=== PATIENT | male | born 1955 | race Caucasian/White ===

== ENCOUNTER → 2018-04-02 11:00 | Outpatient (CLI) | payer OTHER, SELFPAY ==
[2018-04-02 11:14] LABS: Microscopic, Urine URINE MICROSCOPIC (MICROSCOPIC)
[2018-04-02 11:30] LABS: Basophils % 0.6 % (0.1-2.0); Eosinophils # 0.1 K/mm3 (0.0-0.4); Hematocrit 48.4 % (42.0-52.0); Hemoglobin 15.9 g/dL (14.1-18.0); Lymphocytes # 1.4 K/mm3 (0.7-4.5); Lymphocytes % 29.2 K/mm3 (10-50); Mean Corpuscular HGB Conc 32.8 g/dL (31.8-35.4); Mean Corpuscular Hemoglobin 34.2 pg (27.0-31.2); Mean Corpuscular Volume 104.2 fl (80-94); Mean Platelet Volume 7.9 fl (7.4-10.4); Monocytes # 0.4 K/mm3 (0.1-1.0); Monocytes % 8.6 % (1.7-9.3); Neutrophils # 2.9 K/mm3 (1.8-7.8); Neutrophils % 59.6 % (37.0-80.0); Platelet Count 165 K/mm3 (142-424); Red Blood Count 4.65 M/mm3 (4.60-6.20); Red Cell Distribution Width 13.1 % (11.5-17.5); White Blood Count 4.9 K/mm3 (4.8-10.8)
[2018-04-02 11:39] LABS: Hemoglobin A1C 5.2 % (0.0-7.0)
[2018-04-02 11:41] LABS: Activated Partial Thrombo Time 28.1 seconds (23.6-34.0); INR 0.94 (0.9-1.1); Prothrombin Time 9.7 seconds (9.4-11.8)
[2018-04-02 11:49] LABS: Appearance,Urine CLEAR (Clear); Bilirubin,Urine Negative (Negative); Blood, Urine Negative (Negative); Color,Urine YELLOW (Yellow); Glucose,Urine (UA) Negative (Negative); Ketones,Urine Negative (Negative); Leukocyte Esterase,Urine Negative (Negative); Nitrate,Urine Negative (Negative); Protein,Urine Negative (Negative); Specific Gravity, Urine <= 1.005 (1.005-1.030); Urobilinogen,Urine 0.2 EU/dl (0.2)
--- NOTE | 2018-04-02 11:55 | XR_ITS ---
XR chest 2V HISTORY: ITS.REASON: H/O TOBACCO USE ORDERING PHYSICIAN: Dwayne Humphrey PATIENT AGE: 62 years COMPARISON: 03/05/2012 FINDINGS: The cardiomediastinal silhouette and pulmonary vascularity are within normal limits. The lungs are clear without infiltrates, suspicious nodules, or pleural effusions. No acute bony abnormalities. IMPRESSION: Negative chest, no acute finding
[2018-04-02 11:57] LABS: Bacteria,Urine Trace /lpf; Squamous Epithelial Cell,Urine Occasional #/hpf (0-5)
[2018-04-02 12:28] LABS: Anion Gap 12.1 mEq/L (5-15); Blood Urea Nitrogen 10 mg/dL (7-18); Calcium 9.2 mg/dL (8.5-10.1); Carbon Dioxide 27 mmol/L (21.0-32.0); Chloride 108 mmol/L (98-107); Creatinine,Serum 1.04 mg/dL (0.70-1.30); Estimated Glomerular Filt Rate 72 ml/min (>60); GFR (African American) 88 ML/MIN (>60); Glucose 97 mg/dL (74-106); Potassium 5.1 mmoL/L (3.5-5.1); Sodium 142 mmol/L (136-145)
== END ==
PROVIDERS: PCP Family Medicine; Visit Provider Orthopaedic Surgery
DX: Z01.818 Encounter for other preprocedural examination (principal)
CPT/HCPCS: 36415; 71046; 80048; 81001; 83036; 85025; 85610; 85730; 87070; 93005

== ENCOUNTER → 2018-04-09 07:43 | Outpatient (CLI) | payer OTHER, SELFPAY ==
--- NOTE | 2018-04-09 08:00 | CT_ITS ---
CT lung screening EXAM: CT LUNG LOW DOSE WO CONTRAST HISTORY: Asymptomatic with 52 pack year smoking history ITS.REASON: CURRENT TOBACCO USE ORDERING PHYSICIAN: Zhao Harris MD PATIENT AGE: 62 years COMPARISON: 04/11/2012 TECHNIQUE: The exam was performed on a GE Light Speed [address] scanner using 2.90 mGy CTDI. A low dose helical CT CHEST was performed on a multi-detector scanner. All CT scans at the facility use one or more dose reduction, viz: automated exposure control, ma/kV adjustment per patient size (including targeted exams where dose is matched to indication, i.e. head), or iterative reconstruction technique. The LDCT was performed in a facility that meets the criteria for the screening program. Data regarding this exam was submitted to ACR which is an approved registry. The order for this exam indicates that it came as a result of a lung cancer screening counseling shard decision-making visit that included all the elements required of such a visit including smoking cessation. The radiologist interpreting this exam meets the CMS criteria for the LDCT lung cancer screening program. The exam is reported using the Lung-RADS classification scale and reported to the ACR registry. NOTE: This study was performed for the specific purposes of lung cancer screening and is not an alternative to diagnostic chest CT. RADIATION DOSE: CTDI vol(CT dose Index-volume) = 2.90mG DLP (Dose Length Product) = 100.29 mGcm FINDINGS: Scattered small lymph nodes are present in the mediastinum not significantly changed. There is extensive coronary artery calcification. 5 mm noncalcified nodule left upper lobe anterolaterally unchanged IMPRESSION: 1. Lung RADS Category: 2, benign 2. Other findings: Coronary artery disease RECOMMENDATIONS: 12 month LDCT follow-up
== END ==
PROVIDERS: Family Provider Family Medicine; PCP Family Medicine; Visit Provider Family Medicine
DX: Z12.2 Encounter for screening for malignant neoplasm of respiratory organs (principal); Z87.891 Personal history of nicotine dependence

== ENCOUNTER 2018-08-01 10:00 | Outpatient (RCR) | payer BC, OTHER, SELFPAY | END 2018-08-01 10:05 | disposition home or self-care (01) | LOC: PT 10:00 | PROVIDERS: Visit Provider Orthopaedic Surgery | DX: Z96.651 Presence of right artificial knee joint (principal) | CPT/HCPCS: 97010; 97014; 97016; 97110; 97140; 97163; 97164; G0283 ==

== ENCOUNTER → 2019-03-18 07:45 | Outpatient (CLI) | payer SELFPAY ==
--- NOTE | 2019-03-18 07:51 | CT_ITS ---
PROCEDURE: CT HEART W CALCIUM SCORE CLINICAL HISTORY: SCREENING COMPARISON: LUNGSCREEN CT lung screening from 04/09/2018 TECHNIQUE: Axial images obtained with sagittal and coronal reformats. All CT scans at the facility use one or more dose reduction, viz: automated exposure control, ma/kV adjustment per patient size (including targeted exams where dose is matched to indication, i.e. head), or iterative reconstruction technique. FINDINGS: Coronary artery calcium score is 1634 indicating extensive calcific plaque burden with very high cardiovascular disease risk. A 3 mm noncalcified nodules present in the left upper lobe probably unchanged given the difference in technique compared to 04/09/2018 IMPRESSION: Extensive calcific plaque burden with very high cardiovascular disease risk Dictated by: Hernandez Cotter MD 03/18/2019 18:51 Signed by: <Electronically signed by Hernandez Cotter MD in [place]> 03/18/2019 18:51
== END ==
PROVIDERS: PCP Family Medicine; Visit Provider Internal Medicine Cardiovascular Disease
DX: Z13.6 Encounter for screening for cardiovascular disorders (principal)
CPT/HCPCS: 75571

== ENCOUNTER → 2020-05-21 17:52 | Outpatient (CLI) | payer BC, SELFPAY ==
[2020-05-21 18:32] LABS: Alanine Aminotransferase 39 U/L (12-78); Albumin Level 4.6 g/dl (3.5-5.0); Albumin/Globulin Ratio 1.6 (1.1-1.8); Alkaline Phosphatase 60 U/L (38-126); Anion Gap 13.4 mEq/L (5-15); Aspartate Amino Transferase 39 U/L (17-59); Bilirubin,Total 0.5 mg/dl (0.2-1.3); Blood Urea Nitrogen 17 mg/dl (9-20); Calcium 10.2 mg/dl (8.4-10.2); Carbon Dioxide 23 mmol/L (22.0-30.0); Chloride 110 mmol/L (98-107); Chol/HDL Ratio 2.3 (1-3.5); Cholesterol 121 mg/dl (140-200); Estimated Glomerular Filt Rate 67 ml/min (>60); GFR (African American) 82 ML/MIN (>60); Globulin 2.8 g/dL (1.3-3.2); Glucose 98 mg/dl (74-100); HDL Cholesterol 53 mg/dl (40-60); Potassium 4.4 mmoL/L (3.5-5.1); Sodium 142 mmol/L (136-145); Total Protein,Serum 7.4 g/dl (6.3-8.2); Triglycerides 114 mg/dl (30-150); VLDL Cholesterol 23 mg/dL (0-40)
[2020-05-21 18:39] LABS: Basophils % 0.8 % (0.1-2.0); Eosinophils % 0.7 % (0.1-12.0); Hematocrit 44.4 % (42.0-52.0); Hemoglobin 15.1 g/dL (14.1-18.0); Lymphocytes # 1.7 K/mm3 (0.7-4.5); Lymphocytes % 33.7 % (10-50); Mean Corpuscular Hemoglobin 35.8 pg (27.0-31.2); Mean Corpuscular Volume 105.1 fl (80-94); Mean Platelet Volume 10.2 fl (7.4-10.4); Monocytes # 0.4 K/mm3 (0.1-1.0); Monocytes % 7.7 % (1.7-9.3); Neutrophils # 2.9 K/mm3 (1.8-7.8); Neutrophils % 57.1 % (37.0-80.0); Platelet Count 121 K/mm3 (142-424); Red Blood Count 4.22 M/mm3 (4.60-6.20); Red Cell Distribution Width 14.2 % (11.5-17.5)
[2020-05-21 18:43] LABS: Direct LDL Cholesterol 51.49 mg/dL (100-129)
[2020-05-21 18:48] LABS: Free T4 (Free Thyroxine) 0.82 ng/dl (0.78-2.19)
[2020-05-21 18:49] LABS: 25-OH Vitamin D, Total 51.9 ng/mL (30-100)
[2020-05-21 19:03] LABS: Thyroid Stimulating Hormone 1.34 uIU/mL (0.465-4.68)
== END ==
PROVIDERS: Visit Provider Emergency Medicine
DX: R53.83 Other fatigue (principal); E55.9 Vitamin D deficiency, unspecified; Z79.899 Other long term (current) drug therapy
CPT/HCPCS: 80053; 80061; 82306; 84439; 84443; 85025

== ENCOUNTER → 2020-06-02 09:10 | Outpatient (CLI) | payer BC, SELFPAY ==
--- NOTE | 2020-06-02 09:16 | XR_ITS ---
PROCEDURE: XR CHEST 2V CLINICAL HISTORY: shortness of breath COMPARISON: CR CXR2V XR chest 2V from 04/02/2018 FINDINGS: The cardiomediastinal silhouette and pulmonary vascularity are within normal limits. There is vague decreased density in the right lower lung zone not readily apparent on the previous study and may represent an area of ground-glass infiltrate. The remaining lungs are clear. No acute bony abnormalities. IMPRESSION: Possible ground-glass pneumonia right lower lobe. This may be seen with COVID 19. Please correlate clinically Dictated by: Hernandez Cotter MD 06/02/2020 16:06 Hernandez Cotter MD in [place] 06/02/2020 16:06
--- NOTE | 2020-06-02 10:40 | PC.NURSE ---
Albuterol 0.083% given via hand held nebulizer per protocol for PFT, Pt tolerated tx well.
== END ==
PROVIDERS: PCP Emergency Medicine; Visit Provider Emergency Medicine
DX: R06.02 Shortness of breath (principal)
CPT/HCPCS: 71046; 94060; 94618; 94726; 94729

== ENCOUNTER → 2020-06-03 16:45 | Outpatient (CLI) | payer BC, SELFPAY ==
[2020-06-03 17:31] LABS: Adenovirus,PCR Not Detected (NotDetected); Bordetella Pertussis Not Detected (NotDetected); Chlamydophila Pneumoniae, PCR Not Detected (NotDetected); Coronavirus 19, PCR Not Detected (NotDetected); Coronavirus 229E Not Detected (NotDetected); Coronavirus NL63 Not Detected (NotDetected); Coronavirus OC43 Not Detected (NotDetected); Coronovirus HKU1,PCR Not Detected (NotDetected); Human Metapneumovirus Not Detected (NotDetected); Influenza A, PCR Not Detected (NotDetected); Influenza AH1, 2009 Not Detected (NotDetected); Influenza AH1, PCR Not Detected (NotDetected); Influenza AH3,PCR Not Detected (NotDetected); Influenza B, PCR Not Detected (NotDetected); Mycoplasma Pneumoniae, PCR Not Detected (NotDetected); Parainfluenza 1, PCR Not Detected (NotDetected); Parainfluenza 2, PCR Not Detected (NotDetected); Parainfluenza 3, PCR Not Detected (NotDetected); Parainfluenza 4, PCR Not Detected (NotDetected); Respiratory Syncytial Virus Not Detected (NotDetected); Rhinovirus/Enterovirus Not Detected (NotDetected)
== END ==
PROVIDERS: PCP Emergency Medicine; Visit Provider Emergency Medicine
DX: Z03.818 Encounter for observation for suspected exposure to other biological agents ruled out (principal)
CPT/HCPCS: 87581; 87633; 87798; U0003

== ENCOUNTER 2020-06-14 08:37 | Emergency (ER) | payer BC, SELFPAY ==
[2020-06-14 08:44] VITALS: BP 127/75; PULSE 70; RESP 17; TEMP 37.1; O2SAT 98; BMI 29.7
--- NOTE | 2020-06-14 09:05 | HMH.EDEYEP ---
ED Disposition Clinical Impression: Corneal abrasion Qualifiers: Encounter type: initial encounter Laterality: left Qualified Code(s): S05.02XA - Injury of conjunctiva and corneal abrasion without foreign body, left eye, initial encounter Foreign body of left eye Qualifiers: Encounter type: initial encounter Qualified Code(s): T15.92XA - Foreign body on external eye, part unspecified, left eye, initial encounter Disposition: Home, Self-Care Condition on Discharge: Good Instructions: DI for Corneal Abrasion Prescriptions: Erythromycin Base [Erythromycin 1gm opth ointment] 1 applicatio OP QID 5 Days #1 oint...g. Transmission Status: Pending to [id number] Referrals: Mitchell Calderon MD [Staff Physician] - - Critical Care Critical Care Time: No Attestation: On , the high probability of a clinically significant, sudden or life threatening deterioration of the following system(s) required my full and direct attention, intervention and personal management. The time I documented below is in addition to time spent performing reported procedures but includes the following listed in this critical care notation. Medical Decision Making - Medical Records Medical records reviewed: Yes: I reviewed the patient's medical records. - Liborio Inquiry Pt receiving controlled substance: No Vital Signs: 06/14/20 08:44 Temperature 98.7 F Temperature Source Oral Pulse Rate [Right Radial] 70 Respiratory Rate 17 Blood Pressure [Right Arm] 127/75 Blood Pressure Mean [Right Arm] 92 02 Sat by Pulse Oximetry 98 Oxygen Delivery Method Room Air Medical Decision Narrative: 64-year-old male presented to the emergency department with left eye pain. Patient has evidence of corneal abrasion as well as a foreign body. I did remove a foreign body under sterile conditions with direct visualization. There was one small piece of metal shaving that was removed. Patient was administered rifamycin topically in the emergency department. Will be discharged with a short course. Needs to follow-up with aircraft armament mechanic 24 hours. Given strict return precautions. Verbalized understanding. Eye Problem HPI - General Chief complaint: Eye Problems Stated complaint: AO [id number] FO in left eye Time Seen by Provider: 06/14/20 08:50 Mode of Arrival: Ambulatory Limitations: No Limitations Description of Symptoms (Recalled from ER Triage Doc. by RN): pt presents to ed with c/o left eye pain. pt states he was working under a vehicle yesterday and today he feels like there is something in his left eye. - History of Present Illness HPI Narrative: 64-year-old male presented to the emergency department with some left eye discomfort. Patient states that he was working underneath his tractor when he felt something go into his eye. He did try to flush it out as well scraped out, however there felt like something was in it. He states that he could see in the mirror that something was in it. He has not had any change in vision. No other trauma to the eye. Is not complaining of any headache, no focal weakness. No fevers or chills. Patient is up-to-date on tetanus immunization. No other injuries were sustained. - Related Data Home Medications Medication Instructions Recorded Confirmed amlodipine 2.5 mg tablet 2.5 mg PO DAILY 04/14/19 06/03/20 bisoprolol fumarate 5 mg tablet 5 mg PO DAILY 04/14/19 06/03/20 aspirin 81 mg tablet,delayed 81 mg PO DAILY 06/03/20 06/03/20 release atorvastatin 80 mg tablet 80 mg PO DAILY tab 06/03/20 06/03/20 omega-3 fatty acids 1,000 mg 1,000 mg PO DAILY 06/03/20 06/03/20 capsule Previous Rx's Medication Instructions Recorded albuterol sulfate 90 mcg/actuation 1 inh INHALATION QID PRN #8.5 g 06/03/20 aerosol inhaler Erythromycin Base [Erythromycin 1 applicatio OP QID 5 Days #1 06/14/20 1gm opth ointment] oint...g. Allergies Allergy/AdvReac Type Severity Reaction Status Date / Time No Known A
[2020-06-14 09:13] VITALS: BP 127/75; PULSE 68; RESP 15; TEMP 37.1; O2SAT 99
== END 2020-06-14 09:29 | disposition home or self-care (01) ==
LOC: ER 09:16
PROVIDERS: Emergency Provider Emergency Medicine; PCP Emergency Medicine
DX: T15.92XA Foreign body on external eye, part unspecified, left eye, initial encounter (principal); W45.8XXA Other foreign body or object entering through skin, initial encounter; W22.8XXA Striking against or struck by other objects, initial encounter; Y92.89 Other specified places as the place of occurrence of the external cause
CPT/HCPCS: 65220; 99282

== ENCOUNTER → 2020-07-29 08:22 | Outpatient (CLI) | payer MEDICARE, BC, SELFPAY ==
--- NOTE | 2020-07-29 08:22 | CT_ITS ---
PROCEDURE: CT LUNG SCREENING CLINICAL INDICATION: LDCT current smoker 50 pack year smoking history cad no prior COMPARISON: CT LUNGSCREEN CT lung screening from 04/09/2018 TECHNIQUE: The exam was performed on a GE Light Speed [address] scanner using 2.90 mGy CTDI. A low dose helical CT CHEST was performed on a multi-detector scanner. All CT scans at the facility use one or more dose reduction, viz: automated exposure control, ma/kV adjustment per patient size (including targeted exams where dose is matched to indication, i.e. head), or iterative reconstruction technique. The LDCT was performed in a facility that meets the criteria for the screening program. Data regarding this exam was submitted to ACR which is an approved registry. The order for this exam indicates that it came as a result of a lung cancer screening counseling shard decision-making visit that included all the elements required of such a visit including smoking cessation. The radiologist interpreting this exam meets the CMS criteria for the LDCT lung cancer screening program. The exam is reported using the Lung-RADS classification scale and reported to the ACR registry. NOTE: This study was performed for the specific purposes of lung cancer screening and is not an alternative to diagnostic chest CT. RADIATION DOSE: CTDI vol(CT dose Index-volume) = 2.90mG DLP (Dose Length Product) = 104.46 mGcm FINDINGS: No suspicious pulmonary nodules. No change in the 5 mm subpleural nodule in the left upper lobe OTHER FINDINGS: Coronary artery calcifications. Scattered small mediastinal lymph nodes. COPD IMPRESSION: Lung-RADS Category 1 Negative Follow-up: Continue annual screening with LDCT in 12 months Dictated by: Hernandez Cotter MD 08/08/2020 06:28 Hernandez Cotter MD in [place] 08/08/2020 06:28
== END ==
PROVIDERS: PCP Emergency Medicine; Visit Provider Internal Medicine Pulmonary Disease
DX: Z87.891 Personal history of nicotine dependence (principal); Z12.2 Encounter for screening for malignant neoplasm of respiratory organs
CPT/HCPCS: 71271

== ENCOUNTER → 2020-08-09 09:45 | Outpatient (CLI) | payer MEDICARE, BC, OTHER, SELFPAY | PROVIDERS: PCP Emergency Medicine; Visit Provider Internal Medicine Pulmonary Disease | DX: R06.02 Shortness of breath (principal) ==

== ENCOUNTER → 2020-08-27 12:46 | Outpatient (CLI) | payer MEDICARE, OTHER, BC, SELFPAY ==
--- NOTE | 2020-08-27 12:50 | US_ITS ---
APPROVED REPORT Indications Claudication: Bilaterally Rest Pain: Bilaterally Current Smoker FROSTBITE MULTIPLE TOES, BURNING ITCHING ARLEN FEET Risk Factors Current Smoker Pressures/Indices Right Indices Left Indices Brachial 118.00 mmHg Brachial 103.00 mmHg Low Thigh 117.00 mmHg 0.99 Low Thigh 118.00 mmHg 1.00 Calf 121.00 mmHg 1.03 Calf 126.00 mmHg 1.07 Ankle(PT) 121.00 mmHg 1.03 Ankle(PT) 129.00 mmHg 1.09 Ankle(DP) 124.00 mmHg 1.05 Ankle(DP) 125.00 mmHg 1.06 Digit 88.00 mmHg 0.75 Digit 89.00 mmHg 0.75 Findings RT MAHESH:1.05 LT MAHESH:1.09 RT TBI:0.75 LT TBI:0.75 NORMAL WAVEFORMS BILAERAL NORMAL PULSES BILATERAL Conclusion RT MAHESH:1.05 LT MAHESH:1.09 RT TBI:0.75 LT TBI:0.75 NORMAL WAVEFORMS BILAERAL NORMAL PULSES BILATERAL Normal appearing resting noninvasive lower extremity arterial study. Electronically signed by : Hernandez Cotter MD 08/27/2020 16:44:56
== END ==
PROVIDERS: PCP Emergency Medicine; Visit Provider Emergency Medicine
DX: I70.213 Atherosclerosis of native arteries of extremities with intermittent claudication, bilateral legs (principal)
CPT/HCPCS: 93923

== ENCOUNTER → 2023-04-06 10:00 | Outpatient (CLI) | payer MEDICARE, SELFPAY ==
[2023-04-06 13:06] LABS: Adenovirus,PCR Not Detected (NotDetected); Bordetella Pertussis Not Detected (NotDetected); Chlamydophila Pneumoniae, PCR Not Detected (NotDetected); Coronavirus 19, PCR Not Detected (NotDetected); Coronavirus 229E Not Detected (NotDetected); Coronavirus NL63 Not Detected (NotDetected); Coronavirus OC43 Not Detected (NotDetected); Coronovirus HKU1,PCR Not Detected (NotDetected); Human Metapneumovirus Not Detected (NotDetected); Influenza A, PCR Not Detected (NotDetected); Influenza AH1, 2009 Not Detected (NotDetected); Influenza AH1, PCR Not Detected (NotDetected); Influenza AH3,PCR Not Detected (NotDetected); Influenza B, PCR Not Detected (NotDetected); Mycoplasma Pneumoniae, PCR Not Detected (NotDetected); Parainfluenza 1, PCR Not Detected (NotDetected); Parainfluenza 2, PCR Not Detected (NotDetected); Parainfluenza 3, PCR Not Detected (NotDetected); Parainfluenza 4, PCR Not Detected (NotDetected); Respiratory Syncytial Virus Not Detected (NotDetected); Rhinovirus/Enterovirus Not Detected (NotDetected)
[2023-04-06 13:31] LABS: Basophils % 0.7 % (0.1-2.0); Eosinophils # 0.1 K/mm3 (0.0-0.4); Eosinophils % 1.5 % (0.1-12.0); Hematocrit 43.4 % (42.0-52.0); Hemoglobin 14.2 g/dL (14.1-18.0); Lymphocytes # 1.4 K/mm3 (0.7-4.5); Lymphocytes % 28.3 % (10-50); Mean Corpuscular HGB Conc 32.6 g/dL (31.8-35.4); Mean Corpuscular Hemoglobin 33.7 pg (27.0-31.2); Mean Corpuscular Volume 103.3 fl (80-94); Monocytes # 0.5 K/mm3 (0.1-1.0); Monocytes % 9.9 % (1.7-9.3); Neutrophils # 2.9 K/mm3 (1.8-7.8); Neutrophils % 59.6 % (37.0-80.0); Platelet Count 92 K/mm3 (142-424); Red Cell Distribution Width 15.9 % (11.5-17.5); White Blood Count 4.8 K/mm3 (4.8-10.8)
[2023-04-06 13:34] LABS: Alanine Aminotransferase 66 U/L (12-78); Albumin Level 4.5 g/dl (3.5-5.0); Albumin/Globulin Ratio 1.4 (1.1-1.8); Alkaline Phosphatase 91 U/L (38-126); Anion Gap 13.8 mEq/L (5-15); Aspartate Amino Transferase 58 U/L (17-59); Bilirubin,Total 0.4 mg/dl (0.2-1.3); Blood Urea Nitrogen 17 mg/dl (9-20); Calcium 9.7 mg/dl (8.4-10.2); Carbon Dioxide 23 mmol/L (22.0-30.0); Chloride 109 mmol/L (98-107); Chol/HDL Ratio 2.9 (1-3.5); Cholesterol 107 mg/dl (140-200); Estimated Glomerular Filt Rate 75 ml/min (>60); GFR (African American) 90 ML/MIN (>60); Globulin 3.2 g/dL (1.3-3.2); Glucose 108 mg/dl (74-100); HDL Cholesterol 37 mg/dl (40-60); Potassium 4.8 mmoL/L (3.5-5.1); Sodium 141 mmol/L (136-145); Total Protein,Serum 7.7 g/dl (6.3-8.2); Triglycerides 68 mg/dl (30-150); VLDL Cholesterol 14 mg/dL (0-40)
[2023-04-06 14:06] LABS: Prostate Specific Ag Screen 0.8 ng/ml (0.0-4.0); Thyroid Stimulating Hormone 0.79 uIU/mL (0.465-4.68)
== END ==
PROVIDERS: PCP Family Medicine; Visit Provider Family Medicine
DX: I10 Essential (primary) hypertension (principal); R06.02 Shortness of breath; Z12.5 Encounter for screening for malignant neoplasm of prostate; J02.9 Acute pharyngitis, unspecified; K13.79 Other lesions of oral mucosa; H92.02 Otalgia, left ear; I25.10 Atherosclerotic heart disease of native coronary artery without angina pectoris; R10.11 Right upper quadrant pain
CPT/HCPCS: 80053; 80061; 84443; 85025; 87581; 87632; 87798; G0103

== ENCOUNTER → 2023-04-19 07:45 | Outpatient (CLI) | payer MEDICARE, SELFPAY ==
--- NOTE | 2023-04-19 07:45 | US_ITS ---
FINAL REPORT TECHNIQUE: Sonographic images of the right upper quadrant were obtained. CLINICAL HISTORY: right upper quad pain FINDINGS: PANCREAS: Unremarkable. LIVER: Homogeneous. No focal hepatic lesion. No intrahepatic biliary ductal dilatation. GALLBLADDER: No gallstones. No gallbladder wall thickening or pericholecystic fluid. COMMON DUCT: 3 mm. Normal for age. RIGHT KIDNEY: The right kidney measures 11.1 cm. There is no hydronephrosis, mass, or stone. FREE FLUID: None. IMPRESSION: Unremarkable ultrasound of the right upper quadrant. Reviewed, Interpreted and Dictated by Roberta Musa MD Transcribed by Marissa Szymanski Authenticated and [facility]
== END ==
PROVIDERS: PCP Emergency Medicine; Visit Provider Family Medicine
DX: R10.11 Right upper quadrant pain (principal)
CPT/HCPCS: 76705

== ENCOUNTER 2024-03-21 13:26 | Emergency (ER) | payer MEDICARE, SELFPAY ==
[2024-03-21 13:55] VITALS: BP 130/83; PULSE 73; RESP 20; TEMP 36.6; O2SAT 97; BMI 29.7
--- NOTE | 2024-03-21 14:05 | EXP.UTC ---
Discharge Plan Disposition Patient Disposition: Home, Self-Care Condition: Good Prescriptions Prescriptions: New cephalexin 500 mg capsule 500 mg PO QID 7 Days Qty: 28 0RF sulfamethoxazole-trimethoprim [Bactrim DS] 800-160 mg tablet 1 tab PO Q12H 10 Days Qty: 20 0RF No Action atorvastatin 80 mg tablet 80 mg PO DAILY amlodipine 2.5 mg tablet 2.5 mg PO DAILY bisoprolol fumarate 5 mg tablet 5 mg PO DAILY Referrals Follow up/Referrals: Eliu Wooten DO [Primary Care Provider] - See instructions Activity Restrictions/Add. Instructions Additional Instructions/Restrictions: Keep area clean and dry Take oral antibiotics as prescribed Follow up with your Family Doctor if no improvement Straight to ER if any abdominal swelling, worsening of redness, pain, or worsening of symptoms Clinical Impressions Clinical Impression: Infected wound Instructions Patient Instructions: Cephalexin, Trimethoprim/Sulfamethoxazole (Alternative Therapy), DI for Wound Infection Print Language Print Language: Icelandic Discharge ED Provider: Katharina Neri [facility] [place] General Stated complaint: AO-Laceration to abd Mode of Arrival: Ambulatory Source of Information: Patient Limitations: No Limitations Time Seen by Provider: 03/21/24 14:05 Description of Symptoms (Recalled from Triage Doc. by RN): PATIENT C/O LACERATION TO ABDOMEN X 2 DAYS. 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 and was using knife when the knife slipped and he accidently cut himself in the [place] States that he has been putting some neosporin on it but son saw it and was concerned and wanted him to get it looked at States that it is not hurting, no drainage just mild redness Related Data Home Medications ?Medication ?Instructions ?Recorded ?Confirmed amlodipine 2.5 mg tablet 2.5 mg PO DAILY 03/21/24 03/21/24 atorvastatin 80 mg tablet 80 mg PO DAILY 03/21/24 03/21/24 bisoprolol fumarate 5 mg tablet 5 mg PO DAILY 03/21/24 03/21/24 Previous Rx's ?Medication ?Instructions ?Recorded cephalexin 500 mg capsule 500 mg PO QID 7 days #28 caps 03/21/24 sulfamethoxazole 800 1 tab PO Q12H 10 days #20 tabs 03/21/24 mg-trimethoprim 160 mg tablet (Bactrim DS) Allergies Allergy/AdvReac Type Severity Reaction Status Date / Time No Known Allergies Allergy Verified 05/04/23 08:53 Worker's Comp Is this a Worker's Comp case?: No [facility] Disclaimer: The information contained in this section may have been updated after the patient was seen, as this information can be updated by other users. Medical History (Updated 03/21/24 @ 14:24 by Katharina Neri APRN) Tuberculosis Liver disease Kidney stones Cancer Stroke COPD (chronic obstructive pulmonary disease) History of heart attack Hypertension Surgical History (Updated 03/21/24 @ 14:06 by Jeanette Monzon RN) History of open heart surgery History of cardiac cath Social History Smoking Status: Current every day smoker tobacco type: cigarettes packs per day: 1 alcohol intake: current alcohol intake frequency: 3 or more drinks per day substance use type: denies use current occupational status: employed Travel in the last 8 weeks: None household members: spouse housing: house ROS Obtained: Yes All systems reviewed & no additional complaints except as documented and Yes Systems reviewed as appropriate & no additional complaints except as documented Constitutional Constitutional: Reports system reviewed and no additional complaints, except as documented
[2024-03-21 14:25] VITALS: BP 130/83; PULSE 73; RESP 20; TEMP 36.6; O2SAT 97
== END 2024-03-21 14:29 | disposition home or self-care (01) ==
PROVIDERS: Emergency Provider Nurse Practitioner; PCP Internal Medicine
DX: L08.9 Local infection of the skin and subcutaneous tissue, unspecified (principal); S31.115A Laceration without foreign body of abdominal wall, periumbilic region without penetration into peritoneal cavity, initial encounter; W26.0XXA Contact with knife, initial encounter
CPT/HCPCS: 99204; 99212; G0463

== ENCOUNTER 2024-06-12 09:37 | Outpatient (CLI) | payer MEDICARE, SELFPAY ==
[2024-06-12 18:43] LABS: Basophils % 0.8 % (0.1-2.0); Eosinophils % 0.7 % (0.1-12.0); Hematocrit 40.4 % (42.0-52.0); Lymphocytes % 27.8 % (10-50); Mean Corpuscular HGB Conc 34.5 g/dL (31.8-35.4); Mean Corpuscular Hemoglobin 34.6 pg (27.0-31.2); Mean Corpuscular Volume 100.1 fl (80-94); Mean Platelet Volume 13.3 fl (7.4-10.4); Monocytes # 0.4 K/mm3 (0.1-1.0); Monocytes % 10.6 % (1.7-9.3); Neutrophils # 2.2 K/mm3 (1.8-7.8); Neutrophils % 60.1 % (37.0-80.0); Platelet Count 66 K/mm3 (142-424); Red Blood Count 4.04 M/mm3 (4.60-6.20); Red Cell Distribution Width 17.4 % (11.5-17.5); White Blood Count 3.6 K/mm3 (4.8-10.8)
[2024-06-12 19:12] LABS: Hemoglobin A1C 4.9 % (4.0-6.0)
[2024-06-12 19:31] LABS: Alanine Aminotransferase 34 U/L (12-78); Albumin Level 4.4 g/dl (3.5-5.0); Albumin/Globulin Ratio 1.8 (1.1-1.8); Alkaline Phosphatase 100 U/L (38-126); Anion Gap 14.6 mEq/L (5-15); Aspartate Amino Transferase 37 U/L (17-59); Bilirubin,Total 0.7 mg/dl (0.2-1.3); Blood Urea Nitrogen 15 mg/dl (9-20); Calcium 9.1 mg/dl (8.4-10.2); Carbon Dioxide 20 mmol/L (22.0-30.0); Chloride 110 mmol/L (98-107); Chol/HDL Ratio 1.6 (1-3.5); Cholesterol 99 mg/dl (140-200); Estimated Glomerular Filt Rate 84 ml/min (>60); GFR (African American) 102 ML/MIN (>60); Globulin 2.5 g/dL (1.3-3.2); Glucose 95 mg/dl (74-100); HDL Cholesterol 61 mg/dl (40-60); Potassium 4.6 mmoL/L (3.5-5.1); Sodium 140 mmol/L (136-145); Total Protein,Serum 6.9 g/dl (6.3-8.2); Triglycerides 40 mg/dl (30-150); VLDL Cholesterol 8 mg/dL (0-40)
[2024-06-12 19:42] LABS: Direct LDL Cholesterol 37.53 mg/dL (100-129)
[2024-06-12 19:49] LABS: 25-OH Vitamin D, Total 75.6 ng/mL (30-100)
[2024-06-12 20:02] LABS: Creatinine,Urine Random 35 mg/dL (Not Estab.); Microalbumin < 6.000 mg/L (0-16.7)
[2024-06-12 20:04] LABS: Prostate Specific Ag Screen 0.8 ng/ml (0.0-4.0)
== END 2024-06-12 23:59 | disposition home or self-care (01) ==
LOC: LAB.DROPOF 06-13 07:47
PROVIDERS: PCP Internal Medicine; Visit Provider Internal Medicine
DX: R53.83 Other fatigue (principal); E16.2 Hypoglycemia, unspecified; E66.9 Obesity, unspecified; E55.9 Vitamin D deficiency, unspecified; Z12.5 Encounter for screening for malignant neoplasm of prostate; Z68.31 Body mass index [BMI] 31.0-31.9, adult; E78.49 Other hyperlipidemia; I11.9 Hypertensive heart disease without heart failure; I25.10 Atherosclerotic heart disease of native coronary artery without angina pectoris
CPT/HCPCS: 80053; 80061; 82043; 82306; 82570; 83036; 85025; G0103

== ENCOUNTER 2024-06-18 12:34 | Outpatient (CLI) | payer MEDICARE, SELFPAY ==
--- NOTE | 2024-06-18 12:35 | CT_ITS ---
FINAL REPORT TECHNIQUE: Axial CT images of the chest were obtained without contrast. Low-dose protocol was utilized. This study was performed with techniques to keep radiation doses as low as reasonably achievable (ALARA). Individualized dose reduction techniques using automated exposure control or adjustment of mA and/or kV according to the patient's size were employed. CLINICAL HISTORY: lung cancer screening smoker 1.5 ppd x 30 years COMPARISON: 07/29/2020 FINDINGS: CT CHEST WITHOUT, LOW DOSE SCREENING CT Di Vol: 2.90 mGy DLP: 104.73 mGy*cm There is no axillary, mediastinal, or hilar adenopathy. The heart size is normal. Prominent coronary artery calcifications are noted. There is no pleural or pericardial effusion. The lung windows show no concerning nodules. There are no consolidations. Limited images of the upper abdomen demonstrate no acute findings. IMPRESSION: LR Category 1S: 12 month follow-up low-dose chest CT is recommended per Fleischner criteria. Modifier S: Prominent coronary artery calcifications. Reviewed, Interpreted and Dictated by Roberta Musa MD Transcribed by Isaura Griffin Authenticated and [facility]
== END 2024-06-18 23:59 | disposition home or self-care (01) ==
LOC: RAD 12:35
PROVIDERS: PCP Internal Medicine; Visit Provider Internal Medicine
DX: Z87.891 Personal history of nicotine dependence (principal)
CPT/HCPCS: 71271

== ENCOUNTER 2024-06-26 10:22 | Outpatient (CLI) | payer MEDICARE, SELFPAY ==
[2024-06-26 10:48] LABS: Reticulocyte % (Auto) 1.5 % (0.9-3.2)
[2024-06-26 11:33] LABS: Lactate Dehydrogenase 231 U/L (313-618)
[2024-06-26 12:41] LABS: Vitamin B12 767 pg/mL (239-931)
[2024-06-26 12:52] LABS: Folate > 20.00 ng/mL
[2024-06-26 14:31] LABS: Iron 140 ug/dL (49-181)
[2024-06-26 14:41] LABS: Total Iron Binding Capacity 315 ug/dL (261-462)
[2024-06-26 15:08] LABS: Ferritin 200 ng/ml (17.9-464)
[2024-06-27 05:11] LABS: Haptoglobin 57 mg/dL (32-363)
[2024-06-28 10:26] LABS: Peripheral Smear Review Scanned Result
== END 2024-06-26 23:59 | disposition home or self-care (01) ==
LOC: LAB 10:23
PROVIDERS: PCP Internal Medicine; Visit Provider Internal Medicine Medical Oncology
DX: D61.818 Other pancytopenia (principal); D64.9 Anemia, unspecified
CPT/HCPCS: 36415; 82607; 82728; 82746; 83010; 83540; 83550; 83615; 85044; 86880

== ENCOUNTER 2024-07-09 08:17 | Outpatient (CLI) | payer MEDICARE, SELFPAY ==
[2024-07-09 09:09] LABS: Blood Urea Nitrogen 12 mg/dl (9-20); Estimated Glomerular Filt Rate 74 ml/min (>60); GFR (African American) 90 ML/MIN (>60)
== END 2024-07-09 23:59 | disposition home or self-care (01) ==
LOC: LAB 08:18
PROVIDERS: PCP Internal Medicine; Visit Provider Internal Medicine Medical Oncology
DX: D61.818 Other pancytopenia (principal)
CPT/HCPCS: 36415; 82565; 84520

== ENCOUNTER 2024-08-19 07:54 | Outpatient (CLI) | payer MEDICARE, SELFPAY ==
--- NOTE | 2024-08-19 07:55 | CT_ITS ---
FINAL REPORT TECHNIQUE: Axial CT images of the abdomen were obtained with IV contrast only. Coronal reformatted images were also obtained. This study was performed with techniques to keep radiation doses as low as reasonably achievable (ALARA). Individualized dose reduction techniques using automated exposure control or adjustment of mA and/or kV according to the patient''s size were employed. CLINICAL HISTORY: splenomegaly, concern for cirrhosis of the liver COMPARISON: None FINDINGS: The lung bases are clear. The liver is homogeneous. The gallbladder appears normal without evidence of gallstones. There is no evidence of biliary ductal dilatation. The pancreas appears normal. The spleen size is within normal limits. There is no evidence of renal mass or hydronephrosis. There is no evidence of adenopathy. No abnormal fluid collection is seen. No localized inflammatory processes identified. Dense coronary artery calcifications are noted. IMPRESSION: No mass or localized inflammatory process identified. Homogeneous liver. Reviewed, Interpreted and Dictated by Enmanuel Carrero MD Transcribed by Isaura Griffin Authenticated and [facility]
[2024-08-19 08:18] LABS: Blood Urea Nitrogen 13 mg/dl (9-20); Estimated Glomerular Filt Rate 74 ml/min (>60); GFR (African American) 90 ML/MIN (>60)
[2024-08-19] MEDS: SODIUM CHLORIDE 0.9% 10ML SYR (RAD ONLY) 10 ML IV (08:47)
[2024-08-19] MEDS: IOPAMIDOL-370 (76%);100ML BOTTLE 75 ML IV (08:47)
== END 2024-08-19 23:59 | disposition home or self-care (01) ==
PROVIDERS: PCP Internal Medicine; Visit Provider Internal Medicine Medical Oncology
DX: D61.818 Other pancytopenia (principal)
CPT/HCPCS: 36415; 74160; 82565; 84520; Q9967

== ENCOUNTER 2024-09-16 09:11 | Outpatient (CLI) | payer MEDICARE, SELFPAY ==
[2024-09-16 09:29] LABS: Basophils % 0.9 % (0.1-2.0); Eosinophils % 0.9 % (0.1-12.0); Hematocrit 32.5 % (42.0-52.0); Hemoglobin 11.6 g/dL (14.1-18.0); Lymphocytes # 0.9 K/mm3 (0.7-4.5); Lymphocytes % 38.7 % (10-50); Mean Corpuscular HGB Conc 35.7 g/dL (31.8-35.4); Mean Corpuscular Hemoglobin 35.8 pg (27.0-31.2); Mean Corpuscular Volume 100.3 fl (80-94); Monocytes # 0.3 K/mm3 (0.1-1.0); Monocytes % 10.9 % (1.7-9.3); Neutrophils # 1.1 K/mm3 (1.8-7.8); Neutrophils % 48.2 % (37.0-80.0); Red Blood Count 3.24 M/mm3 (4.60-6.20); Red Cell Distribution Width 17.9 % (11.5-17.5); White Blood Count 2.3 K/mm3 (4.8-10.8)
[2024-09-16 09:47] LABS: Platelet Count 22 K/mm3 (142-424)
[2024-09-16 11:19] LABS: Albumin Level 4.6 g/dl (3.5-5.0); Chloride 109 mmol/L (98-107); Potassium 4.6 mmoL/L (3.5-5.1); Sodium 139 mmol/L (136-145)
[2024-09-16 11:21] LABS: Alanine Aminotransferase 49 U/L (12-78); Blood Urea Nitrogen 15 mg/dl (9-20); Estimated Glomerular Filt Rate 84 ml/min (>60); GFR (African American) 101 ML/MIN (>60)
[2024-09-16 11:22] LABS: Albumin/Globulin Ratio 1.9 (1.1-1.8); Alkaline Phosphatase 95 U/L (38-126); Anion Gap 11.6 mEq/L (5-15); Aspartate Amino Transferase 43 U/L (17-59); Bilirubin,Total 0.7 mg/dl (0.2-1.3); Calcium 9.4 mg/dl (8.4-10.2); Carbon Dioxide 23 mmol/L (22.0-30.0); Globulin 2.4 g/dL (1.3-3.2); Glucose 110 mg/dl (74-100)
[2024-09-16 11:59] LABS: Activated Partial Thrombo Time 24.8 seconds (22.5-28.5); INR 0.85 (0.9-1.1); Prothrombin Time 9.5 seconds (9.2-12.1)
[2024-09-17 14:11] LABS: Free Kappa Lt Chains 24.4 mg/L (3.3-19.4); Free Lambda Lt Chains 16.7 mg/L (5.7-26.3)
[2024-09-17 17:10] LABS: Albumin 4.1 g/dL (2.9-4.4); Alpha-1-Globulin 0.2 g/dL (0.0-0.4); Alpha-2-Globulin 0.5 g/dL (0.4-1.0); Gamma Globulin 1.3 g/dL (0.4-1.8); Protein, Total 7.1 g/dL (6.0-8.5)
[2024-09-18 15:48] LABS: Immunoglobulin A, Qn 292 mg/dL (61-437); Immunoglobulin G, Qn 1221 mg/dL (603-1613); Immunoglobulin M, Qn 98 mg/dL (20-172)
[2024-09-24 11:16] LABS: PDF SCANNED IMAGE
== END 2024-09-16 23:59 | disposition home or self-care (01) ==
PROVIDERS: PCP Internal Medicine; Visit Provider Internal Medicine Medical Oncology
DX: D64.9 Anemia, unspecified (principal); D61.818 Other pancytopenia; Z79.899 Other long term (current) drug therapy
CPT/HCPCS: 36415; 80053; 82784; 83883; 84155; 84165; 85025; 85610; 85730; 86334

== ENCOUNTER 2024-09-19 08:53 | Outpatient (CLI) | payer MEDICARE, SELFPAY ==
[2024-09-19] VITALS (9 sets, daily range): BP systolic 115–133; BP diastolic 65–87; PULSE 79–92; RESP 16–18; TEMP 36.6; O2SAT 96–99; BMI 30.5
--- NOTE | 2024-09-19 08:53 | CT_ITS ---
FINAL REPORT CLINICAL HISTORY: .bone marrow biopsy FINDINGS: CT-GUIDED BONE MARROW BIOPSY HISTORY: Abnormal labs, critical results, low platelets. ATTENDING PHYSICIAN: Dr. Boggs PHYSICIAN BEAUTY SPECIALIST: Buffy Walker PA-C CONSCIOUS SEDATION: 2 mg of IV Versed and 50 mcg of fentanyl were administered. Continuous vital sign monitoring was used. Nursing staff was present during the sedation process. Overall sedation time was 15 minutes. TECHNIQUE: Informed consent was obtained from the patient. Risks of the procedure were discussed prior to beginning. The left lower back was prepped in a routine sterile fashion and locally anesthetized with 1% lidocaine. Using CT guidance a bone marrow biopsy needle was directed toward the left posterior iliac bone. The needle was positioned within the outer periphery of the bone. Approximately 20 mL of aspirate was obtained and sent to the lab. Subsequently, an approximate 2 cm core biopsy was obtained and sent to the lab. The patient tolerated the procedure well and left the department in good condition. IMPRESSION: Technically successful CT guided bone marrow biopsy, as described above. Reviewed, Interpreted and Dictated by Charlene Boggs MD Transcribed by Buffy Walker PA-C Authenticated and [facility]
--- NOTE | 2024-09-19 09:14 | PC.NURSE ---
Spoke to Heide Cross in radiology regarding pt's most recent platelet count of 22. Heide spoke to Reddy in radiology regarding this value and they are ok to proceed, regardless of platelet count
[2024-09-19] MEDS: LACTATED RINGERS 1000ML 1,000 ML 25 ML IV (09:40)
[2024-09-19] MEDS: LIDOCAINE 1% 20ML MDV 10 ML SUBCUT (11:07)
--- NOTE | 2024-09-19 12:56 | PC.NURSE ---
1250: Pt d/c home. VSS. No bleeding noted on dressing. Discharge instructions given to pt and pt's family member.
== END 2024-09-19 12:50 | disposition home or self-care (01) ==
PROVIDERS: PCP Internal Medicine; Visit Provider Internal Medicine Medical Oncology
DX: D61.818 Other pancytopenia (principal); D64.9 Anemia, unspecified
CPT/HCPCS: 38221; 77012; 85097; 88184; 88185; 88305; 88311; 88313; 88360; J2250; J3010; J7120

== ENCOUNTER 2024-10-06 09:02 | Outpatient (CLI) | payer MEDICARE, SELFPAY ==
[2024-10-06 09:14] VITALS: BMI 31.3
[2024-10-06 09:38] LABS: Eosinophils % 0.5 % (0.1-12.0); Hematocrit 27.2 % (42.0-52.0); Lymphocytes # 0.7 K/mm3 (0.7-4.5); Lymphocytes % 39.5 % (10-50); Mean Corpuscular HGB Conc 36.8 g/dL (31.8-35.4); Mean Corpuscular Hemoglobin 37.2 pg (27.0-31.2); Mean Corpuscular Volume 101.1 fl (80-94); Monocytes # 0.2 K/mm3 (0.1-1.0); Monocytes % 11.4 % (1.7-9.3); Neutrophils # 0.9 K/mm3 (1.8-7.8); Neutrophils % 48.6 % (37.0-80.0); Red Blood Count 2.69 M/mm3 (4.60-6.20); Red Cell Distribution Width 18.1 % (11.5-17.5); White Blood Count 1.9 K/mm3 (4.8-10.8)
[2024-10-06 09:41] LABS: Albumin Level 4.5 g/dl (3.5-5.0); Chloride 109 mmol/L (98-107); Sodium 137 mmol/L (136-145)
[2024-10-06 09:42] LABS: Potassium 4.2 mmoL/L (3.5-5.1)
[2024-10-06 09:44] LABS: Alanine Aminotransferase 28 U/L (12-78); Albumin/Globulin Ratio 1.7 (1.1-1.8); Alkaline Phosphatase 90 U/L (38-126); Anion Gap 10.2 mEq/L (5-15); Aspartate Amino Transferase 29 U/L (17-59); Bilirubin,Total 0.4 mg/dl (0.2-1.3); Blood Urea Nitrogen 11 mg/dl (9-20); Carbon Dioxide 22 mmol/L (22.0-30.0); Creatinine Clearance Estimated 89 mL/min (50-200); Estimated Glomerular Filt Rate 84 ml/min (>60); GFR (African American) 101 ML/MIN (>60); Globulin 2.6 g/dL (1.3-3.2); Total Protein,Serum 7.1 g/dl (6.3-8.2)
[2024-10-06 09:45] LABS: Calcium 9.2 mg/dl (8.4-10.2); Glucose 102 mg/dl (74-100)
[2024-10-06 09:46] LABS: Platelet Count 21 K/mm3 (142-424)
--- NOTE | 2024-10-06 11:39 | PC.NURSE ---
0925 CBC/CMP labs obtained via venipuncture to R AC x1 stick with butterfly needle. 0945 Labs results available; patient does not need blood or platelets today based on standing MD order parameters. 0952 Patient discharged home/stable.
== END 2024-10-06 09:52 | disposition home or self-care (01) ==
LOC: INF 09:02
PROVIDERS: PCP Internal Medicine; Visit Provider Internal Medicine Medical Oncology
DX: D48.9 Neoplasm of uncertain behavior, unspecified (principal)
CPT/HCPCS: 36415; 80053; 85025

== ENCOUNTER 2024-10-29 09:04 | Outpatient (CLI) | payer MEDICARE, SELFPAY ==
[2024-10-29 09:10] VITALS: BMI 31.3
[2024-10-29 09:24] LABS: Lymphocytes # 0.7 K/mm3 (0.7-4.5); Lymphocytes % 40.1 % (10-50); Mean Corpuscular HGB Conc 36.4 g/dL (31.8-35.4); Mean Corpuscular Volume 101.9 fl (80-94); Monocytes # 0.1 K/mm3 (0.1-1.0); Monocytes % 6.4 % (1.7-9.3); Neutrophils # 0.9 K/mm3 (1.8-7.8); Neutrophils % 52.9 % (37.0-80.0); Red Blood Count 2.16 M/mm3 (4.60-6.20); Red Cell Distribution Width 18.7 % (11.5-17.5); White Blood Count 1.7 K/mm3 (4.8-10.8)
--- NOTE | 2024-10-29 09:25 | PC.NURSE ---
0925-pt to d/c home hgb 8.0 and plt 21; pt to return on 10/30/24 for recheck
[2024-10-29 09:26] LABS: Platelet Count 21 K/mm3 (142-424)
[2024-10-29 09:40] LABS: Albumin Level 4.3 g/dl (3.5-5.0); Chloride 111 mmol/L (98-107); Potassium 3.8 mmoL/L (3.5-5.1); Sodium 141 mmol/L (136-145)
[2024-10-29 09:42] LABS: Blood Urea Nitrogen 13 mg/dl (9-20); Creatinine Clearance Estimated 69 mL/min (50-200); Estimated Glomerular Filt Rate 55 ml/min (>60); GFR (African American) 66 ML/MIN (>60)
[2024-10-29 09:43] LABS: Alanine Aminotransferase 29 U/L (12-78); Albumin/Globulin Ratio 1.3 (1.1-1.8); Alkaline Phosphatase 77 U/L (38-126); Anion Gap 13.8 mEq/L (5-15); Aspartate Amino Transferase 36 U/L (17-59); Bilirubin,Total 0.6 mg/dl (0.2-1.3); Calcium 9.5 mg/dl (8.4-10.2); Carbon Dioxide 20 mmol/L (22.0-30.0); Globulin 3.3 g/dL (1.3-3.2); Glucose 110 mg/dl (74-100); Total Protein,Serum 7.6 g/dl (6.3-8.2)
--- OUTSIDE RECORDS SUMMARY | 2024-10-30 21:53 | XMS_ITS ---
Author Organization Unknown TREATMENT PLAN Planned Care Start Date Provider Encounter for Check-up [id number] [facility]
--- OUTSIDE RECORDS SUMMARY | 2024-10-30 21:53 | XMS_ITS ---
Laboratory report Created on: September 20, 2024 SERINA AGUILAR : 1955 Sex: Male Author Organization Unknown PROBLEMS Problems List Code Description RESULTS Laboratory Orders Date Order Code Test 2024-09-16 [id number] PROTEIN ELEC + I NTERP, SERUM 2024-09-16 [id number] FREE K+L LT PAPI NS,QN,S 2024-09-16 [id number] IMMUNOFIXATION, SERUM Laboratory Results Date LOINC Test Value Unit Reference Range Interpre tation 2024-09-16 2885-2 PROTEIN, TOTAL 7.1 G/DL 6.0-8.5 2024-09-16 2862-1 ALBUMIN 4.1 G/DL 2.9-4.4 2024-09-16 2865-4 [id number]-6-[id number] .2 G/DL 0.0-0.4 2024-09-16 2868-8 CXJOA-8-LWPJIZIE .5 G/DL 0.4-1.0 2024-09-16 2871-2 BETA GLOBULIN 1 G/DL 0.7-1.3 2024-09-16 2874-6 GAMMA GLOBULIN 1.3 G/DL 0.4-1.8 2024-09-16 61360-1 M-SPIKE NOB G/DL NOT OBSERVED 2024-09-16 22557-8 GLOBULIN, TOTAL 3 G/DL 2.2-3.9 2024-09-16 1759-0 A/G RATIO 1.4 0.7-1.7 2024-09-16 51367-9 P E INTERPRETATION, S SPEP1 2024-09-16 34853-9 PDF IMAGE 2024-09-16 [id number] FREE KAPPA LT CHAINS,S 24.4 MG/L 3.3-19 .4 H 2024-09-16 86356-0 FREE LAMBDA LT CHAINS,S 16.7 MG/L 5.7-2 6.3 2024-09-16 32781-4 KAPPA/LAMBDA RATIO,S 1.46 0.26-1.6 5 2024-09-16 95978-4 IMMUNOFIXATION R ESULT, SERUM UPEIP 2024-09-16 2465-3 IMMUNOGLOBULIN G , QN, SERUM 1221 MG/DL 603-1613 2024-09-16 2458-8 IMMUNOGLOBULIN A , QN, SERUM 292 MG/DL 61-437 2024-09-16 2472-9 IMMUNOGLOBULIN M , QN, SERUM 98 MG/DL 20-172
== END 2024-10-29 09:25 | disposition home or self-care (01) ==
LOC: INF 09:04
PROVIDERS: PCP Family Medicine; Visit Provider Internal Medicine Medical Oncology
DX: D46.9 Myelodysplastic syndrome, unspecified (principal)
CPT/HCPCS: 36415; 80053; 85025

== ENCOUNTER 2024-10-29 12:55 | Observation (INO) | payer MEDICARE, SELFPAY ==
[2024-10-29] VITALS (9 sets, daily range): BP systolic 94–137; BP diastolic 57–78; PULSE 63–80; RESP 14–22; TEMP 36.7–37.1; O2SAT 88–100; BMI 29.7; BMI 30.4
--- NOTE | 2024-10-29 13:05 | ECG_ITS ---
APPROVED REPORT Exam: Resting ECG HR:71 bpm ECG Measurements Heart Rate 71 AXES [place] 185 P 66 QRSd 97 QRS 49 QT 383 T 48 QTc 405 Conclusion SINUS RHYTHM NORMAL ECG Electronically signed by : SAE CARPIO, 10/29/2024 15:38:18
--- NOTE | 2024-10-29 13:15 | CT_ITS ---
FINAL REPORT TECHNIQUE: Thin section axial CT with contrast with multiplanar reconstruction This study was performed with techniques to keep radiation doses as low as reasonably achievable, (ALARA). Individualized dose reduction techniques using automated exposure control or adjustment of mA and/or kV according to the patient''s size were employed. CLINICAL HISTORY: pt is here for shortness of breath that is getting worse, pt said his dr sent him here for abnormal labs and then he is actively being treated for leukemia and jsust finished first round of chemo COMPARISON: Low-dose 06/18/2024 FINDINGS: Moderate respiratory motion artifact decreases sensitivity of this exam. Pulmonary vessels enhance in normal fashion without evidence of embolism. Thoracic aorta shows no dissection or aneurysm. There is no evidence of pneumonia. A 3 mm peripheral nodule in the left upper lobe on image 45 is unchanged. There is no significant pleural effusion. There is no significant pericardial effusion. No intrathoracic adenopathy. No axillary adenopathy. IMPRESSION: No evidence of pulmonary embolism No acute lung disease or adenopathy. Reviewed, Interpreted and Dictated by Charlene Boggs MD Transcribed by Isaura Griffin Authenticated and [facility]
--- NOTE | 2024-10-29 13:25 | HMH.EDCP ---
Discharge Plan Disposition Patient Disposition: Admitted Condition: Good Clinical Impressions Clinical Impression: New onset of congestive heart failure Discharge ED Provider: Maia Alonso HPI <Margot Tijerina ([facility]), TRASHMAN - Last Filed: 10/29/24 16:00> General Chief Complaint: Shortness of Breath/Dyspnea Stated Complaint: SOA abnormal lab Time Seen by Provider: 10/29/24 13:06 Mode of Arrival: Ambulatory Source of Information: Patient Description of Symptoms (Recalled from ER Triage Doc. by RN): pt is here for shortness of breath that is getting worse, pt said his dr sent him here for abnormal labs and then he is actively being treated for leukemia and jsust finished first round of chemo History of Present Illness HPI narrative: 69-year-old male presents for complaints of shortness of breath. Patient states he states he is doctor this morning had a labs drawn and was told to come to the ER for abnormal labs. Patient states he just finished 7 days of chemotherapy for leukemia. Patient states shortness of breath has worsened last night today. Patient denies chest pain or pressure Related Data Home Medications ?Medication ?Instructions ?Recorded ?Confirmed amlodipine 2.5 mg tablet 2.5 mg PO DAILY 03/21/24 10/29/24 bisoprolol fumarate 5 mg tablet 5 mg PO DAILY 03/21/24 10/29/24 aspirin 81 mg chewable tablet 81 mg PO DAILY 06/12/24 10/29/24 (Children's Aspirin) atorvastatin 80 mg tablet (Lipitor) 80 mg PO DAILY 06/12/24 10/29/24 nitroglycerin 0.4 mg sublingual 0.4 mg buccal Q5MINP PRN angina 09/16/24 10/29/24 tablet cetirizine 10 mg capsule (Allergy 10 mg PO DAILY 09/19/24 10/29/24 Relief (cetirizine)) cholecalciferol (vitamin D3) 50 50 mcg PO DAILY 09/19/24 10/29/24 mcg (2,000 unit) capsule (Vitamin D3) sejbgsahvjbn-dywscqyr-kunitg tablet 1 tab PO DAILY 09/19/24 10/29/24 omega-3 fatty acids 0 mg PO DAILY 09/19/24 10/29/24 isosorbide mononitrate 30 mg 30 mg PO DAILY 10/29/24 10/29/24 tablet,extended release 24 hr rosuvastatin 40 mg tablet 40 mg PO DAILY 10/29/24 10/29/24 Previous Rx's ?Medication ?Instructions ?Recorded tadalafil 5 mg tablet 5 mg PO DAILY PRN sexual activity 06/12/24 #30 tabs Allergies Allergy/AdvReac Type Severity Reaction Status Date / Time No Known Allergies Allergy Verified 10/17/24 13:38 PFS <Margot Tijerina ([facility]), TRASHMAN - Last Filed: 10/29/24 16:00> [facility] Disclaimer: The information contained in this section may have been updated after the patient was seen, as this information can be updated by other users. Medical History (Updated 10/29/24 @ 19:04 by Eliu Marlow MD) Leukemia Aneurysm Colon cancer screening Anemia Kidney stones COPD (chronic obstructive pulmonary disease) Hypertension Surgical History H/O shoulder surgery S/P right knee surgery History of cardiac cath Family History (Reviewed 10/29/24 @ 13:26 by Margot Tijerina ([facility]), TRASHMAN) Heart attack Social History (Updated 10/29/24 @ 17:19 by Martha Rodriguez, RN) Smoking Status: Current every day smoker tobacco type: cigarettes packs per day: 1 alcohol intake: current alcohol intake frequency: 3 or more drinks per day substance use type: denies use current occupational status: employed Travel in the last 8 weeks: None household members: spouse housing: house Have you lived/traveled outside [place] in past 30 days?: No Contact w/someone who lives/traveled outside US past 30 days?: No Exposure to someone with infectious disease in past 14 days?: No Do you have a fever (greater than 100.4 F or 38 C)?: No Have you tested positive for COVID-19: No Exposed to someone with COVID-19 in past 14 days?: No Do you have a sore throat?: No Do you have a cough?: No Do you have any weakness?: No Do you have any diarrhea?: No Are you experiencing any unusual bleeding?: No Do you have any muscle aches/pain?: No Do you have any abdominal pain?: No Are you experiencing loss of taste or smell?: No Other Medical History Have you received the Flu Vaccine for this season: No Have you received the Pneumonia Vaccine: No <Margot Greenereese ([facility]), TRASHMAN - Last Filed: 10/29/24 16:00> ROS Obtained: Yes Systems reviewed as appropriate & no additional complaints except as documented Cardiovascular Cardiovascular: Reports system reviewed and no additional complaints, except as documented, Reports as per HPI, Reports dyspnea and Reports dyspnea on exertion Respiratory Respiratory: Reports system reviewed and no additional complaints, except as documented, Reports as per HPI, Reports dyspnea and Reports dyspnea on exertion Physical Exam <Margot reese ([facility]), TRASHMAN - Last Filed: 10/29/24 16:00> General General appearance: alert and in no apparent distress Respiratory Respiratory exam: Present normal lung sounds bilaterally Cardiovascular Cardiovascular exam: Present regular rate and normal rhythm Abdominal Exam Abdominal exam: Present soft Neurological Exam Neurological exam: Present alert and oriented X3 Skin Skin exam: Present warm and intact HEART Score <Margot Tijerina ([facility]), TRASHMAN - Last Filed: 10/29/24 16:00> HEART Score HEART Score: 5 <Maia Alonso DO - Last Filed: 10/29/24 15:36> HEART Score HEART Score assessment performed?: Yes History (anamnesis): Moderately suspicious ECG: Normal Age: >65 years Risk factors: Atherosclerosis history Troponin: </= normal limit HEART Score: 5 <Aston Das MD - Last Filed: 10/29/24 20:28> HEART Score HEART Score: 5 Procedures <Maia Alonso DO - Last Filed: 10/29/24 15:36> Limited Ultrasound Interpretation:: Limited cardiac ultrasound Indication: Shortness of breath, dyspnea on exertion Identified cardiac views: [-Cardiac parasternal long axis] [-Cardiac parasternal short axis] [-Cardiac apical four-chamber] [-Cardiac subxiphoid] Findings: [-Cardiac activity present -Gross wall motion abnormal - LV -Pericardial effusion absent -Right heart strain absent] Impression: -[From above] - Newly reduced EF, rough estimate 30-40%. No effusion, no right heart strain. Images were saved to permanent archive The study was technically adequate CPT: 62477 This study was performed by me, and I personally interpreted all images/videos. Based on my clinical judgement, these images were adequate and did not necessitate further imaging. Critical Care <Maia Alonso DO - Last Filed: 10/29/24 15:36> Critical Care Time Critical Care Time: No Medical Decision Making <Margot Greenereese ([facility]), TRASHMAN - Last Filed: 10/29/24 16:00> Vital Signs Vital Signs: 10/29/24 13:09 10/29/24 13:42 10/29/24 14:00 Temperature 98.4 F Temperature Source Oral Pulse Rate 67 63 Pulse Rate [Left Radial] 72 Respiratory Rate 20 19 18 Blood Pressure 121/76 120/71 Blood Pressure [Right Arm] 137/75 Blood Pressure Mean [Right Arm] 95 Blood Pressure Source Blood Pressure Source [Right Arm] Blood Pressure Position [Right Arm] 02 Sat by Pulse Oximetry 88 L 100 100 Oxygen Delivery Method Room Air 10/29/24 14:30 10/29/24 15:50 10/29/24 16:04 Temperature 98.2 F 98.0 F Temperature Source Oral Oral Pulse Rate 67 78 Pulse Rate [Left Radial] 77 Respiratory Rate 14 22 20 Blood Pressure 128/78 128/75 Blood Pressure [Right Arm] 114/76 Blood Pressure Mean [Right Arm] 88 Blood Pressure Source Automatic Cuff Blood Pressure Source [Right Arm] Automatic Cuff Blood Pressure Position [Right Arm] Sitting 02 Sat by Pulse Oximetry 100 99 Oxygen Delivery Method Room Air Room Air 10/29/24 16:04 10/29/24 17:00 Temperature Temperature Source Pulse Rate Pulse Rate [Left Radial] Respiratory Rate Blood Pressure Blood Pressure [Right Arm] Blood Pressure Mean [Right Arm] Blood Pressure Source Blood Pressure Source [Right Arm] Blood Pressure Position [Right Arm] 02 Sat by Pulse Oximetry Oxygen Delivery Method Room Air Room Air Lab Data Labs: Lab Results 10/29/24 13:17: WBC 2.0 L, RBC 2.21 L, Hgb 8.2 L, Hct 22.7 L, MCV 102.7 H, MCH 37.1 H, MCHC 36.1 H, RDW 19.0 H, Plt Count 24 L*, Neut % (Auto) 51.9, Lymph % (Auto) 42.6, [place] % (Auto) 5.0, Eos % (Auto) 0.0 L, Baso % (Auto) 0.0 L, Neut # (Auto) 1.1 L, Lymph # (Auto) 0.9, [place] # (Auto) 0.1, Eos # (Auto) 0.0, Baso # (Auto) 0.0, Total Counted 100, Neutrophils % (Manual) 59, Lymphocytes % (Manual) 38, Monocytes % (Manual) 3, Platelet Estimate Marked decrease, Anisocytosis 1+, Ovalocytes 2+, PT 10.8, INR 0.96, APTT 31.8 H, Sodium 140, Potassium 3.9, Chloride 111 H, Carbon Dioxide 21 L, Anion Gap 11.9, BUN 11, Creatinine 1.20, Estimated Creat Clear 71, Estimated GFR 60, Est GFR ( Amer) 73, Glucose 106 H, Calcium 9.6, Phosphorus 2.9, Magnesium 2.2, Total Bilirubin 0.7, AST 36, ALT 30, Alkaline Phosphatase 65, Troponin I < 0.01, NT-Pro-B Natriuret Pep 864 H, Total Protein 7.9, Albumin 4.5, Globulin 3.4 H, Albumin/Globulin Ratio 1.3 10/29/24 13:17 10/29/24 13:17 Response Orders (Tests/Meds): ED MEDICATIONS Generic Name Dose Route Start Last Admin Trade Name Freq PRN Reason Stop Dose Admin Acetaminophen 650 mg 10/29/24 15:17 Acetaminophen 325mg Tab PO 11/28/24 15:16 Q4HP PRN Fever or Mild Pain (1-3) Aspirin 81 mg 10/30/24 09:00 Aspirin 81mg Chewable Tablet PO 11/29/24 08:59 DAILY LNIDY Ondansetron HCl 4 mg 10/29/24 15:17 Ondansetron 4mg/2ml Vial IV 11/28/24 15:16 Q8HP PRN Nausea Discontinued Medications Generic Name Dose Route Start Last Admin Trade Name Freq PRN Reason Stop Dose Admin Furosemide 80 mg 10/29/24 15:17 10/29/24 15:49 Furosemide 100mg/10ml Vial IV 10/29/24 15:18 80 mg ONCE ONE Administration Iopamidol 70 ml 10/29/24 13:33 10/29/24 13:33 Iopamidol-370 (76%);100ml Bottle IV 10/29/24 13:34 70 ml ONCE ONE Administration Sodium Chloride 10 ml 10/29/24 13:33 10/29/24 13:33 Sodium Chloride 0.9% 10ml Syr (Rad Only) IV 10/29/24 13:34 10 ml ONCE ONE Administration Sodium Chloride 50 ml 10/29/24 13:33 10/29/24 13:33 0.9 % Sodium Chloride 50 Ml Vial IV 10/29/24 13:34 50 ml ONCE ONE Administration ORDERS Category Date Time Status CT angio chest PE protocol Stat Cat Scan 10/29/24 13:15 Completed Cardiology Consult [Consult to Cardiology] [CONS] Cons 10/29/24 15:23 Active Routine POCUS Point of Care (ER Only) Stat Exams 10/29/24 13:26 Completed BNP [NT Pro Brain Natriuretic Pep.] Stat Lab 10/29/24 13:17 Completed CBC Man Diff [Complete Blood Count Man Dif] Stat Lab 10/29/24 13:17 Completed CMP [Comprehensive Metabolic Panel] Stat Lab 10/29/24 13:17 Completed Complete Blood Count Auto Diff AMLAB Lab 10/30/24 06:00 Ordered Complete Blood Count Auto Diff AMLAB Lab 10/31/24 06:00 Ordered Complete Blood Count Auto Diff AMLAB Lab 11/01/24 06:00 Ordered Complete Blood Count Auto Diff AMLAB Lab 11/02/24 06:00 Ordered Complete Blood Count Auto Diff AMLAB Lab 11/03/24 06:00 Ordered Comprehensive Metabolic Panel AMLAB Lab 10/30/24 06:00 Ordered Comprehensive Metabolic Panel AMLAB Lab 10/31/24 06:00 Ordered Comprehensive Metabolic Panel AMLAB Lab 11/01/24 06:00 Ordered Comprehensive Metabolic Panel AMLAB Lab 11/02/24 06:00 Ordered Comprehensive Metabolic Panel AMLAB Lab 11/03/24 06:00 Ordered Lipid Panel AMLAB Lab 10/30/24 06:00 Ordered MAG [Magnesium] Stat Lab 10/29/24 13:17 Completed Magnesium AMLAB Lab 10/30/24 06:00 Ordered Magnesium AMLAB Lab 10/31/24 06:00 Ordered Magnesium AMLAB Lab 11/01/24 06:00 Ordered Magnesium AMLAB Lab 11/02/24 06:00 Ordered Magnesium AMLAB Lab 11/03/24 06:00 Ordered PHOS [Phosphorous] Stat Lab 10/29/24 13:17 Completed PT INR [Prothrombin Time INR] Stat Lab 10/29/24 13:17 Completed PTT [Activated Partial Thrombo Time] Stat Lab 10/29/24 13:17 Completed Trop I [Troponin I] Stat Lab 10/29/24 13:17 Completed Troponin I Q3H Lab 10/29/24 16:30 Completed Troponin I Q3H Lab 10/29/24 19:30 Completed CA echo doppler complete Routine Y 10/29/24 15:18 Completed MDM Narrative Medical Decision Narrative: DO Gavin: I was consulted by the ARIEL, and we discussed the complexity of the problems being addressed. I approved the treatment and management plan for this patient's care in the emergency department, thus performing a substantive portion of the medical decision making. Patient presents with significant dyspnea on exertion, which is new after starting chemotherapy for leukemia. He also has worsening pancytopenia, worsening anemia. On assessment, he is resting comfortably in no acute distress with reassuring vital signs, he is not requiring supplemental oxygen. He does not desaturate with walking, however I performed a bedside cardiac ultrasound which was concerning for a newly reduced EF. I reviewed prior records from and noted that the patient had a previous stress test 2 weeks ago that demonstrated a small area of irregularity of the left ventricle however he had an EF of 69%. Today, I give an estimation of his EF around 30 to 40%, however this was bedside for echocardiogram and not a formal echo. Ultimately, I feel patient would benefit from admission for further cardiac workup given his significant symptoms and newly reduced EF. Spoke with Dr. Sommers he recommends 80 mg of Lasix IV x 1 dose okay for admission. Spoke with Dr. Eliu Montgomery hospitalist okayed patient for admission for new onset congestive heart failure Dr. Das assumed care of the patient with ARIEL Breezy Alonso DO <Maia Alonso DO - Last Filed: 10/29/24 15:36> [place] Inquiry Pt receiving controlled substance: No Vital Signs Vital Signs: 10/29/24 13:09 10/29/24 13:42 10/29/24 14:00 Temperature 98.4 F Temperature Source Oral Pulse Rate 67 63 Pulse Rate [Left Radial] 72 Respiratory Rate 20 19 18 Blood Pressure 121/76 120/71 Blood Pressure [Right Arm] 137/75 Blood Pressure Mean [Right Arm] 95 Blood Pressure Source Blood Pressure Source [Right Arm] Blood Pressure Position [Right Arm] 02 Sat by Pulse Oximetry 88 L 100 100 Oxygen Delivery Method Room Air 10/29/24 14:30 10/29/24 15:50 10/29/24 16:04 Temperature 98.2 F 98.0 F Temperature Source Oral Oral Pulse Rate 67 78 Pulse Rate [Left Radial] 77 Respiratory Rate 14 22 20 Blood Pressure 128/78 128/75 Blood Pressure [Right Arm] 114/76 Blood Pressure Mean [Right Arm] 88 Blood Pressure Source Automatic Cuff Blood Pressure Source [Right Arm] Automatic Cuff Blood Pressure Position [Right Arm] Sitting 02 Sat by Pulse Oximetry 100 99 Oxygen Delivery Method Room Air Room Air 10/29/24 16:04 10/29/24 17:00 Temperature Temperature Source Pulse Rate Pulse Rate [Left Radial] Respiratory Rate Blood Pressure Blood Pressure [Right Arm] Blood Pressure Mean [Right Arm] Blood Pressure Source Blood Pressure Source [Right Arm] Blood Pressure Position [Right Arm] 02 Sat by Pulse Oximetry Oxygen Delivery Method Room Air Room Air Lab Data Labs: Lab Results 10/29/24 13:17: WBC 2.0 L, RBC 2.21 L, Hgb 8.2 L, Hct 22.7 L, MCV 102.7 H, MCH 37.1 H, MCHC 36.1 H, RDW 19.0 H, Plt Count 24 L*, Neut % (Auto) 51.9, Lymph % (Auto) 42.6, [place] % (Auto) 5.0, Eos % (Auto) 0.0 L, Baso % (Auto) 0.0 L, Neut # (Auto) 1.1 L, Lymph # (Auto) 0.9, [place] # (Auto) 0.1, Eos # (Auto) 0.0, Baso # (Auto) 0.0, Total Counted 100, Neutrophils % (Manual) 59, Lymphocytes % (Manual) 38, Monocytes % (Manual) 3, Platelet Estimate Marked decrease, Anisocytosis 1+, Ovalocytes 2+, PT 10.8, INR 0.96, APTT 31.8 H, Sodium 140, Potassium 3.9, Chloride 111 H, Carbon Dioxide 21 L, Anion Gap 11.9, BUN 11, Creatinine 1.20, Estimated Creat Clear 71, Estimated GFR 60, Est GFR ( Amer) 73, Glucose 106 H, Calcium 9.6, Phosphorus 2.9, Magnesium 2.2, Total Bilirubin 0.7, AST 36, ALT 30, Alkaline Phosphatase 65, Troponin I < 0.01, NT-Pro-B Natriuret Pep 864 H, Total Protein 7.9, Albumin 4.5, Globulin 3.4 H, Albumin/Globulin Ratio 1.3 Response Orders (Tests/Meds): ED MEDICATIONS Generic Name Dose Route Start Last Admin Trade Name Freq PRN Reason Stop Dose Admin Acetaminophen 650 mg 10/29/24 15:17 Acetaminophen 325mg Tab PO 11/28/24 15:16 Q4HP PRN Fever or Mild Pain (1-3) Aspirin 81 mg 10/30/24 09:00 Aspirin 81mg Chewable Tablet PO 11/29/24 08:59 DAILY LINDY Ondansetron HCl 4 mg 10/29/24 15:17 Ondansetron 4mg/2ml Vial IV 11/28/24 15:16 Q8HP PRN Nausea Discontinued Medications Generic Name Dose Route Start Last Admin Trade Name Freq PRN Reason Stop Dose Admin Furosemide 80 mg 10/29/24 15:17 10/29/24 15:49 Furosemide 100mg/10ml Vial IV 10/29/24 15:18 80 mg ONCE ONE Administration Iopamidol 70 ml 10/29/24 13:33 10/29/24 13:33 Iopamidol-370 (76%);100ml Bottle IV 10/29/24 13:34 70 ml ONCE ONE Administration Sodium Chloride 10 ml 10/29/24 13:33 10/29/24 13:33 Sodium Chloride 0.9% 10ml Syr (Rad Only) IV 10/29/24 13:34 10 ml ONCE ONE Administration Sodium Chloride 50 ml 10/29/24 13:33 10/29/24 13:33 0.9 % Sodium Chloride 50 Ml Vial IV 10/29/24 13:34 50 ml ONCE ONE Administration ORDERS Category Date Time Status CT angio chest PE protocol Stat Cat Scan 10/29/24 13:15 Completed Cardiology Consult [Consult to Cardiology] [CONS] Cons 10/29/24 15:23 Active Routine POCUS Point of Care (ER Only) Stat Exams 10/29/24 13:26 Completed BNP [NT Pro Brain Natriuretic Pep.] Stat Lab 10/29/24 13:17 Completed CBC Man Diff [Complete Blood Count Man Dif] Stat Lab 10/29/24 13:17 Completed CMP [Comprehensive Metabolic Panel] Stat Lab 10/29/24 13:17 Completed Complete Blood Count Auto Diff AMLAB Lab 10/30/24 06:00 Ordered Complete Blood Count Auto Diff AMLAB Lab 10/31/24 06:00 Ordered Complete Blood Count Auto Diff AMLAB Lab 11/01/24 06:00 Ordered Complete Blood Count Auto Diff AMLAB Lab 11/02/24 06:00 Ordered Complete Blood Count Auto Diff AMLAB Lab 11/03/24 06:00 Ordered Comprehensive Metabolic Panel AMLAB Lab 10/30/24 06:00 Ordered Comprehensive Metabolic Panel AMLAB Lab 10/31/24 06:00 Ordered Comprehensive Metabolic Panel AMLAB Lab 11/01/24 06:00 Ordered Comprehensive Metabolic Panel AMLAB Lab 11/02/24 06:00 Ordered Comprehensive Metabolic Panel AMLAB Lab 11/03/24 06:00 Ordered Lipid Panel AMLAB Lab 10/30/24 06:00 Ordered MAG [Magnesium] Stat Lab 10/29/24 13:17 Completed Magnesium AMLAB Lab 10/30/24 06:00 Ordered Magnesium AMLAB Lab 10/31/24 06:00 Ordered Magnesium AMLAB Lab 11/01/24 06:00 Ordered Magnesium AMLAB Lab 11/02/24 06:00 Ordered Magnesium AMLAB Lab 11/03/24 06:00 Ordered PHOS [Phosphorous] Stat Lab 10/29/24 13:17 Completed PT INR [Prothrombin Time INR] Stat Lab 10/29/24 13:17 Completed PTT [Activated Partial Thrombo Time] Stat Lab 10/29/24 13:17 Completed Trop I [Troponin I] Stat Lab 10/29/24 13:17 Completed Troponin I Q3H Lab 10/29/24 16:30 Completed Troponin I Q3H Lab 10/29/24 19:30 Completed CA echo doppler complete Routine Y 10/29/24 15:18 Completed MDM Narrative Medical Decision Narrative: DO Gavin: I was consulted by the ARIEL, and we discussed the complexity of the problems being addressed. I approved the treatment and management plan for this patient's care in the emergency department, thus performing a substantive portion of the medical decision making. Patient presents with significant dyspnea on exertion, which is new after starting chemotherapy for leukemia. He also has worsening pancytopenia, worsening anemia. On assessment, he is resting comfortably in no acute distress with reassuring vital signs, he is not requiring supplemental oxygen. He does not desaturate with walking, however I performed a bedside cardiac ultrasound which was concerning for a newly reduced EF. I reviewed prior records from and noted that the patient had a previous stress test 2 weeks ago that demonstrated a small area of irregularity of the left ventricle however he had an EF of 69%. Today, I give an estimation of his EF around 30 to 40%, however this was bedside for echocardiogram and not a formal echo. Ultimately, I feel patient would benefit from admission for further cardiac workup given his significant symptoms and newly reduced EF. Patient disposition pending at my departure at 1500. Dr. Das assumed care of the patient with ARIEL Breezy Alonso DO <Aston Das MD - Last Filed: 10/29/24 20:28> Vital Signs Vital Signs: 10/29/24 13:09 10/29/24 13:42 10/29/24 14:00 Temperature 98.4 F Temperature Source Oral Pulse Rate 67 63 Pulse Rate [Left Radial] 72 Respiratory Rate 20 19 18 Blood Pressure 121/76 120/71 Blood Pressure [Right Arm] 137/75 Blood Pressure Mean [Right Arm] 95 Blood Pressure Source Blood Pressure Source [Right Arm] Blood Pressure Position [Right Arm] 02 Sat by Pulse Oximetry 88 L 100 100 Oxygen Delivery Method Room Air 10/29/24 14:30 10/29/24 15:50 10/29/24 16:04 Temperature 98.2 F 98.0 F Temperature Source Oral Oral Pulse Rate 67 78 Pulse Rate [Left Radial] 77 Respiratory Rate 14 22 20 Blood Pressure 128/78 128/75 Blood Pressure [Right Arm] 114/76 Blood Pressure Mean [Right Arm] 88 Blood Pressure Source Automatic Cuff Blood Pressure Source [Right Arm] Automatic Cuff Blood Pressure Position [Right Arm] Sitting 02 Sat by Pulse Oximetry 100 99 Oxygen Delivery Method Room Air Room Air 10/29/24 16:04 10/29/24 17:00 Temperature Temperature Source Pulse Rate Pulse Rate [Left Radial] Respiratory Rate Blood Pressure Blood Pressure [Right Arm] Blood Pressure Mean [Right Arm] Blood Pressure Source Blood Pressure Source [Right Arm] Blood Pressure Position [Right Arm] 02 Sat by Pulse Oximetry Oxygen Delivery Method Room Air Room Air Lab Data Labs: Lab Results 10/29/24 13:17: WBC 2.0 L, RBC 2.21 L, Hgb 8.2 L, Hct 22.7 L, MCV 102.7 H, MCH 37.1 H, MCHC 36.1 H, RDW 19.0 H, Plt Count 24 L*, Neut % (Auto) 51.9, Lymph % (Auto) 42.6, [place] % (Auto) 5.0, Eos % (Auto) 0.0 L, Baso % (Auto) 0.0 L, Neut # (Auto) 1.1 L, Lymph # (Auto) 0.9, [place] # (Auto) 0.1, Eos # (Auto) 0.0, Baso # (Auto) 0.0, Total Counted 100, Neutrophils % (Manual) 59, Lymphocytes % (Manual) 38, Monocytes % (Manual) 3, Platelet Estimate Marked decrease, Anisocytosis 1+, Ovalocytes 2+, PT 10.8, INR 0.96, APTT 31.8 H, Sodium 140, Potassium 3.9, Chloride 111 H, Carbon Dioxide 21 L, Anion Gap 11.9, BUN 11, Creatinine 1.20, Estimated Creat Clear 71, Estimated GFR 60, Est GFR ( Amer) 73, Glucose 106 H, Calcium 9.6, Phosphorus 2.9, Magnesium 2.2, Total Bilirubin 0.7, AST 36, ALT 30, Alkaline Phosphatase 65, Troponin I < 0.01, NT-Pro-B Natriuret Pep 864 H, Total Protein 7.9, Albumin 4.5, Globulin 3.4 H, Albumin/Globulin Ratio 1.3 Response Orders (Tests/Meds): ED MEDICATIONS Generic Name Dose Route Start Last Admin Trade Name Freq PRN Reason Stop Dose Admin Acetaminophen 650 mg 10/29/24 15:17 Acetaminophen 325mg Tab PO 11/28/24 15:16 Q4HP PRN Fever or Mild Pain (1-3) Aspirin 81 mg 10/30/24 09:00 Aspirin 81mg Chewable Tablet PO 11/29/24 08:59 DAILY LINDY Ondansetron HCl 4 mg 10/29/24 15:17 Ondansetron 4mg/2ml Vial IV 11/28/24 15:16 Q8HP PRN Nausea Discontinued Medications Generic Name Dose Route Start Last Admin Trade Name Freq PRN Reason Stop Dose Admin Furosemide 80 mg 10/29/24 15:17 10/29/24 15:49 Furosemide 100mg/10ml Vial IV 10/29/24 15:18 80 mg ONCE ONE Administration Iopamidol 70 ml 10/29/24 13:33 10/29/24 13:33 Iopamidol-370 (76%);100ml Bottle IV 10/29/24 13:34 70 ml ONCE ONE Administration Sodium Chloride 10 ml 10/29/24 13:33 10/29/24 13:33 Sodium Chloride 0.9% 10ml Syr (Rad Only) IV 10/29/24 13:34 10 ml ONCE ONE Administration Sodium Chloride 50 ml 10/29/24 13:33 10/29/24 13:33 0.9 % Sodium Chloride 50 Ml Vial IV 10/29/24 13:34 50 ml ONCE ONE Administration ORDERS Category Date Time Status CT angio chest PE protocol Stat Cat Scan 10/29/24 13:15 Completed Cardiology Consult [Consult to Cardiology] [CONS] Cons 10/29/24 15:23 Active Routine POCUS Point of Care (ER Only) Stat Exams 10/29/24 13:26 Completed BNP [NT Pro Brain Natriuretic Pep.] Stat Lab 10/29/24 13:17 Completed CBC Man Diff [Complete Blood Count Man Dif] Stat Lab 10/29/24 13:17 Completed CMP [Comprehensive Metabolic Panel] Stat Lab 10/29/24 13:17 Completed Complete Blood Count Auto Diff AMLAB Lab 10/30/24 06:00 Ordered Complete Blood Count Auto Diff AMLAB Lab 10/31/24 06:00 Ordered Complete Blood Count Auto Diff AMLAB Lab 11/01/24 06:00 Ordered Complete Blood Count Auto Diff AMLAB Lab 11/02/24 06:00 Ordered Complete Blood Count Auto Diff AMLAB Lab 11/03/24 06:00 Ordered Comprehensive Metabolic Panel AMLAB Lab 10/30/24 06:00 Ordered Comprehensive Metabolic Panel [facility] 10/31/24 06:00 Ordered Comprehensive Metabolic Panel [facility] 11/01/24 06:00 Ordered Comprehensive Metabolic Panel [facility] 11/02/24 06:00 Ordered Comprehensive Metabolic Panel [facility] 11/03/24 06:00 Ordered Lipid Panel [facility] 10/30/24 06:00 Ordered MAG [Magnesium] Stat Lab 10/29/24 13:17 Completed Magnesium [facility] 10/30/24 06:00 Ordered Magnesium [facility] 10/31/24 06:00 Ordered Magnesium [facility] 11/01/24 06:00 Ordered Magnesium [facility] 11/02/24 06:00 Ordered Magnesium [facility] 11/03/24 06:00 Ordered PHOS [Phosphorous] Stat Lab 10/29/24 13:17 Completed PT INR [Prothrombin Time INR] Stat Lab 10/29/24 13:17 Completed PTT [Activated Partial Thrombo Time] Stat Lab 10/29/24 13:17 Completed Trop I [Troponin I] Stat Lab 10/29/24 13:17 Completed Troponin I Q3H Lab 10/29/24 16:30 Completed Troponin I Q3H Lab 10/29/24 19:30 Completed CA echo doppler complete Routine Y 10/29/24 15:18 Completed
[2024-10-29 13:26] LABS: MANUAL DIFFERENTIAL MANUAL DIFFERENTIAL (MANUAL DIFF)
[2024-10-29] MEDS: 0.9 % SODIUM CHLORIDE 50 ML VIAL IV (13:33)
[2024-10-29] MEDS: SODIUM CHLORIDE 0.9% 10ML SYR (RAD ONLY) 10 ML IV (13:33)
[2024-10-29] MEDS: IOPAMIDOL-370 (76%);100ML BOTTLE 70 ML IV (13:33)
[2024-10-29 13:35] LABS: Albumin Level 4.5 g/dl (3.5-5.0); Chloride 111 mmol/L (98-107); Potassium 3.9 mmoL/L (3.5-5.1); Sodium 140 mmol/L (136-145)
[2024-10-29 13:38] LABS: Alanine Aminotransferase 30 U/L (12-78); Albumin/Globulin Ratio 1.3 (1.1-1.8); Alkaline Phosphatase 65 U/L (38-126); Anion Gap 11.9 mEq/L (5-15); Aspartate Amino Transferase 36 U/L (17-59); Bilirubin,Total 0.7 mg/dl (0.2-1.3); Blood Urea Nitrogen 11 mg/dl (9-20); Calcium 9.6 mg/dl (8.4-10.2); Carbon Dioxide 21 mmol/L (22.0-30.0); Creatinine Clearance Estimated 71 mL/min (50-200); Estimated Glomerular Filt Rate 60 ml/min (>60); GFR (African American) 73 ML/MIN (>60); Globulin 3.4 g/dL (1.3-3.2); Glucose 106 mg/dl (74-100); Total Protein,Serum 7.9 g/dl (6.3-8.2)
[2024-10-29 13:41] LABS: Activated Partial Thrombo Time 31.8 seconds (22.8-30.6); INR 0.96 (0.9-1.1); Prothrombin Time 10.8 seconds (10.1-12.5)
[2024-10-29 13:48] LABS: Hematocrit 22.7 % (42.0-52.0); Hemoglobin 8.2 g/dL (14.1-18.0); Lymphocytes # 0.9 K/mm3 (0.7-4.5); Lymphocytes % 42.6 % (10-50); Mean Corpuscular HGB Conc 36.1 g/dL (31.8-35.4); Mean Corpuscular Hemoglobin 37.1 pg (27.0-31.2); Mean Corpuscular Volume 102.7 fl (80-94); Monocytes # 0.1 K/mm3 (0.1-1.0); Neutrophils # 1.1 K/mm3 (1.8-7.8); Neutrophils % 51.9 % (37.0-80.0); Red Blood Count 2.21 M/mm3 (4.60-6.20)
[2024-10-29 13:50] LABS: Platelet Count 24 K/mm3 (142-424)
[2024-10-29 14:03] LABS: Troponin I < 0.01 ng/ml (0.00-0.034)
[2024-10-29 14:17] LABS: Magnesium 2.2 mg/dl (1.6-2.3); Phosphorous 2.9 mg/dl (2.5-4.5)
[2024-10-29 14:26] LABS: NT Pro Brain Natriuretic Pep. 864 pg/mL (0-125)
[2024-10-29 14:28] LABS: Lymphocytes % 38 % (10-50); Monocytes % 3 % (2-9); Neutrophils % 59 % (42-76); Total Cells Counted 100
[2024-10-29 14:29] LABS: Anisocytosis 1+; Ovalocytes 2+; Platelet Estimate Marked Decrease
--- NOTE | 2024-10-29 15:17 | EXP.HP ---
History of Present Illness *Admission Date: 10/29/24 *Reason for visit:: Shortness of breath *History of present illness: Hugo Brown is a 69-year-old male with medical history significant for AML, myelodysplastic syndrome who presents with progressive dyspnea on exertion, especially in the last few days. Patient has unfortunately been diagnosed with AML over the past few weeks and has started chemotherapy, recently finished a 7-day daily course in the last week. Over the past few days, patient states his dyspnea on exertion has significantly worsened and thus came to the ED. Of note, patient has had an equivocal stress test in the last month that was already scheduled and was scheduled to see a foreman/pile driving and erection at in the next 2 weeks. On arrival, patient's vitals were stable. Saturating appropriately on room air. Bedside POCUS revealed LVEF 35 to 40%. Workup significant for WBC 2.0, hemoglobin 8.2, platelet 24, BNP 864, CTA chest without acute findings. ED provider discussed case with Dr. Sommers who recommended IV Lasix 80 mg and admission for further evaluation of suspected HFrEF. Case discussed with ED provider and decision was made to admit patient for the same. [facility] Disclaimer: The information contained in this section may have been updated after the patient was seen, as this information can be updated by other users. Medical History (Updated 10/29/24 @ 19:04 by Eliu Marlow MD) Leukemia Aneurysm Colon cancer screening Anemia Kidney stones COPD (chronic obstructive pulmonary disease) Hypertension Surgical History H/O shoulder surgery S/P right knee surgery History of cardiac cath Family History (Reviewed 10/29/24 @ 13:26 by Margot Tijerina ([facility]), [employer]ER/FIREMAN) Heart attack Social History (Updated 10/29/24 @ 17:19 by Martha Rodriguez RN) Smoking Status: Current every day smoker tobacco type: cigarettes packs per day: 1 alcohol intake: current alcohol intake frequency: 3 or more drinks per day substance use type: denies use current occupational status: employed Travel in the last 8 weeks: None household members: spouse housing: house Have you lived/traveled outside US in past 30 days?: No Contact w/someone who lives/traveled outside US past 30 days?: No Exposure to someone with infectious disease in past 14 days?: No Do you have a fever (greater than 100.4 F or 38 C)?: No Have you tested positive for COVID-19: No Exposed to someone with COVID-19 in past 14 days?: No Do you have a sore throat?: No Do you have a cough?: No Do you have any weakness?: No Do you have any diarrhea?: No Are you experiencing any unusual bleeding?: No Do you have any muscle aches/pain?: No Do you have any abdominal pain?: No Are you experiencing loss of taste or smell?: No Other Medical History Have you received the Flu Vaccine for this season: No Have you received the Pneumonia Vaccine: No Meds Home Medications and Allergies Home Medications ?Medication ?Instructions ?Recorded ?Confirmed ?Type amlodipine 2.5 mg tablet 2.5 mg PO DAILY 03/21/24 10/29/24 History bisoprolol fumarate 5 mg tablet 5 mg PO DAILY 03/21/24 10/29/24 History aspirin 81 mg chewable tablet 81 mg PO DAILY 06/12/24 10/29/24 History (Children's Aspirin) atorvastatin 80 mg tablet (Lipitor) 80 mg PO DAILY 06/12/24 10/29/24 History tadalafil 5 mg tablet 5 mg PO DAILY PRN sexual activity 06/12/24 10/29/24 Rx #30 tabs nitroglycerin 0.4 mg sublingual 0.4 mg buccal Q5MINP PRN angina 09/16/24 10/29/24 History tablet cetirizine 10 mg capsule (Allergy 10 mg PO DAILY 09/19/24 10/29/24 History Relief (cetirizine)) cholecalciferol (vitamin D3) 50 50 mcg PO DAILY 09/19/24 10/29/24 History mcg (2,000 unit) capsule (Vitamin D3) piwlffxqvtiv-xbxivxsq-jzdquu tablet 1 tab PO DAILY 09/19/24 10/29/24 History omega-3 fatty acids 0 mg PO DAILY 09/19/24 10/29/24 History isosorbide mononitrate 30 mg 30 mg PO DAILY 10/29/24 10/29/24 History tablet,extended release 24 hr rosuvastatin 40 mg tablet 40 mg PO DAILY 10/29/24 10/29/24 History New Prescriptions to Start Prescriptions: Allergies Allergy/AdvReac Type Severity Reaction Status Date / Time No Known Allergies Allergy Verified 10/17/24 13:38 Exam Data for Last 24 hours Vital signs and Labs for Last 24 Hours: Temp Pulse Resp BP Pulse Ox O2 Del Method 98.4 F 72 20 137/75 88 L Room Air 10/29/24 13:10/29/24 13:10/29/24 13:10/29/24 13:10/29/24 13:10/29/24 13:09 Laboratory Results - last 24 hr 10/29/24 13:17: WBC 2.0 L, RBC 2.21 L, Hgb 8.2 L, Hct 22.7 L, MCV 102.7 H, MCH 37.1 H, MCHC 36.1 H, RDW 19.0 H, Plt Count 24 L*, Neut % (Auto) 51.9, Lymph % (Auto) 42.6, [place] % (Auto) 5.0, Eos % (Auto) 0.0 L, Baso % (Auto) 0.0 L, Neut # (Auto) 1.1 L, Lymph # (Auto) 0.9, [place] # (Auto) 0.1, Eos # (Auto) 0.0, Baso # (Auto) 0.0, Total Counted 100, Neutrophils % (Manual) 59, Lymphocytes % (Manual) 38, Monocytes % (Manual) 3, Platelet Estimate Marked decrease, Anisocytosis 1+, Ovalocytes 2+, PT 10.8, INR 0.96, APTT 31.8 H, Sodium 140, Potassium 3.9, Chloride 111 H, Carbon Dioxide 21 L, Anion Gap 11.9, BUN 11, Creatinine 1.20, Estimated Creat Clear 71, Estimated GFR 60, Est GFR ( Amer) 73, Glucose 106 H, Calcium 9.6, Phosphorus 2.9, Magnesium 2.2, Total Bilirubin 0.7, AST 36, ALT 30, Alkaline Phosphatase 65, Troponin I < 0.01, NT-Pro-B Natriuret Pep 864 H, Total Protein 7.9, Albumin 4.5, Globulin 3.4 H, Albumin/Globulin Ratio 1.3 I & O for Last 24 hours: Intake & Output 10/26/24 10/27/24 10/28/24 10/29/24 23:59 23:59 23:59 23:59 Weight 86.183 kg Constitutional Constitutional: no acute distress *Routine HEENT Exam Head: Present normocephalic Eye: Present EOMI and PERRL ENT: Present mucous membranes moist *Routine Neck Exam Neck: Present supple; Absent lymphadenopathy *Routine Respiratory Exam Respiratory: Present CTA bilaterally *Routine Cardiovascular Exam Cardiovascular: Present RRR *Routine Abdominal Exam Abdominal: Present soft and normoactive bowel sounds; Absent tenderness *Routine Rectal Exam Rectal:: deferred *Routine Genitalia Exam Genitalia:: deferred *Routine Extremities Exam Extremities: Absent cyanosis, clubbing or edema *Routine Skin Exam Skin: Present warm; Absent rash *Routine Neurological Exam Neurological: Present alert and oriented X3 Assessment and Plan *Assessment and plan (1) Chemotherapy induced cardiomyopathy: Status: Acute Category: Medical Code(s): I42.7 - Cardiomyopathy due to drug and external agent; T45.1X5A - Adverse effect of antineoplastic and immunosuppressive drugs, initial encounter Plan Hugo Brown is a 69-year-old male with medical history significant for AML, myelodysplastic syndrome who presents with progressive dyspnea on exertion, especially in the last few days. Patient has unfortunately been diagnosed with AML over the past few weeks and has started chemotherapy, recently finished a 7-day daily course in the last week. Over the past few days, patient states his dyspnea on exertion has significantly worsened and thus came to the ED. Of note, patient has had an equivocal stress test in the last month that was already scheduled and was scheduled to see a foreman/pile driving and erection at in the next 2 weeks. On arrival, patient's vitals were stable. Saturating appropriately on room air. Bedside POCUS revealed LVEF 35 to 40%. Workup significant for WBC 2.0, hemoglobin 8.2, platelet 24, BNP 864, CTA chest without acute findings. ED provider discussed case with Dr. Sommers who recommended IV Lasix 80 mg and admission for further evaluation of suspected HFrEF. Case discussed with ED provider and decision was made to admit patient for the same. #Suspected chemotherapy-induced cardiomyopathy #Dyspnea on exertion ? Progressive dyspnea on exertion, ED POCUS revealing LVEF 35 to 40%. Dr. Sommers recommended IV Lasix 80 mg, admission for further evaluation. ? Of note, patient has had dyspnea on exertion even prior to chemotherapy but has significantly worsened over the past few days. ? BNP 864, but no signs of volume overload. Will hold on further diuretics. ? Will obtain records from , including oncology records. ? Follow-up ECHO. ? Follow-up A1c, LDL, TSH, iron panel, B12, folate. ? Cardiology consulted, pending further recommendations. #AML #Myelodysplastic syndrome #Pancytopenia ? Pancytopenic with WBC 2.0, hemoglobin 8.2, platelet 24. No signs of bleeding. ? Transfuse pRBC if hemoglobin < 7. ? Transfuse platelets if platelets < 20 or signs of bleeding. ? Otherwise supportive care, continue follow-ups with Dr. James and oncology. #Hypertension ? Continue home medications once reconciled. Full code DVT prophylaxis: Hold AC due to thrombocytopenia
--- NOTE | 2024-10-29 15:18 | CA_ITS ---
APPROVED REPORT EXAM: Comprehensive 2D, Doppler, and color-flow Echocardiogram [place] Finisher: ALYX Queen, RVS Ht: 5 ft 7 in Wt: 190lbs BSA: 1.98 BP: 137/75 mmHg Indications: HF, Chemotherapy-Leukemia, Anemia, COPD, Smoker, ETOH use, HTN 2D Dimensions Left Atrium 3.98 cm M: 3.0 - 4.0 LA Volume 76.40 mL LA Volume Index 38.640015 mL/m2 (M/F) 16-34 M-Mode Dimensions RVDd 2.98 cm (0.9-2.6) LA Diam 4.64 cm (1.9-4.0) LVDd 5.03 cm (3.5-5.7) LVDs 3.02 cm (3.5-5.7) IVSd 0.93 cm (0.6-1.1) PWd 1.13 cm (0.6-1.1) EF (Teich) 70.30% EPSs 0.48 cm FS 40.00% EDV (Teich) 119.90 mL TAPSE 2.13 (<1.7) ESV (Teich) 35.60 mL LV Diastology E Decel Time 233 (160-240 msec) E/A Ratio 1.21 MED A' 10.30 cm/s LAT A' 9.60 cm/s Aortic Valve RANDI Index 1.16 cm2/m2 AoV Peak Daniel. 185.0 (50-130 cm/s) AI PHT 419.00 ms AO Peak GR. 13.80 mmHg AO Mean GR. 6.90 (<5 mmHg) AO VTI 39.6 (18-25 cm) RANDI (VTI) 2.35 (2.5-4.5 cm2) Mitral Valve MV A Velocity 143.0 (40-130 cm/s) E/A Ratio 1.21 Pulmonary Valve PA End VMAX 197.0 cm/s Tricuspid Valve TR P. Velocity 265.00 cm/s RAP Estimate 10.00 mmHg RVSP 38.00 mmHg Left Ventricle The left ventricle is normal size. The left ventricular systolic function is normal. The left ventricular ejection fraction is within the normal range. There is increased LV wall thickness. There is normal LV segmental wall motion. The left ventricular diastolic function is normal. LVEF is 55%. Right Ventricle The right ventricle is normal size. The right ventricular systolic function is normal. Atria The left atrium is mildly dilated. Right atrium is mildly dilated. There is no Doppler evidence of interatrial shunt. Aortic Valve Aortic valve is mildly thickened. There is no aortic valvular stenosis. Trace aortic regurgitation. Mitral Valve The mitral valve is normal in structure. No evidence of mitral valve stenosis. Mild to moderate mitral regurgitation. Tricuspid Valve Tricuspid valve is grossly normal in structure and function. Mild tricuspid regurgitation. RVSP is normal. Pulmonic Valve The pulmonary valve is normal in structure. Trace pulmonic regurgitation. Great Vessels The aortic root is normal in size. IVC is normal in size and collapses >50% with inspiration. Pericardium There is no pericardial effusion. Other Information Study Quality: Fair Conclusion Normal biventricular systolic function. Mild biatrial dilation. Mild to moderate MR. Mild TR. Electronically signed by : Norma Guzman MD 10/30/2024 00:33:18
[2024-10-29] MEDS: FUROSEMIDE 100MG/10ML VIAL 80 MG IV (15:49)
--- NOTE | 2024-10-29 16:13 | PC.NURSE ---
called report to lillian gomez on 2nd floor
--- NOTE | 2024-10-29 16:47 | PC.NURSE ---
arrived from ED by w/c
[2024-10-29 17:14] LABS: Troponin I < 0.01 ng/ml (0.00-0.034)
--- NOTE | 2024-10-29 17:20 | PC.NURSE ---
DAughter will bring home medications in tonight.
--- NOTE | 2024-10-29 18:15 | PC.NURSE ---
Pt. refused 02-2L va, sats in the 90's on RA.
[2024-10-29 20:12] LABS: Troponin I < 0.01 ng/ml (0.00-0.034)
--- NOTE | 2024-10-29 20:35 | PC.NURSE ---
tech reported that patient took home meds in room around 2024 - this RN went to room to see what the patient took, patient reported taking bisoprolol 5mg and crestor. patient was hypotensive 90's SBP. Home meds were labeled and put in flight steward office for pharm to label in the AM.
[2024-10-30] VITALS (10 sets, daily range): BP systolic 88–104; BP diastolic 48–62; PULSE 60–72; RESP 16–18; TEMP 36.5–36.9; O2SAT 95–99; BMI 32.7
[2024-10-30 06:18] LABS: Albumin Level 3.9 g/dl (3.5-5.0); Chloride 109 mmol/L (98-107); Potassium 3.7 mmoL/L (3.5-5.1); Sodium 140 mmol/L (136-145)
[2024-10-30 06:19] LABS: Basophils % 0.7 % (0.1-2.0); Hemoglobin 7.6 g/dL (14.1-18.0); Lymphocytes # 0.6 K/mm3 (0.7-4.5); Lymphocytes % 43.2 % (10-50); Mean Corpuscular HGB Conc 36.7 g/dL (31.8-35.4); Mean Corpuscular Hemoglobin 37.3 pg (27.0-31.2); Mean Corpuscular Volume 101.5 fl (80-94); Monocytes # 0.1 K/mm3 (0.1-1.0); Monocytes % 5.4 % (1.7-9.3); Neutrophils # 0.7 K/mm3 (1.8-7.8); Nucleated Red Blood Cells # 0 10^3/uL; Nucleated Red Blood Cells % 0 %; Red Blood Count 2.04 M/mm3 (4.60-6.20); Red Cell Distribution Width 18.7 % (11.5-17.5); Red Cell Distribution Width-SD 70.4 fL; White Blood Count 1.5 K/mm3 (4.8-10.8)
[2024-10-30 06:20] LABS: Alanine Aminotransferase 26 U/L (12-78); Anion Gap 12.7 mEq/L (5-15); Aspartate Amino Transferase 31 U/L (17-59); Blood Urea Nitrogen 12 mg/dl (9-20); Carbon Dioxide 22 mmol/L (22.0-30.0); Creatinine Clearance Estimated 78 mL/min (50-200); Estimated Glomerular Filt Rate 60 ml/min (>60); GFR (African American) 73 ML/MIN (>60)
[2024-10-30 06:21] LABS: Albumin/Globulin Ratio 1.3 (1.1-1.8); Alkaline Phosphatase 56 U/L (38-126); Bilirubin,Total 0.6 mg/dl (0.2-1.3); Calcium 9.4 mg/dl (8.4-10.2); Chol/HDL Ratio 1.8 (1-3.5); Cholesterol 71 mg/dl (140-200); Globulin 3.1 g/dL (1.3-3.2); Glucose 101 mg/dl (74-100); HDL Cholesterol 40 mg/dl (40-60); Magnesium 2.2 mg/dl (1.6-2.3); Triglycerides 74 mg/dl (30-150); VLDL Cholesterol 15 mg/dL (0-40)
--- NOTE | 2024-10-30 06:25 | PC.NURSE ---
patient has reported SOA T/O shift with activity and maintains sats >90% but refuses to put oxygen on.
[2024-10-30 06:27] LABS: Hematocrit 20.7 % (42.0-52.0); Platelet Count 17 K/mm3 (142-424)
--- NOTE | 2024-10-30 06:29 | PC.NURSE ---
critical labs reported to hospitalist
[2024-10-30 06:45] LABS: Direct LDL Cholesterol < 30.00 mg/dL (100-129)
[2024-10-30 06:52] LABS: Thyroid Stimulating Hormone 0.53 uIU/mL (0.465-4.68)
[2024-10-30 07:31] LABS: Iron 82 ug/dL (49-181)
[2024-10-30 07:40] LABS: Total Iron Binding Capacity 285 ug/dL (261-462)
[2024-10-30 07:49] LABS: Free T4 (Free Thyroxine) 1.09 ng/dl (0.78-2.19)
[2024-10-30 08:07] LABS: Ferritin 444 ng/ml (17.9-464)
[2024-10-30 08:38] LABS: Procalcitonin 0.093 ng/mL (0.0-2.0)
--- NOTE | 2024-10-30 08:58 | HMH.PHAINT1 ---
Pharmacy Intervention Comments: MEDICATION RECONCILIATION COMPLETED ON PATIENT USING EXTERNAL FILL HISTORY FROM PHARMACY. -SANDRA ALVARAOD, ANGELAD
[2024-10-30 09:11] LABS: Vitamin B12 652 pg/mL (239-931)
[2024-10-30] MEDS: ASPIRIN 81MG CHEWABLE TABLET 81 MG PO (10:19)
--- NOTE | 2024-10-30 10:21 | P.CONCA_ITS ---
History of Present Illness History of Present Illness Consult date: 10/30/24 Requesting physician: Eliu Marlow Chief complaint: SOA History of present illness: Hugo Brown is a 69-year-old male with medical history significant for AML, my elodysplastic syndrome who presents with progressive dyspnea on exertion, especially in the last few days. Patient has unfortunately been diagnosed with AML over the past few weeks and has started chemotherapy, recently finished a 7- day daily course in the last week. Over the past few days, patient states his dyspnea on exertion has significantly worsened and thus came to the ED. Of note, patient has had an equivocal stress test in the last month that was already scheduled and was scheduled to see a software engineer mobile at in the next 2 weeks. Upon arrival to ED EKG showed NSR rate of. 71 without ischemic changes noted. Workup significant for WBC 2.0, hemoglobin 8.2, platelet 24, BNP 864, CTA chest without acute findings. Serial troponins negative patient was given IV Lasix 80 mg x 1 in emergency department and admitted for further evaluation for possible HFrEF. [facility] Disclaimer: The information contained in this section may have been updated after the patient was seen, as this information can be updated by other users. Medical History (Updated 10/30/24 @ 10:28 by Chen Garber [employer]ADU[employer]ACHING [employer]ATE) Leukemia Aneurysm Colon cancer screening Anemia Kidney stones COPD (chronic obstructive pulmonary disease) Hypertension Surgical History H/O shoulder surgery S/P right knee surgery History of cardiac cath Family History , GRADUATE TEACHING ASSOCIATE) Heart attack Social History (Updated 10/29/24 @ 17:19 by Martha Rodriguez, RN) Smoking Status: Current every day smoker tobacco type: cigarettes packs per day: 1 alcohol intake: current alcohol intake frequency: 3 or more drinks per day substance use type: denies use current occupational status: employed Travel in the last 8 weeks: None household members: spouse housing: house Have you lived/traveled outside US in past 30 days?: No Contact w/someone who lives/traveled outside US past 30 days?: No Exposure to someone with infectious disease in past 14 days?: No Do you have a fever (greater than 100.4 F or 38 C)?: No Have you tested positive for COVID-19: No Exposed to someone with COVID-19 in past 14 days?: No Do you have a sore throat?: No Do you have a cough?: No Do you have any weakness?: No Do you have any diarrhea?: No Are you experiencing any unusual bleeding?: No Do you have any muscle aches/pain?: No Do you have any abdominal pain?: No Are you experiencing loss of taste or smell?: No Review of Systems Review of Systems Review of systems:: pertinent systems reviewed and negative unless documented below *Cardiovascular Cardiovascular: Denies chest pain and Reports dyspnea *Respiratory Respiratory: Reports dyspnea Exam Data for Last 24 hours Vital signs and Labs for Last 24 Hours: Temp Pulse Resp BP Pulse Ox O2 Del Method 98.4 F 71 18 97/50 L 95 Room Air 10/30/24 08:00 10/30/24 08:00 10/30/24 08:00 10/30/24 08:00 10/30/24 08:00 10/30/24 09:45 Laboratory Results - last 24 hr 10/29/24 13:17: WBC 2.0 L, RBC 2.21 L, Hgb 8.2 L, Hct 22.7 L, MCV 102.7 H, MCH 37.1 H, MCHC 36.1 H, RDW 19.0 H, Plt Count 24 L*, Neut % (Auto) 51.9, Lymph % (Auto) 42.6, [place] % (Auto) 5.0, Eos % (Auto) 0.0 L, Baso % (Auto) 0.0 L, Neut # (Auto) 1.1 L, Lymph # (Auto) 0.9, [place] # (Auto) 0.1, Eos # (Auto) 0.0, Baso # (Auto) 0.0, Total Counted 100, Neutrophils % (Manual) 59, Lymphocytes % (Manual) 38, Monocytes % (Manual) 3, Platelet Estimate Marked decrease, Anisocytosis 1+, Ovalocytes 2+, PT 10.8, INR 0.96, APTT 31.8 H, Sodium 140, Potassium 3.9, Chloride 111 H, Carbon Dioxide 21 L, Anion Gap 11.9, BUN 11, Creatinine 1.20, Estimated Creat Clear 71, Estimated GFR 60, Est GFR ( Amer) 73, Glucose 106 H, Calcium 9.6, Phosphorus 2.9, Magnesium 2.2, Total Bilirubin 0.7, AST 36, ALT 30, Alkaline Phosphatase 65, Troponin I < 0.01, NT-Pro-B Natriuret Pep 864 H , Total Protein 7.9, Albumin 4.5, Globulin 3.4 H, Albumin/Globulin Ratio 1.3 10/29/24 16:30: Troponin I < 0.01 10/29/24 19:30: Troponin I < 0.01 10/30/24 05:27: WBC 1.5 L*, RBC 2.04 L, Hgb 7.6 L, Hct 20.7 L*, MCV 101.5 H, MCH 37.3 H, MCHC 36.7 H, RDW 18.7 H, Plt Count 17 L* D, MPV TNP, Neut % (Auto) 50.0, Lymph % (Auto) 43.2, [place] % (Auto) 5.4, Eos % (Auto) 0.0 L, Baso % (Auto) 0.7, Neut # (Auto) 0.7 L*, Lymph # (Auto) 0.6 L, [place] # (Auto) 0.1, Eos # (Auto) 0.0, Baso # (Auto) 0.0, Sodium 140, Potassium 3.7, Chloride 109 H, Carbon Dioxide 22, Anion Gap 12.7, BUN 12, Creatinine 1.20, Estimated Creat Clear 78, Estimated GFR 60, Est GFR ( Amer) 73, Glucose 101 H, Calcium 9.4, Magnesium 2.2, Iron 82, TIBC 285, Iron Saturation 28.41147, Ferritin 444 D, Total Bilirubin 0.6, AST 31, ALT 26, Alkaline Phosphatase 56, Total Protein 7.0, Albumin 3.9 D, Globulin 3.1, Albumin/Globulin Ratio 1.3, Triglycerides 74, Cholesterol 71 L, LDL Cholesterol Direct < 30.00 L, VLDL Cholesterol 15, HDL Cholesterol 40, Cholesterol/HDL Ratio 1.8, Vitamin B12 652, Folate 15.90, Procalcitonin 0.093, TSH 0.53, Free T4 1.09, Blood Type Confirm O Negative 10/30/24 08:21: Blood Type O Negative I & O for Last 24 hours: Intake & Output 10/27/24 10/28/24 10/29/24 10/30/24 23:59 23:59 23:59 23:59 Intake Total 270 / 390 360 / 360 Output Total 0 / 0 Balance 270 / 390 360 / 360 Weight 194 lb 6.4 oz 208 lb 9.6 oz Constitutional Constitutional: no acute distress *Routine Respiratory Exam Respiratory: Present CTA bilaterally and symmetric chest movement *Routine Cardiovascular Exam Cardiovascular: Present RRR, Normal S1 and Normal S2 *Routine Abdominal Exam Abdominal: Present soft and normoactive bowel sounds; Absent tenderness *Routine Extremities Exam Extremities: Present full ROM and normal capillary refill; Absent edema *Routine Skin Exam Skin: Present intact, dry and warm Detailed Neck Exam: Thyroids Thyroid: Absent bruit Meds Home Medications and Allergies Home Medications ?Medication ?Instructions ?Recorded ?Confirmed ?Type amlodipine 2.5 mg tablet 2.5 mg PO DAILY 03/21/24 10/29/24 History bisoprolol fumarate 5 mg tablet 5 mg PO DAILY 03/21/24 10/29/24 History aspirin 81 mg chewable tablet 81 mg PO DAILY 06/12/24 10/29/24 History (Children's Aspirin) nitroglycerin 0.4 mg sublingual 0.4 mg buccal Q5MINP PRN Chest Pain 09/16/24 10/29/24 History tablet cetirizine 10 mg capsule (Allergy 10 mg PO DAILY 09/19/24 10/29/24 History Relief (cetirizine)) cholecalciferol (vitamin D3) 50 50 mcg PO DAILY 09/19/24 10/29/24 History mcg (2,000 unit) capsule (Vitamin D3) ppiagagtswrj-fiookala-bqdqfr tablet 1 tab PO DAILY 09/19/24 10/29/24 History isosorbide mononitrate 30 mg 30 mg PO DAILY 10/29/24 10/29/24 History tablet,extended release 24 hr rosuvastatin 40 mg tablet 40 mg PO DAILY 10/29/24 10/29/24 History acyclovir 800 mg tablet 800 mg PO BID 10/30/24 10/30/24 History levofloxacin 500 mg tablet 500 mg PO DAILY 10/30/24 10/30/24 History posaconazole 100 mg tablet,delayed 300 mg PO DAILY 10/30/24 10/30/24 History release tadalafil 5 mg tablet 5 mg PO NEEDED PRN sexual 10/30/24 10/30/24 History activity venetoclax 10 mg tablet (Venclexta) 0 mg PO DIRECTED 10/30/24 10/30/24 History venetoclax 50 mg tablet (Venclexta) 0 mg PO DIRECTED 10/30/24 10/30/24 History New Prescriptions to Start Prescriptions: Allergies Allergy/AdvReac Type Severity Reaction Status Date / Time No Known Allergies Allergy Verified 10/17/24 13:38 Assessment and Plan *Assessment and plan (1) Myelodysplasia (myelodysplastic syndrome): Status: Acute Category: Medical Code(s): D46.9 - Myelodysplastic syndrome, unspecified (2) Pancytopenia: Status: Acute Category: Medical Code(s): D61.818 - Other pancytopenia (3) Dyspnea on exertion: Status: Acute Category: Medical Code(s): R06.09 - Other forms of dyspnea Plan Dyspnea on exertion Serial troponins negative EKG without acute ischemic changes Reports recent abnormal stress test at . Is scheduled to see cardio- oncology this coming sunday. Denies orthopnea or lower extremity edema BNP 864 on admission CTA chest shows no PE, no significant pleural effusions or pericardial e ffusions present Anemia present Echo 10/29/2024: Normal biventricular systolic function, mild biatrial dilation, mild to moderate MR mild TR Myelodysplastic syndrome Pancytopenia AML WBC 1.5, hemoglobin 7.6, platelet count 17 Defer to primary service Hypertension Continue home meds CV summary 10/30/2024: Echocardiogram reveals a normal ejection fraction with mild to moderate TR. Patient has no signs of volume overload at this time. Serial troponins remain normal. Is scheduled to see cardio oncology at this coming Sunday regarding an abnormal stress test. Patient is CV stable for discharge home. Please have patient follow-up with either cardiology as previously scheduled or with our cardiology clinic in the next week for reevaluation.
[2024-10-30] MEDS: levoFLOXacin 500MG TAB 500 MG PO (12:11)
[2024-10-30] MEDS: ACYCLOVIR 400MG TAB 800 MG PO (12:11)
--- NOTE | 2024-10-30 12:45 | EXP.DC.SUM ---
General Admission date:: 10/29/24 HPI HPI HPI: Hugo Brown is a 69-year-old male with medical history significant for AML, myelodysplastic syndrome who presents with progressive dyspnea on exertion, especially in the last few days. Patient has unfortunately been diagnosed with AML over the past few weeks and has started chemotherapy, recently finished a 7-day daily course in the last week. Over the past few days, patient states his dyspnea on exertion has significantly worsened and thus came to the ED. Of note, patient has had an equivocal stress test in the last month that was already scheduled and was scheduled to see a chief commercial officer at in the next 2 weeks. On arrival, patient's vitals were stable. Saturating appropriately on room air. Bedside POCUS revealed LVEF 35 to 40%. Workup significant for WBC 2.0, hemoglobin 8.2, platelet 24, BNP 864, CTA chest without acute findings. ED provider discussed case with Dr. Sommers who recommended IV Lasix 80 mg and admission for further evaluation of suspected HFrEF. Case discussed with ED provider and decision was made to admit patient for the same. Hospital Course Hospital Course Hospital Course: Hugo Brown is a 69-year-old male with medical history significant for AML, myelodysplastic syndrome who presents with progressive dyspnea on exertion, especially in the last few days. Patient has unfortunately been diagnosed with AML over the past few weeks and has started chemotherapy, recently finished a 7-day daily course in the last week. Over the past few days, patient states his dyspnea on exertion has significantly worsened and thus came to the ED. Of note, patient has had an equivocal stress test in the last month that was already scheduled and was scheduled to see a chief commercial officer at in the next 2 weeks. On arrival, patient's vitals were stable. Saturating appropriately on room air. Bedside POCUS revealed LVEF 35 to 40%. Workup significant for WBC 2.0, hemoglobin 8.2, platelet 24, BNP 864, CTA chest without acute findings. ED provider discussed case with Dr. Sommers who recommended IV Lasix 80 mg and admission for further evaluation of suspected HFrEF. Case discussed with ED provider and decision was made to admit patient for the same. #Dyspnea on exertion, exercise intolerance #CAD #Hypertension ? Progressive dyspnea on exertion, ED POCUS initially revealed LVEF 35 to 40%. Dr. 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 ? Of note, patient has had dyspnea on exertion even prior to chemotherapy but has significantly worsened over the past few days. He had a positive stress test and was due to see oncology chief commercial officer at next week 11/05/24. ? BNP 864, but no signs of volume overload. Did not further diurese. ? ECHO ultimately revealed normal biventricular function, mild to moderate mitral regurgitation, mild biatrial dilation. ? Cardiology consulted, considered [facility] for dyspnea on exertion/exercise intolerance but after joint discussion we will believe patient will be best suited to be further evaluated by chief commercial officer at due to severe thrombocytopenia and high risk of bleeding/complications. ? CCTA in February 2019 revealed extensive calcific plaque burden with very high cardiovascular disease risk. ? Follow-up A1c 4.9%, LDL less than 30, TSH normal, iron panel normal, B12 normal, folate normal. ? Pressures were soft after diuresis, given IV fluid bolus with improvement in pressures. Advised to hold bisoprolol, amlodipine until evaluation by cardiology. #AML #Myelodysplastic syndrome #Pancytopenia ? Pancytopenic with WBC 1.5, hemoglobin 7.6, platelet 17. No signs of bleeding. ? Transfuse with 1 unit platelets as platelets were 17. ? Otherwise supportive care, continue follow-ups with Dr. James and oncology. #Suspected contact dermatitis ? Patient has developed erythema in medial aspect of buttocks. Patient denies any new exposure. ? Discharged with hydrocortisone 2.5% cream. Total time spent on discharge: 35 minutes on chart review, counseling, documentation, and direct care with patient. Exam Data for Last 24 hours Vital signs and Labs for Last 24 Hours: Temp Pulse Resp BP Pulse Ox O2 Del Method 98.4 F 71 18 97/50 L 95 Room Air 10/30/24 08:00 10/30/24 08:00 10/30/24 08:00 10/30/24 08:00 10/30/24 08:00 10/30/24 12:19 Laboratory Results - last 24 hr 10/29/24 13:17: WBC 2.0 L, RBC 2.21 L, Hgb 8.2 L, Hct 22.7 L, MCV 102.7 H, MCH 37.1 H, MCHC 36.1 H, RDW 19.0 H, Plt Count 24 L*, Neut % (Auto) 51.9, Lymph % (Auto) 42.6, [place] % (Auto) 5.0, Eos % (Auto) 0.0 L, Baso % (Auto) 0.0 L, Neut # (Auto) 1.1 L, Lymph # (Auto) 0.9, [place] # (Auto) 0.1, Eos # (Auto) 0.0, Baso # (Auto) 0.0, Total Counted 100, Neutrophils % (Manual) 59, Lymphocytes % (Manual) 38, Monocytes % (Manual) 3, Platelet Estimate Marked decrease, Anisocytosis 1+, Ovalocytes 2+, PT 10.8, INR 0.96, APTT 31.8 H, Sodium 140, Potassium 3.9, Chloride 111 H, Carbon Dioxide 21 L, Anion Gap 11.9, BUN 11, Creatinine 1.20, Estimated Creat Clear 71, Estimated GFR 60, Est GFR ( Amer) 73, Glucose 106 H, Calcium 9.6, Phosphorus 2.9, Magnesium 2.2, Total Bilirubin 0.7, AST 36, ALT 30, Alkaline Phosphatase 65, Troponin I < 0.01, NT-Pro-B Natriuret Pep 864 H, Total Protein 7.9, Albumin 4.5, Globulin 3.4 H, Albumin/Globulin Ratio 1.3 10/29/24 16:30: Troponin I < 0.01 10/29/24 19:30: Troponin I < 0.01 10/30/24 05:27: WBC 1.5 L*, RBC 2.04 L, Hgb 7.6 L, Hct 20.7 L*, MCV 101.5 H, MCH 37.3 H, MCHC 36.7 H, RDW 18.7 H, Plt Count 17 L* D, MPV TNP, Neut % (Auto) 50.0, Lymph % (Auto) 43.2, [place] % (Auto) 5.4, Eos % (Auto) 0.0 L, Baso % (Auto) 0.7, Neut # (Auto) 0.7 L*, Lymph # (Auto) 0.6 L, [place] # (Auto) 0.1, Eos # (Auto) 0.0, Baso # (Auto) 0.0, Sodium 140, Potassium 3.7, Chloride 109 H, Carbon Dioxide 22, Anion Gap 12.7, BUN 12, Creatinine 1.20, Estimated Creat Clear 78, Estimated GFR 60, Est GFR ( Amer) 73, Glucose 101 H, Calcium 9.4, Magnesium 2.2, Iron 82, TIBC 285, Iron Saturation 28.51668, Ferritin 444 D, Total Bilirubin 0.6, AST 31, ALT 26, Alkaline Phosphatase 56, Total Protein 7.0, Albumin 3.9 D, Globulin 3.1, Albumin/Globulin Ratio 1.3, Triglycerides 74, Cholesterol 71 L, LDL Cholesterol Direct < 30.00 L, VLDL Cholesterol 15, HDL Cholesterol 40, Cholesterol/HDL Ratio 1.8, Vitamin B12 652, Folate 15.90, Procalcitonin 0.093, TSH 0.53, Free T4 1.09, Blood Type Confirm O Negative 10/30/24 08:21: Blood Type O Negative Temp Pulse Resp BP Pulse Ox O2 Del Method 98.4 F 71 18 97/50 L 95 Room Air 10/30/24 08:00 10/30/24 08:00 10/30/24 08:00 10/30/24 08:00 10/30/24 08:00 10/30/24 09:45 Laboratory Results - last 24 hr 10/29/24 13:17: WBC 2.0 L, RBC 2.21 L, Hgb 8.2 L, Hct 22.7 L, MCV 102.7 H, MCH 37.1 H, MCHC 36.1 H, RDW 19.0 H, Plt Count 24 L*, Neut % (Auto) 51.9, Lymph % (Auto) 42.6, [place] % (Auto) 5.0, Eos % (Auto) 0.0 L, Baso % (Auto) 0.0 L, Neut # (Auto) 1.1 L, Lymph # (Auto) 0.9, [place] # (Auto) 0.1, Eos # (Auto) 0.0, Baso # (Auto) 0.0, Total Counted 100, Neutrophils % (Manual) 59, Lymphocytes % (Manual) 38, Monocytes % (Manual) 3, Platelet Estimate Marked decrease, Anisocytosis 1+, Ovalocytes 2+, PT 10.8, INR 0.96, APTT 31.8 H, Sodium 140, Potassium 3.9, Chloride 111 H, Carbon Dioxide 21 L, Anion Gap 11.9, BUN 11, Creatinine 1.20, Estimated Creat Clear 71, Estimated GFR 60, Est GFR ( Amer) 73, Glucose 106 H, Calcium 9.6, Phosphorus 2.9, Magnesium 2.2, Total Bilirubin 0.7, AST 36, ALT 30, Alkaline Phosphatase 65, Troponin I < 0.01, NT-Pro-B Natriuret Pep 864 H, Total Protein 7.9, Albumin 4.5, Globulin 3.4 H, Albumin/Globulin Ratio 1.3 10/29/24 16:30: Troponin I < 0.01 10/29/24 19:30: Troponin I < 0.01 10/30/24 05:27: WBC 1.5 L*, RBC 2.04 L, Hgb 7.6 L, Hct 20.7 L*, MCV 101.5 H, MCH 37.3 H, MCHC 36.7 H, RDW 18.7 H, Plt Count 17 L* D, MPV TNP, Neut % (Auto) 50.0, Lymph % (Auto) 43.2, [place] % (Auto) 5.4, Eos % (Auto) 0.0 L, Baso % (Auto) 0.7, Neut # (Auto) 0.7 L*, Lymph # (Auto) 0.6 L, [place] # (Auto) 0.1, Eos # (Auto) 0.0, Baso # (Auto) 0.0, Sodium 140, Potassium 3.7, Chloride 109 H, Carbon Dioxide 22, Anion Gap 12.7, BUN 12, Creatinine 1.20, Estimated Creat Clear 78, Estimated GFR 60, Est GFR ( Amer) 73, Glucose 101 H, Calcium 9.4, Magnesium 2.2, Iron 82, TIBC 285, Iron Saturation 28.12416, Ferritin 444 D, Total Bilirubin 0.6, AST 31, ALT 26, Alkaline Phosphatase 56, Total Protein 7.0, Albumin 3.9 D, Globulin 3.1, Albumin/Globulin Ratio 1.3, Triglycerides 74, Cholesterol 71 L, LDL Cholesterol Direct < 30.00 L, VLDL Cholesterol 15, HDL Cholesterol 40, Cholesterol/HDL Ratio 1.8, Vitamin B12 652, Folate 15.90, Procalcitonin 0.093, TSH 0.53, Free T4 1.09, Blood Type Confirm O Negative 10/30/24 08:21: Blood Type O Negative I & O for Last 24 hours: Intake & Output 10/27/24 10/28/24 10/29/24 10/30/24 23:59 23:59 23:59 23:59 Intake Total 270 / 390 360 / 360 Output Total 0 / 0 Balance 270 / 390 360 / 360 Weight 88.178 kg 94.619 kg Intake & Output 10/27/24 10/28/24 10/29/24 10/30/24 23:59 23:59 23:59 23:59 Intake Total 270 / 390 360 / 360 Output Total 0 / 0 Balance 270 / 390 360 / 360 Weight 194 lb 6.4 oz 208 lb 9.6 oz Constitutional Constitutional: no acute distress *Routine Respiratory Exam Respiratory: Present CTA bilaterally and symmetric chest movement *Routine Cardiovascular Exam Cardiovascular: Present RRR, Normal S1 and Normal S2 *Routine Abdominal Exam Abdominal: Present soft and normoactive bowel sounds; Absent tenderness *Routine Extremities Exam Extremities: Present full ROM and normal capillary refill; Absent edema *Routine Skin Exam Skin: Present intact, dry and warm Detailed Neck Exam: Thyroids Thyroid: Absent bruit Results Data Completed and Pending Labs on day of discharge: Labs from last 24 hours 10/30/24 10/30/24 10/29/24 08:21 05:27 19:30 WBC 1.5 L* RBC 2.04 L Hgb 7.6 L Hct 20.7 L* MCV 101.5 H MCH 37.3 H MCHC 36.7 H RDW 18.7 H Plt Count 17 L* D MPV TNP Neut % (Auto) 50.0 Lymph % (Auto) 43.2 [place] % (Auto) 5.4 Eos % (Auto) 0.0 L Baso % (Auto) 0.7 Neut # (Auto) 0.7 L* Lymph # (Auto) 0.6 L [place] # (Auto) 0.1 Eos # (Auto) 0.0 Baso # (Auto) 0.0 Total Counted Neutrophils % (Manual) Lymphocytes % (Manual) Monocytes % (Manual) Platelet Estimate Anisocytosis Ovalocytes PT INR APTT Sodium 140 Potassium 3.7 Chloride 109 H Carbon Dioxide 22 Anion Gap 12.7 BUN 12 Creatinine 1.20 Estimated Creat Clear 78 Estimated GFR 60 Est GFR ( Amer) 73 Glucose 101 H Calcium 9.4 Phosphorus Magnesium 2.2 Iron 82 TIBC 285 Iron Saturation 28.81931 Ferritin 444 D Total Bilirubin 0.6 AST 31 ALT 26 Alkaline Phosphatase 56 Troponin I < 0.01 NT-Pro-B Natriuret Pep Total Protein 7.0 Albumin 3.9 D Globulin 3.1 Albumin/Globulin Ratio 1.3 Triglycerides 74 Cholesterol 71 L LDL Cholesterol Direct < 30.00 L VLDL Cholesterol 15 HDL Cholesterol 40 Cholesterol/HDL Ratio 1.8 Vitamin B12 652 Folate 15.90 Procalcitonin 0.093 TSH 0.53 Free T4 1.09 Blood Type O Negative Blood Type Confirm O Negative 10/29/24 10/29/24 16:30 13:17 WBC 2.0 L RBC 2.21 L Hgb 8.2 L Hct 22.7 L MCV 102.7 H MCH 37.1 H MCHC 36.1 H RDW 19.0 H Plt Count 24 L* MPV Neut % (Auto) 51.9 Lymph % (Auto) 42.6 [place] % (Auto) 5.0 Eos % (Auto) 0.0 L Baso % (Auto) 0.0 L Neut # (Auto) 1.1 L Lymph # (Auto) 0.9 [place] # (Auto) 0.1 Eos # (Auto) 0.0 Baso # (Auto) 0.0 Total Counted 100 Neutrophils % (Manual) 59 Lymphocytes % (Manual) 38 Monocytes % (Manual) 3 Platelet Estimate Marked decrease Anisocytosis 1+ Ovalocytes 2+ PT 10.8 INR 0.96 APTT 31.8 H Sodium 140 Potassium 3.9 Chloride 111 H Carbon Dioxide 21 L Anion Gap 11.9 BUN 11 Creatinine 1.20 Estimated Creat Clear 71 Estimated GFR 60 Est GFR ( Amer) 73 Glucose 106 H Calcium 9.6 Phosphorus 2.9 Magnesium 2.2 Iron TIBC Iron Saturation Ferritin Total Bilirubin 0.7 AST 36 ALT 30 Alkaline Phosphatase 65 Troponin I < 0.01 < 0.01 NT-Pro-B Natriuret Pep 864 H Total Protein 7.9 Albumin 4.5 Globulin 3.4 H Albumin/Globulin Ratio 1.3 Triglycerides Cholesterol LDL Cholesterol Direct VLDL Cholesterol HDL Cholesterol Cholesterol/HDL Ratio Vitamin B12 Folate Procalcitonin TSH Free T4 Blood Type Blood Type Confirm DS: Diagnosis Discharge Diagnosis (1) Myelodysplasia (myelodysplastic syndrome): Status: Acute Code(s): D46.9 - Myelodysplastic syndrome, unspecified (2) Pancytopenia: Status: Acute Code(s): D61.818 - Other pancytopenia (3) Dyspnea on exertion: Status: Acute Code(s): R06.09 - Other forms of dyspnea Meds Home Medications and Allergies Home Medications ?Medication ?Instructions ?Recorded ?Confirmed ?Type amlodipine 2.5 mg tablet 2.5 mg PO DAILY 03/21/24 10/29/24 History bisoprolol fumarate 5 mg tablet 5 mg PO DAILY 03/21/24 10/29/24 History aspirin 81 mg chewable tablet 81 mg PO DAILY 06/12/24 10/29/24 History (Children's Aspirin) nitroglycerin 0.4 mg sublingual 0.4 mg buccal Q5MINP PRN Chest Pain 09/16/24 10/29/24 History tablet cetirizine 10 mg capsule (Allergy 10 mg PO DAILY 09/19/24 10/29/24 History Relief (cetirizine)) cholecalciferol (vitamin D3) 50 50 mcg PO DAILY 09/19/24 10/29/24 History mcg (2,000 unit) capsule (Vitamin D3) [id number] tablet 1 tab PO DAILY 09/19/24 10/29/24 History isosorbide mononitrate 30 mg 30 mg PO DAILY 10/29/24 10/29/24 History tablet,extended release 24 hr rosuvastatin 40 mg tablet 40 mg PO DAILY 10/29/24 10/29/24 History acyclovir 800 mg tablet 800 mg PO BID 10/30/24 10/30/24 History hydrocortisone 2.5 % topical cream 1 applic topical BID PRN skin 10/30/24 Rx irritation #30 grams levofloxacin 500 mg tablet 500 mg PO DAILY 10/30/24 10/30/24 History posaconazole 100 mg tablet,delayed 300 mg PO DAILY 10/30/24 10/30/24 History release tadalafil 5 mg tablet 5 mg PO NEEDED PRN sexual 10/30/24 10/30/24 History activity venetoclax 10 mg tablet (Venclexta) 0 mg PO DIRECTED 10/30/24 10/30/24 History venetoclax 50 mg tablet (Venclexta) 0 mg PO DIRECTED 10/30/24 10/30/24 History New Prescriptions to Start Prescriptions: Eliu Alexander Allergies Allergy/AdvReac Type Severity Reaction Status Date / Time No Known Allergies Allergy Verified 10/17/24 13:38 Discharge Plan Disposition Patient Disposition: Home, Self-Care Condition: Fair Follow up Plan Follow up with: Carlos Alberto Bagley MD [Primary Care Provider] - 11/06/24 11:20 am Prescriptions/Medication Reconciliation: New hydrocortisone 2.5 % cream 1 applic topical BID PRN (Reason: skin irritation) Qty: 30 0RF Continued nitroglycerin 0.4 mg tablet, sublingual 0.4 mg buccal Q5MINP PRN (Reason: Chest Pain) aspirin [Children's Aspirin] 81 mg tablet,chewable 81 mg PO DAILY Patient Comments: CHEW AND SWALLOW 1 TABLET BY MOUTH ONCE DAILY [id number] Tablet 1 tab PO DAILY cholecalciferol (vitamin D3) [Vitamin D3] 50 mcg (2,000 unit) Capsule 50 mcg PO DAILY Allergy Relief (cetirizine) 10 mg Capsule 10 mg PO DAILY isosorbide mononitrate 30 mg tablet extended release 24 hr 30 mg PO DAILY rosuvastatin 40 mg tablet 40 mg PO DAILY Patient Comments: TAKE 1 TABLET BY MOUTH ONCE DAILY acyclovir 800 mg tablet 800 mg PO BID levofloxacin 500 mg tablet 500 mg PO DAILY posaconazole 100 mg tablet,delayed release (DR/EC) 300 mg PO DAILY Venclexta 10 mg tablet 0 mg PO DIRECTED Venclexta 50 mg tablet 0 mg PO DIRECTED tadalafil 5 mg tablet 5 mg PO NEEDED PRN (Reason: sexual activity) Rx Instructions: administer approximately 30min before sexual activity; do not use more than 1 dose per 24hrs Held amlodipine 2.5 mg tablet 2.5 mg PO DAILY Hold Instructions: Resume on 11/13/24. Your blood pressure was stable without this medication. Please hold until you see your chief commercial officer. bisoprolol fumarate 5 mg tablet 5 mg PO DAILY Hold Instructions: Resume on 11/13/24. Your blood pressure was stable without this medication. Please hold until you see your chief commercial officer. Problem Reconciliation Problems Reviewed?: Yes Patient Discharge Instructions Patient Instructions: Heart Failure, DI for Shortness of Breath, How to [place] With Heart Failure, How to Manage Shortness of Breath Print Language: Hungarian Providers Primary Care Provider: Carlos Alberto Bagley Admit Provider: Eliu Marlow Attending Provider: Eliu Marlow
--- NOTE | 2024-10-30 13:22 | PC.NURSE ---
Unable to end in TAR charge DAT early.
[2024-10-30] MEDS: LACTATED RINGERS 1000ML 1,000 ML 999 ML IV (14:07)
--- NOTE | 2024-11-03 11:18 | SW/DCPLANNER ---
Spoke with patient on the phone. Patient stated that he is on his way up to [place] to [facility]. Patient stated that he must had an allergic reaction and is going to get blood work done because he has been running a fever. Patient stated that he is aware of his up coming appointment and that he might have to reschedule it. patient stated that he was able to get his new medicine picked up Facundo Alvarado
== END 2024-10-30 15:30 | disposition home or self-care (01) ==
LOC: ER 13:57 → 2ND 16:00
PROVIDERS: Nurse Practitioner Family; Admitting Provider Student in an Organized Health Care Education/Training Program; Emergency Provider Emergency Medicine; PCP Family Medicine; Visit Provider Student in an Organized Health Care Education/Training Program
DX: I42.7 Cardiomyopathy due to drug and external agent (principal); C92.00 Acute myeloblastic leukemia, not having achieved remission; R06.02 Shortness of breath; T45.1X5A Adverse effect of antineoplastic and immunosuppressive drugs, initial encounter; D46.9 Myelodysplastic syndrome, unspecified; D61.818 Other pancytopenia; I50.9 Heart failure, unspecified; J44.9 Chronic obstructive pulmonary disease, unspecified; F17.210 Nicotine dependence, cigarettes, uncomplicated; Z79.899 Other long term (current) drug therapy
CPT/HCPCS: 36415; 36430; 71275; 80053; 80061; 82607; 82728; 82746; 83540; 83550; 83735; 83880; 84100; 84145; 84439; 84443; 84484; 85007; 85014; 85018; 85025; 85048; 85049; 85610; 85730; 86900; 86901; 93005; 93306; 99285; G0378; J1938; J7120; P9034; Q9967

== ENCOUNTER 2024-11-07 10:39 | Outpatient (CLI) | payer MEDICARE, SELFPAY ==
[2024-11-07 10:49] VITALS: BMI 31.3
[2024-11-07 11:08] LABS: Albumin Level 4.1 g/dl (3.5-5.0); Chloride 107 mmol/L (98-107); Potassium 3.7 mmoL/L (3.5-5.1); Sodium 141 mmol/L (136-145)
[2024-11-07 11:10] LABS: Blood Urea Nitrogen 10 mg/dl (9-20); Creatinine Clearance Estimated 89 mL/min (50-200); Estimated Glomerular Filt Rate 74 ml/min (>60); GFR (African American) 90 ML/MIN (>60)
[2024-11-07 11:11] LABS: Alanine Aminotransferase 51 U/L (12-78); Albumin/Globulin Ratio 1.2 (1.1-1.8); Alkaline Phosphatase 73 U/L (38-126); Anion Gap 14.7 mEq/L (5-15); Aspartate Amino Transferase 48 U/L (17-59); Bilirubin,Total 0.8 mg/dl (0.2-1.3); Calcium 9.2 mg/dl (8.4-10.2); Carbon Dioxide 23 mmol/L (22.0-30.0); Globulin 3.5 g/dL (1.3-3.2); Glucose 111 mg/dl (74-100); Total Protein,Serum 7.6 g/dl (6.3-8.2)
[2024-11-07 11:24] LABS: Hematocrit 22.1 % (42.0-52.0); Hemoglobin 8.1 g/dL (14.1-18.0); Lymphocytes # 0.6 K/mm3 (0.7-4.5); Lymphocytes % 61.5 % (10-50); Mean Corpuscular HGB Conc 36.7 g/dL (31.8-35.4); Mean Corpuscular Volume 98.2 fl (80-94); Monocytes # 0.1 K/mm3 (0.1-1.0); Monocytes % 7.7 % (1.7-9.3); Neutrophils # 0.3 K/mm3 (1.8-7.8); Neutrophils % 30.8 % (37.0-80.0); Nucleated Red Blood Cells # 0 10^3/uL; Nucleated Red Blood Cells % 0 %; Red Blood Count 2.25 M/mm3 (4.60-6.20); Red Cell Distribution Width 19.7 % (11.5-17.5); Red Cell Distribution Width-SD 69.8 fL
[2024-11-07 11:26] LABS: Platelet Count 12 K/mm3 (142-424); White Blood Count 0.9 K/mm3 (4.8-10.8)
[2024-11-07 11:28] LABS: MANUAL DIFFERENTIAL MANUAL DIFFERENTIAL (MANUAL DIFF)
[2024-11-07 12:47] LABS: Lymphocytes % 75 % (10-50); Monocytes % 5 % (2-9); Neutrophils % 20 % (42-76); Total Cells Counted 20
[2024-11-07 12:48] LABS: Anisocytosis 1+; Ovalocytes 1+; Platelet Estimate Marked Decrease
--- NOTE | 2024-11-07 12:49 | PC.NURSE ---
1050-Blood drawn from left AC using butterfly needle to check CBC and CMP.
== END 2024-11-07 11:25 | disposition home or self-care (01) ==
LOC: INF 10:40
PROVIDERS: PCP Family Medicine; Visit Provider Internal Medicine Medical Oncology
DX: R51.9 Headache, unspecified (principal)
CPT/HCPCS: 36415; 80053; 85007; 85025

== ENCOUNTER 2024-11-12 10:27 | Outpatient (CLI) | payer MEDICARE, SELFPAY ==
[2024-11-12 10:34] VITALS: BMI 31.3
[2024-11-12 10:57] LABS: Alanine Aminotransferase 48 U/L (12-78); Albumin/Globulin Ratio 1.1 (1.1-1.8); Alkaline Phosphatase 78 U/L (38-126); Aspartate Amino Transferase 43 U/L (17-59); Bilirubin,Total 0.7 mg/dl (0.2-1.3); Blood Urea Nitrogen 10 mg/dl (9-20); Calcium 8.9 mg/dl (8.4-10.2); Carbon Dioxide 21 mmol/L (22.0-30.0); Chloride 112 mmol/L (98-107); Creatinine Clearance Estimated 89 mL/min (50-200); Estimated Glomerular Filt Rate 84 ml/min (>60); GFR (African American) 101 ML/MIN (>60); Globulin 3.6 g/dL (1.3-3.2); Glucose 100 mg/dl (74-100); Sodium 142 mmol/L (136-145); Total Protein,Serum 7.6 g/dl (6.3-8.2)
[2024-11-12 11:12] LABS: Hemoglobin 7.6 g/dL (14.1-18.0); Lymphocytes # 0.7 K/mm3 (0.7-4.5); Lymphocytes % 71.9 % (10-50); Mean Corpuscular HGB Conc 36.2 g/dL (31.8-35.4); Mean Corpuscular Hemoglobin 36.2 pg (27.0-31.2); Monocytes # 0.1 K/mm3 (0.1-1.0); Monocytes % 6.3 % (1.7-9.3); Neutrophils # 0.2 K/mm3 (1.8-7.8); Neutrophils % 20.8 % (37.0-80.0); Nucleated Red Blood Cells # 0 10^3/uL; Nucleated Red Blood Cells % 0 %; Red Cell Distribution Width 19.7 % (11.5-17.5); Red Cell Distribution Width-SD 71.9 fL
[2024-11-12 11:23] LABS: Platelet Count 16 K/mm3 (142-424)
[2024-11-12 11:24] LABS: MANUAL DIFFERENTIAL MANUAL DIFFERENTIAL (MANUAL DIFF)
[2024-11-12 12:36] LABS: Lymphocytes % 72 % (10-50); Macrocytosis 1+; Monocytes % 16 % (2-9); Neutrophils % 12 % (42-76); Platelet Estimate Marked Decrease; Total Cells Counted 25
[2024-11-12 15:16] VITALS: BP 127/74; PULSE 71; RESP 18; TEMP 36.8; O2SAT 97
[2024-11-12 15:20] VITALS: BP 125/57; PULSE 64; RESP 18; TEMP 36.8; O2SAT 100
[2024-11-12 15:25] VITALS: BP 117/54; PULSE 66; RESP 18; TEMP 36.7; O2SAT 100
[2024-11-12 15:30] VITALS: BP 112/66; PULSE 61; RESP 17; TEMP 36.4; O2SAT 99
[2024-11-12 15:35] VITALS: BP 126/75; PULSE 65; RESP 17; TEMP 36.7; O2SAT 99
[2024-11-12 16:05] VITALS: BP 122/63; PULSE 64; RESP 18; TEMP 36.6; O2SAT 100
[2024-11-12] MEDS: 0.9 % SODIUM CHLORIDE 250 ML 25 ML IV (16:12)
== END 2024-11-12 16:13 | disposition home or self-care (01) ==
LOC: INF 10:28
PROVIDERS: PCP Family Medicine; Visit Provider Internal Medicine Medical Oncology
DX: D64.9 Anemia, unspecified (principal)
CPT/HCPCS: 36430; 80053; 85007; 85025; 86900; 86901; P9034

== ENCOUNTER 2024-11-14 11:36 | Outpatient (CLI) | payer MEDICARE, SELFPAY ==
[2024-11-14 11:41] VITALS: BMI 30.4
[2024-11-14 11:58] LABS: Chloride 112 mmol/L (98-107); Potassium 3.7 mmoL/L (3.5-5.1); Sodium 140 mmol/L (136-145)
[2024-11-14 12:01] LABS: Alanine Aminotransferase 47 U/L (12-78); Albumin/Globulin Ratio 1.1 (1.1-1.8); Alkaline Phosphatase 71 U/L (38-126); Anion Gap 9.7 mEq/L (5-15); Aspartate Amino Transferase 48 U/L (17-59); Bilirubin,Total 0.7 mg/dl (0.2-1.3); Blood Urea Nitrogen 11 mg/dl (9-20); Carbon Dioxide 22 mmol/L (22.0-30.0); Creatinine Clearance Estimated 87 mL/min (50-200); Estimated Glomerular Filt Rate 74 ml/min (>60); GFR (African American) 90 ML/MIN (>60); Globulin 3.5 g/dL (1.3-3.2); Total Protein,Serum 7.5 g/dl (6.3-8.2)
[2024-11-14 12:02] LABS: Glucose 99 mg/dl (74-100)
--- NOTE | 2024-11-14 12:05 | PC.NURSE ---
1145-Blood drawn from left AC using butterfly needle to check CBC and CMP at this time.
[2024-11-14 12:21] LABS: Hemoglobin 7.2 g/dL (14.1-18.0); Lymphocytes # 0.5 K/mm3 (0.7-4.5); Mean Corpuscular HGB Conc 35.6 g/dL (31.8-35.4); Mean Corpuscular Hemoglobin 35.8 pg (27.0-31.2); Mean Corpuscular Volume 100.5 fl (80-94); Monocytes # 0.1 K/mm3 (0.1-1.0); Monocytes % 8.2 % (1.7-9.3); Neutrophils # 0.1 K/mm3 (1.8-7.8); Neutrophils % 17.8 % (37.0-80.0); Nucleated Red Blood Cells # 0 10^3/uL; Nucleated Red Blood Cells % 0 %; Red Blood Count 2.01 M/mm3 (4.60-6.20); Red Cell Distribution Width 19.9 % (11.5-17.5); Red Cell Distribution Width-SD 72.1 fL
[2024-11-14 12:24] LABS: Hematocrit 20.2 % (42.0-52.0); Platelet Count 26 K/mm3 (142-424); White Blood Count 0.7 K/mm3 (4.8-10.8)
[2024-11-14 12:26] LABS: MANUAL DIFFERENTIAL MANUAL DIFFERENTIAL (MANUAL DIFF)
[2024-11-14 12:55] LABS: Lymphocytes % 76 % (10-50); Macrocytosis 1+; Monocytes % 8 % (2-9); Neutrophils % 16 % (42-76); Platelet Estimate Marked Decrease; Total Cells Counted 25
== END 2024-11-14 12:30 | disposition home or self-care (01) ==
LOC: INF 11:37
PROVIDERS: PCP Family Medicine; Visit Provider Internal Medicine Medical Oncology
DX: D64.9 Anemia, unspecified (principal)
CPT/HCPCS: 36415; 80053; 85007; 85025

== ENCOUNTER 2024-11-28 07:26 | Outpatient (CLI) | payer MEDICARE, SELFPAY ==
[2024-11-28 08:11] VITALS: BMI 31.3
[2024-11-28 08:31] LABS: Chloride 111 mmol/L (98-107)
[2024-11-28 08:32] LABS: Albumin Level 3.8 g/dl (3.5-5.0); Sodium 138 mmol/L (136-145)
[2024-11-28 08:34] LABS: Blood Urea Nitrogen 11 mg/dl (9-20); Creatinine Clearance Estimated 89 mL/min (50-200); Estimated Glomerular Filt Rate 84 ml/min (>60); GFR (African American) 101 ML/MIN (>60)
[2024-11-28 08:35] LABS: Alanine Aminotransferase 46 U/L (12-78); Albumin/Globulin Ratio 1.3 (1.1-1.8); Alkaline Phosphatase 86 U/L (38-126); Anion Gap 8.9 mEq/L (5-15); Aspartate Amino Transferase 53 U/L (17-59); Bilirubin,Total 0.7 mg/dl (0.2-1.3); Carbon Dioxide 22 mmol/L (22.0-30.0); Globulin 2.9 g/dL (1.3-3.2); Glucose 118 mg/dl (74-100); Hematocrit 22.7 % (42.0-52.0); Hemoglobin 8.3 g/dL (14.1-18.0); Immature Granulocytes # 0 10^3uL; Immature Granulocytes % 0 %; Lymphocytes # 0.6 K/mm3 (0.7-4.5); Lymphocytes % 88.6 % (10-50); Mean Corpuscular HGB Conc 36.6 g/dL (31.8-35.4); Mean Corpuscular Hemoglobin 33.3 pg (27.0-31.2); Mean Corpuscular Volume 91.2 fl (80-94); Monocytes % 2.9 % (1.7-9.3); Neutrophils # 0.1 K/mm3 (1.8-7.8); Neutrophils % 8.5 % (37.0-80.0); Nucleated Red Blood Cells # 0 10^3/uL; Nucleated Red Blood Cells % 0 %; Potassium 3.9 mmoL/L (3.5-5.1); Red Blood Count 2.49 M/mm3 (4.60-6.20); Red Cell Distribution Width 17.4 % (11.5-17.5); Red Cell Distribution Width-SD 57.3 fL; Total Protein,Serum 6.7 g/dl (6.3-8.2)
[2024-11-28 08:41] LABS: Platelet Count 10 K/mm3 (142-424); White Blood Count 0.7 K/mm3 (4.8-10.8)
[2024-11-28 08:42] LABS: MANUAL DIFFERENTIAL MANUAL DIFFERENTIAL (MANUAL DIFF)
--- NOTE | 2024-11-28 09:17 | PC.NURSE ---
0815-Blood drawn from right AC using butterfly needle to check CBC and CMP at this time. 0848-Breana from lab kin blood blood for type and crossmatch for 1 unit platelets.
[2024-11-28 09:21] LABS: Lymphocytes % 78 % (10-50); Monocytes % 4 % (2-9); Neutrophils % 18 % (42-76); Ovalocytes 1+; Platelet Estimate Marked Decrease; Total Cells Counted 50
[2024-11-28 13:10] VITALS: BP 116/72; PULSE 63; RESP 17; TEMP 36.9; O2SAT 98
[2024-11-28 13:30] VITALS: BP 108/70; PULSE 67; RESP 16; TEMP 36.8
[2024-11-28] MEDS: 0.9 % SODIUM CHLORIDE 250 ML 25 ML IV (13:30)
--- NOTE | 2024-11-28 13:33 | PC.NURSE ---
1330-Platelets started infusing by gravity at this time.
[2024-11-28 13:35] VITALS: BP 113/63; PULSE 61; RESP 16; TEMP 37
[2024-11-28 13:40] VITALS: BP 118/62; PULSE 60; RESP 16; TEMP 36.9
[2024-11-28 13:45] VITALS: BP 116/66; PULSE 61; RESP 17; TEMP 37
[2024-11-28 14:15] VITALS: BP 114/62; PULSE 60; RESP 17; TEMP 36.9
== END 2024-11-28 14:20 | disposition home or self-care (01) ==
LOC: INF 07:28
PROVIDERS: PCP Family Medicine; Visit Provider Internal Medicine Medical Oncology
DX: D64.9 Anemia, unspecified (principal)
CPT/HCPCS: 36415; 36430; 80053; 85007; 85025; 86900; 86901; P9034

== ENCOUNTER 2024-12-02 10:36 | Outpatient (CLI) | payer MEDICARE, SELFPAY ==
[2024-12-02] VITALS (10 sets, daily range): BP systolic 101–127; BP diastolic 61–74; PULSE 63–69; RESP 18–20; TEMP 36.7–36.9; O2SAT 97–99; BMI 30.1
[2024-12-02 10:53] LABS: Hemoglobin 7.2 g/dL (14.1-18.0); Immature Granulocytes # 0 10^3uL; Immature Granulocytes % 0 %; Lymphocytes # 0.6 K/mm3 (0.7-4.5); Lymphocytes % 90.8 % (10-50); Mean Corpuscular HGB Conc 36.2 g/dL (31.8-35.4); Mean Corpuscular Hemoglobin 33.5 pg (27.0-31.2); Mean Corpuscular Volume 92.6 fl (80-94); Mean Platelet Volume 10.7 fl (7.4-10.4); Monocytes % 4.6 % (1.7-9.3); Neutrophils % 4.6 % (37.0-80.0); Nucleated Red Blood Cells # 0 10^3/uL; Nucleated Red Blood Cells % 0 %; Red Blood Count 2.15 M/mm3 (4.60-6.20); Red Cell Distribution Width 17.3 % (11.5-17.5); Red Cell Distribution Width-SD 57.8 fL
[2024-12-02 10:59] LABS: Albumin Level 3.9 g/dl (3.5-5.0); Chloride 115 mmol/L (98-107); Hematocrit 19.9 % (42.0-52.0); Platelet Count 34 K/mm3 (142-424); White Blood Count 0.7 K/mm3 (4.8-10.8)
[2024-12-02 11:00] LABS: Potassium 3.8 mmoL/L (3.5-5.1); Sodium 139 mmol/L (136-145)
[2024-12-02 11:01] LABS: MANUAL DIFFERENTIAL MANUAL DIFFERENTIAL (MANUAL DIFF)
[2024-12-02 11:02] LABS: Blood Urea Nitrogen 9 mg/dl (9-20); Creatinine Clearance Estimated 86 mL/min (50-200); Estimated Glomerular Filt Rate 96 ml/min (>60); GFR (African American) 116 ML/MIN (>60)
[2024-12-02 11:03] LABS: Alanine Aminotransferase 26 U/L (12-78); Albumin/Globulin Ratio 1.4 (1.1-1.8); Alkaline Phosphatase 78 U/L (38-126); Anion Gap 6.8 mEq/L (5-15); Aspartate Amino Transferase 25 U/L (17-59); Bilirubin,Total 0.5 mg/dl (0.2-1.3); Calcium 8.7 mg/dl (8.4-10.2); Carbon Dioxide 21 mmol/L (22.0-30.0); Globulin 2.8 g/dL (1.3-3.2); Glucose 112 mg/dl (74-100); Total Protein,Serum 6.7 g/dl (6.3-8.2)
[2024-12-02 11:20] LABS: Hypochromasia 1+; Lymphocytes % 90 % (10-50); Monocytes % 2 % (2-9); Neutrophils % 8 % (42-76); Ovalocytes 1+; Platelet Estimate Marked Decrease; Poikilocytosis 1+; Total Cells Counted 50
[2024-12-02 11:21] LABS: Acanthocytes 1+
[2024-12-02] MEDS: diphenhydrAMINE 25MG CAPSULE 25 MG PO (14:00)
[2024-12-02] MEDS: 0.9 % SODIUM CHLORIDE 250 ML 25 ML IV (14:00)
[2024-12-02] MEDS: ACETAMINOPHEN 325MG TAB 650 MG (14:00)
== END 2024-12-02 23:59 | disposition home or self-care (01) ==
LOC: INF 10:37
PROVIDERS: PCP Family Medicine; Visit Provider Internal Medicine Medical Oncology
DX: D64.9 Anemia, unspecified (principal)
CPT/HCPCS: 36430; 80053; 85007; 85025; 86850; P9016

== ENCOUNTER 2024-12-08 08:55 | Outpatient (CLI) | payer MEDICARE, SELFPAY ==
[2024-12-08] VITALS (7 sets, daily range): BP systolic 108–134; BP diastolic 55–83; PULSE 68–74; RESP 14–16; TEMP 36.8–37.1; O2SAT 98–99; BMI 31.3
[2024-12-08 09:28] LABS: Albumin Level 4.1 g/dl (3.5-5.0); Chloride 112 mmol/L (98-107); Potassium 3.6 mmoL/L (3.5-5.1); Sodium 141 mmol/L (136-145)
[2024-12-08 09:31] LABS: Alanine Aminotransferase 49 U/L (12-78); Albumin/Globulin Ratio 1.4 (1.1-1.8); Alkaline Phosphatase 77 U/L (38-126); Anion Gap 10.6 mEq/L (5-15); Aspartate Amino Transferase 43 U/L (17-59); Bilirubin,Total 0.8 mg/dl (0.2-1.3); Blood Urea Nitrogen 10 mg/dl (9-20); Carbon Dioxide 22 mmol/L (22.0-30.0); Creatinine Clearance Estimated 89 mL/min (50-200); Estimated Glomerular Filt Rate 96 ml/min (>60); GFR (African American) 116 ML/MIN (>60); Globulin 2.9 g/dL (1.3-3.2)
[2024-12-08 09:32] LABS: Calcium 9.1 mg/dl (8.4-10.2); Glucose 114 mg/dl (74-100)
[2024-12-08 09:40] LABS: Hemoglobin 8.2 g/dL (14.1-18.0); Immature Granulocytes # 0 10^3uL; Immature Granulocytes % 0 %; Lymphocytes # 0.5 K/mm3 (0.7-4.5); Lymphocytes % 84.9 % (10-50); Mean Corpuscular HGB Conc 36.8 g/dL (31.8-35.4); Mean Corpuscular Hemoglobin 33.1 pg (27.0-31.2); Mean Corpuscular Volume 89.9 fl (80-94); Monocytes # 0.1 K/mm3 (0.1-1.0); Monocytes % 9.4 % (1.7-9.3); Neutrophils % 5.7 % (37.0-80.0); Nucleated Red Blood Cells # 0.02 10^3/uL; Nucleated Red Blood Cells % 3.8 %; Red Blood Count 2.48 M/mm3 (4.60-6.20); Red Cell Distribution Width 16.7 % (11.5-17.5); Red Cell Distribution Width-SD 52.5 fL
[2024-12-08 09:49] LABS: Platelet Count 5 K/mm3 (142-424); White Blood Count 0.5 K/mm3 (4.8-10.8)
[2024-12-08 09:50] LABS: Hematocrit 22.3 % (42.0-52.0)
[2024-12-08 09:52] LABS: MANUAL DIFFERENTIAL MANUAL DIFFERENTIAL (MANUAL DIFF)
--- NOTE | 2024-12-08 10:53 | PC.NURSE ---
0905 CBC/CMP collected via venipuncture to R outer AC area with butterfly needle x1 stick. Patient tolerated well.
[2024-12-08 14:26] LABS: Anisocytosis 1+; Lymphocytes % 88 % (10-50); Neutrophils % 4 % (42-76); Nucleated Red Blood Cells 2; Platelet Estimate Marked Decrease; Total Cells Counted 50
[2024-12-08 14:27] LABS: Hypochromasia 1+; Poikilocytosis 1+
[2024-12-08 14:28] LABS: Schistocytes 1+
[2024-12-08] MEDS: 0.9 % SODIUM CHLORIDE 250 ML 25 ML IV (15:44)
== END 2024-12-08 16:47 | disposition home or self-care (01) ==
LOC: INF 08:56
PROVIDERS: PCP Family Medicine; Visit Provider Internal Medicine Medical Oncology
DX: D64.9 Anemia, unspecified (principal)
CPT/HCPCS: 36430; 80053; 85007; 85025; 86900; 86901; P9034

== ENCOUNTER 2024-12-25 08:14 | Outpatient (CLI) | payer MEDICARE, SELFPAY ==
[2024-12-25] VITALS (15 sets, daily range): BP systolic 103–141; BP diastolic 55–77; PULSE 67–78; RESP 17–18; TEMP 36.7–37.1; O2SAT 96–100; BMI 31.3
[2024-12-25 08:32] LABS: Eosinophils % 1.6 % (0.1-12.0); Hematocrit 22.9 % (42.0-52.0); Hemoglobin 7.9 g/dL (14.1-18.0); Immature Granulocytes # 0 10^3uL; Immature Granulocytes % 0 %; Lymphocytes # 0.5 K/mm3 (0.7-4.5); Lymphocytes % 88.5 % (10-50); Mean Corpuscular HGB Conc 34.5 g/dL (31.8-35.4); Mean Corpuscular Volume 87.1 fl (80-94); Mean Platelet Volume 10.3 fl (7.4-10.4); Monocytes % 3.3 % (1.7-9.3); Neutrophils % 6.6 % (37.0-80.0); Nucleated Red Blood Cells # 0 10^3/uL; Nucleated Red Blood Cells % 0 %; Red Blood Count 2.63 M/mm3 (4.60-6.20); Red Cell Distribution Width-SD 43.9 fL
[2024-12-25 08:37] LABS: Albumin Level 3.9 g/dl (3.5-5.0); Chloride 111 mmol/L (98-107); Potassium 3.9 mmoL/L (3.5-5.1); Sodium 139 mmol/L (136-145)
[2024-12-25 08:40] LABS: Alanine Aminotransferase 16 U/L (12-78); Albumin/Globulin Ratio 1.3 (1.1-1.8); Alkaline Phosphatase 94 U/L (38-126); Anion Gap 10.9 mEq/L (5-15); Aspartate Amino Transferase 22 U/L (17-59); Bilirubin,Total 0.6 mg/dl (0.2-1.3); Blood Urea Nitrogen 13 mg/dl (9-20); Carbon Dioxide 21 mmol/L (22.0-30.0); Creatinine Clearance Estimated 89 mL/min (50-200); Estimated Glomerular Filt Rate 84 ml/min (>60); GFR (African American) 101 ML/MIN (>60); Globulin 2.9 g/dL (1.3-3.2); Total Protein,Serum 6.8 g/dl (6.3-8.2)
[2024-12-25 08:41] LABS: Calcium 8.9 mg/dl (8.4-10.2); Glucose 127 mg/dl (74-100)
[2024-12-25 08:51] LABS: Platelet Count 11 K/mm3 (142-424); White Blood Count 0.6 K/mm3 (4.8-10.8)
[2024-12-25 08:52] LABS: MANUAL DIFFERENTIAL MANUAL DIFFERENTIAL (MANUAL DIFF)
[2024-12-25 09:47] LABS: Lymphocytes % 90 % (10-50); Neutrophils % 10 % (42-76); Total Cells Counted 50
[2024-12-25 09:49] LABS: Platelet Estimate Marked Decrease; RBC Morphology Normal
[2024-12-25] MEDS: diphenhydrAMINE 25MG CAPSULE 25 MG PO (13:00)
[2024-12-25] MEDS: ACETAMINOPHEN 325MG TAB 650 MG PO (13:00)
[2024-12-25] MEDS: 0.9 % SODIUM CHLORIDE 250 ML 25 ML IV (16:28)
== END 2024-12-25 16:36 | disposition home or self-care (01) ==
LOC: INF 08:15
PROVIDERS: PCP Family Medicine; Visit Provider Internal Medicine Medical Oncology
DX: D64.9 Anemia, unspecified (principal)
CPT/HCPCS: 36430; 80053; 85007; 85025; 85027; 86850; J1642; J7050; P9016; P9034

== ENCOUNTER 2024-12-30 08:25 | Outpatient (CLI) | payer MEDICARE, SELFPAY ==
--- OUTSIDE RECORDS SUMMARY | 2024-11-03 14:31 | XMS_ITS | Encounter Summary ---
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 Name Role Phone Zhao Harris MD Primary Care Provider [phone] Reason for Visit * Reason Comments Shortness of Breath Encounter Details Date Type Department Care Team ([facility] Contact Info) Description 11/03/2024 2:31 PM EDT - 11/03/2024 6:28 PM EDT Emergency [facility] Emergency Department [address] [place] [address] Misty Bearden MD [address] [place] [address] Symptomatic anemia (Primary Dx); Thrombocytopenia (CMS/HCC); Neutropenia, unspecified type (CMS/HCC) Discharge Disposition: Home or Self Care Social History Tobacco Use Types Packs/Day Years Used Date Smoking Tobacco: Every Day Cigarettes 1.5 15 Started: 1994 Passive Smoke Exposure: Current Smokeless Tobacco: Never Alcohol Use Standard Drinks/Week Comments Yes 6 (1 standard drink = 0.6 oz pur e alcohol) PHQ-2 Answer Date Recorded Patient Health Questionnaire-2 Score 0 09/11/2024 PHQ-9 Answer Date Recorded Patient Health Questionnaire-9 Score 0 09/11/2024 CAGE ASSESSMENT Answer Date Recorded Cage unable to access Not on file 11/03/2024 Maximum number of drinks you had on a given occasion in the last month? 1 drink 11/03/2024 How many alcoholic Beverages do you typically drink in a week? 0 - 7 per week 11/03/2024 Have you ever felt you should CUT down on your d rinking? 0 11/03/2024 Have you been ANNOYED by peo ple criticizing your drinking? 0 11/03/2024 Have you felt GUILTY about your drinking? 0 11/03/2024 Have you had a drink first t manav in the morning (E[employer]OV[employer] SHIFT ENGINEER) to steady your nerves or to get rid of a hangover? 0 11/03/2024 CAGE Questionnaire Score 0 025 Sex and Gender Information Value Date Recorded Sex Assigned at Male 05/18/2023 9:35 AM EDT Legal Sex Male 7:29 PM EDT Gender Identity Male 05/18/2023 9:35 AM EDT Sexual Orientation Straight 05/18/2023 9: 35 AM EDT documented as of this encounter Last Filed Vital Signs Vital Sign Reading Time Taken Comments Blood Pressure 131/82 11/03/2024 5:32 PM EDT Pulse 77 11/03/2024 5:32 PM EDT Temperature 36.8 C (98.2 F) 11/03/2024 5:32 PM EDT Respiratory Rate 20 11/03/2024 5:32 PM EDT Oxygen Saturation 98% 11/03/2024 5:32 PM EDT Inhaled Oxygen Concentration - - Weight 88.5 kg (195 lb) 11/03/2024 12:46 PM EDT Height 170.2 cm (5' 7 ) 11/03/2024 12:46 PM EDT Body Mass Index 30.54 11/03/2024 12:46 PM EDT documented in this encounter Functional Status * Calculated C-SSRS Risk Score (Lifetime/Recent) Answer Date of Assessment Author No Risk Indicated 11/03/2024 2:35 PM EDT Ira Diamond RN * Question Answer Date of Assessment Author 1. Wish to be (Past 1 Month) No 025 2:35 PM EDT Ira Diamond RN 2. Non-Specific Active Suici berry Thoughts (Past 1 Month) No 11/03/2024 2:35 PM EDT Ira Diamond RN 6. Suicidal Behavior (Lifetime) No 2:35 PM EDT Ira Diamond RN documented as of this encounter Discharge Instructions * Discharge Instructions* Deepak Chand MD - 11/03/2024 5:56 PM EDT Please return to ED if your symptoms worsen, change in location, change in severity, new symptoms develop or if you become concerned for your health. Please return if you develop a fever of 100.4. documented in this encounter Medications at Time of Discharge acyclovir (Zovirax) 800 MG tabletIndications :Myelodysplasia (myelodysplastic syndrome) (CMS/HCC) Take 1 tablet (800 mg) by mouth in the morning and 1 tablet (800 mg) before bedtime. 60 tablet 3 10/14/2024 bisoprolol (Zebeta) 5 MG tabletIndications :Coronary artery disease involving [place] heart with angina pectoris, unspecified vessel or lesion type (CMS/HCC),Hyperte nsion, unspecified type Take 1 tablet (5 mg) by mouth daily. 90 tablet 3 09/11/2024 levoFLOXacin (Levaquin) 500 MG tabletIndications :Myelodysplasia (myelodysplastic syndrome) (CMS/HCC) Take 1 tablet (500 mg) by mouth daily. 30 tablet 3 10/14/2024 nitroglycerin (Nitrostat) 0.4 MG SL tabletIndications :Coronary artery disease involving [place] heart with angina pectoris, unspecified vessel or lesion type (CMS/HCC) Place 1 tablet (0.4 mg) under the tongue every 5 (five) minutes as needed for chest pain. 10 tablet 11 09/11/2024 posaconazole (Noxafil) [address] tabletIndications :Myelodysplasia (myelodysplastic syndrome) (CMS/HCC) Take 3 tablets (300 mg) by mouth daily with breakfast. Starting Cycle 1 Day 3 of venetoclax, take 300mg twice daily for 2 doses, then 300mg daily every day from then on. Do not crush, chew, or split. 90 tablet 5 10/14/2024 prochlorperazine (Compazine) 10 MG tabletIndications :Myelodysplasia (myelodysplastic syndrome) (CMS/HCC) Take 1 tablet (10 mg) by mouth every 6 hours as needed for nausea or vomiting. 30 tablet 5 10/14/2024 rosuvastatin (Crestor) 40 MG tablet Take 1 tablet (40 mg) by mouth daily. 30 tablet 11 10/13/2024 senna-docusate sodium (Senokot-S) 8.6-50 MG tablet Take 2 tablets by mouth at night as needed for constipation. 30 tablet 3 10/23/2024 aspirin 81 MG chewable tablet Chew 1 tablet (81 mg) 1 (one) time each day. aspirin 81 mg tablet 30 tablet 11 11/29/2023 amLODIPine (Norvasc) 2.5 MG tabletIndications :Coronary artery disease involving [place] heart with angina pectoris, unspecified vessel or lesion type (CMS/HCC),Hyperte nsion, unspecified type Take 1 tablet (2.5 mg) by mouth daily. 90 tablet 3 09/11/2024 hydrocortisone 2.5 % cream Apply 1 Application topically as needed. 10/30/2024 isosorbide mononitrate ER (Imdur) 30 MG 24 hr tablet Take 1 tablet (30 mg) by mouth daily. Do not crush or chew. 30 tablet 11 10/03/2024 nicotine (Nicoderm CQ) 21 MG/24HR patch Place 1 patch on the skin 1 (one) time each day at the same time. 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 Upon arrival he has remained afebrile. Hgb 7 and Plt 10, he was given 1U PRBC and plt. He feels subjectively better after blood products transfusion. No fevers documented or abnormal vital signs. Pt desires to go home and in the setting of being non-febrile this is OK. He will follow with Kierra Novak APRN on 11/10/24. Advised the ED provider to remind pt of the appt. Landon Viveros D.O. Hematology and Oncology Fellow [facility] * ED Provider Notes - Deepak Chand MD - 11/03/2024 12:42 PM EDT Images from the original note were not included. - HPI Chief Complaint Patient presents with Shortness of Breath [facility] Note Hugo Lyons is a 69 y.o. male who presents to ED with Shortness of Breath. Pt reports he hasa fever (tmax 100.3F last night) at night x3 days, nosebleed, petechia, headache, cough, and shortness of breath. Pt was diagnosed with leukemia 2 months ago, last oral chemotherapy today. Has been having shortness of breath since 3 weeks prior to leukemia diagnosis.Completed 7 days of IV chemo and3 weeks of oral chemo. Has been having thrombocytopenia, has platelet infusions 2 times. Patient denies chills, chest pain, nausea, vomiting, and diarrhea. MAIN ED NOTE//Deepak Chand MD: I assumed full responsibility for this patient after transfer to Main ED from [facility]. I personally performed my own history, ROS, and physical. 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 Reports that he has been having worsening shortness of breath since his recent leukemia diagnosis 2 months ago. In his timeframe has completed 7 days of IV chemo in 3 weeks of oral chemo. Knows that he has been having progressive thrombocytopenia requiring platelet infusions twice. Talked with chemical production engineer BMT service who advisedhim based on his low-grade fever worsening petechiae headaches and cough to presenting to the emergency department for workup for potential infection and treatment as needed. History provided by: Patient service car driver used: No Patient History Medical History[1] Surgical History[2] Family History[3] Social History[4] Allergies: Allergies[5] Physical Exam ED Triage Vitals [11/03/24 1246] Temp Heart Rate Resp BP 37.1 ??C (98.7 ??F) 86 18 132/68 SpO2 Temp Source Heart Rate Source Patient Position 97 % Oral -- -- BP Location FiO2 (%) -- -- Physical Exam Constitutional: General: He is not in acute distress. HENT: Head: Normocephalic. Comments: No facial swelling Mouth/Throat: Mouth: Mucous membranes are moist. Pharynx: Oropharynx is clear. Cardiovascular: Rate and Rhythm: Normal rate. Pulmonary: Effort: Pulmonary effort is normal. No respiratory distress. Breath sounds: Normal air entry. No decreased breath sounds or wheezing. Comments: Speaking full sentences. Symmetric chest rise Chest: Chest wall: No tenderness or crepitus. Abdominal: General: There is no distension. Musculoskeletal: General: No deformity. Normal range of motion. Cervical back: Normal range of motion. Comments: Atraumatic, moves all extremities spontaneously Skin: General: Skin is warm. Findings: Petechiae present. Comments: Petechiae of BLE Neurological: Mental Status: He is alert. Mental status is at baseline. Comments: Awake Psychiatric: Behavior: Behavior normal. [place] Coma Scale Score: 15 ED Course & [facility] Date: 11/03/2024 Scribe Attestation: This note was dictated to me, Alyse Lowry, acting as a scribe for Dr. Diana Jensen. Attending Attestation: The documentation was recorded by Alyse Lowry acting as scribe in my presence at the time of the encounter and accurately reflects the service I personally performed. - Assessment: 69 y.o. male presents to ED with complaint of SOA, fever, petechiae. 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 This complicates the clinical picture because it Comorbidities: may be exacerbating symptoms, increases the amount and complexity of data to be reviewed, complicates the clinical workup, and increases the risk for morbidity Differential Diagnosis: thrombocytopenia, anemia, infection, neutropenic fever, pneumonia, infection, progression of disease In order to fully explore the differential diagnosis the following treatments and tests were ordered: All Other Orders Ordered Status Ordering Provider 11/03/24 1735 Initiate neutropenic isolation Continuous Comments: Added via Instant Order OPA Acknowledged BPA, INSTANT ORDERS 11/03/24 1730 Morphology Once Final result DIANA JENSEN 11/03/24 1531 Prepare Leukocyte Reduced RBC: 1 Units Blood - Once Placed in And Linked Group Final result EDEPAK CHAND 11/03/24 1531 Prepare Leukocyte Reduced Platelets: 1 Units Blood - Once Placed in And Linked Group Final result DEEPAK CHAND 11/03/24 1531 Transfuse platelets Transfusion Placed in And Linked Group Final result DEEPAK CHAND 11/03/24 1531 Transfuse RBC Transfusion Placed in And Linked Group Final result DEEPAK CHAND 11/03/24 1523 Initiate contact isolation Continuous Comments: Added via Instant Order OPA Acknowledged BPA, INSTANT ORDERS 11/03/24 1523 Initiate droplet isolation Continuous Comments: Added via Instant Order OPA Acknowledged BPA, INSTANT ORDERS 11/03/24 1417 Nasopharyngeal Respiratory Panel Once Final result DIANA JENSEN C 11/03/24 1417 Cardiac monitoring Until discontinued Acknowledged DIANA JENSEN C 11/03/24 1416 Type and screen Start now Final result DIANA JENSEN C 11/03/24 1416 Lactic acid, venous STAT Final result DIANA JENSEN C 11/03/24 1416 XR Chest 1 View One time imaging Final result DIANA JENSEN C 11/03/24 1416 Insert peripheral IV Once Acknowledged DIANA JENSEN C 11/03/24 1416 CMP STAT Final result DIANA JENSEN C 11/03/24 1416 CBC w/diff STAT Final result DIANA JENSEN C 11/03/[address] Head wo IV Contrast Once Final result DIANA JENSEN C 11/03/24 1416 Urinalysis with reflex microscopic AND reflex culture (IF UTI SUSPECTED) STAT In process DIANA JENSEN C 11/03/24 1416 Urinalysis with reflex microscopic (Culture NOT Included) PROCEDURE ONCE Final result DIANA JENSEN C 11/03/24 1416 Urine Cross Panel PROCEDURE ONCE In process CHIKI JENSENCA C 11/03/24 1416 Blood Culture (Aerobic/Anaerobet Set) STAT Preliminary result DIANA JENSEN C 11/03/24 1416 Blood Culture (Aerobic/Anaerobet Set) STAT Preliminary result DIANA JENSEN C 11/03/24 1246 EKG now - STAT (adult) Once Preliminary result MISTY BEARDEN ED Course as of 11/03/24 1758 SunNov 03, 2024 145 Patient presents to the emergency department for evaluation of fatigue and shortness of breath. Notes that he has been having worsening symptoms for the past 2 weeks as well as new petechiae in the setting of his thrombocytopenia and acute myeloid leukemia. Discussed his presentation with his medical oncology team who advised him to come to the emergency department for concerns of neutropenic fever and need for transfusions [KS] 1457 Examination, he was in no acute distress, hemodynamically stable and afebrile. He does have noticeable petechiae of the bilateral lower extremities. He was clear to auscultation bilaterally [KS] 1458 WBC(!!): 1.17 Leukopenic, worse compared to check in clinic last week [KS] 1458 Hemoglobin(!): 7.0 Worsening anemia, very symptomatic will consent for transfusion. [KS] 1458 Platelets severely low and contributing to petechiae, easy nose bleeds. Will transfuse. [KS] 1458 ABO/Rh: O Negative [KS] 1531 Consented for 1u prbcs and platelet transfusions [KS] 1550 EKG now - STAT (adult) Personally reviewed and interpreted by me. No ST or T-wave abnormality. No segment prolongation [KS] 1550 CT Head wo IV Contrast Personally reviewed. No acute findings [KS] 1640 XR Chest 1 View IMPRESSION: Unremarkable chest examination. [KS] 1728 Platelet Count(!!): 12 Was given transfusion [KS] 1728 Discussed care with BMT chemical production engineer. No acute indication for admission based on HDS, afebrile presentation. Will continue transfusions and discharge pending micro [KS] 1757 Reassessed. Patient endorses extreme improvement in his symptomatic anema. Based on improved symptoms will discharge. Advised to return if symptoms return or develops fever [KS] ED Course User Index [KS] Deepak Chand MD Clinical Impressions as of 11/03/24 1758 Symptomatic anemia Thrombocytopenia (CMS/HCC) Neutropenia, unspecified type (CMS/HCC) Social Determinates of Health Risks (including Economic Stability, Education and level of understanding, Healthcare access and quality and concerning social factors): None identified on this visit Ultimately, this patient was Was discharged Home (Discharge) The primary encounter diagnosis was Symptomatic anemia. Diagnoses of Thrombocytopenia (CMS/HCC) and Neutropenia, unspecified type (CMS/HCC) were also pertinent to this visit. . Patient was counseled on the diagnoses. Discharge medications if any are listed below. Listed medications are thought be either curative for listed diagnoses or will help control ongoing symptoms. Patient is requested to follow up with Patient's Primary Care Provider and Hematology/Oncology in order to obtainroutine follow-up, specialty care, and further diagnostic testing. Instructions on follow up as well as precautions to return to the ER provided verbally by the EM provider, as well as written in patients discharge education packet. ED Prescriptions None Discharge Instructions Please return to ED if your symptoms worsen, change in location, change in severity, new symptoms develop or if you become concerned for your health. Please return if you develop a fever of 100.4. Disposition Discharge - [1] Past Medical History: Diagnosis Date Arteriosclerotic cardiovascular disease Chronic stable angina (CMS/HCC) Hypertension [2] Past Surgical History: Procedure Laterality Date TOTAL KNEE ARTHROPLASTY Right after broken patella [3] Family History Problem Relation Name Age of Onset Diabetes Other Heart attack Other [4] Tobacco Use Smoking status: Every Day Average packs/day: 1.5 packs/day for 15.0 years (22.5 ttl pk-yrs) Types: Cigarettes Start date: 1994 Passive exposure: Current Smokeless tobacco: Never Vaping Use Vaping status: Never Used Substance Use Topics Alcohol use: Yes Alcohol/week: 6.0 standard drinks of alcohol Types: 6 Cans of beer per week Drug use: Never [5] No Known Allergies Deepak Chand MD Resident 11/03/24 6032 Cosigned by Misty Bearden MD at 11/07/2024 2:02 AM EDT Associated attestation - Misty Bearden MD - 11/07/2024 2:02 AM EDT I saw and evaluated the patient with the resident/fellow. I discussed the case with the resident/fellow and agree with the findings and plan as documented. * ED Triage Notes - Keiry Og RN - 11/03/2024 12:42 PM EDT Headache, SOA, Fever, nosebleed documented in this encounter Plan of Treatment Upcoming Encounters Date Type Department Care Team (Late st Contact Info) Description 01/06/2025 8:30 AM EDT Clinical Support [facility] Hematology/BMT and Cellular Therapy Program [address] [address] 01/06/2025 9:00 AM EDT Procedure Visit [facility]ology/BMT and Cellular Therapy Program [address] [phone] Kierra Novak, LEAK INSPECTOR [address] [facility] [address] [place] [phone] 01/13/2025 9:30 AM EDT Clinical Support [facility] Hematology/BMT and Cellular Therapy Program [address] [address] 01/13/2025 10:00 AM EDT Office Visit [facility] Hematology/BMT and Cellular Therapy Program [address] [phone] Isaura Wynn, LEAK INSPECTOR [address] [facility] [address] [place] [phone] 01/13/2025 11:30 AM EDT Appointment [facility] [address] [place] [phone] 01/14/2025 2:00 PM EDT Appointment [facility] [address] [place] [address] 01/15/2025 2:00 PM EDT Appointment [facility] [address] [place] [address] 01/16/2025 2:00 PM EDT Appointment [facility] [address] [place] [phone] 01/17/2025 2:00 PM EDT Appointment [facility] [address] [place] [address] 01/18/2025 2:00 PM EDT Appointment [facility] [address] [place] [address] 01/19/2025 2:00 PM EDT Appointment [facility] [address] [place] [address] 03/10/2025 11:20 AM EDT Office Visit [facility] Head, Neck & Respiratory 800 [facility], [address] [place] [address] Elsa Razo, LEAK INSPECTOR [address] [place] [address] documented as of this encounter Procedures Procedure Name Priority Date/Time Associated Diagnosis Comments TRANSFUSE PLATELETS STAT 11/03/2024 5 :00 PM EDT URINALYSIS WITH REFLEX MICROSCOPIC AND CULTURE STAT 11/03/2024 4:05 PM EDT URINE CROSS PANEL STAT 11/03/2024 4:05 PM EDT URINALYSIS WITH REFLEX MICROSCOPIC STAT 11/03/2024 4:05 PM EDT TRANSFUSE RED BLOOD CELLS STAT 11/03/2024 3:[address] HEAD WO IV CONTRAST STAT 3:35 PM EDT PREPARE PLATELETS STAT 11/03/2024 3:3 2 PM EDT PREPARE RBC STAT 11/03/2024 3:32 PM EDT BLOOD CULTURE (AEROBIC/ANAEROBIC SET) STAT 11/03/2024 3:24 PM EDT XR CHEST 1 VIEW STAT 11/03/2024 3:00 PM EDT NASOPHARYNGEAL RESPIRATORY PANEL STAT 11/03/2024 2:59 PM EDT BLOOD CULTURE (AEROBIC/ANAEROBIC SET) STAT 11/03/2024 2:59 PM EDT MORPHOLOGY STAT 11/03/2024 2:25 PM EDT EXCEPTION TO STANDARD PRACTICE, PATHOLOGIST INTERPRETATION Routine 11/03/2024 2:25 PM EDT LACTATE, VENOUS STAT 11/03/2024 2:25 PM EDT CBC WITH AUTO DIFFERENTIAL STAT 11/03/2024 2:25 PM EDT TYPE AND SCREEN STAT 11/03/2024 2:25 PM EDT COMPREHENSIVE METABOLIC PANEL, PLASMA STAT 11/03/2024 2:25 PM EDT ECG ADULT STAT 11/03/2024 12:50 PM EDT documented in this encounter Results * Transfuse platelets (11/03/2024 5:32 PM EDT) Misty Bearden MD BLOOD TRANSFUSION ORDERABLE S Final Result * Transfuse platelets: 1 Units (11/03/2024 5:32 PM EDT) Misty Bearden MD BLOOD TRANSFUSION ORDERABLE S Final Result * Transfuse RBC (11/03/2024 4:34 PM EDT) Misty Bearden MD BLOOD TRANSFUSION ORDERABLE S Final Result * Transfuse RBC: 1 Units (11/03/2024 4:34 PM EDT) Misty Bearden MD BLOOD TRANSFUSION ORDERABLE S Final Result * Urine Cross Panel (11/03/2024 4:05 PM EDT) Extra Reflex urine culture not indicated 11/04/2024 2:02 AM EDT [facility] Comment: Previously prelim verified as Specimen evaluation in progress on 11/03/2024 at 1901 EDT. Previously prelim verified as Specimen evaluation in progress on 11/03/2024 at 2001 EDT. Previously prelim verified as Specimen evaluation in progress on 11/03/2024 at 2101 EDT. Previously prelim verified as Specimen evaluation in progress on 11/03/2024 at 2201 EDT. Previously prelim verified as Specimen evaluation in progress on 11/03/2024 at 2301 EDT. Previously prelim verified as Specimen evaluation in progress on 11/04/2024 at 0002 EDT. Previously prelim verified as Specimen evaluation in progress on 11/04/2024 at 0104 EDT. Urine Urine specimen obtained by clean catch procedure / Unknown Non-blood Collection / Unknown 11/03/2024 4:05 PM EDT 11/03/2024 5:08 PM EDT us Diana Jensen MD LAB URINE ORDERABLES Final R esult [facility] [address] [place] [address] * (ABNORMAL) Urinalysis with reflex microscopic (Culture NOT Included) (11/03/2024 4:05 PM EDT) Color, Urine Yellow LAB URINALYSIS - AUTOMATED METHOD 11/03/2024 4:23 PM EDT [facility] Clarity, Urine Clear LAB URINALYSIS - AUTOMATED METHOD 11/03/2024 4:23 PM EDT [facility] Spec [place], Urine 1.018 1.005 - 1.030 LAB URINALYSIS - AUTOMATED METHOD 11/03/2024 4:23 PM EDT [facility] pH, Urine 6.5 5.0 - 8.0 LAB URINALYSIS - AUTOMATED METHOD 11/03/2024 4:23 PM EDT [facility] Protein, Urine 30(A) Negative mg/dL LAB URINALYSIS - AUTOMATED METHOD 11/03/2024 4:23 PM EDT [facility] Glucose, Urine Negative Negative mg/dL LAB URINALYSIS - AUTOMATED METHOD 11/03/2024 4:23 PM EDT [facility] Ketones, Urine Negative Negative mg/dL LAB URINALYSIS - AUTOMATED METHOD 11/03/2024 4:23 PM EDT [facility] Blood, Urine Negative Negative LAB URINALYSIS - AUTOMATED METHOD 11/03/2024 4:23 PM EDT [facility] Bilirubin, Urine Negative Negative LAB URINALYSIS - AUTOMATED METHOD 11/03/2024 4:23 PM EDT [facility] Urobilinogen, Urine 2.0(A) 0.2 to 1.0 mg/dL LAB URINALYSIS - AUTOMATED METHOD 11/03/2024 4:23 PM EDT [facility] Leukocytes, Urine Negative Negative LAB URINALYSIS - AUTOMATED METHOD 11/03/2024 4:23 PM EDT [facility] Nitrite, Urine Negative Negative LAB URINALYSIS - AUTOMATED METHOD 11/03/2024 4:23 PM EDT [facility] Urine Urine specimen obtained by clean catch procedure / Unknown Non-blood Collection / Unknown 11/03/2024 4:05 PM EDT 11/03/2024 4:17 PM EDT us Diana Jensen MD LAB URINE ORDERABLES Final R esult [facility] [address] [place] [address] * CT Head wo IV Contrast (11/03/2024 3:35 PM EDT) Anatomical Region Laterality Modality Head Computed Tomogra phy Impressions 11/03/2024 4:09 PM EDT No acute intracranial abnormality. CRITICAL RESULT: No. COMMUNICATION: Per this written report. Drafted by Beny Ricketts MD on 11/03/2024 4:00 PM Final report signed by Beny Ricketts MD on 11/03/2024 4:09 PM Narrative 11/03/2024 4:09 PM EDT CLINICAL INDICATION: Headache, fever TECHNIQUE: Spiral axial CT images of the head were obtained without contrast administration. Total DLP (Dose-Length Product): 703.15 mGy.cm. Please note: The reported value represents the total of one or more individual components during the CT acquisition on this date and at this time, and as such, the same value may appear in more than one CT report depending on the interpreting/reporting physicians. COMPARISON: Head CT October 20, 2024 FINDINGS: Diagnostic Quality: Adequate. The ventricles and sulci are normal in size. There is no acute large cortical infarct, intracranial hemorrhage or large mass on this noncontrast study. There is a mild amount of non-specific but likely ischemic white matter lesions. Soft Tissues: No significant soft tissue swelling is present. Skull: There are no calvarial destructive lesions or fractures. Sinuses and Mastoids: The visualized portions of the paranasal sinuses are clear. The mastoid air cells are clear. Procedure Note Beny Ricketts MD - 11/03/2024 CLINICAL INDICATION: Headache, fever TECHNIQUE: Spiral axial CT images of the head were obtained without contrastadministration. Total DLP (Dose-Length Product): 703.15 mGy.cm. Please note: The reportedvalue represents the total of one or more individual components during theCT acquisition on this date and at this time, and as such, the same valuemay appear in more than one CT report depending on theinterpreting/reporting physicians. COMPARISON: Head CT October 20, 2024 FINDINGS: Diagnostic Quality: Adequate. The ventricles and sulci are normal in size. There is no acute large cortical infarct, intracranial hemorrhage or largemass on this noncontrast study. There is a mild amount of non-specific butlikely ischemic white matter lesions. Soft Tissues: No significant soft tissue swelling is present. Skull: There are no calvarial destructive lesions or fractures. Sinuses and Mastoids: The visualized portions of the paranasal sinuses areclear. The mastoid air cells are clear. IMPRESSION: No acute intracranial abnormality. CRITICAL RESULT: No. COMMUNICATION: Per this written report. Drafted by Beny Ricketts MD on 11/03/2024 4:00 PM Final report signed by Beny Ricketts MD on 11/03/2024 4:09 PM Diana Jensen MD IMG CT PROCEDURES Final Resu lt * Prepare Leukocyte Reduced Platelets: 1 Units (11/03/2024 3:32 PM EDT) Product Code [id number] BLOO D BANK Dispense Status Transfused BLOOD BANK Blood Expiration Date [id number] BLOOD BANK Unit Number [id number] CH B LOOD BANK Product Blood Type 6200 BLOOD BANK Blood Type A+ BLOOD BANK Blood Venous blood specimen / Unknown Misty Bearden MD BLOOD BANK PRODUCT ORDERABL ES Final Result Performing Organization Address [facility] Co de Phone Number BLOOD BANK [address] [place] [address], * Prepare Leukocyte Reduced RBC: 1 Units (11/03/2024 3:32 PM EDT) Product Code [id number] CH BLOO D BANK Dispense Status Transfused BLOOD BANK Blood Expiration Date [id number] BLOOD BANK Unit Number [id number] CH B LOOD BANK Product Blood Type 9500 BLOOD BANK Blood Type O- BLOOD BANK Crossmatch Compatible BLOOD BANK Other Misty Bearden MD BLOOD BANK PRODUCT ORDERABL ES Final Result Performing Organization Address [facility] de Phone Number BLOOD BANK [address] [place] [address], [place] * Blood Culture (Aerobic/Anaerobet Set) (11/03/2024 3:24 PM EDT) Culture No growth at day 5 11/08/2024 4:01 PM EDT [facility] Blood Structure of antecubital vein / Unknown Venipuncture / Unknown 11/03/2024 3:24 PM EDT 11/03/2024 3:47 PM EDT Narrative [facility] - 11/08/2024 4:01 PM EDT Low blood volume submitted, results may be compromised Diana Jensen MD LAB MICROBIOLOGY - GENERAL O RDERABLES Final Result Performing Organization Address City/[facility]/ZIP Co de Phone Number [facility] [address] [place] [address] * XR Chest 1 View (11/03/2024 3:00 PM EDT) Anatomical Region Laterality Modality Chest Digital Radiogra phy Impressions 11/03/2024 4:27 PM EDT Unremarkable chest examination. CRITICAL RESULT: No. COMMUNICATION: Per this written report. Drafted by Hernandez Cotter MD on 11/03/2024 4:26 PM Final report signed by Hernandez Cotter MD on 11/03/2024 4:27 PM Narrative 11/03/2024 4:27 PM EDT CLINICAL INDICATION: soa TECHNIQUE: XR CHEST 1 VIEW COMPARISON: None. FINDINGS: Lungs are clear. Heart and mediastinal contours are within normal limits. No pneumothorax. No pleural effusion. Bony structures are unremarkable. Procedure Note Hernandez Cotter MD - 11/03/2024 CLINICAL INDICATION: soa TECHNIQUE: XR CHEST 1 VIEW COMPARISON: None. FINDINGS: Lungs are clear. Heart and mediastinal contours are within normal limits.No pneumothorax. No pleural effusion. Bony structures are unremarkable. IMPRESSION: Unremarkable chest examination. CRITICAL RESULT: No. COMMUNICATION: Per this written report. Drafted by Hernandez Cotter MD on 11/03/2024 4:26 PM Final report signed by Hernandez Cotter MD on 11/03/2024 4:27 PM us Diana Jensen MD IMG XR PROCEDURES Final Resu lt * Nasopharyngeal Respiratory Panel (11/03/2024 2:59 PM EDT) Nasopharyngeal Respiratory PCR Interpretation Not Detected for all analytes Not Detected for all analytes 11/03/2024 5:17 PM EDT [facility] Swab Nasopharyngeal structure / Unknown Non-blood Collection / Unknown 11/03/2024 2:59 PM EDT 11/03/2024 3:17 PM EDT Narrative [facility] - 11/03/2024 5:17 PM EDT This assay can detect Adenovirus, Coronavirus, Human Metapneumovirus, Human Rhino/Enterovirus, Influenza A, Influenza A H1, Influenza A H1 2009, Influenza A H3, Influenza B, Parainfluenza Virus 1, Parainfluenza Virus 2, Parainfluenza Virus 3, Parainfluenza Virus 4, Respiratory Syncytial Virus A, Respiratory Syncytial Virus B, Chlamydia pneumoniae, and Mycoplasma pneumoniae. Note: This assay does NOT detect SARS/CoV, novel Coronavirus 2019-nCoV, Bordetella pertussis or Bordetella parapertussis. Nasopharyngeal Respiratory PCR Panel is performed using the [employer] ePlex instrument. This test is FDA approved for use with Nasopharyngeal swabs only. This test is used for clinical purposes. It should not be regarded as investigational or for research. The [facility] is certified under the Clinical Laboratory Improvement Amendments of 1988 (CLIA-88) as qualified to perform high complexity clinical laboratory testing. Diana Jensen MD LAB MICROBIOLOGY - GENERAL O RDERABLES Final Result Performing Organization Address City/[facility]/[place] [address] * Blood Culture (Aerobic/Anaerobet Set) (11/03/2024 2:59 PM EDT) Culture No growth at day 5 11/08/2024 4:01 PM EDT [facility] Blood Structure of left wrist region / Unknown Venipuncture / Unknown 11/03/2024 2:59 PM EDT 11/03/2024 3:18 PM EDT Narrative [facility] - 11/08/2024 4:01 PM EDT Low blood volume submitted, results may be compromised Diana Jensen MD LAB MICROBIOLOGY - GENERAL O RDERABLES Final Result Performing Organization Address [facility] de Phone Number [facility] [address] [place] [address] * Exception to Standard Practice, Pathologist Interpretation (11/03/2024 2:25 PM EDT) Clinical Diagnosis, Exception to Standard Practice thrombocytopenia 11/04/2024 10:44 AM EDT BLOOD BANK Interpretation , Exception to Standard Practice Your patient, who is RhD-negative, required transfusion of 1 unit of apheresis platelets on 11/03/24. Considering the available inventory and the necessity of the transfusion, RhD-positive platelets were transfused. This was deemed to be in the best interest of the patient at the time of transfusion. Currently, the risk of alloimmunization to the D antigen from a single donor (apheresis) platelet is very low, particularly in hospitalized and/or immunocompromised patients. Administration of Rh(D) Immune Globulin for the suppression of Rh isoimmunization may be considered, if clinically indicated. 11/04/2024 10:44 AM EDT BLOOD BANK Pathologist Signature, Exception to Standard Practice Reviewed by: Jakob Granados MD 11/04/2024 10:44 AM EDT [facility] LAB CP ASR DISCLAIMER No 11/04/2024 10:44 AM EDT BLOOD [facility]ANK Blood Venous blood specimen / Unknown Venipuncture / Unknown 11/03/2024 2:25 PM EDT 11/03/2024 2:31 PM EDT us Juwan Horton MD LAB BLOOD BANK TEST ORDERAB LES Final Result BLOOD BANK [address] [place] [address], * (ABNORMAL) Morphology (11/03/2024 2:25 PM EDT) RBC Fragments/Schi stocytes Slight(A) (none) LAB HEMATOLOGY METHOD 11/03/2024 5:30 PM EDT [facility] Elliptocytes/O valocytes Present LAB HEMATOLOGY METHOD 11/03/2024 5:30 PM EDT [facility] RBC Morphology Slide Reviewed LAB HEMATOLOGY METHOD 11/03/2024 5:30 PM EDT [facility] Platelet Estimate Platelet smear estimate consistent with automated count LAB HEMATOLOGY METHOD 11/03/2024 5:30 PM EDT [facility] Blood Venous blood specimen / Unknown Venipuncture / Unknown 11/03/2024 2:25 PM EDT 11/03/2024 2:28 PM EDT us Diana Jensen MD LAB BLOOD ORDERABLES Final R esult [facility] [address] [place] [address] * Lactic acid, venous (11/03/2024 2:25 PM EDT) Lactate, Venous, Whole Blood 0.9 0.5 - 2.2 mmol/L LAB HEMATOLOGY METHOD 11/03/2024 2:38 PM EDT [facility] Blood Venous blood specimen / Unknown Venipuncture / Unknown 11/03/2024 2:25 PM EDT 11/03/2024 2:36 PM EDT Diana Jensen MD LAB BLOOD ORDERABLES Final R esult Performing Organization Address [facility]/ZIP Co de Phone Number [facility] [address] [place] [address] * Type and screen (11/03/2024 2:25 PM EDT) Pathologist [facility] ABO/Rh O Negative 11/03/2024 2:16 PM EDT BLOOD BANK Antibody Screen Negative 11/03/2024 2:16 PM EDT BLOOD BANK Specimen Expiration 11/06/2024 23:59 11/03/2024 2:16 PM EDT BLOOD BANK Blood Venous blood specimen / Unknown Venipuncture / Unknown 11/03/2024 2:25 PM EDT 11/03/2024 2:31 PM EDT Diana Jensen MD LAB BLOOD BANK TEST ORDERABL ES Final Result Performing Organization Address [facility] Co de Phone Number BLOOD BANK [address] [place] [address], * (ABNORMAL) CBC w/diff (11/03/2024 2:25 PM EDT) WBC Count 1.17(LL) 3.70 - 10.30 10*3/uL LAB HEMATOLOGY METHOD 11/03/2024 5:30 PM EDT [facility] RBC Count 1.87(L) 4.60 - 6.10 10*6/uL LAB HEMATOLOGY METHOD 11/03/2024 5:30 PM EDT [facility] HGB 7.0(L) 13.7 - 17.5 g/dL LAB HEMATOLOGY METHOD 11/03/2024 5:30 PM EDT [facility] HCT 19.2(LL) 40.0 - 51.0 % LAB HEMATOLOGY METHOD 11/03/2024 5:30 PM EDT [facility] Platelet Count 12(LL) 155 - 369 10*3/uL LAB HEMATOLOGY METHOD 11/03/2024 5:30 PM EDT [facility] MCV 103(H) 79 - 98 fL LAB HEMATOLOGY METHOD 11/03/2024 5:30 PM EDT [facility] MCH 37.4(H) 26.0 - 32.0 pg LAB HEMATOLOGY METHOD 11/03/2024 5:30 PM EDT [facility] MCHC 36.5(H) 30.7 - 35.5 g/dL LAB HEMATOLOGY METHOD 11/03/2024 5:30 PM EDT [facility] RDW 18.6(H) 11.5 - 14.5 % LAB HEMATOLOGY METHOD 11/03/2024 5:30 PM EDT [facility] MPV LAB HEMATOLOGY METHOD 11/03/2024 5:30 PM EDT [facility] Comment:Not Measured nRBC 0.0 <=0.0 per 100 WBCs LAB HEMATOLOGY METHOD 11/03/2024 5:30 PM EDT [facility] Differential Type Automated LAB HEMATOLOGY METHOD 11/03/2024 5:30 PM EDT [facility] Neutrophils % 42 % LAB HEMATOLOGY METHOD 11/03/2024 5:30 PM EDT [facility] Lymphocytes % 49 % LAB HEMATOLOGY METHOD 11/03/2024 5:30 PM EDT [facility] Monocytes % 8 % LAB HEMATOLOGY METHOD 11/03/2024 5:30 PM EDT [facility] Eosinophils % 0 % LAB HEMATOLOGY METHOD 11/03/2024 5:30 PM EDT [facility] Basophils % 0 % LAB HEMATOLOGY METHOD 11/03/2024 5:30 PM EDT [facility] Immature Granulocytes % 1 % LAB HEMATOLOGY METHOD 11/03/2024 5:30 PM EDT [facility] Neutrophils Absolute 0.47(LL) 1.60 - 6.10 10*3/uL LAB HEMATOLOGY METHOD 11/03/2024 5:30 PM EDT [facility] Lymphocytes Absolute 0.56(L) 1.20 - 3.90 10*3/uL LAB HEMATOLOGY METHOD 11/03/2024 5:30 PM EDT [facility] Monocytes Absolute 0.09(L) 0.30 - 0.90 10*3/uL LAB HEMATOLOGY METHOD 11/03/2024 5:30 PM EDT [facility] Eosinophils Absolute 0.00 0.00 - 0.50 10*3/uL LAB HEMATOLOGY METHOD 11/03/2024 5:30 PM EDT [facility] Basophils Absolute 0.00 0.00 - 0.10 10*3/uL LAB HEMATOLOGY METHOD 11/03/2024 5:30 PM EDT [facility] Immature Granulocytes Absolute 0.01 0.00 - 0.06 10*3/uL LAB HEMATOLOGY METHOD 11/03/2024 5:30 PM EDT [facility] Blood Venous blood specimen / Unknown Venipuncture / Unknown 11/03/2024 2:25 PM EDT 11/03/2024 2:28 PM EDT Narrative [facility] - 11/03/2024 5:30 PM EDT Therapeutic decision making should be based on absolute values, rather than percentages. us Diana Jensen MD LAB BLOOD ORDERABLES Final R esult [facility] [address] [place] [address] * (ABNORMAL) CMP (11/03/2024 2:25 PM EDT) Glucose, Plasma 102(H) 74 - 99 mg/dL 11/03/2024 3:15 PM EDT [facility] BUN, Plasma 10 8 - 23 mg/dL 11/03/2024 3:15 PM EDT [facility] Creatinine, Plasma 1.00 0.70 - 1.20 mg/dL 11/03/2024 3:15 PM EDT [facility] BUN/Creatinine Ratio 10 11/03/2024 3:15 PM EDT [facility] Sodium, Plasma 142 136 - 145 mmol/L 11/03/2024 3:15 PM EDT [facility] Potassium, Plasma 3.9 3.6 - 4.9 mmol/L 11/03/2024 3:15 PM EDT [facility] Chloride, Plasma 108(H) 97 - 107 mmol/L 11/03/2024 3:15 PM EDT [facility] CO2, Plasma 21(L) 22 - 29 mmol/L 11/03/2024 3:15 PM EDT [facility] Anion Gap 13 6 - 16 mmol/L 11/03/2024 3:15 PM EDT [facility] Total Calcium, Plasma 9.2 8.9 - 10.2 mg/dL 11/03/2024 3:15 PM EDT [facility] Total Protein 7.3 6.3 - 7.9 g/dL 11/03/2024 3:15 PM EDT [facility] Albumin, Plasma 4.2 3.5 - 5.2 g/dL 11/03/2024 3:15 PM EDT [facility] AST, Plasma 36 10 - 50 U/L 11/03/2024 3:15 PM EDT [facility] ALT, Plasma 37 10 - 50 U/L 11/03/2024 3:15 PM EDT [facility] Alkaline Phosphatase, Plasma 61 40 - 115 U/L 11/03/2024 3:15 PM EDT [facility] Total Bilirubin, Plasma 0.6 0.2 - 1.1 mg/dL 11/03/2024 3:15 PM EDT [facility] eGFRcr 81.5 mL/min/1.7 3m*2 11/03/2024 3:15 PM EDT [facility] Comment:Reported eGFRcr in m L/min/1.73m2 is based the CKD-EPI 2020 equation that does not use a race coefficient. Blood Venous blood specimen / Unknown Venipuncture / Unknown 11/03/2024 2:25 PM EDT 11/03/2024 2:28 PM EDT us Diana Jensen MD LAB BLOOD ORDERABLES Final R esult [facility] [address] [place] [address] * EKG now - STAT (adult) (11/03/2024 12:50 PM EDT) EKG DIAGNOSIS CLASS Normal MUSE ECG Ventricular Rate 82 BPM MUSE ECG Atrial Rate 82 BPM MUSE ECG IN Interval 166 ms MUSE ECG QRSD Interval 88 ms MUSE ECG QT Interval 382 ms MUSE ECG QTC Interval 446 ms MUSE ECG P Mcl[place] 56 degrees MUSE ECG R [place] 52 degrees MUSE ECG T Wave Mcl[place] 54 degrees MUSE ECG Diagnosis Normal sinus rhythm MUSE ECG Diagnosis Normal ECG MUSE ECG Diagnosis MUSE ECG Diagnosis MUSE ECG Diagnosis Confirmed by Ever Gallagher ([id number]) on 11/04/2024 5:13:12 AM MUSE ECG 11/03/2024 12:5 0 PM EDT 11/04/2024 5:13 AM EDT us Misty Bearden MD ECG ORDERABLES Final Resul t MUSE ECG documented in this encounter Visit Diagnoses Diagnosis Symptomatic anemia- Primary Thrombocytopenia (CMS/HCC) Unspecified thrombocytopenia Neutropenia, unspecified type (CMS/HCC) documented in this encounter Additional Health Concerns Infection Onset Date Last Indicated Resolved Time Respiratory Rule-Out 11/03/2024 11/03/2024 025 5:17 PM EDT Assessment Noted Time PHQ-9 Depression Total Score: 0 09/11/19 25 9:15 AM EST A fall risk assessment has been complete d for the patient 10/26/2024 1:33 PM EDT A Body Mass Index follow-up plan has been documented for the patient 10/26/2024 3:32 PM EDT documented as of this encounter Care Teams [employer] Relationship Specialty Start Date End Date Zhao Harris MD [address] [place] [address] PCP - General 12/03/20 documented as of this encounter
--- OUTSIDE RECORDS SUMMARY | 2024-11-05 10:00 | XMS_ITS | Encounter Summary ---
Author Organization [facility] Address [address] [place] [address] Care Team Providers Care Insulation Board Back Tender Name Role Phone Zhao Harris MD Primary Care Provider + [phone] Reason for Visit * Reason Comments Follow-up Pre BMT Cardiac Risk Assessment * Consultation (Urgent) - Closed Specialty Diagnoses / Procedures Referred By Justice mcgee Referred To Contact Hematology and Oncology Diagnoses Myelodysplasia (myelodysplastic syndrome) (CMS/HCC) Virgen Vargas MD 800 [facility] [address] [place] [phone] Phone: tel: fax: [facility] 800 [facility], [address]nd [place] [address] Phone: tel: fax: Referral ID Status Reason Start Date Expiration Date V isits Requested Visits Authorized [id number] Closed Specialty Services Required 10/13/2024 04/14/2026 1 1 Encounter Details Date Type Department Care Team (Late st Contact Info) Description 11/05/2024 10:00 AM EDT Office Visit [facility] [address] [facility], [address]nd [place] [address] Elsa Razo, ESTRELLA [address] [place] [address] Pre-transplant evaluation for stem cell transplant (Primary Dx); Myelodysplasia (myelodysplastic syndrome) (CMS/HCC); Dyspnea on exertion; Coronary artery disease involving [place] coronary artery of [place] heart without angina pectoris; Thrombocytopenia (CMS/HCC) Social History Tobacco Use Types Packs/Day Years Used Date Smoking Tobacco: Every Day Cigarettes 1.5 15 Started: 1994 Passive Smoke Exposure: Current Smokeless Tobacco: Never Tobacco Cessation:Ready to Q uit: Yes; Counseling Given: No Alcohol Use Standard Drinks/Week Comments Yes 6 [...] drink first t manav in the morning ([employer] SU[employer] SALES REPRESENTATIVE) to steady your nerves or to get rid of a hangover? 0 11/03/2024 CAGE Questionnaire Score 0 025 Sex and Gender Information Value Date Recorded Sex Assigned at Male 05/18/2023 9:35 AM EDT Legal Sex Male 7:29 PM EDT Gender Identity Male 05/18/2023 9:35 AM EDT Sexual Orientation Straight 05/18/2023 9 :35 AM EDT documented as of this encounter Last Filed Vital Signs Vital Sign Reading Time Taken Comments Blood Pressure 122/76 11/05/2024 9:55 AM EDT Pulse 93 11/05/2024 9:55 AM EDT Temperature - - Respiratory Rate 18 11/05/2024 9:55 AM EDT Oxygen Saturation 92% 11/05/2024 9:55 AM EDT Inhaled Oxygen Concentration - - Weight 91 kg (200 lb 9.9 oz) 11/05/2024 9:55 AM EDT Height - - Body Mass Index 31.42 11/03/2024 12:46 PM EDT documented in this encounter Miscellaneous Notes * Clinician Note - Ann-Marie Santiago RN - 11/05/2024 10:00 AM EDT CARDIO-ONCOLOGY SUMMARY REFERRING: Virgen Vargas MD CURRENT ONCOLOGY DIAGNOSIS: Myelodysplastic syndrome REASON FOR VISIT: Pre BMT/ abnormal stress test ONCOLOGY HISTORY: Mild thrombocytopenia 2019 Worsening labs prompting bone marrow 08/2024 Diagnosed with myelodysplastic syndrome 09/19/2024 Initiated Azacitidine and Venetoclax 10/20/2024 Planned allogeneic stem cell transplant RISK STRATIFICATION: CAD HLD Smoker HTN Age HHD (hypertensive heart disease) CARDIAC TESTING COMPLETED: Lexiscan 09/11/2024- EF 69%, small, moderate perfusion defect located in the distal inferior and apical myocardium with a reversible apical defect, abnormal nuclear stress test due to a reversible perfusion defect involving the distal left anterior descending artery territory. The defect is small, involving less than 5% of the overall LV myocardium Lexiscan 05/17/2023-normal nuclear stress test, normal myocardia perfusion, EF 65-69%, no ischemic changes occurred with stress CCTA 08/28/2019- Severe coronary calcification with an Agatston score = 154 moderate stenosis within the mid-LAD at the takeoff of the D1 branch. There is ostial D1 stenosis within the moderate range as well. 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 nicotine (Nicoderm CQ) 21 MG/24HR patch 1 patch, Transdermal, Every 24 hours nitroglycerin (NITROSTAT) 0.4 mg, Sublingual, Every 5 min PRN rosuvastatin (CRESTOR) 40 mg, Oral, Daily * Progress Notes - Elsa Razo Marquis, HANDSTITCHING MACHINE ARMHOLE FELLER - 11/05/2024 10:00 AM EDT Images from the original note were not included. Cardio-Oncology Clinic CC: Chief Complaint Patient presents with Follow-up Pre BMT Cardiac Risk Assessment HPI: Mr.Jerry Hernandez Lyons is a 69 y.o. male seen today in the Cardio-Oncology Clinic @ [facility] in consultation for pre BMT cardiovascular risk assessment with recent abnormal stress test at the request of Dr. Vargas Pt has been followed by Dr. Best in interventional cardiology. He was last seen by Louise Jain APRN on 09/11/24. I have personally reviewed office notes, results and recc's. 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 He most recently had a Lexiscan in 09/11/24 that showed a small reversible defect in the disal LAD involving less than 5% of the myocardium. He has been treated with medical management with improvement is symptoms. He has ongoing thrombocytopenia and has had multiple platelet infusions as of late. Pt reports that SOA improves after transfusions. He has not had any more chest pain He has had mor of a headache with initiation of Imdur but is tolerating it. Prior to his diagnosis of cancer he was doing what he wanted in terms of activity. 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 He had a nose bleed on Sunday morning. EKG 09/11/[address] NSR with no acute ST or T wave changes CARDIO-ONCOLOGY SUMMARY REFERRING: Virgen Vargas MD CURRENT ONCOLOGY DIAGNOSIS: Myelodysplastic syndrome REASON FOR VISIT: Pre BMT/ abnormal stress test ONCOLOGY HISTORY: Mild thrombocytopenia 2020 Worsening labs prompting bone marrow 08/2024 Diagnosed with myelodysplastic syndrome 09/19/2024 Initiated Azacitidine and Venetoclax 10/20/2024 Planned allogeneic stem cell transplant RISK STRATIFICATION: CAD HLD Smoker HTN Age HHD (hypertensive heart disease) CARDIAC TESTING COMPLETED: Lexiscan 09/11/2024- EF 69%, small, moderate perfusion defect located in the distal inferior and apical myocardium with a reversible apical defect, abnormal nuclear stress test due to a reversible perfusion defect involving the distal left anterior descending artery territory. The defect is small, involving less than 5% of the overall LV myocardium Lexiscan 05/17/2023-normal nuclear stress test, normal myocardia perfusion, EF 65-69%, no ischemic changes occurred with stress CCTA 08/28/2019- Severe coronary calcification with an Agatston score = 154 moderate stenosis within the mid-LAD at the takeoff of the D1 branch. There is ostial D1 stenosis within the moderate range as well. 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 nicotine (Nicoderm CQ) 21 MG/24HR patch 1 patch, Transdermal, Every 24 hours nitroglycerin (NITROSTAT) 0.4 mg, Sublingual, Every 5 min PRN rosuvastatin (CRESTOR) 40 mg, Oral, Daily Review of symptoms A 14 point review of systems was performed and otherwise negative except for which was noted in HPI Past Medical History: Medical History[1] Surgical History: Surgical History[2] Medications: Current Medications[3] Family History: family history includes Diabetes in an other family member; Heart attack in an other family member. Social History: reports that he has been smoking cigarettes. He started smoking about 30 years ago. He has a 22.5 pack-year smoking history. He has been exposed to tobacco smoke. He has never used smokeless tobacco.He reports current alcohol use of about 6.0 standard drinks of alcohol per week. He reports that hedoes not use drugs. Physical Exam: Visit Vitals BP 122/76 (BP Location: Right arm, Patient Position: Sitting) Pulse 93 Wt 91 kg (200 lb 9.9 oz) SpO2 92% BMI 31.42 kg/m?? Constitutional: Patient appears well; no acute distress; speaks without dyspnea Skin: No concerning lesions identified HENT: Anicteric JVP: no JVD Carotid: no bruit Cardiovascular: S1S2 heard, regular rate and rhythm; no murmur or gallop appreciated Pulmonary: Clear to auscultation bilaterally Abdominal: Soft; no tenderness; no hepatomegaly; positive bowel sounds Extremities: Warm and well perfused; no edema Neurological: Alert and oriented X 3; no focal deficits appreciated Psychiatric: Normal mood and behavior Cardiac Testing: ECG: normal sinus rhythm, no blocks or conduction defects, no ischemic changes Echocardiogram: Reviewed by Me Stress Tests: Reviewed by Me and Dr. Sow Imaging: No echocardiogram results found for the past 12 months Labs: Lab Results Component Value Date HGB 7.0 (L) 11/03/2024 HCT 19.2 (LL) 11/03/2024 PLT 12 (LL) 11/03/2024 CHOL 101 05/18/2022 TRIG 54 05/18/2022 HDL 50 05/18/2022 LDLCALC 40.2 05/18/2022 ALT 37 11/03/2024 AST 36 11/03/2024 NA 142 11/03/2024 K 3.9 11/03/2024 CREATININE 1.00 11/03/2024 BUN 10 11/03/2024 CO2 21 (L) 11/03/2024 TSH 1.02 10/20/2024 INR 1.0 09/29/2024 Lab Results Component Value Date GLUCOSE 102 (H) 11/03/2024 CALCIUM 9.2 11/03/2024 NA 142 11/03/2024 K 3.9 11/03/2024 CO2 21 (L) 11/03/2024 CL 108 (H) 11/03/2024 BUN 10 11/03/2024 CREATININE 1.00 11/03/2024 Lab Results Component Value Date WBC 1.17 (LL) 11/03/2024 HGB 7.0 (L) 11/03/2024 HCT 19.2 (LL) 11/03/2024 MCV 103 (H) 11/03/2024 PLT 12 (LL) 11/03/2024 Impression: Hugo was seen today for follow-up and pre bmt cardiac risk assessment . Diagnoses and all orders for this visit: Pre-transplant evaluation for stem cell transplant - ECG Adult (Now - Performed in your clinic) Myelodysplasia (myelodysplastic syndrome) (CMS/HCC) - Ambulatory referral to Cardiology-Oncology Dyspnea on exertion - N-Terminal Probnp, Plasma; Future Coronary artery disease involving [place] coronary artery of [place] heart without angina pectoris Thrombocytopenia (CMS/HCC) Plan: Orders Placed This Encounter Procedures N-Terminal Probnp, Plasma Standing Status: Future Number of Occurrences: 1 Expected Date: 11/05/2024 Expiration Date: 05/07/2026 [facility] Immediate ECG Adult (Now - Performed in your clinic) Reason for Exam:: pre transplant evaluation for stem cell transplant CAD --NMST 09/11/24 with small defect in the distal LAD recently started on Imdur with improvement in symptoms, being treated with medical management --Remote CT Chest for screening with CA score 1600 --Remote cor angio at OSH with tortuous LAD with moderate stenosis --2018 CCTA with FFR reviewed with pLAD with iFR 0.5 in the aneurysmal segment and LCx 0.75- trate --[id number]: SPECT images demonstrate a normal left ventricular cavity size with an estimatedleft ventricular end-diastolic volume of 111 mL (normal: <149 mL for males, < 102 mL for females, small: <45 mL). There is no stress- induced transient ischemic dilation (TID) of the left ventricular cavity. SPECT images demonstrate normal myocardial perfusion. There is no perfusion defect l ocated in the myocardium. There is regular cardiac rhythm with optimal gating. The gated SPECT images demonstrate normal systolic function. Regional wall motion is normal. LV wall thickening appears concordantly normal. The calculated post-stress LVEF is 65 - 69% --Pt with new diagnosis of leukemia and on chemo causing severe thrombocytopenia , plt count 12 (11/03/24) requiring frequent plt infusions. Plan: The pt is planning to receive allo stem cell transplant --his most recent stress testing, history , current symptoms and medical therapy was discussed withDr. Sow --Pt denies chest pain since starting on Imdur, He remains on CCB, bisoprolol and Crestor. --he is unable to tolerate ASA at this time due to profound thrombocytopenia --the reversible defect is located in the distal LAD, it is small, his LVEF remains preserved, given this history the pt is a higher risk for adverse cardiac events however he is not a candidate for PCI as his current diagnosis of AML with thrombocytopenia requiring frequent plt infusions precludeshim for any PCI/cardiac intervention at this time as he would be unable to tolerate DAPT . He is being medically managed with CCB, BB, long acting nitrates and statin and we would advise that he continue with medical management/optimization at this time. --he denies current angina --he is euvolemic on exam --BNP today From our standpoint he can move forward with stem cell transplant without any further cardiac testing recommended at this time. The risk and benefit should also be discussed with his interventional team. The patients history and plan of care was discussed with Dr. Sow who agrees with the plan. If Applicable: Discussed the potential risk of cardiotoxicity from current active treatment included but not limited to acute IL, angina pectoris, ischemic heart disease, cardiac arrhythmia, cardiomyopathy, heart failure, venous thromboembolism and the ongoing need for cardiovascular surveillance and cardiovascular risk assessment. Provided a total of 15 minutes of face to face education. Follow up with me in 4 months A total time of 63 minutes was spent by myself addressing the current illness, reviewing records (prior imaging, lab work, etc), and formulating a plan. The patient is agreeable to the plan and all pertinent questions were answered. Elsa Razo APRN [1] Past Medical History: Diagnosis Date Arteriosclerotic cardiovascular disease Chronic stable angina (CMS/HCC) Hypertension [2] Past Surgical History: Procedure Laterality Date TOTAL KNEE ARTHROPLASTY Right after broken patella [3] Current Outpatient Medications Medication Sig Dispense Refill acyclovir (Zovirax) 800 MG tablet Take 1 tablet (800 mg) by mouth in the morning and 1 tablet (800 mg) before bedtime. 60 tablet 3 amLODIPine (Norvasc) 2.5 MG tablet Take 1 tablet (2.5 mg) by mouth daily. 90 tablet 3 bisoprolol (Zebeta) 5 MG tablet Take 1 tablet (5 mg) by mouth daily. 90 tablet 3 isosorbide mononitrate ER (Imdur) 30 MG 24 hr tablet Take 1 tablet (30 mg) by mouth daily. Do not crush or chew. 30 tablet 11 levoFLOXacin (Levaquin) 500 MG tablet Take 1 tablet (500 mg) by mouth daily. 30 tablet 3 nicotine (Nicoderm CQ) 21 MG/24HR patch Place 1 patch on the skin 1 (one) time each day at the sametime. 28 patch 0 posaconazole (Noxafil) [address] tablet Take 3 tablets (300 mg) by mouth daily with breakfast. Starting Cycle 1 Day 3 of venetoclax, take 300mg twice daily for 2 doses, then 300mg daily every day from then on. Do not crush, chew, or split. 90 tablet 5 prochlorperazine (Compazine) 10 MG tablet Take 1 tablet (10 mg) by mouth every 6 hours as needed for nausea or vomiting. 30 tablet 5 rosuvastatin (Crestor) 40 MG tablet Take 1 tablet (40 mg) by mouth daily. 30 tablet 11 senna-docusate sodium (Senokot-S) 8.6-50 MG tablet Take 2 tablets by mouth at night as needed for constipation. 30 tablet 3 aspirin 81 MG chewable tablet Chew 1 tablet (81 mg) 1 (one) time each day. aspirin 81 mg tablet (Patient not taking: Reported on 10/13/2024) 30 tablet 11 nitroglycerin (Nitrostat) 0.[address] 1 tablet (0.4 mg) under the tongue every 5 (five) minutes as needed for chest pain. (Patient not taking: Reported on 10/13/2024) 10 tablet 11 No current facility-administered medications for this visit. documented in this encounter Plan of Treatment Upcoming Encounters Date Type Department Care Team ([facility] Contact Info) Description 01/06/2025 8:30 AM EDT Clinical Support [facility] Hematology/BMT and Cellular Therapy Program [address] [phone] 01/06/2025 9:00 AM EDT Procedure Visit [facility] Hematology/BMT and Cellular Therapy Program [address] [phone] Kierra Novak APRN 800 [facility] [address] [place] [address] 01/13/2025 9:30 AM EDT Clinical Support [facility] Hematology/BMT and Cellular Therapy Program [address] [phone] 01/13/2025 10:00 AM EDT Office Visit [facility] Hematology/BMT and Cellular Therapy Program [address] [facility], [address] [place] [phone] Isaura Wynn, HANDSTITCHING MACHINE ARMHOLE FELLER [facility] [address] [place] [phone] 01/13/2025 11:30 AM EDT Appointment [facility] Infusion [address] [place] [address] 01/14/2025 2:00 PM EDT Appointment [facility] [address] [place] [address] 01/15/2025 2:00 PM EDT Appointment [facility] [address] [place] [address] 01/16/2025 2:00 PM EDT Appointment [facility] [address] [place] [address] 01/17/2025 2:00 PM EDT Appointment [facility] [address] [place] [address] 01/18/2025 2:00 PM EDT Appointment [facility] [address] [place] [address] 01/19/2025 2:00 PM EDT Appointment [facility] [address] [place] [address] 03/10/2025 11:20 AM EDT Office Visit [facility] Head[facility] Neck [facility] Respiratory [address] [facility] [place] [address] Elsa Razo, HANDSTITCHING MACHINE ARMHOLE FELLER [address] [place] [phone] documented as of this encounter Procedures Procedure Name Priority Date/Time Associated Diagnosis Comments ECG ADULT Routine 11/05/2024 10:10 AM EDT Pre-transplant evaluation for stem cell transplant documented in this encounter Results * N-Terminal Probnp, Plasma (11/05/2024 11:01 AM EDT) N-Terminal, PROBNP, Plasma 672 0 - 899 pg/mL 11/05/2024 11:49 AM EDT [facility] Blood Venous blood specimen / Unknown Venipuncture / Unknown 11/05/2024 11:01 AM EDT 11/05/2024 11:21 AM EDT Elsa Razo APRN LAB BLOOD ORDERABLES Fin al Result [facility] [address] [place] [address] * ECG Adult (Now - Performed in your clinic) (11/05/2024 10:10 AM EDT) EKG DIAGNOSIS CLASS Normal MUSE ECG Ventricular Rate 71 BPM MUSE ECG Atrial Rate 71 BPM MUSE ECG MA Interval 154 ms MUSE ECG QRSD Interval 80 ms MUSE ECG QT Interval 404 ms MUSE ECG QTC Interval 439 ms MUSE ECG P [place] 45 degrees MUSE ECG R [place] 15 degrees MUSE ECG T Wave [place] 42 degrees MUSE ECG Diagnosis Normal sinus rhythm MUSE ECG Diagnosis Normal ECG MUSE ECG Diagnosis MUSE ECG Diagnosis Confirmed by Orestes Stone ([id number]) on 11/05/2024 10:19:58 AM MUSE ECG 11/05/2024 10:1 0 AM EDT 11/05/2024 10:19 AM EDT Elsa Razo APRN ECG ORDERABLES Final Re sult MUSE ECG documented in this encounter Visit Diagnoses Diagnosis Pre-transplant evaluation for stem cell transplant- Primary Myelodysplasia (myelodysplastic syndrome) (CMS/HCC) Myelodysplastic syndrome, unspecified Dyspnea on exertion Other dyspnea and respiratory abnormality Coronary artery disease involving [place] coronary artery of [place] heart without angina pectoris Thrombocytopenia (CMS/HCC) Unspecified thrombocytopenia documented in this encounter Additional Health Concerns Assessment Noted Time PHQ-9 Depression Total Score: 0 09/11/19 25 9:15 AM EST A fall risk assessment has been complete d for the patient 11/05/2024 9:56 AM EDT A Body Mass Index follow-up plan has been documented for the patient 11/10/2024 1:06 PM EDT documented as of this encounter Care Teams Insulation Board Back Tender Relationship Specialty Start Date End Date Zhao Harris MD [address] [place] [address] PCP - General 12/03/20 documented as of this encounter
--- OUTSIDE RECORDS SUMMARY | 2024-11-05 11:00 | XMS_ITS | Encounter Summary ---
Author Organization [facility] Address [address] [place] [address] Care Team Providers Care Education Specialist Name Role Phone Zhao Harris MD Primary Care Provider [phone] Reason for Visit * Reason Comments Labs Encounter Details Date Type Department Care Team (Latest Contact Info) Description 11/05/2024 11:00 AM EDT Clinical Support [facility] Ne[facility] Respiratory [address] [place] [address] Dyspnea on exertion Social History Tobacco Use Types Packs/Day Years [...] drink first t manav in the morning (EYE-RAW SHELLFISH PREPARER) to steady your nerves or to get rid of a hangover? 0 11/03/2024 CAGE Questionnaire Score 0 025 Sex and Gender Information Value Date Recorded Sex Assigned at Male 05/18/2023 9:35 AM EDT Legal Sex Male 7:29 PM EDT Gender Identity Male 05/18/2023 9:35 AM EDT Sexual Orientation Straight 05/18/2023 9: 35 AM EDT documented as of this encounter Plan of Treatment Upcoming Encounters Date Type Department Care Team ([facility] Contact Info) Description 01/06/2025 8:30 AM EDT Clinical Support [facility] Hematology/BMT and Cellular Therapy Program [address] [place] [address] [phone] 01/06/2025 9:00 AM EDT Procedure Visit [facility] Hematology/BMT and Cellular Therapy Program [address] [place] [address] [phone] Kierra Novak, WELT DRAWER 800 [facility] [address] [place] [phone] 01/13/2025 9:30 AM EDT Clinical Support [facility] Hematology/BMT and Cellular Therapy Program [address] [place] [address] [phone] 01/13/2025 10:00 AM EDT Office Visit [facility] Hematology/BMT and Cellular Therapy Program [address] [place] [address] [phone] Isaura Wynn, WELT DRAWER 800 [facility] [address] [place] [address] [phone] 01/13/2025 11:30 AM EDT Appointment [facility] Infusion [address] [place] [phone] 01/14/2025 2:00 PM EDT Appointment [facility] [address] [place] [phone] 01/15/2025 2:00 PM EDT Appointment [facility] [address] [place] [phone] 01/16/2025 2:00 PM EDT Appointment [facility] [address] [place] [address] 01/17/2025 2:00 PM EDT Appointment [facility] [address] [place] [address] 01/18/2025 2:00 PM EDT Appointment [facility] [address] [place] [address] 01/19/2025 2:00 PM EDT Appointment [facility] [address] [place] [address] 03/10/2025 11:20 AM EDT Office Visit [facility] Neck [facility] Res[facility] [address] [facility], [address]nd [place] [address] Elsa Razo, ESTRELLA [address] [place] [address] documented as of this encounter Procedures Procedure Name Priority Date/Time Associated Diagnosis Comments N-TERMINAL PROBNP, PLASMA Routine 11/05/2024 11:01 AM EDT Dyspnea on exertion documented in this encounter Results * N-Terminal Probnp, Plasma (11/05/2024 11:01 AM EDT) N-Terminal, PROBNP, Plasma 672 0 - 899 pg/mL 11/05/2024 11:49 AM EDT [facility] Blood Venous blood specimen / Unknown Venipuncture / Unknown 11/05/2024 11:01 AM EDT 11/05/2024 11:21 AM EDT us Elsa Razo WELT DRAWER LAB BLOOD ORDERABLES Fin al Result [facility] [address] [place] [address] documented in this encounter Visit Diagnoses Diagnosis Dyspnea on exertion Other dyspnea and respiratory abnormality documented in this encounter Additional Health Concerns Assessment Noted Time PHQ-9 Depression Total Score: 0 09/11/19 25 9:15 AM EST A fall risk assessment has been complete d for the patient 11/05/2024 9:56 AM EDT A Body Mass Index follow-up plan has been documented for the patient 11/10/2024 1:06 PM EDT documented as of this encounter Care Teams Education Specialist Relationship Specialty Start Date End Date Zhao Harris MD [address] [place] [address] PCP - General 12/03/20 documented as of this encounter
--- OUTSIDE RECORDS SUMMARY | 2024-11-10 13:30 | XMS_ITS | Encounter Summary ---
Author Organization Healthcare Address [address] [place] [address] Care Team Providers Care Veterinary X Ray Operator Name Role Phone Zhao Harris MD Primary Care Provider [phone] Reason for Visit * Reason Comments Labs Encounter Details Date Type Department Care Team ([facility] st Contact Info) Description 11/10/2024 1:30 PM EDT Clinical Support [facility] Hematology/BMT and Cellular Therapy Program [address] [place] [address] [place] [address] Eliana Vicente, RN [facility] Social History Tobacco Use Types Packs/Day Years [...] drink first t manav in the morning (EYE-SECRETARY OFFICE CLERK) to steady your nerves or to get [...] Upcoming Encounters Date Type Department Care Team ([facility] st Contact Info) Description 01/06/2025 8:30 AM EDT Clinical Support [facility] Hematology/BMT and Cellular Therapy Program [address] [place] [phone] 01/06/2025 9:00 AM EDT Procedure Visit [facility] Hematology/BMT and Cellular Therapy Program [address] [place] [address] [phone] Kierra Novak, GOVERNMENT AFFAIRS MANAGER 800 [facility] [address] [place] [phone] 01/13/2025 9:30 AM EDT Clinical Support [facility] Hematology/BMT and Cellular Therapy Program [address] [place] [address] [phone] 01/13/2025 10:00 AM EDT Office Visit [facility] Hematology/BMT and Cellular Therapy Program [address] [place] [address] [phone] Isaura Wynn, GOVERNMENT AFFAIRS MANAGER 800 [facility] [address] [place] [address] [phone] 01/13/2025 11:30 AM EDT Appointment [facility] [address] [place] [phone] 01/14/2025 2:00 PM EDT Appointment [facility] [address] [place] [phone] 01/15/2025 2:00 PM EDT Appointment [facility] [address] [place] [address] 01/16/2025 2:00 PM EDT Appointment [facility] [address] [place] [address] 01/17/2025 2:00 PM EDT Appointment [facility] [address] [place] [address] 01/18/2025 2:00 PM EDT Appointment [facility] [address] [place] [address] 01/19/2025 2:00 PM EDT Appointment [facility] [address] [place] [address] 03/10/2025 11:20 AM EDT Office Visit [facility] Head[facility] Neck [facility] Respiratory 800 [facility], [address]nd [place] [address] Elsa Razo, GOVERNMENT AFFAIRS MANAGER [address] [place] [address] documented as of this encounter Visit Diagnoses Not on filedocumented in this encounter Additional Health Concerns Assessment Noted Time PHQ-9 Depression Total Score: 0 09/11/19 25 9:15 AM EST A fall risk assessment has been complete d for the patient 11/10/2024 3:29 PM EDT A Body Mass Index follow-up plan has been documented for the patient 11/10/2024 1:06 PM EDT documented as of this encounter Care Teams Veterinary X Ray Operator Relationship Specialty Start Date End Date Zhao Harris MD [address] [address] PCP - General 12/03/20 documented as of this encounter
--- OUTSIDE RECORDS SUMMARY | 2024-11-10 14:00 | XMS_ITS | Encounter Summary ---
Author Organization [facility] Address [address] [place] [address] Care Team Providers Care Public Health Doctor Name Role Phone Zhao Harris MD Primary Care Provider [phone] Reason for Visit * Reason Comments Procedure * Genetic Testing (Routine) - Authorized Specialty Diagnoses / Procedures Referred By Justice mcgee Referred To Contact Lab Diagnoses Myelodysplasia (myelodysplastic syndrome) (CMS/HCC) Procedures Cytogenetics Testing, Oncology Virgen Vargas MD [address] [facility] [address] [place] [phone] Phone: tel: fax: Referral ID Status Reason Start Date Expiration Date V isits Requested Visits Authorized [id number] Authorized 10/16/2024 04/17/2026 1 1 Encounter Details Date Type Department Care Team (Latest Contact Info) Description 11/10/2024 2:00 PM EDT Procedure Visit [facility] Hematology/BMT and Cellular Therapy Program [address] [place] [address] Elaina Boss PA [address] [facility] [address] [place] [phone] Myelodysplasia (myelodysplastic syndrome) (CMS/HCC) (Primary Dx) [...] drink 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 There were no complications. ARAM Davidson [facility] CC HEMATOLOGY/BMT AND CELLULAR THERAPY PROGRAM 800 [facility] [phone] / documented in this encounter Plan of Treatment Upcoming Encounters Date Type Department Care Team ([facility] st Contact Info) Description 01/06/2025 8:30 AM EDT Clinical Support [facility] Hematology/BMT and Cellular Therapy Program 750 [facility], [address] [place] [address] [place] [address] 01/06/2025 9:00 AM EDT Procedure Visit [facility] Hematology/BMT and Cellular Therapy Program 750 [facility], [address] [place] [address] [place] [phone] Kierra Novak, STONE REPAIRER [address] [facility] [address] [place] [phone] 01/13/2025 9:30 AM EDT Clinical Support [facility] Hematology/BMT and Cellular Therapy Program 750 [facility], [address] [place] [phone] 01/13/2025 10:00 AM EDT Office Visit [facility] Hematology/BMT and Cellular Therapy Program 750 [facility], [address] [place] [phone] Isaura Wynn, STONE REPAIRER [address] [facility] [address] [place] [phone] 01/13/2025 11:30 AM EDT Appointment [facility] [address] [place] [phone] 01/14/2025 2:00 PM EDT Appointment [facility] [address] [place] [phone] 01/15/2025 2:00 PM EDT Appointment [facility] [address] [place] [phone] 01/16/2025 2:00 PM EDT Appointment [facility] [address] [place] [phone] 01/17/2025 2:00 PM EDT Appointment [facility] [address] [place] [phone] 01/18/2025 2:00 PM EDT Appointment [facility] [address] [place] [address] 01/19/2025 2:00 PM EDT Appointment [facility] [address] [place] [phone] 03/10/2025 11:20 AM EDT Office Visit [facility] 800 [facility], [address] [place] [phone] Elsa Razo, STONE REPAIRER [address] [place] [phone] Scheduled Orders Name Type Priority Associated Diagnoses [...] Type Bone Marrow 11/19/2024 5:[address] [facility] Clinical Indication Acute Myeloid Leukemia 11/19/2024 5:[address] [facility] Chromosome Analysis Result Giemsa-banded metaphase cells from unstimulated bone marrow cultures showed the following chromosome pattern: 43~46,X,-Y,t(4;14 )(q21;q32),add(5) (q13),add(16)(q11 .2),-17,add(20)(q 11.2),+mar[cp14]/ 46,XY[6] 11/19/2024 5:[address] [facility] Interpretation Abnormal male chromosome analysis. 70% [...] correlation is recommended. Note: Per [employer] (CAP) requirement additional karyotypes were performed and charged due to the presence of clonal abnormalities. # cells counted = 20 # cells analyzed = 20 # cells karyotyped = 4 Band resolution: 400-450 11/19/2024 5:[address] [facility] Pathologist Signature Reviewed by: Mesfin Rae 11/19/2024 5:[address] [facility] Bone Marrow Non-blood Collection / Unknown 11/10/2024 2:30 PM EDT 11/10/2024 3:39 PM EDT us Virgen Vargas MD LAB CYTOGENETICS ORDERABLES F inal Result [facility] [address] [place] [address] * Leukemia/Lymphoma - Immunophenotyping by Flow Cytometry (11/10/2024 2:30 PM EDT) Clinical Indication AML 11/11/2024 10:49 AM EDT [facility] Flow Cytometry Interpretation A. BONE MARROW FOR FLOW CYTOMETRY: - ACUTE MYELOID LEUKEMIA (APPROXIMATELY 40-50% BLASTS EXPRESSING CD117, VARIABLE CD34, CD13, CD33, PARTIAL CD15, DIM CD4, PARTIAL CD7, DIM CD123, PARTIAL CD 38, AND VARIABLE CD45), SEE COMMENT. 11/11/2024 10:[address] [facility] Comments CD45/side scatter analysis shows an [...] lambda surface light chains 11/11/2024 10:49 AM [facility] Disclaimer This test was developed and its performance characteristics determined by the Immuno-Molecular Pathology Laboratory at the [facility]. It has not been cleared or approved [...] Martha Lopez MD 11/11/2024 10:[address] [facility] MRD Indicated Test Not Indicated 10:[address] [facility] Bone Marrow Specimen from bone marrow obtained by aspiration / Unknown Non-blood Collection / Unknown 11/10/2024 2:30 PM EDT 11/10/2024 3:28 PM EDT us Virgen Vargas MD LAB FLOW CYTOMETRY ORDERABLES Final Result [facility] [address] [place] [address] * Bone marrow exam (11/10/2024 2:30 PM EDT) Case Report Bone Marrow Case: [id number] Authorizing Provider: Virgen Vargas MD Collected: 11/10/2024 1430 Ordering Location: [facility] Hematology/BMT and Received: 11/10/2024 [facility] Cellular Therapy Program Pathologist: Martha Lopez MD Specimens: A) - Bone Marrow Aspirate, left B) - Bone Marrow Biopsy, left C) - Peripheral Blood for Bone Marrow 10:[address] [facility] Cytogenetics Report, Addendum Chromosome Analysis Result [...] Clinical correlation is recommended. 10:[address] [facility] Addendum electronically signed by Martha Lopez MD on 11/20/2024 at 1039 EDT Final Diagnosis A. PERIPHERAL BLOOD AND BONE MARROW, LEFT POSTERIOR ILIAC CREST, (PERIPHERAL SMEAR, ASPIRATE SMEAR, AND CORE BIOPSY): - ACUTE MYELOID LEUKEMIA (35% BLASTS IN HYPERCELLULAR BONE MARROW WITH ASSOCIATED DYSPOIESIS), SEE COMMENT. 10:[address] 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 10:[address] [facility] Clinical Information AmL 10:[address] [facility] CBC and Differential PERIPHERAL BLOOD: 11/10/2024: [...] circulating blasts are seen. 10:[address] [facility] Bone Marrow Differential BONE MARROW DIFFERENTIAL: 200 cells Normal Patient Neutrophils 15-50 5 Metamyelocytes 4-19 2 Myelocytes 1-18 1 Promyelocytes 1-8 2 Blasts 0-2 35 Monocytes 0-5 1 Erythroid 16-38 49 Lymphocytes 3-24 4 Eosinophils 0-6 0 Basophils 0-2 0 Plasma cells 0-4 1 Other 10:39 AM T [facility] Bone Marrow Aspirate and Biopsy The bone [...] identified. Bone trabeculae are unremarkable. 10:39 AM [facility] Special and Immunohistochemical Stains Special Stain: A1-1 Christine-Giemsa A1-2 Christine-Giemsa A1-3 Christine-Giemsa A1-4 Iron C1-1 Christine-Giemsa IHC: There are no tasks to display for the given criteria. All controls show appropriate reactivity. All immunohistochemis try, in situ hybridization, and histochemical tests were developed by and are performed at the [facility], [address] [place] [address]. All tests reported here, except those addressing [...] false negativity on decalcified specimens. 10:39 AM [facility] Flow Cytometry Interpretation A. BONE MARROW FOR FLOW CYTOMETRY: - ACUTE MYELOID LEUKEMIA (APPROXIMATELY 40-50% BLASTS EXPRESSING CD117, VARIABLE CD34, CD13, CD33, PARTIAL CD15, DIM CD4, PARTIAL CD7, DIM CD123, PARTIAL CD 38, AND VARIABLE CD45), SEE COMMENT. 10:[address] [facility] CYTOGENETICS/MOLECULA R INTERPRETATION Correlation with cytogenetic/molec ular analysis is suggested. 10:[address] [facility] Gross Description B. LEFT A single specimen is received in formalin labeled bone marrow biopsy left posterior iliac crest and consists of 1 piece(s) of red/white tissue measuring 1.5 cm in length 0.2 cm in diameter. The specimen is submitted in to Histology for decalcification and routine processing. Cold Time: <1m 10:[address] [facility] Note: A resident was involved in the service. I attest I examined the relevant preparations for the specimens and confirmed the diagnosis or interpretation. 10:[address] [facility] Bone Marrow Peripheral blood specimen / [...] PATHOLOGY ORDERABLES Edit ed Result - Final [facility] [address] [place] [address] * BIOPSY BONE MARROW (11/10/2024 2:00 PM EDT) Narrative Elaina Boss PA - 11/10/2024 2:00 PM EDT Elaina Boss PA 11/10/2024 3:36 PM Biopsy bone marrow Performed by: Elaina Boss PA Authorized by: Elaina Boss PA us Elaina [facility] IN CLINIC/BEDSIDE ORDERABLE S Final Result * (ABNORMAL) Comprehensive metabolic panel (11/10/2024 1:39 PM EDT) [facility] Glucose, Plasma 98 74 - 99 mg/dL 11/10/2024 2:[address] [facility] BUN, Plasma 10 8 - 23 mg/dL 11/10/2024 2:[address] [facility] Creatinine, Plasma 0.95 0.70 - 1.20 mg/dL 11/10/2024 2:[address] [facility] BUN/Creatinine Ratio 11 11/10/2024 2:[address] [facility] Sodium, Plasma 140 136 - 145 mmol/L 11/10/2024 2:[address] [facility] Potassium, Plasma 4.0 3.6 - 4.9 mmol/L 11/10/2024 2:[address] [facility] Chloride, Plasma 108(H) 97 - 107 mmol/L 11/10/2024 2:[address] [facility] CO2, Plasma 20(L) 22 - 29 mmol/L 11/10/2024 2:[address] [facility] Anion Gap 12 6 - 16 mmol/L 11/10/2024 2:[address] [facility] Total Calcium, Plasma 9.2 8.9 - 10.2 mg/dL 11/10/2024 2:[address] [facility] Total Protein 6.9 6.3 - 7.9 g/dL 11/10/2024 2:[address] [facility] Albumin, Plasma 3.8 3.5 - 5.2 g/dL 11/10/2024 2:[address] [facility] AST, Plasma 35 10 - 50 U/L 11/10/2024 2:[address] [facility] ALT, Plasma 42 10 - 50 U/L 11/10/2024 2:[address] [facility] Alkaline Phosphatase, Plasma 66 40 - 115 U/L 11/10/2024 2:[address] [facility] Total Bilirubin, Plasma 0.6 0.2 - 1.1 mg/dL 11/10/2024 2:[address] [facility] eGFRcr 86.6 mL/min/1.7 3m*2 11/10/2024 2:[address] [facility] Comment:Reported eGFRcr in m L/min/1.73m2 is based the CKD-EPI 2020 equation that does not use a race coefficient. Blood Venous blood specimen / Unknown Venipuncture / Unknown 11/10/2024 1:39 PM EDT 11/10/2024 2:07 PM EDT us Virgen Vargas MD LAB BLOOD ORDERABLES Final Re sult [facility] [address] [place] [address] * (ABNORMAL) CBC and differential (11/10/2024 1:39 PM EDT) WBC Count 0.97(LL) 3.70 - 10.30 10*3/uL LAB HEMATOLOGY METHOD 11/10/2024 2:24 PM EDT [facility] RBC Count 2.08(L) 4.60 - 6.10 10*6/uL LAB HEMATOLOGY METHOD 11/10/2024 2:24 PM EDT [facility] HGB 7.3(L) 13.7 - 17.5 g/dL LAB HEMATOLOGY METHOD 11/10/2024 2:24 PM EDT [facility] HCT 20.3(L) 40.0 - 51.0 % LAB HEMATOLOGY METHOD 11/10/2024 2:24 PM EDT [facility] Platelet Count 6(LL) 155 - 369 10*3/uL LAB HEMATOLOGY METHOD 11/10/2024 2:24 PM EDT [facility] Comment:Consistent with prio r results MCV 98 79 - 98 fL LAB HEMATOLOGY METHOD 11/10/2024 2:24 PM EDT [facility] Comment:Results inconsistent with previous lab findings. MCH 35.1(H) 26.0 - 32.0 pg LAB HEMATOLOGY METHOD 11/10/2024 2:24 PM EDT [facility] MCHC 36.0(H) 30.7 - 35.5 g/dL LAB HEMATOLOGY METHOD 11/10/2024 2:24 PM EDT [facility] RDW 19.9(H) 11.5 - 14.5 % LAB HEMATOLOGY METHOD 11/10/2024 2:24 PM EDT [facility] MPV LAB HEMATOLOGY METHOD 11/10/2024 2:24 PM EDT [facility] Comment:Not Measured nRBC 0.0 <=0.0 per 100 WBCs LAB HEMATOLOGY METHOD 11/10/2024 2:24 PM EDT [facility] Differential Type Automated LAB HEMATOLOGY METHOD 11/10/2024 2:24 PM EDT [facility] Neutrophils % 20 % LAB HEMATOLOGY METHOD 11/10/2024 2:24 PM EDT [facility] Lymphocytes % 76 % LAB HEMATOLOGY METHOD 11/10/2024 2:24 PM EDT [facility] Monocytes % 4 % LAB HEMATOLOGY METHOD 11/10/2024 2:24 PM EDT [facility] Eosinophils % 0 % LAB HEMATOLOGY METHOD 11/10/2024 2:24 PM EDT [facility] Basophils % 0 % LAB HEMATOLOGY METHOD 11/10/2024 2:24 PM EDT [facility] Immature Granulocytes % 0 % LAB HEMATOLOGY METHOD 11/10/2024 2:24 PM EDT [facility] Neutrophils Absolute 0.19(LL) 1.60 - 6.10 10*3/uL LAB HEMATOLOGY METHOD 11/10/2024 2:24 PM EDT [facility] Lymphocytes Absolute 0.74(L) 1.20 - 3.90 10*3/uL LAB HEMATOLOGY METHOD 11/10/2024 2:24 PM EDT [facility] Monocytes Absolute 0.04(L) 0.30 - 0.90 10*3/uL LAB HEMATOLOGY METHOD 11/10/2024 2:24 PM EDT [facility] Eosinophils Absolute 0.00 0.00 - 0.50 10*3/uL LAB HEMATOLOGY METHOD 11/10/2024 2:24 PM EDT [facility] Basophils Absolute 0.00 0.00 - 0.10 10*3/uL LAB HEMATOLOGY METHOD 11/10/2024 2:24 PM EDT [facility] Immature Granulocytes Absolute 0.00 0.00 - 0.06 10*3/uL LAB HEMATOLOGY METHOD 11/10/2024 2:24 PM EDT [facility] Blood Venous blood specimen / Unknown Venipuncture / Unknown 11/10/2024 1:39 PM EDT 11/10/2024 1:49 PM EDT Narrative [facility] - 11/10/2024 2:24 PM EDT Therapeutic decision making should be based on absolute values, rather than percentages. Virgen Vargas MD LAB BLOOD ORDERABLES Final Re sult [facility] [address] [place] [address] documented in this encounter Visit Diagnoses Diagnosis [...] documented as of this encounter Care Teams Public Health Doctor Relationship Specialty Start Date End Date Zhao Harris MD [address] [place] [address] [place] [address] PCP - General 12/03/20 documented as of this encounter
--- OUTSIDE RECORDS SUMMARY | 2024-11-10 15:00 | XMS_ITS | Encounter Summary ---
Author Organization [facility] Address [address] [place] [address] Care Team Providers Care Hot Oiler Name Role Phone Zhao Harris MD Primary Care Provider [phone] Encounter Details Date Type Department Care Team (Latest Contact Info) Description 11/10/2024 3:00 PM EDT - 11/10/2024 11:59 PM EDT Hospital Encounter [facility] [address] [place] [address] Myelodysplasia (myelodysplastic syndrome) (CMS/HCC) (Primary Dx); Thrombocytopenia [...] drink first t manav in the morning (EYE-AERIAL LINEMAN) to steady your nerves or to get [...] 5 MG tabletIndications :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 90 tablet 3 09/11/2024 HYDROcodone-aceta minophen ([place]) 5-325 MG tablet Take 1 tablet by mouth every 6 hours as needed. 11/07/2024 levoFLOXacin (Levaquin) 500 MG tabletIndications :Myelodysplasia (myelodysplastic syndrome) (CMS/HCC) Take 1 tablet (500 mg) by mouth daily. 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 30 tablet 10/13/2024 senna-docusate sodium (Senokot-S) 8.6-50 MG tablet Take 2 tablets by mouth at night as needed for constipation. 30 tablet 3 10/23/2024 aspirin 81 MG chewable tablet Chew 1 tablet (81 mg) 1 (one) time each day. 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, unspecified vessel or [...] CC Hematology/BMT and Cellular Therapy Program [address] [phone] 01/06/2025 9:00 AM EDT Procedure Visit [facility] Hematology/BMT and Cellular Therapy Program [address] [phone] Kierra Novak, NURSING TECHN 800 [facility] [address] [place] [phone] 01/13/2025 9:30 AM EDT Clinical Support [facility]ematology/BMT [facility] Cellular Therapy Program [address] [phone] 01/13/2025 10:00 AM EDT Office Visit [facility]ematology/BMT [facility] Cellular Therapy Program [address] [phone] Isaura Wynn, NURSING TECHN 800 [facility] [address] [place] [phone] 01/13/2025 11:30 AM EDT Appointment [facility]fusion [address] [place] [address] 01/14/2025 2:00 PM EDT Appointment [facility] [address] [place] [address] 01/15/2025 2:00 PM EDT Appointment [facility] [address] [place] [address] 01/16/2025 2:00 PM EDT Appointment [facility] [address] [place] [address] 01/17/2025 2:00 PM EDT Appointment [facility] [address] [place] [phone] 01/18/2025 2:00 PM EDT Appointment [facility] [address] [place] [address] 01/19/2025 2:00 PM EDT Appointment [facility] [address] [place] [address] 03/10/2025 11:20 AM EDT Office Visit Pav CC Head, Neck & Respiratory 800 [facility], [address]nd [place] [address] Elsa Razo, NURSING TECHN [address] [place] [address] documented as of this encounter Procedures Procedure [...] LAB HEMATOLOGY METHOD 11/10/2024 5:37 PM EDT [facility] Blood Venous blood specimen / Unknown Venipuncture / Unknown 11/10/2024 4:54 PM EDT 11/10/2024 5:22 PM EDT us Virgen Vargas MD LAB BLOOD ORDERABLES Final Re sult [facility] [address] [place] [address] * Prepare Leukocyte Reduced Platelets: 1 Units (11/10/2024 3:32 PM EDT) Product Code [id number] CH BLOO D BANK Dispense Status Transfused BLOOD BANK Blood Expiration Date [id number] BLOOD BANK Unit Number [id number] CH B LOOD BANK Product Blood Type 2800 BLOOD BANK Blood Type AB- CH BLOOD BANK Blood Venous blood specimen / Unknown us Kayli CHIU BLOOD BANK PRODUCT ORDER VIKAS Final Result BLOOD BANK [address] documented in this encounter Visit Diagnoses [...] documented as of this encounter Care Teams Hot Oiler Relationship Specialty Start Date End Date Zhao Harris MD [address] [place] [address] PCP - General 12/03/20 documented as of this encounter
--- OUTSIDE RECORDS SUMMARY | 2024-11-18 10:30 | XMS_ITS | Encounter Summary ---
Author Organization [facility] Address [address] [place] [address] Care Team Providers Care Parasitologist Name Role Phone Zhao Harris MD Primary Care Provider [phone] Reason for Visit * Reason Comments Nurse Visit Labs Encounter Details Date Type Department Care Team ([facility] Contact Info) Description 11/18/2024 10:30 AM EDT Clinical Support [facility] Hematology/BMT and Cellular Therapy Program [address] [place] [address] [place] [address] Social History Tobacco Use Types Packs/Day Years [...] drink first t manav in the morning (EYE-TEACHER BALLET) to steady your nerves or to get [...] Upcoming Encounters Date Type Department Care Team ([facility] st Contact Info) Description 01/06/2025 8:30 AM EDT Clinical Support [facility] Hematology/BMT and Cellular Therapy Program [address] [phone] 01/06/2025 9:00 AM EDT Procedure Visit [facility] Hematology/BMT and Cellular Therapy Program [address] [place] [phone] Kierra Novak, DAIRY EQUIPMENT REPAIRER 800 [facility] [address] [place] [phone] 01/13/2025 9:30 AM EDT Clinical Support [facility] Hematology/BMT and Cellular Therapy Program [address] [phone] 01/13/2025 10:00 AM EDT Office Visit [facility] Hematology/BMT and Cellular Therapy Program [address] [phone] Isaura Wynn, DAIRY EQUIPMENT REPAIRER 800 [facility] [address] [place] [phone] 01/13/2025 11:30 AM EDT Appointment [facility] Infusion [address] [place] [address] 01/14/2025 2:00 PM EDT Appointment [facility]fusion [address] [place] [phone] 01/15/2025 2:00 PM EDT Appointment [facility]fusion [address] [place] [address] 01/16/2025 2:00 PM EDT Appointment [facility]fusion [address] [place] [address] 01/17/2025 2:00 PM EDT Appointment [facility] [address] [place] [address] 01/18/2025 2:00 PM EDT Appointment [facility]fusion [address] [place] [address] 01/19/2025 2:00 PM EDT Appointment [facility] [address] [place] [address] 03/10/2025 11:20 AM EDT Office Visit Pav CC Head, Neck & Respiratory 800 [facility], [address] [place] [address] Elsa Razo, DAIRY EQUIPMENT REPAIRER [address] [place] [address] documented as of this encounter Visit Diagnoses [...] documented as of this encounter Care Teams Parasitologist Relationship Specialty Start Date End Date Zhao Harris MD [address] [address] PCP - General 12/03/20 documented as of this encounter
--- OUTSIDE RECORDS SUMMARY | 2024-11-18 11:00 | XMS_ITS | Encounter Summary ---
Author Organization [facility] Address [address] [place] [address] Care Team Providers Care Cigar Wrapper Name Role Phone Zhao Harris MD Primary Care Provider [phone] Reason for Referral * Imaging (Routine) - Closed Specialty Diagnoses / Procedures Referred By Justice mcgee Referred To Contact Radiology Diagnoses Myelodysplasia (myelodysplastic syndrome) (CMS/HCC) Procedures IR Port Placement 5+ Years Consult to Interventional Radiology Isaura Wynn APRN 800 [facility] [address] [address] Phone: tel: fax: Referral ID Status Reason Start Date Expiration Date Visits Re quested Visits Authorized [id number] Closed 11/18/2024 05/20/2026 1 1 * Genetic Testing (Routine) - Closed Specialty Diagnoses / Procedures Referred By Justice mcgee Referred To Contact Lab Diagnoses Myelodysplasia (myelodysplastic syndrome) (CMS/HCC) Procedures Cytogenetics Testing, Oncology Virgen Vargas MD [address] [address] Phone: tel: fax: Referral ID Status Reason Start Date Expiration Date Visits Re quested Visits Authorized [id number] Closed 11/18/2024 05/20/2026 1 1 * Genetic Testing (Routine) - Authorized Specialty Diagnoses / Procedures Referred By Justice mcgee Referred To Contact Lab Diagnoses Myelodysplasia (myelodysplastic syndrome) (CMS/HCC) Procedures Leukemia/Lymphoma - Immunophenotyping by Flow Cytometry Virgen Vargas MD [address] [address] Phone: tel: fax: Referral ID Status Reason Start Date Expiration Date V isits Requested Visits Authorized [id number] Authorized 11/18/2024 05/20/2026 1 1 * Genetic Testing (Routine) - Authorized Specialty Diagnoses / Procedures Referred By Justice mcgee Referred To Contact Lab Diagnoses Myelodysplasia (myelodysplastic syndrome) (CMS/HCC) Procedures Bone marrow exam Virgen Vargas MD [address] [address] Phone: tel: fax: Referral ID Status Reason Start Date Expiration Date V isits Requested Visits Authorized [id number] Authorized 11/18/2024 05/20/2026 1 1 Encounter Details Date Type Department Care Team (Latest Contact Info) Description 11/18/2024 11:00 AM EDT Office Visit [facility] Hematology/BMT and Cellular Therapy Program [address] [place] [address] Isaura Wynn, ESTRELLA [address] [address] Myelodysplasia (myelodysplastic syndrome) (CMS/HCC) (Primary [...] first t manav in the morning (EYE-DIRECTOR CAREER) to steady your nerves or to get [...] a preserved mata-T cell profile with a CD4:VL3qcddo of 2.7:1. Polyclonal B-cells (3%) and a [...] counts (WBC 2.3 k/??L, hemoglobin 11.6 g/dL, [id number] k/??L) prompted a bone marrow biopsy on [...] ESTRELLA Claire HEMATOLOGY/BMT AND CELLULAR THERAPY PROGRAM [address] [place] [phone] [1] Current Outpatient Medications: acyclovir (Zovirax) 800 [...] daily., Disp: 90 tablet, Rfl: 3 HYDROcodone-acetaminophen ([place]) 5-325 MG tablet, Take 1 tablet by [...] History: N/A Plan: Venetoclax rx sent to [facility]. Refills due monthly. Patient will return to clinic in 4 weeks. Will follow-up at that time. documented in this encounter Plan of Treatment Upcoming Encounters Date Type Department Care Team ([facility] Contact Info) Description 01/06/2025 8:30 AM EDT Clinical Support [facility] Hematology/BMT and Cellular Therapy Program [address] [address] 01/06/2025 9:00 AM EDT Procedure Visit [facility] Hematology/BMT and Cellular Therapy Program [address] [address] Kierra Novak, SEWING SUPERVISOR 800 [facility] [address] [place] [phone] 01/13/2025 9:30 AM EDT Clinical Support [facility] Hematology/BMT and Cellular Therapy Program 750 [facility] [place] [address] 01/13/2025 10:00 AM EDT Office Visit [facility] Hematology/BMT and Cellular Therapy Program 750 [facility] [place] [address] Isaura Wynn, SEWING SUPERVISOR 800 [facility] [address] [place] [phone] 01/13/2025 11:30 AM EDT Appointment [facility] H Infusion 800 [place] [address] 01/14/2025 2:00 PM EDT Appointment [facility] 800 [place] [address] 01/15/2025 2:00 PM EDT Appointment [facility] 800 [place] [address] 01/16/2025 2:00 PM EDT Appointment [facility]fusion [address] [place] [address] 01/17/2025 2:00 PM EDT Appointment [facility]fusion [address] [place] [address] 01/18/2025 2:00 PM EDT Appointment [facility] Infusion [address] [place] [address] 01/19/2025 2:00 PM EDT Appointment [facility] Infusion 800 [place] [address] 03/10/2025 11:20 AM EDT Office Visit [facility] Head, Neck & Respiratory 800 [facility], [address] [place] [phone] Elsa Razo, SEWING SUPERVISOR 800 [place] [phone] documented as of this encounter Procedures Procedure [...] CBC and differential (12/11/2024 8:38 AM EDT) [facility] WBC Count 0.61(LL) 3.70 - 10.30 10*3/uL LAB HEMATOLOGY METHOD 12/11/2024 10:54 AM EDT [facility] RBC Count 2.80(L) 4.60 - 6.10 10*6/uL LAB HEMATOLOGY METHOD 12/11/2024 10:54 AM EDT [facility] HGB 8.9(L) 13.7 - 17.5 g/dL LAB HEMATOLOGY METHOD 12/11/2024 10:54 AM EDT [facility] HCT 25.1(L) 40.0 - 51.0 % LAB HEMATOLOGY METHOD 12/11/2024 10:54 AM EDT [facility] Platelet Count 11(LL) 155 - 369 10*3/uL LAB HEMATOLOGY METHOD 12/11/2024 10:54 AM EDT [facility] MCV 90 79 - 98 fL LAB HEMATOLOGY METHOD 12/11/2024 10:54 AM EDT [facility] MCH 31.8 26.0 - 32.0 pg LAB HEMATOLOGY METHOD 12/11/2024 10:54 AM EDT [facility] MCHC 35.5 30.7 - 35.5 g/dL LAB HEMATOLOGY METHOD 12/11/2024 10:54 AM EDT [facility] RDW 16.2(H) 11.5 - 14.5 % LAB HEMATOLOGY METHOD 12/11/2024 10:54 AM EDT [facility] MPV 12.3 8.8 - 12.5 fL LAB HEMATOLOGY METHOD 12/11/2024 10:54 AM EDT [facility] nRBC 4.9(H) <=0.0 per 100 WBCs LAB HEMATOLOGY METHOD 12/11/2024 10:54 AM EDT [facility] Differential Type Manual LAB HEMATOLOGY METHOD 12/11/2024 10:54 AM EDT [facility] Blood Venous blood specimen / Unknown Venipuncture / Unknown 12/11/2024 8:38 AM EDT 12/11/2024 8:50 AM EDT Narrative [facility] - 12/11/2024 10:54 AM EDT [...] MD LAB BLOOD ORDERABLES Final Re sult [facility] [address] [place] [id number] * Leukemia/Lymphoma - Immunophenotyping by Flow Cytometry (12/09/2024 10:15 AM EDT) Clinical Indication AML 12/10/2024 8:51 AM EDT [facility] Flow Cytometry Interpretation APPROXIMATELY 23% POPULATION OF CD34 POSITIVE MYELOID BLASTS EXPRESSING CD34, CD117, CD13, CD33, HLA-DR, PARTIAL CD7, VARIABLE CD123, PARTIAL CD38, AND MODERATE CD45, SEE COMMENT, BONE MARROW ASPIRATE. 12/10/2024 8:51 AM EDT [facility] Comments Specimen viability is 86.0%. [...] chains, CD123 12/10/2024 8:[address] [facility] Disclaimer This test was developed and its performance characteristics determined by the Immuno-Molecular Pathology Laboratory at the [facility]. It has not been cleared or [...] the report. 12/10/2024 8:[address] [facility] Pathologist Signature Reviewed by: Gerry Jensen MD 12/10/2024 8:51 AM EDT [facility] MRD Indicated Test Not Indicated 8:51 AM EDT [facility] Bone Marrow Specimen from bone marrow obtained by aspiration / Unknown Non-blood Collection / Unknown 12/09/2024 10:15 AM EDT 12/09/2024 11:28 AM EDT us Virgen Vargas MD LAB FLOW CYTOMETRY ORDERABLES Final Result [facility] [address] [place] [address] * Bone marrow exam (12/09/2024 10:15 AM EDT) Case Report Bone Marrow Case: [id number] Authorizing Provider: Virgen Vargas MD Collected: 12/09/2024 1015 Ordering Location: [facility] Hematology/BMT and Received: 12/09/2024 1145 Cellular Therapy Program Pathologist: Gerry Jensen MD Specimens: A) - Bone Marrow Aspirate, right B) - Bone Marrow Biopsy, right C) - Peripheral Blood for Bone Marrow 12/19/2024 5:35 PM EDT [facility] Cytogenetics Report, Addendum Chromosome Analysis Result: [...] were observed on this patient's previous specimen [id number] and indicate persistent disease. 12/19/2024 5:35 PM EDT [facility] Addendum electronically signed by Gerry Jensen MD on 12/19/2024 at 1735 EDT Final Diagnosis PERIPHERAL BLOOD AND BONE MARROW, RIGHT POSTERIOR ILIAC CREST, (PERIPHERAL SMEAR, ASPIRATE SMEAR, AND CORE BIOPSY): - NORMOCELLULAR BONE MARROW WITH ERYTHROID HYPERPLASIA, VIRTUALLY ABSENT MATURING GRANULOPOIESIS, AND 14% BLASTS, SEE COMMENT. 12/19/2024 5:35 PM EDT [facility] at 1706 EDT Comment While by flow cytometric analysis blasts constitute 23% of cellularity, the majority of bone marrow cellularity consists of erythroid precursors that are removed by flow cytometry. This leads to the discrepancy between the percentage of blasts by flow cytometry and morphologic examination. Nonetheless, the findings are consistent with some residual disease. 12/19/2024 5:35 PM EDT [facility] Clinical Information AML s/p cycle 2 12/19/2024 5:35 PM EDT [facility] CBC and Differential PERIPHERAL BLOOD: 12/09/2024: [...] Platelets are decreased. 12/19/2024 5:35 PM EDT [facility] Bone Marrow Differential BONE MARROW DIFFERENTIAL: 400 cells Normal Patient Neutrophils 15-50 0 Metamyelocytes 4-19 0 Myelocytes 1-18 1 Promyelocytes 1-8 0 Blasts 0-2 14 Monocytes 0-5 3 Erythroid 16-38 76 Lymphocytes 3-24 1 Eosinophils 0-6 0 Basophils 0-2 0 Plasma cells 0-4 5 Other 12/19/2024 5:35 PM EDT [facility] Aspirate Smear The bone marrow aspirate [...] predominantly normal morphology. 12/19/2024 5:35 PM T [facility] Core Biopsy The core biopsy is small and shows 5 mm of a normocellular bone marrow with a cellularity of approximately 30% that is predominantly comprised of erythroid precursors. Erythropoiesis is left-shifted, but maturing. Maturing granulopoiesis is virtually absent. Myeloid cells almost entirely consists of immature precursors. Megakaryocytes are decreased and exhibit predominantly normal morphology. 12/19/2024 5:35 PM T [facility] Flow Cytometry Interpretation Flow cytometric analysis shows approximately 23% population of CD34 positive myeloid blasts expressing CD34, CD117, CD13, CD33, HLA-DR, partial CD7, variable CD123, partial CD38, and moderate CD45 ([id number]). 12/19/2024 5:35 PM T [facility] Gross Description B. RIGHT A single specimen is received in formalin labeled bone marrow biopsy right posterior iliac crest and consists of 1 piece(s) of red/white tissue measuring 0.7 cm in length 0.2 cm in diameter. The specimen is submitted in to Histology for decalcification and routine processing. Cold Time: <1m 12/19/2024 5:35 PM T [facility] Note: A resident was involved in the service. I attest I examined the relevant preparations for the specimens and confirmed the diagnosis or interpretation. 12/19/2024 5:35 PM T [facility] Bone Marrow Peripheral blood specimen [...] PATHOLOGY ORDERABLES Edit ed Result - Final [facility] [address] [place] [address] * (ABNORMAL) Comprehensive metabolic panel (12/09/2024 8:45 AM EDT) Glucose, Plasma 103(H) 74 - 99 mg/dL 12/09/2024 9:33 AM EDT [facility] BUN, Plasma 9 8 - 23 mg/dL 12/09/2024 9:33 AM EDT [facility] Creatinine, Plasma 0.78 0.70 - 1.20 mg/dL 12/09/2024 9:33 AM EDT [facility] BUN/Creatinine Ratio 12 12/09/2024 9:33 AM EDT [facility] Sodium, Plasma 140 136 - 145 mmol/L 12/09/2024 9:33 AM EDT [facility] Potassium, Plasma 3.9 3.6 - 4.9 mmol/L 12/09/2024 9:33 AM EDT [facility] Chloride, Plasma 109(H) 97 - 107 mmol/L 12/09/2024 9:33 AM EDT [facility] CO2, Plasma 21(L) 22 - 29 mmol/L 12/09/2024 9:33 AM EDT [facility] Anion Gap 10 6 - 16 mmol/L 12/09/2024 9:33 AM EDT [facility] Total Calcium, Plasma 9.0 8.9 - 10.2 mg/dL 12/09/2024 9:33 AM EDT [facility] Total Protein 6.6 6.3 - 7.9 g/dL 12/09/2024 9:33 AM EDT [facility] Albumin, Plasma 3.9 3.5 - 5.2 g/dL 12/09/2024 9:33 AM EDT [facility] AST, Plasma 31 10 - 50 U/L 12/09/2024 9:33 AM EDT [facility] ALT, Plasma 37 10 - 50 U/L 12/09/2024 9:33 AM EDT [facility] Alkaline Phosphatase, Plasma 81 40 - 115 U/L 12/09/2024 9:33 AM EDT [facility] Total Bilirubin, Plasma 0.6 0.2 - 1.1 mg/dL 12/09/2024 9:33 AM EDT [facility] eGFRcr 96.5 mL/min/1.7 3m*2 12/09/2024 9:33 AM EDT [facility] Comment:Reported eGFRcr in m L/min/1.73m2 is based the CKD-EPI 2020 equation that does not use a race coefficient. Blood Venous blood specimen / Unknown Venipuncture / Unknown 12/09/2024 8:45 AM EDT 12/09/2024 9:01 AM EDT Virgen Vargas MD LAB BLOOD ORDERABLES Final Re sult [facility] [address] [place] [address] * (ABNORMAL) CBC and differential (12/09/2024 8:45 AM EDT) WBC Count 0.68(LL) 3.70 - 10.30 10*3/uL LAB HEMATOLOGY METHOD 12/09/2024 11:45 AM EDT [facility] RBC Count 2.34(L) 4.60 - 6.10 10*6/uL LAB HEMATOLOGY METHOD 12/09/2024 11:45 AM EDT [facility] HGB 7.5(L) 13.7 - 17.5 g/dL LAB HEMATOLOGY METHOD 12/09/2024 11:45 AM EDT [facility] HCT 20.6(L) 40.0 - 51.0 % LAB HEMATOLOGY METHOD 12/09/2024 11:45 AM EDT [facility] Platelet Count 24(L) 155 - 369 10*3/uL LAB HEMATOLOGY METHOD 12/09/2024 11:45 AM EDT [facility] MCV 88 79 - 98 fL LAB HEMATOLOGY METHOD 12/09/2024 11:45 AM EDT [facility] MCH 32.1(H) 26.0 - 32.0 pg LAB HEMATOLOGY METHOD 12/09/2024 11:45 AM EDT [facility] MCHC 36.4(H) 30.7 - 35.5 g/dL LAB HEMATOLOGY METHOD 12/09/2024 11:45 AM EDT [facility] RDW 17.1(H) 11.5 - 14.5 % LAB HEMATOLOGY METHOD 12/09/2024 11:45 AM EDT [facility] MPV 9.2 8.8 - 12.5 [...] ORDERABLES Final Re sult [facility] [address] [place] [address] * IR Port Placement 5+ Years (12/01/2024 [...] for port placement. New AML, starting chemotherapy. [employer] Business Analyst: Mckinley Lee MD Secondary Waffle Machine Operator: Dr. David Holt Rad Dose: 6 mGy [...] was placed supine on the fluoro table. [employer] ultrasonography revealed the vein to be compressible [...] with no evidence of complication. Device: 6 Syrian port catheter cut to length of 25 cm. COMPARISON: None. FINDINGS: Patent R IJV COMPLICATION: No. Procedure Note Mckinley Lee MD - 12/02/2024 CLINICAL INDICATION: 69M here for port placement. New AML, starting chemotherapy. [employer] Business Analyst: Mckinley Lee MD Secondary Waffle Machine Operator: Dr. David Holt Rad Dose: 6 mGy [...] patient was placed supine on the fluoro table.[employer] Management Internship ultrasonography revealed the vein to be compressible [...] well with no evidence ofcomplication. Device: 6 Syrian port catheter cut to length of 25 cm. COMPARISON: None. FINDINGS: Patent R IJV COMPLICATION: No. IMPRESSION: Successful placement of subcutaneous chest port; line is ready for use.Tip is at cavoatrial junction. PLAN: Postprocedural monitoring for 30 minutes Follow-up in [facility] clinic in 1 week Line [...] MD on 12/02/2024 7:02 AM Isaura Wynn SEWING SUPERVISOR IMG IR PROCEDURES Final Result * (ABNORMAL) CBC and differential (11/20/2024 1:49 PM EDT) WBC Count 0.83(LL) 3.70 - 10.30 10*3/uL LAB HEMATOLOGY METHOD 11/20/2024 5:06 PM EDT [facility] RBC Count 2.13(L) 4.60 - 6.10 10*6/uL LAB HEMATOLOGY METHOD 11/20/2024 5:06 PM EDT [facility] HGB 7.5(L) 13.7 - 17.5 g/dL LAB HEMATOLOGY METHOD 11/20/2024 5:06 PM EDT [facility] HCT 20.4(L) 40.0 - 51.0 % LAB HEMATOLOGY METHOD 11/20/2024 5:06 PM EDT [facility] Platelet Count 10(LL) 155 - 369 10*3/uL LAB HEMATOLOGY METHOD 11/20/2024 5:06 PM EDT [facility] MCV 96 79 - 98 fL LAB HEMATOLOGY METHOD 11/20/2024 5:06 PM EDT [facility] MCH 35.2(H) 26.0 - 32.0 pg LAB HEMATOLOGY METHOD 11/20/2024 5:06 PM EDT [facility] MCHC 36.8(H) 30.7 - 35.5 g/dL LAB HEMATOLOGY METHOD 11/20/2024 5:06 PM EDT [facility] RDW 19.7(H) 11.5 - 14.5 % LAB HEMATOLOGY METHOD 11/20/2024 5:06 PM EDT [facility] MPV LAB HEMATOLOGY METHOD 11/20/2024 5:06 PM EDT [facility] Comment:Not Measured nRBC 2.4(H) <=0.0 per 100 WBCs LAB HEMATOLOGY METHOD 11/20/2024 5:06 PM EDT [facility] Blood Venous blood specimen / Unknown Venipuncture / Unknown 11/20/2024 1:49 PM EDT 11/20/2024 1:51 PM EDT Narrative [facility] - 11/20/2024 5:06 PM EDT Therapeutic [...] MD LAB BLOOD ORDERABLES Final Re sult [facility] [address] [place] [address] [facility] [address] [place] [address] * Type and screen (11/18/2024 12:21 PM [...] TEST ORDERABLES Final Result BLOOD BANK [address] [place] [address], * (ABNORMAL) CBC and Differential (11/18/2024 10:00 AM EDT) WBC Count 0.78(LL) 3.70 - 10.30 10*3/uL LAB HEMATOLOGY METHOD 11/18/2024 12:28 PM EDT [facility] RBC Count 2.01(L) 4.60 - 6.10 10*6/uL LAB HEMATOLOGY METHOD 11/18/2024 12:28 PM EDT [facility] HGB 7.2(L) 13.7 - 17.5 g/dL LAB HEMATOLOGY METHOD 11/18/2024 12:28 PM EDT [facility] HCT 19.9(L) 40.0 - 51.0 % LAB HEMATOLOGY METHOD 11/18/2024 12:28 PM EDT [facility] Platelet Count 5(LL) 155 - 369 10*3/uL LAB HEMATOLOGY METHOD 11/18/2024 12:28 PM EDT [facility] MCV 99(H) 79 - 98 fL LAB HEMATOLOGY METHOD 11/18/2024 12:28 PM EDT [facility] MCH 35.8(H) 26.0 - 32.0 pg LAB HEMATOLOGY METHOD 11/18/2024 12:28 PM EDT [facility] MCHC 36.2(H) 30.7 - 35.5 g/dL LAB HEMATOLOGY METHOD 11/18/2024 12:28 PM EDT [facility] RDW 20.6(H) 11.5 - 14.5 % LAB HEMATOLOGY METHOD 11/18/2024 12:28 PM EDT [facility] MPV LAB HEMATOLOGY METHOD 11/18/2024 12:28 PM EDT [facility] Comment:Not Measured nRBC 6.4(H) <=0.0 per 100 WBCs LAB HEMATOLOGY METHOD 11/18/2024 12:28 PM EDT [facility] Differential Type Automated LAB HEMATOLOGY METHOD 11/18/2024 12:28 PM EDT [facility] Neutrophils % 12 % LAB HEMATOLOGY METHOD 11/18/2024 12:28 PM EDT [facility] Lymphocytes % 80 % LAB HEMATOLOGY METHOD 11/18/2024 12:28 PM EDT [facility] Monocytes % 8 % LAB HEMATOLOGY METHOD 11/18/2024 12:28 PM EDT [facility] Eosinophils % 0 % LAB HEMATOLOGY METHOD 11/18/2024 12:28 PM EDT [facility] Basophils % 0 % LAB HEMATOLOGY METHOD 11/18/2024 12:28 PM EDT [facility] Immature Granulocytes % 0 % LAB HEMATOLOGY METHOD 11/18/2024 12:28 PM EDT [facility] Neutrophils Absolute 0.09(LL) 1.60 - 6.10 10*3/uL LAB HEMATOLOGY METHOD 11/18/2024 12:28 PM EDT [facility] Lymphocytes Absolute 0.63(L) 1.20 - 3.90 10*3/uL LAB HEMATOLOGY METHOD 11/18/2024 12:28 PM EDT [facility] Monocytes Absolute 0.06(L) 0.30 - 0.90 10*3/uL LAB HEMATOLOGY METHOD 11/18/2024 12:28 PM EDT [facility] Eosinophils Absolute 0.00 0.00 - 0.50 10*3/uL LAB HEMATOLOGY METHOD 11/18/2024 12:28 PM EDT [facility] Basophils Absolute 0.00 0.00 - 0.10 10*3/uL LAB HEMATOLOGY METHOD 11/18/2024 12:28 PM EDT [facility] Immature Granulocytes Absolute 0.00 0.00 - 0.06 10*3/uL LAB HEMATOLOGY METHOD 11/18/2024 12:28 PM EDT [facility] Blood Venous blood specimen / Unknown Venipuncture / Unknown 11/18/2024 10:00 AM EDT 11/18/2024 10:14 AM EDT Narrative [facility] - 11/18/2024 12:28 PM EDT Therapeutic decision making should be based on absolute values, rather than percentages. us Virgen Vargas MD LAB BLOOD ORDERABLES Final Re sult [facility] [address] [place] [address] * (ABNORMAL) Comprehensive Metabolic Panel, Plasma (11/18/2024 10:00 AM EDT) [facility] Glucose, Plasma 105(H) 74 - 99 mg/dL 11/18/2024 10:44 AM EDT [facility] BUN, Plasma 12 8 - 23 mg/dL 11/18/2024 10:44 AM EDT [facility] Creatinine, Plasma 1.02 0.70 - 1.20 mg/dL 11/18/2024 10:44 AM EDT [facility] BUN/Creatinine Ratio 12 11/18/2024 10:44 AM EDT [facility] Sodium, Plasma 139 136 - 145 mmol/L 11/18/2024 10:44 AM EDT [facility] Potassium, Plasma 4.2 3.6 - 4.9 mmol/L 11/18/2024 10:44 AM EDT [facility] Chloride, Plasma 109(H) 97 - 107 mmol/L 11/18/2024 10:44 AM EDT [facility] CO2, Plasma 21(L) 22 - 29 mmol/L 11/18/2024 10:44 AM EDT [facility] Anion Gap 9 6 - 16 mmol/L 11/18/2024 10:44 AM EDT [facility] Total Calcium, Plasma 8.9 8.9 - 10.2 mg/dL 11/18/2024 10:44 AM EDT [facility] Total Protein 6.8 6.3 - 7.9 g/dL 11/18/2024 10:44 AM EDT [facility] Albumin, Plasma 3.9 3.5 - 5.2 g/dL 11/18/2024 10:44 AM EDT [facility] AST, Plasma 103(H) 10 - 50 U/L 11/18/2024 10:44 AM EDT [facility] ALT, Plasma 94(H) 10 - 50 U/L 11/18/2024 10:44 AM EDT [facility] Alkaline Phosphatase, Plasma 94 40 - 115 U/L 11/18/2024 10:44 AM EDT [facility] Total Bilirubin, Plasma 0.6 0.2 - 1.1 mg/dL 11/18/2024 10:44 AM EDT [facility] eGFRcr 79.6 mL/min/1.7 3m*2 11/18/2024 10:44 AM EDT [facility] Comment:Reported eGFRcr in m L/min/1.73m2 is based the CKD-EPI 2020 equation that does not use a race coefficient. Blood Venous blood specimen / Unknown Venipuncture / Unknown 11/18/2024 10:00 AM EDT 11/18/2024 10:13 AM EDT us Virgen Vargas MD LAB BLOOD ORDERABLES Final Re sult [facility] [address] [place] [address] documented in this encounter Visit Diagnoses Diagnosis [...] documented as of this encounter Care Teams Cigar Wrapper Relationship Specialty Start Date End Date Zhao Harris MD [address] [place] [address] PCP - General 12/03/20 documented as of this encounter
--- OUTSIDE RECORDS SUMMARY | 2024-11-18 12:25 | XMS_ITS | Encounter Summary ---
Author Organization [facility] Address [address] [place] [address] Care Team Providers Care Dupligraph Operator Name Role Phone Zhao Harris MD Primary Care Provider + [phone] Reason for Visit * Episode Based Medications (Routine) - Authorized Specialty Diagnoses / Procedures Referred By Justice mcgee Referred To Contact Diagnoses Myelodysplasia (myelodysplastic syndrome) (CMS/HCC) Procedures Azacitidine Daily x 7 / Venetoclax Every 28 Days Virgen Vargas MD [address] [address] Phone: tel: fax: iVrgen Vargas MD [address] [address] Phone: tel: fax: Referral ID Status Reason Start Date Expiration Date V isits Requested Visits Authorized [id number] Authorized 10/20/2024 04/21/2026 1 91 Encounter Details Date Type Department Care Team (Latest Contact Info) Description 11/18/2024 12:25 PM EDT - 11/18/2024 11:59 PM EDT Hospital Encounter [facility] Infusion Clinic [address] [place] [phone] Myelodysplasia (myelodysplastic syndrome) (CMS/HCC) (Primary Dx); Thrombocytopenia [...] drink first t manav in the morning (EYE-COLLEGE PROFESSOR) to steady your nerves or to get [...] 5 MG tabletIndications :Coronary artery disease involving [place] heart with angina pectoris, unspecified vessel or lesion type (CMS/HCC),Hyperte nsion, unspecified type Take 1 tablet (5 mg) by mouth daily. 90 tablet 3 09/11/2024 HYDROcodone-aceta minophen ([place]) 5-325 MG tablet Take 1 tablet by mouth every 6 hours as needed. 11/07/2024 levoFLOXacin (Levaquin) 500 MG tabletIndications :Myelodysplasia (myelodysplastic syndrome) (CMS/HCC) Take 1 tablet (500 mg) by mouth daily. 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 30 tablet 3 10/23/2024 venetoclax (Venclexta) 10 MG tabletIndications :Myelodysplasia (myelodysplastic syndrome) (CMS/HCC) Take 2 tablets by mouth daily. Days 1-14. Take with 50 mg tablets for a total of 70 mg daily 28 tablet 11/18/2024 5 venetoclax (Venclexta) 50 MG tabletIndications :Myelodysplasia (myelodysplastic syndrome) (CMS/HCC) Take 1 tablet by mouth daily. Days 1-14 14 tablet 11/18/2024 5 aspirin 81 MG chewable tablet Chew 1 tablet (81 mg) 1 (one) time each day. aspirin 81 mg tablet 30 tablet 11 11/29/2023 amLODIPine (Norvasc) 2.5 MG tabletIndications :Coronary artery disease involving [place] heart with angina pectoris, unspecified vessel or [...] 01/06/2025 8:30 AM EDT Clinical Support [facility] Hematology/BMT and Cellular Therapy Program [address] [place] [address] 01/06/2025 9:00 AM EDT Procedure Visit [facility] CC Hematology/BMT and Cellular Therapy Program [address] [phone] Kierra Novak, SPORTS ANCHOR 800 [facility] [address] [place] [phone] 01/13/2025 9:30 AM EDT Clinical Support P[facility] CC Hematology/BMT and Cellular Therapy Program [address] [phone] 01/13/2025 10:00 AM EDT Office Visit P[facility] CC Hematology/BMT and Cellular Therapy Program [address] [phone] Isaura Wynn, SPORTS ANCHOR 800 [facility] [address] [place] [phone] 01/13/2025 11:30 AM EDT Appointment P[facility] H Infusion [address] [place] [phone] 01/14/2025 2:00 PM EDT Appointment P[facility] H Infusion [address] [place] [address] 01/15/2025 2:00 PM EDT Appointment P[facility] H Infusion [address] [place] [address] 01/16/2025 2:00 PM EDT Appointment [facility] H Infusion [address] [place] [address] 01/17/2025 2:00 PM EDT Appointment P[facility] H Infusion [address] [place] [address] 01/18/2025 2:00 PM EDT Appointment [facility] H Infusion [address] [place] [address] 01/19/2025 2:00 PM EDT Appointment [facility] H Infusion [address] [place] [phone] 03/10/2025 11:20 AM EDT Office Visit Pav CC Head, Neck & Respiratory 800 [facility], 2nd [place] [address] Elsa Razo, SPORTS ANCHOR [address] [place] [address] documented as of this encounter Procedures Procedure [...] Transfuse RBC, Irradiated (11/18/2024 3:50 PM EDT) us Kayli CHIU BLOOD TRANSFUSION ORDERA BLES Final Result * Transfuse RBC: 1 Units, Irradiated (11/18/2024 3:50 PM EDT) us Kayli CHIU BLOOD TRANSFUSION ORDERA BLES Final Result * (ABNORMAL) Platelet count (11/18/2024 1:59 PM EDT) Platelet Count 36(L) 155 - 369 10*3/uL LAB HEMATOLOGY METHOD 11/18/2024 2:[address] [facility] Blood Venous blood specimen / Unknown Venipuncture / Unknown 11/18/2024 1:59 PM EDT 11/18/2024 2:01 PM EDT Virgen Vargas MD LAB BLOOD ORDERABLES Final Re sult [facility] [address] [place] [address] * Transfuse platelets (11/18/2024 1:48 PM EDT) Kayli Ospina PA BLOOD TRANSFUSION ORDERA BLES Final Result * Transfuse platelets: 1 Units (11/18/2024 1:48 PM EDT) Kayli Ospina PA BLOOD TRANSFUSION ORDERA BLES Final Result * [...] 1:08 PM EDT 11/19/2024 7:21 AM EDT Juwan Horton MD LAB BLOOD BANK TEST ORDERAB LES Final Result Performing Organization Address [facility] Co de Phone Number BLOOD BANK [address] * Prepare Leukocyte Reduced Platelets: 1 Units (11/18/2024 12:33 PM EDT) Product Code [id number] BLOO D BANK Dispense Status Transfused BLOOD BANK Blood Expiration Date [id number] BLOOD BANK Unit Number [id number] CH B LOOD BANK Product Blood Type 7300 BLOOD BANK Blood Type B+ BLOOD BANK Blood Venous blood specimen / Unknown Kayli CHIU BLOOD BANK PRODUCT ORDER VIKAS Final Result Performing Organization Address [facility] Co de Phone Number BLOOD BANK [address] * Prepare Leukocyte Reduced RBC: 1 Units, Irradiated (11/18/2024 12:33 PM EDT) Product Code [id number] BLOO D BANK Dispense Status Transfused BLOOD BANK Blood Expiration Date [id number] BLOOD BANK Unit Number [id number] CH B LOOD BANK Product Blood Type 9500 BLOOD BANK Blood Type O- BLOOD BANK Crossmatch Compatible BLOOD BANK Other Kayli CHIU BLOOD BANK PRODUCT ORDER VIKAS Final Result Performing Organization Address [facility] Co de Phone Number BLOOD BANK [address] documented in this encounter Visit Diagnoses [...] Sun11/18/24 at 1300, RoutineIndications:Myelodyspla haim (myelodysplastic syndrome) ([facility]/HCC) Given 11/18/2024 12:48 PM EDT 16 mg [...] documented as of this encounter Care Teams Dupligraph Operator Relationship Specialty Start Date End Date Zhao Harris MD [address] [place] [address] PCP - General 12/03/20 documented as of this encounter
--- OUTSIDE RECORDS SUMMARY | 2024-11-19 14:00 | XMS_ITS | Encounter Summary ---
Author Organization [facility] Address [address] [place] [address] Care Team Providers Care Grain Inspector Name Role Phone Zhao Harris MD Primary Care Provider + [phone] Reason for Visit * Episode Based Medications (Routine) - Authorized Specialty Diagnoses / Procedures Referred By Justice mcgee Referred To Contact Diagnoses Myelodysplasia (myelodysplastic syndrome) (CMS/HCC) Procedures Azacitidine Daily x 7 / Venetoclax Every 28 Days Virgen Vargas MD [address] [phone] Phone: tel: fax: Virgen Vargas MD [address] [phone] Phone: tel: fax: Referral ID Status Reason Start Date Expiration Date V isits Requested Visits Authorized [id number] Authorized 10/20/2024 04/21/2026 1 91 Encounter Details Date Type Department Care Team (Latest Contact Info) Description 11/19/2024 2:00 PM EDT - 11/19/2024 11:59 PM EDT Hospital Encounter [facility] Infusion [facility] [address] [place] [phone] Myelodysplasia (myelodysplastic syndrome) (CMS/HCC) (Primary Dx) Discharge [...] drink first t manav in the morning (EYE-ANIMAL HANDLER) to steady your nerves or to get [...] 5 MG tabletIndications :Coronary artery disease involving redding heart with angina pectoris, unspecified vessel or lesion type (CMS/HCC),Hyperte nsion, unspecified type Take 1 tablet (5 mg) by mouth daily. 90 tablet 3 09/11/2024 HYDROcodone-aceta minophen ([place]) 5-325 MG tablet Take 1 tablet by mouth every 6 hours as needed. 11/07/2024 levoFLOXacin (Levaquin) 500 MG tabletIndications :Myelodysplasia (myelodysplastic syndrome) (CMS/HCC) Take 1 tablet (500 mg) by mouth daily. 30 tablet 3 10/14/2024 nitroglycerin (Nitrostat) 0.4 MG SL tabletIndications :Coronary artery disease involving redding heart with angina pectoris, unspecified vessel or lesion type (CMS/HCC) Place 1 tablet (0.4 mg) under the tongue every 5 (five) minutes as needed for chest pain. 10 tablet 09/11/2024 posaconazole (Noxafil) [address] tabletIndications [...] of 70 mg daily 28 tablet 11/18/2024 venetoclax (Venclexta) 50 MG tabletIndications :Myelodysplasia (myelodysplastic syndrome) (CMS/HCC) Take 1 tablet by mouth daily. Days 1-14 14 tablet 11/18/2024 aspirin 81 MG chewable tablet Chew 1 tablet (81 mg) 1 (one) time each day. aspirin 81 mg tablet 30 tablet 11 11/29/2023 amLODIPine (Norvasc) 2.5 MG tabletIndications :Coronary artery disease involving redding heart with angina pectoris, unspecified vessel or [...] [address] [place] [address] 01/06/2025 9:00 AM EDT Procedure Visit [facility]BMT [facility] Cellular Therapy Program [address] [phone] Kierra Novak, ANALYTICAL ENGINEER 800 [facility] [address] [place] [phone] 01/13/2025 9:30 AM EDT Clinical Support [facility]/BMT [facility] Cellular Therapy Program [address] [phone] 01/13/2025 10:00 AM EDT Office Visit [facility]BMT [facility] Cellular Therapy Program [address] [phone] Isaura Wynn, ANALYTICAL ENGINEER 800 [facility] [address] [place] [phone] 01/13/2025 11:30 AM EDT Appointment [facility] [address] [place] [address] 01/14/2025 2:00 PM EDT Appointment [facility] [address] [place] [address] 01/15/2025 2:00 PM EDT Appointment [facility] [address] [place] [address] 01/16/2025 2:00 PM EDT Appointment [facility] [address] [place] [address] 01/17/2025 2:00 PM EDT Appointment [facility] [address] [place] [address] 01/18/2025 2:00 PM EDT Appointment [facility] [address] [place] [address] 01/19/2025 2:00 PM EDT Appointment [facility] [address] [place] [address] 03/10/2025 11:20 AM EDT Office Visit [facility] Head[facility] Neck [facility] Respiratory 800 [facility], [address]nd [place] [phone] Elsa Razo, ANALYTICAL ENGINEER [address] [place] [phone] documented as of this encounter Visit Diagnoses [...] documented as of this encounter Care Teams Grain Inspector Relationship Specialty Start Date End Date Zhao Harris MD [address] [facility] [address] [phone] PCP - General 12/03/20 documented as of this encounter
--- OUTSIDE RECORDS SUMMARY | 2024-11-20 13:36 | XMS_ITS | Encounter Summary ---
Author Organization [facility] Address [address] [place] [address] Care Team Providers Care Vacuum Closing Machine Operator Name Role Phone Zhao Harris MD Primary Care Provider + [phone] Reason for Visit * Episode Based Medications (Routine) - Authorized Specialty Diagnoses / Procedures Referred By Justice mcgee Referred To Contact Diagnoses Myelodysplasia (myelodysplastic syndrome) (CMS/HCC) Procedures Azacitidine Daily x 7 / Venetoclax Every 28 Days Virgen Vargas MD [address] [address] Phone: tel: fax: Virgen Vargas MD [address] [address] Phone: tel: fax: Referral ID Status Reason Start Date Expiration Date V isits Requested Visits Authorized [id number] Authorized 10/20/2024 04/21/2026 1 91 Encounter Details Date Type Department Care Team (Latest Contact Info) Description 11/20/2024 1:36 PM EDT - 11/20/2024 2:05 PM EDT Hospital Encounter [facility] Infusion Clinic [address] [place] [phone] Myelodysplasia (myelodysplastic syndrome) (CMS/HCC) (Primary Dx); Thrombocytopenia [...] drink first t manav in the morning (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) to steady your nerves or to get [...] Sign Reading Time Taken Comments Blood Pressure 118/72 11/20/2024 6:10 PM EDT Pulse 57 11/20/2024 6:10 PM EDT Temperature 37.1 C (98.8 F) 11/20/2024 6:10 PM EDT Respiratory Rate 18 11/20/2024 6:10 PM EDT Oxygen Saturation 100% 11/20/2024 6:10 PM EDT Inhaled Oxygen Concentration - - Weight 88 kg (194 lb 0.1 oz) 11/20/2024 1:39 PM EDT Height 170.2 cm (5' 7 ) 11/20/2024 1:39 PM EDT Body Mass Index 30.39 11/20/2024 1:39 PM EDT documented in this encounter Medications at Time of Discharge acyclovir (Zovirax) 800 MG tabletIndications :Myelodysplasia (myelodysplastic syndrome) (CMS/HCC) Take 1 tablet (800 mg) by mouth in the morning and 1 tablet (800 mg) before bedtime. 60 tablet 3 10/14/2024 bisoprolol (Zebeta) 5 MG tabletIndications :Coronary artery disease involving [place] heart with angina pectoris, unspecified vessel or lesion type (CMS/HCC),Hyperte nsion, unspecified type Take 1 tablet (5 mg) by mouth daily. 90 tablet 3 09/11/2024 HYDROcodone-aceta minophen (Riner) 5-325 MG tablet Take 1 tablet by mouth every 6 hours as needed. 11/07/2024 levoFLOXacin (Levaquin) 500 MG tabletIndications :Myelodysplasia (myelodysplastic syndrome) (CMS/HCC) Take 1 tablet (500 mg) by mouth daily. 30 tablet 3 10/14/2024 nitroglycerin (Nitrostat) 0.4 MG SL tabletIndications :Coronary artery disease involving [place] heart with angina pectoris, unspecified vessel or [...] 2.5 MG tabletIndications :Coronary artery disease involving [place] heart with angina pectoris, unspecified vessel or [...] the same time. 28 patch 09/29/2024 5 documented as of this encounter Plan of Treatment Upcoming Encounters Date Type Department Care Team ([facility] st Contact Info) Description 01/06/2025 8:30 AM EDT Clinical Support [facility] Hematology/BMT and Cellular Therapy Program [address] [phone] 01/06/2025 9:00 AM EDT Procedure Visit [facility] Hematology/BMT and Cellular Therapy Program [address] [phone] Kierra Novak, PIANO INSTRUCTOR 800 [facility] [address] [place] [phone] 01/13/2025 9:30 AM EDT Clinical Support [facility] Hematology/BMT and Cellular Therapy Program 750 [facility], [address] [place] [phone] 01/13/2025 10:00 AM EDT Office Visit [facility] Hematology/BMT and Cellular Therapy Program 750 [facility], [address] [place] [phone] Isaura Wynn, PIANO INSTRUCTOR 800 [facility] [address] [place] [phone] 01/13/2025 11:30 AM EDT Appointment [facility] [address] [place] [address] 01/14/2025 2:00 PM EDT Appointment [facility] [address] [place] [address] 01/15/2025 2:00 PM EDT Appointment [facility] [address] [place] [address] 01/16/2025 2:00 PM EDT Appointment [facility] [address] [place] [address] 01/17/2025 2:00 PM EDT Appointment [facility] [address] [place] [address] 01/18/2025 2:00 PM EDT Appointment [facility] [address] [place] [address] 01/19/2025 2:00 PM EDT Appointment [facility] [address] [place] [address] 03/10/2025 11:20 AM EDT Office Visit [facility] 800 [facility], [address] [place] [address] Elsa Razo, PIANO INSTRUCTOR [address] [place] [address] Pending Results Name Type Priority Associated Diagnoses Date/Time Transfuse platelets: 1 Units Transfusion Administration Routine Myelodysplasia (myelodysplastic syndrome) (CMS/HCC) Thrombocytopenia (CMS/HCC) 11/20/2024 5:06 PM EDT Transfuse platelets Transfusion Administration Routine Myelodysplasia (myelodysplastic syndrome) (CMS/HCC) Thrombocytopenia (CMS/HCC) 11/20/2024 5:09 PM EDT documented as of this encounter Procedures Procedure Name Priority Date/Time Associated Diagnosis Comments PLATELET COUNT, BLOOD STAT 11/20/2024 6:15 PM EDT TRANSFUSE PLATELETS Routine 11/20/2024 5 :09 PM EDT Myelodysplasia (myelodysplastic syndrome) (CMS/HCC) Thrombocytopenia (CMS/HCC) EXCEPTION TO STANDARD PRACTICE, PATHOLOGIST INTERPRETATION Routine 11/20/2024 4:44 PM EDT Myelodysplasia (myelodysplastic syndrome) (CMS/HCC) TRANSFUSE RED BLOOD CELLS Routine 11/20/2024 2:58 PM EDT Myelodysplasia (myelodysplastic syndrome) (CMS/HCC) Thrombocytopenia (CMS/HCC) PREPARE PLATELETS Routine 11/20/2024 2:0 1 PM EDT Myelodysplasia (myelodysplastic syndrome) (CMS/HCC) Thrombocytopenia (CMS/HCC) PREPARE RBC Routine 11/20/2024 2:01 PM EDT Myelodysplasia (myelodysplastic syndrome) (CMS/HCC) Thrombocytopenia (CMS/HCC) MORPHOLOGY Routine 11/20/2024 1:49 PM EDT Myelodysplasia (myelodysplastic syndrome) (CMS/HCC) MANUAL DIFFERENTIAL Routine 11/20/2024 1 :49 PM EDT Myelodysplasia (myelodysplastic syndrome) (CMS/HCC) PERIPHERAL BLOOD SMEAR, PATHOLOGIST INTERPRETATION Routine 11/20/2024 1:49 PM EDT Myelodysplasia (myelodysplastic syndrome) (CMS/HCC) CBC WITH AUTO DIFFERENTIAL Routine 11/20/2024 1:49 PM EDT Myelodysplasia (myelodysplastic syndrome) (CMS/HCC) COMPREHENSIVE METABOLIC PANEL, PLASMA Routine 11/20/2024 1:49 PM EDT Myelodysplasia (myelodysplastic syndrome) (CMS/HCC) documented in this encounter Results * (ABNORMAL) Platelet Count, Blood (11/20/2024 6:15 PM EDT) Platelet Count 43(L) 155 - 369 10*3/uL LAB HEMATOLOGY METHOD 11/20/2024 6:40 PM EDT [facility] Blood Venous blood specimen / Unknown Venipuncture / Unknown 11/20/2024 6:15 PM EDT 11/20/2024 6:33 PM EDT Virgen Vargas MD LAB BLOOD ORDERABLES Final Re sult [facility] [address] [place] [address] * Transfuse RBC, Irradiated (11/20/2024 5:04 PM EDT) Kayli CHIU BLOOD TRANSFUSION ORDERA BLES Final Result * Transfuse RBC: 1 Units, Irradiated (11/20/2024 5:04 PM EDT) Kayli CHIU BLOOD TRANSFUSION ORDERA BLES Final Result * Exception to Standard Practice, Pathologist Interpretation (11/20/2024 4:44 PM EDT) Clinical Diagnosis, Exception to Standard Practice thrombocytopenia 11/21/2024 10:21 AM EDT BLOOD BANK Comment:These results have b een appended to a previously final verified report. Interpretation , Exception to Standard Practice Your patient, who is RhD-negative, required transfusion of 1 unit of apheresis platelets on 11/20/24. Considering the available inventory and the necessity [...] isoimmunization may be considered, if clinically indicated. 11/21/2024 10:21 AM EDT BLOOD BANK Pathologist Signature, Exception to Standard Practice Reviewed by: Jakob Granados MD 11/21/2024 10:21 AM EDT [facility]LO[facility] LAB CP ASR DISCLAIMER No 11/21/2024 10:21 AM EDT BLOOD BANK Blood Bank Lab Only 11/20/2024 4:44 PM EDT 11/21/2024 10:09 AM EDT Juwan Horton MD LAB BLOOD BANK TEST ORDERAB LES Edited Result - Final BLOOD BANK [address] [place] [address], [place] * Prepare Leukocyte Reduced Platelets: 1 Units (11/20/2024 2:01 PM EDT) Product Code C7718K88 CH BLOO D BANK Dispense Status Transfused BLOOD BANK Blood Expiration Date BLOOD BANK Unit Number [id number] CH B LOOD BANK Product Blood Type 8400 BLOOD BANK Blood Type AB+ BLOOD BANK Blood Venous blood specimen / Unknown Kayli CHIU BLOOD BANK PRODUCT ORDER VIKAS Final Result BLOOD BANK [address] [place] [address], [place] * Prepare Leukocyte Reduced RBC: 1 Units, Irradiated (11/20/2024 2:01 PM EDT) Product Code [id number] CH BLOO D BANK Dispense Status Transfused BLOOD BANK Blood Expiration Date BLOOD BANK Unit Number [id number] CH B LOOD BANK Product Blood Type 9500 BLOOD BANK Blood Type O- CH BLOOD BANK Crossmatch Compatible BLOOD BANK Other Kayli CHIU BLOOD BANK PRODUCT ORDER VIKAS Final Result Performing Organization Address City/[facility]/ZIP Co de Phone Number BLOOD BANK [address] [place] [address], * Morphology (11/20/2024 1:49 PM EDT) Acanthocytes Present 11/20/2024 5:05 PM EDT [facility] Echinocytes Present 11/20/2024 5:05 PM EDT [facility] RBC Morphology Slide Reviewed 2024 5:05 PM EDT [facility] Platelet Estimate Platelet smear estimate consistent with automated count 11/20/2024 5:05 PM EDT [facility] Blood Venous blood specimen / Unknown Venipuncture / Unknown 11/20/2024 1:49 PM EDT 11/20/2024 1:51 PM EDT us Virgen Vargas MD LAB BLOOD ORDERABLES Final Re sult Performing Organization Address City/[facility]/ZIP Co de Phone Number [facility] [address] [place] [address] * (ABNORMAL) Manual Differential (11/20/2024 1:49 PM EDT) Blasts % 0 % 11/20/2024 5:04 PM EDT [facility] Promyelocytes % 0 % 5:04 PM EDT [facility] Myelocytes % 0 % 11/20/2024 5:04 PM EDT [facility] Metamyelocytes % 0 % 11/21/19 5:04 PM EDT [facility] Neutrophils % 15 % 11/20/2024 5:04 PM EDT [facility] Lymphocytes % 79 % 11/20/2024 5:04 PM EDT [facility] Reactive Lymphocytes % 2 % 11/20/2024 5:04 PM EDT [facility] Monocytes % 4 % 11/20/2024 5:04 PM EDT [facility] Eosinophils % 0 % 11/20/2024 5:04 PM EDT [facility] Basophils % 0 % 11/20/2024 5:04 PM EDT [facility] Blasts Absolute 0.00 10*3/UL 5:04 PM EDT [facility] Promyelocytes Absolute 0.00 10*3/uL 11/20/2024 5:04 PM EDT [facility] Myelocytes Absolute 0.00 10*3/uL 11/20/2024 5:04 PM EDT [facility] Metamyelocytes Absolute 0.00 10*3/uL 11/20/2024 5:04 PM EDT [facility] Neutrophils Absolute 0.12(LL) 1.60 - 6.10 10*3/uL 11/20/2024 5:04 PM EDT [facility] Lymphocytes Absolute 0.66(L) 1.20 - 3.90 10*3/uL 11/20/2024 5:04 PM EDT [facility] Reactive Lymphocytes Absolute 0.02 10*3/uL 11/20/2024 5:04 PM EDT [facility] Monocytes Absolute 0.03(L) 0.30 - 0.90 10*3/uL 11/20/2024 5:04 PM EDT [facility] Eosinophils Absolute 0.00 0.00 - 0.50 10*3/uL 11/20/2024 5:04 PM EDT [facility] Basophils Absolute 0.00 0.00 - 0.10 10*3/uL 11/20/2024 5:04 PM EDT [facility] Blood Venous blood specimen / Unknown Venipuncture / Unknown 11/20/2024 1:49 PM EDT 11/20/2024 1:51 PM EDT us Virgen Vargas MD LAB BLOOD ORDERABLES Final Re sult [facility] [address] [place] [address] * Peripheral blood smear, pathologist interpretation (11/20/2024 1:49 PM EDT) Clinical Diagnosis, Peripheral Smear AML LAB HEMATOLOGY METHOD 11/20/2024 4:27 PM EDT [facility] Interpretation , Peripheral Smear Pancytopenia with marked neutropenia and few reactive lymphocytes. A resident was involved in the service. I attest I examined the relevant preparations for the specimens and confirmed the diagnosis or interpretation. 11/20/2024 4:27 PM EDT [facility] Pathologist Signature, Peripheral Smear 11/20/2024 4:27 PM EDT [facility] Comment:Reviewed by: Martha Lopez MD LAB CP ASR DISCLAIMER Yes 11/20/2024 4:27 PM EDT [facility] Blood Venous blood specimen / Unknown Venipuncture / Unknown 11/20/2024 1:49 PM EDT 11/20/2024 1:51 PM EDT us Virgen Vargas MD LAB PATHOLOGY ORDERABLES Terri lara Result [facility] [address] [place] [address] * (ABNORMAL) Comprehensive Metabolic Panel, Plasma (11/20/2024 1:49 PM EDT) Glucose, Plasma 100(H) 74 - 99 mg/dL 11/20/2024 2:45 PM EDT [facility] BUN, Plasma 11 8 - 23 mg/dL 11/20/2024 2:45 PM EDT [facility] Creatinine, Plasma 1.01 0.70 - 1.20 mg/dL 11/20/2024 2:45 PM EDT [facility] BUN/Creatinine Ratio 11 11/20/2024 2:45 PM EDT [facility] Sodium, Plasma 135(L) 136 - 145 mmol/L 11/20/2024 2:45 PM EDT [facility] Potassium, Plasma 4.1 3.6 - 4.9 mmol/L 11/20/2024 2:45 PM EDT [facility] Chloride, Plasma 106 97 - 107 mmol/L 11/20/2024 2:45 PM EDT [facility] CO2, Plasma 21(L) 22 - 29 mmol/L 11/20/2024 2:45 PM EDT [facility] Anion Gap 8 6 - 16 mmol/L 11/20/2024 2:45 PM EDT [facility] Total Calcium, Plasma 9.1 8.9 - 10.2 mg/dL 11/20/2024 2:45 PM EDT [facility] Total Protein 6.7 6.3 - 7.9 g/dL 11/20/2024 2:45 PM EDT [facility] Albumin, Plasma 3.9 3.5 - 5.2 g/dL 11/20/2024 2:45 PM EDT [facility] AST, Plasma 26 10 - 50 U/L 11/20/2024 2:45 PM EDT [facility] ALT, Plasma 43 10 - 50 U/L 11/20/2024 2:45 PM EDT [facility] Alkaline Phosphatase, Plasma 71 40 - 115 U/L 11/20/2024 2:45 PM EDT [facility] Total Bilirubin, Plasma 0.7 0.2 - 1.1 mg/dL 11/20/2024 2:45 PM EDT [facility] eGFRcr 80.5 mL/min/1.7 3m*2 11/20/2024 2:45 PM EDT [facility] Comment:Reported eGFRcr in m L/min/1.73m2 is based the CKD-EPI 2020 equation that does not use a race coefficient. Blood Venous blood specimen / Unknown Venipuncture / Unknown 11/20/2024 1:49 PM EDT 11/20/2024 2:13 PM EDT us Virgen Vargas MD LAB BLOOD ORDERABLES Final Re sult [facility] [address] [place] [address] * (ABNORMAL) CBC and differential (11/20/2024 1:49 PM EDT) WBC Count 0.83(LL) 3.70 - 10.30 10*3/uL LAB HEMATOLOGY METHOD 11/20/2024 5:06 PM EDT [facility] RBC Count 2.13(L) 4.60 - 6.10 10*6/uL LAB HEMATOLOGY METHOD 11/20/2024 5:06 PM EDT [facility] HGB 7.5(L) 13.7 - 17.5 g/dL LAB HEMATOLOGY METHOD 11/20/2024 5:06 PM EDT [facility] HCT 20.4(L) 40.0 - 51.0 % LAB HEMATOLOGY METHOD 11/20/2024 5:06 PM EDT [facility] Platelet Count 10(LL) 155 - 369 10*3/uL LAB HEMATOLOGY METHOD 11/20/2024 5:06 PM EDT [facility] MCV 96 79 - 98 fL LAB HEMATOLOGY METHOD 11/20/2024 5:06 PM EDT [facility] MCH 35.2(H) 26.0 - 32.0 pg LAB HEMATOLOGY METHOD 11/20/2024 5:06 PM EDT [facility] MCHC 36.8(H) 30.7 - 35.5 g/dL LAB HEMATOLOGY METHOD 11/20/2024 5:06 PM EDT [facility] RDW 19.7(H) 11.5 - 14.5 % LAB HEMATOLOGY METHOD 11/20/2024 5:06 PM EDT [facility] MPV LAB HEMATOLOGY METHOD 11/20/2024 5:06 PM EDT [facility] Comment:Not Measured nRBC 2.4(H) <=0.0 per 100 WBCs LAB HEMATOLOGY METHOD 11/20/2024 5:06 PM EDT [facility] Blood Venous blood specimen / Unknown Venipuncture / Unknown 11/20/2024 1:49 PM EDT 11/20/2024 1:[address] [facility] - 11/20/2024 5:06 PM EDT [...] MD LAB BLOOD ORDERABLES Final Re sult [facility] [address] [place] [address] [facility] [address] [place] [address] documented in this encounter Visit Diagnoses Diagnosis [...] Waste Container. Chemotherapy: refer to [id number]., On Christina 11/20/24 at 1445, For 1 dose, In 50 mL NSIndications:Myelodysplasia (myelodysplastic syndrome) (CMS/HCC) New Bag 11/20/2024 2:38 PM EDT 150 mg 540 mL/hr ondansetron ODT (Zofran-ODT) disintegrating tablet 16 mg 16 mg, Oral, Once, 1 dose, On Christina 11/20/24 at 1415, RoutineIndications:Myelodyspla haim (myelodysplastic syndrome) (CMS/HCC) Given 11/20/2024 2:03 PM EDT 16 mg documented in this encounter Additional Health Concerns Assessment Noted Time PHQ-9 Depression Total Score: 0 09/11/19 9:15 AM EST A fall risk assessment has been complete d for the patient 11/20/2024 1:38 PM EDT A Body Mass Index follow-up plan has been documented for the patient 11/10/2024 1:06 PM EDT documented as of this encounter Care Teams Vacuum Closing Machine Operator Relationship Specialty Start Date End Date Zhao Harris MD [address] [facility] [place] [address] [address] PCP - General 12/03/20 documented as of this encounter
--- OUTSIDE RECORDS SUMMARY | 2024-11-20 14:06 | XMS_ITS | Encounter Summary ---
Author Organization [facility] Address [address] [place] [address] Care Team Providers Care Wooden Fence Erector Name Role Phone Zhao Harris MD Primary Care Provider [phone] Encounter Details Date Type Department Care Team (Latest Contact Info) Description 11/20/2024 2:06 PM EDT - 11/20/2024 11:59 PM EDT Hospital Encounter [facility] Infusion Clinic [address] [place] [phone] Myelodysplasia (myelodysplastic syndrome) (CMS/HCC) (Primary Dx) Discharge [...] drink first t manav in the morning (EYE-CHEMICAL LAB SUPERVISOR) to steady your nerves or to get rid of a hangover? 0 11/03/2024 CAGE Questionnaire Score 0 025 Sex and Gender Information Value Date Recorded Sex Assigned at Male 05/18/2023 9:35 AM EDT Legal Sex Male 7:29 PM EDT Gender Identity Male 05/18/2023 9:35 AM EDT Sexual Orientation Straight 05/18/2023 9: 35 AM EDT documented as of this encounter Medications at Time of Discharge acyclovir (Zovirax) 800 MG tabletIndications :Myelodysplasia (myelodysplastic syndrome) (CMS/HCC) Take 1 tablet (800 mg) by mouth in the morning and 1 tablet (800 mg) before bedtime. 60 tablet 3 10/14/2024 bisoprolol (Zebeta) 5 MG tabletIndications :Coronary artery disease involving [place] heart with angina pectoris, unspecified vessel or lesion type (CMS/HCC),Hyperte nsion, unspecified type Take 1 tablet (5 mg) by mouth daily. 90 tablet 3 09/11/2024 HYDROcodone-aceta minophen ([place]) 5-325 MG tablet Take 1 tablet by mouth every 6 hours as needed. 11/07/2024 levoFLOXacin (Levaquin) 500 MG tabletIndications :Myelodysplasia (myelodysplastic syndrome) (CMS/HCC) Take 1 tablet (500 mg) by mouth daily. 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 pectoris, unspecified vessel or [...] CC Hematology/BMT and Cellular Therapy Program [address] [place] [phone] 01/06/2025 9:00 AM EDT Procedure Visit [facility] Hematology/BMT and Cellular Therapy Program [address] [phone] Kierra Novak, CUTTER INSPECTOR 800 [facility] [address] [place] [phone] 01/13/2025 9:30 AM EDT Clinical Support [facility] Hematology/BMT and Cellular Therapy Program [address] [address] 01/13/2025 10:00 AM EDT Office Visit [facility] Hematology/BMT and Cellular Therapy Program [address] [phone] Isaura Wynn, CUTTER INSPECTOR 800 [facility] [address] [place] [phone] 01/13/2025 11:30 AM EDT Appointment [facility] Infusion 800 [place] [address] 01/14/2025 2:00 PM EDT Appointment [facility] Infusion [address] [place] [phone] 01/15/2025 2:00 PM EDT Appointment [facility] Infusion [address] [place] [address] 01/16/2025 2:00 PM EDT Appointment [facility] Infusion [address] [place] [phone] 01/17/2025 2:00 PM EDT Appointment [facility] [address] [place] [address] 01/18/2025 2:00 PM EDT Appointment [facility] Infusion [address] [place] [phone] 01/19/2025 2:00 PM EDT Appointment [facility] Infusion [address] [place] [address] 03/10/2025 11:20 AM EDT Office Visit Pav CC Head, Neck & Respiratory 800 [facility], [address]nd [place] [address] Elsa Razo, CUTTER INSPECTOR 800 [place] [address] documented as of this encounter Visit Diagnoses [...] documented as of this encounter Care Teams Wooden Fence Erector Relationship Specialty Start Date End Date Zhao Harris MD 1210 [facility] [address] [place] [address] PCP - General 12/03/20 documented as of this encounter
--- OUTSIDE RECORDS SUMMARY | 2024-11-21 13:30 | XMS_ITS | Encounter Summary ---
Author Organization [facility] Address [address] [place] [address] Care Team Providers Care Axle Polisher Name Role Phone Zhao Harris MD Primary Care Provider + [phone] Reason for Visit * Episode Based Medications (Routine) - Authorized Specialty Diagnoses / Procedures Referred By Justice mcgee Referred To Contact Diagnoses Myelodysplasia (myelodysplastic syndrome) (CMS/HCC) Procedures Azacitidine Daily x 7 / Venetoclax Every 28 Days Virgen Vargas MD [address] [address] Phone: tel: fax: Virgen Vargas MD [address] [address] Phone: tel: fax: Referral ID Status Reason Start Date Expiration Date V isits Requested Visits Authorized [id number] Authorized 10/20/2024 04/21/2026 1 91 Encounter Details Date Type Department Care Team (Latest Contact Info) Description 11/21/2024 1:30 PM EDT - 11/21/2024 11:59 PM EDT Hospital Encounter [facility] Infusion Clinic 1 [address] [place] [phone] Myelodysplasia (myelodysplastic syndrome) (CMS/HCC) (Primary Dx) Discharge [...] first t manav in the morning (EYE-HEALTH SERVICES RN) to steady your nerves or to get [...] 5 MG tabletIndications :Coronary artery 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 90 tablet 3 09/11/2024 HYDROcodone-aceta minophen ([place]) 5-325 MG tablet Take 1 tablet by mouth every 6 hours as needed. 11/07/2024 levoFLOXacin (Levaquin) 500 MG tabletIndications :Myelodysplasia (myelodysplastic syndrome) (CMS/HCC) Take 1 tablet (500 mg) by mouth daily. 30 tablet 3 10/14/2024 nitroglycerin (Nitrostat) 0.4 MG SL tabletIndications :Coronary artery disease involving [place] heart with angina pectoris, unspecified vessel or [...] 2.5 MG tabletIndications :Coronary artery disease involving [place] heart with angina pectoris, unspecified vessel or [...] Upcoming Encounters Date Type Department Care Team ([facility] st Contact Info) Description 01/06/2025 8:30 AM EDT Clinical Support [facility] Hematology/BMT and Cellular Therapy Program [address] [phone] 01/06/2025 9:00 AM EDT Procedure Visit [facility] Hematology/BMT and Cellular Therapy Program [address] [phone] Kierra Novak, PHP MYSQL WEB DEVELOPER 800 [facility] [address] [place] [phone] 01/13/2025 9:30 AM EDT Clinical Support [facility] Hematology/BMT and Cellular Therapy Program 750 [facility] [place] [address] 01/13/2025 10:00 AM EDT Office Visit [facility] CC Hematology/BMT and Cellular Therapy Program [address] [phone] Isaura Wynn, PHP MYSQL WEB DEVELOPER 800 [facility] [address] [place] [phone] 01/13/2025 11:30 AM EDT Appointment [facility] H Infusion [address] [place] [address] 01/14/2025 2:00 PM EDT Appointment [facility] H Infusion [address] [place] [address] 01/15/2025 2:00 PM EDT Appointment [facility] H Infusion [address] [place] [address] 01/16/2025 2:00 PM EDT Appointment [facility] H Infusion [address] [place] [address] 01/17/2025 2:00 PM EDT Appointment [facility] Infusion [address] [place] [address] 01/18/2025 2:00 PM EDT Appointment [facility] H Infusion [address] [place] [address] 01/19/2025 2:00 PM EDT Appointment [facility] H Infusion [address] [place] [address] 03/10/2025 11:20 AM EDT Office Visit Pav CC Head, Neck & Respiratory 800 [facility], 2nd [place] [address] Elsa Razo, PHP MYSQL WEB DEVELOPER [address] [place] [phone] documented as of this encounter Visit Diagnoses [...] Sun11/21/24 at 1445, RoutineIndications:Myelodyspla haim (myelodysplastic syndrome) ([facility]/HCC) Given 11/21/2024 2:32 PM EDT 16 mg [...] documented as of this encounter Care Teams Axle Polisher Relationship Specialty Start Date End Date Zhao Harris MD [address] [place] [address] PCP - General 12/03/20 documented as of this encounter
--- OUTSIDE RECORDS SUMMARY | 2024-11-22 13:59 | XMS_ITS | Encounter Summary ---
Author Organization [facility] Address [address] [place] [address] Care Team Providers Care Maxillofacial Prosthodontist Name Role Phone Zhao Harris MD Primary Care Provider + [phone] Reason for Visit * Episode Based Medications (Routine) - Authorized Specialty Diagnoses / Procedures Referred By Justice mcgee Referred To Contact Diagnoses Myelodysplasia (myelodysplastic syndrome) (CMS/HCC) Procedures Azacitidine Daily x 7 / Venetoclax Every 28 Days Virgen Vargas MD [address] [address] Phone: tel: fax: Virgen Vargas MD [address] [address] Phone: tel: fax: Referral ID Status Reason Start Date Expiration Date V isits Requested Visits Authorized [id number] Authorized 10/20/2024 04/21/2026 1 91 Encounter Details Date Type Department Care Team (Latest Contact Info) Description 11/22/2024 1:59 PM EDT - 11/22/2024 11:59 PM EDT Hospital Encounter [facility] Infusion Clinic 1 [address] [place] [phone] Myelodysplasia (myelodysplastic syndrome) (CMS/HCC) (Primary Dx); Thrombocytopenia [...] drink first t manav in the morning (EYE-AGRICULTURAL LOAN OFFICER) to steady your nerves or to get [...] 5 MG tabletIndications :Coronary artery disease involving [place] heart with angina pectoris, unspecified vessel or lesion type (CMS/HCC),Hyperte nsion, unspecified type Take 1 tablet (5 mg) by mouth daily. 90 tablet 3 09/11/2024 HYDROcodone-aceta minophen ([place]) 5-325 MG tablet Take 1 tablet by mouth every 6 hours as needed. 11/07/2024 levoFLOXacin (Levaquin) 500 MG tabletIndications :Myelodysplasia (myelodysplastic syndrome) (CMS/HCC) Take 1 tablet (500 mg) by mouth daily. 30 tablet 3 10/14/2024 nitroglycerin (Nitrostat) 0.4 MG SL tabletIndications :Coronary artery disease involving [place] heart with angina pectoris, unspecified vessel or [...] 2.5 MG tabletIndications :Coronary artery disease involving [place] heart with angina pectoris, unspecified vessel or [...] Hematology/BMT and Cellular Therapy Program [address] [place] [address] 01/06/2025 9:00 AM EDT Procedure Visit PAV CC Hematology/BMT and Cellular Therapy Program [address] [phone] Kierra Novak, NERVE SPECIALIST 800 [facility] [address] [place] [phone] 01/13/2025 9:30 AM EDT Clinical Support PAV CC Hematology/BMT and Cellular Therapy Program [address] [phone] 01/13/2025 10:00 AM EDT Office Visit PAV CC Hematology/BMT and Cellular Therapy Program [address] [phone] Isaura Wynn, NERVE SPECIALIST 800 [facility] [address] [place] [phone] 01/13/2025 11:30 AM EDT Appointment PAV H Infusion [address] [place] [phone] 01/14/2025 2:00 PM EDT Appointment PAV H Infusion [address] [place] [address] 01/15/2025 2:00 PM EDT Appointment PAV H Infusion [address] [place] [address] 01/16/2025 2:00 PM EDT Appointment PAV H Infusion [address] [place] [address] 01/17/2025 2:00 PM EDT Appointment PAV H Infusion [address] [place] [address] 01/18/2025 2:00 PM EDT Appointment PAV H Infusion [address] [place] [address] 01/19/2025 2:00 PM EDT Appointment PAV H Infusion [address] [place] [phone] 03/10/2025 11:20 AM EDT Office Visit Pav CC Head, Neck & Respiratory 800 [facility], 2nd [place] [address] Elsa Razo, NERVE SPECIALIST 800 [place] [address] documented as of this encounter Procedures Procedure [...] 4:24 PM EDT 11/22/2024 5:04 PM EDT Virgen Vargas MD LAB BLOOD ORDERABLES Final Re sult [facility] [address] [place] [address] * Exception to Standard Practice, Pathologist Interpretation [...] ORDERAB LES Final Result Performing Organization Address City/[facility]/ZIP Co de Phone Number BLOOD BANK [address] * Prepare Leukocyte Reduced Platelets: 1 Units (11/22/2024 3:18 PM EDT) Product Code [id number] BLOO D BANK Dispense Status Transfused BLOOD BANK Blood Expiration Date [id number] BLOOD BANK Unit Number [id number] B LOOD BANK Product Blood Type 5100 BLOOD BANK Blood Type O+ BLOOD BANK Blood Venous blood specimen / Unknown us Kayli CHIU BLOOD BANK PRODUCT ORDER VIKAS Final Result Performing Organization Address City/[facility]/ZIP Co de Phone Number BLOOD BANK [address] documented in this encounter Visit Diagnoses [...] documented as of this encounter Care Teams Maxillofacial Prosthodontist Relationship Specialty Start Date End Date Zhao Harris MD [address] [place] [address] PCP - General 12/03/20 documented as of this encounter
--- OUTSIDE RECORDS SUMMARY | 2024-11-23 13:43 | XMS_ITS | Encounter Summary ---
Author Organization [facility] Address [address] [place] [address] Care Team Providers Care Director Imaging Name Role Phone Zhao Harris MD Primary Care Provider + [phone] Reason for Visit * Episode Based Medications (Routine) - Authorized Specialty Diagnoses / Procedures Referred By Justice mcgee Referred To Contact Diagnoses Myelodysplasia (myelodysplastic syndrome) (CMS/HCC) Procedures Azacitidine Daily x 7 / Venetoclax Every 28 Days Virgen Vargas MD [address] [address] Phone: tel: fax: Virgen Vargas MD [address] [address] Phone: tel: fax: Referral ID Status Reason Start Date Expiration Date V isits Requested Visits Authorized [id number] Authorized 10/20/2024 04/21/2026 1 91 Encounter Details Date Type Department Care Team (Latest Contact Info) Description 11/23/2024 1:43 PM EDT - 11/23/2024 11:59 PM EDT Hospital Encounter [facility] [address] [place] [phone] Myelodysplasia (myelodysplastic syndrome) (CMS/HCC) (Primary Dx) Discharge [...] drink first t manav in the morning ([employer]) to steady your nerves or to [...] 5 MG tabletIndications :Coronary artery disease involving shinnecock heart with angina pectoris, unspecified vessel or lesion type (CMS/HCC),Hyperte nsion, unspecified type Take 1 tablet (5 mg) by mouth daily. 90 tablet 3 09/11/2024 HYDROcodone-aceta minophen ([place]) 5-325 MG tablet Take 1 tablet by mouth every 6 hours as needed. 11/07/2024 levoFLOXacin (Levaquin) 500 MG tabletIndications :Myelodysplasia (myelodysplastic syndrome) (CMS/HCC) Take 1 tablet (500 mg) by mouth daily. 30 tablet 3 10/14/2024 nitroglycerin (Nitrostat) 0.4 MG SL tabletIndications :Coronary artery disease involving shinnecock heart with angina pectoris, unspecified vessel or [...] 2.5 MG tabletIndications :Coronary artery disease involving shinnecock heart with angina pectoris, unspecified vessel or [...] Upcoming Encounters Date Type Department Care Team ([facility] st Contact Info) Description 01/06/2025 8:30 AM EDT Clinical Support [facility] Hematology/BMT and Cellular Therapy Program [address] [phone] 01/06/2025 9:00 AM EDT Procedure Visit [facility] Hematology/BMT [facility] Cellular Therapy Program [address] [phone] Kierra Novak, CATTLE EXAMINER 800 [facility] [address] [place] [phone] 01/13/2025 9:30 AM EDT Clinical Support [facility] H[facility]ology/BMT [facility] Cellular Therapy Program 750 [facility] [place] [address] 01/13/2025 10:00 AM EDT Office Visit [facility] H[facility]ology/BMT [facility] Cellular Therapy Program 750 [facility], [address] [place] [phone] Isaura Wynn, CATTLE EXAMINER 800 [facility] [address] [place] [phone] 01/13/2025 11:30 AM EDT Appointment [facility] [address] [place] [phone] 01/14/2025 2:00 PM EDT Appointment [facility] [address] [place] [address] 01/15/2025 2:00 PM EDT Appointment [facility] [address] [place] [address] 01/16/2025 2:00 PM EDT Appointment [facility] [address] [place] [address] 01/17/2025 2:00 PM EDT Appointment [facility] [address] [place] [address] 01/18/2025 2:00 PM EDT Appointment [facility] [address] [place] [address] 01/19/2025 2:00 PM EDT Appointment [facility] [address] [place] [address] 03/10/2025 11:20 AM EDT Office Visit [facility] 800 [facility], [address] [place] [phone] Elsa Razo, CATTLE EXAMINER [address] [place] [phone] documented as of this encounter Visit Diagnoses [...] documented as of this encounter Care Teams Director Imaging Relationship Specialty Start Date End Date Zhao Harris MD [address] [place] [address] PCP - General 12/03/20 documented as of this encounter
--- OUTSIDE RECORDS SUMMARY | 2024-11-24 13:59 | XMS_ITS | Encounter Summary ---
Author Organization [facility] Address [address] [place] [address] Care Team Providers Care Institution Librarian Name Role Phone Zhao Harris MD Primary Care Provider + [phone] Reason for Visit * Episode Based Medications (Routine) - Authorized Specialty Diagnoses / Procedures Referred By Justice mcgee Referred To Contact Diagnoses Myelodysplasia (myelodysplastic syndrome) (CMS/HCC) Procedures Azacitidine Daily x 7 / Venetoclax Every 28 Days Virgen Vargas MD [address] [address] Phone: tel: fax: Virgen Vargas MD [address] [address] Phone: tel: fax: Referral ID Status Reason Start Date Expiration Date V isits Requested Visits Authorized [id number] Authorized 10/20/2024 04/21/2026 1 91 Encounter Details Date Type Department Care Team (Latest Contact Info) Description 11/24/2024 1:59 PM EDT - 11/24/2024 2:29 PM EDT Hospital Encounter [facility] Infusion Clinic [address] [place] [phone] Myelodysplasia (myelodysplastic syndrome) (CMS/HCC) (Primary Dx); Thrombocytopenia [...] drink first t manav in the morning (EYE-MACHINE GUNNER) to steady your nerves or to get [...] 5 MG tabletIndications :Coronary artery disease involving [place] heart with angina pectoris, unspecified vessel or lesion type (CMS/HCC),Hyperte nsion, unspecified type Take 1 tablet (5 mg) by mouth daily. 90 tablet 3 09/11/2024 HYDROcodone-aceta minophen (Recluse) 5-325 MG tablet Take 1 tablet by mouth every 6 hours as needed. 11/07/2024 levoFLOXacin (Levaquin) 500 MG tabletIndications :Myelodysplasia (myelodysplastic syndrome) (CMS/HCC) Take 1 tablet (500 mg) by mouth daily. 30 tablet 3 10/14/2024 nitroglycerin (Nitrostat) 0.4 MG SL tabletIndications :Coronary artery disease involving [place] heart with angina pectoris, unspecified vessel or [...] 2.5 MG tabletIndications :Coronary artery disease involving [place] heart with angina pectoris, unspecified vessel or [...] 09/29/2024 5 documented as of this encounter Miscellaneous [...] a preserved mata-T cell profile with a CD4:HJ2fitiq of 2.7:1. Polyclonal B-cells (3%) and a [...] counts (WBC 2.3 k/??L, hemoglobin 11.6 g/dL, [id number] k/??L) prompted a bone marrow biopsy on [...] ARAM Higuera HEMATOLOGY/BMT AND CELLULAR THERAPY PROGRAM [address] [place] [phone] SERVICE PAGER [phone]/[employer] CHAT 23 minutes was spent on this [...] daily., Disp: 90 tablet, Rfl: 3 HYDROcodone-acetaminophen (Recluse) 5-325 MG tablet, Take 1 tablet by [...] Description 01/06/2025 8:30 AM EDT Clinical Support [facility] Hematology/BMT and Cellular Therapy Program [address] [address] 01/06/2025 9:00 AM EDT Procedure Visit [facility] Hematology/BMT and Cellular Therapy Program [address] [phone] Kierra Novak, BRIDGE INSPECTOR 800 [facility] [address] [place] [phone] 01/13/2025 9:30 AM EDT Clinical Support [facility] Hematology/BMT and Cellular Therapy Program 750 [facility], [address] [place] [phone] 01/13/2025 10:00 AM EDT Office Visit [facility] Hematology/BMT and Cellular Therapy Program 750 [facility], [address] [place] [phone] Isaura Wynn, BRIDGE INSPECTOR 800 [facility] [address] [place] [phone] 01/13/2025 11:30 AM EDT Appointment [facility] [address] [place] [address] 01/14/2025 2:00 PM EDT Appointment [facility] [address] [place] [address] 01/15/2025 2:00 PM EDT Appointment [facility] [address] [place] [address] 01/16/2025 2:00 PM EDT Appointment [facility] [address] [place] [address] 01/17/2025 2:00 PM EDT Appointment [facility] [address] [place] [address] 01/18/2025 2:00 PM EDT Appointment [facility] [address] [place] [address] 01/19/2025 2:00 PM EDT Appointment [facility] [address] [place] [address] 03/10/2025 11:20 AM EDT Office Visit [facility] 800 [facility], [address]nd [place] [address] Elsa Razo, BRIDGE INSPECTOR [address] [place] [address] documented as of this encounter Procedures Procedure [...] 1 Units, Irradiated (11/24/2024 6:27 PM EDT) us Kayli CHIU BLOOD TRANSFUSION ORDERA BLES Final Result * (ABNORMAL) Platelet count (11/24/2024 4:19 PM EDT) Platelet Count 43(L) 155 - 369 10*3/uL LAB HEMATOLOGY METHOD 11/24/2024 4:23 PM EDT [facility] Blood Venous blood specimen / Unknown Venipuncture / Unknown 11/24/2024 4:19 PM EDT 11/24/2024 4:20 PM EDT Result [facility] Virgen Vargas MD LAB BLOOD ORDERABLES Final Re sult [facility] [address] [place] [address] * Transfuse platelets (11/24/2024 4:11 PM EDT) [...] LES Final Result Performing Organization Address [facility] Co de Phone Number BLOOD BANK [address] [place] [address], [place] * Prepare Leukocyte Reduced Platelets: 1 Units (11/24/2024 2:36 PM EDT) Product Code A9314V20 CH BLOO D BANK Dispense Status Transfused BLOOD BANK Blood Expiration Date [id number] BLOOD BANK Unit Number [id number] CH B LOOD BANK Product Blood Type 6200 BLOOD BANK Blood Type A+ CH BLOOD BANK Blood Venous blood specimen / Unknown Kayli Ospina PA BLOOD BANK PRODUCT ORDER VIKAS Final Result Performing Organization Address [facility] de Phone Number BLOOD BANK [address] [place] [address], [place] * Prepare Leukocyte Reduced RBC: 1 Units, Irradiated (11/24/2024 2:36 PM EDT) Product Code [id number] CH BLOO D BANK Dispense Status Transfused BLOOD BANK Blood Expiration Date [id number] BLOOD BANK Unit Number [id number] CH B LOOD BANK Product Blood Type 9500 BLOOD BANK Blood Type O- CH BLOOD BANK Crossmatch Compatible BLOOD BANK Other Kayli Echeverriale PA BLOOD BANK PRODUCT ORDER VIKAS Final Result Performing Organization Address [facility] Co de Phone Number BLOOD BANK [address] [place] [address], [place] * Type and Screen (11/24/2024 2:07 [...] ORDERABLE S Final Result BLOOD BANK [address] [place] [address], * Comprehensive Metabolic Panel, Plasma (11/24/2024 2:07 PM EDT) Glucose, Plasma 97 74 - 99 mg/dL 11/24/2024 3:44 PM EDT [facility] BUN, Plasma 13 8 - 23 mg/dL 11/24/2024 3:44 PM EDT [facility] Creatinine, Plasma 0.97 0.70 - 1.20 mg/dL 11/24/2024 3:44 PM EDT [facility] BUN/Creatinine Ratio 13 11/24/2024 3:44 PM EDT [facility] Sodium, Plasma 138 136 - 145 mmol/L 11/24/2024 3:44 PM EDT [facility] Potassium, Plasma 3.7 3.6 - 4.9 mmol/L 11/24/2024 3:44 PM EDT [facility] Chloride, Plasma 107 97 - 107 mmol/L 11/24/2024 3:44 PM EDT [facility] CO2, Plasma 22 22 - 29 mmol/L 11/24/2024 3:44 PM EDT [facility] Anion Gap 9 6 - 16 mmol/L 11/24/2024 3:44 PM EDT [facility] Total Calcium, Plasma 9.5 8.9 - 10.2 mg/dL 11/24/2024 3:44 PM EDT [facility] Total Protein 6.7 6.3 - 7.9 g/dL 11/24/2024 3:44 PM EDT [facility] Albumin, Plasma 3.8 3.5 - 5.2 g/dL 11/24/2024 3:44 PM EDT [facility] AST, Plasma 18 10 - 50 U/L 11/24/2024 3:44 PM EDT [facility] ALT, Plasma 20 10 - 50 U/L 11/24/2024 3:44 PM EDT [facility] Alkaline Phosphatase, Plasma 71 40 - 115 U/L 11/24/2024 3:44 PM EDT [facility] Total Bilirubin, Plasma 0.7 0.2 - 1.1 mg/dL 11/24/2024 3:44 PM EDT [facility] eGFRcr 84.5 mL/min/1.7 3m*2 11/24/2024 3:44 PM EDT [facility] Comment:Reported eGFRcr in m L/min/1.73m2 is based the CKD-EPI 2020 equation that does not use a race coefficient. Blood Venous blood specimen / Unknown Venipuncture / Unknown 11/24/2024 2:07 PM EDT 11/24/2024 2:44 PM EDT Virgen Vargas MD LAB BLOOD ORDERABLES Final Re sult [facility] [address] [place] [address] * (ABNORMAL) CBC and Differential (11/24/2024 2:07 PM EDT) WBC Count 0.76(LL) 3.70 - 10.30 10*3/uL LAB HEMATOLOGY METHOD 11/24/2024 2:44 PM EDT [facility] RBC Count 2.37(L) 4.60 - 6.10 10*6/uL LAB HEMATOLOGY METHOD 11/24/2024 2:44 PM EDT [facility] HGB 8.0(L) 13.7 - 17.5 g/dL LAB HEMATOLOGY METHOD 11/24/2024 2:44 PM EDT [facility] HCT 22.3(L) 40.0 - 51.0 % LAB HEMATOLOGY METHOD 11/24/2024 2:44 PM EDT [facility] Platelet Count 12(LL) 155 - 369 10*3/uL LAB HEMATOLOGY METHOD 11/24/2024 2:44 PM EDT [facility] MCV 94 79 - 98 fL LAB HEMATOLOGY METHOD 11/24/2024 2:44 PM EDT [facility] MCH 33.8(H) 26.0 - 32.0 pg LAB HEMATOLOGY METHOD 11/24/2024 2:44 PM EDT [facility] MCHC 35.9(H) 30.7 - 35.5 g/dL LAB HEMATOLOGY METHOD 11/24/2024 2:44 PM EDT [facility] RDW 18.8(H) 11.5 - 14.5 % LAB HEMATOLOGY METHOD 11/24/2024 2:44 PM EDT [facility] MPV LAB HEMATOLOGY METHOD 11/24/2024 2:44 PM EDT [facility] Comment:Not Measured nRBC 0.0 <=0.0 per 100 WBCs LAB HEMATOLOGY METHOD 11/24/2024 2:44 PM EDT [facility] Differential Type Automated LAB HEMATOLOGY METHOD 11/24/2024 2:44 PM EDT [facility] Neutrophils % 16 % LAB HEMATOLOGY METHOD 11/24/2024 2:44 PM EDT [facility] Lymphocytes % 79 % LAB HEMATOLOGY METHOD 11/24/2024 2:44 PM EDT [facility] Monocytes % 4 % LAB HEMATOLOGY METHOD 11/24/2024 2:44 PM EDT [facility] Eosinophils % 1 % LAB HEMATOLOGY METHOD 11/24/2024 2:44 PM EDT [facility] Basophils % 0 % LAB HEMATOLOGY METHOD 11/24/2024 2:44 PM EDT [facility] Immature Granulocytes % 0 % LAB HEMATOLOGY METHOD 11/24/2024 2:44 PM EDT [facility] Neutrophils Absolute 0.12(LL) 1.60 - 6.10 10*3/uL LAB HEMATOLOGY METHOD 11/24/2024 2:44 PM EDT [facility] Lymphocytes Absolute 0.60(L) 1.20 - 3.90 10*3/uL LAB HEMATOLOGY METHOD 11/24/2024 2:44 PM EDT [facility] Monocytes Absolute 0.03(L) 0.30 - 0.90 10*3/uL LAB HEMATOLOGY METHOD 11/24/2024 2:44 PM EDT [facility] Eosinophils Absolute 0.01 0.00 - 0.50 10*3/uL LAB HEMATOLOGY METHOD 11/24/2024 2:44 PM EDT [facility] Basophils Absolute 0.00 0.00 - 0.10 10*3/uL LAB HEMATOLOGY METHOD 11/24/2024 2:44 PM EDT [facility] Immature Granulocytes Absolute 0.00 0.00 - 0.06 10*3/uL LAB HEMATOLOGY METHOD 11/24/2024 2:44 PM EDT [facility] Blood Venous blood specimen / Unknown Venipuncture / Unknown 11/24/2024 2:07 PM EDT 11/24/2024 2:13 PM EDT Narrative [facility] - 11/24/2024 2:44 PM EDT Therapeutic decision making should be based on absolute values, rather than percentages. us Virgen Vargas MD LAB BLOOD ORDERABLES Final Re sult [facility] [address] [place] [address] documented in this encounter Visit Diagnoses Diagnosis [...] documented as of this encounter Care Teams Institution Librarian Relationship Specialty Start Date End Date Zhao Harris MD [address] [place] [address] PCP - General 12/03/20 documented as of this encounter
--- OUTSIDE RECORDS SUMMARY | 2024-11-24 14:30 | XMS_ITS | Encounter Summary ---
Author Organization [facility] Address [address] [place] [address] Care Team Providers Care Elementary Vocal Music Teacher Name Role Phone Zhao Harris MD Primary Care Provider [phone] Encounter Details Date Type Department Care Team (Latest Contact Info) Description 11/24/2024 2:30 PM EDT - 11/24/2024 11:59 PM EDT Hospital Encounter [facility] Infusion Clinic [address] [place] [phone] Discharge Disposition: Home or Self Care Social [...] drink first t manav in the morning (EYE-RESTAURANT HOSTESS) to steady your nerves or to get [...] 5 MG tabletIndications :Coronary artery disease involving upper [place] heart with angina pectoris, unspecified vessel or lesion type (CMS/HCC),Hyperte nsion, unspecified type Take 1 tablet (5 mg) by mouth daily. 90 tablet 3 09/11/2024 HYDROcodone-aceta minophen (Ada) 5-325 MG tablet Take 1 tablet by mouth every 6 hours as needed. 11/07/2024 levoFLOXacin (Levaquin) 500 MG tabletIndications :Myelodysplasia (myelodysplastic syndrome) (CMS/HCC) Take 1 tablet (500 mg) by mouth daily. 30 tablet 3 10/14/2024 nitroglycerin (Nitrostat) 0.4 MG SL tabletIndications :Coronary artery disease involving upper [place] heart with angina pectoris, unspecified vessel or [...] 2.5 MG tabletIndications :Coronary artery disease involving upper [place] heart with angina pectoris, unspecified vessel or [...] CC Hematology/BMT and Cellular Therapy Program [address] [phone] 01/06/2025 9:00 AM EDT Procedure Visit [facility] Hematology/BMT and Cellular Therapy Program [address] [phone] Kierra Novak, BRICK SETTER 800 [facility] [address] [place] [phone] 01/13/2025 9:30 AM EDT Clinical Support [facility]AV CC Hematology/BMT and Cellular Therapy Program [address] [phone] 01/13/2025 10:00 AM EDT Office Visit [facility] CC Hematology/BMT and Cellular Therapy Program [address] [phone] Isaura Wynn, BRICK SETTER 800 [facility] [address] [place] [phone] 01/13/2025 11:30 AM EDT Appointment P[facility] H Infusion [address] [place] [phone] 01/14/2025 2:00 PM EDT Appointment [facility] H Infusion [address] [place] [address] 01/15/2025 2:00 PM EDT Appointment [facility] H Infusion [address] [place] [address] 01/16/2025 2:00 PM EDT Appointment [facility] H Infusion [address] [place] [address] 01/17/2025 2:00 PM EDT Appointment [facility] H Infusion [address] [place] [phone] 01/18/2025 2:00 PM EDT Appointment [facility] H Infusion [address] [place] [address] 01/19/2025 2:00 PM EDT Appointment [facility] H Infusion [address] [place] [address] 03/10/2025 11:20 AM EDT Office Visit Pav CC Head, Neck & Respiratory 800 [facility], 2nd [place] [phone] Elsa Razo, BRICK SETTER 800 [place] [address] documented as of this encounter Visit Diagnoses [...] documented as of this encounter Care Teams Elementary Vocal Music Teacher Relationship Specialty Start Date End Date Zhao Harris MD [address] [place], [place] [phone] PCP - General 12/03/20 documented as of this encounter
--- OUTSIDE RECORDS SUMMARY | 2024-11-26 10:00 | XMS_ITS | Encounter Summary ---
Author Organization [facility] Address [address] 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 [id number] Vascular Access Port Implantation Port implantation is [...] All prescription medicines, especially blood thinners ?? Exej-tox-lxetkzk medicines such as aspirin or ibuprofen ?? [...] dislodged Last Reviewed Date: 2024 00:00:00 ?? 2520-4739 [employer]. All rights reserved. This information is not intended as a substitute for professional medical care. Always follow your healthcare professional's instructions. documented in this encounter Plan of Treatment Upcoming Encounters Date Type Department Care Team ([facility] Contact Info) Description 01/06/2025 8:30 AM EDT Clinical Support [facility] H[facility]ology/BMT and Cellular Therapy Program [address] [place] [phone] 01/06/2025 9:00 AM EDT Procedure Visit [facility]ology/BMT and Cellular Therapy Program [address] [phone] Kierra Novak, ESTRELLA 800 [facility] [address] [place] [phone] 01/13/2025 9:30 AM EDT Clinical Support [facility] Hematology/BMT and Cellular Therapy Program [address] [place] [phone] 01/13/2025 10:00 AM EDT Office Visit [facility] Hematology/BMT and Cellular Therapy Program [address] [place] [phone] Isaura Wynn, ESTRELLA 800 [facility] [address] [place] [phone] 01/13/2025 11:30 AM EDT Appointment [facility] [address] [place] [address] 01/14/2025 2:00 PM EDT Appointment [facility] [address] [place] [address] 01/15/2025 2:00 PM EDT Appointment [facility] [address] [place] [address] 01/16/2025 2:00 PM EDT Appointment [facility] [address] [place] [address] 01/17/2025 2:00 PM EDT Appointment [facility] [address] [place] [address] 01/18/2025 2:00 PM EDT Appointment [facility] [address] [place] [address] 01/19/2025 2:00 PM EDT Appointment [facility] [address] [place] [address] 03/10/2025 11:20 AM EDT Office Visit [facility] Head, Neck & Respiratory 800 [facility], [address] [place] [address] Elsa Razo, PILOT INSTRUCTOR [address] [place] [address] documented as of this encounter Results * Protime-INR (11/26/2024 10:51 AM EDT) [facility] Prothrombin Time 13.8 12.0 - 14.3 sec LAB COAGULATION METHOD 11/26/2024 11:52 AM EDT [facility] INR 1.1 0.9 - 1.1 LAB COAGULATION METHOD 11/26/2024 11:52 AM EDT [facility] Blood Venous blood specimen / Unknown Venipuncture / Unknown 11/26/2024 10:51 AM EDT 11/26/2024 10:51 AM EDT Narrative [facility] - 11/26/2024 11:52 AM EDT OPTIMAL INR RANGES FOR PATIENT ON ORAL ANTICOAGULANT THERAPY Prevention of venous thromboembolism INR 2.0 to 3.0 In patients with heart disease: Atrial fibrillation INR 2.0 to 3.0 Valvular heart disease INR 2.0 to 3.0 Tissue heart valves INR 2.0 to 3.0 Mechanical prosthetic valves INR 2.5 to 3.5 Prevention of recurrent [place] INR 2.5 to 3.5 Latoya Stephanie Enrique PILOT INSTRUCTOR LAB BLOOD ORDERABLES Final R esult [facility] [address] [place] [address] documented in this encounter Visit Diagnoses Diagnosis [...] documented as of this encounter Care Teams Pack Worker Relationship Specialty Start Date End Date Zhao Harris MD [address] [place] [address] PCP - General 12/03/20 documented as of this encounter
--- OUTSIDE RECORDS SUMMARY | 2024-12-01 08:41 | XMS_ITS | Encounter Summary ---
Author Organization [facility] Address [address] [place] [place] [address] Care Team Providers Care Finishing Machine Operator Name Role Phone Zhao Harris MD Primary Care Provider [phone] Reason for Referral * Consultation (Routine) - Closed Specialty Diagnoses / Procedures Referred By Contact Referred To Contact Interventional Radiology Diagnoses Myelodysplasia (myelodysplastic syndrome) (CMS/HCC) Mckinley Lee MD [address] [place] [address] Phone: tel:[phone] fax:[phone] [facility] Vascular Interventional Radiology [address] [place] [address] Phone: tel: Referral ID Status Reason Start Date Expiration Date V isits Requested Visits Authorized [id number] Closed Specialty Services Required 12/01/2024 06/02/2026 1 1 * Imaging (Routine) - Closed Specialty Diagnoses / Procedures Referred By Justice mcgee Referred To Contact Radiology Diagnoses Myelodysplasia (myelodysplastic syndrome) (CMS/HCC) Procedures IR Port Placement 5+ Years Consult to Interventional Radiology Isaura Wynn APRN [address] [facility] [address] [place] [address] Phone: tel: fax: Referral ID Status Reason Start Date Expiration Date Visits Re quested Visits Authorized [id number] Closed 11/18/2024 05/20/2026 1 1 Reason for Visit * Imaging (Routine) - Closed Specialty Diagnoses / Procedures Referred By Justice mcgee Referred To Contact Radiology Diagnoses Myelodysplasia (myelodysplastic syndrome) (CMS/HCC) Procedures IR Port Placement 5+ Years Consult to Interventional Radiology Isaura Wynn APRN [address] [facility] [address] [place] [address] Phone: tel: fax: Referral ID Status Reason Start Date Expiration Date Visits Re quested Visits Authorized [id number] Closed 11/18/2024 05/20/2026 1 1 Encounter Details Date Type Department Care Team (Latest Contact Info) Description 12/01/2024 8:41 AM EDT - 12/01/2024 11:59 PM EDT Hospital Encounter [facility] Interventional Radiology [address] [place] [address] Gela Singer Thrombocytopenia (CMS/HCC) (Primary Dx); Myelodysplasia [...] drink first t manav in the morning (EYE-MOVIE THEATER MANAGER) to steady your nerves or to [...] call: Vascular & Interventional Radiology Clinic at [phone] Sunday - Sunday 8:00 AM to 4:30 PM After hours, weekends, and holidays please call [phone] and ask for the Interventional Radiology provider/Resident on-call For Emergencies please go to the nearest Emergency Room or dial 911. Intervention Radiology Appointments: If you need to reschedule a procedure, please call our Schedulers at [phone], option 4. If you need to schedule or reschedule a clinic appointment, please call [phone]. [facility] Clinic Vascular and Interventional Radiology Clinic [facility] [address] [place] [address] documented in this encounter Medications at Time of Discharge acyclovir (Zovirax) 800 MG tabletIndications :Myelodysplasia (myelodysplastic syndrome) (CMS/HCC) Take 1 tablet (800 mg) by mouth in the morning and 1 tablet (800 mg) before bedtime. 60 tablet 3 10/14/2024 bisoprolol (Zebeta) 5 MG tabletIndications :Coronary artery disease involving pala heart with angina pectoris, unspecified vessel or lesion type (CMS/HCC),Hyperte nsion, unspecified type Take 1 tablet (5 mg) by mouth daily. 90 tablet 3 09/11/2024 HYDROcodone-aceta minophen (Strandquist) 5-325 MG tablet Take 1 tablet by mouth every 6 hours as needed. 11/07/2024 hydrocortisone 2.5 % cream Apply 1 Application topically as needed for rash. 20 g 12/09/2024 levoFLOXacin (Levaquin) 500 MG tabletIndications :Myelodysplasia (myelodysplastic syndrome) (CMS/HCC) Take 1 tablet (500 mg) by mouth daily. 30 tablet 3 10/14/2024 nitroglycerin (Nitrostat) 0.4 MG SL tabletIndications :Coronary artery disease involving pala heart with angina pectoris, unspecified vessel or [...] daily. Days 1-14 14 tablet 11/18/2024 5 amLODIPine (Norvasc) 2.5 MG tabletIndications :Coronary artery disease involving pala heart with angina pectoris, unspecified vessel or [...] be flushed every 4 weeks. Call the [facility] Hematology Program Clinic if this is not set up. ?? What is used to flush it? It will be flushed with NS and Heparin flush. ?? Where will this happen? Either home health will come to you or you will go to the Infusion Center or the [facility] Clinic. Here is some contact information [...] questions or concerns about your port * Nursing Note - Gela Singer - [...] daily., Disp: 90 tablet, Rfl: 3 HYDROcodone-acetaminophen (Strandquist) 5-325 MG tablet, Take 1 tablet by [...] ([facility] st Contact Info) Description 01/06/2025 8:30 AM EDT Clinical Support [facility] Hematology/BMT and Cellular Therapy Program [address] [place] [phone] 01/06/2025 9:00 AM EDT Procedure Visit [facility] Hematology/BMT and Cellular Therapy Program [address] [place] [phone] Kierra oNvak APRN [address] [facility] [address] [place] [phone] 01/13/2025 9:30 AM EDT Clinical Support [facility] Hematology/BMT and Cellular Therapy Program [address] [place] [phone] 01/13/2025 10:00 AM EDT Office Visit [facility] Hematology/BMT and Cellular Therapy Program [address] [place] [phone] Isaura Wynn APRN [address] [facility] [address] [place] [phone] 01/13/2025 11:30 AM EDT Appointment [facility] Infusion [address] [place] [phone] 01/14/2025 2:00 PM EDT Appointment [facility] [address] [place] [phone] 01/15/2025 2:00 PM EDT Appointment [facility] [address] [place] [address] 01/16/2025 2:00 PM EDT Appointment [facility] [address] [place] [address] 01/17/2025 2:00 PM EDT Appointment [facility] [address] [place] [address] 01/18/2025 2:00 PM EDT Appointment [facility] [address] [place] [address] 01/19/2025 2:00 PM EDT Appointment [facility] [address] [place] [address] 03/10/2025 11:20 AM EDT Office Visit [facility] Head, Neck & Respiratory [address] [facility], [address] [place] [address] Elsa Razo, RACING BOARD MARKER [address] [place] [address] Scheduled Referrals Name Type Priority Associated Diagnoses Order Schedule Discharge Ambulatory referral to [facility] Outpatient Referral Routine Myelodysplasia (myelodysplastic syndrome) (CMS/HCC) [...] for port placement. New AML, starting chemotherapy. Bull Ladle Tender: Mckinley Lee MD Secondary Pleat Patternmaker: Dr. David Holt Rad Dose: 6 mGy [...] was placed supine on the fluoro table. Hematology Oncology Consultant ultrasonography revealed the vein to be compressible [...] with no evidence of complication. Device: 6 Finnish port catheter cut to length of 25 cm. COMPARISON: None. FINDINGS: Patent R IJV COMPLICATION: No. Procedure Note Mckinley Lee MD - 12/02/2024 CLINICAL INDICATION: 69M here for port placement. New AML, starting chemotherapy. Bull Ladle Tender: Mckinley Lee MD Secondary Pleat Patternmaker: Dr. David Holt Rad Dose: 6 mGy [...] patient was placed supine on the fluoro table.Hematology Oncology Consultant ultrasonography revealed the vein to be compressible [...] well with no evidence ofcomplication. Device: 6 Finnish port catheter cut to length of 25 cm. COMPARISON: None. FINDINGS: Patent R IJV COMPLICATION: No. IMPRESSION: Successful placement of subcutaneous chest port; line is ready for use.Tip is at cavoatrial junction. PLAN: Postprocedural monitoring for 30 minutes Follow-up in [facility] clinic in 1 week Line is ready [...] MD on 12/02/2024 7:02 AM Isaura Wynn RACING BOARD MARKER IMG IR PROCEDURES Final Result * Transfuse [...] ORDERAB LES Final Result BLOOD BANK [address] [place] [address], * (ABNORMAL) WBC Differential (12/01/2024 9:39 AM EDT) Differential Type Automated LAB HEMATOLOGY METHOD 12/01/2024 11:33 AM EDT [facility] Neutrophils % 9 % LAB HEMATOLOGY METHOD 12/01/2024 11:33 AM EDT [facility] Lymphocytes % 84 % LAB HEMATOLOGY METHOD 12/01/2024 11:33 AM EDT [facility] Monocytes % 6 % LAB HEMATOLOGY METHOD 12/01/2024 11:33 AM EDT [facility] Eosinophils % 1 % LAB HEMATOLOGY METHOD 12/01/2024 11:33 AM EDT [facility] Basophils % 0 % LAB HEMATOLOGY METHOD 12/01/2024 11:33 AM EDT [facility] Immature Granulocytes % 0 % LAB HEMATOLOGY METHOD 12/01/2024 11:33 AM EDT [facility] Immature Granulocytes Absolute 0.00 0.00 - 0.06 10*3/uL LAB HEMATOLOGY METHOD 12/01/2024 11:33 AM EDT [facility] Neutrophils Absolute 0.06(LL) 1.60 - 6.10 10*3/uL LAB HEMATOLOGY METHOD 12/01/2024 11:33 AM EDT [facility] Lymphocytes Absolute 0.59(L) 1.20 - 3.90 10*3/uL LAB HEMATOLOGY METHOD 12/01/2024 11:33 AM EDT [facility] Monocytes Absolute 0.04(L) 0.30 - 0.90 10*3/uL LAB HEMATOLOGY METHOD 12/01/2024 11:33 AM EDT [facility] Basophils Absolute 0.00 0.00 - 0.10 10*3/uL LAB HEMATOLOGY METHOD 12/01/2024 11:33 AM EDT [facility] Eosinophils Absolute 0.01 0.00 - 0.50 10*3/uL LAB HEMATOLOGY METHOD 12/01/2024 11:33 AM EDT [facility] Blood Venous blood specimen / Unknown Venipuncture / Unknown 12/01/2024 9:39 AM EDT 12/01/2024 9:56 AM EDT us Virgen Vargas MD LAB BLOOD ORDERABLES Final Re sult [facility] [address] [place] [address] * (ABNORMAL) CBC (12/01/2024 9:39 AM EDT) WBC Count 0.64(LL) 3.70 - 10.30 10*3/uL LAB HEMATOLOGY METHOD 12/01/2024 4:21 PM EDT [facility] RBC Count 2.29(L) 4.60 - 6.10 10*6/uL LAB HEMATOLOGY METHOD 12/01/2024 4:21 PM EDT [facility] HGB 7.6(L) 13.7 - 17.5 g/dL LAB HEMATOLOGY METHOD 12/01/2024 4:21 PM EDT [facility] HCT 20.9(L) 40.0 - 51.0 % LAB HEMATOLOGY METHOD 12/01/2024 4:21 PM EDT [facility] Platelet Count 14(LL) 155 - 369 10*3/uL LAB HEMATOLOGY METHOD 12/01/2024 4:21 PM EDT [facility] MCV 91 79 - 98 fL LAB HEMATOLOGY METHOD 12/01/2024 4:21 PM EDT [facility] MCH 33.2(H) 26.0 - 32.0 pg LAB HEMATOLOGY METHOD 12/01/2024 4:21 PM EDT [facility] MCHC 36.4(H) 30.7 - 35.5 g/dL LAB HEMATOLOGY METHOD 12/01/2024 4:21 PM EDT [facility] RDW 17.7(H) 11.5 - 14.5 % LAB HEMATOLOGY METHOD 12/01/2024 4:21 PM EDT [facility] MPV LAB HEMATOLOGY METHOD 12/01/2024 4:21 PM EDT [facility] Comment:Not Measured nRBC 0.0 <=0.0 per 100 WBCs LAB HEMATOLOGY METHOD 12/01/2024 4:21 PM EDT [facility] Blood Venous blood specimen / Unknown Venipuncture / Unknown 12/01/2024 9:39 AM EDT 12/01/2024 9:56 AM EDT us Mckinley Lee MD LAB BLOOD ORDERABLES Final R esult [facility] [address] [place] [address] * Prepare Leukocyte Reduced Platelets: 1 Units, Irradiated (12/01/2024 8:52 AM EDT) Product Code [id number] CH BLOO D BANK Dispense Status Transfused BLOOD BANK Blood Expiration Date [id number] BLOOD BANK Unit Number [id number] CH B LOOD BANK Product Blood Type 6200 BLOOD BANK Blood Type A+ BLOOD BANK Blood Venous blood specimen / Unknown Mckinley Lee MD BLOOD BANK PRODUCT ORDERABLE S Final Result Performing Organization Address [facility] de Phone Number BLOOD BANK [address] documented in this encounter Visit Diagnoses [...] mL Right Neck lidocaine-EPINEPHrine (Xylocaine W/EPI) 1 %-1:[id number] injection As needed, Starting on Sun12/01/24 at [...] documented as of this encounter Care Teams Finishing Machine Operator Relationship Specialty Start Date End Date Zhao Harris MD [address] [place] [address] [place] [address] PCP - General 12/03/20 documented as of this encounter
--- OUTSIDE RECORDS SUMMARY | 2024-12-09 08:30 | XMS_ITS | Encounter Summary ---
Author Organization [facility] Address [address] [place] [address] Care Team Providers Care Able Bodied Tankerman Name Role Phone Zhao Harris MD Primary Care Provider [phone] Reason for Visit * Reason Comments Labs Nurse Visit Encounter Details Date Type Department Care Team ([facility] Contact Info) Description 12/09/2024 8:30 AM EDT Clinical Support PAV CC Hematology/BMT and Cellular Therapy Program [address] [place] [address] [place] [address] Social History Tobacco Use Types Packs/Day Years [...] drink first t manav in the morning (EYE-CONSTRUCTION CARPENTER) to steady your nerves or to get [...] Upcoming Encounters Date Type Department Care Team ([facility] st Contact Info) Description 01/06/2025 8:30 AM EDT Clinical Support PAV CC Hematology/BMT and Cellular Therapy Program [address] [place] [phone] 01/06/2025 9:00 AM EDT Procedure Visit PAV CC Hematology/BMT and Cellular Therapy Program [address] [place] [phone] Kierra Novak, FPGA DESIGN ENGINEER 800 [facility] [address] [place] [phone] 01/13/2025 9:30 AM EDT Clinical Support PAV CC Hematology/BMT and Cellular Therapy Program [address] [phone] 01/13/2025 10:00 AM EDT Office Visit PAV CC Hematology/BMT and Cellular Therapy Program [address] [phone] Isaura Wynn, FPGA DESIGN ENGINEER 800 [facility] [address] [place] [phone] 01/13/2025 11:30 AM EDT Appointment PAV H Infusion 800 [place] [address] 01/14/2025 2:00 PM EDT Appointment PAV H Infusion 800 [place] [phone] 01/15/2025 2:00 PM EDT Appointment PAV H Infusion 800 [place] [address] 01/16/2025 2:00 PM EDT Appointment PAV H Infusion 800 [place] [address] 01/17/2025 2:00 PM EDT Appointment PAV H Infusion 800 [place] [address] 01/18/2025 2:00 PM EDT Appointment PAV H Infusion 800 [place] [address] 01/19/2025 2:00 PM EDT Appointment PAV H Infusion 800 [place] [address] 03/10/2025 11:20 AM EDT Office Visit Pav CC Head, Neck & Respiratory 800 [facility], 2nd [place] [address] Elsa Razo, FPGA DESIGN ENGINEER 800 [place] [address] documented as of this encounter Visit Diagnoses [...] documented as of this encounter Care Teams Able Bodied Tankerman Relationship Specialty Start Date End Date Zhao Harris MD [address] [address] PCP - General 12/03/20 documented as of this encounter
--- OUTSIDE RECORDS SUMMARY | 2024-12-09 09:00 | XMS_ITS | Encounter Summary ---
Author Organization [facility] Address [address] [place] [address] Care Team Providers Care Mainframe Systems Engineer Name Role Phone Zhao Harris MD Primary Care Provider + [phone] Reason for Visit * Reason Comments Procedure * Genetic Testing (Routine) - Authorized Specialty Diagnoses / Procedures Referred By Justice [email or web address] Referred To Contact Lab Diagnoses Myelodysplasia (myelodysplastic syndrome) (CMS/HCC) Procedures Leukemia/Lymphoma - Immunophenotyping by Flow Cytometry Virgen Vargas MD [address] [facility] [address] [address] Phone: tel: fax: Referral ID Status Reason Start Date Expiration Date V isits Requested Visits Authorized [id number] Authorized 11/18/2024 05/20/2026 1 1 Encounter Details Date Type Department Care Team (Latest Contact Info) Description 12/09/2024 9:00 AM EDT Procedure Visit [facility] Hematology/BMT and Cellular Therapy Program [address] [place] [address] Kierra Novak APRN [address] 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 [address] [address] 01/13/2025 9:30 AM EDT Clinical Support [facility] Hematology/BMT and Cellular Therapy Program [address] [phone] 01/13/2025 10:00 AM EDT Office Visit [facility] Hematology/BMT and Cellular Therapy Program 750 [facility], [address] [place] [phone] Isaura Wynn, SEAT INSTALLER 800 [facility] [address] [place] [phone] 01/13/2025 11:30 AM EDT Appointment [facility] [address] [place] [address] 01/14/2025 2:00 PM EDT Appointment [facility] [address] [place] [address] 01/15/2025 2:00 PM EDT Appointment [facility] [address] [place] [address] 01/16/2025 2:00 PM EDT Appointment [facility] [address] [place] [address] 01/17/2025 2:00 PM EDT Appointment [facility] [address] [place] [address] 01/18/2025 2:00 PM EDT Appointment [facility] [address] [place] [address] 01/19/2025 2:00 PM EDT Appointment [facility] [address] [place] [address] 03/10/2025 11:20 AM EDT Office Visit [facility] Head, Neck & Respiratory 800 [facility], [address] [place] [address] Elsa Razo, SEAT INSTALLER [address] [place] [phone] documented as of this encounter Procedures Procedure [...] Type Bone Marrow 12/16/2024 5:59 PM EDT [facility] Clinical Indication Acute Myeloid Leukemia 12/16/2024 5:59 PM EDT [facility] Specimen Adequacy Adequate 025 5:59 PM EDT [facility] Chromosome Analysis Result Giemsa-banded metaphase cells from unstimulated bone marrow cultures showed the following chromosome pattern: 43~45,X,-Y,t(4;1 4)(q21;q32),add( 5)(q13),add(16)( q11.2),-17,add(2 0)(q11.2)[cp13]/ 46,XY[7] 12/16/2024 5:59 PM EDT [facility] Interpretation Abnormal male chromosome analysis. [...] were observed on this patient's previous specimen [id number] and indicate persistent disease. Clinical correlation is recommended. Note: Per [employer] (CAP) requirement additional karyotypes were performed and charged due to the presence of clonal abnormalities. # cells counted = 20 # cells analyzed = 20 # cells karyotyped = 3 Band resolution: 400 12/16/2024 5:59 PM EDT [facility] Pathologist Signature Reviewed by: Mesfin Rae 12/16/2024 5:59 PM EDT [facility] Bone Marrow Non-blood Collection / Unknown 12/09/2024 10:15 AM EDT 12/09/2024 12:48 PM EDT us Virgen Vargas MD LAB CYTOGENETICS ORDERABLES F inal Result [facility] [address] [place] [address] * Leukemia/Lymphoma - Immunophenotyping by Flow Cytometry (12/09/2024 10:15 AM EDT) Clinical Indication AML 12/10/2024 8:51 AM EDT [facility] Flow Cytometry Interpretation APPROXIMATELY 23% POPULATION OF CD34 POSITIVE MYELOID BLASTS EXPRESSING CD34, CD117, CD13, CD33, HLA-DR, PARTIAL CD7, VARIABLE CD123, PARTIAL CD38, AND MODERATE CD45, SEE COMMENT, BONE MARROW ASPIRATE. 12/10/2024 8:51 AM EDT [facility] Comments Specimen viability is 86.0%. [...] light chains, CD123 12/10/2024 8:51 AM EDT [facility] Disclaimer This test was developed and its performance characteristics determined by the Immuno-Molecular Pathology Laboratory at the [facility]. It has not been cleared or approved [...] on the report. 12/10/2024 8:51 AM EDT [facility] Pathologist Signature Reviewed by: Gerry Jensen MD 12/10/2024 8:51 AM EDT [facility] MRD Indicated Test Not Indicated 8:51 AM EDT [facility] Bone Marrow Specimen from bone marrow obtained by aspiration / Unknown Non-blood Collection / Unknown 12/09/2024 10:15 AM EDT 12/09/2024 11:28 AM EDT us Virgen Vargas MD LAB FLOW CYTOMETRY ORDERABLES Final Result [facility] [address] [place] [address] * Bone marrow exam (12/09/2024 10:15 AM EDT) Case Report Bone Marrow Case: [id number] Authorizing Provider: Virgen Vargas MD Collected: 12/09/2024 1015 Ordering Location: [facility] Hematology/BMT and Received: 12/09/2024 1145 Cellular Therapy Program Pathologist: Gerry Jensen MD Specimens: A) - Bone Marrow Aspirate, right B) - Bone Marrow Biopsy, right C) - Peripheral Blood for Bone Marrow 12/19/2024 5:35 PM EDT [facility] Cytogenetics Report, Addendum Chromosome Analysis [...] were observed on this patient's previous specimen [id number] and indicate persistent disease. 12/19/2024 5:35 PM EDT [facility] Addendum electronically signed by Gerry Jensen MD on 12/19/2024 at 1735 EDT Final Diagnosis PERIPHERAL BLOOD AND BONE MARROW, RIGHT POSTERIOR ILIAC CREST, (PERIPHERAL SMEAR, ASPIRATE SMEAR, AND CORE BIOPSY): - NORMOCELLULAR BONE MARROW WITH ERYTHROID HYPERPLASIA, VIRTUALLY ABSENT MATURING GRANULOPOIESIS, AND 14% BLASTS, SEE COMMENT. 12/19/2024 5:35 PM EDT [facility] at 1706 EDT Comment While by flow cytometric analysis blasts constitute 23% of cellularity, the majority of bone marrow cellularity consists of erythroid precursors that are removed by flow cytometry. This leads to the discrepancy between the percentage of blasts by flow cytometry and morphologic examination. Nonetheless, the findings are consistent with some residual disease. 12/19/2024 5:35 PM EDT [facility] Clinical Information AML s/p cycle 2 12/19/2024 5:35 PM EDT [facility] CBC and Differential PERIPHERAL BLOOD: [...] Platelets are decreased. 12/19/2024 5:35 PM EDT [facility] Bone Marrow Differential BONE MARROW DIFFERENTIAL: 400 cells Normal Patient Neutrophils 15-50 0 Metamyelocytes 4-19 0 Myelocytes 1-18 1 Promyelocytes 1-8 0 Blasts 0-2 14 Monocytes 0-5 3 Erythroid 16-38 76 Lymphocytes 3-24 1 Eosinophils 0-6 0 Basophils 0-2 0 Plasma cells 0-4 5 Other 12/19/2024 5:35 PM EDT [facility] Aspirate Smear The bone marrow [...] predominantly normal morphology. 12/19/2024 5:35 PM T [facility] Core Biopsy The core biopsy is small and shows 5 mm of a normocellular bone marrow with a cellularity of approximately 30% that is predominantly comprised of erythroid precursors. Erythropoiesis is left-shifted, but maturing. Maturing granulopoiesis is virtually absent. Myeloid cells almost entirely consists of immature precursors. Megakaryocytes are decreased and exhibit predominantly normal morphology. 12/19/2024 5:35 PM T [facility] Flow Cytometry Interpretation Flow cytometric analysis shows approximately 23% population of CD34 positive myeloid blasts expressing CD34, CD117, CD13, CD33, HLA-DR, partial CD7, variable CD123, partial CD38, and moderate CD45 ([id number]). 12/19/2024 5:35 PM T [facility] Gross Description B. RIGHT A single specimen is received in formalin labeled bone marrow biopsy right posterior iliac crest and consists of 1 piece(s) of red/white tissue measuring 0.7 cm in length 0.2 cm in diameter. The specimen is submitted in to Histology for decalcification and routine processing. Cold Time: <1m 12/19/2024 5:35 PM EDT [facility] Note: A resident was involved in the service. I attest I examined the relevant preparations for the specimens and confirmed the diagnosis or interpretation. 12/19/2024 5:35 PM EDT [facility] Bone Marrow Peripheral blood specimen [...] PATHOLOGY ORDERABLES Edit ed Result - Final [facility] [address] [place] [address] * BIOPSY BONE MARROW (12/09/2024 10:00 AM EDT) Narrative Kierra Novak APRN - 12/09/2024 10:00 AM EDT Kierra Novak APRN 12/09/2024 12:08 PM Biopsy bone marrow Date/Time: 12/09/2024 10:00 AM Performed by: Kierra Novak APRN Authorized by: Kierra Novak APRN Consent: Consent obtained: Written Consent given by: Patient Risks, benefits, and alternatives were discussed: yes Risks discussed: Bleeding, infection and pain [place] protocol: Procedure explained and questions answered to [...] ORDERABLE S Final Result Performing Organization Address City/State/[facility] Co de Phone Number BLOOD BANK [address] * Morphology (12/09/2024 8:45 AM EDT) Elliptocytes/ Ovalocytes Present LAB HEMATOLOGY METHOD 12/09/2024 11:45 AM EDT [facility] RBC Morphology Slide Reviewed LAB HEMATOLOGY METHOD 12/09/2024 11:45 AM EDT [facility] Platelet Estimate Platelet smear estimate consistent with automated count LAB HEMATOLOGY METHOD 12/09/2024 11:45 AM EDT [facility] Blood Venous blood specimen / Unknown Venipuncture / Unknown 12/09/2024 8:45 AM EDT 12/09/2024 8:56 AM EDT Virgen Vargas MD LAB BLOOD ORDERABLES Final Re sult [facility] [address] [place] [address] * (ABNORMAL) Manual Differential (12/09/2024 8:45 AM [...] LAB HEMATOLOGY METHOD 12/09/2024 11:45 AM EDT [facility] Eosinophils Absolute 0.00 0.00 - 0.50 10*3/uL LAB HEMATOLOGY METHOD 12/09/2024 11:45 AM EDT [facility] Basophils Absolute 0.00 0.00 - 0.10 10*3/uL LAB HEMATOLOGY METHOD 12/09/2024 11:45 AM EDT [facility] Blood Venous blood specimen / Unknown Venipuncture / Unknown 12/09/2024 8:45 AM EDT 12/09/2024 8:56 AM EDT Virgen Vargas MD LAB BLOOD ORDERABLES Final Re sult Performing Organization Address [facility]/ZIP Co de Phone Number [facility] [address] [place] [address] * Peripheral blood smear, pathologist interpretation (12/09/2024 8:45 AM EDT) Clinical Diagnosis, Peripheral Smear AML under therapy LAB HEMATOLOGY METHOD 12/09/2024 11:39 AM EDT [facility] Interpretation , Peripheral Smear Pancytopenia with rare circulating blast. A resident was involved in the service. I attest I examined the relevant preparations for the specimens and confirmed the diagnosis or interpretation. 12/09/2024 11:39 AM EDT [facility] Pathologist Signature, Peripheral Smear 12/09/2024 11:39 AM EDT [facility] Comment:Reviewed by: Martha Lopez MD LAB CP ASR DISCLAIMER Yes 12/09/2024 11:39 AM EDT [facility] Blood Venous blood specimen / Unknown Venipuncture / Unknown 12/09/2024 8:45 AM EDT 12/09/2024 8:56 AM EDT Virgen Vargas MD LAB PATHOLOGY ORDERABLES Terri l Result Performing Organization Address City/[facility]/ZIP Co de Phone Number [facility] [address] [place] [address] * (ABNORMAL) Comprehensive metabolic panel (12/09/2024 8:45 AM EDT) Glucose, Plasma 103(H) 74 - 99 mg/dL 12/09/2024 9:33 AM EDT [facility] BUN, Plasma 9 8 - 23 mg/dL 12/09/2024 9:33 AM EDT [facility] Creatinine, Plasma 0.78 0.70 - 1.20 mg/dL 12/09/2024 9:33 AM EDT [facility] BUN/Creatinine Ratio 12 12/09/2024 9:33 AM EDT [facility] Sodium, Plasma 140 136 - 145 mmol/L 12/09/2024 9:33 AM EDT [facility] Potassium, Plasma 3.9 3.6 - 4.9 mmol/L 12/09/2024 9:33 AM EDT [facility] Chloride, Plasma 109(H) 97 - 107 mmol/L 12/09/2024 9:33 AM EDT [facility] CO2, Plasma 21(L) 22 - 29 mmol/L 12/09/2024 9:33 AM EDT [facility] Anion Gap 10 6 - 16 mmol/L 12/09/2024 9:33 AM EDT [facility] Total Calcium, Plasma 9.0 8.9 - 10.2 mg/dL 12/09/2024 9:33 AM EDT [facility] Total Protein 6.6 6.3 - 7.9 g/dL 12/09/2024 9:33 AM EDT [facility] Albumin, Plasma 3.9 3.5 - 5.2 g/dL 12/09/2024 9:33 AM EDT [facility] AST, Plasma 31 10 - 50 U/L 12/09/2024 9:33 AM EDT [facility] ALT, Plasma 37 10 - 50 U/L 12/09/2024 9:33 AM EDT [facility] Alkaline Phosphatase, Plasma 81 40 - 115 U/L 12/09/2024 9:33 AM EDT [facility] Total Bilirubin, Plasma 0.6 0.2 - 1.1 mg/dL 12/09/2024 9:33 AM EDT [facility] eGFRcr 96.5 mL/min/1.7 3m*2 12/09/2024 9:33 AM EDT [facility] Comment:Reported eGFRcr in m L/min/1.73m2 is based the CKD-EPI 2020 equation that does not use a race coefficient. Blood Venous blood specimen / Unknown Venipuncture / Unknown 12/09/2024 8:45 AM EDT 12/09/2024 9:01 AM EDT us Virgen Vargas MD LAB BLOOD ORDERABLES Final Re sult [facility] [address] [place] [address] * (ABNORMAL) CBC and differential (12/09/2024 8:45 AM EDT) WBC Count 0.68(LL) 3.70 - 10.30 10*3/uL LAB HEMATOLOGY METHOD 12/09/2024 11:45 AM EDT [facility] RBC Count 2.34(L) 4.60 - 6.10 10*6/uL LAB HEMATOLOGY METHOD 12/09/2024 11:45 AM EDT [facility] HGB 7.5(L) 13.7 - 17.5 g/dL LAB HEMATOLOGY METHOD 12/09/2024 11:45 AM EDT [facility] HCT 20.6(L) 40.0 - 51.0 % LAB HEMATOLOGY METHOD 12/09/2024 11:45 AM EDT [facility] Platelet Count 24(L) 155 - 369 10*3/uL LAB HEMATOLOGY METHOD 12/09/2024 11:45 AM EDT [facility] MCV 88 79 - 98 fL LAB HEMATOLOGY METHOD 12/09/2024 11:45 AM EDT [facility] MCH 32.1(H) 26.0 - 32.0 pg LAB HEMATOLOGY METHOD 12/09/2024 11:45 AM EDT [facility] MCHC 36.4(H) 30.7 - 35.5 g/dL LAB HEMATOLOGY METHOD 12/09/2024 11:45 AM EDT [facility] RDW 17.1(H) 11.5 - [...] MD LAB BLOOD ORDERABLES Final Re sult [facility] [address] [place] [id number] documented in this encounter Visit Diagnoses Diagnosis [...] documented as of this encounter Care Teams Mainframe Systems Engineer Relationship Specialty Start Date End Date Zhao Harris MD [address] [place] [phone] PCP - General 12/03/20 documented as of this encounter
--- OUTSIDE RECORDS SUMMARY | 2024-12-09 13:30 | XMS_ITS | Encounter Summary ---
Author Organization [facility] Address [address] [place] [address] Care Team Providers Care Section Housekeeper Name Role Phone Zhao Harris MD Primary Care Provider [phone] Reason for Visit * Reason Comments Follow-up Encounter Details Date Type Department Care Team (Latest Contact Info) Description 12/09/2024 1:30 PM EDT Clinical Support [facility] Cancer Acute Treatment Clinic 800 [facility], 2nd [place] [phone] Myelodysplasia (myelodysplastic syndrome) (CMS/HCC) (Primary Dx); Thrombocytopenia [...] drink first t manav in the morning (EYE-TRANSITIONS MANAGER RN) to steady your nerves or to [...] Encounters Date Type Department Care Team ([facility] st Contact Info) Description 01/06/2025 8:30 AM EDT Clinical Support [facility] Hematology/BMT and Cellular Therapy Program 750 [facility], [address] [place] [address] [place] [address] 01/06/2025 9:00 AM EDT Procedure Visit [facility] CC Hematology/BMT and Cellular Therapy Program [address] [place] [address] Kierra Novak, DIRECTOR SECURITY MANAGEMENT 800 [facility] [address] [place] [phone] 01/13/2025 9:30 AM EDT Clinical Support [facility] Hematology/BMT and Cellular Therapy Program [address] [phone] 01/13/2025 10:00 AM EDT Office Visit [facility] CC Hematology/BMT and Cellular Therapy Program [address] [place] [phone] Isaura Wynn, DIRECTOR SECURITY MANAGEMENT 800 [facility] [address] [place] [phone] 01/13/2025 11:30 AM EDT Appointment P[facility] H Infusion 800 [place] [address] 01/14/2025 2:00 PM EDT Appointment P[facility] H Infusion 800 [place] [phone] 01/15/2025 2:00 PM EDT Appointment P[facility] H Infusion 800 [place] [address] 01/16/2025 2:00 PM EDT Appointment P[facility] H Infusion 800 [place] [address] 01/17/2025 2:00 PM EDT Appointment P[facility] H Infusion 800 [place] [address] 01/18/2025 2:00 PM EDT Appointment P[facility] H Infusion 800 [place] [address] 01/19/2025 2:00 PM EDT Appointment P[facility] H Infusion 800 [place] [address] 03/10/2025 11:20 AM EDT Office Visit Pav CC Head, Neck & Respiratory 800 [facility], 2nd [place] [phone] Elsa Razo, DIRECTOR SECURITY MANAGEMENT 800 [place] [address] documented as of this encounter Procedures Procedure Name Priority Date/Time Associated Diagnosis Comments PREPARE RBC Routine 12/09/2024 1:17 PM EDT Myelodysplasia (myelodysplastic syndrome) (CMS/HCC) Thrombocytopenia (CMS/HCC) documented in this encounter Results * Transfuse RBC, Irradiated (12/09/2024 3:57 PM EDT) Kayli CHIU BLOOD TRANSFUSION ORDERA BLES Final Result * Prepare Leukocyte Reduced RBC: 1 Units, Irradiated (12/09/2024 1:17 PM EDT) Product Code [id number] CH BLOO D BANK Dispense Status Transfused BLOOD BANK Blood Expiration Date [id number] BLOOD BANK Unit Number [id number] B LOOD BANK Product Blood Type 9500 BLOOD BANK Blood Type O- BLOOD BANK Crossmatch Compatible BLOOD BANK Other Kayli CHIU BLOOD BANK PRODUCT ORDER VIKAS Final Result BLOOD BANK 800 [place] [address], documented in this encounter Visit Diagnoses Diagnosis [...] documented as of this encounter Care Teams Section Housekeeper Relationship Specialty Start Date End Date Zhao Harris MD [address] [facility] [place] [address] PCP - General 12/03/20 documented as of this encounter
--- OUTSIDE RECORDS SUMMARY | 2024-12-11 08:30 | XMS_ITS | Encounter Summary ---
Author Organization [facility] Address [address] [place] [address] Care Team Providers Care Customer Relations Advisor Name Role Phone Zhao Harris MD Primary Care Provider [phone] Reason for Visit * Reason Comments Nurse Visit Labs Encounter Details Date Type Department Care Team (Latest Contact Info) Description 12/11/2024 8:30 AM EDT Clinical Support [facility] Hematology/BMT and Cellular Therapy Program [address] [place] [address] [place] [address] Myelodysplasia (myelodysplastic syndrome) (CMS/HCC) Social History Tobacco [...] drink first t manav in the morning (EYE-KENNEL SUPERVISOR) to steady your nerves or to [...] Upcoming Encounters Date Type Department Care Team ([facility] Contact Info) Description 01/06/2025 8:30 AM EDT Clinical Support [facility] Hematology/BMT and Cellular Therapy Program [address] [place] [phone] 01/06/2025 9:00 AM EDT Procedure Visit [facility] Hematology/BMT and Cellular Therapy Program [address] [phone] Kierra Novak, LEATHER COATER 800 [facility] [address] [place] [phone] 01/13/2025 9:30 AM EDT Clinical Support [facility] Hematology/BMT and Cellular Therapy Program [address] [place] [phone] 01/13/2025 10:00 AM EDT Office Visit [facility] Hematology/BMT and Cellular Therapy Program [address] [phone] Isaura Wynn, LEATHER COATER 800 [facility] [address] [place] [phone] 01/13/2025 11:30 AM EDT Appointment [facility] H Infusion [address] [place] [phone] 01/14/2025 2:00 PM EDT Appointment [facility] Infusion [address] [place] [phone] 01/15/2025 2:00 PM EDT Appointment [facility] Infusion [address] [place] [address] 01/16/2025 2:00 PM EDT Appointment [facility] Infusion [address] [place] [address] 01/17/2025 2:00 PM EDT Appointment [facility] Infusion [address] [place] [address] 01/18/2025 2:00 PM EDT Appointment [facility] Infusion [address] [place] [address] 01/19/2025 2:00 PM EDT Appointment [facility] H Infusion [address] [place] [address] 03/10/2025 11:20 AM EDT Office Visit Pav CC Head, Neck & Respiratory 800 [facility], 2nd [place] [address] Elsa Razo, LEATHER COATER [address] [place] [phone] documented as of this encounter Procedures Procedure [...] METHOD 12/11/2024 10:53 AM EDT [facility] RBC Morphology Slide Reviewed LAB HEMATOLOGY METHOD 12/11/2024 10:53 AM EDT [facility] Platelet Estimate Platelet smear estimate consistent with automated count LAB HEMATOLOGY METHOD 12/11/2024 10:53 AM EDT [facility] Blood Venous blood specimen / Unknown Venipuncture / Unknown 12/11/2024 8:38 AM EDT 12/11/2024 8:50 AM EDT Virgen Vargas MD LAB BLOOD ORDERABLES Final Re sult Performing Organization Address City/[facility] Co de Phone Number 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 Dysplastic neutrophils (hypogranular) are noted. Moderate anemia and marked thrombocytopen ia. 12/11/2024 4:46 PM EDT [facility] Pathologist Signature, Peripheral Smear 12/11/2024 4:46 PM EDT [facility] Comment:Reviewed by: Omar Peralta MD Blood Venous blood specimen / Unknown Venipuncture / Unknown 12/11/2024 8:38 AM EDT 12/11/2024 8:50 AM EDT Virgen Vargas MD LAB PATHOLOGY ORDERABLES Terri l Result Performing Organization Address City/[facility]/ZIP Co de Phone Number [facility] [address] [place] [address] * (ABNORMAL) Manual Differential (12/11/2024 8:38 AM EDT) Blasts % 1 % LAB HEMATOLOGY METHOD 12/11/2024 10:53 AM EDT [facility] Promyelocytes % 0 % LAB HEMATOLOGY METHOD 12/11/2024 10:53 AM EDT [facility] Myelocytes % 0 [...] METHOD 12/11/2024 10:53 AM EDT [facility] Basophils % 0 % LAB HEMATOLOGY METHOD 12/11/2024 10:53 AM EDT [facility] Blasts Absolute 0.01 10*3/UL LAB HEMATOLOGY METHOD 12/11/2024 10:53 AM EDT [facility] Promyelocytes Absolute 0.00 10*3/uL LAB HEMATOLOGY METHOD 12/11/2024 10:53 AM EDT [facility] Myelocytes Absolute 0.00 10*3/uL LAB HEMATOLOGY METHOD 12/11/2024 10:53 AM EDT [facility] Metamyelocytes Absolute 0.00 10*3/uL LAB HEMATOLOGY [...] METHOD 12/11/2024 10:53 AM EDT [facility] Blood Venous blood specimen / Unknown Venipuncture / Unknown 12/11/2024 8:38 AM EDT 12/11/2024 8:50 AM EDT us Virgen Vargas MD LAB BLOOD ORDERABLES Final Re sult [facility] [address] [place] [phone] * (ABNORMAL) CBC and differential (12/11/2024 8:38 AM EDT) WBC Count 0.61(LL) 3.70 - 10.30 10*3/uL LAB HEMATOLOGY METHOD 12/11/2024 10:54 AM EDT [facility] RBC Count 2.80(L) 4.60 - 6.10 10*6/uL LAB HEMATOLOGY METHOD 12/11/2024 10:54 AM EDT [facility] HGB 8.9(L) 13.7 - 17.5 g/dL LAB HEMATOLOGY METHOD 12/11/2024 10:54 AM EDT [facility] HCT 25.1(L) 40.0 - 51.0 % LAB HEMATOLOGY METHOD 12/11/2024 10:54 AM EDT [facility] Platelet Count 11(LL) 155 - 369 10*3/uL LAB HEMATOLOGY METHOD 12/11/2024 10:54 AM EDT [facility] MCV 90 79 - 98 fL LAB HEMATOLOGY METHOD 12/11/2024 10:54 AM EDT [facility] MCH 31.8 26.0 - 32.0 pg LAB HEMATOLOGY METHOD 12/11/2024 10:54 AM EDT [facility] MCHC 35.5 30.7 - 35.5 g/dL LAB HEMATOLOGY METHOD 12/11/2024 10:54 AM EDT [facility] RDW 16.2(H) 11.5 - 14.5 % LAB HEMATOLOGY METHOD 12/11/2024 10:54 AM EDT [facility] MPV 12.3 8.8 - 12.5 fL LAB HEMATOLOGY METHOD 12/11/2024 10:54 AM EDT [facility] nRBC 4.9(H) <=0.0 per 100 WBCs LAB HEMATOLOGY METHOD 12/11/2024 10:54 AM EDT [facility] Differential Type Manual LAB HEMATOLOGY METHOD 12/11/2024 10:54 AM EDT [facility] Blood Venous blood specimen / [...] BLOOD ORDERABLES Final Re sult [facility] [address] [place] [address] * (ABNORMAL) Comprehensive Metabolic Panel, Plasma (12/11/2024 8:38 AM EDT) Glucose, Plasma 105(H) 74 - 99 mg/dL 12/11/2024 9:19 AM EDT [facility] BUN, Plasma 10 8 - 23 mg/dL 12/11/2024 9:19 AM EDT [facility] Creatinine, Plasma 0.75 0.70 - 1.20 mg/dL 12/11/2024 9:19 AM EDT [facility] BUN/Creatinine Ratio 13 12/11/2024 9:19 AM EDT [facility] Sodium, Plasma 140 136 - 145 mmol/L 12/11/2024 9:19 AM EDT [facility] Potassium, Plasma 4.1 3.6 - 4.9 mmol/L 12/11/2024 9:19 AM EDT [facility] Chloride, Plasma 110(H) 97 - 107 mmol/L 12/11/2024 9:19 AM EDT [facility] CO2, Plasma 22 22 - 29 mmol/L 12/11/2024 9:19 AM EDT [facility] Anion Gap 8 6 - 16 mmol/L 12/11/2024 9:19 AM EDT [facility] Total Calcium, Plasma 9.1 8.9 - 10.2 mg/dL 12/11/2024 9:19 AM EDT [facility] Total Protein 6.9 6.3 - 7.9 g/dL 12/11/2024 9:19 AM EDT [facility] Albumin, Plasma 4.0 3.5 - 5.2 g/dL 12/11/2024 9:19 AM EDT [facility] AST, Plasma 38 10 - 50 U/L 12/11/2024 9:19 AM EDT [facility] ALT, Plasma 40 10 - 50 U/L 12/11/2024 9:19 AM EDT [facility] Alkaline Phosphatase, Plasma 86 40 - 115 U/L 12/11/2024 9:19 AM EDT [facility] Total Bilirubin, Plasma 0.6 0.2 - 1.1 mg/dL 12/11/2024 9:19 AM EDT [facility] eGFRcr 97.7 mL/min/1.7 3m*2 12/11/2024 9:19 AM EDT [facility] Comment:Reported eGFRcr in m L/min/1.73m2 is based the CKD-EPI 2020 equation that does not use a race coefficient. Blood Venous blood specimen / Unknown Venipuncture / Unknown 12/11/2024 8:38 AM EDT 12/11/2024 8:50 AM EDT us Virgen Vargas MD LAB BLOOD ORDERABLES Final Re sult [facility] [address] [place] [address] documented in this encounter Visit Diagnoses Diagnosis Myelodysplasia (myelodysplastic syndrome) (CMS/[facility]) Myelodysplastic syndrome, unspecified documented in this encounter Additional Health Concerns Assessment Noted Time PHQ-9 Depression Total Score: 0 09/11/19 25 9:15 AM EST A fall risk assessment has been complete d for the patient 12/11/2024 2:38 PM EDT A Body Mass Index follow-up plan has been documented for the patient 12/11/2024 3:05 PM EDT documented as of this encounter Care Teams Customer Relations Advisor Relationship Specialty Start Date End Date Zhao Harris MD [address] [place] [address] PCP - General 12/03/20 documented as of this encounter
--- OUTSIDE RECORDS SUMMARY | 2024-12-11 09:00 | XMS_ITS | Encounter Summary ---
Author Organization [facility] Address [address] [place] [address] Care Team Providers Care Sales And Service Engineer Name Role Phone Zhao Harris MD Primary Care Provider [phone] Encounter Details Date Type Department Care Team (Latest Contact Info) Description 12/11/2024 9:00 AM EDT Office Visit [facility] Hematology/BMT and Cellular Therapy Program [address] [address] Virgen Vargas MD 800 [facility] [address] [place] [phone] Myelodysplasia (myelodysplastic syndrome) (CMS/HCC) (Primary Dx); Encounter [...] drink first t manav in the morning (EYE-PSYCHIATRY RESIDENT) to steady your nerves or to get [...] a preserved mata-T cell profile with a CD4:RY5qqywu of 2.7:1. Polyclonal B-cells (3%) and a small plasma cell population (0.6%) were also identified. Cytogenetics: Normal. Molecular Testing: PCR for NPM1 and FLT3 mutations are negative. Next-generation sequencing (NGS) myeloid panel: ASXL1 - p.[id number] - VAF 25% TP53 - p.[id number] - VAF 36% U2AF1 - p.Sex686Ibm - VAF 33% 10/20/2024- started treatment with cycle 1 of azacytidine and venetoclax. 11/10/2024- bone marrow: Morphology: acute myeloid leukemia with 35% blasts. Cytogenetics: 43~46,X,-Y,t(4;14)(q21;q32),add(5)(q13),add(16)(q11.2),-17,add(20)(q11.2),+mar[c p14]/46,XY[6] 11/18/2024- started treatment with cycle 2 of azacytidine and venetoclax. 12/09/2024- bone marrow exam normocellular bone marrow with erythroid hyperplasia, virtually absent maturing granulopoiesis, and 14% blasts. Myelodysplasia (myelodysplastic syndrome) ([facility]/HCC) 09/29/2024 Initial Diagnosis Myelodysplasia (myelodysplastic syndrome) ([facility]) 10/20/2024 - Chemotherapy azaCITIDine (Vidaza) 150 mg [...] History: Diagnosis Date Arteriosclerotic cardiovascular disease Cancer ([facility]) Chronic stable angina ([facility]) Hypertension Past Surgical History: Procedure Laterality Date [...] a durable remission in the context of JA87-chscdxn AML. The third, and most promising, option would be enrollment in a clinical trial, ideally one that targets TP53- mutant disease or incorporates novel agents. Unfortunately, there are no active trials available locally or at [facility], but I have reached out to Dr. Fernandes at [facility] to explore any opportunities there. [...] in completing the documentation. Virgen Vargas M.D. Alternative Energy Engineer Division of Hematology/BMT [facility] [1] Current Outpatient Medications: acyclovir [...] constipation., Disp: 30 tablet, Rfl: 3 HYDROcodone-acetaminophen ([place]) 5-325 MG tablet, Take 1 tablet by [...] Upcoming Encounters Date Type Department Care Team ([facility] st Contact Info) Description 01/06/2025 8:30 AM EDT Clinical Support [facility] Hematology/BMT and Cellular Therapy Program [address] [address] 01/06/2025 9:00 AM EDT Procedure Visit [facility] Hematology/BMT and Cellular Therapy Program [address] [address] Kierra Novak, PIGMENT WEIGHER 800 [facility] [address] [place] [address] 01/13/2025 9:30 AM EDT Clinical Support [facility] Hematology/BMT and Cellular Therapy Program 750 [facility] [place] [address] 01/13/2025 10:00 AM EDT Office Visit [facility] CC Hematology/BMT and Cellular Therapy Program 750 [facility] [place] [address] Isaura Wynn, PIGMENT WEIGHER 800 [facility] [address] [place] [phone] 01/13/2025 11:30 AM EDT Appointment P[facility] H Infusion [address] [place] [address] 01/14/2025 2:00 PM EDT Appointment [facility] H Infusion [address] [place] [address] 01/15/2025 2:00 PM EDT Appointment [facility] H Infusion [address] [place] [address] 01/16/2025 2:00 PM EDT Appointment [facility] H Infusion [address] [place] [address] 01/17/2025 2:00 PM EDT Appointment [facility] H Infusion [address] [place] [address] 01/18/2025 2:00 PM EDT Appointment [facility] H Infusion [address] [place] [address] 01/19/2025 2:00 PM EDT Appointment [facility] H Infusion [address] [place] [address] 03/10/2025 11:20 AM EDT Office Visit Pav CC Head, Neck & Respiratory 800 [facility], 2nd [place] [address] Elsa Razo, PIGMENT WEIGHER [address] [place] [phone] documented as of this encounter Visit Diagnoses [...] documented as of this encounter Care Teams Sales And Service Engineer Relationship Specialty Start Date End Date Zhao Harris MD [address] [place] [address] PCP - General 12/03/20 documented as of this encounter
--- OUTSIDE RECORDS SUMMARY | 2024-12-11 13:00 | XMS_ITS | Encounter Summary ---
Author Organization [facility] Address [address] [place] [address] Care Team Providers Care Machine Sewer Name Role Phone Zhao Harris MD Primary Care Provider [phone] Encounter Details Date Type Department Care Team (Latest Contact Info) Description 12/11/2024 1:00 PM EDT Clinical Support [facility] Cancer Acute Treatment [facility] [address] 2nd [place] [address] Myelodysplasia (myelodysplastic syndrome) (CMS/HCC) (Primary Dx); Thrombocytopenia [...] drink first t manav in the morning (EYE-TAB CUTTING MACHINE OPERATOR) to steady your nerves or [...] Support [facility] Hematology/BMT and Cellular Therapy Program [address] [place] [address] [place] [address] 01/06/2025 9:00 AM EDT Procedure Visit [facility] CC Hematology/BMT and Cellular Therapy Program [address] [phone] Kierra Novak, ADMINISTRATOR PESTICIDE 800 [facility] [address] [place] [phone] 01/13/2025 9:30 AM EDT Clinical Support [facility] CC Hematology/BMT and Cellular Therapy Program [address] [phone] 01/13/2025 10:00 AM EDT Office Visit [facility] CC Hematology/BMT and Cellular Therapy Program [address] [phone] Isaura Wynn, ADMINISTRATOR PESTICIDE 800 [facility] [address] [place] [phone] 01/13/2025 11:30 AM EDT Appointment PAV H Infusion 800 [place] [address] 01/14/2025 2:00 PM EDT Appointment PAV H Infusion [address] [place] [phone] 01/15/2025 2:00 PM EDT Appointment PAV H Infusion [address] [place] [address] 01/16/2025 2:00 PM EDT Appointment PAV H Infusion [address] [place] [address] 01/17/2025 2:00 PM EDT Appointment P[facility] H Infusion [address] [place] [address] 01/18/2025 2:00 PM EDT Appointment P[facility] H Infusion 800 [place] [phone] 01/19/2025 2:00 PM EDT Appointment P[facility] H Infusion [address] [place] [address] 03/10/2025 11:20 AM EDT Office Visit Pav CC Head, Neck & Respiratory [address] [place] [address] Elsa Razo, ADMINISTRATOR PESTICIDE 800 [place] [address] documented as of this encounter Procedures Procedure Name Priority Date/Time Associated Diagnosis Comments PLATELET COUNT, BLOOD STAT 12/11/2024 2:04 PM EDT PREPARE PLATELETS Routine 12/11/2024 12: 57 PM EDT Myelodysplasia (myelodysplastic syndrome) (CMS/HCC) Thrombocytopenia (CMS/HCC) documented in this encounter Results * Transfuse platelets (12/11/2024 2:15 PM EDT) Result [facility] Kayli CHIU BLOOD TRANSFUSION ORDERA BLES Final Result * (ABNORMAL) Platelet count (12/11/2024 2:04 PM EDT) Platelet Count 35(L) 155 - 369 10*3/uL LAB HEMATOLOGY METHOD 12/11/2024 2:37 PM EDT [facility] Blood Venous blood specimen / Unknown Venipuncture / Unknown 12/11/2024 2:04 PM EDT 12/11/2024 2:34 PM EDT Result [facility] Glenroy Kim MD LAB BLOOD ORDERABLES Fi nal Result [facility] 800 [place] [address] * Prepare Leukocyte Reduced Platelets: 1 Units (12/11/2024 12:57 PM EDT) Product Code [id number] CH BLOO D BANK Dispense Status Transfused BLOOD BANK Blood Expiration Date [id number] BLOOD BANK Unit Number [id number] CH B LOOD BANK Product Blood Type 6200 BLOOD BANK Blood Type A+ CH BLOOD BANK Blood Venous blood specimen / Unknown Kayli CHIU BLOOD BANK PRODUCT ORDER VIKAS Final Result BLOOD BANK [address] documented in this encounter Visit [...] as of this encounter Care Teams Machine Sewer Relationship Specialty Start Date End Date Zhao Harris MD [address] [place] [address] PCP - General 12/03/20 documented as of this encounter
--- OUTSIDE RECORDS SUMMARY | 2024-12-11 14:30 | XMS_ITS | Encounter Summary ---
Author Organization [facility] Address [address] [place] [address] Care Team Providers Care Emergency Physician Name Role Phone Zhao Harris MD Primary Care Provider [phone] Reason for Visit * Consultation (Routine) - Closed Specialty Diagnoses / Procedures Referred By Contact Referred To Contact Interventional Radiology Diagnoses Myelodysplasia (myelodysplastic syndrome) (CMS/HCC) Mckinley Lee MD [address] [place] [address] Phone: tel:[phone] fax:[phone] [facility] Vascular Interventional Radiology [address] [facility] Room [address] [place] [phone] Phone: tel: Referral ID Status Reason Start Date Expiration Date V isits Requested Visits Authorized [id number] Closed Specialty Services Required 12/01/2024 06/02/2026 1 1 Encounter Details Date Type Department Care Team (Latest Contact Info) Description 12/11/2024 2:30 PM EDT Office Visit [facility] Vascular Interventional Radiology [address] [facility] Room [address] [place] [phone] Judy Leung APRN, SHEEBA [address] [place] [address] Port-A-Cath in place (Primary Dx); [...] drink first t manav in the morning (EYE-PEOPLESOFT HCM CONSULTANT) to steady your nerves or to [...] Orders * Progress Notes - Judy Leung, COMMUNITY HEALTH ADVOCATE, DNP - 12/11/2024 2:30 PM EDT Images [...] been accessed. He is being referred to [facility] for possible trials. Allergies: Patient has no [...] for port placement. New AML, starting chemotherapy. Harbor Police Lieutenant: Mckinley Lee MD Secondary Sheet Metal Apprentice: Dr. David Holt Rad Dose: 6 mGy [...] was placed supine on the fluoro table. Veterinarian Poultry ultrasonography revealed the vein to be compressible [...] placement on 12/01/24 - Being referred to [facility] for possible trials PLAN: - Port accessed in clinic today and functioning well - Denies fever or chills; no drainage, swelling at site - Instructed to call with any signs of infection or malfunction - Return to [facility] PRN Medical Decision Making/Plan: Diagnoses and all orders for this visit: Port-A-Cath in place - heparin flush (porcine) 100 UNIT/ML injection 500 Units Myelodysplasia (myelodysplastic syndrome) (CMS/HCC) - Discharge Ambulatory referral to [facility] I spent 35 minutes on this [...] daily., Disp: 90 tablet, Rfl: 3 HYDROcodone-acetaminophen ([place]) 5-325 MG tablet, Take 1 tablet by [...] PAV Hematology/BMT and Cellular Therapy Program [address] [address] 01/06/2025 9:00 AM EDT Procedure Visit [facility] Hematology/BMT and Cellular Therapy Program [address] [phone] Kierra Novak APRN 800 [facility] [address] [place] [phone] 01/13/2025 9:30 AM EDT Clinical Support [facility] CC Hematology/BMT and Cellular Therapy Program [address] [phone] 01/13/2025 10:00 AM EDT Office Visit [facility] Hematology/BMT and Cellular Therapy Program 750 [facility], [address] [place] [phone] Isaura Wynn, COMMUNITY HEALTH ADVOCATE 800 [facility] [address] [place] [phone] 01/13/2025 11:30 AM EDT Appointment PAV H Infusion [address] [place] [address] 01/14/2025 2:00 PM EDT Appointment PAV H Infusion [address] [place] [address] 01/15/2025 2:00 PM EDT Appointment PAV H Infusion [address] [place] [address] 01/16/2025 2:00 PM EDT Appointment PAV H Infusion [address] [place] [address] 01/17/2025 2:00 PM EDT Appointment PAV H Infusion [address] [place] [address] 01/18/2025 2:00 PM EDT Appointment PAV H Infusion [address] [place] [address] 01/19/2025 2:00 PM EDT Appointment PAV H Infusion [address] [place] [phone] 03/10/2025 11:20 AM EDT Office Visit Pav CC Head, Neck & Respiratory 800 [facility], 2nd [place] [phone] Elsa Razo, COMMUNITY HEALTH ADVOCATE [address] [place] [address] documented as of this encounter [...] ZINA KIRAN Final Result BLOOD BANK 800 [place] [address], documented in this encounter Visit Diagnoses Diagnosis [...] documented as of this encounter Care Teams Emergency Physician Relationship Specialty Start Date End Date Zhao Harris MD [address] [place] [address] PCP - General 12/03/20 documented as of this encounter
--- OUTSIDE RECORDS SUMMARY | 2024-12-16 08:00 | XMS_ITS | Encounter Summary ---
Author Organization [facility] Address [address] [place] [address] Care Team Providers Care Machine Stripper Cutter Name Role Phone Zhao Harris MD Primary Care Provider [phone] Reason for Visit * Reason Comments Labs Nurse Visit Encounter Details Date Type Department Care Team ([facility] Contact Info) Description 12/16/2024 8:00 AM EDT Clinical Support PAV CC Hematology/BMT and Cellular Therapy Program [address] [place] [address] [place] [address] Social History Tobacco Use Types Packs/Day Years [...] drink first t manav in the morning (EYE-HUMAN CAPITAL CONSULTANT) to steady your nerves or to [...] Upcoming Encounters Date Type Department Care Team ([facility] st Contact Info) Description 01/06/2025 8:30 AM EDT Clinical Support PAV CC Hematology/BMT and Cellular Therapy Program [address] [place] [phone] 01/06/2025 9:00 AM EDT Procedure Visit P[facility] CC Hematology/BMT and Cellular Therapy Program [address] [place] [phone] Kierra Novak, IRON PLASTIC BULLET MAKER 800 [facility] [address] [place] [phone] 01/13/2025 9:30 AM EDT Clinical Support PAV CC Hematology/BMT and Cellular Therapy Program [address] [phone] 01/13/2025 10:00 AM EDT Office Visit PAV CC Hematology/BMT and Cellular Therapy Program [address] [phone] Isaura Wynn, IRON PLASTIC BULLET MAKER 800 [facility] [address] [place] [phone] 01/13/2025 11:30 AM EDT Appointment PAV H Infusion 800 [place] [address] 01/14/2025 2:00 PM EDT Appointment PAV H Infusion 800 [place] [address] 01/15/2025 2:00 PM EDT Appointment PAV H Infusion 800 [place] [address] 01/16/2025 2:00 PM EDT Appointment PAV H Infusion 800 [place] [address] 01/17/2025 2:00 PM EDT Appointment PAV H Infusion 800 [place] [address] 01/18/2025 2:00 PM EDT Appointment PAV H Infusion 800 [place] [address] 01/19/2025 2:00 PM EDT Appointment PAV H Infusion 800 [place] [address] 03/10/2025 11:20 AM EDT Office Visit Pav CC Head, Neck & Respiratory 800 [facility], 2nd [place] [address] Elsa Razo, IRON PLASTIC BULLET MAKER 800 [place] [address] documented as of this encounter Visit Diagnoses [...] as of this encounter Care Teams Machine Stripper Cutter Relationship Specialty Start Date End Date Zhao Harris MD [address] [address] PCP - General 12/03/20 documented as of this encounter
--- OUTSIDE RECORDS SUMMARY | 2024-12-16 08:30 | XMS_ITS | Encounter Summary ---
Author Organization [facility] Address [address] [place] [address] Care Team Providers Care System Safety Engineer Name Role Phone Zhao Harris MD Primary Care Provider [phone] Reason for Referral * Genetic Testing (Routine) - Authorized Specialty Diagnoses / Procedures Referred By Justice t Referred To Contact Lab Diagnoses Myelodysplasia (myelodysplastic syndrome) (CMS/HCC) Procedures Leukemia/Lymphoma - Immunophenotyping by Flow Cytometry Virgen Vargas MD [address] [facility] [address] [address] Phone: tel: fax: Referral ID Status Reason Start Date Expiration Date V isits Requested Visits Authorized [id number] Authorized 12/18/2024 06/19/2026 1 1 * Genetic Testing (Routine) - Authorized Specialty Diagnoses / Procedures [facility] Referred To Contact Lab Diagnoses Myelodysplasia (myelodysplastic syndrome) (CMS/HCC) Procedures Bone marrow exam Virgen Vargas MD [address] [facility] Cancer [address] [address] Phone: tel: fax: Referral ID Status Reason Start Date Expiration Date V isits Requested Visits Authorized [id number] Authorized 12/18/2024 06/19/2026 1 1 Reason for Visit * Reason Comments Acute Myeloid Leukemia Encounter Details Date Type Department Care Team (Latest Contact Info) Description 12/16/2024 8:30 AM EDT Office Visit [facility] CC Hematology/BMT and Cellular Therapy Program [address] [facility] [place] [address] Isaura Wynn, [facility] [address] [facility] [address] [place] [phone] Myelodysplasia (myelodysplastic syndrome) (CMS/HCC) (Primary Dx) Social History Tobacco Use Types Packs/Day Years Used Date Smoking Tobacco: Every Day Cigarettes 1.5 15 Started: 1994 Passive Smoke Exposure: Current Smokeless Tobacco: Never Tobacco Cessation:Ready to Q uit: Not Asked; Counseling Given: Not Answered Alcohol Use Standard Drinks/Week Comments Not Currently [...] drink first t manav in the morning ([employer]K [employer]GER) to steady your nerves or to [...] Sign Reading Time Taken Comments Blood Pressure 122/70 12/16/2024 8:21 AM EDT Pulse 70 12/16/2024 8:21 AM EDT Temperature 36.6 C (97.8 F) 12/16/2024 8:21 AM EDT Respiratory Rate 17 12/16/2024 8:21 AM EDT Oxygen Saturation 95% 12/16/2024 8:21 AM EDT Inhaled Oxygen Concentration - - Weight 84.4 kg (186 lb 1.1 oz) 12/16/2024 8:21 A M EDT Height 170.2 cm (5' 7 ) 12/16/2024 8:21 AM EDT Body Mass Index 29.14 12/16/2024 8:21 AM EDT documented in this encounter Miscellaneous Notes * Progress Notes - Isaura Wynn, [facility] - 12/16/2024 8:30 AM EDT HEMATOLOGY ONCOLOGY NOTE Patient ID: Hugo Lyons is a 69 y.o. male. Referring Physician: No referring provider defined for this encounter. Primary Care Provider: Zhao Harris MD Chief Complaint: Chief Complaint Patient presents with Acute Myeloid Leukemia Treatment Plan: Azacitidine Daily x 7 / [...] a preserved mata-T cell profile with a CD4:SA2hlqpe of 2.7:1. Polyclonal B-cells (3%) and a small plasma cell population (0.6%) were also identified. Cytogenetics: Normal. Molecular Testing: PCR for NPM1 and FLT3 mutations are negative. Next-generation sequencing (NGS) myeloid panel: ASXL1 - [id number] - VAF 25% TP53 - p.[id number] - VAF 36% U2AF1 - p.[id number] - VAF 33% 10/20/2024- started treatment with [...] Laterality Date JOINT REPLACEMENT Left left shoulder PORTACATH PLACEMENT 12/01/2024 TOTAL KNEE ARTHROPLASTY Right after broken patella [...] use: Never Interval History: Hugo Lyons feels okay. He is fatigued. Denies fever or infection, shortness of breath, n/v/d. Review of systems: 14- point ROS is reviewed and negative except in HPI. Objective Physical Exam: Vital Signs for this encounter: BSA: 2 meters squared Visit Vitals BP 122/70 Pulse 70 Temp 36.6 ??C (97.8 ??F) Resp 17 Ht 1.702 m (5' 7 ) Wt 84.4 kg (186 lb 1.1 oz) SpO2 95% BMI 29.14 kg/m?? Smoking Status Every Day BSA 2 m?? GENERAL: appears stated age, no acute distress HEENT anicteric sclerae without conjunctival injection NECK: Trachea appears midline RESP: No increased work of breathing on room air. No wheezes or crackles CARDIAC: regular rate and rhythm. Normal S1, S2. No murmurs. MUSK: no joint swelling or deformity. GI: no signs of cachexia, abdomen soft, lax, not tender. No masses SKIN: no rash or lesions NEURO: Alert and awake. 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 The third, and most promising, option would be enrollment in a clinical trial, ideally one that targets TP53- mutant disease or incorporates novel agents. Unfortunately, there are no active trials available locally or at [facility], but I have reached out to Dr. Fernandes at [facility] to explore any opportunities there. We will [...] be limited and associated with significant risks. Proceed with cycle 3 azacitidine today. Patient and family with continue to explore clinical trial options. Headaches- CT head in 11/03/24 shows no [...] would be an option in the future. Isaura Wynn APRN [1] Current Outpatient Medications: acyclovir (Zovirax) 800 MG tablet, Take 1 tablet (800 mg) by mouth in the morning and 1 tablet (800mg) before bedtime., Disp: 60 tablet, Rfl: 3 bisoprolol (Zebeta) 5 MG tablet, Take 1 tablet (5 mg) by mouth daily., Disp: 90 tablet, Rfl: 3 HYDROcodone-acetaminophen (Sherman) 5-325 MG tablet, Take 1 tablet by [...] daily. Days 1-14, Disp: 14 tablet, Rfl:0 magic mouthwash BLM (FIRST-Mouthwash) suspension, Use 15 mL in the mouth or throat 4 times a day asneeded for mucositis (swish and swallow prn for mouth sores). Swish and swallow 15 mL 4 times dailyprn for mouth sores, Disp: 237 mL, Rfl: 2 * Progress Notes - Marlin Storey, PharmD - 12/16/2024 8:30 AM EDT Pharmacy Hematology/Oncology Treatment Note Hugo Lyons is a 69 y.o. male with MDS Study Patient: no Treatment Plan reviewed for azacitidine/venetoclax [x] Follow-Up Clinical Review for Cycle 3 Interval History: BMBx from 12/09 showed persistent disease. Will continue with current treatment asbridge therapy while patient seeks clinical trial options at other institutions, Today's Wt: Wt Readings from Last 1 Encounters: 12/16/24 84.4 kg (186 lb 1.1 oz) Dosing Wt: 90 kg Dosing Ht: 170.2 cm DosingBSA: 2.02 m2 Recent Labs: Lab Results Component Value Date WBC 0.59 (LL) 12/16/2024 HGB 8.0 (L) 12/16/2024 HCT 22.1 (L) 12/16/2024 MCV 89 12/16/2024 PLT <5 (LL) 12/16/2024 Lab Results Component Value Date GLUCOSE 110 (H) 12/16/2024 CALCIUM 8.9 12/16/2024 NA 140 12/16/2024 K 4.2 12/16/2024 CO2 21 (L) 12/16/2024 CL 109 (H) 12/16/2024 BUN 10 12/16/2024 CREATININE 0.79 12/16/2024 Lab Results Component Value Date ALT 25 12/16/2024 AST 23 12/16/2024 ALKPHOS 95 12/16/2024 BILITOT 0.6 12/16/2024 Lab Results Component Value Date NEUTROABS 0.03 (LL) 12/16/2024 Lab Results Component Value Date MG 2.4 12/16/2024 Lab Results Component Value Date TSH 1.02 10/20/2024 Lab Results Component Value Date URINEPRO 30 (A) 11/03/2024 Vitals: Visit Vitals BP 122/70 Pulse 70 Temp 36.6 ??C (97.8 ??F) Resp 17 Treatment/Therapy Plan: Azacitidine 75 mg/m2 IV D1-7 Venetoclax 70 mg PO D1-14 Every 28 days [x] Venetoclax dose reduced d/t DDI with posaconazole Current Treatment Plan History: Aza/Hany: Cycle 1: 10/20/24 Cycle 2: 11/18/24 Cycle 3: 12/16/24 Prior Treatment History: N/A Plan: Venetoclax rx sent to [facility]. Refills due monthly. Patient will return to clinic in 4 weeks. Will follow-up at that time. documented in this encounter Plan of Treatment Upcoming Encounters Date Type Department Care Team ([facility] Contact Info) Description 01/06/2025 8:30 AM EDT Clinical Support [facility] Hematology/BMT and Cellular Therapy Program [address] [place] [phone] 01/06/2025 9:00 AM EDT Procedure Visit [facility] Hematology/BMT and Cellular Therapy Program [address] [place] [address] [phone] Kierra Novak, [facility] [address] [facility] [address] [place] [phone] 01/13/2025 9:30 AM EDT Clinical Support [facility] Hematology/BMT and Cellular Therapy Program [address] [place] [address] [phone] 01/13/2025 10:00 AM EDT Office Visit [facility] Hematology/BMT and Cellular Therapy Program [address] [place] [address] [phone] Isaura Wynn, [facility] [address] [facility] [address] [place] [address] [phone] 01/13/2025 11:30 AM EDT Appointment [facility] H Infusion [address] [place] [address] 01/14/2025 2:00 PM EDT Appointment [facility] Infusion [address] [place] [address] 01/15/2025 2:00 PM EDT Appointment [facility] Infusion [address] [place] [address] 01/16/2025 2:00 PM EDT Appointment [facility] Infusion [address] [place] [address] 01/17/2025 2:00 PM EDT Appointment [facility] Infusion [address] [place] [address] 01/18/2025 2:00 PM EDT Appointment [facility] Infusion [address] [place] [address] 01/19/2025 2:00 PM EDT Appointment [facility] Infusion [address] [place] [phone] 03/10/2025 11:20 AM EDT Office Visit Pav CC Head, Neck & Respiratory [address] [facility] [address] [place] [phone] Elsa Razo, [facility] [address] [place] [address] Scheduled Orders Name Type Priority Associated Diagnoses Order Schedule Bone marrow exam Pathology and Cytology Routine Myelodysplasia (myelodysplastic syndrome) ([facility]) Expected: 12/18/2024 (Approximate), Expires: 06/20/2026 Leukemia/Lymphoma - Immunophenotyping by Flow Cytometry Lab Routine Myelodysplasia (myelodysplastic syndrome) ([facility]) Expected: 12/18/2024 (Approximate), Expires: 06/20/2026 documented as of this encounter Procedures Procedure Name Priority Date/Time Associated Diagnosis Comments GROUP A STREPTOCOCCUS BY PCR Routine 12/16/2024 9:40 AM EDT Myelodysplasia (myelodysplastic syndrome) ([facility]) STREPTOCOCCUS CULTURE Routine 12/16/2024 9:40 AM EDT Myelodysplasia (myelodysplastic syndrome) (CMS/HCC) CBC WITH AUTO DIFFERENTIAL Routine 12/16/2024 8:10 AM EDT Myelodysplasia (myelodysplastic syndrome) (CMS/HCC) URIC ACID, PLASMA Routine 12/16/2024 8:1 0 AM EDT Myelodysplasia (myelodysplastic syndrome) (CMS/HCC) PHOSPHORUS, PLASMA Routine 12/16/2024 8: 10 AM EDT Myelodysplasia (myelodysplastic syndrome) (CMS/HCC) MAGNESIUM, PLASMA Routine 12/16/2024 8:1 0 AM EDT Myelodysplasia (myelodysplastic syndrome) (CMS/HCC) LACTATE DEHYDROGENASE, PLASMA Routine 12/16/2024 8:10 AM EDT Myelodysplasia (myelodysplastic syndrome) (CMS/HCC) COMPREHENSIVE METABOLIC PANEL, PLASMA Routine 12/16/2024 8:10 AM EDT Myelodysplasia (myelodysplastic syndrome) (CMS/HCC) documented in this encounter Results * Streptococcus Culture (12/16/2024 9:40 AM EDT) Pathologist [facility] Culture Reading Strep A No Streptococcus pyogenes or Streptococcus dysgalactiae isolated 12/17/2024 2:28 PM EDT [facility] Swab Pharyngeal structure / Unknown Non-blood Collection / Unknown 12/16/2024 9:40 AM EDT 12/16/2024 10:10 AM EDT us Isaura Wynn APRN LAB MICROBIOLOGY - GENERAL ORD ERABLES Final Result [facility] [address] [place] [address] * Group A Streptococcus by PCR (12/16/2024 9:40 AM EDT) Pathologist [facility] Group A Streptococcus PCR Result Not Detected Not Detected 12/16/2024 11:53 AM EDT [facility] Swab Pharyngeal structure / Unknown Non-blood Collection / Unknown 12/16/2024 9:40 AM EDT 12/16/2024 10:10 AM EDT us Isaura Wynn APRN LAB MICROBIOLOGY - GENERAL ORD ERABLES Final Result Performing Organization Address City/[facility]/[place] [address] * (ABNORMAL) Uric acid (12/16/2024 8:10 AM EDT) Uric Acid, Plasma 3.0(L) 3.7 - 8.0 mg/dL 12/16/2024 8:58 AM EDT [facility] Blood Venous blood specimen / Unknown Venipuncture / Unknown 12/16/2024 8:10 AM EDT 12/16/2024 8:27 AM EDT us Isaura Wynn [facility] LAB BLOOD ORDERABLES Final Res ult Performing Organization Address City/[facility]/[place] [address] * Phosphorus, Plasma (12/16/2024 8:10 AM EDT) Phosphorus, Plasma 3.4 2.5 - 4.5 mg/dL 12/16/2024 8:58 AM EDT [facility] Blood Venous blood specimen / Unknown Venipuncture / Unknown 12/16/2024 8:10 AM EDT 12/16/2024 8:27 AM EDT us Isaura Wynn [facility] LAB BLOOD ORDERABLES Final Res ult [facility] [address] [place] [address] * Magnesium, Plasma (12/16/2024 8:10 AM EDT) Magnesium, Plasma 2.4 1.9 - 2.4 mg/dL 12/16/2024 8:58 AM EDT [facility] Blood Venous blood specimen / Unknown Venipuncture / Unknown 12/16/2024 8:10 AM EDT 12/16/2024 8:27 AM EDT us Isaura Gautam Mary Jovelvet [facility] LAB BLOOD ORDERABLES Final Res ult Performing Organization Address [facility]/ZIP Co de Phone Number [facility] [address] [place] [address] * Lactate Dehydrogenase, Plasma (12/16/2024 8:10 AM EDT) LDH, Plasma 230 116 - 250 U/L 12/16/2024 8:58 AM EDT [facility] Blood Venous blood specimen / Unknown Venipuncture / Unknown 12/16/2024 8:10 AM EDT 12/16/2024 8:27 AM EDT us Isaura Wynn [facility] LAB BLOOD ORDERABLES Final Res ult Performing Organization Address [facility] Co de Phone Number [facility] [address] [place] [address] * (ABNORMAL) Comprehensive Metabolic Panel, Plasma (12/16/2024 8:10 AM EDT) Glucose, Plasma 110(H) 74 - 99 mg/dL 12/16/2024 8:58 AM EDT [facility] BUN, Plasma 10 8 - 23 mg/dL 12/16/2024 8:58 AM EDT [facility] Creatinine, Plasma 0.79 0.70 - 1.20 mg/dL 12/16/2024 8:58 AM EDT [facility] BUN/Creatinine Ratio 13 12/16/2024 8:58 AM EDT [facility] Sodium, Plasma 140 136 - 145 mmol/L 12/16/2024 8:58 AM EDT [facility] Potassium, Plasma 4.2 3.6 - 4.9 mmol/L 12/16/2024 8:58 AM EDT [facility] Chloride, Plasma 109(H) 97 - 107 mmol/L 12/16/2024 8:58 AM EDT [facility] CO2, Plasma 21(L) 22 - 29 mmol/L 12/16/2024 8:58 AM EDT [facility] Anion Gap 10 6 - 16 mmol/L 12/16/2024 8:58 AM EDT [facility] Total Calcium, Plasma 8.9 8.9 - 10.2 mg/dL 12/16/2024 8:58 AM EDT [facility] Total Protein 6.8 6.3 - 7.9 g/dL 12/16/2024 8:58 AM EDT [facility] Albumin, Plasma 4.0 3.5 - 5.2 g/dL 12/16/2024 8:58 AM EDT [facility] AST, Plasma 23 10 - 50 U/L 12/16/2024 8:58 AM EDT [facility] ALT, Plasma 25 10 - 50 U/L 12/16/2024 8:58 AM EDT [facility] Alkaline Phosphatase, Plasma 95 40 - 115 U/L 12/16/2024 8:58 AM EDT [facility] Total Bilirubin, Plasma 0.6 0.2 - 1.1 mg/dL 12/16/2024 8:58 AM EDT [facility] eGFRcr 96.2 mL/min/1.7 3m*2 12/16/2024 8:58 AM EDT [facility] Comment:Reported eGFRcr in m L/min/1.73m2 is based the CKD-EPI 2020 equation that does not use a race coefficient. Blood Venous blood specimen / Unknown Venipuncture / Unknown 12/16/2024 8:10 AM EDT 12/16/2024 8:27 AM EDT us Isaura yWnn [facility] LAB BLOOD ORDERABLES Final Res ult [facility] [address] [place] [address] * (ABNORMAL) CBC and Differential (12/16/2024 8:10 AM EDT) WBC Count 0.59(LL) 3.70 - 10.30 10*3/uL LAB HEMATOLOGY METHOD 12/16/2024 10:15 AM EDT [facility] RBC Count 2.48(L) 4.60 - 6.10 10*6/uL LAB HEMATOLOGY METHOD 12/16/2024 10:15 AM EDT [facility] HGB 8.0(L) 13.7 - 17.5 g/dL LAB HEMATOLOGY METHOD 12/16/2024 10:15 AM EDT [facility] HCT 22.1(L) 40.0 - 51.0 % LAB HEMATOLOGY METHOD 12/16/2024 10:15 AM EDT [facility] Platelet Count <5(LL) 155 - 369 10*3/uL LAB HEMATOLOGY METHOD 12/16/2024 10:15 AM EDT [facility] MCV 89 79 - 98 fL LAB HEMATOLOGY METHOD 12/16/2024 10:15 AM EDT [facility] MCH 32.3(H) 26.0 - 32.0 pg LAB HEMATOLOGY METHOD 12/16/2024 10:15 AM EDT [facility] MCHC 36.2(H) 30.7 - 35.5 g/dL LAB HEMATOLOGY METHOD 12[facility]16[facility]2024 [facility] RDW 16.3(H) 11.5 - 14.5 % LAB HEMATOLOGY METHOD 12/16/2024 10:15 AM EDT [facility] MPV LAB HEMATOLOGY METHOD 12/16/2024 10:15 AM EDT [facility] Comment:Not Measured nRBC 0.0 <=0.0 per 100 WBCs LAB HEMATOLOGY METHOD 12/16/2024 10:[facility] Differential Type Automated LAB HEMATOLOGY METHOD 12/16/2024 10:15 AM EDT [facility] Neutrophils % 5 % LAB HEMATOLOGY METHOD 12/16/2024 10:15 AM EDT [facility] Lymphocytes % 90 % LAB HEMATOLOGY METHOD 12/16/2024 10:15 AM EDT [facility] Monocytes % 5 % LAB HEMATOLOGY METHOD 12/16/2024 10:15 AM EDT [facility] Eosinophils % 0 % LAB HEMATOLOGY METHOD 12/16/2024 10:15 AM EDT [facility] Basophils % 0 % LAB HEMATOLOGY METHOD 12/16/2024 10:15 AM EDT [facility] Immature Granulocytes % 0 % LAB HEMATOLOGY METHOD 12/16/2024 10:15 AM EDT [facility] Neutrophils Absolute 0.03(LL) 1.60 - 6.10 10*3/uL LAB HEMATOLOGY METHOD 12/16/2024 10:15 AM EDT [facility] Lymphocytes Absolute 0.53(L) 1.20 - 3.90 10*3/uL LAB HEMATOLOGY METHOD 12/16/2024 10:15 AM EDT [facility] Monocytes Absolute 0.03(L) 0.30 - 0.90 10*3/uL LAB HEMATOLOGY METHOD 12/16/2024 10:15 AM EDT [facility] Eosinophils Absolute 0.00 0.00 - 0.50 10*3/uL LAB HEMATOLOGY METHOD 12/16/2024 10:15 AM EDT [facility] Basophils Absolute 0.00 0.00 - 0.10 10*3/uL LAB HEMATOLOGY METHOD 12/16/2024 10:15 AM EDT [facility] Immature Granulocytes Absolute 0.00 0.00 - 0.06 10*3/uL LAB HEMATOLOGY METHOD 12/16/2024 10:15 AM EDT [facility] Blood Venous blood specimen / Unknown Venipuncture / Unknown 12/16/2024 8:10 AM EDT 12/16/2024 8:28 AM EDT Narrative [facility] - 12/16/2024 10:15 AM EDT Therapeutic decision making should be based on absolute values, rather than percentages. us Isaura Wynn APRN LAB BLOOD ORDERABLES Final Res ult [facility] [address] [place] [address] documented in this encounter Visit Diagnoses Diagnosis [...] documented as of this encounter Care Teams System Safety Engineer Relationship Specialty Start Date End Date Zhao Harris MD [address] [place] [address] PCP - General 12/03/20 documented as of this encounter
--- OUTSIDE RECORDS SUMMARY | 2024-12-16 10:00 | XMS_ITS | Encounter Summary ---
Author Organization [facility] Address [address] [place] [address] Care Team Providers Care Gum Rolling Machine Operator Name Role Phone Zhao Hraris MD Primary Care Provider + [phone] Reason for Visit * Episode Based Medications (Routine) - Authorized Specialty Diagnoses / Procedures Referred By Justice mcgee Referred To Contact Diagnoses Myelodysplasia (myelodysplastic syndrome) (CMS/HCC) Procedures Azacitidine Daily x 7 / Venetoclax Every 28 Days Virgen Vargas MD 800 [facility] [address] [address] Phone: tel: fax: Virgen Vargas MD [address] [address] Phone: tel: fax: Referral ID Status Reason Start Date Expiration Date V isits Requested Visits Authorized [id number] Authorized 10/20/2024 04/21/2026 1 91 Encounter Details Date Type Department Care Team (Latest Contact Info) Description 12/16/2024 10:00 AM EDT - 12/16/2024 10:59 AM EDT Hospital Encounter [facility] H Infusion [address] [place] [phone] Myelodysplasia (myelodysplastic syndrome) (CMS/HCC) (Primary Dx); Thrombocytopenia [...] drink first t manav in the morning (EYE-WAREHOUSE HELPER) to steady your nerves or to [...] 5 MG tabletIndications :Coronary artery disease involving [place] heart with angina pectoris, unspecified vessel or lesion type (CMS/HCC),Hyperte nsion, unspecified type Take 1 tablet (5 mg) by mouth daily. 90 tablet 3 09/11/2024 HYDROcodone-aceta minophen ([place]) 5-325 MG tablet Take 1 tablet by [...] to being accessed. 30 g 2 12/09/2024 nitroglycerin (Nitrostat) 0.4 MG SL tabletIndications :Coronary artery disease involving [place] heart with angina pectoris, unspecified vessel or [...] needed for constipation. 30 tablet 3 10/23/2024 magic mouthwash BLM (FIRST-Mouthwash) suspension Use 15 mL in the mouth or throat 4 times a day as needed for mucositis (swish and swallow prn for mouth sores). Swish and swallow 15 mL 4 times daily prn for mouth sores 237 mL 2 12/16/2024 venetoclax (Venclexta) 10 MG tabletIndications :Myelodysplasia (myelodysplastic [...] 750 [facility], [address] [place] [address] [place] [phone] 01/06/2025 9:00 AM EDT Procedure Visit P[facility] CC Hematology/BMT and Cellular Therapy Program [address] [phone] Kierra Novak, PAINTLESS DENT REPAIR TECHNICIAN 800 [facility] [address] [place] [phone] 01/13/2025 9:30 AM EDT Clinical Support P[facility] CC Hematology/BMT and Cellular Therapy Program [address] [address] 01/13/2025 10:00 AM EDT Office Visit P[facility] CC Hematology/BMT and Cellular Therapy Program [address] [address] Isaura Wynn, PAINTLESS DENT REPAIR TECHNICIAN 800 [facility] [address] [place] [phone] 01/13/2025 11:30 AM EDT Appointment P[facility] H Infusion [address] [place] [address] 01/14/2025 2:00 PM EDT Appointment P[facility] H Infusion [address] [place] [address] 01/15/2025 2:00 PM EDT Appointment P[facility] H Infusion [address] [place] [address] 01/16/2025 2:00 PM EDT Appointment P[facility] H Infusion [address] [place] [address] 01/17/2025 2:00 PM EDT Appointment [facility] H Infusion [address] [place] [address] 01/18/2025 2:00 PM EDT Appointment [facility] H Infusion [address] [place] [address] 01/19/2025 2:00 PM EDT Appointment P[facility] H Infusion [address] [place] [address] 03/10/2025 11:20 AM EDT Office Visit Pav CC Head, Neck & Respiratory 800 [facility], [address]nd [place] [address] Elsa Razo, PAINTLESS DENT REPAIR TECHNICIAN [address] [place] [address] documented as of this encounter [...] LAB HEMATOLOGY METHOD 12/16/2024 1:00 PM EDT [facility] Blood Venous blood specimen / Unknown Venipuncture / Unknown 12/16/2024 12:23 PM EDT 12/16/2024 12:51 PM EDT us Virgen Vargas MD LAB BLOOD ORDERABLES Final Re sult [facility] [address] [place] [address] * Transfuse platelets (12/16/2024 12:21 PM EDT) [...] ORDERABLE S Final Result BLOOD BANK [address] [place] [address], * Exception to Standard Practice, Pathologist Interpretation [...] ORDERAB LES Final Result Performing Organization Address City/[facility]/ZIP Co de Phone Number BLOOD BANK [address] [place] [address], [place] * Prepare Leukocyte Reduced Platelets: 1 Units (12/16/2024 10:54 AM EDT) Product Code [id number] CH BLOO D BANK Dispense Status Transfused BLOOD BANK Blood Expiration Date [id number] BLOOD BANK Unit Number [id number] CH B LOOD BANK Product Blood Type 8400 BLOOD BANK Blood Type AB+ CH BLOOD BANK Blood Venous blood specimen / Unknown Kayli CHIU BLOOD BANK PRODUCT ORDER VIKAS Final Result Performing Organization Address [facility] [[email or web address]] Co de Phone Number BLOOD BANK [address] [place] [address], [place] * Prepare Leukocyte Reduced RBC: 1 Units, Irradiated (12/16/2024 10:54 AM EDT) Product Code [id number] CH BLOO D BANK Dispense Status Transfused BLOOD BANK Blood Expiration Date [id number] BLOOD BANK Unit Number [id number] CH B LOOD BANK Product Blood Type 9500 BLOOD BANK Blood Type O- CH BLOOD BANK Crossmatch Compatible CH BLOOD BANK Other Kayli CHIU BLOOD BANK PRODUCT ORDER VIKAS Final Result BLOOD BANK [address] [place] [address], documented in this encounter Visit Diagnoses Diagnosis [...] documented as of this encounter Care Teams Gum Rolling Machine Operator Relationship Specialty Start Date End Date Zhao Harris MD [address] [place] [address] PCP - General 12/03/20 documented as of this encounter
--- OUTSIDE RECORDS SUMMARY | 2024-12-16 11:00 | XMS_ITS | Encounter Summary ---
Author Organization Healthcare Address [address] [place] [address] Care Team Providers Care Motion Picture Camera Operator Name Role Phone Zhao Harris MD Primary Care Provider [phone] Encounter Details Date Type Department Care Team (Latest Contact Info) Description 12/16/2024 11:00 AM EDT - 12/16/2024 11:59 PM EDT Hospital Encounter [facility]fusion [address] [place] [address] Myelodysplasia (myelodysplastic syndrome) (CMS/HCC) (Primary Dx) Discharge [...] drink first t manav in the morning (EYE-PHYSICAL MEDICINE SPECIALIST) to steady your nerves or to [...] 5 MG tabletIndications :Coronary artery disease involving [place] heart with angina pectoris, unspecified vessel or lesion type (CMS/HCC),Hyperte nsion, unspecified type Take 1 tablet (5 mg) by mouth daily. 90 tablet 3 09/11/2024 HYDROcodone-aceta minophen ([place]) 5-325 MG tablet Take 1 tablet by [...] MG SL tabletIndications :Coronary artery disease involving red cliff heart with angina pectoris, unspecified vessel or [...] Hematology/BMT and Cellular Therapy Program [address] [address] 01/06/2025 9:00 AM EDT Procedure Visit [facility] Hematology/BMT and Cellular Therapy Program [address] [address] Kierra Novak, RIVER RAFTING GUIDE 800 [facility] [address] [place] [address] 01/13/2025 9:30 AM EDT Clinical Support [facility] Hematology/BMT and Cellular Therapy Program 750 [facility] [place] [phone] 01/13/2025 10:00 AM EDT Office Visit [facility] Hematology/BMT and Cellular Therapy Program 750 [facility] [place] [phone] Isaura Wynn, RIVER RAFTING GUIDE 800 [facility] [address] [place] [phone] 01/13/2025 11:30 AM EDT Appointment [facility] 800 [place] [address] 01/14/2025 2:00 PM EDT Appointment [facility] [address] [place] [address] 01/15/2025 2:00 PM EDT Appointment [facility] [address] [place] [address] 01/16/2025 2:00 PM EDT Appointment [facility] [address] [place] [address] 01/17/2025 2:00 PM EDT Appointment [facility] [address] [place] [address] 01/18/2025 2:00 PM EDT Appointment [facility] [address] [place] [address] 01/19/2025 2:00 PM EDT Appointment [facility] [address] [place] [address] 03/10/2025 11:20 AM EDT Office Visit [facility] Head[facility] Neck & Respiratory 800 [facility], 2nd [place] [address] Elsa Razo, RIVER RAFTING GUIDE 800 [place] [phone] documented as of this encounter Visit Diagnoses [...] documented as of this encounter Care Teams Motion Picture Camera Operator Relationship Specialty Start Date End Date Zhao Harris MD [address] [place] [address] PCP - General 12/03/20 documented as of this encounter
--- OUTSIDE RECORDS SUMMARY | 2024-12-17 08:23 | XMS_ITS | Encounter Summary ---
Author Organization [facility] Address [address] [place] [address] Care Team Providers Care Congressional Assistant Name Role Phone Zhao Harris MD Primary Care Provider + [phone] Reason for Visit * Episode Based Medications (Routine) - Authorized Specialty Diagnoses / Procedures Referred By Justice mcgee Referred To Contact Diagnoses Myelodysplasia (myelodysplastic syndrome) (CMS/HCC) Procedures Azacitidine Daily x 7 / Venetoclax Every 28 Days Virgen Vargas MD 800 [facility] [address] [address] Phone: tel: fax: Virgen Vargas MD [address] [address] Phone: tel: fax: Referral ID Status Reason Start Date Expiration Date V isits Requested Visits Authorized [id number] Authorized 10/20/2024 04/21/2026 1 91 Encounter Details Date Type Department Care Team (Latest Contact Info) Description 12/17/2024 8:23 AM EDT - 12/17/2024 11:59 PM EDT Hospital Encounter [facility] H Infusion [address] [place] [phone] Myelodysplasia (myelodysplastic syndrome) (CMS/HCC) (Primary Dx); Thrombocytopenia [...] drink first t manav in the morning (EYE-CALL CENTER DIRECTOR) to steady your nerves or to get [...] 5 MG tabletIndications :Coronary artery disease involving [place] heart with angina pectoris, unspecified vessel or lesion type (CMS/HCC),Hyperte nsion, unspecified type Take 1 tablet (5 mg) by mouth daily. 90 tablet 3 09/11/2024 HYDROcodone-aceta minophen ([place]) 5-325 MG tablet Take 1 tablet by [...] MG SL tabletIndications :Coronary artery disease involving [place] heart with angina pectoris, unspecified vessel or [...] Encounters Date Type Department Care Team ([facility] st Contact Info) Description 01/06/2025 8:30 AM EDT Clinical Support [facility] Hematology/BMT and Cellular Therapy Program [address] [place] [phone] 01/06/2025 9:00 AM EDT Procedure Visit [facility] Hematology/BMT and Cellular Therapy Program [address] [place] [phone] Kierra Novak, RIM FIRE PRIMING OPERATOR 800 [facility] [address] [place] [phone] 01/13/2025 9:30 AM EDT Clinical Support [facility] Hematology/BMT and Cellular Therapy Program [address] [place] [phone] 01/13/2025 10:00 AM EDT Office Visit [facility] Hematology/BMT and Cellular Therapy Program [address] [place], [place] [address]r [place] [address] Isaura Wynn, RIM FIRE PRIMING OPERATOR 800 [facility] [address] [place] [phone] 01/13/2025 11:30 AM EDT Appointment [facility] Infusion [address] [place] [phone] 01/14/2025 2:00 PM EDT Appointment [facility]fusion [address] [place] [address] 01/15/2025 2:00 PM EDT Appointment [facility] [address] [place] [phone] 01/16/2025 2:00 PM EDT Appointment [facility] Infusion [address] [place] [address] 01/17/2025 2:00 PM EDT Appointment [facility] Infusion [address] [place] [address] 01/18/2025 2:00 PM EDT Appointment [facility] Infusion [address] [place] [address] 01/19/2025 2:00 PM EDT Appointment [facility] Infusion [address] [place] [address] 03/10/2025 11:20 AM EDT Office Visit [facility] Head, Neck & Respiratory 800 [facility], 2nd [place] [address] Elsa Razo, RIM FIRE PRIMING OPERATOR [address] [place] [phone] documented as of this encounter Results * Transfuse RBC, Irradiated (12/17/2024 11:30 AM EDT) Kayli CHIU BLOOD TRANSFUSION ORDERA BLES [...] dose, In 50 mL NSIndications:Myelodysplasia (myelodysplastic syndrome) ([facility]/HCC) New Bag 12/17/2024 9:23 AM EDT 150 mg 540 mL/hr ondansetron ODT (Zofran-ODT) disintegrating tablet 16 mg 16 mg, Oral, Once, 1 dose, On Sun12/17/24 at 0915, RoutineIndications:Myelodyspla haim (myelodysplastic syndrome) ([facility]) Given 12/17/2024 8:54 AM EDT 16 mg [...] documented as of this encounter Care Teams Congressional Assistant Relationship Specialty Start Date End Date Zhao Harris MD [address] [place] [address] PCP - General 12/03/20 documented as of this encounter
--- OUTSIDE RECORDS SUMMARY | 2024-12-18 08:30 | XMS_ITS | Encounter Summary ---
Author Organization [facility] Address [address] [place] [address] Care Team Providers Care Revenue Cycle Consultant Name Role Phone Zhao Harris MD Primary Care Provider + [phone] Reason for Visit * Episode Based Medications (Routine) - Authorized Specialty Diagnoses / Procedures Referred By Justice mcgee Referred To Contact Diagnoses Myelodysplasia (myelodysplastic syndrome) (CMS/HCC) Procedures Azacitidine Daily x 7 / Venetoclax Every 28 Days Virgen Vargas MD 800 [facility] [address] [address] Phone: tel: fax: Virgen Vargas MD [address] [address] Phone: tel: fax: Referral ID Status Reason Start Date Expiration Date V isits Requested Visits Authorized [id number] Authorized 10/20/2024 04/21/2026 1 91 Encounter Details Date Type Department Care Team (Latest Contact Info) Description 12/18/2024 8:30 AM EDT - 12/18/2024 9:45 AM EDT Hospital Encounter [facility] Infusion 800 [place] [phone] Myelodysplasia (myelodysplastic syndrome) (CMS/HCC) (Primary Dx); Thrombocytopenia [...] drink first t manav in the morning (EYE-JEEP MECHANIC) to steady your nerves or to [...] 5 MG tabletIndications :Coronary artery disease involving [place] heart with angina pectoris, unspecified vessel or lesion type (CMS/HCC),Hyperte nsion, unspecified type Take 1 tablet (5 mg) by mouth daily. 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 pectoris, unspecified vessel or [...] Description 01/06/2025 8:30 AM EDT Clinical Support [facility] Hematology/BMT and Cellular Therapy Program [address] [place] [address] [place] [address] 01/06/2025 9:00 AM EDT Procedure Visit [facility] Hematology/BMT and Cellular Therapy Program [address] [phone] Kierra Novak, MEDICAL MICROBIOLOGIST 800 [facility] [address] [place] [phone] 01/13/2025 9:30 AM EDT Clinical Support [facility] Hematology/BMT and Cellular Therapy Program [address] [phone] 01/13/2025 10:00 AM EDT Office Visit [facility] Hematology/BMT and Cellular Therapy Program [address] [phone] Isaura Wynn, MEDICAL MICROBIOLOGIST 800 [facility] [address] [place] [phone] 01/13/2025 11:30 AM EDT Appointment [facility] Infusion [address] [place] [address] 01/14/2025 2:00 PM EDT Appointment [facility] [address] [place] [address] 01/15/2025 2:00 PM EDT Appointment [facility] [address] [place] [address] 01/16/2025 2:00 PM EDT Appointment [facility] [address] [place] [address] 01/17/2025 2:00 PM EDT Appointment [facility]fusion [address] [place] [address] 01/18/2025 2:00 PM EDT Appointment [facility]fusion [address] [place] [address] 01/19/2025 2:00 PM EDT Appointment [facility] Infusion [address] [place] [address] 03/10/2025 11:20 AM EDT Office Visit [facility] Head, Neck & Respiratory 800 [facility], [address]nd [place] [address] Elsa Razo, MEDICAL MICROBIOLOGIST [address] [place] [address] documented as of this encounter [...] LAB HEMATOLOGY METHOD 12/18/2024 11:06 AM EDT [facility] Blood Blood sample taken from central line / Unknown Venipuncture / Unknown 12/18/2024 10:55 AM EDT 12/18/2024 11:03 AM EDT us Virgen Vargas MD LAB BLOOD ORDERABLES Final Re sult [facility] [address] [place] [address] * Transfuse platelets (12/18/2024 10:52 AM EDT) Kayli CHIU BLOOD TRANSFUSION ORDERA BLES Final Result * Transfuse platelets: 1 Units (12/18/2024 10:52 AM EDT) Kayli CHIU BLOOD TRANSFUSION ORDERA BLES Final Result * Prepare Leukocyte Reduced Platelets: 1 Units (12/18/2024 9:45 AM EDT) Pathologist [facility] Product Code [id number] BLOO D BANK Dispense Status Transfused BLOOD BANK Blood Expiration Date [id number] BLOOD BANK Unit Number [id number] B LOOD BANK Product Blood Type 6200 BLOOD BANK Blood Type A+ BLOOD BANK Blood Venous blood specimen / Unknown Kayli CHIU BLOOD BANK PRODUCT ORDER VIKAS Final Result Performing Organization Address City/State/[facility] Co de Phone Number BLOOD BANK [address] [place] [address] * (ABNORMAL) Comprehensive Metabolic Panel, Plasma (12/18/2024 9:14 AM EDT) Glucose, Plasma 108(H) 74 - 99 mg/dL 12/18/2024 9:51 AM EDT [facility] BUN, Plasma 10 8 - 23 mg/dL 12/18/2024 9:51 AM EDT [facility] Creatinine, Plasma 0.80 0.70 - 1.20 mg/dL 12/18/2024 9:51 AM EDT [facility] BUN/Creatinine Ratio 13 12/18/2024 9:51 AM EDT [facility] Sodium, Plasma 139 136 - 145 mmol/L 12/18/2024 9:51 AM EDT [facility] Potassium, Plasma 4.4 3.6 - 4.9 mmol/L 12/18/2024 9:51 AM EDT [facility] Chloride, Plasma 108(H) 97 - 107 mmol/L 12/18/2024 9:51 AM EDT [facility] CO2, Plasma 22 22 - 29 mmol/L 12/18/2024 9:51 AM EDT [facility] Anion Gap 9 6 - 16 mmol/L 12/18/2024 9:51 AM EDT [facility] Total Calcium, Plasma 8.8(L) 8.9 - 10.2 mg/dL 12/18/2024 9:51 AM EDT [facility] Total Protein 6.8 6.3 - 7.9 g/dL 12/18/2024 9:51 AM EDT [facility] Albumin, Plasma 3.9 3.5 - 5.2 g/dL 12/18/2024 9:51 AM EDT [facility] AST, Plasma 16 10 - 50 U/L 12/18/2024 9:51 AM EDT [facility] ALT, Plasma 16 10 - 50 U/L 12/18/2024 9:51 AM EDT [facility] Alkaline Phosphatase, Plasma 83 40 - 115 U/L 12/18/2024 9:51 AM EDT [facility] Total Bilirubin, Plasma 0.6 0.2 - 1.1 mg/dL 12/18/2024 9:51 AM EDT [facility] eGFRcr 95.8 mL/min/1.7 3m*2 12/18/2024 9:51 AM EDT [facility] Comment:Reported eGFRcr in m L/min/1.73m2 is based the CKD-EPI 2020 equation that does not use a race coefficient. Blood Blood sample taken from central line / Unknown Venipuncture / Unknown 12/18/2024 9:14 AM EDT 12/18/2024 9:20 AM EDT us Virgen Vargas MD LAB BLOOD ORDERABLES Final Re sult [facility] [address] [place] [address] * (ABNORMAL) CBC and differential (12/18/2024 9:14 AM EDT) WBC Count 0.51(LL) 3.70 - 10.30 10*3/uL LAB HEMATOLOGY METHOD 12/18/2024 10:49 AM EDT [facility] RBC Count 2.50(L) 4.60 - 6.10 10*6/uL LAB HEMATOLOGY METHOD 12/18/2024 10:49 AM EDT [facility] HGB 8.1(L) 13.7 - 17.5 g/dL LAB HEMATOLOGY METHOD 12/18/2024 10:49 AM EDT [facility] HCT 21.9(L) 40.0 - 51.0 % LAB HEMATOLOGY METHOD 12/18/2024 10:49 AM EDT [facility] Platelet Count 6(LL) 155 - 369 10*3/uL LAB HEMATOLOGY METHOD 12/18/2024 10:49 AM EDT [facility] MCV 88 79 - 98 fL LAB HEMATOLOGY METHOD 12/18/2024 10:49 AM EDT [facility] MCH 32.4(H) 26.0 - 32.0 pg LAB HEMATOLOGY METHOD 12/18/2024 10:49 AM EDT [facility] MCHC 37.0(H) 30.7 - 35.5 g/dL LAB HEMATOLOGY METHOD 12/18/2024 10:49 AM EDT [facility] RDW 16.7(H) 11.5 - 14.5 % LAB HEMATOLOGY METHOD 12/18/2024 10:49 AM EDT [facility] MPV LAB HEMATOLOGY METHOD 12/18/2024 10:49 AM EDT [facility] Comment:Not Measured nRBC 0.0 <=0.0 per 100 WBCs LAB HEMATOLOGY METHOD 12/18/2024 10:49 AM EDT [facility] Differential Type Automated LAB HEMATOLOGY METHOD 12/18/2024 10:49 AM EDT [facility] Neutrophils % 6 % LAB HEMATOLOGY METHOD 12/18/2024 10:49 AM EDT [facility] Lymphocytes % 90 % LAB HEMATOLOGY METHOD 12/18/2024 10:49 AM EDT [facility] Monocytes % 4 % LAB HEMATOLOGY METHOD 12/18/2024 10:49 AM EDT [facility] Eosinophils % 0 % LAB HEMATOLOGY METHOD 12/18/2024 10:49 AM EDT [facility] Basophils % 0 % LAB HEMATOLOGY METHOD 12/18/2024 10:49 AM EDT [facility] Immature Granulocytes % 0 % LAB HEMATOLOGY METHOD 12/18/2024 10:49 AM EDT [facility] Neutrophils Absolute 0.03(LL) 1.60 - 6.10 10*3/uL LAB HEMATOLOGY METHOD 12/18/2024 10:49 AM EDT [facility] Lymphocytes Absolute 0.46(L) 1.20 - 3.90 10*3/uL LAB HEMATOLOGY METHOD 12/18/2024 10:49 AM EDT [facility] Monocytes Absolute 0.02(L) 0.30 - 0.90 10*3/uL LAB HEMATOLOGY METHOD 12/18/2024 10:49 AM EDT [facility] Eosinophils Absolute 0.00 0.00 - 0.50 10*3/uL LAB HEMATOLOGY METHOD 12/18/2024 10:49 AM EDT [facility] Basophils Absolute 0.00 0.00 - 0.10 10*3/uL LAB HEMATOLOGY METHOD 12/18/2024 10:49 AM EDT [facility] Immature Granulocytes Absolute 0.00 0.00 - 0.06 10*3/uL LAB HEMATOLOGY METHOD 12/18/2024 10:49 AM EDT [facility] Blood Blood sample taken from central line / Unknown Venipuncture / Unknown 12/18/2024 9:14 AM EDT 12/18/2024 9:20 AM EDT Narrative [facility] - 12/18/2024 10:49 AM EDT Therapeutic decision making should be based on absolute values, rather than percentages. us Christina Ramos MD LAB BLOOD ORDERABLES Final Resul t [facility] [address] [place] [address] * Exception to Standard Practice, Pathologist Interpretation [...] ORDERAB LES Final Result BLOOD BANK [address] documented in this encounter Visit Diagnoses [...] documented as of this encounter Care Teams Revenue Cycle Consultant Relationship Specialty Start Date End Date Zhao Harris MD [address] [place] [address] PCP - General 12/03/20 documented as of this encounter
--- OUTSIDE RECORDS SUMMARY | 2024-12-18 09:46 | XMS_ITS | Encounter Summary ---
Author Organization Healthcare Address [address] [place] [address] Care Team Providers Care Count Team Member Name Role Phone Zhao Harris MD Primary Care Provider [phone] Encounter Details Date Type Department Care Team (Latest Contact Info) Description 12/18/2024 9:46 AM EDT - 12/18/2024 11:59 PM EDT Hospital Encounter [facility] [address] [place] [address] Myelodysplasia (myelodysplastic syndrome) (CMS/HCC) (Primary Dx) Discharge [...] drink first t manav in the morning (EYE-SENSITOMETRIST) to steady your nerves or to get [...] 5 MG tabletIndications :Coronary artery disease involving [place] heart with angina pectoris, unspecified vessel or lesion type (CMS/HCC),Hyperte nsion, unspecified type Take 1 tablet (5 mg) by mouth daily. 90 tablet 3 09/11/2024 HYDROcodone-aceta minophen ([place]) 5-325 MG tablet Take 1 tablet by [...] MG SL tabletIndications :Coronary artery disease involving [place] heart with angina pectoris, unspecified vessel or [...] CC Hematology/BMT and Cellular Therapy Program [address] [phone] 01/06/2025 9:00 AM EDT Procedure Visit [facility] Hematology/BMT and Cellular Therapy Program [address] [phone] Kierra Novak, MACHINE SETTER SHEET METAL 800 [facility] [address] [place] [phone] 01/13/2025 9:30 AM EDT Clinical Support [facility] Hematology/BMT and Cellular Therapy Program [address] [phone] 01/13/2025 10:00 AM EDT Office Visit [facility] Hematology/BMT and Cellular Therapy Program [address] [phone] Isaura Wynn, MACHINE SETTER SHEET METAL 800 [facility] [address] [place] [phone] 01/13/2025 11:30 AM EDT Appointment [facility] 800 [place] [phone] 01/14/2025 2:00 PM EDT Appointment [facility] 800 [place] [phone] 01/15/2025 2:00 PM EDT Appointment [facility] 800 [place] [address] 01/16/2025 2:00 PM EDT Appointment [facility] 800 [place] [phone] 01/17/2025 2:00 PM EDT Appointment [facility] 800 [place] [address] 01/18/2025 2:00 PM EDT Appointment [facility] 800 [place] [phone] 01/19/2025 2:00 PM EDT Appointment [facility] 800 [place] [address] 03/10/2025 11:20 AM EDT Office Visit Pav CC Head, Neck & Respiratory 800 [facility], 2nd [place] [address] Elsa Razo, MACHINE SETTER SHEET METAL 800 [place] [address] documented as of this encounter Visit Diagnoses [...] documented as of this encounter Care Teams Count Team Member Relationship Specialty Start Date End Date Zhao Harris MD [address] [address] PCP - General 12/03/20 documented as of this encounter
--- OUTSIDE RECORDS SUMMARY | 2024-12-19 08:30 | XMS_ITS | Encounter Summary ---
Author Organization [facility] Address [address] [place] [address] Care Team Providers Care Supervisor Aircraft Maintenance Name Role Phone Zhao Harris MD Primary Care Provider + [phone] Reason for Visit * Episode Based Medications (Routine) - Authorized Specialty Diagnoses / Procedures Referred By Justice mcgee Referred To Contact Diagnoses Myelodysplasia (myelodysplastic syndrome) (CMS/HCC) Procedures Azacitidine Daily x 7 / Venetoclax Every 28 Days Virgen Vargas MD [address] [address] Phone: tel: fax: Virgen Vargas MD [address] [address] Phone: tel: fax: Referral ID Status Reason Start Date Expiration Date V isits Requested Visits Authorized [id number] Authorized 10/20/2024 04/21/2026 1 91 Encounter Details Date Type Department Care Team (Latest Contact Info) Description 12/19/2024 8:30 AM EDT - 12/19/2024 11:59 PM EDT Hospital Encounter [facility] Infusion Clinic 2 [address] [place] [phone] Myelodysplasia (myelodysplastic syndrome) (CMS/HCC) (Primary Dx) Discharge [...] drink first t manav in the morning (EYE-SWIMMING POOL MAINTENANCE) to steady your nerves or to [...] 5 MG tabletIndications :Coronary artery disease involving [place] heart with angina pectoris, unspecified vessel or lesion type (CMS/HCC),Hyperte nsion, unspecified type Take 1 tablet (5 mg) by mouth daily. 90 tablet 3 09/11/2024 HYDROcodone-aceta minophen ([place]) 5-325 MG tablet Take 1 tablet by [...] MG SL tabletIndications :Coronary artery disease involving [place] heart with angina pectoris, unspecified vessel or [...] Upcoming Encounters Date Type Department Care Team ([facility] Contact Info) Description 01/06/2025 8:30 AM EDT Clinical Support [facility] Hematology/BMT and Cellular Therapy Program [address] [address] 01/06/2025 9:00 AM EDT Procedure Visit [facility] Hematology/BMT and Cellular Therapy Program [address] [address] Kierra Novak, BREAKER UNIT ASSEMBLER 800 [facility] [address] [place] [phone] 01/13/2025 9:30 AM EDT Clinical Support [facility] Hematology/BMT and Cellular Therapy Program [address] [address] 01/13/2025 10:00 AM EDT Office Visit [facility] Hematology/BMT and Cellular Therapy Program [address] [place] [phone] Isaura Wynn, BREAKER UNIT ASSEMBLER 800 [facility] [address] [place] [address] 01/13/2025 11:30 AM EDT Appointment [facility] Infusion [address] [place] [address] 01/14/2025 2:00 PM EDT Appointment [facility] Infusion [address] [place] [address] 01/15/2025 2:00 PM EDT Appointment [facility] Infusion [address] [place] [address] 01/16/2025 2:00 PM EDT Appointment [facility] Infusion [address] [place] [address] 01/17/2025 2:00 PM EDT Appointment [facility] Infusion [address] [place] [address] 01/18/2025 2:00 PM EDT Appointment [facility] Infusion [address] [place] [address] 01/19/2025 2:00 PM EDT Appointment [facility] Infusion [address] [place] [address] 03/10/2025 11:20 AM EDT Office Visit [facility] CC Head, Neck & Respiratory 800 [facility], [address]nd [place] [phone] Elsa Razo, BREAKER UNIT ASSEMBLER [address] [place] [address] documented as of this encounter Visit Diagnoses [...] Sun12/19/24 at 0900, RoutineIndications:Myelodyspla haim (myelodysplastic syndrome) ([facility]) Given 12/19/2024 8:41 AM EDT 16 mg [...] as of this encounter Care Teams Supervisor Aircraft Maintenance Relationship Specialty Start Date End Date Zhao Harris MD [address] [place] [address] PCP - General 12/03/20 documented as of this encounter
--- OUTSIDE RECORDS SUMMARY | 2024-12-20 08:08 | XMS_ITS | Encounter Summary ---
Author Organization [facility] Address [address] [place] [address] Care Team Providers Care Meat Seafood Associate Name Role Phone Zhao Harris MD Primary Care Provider + [phone] Reason for Visit * Episode Based Medications (Routine) - Authorized Specialty Diagnoses / Procedures Referred By Justice mcgee Referred To Contact Diagnoses Myelodysplasia (myelodysplastic syndrome) (CMS/HCC) Procedures Azacitidine Daily x 7 / Venetoclax Every 28 Days Virgen Vargas MD [address] [place] [phone] Phone: tel: fax: Virgen Vargas MD [address] [phone] Phone: tel: fax: Referral ID Status Reason Start Date Expiration Date V isits Requested Visits Authorized [id number] Authorized 10/20/2024 04/21/2026 1 91 Encounter Details Date Type Department Care Team (Latest Contact Info) Description 12/20/2024 8:08 AM EDT - 12/20/2024 11:59 PM EDT Hospital Encounter [facility] Infusion Clinic 1 [address] [place] [phone] Myelodysplasia (myelodysplastic syndrome) (CMS/HCC) (Primary Dx); Thrombocytopenia [...] drink first t manav in the morning (EYE-CAM MILLING MACHINE OPERATOR) to steady your nerves or [...] Upcoming Encounters Date Type Department Care Team ([facility] st Contact Info) Description 01/06/2025 8:30 AM EDT Clinical Support [facility] Hematology/BMT and Cellular Therapy Program [address] [phone] 01/06/2025 9:00 AM EDT Procedure Visit [facility] Hematology/BMT and Cellular Therapy Program [address] [phone] Kierra Novak, CHALK MACHINE OPERATOR 800 [facility] [address] [place] [phone] 01/13/2025 9:30 AM EDT Clinical Support [facility] CC Hematology/BMT and Cellular Therapy Program 750 [facility] [place] [address] 01/13/2025 10:00 AM EDT Office Visit [facility] CC Hematology/BMT and Cellular Therapy Program 750 [facility] [place] [address] Isaura Wynn, CHALK MACHINE OPERATOR 800 [facility] [address] [place] [phone] 01/13/2025 11:30 AM EDT Appointment [facility] H Infusion 800 [place] [address] 01/14/2025 2:00 PM EDT Appointment [facility] H Infusion [address] [place] [address] 01/15/2025 2:00 PM EDT Appointment [facility] H Infusion 800 [place] [address] 01/16/2025 2:00 PM EDT Appointment [facility] H Infusion [address] [place] [address] 01/17/2025 2:00 PM EDT Appointment [facility] H Infusion [address] [place] [address] 01/18/2025 2:00 PM EDT Appointment [facility] H Infusion [address] [place] [address] 01/19/2025 2:00 PM EDT Appointment [facility] H Infusion [address] [place] [address] 03/10/2025 11:20 AM EDT Office Visit Pav CC Head, Neck & Respiratory 800 [facility], 2nd [place] [address] Elsa Razo, CHALK MACHINE OPERATOR 800 [place] [phone] documented as of this encounter Procedures Procedure [...] S Final Result Performing Organization Address City/State/[facility] Co de Phone Number BLOOD BANK [address] * Prepare Leukocyte Reduced RBC: 1 Units, Irradiated (12/20/2024 10:01 AM EDT) Product Code [id number] BLOO D BANK Dispense Status Transfused BLOOD BANK Blood Expiration Date [id number] BLOOD BANK Unit Number [id number] CH B LOOD BANK Product Blood Type 9500 BLOOD BANK Blood Type O- BLOOD BANK Crossmatch Compatible BLOOD BANK Other us Kayli CHIU BLOOD BANK PRODUCT ORDER VIKAS Final Result BLOOD BANK 800 [place] [address], * (ABNORMAL) CBC and differential (12/20/2024 9:00 AM EDT) WBC Count 0.59(LL) 3.70 - 10.30 10*3/uL LAB HEMATOLOGY METHOD 12/20/2024 10:25 AM EDT [facility] RBC Count 2.46(L) 4.60 - 6.10 10*6/uL LAB HEMATOLOGY METHOD 12/20/2024 10:25 AM EDT [facility] HGB 7.8(L) 13.7 - 17.5 g/dL LAB HEMATOLOGY METHOD 12/20/2024 10:25 AM EDT [facility] HCT 22.0(L) 40.0 - 51.0 % LAB HEMATOLOGY METHOD 12/20/2024 10:25 AM EDT [facility] Platelet Count 22(L) 155 - 369 10*3/uL LAB HEMATOLOGY METHOD 12/20/2024 10:25 AM EDT [facility] MCV 89 79 - 98 fL LAB HEMATOLOGY METHOD 12/20/2024 10:25 AM EDT [facility] MCH 31.7 26.0 - 32.0 pg LAB HEMATOLOGY METHOD 12/20/2024 10:25 AM EDT [facility] MCHC 35.5 30.7 - 35.5 g/dL LAB HEMATOLOGY METHOD 12/20/2024 10:25 AM EDT [facility] RDW 16.0(H) 11.5 - 14.5 % LAB HEMATOLOGY METHOD 12/20/2024 10:25 AM EDT [facility] MPV 11.3 8.8 - 12.5 fL LAB HEMATOLOGY METHOD 12/20/2024 10:25 AM EDT [facility] nRBC 0.0 <=0.0 per 100 WBCs LAB HEMATOLOGY METHOD 12/20/2024 10:25 AM EDT [facility] Differential Type Automated LAB HEMATOLOGY METHOD 12/20/2024 10:25 AM EDT [facility] Neutrophils % 5 % LAB HEMATOLOGY METHOD 12/20/2024 10:25 AM EDT [facility] Lymphocytes % 92 % LAB HEMATOLOGY METHOD 12/20/2024 10:25 AM EDT [facility] Monocytes % 3 % LAB HEMATOLOGY METHOD 12/20/2024 10:25 AM EDT [facility] Eosinophils % 0 % LAB HEMATOLOGY METHOD 12/20/2024 10:25 AM EDT [facility] Basophils % 0 % LAB HEMATOLOGY METHOD 12/20/2024 10:25 AM EDT [facility] Immature Granulocytes % 0 % LAB HEMATOLOGY METHOD 12/20/2024 10:25 AM EDT [facility] Neutrophils Absolute 0.03(LL) 1.60 - 6.10 10*3/uL LAB HEMATOLOGY METHOD 12/20/2024 10:25 AM EDT [facility] Lymphocytes Absolute 0.54(L) 1.20 - 3.90 10*3/uL LAB HEMATOLOGY METHOD 12/20/2024 10:25 AM EDT [facility] Monocytes Absolute 0.02(L) 0.30 - 0.90 10*3/uL LAB HEMATOLOGY METHOD 12/20/2024 10:25 AM EDT [facility] Eosinophils Absolute 0.00 0.00 - 0.50 10*3/uL LAB HEMATOLOGY METHOD 12/20/2024 10:25 AM EDT [facility] Basophils Absolute 0.00 0.00 - 0.10 10*3/uL LAB HEMATOLOGY METHOD 12/20/2024 10:25 AM EDT [facility] Immature Granulocytes Absolute 0.00 0.00 - 0.06 10*3/uL LAB HEMATOLOGY METHOD 12/20/2024 10:25 AM EDT [facility] Blood Blood sample taken from central line / Unknown (Central Line) Existing Catheter / Unknown 12/20/2024 9:00 AM EDT 12/20/2024 9:13 AM EDT Narrative [facility] - 12/20/2024 10:25 AM EDT Therapeutic decision making should be based on absolute values, rather than percentages. us Christina Ramos MD LAB BLOOD ORDERABLES Final Resul t [facility] [address] [place] [address] documented in this encounter Visit Diagnoses Diagnosis [...] documented as of this encounter Care Teams Meat Seafood Associate Relationship Specialty Start Date End Date Zhao Harris MD [address] [place] [address] PCP - General 12/03/20 documented as of this encounter
--- OUTSIDE RECORDS SUMMARY | 2024-12-21 08:30 | XMS_ITS | Encounter Summary ---
Author Organization [facility] Address [address] [place] [address] Care Team Providers Care Sales And Marketing Executive Name Role Phone Zhao Harris MD Primary Care Provider + [phone] Reason for Visit * Episode Based Medications (Routine) - Authorized Specialty Diagnoses / Procedures Referred By Justice mcgee Referred To Contact Diagnoses Myelodysplasia (myelodysplastic syndrome) (CMS/HCC) Procedures Azacitidine Daily x 7 / Venetoclax Every 28 Days Virgen Vargas MD [address] [address] Phone: tel: fax: Virgen Vargas MD [address] [address] Phone: tel: fax: Referral ID Status Reason Start Date Expiration Date V isits Requested Visits Authorized [id number] Authorized 10/20/2024 04/21/2026 1 91 Encounter Details Date Type Department Care Team (Latest Contact Info) Description 12/21/2024 8:30 AM EDT - 12/21/2024 11:59 PM EDT Hospital Encounter [facility] Infusion Clinic 1 [address] [place] [phone] Myelodysplasia (myelodysplastic syndrome) (CMS/HCC) (Primary Dx) Discharge [...] drink first t manav in the morning (EYE-BUS GREASER) to steady your nerves or to get [...] daily. 90 tablet 3 09/11/2024 HYDROcodone-aceta minophen ([place]) 5-325 MG tablet Take 1 tablet by [...] Encounters Date Type Department Care Team ([facility] Contact Info) Description 01/06/2025 8:30 AM EDT Clinical Support [facility] Hematology/BMT and Cellular Therapy Program [address] [place] [address] 01/06/2025 9:00 AM EDT Procedure Visit [facility] Hematology/BMT and Cellular Therapy Program [address] [address] Kierra Novak, SHEET METAL SUPERVISOR 800 [facility] [address] [place] [address] 01/13/2025 9:30 AM EDT Clinical Support [facility] Hematology/BMT and Cellular Therapy Program [address] [address] 01/13/2025 10:00 AM EDT Office Visit [facility] Hematology/BMT and Cellular Therapy Program [address] [phone] Isaura Wynn, SHEET METAL SUPERVISOR 800 [facility] [address] [place] [phone] 01/13/2025 11:30 AM EDT Appointment [facility] H Infusion 800 [place] [phone] 01/14/2025 2:00 PM EDT Appointment [facility] H Infusion [address] [place] [address] 01/15/2025 2:00 PM EDT Appointment [facility] H Infusion [address] [place] [address] 01/16/2025 2:00 PM EDT Appointment [facility] H Infusion [address] [place] [phone] 01/17/2025 2:00 PM EDT Appointment [facility] Infusion [address] [place] [phone] 01/18/2025 2:00 PM EDT Appointment [facility] Infusion [address] [place] [address] 01/19/2025 2:00 PM EDT Appointment [facility] Infusion [address] [place] [address] 03/10/2025 11:20 AM EDT Office Visit [facility] Head, Neck & Respiratory 800 [facility], 2nd [place] [phone] Elsa Razo, SHEET METAL SUPERVISOR 800 [place] [phone] documented as of this encounter Visit Diagnoses [...] of this encounter Care Teams Sales And Marketing Executive Relationship Specialty Start Date End Date Zhao Harris MD [address] [place] [address] PCP - General 12/03/20 documented as of this encounter
--- OUTSIDE RECORDS SUMMARY | 2024-12-22 08:24 | XMS_ITS | Encounter Summary ---
Author Organization [facility] Address [address] [place] [address] Care Team Providers Care Fire Equipment Operator Name Role Phone Zhao Harris MD Primary Care Provider + [phone] Reason for Visit * Episode Based Medications (Routine) - Authorized Specialty Diagnoses / Procedures Referred By Justice mcgee Referred To Contact Diagnoses Myelodysplasia (myelodysplastic syndrome) (CMS/HCC) Procedures Azacitidine Daily x 7 / Venetoclax Every 28 Days Virgen Vargas MD 800 [facility] [address] [address] Phone: tel: fax: Virgen Vargas MD [address] [address] Phone: tel: fax: Referral ID Status Reason Start Date Expiration Date V isits Requested Visits Authorized [id number] Authorized 10/20/2024 04/21/2026 1 91 Encounter Details Date Type Department Care Team (Latest Contact Info) Description 12/22/2024 8:24 AM EDT - 12/22/2024 9:57 AM EDT Hospital Encounter [facility] H Infusion [address] [place] [phone] Myelodysplasia (myelodysplastic syndrome) (CMS/HCC) (Primary Dx); Thrombocytopenia [...] drink first t manav in the morning (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, unspecified vessel or [...] ([facility] st Contact Info) Description 01/06/2025 8:30 AM EDT Clinical Support PAV Hematology/BMT and Cellular Therapy Program [address] [phone] 01/06/2025 9:00 AM EDT Procedure Visit PAV Hematology/BMT and Cellular Therapy Program [address] [phone] Kierra Novak, BARREL BURNER 800 [facility] [address] [place] [phone] 01/13/2025 9:30 AM EDT Clinical Support PAV CC Hematology/BMT and Cellular Therapy Program 750 [facility] [place] [address] 01/13/2025 10:00 AM EDT Office Visit P[facility] CC Hematology/BMT and Cellular Therapy Program 750 [facility], [address] [place] [phone] Isaura Wynn, BARREL BURNER 800 [facility] [address] [place] [phone] 01/13/2025 11:30 AM EDT Appointment P[facility] H Infusion [address] [place] [address] 01/14/2025 2:00 PM EDT Appointment [facility] H Infusion [address] [place] [address] 01/15/2025 2:00 PM EDT Appointment P[facility] H Infusion [address] [place] [address] 01/16/2025 2:00 PM EDT Appointment [facility] H Infusion [address] [place] [address] 01/17/2025 2:00 PM EDT Appointment P[facility] H Infusion [address] [place] [address] 01/18/2025 2:00 PM EDT Appointment [facility] H Infusion [address] [place] [address] 01/19/2025 2:00 PM EDT Appointment PAV H Infusion [address] [place] [address] 03/10/2025 11:20 AM EDT Office Visit Pav CC Head, Neck & Respiratory 800 [facility], [address] [place] [address] Elsa Razo, BARREL BURNER [address] [place] [phone] documented as of this encounter Procedures Procedure [...] * Transfuse platelets (12/22/2024 12:04 PM EDT) us Kayli CHIU BLOOD TRANSFUSION ORDERA BLES Final Result * Transfuse platelets: 1 Units (12/22/2024 12:04 PM EDT) us Kayli CHIU BLOOD TRANSFUSION ORDERA BLES Final Result * (ABNORMAL) Platelet count (12/22/2024 10:57 AM EDT) [facility] Platelet Count 36(L) 155 - 369 10*3/uL LAB HEMATOLOGY METHOD 12/22/2024 11:14 AM EDT [facility] Blood Venous blood specimen / Unknown Venipuncture / Unknown 12/22/2024 10:57 AM EDT 12/22/2024 11:04 AM EDT Virgen Vargas MD LAB BLOOD ORDERABLES Final Re sult [facility] [address] [place] [address] * Prepare Leukocyte Reduced Platelets: 1 Units (12/22/2024 9:44 AM EDT) [facility] Product Code [id number] CH BLOO D BANK Dispense Status Transfused BLOOD BANK Blood Expiration Date [id number] BLOOD BANK Unit Number [id number] CH B LOOD BANK Product Blood Type 0600 BLOOD BANK Blood Type A- CH BLOOD BANK Blood Venous blood specimen / Unknown us Kayli CHIU BLOOD BANK PRODUCT ORDER VIKAS Final Result BLOOD BANK [address] [place] [address], * (ABNORMAL) CBC and Differential (12/22/2024 8:53 AM EDT) WBC Count 0.50(LL) 3.70 - 10.30 10*3/uL LAB HEMATOLOGY METHOD 12/22/2024 11:33 AM EDT [facility] RBC Count 2.90(L) 4.60 - 6.10 10*6/uL LAB HEMATOLOGY METHOD 12/22/2024 11:33 AM EDT [facility] HGB 8.9(L) 13.7 - 17.5 g/dL LAB HEMATOLOGY METHOD 12/22/2024 11:33 AM EDT [facility] HCT 25.0(L) 40.0 - 51.0 % LAB HEMATOLOGY METHOD 12/22/2024 11:33 AM EDT [facility] Platelet Count 5(LL) 155 - 369 10*3/uL LAB HEMATOLOGY METHOD 12/22/2024 11:33 AM EDT [facility] MCV 86 79 - 98 fL LAB HEMATOLOGY METHOD 12/22/2024 11:33 AM EDT [facility] MCH 30.7 26.0 - 32.0 pg LAB HEMATOLOGY METHOD 12/22/2024 11:33 AM EDT [facility] MCHC 35.6(H) 30.7 - 35.5 g/dL LAB HEMATOLOGY METHOD 12/22/2024 11:33 AM EDT [facility] RDW 15.6(H) 11.5 - 14.5 % LAB HEMATOLOGY METHOD 12/22/2024 11:33 AM EDT [facility] MPV LAB HEMATOLOGY METHOD 12/22/2024 11:33 AM EDT [facility] Comment:Not Measured nRBC 0.0 <=0.0 per 100 WBCs LAB HEMATOLOGY METHOD 12/22/2024 11:33 AM EDT [facility] Differential Type Automated LAB HEMATOLOGY METHOD 12/22/2024 11:33 AM EDT [facility] Neutrophils % 12 % LAB HEMATOLOGY METHOD 12/22/2024 11:33 AM EDT [facility] Lymphocytes % 86 % LAB HEMATOLOGY METHOD 12/22/2024 11:33 AM EDT [facility] Monocytes % 2 % LAB HEMATOLOGY METHOD 12/22/2024 11:33 AM EDT [facility] Eosinophils % 0 % LAB HEMATOLOGY METHOD 12/22/2024 11:33 AM EDT [facility] Basophils % 0 % LAB HEMATOLOGY METHOD 12/22/2024 11:33 AM EDT [facility] Immature Granulocytes % 0 % LAB HEMATOLOGY METHOD 12/22/2024 11:33 AM EDT [facility] Neutrophils Absolute 0.06(LL) 1.60 - 6.10 10*3/uL LAB HEMATOLOGY METHOD 12/22/2024 11:33 AM EDT [facility] Lymphocytes Absolute 0.43(L) 1.20 - 3.90 10*3/uL LAB HEMATOLOGY METHOD 12/22/2024 11:33 AM EDT [facility] Monocytes Absolute 0.01(L) 0.30 - 0.90 10*3/uL LAB HEMATOLOGY METHOD 12/22/2024 11:33 AM EDT [facility] Eosinophils Absolute 0.00 0.00 - 0.50 10*3/uL LAB HEMATOLOGY METHOD 12/22/2024 11:33 AM EDT [facility] Basophils Absolute 0.00 0.00 - 0.10 10*3/uL LAB HEMATOLOGY METHOD 12/22/2024 11:33 AM EDT [facility] Immature Granulocytes Absolute 0.00 0.00 - 0.06 10*3/uL LAB HEMATOLOGY METHOD 12/22/2024 11:33 AM EDT [facility] Blood Venous blood specimen / Unknown Venipuncture / Unknown 12/22/2024 8:53 AM EDT 12/22/2024 8:59 AM EDT [facility] - 12/22/2024 11:33 AM EDT Therapeutic decision making should be based on absolute values, rather than percentages. us Virgen Vargas MD LAB BLOOD ORDERABLES Final Re sult [facility] [address] [place] [address] * (ABNORMAL) Comprehensive Metabolic Panel, Plasma (12/22/2024 8:53 AM EDT) Glucose, Plasma 107(H) 74 - 99 mg/dL 12/22/2024 9:29 AM EDT [facility] BUN, Plasma 14 8 - 23 mg/dL 12/22/2024 9:29 AM EDT [facility] Creatinine, Plasma 0.93 0.70 - 1.20 mg/dL 12/22/2024 9:29 AM EDT [facility] BUN/Creatinine Ratio 15 12/22/2024 9:29 AM EDT [facility] Sodium, Plasma 136 136 - 145 mmol/L 12/22/2024 9:29 AM EDT [facility] Potassium, Plasma 4.3 3.6 - 4.9 mmol/L 12/22/2024 9:29 AM EDT [facility] Chloride, Plasma 106 97 - 107 mmol/L 12/22/2024 9:29 AM EDT [facility] CO2, Plasma 22 22 - 29 mmol/L 12/22/2024 9:29 AM EDT [facility] Anion Gap 8 6 - 16 mmol/L 12/22/2024 9:29 AM EDT [facility] Total Calcium, Plasma 9.1 8.9 - 10.2 mg/dL 12/22/2024 9:29 AM EDT [facility] Total Protein 7.0 6.3 - 7.9 g/dL 12/22/2024 9:29 AM EDT [facility] Albumin, Plasma 3.9 3.5 - 5.2 g/dL 12/22/2024 9:29 AM EDT [facility] AST, Plasma 16 10 - 50 U/L 12/22/2024 9:29 AM EDT [facility] ALT, Plasma 12 10 - 50 U/L 12/22/2024 9:29 AM EDT [facility] Alkaline Phosphatase, Plasma 83 40 - 115 U/L 12/22/2024 9:29 AM EDT [facility] Total Bilirubin, Plasma 0.7 0.2 - 1.1 mg/dL 12/22/2024 9:29 AM EDT [facility] eGFRcr 88.9 mL/min/1.7 3m*2 12/22/2024 9:29 AM EDT [facility] Comment:Reported eGFRcr in m L/min/1.73m2 is based the CKD-EPI 2020 equation that does not use a race coefficient. Blood Venous blood specimen / Unknown Venipuncture / Unknown 12/22/2024 8:53 AM EDT 12/22/2024 8:59 AM EDT us Virgen Vargas MD LAB BLOOD ORDERABLES Final Re sult [facility] [address] [place] [address] documented in this encounter Visit Diagnoses Diagnosis [...] 16 mg, Oral, Once, 1 dose, On 6/2/25 at 0845, RoutineIndications:Myelodyspla haim (myelodysplastic syndrome) (CMS/HCC) [...] documented as of this encounter Care Teams Fire Equipment Operator Relationship Specialty Start Date End Date Zhao Harris MD [address] [place] [address] PCP - General 12/03/20 documented as of this encounter
--- OUTSIDE RECORDS SUMMARY | 2024-12-22 09:58 | XMS_ITS | Encounter Summary ---
Author Organization Healthcare Address [address] [place] [address] Care Team Providers Care Electron Beam Photo Mask Technician Name Role Phone Zhao Harris MD Primary Care Provider [phone] Encounter Details Date Type Department Care Team (Latest Contact Info) Description 12/22/2024 9:58 AM EDT - 12/22/2024 11:59 PM EDT Hospital Encounter [facility] [address] [place] [address] Myelodysplasia (myelodysplastic syndrome) (CMS/HCC) (Primary Dx) Discharge [...] drink first t manav in the morning (EYE-SUPERVISOR FINISHING DEPARTMENT) to steady your nerves or to get [...] 5 MG tabletIndications :Coronary artery disease involving big lagoon heart with angina pectoris, unspecified vessel or lesion type (CMS/HCC),Hyperte nsion, unspecified type Take 1 tablet (5 mg) by mouth daily. 90 tablet 3 09/11/2024 HYDROcodone-aceta minophen ([place]) 5-325 MG tablet Take 1 tablet by [...] MG SL tabletIndications :Coronary artery disease involving big lagoon heart with angina pectoris, unspecified vessel [...] Hematology/BMT and Cellular Therapy Program [address] [address] 01/06/2025 9:00 AM EDT Procedure Visit [facility] Hematology/BMT and Cellular Therapy Program [address] [phone] Kierra Novak, MED SPECIALIST 800 [facility] [address] [place] [phone] 01/13/2025 9:30 AM EDT Clinical Support [facility] CC Hematology/BMT and Cellular Therapy Program [address] [phone] 01/13/2025 10:00 AM EDT Office Visit [facility] CC Hematology/BMT and Cellular Therapy Program [address] [phone] Isaura Wynn, MED SPECIALIST 800 [facility] [address] [place] [phone] 01/13/2025 11:30 AM EDT Appointment [facility] 800 [place] [address] 01/14/2025 2:00 PM EDT Appointment [facility] 800 [place] [address] 01/15/2025 2:00 PM EDT Appointment [facility] [address] [place] [address] 01/16/2025 2:00 PM EDT Appointment [facility] 800 [place] [address] 01/17/2025 2:00 PM EDT Appointment [facility] 800 [place] [address] 01/18/2025 2:00 PM EDT Appointment [facility] 800 [place] [address] 01/19/2025 2:00 PM EDT Appointment [facility] 800 [place] [address] 03/10/2025 11:20 AM EDT Office Visit Pav CC Head, Neck & Respiratory 800 [facility], 2nd [place] [phone] Elsa Razo, MED SPECIALIST 800 [place] [address] documented as of this encounter Visit Diagnoses [...] documented as of this encounter Care Teams Electron Beam Photo Mask Technician Relationship Specialty Start Date End Date Zhao Harris MD 1210 [facility] [address], [place] [address] PCP - General 12/03/20 documented as of this encounter
[2024-12-30] VITALS (13 sets, daily range): BP systolic 103–117; BP diastolic 57–74; PULSE 64–74; RESP 14–16; TEMP 36.5–36.8; O2SAT 97–99; BMI 31.3
--- OUTSIDE RECORDS SUMMARY | 2024-12-30 08:31 | XMS_ITS | Encounter Summary ---
Author Organization [facility] Address [address] [place] [address] Care Team Providers Care Converter Supervisor Name Role Phone Zhao Harris MD Primary Care Provider [phone] Encounter Details Date Type Department Care Team (Latest Contact Info) Description 12/21/2024 Travel Social History Tobacco Use Types Packs/Day Years [...] drink first t manav in the morning (EYE-CORSET FITTER) to steady your nerves or to get [...] Upcoming Encounters Date Type Department Care Team ([facility] st Contact Info) Description 01/06/2025 8:30 AM EDT Clinical Support [facility] Hematology/BMT and Cellular Therapy Program [address] [phone] 01/06/2025 9:00 AM EDT Procedure Visit [facility] Hematology/BMT and Cellular Therapy Program [address] [address] Kierra Novak, MOSAIC TILE MAKER 800 [facility] [address] [place] [phone] 01/13/2025 9:30 AM EDT Clinical Support [facility] Hematology/BMT and Cellular Therapy Program [address] [address] 01/13/2025 10:00 AM EDT Office Visit [facility] Hematology/BMT and Cellular Therapy Program [address] [phone] Isaura Wynn, MOSAIC TILE MAKER 800 [facility] [address] [place] [phone] 01/13/2025 11:30 AM EDT Appointment [facility] In[facility] 800 [place] [phone] 01/14/2025 2:00 PM EDT Appointment [facility] 800 [place] [phone] 01/15/2025 2:00 PM EDT Appointment [facility] 800 [place] [phone] 01/16/2025 2:00 PM EDT Appointment [facility] [address] [place] [phone] 01/17/2025 2:00 PM EDT Appointment [facility] 800 [place] [address] 01/18/2025 2:00 PM EDT Appointment [facility] [address] [place] [address] 01/19/2025 2:00 PM EDT Appointment [facility] 800 [place] [address] 03/10/2025 11:20 AM EDT Office Visit [facility] Head, Neck & Respiratory 800 [facility], 2nd [place] [address] Elsa Razo, MOSAIC TILE MAKER 800 [place] [address] documented as of this encounter Visit Diagnoses [...] documented as of this encounter Care Teams Converter Supervisor Relationship Specialty Start Date End Date Zhao Harris MD [address] [place] [address] [phone] PCP - General 12/03/20 documented as of this encounter
--- OUTSIDE RECORDS SUMMARY | 2024-12-30 08:31 | XMS_ITS | Encounter Summary ---
Author Organization [facility] Address [address] [place] [address] Care Team Providers Care Jigman Name Role Phone Zhao Harris MD Primary Care Provider [phone] Encounter Details Date Type Department Care Team ([facility] st Contact Info) Description 12/23/2024 Orders Only [facility] Hematology/BMT and Cellular Therapy Program [address] [place] [address] [place] [address] Adam Conway RN [facility] HEMAT[facility]INIC Myelodysplasia (myelodysplastic syndrome) (CMS/HCC) (Primary Dx) Social [...] drink first t manav in the morning (EYE-JAVA J2EE ARCHITECT) to steady your nerves or to [...] Upcoming Encounters Date Type Department Care Team ([facility] st Contact Info) Description 01/06/2025 8:30 AM EDT Clinical Support [facility] Hematology/BMT and Cellular Therapy Program [address] [place] [phone] 01/06/2025 9:00 AM EDT Procedure Visit [facility] Hematology/BMT and Cellular Therapy Program [address] [place] [phone] Kierra Novak, TILE SETTER SUPERVISOR 800 [facility] [address] [place] [phone] 01/13/2025 9:30 AM EDT Clinical Support [facility] Hematology/BMT and Cellular Therapy Program [address] [place] [phone] 01/13/2025 10:00 AM EDT Office Visit [facility] Hematology/BMT and Cellular Therapy Program [address] [place] [address] [phone] Isaura Wynn, TILE SETTER SUPERVISOR 800 [facility] [address] [place] [phone] 01/13/2025 11:30 AM EDT Appointment [facility] Infusion 800 [place] [phone] 01/14/2025 2:00 PM EDT Appointment [facility] Infusion 800 [place] [phone] 01/15/2025 2:00 PM EDT Appointment [facility] 800 [place] [address] 01/16/2025 2:00 PM EDT Appointment [facility] 800 [place] [address] 01/17/2025 2:00 PM EDT Appointment [facility] 800 [place] [address] 01/18/2025 2:00 PM EDT Appointment [facility] 800 [place] [address] 01/19/2025 2:00 PM EDT Appointment [facility] 800 [place] [address] 03/10/2025 11:20 AM EDT Office Visit [facility] Head, Neck & Respiratory 800 [facility], 2nd [place] [address] Elsa Razo, TILE SETTER SUPERVISOR 800 [place] [address] Scheduled Orders Name Type Priority Associated Diagnoses Orde r Schedule CBC and Differential Lab Routine Myelodysplasia (myelodysplastic syndrome) (CMS/HCC) Expected: 01/05/2025, Expires: 06/26/2026 documented as of this encounter Visit Diagnoses [...] documented as of this encounter Care Teams Jigman Relationship Specialty Start Date End Date Zhao Harris MD 1210 [facility] [address] [place] [address] PCP - General 12/03/20 documented as of this encounter
--- OUTSIDE RECORDS SUMMARY | 2024-12-30 08:31 | XMS_ITS | Encounter Summary ---
Author Organization [facility] Address [address] [place] [address] Care Team Providers Care Segmental Wall Installer Name Role Phone Zhao Harris MD Primary Care Provider [phone] Encounter Details Date Type Department Care Team (Latest Contact Info) Description 12/22/2024 Travel Social History Tobacco Use Types Packs/Day [...] drink first t manav in the morning (EYE-CORONER/MEDICAL EXAMINER) to steady your nerves or to get [...] Upcoming Encounters Date Type Department Care Team ([facility] st Contact Info) Description 01/06/2025 8:30 AM EDT Clinical Support [facility] Hematology/BMT and Cellular Therapy Program [address] [phone] 01/06/2025 9:00 AM EDT Procedure Visit [facility] Hematology/BMT and Cellular Therapy Program [address] [phone] Kierra Novak, WATER TEAM LEADER 800 [facility] [address] [place] [phone] 01/13/2025 9:30 AM EDT Clinical Support [facility] Hematology/BMT and Cellular Therapy Program [address] [address] 01/13/2025 10:00 AM EDT Office Visit [facility] Hematology/BMT and Cellular Therapy Program [address] [phone] Isaura Wynn, WATER TEAM LEADER 800 [facility] [address] [place] [phone] 01/13/2025 11:30 AM EDT Appointment [facility] Infusion 800 [place] [phone] 01/14/2025 2:00 PM EDT Appointment [facility] 800 [place] [phone] 01/15/2025 2:00 PM EDT Appointment [facility] [address] [place] [phone] 01/16/2025 2:00 PM EDT Appointment [facility] 800 [place] [phone] 01/17/2025 2:00 PM EDT Appointment [facility] 800 [place] [address] 01/18/2025 2:00 PM EDT Appointment [facility]fusion 800 [place] [address] 01/19/2025 2:00 PM EDT Appointment [facility]fusion 800 [place] [address] 03/10/2025 11:20 AM EDT Office Visit [facility] Head, Neck & Respiratory 800 [facility], 2nd [place] [address] Elsa Razo, WATER TEAM LEADER 800 [place] [address] documented as of this encounter Visit Diagnoses [...] documented as of this encounter Care Teams Segmental Wall Installer Relationship Specialty Start Date End Date Zhao Harris MD [address] [place] [address] [phone] PCP - General 12/03/20 documented as of this encounter
--- OUTSIDE RECORDS SUMMARY | 2024-12-30 08:31 | XMS_ITS | Encounter Summary ---
Author Organization [facility] Address [address] [place] [address] Care Team Providers Care Sports Writer Name Role Phone Zhao Harris MD Primary Care Provider [phone] Encounter Details Date Type Department Care Team (Late st Contact Info) Description 12/04/2024 [facility]phone [facility] [address] [place] [address] Martha William Social History Tobacco Use Types Packs/Day Years [...] first t manav in the morning (EYE-DIE TECHNICIAN) to steady your nerves or to get rid of a hangover? 0 11/03/2024 CAGE Questionnaire Score 0 025 Sex and Gender Information Value Date Recorded Sex Assigned at Male 05/18/2023 9:35 AM EDT Legal Sex Male 7:29 PM EDT Gender Identity Male 05/18/2023 9:35 AM EDT Sexual Orientation Straight 05/18/2023 9: 35 AM EDT documented as of this encounter Miscellaneous Notes * Telephone Encounter - Clarisa Orosco RN - 12/04/2024 11:06 AM EDT Reaching out to the patient's spouse to let her know that it is ok to remove the bandage on his wilfred site. Instructed them to leave it open to air after removal. Reiterated that it is not necessary to have a bandage on the port site. Discussed that the patient is able to shower/clean the port site but to avoid vigorous scrubbing. Informed them that the liquid suture that is in place will falloff on it's own over time. Patient and his verbalized understanding. Encouraged them to reach backout with any other concerns/issues. * Telephone Encounter - Martha William - 12/04/2024 10:07 AM EDT Pt called back. I let her know someone would reach out again * Telephone Encounter - Delaney Stanley RN - 12/04/2024 10:01 AM EDT Left message to call back. * Telephone Encounter - Martha William - 12/04/2024 8:12 AM EDT Pt's calling to ask what to do for his port . Not sure if they need to bandage it. Requesting CB@ [phone] documented in this encounter Plan of Treatment Upcoming Encounters Date Type Department Care Team (Late st Contact Info) Description 01/06/2025 8:30 AM EDT Clinical Support [facility] Hematology/BMT and Cellular Therapy Program [address] [place] [address] [place] [address] 01/06/2025 9:00 AM EDT Procedure Visit [facility] Hematology/BMT and Cellular Therapy Program [address] [place] [address] [place] [address] Kierra Novak, INVESTMENT BROKER 800 [facility] [address] [place] [phone] 01/13/2025 9:30 AM EDT Clinical Support [facility] Hematology/BMT and Cellular Therapy Program [address] [place] [phone] 01/13/2025 10:00 AM EDT Office Visit [facility] Hematology/BMT and Cellular Therapy Program [address] [phone] Isaura Wynn, INVESTMENT BROKER 800 [facility] [address] [place] [phone] 01/13/2025 11:30 AM EDT Appointment [facility] Infusion 800 [place] [address] 01/14/2025 2:00 PM EDT Appointment [facility]fusion 800 [place] [address] 01/15/2025 2:00 PM EDT Appointment [facility] 800 [place] [address] 01/16/2025 2:00 PM EDT Appointment [facility]fusion 800 [place] [address] 01/17/2025 2:00 PM EDT Appointment [facility]fusion 800 [place] [address] 01/18/2025 2:00 PM EDT Appointment [facility]fusion 800 [place] [address] 01/19/2025 2:00 PM EDT Appointment [facility]fusion 800 [place] [address] 03/10/2025 11:20 AM EDT Office Visit [facility] Head, Neck & Respiratory 800 [facility], 2nd [place] [address] Elsa Razo, INVESTMENT BROKER 800 [place] [address] documented as of this encounter Visit Diagnoses [...] documented as of this encounter Care Teams Sports Writer Relationship Specialty Start Date End Date Zhao Harris MD 1210 [facility] [address], [place] [address] PCP - General 12/03/20 documented as of this encounter
--- OUTSIDE RECORDS SUMMARY | 2024-12-30 08:31 | XMS_ITS | Encounter Summary ---
Author Organization [facility] Address [address] [place] [address] Care Team Providers Care Roll Cutter Name Role Phone Zhao Harris MD Primary Care Provider [phone] Encounter Details Date Type Department Care Team (Latest Contact Info) Description 12/09/2024 Travel Social History Tobacco Use Types Packs/Day [...] drink first t manav in the morning (EYE-INSTRUCTOR WATCH ASSEMBLY) to steady your nerves or to get [...] ([facility] st Contact Info) Description 01/06/2025 8:30 AM EDT Clinical Support [facility] Hematology/BMT and Cellular Therapy Program [address] [phone] 01/06/2025 9:00 AM EDT Procedure Visit [facility] Hematology/BMT and Cellular Therapy Program [address] [address] Kierra Novak, BOWLING BALL PATCHER 800 [facility] [address] [place] [phone] 01/13/2025 9:30 AM EDT Clinical Support [facility] Hematology/BMT and Cellular Therapy Program [address] [address] 01/13/2025 10:00 AM EDT Office Visit [facility] Hematology/BMT and Cellular Therapy Program [address] [phone] Isaura Wynn, BOWLING BALL PATCHER 800 [facility] [address] [place] [phone] 01/13/2025 11:30 AM EDT Appointment [facility] Infusion 800 [place] [phone] 01/14/2025 2:00 PM EDT Appointment [facility] Infusion 800 [place] [phone] 01/15/2025 2:00 PM EDT Appointment [facility]fusion 800 [place] [address] 01/16/2025 2:00 PM EDT Appointment [facility]fusion 800 [place] [phone] 01/17/2025 2:00 PM EDT Appointment [facility] Infusion 800 [place] [address] 01/18/2025 2:00 PM EDT Appointment [facility] Infusion 800 [place] [address] 01/19/2025 2:00 PM EDT Appointment [facility] Infusion 800 [place] [address] 03/10/2025 11:20 AM EDT Office Visit [facility] Head, Neck & Respiratory 800 [facility], 2nd [place] [address] Elsa Razo, BOWLING BALL PATCHER 800 [place] [address] documented as of this encounter Visit Diagnoses [...] documented as of this encounter Care Teams Roll Cutter Relationship Specialty Start Date End Date Zhao Harris MD [address] [place] [address] [phone] PCP - General 12/03/20 documented as of this encounter
--- OUTSIDE RECORDS SUMMARY | 2024-12-30 08:31 | XMS_ITS | Encounter Summary ---
Author Organization [facility] Address [address] [place] [address] Care Team Providers Care Isobutylene Operator Chief Name Role Phone Zhao Harris MD Primary Care Provider [phone] Encounter Details Date Type Department Care Team (Latest Contact Info) Description 12/01/2024 Travel Social History Tobacco Use Types Packs/Day [...] drink first t manav in the morning (EYE-CONTACT CENTRE SUPERVISOR) to steady your nerves or to get rid of a hangover? 0 11/03/2024 CAGE Questionnaire Score 0 025 Sex and Gender Information Value Date Recorded Sex Assigned at Male 05/18/2023 9:35 AM EDT Legal Sex Male 7:29 PM EDT Gender Identity Male 05/18/2023 9:35 AM EDT Sexual Orientation Straight 05/18/2023 9: 35 AM EDT documented as of this encounter Functional Status * Calculated C-SSRS Risk Score (Lifetime/Recent) Answer Date of Assessment Author No Risk Indicated 12/01/2024 9:46 AM EDT Gela Singer * Question Answer Date of Assessment Author 1. Wish to be (Past 1 Month) No 025 9:46 AM EDT Gela Singer 2. Non-Specific Active Suici berry Thoughts (Past 1 Month) No 12/01/2024 9:46 AM EDT Saúl Singer 6. Suicidal Behavior (Lifetime) No 9:46 AM EDT Gela Singer documented as of this encounter Plan of Treatment Upcoming Encounters Date Type Department Care Team ([facility] Contact Info) Description 01/06/2025 8:30 AM EDT Clinical Support [facility] Hematology/BMT and Cellular Therapy Program [address] [place] [phone] 01/06/2025 9:00 AM EDT Procedure Visit [facility] Hematology/BMT and Cellular Therapy Program [address] [place] [phone] Kierra Novak, INSURANCE AGENTS SUPERVISOR 800 [facility] [address] [place] [phone] 01/13/2025 9:30 AM EDT Clinical Support [facility] Hematology/BMT and Cellular Therapy Program [address] [place] [phone] 01/13/2025 10:00 AM EDT Office Visit [facility] Hematology/BMT and Cellular Therapy Program [address] [place] [phone] Isaura Wynn, INSURANCE AGENTS SUPERVISOR 800 [facility] [address] [place] [phone] 01/13/2025 11:30 AM EDT Appointment [facility] Infusion 800 [place] [address] 01/14/2025 2:00 PM EDT Appointment [facility] Infusion 800 [place] [address] 01/15/2025 2:00 PM EDT Appointment [facility] Infusion 800 [place] [address] 01/16/2025 2:00 PM EDT Appointment [facility] Infusion 800 [place] [address] 01/17/2025 2:00 PM EDT Appointment [facility] Infusion 800 [place] [address] 01/18/2025 2:00 PM EDT Appointment [facility] Infusion 800 [place] [address] 01/19/2025 2:00 PM EDT Appointment [facility] Infusion 800 [place] [address] 03/10/2025 11:20 AM EDT Office Visit [facility] Head, Neck & Respiratory 800 [facility], [address]nd [place] [address] Elsa Razo, INSURANCE AGENTS SUPERVISOR 800 [place] [address] documented as of this encounter Visit Diagnoses [...] documented as of this encounter Care Teams Isobutylene Operator Chief Relationship Specialty Start Date End Date Zhao Harris MD [address] [phone] PCP - General 12/03/20 documented as of this encounter
--- OUTSIDE RECORDS SUMMARY | 2024-12-30 08:31 | XMS_ITS ---
Author Organization [facility] Address [address] [place] [address] Care Team Providers Care Driller Helper Name Role Phone Zhao Harris MD Primary Care Provider [phone] Active Problems Problem Noted Date Diagnosed Date Thrombocytopenia 10/22/2024 Myelodysplasia (myelodysplastic syndrome) 2024 Corneal abrasion 06/02/2024 Fatigue 06/02/2024 Foreign body of left eye 06/02/2024 Sinusitis 06/02/2024 Smoker 06/02/2024 SOB (shortness of breath) 06/02/2024 Coronary artery calcification seen on CT scan Angina of effort 05/03/2023 Cervical radiculopathy 05/22/2019 Neck pain 05/22/2019 CAD (coronary artery disease) 04/24/2019 HLD (hyperlipidemia) 04/24/2019 05/02/2023 BRBPR (bright red blood per rectum) 04/24/2019 HHD (hypertensive heart disease) 04/24/2019 Arthritis of knee 03/29/2017 Rotator cuff tear 04/23/2014 Current Treatment and Therapy Plans Azacitidine Daily x 7 / Venetoclax Every 28 Days* Plan Start Date:10/14/2024 Plan Provider:Virgen Vargas MD Linked Problems Myelodysplasia (myelodysplas tic syndrome) (CMS/HCC) Treatment Medications Current Day (Day 1 5, Cycle 3 - Planned for 12/30/2024) Next Day (Day 17, Cycle 3 - Planned for 01/01/2025) azaCITIDine (Vidaza)azaCITID ine (Vidaza) IVPBvenetoclax (Venclexta) No medications scheduled. No medications scheduled. HEM/BMT Blood Administration for Outpatient* Plan Start Date:10/22/2024 Plan Provider:Kayli Ospina PA Linked Problems Myelodysplasia (myelodysplas tic syndrome) ([facility]/HCC)Thrombocytopenia (CMS/HCC) Treatment Medications No medications scheduled. Past Treatment and Therapy Plans Blood Product Infusion 1 Plan Name Start Date Discontinue Date Treatment Medications Discontinue Reason Plan Provider HEM/BMT Blood Administration for Outpatient 10/22/2024 10/22/2024 No medications scheduled. Other (See Comments) Kayli Ospina PA HEM/BMT Blood Administration for Outpatient 10/22/2024 10/22/2024 No medications scheduled. Other (See Comments) Kayli Ospina PA Lifetime Dose Tracking * Chemical Lifetime Dose Automatic Entry Manual Entr y Fluoro Time 0.5 minutes 0.5 minutes 0 minutes Air Kerma 6 mGy 6 mGy 0 mGy Air Kerma Area Product 94.88 Gym 94.88 Gym 0 Gym Resolved Problems Problem Noted Date Diagnosed Date Resolved Date 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
--- OUTSIDE RECORDS SUMMARY | 2024-12-30 08:31 | XMS_ITS | Encounter Summary ---
Author Organization [facility] Address [address] [place] [address] Care Team Providers Care Face Cleaner Name Role Phone Zhao Harris MD Primary Care Provider [phone] Encounter Details Date Type Department Care Team ([facility] st Contact Info) Description 12/09/2024 Telephone [facility] Hematology/BMT and Cellular Therapy Program [address] [place] [address] [place] [address] Essie Ricks RN [facility] HEMATOLOGY PROGRAM CLINIC Social [...] drink first t manav in the morning (EYE-SLEEVE SETTER) to steady your nerves or to get [...] encounter Miscellaneous Notes * Clinician Note - Mague Trevino RN - 12/09/2024 1:06 PM EDT Called and reviewed scripts with pharmacy. documented in this encounter Plan of Treatment Upcoming Encounters Date Type Department Care Team ([facility] Contact Info) Description 01/06/2025 8:30 AM EDT Clinical Support [facility] Hematology/BMT and Cellular Therapy Program [address] [phone] 01/06/2025 9:00 AM EDT Procedure Visit [facility] Hematology/BMT and Cellular Therapy Program [address] [phone] Kierra Novak, ELECTROTHERAPIST 800 [facility] [address] [place] [phone] 01/13/2025 9:30 AM EDT Clinical Support [facility] Hematology/BMT and Cellular Therapy Program [address] [address] 01/13/2025 10:00 AM EDT Office Visit [facility] Hematology/BMT and Cellular Therapy Program [address] [place] [phone] Isaura Wynn, ELECTROTHERAPIST 800 [facility] [address] [place] [phone] 01/13/2025 11:30 AM EDT Appointment [facility] Infusion 800 [place] [address] 01/14/2025 2:00 PM EDT Appointment [facility] Infusion 800 [place] [address] 01/15/2025 2:00 PM EDT Appointment [facility] Infusion 800 [place] [address] 01/16/2025 2:00 PM EDT Appointment [facility] Infusion 800 [place] [address] 01/17/2025 2:00 PM EDT Appointment [facility] 800 [place] [address] 01/18/2025 2:00 PM EDT Appointment [facility] 800 [place] [address] 01/19/2025 2:00 PM EDT Appointment [facility] Infusion 800 [place] [address] 03/10/2025 11:20 AM EDT Office Visit [facility] Head, Neck & Respiratory 800 [facility], 2nd [place] [address] Elsa Razo, ELECTROTHERAPIST 800 [place] [address] documented as of this encounter Visit Diagnoses [...] documented as of this encounter Care Teams Face Cleaner Relationship Specialty Start Date End Date Zhao Harris MD 1210 [facility] [address], [place] [address] PCP - General 12/03/20 documented as of this encounter
--- OUTSIDE RECORDS SUMMARY | 2024-12-30 08:32 | XMS_ITS | Encounter Summary ---
Author Organization Healthcare Address [address] [place] [address] Care Team Providers Care Child Attendant Name Role Phone Zhao Harris MD Primary Care Provider [phone] Encounter Details Date Type Department Care Team (Latest Contact Info) Description 12/19/2024 Travel Social History Tobacco Use Types Packs/Day [...] drink first t manav in the morning ([employer] SUPERVISOR) to steady your nerves or to [...] ([facility] st Contact Info) Description 01/06/2025 8:30 AM EDT Clinical Support [facility] [address] [phone] 01/06/2025 9:00 AM EDT Procedure Visit [facility] [address] [phone] Kierra Novak, MOLDER OPERATOR 800 [facility] [address] [place] [phone] 01/13/2025 9:30 AM EDT Clinical Support [facility] [address] [phone] 01/13/2025 10:00 AM EDT Office Visit [facility] [address] [phone] Isaura Wynn, MOLDER OPERATOR 800 [facility] [address] [place] [phone] 01/13/2025 11:30 AM EDT Appointment [facility] [address] [place] [phone] 01/14/2025 2:00 PM EDT Appointment [facility] [address] [place] [phone] 01/15/2025 2:00 PM EDT Appointment [facility] [address] [place] [phone] 01/16/2025 2:00 PM EDT Appointment [facility] [address] [place] [phone] 01/17/2025 2:00 PM EDT Appointment [facility] [address] [place] [address] 01/18/2025 2:00 PM EDT Appointment [facility] [address] [place] [address] 01/19/2025 2:00 PM EDT Appointment [facility] [address] [place] [address] 03/10/2025 11:20 AM EDT Office Visit [facility] 800 [facility], [address] [place] [address] Elsa Razo, MOLDER OPERATOR [address] [place] [address] documented as of this encounter Visit Diagnoses [...] documented as of this encounter Care Teams Child Attendant Relationship Specialty Start Date End Date Zhao Harris MD [address] [place] [id number] PCP - General 12/03/20 documented as of this encounter
--- OUTSIDE RECORDS SUMMARY | 2024-12-30 08:32 | XMS_ITS | Encounter Summary ---
Author Organization [facility] Address [address] [place] [address] Care Team Providers Care Through Freight Engineer Name Role Phone Unavailable Primary Care Provider Unavailabl e Encounter Details Date Type Department Care Team (Late st Contact Info) Description 07/10/2019 Transcribed Document [facility] Family [facility] [place] [address] ProviderBrigida MD [address] [place] [id number] Social History Tobacco Use Types Packs/Day Years Used Date Smoking Tobacco: Never Assessed Sex and Gender Information Value Date Recorded Sex Assigned at Male 01/17/2022 8:17 PM CDT Legal Sex Male 8:17 PM CDT Gender Identity Male 01/17/2022 8:17 PM CDT Sexual Orientation Not on file documented as of this encounter Miscellaneous Notes * Cerner Conversion Note - Brigida ProviderMD - 07/10/2019 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 Keep dressing clean and dry for at least 2 days. Resume all home medications. Usual diet as tolerated. [place] 10/325mg 1 tablet every 6 hours as needed for pain- next dose due @ 3:30pm today 07/10/19. Follow-Up Appointments Follow Up with SURY SHARMA MD-ORT When 07/21/2019 02:00 PM EST Where: [facility] [address] [place] [id number]- Medications What How Much When Instructions Next Dose atorvastatin (atorvastatin 80 mg oral tablet) 1 Tablet(s) Oral Every Day amLODIPine (amLODIPine 2.5 mg oral tablet) 1 Tablet(s) Oral Every Day bisoprolol (bisoprolol 5 mg oral tablet) 1 Tablet(s) Oral At Bedtime gabapentin (gabapentin 300 mg oral capsule) 1 Capsule(s) Oral Three Times A Day Take your medications faithfully. Do NOT skip medication. Do NOT stop taking medications without the direction of a physician. Carry a list of your medications with you at all times, and take this medication list with you to your first follow up visit. Report any side effects. Avoid herbal remedies unless discussed with your physician. As part of your treatment plan, your physician may have prescribed a limited course of a controlled substance. This medication may be given to help people with moderate or severe pain or for other medical conditions, but there are risks involved with treatment. Common side effects may include nausea, constipation, drowsiness, sweating, itching, dry mouth, and rash. More serious side effects may include cognitive and motor impairment, like problems with thinking, concentrating, alertness, and movement (e.g. slowed reflexes), and driving and operating heavy machinery can be dangerous. It is important for you to talk to your physician if you have these side effects or questions. These controlled substances can produce physical dependence and be habit-forming if taken for an extended period of time, which means that the body has gotten used to them and may experience withdrawal symptoms if they are abruptly stopped. Withdrawal symptoms can include runny nose, sweating, goose bumps, diarrhea, abdominal cramping, rapid heartbeat, difficulty sleeping, and nervousness. Please dispose of unused and medications per pharmacy guidance. Education Materials Local Anesthesia, Care After This sheet gives you information about how to care for yourself after your procedure. Your health care provider may also give you more specific instructions. If you have problems or questions, contact your health care provider. What can I expect after the procedure? After the procedure, it is common to have: ??? Numbness in the area where you were given local anesthetic medicine. This numbness usually wears off within a few hours. It should be completely gone after 24 hours. ??? Bruising, bleeding, or redness in the area where the medicine was given. Follow these instructions at home: If you had an injection: ??? Check the area where the medicine was injected every day for signs of infection. Check for: ? Redness, swelling, or pain. ? Fluid or blood. ? Warmth. ? Pus or a bad smell. General instructions ??? Follow instructions from your health care provider about how to take care of the area that was numbed. Protect the area from harm until the medicine wears off and you regain full feeling in the area. ??? If you have a wound or incision, keep it clean and dry. ??? Return to your normal activities as told by your health care provider. Ask your health care provider what activities are safe for you. ??? Take vkyg-ibr-hznuefa and prescription medicines only as told by your health care provider. Contact a health care provider if: ??? You have numbness at the procedure site that last more than 24 hours. ??? You have pain at the procedure site that is not controlled with the pain medicine that your health care provider gave you. ??? You have redness or swelling around the procedure site. ??? The injection area feels warm to the touch. ??? You have pus or a bad smell coming from the injection site. ??? You have a fever. Get help right away if: ??? You have trouble breathing. ??? You have chest pain. Summary ??? After the procedure, it is common to have numbness for many hours in the area where you were given local anesthetic medicine. ??? Protect the numbed area from harm until the medicine wears off and you regain full feeling in the area. This information is not intended to replace advice given to you by your health care provider. Make sure you discuss any questions you have with your health care provider. Document Released: 12/28/2017 Document Revised: 03/07/2018 Document Reviewed: 12/28/2017 [employer] Interactive Patient Education ?? 2019 [employer] General Anesthesia, Adult, Care After This sheet gives you information about how to care for yourself after your procedure. Your health care provider may also give you more specific instructions. If you have problems or questions, contact your health care provider. What can I expect after the procedure? After the procedure, the following side effects are common: ??? Pain or discomfort at the IV site. ??? Nausea. ??? Vomiting. ??? Sore throat. ??? Trouble concentrating. ??? Feeling cold or chills. ??? Weak or tired. ??? Sleepiness and fatigue. ??? Soreness and body aches. These side effects can affect parts of the body that were not involved in surgery. Follow these instructions at home: For at least 24 hours after the procedure: ??? Have a responsible adult stay with you. It is important to have someone help care for you until you are awake and alert. ??? Rest as needed. ??? Do not: ? Participate in activities in which you could fall or become injured. ? Drive. ? Use heavy machinery. ? Drink alcohol. ? Take sleeping pills or medicines that cause drowsiness. ? Make important decisions or sign legal documents. ? Take care of children on your own. Eating and drinking ??? Follow any instructions from your health care provider about eating or drinking restrictions. ??? When you feel hungry, start by eating small amounts of foods that are soft and easy to digest (bland), such as toast. Gradually return to your regular diet. ??? Drink enough fluid to keep your urine pale yellow. ??? If you vomit, rehydrate by drinking water, juice, or clear broth. General instructions ??? If you have sleep apnea, surgery and certain medicines can increase your risk for breathing problems. Follow instructions from your health care provider about wearing your sleep device: ? Anytime you are sleeping, including during daytime naps. ? While taking prescription pain medicines, sleeping medicines, or medicines that make you drowsy. ??? Return to your normal activities as told by your health care provider. Ask your health care provider what activities are safe for you. ??? Take puqv-egz-dfvaddd and prescription medicines only as told by your health care provider. ??? If you smoke, do not smoke without supervision. ??? Keep all follow-up visits as told by your health care provider. This is important. Contact a health care provider if: ??? You have nausea or vomiting that does not get better with medicine. ??? You cannot eat or drink without vomiting. ??? You have pain that does not get better with medicine. ??? You are unable to pass urine. ??? You develop a skin rash. ??? You have a fever. ??? You have redness around your IV site that gets worse. Get help right away if: ??? You have difficulty breathing. ??? You have chest pain. ??? You have blood in your urine or stool, or you vomit blood. Summary ??? After the procedure, it is common to have a sore throat or nausea. It is also common to feel tired. ??? Have a responsible adult stay with you for the first 24 hours after general anesthesia. It is important to have someone help care for you until you are awake and alert. ??? When you feel hungry, start by eating small amounts of foods that are soft and easy to digest (bland), such as toast. Gradually return to your regular diet. ??? Drink enough fluid to keep your urine pale yellow. ??? Return to your normal activities as told by your health care provider. Ask your health care provider what activities are safe for you. This information is not intended to replace advice given to you by your health care provider. Make sure you discuss any questions you have with your health care provider. Document Released: 10/15/2001 Document Revised: 02/22/2018 Document Reviewed: 02/22/2018 [employer] Interactive Patient Education ?? 2019 [employer] Knee Arthroscopy, Care After Refer to this sheet in the next few weeks. These instructions provide you with information about caring for yourself after your procedure. Your health care provider may also give you more specific instructions. Your treatment has been planned according to current medical practices, but problems sometimes occur. Call your health care provider if you have any problems or questions after your procedure. What can I expect after the procedure? After the procedure, it is common to have: ??? Soreness. ??? Pain. Follow these instructions at home: Bathing ??? Do not take baths, swim, or use a hot tub until your health care provider approves. Incision care ??? There are many different ways to close and cover an incision, including stitches, skin glue, and adhesive strips. Follow your health care provider???s instructions about: ? Incision care. ? Bandage (dressing) changes and removal. ? Incision closure removal. ??? Check your incision area every day for signs of infection. Watch for: ? Redness, swelling, or pain. ? Fluid, blood, or pus. Activity ??? Avoid strenuous activities for as long as directed by your health care provider. ??? Return to your normal activities as directed by your health care provider. Ask your health care provider what activities are safe for you. ??? Perform rtgfi-nl-uzodcy exercises only as directed by your health care provider. ??? Do not lift anything that is heavier than 10 lb (4.5 kg). ??? Do not drive or operate heavy machinery while taking pain medicine. ??? If you were given crutches, use them as directed by your health care provider. Managing pain, stiffness, and swelling ??? If directed, apply ice to the injured area: ? Put ice in a plastic bag. ? Place a towel between your skin and the bag. ? Leave the ice on for 20 minutes, 2???3 times per day. ??? Raise the injured area above the level of your heart while you are sitting or lying down as directed by your health care provider. General instructions ??? Keep all follow-up visits as directed by your health care provider. This is important. ??? Take medicines only as directed by your health care provider. ??? Do not use any tobacco products, including cigarettes, chewing tobacco, or electronic cigarettes. If you need help quitting, ask your health care provider. ??? If you were given compression stockings, wear them as directed by your health care provider. These stockings help prevent blood clots and reduce swelling in your legs. Contact a health care provider if: ??? You have severe pain with any movement of your knee. ??? You notice a bad smell coming from the incision or dressing. ??? You have redness, swelling, or pain at the site of your incision. ??? You have fluid, blood, or pus coming from your incision. Get help right away if: ??? You develop a rash. ??? You have a fever. ??? You have difficulty breathing or have shortness of breath. ??? You develop pain in your calves or in the back of your knee. ??? You develop chest pain. ??? You develop numbness or tingling in your leg or foot. This information is not intended to replace advice given to you by your health care provider. Make sure you discuss any questions you have with your health care provider. Document Released: 01/26/2006 Document Revised: 12/08/2016 Document Reviewed: 07/05/2015 [employer] Interactive Patient Education ?? 2018 [employer]. acetaminophen and hydrocodone (a SEET a MIN oh fen and laurie droe KOE done) Hycet, Lorcet, [place], Verdrocet, Vicodin, Xodol, Zamicet What is the most important information I should know about acetaminophen and hydrocodone? MISUSE OF OPIOID MEDICINE CAN CAUSE ADDICTION, OVERDOSE, OR . Keep the medication in a place where others cannot get to it. An overdose of acetaminophen can damage your liver or cause . Call your doctor at once if you have pain in your upper stomach, loss of appetite, dark urine, or jaundice (yellowing of your skin or eyes). Taking opioid medicine during may cause life-threatening withdrawal symptoms in the . Fatal side effects can occur if you use opioid medicine with alcohol, or with other drugs that cause drowsiness or slow your breathing. Stop taking this medicine and call your doctor right away if you have skin redness or a rash that spreads and causes blistering and peeling. What is acetaminophen and hydrocodone? Hydrocodone is an opioid pain medication, sometimes called a narcotic. Acetaminophen is a less potent pain reliever that increases the effects of hydrocodone. Acetaminophen and hydrocodone is a combination medicine used to relieve moderate to severe pain. Acetaminophen and hydrocodone may also be used for purposes not listed in this medication guide. What should I discuss with my healthcare provider before taking acetaminophen and hydrocodone? You should not use this medicine if you are allergic to acetaminophen or hydrocodone, or if you have: ?? severe asthma or breathing problems; or ?? a blockage in your stomach or intestines. Tell your doctor if you have ever had: ?? liver disease; ?? a drug or alcohol addiction; ?? kidney disease; ?? a head injury or seizures; ?? urination problems; or ?? problems with your thyroid, pancreas, or gallbladder. If you use opioid medicine while you are , your baby could become dependent on the drug. This can cause life-threatening withdrawal symptoms in the baby after it is born. Babies born dependent on opioids may need medical treatment for several weeks. Do not breast-feed. This medicine can pass into breast milk and cause drowsiness, breathing problems, or in a nursing baby. How should I take acetaminophen and hydrocodone? Follow all directions on your prescription label. Never take this medicine in larger amounts, or for longer than prescribed. An overdose can damage your liver or cause . Tell your doctor if the medicine seems to stop working as well in relieving your pain. Always check your bottle to make sure you have received the correct pills (same brand and type) of medicine prescribed by your doctor. Never share this medicine with another person, especially someone with a history of drug abuse or addiction. MISUSE CAN CAUSE ADDICTION, OVERDOSE, OR . Keep the medicine in a place where others cannot get to it. Selling or giving away acetaminophen and hydrocodone is against the law. Measure liquid medicine carefully. Use the dosing syringe provided, or use a medicine dose-measuring device (not a kitchen spoon). If you need surgery or medical tests, tell the doctor ahead of time that you are using this medicine. You should not stop using this medicine suddenly. Follow your doctor's instructions about tapering your dose. Store at room temperature away from moisture and heat. Keep track of your medicine. You should be aware if anyone is using it improperly or without a prescription. Do not keep leftover opioid medication. Just one dose can cause in someone using this medicine accidentally or improperly. Ask your pharmacist where to locate a drug take-back disposal program. If there is no take-back program, flush the unused medicine down the toilet. What happens if I miss a dose? Since this medicine is used for pain, you are not likely to miss a dose. Skip any missed dose if it is almost time for your next dose. Do not use two doses at one time. What happens if I overdose? Seek emergency medical attention or call the Poison Help line at . An overdose of acetaminophen and hydrocodone can be fatal. The first signs of an acetaminophen overdose include loss of appetite, nausea, vomiting, stomach pain, sweating, and confusion or weakness. Later symptoms may include pain in your upper stomach, dark urine, and yellowing of your skin or the whites of your eyes. Overdose can also cause severe muscle weakness, pinpoint pupils, very slow breathing, extreme drowsiness, or coma. What should I avoid while taking acetaminophen and hydrocodone? Avoid driving or operating machinery until you know how this medicine will affect you. Dizziness or drowsiness can cause falls, accidents, or severe injuries. Do not drink alcohol. Dangerous side effects or could occur. Ask a doctor or pharmacist before using any other medicine that may contain acetaminophen (sometimes abbreviated as APAP). Taking certain medications together can lead to a fatal overdose. What are the possible side effects of acetaminophen and hydrocodone? Get emergency medical help if you have signs of an allergic reaction: hives; difficulty breathing; swelling of your face, lips, tongue, or throat. Opioid medicine can slow or stop your breathing, and may occur. A person caring for you should seek emergency medical attention if you have slow breathing with long pauses, blue colored lips, or if you are hard to wake up. In rare cases, acetaminophen may cause a severe skin reaction that can be fatal. This could occur even if you have taken acetaminophen in the past and had no reaction. Stop taking this medicine and call your doctor right away if you have skin redness or a rash that spreads and causes blistering and peeling. Call your doctor at once if you have: ?? noisy breathing, sighing, shallow breathing; ?? a light-headed feeling, like you might pass out; ?? liver problems--nausea, upper stomach pain, tiredness, loss of appetite, dark urine, dorene-colored stools, jaundice (yellowing of the skin or eyes); or ?? low cortisol levels-- nausea, vomiting, loss of appetite, dizziness, worsening tiredness or weakness. Seek medical attention right away if you have symptoms of serotonin syndrome, such as: agitation, hallucinations, fever, sweating, shivering, fast heart rate, muscle stiffness, twitching, loss of coordination, nausea, vomiting, or diarrhea. Serious side effects may be more likely in older adults and those who are overweight, malnourished, or debilitated. Long-term use of opioid medication may affect fertility (ability to have children) in men or women. It is not known whether opioid effects on fertility are permanent. Common side effects include: ?? dizziness, drowsiness, feeling tired; ?? nausea, vomiting, stomach pain; ?? constipation; or ?? headache. This is not a complete list of side effects and others may occur. Call your doctor for medical advice about side effects. You may report side effects to FDA at 7-001-LKB-8495. What other drugs will affect acetaminophen and hydrocodone? You may have breathing problems or withdrawal symptoms if you start or stop taking certain other medicines. Tell your doctor if you also use an antibiotic, antifungal medication, heart or blood pressure medication, seizure medication, or medicine to treat HIV or hepatitis C. Opioid medication can interact with many other drugs and cause dangerous side effects or . Be sure your doctor knows if you also use: ?? cold or allergy medicines, bronchodilator asthma/COPD medication, or a diuretic ('water pill'); ?? medicines for motion sickness, irritable bowel syndrome, or overactive bladder; ?? other narcotic medications--opioid pain medicine or prescription cough medicine; ?? a sedative like Valium--diazepam, alprazolam, lorazepam, Xanax, Klonopin, Versed, and others; ?? drugs that make you sleepy or slow your breathing--a sleeping pill, muscle relaxer, medicine to treat mood disorders or mental illness; ?? drugs that affect serotonin levels in your body--a stimulant, or medicine for depression, Parkinson's disease, migraine headaches, serious infections, or nausea and vomiting. This list is not complete. Other drugs may affect acetaminophen and hydrocodone, including prescription and snat-oza-leefhve medicines, vitamins, and herbal products. Not all possible interactions are listed here. Where can I get more information? Your doctor or pharmacist can provide more information about acetaminophen and hydrocodone. Remember, keep this and all other medicines out of the reach of children, never share your medicines with others, and use this medication only for the indication prescribed. Every effort has been made to ensure that the information provided by [employer]. ('Vitronet Grouptum') is accurate, up-to-date, and complete, but no guarantee is made to that effect. Drug information contained herein may be time sensitive. [employer] information has been compiled for use by healthcare practitioners and consumers in the [place] and therefore [employer] does not warrant that uses outside of the [place] are appropriate, unless specifically indicated otherwise. [employer] drug information does not endorse drugs, diagnose patients or recommend therapy. [employer] drug information is an informational resource designed to assist licensed healthcare practitioners in caring for their patients and/or to serve consumers viewing this service as a supplement to, and not a substitute for, the expertise, skill, knowledge and judgment of healthcare practitioners. The absence of a warning for a given drug or drug combination in no way should be construed to indicate that the drug or drug combination is safe, effective or appropriate for any given patient. [employer] does not assume any responsibility for any aspect of healthcare administered with the aid of information [employer] provides. The information contained herein is not intended to cover all possible uses, directions, precautions, warnings, drug interactions, allergic reactions, or adverse effects. If you have questions about the drugs you are taking, check with your doctor, nurse or pharmacist. Copyright 5494-7404 [employer]. Version: 15.02. Revision Date: 05/27/2018. Emergency Awareness and Preventative Care STROKE is an EMERGENCY Every Minute Counts Act FAST and Check for these signs: FACE Does the face look uneven? ARM Does one arm drift down? SPEECH Does their speech sound strange? TIME Call at any sign of stroke Stroke Risk Factors Atrial Fibrillation (irregular heartbeat) Diabetes Family history of stroke Heart Disease Heavy alcohol use High Blood Pressure High Cholesterol Physical inactivity and obesity Smoking Cigarette Smoking The facts are clear, cigarette smoking will shorten your life. Smoking can cause many illnesses along the way. As a healthcare provider, we recommend that you stop smoking. Assistance with quitting is available by contacting 0-864-DDIE-NOW. This is a free resource providing counseling, support, and referral. Or you may contact your personal physician. National Suicide Prevention Lifeline: The National Suicide Prevention Lifeline is a national network of local crisis centers that provides free and confidential emotional support to people in suicidal crisis or emotional distress 24 hours a day, 7 days a week. Don't Wait! Stop a Heart Attack Before it Starts What is a heart attack? A heart attack is damage or to a part of the heart from severely decreased or lack of blood flow to the heart. Over time, arteries can become narrow from the buildup of fat and cholesterol, which is called plaque. The plaque can rupture causing a blood clot to form. When the blood clot forms, the artery can become severely narrowed or completely blocked, causing a heart attack. Heart attack is the leading cause of in the [place]. 85% of muscle damage occurs within the first 2 hours. Delay in the recognition of heart attack symptoms increases the chances of . Know the early symptoms of a heart attack: Nausea Feeling of fullness in chest Jaw Pain Pain that travels down one or both arms Fatigue/being tired Anxiety Back Pain Chest pressure, squeezing, or discomfort Shortness of breath Sweating, or a cold sweat Feeling of impending doom There are unusual signs of a heart attack, too! Women, the elderly, and diabetics may present with atypical symptoms: Fainting/dizziness Weakness Confusion Risk Factors for a Heart Attack Some heart disease risk factors, such as age and family history, cannot be changed. Others, like smoking and lack of exercise, can be changed. Smoking High Cholesterol High Blood Pressure Family History Obesity Age Gender (Males are at higher risk) Lack of Exercise Diabetes Diet Stress Excessive Alcohol Intake If you or someone you know is experiencing the signs and symptoms of a heart attack, DON???T DELAY. Call immediately and seek help. If someone collapses, perform CPR! Do not attempt to drive if you are having symptoms of heart attack. Hands-Only CPR Why Hands-Only CPR? Hands-Only CPR has been shown to be as effective as conventional CPR for cardiac arrests that occur outside of a hospital. Survival depends on immediately receiving CPR from someone nearby. How do you perform Hands-Only CPR? There are two easy steps: Call if you see a teen or adult collapse Push hard and fast in the center of the chest at a beat of 100 beats per minute. Save a life! 4 WAYS TO GET AHEAD OF SEPSIS SEPSIS is a MEDICAL EMERGENCY. Time matters! Infections put you and your family at risk for a life-threatening condition called sepsis. Sepsis is the body's extreme response to an infection. It is life-threatening, and without timely treatment, sepsis can rapidly lead to tissue damage, organ failure, and . Sepsis happens when an infection you already have-in your skin, lungs, urinary tract or somewhere else-triggers a chain reaction throughout your body. 1 PREVENT INFECTIONS Take good care of chronic conditions. Talk to your doctor about getting the recommended vaccines. 2 PRACTICE GOOD HYGIENE Wash your hands frequently. Keep cuts or open sores clean and covered until they are healed. 3 KNOW THE SYMPTOMS Confusion or disorientation Shortness of breath High heart rate Fever, shivering, or feeling very cold Extreme pain or discomfort Clammy or sweaty skin 4 ACT FAST Get medical care IMMEDIATELY if you suspect sepsis or if you have an infection that is not getting better or is getting worse. To learn more about sepsis and how to prevent infections, visit www.cdc.gov/sepsis. Test Results Laboratory or Other Results This Visit (last charted value for your 07/10/2019 visit) No Laboratory or Other Results This Visit Patient Name:HUGO AGUILAR JR I have received this information and was given the opportunity to ask questions. Patient/Pie Maker Name: Patient/Pie Maker Signature: Relationship to Patient: Clinician/Hospital Pie Maker Signature: Date: documented in this encounter Plan of Treatment Not on file documented as of this encounter Visit Diagnoses Not on filedocumented in this encounter
--- OUTSIDE RECORDS SUMMARY | 2024-12-30 08:32 | XMS_ITS | Encounter Summary ---
Author Organization [facility] Address [address] [place] [address] Care Team Providers Care Mushroom Laborer Name Role Phone Zhao Harris MD Primary Care Provider + [phone] Reason for Visit * Reason Comments Med Refill Encounter Details Date Type Department Care Team (Late st Contact Info) Description 06/19/2023 Refill [facility] 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, unspecified vessel or lesion type (CMS/HCC) Social History Tobacco Use Types Packs/Day Years Used Date Smoking Tobacco: Every Day Cigarettes 1.5 15 Passive Smoke Exposure: Current Smokeless Tobacco: Never Alcohol Use Standard Drinks/Week Comments Yes 0 (1 standard drink = 0.6 oz pur e alcohol) Sex and Gender Information Value Date Recorded Sex Assigned at Male 05/18/2023 9:35 AM EDT Legal Sex Male 7:29 PM EDT Gender Identity Male 05/18/2023 9:35 AM EDT Sexual Orientation Straight 05/18/2023 9: 35 AM EDT documented as of this encounter Plan of Treatment Upcoming Encounters Date Type Department Care Team (Late Contact Info) Description 01/06/2025 8:30 AM EDT Clinical Support [facility] [address] [place] [address] 01/06/2025 9:00 AM EDT Procedure Visit [facility] [address] [phone] Kierra Novak, PROPERTY ASSISTANT [address] [facility] [address] [place] [phone] 01/13/2025 9:30 AM EDT Clinical Support [facility] [address] [phone] 01/13/2025 10:00 AM EDT Office Visit [facility] [address] [phone] Isaura Wynn, PROPERTY ASSISTANT [address] [facility] [address] [place] [phone] 01/13/2025 11:30 AM EDT Appointment [facility] [address] [place] [phone] 01/14/2025 2:00 PM EDT Appointment [facility] [address] [place] [phone] 01/15/2025 2:00 PM EDT Appointment [facility] [address] [place] [address] 01/16/2025 2:00 PM EDT Appointment [facility] [address] [place] [address] 01/17/2025 2:00 PM EDT Appointment [facility] [address] [place] [phone] 01/18/2025 2:00 PM EDT Appointment [facility] [address] [place] [phone] 01/19/2025 2:00 PM EDT Appointment [facility] [address] [place] [phone] 03/10/2025 11:20 AM EDT Office Visit [facility] [address] [place] [address] Elsa Razo, PROPERTY ASSISTANT [address] [place] [phone] documented as of this encounter Visit Diagnoses Diagnosis Hypertension, unspecified type 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, unspecified vessel or lesion type (CMS/HCC) documented in this encounter Additional Health Concerns Infection Onset Date Last Indicated Resolved Time Respiratory Rule-Out 11/03/2024 11/03/2024 025 5:17 PM EDT Assessment Noted Time A fall risk assessment has been complete d for the patient 05/17/2023 1:16 PM EDT A Body Mass Index follow-up plan has been documented for the patient 05/17/2023 1:37 PM EDT documented as of this encounter Care Teams Mushroom Laborer Relationship Specialty Start Date End Date Zhao Harris MD [address] [place] [address] PCP - General 12/03/20 documented as of this encounter
--- OUTSIDE RECORDS SUMMARY | 2024-12-30 08:32 | XMS_ITS | Encounter Summary ---
Author Organization [facility] Address [address] [place] [address] Care Team Providers Care Shift Supervisor Rn Name Role Phone Unavailable Primary Care Provider Unavailabl e Encounter Details Date Type Department Care Team (Late st Contact Info) Description 07/10/2019 Transcribed Document [facility] [place] [facility] [place] [address] ProviderBrigida MD [address] [place] [address] Social History Tobacco Use Types Packs/Day Years Used Date Smoking Tobacco: Never Assessed Sex and Gender Information Value Date Recorded Sex Assigned at Male 01/17/2022 8:17 PM CDT Legal Sex Male 8:17 PM CDT Gender Identity Male 01/17/2022 8:17 PM CDT Sexual Orientation Not on file documented as of this encounter Miscellaneous Notes * Cerner Conversion Note - Historical ProviderMD - 07/10/2019 7:17 AM COMPUTER COMPOSITOR Pre Procedure Adult Entered On: 07/10/2019 7:21 EST Performed On: 07/10/2019 7:17 EST by RONNY BLISS RN Height and Weight, Clinical Dosing Height Source : Stated Height Entry Format : [place] Height, Feet : 5 ft(Converted to: 152 cm, 60 Inch) Height, Inches : 7 Inch(Converted to: 0 ft 7 Inch, 17.78 cm) Clinical Height : 170.18 cm Weight Source : Standing scale Weight Entry Format : [place] Clinical Dosing Weight : 86.36 kg Weight, Pounds : 190 lb Body Surface Area (BSA) : 1.98 m2 Body Mass Index : 29.8 kg/m2 (HI) [place] Body Weight : 65 kg RONNY BLISS RN - 07/10/2019 7:17 EST Health Histories Smoking Status : 10 or more cigarettes (1/2 pack or more)/day in last 30 days Smokeless Tobacco Status : Never Desires Tobacco Cessation Medication : No Reason for No Tobacco Cessation Medication : Refuses FDA approved medications RONNY BLISS RN - 07/10/2019 7:17 EST Social History (As Of: 07/10/2019 07:21:40 EST) Tobacco: 10 or more cigarettes (1/2 pack or more)/day in last 30 days Smoking Status. Never Smokeless Tobacco Status. None Smokeless Tobacco Use History. Years of Use: 24. Packs/Tins Daily: 2. (Last Updated: 04/18/2018 11:37:47 EDT by CLARI PARKER RN) 10 or more cigarettes (1/2 pack or more)/day in last 30 days Smoking Status. (Last Updated: 07/10/2019 07:16:28 EST by RONNY BLISS RN) Alcohol: Alcohol Use History No. (Last Updated: 10/30/2017 15:16:00 EDT by CLARI PARKER RN) Alcohol Use History Yes. Date/Time of Last Drink: 5-6 beers a day. Alcohol Use Frequency Daily. (Last Updated: 11/02/2017 10:57:[address] RN) Alcohol Use History Yes. Days/Week: 2. # Drinks/Day: 1. Alcohol Use Frequency Weekly. (Last Updated: 07/10/2019 07:16:12 EST by RONNY BLISS RN) Substance Abuse: Drug Use Hx: No. (Last Updated: 11/02/2017 10:57:[address] RN) Nutrition/Health: Regular (Last Updated: 04/18/2018 11:37:53 EDT by CLARI PARKER RN) Home/Environment: Lives with Spouse. Living situation: Home/Independent. Alcohol abuse in household: No. Substance abuse in household: No. Smoker in household: No. Family/Friends available for support: No. (Last Updated: 04/18/2018 11:38:13 EDT by CLARI PARKER RN) Infectious Disease History Infectious Disease History : Chicken pox/Shingles, Measles, Mumps Isolation Needed : Standard Fever/Chills Last 48 Hours : No Travel To Regions with Travel Advisories : No Travel Outside [place] Within Last 30 Days : No Contact With Traveler to Advisory Region : No Tuberculosis Symptoms : None RONNY BLISS RN - 07/10/2019 7:17 EST Anesthesia/Transfusion History Family History of Anesthesia Reaction : No prior transfusion(s) Transfusion History : Prior anesthesia without reaction Family History of Anesthesia Reaction : None RONNY BLISS RN - 07/10/2019 7:17 EST Functional Assessment Living Situation : Home Patient Lives With : Spouse Persons Assisting Patient at Home : Spouse Current Daily Living Assistance : None Sensory Deficits : None Current Home Treatments : None RONNY BLISS RN - 07/10/2019 7:17 EST [place] Suicide Severity Rating Scale (C-SSRS) CSSRS Past Month Wish to be : No CSSRS Past Month Suicidal Thoughts : No CSSRS Lifetime Suicide Behavior : No Suicide Severity Rating Score : 0 Suicide Severity Rating : No Additional Care Required at this time RONNY BLISS RN - 07/10/2019 7:17 EST Psychosocial History Do You Have a History of the Following? : Patient denies history Currently in Unsafe Situation : No RONNY BLISS RN - 07/10/2019 7:17 EST Advance Directive Patient has Advance Directive *Q : No, patient refuses Advance Directive information RONNY BLISS RN - 07/10/2019 7:17 EST General Info Preferred Name : Hugo Arrived From : Home Mode of Arrival on Unit : Ambulatory Support Person/Patient Stabilizer Operator : Yes Support Person/Pt Rep Name : Faviola Support Person/Pt Rep Contact Information : [phone] Want Family/Rep/Phys Notified of Admit : No Emergency Contact #1 : Faviola Brown Emergency Contact #1 Emergency Contact #1 Relationship : Emergency Contact #2 : . Emergency Contact #2 Phone Number : . Emergency Contact #2 Relationship : . Information Obtained From : Patient Primary Language : [place] Islander Preferred Communication Mode : Verbal Communication Barrier : None RONNY BLISS RN - 07/10/2019 7:17 EST Vital Measurements Temperature Source : Oral Temperature Mode : Fahrenheit Temperature, Fahrenheit : 98.4 Deg F Clinical Temperature, C : 36.9 Deg C Peripheral Pulse Rate : 64 bpm Pulse Rhythm : Regular Respiratory Rate : 16 Breaths/Min Blood Pressure Source : Non-Invasive BP Device Blood Pressure Position : Sitting Systolic Blood Pressure : 118 mmHg Diastolic Blood Pressure : 73 mmHg Oxygen Saturation : 94 % Oxygen Therapy Mode : Room air RONNY BLISS RN - 07/10/2019 7:17 EST Sleep Apnea Risk Assmt Hx of Obstructive Sleep Apnea Diagnosis : No Snore Loudly : No Tired, Fatigued, or Sleepy During Day : No Observed Stopping Breathing During Sleep : No Have/Are Being Treated for Hypertension : No BMI Greater Than 35 kg/m2 : No Age over 50 Years Old : Yes Neck Circumference Greater Than 40 cm : Yes Gender Male : Yes STOP-BANG Sleep Apnea Risk Level Score : 3 RONNY BLISS RN - 07/10/2019 7:17 EST Tylor Scale [place] Sensory Perception : No impairment [place] Moisture : Rarely moist [place] Activity : Walks frequently [place] Mobility : Slightly limited [place]yl[place] Nutrition : Adequate [place]yl[place] Friction and Shear : No apparent problem [place]yl[place] Score : 21 RONNY BLISS RN - 07/10/2019 7:17 EST Fall Risk Scales ABCs Fall Injury Risk Identification : Bones ABC Fall Injury Risk : Moderate to high injury risk Injury Moderate to High Risk Interventions : Supervise toileting as indicated, Transport methods appropriate to patient, Wrist band (fall risk) on per policy BENITEZ Hx Falls Immediate/Within 3 Months : No Benitez Secondary Diagnosis : Yes BENITEZ Use of Ambulatory Aid : None BENITEZ IV Therapy or IV Access : Yes Benitez Gait/Transferring : Normal, bedrest, immobile Benitez Mental Status : Oriented to own ability Benitez Fall Risk Score : 35 BENITEZ Fall Scale Risk Level : 25-45 Medium Risk [place] Fall Interventions : Adequate lighting, Bed in low position, Call device within reach, Non-slip footwear, Personal items within reach, Reinforced to call for assistance before getting out of bed, Room free of clutter/spills, Upper side-rails up, Wheels locked, Wires/Cords secured Fall Risk Scale Calc Temp : 0 RONNY BLISS RN - 07/10/2019 7:17 EST Education Topics, Day of Surgery DayofSurgery Education Grid Anesthesia/Sedation : Verbalizes understanding Fall Risks : Verbalizes understanding Family Instructions : Verbalizes understanding IV's : Verbalizes understanding Medication Instructions : Verbalizes understanding Pain Management : Verbalizes understanding Plan of Care : Verbalizes understanding Responsible Adult : Verbalizes understanding RONNY BLISS RN - 07/10/2019 7:17 EST Valuables and Belongings Valuables and Belongings : Clothing Clothing : Common streetwear Clothing Disposition : With family RONNY BLISS RN - 07/10/2019 7:17 EST documented in this encounter Plan of Treatment Not on file documented as of this encounter Visit Diagnoses Not on filedocumented in this encounter
--- OUTSIDE RECORDS SUMMARY | 2024-12-30 08:32 | XMS_ITS | Encounter Summary ---
Author Organization [employer] Address [address] [place] [address] Care Team Providers Care Architectural Drafter Name Role Phone Unavailable Primary Care Provider Unavailabl e Encounter Details Date Type Department Care Team (Late st Contact Info) Description 07/10/2019 Transcribed Document [facility] [place] Medicine [facility] [place] [address] ProviderBrigida MD [address] [place] [address] Social History Tobacco Use Types Packs/Day Years Used Date Smoking Tobacco: Never Assessed Sex and Gender Information Value Date Recorded Sex Assigned at Male 01/17/2022 8:17 PM CDT Legal Sex Male 8:17 PM CDT Gender Identity Male 01/17/2022 8:17 PM CDT Sexual Orientation Not on file documented as of this encounter Miscellaneous Notes * Cerner Conversion Note - Historical ProviderMD - 07/10/2019 7:57 AM SOLUTION LEAD [facility] Summary Primary Physician: SURY SHARMA MD-ORGenia Finalized Date/Time: 07/10/19 09:18:01 Pt. Name: HUGO AGUILAR JR, D.O.B./Sex: 1955 Male Med Rec #: [id number] Physician: SURY SHARMA MD-ORT Financial #: [id number] Pt. Type: O Room/Bed: Admit/Disch: 07/10/19 05:55:00 - Institution: [facility] OR PACU Case Times Entry 1 In PACU I 07/10/19 08:26:00 Ready for PACU 07/10/19 09:00:00 Discharge Discharge from PACU 07/10/19 09:00:00 I Last Modified By: Mariah Guerra, RN 07/10/19 09:17:59 [facility] OR PACU Case Times Audit 07/10/19 09:17:59 Legislators: CARRIEC Modifier: CARRIEC 1 <*> Ready for PACU Discharge 07/10/19 08:56:00 1 <*> Discharge from PACU I 07/10/19 08:56:00 07/10/19 08:49:40 Legislators: CARRIEC Modifier: CARRIEC <+> 1 Discharge from PACU I Finalized By: Mariah Guerra RN Document Signatures Signed By: Mariah Guerra RN 07/10/19 09:18 Electronically signed by Katlin Maldonado [employer] Cerner at 11/06/2022 6:04 PM CDT documented in this encounter Plan of Treatment Not on file documented as of this encounter Visit Diagnoses Not on filedocumented in this encounter
--- OUTSIDE RECORDS SUMMARY | 2024-12-30 08:32 | XMS_ITS | Encounter Summary ---
Author Organization [employer] Address [address] [place] [address] Care Team Providers Care Attorney General Name Role Phone Unavailable Primary Care Provider Unavailabl e Encounter Details Date Type Department Care Team (Late st Contact Info) Description 07/10/[address] [facility] [place] [facility] [place] [address] ProviderBrigida MD [address] [place] [address] Social History Tobacco Use Types Packs/Day Years Used Date Smoking Tobacco: Never Assessed Sex and Gender Information Value Date Recorded Sex Assigned at Male 01/17/2022 8:17 PM CDT Legal Sex Male 8:17 PM CDT Gender Identity Male 01/17/2022 8:17 PM CDT Sexual Orientation Not on file documented as of this encounter Miscellaneous Notes * Cerner Conversion Note - Brigida ProviderMD - 07/10/2019 9:20 AM CLIN APPLICATION SPECIALIST [address] [address] HUGO AGUILAR JR :1955 Visit Time:07/10/2019 What to do next Your Diagnosis Chondromalacia, right knee, Chondromalacia, right knee Instructions From Your Care Team Weight bearing as tolerated, use cane or crutches if needed. Keep dressing clean and dry for at least 2 days. Resume all home medications. Usual diet as tolerated. [place] 10/325mg 1 tablet every 6 hours as needed for pain- next dose due @ 3:30pm today 07/10/19. Follow-Up Appointments Follow Up with SURY SHARMA MD-ORT When 07/21/2019 02:00 PM EST Where: [facility] [address] FLOOR [place] [id number]- Medications What How Much When Instructions Next [...] activities are safe for you. ??? Take yghp-cwv-pdomosp and prescription medicines only as told by [...] 12/28/2017 Document Revised: 03/07/2018 Document Reviewed: 12/28/2017 [employer] Interactive Patient Education ?? 2019 [employer] General Anesthesia, Adult, Care After This [...] activities are safe for you. ??? Take cuss-dkl-tcrsfiw and prescription medicines only as told by [...] 10/15/2001 Document Revised: 02/22/2018 Document Reviewed: 02/22/2018 [employer] Interactive Patient Education ?? 2019 [employer] Knee Arthroscopy, Care After Refer to [...] activities are safe for you. ??? Perform fywkg-zc-kxdzax exercises only as directed by your health [...] 01/26/2006 Document Revised: 12/08/2016 Document Reviewed: 07/05/2015 [employer] Interactive Patient Education ?? 2018 [employer]. acetaminophen and hydrocodone (a SEET a MIN oh fen and laurie droe KOE done) Hycet, Lorcet, [place], Verdrocet, Vicodin, Xodol, Zamicet What is the [...] may report side effects to FDA at 6-938-KZH-1111. What other drugs will affect acetaminophen and [...] affect acetaminophen and hydrocodone, including prescription and njkn-gny-tswvgrk medicines, vitamins, and herbal products. Not all [...] to ensure that the information provided by [employer]. ('[employer]') is accurate, up-to-date, and complete, but no guarantee is made to that effect. Drug information contained herein may be time sensitive. [employer] information has been compiled for use by healthcare practitioners and consumers in the [place] and therefore [employer] does not warrant that uses outside of the [place] are appropriate, unless specifically indicated otherwise. [employer] drug information does not endorse drugs, diagnose patients or recommend therapy. [employer] drug information is an informational resource designed [...] with your doctor, nurse or pharmacist. Copyright 2051-1211 [employer]. Version: 15.02. Revision Date: 05/27/2018. Emergency Awareness [...] Assistance with quitting is available by contacting 8-107-CPGX-NOW. This is a free resource providing counseling, [...] was given the opportunity to ask questions. Patient/Physician Vice President Name: Patient/Physician Vice President Signature: Relationship to Patient: Clinician/Hospital Physician Vice President Signature: Date: documented in this encounter Plan of Treatment Not on file documented as of this encounter Visit Diagnoses Not on filedocumented in this encounter
--- OUTSIDE RECORDS SUMMARY | 2024-12-30 08:32 | XMS_ITS | Encounter Summary ---
Author Organization [facility] Address [address] [place] [address] Care Team Providers Care Special Forces Specialist Name Role Phone Zhao Harris MD Primary Care Provider [phone] Encounter Details Date Type Department Care Team ([facility] st Contact Info) Description 12/12/2024 Orders Only PAV CC Hematology/BMT and Cellular Therapy Program [address] [place] [address] [place] [address] Gricel Gonzalez RN [facility] Social History Tobacco Use [...] drink first t manav in the morning (EYE-INSURANCE SALES ASSOCIATE) to steady your nerves or to [...] CC Hematology/BMT and Cellular Therapy Program [address] [place] [phone] 01/06/2025 9:00 AM EDT Procedure Visit P[facility] CC Hematology/BMT and Cellular Therapy Program [address] [place] [phone] Kierra Novak, PUG MILL OPERATOR HELPER 800 [facility] [address] [place] [phone] 01/13/2025 9:30 AM EDT Clinical Support PAV CC Hematology/BMT and Cellular Therapy Program [address] [place] [address] [phone] 01/13/2025 10:00 AM EDT Office Visit P[facility] CC Hematology/BMT and Cellular Therapy Program [address] [place] [address] [phone] Isaura Wynn, PUG MILL OPERATOR HELPER 800 [facility] [address] [place] [phone] 01/13/2025 11:30 AM EDT Appointment P[facility] H Infusion 800 [place] [phone] 01/14/2025 2:00 PM EDT Appointment [facility] Infusion [address] [place] [phone] 01/15/2025 2:00 PM EDT Appointment [facility] Infusion [address] [place] [address] 01/16/2025 2:00 PM EDT Appointment [facility] Infusion [address] [place] [address] 01/17/2025 2:00 PM EDT Appointment [facility] Infusion [address] [place] [address] 01/18/2025 2:00 PM EDT Appointment [facility] Infusion [address] [place] [address] 01/19/2025 2:00 PM EDT Appointment [facility] H Infusion 800 [place] [address] 03/10/2025 11:20 AM EDT Office Visit Pav CC Head, Neck & Respiratory 800 [facility], 2nd [place] [address] Elsa Razo, PUG MILL OPERATOR HELPER 800 [place] [address] documented as of this encounter Visit Diagnoses [...] documented as of this encounter Care Teams Special Forces Specialist Relationship Specialty Start Date End Date Zhao Harris MD [address] [address] PCP - General 12/03/20 documented as of this encounter
--- OUTSIDE RECORDS SUMMARY | 2024-12-30 08:32 | XMS_ITS | Encounter Summary ---
Author Organization [facility] Address [address] 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) Virgen Vargas MD [address] [address] Phone: tel:[phone] fax: [facility] Multidisciplinary Oncology Clinic [address] [place] [phone] Phone: tel: fax: Referral ID Status Reason Start Date Expiration Date Visits Requested Visits Authorized [id number] Authorized Specialty Services Required 12/11/2024 06/12/2026 1 1 Scheduling Instructions AML, evaluation for clinical trials * Consultation (Routine) - Authorized Specialty Diagnoses / Procedures Referred By Justice mcgee Referred To Contact Medical Oncology Diagnoses 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) (Primary Dx) Social History Tobacco Use [...] drink first t manav in the morning (EYE-LANGUAGE TEACHER) to steady your nerves or to [...] Hematology/BMT and Cellular Therapy Program [address] [place] [phone] 01/06/2025 9:00 AM EDT Procedure Visit PAV CC Hematology/BMT and Cellular Therapy Program [address] [phone] Kierra Novak, ANIMAL CARE WORKER 800 [facility] [address] [place] [phone] 01/13/2025 9:30 AM EDT Clinical Support PAV CC Hematology/BMT and Cellular Therapy Program [address] [phone] 01/13/2025 10:00 AM EDT Office Visit PAV CC Hematology/BMT and Cellular Therapy Program [address] [phone] Isaura Wynn, ANIMAL CARE WORKER 800 [facility] [address] [place] [phone] 01/13/2025 11:30 AM EDT Appointment [facility] H Infusion 800 [place] [address] 01/14/2025 2:00 PM EDT Appointment [facility] H Infusion 800 [place] [phone] 01/15/2025 2:00 PM EDT Appointment [facility] H Infusion 800 [place] [phone] 01/16/2025 2:00 PM EDT Appointment [facility] Infusion 800 [place] [address] 01/17/2025 2:00 PM EDT Appointment [facility] Infusion 800 [place] [address] 01/18/2025 2:00 PM EDT Appointment [facility] H Infusion 800 [place] [phone] 01/19/2025 2:00 PM EDT Appointment [facility] H Infusion 800 [place] [address] 03/10/2025 11:20 AM EDT Office Visit Pav CC Head, Neck & Respiratory 800 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) 1 Occurrences starting 12/11/2024 until 06/13/2026 documented as of this encounter Visit Diagnoses Diagnosis 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
--- OUTSIDE RECORDS SUMMARY | 2024-12-30 08:32 | XMS_ITS | Encounter Summary ---
Author Organization [facility] Address [address] [place] [address] Care Team Providers Care International Editorial Producer Name Role Phone Zhao Harris MD Primary Care Provider [phone] Encounter Details Date Type Department Care Team ([facility] st Contact Info) Description 12/16/2024 Orders Only PAV CC Hematology/BMT and Cellular Therapy Program [address] [phone] Christina Ramos MD 800 [facility] [address] [place] [address] Myelodysplasia (myelodysplastic syndrome) (CMS/HCC) (Primary Dx) Social [...] first t manav in the morning (EYE-CRITICAL CARE EDUCATOR) to steady your nerves or to get [...] Date Type Department Care Team ([facility] [place] Contact Info) Description 01/06/2025 8:30 AM EDT Clinical Support PAV CC Hematology/BMT and Cellular Therapy Program [address] [place] [phone] 01/06/2025 9:00 AM EDT Procedure Visit PAV CC Hematology/BMT and Cellular Therapy Program [address] [place] [phone] Kierra Novak, WATER SERVER 800 [facility] [address] [place] [phone] 01/13/2025 9:30 AM EDT Clinical Support PAV CC Hematology/BMT and Cellular Therapy Program [address] [place] [phone] 01/13/2025 10:00 AM EDT Office Visit PAV CC Hematology/BMT and Cellular Therapy Program [address] [place] [phone] Isaura Wynn, WATER SERVER 800 [facility] [address] [place] [phone] 01/13/2025 11:30 AM EDT Appointment P[facility] H Infusion 800 [place] [phone] 01/14/2025 2:00 PM EDT Appointment [facility] H Infusion [address] [place] [address] 01/15/2025 2:00 PM EDT Appointment [facility] H Infusion [address] [place] [address] 01/16/2025 2:00 PM EDT Appointment [facility] H Infusion [address] [place] [address] 01/17/2025 2:00 PM EDT Appointment [facility] H Infusion [address] [place] [address] 01/18/2025 2:00 PM EDT Appointment [facility] H Infusion [address] [place] [address] 01/19/2025 2:00 PM EDT Appointment [facility] H Infusion [address] [place] [address] 03/10/2025 11:20 AM EDT Office Visit Pav CC Head, Neck & Respiratory 800 [facility], 2nd [place] [address] Elsa Razo, WATER SERVER 800 [place] [address] Scheduled Orders Name Type Priority Associated Diagnoses Orde r Schedule CBC and differential Lab Routine Myelodysplasia (myelodysplastic syndrome) ([facility]) Expected: 12/23/2024, Expires: 12/23/2025 Comprehensive metabolic panel Lab Routine Myelodysplasia (myelodysplastic syndrome) ([facility]) Expected: 12/23/2024, Expires: 12/23/2025 CBC and differential Lab Routine Myelodysplasia (myelodysplastic syndrome) ([facility]) Expected: 12/25/2024, Expires: 12/25/2025 CBC and differential Lab Routine Myelodysplasia (myelodysplastic syndrome) ([facility]) Expected: 12/27/2024, Expires: 12/27/2025 CBC and differential Lab Routine Myelodysplasia (myelodysplastic syndrome) ([facility]) Expected: 12/30/2024, Expires: 12/30/2025 Comprehensive metabolic panel Lab Routine Myelodysplasia (myelodysplastic syndrome) ([facility]) Expected: 12/30/2024, Expires: 12/30/2025 CBC and differential Lab Routine Myelodysplasia (myelodysplastic syndrome) ([facility]) Expected: 01/01/2025, Expires: 01/01/2026 CBC and differential Lab Routine Myelodysplasia (myelodysplastic syndrome) ([facility]) Expected: 01/03/2025, Expires: 01/03/2026 CBC and differential Lab Routine Myelodysplasia (myelodysplastic syndrome) ([facility]) Expected: 01/06/2025, Expires: 01/06/2026 Comprehensive metabolic panel Lab Routine Myelodysplasia (myelodysplastic syndrome) ([facility]CC) Expected: 01/06/2025, Expires: 01/06/2026 CBC and differential Lab Routine Myelodysplasia (myelodysplastic syndrome) ([facility]) Expected: 01/08/2025, Expires: 01/08/2026 CBC and differential Lab Routine Myelodysplasia (myelodysplastic syndrome) ([facility]) Expected: 01/10/2025, Expires: 01/10/2026 documented as of this encounter Results * (ABNORMAL) CBC and differential (12/20/2024 9:00 AM EDT) WBC Count 0.59(LL) 3.70 - 10.30 10*3/uL LAB HEMATOLOGY METHOD 12/20/2024 10:25 AM EDT [facility] RBC Count 2.46(L) 4.60 - 6.10 10*6/uL LAB HEMATOLOGY METHOD 12/20/2024 10:25 AM EDT [facility] HGB 7.8(L) 13.7 - 17.5 g/dL LAB HEMATOLOGY METHOD 12/20/2024 10:25 AM EDT [facility] HCT 22.0(L) 40.0 - 51.0 % LAB HEMATOLOGY METHOD 12/20/2024 10:25 AM EDT [facility] Platelet Count 22(L) 155 - 369 10*3/uL LAB HEMATOLOGY METHOD 12/20/2024 10:25 AM EDT [facility] MCV 89 79 - 98 fL LAB HEMATOLOGY METHOD 12/20/2024 10:25 AM EDT [facility] MCH 31.7 26.0 - 32.0 pg LAB HEMATOLOGY METHOD 12/20/2024 10:25 AM EDT [facility] MCHC 35.5 30.7 - 35.5 g/dL LAB HEMATOLOGY METHOD 12/20/2024 10:25 AM EDT [facility] RDW 16.0(H) 11.5 - 14.5 % LAB HEMATOLOGY METHOD 12/20/2024 10:25 AM EDT [facility] MPV 11.3 8.8 - 12.5 fL LAB HEMATOLOGY METHOD 12/20/2024 10:25 AM EDT [facility] nRBC 0.0 <=0.0 per 100 WBCs LAB HEMATOLOGY METHOD 12/20/2024 10:25 AM EDT [facility] Differential Type Automated LAB HEMATOLOGY METHOD 12/20/2024 10:25 AM EDT [facility] Neutrophils % 5 % LAB HEMATOLOGY METHOD 12/20/2024 10:25 AM EDT [facility] Lymphocytes % 92 % LAB HEMATOLOGY METHOD 12/20/2024 10:25 AM EDT [facility] Monocytes % 3 % LAB HEMATOLOGY METHOD 12/20/2024 10:25 AM EDT [facility] Eosinophils % 0 % LAB HEMATOLOGY METHOD 12/20/2024 10:25 AM EDT [facility] Basophils % 0 % LAB HEMATOLOGY METHOD 12/20/2024 10:25 AM EDT [facility] Immature Granulocytes % 0 % LAB HEMATOLOGY METHOD 12/20/2024 10:25 AM EDT [facility] Neutrophils Absolute 0.03(LL) 1.60 - 6.10 10*3/uL LAB HEMATOLOGY METHOD 12/20/2024 10:25 AM EDT [facility] Lymphocytes Absolute 0.54(L) 1.20 - 3.90 10*3/uL LAB HEMATOLOGY METHOD 12/20/2024 10:25 AM EDT [facility] Monocytes Absolute 0.02(L) 0.30 - 0.90 10*3/uL LAB HEMATOLOGY METHOD 12/20/2024 10:25 AM EDT [facility] Eosinophils Absolute 0.00 0.00 - 0.50 10*3/uL LAB HEMATOLOGY METHOD 12/20/2024 10:25 AM EDT [facility] Basophils Absolute 0.00 0.00 - 0.10 10*3/uL LAB HEMATOLOGY METHOD 12/20/2024 10:25 AM EDT [facility] Immature Granulocytes Absolute 0.00 0.00 - 0.06 10*3/uL LAB HEMATOLOGY METHOD 12/20/2024 10:25 AM EDT [facility] Blood Blood sample taken from central line / Unknown (Central Line) Existing Catheter / Unknown 12/20/2024 9:00 AM EDT 12/20/2024 9:13 AM EDT Narrative [facility] - 12/20/2024 10:25 AM EDT Therapeutic decision making should be based on absolute values, rather than percentages. us Christina Ramos MD LAB BLOOD ORDERABLES Final Resul t [facility] [address] [place] [address] * (ABNORMAL) CBC and differential (12/18/2024 9:14 AM EDT) WBC Count 0.51(LL) 3.70 - 10.30 10*3/uL LAB HEMATOLOGY METHOD 12/18/2024 10:49 AM EDT [facility] RBC Count 2.50(L) 4.60 - 6.10 10*6/uL LAB HEMATOLOGY METHOD 12/18/2024 10:49 AM EDT [facility] HGB 8.1(L) 13.7 - 17.5 g/dL LAB HEMATOLOGY METHOD 12/18/2024 10:49 AM EDT [facility] HCT 21.9(L) 40.0 - 51.0 % LAB HEMATOLOGY METHOD 12/18/2024 10:49 AM EDT [facility] Platelet Count 6(LL) 155 - 369 10*3/uL LAB HEMATOLOGY METHOD 12/18/2024 10:49 AM EDT [facility] MCV 88 79 - 98 fL LAB HEMATOLOGY METHOD 12/18/2024 10:49 AM EDT [facility] MCH 32.4(H) 26.0 - 32.0 pg LAB HEMATOLOGY METHOD 12/18/2024 10:49 AM EDT [facility] MCHC 37.0(H) 30.7 - 35.5 g/dL LAB HEMATOLOGY METHOD 12/18/2024 10:49 AM EDT [facility] RDW 16.7(H) 11.5 - 14.5 % LAB HEMATOLOGY METHOD 12/18/2024 10:49 AM EDT [facility] MPV LAB HEMATOLOGY METHOD 12/18/2024 10:49 AM EDT [facility] Comment:Not Measured nRBC 0.0 <=0.0 per 100 WBCs LAB HEMATOLOGY METHOD 12/18/2024 10:49 AM EDT [facility] Differential Type Automated LAB HEMATOLOGY METHOD 12/18/2024 10:49 AM EDT [facility] Neutrophils % 6 % LAB HEMATOLOGY METHOD 12/18/2024 10:49 AM EDT [facility] Lymphocytes % 90 % LAB HEMATOLOGY METHOD 12/18/2024 10:49 AM EDT [facility] Monocytes % 4 % LAB HEMATOLOGY METHOD 12/18/2024 10:49 AM EDT [facility] Eosinophils % 0 % LAB HEMATOLOGY METHOD 12/18/2024 10:49 AM EDT [facility] Basophils % 0 % LAB HEMATOLOGY METHOD 12/18/2024 10:49 AM EDT [facility] Immature Granulocytes % 0 % LAB HEMATOLOGY METHOD 12/18/2024 10:49 AM EDT [facility] Neutrophils Absolute 0.03(LL) 1.60 - 6.10 10*3/uL LAB HEMATOLOGY METHOD 12/18/2024 10:49 AM EDT [facility] Lymphocytes Absolute 0.46(L) 1.20 - 3.90 10*3/uL LAB HEMATOLOGY METHOD 12/18/2024 10:49 AM EDT [facility] Monocytes Absolute 0.02(L) 0.30 - 0.90 10*3/uL LAB HEMATOLOGY METHOD 12/18/2024 10:49 AM EDT [facility] Eosinophils Absolute 0.00 0.00 - 0.50 10*3/uL LAB HEMATOLOGY METHOD 12/18/2024 10:49 AM EDT [facility] Basophils Absolute 0.00 0.00 - 0.10 10*3/uL LAB HEMATOLOGY METHOD 12/18/2024 10:49 AM EDT [facility] Immature Granulocytes Absolute 0.00 0.00 - 0.06 10*3/uL LAB HEMATOLOGY METHOD 12/18/2024 10:49 AM EDT [facility] Blood Blood sample taken from central line / Unknown Venipuncture / Unknown 12/18/2024 9:14 AM EDT 12/18/2024 9:20 AM EDT Narrative [facility] - 12/18/2024 10:49 AM EDT Therapeutic decision making should be based on absolute values, rather than percentages. us Christina Ramos MD LAB BLOOD ORDERABLES Final Resul t [facility] [address] [place] [address] documented in this encounter Visit Diagnoses Diagnosis [...] documented as of this encounter Care Teams International Editorial Producer Relationship Specialty Start Date End Date Zhao Harris MD [address] [place] [address] [place] [address] PCP - General 12/03/20 documented as of this encounter
--- OUTSIDE RECORDS SUMMARY | 2024-12-30 08:32 | XMS_ITS | Encounter Summary ---
Author Organization [employer] Address [address] [place] [id number] Care Team Providers Care Quarter Lining Smoother Name Role Phone Unavailable Primary Care Provider Unavailabl e Encounter Details Date Type Department Care Team (Late st Contact Info) Description 07/10/2019 Transcribed Document [facility] [place] [address] ProviderBrigida MD [address] [place] [address] Social History Tobacco Use Types Packs/Day Years Used Date Smoking Tobacco: Never Assessed Sex and Gender Information Value Date Recorded Sex Assigned at Male 01/17/2022 8:17 PM CDT Legal Sex Male 8:17 PM CDT Gender Identity Male 01/17/2022 8:17 PM CDT Sexual Orientation Not on file documented as of this encounter Miscellaneous Notes * Cerner Conversion Note - Brigida Vega MD - 07/10/2019 9:18 AM DRIVER GUARD Patient Education Materials Follows: Local Anesthesia, Care After This sheet gives [...] activities are safe for you. ??? Take prwc-iup-wgvgppq and prescription medicines only as told by [...] 12/28/2017 Document Revised: 03/07/2018 Document Reviewed: 12/28/2017 [employer] Patient Education ? 2019 [employer] General Anesthesia, Adult, Care After This [...] activities are safe for you. ??? Take qwbr-lxa-siwcrmm and prescription medicines only as told by [...] 10/15/2001 Document Revised: 02/22/2018 Document Reviewed: 02/22/2018 [employer] Patient Education ? 2019 [employer] Knee Arthroscopy, Care After Refer to [...] and adhesive strips. Follow your health care provider?s instructions about: ? Incision care. ? Bandage [...] activities are safe for you. ??? Perform iczuv-so-hscutn exercises only as directed by your health [...] Leave the ice on for 20 minutes, 2?3 times per day. ??? Raise the injured [...] 01/26/2006 Document Revised: 12/08/2016 Document Reviewed: 07/05/2015 [employer] Patient Education ? 2018 [employer] documented in this encounter Plan of Treatment Not on file documented as of this encounter Visit Diagnoses Not on filedocumented in this encounter
--- OUTSIDE RECORDS SUMMARY | 2024-12-30 08:32 | XMS_ITS | Encounter Summary ---
Author Organization [facility] Address [address] [place] [address] Care Team Providers Care Stemming Machine Operator Name Role Phone Zhao Harris MD Primary Care Provider [phone] Encounter Details Date Type Department Care Team (Latest Contact Info) Description 12/08/2024 Travel Social History Tobacco Use Types Packs/Day [...] drink first t manav in the morning (EYE-INSULATION TECHNICIAN) to steady your nerves or to [...] Team ([facility] st Contact Info) Description 01/06/2025 8:30 AM EDT Clinical Support [facility] Hematology/BMT and Cellular Therapy Program [address] [phone] 01/06/2025 9:00 AM EDT Procedure Visit [facility] CC Hematology/BMT and Cellular Therapy Program [address] [phone] Kierra Novak, REGIONAL CLINICAL RESEARCH ASSOCIATE 800 [facility] [address] [place] [phone] 01/13/2025 9:30 AM EDT Clinical Support [facility] CC Hematology/BMT and Cellular Therapy Program [address] [phone] 01/13/2025 10:00 AM EDT Office Visit [facility] CC Hematology/BMT and Cellular Therapy Program [address] [phone] Isaura Wynn, REGIONAL CLINICAL RESEARCH ASSOCIATE 800 [facility] [address] [place] [phone] 01/13/2025 11:30 AM EDT Appointment [facility] Infusion [address] [place] [phone] 01/14/2025 2:00 PM EDT Appointment [facility] [address] [place] [phone] 01/15/2025 2:00 PM EDT Appointment [facility] [address] [place] [phone] 01/16/2025 2:00 PM EDT Appointment [facility] [address] [place] [phone] 01/17/2025 2:00 PM EDT Appointment [facility] [address] [place] [address] 01/18/2025 2:00 PM EDT Appointment [facility] [address] [place] [address] 01/19/2025 2:00 PM EDT Appointment [facility] [address] [place] [address] 03/10/2025 11:20 AM EDT Office Visit Pav CC Head, Neck & Respiratory 800 [facility], [address]nd [place] [address] Elsa Razo, REGIONAL CLINICAL RESEARCH ASSOCIATE [address] [place] [address] documented as of this encounter Visit Diagnoses [...] documented as of this encounter Care Teams Stemming Machine Operator Relationship Specialty Start Date End Date Zhao Harris MD [address] [place] [phone] PCP - General 12/03/20 documented as of this encounter
--- OUTSIDE RECORDS SUMMARY | 2024-12-30 08:32 | XMS_ITS | Encounter Summary ---
Author Organization [facility] Address [address] [place] [address] Care Team Providers Care Coating Line Worker Name Role Phone Zhao Harris MD Primary Care Provider [phone] Encounter Details Date Type Department Care Team (Latest Contact Info) Description 12/20/2024 Travel Social History Tobacco Use Types Packs/Day [...] first t manav in the morning (EYE-PUBLIC EMPLOYMENT MEDIATOR) to steady your nerves or to get [...] ([facility] st Contact Info) Description 01/06/2025 8:30 AM EDT Clinical Support [facility] Hematology/BMT and Cellular Therapy Program [address] [phone] 01/06/2025 9:00 AM EDT Procedure Visit [facility] Hematology/BMT and Cellular Therapy Program [address] [phone] Kierra Novak, STILL OPERATOR BATCH OR CONTINUOUS 800 [facility] [address] [place] [phone] 01/13/2025 9:30 AM EDT Clinical Support [facility] Hematology/BMT and Cellular Therapy Program [address] [phone] 01/13/2025 10:00 AM EDT Office Visit [facility] Hematology/BMT and Cellular Therapy Program [address] [phone] Isaura Wynn, STILL OPERATOR BATCH OR CONTINUOUS 800 [facility] [address] [place] [phone] 01/13/2025 11:30 AM EDT Appointment [facility] 800 [place] [phone] 01/14/2025 2:00 PM EDT Appointment [facility] [address] [place] [phone] 01/15/2025 2:00 PM EDT Appointment [facility] 800 [place] [phone] 01/16/2025 2:00 PM EDT Appointment [facility] [address] [place] [phone] 01/17/2025 2:00 PM EDT Appointment [facility] 800 [place] [address] 01/18/2025 2:00 PM EDT Appointment [facility] 800 [place] [address] 01/19/2025 2:00 PM EDT Appointment [facility] 800 [place] [address] 03/10/2025 11:20 AM EDT Office Visit [facility] Head, Neck & Respiratory 800 [facility], [address]nd [place] [address] Elsa Razo, STILL OPERATOR BATCH OR CONTINUOUS 800 [place] [address] documented as of this encounter Visit Diagnoses [...] documented as of this encounter Care Teams Coating Line Worker Relationship Specialty Start Date End Date Zhao Harris MD [address] [place] [address] [phone] PCP - General 12/03/20 documented as of this encounter
--- OUTSIDE RECORDS SUMMARY | 2024-12-30 08:32 | XMS_ITS | Encounter Summary ---
Author Organization [employer] Address [address] [place] [address] Care Team Providers Care Zipper Cutter Name Role Phone Unavailable Primary Care Provider Unavailabl e Encounter Details Date Type Department Care Team (Late st Contact Info) Description 07/10/2019 Transcribed Document [facility] [place] [facility] [place] [address] ProviderBrigida MD [address] [place] [address] Social History Tobacco Use Types Packs/Day Years Used Date Smoking Tobacco: Never Assessed Sex and Gender Information Value Date Recorded Sex Assigned at Male 01/17/2022 8:17 PM CDT Legal Sex Male 8:17 PM CDT Gender Identity Male 01/17/2022 8:17 PM CDT Sexual Orientation Not on file documented as of this encounter Miscellaneous Notes * Cerner Conversion Note - Historical ProviderMD - 07/10/2019 8:16 AM WELCOME WAGON HOST/HOSTESS Patient: HUGO AGUILAR JR Age: 63 years Sex: Male : 1955 Associated Diagnoses: None Author: DWAYNE SHARMA MD-ORT Date of Procedure: Preoperative Diagnosis; Right knee medial, lateral, patellofemoral adhesions, loose body. Postoperative Diagnosis: Same. Procedure Performed: Right knee examination under anesthesia, arthroscopy, medial.lateral, patellofemoral compartment debridement. Surgeon: Dwayne Burris???Yanet Mendez EBL: Minimal. Complications: None. Anesthesia: General. Drains/Tubes: None Specimen Sent to Pathology: None Procedure: After appropriate timeout and preoperative marking, the patient was placed in a supine position under endotracheal intubation general anesthesia. The knee was examined. There was full ROM and all ligaments were stable. Portals were preinjected. The knee was then prepped and draped free in the usual manner. Portals were established inferolateral and inferomedial. There was no fluid in the knee. In the medial compartment, we identified an area of minor adhesions. We performed a debridement on this. The prosthetic surfaces were intact and smooth. In the notch the post was intact and no sign of wear. There were no blocks of scar tissue or debris in the notch. In the lateral compartment we found an area of adhesions and a band in the lateral gutter. We performed a debridment on this. The prosthetic surfaces were intact and smooth. In the patellofemoral joint there was normal alignment. The retropatellar surface was smooth and intact. There were no bands of adhesions surrounding the retropatellar surface. The suprapatellar pouch and both gutters were clear. The knee was placed through a full range of motion and no crepits, patellar maltracking or clunking was observed. The knee was then thoroughly irrigated with sterile saline. Instruments were withdrawn. The wounds were closed with nylon. They were appropriately dressed. The patient tolerated the procedure well and was taken to the Recovery Room in stable condition. Dwayne Burris???Yanet Mendez documented in this encounter Plan of Treatment Not on file documented as of this encounter Visit Diagnoses Not on filedocumented in this encounter
--- OUTSIDE RECORDS SUMMARY | 2024-12-30 08:32 | XMS_ITS | Encounter Summary ---
Author Organization 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-PARISH WORKER) to steady your nerves or to [...] Upcoming Encounters Date Type Department Care Team ([facility] st Contact Info) Description 01/06/2025 8:30 AM EDT Clinical Support [facility] Hematology/BMT and Cellular Therapy Program [address] [phone] 01/06/2025 9:00 AM EDT Procedure Visit [facility] Hematology/BMT and Cellular Therapy Program [address] [phone] Kierra Novak, FREEZER TUNNEL OPERATOR 800 [facility] [address] [place] [phone] 01/13/2025 9:30 AM EDT Clinical Support [facility] Hematology/BMT and Cellular Therapy Program [address] [phone] 01/13/2025 10:00 AM EDT Office Visit [facility] Hematology/BMT and Cellular Therapy Program [address] [phone] Isaura Wynn, FREEZER TUNNEL OPERATOR 800 [facility] [address] [place] [phone] 01/13/2025 11:30 AM EDT Appointment [facility] 800 [place] [phone] 01/14/2025 2:00 PM EDT Appointment [facility] [address] [place] [phone] 01/15/2025 2:00 PM EDT Appointment [facility] [address] [place] [phone] 01/16/2025 2:00 PM EDT Appointment [facility] [address] [place] [phone] 01/17/2025 2:00 PM EDT Appointment [facility] [address] [place] [address] 01/18/2025 2:00 PM EDT Appointment [facility] [address] [place] [address] 01/19/2025 2:00 PM EDT Appointment [facility] 800 [place] [address] 03/10/2025 11:20 AM EDT Office Visit [facility] Head, Neck & Respiratory 800 [facility], 2nd [place] [address] Elsa Razo, FREEZER TUNNEL OPERATOR 800 [place] [address] documented as of this encounter Visit Diagnoses [...] documented as of this encounter Care Teams Resolution Agent Relationship Specialty Start Date End Date Zhao Harris MD [address] [place] [address] [phone] PCP - General 12/03/20 documented as of this encounter
--- OUTSIDE RECORDS SUMMARY | 2024-12-30 08:32 | XMS_ITS | Encounter Summary ---
Author Organization [facility] Address [address] [place] [address] Care Team Providers Care Breaker Up Machine Operator Name Role Phone Zhao Harris MD Primary Care Provider [phone] Encounter Details Date Type Department Care Team (Latest Contact Info) Description 12/11/2024 Travel Social History Tobacco Use Types Packs/Day [...] drink first t manav in the morning (EYE-NUT PACKER) to steady your nerves or to [...] Hematology/BMT and Cellular Therapy Program [address] [phone] 01/06/2025 9:00 AM EDT Procedure Visit [facility] Hematology/BMT and Cellular Therapy Program [address] [phone] Kierra Novak, BRIDGE LEVERMAN 800 [facility] [address] [place] [phone] 01/13/2025 9:30 AM EDT Clinical Support [facility] Hematology/BMT and Cellular Therapy Program [address] [phone] 01/13/2025 10:00 AM EDT Office Visit [facility] Hematology/BMT and Cellular Therapy Program [address] [phone] Isaura Wynn, BRIDGE LEVERMAN 800 [facility] [address] [place] [phone] 01/13/2025 11:30 AM EDT Appointment [facility] 800 [place] [phone] 01/14/2025 2:00 PM EDT Appointment [facility] 800 [place] [phone] 01/15/2025 2:00 PM EDT Appointment [facility] 800 [place] [phone] 01/16/2025 2:00 PM EDT Appointment [facility] 800 [place] [phone] 01/17/2025 2:00 PM EDT Appointment [facility] 800 [place] [address] 01/18/2025 2:00 PM EDT Appointment [facility] 800 [place] [address] 01/19/2025 2:00 PM EDT Appointment [facility] 800 [place] [address] 03/10/2025 11:20 AM EDT Office Visit [facility] Head, Neck & Respiratory 800 [facility], [address] [place] [address] Elsa Razo, BRIDGE LEVERMAN 800 [place] [address] documented as of this encounter Visit Diagnoses [...] documented as of this encounter Care Teams Breaker Up Machine Operator Relationship Specialty Start Date End Date Zhao Harris MD [address] [place] [address] [phone] PCP - General 12/03/20 documented as of this encounter
--- OUTSIDE RECORDS SUMMARY | 2024-12-30 08:32 | XMS_ITS | Encounter Summary ---
Author Organization [employer] Address [address] [place] [address] Care Team Providers Care Core Driller Helper Name Role Phone Unavailable Primary Care Provider Unavailabl e Encounter Details Date Type Department Care Team (Late st Contact Info) Description 07/10/2019 Transcribed Document [facility] [place] Family Medicine [facility] [place] [address] ProviderBrigida MD [address] [place] [address] Social History Tobacco Use Types Packs/Day [...] - Historical ProviderMD - 07/10/2019 7:57 AM RN FLOAT [facility] OR PostOp Summary Primary Physician: SURY SHARMA MD-ORGenia Finalized Date/Time: 07/10/19 10:03:33 Pt. Name: HUGO AGUILAR JR, D.O.B./Sex: 1955 Male Med Rec #: [id number] Physician: SURY SHARMA MD-ORT Financial #: [id number] Pt. Type: O Room/Bed: Admit/Disch: 07/10/19 05:55:00 - Institution: [facility] PostOp Case Times Entry 1 In PACU II 07/10/19 09:10:00 Ready for PACU II 07/10/19 10:00:00 Discharge Discharge from PACU 07/10/19 10:00:00 II Last Modified By: Laquita Romero RN 07/10/19 10:03:30 [facility] PostOp Case Times Audit 07/10/19 10:03:30 Mortgage Collector: [id number] Modifier: [id number] <+> 1 Ready for PACU II Discharge <+> 1 Discharge from PACU II Finalized By: Laquita Romero RN Document Signatures Signed By: Laquita Romero RN 07/10/19 10:03 documented in this encounter Plan of Treatment Not on file documented as of this encounter Visit Diagnoses Not on filedocumented in this encounter
--- OUTSIDE RECORDS SUMMARY | 2024-12-30 08:33 | XMS_ITS | Encounter Summary ---
Author Organization [employer] Address [address] [place] [address] Care Team Providers Care Tanning Wheel Filler Name Role Phone Unavailable Primary Care Provider Unavailabl e Encounter Details Date Type Department Care Team (Late st Contact Info) Description 07/10/2019 Transcribed Document [facility] [place] Medicine [facility] [place] [address] ProviderBrigida MD [address] [place] [address] Social History Tobacco Use Types Packs/Day Years Used Date Smoking Tobacco: Never Assessed Sex and Gender Information Value Date Recorded Sex Assigned at Male 01/17/2022 8:17 PM CDT Legal Sex Male 8:17 PM CDT Gender Identity Male 01/17/2022 8:17 PM CDT Sexual Orientation Not on file documented as of this encounter Miscellaneous Notes * Cerner Conversion Note - Brigida ProviderMD - 07/10/2019 7:04 AM DRY CLEANER APPRENTICE Patient: HUGO AGUILAR JR Age: 63 years Sex: Male : 1955 Associated Diagnoses: None Author: DWAYNE SHARMA MD-ORT HISTORY AND PHYSICAL DATE: Patient: Hugo Aguilar Date of : 1955 Patient Number: [id number] History of Present Illness Hugo is here for follow-up of his right knee replacement. He is 14 months of total knee replacement. He is developing pain in the knee on the lateral side. A workup showed no sign of infection with synovitis or. He has had a bone scan. He had a sudden onset of pain a few days ago which made him go to a cane. He feels grinding along the lateral side of the knee. he had another onset of pain last January while climbing in and out of a combine when he felt a popping sensation. subsequent radiographs of shown an avulsion and some retraction of the inferior pole of the patella fracture. Current Medication ??? Aspirin 81 MG Oral Tablet Delayed Release take as directed 0 days, 0 refills ??? Atorvastatin Calcium 40MG Oral Tablet 40 MG take as directed 90 days, 0 refills ??? Bisoprolol Fumarate 5 MG Oral Tablet take as directed 0 days, 0 refills ??? Gabapentin 300 MG Oral Capsule 0 days, 0 refills ??? Lipitor 80 MG Oral Tablet take as directed 0 days, 0 refills Past Medical/Surgical History Reported: Medical: Arthritic joint problems. Diagnoses: Heart disease HIGH CHOLESTEROL. Surgical: ??? Total knee arthroplasty Social History Current diet: No recent change in diet. Behavioral: Caffeine use and tobacco use. Not a current smoker. Smoking status: Current everyday smoker. Alcohol: Not using alcohol. Drug Use: Not using drugs. Habits: Not exercising regularly. Allergies ??? No Known Allergies Family History No significant family history Review Of Systems Systemic: Not feeling tired (fatigue), no recent weight loss, and no recent weight gain. No edema. Head: No headache and no sinus pain. Eyes: No vision problems. Vision problems. No glaucomatous visual field defect. Otolaryngeal: No hearing loss and no tinnitus. No nasal symptoms. Cardiovascular: No chest pain or discomfort and no palpitations. Pulmonary: No daytime asthma symptoms, no cough, and no chronic cough. No wheezing. Gastrointestinal: No heartburn and no abdominal pain. Endocrine: No hot flashes and no muscle weakness. Hematologic: No easy bleeding and no tendency for easy bruising. Musculoskeletal: No lower back pain. No soft tissue swelling. Pain localized to one or more joints. Neurological: No dizziness, no convulsions, and no numbness. Psychological: No anxiety, no emotional lability, no depression, and no insomnia. Not crying for no reason. Skin: No dry skin, no rash, and no ulcers. Allergic and Immunologic: No complaint of seasonal allergic reaction. Physical Findings Height 67 in 60 - 80 Weight 180 lbs 123 - 215 Body Mass Index 28.2 kg/m2 Body Surface Area 1.93 m2 The patient he is using a cane for ambulation. his is present. He has normal mood, affect and orientation. He has a well-groomed appearance. Chest is clear, heart is clear, lungs are clear. The knee fully extends without a lag. It flexes to 120??. mild to moderate effusion. No redness or heat. Tenderness over the inferior pole of the patella but much more laterally with a grinding sensation during range of motion. Skin is intact. Wound is well-healed. Grossly normal motor and sensory function. Grossly in normal vascular status. Tests Bone scan shows activity although reported as possible infection or loosening is reasonable for one year following surgery. Plan We explained to him that there appears to be some mechanical issues with his knee accompanying the pain especially in the lateral compartment. He is over a year from surgery and I believe the scar tissue has matured. I think a simple approach to this would be an arthroscopy for arthrofibrosis and debridement. He has had an evulsion injury to the infra pole of the patella but this does not seem to be where most of his pain is and it is not interfering with the knee extensor mechanism. He is otherwise healthy good surgical candidate. We will plan to do this under general anesthetic at surgery Center. No further questions. Dwayne Burris???Andrea JAMES documented in this encounter Plan of Treatment Not on file documented as of this encounter Visit Diagnoses Not on filedocumented in this encounter
--- OUTSIDE RECORDS SUMMARY | 2024-12-30 08:33 | XMS_ITS | Encounter Summary ---
Author Organization [employer] Address [address] [place] [address] Care Team Providers Care Paper Bundler Name Role Phone Unavailable Primary Care Provider Unavailabl e Encounter Details Date Type Department Care Team (Late st Contact Info) Description 07/10/2019 Transcribed Document [facility] [place] [facility] [place] [address] ProviderBrigida MD [address] [place] [address] Social History Tobacco Use Types Packs/Day [...] - Historical ProviderMD - 07/10/2019 7:57 AM DERMATOLOGY PHYSICIAN ASSISTANT RYLAN Main OR IntraOp Summary Primary Physician: SURY SHARMA MD-ORT Finalized Date/Time: 07/10/19 08:31:14 Pt. Name: HUGO AGIULAR JR, D.O.B./Sex: 1955 Male Med Rec #: [id number] Physician: SURY SHARMA MD-ORT Financial #: [id number] Pt. Type: O Room/Bed: Admit/Disch: 07/10/19 05:55:00 - Institution: [facility] [place] IntraOp Case Attendance Entry 1 Entry 2 Entry 3 Case Attendee SURY SHARMA, TRAVIS PUTNAM, ESTRELLA, Kenrick Guadalupe, DERMATOLOGY PHYSICIAN ASSISTANT/DRUM OPERATOR -ORT PHARMACISTS-ANS Role Performed Surgeon/Proceduralist, PHARMACISTS/Nurse [facility] Assistant Director Plate Cleaner, First First Time In 07/10/19 07:38:00 07/10/19 07:38:00 07/10/19 07:38:00 Time Out 07/10/19 08:26:00 07/10/19 08:26:00 07/10/19 08:26:00 Procedure Knee Arthroscopy Knee Arthroscopy Knee Arthroscopy Other Attendee Superficial Wound Closed By: Last Modified By: Martha Goldberg RN Dobson, Melissa, RN Dobson, Melissa, RN 07/10/19 08:31:02 07/10/19 08:31:02 07/10/19 08:31:02 Entry 4 Entry 5 Case Attendee WILMER HECTOR Melissa, RN Role Performed Scrub, First Dry Charge Process Attendant, First Time In 07/10/19 07:38:00 07/10/19 07:38:00 Time Out 07/10/19 08:26:00 07/10/19 08:26:00 Procedure Knee Arthroscopy Knee Arthroscopy Other Attendee Superficial Wound Closed By: Last Modified By: Martha Goldberg RN Dobson, Melissa, RN 07/10/19 08:31:02 07/10/19 08:31:02 [facility] IntraOp Case Attendance Audit 07/10/19 08:31:02 Whizzer Hand: [id number] Modifier: [id number] <+> Time Out 1 <*> Procedure Knee Arthroscopy 2 <+> Time Out 2 <*> Procedure Knee Arthroscopy 3 <+> Time Out 3 <*> Procedure Knee Arthroscopy 4 <+> Time Out 4 <*> Procedure Knee Arthroscopy 5 <+> Time Out 5 <*> Procedure Knee Arthroscopy 07/10/19 08:12:16 Whizzer Hand: [id number] Modifier: [id number] <+> 1 Time In <+> 1 Procedure 2 <+> Time In 2 <*> Procedure Knee Arthroscopy 3 <+> Time In 3 <*> Procedure Knee Arthroscopy 4 <+> Time In 4 <*> Procedure Knee Arthroscopy 5 <+> Time In 5 <*> Procedure Knee Arthroscopy SJE IntraOp Case Times Entry 1 Patient In Room Time 07/10/19 07:38:00 Out Room Time 07/10/19 08:26:00 Anesthesia Start Time 07/10/19 07:38:00 Stop Time 07/10/19 08:26:00 Anesthesia Ready 07/10/19 07:38:00 Surgery / Procedure Times Start Time 07/10/19 07:57:00 Stop Time 07/10/19 08:19:00 Last Modified By: Martha Goldberg RN 07/10/19 08:30:17 S[facility] IntraOp Case Times Audit 07/10/19 08:30:17 Whizzer Hand: [id number] Modifier: [id number] <+> 1 Out Room Time <+> 1 Stop Time <+> 1 Stop Time SJE IntraOp Communication Entry 1 Communication To Family/Significant other Comment START OF PROCEDURE Communication By WILMER HECTOR Date and Time 07/10/19 08:00:00 Last Modified By: Martha Goldberg RN 07/10/19 08:01:48 S[facility] IntraOp Counts Verification Entry 1 Procedure Knee Arthroscopy Count Info Count Type Sponge, Sharps Counts Verification Baseline/pre-procedure Sequence Counts Performed By Count Performed By WILMER HECTOR (Scrub) Count Performed By Martha Goldberg RN (RN) Last Modified By: Martah Goldberg RN 07/10/19 08:02:01 [facility] IntraOp Counts Final Entry 1 Procedure Knee Arthroscopy Final Count Info Count Type Sponge, Sharps Counts Verification Skin Closure/end of Sequence procedure Count Results Correct, surgeon notified Counts Performed By Count Performed By Kenrick Guadalupe CST/FREDY (Scrub) Count Performed By Martha Goldberg RN (RN) Last Modified By: Martha Goldberg RN 07/10/19 08:29:56 S[facility] IntraOp Counts Final Audit 07/10/19 08:29:56 Whizzer Hand: [id number] Modifier: [id number] 1 <*> Procedure Knee Arthroscopy S[facility] IntraOp Delays Entry 1 Delay Reason Other Duration 8 Minute(s) Last Modified By: Martha Goldberg RN 07/10/19 08:06:57 SJE IntraOp Departure from OR Entry 1 Integumentary Assessment Integumentary WDL Assessment WDL Transfer/Handoff Transfer to PACU Phase I Handoff Method Bedside/Face to face Post-op Transport Stretcher/Gurney Via Patient Transport Martha Goldberg RN, Accompanied by TRAVIS PUTNAM, GEOSPATIAL EXTRACTOR ANALYSIS, PHARMACISTS-ANS Last Modified By: Martha Goldberg RN 07/10/19 08:06:58 SJE IntraOp Dressing and Packing Entry 1 Type Dressing Location RIGHT KNEE Wound Dressing Item 4x4's, Joseph, Kerlix/Maninder Applied By Kenrick Guadalupe, DERMATOLOGY PHYSICIAN ASSISTANT/DRUM OPERATOR Last Modified By: Martha Goldberg RN 07/10/19 08:07:17 SJE IntraOp Fire Risk Assessment Entry 1 Fire Info Surgical Site or 0- No Incision Above the Xyphoid Open O2 Source 0- No (Mask or Cannula) Available Ignition 1- Yes (ESU, Laser, Light Source) Fire Risk 1 Assessment Score Fire Score Fire Risk Yes Assessment Complete Fire Risk Martha Goldberg RN Assessment Verified By Fire Risk 07/10/19 07:56:00 Assessment Verified Date/Time Fire Risk Standard Fire Yes Safety Precautions Followed Last Modified By: Martha Goldberg RN 07/10/19 08:07:26 SJE IntraOp General Case Search Engine Optimization Analyst 1 Case Information OR OR 05 SJE Case Level 1 Room Verified Yes Wound Class I - Clean Specialty SN Orthopedic Anesthesia Type General ASA Class 3 Diagnosis Preop Diagnosis RIGHT KNEE PAIN Postop Same As Preop Yes Postop Diagnosis RIGHT KNEE PAIN Last Modified By: Martha Goldberg RN 07/10/19 08:16:03 SJE IntraOp General Case Data Audit 07/10/19 08:16:03 Whizzer Hand: [id number] Modifier: [id number] <+> 1 ASA Class <+> 1 Anesthesia Type <+> 1 Postop Same As Preop <+> 1 Preop Diagnosis <+> 1 Postop Diagnosis <+> 1 Room Verified SJE IntraOp Intraoperative Assessment Entry 1 Handoff Method Bedside/Face to face Valid History / Yes Physical in Chart Preoperative Yes Checklist Reviewed/Evaluated Allergies Reviewed Yes Patient is Latex No Sensitive Isolation Not applicable Precautions Noted Level of WDL Consciousness (WDL = Alert, Oriented to Person, Place, and Time) Skin Assessment Yes Verified Present Upon IVs Arrival to OR Last Modified By: Martha Goldberg RN 07/10/19 08:14:43 SJE IntraOp Intraoperative Equipment Entry 1 Entry 2 Type Equipment Equipment Equipment Equipment Rowena Suction System Rowena Suction System ID Number [id number] Setting HIGH HIGH Intraop Monitoring Electrocardiogram Three lead placement Three lead placement (ECG) Electrode Placement Blood Pressure Non-Invasive BP Device Non-Invasive BP Device Source Blood Pressure Location Pulse Oximeter Probe Site Antiembolic Devices Antiembolic Devices Antiembolic Device Location Antiembolic Device ID Number Antiembolic Device Setting Scopes Flexible Endoscopes Used Scope Serial Number/Identificatio n Number Photo/Video Documentation Photo Yes Yes Video Yes Yes Intraop Equipment TOWER # TOWER # Comment Last Modified By: Martha Goldberg RN Dobson, Melissa, RN 07/10/19 08:15:09 07/10/19 08:15:09 SJE IntraOp Intraoperative Equipment Audit 07/10/19 08:15:09 Whizzer Hand: [id number] Modifier: [id number] 1 <*> Photo Yes 1 <*> Video Yes 1 <*> Equipment Rowena Suction System 1 <*> Setting HIGH 1 <*> Electrocardiogram (ECG) Electrode Three lead placement Placement 1 <*> Blood Pressure Source Non-Invasive BP Device 1 <*> Intraop Equipment Comment TOWER # 1 <*> Type Equipment <+> 2 Photo <+> 2 Video <+> 2 Equipment <+> 2 ID Number <+> 2 Setting <+> 2 Electrocardiogram (ECG) Electrode Placement <+> 2 Blood Pressure Source <+> 2 Intraop Equipment Comment <+> 2 Type SJE IntraOp Medication Admin Entry 1 Entry 2 Medication/Irrigant lidocaine 2% 20ml vial Marcaine 0.5% 30ml vial - [id number] - [id number] Combo Med List Time Administered 07/10/19 07:57:00 07/10/19 07:57:00 Route of LOCAL LOCAL Administration Dose Dose 25 20 Unit of Measure ml ml Volume Administered By Kenrick Guadalupe, DERMATOLOGY PHYSICIAN ASSISTANT/DRUM OPERATOR Kenrick Guadalupe CST/FREDY Procedure Irrigation Irrigant Volume In Irrigant Volume Out Last Modified By: Martha Goldberg RN Dobson, Melissa, RN 07/10/19 08:14:40 07/10/19 08:14:40 General Comments: LIDOCAINE 2% INJECTED PRIOR TO PROCEDURE PREP, REMAINDER INJECTED AT END OF PROCEDURE. SJE IntraOp Patient Positioning Entry 1 Procedure Knee Arthroscopy Body Position Supine Left Arm Position Secured on padded arm board Right Arm Position Secured on padded arm board Left Leg Position Uncrossed, parallel Right Leg Position Uncrossed, parallel Feet Uncrossed Yes Pressure Points Yes Checked Positioning Devices Arm Board, Pillows, Safety Strap, Chest, Safety Strap, Arm(s), Other Device Position LATERAL POST AT THIGH ONE RIGHT SIDE Positioned By Martha Goldberg RN, TRAVIS PUTNAM, GEOSPATIAL EXTRACTOR ANALYSIS, PHARMACISTS-ANS Position Verified Positioning Yes Verified by Anesthesia Positioning Yes Verified by Surgeon Last Modified By: Martha Goldberg RN 07/10/19 08:10:12 General Comments: ARMBOARDS PADDED WITH EGGCRATE FOAM FOR EXTRA SUPPORT FOR ELBOWS AND HANDS SJE IntraOp Sign In Entry 1 Patient, Site, Yes Procedure Identified Surgical Consent Yes Confirmed Relevant Surgical Yes Documents Available Surgical Site Yes Marked by person performing procedure Anesthesia Machine Yes Check Completed Medication Checks Yes Completed Allergies Yes Airway Difficult No Airway/Aspiration Risk Difficult Yes Airway/Aspiration Intervention Equipment Available Blood Loss Risk No Blood Loss Yes Intervention Equipment Prepared and Ready Blood Identifiers Not applicable Verified Per Policy Hypothermia Risk No Warming Measures Yes Taken Last Modified By: Martha Goldberg RN 07/10/19 08:12:07 SJE Intra Op Sign Out Entry 1 RN Confirmation Surgical Yes Procedure(s) Identified Instrument, Sponge Yes and Sharps Counts Correct/Documented Equipment Problems N/A Documented Specimen Labeled N/A Correctly Urinary Catheter N/A Documented in IView Coleman Patient Yes Recovery Concerns Reviewed with Anesthesia Provider, Surgeon and RN Safety Checklist Yes Elements Complete? RN Sign Out Martha Goldberg RN Signature RN Sign Out 07/10/19 08:26:00 Signature Date/Time Plan of Care Outcome - Fire Risk OUTCOME STATEMENT: Goal met Patient is free from injury related to surgical fire Plan of Care Outcome - Pt Positioning OUTCOME STATEMENT: Goal met Absence of signs and symptoms of positioning injury. Plan of Care Outcome - Skin Prep OUTCOME STATEMENT: Goal met Intraoperative care is consistent with measures to prevent infection Plan of Care Outcome - Xray/Images OUTCOME STATEMENT: N/A Absence of observable signs or symptoms of radiation injury Plan of Care Outcome - Counts OUTCOME STATEMENT: Goal met Absence of signs and symptoms of injury related to extraneous objects Last Modified By: Martha Goldberg RN 07/10/19 08:30:31 SJE Intra Op Sign Out Audit 07/10/19 08:30:31 Whizzer Hand: [id number] Modifier: [id number] <+> 1 RN Sign Out Signature Date/Time SJE IntraOp Skin Prep Entry 1 Procedure Knee Arthroscopy Prescribed Yes Pre-Surgical Prep Completed Prep Area RIGHT KNEE Intraop Prep Integumentary WDL Assessment WDL Prep Agents Alcohol, Chlorhexadine gluconate Prep by Martha Goldberg RN Hair Removal Methods No hair removal performed Last Modified By: Martha Goldberg RN 07/10/19 08:08:59 SJE IntraOp Surgical Procedures Entry 1 Procedure Knee Arthroscopy Additional RIGHT KNEE ARTHROSCOPY Procedure WITH DEBRIDEMENT Description Primary Procedure Yes Primary Surgeon SURY SHARMA MD-ORT Start 07/10/19 07:57:00 Stop 07/10/19 08:19:00 Anesthesia Type General Specialty SN Orthopedic Wound Class I - Clean Last Modified By: Martha Goldberg RN 07/10/19 08:30:36 SJE IntraOp Surgical Procedures Audit 07/10/19 08:30:36 Whizzer Hand: [id number] Modifier: [id number] <+> 1 Stop 07/10/19 08:16:57 Whizzer Hand: [id number] Modifier: [id number] 1 <*> Procedure Knee Arthroscopy SJE IntraOp Temp Regulation Devices Entry 1 Temp Regulation Temperature Warm blankets Regulation Device Temperature Upper body Regulation Site Temperature TRAVIS PUTNAM APRN, Regulation Device PHARMACISTS-ANS Applied by Last Modified By: Martha Goldberg RN 07/10/19 08:15:35 SJE IntraOp Time Out Entry 1 Procedure to be Knee Arthroscopy Performed Time Out Time Out Pause Time 07/10/19 07:56:00 All activity Yes suspended (unless life threatening emergency) Team Verbally Correct patient Confirms Information identity, Consent form is present and accurate, Agreement on the procedure to be done, Correct patient position, Relevant images/results properly labeled/appropriately displayed, Confirm antibiotics have been administered, Confirm the skin prep has dried, Confirm prosthesis/implant/devic e is present, Performed in location of procedure after prepped/draped Antibiotic Yes Prophylaxis Administered Or In Progress Within the Last 60 Minutes Beta Jaime Yes Administered Venous N/A Thromboembolism Prophylaxis Required Anticipated Critical Events Surgeon None expected Anesthesia Provider None expected Nursing Assures Sterility of instruments, Equipment concerns or issues, Implant Availability Essential Imaging Yes Labeled and Displayed Last Modified By: Martha Goldberg RN 07/10/19 08:31:00 SJE IntraOp Time Out Audit 07/10/19 08:31:00 Whizzer Hand: [id number] Modifier: [id number] 1 <*> Beta Jaime Administered N/A 1 <*> Procedure to be Performed Knee Arthroscopy Case Comments <None> Finalized By: Martha Goldberg RN Document Signatures Signed By: Martha Goldberg RN 07/10/19 08:31 Electronically signed by [facility] Conversion [employer] at 11/06/2022 5:47 PM CDT documented in this encounter Plan of Treatment Not on file documented as of this encounter Visit Diagnoses Not on filedocumented in this encounter
--- OUTSIDE RECORDS SUMMARY | 2024-12-30 08:33 | XMS_ITS | Encounter Summary ---
Author Organization [facility] Address [address] [place] [address] Care Team Providers Care Senior Sourcing Manager Name Role Phone Zhao Harris MD Primary Care Provider [phone] Encounter Details Date Type Department Care Team (Latest Contact Info) Description 12/17/2024 Travel Social History Tobacco Use Types Packs/Day [...] drink first t manav in the morning (EYE-PLATING INSPECTOR) to steady your nerves or to get [...] Date Type Department Care Team ([facility] st Contact Info) Description 01/06/2025 8:30 AM EDT Clinical Support [facility] Hematology/BMT and Cellular Therapy Program [address] [phone] 01/06/2025 9:00 AM EDT Procedure Visit [facility]ematology/BMT and Cellular Therapy Program [address] [phone] Kierra Novak, FLAME ANNEALING MACHINE SETTER 800 [facility] [address] [place] [phone] 01/13/2025 9:30 AM EDT Clinical Support [facility] Hematology/BMT and Cellular Therapy Program [address] [phone] 01/13/2025 10:00 AM EDT Office Visit [facility]ematology/BMT and Cellular Therapy Program [address] [phone] Isaura Wynn, FLAME ANNEALING MACHINE SETTER 800 [facility] [address] [place] [phone] 01/13/2025 11:30 AM EDT Appointment [facility] [address] [place] [phone] 01/14/2025 2:00 PM EDT Appointment [facility] [address] [place] [phone] 01/15/2025 2:00 PM EDT Appointment [facility] [address] [place] [phone] 01/16/2025 2:00 PM EDT Appointment [facility] [address] [place] [phone] 01/17/2025 2:00 PM EDT Appointment [facility] [address] [place] [address] 01/18/2025 2:00 PM EDT Appointment [facility] [address] [place] [address] 01/19/2025 2:00 PM EDT Appointment [facility] [address] [place] [address] 03/10/2025 11:20 AM EDT Office Visit [facility] Head, Neck & Respiratory 800 [facility], [address] [place] [address] Elsa Razo, FLAME ANNEALING MACHINE SETTER 800 [place] [address] documented as of this encounter Visit Diagnoses [...] as of this encounter Care Teams Senior Sourcing Manager Relationship Specialty Start Date End Date Zhao Harris MD [address] [place] [address] [phone] PCP - General 12/03/20 documented as of this encounter
--- OUTSIDE RECORDS SUMMARY | 2024-12-30 08:33 | XMS_ITS | Clinical Summary ---
Author Organization [employer] Address [address] [place] [address] Care Team Providers Care Intelligence Engineer Name Role Phone Unavailable Primary Care Provider Unavailabl e Social History Tobacco Use Types Packs/Day Years Used Date Smoking Tobacco: Never Assessed Sex and Gender Information Value Date Recorded Sex Assigned at Male 01/17/2022 8:17 PM CDT Legal Sex Male 8:17 PM CDT Gender Identity Male 01/17/2022 8:17 PM CDT Sexual Orientation Not on file Plan of Treatment Not on file
--- OUTSIDE RECORDS SUMMARY | 2024-12-30 08:33 | XMS_ITS | Encounter Summary ---
Author Organization [facility] Address [address] [place] [address] Care Team Providers Care Author Agent Name Role Phone Zhao Harris MD Primary Care Provider [phone] Encounter Details Date Type Department Care Team (Latest Contact Info) Description 11/05/2024 Travel Social History Tobacco Use Types Packs/Day [...] drink first t manav in the morning (EYE-CENTER DIRECTOR) to steady your nerves or to [...] Upcoming Encounters Date Type Department Care Team ([facility] st Contact Info) Description 01/06/2025 8:30 AM EDT Clinical Support [facility] Hematology/BMT and Cellular Therapy Program [address] [place] [phone] 01/06/2025 9:00 AM EDT Procedure Visit [facility] Hematology/BMT and Cellular Therapy Program [address] [phone] Kierra Novak, REGIONAL ADMINISTRATIVE ASSISTANT 800 [facility] [address] [place] [phone] 01/13/2025 9:30 AM EDT Clinical Support [facility] Hematology/BMT and Cellular Therapy Program [address] [phone] 01/13/2025 10:00 AM EDT Office Visit [facility] Hematology/BMT and Cellular Therapy Program [address] [phone] Isaura Wynn, REGIONAL ADMINISTRATIVE ASSISTANT 800 [facility] [address] [place] [phone] 01/13/2025 11:30 AM EDT Appointment [facility] 800 [place] [phone] 01/14/2025 2:00 PM EDT Appointment [facility] [address] [place] [phone] 01/15/2025 2:00 PM EDT Appointment [facility] [address] [place] [phone] 01/16/2025 2:00 PM EDT Appointment [facility] [address] [place] [phone] 01/17/2025 2:00 PM EDT Appointment [facility] [address] [place] [address] 01/18/2025 2:00 PM EDT Appointment [facility] [address] [place] [address] 01/19/2025 2:00 PM EDT Appointment [facility] 800 [place] [address] 03/10/2025 11:20 AM EDT Office Visit [facility] Head, Neck & Respiratory 800 [facility], [address] [place] [address] Elsa Razo, REGIONAL ADMINISTRATIVE ASSISTANT 800 [place] [address] documented as of this encounter Visit Diagnoses [...] documented as of this encounter Care Teams Author Agent Relationship Specialty Start Date End Date Zhao Harris MD [address] [place] [address] PCP - General 12/03/20 documented as of this encounter
--- OUTSIDE RECORDS SUMMARY | 2024-12-30 08:33 | XMS_ITS | Referral Summary ---
Author Organization [employer] Address [address] [place] [address] Care Team Providers Care Cyber Incident Handler Name Role Phone Unavailable Primary Care Provider [...]
--- OUTSIDE RECORDS SUMMARY | 2024-12-30 08:33 | XMS_ITS | Encounter Summary ---
Author Organization [employer] [facility] [place] Address [address] [place] [address] Care Team Providers Care Ic Designer Standard Cells Name Role Phone Unavailable Primary Care Provider Unavailabl e Encounter Details Date Type Department Care Team (Late st Contact Info) Description 07/10/2019 Transcribed Document [facility] [place] Family Medicine [address] [place] [address] ProviderBrigida MD [facility] [place] [place] [phone] Social History Tobacco Use Types Packs/Day Years Used Date Smoking Tobacco: Never Assessed Sex and Gender Information Value Date Recorded Sex Assigned at Male 01/17/2022 8:17 PM CDT Legal Sex Male 8:17 PM CDT Gender Identity Male 01/17/2022 8:17 PM CDT Sexual Orientation Not on file documented as of this encounter Miscellaneous Notes * [employer]ner Conversion Note - Historical ProviderMD - 07/10/2019 9:45 AM BINDER CHAINSTITCH Event Note Entered On: 07/10/2019 11:04 EST Performed On: 07/10/2019 9:45 EST by Laquita Romero RN Event Note Event Date/Time : 07/10/2019 9:45 EST Event Location : Other: post-op Description of Event : Pt informed that next dose of Olden pain medication due @ 3:45pm today instead of 3:30pm. Laquita Romero RN - 07/10/2019 11:02 EST Electronically signed by Katlin Maldonado Conversion Vice President [employer] at 11/06/2022 6:14 PM CDT documented in this encounter Plan of Treatment Not on file documented as of this encounter Visit Diagnoses Not on filedocumented in this encounter
--- OUTSIDE RECORDS SUMMARY | 2024-12-30 08:33 | XMS_ITS | Encounter Summary ---
Author Organization [facility] Address [address] [place] [address] Care Team Providers Care Customer Account Coordinator Name Role Phone Zhao Harris MD Primary Care Provider [phone] Encounter Details Date Type Department Care Team (Latest Contact Info) Description 12/18/2024 Travel Social History Tobacco Use Types Packs/Day [...] drink first t manav in the morning (EYE-OIL WELL DIRECTIONAL SURVEYOR) to steady your nerves or to get [...] ([facility] st Contact Info) Description 01/06/2025 8:30 AM EDT Clinical Support [facility] Hematology/BMT and Cellular Therapy Program [address] [phone] 01/06/2025 9:00 AM EDT Procedure Visit [facility] Hematology/BMT and Cellular Therapy Program [address] [phone] Kierra Novak, INTERIOR BLOCK WIRER 800 [facility] [address] [place] [phone] 01/13/2025 9:30 AM EDT Clinical Support [facility] Hematology/BMT and Cellular Therapy Program [address] [phone] 01/13/2025 10:00 AM EDT Office Visit [facility] Hematology/BMT and Cellular Therapy Program [address] [phone] Isaura Wynn, INTERIOR BLOCK WIRER 800 [facility] [address] [place] [phone] 01/13/2025 11:30 AM EDT Appointment [facility] [address] [place] [phone] 01/14/2025 2:00 PM EDT Appointment [facility] [address] [place] [phone] 01/15/2025 2:00 PM EDT Appointment [facility] [address] [place] [phone] 01/16/2025 2:00 PM EDT Appointment [facility] [address] [place] [phone] 01/17/2025 2:00 PM EDT Appointment [facility] [address] [place] [address] 01/18/2025 2:00 PM EDT Appointment [facility] [address] [place] [address] 01/19/2025 2:00 PM EDT Appointment [facility] 800 [place] [address] 03/10/2025 11:20 AM EDT Office Visit [facility] Head, Neck & Respiratory 800 [facility], [address]nd [place] [address] Elsa Razo, INTERIOR BLOCK WIRER 800 [place] [address] documented as of this encounter Visit Diagnoses [...] as of this encounter Care Teams Customer Account Coordinator Relationship Specialty Start Date End Date Zhao Harris MD [address] [place] [address] [phone] PCP - General 12/03/20 documented as of this encounter
--- OUTSIDE RECORDS SUMMARY | 2024-12-30 08:33 | XMS_ITS | Encounter Summary ---
Author Organization [employer] Address [address] [place] [address] Care Team Providers Care Digital Content Manager Name Role Phone Unavailable Primary Care Provider Unavailabl e Encounter Details Date Type Department Care Team (Late st Contact Info) Description 07/10/2019 Transcribed Document [facility] Family Medicine [facility] [place] [address] ProviderBrigida MD [address] [place] [id number] Social History Tobacco Use Types Packs/Day [...] - Historical ProviderMD - 07/10/2019 7:57 AM FRUIT OR NUT GROWER [facility] Main OR PreOp Summary Primary Physician: SURY SHARMA MD-ORGenia Finalized Date/Time: 07/21/19 08:13:07 Pt. Name: HUGO AGUILAR JR, D.O.B./Sex: 1955 Male Med Rec #: [id number] Physician: SURY SHARMA MD-ORT Financial #: [id number] Pt. Type: O Room/Bed: Admit/Disch: 07/10/19 05:55:00 - 07/10/19 10:00:00 Institution: [facility] PreOp Case Times Entry 1 In Preop 07/10/19 06:10:00 Ready for Holding n/a Room Patient Ready for 07/10/19 07:19:00 Surgery Patient Out of Preop 07/10/19 07:35:00 Patient Out of n/a Holding Room Last Modified By: REAL SEVILLA 07/21/19 08:13:06 SJE PreOp Case Times Audit 07/21/19 08:13:06 Automated Teller Manager: FAY Modifier: [email or web address] <+> 1 Patient Out of Preop Finalized By: REAL SEVILLA Document Signatures Signed By: REAL SEVILLA 07/21/19 08:13 documented in this encounter Plan of Treatment Not on file documented as of this encounter Visit Diagnoses Not on filedocumented in this encounter
--- OUTSIDE RECORDS SUMMARY | 2024-12-30 08:34 | XMS_ITS | Encounter Summary ---
Author Organization [facility] Address [address] [place] [address] Care Team Providers Care Campus Manager Name Role Phone Zhao Harris MD Primary Care Provider [phone] Encounter Details Date Type Department Care Team (Latest Contact Info) Description 11/10/2024 Travel Social History Tobacco Use Types Packs/Day [...] drink first t manav in the morning (EYE-ANATOMIC PATHOLOGY ASSISTANT) to steady your nerves or to [...] [facility] Contact Info) Description 01/06/2025 8:30 AM EDT Clinical Support [facility] Cellular Therapy [facility] [address] [place] [phone] 01/06/2025 9:00 AM EDT Procedure Visit [facility] [address] [phone] Kierra Novak, SERVICE GREETER 800 [facility] [address] [place] [phone] 01/13/2025 9:30 AM EDT Clinical Support [facility] [address] [phone] 01/13/2025 10:00 AM EDT Office Visit [facility] [address] [phone] Isaura Wynn, SERVICE GREETER 800 [facility] [address] [place] [phone] 01/13/2025 11:30 AM EDT Appointment [facility] [address] [place] [phone] 01/14/2025 2:00 PM EDT Appointment [facility] [address] [place] [phone] 01/15/2025 2:00 PM EDT Appointment [facility] [address] [place] [phone] 01/16/2025 2:00 PM EDT Appointment [facility] [address] [place] [phone] 01/17/2025 2:00 PM EDT Appointment [facility] [address] [place] [address] 01/18/2025 2:00 PM EDT Appointment [facility] [address] [place] [address] 01/19/2025 2:00 PM EDT Appointment [facility] [address] [place] [address] 03/10/2025 11:20 AM EDT Office Visit [facility] 800 [facility], [address] [place] [address] Elsa Razo, SERVICE GREETER [address] [place] [address] documented as of this encounter Visit Diagnoses [...] documented as of this encounter Care Teams Campus Manager Relationship Specialty Start Date End Date Zhao Harris MD [address] [place] [address] PCP - General 12/03/20 documented as of this encounter
--- OUTSIDE RECORDS SUMMARY | 2024-12-30 08:34 | XMS_ITS | Encounter Summary ---
Author Organization [facility] Address [address] [place] [address] Care Team Providers Care Engineer Steam Name Role Phone Zhao Harris MD Primary Care Provider [phone] Encounter Details Date Type Department Care Team ([facility] st Contact Info) Description 11/05/2024 Results Follow-Up [facility] Head[facility] Neck [facility] Respiratory 800 [facility], [address] [place] [address] Elsa Razo, STOVE FITTER [address] [place] [address] Social History Tobacco Use Types Packs/Day Years [...] first t manav in the morning (EYE-PUBLIC TRANSIT SPECIALIST) to steady your nerves or to [...] Support [facility] Therapy [facility] [address] [place] [phone] 01/06/2025 9:00 AM EDT Procedure Visit [facility] [address] [place] [phone] Kierra Novak, STOVE FITTER 800 [facility] [address] [place] [phone] 01/13/2025 9:30 AM EDT Clinical Support [facility] Cellular Therapy [facility] [address] [place] [phone] 01/13/2025 10:00 AM EDT Office Visit [facility] [address] [place] [phone] Isaura Wynn, ESTRELLA 800 [facility] [address] [place] [phone] 01/13/2025 11:30 AM EDT Appointment [facility] 800 [place] [phone] 01/14/2025 2:00 PM EDT Appointment [facility] [address] [place] [phone] 01/15/2025 2:00 PM EDT Appointment [facility] [address] [place] [address] 01/16/2025 2:00 PM EDT Appointment [facility] [address] [place] [address] 01/17/2025 2:00 PM EDT Appointment [facility] [address] [place] [address] 01/18/2025 2:00 PM EDT Appointment [facility] [address] [place] [address] 01/19/2025 2:00 PM EDT Appointment [facility] [address] [place] [address] 03/10/2025 11:20 AM EDT Office Visit [facility] Head[facility] Neck [facility] Respiratory 800 [facility], [address] [place] [address] Elsa Razo, STOVE FITTER [address] [place] [address] documented as of this encounter Visit Diagnoses [...] documented as of this encounter Care Teams Engineer Steam Relationship Specialty Start Date End Date Zhao Harris MD [address] [facility] [address] [place] [address] PCP - General 12/03/20 documented as of this encounter
--- OUTSIDE RECORDS SUMMARY | 2024-12-30 08:34 | XMS_ITS | Clinical Summary ---
Author Organization [facility] [place] Address [address] [place] [address] Care Team Providers Care Can Cleaner Name Role Phone Zhao Harris MD Primary Care Provider + [phone] Allergies No known active allergies Medications nitroglycerin (Nitrostat) 0.4 MG SL tabletIndicati ons:Coronary artery disease involving [place] heart with angina pectoris, unspecified vessel or lesion type (CMS/HCC) Place 1 tablet (0.4 mg) under the tongue every 5 (five) minutes as needed for chest pain. 10 tablet 11 09/11/19 25 Active bisoprolol (Zebeta) 5 MG tabletIndicati ons:Coronary artery disease involving [place] heart with angina pectoris, unspecified vessel or lesion type (CMS/HCC),Hype rtension, unspecified type Take 1 tablet (5 mg) by mouth daily. 90 tablet 09/11/19 25 Active rosuvastatin (Crestor) 40 MG tablet Take 1 tablet (40 mg) by mouth daily. 30 tablet 11 10/14/19 25 Active levoFLOXacin (Levaquin) 500 MG tabletIndicati ons:Myelodyspl yon (myelodysplast ic syndrome) (CMS/HCC) Take 1 tablet (500 mg) by mouth daily. 30 tablet 10/15/19 25 Active acyclovir (Zovirax) 800 MG tabletIndicati ons:Myelodyspl yon (myelodysplast ic syndrome) (CMS/HCC) Take 1 tablet (800 mg) by mouth in the morning and 1 tablet (800 mg) before bedtime. 60 tablet 3 10/15/19 25 Active posaconazole (Noxafil) [address] tabletIndicati ons:Myelodyspl yon (myelodysplast ic syndrome) (CMS/HCC) Take 3 tablets (300 mg) by mouth daily with breakfast. Starting Cycle 1 Day 3 of venetoclax, take 300mg twice daily for 2 doses, then 300mg daily every day from then on. Do not crush, chew, or split. 90 tablet 5 10/15/19 25 Active prochlorperazi ne (Compazine) 10 MG tabletIndicati ons:Myelodyspl yon (myelodysplast ic syndrome) (CMS/HCC) Take 1 tablet (10 mg) by mouth every 6 hours as needed for nausea or vomiting. 30 tablet 5 10/15/19 25 Active senna-docusate sodium (Senokot-S) 8.6-50 MG tablet Take 2 tablets by mouth at night as needed for constipation. 30 tablet 3 10/24/19 25 Active HYDROcodone-ac etaminophen (Edmond) 5-325 MG tablet Take 1 tablet by mouth every 6 hours as needed. 11/08/19 25 Active hydrocortisone 2.5 % cream Apply 1 Application topically as needed for rash. 20 g 12/10/19 25 Active lidocaine-pril ocaine (Emla) 2.5-2.5 % cream Apply 1 inch cream to port site and cover with a dressing 60 minutes prior to being accessed. 30 g 2 12/10/19 25 Active magic mouthwash BLM (FIRST-Mouthwa sh) suspension Use 15 mL in the mouth or throat 4 times a day as needed for mucositis (swish and swallow prn for mouth sores). Swish and swallow 15 mL 4 times daily prn for mouth sores 237 mL 2 12/17/19 25 Active venetoclax (Venclexta) 50 MG tabletIndicati ons:Myelodyspl yon (myelodysplast ic syndrome) (CMS/HCC) Take 1 tablet by mouth daily for 14 days. 14 tablet 12/17/19 25 025 Active venetoclax (Venclexta) 10 MG tabletIndicati ons:Myelodyspl yon (myelodysplast ic syndrome) (CMS/HCC) Take 2 tablets by mouth daily for 14 days. 28 tablet 12/17/19 25 025 Active amLODIPine (Norvasc) 2.5 MG tabletIndicati ons:Coronary artery disease involving [place] heart with angina pectoris, unspecified vessel or lesion type (CMS/HCC),Hype rtension, unspecified type Take 1 tablet (2.5 mg) by mouth daily. 90 tablet 3 09/11/19 025 Discontinued nicotine (Nicoderm CQ) 21 MG/24HR patch Place 1 patch on the skin 1 (one) time each day at the same time. 28 patch 09/30/19 025 Discontinued isosorbide mononitrate ER (Imdur) 30 MG 24 hr tablet Take 1 tablet (30 mg) by mouth daily. Do not crush or chew. 30 tablet 11 10/04/19 025 Discontinued hydrocortisone 2.5 % cream Apply 1 Application topically as needed. 10/31/19 025 Discontinued(R eorder) venetoclax (Venclexta) 50 MG tabletIndicati ons:Myelodyspl yon (myelodysplast ic syndrome) (CMS/HCC) Take 1 tablet by mouth daily. Days 1-14 14 tablet 11/19/19 025 Discontinued venetoclax (Venclexta) 10 MG tabletIndicati ons:Myelodyspl yon (myelodysplast ic syndrome) (CMS/HCC) Take 2 tablets by mouth daily. Days 1-14. Take with 50 mg tablets for a total of 70 mg daily 28 tablet 11/19/19 025 Discontinued lidocaine-pril ocaine (Emla) cream Apply topically 1 time for 1 dose. 1 each 3 12/10/19 025 Discontinued Hospital, Clinic, or Other Facility Administered Medication Ordered Dose Route Frequency Start Date End Date Status heparin flush (porcine) 100 UNIT/ML injection 500 UnitsIndications:Port-A-Cat h in place 500 Units IK Once 12/11/2024 12/11/2024 Ended Active Problems Problem Noted Date Diagnosed Date [...] of knee 03/29/2017 Rotator cuff tear 04/23/2014 Resolved Problems Problem Noted Date Diagnosed Date Resolved Date 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 Encounters Date Type Department Care Team Description 12/23/2024 Orders Only [facility] Hematology/BMT and Cellular Therapy Program [address] [facility] [place] [address] Adam Conway, RN Myelodysplasia (myelodysplastic syndrome) (CMS/HCC) (Primary Dx) 12/22/2024 9:58 AM EDT - 12/22/2024 11:59 PM EDT Hospital Encounter [facility] [address] [place] [address] Myelodysplasia (myelodysplastic syndrome) (CMS/HCC) (Primary Dx) Discharge Disposition: Home or Self Care 12/22/2024 8:24 AM EDT - 12/22/2024 9:57 AM EDT Hospital Encounter [facility] [address] [place] [address] Myelodysplasia (myelodysplastic syndrome) (CMS/HCC) (Primary Dx); Thrombocytopenia (CMS/HCC) Discharge Disposition: Home or Self Care 12/22/2024 Travel 12/21/2024 8:30 AM EDT - 12/21/2024 11:59 PM EDT Hospital Encounter [facility] [address] [place] [address] Myelodysplasia (myelodysplastic syndrome) (CMS/HCC) (Primary Dx) Discharge Disposition: Home or Self Care 12/21/2024 Travel 12/20/2024 8:08 AM EDT - 12/20/2024 11:59 PM EDT Hospital Encounter [facility] [address] [place] [address] Myelodysplasia (myelodysplastic syndrome) (CMS/HCC) (Primary Dx); Thrombocytopenia (CMS/HCC); SOB (shortness of breath) Discharge Disposition: Home or Self Care 12/20/2024 Travel 12/19/2024 8:30 AM EDT - 12/19/2024 11:59 PM EDT Hospital Encounter [facility] [address] [place] [address] Myelodysplasia (myelodysplastic syndrome) (CMS/HCC) (Primary Dx) Discharge Disposition: Home or Self Care 12/19/2024 Travel 12/18/2024 9:46 AM EDT - 12/18/2024 11:59 PM EDT Hospital Encounter [facility] [address] [place] [address] Myelodysplasia (myelodysplastic syndrome) (CMS/HCC) (Primary Dx) Discharge Disposition: Home or Self Care 12/18/2024 8:30 AM EDT - 12/18/2024 9:45 AM EDT Hospital Encounter [facility] [address] [place] [address] Myelodysplasia (myelodysplastic syndrome) (CMS/HCC) (Primary Dx); Thrombocytopenia (CMS/HCC) Discharge Disposition: Home or Self Care 12/18/2024 Travel 12/17/2024 8:23 AM EDT - 12/17/2024 11:59 PM EDT Hospital Encounter [facility] [address] [place] [address] Myelodysplasia (myelodysplastic syndrome) (CMS/HCC) (Primary Dx); Thrombocytopenia (CMS/HCC) Discharge Disposition: Home or Self Care 12/17/2024 Travel 12/16/2024 11:00 AM EDT - 12/16/2024 11:59 PM EDT Hospital Encounter [facility] [address] [place] [address] Myelodysplasia (myelodysplastic syndrome) (CMS/HCC) (Primary Dx) Discharge Disposition: Home or Self Care 12/16/2024 10:00 AM EDT - 12/16/2024 10:59 AM EDT Hospital Encounter [facility] [address] [place] [address] Myelodysplasia (myelodysplastic syndrome) (CMS/HCC) (Primary Dx); Thrombocytopenia (CMS/HCC) Discharge Disposition: Home or Self Care 12/16/2024 8:30 AM EDT Office Visit [facility]ematology/BMT and Cellular Therapy Program [address] [phone] Isaura Wynn APRN Myelodysplasia (myelodysplastic syndrome) (CMS/HCC) (Primary Dx) 12/16/2024 8:00 AM EDT Clinical Support [facility] Therapy [facility] [address] [address] 12/16/2024 Orders Only [facility] Therapy [facility] [address] [phone] Christina Ramos MD Myelodysplasia (myelodysplastic syndrome) (CMS/HCC) (Primary Dx) 12/16/2024 Travel 12/12/2024 Orders Only [facility] Hematology/BMT and Cellular Therapy Program [address] [address] Gricel Gonzalez RN 12/11/2024 2:30 PM EDT Office Visit [facility] Vascular Interventional Radiology [address] [place] [address] Judy Leung APRN, DNP Port-A-Cath in place (Primary Dx); Myelodysplasia (myelodysplastic syndrome) (CMS/HCC) 12/11/2024 1:00 PM EDT Clinical Support [facility] [address] [facility], 2nd [place] [address] Myelodysplasia (myelodysplastic syndrome) (CMS/HCC) (Primary Dx); Thrombocytopenia (CMS/HCC) 12/11/2024 9:00 AM EDT Office Visit [facility]ematology/BMT and Cellular Therapy Program [address], [address] [place] [phone] Virgen Vargas MD Myelodysplasia (myelodysplastic syndrome) (CMS/HCC) (Primary Dx); Encounter for antineoplastic chemotherapy; 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); Pancytopenia due to chemotherapy (CMS/HCC); Immunosuppressed due to chemotherapy 12/11/2024 8:30 AM EDT Clinical Support [facility]ology/BMT [facility] Cellular Therapy Program [address] [phone] Myelodysplasia (myelodysplastic syndrome) (CMS/HCC) 12/11/2024 Orders Only [facility]ology[facility]BMT [facility] Cellular Therapy Program [address] [phone] Shahla Mejia RN 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) (Primary Dx) 12/11/2024 Travel 12/09/2024 1:30 PM EDT Clinical Support [facility] [address] [facility], 2nd [place] [address] Myelodysplasia (myelodysplastic syndrome) (CMS/HCC) (Primary Dx); Thrombocytopenia (CMS/HCC) 12/09/2024 9:00 AM EDT Procedure Visit [facility] Hematology/BMT and Cellular Therapy Program [address] [phone] Kierra Novak APRN Myelodysplasia (myelodysplastic syndrome) (CMS/HCC) 12/09/2024 8:30 AM EDT Clinical Support [facility] Hematology/BMT and Cellular Therapy Program [address] [phone] 12/09/2024 Telephone [facility] Hematology/BMT and Cellular Therapy Program [address] [phone] Essie Ricks RN 12/09/2024 Travel 12/08/2024 Travel 12/04/2024 Telephone [facility] Vascular Interventional Radiology [address] [place] [address] Martha William 12/01/2024 8:41 AM EDT - 12/01/2024 11:59 PM EDT Hospital Encounter [facility] Interventional Radiology [address] [place] [address] Gela Singer Thrombocytopenia (CMS/HCC) (Primary Dx); Myelodysplasia (myelodysplastic syndrome) (CMS/HCC) Discharge Disposition: Home or Self Care 12/01/2024 Travel 11/26/2024 10:00 AM EDT Office Visit [facility] Vascular Interventional Radiology [address] [place] [address] Latoya Nunez APRN Preop examination (Primary Dx) 11/26/2024 Travel 11/25/2024 Telephone [facility] Hematology/BMT and Cellular Therapy Program [address] [facility] [place] [address] Michelle Mast Distress Screen Follow-up 11/24/2024 2:30 PM EDT - 11/24/2024 11:59 PM EDT Hospital Encounter [facility] [address] [place] [address] Discharge Disposition: Home or Self Care 11/24/2024 1:59 PM EDT - 11/24/2024 2:29 PM EDT Hospital Encounter [facility] 1 [address] [place] [address] Myelodysplasia (myelodysplastic syndrome) (CMS/HCC) (Primary Dx); Thrombocytopenia (CMS/HCC) Discharge Disposition: Home or Self Care 11/24/2024 Travel 11/23/2024 1:43 PM EDT - 11/23/2024 11:59 PM EDT Hospital Encounter [facility] 1 [address] [place] [address] Myelodysplasia (myelodysplastic syndrome) (CMS/HCC) (Primary Dx) Discharge Disposition: Home or Self Care 11/23/2024 Travel 11/22/2024 1:59 PM EDT - 11/22/2024 11:59 PM EDT Hospital Encounter [facility] [address] [place] [address] Myelodysplasia (myelodysplastic syndrome) (CMS/HCC) (Primary Dx); Thrombocytopenia (CMS/HCC) Discharge Disposition: Home or Self Care 11/22/2024 Travel 11/21/2024 1:30 PM EDT - 11/21/2024 11:59 PM EDT Hospital Encounter [facility] [address] [place] [address] Myelodysplasia (myelodysplastic syndrome) (CMS/HCC) (Primary Dx) Discharge Disposition: Home or Self Care 11/21/2024 Travel 11/20/2024 2:06 PM EDT - 11/20/2024 11:59 PM EDT Hospital Encounter [facility] [address] [place] [address] Myelodysplasia (myelodysplastic syndrome) (CMS/HCC) (Primary Dx) Discharge Disposition: Home or Self Care 11/20/2024 1:36 PM EDT - 11/20/2024 2:05 PM EDT Hospital Encounter [facility] [address] [place] [address] Myelodysplasia (myelodysplastic syndrome) (CMS/HCC) (Primary Dx); Thrombocytopenia (CMS/HCC) Discharge Disposition: Home or Self Care 11/20/2024 Travel 11/19/2024 2:00 PM EDT - 11/19/2024 11:59 PM EDT Hospital Encounter [facility] Infusion Clinic 1 [address] [place] [address] Myelodysplasia (myelodysplastic syndrome) (CMS/HCC) (Primary Dx) Discharge Disposition: Home or Self Care 11/19/2024 Travel 11/19/2024 Orders Only [facility] Hematology/BMT and Cellular Therapy Program [address] [facility], [address] [place] [address] Adam Conway, RN Myelodysplasia (myelodysplastic syndrome) (CMS/HCC) (Primary Dx) 11/18/2024 12:25 PM EDT - 11/18/2024 11:59 PM EDT Hospital Encounter [facility] 1 [address] [place] [address] Myelodysplasia (myelodysplastic syndrome) (CMS/HCC) (Primary Dx); Thrombocytopenia (CMS/HCC) Discharge Disposition: Home or Self Care 11/18/2024 11:00 AM EDT Office Visit [facility]ematology/BMT and Cellular Therapy Program [address] [phone] Isaura Wynn APRN Myelodysplasia (myelodysplastic syndrome) (CMS/HCC) (Primary Dx) 11/18/2024 10:30 AM EDT Clinical Support [facility]ology/BMT and Cellular Therapy Program [address] [phone] 11/18/2024 Telephone [facility] [address] [place] [address] Maia Velasquez, PharmD 11/18/2024 Telephone [facility] Hematology/BMT [facility] Cellular Therapy Program [address] [phone] Brittny Mahoney RN 11/18/2024 Telephone [facility]ology/BMT [facility] Cellular Therapy Program [address] [phone] Gricel Gonzalez RN 11/18/2024 Travel 11/17/2024 Travel 11/10/2024 3:00 PM EDT - 11/10/2024 11:59 PM EDT Hospital Encounter [facility] [address] [place] [address] Myelodysplasia (myelodysplastic syndrome) (CMS/HCC) (Primary Dx); Thrombocytopenia (CMS/HCC) Discharge Disposition: Home or Self Care 11/10/2024 2:00 PM EDT Procedure Visit [facility] Cellular Therapy Program [address] [phone] Elaina Boss PA Myelodysplasia (myelodysplastic syndrome) (CMS/HCC) (Primary Dx) 11/10/2024 1:30 PM EDT Clinical Support [facility] Cellular Therapy [facility] [address] [place] [address] Eliana Vicente RN 11/10/2024 Travel 11/05/2024 11:00 AM EDT Clinical Support [facility] [address] [facility], 2nd [place] [address] Dyspnea on exertion 11/05/2024 10:00 AM EDT Office Visit [facility] [address] [facility], [address] [place] [address] Elsa Razo, ENGINE LATHE SET UP OPERATOR Pre-transplant evaluation for stem cell transplant (Primary Dx); Myelodysplasia (myelodysplastic syndrome) (CMS/HCC); Dyspnea on exertion; Coronary artery disease involving [place] coronary artery of [place] heart without angina pectoris; Thrombocytopenia (CMS/HCC) 11/05/2024 Results Follow-Up [facility] [address] [facility], [address] [place] [phone] Elsa Razo, ENGINE LATHE SET UP OPERATOR 11/05/2024 Travel 11/03/2024 2:31 PM EDT - 11/03/2024 6:28 PM EDT Emergency [facility] Emergency Department [address] [place] [phone] Kyle Bearden MD Symptomatic anemia (Primary Dx); Thrombocytopenia (CMS/HCC); Neutropenia, unspecified type (CMS/HCC) Discharge Disposition: Home or Self Care 11/03/2024 Travel 11/03/2024 Telephone [facility]ology[facility]BMT [facility] Cellular Therapy Program [address] [place] [address] Virgen Vargas MD 10/29/2024 Telephone [facility]ology/BMT and Cellular Therapy Program [address] [place] [address] Virgen Vargas MD 10/26/2024 1:20 PM EDT - 10/26/2024 11:59 PM EDT Hospital Encounter [facility] 2 [address] [place] [address] Myelodysplasia (myelodysplastic syndrome) (CMS/HCC) (Primary Dx); Thrombocytopenia (CMS/HCC) Discharge Disposition: Home or Self Care 10/26/2024 Travel 10/25/2024 2:50 PM EDT - 10/25/2024 11:59 PM EDT Hospital Encounter [facility] 2 [address] [place] [address] Myelodysplasia (myelodysplastic syndrome) (CMS/HCC) (Primary Dx) Discharge Disposition: Home or Self Care 10/25/2024 Travel 10/24/2024 2:12 PM EDT - 10/24/2024 11:59 PM EDT Hospital Encounter [facility] [address] [place] [address] Myelodysplasia (myelodysplastic syndrome) (CMS/HCC) (Primary Dx) Discharge Disposition: Home or Self Care 10/24/2024 Travel 10/24/2024 Orders Only [facility] Hematology/BMT and Cellular Therapy Program [address] [facility], [address] [place] [phone] Maia Kaplan RN 10/24/2024 Telephone [facility]ematology/BMT and Cellular Therapy Program 750 [facility], [address] [place] [phone] Virgen Vargas MD 10/23/2024 2:53 PM EDT - 10/23/2024 11:59 PM EDT Hospital Encounter [facility] 2 [address] [place] [address] Myelodysplasia (myelodysplastic syndrome) (CMS/HCC) (Primary Dx) Discharge Disposition: Home or Self Care 10/23/2024 Travel 10/22/2024 3:39 PM EDT - 10/22/2024 11:59 PM EDT Hospital Encounter [facility] 2 [address] [place] [address] Thrombocytopenia (CMS/HCC) (Primary Dx); Myelodysplasia (myelodysplastic syndrome) (CMS/HCC) Discharge Disposition: Home or Self Care 10/22/2024 Travel 10/21/2024 3:08 PM EDT - 10/21/2024 11:59 PM EDT Hospital Encounter [facility] 2 [address] [place] [address] Myelodysplasia (myelodysplastic syndrome) (CMS/HCC) (Primary Dx); SOB (shortness of breath) Discharge Disposition: Home or Self Care 10/21/2024 Travel 10/20/2024 6:09 PM EDT - 10/20/2024 11:59 PM EDT Hospital Encounter [facility] Rad[facility] [address] [place] [address] Myelodysplasia (myelodysplastic syndrome) (CMS/HCC) Discharge Disposition: Home or Self Care 10/20/2024 2:42 PM EDT - 10/20/2024 6:08 PM EDT Hospital Encounter [facility] 1 [address] [place] [address] Myelodysplasia (myelodysplastic syndrome) (CMS/HCC) (Primary Dx); SOB (shortness of breath); Smoker Discharge Disposition: Home or Self Care 10/20/2024 Travel 10/19/2024 Travel 10/17/2024 Telephone [facility]ology[facility]BMT [facility] Cellular Therapy Program [address] [place] [address] Virgen Vargas MD 10/16/2024 Telephone [facility]ology[facility]BMT [facility] Cellular Therapy Program [address] [place] [address] Virgen Vargas MD 10/15/2024 Lab Requisition [facility] [address] [place] [address] Virgen Vargas MD Abnormal finding of blood chemistry, unspecified 10/14/2024 Telephone [facility] [address] [place] [address] Andrea Burns, PharmD New Start 10/13/2024 2:30 PM EDT Office Visit [facility] Hematology/BMT and Cellular Therapy Program [address] [place] [address] Virgen Vargas MD Myelodysplasia (myelodysplastic syndrome) (CMS/HCC) (Primary Dx); Encounter for antineoplastic chemotherapy 10/13/2024 2:00 PM EDT Clinical Support [facility] Cellular Therapy Program [address] [place] [address] Eliana Vicente RN 10/13/2024 Telephone [facility] Therapy Program [address] [place] [address] Mague Trevino RN Critical Lab Results 10/13/2024 Travel 10/06/2024 Orders Only [facility] Therapy [facility] [address] [place] [phone] Adam Conway RN Myelodysplasia (myelodysplastic syndrome) (CMS/HCC) (Primary Dx) 10/06/2024 Telephone [facility] Therapy [facility] [address] [place] [phone] Virgen Vargas MD 10/02/2024 1:30 PM EDT Clinical Support [facility] [address] [place] [phone] Myelodysplasia (myelodysplastic syndrome) (CMS/HCC) 10/02/2024 11:24 AM EDT - 10/02/2024 11:59 PM EDT Hospital Encounter Cardiac Imaging [address] [place] [address] Discharge Disposition: Home or Self Care 10/02/2024 11:23 AM EDT Hospital Encounter Cardiac Imaging [address] [place] [address] Coronary artery disease involving [place] heart with angina pectoris, unspecified vessel or lesion type (CMS/HCC); Chest pain, unspecified type Discharge Disposition: Home or Self Care 10/02/2024 Travel 09/29/2024 1:00 PM EDT Office Visit [facility]ology[facility]BMT [facility] Cellular Therapy Program [address] [place], [place] [address] [place] [address] Virgen Vargas MD Myelodysplasia (myelodysplastic syndrome) (CMS/HCC) (Primary Dx) 09/29/2024 12:30 PM EDT Clinical Support [facility]ology/BMT and Cellular Therapy Program 750 [facility], [address] [place] [address] [place] [phone] 09/29/2024 Telephone [facility]ology[facility]BMT and Cellular Therapy Program 750 [facility], [address] [place] [phone] Chyna Dumont RN 09/29/2024 Travel from Last 3 Months Immunizations Immunization Administration Dates Next Due Influenza, injectable, quadrivalent, preservativ e free 05/21/2020 Family History Medical History Relation Name Comments Diabetes Other 1 Heart attack Other 2 Relation Name Status Comments Brother Alive Father Mother Alive Other 1 Other 2 Sister Alive Social History Tobacco Use Types Packs/Day Years [...] drink first t manav in the morning ([employer]) to steady your nerves or to get rid of a hangover? 0 11/03/2024 CAGE Questionnaire Score 0 025 Sex and Gender Information Value Date Recorded Sex Assigned at Male 05/18/2023 9:35 AM EDT Legal Sex Male 7:29 PM EDT Gender Identity Male 05/18/2023 9:35 AM EDT Sexual Orientation Straight 05/18/2023 9: 35 AM EDT Last Filed Vital Signs Vital Sign Reading Time Taken Comments Blood Pressure 131/82 12/22/2024 10:52 AM EDT Pulse 68 12/22/2024 10:52 AM EDT Temperature 36.7 C (98 F) 12/22/2024 10:28 AM EDT Respiratory Rate 18 12/22/2024 10:52 AM EDT Oxygen Saturation 100% 12/22/2024 10:52 AM EDT Inhaled Oxygen Concentration - - Weight 83.1 kg (183 lb 3.2 oz) 12/22/2024 8:26 A M EDT Height 170.2 cm (5' 7 ) 12/22/2024 8:26 AM EDT Body Mass Index 28.69 12/22/2024 8:26 AM EDT Plan of Treatment Upcoming Encounters Date Type Department Care Team ([facility] st Contact Info) Description 01/06/2025 8:30 AM EDT Clinical Support [facility] Cellular Therapy Program [address] [phone] 01/06/2025 9:00 AM EDT Procedure Visit [facility]ology[facility]BMT [facility] Cellular Therapy Program [address] [phone] Kierra Novak, ENGINE LATHE SET UP OPERATOR [address] [facility] [address] [place] [phone] 01/13/2025 9:30 AM EDT Clinical Support [facility]ology[facility]BMT [facility] Cellular Therapy Program [address] [address] 01/13/2025 10:00 AM EDT Office Visit [facility]ology[facility]BMT [facility] Cellular Therapy Program [address] [phone] Isaura Wynn, ENGINE LATHE SET UP OPERATOR [address] [facility] [address] [place] [phone] 01/13/2025 11:30 AM EDT Appointment [facility] [address] [place] [address] 01/14/2025 2:00 PM EDT Appointment [facility] [address] [place] [address] 01/15/2025 2:00 PM EDT Appointment [facility] Infusion [address] [place] [address] 01/16/2025 2:00 PM EDT Appointment [facility] [address] [place] [address] 01/17/2025 2:00 PM EDT Appointment [facility] [address] [place] [address] 01/18/2025 2:00 PM EDT Appointment [facility] [address] [place] [address] 01/19/2025 2:00 PM EDT Appointment [facility] [address] [place] [address] 03/10/2025 11:20 AM EDT Office Visit [facility] [address] [facility], [address]nd [place] [address] Elsa Razo, ENGINE LATHE SET UP OPERATOR [address] [place] [id number] Health Maintenance Due Date Last Done Comments [facility]-Medicare Annual Wellness (AWV) 1955 [facility]-/Child/Adol SDOH Screenings 1955 [facility]- SDOH Screenings 1973 [facility]-Adult SDOH Screenings 1973 [facility]-Pneumococcal Vaccine: 50+ Years (1 of 2 - PCV) 1974 [facility]-Zoster Vaccines (1 of 2) 1974 CT Colonography 2000 Colonoscopy 2000 FIT-DNA 2000 FIT 2000 FOBT 2000 Sigmoidoscopy 2000 [facility]-Colorectal Cancer Screening 2000 [facility]-Lung Cancer Screening 2005 [facility]-RSV Vaccine: 60+ Years or (1 - Risk 60-74 years 1-dose series) 2015 [facility]-Abdominal Aortic Aneurysm (AAA) Screening 2020 [id number] Vaccine (3 - Pfizer risk series) 11/11/2020 10/14/2020, 09/22/2020 [facility]-Depression Screening 09/11/2025 09/11/2024, 08/24 [facility]-DTaP,Tdap,and Td Vaccines (2 - Td or Tdap) 06/12/2034 06/12/2024 [facility]-Influenza Vaccine Completed 06/12/2024, 020 [facility]-Hepatitis C Screening Completed 09/29/2024, 09/2018 [facility]-Obesity Intervention Completed 025, 12/11/2024, 12/01/2024, Additional history exists HPV Vaccines Aged Out No longer eligi ble based on patient's age to complete this topic [facility]-HIB Vaccines Aged Out No longer e ligible based on patient's age to complete this topic [facility]-Hepatitis A Vaccines Aged Out No longer eligible based on patient's age to complete this topic [facility]-IPV Vaccines Aged Out No longer e ligible based on patient's age to complete this topic [facility]-Rotavirus Vaccines Aged Out No lo nger eligible based on patient's age to complete this topic Medical Devices Implanted Type Area Wheel Braider Device Identifier Shelf Expiration Date Model / Serial / Lot Port Clearvue Power 8fr - [id number] Implanted:Qty: 1 on 12/01/2024 [id number] / / Procedures Procedure Name Priority Date/Time Associated Diagnosis [...] 8:53 AM EDT Myelodysplasia (myelodysplastic syndrome) (CMS/HCC) TYPE AND SCREEN Routine 12/20/2024 10:03 AM EDT SOB (shortness of breath) PREPARE RBC Routine 12/20/2024 10:01 AM EDT Myelodysplasia (myelodysplastic syndrome) (CMS/HCC) Thrombocytopenia (CMS/HCC) CBC WITH AUTO DIFFERENTIAL Routine 12/20/2024 9:00 AM EDT Myelodysplasia (myelodysplastic syndrome) (CMS/HCC) PLATELET COUNT, BLOOD Routine 12/18/2024 10:55 AM EDT Myelodysplasia (myelodysplastic syndrome) (CMS/HCC) TRANSFUSE PLATELETS Routine 12/18/2024 1 0:25 AM EDT Myelodysplasia (myelodysplastic syndrome) (CMS/HCC) Thrombocytopenia (CMS/HCC) PREPARE PLATELETS Routine 12/18/2024 9:4 5 AM EDT Myelodysplasia (myelodysplastic syndrome) (CMS/HCC) Thrombocytopenia (CMS/HCC) COMPREHENSIVE METABOLIC PANEL, PLASMA Routine 12/18/2024 9:14 AM EDT Myelodysplasia (myelodysplastic syndrome) (CMS/HCC) CBC WITH AUTO DIFFERENTIAL Routine 12/18/2024 9:14 AM EDT Myelodysplasia (myelodysplastic syndrome) (CMS/HCC) EXCEPTION TO STANDARD PRACTICE, PATHOLOGIST INTERPRETATION Routine 12/18/2024 8:26 AM EDT Myelodysplasia (myelodysplastic syndrome) (CMS/HCC) PLATELET COUNT, BLOOD STAT 12/16/2024 12:23 PM [...] EDT Myelodysplasia (myelodysplastic syndrome) (CMS/HCC) Thrombocytopenia (CMS/HCC) STREPTOCOCCUS CULTURE Routine 12/16/2024 9:40 AM EDT Myelodysplasia (myelodysplastic syndrome) (CMS/HCC) GROUP A STREPTOCOCCUS BY PCR Routine 12/16/2024 9:40 AM EDT Myelodysplasia (myelodysplastic syndrome) (CMS/HCC) URIC [...] 8:10 AM EDT Myelodysplasia (myelodysplastic syndrome) (CMS/HCC) CBC WITH AUTO DIFFERENTIAL Routine 12/16/2024 8:10 AM EDT Myelodysplasia (myelodysplastic syndrome) (CMS/HCC) PLATELET COUNT, BLOOD STAT 12/11/2024 2:04 PM EDT EXCEPTION TO STANDARD PRACTICE, PATHOLOGIST INTERPRETATION Routine 12/11/2024 1:13 PM EDT Port-A-Cath in place PREPARE PLATELETS Routine 12/11/2024 12: 57 PM EDT Myelodysplasia (myelodysplastic syndrome) (CMS/HCC) Thrombocytopenia (CMS/HCC) MORPHOLOGY Routine 12/11/2024 8:38 AM EDT Myelodysplasia (myelodysplastic syndrome) (CMS/HCC) MANUAL DIFFERENTIAL Routine 12/11/2024 8 :38 AM EDT Myelodysplasia (myelodysplastic syndrome) (CMS/HCC) PERIPHERAL BLOOD SMEAR, PATHOLOGIST INTERPRETATION Routine 12/11/2024 8:38 AM EDT Myelodysplasia (myelodysplastic syndrome) (CMS/HCC) CBC WITH AUTO DIFFERENTIAL Routine 12/11/2024 8:38 AM EDT Myelodysplasia (myelodysplastic syndrome) (CMS/HCC) COMPREHENSIVE METABOLIC PANEL, PLASMA Routine 12/11/2024 8:38 AM EDT Myelodysplasia (myelodysplastic syndrome) (CMS/HCC) PREPARE RBC Routine 12/09/2024 1:17 PM EDT Myelodysplasia (myelodysplastic syndrome) (CMS/HCC) Thrombocytopenia (CMS/HCC) BONE MARROW EXAM Routine 12/09/2024 10:1 5 AM EDT Myelodysplasia (myelodysplastic syndrome) (CMS/HCC) CHROMOSOME KARYOTYPE, ONCOLOGY Routine 12/09/2024 10:15 AM EDT Myelodysplasia (myelodysplastic syndrome) (CMS/HCC) CYTOGENETICS TESTING, ONCOLOGY Routine 12/09/2024 10:15 AM EDT Myelodysplasia (myelodysplastic syndrome) (CMS/HCC) LEUKEMIA/LYMPHOMA - IMMUNOPHENOTYPING BY FLOW CYTOMETRY Routine 12/09/2024 10:15 AM EDT Myelodysplasia (myelodysplastic syndrome) (CMS/HCC) BIOPSY [...] 8:45 AM EDT Myelodysplasia (myelodysplastic syndrome) (CMS/HCC) IR PORT PLACEMENT 5+ YEARS Routine 12/01/2024 11:43 AM EDT Myelodysplasia (myelodysplastic syndrome) (CMS/HCC) TRANSFUSE PLATELETS Timed 12/01/2024 1 1:00 AM EDT EXCEPTION TO STANDARD PRACTICE, PATHOLOGIST INTERPRETATION Routine 12/01/2024 10:37 AM EDT Thrombocytopenia (CMS/HCC) WBC DIFFERENTIAL Routine 12/01/2024 9:39 AM EDT CBC W/O DIFFERENTIAL STAT 12/01/2024 9:39 AM EDT PREPARE PLATELETS Timed 12/01/2024 8:5 2 AM EDT PROTHROMBIN TIME(PT) / INR Routine 11/26/2024 10:51 AM EDT Preop examination TRANSFUSE RED BLOOD CELLS Routine 2024 4:44 PM EDT Myelodysplasia (myelodysplastic syndrome) (CMS/HCC) [...] (CMS/HCC) Thrombocytopenia (CMS/HCC) TYPE AND SCREEN Routine 11/24/2024 2:07 PM EDT COMPREHENSIVE METABOLIC PANEL, PLASMA Routine 11/24/2024 2:07 PM EDT Myelodysplasia (myelodysplastic syndrome) (CMS/HCC) CBC WITH AUTO DIFFERENTIAL Routine 11/24/2024 2:07 PM EDT Myelodysplasia (myelodysplastic syndrome) (CMS/HCC) PLATELET COUNT, BLOOD Routine 11/22/2024 4:24 PM EDT EXCEPTION TO STANDARD PRACTICE, PATHOLOGIST INTERPRETATION Routine 11/22/2024 3:27 PM EDT Myelodysplasia (myelodysplastic syndrome) (CMS/HCC) PREPARE PLATELETS Routine 11/22/2024 3:1 8 PM EDT Myelodysplasia (myelodysplastic syndrome) (CMS/HCC) Thrombocytopenia (CMS/HCC) COMPREHENSIVE METABOLIC PANEL, PLASMA Routine 11/22/2024 2:24 PM EDT Myelodysplasia (myelodysplastic syndrome) (CMS/HCC) CBC WITH AUTO DIFFERENTIAL Routine 11/22/2024 2:24 PM EDT Myelodysplasia (myelodysplastic syndrome) (CMS/HCC) PLATELET COUNT, BLOOD STAT 11/20/2024 6:15 PM EDT TRANSFUSE PLATELETS Routine 11/20/2024 5 :09 PM EDT Myelodysplasia (myelodysplastic syndrome) (CMS/HCC) Thrombocytopenia (CMS/HCC) EXCEPTION TO STANDARD PRACTICE, PATHOLOGIST INTERPRETATION Routine 11/20/2024 4:44 PM EDT Myelodysplasia (myelodysplastic syndrome) (CMS/HCC) TRANSFUSE RED BLOOD CELLS Routine 2024 2:58 PM EDT Myelodysplasia (myelodysplastic syndrome) (CMS/HCC) [...] 1:49 PM EDT Myelodysplasia (myelodysplastic syndrome) (CMS/HCC) TRANSFUSE RED BLOOD CELLS Routine 2024 2:10 PM EDT Myelodysplasia (myelodysplastic syndrome) (CMS/HCC) [...] (CMS/HCC) Thrombocytopenia (CMS/HCC) TYPE AND SCREEN Routine 11/18/2024 12:21 PM EDT Myelodysplasia (myelodysplastic syndrome) (CMS/HCC) CBC WITH AUTO DIFFERENTIAL Routine 11/18/2024 10:00 AM EDT Myelodysplasia (myelodysplastic syndrome) (CMS/HCC) COMPREHENSIVE METABOLIC PANEL, PLASMA Routine 11/18/2024 10:00 AM EDT Myelodysplasia (myelodysplastic syndrome) (CMS/HCC) PLATELET COUNT, BLOOD STAT 11/10/2024 4:54 PM EDT Myelodysplasia (myelodysplastic syndrome) (CMS/HCC) PREPARE PLATELETS Routine 11/10/2024 3:3 2 PM EDT Myelodysplasia (myelodysplastic syndrome) (CMS/HCC) Thrombocytopenia (CMS/HCC) BONE MARROW EXAM Routine 11/10/2024 2:30 PM EDT Myelodysplasia (myelodysplastic syndrome) (CMS/HCC) CHROMOSOME KARYOTYPE, ONCOLOGY Routine 11/10/2024 2:30 PM EDT Myelodysplasia (myelodysplastic syndrome) (CMS/HCC) CYTOGENETICS TESTING, ONCOLOGY Routine 11/10/2024 2:30 PM EDT Myelodysplasia (myelodysplastic syndrome) (CMS/HCC) LEUKEMIA/LYMPHOMA - IMMUNOPHENOTYPING BY FLOW CYTOMETRY Routine 11/10/2024 2:30 PM EDT Myelodysplasia (myelodysplastic syndrome) (CMS/HCC) BIOPSY BONE MARROW Routine 11/10/2024 2: 00 PM EDT Myelodysplasia (myelodysplastic syndrome) (CMS/HCC) COMPREHENSIVE METABOLIC PANEL, PLASMA Routine 11/10/2024 1:39 PM EDT Myelodysplasia (myelodysplastic syndrome) (CMS/HCC) CBC WITH AUTO DIFFERENTIAL Routine 11/10/2024 1:39 PM EDT Myelodysplasia (myelodysplastic syndrome) (CMS/HCC) N-TERMINAL PROBNP, PLASMA Routine 2024 11:01 AM EDT Dyspnea on exertion ECG ADULT Routine 11/05/2024 10:10 AM EDT Pre-transplant evaluation for stem cell transplant TRANSFUSE PLATELETS STAT 11/03/2024 5 :00 PM EDT URINE CROSS PANEL STAT 11/03/2024 4:05 PM EDT URINALYSIS WITH REFLEX MICROSCOPIC STAT 11/03/2024 4:05 PM EDT URINALYSIS WITH REFLEX MICROSCOPIC AND CULTURE STAT 11/03/2024 4:05 PM EDT TRANSFUSE RED BLOOD CELLS STAT 2024 3:[address] HEAD WO IV [...] LACTATE, VENOUS STAT 11/03/2024 2:25 PM EDT TYPE AND SCREEN STAT 11/03/2024 2:25 PM EDT CBC WITH AUTO DIFFERENTIAL STAT 11/03/2024 2:25 PM EDT COMPREHENSIVE METABOLIC PANEL, PLASMA STAT 11/03/2024 2:25 PM EDT ECG ADULT STAT 11/03/2024 12:50 PM EDT PLATELET COUNT, BLOOD Routine 10/26/2024 4:17 PM EDT Myelodysplasia (myelodysplastic syndrome) (CMS/HCC) TRANSFUSE PLATELETS Routine 10/26/2024 3 :15 PM EDT Myelodysplasia (myelodysplastic syndrome) (CMS/HCC) Thrombocytopenia (CMS/HCC) EXCEPTION TO STANDARD PRACTICE, PATHOLOGIST INTERPRETATION Routine 10/26/2024 3:08 PM EDT Myelodysplasia (myelodysplastic syndrome) (CMS/HCC) PREPARE PLATELETS Routine 10/26/2024 2:5 1 PM EDT Myelodysplasia (myelodysplastic syndrome) (CMS/HCC) Thrombocytopenia (CMS/HCC) CBC WITH AUTO DIFFERENTIAL Routine 10/26/2024 1:48 PM EDT Myelodysplasia (myelodysplastic syndrome) (CMS/HCC) COMPREHENSIVE METABOLIC PANEL, PLASMA Routine 10/26/2024 1:48 PM EDT Myelodysplasia (myelodysplastic syndrome) (CMS/HCC) MORPHOLOGY Routine 10/25/2024 3:03 PM EDT Myelodysplasia (myelodysplastic syndrome) (CMS/HCC) CBC WITH AUTO DIFFERENTIAL Routine 10/25/2024 3:03 PM EDT Myelodysplasia (myelodysplastic syndrome) (CMS/HCC) CBC WITH AUTO DIFFERENTIAL Routine 10/24/2024 2:24 PM EDT Myelodysplasia (myelodysplastic syndrome) (CMS/HCC) PLATELET COUNT, BLOOD STAT 10/22/2024 6:33 PM EDT TRANSFUSE PLATELETS Routine 10/22/2024 5 :25 PM EDT Thrombocytopenia (CMS/HCC) Myelodysplasia (myelodysplastic syndrome) (CMS/HCC) EXCEPTION TO STANDARD PRACTICE, PATHOLOGIST INTERPRETATION Routine 10/22/2024 5:11 PM EDT Thrombocytopenia (CMS/HCC) PREPARE PLATELETS Routine 10/22/2024 4:5 4 PM EDT Thrombocytopenia (CMS/HCC) Myelodysplasia (myelodysplastic syndrome) (CMS/HCC) CBC WITH AUTO DIFFERENTIAL Routine 10/22/2024 3:50 PM EDT Myelodysplasia (myelodysplastic syndrome) (CMS/HCC) BASIC METABOLIC PANEL, PLASMA Routine 10/22/2024 3:50 PM EDT Myelodysplasia (myelodysplastic syndrome) (CMS/HCC) URIC ACID, PLASMA Routine 10/22/2024 3:5 0 PM EDT Myelodysplasia (myelodysplastic syndrome) (CMS/HCC) PHOSPHORUS, PLASMA Routine 10/22/2024 3: 50 PM EDT Myelodysplasia (myelodysplastic syndrome) (CMS/HCC) MAGNESIUM, PLASMA Routine 10/22/2024 3:5 0 PM EDT Myelodysplasia (myelodysplastic syndrome) (CMS/HCC) LACTATE DEHYDROGENASE, PLASMA Routine 10/22/2024 3:50 PM EDT Myelodysplasia (myelodysplastic syndrome) (CMS/HCC) LACTATE DEHYDROGENASE, PLASMA STAT 10/21/2024 3:27 PM EDT MAGNESIUM, PLASMA STAT 10/21/2024 3:2 7 PM EDT PHOSPHORUS, PLASMA STAT 10/21/2024 3: 27 PM EDT URIC ACID, PLASMA STAT 10/21/2024 3:2 7 PM EDT BASIC METABOLIC PANEL, PLASMA STAT 10/21/2024 3:27 PM EDT CBC WITH AUTO DIFFERENTIAL Routine 10/21/2024 3:27 PM EDT Myelodysplasia (myelodysplastic syndrome) (CMS/HCC) SOB (shortness of breath) CT HEAD WO IV CONTRAST Routine 6:24 PM EDT Myelodysplasia (myelodysplastic syndrome) (CMS/HCC) TSH Add-On 10/20/2024 2:48 PM EDT Myelodysplasia (myelodysplastic syndrome) (CMS/HCC) SOB (shortness of breath) N-TERMINAL PROBNP, PLASMA Add-On 2024 2:48 PM EDT COMPREHENSIVE METABOLIC PANEL, PLASMA Routine 10/20/2024 2:48 PM EDT Myelodysplasia (myelodysplastic syndrome) (CMS/HCC) CBC WITH AUTO DIFFERENTIAL Routine 10/20/2024 2:48 PM EDT Myelodysplasia (myelodysplastic syndrome) (CMS/HCC) URIC ACID, PLASMA Routine 10/20/2024 2:4 8 PM EDT Myelodysplasia (myelodysplastic syndrome) (CMS/HCC) PHOSPHORUS, PLASMA Routine 10/20/2024 2: 48 PM EDT Myelodysplasia (myelodysplastic syndrome) (CMS/HCC) MAGNESIUM, PLASMA Routine 10/20/2024 2:4 8 PM EDT Myelodysplasia (myelodysplastic syndrome) (CMS/HCC) LACTATE DEHYDROGENASE, PLASMA Routine 10/20/2024 2:48 PM EDT Myelodysplasia (myelodysplastic syndrome) (CMS/HCC) BONE MARROW EXAM CONSULT Routine 025 1:27 PM EDT Abnormal finding of blood chemistry, unspecified LACTATE DEHYDROGENASE, PLASMA Routine 10/13/2024 1:34 PM EDT Myelodysplasia (myelodysplastic syndrome) (CMS/HCC) COMPREHENSIVE METABOLIC PANEL, PLASMA Routine 10/13/2024 1:34 PM EDT Myelodysplasia (myelodysplastic syndrome) (CMS/HCC) CBC WITH AUTO DIFFERENTIAL Routine 10/13/2024 1:34 PM EDT Myelodysplasia (myelodysplastic syndrome) (CMS/HCC) DNA ISOLATION AND HOLD (HLA) Routine 10/02/2024 2:05 PM EDT Myelodysplasia (myelodysplastic syndrome) (CMS/HCC) HLA-NGS HIGH RESOLUTION TYPING BMT PATIENT Routine 10/02/2024 2:05 PM EDT Myelodysplasia (myelodysplastic syndrome) (CMS/HCC) NM MYOCARDIAL SPECT REGADENOSON STRESS (MULTI STUDY) Routine 10/02/2024 12:59 PM EDT Coronary artery disease involving [place] heart with angina pectoris, unspecified vessel or lesion type (CMS/HCC) Chest pain, unspecified type DNA ISOLATION AND HOLD (HLA) Routine 09/29/2024 12:51 PM EDT Myelodysplasia (myelodysplastic syndrome) (CMS/HCC) HLA LOW RES SSP PATIENT Routine 09/30/19 25 12:51 PM EDT Myelodysplasia (myelodysplastic syndrome) (CMS/HCC) HIV 1/2 ANTIBODY/ANTIGEN SCREEN WITH REFLEX TO HIV I/II DIFFERENTIATION Routine 09/29/2024 12:51 PM EDT Myelodysplasia (myelodysplastic syndrome) (CMS/HCC) HEPATITIS C ANTIBODY W/REFLEX TO HCV QUANT PCR Routine 09/29/2024 12:51 PM EDT Myelodysplasia (myelodysplastic syndrome) (CMS/HCC) HLA LOW RESOLUTION TYPING Routine 2024 12:51 PM EDT Myelodysplasia (myelodysplastic syndrome) (CMS/HCC) ABO/RH Routine 09/29/2024 12:51 PM EDT Myelodysplasia (myelodysplastic syndrome) (CMS/HCC) HIV 1/2 ANTIBODY/ANTIGEN SCREEN W/REFLEX TO HIV 1/2 ANTIBODY DIFFERENTIATION Routine 09/29/2024 12:51 PM EDT Myelodysplasia (myelodysplastic syndrome) (CMS/HCC) HEPATITIS B CORE TOTAL AB (IGG AND IGM) Routine 09/29/2024 12:51 PM EDT Myelodysplasia (myelodysplastic syndrome) (CMS/HCC) HEPATITIS B SURFACE ANTIBODY, QUANTITATIVE Routine 09/29/2024 12:51 PM EDT Myelodysplasia (myelodysplastic syndrome) (CMS/HCC) HEPATITIS B SURFACE ANTIGEN Routine 09/29/2024 12:51 PM EDT Myelodysplasia (myelodysplastic syndrome) (CMS/HCC) HAPTOGLOBIN, SERUM Routine 09/29/2024 12 :51 PM EDT Myelodysplasia (myelodysplastic syndrome) (CMS/HCC) APTT Routine 09/29/2024 12:51 PM EDT Myelodysplasia (myelodysplastic syndrome) (CMS/HCC) PROTHROMBIN TIME(PT) / INR Routine 09/29/2024 12:51 PM EDT Myelodysplasia (myelodysplastic syndrome) (CMS/HCC) URIC ACID, PLASMA Routine 09/29/2024 12: 51 PM EDT Myelodysplasia (myelodysplastic syndrome) (CMS/HCC) PHOSPHORUS, PLASMA Routine 09/29/2024 12 :51 PM EDT Myelodysplasia (myelodysplastic syndrome) (CMS/HCC) MAGNESIUM, PLASMA Routine 09/29/2024 12: 51 PM EDT Myelodysplasia (myelodysplastic syndrome) (CMS/HCC) LACTATE DEHYDROGENASE, PLASMA Routine 09/29/2024 12:51 PM EDT Myelodysplasia (myelodysplastic syndrome) (CMS/HCC) COMPREHENSIVE METABOLIC PANEL, PLASMA Routine 09/29/2024 12:51 PM EDT Myelodysplasia (myelodysplastic syndrome) (CMS/HCC) CBC WITH AUTO DIFFERENTIAL Routine 09/29/2024 12:51 PM EDT Myelodysplasia (myelodysplastic syndrome) (CMS/HCC) from Last 3 Months Results * Transfuse platelets (12/22/2024 12:04 PM EDT) Only the most recent of12 resultswithin the time period is included. Kayli CHIU BLOOD TRANSFUSION ORDERA BLES Final Result * (ABNORMAL) Platelet count (12/22/2024 10:57 AM EDT) Only the most recent of11 resultswithin the time period is included. [facility] Platelet Count 36(L) 155 - 369 10*3/uL LAB HEMATOLOGY METHOD 12/22/2024 11:14 AM EDT [facility] Blood Venous blood specimen / Unknown Venipuncture / Unknown 12/22/2024 10:57 AM EDT 12/22/2024 11:04 AM EDT Virgen Vargas MD LAB BLOOD ORDERABLES Final Re sult [facility] [address] [place] [address] * Prepare Leukocyte Reduced Platelets: 1 Units (12/22/2024 9:44 AM EDT) Only the most recent of13 resultswithin the time period is included. Pathologist [facility] Product Code [id number] CH BLOO D BANK Dispense Status Transfused BLOOD BANK Blood Expiration Date [id number] BLOOD BANK Unit Number [id number] CH B LOOD BANK Product Blood Type 0600 BLOOD BANK Blood Type A- CH BLOOD BANK Blood Venous blood specimen / Unknown Kayli CHIU BLOOD BANK PRODUCT ORDER VIKAS Final Result BLOOD BANK [address] [place] [address], * (ABNORMAL) CBC and Differential (12/22/2024 8:53 AM EDT) Only the most recent of20 resultswithin the time period is included. WBC Count 0.50(LL) 3.70 - 10.30 10*3/uL LAB HEMATOLOGY METHOD 12/22/2024 11:33 AM EDT [facility] RBC Count 2.90(L) 4.60 - 6.10 10*6/uL LAB HEMATOLOGY METHOD 12/22/2024 11:33 AM EDT [facility] HGB 8.9(L) 13.7 - 17.5 g/dL LAB HEMATOLOGY METHOD 12/22/2024 11:33 AM EDT [facility] HCT 25.0(L) 40.0 - 51.0 % LAB HEMATOLOGY METHOD 12/22/2024 11:33 AM EDT [facility] Platelet Count 5(LL) 155 - 369 10*3/uL LAB HEMATOLOGY METHOD 12/22/2024 11:33 AM EDT [facility] MCV 86 79 - 98 fL LAB HEMATOLOGY METHOD 12/22/2024 11:33 AM EDT [facility] MCH 30.7 26.0 - 32.0 pg LAB HEMATOLOGY METHOD 12/22/2024 11:33 AM EDT [facility] MCHC 35.6(H) 30.7 - 35.5 g/dL LAB HEMATOLOGY METHOD 12/22/2024 11:33 AM EDT [facility] RDW 15.6(H) 11.5 - 14.5 % LAB HEMATOLOGY METHOD 12/22/2024 11:33 AM EDT [facility] MPV LAB HEMATOLOGY METHOD 12/22/2024 11:33 AM EDT [facility] Comment:Not Measured nRBC 0.0 <=0.0 per 100 WBCs LAB HEMATOLOGY METHOD 12/22/2024 11:33 AM EDT [facility] Differential Type Automated LAB HEMATOLOGY METHOD 12/22/2024 11:33 AM EDT [facility] Neutrophils % 12 % LAB HEMATOLOGY METHOD 12/22/2024 11:33 AM EDT [facility] Lymphocytes % 86 % LAB HEMATOLOGY METHOD 12/22/2024 11:33 AM EDT [facility] Monocytes % 2 % LAB HEMATOLOGY METHOD 12/22/2024 11:33 AM EDT [facility] Eosinophils % 0 % LAB HEMATOLOGY METHOD 12/22/2024 11:33 AM EDT [facility] Basophils % 0 % LAB HEMATOLOGY METHOD 12/22/2024 11:33 AM EDT [facility] Immature Granulocytes % 0 % LAB HEMATOLOGY METHOD 12/22/2024 11:33 AM EDT [facility] Neutrophils Absolute 0.06(LL) 1.60 - 6.10 10*3/uL LAB HEMATOLOGY METHOD 12/22/2024 11:33 AM EDT [facility] Lymphocytes Absolute 0.43(L) 1.20 - 3.90 10*3/uL LAB HEMATOLOGY METHOD 12/22/2024 11:33 AM EDT [facility] Monocytes Absolute 0.01(L) 0.30 - 0.90 10*3/uL LAB HEMATOLOGY METHOD 12/22/2024 11:33 AM EDT [facility] Eosinophils Absolute 0.00 0.00 - 0.50 10*3/uL LAB HEMATOLOGY METHOD 12/22/2024 11:33 AM EDT [facility] Basophils Absolute 0.00 0.00 - 0.10 10*3/uL LAB HEMATOLOGY METHOD 12/22/2024 11:33 AM EDT [facility] Immature Granulocytes Absolute 0.00 0.00 - 0.06 10*3/uL LAB HEMATOLOGY METHOD 12/22/2024 11:33 AM EDT [facility] Blood Venous blood specimen / Unknown Venipuncture / Unknown 12/22/2024 8:53 AM EDT 12/22/2024 8:59 AM EDT [facility] - 12/22/2024 11:33 AM EDT Therapeutic decision making should be based on absolute values, rather than percentages. us Virgen Vargas MD LAB BLOOD ORDERABLES Final Re sult [facility] [address] [place] [address] * (ABNORMAL) Comprehensive Metabolic Panel, Plasma (12/22/2024 8:53 AM EDT) Only the most recent of15 resultswithin the time period is included. Glucose, Plasma 107(H) 74 - 99 mg/dL 12/22/2024 9:29 AM EDT [facility] BUN, Plasma 14 8 - 23 mg/dL 12/22/2024 9:29 AM EDT [facility] Creatinine, Plasma 0.93 0.70 - 1.20 mg/dL 12/22/2024 9:29 AM EDT [facility] BUN/Creatinine Ratio 15 12/22/2024 9:29 AM EDT [facility] Sodium, Plasma 136 136 - 145 mmol/L 12/22/2024 9:29 AM EDT [facility] Potassium, Plasma 4.3 3.6 - 4.9 mmol/L 12/22/2024 9:29 AM EDT [facility] Chloride, Plasma 106 97 - 107 mmol/L 12/22/2024 9:29 AM EDT [facility] CO2, Plasma 22 22 - 29 mmol/L 12/22/2024 9:29 AM EDT [facility] Anion Gap 8 6 - 16 mmol/L 12/22/2024 9:29 AM EDT [facility] Total Calcium, Plasma 9.1 8.9 - 10.2 mg/dL 12/22/2024 9:29 AM EDT [facility] Total Protein 7.0 6.3 - 7.9 g/dL 12/22/2024 9:29 AM EDT [facility] Albumin, Plasma 3.9 3.5 - 5.2 g/dL 12/22/2024 9:29 AM EDT [facility] AST, Plasma 16 10 - 50 U/L 12/22/2024 9:29 AM EDT [facility] ALT, Plasma 12 10 - 50 U/L 12/22/2024 9:29 AM EDT [facility] Alkaline Phosphatase, Plasma 83 40 - 115 U/L 12/22/2024 9:29 AM EDT [facility] Total Bilirubin, Plasma 0.7 0.2 - 1.1 mg/dL 12/22/2024 9:29 AM EDT [facility] eGFRcr 88.9 mL/min/1.7 3m*2 12/22/2024 9:29 AM EDT [facility] Comment:Reported eGFRcr in m L/min/1.73m2 is based the CKD-EPI 2020 equation that does not use a race coefficient. Blood Venous blood specimen / Unknown Venipuncture / Unknown 12/22/2024 8:53 AM EDT 12/22/2024 8:59 AM EDT Virgen Vargas MD LAB BLOOD ORDERABLES Final Re sult [facility] [address] [place] [address] * Transfuse RBC, Irradiated (12/20/2024 1:31 PM EDT) Only the most recent of7 resultswithin the time period is included. Kayli [facility] BLOOD TRANSFUSION ORDERA BLES Final Result * Type and screen (12/20/2024 10:03 AM EDT) Only the most recent of6 resultswithin the time period is included. ABO/Rh O Negative 12/20/2024 10:03 AM EDT BLOOD BANK Antibody Screen Negative 12/20/2024 10:03 AM EDT BLOOD BANK Specimen Expiration 12/23/2024 23:59 12/20/2024 10:03 AM EDT BLOOD BANK Blood Venous blood specimen / Unknown (Central Line) Existing Catheter / Unknown 12/20/2024 10:03 AM EDT 12/20/2024 10:12 AM EDT Virgen Vargas MD LAB BLOOD BANK TEST ORDERABLE S Final Result Performing Organization Address City/[facility]/ZIP Co de Phone Number BLOOD BANK [address] [place] [address], * Prepare Leukocyte Reduced RBC: 1 Units, Irradiated (12/20/2024 10:01 AM EDT) Only the most recent of7 resultswithin the time period is included. Product Code [id number] BLOO D BANK Dispense Status Transfused BLOOD BANK Blood Expiration Date [id number] BLOOD BANK Unit Number [id number] [facility] B LOOD BANK Product Blood Type 9500 BLOOD BANK Blood Type O- BLOOD BANK Crossmatch Compatible BLOOD BANK Other us Kayli [facility] BLOOD BANK PRODUCT ORDER VIKAS Final Result Performing Organization Address City/[facility]/ZIP Co de Phone Number BLOOD BANK [address] [place] [address], * Exception to Standard Practice, Pathologist Interpretation (12/18/2024 8:26 AM EDT) Only the most recent of11 resultswithin the time period is included. Clinical Diagnosis, Exception to Standard Practice AML [...] ORDERAB LES Final Result BLOOD BANK [address] [place] [address], * Group A Streptococcus by PCR (12/16/2024 9:40 AM EDT) Group A Streptococcus PCR Result Not Detected Not Detected 12/16/2024 11:53 AM EDT [facility] Swab Pharyngeal structure / Unknown Non-blood Collection / Unknown 12/16/2024 9:40 AM EDT 12/16/2024 10:10 AM EDT us Isaura Wynn APRN LAB MICROBIOLOGY - GENERAL ORD ERABLES Final Result Performing Organization Address [facility] Co de Phone Number [facility] [address] [place] [address] * Streptococcus Culture (12/16/2024 9:40 AM EDT) Pathologist [facility] Culture Reading Strep A No Streptococcus pyogenes or Streptococcus dysgalactiae isolated 12/17/2024 2:28 PM EDT [facility] Swab Pharyngeal structure / Unknown Non-blood Collection / Unknown 12/16/2024 9:40 AM EDT 12/16/2024 10:10 AM EDT us Isaura Wynn APRN LAB MICROBIOLOGY - GENERAL ORD ERABLES Final Result Performing Organization Address [facility] de Phone Number [facility] [address] [place] [address] * (ABNORMAL) Uric acid (12/16/2024 8:10 AM EDT) Only the most recent of5 resultswithin the time period is included. Uric Acid, Plasma 3.0(L) 3.7 - 8.0 mg/dL 12/16/2024 8:58 AM EDT [facility] Blood Venous blood specimen / Unknown Venipuncture / Unknown 12/16/2024 8:10 AM EDT 12/16/2024 8:27 AM EDT us Isaura Wynn APRN LAB BLOOD ORDERABLES Final Res ult Performing Organization Address City/[facility] Co de Phone Number [facility] [address] [place] [address] * Phosphorus, Plasma (12/16/2024 8:10 AM EDT) Only the most recent of5 resultswithin the time period is included. Phosphorus, Plasma 3.4 2.5 - 4.5 mg/dL 12/16/2024 8:58 AM EDT [facility] Blood Venous blood specimen / Unknown Venipuncture / Unknown 12/16/2024 8:10 AM EDT 12/16/2024 8:27 AM EDT Isaura Wynn APRN LAB BLOOD ORDERABLES Final Res ult Performing Organization Address [facility] de Phone Number [facility] [address] [place] [address] * Magnesium, Plasma (12/16/2024 8:10 AM EDT) Only the most recent of5 resultswithin the time period is included. Magnesium, Plasma 2.4 1.9 - 2.4 mg/dL 12/16/2024 8:58 AM EDT [facility] Blood Venous blood specimen / Unknown Venipuncture / Unknown 12/16/2024 8:10 AM EDT 12/16/2024 8:27 AM EDT Isaura Wynn APRN LAB BLOOD ORDERABLES Final Res ult Performing Organization Address [facility] Co de Phone Number [facility] [address] [place] [address] * Lactate Dehydrogenase, Plasma (12/16/2024 8:10 AM EDT) Only the most recent of6 resultswithin the time period is included. LDH, Plasma 230 116 - 250 U/L 12/16/2024 8:58 AM EDT [facility] Blood Venous blood specimen / Unknown Venipuncture / Unknown 12/16/2024 8:10 AM EDT 12/16/2024 8:27 AM EDT us Isaura Wynn APRN LAB BLOOD ORDERABLES Final Res ult [facility] [address] [place] [address] * Morphology (12/11/2024 8:38 AM EDT) Only the most recent of5 resultswithin the time period is included. Elliptocytes/ Ovalocytes Present LAB HEMATOLOGY METHOD 12/11/2024 10:53 AM EDT [facility] RBC Morphology Slide Reviewed LAB HEMATOLOGY METHOD 12/11/2024 10:53 AM EDT [facility] Platelet Estimate Platelet smear estimate consistent with automated count LAB HEMATOLOGY METHOD 12/11/2024 10:53 AM EDT [facility] Blood Venous blood specimen / Unknown Venipuncture / Unknown 12/11/2024 8:38 AM EDT 12/11/2024 8:50 AM EDT Virgen Vargas MD LAB BLOOD ORDERABLES Final Re sult Performing Organization Address City/[facility]/ZIP Co de Phone Number [facility] [address] [place] [address] * (ABNORMAL) Manual Differential (12/11/2024 8:38 AM EDT) Only the most recent of3 resultswithin the time period is included. Blasts % 1 % LAB HEMATOLOGY METHOD 12/11/2024 10:53 AM EDT [facility] Promyelocytes % 0 % LAB HEMATOLOGY METHOD 12/11/2024 10:53 AM EDT [facility] Myelocytes % 0 % LAB HEMATOLOGY METHOD 12/11/2024 10:53 AM EDT [facility] Metamyelocytes % 0 % LAB HEMATOLOGY METHOD 12/11/2024 10:53 AM EDT [facility] Neutrophils % 4 % LAB HEMATOLOGY METHOD 12/11/2024 10:53 AM EDT [facility] Lymphocytes % 90 % LAB HEMATOLOGY METHOD 12/11/2024 10:53 AM EDT [facility] Reactive Lymphocytes % 3 % LAB HEMATOLOGY METHOD 12/11/2024 10:53 AM EDT [facility] Monocytes % 2 % LAB HEMATOLOGY METHOD 12/11/2024 10:53 AM EDT [facility] Eosinophils % [...] LAB HEMATOLOGY METHOD 12/11/2024 10:53 AM EDT [facility] Reactive Lymphocytes Absolute 0.02 10*3/uL LAB HEMATOLOGY METHOD 12/11/2024 10:53 AM EDT [facility] Monocytes Absolute 0.01(L) 0.30 - 0.90 10*3/uL LAB HEMATOLOGY METHOD 12/11/2024 10:53 AM EDT [facility] Eosinophils Absolute 0.00 0.00 - 0.50 10*3/uL LAB HEMATOLOGY METHOD 12/11/2024 10:53 AM EDT [facility] Basophils Absolute 0.00 0.00 - 0.10 10*3/uL LAB HEMATOLOGY METHOD 12/11/2024 10:53 AM EDT [facility] Blood Venous blood specimen / Unknown Venipuncture / Unknown 12/11/2024 8:38 AM EDT 12/11/2024 8:50 AM EDT us Virgen Vargas MD LAB BLOOD ORDERABLES Final Re sult [facility] [address] [place] [address] * Peripheral blood smear, pathologist interpretation (12/11/2024 8:38 AM EDT) Only the most recent of3 resultswithin the time period is included. Pathologist [facility] Clinical Diagnosis, Peripheral Smear History of acute [...] MD LAB PATHOLOGY ORDERABLES Terri lara Result Performing Organization Address City/State/[facility] Co de Phone Number [facility] [address] [place] [address] * Chromosome Karyotype, Oncology (12/09/2024 10:15 AM EDT) Only the most recent of2 resultswithin the time period is included. [facility] Specimen Type Bone Marrow 12/16/2024 5:59 PM EDT [facility] Clinical Indication Acute Myeloid Leukemia 12/16/2024 5:59 PM EDT [facility] Specimen Adequacy Adequate 025 5:59 PM EDT [facility] Chromosome Analysis Result Giemsa-banded metaphase cells from unstimulated bone marrow cultures showed the following chromosome pattern: 43~45,X,-Y,t(4;1 4)(q21;q32),add( 5)(q13),add(16)( q11.2),-17,add(2 0)(q11.2)[cp13]/ 46,XY[7] 12/16/2024 5:59 PM EDT [facility] Interpretation Abnormal male chromosome analysis. [...] were observed on this patient's previous specimen [facility]-[id number] and indicate persistent disease. Clinical correlation is recommended. Note: Per [employer] ([employer]) requirement additional karyotypes were performed and charged due to the presence of clonal abnormalities. # cells counted = 20 # cells analyzed = 20 # cells karyotyped = 3 Band resolution: 400 12/16/2024 5:59 PM EDT [facility] Pathologist Signature Reviewed by: Mesfin Rae 12/16/2024 5:59 PM EDT [facility] Bone Marrow Non-blood Collection / Unknown 12/09/2024 10:15 AM EDT 12/09/2024 12:48 PM EDT us Virgen Vargas MD LAB CYTOGENETICS ORDERABLES F inal Result [facility] [address] [place] [address] * Leukemia/Lymphoma - Immunophenotyping by Flow Cytometry (12/09/2024 10:15 AM EDT) Only the most recent of2 resultswithin the time period is included. Clinical Indication AML 12/10/2024 8:51 AM EDT [facility] Flow Cytometry Interpretation APPROXIMATELY 23% POPULATION OF CD34 POSITIVE MYELOID BLASTS EXPRESSING CD34, CD117, CD13, CD33, HLA-DR, PARTIAL CD7, VARIABLE CD123, PARTIAL CD38, AND MODERATE CD45, SEE COMMENT, BONE MARROW ASPIRATE. 12/10/2024 8:51 AM EDT [facility] Comments Specimen viability is 86.0%. [...] light chains, CD123 12/10/2024 8:51 AM EDT [facility] Disclaimer This test was developed and its performance characteristics determined by the Immuno-Molecular Pathology Laboratory at the [facility]. It has not been cleared or [...] on the report. 12/10/2024 8:51 AM EDT [facility] Pathologist Signature Reviewed by: Gerry Jensen MD 12/10/2024 8:51 AM EDT [facility] MRD Indicated Test Not Indicated 8:51 AM EDT [facility] Bone Marrow Specimen from bone marrow obtained by aspiration / Unknown Non-blood Collection / Unknown 12/09/2024 10:15 AM EDT 12/09/2024 11:28 AM EDT us Virgen Vargas MD LAB FLOW CYTOMETRY ORDERABLES Final Result [facility] [address] [place] [address] * Bone marrow exam (12/09/2024 10:15 AM EDT) Only the most recent of2 resultswithin the time period is included. Case Report Bone Marrow Case: [id number] Authorizing Provider: Virgen Vargas MD Collected: 12/09/2024 1015 Ordering Location: [facility] Hematology/BMT and Received: 12/09/2024 1145 Cellular Therapy Program Pathologist: Gerry Jensen MD Specimens: A) - Bone Marrow Aspirate, right B) - Bone Marrow Biopsy, right C) - Peripheral Blood for Bone Marrow 12/19/2024 5:35 PM EDT [facility] Cytogenetics Report, Addendum Chromosome Analysis [...] were observed on this patient's previous specimen [id number] and indicate persistent disease. 12/19/2024 5:35 PM EDT [facility] Addendum electronically signed by Gerry Jensen MD on 12/19/2024 at 1735 EDT Final Diagnosis PERIPHERAL BLOOD AND BONE MARROW, RIGHT POSTERIOR ILIAC CREST, (PERIPHERAL SMEAR, ASPIRATE SMEAR, AND CORE BIOPSY): - NORMOCELLULAR BONE MARROW WITH ERYTHROID HYPERPLASIA, VIRTUALLY ABSENT MATURING GRANULOPOIESIS, AND 14% BLASTS, SEE COMMENT. 12/19/2024 5:35 PM EDT [facility] at 1706 EDT Comment While by flow cytometric analysis blasts constitute 23% of cellularity, the majority of bone marrow cellularity consists of erythroid precursors that are removed by flow cytometry. This leads to the discrepancy between the percentage of blasts by flow cytometry and morphologic examination. Nonetheless, the findings are consistent with some residual disease. 12/19/2024 5:35 PM EDT [facility] Clinical Information AML s/p cycle 2 12/19/2024 5:35 PM EDT [facility] [...] Platelets are decreased. 12/19/2024 5:35 PM EDT [facility] Bone Marrow Differential BONE MARROW DIFFERENTIAL: 400 cells Normal Patient Neutrophils 15-50 0 Metamyelocytes 4-19 0 Myelocytes 1-18 1 Promyelocytes 1-8 0 Blasts 0-2 14 Monocytes 0-5 3 Erythroid 16-38 76 Lymphocytes 3-24 1 Eosinophils 0-6 0 Basophils 0-2 0 Plasma cells 0-4 5 Other 12/19/2024 5:35 PM EDT [facility] Aspirate Smear The bone marrow [...] predominantly normal morphology. 12/19/2024 5:35 PM T [facility] Core Biopsy The core biopsy is small and shows 5 mm of a normocellular bone marrow with a cellularity of approximately 30% that is predominantly comprised of erythroid precursors. Erythropoiesis is left-shifted, but maturing. Maturing granulopoiesis is virtually absent. Myeloid cells almost entirely consists of immature precursors. Megakaryocytes are decreased and exhibit predominantly normal morphology. 12/19/2024 5:35 PM T [facility] Flow Cytometry Interpretation Flow cytometric analysis shows approximately 23% population of CD34 positive myeloid blasts expressing CD34, CD117, CD13, CD33, HLA-DR, partial CD7, variable CD123, partial CD38, and moderate CD45 ([id number]). 12/19/2024 5:35 PM T [facility] Gross Description B. RIGHT A single specimen is received in formalin labeled bone marrow biopsy right posterior iliac crest and consists of 1 piece(s) of red/white tissue measuring 0.7 cm in length 0.2 cm in diameter. The specimen is submitted in to Histology for decalcification and routine processing. Cold Time: <1m 12/19/2024 5:35 PM T [facility] Note: A resident was involved in the service. I attest I examined the relevant preparations for the specimens and confirmed the diagnosis or interpretation. 12/19/2024 5:35 PM EDT [facility] [...] PATHOLOGY ORDERABLES Edit ed Result - Final [facility] [address] [place] [address] * BIOPSY BONE MARROW (12/09/2024 10:00 AM EDT) Narrative Kierra Novak APRN - 12/09/2024 10:00 AM EDT Kierra Novak APRN 12/09/2024 12:08 PM Biopsy bone marrow Date/Time: 12/09/2024 10:00 AM Performed by: Kierra Novak APRN Authorized by: Kierra Novak APRN Consent: Consent obtained: Written Consent given by: Patient Risks, benefits, and alternatives were discussed: yes Risks discussed: Bleeding, infection and pain [place] protocol: Procedure explained and questions answered to [...] Procedure completion: Tolerated well, no immediate complications us Kierra Novak APRN IN CLINIC/BEDSIDE ORDERAB LES Final Result * IR Port Placement 5+ Years (12/01/2024 [...] for port placement. New AML, starting chemotherapy. Operator Assistant I Cementing: Mckinley Lee MD Secondary Open Hearth Door Liner: Dr. David Holt Rad Dose: 6 mGy [...] was placed supine on the fluoro table. Operator Cavity Pump ultrasonography revealed the vein to be compressible [...] with no evidence of complication. Device: 6 Peruvian port catheter cut to length of 25 cm. COMPARISON: None. FINDINGS: Patent R IJV COMPLICATION: No. Procedure Note Mckinley Lee MD - 12/02/2024 CLINICAL INDICATION: 69M here for port placement. New AML, starting chemotherapy. Operator Assistant I Cementing: Mckinley Lee MD Secondary Open Hearth Door Liner: Dr. David Holt Rad Dose: 6 mGy [...] patient was placed supine on the fluoro table.Operator Cavity Pump ultrasonography revealed the vein to be compressible [...] well with no evidence ofcomplication. Device: 6 Peruvian port catheter cut to length of 25 [...] MD on 12/02/2024 7:02 AM Isaura Wynn ENGINE LATHE SET UP OPERATOR IMG IR PROCEDURES Final Result * (ABNORMAL) WBC Differential (12/01/2024 9:39 AM EDT) Differential Type Automated LAB HEMATOLOGY METHOD 12/01/2024 11:33 AM EDT [facility] Neutrophils % 9 % LAB HEMATOLOGY METHOD 12/01/2024 11:33 AM EDT [facility] Lymphocytes % 84 % LAB HEMATOLOGY METHOD 12/01/2024 11:33 AM EDT [facility] Monocytes % 6 % LAB HEMATOLOGY METHOD 12/01/2024 11:33 AM EDT [facility] Eosinophils % 1 % LAB HEMATOLOGY METHOD 12/01/2024 11:33 AM EDT [facility] Basophils % 0 % LAB HEMATOLOGY METHOD 12/01/2024 11:33 AM EDT [facility] Immature Granulocytes % 0 % LAB HEMATOLOGY METHOD 12/01/2024 11:33 AM EDT [facility] Immature Granulocytes Absolute 0.00 0.00 - 0.06 10*3/uL LAB HEMATOLOGY METHOD 12/01/2024 11:33 AM EDT [facility] Neutrophils Absolute 0.06(LL) 1.60 - 6.10 10*3/uL LAB HEMATOLOGY METHOD 12/01/2024 11:33 AM EDT [facility] Lymphocytes Absolute 0.59(L) 1.20 - 3.90 10*3/uL LAB HEMATOLOGY METHOD 12/01/2024 11:33 AM EDT [facility] Monocytes Absolute 0.04(L) 0.30 - 0.90 10*3/uL LAB HEMATOLOGY METHOD 12/01/2024 11:33 AM EDT [facility] Basophils Absolute 0.00 0.00 - 0.10 10*3/uL LAB HEMATOLOGY METHOD 12/01/2024 11:33 AM EDT [facility] Eosinophils Absolute 0.01 0.00 - 0.50 10*3/uL LAB HEMATOLOGY METHOD 12/01/2024 11:33 AM EDT [facility] Blood Venous blood specimen / Unknown Venipuncture / Unknown 12/01/2024 9:39 AM EDT 12/01/2024 9:56 AM EDT us Virgen Vargas MD LAB BLOOD ORDERABLES Final Re sult [facility] [address] [place] [address] * (ABNORMAL) CBC (12/01/2024 9:39 AM EDT) WBC Count 0.64(LL) 3.70 - 10.30 10*3/uL LAB HEMATOLOGY METHOD 12/01/2024 4:21 PM EDT [facility] RBC Count 2.29(L) 4.60 - 6.10 10*6/uL LAB HEMATOLOGY METHOD 12/01/2024 4:21 PM EDT [facility] HGB 7.6(L) 13.7 - 17.5 g/dL LAB HEMATOLOGY METHOD 12/01/2024 4:21 PM EDT [facility] HCT 20.9(L) 40.0 - 51.0 % LAB HEMATOLOGY METHOD 12/01/2024 4:21 PM EDT [facility] Platelet Count 14(LL) 155 - 369 10*3/uL LAB HEMATOLOGY METHOD 12/01/2024 4:21 PM EDT [facility] MCV 91 79 - 98 fL LAB HEMATOLOGY METHOD 12/01/2024 4:21 PM EDT [facility] MCH 33.2(H) 26.0 - 32.0 pg LAB HEMATOLOGY METHOD 12/01/2024 4:21 PM EDT [facility] MCHC 36.4(H) 30.7 - 35.5 g/dL LAB HEMATOLOGY METHOD 12/01/2024 4:21 PM EDT [facility] RDW 17.7(H) 11.5 - 14.5 % LAB HEMATOLOGY METHOD 12/01/2024 4:21 PM EDT [facility] MPV LAB HEMATOLOGY METHOD 12/01/2024 4:21 PM EDT [facility] Comment:Not Measured nRBC 0.0 <=0.0 per 100 WBCs LAB HEMATOLOGY METHOD 12/01/2024 4:21 PM EDT [facility] Blood Venous blood specimen / Unknown Venipuncture / Unknown 12/01/2024 9:39 AM EDT 12/01/2024 9:56 AM EDT us Mckinley Lee MD LAB BLOOD ORDERABLES Final R esult [facility] [address] [place] [address] * Protime-INR (11/26/2024 10:51 AM EDT) Only the most recent of2 resultswithin the time period is included. Prothrombin Time 13.8 12.0 - 14.3 sec LAB COAGULATION METHOD 11/26/2024 11:52 AM EDT [facility] INR 1.1 0.9 - 1.1 LAB COAGULATION METHOD 11/26/2024 11:52 AM EDT [facility] Blood Venous blood specimen / Unknown Venipuncture / Unknown 11/26/2024 10:51 AM EDT 11/26/2024 10:51 AM EDT Narrative [facility] - 11/26/2024 11:52 AM EDT OPTIMAL INR RANGES FOR PATIENT ON ORAL ANTICOAGULANT THERAPY Prevention of venous thromboembolism INR 2.0 to 3.0 In patients with heart disease: Atrial fibrillation INR 2.0 to 3.0 Valvular heart disease INR 2.0 to 3.0 Tissue heart valves INR 2.0 to 3.0 Mechanical prosthetic valves INR 2.5 to 3.5 Prevention of recurrent ID INR 2.5 to 3.5 us Latoya N Cheeks ENGINE LATHE SET UP OPERATOR LAB BLOOD ORDERABLES Final R esult Performing Organization Address [facility] Co de Phone Number [facility] [address] [place] [address] * BIOPSY BONE MARROW (11/10/2024 2:00 PM EDT) Narrative Elaina Boss PA - 11/10/2024 2:00 PM EDT Elaina Boss PA 11/10/2024 3:36 PM Biopsy bone marrow Performed by: Elaina Boss PA Authorized by: Elaina Boss PA us Elaina [facility] IN CLINIC/BEDSIDE ORDERABLE S Final Result * N-Terminal Probnp, Plasma (11/05/2024 11:01 AM EDT) Only the most recent of2 resultswithin the time period is included. N-Terminal, PROBNP, Plasma 672 0 - 899 pg/mL 11/05/2024 11:49 AM EDT [facility] Blood Venous blood specimen / Unknown Venipuncture / Unknown 11/05/2024 11:01 AM EDT 11/05/2024 11:21 AM EDT us Elsa Razo ENGINE LATHE SET UP OPERATOR LAB BLOOD ORDERABLES Fin al Result Performing Organization Address [facility] Co de Phone Number [facility] [address] [place] [address] * ECG Adult (Now - Performed in your clinic) (11/05/2024 10:10 AM EDT) Only the most recent of2 resultswithin the time period is included. EKG DIAGNOSIS CLASS Normal MUSE ECG Ventricular Rate 71 BPM MUSE ECG Atrial Rate 71 BPM MUSE ECG NE Interval 154 ms MUSE ECG QRSD Interval 80 ms MUSE ECG QT Interval 404 ms MUSE ECG QTC Interval 439 ms MUSE ECG P [place] 45 degrees MUSE ECG R [place] 15 degrees MUSE ECG T Wave [place] 42 degrees MUSE ECG Diagnosis Normal sinus rhythm MUSE ECG Diagnosis Normal ECG MUSE ECG Diagnosis MUSE ECG Diagnosis Confirmed by Orestes Stone ([id number]) on 11/05/2024 10:19:58 AM MUSE ECG 11/05/2024 10:1 0 AM EDT 11/05/2024 10:19 AM EDT us Elsa Razo ENGINE LATHE SET UP OPERATOR ECG ORDERABLES Final Re sult Performing Organization Address [facility] Co de Phone Number MUSE ECG * Urine Cross Panel (11/03/2024 4:05 PM EDT) Extra Reflex urine culture not indicated 11/04/2024 2:02 AM EDT [facility] Comment: Previously prelim verified as [...] PM EDT 11/03/2024 5:08 PM EDT us Tati Fam MD LAB URINE ORDERABLES Final R esult Performing Organization Address City/[facility] Co de Phone Number [facility] [address] [place] [address] * (ABNORMAL) Urinalysis with reflex microscopic (Culture NOT Included) (11/03/2024 4:05 PM EDT) Color, Urine Yellow LAB URINALYSIS - AUTOMATED METHOD 11/03/2024 4:23 PM EDT [facility] Clarity, Urine Clear LAB URINALYSIS - AUTOMATED METHOD 11/03/2024 4:23 PM EDT [facility] Spec Gould, Urine 1.018 1.005 - 1.030 LAB URINALYSIS - AUTOMATED METHOD 11/03/2024 4:23 PM EDT [facility] pH, Urine 6.5 5.0 - 8.0 LAB URINALYSIS - AUTOMATED METHOD 11/03/2024 4:23 PM EDT [facility] Protein, Urine 30(A) Negative mg/dL LAB URINALYSIS - AUTOMATED METHOD 11/03/2024 4:23 PM EDT [facility] Glucose, Urine Negative Negative mg/dL LAB URINALYSIS - AUTOMATED METHOD 11/03/2024 4:23 PM EDT [facility] Ketones, Urine Negative Negative mg/dL LAB URINALYSIS - AUTOMATED METHOD 11/03/2024 4:23 PM EDT [facility] Blood, Urine Negative Negative LAB URINALYSIS - AUTOMATED METHOD 11/03/2024 4:23 PM EDT [facility] Bilirubin, Urine Negative Negative LAB URINALYSIS - AUTOMATED METHOD 11/03/2024 4:23 PM EDT [facility] Urobilinogen, Urine 2.0(A) 0.2 to 1.0 mg/dL LAB URINALYSIS - AUTOMATED METHOD 11/03/2024 4:23 PM EDT [facility] Leukocytes, Urine Negative Negative LAB URINALYSIS - AUTOMATED METHOD 11/03/2024 4:23 PM EDT [facility] Nitrite, Urine Negative Negative LAB URINALYSIS - AUTOMATED METHOD 11/03/2024 4:23 PM EDT [facility] Urine Urine specimen obtained by clean catch procedure / Unknown Non-blood Collection / Unknown 11/03/2024 4:05 PM EDT 11/03/2024 4:17 PM EDT us Tati Fam MD LAB URINE ORDERABLES Final R esult [facility] [address] [place] [address] * CT Head wo IV Contrast (11/03/2024 3:35 PM EDT) Only the most recent of2 resultswithin the time period is included. Anatomical Region Laterality Modality Head Computed Tomogra [...] Beny Ricketts MD on 11/03/2024 4:09 PM us Tati Fam MD IMG CT PROCEDURES Final Resu lt * Blood Culture (Aerobic/Anaerobet Set) (11/03/2024 3:24 PM EDT) Only the most recent of2 resultswithin the time period is included. Culture No growth at day 5 11/08/2024 4:01 PM EDT [facility] Blood Structure of antecubital vein / Unknown Venipuncture / Unknown 11/03/2024 3:24 PM EDT 11/03/2024 3:47 PM EDT Narrative [facility] - 11/08/2024 4:01 PM EDT Low blood volume submitted, results may be compromised us Tati Fam MD LAB MICROBIOLOGY - GENERAL O RDERABLES Final Result [facility] [address] [place] [address] * XR Chest 1 View (11/03/2024 3:00 [...] Hernandez Cotter MD on 11/03/2024 4:27 PM Tati Fam MD IMG XR PROCEDURES Final Resu lt * Nasopharyngeal Respiratory Panel (11/03/2024 2:59 PM EDT) Nasopharyngeal Respiratory PCR Interpretation Not Detected for all analytes Not Detected for all analytes 11/03/2024 5:17 PM EDT [facility] Swab Nasopharyngeal structure / Unknown Non-blood Collection / Unknown 11/03/2024 2:59 PM EDT 11/03/2024 3:17 PM EDT Narrative [facility] - 11/03/2024 5:17 PM EDT [...] Respiratory PCR Panel is performed using the [employer]at[employer] ePlex instrument. This test is FDA approved for use with Nasopharyngeal swabs only. This test is used for clinical purposes. It should not be regarded as investigational or for research. The [facility] Clinical Microbiology Laboratory is certified under the Clinical Laboratory Improvement Amendments of 1988 (CLIA-88) as qualified to perform high complexity clinical laboratory testing. us Tait Fam MD LAB MICROBIOLOGY - GENERAL O RDERABLES Final Result [facility] [address] [place] [address] * Lactic acid, venous (11/03/2024 2:25 PM EDT) Lactate, Venous, Whole Blood 0.9 0.5 - 2.2 mmol/L LAB HEMATOLOGY METHOD 11/03/2024 2:38 PM EDT [facility] Blood Venous blood specimen / Unknown Venipuncture / Unknown 11/03/2024 2:25 PM EDT 11/03/2024 2:36 PM EDT us Tati Fam MD LAB BLOOD ORDERABLES Final R esult [facility] [address] [place] [address] * (ABNORMAL) BASIC METABOLIC PANEL (10/22/2024 3:50 PM EDT) Only the most recent of2 resultswithin the time period is included. Glucose, Plasma 95 74 - 99 mg/dL 10/22/2024 4:38 PM EDT [facility] BUN, Plasma 13 8 - 23 mg/dL 10/22/2024 4:38 PM EDT [facility] Creatinine, Plasma 1.10 0.70 - 1.20 mg/dL 10/22/2024 4:38 PM EDT [facility] BUN/Creatinine Ratio 12 10/22/2024 4:38 PM EDT [facility] Sodium, Plasma 138 136 - 145 mmol/L 10/22/2024 4:38 PM EDT [facility] Potassium, Plasma 4.4 3.6 - 4.9 mmol/L 10/22/2024 4:38 PM EDT [facility] Chloride, Plasma 106 97 - 107 mmol/L 10/22/2024 4:38 PM EDT [facility] CO2, Plasma 21(L) 22 - 29 mmol/L 10/22/2024 4:38 PM EDT [facility] Anion Gap 11 6 - 16 mmol/L 10/22/2024 4:38 PM EDT [facility] Total Calcium, Plasma 9.6 8.9 - 10.2 mg/dL 10/22/2024 4:38 PM EDT [facility] eGFRcr 72.7 mL/min/1.7 3m*2 10/22/2024 4:38 PM EDT [facility] Comment:Reported eGFRcr in m L/min/1.73m2 is based the CKD-EPI 2020 equation that does not use a race coefficient. Blood Venous blood specimen / Unknown Venipuncture / Unknown 10/22/2024 3:50 PM EDT 10/22/2024 4:04 PM EDT Virgen Vargas MD LAB BLOOD ORDERABLES Final Re sult Performing Organization Address [facility] Co de Phone Number [facility] [address] [place] [address] * Thyroid Stimulating Hormone, Plasma (10/20/2024 2:48 PM EDT) Thyroid Stimulating Hormone, Plasma 1.02 0.40 - 4.20 uIU/mL 10/20/2024 10:39 PM EDT [facility] Blood Venous blood specimen / Unknown Venipuncture / Unknown 10/20/2024 2:48 PM EDT 10/20/2024 3:05 PM EDT Kayli CHIU LAB BLOOD ORDERABLES Fin al Result Performing Organization Address [facility] Co de Phone Number [facility] [address] [place] [address] * Bone marrow exam consult (10/15/2024 1:27 PM EDT) Case Report Bone Marrow Case: [id number] Authorizing Provider: Virgen Vargas MD Collected: 10/15/20241326 Ordering Location: [facility] Lab Received: 10/15/2024 1327 Pathologist: Martha Lopez MD Specimen: Bone Marrow Aspirate, [id number] 10/16/2024 2:02 PM EDT [facility] Final Diagnosis A. 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 10/16/2024 2:02 PM EDT [facility] at 1402 EDT Comment Findings are those of MDS with increased blasts type 2 (MDS-IB-2) in the WHO 5th edition and MDS/AML in the International Consensus Classification. 10/16/2024 2:02 PM EDT [facility] Clinical Information R79.9 - Abnormal finding of blood chemistry, unspecified [ICD-10-CM] 10/16/2024 2:02 PM EDT [facility] CBC and Differential PERIPHERAL BLOOD: 10/13/2024: WBC Count 2.84 (Ref range: 3.70 - 10.30 10*3/uL); HGB 9.6 (Ref range: 13.7 - 17.5 g/dL); HCT 26.9 (Ref range: 40.0 - 51.0 %); Platelet Count 17 (Ref range: 155 - 369 10*3/uL); MCV 101 (Ref range: 79 - 98 fL) DIFFERENTIAL:10/13: Neutrophils % 49; Lymphocytes % 42; Monocytes % 9; Basophils % 0; Eosinophils % 0; Immature Granulocytes % 0 10/16/2024 2:02 PM EDT [facility] Bone Marrow Differential BONE MARROW DIFFERENTIAL: 200 cells Normal Patient Neutrophils 15-50 22 Metamyelocytes 4-19 3 Myelocytes 1-18 11 Promyelocytes 1-8 1 Blasts 0-2 13 Monocytes 0-5 4 Erythroid 16-38 41 Lymphocytes 3-24 4 Eosinophils 0-6 1 Basophils 0-2 0 Plasma cells 0-4 0 Other 10/16/2024 2:02 PM EDT [facility] Bone Marrow Aspirate and Biopsy The bone marrow cellularity is 40% with trilineage hematopoiesis. Megakaryocytes are present in adequate to slightly decreased numbers with occasional hypolobation and rare discrete separation of nuclear lobes. The myeloid-erythroid ratio is 1.2 (normal 1.5-4.0). Erythroid maturation is progressive with mild nuclear to cytoplasmic dyssynchrony. Granulocytic maturation is progressive with frequent hypogranular forms and occasional abnormal nuclear lobation. Blasts are 13% of the aspirate differential and are medium to large with round to ovoid nuclei, open chromatin and scant to moderate basophilic cytoplasm. Betsy rods are not observed. Iron stores are increased. No ring sideroblasts are observed. No metastatic tumor is identified. No lymphoma is identified. No granulomas are identified. Bone trabeculae are unremarkable. 10/16/2024 2:02 PM EDT [facility] Flow Cytometry Interpretation Outside flow cytometry showed 17% myeloblasts expressing CD34, CD117, partial CD 38, partial CD7, HLA-DR, CD13 and variable CD33. 10/16/2024 2:02 PM EDT [facility] CYTOGENETICS/MOL ECULAR INTERPRETATION Cytogenetic analysis showed normal male karyotype. No FLT3 duplication or mutation was identified, and no NPM1 mutation was identified. 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 10/16/2024 2:02 PM EDT [facility] Gross Description A. [id number] Received along with a corresponding pathology report from Pathology & Cytology Laboratory are 12 slides labeled outside case: [id number] collected on 09/19/2024. 10/16/2024 2:02 PM EDT [facility] Bone Marrow Specimen from bone marrow obtained by aspiration / Unknown 10/15/2024 1:27 PM EDT 10/15/2024 1:27 PM EDT Virgen Vargas MD LAB PATHOLOGY ORDERABLES Terri l Result Performing Organization Address City/[facility]/ZIP Co de Phone Number [facility] [address] [place] [address] * HLA NGS High Resolution Typing BMT Patient (10/02/2024 2:05 PM EDT) Blood Venous blood specimen / Unknown Venipuncture / Unknown 10/02/2024 2:05 PM EDT 10/02/2024 2:34 PM EDT Virgen Vargas MD LAB BLOOD ORDERABLES Final Re sult Performing Organization Address City/[facility]/ZIP Co de Phone Number [facility] [address] [place] [address], [place] * DNA Isolation and Hold (HLA) (10/02/2024 2:05 PM EDT) Only the most recent of2 resultswithin the time period is included. Blood Venous blood specimen / Unknown Venipuncture / Unknown 10/02/2024 2:05 PM EDT 10/02/2024 2:34 PM EDT us Virgen Vargas MD LAB MOLECULAR DIAGNOSTICS ORD ERABLES Final Result [facility] [address] [place] [address], * NM MYOCARDIAL SPECT REGADENOSON STRESS (MULTI STUDY) (10/02/2024 12:59 PM EDT) Target HR 128 bpm MUSE MPHR 151 bpm MUSE Resting HR 69 bpm MUSE Baseline Systolic BP 114 MUSE Baseline Diastolic BP 57 MUSE Pharma PK HR 88 bpm MUSE Pharmacologic Peak BP Systolic 96 mmHg MUSE Pharmacologic Peak BP Diastolic 64 mmHg MUSE Anatomical Region Laterality Modality Nuclear Medicine Narrative 10/02/2024 3:58 PM EDT Combined ECG/SPECT: This is an abnormal nuclear stress test due to a reversible perfusion defect involving the distal left anterior descending artery territory. The defect is small, involving less than 5% of the overall LV myocardium. Stress ECG: No ischemic ST segment changes occurred with stress. Perfusion: SPECT images demonstrate abnormal myocardial perfusion. There is a small, moderate perfusion defect located in the distal inferior and apical myocardium. Function: Normal left ventricular cavity size. Gated SPECT images demonstrate normal systolic function. Regional wall motion is normal. LV wall thickening appears concordantly normal. The calculated post-stress LVEF is 69%. There is a previous examination/report available for comparison or correlation, myocardial perfusion SPECT from 05/17/2023. There is a significant difference. There is now a reversible apical defect. Technical Details A one-day protocol was followed. 6.9 mCi of Tc-99m sestamibi were injected intravenously at rest. After a waiting period of 40-60 minutes, SPECT imaging of the heart was performed in the sitting upright position with three-dimensional tomographic reconstructions. 0.4 mg of regadenoson was infused over 10-12 seconds followed by 19.8 mCi of Tc-99m sestamibi injected intravenously. After a waiting period of 40-60 minutes, post-stress SPECT imaging of the heart was performed in the sitting upright and supine positions with three-dimensional tomographic reconstructions. Gated SPECT data were obtained to calculate left ventricular volumes and ejection fraction post-stress. Motion correction was not applied to the rest and/or post-stress acquisitions. 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 The pharmacologic test was performed using regadenoson. The patient started with a baseline heart rate of 69bpm, and increased to 88bpm with stress pharmacologic agent. The patient's baseline blood pressure was 114/57, and changed to 96/64 with stress medication. The patient's BP decreased during the pharmacologic stress. The patient experienced no chest pain. The patient experienced symptoms of shortness of breath during the stress test. The patient reached the end of the planned protocol. Stress ECG Baseline ECG: The baseline ECG shows normal sinus rhythm and normal axis. Baseline ECG shows no ST segment deviation. Stress and Recovery ECG: No ischemic ST segment changes occurred. There were no arrhythmias during stress. There were no arrhythmias during recovery. ECG Conclusion: No ischemic ST segment changes occurred with stress. The stress test was performed under direct supervision of the reading commercial drone pilot. Study Impression There is no significant patient motion noted. The SPECT images demonstrate a normal left ventricular cavity size with an estimated left ventricular end-diastolic volume of 98 mL (normal: <149 mL for males, < 102 mL for females, small: <45 mL). There is no stress-induced transient ischemic dilation (TID) of the left ventricular cavity. SPECT images demonstrate abnormal myocardial perfusion. There is a small, moderate perfusion defect located in the distal inferior and apical myocardium. The perfusion defect is reversible. The perfusion finding may be explained by true defect in the left anterior descending coronary arterial distribution. There is regular cardiac rhythm with optimal gating. The gated SPECT images demonstrate normal systolic function. Regional wall motion is normal. LV wall thickening appears concordantly normal. The calculated post-stress LVEF is 69%. Nuclear Conclusion Combined ECG/SPECT: This is an abnormal nuclear stress test. There is a previous examination/report available for comparison or correlation, myocardial perfusion SPECT from 05/17/2023. There is a significant difference. There is now a reversible apical defect. Louise Jain APRN CV STRESS PROCEDURES Final Re sult * Hepatitis B Surface Antibody, Quantitative (09/29/2024 12:51 PM EDT) Pathologist [facility] Hepatitis B Surface Antibody, Quantitative <8.00 NonReactiv e: <8, Grayzone: 8 - <12, Reactive: >= 12 mIU/mL 09/29/2024 3:35 PM EDT [facility] Comment: Nonreactive. Individual is considered not immune to HBV infection. Blood Venous blood specimen / Unknown Venipuncture / Unknown 09/29/2024 12:51 PM EDT 09/29/2024 1:21 PM EDT Result [facility] Virgen Vargas MD LAB BLOOD ORDERABLES Final Re sult Performing Organization Address [facility] Co de Phone Number [facility] [address] [place] [address] * HIV 1 & 2 Antibody/Antigen Screen (09/29/2024 12:51 PM EDT) Pathologist [facility] HIV 1 & 2 Antibody/Antigen Screen Non Reactive Non Reactive 09/29/2024 2:07 PM EDT [facility] Comment:Screening for HIV 1 & 2 antibodies, and P24 antigen is NONREACTIVE. No confirmatory testing is required. Blood Venous blood specimen / Unknown Venipuncture / Unknown 09/29/2024 12:51 PM EDT 09/29/2024 1:21 PM EDT Result [facility] Virgen Vargas MD LAB BLOOD ORDERABLES Final Re sult Performing Organization Address City/[facility]/ZIP Co de Phone Number [facility] [address] [place] [address] * HLA Low Resolution Typing, Patient (09/29/2024 12:51 PM EDT) Blood Venous blood specimen / Unknown Venipuncture / Unknown 09/29/2024 12:51 PM EDT 09/29/2024 1:19 PM EDT Virgen Vargas MD LAB BLOOD ORDERABLES Final Re sult Performing Organization Address [facility]/ZIP Co de Phone Number [facility] [address] [place] [address] * Hepatitis C Antibody w/Reflex to HCV Quant PCR (09/29/2024 12:51 PM EDT) Hepatitis C Antibody Negative Negative 09/29/2024 2:06 PM EDT [facility] Blood Venous blood specimen / Unknown Venipuncture / Unknown 09/29/2024 12:51 PM EDT 09/29/2024 1:22 PM EDT Virgen Vargas MD LAB BLOOD ORDERABLES Final Re sult Performing Organization Address [facility]/ZIP Co de Phone Number [facility] [address] [place] [address] * Hepatitis B Core Total Antibody IgG,IgM (09/29/2024 12:51 PM EDT) Hepatitis B Core Total Antibody IgG,IgM Negative Negative 09/29/2024 3:35 PM EDT [facility] Blood Venous blood specimen / Unknown Venipuncture / Unknown 09/29/2024 12:51 PM EDT 09/29/2024 1:21 PM EDT Virgen Vargas MD LAB BLOOD ORDERABLES Final Re sult Performing Organization Address City/[facility]/ZIP Co de Phone Number [facility] [address] [place] [address] * ABO/Rh (09/29/2024 12:51 PM EDT) ABO/Rh O Negative 09/29/2024 12:51 PM EDT [facility] Blood Venous blood specimen / Unknown Venipuncture / Unknown 09/29/2024 12:51 PM EDT 09/29/2024 1:10 PM EDT Virgen Vargas MD LAB BLOOD BANK TEST ORDERABLE S Final Result Performing Organization Address City/[facility]/ZIP Co de Phone Number BLOOD BANK [address] * Hepatitis B Surface Antigen (09/29/2024 12:51 PM EDT) Hepatitis B Surf Antigen Negative Negative 09/29/2024 3:35 PM EDT [facility] Blood Venous blood specimen / Unknown Venipuncture / Unknown 09/29/2024 12:51 PM EDT 09/29/2024 1:21 PM EDT Virgen Vargas MD LAB BLOOD ORDERABLES Final Re sult Performing Organization Address [facility]/ZIP Co de Phone Number [facility] [address] [place] [address] * APTT (09/29/2024 12:51 PM EDT) [facility] aPTT 29 25 - 35 sec LAB COAGULATION METHOD 09/29/2024 1:44 PM EDT [facility] Blood Venous blood specimen / Unknown Venipuncture / Unknown 09/29/2024 12:51 PM EDT 09/29/2024 1:22 PM EDT Virgen Vargas MD LAB BLOOD ORDERABLES Final Re sult Performing Organization Address City/[facility]/ZIP Co de Phone Number [facility] [address] [place] [address] * Haptoglobin, Serum (09/29/2024 12:51 PM EDT) Pathologist [facility] Haptoglobin, Serum 46 40 - 219 mg/dL 09/29/2024 2:01 PM EDT [facility] Blood Venous blood specimen / Unknown Venipuncture / Unknown 09/29/2024 12:51 PM EDT 09/29/2024 1:22 PM EDT Virgen Vargas MD LAB BLOOD ORDERABLES Final Re sult [facility] [address] [place] [address] from Last 3 Months Insurance [employer] Care Teams Can Cleaner Relationship Specialty Start Date End Date Zhao Harris MD [address] [place] [address] PCP - General 12/03/20
--- OUTSIDE RECORDS SUMMARY | 2024-12-30 08:35 | XMS_ITS | Encounter Summary ---
Author Organization [facility] Address [address] [place] [address] Care Team Providers Care Diesel Trailer Mechanic Name Role Phone Zhao Harris MD Primary Care Provider [phone] Encounter Details Date Type Department Care Team ([facility] st Contact Info) Description 11/19/2024 Orders Only PAV CC Hematology/BMT and Cellular Therapy Program [address] [place] [address] [place] [address] Adam Conway RN [facility] HEMATOLOGY PROGRAM CLINIC Myelodysplasia (myelodysplastic syndrome) (CMS/HCC) [...] drink first t manav in the morning (EYE-AIRCONDITIONING DRAFTING OFFICER) to steady your nerves or [...] Upcoming Encounters Date Type Department Care Team ([facility] st Contact Info) Description 01/06/2025 8:30 AM EDT Clinical Support [facility] Hematology/BMT and Cellular Therapy Program [address] [place] [phone] 01/06/2025 9:00 AM EDT Procedure Visit [facility] Hematology/BMT and Cellular Therapy Program [address] [place] [phone] Kierra Novak, TELEPHONE INTERVIEWER 800 [facility] [address] [place] [phone] 01/13/2025 9:30 AM EDT Clinical Support [facility] Hematology/BMT and Cellular Therapy Program [address] [place] [phone] 01/13/2025 10:00 AM EDT Office Visit [facility] Hematology/BMT and Cellular Therapy Program [address] [phone] Isaura Wynn, TELEPHONE INTERVIEWER 800 [facility] [address] [place] [phone] 01/13/2025 11:30 AM EDT Appointment [facility] Infusion [address] [place] [phone] 01/14/2025 2:00 PM EDT Appointment [facility] [address] [place] [phone] 01/15/2025 2:00 PM EDT Appointment [facility] [address] [place] [address] 01/16/2025 2:00 PM EDT Appointment [facility] [address] [place] [address] 01/17/2025 2:00 PM EDT Appointment [facility] [address] [place] [address] 01/18/2025 2:00 PM EDT Appointment [facility] [address] [place] [address] 01/19/2025 2:00 PM EDT Appointment [facility] [address] [place] [address] 03/10/2025 11:20 AM EDT Office Visit Pav CC Head, Neck & Respiratory 800 [facility], 2nd [place] [address] Elsa Razo, TELEPHONE INTERVIEWER [address] [place] [address] Scheduled Orders Name Type Priority Associated Diagnoses Orde r Schedule Comprehensive Metabolic Panel, Plasma Lab Routine Myelodysplasia (myelodysplastic syndrome) (CMS/HCC) 3x week & PRN for 999 Occurrences starting 11/19/2024 until 05/21/2026, 3 completed CBC and Differential Lab Routine Myelodysplasia (myelodysplastic syndrome) (CMS/HCC) 3x week & PRN for 999 Occurrences starting 11/19/2024 until 05/21/2026, 1 completed documented as of this encounter Results * (ABNORMAL) Comprehensive Metabolic Panel, Plasma (12/18/2024 9:14 AM EDT) Pathologist [facility] Glucose, Plasma 108(H) 74 - 99 mg/dL 12/18/2024 9:51 AM EDT [facility] BUN, Plasma 10 8 - 23 mg/dL 12/18/2024 9:51 AM EDT [facility] Creatinine, Plasma 0.80 0.70 - 1.20 mg/dL 12/18/2024 9:51 AM EDT [facility] BUN/Creatinine Ratio 13 12/18/2024 9:51 AM EDT [facility] Sodium, Plasma 139 136 - 145 mmol/L 12/18/2024 9:51 AM EDT [facility] Potassium, Plasma 4.4 3.6 - 4.9 mmol/L 12/18/2024 9:51 AM EDT [facility] Chloride, Plasma 108(H) 97 - 107 mmol/L 12/18/2024 9:51 AM EDT [facility] CO2, Plasma 22 22 - 29 mmol/L 12/18/2024 9:51 AM EDT [facility] Anion Gap 9 6 - 16 mmol/L 12/18/2024 9:51 AM EDT [facility] Total Calcium, Plasma 8.8(L) 8.9 - 10.2 mg/dL 12/18/2024 9:51 AM EDT [facility] Total Protein 6.8 6.3 - 7.9 g/dL 12/18/2024 9:51 AM EDT [facility] Albumin, Plasma 3.9 3.5 - 5.2 g/dL 12/18/2024 9:51 AM EDT [facility] AST, Plasma 16 10 - 50 U/L 12/18/2024 9:51 AM EDT [facility] ALT, Plasma 16 10 - 50 U/L 12/18/2024 9:51 AM EDT [facility] Alkaline Phosphatase, Plasma 83 40 - 115 U/L 12/18/2024 9:51 AM EDT [facility] Total Bilirubin, Plasma 0.6 0.2 - 1.1 mg/dL 12/18/2024 9:51 AM EDT [facility] eGFRcr 95.8 mL/min/1.7 3m*2 12/18/2024 9:51 AM EDT [facility] Comment:Reported eGFRcr in m L/min/1.73m2 is based the CKD-EPI 2020 equation that does not use a race coefficient. Blood Blood sample taken from central line / Unknown Venipuncture / Unknown 12/18/2024 9:14 AM EDT 12/18/2024 9:20 AM EDT Virgen Vargas MD LAB BLOOD ORDERABLES Final Re sult [facility] [address] [place] [address] * (ABNORMAL) CBC and Differential (11/24/2024 2:07 PM EDT) WBC Count 0.76(LL) 3.70 - 10.30 10*3/uL LAB HEMATOLOGY METHOD 11/24/2024 2:44 PM EDT LAB RBC Count 2.37(L) 4.60 - 6.10 10*6/uL LAB HEMATOLOGY METHOD 11/24/2024 2:44 PM EDT LAB HGB 8.0(L) 13.7 - 17.5 g/dL LAB HEMATOLOGY METHOD 11/24/2024 2:44 PM EDT LAB HCT 22.3(L) 40.0 - 51.0 % LAB HEMATOLOGY METHOD 11/24/2024 2:44 PM EDT LAB Platelet Count 12(LL) 155 - 369 10*3/uL LAB HEMATOLOGY METHOD 11/24/2024 2:44 PM EDT LAB MCV 94 79 - 98 fL LAB HEMATOLOGY METHOD 11/24/2024 2:44 PM EDT LAB MCH 33.8(H) 26.0 - 32.0 pg LAB HEMATOLOGY METHOD 11/24/2024 2:44 PM EDT LAB MCHC 35.9(H) 30.7 - 35.5 g/dL LAB HEMATOLOGY METHOD 11/24/2024 2:44 PM EDT LAB RDW 18.8(H) 11.5 - 14.5 % LAB HEMATOLOGY METHOD 11/24/2024 2:44 PM EDT LAB MPV LAB HEMATOLOGY METHOD 11/24/2024 2:44 PM EDT LAB Comment:Not Measured nRBC 0.0 <=0.0 per 100 WBCs LAB HEMATOLOGY METHOD 11/24/2024 2:44 PM EDT LAB Differential Type Automated LAB HEMATOLOGY METHOD 11/24/2024 2:44 PM EDT LAB Neutrophils % 16 % LAB HEMATOLOGY METHOD 11/24/2024 2:44 PM EDT LAB Lymphocytes % 79 % LAB HEMATOLOGY METHOD 11/24/2024 2:44 PM EDT LAB Monocytes % 4 % LAB HEMATOLOGY METHOD 11/24/2024 2:44 PM EDT LAB Eosinophils % 1 % LAB HEMATOLOGY METHOD 11/24/2024 2:44 PM EDT [facility] Basophils % 0 % LAB HEMATOLOGY METHOD 11/24/2024 2:44 PM EDT LAB Immature Granulocytes % 0 % LAB HEMATOLOGY METHOD 11/24/2024 2:44 PM EDT LAB Neutrophils Absolute 0.12(LL) 1.60 - 6.10 10*3/uL LAB HEMATOLOGY METHOD 11/24/2024 2:44 PM EDT LAB Lymphocytes Absolute 0.60(L) 1.20 - 3.90 10*3/uL LAB HEMATOLOGY METHOD 11/24/2024 2:44 PM EDT LAB Monocytes Absolute 0.03(L) 0.30 - 0.90 10*3/uL LAB HEMATOLOGY METHOD 11/24/2024 2:44 PM EDT LAB Eosinophils Absolute 0.01 0.00 - 0.50 10*3/uL LAB HEMATOLOGY METHOD 11/24/2024 2:44 PM EDT LAB Basophils Absolute 0.00 0.00 - 0.10 10*3/uL LAB HEMATOLOGY METHOD 11/24/2024 2:44 PM EDT LAB Immature Granulocytes Absolute 0.00 0.00 - 0.06 10*3/uL LAB HEMATOLOGY METHOD 11/24/2024 2:44 PM EDT LAB Blood Venous blood specimen / Unknown Venipuncture / Unknown 11/24/2024 2:07 PM EDT 11/24/2024 2:13 PM EDT Narrative [facility] - 11/24/2024 2:44 PM EDT Therapeutic decision making should be based on absolute values, rather than percentages. us Virgen Vargas MD LAB BLOOD ORDERABLES Final Re sult [facility] [address] [place] [address] * Comprehensive Metabolic Panel, Plasma (11/24/2024 2:07 PM EDT) [facility] Glucose, Plasma 97 74 - 99 mg/dL 11/24/2024 3:44 PM EDT [facility] BUN, Plasma 13 8 - 23 mg/dL 11/24/2024 3:44 PM EDT [facility] Creatinine, Plasma 0.97 0.70 - 1.20 mg/dL 11/24/2024 3:44 PM EDT [facility] BUN/Creatinine Ratio 13 11/24/2024 3:44 PM EDT [facility] Sodium, Plasma 138 136 - 145 mmol/L 11/24/2024 3:44 PM EDT [facility] Potassium, Plasma 3.7 3.6 - 4.9 mmol/L 11/24/2024 3:44 PM EDT [facility] Chloride, Plasma 107 97 - 107 mmol/L 11/24/2024 3:44 PM EDT [facility] CO2, Plasma 22 22 - 29 mmol/L 11/24/2024 3:44 PM EDT [facility] Anion Gap 9 6 - 16 mmol/L 11/24/2024 3:44 PM EDT [facility] Total Calcium, Plasma 9.5 8.9 - 10.2 mg/dL 11/24/2024 3:44 PM EDT [facility] Total Protein 6.7 6.3 - 7.9 g/dL 11/24/2024 3:44 PM EDT [facility] Albumin, Plasma 3.8 3.5 - 5.2 g/dL 11/24/2024 3:44 PM EDT [facility] AST, Plasma 18 10 - 50 U/L 11/24/2024 3:44 PM EDT [facility] ALT, Plasma 20 10 - 50 U/L 11/24/2024 3:44 PM EDT [facility] Alkaline Phosphatase, Plasma 71 40 - 115 U/L 11/24/2024 3:44 PM EDT [facility] Total Bilirubin, Plasma 0.7 0.2 - 1.1 mg/dL 11/24/2024 3:44 PM EDT [facility] eGFRcr 84.5 mL/min/1.7 3m*2 11/24/2024 3:44 PM EDT [facility] Comment:Reported eGFRcr in m L/min/1.73m2 is based the CKD-EPI 2020 equation that does not use a race coefficient. Blood Venous blood specimen / Unknown Venipuncture / Unknown 11/24/2024 2:07 PM EDT 11/24/2024 2:44 PM EDT us Virgen Vargas MD LAB BLOOD ORDERABLES Final Re sult [facility] [address] [place] [address] * (ABNORMAL) Comprehensive Metabolic Panel, Plasma (11/20/2024 1:49 PM EDT) Pathologist [facility] Glucose, Plasma 100(H) 74 - 99 mg/dL 11/20/2024 2:45 PM EDT [facility] BUN, Plasma 11 8 - 23 mg/dL 11/20/2024 2:45 PM EDT [facility] Creatinine, Plasma 1.01 0.70 - 1.20 mg/dL 11/20/2024 2:45 PM EDT [facility] BUN/Creatinine Ratio 11 11/20/2024 2:45 PM EDT [facility] Sodium, Plasma 135(L) 136 - 145 mmol/L 11/20/2024 2:45 PM EDT [facility] Potassium, Plasma 4.1 3.6 - 4.9 mmol/L 11/20/2024 2:45 PM EDT [facility] Chloride, Plasma 106 97 - 107 mmol/L 11/20/2024 2:45 PM EDT [facility] CO2, Plasma 21(L) 22 - 29 mmol/L 11/20/2024 2:45 PM EDT [facility] Anion Gap 8 6 - 16 mmol/L 11/20/2024 2:45 PM EDT [facility] Total Calcium, Plasma 9.1 8.9 - 10.2 mg/dL 11/20/2024 2:45 PM EDT [facility] Total Protein 6.7 6.3 - 7.9 g/dL 11/20/2024 2:45 PM EDT [facility] Albumin, Plasma 3.9 3.5 - 5.2 g/dL 11/20/2024 2:45 PM EDT [facility] AST, Plasma 26 10 - 50 U/L 11/20/2024 2:45 PM EDT [facility] ALT, Plasma 43 10 - 50 U/L 11/20/2024 2:45 PM EDT [facility] Alkaline Phosphatase, Plasma 71 40 - 115 U/L 11/20/2024 2:45 PM EDT [facility] Total Bilirubin, Plasma 0.7 0.2 - 1.1 mg/dL 11/20/2024 2:45 PM EDT [facility] eGFRcr 80.5 mL/min/1.7 3m*2 11/20/2024 2:45 PM EDT [facility] Comment:Reported eGFRcr in m L/min/1.73m2 is based the CKD-EPI 2020 equation that does not use a race coefficient. Blood Venous blood specimen / Unknown Venipuncture / Unknown 11/20/2024 1:49 PM EDT 11/20/2024 2:13 PM EDT us Virgen Vargas MD LAB BLOOD ORDERABLES Final Re sult [facility] [address] [place] [address] documented in this encounter Visit Diagnoses Diagnosis [...] documented as of this encounter Care Teams Diesel Trailer Mechanic Relationship Specialty Start Date End Date Zhao Harris MD [address] [place] [address] PCP - General 12/03/20 documented as of this encounter
--- OUTSIDE RECORDS SUMMARY | 2024-12-30 08:35 | XMS_ITS | Encounter Summary ---
Author Organization [facility] Address [address] [place] [address] Care Team Providers Care Bankruptcy Paralegal Name Role Phone Zhao Harris MD Primary Care Provider [phone] Encounter Details Date Type Department Care Team (Latest Contact Info) Description 11/20/2024 Travel Social History Tobacco Use Types Packs/Day [...] drink first t manav in the morning (EYE-RUBBER THREAD SPOOLER) to steady your nerves or to get [...] Upcoming Encounters Date Type Department Care Team ([facility] st Contact Info) Description 01/06/2025 8:30 AM EDT Clinical Support [facility] CC Hematology/BMT and Cellular Therapy Program [address] [place] [phone] 01/06/2025 9:00 AM EDT Procedure Visit [facility] CC Hematology/BMT and Cellular Therapy Program [address] [phone] Kierra Novak, RN PLASTICS 800 [facility] [address] [place] [phone] 01/13/2025 9:30 AM EDT Clinical Support [facility] CC Hematology/BMT and Cellular Therapy Program [address] [phone] 01/13/2025 10:00 AM EDT Office Visit [facility] CC Hematology/BMT and Cellular Therapy Program [address] [phone] Isaura Wynn, RN PLASTICS 800 [facility] [address] [place] [phone] 01/13/2025 11:30 AM EDT Appointment [facility] H Infusion [address] [place] [phone] 01/14/2025 2:00 PM EDT Appointment [facility]fusion [address] [place] [phone] 01/15/2025 2:00 PM EDT Appointment [facility]fusion [address] [place] [phone] 01/16/2025 2:00 PM EDT Appointment [facility]fusion [address] [place] [phone] 01/17/2025 2:00 PM EDT Appointment [facility] Infusion [address] [place] [address] 01/18/2025 2:00 PM EDT Appointment [facility]fusion [address] [place] [address] 01/19/2025 2:00 PM EDT Appointment [facility] Infusion [address] [place] [address] 03/10/2025 11:20 AM EDT Office Visit Pav CC Head, Neck & Respiratory 800 [facility], [address] [place] [address] Elsa Razo, RN PLASTICS [address] [place] [address] documented as of this encounter Visit Diagnoses [...] documented as of this encounter Care Teams Bankruptcy Paralegal Relationship Specialty Start Date End Date Zhao Harris MD [address] [place] [phone] PCP - General 12/03/20 documented as of this encounter
--- OUTSIDE RECORDS SUMMARY | 2024-12-30 08:35 | XMS_ITS | Encounter Summary ---
Author Organization [facility] Address [address] [place] [address] Care Team Providers Care Administration Clerk Name Role Phone Zhao Harris MD Primary Care Provider [phone] Encounter Details Date Type Department Care Team (Latest Contact Info) Description 11/17/2024 Travel Social History Tobacco Use Types Packs/Day [...] drink first t manav in the morning (EYE-PAYMASTER OF PURSES) to steady your nerves or to get [...] Hematology/BMT and Cellular Therapy Program [address] [place] [phone] 01/06/2025 9:00 AM EDT Procedure Visit [facility] CC Hematology/BMT and Cellular Therapy Program [address] [phone] Kierra Novak, CLOTH FOLDER MACHINE 800 [facility] [address] [place] [phone] 01/13/2025 9:30 AM EDT Clinical Support [facility] CC Hematology/BMT and Cellular Therapy Program [address] [phone] 01/13/2025 10:00 AM EDT Office Visit [facility] CC Hematology/BMT and Cellular Therapy Program [address] [phone] Isaura Wynn, CLOTH FOLDER MACHINE 800 [facility] [address] [place] [phone] 01/13/2025 11:30 AM EDT Appointment [facility] Infusion [address] [place] [phone] 01/14/2025 2:00 PM EDT Appointment [facility]fusion [address] [place] [phone] 01/15/2025 2:00 PM EDT Appointment [facility]fusion [address] [place] [phone] 01/16/2025 2:00 PM EDT Appointment [facility] Infusion [address] [place] [phone] 01/17/2025 2:00 PM EDT Appointment [facility]fusion [address] [place] [address] 01/18/2025 2:00 PM EDT Appointment [facility] Infusion [address] [place] [address] 01/19/2025 2:00 PM EDT Appointment [facility] Infusion [address] [place] [address] 03/10/2025 11:20 AM EDT Office Visit Pav CC Head, Neck & Respiratory 800 [facility], [address]nd [place] [address] Elsa Razo, CLOTH FOLDER MACHINE [address] [place] [address] documented as of this encounter Visit Diagnoses [...] documented as of this encounter Care Teams Administration Clerk Relationship Specialty Start Date End Date Zhao Harris MD [address] [place] [phone] PCP - General 12/03/20 documented as of this encounter
--- OUTSIDE RECORDS SUMMARY | 2024-12-30 08:35 | XMS_ITS | Encounter Summary ---
Author Organization [facility] Address [address] [place] [address] Care Team Providers Care Monogram Operator Name Role Phone Zhao Harris MD Primary Care Provider [phone] Encounter Details Date Type Department Care Team ([facility] st Contact Info) Description 11/18/2024 Telephone P[facility] CC Hematology/BMT and Cellular Therapy Program [address] [place] [address] [place] [address] Brittny Mahoney, RN [facility] Social History Tobacco Use Types Packs/Day [...] drink first t manav in the morning (EYE-INTEGRATION ANALYST) to steady your nerves or to [...] encounter Miscellaneous Notes * Progress Notes - Brittny Mahoney RN - 11/18/2024 1:04 PM EDT RN received critical lab result from Lab: ANC 0.09. Primary nurse will be notified. documented in this encounter Plan of Treatment Upcoming Encounters Date Type Department Care Team ([facility] Contact Info) Description 01/06/2025 8:30 AM EDT Clinical Support PAV Hematology/BMT and Cellular Therapy Program [address] [place] [phone] 01/06/2025 9:00 AM EDT Procedure Visit PAV Hematology/BMT and Cellular Therapy Program [address] [place] [phone] Kierra Novak, DIRECTOR MEDICAL SURGICAL 800 [facility] [address] [place] [phone] 01/13/2025 9:30 AM EDT Clinical Support PAV Hematology/BMT and Cellular Therapy Program [address] [place] [phone] 01/13/2025 10:00 AM EDT Office Visit PAV Hematology/BMT and Cellular Therapy Program [address] [place] [phone] Isaura Wynn, DIRECTOR MEDICAL SURGICAL 800 [facility] [address] [address] 01/13/2025 11:30 AM EDT Appointment [facility] H Infusion [address] [place] [address] 01/14/2025 2:00 PM EDT Appointment [facility] [address] [place] [address] 01/15/2025 2:00 PM EDT Appointment [facility]fusion [address] [place] [address] 01/16/2025 2:00 PM EDT Appointment [facility] [address] [place] [address] 01/17/2025 2:00 PM EDT Appointment [facility]fusion [address] [place] [address] 01/18/2025 2:00 PM EDT Appointment [facility] [address] [place] [address] 01/19/2025 2:00 PM EDT Appointment [facility] [address] [place] [address] 03/10/2025 11:20 AM EDT Office Visit Pav CC Head, Neck & Respiratory 800 [facility], 2nd [place] [address] Elsa Razo, DIRECTOR MEDICAL SURGICAL [address] [place] [address] documented as of this encounter Visit Diagnoses [...] documented as of this encounter Care Teams Monogram Operator Relationship Specialty Start Date End Date Zhao Harris MD [address] [facility] [address], [place] [phone] PCP - General 12/03/20 documented as of this encounter
--- OUTSIDE RECORDS SUMMARY | 2024-12-30 08:35 | XMS_ITS | Encounter Summary ---
Author Organization [facility] Address [address] [place] [address] Care Team Providers Care Supervisor Dry Cleaning Name Role Phone Zhao Harris MD Primary Care Provider [phone] Encounter Details Date Type Department Care Team (Latest Contact Info) Description 11/19/2024 Travel Social History Tobacco Use Types Packs/Day [...] t manav in the morning (EYE-CRITICAL CARE PARAMEDIC) to steady your nerves or to get [...] Upcoming Encounters Date Type Department Care Team ([facility] st Contact Info) Description 01/06/2025 8:30 AM EDT Clinical Support [facility] CC Hematology/BMT and Cellular Therapy Program [address] [place] [phone] 01/06/2025 9:00 AM EDT Procedure Visit [facility] CC Hematology/BMT and Cellular Therapy Program [address] [phone] Kierra Novak, PATTERN PAINTER 800 [facility] [address] [place] [phone] 01/13/2025 9:30 AM EDT Clinical Support [facility] CC Hematology/BMT and Cellular Therapy Program [address] [phone] 01/13/2025 10:00 AM EDT Office Visit [facility] CC Hematology/BMT and Cellular Therapy Program [address] [phone] Isaura Wynn, PATTERN PAINTER 800 [facility] [address] [place] [phone] 01/13/2025 11:30 AM EDT Appointment [facility] [address] [place] [phone] 01/14/2025 2:00 PM EDT Appointment [facility] [address] [place] [phone] 01/15/2025 2:00 PM EDT Appointment [facility] [address] [place] [phone] 01/16/2025 2:00 PM EDT Appointment [facility] [address] [place] [phone] 01/17/2025 2:00 PM EDT Appointment [facility] [address] [place] [address] 01/18/2025 2:00 PM EDT Appointment [facility] [address] [place] [address] 01/19/2025 2:00 PM EDT Appointment [facility] [address] [place] [address] 03/10/2025 11:20 AM EDT Office Visit Pav CC Head, Neck & Respiratory 800 [facility], [address]nd [place] [address] Elsa Razo, PATTERN PAINTER [address] [place] [address] documented as of this encounter Visit Diagnoses [...] as of this encounter Care Teams Supervisor Dry Cleaning Relationship Specialty Start Date End Date Zhao Harris MD [address] [place] [phone] PCP - General 12/03/20 documented as of this encounter
--- OUTSIDE RECORDS SUMMARY | 2024-12-30 08:35 | XMS_ITS | Encounter Summary ---
Author Organization [facility] Address [address] [place] [address] Care Team Providers Care Fish Bailer Name Role Phone Zhao Harris MD Primary Care Provider [phone] Encounter Details Date Type Department Care Team (Latest Contact Info) Description 11/18/2024 Travel Social History Tobacco Use Types Packs/Day [...] drink first t manav in the morning (EYE-FILTER TENDER) to steady your nerves or to [...] Hematology/BMT and Cellular Therapy Program [address] [place] [phone] 01/06/2025 9:00 AM EDT Procedure Visit [facility] Hematology/BMT and Cellular Therapy Program [address] [phone] Kierra Novak, SERVICE UNIT OPERATOR 800 [facility] [address] [place] [phone] 01/13/2025 9:30 AM EDT Clinical Support [facility] Hematology/BMT and Cellular Therapy Program [address] [address] 01/13/2025 10:00 AM EDT Office Visit [facility] Hematology/BMT and Cellular Therapy Program [address] [phone] Isaura Wynn, SERVICE UNIT OPERATOR 800 [facility] [address] [place] [phone] 01/13/2025 11:30 AM EDT Appointment [facility] Infusion 800 [place] [phone] 01/14/2025 2:00 PM EDT Appointment [facility] [address] [place] [phone] 01/15/2025 2:00 PM EDT Appointment [facility] [address] [place] [phone] 01/16/2025 2:00 PM EDT Appointment [facility] [address] [place] [phone] 01/17/2025 2:00 PM EDT Appointment [facility] [address] [place] [address] 01/18/2025 2:00 PM EDT Appointment [facility] [address] [place] [address] 01/19/2025 2:00 PM EDT Appointment [facility] [address] [place] [address] 03/10/2025 11:20 AM EDT Office Visit [facility] Head, Neck & Respiratory 800 [facility], 2nd [place] [address] Elsa Razo, SERVICE UNIT OPERATOR 800 [place] [address] documented as of this encounter Visit Diagnoses [...] documented as of this encounter Care Teams Fish Bailer Relationship Specialty Start Date End Date Zhao Harris MD [address] [place] [address] PCP - General 12/03/20 documented as of this encounter
--- OUTSIDE RECORDS SUMMARY | 2024-12-30 08:35 | XMS_ITS | Encounter Summary ---
Author Organization [facility] Address [address] [place] [address] Care Team Providers Care Hospital Aides And Assistants Teacher Name Role Phone Zhao Harris MD Primary Care Provider [phone] Encounter Details Date Type Department Care Team ([facility] st Contact Info) Description 11/18/2024 Telephone [facility] Hematology/BMT and Cellular Therapy Program [address] [place] [address] [place] [address] Gricel Gonzalez RN [facility] Social History Tobacco Use [...] drink first t manav in the morning (EYE-INTERNAL AFFAIRS INVESTIGATOR) to steady your nerves or to get [...] encounter Miscellaneous Notes * Clinician Note - Gricel Gonzalez RN - 11/18/2024 10:59 AM EDT Critical lab reported. WBC 0.78 and PLT 5. Primary RN notified. documented in this encounter Plan of Treatment Upcoming Encounters Date Type Department Care Team ([facility] Contact Info) Description 01/06/2025 8:30 AM EDT Clinical Support PAV Hematology/BMT and Cellular Therapy Program [address] [place] [phone] 01/06/2025 9:00 AM EDT Procedure Visit PAV Hematology/BMT and Cellular Therapy Program [address] [place] [phone] Kierra Novak, MOLD CUTTING MACHINE OPERATOR 800 [facility] [address] [place] [phone] 01/13/2025 9:30 AM EDT Clinical Support P[facility] Hematology/BMT and Cellular Therapy Program [address] [place] [phone] 01/13/2025 10:00 AM EDT Office Visit PAV Hematology/BMT and Cellular Therapy Program [address] [place] [phone] Isaura Wynn, MOLD CUTTING MACHINE OPERATOR 800 [facility] [address] [place] [phone] 01/13/2025 11:30 AM EDT Appointment [facility] Infusion 800 [place] [address] 01/14/2025 2:00 PM EDT Appointment [facility] 800 [place] [address] 01/15/2025 2:00 PM EDT Appointment [facility] [address] [place] [address] 01/16/2025 2:00 PM EDT Appointment [facility] [address] [place] [address] 01/17/2025 2:00 PM EDT Appointment [facility] 800 [place] [address] 01/18/2025 2:00 PM EDT Appointment [facility] 800 [place] [address] 01/19/2025 2:00 PM EDT Appointment [facility]fusion 800 [place] [address] 03/10/2025 11:20 AM EDT Office Visit Pav CC Head, Neck & Respiratory 800 [facility], 2nd [place] [address] Elsa Razo, MOLD CUTTING MACHINE OPERATOR 800 [place] [address] documented as of this encounter Visit Diagnoses [...] as of this encounter Care Teams Hospital Aides And Assistants Teacher Relationship Specialty Start Date End Date Zhao Harris MD 1210 [facility] [place], [place] [phone] PCP - General 12/03/20 documented as of this encounter
--- OUTSIDE RECORDS SUMMARY | 2024-12-30 08:36 | XMS_ITS | Encounter Summary ---
Author Organization [facility] Address [address] [place] [address] Care Team Providers Care Chemical Applicator Name Role Phone Zhao Harris MD Primary Care Provider [phone] Encounter Details Date Type Department Care Team (Latest Contact Info) Description 11/24/2024 Travel Social History Tobacco Use Types Packs/Day [...] drink first t manav in the morning (EYE-VACCINE CUSTOMER REPRESENTATIVE) to steady your nerves or to [...] Hematology/BMT and Cellular Therapy Program [address] [place] [phone] 01/06/2025 9:00 AM EDT Procedure Visit [facility] Hematology/BMT and Cellular Therapy Program [address] [phone] Kierra Novak, GRADUATE INTERNSHIP 800 [facility] [address] [place] [phone] 01/13/2025 9:30 AM EDT Clinical Support [facility] Hematology/BMT and Cellular Therapy Program [address] [phone] 01/13/2025 10:00 AM EDT Office Visit [facility] Hematology/BMT and Cellular Therapy Program [address] [phone] Isaura Wynn, GRADUATE INTERNSHIP 800 [facility] [address] [place] [phone] 01/13/2025 11:30 AM EDT Appointment [facility] Infusion 800 [place] [phone] 01/14/2025 2:00 PM EDT Appointment [facility] 800 [place] [phone] 01/15/2025 2:00 PM EDT Appointment [facility] [address] [place] [phone] 01/16/2025 2:00 PM EDT Appointment [facility] [address] [place] [phone] 01/17/2025 2:00 PM EDT Appointment [facility]fusion [address] [place] [address] 01/18/2025 2:00 PM EDT Appointment [facility] [address] [place] [address] 01/19/2025 2:00 PM EDT Appointment [facility] 800 [place] [address] 03/10/2025 11:20 AM EDT Office Visit Pav CC Head, Neck & Respiratory 800 [facility], 2nd [place] [address] Elsa Razo, GRADUATE INTERNSHIP 800 [place] [address] documented as of this encounter Visit Diagnoses [...] documented as of this encounter Care Teams Chemical Applicator Relationship Specialty Start Date End Date Zhao Harris MD [address] [place] [address] PCP - General 12/03/20 documented as of this encounter
--- OUTSIDE RECORDS SUMMARY | 2024-12-30 08:36 | XMS_ITS | Encounter Summary ---
Author Organization [facility] Address [address] [place] [address] Care Team Providers Care Environmental Services Associate Name Role Phone Zhao Harris MD Primary Care Provider [phone] Encounter Details Date Type Department Care Team (Latest Contact Info) Description 11/21/2024 Travel Social History Tobacco Use Types Packs/Day [...] drink first t manav in the morning (EYE-BUTTON BREAKER) to steady your nerves or to get [...] ([facility] st Contact Info) Description 01/06/2025 8:30 AM EDT Clinical Support [facility] Hematology/BMT and Cellular Therapy Program [address] [place] [phone] 01/06/2025 9:00 AM EDT Procedure Visit [facility] Hematology/BMT and Cellular Therapy Program [address] [phone] Kierra Novak, RAIL EXPRESS CLERK 800 [facility] [address] [place] [phone] 01/13/2025 9:30 AM EDT Clinical Support [facility] Hematology/BMT and Cellular Therapy Program [address] [address] 01/13/2025 10:00 AM EDT Office Visit [facility] Hematology/BMT and Cellular Therapy Program [address] [phone] Isaura Wynn, RAIL EXPRESS CLERK [address] [facility] [address] [place] [phone] 01/13/2025 11:30 AM EDT Appointment [facility] Infusion 800 [place] [phone] 01/14/2025 2:00 PM EDT Appointment [facility]fusion 800 [place] [phone] 01/15/2025 2:00 PM EDT Appointment [facility]fusion 800 [place] [phone] 01/16/2025 2:00 PM EDT Appointment [facility]fusion 800 [place] [phone] 01/17/2025 2:00 PM EDT Appointment [facility]fusion 800 [place] [address] 01/18/2025 2:00 PM EDT Appointment [facility]fusion 800 [place] [address] 01/19/2025 2:00 PM EDT Appointment [facility]fusion 800 [place] [address] 03/10/2025 11:20 AM EDT Office Visit Pav CC Head, Neck & Respiratory 800 [facility], 2nd [place] [address] Elsa Razo, RAIL EXPRESS CLERK 800 [place] [address] documented as of this encounter Visit Diagnoses [...] documented as of this encounter Care Teams Environmental Services Associate Relationship Specialty Start Date End Date Zhao Harris MD [address] [place] [address] PCP - General 12/03/20 documented as of this encounter
--- OUTSIDE RECORDS SUMMARY | 2024-12-30 08:36 | XMS_ITS | Encounter Summary ---
Author Organization [facility] Address [address] [place] [address] Care Team Providers Care Lubricating Machine Tender Name Role Phone Zhao Harris MD Primary Care Provider [phone] Encounter Details Date Type Department Care Team (Late st Contact Info) Description 11/18/2024 Telephone [facility] [address] [place] [address] Maia Velasquez, PharmD [facility] [place] [phone] Social History Tobacco Use Types Packs/Day Years [...] drink first t manav in the morning (EYE-HOGSHEAD MAT ASSEMBLER) to steady your nerves or to [...] encounter Miscellaneous Notes * Telephone Encounter - Maia Velasquez, PharmD - 11/18/2024 3:18 PM EDT Specialty Medication First Follow-Up: The patient was contacted approximately 1 month after initiation of therapy. Patient initiated the following medication/strength (Venclexta 70mg days 1-14 Q28 days) on the following date (10/20/24). Are there any identified problems with medication administration or dosing? No The patient is adherent to therapy. Patient reports any side effects? Yes vomiting x 1 when didn't take zofran New Labs since initiation? Yes Therapy is appropriate for continuation. This assessment was based on communication with patient. The patient's medication list has been reviewed with the patient, is accurate and is reflected in the patient's chart. Summary: C2 aza/cindy to start today 11/18. Venclexta will start on 11/19 due to inability for [facility] to get it to patient in time to start this evening. They will machine pecan picker at [facility] on 11/19. Tolerated C1 well, only had one vomiting episode when didn't take zofran. NO questions or concerns today. documented in this encounter Plan of Treatment Upcoming Encounters Date Type Department Care Team ([facility] st Contact Info) Description 01/06/2025 8:30 AM EDT Clinical Support [facility] Hematology/BMT and Cellular Therapy Program [address] [place] [address] 01/06/2025 9:00 AM EDT Procedure Visit [facility] CC Hematology/BMT and Cellular Therapy Program 750 [facility], [address] [place] [address] [place] [address] Kierra Novak, DIAPER FOLDER 800 [facility] [address] [place] [phone] 01/13/2025 9:30 AM EDT Clinical Support [facility] CC Hematology/BMT and Cellular Therapy Program [address] [phone] 01/13/2025 10:00 AM EDT Office Visit [facility] CC Hematology/BMT and Cellular Therapy Program 750 [facility], [address] [place] [phone] Isaura Wynn, DIAPER FOLDER 800 [facility] [address] [place] [phone] 01/13/2025 11:30 AM EDT Appointment [facility] Infusion 800 [place] [address] 01/14/2025 2:00 PM EDT Appointment [facility] Infusion 800 [place] [address] 01/15/2025 2:00 PM EDT Appointment [facility] Infusion 800 [place] [address] 01/16/2025 2:00 PM EDT Appointment [facility] Infusion 800 [place] [address] 01/17/2025 2:00 PM EDT Appointment [facility]fusion [address] [place] [address] 01/18/2025 2:00 PM EDT Appointment [facility] Infusion 800 [place] [address] 01/19/2025 2:00 PM EDT Appointment [facility]fusion 800 [place] [phone] 03/10/2025 11:20 AM EDT Office Visit Pav CC Head, Neck & Respiratory 800 [facility], 2nd [place] [phone] Elsa Razo, DIAPER FOLDER 800 [place] [address] documented as of this encounter [...] documented as of this encounter Care Teams Lubricating Machine Tender Relationship Specialty Start Date End Date Zhao Harris MD [address] [place] [address] PCP - General 12/03/20 documented as of this encounter
--- OUTSIDE RECORDS SUMMARY | 2024-12-30 08:37 | XMS_ITS | Encounter Summary ---
Author Organization [facility] Address [address] [place] [address] Care Team Providers Care Exercise Equipment Repair Technician Name Role Phone Zhao Harris MD Primary Care Provider [phone] Encounter Details Date Type Department Care Team (Latest Contact Info) Description 11/22/2024 Travel Social History Tobacco Use Types Packs/Day [...] drink first t manav in the morning (EYE-MECHANICAL REPAIR WORKER) to steady your nerves or to [...] Encounters Date Type Department Care Team ([facility] st Contact Info) Description 01/06/2025 8:30 AM EDT Clinical Support [facility] Hematology/BMT and Cellular Therapy Program [address] [place] [address] 01/06/2025 9:00 AM EDT Procedure Visit [facility] Hematology/BMT and Cellular Therapy Program [address] [phone] Kierra Novak, BUSINESS AND MARKETING TEACHER 800 [facility] [address] [place] [phone] 01/13/2025 9:30 AM EDT Clinical Support [facility] Hematology/BMT and Cellular Therapy Program [address] [address] 01/13/2025 10:00 AM EDT Office Visit [facility] Hematology/BMT and Cellular Therapy Program [address] [phone] Isaura Wynn, BUSINESS AND MARKETING TEACHER 800 [facility] [address] [place] [phone] 01/13/2025 11:30 AM EDT Appointment [facility] Infusion 800 [place] [phone] 01/14/2025 2:00 PM EDT Appointment [facility] Infusion 800 [place] [phone] 01/15/2025 2:00 PM EDT Appointment [facility] [address] [place] [phone] 01/16/2025 2:00 PM EDT Appointment [facility]fusion [address] [place] [phone] 01/17/2025 2:00 PM EDT Appointment [facility]fusion [address] [place] [address] 01/18/2025 2:00 PM EDT Appointment [facility]fusion [address] [place] [address] 01/19/2025 2:00 PM EDT Appointment [facility] Infusion 800 [place] [address] 03/10/2025 11:20 AM EDT Office Visit Pav CC Head, Neck & Respiratory 800 [facility], 2nd [place] [address] Elsa Razo, BUSINESS AND MARKETING TEACHER 800 [place] [address] documented as of this encounter Visit Diagnoses [...] documented as of this encounter Care Teams Exercise Equipment Repair Technician Relationship Specialty Start Date End Date Zhao Harris MD [address] [place] [address] PCP - General 12/03/20 documented as of this encounter
--- OUTSIDE RECORDS SUMMARY | 2024-12-30 08:37 | XMS_ITS | Encounter Summary ---
Author Organization [facility] Address [address] [place] [address] Care Team Providers Care Equipment Service Engineer Name Role Phone Zhao Harris MD Primary Care Provider [phone] Encounter Details Date Type Department Care Team ([facility] st Contact Info) Description 10/24/2024 Telephone [facility] Hematology/BMT and Cellular Therapy Program [address] [phone] Virgen Vargas MD 800 [facility] [address] [place] [address] Social History Tobacco Use Types Packs/Day Years Used Date Smoking Tobacco: Every Day Cigarettes 1.5 15 Started: 1994 Passive Smoke Exposure: Current Smokeless Tobacco: Never Alcohol Use Standard Drinks/Week Comments Yes 6 (1 standard drink = 0.6 oz pur e alcohol) PHQ-2 Answer Date Recorded Patient Health Questionnaire-2 Score 0 09/11/2024 PHQ-9 Answer Date Recorded Patient Health Questionnaire-9 Score 0 09/11/2024 Sex and Gender Information Value Date Recorded Sex Assigned at Male 05/18/2023 9:35 AM EDT Legal Sex Male 7:29 PM EDT Gender Identity Male 05/18/2023 9:35 AM EDT Sexual Orientation Straight 05/18/2023 9: 35 AM EDT documented as of this encounter Miscellaneous Notes * Telephone Encounter - Maia Kaplan RN - 10/30/2024 1:15 PM EDT RN returned call to patient and updated primary team. Requested records to be faxed from [facility]. * Telephone Encounter - Misty Patel - 10/30/2024 1:03 PM EDT CALLBACK NUMBER: [phone] Patient's spouse called to make clinical team aware that the patient does not have congestive heartfailure. Patient is being discharged today and will be seeing them on Sunday. * Telephone Encounter - Adam Conway RN - 10/30/2024 9:05 AM EDT RN spoke with pt's and she states the pt was admitted locally for heart failure and fluid around his heart, they have started lasix. Discussed with her that she should discuss with the MD there to initiate a transfer to if necessary. She verbalizes understanding. made aware. * Telephone Encounter - Misty Patel - 10/29/2024 4:28 PM EDT Patient's spouse calling to make clinical team aware the patient is being admitted to the hospital in [place] for heart failure Callback number:[phone] * Telephone Encounter - Maia Kaplan RN - 10/24/2024 1:57 PM EDT Rn returned call and answered all questions. * Telephone Encounter - Misty Patel - 10/24/2024 1:17 PM EDT Patient's spouse called to see if they needed to go to [place] for the next 2 weeks for blood draws Callback number:[phone] * Telephone Encounter - Maia Kaplan, RN - 10/24/2024 1:00 PM EDT RN returned call and answered all questions. * Telephone Encounter - Misty Patel - 10/24/2024 12:35 PM EDT Patient's spouse called in to speak to Adam. Callback number: [phone] documented in this encounter Plan of Treatment Upcoming Encounters Date Type Department Care Team ([facility] Contact Info) Description 01/06/2025 8:30 AM EDT Clinical Support [facility] Hematology/BMT and Cellular Therapy Program [address] [place] [phone] 01/06/2025 9:00 AM EDT Procedure Visit [facility] Hematology/BMT and Cellular Therapy Program [address] [phone] Kierra Novak, SENIOR PROGRAMMER 800 [facility] [address] [place] [phone] 01/13/2025 9:30 AM EDT Clinical Support [facility] Hematology/BMT and Cellular Therapy Program [address] [place] [phone] 01/13/2025 10:00 AM EDT Office Visit [facility] Hematology/BMT and Cellular Therapy Program [address] [place] [phone] Isaura Wynn, SENIOR PROGRAMMER 800 [facility] [address] [phone] 01/13/2025 11:30 AM EDT Appointment [facility] Infusion [address] [place] [address] 01/14/2025 2:00 PM EDT Appointment [facility]fusion [address] [place] [address] 01/15/2025 2:00 PM EDT Appointment [facility] [address] [place] [address] 01/16/2025 2:00 PM EDT Appointment [facility] [address] [place] [address] 01/17/2025 2:00 PM EDT Appointment [facility] [address] [place] [address] 01/18/2025 2:00 PM EDT Appointment [facility] [address] [place] [address] 01/19/2025 2:00 PM EDT Appointment [facility] [address] [place] [address] 03/10/2025 11:20 AM EDT Office Visit [facility] CC Head, Neck & Respiratory 800 [facility], 2nd [place] [address] Elsa Razo, SENIOR PROGRAMMER 800 [place] [address] documented as of this encounter Visit Diagnoses Not on filedocumented in this encounter Additional Health Concerns Assessment Noted Time PHQ-9 Depression Total Score: 0 09/11/19 9:15 AM EST A fall risk assessment has been complete d for the patient 10/24/2024 2:14 PM EDT A Body Mass Index follow-up plan has been documented for the patient 10/20/2024 4:38 PM EDT documented as of this encounter Care Teams Equipment Service Engineer Relationship Specialty Start Date End Date Zhao Harris MD 1210 [facility] [address], [place] [address] PCP - General 12/03/20 documented as of this encounter
--- OUTSIDE RECORDS SUMMARY | 2024-12-30 08:37 | XMS_ITS | Encounter Summary ---
Author Organization [facility] Address [address] [place] [address] Care Team Providers Care Law Clerk Name Role Phone Zhao Harris MD Primary Care Provider [phone] Encounter Details Date Type Department Care Team (Latest Contact Info) Description 11/23/2024 Travel Social History Tobacco Use Types Packs/Day [...] drink first t manav in the morning (EYE-ASE CERTIFIED TECHNICIAN) to steady your nerves or to [...] Hematology/BMT and Cellular Therapy Program [address] [place] [phone] 01/06/2025 9:00 AM EDT Procedure Visit [facility] Hematology/BMT and Cellular Therapy Program [address] [phone] Kierra Novak, FARM LOAN INSPECTOR 800 [facility] [address] [place] [phone] 01/13/2025 9:30 AM EDT Clinical Support [facility] Hematology/BMT and Cellular Therapy Program [address] [phone] 01/13/2025 10:00 AM EDT Office Visit [facility] Hematology/BMT and Cellular Therapy Program [address] [phone] Isaura Wynn, FARM LOAN INSPECTOR 800 [facility] [address] [place] [phone] 01/13/2025 11:30 AM EDT Appointment [facility] 800 [place] [phone] 01/14/2025 2:00 PM EDT Appointment [facility] 800 [place] [phone] 01/15/2025 2:00 PM EDT Appointment [facility] 800 [place] [phone] 01/16/2025 2:00 PM EDT Appointment [facility] 800 [place] [phone] 01/17/2025 2:00 PM EDT Appointment [facility] 800 [place] [address] 01/18/2025 2:00 PM EDT Appointment [facility] 800 [place] [address] 01/19/2025 2:00 PM EDT Appointment [facility] 800 [place] [address] 03/10/2025 11:20 AM EDT Office Visit Pav CC Head, Neck & Respiratory 800 [facility], 2nd [place] [address] Elsa Razo, FARM LOAN INSPECTOR 800 [place] [address] documented as of this encounter Visit Diagnoses [...] documented as of this encounter Care Teams Law Clerk Relationship Specialty Start Date End Date Zhao Harris MD [address] [place] [address] PCP - General 12/03/20 documented as of this encounter
--- OUTSIDE RECORDS SUMMARY | 2024-12-30 08:37 | XMS_ITS | Encounter Summary ---
Author Organization [facility] Address [address] [place] [address] Care Team Providers Care Rail Washer Name Role Phone Zhao Harris MD Primary Care Provider [phone] Reason for Visit * Reason Comments Med Refill Encounter Details Date Type Department Care Team ([facility] Contact Info) Description 01/18/2022 Refill [facility] [place] [facility] [address], [address] [place] [address] Regina Hill, PA [address] [place] [address] Hypertension, unspecified type Social History Tobacco Use Types Packs/Day Years Used Date Smoking Tobacco: Every Day Sex and Gender Information Value Date Recorded [...] Hematology/BMT and Cellular Therapy Program [address] [place] [phone] 01/06/2025 9:00 AM EDT Procedure Visit [facility] Hematology/BMT and Cellular Therapy Program [address] [place] [phone] Kierra Novak, RAILROAD OPERATOR 800 [facility] [address] [place] [phone] 01/13/2025 9:30 AM EDT Clinical Support [facility] Hematology/BMT and Cellular Therapy Program 750 [facility], [address] [place] [phone] 01/13/2025 10:00 AM EDT Office Visit [facility] Hematology/BMT and Cellular Therapy Program 750 [facility], [address] [place] [phone] Isaura Wynn, RAILROAD OPERATOR 800 [facility] [address] [place] [phone] 01/13/2025 11:30 AM EDT Appointment [facility] [address] [place] [address] 01/14/2025 2:00 PM EDT Appointment [facility] [address] [place] [address] 01/15/2025 2:00 PM EDT Appointment [facility] [address] [place] [address] 01/16/2025 2:00 PM EDT Appointment [facility] [address] [place] [address] 01/17/2025 2:00 PM EDT Appointment [facility] [address] [place] [address] 01/18/2025 2:00 PM EDT Appointment [facility] [address] [place] [address] 01/19/2025 2:00 PM EDT Appointment [facility] [address] [place] [address] 03/10/2025 11:20 AM EDT Office Visit [facility] Head, Neck & Respiratory 800 [facility], 2nd [place] [address] Elsa Razo, RAILROAD OPERATOR [address] [place] [phone] documented as of this encounter Visit Diagnoses Diagnosis Hypertension, unspecified type documented in this encounter Additional Health Concerns Infection Onset Date Last Indicated Resolved Time Respiratory Rule-Out 11/03/2024 11/03/2024 025 5:17 PM EDT documented as of this encounter Care Teams Rail Washer Relationship Specialty Start Date End Date Zhao Harris MD [address] [place] [address] PCP - General 12/03/20 documented as of this encounter
--- OUTSIDE RECORDS SUMMARY | 2024-12-30 08:37 | XMS_ITS | Encounter Summary ---
Author Organization [facility] Address [address] [place] [address] Care Team Providers Care Green Building Materials Distributor Name Role Phone Zhao Harris MD Primary Care Provider [phone] Encounter Details Date Type Department Care Team (Late Contact Info) Description 10/15/2024 Lab Requisition [facility] H Lab [address] [place] [address] Virgen Vargas MD 800 [facility] [address] [place] [phone] Abnormal finding of blood chemistry, unspecified Social History Tobacco Use Types Packs/Day Years [...] Hematology/BMT and Cellular Therapy Program [address] [place] [address] 01/06/2025 9:00 AM EDT Procedure Visit [facility] Hematology/BMT and Cellular Therapy Program [address] [place] [phone] Kierra Novak, CAR PORTER 800 [facility] [address] [place] [phone] 01/13/2025 9:30 AM EDT Clinical Support [facility] Hematology/BMT and Cellular Therapy Program [address] [address] 01/13/2025 10:00 AM EDT Office Visit [facility] Hematology/BMT and Cellular Therapy Program [address] [phone] Isaura Wynn, CAR PORTER 800 [facility] [address] [place] [phone] 01/13/2025 11:30 AM EDT Appointment [facility] Infusion [address] [place] [address] 01/14/2025 2:00 PM EDT Appointment [facility] [address] [place] [address] 01/15/2025 2:00 PM EDT Appointment [facility] [address] [place] [address] 01/16/2025 2:00 PM EDT Appointment [facility] [address] [place] [address] 01/17/2025 2:00 PM EDT Appointment [facility] [address] [place] [address] 01/18/2025 2:00 PM EDT Appointment [facility] [address] [place] [address] 01/19/2025 2:00 PM EDT Appointment [facility] [address] [place] [address] 03/10/2025 11:20 AM EDT Office Visit Pav CC Head, Neck & Respiratory 800 [facility], 2nd [place] [address] RazoElsa, CAR PORTER [address] [place] [phone] documented as of this encounter Procedures Procedure Name Priority Date/Time Associated Diagnosis Comments BONE MARROW EXAM CONSULT Routine 10/15/2024 1:27 PM EDT Abnormal finding of blood chemistry, unspecified documented in this encounter Results * Bone marrow exam consult (10/15/2024 1:27 PM EDT) Case Report Bone Marrow Case: [id number] Authorizing Provider: Virgen Vargas MD Collected: 10/15/2024 1327 Ordering Location: [facility] Lab Received: 10/15/2024 1327 Pathologist: Martha Lopez MD Specimen: Bone Marrow Aspirate, [id number] 10/16/2024 2:02 PM EDT [facility] Final Diagnosis A. 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 10/16/2024 2:02 PM EDT [facility] at 1402 EDT Comment Findings are those of MDS with increased blasts type 2 (MDS-IB-2) in the WHO 5th edition and MDS/AML in the International Consensus Classification. 10/16/2024 2:02 PM EDT [facility] Clinical Information R79.9 - Abnormal finding of blood chemistry, unspecified [ICD-10-CM] 10/16/2024 2:02 PM EDT [facility] CBC and [...] Granulocytes % 0 10/16/2024 2:02 PM EDT [facility] Bone Marrow Differential BONE MARROW DIFFERENTIAL: 200 cells Normal Patient Neutrophils 15-50 22 Metamyelocytes 4-19 3 Myelocytes 1-18 11 Promyelocytes 1-8 1 Blasts 0-2 13 Monocytes 0-5 4 Erythroid 16-38 41 Lymphocytes 3-24 4 Eosinophils 0-6 1 Basophils 0-2 0 Plasma cells 0-4 0 Other 10/16/2024 2:02 PM T [facility] Bone Marrow Aspirate and Biopsy [...] Bone trabeculae are unremarkable. 10/16/2024 2:02 PM T [facility] Flow Cytometry Interpretation Outside flow cytometry showed 17% myeloblasts expressing CD34, CD117, partial CD 38, partial CD7, HLA-DR, CD13 and variable CD33. 10/16/2024 2:02 PM T [facility] CYTOGENETICS/MOL ECULAR INTERPRETATION Cytogenetic analysis showed normal male karyotype. No FLT3 duplication or mutation was identified, and no NPM1 mutation was identified. 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 10/16/2024 2:02 PM T [facility] Gross Description A. [id number] Received along with a corresponding pathology report from [facility]ology [facility] Cytology Laboratory are 12 slides labeled outside case: [id number] collected on 09/19/2024. 10/16/2024 2:02 PM EDT [facility] Bone Marrow Specimen from bone marrow obtained by aspiration / Unknown 10/15/2024 1:27 PM EDT 10/15/2024 1:27 PM EDT us Virgen Vargas MD LAB PATHOLOGY ORDERABLES Terri lara Result [facility] [address] [place] [address] documented in this encounter Visit Diagnoses Diagnosis Abnormal finding of blood chemistry, unspecified documented in this encounter Additional Health Concerns Infection Onset Date Last Indicated Resolved Time Respiratory Rule-Out 11/03/2024 11/03/2024 025 5:17 PM EDT Assessment Noted Time PHQ-9 Depression Total Score: 0 09/11/19 25 9:15 AM EST A fall risk assessment has been complete d for the patient 10/13/2024 1:48 PM EDT A Body Mass Index follow-up plan has been documented for the patient 09/11/2024 10:56 AM EST documented as of this encounter Care Teams Green Building Materials Distributor Relationship Specialty Start Date End Date Zhao Harris MD [address] [place] [address] PCP - General 12/03/20 documented as of this encounter
--- OUTSIDE RECORDS SUMMARY | 2024-12-30 08:37 | XMS_ITS | Encounter Summary ---
Author Organization [facility] Address [address] [place] [address] Care Team Providers Care Ion Implant Machine Operator Name Role Phone Zhao Harris MD Primary Care Provider [phone] Encounter Details Date Type Department Care Team (Latest Contact Info) Description 11/03/2024 Travel Social History Tobacco Use Types Packs/Day [...] first t manav in the morning (EYE-SUPERVISOR PORCELAIN DEPARTMENT) to steady your nerves or to [...] Risk Indicated 11/03/2024 2:35 PM EDT Ira Diamond, RN * Question Answer Date of Assessment Author 1. Wish to be (Past 1 Month) No 2:35 PM EDT Ira Diamond, RN 2. Non-Specific Active Suici berry Thoughts (Past 1 Month) No 11/03/2024 2:35 PM EDT Ira Diamond, RN 6. Suicidal Behavior (Lifetime) No 2:35 PM EDT Ira Diamond, BRIAN documented as of this encounter Plan of Treatment Upcoming Encounters Date Type Department Care Team ([facility] Contact Info) Description 01/06/2025 8:30 AM EDT Clinical Support PAV Hematology/BMT and Cellular Therapy Program [address] [place] [phone] 01/06/2025 9:00 AM EDT Procedure Visit PAV Hematology/BMT and Cellular Therapy Program [address] [place] [phone] Kierra Novak, MIRROR SPECIALIST 800 [facility] [address] [place] [phone] 01/13/2025 9:30 AM EDT Clinical Support PAV Hematology/BMT and Cellular Therapy Program [address] [place] [phone] 01/13/2025 10:00 AM EDT Office Visit PAV Hematology/BMT and Cellular Therapy Program [address] [place] [phone] Isaura Wynn, MIRROR SPECIALIST 800 [facility] [address] [phone] 01/13/2025 11:30 AM EDT Appointment [facility] H Infusion 800 [place] [address] 01/14/2025 2:00 PM EDT Appointment [facility]fusion [address] [place] [address] 01/15/2025 2:00 PM EDT Appointment [facility] Infusion [address] [place] [address] 01/16/2025 2:00 PM EDT Appointment [facility]fusion [address] [place] [address] 01/17/2025 2:00 PM EDT Appointment [facility] Infusion [address] [place] [address] 01/18/2025 2:00 PM EDT Appointment [facility] Infusion [address] [place] [address] 01/19/2025 2:00 PM EDT Appointment [facility]fusion [address] [place] [address] 03/10/2025 11:20 AM EDT Office Visit Pav CC Head, Neck & Respiratory 800 [facility], 2nd [place] [address] Elsa Razo, MIRROR SPECIALIST [address] [place] [address] documented as of this encounter Visit Diagnoses Not on filedocumented in this encounter Additional Health Concerns Infection [...] documented as of this encounter Care Teams Ion Implant Machine Operator Relationship Specialty Start Date End Date Zhao Harris MD [address] [facility] [address] [place] [address] PCP - General 12/03/20 documented as of this encounter
--- OUTSIDE RECORDS SUMMARY | 2024-12-30 08:37 | XMS_ITS | Encounter Summary ---
Author Organization [facility] Address [address] [place] [address] Care Team Providers Care Bonding And Composite Fabricator Name Role Phone Zhao Harris MD Primary Care Provider [phone] Reason for Visit * Reason Comments Med Refill Encounter Details Date Type Department Care Team ([facility] Contact Info) Description 02/20/2022 Refill [facility] [place] Fellows [address] [facility], [address] [place] [address] Regina Hill, ARAM [address] [place] [address] Social History Tobacco Use Types Packs/Day Years [...] Upcoming Encounters Date Type Department Care Team ([facility] Contact Info) Description 01/06/2025 8:30 AM EDT Clinical Support P[facility] CC Hematology/BMT and Cellular Therapy Program [address] [phone] 01/06/2025 9:00 AM EDT Procedure Visit [facility] CC Hematology/BMT and Cellular Therapy Program 750 [facility], [address] [place] [phone] Kierra Novak, PETROLEUM INSPECTOR SUPERVISOR 800 [facility] [address] [place] [phone] 01/13/2025 9:30 AM EDT Clinical Support P[facility] CC Hematology/BMT and Cellular Therapy Program [address] [phone] 01/13/2025 10:00 AM EDT Office Visit [facility] CC Hematology/BMT and Cellular Therapy Program 750 [facility], [address] [place] [phone] Isaura Wynn, PETROLEUM INSPECTOR SUPERVISOR 800 [facility] [address] [place] [phone] 01/13/2025 11:30 AM EDT Appointment [facility] Infusion [address] [place] [address] 01/14/2025 2:00 PM EDT Appointment [facility] Infusion [address] [place] [address] 01/15/2025 2:00 PM EDT Appointment [facility] Infusion [address] [place] [address] 01/16/2025 2:00 PM EDT Appointment [facility] Infusion [address] [place] [address] 01/17/2025 2:00 PM EDT Appointment [facility] Infusion [address] [place] [address] 01/18/2025 2:00 PM EDT Appointment [facility] Infusion [address] [place] [address] 01/19/2025 2:00 PM EDT Appointment [facility]fusion [address] [place] [phone] 03/10/2025 11:20 AM EDT Office Visit Pav CC Head, Neck & Respiratory 800 [facility], 2nd [place] [phone] Elsa Razo, PETROLEUM INSPECTOR SUPERVISOR [address] [place] [address] documented as of this encounter Visit Diagnoses Not on filedocumented in this encounter Additional Health Concerns Infection Onset Date Last Indicated Resolved Time Respiratory Rule-Out 11/03/2024 11/03/2024 025 5:17 PM EDT documented as of this encounter Care Teams Bonding And Composite Fabricator Relationship Specialty Start Date End Date Zhao Harris MD [address] [place] [address] PCP - General 12/03/20 documented as of this encounter
--- OUTSIDE RECORDS SUMMARY | 2024-12-30 08:37 | XMS_ITS | Encounter Summary ---
Author Organization [facility] Address [address] [place] [address] Care Team Providers Care Table Games Shift Manager Name Role Phone Zhao Harris MD Primary Care Provider [phone] Reason for Visit * Reason Onset Date Comments Distress Screen Follow-up 11/25/2024 Encounter Details Date Type Department Care Team (Late st Contact Info) Description 11/25/2024 Telephone [facility] CC Hematology/BMT and Cellular Therapy Program [address] [place] [address] [place] [address] Michelle Mast Distress Screen Follow-up Social History Tobacco Use Types Packs/Day Years [...] drink first t manav in the morning (EYE-RISK CONTROL PRODUCT LIABILITY DIRECTOR) to steady your nerves or to [...] Upcoming Encounters Date Type Department Care Team ([facility] Contact Info) Description 01/06/2025 8:30 AM EDT Clinical Support PAV Hematology/BMT and Cellular Therapy Program [address] [place] [phone] 01/06/2025 9:00 AM EDT Procedure Visit PAV Hematology/BMT and Cellular Therapy Program [address] [phone] Kierra Novak, MECHANICS HANDYMAN 800 [facility] [address] [place] [phone] 01/13/2025 9:30 AM EDT Clinical Support PAV Hematology/BMT and Cellular Therapy Program [address] [address] 01/13/2025 10:00 AM EDT Office Visit PAV Hematology/BMT and Cellular Therapy Program [address] [place] [phone] Isaura Wynn, MECHANICS HANDYMAN 800 [facility] [address] [place] [phone] 01/13/2025 11:30 AM EDT Appointment P[facility] H Infusion [address] [place] [phone] 01/14/2025 2:00 PM EDT Appointment [facility] H Infusion [address] [place] [address] 01/15/2025 2:00 PM EDT Appointment [facility] H Infusion [address] [place] [address] 01/16/2025 2:00 PM EDT Appointment [facility] Infusion [address] [place] [phone] 01/17/2025 2:00 PM EDT Appointment [facility] Infusion [address] [place] [address] 01/18/2025 2:00 PM EDT Appointment [facility] H Infusion [address] [place] [address] 01/19/2025 2:00 PM EDT Appointment [facility] Infusion [address] [place] [address] 03/10/2025 11:20 AM EDT Office Visit Pav CC Head, Neck & Respiratory 800 [facility], 2nd [place] [phone] Elsa Razo, MECHANICS HANDYMAN [address] [place] [phone] documented as of this encounter Visit Diagnoses [...] as of this encounter Care Teams Table Games Shift Manager Relationship Specialty Start Date End Date Zhao Harris MD [address] [place] [address] PCP - General 12/03/20 documented as of this encounter
--- OUTSIDE RECORDS SUMMARY | 2024-12-30 08:37 | XMS_ITS | Encounter Summary ---
Author Organization [facility] Address [address] [place] [address] Care Team Providers Care Cold Patcher Name Role Phone Zhao Harris MD Primary Care Provider [phone] Encounter Details Date Type Department Care Team ([facility] st Contact Info) Description 11/03/2024 Telephone PAV CC Hematology/BMT and Cellular Therapy Program [address] [phone] Virgen Vargas MD 800 [facility] [address] [place] [address] Social History Tobacco Use Types Packs/Day Years [...] drink first t manav in the morning (EYE-DEXIGRAPH OPERATOR) to steady your nerves or to [...] No Risk Indicated 11/03/2024 2:35 PM EDT Iar Diamond RN * Question Answer Date of Assessment Author 1. Wish to be (Past 1 Month) No 025 2:35 PM EDT Ira Diamond RN 2. Non-Specific Active Suici berry Thoughts (Past 1 Month) No 11/03/2024 2:35 PM EDT Ira Diamond RN 6. Suicidal Behavior (Lifetime) No 2:35 PM EDT Ira Diamond RN documented as of this encounter Miscellaneous Notes * Telephone Encounter - Maia Kaplan RN - 11/03/2024 10:54 AM EDT RN returned call. Patient will proceed to ER as advised during earlier conversation regarding petechiae and fevers. RN also reviewed plan of care with primary team, patient's , and [facility] nurse Walters. RN added patient to ER expect board and updated ER charge nurse. * Telephone Encounter - Misty Patel - 11/03/2024 10:37 AM EDT Callback number: [phone] Patient's spouse calling stating they will be up here in about an hour. * Telephone Encounter - Misty Patel - 11/03/2024 9:26 AM EDT Nurse Selena is calling from [facility] about patient Callback number: [phone] documented in this encounter Plan of Treatment Upcoming Encounters Date Type Department Care Team ([facility] st Contact Info) Description 01/06/2025 8:30 AM EDT Clinical Support P[facility] CC Hematology/BMT and Cellular Therapy Program [address] [phone] 01/06/2025 9:00 AM EDT Procedure Visit [facility] CC Hematology/BMT and Cellular Therapy Program [address] [phone] Kierra Novak, MAINTENANCE SERVICE SUPERVISOR 800 [facility] [address] [place] [phone] 01/13/2025 9:30 AM EDT Clinical Support P[facility] CC Hematology/BMT and Cellular Therapy Program [address] [phone] 01/13/2025 10:00 AM EDT Office Visit P[facility] CC Hematology/BMT and Cellular Therapy Program [address] [phone] Isaura Wynn, MAINTENANCE SERVICE SUPERVISOR 800 [facility] [address] [place] [phone] 01/13/2025 11:30 AM EDT Appointment [facility] H Infusion 800 [place] [phone] 01/14/2025 2:00 PM EDT Appointment [facility] Infusion [address] [place] [phone] 01/15/2025 2:00 PM EDT Appointment [facility] Infusion [address] [place] [phone] 01/16/2025 2:00 PM EDT Appointment [facility] Infusion [address] [place] [address] 01/17/2025 2:00 PM EDT Appointment [facility] Infusion [address] [place] [address] 01/18/2025 2:00 PM EDT Appointment [facility]fusion [address] [place] [address] 01/19/2025 2:00 PM EDT Appointment [facility]fusion [address] [place] [address] 03/10/2025 11:20 AM EDT Office Visit Pav CC Head, Neck & Respiratory 800 [facility], 2nd [place] [address] Elsa Razo, MAINTENANCE SERVICE SUPERVISOR 800 [place] [address] documented as of this encounter Visit Diagnoses [...] documented as of this encounter Care Teams Cold Patcher Relationship Specialty Start Date End Date Zhao Harris MD [address] [address] PCP - General 12/03/20 documented as of this encounter
--- OUTSIDE RECORDS SUMMARY | 2024-12-30 08:37 | XMS_ITS | Encounter Summary ---
Author Organization [facility] Address [address] [place] [address] Care Team Providers Care Stain Remover Name Role Phone Zhao Harris MD Primary Care Provider [phone] Encounter Details Date Type Department Care Team (Latest Contact Info) Description 11/26/2024 Travel Social History Tobacco Use Types Packs/Day [...] drink first t manav in the morning (EYE-POLITICAL SCIENCE FACULTY MEMBER) to steady your nerves or to [...] CC Hematology/BMT and Cellular Therapy Program [address] [phone] 01/06/2025 9:00 AM EDT Procedure Visit P[facility] CC Hematology/BMT and Cellular Therapy Program [address] [phone] Kierra Novak, DEPUTY PROGRAM MANAGER 800 [facility] [address] [place] [phone] 01/13/2025 9:30 AM EDT Clinical Support PAV CC Hematology/BMT and Cellular Therapy Program [address] [address] 01/13/2025 10:00 AM EDT Office Visit PAV CC Hematology/BMT and Cellular Therapy Program [address] [phone] Isaura Wynn, DEPUTY PROGRAM MANAGER 800 [facility] [address] [place] [phone] 01/13/2025 11:30 AM EDT Appointment P[facility] H Infusion [address] [place] [phone] 01/14/2025 2:00 PM EDT Appointment [facility] Infusion [address] [place] [phone] 01/15/2025 2:00 PM EDT Appointment [facility] Infusion [address] [place] [phone] 01/16/2025 2:00 PM EDT Appointment [facility] Infusion [address] [place] [address] 01/17/2025 2:00 PM EDT Appointment [facility] Infusion [address] [place] [address] 01/18/2025 2:00 PM EDT Appointment [facility] Infusion [address] [place] [address] 01/19/2025 2:00 PM EDT Appointment [facility] Infusion [address] [place] [address] 03/10/2025 11:20 AM EDT Office Visit Pav CC Head, Neck & Respiratory 800 [facility], 2nd [place] [address] Elsa Razo, DEPUTY PROGRAM MANAGER [address] [place] [address] documented as of this encounter Visit Diagnoses [...] documented as of this encounter Care Teams Stain Remover Relationship Specialty Start Date End Date Zhao Harris MD [address] [place] [phone] PCP - General 12/03/20 documented as of this encounter
--- OUTSIDE RECORDS SUMMARY | 2024-12-30 08:37 | XMS_ITS | Encounter Summary ---
Author Organization [facility] Address [address] [place] [address] Care Team Providers Care Executive Consultant Name Role Phone Zhao Harris MD Primary Care Provider [phone] Reason for Visit * Reason Comments Med Refill Encounter Details Date Type Department Care Team (Late st Contact Info) Description 09/22/2021 Refill [facility] [address] [facility], [address] [place] [address] Regina Hill, ARAM 800 [place] [address] Coronary artery disease involving gila river heart with [...] CC Hematology/BMT and Cellular Therapy Program 750 [facility], [address] [place] [address] [place] [phone] 01/06/2025 9:00 AM EDT Procedure Visit [facility] CC Hematology/BMT and Cellular Therapy Program 750 [facility], [address] [place] [phone] Kierra Novak, ENGINEERING SYSTEMS ANALYST 800 [facility] [address] [place] [phone] 01/13/2025 9:30 AM EDT Clinical Support PAV CC Hematology/BMT and Cellular Therapy Program [address] [phone] 01/13/2025 10:00 AM EDT Office Visit [facility] CC Hematology/BMT and Cellular Therapy Program [address] [phone] Isaura Wynn, ENGINEERING SYSTEMS ANALYST 800 [facility] [address] [place] [phone] 01/13/2025 11:30 AM EDT Appointment [facility] 800 [place] [address] 01/14/2025 2:00 PM EDT Appointment [facility] 800 [place] [phone] 01/15/2025 2:00 PM EDT Appointment [facility] 800 [place] [phone] 01/16/2025 2:00 PM EDT Appointment [facility] 800 [place] [phone] 01/17/2025 2:00 PM EDT Appointment [facility] 800 [place] [phone] 01/18/2025 2:00 PM EDT Appointment [facility] 800 [place] [phone] 01/19/2025 2:00 PM EDT Appointment [facility] 800 [place] [address] 03/10/2025 11:20 AM EDT Office Visit Pav CC Head, Neck & Respiratory 800 [facility], 2nd [place] [address] Elsa Razo, ENGINEERING SYSTEMS ANALYST 800 [place] [address] documented as of this encounter Visit Diagnoses Diagnosis 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
[2024-12-30 08:40] LABS: Hematocrit 24.5 % (42.0-52.0); Hemoglobin 8.4 g/dL (14.1-18.0); Immature Granulocytes # 0 10^3uL; Immature Granulocytes % 0 %; Lymphocytes # 0.5 K/mm3 (0.7-4.5); Mean Corpuscular HGB Conc 34.3 g/dL (31.8-35.4); Mean Corpuscular Hemoglobin 29.2 pg (27.0-31.2); Mean Corpuscular Volume 85.1 fl (80-94); Monocytes % 3.5 % (1.7-9.3); Neutrophils % 3.5 % (37.0-80.0); Nucleated Red Blood Cells # 0 10^3/uL; Nucleated Red Blood Cells % 0 %; Red Blood Count 2.88 M/mm3 (4.60-6.20); Red Cell Distribution Width 14.9 % (11.5-17.5); Red Cell Distribution Width-SD 43.2 fL
[2024-12-30 08:44] LABS: Platelet Count 2 K/mm3 (142-424); White Blood Count 0.6 K/mm3 (4.8-10.8)
[2024-12-30 08:45] LABS: Albumin Level 3.9 g/dl (3.5-5.0); Chloride 113 mmol/L (98-107); MANUAL DIFFERENTIAL MANUAL DIFFERENTIAL (MANUAL DIFF); Potassium 4.2 mmoL/L (3.5-5.1); Sodium 140 mmol/L (136-145)
[2024-12-30 08:48] LABS: Alanine Aminotransferase 28 U/L (12-78); Albumin/Globulin Ratio 1.4 (1.1-1.8); Alkaline Phosphatase 99 U/L (38-126); Anion Gap 7.2 mEq/L (5-15); Aspartate Amino Transferase 35 U/L (17-59); Bilirubin,Total 0.5 mg/dl (0.2-1.3); Blood Urea Nitrogen 10 mg/dl (9-20); Carbon Dioxide 24 mmol/L (22.0-30.0); Creatinine Clearance Estimated 89 mL/min (50-200); Estimated Glomerular Filt Rate 112 ml/min (>60); GFR (African American) 135 ML/MIN (>60); Globulin 2.8 g/dL (1.3-3.2); Total Protein,Serum 6.7 g/dl (6.3-8.2)
[2024-12-30 08:49] LABS: Calcium 9.3 mg/dl (8.4-10.2); Glucose 118 mg/dl (74-100)
[2024-12-30 09:49] LABS: Lymphocytes % 86 % (10-50); Monocytes % 2 % (2-9); Neutrophils % 12 % (42-76); Total Cells Counted 50
--- NOTE | 2024-12-30 09:59 | PC.NURSE ---
0830 CBC, CMP collected via venipuncture to R AC with butterfly needle x 1 stick. Patient tolerated well. Patient does not want us to use his port-a-cath for this blood draw.
[2024-12-30 10:01] LABS: Platelet Estimate Marked Decrease; RBC Morphology Normal
[2024-12-30] MEDS: 0.9 % SODIUM CHLORIDE 250 ML 25 ML IV (15:01)
[2024-12-30] MEDS: SODIUM CHLORIDE 0.9% 10ML FLUSH SYRINGE 10 ML IV (16:20)
== END 2024-12-30 16:25 | disposition home or self-care (01) ==
LOC: INF 08:26
PROVIDERS: PCP Family Medicine; Visit Provider Internal Medicine Medical Oncology
DX: D64.9 Anemia, unspecified (principal)
CPT/HCPCS: 36415; 36430; 80053; 85007; 85025; 85027; 86900; 86901; J1642; J7050; P9034

== ENCOUNTER 2025-01-05 08:13 | Outpatient (CLI) | payer MEDICARE, SELFPAY ==
--- OUTSIDE RECORDS SUMMARY | 2024-11-10 13:30 | XMS_ITS | Encounter Summary ---
Author Organization Healthcare Address [address] [place] [address] Care Team Providers Care Forklift Technician Name Role Phone Zhao Harris MD Primary Care Provider [phone] Reason for Visit * Reason Comments Labs Encounter Details Date Type Department Care Team ([facility] st Contact Info) Description 11/10/2024 1:30 PM EDT Clinical Support [facility] Hematology/BMT and Cellular Therapy Program [address] [place] [address] [place] [address] Eliana Vicente, RN [facility] Social History Tobacco Use [...] drink first t manav in the morning (EYE-HEAD STOCK OPERATOR) to steady your nerves or to get [...] Upcoming Encounters Date Type Department Care Team ([facility] st Contact Info) Description 01/06/2025 8:30 AM EDT Clinical Support [facility] Hematology/BMT and Cellular Therapy Program [address] [place] [phone] 01/06/2025 9:00 AM EDT Procedure Visit [facility] Hematology/BMT and Cellular Therapy Program [address] [place] [phone] Kierra Novak, CUSTOMER EXPERIENCE STRATEGIST 800 [facility] [address] [place] [phone] 01/13/2025 9:30 AM EDT Clinical Support [facility] Hematology/BMT and Cellular Therapy Program [address] [place] [phone] 01/13/2025 10:00 AM EDT Office Visit [facility] Hematology/BMT and Cellular Therapy Program [address] [place] [address] [phone] Isaura Wynn, CUSTOMER EXPERIENCE STRATEGIST 800 [facility] [address] [place] [phone] 01/13/2025 11:30 AM EDT Appointment [facility] Infusion [address] [place] [phone] 01/14/2025 2:00 PM EDT Appointment [facility] [address] [place] [phone] 01/15/2025 2:00 PM EDT Appointment [facility] [address] [place] [address] 01/16/2025 2:00 PM EDT Appointment [facility] [address] [place] [address] 01/17/2025 2:00 PM EDT Appointment [facility] [address] [place] [address] 01/18/2025 2:00 PM EDT Appointment [facility] [address] [place] [address] 01/19/2025 2:00 PM EDT Appointment [facility] [address] [place] [address] 03/10/2025 11:20 AM EDT Office Visit [facility] Head[facility] Neck [facility] Respiratory [address] [facility], [address]nd [place] [address] Elsa Razo, CUSTOMER EXPERIENCE STRATEGIST [address] [place] [address] documented as of this encounter Visit Diagnoses [...] documented as of this encounter Care Teams Forklift Technician Relationship Specialty Start Date End Date Zhao Harris MD [address] [address] PCP - General 12/03/20 documented as of this encounter
--- OUTSIDE RECORDS SUMMARY | 2024-11-10 14:00 | XMS_ITS | Encounter Summary ---
Author Organization [facility] Address [address] [place] [address] Care Team Providers Care Optimization Analyst Name Role Phone Zhao Harris MD Primary Care Provider [phone] Reason for Visit * Reason Comments Procedure * Genetic Testing (Routine) - Authorized Specialty Diagnoses / Procedures Referred By Justice mcgee Referred To Contact Lab Diagnoses Myelodysplasia (myelodysplastic syndrome) (CMS/HCC) Procedures Cytogenetics Testing, Oncology Virgen Vargas MD [address] [facility] [address] [place] [phone] Phone: tel: fax: Referral ID Status Reason Start Date Expiration Date V isits Requested Visits Authorized [id number] Authorized 10/16/2024 04/17/2026 1 1 Encounter Details Date Type Department Care Team (Latest Contact Info) Description 11/10/2024 2:00 PM EDT Procedure Visit [facility] Hematology/BMT and Cellular Therapy Program [address] [place] [address] Elaina Boss PA 800 [facility] [address] [place] [phone] Myelodysplasia (myelodysplastic syndrome) (CMS/HCC) (Primary Dx) Social History Tobacco Use Types Packs/Day Years [...] drink first t manav in the morning ([employer]) to steady your nerves or to get [...] Sign Reading Time Taken Comments Blood Pressure 117/76 11/10/2024 1:47 PM EDT Pulse 65 11/10/2024 1:47 PM EDT Temperature 37 C (98.6 F) 11/10/2024 1:47 PM EDT Respiratory Rate 16 11/10/2024 1:47 PM EDT Oxygen Saturation 94% 11/10/2024 1:47 PM EDT Inhaled Oxygen Concentration - - Weight 87.7 kg (193 lb 5.5 oz) 11/10/2024 1:47 P M EDT Height 170.2 cm (5' 7.01 ) 11/10/2024 1:47 PM ED T Body Mass Index 30.27 11/10/2024 1:47 PM EDT documented in this encounter Miscellaneous Notes * Progress Notes - Elaina Boss PA - 11/10/2024 2:00 PM EDTAssociated Order(s): Biopsy bone marrow Patient ID: Hugo Lyons is a 69 y.o. male. Encounter Diagnosis Name Primary? Myelodysplasia (myelodysplastic syndrome) (CMS/HCC) Yes Biopsy bone marrow Performed by: Elaina Boss PA Authorized by: Elaina Boss PA Patient Name: Hugo Lyons Date of : 1955 69 y.o. Date: 11/10/24 Time-Out was called at 1430. Procedure performed: bone marrow biopsy Correct patient confirmed using two patient identifiers: Yes Confirmed procedure to be performed: Yes Verified procedure site/side: Yes Consent given/obtained: Yes Pre-procedure medications given: No Procedure performed by: Elaina Boss PA-C Patient Diagnosis: AML The patient was placed in the prone position. The left posterior iliac crest was identified and thesite was marked. The area was sterile prepped and draped. Local anesthetic was injected superficially at the marked site, then into deeper tissues, including periosteally. A small incision was made at the site and an 11 gauge Jamshidi needle was inserted into the left posterior iliac crest. Bone mar row aspirate and core biopsy were obtained from a single anchor. The instrument was then removed and pressure was held at the site. The area was cleaned and a dry sterile pressure dressing was applied. The patient was placed in the supine recumbent position. There were no complications. [facility] CC HEMATOLOGY/BMT AND CELLULAR THERAPY PROGRAM [address] [facility] [phone] / documented in this encounter Plan of Treatment Upcoming Encounters Date Type Department Care Team ([facility] st Contact Info) Description 01/06/2025 8:30 AM EDT Clinical Support [facility] Hematology/BMT and Cellular Therapy Program 750 [facility], [address] [place] [address] [place] [phone] 01/06/2025 9:00 AM EDT Procedure Visit [facility] Hematology/BMT and Cellular Therapy Program 750 [facility], [address] [place] [address] [place] [phone] Kierra Novak, CHEMIST BIOLOGICAL 800 [facility] [address] [place] [phone] 01/13/2025 9:30 AM EDT Clinical Support [facility] Hematology/BMT and Cellular Therapy Program [address] [facility], [address] [place] [phone] 01/13/2025 10:00 AM EDT Office Visit [facility] Hematology/BMT and Cellular Therapy Program [address] [facility], [address] [place] [phone] Isaura Wynn, CHEMIST BIOLOGICAL 800 [facility] [address] [place] [phone] 01/13/2025 11:30 AM EDT Appointment [facility] Infusion [address] [place] [phone] 01/14/2025 2:00 PM EDT Appointment [facility] [address] [place] [phone] 01/15/2025 2:00 PM EDT Appointment [facility] [address] [place] [phone] 01/16/2025 2:00 PM EDT Appointment [facility] [address] [place] [phone] 01/17/2025 2:00 PM EDT Appointment [facility] [address] [place] [phone] 01/18/2025 2:00 PM EDT Appointment [facility] [address] [place] [address] 01/19/2025 2:00 PM EDT Appointment [facility] [address] [place] [phone] 03/10/2025 11:20 AM EDT Office Visit [facility] Head, Neck & Respiratory [address] [facility], [address] [place] [phone] Elsa Razo, CHEMIST BIOLOGICAL [address] [place] [phone] Scheduled Orders Name Type Priority Associated Diagnoses Orde r Schedule CBC and Differential Lab Routine Myelodysplasia (myelodysplastic syndrome) (CMS/HCC) 3x a week and PRN for 999 Occurrences starting 11/10/2024 until 05/12/2026 documented as of this encounter Procedures Procedure Name Priority Date/Time Associated Diagnosis Comments CYTOGENETICS TESTING, ONCOLOGY Routine 11/10/2024 2:30 PM EDT Myelodysplasia (myelodysplastic syndrome) (CMS/HCC) CHROMOSOME KARYOTYPE, ONCOLOGY Routine 11/10/2024 2:30 PM EDT Myelodysplasia (myelodysplastic syndrome) (CMS/HCC) LEUKEMIA/LYMPHOMA - IMMUNOPHENOTYPING BY FLOW CYTOMETRY Routine 11/10/2024 2:30 PM EDT Myelodysplasia (myelodysplastic syndrome) (CMS/HCC) BONE MARROW EXAM Routine 11/10/2024 2:30 PM EDT Myelodysplasia (myelodysplastic syndrome) (CMS/HCC) BIOPSY BONE MARROW Routine 11/10/2024 2: 00 PM EDT Myelodysplasia (myelodysplastic syndrome) (CMS/HCC) CBC WITH AUTO DIFFERENTIAL Routine 11/10/2024 1:39 PM EDT Myelodysplasia (myelodysplastic syndrome) (CMS/HCC) COMPREHENSIVE METABOLIC PANEL, PLASMA Routine 11/10/2024 1:39 PM EDT Myelodysplasia (myelodysplastic syndrome) (CMS/HCC) documented in this encounter Results * Chromosome Karyotype, Oncology (11/10/2024 2:30 PM EDT) Specimen Type Bone Marrow 11/19/2024 5:03 PM EDT [facility] Clinical Indication Acute Myeloid Leukemia 11/19/2024 5:03 PM EDT [facility] Chromosome Analysis Result Giemsa-banded metaphase cells from unstimulated bone marrow cultures showed the following chromosome pattern: 43~46,X,-Y,t(4;14 )(q21;q32),add(5) (q13),add(16)(q11 .2),-17,add(20)(q 11.2),+mar[cp14]/ 46,XY[6] 11/19/2024 5:03 PM EDT [facility] Interpretation Abnormal male chromosome analysis. 70% of analyzed metaphase cells had a composite karyotype with 43 to 46 chromosomes and the following clonal abnormalities: -Y - loss of the Y chromosome t(4;14)(q21;q32) - reciprocal translocation between one chromosome 4 and one chromosome 14 at bands 4q21 and 14q32 add(5)(q13) - additional material of unknown origin on one chromosome 5 at band 5q13 add(16)(q11.2) - additional material of unknown origin on one chromosome 16 at band 16q11.2 -17 - loss of a normal chromosome 17 add(20)(q11.2) - additional material of unknown origin on one chromosome 20 at band 20q11.2 +mar - marker chromosome of unknown origin In summary, these findings are consistent with presence of complex 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 Clinical correlation is recommended. Note: Per [employer] ([employer]) requirement additional karyotypes were performed and charged due to the presence of clonal abnormalities. # cells counted = 20 # cells analyzed = 20 # cells karyotyped = 4 Band resolution: 400-450 11/19/2024 5:03 PM EDT [facility] Pathologist Signature Reviewed by: Mesfin Rae 11/19/2024 5:03 PM EDT [facility] Bone Marrow Non-blood Collection / Unknown 11/10/2024 2:30 PM EDT 11/10/2024 3:39 PM EDT us Virgen Vargas MD LAB CYTOGENETICS ORDERABLES F inal Result [facility] [address] [place] [address] * Leukemia/Lymphoma - Immunophenotyping by Flow Cytometry (11/10/2024 2:30 PM EDT) Clinical Indication AML 11/11/2024 10:49 AM EDT [facility] Flow Cytometry Interpretation A. BONE MARROW FOR FLOW CYTOMETRY: - ACUTE MYELOID LEUKEMIA (APPROXIMATELY 40-50% BLASTS EXPRESSING CD117, VARIABLE CD34, CD13, CD33, PARTIAL CD15, DIM CD4, PARTIAL CD7, DIM CD123, PARTIAL CD 38, AND VARIABLE CD45), SEE COMMENT. 11/11/2024 10:49 AM T [facility] Comments CD45/side scatter analysis shows an expansion of the progenitor region extending to the CD45 negative region corresponding to a population of aberrant myeloid blasts with the phenotype given in the diagnosis. This population accounts for 50-60% of total events. B-cells are 1.4% of events and are mature and polytypic. A few plasma cells are present. T-cells comprise 16% of events and show a normal phenotype with a CD4 to CD8 ratio of 2.4:1. Also present are a minute population of NK cells and some maturing granulocytes. The findings indicate an expanded population of aberrant myeloid blasts with a similar phenotype to that reported for the blasts in the previously reviewed MDS/AML, consistent with acute myeloid leukemia. Final interpretation requires clinical and morphologic correlation. CD45, CD2, CD3, CD4, CD5, CD7, CD8, CD10, CD13, CD14, CD15, CD16, CD19, CD20, CD33, CD34, CD38, CD56, CD117, HLA-DR, kappa surface light chains, lambda surface light chains 11/11/2024 10:49 AM [facility] Disclaimer This test was developed and its performance characteristics determined by the [facility] It has not been cleared or approved by the U.S. Food and Drug Administration. This test, which utilizes analyte specific reagents, does not require FDA approval. This test is used for clinical purposes. It should not be regarded as investigational or for research. This laboratory is certified under the Clinical Laboratory Improvement Amendments of 1988 (CLIA-88) as qualified to perform high complexity clinical laboratory testing. This service has been rendered in part by a resident. A pathologist has personally reviewed the test results and has rendered and is responsible for the diagnosis that appears on the report. 11/11/2024 10:49 AM T [facility] Pathologist Signature Reviewed by: Martha Lopez MD 11/11/2024 10:49 AM EDT [facility] MRD Indicated Test Not Indicated 10:49 AM EDT [facility] Bone Marrow Specimen from bone marrow obtained by aspiration / Unknown Non-blood Collection / Unknown 11/10/2024 2:30 PM EDT 11/10/2024 3:28 PM EDT us Virgen Vargas MD LAB FLOW CYTOMETRY ORDERABLES Final Result [facility] [address] [place] [address] * Bone marrow exam (11/10/2024 2:30 PM EDT) Case Report Bone Marrow Case: [id number] Authorizing Provider: Virgen Vargas MD Collected: 11/10/2024 1430 Ordering Location: [facility] Hematology/BMT and Received: 11/10/2024 [facility] Cellular Therapy Program Pathologist: Martha Lopez MD Specimens: A) - Bone Marrow Aspirate, left B) - Bone Marrow Biopsy, left C) - Peripheral Blood for Bone Marrow 10:39 AM EDT [facility] Cytogenetics Report, Addendum Chromosome Analysis Result Giemsa-banded metaphase cells from unstimulated bone marrow cultures showed the following chromosome pattern: 43~46,X,-Y,t(4;14 )(q21;q32),add(5) (q13),add(16)(q11 .2),-17,add(20)(q 11.2),+mar[cp14]/ 46,XY[6] Interpretation Abnormal male chromosome analysis. 70% of analyzed metaphase cells had a composite karyotype with 43 to 46 chromosomes and the following clonal abnormalities: -Y - loss of the Y chromosome t(4;14)(q21;q32) - reciprocal translocation between one chromosome 4 and one chromosome 14 at bands 4q21 and 14q32 add(5)(q13) - additional material of unknown origin on one chromosome 5 at band 5q13 add(16)(q11.2) - additional material of unknown origin on one chromosome 16 at band 16q11.2 -17 - loss of a normal chromosome 17 add(20)(q11.2) - additional material of unknown origin on one chromosome 20 at band 20q11.2 +mar - marker chromosome of unknown origin In summary, these findings are consistent with presence of complex 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 Clinical correlation is recommended. 10:39 AM EDT [facility] Addendum electronically signed by Martha Lopez MD on 11/20/2024 at 1039 EDT Final Diagnosis A. PERIPHERAL BLOOD AND BONE MARROW, LEFT POSTERIOR ILIAC CREST, (PERIPHERAL SMEAR, ASPIRATE SMEAR, AND CORE BIOPSY): - ACUTE MYELOID LEUKEMIA (35% BLASTS IN HYPERCELLULAR BONE MARROW WITH ASSOCIATED DYSPOIESIS), SEE COMMENT. 10:39 AM EDT [facility] at 1644 EDT Comment The history of myelodysplastic syndrome is noted, and findings are consistent with AML, myelodysplasia related. 10:39 AM T [facility] Clinical Information AmL 10:39 AM T [facility] CBC and Differential PERIPHERAL BLOOD: 11/10/2024: WBC Count 0.97 (Ref range: 3.70 - 10.30 10*3/uL); HGB 7.3 (Ref range: 13.7 - 17.5 g/dL); HCT 20.3 (Ref range: 40.0 - 51.0 %); Platelet Count 6 (Ref range: 155 - 369 10*3/uL); MCV 98 (Ref range: 79 - 98 fL) DIFFERENTIAL:11/10: Neutrophils % 20; Lymphocytes % 76; Monocytes % 4; Basophils % 0; Eosinophils % 0; Immature Granulocytes % 0 Review of the peripheral smear demonstrates marked leukopenia with neutropenia, normocytic anemia, and marked thrombocytopenia. Rare circulating blasts are seen. 10:39 AM EDT [facility] Bone Marrow Differential BONE MARROW DIFFERENTIAL: 200 cells Normal Patient Neutrophils 15-50 5 Metamyelocytes 4-19 2 Myelocytes 1-18 1 Promyelocytes 1-8 2 Blasts 0-2 35 Monocytes 0-5 1 Erythroid 16-38 49 Lymphocytes 3-24 4 Eosinophils 0-6 0 Basophils 0-2 0 Plasma cells 0-4 1 Other 10:39 AM T [facility] Bone Marrow Aspirate and Biopsy The bone marrow cellularity is 40%. There is a marked increase in blasts (35% by morphology). Blasts are medium-sized with round to ovoid nuclei, open chromatin, indistinct nucleoli and scant to moderate lightly basophilic cytoplasm. No Betsy rods are seen. Occasional blasts have cytoplasmic vacuoles. Megakaryocytes are present in reduced numbers. Megakaryocyte morphology is predominantly normal with occasional hypolobated and small forms. Erythroid maturation is increased with nuclear to cytoplasmic dyssynchrony and nuclear irregularity. Granulocytic maturation is decreased and left-shifted. Iron stores are increased. No ring sideroblasts are observed. No metastatic tumor is identified. No lymphoma is identified. No granulomas are identified. Bone trabeculae are unremarkable. 10:39 AM [facility] Special and Immunohistochemical Stains Special Stain: A1-1 Christine-Giemsa A1-2 Christine-Giemsa A1-3 Christine-Giemsa A1-4 Iron C1-1 Christine-Giemsa IHC: There are no tasks to display for the given criteria. All controls show appropriate reactivity. All immunohistochemis try, in situ hybridization, and histochemical tests were developed by and are performed at the [facility], [address] [place] [address]. All tests reported here, except those addressing HER2 (breast) and PD-L1 expression as predictive markers, have not been cleared by or approved by the US Food and Drug Administration (FDA). The FDA has determined that such clearance or approval is not necessary. The laboratory is regulated under CLIA as qualified to perform high-complexity testing. The tests are used for clinical purposes. They should not be regarded as investigational or for research. This assay has not been validated on decalcified tissues. Results should be interpreted with caution given the likelihood of false negativity on decalcified specimens. 10:39 AM [facility] Flow Cytometry Interpretation A. BONE MARROW FOR FLOW CYTOMETRY: - ACUTE MYELOID LEUKEMIA (APPROXIMATELY 40-50% BLASTS EXPRESSING CD117, VARIABLE CD34, CD13, CD33, PARTIAL CD15, DIM CD4, PARTIAL CD7, DIM CD123, PARTIAL CD 38, AND VARIABLE CD45), SEE COMMENT. 10:39 AM EDT [facility] CYTOGENETICS/MOLECULA R INTERPRETATION Correlation with cytogenetic/molec ular analysis is suggested. 10:39 AM EDT [facility] Gross Description B. LEFT A single specimen is received in formalin labeled bone marrow biopsy left posterior iliac crest and consists of 1 piece(s) of red/white tissue measuring 1.5 cm in length 0.2 cm in diameter. The specimen is submitted in to Histology for decalcification and routine processing. Cold Time: <1m 10:39 AM EDT [facility] Note: A resident was involved in the service. I attest I examined the relevant preparations for the specimens and confirmed the diagnosis or interpretation. 10:39 AM EDT [facility] Bone Marrow Peripheral blood specimen / Unknown Non-blood Collection / Unknown 11/10/2024 2:30 PM EDT 11/10/2024 3:21 PM EDT Bone marrow specimen (specimen) Specimen from bone marrow obtained by biopsy / Unknown 11/10/2024 2:30 PM EDT 11/10/2024 3:21 PM EDT Bone marrow specimen (specimen) Peripheral blood specimen / Unknown 11/10/2024 2:30 PM EDT 11/10/2024 3:21 PM EDT Virgen Vargas MD LAB PATHOLOGY ORDERABLES Edit ed Result - Final [facility] [address] [place] [address] * BIOPSY BONE MARROW (11/10/2024 2:00 PM EDT) Narrative Elaina Boss PA - 11/10/2024 2:00 PM EDT Elaina Boss PA 11/10/2024 3:36 PM Biopsy bone marrow Performed by: Elaina Boss PA Authorized by: Elaina Boss PA us Elaina [facility] IN CLINIC/BEDSIDE ORDERABLE S Final Result * (ABNORMAL) Comprehensive metabolic panel (11/10/2024 1:39 PM EDT) [facility] Glucose, Plasma 98 74 - 99 mg/dL 11/10/2024 2:40 PM EDT [facility] BUN, Plasma 10 8 - 23 mg/dL 11/10/2024 2:40 PM EDT [facility] Creatinine, Plasma 0.95 0.70 - 1.20 mg/dL 11/10/2024 2:40 PM EDT [facility] BUN/Creatinine Ratio 11 11/10/2024 2:40 PM EDT [facility] Sodium, Plasma 140 136 - 145 mmol/L 11/10/2024 2:40 PM EDT [facility] Potassium, Plasma 4.0 3.6 - 4.9 mmol/L 11/10/2024 2:40 PM EDT [facility] Chloride, Plasma 108(H) 97 - 107 mmol/L 11/10/2024 2:40 PM EDT [facility] CO2, Plasma 20(L) 22 - 29 mmol/L 11/10/2024 2:40 PM EDT [facility] Anion Gap 12 6 - 16 mmol/L 11/10/2024 2:40 PM EDT [facility] Total Calcium, Plasma 9.2 8.9 - 10.2 mg/dL 11/10/2024 2:40 PM EDT [facility] Total Protein 6.9 6.3 - 7.9 g/dL 11/10/2024 2:40 PM EDT [facility] Albumin, Plasma 3.8 3.5 - 5.2 g/dL 11/10/2024 2:40 PM EDT [facility] AST, Plasma 35 10 - 50 U/L 11/10/2024 2:40 PM EDT [facility] ALT, Plasma 42 10 - 50 U/L 11/10/2024 2:40 PM EDT [facility] Alkaline Phosphatase, Plasma 66 40 - 115 U/L 11/10/2024 2:40 PM EDT [facility] Total Bilirubin, Plasma 0.6 0.2 - 1.1 mg/dL 11/10/2024 2:40 PM EDT [facility] eGFRcr 86.6 mL/min/1.7 3m*2 11/10/2024 2:40 PM EDT [facility] Comment:Reported eGFRcr in m L/min/1.73m2 is based the CKD-EPI 2020 equation that does not use a race coefficient. Blood Venous blood specimen / Unknown Venipuncture / Unknown 11/10/2024 1:39 PM EDT 11/10/2024 2:07 PM EDT us Virgen Vargas MD LAB BLOOD ORDERABLES Final Re sult [facility] [address] [place] [address] * (ABNORMAL) CBC and differential (11/10/2024 1:39 PM EDT) WBC Count 0.97(LL) 3.70 - 10.30 10*3/uL LAB HEMATOLOGY METHOD 11/10/2024 2:24 PM EDT [facility] RBC Count 2.08(L) 4.60 - 6.10 10*6/uL LAB HEMATOLOGY METHOD 11/10/2024 2:24 PM EDT [facility] HGB 7.3(L) 13.7 - 17.5 g/dL LAB HEMATOLOGY METHOD 11/10/2024 2:24 PM EDT [facility] HCT 20.3(L) 40.0 - 51.0 % LAB HEMATOLOGY METHOD 11/10/2024 2:24 PM EDT [facility] Platelet Count 6(LL) 155 - 369 10*3/uL LAB HEMATOLOGY METHOD 11/10/2024 2:24 PM EDT [facility] Comment:Consistent with prio r results MCV 98 79 - 98 fL LAB HEMATOLOGY METHOD 11/10/2024 2:24 PM EDT [facility] Comment:Results inconsistent with previous lab findings. MCH 35.1(H) 26.0 - 32.0 pg LAB HEMATOLOGY METHOD 11/10/2024 2:24 PM EDT [facility] MCHC 36.0(H) 30.7 - 35.5 g/dL LAB HEMATOLOGY METHOD 11/10/2024 2:24 PM EDT [facility] RDW 19.9(H) 11.5 - 14.5 % LAB HEMATOLOGY METHOD 11/10/2024 2:24 PM EDT [facility] MPV LAB HEMATOLOGY METHOD 11/10/2024 2:24 PM EDT [facility] Comment:Not Measured nRBC 0.0 <=0.0 per 100 WBCs LAB HEMATOLOGY METHOD 11/10/2024 2:24 PM EDT [facility] Differential Type Automated LAB HEMATOLOGY METHOD 11/10/2024 2:24 PM EDT [facility] Neutrophils % 20 % LAB HEMATOLOGY METHOD 11/10/2024 2:24 PM EDT [facility] Lymphocytes % 76 % LAB HEMATOLOGY METHOD 11/10/2024 2:24 PM EDT [facility] Monocytes % 4 % LAB HEMATOLOGY METHOD 11/10/2024 2:24 PM EDT [facility] Eosinophils % 0 % LAB HEMATOLOGY METHOD 11/10/2024 2:24 PM EDT [facility] Basophils % 0 % LAB HEMATOLOGY METHOD 11/10/2024 2:24 PM EDT [facility] Immature Granulocytes % 0 % LAB HEMATOLOGY METHOD 11/10/2024 2:24 PM EDT [facility] Neutrophils Absolute 0.19(LL) 1.60 - 6.10 10*3/uL LAB HEMATOLOGY METHOD 11/10/2024 2:24 PM EDT [facility] Lymphocytes Absolute 0.74(L) 1.20 - 3.90 10*3/uL LAB HEMATOLOGY METHOD 11/10/2024 2:24 PM EDT [facility] Monocytes Absolute 0.04(L) 0.30 - 0.90 10*3/uL LAB HEMATOLOGY METHOD 11/10/2024 2:24 PM EDT [facility] Eosinophils Absolute 0.00 0.00 - 0.50 10*3/uL LAB HEMATOLOGY METHOD 11/10/2024 2:24 PM EDT [facility] Basophils Absolute 0.00 0.00 - 0.10 10*3/uL LAB HEMATOLOGY METHOD 11/10/2024 2:24 PM EDT [facility] Immature Granulocytes Absolute 0.00 0.00 - 0.06 10*3/uL LAB HEMATOLOGY METHOD 11/10/2024 2:24 PM EDT [facility] Blood Venous blood specimen / Unknown Venipuncture / Unknown 11/10/2024 1:39 PM EDT 11/10/2024 1:49 PM EDT Narrative [facility] - 11/10/2024 2:24 PM EDT Therapeutic decision making should be based on absolute values, rather than percentages. Virgen Vargas MD LAB BLOOD ORDERABLES Final Re sult [facility] [address] [place] [address] documented in this encounter Visit Diagnoses Diagnosis Myelodysplasia (myelodysplastic syndrome) (CMS/HCC)- Primary Myelodysplastic syndrome, unspecified documented in this encounter Additional Health Concerns Assessment Noted Time PHQ-9 Depression Total Score: 0 09/11/19 25 9:15 AM EST A fall risk assessment has been complete d for the patient 11/10/2024 3:29 PM EDT A Body Mass Index follow-up plan has been documented for the patient 11/10/2024 1:06 PM EDT documented as of this encounter Care Teams Optimization Analyst Relationship Specialty Start Date End Date Zhao Harris MD [address] [place] [address] [place] [address] PCP - General 12/03/20 documented as of this encounter
--- OUTSIDE RECORDS SUMMARY | 2024-11-10 15:00 | XMS_ITS | Encounter Summary ---
Author Organization [facility] Address [address] [place] [address] Care Team Providers Care Business Technology Teacher Name Role Phone Zhao Harris MD Primary Care Provider [phone] Encounter Details Date Type Department Care Team (Latest Contact Info) Description 11/10/2024 3:00 PM EDT - 11/10/2024 11:59 PM EDT Hospital Encounter [facility] [address] [place] [address] Myelodysplasia (myelodysplastic syndrome) (CMS/HCC) (Primary Dx); Thrombocytopenia (CMS/HCC) Discharge Disposition: Home or Self Care [...] drink first t manav in the morning (EYE-DIRECTOR INSTITUTION) to steady your nerves or to get [...] Sign Reading Time Taken Comments Blood Pressure 121/72 11/10/2024 4:43 PM EDT Pulse 70 11/10/2024 4:43 PM EDT Temperature 36.9 C (98.4 F) 11/10/2024 4:43 PM EDT Respiratory Rate 20 11/10/2024 4:43 PM EDT Oxygen Saturation - - Inhaled Oxygen Concentration - - Weight 87.3 kg (192 lb 7.4 oz) 11/10/2024 3:29 P M EDT Height 170.2 cm (5' 7 ) 11/10/2024 3:29 PM EDT Body Mass Index 30.14 11/10/2024 3:29 PM EDT documented in this encounter Medications at Time of Discharge acyclovir (Zovirax) 800 MG tabletIndications :Myelodysplasia (myelodysplastic syndrome) (CMS/HCC) Take 1 tablet (800 mg) by mouth in the morning and 1 tablet (800 mg) before bedtime. 60 tablet 3 10/14/2024 bisoprolol (Zebeta) 5 MG tabletIndications :Coronary artery disease involving [place] heart with angina pectoris, unspecified vessel or lesion type (CMS/HCC),Hyperte nsion, unspecified type Take 1 tablet (5 mg) by mouth daily. 90 tablet 3 09/11/2024 levoFLOXacin (Levaquin) 500 MG tabletIndications :Myelodysplasia (myelodysplastic syndrome) (CMS/HCC) Take 1 tablet (500 mg) by mouth daily. 30 tablet 3 10/14/2024 posaconazole (Noxafil) [address] tabletIndications :Myelodysplasia [...] needed for constipation. 30 tablet 3 10/23/2024 HYDROcodone-aceta minophen ([place]) 5-325 MG tablet Take 1 tablet by mouth every 6 hours as needed. 11/07/2024 nitroglycerin (Nitrostat) 0.4 MG SL tabletIndications :Coronary artery disease involving [place] heart with angina pectoris, unspecified vessel or lesion type (CMS/HCC) Place 1 tablet (0.4 mg) under the tongue every 5 (five) minutes as needed for chest pain. 10 tablet 11 09/11/2024 aspirin 81 MG chewable tablet Chew 1 tablet (81 mg) 1 (one) time each day. aspirin 81 mg tablet 30 tablet 11 11/29/2023 5 amLODIPine (Norvasc) 2.5 MG tabletIndications :Coronary artery disease involving [place] heart with angina pectoris, unspecified vessel or lesion type (CMS/HCC),Hyperte nsion, unspecified type Take 1 tablet (2.5 mg) by mouth daily. 90 tablet 3 09/11/2024 5 hydrocortisone 2.5 % cream Apply 1 Application topically as needed. 10/30/2024 5 isosorbide mononitrate ER (Imdur) 30 MG 24 hr tablet Take 1 tablet (30 mg) by mouth daily. Do not crush or chew. 30 tablet 11 10/03/2024 nicotine (Nicoderm CQ) 21 MG/24HR patch Place 1 patch on the skin 1 (one) time each day at the same time. 28 patch 09/29/2024 documented as of this encounter Plan of Treatment Upcoming Encounters Date Type Department Care Team (Late st Contact Info) Description 01/06/2025 8:30 AM EDT Clinical Support [facility] Hematology/BMT and Cellular Therapy Program [address] [phone] 01/06/2025 9:00 AM EDT Procedure Visit [facility] Hematology/BMT and Cellular Therapy Program [address] [phone] Kierra Novak, DIRECTORY OPERATOR 800 [facility] [address] [place] [phone] 01/13/2025 9:30 AM EDT Clinical Support [facility] Hematology/BMT and Cellular Therapy Program [address] [address] 01/13/2025 10:00 AM EDT Office Visit [facility] Hematology/BMT and Cellular Therapy Program [address] [phone] Isaura Wynn, DIRECTORY OPERATOR 800 [facility] [address] [place] [phone] 01/13/2025 11:30 AM EDT Appointment [facility] [address] [place] [address] 01/14/2025 2:00 PM EDT Appointment [facility] [address] [place] [address] 01/15/2025 2:00 PM EDT Appointment [facility] [address] [place] [address] 01/16/2025 2:00 PM EDT Appointment [facility] [address] [place] [address] 01/17/2025 2:00 PM EDT Appointment [facility] [address] [place] [address] 01/18/2025 2:00 PM EDT Appointment [facility] [address] [place] [address] 01/19/2025 2:00 PM EDT Appointment [facility] [address] [place] [address] 03/10/2025 11:20 AM EDT Office Visit [facility] CC Head, Neck & Respiratory 800 [facility], [address] [place] [address] Elsa Razo, DIRECTORY OPERATOR [address] [place] [address] documented as of this encounter Procedures Procedure Name Priority Date/Time Associated Diagnosis Comments PLATELET COUNT, BLOOD STAT 11/10/2024 4:54 PM EDT Myelodysplasia (myelodysplastic syndrome) (CMS/HCC) PREPARE PLATELETS Routine 11/10/2024 3:3 2 PM EDT Myelodysplasia (myelodysplastic syndrome) (CMS/HCC) Thrombocytopenia (CMS/HCC) documented in this encounter Results * Transfuse platelets (11/10/2024 6:09 PM EDT) us Kayli CHIU BLOOD TRANSFUSION ORDERA BLES Final Result * (ABNORMAL) Platelet count (11/10/2024 4:54 PM EDT) Platelet Count 34(L) 155 - 369 10*3/uL LAB HEMATOLOGY METHOD 11/10/2024 5:37 PM EDT [facility] Blood Venous blood specimen / Unknown Venipuncture / Unknown 11/10/2024 4:54 PM EDT 11/10/2024 5:22 PM EDT us Virgen Vargas MD LAB BLOOD ORDERABLES Final Re sult [facility] [address] [place] [address] * Prepare Leukocyte Reduced Platelets: 1 Units (11/10/2024 3:32 PM EDT) Product Code [id number] CH BLOO D BANK Dispense Status Transfused BLOOD BANK Blood Expiration Date [id number] BLOOD BANK Unit Number [id number] CH B LOOD BANK Product Blood Type 2800 BLOOD BANK Blood Type AB- CH BLOOD BANK Blood Venous blood specimen / Unknown us Kayli CHIU BLOOD BANK PRODUCT ORDER VIKAS Final Result BLOOD BANK [address] documented in this encounter Visit Diagnoses Diagnosis Myelodysplasia (myelodysplastic syndrome) (CMS/HCC)- Primary Myelodysplastic syndrome, unspecified Thrombocytopenia (CMS/HCC) Unspecified thrombocytopenia documented in this encounter Additional Health Concerns Assessment Noted Time PHQ-9 Depression Total Score: 0 09/11/19 25 9:15 AM EST A fall risk assessment has been complete d for the patient 11/10/2024 3:29 PM EDT A Body Mass Index follow-up plan has been documented for the patient 11/10/2024 1:06 PM EDT documented as of this encounter Care Teams Business Technology Teacher Relationship Specialty Start Date End Date Zhao Harris MD [address] [place] [address] PCP - General 12/03/20 documented as of this encounter
--- OUTSIDE RECORDS SUMMARY | 2024-11-18 10:30 | XMS_ITS | Encounter Summary ---
Author Organization [facility] Address [address] [place] [address] Care Team Providers Care Car Framer Name Role Phone Zhao Harris MD Primary Care Provider [phone] Reason for Visit * Reason Comments Nurse Visit Labs Encounter Details Date Type Department Care Team ([facility] Contact Info) Description 11/18/2024 10:30 AM EDT Clinical Support [facility] Hematology/BMT and Cellular Therapy Program [address] [place] [address] [place] [address] Social History Tobacco Use Types Packs/Day Years [...] drink first t manav in the morning (EYE-VARIETY LATHE OPERATOR) to steady your nerves or to [...] Upcoming Encounters Date Type Department Care Team ([facility] st Contact Info) Description 01/06/2025 8:30 AM EDT Clinical Support [facility] Hematology/BMT and Cellular Therapy Program [address] [phone] 01/06/2025 9:00 AM EDT Procedure Visit [facility] Hematology/BMT and Cellular Therapy Program [address] [place] [phone] Kierra Novak, ELECTRICAL TROUBLESHOOTER 800 [facility] [address] [place] [phone] 01/13/2025 9:30 AM EDT Clinical Support [facility] Hematology/BMT and Cellular Therapy Program [address] [phone] 01/13/2025 10:00 AM EDT Office Visit [facility] Hematology/BMT and Cellular Therapy Program [address] [phone] Isaura Wynn, ELECTRICAL TROUBLESHOOTER 800 [facility] [address] [place] [phone] 01/13/2025 11:30 AM EDT Appointment [facility]fusion [address] [place] [address] 01/14/2025 2:00 PM EDT Appointment [facility] [address] [place] [phone] 01/15/2025 2:00 PM EDT Appointment [facility] [address] [place] [address] 01/16/2025 2:00 PM EDT Appointment [facility] [address] [place] [address] 01/17/2025 2:00 PM EDT Appointment [facility] [address] [place] [address] 01/18/2025 2:00 PM EDT Appointment [facility] [address] [place] [address] 01/19/2025 2:00 PM EDT Appointment [facility] [address] [place] [address] 03/10/2025 11:20 AM EDT Office Visit Pav CC Head, Neck & Respiratory 800 [facility], [address] [place] [address] Elsa Razo, ELECTRICAL TROUBLESHOOTER [address] [place] [address] documented as of this encounter Visit Diagnoses Not on filedocumented in this encounter Additional Health Concerns Assessment Noted Time PHQ-9 Depression Total Score: 0 09/11/19 25 9:15 AM EST A fall risk assessment has been complete d for the patient 11/18/2024 12:27 PM EDT A Body Mass Index follow-up plan has been documented for the patient 11/10/2024 1:06 PM EDT documented as of this encounter Care Teams Car Framer Relationship Specialty Start Date End Date Zhao Harris MD [address] [address] PCP - General 12/03/20 documented as of this encounter
--- OUTSIDE RECORDS SUMMARY | 2024-11-18 11:00 | XMS_ITS | Encounter Summary ---
Author Organization [facility] Address [address] 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 Name Role Phone Zhao Harris MD Primary Care Provider [phone] Reason for Referral * Imaging (Routine) - Closed Specialty Diagnoses / Procedures Referred By Justice mcgee Referred To Contact Radiology Diagnoses Myelodysplasia (myelodysplastic syndrome) (CMS/HCC) Procedures IR Port Placement 5+ Years Consult to Interventional Radiology Isaura Wynn APRN 800 [facility] [address] [address] Phone: tel: fax: Referral ID Status Reason Start Date Expiration Date Visits Re quested Visits Authorized [id number] Closed 11/18/2024 05/20/2026 1 1 * Genetic Testing (Routine) - Closed Specialty Diagnoses / Procedures Referred By Justice mcgee Referred To Contact Lab Diagnoses Myelodysplasia (myelodysplastic syndrome) (CMS/HCC) Procedures Cytogenetics Testing, Oncology Virgen Vargas MD [address] [address] Phone: tel: fax: Referral ID Status Reason Start Date Expiration Date Visits Re quested Visits Authorized [id number] Closed 11/18/2024 05/20/2026 1 1 * Genetic Testing (Routine) - Authorized Specialty Diagnoses / Procedures Referred By Justice mcgee Referred To Contact Lab Diagnoses Myelodysplasia (myelodysplastic syndrome) (CMS/HCC) Procedures Leukemia/Lymphoma - Immunophenotyping by Flow Cytometry Virgen Vargas MD [address] [address] Phone: tel: fax: Referral ID Status Reason Start Date Expiration Date V isits Requested Visits Authorized [id number] Authorized 11/18/2024 05/20/2026 1 1 * Genetic Testing (Routine) - Authorized Specialty Diagnoses / Procedures Referred By Justice mcgee Referred To Contact Lab Diagnoses Myelodysplasia (myelodysplastic syndrome) (CMS/HCC) Procedures Bone marrow exam Virgen Vargas MD [address] [address] Phone: tel: fax: Referral ID Status Reason Start Date Expiration Date V isits Requested Visits Authorized [id number] Authorized 11/18/2024 05/20/2026 1 1 Encounter Details Date Type Department Care Team (Latest Contact Info) Description 11/18/2024 11:00 AM EDT Office Visit [facility] Hematology/BMT and Cellular Therapy Program [address] [place] [address] Isaura Wynn, ESTRELLA [address] [address] Myelodysplasia (myelodysplastic syndrome) (CMS/HCC) (Primary Dx) [...] drink first t manav in the morning (EYE-JUDICIAL ADMINISTRATIVE ASSISTANT) to steady your nerves or to get [...] Sign Reading Time Taken Comments Blood Pressure - - Pulse - - Temperature - - Respiratory Rate - - Oxygen Saturation - - Inhaled Oxygen Concentration - - Weight 87 kg (191 lb 12.8 oz) 11/18/2024 10:07 A M EDT Height - - Body Mass Index 30.04 11/10/2024 3:29 PM EDT documented in this encounter Miscellaneous Notes * Progress Notes - Isaura Wynn, ESTRELLA - 11/18/2024 11:00 AM EDT HEMATOLOGY ONCOLOGY NOTE Patient ID: Hugo Lyons is a 69 y.o. male. Referring Physician: No referring provider defined for this encounter. Primary Care Provider: Zhao Harris MD Chief Complaint: No chief complaint on file. Treatment Plan: Azacitidine Daily x 7 / Venetoclax Every 28 Days Subjective History of Present Illness: 69 y.o. male who presents for management of myeldysplastic syndrome/acute myeloid leukemia. His history is as below: Current Medications[1] History: Oncology History Overview Note 2019- routine CBC showed mild thrombocytopenia. 03/2023- lab sowed an elevated MCV (103.3) and a platelet count of 92 k/??L, though WBC and hemoglobin were normal. 05/2024- CBC showed a WBC of 3.6 k/??L, hemoglobin of 14 g/dL, and platelet count of 36 k/??L, withan elevated MCV of 100.. He reported occasional alcohol consumption but had no concerning clinical symptoms. Iron studies, B12/folate levels, and hemolysis labs were unremarkable. 07/2024- abdominal CT scan showed no abnormalities. 08/2024- labs worsening cytopenia with a WBC of 2.3 k/??L, hemoglobin of 11.6 g/dL, and platelets of22 k/??L, prompting a bone marrow biopsy on September 19. 09/19/2024- bone marrow exam: Morphology: High-grade myeloid neoplasm, at least myelodysplastic neoplasm with increased blasts (MDS-IB-2), bordering on evolving leukemia with 15-17% blasts. Normocellular bone marrow (30-40% cellularity) with multilineage dysplasia, slightly decreased granulopoiesis, frequent erythroid islands, and occasional hypolobated megakaryocytes. No significant reticulin fibrosis or ring sideroblasts identified. Flow Cytometry: Increased population of myeloblasts (17%) expressing CD34, CD117, partial CD38, partial CD7, HLA-DR, CD13, and variable CD33; negative for CD56 and CD19. Monocytes (3.1%) were immunophenotypically unremarkable. Lymphocytes (17.5%) showed a preserved mata-T cell profile with a CD4:MV8zxgbm of 2.7:1. Polyclonal B-cells (3%) and a small plasma cell population (0.6%) were also identified. Cytogenetics: Normal. Molecular Testing: PCR for NPM1 and FLT3 mutations are negative. Next-generation sequencing (NGS) myeloid panel is pending. Myelodysplasia (myelodysplastic syndrome) (CMS/HCC) 09/29/2024 Initial Diagnosis Myelodysplasia (myelodysplastic syndrome) (CMS/HCC) 10/20/2024 - Chemotherapy azaCITIDine (Vidaza) 150 mg in sodium chloride 0.9 % 50 mL IVPB, 75 mg/m2 = 150 mg, Intravenous, Once, 1 of 24 cycles Administration: 150 mg (10/20/2024), 150 mg (10/21/2024), 150 mg (10/22/2024), 150 mg (10/23/2024), 150 mg(10/24/2024), 150 mg (10/25/2024), 150 mg (10/26/2024) Past Medical History: Diagnosis Date Arteriosclerotic cardiovascular disease Chronic stable angina (CMS/HCC) Hypertension Past Surgical History: Procedure Laterality Date TOTAL KNEE ARTHROPLASTY Right after broken patella Family History Problem Relation Name Age of Onset Diabetes Other Heart attack Other Social History Tobacco Use Smoking status: Every Day Average packs/day: 1.5 packs/day for 15.0 years (22.5 ttl pk-yrs) Types: Cigarettes Start date: 1994 Passive exposure: Current Smokeless tobacco: Never Vaping Use Vaping status: Never Used Substance Use Topics Alcohol use: Yes Alcohol/week: 6.0 standard drinks of alcohol Types: 6 Cans of beer per week Drug use: Never Interval History: Hugo Lyons feels well overall except for fatigue. He would like to discuss results of bone marrow biopsy. 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 Review of systems: 14- point ROS is reviewed and negative except in HPI. Objective Physical Exam: Vital Signs for this encounter: BSA: 2.03 meters squared Visit Vitals Wt 87 kg (191 lb 12.8 oz) BMI 30.04 kg/m?? Smoking Status Every Day BSA 2.03 m?? GENERAL: appears stated age, no acute distress HEENT anicteric sclerae without conjunctival injection NECK: Trachea appears midline RESP: No increased work of breathing on room air. No wheezes or crackles CARDIAC: regular rate and rhythm. Normal S1, S2. No murmurs. MUSK: no joint swelling or deformity. GI: no signs of cachexia, abdomen soft, lax, not tender. No masses SKIN: No obvious rashes or lesions NEURO: Alert and awake. 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 His hematologic history dates back to 2019, when mild thrombocytopenia was first noted. Over time, he developed progressive cytopenias. In March 2023, laboratory workup revealed an elevated mean corpuscular volume (MCV) of 103.3 fL and a platelet count of 92,000/??L, while white blood cell (WBC) count and hemoglobin remained within normal limits. By May 2024, his CBC showed WBC 3.6 k/??L, hemoglobin 14 g/dL, and platelets 36 k/??L, with a persistently elevated MCV of 100 fL. A comprehensive evaluation--including iron studies, vitamin B12/folate levels, and hemolysis labs--was unremarkable. Abdominal imaging in July 2024 did not identify any concerning findings. In August 2024, continued decline in blood counts (WBC 2.3 k/??L, hemoglobin 11.6 g/dL, k/??L) prompted a bone marrow biopsy on September 19, which demonstrated a 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 The biopsy revealed 15-17% blasts, multilineage dysplasia, and no fibrosis or ring sideroblasts. Flow cytometry showed 17% myeloblasts expressing CD34, CD117, CD13, and variably CD33. Cytogenetics and FLT3/NPM1 testing were normal, and next-generation sequencing (NGS) is still pending. Cycle 1 azacitidine/venetoclax 10/20/24 Bone marrow biopsy after cycle 1 shows 40-50% blasts Proceed with cycle 2 today, 11/18/24. Discussed with patient and family that we will proceed with cycle 2 today and repeat bone marrow biopsy. If he is still not in remission after this cycle, additional treatment options must be discussed in the future. Headaches- CT head in 11/03/24 shows no intracranial abnormalities. Pancytopenia related to leukemia/MDS. Plan CBC x three times/week and transfuse PRBCs if Hb < 7 or platelets < 10. Use only leukoreduced and irradiated blood products. 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 Plan to start prophylactic posaconazole, acyclovir, and levofloxacin when treatment is started. Coronary artery disease with stable angina. Underwent cardiac stress testing and showed a small area of active ischemia and he was started on Imdur. Agree with holding ASA due to thrombocytopenia. Atorvastatin will be switched to rosuvastatin due to DDI between posaconazole and atorvastatin. He will need cardiac clearance prior to allogenic transplant. Tobacco and alcohol use. Started nicotine replacement. Stressed the need to stop smoking and reducealcohol intake if BMT would be an option in the future. ESTRELLA Claire HEMATOLOGY/BMT AND CELLULAR THERAPY PROGRAM [address] [place] [phone] [1] Current Outpatient Medications: acyclovir (Zovirax) 800 MG tablet, Take 1 tablet (800 mg) by mouth in the morning and 1 tablet (800mg) before bedtime., Disp: 60 tablet, Rfl: 3 amLODIPine (Norvasc) 2.5 MG tablet, Take 1 tablet (2.5 mg) by mouth daily., Disp: 90 tablet, Rfl: 3 bisoprolol (Zebeta) 5 MG tablet, Take 1 tablet (5 mg) by mouth daily., Disp: 90 tablet, Rfl: 3 HYDROcodone-acetaminophen ([place]) 5-325 MG tablet, Take 1 tablet by mouth every 6 hours as needed.,Disp: , Rfl: hydrocortisone 2.5 % cream, Apply 1 Application topically as needed., Disp: , Rfl: levoFLOXacin (Levaquin) 500 MG tablet, Take 1 tablet (500 mg) by mouth daily., Disp: 30 tablet, Rfl: 3 nicotine (Nicoderm CQ) 21 MG/24HR patch, Place 1 patch on the skin 1 (one) time each day at the same time., Disp: 28 patch, Rfl: 0 posaconazole (Noxafil) [address] tablet, Take 3 tablets (300 mg) by mouth daily with breakfast. Starting Cycle 1 Day 3 of venetoclax, take 300mg twice daily for 2 doses, then 300mg daily every day from then on. Do not crush, chew, or split., Disp: 90 tablet, Rfl: 5 prochlorperazine (Compazine) 10 MG tablet, Take 1 tablet (10 mg) by mouth every 6 hours as needed for nausea or vomiting., Disp: 30 tablet, Rfl: 5 rosuvastatin (Crestor) 40 MG tablet, Take 1 tablet (40 mg) by mouth daily., Disp: 30 tablet, Rfl: 11 senna-docusate sodium (Senokot-S) 8.6-50 MG tablet, Take 2 tablets by mouth at night as needed for constipation., Disp: 30 tablet, Rfl: 3 aspirin 81 MG chewable tablet, Chew 1 tablet (81 mg) 1 (one) time each day. aspirin 81 mg tablet (Patient not taking: Reported on 11/18/2024), Disp: 30 tablet, Rfl: 11 isosorbide mononitrate ER (Imdur) 30 MG 24 hr tablet, Take 1 tablet (30 mg) by mouth daily. Do not crush or chew. (Patient not taking: Reported on 11/18/2024), Disp: 30 tablet, Rfl: 11 nitroglycerin (Nitrostat) 0.4 MG SL tablet, Place 1 tablet (0.4 mg) under the tongue every 5 (five)minutes as needed for chest pain. (Patient not taking: Reported on 11/18/2024), Disp: 10 tablet, Rfl: 11 * Progress Notes - Marlin Storey, PharmD - 11/18/2024 11:00 AM EDT Pharmacy Hematology/Oncology Treatment Note Hugo Lyons is a 69 y.o. male with MDS Study Patient: no Treatment Plan reviewed for azacitidine/venetoclax [x] Follow-Up Clinical Review for Cycle 2 Interval History: BMBx from 11/10 showed persistent disease. Okay to proceed with cycle 2. Will repeat BMBx after this cycle. Today's Wt: Wt Readings from Last 1 Encounters: 11/18/24 86.1 kg (189 lb 13.1 oz) Dosing Wt: 90 kg Dosing Ht: 170.2 cm DosingBSA: 2.02 m2 Recent Labs: Lab Results Component Value Date WBC 0.78 (LL) 11/18/2024 HGB 7.2 (L) 11/18/2024 HCT 19.9 (L) 11/18/2024 MCV 99 (H) 11/18/2024 PLT 5 (LL) 11/18/2024 Lab Results Component Value Date GLUCOSE 105 (H) 11/18/2024 CALCIUM 8.9 11/18/2024 NA 139 11/18/2024 K 4.2 11/18/2024 CO2 21 (L) 11/18/2024 CL 109 (H) 11/18/2024 BUN 12 11/18/2024 CREATININE 1.02 11/18/2024 Lab Results Component Value Date ALT 94 (H) 11/18/2024 AST 103 (H) 11/18/2024 ALKPHOS 94 11/18/2024 BILITOT 0.6 11/18/2024 Lab Results Component Value Date NEUTROABS 0.09 (LL) 11/18/2024 Lab Results Component Value Date MG 2.0 10/22/2024 Lab Results Component Value Date TSH 1.02 10/20/2024 Lab Results Component Value Date URINEPRO 30 (A) 11/03/2024 Vitals: There were no vitals taken for this visit. Treatment/Therapy Plan: Azacitidine 75 mg/m2 IV D1-7 Venetoclax 70 mg PO D1-14 Every 28 days [x] Venetoclax dose reduced d/t DDI with posaconazole Current Treatment Plan History: Aza/Hany: Cycle 1: 10/20/24 Cycle 2: 11/18/24 Prior Treatment History: N/A Plan: Venetoclax rx sent to [facility]. Refills due monthly. Patient will return to clinic in 4 weeks. Will follow-up at that time. documented in this encounter Plan of Treatment Upcoming Encounters Date Type Department Care Team ([facility] Contact Info) Description 01/06/2025 8:30 AM EDT Clinical Support [facility] Hematology/BMT and Cellular Therapy Program [address] [phone] 01/06/2025 9:00 AM EDT Procedure Visit [facility] Hematology/BMT and Cellular Therapy Program [address] [phone] Kierra Novak, INTENSIVIST 800 [facility] [address] [place] [phone] 01/13/2025 9:30 AM EDT Clinical Support [facility] Hematology/BMT and Cellular Therapy Program 750 [facility] [place] [address] 01/13/2025 10:00 AM EDT Office Visit [facility] Hematology/BMT and Cellular Therapy Program 750 [facility] [place] [address] Isaura Wynn, INTENSIVIST 800 [facility] [address] [place] [phone] 01/13/2025 11:30 AM EDT Appointment [facility] H Infusion [address] [place] [address] 01/14/2025 2:00 PM EDT Appointment [facility] Infusion [address] [place] [address] 01/15/2025 2:00 PM EDT Appointment [facility] H Infusion [address] [place] [address] 01/16/2025 2:00 PM EDT Appointment [facility] H Infusion [address] [place] [address] 01/17/2025 2:00 PM EDT Appointment [facility] H Infusion [address] [place] [address] 01/18/2025 2:00 PM EDT Appointment [facility] H Infusion [address] [place] [address] 01/19/2025 2:00 PM EDT Appointment [facility] H Infusion [address] [place] [address] 03/10/2025 11:20 AM EDT Office Visit Pav CC Head, Neck & Respiratory 800 [facility], [address] [place] [phone] Elsa Razo, INTENSIVIST [address] [place] [phone] documented as of this encounter Procedures Procedure Name Priority Date/Time Associated Diagnosis Comments TYPE AND SCREEN Routine 11/18/2024 12:21 PM EDT Myelodysplasia (myelodysplastic syndrome) (CMS/HCC) CBC WITH AUTO DIFFERENTIAL Routine 11/18/2024 10:00 AM EDT Myelodysplasia (myelodysplastic syndrome) (CMS/HCC) COMPREHENSIVE METABOLIC PANEL, PLASMA Routine 11/18/2024 10:00 AM EDT Myelodysplasia (myelodysplastic syndrome) (CMS/HCC) documented in this encounter Results * (ABNORMAL) CBC and differential (12/11/2024 8:38 AM EDT) [facility] WBC Count 0.61(LL) 3.70 - 10.30 10*3/uL LAB HEMATOLOGY METHOD 12/11/2024 10:54 AM EDT [facility] RBC Count 2.80(L) 4.60 - 6.10 10*6/uL LAB HEMATOLOGY METHOD 12/11/2024 10:54 AM EDT [facility] HGB 8.9(L) 13.7 - 17.5 g/dL LAB HEMATOLOGY METHOD 12/11/2024 10:54 AM EDT [facility] HCT 25.1(L) 40.0 - 51.0 % LAB HEMATOLOGY METHOD 12/11/2024 10:54 AM EDT [facility] Platelet Count 11(LL) 155 - 369 10*3/uL LAB HEMATOLOGY METHOD 12/11/2024 10:54 AM EDT [facility] MCV 90 79 - 98 fL LAB HEMATOLOGY METHOD 12/11/2024 10:54 AM EDT [facility] MCH 31.8 26.0 - 32.0 pg LAB HEMATOLOGY METHOD 12/11/2024 10:54 AM EDT [facility] MCHC 35.5 30.7 - 35.5 g/dL LAB HEMATOLOGY METHOD 12/11/2024 10:54 AM EDT [facility] RDW 16.2(H) 11.5 - 14.5 % LAB HEMATOLOGY METHOD 12/11/2024 10:54 AM EDT [facility] MPV 12.3 8.8 - 12.5 fL LAB HEMATOLOGY METHOD 12/11/2024 10:54 AM EDT [facility] nRBC 4.9(H) <=0.0 per 100 WBCs LAB HEMATOLOGY METHOD 12/11/2024 10:54 AM EDT [facility] Differential Type Manual LAB HEMATOLOGY METHOD 12/11/2024 10:54 AM EDT [facility] Blood Venous blood specimen / Unknown Venipuncture / Unknown 12/11/2024 8:38 AM EDT 12/11/2024 8:50 AM EDT Narrative [facility] - 12/11/2024 10:54 AM EDT Therapeutic decision making should be based on absolute values, rather than percentages. The previously reported component Neutrophils % is no longer being reported.The previously reported component Lymphocytes % is no longer being reported.The previously reported component Monocytes % is no longer being reported.The previously reported component Eosinophils % is no longer being reported.The previously reported component Basophils % is no longer being reported.The previously reported component Immature Granulocytes % is no longer being reported.The previously reported component Absolute Neutrophils is no longer being reported.The previously reported component Absolute Lymphocytes is no longer being reported.The previously reported component Absolute Monocytes is no longer being reported.The previously reported component Absolute Eosinophils is no longer being reported.The previously reported component Absolute Basophils is no longer being reported.The previously reported component Absolute Immature Granulocytes is no longer being reported. us Virgen Vargas MD LAB BLOOD ORDERABLES Final Re sult [facility] [address] [place] [phone] * Leukemia/Lymphoma - Immunophenotyping by Flow Cytometry (12/09/2024 10:15 AM EDT) Clinical Indication AML 12/10/2024 8:51 AM EDT [facility] Flow Cytometry Interpretation APPROXIMATELY 23% POPULATION OF CD34 POSITIVE MYELOID BLASTS EXPRESSING CD34, CD117, CD13, CD33, HLA-DR, PARTIAL CD7, VARIABLE CD123, PARTIAL CD38, AND MODERATE CD45, SEE COMMENT, BONE MARROW ASPIRATE. 12/10/2024 8:51 AM EDT [facility] Comments Specimen viability is 86.0%. Flow cytometric analysis shows an expansion of the progenitor region of CD45/side scatter analysis corresponding to a population of aberrant blasts with the phenotype given in the diagnosis. T cells constitute 12.4% of total analyzed events and show normal expression of tested antigens with a CD4/CD8 ratio of 1.8:1. B cells comprise 0.3% of total events and are polytypic with a kappa to lambda ratio of 1.1:1. There is also 0.8% plasma cells and a small population of NK cells. The remaining events are 0.2% monocytes and left-shifted and decreased myeloid cells. In summary, this bone marrow flow cytometric analysis demonstrates approximately 23% population of CD34 positive myeloid blasts with a similar immunophenotype as previous leukemic blasts. The findings are worrisome for persistent disease. Final interpretation requires clinical, morphologic and cytogenetic correlation. The following antibodies were used in this analysis: CD45, CD2, CD3, CD4, CD5, CD7, CD8, CD10, CD13, CD14, CD15, CD16, CD19, CD20, CD33, CD34, CD38, CD56, CD117, HLA-DR, kappa surface light chains, lambda surface light chains, CD123 12/10/2024 8:[address] [facility] Disclaimer This test was developed and its performance characteristics determined by the Immuno-Molecular Pathology Laboratory at the [facility]. It has not been cleared or approved [...] the diagnosis that appears on the report. 12/10/2024 8:[address] [facility] Pathologist Signature Reviewed by: Gerry Jensen MD 12/10/2024 8:51 AM EDT [facility] MRD Indicated Test Not Indicated 8:51 AM EDT [facility] Bone Marrow Specimen from bone marrow obtained by aspiration / Unknown Non-blood Collection / Unknown 12/09/2024 10:15 AM EDT 12/09/2024 11:28 AM EDT us Virgen Vargas MD LAB FLOW CYTOMETRY ORDERABLES Final Result [facility] [address] [place] [address] * Bone marrow exam (12/09/2024 10:15 AM EDT) Case Report Bone Marrow Case: [id number] Authorizing Provider: Virgen Vargas MD Collected: 12/09/2024 1015 Ordering Location: [facility] Hematology/BMT and Received: 12/09/2024 1145 Cellular Therapy Program Pathologist: Gerry Jensen MD Specimens: A) - Bone Marrow Aspirate, right B) - Bone Marrow Biopsy, right C) - Peripheral Blood for Bone Marrow 12/19/2024 5:35 PM EDT [facility] Cytogenetics Report, Addendum Chromosome Analysis Result: Giemsa-banded metaphase cells from unstimulated bone marrow cultures showed the following chromosome pattern: 43~45,X,-Y,t(4;14 )(q21;q32),add(5) (q13),add(16)(q11 .2),-17,add(20)(q 11.2)[cp13]/46,XY [7] Abnormal male chromosome analysis. 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 12/19/2024 5:35 PM EDT [facility] Addendum electronically signed by Gerry Jensen MD on 12/19/2024 at 1735 EDT Final Diagnosis PERIPHERAL BLOOD AND BONE MARROW, RIGHT POSTERIOR ILIAC CREST, (PERIPHERAL SMEAR, ASPIRATE SMEAR, AND CORE BIOPSY): - NORMOCELLULAR BONE MARROW WITH ERYTHROID HYPERPLASIA, VIRTUALLY ABSENT MATURING GRANULOPOIESIS, AND 14% BLASTS, SEE COMMENT. 12/19/2024 5:35 PM EDT [facility] at 1706 EDT Comment While by flow cytometric analysis blasts constitute 23% of cellularity, the majority of bone marrow cellularity consists of erythroid precursors that are removed by flow cytometry. This leads to the discrepancy between the percentage of blasts by flow cytometry and morphologic examination. Nonetheless, the findings are consistent with some residual disease. 12/19/2024 5:35 PM EDT [facility] Clinical Information AML s/p cycle 2 12/19/2024 5:35 PM EDT [facility] CBC and Differential PERIPHERAL BLOOD: 12/09/2024: WBC Count 0.68 (Ref range: 3.70 - 10.30 10*3/uL); HGB 7.5 (Ref range: 13.7 - 17.5 g/dL); HCT 20.6 (Ref range: 40.0 - 51.0 %); Platelet Count 24 (Ref range: 155 - 369 10*3/uL); MCV 88 (Ref range: 79 - 98 fL) DIFFERENTIAL:12/01: Immature Granulocytes % 0 12/09/2024: Neutrophils % 10; Lymphocytes % 87; Monocytes % 2; Basophils % 0; Eosinophils % 0; Metamyelocytes % 0; Myelocytes % 0; Promyelocytes % 0; Blasts % 1 Review of the peripheral blood smear shows marked leukopenia with severe neutropenia. Red blood cells demonstrate moderate normocytic anemia with slight polychromasia and occasional elliptocytes. Few circulating nucleated red blood cells are noted. Platelets are decreased. 12/19/2024 5:35 PM EDT [facility] Bone Marrow Differential BONE MARROW DIFFERENTIAL: 400 cells Normal Patient Neutrophils 15-50 0 Metamyelocytes 4-19 0 Myelocytes 1-18 1 Promyelocytes 1-8 0 Blasts 0-2 14 Monocytes 0-5 3 Erythroid 16-38 76 Lymphocytes 3-24 1 Eosinophils 0-6 0 Basophils 0-2 0 Plasma cells 0-4 5 Other 12/19/2024 5:35 PM EDT [facility] Aspirate Smear The bone marrow aspirate smears show several cellular marrow particles with increased number of blasts that constitute 14% of cellularity. Blasts are medium-sized with round to slightly irregular nuclei, fine chromatin, and scant to moderate lightly basophilic cytoplasm. Occasional blasts have cytoplasmic vacuoles. No Betsy rods are seen. Erythroid precursors are increased and show cytologic changes including nuclear budding, nuclear membrane irregularity, binucleation, and nuclear to cytoplasmic dyssynchrony. Some of the erythroid precursors also contain cytoplasmic vacuoles. Maturing granulopoiesis is virtually absent. Megakaryocytes are decreased and show predominantly normal morphology. 12/19/2024 5:35 PM T [facility] Core Biopsy The core biopsy is small and shows 5 mm of a normocellular bone marrow with a cellularity of approximately 30% that is predominantly comprised of erythroid precursors. Erythropoiesis is left-shifted, but maturing. Maturing granulopoiesis is virtually absent. Myeloid cells almost entirely consists of immature precursors. Megakaryocytes are decreased and exhibit predominantly normal morphology. 12/19/2024 5:35 PM T [facility] Flow Cytometry Interpretation Flow cytometric analysis shows approximately 23% population of CD34 positive myeloid blasts expressing CD34, CD117, CD13, CD33, HLA-DR, partial CD7, variable CD123, partial CD38, and moderate CD45 ([id number]). 12/19/2024 5:35 PM T [facility] Gross Description B. RIGHT A single specimen is received in formalin labeled bone marrow biopsy right posterior iliac crest and consists of 1 piece(s) of red/white tissue measuring 0.7 cm in length 0.2 cm in diameter. The specimen is submitted in to Histology for decalcification and routine processing. Cold Time: <1m 12/19/2024 5:35 PM T [facility] Note: A resident was involved in the service. I attest I examined the relevant preparations for the specimens and confirmed the diagnosis or interpretation. 12/19/2024 5:35 PM T [facility] Bone Marrow Peripheral blood specimen / Unknown Non-blood Collection / Unknown 12/09/2024 10:15 AM EDT 12/09/2024 11:45 AM EDT Bone marrow specimen (specimen) Specimen from bone marrow obtained by biopsy / Unknown 12/09/2024 10:15 AM EDT 12/09/2024 11:45 AM EDT Bone marrow specimen (specimen) Peripheral blood specimen / Unknown 12/09/2024 10:15 AM EDT 12/09/2024 11:46 AM EDT us Virgen Vargas MD LAB PATHOLOGY ORDERABLES Edit ed Result - Final [facility] [address] [place] [address] * (ABNORMAL) Comprehensive metabolic panel (12/09/2024 8:45 AM EDT) Glucose, Plasma 103(H) 74 - 99 mg/dL 12/09/2024 9:33 AM EDT [facility] BUN, Plasma 9 8 - 23 mg/dL 12/09/2024 9:33 AM EDT [facility] Creatinine, Plasma 0.78 0.70 - 1.20 mg/dL 12/09/2024 9:33 AM EDT [facility] BUN/Creatinine Ratio 12 12/09/2024 9:33 AM EDT [facility] Sodium, Plasma 140 136 - 145 mmol/L 12/09/2024 9:33 AM EDT [facility] Potassium, Plasma 3.9 3.6 - 4.9 mmol/L 12/09/2024 9:33 AM EDT [facility] Chloride, Plasma 109(H) 97 - 107 mmol/L 12/09/2024 9:33 AM EDT [facility] CO2, Plasma 21(L) 22 - 29 mmol/L 12/09/2024 9:33 AM EDT [facility] Anion Gap 10 6 - 16 mmol/L 12/09/2024 9:33 AM EDT [facility] Total Calcium, Plasma 9.0 8.9 - 10.2 mg/dL 12/09/2024 9:33 AM EDT [facility] Total Protein 6.6 6.3 - 7.9 g/dL 12/09/2024 9:33 AM EDT [facility] Albumin, Plasma 3.9 3.5 - 5.2 g/dL 12/09/2024 9:33 AM EDT [facility] AST, Plasma 31 10 - 50 U/L 12/09/2024 9:33 AM EDT [facility] ALT, Plasma 37 10 - 50 U/L 12/09/2024 9:33 AM EDT [facility] Alkaline Phosphatase, Plasma 81 40 - 115 U/L 12/09/2024 9:33 AM EDT [facility] Total Bilirubin, Plasma 0.6 0.2 - 1.1 mg/dL 12/09/2024 9:33 AM EDT [facility] eGFRcr 96.5 mL/min/1.7 3m*2 12/09/2024 9:33 AM EDT [facility] Comment:Reported eGFRcr in m L/min/1.73m2 is based the CKD-EPI 2020 equation that does not use a race coefficient. Blood Venous blood specimen / Unknown Venipuncture / Unknown 12/09/2024 8:45 AM EDT 12/09/2024 9:01 AM EDT Virgen Vargas MD LAB BLOOD ORDERABLES Final Re sult [facility] [address] [place] [address] * (ABNORMAL) CBC and differential (12/09/2024 8:45 AM EDT) WBC Count 0.68(LL) 3.70 - 10.30 10*3/uL LAB HEMATOLOGY METHOD 12/09/2024 11:45 AM EDT [facility] RBC Count 2.34(L) 4.60 - 6.10 10*6/uL LAB HEMATOLOGY METHOD 12/09/2024 11:45 AM EDT [facility] HGB 7.5(L) 13.7 - 17.5 g/dL LAB HEMATOLOGY METHOD 12/09/2024 11:45 AM EDT [facility] HCT 20.6(L) 40.0 - 51.0 % LAB HEMATOLOGY METHOD 12/09/2024 11:45 AM EDT [facility] Platelet Count 24(L) 155 - 369 10*3/uL LAB HEMATOLOGY METHOD 12/09/2024 11:45 AM EDT [facility] MCV 88 79 - 98 fL LAB HEMATOLOGY METHOD 12/09/2024 11:45 AM EDT [facility] MCH 32.1(H) 26.0 - 32.0 pg LAB HEMATOLOGY METHOD 12/09/2024 11:45 AM EDT [facility] MCHC 36.4(H) 30.7 - 35.5 g/dL LAB HEMATOLOGY METHOD 12/09/2024 11:45 AM EDT [facility] RDW 17.1(H) 11.5 - 14.5 % LAB HEMATOLOGY METHOD 12/09/2024 11:45 AM EDT [facility] MPV 9.2 8.8 - 12.5 fL LAB HEMATOLOGY METHOD 12/09/2024 11:45 AM EDT [facility] nRBC 2.9(H) <=0.0 per 100 WBCs LAB HEMATOLOGY METHOD 12/09/2024 11:45 AM EDT [facility] Differential Type Manual LAB HEMATOLOGY METHOD 12/09/2024 11:45 AM EDT [facility] Blood Venous blood specimen / Unknown Venipuncture / Unknown 12/09/2024 8:45 AM EDT 12/09/2024 8:56 AM EDT Narrative [facility] - 12/09/2024 11:45 AM EDT Therapeutic decision making should be based on absolute values, rather than percentages. The previously reported component Neutrophils % is no longer being reported.The previously reported component Lymphocytes % is no longer being reported.The previously reported component Monocytes % is no longer being reported.The previously reported component Eosinophils % is no longer being reported.The previously reported component Basophils % is no longer being reported.The previously reported component Immature Granulocytes % is no longer being reported.The previously reported component Absolute Neutrophils is no longer being reported.The previously reported component Absolute Lymphocytes is no longer being reported.The previously reported component Absolute Monocytes is no longer being reported.The previously reported component Absolute Eosinophils is no longer being reported.The previously reported component Absolute Basophils is no longer being reported.The previously reported component Absolute Immature Granulocytes is no longer being reported. us Virgen Vargas MD LAB BLOOD ORDERABLES Final Re sult [facility] [address] [place] [address] * IR Port Placement 5+ Years (12/01/2024 11:43 AM EDT) Anatomical Region Laterality Modality X-Ray Angiograph y Impressions 12/02/2024 7:02 AM EDT Successful placement of subcutaneous chest port; line is ready for use. Tip is at cavoatrial junction. PLAN: Postprocedural monitoring for 30 minutes Follow-up in VIR clinic in 1 week Line is ready for use. CRITICAL RESULT: No. COMMUNICATION: Per this written report. Preliminary report signed by Иван Hernandez MD on 12/01/2024 12:52 PM By electronically signing this report, I, the attending physician, attest that I was present for the entire procedure(s) and agree with the final edited report. Drafted by Иван Hernandez MD on 12/01/2024 12:45 PM Final report signed by Mckinley Lee MD on 12/02/2024 7:02 AM Narrative 12/02/2024 7:02 AM EDT CLINICAL INDICATION: 69M here for port placement. New AML, starting chemotherapy. Business Excellence Manager: Mckinley Lee MD Secondary Post Closing Specialist: Dr. David Holt Rad Dose: 6 mGy Fluoroscopy Time: 0.5 minutes Medications: IV conscious sedation with continuous physiologic monitoring provided by a qualified healthcare professional using Versed 1 mg IV and Fentanyl 50 mcg IV. 1% Lidocaine SQ. Antibiotics: Ancef 1 g IV Blood products: 1 unit of irradiated leukoreduced platelets Duration of Conscious Sedation: Time out: 11:12 AM close out: 11:41 AM Procedure: After discussion of risks and benefits, informed written consent was obtained. Appropriate time out was done to confirm patient identity and planned procedure. The patient was placed supine on the fluoro table. Client Services Analyst ultrasonography revealed the vein to be compressible and patent. An electronic image thereof has been stored in PACS. Strict hand hygiene protocol was observed with the operators doing a surgical hand scrub. All personnel in the room were attired in surgical hat and mask. The operators were in surgical hat, mask, sterile gloves and gowns. The site was prepped with 2% chlorhexidine for cutaneous antisepsis, followed by sterile barrier draping. Conscious sedation was initiated. Local anesthetic was administered. The right internal jugular vein was visualized with US and punctured with a 21 gauge Micropuncture needle under guidance. The visualized portion of the vein was normal. A 0.018 soft tipped wire was then placed into the right IJ and advanced into the SVC under fluoroscopic guidance. Over the wire a 4Fr Micropuncture sheath was placed. A subcutaneous pocket was then created in the soft tissues of the chest several centimeters caudal to the clavicle. Lidocaine was then used to anesthetize a tract from the pocket to the puncture site at the base of the neck. A blunt tunneling device was then used to pass the port tubing from the pocket to the access site. The pocket was irrigated with antibiotic laced saline, and the port placed. Through the 4Fr sheath a 0.035 guidewire was advanced into the IVC under fluoroscopic guidance, the tract sequentially dilated, and finally over the wire a peel away sheath was placed, and the wire removed. While the patient maintained positive thoracic pressure, the tubing was passed into the SVC and the peel away removed. Tip position was recorded with a single digital spot image. The port was aspirated, flushed with saline, and then packed with heparinized saline at a concentration of 100 units/mL, in an amount appropriate for the port and tubing volume. The subcutaneous tissues overlying the port were closed with interrupted 3-0 Vicryl. Dermabond was then applied to the incisions.The patient tolerated the procedure well with no evidence of complication. Device: 6 [place] port catheter cut to length of 25 cm. COMPARISON: None. FINDINGS: Patent R IJV COMPLICATION: No. Procedure Note Mckinley Lee MD - 12/02/2024 CLINICAL INDICATION: 69M here for port placement. New AML, starting chemotherapy. Business Excellence Manager: Mckinley Lee MD Secondary Post Closing Specialist: Dr. David Holt Rad Dose: 6 mGy Fluoroscopy Time: 0.5 minutes Medications: IV conscious sedation with continuous physiologic monitoringprovided by a qualified healthcare professional using Versed 1 mg IV andFentanyl 50 mcg IV. 1% Lidocaine SQ. Antibiotics: Ancef 1 g IV Blood products: 1 unit of irradiated leukoreduced platelets Duration of Conscious Sedation: Time out: 11:12 AM close out: 11:41 AM Procedure: After discussion of risks and benefits, informed written consent wasobtained. Appropriate time out was done to confirm patient identity andplanned procedure. The patient was placed supine on the fluoro table.Client Services Analyst ultrasonography revealed the vein to be compressible and patent. Anelectronic image thereof has been stored in PACS. Strict hand hygiene protocol was observed with the operators doing asurgical hand scrub. All personnel in the room were attired in surgicalhat and mask. The operators were in surgical hat, mask, sterile gloves andgowns. The site was prepped with 2% chlorhexidine for cutaneousantisepsis, followed by sterile barrier draping. Conscious sedation was initiated. Local anesthetic was administered. Theright internal jugular vein was visualized with US and punctured with a 21gauge Micropuncture needle under guidance. The visualized portion of thevein was normal. A 0.018 soft tipped wire was then placed into the rightIJ and advanced into the SVC under fluoroscopic guidance. Over the wire a4Fr Micropuncture sheath was placed. A subcutaneous pocket was thencreated in the soft tissues of the chest several centimeters caudal to theclavicle. Lidocaine was then used to anesthetize a tract from the pocketto the puncture site at the base of the neck. A blunt tunneling devicewas then used to pass the port tubing from the pocket to the access site.The pocket was irrigated with antibiotic laced saline, and the portplaced. Through the 4Fr sheath a 0.035 guidewire was advanced into the IVCunder fluoroscopic guidance, the tract sequentially dilated, and finallyover the wire a peel away sheath was placed, and the wire removed. While the patient maintained positive thoracicpressure, the tubing was passed into the SVC and the peel away removed.Tip position was recorded with a single digital spot image. The port wasaspirated, flushed with saline, and then packed with heparinized saline luci concentration of 100 units/mL, in an amount appropriate for the port andtubing volume. The subcutaneous tissues overlying the port were closedwith interrupted 3-0 Vicryl. Dermabond was then applied to theincisions.The patient tolerated the procedure well with no evidence ofcomplication. Device: 6 [place] port catheter cut to length of 25 cm. COMPARISON: None. FINDINGS: Patent R IJV COMPLICATION: No. IMPRESSION: Successful placement of subcutaneous chest port; line is ready for use.Tip is at cavoatrial junction. PLAN: Postprocedural monitoring for 30 minutes Follow-up in [facility] clinic in 1 week Line is ready for use. CRITICAL RESULT: No. COMMUNICATION: Per this written report. Preliminary report signed by Иван Hernandez MD on 12/01/2024 12:52PM By electronically signing this report, I, the attending physician, attestthat I was present for the entire procedure(s) and agree with the finaledited report. Drafted by Иван Hernandez MD on 12/01/2024 12:45 PM Final report signed by Mckinley Lee MD on 12/02/2024 7:02 AM Isaura Wynn INTENSIVIST IMG IR PROCEDURES Final Result * (ABNORMAL) CBC and differential (11/20/2024 1:49 PM EDT) WBC Count 0.83(LL) 3.70 - 10.30 10*3/uL LAB HEMATOLOGY METHOD 11/20/2024 5:06 PM EDT [facility] RBC Count 2.13(L) 4.60 - 6.10 10*6/uL LAB HEMATOLOGY METHOD 11/20/2024 5:06 PM EDT [facility] HGB 7.5(L) 13.7 - 17.5 g/dL LAB HEMATOLOGY METHOD 11/20/2024 5:06 PM EDT [facility] HCT 20.4(L) 40.0 - 51.0 % LAB HEMATOLOGY METHOD 11/20/2024 5:06 PM EDT [facility] Platelet Count 10(LL) 155 - 369 10*3/uL LAB HEMATOLOGY METHOD 11/20/2024 5:06 PM EDT [facility] MCV 96 79 - 98 fL LAB HEMATOLOGY METHOD 11/20/2024 5:06 PM EDT [facility] MCH 35.2(H) 26.0 - 32.0 pg LAB HEMATOLOGY METHOD 11/20/2024 5:06 PM EDT [facility] MCHC 36.8(H) 30.7 - 35.5 g/dL LAB HEMATOLOGY METHOD 11/20/2024 5:06 PM EDT [facility] RDW 19.7(H) 11.5 - 14.5 % LAB HEMATOLOGY METHOD 11/20/2024 5:06 PM EDT [facility] MPV LAB HEMATOLOGY METHOD 11/20/2024 5:06 PM EDT [facility] Comment:Not Measured nRBC 2.4(H) <=0.0 per 100 WBCs LAB HEMATOLOGY METHOD 11/20/2024 5:06 PM EDT [facility] Blood Venous blood specimen / Unknown Venipuncture / Unknown 11/20/2024 1:49 PM EDT 11/20/2024 1:51 PM EDT Narrative [facility] - 11/20/2024 5:06 PM EDT Therapeutic decision making should be based on absolute values, rather than percentages. The previously reported component Neutrophils % is no longer being reported.The previously reported component Lymphocytes % is no longer being reported.The previously reported component Monocytes % is no longer being reported.The previously reported component Eosinophils % is no longer being reported.The previously reported component Basophils % is no longer being reported.The previously reported component Immature Granulocytes % is no longer being reported.The previously reported component Absolute Neutrophils is no longer being reported.The previously reported component Absolute Lymphocytes is no longer being reported.The previously reported component Absolute Monocytes is no longer being reported.The previously reported component Absolute Eosinophils is no longer being reported.The previously reported component Absolute Basophils is no longer being reported.The previously reported component Absolute Immature Granulocytes is no longer being reported. Virgen Vargas MD LAB BLOOD ORDERABLES Final Re sult [facility] [address] [place] [address] [facility] [address] [place] [address] * Type and screen (11/18/2024 12:21 PM EDT) ABO/Rh O Negative 11/18/2024 12:20 PM EDT BLOOD BANK Antibody Screen Negative 11/18/2024 12:20 PM EDT BLOOD BANK Specimen Expiration 11/21/2024 23:59 11/18/2024 12:20 PM EDT BLOOD BANK Blood Venous blood specimen / Unknown Venipuncture / Unknown 11/18/2024 12:21 PM EDT 11/18/2024 12:28 PM EDT Isaura Wynn APRN LAB BLOOD BANK TEST ORDERABLES Final Result BLOOD BANK [address] [place] [address], * (ABNORMAL) CBC and Differential (11/18/2024 10:00 AM EDT) WBC Count 0.78(LL) 3.70 - 10.30 10*3/uL LAB HEMATOLOGY METHOD 11/18/2024 12:28 PM EDT [facility] RBC Count 2.01(L) 4.60 - 6.10 10*6/uL LAB HEMATOLOGY METHOD 11/18/2024 12:28 PM EDT [facility] HGB 7.2(L) 13.7 - 17.5 g/dL LAB HEMATOLOGY METHOD 11/18/2024 12:28 PM EDT [facility] HCT 19.9(L) 40.0 - 51.0 % LAB HEMATOLOGY METHOD 11/18/2024 12:28 PM EDT [facility] Platelet Count 5(LL) 155 - 369 10*3/uL LAB HEMATOLOGY METHOD 11/18/2024 12:28 PM EDT [facility] MCV 99(H) 79 - 98 fL LAB HEMATOLOGY METHOD 11/18/2024 12:28 PM EDT [facility] MCH 35.8(H) 26.0 - 32.0 pg LAB HEMATOLOGY METHOD 11/18/2024 12:28 PM EDT [facility] MCHC 36.2(H) 30.7 - 35.5 g/dL LAB HEMATOLOGY METHOD 11/18/2024 12:28 PM EDT [facility] RDW 20.6(H) 11.5 - 14.5 % LAB HEMATOLOGY METHOD 11/18/2024 12:28 PM EDT [facility] MPV LAB HEMATOLOGY METHOD 11/18/2024 12:28 PM EDT [facility] Comment:Not Measured nRBC 6.4(H) <=0.0 per 100 WBCs LAB HEMATOLOGY METHOD 11/18/2024 12:28 PM EDT [facility] Differential Type Automated LAB HEMATOLOGY METHOD 11/18/2024 12:28 PM EDT [facility] Neutrophils % 12 % LAB HEMATOLOGY METHOD 11/18/2024 12:28 PM EDT [facility] Lymphocytes % 80 % LAB HEMATOLOGY METHOD 11/18/2024 12:28 PM EDT [facility] Monocytes % 8 % LAB HEMATOLOGY METHOD 11/18/2024 12:28 PM EDT [facility] Eosinophils % 0 % LAB HEMATOLOGY METHOD 11/18/2024 12:28 PM EDT [facility] Basophils % 0 % LAB HEMATOLOGY METHOD 11/18/2024 12:28 PM EDT [facility] Immature Granulocytes % 0 % LAB HEMATOLOGY METHOD 11/18/2024 12:28 PM EDT [facility] Neutrophils Absolute 0.09(LL) 1.60 - 6.10 10*3/uL LAB HEMATOLOGY METHOD 11/18/2024 12:28 PM EDT [facility] Lymphocytes Absolute 0.63(L) 1.20 - 3.90 10*3/uL LAB HEMATOLOGY METHOD 11/18/2024 12:28 PM EDT [facility] Monocytes Absolute 0.06(L) 0.30 - 0.90 10*3/uL LAB HEMATOLOGY METHOD 11/18/2024 12:28 PM EDT [facility] Eosinophils Absolute 0.00 0.00 - 0.50 10*3/uL LAB HEMATOLOGY METHOD 11/18/2024 12:28 PM EDT [facility] Basophils Absolute 0.00 0.00 - 0.10 10*3/uL LAB HEMATOLOGY METHOD 11/18/2024 12:28 PM EDT [facility] Immature Granulocytes Absolute 0.00 0.00 - 0.06 10*3/uL LAB HEMATOLOGY METHOD 11/18/2024 12:28 PM EDT [facility] Blood Venous blood specimen / Unknown Venipuncture / Unknown 11/18/2024 10:00 AM EDT 11/18/2024 10:14 AM EDT Narrative [facility] - 11/18/2024 12:28 PM EDT Therapeutic decision making should be based on absolute values, rather than percentages. us Virgen Vargas MD LAB BLOOD ORDERABLES Final Re sult [facility] [address] [place] [address] * (ABNORMAL) Comprehensive Metabolic Panel, Plasma (11/18/2024 10:00 AM EDT) [facility] Glucose, Plasma 105(H) 74 - 99 mg/dL 11/18/2024 10:44 AM EDT [facility] BUN, Plasma 12 8 - 23 mg/dL 11/18/2024 10:44 AM EDT [facility] Creatinine, Plasma 1.02 0.70 - 1.20 mg/dL 11/18/2024 10:44 AM EDT [facility] BUN/Creatinine Ratio 12 11/18/2024 10:44 AM EDT [facility] Sodium, Plasma 139 136 - 145 mmol/L 11/18/2024 10:44 AM EDT [facility] Potassium, Plasma 4.2 3.6 - 4.9 mmol/L 11/18/2024 10:44 AM EDT [facility] Chloride, Plasma 109(H) 97 - 107 mmol/L 11/18/2024 10:44 AM EDT [facility] CO2, Plasma 21(L) 22 - 29 mmol/L 11/18/2024 10:44 AM EDT [facility] Anion Gap 9 6 - 16 mmol/L 11/18/2024 10:44 AM EDT [facility] Total Calcium, Plasma 8.9 8.9 - 10.2 mg/dL 11/18/2024 10:44 AM EDT [facility] Total Protein 6.8 6.3 - 7.9 g/dL 11/18/2024 10:44 AM EDT [facility] Albumin, Plasma 3.9 3.5 - 5.2 g/dL 11/18/2024 10:44 AM EDT [facility] AST, Plasma 103(H) 10 - 50 U/L 11/18/2024 10:44 AM EDT [facility] ALT, Plasma 94(H) 10 - 50 U/L 11/18/2024 10:44 AM EDT [facility] Alkaline Phosphatase, Plasma 94 40 - 115 U/L 11/18/2024 10:44 AM EDT [facility] Total Bilirubin, Plasma 0.6 0.2 - 1.1 mg/dL 11/18/2024 10:44 AM EDT [facility] eGFRcr 79.6 mL/min/1.7 3m*2 11/18/2024 10:44 AM EDT [facility] Comment:Reported eGFRcr in m L/min/1.73m2 is based the CKD-EPI 2020 equation that does not use a race coefficient. Blood Venous blood specimen / Unknown Venipuncture / Unknown 11/18/2024 10:00 AM EDT 11/18/2024 10:13 AM EDT us Virgen Vargas MD LAB BLOOD ORDERABLES Final Re sult [facility] [address] [place] [address] documented in this encounter Visit Diagnoses Diagnosis Myelodysplasia (myelodysplastic syndrome) (CMS/HCC)- Primary Myelodysplastic syndrome, unspecified Thrombocytopenia (CMS/HCC)- Primary Unspecified thrombocytopenia Myelodysplasia (myelodysplastic syndrome) (CMS/HCC) Myelodysplastic syndrome, unspecified documented in this encounter Additional Health Concerns Assessment Noted Time PHQ-9 Depression Total Score: 0 09/11/19 25 9:15 AM EST A fall risk assessment has been complete d for the patient 11/18/2024 12:27 PM EDT A Body Mass Index follow-up plan has been documented for the patient 11/10/2024 1:06 PM EDT documented as of this encounter Care Teams Lithographic Etcher Relationship Specialty Start Date End Date Zhao Harris MD [address] [place] [address] PCP - General 12/03/20 documented as of this encounter
--- OUTSIDE RECORDS SUMMARY | 2024-11-18 12:25 | XMS_ITS | Encounter Summary ---
Author Organization [facility] Address [address] [place] [address] Care Team Providers Care Guide Travel Name Role Phone Zhao Harris MD Primary Care Provider + [phone] Reason for Visit * Episode Based Medications (Routine) - Authorized Specialty Diagnoses / Procedures Referred By Justice mcgee Referred To Contact Diagnoses Myelodysplasia (myelodysplastic syndrome) (CMS/HCC) Procedures Azacitidine Daily x 7 / Venetoclax Every 28 Days Virgen Vargas MD [address] [address] Phone: tel: fax: Virgen Vargas MD [address] [address] Phone: tel: fax: Referral ID Status Reason Start Date Expiration Date V isits Requested Visits Authorized [id number] Authorized 10/20/2024 04/21/2026 1 91 Encounter Details Date Type Department Care Team (Latest Contact Info) Description 11/18/2024 12:25 PM EDT - 11/18/2024 11:59 PM EDT Hospital Encounter [facility] Infusion Clinic 1 [address] [place] [phone] Myelodysplasia (myelodysplastic syndrome) (CMS/HCC) (Primary Dx); Thrombocytopenia [...] drink first t manav in the morning (EYE-LEAD RADIOLOGIC TECHNOLOGIST) to steady your nerves or to get [...] 5 MG tabletIndications :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 30 tablet 3 10/23/2024 HYDROcodone-aceta minophen ([place]) 5-325 MG tablet Take 1 tablet by mouth every 6 hours as needed. 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 pectoris, unspecified vessel [...] PAV Hematology/BMT and Cellular Therapy Program [address] [place] [address] 01/06/2025 9:00 AM EDT Procedure Visit P[facility] CC Hematology/BMT and Cellular Therapy Program [address] [phone] Kierra Novak, LAMP CLEANER STREET LIGHT 800 [facility] [address] [place] [phone] 01/13/2025 9:30 AM EDT Clinical Support [facility] CC Hematology/BMT and Cellular Therapy Program [address] [phone] 01/13/2025 10:00 AM EDT Office Visit [facility] CC Hematology/BMT and Cellular Therapy Program [address] [phone] Isaura Wynn, LAMP CLE[employer]RE[address] LIGHT 800 [facility] [address] [place] [phone] 01/13/2025 11:30 AM EDT Appointment [facility] H Infusion [address] [place] [phone] 01/14/2025 2:00 PM EDT Appointment [facility] H Infusion [address] [place] [address] 01/15/2025 2:00 PM EDT Appointment [facility] H Infusion [address] [place] [address] 01/16/2025 2:00 PM EDT Appointment [facility] H Infusion [address] [place] [address] 01/17/2025 2:00 PM EDT Appointment [facility] H Infusion [address] [place] [address] 01/18/2025 2:00 PM EDT Appointment [facility] H Infusion [address] [place] [address] 01/19/2025 2:00 PM EDT Appointment [facility] H Infusion [address] [place] [phone] 03/10/2025 11:20 AM EDT Office Visit Pav CC Head, Neck & Respiratory 800 [facility], [address] [place] [address] Elsa Razo, LAMP CLE[employer] LIGHT [address] [place] [address] documented as of this encounter Procedures Procedure [...] LAB HEMATOLOGY METHOD 11/18/2024 2:03 PM EDT [facility] Blood Venous blood specimen / Unknown Venipuncture / Unknown 11/18/2024 1:59 PM EDT 11/18/2024 2:01 PM EDT Virgen Vargas MD LAB BLOOD ORDERABLES Final Re sult [facility] [address] [place] [address] * Transfuse platelets (11/18/2024 1:48 PM EDT) [...] ORDERAB LES Final Result Performing Organization Address [facility] Co de Phone Number BLOOD BANK [address] * Prepare Leukocyte Reduced Platelets: 1 Units (11/18/2024 12:33 PM EDT) Product Code [id number] BLOO D BANK Dispense Status Transfused BLOOD BANK Blood Expiration Date [id number] BLOOD BANK Unit Number [id number] CH B LOOD BANK Product Blood Type 7300 BLOOD BANK Blood Type B+ BLOOD BANK Blood Venous blood specimen / Unknown Kayli CHIU BLOOD BANK PRODUCT ORDER VIKAS Final Result Performing Organization Address [facility] Co de Phone Number BLOOD BANK [address] * Prepare Leukocyte Reduced RBC: 1 Units, Irradiated (11/18/2024 12:33 PM EDT) Product Code [id number] BLOO D BANK Dispense Status Transfused BLOOD BANK Blood Expiration Date [id number] BLOOD BANK Unit Number [id number] CH B LOOD BANK Product Blood Type 9500 BLOOD BANK Blood Type O- BLOOD BANK Crossmatch Compatible BLOOD BANK Other Kayli CHIU BLOOD BANK PRODUCT ORDER VIKAS Final Result Performing Organization Address [facility] Co de Phone Number BLOOD BANK [address] documented in this encounter Visit Diagnoses [...] Sun11/18/24 at 1300, RoutineIndications:Myelodyspla haim (myelodysplastic syndrome) ([facility]/HCC) Given 11/18/2024 12:48 PM EDT 16 mg [...] documented as of this encounter Care Teams Guide Travel Relationship Specialty Start Date End Date Zhao Harris MD [address] [place] [address] PCP - General 12/03/20 documented as of this encounter
--- OUTSIDE RECORDS SUMMARY | 2024-11-19 14:00 | XMS_ITS | Encounter Summary ---
Author Organization [facility] Address [address] [place] [address] Care Team Providers Care Vacuum Caster Name Role Phone Zhao Harris MD Primary Care Provider + [phone] Reason for Visit * Episode Based Medications (Routine) - Authorized Specialty Diagnoses / Procedures Referred By Justice mcgee Referred To Contact Diagnoses Myelodysplasia (myelodysplastic syndrome) (CMS/HCC) Procedures Azacitidine Daily x 7 / Venetoclax Every 28 Days Virgen Vargas MD [address] [phone] Phone: tel: fax: Virgen Vargas MD [address] [address] Phone: tel: fax: Referral ID Status Reason Start Date Expiration Date V isits Requested Visits Authorized [id number] Authorized 10/20/2024 04/21/2026 1 91 Encounter Details Date Type Department Care Team (Latest Contact Info) Description 11/19/2024 2:00 PM EDT - 11/19/2024 11:59 PM EDT Hospital Encounter [facility] [address] [place] [phone] Myelodysplasia (myelodysplastic syndrome) (CMS/HCC) (Primary Dx) Discharge Disposition: Home or Self Care Social History Tobacco Use Types Packs/Day Years Used Date Smoking Tobacco: Every Day Cigarettes 1.5 15 Started: 1994 Passive Smoke Exposure: Current Smokeless Tobacco: Never Tobacco Cessation:Ready to Q uit: Not Asked; Counseling Given: Not Answered Alcohol Use Standard Drinks/Week Comments Yes 6 [...] drink first t manav in the morning (EYE-HEALTH PROFESSOR) to steady your nerves or to [...] Sign Reading Time Taken Comments Blood Pressure 116/69 11/19/2024 2:00 PM EDT Pulse 73 11/19/2024 2:00 PM EDT Temperature 37.1 C (98.7 F) 11/19/2024 2:00 PM EDT Respiratory Rate 16 11/19/2024 2:00 PM EDT Oxygen Saturation 96% 11/19/2024 2:00 PM EDT Inhaled Oxygen Concentration - - Weight 88.2 kg (194 lb 7.1 oz) 11/19/2024 2:00 P M EDT Height 170.2 cm (5' 7 ) 11/19/2024 2:00 PM EDT Body Mass Index 30.45 11/19/2024 2:00 PM EDT documented in this encounter Medications at Time of Discharge acyclovir (Zovirax) 800 MG tabletIndications :Myelodysplasia (myelodysplastic syndrome) (CMS/HCC) Take 1 tablet (800 mg) by mouth in the morning and 1 tablet (800 mg) before bedtime. 60 tablet 3 10/14/2024 bisoprolol (Zebeta) 5 MG tabletIndications :Coronary artery disease involving [place] heart with angina pectoris, unspecified vessel or [...] constipation. 30 tablet 3 10/23/2024 HYDROcodone-aceta minophen ([place]) 5-325 MG tablet Take 1 tablet by mouth every 6 hours as needed. 11/07/2024 nitroglycerin (Nitrostat) 0.4 MG SL tabletIndications :Coronary artery disease involving [place] heart with angina pectoris, unspecified vessel or lesion type (CMS/HCC) Place 1 tablet (0.4 mg) under the tongue every 5 (five) minutes as needed for chest pain. 10 tablet 11 09/11/2024 aspirin 81 MG chewable tablet Chew 1 tablet (81 mg) 1 (one) time each day. aspirin 81 mg tablet 30 tablet 11 11/29/2023 amLODIPine (Norvasc) 2.5 MG tabletIndications :Coronary artery disease involving [place] heart with angina pectoris, unspecified vessel or [...] encounter Miscellaneous Notes * Addendum Note - Mitali Jung RN - 11/19/2024 2:00 PM EDTEncounter addended by: Mitali Jung RN on: 11/19/2024 2:57 PM Actions taken: Charge Capture section accepted documented in this encounter Plan of Treatment Upcoming Encounters Date Type Department Care Team (Late st Contact Info) Description 01/06/2025 8:30 AM EDT Clinical Support [facility] H[facility]ology/B[facility] and Cellular Therapy Program [address], [address] [place] [place] [address] 01/06/2025 9:00 AM EDT Procedure Visit [facility] Cellular Therapy Program [address] [phone] Kierra Novak, COAT IRONER HAND 800 [facility] [address] [place] [phone] 01/13/2025 9:30 AM EDT Clinical Support [facility] Cellular Therapy [facility] [address] [phone] 01/13/2025 10:00 AM EDT Office Visit [facility] Cellular Therapy [facility] [address] [phone] Isaura Wynn, COAT IRONER HAND 800 [facility] [address] [place] [phone] 01/13/2025 11:30 AM EDT Appointment [facility] [address] [place] [address] 01/14/2025 2:00 PM EDT Appointment [facility] [address] [place] [address] 01/15/2025 2:00 PM EDT Appointment [facility] [address] [place] [address] 01/16/2025 2:00 PM EDT Appointment [facility] [address] [place] [address] 01/17/2025 2:00 PM EDT Appointment [facility] [address] [place] [address] 01/18/2025 2:00 PM EDT Appointment [facility] [address] [place] [address] 01/19/2025 2:00 PM EDT Appointment [facility] [address] [place] [address] 03/10/2025 11:20 AM EDT Office Visit [facility] Ne[facility] Res[facility] 800 [facility], [address]nd [place] [phone] Elsa Razo, COAT IRONER HAND [address] [place] [phone] documented as of this encounter Visit Diagnoses Diagnosis Myelodysplasia (myelodysplastic syndrome) (CMS/HCC)- Primary Myelodysplastic syndrome, unspecified documented in this encounter Administered Medications Inactive [...] Waste Container. Chemotherapy: refer to [id number]., On Sun11/19/24 at 1500, For 1 dose, In 50 mL NSIndications:Myelodysplasia (myelodysplastic syndrome) (CMS/HCC) New Bag 11/19/2024 2:40 PM EDT 150 mg 540 mL/hr ondansetron ODT (Zofran-ODT) disintegrating tablet 16 mg 16 mg, Oral, Once, 1 dose, On Sun11/19/24 at 1430, RoutineIndications:Myelodyspla haim (myelodysplastic syndrome) (CMS/HCC) Given 11/19/2024 2:18 PM EDT 16 mg documented in this encounter Additional Health Concerns Assessment Noted Time PHQ-9 Depression Total Score: 0 09/11/19 9:15 AM EST A fall risk assessment has been complete d for the patient 11/19/2024 2:00 PM EDT A Body Mass Index follow-up plan has been documented for the patient 11/10/2024 1:06 PM EDT documented as of this encounter Care Teams Vacuum Caster Relationship Specialty Start Date End Date Zhao Harris MD [address] [facility] [address] [phone] PCP - General 12/03/20 documented as of this encounter
--- OUTSIDE RECORDS SUMMARY | 2024-11-20 13:36 | XMS_ITS | Encounter Summary ---
Author Organization [facility] Address [address] [place] [address] Care Team Providers Care Member Of [employer] Legislative [employer] Name Role Phone Zhao Harris MD Primary Care Provider + [phone] Reason for Visit * Episode Based Medications (Routine) - Authorized Specialty Diagnoses / Procedures Referred By Justice mcgee Referred To Contact Diagnoses Myelodysplasia (myelodysplastic syndrome) (CMS/HCC) Procedures Azacitidine Daily x 7 / Venetoclax Every 28 Days Virgen Vargas MD [address] [address] Phone: tel: fax: Virgen Vargas MD [address] [address] Phone: tel: fax: Referral ID Status Reason Start Date Expiration Date V isits Requested Visits Authorized [id number] Authorized 10/20/2024 04/21/2026 1 91 Encounter Details Date Type Department Care Team (Latest Contact Info) Description 11/20/2024 1:36 PM EDT - 11/20/2024 2:05 PM EDT Hospital Encounter [facility] Infusion Clinic [address] [place] [id number] Myelodysplasia (myelodysplastic syndrome) (CMS/HCC) (Primary Dx); Thrombocytopenia [...] drink first t manav in the morning (EYE-REPATCHER) to steady your nerves or to get [...] 5 MG tabletIndications :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 30 tablet 3 10/23/2024 HYDROcodone-aceta minophen ([place]) 5-325 MG tablet Take 1 tablet by mouth every 6 hours as needed. 11/07/2024 nitroglycerin (Nitrostat) 0.4 MG SL tabletIndications :Coronary artery disease involving [place] heart with angina pectoris, unspecified vessel or lesion type (CMS/HCC) Place 1 tablet (0.4 mg) under the tongue every 5 (five) minutes as needed for chest pain. 10 tablet 11 09/11/2024 aspirin 81 MG chewable tablet Chew 1 tablet (81 mg) 1 (one) time each day. aspirin 81 mg tablet 30 tablet 11 11/29/2023 amLODIPine (Norvasc) 2.5 MG tabletIndications :Coronary artery disease involving [place] heart with angina pectoris, unspecified vessel or [...] 11/18/2024 5 documented as of this encounter Plan of Treatment Upcoming Encounters Date Type Department Care Team ([facility] st Contact Info) Description 01/06/2025 8:30 AM EDT Clinical Support [facility] Hematology/BMT and Cellular Therapy Program [address] [phone] 01/06/2025 9:00 AM EDT Procedure Visit [facility] Hematology/BMT and Cellular Therapy Program [address] [phone] Kierra Novak, PUBLICITY AGENT 800 [facility] [address] [place] [phone] 01/13/2025 9:30 AM EDT Clinical Support [facility] Hematology/BMT and Cellular Therapy Program 750 [facility], [address] [place] [phone] 01/13/2025 10:00 AM EDT Office Visit [facility] Hematology/BMT and Cellular Therapy Program 750 [facility], [address] [place] [phone] Isaura Wynn, PUBLICITY AGENT 800 [facility] [address] [place] [phone] 01/13/2025 11:30 AM EDT Appointment [facility] [address] [place] [address] 01/14/2025 2:00 PM EDT Appointment [facility] [address] [place] [address] 01/15/2025 2:00 PM EDT Appointment [facility] [address] [place] [address] 01/16/2025 2:00 PM EDT Appointment [facility] [address] [place] [address] 01/17/2025 2:00 PM EDT Appointment [facility] [address] [place] [address] 01/18/2025 2:00 PM EDT Appointment [facility] [address] [place] [address] 01/19/2025 2:00 PM EDT Appointment [facility] [address] [place] [address] 03/10/2025 11:20 AM EDT Office Visit [facility] Res[facility] 800 [facility], [address] [place] [address] Elsa Razo, PUBLICITY AGENT [address] [place] [address] Pending Results Name Type Priority Associated Diagnoses [...] LAB HEMATOLOGY METHOD 11/20/2024 6:40 PM EDT [facility] Blood Venous blood specimen / Unknown Venipuncture / Unknown 11/20/2024 6:15 PM EDT 11/20/2024 6:33 PM EDT Virgen Vargas MD LAB BLOOD ORDERABLES Final Re sult [facility] [address] [place] [address] * Transfuse RBC, Irradiated (11/20/2024 5:04 PM [...] Edited Result - Final BLOOD BANK [address] [place] [address], [place] * Prepare Leukocyte Reduced Platelets: 1 Units (11/20/2024 2:01 PM EDT) Product Code [id number] CH BLOO D BANK Dispense Status Transfused BLOOD BANK Blood Expiration Date BLOOD BANK Unit Number [id number] CH B LOOD BANK Product Blood Type 8400 BLOOD BANK Blood Type AB+ BLOOD BANK Blood Venous blood specimen / Unknown Kayli CHIU BLOOD BANK PRODUCT ORDER VIKAS Final Result BLOOD BANK [address] [place] [address], [place] * Prepare Leukocyte Reduced RBC: 1 Units, Irradiated (11/20/2024 2:01 PM EDT) Product Code [id number] CH BLOO D BANK Dispense Status Transfused BLOOD BANK Blood Expiration Date BLOOD BANK Unit Number [id number] CH B LOOD BANK Product Blood Type 9500 BLOOD BANK Blood Type O- CH BLOOD BANK Crossmatch Compatible BLOOD BANK Other Kayli CHIU BLOOD BANK PRODUCT ORDER VIKAS Final Result Performing Organization Address City/[facility]/ZIP Co de Phone Number BLOOD BANK [address] [place] [address], * Morphology (11/20/2024 1:49 PM EDT) Acanthocytes Present 11/20/2024 5:05 PM EDT [facility] Echinocytes Present 11/20/2024 5:05 PM EDT [facility] RBC Morphology Slide Reviewed 2024 5:05 PM EDT [facility] Platelet Estimate Platelet smear estimate consistent with automated count 11/20/2024 5:05 PM EDT [facility] Blood Venous blood specimen / Unknown Venipuncture / Unknown 11/20/2024 1:49 PM EDT 11/20/2024 1:51 PM EDT us Virgen Vargas MD LAB BLOOD ORDERABLES Final Re sult Performing Organization Address City/[facility]/ZIP Co de Phone Number [facility] [address] [place] [address] * (ABNORMAL) Manual Differential (11/20/2024 1:49 PM EDT) Blasts % 0 % 11/20/2024 5:04 PM EDT [facility] Promyelocytes % 0 % 5:04 PM EDT [facility] Myelocytes % 0 % 11/20/2024 5:04 PM EDT [facility] Metamyelocytes % 0 % 11/21/19 5:04 PM EDT [facility] Neutrophils % 15 % 11/20/2024 5:04 PM EDT [facility] Lymphocytes % 79 % 11/20/2024 5:04 PM EDT [facility] Reactive Lymphocytes % 2 % 11/20/2024 5:04 PM EDT [facility] Monocytes % 4 % 11/20/2024 5:04 PM EDT [facility] Eosinophils % 0 % 11/20/2024 5:04 PM EDT [facility] Basophils % 0 % 11/20/2024 5:04 PM EDT [facility] Blasts Absolute 0.00 10*3/UL 5:04 PM EDT [facility] Promyelocytes Absolute 0.00 10*3/uL 11/20/2024 5:04 PM EDT [facility] Myelocytes Absolute 0.00 10*3/uL 11/20/2024 5:04 PM EDT [facility] Metamyelocytes Absolute 0.00 10*3/uL 11/20/2024 5:04 PM EDT [facility] Neutrophils Absolute 0.12(LL) 1.60 - 6.10 10*3/uL 11/20/2024 5:04 PM EDT [facility] Lymphocytes Absolute 0.66(L) 1.20 - 3.90 10*3/uL 11/20/2024 5:04 PM EDT [facility] Reactive Lymphocytes Absolute 0.02 10*3/uL 11/20/2024 5:04 PM EDT [facility] Monocytes Absolute 0.03(L) 0.30 - 0.90 10*3/uL 11/20/2024 5:04 PM EDT [facility] Eosinophils Absolute 0.00 0.00 - 0.50 10*3/uL 11/20/2024 5:04 PM EDT [facility] Basophils Absolute 0.00 0.00 - 0.10 10*3/uL 11/20/2024 5:04 PM EDT [facility] Blood Venous blood specimen / Unknown Venipuncture / Unknown 11/20/2024 1:49 PM EDT 11/20/2024 1:51 PM EDT us Virgen Vargas MD LAB BLOOD ORDERABLES Final Re sult [facility] [address] [place] [address] * Peripheral blood smear, pathologist interpretation (11/20/2024 1:49 PM EDT) Clinical Diagnosis, Peripheral Smear AML LAB HEMATOLOGY METHOD 11/20/2024 4:27 PM EDT [facility] Interpretation , Peripheral Smear Pancytopenia with marked neutropenia and few reactive lymphocytes. A resident was involved in the service. I attest I examined the relevant preparations for the specimens and confirmed the diagnosis or interpretation. 11/20/2024 4:27 PM EDT [facility] Pathologist Signature, Peripheral Smear 11/20/2024 4:27 PM EDT [facility] Comment:Reviewed by: Martha Lopez MD LAB CP ASR DISCLAIMER Yes 11/20/2024 4:27 PM EDT [facility] Blood Venous blood specimen / Unknown Venipuncture / Unknown 11/20/2024 1:49 PM EDT 11/20/2024 1:51 PM EDT us Virgen Vargas MD LAB PATHOLOGY ORDERABLES Terri lara Result [facility] [address] [place] [address] * (ABNORMAL) Comprehensive Metabolic Panel, Plasma (11/20/2024 1:49 PM EDT) Glucose, Plasma 100(H) 74 - 99 mg/dL 11/20/2024 2:45 PM EDT [facility] BUN, Plasma 11 8 - 23 mg/dL 11/20/2024 2:45 PM EDT [facility] Creatinine, Plasma 1.01 0.70 - 1.20 mg/dL 11/20/2024 2:45 PM EDT [facility] BUN/Creatinine Ratio 11 11/20/2024 2:45 PM EDT [facility] Sodium, Plasma 135(L) 136 - 145 mmol/L 11/20/2024 2:45 PM EDT [facility] Potassium, Plasma 4.1 3.6 - 4.9 mmol/L 11/20/2024 2:45 PM EDT [facility] Chloride, Plasma 106 97 - 107 mmol/L 11/20/2024 2:45 PM EDT [facility] CO2, Plasma 21(L) 22 - 29 mmol/L 11/20/2024 2:45 PM EDT [facility] Anion Gap 8 6 - 16 mmol/L 11/20/2024 2:45 PM EDT [facility] Total Calcium, Plasma 9.1 8.9 - 10.2 mg/dL 11/20/2024 2:45 PM EDT [facility] Total Protein 6.7 6.3 - 7.9 g/dL 11/20/2024 2:45 PM EDT [facility] Albumin, Plasma 3.9 3.5 - 5.2 g/dL 11/20/2024 2:45 PM EDT [facility] AST, Plasma 26 10 - 50 U/L 11/20/2024 2:45 PM EDT [facility] ALT, Plasma 43 10 - 50 U/L 11/20/2024 2:45 PM EDT [facility] Alkaline Phosphatase, Plasma 71 40 - 115 U/L 11/20/2024 2:45 PM EDT [facility] Total Bilirubin, Plasma 0.7 0.2 - 1.1 mg/dL 11/20/2024 2:45 PM EDT [facility] eGFRcr 80.5 mL/min/1.7 3m*2 11/20/2024 2:45 PM EDT [facility] Comment:Reported eGFRcr in m L/min/1.73m2 is based the CKD-EPI 2020 equation that does not use a race coefficient. Blood Venous blood specimen / Unknown Venipuncture / Unknown 11/20/2024 1:49 PM EDT 11/20/2024 2:13 PM EDT us Virgen Vargas MD LAB BLOOD ORDERABLES Final Re sult [facility] [address] [place] [address] * (ABNORMAL) CBC and differential (11/20/2024 1:49 PM EDT) WBC Count 0.83(LL) 3.70 - 10.30 10*3/uL LAB HEMATOLOGY METHOD 11/20/2024 5:06 PM EDT [facility] RBC Count 2.13(L) 4.60 - 6.10 10*6/uL LAB HEMATOLOGY METHOD 11/20/2024 5:06 PM EDT [facility] HGB 7.5(L) 13.7 - 17.5 g/dL LAB HEMATOLOGY METHOD 11/20/2024 5:06 PM EDT [facility] HCT 20.4(L) 40.0 - 51.0 % LAB HEMATOLOGY METHOD 11/20/2024 5:06 PM EDT [facility] Platelet Count 10(LL) 155 - 369 10*3/uL LAB HEMATOLOGY METHOD 11/20/2024 5:06 PM EDT [facility] MCV 96 79 - 98 fL LAB HEMATOLOGY METHOD 11/20/2024 5:06 PM EDT [facility] MCH 35.2(H) 26.0 - 32.0 pg LAB HEMATOLOGY METHOD 11/20/2024 5:06 PM EDT [facility] MCHC 36.8(H) 30.7 - 35.5 g/dL LAB HEMATOLOGY METHOD 11/20/2024 5:06 PM EDT [facility] RDW 19.7(H) 11.5 - 14.5 % LAB HEMATOLOGY METHOD 11/20/2024 5:06 PM EDT [facility] MPV LAB HEMATOLOGY METHOD 11/20/2024 5:06 PM EDT [facility] Comment:Not Measured nRBC 2.4(H) <=0.0 per 100 WBCs LAB HEMATOLOGY METHOD 11/20/2024 5:06 PM EDT [facility] Blood Venous blood specimen / Unknown Venipuncture / Unknown 11/20/2024 1:49 PM EDT 11/20/2024 1:51 PM EDT [facility] - 11/20/2024 5:06 PM EDT Therapeutic [...] MD LAB BLOOD ORDERABLES Final Re sult [facility] [address] [place] [address] [facility] [address] [place] [address] documented in this encounter Visit Diagnoses Diagnosis [...] documented as of this encounter Care Teams Member Of The [employer] Relationship Specialty Start Date End Date Zhao Harris MD [address] [facility] [address] [address] PCP - General 12/03/20 documented as of this encounter
--- OUTSIDE RECORDS SUMMARY | 2024-11-20 14:06 | XMS_ITS | Encounter Summary ---
Author Organization [facility] Address [address] [place] [address] Care Team Providers Care Housekeeping Worker Name Role Phone Zhao Harris MD Primary Care Provider [phone] Encounter Details Date Type Department Care Team (Latest Contact Info) Description 11/20/2024 2:06 PM EDT - 11/20/2024 11:59 PM EDT Hospital Encounter [facility] Infusion Clinic [address] [place] [phone] Myelodysplasia (myelodysplastic syndrome) (CMS/HCC) (Primary Dx) Discharge [...] drink first t manav in the morning (EYE-GROUP ART SUPERVISOR) to steady your nerves or to [...] constipation. 30 tablet 3 10/23/2024 HYDROcodone-aceta minophen ([place]) 5-325 MG tablet Take 1 tablet by [...] crush or chew. 30 tablet 11 10/03/2024 5 nicotine (Nicoderm CQ) 21 MG/24HR patch Place [...] CC Hematology/BMT and Cellular Therapy Program [address] [place] [phone] 01/06/2025 9:00 AM EDT Procedure Visit [facility] Hematology/BMT and Cellular Therapy Program [address] [phone] Kierra Novak, TERMITE TREATER 800 [facility] [address] [place] [phone] 01/13/2025 9:30 AM EDT Clinical Support [facility] Hematology/BMT and Cellular Therapy Program [address] [phone] 01/13/2025 10:00 AM EDT Office Visit [facility] Hematology/BMT and Cellular Therapy Program [address] [phone] Isaura Wynn, TERMITE TREATER 800 [facility] [address] [place] [phone] 01/13/2025 11:30 AM EDT Appointment [facility] Infusion 800 [place] [address] 01/14/2025 2:00 PM EDT Appointment [facility] Infusion 800 [place] [phone] 01/15/2025 2:00 PM EDT Appointment [facility] Infusion 800 [place] [address] 01/16/2025 2:00 PM EDT Appointment [facility] Infusion 800 [place] [phone] 01/17/2025 2:00 PM EDT Appointment [facility] Infusion [address] [place] [address] 01/18/2025 2:00 PM EDT Appointment [facility] Infusion 800 [place] [phone] 01/19/2025 2:00 PM EDT Appointment [facility] Infusion 800 [place] [address] 03/10/2025 11:20 AM EDT Office Visit Pav CC Head, Neck & Respiratory 800 [facility], 2nd [place] [address] Elsa Razo, TERMITE TREATER 800 [place] [phone] documented as of this encounter Visit Diagnoses [...] documented as of this encounter Care Teams Housekeeping Worker Relationship Specialty Start Date End Date Zhao Harris MD 1210 [facility] [address] [place] [address] PCP - General 12/03/20 documented as of this encounter
--- OUTSIDE RECORDS SUMMARY | 2024-11-21 13:30 | XMS_ITS | Encounter Summary ---
Author Organization [facility] Address [address] [place] [address] Care Team Providers Care Drawing Hand Name Role Phone Zhao Harris MD Primary Care Provider + [phone] Reason for Visit * Episode Based Medications (Routine) - Authorized Specialty Diagnoses / Procedures Referred By Justice mcgee Referred To Contact Diagnoses Myelodysplasia (myelodysplastic syndrome) (CMS/HCC) Procedures Azacitidine Daily x 7 / Venetoclax Every 28 Days Virgen Vargas MD [address] [address] Phone: tel: fax: Virgen Vargas MD [address] [address] Phone: tel: fax: Referral ID Status Reason Start Date Expiration Date V isits Requested Visits Authorized [id number] Authorized 10/20/2024 04/21/2026 1 91 Encounter Details Date Type Department Care Team (Latest Contact Info) Description 11/21/2024 1:30 PM EDT - 11/21/2024 11:59 PM EDT Hospital Encounter [facility] Infusion Clinic 1 [address] [place] [phone] Myelodysplasia (myelodysplastic syndrome) (CMS/HCC) (Primary Dx) Discharge [...] drink first t manav in the morning (EYE-FINANCE PROFESSIONAL) to steady your nerves or to get rid of a hangover? 0 11/03/2024 CAGE Questionnaire Score 0 Sex and Gender Information Value Date Recorded Sex Assigned at Male 05/18/2023 9:35 AM EDT Legal Sex Male 7:29 PM EDT Gender Identity Male 05/18/2023 9:35 AM EDT Sexual Orientation Straight 05/18/2023 9: 35 AM EDT documented as of this encounter Last Filed Vital Signs Vital Sign Reading Time Taken Comments Blood Pressure 118/70 11/21/2024 1:42 PM EDT Pulse 68 11/21/2024 1:42 PM EDT Temperature 37.2 C (99 F) 11/21/2024 1:42 PM EDT Respiratory Rate 17 11/21/2024 1:42 PM EDT Oxygen Saturation 97% 11/21/2024 1:42 PM EDT Inhaled Oxygen Concentration - - Weight 87.6 kg (193 lb 2 oz) 11/21/2024 1:42 PM EDT Height 170.2 cm (5' 7 ) 11/21/2024 1:42 PM EDT Body Mass Index 30.25 11/21/2024 1:42 PM EDT documented in this encounter Medications at Time of Discharge acyclovir (Zovirax) 800 MG tabletIndications :Myelodysplasia (myelodysplastic syndrome) (CMS/HCC) Take 1 tablet (800 mg) by mouth in the morning and 1 tablet (800 mg) before bedtime. 60 tablet 3 10/14/2024 bisoprolol (Zebeta) 5 MG tabletIndications :Coronary artery disease involving citizen [place] heart with angina pectoris, unspecified vessel or [...] constipation. 30 tablet 3 10/23/2024 HYDROcodone-aceta minophen ([place]) 5-325 MG tablet Take 1 tablet by mouth every 6 hours as needed. 11/07/2024 nitroglycerin (Nitrostat) 0.4 MG SL tabletIndications :Coronary artery disease involving citizen [place] heart with angina pectoris, unspecified vessel or [...] 2.5 MG tabletIndications :Coronary artery disease involving citizen [place] heart with angina pectoris, unspecified vessel or [...] Upcoming Encounters Date Type Department Care Team ([facility] st Contact Info) Description 01/06/2025 8:30 AM EDT Clinical Support [facility] Hematology/BMT and Cellular Therapy Program [address] [phone] 01/06/2025 9:00 AM EDT Procedure Visit [facility] Hematology/BMT and Cellular Therapy Program [address] [phone] Kierra Novak, YOKER 800 [facility] [address] [place] [phone] 01/13/2025 9:30 AM EDT Clinical Support [facility] Hematology/BMT and Cellular Therapy Program 750 [facility], [facility] [place] [address] 01/13/2025 10:00 AM EDT Office Visit [facility] CC Hematology/BMT and Cellular Therapy Program [address] [phone] Isaura Wynn, YOKER 800 [facility] [address] [place] [phone] 01/13/2025 11:30 AM EDT Appointment [facility] H Infusion [address] [place] [address] 01/14/2025 2:00 PM EDT Appointment [facility] Infusion [address] [place] [address] 01/15/2025 2:00 PM EDT Appointment [facility] Infusion [address] [place] [address] 01/16/2025 2:00 PM EDT Appointment [facility] Infusion [address] [place] [address] 01/17/2025 2:00 PM EDT Appointment [facility] Infusion [address] [place] [address] 01/18/2025 2:00 PM EDT Appointment [facility] Infusion [address] [place] [address] 01/19/2025 2:00 PM EDT Appointment [facility] Infusion [address] [place] [address] 03/10/2025 11:20 AM EDT Office Visit Pav CC Head, Neck & Respiratory 800 [facility], 2nd [place] [address] Elsa Razo, YOKER [address] [place] [phone] documented as of this encounter Visit Diagnoses [...] Waste Container. Chemotherapy: refer to [id number]., On Sun11/21/24 at 1515, For 1 dose, In 50 mL NSIndications:Myelodysplasia (myelodysplastic syndrome) (CMS/HCC) New Bag 11/21/2024 3:02 PM EDT 150 mg 540 mL/hr ondansetron ODT (Zofran-ODT) disintegrating tablet 16 mg 16 mg, Oral, Once, 1 dose, On Sun11/21/24 at 1445, RoutineIndications:Myelodyspla haim (myelodysplastic syndrome) ([facility]/HCC) Given 11/21/2024 2:32 PM EDT 16 mg documented in this encounter Additional Health Concerns Assessment Noted Time PHQ-9 Depression Total Score: 0 09/11/19 9:15 AM EST A fall risk assessment has been complete d for the patient 11/21/2024 1:33 PM EDT A Body Mass Index follow-up plan has been documented for the patient 11/10/2024 1:06 PM EDT documented as of this encounter Care Teams Drawing Hand Relationship Specialty Start Date End Date hZao Harris MD [address] [place] [address] PCP - General 12/03/20 documented as of this encounter
--- OUTSIDE RECORDS SUMMARY | 2024-11-22 13:59 | XMS_ITS | Encounter Summary ---
Author Organization [facility] Address [address] [place] [address] Care Team Providers Care Senior Sous Chef Name Role Phone Zhao Harris MD Primary Care Provider + [phone] Reason for Visit * Episode Based Medications (Routine) - Authorized Specialty Diagnoses / Procedures Referred By Justice mcgee Referred To Contact Diagnoses Myelodysplasia (myelodysplastic syndrome) (CMS/HCC) Procedures Azacitidine Daily x 7 / Venetoclax Every 28 Days Virgen Vargas MD [address] [address] Phone: tel: fax: Virgen Vargas MD [address] [address] Phone: tel: fax: Referral ID Status Reason Start Date Expiration Date V isits Requested Visits Authorized [id number] Authorized 10/20/2024 04/21/2026 1 91 Encounter Details Date Type Department Care Team (Latest Contact Info) Description 11/22/2024 1:59 PM EDT - 11/22/2024 11:59 PM EDT Hospital Encounter [facility] Infusion Clinic 1 [address] [place] [phone] Myelodysplasia (myelodysplastic syndrome) (CMS/HCC) (Primary Dx); Thrombocytopenia [...] drink first t manav in the morning (EYE-BRAZER CONTROLLED ATMOSPHERIC FURNACE) to steady your nerves or to get [...] 5 MG tabletIndications :Coronary artery disease involving [place] heart with angina pectoris, unspecified vessel or [...] constipation. 30 tablet 3 10/23/2024 HYDROcodone-aceta minophen ([place]) 5-325 MG tablet Take 1 tablet by mouth every 6 hours as needed. 11/07/2024 nitroglycerin (Nitrostat) 0.4 MG SL tabletIndications :Coronary artery disease involving [place] heart with angina pectoris, unspecified vessel or lesion type (CMS/HCC) Place 1 tablet (0.4 mg) under the tongue every 5 (five) minutes as needed for chest pain. 10 tablet 11 09/11/2024 aspirin 81 MG chewable tablet Chew 1 tablet (81 mg) 1 (one) time each day. aspirin 81 mg tablet 30 tablet 11 11/29/2023 amLODIPine (Norvasc) 2.5 MG tabletIndications :Coronary artery disease involving [place] heart with angina pectoris, unspecified vessel or [...] PAV Hematology/BMT and Cellular Therapy Program [address] [place] [address] 01/06/2025 9:00 AM EDT Procedure Visit PAV CC Hematology/BMT and Cellular Therapy Program [address] [phone] Kierra Novak, LANGUAGE ASSISTANT 800 [facility] [address] [place] [phone] 01/13/2025 9:30 AM EDT Clinical Support PAV CC Hematology/BMT and Cellular Therapy Program [address] [phone] 01/13/2025 10:00 AM EDT Office Visit PAV CC Hematology/BMT and Cellular Therapy Program [address] [phone] Isaura Wynn, LANGUAGE ASSISTANT 800 [facility] [address] [place] [phone] 01/13/2025 11:30 AM EDT Appointment PAV H Infusion [address] [place] [phone] 01/14/2025 2:00 PM EDT Appointment PAV H Infusion [address] [place] [address] 01/15/2025 2:00 PM EDT Appointment PAV H Infusion [address] [place] [address] 01/16/2025 2:00 PM EDT Appointment PAV H Infusion [address] [place] [address] 01/17/2025 2:00 PM EDT Appointment PAV H Infusion [address] [place] [address] 01/18/2025 2:00 PM EDT Appointment PAV H Infusion [address] [place] [address] 01/19/2025 2:00 PM EDT Appointment PAV H Infusion [address] [place] [phone] 03/10/2025 11:20 AM EDT Office Visit Pav CC Head, Neck & Respiratory 800 [facility], 2nd [place] [address] Elsa Razo, LANGUAGE ASSISTANT 800 [place] [address] documented as of this encounter Procedures Procedure [...] Platelet count (11/22/2024 4:24 PM EDT) Pathologist [facility] Platelet Count 62(L) 155 - 369 10*3/uL LAB HEMATOLOGY METHOD 11/22/2024 5:13 PM EDT [facility] Blood Venous blood specimen / Unknown Venipuncture / Unknown 11/22/2024 4:24 PM EDT 11/22/2024 5:04 PM EDT Virgen Vargas MD LAB BLOOD ORDERABLES Final Re sult [facility] [address] [place] [address] * Exception to Standard Practice, Pathologist Interpretation (11/22/2024 3:27 PM EDT) Pathologist [facility] Clinical Diagnosis, Exception to Standard Practice thrombocytopenia [...] ORDERAB LES Final Result Performing Organization Address City/[facility]/ZIP Co de Phone Number BLOOD BANK [address] * Prepare Leukocyte Reduced Platelets: 1 Units (11/22/2024 3:18 PM EDT) Product Code [id number] BLOO D BANK Dispense Status Transfused BLOOD BANK Blood Expiration Date [id number] BLOOD BANK Unit Number [id number] B LOOD BANK Product Blood Type 5100 BLOOD BANK Blood Type O+ BLOOD BANK Blood Venous blood specimen / Unknown us Kayli CHIU BLOOD BANK PRODUCT ORDER VIKAS Final Result Performing Organization Address City/[facility]/ZIP Co de Phone Number BLOOD BANK [address] documented in this encounter Visit Diagnoses [...] documented as of this encounter Care Teams Senior Sous Chef Relationship Specialty Start Date End Date Zhao Harris MD [address] [place] [address] PCP - General 12/03/20 documented as of this encounter
--- OUTSIDE RECORDS SUMMARY | 2024-11-23 13:43 | XMS_ITS | Encounter Summary ---
Author Organization [facility] Address [address] [place] [address] Care Team Providers Care Gm Video Name Role Phone Zhao Harris MD Primary Care Provider + [phone] Reason for Visit * Episode Based Medications (Routine) - Authorized Specialty Diagnoses / Procedures Referred By Justice mcgee Referred To Contact Diagnoses Myelodysplasia (myelodysplastic syndrome) (CMS/HCC) Procedures Azacitidine Daily x 7 / Venetoclax Every 28 Days Virgen Vargas MD [address] [address] Phone: tel: fax: Virgen Vargas MD [address] [address] Phone: tel: fax: Referral ID Status Reason Start Date Expiration Date V isits Requested Visits Authorized [id number] Authorized 10/20/2024 04/21/2026 1 91 Encounter Details Date Type Department Care Team (Latest Contact Info) Description 11/23/2024 1:43 PM EDT - 11/23/2024 11:59 PM EDT Hospital Encounter [facility] Infusion Clinic 1 [address] [place] [phone] Myelodysplasia (myelodysplastic syndrome) (CMS/HCC) (Primary Dx) Discharge [...] drink first t manav in the morning (EYE-INTERLIBRARY LOAN SERVICES LIBRARIAN) to steady your nerves or to get [...] Sign Reading Time Taken Comments Blood Pressure 132/70 11/23/2024 1:45 PM EDT Pulse 79 11/23/2024 1:45 PM EDT Temperature 37 C (98.6 F) 11/23/2024 1:45 PM EDT Respiratory Rate 16 11/23/2024 1:45 PM EDT Oxygen Saturation 98% 11/23/2024 1:45 PM EDT Inhaled Oxygen Concentration - - Weight 88.1 kg (194 lb 3.6 oz) 11/23/2024 1:45 P M EDT Height 170.2 cm (5' 7 ) 11/23/2024 1:45 PM EDT Body Mass Index 30.42 11/23/2024 1:45 PM EDT documented in this encounter Medications at Time of Discharge acyclovir (Zovirax) 800 MG tabletIndications :Myelodysplasia (myelodysplastic syndrome) (CMS/HCC) Take 1 tablet (800 mg) by mouth in the morning and 1 tablet (800 mg) before bedtime. 60 tablet 3 10/14/2024 bisoprolol (Zebeta) 5 MG tabletIndications :Coronary artery disease involving seminole heart with angina pectoris, unspecified vessel or [...] constipation. 30 tablet 3 10/23/2024 HYDROcodone-aceta minophen ([place]) 5-325 MG tablet Take 1 tablet by mouth every 6 hours as needed. 11/07/2024 nitroglycerin (Nitrostat) 0.4 MG SL tabletIndications :Coronary artery disease involving seminole heart with angina pectoris, unspecified vessel or lesion type (CMS/HCC) Place 1 tablet (0.4 mg) under the tongue every 5 (five) minutes as needed for chest pain. 10 tablet 11 09/11/2024 aspirin 81 MG chewable tablet Chew 1 tablet (81 mg) 1 (one) time each day. aspirin 81 mg tablet 30 tablet 11 11/29/2023 amLODIPine (Norvasc) 2.5 MG tabletIndications :Coronary artery disease involving seminole heart with angina pectoris, unspecified vessel or [...] Upcoming Encounters Date Type Department Care Team ([facility] st Contact Info) Description 01/06/2025 8:30 AM EDT Clinical Support [facility] Hematology/BMT and Cellular Therapy Program [address] [address] 01/06/2025 9:00 AM EDT Procedure Visit [facility] Hematology/BMT and Cellular Therapy Program [address] [address] Kierra Novak, KNIFE OPERATOR 800 [facility] [address] [place] [phone] 01/13/2025 9:30 AM EDT Clinical Support [facility] Hematology/BMT and Cellular Therapy Program 750 [facility] [place] [address] 01/13/2025 10:00 AM EDT Office Visit [facility] CC Hematology/BMT and Cellular Therapy Program 750 [facility], [address] [place] [phone] Isaura Wynn, KNIFE OPERATOR 800 [facility] [address] [place] [phone] 01/13/2025 11:30 AM EDT Appointment [facility] H Infusion 800 [place] [phone] 01/14/2025 2:00 PM EDT Appointment [facility] H Infusion 800 [place] [address] 01/15/2025 2:00 PM EDT Appointment [facility] H Infusion 800 [place] [address] 01/16/2025 2:00 PM EDT Appointment [facility] H Infusion 800 [place] [address] 01/17/2025 2:00 PM EDT Appointment [facility] H Infusion [address] [place] [address] 01/18/2025 2:00 PM EDT Appointment [facility] H Infusion 800 [place] [address] 01/19/2025 2:00 PM EDT Appointment [facility] H Infusion 800 [place] [address] 03/10/2025 11:20 AM EDT Office Visit [facility] CC Head, Neck & Respiratory 800 [facility], [address]nd [place] [phone] Elsa Razo, KNIFE OPERATOR 800 [place] [address] documented as of this encounter Visit Diagnoses [...] Waste Container. Chemotherapy: refer to [id number]., On 11/23/24 at 1430, For 1 dose, In 50 mL NSIndications:Myelodysplasia (myelodysplastic syndrome) (CMS/HCC) New Bag 11/23/2024 2:16 PM EDT 150 mg 540 mL/hr ondansetron ODT (Zofran-ODT) disintegrating tablet 16 mg 16 mg, Oral, Once, 1 dose, On 11/23/24 at 1400, RoutineIndications:Myelodyspla haim (myelodysplastic syndrome) (CMS/HCC) Given 11/23/2024 1:48 PM EDT 16 mg documented in this encounter Additional Health Concerns Assessment Noted Time PHQ-9 Depression Total Score: 0 09/11/19 25 9:15 AM EST A fall risk assessment has been complete d for the patient 11/23/2024 1:45 PM EDT A Body Mass Index follow-up plan has been documented for the patient 11/23/2024 2:22 PM EDT documented as of this encounter Care Teams Gm Video Relationship Specialty Start Date End Date Zhao Harris MD [address] [place] [address] PCP - General 12/03/20 documented as of this encounter
--- OUTSIDE RECORDS SUMMARY | 2024-11-24 13:59 | XMS_ITS | Encounter Summary ---
Author Organization [facility] Address [address] [place] [address] Care Team Providers Care Comptometer Operator Name Role Phone Zhao Harris MD Primary Care Provider + [phone] Reason for Visit * Episode Based Medications (Routine) - Authorized Specialty Diagnoses / Procedures Referred By Justice mcgee Referred To Contact Diagnoses Myelodysplasia (myelodysplastic syndrome) (CMS/HCC) Procedures Azacitidine Daily x 7 / Venetoclax Every 28 Days Virgen Vargas MD [address] [address] Phone: tel: fax: Virgen Vargas MD [address] [address] Phone: tel: fax: Referral ID Status Reason Start Date Expiration Date V isits Requested Visits Authorized [id number] Authorized 10/20/2024 04/21/2026 1 91 Encounter Details Date Type Department Care Team (Latest Contact Info) Description 11/24/2024 1:59 PM EDT - 11/24/2024 2:29 PM EDT Hospital Encounter [facility] Infusion Clinic 1 [address] [place] [phone] Myelodysplasia (myelodysplastic syndrome) (CMS/HCC) (Primary Dx); Thrombocytopenia [...] drink first t manav in the morning (EYE-COMMERCIAL ELECTRICIAN) to steady your nerves or to get [...] 5 MG tabletIndications :Coronary artery disease involving [place] heart with angina pectoris, unspecified vessel or [...] constipation. 30 tablet 3 10/23/2024 HYDROcodone-aceta minophen ([place]) 5-325 MG tablet Take 1 tablet by mouth every 6 hours as needed. 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 10 tablet 11 09/11/2024 aspirin 81 MG chewable tablet Chew 1 tablet (81 mg) 1 (one) time each day. aspirin 81 mg tablet 30 tablet 11 11/29/2023 amLODIPine (Norvasc) 2.5 MG tabletIndications :Coronary artery disease involving [place] heart with angina pectoris, unspecified vessel or [...] a preserved mata-T cell profile with a CD4:LI5zjkcq of 2.7:1. Polyclonal B-cells (3%) and a [...] counts (WBC 2.3 k/??L, hemoglobin 11.6 g/dL, nkutgyeqf69 k/??L) prompted a bone marrow biopsy on [...] ARAM Higuera HEMATOLOGY/BMT AND CELLULAR THERAPY PROGRAM [address] [place] [phone] SERVICE PAGER [phone]/[employer] CHAT 23 minutes was spent on this [...] daily., Disp: 90 tablet, Rfl: 3 HYDROcodone-acetaminophen ([place]) 5-325 MG tablet, Take 1 tablet by [...] Description 01/06/2025 8:30 AM EDT Clinical Support [facility] Hematology/BMT and Cellular Therapy Program [address] [phone] 01/06/2025 9:00 AM EDT Procedure Visit [facility] Hematology/BMT and Cellular Therapy Program [address] [phone] Kierra Novak, INFECTIOUS DISEASES PHYSICIAN 800 [facility] [address] [place] [phone] 01/13/2025 9:30 AM EDT Clinical Support [facility] Hematology/BMT and Cellular Therapy Program 750 [facility], [address] [place] [phone] 01/13/2025 10:00 AM EDT Office Visit [facility] Hematology/BMT and Cellular Therapy Program 750 [facility], [address] [place] [phone] Isaura Wynn, INFECTIOUS DISEASES PHYSICIAN 800 [facility] [address] [place] [phone] 01/13/2025 11:30 AM EDT Appointment [facility] [address] [place] [address] 01/14/2025 2:00 PM EDT Appointment [facility] [address] [place] [address] 01/15/2025 2:00 PM EDT Appointment [facility] [address] [place] [address] 01/16/2025 2:00 PM EDT Appointment [facility] [address] [place] [address] 01/17/2025 2:00 PM EDT Appointment [facility] [address] [place] [address] 01/18/2025 2:00 PM EDT Appointment [facility] [address] [place] [address] 01/19/2025 2:00 PM EDT Appointment [facility] [address] [place] [address] 03/10/2025 11:20 AM EDT Office Visit [facility] 800 [facility], [address] [place] [address] Elsa Razo, INFECTIOUS DISEASES PHYSICIAN [address] [place] [address] documented as of this encounter Procedures Procedure [...] PM EDT 11/24/2024 4:20 PM EDT Result [facility] Virgen Vargas MD LAB BLOOD ORDERABLES Final Re sult [facility] [address] [place] [address] * Transfuse platelets (11/24/2024 4:11 PM EDT) [...] ORDERAB LES Final Result Performing Organization Address [facility] Co de Phone Number BLOOD BANK [address] [place] [address], [place] * Prepare Leukocyte Reduced Platelets: 1 Units (11/24/2024 2:36 PM EDT) Product Code [id number] CH BLOO D BANK Dispense Status Transfused BLOOD BANK Blood Expiration Date [id number] BLOOD BANK Unit Number [id number] CH B LOOD BANK Product Blood Type 6200 BLOOD BANK Blood Type A+ CH BLOOD BANK Blood Venous blood specimen / Unknown Kayli Ospina PA BLOOD BANK PRODUCT ORDER VIKAS Final Result Performing Organization Address [facility] de Phone Number BLOOD BANK [address] [place] [address], [place] * Prepare Leukocyte Reduced RBC: 1 Units, Irradiated (11/24/2024 2:36 PM EDT) Product Code [id number] CH BLOO D BANK Dispense Status Transfused BLOOD BANK Blood Expiration Date [id number] BLOOD BANK Unit Number [id number] CH B LOOD BANK Product Blood Type 9500 BLOOD BANK Blood Type O- CH BLOOD BANK Crossmatch Compatible BLOOD BANK Other Kayli Echeverriale PA BLOOD BANK PRODUCT ORDER VIKAS Final Result Performing Organization Address [facility] Co de Phone Number BLOOD BANK [address] [place] [address], [place] * Type and Screen (11/24/2024 2:07 [...] ORDERABLE S Final Result BLOOD BANK [address] [place] [address], * Comprehensive Metabolic Panel, Plasma (11/24/2024 2:07 PM EDT) Glucose, Plasma 97 74 - 99 mg/dL 11/24/2024 3:44 PM EDT [facility] BUN, Plasma 13 8 - 23 mg/dL 11/24/2024 3:44 PM EDT [facility] Creatinine, Plasma 0.97 0.70 - 1.20 mg/dL 11/24/2024 3:44 PM EDT [facility] BUN/Creatinine Ratio 13 11/24/2024 3:44 PM EDT [facility] Sodium, Plasma 138 136 - 145 mmol/L 11/24/2024 3:44 PM EDT [facility] Potassium, Plasma 3.7 3.6 - 4.9 mmol/L 11/24/2024 3:44 PM EDT [facility] Chloride, Plasma 107 97 - 107 mmol/L 11/24/2024 3:44 PM EDT [facility] CO2, Plasma 22 22 - 29 mmol/L 11/24/2024 3:44 PM EDT [facility] Anion Gap 9 6 - 16 mmol/L 11/24/2024 3:44 PM EDT [facility] Total Calcium, Plasma 9.5 8.9 - 10.2 mg/dL 11/24/2024 3:44 PM EDT [facility] Total Protein 6.7 6.3 - 7.9 g/dL 11/24/2024 3:44 PM EDT [facility] Albumin, Plasma 3.8 3.5 - 5.2 g/dL 11/24/2024 3:44 PM EDT [facility] AST, Plasma 18 10 - 50 U/L 11/24/2024 3:44 PM EDT [facility] ALT, Plasma 20 10 - 50 U/L 11/24/2024 3:44 PM EDT [facility] Alkaline Phosphatase, Plasma 71 40 - 115 U/L 11/24/2024 3:44 PM EDT [facility] Total Bilirubin, Plasma 0.7 0.2 - 1.1 mg/dL 11/24/2024 3:44 PM EDT [facility] eGFRcr 84.5 mL/min/1.7 3m*2 11/24/2024 3:44 PM EDT [facility] Comment:Reported eGFRcr in m L/min/1.73m2 is based the CKD-EPI 2020 equation that does not use a race coefficient. Blood Venous blood specimen / Unknown Venipuncture / Unknown 11/24/2024 2:07 PM EDT 11/24/2024 2:44 PM EDT Virgen Vargas MD LAB BLOOD ORDERABLES Final Re sult [facility] [address] [place] [address] * (ABNORMAL) CBC and Differential (11/24/2024 2:07 PM EDT) WBC Count 0.76(LL) 3.70 - 10.30 10*3/uL LAB HEMATOLOGY METHOD 11/24/2024 2:44 PM EDT [facility] RBC Count 2.37(L) 4.60 - 6.10 10*6/uL LAB HEMATOLOGY METHOD 11/24/2024 2:44 PM EDT [facility] HGB 8.0(L) 13.7 - 17.5 g/dL LAB HEMATOLOGY METHOD 11/24/2024 2:44 PM EDT [facility] HCT 22.3(L) 40.0 - 51.0 % LAB HEMATOLOGY METHOD 11/24/2024 2:44 PM EDT [facility] Platelet Count 12(LL) 155 - 369 10*3/uL LAB HEMATOLOGY METHOD 11/24/2024 2:44 PM EDT [facility] MCV 94 79 - 98 fL LAB HEMATOLOGY METHOD 11/24/2024 2:44 PM EDT [facility] MCH 33.8(H) 26.0 - 32.0 pg LAB HEMATOLOGY METHOD 11/24/2024 2:44 PM EDT [facility] MCHC 35.9(H) 30.7 - 35.5 g/dL LAB HEMATOLOGY METHOD 11/24/2024 2:44 PM EDT [facility] RDW 18.8(H) 11.5 - 14.5 % LAB HEMATOLOGY METHOD 11/24/2024 2:44 PM EDT [facility] MPV LAB HEMATOLOGY METHOD 11/24/2024 2:44 PM EDT [facility] Comment:Not Measured nRBC 0.0 <=0.0 per 100 WBCs LAB HEMATOLOGY METHOD 11/24/2024 2:44 PM EDT [facility] Differential Type Automated LAB HEMATOLOGY METHOD 11/24/2024 2:44 PM EDT [facility] Neutrophils % 16 % LAB HEMATOLOGY METHOD 11/24/2024 2:44 PM EDT [facility] Lymphocytes % 79 % LAB HEMATOLOGY METHOD 11/24/2024 2:44 PM EDT [facility] Monocytes % 4 % LAB HEMATOLOGY METHOD 11/24/2024 2:44 PM EDT [facility] Eosinophils % 1 % LAB HEMATOLOGY METHOD 11/24/2024 2:44 PM EDT [facility] Basophils % 0 % LAB HEMATOLOGY METHOD 11/24/2024 2:44 PM EDT [facility] Immature Granulocytes % 0 % LAB HEMATOLOGY METHOD 11/24/2024 2:44 PM EDT [facility] Neutrophils Absolute 0.12(LL) 1.60 - 6.10 10*3/uL LAB HEMATOLOGY METHOD 11/24/2024 2:44 PM EDT [facility] Lymphocytes Absolute 0.60(L) 1.20 - 3.90 10*3/uL LAB HEMATOLOGY METHOD 11/24/2024 2:44 PM EDT [facility] Monocytes Absolute 0.03(L) 0.30 - 0.90 10*3/uL LAB HEMATOLOGY METHOD 11/24/2024 2:44 PM EDT [facility] Eosinophils Absolute 0.01 0.00 - 0.50 10*3/uL LAB HEMATOLOGY METHOD 11/24/2024 2:44 PM EDT [facility] Basophils Absolute 0.00 0.00 - 0.10 10*3/uL LAB HEMATOLOGY METHOD 11/24/2024 2:44 PM EDT [facility] Immature Granulocytes Absolute 0.00 0.00 - 0.06 10*3/uL LAB HEMATOLOGY METHOD 11/24/2024 2:44 PM EDT [facility] Blood Venous blood specimen / Unknown Venipuncture / Unknown 11/24/2024 2:07 PM EDT 11/24/2024 2:13 PM EDT Narrative [facility]ARE [facility] - 11/24/2024 2:44 PM EDT Therapeutic decision making should be based on absolute values, rather than percentages. us Virgen Vargas MD LAB BLOOD ORDERABLES Final Re sult [facility] [address] [place] [id number] documented in this encounter Visit Diagnoses Diagnosis [...] documented as of this encounter Care Teams Comptometer Operator Relationship Specialty Start Date End Date Zhao Harris MD [address] [place] [address] PCP - General 12/03/20 documented as of this encounter
--- OUTSIDE RECORDS SUMMARY | 2024-11-24 14:30 | XMS_ITS | Encounter Summary ---
Author Organization [facility] Address [address] [place] [address] Care Team Providers Care Tomahawk Weapon System Operator Name Role Phone Zhao Harris MD Primary Care Provider [phone] Encounter Details Date Type Department Care Team (Latest Contact Info) Description 11/24/2024 2:30 PM EDT - 11/24/2024 11:59 PM EDT Hospital Encounter [facility] Infusion Clinic [address] [place] [phone] Discharge Disposition: Home or Self Care Social [...] drink first t manav in the morning (EYE-ATTORNEY LAWYER) to steady your nerves or to get [...] 5 MG tabletIndications :Coronary artery disease involving [place] heart with angina pectoris, unspecified vessel or [...] constipation. 30 tablet 3 10/23/2024 HYDROcodone-aceta minophen ([place]) 5-325 MG tablet Take 1 tablet by mouth every 6 hours as needed. 11/07/2024 nitroglycerin (Nitrostat) 0.4 MG SL tabletIndications :Coronary artery disease involving [place] heart with angina pectoris, unspecified vessel or [...] 2.5 MG tabletIndications :Coronary artery disease involving [place] heart with angina pectoris, unspecified vessel or [...] CC Hematology/BMT and Cellular Therapy Program [address] [address] 01/06/2025 9:00 AM EDT Procedure Visit PAV CC Hematology/BMT and Cellular Therapy Program [address] [phone] Kierra Novak, MEN'S AND BOYS' CLOTHING SALESPERSON 800 [facility] [address] [place] [phone] 01/13/2025 9:30 AM EDT Clinical Support PAV CC Hematology/BMT and Cellular Therapy Program [address] [phone] 01/13/2025 10:00 AM EDT Office Visit PAV CC Hematology/BMT and Cellular Therapy Program [address] [phone] Isaura Wynn, MEN'S AND BOYS' CLOTHING SALESPERSON 800 [facility] [address] [place] [phone] 01/13/2025 11:30 AM EDT Appointment P[facility] H Infusion [address] [place] [phone] 01/14/2025 2:00 PM EDT Appointment [facility] H Infusion [address] [place] [address] 01/15/2025 2:00 PM EDT Appointment [facility] H Infusion [address] [place] [address] 01/16/2025 2:00 PM EDT Appointment [facility] H Infusion [address] [place] [address] 01/17/2025 2:00 PM EDT Appointment [facility] H Infusion [address] [place] [phone] 01/18/2025 2:00 PM EDT Appointment [facility] H Infusion [address] [place] [address] 01/19/2025 2:00 PM EDT Appointment [facility] H Infusion [address] [place] [address] 03/10/2025 11:20 AM EDT Office Visit Pav CC Head, Neck & Respiratory 800 [facility], 2nd [place] [phone] Elsa Razo, MEN'S AND BOYS' CLOTHING SALESPERSON 800 [place] [address] documented as of this encounter Visit Diagnoses [...] documented as of this encounter Care Teams Tomahawk Weapon System Operator Relationship Specialty Start Date End Date Zhao Harris MD [address] [place], [place] [phone] PCP - General 12/03/20 documented as of this encounter
--- OUTSIDE RECORDS SUMMARY | 2024-11-26 10:00 | XMS_ITS | Encounter Summary ---
Author Organization [facility] Address [address] [place] [address] Care Team Providers Care Flight Superintendent Name Role Phone Zhao Harris MD Primary Care Provider [phone] Reason for Visit * Reason Comments Consult Encounter Details Date Type Department Care Team (Latest Contact Info) Description 11/26/2024 10:00 AM EDT [facility] Visit [facility] Radiology [address] [place] [address] Latoya Nunez N, POLICE LIAISON OFFICER [address] [place] [address] Preop examination (Primary Dx) Social [...] drink first t manav in the morning (EYE-MALT HOUSE LOADER) to steady your nerves or to get [...] daily., Disp: 90 tablet, Rfl: 3 HYDROcodone-acetaminophen ([place]) 5-325 MG tablet, Take 1 tablet by [...] from the original note were not included. [address]2886 Vascular Access Port Implantation Port implantation is [...] All prescription medicines, especially blood thinners ?? Aljr-nua-qtdmddo medicines such as aspirin or ibuprofen ?? [...] dislodged Last Reviewed Date: 2024 00:00:00 ?? [id number] [employer]. All rights reserved. This information is not intended as a substitute for professional medical care. Always follow your healthcare professional's instructions. documented in this encounter Plan of Treatment Upcoming Encounters Date Type Department Care Team ([facility] Contact Info) Description 01/06/2025 8:30 AM EDT Clinical Support [facility] Hematology/BMT and Cellular Therapy Program [address] [place] [phone] 01/06/2025 9:00 AM EDT Procedure Visit [facility] Hematology/BMT and Cellular Therapy Program [address] [phone] Kierra Novak, ESTRELLA 800 [facility] [address] [place] [phone] 01/13/2025 9:30 AM EDT Clinical Support [facility] Hematology/BMT and Cellular Therapy Program [address] [place] [phone] 01/13/2025 10:00 AM EDT Office Visit [facility] Hematology/BMT and Cellular Therapy Program [address] [place] [phone] Isaura Wynn, ESTRELLA 800 [facility] [address] [place] [phone] 01/13/2025 11:30 AM EDT Appointment [facility] H Infusion [address] [place] [address] 01/14/2025 2:00 PM EDT Appointment [facility] Infusion [address] [place] [address] 01/15/2025 2:00 PM EDT Appointment [facility] Infusion [address] [place] [address] 01/16/2025 2:00 PM EDT Appointment [facility] Infusion [address] [place] [address] 01/17/2025 2:00 PM EDT Appointment [facility] Infusion [address] [place] [address] 01/18/2025 2:00 PM EDT Appointment [facility] Infusion [address] [place] [address] 01/19/2025 2:00 PM EDT Appointment [facility] Infusion [address] [place] [address] 03/10/2025 11:20 AM EDT Office Visit [facility] Head, Neck & Respiratory 800 [facility], 2nd [place] [address] Elsa Razo, POLICE LIAISON OFFICER [address] [place] [address] documented as of this encounter Results * Protime-INR (11/26/2024 10:51 AM EDT) [facility] Prothrombin Time 13.8 12.0 - 14.3 sec LAB COAGULATION METHOD 11/26/2024 11:52 AM EDT [facility] INR 1.1 0.9 - 1.1 LAB COAGULATION METHOD 11/26/2024 11:52 AM EDT [facility] Blood Venous blood specimen / Unknown Venipuncture / Unknown 11/26/2024 10:51 AM EDT 11/26/2024 10:51 AM EDT Narrative [facility] - 11/26/2024 11:52 AM EDT OPTIMAL INR RANGES FOR PATIENT ON ORAL ANTICOAGULANT THERAPY Prevention of venous thromboembolism INR 2.0 to 3.0 In patients with heart disease: Atrial fibrillation INR 2.0 to 3.0 Valvular heart disease INR 2.0 to 3.0 Tissue heart valves INR 2.0 to 3.0 Mechanical prosthetic valves INR 2.5 to 3.5 Prevention of recurrent [place] INR 2.5 to 3.5 Latoya Stephanie Enrique POLICE LIAISON OFFICER LAB BLOOD ORDERABLES Final R esult [facility] [address] [place] [address] documented in this encounter Visit Diagnoses Diagnosis [...] documented as of this encounter Care Teams Flight Superintendent Relationship Specialty Start Date End Date Zhao Harris MD [address] [place] [address] PCP - General 12/03/20 documented as of this encounter
--- OUTSIDE RECORDS SUMMARY | 2024-12-01 08:41 | XMS_ITS | Encounter Summary ---
Author Organization [facility] Address [address] [place] [address] Care Team Providers Care Recruiter Specialist Name Role Phone Zhao Harris MD Primary Care Provider [phone] Reason for Referral * Consultation (Routine) - Closed Specialty Diagnoses / Procedures Referred By Contact Referred To Contact Interventional Radiology Diagnoses Myelodysplasia (myelodysplastic syndrome) (CMS/HCC) Mckinley Lee MD [address] [place] [address] Phone: tel:[phone] fax:[phone] [facility] Vascular Interventional Radiology [address] [place] [address] Phone: tel: Referral ID Status Reason Start Date Expiration Date V isits Requested Visits Authorized [id number] Closed Specialty Services Required 12/01/2024 06/02/2026 1 1 * Imaging (Routine) - Closed Specialty Diagnoses / Procedures Referred By Justice mcgee Referred To Contact Radiology Diagnoses Myelodysplasia (myelodysplastic syndrome) (CMS/HCC) Procedures IR Port Placement 5+ Years Consult to Interventional Radiology Isaura Wynn APRN 800 [facility] [address] [place] [address] Phone: tel: fax: Referral ID Status Reason Start Date Expiration Date Visits Re quested Visits Authorized [id number] Closed 11/18/2024 05/20/2026 1 1 Reason for Visit * Imaging (Routine) - Closed Specialty Diagnoses / Procedures Referred By Justice mcgee Referred To Contact Radiology Diagnoses Myelodysplasia (myelodysplastic syndrome) (CMS/HCC) Procedures IR Port Placement 5+ Years Consult to Interventional Radiology Isaura Wynn APRN 800 [facility] [address] [place] [address] Phone: tel: fax: Referral ID Status Reason Start Date Expiration Date Visits Re quested Visits Authorized [id number] Closed 11/18/2024 05/20/2026 1 1 Encounter Details Date Type Department Care Team (Latest Contact Info) Description 12/01/2024 8:41 AM EDT - 12/01/2024 11:59 PM EDT Hospital Encounter [facility] A Interventional Radiology [address] [place] [address] Gela Singer Thrombocytopenia (CMS/HCC) (Primary Dx); Myelodysplasia [...] drink first t manav in the morning (EYE-COMPOUNDING ASSISTANT) to steady your nerves or to [...] call: Vascular & Interventional Radiology Clinic at [phone] Sunday - Sunday 8:00 AM to 4:30 PM After hours, weekends, and holidays please call [phone] and ask for the Interventional Radiology provider/Resident on-call For Emergencies please go to the nearest Emergency Room or dial 911. Intervention Radiology Appointments: If you need to reschedule a procedure, please call our Schedulers at [phone], option 4. If you need to schedule or reschedule a clinic appointment, please call [phone]. [facility] Vascular and Interventional Radiology Clinic [facility] [address] [place] [address] documented in this encounter Medications at Time of Discharge acyclovir (Zovirax) 800 MG tabletIndications :Myelodysplasia (myelodysplastic syndrome) (CMS/HCC) Take 1 tablet (800 mg) by mouth in the morning and 1 tablet (800 mg) before bedtime. 60 tablet 3 10/14/2024 bisoprolol (Zebeta) 5 MG tabletIndications :Coronary artery disease involving [place] si[place] heart with angina pectoris, unspecified vessel or [...] constipation. 30 tablet 3 10/23/2024 HYDROcodone-aceta minophen ([place]) 5-325 MG tablet Take 1 tablet by mouth every 6 hours as needed. 11/07/2024 hydrocortisone 2.5 % cream Apply 1 Application topically as needed for rash. 20 g 12/09/2024 nitroglycerin (Nitrostat) 0.4 MG SL tabletIndications :Coronary artery disease involving [place] si[place] heart with angina pectoris, unspecified vessel or lesion type (CMS/HCC) Place 1 tablet (0.4 mg) under the tongue every 5 (five) minutes as needed for chest pain. 10 tablet 11 09/11/2024 amLODIPine (Norvasc) 2.5 MG tabletIndications :Coronary artery disease involving [place] si[place] heart with angina pectoris, unspecified vessel or [...] Radiology Brief Postprocedure Note Attending: Dr. Lee Coil Connector Repairer: Dr. Hernandez Pre-operative Diagnosis: AML, need for [...] been discussed with the patient and/or their market survey representative. All questions answered and they agree [...] daily., Disp: 90 tablet, Rfl: 3 HYDROcodone-acetaminophen ([place]) 5-325 MG tablet, Take 1 tablet by [...] Upcoming Encounters Date Type Department Care Team ([facility] Contact Info) Description 01/06/2025 8:30 AM EDT Clinical Support [facility] Hematology/BMT and Cellular Therapy Program [address] [phone] 01/06/2025 9:00 AM EDT Procedure Visit [facility] Hematology/BMT and Cellular Therapy Program [address] [phone] Kierra Novak, GRANITE WORKER 800 [facility] [address] [place] [address] 01/13/2025 9:30 AM EDT Clinical Support [facility] Hematology/BMT and Cellular Therapy Program [address] [address] 01/13/2025 10:00 AM EDT Office Visit [facility] Hematology/BMT and Cellular Therapy Program [address] [phone] Isaura Wynn, GRANITE WORKER 800 [facility] [address] [place] [phone] 01/13/2025 11:30 AM EDT Appointment PAV H Infusion [address] [place] [address] 01/14/2025 2:00 PM EDT Appointment P[facility] H Infusion [address] [place] [address] 01/15/2025 2:00 PM EDT Appointment PAV H Infusion [address] [place] [address] 01/16/2025 2:00 PM EDT Appointment P[facility] H Infusion [address] [place] [address] 01/17/2025 2:00 PM EDT Appointment PAV H Infusion [address] [place] [address] 01/18/2025 2:00 PM EDT Appointment PAV H Infusion [address] [place] [address] 01/19/2025 2:00 PM EDT Appointment PAV H Infusion [address] [place] [address] 03/10/2025 11:20 AM EDT Office Visit Pav CC Head, Neck & Respiratory 800 [facility], [address]nd [place] [address] Elsa Razo, GRANITE WORKER [address] [place] [address] Scheduled Referrals Name Type Priority Associated Diagnoses Order Schedule Discharge Ambulatory referral to [facility] Outpatient Referral Routine Myelodysplasia (myelodysplastic [...] for port placement. New AML, starting chemotherapy. Notary Public: Mckinley Lee MD Secondary Senior Product Designer: Dr. Dvaid Holt Rad Dose: 6 mGy Fluoroscopy Time: [...] was placed supine on the fluoro table. Scenic Arts Supervisor ultrasonography revealed the vein to be [...] with no evidence of complication. Device: 6 Hong Konger port catheter cut to length of 25 cm. COMPARISON: None. FINDINGS: Patent R IJV COMPLICATION: No. Procedure Note Mckinley Lee MD - 12/02/2024 CLINICAL INDICATION: 69M here for port placement. New AML, starting chemotherapy. Notary Public: Mckinley Lee MD Secondary Senior Product Designer: Dr. David Holt Rad Dose: 6 mGy [...] patient was placed supine on the fluoro table.Scenic Arts Supervisor ultrasonography revealed the vein to be [...] well with no evidence ofcomplication. Device: 6 Hong Konger port catheter cut to length of 25 [...] MD on 12/02/2024 7:02 AM Isaura Wynn GRANITE WORKER IMG IR PROCEDURES Final Result * Transfuse [...] ORDERAB LES Final Result BLOOD BANK [address] [place] [address], * (ABNORMAL) WBC Differential (12/01/2024 9:39 AM EDT) Differential Type Automated LAB HEMATOLOGY METHOD 12/01/2024 11:33 AM EDT [facility] Neutrophils % 9 % LAB HEMATOLOGY METHOD 12/01/2024 11:33 AM EDT [facility] Lymphocytes % 84 % LAB HEMATOLOGY METHOD 12/01/2024 11:33 AM EDT [facility] Monocytes % 6 % LAB HEMATOLOGY METHOD 12/01/2024 11:33 AM EDT [facility] Eosinophils % 1 % LAB HEMATOLOGY METHOD 12/01/2024 11:33 AM EDT [facility] Basophils % 0 % LAB HEMATOLOGY METHOD 12/01/2024 11:33 AM EDT [facility] Immature Granulocytes % 0 % LAB HEMATOLOGY METHOD 12/01/2024 11:33 AM EDT [facility] Immature Granulocytes Absolute 0.00 0.00 - 0.06 10*3/uL LAB HEMATOLOGY METHOD 12/01/2024 11:33 AM EDT [facility] Neutrophils Absolute 0.06(LL) 1.60 - 6.10 10*3/uL LAB HEMATOLOGY METHOD 12/01/2024 11:33 AM EDT [facility] Lymphocytes Absolute 0.59(L) 1.20 - 3.90 10*3/uL LAB HEMATOLOGY METHOD 12/01/2024 11:33 AM EDT [facility] Monocytes Absolute 0.04(L) 0.30 - 0.90 10*3/uL LAB HEMATOLOGY METHOD 12/01/2024 11:33 AM EDT [facility] Basophils Absolute 0.00 0.00 - 0.10 10*3/uL LAB HEMATOLOGY METHOD 12/01/2024 11:33 AM EDT [facility] Eosinophils Absolute 0.01 0.00 - 0.50 10*3/uL LAB HEMATOLOGY METHOD 12/01/2024 11:33 AM EDT [facility] Blood Venous blood specimen / Unknown Venipuncture / Unknown 12/01/2024 9:39 AM EDT 12/01/2024 9:56 AM EDT us Virgen Vargas MD LAB BLOOD ORDERABLES Final Re sult [facility] [address] [place] [address] * (ABNORMAL) CBC (12/01/2024 9:39 AM EDT) WBC Count 0.64(LL) 3.70 - 10.30 10*3/uL LAB HEMATOLOGY METHOD 12/01/2024 4:21 PM EDT [facility] RBC Count 2.29(L) 4.60 - 6.10 10*6/uL LAB HEMATOLOGY METHOD 12/01/2024 4:21 PM EDT [facility] HGB 7.6(L) 13.7 - 17.5 g/dL LAB HEMATOLOGY METHOD 12/01/2024 4:21 PM EDT [facility] HCT 20.9(L) 40.0 - 51.0 % LAB HEMATOLOGY METHOD 12/01/2024 4:21 PM EDT [facility] Platelet Count 14(LL) 155 - 369 10*3/uL LAB HEMATOLOGY METHOD 12/01/2024 4:21 PM EDT [facility] MCV 91 79 - 98 fL LAB HEMATOLOGY METHOD 12/01/2024 4:21 PM EDT [facility] MCH 33.2(H) 26.0 - 32.0 pg LAB HEMATOLOGY METHOD 12/01/2024 4:21 PM EDT [facility] MCHC 36.4(H) 30.7 - 35.5 g/dL LAB HEMATOLOGY METHOD 12/01/2024 4:21 PM EDT [facility] RDW 17.7(H) 11.5 - 14.5 % LAB HEMATOLOGY METHOD 12/01/2024 4:21 PM EDT [facility] MPV LAB HEMATOLOGY METHOD 12/01/2024 4:21 PM EDT [facility] Comment:Not Measured nRBC 0.0 <=0.0 per 100 WBCs LAB HEMATOLOGY METHOD 12/01/2024 4:21 PM EDT [facility] Blood Venous blood specimen / Unknown Venipuncture / Unknown 12/01/2024 9:39 AM EDT 12/01/2024 9:56 AM EDT Mckinley Lee MD LAB BLOOD ORDERABLES Final R esult Performing Organization Address City/[facility]/ZIP Co de Phone Number [facility] [address] [place] [address] * Prepare Leukocyte Reduced Platelets: 1 Units, Irradiated (12/01/2024 8:52 AM EDT) [facility] Product Code [id number] BLOO D BANK Dispense Status Transfused BLOOD BANK Blood Expiration Date [id number] BLOOD BANK Unit Number [id number] CH B LOOD BANK Product Blood Type 6200 BLOOD BANK Blood Type A+ BLOOD BANK Blood Venous blood specimen / Unknown Mckinley Lee MD BLOOD BANK PRODUCT ORDERABLE S Final Result Performing Organization Address City/[facility] Co de Phone Number BLOOD BANK [address] [place] [address], documented in this encounter Visit Diagnoses Diagnosis [...] mL Right Neck lidocaine-EPINEPHrine (Xylocaine W/EPI) 1 %-1:585804 injection As needed, Starting on Sun12/01/24 at [...] documented as of this encounter Care Teams Recruiter Specialist Relationship Specialty Start Date End Date Zhao Harris MD [address] [place] [id number] PCP - General 12/03/20 documented as of this encounter
--- OUTSIDE RECORDS SUMMARY | 2024-12-09 08:30 | XMS_ITS | Encounter Summary ---
Author Organization [facility] Address [address] [place] [address] Care Team Providers Care Medical Charge Entry Specialist Name Role Phone Zhao Harris MD Primary Care Provider [phone] Reason for Visit * Reason Comments Labs Nurse Visit Encounter Details Date Type Department Care Team ([facility] Contact Info) Description 12/09/2024 8:30 AM EDT Clinical Support PAV CC Hematology/BMT and Cellular Therapy Program [address] [place] [address] [place] [address] Social History Tobacco Use Types Packs/Day Years [...] first t manav in the morning (EYE-LEAD SOFTWARE DEVELOPMENT ENGINEER) to steady your nerves or to [...] Upcoming Encounters Date Type Department Care Team ([facility] st Contact Info) Description 01/06/2025 8:30 AM EDT Clinical Support PAV CC Hematology/BMT and Cellular Therapy Program [address] [place] [phone] 01/06/2025 9:00 AM EDT Procedure Visit PAV CC Hematology/BMT and Cellular Therapy Program [address] [place] [phone] Kierra Novak, PROJECT DEVELOPMENT DIRECTOR 800 [facility] [address] [place] [phone] 01/13/2025 9:30 AM EDT Clinical Support PAV CC Hematology/BMT and Cellular Therapy Program [address] [phone] 01/13/2025 10:00 AM EDT Office Visit PAV CC Hematology/BMT and Cellular Therapy Program [address] [phone] Isaura Wynn, PROJECT DEVELOPMENT DIRECTOR 800 [facility] [address] [place] [phone] 01/13/2025 11:30 AM EDT Appointment PAV H Infusion 800 [place] [address] 01/14/2025 2:00 PM EDT Appointment PAV H Infusion [address] [place] [phone] 01/15/2025 2:00 PM EDT Appointment PAV H Infusion 800 [place] [address] 01/16/2025 2:00 PM EDT Appointment PAV H Infusion [address] [place] [address] 01/17/2025 2:00 PM EDT Appointment PAV H Infusion [address] [place] [address] 01/18/2025 2:00 PM EDT Appointment PAV H Infusion [address] [place] [address] 01/19/2025 2:00 PM EDT Appointment PAV H Infusion 800 [place] [address] 03/10/2025 11:20 AM EDT Office Visit Pav CC Head, Neck & Respiratory 800 [facility], 2nd [place] [address] Elsa Razo, PROJECT DEVELOPMENT DIRECTOR 800 [place] [address] documented as of this encounter Visit Diagnoses [...] documented as of this encounter Care Teams Medical Charge Entry Specialist Relationship Specialty Start Date End Date Zhao Harris MD [address] [address] PCP - General 12/03/20 documented as of this encounter
--- OUTSIDE RECORDS SUMMARY | 2024-12-09 09:00 | XMS_ITS | Encounter Summary ---
Author Organization [facility] Address [address] [place] [address] Care Team Providers Care Funeral Pre Arrangement Counselor Name Role Phone Zhao Harris MD Primary Care Provider + [phone] Reason for Visit * Reason Comments Procedure * Genetic Testing (Routine) - Authorized Specialty Diagnoses / Procedures Referred By Justice mcgee Referred To Contact Lab Diagnoses Myelodysplasia (myelodysplastic syndrome) (CMS/HCC) Procedures Leukemia/Lymphoma - Immunophenotyping by Flow Cytometry Virgen Vargas MD [address] [facility] [address] [address] Phone: tel: fax: Referral ID Status Reason Start Date Expiration Date V isits Requested Visits Authorized [id number] Authorized 11/18/2024 05/20/2026 1 1 Encounter Details Date Type Department Care Team (Latest Contact Info) Description 12/09/2024 9:00 AM EDT Procedure Visit [facility] Hematology/BMT and Cellular Therapy Program [address] [place] [address] Kierra Novak APRN 800 [facility] [address] [address] Myelodysplasia (myelodysplastic syndrome) (CMS/HCC) Social History Tobacco Use Types Packs/Day [...] drink first t manav in the morning (EYE-ICE SCRAPER) to steady your nerves or to get [...] Sign Reading Time Taken Comments Blood Pressure 107/67 12/09/2024 8:57 AM EDT Pulse 64 12/09/2024 8:57 AM EDT Temperature 36.8 C (98.3 F) 12/09/2024 8:57 AM EDT Respiratory Rate 16 12/09/2024 8:57 AM EDT Oxygen Saturation 100% 12/09/2024 8:57 AM EDT Inhaled Oxygen Concentration - - Weight - - Height 170.2 cm (5' 7.01 ) 12/09/2024 8:57 AM ED T Body Mass Index - - documented in this encounter Miscellaneous Notes * Progress Notes - Kierra Novak APRN - 12/09/2024 9:00 AM EDTAssociated Order(s): Biopsy bone marrow Post-Procedure Diagnose(s): Myelodysplasia (myelodysplastic syndrome) (CMS/HCC) Patient ID: Hugo Lyons is a 69 y.o. male. Encounter Diagnosis Name Primary? Myelodysplasia (myelodysplastic syndrome) (CMS/HCC) Biopsy bone marrow Date/Time: 12/09/2024 10:00 AM Performed by: Kierra Novak APRN Authorized by: Kierra Novak APRN Consent: Consent obtained: Written Consent given by: Patient Risks, benefits, and alternatives were discussed: yes Risks discussed: Bleeding, infection and pain Metaline protocol: Procedure explained and questions answered to patient or proxy's satisfaction: yes Site/side marked: yes Immediately prior to procedure, a time out was called: yes Patient identity confirmed: Verbally with patient, arm band and hospital- assigned identification number Indications: Indications: MDS/AML Pre-procedure details: Skin preparation: Povidone-iodine Preparation: Patient was prepped and draped in the usual sterile fashion Sedation: Sedation type: None Anesthesia: Anesthesia method: Local infiltration Local anesthetic: Lidocaine 1% w/o epi Procedure specific details: Pt was assisted to prone position. Specimen (core and aspiration) obtained from right iliac crest spine. Post-procedure details: Procedure completion: Tolerated well, no immediate complications documented in this encounter Plan of Treatment Upcoming Encounters Date Type Department Care Team ([facility] st Contact Info) Description 01/06/2025 8:30 AM EDT Clinical Support [facility] Hematology/BMT and Cellular Therapy Program [address] [address] 01/06/2025 9:00 AM EDT Procedure Visit [facility] Hematology/BMT and Cellular Therapy Program [address] [phone] Kierra Novak APRN 800 [facility] [address] [address] 01/13/2025 9:30 AM EDT Clinical Support [facility] Hematology/BMT and Cellular Therapy Program [address] [phone] 01/13/2025 10:00 AM EDT Office Visit [facility] Hematology/BMT and Cellular Therapy Program 750 [facility], [address] [place] [phone] Isaura Wynn, WIRE LATHER [address] [facility] [address] [place] [phone] 01/13/2025 11:30 AM EDT Appointment [facility] [address] [place] [address] 01/14/2025 2:00 PM EDT Appointment [facility] [address] [place] [address] 01/15/2025 2:00 PM EDT Appointment [facility] [address] [place] [address] 01/16/2025 2:00 PM EDT Appointment [facility] [address] [place] [address] 01/17/2025 2:00 PM EDT Appointment [facility] [address] [place] [address] 01/18/2025 2:00 PM EDT Appointment [facility] [address] [place] [address] 01/19/2025 2:00 PM EDT Appointment [facility] [address] [place] [address] 03/10/2025 11:20 AM EDT Office Visit [facility] Head[facility] Neck & Respiratory 800 [facility], [address] [place] [address] Elsa Razo, WIRE LATHER [address] [place] [phone] documented as of this encounter Procedures Procedure Name Priority Date/Time Associated Diagnosis Comments CYTOGENETICS TESTING, ONCOLOGY Routine 12/09/2024 10:15 AM EDT Myelodysplasia (myelodysplastic syndrome) (CMS/HCC) CHROMOSOME KARYOTYPE, ONCOLOGY Routine 12/09/2024 10:15 AM EDT Myelodysplasia (myelodysplastic syndrome) (CMS/HCC) LEUKEMIA/LYMPHOMA - IMMUNOPHENOTYPING BY FLOW CYTOMETRY Routine 12/09/2024 10:15 AM EDT Myelodysplasia (myelodysplastic syndrome) (CMS/HCC) BONE MARROW EXAM Routine 12/09/2024 10:1 5 AM EDT Myelodysplasia (myelodysplastic syndrome) (CMS/HCC) BIOPSY BONE MARROW Routine 12/09/2024 10 :00 AM EDT Myelodysplasia (myelodysplastic syndrome) (CMS/HCC) TYPE AND SCREEN Routine 12/09/2024 9:46 AM EDT Myelodysplasia (myelodysplastic syndrome) (CMS/HCC) MORPHOLOGY Routine 12/09/2024 8:45 AM EDT Myelodysplasia (myelodysplastic syndrome) (CMS/HCC) MANUAL DIFFERENTIAL Routine 12/09/2024 8 :45 AM EDT Myelodysplasia (myelodysplastic syndrome) (CMS/HCC) PERIPHERAL BLOOD SMEAR, PATHOLOGIST INTERPRETATION Routine 12/09/2024 8:45 AM EDT Myelodysplasia (myelodysplastic syndrome) (CMS/HCC) CBC WITH AUTO DIFFERENTIAL Routine 12/09/2024 8:45 AM EDT Myelodysplasia (myelodysplastic syndrome) (CMS/HCC) COMPREHENSIVE METABOLIC PANEL, PLASMA Routine 12/09/2024 8:45 AM EDT Myelodysplasia (myelodysplastic syndrome) (CMS/HCC) documented in this encounter Results * Chromosome Karyotype, Oncology (12/09/2024 10:15 AM EDT) Specimen Type Bone Marrow 12/16/2024 5:59 PM EDT [facility] Clinical Indication Acute Myeloid Leukemia 12/16/2024 5:59 PM EDT [facility] Specimen Adequacy Adequate 025 5:59 PM EDT [facility] Chromosome Analysis Result Giemsa-banded metaphase cells from unstimulated bone marrow cultures showed the following chromosome pattern: 43~45,X,-Y,t(4;1 4)(q21;q32),add( 5)(q13),add(16)( q11.2),-17,add(2 0)(q11.2)[cp13]/ 46,XY[7] 12/16/2024 5:59 PM EDT [facility] Interpretation Abnormal male chromosome analysis. 65% of analyzed [...] were observed on this patient's previous specimen [id number] and indicate persistent disease. Clinical correlation is recommended. Note: Per [employer] (CAP) requirement additional karyotypes were performed and charged due to the presence of clonal abnormalities. # cells counted = 20 # cells analyzed = 20 # cells karyotyped = 3 Band resolution: 400 12/16/2024 5:59 PM EDT [facility] Pathologist Signature Reviewed by: Mesfin Rae 12/16/2024 5:59 PM EDT [facility] Bone Marrow Non-blood Collection / Unknown 12/09/2024 10:15 AM EDT 12/09/2024 12:48 PM EDT us Virgen Vargas MD LAB CYTOGENETICS ORDERABLES F inal Result [facility] [address] [place] [address] * Leukemia/Lymphoma - Immunophenotyping by Flow Cytometry (12/09/2024 10:15 AM EDT) Clinical Indication AML 12/10/2024 8:51 AM EDT [facility] Flow Cytometry Interpretation APPROXIMATELY 23% POPULATION OF CD34 POSITIVE MYELOID BLASTS EXPRESSING CD34, CD117, CD13, CD33, HLA-DR, PARTIAL CD7, VARIABLE CD123, PARTIAL CD38, AND MODERATE CD45, SEE COMMENT, BONE MARROW ASPIRATE. 12/10/2024 8:51 AM EDT [facility] Comments Specimen viability is 86.0%. [...] light chains, CD123 12/10/2024 8:51 AM EDT [facility] Disclaimer This test was developed and its performance characteristics determined by the Immuno-Molecular Pathology Laboratory at the [facility]. It has not been cleared or [...] on the report. 12/10/2024 8:51 AM EDT [facility] Pathologist Signature Reviewed by: Gerry Jensen MD 12/10/2024 8:51 AM EDT [facility] MRD Indicated Test Not Indicated 8:51 AM EDT [facility] Bone Marrow Specimen from bone marrow obtained by aspiration / Unknown Non-blood Collection / Unknown 12/09/2024 10:15 AM EDT 12/09/2024 11:28 AM EDT us Virgen Vargas MD LAB FLOW CYTOMETRY ORDERABLES Final Result [facility] [address] [place] [address] * Bone marrow exam (12/09/2024 10:15 AM EDT) Case Report Bone Marrow Case: [id number] Authorizing Provider: Virgen Vargas MD Collected: 12/09/2024 1015 Ordering Location: [facility] Hematology/BMT and Received: 12/09/2024 1145 Cellular Therapy Program Pathologist: Gerry Jensen MD Specimens: A) - Bone Marrow Aspirate, right B) - Bone Marrow Biopsy, right C) - Peripheral Blood for Bone Marrow 12/19/2024 5:35 PM EDT [facility] Cytogenetics Report, Addendum Chromosome Analysis [...] were observed on this patient's previous specimen [id number] and indicate persistent disease. 12/19/2024 5:35 PM EDT [facility] Addendum electronically signed by Gerry Jensen MD on 12/19/2024 at 1735 EDT Final Diagnosis PERIPHERAL BLOOD AND BONE MARROW, RIGHT POSTERIOR ILIAC CREST, (PERIPHERAL SMEAR, ASPIRATE SMEAR, AND CORE BIOPSY): - NORMOCELLULAR BONE MARROW WITH ERYTHROID HYPERPLASIA, VIRTUALLY ABSENT MATURING GRANULOPOIESIS, AND 14% BLASTS, SEE COMMENT. 12/19/2024 5:35 PM EDT [facility] at 1706 EDT Comment While by flow cytometric analysis blasts constitute 23% of cellularity, the majority of bone marrow cellularity consists of erythroid precursors that are removed by flow cytometry. This leads to the discrepancy between the percentage of blasts by flow cytometry and morphologic examination. Nonetheless, the findings are consistent with some residual disease. 12/19/2024 5:35 PM EDT [facility] Clinical Information AML s/p cycle 2 12/19/2024 5:35 PM EDT [facility] CBC and Differential PERIPHERAL BLOOD: [...] Platelets are decreased. 12/19/2024 5:35 PM EDT [facility] Bone Marrow Differential BONE MARROW DIFFERENTIAL: 400 cells Normal Patient Neutrophils 15-50 0 Metamyelocytes 4-19 0 Myelocytes 1-18 1 Promyelocytes 1-8 0 Blasts 0-2 14 Monocytes 0-5 3 Erythroid 16-38 76 Lymphocytes 3-24 1 Eosinophils 0-6 0 Basophils 0-2 0 Plasma cells 0-4 5 Other 12/19/2024 5:35 PM EDT [facility] Aspirate Smear The bone marrow [...] predominantly normal morphology. 12/19/2024 5:35 PM T [facility] Core Biopsy The core biopsy is small and shows 5 mm of a normocellular bone marrow with a cellularity of approximately 30% that is predominantly comprised of erythroid precursors. Erythropoiesis is left-shifted, but maturing. Maturing granulopoiesis is virtually absent. Myeloid cells almost entirely consists of immature precursors. Megakaryocytes are decreased and exhibit predominantly normal morphology. 12/19/2024 5:35 PM T [facility] Flow Cytometry Interpretation Flow cytometric analysis shows approximately 23% population of CD34 positive myeloid blasts expressing CD34, CD117, CD13, CD33, HLA-DR, partial CD7, variable CD123, partial CD38, and moderate CD45 ([id number]). 12/19/2024 5:35 PM T [facility] Gross Description B. RIGHT A single specimen is received in formalin labeled bone marrow biopsy right posterior iliac crest and consists of 1 piece(s) of red/white tissue measuring 0.7 cm in length 0.2 cm in diameter. The specimen is submitted in to Histology for decalcification and routine processing. Cold Time: <1m 12/19/2024 5:35 PM EDT [facility] Note: A resident was involved in the service. I attest I examined the relevant preparations for the specimens and confirmed the diagnosis or interpretation. 12/19/2024 5:35 PM EDT [facility] Bone Marrow Peripheral blood specimen / Unknown Non-blood Collection / Unknown 12/09/2024 10:15 AM EDT 12/09/2024 11:45 AM EDT Bone marrow specimen (specimen) Specimen from bone marrow obtained by biopsy / Unknown 12/09/2024 10:15 AM EDT 12/09/2024 11:45 AM EDT Bone marrow specimen (specimen) Peripheral blood specimen / Unknown 12/09/2024 10:15 AM EDT 12/09/2024 11:46 AM EDT Virgen Vargas MD LAB PATHOLOGY ORDERABLES Edit ed Result - Final [facility] [address] [place] [address] * BIOPSY BONE MARROW (12/09/2024 10:00 AM EDT) Narrative Kierra Novak APRN - 12/09/2024 10:00 AM EDT Kierra Novak APRN 12/09/2024 12:08 PM Biopsy bone marrow Date/Time: 12/09/2024 10:00 AM Performed by: Kierra Novak APRN Authorized by: Kierra Novak APRN Consent: Consent obtained: Written Consent given by: Patient Risks, benefits, and alternatives were discussed: yes Risks discussed: Bleeding, infection and pain Metaline protocol: Procedure explained and questions answered to patient or proxy's satisfaction: yes Site/side marked: yes Immediately prior to procedure, a time out was called: yes Patient identity confirmed: Verbally with patient, arm band and hospital-assigned identification number Indications: Indications: MDS/AML Pre-procedure details: Skin preparation: Povidone-iodine Preparation: Patient was prepped and draped in the usual sterile fashion Sedation: Sedation type: None Anesthesia: Anesthesia method: Local infiltration Local anesthetic: Lidocaine 1% w/o epi Procedure specific details: Pt was assisted to prone position. Specimen (core and aspiration) obtained from right iliac crest spine. Post-procedure details: Procedure completion: Tolerated well, no immediate complications Kierra Novak APRN IN CLINIC/BEDSIDE ORDERAB LES Final Result * Type and screen (12/09/2024 9:46 AM EDT) ABO/Rh O Negative 12/09/2024 9:46 AM EDT [facility]LOOD [facility] Antibody Screen Negative 12/09/2024 9:46 AM EDT BLOOD BANK Specimen Expiration 12/12/2024 23:59 12/09/2024 9:46 AM EDT BLOOD BANK Blood Venous blood specimen / Unknown Venipuncture / Unknown 12/09/2024 9:46 AM EDT 12/09/2024 10:00 AM EDT Virgen Vargas MD LAB BLOOD BANK TEST ORDERABLE S Final Result Performing Organization Address City/State/[facility] Co de Phone Number BLOOD BANK [address] * Morphology (12/09/2024 8:45 AM EDT) Elliptocytes/ Ovalocytes Present LAB HEMATOLOGY METHOD 12/09/2024 11:45 AM EDT [facility] RBC Morphology Slide Reviewed LAB HEMATOLOGY METHOD 12/09/2024 11:45 AM EDT [facility] Platelet Estimate Platelet smear estimate consistent with automated count LAB HEMATOLOGY METHOD 12/09/2024 11:45 AM EDT [facility] Blood Venous blood specimen / Unknown Venipuncture / Unknown 12/09/2024 8:45 AM EDT 12/09/2024 8:56 AM EDT Virgen Vargas MD LAB BLOOD ORDERABLES Final Re sult [facility] [address] [place] [address] * (ABNORMAL) Manual Differential (12/09/2024 8:45 AM EDT) Blasts % 1 % LAB HEMATOLOGY METHOD 12/09/2024 11:45 AM EDT [facility] Promyelocytes % 0 % LAB HEMATOLOGY METHOD 12/09/2024 11:45 AM EDT [facility] Myelocytes % 0 % LAB HEMATOLOGY METHOD 12/09/2024 11:45 AM EDT [facility] Metamyelocytes % 0 % LAB HEMATOLOGY METHOD 12/09/2024 11:45 AM EDT [facility] Neutrophils % 10 % LAB HEMATOLOGY METHOD 12/09/2024 11:45 AM EDT [facility] Lymphocytes % 87 % LAB HEMATOLOGY METHOD 12/09/2024 11:45 AM EDT [facility] Reactive Lymphocytes % 0 % LAB HEMATOLOGY METHOD 12/09/2024 11:45 AM EDT [facility] Monocytes % 2 % LAB HEMATOLOGY METHOD 12/09/2024 11:45 AM EDT [facility] Eosinophils % 0 % LAB HEMATOLOGY METHOD 12/09/2024 11:45 AM EDT [facility] Basophils % 0 % LAB HEMATOLOGY METHOD 12/09/2024 11:45 AM EDT [facility] Blasts Absolute 0.01 10*3/UL LAB HEMATOLOGY METHOD 12/09/2024 11:45 AM EDT [facility] Promyelocytes Absolute 0.00 10*3/uL LAB HEMATOLOGY METHOD 12/09/2024 11:45 AM EDT [facility] Myelocytes Absolute 0.00 10*3/uL LAB HEMATOLOGY METHOD 12/09/2024 11:45 AM EDT [facility] Metamyelocytes Absolute 0.00 10*3/uL LAB HEMATOLOGY METHOD 12/09/2024 11:45 AM EDT [facility] Neutrophils Absolute 0.07(LL) 1.60 - 6.10 10*3/uL LAB HEMATOLOGY METHOD 12/09/2024 11:45 AM EDT [facility] Lymphocytes Absolute 0.59(L) 1.20 - 3.90 10*3/uL LAB HEMATOLOGY METHOD 12/09/2024 11:45 AM EDT [facility] Reactive Lymphocytes Absolute 0.00 10*3/uL LAB HEMATOLOGY METHOD 12/09/2024 11:45 AM EDT [facility] Monocytes Absolute 0.01(L) 0.30 - 0.90 10*3/uL LAB HEMATOLOGY METHOD 12/09/2024 11:45 AM EDT [facility] Eosinophils Absolute 0.00 0.00 - 0.50 10*3/uL LAB HEMATOLOGY METHOD 12/09/2024 11:45 AM EDT [facility] Basophils Absolute 0.00 0.00 - 0.10 10*3/uL LAB HEMATOLOGY METHOD 12/09/2024 11:45 AM EDT [facility] Blood Venous blood specimen / Unknown Venipuncture / Unknown 12/09/2024 8:45 AM EDT 12/09/2024 8:56 AM EDT Virgen Vargas MD LAB BLOOD ORDERABLES Final Re sult Performing Organization Address [facility]/ZIP Co de Phone Number [facility] [address] [place] [address] * Peripheral blood smear, pathologist interpretation (12/09/2024 8:45 AM EDT) Clinical Diagnosis, Peripheral Smear AML under therapy LAB HEMATOLOGY METHOD 12/09/2024 11:39 AM EDT [facility] Interpretation , Peripheral Smear Pancytopenia with rare circulating blast. A resident was involved in the service. I attest I examined the relevant preparations for the specimens and confirmed the diagnosis or interpretation. 12/09/2024 11:39 AM EDT [facility] Pathologist Signature, Peripheral Smear 12/09/2024 11:39 AM EDT [facility] Comment:Reviewed by: Martha Lopez MD LAB CP ASR DISCLAIMER Yes 12/09/2024 11:39 AM EDT [facility] Blood Venous blood specimen / Unknown Venipuncture / Unknown 12/09/2024 8:45 AM EDT 12/09/2024 8:56 AM EDT Virgen Vargas MD LAB PATHOLOGY ORDERABLES Terri l Result Performing Organization Address City/[facility]/ZIP Co de Phone Number [facility] [address] [place] [address] * (ABNORMAL) Comprehensive metabolic panel (12/09/2024 8:45 AM EDT) Glucose, Plasma 103(H) 74 - 99 mg/dL 12/09/2024 9:33 AM EDT [facility] BUN, Plasma 9 8 - 23 mg/dL 12/09/2024 9:33 AM EDT [facility] Creatinine, Plasma 0.78 0.70 - 1.20 mg/dL 12/09/2024 9:33 AM EDT [facility] BUN/Creatinine Ratio 12 12/09/2024 9:33 AM EDT [facility] Sodium, Plasma 140 136 - 145 mmol/L 12/09/2024 9:33 AM EDT [facility] Potassium, Plasma 3.9 3.6 - 4.9 mmol/L 12/09/2024 9:33 AM EDT [facility] Chloride, Plasma 109(H) 97 - 107 mmol/L 12/09/2024 9:33 AM EDT [facility] CO2, Plasma 21(L) 22 - 29 mmol/L 12/09/2024 9:33 AM EDT [facility] Anion Gap 10 6 - 16 mmol/L 12/09/2024 9:33 AM EDT [facility] Total Calcium, Plasma 9.0 8.9 - 10.2 mg/dL 12/09/2024 9:33 AM EDT [facility] Total Protein 6.6 6.3 - 7.9 g/dL 12/09/2024 9:33 AM EDT [facility] Albumin, Plasma 3.9 3.5 - 5.2 g/dL 12/09/2024 9:33 AM EDT [facility] AST, Plasma 31 10 - 50 U/L 12/09/2024 9:33 AM EDT [facility] ALT, Plasma 37 10 - 50 U/L 12/09/2024 9:33 AM EDT [facility] Alkaline Phosphatase, Plasma 81 40 - 115 U/L 12/09/2024 9:33 AM EDT [facility] Total Bilirubin, Plasma 0.6 0.2 - 1.1 mg/dL 12/09/2024 9:33 AM EDT [facility] eGFRcr 96.5 mL/min/1.7 3m*2 12/09/2024 9:33 AM EDT [facility] Comment:Reported eGFRcr in m L/min/1.73m2 is based the CKD-EPI 2020 equation that does not use a race coefficient. Blood Venous blood specimen / Unknown Venipuncture / Unknown 12/09/2024 8:45 AM EDT 12/09/2024 9:01 AM EDT us Virgen Vargas MD LAB BLOOD ORDERABLES Final Re sult [facility] [address] [place] [address] * (ABNORMAL) CBC and differential (12/09/2024 8:45 AM EDT) WBC Count 0.68(LL) 3.70 - 10.30 10*3/uL LAB HEMATOLOGY METHOD 12/09/2024 11:45 AM EDT [facility] RBC Count 2.34(L) 4.60 - 6.10 10*6/uL LAB HEMATOLOGY METHOD 12/09/2024 11:45 AM EDT [facility] HGB 7.5(L) 13.7 - 17.5 g/dL LAB HEMATOLOGY METHOD 12/09/2024 11:45 AM EDT [facility] HCT 20.6(L) 40.0 - 51.0 % LAB HEMATOLOGY METHOD 12/09/2024 11:45 AM EDT [facility] Platelet Count 24(L) 155 - 369 10*3/uL LAB HEMATOLOGY METHOD 12/09/2024 11:45 AM EDT [facility] MCV 88 79 - 98 fL LAB HEMATOLOGY METHOD 12/09/2024 11:45 AM EDT [facility] MCH 32.1(H) 26.0 - 32.0 pg LAB HEMATOLOGY METHOD 12/09/2024 11:45 AM EDT [facility] MCHC 36.4(H) 30.7 - 35.5 g/dL LAB HEMATOLOGY METHOD 12/09/2024 11:45 AM EDT [facility] RDW 17.1(H) 11.5 - 14.5 % LAB HEMATOLOGY METHOD 12/09/2024 11:45 AM EDT [facility] MPV 9.2 8.8 - 12.5 fL LAB HEMATOLOGY METHOD 12/09/2024 11:45 AM EDT [facility] nRBC 2.9(H) <=0.0 per 100 WBCs LAB HEMATOLOGY METHOD 12/09/2024 11:45 AM EDT [facility] Differential Type Manual LAB HEMATOLOGY METHOD 12/09/2024 11:45 AM EDT [facility] Blood Venous blood specimen / [...] MD LAB BLOOD ORDERABLES Final Re sult [facility] [address] [place] [phone] documented in this encounter Visit Diagnoses Diagnosis Myelodysplasia (myelodysplastic syndrome) (CMS/HCC) Myelodysplastic syndrome, unspecified [...] documented as of this encounter Care Teams Funeral Pre Arrangement Counselor Relationship Specialty Start Date End Date Zhao Harris MD [address] [place] [phone] PCP - General 12/03/20 documented as of this encounter
--- OUTSIDE RECORDS SUMMARY | 2024-12-09 13:30 | XMS_ITS | Encounter Summary ---
Author Organization [facility] Address [address] [place] [address] Care Team Providers Care Delivery Specialist Name Role Phone Zhao Harris MD Primary Care Provider [phone] Reason for Visit * Reason Comments Follow-up Encounter Details Date Type Department Care Team (Latest Contact Info) Description 12/09/2024 1:30 PM EDT Clinical Support [facility] Cancer Acute Treatment Clinic 800 [facility], 2nd [place] [phone] Myelodysplasia (myelodysplastic syndrome) (CMS/HCC) (Primary Dx); Thrombocytopenia [...] drink first t manav in the morning (EYE-MARKETING EFFECTIVENESS MANAGER) to steady your nerves or to [...] Upcoming Encounters Date Type Department Care Team ([facility] st Contact Info) Description 01/06/2025 8:30 AM EDT Clinical Support [facility] Hematology/BMT and Cellular Therapy Program 750 [facility], [address] [place] [address] [place] [address] 01/06/2025 9:00 AM EDT Procedure Visit [facility] CC Hematology/BMT and Cellular Therapy Program [address] [place] [address] Kierra Novak, DESIGN ARCHITECT 800 [facility] [address] [place] [phone] 01/13/2025 9:30 AM EDT Clinical Support [facility] Hematology/BMT and Cellular Therapy Program [address] [phone] 01/13/2025 10:00 AM EDT Office Visit [facility] CC Hematology/BMT and Cellular Therapy Program [address] [place] [phone] Isaura Wynn, DESIGN ARCHITECT 800 [facility] [address] [place] [phone] 01/13/2025 11:30 AM EDT Appointment PAV H Infusion 800 [place] [address] 01/14/2025 2:00 PM EDT Appointment PAV H Infusion 800 [place] [phone] 01/15/2025 2:00 PM EDT Appointment PAV H Infusion 800 [place] [address] 01/16/2025 2:00 PM EDT Appointment PAV H Infusion 800 [place] [address] 01/17/2025 2:00 PM EDT Appointment PAV H Infusion 800 [place] [address] 01/18/2025 2:00 PM EDT Appointment PAV H Infusion 800 [place] [address] 01/19/2025 2:00 PM EDT Appointment PAV H Infusion 800 [place] [address] 03/10/2025 11:20 AM EDT Office Visit Pav CC Head, Neck & Respiratory 800 [facility], 2nd [place] [phone] Elsa Razo, DESIGN ARCHITECT 800 [place] [address] documented as of this encounter Procedures Procedure Name Priority Date/Time Associated Diagnosis Comments PREPARE RBC Routine 12/09/2024 1:17 PM EDT Myelodysplasia (myelodysplastic syndrome) (CMS/HCC) Thrombocytopenia (CMS/HCC) documented in this encounter Results * Transfuse RBC, Irradiated (12/09/2024 3:57 PM EDT) Kayli CHIU BLOOD TRANSFUSION ORDERA BLES Final Result * Prepare Leukocyte Reduced RBC: 1 Units, Irradiated (12/09/2024 1:17 PM EDT) Product Code [id number] CH BLOO D BANK Dispense Status Transfused BLOOD BANK Blood Expiration Date [id number] BLOOD BANK Unit Number [id number] B LOOD BANK Product Blood Type 9500 BLOOD BANK Blood Type O- BLOOD BANK Crossmatch Compatible BLOOD BANK Other Kayli CHIU BLOOD BANK PRODUCT ORDER VIKAS Final Result BLOOD BANK 800 [place] [address], documented in this encounter Visit Diagnoses Diagnosis [...] documented as of this encounter Care Teams Delivery Specialist Relationship Specialty Start Date End Date Zhao Harris MD [address] [facility] [place] [address] PCP - General 12/03/20 documented as of this encounter
--- OUTSIDE RECORDS SUMMARY | 2024-12-11 08:30 | XMS_ITS | Encounter Summary ---
[facility] Organization [facility] Address [address] [place] [address] Care Team Providers Care Promotional Model Name Role Phone Zhao Harris MD Primary Care Provider [phone] Reason for Visit * Reason Comments Nurse Visit Labs Encounter Details Date Type Department Care Team (Latest Contact Info) Description 12/11/2024 8:30 AM EDT Clinical Support [facility] Hematology/BMT and Cellular Therapy Program [address] [place] [address] [place] [address] Myelodysplasia (myelodysplastic syndrome) (CMS/HCC) Social History Tobacco [...] drink first t manav in the morning (EYE-ANSWERING SERVICE OPERATOR) to steady your nerves or to [...] Upcoming Encounters Date Type Department Care Team ([facility] Contact Info) Description 01/06/2025 8:30 AM EDT Clinical Support [facility] Hematology/BMT and Cellular Therapy Program [address] [place] [phone] 01/06/2025 9:00 AM EDT Procedure Visit [facility] Hematology/BMT and Cellular Therapy Program [address] [phone] Kierra Novak, WET CLEANER MACHINE 800 [facility] [address] [place] [phone] 01/13/2025 9:30 AM EDT Clinical Support [facility] Hematology/BMT and Cellular Therapy Program [address] [place] [phone] 01/13/2025 10:00 AM EDT Office Visit [facility] Hematology/BMT and Cellular Therapy Program [address] [phone] Isaura Wynn, WET CLEANER MACHINE 800 [facility] [address] [place] [phone] 01/13/2025 11:30 AM EDT Appointment [facility] H Infusion [address] [place] [phone] 01/14/2025 2:00 PM EDT Appointment [facility] Infusion [address] [place] [phone] 01/15/2025 2:00 PM EDT Appointment [facility] Infusion [address] [place] [address] 01/16/2025 2:00 PM EDT Appointment [facility] Infusion [address] [place] [address] 01/17/2025 2:00 PM EDT Appointment [facility] Infusion [address] [place] [address] 01/18/2025 2:00 PM EDT Appointment [facility] Infusion [address] [place] [address] 01/19/2025 2:00 PM EDT Appointment [facility] H Infusion [address] [place] [address] 03/10/2025 11:20 AM EDT Office Visit [facility] Head, Neck & Respiratory 800 [facility], [address]nd [place] [address] Elsa Razo, WET CLEANER MACHINE [address] [place] [address] documented as of this encounter Procedures Procedure [...] LAB HEMATOLOGY METHOD 12/11/2024 10:53 AM EDT [facility] RBC Morphology Slide Reviewed LAB HEMATOLOGY METHOD 12/11/2024 10:53 AM EDT [facility] Platelet Estimate Platelet smear estimate consistent with automated count LAB HEMATOLOGY METHOD 12/11/2024 10:53 AM EDT [facility] Blood Venous blood specimen / Unknown Venipuncture / Unknown 12/11/2024 8:38 AM EDT 12/11/2024 8:50 AM EDT Virgen Vargas MD LAB BLOOD ORDERABLES Final Re sult Performing Organization Address City/[facility] Co de Phone Number [facility] [address] [place] [address] * Peripheral blood smear, pathologist interpretation (12/11/2024 8:38 AM EDT) Clinical Diagnosis, Peripheral Smear History of acute myeloid leukemia (recent bone marrow dated 12/09/2024 with 14% blasts) LAB HEMATOLOGY METHOD 12/11/2024 4:46 PM EDT [facility] Interpretation , Peripheral Smear Marked leukopenia with neutropenia and 1% circulating blasts. Dysplastic neutrophils (hypogranular) are noted. Moderate anemia and marked thrombocytopen ia. 12/11/2024 4:46 PM EDT [facility] Pathologist Signature, Peripheral Smear 12/11/2024 4:46 PM EDT [facility] Comment:Reviewed by: Omar Peralta MD Blood Venous blood specimen / Unknown Venipuncture / Unknown 12/11/2024 8:38 AM EDT 12/11/2024 8:50 AM EDT Virgen Vargas MD LAB PATHOLOGY ORDERABLES Terri l Result Performing Organization Address City/[facility]/ZIP Co de Phone Number [facility] [address] [place] [address] * (ABNORMAL) Manual Differential (12/11/2024 8:38 AM EDT) Blasts % 1 % LAB HEMATOLOGY METHOD 12/11/2024 10:53 AM EDT [facility] Promyelocytes % 0 % LAB [...] LAB HEMATOLOGY METHOD 12/11/2024 10:53 AM EDT [facility] Basophils % 0 % LAB HEMATOLOGY METHOD 12/11/2024 10:53 AM EDT [facility] Blasts Absolute 0.01 10*3/UL LAB HEMATOLOGY METHOD 12/11/2024 10:53 AM EDT [facility] Promyelocytes Absolute 0.00 10*3/uL LAB HEMATOLOGY METHOD 12/11/2024 10:53 AM EDT [facility] Myelocytes Absolute 0.00 10*3/uL LAB HEMATOLOGY METHOD 12/11/2024 10:53 AM EDT [facility] Metamyelocytes Absolute 0.00 10*3/uL LAB [...] LAB HEMATOLOGY METHOD 12/11/2024 10:53 AM EDT [facility] Blood Venous blood specimen / Unknown Venipuncture / Unknown 12/11/2024 8:38 AM EDT 12/11/2024 8:50 AM EDT us Virgen Vargas MD LAB BLOOD ORDERABLES Final Re sult [facility] [address] [place] [address] * (ABNORMAL) CBC and differential (12/11/2024 8:38 AM EDT) WBC Count 0.61(LL) 3.70 - 10.30 10*3/uL LAB HEMATOLOGY METHOD 12/11/2024 10:54 AM EDT [facility] RBC Count 2.80(L) 4.60 - 6.10 10*6/uL LAB HEMATOLOGY METHOD 12/11/2024 10:54 AM EDT [facility] HGB 8.9(L) 13.7 - 17.5 g/dL LAB HEMATOLOGY METHOD 12/11/2024 10:54 AM EDT [facility] HCT 25.1(L) 40.0 - 51.0 % LAB HEMATOLOGY METHOD 12/11/2024 10:54 AM EDT [facility] Platelet Count 11(LL) 155 - 369 10*3/uL LAB HEMATOLOGY METHOD 12/11/2024 10:54 AM EDT [facility] MCV 90 79 - 98 fL LAB HEMATOLOGY METHOD 12/11/2024 10:54 AM EDT [facility] MCH 31.8 26.0 - 32.0 pg LAB HEMATOLOGY METHOD 12/11/2024 10:54 AM EDT [facility] MCHC 35.5 30.7 - 35.5 g/dL LAB HEMATOLOGY METHOD 12/11/2024 10:54 AM EDT [facility] RDW 16.2(H) 11.5 - 14.5 % LAB HEMATOLOGY METHOD 12/11/2024 10:54 AM EDT [facility] MPV 12.3 8.8 - 12.5 fL LAB HEMATOLOGY METHOD 12/11/2024 10:54 AM EDT [facility] nRBC 4.9(H) <=0.0 per 100 WBCs LAB HEMATOLOGY METHOD 12/11/2024 10:54 AM EDT [facility] Differential Type Manual LAB HEMATOLOGY METHOD 12/11/2024 10:54 AM EDT [facility] Blood Venous blood specimen [...] MD LAB BLOOD ORDERABLES Final Re sult [facility] [address] [place] [address] * (ABNORMAL) Comprehensive Metabolic Panel, Plasma (12/11/2024 8:38 AM EDT) Glucose, Plasma 105(H) 74 - 99 mg/dL 12/11/2024 9:19 AM EDT [facility] BUN, Plasma 10 8 - 23 mg/dL 12/11/2024 9:19 AM EDT [facility] Creatinine, Plasma 0.75 0.70 - 1.20 mg/dL 12/11/2024 9:19 AM EDT [facility] BUN/Creatinine Ratio 13 12/11/2024 9:19 AM EDT [facility] Sodium, Plasma 140 136 - 145 mmol/L 12/11/2024 9:19 AM EDT [facility] Potassium, Plasma 4.1 3.6 - 4.9 mmol/L 12/11/2024 9:19 AM EDT [facility] Chloride, Plasma 110(H) 97 - 107 mmol/L 12/11/2024 9:19 AM EDT [facility] CO2, Plasma 22 22 - 29 mmol/L 12/11/2024 9:19 AM EDT [facility] Anion Gap 8 6 - 16 mmol/L 12/11/2024 9:19 AM EDT [facility] Total Calcium, Plasma 9.1 8.9 - 10.2 mg/dL 12/11/2024 9:19 AM EDT [facility] Total Protein 6.9 6.3 - 7.9 g/dL 12/11/2024 9:19 AM EDT [facility] Albumin, Plasma 4.0 3.5 - 5.2 g/dL 12/11/2024 9:19 AM EDT [facility] AST, Plasma 38 10 - 50 U/L 12/11/2024 9:19 AM EDT [facility] ALT, Plasma 40 10 - 50 U/L 12/11/2024 9:19 AM EDT [facility] Alkaline Phosphatase, Plasma 86 40 - 115 U/L 12/11/2024 9:19 AM EDT [facility] Total Bilirubin, Plasma 0.6 0.2 - 1.1 mg/dL 12/11/2024 9:19 AM EDT [facility] eGFRcr 97.7 mL/min/1.7 3m*2 12/11/2024 9:19 AM EDT [facility] Comment:Reported eGFRcr in m L/min/1.73m2 is based the CKD-EPI 2020 equation that does not use a race coefficient. Blood Venous blood specimen / Unknown Venipuncture / Unknown 12/11/2024 8:38 AM EDT 12/11/2024 8:50 AM EDT us Virgen Vargas MD LAB BLOOD ORDERABLES Final Re sult [facility] [address] [place] [address] documented in this encounter Visit Diagnoses Diagnosis Myelodysplasia (myelodysplastic syndrome) (CMS/[facility]) Myelodysplastic syndrome, unspecified documented in this encounter Additional Health Concerns Assessment Noted Time PHQ-9 Depression Total Score: 0 09/11/19 25 9:15 AM EST A fall risk assessment has been complete d for the patient 12/11/2024 2:38 PM EDT A Body Mass Index follow-up plan has been documented for the patient 12/11/2024 3:05 PM EDT documented as of this encounter Care Teams Promotional Model Relationship Specialty Start Date End Date Zhao Harris MD [address] [place] [address] PCP - General 12/03/20 documented as of this encounter
--- OUTSIDE RECORDS SUMMARY | 2024-12-11 09:00 | XMS_ITS | Encounter Summary ---
Author Organization [facility] Address [address] [place] [address] Care Team Providers Care Senior Radiation Therapist Name Role Phone Zhao Harris MD Primary Care Provider [phone] Encounter Details Date Type Department Care Team (Latest Contact Info) Description 12/11/2024 9:00 AM EDT Office Visit [facility] CC Hematology/BMT and Cellular Therapy Program [address] [address] Virgen Vargas MD 800 [facility] [address] [place] [address] Myelodysplasia (myelodysplastic syndrome) (CMS/HCC) (Primary Dx); Encounter [...] drink first t manav in the morning (EYE-LABORATORY CHEMIST) to steady your nerves or to get [...] a preserved mata-T cell profile with a CD4:YD4ruvbp of 2.7:1. Polyclonal B-cells (3%) and a small plasma cell population (0.6%) were also identified. Cytogenetics: Normal. Molecular Testing: PCR for NPM1 and FLT3 mutations are negative. Next-generation sequencing (NGS) myeloid panel: ASXL1 - p.[id number] - VAF 25% TP53 - p.Oyi265Zgr - VAF 36% U2AF1 - p.[id number] - VAF 33% 10/20/2024- started treatment with cycle 1 of azacytidine and venetoclax. 11/10/2024- bone marrow: Morphology: acute myeloid leukemia with 35% blasts. Cytogenetics: 43~46,X,-Y,t(4;14)(q21;q32),add(5)(q13),add(16)(q11.2),-17,add(20)(q11.2),+mar[c p14]/46,XY[6] 11/18/2024- started treatment with cycle 2 of azacytidine and venetoclax. 12/09/2024- bone marrow exam normocellular bone marrow with erythroid hyperplasia, virtually absent maturing granulopoiesis, and 14% blasts. Myelodysplasia (myelodysplastic syndrome) ([facility]/HCC) 09/29/2024 Initial Diagnosis Myelodysplasia (myelodysplastic syndrome) ([facility]) 10/20/2024 - Chemotherapy azaCITIDine (Vidaza) 150 [...] History: Diagnosis Date Arteriosclerotic cardiovascular disease Cancer ([facility]) Chronic stable angina ([facility]) Hypertension Past Surgical History: Procedure Laterality [...] a durable remission in the context of HO00-kshjanx AML. The third, and most promising, option would be enrollment in a clinical trial, ideally one that targets TP53- mutant disease or incorporates novel agents. Unfortunately, there are no active trials available locally or at [facility], but I have reached out to Dr. Fernandes at [facility] to explore any opportunities there. We [...] in completing the documentation. Virgen Vargas M.D. It Auditor Division of Hematology/BMT [facility] [1] Current Outpatient Medications: acyclovir (Zovirax) [...] constipation., Disp: 30 tablet, Rfl: 3 HYDROcodone-acetaminophen ([place]) 5-325 MG tablet, Take 1 tablet by [...] Upcoming Encounters Date Type Department Care Team ([facility] st Contact Info) Description 01/06/2025 8:30 AM EDT Clinical Support [facility] Hematology/BMT and Cellular Therapy Program [address] [address] 01/06/2025 9:00 AM EDT Procedure Visit [facility] Hematology/BMT and Cellular Therapy Program [address] [address] Kierra Novak, GLAZIER HELPER 800 [facility] [address] [place] [address] 01/13/2025 9:30 AM EDT Clinical Support [facility] Hematology/BMT and Cellular Therapy Program 750 [facility] [place] [address] 01/13/2025 10:00 AM EDT Office Visit [facility] CC Hematology/BMT and Cellular Therapy Program 750 [facility] [place] [address] Isaura Wynn, GLAZIER HELPER 800 [facility] [address] [place] [phone] 01/13/2025 11:30 AM EDT Appointment PAV H Infusion 800 [place] [address] 01/14/2025 2:00 PM EDT Appointment [facility] H Infusion [address] [place] [address] 01/15/2025 2:00 PM EDT Appointment [facility] H Infusion [address] [place] [address] 01/16/2025 2:00 PM EDT Appointment [facility] H Infusion [address] [place] [address] 01/17/2025 2:00 PM EDT Appointment [facility] H Infusion [address] [place] [address] 01/18/2025 2:00 PM EDT Appointment [facility] H Infusion [address] [place] [address] 01/19/2025 2:00 PM EDT Appointment [facility] H Infusion [address] [place] [address] 03/10/2025 11:20 AM EDT Office Visit Pav CC Head, Neck & Respiratory 800 [facility], 2nd [place] [address] Elsa Razo, GLAZIER HELPER [address] [place] [phone] documented as of this encounter Visit Diagnoses [...] as of this encounter Care Teams Senior Radiation Therapist Relationship Specialty Start Date End Date Zhao Harris MD [address] [place] [address] PCP - General 12/03/20 documented as of this encounter
--- OUTSIDE RECORDS SUMMARY | 2024-12-11 13:00 | XMS_ITS | Encounter Summary ---
Author Organization [facility] Address [address] [place] [address] Care Team Providers Care Liberal Arts Dean Name Role Phone Zhao Harris MD Primary Care Provider [phone] Encounter Details Date Type Department Care Team (Latest Contact Info) Description 12/11/2024 1:00 PM EDT Clinical Support [facility] Cancer Acute Treatment [facility] [address] 2nd [place] [address] Myelodysplasia (myelodysplastic syndrome) (CMS/HCC) (Primary Dx); Thrombocytopenia [...] drink first t manav in the morning (EYE-SHELLFISH PROCESSING LABORER) to steady your nerves or to [...] Support [facility] Hematology/BMT and Cellular Therapy Program [address] [place] [address] [place] [address] 01/06/2025 9:00 AM EDT Procedure Visit [facility] CC Hematology/BMT and Cellular Therapy Program [address] [phone] Kierra Novak, WAISTLINE JOINER LOCKSTITCH 800 [facility] [address] [place] [phone] 01/13/2025 9:30 AM EDT Clinical Support [facility] Hematology/BMT and Cellular Therapy Program [address] [phone] 01/13/2025 10:00 AM EDT Office Visit [facility] Hematology/BMT and Cellular Therapy Program [address] [phone] Isaura Wynn, WAISTLINE JOINER LOCKSTITCH 800 [facility] [address] [place] [phone] 01/13/2025 11:30 AM EDT Appointment [facility] H Infusion [address] [place] [phone] 01/14/2025 2:00 PM EDT Appointment [facility] Infusion [address] [place] [phone] 01/15/2025 2:00 PM EDT Appointment [facility] H Infusion [address] [place] [address] 01/16/2025 2:00 PM EDT Appointment [facility] Infusion [address] [place] [address] 01/17/2025 2:00 PM EDT Appointment [facility] H Infusion [address] [place] [address] 01/18/2025 2:00 PM EDT Appointment [facility] H Infusion [address] [place] [phone] 01/19/2025 2:00 PM EDT Appointment [facility] Infusion [address] [place] [address] 03/10/2025 11:20 AM EDT Office Visit Pav CC Head, Neck & Respiratory [address] [place] [address] Elsa Razo, WAISTLINE JOINER LOCKSTITCH 800 [place] [address] documented as of this encounter Procedures Procedure Name Priority Date/Time Associated Diagnosis Comments PLATELET COUNT, BLOOD STAT 12/11/2024 2:04 PM EDT PREPARE PLATELETS Routine 12/11/2024 12: 57 PM EDT Myelodysplasia (myelodysplastic syndrome) (CMS/HCC) Thrombocytopenia (CMS/HCC) documented in this encounter Results * Transfuse platelets (12/11/2024 2:15 PM EDT) Result [facility] Kayli CHIU BLOOD TRANSFUSION ORDERA BLES Final Result * (ABNORMAL) Platelet count (12/11/2024 2:04 PM EDT) Platelet Count 35(L) 155 - 369 10*3/uL LAB HEMATOLOGY METHOD 12/11/2024 2:37 PM EDT [facility] Blood Venous blood specimen / Unknown Venipuncture / Unknown 12/11/2024 2:04 PM EDT 12/11/2024 2:34 PM EDT Result [facility] Glenroy Kim MD LAB BLOOD ORDERABLES Fi nal Result [facility] 800 [place] [address] * Prepare Leukocyte Reduced Platelets: 1 Units (12/11/2024 12:57 PM EDT) Product Code W4099T03 CH BLOO D BANK Dispense Status Transfused BLOOD BANK Blood Expiration Date [id number] BLOOD BANK Unit Number [id number] CH B LOOD BANK Product Blood Type 6200 BLOOD BANK Blood Type A+ CH BLOOD BANK Blood Venous blood specimen / Unknown Kayli CHIU BLOOD BANK PRODUCT ORDER VIAKS Final Result BLOOD BANK [address] documented in this encounter Visit Diagnoses [...] documented as of this encounter Care Teams Liberal Arts Dean Relationship Specialty Start Date End Date Zhao Harris MD [address] [place] [address] PCP - General 12/03/20 documented as of this encounter
--- OUTSIDE RECORDS SUMMARY | 2024-12-11 14:30 | XMS_ITS | Encounter Summary ---
Author Organization [facility] Address [address] [place] [address] Care Team Providers Care Cardiovascular Lab Director Name Role Phone Zhao Harris MD Primary Care Provider [phone] Reason for Visit * Consultation (Routine) - Closed Specialty Diagnoses / Procedures Referred By Contact Referred To Contact Interventional Radiology Diagnoses Myelodysplasia (myelodysplastic syndrome) (CMS/HCC) Mckinley Lee MD [address] [place] [address] Phone: tel:[phone] fax:[phone] [facility] Vascular Interventional Radiology [address] [facility] Room [address] [place] [phone] Phone: tel: Referral ID Status Reason Start Date Expiration Date V isits Requested Visits Authorized [id number] Closed Specialty Services Required 12/01/2024 06/02/2026 1 1 Encounter Details Date Type Department Care Team (Latest Contact Info) Description 12/11/2024 2:30 PM EDT Office Visit [facility] Vascular Interventional Radiology [address] [facility] Room [address] [place] [phone] Judy Leung APRN, SHEEBA [address] [place] [address] Port-A-Cath in place (Primary Dx); [...] first t manav in the morning (EYE-TRUCK SERVICE MANAGER) to steady your nerves or to [...] Orders * Progress Notes - Judy Leung, KEEPER HELPER, DNP - 12/11/2024 2:30 PM EDT Images [...] been accessed. He is being referred to [facility] for possible trials. Allergies: Patient [...] for port placement. New AML, starting chemotherapy. Rehabilitation Counselor: Mckinley Lee MD Secondary Videotape Sales Representative: Dr. David Holt Rad Dose: 6 [...] was placed supine on the fluoro table. Cad Design Engineer ultrasonography revealed the vein to be [...] with no evidence of complication. Device: 6 Greek port catheter cut to length of 25 [...] placement on 12/01/24 - Being referred to [facility] for possible trials PLAN: - Port accessed in clinic today and functioning well - Denies fever or chills; no drainage, swelling at site - Instructed to call with any signs of infection or malfunction - Return to [facility] PRN Medical Decision Making/Plan: Diagnoses and all orders for this visit: Port-A-Cath in place - heparin flush (porcine) 100 UNIT/ML injection 500 Units Myelodysplasia (myelodysplastic syndrome) (CMS/HCC) - Discharge Ambulatory referral to [facility] Clinic I spent 35 minutes [...] Disp: 90 tablet, Rfl: 3 HYDROcodone-acetaminophen ([place]) 5-325 MG tablet, Take 1 tablet by [...] PAV Hematology/BMT and Cellular Therapy Program [address] [address] 01/06/2025 9:00 AM EDT Procedure Visit P[facility] Hematology/BMT and Cellular Therapy Program [address] [phone] Kierra Novak APRN 800 [facility] [address] [place] [phone] 01/13/2025 9:30 AM EDT Clinical Support P[facility] CC Hematology/BMT and Cellular Therapy Program [address] [phone] 01/13/2025 10:00 AM EDT Office Visit [facility] CC Hematology/BMT and Cellular Therapy Program 750 [facility], [address] [place] [phone] Isaura Wynn, KEEPER HELPER 800 [facility] [address] [place] [phone] 01/13/2025 11:30 AM EDT Appointment PAV H Infusion [address] [place] [address] 01/14/2025 2:00 PM EDT Appointment PAV H Infusion [address] [place] [address] 01/15/2025 2:00 PM EDT Appointment PAV H Infusion [address] [place] [address] 01/16/2025 2:00 PM EDT Appointment PAV H Infusion [address] [place] [address] 01/17/2025 2:00 PM EDT Appointment PAV H Infusion [address] [place] [address] 01/18/2025 2:00 PM EDT Appointment PAV H Infusion [address] [place] [address] 01/19/2025 2:00 PM EDT Appointment PAV H Infusion [address] [place] [phone] 03/10/2025 11:20 AM EDT Office Visit Pav CC Head, Neck & Respiratory 800 [facility], 2nd [place] [phone] Elsa Razo, KEEPER HELPER [address] [place] [address] documented as of this encounter [...] 12/12/2024 8:43 AM EDT us Judy Leung APRN, DNP LAB BLOOD BANK TEST ZINA KIRAN Final Result BLOOD BANK [address] [place] [address], documented in this encounter Visit Diagnoses Diagnosis [...] documented as of this encounter Care Teams Cardiovascular Lab Director Relationship Specialty Start Date End Date Zhao Harris MD [address] [place] [address] PCP - General 12/03/20 documented as of this encounter
--- OUTSIDE RECORDS SUMMARY | 2024-12-16 08:00 | XMS_ITS | Encounter Summary ---
Author Organization [facility] Address [address] [place] [address] Care Team Providers Care Scarf And Anneal Operator Name Role Phone Zhao Harris MD Primary Care Provider [phone] Reason for Visit * Reason Comments Labs Nurse Visit Encounter Details Date Type Department Care Team ([facility] Contact Info) Description 12/16/2024 8:00 AM EDT Clinical Support PAV CC Hematology/BMT and Cellular Therapy Program [address] [place] [address] [place] [address] Social History Tobacco Use Types Packs/Day Years [...] drink first t manav in the morning (EYE-STEAM HOIST OPERATOR) to steady your nerves or to [...] Upcoming Encounters Date Type Department Care Team ([facility] st Contact Info) Description 01/06/2025 8:30 AM EDT Clinical Support P[facility] CC Hematology/BMT and Cellular Therapy Program [address] [place] [phone] 01/06/2025 9:00 AM EDT Procedure Visit P[facility] CC Hematology/BMT and Cellular Therapy Program [address] [place] [phone] Kierra Novak, WEALTH MANAGEMENT MANAGER 800 [facility] [address] [place] [phone] 01/13/2025 9:30 AM EDT Clinical Support P[facility] CC Hematology/BMT and Cellular Therapy Program [address] [phone] 01/13/2025 10:00 AM EDT Office Visit P[facility] CC Hematology/BMT and Cellular Therapy Program [address] [phone] Isaura Wynn, WEALTH MANAGEMENT MANAGER 800 [facility] [address] [place] [phone] 01/13/2025 11:30 AM EDT Appointment PAV H Infusion [address] [place] [address] 01/14/2025 2:00 PM EDT Appointment PAV H Infusion [address] [place] [phone] 01/15/2025 2:00 PM EDT Appointment PAV H Infusion [address] [place] [address] 01/16/2025 2:00 PM EDT Appointment PAV H Infusion [address] [place] [address] 01/17/2025 2:00 PM EDT Appointment PAV H Infusion [address] [place] [address] 01/18/2025 2:00 PM EDT Appointment PAV H Infusion [address] [place] [address] 01/19/2025 2:00 PM EDT Appointment PAV H Infusion [address] [place] [address] 03/10/2025 11:20 AM EDT Office Visit Pav CC Head, Neck & Respiratory 800 [facility], 2nd [place] [address] Elsa Razo, WEALTH MANAGEMENT MANAGER 800 [place] [address] documented as of this encounter Visit Diagnoses [...] documented as of this encounter Care Teams Scarf And Anneal Operator Relationship Specialty Start Date End Date Zhao Harris MD [address] [address] PCP - General 12/03/20 documented as of this encounter
--- OUTSIDE RECORDS SUMMARY | 2024-12-16 08:30 | XMS_ITS | Encounter Summary ---
Author Organization [facility] Address [address] [place] [address] Care Team Providers Care Chemistry Specialist Name Role Phone Zhao Harris MD Primary Care Provider [phone] Reason for Referral * Genetic Testing (Routine) - Authorized Specialty Diagnoses / Procedures Referred By Justice t Referred To Contact Lab Diagnoses Myelodysplasia (myelodysplastic syndrome) (CMS/HCC) Procedures Leukemia/Lymphoma - Immunophenotyping by Flow Cytometry Virgen Vargas MD [address] [facility] [address] [address] Phone: tel: fax: Referral ID Status Reason Start Date Expiration Date V isits Requested Visits Authorized [id number] Authorized 12/18/2024 06/19/2026 1 1 * Genetic Testing (Routine) - Authorized Specialty Diagnoses / Procedures [facility] Referred To Contact Lab Diagnoses Myelodysplasia (myelodysplastic syndrome) (CMS/HCC) Procedures Bone marrow exam Virgen Vargas MD [address] [facility] [address] [address] Phone: tel: fax: Referral ID Status Reason Start Date Expiration Date V isits Requested Visits Authorized [id number] Authorized 12/18/2024 06/19/2026 1 1 Reason for Visit * Reason Comments Acute Myeloid Leukemia Encounter Details Date Type Department Care Team (Latest Contact Info) Description 12/16/2024 8:30 AM EDT Office Visit [facility] Hematology/BMT and Cellular Therapy Program [address] [facility] [place] [address] Isaura Wynn, HUB CUTTER APPRENTICE [address] [facility] [address] [place] [phone] Myelodysplasia (myelodysplastic syndrome) (CMS/HCC) (Primary Dx) Social [...] drink first t manav in the morning (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 Polyclonal B-cells (3%) and a small plasma cell population (0.6%) were also identified. Cytogenetics: Normal. Molecular Testing: PCR for NPM1 and FLT3 mutations are negative. Next-generation sequencing (NGS) myeloid panel: ASXL1 - p.[id number] - VAF 25% TP53 - p.[id number] - VAF 36% U2AF1 - p.[id number] - VAF 33% 10/20/2024- started treatment with [...] a durable remission in the context of [id number] AML. The third, and most promising, option would be enrollment in a clinical trial, ideally one that targets TP53- mutant disease or incorporates novel agents. Unfortunately, there are no active trials available locally or at [facility], but I have reached out to Dr. Fernandes at [facility] to explore any opportunities there. [...] daily., Disp: 90 tablet, Rfl: 3 HYDROcodone-acetaminophen ([place]) 5-325 MG tablet, Take 1 tablet by [...] History: N/A Plan: Venetoclax rx sent to [facility]. Refills due monthly. Patient will return to clinic in 4 weeks. Will follow-up at that time. documented in this encounter Plan of Treatment Upcoming Encounters Date Type Department Care Team ([facility] Contact Info) Description 01/06/2025 8:30 AM EDT Clinical Support [facility] Hematology/BMT and Cellular Therapy Program [address] [place] [phone] 01/06/2025 9:00 AM EDT Procedure Visit [facility] Hematology/BMT and Cellular Therapy Program [address] [place] [phone] Kierra Novak, HUB CUTTER APPRENTICE [address] [facility] [address] [place] [phone] 01/13/2025 9:30 AM EDT Clinical Support [facility] Hematology/BMT and Cellular Therapy Program [address] [place] [phone] 01/13/2025 10:00 AM EDT Office Visit [facility] Hematology/BMT and Cellular Therapy Program [address] [place] [phone] Isaura Wynn, HUB CUTTER APPRENTICE [address] [facility] [address] [place] [phone] 01/13/2025 11:30 AM EDT Appointment [facility] Infusion [address] [place] [address] 01/14/2025 2:00 PM EDT Appointment [facility] [address] [place] [phone] 01/15/2025 2:00 PM EDT Appointment [facility] [address] [place] [phone] 01/16/2025 2:00 PM EDT Appointment [facility] [address] [place] [address] 01/17/2025 2:00 PM EDT Appointment [facility] [address] [place] [phone] 01/18/2025 2:00 PM EDT Appointment [facility] [address] [place] [address] 01/19/2025 2:00 PM EDT Appointment [facility] [address] [place] [phone] 03/10/2025 11:20 AM EDT Office Visit Pav CC Head, Neck & Respiratory [address] [facility] [address] [place] [address] Elsa Razo, HUB CUTTER APPRENTICE [address] [place] [phone] Scheduled Orders Name Type Priority Associated Diagnoses Order Schedule Bone marrow exam Pathology and Cytology Routine Myelodysplasia (myelodysplastic syndrome) ([facility]) Expected: 12/18/2024 (Approximate), Expires: 06/20/2026 Leukemia/Lymphoma - Immunophenotyping by Flow Cytometry Lab Routine Myelodysplasia (myelodysplastic syndrome) ([facility]) Expected: 12/18/2024 (Approximate), Expires: 06/20/2026 documented as of this encounter Procedures Procedure Name Priority Date/Time Associated Diagnosis Comments GROUP A STREPTOCOCCUS BY PCR Routine 12/16/2024 9:40 AM EDT Myelodysplasia (myelodysplastic syndrome) ([facility]) STREPTOCOCCUS CULTURE Routine 12/16/2024 9:40 AM EDT [...] Streptococcus Culture (12/16/2024 9:40 AM EDT) Pathologist [facility] Culture Reading Strep A No Streptococcus pyogenes or Streptococcus dysgalactiae isolated 12/17/2024 2:28 PM EDT [facility] Swab Pharyngeal structure / Unknown Non-blood Collection / Unknown 12/16/2024 9:40 AM EDT 12/16/2024 10:10 AM EDT us Isaura Wynn APRN LAB MICROBIOLOGY - GENERAL ORD ERABLES Final Result [facility] [address] [place] [address] * Group A Streptococcus by PCR (12/16/2024 9:40 AM EDT) Pathologist [facility] Group A Streptococcus PCR Result Not Detected Not Detected 12/16/2024 11:53 AM EDT [facility] Swab Pharyngeal structure / Unknown Non-blood Collection / Unknown 12/16/2024 9:40 AM EDT 12/16/2024 10:10 AM EDT us Isaura Wynn APRN LAB MICROBIOLOGY - GENERAL ORD ERABLES Final Result Performing Organization Address City/[facility]/ZIP [place] [address] * (ABNORMAL) Uric acid (12/16/2024 8:10 AM EDT) Uric Acid, Plasma 3.0(L) 3.7 - 8.0 mg/dL 12/16/2024 8:58 AM EDT [facility] Blood Venous blood specimen / Unknown Venipuncture / Unknown 12/16/2024 8:10 AM EDT 12/16/2024 8:27 AM EDT us Isaura Wynn HUB CUTTER APPRENTICE LAB BLOOD ORDERABLES Final Res ult Performing Organization Address City/[facility]/[place] [address] * Phosphorus, Plasma (12/16/2024 8:10 AM EDT) Phosphorus, Plasma 3.4 2.5 - 4.5 mg/dL 12/16/2024 8:58 AM EDT [facility] Blood Venous blood specimen / Unknown Venipuncture / Unknown 12/16/2024 8:10 AM EDT 12/16/2024 8:27 AM EDT us Isaura Wynn HUB CUTTER APPRENTICE LAB BLOOD ORDERABLES Final Res ult [facility] [address] [place] [address] * Magnesium, Plasma (12/16/2024 8:10 AM EDT) Magnesium, Plasma 2.4 1.9 - 2.4 mg/dL 12/16/2024 8:58 AM EDT [facility] Blood Venous blood specimen / Unknown Venipuncture / Unknown 12/16/2024 8:10 AM EDT 12/16/2024 8:27 AM EDT us Isaura Gautam Mary Jovelvet HUB CUTTER APPRENTICE LAB BLOOD ORDERABLES Final Res ult Performing Organization Address [facility]/ZIP Co de Phone Number [facility] [address] [place] [address] * Lactate Dehydrogenase, Plasma (12/16/2024 8:10 AM EDT) LDH, Plasma 230 116 - 250 U/L 12/16/2024 8:58 AM EDT [facility] Blood Venous blood specimen / Unknown Venipuncture / Unknown 12/16/2024 8:10 AM EDT 12/16/2024 8:27 AM EDT us Isaura Wynn HUB CUTTER APPRENTICE LAB BLOOD ORDERABLES Final Res ult Performing Organization Address [facility] Co de Phone Number [facility] [address] [place] [address] * (ABNORMAL) Comprehensive Metabolic Panel, Plasma (12/16/2024 8:10 AM EDT) Glucose, Plasma 110(H) 74 - 99 mg/dL 12/16/2024 8:58 AM EDT [facility] BUN, Plasma 10 8 - 23 mg/dL 12/16/2024 8:58 AM EDT [facility] Creatinine, Plasma 0.79 0.70 - 1.20 mg/dL 12/16/2024 8:58 AM EDT [facility] BUN/Creatinine Ratio 13 12/16/2024 8:58 AM EDT [facility] Sodium, Plasma 140 136 - 145 mmol/L 12/16/2024 8:58 AM EDT [facility] Potassium, Plasma 4.2 3.6 - 4.9 mmol/L 12/16/2024 8:58 AM EDT [facility] Chloride, Plasma 109(H) 97 - 107 mmol/L 12/16/2024 8:58 AM EDT [facility] CO2, Plasma 21(L) 22 - 29 mmol/L 12/16/2024 8:58 AM EDT [facility] Anion Gap 10 6 - 16 mmol/L 12/16/2024 8:58 AM EDT [facility] Total Calcium, Plasma 8.9 8.9 - 10.2 mg/dL 12/16/2024 8:58 AM EDT [facility] Total Protein 6.8 6.3 - 7.9 g/dL 12/16/2024 8:58 AM EDT [facility] Albumin, Plasma 4.0 3.5 - 5.2 g/dL 12/16/2024 8:58 AM EDT [facility] AST, Plasma 23 10 - 50 U/L 12/16/2024 8:58 AM EDT [facility] ALT, Plasma 25 10 - 50 U/L 12/16/2024 8:58 AM EDT [facility] Alkaline Phosphatase, Plasma 95 40 - 115 U/L 12/16/2024 8:58 AM EDT [facility] Total Bilirubin, Plasma 0.6 0.2 - 1.1 mg/dL 12/16/2024 8:58 AM EDT [facility] eGFRcr 96.2 mL/min/1.7 3m*2 12/16/2024 8:58 AM EDT [facility] Comment:Reported eGFRcr in m L/min/1.73m2 is based the CKD-EPI 2020 equation that does not use a race coefficient. Blood Venous blood specimen / Unknown Venipuncture / Unknown 12/16/2024 8:10 AM EDT 12/16/2024 8:27 AM EDT us Isaura Wynn HUB CUTTER APPRENTICE LAB BLOOD ORDERABLES Final Res ult [facility] [address] [place] [address] * (ABNORMAL) CBC and Differential (12/16/2024 8:10 AM EDT) WBC Count 0.59(LL) 3.70 - 10.30 10*3/uL LAB HEMATOLOGY METHOD 12/16/2024 10:15 AM EDT [facility] RBC Count 2.48(L) 4.60 - 6.10 10*6/uL LAB HEMATOLOGY METHOD 12/16/2024 10:15 AM EDT [facility] HGB 8.0(L) 13.7 - 17.5 g/dL LAB HEMATOLOGY METHOD 12/16/2024 10:15 AM EDT [facility] HCT 22.1(L) 40.0 - 51.0 % LAB HEMATOLOGY METHOD 12/16/2024 10:15 AM EDT [facility] Platelet Count <5(LL) 155 - 369 10*3/uL LAB HEMATOLOGY METHOD 12/16/2024 10:15 AM EDT [facility] MCV 89 79 - 98 fL LAB HEMATOLOGY METHOD 12/16/2024 10:15 AM EDT [facility] MCH 32.3(H) 26.0 - 32.0 pg LAB HEMATOLOGY METHOD 12/16/2024 10:15 AM EDT [facility] MCHC 36.2(H) 30.7 - 35.5 g/dL LAB HEMATOLOGY METHOD 12/16/2024 10:15 [facility] RDW 16.3(H) 11.5 - 14.5 % LAB HEMATOLOGY METHOD 12/16/2024 10:15 AM EDT [facility] MPV LAB HEMATOLOGY METHOD 12/16/2024 10:15 AM EDT [facility] Comment:Not Measured nRBC 0.0 <=0.0 per 100 WBCs LAB HEMATOLOGY METHOD 12/16/2024 10:15 AM [facility] Differential Type Automated LAB HEMATOLOGY METHOD 12/16/2024 10:15 AM EDT [facility] Neutrophils % 5 % LAB HEMATOLOGY METHOD 12/16/2024 10:15 AM EDT [facility] Lymphocytes % 90 % LAB HEMATOLOGY METHOD 12/16/2024 10:15 AM EDT [facility] Monocytes % 5 % LAB HEMATOLOGY METHOD 12/16/2024 10:15 AM EDT [facility] Eosinophils % 0 % LAB HEMATOLOGY METHOD 12/16/2024 10:15 AM EDT [facility] Basophils % 0 % LAB HEMATOLOGY METHOD 12/16/2024 10:15 AM EDT [facility] Immature Granulocytes % 0 % LAB HEMATOLOGY METHOD 12/16/2024 10:15 AM EDT [facility] Neutrophils Absolute 0.03(LL) 1.60 - 6.10 [...] Final Res ult [facility] [address] [place] [address] documented in this encounter Visit Diagnoses Diagnosis [...] documented as of this encounter Care Teams Chemistry Specialist Relationship Specialty Start Date End Date Zhao Harris MD [address] [place] [address] PCP - General 12/03/20 documented as of this encounter
--- OUTSIDE RECORDS SUMMARY | 2024-12-16 10:00 | XMS_ITS | Encounter Summary ---
Author Organization [facility] Address [address] [place] [address] Care Team Providers Care Needle Loom Weaver Name Role Phone Zhao Harris MD Primary Care Provider + [phone] Reason for Visit * Episode Based Medications (Routine) - Authorized Specialty Diagnoses / Procedures Referred By Justice mcgee Referred To Contact Diagnoses Myelodysplasia (myelodysplastic syndrome) (CMS/HCC) Procedures Azacitidine Daily x 7 / Venetoclax Every 28 Days Virgen Vargas MD 800 [facility] [address] [address] Phone: tel: fax: Virgen Vargas MD [address] [address] Phone: tel: fax: Referral ID Status Reason Start Date Expiration Date V isits Requested Visits Authorized [id number] Authorized 10/20/2024 04/21/2026 1 91 Encounter Details Date Type Department Care Team (Latest Contact Info) Description 12/16/2024 10:00 AM EDT - 12/16/2024 10:59 AM EDT Hospital Encounter [facility] H Infusion [address] [place] [phone] Myelodysplasia (myelodysplastic syndrome) (CMS/HCC) (Primary Dx); Thrombocytopenia [...] drink first t manav in the morning (EYE-ENVIRONMENTAL HEALTH SANITARIAN) to steady your nerves or to get [...] Sign Reading Time Taken Comments Blood Pressure 115/75 12/16/2024 12:15 PM EDT Pulse 65 12/16/2024 12:15 PM EDT Temperature 36.8 C (98.2 F) 12/16/2024 12:15 PM EDT Respiratory Rate 18 12/16/2024 12:15 PM EDT Oxygen Saturation 100% 12/16/2024 10:51 AM EDT Inhaled Oxygen Concentration - - Weight 83.7 kg (184 lb 8.4 oz) 12/16/2024 10:51 AM EDT Height 170.2 cm (5' 7 ) 12/16/2024 10:51 AM EDT Body Mass Index 28.9 12/16/2024 10:51 AM EDT documented in this encounter Medications at Time of Discharge acyclovir (Zovirax) 800 MG tabletIndications :Myelodysplasia (myelodysplastic syndrome) (CMS/HCC) Take 1 tablet (800 mg) by mouth in the morning and 1 tablet (800 mg) before bedtime. 60 tablet 3 10/14/2024 bisoprolol (Zebeta) 5 MG tabletIndications :Coronary artery disease involving [place] heart with angina pectoris, unspecified vessel or [...] constipation. 30 tablet 3 10/23/2024 HYDROcodone-aceta minophen ([place]) 5-325 MG tablet Take 1 tablet by mouth every 6 hours as needed. 11/07/2024 hydrocortisone 2.5 % cream Apply 1 Application topically as needed for rash. 20 g 12/09/2024 lidocaine-priloca ine (Emla) 2.5-2.5 % cream Apply 1 inch cream to port site and cover with a dressing 60 minutes prior to being accessed. 30 g 2 12/09/2024 magic mouthwash BLM (FIRST-Mouthwash) suspension Use 15 mL in the mouth or throat 4 times a day as needed for mucositis (swish and swallow prn for mouth sores). Swish and swallow 15 mL 4 times daily prn for mouth sores 237 mL 2 12/16/2024 nitroglycerin (Nitrostat) 0.4 MG SL tabletIndications :Coronary artery disease involving [place] heart with angina pectoris, unspecified vessel or lesion type (CMS/HCC) Place 1 tablet (0.4 mg) under the tongue every 5 (five) minutes as needed for chest pain. 10 tablet 11 09/11/2024 venetoclax (Venclexta) 10 MG tabletIndications :Myelodysplasia (myelodysplastic syndrome) (CMS/HCC) Take 2 tablets by mouth daily for 14 days. 28 tablet 12/16/2024 venetoclax (Venclexta) 50 MG tabletIndications :Myelodysplasia (myelodysplastic syndrome) (CMS/HCC) Take 1 tablet by mouth daily for 14 days. 14 tablet 12/16/2024 documented as of this encounter Miscellaneous Notes * Addendum Note - Pilo Nolan - 12/16/2024 10:00 AM EDTEncounter addended by: Pilo Nolan on: 12/18/2024 8:43 AM Actions taken: Charge Capture section accepted * Addendum Note - Irena Velasquez - 12/16/2024 10:00 AM EDTEncounter addended by: Irena Velasquez on: 12/18/2024 9:07 AM Actions taken: Order list changed, Diagnosis association updated, Child order released for a procedure order documented in this encounter Plan of Treatment Upcoming Encounters Date Type Department Care Team (Late st Contact Info) Description 01/06/2025 8:30 AM EDT Clinical Support [facility] Hematology/BMT and Cellular Therapy Program [address] [place] [address] [place] [phone] 01/06/2025 9:00 AM EDT Procedure Visit [facility] CC Hematology/BMT and Cellular Therapy Program [address] [phone] Kierra Novak, JIVE DEVELOPER 800 [facility] [address] [place] [phone] 01/13/2025 9:30 AM EDT Clinical Support [facility] CC Hematology/BMT and Cellular Therapy Program [address] [address] 01/13/2025 10:00 AM EDT Office Visit [facility] CC Hematology/BMT and Cellular Therapy Program [address] [phone] Isaura Wynn, JIVE DEVELOPER 800 [facility] [address] [place] [phone] 01/13/2025 11:30 AM EDT Appointment [facility] H Infusion [address] [place] [address] 01/14/2025 2:00 PM EDT Appointment [facility] H Infusion [address] [place] [address] 01/15/2025 2:00 PM EDT Appointment [facility] H Infusion [address] [place] [address] 01/16/2025 2:00 PM EDT Appointment [facility] H Infusion [address] [place] [address] 01/17/2025 2:00 PM EDT Appointment [facility] H Infusion [address] [place] [address] 01/18/2025 2:00 PM EDT Appointment [facility] H Infusion [address] [place] [address] 01/19/2025 2:00 PM EDT Appointment [facility] H Infusion [address] [place] [address] 03/10/2025 11:20 AM EDT Office Visit Pav CC Head, Neck & Respiratory 800 [facility], [address]nd [place] [address] Elsa Razo, JIVE DEVELOPER [address] [place] [address] documented as of this encounter Procedures Procedure Name Priority Date/Time Associated Diagnosis Comments PLATELET COUNT, BLOOD STAT 12/16/2024 12:23 PM EDT Myelodysplasia (myelodysplastic syndrome) (CMS/HCC) TRANSFUSE PLATELETS Routine 12/16/2024 1 1:45 AM EDT Myelodysplasia (myelodysplastic syndrome) (CMS/HCC) Thrombocytopenia (CMS/HCC) TYPE AND SCREEN Routine 12/16/2024 11:08 AM EDT EXCEPTION TO STANDARD PRACTICE, PATHOLOGIST INTERPRETATION Routine 12/16/2024 10:59 AM EDT Myelodysplasia (myelodysplastic syndrome) (CMS/HCC) PREPARE PLATELETS Routine 12/16/2024 10: 54 AM EDT Myelodysplasia (myelodysplastic syndrome) (CMS/HCC) Thrombocytopenia (CMS/HCC) PREPARE RBC Routine 12/16/2024 10:54 AM EDT Myelodysplasia (myelodysplastic syndrome) (CMS/HCC) Thrombocytopenia (CMS/HCC) documented in this encounter Results * (ABNORMAL) Platelet Count, Blood (12/16/2024 12:23 PM EDT) Platelet Count 30(L) 155 - 369 10*3/uL LAB HEMATOLOGY METHOD 12/16/2024 1:00 PM EDT [facility] Blood Venous blood specimen / Unknown Venipuncture / Unknown 12/16/2024 12:23 PM EDT 12/16/2024 12:51 PM EDT us Virgen Vargas MD LAB BLOOD ORDERABLES Final Re sult [facility] [address] [place] [address] * Transfuse platelets (12/16/2024 12:21 PM EDT) Kayli Daly Bhavesh CHIU BLOOD TRANSFUSION ORDERA BLES Final Result * Transfuse platelets: 1 Units (12/16/2024 12:21 PM EDT) Kayli Daly Janetallegraaxel PA BLOOD TRANSFUSION ORDERA BLES Final Result * Type and Screen (12/16/2024 11:08 AM EDT) ABO/Rh O Negative 12/16/2024 10:53 AM EDT BLOOD BANK Antibody Screen Negative 12/16/2024 10:53 AM EDT BLOOD BANK Specimen Expiration 12/19/2024 23:59 12/16/2024 10:53 AM EDT BLOOD BANK Blood Venous blood specimen / Unknown Venipuncture / Unknown 12/16/2024 11:08 AM EDT 12/16/2024 11:17 AM EDT Virgen Vargas MD LAB BLOOD BANK TEST ORDERABLE S Final Result BLOOD BANK [address] [place] [address], * Exception to Standard Practice, Pathologist Interpretation (12/16/2024 10:59 AM EDT) Clinical Diagnosis, Exception to Standard Practice Thrombocytopenia 12/18/2024 10:35 AM EDT BLOOD BANK Interpretation , Exception to Standard Practice Your patient, who is RhD-negative, required transfusion of one unit apheresis platelet on 12/16/2024. Considering the available inventory and the necessity [...] specimens and confirmed the diagnosis or interpretation. 12/18/2024 10:35 AM EDT BLOOD BANK Pathologist Signature, Exception to Standard Practice Reviewed by: Sanjuanita Swann MD 12/18/2024 10:35 AM EDT BLOOD BANK LAB CP ASR DISCLAIMER Yes 12/18/2024 10:35 AM EDT BLOOD BANK Blood Bank Lab Only 12/16/2024 10:59 AM EDT 12/18/2024 9:06 AM EDT Juwan Horton MD LAB BLOOD BANK TEST ORDERAB LES Final Result Performing Organization Address City/[facility]/ZIP Co de Phone Number BLOOD BANK [address] [place] [address], [place] * Prepare Leukocyte Reduced Platelets: 1 Units (12/16/2024 10:54 AM EDT) Product Code J8475C50 CH BLOO D BANK Dispense Status Transfused BLOOD BANK Blood Expiration Date [id number] BLOOD BANK Unit Number [id number] CH B LOOD BANK Product Blood Type 8400 BLOOD BANK Blood Type AB+ CH BLOOD BANK Blood Venous blood specimen / Unknown Kayli CHIU BLOOD BANK PRODUCT ORDER VIKAS Final Result Performing Organization Address [facility] Co de Phone Number BLOOD BANK [address] [place] [address], [place] * Prepare Leukocyte Reduced RBC: 1 Units, Irradiated (12/16/2024 10:54 AM EDT) Product Code E2315N15 CH BLOO D BANK Dispense Status Transfused BLOOD BANK Blood Expiration Date [id number] BLOOD BANK Unit Number [id number] CH B LOOD BANK Product Blood Type 9500 BLOOD BANK Blood Type O- CH BLOOD BANK Crossmatch Compatible CH BLOOD BANK Other Kayli CHIU BLOOD BANK PRODUCT ORDER VIKAS Final Result BLOOD BANK [address] [place] [address], documented in this encounter Visit Diagnoses Diagnosis [...] Waste Container. Chemotherapy: refer to [id number]., On Sun12/16/24 at 1145, For 1 dose, In 50 mL NSIndications:Myelodysplasia (myelodysplastic syndrome) (CMS/HCC) New Bag 12/16/2024 11:30 AM EDT 150 mg 540 mL/hr ondansetron ODT (Zofran-ODT) disintegrating tablet 16 mg 16 mg, Oral, Once, 1 dose, On Sun12/16/24 at 1115, RoutineIndications:Myelodyspla haim (myelodysplastic syndrome) (CMS/HCC) Given 12/16/2024 11:02 AM EDT 16 mg documented in this encounter Additional Health Concerns Assessment Noted Time PHQ-9 Depression Total Score: 0 09/11/19 25 9:15 AM EST A fall risk assessment has been complete d for the patient 12/16/2024 10:49 AM EDT A Body Mass Index follow-up plan has been documented for the patient 12/16/2024 12:23 PM EDT documented as of this encounter Care Teams Needle Loom Weaver Relationship Specialty Start Date End Date Zhao Harris MD [address] [place] [address] PCP - General 12/03/20 documented as of this encounter
--- OUTSIDE RECORDS SUMMARY | 2024-12-16 11:00 | XMS_ITS | Encounter Summary ---
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 [address] [place] [phone] 01/13/2025 9:30 AM EDT Clinical Support [facility] Hematology/BMT and Cellular Therapy Program 750 [facility] [place] [phone] 01/13/2025 10:00 AM EDT Office Visit [facility] Hematology/BMT and Cellular Therapy Program 750 [facility] [phone] Isaura Wynn, ANALYTICAL RESEARCH CHEMIST 800 [facility] [address] [place] [phone] 01/13/2025 11:30 AM EDT Appointment [facility] Infusion 800 [place] [phone] 01/14/2025 2:00 PM EDT Appointment [facility] 800 [place] [address] 01/15/2025 2:00 PM EDT Appointment [facility] In[facility] 800 [place] [address] 01/16/2025 2:00 PM EDT Appointment [facility] Infusion [address] [place] [address] 01/17/2025 2:00 PM EDT Appointment [facility] [address] [place] [address] 01/18/2025 2:00 PM EDT Appointment [facility] Infusion [address] [place] [address] 01/19/2025 2:00 PM EDT Appointment [facility] Infusion [address] [place] [address] 03/10/2025 11:20 AM EDT Office Visit [facility] Head, Neck & Respiratory 800 [facility], 2nd [place] [phone] Elsa Razo, ANALYTICAL RESEARCH CHEMIST 800 [place] [phone] documented as of this encounter Visit Diagnoses [...] documented as of this encounter Care Teams Meter Attendant Relationship Specialty Start Date End Date Zhao Harris MD [address] [place] [address] PCP - General 12/03/20 documented as of this encounter
--- OUTSIDE RECORDS SUMMARY | 2024-12-17 08:23 | XMS_ITS | Encounter Summary ---
Author Organization [facility] Address [address] [facility] [place] [address] Care Team Providers Care Credit Charge Authorizer Name Role Phone Zhao Harris MD Primary Care Provider + [phone] Reason for Visit * Episode Based Medications (Routine) - Authorized Specialty Diagnoses / Procedures Referred By Justice mcgee Referred To Contact Diagnoses Myelodysplasia (myelodysplastic syndrome) (CMS/HCC) Procedures Azacitidine Daily x 7 / Venetoclax Every 28 Days Virgen Vargas MD 800 [facility] [address] [address] Phone: tel: fax: Virgen Vargas MD [address] [address] Phone: tel: fax: Referral ID Status Reason Start Date Expiration Date V isits Requested Visits Authorized [id number] Authorized 10/20/2024 04/21/2026 1 91 Encounter Details Date Type Department Care Team (Latest Contact Info) Description 12/17/2024 8:23 AM EDT - 12/17/2024 11:59 PM EDT Hospital Encounter [facility] Infusion 800 [place] [phone] Myelodysplasia (myelodysplastic syndrome) (CMS/HCC) (Primary Dx); Thrombocytopenia [...] drink first t manav in the morning (EYE-STRUCTURAL ENGINEERING DRAFTING OFFICER) to steady your nerves or to [...] 5 MG tabletIndications :Coronary artery disease involving [place] heart with angina pectoris, unspecified vessel or [...] constipation. 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[place] heart with angina pectoris, unspecified vessel or [...] Upcoming Encounters Date Type Department Care Team ([facility] Contact Info) Description 01/06/2025 8:30 AM EDT Clinical Support [facility] Hematology/BMT and Cellular Therapy Program [address] [place] [phone] 01/06/2025 9:00 AM EDT Procedure Visit [facility] Hematology/BMT and Cellular Therapy Program [address] [phone] Kierra Novak, MATRIX WORKER 800 [facility] [address] [place] [phone] 01/13/2025 9:30 AM EDT Clinical Support [facility] Hematology/BMT and Cellular Therapy Program [address] [address] 01/13/2025 10:00 AM EDT Office Visit [facility] Hematology/BMT and Cellular Therapy Program [address] [place], [place] [address] [place] [address] Isaura Wynn, MATRIX WORKER [address] [facility] [address] [place] [phone] 01/13/2025 11:30 AM EDT Appointment [facility] H Infusion 800 [place] [phone] 01/14/2025 2:00 PM EDT Appointment [facility] Infusion 800 [place] [address] 01/15/2025 2:00 PM EDT Appointment [facility] Infusion 800 [place] [phone] 01/16/2025 2:00 PM EDT Appointment [facility] Infusion 800 [place] [address] 01/17/2025 2:00 PM EDT Appointment [facility] In[facility] 800 [place] [address] 01/18/2025 2:00 PM EDT Appointment [facility] Infusion 800 [place] [address] 01/19/2025 2:00 PM EDT Appointment [facility] Infusion 800 [place] [address] 03/10/2025 11:20 AM EDT Office Visit [facility] CC Head, Neck & Respiratory 800 [facility], 2nd [place] [address] Elsa Razo, MATRIX WORKER 800 [place] [phone] documented as of this encounter Results * [...] dose, In 50 mL NSIndications:Myelodysplasia (myelodysplastic syndrome) ([facility]/HCC) New Bag 12/17/2024 9:23 AM EDT 150 mg 540 mL/hr ondansetron ODT (Zofran-ODT) disintegrating tablet 16 mg 16 mg, Oral, Once, 1 dose, On Sun12/17/24 at 0915, RoutineIndications:Myelodyspla haim (myelodysplastic syndrome) ([facility]) Given 12/17/2024 8:54 AM EDT 16 mg [...] documented as of this encounter Care Teams Credit Charge Authorizer Relationship Specialty Start Date End Date Zhao Harris MD [address] [place] [address] PCP - General 12/03/20 documented as of this encounter
--- OUTSIDE RECORDS SUMMARY | 2024-12-18 08:30 | XMS_ITS | Encounter Summary ---
Author Organization [facility] Address [address] [place] [address] Care Team Providers Care Pressfitter Name Role Phone Zhao Harris MD Primary Care Provider + [phone] Reason for Visit * Episode Based Medications (Routine) - Authorized Specialty Diagnoses / Procedures Referred By Justice mcgee Referred To Contact Diagnoses Myelodysplasia (myelodysplastic syndrome) (CMS/HCC) Procedures Azacitidine Daily x 7 / Venetoclax Every 28 Days Virgen Vargas MD 800 [facility] [address] [address] Phone: tel: fax: Virgen Vargas MD [address] [address] Phone: tel: fax: Referral ID Status Reason Start Date Expiration Date V isits Requested Visits Authorized [id number] Authorized 10/20/2024 04/21/2026 1 91 Encounter Details Date Type Department Care Team (Latest Contact Info) Description 12/18/2024 8:30 AM EDT - 12/18/2024 9:45 AM EDT Hospital Encounter [facility] H Infusion [address] [place] [phone] Myelodysplasia (myelodysplastic syndrome) (CMS/HCC) (Primary Dx); Thrombocytopenia [...] drink first t manav in the morning (EYE-MAKE READY WORKER) to steady your nerves or to get [...] 5 MG tabletIndications :Coronary artery disease involving [place] heart with angina pectoris, unspecified vessel [...] constipation. 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 pectoris, unspecified vessel [...] 12/16/2024 5 documented as of this encounter Miscellaneous Notes * Addendum Note - Irena Velasquez - 12/18/2024 8:30 AM EDTEncounter addended [...] Description 01/06/2025 8:30 AM EDT Clinical Support [facility] Hematology/BMT and Cellular Therapy Program [address] [place] [address] [place] [address] 01/06/2025 9:00 AM EDT Procedure Visit [facility] CC Hematology/BMT and Cellular Therapy Program [address] [phone] Kierra Novak, CROP PICKER 800 [facility] [address] [place] [phone] 01/13/2025 9:30 AM EDT Clinical Support [facility] CC Hematology/BMT and Cellular Therapy Program [address] [address] 01/13/2025 10:00 AM EDT Office Visit [facility] CC Hematology/BMT and Cellular Therapy Program [address] [phone] Isaura Wynn, CROP PICKER 800 [facility] [address] [place] [phone] 01/13/2025 11:30 AM EDT Appointment PAV H Infusion [address] [place] [address] 01/14/2025 2:00 PM EDT Appointment [facility] H Infusion [address] [place] [address] 01/15/2025 2:00 PM EDT Appointment P[facility] H Infusion [address] [place] [address] 01/16/2025 2:00 PM EDT Appointment PAV H Infusion [address] [place] [address] 01/17/2025 2:00 PM EDT Appointment PAV H Infusion [address] [place] [address] 01/18/2025 2:00 PM EDT Appointment P[facility] H Infusion [address] [place] [address] 01/19/2025 2:00 PM EDT Appointment PAV H Infusion [address] [place] [address] 03/10/2025 11:20 AM EDT Office Visit Pav CC Head, Neck & Respiratory 800 [facility], [address] [place] [address] Elsa Razo, CROP PICKER [address] [place] [address] documented as of this encounter [...] LAB HEMATOLOGY METHOD 12/18/2024 11:06 AM EDT [facility] Blood Blood sample taken from central line / Unknown Venipuncture / Unknown 12/18/2024 10:55 AM EDT 12/18/2024 11:03 AM EDT us Virgen Vargas MD LAB BLOOD ORDERABLES Final Re sult [facility] [address] [place] [address] * Transfuse platelets (12/18/2024 10:52 AM EDT) Kayli CHIU BLOOD TRANSFUSION ORDERA BLES Final Result * Transfuse platelets: 1 Units (12/18/2024 10:52 AM EDT) Kayli CHIU BLOOD TRANSFUSION ORDERA BLES Final Result * Prepare Leukocyte Reduced Platelets: 1 Units (12/18/2024 9:45 AM EDT) Pathologist [facility] Product Code [id number] BLOO D BANK Dispense Status Transfused BLOOD BANK Blood Expiration Date [id number] BLOOD BANK Unit Number [id number] B LOOD BANK Product Blood Type 6200 BLOOD BANK Blood Type A+ BLOOD BANK Blood Venous blood specimen / Unknown Kayli CHIU BLOOD BANK PRODUCT ORDER VIKAS Final Result Performing Organization Address City/State/[facility] Co de Phone Number BLOOD BANK [address] [place] [address] * (ABNORMAL) Comprehensive Metabolic Panel, Plasma (12/18/2024 9:14 AM EDT) Glucose, Plasma 108(H) 74 - 99 mg/dL 12/18/2024 9:51 AM EDT [facility] BUN, Plasma 10 8 - 23 mg/dL 12/18/2024 9:51 AM EDT [facility] Creatinine, Plasma 0.80 0.70 - 1.20 mg/dL 12/18/2024 9:51 AM EDT [facility] BUN/Creatinine Ratio 13 12/18/2024 9:51 AM EDT [facility] Sodium, Plasma 139 136 - 145 mmol/L 12/18/2024 9:51 AM EDT [facility] Potassium, Plasma 4.4 3.6 - 4.9 mmol/L 12/18/2024 9:51 AM EDT [facility] Chloride, Plasma 108(H) 97 - 107 mmol/L 12/18/2024 9:51 AM EDT [facility] CO2, Plasma 22 22 - 29 mmol/L 12/18/2024 9:51 AM EDT [facility] Anion Gap 9 6 - 16 mmol/L 12/18/2024 9:51 AM EDT [facility] Total Calcium, Plasma 8.8(L) 8.9 - 10.2 mg/dL 12/18/2024 9:51 AM EDT [facility] Total Protein 6.8 6.3 - 7.9 g/dL 12/18/2024 9:51 AM EDT [facility] Albumin, Plasma 3.9 3.5 - 5.2 g/dL 12/18/2024 9:51 AM EDT [facility] AST, Plasma 16 10 - 50 U/L 12/18/2024 9:51 AM EDT [facility] ALT, Plasma 16 10 - 50 U/L 12/18/2024 9:51 AM EDT [facility] Alkaline Phosphatase, Plasma 83 40 - 115 U/L 12/18/2024 9:51 AM EDT [facility] Total Bilirubin, Plasma 0.6 0.2 - 1.1 mg/dL 12/18/2024 9:51 AM EDT [facility] eGFRcr 95.8 mL/min/1.7 3m*2 12/18/2024 9:51 AM EDT [facility] Comment:Reported eGFRcr in m L/min/1.73m2 is based the CKD-EPI 2020 equation that does not use a race coefficient. Blood Blood sample taken from central line / Unknown Venipuncture / Unknown 12/18/2024 9:14 AM EDT 12/18/2024 9:20 AM EDT us Virgen Vargas MD LAB BLOOD ORDERABLES Final Re sult [facility] [address] [place] [address] * (ABNORMAL) CBC and differential (12/18/2024 9:14 AM EDT) WBC Count 0.51(LL) 3.70 - 10.30 10*3/uL LAB HEMATOLOGY METHOD 12/18/2024 10:49 AM EDT [facility] RBC Count 2.50(L) 4.60 - 6.10 10*6/uL LAB HEMATOLOGY METHOD 12/18/2024 10:49 AM EDT [facility] HGB 8.1(L) 13.7 - 17.5 g/dL LAB HEMATOLOGY METHOD 12/18/2024 10:49 AM EDT [facility] HCT 21.9(L) 40.0 - 51.0 % LAB HEMATOLOGY METHOD 12/18/2024 10:49 AM EDT [facility] Platelet Count 6(LL) 155 - 369 10*3/uL LAB HEMATOLOGY METHOD 12/18/2024 10:49 AM EDT [facility] MCV 88 79 - 98 fL LAB HEMATOLOGY METHOD 12/18/2024 10:49 AM EDT [facility] MCH 32.4(H) 26.0 - 32.0 pg LAB HEMATOLOGY METHOD 12/18/2024 10:49 AM EDT [facility] MCHC 37.0(H) 30.7 - 35.5 g/dL LAB HEMATOLOGY METHOD 12/18/2024 10:49 AM EDT [facility] RDW 16.7(H) 11.5 - 14.5 % LAB HEMATOLOGY METHOD 12/18/2024 10:49 AM EDT [facility] MPV LAB HEMATOLOGY METHOD 12/18/2024 10:49 AM EDT [facility] Comment:Not Measured nRBC 0.0 <=0.0 per 100 WBCs LAB HEMATOLOGY METHOD 12/18/2024 10:49 AM EDT [facility] Differential Type Automated LAB HEMATOLOGY METHOD 12/18/2024 10:49 AM EDT [facility] Neutrophils % 6 % LAB HEMATOLOGY METHOD 12/18/2024 10:49 AM EDT [facility] Lymphocytes % 90 % LAB HEMATOLOGY METHOD 12/18/2024 10:49 AM EDT [facility] Monocytes % 4 % LAB HEMATOLOGY METHOD 12/18/2024 10:49 AM EDT [facility] Eosinophils % 0 % LAB HEMATOLOGY METHOD 12/18/2024 10:49 AM EDT [facility] Basophils % 0 % LAB HEMATOLOGY METHOD 12/18/2024 10:49 AM EDT [facility] Immature Granulocytes % 0 % LAB HEMATOLOGY METHOD 12/18/2024 10:49 AM EDT [facility] Neutrophils Absolute 0.03(LL) 1.60 - 6.10 10*3/uL LAB HEMATOLOGY METHOD 12/18/2024 10:49 AM EDT [facility] Lymphocytes Absolute 0.46(L) 1.20 - 3.90 10*3/uL LAB HEMATOLOGY METHOD 12/18/2024 10:49 AM EDT [facility] Monocytes Absolute 0.02(L) 0.30 - 0.90 10*3/uL LAB HEMATOLOGY METHOD 12/18/2024 10:49 AM EDT [facility] Eosinophils Absolute 0.00 0.00 - 0.50 10*3/uL LAB HEMATOLOGY METHOD 12/18/2024 10:49 AM EDT [facility] Basophils Absolute 0.00 0.00 - 0.10 10*3/uL LAB HEMATOLOGY METHOD 12/18/2024 10:49 AM EDT [facility] Immature Granulocytes Absolute 0.00 0.00 - 0.06 10*3/uL LAB HEMATOLOGY METHOD 12/18/2024 10:49 AM EDT [facility] Blood Blood sample taken from central line / Unknown Venipuncture / Unknown 12/18/2024 9:14 AM EDT 12/18/2024 9:20 AM EDT Narrative [facility] - 12/18/2024 10:49 AM EDT Therapeutic decision making should be based on absolute values, rather than percentages. us Christina Ramos MD LAB BLOOD ORDERABLES Final Resul t [facility] [address] [place] [address] * Exception to Standard Practice, Pathologist Interpretation [...] ORDERAB LES Final Result BLOOD BANK [address] documented in this encounter Visit Diagnoses [...] documented as of this encounter Care Teams Pressfitter Relationship Specialty Start Date End Date Zhao Harris MD [address] [place] [address] PCP - General 12/03/20 documented as of this encounter
--- OUTSIDE RECORDS SUMMARY | 2024-12-18 09:46 | XMS_ITS | Encounter Summary ---
Author Organization Healthcare Address [address] [place] [address] Care Team Providers Care Electronic Development Technician Name Role Phone Zhao Harris MD Primary Care Provider [phone] Encounter Details Date Type Department Care Team (Latest Contact Info) Description 12/18/2024 9:46 AM EDT - 12/18/2024 11:59 PM EDT Hospital Encounter [facility] [address] [place] [address] Myelodysplasia (myelodysplastic syndrome) (CMS/HCC) (Primary Dx) Discharge [...] drink first t manav in the morning (EYE-FOUNDRY MOLDER) to steady your nerves or to get [...] 5 MG tabletIndications :Coronary artery disease involving [place] heart with angina pectoris, unspecified vessel or [...] constipation. 30 tablet 3 10/23/2024 HYDROcodone-aceta minophen ([place]) 5-325 MG tablet Take 1 tablet by [...] MG SL tabletIndications :Coronary artery disease involving [place] heart with angina pectoris, unspecified vessel or [...] Hematology/BMT and Cellular Therapy Program [address] [phone] 01/06/2025 9:00 AM EDT Procedure Visit [facility] Hematology/BMT and Cellular Therapy Program [address] [phone] Kierra Novak, ENTRY LEVEL JAVA DEVELOPER 800 [facility] [address] [place] [phone] 01/13/2025 9:30 AM EDT Clinical Support [facility] Hematology/BMT and Cellular Therapy Program [address] [phone] 01/13/2025 10:00 AM EDT Office Visit [facility] Hematology/BMT and Cellular Therapy Program [address] [phone] Isaura Wynn, ENTRY LEVEL JAVA DEVELOPER 800 [facility] [address] [place] [phone] 01/13/2025 11:30 AM EDT Appointment [facility] 800 [place] [phone] 01/14/2025 2:00 PM EDT Appointment [facility] 800 [place] [address] 01/15/2025 2:00 PM EDT Appointment [facility] 800 [place] [address] 01/16/2025 2:00 PM EDT Appointment [facility] 800 [place] [phone] 01/17/2025 2:00 PM EDT Appointment [facility] 800 [place] [phone] 01/18/2025 2:00 PM EDT Appointment [facility] 800 [place] [phone] 01/19/2025 2:00 PM EDT Appointment [facility] 800 [place] [address] 03/10/2025 11:20 AM EDT Office Visit [facility] Head, Neck & Respiratory 800 [facility], [address]nd [place] [address] Elsa Razo, ENTRY LEVEL JAVA DEVELOPER 800 [place] [address] documented as of this encounter Visit Diagnoses [...] as of this encounter Care Teams Electronic Development Technician Relationship Specialty Start Date End Date Zhao Harris MD [address] [address] PCP - General 12/03/20 documented as of this encounter
--- OUTSIDE RECORDS SUMMARY | 2024-12-19 08:30 | XMS_ITS | Encounter Summary ---
Author Organization [facility] Address [address] [place] [address] Care Team Providers Care Sketch Maker Name Role Phone Zhao Harris MD Primary Care Provider + [phone] Reason for Visit * Episode Based Medications (Routine) - Authorized Specialty Diagnoses / Procedures Referred By Justice mcgee Referred To Contact Diagnoses Myelodysplasia (myelodysplastic syndrome) (CMS/HCC) Procedures Azacitidine Daily x 7 / Venetoclax Every 28 Days Virgen Vargas MD [address] [address] Phone: tel: fax: Virgen Vargas MD [address] [address] Phone: tel: fax: Referral ID Status Reason Start Date Expiration Date V isits Requested Visits Authorized [id number] Authorized 10/20/2024 04/21/2026 1 91 Encounter Details Date Type Department Care Team (Latest Contact Info) Description 12/19/2024 8:30 AM EDT - 12/19/2024 11:59 PM EDT Hospital Encounter [facility] Infusion Clinic [address] [place] [phone] Myelodysplasia (myelodysplastic syndrome) (CMS/HCC) (Primary Dx) Discharge [...] first t manav in the morning (EYE-MANAGER PRODUCT MANAGEMENT) to steady your nerves or to get [...] 5 MG tabletIndications :Coronary artery disease involving [place] heart with angina pectoris, unspecified vessel [...] constipation. 30 tablet 3 10/23/2024 HYDROcodone-aceta minophen ([place]) 5-325 MG tablet Take 1 tablet by [...] MG SL tabletIndications :Coronary artery disease involving [place] heart with angina pectoris, unspecified vessel [...] Upcoming Encounters Date Type Department Care Team ([facility] Contact Info) Description 01/06/2025 8:30 AM EDT Clinical Support [facility] Hematology/BMT and Cellular Therapy Program [address] [phone] 01/06/2025 9:00 AM EDT Procedure Visit [facility] Hematology/BMT and Cellular Therapy Program [address] [address] Kierra Novak, PEOPLESOFT HRMS DEVELOPER 800 [facility] [address] [place] [phone] 01/13/2025 9:30 AM EDT Clinical Support [facility] Hematology/BMT and Cellular Therapy Program [address] [address] 01/13/2025 10:00 AM EDT Office Visit [facility] Hematology/BMT and Cellular Therapy Program [address] [place] [phone] Isaura Wynn, PEOPLESOFT HRMS DEVELOPER 800 [facility] [address] [place] [address] 01/13/2025 11:30 AM EDT Appointment [facility] Infusion [address] [place] [address] 01/14/2025 2:00 PM EDT Appointment [facility] [address] [place] [phone] 01/15/2025 2:00 PM EDT Appointment [facility] [address] [place] [phone] 01/16/2025 2:00 PM EDT Appointment [facility] [address] [place] [phone] 01/17/2025 2:00 PM EDT Appointment [facility] [address] [place] [address] 01/18/2025 2:00 PM EDT Appointment [facility] [address] [place] [address] 01/19/2025 2:00 PM EDT Appointment [facility] [address] [place] [address] 03/10/2025 11:20 AM EDT Office Visit [facility] Head[facility] Respiratory 800 [facility], [address]nd [place] [phone] Elsa Razo, [employer] HRMS DEVELOPER [address] [place] [phone] documented as of this encounter Visit Diagnoses [...] Sun12/19/24 at 0900, RoutineIndications:Myelodyspla haim (myelodysplastic syndrome) ([facility]) Given 12/19/2024 8:41 AM EDT 16 [...] documented as of this encounter Care Teams Sketch Maker Relationship Specialty Start Date End Date Zhao Harris MD [address] [place] [address] PCP - General 12/03/20 documented as of this encounter
--- OUTSIDE RECORDS SUMMARY | 2024-12-20 08:08 | XMS_ITS | Encounter Summary ---
Author Organization [facility] Address [address] [place] [address] Care Team Providers Care Rn Cardiac Name Role Phone Zhao Harris MD Primary Care Provider + [phone] Reason for Visit * Episode Based Medications (Routine) - Authorized Specialty Diagnoses / Procedures Referred By Justice mcgee Referred To Contact Diagnoses Myelodysplasia (myelodysplastic syndrome) (CMS/HCC) Procedures Azacitidine Daily x 7 / Venetoclax Every 28 Days Virgen Vargas MD [address] [place] [phone] Phone: tel: fax: Virgen Vargas MD [address] [phone] Phone: tel: fax: Referral ID Status Reason Start Date Expiration Date V isits Requested Visits Authorized [id number] Authorized 10/20/2024 04/21/2026 1 91 Encounter Details Date Type Department Care Team (Latest Contact Info) Description 12/20/2024 8:08 AM EDT - 12/20/2024 11:59 PM EDT Hospital Encounter [facility] Infusion Clinic 1 [address] [place] [phone] Myelodysplasia (myelodysplastic syndrome) (CMS/HCC) (Primary Dx); Thrombocytopenia [...] drink first t manav in the morning (EYE-PRICING ANALYST) to steady your nerves or to get [...] 5 MG tabletIndications :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, unspecified vessel or [...] Upcoming Encounters Date Type Department Care Team ([facility] st Contact Info) Description 01/06/2025 8:30 AM EDT Clinical Support [facility] Hematology/BMT and Cellular Therapy Program [address] [phone] 01/06/2025 9:00 AM EDT Procedure Visit [facility] Hematology/BMT and Cellular Therapy Program [address] [phone] Kierra Novak, CERTIFICATION OFFICER 800 [facility] [address] [place] [phone] 01/13/2025 9:30 AM EDT Clinical Support [facility] Hematology/BMT and Cellular Therapy Program 750 [facility] [place] [address] 01/13/2025 10:00 AM EDT Office Visit [facility] Hematology/BMT and Cellular Therapy Program 750 [facility] [place] [address] Isaura Wynn, CERTIFICATION OFFICER 800 [facility] [address] [place] [phone] 01/13/2025 11:30 AM EDT Appointment [facility] H Infusion [address] [place] [address] 01/14/2025 2:00 PM EDT Appointment [facility] H Infusion 800 [place] [address] 01/15/2025 2:00 PM EDT Appointment [facility] H Infusion 800 [place] [address] 01/16/2025 2:00 PM EDT Appointment [facility] H Infusion [address] [place] [address] 01/17/2025 2:00 PM EDT Appointment [facility] H Infusion [address] [place] [address] 01/18/2025 2:00 PM EDT Appointment [facility] H Infusion 800 [place] [address] 01/19/2025 2:00 PM EDT Appointment [facility] H Infusion [address] [place] [address] 03/10/2025 11:20 AM EDT Office Visit Pav CC Head, Neck & Respiratory 800 [facility], [address]nd [place] [address] Elsa Razo, CERTIFICATION OFFICER 800 [place] [phone] documented as of this encounter Procedures Procedure [...] ORDERABLE S Final Result Performing Organization Address City/State/[facility] Co de Phone Number BLOOD BANK [address] * Prepare Leukocyte Reduced RBC: 1 Units, Irradiated (12/20/2024 10:01 AM EDT) Product Code [id number] BLOO D BANK Dispense Status Transfused BLOOD BANK Blood Expiration Date [id number] BLOOD BANK Unit Number [id number] CH B LOOD BANK Product Blood Type 9500 BLOOD BANK Blood Type O- BLOOD BANK Crossmatch Compatible BLOOD BANK Other us Kayli CHIU BLOOD BANK PRODUCT ORDER VIKAS Final Result BLOOD BANK 800 [place] [address], * (ABNORMAL) CBC and differential (12/20/2024 9:00 AM EDT) WBC Count 0.59(LL) 3.70 - 10.30 10*3/uL LAB HEMATOLOGY METHOD 12/20/2024 10:25 AM EDT [facility] RBC Count 2.46(L) 4.60 - 6.10 10*6/uL LAB HEMATOLOGY METHOD 12/20/2024 10:25 AM EDT [facility] HGB 7.8(L) 13.7 - 17.5 g/dL LAB HEMATOLOGY METHOD 12/20/2024 10:25 AM EDT [facility] HCT 22.0(L) 40.0 - 51.0 % LAB HEMATOLOGY METHOD 12/20/2024 10:25 AM EDT [facility] Platelet Count 22(L) 155 - 369 10*3/uL LAB HEMATOLOGY METHOD 12/20/2024 10:25 AM EDT [facility] MCV 89 79 - 98 fL LAB HEMATOLOGY METHOD 12/20/2024 10:25 AM EDT [facility] MCH 31.7 26.0 - 32.0 pg LAB HEMATOLOGY METHOD 12/20/2024 10:25 AM EDT [facility] MCHC 35.5 30.7 - 35.5 g/dL LAB HEMATOLOGY METHOD 12/20/2024 10:25 AM EDT [facility] RDW 16.0(H) 11.5 - 14.5 % LAB HEMATOLOGY METHOD 12/20/2024 10:25 AM EDT [facility] MPV 11.3 8.8 - 12.5 fL LAB HEMATOLOGY METHOD 12/20/2024 10:25 AM EDT [facility] nRBC 0.0 <=0.0 per 100 WBCs LAB HEMATOLOGY METHOD 12/20/2024 10:25 AM EDT [facility] Differential Type Automated LAB HEMATOLOGY METHOD 12/20/2024 10:25 AM EDT [facility] Neutrophils % 5 % LAB HEMATOLOGY METHOD 12/20/2024 10:25 AM EDT [facility] Lymphocytes % 92 % LAB HEMATOLOGY METHOD 12/20/2024 10:25 AM EDT [facility] Monocytes % 3 % LAB HEMATOLOGY METHOD 12/20/2024 10:25 AM EDT [facility] Eosinophils % 0 % LAB HEMATOLOGY METHOD 12/20/2024 10:25 AM EDT [facility] Basophils % 0 % LAB HEMATOLOGY METHOD 12/20/2024 10:25 AM EDT [facility] Immature Granulocytes % 0 % LAB HEMATOLOGY METHOD 12/20/2024 10:25 AM EDT [facility] Neutrophils Absolute 0.03(LL) 1.60 - 6.10 10*3/uL LAB HEMATOLOGY METHOD 12/20/2024 10:25 AM EDT [facility] Lymphocytes Absolute 0.54(L) 1.20 - 3.90 10*3/uL LAB HEMATOLOGY METHOD 12/20/2024 10:25 AM EDT [facility] Monocytes Absolute 0.02(L) 0.30 - 0.90 10*3/uL LAB HEMATOLOGY METHOD 12/20/2024 10:25 AM EDT [facility] Eosinophils Absolute 0.00 0.00 - 0.50 10*3/uL LAB HEMATOLOGY METHOD 12/20/2024 10:25 AM EDT [facility] Basophils Absolute 0.00 0.00 - 0.10 10*3/uL LAB HEMATOLOGY METHOD 12/20/2024 10:25 AM EDT [facility] Immature Granulocytes Absolute 0.00 0.00 - 0.06 10*3/uL LAB HEMATOLOGY METHOD 12/20/2024 10:25 AM EDT [facility] Blood Blood sample taken from central line / Unknown (Central Line) Existing Catheter / Unknown 12/20/2024 9:00 AM EDT 12/20/2024 9:13 AM EDT Narrative [facility] - 12/20/2024 10:25 AM EDT Therapeutic decision making should be based on absolute values, rather than percentages. us Christina Ramos MD LAB BLOOD ORDERABLES Final Resul t [facility] [address] [place] [address] documented in this encounter Visit Diagnoses Diagnosis [...] documented as of this encounter Care Teams Rn Cardiac Relationship Specialty Start Date End Date Zhao Harris MD [address] [place] [address] PCP - General 12/03/20 documented as of this encounter
--- OUTSIDE RECORDS SUMMARY | 2024-12-21 08:30 | XMS_ITS | Encounter Summary ---
Author Organization [facility] Address [address] [place] [address] Care Team Providers Care Senior Enterprise Architect Name Role Phone Zhao Harris MD Primary Care Provider + [phone] Reason for Visit * Episode Based Medications (Routine) - Authorized Specialty Diagnoses / Procedures Referred By Justice mcgee Referred To Contact Diagnoses Myelodysplasia (myelodysplastic syndrome) (CMS/HCC) Procedures Azacitidine Daily x 7 / Venetoclax Every 28 Days Virgen Vargas MD [address] [address] Phone: tel: fax: Virgen Vargas MD [address] [address] Phone: tel: fax: Referral ID Status Reason Start Date Expiration Date V isits Requested Visits Authorized [id number] Authorized 10/20/2024 04/21/2026 1 91 Encounter Details Date Type Department Care Team (Latest Contact Info) Description 12/21/2024 8:30 AM EDT - 12/21/2024 11:59 PM EDT Hospital Encounter [facility] Infusion Clinic 1 [address] [place] [phone] Myelodysplasia (myelodysplastic syndrome) (CMS/HCC) (Primary Dx) Discharge [...] drink first t manav in the morning (EYE-WAXING MACHINE OPERATOR HELPER) to steady your nerves [...] 5 MG tabletIndications :Coronary artery disease involving [place] heart with angina pectoris, unspecified vessel [...] constipation. 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 pectoris, unspecified vessel [...] Encounters Date Type Department Care Team ([facility] Contact Info) Description 01/06/2025 8:30 AM EDT Clinical Support [facility] Hematology/BMT and Cellular Therapy Program [address] [place] [phone] 01/06/2025 9:00 AM EDT Procedure Visit [facility] Hematology/BMT and Cellular Therapy Program [address] [address] Kierra Novka, PARTS SALESMAN 800 [facility] [address] [place] [phone] 01/13/2025 9:30 AM EDT Clinical Support [facility] Hematology/BMT and Cellular Therapy Program [address] [address] 01/13/2025 10:00 AM EDT Office Visit [facility] Hematology/BMT and Cellular Therapy Program [address] [phone] Isaura Wynn, PARTS SALESMAN 800 [facility] [address] [place] [phone] 01/13/2025 11:30 AM EDT Appointment [facility] H Infusion 800 [place] [phone] 01/14/2025 2:00 PM EDT Appointment [facility] H Infusion [address] [place] [phone] 01/15/2025 2:00 PM EDT Appointment [facility] H Infusion [address] [place] [address] 01/16/2025 2:00 PM EDT Appointment [facility] H Infusion [address] [place] [address] 01/17/2025 2:00 PM EDT Appointment [facility] H Infusion [address] [place] [phone] 01/18/2025 2:00 PM EDT Appointment [facility] H Infusion [address] [place] [address] 01/19/2025 2:00 PM EDT Appointment [facility] H Infusion 800 [place] [phone] 03/10/2025 11:20 AM EDT Office Visit [facility] Head, Neck & Respiratory 800 [facility], 2nd [place] [phone] Elsa Razo, PARTS SALESMAN 800 [place] [phone] documented as of this encounter Visit Diagnoses [...] as of this encounter Care Teams Senior Enterprise Architect Relationship Specialty Start Date End Date Zhao Harris MD [address] [place] [address] PCP - General 12/03/20 documented as of this encounter
--- OUTSIDE RECORDS SUMMARY | 2024-12-22 08:24 | XMS_ITS | Encounter Summary ---
Author Organization [facility] Address [address] [place] [address] Care Team Providers Care Latex Fashions Designer Name Role Phone Zhao Harris MD Primary Care Provider + [phone] Reason for Visit * Episode Based Medications (Routine) - Authorized Specialty Diagnoses / Procedures Referred By Justice mcgee Referred To Contact Diagnoses Myelodysplasia (myelodysplastic syndrome) (CMS/HCC) Procedures Azacitidine Daily x 7 / Venetoclax Every 28 Days Virgen Vargas MD 800 [facility] [address] [address] Phone: tel: fax: Virgen Vargas MD [address] [address] Phone: tel: fax: Referral ID Status Reason Start Date Expiration Date V isits Requested Visits Authorized [id number] Authorized 10/20/2024 04/21/2026 1 91 Encounter Details Date Type Department Care Team (Latest Contact Info) Description 12/22/2024 8:24 AM EDT - 12/22/2024 9:57 AM EDT Hospital Encounter [facility] H Infusion [address] [place] [phone] Myelodysplasia (myelodysplastic syndrome) (CMS/HCC) (Primary Dx); Thrombocytopenia [...] drink first t manav in the morning (EYE-GRADUATE RESEARCH ASSISTANT) to steady your nerves or to [...] 5 MG tabletIndications :Coronary artery disease involving [place] heart with angina pectoris, unspecified vessel or [...] constipation. 30 tablet 3 10/23/2024 HYDROcodone-aceta minophen ([place]) 5-325 MG tablet Take 1 tablet by [...] MG SL tabletIndications :Coronary artery disease involving [place] heart with angina pectoris, unspecified vessel or [...] ([facility] st Contact Info) Description 01/06/2025 8:30 AM EDT Clinical Support [facility] Hematology/BMT and Cellular Therapy Program [address] [phone] 01/06/2025 9:00 AM EDT Procedure Visit [facility] Hematology/BMT and Cellular Therapy Program [address] [phone] Kierra Novak, RESEARCH PHYSIOLOGIST 800 [facility] [address] [place] [phone] 01/13/2025 9:30 AM EDT Clinical Support P[facility] CC Hematology/BMT and Cellular Therapy Program 750 [facility] [place] [address] 01/13/2025 10:00 AM EDT Office Visit PAV CC Hematology/BMT and Cellular Therapy Program 750 [facility], [address] [place] [phone] Isaura Wynn, RESEARCH PHYSIOLOGIST 800 [facility] [address] [place] [phone] 01/13/2025 11:30 AM EDT Appointment [facility] H Infusion [address] [place] [address] 01/14/2025 2:00 PM EDT Appointment [facility] H Infusion [address] [place] [address] 01/15/2025 2:00 PM EDT Appointment [facility] H Infusion [address] [place] [address] 01/16/2025 2:00 PM EDT Appointment [facility] H Infusion [address] [place] [address] 01/17/2025 2:00 PM EDT Appointment [facility] H Infusion [address] [place] [address] 01/18/2025 2:00 PM EDT Appointment [facility] H Infusion [address] [place] [address] 01/19/2025 2:00 PM EDT Appointment [facility] H Infusion [address] [place] [address] 03/10/2025 11:20 AM EDT Office Visit Pav CC Head, Neck & Respiratory 800 [facility], [address]nd [place] [address] Elsa Razo, RESEARCH PHYSIOLOGIST [address] [place] [phone] documented as of this encounter Procedures Procedure [...] (ABNORMAL) Platelet count (12/22/2024 10:57 AM EDT) [facility] Platelet Count 36(L) 155 - 369 10*3/uL LAB HEMATOLOGY METHOD 12/22/2024 11:14 AM EDT [facility] Blood Venous blood specimen / Unknown Venipuncture / Unknown 12/22/2024 10:57 AM EDT 12/22/2024 11:04 AM EDT Virgen Vargas MD LAB BLOOD ORDERABLES Final Re sult [facility] [address] [place] [address] * Prepare Leukocyte Reduced Platelets: 1 Units (12/22/2024 9:44 AM EDT) [facility] Product Code [id number] CH BLOO D BANK Dispense Status Transfused BLOOD BANK Blood Expiration Date [id number] BLOOD BANK Unit Number [id number] CH B LOOD BANK Product Blood Type 0600 BLOOD BANK Blood Type A- CH BLOOD BANK Blood Venous blood specimen / Unknown us Kayli CHIU BLOOD BANK PRODUCT ORDER VIKAS Final Result BLOOD BANK [address] [place] [address], * (ABNORMAL) CBC and Differential (12/22/2024 8:53 AM EDT) WBC Count 0.50(LL) 3.70 - 10.30 10*3/uL LAB HEMATOLOGY METHOD 12/22/2024 11:33 AM EDT [facility] RBC Count 2.90(L) 4.60 - 6.10 10*6/uL LAB HEMATOLOGY METHOD 12/22/2024 11:33 AM EDT [facility] HGB 8.9(L) 13.7 - 17.5 g/dL LAB HEMATOLOGY METHOD 12/22/2024 11:33 AM EDT [facility] HCT 25.0(L) 40.0 - 51.0 % LAB HEMATOLOGY METHOD 12/22/2024 11:33 AM EDT [facility] Platelet Count 5(LL) 155 - 369 10*3/uL LAB HEMATOLOGY METHOD 12/22/2024 11:33 AM EDT [facility] MCV 86 79 - 98 fL LAB HEMATOLOGY METHOD 12/22/2024 11:33 AM EDT [facility] MCH 30.7 26.0 - 32.0 pg LAB HEMATOLOGY METHOD 12/22/2024 11:33 AM EDT [facility] MCHC 35.6(H) 30.7 - 35.5 g/dL LAB HEMATOLOGY METHOD 12/22/2024 11:33 AM EDT [facility] RDW 15.6(H) 11.5 - 14.5 % LAB HEMATOLOGY METHOD 12/22/2024 11:33 AM EDT [facility] MPV LAB HEMATOLOGY METHOD 12/22/2024 11:33 AM EDT [facility] Comment:Not Measured nRBC 0.0 <=0.0 per 100 WBCs LAB HEMATOLOGY METHOD 12/22/2024 11:33 AM EDT [facility] Differential Type Automated LAB HEMATOLOGY METHOD 12/22/2024 11:33 AM EDT [facility] Neutrophils % 12 % LAB HEMATOLOGY METHOD 12/22/2024 11:33 AM EDT [facility] Lymphocytes % 86 % LAB HEMATOLOGY METHOD 12/22/2024 11:33 AM EDT [facility] Monocytes % 2 % LAB HEMATOLOGY METHOD 12/22/2024 11:33 AM EDT [facility] Eosinophils % 0 % LAB HEMATOLOGY METHOD 12/22/2024 11:33 AM EDT [facility] Basophils % 0 % LAB HEMATOLOGY METHOD 12/22/2024 11:33 AM EDT [facility] Immature Granulocytes % 0 % LAB HEMATOLOGY METHOD 12/22/2024 11:33 AM EDT [facility] Neutrophils Absolute 0.06(LL) 1.60 - 6.10 10*3/uL LAB HEMATOLOGY METHOD 12/22/2024 11:33 AM EDT [facility] Lymphocytes Absolute 0.43(L) 1.20 - 3.90 10*3/uL LAB HEMATOLOGY METHOD 12/22/2024 11:33 AM EDT [facility] Monocytes Absolute 0.01(L) 0.30 - 0.90 10*3/uL LAB HEMATOLOGY METHOD 12/22/2024 11:33 AM EDT [facility] Eosinophils Absolute 0.00 0.00 - 0.50 10*3/uL LAB HEMATOLOGY METHOD 12/22/2024 11:33 AM EDT [facility] Basophils Absolute 0.00 0.00 - 0.10 10*3/uL LAB HEMATOLOGY METHOD 12/22/2024 11:33 AM EDT [facility] Immature Granulocytes Absolute 0.00 0.00 - 0.06 10*3/uL LAB HEMATOLOGY METHOD 12/22/2024 11:33 AM EDT [facility] Blood Venous blood specimen / Unknown Venipuncture / Unknown 12/22/2024 8:53 AM EDT 12/22/2024 8:59 AM EDT [facility] - 12/22/2024 11:33 AM EDT Therapeutic decision making should be based on absolute values, rather than percentages. us Virgen Vargas MD LAB BLOOD ORDERABLES Final Re sult [facility] [address] [place] [address] * (ABNORMAL) Comprehensive Metabolic Panel, Plasma (12/22/2024 8:53 AM EDT) Glucose, Plasma 107(H) 74 - 99 mg/dL 12/22/2024 9:29 AM EDT [facility] BUN, Plasma 14 8 - 23 mg/dL 12/22/2024 9:29 AM EDT [facility] Creatinine, Plasma 0.93 0.70 - 1.20 mg/dL 12/22/2024 9:29 AM EDT [facility] BUN/Creatinine Ratio 15 12/22/2024 9:29 AM EDT [facility] Sodium, Plasma 136 136 - 145 mmol/L 12/22/2024 9:29 AM EDT [facility] Potassium, Plasma 4.3 3.6 - 4.9 mmol/L 12/22/2024 9:29 AM EDT [facility] Chloride, Plasma 106 97 - 107 mmol/L 12/22/2024 9:29 AM EDT [facility] CO2, Plasma 22 22 - 29 mmol/L 12/22/2024 9:29 AM EDT [facility] Anion Gap 8 6 - 16 mmol/L 12/22/2024 9:29 AM EDT [facility] Total Calcium, Plasma 9.1 8.9 - 10.2 mg/dL 12/22/2024 9:29 AM EDT [facility] Total Protein 7.0 6.3 - 7.9 g/dL 12/22/2024 9:29 AM EDT [facility] Albumin, Plasma 3.9 3.5 - 5.2 g/dL 12/22/2024 9:29 AM EDT [facility] AST, Plasma 16 10 - 50 U/L 12/22/2024 9:29 AM EDT [facility] ALT, Plasma 12 10 - 50 U/L 12/22/2024 9:29 AM EDT [facility] Alkaline Phosphatase, Plasma 83 40 - 115 U/L 12/22/2024 9:29 AM EDT [facility] Total Bilirubin, Plasma 0.7 0.2 - 1.1 mg/dL 12/22/2024 9:29 AM EDT [facility] eGFRcr 88.9 mL/min/1.7 3m*2 12/22/2024 9:29 AM EDT [facility] Comment:Reported eGFRcr in m L/min/1.73m2 is based the CKD-EPI 2020 equation that does not use a race coefficient. Blood Venous blood specimen / Unknown Venipuncture / Unknown 12/22/2024 8:53 AM EDT 12/22/2024 8:59 AM EDT us Virgen Vargas MD LAB BLOOD ORDERABLES Final Re sult [facility] [address] [place] [address] documented in this encounter Visit Diagnoses Diagnosis [...] documented as of this encounter Care Teams Latex Fashions Designer Relationship Specialty Start Date End Date Zhao Harris MD [address] [place] [address] PCP - General 12/03/20 documented as of this encounter
--- OUTSIDE RECORDS SUMMARY | 2024-12-22 09:58 | XMS_ITS | Encounter Summary ---
Author Organization Healthcare Address [address] [place] [address] Care Team Providers Care High Density Finishing Operator Name Role Phone Zhao Harris MD Primary Care Provider [phone] Encounter Details Date Type Department Care Team (Latest Contact Info) Description 12/22/2024 9:58 AM EDT - 12/22/2024 11:59 PM EDT Hospital Encounter [facility] [address] [place] [address] Myelodysplasia (myelodysplastic syndrome) (CMS/HCC) (Primary Dx) Discharge [...] drink first t manav in the morning (EYE-CELL COVERER) to steady your nerves or to get [...] 5 MG tabletIndications :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, unspecified vessel or [...] Hematology/BMT and Cellular Therapy Program [address] [address] 01/06/2025 9:00 AM EDT Procedure Visit [facility] Hematology/BMT and Cellular Therapy Program [address] [phone] Kierra Novak, MACHINE DYER 800 [facility] [address] [place] [phone] 01/13/2025 9:30 AM EDT Clinical Support [facility] Hematology/BMT and Cellular Therapy Program [address] [phone] 01/13/2025 10:00 AM EDT Office Visit [facility] Hematology/BMT and Cellular Therapy Program [address] [phone] Isaura Wynn, MACHINE DYER 800 [facility] [address] [place] [phone] 01/13/2025 11:30 AM EDT Appointment [facility] 800 [place] [phone] 01/14/2025 2:00 PM EDT Appointment [facility] 800 [place] [address] 01/15/2025 2:00 PM EDT Appointment [facility] 800 [place] [address] 01/16/2025 2:00 PM EDT Appointment [facility] 800 [place] [address] 01/17/2025 2:00 PM EDT Appointment [facility] 800 [place] [phone] 01/18/2025 2:00 PM EDT Appointment [facility] 800 [place] [address] 01/19/2025 2:00 PM EDT Appointment [facility] 800 [place] [address] 03/10/2025 11:20 AM EDT Office Visit Pav [facility] Head, Neck & Respiratory 800 [facility], 2nd [place] [phone] Elsa Razo, MACHINE DYER 800 [place] [address] documented as of this encounter Visit Diagnoses [...] as of this encounter Care Teams High Density Finishing Operator Relationship Specialty Start Date End Date Zhao Harris MD 1210 [facility] [address], [place] [address] PCP - General 12/03/20 documented as of this encounter
[2025-01-05] VITALS (26 sets, daily range): BP systolic 112–145; BP diastolic 64–79; PULSE 64–73; RESP 17–19; TEMP 36.6–36.8; O2SAT 99–100; BMI 31.3
--- OUTSIDE RECORDS SUMMARY | 2025-01-05 08:21 | XMS_ITS | Encounter Summary ---
Author Organization [facility] Address [address] [place] [address] Care Team Providers Care Fibre Cement Moulder Name Role Phone Zhao Harris MD Primary Care Provider [phone] Encounter Details Date Type Department Care Team (Late st Contact Info) Description 12/04/2024 [facility]phone [facility] [address] [place] [address] Martha William Social History Tobacco [...] first t manav in the morning (EYE-MEDICAL PROFESSIONALS) to steady your nerves or to get [...] they need to bandage it. Requesting CB@ [phone] documented in this encounter Plan of Treatment Upcoming Encounters Date Type Department Care Team (Late st Contact Info) Description 01/06/2025 8:30 AM EDT Clinical Support [facility] CC Hematology/BMT and Cellular Therapy Program [address] [place] [address] [place] [address] 01/06/2025 9:00 AM EDT Procedure Visit [facility] Hematology/BMT and Cellular Therapy Program [address] [place] [address] [place] [address] Kierra Novak, LAUNCH STEWARD 800 [facility] [address] [place] [phone] 01/13/2025 9:30 AM EDT Clinical Support [facility] Hematology/BMT and Cellular Therapy Program [address] [place] [phone] 01/13/2025 10:00 AM EDT Office Visit P[facility] CC Hematology/BMT and Cellular Therapy Program [address] [phone] Isaura Wynn, LAUNCH STEWARD 800 [facility] [address] [place] [phone] 01/13/2025 11:30 AM EDT Appointment [facility] Infusion 800 [place] [address] 01/14/2025 2:00 PM EDT Appointment [facility] 800 [place] [address] 01/15/2025 2:00 PM EDT Appointment [facility] 800 [place] [address] 01/16/2025 2:00 PM EDT Appointment [facility] 800 [place] [address] 01/17/2025 2:00 PM EDT Appointment [facility] 800 [place] [address] 01/18/2025 2:00 PM EDT Appointment [facility] 800 [place] [address] 01/19/2025 2:00 PM EDT Appointment [facility] 800 [place] [address] 03/10/2025 11:20 AM EDT Office Visit Pav CC Head, Neck & Respiratory 800 [facility], 2nd [place] [address] Elsa Razo, LAUNCH STEWARD 800 [place] [address] documented as of this encounter Visit Diagnoses [...] documented as of this encounter Care Teams Fibre Cement Moulder Relationship Specialty Start Date End Date Zhao Harris MD 1210 [facility] [address], [place] [address] PCP - General 12/03/20 documented as of this encounter
--- OUTSIDE RECORDS SUMMARY | 2025-01-05 08:21 | XMS_ITS | Encounter Summary ---
Author Organization [facility] Address [address] [place] [address] Care Team Providers Care Bridge Game Director Name Role Phone Zhao Harris MD Primary Care Provider [phone] Encounter Details Date Type Department Care Team [...] drink first t manav in the morning (EYE-BALE OPENER) to steady your nerves or to get [...] Upcoming Encounters Date Type Department Care Team ([facility] st Contact Info) Description 01/06/2025 8:30 AM EDT Clinical Support P[facility] CC Hematology/BMT and Cellular Therapy Program [address] [phone] 01/06/2025 9:00 AM EDT Procedure Visit [facility] CC Hematology/BMT and Cellular Therapy Program [address] [phone] Kierra Novak, ADMISSION NURSE COORDINATOR 800 [facility] [address] [place] [phone] 01/13/2025 9:30 AM EDT Clinical Support [facility] CC Hematology/BMT and Cellular Therapy Program [address] [address] 01/13/2025 10:00 AM EDT Office Visit [facility] CC Hematology/BMT and Cellular Therapy Program [address] [phone] Isaura Wynn, ADMISSION NURSE COORDINATOR 800 [facility] [address] [place] [phone] 01/13/2025 11:30 AM EDT Appointment [facility]fusion 800 [place] [phone] 01/14/2025 2:00 PM EDT Appointment [facility] 800 [place] [phone] 01/15/2025 2:00 PM EDT Appointment [facility] 800 [place] [phone] 01/16/2025 2:00 PM EDT Appointment [facility] 800 [place] [address] 01/17/2025 2:00 PM EDT Appointment [facility] 800 [place] [address] 01/18/2025 2:00 PM EDT Appointment [facility] 800 [place] [address] 01/19/2025 2:00 PM EDT Appointment [facility] 800 [place] [address] 03/10/2025 11:20 AM EDT Office Visit Pav CC Head, Neck & Respiratory 800 [facility], 2nd [place] [address] Elsa Razo, ADMISSION NURSE COORDINATOR 800 [place] [address] documented as of this encounter Visit Diagnoses [...] documented as of this encounter Care Teams Bridge Game Director Relationship Specialty Start Date End Date Zhao Harris MD [address] [place] [address] [id number] PCP - General 12/03/20 documented as of this encounter
--- OUTSIDE RECORDS SUMMARY | 2025-01-05 08:21 | XMS_ITS | Encounter Summary ---
Author Organization [facility] Address [address] [place] [address] Care Team Providers Care Flat Optical Element Maker Name Role Phone Zhao Harris MD Primary Care Provider [phone] Encounter Details Date Type Department Care Team [...] first t manav in the morning (EYE-PEDIATRIC INTENSIVE PHYSICIAN) to steady your nerves or to [...] Team ([facility] Contact Info) Description 01/06/2025 8:30 AM EDT Clinical Support P[facility] CC Hematology/BMT and Cellular Therapy Program [address] [place] [phone] 01/06/2025 9:00 AM EDT Procedure Visit P[facility] CC Hematology/BMT and Cellular Therapy Program [address] [place] [phone] Kierra Novak, ENGINEERING DIRECTOR 800 [facility] [address] [place] [phone] 01/13/2025 9:30 AM EDT Clinical Support [facility] CC Hematology/BMT and Cellular Therapy Program [address] [place] [phone] 01/13/2025 10:00 AM EDT Office Visit [facility] CC Hematology/BMT and Cellular Therapy Program [address] [place] [phone] Isaura Wynn, ENGINEERING DIRECTOR 800 [facility] [address] [place] [phone] 01/13/2025 11:30 AM EDT Appointment [facility]fusion 800 [place] [address] 01/14/2025 2:00 PM EDT Appointment [facility] [address] [place] [address] 01/15/2025 2:00 PM EDT Appointment [facility] 800 [place] [address] 01/16/2025 2:00 PM EDT Appointment [facility] [address] [place] [address] 01/17/2025 2:00 PM EDT Appointment [facility] [address] [place] [address] 01/18/2025 2:00 PM EDT Appointment [facility] 800 [place] [address] 01/19/2025 2:00 PM EDT Appointment [facility]fusion 800 [place] [address] 03/10/2025 11:20 AM EDT Office Visit Pav CC Head, Neck & Respiratory 800 [facility], 2nd [place] [address] Elsa Razo, ENGINEERING DIRECTOR 800 [place] [address] documented as of this encounter Visit Diagnoses [...] documented as of this encounter Care Teams Flat Optical Element Maker Relationship Specialty Start Date End Date Zhao Harris MD [address] [phone] PCP - General 12/03/20 documented as of this encounter
--- OUTSIDE RECORDS SUMMARY | 2025-01-05 08:21 | XMS_ITS ---
Author Organization [facility] Address [address] [place] [address] Care Team Providers Care Varnish Mixer Name Role Phone Zhao Harris MD Primary Care Provider [phone] Active Problems Problem Noted Date Diagnosed Date [...] syndrome) (CMS/HCC) Treatment Medications Current Day (Day 2 2, Cycle 3 - Planned for 01/06/2025) Next Day (Day 24, Cycle 3 - Planned for 01/08/2025) azaCITIDine (Vidaza)azaCITID ine (Vidaza) IVPBvenetoclax (Venclexta) No medications scheduled. No medications scheduled. HEM/BMT Blood Administration for Outpatient* Plan Start Date:10/22/2024 Plan Provider:Kayli Ospina PA Linked Problems Myelodysplasia (myelodysplas tic syndrome) ([facility]/HCC)Thrombocytopenia (CMS/HCC) Treatment Medications No medications scheduled. Past [...]
--- OUTSIDE RECORDS SUMMARY | 2025-01-05 08:21 | XMS_ITS | Encounter Summary ---
Author Organization [facility] Address [address] [place] [address] Care Team Providers Care Resident Care Provider Name Role Phone Zhao Harris MD Primary Care Provider [phone] Encounter Details Date Type Department Care Team [...] first t manav in the morning (EYE-SENIOR HEALTH CONSULTANT) to steady your nerves or to [...] Encounters Date Type Department Care Team ([facility] st Contact Info) Description 01/06/2025 8:30 AM EDT Clinical Support PAV CC Hematology/BMT and Cellular Therapy Program [address] [phone] 01/06/2025 9:00 AM EDT Procedure Visit P[facility] CC Hematology/BMT and Cellular Therapy Program [address] [phone] Kierra Novak, SUPERVISOR PAINTING SHIPYARD 800 [facility] [address] [place] [phone] 01/13/2025 9:30 AM EDT Clinical Support P[facility] CC Hematology/BMT and Cellular Therapy Program [address] [address] 01/13/2025 10:00 AM EDT Office Visit P[facility] CC Hematology/BMT and Cellular Therapy Program [address] [phone] Isaura Wynn, SUPERVISOR PAINTING SHIPYARD 800 [facility] [address] [place] [phone] 01/13/2025 11:30 AM EDT Appointment [facility] H Infusion 800 [place] [phone] 01/14/2025 2:00 PM EDT Appointment [facility] Infusion 800 [place] [phone] 01/15/2025 2:00 PM EDT Appointment [facility] Infusion 800 [place] [phone] 01/16/2025 2:00 PM EDT Appointment [facility] Infusion 800 [place] [phone] 01/17/2025 2:00 PM EDT Appointment [facility] Infusion 800 [place] [address] 01/18/2025 2:00 PM EDT Appointment [facility] Infusion 800 [place] [address] 01/19/2025 2:00 PM EDT Appointment [facility] Infusion 800 [place] [address] 03/10/2025 11:20 AM EDT Office Visit Pav CC Head, Neck & Respiratory 800 [facility], 2nd [place] [address] Elsa Razo, SUPERVISOR PAINTING SHIPYARD 800 [place] [address] documented as of this encounter Visit Diagnoses [...] as of this encounter Care Teams Resident Care Provider Relationship Specialty Start Date End Date Zhao Harris MD [address] [place] [address] [phone] PCP - General 12/03/20 documented as of this encounter
--- OUTSIDE RECORDS SUMMARY | 2025-01-05 08:21 | XMS_ITS | Encounter Summary ---
Author Organization [facility] Address [address] [place] [address] Care Team Providers Care Contour Sander Name Role Phone Zhao Harris MD Primary Care Provider [phone] Reason for Visit * Reason Comments Med Refill Encounter Details Date Type Department Care Team ([facility] st Contact Info) Description 01/01/2025 Refill [facility] [place] 800 [facility]. [address] [place] [address] Ra Best MD [address] [place] [address] Social History Tobacco Use Types Packs/Day Years [...] drink first t manav in the morning (EYE-UNDERWRITING SALES REPRESENTATIVE) to steady your nerves or [...] Upcoming Encounters Date Type Department Care Team ([facility] Contact Info) Description 01/06/2025 8:30 AM EDT Clinical Support PAV Hematology/BMT and Cellular Therapy Program [address] [place] [phone] 01/06/2025 9:00 AM EDT Procedure Visit PAV Hematology/BMT and Cellular Therapy Program [address] [place] [phone] Kierra Novak, MECHANIC SENIOR 800 [facility] [address] [place] [phone] 01/13/2025 9:30 AM EDT Clinical Support PAV Hematology/BMT and Cellular Therapy Program [address] [place] [phone] 01/13/2025 10:00 AM EDT Office Visit PAV Hematology/BMT and Cellular Therapy Program [address] [place] [phone] Isaura Wynn, MECHANIC SENIOR 800 [facility] [address] [place] [address] [phone] 01/13/2025 11:30 AM EDT Appointment [facility] H Infusion 800 [place] [phone] 01/14/2025 2:00 PM EDT Appointment [facility] Infusion 800 [place] [phone] 01/15/2025 2:00 PM EDT Appointment [facility] Infusion 800 [place] [address] 01/16/2025 2:00 PM EDT Appointment [facility] Infusion 800 [place] [address] 01/17/2025 2:00 PM EDT Appointment [facility] H Infusion 800 [place] [address] 01/18/2025 2:00 PM EDT Appointment [facility] Infusion 800 [place] [address] 01/19/2025 2:00 PM EDT Appointment [facility] H Infusion 800 [place] [address] 03/10/2025 11:20 AM EDT Office Visit Pav CC Head, Neck & Respiratory 800 [facility], 2nd [place] [address] Elsa Razo, MECHANIC SENIOR 800 [place] [address] documented as of this encounter Visit Diagnoses [...] documented as of this encounter Care Teams Contour Sander Relationship Specialty Start Date End Date Zhao Harris MD [address] [address] PCP - General 12/03/20 documented as of this encounter
--- OUTSIDE RECORDS SUMMARY | 2025-01-05 08:21 | XMS_ITS | Encounter Summary ---
Author Organization [facility] Address [address] [place] [address] Care Team Providers Care Motor Adjuster Name Role Phone Zhao Harris MD Primary Care Provider [phone] Encounter Details Date Type Department Care Team [...] first t manav in the morning (EYE-OIL FIELD TECHNICIAN) to steady your nerves or to [...] ([facility] st Contact Info) Description 01/06/2025 8:30 AM EDT Clinical Support P[facility] CC Hematology/BMT and Cellular Therapy Program [address] [phone] 01/06/2025 9:00 AM EDT Procedure Visit P[facility] CC Hematology/BMT and Cellular Therapy Program [address] [phone] Kierra Novak, WALL WASHER 800 [facility] [address] [place] [phone] 01/13/2025 9:30 AM EDT Clinical Support [facility] CC Hematology/BMT and Cellular Therapy Program [address] [address] 01/13/2025 10:00 AM EDT Office Visit [facility] CC Hematology/BMT and Cellular Therapy Program [address] [phone] Isaura Wynn, WALL WASHER 800 [facility] [address] [place] [phone] 01/13/2025 11:30 AM EDT Appointment [facility] H Infusion 800 [place] [phone] 01/14/2025 2:00 PM EDT Appointment [facility] Infusion 800 [place] [address] 01/15/2025 2:00 PM EDT Appointment [facility] Infusion 800 [place] [phone] 01/16/2025 2:00 PM EDT Appointment [facility] Infusion 800 [place] [phone] 01/17/2025 2:00 PM EDT Appointment [facility] Infusion 800 [place] [address] 01/18/2025 2:00 PM EDT Appointment [facility] Infusion 800 [place] [address] 01/19/2025 2:00 PM EDT Appointment [facility] Infusion 800 [place] [address] 03/10/2025 11:20 AM EDT Office Visit Pav CC Head, Neck & Respiratory 800 [facility], 2nd [place] [address] Elsa Razo, WALL WASHER 800 [place] [address] documented as of this encounter Visit Diagnoses [...] documented as of this encounter Care Teams Motor Adjuster Relationship Specialty Start Date End Date Zhao Harris MD [address] [place] [address] [phone] PCP - General 12/03/20 documented as of this encounter
--- OUTSIDE RECORDS SUMMARY | 2025-01-05 08:21 | XMS_ITS | Encounter Summary ---
Author Organization [facility] Address [address] [place] [address] Care Team Providers Care Mechanical Striper Name Role Phone Zhao Harris MD Primary Care Provider [phone] Encounter Details Date Type Department Care Team ([facility] st Contact Info) Description 12/23/2024 Orders Only PAV CC Hematology/BMT and Cellular Therapy Program [address] [place] [address] [place] [address] Adam Conway RN [facility] HEMAT[facility]INIC Myelodysplasia (myelodysplastic syndrome) [...] drink first t manav in the morning (EYE-LINER REPLACER) to steady your nerves or to get [...] P[facility] CC Hematology/BMT and Cellular Therapy Program [address] [place] [phone] 01/06/2025 9:00 AM EDT Procedure Visit P[facility] CC Hematology/BMT and Cellular Therapy Program [address] [place] [phone] Kierra Novak, ELEVATOR EXAMINER 800 [facility] [address] [place] [phone] 01/13/2025 9:30 AM EDT Clinical Support P[facility] CC Hematology/BMT and Cellular Therapy Program [address] [place] [phone] 01/13/2025 10:00 AM EDT Office Visit [facility] Hematology/BMT and Cellular Therapy Program [address] [place] [phone] Isaura Wynn, ELEVATOR EXAMINER 800 [facility] [address] [place] [address] [phone] 01/13/2025 11:30 AM EDT Appointment [facility] Infusion 800 [place] [address] 01/14/2025 2:00 PM EDT Appointment [facility]fusion 800 [place] [phone] 01/15/2025 2:00 PM EDT Appointment [facility] Infusion 800 [place] [address] 01/16/2025 2:00 PM EDT Appointment [facility] 800 [place] [address] 01/17/2025 2:00 PM EDT Appointment [facility]fusion 800 [place] [address] 01/18/2025 2:00 PM EDT Appointment [facility]fusion 800 [place] [address] 01/19/2025 2:00 PM EDT Appointment [facility]fusion 800 [place] [address] 03/10/2025 11:20 AM EDT Office Visit Pav CC Head, Neck & Respiratory 800 [facility], 2nd [place] [address] Elsa Razo, ELEVATOR EXAMINER 800 [place] [address] Scheduled Orders Name Type Priority Associated Diagnoses Orde r Schedule CBC and Differential Lab Routine Myelodysplasia (myelodysplastic syndrome) (CMS/HCC) Expected: 01/06/2025, Expires: 06/26/2026 documented as of this encounter [...] documented as of this encounter Care Teams Mechanical Striper Relationship Specialty Start Date End Date Zhao Harris MD 1210 [facility] [address] [place] [address] PCP - General 12/03/20 documented as of this encounter
--- OUTSIDE RECORDS SUMMARY | 2025-01-05 08:21 | XMS_ITS | Encounter Summary ---
Author Organization [facility] Address [address] [place] [address] Care Team Providers Care Lineman A Class Name Role Phone Zhao Harris MD Primary Care Provider [phone] Encounter Details Date Type Department Care Team ([facility] st Contact Info) Description 12/09/2024 Telephone [facility] CC Hematology/BMT and Cellular Therapy Program [address] [place] [address] [place] [address] Essie Ricks RN [facility] HEMATOLOG[facility] PROGRAM CLINIC Social History [...] drink first t manav in the morning (EYE-GOLD LEAF PRINTER) to steady your nerves or to get [...] Upcoming Encounters Date Type Department Care Team ([place] [facility] Contact Info) Description 01/06/2025 8:30 AM EDT Clinical Support [facility] Hematology/BMT and Cellular Therapy Program [address] [phone] 01/06/2025 9:00 AM EDT Procedure Visit [facility] CC Hematology/BMT and Cellular Therapy Program [address] [phone] Kierra Novak, METROPOLITAN EDITOR 800 [facility] [address] [place] [phone] 01/13/2025 9:30 AM EDT Clinical Support [facility] Hematology/BMT and Cellular Therapy Program [address] [address] 01/13/2025 10:00 AM EDT Office Visit [facility] Hematology/BMT and Cellular Therapy Program [address] [place] [phone] Isaura Wynn, METROPOLITAN EDITOR 800 [facility] [address] [place] [phone] 01/13/2025 11:30 AM EDT Appointment [facility] Infusion 800 [place] [address] 01/14/2025 2:00 PM EDT Appointment [facility] 800 [place] [address] 01/15/2025 2:00 PM EDT Appointment [facility] 800 [place] [address] 01/16/2025 2:00 PM EDT Appointment [facility] 800 [place] [address] 01/17/2025 2:00 PM EDT Appointment [facility] 800 [place] [address] 01/18/2025 2:00 PM EDT Appointment [facility] 800 [place] [address] 01/19/2025 2:00 PM EDT Appointment [facility] 800 [place] [address] 03/10/2025 11:20 AM EDT Office Visit Pav CC Head, Neck & Respiratory 800 [facility], 2nd [place] [address] Elsa Razo, METROPOLITAN EDITOR 800 [place] [address] documented as of this encounter Visit Diagnoses [...] documented as of this encounter Care Teams Lineman A Class Relationship Specialty Start Date End Date Zhao Harris MD 1210 [facility] [address], [place] [address] PCP - General 12/03/20 documented as of this encounter
--- OUTSIDE RECORDS SUMMARY | 2025-01-05 08:22 | XMS_ITS | Encounter Summary ---
Author Organization [facility] Address [address] [place] [address] Care Team Providers Care Advertising Associate Name Role Phone Zhao Harris MD Primary Care Provider [phone] Encounter Details Date Type Department Care Team [...] drink first t manav in the morning (EYE-WRITER TECHNICAL PUBLICATIONS) to steady your nerves or to get [...] Upcoming Encounters Date Type Department Care Team ([facility] st Contact Info) Description 01/06/2025 8:30 AM EDT Clinical Support [facility] Hematology/BMT and Cellular Therapy Program [address] [phone] 01/06/2025 9:00 AM EDT Procedure Visit [facility] Hematology/BMT and Cellular Therapy Program [address] [address] Kierra Novak, CHIEF MARKETING OFFICER 800 [facility] [address] [place] [phone] 01/13/2025 9:30 AM EDT Clinical Support [facility] Hematology/BMT and Cellular Therapy Program [address] [address] 01/13/2025 10:00 AM EDT Office Visit [facility] Hematology/BMT and Cellular Therapy Program [address] [phone] Isaura Wynn, CHIEF MARKETING OFFICER 800 [facility] [address] [place] [phone] 01/13/2025 11:30 AM EDT Appointment [facility] Infusion 800 [place] [phone] 01/14/2025 2:00 PM EDT Appointment [facility] [address] [place] [phone] 01/15/2025 2:00 PM EDT Appointment [facility] [address] [place] [phone] 01/16/2025 2:00 PM EDT Appointment [facility] [address] [place] [phone] 01/17/2025 2:00 PM EDT Appointment [facility] [address] [place] [address] 01/18/2025 2:00 PM EDT Appointment [facility] [address] [place] [address] 01/19/2025 2:00 PM EDT Appointment [facility] [address] [place] [address] 03/10/2025 11:20 AM EDT Office Visit [facility] Head, Neck & Respiratory 800 [facility], 2nd [place] [address] Elsa Razo, CHIEF MARKETING OFFICER [address] [place] [address] documented as of this encounter Visit Diagnoses [...] documented as of this encounter Care Teams Advertising Associate Relationship Specialty Start Date End Date Zhao Harris MD [address] [place] [address] [phone] PCP - General 12/03/20 documented as of this encounter
--- OUTSIDE RECORDS SUMMARY | 2025-01-05 08:22 | XMS_ITS | Encounter Summary ---
Author Organization [facility] Address [address] 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) Virgen Vargas MD [address] [address] Phone: tel:[phone] [facility] Multidisciplinary Oncology Clinic [address] [place] [phone] Phone: tel: fax: Referral ID Status Reason Start Date Expiration Date Visits Requested Visits Authorized [id number] Authorized Specialty Services Required 12/11/2024 06/12/2026 1 1 Scheduling Instructions AML, evaluation for clinical trials * Consultation (Routine) - Authorized Specialty Diagnoses / Procedures Referred By Justice mcgee Referred To Contact Medical Oncology Diagnoses 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] first t manav in the morning (EYE-DIRECTOR PUBLIC) to steady your nerves or to get [...] CC Hematology/BMT and Cellular Therapy Program [address] [place] [phone] 01/06/2025 9:00 AM EDT Procedure Visit [facility] Hematology/BMT and Cellular Therapy Program [address] [phone] Kierra Novak, RECEIVING BARN CUSTODIAN 800 [facility] [address] [place] [phone] 01/13/2025 9:30 AM EDT Clinical Support [facility] Hematology/BMT and Cellular Therapy Program [address] [phone] 01/13/2025 10:00 AM EDT Office Visit [facility] Hematology/BMT and Cellular Therapy Program [address] [phone] Isaura Wynn, RECEIVING BARN CUSTODIAN 800 [facility] [address] [place] [phone] 01/13/2025 11:30 AM EDT Appointment [facility]fusion 800 [place] [address] 01/14/2025 2:00 PM EDT Appointment [facility] 800 [place] [phone] 01/15/2025 2:00 PM EDT Appointment [facility] 800 [place] [phone] 01/16/2025 2:00 PM EDT Appointment [facility] 800 [place] [address] 01/17/2025 2:00 PM EDT Appointment [facility] 800 [place] [address] 01/18/2025 2:00 PM EDT Appointment [facility] 800 [place] [phone] 01/19/2025 2:00 PM EDT Appointment [facility] 800 [place] [address] 03/10/2025 11:20 AM EDT Office Visit [facility] Head, Neck & Respiratory 800 [facility], [address] [place] [address] Elsa Razo, RECEIVING BARN CUSTODIAN 800 [place] [address] Scheduled Referrals Name Type Priority Associated Diagnoses [...] documented as of this encounter Care Teams Metal Sheet Roller Operator Relationship Specialty Start Date End Date Zhao Harris MD [address] [address] PCP - General 12/03/20 documented as of this encounter
--- OUTSIDE RECORDS SUMMARY | 2025-01-05 08:22 | XMS_ITS | Encounter Summary ---
Author Organization [facility] Address [address] [place] [address] Care Team Providers Care Senior Instructor Name Role Phone Zhao Harris MD Primary Care Provider [phone] Encounter Details Date Type Department Care Team [...] drink first t manav in the morning (EYE-GLASSWARE MAKER DEMONSTRATOR) to steady your nerves or to get [...] Hematology/BMT and Cellular Therapy Program [address] [phone] 01/06/2025 9:00 AM EDT Procedure Visit [facility] Hematology/BMT and Cellular Therapy Program [address] [phone] Kierra Novak, SALON DESIGNER 800 [facility] [address] [place] [phone] 01/13/2025 9:30 AM EDT Clinical Support [facility] Hematology/BMT and Cellular Therapy Program [address] [phone] 01/13/2025 10:00 AM EDT Office Visit [facility] Hematology/BMT and Cellular Therapy Program [address] [phone] Isaura Wynn, SALON DESIGNER 800 [facility] [address] [place] [phone] 01/13/2025 11:30 AM EDT Appointment [facility]fusion 800 [place] [phone] 01/14/2025 2:00 PM EDT Appointment [facility] 800 [place] [phone] 01/15/2025 2:00 PM EDT Appointment [facility] 800 [place] [phone] 01/16/2025 2:00 PM EDT Appointment [facility] [address] [place] [phone] 01/17/2025 2:00 PM EDT Appointment [facility] [address] [place] [address] 01/18/2025 2:00 PM EDT Appointment [facility] [address] [place] [address] 01/19/2025 2:00 PM EDT Appointment [facility] [address] [place] [address] 03/10/2025 11:20 AM EDT Office Visit [facility] CC Head, Neck & Respiratory 800 [facility], 2nd [place] [address] Elsa Razo, SALON DESIGNER 800 [place] [address] documented as of this encounter Visit Diagnoses [...] as of this encounter Care Teams Senior Instructor Relationship Specialty Start Date End Date Zhao Harris MD [address] [place] [address] [phone] PCP - General 12/03/20 documented as of this encounter
--- OUTSIDE RECORDS SUMMARY | 2025-01-05 08:22 | XMS_ITS | Encounter Summary ---
Author Organization [facility] Address [address] [place] [address] Care Team Providers Care Plodder Operator Name Role Phone Zhao Harris MD Primary Care Provider [phone] Encounter Details Date Type Department Care Team ([facility] st Contact Info) Description 12/12/2024 Orders Only [facility] Hematology/BMT and Cellular Therapy Program [address] [place] [address] [place] [address] Gricel Gonzalez RN [facility] Social History Tobacco [...] drink first t manav in the morning (EYE-GERENTOLOGICAL PHYSIOTHERAPIST) to steady your nerves or to get [...] Encounters Date Type Department Care Team ([facility] st Contact Info) Description 01/06/2025 8:30 AM EDT Clinical Support [facility] Hematology/BMT and Cellular Therapy Program [address] [place] [phone] 01/06/2025 9:00 AM EDT Procedure Visit [facility] Hematology/BMT and Cellular Therapy Program [address] [place] [phone] Kierra Novak, WELL HEAD PUMPER 800 [facility] [address] [place] [phone] 01/13/2025 9:30 AM EDT Clinical Support [facility] Hematology/BMT and Cellular Therapy Program [address] [place] [phone] 01/13/2025 10:00 AM EDT Office Visit [facility] Hematology/BMT and Cellular Therapy Program [address] [place] [phone] Isaura Wynn, WELL HEAD PUMPER 800 [facility] [address] [place] [phone] 01/13/2025 11:30 AM EDT Appointment [facility] Infusion 800 [place] [phone] 01/14/2025 2:00 PM EDT Appointment [facility]fusion 800 [place] [phone] 01/15/2025 2:00 PM EDT Appointment [facility] 800 [place] [address] 01/16/2025 2:00 PM EDT Appointment [facility] 800 [place] [address] 01/17/2025 2:00 PM EDT Appointment [facility] 800 [place] [address] 01/18/2025 2:00 PM EDT Appointment [facility] 800 [place] [address] 01/19/2025 2:00 PM EDT Appointment [facility]fusion 800 [place] [address] 03/10/2025 11:20 AM EDT Office Visit Pav CC Head, Neck & Respiratory 800 [facility], 2nd [place] [address] Elsa Razo, WELL HEAD PUMPER 800 [place] [address] documented as of this encounter Visit Diagnoses [...] documented as of this encounter Care Teams Plodder Operator Relationship Specialty Start Date End Date Zhao Harris MD [address] [address] PCP - General 12/03/20 documented as of this encounter
--- OUTSIDE RECORDS SUMMARY | 2025-01-05 08:22 | XMS_ITS | Encounter Summary ---
Author Organization [facility] Address [address] [place] [address] Care Team Providers Care Supervisor Estimator And Drafter Name Role Phone Zhao Harris MD Primary Care Provider [phone] Encounter Details Date Type Department Care Team [...] drink first t manav in the morning (EYE-ARCHITECTURE CONSULTANT) to steady your nerves or to [...] Upcoming Encounters Date Type Department Care Team ([facility] st Contact Info) Description 01/06/2025 8:30 AM EDT Clinical Support [facility] Hematology/BMT and Cellular Therapy Program [address] [phone] 01/06/2025 9:00 AM EDT Procedure Visit [facility] Hematology/BMT and Cellular Therapy Program [address] [phone] Kierra Novak, FAMILY EDUCATOR 800 [facility] [address] [place] [phone] 01/13/2025 9:30 AM EDT Clinical Support [facility] Hematology/BMT and Cellular Therapy Program [address] [address] 01/13/2025 10:00 AM EDT Office Visit [facility] Hematology/BMT and Cellular Therapy Program [address] [phone] Isaura Wynn, FAMILY EDUCATOR 800 [facility] [address] [place] [phone] 01/13/2025 11:30 AM EDT Appointment [facility]fusion 800 [place] [phone] 01/14/2025 2:00 PM EDT Appointment [facility]fusion 800 [place] [phone] 01/15/2025 2:00 PM EDT Appointment [facility]fusion 800 [place] [phone] 01/16/2025 2:00 PM EDT Appointment [facility]fusion 800 [place] [phone] 01/17/2025 2:00 PM EDT Appointment [facility]fusion 800 [place] [address] 01/18/2025 2:00 PM EDT Appointment [facility]fusion 800 [place] [address] 01/19/2025 2:00 PM EDT Appointment [facility]fusion 800 [place] [address] 03/10/2025 11:20 AM EDT Office Visit Pav CC Head, Neck & Respiratory 800 [facility], 2nd [place] [address] Elsa Razo, FAMILY EDUCATOR 800 [place] [address] documented as of this encounter Visit Diagnoses [...] as of this encounter Care Teams Supervisor Estimator And Drafter Relationship Specialty Start Date End Date Zhao Harris MD [address] [place] [address] [phone] PCP - General 12/03/20 documented as of this encounter
--- OUTSIDE RECORDS SUMMARY | 2025-01-05 08:23 | XMS_ITS | Encounter Summary ---
Author Organization [facility] Address [address] [place] [address] Care Team Providers Care Rod Greaser Name Role Phone Unavailable Primary Care Provider Unavailabl e Encounter Details Date Type Department Care Team (Late st Contact Info) Description 07/10/2019 Transcribed Document [facility] Family Medicine [facility] [place] [address] ProviderBrigida MD [address] [place] [address] Social History Tobacco Use Types Packs/Day [...] Brigida Vega MD - 07/10/2019 9:18 AM [facility] Patient Education Materials Follows: Local Anesthesia, Care [...] activities are safe for you. ??? Take hkzm-boy-kmnixxe and prescription medicines only as told by [...] 12/28/2017 Document Revised: 03/07/2018 Document Reviewed: 12/28/2017 [employer] Patient Education ? 2019 [employer] General Anesthesia, Adult, Care After This [...] activities are safe for you. ??? Take lizn-nme-cdxxcid and prescription medicines only as told by [...] 10/15/2001 Document Revised: 02/22/2018 Document Reviewed: 02/22/2018 [employer] Patient Education ? 2019 [employer] Knee Arthroscopy, Care After Refer to [...] activities are safe for you. ??? Perform qrveu-ch-wxtujk exercises only as directed by your health [...] 01/26/2006 Document Revised: 12/08/2016 Document Reviewed: 07/05/2015 [employer] Interactive Patient Education ? 2018 [employer] documented in this encounter Plan of Treatment Not on file documented as of this encounter Visit Diagnoses Not on filedocumented in this encounter
--- OUTSIDE RECORDS SUMMARY | 2025-01-05 08:23 | XMS_ITS | Encounter Summary ---
Author Organization [facility] Address [address] [place] [address] Care Team Providers Care Outreach And Education Social Worker Name Role Phone Zhoa Harris MD Primary Care Provider [phone] Encounter Details Date Type Department Care Team ([facility] st Contact Info) Description 12/16/2024 Orders Only [facility] Hematology/BMT and Cellular Therapy Program [address] [phone] Christina Ramos MD [facility] [address] [place] [address] Myelodysplasia (myelodysplastic syndrome) (CMS/HCC) (Primary Dx) Social [...] drink first t manav in the morning (EYE-HYDRAULIC DREDGE OPERATOR) to steady your nerves or to [...] ([facility] Contact Info) Description 01/06/2025 8:30 AM EDT Clinical Support [facility] Hematology/BMT and Cellular Therapy Program [address] [place] [phone] 01/06/2025 9:00 AM EDT Procedure Visit [facility] Hematology/BMT and Cellular Therapy Program [address] [place] [phone] Kierra Novak, BODY DESIGNER [facility] [address] [place] [phone] 01/13/2025 9:30 AM EDT Clinical Support [facility] Hematology/BMT and Cellular Therapy Program [address] [place] [phone] 01/13/2025 10:00 AM EDT Office Visit [facility] Hematology/BMT and Cellular Therapy Program [address] [place] [phone] Isaura Wynn, BODY DESIGNER [facility] [address] [place] [phone] 01/13/2025 11:30 AM EDT Appointment [facility] [address] [place] [phone] 01/14/2025 2:00 PM EDT Appointment [facility] [address] [place] [address] 01/15/2025 2:00 PM EDT Appointment [facility] [address] [place] [address] 01/16/2025 2:00 PM EDT Appointment [facility] [address] [place] [address] 01/17/2025 2:00 PM EDT Appointment [facility] [address] [place] [address] 01/18/2025 2:00 PM EDT Appointment [facility] [address] [place] [address] 01/19/2025 2:00 PM EDT Appointment [facility] [address] [place] [address] 03/10/2025 11:20 AM EDT Office Visit Pav [facility] Head, Neck & Respiratory 800 [facility], 2nd [place] [address] Elsa Razo, BODY DESIGNER [address] [place] [address] Scheduled Orders Name Type Priority Associated Diagnoses Orde r Schedule CBC and differential Lab Routine Myelodysplasia (myelodysplastic syndrome) ([facility]) Expected: 12/23/2024, Expires: 12/23/2025 Comprehensive metabolic panel Lab Routine Myelodysplasia (myelodysplastic syndrome) ([facility]) Expected: 12/23/2024, Expires: 12/23/2025 CBC and differential Lab Routine Myelodysplasia (myelodysplastic syndrome) ([facility]) Expected: 12/25/2024, Expires: 12/25/2025 CBC and differential Lab Routine Myelodysplasia (myelodysplastic syndrome) ([facility]) Expected: 12/27/2024, Expires: 12/27/2025 CBC and differential Lab Routine Myelodysplasia (myelodysplastic syndrome) ([facility]) Expected: 12/30/2024, Expires: 12/30/2025 Comprehensive metabolic panel Lab Routine Myelodysplasia (myelodysplastic syndrome) ([facility]) Expected: 12/30/2024, Expires: 12/30/2025 CBC and differential Lab Routine Myelodysplasia (myelodysplastic syndrome) ([facility]) Expected: 01/01/2025, Expires: 01/01/2026 CBC and differential Lab Routine Myelodysplasia (myelodysplastic syndrome) ([facility]) Expected: 01/03/2025, Expires: 01/03/2026 CBC and differential Lab Routine Myelodysplasia (myelodysplastic syndrome) ([facility]) Expected: 01/06/2025, Expires: 01/06/2026 Comprehensive metabolic panel Lab Routine Myelodysplasia (myelodysplastic syndrome) ([facility]) Expected: 01/06/2025, Expires: 01/06/2026 CBC and differential Lab Routine Myelodysplasia (myelodysplastic syndrome) ([facility]) Expected: 01/08/2025, Expires: 01/08/2026 CBC and differential Lab Routine Myelodysplasia (myelodysplastic syndrome) ([facility]) Expected: 01/10/2025, Expires: 01/10/2026 documented as of this encounter Results * (ABNORMAL) CBC and differential (12/20/2024 9:00 AM EDT) WBC Count 0.59(LL) 3.70 - 10.30 10*3/uL LAB HEMATOLOGY METHOD 12/20/2024 10:25 AM EDT [facility] RBC Count 2.46(L) 4.60 - 6.10 10*6/uL LAB HEMATOLOGY METHOD 12/20/2024 10:25 AM EDT [facility] HGB 7.8(L) 13.7 - 17.5 g/dL LAB HEMATOLOGY METHOD 12/20/2024 10:25 AM EDT [facility] HCT 22.0(L) 40.0 - 51.0 % LAB HEMATOLOGY METHOD 12/20/2024 10:25 AM EDT [facility] Platelet Count 22(L) 155 - 369 10*3/uL LAB HEMATOLOGY METHOD 12/20/2024 10:25 AM EDT [facility] MCV 89 79 - 98 fL LAB HEMATOLOGY METHOD 12/20/2024 10:25 AM EDT [facility] MCH 31.7 26.0 - 32.0 pg LAB HEMATOLOGY METHOD 12/20/2024 10:25 AM EDT [facility] MCHC 35.5 30.7 - 35.5 g/dL LAB HEMATOLOGY METHOD 12/20/2024 10:25 AM EDT [facility] RDW 16.0(H) 11.5 - 14.5 % LAB HEMATOLOGY METHOD 12/20/2024 10:25 AM EDT [facility] MPV 11.3 8.8 - 12.5 fL LAB HEMATOLOGY METHOD 12/20/2024 10:25 AM EDT [facility] nRBC 0.0 <=0.0 per 100 WBCs LAB HEMATOLOGY METHOD 12/20/2024 10:25 AM EDT [facility] Differential Type Automated LAB HEMATOLOGY METHOD 12/20/2024 10:25 AM EDT [facility] Neutrophils % 5 % LAB HEMATOLOGY METHOD 12/20/2024 10:25 AM EDT [facility] Lymphocytes % 92 % LAB HEMATOLOGY METHOD 12/20/2024 10:25 AM EDT [facility] Monocytes % 3 % LAB HEMATOLOGY METHOD 12/20/2024 10:25 AM EDT [facility] Eosinophils % 0 % LAB HEMATOLOGY METHOD 12/20/2024 10:25 AM EDT [facility] Basophils % 0 % LAB HEMATOLOGY METHOD 12/20/2024 10:25 AM EDT [facility] Immature Granulocytes % 0 % LAB HEMATOLOGY METHOD 12/20/2024 10:25 AM EDT [facility] Neutrophils Absolute 0.03(LL) 1.60 - 6.10 10*3/uL LAB HEMATOLOGY METHOD 12/20/2024 10:25 AM EDT [facility] Lymphocytes Absolute 0.54(L) 1.20 - 3.90 10*3/uL LAB HEMATOLOGY METHOD 12/20/2024 10:25 AM EDT [facility] Monocytes Absolute 0.02(L) 0.30 - 0.90 10*3/uL LAB HEMATOLOGY METHOD 12/20/2024 10:25 AM EDT [facility] Eosinophils Absolute 0.00 0.00 - 0.50 10*3/uL LAB HEMATOLOGY METHOD 12/20/2024 10:25 AM EDT [facility] Basophils Absolute 0.00 0.00 - 0.10 10*3/uL LAB HEMATOLOGY METHOD 12/20/2024 10:25 AM EDT [facility] Immature Granulocytes Absolute 0.00 0.00 - 0.06 10*3/uL LAB HEMATOLOGY METHOD 12/20/2024 10:25 AM EDT [facility] Blood Blood sample taken from central line / Unknown (Central Line) Existing Catheter / Unknown 12/20/2024 9:00 AM EDT 12/20/2024 9:13 AM EDT Narrative [facility] - 12/20/2024 10:25 AM EDT Therapeutic decision making should be based on absolute values, rather than percentages. us Christina Ramos MD LAB BLOOD ORDERABLES Final Resul t [facility] [address] [place] [address] * (ABNORMAL) CBC and differential (12/18/2024 9:14 AM EDT) WBC Count 0.51(LL) 3.70 - 10.30 10*3/uL LAB HEMATOLOGY METHOD 12/18/2024 10:49 AM EDT [facility] RBC Count 2.50(L) 4.60 - 6.10 10*6/uL LAB HEMATOLOGY METHOD 12/18/2024 10:49 AM EDT [facility] HGB 8.1(L) 13.7 - 17.5 g/dL LAB HEMATOLOGY METHOD 12/18/2024 10:49 AM EDT [facility] HCT 21.9(L) 40.0 - 51.0 % LAB HEMATOLOGY METHOD 12/18/2024 10:49 AM EDT [facility] Platelet Count 6(LL) 155 - 369 10*3/uL LAB HEMATOLOGY METHOD 12/18/2024 10:49 AM EDT [facility] MCV 88 79 - 98 fL LAB HEMATOLOGY METHOD 12/18/2024 10:49 AM EDT [facility] MCH 32.4(H) 26.0 - 32.0 pg LAB HEMATOLOGY METHOD 12/18/2024 10:49 AM EDT [facility] MCHC 37.0(H) 30.7 - 35.5 g/dL LAB HEMATOLOGY METHOD 12/18/2024 10:49 AM EDT [facility] RDW 16.7(H) 11.5 - 14.5 % LAB HEMATOLOGY METHOD 12/18/2024 10:49 AM EDT [facility] MPV LAB HEMATOLOGY METHOD 12/18/2024 10:49 AM EDT [facility] Comment:Not Measured nRBC 0.0 <=0.0 per 100 WBCs LAB HEMATOLOGY METHOD 12/18/2024 10:49 AM EDT [facility] Differential Type Automated LAB HEMATOLOGY METHOD 12/18/2024 10:49 AM EDT [facility] Neutrophils % 6 % LAB HEMATOLOGY METHOD 12/18/2024 10:49 AM EDT [facility] Lymphocytes % 90 % LAB HEMATOLOGY METHOD 12/18/2024 10:49 AM EDT [facility] Monocytes % 4 % LAB HEMATOLOGY METHOD 12/18/2024 10:49 AM EDT [facility] Eosinophils % 0 % LAB HEMATOLOGY METHOD 12/18/2024 10:49 AM EDT [facility] Basophils % 0 % LAB HEMATOLOGY METHOD 12/18/2024 10:49 AM EDT [facility] Immature Granulocytes % 0 % LAB HEMATOLOGY METHOD 12/18/2024 10:49 AM EDT [facility] Neutrophils Absolute 0.03(LL) 1.60 - 6.10 10*3/uL LAB HEMATOLOGY METHOD 12/18/2024 10:49 AM EDT [facility] Lymphocytes Absolute 0.46(L) 1.20 - 3.90 10*3/uL LAB HEMATOLOGY METHOD 12/18/2024 10:49 AM EDT [facility] Monocytes Absolute 0.02(L) 0.30 - 0.90 10*3/uL LAB HEMATOLOGY METHOD 12/18/2024 10:49 AM EDT [facility] Eosinophils Absolute 0.00 0.00 - 0.50 10*3/uL LAB HEMATOLOGY METHOD 12/18/2024 10:49 AM EDT [facility] Basophils Absolute 0.00 0.00 - 0.10 10*3/uL LAB HEMATOLOGY METHOD 12/18/2024 10:49 AM EDT [facility] Immature Granulocytes Absolute 0.00 0.00 - 0.06 10*3/uL LAB HEMATOLOGY METHOD 12/18/2024 10:49 AM EDT [facility] Blood Blood sample taken from central line / Unknown Venipuncture / Unknown 12/18/2024 9:14 AM EDT 12/18/2024 9:20 AM EDT Narrative [facility] - 12/18/2024 10:49 AM EDT Therapeutic decision making should be based on absolute values, rather than percentages. us Christina Ramos MD LAB BLOOD ORDERABLES Final Resul t [facility] [address] [place] [address] documented in this encounter Visit Diagnoses Diagnosis [...] documented as of this encounter Care Teams Outreach And Education Social Worker Relationship Specialty Start Date End Date Zhao Harris MD [address] [place] [address] [place] [address] PCP - General 12/03/20 documented as of this encounter
--- OUTSIDE RECORDS SUMMARY | 2025-01-05 08:23 | XMS_ITS | Encounter Summary ---
Author Organization [employer] Address [address] [place] [address] Care Team Providers Care Vulcanizing Machine Operator Name Role Phone Unavailable Primary Care Provider Unavailabl e Encounter Details Date Type Department Care Team (Late st Contact Info) Description 07/10/2019 Transcribed Document [facility] Family Medicine [facility] [place] [address] ProviderBrigida MD [address] [place] [address] Social History Tobacco Use Types Packs/Day [...] - Historical ProviderMD - 07/10/2019 8:16 AM WAREHOUSER Patient: HUGO AGUILAR JR Age: 63 years [...]
--- OUTSIDE RECORDS SUMMARY | 2025-01-05 08:23 | XMS_ITS | Encounter Summary ---
Author Organization [employer] Address [address] [place] [address] Care Team Providers Care Labeling Machine Operator Name Role Phone Unavailable Primary Care Provider Unavailabl e Encounter Details Date Type Department Care Team (Late st Contact Info) Description 07/10/2019 Transcribed Document [facility] Family Medicine [facility] [address] ProviderBrigida MD [address] [place] [address] Social History Tobacco Use Types Packs/Day [...] - Historical ProviderMD - 07/10/2019 7:57 AM SUPERVISOR PUBLICATIONS PRODUCTION RYLAN Main OR IntraOp Summary Primary Physician: SURY SHARMA MD-ORT Finalized Date/Time: 07/10/19 08:31:14 Pt. Name: HUGO AGUILAR JR, D.O.B./Sex: 1955 Male Med Rec #: [id number] Physician: SURY SHARMA MD-ORT Financial #: [id number] Pt. Type: O Room/Bed: Admit/Disch: 07/10/19 05:55:00 - Institution: [facility] [place] IntraOp Case Attendance Entry 1 Entry 2 Entry 3 Case Attendee SURY SHARMA, RTAVIS PUTNAM, ESTRELLA, Kenrick Guadalupe, SUPERVISOR PUBLICATIONS PRODUCTION/WOOD GETTER -ORT WHEEL MILL OPERATOR-ANS Role Performed Surgeon/Proceduralist, WHEEL MILL OPERATOR/Nurse Vegetable Grower Senior Naval Parachutist, First First Time In 07/10/19 07:38:00 07/10/19 07:38:00 07/10/19 07:38:00 Time Out 07/10/19 08:26:00 07/10/19 08:26:00 07/10/19 08:26:00 Procedure Knee Arthroscopy Knee Arthroscopy Knee Arthroscopy Other Attendee Superficial Wound Closed By: Last Modified By: Martha Goldberg RN Dobson, Melissa, RN Dobson, Melissa, RN 07/10/19 08:31:02 07/10/19 08:31:02 07/10/19 08:31:02 Entry 4 Entry 5 Case Attendee WILMER HECTOR Melissa, RN Role Performed Scrub, First Pipe Roller, First Time In 07/10/19 07:38:00 07/10/19 07:38:00 Time Out 07/10/19 08:26:00 07/10/19 08:26:00 Procedure Knee Arthroscopy Knee Arthroscopy Other Attendee Superficial Wound Closed By: Last Modified By: Martha Goldberg RN Dobson, Melissa, RN 07/10/19 08:31:02 07/10/19 08:31:02 [facility] IntraOp Case Attendance Audit 07/10/19 08:31:02 Laser Beam Cutter: [id number] Modifier: [id number] 1 <+> Time Out 1 <*> Procedure Knee Arthroscopy 2 <+> Time Out 2 <*> Procedure Knee Arthroscopy 3 <+> Time Out 3 <*> Procedure Knee Arthroscopy 4 <+> Time Out 4 <*> Procedure Knee Arthroscopy 5 <+> Time Out 5 <*> Procedure Knee Arthroscopy 07/10/19 08:12:16 Laser Beam Cutter: [id number] Modifier: [id number] <+> 1 Time In <+> 1 Procedure [...] [facility] IntraOp Case Times Audit 07/10/19 08:30:17 Laser Beam Cutter: [id number] Modifier: [id number] <+> 1 Out Room Time <+> 1 [...] Last Modified By: Martha Goldberg RN 07/10/19 08:02:01 [facility] IntraOp Counts [...] [facility] IntraOp Counts Final Audit 07/10/19 08:29:56 Laser Beam Cutter: [id number] Modifier: [id number] 1 <*> Procedure Knee Arthroscopy [facility] IntraOp Delays Entry 1 Delay Reason Other Duration 8 Minute(s) Last Modified By: Martha Goldberg RN 07/10/19 08:06:57 [facility] IntraOp Departure from OR Entry 1 Integumentary Assessment Integumentary WDL Assessment WDL Transfer/Handoff Transfer to PACU Phase I Handoff Method Bedside/Face to face Post-op Transport Stretcher/Gurney Via Patient Transport Martha Goldberg RN, Accompanied by TRAVIS PUTNAM, COMPUTER TECHNICAL SPECIALIST, WHEEL MILL OPERATOR-ANS Last Modified By: Martha Goldberg RN 07/10/19 08:06:58 [facility] IntraOp Dressing and Packing Entry 1 Type Dressing Location RIGHT KNEE Wound Dressing Item 4x4's, Joseph, Kerlix/Maninder Applied By Kenrick Guadalupe, SUPERVISOR PUBLICATIONS PRODUCTION/WOOD GETTER Last Modified By: Martha Goldberg RN 07/10/19 [...] RN 07/10/19 08:07:26 [facility] IntraOp General Case Manufacturing Mechanic 1 Case Information OR OR 05 SJE Case Level 1 Room Verified Yes Wound Class I - Clean Specialty SN Orthopedic Anesthesia Type General ASA Class 3 Diagnosis Preop Diagnosis RIGHT KNEE PAIN Postop Same As Preop Yes Postop Diagnosis RIGHT KNEE PAIN Last Modified By: Martha Goldberg RN 07/10/19 08:16:03 [facility] IntraOp General Case Data Audit 07/10/19 08:16:03 Laser Beam Cutter: [id number] Modifier: [id number] <+> 1 ASA Class <+> 1 Anesthesia [...] [facility] IntraOp Intraoperative Equipment Audit 07/10/19 08:15:09 Laser Beam Cutter: [id number] Modifier: [id number] 1 <*> Photo Yes 1 <*> Video [...] 20ml vial Marcaine 0.5% 30ml vial - [id number] - [id number] Combo Med List Time Administered 07/10/19 07:57:00 07/10/19 07:57:00 Route of LOCAL LOCAL Administration Dose Dose 25 20 Unit of Measure ml ml Volume Administered By Kenrick Guadalupe, SUPERVISOR PUBLICATIONS PRODUCTION/WOOD GETTER Kenrick Guadalupe CST/FREDY Procedure Irrigation Irrigant Volume [...] Positioned By Martha Goldberg RN, TRAVIS PUTNAM, COMPUTER TECHNICAL SPECIALIST, WHEEL MILL OPERATOR-ANS Position Verified Positioning Yes Verified by Anesthesia [...] Intra Op Sign Out Audit 07/10/19 08:30:31 Laser Beam Cutter: [id number] Modifier: [id number] <+> 1 RN Sign Out Signature Date/Time [...] [facility] IntraOp Surgical Procedures Audit 07/10/19 08:30:36 Laser Beam Cutter: [id number] Modifier: [id number] <+> 1 Stop 07/10/19 08:16:57 Laser Beam Cutter: [id number] Modifier: [id number] 1 <*> Procedure Knee Arthroscopy [facility] IntraOp Temp Regulation Devices Entry 1 Temp Regulation Temperature Warm blankets Regulation Device Temperature Upper body Regulation Site Temperature TRAVIS PUTNAM APRN, Regulation Device WHEEL MILL OPERATOR-ANS Applied by Last Modified By: Martha Goldberg [...] [facility] IntraOp Time Out Audit 07/10/19 08:31:00 Laser Beam Cutter: [id number] Modifier: [id number] 1 <*> Beta Jaime Administered N/A 1 <*> Procedure to be Performed Knee Arthroscopy Case Comments <None> Finalized By: Martha Goldberg RN Document Signatures Signed By: Martha Goldberg RN 07/10/19 08:31 Electronically signed by [facility] Conversion Real Estate Office Supervisor Cerner at 11/06/2022 5:47 PM CDT documented in this encounter Plan of Treatment Not on file documented as of this encounter Visit Diagnoses Not on filedocumented in this encounter
--- OUTSIDE RECORDS SUMMARY | 2025-01-05 08:23 | XMS_ITS | Encounter Summary ---
Author Organization [facility] Address [address] [place] [address] Care Team Providers Care Clothes Marker Name Role Phone Zhao Harris MD Primary Care Provider [phone] Encounter Details Date Type Department Care Team [...] drink first t manav in the morning (EYE-LIFE INSURANCE ACTUARY) to steady your nerves or to get [...] Hematology/BMT and Cellular Therapy Program [address] [phone] 01/06/2025 9:00 AM EDT Procedure Visit [facility] Hematology/BMT and Cellular Therapy Program [address] [phone] Kierra Novak, MARKETING FINANCE MANAGER 800 [facility] [address] [place] [phone] 01/13/2025 9:30 AM EDT Clinical Support [facility] Hematology/BMT and Cellular Therapy Program [address] [phone] 01/13/2025 10:00 AM EDT Office Visit [facility] Hematology/BMT and Cellular Therapy Program [address] [phone] Isarua Wynn, MARKETING FINANCE MANAGER 800 [facility] [address] [place] [phone] 01/13/2025 11:30 AM EDT Appointment [facility] [address] [place] [phone] 01/14/2025 2:00 PM EDT Appointment [facility] [address] [place] [phone] 01/15/2025 2:00 PM EDT Appointment [facility] [address] [place] [phone] 01/16/2025 2:00 PM EDT Appointment [facility] [address] [place] [phone] 01/17/2025 2:00 PM EDT Appointment [facility] [address] [place] [address] 01/18/2025 2:00 PM EDT Appointment [facility] [address] [place] [address] 01/19/2025 2:00 PM EDT Appointment [facility] [address] [place] [address] 03/10/2025 11:20 AM EDT Office Visit Pav CC Head, Neck & Respiratory 800 [facility], 2nd [place] [address] Elsa Razo, MARKETING FINANCE MANAGER [address] [place] [address] documented as of this encounter Visit Diagnoses [...] documented as of this encounter Care Teams Clothes Marker Relationship Specialty Start Date End Date Zhao Harris MD [address] [place] [phone] PCP - General 12/03/20 documented as of this encounter
--- OUTSIDE RECORDS SUMMARY | 2025-01-05 08:23 | XMS_ITS | Encounter Summary ---
Author Organization [facility] Address [address] [place] [address] Care Team Providers Care Jewel Bearing Driller Name Role Phone Zhao Harris MD Primary Care Provider [phone] Reason for Visit * Reason Comments Med Refill Encounter Details Date Type Department Care Team (Late st Contact Info) Description 06/19/2023 Refill [facility] [facility] [address] [facility] [place] [phone] Elsa Razo, MANAGER PIPELINE [address] [place] [address] Hypertension, unspecified type; Coronary artery disease involving red cliff heart with [...] [address] [place] [address] 01/06/2025 9:00 AM EDT Procedure Visit [facility] Hematology/BMT and Cellular Therapy Program [address] [phone] Kierra Novak, MANAGER PIPELINE [facility] [address] [place] [phone] 01/13/2025 9:30 AM EDT Clinical Support [facility] Hematology/BMT and Cellular Therapy Program [address] [phone] 01/13/2025 10:00 AM EDT Office Visit [facility] Hematology/BMT and Cellular Therapy Program [address] [phone] Isaura Wynn, MANAGER PIPELINE [facility] [address] [place] [phone] 01/13/2025 11:30 AM EDT Appointment [facility] [address] [place] [phone] 01/14/2025 2:00 PM EDT Appointment [facility] [address] [place] [phone] 01/15/2025 2:00 PM EDT Appointment [facility] [address] [place] [address] 01/16/2025 2:00 PM EDT Appointment [facility] [address] [place] [address] 01/17/2025 2:00 PM EDT Appointment [facility] [address] [place] [phone] 01/18/2025 2:00 PM EDT Appointment [facility] [address] [place] [phone] 01/19/2025 2:00 PM EDT Appointment [facility] [address] [place] [phone] 03/10/2025 11:20 AM EDT Office Visit [facility] CC Head, Neck & Respiratory 800 [facility], [address] [place] [address] Elsa Razo, MANAGER PIPELINE [address] [place] [phone] documented as of this encounter Visit Diagnoses Diagnosis Hypertension, unspecified type Coronary artery disease involving red cliff heart with [...] documented as of this encounter Care Teams Jewel Bearing Driller Relationship Specialty Start Date End Date Zhao Harris MD [address] [place] [address] PCP - General 12/03/20 documented as of this encounter
--- OUTSIDE RECORDS SUMMARY | 2025-01-05 08:23 | XMS_ITS | Encounter Summary ---
Author Organization [employer] Address [address] [place] [address] Care Team Providers Care Cannon Fire Direction Specialist Name Role Phone Unavailable Primary Care Provider Unavailabl e Encounter Details Date Type Department Care Team (Late st Contact Info) Description 07/10/2019 Transcribed Document [facility] Family Medicine [facility] [place] [address] ProviderBrigida MD [address] [place] [address] Social History Tobacco Use Types Packs/Day [...] - Brigida ProviderMD - 07/10/2019 9:20 AM TRAIN BRAKER [address] [address] HUGO AGUILAR JR :1955 Visit Time:07/10/2019 What to do next Your Diagnosis Chondromalacia, right knee, Chondromalacia, right knee Instructions From Your Care Team Weight bearing as tolerated, use cane or crutches if needed. Keep dressing clean and dry for at least 2 days. Resume all home medications. Usual diet as tolerated. Island 10/325mg 1 tablet every 6 hours as needed for pain- next dose due @ 3:30pm today 07/10/19. Follow-Up Appointments Follow Up with SURY SHARMA MD-ORT When 07/21/2019 02:00 PM EST Where: [facility] 2ND FLOOR [place] [id number]- Medications What How Much When Instructions Next [...] activities are safe for you. ??? Take erey-xmg-ontcdyo and prescription medicines only as told by [...] 12/28/2017 Document Revised: 03/07/2018 Document Reviewed: 12/28/2017 ElseTagCash Interactive Patient Education ?? 2019 [employer]. General Anesthesia, Adult, Care After This [...] activities are safe for you. ??? Take simf-yet-zkqpvys and prescription medicines only as told by [...] 10/15/2001 Document Revised: 02/22/2018 Document Reviewed: 02/22/2018 [employer] Interactive Patient Education ?? 2019 [employer]. Knee Arthroscopy, Care After Refer to [...] activities are safe for you. ??? Perform nlykd-yy-rfanbx exercises only as directed by your health [...] 01/26/2006 Document Revised: 12/08/2016 Document Reviewed: 07/05/2015 [employer] Interactive Patient Education ?? 2018 [employer]. acetaminophen and hydrocodone (a SEET a MIN oh fen and laurie droe KOE done) Hycet, Lorcet, Island, Verdrocet, Vicodin, Xodol, Zamicet What is the [...] may report side effects to FDA at 8-823-QQJ-9905. What other drugs will affect acetaminophen and [...] affect acetaminophen and hydrocodone, including prescription and vuei-zar-cjjjsiq medicines, vitamins, and herbal products. Not all [...] to ensure that the information provided by [employer]. ('Bizporatum') is accurate, up-to-date, and complete, but no guarantee is made to that effect. Drug information contained herein may be time sensitive. [employer] Mobile information has been compiled for use by healthcare practitioners and consumers in the [place] and therefore [employer] does not warrant that uses outside of the [place] are appropriate, unless specifically indicated otherwise. Spartzs drug information does not endorse drugs, diagnose patients or recommend therapy. Spartzs drug information is an informational resource designed [...] with your doctor, nurse or pharmacist. Copyright 8289-4347 [employer]. Version: 15.02. Revision Date: 05/27/2018. Emergency Awareness [...] Assistance with quitting is available by contacting 1-336-LPHN-NOW. This is a free resource providing counseling, [...] was given the opportunity to ask questions. Patient/Tour Consultant Name: Patient/Tour Consultant Signature: Relationship to Patient: Clinician/Hospital Tour Consultant Signature: Date: documented in this encounter Plan of Treatment Not on file documented as of this encounter Visit Diagnoses Not on filedocumented in this encounter
--- OUTSIDE RECORDS SUMMARY | 2025-01-05 08:23 | XMS_ITS | Encounter Summary ---
Author Organization [employer] Address [address] [place] [address] Care Team Providers Care Commissary Worker Name Role Phone Unavailable Primary Care Provider Unavailabl e Encounter Details Date Type Department Care Team (Late st Contact Info) Description 07/10/2019 Transcribed Document [facility] [place] [address] ProviderBrigida MD [address] [place] [address] Social History Tobacco Use Types Packs/Day [...] - Brigida ProviderMD - 07/10/2019 9:24 AM SALES PLANNER [address] [address] HUGO AGUILAR JR :1955 Visit Time:07/10/2019 What to do next Your Diagnosis Chondromalacia, right knee, Chondromalacia, right knee Instructions From Your Care Team Weight bearing as tolerated, use cane or crutches if needed. Keep dressing clean and dry for at least 2 days. Resume all home medications. Usual diet as tolerated. Amboy 10/325mg 1 tablet every 6 hours as needed for pain- next dose due @ 3:30pm today 07/10/19. Follow-Up Appointments Follow Up with SURY SHARMA MD-ORT When 07/21/2019 02:00 PM EST Where: [facility] 2ND FLOOR [place] [id number]- Medications What How Much When Instructions Next [...] activities are safe for you. ??? Take bvsr-nnw-dxgcbeo and prescription medicines only as told by [...] 12/28/2017 Document Revised: 03/07/2018 Document Reviewed: 12/28/2017 ElseRecommendo Interactive Patient Education ?? 2019 [employer] Inc. General Anesthesia, Adult, Care After This [...] activities are safe for you. ??? Take xppr-mac-qppgchl and prescription medicines only as told by [...] 10/15/2001 Document Revised: 02/22/2018 Document Reviewed: 02/22/2018 [employer] Interactive Patient Education ?? 2019 [employer] Inc. Knee Arthroscopy, Care After Refer to [...] activities are safe for you. ??? Perform mbhxp-hb-ktnhuw exercises only as directed by your health [...] 01/26/2006 Document Revised: 12/08/2016 Document Reviewed: 07/05/2015 [employer] Interactive Patient Education ?? 2018 [employer]. acetaminophen and hydrocodone (a SEET a MIN oh fen and laurie droe KOE done) Hycet, Lorcet, Amboy, Verdrocet, Vicodin, Xodol, Zamicet What is the [...] may report side effects to FDA at 5-923-XKT-8416. What other drugs will affect acetaminophen and [...] affect acetaminophen and hydrocodone, including prescription and dufl-ivv-oaavvaf medicines, vitamins, and herbal products. Not all [...] to ensure that the information provided by [employer]. ('U.S. Silicatum') is accurate, up-to-date, and complete, but no guarantee is made to that effect. Drug information contained herein may be time sensitive. [employer] information has been compiled for use by healthcare practitioners and consumers in the [place] and therefore [employer] does not warrant that uses outside of the [place] are appropriate, unless specifically indicated otherwise. PressPads drug information does not endorse drugs, diagnose patients or recommend therapy. PressPads drug information is an informational resource designed [...] with your doctor, nurse or pharmacist. Copyright 0733-4679 [employer]. Version: 15.02. Revision Date: 05/27/2018. Emergency Awareness [...] Assistance with quitting is available by contacting 2-509-KDQQ-NOW. This is a free resource providing counseling, [...] was given the opportunity to ask questions. Patient/Rubber Ball Finisher Name: Patient/Rubber Ball Finisher Signature: Relationship to Patient: Clinician/Hospital Rubber Ball Finisher Signature: Date: documented in this encounter Plan of Treatment Not on file documented as of this encounter Visit Diagnoses Not on filedocumented in this encounter
--- OUTSIDE RECORDS SUMMARY | 2025-01-05 08:23 | XMS_ITS | Encounter Summary ---
Author Organization [employer] Address [address] [place] [address] Care Team Providers Care Supervisor Insulation Name Role Phone Unavailable Primary Care Provider Unavailabl e Encounter Details Date Type Department Care Team (Late st Contact Info) Description 07/10/2019 Transcribed Document [facility] [place] [facility] [place] [address] ProviderBrigida MD [address] [place] [address] Social History Tobacco Use Types Packs/Day [...] - Historical ProviderMD - 07/10/2019 7:57 AM ADMISSION DISCHARGE RN Diane [facility] OR PACU Summary Primary Physician: SURY SHARMA MD-ORGenia Finalized Date/Time: 07/10/19 09:18:01 Pt. Name: HUGO AGUILAR JR, D.O.B./Sex: 1955 Male Med Rec #: [id number] Physician: SURY SHARMA MD-ORT Financial #: [id number] Pt. Type: O Room/Bed: Admit/Disch: 07/10/19 05:55:00 - Institution: [facility] OR PACU Case Times Entry 1 In PACU I 07/10/19 08:26:00 Ready for PACU 07/10/19 09:00:00 Discharge Discharge from PACU 07/10/19 09:00:00 I Last Modified By: Mariah Guerra, RN 07/10/19 09:17:59 [facility] OR PACU Case Times Audit 07/10/19 09:17:59 Process Safety Engineering Technologist: CARRIEC Modifier: CARRIEC 1 <*> Ready for PACU Discharge 07/10/19 08:56:00 1 <*> Discharge from PACU I 07/10/19 08:56:00 07/10/19 08:49:40 Process Safety Engineering Technologist: CARRIEC Modifier: CARRIEC <+> 1 Discharge from PACU I Finalized By: Mariah Guerra RN Document Signatures Signed By: Mariah Guerra RN 07/10/19 09:18 documented in this encounter Plan of Treatment Not on file documented as of this encounter Visit Diagnoses Not on filedocumented in this encounter
--- OUTSIDE RECORDS SUMMARY | 2025-01-05 08:23 | XMS_ITS | Encounter Summary ---
Author Organization [employer] iatives Address [address] [place] [address] Care Team Providers Care Meteorological Equipment Repairer Name Role Phone Unavailable Primary Care Provider Unavailabl e Encounter Details Date Type Department Care Team (Late st Contact Info) Description 07/10/2019 Transcribed Document [facility] Family Medicine [facility] [place] [address] ProviderBrigida MD [address] [place] [address] Social History Tobacco Use Types Packs/Day [...] - Historical ProviderMD - 07/10/2019 7:57 AM CRIMINAL LAWYER [facility] OR PostOp Summary Primary Physician: SURY SHARMA MD-ORGenia Finalized Date/Time: 07/10/19 10:03:33 Pt. Name: HUGO AGUILAR JR, D.O.B./Sex: 1955 Male Med Rec #: [id number] Physician: SURY SHARMA MD-ORT Financial #: [id number] Pt. Type: O Room/Bed: Admit/Disch: 07/10/19 05:55:00 - Institution: [facility] OR PostOp Case Times Entry 1 In PACU II 07/10/19 09:10:00 Ready for PACU II 07/10/19 10:00:00 Discharge Discharge from PACU 07/10/19 10:00:00 II Last Modified By: Laquita Romero RN 07/10/19 10:03:30 [facility] OR PostOp Case Times Audit 07/10/19 10:03:30 Senior Net Software Engineer: [id number] Modifier: [id number] <+> 1 Ready for PACU II Discharge <+> 1 Discharge from PACU II Finalized By: Laquita Romero RN Document Signatures Signed By: Laquita Romero RN 07/10/19 10:03 documented in this encounter Plan of Treatment Not on file documented as of this encounter Visit Diagnoses Not on filedocumented in this encounter
--- OUTSIDE RECORDS SUMMARY | 2025-01-05 08:23 | XMS_ITS | Encounter Summary ---
Author Organization [employer] Address [address] [place] [address] Care Team Providers Care Propeller Mechanic Name Role Phone Unavailable Primary Care Provider Unavailabl e Encounter Details Date Type Department Care Team (Late st Contact Info) Description 07/10/[address] [facility] Family Medicine [facility] [place] [address] ProviderBrigida MD [address] [place] [address] Social History Tobacco Use Types Packs/Day [...] - Historical ProviderMD - 07/10/2019 7:17 AM HEAD COOK Pre Procedure Adult Entered On: 07/10/2019 7:21 EST Performed On: 07/10/2019 7:17 EST by RONNY BLISS RN Height and Weight, Clinical Dosing Height Source : Stated Height Entry Format : [place] Height, Feet : 5 ft(Converted to: 152 cm, 60 Inch) Height, Inches : 7 Inch(Converted to: 0 ft 7 Inch, 17.78 cm) Clinical Height : 170.18 cm Weight Source : Standing scale Weight Entry Format : [place] Clinical Dosing Weight : 86.36 kg Weight, Pounds : 190 lb Body Surface Area (BSA) : 1.98 m2 Body Mass Index : 29.8 kg/m2 (HI) [place]ons Body Weight : 65 kg RONNY BLISS [...] RONNY BLISS RN - 07/10/2019 7:17 EST [place] Suicide Severity Rating Scale (C-SSRS) CSSRS Past [...] Arrival on Unit : Ambulatory Support Person/Patient Plating And Point Assembly Supervisor : Yes Support Person/Pt Rep Name : Faviola Support Person/Pt Rep Contact Information : [phone] Want Family/Rep/Phys Notified of Admit : No Emergency Contact #1 : Faviola Brown Emergency Contact #1 Emergency Contact #1 Relationship : Emergency Contact #2 : . Emergency Contact #2 Phone Number : . Emergency Contact #2 Relationship : . Information Obtained From : Patient Primary Language : Guamanian Preferred Communication Mode : Verbal Communication Barrier [...] Scale Risk Level : 25-45 Medium Risk Montgomery Fall Interventions : Adequate lighting, Bed in [...]
--- OUTSIDE RECORDS SUMMARY | 2025-01-05 08:23 | XMS_ITS | Encounter Summary ---
Author Organization [facility] Address [address] [place] [address] Care Team Providers Care Turnaround Engineer Name Role Phone Zhao Harris MD Primary Care Provider [phone] Encounter Details Date Type Department Care Team [...] drink first t manav in the morning (EYE-ORTHOPAEDIC GENERAL) to steady your nerves or to get [...] Upcoming Encounters Date Type Department Care Team ([facility] st Contact Info) Description 01/06/2025 8:30 AM EDT Clinical Support [facility] Hematology/BMT and Cellular Therapy Program [address] [phone] 01/06/2025 9:00 AM EDT Procedure Visit [facility]ematology/BMT and Cellular Therapy Program [address] [phone] Kierra Novak, DRIP MOLDER [address] [facility] [address] [place] [phone] 01/13/2025 9:30 AM EDT Clinical Support [facility] Hematology/BMT and Cellular Therapy Program [address] [phone] 01/13/2025 10:00 AM EDT Office Visit [facility] Hematology/BMT and Cellular Therapy Program [address] [phone] Isaura Wynn, DRIP MOLDER [address] [facility] [address] [place] [phone] 01/13/2025 11:30 AM EDT Appointment [facility] [address] [place] [phone] 01/14/2025 2:00 PM EDT Appointment [facility] [address] [place] [phone] 01/15/2025 2:00 PM EDT Appointment [facility] [address] [place] [phone] 01/16/2025 2:00 PM EDT Appointment [facility] [address] [place] [phone] 01/17/2025 2:00 PM EDT Appointment [facility] [address] [place] [address] 01/18/2025 2:00 PM EDT Appointment [facility] [address] [place] [address] 01/19/2025 2:00 PM EDT Appointment [facility] [address] [place] [address] 03/10/2025 11:20 AM EDT Office Visit [facility] Head, Neck & Respiratory 800 [facility], [address]nd [place] [address] Elsa Razo, DRIP MOLDER [address] [place] [address] documented as of this encounter Visit Diagnoses [...] documented as of this encounter Care Teams Turnaround Engineer Relationship Specialty Start Date End Date Zhao Harris MD [address] [place] [phone] PCP - General 12/03/20 documented as of this encounter
--- OUTSIDE RECORDS SUMMARY | 2025-01-05 08:23 | XMS_ITS | Encounter Summary ---
Author Organization [facility] Address [address] [place] [address] Care Team Providers Care Wheel Borer Name Role Phone Zhao Harris MD Primary Care Provider [phone] Encounter Details Date Type Department Care Team [...] drink first t manav in the morning (EYE-SEMICONDUCTOR DEVELOPMENT TECHNICIAN) to steady your nerves or to [...] Upcoming Encounters Date Type Department Care Team ([facility] st Contact Info) Description 01/06/2025 8:30 AM EDT Clinical Support [facility] Hematology/BMT and Cellular Therapy Program [address] [phone] 01/06/2025 9:00 AM EDT Procedure Visit [facility] Hematology/BMT and Cellular Therapy Program [address] [phone] Kierra Novak, LOBBY ATTENDANT 800 [facility] [address] [place] [phone] 01/13/2025 9:30 AM EDT Clinical Support [facility] Hematology/BMT and Cellular Therapy Program [address] [phone] 01/13/2025 10:00 AM EDT Office Visit [facility] Hematology/BMT and Cellular Therapy Program [address] [phone] Isaura Wynn, LOBBY ATTENDANT 800 [facility] [address] [place] [phone] 01/13/2025 11:30 AM EDT Appointment [facility] [address] [place] [phone] 01/14/2025 2:00 PM EDT Appointment [facility] [address] [place] [phone] 01/15/2025 2:00 PM EDT Appointment [facility] [address] [place] [phone] 01/16/2025 2:00 PM EDT Appointment [facility] [address] [place] [phone] 01/17/2025 2:00 PM EDT Appointment [facility] [address] [place] [address] 01/18/2025 2:00 PM EDT Appointment [facility] [address] [place] [address] 01/19/2025 2:00 PM EDT Appointment [facility] [address] [place] [address] 03/10/2025 11:20 AM EDT Office Visit [facility] Head, Neck & Respiratory [address] [facility], [address] [place] [address] Elsa Razo, LOBBY ATTENDANT [address] [place] [address] documented as of this encounter Visit Diagnoses [...] documented as of this encounter Care Teams Wheel Borer Relationship Specialty Start Date End Date Zhao Harris MD [address] [place] [phone] PCP - General 12/03/20 documented as of this encounter
--- OUTSIDE RECORDS SUMMARY | 2025-01-05 08:24 | XMS_ITS | Clinical Summary ---
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 90 tablet 3 09/11/19 25 025 Discontinued nicotine (Nicoderm CQ) 21 MG/24HR patch Place 1 patch on the skin 1 (one) time each day at the same time. 28 patch 09/30/19 25 025 Discontinued isosorbide mononitrate ER (Imdur) 30 MG 24 hr tablet Take 1 tablet (30 mg) by mouth daily. Do not crush or chew. 30 tablet 11 10/04/19 25 025 Discontinued hydrocortisone 2.5 % cream Apply 1 Application topically as needed. 10/31/19 25 025 Discontinued(R eorder) venetoclax (Venclexta) 50 MG tabletIndicati ons:Myelodyspl yon (myelodysplast ic syndrome) (CMS/HCC) Take 1 tablet by mouth daily. Days 1-14 14 tablet 11/19/19 25 025 Discontinued venetoclax (Venclexta) 10 MG tabletIndicati ons:Myelodyspl yon (myelodysplast ic syndrome) (CMS/HCC) Take 2 tablets by mouth daily. Days 1-14. Take with 50 mg tablets for a total of 70 mg daily 28 tablet 11/19/19 025 Discontinued lidocaine-pril ocaine (Emla) cream Apply topically 1 time for 1 dose. 1 each 3 12/10/19 25 025 Discontinued venetoclax (Venclexta) 50 MG tabletIndicati ons:Myelodyspl yon (myelodysplast ic syndrome) (CMS/HCC) Take 1 tablet by mouth daily for 14 days. 14 tablet 12/17/19 25 025 venetoclax (Venclexta) 10 MG tabletIndicati ons:Myelodyspl yon (myelodysplast ic syndrome) (CMS/HCC) Take 2 tablets by mouth daily for 14 days. 28 tablet 12/17/19 25 025 Hospital, Clinic, or Other Facility Administered Medication [...] Encounters Date Type Department Care Team Description 01/01/2025 [facility] [place] [facility] [address] [facility] [place] [address] Ra Best MD 12/23/2024 Orders Only [facility] Hematology/BMT and Cellular Therapy Program [address] [facility] [place] [phone] Adam Conway, RN Myelodysplasia (myelodysplastic syndrome) (CMS/HCC) (Primary Dx) 12/22/2024 9:58 AM EDT - 12/22/2024 11:59 PM EDT Hospital Encounter [facility] [address] [place] [address] Myelodysplasia (myelodysplastic syndrome) (CMS/HCC) (Primary Dx) Discharge Disposition: Home or Self Care 12/22/2024 8:24 AM EDT - 12/22/2024 9:57 AM EDT Hospital Encounter [facility] [address] [place] [address] Myelodysplasia (myelodysplastic syndrome) (CMS/HCC) (Primary Dx); Thrombocytopenia (CMS/HCC) Discharge Disposition: Home or Self Care 12/22/2024 Travel 12/21/2024 8:30 AM EDT - 12/21/2024 11:59 PM EDT Hospital Encounter [facility] 1 [address] [place] [address] Myelodysplasia (myelodysplastic syndrome) (CMS/HCC) (Primary Dx) Discharge Disposition: Home or Self Care 12/21/2024 Travel 12/20/2024 8:08 AM EDT - 12/20/2024 11:59 PM EDT Hospital Encounter [facility] 1 [address] [place] [address] Myelodysplasia (myelodysplastic syndrome) (CMS/HCC) (Primary Dx); Thrombocytopenia (CMS/HCC); SOB (shortness of breath) Discharge Disposition: Home or Self Care 12/20/2024 Travel 12/19/2024 8:30 AM EDT - 12/19/2024 11:59 PM EDT Hospital Encounter [facility] 2 [address] [place] [address] Myelodysplasia (myelodysplastic syndrome) (CMS/HCC) (Primary Dx) Discharge Disposition: Home or Self Care 12/19/2024 Travel 12/18/2024 9:46 AM EDT - 12/18/2024 11:59 PM EDT Hospital Encounter [facility] [address] [place] [address] Myelodysplasia (myelodysplastic syndrome) (CMS/HCC) (Primary Dx) Discharge Disposition: Home or Self Care 12/18/2024 8:30 AM EDT - 12/18/2024 9:45 AM EDT Hospital Encounter [facility] [address] [place] [address] Myelodysplasia (myelodysplastic syndrome) (CMS/HCC) (Primary Dx); Thrombocytopenia (CMS/HCC) Discharge Disposition: Home or Self Care 12/18/2024 Travel 12/17/2024 8:23 AM EDT - 12/17/2024 11:59 PM EDT Hospital Encounter [facility] [address] [place] [address] Myelodysplasia (myelodysplastic syndrome) (CMS/HCC) (Primary Dx); Thrombocytopenia (CMS/HCC) Discharge Disposition: Home or Self Care 12/17/2024 Travel 12/16/2024 11:00 AM EDT - 12/16/2024 11:59 PM EDT Hospital Encounter [facility] [address] [place] [address] Myelodysplasia (myelodysplastic syndrome) (CMS/HCC) (Primary Dx) Discharge Disposition: Home or Self Care 12/16/2024 10:00 AM EDT - 12/16/2024 10:59 AM EDT Hospital Encounter [facility] [address] [place] [address] Myelodysplasia (myelodysplastic syndrome) (CMS/HCC) (Primary Dx); Thrombocytopenia (CMS/HCC) Discharge Disposition: Home or Self Care 12/16/2024 8:30 AM EDT Office Visit [facility] Hematology/BMT and Cellular Therapy Program [address] [place] [phone] Isaura Wynn APRN Myelodysplasia (myelodysplastic syndrome) (CMS/HCC) (Primary Dx) 12/16/2024 8:00 AM EDT Clinical Support [facility] CC Hematology/BMT and Cellular Therapy Program [address] [place] [phone] 12/16/2024 Orders Only [facility] Hematology/BMT and Cellular Therapy Program [address] [place] [phone] Christina Ramos MD Myelodysplasia (myelodysplastic syndrome) (CMS/HCC) (Primary Dx) 12/16/2024 Travel 12/12/2024 Orders Only [facility] Hematology/BMT and Cellular Therapy Program [address] [place] [phone] Gricel Gonzalez RN 12/11/2024 2:30 PM EDT Office Visit [facility] Interventional Radiology [address] [place] [address] Judy Leung APRN, DNP Port-A-Cath in place (Primary Dx); Myelodysplasia (myelodysplastic syndrome) (CMS/HCC) 12/11/2024 1:00 PM EDT Clinical Support [facility] [address] 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); Pancytopenia due to chemotherapy (CMS/HCC); Immunosuppressed due to chemotherapy 12/11/2024 8:30 AM EDT Clinical Support [facility] Hematology/BMT and Cellular Therapy Program [address] [phone] Myelodysplasia (myelodysplastic syndrome) (CMS/HCC) 12/11/2024 Orders Only [facility] Hematology/BMT and Cellular Therapy Program [address] [place] [address] [place] [address] Shahla Mejia RN 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) (Primary Dx) 12/11/2024 Travel 12/09/2024 1:30 PM EDT Clinical Support [facility] [address] [facility] [place] [address] Myelodysplasia (myelodysplastic syndrome) (CMS/HCC) (Primary Dx); Thrombocytopenia (CMS/HCC) 12/09/2024 9:00 AM EDT Procedure Visit [facility] Hematology/BMT and Cellular Therapy Program [address] [place] [address] Kierra Novak APRN Myelodysplasia (myelodysplastic syndrome) (CMS/HCC) 12/09/2024 8:30 AM EDT Clinical Support [facility] Hematology/BMT and Cellular Therapy Program [address] [place] [phone] 12/09/2024 Telephone [facility] Hematology/BMT and Cellular Therapy Program [address] [place] [address] Essie Ricks RN 12/09/2024 Travel 12/08/2024 Travel 12/04/2024 Telephone [facility] Interventional Radiology [address] [facility] [address] [place] [address] Martha William 12/01/2024 8:41 AM EDT - 12/01/2024 11:59 PM EDT Hospital Encounter [facility] Interventional Radiology [address] [place] [address] Gela Singer Thrombocytopenia (CMS/HCC) (Primary Dx); Myelodysplasia (myelodysplastic syndrome) (CMS/HCC) Discharge Disposition: Home or Self Care 12/01/2024 Travel 11/26/2024 10:00 AM EDT Office Visit [facility] Interventional Radiology [address] [facility] [address] [place] [address] Latoya Nunez, OIL AND GAS EXPLORATION TECHNICIAN Preop examination (Primary Dx) 11/26/2024 Travel 11/25/2024 Telephone [facility]ology/BMT [facility] Cellular Therapy Program [address] [place] [address] Michelle Mast Distress Screen Follow-up 11/24/2024 2:30 PM EDT - 11/24/2024 11:59 PM EDT Hospital Encounter [facility] 1 [address] [place] [address] Discharge Disposition: Home or Self Care 11/24/2024 1:59 PM EDT - 11/24/2024 2:29 PM EDT Hospital Encounter [facility] 1 [address] [place] [address] Myelodysplasia (myelodysplastic syndrome) (CMS/HCC) (Primary Dx); Thrombocytopenia (CMS/HCC) Discharge Disposition: Home or Self Care 11/24/2024 Travel 11/23/2024 1:43 PM EDT - 11/23/2024 11:59 PM EDT Hospital Encounter [facility] 1 [address] [place] [address] Myelodysplasia (myelodysplastic syndrome) (CMS/HCC) (Primary Dx) Discharge Disposition: Home or Self Care 11/23/2024 Travel 11/22/2024 1:59 PM EDT - 11/22/2024 11:59 PM EDT Hospital Encounter [facility] 1 [address] [place] [address] Myelodysplasia (myelodysplastic syndrome) (CMS/HCC) (Primary Dx); Thrombocytopenia (CMS/HCC) Discharge Disposition: Home or Self Care 11/22/2024 Travel 11/21/2024 1:30 PM EDT - 11/21/2024 11:59 PM EDT Hospital Encounter [facility] 1 [address] [place] [address] Myelodysplasia (myelodysplastic syndrome) (CMS/HCC) (Primary Dx) Discharge Disposition: Home or Self Care 11/21/2024 Travel 11/20/2024 2:06 PM EDT - 11/20/2024 11:59 PM EDT Hospital Encounter [facility] 1 [address] [place] [address] Myelodysplasia (myelodysplastic syndrome) (CMS/HCC) (Primary Dx) Discharge Disposition: Home or Self Care 11/20/2024 1:36 PM EDT - 11/20/2024 2:05 PM EDT Hospital Encounter [facility] Infusion Clinic 1 [address] [place] [address] Myelodysplasia (myelodysplastic syndrome) (CMS/HCC) (Primary Dx); Thrombocytopenia (CMS/HCC) Discharge Disposition: Home or Self Care 11/20/2024 Travel 11/19/2024 2:00 PM EDT - 11/19/2024 11:59 PM EDT Hospital Encounter [facility] 1 [address] [place] [address] Myelodysplasia (myelodysplastic syndrome) (CMS/HCC) (Primary Dx) Discharge Disposition: Home or Self Care 11/19/2024 Travel 11/19/2024 Orders Only [facility] Hematology/BMT and Cellular Therapy Program [address] [place] [address] Adam Conway, RN Myelodysplasia (myelodysplastic syndrome) (CMS/HCC) (Primary Dx) 11/18/2024 12:25 PM EDT - 11/18/2024 11:59 PM EDT Hospital Encounter [facility] 1 [address] [place] [address] Myelodysplasia (myelodysplastic syndrome) (CMS/HCC) (Primary Dx); Thrombocytopenia (CMS/HCC) Discharge Disposition: Home or Self Care 11/18/2024 11:00 AM EDT Office Visit [facility] Hematology/BMT [facility] Cellular Therapy Program [address] [phone] Isaura Wynn APRN Myelodysplasia (myelodysplastic syndrome) (CMS/HCC) (Primary Dx) 11/18/2024 10:30 AM EDT Clinical Support [facility]ology/BMT [facility] Cellular Therapy Program [address] [phone] 11/18/2024 Telephone [facility] [address] [place] [phone] Maia Velasquez, PharmD 11/18/2024 Telephone [facility] Hematology/BMT [facility] Cellular Therapy Program [address] [address] Brittny Mahoney RN 11/18/2024 Telephone [facility]ology[facility]MT [facility] Cellular Therapy [facility] [address] [phone] Gricel Gonzalez RN 11/18/2024 Travel 11/17/2024 Travel 11/10/2024 3:00 PM EDT - 11/10/2024 11:59 PM EDT Hospital Encounter [facility] [address] [place] [address] Myelodysplasia (myelodysplastic syndrome) (CMS/HCC) (Primary Dx); Thrombocytopenia (CMS/HCC) Discharge Disposition: Home or Self Care 11/10/2024 2:00 PM EDT Procedure Visit [facility] Hematology/BMT and Cellular Therapy Program [address] [facility], [address] [place] [address] Elaina Boss PA Myelodysplasia (myelodysplastic syndrome) (CMS/HCC) (Primary Dx) 11/10/2024 1:30 PM EDT Clinical Support [facility] Hematology/BMT and Cellular Therapy Program [address] [facility], [address] [place] [address] [place] [address] Eliana Vicente RN 11/10/2024 Travel 11/05/2024 11:00 AM EDT Clinical Support [facility] [address] [facility], [address] [place] [phone] Dyspnea on exertion 11/05/2024 10:00 AM EDT Office Visit [facility] [address] [phone] Elsa Razo, OIL AND GAS EXPLORATION TECHNICIAN Pre-transplant evaluation for stem cell transplant (Primary Dx); Myelodysplasia (myelodysplastic syndrome) (CMS/HCC); Dyspnea on exertion; Coronary artery disease involving gakona coronary artery of gakona heart without angina pectoris; Thrombocytopenia (CMS/HCC) 11/05/2024 Results Follow-Up [facility] [address] [facility], [address] [place] [phone] Elsa Razo, ESTRELLA 11/05/2024 Travel 11/03/2024 2:31 PM EDT - 11/03/2024 6:28 PM EDT Emergency [facility] Emergency Department [address] [place] [address] Kyle Bearden MD Symptomatic anemia (Primary Dx); Thrombocytopenia (CMS/HCC); Neutropenia, unspecified type (CMS/HCC) Discharge Disposition: Home or Self Care 11/03/2024 Travel 11/03/2024 Telephone [facility] Hematology/BMT and Cellular Therapy Program [address] [facility] [facility] [place] [address] Virgen Vargas MD 10/29/2024 Telephone [facility] Hematology/BMT and Cellular Therapy Program [address] [facility], [address] [place] [address] [place] [address] Virgen Vargas MD 10/26/2024 1:20 PM EDT - 10/26/2024 11:59 PM EDT Hospital Encounter [facility] 2 [address] [place] [address] Myelodysplasia (myelodysplastic syndrome) (CMS/HCC) (Primary Dx); Thrombocytopenia (CMS/HCC) Discharge Disposition: Home or Self Care 10/26/2024 Travel 10/25/2024 2:50 PM EDT - 10/25/2024 11:59 PM EDT Hospital Encounter [facility] 2 [address] [place] [address] Myelodysplasia (myelodysplastic syndrome) (CMS/HCC) (Primary Dx) Discharge Disposition: Home or Self Care 10/25/2024 Travel 10/24/2024 2:12 PM EDT - 10/24/2024 11:59 PM EDT Hospital Encounter [facility] [address] [place] [address] Myelodysplasia (myelodysplastic syndrome) (CMS/HCC) (Primary Dx) Discharge Disposition: Home or Self Care 10/24/2024 Travel 10/24/2024 Orders Only [facility] Hematology/BMT and Cellular Therapy Program [address] [facility], [address] [place] [phone] Maia Kaplan RN 10/24/2024 Telephone [facility]ology[facility]BMT [facility] Cellular Therapy Program [address] [facility], [address] [place] [phone] Virgen Vargas MD 10/23/2024 2:53 PM EDT - 10/23/2024 11:59 PM EDT Hospital Encounter [facility] 2 [address] [place] [address] Myelodysplasia (myelodysplastic syndrome) (CMS/HCC) (Primary Dx) Discharge Disposition: Home or Self Care 10/23/2024 Travel 10/22/2024 3:39 PM EDT - 10/22/2024 11:59 PM EDT Hospital Encounter [facility] 2 [address] [place] [address] Thrombocytopenia (CMS/HCC) (Primary Dx); Myelodysplasia (myelodysplastic syndrome) (CMS/HCC) Discharge Disposition: Home or Self Care 10/22/2024 Travel 10/21/2024 3:08 PM EDT - 10/21/2024 11:59 PM EDT Hospital Encounter [facility] 2 [address] [place] [address] Myelodysplasia (myelodysplastic syndrome) (CMS/HCC) (Primary Dx); SOB (shortness of breath) Discharge Disposition: Home or Self Care 10/21/2024 Travel 10/20/2024 6:09 PM EDT - 10/20/2024 11:59 PM EDT Hospital Encounter [facility] [address] [place] [address] Myelodysplasia (myelodysplastic syndrome) (CMS/HCC) Discharge Disposition: Home or Self Care 10/20/2024 2:42 PM EDT - 10/20/2024 6:08 PM EDT Hospital Encounter [facility] 1 [address] [place] [address] Myelodysplasia (myelodysplastic syndrome) (CMS/HCC) (Primary Dx); SOB (shortness of breath); Smoker Discharge Disposition: Home or Self Care 10/20/2024 Travel 10/19/2024 Travel 10/17/2024 Telephone [facility] Hematology[facility]BMT [facility] Cellular Therapy Program [address] [place] [address] Virgen Vargas MD 10/16/2024 Telephone [facility] Hematology/BMT and Cellular Therapy Program [address] [place] [address] Virgen Vargas MD 10/15/2024 Lab Requisition [facility] [address] [place] [address] Virgen Vargas MD Abnormal finding of blood chemistry, unspecified 10/14/2024 Telephone [facility] [address] [place] [phone] Andrea Burns, PharmD New Start 10/13/2024 2:30 PM EDT Office Visit [facility] Hematology/BMT and Cellular Therapy Program [address] [place] [phone] Virgen Vargas MD Myelodysplasia (myelodysplastic syndrome) (CMS/HCC) (Primary Dx); Encounter for antineoplastic chemotherapy 10/13/2024 2:00 PM EDT Clinical Support [facility] [address] [place] [phone] Eliana Vicente RN 10/13/2024 Telephone [facility] Therapy [facility] [address] [place] [phone] Mague Trevino RN Critical Lab Results 10/13/2024 Travel 10/06/2024 Orders Only [facility] Therapy [facility] [address] [place] [phone] Adam Conway, RN Myelodysplasia (myelodysplastic syndrome) ([facility]/HCC) (Primary Dx) 10/06/2024 Telephone [facility]ology/BMT [facility] Cellular Therapy Program [address] [place] [phone] Virgen Vargas MD from Last 3 Months Immunizations Immunization Administration [...] drink first t manav in the morning (EYE-MATTE CUTTER) to steady your nerves or to [...] [facility] Hematology/BMT and Cellular Therapy Program [address] [place] [address] [place] [address] 01/06/2025 9:00 AM EDT Procedure Visit [facility] H[facility]ology[facility]BMT [facility] Cellular Therapy Program [address] [phone] Kierra Novak, OIL AND GAS EXPLORATION TECHNICIAN 800 [facility] [address] [place] [phone] 01/13/2025 9:30 AM EDT Clinical Support [facility]ology[facility]MT [facility] Cellular Therapy Program [address] [address] 01/13/2025 10:00 AM EDT Office Visit [facility] Hematology[facility]BMT [facility] Cellular Therapy Program [address] [phone] Isaura Wynn, OIL AND GAS EXPLORATION TECHNICIAN 800 [facility] [address] [place] [phone] 01/13/2025 11:30 AM EDT Appointment [facility] [address] [place] [address] 01/14/2025 2:00 PM EDT Appointment [facility] [address] [place] [address] 01/15/2025 2:00 PM EDT Appointment [facility] [address] [place] [address] 01/16/2025 2:00 PM EDT Appointment [facility] [address] [place] [address] 01/17/2025 2:00 PM EDT Appointment [facility] [address] [place] [address] 01/18/2025 2:00 PM EDT Appointment [facility] [address] [place] [address] 01/19/2025 2:00 PM EDT Appointment [facility] [address] [place] [address] 03/10/2025 11:20 AM EDT Office Visit [facility] [address] [facility], [address]nd [place] [address] Elsa Razo, OIL AND GAS EXPLORATION TECHNICIAN [address] [place] [address] Health Maintenance Due Date Last Done Comments [facility]-Medicare Annual Wellness (AWV) 1955 [facility]-Infant/Child/Adol SDOH Screenings 1955 [facility]- SDOH Screenings 1973 [...] 2015 [facility]-Abdominal Aortic Aneurysm (AAA) Screening 2020 [id number] Vaccine (3 - Pfizer risk series) 11/11/2020 [...] this topic Medical Devices Implanted Type Area Auto Body Repairer Device Identifier Shelf Expiration Date Model / Serial / Lot Port Nika Magana 8fr - [id number] Implanted:Qty: 1 on 12/01/2024 [facility][id number] / / Procedures Procedure Name Priority Date/Time [...] 1:34 PM EDT Myelodysplasia (myelodysplastic syndrome) (CMS/HCC) HEPATITIS C ANTIBODY W/REFLEX TO HCV QUANT PCR Routine 09/29/2024 12:51 PM EDT Myelodysplasia (myelodysplastic syndrome) (CMS/HCC) from Last 3 Months or Most Recently Relevant to Health Maintenance Results * Transfuse platelets (12/22/2024 12:04 PM EDT) Only the most recent of12 resultswithin the time period is included. us Kayli CHIU BLOOD TRANSFUSION ORDERA BLES Final Result * (ABNORMAL) Platelet count (12/22/2024 10:57 AM EDT) Only the most recent of11 resultswithin the time period is included. Platelet Count 36(L) 155 - 369 10*3/uL LAB HEMATOLOGY METHOD 12/22/2024 11:14 AM EDT [facility] Blood Venous blood specimen / Unknown Venipuncture / Unknown 12/22/2024 10:57 AM EDT 12/22/2024 11:04 AM EDT Virgen Vargas MD LAB BLOOD ORDERABLES Final Re sult [facility] [address] [place] [address] * Prepare Leukocyte Reduced Platelets: 1 Units (12/22/2024 9:44 AM EDT) Only the most recent of13 resultswithin the time period is included. [facility] Product Code Q7620O90 BLOO D BANK Dispense Status Transfused BLOOD BANK Blood Expiration Date [id number] BLOOD BANK Unit Number [id number] CH B LOOD BANK Product Blood Type 0600 BLOOD BANK Blood Type A- CH BLOOD BANK Blood Venous blood specimen / Unknown Kayli CHIU BLOOD BANK PRODUCT ORDER VIKAS Final Result Performing Organization Address City/[facility]/ZIP Co de Phone Number BLOOD BANK [address] [place] [address] * (ABNORMAL) CBC and Differential (12/22/2024 8:53 AM EDT) Only the most recent of19 resultswithin the time period is included. WBC Count 0.50(LL) 3.70 - 10.30 10*3/uL LAB HEMATOLOGY METHOD 12/22/2024 11:33 AM EDT [facility] RBC Count 2.90(L) 4.60 - 6.10 10*6/uL LAB HEMATOLOGY METHOD 12/22/2024 11:33 AM EDT [facility] HGB 8.9(L) 13.7 - 17.5 g/dL LAB HEMATOLOGY METHOD 12/22/2024 11:33 AM EDT [facility] HCT 25.0(L) 40.0 - 51.0 % LAB HEMATOLOGY METHOD 12/22/2024 11:33 AM EDT [facility] Platelet Count 5(LL) 155 - 369 10*3/uL LAB HEMATOLOGY METHOD 12/22/2024 11:33 AM EDT [facility] MCV 86 79 - 98 fL LAB HEMATOLOGY METHOD 12/22/2024 11:33 AM EDT [facility] MCH 30.7 26.0 - 32.0 pg LAB HEMATOLOGY METHOD 12/22/2024 11:33 AM EDT [facility] MCHC 35.6(H) 30.7 - 35.5 g/dL LAB HEMATOLOGY METHOD 12/22/2024 11:33 AM EDT [facility] RDW 15.6(H) 11.5 - 14.5 % LAB HEMATOLOGY METHOD 12/22/2024 11:33 AM EDT [facility] MPV LAB HEMATOLOGY METHOD 12/22/2024 11:33 AM EDT [facility] Comment:Not Measured nRBC 0.0 <=0.0 per 100 WBCs LAB HEMATOLOGY METHOD 12/22/2024 11:33 AM EDT [facility] Differential Type Automated LAB HEMATOLOGY METHOD 12/22/2024 11:33 AM EDT [facility] Neutrophils % 12 % LAB HEMATOLOGY METHOD 12/22/2024 11:33 AM EDT [facility] Lymphocytes % 86 % LAB HEMATOLOGY METHOD 12/22/2024 11:33 AM EDT [facility] Monocytes % 2 % LAB HEMATOLOGY METHOD 12/22/2024 11:33 AM EDT [facility] Eosinophils % 0 % LAB HEMATOLOGY METHOD 12/22/2024 11:33 AM EDT [facility] Basophils % 0 % LAB HEMATOLOGY METHOD 12/22/2024 11:33 AM EDT [facility] Immature Granulocytes % 0 % LAB HEMATOLOGY METHOD 12/22/2024 11:33 AM EDT [facility] Neutrophils Absolute 0.06(LL) 1.60 - 6.10 10*3/uL LAB HEMATOLOGY METHOD 12/22/2024 11:33 AM EDT [facility] Lymphocytes Absolute 0.43(L) 1.20 - 3.90 10*3/uL LAB HEMATOLOGY METHOD 12/22/2024 11:33 AM EDT [facility] Monocytes Absolute 0.01(L) 0.30 - 0.90 10*3/uL LAB HEMATOLOGY METHOD 12/22/2024 11:33 AM EDT [facility] Eosinophils Absolute 0.00 0.00 - 0.50 10*3/uL LAB HEMATOLOGY METHOD 12/22/2024 11:33 AM EDT [facility] Basophils Absolute 0.00 0.00 - 0.10 10*3/uL LAB HEMATOLOGY METHOD 12/22/2024 11:33 AM EDT [facility] Immature Granulocytes Absolute 0.00 0.00 - 0.06 10*3/uL LAB HEMATOLOGY METHOD 12/22/2024 11:33 AM EDT [facility] Blood Venous blood specimen / Unknown Venipuncture / Unknown 12/22/2024 8:53 AM EDT 12/22/2024 8:59 AM EDT Narrative [facility] - 12/22/2024 11:33 AM EDT Therapeutic decision making should be based on absolute values, rather than percentages. us Virgen Vargas MD LAB BLOOD ORDERABLES Final Re sult [facility] [address] [place] [address] * (ABNORMAL) Comprehensive Metabolic Panel, Plasma (12/22/2024 8:53 AM EDT) Only the most recent of14 resultswithin the time period is included. Glucose, Plasma 107(H) 74 - 99 mg/dL 12/22/2024 9:29 AM EDT [facility] BUN, Plasma 14 8 - 23 mg/dL 12/22/2024 9:29 AM EDT [facility] Creatinine, Plasma 0.93 0.70 - 1.20 mg/dL 12/22/2024 9:29 AM EDT [facility] BUN/Creatinine Ratio 15 12/22/2024 9:29 AM EDT [facility] Sodium, Plasma 136 136 - 145 mmol/L 12/22/2024 9:29 AM EDT [facility] Potassium, Plasma 4.3 3.6 - 4.9 mmol/L 12/22/2024 9:29 AM EDT [facility] Chloride, Plasma 106 97 - 107 mmol/L 12/22/2024 9:29 AM EDT [facility] CO2, Plasma 22 22 - 29 mmol/L 12/22/2024 9:29 AM EDT [facility] Anion Gap 8 6 - 16 mmol/L 12/22/2024 9:29 AM EDT [facility] Total Calcium, Plasma 9.1 8.9 - 10.2 mg/dL 12/22/2024 9:29 AM EDT [facility] Total Protein 7.0 6.3 - 7.9 g/dL 12/22/2024 9:29 AM EDT [facility] Albumin, Plasma 3.9 3.5 - 5.2 g/dL 12/22/2024 9:29 AM EDT [facility] AST, Plasma 16 10 - 50 U/L 12/22/2024 9:29 AM EDT [facility] ALT, Plasma 12 10 - 50 U/L 12/22/2024 9:29 AM EDT [facility] Alkaline Phosphatase, Plasma 83 40 - 115 U/L 12/22/2024 9:29 AM EDT [facility] Total Bilirubin, Plasma 0.7 0.2 - 1.1 mg/dL 12/22/2024 9:29 AM EDT [facility] eGFRcr 88.9 mL/min/1.7 3m*2 12/22/2024 9:29 AM EDT [facility] Comment:Reported eGFRcr in m L/min/1.73m2 is based the CKD-EPI 2020 equation that does not use a race coefficient. Blood Venous blood specimen / Unknown Venipuncture / Unknown 12/22/2024 8:53 AM EDT 12/22/2024 8:59 AM EDT us Virgen Vargas MD LAB BLOOD ORDERABLES Final Re sult [facility] [address] [place] [address] * Transfuse RBC, Irradiated (12/20/2024 1:31 PM EDT) Only the most recent of7 resultswithin the time period is included. us Kayli CHIU BLOOD TRANSFUSION ORDERA BLES [...] ORDERABLE S Final Result Performing Organization Address [facility] Co de Phone Number BLOOD BANK [address] * Prepare Leukocyte Reduced RBC: 1 Units, Irradiated (12/20/2024 10:01 AM EDT) Only the most recent of7 resultswithin the time period is included. Product Code [id number] CH BLOO D BANK Dispense Status Transfused BLOOD BANK Blood Expiration Date [id number] BLOOD BANK Unit Number [id number] B LOOD BANK Product Blood Type 9500 BLOOD BANK Blood Type O- BLOOD BANK Crossmatch Compatible BLOOD BANK Other Kayli CHIU BLOOD BANK PRODUCT ORDER VIKAS Final Result Performing Organization Address [facility] Co de Phone Number BLOOD BANK [address] * Exception to Standard Practice, Pathologist [...] 8:26 AM EDT 12/19/2024 7:30 AM EDT Juwan Horton MD LAB BLOOD BANK TEST ORDERAB LES Final Result Performing Organization Address [facility] Co de Phone Number BLOOD BANK [address] * Group A Streptococcus by PCR (12/16/2024 9:40 AM EDT) Group A Streptococcus PCR Result Not Detected Not Detected 12/16/2024 11:53 AM EDT [facility] Swab Pharyngeal structure / Unknown Non-blood Collection / Unknown 12/16/2024 9:40 AM EDT 12/16/2024 10:10 AM EDT Isaura Wynn APRN LAB MICROBIOLOGY - GENERAL ORD ERABLES Final Result Performing Organization Address City/[facility]/ZIP Co de Phone Number [facility] [address] [place] [address] * Streptococcus Culture (12/16/2024 9:40 AM EDT) Culture Reading Strep A No Streptococcus pyogenes or Streptococcus dysgalactiae isolated 12/17/2024 2:28 PM EDT [facility] Swab Pharyngeal structure / Unknown Non-blood Collection / Unknown 12/16/2024 9:40 AM EDT 12/16/2024 10:10 AM EDT us Isaura Wynn OIL AND GAS EXPLORATION TECHNICIAN LAB MICROBIOLOGY - GENERAL ORD ERABLES Final Result Performing Organization Address City/[facility]/ZIP Co de Phone Number [facility] [address] [place] [address] * (ABNORMAL) Uric acid (12/16/2024 8:10 AM EDT) Only the most recent of4 resultswithin the time period is included. Uric Acid, Plasma 3.0(L) 3.7 - 8.0 mg/dL 12/16/2024 8:58 AM EDT [facility] Blood Venous blood specimen / Unknown Venipuncture / Unknown 12/16/2024 8:10 AM EDT 12/16/2024 8:27 AM EDT us Isaura Wynn OIL AND GAS EXPLORATION TECHNICIAN LAB BLOOD ORDERABLES Final Res ult Performing Organization Address City/[facility]/ZIP Co de Phone Number [facility] [address] [place] [address] * Phosphorus, Plasma (12/16/2024 8:10 AM EDT) Only the most recent of4 resultswithin the time period is included. Phosphorus, Plasma 3.4 2.5 - 4.5 mg/dL 12/16/2024 8:58 AM EDT [facility] Blood Venous blood specimen / Unknown Venipuncture / Unknown 12/16/2024 8:10 AM EDT 12/16/2024 8:27 AM EDT us Isaura L Tianna OIL AND GAS EXPLORATION TECHNICIAN LAB BLOOD ORDERABLES Final Res ult Performing Organization Address City/[facility]/ZIP Co de Phone Number [facility] [address] [place] [address] * Magnesium, Plasma (12/16/2024 8:10 AM EDT) Only the most recent of4 resultswithin the time period is included. Magnesium, Plasma 2.4 1.9 - 2.4 mg/dL 12/16/2024 8:58 AM EDT [facility] Blood Venous blood specimen / Unknown Venipuncture / Unknown 12/16/2024 8:10 AM EDT 12/16/2024 8:27 AM EDT Isaura Wynn APRN LAB BLOOD ORDERABLES Final Res ult Performing Organization Address [facility] de Phone Number [facility] [address] [place] [address] * Lactate Dehydrogenase, Plasma (12/16/2024 8:10 AM EDT) Only the most recent of5 resultswithin the time period is included. LDH, Plasma 230 116 - 250 U/L 12/16/2024 8:58 AM EDT [facility] Blood Venous blood specimen / Unknown Venipuncture / Unknown 12/16/2024 8:10 AM EDT 12/16/2024 8:27 AM EDT Isaura Wynn APRN LAB BLOOD ORDERABLES Final Res ult Performing Organization Address [facility] [place] [address] * Morphology (12/11/2024 8:38 AM EDT) Only the most recent of5 resultswithin the time period is included. Elliptocytes/ Ovalocytes Present LAB HEMATOLOGY METHOD 12/11/2024 10:53 AM EDT [facility] RBC Morphology Slide Reviewed LAB HEMATOLOGY METHOD 12/11/2024 10:53 AM EDT [facility] Platelet Estimate Platelet smear estimate consistent with automated count LAB HEMATOLOGY METHOD 12/11/2024 10:53 AM EDT [facility] Blood Venous blood specimen / Unknown Venipuncture / Unknown 12/11/2024 8:38 AM EDT 12/11/2024 8:50 AM EDT us Virgen Vargas MD LAB BLOOD ORDERABLES Final Re sult [facility] [address] [place] [address] * (ABNORMAL) Manual Differential (12/11/2024 8:38 AM EDT) Only the most recent of3 resultswithin the time period is included. Blasts % 1 % LAB HEMATOLOGY METHOD 12/11/2024 10:53 AM EDT [facility] Promyelocytes % 0 [...] LAB HEMATOLOGY METHOD 12/11/2024 10:53 AM EDT [facility] Reactive Lymphocytes Absolute 0.02 10*3/uL LAB HEMATOLOGY METHOD 12/11/2024 10:53 AM EDT [facility] Monocytes Absolute 0.01(L) 0.30 - 0.90 10*3/uL LAB HEMATOLOGY METHOD 12/11/2024 10:53 AM EDT [facility] Eosinophils Absolute 0.00 0.00 - 0.50 10*3/uL LAB HEMATOLOGY METHOD 12/11/2024 10:53 AM EDT [facility] Basophils Absolute 0.00 0.00 - 0.10 10*3/uL LAB HEMATOLOGY METHOD 12/11/2024 10:53 AM EDT [facility] Blood Venous blood specimen / Unknown Venipuncture / Unknown 12/11/2024 8:38 AM EDT 12/11/2024 8:50 AM EDT Virgen Vargas MD LAB BLOOD ORDERABLES Final Re sult [facility] [address] [place] [address] * Peripheral blood smear, pathologist interpretation (12/11/2024 8:38 AM EDT) Only the most recent of3 resultswithin the time period is included. Clinical Diagnosis, Peripheral Smear History of acute myeloid leukemia (recent bone marrow dated 12/09/2024 with 14% blasts) LAB HEMATOLOGY METHOD 12/11/2024 4:46 PM EDT [facility] Interpretation , Peripheral Smear Marked leukopenia with neutropenia and 1% circulating blasts. Dysplastic neutrophils (hypogranular) are noted. Moderate anemia and marked thrombocytopen ia. 12/11/2024 4:46 PM EDT [facility] Pathologist Signature, Peripheral Smear 12/11/2024 4:46 PM EDT [facility] Comment:Reviewed by: Omar Peralta MD Blood Venous blood specimen / Unknown Venipuncture / Unknown 12/11/2024 8:38 AM EDT 12/11/2024 8:50 AM EDT Virgen Vargas MD LAB PATHOLOGY ORDERABLES Terri marco Result [facility] [address] [place] [address] * Chromosome Karyotype, Oncology (12/09/2024 10:15 AM EDT) Only the most recent of2 resultswithin the time period is included. Specimen Type Bone Marrow 12/16/2024 5:59 PM EDT [facility] Clinical Indication Acute Myeloid Leukemia 12/16/2024 5:59 PM EDT [facility] Specimen Adequacy Adequate 025 5:59 PM EDT [facility] Chromosome Analysis Result Giemsa-banded metaphase cells from unstimulated bone marrow cultures showed the following chromosome pattern: 43~45,X,-Y,t(4;1 4)(q21;q32),add( 5)(q13),add(16)( q11.2),-17,add(2 0)(q11.2)[cp13]/ 46,XY[7] 12/16/2024 5:59 PM EDT [facility] Interpretation Abnormal male chromosome analysis. [...] were observed on this patient's previous specimen [id number] and indicate persistent disease. Clinical correlation is recommended. Note: Per [employer] (CAP) requirement additional karyotypes were performed and charged due to the presence of clonal abnormalities. # cells counted = 20 # cells analyzed = 20 # cells karyotyped = 3 Band resolution: 400 12/16/2024 5:59 PM EDT [facility] Pathologist Signature Reviewed by: Mesfin Rae 12/16/2024 5:59 PM EDT [facility] Bone Marrow Non-blood Collection / Unknown 12/09/2024 10:15 AM EDT 12/09/2024 12:48 PM EDT us Virgen Vargas MD LAB CYTOGENETICS ORDERABLES F inal Result [facility] [address] [place] [address] * Leukemia/Lymphoma - Immunophenotyping by Flow Cytometry (12/09/2024 10:15 AM EDT) Only the most recent of2 resultswithin the time period is included. Clinical Indication AML 12/10/2024 8:51 AM EDT [facility] Flow Cytometry Interpretation APPROXIMATELY 23% POPULATION OF CD34 POSITIVE MYELOID BLASTS EXPRESSING CD34, CD117, CD13, CD33, HLA-DR, PARTIAL CD7, VARIABLE CD123, PARTIAL CD38, AND MODERATE CD45, SEE COMMENT, BONE MARROW ASPIRATE. 12/10/2024 8:51 AM EDT [facility] Comments Specimen viability is 86.0%. [...] light chains, CD123 12/10/2024 8:51 AM EDT [facility] Disclaimer This test was developed and its performance characteristics determined by the Immuno-Molecular Pathology Laboratory at the [facility]. It has not been cleared [...] on the report. 12/10/2024 8:51 AM EDT [facility] Pathologist Signature Reviewed by: Gerry Jensen MD 12/10/2024 8:51 AM EDT [facility] MRD Indicated Test Not Indicated 8:51 AM EDT [facility] Bone Marrow Specimen from bone marrow obtained by aspiration / Unknown Non-blood Collection / Unknown 12/09/2024 10:15 AM EDT 12/09/2024 11:28 AM EDT Virgen Vargas MD LAB FLOW CYTOMETRY ORDERABLES Final Result [facility] [address] [place] [address] * Bone marrow exam (12/09/2024 10:15 AM EDT) Only the most recent of2 resultswithin the time period is included. Case Report Bone Marrow Case: [id number] Authorizing Provider: iVrgen Vargas MD Collected: 12/09/2024 1015 Ordering Location: [facility] Hematology/BMT and Received: 12/09/2024 1145 Cellular Therapy Program Pathologist: Gerry Jensen MD Specimens: A) - Bone Marrow Aspirate, right B) - Bone Marrow Biopsy, right C) - Peripheral Blood for Bone Marrow 12/19/2024 5:35 PM EDT [facility] Cytogenetics Report, Addendum Chromosome Analysis Result: Giemsa-banded [...] were observed on this patient's previous specimen [id number] and indicate persistent disease. 12/19/2024 5:35 PM EDT [facility] Addendum electronically signed by Gerry Jensen MD on 12/19/2024 at 1735 EDT Final Diagnosis PERIPHERAL BLOOD AND BONE MARROW, RIGHT POSTERIOR ILIAC CREST, (PERIPHERAL SMEAR, ASPIRATE SMEAR, AND CORE BIOPSY): - NORMOCELLULAR BONE MARROW WITH ERYTHROID HYPERPLASIA, VIRTUALLY ABSENT MATURING GRANULOPOIESIS, AND 14% BLASTS, SEE COMMENT. 12/19/2024 5:35 PM EDT [facility] at 1706 EDT Comment While by flow cytometric analysis blasts constitute 23% of cellularity, the majority of bone marrow cellularity consists of erythroid precursors that are removed by flow cytometry. This leads to the discrepancy between the percentage of blasts by flow cytometry and morphologic examination. Nonetheless, the findings are consistent with some residual disease. 12/19/2024 5:35 PM EDT [facility] Clinical Information AML s/p cycle 2 12/19/2024 5:35 PM EDT [facility] CBC and Differential PERIPHERAL BLOOD: [...] Platelets are decreased. 12/19/2024 5:35 PM EDT [facility] Bone Marrow Differential BONE MARROW DIFFERENTIAL: 400 cells Normal Patient Neutrophils 15-50 0 Metamyelocytes 4-19 0 Myelocytes 1-18 1 Promyelocytes 1-8 0 Blasts 0-2 14 Monocytes 0-5 3 Erythroid 16-38 76 Lymphocytes 3-24 1 Eosinophils 0-6 0 Basophils 0-2 0 Plasma cells 0-4 5 Other 12/19/2024 5:35 PM EDT [facility] Aspirate Smear The bone marrow [...] predominantly normal morphology. 12/19/2024 5:35 PM EDT [facility] Core Biopsy The core biopsy is small and shows 5 mm of a normocellular bone marrow with a cellularity of approximately 30% that is predominantly comprised of erythroid precursors. Erythropoiesis is left-shifted, but maturing. Maturing granulopoiesis is virtually absent. Myeloid cells almost entirely consists of immature precursors. Megakaryocytes are decreased and exhibit predominantly normal morphology. 12/19/2024 5:35 PM EDT [facility] Flow Cytometry Interpretation Flow cytometric analysis shows approximately 23% population of CD34 positive myeloid blasts expressing CD34, CD117, CD13, CD33, HLA-DR, partial CD7, variable CD123, partial CD38, and moderate CD45 ([id number]). 12/19/2024 5:35 PM EDT [facility] Gross Description B. RIGHT A single specimen is received in formalin labeled bone marrow biopsy right posterior iliac crest and consists of 1 piece(s) of red/white tissue measuring 0.7 cm in length 0.2 cm in diameter. The specimen is submitted in to Histology for decalcification and routine processing. Cold Time: <1m 12/19/2024 5:35 PM EDT [facility] Note: A resident was involved in the service. I attest I examined the relevant preparations for the specimens and confirmed the diagnosis or interpretation. 12/19/2024 5:35 PM EDT [facility] Bone Marrow Peripheral blood specimen [...] PATHOLOGY ORDERABLES Edit ed Result - Final [facility] [address] [place] [address] * BIOPSY BONE MARROW (12/09/2024 10:00 AM EDT) Narrative Kierra Novak APRN - 12/09/2024 10:00 AM EDT Kierra Novak APRN 12/09/2024 12:08 PM Biopsy bone marrow Date/Time: 12/09/2024 10:00 AM Performed by: Kierra Novak APRN Authorized by: Kierra Novak APRN Consent: Consent obtained: Written Consent given by: Patient Risks, benefits, and alternatives were discussed: yes Risks discussed: Bleeding, infection and pain [facility] protocol: Procedure explained and questions answered to [...] for port placement. New AML, starting chemotherapy. Upper Trimmer: Mckinley Lee MD Secondary Legal Assistant: Dr. David Holt Rad Dose: 6 mGy [...] was placed supine on the fluoro table. Aircraft Riveter ultrasonography revealed the vein to be compressible [...] with no evidence of complication. Device: 6 Occitan port catheter cut to length of 25 cm. COMPARISON: None. FINDINGS: Patent R IJV COMPLICATION: No. Procedure Note Mckinley Lee MD - 12/02/2024 CLINICAL INDICATION: 69M here for port placement. New AML, starting chemotherapy. Upper Trimmer: Mckinley Lee MD Secondary Legal Assistant: Dr. David Holt Rad Dose: 6 mGy [...] patient was placed supine on the fluoro table.Aircraft Riveter ultrasonography revealed the vein to be compressible [...] well with no evidence ofcomplication. Device: 6 Occitan port catheter cut to length of 25 [...] MD on 12/02/2024 7:02 AM Isaura Wynn OIL AND GAS EXPLORATION TECHNICIAN IMG IR PROCEDURES Final Result * (ABNORMAL) WBC Differential (12/01/2024 9:39 AM EDT) [facility] Differential Type Automated LAB HEMATOLOGY METHOD 12/01/2024 11:33 AM EDT [facility] Neutrophils % 9 % LAB HEMATOLOGY METHOD 12/01/2024 11:33 AM EDT [facility] Lymphocytes % 84 % LAB HEMATOLOGY METHOD 12/01/2024 11:33 AM EDT [facility] Monocytes % 6 % LAB HEMATOLOGY METHOD 12/01/2024 11:33 AM EDT [facility] Eosinophils % 1 % LAB HEMATOLOGY METHOD 12/01/2024 11:33 AM EDT [facility] Basophils % 0 % LAB HEMATOLOGY METHOD 12/01/2024 11:33 AM EDT [facility] Immature Granulocytes % 0 % LAB HEMATOLOGY METHOD 12/01/2024 11:33 AM EDT [facility] Immature Granulocytes Absolute 0.00 0.00 - 0.06 10*3/uL LAB HEMATOLOGY METHOD 12/01/2024 11:33 AM EDT [facility] Neutrophils Absolute 0.06(LL) 1.60 - 6.10 10*3/uL LAB HEMATOLOGY METHOD 12/01/2024 11:33 AM EDT [facility] Lymphocytes Absolute 0.59(L) 1.20 - 3.90 10*3/uL LAB HEMATOLOGY METHOD 12/01/2024 11:33 AM EDT [facility] Monocytes Absolute 0.04(L) 0.30 - 0.90 10*3/uL LAB HEMATOLOGY METHOD 12/01/2024 11:33 AM EDT [facility] Basophils Absolute 0.00 0.00 - 0.10 10*3/uL LAB HEMATOLOGY METHOD 12/01/2024 11:33 AM EDT [facility] Eosinophils Absolute 0.01 0.00 - 0.50 10*3/uL LAB HEMATOLOGY METHOD 12/01/2024 11:33 AM EDT [facility] Blood Venous blood specimen / Unknown Venipuncture / Unknown 12/01/2024 9:39 AM EDT 12/01/2024 9:56 AM EDT us Virgen Vargas MD LAB BLOOD ORDERABLES Final Re sult [facility] [address] [place] [address] * (ABNORMAL) CBC (12/01/2024 9:39 AM EDT) WBC Count 0.64(LL) 3.70 - 10.30 10*3/uL LAB HEMATOLOGY METHOD 12/01/2024 4:21 PM EDT [facility] RBC Count 2.29(L) 4.60 - 6.10 10*6/uL LAB HEMATOLOGY METHOD 12/01/2024 4:21 PM EDT [facility] HGB 7.6(L) 13.7 - 17.5 g/dL LAB HEMATOLOGY METHOD 12/01/2024 4:21 PM EDT [facility] HCT 20.9(L) 40.0 - 51.0 % LAB HEMATOLOGY METHOD 12/01/2024 4:21 PM EDT [facility] Platelet Count 14(LL) 155 - 369 10*3/uL LAB HEMATOLOGY METHOD 12/01/2024 4:21 PM EDT [facility] MCV 91 79 - 98 fL LAB HEMATOLOGY METHOD 12/01/2024 4:21 PM EDT [facility] MCH 33.2(H) 26.0 - 32.0 pg LAB HEMATOLOGY METHOD 12/01/2024 4:21 PM EDT [facility] MCHC 36.4(H) 30.7 - 35.5 g/dL LAB HEMATOLOGY METHOD 12/01/2024 4:21 PM EDT [facility] RDW 17.7(H) 11.5 - 14.5 % LAB HEMATOLOGY METHOD 12/01/2024 4:21 PM EDT [facility] MPV LAB HEMATOLOGY METHOD 12/01/2024 4:21 PM EDT [facility] Comment:Not Measured nRBC 0.0 <=0.0 per 100 WBCs LAB HEMATOLOGY METHOD 12/01/2024 4:21 PM EDT [facility] Blood Venous blood specimen / Unknown Venipuncture / Unknown 12/01/2024 9:39 AM EDT 12/01/2024 9:56 AM EDT us Mckinley Lee MD LAB BLOOD ORDERABLES Final R esult [facility] [address] [place] [address] * Protime-INR (11/26/2024 10:51 AM EDT) Prothrombin Time 13.8 12.0 - 14.3 sec LAB COAGULATION METHOD 11/26/2024 11:52 AM EDT [facility] INR 1.1 0.9 - 1.1 LAB COAGULATION METHOD 11/26/2024 11:52 AM EDT [facility] Blood Venous blood specimen / Unknown Venipuncture / Unknown 11/26/2024 10:51 AM EDT 11/26/2024 10:51 AM EDT Narrative [facility] - 11/26/2024 11:52 AM EDT OPTIMAL INR RANGES FOR PATIENT ON ORAL ANTICOAGULANT THERAPY Prevention of venous thromboembolism INR 2.0 to 3.0 In patients with heart disease: Atrial fibrillation INR 2.0 to 3.0 Valvular heart disease INR 2.0 to 3.0 Tissue heart valves INR 2.0 to 3.0 Mechanical prosthetic valves INR 2.5 to 3.5 Prevention of recurrent VA INR 2.5 to 3.5 us Latoya Nunez OIL AND GAS EXPLORATION TECHNICIAN LAB BLOOD ORDERABLES Final R esult [facility] [address] [place] [address] * BIOPSY BONE MARROW (11/10/2024 2:00 PM [...] - 899 pg/mL 11/05/2024 11:49 AM EDT [facility] Blood Venous blood specimen / Unknown Venipuncture / Unknown 11/05/2024 11:01 AM EDT 11/05/2024 11:21 AM EDT Elsa Razo APRN LAB BLOOD ORDERABLES Fin al Result Performing Organization Address City/[facility]/ZIP Co de Phone Number [facility] [address] [place] [address] * ECG Adult (Now - Performed in your clinic) (11/05/2024 10:10 AM EDT) Only the most recent of2 resultswithin the time period is included. EKG DIAGNOSIS CLASS Normal MUSE ECG Ventricular Rate 71 BPM MUSE ECG Atrial Rate 71 BPM MUSE ECG MT Interval 154 ms MUSE ECG QRSD Interval 80 ms MUSE ECG QT Interval 404 ms MUSE ECG QTC Interval 439 ms MUSE ECG P [place] 45 degrees MUSE ECG R [place] 15 degrees MUSE ECG T Wave [place] 42 degrees MUSE ECG Diagnosis Normal sinus rhythm MUSE ECG Diagnosis Normal ECG MUSE ECG Diagnosis MUSE ECG Diagnosis Confirmed by Orestes Stone ([id number]) on 11/05/2024 10:19:58 AM MUSE ECG 11/05/2024 10:1 0 AM EDT 11/05/2024 10:19 AM EDT Elsa Razo APRN ECG ORDERABLES Final Re sult Performing Organization Address [facility] Co de Phone Number MUSE ECG * Urine Cross Panel (11/03/2024 4:05 PM EDT) Extra Reflex urine culture not indicated 11/04/2024 2:02 AM EDT [facility] Comment: Previously prelim verified as [...] MD LAB URINE ORDERABLES Final R esult [facility] [address] [place] [address] * (ABNORMAL) Urinalysis with reflex microscopic (Culture NOT Included) (11/03/2024 4:05 PM EDT) Color, Urine Yellow LAB URINALYSIS - AUTOMATED METHOD 11/03/2024 4:23 PM EDT [facility] Clarity, Urine Clear LAB URINALYSIS - AUTOMATED METHOD 11/03/2024 4:23 PM EDT [facility] Spec [place], Urine 1.018 1.005 - 1.030 LAB URINALYSIS - AUTOMATED METHOD 11/03/2024 4:23 PM EDT [facility] pH, Urine 6.5 5.0 - 8.0 LAB URINALYSIS - AUTOMATED METHOD 11/03/2024 4:23 PM EDT [facility] Protein, Urine 30(A) Negative mg/dL LAB URINALYSIS - AUTOMATED METHOD 11/03/2024 4:23 PM EDT [facility] Glucose, Urine Negative Negative mg/dL LAB URINALYSIS - AUTOMATED METHOD 11/03/2024 4:23 PM EDT [facility] Ketones, Urine Negative Negative mg/dL LAB URINALYSIS - AUTOMATED METHOD 11/03/2024 4:23 PM EDT [facility] Blood, Urine Negative Negative LAB URINALYSIS - AUTOMATED METHOD 11/03/2024 4:23 PM EDT [facility] Bilirubin, Urine Negative Negative LAB URINALYSIS - AUTOMATED METHOD 11/03/2024 4:23 PM EDT [facility] Urobilinogen, Urine 2.0(A) 0.2 to 1.0 mg/dL LAB URINALYSIS - AUTOMATED METHOD 11/03/2024 4:23 PM EDT [facility] Leukocytes, Urine Negative Negative LAB URINALYSIS - AUTOMATED METHOD 11/03/2024 4:23 PM EDT [facility] Nitrite, Urine Negative Negative LAB URINALYSIS - AUTOMATED METHOD 11/03/2024 4:23 PM EDT [facility] Urine Urine specimen obtained by clean catch procedure / Unknown Non-blood Collection / Unknown 11/03/2024 4:05 PM EDT 11/03/2024 4:17 PM EDT us Tati Fam MD LAB URINE ORDERABLES Final R esult [facility] [address] [place] [address] * CT Head wo IV Contrast (11/03/2024 [...] at day 5 11/08/2024 4:01 PM EDT [facility] Blood Structure of antecubital vein / Unknown Venipuncture / Unknown 11/03/2024 3:24 PM EDT 11/03/2024 3:47 PM EDT Narrative [facility] - 11/08/2024 4:01 PM EDT Low blood volume submitted, results may be compromised us Tati Fam MD LAB MICROBIOLOGY - GENERAL O RDERABLES Final Result [facility] [address] [place] [address] * XR Chest 1 View (11/03/2024 3:00 [...] for all analytes 11/03/2024 5:17 PM EDT [facility] Swab Nasopharyngeal structure / Unknown Non-blood Collection / Unknown 11/03/2024 2:59 PM EDT 11/03/2024 3:17 PM EDT Narrative [facility] - 11/03/2024 5:17 PM EDT [...] Respiratory PCR Panel is performed using the Amazing [employer] Letters[employer] instrument. This test is FDA approved for use with Nasopharyngeal swabs only. This test is used for clinical purposes. It should not be regarded as investigational or for research. The [facility] Clinical Microbiology Laboratory is certified under the Clinical Laboratory Improvement Amendments of 1988 (CLIA-88) as qualified to perform high complexity clinical laboratory testing. Tati Fam MD LAB MICROBIOLOGY - GENERAL O RDERABLES Final Result Performing Organization Address City/[facility]/ZIP Co de Phone Number [facility] [address] [place] [address] * Lactic acid, venous (11/03/2024 2:25 PM EDT) [facility] Lactate, Venous, Whole Blood 0.9 0.5 - 2.2 mmol/L LAB HEMATOLOGY METHOD 11/03/2024 2:38 PM EDT [facility] Blood Venous blood specimen / Unknown Venipuncture / Unknown 11/03/2024 2:25 PM EDT 11/03/2024 2:36 PM EDT Tati Fam MD LAB BLOOD ORDERABLES Final R esult Performing Organization Address City/[facility]/ZIP Co de Phone Number [facility] [address] [place] [address] * (ABNORMAL) BASIC METABOLIC PANEL (10/22/2024 3:50 PM EDT) Only the most recent of2 resultswithin the time period is included. [facility] Glucose, Plasma 95 74 - 99 mg/dL 10/22/2024 4:38 PM EDT [facility] BUN, Plasma 13 8 - 23 mg/dL 10/22/2024 4:38 PM EDT [facility] Creatinine, Plasma 1.10 0.70 - 1.20 mg/dL 10/22/2024 4:38 PM EDT [facility] BUN/Creatinine Ratio 12 10/22/2024 4:38 PM EDT [facility] Sodium, Plasma 138 136 - 145 mmol/L 10/22/2024 4:38 PM EDT [facility] Potassium, Plasma 4.4 3.6 - 4.9 mmol/L 10/22/2024 4:38 PM EDT [facility] Chloride, Plasma 106 97 - 107 mmol/L 10/22/2024 4:38 PM EDT [facility] CO2, Plasma 21(L) 22 - 29 mmol/L 10/22/2024 4:38 PM EDT [facility] Anion Gap 11 6 - 16 mmol/L 10/22/2024 4:38 PM EDT [facility] Total Calcium, Plasma 9.6 8.9 - 10.2 mg/dL 10/22/2024 4:38 PM EDT [facility] eGFRcr 72.7 mL/min/1.7 3m*2 10/22/2024 4:38 PM EDT [facility] Comment:Reported eGFRcr in m L/min/1.73m2 is based the CKD-EPI 2020 equation that does not use a race coefficient. Blood Venous blood specimen / Unknown Venipuncture / Unknown 10/22/2024 3:50 PM EDT 10/22/2024 4:04 PM EDT us Virgen Vargas MD LAB BLOOD ORDERABLES Final Re sult [facility] [address] [place] [address] * Thyroid Stimulating Hormone, Plasma (10/20/2024 2:48 PM EDT) Thyroid Stimulating Hormone, Plasma 1.02 0.40 - 4.20 uIU/mL 10/20/2024 10:39 PM EDT [facility] Blood Venous blood specimen / Unknown Venipuncture / Unknown 10/20/2024 2:48 PM EDT 10/20/2024 3:05 PM EDT us Kayli CHIU LAB BLOOD ORDERABLES Fin al Result [facility] [address] [place] [address] * Bone marrow exam consult (10/15/2024 1:27 PM EDT) Case Report Bone Marrow Case: [id number] Authorizing Provider: Virgen Vargas MD Collected: 10/15/2024 1327 Ordering Location: [facility] Received: 10/15/2024 1327 Pathologist: Martha Lopez MD Specimen: Bone Marrow Aspirate, [id number] 10/16/2024 2:02 PM EDT [facility] Final Diagnosis A. 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 10/16/2024 2:02 PM EDT [facility] Clinical Information R79.9 - Abnormal finding of blood chemistry, unspecified [ICD-10-CM] 10/16/2024 2:02 PM EDT [facility] CBC and Differential PERIPHERAL BLOOD: [...] Granulocytes % 0 10/16/2024 2:02 PM EDT [facility] Bone Marrow Differential BONE MARROW DIFFERENTIAL: 200 cells Normal Patient Neutrophils 15-50 22 Metamyelocytes 4-19 3 Myelocytes 1-18 11 Promyelocytes 1-8 1 Blasts 0-2 13 Monocytes 0-5 4 Erythroid 16-38 41 Lymphocytes 3-24 4 Eosinophils 0-6 1 Basophils 0-2 0 Plasma cells 0-4 0 Other 10/16/2024 2:02 PM EDT [facility] Bone Marrow Aspirate and Biopsy [...] trabeculae are unremarkable. 10/16/2024 2:02 PM EDT [facility] Flow Cytometry Interpretation Outside flow cytometry showed 17% myeloblasts expressing CD34, CD117, partial CD 38, partial CD7, HLA-DR, CD13 and variable CD33. 10/16/2024 2:02 PM T [facility] CYTOGENETICS/MOL ECULAR INTERPRETATION Cytogenetic analysis showed normal male karyotype. No FLT3 duplication or mutation was identified, and no NPM1 mutation was identified. 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 10/16/2024 2:02 PM EDT [facility] Gross Description A. [id number] Received along with a corresponding pathology report from [facility]ology [facility] Cytology Laboratory are 12 slides labeled outside case: [id number] collected on 09/19/2024. 10/16/2024 2:02 PM EDT [facility] Bone Marrow Specimen from bone marrow obtained by aspiration / Unknown 10/15/2024 1:27 PM EDT 10/15/2024 1:27 PM EDT Virgen Vargas MD LAB PATHOLOGY ORDERABLES Terri l Result [facility] [address] [place] [address] * Hepatitis C Antibody w/Reflex to HCV Quant PCR (09/29/2024 12:51 PM EDT) Hepatitis C Antibody Negative Negative 09/29/2024 2:06 PM EDT [facility] Blood Venous blood specimen / Unknown Venipuncture / Unknown 09/29/2024 12:51 PM EDT 09/29/2024 1:22 PM EDT Virgen Vargas MD LAB BLOOD ORDERABLES Final Re sult [facility] [address] [place] [address] from Last 3 Months or Most Recently Relevant to Health Maintenance Insurance [facility] MEDIC[facility] Care Teams Community Outreach Manager Relationship Specialty Start Date End Date Zhao Harris MD [address] [facility] [address] [place] [address] [facility] - General 12/03/20
--- OUTSIDE RECORDS SUMMARY | 2025-01-05 08:24 | XMS_ITS | Encounter Summary ---
Author Organization [facility] [facility] Address [address] [place] [address] Care Team Providers Care Crewman Main Battle Tank Name Role Phone Unavailable Primary Care Provider Unavailabl e Encounter Details Date Type Department Care Team (Late st Contact Info) Description 07/10/2019 Transcribed Document [facility] [place] [facility] [place] [address] ProviderBrigida MD [address] [place] [address] Social History Tobacco Use Types Packs/Day [...] - Brigida ProviderMD - 07/10/2019 7:04 AM EPIC PRELUDE ANALYST Patient: HUGO AGUILAR JR Age: 63 years Sex: Male : 1955 Associated Diagnoses: None Author: DWAYNE SHARMA MD-ORT HISTORY AND PHYSICAL DATE: Patient: Hugo Aguilar Date of : 1955 Patient Number: [id number] History of Present Illness Hugo is here [...]
--- OUTSIDE RECORDS SUMMARY | 2025-01-05 08:24 | XMS_ITS | Referral Summary ---
Author Organization [employer] Address [address] [place] [address] Care Team Providers Care Hospital Chaplain Name Role Phone Unavailable Primary Care Provider [...]
--- OUTSIDE RECORDS SUMMARY | 2025-01-05 08:24 | XMS_ITS | Encounter Summary ---
Author Organization [facility] Address [address] [place] [address] Care Team Providers Care Retreader Name Role Phone Zhao Harris MD Primary Care Provider [phone] Encounter Details Date Type Department Care Team ([facility] st Contact Info) Description 11/18/2024 Telephone [facility] Hematology/BMT and Cellular Therapy Program [address] [place] [address] [place] [address] Brittny Mahoney, RN [id number] Social History Tobacco Use [...] drink first t manav in the morning (EYE-[employer]ARBOR POLICE LIEUTENANT) to steady your nerves or to get [...] [facility] Hematology/BMT and Cellular Therapy Program [address] [place] [phone] 01/06/2025 9:00 AM EDT Procedure Visit [facility] Hematology/BMT and Cellular Therapy Program [address] [place] [phone] Kierra Novak, SQUIRREL MAN 800 [facility] [address] [place] [phone] 01/13/2025 9:30 AM EDT Clinical Support [facility] Hematology/BMT and Cellular Therapy Program [address] [place] [phone] 01/13/2025 10:00 AM EDT Office Visit [facility] Hematology/BMT and Cellular Therapy Program [address] [place] [phone] Isaura Wynn, SQUIRREL MAN 800 [facility] [address] [phone] 01/13/2025 11:30 AM EDT Appointment [facility] Infusion [address] [place] [address] 01/14/2025 2:00 PM EDT Appointment [facility] [address] [place] [address] 01/15/2025 2:00 PM EDT Appointment [facility] [address] [place] [address] 01/16/2025 2:00 PM EDT Appointment [facility] [address] [place] [address] 01/17/2025 2:00 PM EDT Appointment [facility] [address] [place] [address] 01/18/2025 2:00 PM EDT Appointment [facility] [address] [place] [address] 01/19/2025 2:00 PM EDT Appointment [facility] [address] [place] [address] 03/10/2025 11:20 AM EDT Office Visit Pav CC Head, Neck & Respiratory 800 [facility], 2nd [place] [address] Elsa Razo, SQUIRREL MAN [address] [place] [address] documented as of this encounter Visit Diagnoses [...] documented as of this encounter Care Teams Retreader Relationship Specialty Start Date End Date Zhao Harris MD [address] [facility] [address], [place] [phone] PCP - General 12/03/20 documented as of this encounter
--- OUTSIDE RECORDS SUMMARY | 2025-01-05 08:24 | XMS_ITS | Encounter Summary ---
Author Organization [employer] Address [address] [place] [address] Care Team Providers Care Wool Puller Name Role Phone Unavailable Primary Care Provider Unavailabl e Encounter Details Date Type Department Care Team (Late st Contact Info) Description 07/10/2019 Transcribed Document [facility] Family Medicine [facility] [place] [address] ProviderBrigida MD [address] [place] [address] Social History Tobacco Use Types Packs/Day [...] - Historical ProviderMD - 07/10/2019 7:57 AM CAN TOP SETTER Diane Main OR PreOp Summary Primary Physician: SURY SHARMA MD-ORGenia Finalized Date/Time: 07/21/19 08:13:07 Pt. Name: HUGO AGUILAR JR, D.O.B./Sex: 1955 Male Med Rec #: [id number] Physician: SURY SHARMA MD-ORT Financial #: [id number] Pt. Type: O Room/Bed: Admit/Disch: 07/10/19 05:55:00 - 07/10/19 10:00:00 [place] [facility] Times Entry 1 In Preop 07/10/19 06:10:00 Ready for Holding n/a Room Patient Ready for 07/10/19 07:19:00 Surgery Patient Out of Preop 07/10/19 07:35:00 Patient Out of n/a Holding Room Last Modified By: REAL SEVILLA 07/21/19 08:13:06 SJE PreOp Case Times Audit 07/21/19 08:13:06 Citizen Participation Specialist: FAY Modifier: [email or web address] <+> 1 Patient Out of Preop Finalized By: REAL SEVILLA Document Signatures Signed By: REAL SEVILLA 07/21/19 08:13 documented in this encounter Plan of Treatment Not on file documented as of this encounter Visit Diagnoses Not on filedocumented in this encounter
--- OUTSIDE RECORDS SUMMARY | 2025-01-05 08:24 | XMS_ITS | Encounter Summary ---
Author Organization [facility] Address [address] [place] [address] Care Team Providers Care Partridge Farmer Name Role Phone Zhao Harris MD Primary Care Provider [phone] Encounter Details Date Type Department Care Team [...] first t manav in the morning (EYE-PRODUCTION OFFICER) to steady your nerves or to [...] Upcoming Encounters Date Type Department Care Team ([facility] st Contact Info) Description 01/06/2025 8:30 AM EDT Clinical Support [facility] Hematology/BMT and Cellular Therapy Program [address] [phone] 01/06/2025 9:00 AM EDT Procedure Visit [facility] Hematology/BMT and Cellular Therapy Program [address] [phone] Kierra Novak, LAUNDRY SUPERINTENDENT 800 [facility] [address] [place] [phone] 01/13/2025 9:30 AM EDT Clinical Support [facility] Hematology/BMT and Cellular Therapy Program [address] [phone] 01/13/2025 10:00 AM EDT Office Visit [facility] Hematology/BMT and Cellular Therapy Program [address] [phone] Isaura Wynn, LAUNDRY SUPERINTENDENT 800 [facility] [address] [place] [phone] 01/13/2025 11:30 AM EDT Appointment [facility] [address] [place] [phone] 01/14/2025 2:00 PM EDT Appointment [facility] [address] [place] [phone] 01/15/2025 2:00 PM EDT Appointment [facility] [address] [place] [phone] 01/16/2025 2:00 PM EDT Appointment [facility] [address] [place] [phone] 01/17/2025 2:00 PM EDT Appointment [facility] [address] [place] [address] 01/18/2025 2:00 PM EDT Appointment [facility] [address] [place] [address] 01/19/2025 2:00 PM EDT Appointment [facility] [address] [place] [address] 03/10/2025 11:20 AM EDT Office Visit Pav CC Head, Neck & Respiratory 800 [facility] [address]nd [place] [address] Elsa Razo, LAUNDRY SUPERINTENDENT [address] [place] [address] documented as of this encounter Visit Diagnoses [...] documented as of this encounter Care Teams Partridge Farmer Relationship Specialty Start Date End Date Zhao Harris MD [address] [place] [phone] PCP - General 12/03/20 documented as of this encounter
--- OUTSIDE RECORDS SUMMARY | 2025-01-05 08:24 | XMS_ITS | Clinical Summary ---
Author Organization [employer] Address [address] [place] [address] Care Team Providers Care In Processing Instructor Name Role Phone Unavailable Primary Care Provider [...]
--- OUTSIDE RECORDS SUMMARY | 2025-01-05 08:24 | XMS_ITS | Encounter Summary ---
Author Organization [facility] Address [address] [place] [address] Care Team Providers Care Hearing Aid Repairer Name Role Phone Zhao Harris MD Primary Care Provider [phone] Encounter Details Date Type Department Care Team [...] drink first t manav in the morning (EYE-BOOM MAN) to steady your nerves or to get [...] & [facility] Center st Contact Info) Description 01/06/2025 8:30 AM EDT Clinical Support [facility] Hematology/BMT and Cellular Therapy Program [address] [place] [phone] 01/06/2025 9:00 AM EDT Procedure Visit [facility] Hematology/BMT and Cellular Therapy Program [address] [phone] Kierra Novak, AUTOMATIC OVEN OPERATOR 800 [facility] [address] [place] [phone] 01/13/2025 9:30 AM EDT Clinical Support [facility] Hematology/BMT and Cellular Therapy Program [address] [phone] 01/13/2025 10:00 AM EDT Office Visit [facility] Hematology/BMT and Cellular Therapy Program [address] [phone] Isaura Wynn, AUTOMATIC OVEN OPERATOR 800 [facility] [address] [place] [phone] 01/13/2025 11:30 AM EDT Appointment [facility] [address] [place] [phone] 01/14/2025 2:00 PM EDT Appointment [facility] [address] [place] [phone] 01/15/2025 2:00 PM EDT Appointment [facility] [address] [place] [phone] 01/16/2025 2:00 PM EDT Appointment [facility] [address] [place] [phone] 01/17/2025 2:00 PM EDT Appointment [facility] [address] [place] [address] 01/18/2025 2:00 PM EDT Appointment [facility] [address] [place] [address] 01/19/2025 2:00 PM EDT Appointment [facility] [address] [place] [address] 03/10/2025 11:20 AM EDT Office Visit Pav CC Head, Neck & Respiratory 800 [facility], [address]nd [place] [address] Elsa Razo, AUTOMATIC OVEN OPERATOR [address] [place] [address] documented as of this encounter Visit Diagnoses [...] documented as of this encounter Care Teams Hearing Aid Repairer Relationship Specialty Start Date End Date Zhao Harris MD [address] [place] [address] PCP - General 12/03/20 documented as of this encounter
--- OUTSIDE RECORDS SUMMARY | 2025-01-05 08:24 | XMS_ITS | Encounter Summary ---
Author Organization [facility] Address [address] [place] [address] Care Team Providers Care Deckhand Crab Boat Name Role Phone Zhao Harris MD Primary Care Provider [phone] Encounter Details Date Type Department Care Team [...] drink first t manav in the morning (EYE-INSTANTIZER OPERATOR) to steady your nerves or to [...] Hematology/BMT and Cellular Therapy Program [address] [place] [phone] 01/06/2025 9:00 AM EDT Procedure Visit [facility] Hematology/BMT and Cellular Therapy Program [address] [phone] Kierra Novak, POLYGRAPH OPERATOR [address] [facility] [address] [place] [phone] 01/13/2025 9:30 AM EDT Clinical Support [facility] Hematology/BMT and Cellular Therapy Program [address] [phone] 01/13/2025 10:00 AM EDT Office Visit [facility] Hematology/BMT and Cellular Therapy Program [address] [phone] Isaura Wynn, POLYGRAPH OPERATOR [address] [facility] [address] [place] [phone] 01/13/2025 11:30 AM EDT Appointment [facility] [address] [place] [phone] 01/14/2025 2:00 PM EDT Appointment [facility] [address] [place] [phone] 01/15/2025 2:00 PM EDT Appointment [facility] [address] [place] [phone] 01/16/2025 2:00 PM EDT Appointment [facility] [address] [place] [phone] 01/17/2025 2:00 PM EDT Appointment [facility] [address] [place] [address] 01/18/2025 2:00 PM EDT Appointment [facility] [address] [place] [address] 01/19/2025 2:00 PM EDT Appointment [facility] [address] [place] [address] 03/10/2025 11:20 AM EDT Office Visit Pav CC Head, Neck & Respiratory [address] [facility], [address]nd [place] [address] Elsa Razo, POLYGRAPH OPERATOR [address] [place] [address] documented as of this encounter Visit Diagnoses [...] documented as of this encounter Care Teams Deckhand Crab Boat Relationship Specialty Start Date End Date Zhao Harris MD [address] [place] [phone] PCP - General 12/03/20 documented as of this encounter
--- OUTSIDE RECORDS SUMMARY | 2025-01-05 08:24 | XMS_ITS | Encounter Summary ---
Author Organization [facility] Address [address] [place] [address] Care Team Providers Care Substitute Nurse Name Role Phone Zhao Harris MD Primary Care Provider [phone] Encounter Details Date Type Department Care Team ([facility] st Contact Info) Description 11/05/2024 Results Follow-Up Pav CC Head, Neck & Respiratory 800 [facility], 2nd [place] [address] Elsa Razo, AFTER SCHOOL PROGRAM COORDINATOR [address] [place] [address] Social History Tobacco Use Types Packs/Day Years [...] drink first t manav in the morning (EYE-HISTOLOGY TECHNOLOGIST) to steady your nerves or to [...] Support PAV Hematology/BMT and Cellular Therapy Program [address] [place] [address] [phone] 01/06/2025 9:00 AM EDT Procedure Visit PAV Hematology/BMT and Cellular Therapy Program [address] [place] [address] [phone] Kierra Novak, AFTER SCHOOL PROGRAM COORDINATOR 800 [facility] [address] [place] [address] [phone] 01/13/2025 9:30 AM EDT Clinical Support PAV CC Hematology/BMT and Cellular Therapy Program [address] [place] [address] [phone] 01/13/2025 10:00 AM EDT Office Visit PAV Hematology/BMT and Cellular Therapy Program [address] [place] [address] [phone] Isaura Wynn, ESTRELLA 800 [facility] [address] [place] [address] [phone] 01/13/2025 11:30 AM EDT Appointment PAV H Infusion [address] [place] [phone] 01/14/2025 2:00 PM EDT Appointment P[facility] H Infusion [address] [place] [phone] 01/15/2025 2:00 PM EDT Appointment P[facility] H Infusion [address] [place] [address] 01/16/2025 2:00 PM EDT Appointment P[facility] H Infusion [address] [place] [address] 01/17/2025 2:00 PM EDT Appointment PAV H Infusion [address] [place] [address] 01/18/2025 2:00 PM EDT Appointment P[facility] H Infusion [address] [place] [address] 01/19/2025 2:00 PM EDT Appointment PAV H Infusion [address] [place] [address] 03/10/2025 11:20 AM EDT Office Visit Pav CC Head, Neck & Respiratory 800 [facility], 2nd [place] [address] Elsa Razo, AFTER SCHOOL PROGRAM COORDINATOR [address] [place] [address] documented as of this encounter Visit Diagnoses [...] documented as of this encounter Care Teams Substitute Nurse Relationship Specialty Start Date End Date Zhao Harris MD [address] [facility] [address] [place] [address] PCP - General 12/03/20 documented as of this encounter
--- OUTSIDE RECORDS SUMMARY | 2025-01-05 08:24 | XMS_ITS | Encounter Summary ---
Author Organization [facility] Address [address] [place] [address] Care Team Providers Care Nuclear Radiologist Name Role Phone Unavailable Primary Care Provider Unavailabl e Encounter Details Date Type Department Care Team (Late st Contact Info) Description 07/10/2019 Transcribed Document [facility] Family Medicine [address] [place] [address] ProviderBrigida MD [facility] [place], [place] [address] Social History Tobacco Use Types Packs/Day Years [...] - Historical ProviderMD - 07/10/2019 9:45 AM RACING MANAGER Event Note Entered On: 07/10/2019 11:04 EST Performed On: 07/10/2019 9:45 EST by Laquita Romero RN Event Note Event Date/Time : 07/10/2019 9:45 EST Event Location : Other: post-op Description of Event : Pt informed that next dose of [place] pain medication due @ 3:45pm today instead of 3:30pm. Laquita Romero RN - 07/10/2019 11:02 EST documented in this encounter Plan of Treatment Not on file documented as of this encounter Visit Diagnoses Not on filedocumented in this encounter
--- OUTSIDE RECORDS SUMMARY | 2025-01-05 08:25 | XMS_ITS | Encounter Summary ---
Author Organization [facility] Address [address] [place] [address] Care Team Providers Care Sports Nutritionist Name Role Phone Zhao Harris MD Primary Care Provider [phone] Encounter Details Date Type Department Care Team ([facility] st Contact Info) Description 11/18/2024 Telephone PAV CC Hematology/BMT and Cellular Therapy Program [address] [place] [address] [place] [address] [facility] Social History Tobacco Use [...] drink first t manav in the morning (EYE-IRON CASTER) to steady your nerves or to get [...] Upcoming Encounters Date Type Department Care Team ([facility] Contact Info) Description 01/06/2025 8:30 AM EDT Clinical Support PAV Hematology/BMT and Cellular Therapy Program [address] [place] [phone] 01/06/2025 9:00 AM EDT Procedure Visit PAV Hematology/BMT and Cellular Therapy Program [address] [place] [phone] Kierra Novak, CHEF FRENCH 800 [facility] [address] [place] [phone] 01/13/2025 9:30 AM EDT Clinical Support PAV Hematology/BMT and Cellular Therapy Program [address] [place] [phone] 01/13/2025 10:00 AM EDT Office Visit PAV Hematology/BMT and Cellular Therapy Program [address] [place] [phone] Isaura Wynn, CHEF FRENCH 800 [facility] [address] [place] [phone] 01/13/2025 11:30 AM EDT Appointment PAV H Infusion 800 [place] [address] 01/14/2025 2:00 PM EDT Appointment P[facility] H Infusion [address] [place] [address] 01/15/2025 2:00 PM EDT Appointment PAV H Infusion 800 [place] [address] 01/16/2025 2:00 PM EDT Appointment PAV H Infusion [address] [place] [address] 01/17/2025 2:00 PM EDT Appointment PAV H Infusion [address] [place] [address] 01/18/2025 2:00 PM EDT Appointment P[facility] H Infusion [address] [place] [address] 01/19/2025 2:00 PM EDT Appointment PAV H Infusion 800 [place] [address] 03/10/2025 11:20 AM EDT Office Visit Pav CC Head, Neck & Respiratory 800 [facility], 2nd [place] [address] Elsa Razo, CHEF FRENCH 800 [place] [address] documented as of this encounter Visit Diagnoses [...] as of this encounter Care Teams Sports Nutritionist Relationship Specialty Start Date End Date Zhao Harris MD 1210 [facility] [address], [place] [phone] PCP - General 12/03/20 documented as of this encounter
--- OUTSIDE RECORDS SUMMARY | 2025-01-05 08:25 | XMS_ITS | Encounter Summary ---
Author Organization [facility] Address [address] [place] [address] Care Team Providers Care Jig Boring Machine Set Up Operator Name Role Phone Zhao Harris MD Primary Care Provider [phone] Encounter Details Date Type Department Care Team ([facility] st Contact Info) Description 11/19/2024 Orders Only PAV CC Hematology/BMT and Cellular Therapy Program [address] [place] [address] [place] [address] Adam Conway RN [facility] Myelodysplasia (myelodysplastic syndrome) (CMS/HCC) [...] drink first t manav in the morning (EYE-SCHOOL AGE LEAD TEACHER) to steady your nerves or to [...] PAV CC Hematology/BMT and Cellular Therapy Program [address] [place] [phone] 01/06/2025 9:00 AM EDT Procedure Visit PAV CC Hematology/BMT and Cellular Therapy Program [address] [place] [phone] Kierra Novak, MEMS ENGINEER 800 [facility] [address] [place] [phone] 01/13/2025 9:30 AM EDT Clinical Support PAV CC Hematology/BMT and Cellular Therapy Program [address] [place] [address] [phone] 01/13/2025 10:00 AM EDT Office Visit PAV CC Hematology/BMT and Cellular Therapy Program [address] [phone] Isaura Wynn, MEMS ENGINEER 800 [facility] [address] [place] [address] [phone] 01/13/2025 11:30 AM EDT Appointment PAV H Infusion [address] [place] [phone] 01/14/2025 2:00 PM EDT Appointment P[facility] H Infusion [address] [place] [phone] 01/15/2025 2:00 PM EDT Appointment PAV H Infusion [address] [place] [address] 01/16/2025 2:00 PM EDT Appointment PAV H Infusion [address] [place] [address] 01/17/2025 2:00 PM EDT Appointment PAV H Infusion [address] [place] [address] 01/18/2025 2:00 PM EDT Appointment P[facility] H Infusion [address] [place] [address] 01/19/2025 2:00 PM EDT Appointment PAV H Infusion [address] [place] [address] 03/10/2025 11:20 AM EDT Office Visit Pav CC Head, Neck & Respiratory 800 [facility], 2nd [place] [address] Elsa Razo, MEMS ENGINEER [address] [place] [address] Scheduled Orders Name Type Priority Associated Diagnoses [...] Panel, Plasma (12/18/2024 9:14 AM EDT) Pathologist [facility] Glucose, Plasma 108(H) 74 - 99 mg/dL 12/18/2024 9:51 AM EDT [facility] BUN, Plasma 10 8 - 23 mg/dL 12/18/2024 9:51 AM EDT [facility] Creatinine, Plasma 0.80 0.70 - 1.20 mg/dL 12/18/2024 9:51 AM EDT [facility] BUN/Creatinine Ratio 13 12/18/2024 9:51 AM EDT [facility] Sodium, Plasma 139 136 - 145 mmol/L 12/18/2024 9:51 AM EDT [facility] Potassium, Plasma 4.4 3.6 - 4.9 mmol/L 12/18/2024 9:51 AM EDT [facility] Chloride, Plasma 108(H) 97 - 107 mmol/L 12/18/2024 9:51 AM EDT [facility] CO2, Plasma 22 22 - 29 mmol/L 12/18/2024 9:51 AM EDT [facility] Anion Gap 9 6 - 16 mmol/L 12/18/2024 9:51 AM EDT [facility] Total Calcium, Plasma 8.8(L) 8.9 - 10.2 mg/dL 12/18/2024 9:51 AM EDT [facility] Total Protein 6.8 6.3 - 7.9 g/dL 12/18/2024 9:51 AM EDT [facility] Albumin, Plasma 3.9 3.5 - 5.2 g/dL 12/18/2024 9:51 AM EDT [facility] AST, Plasma 16 10 - 50 U/L 12/18/2024 9:51 AM EDT [facility] ALT, Plasma 16 10 - 50 U/L 12/18/2024 9:51 AM EDT [facility] Alkaline Phosphatase, Plasma 83 40 - 115 U/L 12/18/2024 9:51 AM EDT [facility] Total Bilirubin, Plasma 0.6 0.2 - 1.1 mg/dL 12/18/2024 9:51 AM EDT [facility] eGFRcr 95.8 mL/min/1.7 3m*2 12/18/2024 9:51 AM EDT [facility] Comment:Reported eGFRcr in m L/min/1.73m2 is based the CKD-EPI 2020 equation that does not use a race coefficient. Blood Blood sample taken from central line / Unknown Venipuncture / Unknown 12/18/2024 9:14 AM EDT 12/18/2024 9:20 AM EDT Virgen Vargas MD LAB BLOOD ORDERABLES Final Re sult [facility] [address] [place] [address] * (ABNORMAL) CBC and Differential (11/24/2024 2:07 PM EDT) WBC Count 0.76(LL) 3.70 - 10.30 10*3/uL LAB HEMATOLOGY METHOD 11/24/2024 2:44 PM EDT [facility] RBC Count 2.37(L) 4.60 - 6.10 10*6/uL LAB HEMATOLOGY METHOD 11/24/2024 2:44 PM EDT [facility] HGB 8.0(L) 13.7 - 17.5 g/dL LAB HEMATOLOGY METHOD 11/24/2024 2:44 PM EDT [facility] HCT 22.3(L) 40.0 - 51.0 % LAB HEMATOLOGY METHOD 11/24/2024 2:44 PM EDT [facility] Platelet Count 12(LL) 155 - 369 10*3/uL LAB HEMATOLOGY METHOD 11/24/2024 2:44 PM EDT [facility] MCV 94 79 - 98 fL LAB HEMATOLOGY METHOD 11/24/2024 2:44 PM EDT [facility] MCH 33.8(H) 26.0 - 32.0 pg LAB HEMATOLOGY METHOD 11/24/2024 2:44 PM EDT [facility] MCHC 35.9(H) 30.7 - 35.5 g/dL LAB HEMATOLOGY METHOD 11/24/2024 2:44 PM EDT [facility] RDW 18.8(H) 11.5 - 14.5 % LAB HEMATOLOGY METHOD 11/24/2024 2:44 PM EDT [facility] MPV LAB HEMATOLOGY METHOD 11/24/2024 2:44 PM EDT [facility] Comment:Not Measured nRBC 0.0 <=0.0 per 100 WBCs LAB HEMATOLOGY METHOD 11/24/2024 2:44 PM EDT [facility] Differential Type Automated LAB HEMATOLOGY METHOD 11/24/2024 2:44 PM EDT [facility] Neutrophils % 16 % LAB HEMATOLOGY METHOD 11/24/2024 2:44 PM EDT [facility] Lymphocytes % 79 % LAB HEMATOLOGY METHOD 11/24/2024 2:44 PM EDT [facility] Monocytes % 4 % LAB HEMATOLOGY METHOD 11/24/2024 2:44 PM EDT [facility] Eosinophils % 1 % LAB HEMATOLOGY METHOD 11/24/2024 2:44 PM EDT [facility] Basophils % 0 % LAB HEMATOLOGY METHOD 11/24/2024 2:44 PM EDT [facility] Immature Granulocytes % 0 % LAB HEMATOLOGY METHOD 11/24/2024 2:44 PM EDT [facility] Neutrophils Absolute 0.12(LL) 1.60 - 6.10 10*3/uL LAB HEMATOLOGY METHOD 11/24/2024 2:44 PM EDT [facility] Lymphocytes Absolute 0.60(L) 1.20 - 3.90 10*3/uL LAB HEMATOLOGY METHOD 11/24/2024 2:44 PM EDT [facility] Monocytes Absolute 0.03(L) 0.30 - 0.90 10*3/uL LAB HEMATOLOGY METHOD 11/24/2024 2:44 PM EDT [facility] Eosinophils Absolute 0.01 0.00 - 0.50 10*3/uL LAB HEMATOLOGY METHOD 11/24/2024 2:44 PM EDT [facility] Basophils Absolute 0.00 0.00 - 0.10 10*3/uL LAB HEMATOLOGY METHOD 11/24/2024 2:44 PM EDT [facility] Immature Granulocytes Absolute 0.00 0.00 - 0.06 10*3/uL LAB HEMATOLOGY METHOD 11/24/2024 2:44 PM EDT [facility] Blood Venous blood specimen / Unknown Venipuncture / Unknown 11/24/2024 2:07 PM EDT 11/24/2024 2:13 PM EDT Narrative [facility] - 11/24/2024 2:44 PM EDT Therapeutic decision making should be based on absolute values, rather than percentages. us Virgen Vargas MD LAB BLOOD ORDERABLES Final Re sult [facility] [address] [place] [address] * Comprehensive Metabolic Panel, Plasma (11/24/2024 2:07 PM EDT) [facility] Glucose, Plasma 97 74 - 99 mg/dL 11/24/2024 3:44 PM EDT [facility] BUN, Plasma 13 8 - 23 mg/dL 11/24/2024 3:44 PM EDT [facility] Creatinine, Plasma 0.97 0.70 - 1.20 mg/dL 11/24/2024 3:44 PM EDT [facility] BUN/Creatinine Ratio 13 11/24/2024 3:44 PM EDT [facility] Sodium, Plasma 138 136 - 145 mmol/L 11/24/2024 3:44 PM EDT [facility] Potassium, Plasma 3.7 3.6 - 4.9 mmol/L 11/24/2024 3:44 PM EDT [facility] Chloride, Plasma 107 97 - 107 mmol/L 11/24/2024 3:44 PM EDT [facility] CO2, Plasma 22 22 - 29 mmol/L 11/24/2024 3:44 PM EDT [facility] Anion Gap 9 6 - 16 mmol/L 11/24/2024 3:44 PM EDT [facility] Total Calcium, Plasma 9.5 8.9 - 10.2 mg/dL 11/24/2024 3:44 PM EDT [facility] Total Protein 6.7 6.3 - 7.9 g/dL 11/24/2024 3:44 PM EDT [facility] Albumin, Plasma 3.8 3.5 - 5.2 g/dL 11/24/2024 3:44 PM EDT [facility] AST, Plasma 18 10 - 50 U/L 11/24/2024 3:44 PM EDT [facility] ALT, Plasma 20 10 - 50 U/L 11/24/2024 3:44 PM EDT [facility] Alkaline Phosphatase, Plasma 71 40 - 115 U/L 11/24/2024 3:44 PM EDT [facility] Total Bilirubin, Plasma 0.7 0.2 - 1.1 mg/dL 11/24/2024 3:44 PM EDT [facility] eGFRcr 84.5 mL/min/1.7 3m*2 11/24/2024 3:44 PM EDT [facility] Comment:Reported eGFRcr in m L/min/1.73m2 is based the CKD-EPI 2020 equation that does not use a race coefficient. Blood Venous blood specimen / Unknown Venipuncture / Unknown 11/24/2024 2:07 PM EDT 11/24/2024 2:44 PM EDT us Virgen Vargas MD LAB BLOOD ORDERABLES Final Re sult [facility] [address] [place] [address] * (ABNORMAL) Comprehensive Metabolic Panel, Plasma (11/20/2024 1:49 PM EDT) Pathologist [facility] Glucose, Plasma 100(H) 74 - 99 mg/dL 11/20/2024 2:45 PM EDT [facility] BUN, Plasma 11 8 - 23 mg/dL 11/20/2024 2:45 PM EDT [facility] Creatinine, Plasma 1.01 0.70 - 1.20 mg/dL 11/20/2024 2:45 PM EDT [facility] BUN/Creatinine Ratio 11 11/20/2024 2:45 PM EDT [facility] Sodium, Plasma 135(L) 136 - 145 mmol/L 11/20/2024 2:45 PM EDT [facility] Potassium, Plasma 4.1 3.6 - 4.9 mmol/L 11/20/2024 2:45 PM EDT [facility] Chloride, Plasma 106 97 - 107 mmol/L 11/20/2024 2:45 PM EDT [facility] CO2, Plasma 21(L) 22 - 29 mmol/L 11/20/2024 2:45 PM EDT [facility] Anion Gap 8 6 - 16 mmol/L 11/20/2024 2:45 PM EDT [facility] Total Calcium, Plasma 9.1 8.9 - 10.2 mg/dL 11/20/2024 2:45 PM EDT [facility] Total Protein 6.7 6.3 - 7.9 g/dL 11/20/2024 2:45 PM EDT [facility] Albumin, Plasma 3.9 3.5 - 5.2 g/dL 11/20/2024 2:45 PM EDT [facility] AST, Plasma 26 10 - 50 U/L 11/20/2024 2:45 PM EDT [facility] ALT, Plasma 43 10 - 50 U/L 11/20/2024 2:45 PM EDT [facility] Alkaline Phosphatase, Plasma 71 40 - 115 U/L 11/20/2024 2:45 PM EDT [facility] Total Bilirubin, Plasma 0.7 0.2 - 1.1 mg/dL 11/20/2024 2:45 PM EDT [facility] eGFRcr 80.5 mL/min/1.7 3m*2 11/20/2024 2:45 PM EDT [facility] Comment:Reported eGFRcr in m L/min/1.73m2 is based the CKD-EPI 2020 equation that does not use a race coefficient. Blood Venous blood specimen / Unknown Venipuncture / Unknown 11/20/2024 1:49 PM EDT 11/20/2024 2:13 PM EDT us Virgen Vargas MD LAB BLOOD ORDERABLES Final Re sult [facility] [address] [place] [address] documented in this encounter Visit Diagnoses Diagnosis [...] documented as of this encounter Care Teams Jig Boring Machine Set Up Operator Relationship Specialty Start Date End Date Zhao Harris MD [address] [place] [address] PCP - General 12/03/20 documented as of this encounter
--- OUTSIDE RECORDS SUMMARY | 2025-01-05 08:25 | XMS_ITS | Encounter Summary ---
Author Organization [facility] Address [address] [place] [address] Care Team Providers Care Coding Auditor Name Role Phone Zhao Harris MD Primary Care Provider [phone] Encounter Details Date Type Department Care Team [...] drink first t manav in the morning (EYE-COTTON AGENT) to steady your nerves or to get [...] ([facility] st Contact Info) Description 01/06/2025 8:30 AM EDT Clinical Support [facility] CC Hematology/BMT and Cellular Therapy Program [address] [place] [phone] 01/06/2025 9:00 AM EDT Procedure Visit [facility] CC Hematology/BMT and Cellular Therapy Program [address] [phone] Kierra Novak, BEAD WIRE INSULATOR 800 [facility] [address] [place] [phone] 01/13/2025 9:30 AM EDT Clinical Support [facility] CC Hematology/BMT and Cellular Therapy Program [address] [phone] 01/13/2025 10:00 AM EDT Office Visit [facility] CC Hematology/BMT and Cellular Therapy Program [address] [phone] Isaura Wynn, BEAD WIRE INSULATOR 800 [facility] [address] [place] [phone] 01/13/2025 11:30 AM EDT Appointment [facility] Infusion [address] [place] [phone] 01/14/2025 2:00 PM EDT Appointment [facility] [address] [place] [phone] 01/15/2025 2:00 PM EDT Appointment [facility] [address] [place] [phone] 01/16/2025 2:00 PM EDT Appointment [facility] [address] [place] [phone] 01/17/2025 2:00 PM EDT Appointment [facility] [address] [place] [address] 01/18/2025 2:00 PM EDT Appointment [facility] [address] [place] [address] 01/19/2025 2:00 PM EDT Appointment [facility] [address] [place] [address] 03/10/2025 11:20 AM EDT Office Visit Pav CC Head, Neck & Respiratory 800 [facility], 2nd [place] [address] Elsa Razo, BEAD WIRE INSULATOR [address] [place] [address] documented as of this encounter Visit Diagnoses [...] documented as of this encounter Care Teams Coding Auditor Relationship Specialty Start Date End Date Zhao Harris MD [address] [place] [phone] PCP - General 12/03/20 documented as of this encounter
--- OUTSIDE RECORDS SUMMARY | 2025-01-05 08:25 | XMS_ITS | Encounter Summary ---
Author Organization Healthcare Address [address] [place] [address] Care Team Providers Care Inflatable Buildings Laminator Name Role Phone Zhao Harris MD Primary Care Provider [phone] Encounter Details Date Type Department Care Team (Late st Contact Info) Description 11/18/2024 Telephone [facility] [address] [place] [address] Maia Velasquez, PharmD [facility] [place] [phone] Social History Tobacco Use Types Packs/Day Years [...] drink first t manav in the morning (EYE-TRAIN DRIVER) to steady your nerves or to get [...] start on 11/19 due to inability for [facility] to get it to patient in time to start this evening. They will picking table worker at [facility] on 11/19. Tolerated C1 well, only had one vomiting episode when didn't take zofran. NO questions or concerns today. documented in this encounter Plan of Treatment Upcoming Encounters Date Type Department Care Team ([facility] st Contact Info) Description 01/06/2025 8:30 AM EDT Clinical Support [facility] CC Hematology/BMT and Cellular Therapy Program [address] [place] [address] 01/06/2025 9:00 AM EDT Procedure Visit [facility] CC Hematology/BMT and Cellular Therapy Program 750 [facility], [address] [place] [address] [place] [address] Kierra Novak, CHUTE BUILDER 800 [facility] [address] [place] [phone] 01/13/2025 9:30 AM EDT Clinical Support [facility] Hematology/BMT and Cellular Therapy Program [address] [phone] 01/13/2025 10:00 AM EDT Office Visit [facility] CC Hematology/BMT and Cellular Therapy Program 750 [facility], [address] [place] [phone] Isaura Wynn, CHUTE BUILDER 800 [facility] [address] [place] [phone] 01/13/2025 11:30 AM EDT Appointment [facility] 800 [place] [address] 01/14/2025 2:00 PM EDT Appointment [facility] [address] [place] [address] 01/15/2025 2:00 PM EDT Appointment [facility] [address] [place] [address] 01/16/2025 2:00 PM EDT Appointment [facility] [address] [place] [address] 01/17/2025 2:00 PM EDT Appointment [facility] [address] [place] [address] 01/18/2025 2:00 PM EDT Appointment [facility] [address] [place] [address] 01/19/2025 2:00 PM EDT Appointment [facility] [address] [place] [phone] 03/10/2025 11:20 AM EDT Office Visit Pav CC Head, Neck & Respiratory 800 [facility], 2nd [place] [phone] Elsa Razo, CHUTE BUILDER 800 [place] [address] documented as of this encounter [...] documented as of this encounter Care Teams Inflatable Buildings Laminator Relationship Specialty Start Date End Date Zhao Harris MD [address] [place] [address] PCP - General 12/03/20 documented as of this encounter
--- OUTSIDE RECORDS SUMMARY | 2025-01-05 08:25 | XMS_ITS | Encounter Summary ---
Author Organization [facility] Address [address] [place] [address] Care Team Providers Care Sample Paster Name Role Phone Zhao Harris MD Primary Care Provider [phone] Encounter Details Date Type Department Care Team [...] drink first t manav in the morning (EYE-AUTO CARRIER DRIVER) to steady your nerves or to [...] Hematology/BMT and Cellular Therapy Program [address] [place] [phone] 01/06/2025 9:00 AM EDT Procedure Visit [facility] Hematology/BMT and Cellular Therapy Program [address] [address] Kierra Novak, HEAD GOLF COACH 800 [facility] [address] [place] [phone] 01/13/2025 9:30 AM EDT Clinical Support [facility] Hematology/BMT and Cellular Therapy Program [address] [address] 01/13/2025 10:00 AM EDT Office Visit [facility] Hematology/BMT and Cellular Therapy Program [address] [phone] Isaura Wynn, HEAD GOLF COACH 800 [facility] [address] [place] [phone] 01/13/2025 11:30 AM EDT Appointment [facility] Infusion 800 [place] [address] 01/14/2025 2:00 PM EDT Appointment [facility] 800 [place] [address] 01/15/2025 2:00 PM EDT Appointment [facility] 800 [place] [address] 01/16/2025 2:00 PM EDT Appointment [facility] 800 [place] [address] 01/17/2025 2:00 PM EDT Appointment [facility] 800 [place] [address] 01/18/2025 2:00 PM EDT Appointment [facility] 800 [place] [address] 01/19/2025 2:00 PM EDT Appointment [facility] 800 [place] [address] 03/10/2025 11:20 AM EDT Office Visit [facility] Head, Neck & Respiratory 800 [facility], 2nd [place] [address] Elsa Razo, HEAD GOLF COACH 800 [place] [address] documented as of this encounter Visit Diagnoses [...] documented as of this encounter Care Teams Sample Paster Relationship Specialty Start Date End Date Zhao Harris MD [address] [place] [address] PCP - General 12/03/20 documented as of this encounter
--- OUTSIDE RECORDS SUMMARY | 2025-01-05 08:25 | XMS_ITS | Encounter Summary ---
Author Organization [facility] Address [address] [place] [address] Care Team Providers Care Gravity Prospecting Supervisor Name Role Phone Zhao Harris MD Primary Care Provider [phone] Encounter Details Date Type Department Care Team [...] drink first t manav in the morning (EYE-SYSTEMS ARCHITECTURE ANALYST) to steady your nerves or to [...] Hematology/BMT and Cellular Therapy Program [address] [place] [phone] 01/06/2025 9:00 AM EDT Procedure Visit [facility] Hematology/BMT and Cellular Therapy Program [address] [address] Kierra Novak, PAINTER SPRAY 800 [facility] [address] [place] [phone] 01/13/2025 9:30 AM EDT Clinical Support [facility] Hematology/BMT and Cellular Therapy Program [address] [address] 01/13/2025 10:00 AM EDT Office Visit [facility] Hematology/BMT and Cellular Therapy Program [address] [phone] Isaura Wynn, PAINTER SPRAY 800 [facility] [address] [place] [phone] 01/13/2025 11:30 AM EDT Appointment [facility] Infusion 800 [place] [address] 01/14/2025 2:00 PM EDT Appointment [facility] 800 [place] [address] 01/15/2025 2:00 PM EDT Appointment [facility] 800 [place] [address] 01/16/2025 2:00 PM EDT Appointment [facility] 800 [place] [address] 01/17/2025 2:00 PM EDT Appointment [facility] 800 [place] [address] 01/18/2025 2:00 PM EDT Appointment [facility] 800 [place] [address] 01/19/2025 2:00 PM EDT Appointment [facility]fusion 800 [place] [address] 03/10/2025 11:20 AM EDT Office Visit Pav CC Head, Neck & Respiratory 800 [facility], 2nd [place] [address] Elsa Razo, PAINTER SPRAY 800 [place] [address] documented as of this encounter Visit Diagnoses [...] documented as of this encounter Care Teams Gravity Prospecting Supervisor Relationship Specialty Start Date End Date Zhao Harris MD [address] [place] [phone] PCP - General 12/03/20 documented as of this encounter
--- OUTSIDE RECORDS SUMMARY | 2025-01-05 08:26 | XMS_ITS | Encounter Summary ---
Author Organization [facility] Address [address] [place] [address] Care Team Providers Care Criminalist Technician Name Role Phone Zhao Harris MD Primary Care Provider [phone] Encounter Details Date Type Department Care Team [...] Have you had a drink first t maanv in the morning (EYE-SENIOR PL SQL DEVELOPER) to steady your nerves or to [...] [facility] Contact Info) Description 01/06/2025 8:30 AM EDT Clinical Support [facility] Hematology/BMT and Cellular Therapy Program [address] [phone] 01/06/2025 9:00 AM EDT Procedure Visit [facility] Hematology/BMT and Cellular Therapy Program [address] [address] Kierra Novak, CERTIFIED RESIDENTIAL MEDICATION AIDE 800 [facility] [address] [place] [phone] 01/13/2025 9:30 AM EDT Clinical Support [facility] CC Hematology/BMT and Cellular Therapy Program [address] [address] 01/13/2025 10:00 AM EDT Office Visit [facility] Hematology/BMT and Cellular Therapy Program [address] [phone] Isaura Wynn, CERTIFIED RESIDENTIAL MEDICATION AIDE 800 [facility] [address] [place] [phone] 01/13/2025 11:30 AM EDT Appointment [facility] Infusion 800 [place] [address] 01/14/2025 2:00 PM EDT Appointment [facility]fusion 800 [place] [address] 01/15/2025 2:00 PM EDT Appointment [facility] Infusion 800 [place] [address] 01/16/2025 2:00 PM EDT Appointment [facility]fusion 800 [place] [address] 01/17/2025 2:00 PM EDT Appointment [facility] Infusion 800 [place] [address] 01/18/2025 2:00 PM EDT Appointment [facility] Infusion 800 [place] [address] 01/19/2025 2:00 PM EDT Appointment [facility] Infusion 800 [place] [address] 03/10/2025 11:20 AM EDT Office Visit Pav CC Head, Neck & Respiratory 800 [facility], 2nd [place] [address] Elsa Razo, CERTIFIED RESIDENTIAL MEDICATION AIDE 800 [place] [address] documented as of this encounter Visit Diagnoses [...] documented as of this encounter Care Teams Criminalist Technician Relationship Specialty Start Date End Date Zhao Harris MD [address] [place] [address] [phone] PCP - General 12/03/20 documented as of this encounter
--- OUTSIDE RECORDS SUMMARY | 2025-01-05 08:26 | XMS_ITS | Encounter Summary ---
Author Organization [facility] Address [address] [place] [address] Care Team Providers Care Supervisor Scenic Arts Name Role Phone Zhao Harris MD Primary Care Provider [phone] Encounter Details Date Type Department Care Team [...] drink first t manav in the morning (EYE-TRACK WALKER) to steady your nerves or to get [...] Upcoming Encounters Date Type Department Care Team ([facility] st Contact Info) Description 01/06/2025 8:30 AM EDT Clinical Support [facility] Hematology/BMT and Cellular Therapy Program [address] [place] [phone] 01/06/2025 9:00 AM EDT Procedure Visit [facility] Hematology/BMT and Cellular Therapy Program [address] [phone] Kierra Novak, MILL TENDER SECOND OPERATOR 800 [facility] [address] [place] [phone] 01/13/2025 9:30 AM EDT Clinical Support [facility] Hematology/BMT and Cellular Therapy Program [address] [address] 01/13/2025 10:00 AM EDT Office Visit [facility] Hematology/BMT and Cellular Therapy Program [address] [phone] Isaura Wynn, MILL TENDER SECOND OPERATOR 800 [facility] [address] [place] [phone] 01/13/2025 11:30 AM EDT Appointment [facility] Infusion 800 [place] [address] 01/14/2025 2:00 PM EDT Appointment [facility] Infusion 800 [place] [address] 01/15/2025 2:00 PM EDT Appointment [facility] Infusion 800 [place] [address] 01/16/2025 2:00 PM EDT Appointment [facility] Infusion 800 [place] [address] 01/17/2025 2:00 PM EDT Appointment [facility] Infusion 800 [place] [address] 01/18/2025 2:00 PM EDT Appointment [facility] Infusion 800 [place] [address] 01/19/2025 2:00 PM EDT Appointment [facility] Infusion 800 [place] [address] 03/10/2025 11:20 AM EDT Office Visit Pav CC Head, Neck & Respiratory 800 [facility], 2nd [place] [address] Elsa Razo, MILL TENDER SECOND OPERATOR 800 [place] [address] documented as of this encounter Visit Diagnoses [...] as of this encounter Care Teams Supervisor Scenic Arts Relationship Specialty Start Date End Date Zhao Harris MD [address] [place] [id number] PCP - General 12/03/20 documented as of this encounter
--- OUTSIDE RECORDS SUMMARY | 2025-01-05 08:26 | XMS_ITS | Encounter Summary ---
Author Organization [facility] Address [address] [place] [address] Care Team Providers Care Disability Advocate Name Role Phone Zhao Harris MD Primary Care Provider [phone] Encounter Details Date Type Department Care Team [...] drink first t manav in the morning (EYE-CRM MARKETING SPECIALIST) to steady your nerves or to [...] Upcoming Encounters Date Type Department Care Team ([facility] st Contact Info) Description 01/06/2025 8:30 AM EDT Clinical Support [facility] CC Hematology/BMT and Cellular Therapy Program [address] [place] [phone] 01/06/2025 9:00 AM EDT Procedure Visit [facility] CC Hematology/BMT and Cellular Therapy Program [address] [address] Kierra Novak, STATISTICAL MODELER 800 [facility] [address] [place] [phone] 01/13/2025 9:30 AM EDT Clinical Support [facility] CC Hematology/BMT and Cellular Therapy Program [address] [address] 01/13/2025 10:00 AM EDT Office Visit [facility] CC Hematology/BMT and Cellular Therapy Program [address] [phone] Isaura Wynn, STATISTICAL MODELER 800 [facility] [address] [place] [phone] 01/13/2025 11:30 AM EDT Appointment [facility] Infusion 800 [place] [address] 01/14/2025 2:00 PM EDT Appointment [facility] Infusion 800 [place] [address] 01/15/2025 2:00 PM EDT Appointment [facility] Infusion [address] [place] [address] 01/16/2025 2:00 PM EDT Appointment [facility] Infusion 800 [place] [address] 01/17/2025 2:00 PM EDT Appointment [facility] Infusion 800 [place] [address] 01/18/2025 2:00 PM EDT Appointment [facility] Infusion [address] [place] [address] 01/19/2025 2:00 PM EDT Appointment [facility] Infusion 800 [place] [address] 03/10/2025 11:20 AM EDT Office Visit Pav CC Head, Neck & Respiratory 800 [facility], 2nd [place] [address] Elsa Razo, STATISTICAL MODELER 800 [place] [address] documented as of this encounter Visit Diagnoses [...] documented as of this encounter Care Teams Disability Advocate Relationship Specialty Start Date End Date Zhao Harris MD [address] [place] [phone] PCP - General 12/03/20 documented as of this encounter
--- OUTSIDE RECORDS SUMMARY | 2025-01-05 08:26 | XMS_ITS | Encounter Summary ---
Author Organization [facility] Address [address] [place] [address] Care Team Providers Care Typing Pool Supervisor Name Role Phone Zhao Harris MD Primary Care Provider [phone] Encounter Details Date Type Department Care Team [...] t manav in the morning (EYE-CALL CENTER SUPPORT CONSULTANT) to steady your nerves or to [...] Hematology/BMT and Cellular Therapy Program [address] [place] [phone] 01/06/2025 9:00 AM EDT Procedure Visit [facility] CC Hematology/BMT and Cellular Therapy Program [address] [address] Kierra Novak, MMD UNIT TEACHER 800 [facility] [address] [place] [phone] 01/13/2025 9:30 AM EDT Clinical Support P[facility] CC Hematology/BMT and Cellular Therapy Program [address] [address] 01/13/2025 10:00 AM EDT Office Visit [facility] CC Hematology/BMT and Cellular Therapy Program [address] [phone] Isaura Wynn, MMD UNIT TEACHER 800 [facility] [address] [place] [phone] 01/13/2025 11:30 AM EDT Appointment [facility] H Infusion 800 [place] [address] 01/14/2025 2:00 PM EDT Appointment [facility] Infusion 800 [place] [address] 01/15/2025 2:00 PM EDT Appointment [facility] Infusion 800 [place] [address] 01/16/2025 2:00 PM EDT Appointment [facility] Infusion 800 [place] [address] 01/17/2025 2:00 PM EDT Appointment [facility] Infusion 800 [place] [address] 01/18/2025 2:00 PM EDT Appointment [facility] Infusion 800 [place] [address] 01/19/2025 2:00 PM EDT Appointment [facility] H Infusion 800 [place] [address] 03/10/2025 11:20 AM EDT Office Visit Pav CC Head, Neck & Respiratory 800 [facility], 2nd [place] [address] Elsa Razo, MMD UNIT TEACHER 800 [place] [address] documented as of this encounter Visit Diagnoses [...] documented as of this encounter Care Teams Typing Pool Supervisor Relationship Specialty Start Date End Date Zhao Harris MD [address] [place] [phone] PCP - General 12/03/20 documented as of this encounter
--- OUTSIDE RECORDS SUMMARY | 2025-01-05 08:26 | XMS_ITS | Encounter Summary ---
Author Organization [facility] Address [address] [place] [address] Care Team Providers Care Sample Case Porter Name Role Phone Zhao Harris MD Primary Care Provider [phone] Encounter Details Date Type Department Care Team [...] drink first t manav in the morning (EYE-BEEF CATTLE FARMER) to steady your nerves or to [...] ([facility] st Contact Info) Description 01/06/2025 8:30 AM EDT Clinical Support P[facility] CC Hematology/BMT and Cellular Therapy Program [address] [place] [phone] 01/06/2025 9:00 AM EDT Procedure Visit [facility] CC Hematology/BMT and Cellular Therapy Program [address] [address] Kierra Novak, ELECTRIC UTILITY LINEWORKER 800 [facility] [address] [place] [phone] 01/13/2025 9:30 AM EDT Clinical Support P[facility] CC Hematology/BMT and Cellular Therapy Program [address] [address] 01/13/2025 10:00 AM EDT Office Visit [facility] CC Hematology/BMT and Cellular Therapy Program [address] [phone] Isaura Wynn, ELECTRIC UTILITY LINEWORKER 800 [facility] [address] [place] [phone] 01/13/2025 11:30 AM EDT Appointment P[facility] H Infusion 800 [place] [phone] 01/14/2025 2:00 PM EDT Appointment [facility] H Infusion 800 [place] [address] 01/15/2025 2:00 PM EDT Appointment [facility] Infusion 800 [place] [address] 01/16/2025 2:00 PM EDT Appointment [facility] Infusion 800 [place] [address] 01/17/2025 2:00 PM EDT Appointment [facility] Infusion 800 [place] [address] 01/18/2025 2:00 PM EDT Appointment [facility] Infusion 800 [place] [address] 01/19/2025 2:00 PM EDT Appointment [facility] Infusion 800 [place] [address] 03/10/2025 11:20 AM EDT Office Visit Pav CC Head, Neck & Respiratory 800 [facility], 2nd [place] [address] Elsa Razo, ELECTRIC UTILITY LINEWORKER 800 [place] [address] documented as of this encounter Visit Diagnoses [...] as of this encounter Care Teams Sample Case Porter Relationship Specialty Start Date End Date Zhao Harris MD [address] [place] [phone] PCP - General 12/03/20 documented as of this encounter
--- OUTSIDE RECORDS SUMMARY | 2025-01-05 08:26 | XMS_ITS | Encounter Summary ---
Author Organization [facility] Address [address] [place] [address] Care Team Providers Care Nursing Unit Coordinator Name Role Phone Zhao Harris MD Primary Care Provider [phone] Reason for Visit * Reason Onset Date Comments Distress Screen Follow-up 11/25/2024 Encounter Details Date Type Department Care Team (Late st Contact Info) Description 11/25/2024 Telephone P[facility] CC Hematology/BMT and Cellular Therapy Program [address] [place] [address] [place] [address] Michelle Mast Distress Screen Follow-up Social History [...] drink first t manav in the morning (EYE-WEB PAGE DEVELOPER) to steady your nerves or to [...] Upcoming Encounters Date Type Department Care Team ([facility] Contact Info) Description 01/06/2025 8:30 AM EDT Clinical Support PAV Hematology/BMT and Cellular Therapy Program [address] [place] [phone] 01/06/2025 9:00 AM EDT Procedure Visit PAV Hematology/BMT and Cellular Therapy Program [address] [address] Kierra Novak, FACTORY CLERK 800 [facility] [address] [place] [phone] 01/13/2025 9:30 AM EDT Clinical Support PAV Hematology/BMT and Cellular Therapy Program [address] [address] 01/13/2025 10:00 AM EDT Office Visit PAV Hematology/BMT and Cellular Therapy Program [address] [place] [phone] Isaura Wynn, FACTORY CLERK 800 [facility] [address] [place] [address] 01/13/2025 11:30 AM EDT Appointment P[facility] H Infusion 800 [place] [phone] 01/14/2025 2:00 PM EDT Appointment [facility] Infusion 800 [place] [address] 01/15/2025 2:00 PM EDT Appointment [facility] Infusion 800 [place] [address] 01/16/2025 2:00 PM EDT Appointment [facility] Infusion [address] [place] [address] 01/17/2025 2:00 PM EDT Appointment [facility] Infusion 800 [place] [address] 01/18/2025 2:00 PM EDT Appointment [facility] Infusion 800 [place] [address] 01/19/2025 2:00 PM EDT Appointment [facility] H Infusion 800 [place] [address] 03/10/2025 11:20 AM EDT Office Visit Pav CC Head, Neck & Respiratory 800 [facility], 2nd [place] [phone] Elsa Razo, FACTORY CLERK 800 [place] [phone] documented as of this encounter Visit Diagnoses [...] documented as of this encounter Care Teams Nursing Unit Coordinator Relationship Specialty Start Date End Date Zhao Harris MD [address] [place] [address] PCP - General 12/03/20 documented as of this encounter
--- OUTSIDE RECORDS SUMMARY | 2025-01-05 08:27 | XMS_ITS | Encounter Summary ---
Author Organization [facility] Address [address] 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, unspecified vessel or [...] and Cellular Therapy Program 750 [facility], [address] [place] [address] [place] [phone] 01/06/2025 9:00 AM EDT Procedure Visit P[facility] CC Hematology/BMT and Cellular Therapy Program 750 [facility], [address] [place] [phone] Kierra Novak, BAIL BONDSMAN 800 [facility] [address] [place] [phone] 01/13/2025 9:30 AM EDT Clinical Support [facility] CC Hematology/BMT and Cellular Therapy Program [address] [phone] 01/13/2025 10:00 AM EDT Office Visit P[facility] CC Hematology/BMT and Cellular Therapy Program [address] [phone] Isaura Wynn, BAIL BONDSMAN 800 [facility] [address] [place] [phone] 01/13/2025 11:30 AM EDT Appointment [facility] Infusion 800 [place] [address] 01/14/2025 2:00 PM EDT Appointment [facility]fusion [address] [place] [address] 01/15/2025 2:00 PM EDT Appointment [facility] Infusion [address] [place] [address] 01/16/2025 2:00 PM EDT Appointment [facility] Infusion [address] [place] [address] 01/17/2025 2:00 PM EDT Appointment [facility] Infusion 800 [place] [phone] 01/18/2025 2:00 PM EDT Appointment [facility] Infusion [address] [place] [address] 01/19/2025 2:00 PM EDT Appointment [facility] Infusion [address] [place] [address] 03/10/2025 11:20 AM EDT Office Visit Pav CC Head, Neck & Respiratory 800 [facility], 2nd [place] [address] Elsa Razo, BAIL BONDSMAN 800 [place] [address] documented as of this encounter Visit Diagnoses Diagnosis 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
--- OUTSIDE RECORDS SUMMARY | 2025-01-05 08:27 | XMS_ITS | Encounter Summary ---
Author Organization [facility] Address [address] [place] [address] Care Team Providers Care Service Center Representative Name Role Phone Zhao Harris MD Primary Care Provider [phone] Reason for Visit * Reason Comments Med Refill Encounter Details Date Type Department Care Team ([facility] Contact Info) Description 01/18/2022 Refill [facility] [place] [address] [facility], [address] [place] [address] Regina Hill, PA 800 [place] [address] Hypertension, unspecified type Social History [...] Hematology/BMT and Cellular Therapy Program [address] [place] [phone] 01/06/2025 9:00 AM EDT Procedure Visit [facility] Hematology/BMT and Cellular Therapy Program [address] [place] [phone] Kierra Novak, FORCER MAKER 800 [facility] [address] [place] [phone] 01/13/2025 9:30 AM EDT Clinical Support [facility] CC Hematology/BMT and Cellular Therapy Program 750 [facility], [address] [place] [phone] 01/13/2025 10:00 AM EDT Office Visit [facility] CC Hematology/BMT and Cellular Therapy Program 750 [facility], [address] [place] [phone] Isaura Wynn, FORCER MAKER 800 [facility] [address] [place] [phone] 01/13/2025 11:30 AM EDT Appointment P[facility] H Infusion 800 [place] [address] 01/14/2025 2:00 PM EDT Appointment [facility] H Infusion 800 [place] [address] 01/15/2025 2:00 PM EDT Appointment [facility] H Infusion 800 [place] [address] 01/16/2025 2:00 PM EDT Appointment [facility] H Infusion 800 [place] [address] 01/17/2025 2:00 PM EDT Appointment [facility] H Infusion [address] [place] [address] 01/18/2025 2:00 PM EDT Appointment [facility] H Infusion [address] [place] [address] 01/19/2025 2:00 PM EDT Appointment [facility] H Infusion [address] [place] [address] 03/10/2025 11:20 AM EDT Office Visit [facility] Head, Neck & Respiratory 800 [facility], 2nd [place] [address] Elsa Razo, FORCER MAKER 800 [place] [phone] documented as of this encounter Visit Diagnoses Diagnosis Hypertension, unspecified type documented in this encounter Additional Health Concerns Infection Onset Date Last Indicated Resolved Time Respiratory Rule-Out 11/03/2024 11/03/2024 025 5:17 PM EDT documented as of this encounter Care Teams Service Center Representative Relationship Specialty Start Date End Date Zhao Harris MD [address] [place] [address] PCP - General 12/03/20 documented as of this encounter
--- OUTSIDE RECORDS SUMMARY | 2025-01-05 08:27 | XMS_ITS | Encounter Summary ---
Author Organization [facility] Address [address] [place] [address] Care Team Providers Care Supervisor Rod Placing Name Role Phone Zhao Harris MD Primary Care Provider [phone] Reason for Visit * Reason Comments Med Refill Encounter Details Date Type Department Care Team ([facility] Contact Info) Description 02/20/2022 [facility]ill [facility] [place] [address] [facility], [address] [place] [address] Regina Hill, ARAM 800 [place] [address] Social History Tobacco Use Types [...] Hematology/BMT and Cellular Therapy Program [address] [phone] 01/06/2025 9:00 AM EDT Procedure Visit [facility] CC Hematology/BMT and Cellular Therapy Program 750 [facility], [address] [place] [phone] Kierra Novak, NETWORK CONSULTANT 800 [facility] [address] [place] [phone] 01/13/2025 9:30 AM EDT Clinical Support [facility] CC Hematology/BMT and Cellular Therapy Program [address] [phone] 01/13/2025 10:00 AM EDT Office Visit [facility] CC Hematology/BMT and Cellular Therapy Program 750 [facility], [address] [place] [phone] Isaura Wynn, NETWORK CONSULTANT 800 [facility] [address] [place] [phone] 01/13/2025 11:30 AM EDT Appointment [facility] H Infusion 800 [place] [address] 01/14/2025 2:00 PM EDT Appointment [facility] Infusion 800 [place] [address] 01/15/2025 2:00 PM EDT Appointment [facility] Infusion 800 [place] [address] 01/16/2025 2:00 PM EDT Appointment [facility] Infusion 800 [place] [address] 01/17/2025 2:00 PM EDT Appointment [facility] Infusion 800 [place] [address] 01/18/2025 2:00 PM EDT Appointment [facility] Infusion 800 [place] [address] 01/19/2025 2:00 PM EDT Appointment [facility] Infusion 800 [place] [phone] 03/10/2025 11:20 AM EDT Office Visit Pav CC Head, Neck & Respiratory 800 [facility], 2nd [place] [phone] Elsa Razo, NETWORK CONSULTANT 800 [place] [address] documented as of this encounter Visit Diagnoses Not on filedocumented in this encounter Additional Health Concerns Infection Onset Date Last Indicated Resolved Time Respiratory Rule-Out 11/03/2024 11/03/2024 025 5:17 PM EDT documented as of this encounter Care Teams Supervisor Rod Placing Relationship Specialty Start Date End Date Zhao Harris MD [address] [place] [address] PCP - General 12/03/20 documented as of this encounter
--- OUTSIDE RECORDS SUMMARY | 2025-01-05 08:27 | XMS_ITS | Encounter Summary ---
Author Organization [facility] Address [address] [place] [address] Care Team Providers Care Typesetting Machine Operator/Tender Name Role Phone Zhao Harris MD Primary Care Provider [phone] Encounter Details Date Type Department Care Team (Late Contact Info) Description 10/15/2024 Lab Requisition [facility] H Lab 800 [place] [address] Virgen Vargas MD 800 [facility] [address] [place] [phone] Abnormal finding of blood chemistry, unspecified Social [...] Hematology/BMT and Cellular Therapy Program [address] [place] [address] 01/06/2025 9:00 AM EDT Procedure Visit [facility] CC Hematology/BMT and Cellular Therapy Program [address] [place] [phone] Kierra Novak, CHARACTER ACTOR 800 [facility] [address] [place] [phone] 01/13/2025 9:30 AM EDT Clinical Support [facility] CC Hematology/BMT and Cellular Therapy Program [address] [address] 01/13/2025 10:00 AM EDT Office Visit [facility] Hematology/BMT and Cellular Therapy Program [address] [address] Isaura Wynn, CHARACTER ACTOR 800 [facility] [address] [place] [phone] 01/13/2025 11:30 AM EDT Appointment [facility] H Infusion 800 [place] [address] 01/14/2025 2:00 PM EDT Appointment [facility] Infusion 800 [place] [address] 01/15/2025 2:00 PM EDT Appointment [facility] Infusion [address] [place] [address] 01/16/2025 2:00 PM EDT Appointment [facility] Infusion [address] [place] [address] 01/17/2025 2:00 PM EDT Appointment [facility] Infusion [address] [place] [address] 01/18/2025 2:00 PM EDT Appointment [facility] H Infusion [address] [place] [address] 01/19/2025 2:00 PM EDT Appointment [facility] H Infusion [address] [place] [address] 03/10/2025 11:20 AM EDT Office Visit Pav CC Head, Neck & Respiratory 800 [facility], 2nd [place] [address] RazoElsa, CHARACTER ACTOR 800 [place] [phone] documented as of this encounter Procedures Procedure Name Priority Date/Time Associated Diagnosis Comments BONE MARROW EXAM CONSULT Routine 10/15/2024 1:27 PM EDT Abnormal finding of blood chemistry, unspecified documented in this encounter Results * Bone marrow exam consult (10/15/2024 1:27 PM EDT) Case Report Bone Marrow Case: [id number] Authorizing Provider: Virgen Vargas MD Collected: 10/15/2024 1327 Ordering Location: [facility] Lab Received: 10/15/2024 1327 Pathologist: Martha Lopez MD Specimen: Bone Marrow Aspirate, [id number] 10/16/2024 2:02 PM EDT [facility] Final Diagnosis A. 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 10/16/2024 2:02 PM EDT [facility] Clinical Information R79.9 - Abnormal finding of blood chemistry, unspecified [ICD-10-CM] 10/16/2024 2:02 PM EDT [facility] CBC and Differential PERIPHERAL BLOOD: 10/13/2024: [...] Granulocytes % 0 10/16/2024 2:02 PM EDT [facility] Bone Marrow Differential BONE MARROW DIFFERENTIAL: 200 cells Normal Patient Neutrophils 15-50 22 Metamyelocytes 4-19 3 Myelocytes 1-18 11 Promyelocytes 1-8 1 Blasts 0-2 13 Monocytes 0-5 4 Erythroid 16-38 41 Lymphocytes 3-24 4 Eosinophils 0-6 1 Basophils 0-2 0 Plasma cells 0-4 0 Other 10/16/2024 2:02 PM T [facility] Bone Marrow Aspirate and Biopsy [...] trabeculae are unremarkable. 10/16/2024 2:02 PM T [facility] Flow Cytometry Interpretation Outside flow cytometry showed 17% myeloblasts expressing CD34, CD117, partial CD 38, partial CD7, HLA-DR, CD13 and variable CD33. 10/16/2024 2:02 PM T [facility] CYTOGENETICS/MOL ECULAR INTERPRETATION Cytogenetic analysis showed normal male karyotype. No FLT3 duplication or mutation was identified, and no NPM1 mutation was identified. 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 10/16/2024 2:02 PM T [facility] Gross Description A. [id number] Received along with a corresponding pathology report from Pathology & Cytology Laboratory are 12 slides labeled outside case: [id number] collected on 09/19/2024. 10/16/2024 2:02 PM EDT [facility] Bone Marrow Specimen from bone marrow obtained by aspiration / Unknown 10/15/2024 1:27 PM EDT 10/15/2024 1:27 PM EDT us Virgen Vargas MD LAB PATHOLOGY ORDERABLES Terri lara Result [facility] [address] [place] [address] documented in this encounter Visit Diagnoses Diagnosis [...] documented as of this encounter Care Teams Typesetting Machine Operator/Tender Relationship Specialty Start Date End Date Zhao Harris MD [address] [place] [address] PCP - General 12/03/20 documented as of this encounter
[2025-01-05 08:37] LABS: Chloride 114 mmol/L (98-107)
[2025-01-05 08:38] LABS: Hematocrit 22.4 % (42.0-52.0); Hemoglobin 7.6 g/dL (14.1-18.0); Immature Granulocytes # 0 10^3uL; Immature Granulocytes % 0 %; Lymphocytes # 0.5 K/mm3 (0.7-4.5); Lymphocytes % 89.3 % (10-50); Mean Corpuscular HGB Conc 33.9 g/dL (31.8-35.4); Mean Corpuscular Hemoglobin 28.9 pg (27.0-31.2); Mean Corpuscular Volume 85.2 fl (80-94); Monocytes % 5.4 % (1.7-9.3); Neutrophils % 5.3 % (37.0-80.0); Nucleated Red Blood Cells # 0.04 10^3/uL; Nucleated Red Blood Cells % 7.1 %; Red Blood Count 2.63 M/mm3 (4.60-6.20); Red Cell Distribution Width 14.9 % (11.5-17.5); Red Cell Distribution Width-SD 42.1 fL; Sodium 139 mmol/L (136-145)
[2025-01-05 08:40] LABS: Blood Urea Nitrogen 10 mg/dl (9-20); Creatinine Clearance Estimated 89 mL/min (50-200); Estimated Glomerular Filt Rate 112 ml/min (>60); GFR (African American) 135 ML/MIN (>60)
[2025-01-05 08:41] LABS: Alanine Aminotransferase 30 U/L (12-78); Alkaline Phosphatase 121 U/L (38-126); Aspartate Amino Transferase 35 U/L (17-59); Bilirubin,Total 0.4 mg/dl (0.2-1.3); Calcium 8.9 mg/dl (8.4-10.2); Carbon Dioxide 21 mmol/L (22.0-30.0); Glucose 139 mg/dl (74-100); Total Protein,Serum 6.5 g/dl (6.3-8.2)
[2025-01-05 08:43] LABS: Platelet Count 4 K/mm3 (142-424); White Blood Count 0.6 K/mm3 (4.8-10.8)
[2025-01-05 08:44] LABS: MANUAL DIFFERENTIAL MANUAL DIFFERENTIAL (MANUAL DIFF)
[2025-01-05 09:26] LABS: Lymphocytes % 88 % (10-50); Monocytes % 4 % (2-9); Neutrophils % 8 % (42-76); Total Cells Counted 25
[2025-01-05 09:27] LABS: Platelet Estimate Marked Decrease; RBC Morphology Normal
[2025-01-05 10:16] LABS: Albumin Level 3.6 g/dl (3.5-5.0); Albumin/Globulin Ratio 1.2 (1.1-1.8); Globulin 2.9 g/dL (1.3-3.2)
[2025-01-05] MEDS: diphenhydrAMINE 25MG CAPSULE 25 MG PO (14:34)
[2025-01-05] MEDS: ACETAMINOPHEN 325MG TAB 650 MG PO (14:34)
[2025-01-05 15:57] LABS: Platelet Count 89 K/mm3 (142-424)
[2025-01-05] MEDS: 0.9 % SODIUM CHLORIDE 250 ML 25 ML IV (16:34)
[2025-01-05] MEDS: SODIUM CHLORIDE 0.9% 10ML FLUSH SYRINGE 10 ML IV (16:36)
== END 2025-01-05 23:59 | disposition home or self-care (01) ==
LOC: INF 08:14
PROVIDERS: PCP Family Medicine; Visit Provider Internal Medicine Medical Oncology
DX: D64.9 Anemia, unspecified (principal)
CPT/HCPCS: 36415; 36430; 80053; 85007; 85025; 85027; 85049; 86850; J1642; J7050; P9016; P9034

== ENCOUNTER 2025-01-09 08:10 | Outpatient (CLI) | payer MEDICARE, SELFPAY ==
--- OUTSIDE RECORDS SUMMARY | 2024-11-10 13:30 | XMS_ITS | Encounter Summary ---
Author Organization Healthcare Address [address] [place] [address] Care Team Providers Care Monkey Trainer Name Role Phone Zhao Harris MD Primary Care Provider [phone] Reason for Visit * Reason Comments Labs Encounter Details Date Type Department Care Team ([facility] st Contact Info) Description 11/10/2024 1:30 PM EDT Clinical Support [facility] Hematology/BMT and Cellular Therapy Program [address] [place] [address] [place] [address] Eliana Vicente, RN [facility]AT[facility] Social History Tobacco [...] drink first t manav in the morning (EYE-PARTS COUNTER REPRESENTATIVE) to steady your nerves or to [...] Upcoming Encounters Date Type Department Care Team ([facility] st Contact Info) Description 01/13/2025 9:30 AM EDT Clinical Support [facility] Hematology/BMT and Cellular Therapy Program [address] [place] [phone] 01/13/2025 10:00 AM EDT Office Visit [facility] Hematology/BMT and Cellular Therapy Program [address] [phone] Isaura Wynn, MOLD SHOP SUPERVISOR 800 [facility] [address] [place] [phone] 01/13/2025 11:30 AM EDT Appointment [facility] [address] [place] [address] 01/14/2025 2:00 PM EDT Appointment [facility] [address] [place] [address] 01/15/2025 2:00 PM EDT Appointment [facility] [address] [place] [address] 01/16/2025 2:00 PM EDT Appointment [facility] [address] [place] [address] 01/17/2025 2:00 PM EDT Appointment [facility] [address] [place] [address] 01/18/2025 2:00 PM EDT Appointment [facility] [address] [place] [address] 01/19/2025 2:00 PM EDT Appointment [facility] [address] [place] [address] 03/10/2025 11:20 AM EDT Office Visit [facility] Head[facility] Neck [facility] Respiratory 800 [facility], [address] [place] [address] Elsa Razo, MOLD SHOP SUPERVISOR [address] [place] [address] documented as of this encounter Visit Diagnoses [...] documented as of this encounter Care Teams Monkey Trainer Relationship Specialty Start Date End Date Zhao Harris MD [facility] [address] [address] PCP - General 12/03/20 documented as of this encounter
--- OUTSIDE RECORDS SUMMARY | 2024-11-10 14:00 | XMS_ITS | Encounter Summary ---
Author Organization [facility] Address [address] [place] [address] Care Team Providers Care Debridging Machine Operator Name Role Phone Zhao Harris MD Primary Care Provider [phone] Reason for Visit * Reason Comments Procedure * Genetic Testing (Routine) - Authorized Specialty Diagnoses / Procedures Referred By Justice mcgee Referred To Contact Lab Diagnoses Myelodysplasia (myelodysplastic syndrome) (CMS/HCC) Procedures Cytogenetics Testing, Oncology Virgen Vargas MD [address] [facility] [address] [place] [phone] Phone: tel: fax: Referral ID Status Reason Start Date Expiration Date V isits Requested Visits Authorized [id number] Authorized 10/16/2024 04/17/2026 1 1 Encounter Details Date Type Department Care Team (Latest Contact Info) Description 11/10/2024 2:00 PM EDT Procedure Visit [facility] Hematology/BMT and Cellular Therapy Program [address] [place] [address] Elaina Boss PA [address] [facility] [address] [place] [phone] Myelodysplasia (myelodysplastic syndrome) (CMS/HCC) (Primary Dx) [...] drink first t manav in the morning (EYE-HOG GRADER) to 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 There were no complications. ARAM Davidson [facility] CC HEMATOLOGY/BMT AND CELLULAR THERAPY PROGRAM 800 [facility] [phone] / documented in this encounter Plan of Treatment Upcoming Encounters Date Type Department Care Team ([facility] st Contact Info) Description 01/13/2025 9:30 AM EDT Clinical Support [facility] Hematology/BMT and Cellular Therapy Program 750 [facility], [address] [place] [address] [place] [address] 01/13/2025 10:00 AM EDT Office Visit [facility] Hematology/BMT and Cellular Therapy Program 750 [facility], [address] [place] [address] [place] [address] Isaura Wynn, CMM TECHNICIAN 800 [facility] [address] [place] [phone] 01/13/2025 11:30 AM EDT Appointment [facility] [address] [place] [address] 01/14/2025 2:00 PM EDT Appointment [facility] [address] [place] [address] 01/15/2025 2:00 PM EDT Appointment [facility] [address] [place] [address] 01/16/2025 2:00 PM EDT Appointment [facility] [address] [place] [address] 01/17/2025 2:00 PM EDT Appointment [facility] [address] [place] [address] 01/18/2025 2:00 PM EDT Appointment [facility] [address] [place] [address] 01/19/2025 2:00 PM EDT Appointment [facility] [address] [place] [address] 03/10/2025 11:20 AM EDT Office Visit [facility] Head, Neck & Respiratory 800 [facility], 2nd [place] [address] Elsa Razo, CMM TECHNICIAN [address] [place] [phone] Scheduled Orders Name Type Priority Associated Diagnoses [...] Bone Marrow 11/19/2024 5:[address] [facility] Clinical Indication Acute Myeloid Leukemia 11/19/2024 5:[address] [facility] Chromosome Analysis Result Giemsa-banded metaphase cells from unstimulated bone marrow cultures showed the following chromosome pattern: 43~46,X,-Y,t(4;14 )(q21;q32),add(5) (q13),add(16)(q11 .2),-17,add(20)(q 11.2),+mar[cp14]/ 46,XY[6] 11/19/2024 5:[address] [facility] Interpretation Abnormal male chromosome analysis. 70% [...] correlation is recommended. Note: Per [employer] (CAP) requirement additional karyotypes were performed and charged due to the presence of clonal abnormalities. # cells counted = 20 # cells analyzed = 20 # cells karyotyped = 4 Band resolution: 400-450 11/19/2024 5:03 PM EDT [facility] Pathologist Signature Reviewed by: Mesfin Rae 11/19/2024 5:03 PM EDT [facility] Bone Marrow Non-blood Collection / Unknown 11/10/2024 2:30 PM EDT 11/10/2024 3:39 PM EDT us Virgen Vargas MD LAB CYTOGENETICS ORDERABLES F inal Result [facility] [address] [phone] * Leukemia/Lymphoma - Immunophenotyping by Flow Cytometry (11/10/2024 2:30 PM EDT) Clinical Indication AML 11/11/2024 10:[address] [facility] Flow Cytometry Interpretation A. BONE MARROW FOR FLOW CYTOMETRY: - ACUTE MYELOID LEUKEMIA (APPROXIMATELY 40-50% BLASTS EXPRESSING CD117, VARIABLE CD34, CD13, CD33, PARTIAL CD15, DIM CD4, PARTIAL CD7, DIM CD123, PARTIAL CD 38, AND VARIABLE CD45), SEE COMMENT. 11/11/2024 10:[address] [facility] Comments CD45/side scatter analysis shows an [...] lambda surface light chains 11/11/2024 10:49 AM EDT [facility] Disclaimer This test was developed and its performance characteristics determined by the Immuno-Molecular Pathology Laboratory at the [facility]. It has not been cleared or approved [...] appears on the report. 11/11/2024 10:[address] [facility] Pathologist Signature Reviewed by: Martha Lopez MD 11/11/2024 10:[address] [facility] MRD Indicated Test Not Indicated 10:[address] [facility] Bone Marrow Specimen from bone marrow obtained by aspiration / Unknown Non-blood Collection / Unknown 11/10/2024 2:30 PM EDT 11/10/2024 3:28 PM EDT us Virgen Vargas MD LAB FLOW CYTOMETRY ORDERABLES Final Result [facility] [address] [place] [address] * Bone marrow exam (11/10/2024 2:30 PM EDT) Case Report Bone Marrow Case: [id number] Authorizing Provider: Virgen Vargas MD Collected: 11/10/2024 1430 Ordering Location: [facility] Hematology/BMT and Received: 11/10/2024 [facility] Pathologist: Martha Lopez MD Specimens: A) - Bone Marrow Aspirate, left B) - Bone Marrow Biopsy, left C) - Peripheral Blood for Bone Marrow 10:[address] [facility] Cytogenetics Report, Addendum Chromosome Analysis Result [...] correlation is recommended. 10:[address] [facility] Addendum electronically signed by Martha Lopez MD on 11/20/2024 at 1039 EDT Final Diagnosis A. PERIPHERAL BLOOD AND BONE MARROW, LEFT POSTERIOR ILIAC CREST, (PERIPHERAL SMEAR, ASPIRATE SMEAR, AND CORE BIOPSY): - ACUTE MYELOID LEUKEMIA (35% BLASTS IN HYPERCELLULAR BONE MARROW WITH ASSOCIATED DYSPOIESIS), SEE COMMENT. 10:[address] 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 10:[address] [facility] Clinical Information AmL 10:[address] [facility] CBC and Differential PERIPHERAL BLOOD: 11/10/2024: [...] Rare circulating blasts are seen. 10:[address] [facility] Bone Marrow Differential BONE MARROW DIFFERENTIAL: 200 cells Normal Patient Neutrophils 15-50 5 Metamyelocytes 4-19 2 Myelocytes 1-18 1 Promyelocytes 1-8 2 Blasts 0-2 35 Monocytes 0-5 1 Erythroid 16-38 49 Lymphocytes 3-24 4 Eosinophils 0-6 0 Basophils 0-2 0 Plasma cells 0-4 1 Other 10:[address] [facility] Bone Marrow Aspirate and Biopsy The bone [...] identified. Bone trabeculae are unremarkable. 10:39 AM T [facility] Special and Immunohistochemical Stains Special Stain: A1-1 Christine-Giemsa A1-2 Christine-Giemsa A1-3 Christine-Giemsa A1-4 Iron C1-1 Christine-Giemsa IHC: There are no tasks to display for the given criteria. All controls show appropriate reactivity. All immunohistochemis try, in situ hybridization, and histochemical tests were developed by and are performed at the [facility], [address] [place] [address]. All tests reported here, except those addressing [...] false negativity on decalcified specimens. 10:39 AM [facility] Flow Cytometry Interpretation A. BONE MARROW FOR FLOW CYTOMETRY: - ACUTE MYELOID LEUKEMIA (APPROXIMATELY 40-50% BLASTS EXPRESSING CD117, VARIABLE CD34, CD13, CD33, PARTIAL CD15, DIM CD4, PARTIAL CD7, DIM CD123, PARTIAL CD 38, AND VARIABLE CD45), SEE COMMENT. 10:39 AM [facility] CYTOGENETICS/MOLECULA R INTERPRETATION Correlation with cytogenetic/molec ular analysis is suggested. 10:39 AM [facility] Gross Description B. LEFT A single specimen is received in formalin labeled bone marrow biopsy left posterior iliac crest and consists of 1 piece(s) of red/white tissue measuring 1.5 cm in length 0.2 cm in diameter. The specimen is submitted in to Histology for decalcification and routine processing. Cold Time: <1m 10:[address] [facility] Note: A resident was involved in the service. I attest I examined the relevant preparations for the specimens and confirmed the diagnosis or interpretation. 10:[address] [facility] Bone Marrow Peripheral blood specimen / Unknown Non-blood Collection / Unknown 11/10/2024 2:30 PM EDT 11/10/2024 3:21 PM EDT Bone marrow specimen (specimen) Specimen from bone marrow obtained by biopsy / Unknown 11/10/2024 2:30 PM EDT 11/10/2024 3:21 PM EDT Bone marrow specimen (specimen) Peripheral blood specimen / Unknown 11/10/2024 2:30 PM EDT 11/10/2024 3:21 PM EDT us Virgen Vargas MD LAB PATHOLOGY ORDERABLES Edit ed Result - Final Performing Organization Address City/State/[facility] Co de Phone Number [facility] [address] [place] [address] * BIOPSY BONE MARROW (11/10/2024 2:00 PM EDT) Narrative Elaina Boss PA - 11/10/2024 2:00 PM EDT Elaina Boss PA 11/10/2024 3:36 PM Biopsy bone marrow Performed by: Elaina Boss PA Authorized by: Elaina Boss PA us Elaina CHIU IN CLINIC/BEDSIDE ORDERABLE S Final Result * (ABNORMAL) Comprehensive metabolic panel (11/10/2024 1:39 PM EDT) Glucose, Plasma 98 74 - 99 mg/dL 11/10/2024 2:[address] [facility] BUN, Plasma 10 8 - 23 mg/dL 11/10/2024 2:[address] [facility] Creatinine, Plasma 0.95 0.70 - 1.20 mg/dL 11/10/2024 2:[address] [facility] BUN/Creatinine Ratio 11 11/10/2024 2:[address] [facility] Sodium, Plasma 140 136 - 145 mmol/L 11/10/2024 2:[address] [facility] Potassium, Plasma 4.0 3.6 - 4.9 mmol/L 11/10/2024 2:[address] [facility] Chloride, Plasma 108(H) 97 - 107 mmol/L 11/10/2024 2:[address] [facility] CO2, Plasma 20(L) 22 - 29 mmol/L 11/10/2024 2:[address] [facility] Anion Gap 12 6 - 16 mmol/L 11/10/2024 2:[address] [facility] Total Calcium, Plasma 9.2 8.9 - 10.2 mg/dL 11/10/2024 2:[address] [facility] Total Protein 6.9 6.3 - 7.9 g/dL 11/10/2024 2:[address] [facility] Albumin, Plasma 3.8 3.5 - 5.2 g/dL 11/10/2024 2:[address] [facility] AST, Plasma 35 10 - 50 U/L 11/10/2024 2:[address] [facility] ALT, Plasma 42 10 - 50 U/L 11/10/2024 2:[address] [facility] Alkaline Phosphatase, Plasma 66 40 - 115 U/L 11/10/2024 2:[address] [facility] Total Bilirubin, Plasma 0.6 0.2 - 1.1 mg/dL 11/10/2024 2:[address] [facility] eGFRcr 86.6 mL/min/1.7 3m*2 11/10/2024 2:[address] [facility] Comment:Reported eGFRcr in m L/min/1.73m2 is based the CKD-EPI 2020 equation that does not use a race coefficient. Blood Venous blood specimen / Unknown Venipuncture / Unknown 11/10/2024 1:39 PM EDT 11/10/2024 2:07 PM EDT us Virgen Vargas MD LAB BLOOD ORDERABLES Final Re sult [facility] [address] [place] [address] * (ABNORMAL) CBC and differential (11/10/2024 1:39 PM EDT) WBC Count 0.97(LL) 3.70 - 10.30 10*3/uL LAB HEMATOLOGY METHOD 11/10/2024 2:24 PM EDT [facility] RBC Count 2.08(L) 4.60 - 6.10 10*6/uL LAB HEMATOLOGY METHOD 11/10/2024 2:24 PM EDT [facility] HGB 7.3(L) 13.7 - 17.5 g/dL LAB HEMATOLOGY METHOD 11/10/2024 2:24 PM EDT [facility] HCT 20.3(L) 40.0 - 51.0 % LAB HEMATOLOGY METHOD 11/10/2024 2:24 PM EDT [facility] Platelet Count 6(LL) 155 - 369 10*3/uL LAB HEMATOLOGY METHOD 11/10/2024 2:24 PM EDT [facility] Comment:Consistent with prio r results MCV 98 79 - 98 fL LAB HEMATOLOGY METHOD 11/10/2024 2:24 PM EDT [facility] Comment:Results inconsistent with previous lab findings. MCH 35.1(H) 26.0 - 32.0 pg LAB HEMATOLOGY METHOD 11/10/2024 2:24 PM EDT [facility] MCHC 36.0(H) 30.7 - 35.5 g/dL LAB HEMATOLOGY METHOD 11/10/2024 2:24 PM EDT [facility] RDW 19.9(H) 11.5 - 14.5 % LAB HEMATOLOGY METHOD 11/10/2024 2:24 PM EDT [facility] MPV LAB HEMATOLOGY METHOD 11/10/2024 2:24 PM EDT [facility] Comment:Not Measured nRBC 0.0 <=0.0 per 100 WBCs LAB HEMATOLOGY METHOD 11/10/2024 2:24 PM EDT [facility] Differential Type Automated LAB HEMATOLOGY METHOD 11/10/2024 2:24 PM EDT [facility] Neutrophils % 20 % LAB HEMATOLOGY METHOD 11/10/2024 2:24 PM EDT [facility] Lymphocytes % 76 % LAB HEMATOLOGY METHOD 11/10/2024 2:24 PM EDT [facility] Monocytes % 4 % LAB HEMATOLOGY METHOD 11/10/2024 2:24 PM EDT [facility] Eosinophils % 0 % LAB HEMATOLOGY METHOD 11/10/2024 2:24 PM EDT [facility] Basophils % 0 % LAB HEMATOLOGY METHOD 11/10/2024 2:24 PM EDT [facility] Immature Granulocytes % 0 % LAB HEMATOLOGY METHOD 11/10/2024 2:24 PM EDT [facility] Neutrophils Absolute 0.19(LL) 1.60 - 6.10 10*3/uL LAB HEMATOLOGY METHOD 11/10/2024 2:24 PM EDT [facility] Lymphocytes Absolute 0.74(L) 1.20 - 3.90 10*3/uL LAB HEMATOLOGY METHOD 11/10/2024 2:24 PM EDT [facility] Monocytes Absolute 0.04(L) 0.30 - 0.90 10*3/uL LAB HEMATOLOGY METHOD 11/10/2024 2:24 PM EDT [facility] Eosinophils Absolute 0.00 0.00 - 0.50 10*3/uL LAB HEMATOLOGY METHOD 11/10/2024 2:24 PM EDT [facility] Basophils Absolute 0.00 0.00 - 0.10 10*3/uL LAB HEMATOLOGY METHOD 11/10/2024 2:24 PM EDT [facility] Immature Granulocytes Absolute 0.00 0.00 - 0.06 10*3/uL LAB HEMATOLOGY METHOD 11/10/2024 2:24 PM EDT [facility] Blood Venous blood specimen / Unknown Venipuncture / Unknown 11/10/2024 1:39 PM EDT 11/10/2024 1:49 PM EDT Narrative [facility] - 11/10/2024 2:24 PM EDT Therapeutic decision making should be based on absolute values, rather than percentages. us Virgen Vargas MD LAB BLOOD ORDERABLES Final Re sult [facility] [address] [place] [address] documented in this encounter Visit Diagnoses Diagnosis [...] documented as of this encounter Care Teams Debridging Machine Operator Relationship Specialty Start Date End Date Zhao Harris MD [address] [place] [address] PCP - General 12/03/20 documented as of this encounter
--- OUTSIDE RECORDS SUMMARY | 2024-11-10 15:00 | XMS_ITS | Encounter Summary ---
Author Organization [facility] Address [address] [place] [address] Care Team Providers Care Resizer Operator Name Role Phone Zhao Harris MD Primary Care Provider [phone] Encounter Details Date Type Department Care Team (Latest Contact Info) Description 11/10/2024 3:00 PM EDT - 11/10/2024 11:59 PM EDT Hospital Encounter [facility] [address] [place] [address] Myelodysplasia (myelodysplastic syndrome) (CMS/HCC) (Primary Dx); Thrombocytopenia [...] drink first t manav in the morning (EYE-AIR COMPRESSOR OPERATOR) to steady your nerves or to [...] 5 MG tabletIndications :Coronary artery disease involving jena heart with angina pectoris, unspecified vessel or lesion type (CMS/HCC),Hyperte nsion, unspecified type Take 1 tablet (5 mg) by mouth daily. 90 tablet 3 09/11/2024 HYDROcodone-aceta minophen ([place]) 5-325 MG tablet Take 1 tablet by mouth every 6 hours as needed. 11/07/2024 levoFLOXacin (Levaquin) 500 MG tabletIndications :Myelodysplasia (myelodysplastic [...] needed for constipation. 30 tablet 3 10/23/2024 nitroglycerin (Nitrostat) 0.4 MG SL tabletIndications :Coronary artery disease involving jena heart with angina pectoris, unspecified vessel or [...] 2.5 MG tabletIndications :Coronary artery disease involving jena heart with angina pectoris, unspecified vessel or [...] Care Team (Late st Contact Info) Description 01/13/2025 9:30 AM EDT Clinical Support [facility] Hematology/BMT and Cellular Therapy Program 750 [facility], [address] [place] [phone] 01/13/2025 10:00 AM EDT Office Visit [facility] Hematology/BMT and Cellular Therapy Program 750 [facility], [address] [place] [phone] Isaura Wynn, IT WEB DEVELOPMENT CONSULTANT 800 [facility] [address] [place] [phone] 01/13/2025 11:30 AM EDT Appointment [facility] [address] [place] [address] 01/14/2025 2:00 PM EDT Appointment [facility] [address] [place] [address] 01/15/2025 2:00 PM EDT Appointment [facility] [address] [place] [address] 01/16/2025 2:00 PM EDT Appointment [facility] [address] [place] [address] 01/17/2025 2:00 PM EDT Appointment [facility] [address] [place] [address] 01/18/2025 2:00 PM EDT Appointment [facility] [address] [place] [address] 01/19/2025 2:00 PM EDT Appointment [facility] [address] [place] [address] 03/10/2025 11:20 AM EDT Office Visit [facility] Head, Neck & Respiratory 800 [facility], [address] [place] [address] Elsa Razo, IT WEB DEVELOPMENT CONSULTANT [address] [place] [phone] documented as of this encounter Procedures Procedure [...] (ABNORMAL) Platelet count (11/10/2024 4:54 PM EDT) Pathologist [facility] Platelet Count 34(L) 155 - 369 10*3/uL LAB HEMATOLOGY METHOD 11/10/2024 5:37 PM EDT [facility] Blood Venous blood specimen / Unknown Venipuncture / Unknown 11/10/2024 4:54 PM EDT 11/10/2024 5:22 PM EDT us Virgen Vargas MD LAB BLOOD ORDERABLES Final Re sult Performing Organization Address City/[facility]/ZIP Co de Phone Number [facility] [address] [place] [address] * Prepare Leukocyte Reduced Platelets: 1 Units (11/10/2024 3:32 PM EDT) Product Code [id number] CH BLOO D BANK Dispense Status Transfused BLOOD BANK Blood Expiration Date [id number] BLOOD BANK Unit Number [id number] CH B LOOD BANK Product Blood Type 2800 BLOOD BANK Blood Type AB- CH BLOOD BANK Blood Venous blood specimen / Unknown us Kayli CHIU BLOOD BANK PRODUCT ORDER VIKAS Final Result Performing Organization Address City/[facility] Co de Phone Number BLOOD BANK [address] [place] [address], [place] documented in this encounter Visit Diagnoses Diagnosis [...] documented as of this encounter Care Teams Resizer Operator Relationship Specialty Start Date End Date Zhao Harris MD 1210 [facility] [address] [place] [address] PCP - General 12/03/20 documented as of this encounter
--- OUTSIDE RECORDS SUMMARY | 2024-11-18 10:30 | XMS_ITS | Encounter Summary ---
Author Organization [facility] Address [address] [place] [address] Care Team Providers Care Belt Picker Name Role Phone Zhao Harris MD Primary Care Provider [phone] Reason for Visit * Reason Comments Nurse Visit Labs Encounter Details Date Type Department Care Team ([facility] Contact Info) Description 11/18/2024 10:30 AM EDT Clinical Support [facility] Hematology/BMT and Cellular Therapy Program [address] [place] [address] [place] [address] Social History Tobacco Use Types Packs/Day Years [...] drink first t manav in the morning (EYE-CARD PUNCHER) to steady your nerves or to get [...] CC Hematology/BMT and Cellular Therapy Program [address] [phone] 01/13/2025 10:00 AM EDT Office Visit [facility] Hematology/BMT and Cellular Therapy Program [address] [phone] Isaura Wynn, SOFTWARE CONFIGURATION MANAGER 800 [facility] [address] [place] [phone] 01/13/2025 11:30 AM EDT Appointment [facility] Infusion [address] [place] [address] 01/14/2025 2:00 PM EDT Appointment [facility] [address] [place] [address] 01/15/2025 2:00 PM EDT Appointment [facility] [address] [place] [address] 01/16/2025 2:00 PM EDT Appointment [facility] [address] [place] [address] 01/17/2025 2:00 PM EDT Appointment [facility] [address] [place] [address] 01/18/2025 2:00 PM EDT Appointment [facility]fusion [address] [place] [address] 01/19/2025 2:00 PM EDT Appointment [facility]fusion [address] [place] [address] 03/10/2025 11:20 AM EDT Office Visit Pav CC Head, Neck & Respiratory 800 [facility], [address] [place] [address] Elsa Razo, SOFTWARE CONFIGURATION MANAGER [address] [place] [address] documented as of this encounter Visit Diagnoses [...] documented as of this encounter Care Teams Belt Picker Relationship Specialty Start Date End Date Zhao Harris MD [address] [place] [address] PCP - General 12/03/20 documented as of this encounter
--- OUTSIDE RECORDS SUMMARY | 2024-11-18 11:00 | XMS_ITS | Encounter Summary ---
Author Organization [facility] Address [address] [place] [address] Care Team Providers Care Leach Tank Tender Name Role Phone Zhao Harris MD Primary Care Provider [phone] Reason for Referral * Imaging (Routine) - Closed Specialty Diagnoses / Procedures Referred By Jusitce mcgee Referred To Contact Radiology Diagnoses Myelodysplasia (myelodysplastic syndrome) (CMS/HCC) Procedures IR Port Placement 5+ Years Consult to Interventional Radiology Isaura Wynn APRN 800 [facility] [address] [address] Phone: tel: fax: Referral ID Status Reason Start Date Expiration Date Visits Re quested Visits Authorized [id number] Closed 11/18/2024 05/20/2026 1 1 * Genetic Testing (Routine) - Closed Specialty Diagnoses / Procedures Referred By Justice mcgee Referred To Contact Lab Diagnoses Myelodysplasia (myelodysplastic syndrome) (CMS/HCC) Procedures Cytogenetics Testing, Oncology Virgen Vargas MD [address] [address] Phone: tel: fax: Referral ID Status Reason Start Date Expiration Date Visits Re quested Visits Authorized [id number] Closed 11/18/2024 05/20/2026 1 1 * Genetic Testing (Routine) - Authorized Specialty Diagnoses / Procedures Referred By Justice mcgee Referred To Contact Lab Diagnoses Myelodysplasia (myelodysplastic syndrome) (CMS/HCC) Procedures Leukemia/Lymphoma - Immunophenotyping by Flow Cytometry Virgen Vargas MD [address] [address] Phone: tel: fax: Referral ID Status Reason Start Date Expiration Date V isits Requested Visits Authorized [id number] Authorized 11/18/2024 05/20/2026 1 1 * Genetic Testing (Routine) - Authorized Specialty Diagnoses / Procedures Referred By Justice mcgee Referred To Contact Lab Diagnoses Myelodysplasia (myelodysplastic syndrome) (CMS/HCC) Procedures Bone marrow exam Virgen Vargas MD [address] [address] Phone: tel: fax: Referral ID Status Reason Start Date Expiration Date V isits Requested Visits Authorized [id number] Authorized 11/18/2024 05/20/2026 1 1 Encounter Details Date Type Department Care Team (Latest Contact Info) Description 11/18/2024 11:00 AM EDT Office Visit [facility] Hematology/BMT and Cellular Therapy Program [address] [place] [address] Isaura Wynn, ESTRELLA [address] [address] Myelodysplasia (myelodysplastic syndrome) (CMS/HCC) (Primary [...] drink first t manav in the morning (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 Polyclonal B-cells (3%) and a [...] counts (WBC 2.3 k/??L, hemoglobin 11.6 g/dL, [id number] k/??L) prompted a bone marrow biopsy on [...] ESTRELLA Claire HEMATOLOGY/BMT AND CELLULAR THERAPY PROGRAM [address] [place] [phone] [1] Current Outpatient Medications: acyclovir (Zovirax) 800 [...] daily., Disp: 90 tablet, Rfl: 3 HYDROcodone-acetaminophen ([place]) 5-325 MG tablet, Take 1 tablet by [...] History: N/A Plan: Venetoclax rx sent to [facility]. Refills due monthly. Patient will return to clinic in 4 weeks. Will follow-up at that time. documented in this encounter Plan of Treatment Upcoming Encounters Date Type Department Care Team ([facility] Contact Info) Description 01/13/2025 9:30 AM EDT Clinical Support [facility] Hematology/BMT and Cellular Therapy Program [address] [address] 01/13/2025 10:00 AM EDT Office Visit [facility] Hematology/BMT and Cellular Therapy Program [address] [phone] Isaura Wynn, ESTRELLA 800 [facility] [address] [place] [address] 01/13/2025 11:30 AM EDT Appointment [facility] H Infusion [address] [place] [address] 01/14/2025 2:00 PM EDT Appointment [facility] Infusion [address] [place] [address] 01/15/2025 2:00 PM EDT Appointment [facility] Infusion [address] [place] [address] 01/16/2025 2:00 PM EDT Appointment [facility] Infusion [address] [place] [address] 01/17/2025 2:00 PM EDT Appointment [facility] Infusion [address] [place] [address] 01/18/2025 2:00 PM EDT Appointment [facility] Infusion [address] [place] [address] 01/19/2025 2:00 PM EDT Appointment [facility] Infusion [address] [place] [address] 03/10/2025 11:20 AM EDT Office Visit Pav CC Head, Neck & Respiratory 800 [facility], [address]nd [place] [address] Elsa Razo, FIELD SALES EXECUTIVE [address] [place] [address] documented as of this encounter Procedures Procedure [...] CBC and differential (12/11/2024 8:38 AM EDT) WBC Count 0.61(LL) 3.70 - 10.30 10*uL LAB HEMATOLOGY METHOD 12/11/2024 10:54 AM EDT [facility] RBC Count 2.80(L) 4.60 - 6.10 10*6/uL LAB HEMATOLOGY METHOD 12/11/2024 10:54 AM EDT [facility] HGB 8.9(L) 13.7 - 17.5 g/dL LAB HEMATOLOGY METHOD 12/11/2024 10:54 AM EDT [facility] HCT 25.1(L) 40.0 - 51.0 % LAB HEMATOLOGY METHOD 12/11/2024 10:54 AM EDT [facility] Platelet Count 11(LL) 155 - 369 10*3/uL LAB HEMATOLOGY METHOD 12/11/2024 10:54 AM EDT [facility] MCV 90 79 - 98 fL LAB HEMATOLOGY METHOD 12/11/2024 10:54 AM EDT [facility] MCH 31.8 26.0 - 32.0 pg LAB HEMATOLOGY METHOD 12/11/2024 10:[facility] MCHC 35.5 30.7 - 35.5 g/dL LAB HEMATOLOGY METHOD 12/11/2024 10:54 [facility] RDW 16.2(H) 11.5 - 14.5 % LAB HEMATOLOGY METHOD 12/11/2024 10:54 [facility] MPV 12.3 8.8 - 12.5 fL LAB HEMATOLOGY METHOD 12/11/2024 10:54 AM [facility] nRBC 4.9(H) <=0.0 per 100 WBCs LAB HEMATOLOGY METHOD 12/11/2024 10:54 AM [facility] Differential Type Manual LAB HEMATOLOGY METHOD 12/11/2024 10:54 AM [facility] Blood Venous blood specimen / Unknown Venipuncture / Unknown 12/11/2024 8:38 AM EDT 12/11/2024 8:50 AM EDT [facility] - 12/11/2024 10:54 AM EDT Therapeutic [...] MD LAB BLOOD ORDERABLES Final Re sult [facility] [address] [place] [address] * Leukemia/Lymphoma - Immunophenotyping by Flow Cytometry (12/09/2024 10:15 AM EDT) Clinical Indication AML 12/10/2024 8:51 AM EDT [facility] Flow Cytometry Interpretation APPROXIMATELY 23% POPULATION OF CD34 POSITIVE MYELOID BLASTS EXPRESSING CD34, CD117, CD13, CD33, HLA-DR, PARTIAL CD7, VARIABLE CD123, PARTIAL CD38, AND MODERATE CD45, SEE COMMENT, BONE MARROW ASPIRATE. 12/10/2024 8:51 AM EDT [facility] Comments Specimen viability is 86.0%. Flow [...] light chains, CD123 12/10/2024 8:51 AM EDT [facility] Disclaimer This test was developed and its performance characteristics determined by the Immuno-Molecular Pathology Laboratory at the [facility]. It has not been cleared [...] on the report. 12/10/2024 8:51 AM EDT [facility] Pathologist Signature Reviewed by: Gerry Jensen MD 12/10/2024 8:51 AM EDT [facility] MRD Indicated Test Not Indicated 8:51 AM EDT [facility] Bone Marrow Specimen from bone marrow obtained by aspiration / Unknown Non-blood Collection / Unknown 12/09/2024 10:15 AM EDT 12/09/2024 11:28 AM EDT us Virgen Vargas MD LAB FLOW CYTOMETRY ORDERABLES Final Result [facility] [address] [place] [address] * Bone marrow exam (12/09/2024 10:15 AM EDT) Case Report Bone Marrow Case: [id number] Authorizing Provider: Virgen Vargas MD Collected: 12/09/2024 1015 Ordering Location: [facility] Hematology/BMT and Received: 12/09/2024 1145 Cellular Therapy Program Pathologist: Gerry Jensen MD Specimens: A) - Bone Marrow Aspirate, right B) - Bone Marrow Biopsy, right C) - Peripheral Blood for Bone Marrow 12/19/2024 5:35 PM EDT [facility] Cytogenetics Report, Addendum Chromosome Analysis Result: Giemsa-banded [...] were observed on this patient's previous specimen [id number] and indicate persistent disease. 12/19/2024 5:35 PM EDT [facility] Addendum electronically signed by Gerry Jensen MD on 12/19/2024 at 1735 EDT Final Diagnosis PERIPHERAL BLOOD AND BONE MARROW, RIGHT POSTERIOR ILIAC CREST, (PERIPHERAL SMEAR, ASPIRATE SMEAR, AND CORE BIOPSY): - NORMOCELLULAR BONE MARROW WITH ERYTHROID HYPERPLASIA, VIRTUALLY ABSENT MATURING GRANULOPOIESIS, AND 14% BLASTS, SEE COMMENT. 12/19/2024 5:35 PM EDT [facility] at 1706 EDT Comment While by flow cytometric analysis blasts constitute 23% of cellularity, the majority of bone marrow cellularity consists of erythroid precursors that are removed by flow cytometry. This leads to the discrepancy between the percentage of blasts by flow cytometry and morphologic examination. Nonetheless, the findings are consistent with some residual disease. 12/19/2024 5:35 PM EDT [facility] Clinical Information AML s/p cycle 2 12/19/2024 5:35 PM EDT [facility] CBC and Differential PERIPHERAL BLOOD: 12/09/2024: [...] Platelets are decreased. 12/19/2024 5:35 PM EDT [facility] Bone Marrow Differential BONE MARROW DIFFERENTIAL: 400 cells Normal Patient Neutrophils 15-50 0 Metamyelocytes 4-19 0 Myelocytes 1-18 1 Promyelocytes 1-8 0 Blasts 0-2 14 Monocytes 0-5 3 Erythroid 16-38 76 Lymphocytes 3-24 1 Eosinophils 0-6 0 Basophils 0-2 0 Plasma cells 0-4 5 Other 12/19/2024 5:35 PM EDT [facility] Aspirate Smear The bone marrow aspirate [...] show predominantly normal morphology. 12/19/2024 5:35 PM EDT [facility] Core Biopsy The core biopsy is small and shows 5 mm of a normocellular bone marrow with a cellularity of approximately 30% that is predominantly comprised of erythroid precursors. Erythropoiesis is left-shifted, but maturing. Maturing granulopoiesis is virtually absent. Myeloid cells almost entirely consists of immature precursors. Megakaryocytes are decreased and exhibit predominantly normal morphology. 12/19/2024 5:35 PM EDT [facility] Flow Cytometry Interpretation Flow cytometric analysis shows approximately 23% population of CD34 positive myeloid blasts expressing CD34, CD117, CD13, CD33, HLA-DR, partial CD7, variable CD123, partial CD38, and moderate CD45 ([id number]). 12/19/2024 5:35 PM EDT [facility] Gross Description B. RIGHT A single specimen is received in formalin labeled bone marrow biopsy right posterior iliac crest and consists of 1 piece(s) of red/white tissue measuring 0.7 cm in length 0.2 cm in diameter. The specimen is submitted in to Histology for decalcification and routine processing. Cold Time: <1m 12/19/2024 5:35 PM EDT [facility] Note: A resident was involved in the service. I attest I examined the relevant preparations for the specimens and confirmed the diagnosis or interpretation. 12/19/2024 5:35 PM EDT [facility] Bone Marrow Peripheral blood specimen [...] PATHOLOGY ORDERABLES Edit ed Result - Final [facility] [address] [place] [address] * (ABNORMAL) Comprehensive metabolic panel (12/09/2024 8:45 AM EDT) Glucose, Plasma 103(H) 74 - 99 mg/dL 12/09/2024 9:33 AM EDT [facility] BUN, Plasma 9 8 - 23 mg/dL 12/09/2024 9:33 AM EDT [facility] Creatinine, Plasma 0.78 0.70 - 1.20 mg/dL 12/09/2024 9:33 AM EDT [facility] BUN/Creatinine Ratio 12 12/09/2024 9:33 AM EDT [facility] Sodium, Plasma 140 136 - 145 mmol/L 12/09/2024 9:33 AM EDT [facility] Potassium, Plasma 3.9 3.6 - 4.9 mmol/L 12/09/2024 9:33 AM EDT [facility] Chloride, Plasma 109(H) 97 - 107 mmol/L 12/09/2024 9:33 AM EDT [facility] CO2, Plasma 21(L) 22 - 29 mmol/L 12/09/2024 9:33 AM EDT [facility] Anion Gap 10 6 - 16 mmol/L 12/09/2024 9:33 AM EDT [facility] Total Calcium, Plasma 9.0 8.9 - 10.2 mg/dL 12/09/2024 9:33 AM EDT [facility] Total Protein 6.6 6.3 - 7.9 g/dL 12/09/2024 9:33 AM EDT [facility] Albumin, Plasma 3.9 3.5 - 5.2 g/dL 12/09/2024 9:33 AM EDT [facility] AST, Plasma 31 10 - 50 U/L 12/09/2024 9:33 AM EDT [facility] ALT, Plasma 37 10 - 50 U/L 12/09/2024 9:33 AM EDT [facility] Alkaline Phosphatase, Plasma 81 40 - 115 U/L 12/09/2024 9:33 AM EDT [facility] Total Bilirubin, Plasma 0.6 0.2 - 1.1 mg/dL 12/09/2024 9:33 AM EDT [facility] eGFRcr 96.5 mL/min/1.7 3m*2 12/09/2024 9:33 AM EDT [facility] Comment:Reported eGFRcr in m L/min/1.73m2 is based the CKD-EPI 2020 equation that does not use a race coefficient. Blood Venous blood specimen / Unknown Venipuncture / Unknown 12/09/2024 8:45 AM EDT 12/09/2024 9:01 AM EDT us Virgen Vargas MD LAB BLOOD ORDERABLES Final Re sult [facility] [address] [place] [address] * (ABNORMAL) CBC and differential (12/09/2024 8:45 AM EDT) WBC Count 0.68(LL) 3.70 - 10.30 10*3/uL LAB HEMATOLOGY METHOD 12/09/2024 11:45 AM EDT [facility] RBC Count 2.34(L) 4.60 - 6.10 10*6/uL LAB HEMATOLOGY METHOD 12/09/2024 11:45 AM EDT [facility] HGB 7.5(L) 13.7 - 17.5 g/dL LAB HEMATOLOGY METHOD 12/09/2024 11:45 AM EDT [facility] HCT 20.6(L) 40.0 - 51.0 % LAB HEMATOLOGY METHOD 12/09/2024 11:45 AM EDT [facility] Platelet Count 24(L) 155 - 369 10*3/uL LAB HEMATOLOGY METHOD 12/09/2024 11:45 AM EDT [facility] MCV 88 79 - 98 fL LAB HEMATOLOGY METHOD 12/09/2024 11:45 AM EDT [facility] MCH 32.1(H) 26.0 - 32.0 pg LAB HEMATOLOGY METHOD 12/09/2024 11:45 AM EDT [facility] MCHC 36.4(H) 30.7 - 35.5 g/dL LAB HEMATOLOGY METHOD 12/09/2024 11:45 AM EDT [facility] RDW 17.1(H) 11.5 - 14.5 % LAB HEMATOLOGY METHOD 12/09/2024 11:45 AM EDT [facility] MPV 9.2 8.8 - 12.5 fL LAB HEMATOLOGY METHOD 12/09/2024 11:45 AM EDT [facility] nRBC 2.9(H) <=0.0 per 100 WBCs LAB HEMATOLOGY METHOD 12/09/2024 11:45 AM EDT [facility] Differential Type Manual LAB HEMATOLOGY METHOD 12/09/2024 11:45 AM EDT [facility] Blood Venous blood specimen / Unknown [...] ORDERABLES Final Re sult [facility] [address] [place] [address] * IR Port Placement 5+ Years (12/01/2024 [...] for port placement. New AML, starting chemotherapy. Diamond Powder Technician: Mckinley Lee MD Secondary Cover Assembler: Dr. David Holt Rad Dose: 6 mGy [...] was placed supine on the fluoro table. Home Theater Expert ultrasonography revealed the vein to be compressible [...] with no evidence of complication. Device: 6 Sudanese port catheter cut to length of 25 cm. COMPARISON: None. FINDINGS: Patent R IJV COMPLICATION: No. Procedure Note Mckinley Lee MD - 12/02/2024 CLINICAL INDICATION: 69M here for port placement. New AML, starting chemotherapy. Diamond Powder Technician: Mckinley Lee MD Secondary Cover Assembler: Dr. David Holt Rad Dose: 6 mGy [...] patient was placed supine on the fluoro table.Home Theater Expert ultrasonography revealed the vein to be compressible [...] well with no evidence ofcomplication. Device: 6 Sudanese port catheter cut to length of 25 [...] Mckinley Lee MD on 12/02/2024 7:02 AM us Isaura Wynn FIELD SALES EXECUTIVE IMG IR PROCEDURES Final Result * (ABNORMAL) CBC and differential (11/20/2024 1:49 PM EDT) WBC Count 0.83(LL) 3.70 - 10.30 10*3/uL LAB HEMATOLOGY METHOD 11/20/2024 5:06 PM EDT [facility] RBC Count 2.13(L) 4.60 - 6.10 10*6/uL LAB HEMATOLOGY METHOD 11/20/2024 5:06 PM EDT [facility] HGB 7.5(L) 13.7 - 17.5 g/dL LAB HEMATOLOGY METHOD 11/20/2024 5:06 PM EDT [facility] HCT 20.4(L) 40.0 - 51.0 % LAB HEMATOLOGY METHOD 11/20/2024 5:06 PM EDT [facility] Platelet Count 10(LL) 155 - 369 10*3/uL LAB HEMATOLOGY METHOD 11/20/2024 5:06 PM EDT [facility] MCV 96 79 - 98 fL LAB HEMATOLOGY METHOD 11/20/2024 5:06 PM EDT [facility] MCH 35.2(H) 26.0 - 32.0 pg LAB HEMATOLOGY METHOD 11/20/2024 5:06 PM EDT [facility] MCHC 36.8(H) 30.7 - 35.5 g/dL LAB HEMATOLOGY METHOD 11/20/2024 5:06 PM EDT [facility] RDW 19.7(H) 11.5 - 14.5 % LAB HEMATOLOGY METHOD 11/20/2024 5:06 PM EDT [facility] MPV LAB HEMATOLOGY METHOD 11/20/2024 5:06 PM EDT [facility] Comment:Not Measured nRBC 2.4(H) <=0.0 per 100 WBCs LAB HEMATOLOGY METHOD 11/20/2024 5:06 PM EDT [facility] Blood Venous blood specimen / Unknown Venipuncture / Unknown 11/20/2024 1:49 PM EDT 11/20/2024 1:51 PM EDT [facility] - 11/20/2024 5:06 PM EDT Therapeutic [...] ORDERABLES Final Re sult Performing Organization Address City/[facility] Co de Phone Number [facility] [address] [place] [address] [place] [address] * Type and screen (11/18/2024 12:21 PM EDT) ABO/Rh O Negative 11/18/2024 12:20 PM EDT BLOOD BANK Antibody Screen Negative 11/18/2024 12:20 PM EDT BLOOD BANK Specimen Expiration 11/21/2024 23:59 11/18/2024 12:20 PM EDT BLOOD BANK Blood Venous blood specimen / Unknown Venipuncture / Unknown 11/18/2024 12:21 PM EDT 11/18/2024 12:28 PM EDT Isaura Wynn APRN LAB BLOOD BANK TEST ORDERABLES Final Result Performing Organization Address [facility] de Phone Number BLOOD BANK [address] [place] [address], * (ABNORMAL) CBC and Differential (11/18/2024 10:00 AM EDT) WBC Count 0.78(LL) 3.70 - 10.30 10*3/uL LAB HEMATOLOGY METHOD 11/18/2024 12:28 PM EDT [facility] RBC Count 2.01(L) 4.60 - 6.10 10*6/uL LAB HEMATOLOGY METHOD 11/18/2024 12:28 PM EDT [facility] HGB 7.2(L) 13.7 - 17.5 g/dL LAB HEMATOLOGY METHOD 11/18/2024 12:28 PM EDT [facility] HCT 19.9(L) 40.0 - 51.0 % LAB HEMATOLOGY METHOD 11/18/2024 12:28 PM EDT [facility] Platelet Count 5(LL) 155 - 369 10*3/uL LAB HEMATOLOGY METHOD 11/18/2024 12:28 PM EDT [facility] MCV 99(H) 79 - 98 fL LAB HEMATOLOGY METHOD 11/18/2024 12:28 PM EDT [facility] MCH 35.8(H) 26.0 - 32.0 pg LAB HEMATOLOGY METHOD 11/18/2024 12:28 PM EDT [facility] MCHC 36.2(H) 30.7 - 35.5 g/dL LAB HEMATOLOGY METHOD 11/18/2024 12:28 PM EDT [facility] RDW 20.6(H) 11.5 - 14.5 % LAB HEMATOLOGY METHOD 11/18/2024 12:28 PM EDT [facility] MPV LAB HEMATOLOGY METHOD 11/18/2024 12:28 PM EDT [facility] Comment:Not Measured nRBC 6.4(H) <=0.0 per 100 WBCs LAB HEMATOLOGY METHOD 11/18/2024 12:28 PM EDT [facility] Differential Type Automated LAB HEMATOLOGY METHOD 11/18/2024 12:28 PM EDT [facility] Neutrophils % 12 % LAB HEMATOLOGY METHOD 11/18/2024 12:28 PM EDT [facility] Lymphocytes % 80 % LAB HEMATOLOGY METHOD 11/18/2024 12:28 PM EDT [facility] Monocytes % 8 % LAB HEMATOLOGY METHOD 11/18/2024 12:28 PM EDT [facility] Eosinophils % 0 % LAB HEMATOLOGY METHOD 11/18/2024 12:28 PM EDT [facility] Basophils % 0 % LAB HEMATOLOGY METHOD 11/18/2024 12:28 PM EDT [facility] Immature Granulocytes % 0 % LAB HEMATOLOGY METHOD 11/18/2024 12:28 PM EDT [facility] Neutrophils Absolute 0.09(LL) 1.60 - 6.10 10*3/uL LAB HEMATOLOGY METHOD 11/18/2024 12:28 PM EDT [facility] Lymphocytes Absolute 0.63(L) 1.20 - 3.90 10*3/uL LAB HEMATOLOGY METHOD 11/18/2024 12:28 PM EDT [facility] Monocytes Absolute 0.06(L) 0.30 - 0.90 10*3/uL LAB HEMATOLOGY METHOD 11/18/2024 12:28 PM EDT [facility] Eosinophils Absolute 0.00 0.00 - 0.50 10*3/uL LAB HEMATOLOGY METHOD 11/18/2024 12:28 PM EDT [facility] Basophils Absolute 0.00 0.00 - 0.10 10*3/uL LAB HEMATOLOGY METHOD 11/18/2024 12:28 PM EDT [facility] Immature Granulocytes Absolute 0.00 0.00 - 0.06 10*3/uL LAB HEMATOLOGY METHOD 11/18/2024 12:28 PM EDT [facility] Blood Venous blood specimen / Unknown Venipuncture / Unknown 11/18/2024 10:00 AM EDT 11/18/2024 10:14 AM EDT Narrative [facility] - 11/18/2024 12:28 PM EDT Therapeutic decision making should be based on absolute values, rather than percentages. us Virgen Vargas MD LAB BLOOD ORDERABLES Final Re sult [facility] [address] [place] [address] * (ABNORMAL) Comprehensive Metabolic Panel, Plasma (11/18/2024 10:00 AM EDT) Glucose, Plasma 105(H) 74 - 99 mg/dL 11/18/2024 10:44 AM EDT [facility] BUN, Plasma 12 8 - 23 mg/dL 11/18/2024 10:44 AM EDT [facility] Creatinine, Plasma 1.02 0.70 - 1.20 mg/dL 11/18/2024 10:44 AM EDT [facility] BUN/Creatinine Ratio 12 11/18/2024 10:44 AM EDT [facility] Sodium, Plasma 139 136 - 145 mmol/L 11/18/2024 10:44 AM EDT [facility] Potassium, Plasma 4.2 3.6 - 4.9 mmol/L 11/18/2024 10:44 AM EDT [facility] Chloride, Plasma 109(H) 97 - 107 mmol/L 11/18/2024 10:44 AM EDT [facility] CO2, Plasma 21(L) 22 - 29 mmol/L 11/18/2024 10:44 AM EDT [facility] Anion Gap 9 6 - 16 mmol/L 11/18/2024 10:44 AM EDT [facility] Total Calcium, Plasma 8.9 8.9 - 10.2 mg/dL 11/18/2024 10:44 AM EDT [facility] Total Protein 6.8 6.3 - 7.9 g/dL 11/18/2024 10:44 AM EDT [facility] Albumin, Plasma 3.9 3.5 - 5.2 g/dL 11/18/2024 10:44 AM EDT [facility] AST, Plasma 103(H) 10 - 50 U/L 11/18/2024 10:44 AM EDT [facility] ALT, Plasma 94(H) 10 - 50 U/L 11/18/2024 10:44 AM EDT [facility] Alkaline Phosphatase, Plasma 94 40 - 115 U/L 11/18/2024 10:44 AM EDT [facility] Total Bilirubin, Plasma 0.6 0.2 - 1.1 mg/dL 11/18/2024 10:44 AM EDT [facility] eGFRcr 79.6 mL/min/1.7 3m*2 11/18/2024 10:44 AM EDT [facility] Comment:Reported eGFRcr in m L/min/1.73m2 is based the CKD-EPI 2020 equation that does not use a race coefficient. Blood Venous blood specimen / Unknown Venipuncture / Unknown 11/18/2024 10:00 AM EDT 11/18/2024 10:13 AM EDT us Virgen Vargas MD LAB BLOOD ORDERABLES Final Re sult [facility] [address] [place] [address] documented in this encounter Visit Diagnoses Diagnosis [...] documented as of this encounter Care Teams Leach Tank Tender Relationship Specialty Start Date End Date Zhao Harris MD [address] [place] [address] [address] [place] [address] PCP - General 12/03/20 documented as of this encounter
--- OUTSIDE RECORDS SUMMARY | 2024-11-18 12:25 | XMS_ITS | Encounter Summary ---
Author Organization [facility] Address [address] [place] [address] Care Team Providers Care Vp Digital Marketing Social Media And Crm Name Role Phone Zhao Harris MD Primary Care Provider + [phone] Reason for Visit * Episode Based Medications (Routine) - Authorized Specialty Diagnoses / Procedures Referred By Justice mcgee Referred To Contact Diagnoses Myelodysplasia (myelodysplastic syndrome) (CMS/HCC) Procedures Azacitidine Daily x 7 / Venetoclax Every 28 Days Virgen Vargas MD [address] [address] Phone: tel: fax: Virgen Vargas MD [address] [address] Phone: tel: fax: Referral ID Status Reason Start Date Expiration Date V isits Requested Visits Authorized [id number] Authorized 10/20/2024 04/21/2026 1 91 Encounter Details Date Type Department Care Team (Latest Contact Info) Description 11/18/2024 12:25 PM EDT - 11/18/2024 11:59 PM EDT Hospital Encounter [facility] Infusion Clinic [address] [place] [phone] Myelodysplasia (myelodysplastic syndrome) (CMS/HCC) (Primary Dx); Thrombocytopenia [...] drink first t manav in the morning (EYE-NETWORK SYSTEMS ENGINEER) to steady your nerves or to [...] Sign Reading Time Taken Comments Blood Pressure 104/63 11/18/2024 3:47 PM EDT Pulse 63 11/18/2024 3:47 PM EDT Temperature 37.1 C (98.8 F) 11/18/2024 3:47 PM EDT Respiratory Rate 18 11/18/2024 3:47 PM EDT Oxygen Saturation 99% 11/18/2024 3:47 PM EDT Inhaled Oxygen Concentration - - Weight 86.1 kg (189 lb 13.1 oz) 025 12:27 PM EDT Height 170.2 cm (5' 7 ) 11/18/2024 12:2 7 PM EDT Body Mass Index 29.73 11/18/2024 12:27 PM EDT documented in this encounter Medications at Time of Discharge acyclovir (Zovirax) 800 MG tabletIndications :Myelodysplasia (myelodysplastic syndrome) (CMS/HCC) Take 1 tablet (800 mg) by mouth in the morning and 1 tablet (800 mg) before bedtime. 60 tablet 3 10/14/2024 bisoprolol (Zebeta) 5 MG tabletIndications :Coronary artery disease involving [place] heart with angina pectoris, unspecified vessel or lesion type (CMS/HCC),Hyperte nsion, unspecified type Take 1 tablet (5 mg) by mouth daily. 90 tablet 3 09/11/2024 HYDROcodone-aceta minophen ([place]) 5-325 MG tablet Take 1 tablet by [...] MG SL tabletIndications :Coronary artery disease involving [place] de[place] heart with angina pectoris, unspecified vessel or lesion type (CMS/HCC) Place 1 tablet (0.4 mg) under the tongue every 5 (five) minutes as needed for chest pain. 10 tablet 11 09/11/2024 aspirin 81 MG chewable tablet Chew 1 tablet (81 mg) 1 (one) time each day. aspirin 81 mg tablet 30 tablet 11 11/29/2023 amLODIPine (Norvasc) 2.5 MG tabletIndications :Coronary artery disease involving [place] de[place] heart with angina pectoris, unspecified vessel or [...] at the same time. 28 patch 09/29/2024 5 venetoclax (Venclexta) 10 MG tabletIndications :Myelodysplasia (myelodysplastic syndrome) (CMS/HCC) Take 2 tablets by mouth daily. Days 1-14. Take with 50 mg tablets for a total of 70 mg daily 28 tablet 11/18/2024 5 venetoclax (Venclexta) 50 MG tabletIndications :Myelodysplasia (myelodysplastic syndrome) (CMS/HCC) Take 1 tablet by mouth daily. Days 1-14 14 tablet 11/18/2024 5 documented as of this encounter Miscellaneous Notes * Addendum Note - Irena Velasquez - 11/18/2024 12:30 PM EDTEncounter addended by: Irena Velasquez on: 11/19/2024 7:21 AM Actions taken: Order list changed, Diagnosis association updated, Child order released for a procedure order documented in this encounter Plan of Treatment Upcoming Encounters Date Type Department Care Team (Late st Contact Info) Description 01/13/2025 9:30 AM EDT Clinical Support [facility] Hematology/BMT and Cellular Therapy Program 750 [facility] [place] [address] 01/13/2025 10:00 AM EDT Office Visit [facility] CC Hematology/BMT and Cellular Therapy Program 750 [facility] [place] [address] Isaura Wynn, COUNSELOR AT LAW 800 [facility] [address] [place] [phone] 01/13/2025 11:30 AM EDT Appointment P[facility] H Infusion [address] [place] [address] 01/14/2025 2:00 PM EDT Appointment [facility] H Infusion [address] [place] [address] 01/15/2025 2:00 PM EDT Appointment [facility] H Infusion [address] [place] [address] 01/16/2025 2:00 PM EDT Appointment [facility] H Infusion [address] [place] [address] 01/17/2025 2:00 PM EDT Appointment [facility] H Infusion 800 [place] [address] 01/18/2025 2:00 PM EDT Appointment [facility] H Infusion [address] [place] [address] 01/19/2025 2:00 PM EDT Appointment [facility] H Infusion [address] [place] [address] 03/10/2025 11:20 AM EDT Office Visit Pav CC Head, Neck & Respiratory 800 [facility], [address]nd [place] [address] Elsa Razo, COUNSELOR AT LAW [address] [place] [phone] documented as of this encounter Procedures Procedure Name Priority Date/Time Associated Diagnosis Comments TRANSFUSE RED BLOOD CELLS Routine 11/18/2024 2:10 PM EDT Myelodysplasia (myelodysplastic syndrome) (CMS/HCC) Thrombocytopenia (CMS/HCC) PLATELET COUNT, BLOOD STAT 11/18/2024 1:59 PM EDT TRANSFUSE PLATELETS Routine 11/18/2024 1 :25 PM EDT Myelodysplasia (myelodysplastic syndrome) (CMS/HCC) Thrombocytopenia (CMS/HCC) EXCEPTION TO STANDARD PRACTICE, PATHOLOGIST INTERPRETATION Routine 11/18/2024 1:08 PM EDT Myelodysplasia (myelodysplastic syndrome) (CMS/HCC) PREPARE PLATELETS Routine 11/18/2024 12: 33 PM EDT Myelodysplasia (myelodysplastic syndrome) (CMS/HCC) Thrombocytopenia (CMS/HCC) PREPARE RBC Routine 11/18/2024 12:33 PM EDT Myelodysplasia (myelodysplastic syndrome) (CMS/HCC) Thrombocytopenia (CMS/HCC) documented in this encounter Results * Transfuse RBC, Irradiated (11/18/2024 3:50 PM EDT) Kayli CHIU BLOOD TRANSFUSION ORDERA BLES Final Result * Transfuse RBC: 1 Units, Irradiated (11/18/2024 3:50 PM EDT) Kayli CHIU BLOOD TRANSFUSION ORDERA BLES Final Result * (ABNORMAL) Platelet count (11/18/2024 1:59 PM EDT) Platelet Count 36(L) 155 - 369 10*3/uL LAB HEMATOLOGY METHOD 11/18/2024 2:03 PM EDT [facility] Blood Venous blood specimen / Unknown Venipuncture / Unknown 11/18/2024 1:59 PM EDT 11/18/2024 2:01 PM EDT Virgen Vargas MD LAB BLOOD ORDERABLES Final Re sult [facility] [address] [place] [address] * Transfuse platelets (11/18/2024 1:48 PM EDT) Kayli CHIU BLOOD TRANSFUSION ORDERA BLES Final Result * Transfuse platelets: 1 Units (11/18/2024 1:48 PM EDT) us Kayli Daly Janetallegraaxel CHIU BLOOD TRANSFUSION ORDERA BLES Final Result * Exception to Standard Practice, Pathologist Interpretation (11/18/2024 1:08 PM EDT) Clinical Diagnosis, Exception to Standard Practice Thrombocytopenia 11/19/2024 10:24 AM EDT BLOOD BANK Interpretation , Exception to Standard Practice Your patient, who is RhD-negative, required transfusion of 1 unit apheresis platelet on 11/18/2024. Considering the available inventory and the necessity [...] isoimmunization may be considered, if clinically indicated. 11/19/2024 10:24 AM EDT BLOOD BANK Pathologist Signature, Exception to Standard Practice Reviewed by: Juwan Horton MD 11/19/2024 10:24 AM EDT BLOOD BANK LAB CP ASR DISCLAIMER No 11/19/2024 10:24 AM EDT BLOOD BANK Blood Bank Lab Only 11/18/2024 1:08 PM EDT 11/19/2024 7:21 AM EDT us Juwan Horton MD LAB BLOOD BANK TEST ORDERAB LES Final Result BLOOD BANK 800 [place] [address], * Prepare Leukocyte Reduced Platelets: 1 Units (11/18/2024 12:33 PM EDT) Product Code [id number] BLOO D BANK Dispense Status Transfused BLOOD BANK Blood Expiration Date [id number] BLOOD BANK Unit Number [id number] B LOOD BANK Product Blood Type 7300 BLOOD BANK Blood Type B+ BLOOD BANK Blood Venous blood specimen / Unknown Kayli CHIU BLOOD BANK PRODUCT ORDER VIKAS Final Result Performing Organization Address [facility] Co de Phone Number BLOOD BANK [address] * Prepare Leukocyte Reduced RBC: 1 Units, Irradiated (11/18/2024 12:33 PM EDT) Product Code [id number] CH BLOO D BANK Dispense Status Transfused BLOOD BANK Blood Expiration Date [id number] BLOOD BANK Unit Number [id number] CH B LOOD BANK Product Blood Type 9500 BLOOD BANK Blood Type O- BLOOD BANK Crossmatch Compatible BLOOD BANK Other Kayli CHIU BLOOD BANK PRODUCT ORDER VIKAS Final Result Performing Organization Address [facility] de Phone Number BLOOD BANK [address] documented in this encounter Visit Diagnoses Diagnosis Myelodysplasia (myelodysplastic syndrome) (CMS/HCC)- Primary Myelodysplastic syndrome, unspecified Thrombocytopenia (CMS/HCC) Unspecified thrombocytopenia documented in this encounter Administered Medications Inactive Administered Medications - up to 3 most recent administrations Medication Order MAR Action Action Date Dose Rate Site azaCITIDine (Vidaza) 150 mg in sodium chloride 0.9 % 50 mL IVPB 150 mg (rounded from 151.5 mg = 75 mg/m2 2.02 m2 Treatment Plan BSA from Recorded weight), Intravenous, at 540 mL/hr, Administer over 10 Minutes, Once, Infusion must be completed within 1 hour of reconstitution. Hazardous Drug-Tier 1 Precautions. Dispose in BLACK Hazardous Waste Container. Chemotherapy: refer to [id number]., On Sun11/18/24 at 1330, For 1 dose, In 50 mL NSIndications:Myelodysplasia (myelodysplastic syndrome) (CMS/HCC) New Bag 11/18/2024 1:09 PM EDT 150 mg 540 mL/hr ondansetron ODT (Zofran-ODT) disintegrating tablet 16 mg 16 mg, Oral, Once, 1 dose, On Sun11/18/24 at 1300, RoutineIndications:Myelodyspla haim (myelodysplastic syndrome) (CMS/HCC) Given 11/18/2024 12:48 PM EDT 16 mg documented in this encounter Additional Health Concerns Assessment Noted Time PHQ-9 Depression Total Score: 0 09/11/19 9:15 AM EST A fall risk assessment has been complete d for the patient 11/18/2024 12:27 PM EDT A Body Mass Index follow-up plan has been documented for the patient 11/10/2024 1:06 PM EDT documented as of this encounter Care Teams Vp Digital Marketing Social Media And Crm Relationship Specialty Start Date End Date Zhao Harris MD [address] [place] [address] [place] [address] PCP - General 12/03/20 documented as of this encounter
--- OUTSIDE RECORDS SUMMARY | 2024-11-19 14:00 | XMS_ITS | Encounter Summary ---
Author Organization [facility] Address [address] [place] [address] Care Team Providers Care Button Clamper Name Role Phone Zhao Harris MD Primary Care Provider + [phone] Reason for Visit * Episode Based Medications (Routine) - Authorized Specialty Diagnoses / Procedures Referred By Justice mcgee Referred To Contact Diagnoses Myelodysplasia (myelodysplastic syndrome) (CMS/HCC) Procedures Azacitidine Daily x 7 / Venetoclax Every 28 Days Virgen Vargas MD [address] [address] Phone: tel: fax: Virgen Vargas MD [address] [phone] Phone: tel: fax: Referral ID Status Reason Start Date Expiration Date V isits Requested Visits Authorized [id number] Authorized 10/20/2024 04/21/2026 1 91 Encounter Details Date Type Department Care Team (Latest Contact Info) Description 11/19/2024 2:00 PM EDT - 11/19/2024 11:59 PM EDT Hospital Encounter [facility] 1 [address] [place] [phone] Myelodysplasia (myelodysplastic syndrome) (CMS/HCC) (Primary Dx) Discharge [...] drink first t manav in the morning (EYE-FOOD ORDER DELIVERY RUNNER) to steady your nerves or to get [...] 5 MG tabletIndications :Coronary artery disease involving [place] heart with angina pectoris, unspecified vessel or lesion type (CMS/HCC),Hyperte nsion, unspecified type Take 1 tablet (5 mg) by mouth daily. 90 tablet 3 09/11/2024 HYDROcodone-aceta minophen ([place]) 5-325 MG tablet Take 1 tablet by [...] MG SL tabletIndications :Coronary artery disease involving [place] heart with angina pectoris, unspecified vessel or lesion type (CMS/HCC) Place 1 tablet (0.4 mg) under the tongue every 5 (five) minutes as needed for chest pain. 10 tablet 11 09/11/2024 aspirin 81 MG chewable tablet Chew 1 tablet (81 mg) 1 (one) time each day. aspirin 81 mg tablet 30 tablet 11 11/29/2023 amLODIPine (Norvasc) 2.5 MG tabletIndications :Coronary artery disease involving [place] heart with angina pectoris, unspecified vessel or [...] and Cellular Therapy Program [address], [address] [place] [phone] 01/13/2025 10:00 AM EDT Office Visit [facility]ology/BMT and Cellular Therapy Program 750 [facility], [address] [place] [phone] Isaura Wynn, WATCH COMMANDER [address] [facility] [address] [place] [phone] 01/13/2025 11:30 AM EDT Appointment [facility] [address] [place] [address] 01/14/2025 2:00 PM EDT Appointment [facility] [address] [place] [address] 01/15/2025 2:00 PM EDT Appointment [facility] [address] [place] [address] 01/16/2025 2:00 PM EDT Appointment [facility] [address] [place] [address] 01/17/2025 2:00 PM EDT Appointment [facility] [address] [place] [address] 01/18/2025 2:00 PM EDT Appointment [facility] [address] [place] [address] 01/19/2025 2:00 PM EDT Appointment [facility] [address] [place] [address] 03/10/2025 11:20 AM EDT Office Visit [facility] Head[facility] Neck [facility] Respiratory 800 [facility], [address] [place] [address] Elsa Razo, WATCH COMMANDER [address] [place] [phone] documented as of this encounter Visit Diagnoses [...] documented as of this encounter Care Teams Button Clamper Relationship Specialty Start Date End Date Zhao Harris MD [address] [place] [address] [place] [address] PCP - General 12/03/20 documented as of this encounter
--- OUTSIDE RECORDS SUMMARY | 2024-11-20 13:36 | XMS_ITS | Encounter Summary ---
Author Organization [facility] Address [address] [place] [address] Care Team Providers Care Mobile Sales Consultant Name Role Phone Zhao Harris MD Primary Care Provider [phone] Reason for Visit * Episode Based Medications (Routine) - Authorized Specialty Diagnoses / Procedures Referred By Justice [email or web address] Referred To Contact Diagnoses Myelodysplasia (myelodysplastic syndrome) (CMS/HCC) Procedures Azacitidine Daily x 7 / Venetoclax Every 28 Days Virgen Vargas MD [address] [address] Phone: tel: fax: Virgen Vargas MD [address] [address] Phone: tel: fax: Referral ID Status Reason Start Date Expiration Date V isits Requested Visits Authorized [id number] Authorized 10/20/2024 04/21/2026 1 91 Encounter Details Date Type Department Care Team (Latest Contact Info) Description 11/20/2024 1:36 PM EDT - 11/20/2024 2:05 PM EDT Hospital Encounter [facility] Infusion Clinic 1 [address] [place] [phone] Myelodysplasia (myelodysplastic syndrome) (CMS/HCC) (Primary Dx); Thrombocytopenia [...] drink first t manav in the morning (EYE-INCREMENT MANAGER) to steady your nerves or to get [...] 5 MG tabletIndications :Coronary artery disease involving circle heart with angina pectoris, unspecified vessel or lesion type (CMS/HCC),Hyperte nsion, unspecified type Take 1 tablet (5 mg) by mouth daily. 90 tablet 3 09/11/2024 HYDROcodone-aceta minophen ([place]) 5-325 MG tablet Take 1 tablet by [...] MG SL tabletIndications :Coronary artery disease involving circle heart with angina pectoris, unspecified vessel or lesion type (CMS/HCC) Place 1 tablet (0.4 mg) under the tongue every 5 (five) minutes as needed for chest pain. 10 tablet 11 09/11/2024 aspirin 81 MG chewable tablet Chew 1 tablet (81 mg) 1 (one) time each day. aspirin 81 mg tablet 30 tablet 11 11/29/2023 amLODIPine (Norvasc) 2.5 MG tabletIndications :Coronary artery disease involving circle heart with angina pectoris, unspecified vessel or [...] Upcoming Encounters Date Type Department Care Team ([facility] st Contact Info) Description 01/13/2025 9:30 AM EDT Clinical Support [facility] Hematology/BMT and Cellular Therapy Program [address] [address] 01/13/2025 10:00 AM EDT Office Visit [facility] Hematology/BMT and Cellular Therapy Program [address] [phone] Isaura Wynn, SENIOR RESEARCH MANAGER 800 [facility] [address] [place] [phone] 01/13/2025 11:30 AM EDT Appointment [facility] Infusion 800 [place] [address] 01/14/2025 2:00 PM EDT Appointment [facility]fusion [address] [place] [address] 01/15/2025 2:00 PM EDT Appointment [facility] Infusion 800 [place] [address] 01/16/2025 2:00 PM EDT Appointment [facility] 800 [place] [address] 01/17/2025 2:00 PM EDT Appointment [facility] 800 [place] [address] 01/18/2025 2:00 PM EDT Appointment [facility] Infusion 800 [place] [address] 01/19/2025 2:00 PM EDT Appointment [facility] 800 [place] [address] 03/10/2025 11:20 AM EDT Office Visit Pav [facility] Head, Neck & Respiratory 800 [facility], 2nd [place] [address] Elsa Razo, SENIOR RESEARCH MANAGER 800 [place] [address] Pending Results Name Type Priority Associated Diagnoses [...] LAB HEMATOLOGY METHOD 11/20/2024 6:40 PM EDT [facility] Blood Venous blood specimen / Unknown Venipuncture / Unknown 11/20/2024 6:15 PM EDT 11/20/2024 6:33 PM EDT Virgen Vargas MD LAB BLOOD ORDERABLES Final Re sult [facility] [address] [place] [address] * Transfuse RBC, Irradiated (11/20/2024 5:04 PM [...] TEST ORDERAB LES Edited Result - Final Performing Organization Address [facility]/ZIP Co de Phone Number BLOOD BANK 800 [place] [address], [place] * Prepare Leukocyte Reduced Platelets: 1 Units (11/20/2024 2:01 PM EDT) Product Code [id number] BLOO D BANK Dispense Status Transfused BLOOD BANK Blood Expiration Date BLOOD BANK Unit Number [id number] CH B LOOD BANK Product Blood Type 8400 BLOOD BANK Blood Type AB+ CH BLOOD BANK Blood Venous blood specimen / Unknown Kayli CHIU BLOOD BANK PRODUCT ORDER VIKAS Final Result Performing Organization Address [facility] Co de Phone Number BLOOD BANK [address] [place] [address], [place] * Prepare Leukocyte Reduced RBC: 1 Units, Irradiated (11/20/2024 2:01 PM EDT) Product Code [id number] BLOO D BANK Dispense Status Transfused BLOOD BANK Blood Expiration Date [id number] BLOOD BANK Unit Number [id number] CH B LOOD BANK Product Blood Type 9500 BLOOD BANK Blood Type O- CH BLOOD BANK Crossmatch Compatible BLOOD BANK Other Kayli CHIU BLOOD BANK PRODUCT ORDER VIKAS Final Result Performing Organization Address City/[facility]/ZIP Co de Phone Number BLOOD BANK 800 [place] [address], [place] * Morphology (11/20/2024 1:49 PM EDT) Acanthocytes Present 11/20/2024 5:05 PM EDT [facility] Echinocytes Present 11/20/2024 5:05 PM EDT [facility] RBC Morphology Slide Reviewed 2024 5:05 PM EDT [facility] Platelet Estimate Platelet smear estimate consistent with automated count 11/20/2024 5:05 PM EDT [facility] Blood Venous blood specimen / Unknown Venipuncture / Unknown 11/20/2024 1:49 PM EDT 11/20/2024 1:51 PM EDT us Virgen Vargas MD LAB BLOOD ORDERABLES Final Re sult [facility] [address] [place] [address] * (ABNORMAL) Manual Differential (11/20/2024 1:49 PM EDT) Blasts % 0 % 11/20/2024 5:04 PM EDT [facility] Promyelocytes % 0 % 5:04 PM EDT [facility] Myelocytes % 0 % 11/20/2024 5:04 PM EDT [facility] Metamyelocytes % 0 % 11/21/19 5:04 PM EDT [facility] Neutrophils % 15 % 11/20/2024 5:04 PM EDT [facility] Lymphocytes % 79 % 11/20/2024 5:04 PM EDT [facility] Reactive Lymphocytes % 2 % 11/20/2024 5:04 PM EDT [facility] Monocytes % 4 % 11/20/2024 5:04 PM EDT [facility] Eosinophils % 0 % 11/20/2024 5:04 PM EDT [facility] Basophils % 0 % 11/20/2024 5:04 PM EDT [facility] Blasts Absolute 0.00 10*3/UL 5:04 PM EDT [facility] Promyelocytes Absolute 0.00 10*3/uL 11/20/2024 5:04 PM EDT [facility] Myelocytes Absolute 0.00 10*3/uL 11/20/2024 5:04 PM EDT [facility] Metamyelocytes Absolute 0.00 10*3/uL 11/20/2024 5:04 PM EDT [facility] Neutrophils Absolute 0.12(LL) 1.60 - 6.10 10*3/uL 11/20/2024 5:04 PM EDT [facility] Lymphocytes Absolute 0.66(L) 1.20 - 3.90 10*3/uL 11/20/2024 5:04 PM EDT [facility] Reactive Lymphocytes Absolute 0.02 10*3/uL 11/20/2024 5:04 PM EDT [facility] Monocytes Absolute 0.03(L) 0.30 - 0.90 10*3/uL 11/20/2024 5:04 PM EDT [facility] Eosinophils Absolute 0.00 0.00 - 0.50 10*3/uL 11/20/2024 5:04 PM EDT [facility] Basophils Absolute 0.00 0.00 - 0.10 10*3/uL 11/20/2024 5:04 PM EDT [facility] Blood Venous blood specimen / Unknown Venipuncture / Unknown 11/20/2024 1:49 PM EDT 11/20/2024 1:51 PM EDT Virgen Vargas MD LAB BLOOD ORDERABLES Final Re sult [facility] [address] [place] [address] * Peripheral blood smear, pathologist interpretation (11/20/2024 1:49 PM EDT) Clinical Diagnosis, Peripheral Smear AML LAB HEMATOLOGY METHOD 11/20/2024 4:27 PM EDT [facility] Interpretation , Peripheral Smear Pancytopenia with marked neutropenia and few reactive lymphocytes. A resident was involved in the service. I attest I examined the relevant preparations for the specimens and confirmed the diagnosis or interpretation. 11/20/2024 4:27 PM EDT [facility] Pathologist Signature, Peripheral Smear 11/20/2024 4:27 PM EDT [facility] Comment:Reviewed by: Martha Lopez MD LAB CP ASR DISCLAIMER Yes 11/20/2024 4:27 PM EDT [facility] Blood Venous blood specimen / Unknown Venipuncture / Unknown 11/20/2024 1:49 PM EDT 11/20/2024 1:51 PM EDT Virgen Vargas MD LAB PATHOLOGY ORDERABLES Terri lara Result [facility] [address] [place] [address] * (ABNORMAL) Comprehensive Metabolic Panel, Plasma (11/20/2024 1:49 PM EDT) Glucose, Plasma 100(H) 74 - 99 mg/dL 11/20/2024 2:45 PM EDT [facility] BUN, Plasma 11 8 - 23 mg/dL 11/20/2024 2:45 PM EDT [facility] Creatinine, Plasma 1.01 0.70 - 1.20 mg/dL 11/20/2024 2:45 PM EDT [facility] BUN/Creatinine Ratio 11 11/20/2024 2:45 PM EDT [facility] Sodium, Plasma 135(L) 136 - 145 mmol/L 11/20/2024 2:45 PM EDT [facility] Potassium, Plasma 4.1 3.6 - 4.9 mmol/L 11/20/2024 2:45 PM EDT [facility] Chloride, Plasma 106 97 - 107 mmol/L 11/20/2024 2:45 PM EDT [facility] CO2, Plasma 21(L) 22 - 29 mmol/L 11/20/2024 2:45 PM EDT [facility] Anion Gap 8 6 - 16 mmol/L 11/20/2024 2:45 PM EDT [facility] Total Calcium, Plasma 9.1 8.9 - 10.2 mg/dL 11/20/2024 2:45 PM EDT [facility] Total Protein 6.7 6.3 - 7.9 g/dL 11/20/2024 2:45 PM EDT [facility] Albumin, Plasma 3.9 3.5 - 5.2 g/dL 11/20/2024 2:45 PM EDT [facility] AST, Plasma 26 10 - 50 U/L 11/20/2024 2:45 PM EDT [facility] ALT, Plasma 43 10 - 50 U/L 11/20/2024 2:45 PM EDT [facility] Alkaline Phosphatase, Plasma 71 40 - 115 U/L 11/20/2024 2:45 PM EDT [facility] Total Bilirubin, Plasma 0.7 0.2 - 1.1 mg/dL 11/20/2024 2:45 PM EDT [facility] eGFRcr 80.5 mL/min/1.7 3m*2 11/20/2024 2:45 PM EDT [facility] Comment:Reported eGFRcr in m L/min/1.73m2 is based the CKD-EPI 2020 equation that does not use a race coefficient. Blood Venous blood specimen / Unknown Venipuncture / Unknown 11/20/2024 1:49 PM EDT 11/20/2024 2:13 PM EDT us Virgen Vargas MD LAB BLOOD ORDERABLES Final Re sult [facility] [address] [place] [address] * (ABNORMAL) CBC and differential (11/20/2024 1:49 PM EDT) WBC Count 0.83(LL) 3.70 - 10.30 10*3/uL LAB HEMATOLOGY METHOD 11/20/2024 5:06 PM EDT [facility] RBC Count 2.13(L) 4.60 - 6.10 10*6/uL LAB HEMATOLOGY METHOD 11/20/2024 5:06 PM EDT [facility] HGB 7.5(L) 13.7 - 17.5 g/dL LAB HEMATOLOGY METHOD 11/20/2024 5:06 PM EDT [facility] HCT 20.4(L) 40.0 - 51.0 % LAB HEMATOLOGY METHOD 11/20/2024 5:06 PM EDT [facility] Platelet Count 10(LL) 155 - 369 10*3/uL LAB HEMATOLOGY METHOD 11/20/2024 5:06 PM EDT [facility] MCV 96 79 - 98 fL LAB HEMATOLOGY METHOD 11/20/2024 5:06 PM EDT [facility] MCH 35.2(H) 26.0 - 32.0 pg LAB HEMATOLOGY METHOD 11/20/2024 5:06 PM EDT [facility] MCHC 36.8(H) 30.7 - 35.5 g/dL LAB HEMATOLOGY METHOD 11/20/2024 5:06 PM EDT [facility] RDW 19.7(H) 11.5 - 14.5 % LAB HEMATOLOGY METHOD 11/20/2024 5:06 PM EDT [facility] MPV LAB HEMATOLOGY METHOD 11/20/2024 5:06 PM EDT [facility] Comment:Not Measured nRBC 2.4(H) <=0.0 per 100 WBCs LAB HEMATOLOGY METHOD 11/20/2024 5:06 PM EDT [facility] Blood Venous blood specimen / Unknown Venipuncture / Unknown 11/20/2024 1:49 PM EDT 11/20/2024 1:51 PM EDT [facility] - 11/20/2024 5:06 PM EDT Therapeutic [...] MD LAB BLOOD ORDERABLES Final Re sult [facility] [address] LAB 800 [place] [address] documented in this encounter Visit Diagnoses Diagnosis [...] dose, In 50 mL NSIndications:Myelodysplasia (myelodysplastic syndrome) ([facility]/HCC) New Bag 11/20/2024 2:38 PM EDT 150 mg 540 mL/hr ondansetron ODT (Zofran-ODT) disintegrating tablet 16 mg 16 mg, Oral, Once, 1 dose, On Christina 11/20/24 at 1415, RoutineIndications:Myelodyspla haim (myelodysplastic syndrome) ([facility]) Given 11/20/2024 2:03 PM EDT 16 mg [...] documented as of this encounter Care Teams Mobile Sales Consultant Relationship Specialty Start Date End Date Zhao Harris MD [address] [place] [address] PCP - General 12/03/20 documented as of this encounter
--- OUTSIDE RECORDS SUMMARY | 2024-11-20 14:06 | XMS_ITS | Encounter Summary ---
Author Organization [facility] Address [address] [place] [address] Care Team Providers Care Hospital Corpsman Name Role Phone Zhao Harris MD Primary Care Provider [phone] Encounter Details Date Type Department Care Team (Latest Contact Info) Description 11/20/2024 2:06 PM EDT - 11/20/2024 11:59 PM EDT Hospital En[facility] Infusion Clinic [address] [place] [phone] Myelodysplasia (myelodysplastic syndrome) (CMS/HCC) (Primary Dx) Discharge [...] drink first t manav in the morning (EYE-WIND TURBINE DESIGN ENGINEER) to steady your nerves or to [...] 5 MG tabletIndications :Coronary artery disease involving [place] heart with angina pectoris, unspecified vessel or lesion type (CMS/HCC),Hyperte nsion, unspecified type Take 1 tablet (5 mg) by mouth daily. 90 tablet 3 09/11/2024 HYDROcodone-aceta minophen ([place]) 5-325 MG tablet Take 1 tablet by [...] MG SL tabletIndications :Coronary artery disease involving [place] heart with angina pectoris, unspecified vessel or [...] 2.5 MG tabletIndications :Coronary artery disease involving [place] heart with angina pectoris, unspecified vessel or [...] CC Hematology/BMT and Cellular Therapy Program [address] [facility], [address] [place] [phone] 01/13/2025 10:00 AM EDT Office Visit [facility] Hematology/BMT and Cellular Therapy Program [address] [facility], [facility] [place] [address] Isaura Wynn, ELECTRICAL WORKER 800 [facility] [address] [place] [phone] 01/13/2025 11:30 AM EDT Appointment [facility] H Infusion [address] [place] [address] 01/14/2025 2:00 PM EDT Appointment [facility] Infusion [address] [place] [address] 01/15/2025 2:00 PM EDT Appointment [facility] Infusion [address] [place] [address] 01/16/2025 2:00 PM EDT Appointment [facility] Infusion [address] [place] [address] 01/17/2025 2:00 PM EDT Appointment [facility] Infusion [address] [place] [address] 01/18/2025 2:00 PM EDT Appointment [facility] Infusion [address] [place] [address] 01/19/2025 2:00 PM EDT Appointment [facility] Infusion [address] [place] [address] 03/10/2025 11:20 AM EDT Office Visit Pav CC Head, Neck & Respiratory [address] [facility], [address] [place] [address] Elsa Razo, ELECTRICAL WORKER 800 [place] [phone] documented as of this encounter Visit Diagnoses [...] documented as of this encounter Care Teams Hospital Corpsman Relationship Specialty Start Date End Date Zhao Harris MD [address] [place] [address] PCP - General 12/03/20 documented as of this encounter
--- OUTSIDE RECORDS SUMMARY | 2024-11-21 13:30 | XMS_ITS | Encounter Summary ---
Author Organization [facility] Address [address] [place] [address] Care Team Providers Care Political Research Scientist Name Role Phone Zhao Harris MD Primary Care Provider + [phone] Reason for Visit * Episode Based Medications (Routine) - Authorized Specialty Diagnoses / Procedures Referred By Justice mcgee Referred To Contact Diagnoses Myelodysplasia (myelodysplastic syndrome) (CMS/HCC) Procedures Azacitidine Daily x 7 / Venetoclax Every 28 Days Virgen Vargas MD [address] [address] Phone: tel: fax: Virgen Vargas MD [address] [phone] Phone: tel: fax: Referral ID Status Reason Start Date Expiration Date V isits Requested Visits Authorized [id number] Authorized 10/20/2024 04/21/2026 1 91 Encounter Details Date Type Department Care Team (Latest Contact Info) Description 11/21/2024 1:30 PM EDT - 11/21/2024 11:59 PM EDT Hospital Encounter [facility] Infusion Clinic 1 [address] [place] [phone] Myelodysplasia (myelodysplastic syndrome) (CMS/HCC) (Primary Dx) Discharge [...] drink first t manav in the morning (EYE-SENIOR TREASURY CONSULTANT) to steady your nerves or to get [...] 5 MG tabletIndications :Coronary artery disease involving [place] heart with angina pectoris, unspecified vessel or lesion type (CMS/HCC),Hyperte nsion, unspecified type Take 1 tablet (5 mg) by mouth daily. 90 tablet 3 09/11/2024 HYDROcodone-aceta minophen ([place]) 5-325 MG tablet Take 1 tablet by [...] MG SL tabletIndications :Coronary artery disease involving [place] heart with angina pectoris, unspecified vessel or [...] 2.5 MG tabletIndications :Coronary artery disease involving [place] heart with angina pectoris, unspecified vessel or [...] Upcoming Encounters Date Type Department Care Team ([facility] st Contact Info) Description 01/13/2025 9:30 AM EDT Clinical Support [facility] Hematology/BMT and Cellular Therapy Program [address] [phone] 01/13/2025 10:00 AM EDT Office Visit [facility] Hematology/BMT and Cellular Therapy Program [address] [phone] Isaura Wynn, SWEATBAND PERFORATOR 800 [facility] [address] [place] [phone] 01/13/2025 11:30 AM EDT Appointment [facility] H Infusion [address] [place] [address] 01/14/2025 2:00 PM EDT Appointment [facility] Infusion [address] [place] [address] 01/15/2025 2:00 PM EDT Appointment [facility] Infusion [address] [place] [address] 01/16/2025 2:00 PM EDT Appointment [facility] Infusion [address] [place] [address] 01/17/2025 2:00 PM EDT Appointment [facility] Infusion [address] [place] [address] 01/18/2025 2:00 PM EDT Appointment [facility] Infusion [address] [place] [address] 01/19/2025 2:00 PM EDT Appointment [facility] Infusion [address] [place] [address] 03/10/2025 11:20 AM EDT Office Visit Pav CC Head, Neck & Respiratory 800 [facility], 2nd [place] [address] Elsa Razo, SWEATBAND PERFORATOR [address] [place] [address] documented as of this encounter Visit Diagnoses [...] documented as of this encounter Care Teams Political Research Scientist Relationship Specialty Start Date End Date Zhao Harris MD [address] [place] [address] PCP - General 12/03/20 documented as of this encounter
--- OUTSIDE RECORDS SUMMARY | 2024-11-22 13:59 | XMS_ITS | Encounter Summary ---
Author Organization [facility] Address [address] [facility] [place] [address] Care Team Providers Care Milk Powder Grinder Name Role Phone Zhao Harris MD Primary Care Provider + [phone] Reason for Visit * Episode Based Medications (Routine) - Authorized Specialty Diagnoses / Procedures Referred By Justice mcgee Referred To Contact Diagnoses Myelodysplasia (myelodysplastic syndrome) (CMS/HCC) Procedures Azacitidine Daily x 7 / Venetoclax Every 28 Days Virgen Vargas MD [address] [address] Phone: tel: fax: Virgen Vargas MD [address] [address] Phone: tel: fax: Referral ID Status Reason Start Date Expiration Date V isits Requested Visits Authorized [id number] Authorized 10/20/2024 04/21/2026 1 91 Encounter Details Date Type Department Care Team (Latest Contact Info) Description 11/22/2024 1:59 PM EDT - 11/22/2024 11:59 PM EDT Hospital Encounter [facility] Infusion Clinic 1 [address] [place] [phone] Myelodysplasia (myelodysplastic syndrome) (CMS/HCC) (Primary Dx); Thrombocytopenia [...] first t manav in the morning (EYE-HANDLE LATHE OPERATOR) to steady your nerves or [...] Sign Reading Time Taken Comments Blood Pressure 115/67 11/22/2024 4:33 PM EDT Pulse 58 11/22/2024 4:33 PM EDT Temperature 36.8 C (98.2 F) 11/22/2024 4:33 PM EDT Respiratory Rate 18 11/22/2024 4:33 PM EDT Oxygen Saturation 97% 11/22/2024 2:07 PM EDT Inhaled Oxygen Concentration - - Weight 87.2 kg (192 lb 3.9 oz) 11/22/2024 2:07 P M EDT Height 170.2 cm (5' 7 ) 11/22/2024 2:07 PM EDT Body Mass Index 30.11 11/22/2024 2:07 PM EDT documented in this encounter Medications at Time of Discharge acyclovir (Zovirax) 800 MG tabletIndications :Myelodysplasia (myelodysplastic syndrome) (CMS/HCC) Take 1 tablet (800 mg) by mouth in the morning and 1 tablet (800 mg) before bedtime. 60 tablet 3 10/14/2024 bisoprolol (Zebeta) 5 MG tabletIndications :Coronary artery disease involving [place] heart with angina pectoris, unspecified vessel or lesion type (CMS/HCC),Hyperte nsion, unspecified type Take 1 tablet (5 mg) by mouth daily. 90 tablet 3 09/11/2024 HYDROcodone-aceta minophen ([place]) 5-325 MG tablet Take 1 tablet by [...] MG SL tabletIndications :Coronary artery disease involving [place] heart with angina pectoris, unspecified vessel or lesion type (CMS/HCC) Place 1 tablet (0.4 mg) under the tongue every 5 (five) minutes as needed for chest pain. 10 tablet 11 09/11/2024 aspirin 81 MG chewable tablet Chew 1 tablet (81 mg) 1 (one) time each day. aspirin 81 mg tablet 30 tablet 11 11/29/2023 amLODIPine (Norvasc) 2.5 MG tabletIndications :Coronary artery disease involving [place]feet heart with angina pectoris, unspecified vessel or [...] * Addendum Note - Irena Velasquez - 11/22/2024 2:00 PM EDTEncounter addended by: Irena Velasquez on: 11/24/2024 8:51 AM Actions taken: Order list changed, Diagnosis association updated, Child order released for a procedure order documented in this encounter Plan of Treatment Upcoming Encounters Date Type Department Care Team (Late st Contact Info) Description 01/13/2025 9:30 AM EDT Clinical Support P[facility] Hematology/BMT and Cellular Therapy Program 750 [facility], [address] [place] [address] 01/13/2025 10:00 AM EDT Office Visit PAV CC Hematology/BMT and Cellular Therapy Program 750 [facility] [place] [address] Isaura Wynn, PYTHON JAVA DEVELOPER 800 [facility] [address] [place] [phone] 01/13/2025 11:30 AM EDT Appointment PAV H Infusion 800 [place] [address] 01/14/2025 2:00 PM EDT Appointment PAV H Infusion [address] [place] [address] 01/15/2025 2:00 PM EDT Appointment PAV H Infusion [address] [place] [address] 01/16/2025 2:00 PM EDT Appointment PAV H Infusion 800 [place] [address] 01/17/2025 2:00 PM EDT Appointment PAV H Infusion [address] [place] [address] 01/18/2025 2:00 PM EDT Appointment PAV H Infusion [address] [place] [address] 01/19/2025 2:00 PM EDT Appointment PAV H Infusion 800 [place] [address] 03/10/2025 11:20 AM EDT Office Visit Pav CC Head, Neck & Respiratory 800 [facility], 2nd [place] [address] Elsa Razo, PYTHON JAVA DEVELOPER 800 [place] [phone] documented as of this encounter Procedures Procedure Name Priority Date/Time Associated Diagnosis Comments PLATELET COUNT, BLOOD Routine 11/22/2024 4:24 PM EDT EXCEPTION TO STANDARD PRACTICE, PATHOLOGIST INTERPRETATION Routine 11/22/2024 3:27 PM EDT Myelodysplasia (myelodysplastic syndrome) (CMS/HCC) PREPARE PLATELETS Routine 11/22/2024 3:1 8 PM EDT Myelodysplasia (myelodysplastic syndrome) (CMS/HCC) Thrombocytopenia (CMS/HCC) documented in this encounter Results * Transfuse platelets (11/22/2024 4:34 PM EDT) us Kayli CHIU BLOOD TRANSFUSION ORDERA BLES Final Result * (ABNORMAL) Platelet count (11/22/2024 4:24 PM EDT) Platelet Count 62(L) 155 - 369 10*3/uL LAB HEMATOLOGY METHOD 11/22/2024 5:13 PM EDT [facility] Blood Venous blood specimen / Unknown Venipuncture / Unknown 11/22/2024 4:24 PM EDT 11/22/2024 5:04 PM EDT us Virgen Vargas MD LAB BLOOD ORDERABLES Final Re sult [facility] [address] [place] [address] * Exception to Standard Practice, Pathologist Interpretation (11/22/2024 3:27 PM EDT) Clinical Diagnosis, Exception to Standard Practice thrombocytopenia 11/24/2024 3:27 PM EDT BLOOD BANK Interpretation , Exception to Standard Practice Your patient, who is RhD-negative, required transfusion of 1 unit of apheresis platelets on 11/22/24. Considering the available inventory and the necessity [...] isoimmunization may be considered, if clinically indicated. 11/24/2024 3:27 PM EDT BLOOD BANK Pathologist Signature, Exception to Standard Practice Reviewed by: Jakob Granados MD 11/24/2024 3:27 PM EDT BLOOD BANK LAB CP ASR DISCLAIMER No 11/24/2024 3:27 PM EDT BLOOD BANK Blood Bank Lab Only 11/22/2024 3:27 PM EDT 11/24/2024 8:51 AM EDT Juwan Horton MD LAB BLOOD BANK TEST ORDERAB LES Final Result Performing Organization Address [facility] Co de Phone Number BLOOD BANK [address] * Prepare Leukocyte Reduced Platelets: 1 Units (11/22/2024 3:18 PM EDT) Product Code [id number] CH BLOO D BANK Dispense Status Transfused BLOOD BANK Blood Expiration Date [id number] BLOOD BANK Unit Number [id number] CH B LOOD BANK Product Blood Type 5100 BLOOD BANK Blood Type O+ BLOOD BANK Blood Venous blood specimen / Unknown Kayli CHIU BLOOD BANK PRODUCT ORDER VIKAS Final Result Performing Organization Address [facility] de Phone Number BLOOD BANK [address] [place] [address] documented in this encounter Visit Diagnoses Diagnosis [...] Waste Container. Chemotherapy: refer to [id number]., On 11/22/24 at 1500, For 1 dose, In 50 mL NSIndications:Myelodysplasia (myelodysplastic syndrome) (CMS/HCC) New Bag 11/22/2024 3:02 PM EDT 150 mg 540 mL/hr ondansetron ODT (Zofran-ODT) disintegrating tablet 16 mg 16 mg, Oral, Once, 1 dose, On 11/22/24 at 1430, RoutineIndications:Myelodyspla haim (myelodysplastic syndrome) (CMS/HCC) Given 11/22/2024 2:33 PM EDT 16 mg documented in this encounter Additional Health Concerns Assessment Noted Time PHQ-9 Depression Total Score: 0 09/11/19 9:15 AM EST A fall risk assessment has been complete d for the patient 11/22/2024 2:07 PM EDT A Body Mass Index follow-up plan has been documented for the patient 11/10/2024 1:06 PM EDT documented as of this encounter Care Teams Milk Powder Grinder Relationship Specialty Start Date End Date Zhao Harris MD [address] [place] [address] [place] [address] PCP - General 12/03/20 documented as of this encounter
--- OUTSIDE RECORDS SUMMARY | 2024-11-23 13:43 | XMS_ITS | Encounter Summary ---
Author Organization [facility] Address [address] [place] [address] Care Team Providers Care Geophysics Scientist Name Role Phone Zhao Harris MD Primary Care Provider + [phone] Reason for Visit * Episode Based Medications (Routine) - Authorized Specialty Diagnoses / Procedures Referred By Justice mcgee Referred To Contact Diagnoses Myelodysplasia (myelodysplastic syndrome) (CMS/HCC) Procedures Azacitidine Daily x 7 / Venetoclax Every 28 Days Virgen Vargas MD [address] [address] Phone: tel: fax: Virgen Vargas MD [address] [address] Phone: tel: fax: Referral ID Status Reason Start Date Expiration Date V isits Requested Visits Authorized [id number] Authorized 10/20/2024 04/21/2026 1 91 Encounter Details Date Type Department Care Team (Latest Contact Info) Description 11/23/2024 1:43 PM EDT - 11/23/2024 11:59 PM EDT Hospital Encounter [facility] Infusion Clinic 1 [address] [place] [phone] Myelodysplasia (myelodysplastic syndrome) (CMS/HCC) (Primary Dx) Discharge [...] drink first t manav in the morning (EYE-CLOTHES MODEL) to steady your nerves or to get [...] 5 MG tabletIndications :Coronary artery disease involving [place] heart with angina pectoris, unspecified vessel or lesion type (CMS/HCC),Hyperte nsion, unspecified type Take 1 tablet (5 mg) by mouth daily. 90 tablet 3 09/11/2024 HYDROcodone-aceta minophen ([place]) 5-325 MG tablet Take 1 tablet by [...] MG SL tabletIndications :Coronary artery disease involving [place] heart with angina pectoris, unspecified vessel or lesion type (CMS/HCC) Place 1 tablet (0.4 mg) under the tongue every 5 (five) minutes as needed for chest pain. 10 tablet 11 09/11/2024 aspirin 81 MG chewable tablet Chew 1 tablet (81 mg) 1 (one) time each day. aspirin 81 mg tablet 30 tablet 11 11/29/2023 amLODIPine (Norvasc) 2.5 MG tabletIndications :Coronary artery disease involving tetlin heart with angina pectoris, unspecified vessel or [...] Upcoming Encounters Date Type Department Care Team ([facility] st Contact Info) Description 01/13/2025 9:30 AM EDT Clinical Support [facility] Hematology/BMT and Cellular Therapy Program [address] [address] 01/13/2025 10:00 AM EDT Office Visit [facility] Hematology/BMT and Cellular Therapy Program [address] [address] Isaura Wynn, MAINSTREAMING FACILITATOR 800 [facility] [address] [place] [phone] 01/13/2025 11:30 AM EDT Appointment [facility] H Infusion 800 [place] [address] 01/14/2025 2:00 PM EDT Appointment [facility] H Infusion 800 [place] [address] 01/15/2025 2:00 PM EDT Appointment [facility] H Infusion 800 [place] [address] 01/16/2025 2:00 PM EDT Appointment [facility] H Infusion 800 [place] [address] 01/17/2025 2:00 PM EDT Appointment [facility] H Infusion 800 [place] [address] 01/18/2025 2:00 PM EDT Appointment [facility] H Infusion 800 [place] [address] 01/19/2025 2:00 PM EDT Appointment [facility] H Infusion 800 [place] [address] 03/10/2025 11:20 AM EDT Office Visit Pav CC Head, Neck & Respiratory 800 [facility], 2nd [place] [address] Elsa Razo, MAINSTREAMING FACILITATOR 800 [place] [phone] documented as of this encounter Visit Diagnoses [...] documented as of this encounter Care Teams Geophysics Scientist Relationship Specialty Start Date End Date Zhao Harris MD [address] [place] [address] PCP - General 12/03/20 documented as of this encounter
--- OUTSIDE RECORDS SUMMARY | 2024-11-24 13:59 | XMS_ITS | Encounter Summary ---
Author Organization [facility] Address [address] [place] [address] Care Team Providers Care Care Team Assistant Name Role Phone Zhao Harris MD Primary Care Provider + [phone] Reason for Visit * Episode Based Medications (Routine) - Authorized Specialty Diagnoses / Procedures Referred By Justice mcgee Referred To Contact Diagnoses Myelodysplasia (myelodysplastic syndrome) (CMS/HCC) Procedures Azacitidine Daily x 7 / Venetoclax Every 28 Days Virgen Vargas MD [address] [address] Phone: tel: fax: Virgen Vargas MD [address] [address] Phone: tel: fax: Referral ID Status Reason Start Date Expiration Date V isits Requested Visits Authorized [id number] Authorized 10/20/2024 04/21/2026 1 91 Encounter Details Date Type Department Care Team (Latest Contact Info) Description 11/24/2024 1:59 PM EDT - 11/24/2024 2:29 PM EDT Hospital Encounter [facility] Infusion [facility] [address] [place] [phone] Myelodysplasia (myelodysplastic syndrome) (CMS/HCC) (Primary Dx); Thrombocytopenia [...] drink first t manav in the morning ([employer]) to steady your nerves or to get [...] Sign Reading Time Taken Comments Blood Pressure 130/71 11/24/2024 6:26 PM EDT Pulse 61 11/24/2024 6:26 PM EDT Temperature 37 C (98.6 F) 11/24/2024 6:26 PM EDT Respiratory Rate 20 11/24/2024 6:26 PM EDT Oxygen Saturation 100% 11/24/2024 6:26 PM EDT Inhaled Oxygen Concentration - - Weight 86.8 kg (191 lb 5.8 oz) 11/24/2024 2:02 P M EDT Height 170.2 cm (5' 7 ) 11/24/2024 2:02 PM EDT Body Mass Index 29.97 11/24/2024 2:02 PM EDT documented in this encounter Medications at Time of Discharge acyclovir (Zovirax) 800 MG tabletIndications :Myelodysplasia (myelodysplastic syndrome) (CMS/HCC) Take 1 tablet (800 mg) by mouth in the morning and 1 tablet (800 mg) before bedtime. 60 tablet 3 10/14/2024 bisoprolol (Zebeta) 5 MG tabletIndications :Coronary artery disease involving [place] heart with angina pectoris, unspecified vessel or lesion type (CMS/HCC),Hyperte nsion, unspecified type Take 1 tablet (5 mg) by mouth daily. 90 tablet 3 09/11/2024 HYDROcodone-aceta minophen (Rayne) 5-325 MG tablet Take 1 tablet by [...] MG SL tabletIndications :Coronary artery disease involving [place] heart with angina pectoris, unspecified vessel or lesion type (CMS/HCC) Place 1 tablet (0.4 mg) under the tongue every 5 (five) minutes as needed for chest pain. 10 tablet 11 09/11/2024 aspirin 81 MG chewable tablet Chew 1 tablet (81 mg) 1 (one) time each day. aspirin 81 mg tablet 30 tablet 11 11/29/2023 amLODIPine (Norvasc) 2.5 MG tabletIndications :Coronary artery disease involving [place] heart with angina pectoris, unspecified vessel or [...] as of this encounter Miscellaneous Notes * Progress Notes - Kayli Ospina PA - 11/24/2024 2:00 PM EDT Images from the original note were not included. Division of Hematology and Blood & Marrow Transplant [facility] ACUTE VISIT NOTE Patient Name: Hugo Lyons Date of : 1955 69 y.o. 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 male. 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 Acutely notified by nursing staff regarding red area on his left cuenca Subjective: Mr. Lyons reports having petechia on his left lower leg that seems to have developed into a largerspot. He noticed his rain boots rub up against that area and have recently started causing pain. 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 He is eating and drinking well. Denies fever, chills, CP, SOB, edema, abdominal pain. Review of Systems - Oncology 14 point Review of Systems is negative except what is mentioned above Oncology History Overview Note 2019- routine CBC [...] a preserved mata-T cell profile with a CD4:OG9zohvz of 2.7:1. Polyclonal B-cells (3%) and a [...] 75 mg/m2 = 150 mg, Intravenous, Once, 2 of 24 cycles Administration: 150 mg (10/20/2024), 150 mg (10/21/2024), 150 mg (10/22/2024), 150 mg (10/23/2024), 150 mg(10/24/2024), 150 mg (10/25/2024), 150 mg (11/18/2024), 150 mg (11/19/2024), 150 mg (11/20/2024), 150 mg (11/21/2024), 150 mg (11/22/2024), 150 mg (11/23/2024), 150 mg (10/26/2024) Medical History[1] Surgical History[2] Family History[3] Social History[4] Allergies[5] Current Medications[6] Objective Physical Exam: Vital Signs for this encounter: BSA: 2.03 meters squared Visit Vitals BP 124/66 (BP Location: Right arm, Patient Position: Sitting, BP Cuff Size: Adult) Pulse 69 Temp 36.8 ??C (98.2 ??F) (Oral) Resp 16 Ht 1.702 m (5' 7 ) Wt 86.8 kg (191 lb 5.8 oz) SpO2 96% BMI 29.97 kg/m?? Smoking Status Every Day BSA 2.03 m?? Vital Signs reviewed Physical Exam Constitutional: General: He is not in acute distress. Appearance: Normal appearance. He is not ill-appearing. HENT: Head: Normocephalic and atraumatic. Eyes: Extraocular Movements: Extraocular movements intact. Conjunctiva/sclera: Conjunctivae normal. Cardiovascular: Rate and Rhythm: Normal rate and regular rhythm. Pulmonary: Effort: Pulmonary effort is normal. No respiratory distress. Breath sounds: Normal breath sounds. No wheezing. Musculoskeletal: General: No deformity. Right lower leg: No edema. Left lower leg: No edema. Skin: Findings: No rash or wound. Comments: ~1cm purpura on anterior left lower leg. Scattered petechiae. No signs of infection Neurological: General: No focal deficit present. Mental Status: He is alert and oriented to person, place, and time. Sensory: No sensory deficit. Motor: No weakness. Gait: Gait normal. Psychiatric: Mood and Affect: Mood normal. Behavior: Behavior normal. 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 The biopsy revealed 15-17% blasts, multilineage dysplasia, and no fibrosis or ring sideroblasts. Flow cytometry showed 17% myeloblasts expressing CD34, CD117, CD13, and variably CD33. Cytogenetics and FLT3/NPM1 testing were normal We will proceed with donor search to keep transplant as an option. Dr. Vargas recommended that he pursue dental clearance and emphasized the importance of smoking cessation and minimizing alcohol use to optimize candidacy should he choose to move forward with transplant. Lesion on left lower leg Likely due to rubbing from boots and thrombocytopenia Plt 12 prior to transfusion today Advised to avoid wearing boots when possible and wearing a bandaid plus wrap or thick socks to protect the area when he does need to wear boots. Notify team if lesion does not improve; chance it could be caused by treatment. Headaches, improved CT head 11/03/24: No acute intracranial abnormality Pancytopenia related to leukemia/MDS Plan CBC x three times/week and transfuse PRBCs if Hb < 7 or platelets < 10. Use only leukoreduced and irradiated blood products. 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 Agree with holding ASA due to thrombocytopenia. Atorvastatin switched to rosuvastatin due to DDI between posaconazole and atorvastatin. He will need cardiac clearance prior to allogenic transplant. Tobacco and alcohol use Nicotine replacement. Stressed the need to stop smoking and reduce alcohol intake if BMT would be an option in the future. Physician Communication/Care Coordination - Continue to follow with Dr. Vargas - Next appointment on 12/09/24 ARAM Higuera HEMATOLOGY/BMT AND CELLULAR THERAPY PROGRAM [address] [place] [phone] SERVICE PAGER [phone]/[employer] CHAT 23 minutes was spent on this encounter; including preparing to see the patient, which involved review/interpretation of diagnostics and reports; obtaining and/or reviewing separately obtained history; performing appropriate physical exam; ordering/scheduling medications, tests or procedures; communicating findings and counseling/educating the patient, family and/or caregiver; documentation in EMR; and care coordination. [1] Past Medical History: Diagnosis Date Arteriosclerotic cardiovascular disease Chronic stable angina (CMS/HCC) Hypertension [2] Past Surgical History: Procedure Laterality Date TOTAL KNEE ARTHROPLASTY Right after broken patella [3] Family History Problem Relation Name Age of Onset Diabetes Other Heart attack Other [4] Social History Tobacco Use Smoking status: Every Day Average packs/day: 1.5 packs/day for 15.0 years (22.5 ttl pk-yrs) Types: Cigarettes Start date: 1994 Passive exposure: Current Smokeless tobacco: Never Vaping Use Vaping status: Never Used Substance Use Topics Alcohol use: Yes Alcohol/week: 6.0 standard drinks of alcohol Types: 6 Cans of beer per week Drug use: Never [5] No Known Allergies [6] Current Outpatient Medications: acyclovir (Zovirax) 800 MG tablet, Take 1 tablet (800 mg) by mouth in the morning and 1 tablet (800mg) before bedtime., Disp: 60 tablet, Rfl: 3 amLODIPine (Norvasc) 2.5 MG tablet, Take 1 tablet (2.5 mg) by mouth daily., Disp: 90 tablet, Rfl: 3 aspirin 81 MG chewable tablet, Chew 1 tablet (81 mg) 1 (one) time each day. aspirin 81 mg tablet, Disp: 30 tablet, Rfl: 11 bisoprolol (Zebeta) 5 MG tablet, Take 1 tablet (5 mg) by mouth daily., Disp: 90 tablet, Rfl: 3 HYDROcodone-acetaminophen (Rayne) 5-325 MG tablet, Take 1 tablet by mouth every 6 hours as needed.,Disp: , Rfl: hydrocortisone 2.5 % cream, Apply 1 Application topically as needed., Disp: , Rfl: isosorbide mononitrate ER (Imdur) 30 MG 24 hr tablet, Take 1 tablet (30 mg) by mouth daily. Do not crush or chew., Disp: 30 tablet, Rfl: 11 levoFLOXacin (Levaquin) 500 MG tablet, Take 1 tablet (500 mg) by mouth daily., Disp: 30 tablet, Rfl: 3 nicotine (Nicoderm CQ) 21 MG/24HR patch, Place 1 patch on the skin 1 (one) time each day at the same time., Disp: 28 patch, Rfl: 0 nitroglycerin (Nitrostat) 0.4 MG SL tablet, Place 1 tablet (0.4 mg) under the tongue every 5 (five)minutes as needed for chest pain., Disp: 10 tablet, Rfl: 11 posaconazole (Noxafil) [address] tablet, Take [...] for constipation., Disp: 30 tablet, Rfl: 3 venetoclax (Venclexta) 10 MG tablet, Take 2 tablets by mouth daily. Days 1-14. Take with 50 mg tablets for a total of 70 mg daily, Disp: 28 tablet, Rfl: 0 venetoclax (Venclexta) 50 MG tablet, Take 1 tablet by mouth daily. Days 1-14, Disp: 14 tablet, Rfl:0 Current Facility-Administered Medications: azaCITIDine (Vidaza) 150 mg in sodium chloride 0.9 % 50 mL IVPB, 75 mg/m2 (Treatment Plan Recorded), Intravenous, Once, Virgen Vargas MD Blood Therapy Plan Authorization, , , Once (Auth Referral), Kayli Ospina PA documented in this encounter Plan of Treatment Upcoming Encounters Date Type Department Care Team (Late st Contact Info) Description 01/13/2025 9:30 AM EDT Clinical Support [facility] Hematology/BMT and Cellular Therapy Program [address] [place] [address] 01/13/2025 10:00 AM EDT Office Visit [facility] Hematology/BMT and Cellular Therapy Program [address] [phone] Isaura Wynn, EDUCATION INTERN [address] [facility] [address] [place] [phone] 01/13/2025 11:30 AM EDT Appointment [facility] [address] [place] [address] 01/14/2025 2:00 PM EDT Appointment [facility] [address] [place] [address] 01/15/2025 2:00 PM EDT Appointment [facility] [address] [place] [address] 01/16/2025 2:00 PM EDT Appointment [facility] [address] [place] [address] 01/17/2025 2:00 PM EDT Appointment [facility] [address] [place] [address] 01/18/2025 2:00 PM EDT Appointment [facility] [address] [place] [address] 01/19/2025 2:00 PM EDT Appointment [facility] [address] [place] [address] 03/10/2025 11:20 AM EDT Office Visit [facility] Res[facility] 800 [facility], [address] [place] [address] Elsa Razo, EDUCATION INTERN [address] [place] [address] documented as of this encounter Procedures Procedure Name Priority Date/Time Associated Diagnosis Comments TRANSFUSE RED BLOOD CELLS Routine 11/24/2024 4:44 PM EDT Myelodysplasia (myelodysplastic syndrome) (CMS/HCC) Thrombocytopenia (CMS/HCC) PLATELET COUNT, BLOOD STAT 11/24/2024 4:19 PM EDT TRANSFUSE PLATELETS Routine 11/24/2024 3 :30 PM EDT Myelodysplasia (myelodysplastic syndrome) (CMS/HCC) Thrombocytopenia (CMS/HCC) EXCEPTION TO STANDARD PRACTICE, PATHOLOGIST INTERPRETATION Routine 11/24/2024 3:19 PM EDT Myelodysplasia (myelodysplastic syndrome) (CMS/HCC) PREPARE PLATELETS Routine 11/24/2024 2:3 6 PM EDT Myelodysplasia (myelodysplastic syndrome) (CMS/HCC) Thrombocytopenia (CMS/HCC) PREPARE RBC Routine 11/24/2024 2:36 PM EDT Myelodysplasia (myelodysplastic syndrome) (CMS/HCC) Thrombocytopenia (CMS/HCC) CBC WITH AUTO DIFFERENTIAL Routine 11/24/2024 2:07 PM EDT Myelodysplasia (myelodysplastic syndrome) (CMS/HCC) TYPE AND SCREEN Routine 11/24/2024 2:07 PM EDT COMPREHENSIVE METABOLIC PANEL, PLASMA Routine 11/24/2024 2:07 PM EDT Myelodysplasia (myelodysplastic syndrome) (CMS/HCC) documented in this encounter Results * Transfuse RBC, Irradiated (11/24/2024 6:27 PM EDT) Kayli CHIU BLOOD TRANSFUSION ORDERA BLES Final Result * Transfuse RBC: 1 Units, Irradiated (11/24/2024 6:27 PM EDT) Kayli CHIU BLOOD TRANSFUSION ORDERA BLES Final Result * (ABNORMAL) Platelet count (11/24/2024 4:19 PM EDT) [facility] Platelet Count 43(L) 155 - 369 10*3/uL LAB HEMATOLOGY METHOD 11/24/2024 4:23 PM EDT [facility] Blood Venous blood specimen / Unknown Venipuncture / Unknown 11/24/2024 4:19 PM EDT 11/24/2024 4:20 PM EDT Virgen Vargas MD LAB BLOOD ORDERABLES Final Re sult [facility] [address] [place] [address] * Transfuse platelets (11/24/2024 4:11 PM EDT) Kayli Daly Bhavesh CHIU BLOOD TRANSFUSION ORDERA BLES Final Result * Transfuse platelets: 1 Units (11/24/2024 4:11 PM EDT) Kayli Ospina ARAM BLOOD TRANSFUSION ORDERA BLES Final Result * Exception to Standard Practice, Pathologist Interpretation (11/24/2024 3:19 PM EDT) Clinical Diagnosis, Exception to Standard Practice thrombocytopenia 11/25/2024 9:33 AM EDT BLOOD BANK Interpretation , Exception to Standard Practice Your patient, who is RhD-negative, required transfusion of 1 unit of apheresis platelets on 11/24/24. Considering the available inventory and the necessity [...] isoimmunization may be considered, if clinically indicated. 11/25/2024 9:33 AM EDT BLOOD BANK Pathologist Signature, Exception to Standard Practice Reviewed by: Jakob Granados MD 11/25/2024 9:33 AM EDT BLOOD BANK LAB CP ASR DISCLAIMER No 11/25/2024 9:33 AM EDT BLOOD BANK Blood Bank Lab Only 11/24/2024 3:19 PM EDT 11/25/2024 7:32 AM EDT Juwan Horton MD LAB BLOOD BANK TEST ORDERAB LES Final Result BLOOD BANK [address] [place] [address], * Prepare Leukocyte Reduced Platelets: 1 Units (11/24/2024 2:36 PM EDT) Product Code H3725C25 CH BLOO D BANK Dispense Status Transfused BLOOD BANK Blood Expiration Date [id number] BLOOD BANK Unit Number [id number] B LOOD BANK Product Blood Type 6200 BLOOD BANK Blood Type A+ CH BLOOD BANK Blood Venous blood specimen / Unknown Kayli CHIU BLOOD BANK PRODUCT ORDER VIKAS Final Result Performing Organization Address [facility] Co de Phone Number BLOOD BANK [address] [place] [address], [place] * Prepare Leukocyte Reduced RBC: 1 Units, Irradiated (11/24/2024 2:36 PM EDT) Product Code [id number] CH BLOO D BANK Dispense Status Transfused BLOOD BANK Blood Expiration Date [id number] BLOOD BANK Unit Number [id number] CH B LOOD BANK Product Blood Type 9500 BLOOD BANK Blood Type O- BLOOD BANK Crossmatch Compatible BLOOD BANK Other Kayli CHIU BLOOD BANK PRODUCT ORDER VIKAS Final Result Performing Organization Address [facility] Co de Phone Number BLOOD BANK [address] [place] [address], * Type and Screen (11/24/2024 2:07 PM EDT) ABO/Rh O Negative 11/24/2024 2:02 PM EDT BLOOD BANK Antibody Screen Negative 11/24/2024 2:02 PM EDT BLOOD BANK Specimen Expiration 11/27/2024 23:59 11/24/2024 2:02 PM EDT BLOOD BANK Blood Venous blood specimen / Unknown Venipuncture / Unknown 11/24/2024 2:07 PM EDT 11/24/2024 2:24 PM EDT Virgen Vargas MD LAB BLOOD BANK TEST ORDERABLE S Final Result Performing Organization Address [facility] Co de Phone Number BLOOD BANK [address] [place] [address], [place] * Comprehensive Metabolic Panel, Plasma (11/24/2024 2:07 PM EDT) Glucose, Plasma 97 74 - 99 mg/dL 11/24/2024 3:44 PM EDT [facility] BUN, Plasma 13 8 - 23 mg/dL 11/24/2024 3:44 PM EDT [facility] Creatinine, Plasma 0.97 0.70 - 1.20 mg/dL 11/24/2024 3:44 PM EDT [facility] BUN/Creatinine Ratio 13 11/24/2024 3:44 PM EDT [facility] Sodium, Plasma 138 136 - 145 mmol/L 11/24/2024 3:44 PM EDT [facility] Potassium, Plasma 3.7 3.6 - 4.9 mmol/L 11/24/2024 3:44 PM EDT [facility] Chloride, Plasma 107 97 - 107 mmol/L 11/24/2024 3:44 PM EDT [facility] CO2, Plasma 22 22 - 29 mmol/L 11/24/2024 3:44 PM EDT [facility] Anion Gap 9 6 - 16 mmol/L 11/24/2024 3:44 PM EDT [facility] Total Calcium, Plasma 9.5 8.9 - 10.2 mg/dL 11/24/2024 3:44 PM EDT [facility] Total Protein 6.7 6.3 - 7.9 g/dL 11/24/2024 3:44 PM EDT [facility] Albumin, Plasma 3.8 3.5 - 5.2 g/dL 11/24/2024 3:44 PM EDT [facility] AST, Plasma 18 10 - 50 U/L 11/24/2024 3:44 PM EDT [facility] ALT, Plasma 20 10 - 50 U/L 11/24/2024 3:44 PM EDT [facility] Alkaline Phosphatase, Plasma 71 40 - 115 U/L 11/24/2024 3:44 PM EDT [facility] Total Bilirubin, Plasma 0.7 0.2 - 1.1 mg/dL 11/24/2024 3:44 PM EDT [facility] eGFRcr 84.5 mL/min/1.7 3m*2 11/24/2024 3:44 PM EDT [facility] Comment:Reported eGFRcr in m L/min/1.73m2 is based the CKD-EPI 2020 equation that does not use a race coefficient. Blood Venous blood specimen / Unknown Venipuncture / Unknown 11/24/2024 2:07 PM EDT 11/24/2024 2:44 PM EDT us Virgen Vargas MD LAB BLOOD ORDERABLES Final Re sult [facility] [address] [place] [address] * (ABNORMAL) CBC and Differential (11/24/2024 2:07 PM EDT) WBC Count 0.76(LL) 3.70 - 10.30 10*3/uL LAB HEMATOLOGY METHOD 11/24/2024 2:44 PM EDT [facility] RBC Count 2.37(L) 4.60 - 6.10 10*6/uL LAB HEMATOLOGY METHOD 11/24/2024 2:44 PM EDT [facility] HGB 8.0(L) 13.7 - 17.5 g/dL LAB HEMATOLOGY METHOD 11/24/2024 2:44 PM EDT [facility] HCT 22.3(L) 40.0 - 51.0 % LAB HEMATOLOGY METHOD 11/24/2024 2:44 PM EDT [facility] Platelet Count 12(LL) 155 - 369 10*3/uL LAB HEMATOLOGY METHOD 11/24/2024 2:44 PM EDT [facility] MCV 94 79 - 98 fL LAB HEMATOLOGY METHOD 11/24/2024 2:44 PM EDT [facility] MCH 33.8(H) 26.0 - 32.0 pg LAB HEMATOLOGY METHOD 11/24/2024 2:44 PM EDT [facility] MCHC 35.9(H) 30.7 - 35.5 g/dL LAB HEMATOLOGY METHOD 11/24/2024 2:44 PM EDT [facility] RDW 18.8(H) 11.5 - 14.5 % LAB HEMATOLOGY METHOD 11/24/2024 2:44 PM EDT [facility] MPV LAB HEMATOLOGY METHOD 11/24/2024 2:44 PM EDT [facility] Comment:Not Measured nRBC 0.0 <=0.0 per 100 WBCs LAB HEMATOLOGY METHOD 11/24/2024 2:44 PM EDT [facility] Differential Type Automated LAB HEMATOLOGY METHOD 11/24/2024 2:44 PM EDT [facility] Neutrophils % 16 % LAB HEMATOLOGY METHOD 11/24/2024 2:44 PM EDT [facility] Lymphocytes % 79 % LAB HEMATOLOGY METHOD 11/24/2024 2:44 PM EDT [facility] Monocytes % 4 % LAB HEMATOLOGY METHOD 11/24/2024 2:44 PM EDT [facility] Eosinophils % 1 % LAB HEMATOLOGY METHOD 11/24/2024 2:44 PM EDT [facility] Basophils % 0 % LAB HEMATOLOGY METHOD 11/24/2024 2:44 PM EDT [facility] Immature Granulocytes % 0 % LAB HEMATOLOGY METHOD 11/24/2024 2:44 PM EDT [facility] Neutrophils Absolute 0.12(LL) 1.60 - 6.10 10*3/uL LAB HEMATOLOGY METHOD 11/24/2024 2:44 PM EDT [facility] Lymphocytes Absolute 0.60(L) 1.20 - 3.90 10*3/uL LAB HEMATOLOGY METHOD 11/24/2024 2:44 PM EDT [facility] Monocytes Absolute 0.03(L) 0.30 - 0.90 10*3/uL LAB HEMATOLOGY METHOD 11/24/2024 2:44 PM EDT [facility] Eosinophils Absolute 0.01 0.00 - 0.50 10*3/uL LAB HEMATOLOGY METHOD 11/24/2024 2:44 PM EDT [facility] Basophils Absolute 0.00 0.00 - 0.10 10*3/uL LAB HEMATOLOGY METHOD 11/24/2024 2:44 PM EDT [facility] Immature Granulocytes Absolute 0.00 0.00 - 0.06 10*3/uL LAB HEMATOLOGY METHOD 11/24/2024 2:44 PM EDT [facility] Blood Venous blood specimen / Unknown Venipuncture / Unknown 11/24/2024 2:07 PM EDT 11/24/2024 2:13 PM EDT Narrative [facility] - 11/24/2024 2:44 PM EDT Therapeutic decision making should be based on absolute values, rather than percentages. us Virgen Vargas MD LAB BLOOD ORDERABLES Final Re sult [facility] [address] [place] [address] documented in this encounter Visit Diagnoses Diagnosis [...] Waste Container. Chemotherapy: refer to [id number]., On Sun11/24/24 at 1530, For 1 dose, In 50 mL NSIndications:Myelodysplasia (myelodysplastic syndrome) (CMS/HCC) New Bag 11/24/2024 4:28 PM EDT 150 mg 540 mL/hr ondansetron ODT (Zofran-ODT) disintegrating tablet 16 mg 16 mg, Oral, Once, 1 dose, On Sun11/24/24 at 1500, RoutineIndications:Myelodyspla haim (myelodysplastic syndrome) (CMS/HCC) Given 11/24/2024 2:43 PM EDT 16 mg documented in this encounter Additional Health Concerns Assessment Noted Time PHQ-9 Depression Total Score: 0 09/11/19 25 9:15 AM EST A fall risk assessment has been complete d for the patient 11/24/2024 2:03 PM EDT A Body Mass Index follow-up plan has been documented for the patient 11/24/2024 6:12 PM EDT documented as of this encounter Care Teams Care Team Assistant Relationship Specialty Start Date End Date Zhao Harris MD [facility] [place] [id number] PCP - General 12/03/20 documented as of this encounter
--- OUTSIDE RECORDS SUMMARY | 2024-11-24 14:30 | XMS_ITS | Encounter Summary ---
Author Organization [facility] Address [address] [place] [address] Care Team Providers Care Elementary School Professional Name Role Phone Zhao Harris MD Primary Care Provider [phone] Encounter Details Date Type Department Care Team (Latest Contact Info) Description 11/24/2024 2:30 PM EDT - 11/24/2024 11:59 PM EDT Hospital Encounter [facility] Infusion Clinic [address] [place] [phone] Discharge Disposition: Home or Self Care Social [...] first t manav in the morning (EYE-DIRECTOR OF DIGITAL PLATFORMS) to steady your nerves or to get [...] tabletIndications :Coronary artery disease involving [place] heart with angina pectoris, unspecified vessel or lesion type (CMS/HCC),Hyperte nsion, unspecified type Take 1 tablet (5 mg) by mouth daily. 90 tablet 3 09/11/2024 HYDROcodone-aceta minophen ([place]) 5-325 MG tablet Take 1 tablet by [...] tabletIndications :Coronary artery disease involving [place] heart with angina pectoris, unspecified vessel or [...] tabletIndications :Coronary artery disease involving [place] heart with angina pectoris, unspecified vessel or [...] CC Hematology/BMT and Cellular Therapy Program 750 [facility] [place] [address] 01/13/2025 10:00 AM EDT Office Visit PAV CC Hematology/BMT and Cellular Therapy Program 750 [facility] [place] [address] Isaura Wynn, MISSILE CONTROL PILOT 800 [facility] [address] [place] [phone] 01/13/2025 11:30 AM EDT Appointment [facility] H Infusion [address] [place] [address] 01/14/2025 2:00 PM EDT Appointment [facility] H Infusion [address] [place] [address] 01/15/2025 2:00 PM EDT Appointment [facility] H Infusion [address] [place] [address] 01/16/2025 2:00 PM EDT Appointment [facility] H Infusion [address] [place] [address] 01/17/2025 2:00 PM EDT Appointment [facility] H Infusion [address] [place] [address] 01/18/2025 2:00 PM EDT Appointment [facility] H Infusion [address] [place] [address] 01/19/2025 2:00 PM EDT Appointment [facility] H Infusion [address] [place] [address] 03/10/2025 11:20 AM EDT Office Visit Pav CC Head, Neck & Respiratory 800 [facility], 2nd [place] [address] Elsa Razo, MISSILE CONTROL PILOT [address] [place] [phone] documented as of this encounter Visit Diagnoses [...] as of this encounter Care Teams Elementary School Professional Relationship Specialty Start Date End Date Zhao Harris MD [address] [place] [address] PCP - General 12/03/20 documented as of this encounter
--- OUTSIDE RECORDS SUMMARY | 2024-11-26 10:00 | XMS_ITS | Encounter Summary ---
Author Organization [facility] Address [address] [place] [address] Care Team Providers Care Dormitory Counselor Name Role Phone Zhao Harris MD Primary Care Provider [phone] Reason for Visit * Reason Comments Consult Encounter Details Date Type Department Care Team (Latest Contact Info) Description 11/26/2024 10:00 AM EDT [facility] [address] [place] [address] Latoya Nunez N, REAL ESTATE FIRM MANAGER [address] [place] [address] Preop examination (Primary Dx) Social History Tobacco Use Types Packs/Day Years Used Date Smoking Tobacco: Every Day Cigarettes 1.5 15 Started: 1994 Passive Smoke Exposure: Current Smokeless Tobacco: Never Alcohol Use Standard Drinks/Week Comments Not Currently 6 (1 standard drink = 0.6 oz [...] drink first t manav in the morning (EYE-SOLID TIRE TUBER MACHINE OPERATOR) to steady your nerves or to [...] Sign Reading Time Taken Comments Blood Pressure 101/67 11/26/2024 9:51 AM EDT Pulse 54 11/26/2024 9:51 AM EDT Temperature 36.7 C (98.1 F) 11/26/2024 9:51 AM EDT Respiratory Rate - - Oxygen Saturation 97% 11/26/2024 9:51 AM EDT Inhaled Oxygen Concentration - - Weight 88.2 kg (194 lb 7.1 oz) 11/26/2024 9:51 A M EDT Height 170.2 cm (5' 7.01 ) 11/26/2024 9:51 AM ED T Body Mass Index 30.45 11/26/2024 9:51 AM EDT documented in this encounter Miscellaneous Notes * H&P - Latoya Nunez, ESTRELLA - 11/26/2024 10:00 AM EDT Images from the original note were not included. Hugo Lyons presents today for consultation as requested by Isaura Wynn, regarding assessmentof vascular access Subjective History of Present Illness: HPI Hugo Lyons is a 69 y.o. year old male with HTN and myeldysplastic syndrome/acute myeloid leukemia who presents for preop evaluation for vascular access, port placement. In 2019 he was found to have thrombocytopenia. 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 The biopsy revealed 15-17% blasts, multilineage dysplasia, and no fibrosis or ring sideroblasts. Flow cytometry showed 17% myeloblasts expressing CD34,CD117, CD13, and variably CD33. Cytogenetics and FLT3/NPM1 testing were normal. He had Cycle 1 azaci tidine/venetoclax 10/20/24. Bone marrow biopsy after cycle 1 shows 40-50% blasts. He had cycle 2 on 11/18/24. He is followed by hematology with plan CBC x three times/week and transfuse PRBCs if Hb < 7 or platelets < 10. He denies history of central access, DVTs, or surgical intervention to head, neck or chest. Pt denies fever, chills, nausea, vomiting, or abdominal pain. He does report left leg redness and small wound that is becoming more red, painful, and swollen. He states he had his pants tucked in his muck boots and noted pain. 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 Allergies: Patient has no known allergies. Medications: Current Medications[1] Past Surgical History: Hugo has a past surgical history that includes Total knee arthroplasty (Right). Past Medical History: He has a past medical history of Arteriosclerotic cardiovascular disease, Chronic stable angina (CMS/HCC), and Hypertension. Past Family History: Hisfamily history includes Diabetes in an other family member; Heart attack in an other family member. Past Social History: He reports that he has been smoking cigarettes. He started smoking about 30 years ago. He has a 22.5 pack-year smoking history. He has been exposed to tobacco smoke. He has never used smokeless tobacco. He reports that he does not currently use alcohol after a past usage of about 6.0 standard drinks of alcohol per week. He reports that he does not use drugs. Review of Systems: Review of Systems 14 point ROS negative except for above. Objective Physical Exam: Vitals: 11/26/24 0951 BP: 101/67 Pulse: 54 Temp: 36.7 ??C (98.1 ??F) SpO2: 97% Physical Exam Constitutional: Appearance: Normal appearance. Eyes: Pupils: Pupils are equal, round, and reactive to light. Cardiovascular: Rate and Rhythm: Regular rhythm. Pulmonary: Effort: Pulmonary effort is normal. Abdominal: Palpations: Abdomen is soft. Skin: General: Skin is warm. Neurological: General: No focal deficit present. Mental Status: He is alert and oriented to person, place, and time. Psychiatric: Mood and Affect: Mood normal. Behavior: Behavior normal. Imaging: XR Chest 1 View Narrative: CLINICAL INDICATION: soa TECHNIQUE: XR CHEST 1 VIEW COMPARISON: None. FINDINGS: Lungs are clear. Heart and mediastinal contours are within normal limits. No pneumothorax. No pleural effusion. Bony structures are unremarkable. Impression: Unremarkable chest examination. CRITICAL RESULT: No. COMMUNICATION: Per this written report. Drafted by Hernandez Cotter MD on 11/03/2024 4:26 PM Final report signed by Hernandez Cotter MD on 11/03/2024 4:[address] Head wo IV Contrast Narrative: CLINICAL INDICATION: Headache, fever TECHNIQUE: Spiral axial [...] intracranial hemorrhage or large mass on this noncontraststudy. There is a mild amount of non-specific but likely ischemic white matter lesions. Soft Tissues: No significant soft tissue swelling is present. Skull: There are no calvarial destructive lesions or fractures. Sinuses and Mastoids: The visualized portions of the paranasal sinuses are clear. The mastoid air cells are clear. Impression: No acute intracranial abnormality. CRITICAL RESULT: No. COMMUNICATION: Per this written report. Drafted by Beny Ricketts MD on 11/03/2024 4:00 PM Final report signed by Beny Ricketts MD on 11/03/2024 4:09 PM Labs: Labs in chart were reviewed. Lab Results Component Value Date WBC 0.76 (LL) 11/24/2024 HGB 8.0 (L) 11/24/2024 HCT 22.3 (L) 11/24/2024 PLT 43 (L) 11/24/2024 Lab Results Component Value Date NA 138 11/24/2024 K 3.7 11/24/2024 CL 107 11/24/2024 CO2 22 11/24/2024 BUN 13 11/24/2024 CREATININE 0.97 11/24/2024 GLUCOSE 97 11/24/2024 Lab Results Component Value Date CALCIUM 9.5 11/24/2024 MG 2.0 10/22/2024 PHOS 3.9 10/22/2024 Lab Results Component Value Date AST 18 11/24/2024 ALT 20 11/24/2024 ALKPHOS 71 11/24/2024 Lab Results Component Value Date APTT 29 09/29/2024 INR 1.0 09/29/2024 Assessment/Plan Myeldysplastic syndrome/acute myeloid leukemia - Found to have thrombocytopenia in 2019 - He had bone marrow biopsy in Aug 2024 with 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 The biopsy revealed 15-17% blasts, multilineage dysplasia, and no fibrosis or ring sideroblasts. Flow cytometry showed 17% myeloblasts expressing CD34, CD117, CD13, and variably CD33. Cytogenetics and FLT3/NPM1 testing were normal. - Cycle 1 azacitidine/venetoclax 10/20/24. - Bone marrow biopsy after cycle 1 shows 40-50% blasts. - Cycle 2 on 11/18/24. - He is followed by hematology with plan CBC x three times/week and transfuse PRBCs if Hb < 7 orplatelets < 10. PLAN: - Dicussed following with PCP or hematology regarding left leg wound, picture loaded in media - Will need to be transfused 1 unit of platelets Use only leukoreduced and irradiated blood products. - Pt is a [employer] with cattle, discussed neutropenic precautions, risk for infection, bleeding, and malposition with activities. - Will perform port placement on 12/01 - Denies anticoagulation - NPO at 0000 prior to procedure - Consent obtained Thank you for allowing me to participate in the care of Hugo Lyons. Latoya Nunez APRN Vascular & Interventional Radiology [1] Current Outpatient Medications: acyclovir (Zovirax) 800 MG tablet, Take 1 tablet (800 mg) by mouth in the morning and 1 tablet (800mg) before bedtime., Disp: 60 tablet, Rfl: 3 bisoprolol (Zebeta) 5 MG tablet, Take 1 tablet (5 mg) by mouth daily., Disp: 90 tablet, Rfl: 3 HYDROcodone-acetaminophen (Spray) 5-325 MG tablet, Take 1 tablet by mouth every 6 hours as needed.,Disp: , Rfl: hydrocortisone 2.5 % cream, Apply 1 Application topically as needed., Disp: , Rfl: nicotine (Nicoderm CQ) 21 MG/24HR patch, Place [...] daily. Days 1-14, Disp: 14 tablet, Rfl:0 amLODIPine (Norvasc) 2.5 MG tablet, Take 1 tablet (2.5 mg) by mouth daily. (Patient not taking: Reported on 11/26/2024), Disp: 90 tablet, Rfl: 3 aspirin 81 MG chewable tablet, Chew 1 tablet (81 mg) 1 (one) time each day. aspirin 81 mg tablet (Patient not taking: Reported on 11/26/2024), Disp: 30 tablet, Rfl: 11 isosorbide mononitrate ER (Imdur) 30 MG 24 hr tablet, Take 1 tablet (30 mg) by mouth daily. Do not crush or chew. (Patient not taking: Reported on 11/26/2024), Disp: 30 tablet, Rfl: 11 levoFLOXacin (Levaquin) 500 MG tablet, Take 1 tablet (500 mg) by mouth daily. (Patient not taking: Reported on 11/26/2024), Disp: 30 tablet, Rfl: 3 * Delaney العراقي RN - 11/26/2024 9:50 AM EDT Images from the original note were not included. [id number] Vascular Access Port Implantation Port implantation is surgery to place (implant) a port under the skin. For vascular access, it's placed into a vein. The port allows medicines or nutrition to be sent right into your bloodstream. Blood can also be taken or given through the port. To use the port, a special needle is passed through your skin and into the port. The needle can stay in your skin for up to 7 days, if needed. A port can stay in place for weeks, months, or longer. Why is a vascular access port needed? A vascular access port may allow healthcare providers to give you: ?? Chemotherapy or other cancer-fighting medicines ?? IV (intravenous) treatments, such as antibiotics or nutrition ?? Hemodialysis for kidney failure ?? Long-term intravenous (IV) feeding for nutritional support ?? Blood transfusions The port may also be used to draw blood. Before the procedure Follow any instructions you are given on how to get ready. Tell your provider about any medicines you are taking. This includes: ?? All prescription medicines, especially blood thinners ?? Mbmz-luy-rqyqgpz medicines such as aspirin or ibuprofen ?? Herbs, vitamins, and other supplements ?? If you are a smoker Also be sure your healthcare provider knows: ?? If you are or think you may be ?? If you are allergic to any medicines or substances, especially local anesthesia, iodine, or contrast materials ?? Your full health history, including why you will need the port. Also tell your provider if you have a condition that makes your blood more likely to form clots, have heart or chronic kidney disease, or acute renal failure. ?? If you plan on doing any contact sports During the procedure ?? Vascular access procedures are most often performed by a specially trained interventional radiologist. ?? Before the procedure, an IV may be put into a vein in your arm or hand. This gives you fluids and medicines. You may be given medicine through the IV to help you relax during the procedure. This is called sedation. There are some healthcare providers that prefer to place ports using general anesthesia, which means you will be comfortably asleep throughout the procedure. ?? The chest is used most often for the port. In some cases, your belly (abdomen) or arm will be used instead. ?? The skin over the insertion area is numbed with local anesthesia. ?? Ultrasound, X-rays, or both are used to help the healthcare provider guide the catheter into thecorrect place during the procedure. ?? A cut (incision) is made in the skin where the port will be placed. A small pocket for the port is formed under the skin. ?? A second small incision is made in the skin near the first incision. A tunnel under the skin is created. The catheter is put through the tunnel and into the blood vessel. ?? The skin is closed over the port. It's held shut with stitches or surgical glue or tape. The second small incision is also closed. ?? A chest X-ray may be done to make sure the port is in the correct position. After the procedure You will be taken to a postanesthesia care unit to be monitored by healthcare providers as you wakefrom anesthesia. If you have pain, nurses can give you medicine. If you are not staying in the hospital overnight, once you are stable, you will be sent home a few hours after the procedure is done. A healthcare provider will tell you when you can go home. Ask your discharge team for the Patient Information Card that identifies what kind of port was implanted. An adult family member or friend will need to drive you home. Recovering at home ?? Take pain medicine as directed by your healthcare provider. ?? Take it easy for 24 hours after the procedure. Don't do any physical activity or heavy lifting until your healthcare provider says it?s OK. ?? Keep the port site clean and dry. Ask when you can shower again. You will need to keep the incision dry until it heals by covering it when you shower. ?? Alternatively, you may try sponge bathing around the catheter site for the first few days. You should not allow the incision to be submerged in water, such as by soaking in a tub. ?? Care for the insertion site as you are directed. ?? Don?t swim, bathe, or do other activities that cause water to cover the insertion site. ?? Your port needs to be flushed at least every 4 to 6 weeks to keep it from getting blocked with blood clots. Talk with your healthcare provider about who will do this for you. ?? In some cases, you may be taught how to flush it yourself. ?? If necessary, your healthcare team will give you specific instructions about the care of your port and how to reduce the risks of infection. ?? You should have been given a Patient Information Card that identifies what kind of port you have. Keep this card with you at all times and give a copy to your partner or a close family member or friend. Ask your healthcare provider if this patient product information is also in your electronic medical record. These cards usually contain the following information: o Type of port o Product number o Physician?s name and contact information o Implant site o Flushing protocol (if applicable) ?? Wear a medical alert bracelet that identifies you as having a port. Risks and possible complications of implantation ?? Bleeding ?? Infection of the insertion site ?? Damage to a blood vessel ?? Nerve injury or irritation ?? Skin breakdown over the port ?? Rarely, collapsed lung (for chest port placements) ?? Cardiac complications occur when the catheter tip is placed incorrectly ?? Thrombosis of the catheter tip ?? Air embolism Risks and possible complications of having a port ?? Blocked port or catheter ?? Leakage or breakage of the port or catheter ?? The port moving out of position ?? Blood clot ?? Skin or bloodstream infection ?? Skin breakdown over the port When to call your healthcare provider Call your healthcare provider or seek medical care right away if you have any of the following: ?? A fever of 100.4?? F ( 38.0??C) or higher, or as directed by your healthcare provider ?? Chills ?? Swelling, bleeding, or a collection of blood (hematoma) around the port insertion site ?? Skin near the port that is red, warm, swollen, or broken ?? Shoulder pain or arm numbness, weakness, or tingling on the side where the port is located ?? You feel a heart flutter or racing heart ?? Swollen arm, if the port is placed in your arm ?? Cough, shortness of breath, or trouble taking a full, deep breath (Call 911) ?? The catheter gets accidentally dislodged Last Reviewed Date: 2024 00:00:00 ?? 7211-1221 [employer]. All rights reserved. This information is not intended as a substitute for professional medical care. Always follow your healthcare professional's instructions. documented in this encounter Plan of Treatment Upcoming Encounters Date Type Department Care Team ([facility] st Contact Info) Description 01/13/2025 9:30 AM EDT Clinical Support [facility] Hematology/BMT and Cellular Therapy Program [address] [phone] 01/13/2025 10:00 AM EDT Office Visit [facility]/BMT and Cellular Therapy Program [address] [phone] Isaura Wynn, REAL ESTATE FIRM MANAGER 800 [facility] [address] [place] [phone] 01/13/2025 11:30 AM EDT Appointment [facility] [address] [place] [address] 01/14/2025 2:00 PM EDT Appointment [facility] [address] [place] [address] 01/15/2025 2:00 PM EDT Appointment [facility] [address] [place] [address] 01/16/2025 2:00 PM EDT Appointment [facility] [address] [place] [address] 01/17/2025 2:00 PM EDT Appointment [facility] [address] [place] [address] 01/18/2025 2:00 PM EDT Appointment [facility] [address] [place] [address] 01/19/2025 2:00 PM EDT Appointment [facility] [address] [place] [address] 03/10/2025 11:20 AM EDT Office Visit [facility] Head, Neck & Respiratory 800 [facility], [address]nd [place] [address] Elsa Razo, REAL ESTATE FIRM MANAGER [address] [place] [address] documented as of this encounter Results * Protime-INR (11/26/2024 10:51 AM EDT) Prothrombin Time 13.8 12.0 - 14.3 sec LAB COAGULATION METHOD 11/26/2024 11:52 AM EDT [facility] INR 1.1 0.9 - 1.1 LAB COAGULATION METHOD 11/26/2024 11:52 AM EDT [facility] Blood Venous blood specimen / Unknown Venipuncture / Unknown 11/26/2024 10:51 AM EDT 11/26/2024 10:51 AM EDT Narrative [facility] - 11/26/2024 11:52 AM EDT OPTIMAL INR RANGES FOR PATIENT ON ORAL ANTICOAGULANT THERAPY Prevention of venous thromboembolism INR 2.0 to 3.0 In patients with heart disease: Atrial fibrillation INR 2.0 to 3.0 Valvular heart disease INR 2.0 to 3.0 Tissue heart valves INR 2.0 to 3.0 Mechanical prosthetic valves INR 2.5 to 3.5 Prevention of recurrent [place] INR 2.5 to 3.5 us Latoya Nunez REAL ESTATE FIRM MANAGER LAB BLOOD ORDERABLES Final R esult [facility] [address] [place] [address] documented in this encounter Visit Diagnoses Diagnosis Preop examination- Primary Unspecified pre-operative examination documented in this encounter Additional Health Concerns Assessment Noted Time PHQ-9 Depression Total Score: 0 09/11/19 25 9:15 AM EST A fall risk assessment has been complete d for the patient 11/26/2024 9:55 AM EDT A Body Mass Index follow-up plan has been documented for the patient 11/26/2024 11:25 AM EDT documented as of this encounter Care Teams Dormitory Counselor Relationship Specialty Start Date End Date Zhao Harris MD [address] [place] [address] PCP - General 12/03/20 documented as of this encounter
--- OUTSIDE RECORDS SUMMARY | 2024-12-01 08:41 | XMS_ITS | Encounter Summary ---
Author Organization [facility] Address [address] [place] [address] Care Team Providers Care Molding Machine Setter Name Role Phone Zhao Harris MD Primary Care Provider [phone] Reason for Referral * Consultation (Routine) - Closed Specialty Diagnoses / Procedures Referred By Contact Referred To Contact Interventional Radiology Diagnoses Myelodysplasia (myelodysplastic syndrome) (CMS/HCC) Mckinley Lee MD [address] [place] [address] Phone: tel:[phone] fax:[phone] [facility] Vascular Interventional Radiology [address] [place] [address] Phone: tel: Referral ID Status Reason Start Date Expiration Date V isits Requested Visits Authorized [id number] Closed Specialty Services Required 12/01/2024 06/02/2026 1 1 * Imaging (Routine) - Closed Specialty Diagnoses / Procedures Referred By Justice mcgee Referred To Contact Radiology Diagnoses Myelodysplasia (myelodysplastic syndrome) (CMS/HCC) Procedures IR Port Placement 5+ Years Consult to Interventional Radiology Isaura Wynn APRN 800 [facility] [address] [place] [address] Phone: tel: fax: Referral ID Status Reason Start Date Expiration Date Visits Re quested Visits Authorized [id number] Closed 11/18/2024 05/20/2026 1 1 Reason for Visit * Imaging (Routine) - Closed Specialty Diagnoses / Procedures Referred By Justice mcgee Referred To Contact Radiology Diagnoses Myelodysplasia (myelodysplastic syndrome) (CMS/HCC) Procedures IR Port Placement 5+ Years Consult to Interventional Radiology Isaura Wynn APRN 800 [facility] [address] [place] [address] Phone: tel: fax: Referral ID Status Reason Start Date Expiration Date Visits Re quested Visits Authorized [id number] Closed 11/18/2024 05/20/2026 1 1 Encounter Details Date Type Department Care Team (Latest Contact Info) Description 12/01/2024 8:41 AM EDT - 12/01/2024 11:59 PM EDT Hospital Encounter [facility] A Interventional Radiology [address] [place] [address] Gela Singer Thrombocytopenia (CMS/HCC) (Primary Dx); Myelodysplasia [...] drink first t manav in the morning (EYE-LEG ASSEMBLER) to steady your nerves or to get [...] call: Vascular & Interventional Radiology Clinic at [phone] Sunday - Sunday 8:00 AM to 4:30 PM After hours, weekends, and holidays please call [phone] and ask for the Interventional Radiology provider/Resident on-call For Emergencies please go to the nearest Emergency Room or dial 911. Intervention Radiology Appointments: If you need to reschedule a procedure, please call our Schedulers at [phone], option 4. If you need to schedule or reschedule a clinic appointment, please call [phone]. [facility] Vascular and Interventional Radiology Clinic [facility] [address] [place] [address] documented in this encounter Medications at Time of Discharge acyclovir (Zovirax) 800 MG tabletIndications :Myelodysplasia (myelodysplastic syndrome) (CMS/HCC) Take 1 tablet (800 mg) by mouth in the morning and 1 tablet (800 mg) before bedtime. 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 Call the [facility] Hematology Program Clinic if this is not set up. ?? What is used to flush it? It will be flushed with NS and Heparin flush. ?? Where will this happen? Either home health will come to you or you will go to the Infusion Center or the [facility] Clinic. Here is some contact information [...] Radiology Brief Postprocedure Note Attending: Dr. Lee Wet Char Conveyor Tender: Dr. Hernandez Pre-operative Diagnosis: AML, need for [...] been discussed with the patient and/or their data entry representative. All questions answered and they agree [...] daily., Disp: 90 tablet, Rfl: 3 HYDROcodone-acetaminophen (Burt) 5-325 MG tablet, Take 1 tablet by [...] Upcoming Encounters Date Type Department Care Team ([facility] Contact Info) Description 01/13/2025 9:30 AM EDT Clinical Support [facility] Hematology/BMT and Cellular Therapy Program [address] [address] 01/13/2025 10:00 AM EDT Office Visit [facility] Hematology/BMT and Cellular Therapy Program [address] [address] Isaura Wynn APRN 800 [facility] [address] [place] [address] 01/13/2025 11:30 AM EDT Appointment PAV H Infusion [address] [place] [address] 01/14/2025 2:00 PM EDT Appointment [facility] H Infusion [address] [place] [address] 01/15/2025 2:00 PM EDT Appointment [facility] H Infusion [address] [place] [address] 01/16/2025 2:00 PM EDT Appointment [facility] H Infusion [address] [place] [address] 01/17/2025 2:00 PM EDT Appointment [facility] H Infusion [address] [place] [address] 01/18/2025 2:00 PM EDT Appointment [facility] H Infusion [address] [place] [address] 01/19/2025 2:00 PM EDT Appointment [facility] H Infusion [address] [place] [address] 03/10/2025 11:20 AM EDT Office Visit Pav CC Head, Neck & Respiratory 800 [facility], [address]nd [place] [address] Elsa Razo, RETAIL ACCOUNT REPRESENTATIVE [address] [place] [address] Scheduled Referrals Name Type Priority Associated Diagnoses [...] INTERPRETATION Routine 12/01/2024 10:37 AM EDT Thrombocytopenia ([facility]) WBC DIFFERENTIAL Routine 12/01/2024 9:39 AM EDT [...] Postprocedural monitoring for 30 minutes Follow-up in [facility] in 1 week Line is ready for [...] for port placement. New AML, starting chemotherapy. Auto Parts Professional: Mckinley Lee MD Secondary Physical Medicine Teacher: Dr. David Holt Rad Dose: 6 mGy [...] was placed supine on the fluoro table. Family Nurse ultrasonography revealed the vein to be compressible [...] with no evidence of complication. Device: 6 Botswanan port catheter cut to length of 25 cm. COMPARISON: None. FINDINGS: Patent R IJV COMPLICATION: No. Procedure Note Mckinley Lee MD - 12/02/2024 CLINICAL INDICATION: 69M here for port placement. New AML, starting chemotherapy. Auto Parts Professional: Mckinley Lee MD Secondary Physical Medicine Teacher: Dr. David Holt Rad Dose: 6 mGy [...] patient was placed supine on the fluoro table.Family Nurse ultrasonography revealed the vein to be compressible [...] well with no evidence ofcomplication. Device: 6 Botswanan port catheter cut to length of 25 [...] MD on 12/02/2024 7:02 AM Isaura Wynn RETAIL ACCOUNT REPRESENTATIVE IMG IR PROCEDURES Final Result * Transfuse [...] 10:37 AM EDT 12/02/2024 8:50 AM EDT Juwan Horton MD LAB BLOOD BANK TEST ORDERAB LES Final Result BLOOD BANK [address] [place] [address], * (ABNORMAL) WBC Differential (12/01/2024 9:39 AM EDT) Differential Type Automated LAB HEMATOLOGY METHOD 12/01/2024 11:33 AM EDT [facility] Neutrophils % 9 % LAB HEMATOLOGY METHOD 12/01/2024 11:33 AM EDT [facility] Lymphocytes % 84 % LAB HEMATOLOGY METHOD 12/01/2024 11:33 AM EDT [facility] Monocytes % 6 % LAB HEMATOLOGY METHOD 12/01/2024 11:33 AM EDT [facility] Eosinophils % 1 % LAB HEMATOLOGY METHOD 12/01/2024 11:33 AM EDT [facility] Basophils % 0 % LAB HEMATOLOGY METHOD 12/01/2024 11:33 AM EDT [facility] Immature Granulocytes % 0 % LAB HEMATOLOGY METHOD 12/01/2024 11:33 AM EDT [facility] Immature Granulocytes Absolute 0.00 0.00 - 0.06 10*3/uL LAB HEMATOLOGY METHOD 12/01/2024 11:33 AM EDT [facility] Neutrophils Absolute 0.06(LL) 1.60 - 6.10 10*3/uL LAB HEMATOLOGY METHOD 12/01/2024 11:33 AM EDT [facility] Lymphocytes Absolute 0.59(L) 1.20 - 3.90 10*3/uL LAB HEMATOLOGY METHOD 12/01/2024 11:33 AM EDT [facility] Monocytes Absolute 0.04(L) 0.30 - 0.90 10*3/uL LAB HEMATOLOGY METHOD 12/01/2024 11:33 AM EDT [facility] Basophils Absolute 0.00 0.00 - 0.10 10*3/uL LAB HEMATOLOGY METHOD 12/01/2024 11:33 AM EDT [facility] Eosinophils Absolute 0.01 0.00 - 0.50 10*3/uL LAB HEMATOLOGY METHOD 12/01/2024 11:33 AM EDT [facility] Blood Venous blood specimen / Unknown Venipuncture / Unknown 12/01/2024 9:39 AM EDT 12/01/2024 9:56 AM EDT us Virgen Vargas MD LAB BLOOD ORDERABLES Final Re sult [facility] [address] [place] [address] * (ABNORMAL) CBC (12/01/2024 9:39 AM EDT) WBC Count 0.64(LL) 3.70 - 10.30 10*3/uL LAB HEMATOLOGY METHOD 12/01/2024 4:21 PM EDT [facility] RBC Count 2.29(L) 4.60 - 6.10 10*6/uL LAB HEMATOLOGY METHOD 12/01/2024 4:21 PM EDT [facility] HGB 7.6(L) 13.7 - 17.5 g/dL LAB HEMATOLOGY METHOD 12/01/2024 4:21 PM EDT [facility] HCT 20.9(L) 40.0 - 51.0 % LAB HEMATOLOGY METHOD 12/01/2024 4:21 PM EDT [facility] Platelet Count 14(LL) 155 - 369 10*3/uL LAB HEMATOLOGY METHOD 12/01/2024 4:21 PM EDT [facility] MCV 91 79 - 98 fL LAB HEMATOLOGY METHOD 12/01/2024 4:21 PM EDT [facility] MCH 33.2(H) 26.0 - 32.0 pg LAB HEMATOLOGY METHOD 12/01/2024 4:21 PM EDT [facility] MCHC 36.4(H) 30.7 - 35.5 g/dL LAB HEMATOLOGY METHOD 12/01/2024 4:21 PM EDT [facility] RDW 17.7(H) 11.5 - 14.5 % LAB HEMATOLOGY METHOD 12/01/2024 4:21 PM EDT [facility] MPV LAB HEMATOLOGY METHOD 12/01/2024 4:21 PM EDT [facility] Comment:Not Measured nRBC 0.0 <=0.0 per 100 WBCs LAB HEMATOLOGY METHOD 12/01/2024 4:21 PM EDT [facility] Blood Venous blood specimen / Unknown Venipuncture / Unknown 12/01/2024 9:39 AM EDT 12/01/2024 9:56 AM EDT Mckinley Lee MD LAB BLOOD ORDERABLES Final R esult Performing Organization Address City/[facility] Co de Phone Number [facility] [address] [place] [address] * Prepare Leukocyte Reduced Platelets: 1 Units, Irradiated (12/01/2024 8:52 AM EDT) Product Code [id number] CH BLOO D BANK Dispense Status Transfused BLOOD BANK Blood Expiration Date [id number] BLOOD BANK Unit Number [id number] CH B LOOD BANK Product Blood Type 6200 BLOOD BANK Blood Type A+ BLOOD BANK Blood Venous blood specimen / Unknown Mckinley Lee MD BLOOD BANK PRODUCT ORDERABLE S Final Result Performing Organization Address [facility] Phone Number BLOOD BANK [address] documented in this encounter Visit Diagnoses [...] mL Right Neck lidocaine-EPINEPHrine (Xylocaine W/EPI) 1 %-1:793280 injection As needed, Starting on Sun12/01/24 at [...] documented as of this encounter Care Teams Molding Machine Setter Relationship Specialty Start Date End Date Zhao Harris MD [address] [place] [address] PCP - General 12/03/20 documented as of this encounter
--- OUTSIDE RECORDS SUMMARY | 2024-12-09 08:30 | XMS_ITS | Encounter Summary ---
Author Organization [facility] Address [address] [place] [address] Care Team Providers Care Engineering Designer Name Role Phone Zhao Harris MD Primary Care Provider [phone] Reason for Visit * Reason Comments Labs Nurse Visit Encounter Details Date Type Department Care Team ([facility] Contact Info) Description 12/09/2024 8:30 AM EDT Clinical Support PAV CC Hematology/BMT and Cellular Therapy Program [address] [place] [address] [place] [address] Social History Tobacco Use Types Packs/Day Years [...] drink first t manav in the morning (EYE-TRUCK SUPERVISOR) to steady your nerves or to [...] Hematology/BMT and Cellular Therapy Program [address] [address] 01/13/2025 10:00 AM EDT Office Visit PAV CC Hematology/BMT and Cellular Therapy Program [address] [address] Isaura Wynn, SHOE REPAIRER HELPER 800 [facility] [address] [place] [address] 01/13/2025 11:30 AM EDT Appointment PAV H Infusion 800 [place] [address] 01/14/2025 2:00 PM EDT Appointment PAV H Infusion 800 [place] [address] 01/15/2025 2:00 PM EDT Appointment PAV H Infusion 800 [place] [address] 01/16/2025 2:00 PM EDT Appointment PAV H Infusion 800 [place] [address] 01/17/2025 2:00 PM EDT Appointment PAV H Infusion 800 [place] [address] 01/18/2025 2:00 PM EDT Appointment PAV H Infusion 800 [place] [address] 01/19/2025 2:00 PM EDT Appointment PAV H Infusion 800 [place] [address] 03/10/2025 11:20 AM EDT Office Visit Pav CC Head, Neck & Respiratory 800 [facility], 2nd [place] [address] Elsa Razo, SHOE REPAIRER HELPER 800 [place] [address] documented as of this encounter Visit Diagnoses [...] documented as of this encounter Care Teams Engineering Designer Relationship Specialty Start Date End Date Zhao Harris MD [facility] [address] PCP - General 12/03/20 documented as of this encounter
--- OUTSIDE RECORDS SUMMARY | 2024-12-09 09:00 | XMS_ITS | Encounter Summary ---
Author Organization [facility] Address [address] [place] [address] Care Team Providers Care Hatchery Manager Name Role Phone Zhao Harris MD Primary Care Provider + [phone] Reason for Visit * Reason Comments Procedure * Genetic Testing (Routine) - Authorized Specialty Diagnoses / Procedures Referred By Justice [email or web address] Referred To Contact Lab Diagnoses Myelodysplasia (myelodysplastic syndrome) (CMS/HCC) Procedures Leukemia/Lymphoma - Immunophenotyping by Flow Cytometry Virgen Vargas MD [address] [facility] [address] [address] Phone: tel: fax: Referral ID Status Reason Start Date Expiration Date V isits Requested Visits Authorized [id number] Authorized 11/18/2024 05/20/2026 1 1 Encounter Details Date Type Department Care Team (Latest Contact Info) Description 12/09/2024 9:00 AM EDT Procedure Visit [facility] Hematology/BMT and Cellular Therapy Program [address] [place] [address] Kierra Novak APRN [facility] [address] [address] Myelodysplasia (myelodysplastic syndrome) (CMS/HCC) Social [...] drink first t manav in the morning (EYE-NON DESTRUCTIVE EVALUATION TECHNICIAN) to steady your nerves or to [...] yes Risks discussed: Bleeding, infection and pain [place] protocol: Procedure explained and questions answered to [...] Upcoming Encounters Date Type Department Care Team ([facility] st Contact Info) Description 01/13/2025 9:30 AM EDT Clinical Support [facility] Hematology/BMT and Cellular Therapy Program [address] [phone] 01/13/2025 10:00 AM EDT Office Visit [facility] Hematology/BMT and Cellular Therapy Program [address] [address] Isaura Wynn APRN [address] [facility] [address] [place] [phone] 01/13/2025 11:30 AM EDT Appointment [facility] [address] [place] [address] 01/14/2025 2:00 PM EDT Appointment [facility] [address] [place] [address] 01/15/2025 2:00 PM EDT Appointment [facility] [address] [place] [address] 01/16/2025 2:00 PM EDT Appointment [facility] [address] [place] [address] 01/17/2025 2:00 PM EDT Appointment [facility] [address] [place] [address] 01/18/2025 2:00 PM EDT Appointment [facility] [address] [place] [address] 01/19/2025 2:00 PM EDT Appointment [facility] [address] [place] [address] 03/10/2025 11:20 AM EDT Office Visit [facility] Respiratory [address] [facility], [address] [place] [address] Elsa Razo, KNOT TYING OPERATOR [address] [place] [address] documented as of this encounter Procedures Procedure Name Priority Date/Time Associated Diagnosis Comments CYTOGENETICS TESTING, ONCOLOGY Routine 12/09/2024 10:15 AM EDT Myelodysplasia (myelodysplastic syndrome) ([facility]/HCC) CHROMOSOME KARYOTYPE, ONCOLOGY Routine 12/09/2024 10:15 AM EDT Myelodysplasia (myelodysplastic syndrome) ([facility]/HCC) LEUKEMIA/LYMPHOMA - IMMUNOPHENOTYPING BY FLOW CYTOMETRY Routine 12/09/2024 10:15 AM EDT Myelodysplasia (myelodysplastic syndrome) ([facility]/HCC) BONE MARROW EXAM Routine 12/09/2024 10:1 5 [...] were observed on this patient's previous specimen [id number] and indicate persistent disease. Clinical correlation is recommended. Note: Per [employer] (CAP) requirement additional karyotypes were performed [...] MD LAB CYTOGENETICS ORDERABLES F inal Result [facility] [address] [place] [address] * Leukemia/Lymphoma - Immunophenotyping by Flow Cytometry [...] surface light chains, CD123 12/10/2024 8:51 AM [facility] Disclaimer This test was developed and [...] appears on the report. 12/10/2024 8:51 AM [facility] Pathologist Signature Reviewed by: Gerry Jensen MD 12/10/2024 8:51 AM [facility] MRD Indicated Test Not Indicated 8:51 AM [facility] Bone Marrow Specimen from bone marrow obtained by aspiration / Unknown Non-blood Collection / Unknown 12/09/2024 10:15 AM EDT 12/09/2024 11:28 AM EDT us Virgen Vargas MD LAB FLOW CYTOMETRY ORDERABLES Final Result [facility] [address] [place] [address] * Bone marrow exam (12/09/2024 10:15 AM EDT) Case Report Bone Marrow Case: [id number] Authorizing Provider: Virgen Vargas MD Collected: 12/09/2024 1015 Ordering Location: [facility] Hematology/BMT and Received: 12/09/2024 1145 Cellular [...] were observed on this patient's previous specimen [id number] and indicate persistent disease. 12/19/2024 5:35 PM EDT [facility] Addendum electronically signed by Grery Jensen MD on 12/19/2024 at 1735 EDT [...] Platelets are decreased. 12/19/2024 5:35 PM EDT [facility] Bone Marrow Differential BONE MARROW [...] variable CD123, partial CD38, and moderate CD45 ([id number]). 12/19/2024 5:35 PM T [facility] Gross Description B. RIGHT A single specimen is received in formalin labeled bone marrow biopsy right posterior iliac crest and consists of 1 piece(s) of red/white tissue measuring 0.7 cm in length 0.2 cm in diameter. The specimen is submitted in to Histology for decalcification and routine processing. Cold Time: <1m 12/19/2024 5:35 PM T [facility] Note: A resident was involved in the service. I attest I examined the relevant preparations for the specimens and confirmed the diagnosis or interpretation. 12/19/2024 5:35 PM T [facility] Bone Marrow Peripheral [...] PATHOLOGY ORDERABLES Edit ed Result - Final [facility] [address] [place] [address] * BIOPSY BONE MARROW (12/09/2024 10:00 AM EDT) Narrative Kierra Novak APRN - 12/09/2024 10:00 AM EDT Kierra Novak APRN 12/09/2024 12:08 PM Biopsy bone marrow Date/Time: 12/09/2024 10:00 AM Performed by: Kierra Novak APRN Authorized by: Kierra Novak APRN Consent: Consent obtained: Written Consent given by: Patient Risks, benefits, and alternatives were discussed: yes Risks discussed: Bleeding, infection and pain [facility] protocol: Procedure explained and questions answered to [...] ORDERABLE S Final Result Performing Organization Address [facility] de Phone Number BLOOD BANK [address] * Morphology (12/09/2024 8:45 AM EDT) Elliptocytes/ Ovalocytes Present LAB HEMATOLOGY METHOD 12/09/2024 11:45 AM EDT [facility] RBC Morphology Slide Reviewed LAB HEMATOLOGY METHOD 12/09/2024 11:45 AM EDT [facility] Platelet Estimate Platelet smear estimate consistent with automated count LAB HEMATOLOGY METHOD 12/09/2024 11:45 AM EDT [facility] Blood Venous blood specimen / Unknown Venipuncture / Unknown 12/09/2024 8:45 AM EDT 12/09/2024 8:56 AM EDT Virgen Vargas MD LAB BLOOD ORDERABLES Final Re sult Performing Organization Address City/[facility]/ZIP Co de Phone Number [facility] [address] [place] [address] * (ABNORMAL) Manual Differential (12/09/2024 8:45 AM EDT) Blasts % 1 % LAB HEMATOLOGY METHOD 12/09/2024 11:45 AM EDT [facility] Promyelocytes % 0 % LAB HEMATOLOGY METHOD 12/09/2024 11:45 AM EDT [facility] Myelocytes % 0 % LAB HEMATOLOGY METHOD 12/09/2024 11:45 AM EDT [facility] Metamyelocytes % 0 % LAB HEMATOLOGY METHOD 12/09/2024 11:45 AM EDT [facility] Neutrophils % 10 % LAB HEMATOLOGY METHOD 12/09/2024 11:45 AM EDT [facility] Lymphocytes % 87 % LAB HEMATOLOGY METHOD 12/09/2024 11:45 AM EDT [facility] Reactive Lymphocytes % 0 % LAB HEMATOLOGY METHOD 12/09/2024 11:45 AM EDT [facility] Monocytes % 2 % LAB HEMATOLOGY METHOD 12/09/2024 11:45 AM EDT [facility] Eosinophils % 0 % LAB HEMATOLOGY METHOD 12/09/2024 11:45 AM EDT [facility] Basophils % 0 % LAB HEMATOLOGY METHOD 12/09/2024 11:45 AM EDT [facility] Blasts Absolute 0.01 10*3/UL LAB HEMATOLOGY METHOD 12/09/2024 11:45 AM EDT [facility] Promyelocytes Absolute 0.00 10*3/uL LAB HEMATOLOGY METHOD 12/09/2024 11:45 AM EDT [facility] Myelocytes Absolute 0.00 10*3/uL LAB HEMATOLOGY METHOD 12/09/2024 11:45 AM EDT [facility] Metamyelocytes Absolute 0.00 10*3/uL LAB HEMATOLOGY METHOD 12/09/2024 11:45 AM EDT [facility] Neutrophils Absolute 0.07(LL) 1.60 - 6.10 10*3/uL LAB HEMATOLOGY METHOD 12/09/2024 11:45 AM EDT [facility] Lymphocytes Absolute 0.59(L) 1.20 - 3.90 10*3/uL LAB HEMATOLOGY METHOD 12/09/2024 11:45 AM EDT [facility] Reactive Lymphocytes Absolute 0.00 10*3/uL LAB HEMATOLOGY METHOD 12/09/2024 11:45 AM EDT [facility] Monocytes Absolute 0.01(L) 0.30 - 0.90 10*3/uL LAB HEMATOLOGY METHOD 12/09/2024 11:45 AM EDT [facility] Eosinophils Absolute 0.00 0.00 - 0.50 10*3/uL LAB HEMATOLOGY METHOD 12/09/2024 11:45 AM EDT [facility] Basophils Absolute 0.00 0.00 - 0.10 10*3/uL LAB HEMATOLOGY METHOD 12/09/2024 11:45 AM EDT [facility] Blood Venous blood specimen / Unknown Venipuncture / Unknown 12/09/2024 8:45 AM EDT 12/09/2024 8:56 AM EDT Virgen Vargas MD LAB BLOOD ORDERABLES Final Re sult Performing Organization Address City/[facility]/ZIP Co de Phone Number [facility] [address] [place] [address] * Peripheral blood smear, pathologist interpretation (12/09/2024 8:45 AM EDT) Pathologist [facility] Clinical Diagnosis, Peripheral Smear AML under therapy [...] ORDERABLES Terri l Result Performing Organization Address City/[facility]/ZIP Co de Phone Number [facility] [address] [place] [address] * (ABNORMAL) Comprehensive metabolic panel (12/09/2024 8:45 [...] Re sult [facility] [address] [place] [address] * (ABNORMAL) CBC and differential (12/09/2024 8:45 AM EDT) WBC Count 0.68(LL) 3.70 - 10.30 10*3/uL LAB HEMATOLOGY METHOD 12/09/2024 11:45 AM EDT [facility] RBC Count 2.34(L) 4.60 - 6.10 10*6/uL LAB HEMATOLOGY METHOD 12/09/2024 11:45 AM EDT [facility] HGB 7.5(L) 13.7 - 17.5 g/dL LAB HEMATOLOGY METHOD 12/09/2024 11:45 AM EDT [facility] HCT 20.6(L) 40.0 - 51.0 % LAB HEMATOLOGY METHOD 12/09/2024 11:45 AM EDT [facility] Platelet Count 24(L) 155 - 369 10*3/uL LAB HEMATOLOGY METHOD 12/09/2024 11:45 AM EDT [facility] MCV 88 79 - 98 fL LAB HEMATOLOGY METHOD 12/09/2024 11:45 AM EDT [facility] MCH 32.1(H) 26.0 - 32.0 pg LAB HEMATOLOGY METHOD 12/09/2024 11:45 AM EDT [facility] MCHC 36.4(H) 30.7 - 35.5 g/dL LAB HEMATOLOGY METHOD 12/09/2024 11:45 AM EDT [facility] RDW 17.1(H) 11.5 - 14.5 % LAB HEMATOLOGY METHOD 12/09/2024 11:45 AM EDT [facility] MPV 9.2 8.8 - 12.5 fL LAB HEMATOLOGY METHOD 12/09/2024 11:45 AM EDT [facility] nRBC 2.9(H) <=0.0 per 100 WBCs LAB HEMATOLOGY METHOD 12/09/2024 11:45 AM EDT [facility] Differential Type Manual LAB HEMATOLOGY METHOD 12/09/2024 11:45 AM EDT [facility] Blood Venous blood specimen [...] ORDERABLES Final Re sult [facility] [address] [place] [address] documented in this encounter Visit Diagnoses Diagnosis Myelodysplasia (myelodysplastic syndrome) (CMS/[facility]) Myelodysplastic syndrome, unspecified documented in this encounter Additional Health Concerns Assessment Noted Time PHQ-9 Depression Total Score: 0 09/11/19 25 9:15 AM EST A fall risk assessment has been complete d for the patient 11/26/2024 9:55 AM EDT A Body Mass Index follow-up plan has been documented for the patient 12/01/2024 12:34 PM EDT documented as of this encounter Care Teams Hatchery Manager Relationship Specialty Start Date End Date Zhao Harirs MD [address] [place] [address] PCP - General 12/03/20 documented as of this encounter
--- OUTSIDE RECORDS SUMMARY | 2024-12-09 13:30 | XMS_ITS | Encounter Summary ---
Author Organization [facility] Address [address] [place] [address] Care Team Providers Care Preparation Supervisor Canning Name Role Phone Zhao Harris MD Primary Care Provider [phone] Reason for Visit * Reason Comments Follow-up Encounter Details Date Type Department Care Team (Latest Contact Info) Description 12/09/2024 1:30 PM EDT Clinical Support [facility] Cancer Acute Treatment Clinic 800 [facility], 2nd [place] [phone] Myelodysplasia (myelodysplastic syndrome) (CMS/HCC) (Primary Dx); Thrombocytopenia (CMS/HCC) Social History Tobacco Use Types Packs/Day Years Used Date Smoking Tobacco: Every Day Cigarettes 1.5 15 Started: 1994 Passive Smoke Exposure: Current Smokeless Tobacco: Never Tobacco Cessation:Ready to Q uit: Not Asked; Counseling Given: No Alcohol Use Standard Drinks/Week Comments Not Currently [...] drink first t manav in the morning (EYE-NEUROLOGY PHYSICIAN) to steady your nerves or to get [...] Sign Reading Time Taken Comments Blood Pressure 130/73 12/09/2024 3:52 PM EDT MAP 92 Pulse 60 12/09/2024 3:52 PM EDT Temperature 36.9 C (98.4 F) 12/09/2024 3:52 PM EDT Respiratory Rate 18 12/09/2024 3:52 PM EDT Oxygen Saturation 98% 12/09/2024 3:52 PM EDT Inhaled Oxygen Concentration - - Weight 84 kg (185 lb 3 oz) 12/09/2024 12:49 PM E DT Height - - Body Mass Index 29 12/09/2024 8:57 AM EDT documented in this encounter Miscellaneous Notes * Clinician Note - Ni Polk RN - 12/09/2024 1:30 PM EDT Patient informed of blood product transfusion process. Patient informed of infusion reaction symptoms. Patient instructed to go to the nearest emergency room or call 911 in the event that infusion reaction symptoms present themselves after leaving the facility today. Patient instructed to call their primary oncology office for follow up, if needed, or for any questions regarding treatment. Patient verbally reported understanding the information provided documented in this encounter Plan of Treatment Upcoming Encounters Date Type Department Care Team ([facility] st Contact Info) Description 01/13/2025 9:30 AM EDT Clinical Support PAV CC Hematology/BMT and Cellular Therapy Program 750 [facility], [address] [place] [address] [place] [address] 01/13/2025 10:00 AM EDT Office Visit PAV CC Hematology/BMT and Cellular Therapy Program 750 [facility], [address] [place] [phone] Isaura Wynn, RUG CUTTER 800 [facility] [address] [place] [phone] 01/13/2025 11:30 AM EDT Appointment PAV H Infusion [address] [place] [address] 01/14/2025 2:00 PM EDT Appointment PAV H Infusion [address] [place] [address] 01/15/2025 2:00 PM EDT Appointment PAV H Infusion [address] [place] [address] 01/16/2025 2:00 PM EDT Appointment PAV H Infusion [address] [place] [address] 01/17/2025 2:00 PM EDT Appointment PAV H Infusion [address] [place] [address] 01/18/2025 2:00 PM EDT Appointment PAV H Infusion [address] [place] [address] 01/19/2025 2:00 PM EDT Appointment PAV H Infusion [address] [place] [address] 03/10/2025 11:20 AM EDT Office Visit Pav CC Head, Neck & Respiratory 800 [facility], [address]nd [place] [address] Elsa Razo, RUG CUTTER [address] [place] [phone] documented as of this encounter Procedures Procedure Name Priority Date/Time Associated Diagnosis Comments PREPARE RBC Routine 12/09/2024 1:17 PM EDT Myelodysplasia (myelodysplastic syndrome) (CMS/HCC) Thrombocytopenia (CMS/HCC) documented in this encounter Results * Transfuse RBC, Irradiated (12/09/2024 3:57 PM EDT) us Kayli Ospina PA BLOOD TRANSFUSION ORDERA BLES Final Result * Prepare Leukocyte Reduced RBC: 1 Units, Irradiated (12/09/2024 1:17 PM EDT) Product Code [id number] CH BLOO D BANK Dispense Status Transfused BLOOD BANK Blood Expiration Date [id number] BLOOD BANK Unit Number [id number] CH B LOOD BANK Product Blood Type 9500 BLOOD BANK Blood Type O- CH BLOOD BANK Crossmatch Compatible BLOOD BANK Other us Kayli CHIU BLOOD BANK PRODUCT ORDER VIKAS Final Result Performing Organization Address City/State/[facility] Co de Phone Number BLOOD BANK [address] [place], [place] [address] documented in this encounter Visit Diagnoses Diagnosis [...] documented as of this encounter Care Teams Preparation Supervisor Canning Relationship Specialty Start Date End Date Zhao Harris MD [address] [place] [address] PCP - General 12/03/20 documented as of this encounter
--- OUTSIDE RECORDS SUMMARY | 2024-12-11 08:30 | XMS_ITS | Encounter Summary ---
Author Organization [facility] Address [address] [place] [address] Care Team Providers Care Cigarette Machine Filler Name Role Phone Zhao Harris MD Primary Care Provider [phone] Reason for Visit * Reason Comments Nurse Visit Labs Encounter Details Date Type Department Care Team (Latest Contact Info) Description 12/11/2024 8:30 AM EDT Clinical Support [facility] CC Hematology/BMT and Cellular Therapy Program [address] [place] [address] [place] [address] Myelodysplasia (myelodysplastic syndrome) (CMS/HCC) Social History Tobacco [...] drink first t manav in the morning (EYE-STUDENT LIAISON OFFICER) to steady your nerves or to [...] Upcoming Encounters Date Type Department Care Team ([facility] st Contact Info) Description 01/13/2025 9:30 AM EDT Clinical Support [facility] CC Hematology/BMT and Cellular Therapy Program [address] [address] 01/13/2025 10:00 AM EDT Office Visit [facility] CC Hematology/BMT and Cellular Therapy Program [address] [address] Isaura Wynn, FIREFIGHTER TYPE ONE 800 [facility] [address] [place] [phone] 01/13/2025 11:30 AM EDT Appointment P[facility] H Infusion [address] [place] [address] 01/14/2025 2:00 PM EDT Appointment [facility] H Infusion [address] [place] [address] 01/15/2025 2:00 PM EDT Appointment [facility] H Infusion [address] [place] [address] 01/16/2025 2:00 PM EDT Appointment [facility] H Infusion [address] [place] [address] 01/17/2025 2:00 PM EDT Appointment [facility] H Infusion [address] [place] [address] 01/18/2025 2:00 PM EDT Appointment P[facility] H Infusion [address] [place] [address] 01/19/2025 2:00 PM EDT Appointment P[facility] H Infusion [address] [place] [address] 03/10/2025 11:20 AM EDT Office Visit Pav CC Head, Neck & Respiratory 800 [facility], 2nd [place] [address] Elsa Razo, FIREFIGHTER TYPE [employer] [address] [place] [address] documented as of this encounter Procedures Procedure [...] LAB HEMATOLOGY METHOD 12/11/2024 10:53 AM EDT [facility] RBC Morphology Slide Reviewed LAB HEMATOLOGY METHOD 12/11/2024 10:53 AM EDT [facility] Platelet Estimate Platelet smear estimate consistent with automated count LAB HEMATOLOGY METHOD 12/11/2024 10:53 AM EDT [facility] Blood Venous blood specimen / Unknown Venipuncture / Unknown 12/11/2024 8:38 AM EDT 12/11/2024 8:50 AM EDT Virgen Vargas MD LAB BLOOD ORDERABLES Final Re sult [facility] [address] [place] [address] * Peripheral blood smear, pathologist interpretation (12/11/2024 8:38 AM EDT) Clinical Diagnosis, Peripheral Smear History of acute myeloid leukemia (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 Dysplastic neutrophils (hypogranular) are noted. Moderate anemia and marked thrombocytopen ia. 12/11/2024 4:46 PM EDT [facility] Pathologist Signature, Peripheral Smear 12/11/2024 4:46 PM EDT [facility] Comment:Reviewed by: Omar Peralta MD Blood Venous blood specimen / Unknown Venipuncture / Unknown 12/11/2024 8:38 AM EDT 12/11/2024 8:50 AM EDT us Virgen Vargas MD LAB PATHOLOGY ORDERABLES Terri l Result [facility] [address] [place] [address] * (ABNORMAL) Manual Differential (12/11/2024 8:38 AM EDT) Pathologist [facility] Blasts % 1 % LAB HEMATOLOGY METHOD 12/11/2024 10:53 AM EDT [facility] Promyelocytes % 0 % LAB HEMATOLOGY METHOD 12/11/2024 10:53 AM EDT [facility] Myelocytes % 0 % LAB HEMATOLOGY METHOD 12/11/2024 10:53 AM EDT [facility] Metamyelocytes % 0 % LAB HEMATOLOGY METHOD 12/11/2024 10:53 AM EDT [facility] Neutrophils % 4 % LAB HEMATOLOGY METHOD 12/11/2024 10:53 AM EDT [facility] Lymphocytes % 90 % LAB HEMATOLOGY METHOD 12/11/2024 10:53 AM EDT [facility] Reactive Lymphocytes % 3 % LAB HEMATOLOGY METHOD 12/11/2024 10:53 AM EDT [facility] Monocytes % 2 % LAB HEMATOLOGY METHOD 12/11/2024 10:53 AM EDT [facility] Eosinophils % 0 % LAB HEMATOLOGY METHOD 12/11/2024 10:53 AM EDT [facility] Basophils % 0 % LAB HEMATOLOGY METHOD 12/11/2024 10:53 AM EDT [facility] Blasts Absolute 0.01 10*3/UL LAB HEMATOLOGY METHOD 12/11/2024 10:53 AM EDT [facility] Promyelocytes Absolute 0.00 10*3/uL LAB HEMATOLOGY METHOD 12/11/2024 10:53 AM EDT [facility] Myelocytes Absolute 0.00 [...] LAB HEMATOLOGY METHOD 12/11/2024 10:53 AM EDT [facility] Basophils Absolute 0.00 0.00 - 0.10 10*3/uL LAB HEMATOLOGY METHOD 12/11/2024 10:53 AM EDT [facility] Blood Venous blood specimen / Unknown Venipuncture / Unknown 12/11/2024 8:38 AM EDT 12/11/2024 8:50 AM EDT us Virgen Vargas MD LAB BLOOD ORDERABLES Final Re sult [facility] [address] [place] [address] * (ABNORMAL) CBC and differential (12/11/2024 8:38 AM EDT) WBC Count 0.61(LL) 3.70 - 10.30 10*3/uL LAB HEMATOLOGY METHOD 12/11/2024 10:54 AM EDT [facility] RBC Count 2.80(L) 4.60 - 6.10 10*6/uL LAB HEMATOLOGY METHOD 12/11/2024 10:54 AM EDT [facility] HGB 8.9(L) 13.7 - 17.5 g/dL LAB HEMATOLOGY METHOD 12/11/2024 10:54 AM EDT [facility] HCT 25.1(L) 40.0 - 51.0 % LAB HEMATOLOGY METHOD 12/11/2024 10:54 AM EDT [facility] Platelet Count 11(LL) 155 - 369 10*3/uL LAB HEMATOLOGY METHOD 12/11/2024 10:54 AM EDT [facility] MCV 90 79 - 98 fL LAB HEMATOLOGY METHOD 12/11/2024 10:54 AM EDT [facility] MCH 31.8 26.0 - 32.0 pg LAB HEMATOLOGY METHOD 12/11/2024 10:54 AM EDT [facility] MCHC 35.5 30.7 - 35.5 g/dL LAB HEMATOLOGY METHOD 12/11/2024 10:54 AM EDT [facility] RDW 16.2(H) 11.5 - 14.5 % LAB HEMATOLOGY METHOD 12/11/2024 10:54 AM EDT [facility] MPV 12.3 8.8 - 12.5 fL LAB HEMATOLOGY METHOD 12/11/2024 10:54 AM EDT [facility] nRBC 4.9(H) <=0.0 per 100 WBCs LAB HEMATOLOGY METHOD 12/11/2024 10:54 AM EDT [facility] Differential Type Manual LAB HEMATOLOGY METHOD 12/11/2024 10:54 AM EDT [facility] Blood Venous blood specimen / Unknown Venipuncture / Unknown 12/11/2024 8:38 AM EDT 12/11/2024 8:50 AM EDT [facility] - 12/11/2024 10:54 AM EDT [...] MD LAB BLOOD ORDERABLES Final Re sult [facility] [address] [place] [address] * (ABNORMAL) Comprehensive Metabolic Panel, Plasma (12/11/2024 8:38 AM EDT) Glucose, Plasma 105(H) 74 - 99 mg/dL 12/11/2024 9:19 AM EDT [facility] BUN, Plasma 10 8 - 23 mg/dL 12/11/2024 9:19 AM EDT [facility] Creatinine, Plasma 0.75 0.70 - 1.20 mg/dL 12/11/2024 9:19 AM EDT [facility] BUN/Creatinine Ratio 13 12/11/2024 9:19 AM EDT [facility] Sodium, Plasma 140 136 - 145 mmol/L 12/11/2024 9:19 AM EDT [facility] Potassium, Plasma 4.1 3.6 - 4.9 mmol/L 12/11/2024 9:19 AM EDT [facility] Chloride, Plasma 110(H) 97 - 107 mmol/L 12/11/2024 9:19 AM EDT [facility] CO2, Plasma 22 22 - 29 mmol/L 12/11/2024 9:19 AM EDT [facility] Anion Gap 8 6 - 16 mmol/L 12/11/2024 9:19 AM EDT [facility] Total Calcium, Plasma 9.1 8.9 - 10.2 mg/dL 12/11/2024 9:19 AM EDT [facility] Total Protein 6.9 6.3 - 7.9 g/dL 12/11/2024 9:19 AM EDT [facility] Albumin, Plasma 4.0 3.5 - 5.2 g/dL 12/11/2024 9:19 AM EDT [facility] AST, Plasma 38 10 - 50 U/L 12/11/2024 9:19 AM EDT [facility] ALT, Plasma 40 10 - 50 U/L 12/11/2024 9:19 AM EDT [facility] Alkaline Phosphatase, Plasma 86 40 - 115 U/L 12/11/2024 9:19 AM EDT [facility] Total Bilirubin, Plasma 0.6 0.2 - 1.1 mg/dL 12/11/2024 9:19 AM EDT [facility] eGFRcr 97.7 mL/min/1.7 3m*2 12/11/2024 9:19 AM EDT [facility] Comment:Reported eGFRcr in m L/min/1.73m2 is based the CKD-EPI 2020 equation that does not use a race coefficient. Blood Venous blood specimen / Unknown Venipuncture / Unknown 12/11/2024 8:38 AM EDT 12/11/2024 8:50 AM EDT Virgen Vargas MD LAB BLOOD ORDERABLES Final Re sult [facility] [address] [place] [address] documented in this encounter Visit Diagnoses Diagnosis [...] documented as of this encounter Care Teams Cigarette Machine Filler Relationship Specialty Start Date End Date Zhao Harris MD [address] [place], [place] [id number] PCP - General 12/03/20 documented as of this encounter
--- OUTSIDE RECORDS SUMMARY | 2024-12-11 09:00 | XMS_ITS | Encounter Summary ---
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) Virgen Vargas MD 800 [facility] Cancer [address] [address] Phone: tel: fax: Referral ID Status Reason Start Date Expiration Date V isits Requested Visits Authorized [id number] Closed Specialty Services Required 12/11/2024 06/12/2026 1 1 Encounter Details Date Type Department Care Team (Latest Contact Info) Description 12/11/2024 9:00 AM EDT Office Visit PAV CC Hematology/BMT and Cellular Therapy Program [address] [place] [phone] Virgen Vargas MD 800 [facility] Cancer [address] [address] Myelodysplasia (myelodysplastic syndrome) (CMS/HCC) (Primary [...] drink first t manav in the morning (EYE-TIMEKEEPING SUPERVISOR) to steady your nerves or to [...] a preserved mata-T cell profile with a CD4:OG8wfjbf of 2.7:1. Polyclonal B-cells (3%) and a small plasma cell population (0.6%) were also identified. Cytogenetics: Normal. Molecular Testing: PCR for NPM1 and FLT3 mutations are negative. Next-generation sequencing (NGS) myeloid panel: ASXL1 - p.[id number] - VAF 25% TP53 - p.[id number] - VAF 36% U2AF1 - p.[id number] - VAF 33% 10/20/2024- started treatment with [...] a durable remission in the context of PV07-voymmaz AML. The third, and most promising, option would be enrollment in a clinical trial, ideally one that targets TP53- mutant disease or incorporates novel agents. Unfortunately, there are no active trials available locally or at [facility], but I have reached out to Dr. Fernandes at [facility] to explore any opportunities there. We will [...] in completing the documentation. Virgen Vargas M.D. Toggler Division of Hematology/BMT [facility] [1] Current Outpatient Medications: acyclovir (Zovirax) 800 [...] constipation., Disp: 30 tablet, Rfl: 3 HYDROcodone-acetaminophen ([place]) 5-325 MG tablet, Take 1 tablet by [...] CC Hematology/BMT and Cellular Therapy Program 750 [facility], [address] [place] [address] [place] [address] 01/13/2025 10:00 AM EDT Office Visit PAV Hematology/BMT and Cellular Therapy Program 750 [facility], [facility] [place] [address] Isaura Wynn, SHEET METAL ERECTOR 800 [facility] [address] [place] [address] 01/13/2025 11:30 AM EDT Appointment PAV H Infusion 800 [place] [address] 01/14/2025 2:00 PM EDT Appointment PAV H Infusion 800 [place] [address] 01/15/2025 2:00 PM EDT Appointment P[facility] H Infusion 800 [place] [address] 01/16/2025 2:00 PM EDT Appointment P[facility] H Infusion [address] [place] [address] 01/17/2025 2:00 PM EDT Appointment PAV H Infusion 800 [place] [address] 01/18/2025 2:00 PM EDT Appointment P[facility] H Infusion 800 [place] [address] 01/19/2025 2:00 PM EDT Appointment PAV H Infusion 800 [place] [address] 03/10/2025 11:20 AM EDT Office Visit Pav Head, Neck & Respiratory 800 [facility], [address] [place] [phone] Elsa Razo, SHEET METAL ERECTOR 800 [place] [phone] documented as of this encounter Visit Diagnoses [...] documented as of this encounter Care Teams Physician Ophthalmologist Relationship Specialty Start Date End Date Zhao Harris MD [address] [place] [address] PCP - General 12/03/20 documented as of this encounter
--- OUTSIDE RECORDS SUMMARY | 2024-12-11 13:00 | XMS_ITS | Encounter Summary ---
Author Organization [facility] Address [address] [place] [address] Care Team Providers Care Student Outreach Coordinator Name Role Phone Zhao Harris MD Primary Care Provider [phone] Encounter Details Date Type Department Care Team (Latest Contact Info) Description 12/11/2024 1:00 PM EDT Clinical Support [facility] Cancer Acute Treatment [facility] [address] 2[address] [place] [address] Myelodysplasia (myelodysplastic syndrome) (CMS/HCC) (Primary Dx); Thrombocytopenia [...] drink first t manav in the morning (EYE-BREAKER UNIT ASSEMBLER) to steady your nerves or to [...] Support [facility] Hematology/BMT and Cellular Therapy Program [address] [place] [address] [place] [address] 01/13/2025 10:00 AM EDT Office Visit [facility] CC Hematology/BMT and Cellular Therapy Program 750 [facility], [address] [place] [address] Isaura Wynn, OPENER VERIFIER PACKER CUSTOMS 800 [facility] [address]st [place] [phone] 01/13/2025 11:30 AM EDT Appointment [facility] H Infusion 800 [place] [address] 01/14/2025 2:00 PM EDT Appointment [facility] H Infusion 800 [place] [address] 01/15/2025 2:00 PM EDT Appointment [facility] H Infusion 800 [place] [address] 01/16/2025 2:00 PM EDT Appointment [facility] H Infusion 800 [place] [address] 01/17/2025 2:00 PM EDT Appointment [facility] H Infusion 800 [place] [address] 01/18/2025 2:00 PM EDT Appointment [facility] H Infusion 800 [place] [address] 01/19/2025 2:00 PM EDT Appointment [facility] H Infusion 800 [place] [address] 03/10/2025 11:20 AM EDT Office Visit Pav CC Head, Neck & Respiratory 800 [facility], 2nd [place] [address] Elsa Razo, OPENER VERIFIER PACKER CUSTOMS 800 [place] [address] documented as of this encounter Procedures Procedure [...] LAB HEMATOLOGY METHOD 12/11/2024 2:37 PM EDT [facility] Blood Venous blood specimen / Unknown Venipuncture / Unknown 12/11/2024 2:04 PM EDT 12/11/2024 2:34 PM EDT Glenroy Kim MD LAB BLOOD ORDERABLES Fi nal Result Performing Organization Address City/[facility] Co de Phone Number [facility] 800 [place] [address] * Prepare Leukocyte Reduced Platelets: 1 Units (12/11/2024 12:57 PM EDT) Product Code [id number] CH BLOO D BANK Dispense Status Transfused BLOOD BANK Blood Expiration Date [id number] BLOOD BANK Unit Number [id number] B LOOD BANK Product Blood Type 6200 BLOOD BANK Blood Type A+ BLOOD BANK Blood Venous blood specimen / Unknown Kayli CHIU BLOOD BANK PRODUCT ORDER VIKAS Final Result Performing Organization Address City/[facility] Co de Phone Number BLOOD BANK [address] [place] [address] documented in this encounter Visit Diagnoses Diagnosis [...] documented as of this encounter Care Teams Student Outreach Coordinator Relationship Specialty Start Date End Date Zhao Harris MD [address] [place] [address] PCP - General 12/03/20 documented as of this encounter
--- OUTSIDE RECORDS SUMMARY | 2024-12-11 14:30 | XMS_ITS | Encounter Summary ---
Author Organization [facility] Address [address] [place] [address] Care Team Providers Care Razor Grinder Name Role Phone Zhao Harris MD Primary Care Provider [phone] Reason for Visit * Consultation (Routine) - Closed Specialty Diagnoses / Procedures Referred By Contact Referred To Contact Interventional Radiology Diagnoses Myelodysplasia (myelodysplastic syndrome) (CMS/HCC) Mckinley Lee MD [address] [place] [address] Phone: tel: fax:[phone] [facility] Vascular Interventional Radiology [address] [facility] Room [address] [place] [phone] Phone: tel: Referral ID Status Reason Start Date Expiration Date V isits Requested Visits Authorized [id number] Closed Specialty Services Required 12/01/2024 06/02/2026 1 1 Encounter Details Date Type Department Care Team (Latest Contact Info) Description 12/11/2024 2:30 PM EDT Office Visit [facility] Vascular Interventional Radiology [address] [facility] Room [address] [place] [phone] Judy Leung APRN, SHEEBA [address] [place] [address] Port-A-Cath in place (Primary Dx); [...] drink first t manav in the morning (EYE-CLINICAL ABSTRACTOR) to steady your nerves or to get [...] Orders * Progress Notes - Judy Leung, OFFICE ENGINEER, DNP - 12/11/2024 2:30 PM EDT Images [...] been accessed. He is being referred to [facility] for possible trials. Allergies: Patient has no [...] for port placement. New AML, starting chemotherapy. Group Product Manager: Mckinley Lee MD Secondary Biological Sciences Professor: Dr. David Holt Rad Dose: 6 mGy [...] placed supine on the fluoro table. Supervisor Special Education ultrasonography revealed the vein to be compressible [...] with no evidence of complication. Device: 6 Maltese port catheter cut to length of 25 [...] placement on 12/01/24 - Being referred to [facility] for possible trials PLAN: - Port accessed in clinic today and functioning well - Denies fever or chills; no drainage, swelling at site - Instructed to call with any signs of infection or malfunction - Return to [facility] PRN Medical Decision Making/Plan: Diagnoses and all orders for this visit: Port-A-Cath in place - heparin flush (porcine) 100 UNIT/ML injection 500 Units Myelodysplasia (myelodysplastic syndrome) (CMS/HCC) - Discharge Ambulatory referral to [facility] Clinic I spent 35 minutes on [...] daily., Disp: 90 tablet, Rfl: 3 HYDROcodone-acetaminophen ([place]) 5-325 MG tablet, Take 1 tablet by [...] PAV Hematology/BMT and Cellular Therapy Program [address] [address] 01/13/2025 10:00 AM EDT Office Visit [facility] Hematology/BMT and Cellular Therapy Program [address] [phone] Isaura Wynn APRN [address] [facility] 1[address] [place] [address] 01/13/2025 11:30 AM EDT Appointment PAV H Infusion [address] [place] [address] 01/14/2025 2:00 PM EDT Appointment P[facility] H Infusion [address] [place] [address] 01/15/2025 2:00 PM EDT Appointment PAV H Infusion [address] [place] [address] 01/16/2025 2:00 PM EDT Appointment P[facility] H Infusion [address] [place] [address] 01/17/2025 2:00 PM EDT Appointment P[facility] H Infusion [address] [place] [address] 01/18/2025 2:00 PM EDT Appointment P[facility] H Infusion [address] [place] [address] 01/19/2025 2:00 PM EDT Appointment PAV H Infusion [address] [place] [address] 03/10/2025 11:20 AM EDT Office Visit Pav CC Head, Neck & Respiratory 800 [facility], 2nd [place] [address] Elsa Razo, OFFICE ENGINEER [address] [place] [address] documented as of this encounter Procedures Procedure [...] 8:43 AM EDT us Judy Leung APRN, SHEEBA LAB BLOOD BANK TEST ZINA KIRAN Final Result Performing Organization Address City/State/[facility] Co de Phone Number BLOOD BANK [address] [place] [address], documented in this encounter Visit Diagnoses Diagnosis [...] documented as of this encounter Care Teams Razor Grinder Relationship Specialty Start Date End Date Zhao Harris MD [address] [facility] [address] [place] [address] PCP - General 12/03/20 documented as of this encounter
--- OUTSIDE RECORDS SUMMARY | 2024-12-16 08:00 | XMS_ITS | Encounter Summary ---
Author Organization [facility] Address [address] [place] [address] Care Team Providers Care Ems Coordinator Name Role Phone Zhao Harris MD Primary Care Provider [phone] Reason for Visit * Reason Comments Labs Nurse Visit Encounter Details Date Type Department Care Team ([facility] Contact Info) Description 12/16/2024 8:00 AM EDT Clinical Support PAV CC Hematology/BMT and Cellular Therapy Program [address] [place] [address] [place] [address] Social History Tobacco Use Types Packs/Day Years [...] drink first t manav in the morning (EYE-DONOR PROCESSOR) to steady your nerves or to get [...] Hematology/BMT and Cellular Therapy Program [address] [address] 01/13/2025 10:00 AM EDT Office Visit PAV CC Hematology/BMT and Cellular Therapy Program [address] [address] Isaura Wynn, TRAVEL RN OR 800 [facility] [address] [place] [address] 01/13/2025 11:30 AM EDT Appointment PAV H Infusion 800 [place] [address] 01/14/2025 2:00 PM EDT Appointment PAV H Infusion 800 [place] [address] 01/15/2025 2:00 PM EDT Appointment P[facility] H Infusion 800 [place] [address] 01/16/2025 2:00 PM EDT Appointment P[facility] H Infusion 800 [place] [address] 01/17/2025 2:00 PM EDT Appointment PAV H Infusion 800 [place] [address] 01/18/2025 2:00 PM EDT Appointment PAV H Infusion 800 [place] [address] 01/19/2025 2:00 PM EDT Appointment PAV H Infusion 800 [place] [address] 03/10/2025 11:20 AM EDT Office Visit Pav CC Head, Neck & Respiratory 800 [facility], 2nd [place] [address] Elsa Razo, TRAVEL RN OR 800 [place] [address] documented as of this encounter Visit Diagnoses [...] documented as of this encounter Care Teams Ems Coordinator Relationship Specialty Start Date End Date Zhao Harris MD [facility] [place] [id number] PCP - General 12/03/20 documented as of this encounter
--- OUTSIDE RECORDS SUMMARY | 2024-12-16 08:30 | XMS_ITS | Encounter Summary ---
Author Organization [facility] Address [address] [place] [address] Care Team Providers Care Hotel Office Manager Name Role Phone Zhao Harris MD Primary Care Provider [phone] Reason for Referral * Genetic Testing (Routine) - Authorized Specialty Diagnoses / Procedures Referred By Justice t Referred To Contact Lab Diagnoses Myelodysplasia (myelodysplastic syndrome) (CMS/HCC) Procedures Leukemia/Lymphoma - Immunophenotyping by Flow Cytometry Virgen Vargas MD [address] [facility] [address] [address] Phone: tel: fax: Referral ID Status Reason Start Date Expiration Date V isits Requested Visits Authorized [id number] Authorized 12/18/2024 06/19/2026 1 1 * Genetic Testing (Routine) - Authorized Specialty Diagnoses / Procedures [facility] Referred To Contact Lab Diagnoses Myelodysplasia (myelodysplastic syndrome) (CMS/HCC) Procedures Bone marrow exam Virgen Vargas MD [address] [facility] [address] [address] Phone: tel: fax: Referral ID Status Reason Start Date Expiration Date V isits Requested Visits Authorized [id number] Authorized 12/18/2024 06/19/2026 1 1 Reason for Visit * Reason Comments Acute Myeloid Leukemia Encounter Details Date Type Department Care Team (Latest Contact Info) Description 12/16/2024 8:30 AM EDT Office Visit [facility] CC Hematology/BMT and Cellular Therapy Program [address] [facility] [place] [address] Isaura Wynn, METAL FABRICATOR [address] [facility] [address] [place] [phone] Myelodysplasia (myelodysplastic syndrome) (CMS/HCC) (Primary Dx) Social [...] drink first t manav in the morning ([employer] TE[employer]) to steady your nerves or to get [...] Notes * Progress Notes - Isaura Wynn, METAL FABRICATOR - 12/16/2024 8:30 AM EDT HEMATOLOGY ONCOLOGY NOTE Patient ID: Hguo [place] is a 69 y.o. male. Referring [...] a preserved mata-T cell profile with a CD4:TB1zeozi of 2.7:1. Polyclonal B-cells (3%) and a small plasma cell population (0.6%) were also identified. Cytogenetics: Normal. Molecular Testing: PCR for NPM1 and FLT3 mutations are negative. 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 The third, and most promising, option would be enrollment in a clinical trial, ideally one that targets TP53- mutant disease or incorporates novel agents. Unfortunately, there are no active trials available locally or at [facility], but I have reached out to Dr. Fernandes at [facility] to explore any opportunities there. [...] daily., Disp: 90 tablet, Rfl: 3 HYDROcodone-acetaminophen ([place]) 5-325 MG tablet, Take 1 tablet by [...] History: N/A Plan: Venetoclax rx sent to [facility]. Refills due monthly. Patient will return to clinic in 4 weeks. Will follow-up at that time. documented in this encounter Plan of Treatment Upcoming Encounters Date Type Department Care Team ([facility] st Contact Info) Description 01/13/2025 9:30 AM EDT Clinical Support [facility] Hematology/BMT and Cellular Therapy Program [address] [place] [address] 01/13/2025 10:00 AM EDT Office Visit [facility] Hematology/BMT and Cellular Therapy Program [address] [phone] Isaura Wynn, METAL FABRICATOR [address] [facility] [address] [place] [phone] 01/13/2025 11:30 AM EDT Appointment [facility] Infusion [address] [place] [address] 01/14/2025 2:00 PM EDT Appointment [facility] [address] [place] [address] 01/15/2025 2:00 PM EDT Appointment [facility] [address] [place] [address] 01/16/2025 2:00 PM EDT Appointment [facility] [address] [place] [address] 01/17/2025 2:00 PM EDT Appointment [facility] [address] [place] [address] 01/18/2025 2:00 PM EDT Appointment [facility] [address] [place] [address] 01/19/2025 2:00 PM EDT Appointment [facility] [address] [place] [address] 03/10/2025 11:20 AM EDT Office Visit Pav CC Head, Neck & Respiratory [address] [facility] [place] [address] Elsa Razo, METAL FABRICATOR [address] [place] [address] Pending Results Name Type Priority Associated Diagnoses Date /Time Bone marrow exam Pathology and Cytology Routine Myelodysplasia (myelodysplastic syndrome) ([facility]) 01/06/2025 9:48 AM EDT Scheduled Orders Name Type Priority Associated Diagnoses Orde r Schedule Bone marrow exam Pathology and Cytology Routine Myelodysplasia (myelodysplastic syndrome) ([facility]) Expected: 12/18/2024 (Approximate), Expires: 06/20/2026 documented as of this encounter Procedures Procedure Name Priority Date/Time Associated Diagnosis Comments GROUP A STREPTOCOCCUS BY PCR Routine 12/16/2024 9:40 AM EDT Myelodysplasia (myelodysplastic syndrome) ([facility]) STREPTOCOCCUS CULTURE Routine 12/16/2024 9:40 AM EDT Myelodysplasia (myelodysplastic syndrome) ([facility]) CBC WITH AUTO DIFFERENTIAL Routine 12/16/2024 8:10 AM EDT Myelodysplasia (myelodysplastic syndrome) ([facility]) URIC ACID, PLASMA Routine 12/16/2024 8:1 0 AM EDT Myelodysplasia (myelodysplastic syndrome) ([facility]) PHOSPHORUS, PLASMA Routine 12/16/2024 8: 10 AM EDT Myelodysplasia (myelodysplastic syndrome) ([facility]) MAGNESIUM, PLASMA Routine 12/16/2024 8:1 0 AM EDT Myelodysplasia (myelodysplastic syndrome) (CMS/HCC) LACTATE DEHYDROGENASE, PLASMA Routine 12/16/2024 8:10 AM EDT Myelodysplasia (myelodysplastic syndrome) (CMS/HCC) COMPREHENSIVE METABOLIC PANEL, PLASMA Routine 12/16/2024 8:10 AM EDT Myelodysplasia (myelodysplastic syndrome) (CMS/HCC) documented in this encounter Results * Leukemia/Lymphoma - Immunophenotyping by Flow Cytometry (01/06/2025 9:48 AM EDT) Pathologist [facility] Clinical Indication AML 01/07/2025 10:18 AM T [facility] Flow Cytometry Interpretation APPROXIMATELY 16% MYELOID BLASTS; EXPRESSING CD34, CD117, CD13, CD33, HLA-DR, PARTIAL CD7, PARTIAL CD123, VARIABLE CD38, AND MODERATE CD45, SEE COMMENT, BONE MARROW ASPIRATE. 01/07/2025 10:18 AM T [facility] Comments Specimen viability is [...] disease. Final interpretation requires morphologic correlation (BM [id number]). The following antibodies were used in this analysis: CD45, CD2, CD3, CD4, CD5, CD7, CD8, CD10, CD13, CD14, CD15, CD16, CD19, CD20, CD33, CD34, CD38, CD56, CD117, HLA-DR, kappa surface light chains, lambda surface light chains, CD123 01/07/2025 10:[address] [facility] Disclaimer This test was developed and its performance characteristics determined by the Immuno-Molecular Pathology Laboratory at the [facility]. It has not been cleared or approved [...] laboratory testing. 01/07/2025 10:[address] [facility] Pathologist Signature Reviewed by: Tessie Peralta MD 01/07/2025 10:18 AM EDT [facility] MRD Indicated Test Not Indicated 10:[address] [facility] Bone Marrow Specimen from bone marrow obtained by aspiration / Unknown Non-blood Collection / Unknown 01/06/2025 9:48 AM EDT 01/06/2025 11:20 AM EDT Virgen Vargas MD LAB FLOW CYTOMETRY ORDERABLES Final Result [facility] [address] [place] [address] * Streptococcus Culture (12/16/2024 9:40 AM EDT) Culture Reading Strep A No Streptococcus pyogenes or Streptococcus dysgalactiae isolated 12/17/2024 2:[address] [facility] Swab Pharyngeal structure / Unknown Non-blood Collection / Unknown 12/16/2024 9:40 AM EDT 12/16/2024 10:10 AM EDT Isaura Wynn APRN LAB MICROBIOLOGY - GENERAL ORD ERABLES Final Result [facility] [address] [place] [address] * Group A Streptococcus by PCR (12/16/2024 9:40 AM EDT) Group A Streptococcus PCR Result Not Detected Not Detected 12/16/2024 11:53 AM EDT [facility] Swab Pharyngeal structure / Unknown Non-blood Collection / Unknown 12/16/2024 9:40 AM EDT 12/16/2024 10:10 AM EDT us Isaura Wynn APRN LAB MICROBIOLOGY - GENERAL ORD ERABLES Final Result Performing Organization Address City/[facility]/[place] [address] * (ABNORMAL) Uric acid (12/16/2024 8:10 AM EDT) Uric Acid, Plasma 3.0(L) 3.7 - 8.0 mg/dL 12/16/2024 8:58 AM EDT [facility] Blood Venous blood specimen / Unknown Venipuncture / Unknown 12/16/2024 8:10 AM EDT 12/16/2024 8:27 AM EDT us Isaura Wynn METAL FABRICATOR LAB BLOOD ORDERABLES Final Res ult Performing Organization Address City/[facility]/[place] [address] * Phosphorus, Plasma (12/16/2024 8:10 AM EDT) Phosphorus, Plasma 3.4 2.5 - 4.5 mg/dL 12/16/2024 8:58 AM EDT [facility] Blood Venous blood specimen / Unknown Venipuncture / Unknown 12/16/2024 8:10 AM EDT 12/16/2024 8:27 AM EDT us Isaura Wynn METAL FABRICATOR LAB BLOOD ORDERABLES Final Res ult [facility] [address] [place] [address] * Magnesium, Plasma (12/16/2024 8:10 AM EDT) Magnesium, Plasma 2.4 1.9 - 2.4 mg/dL 12/16/2024 8:58 AM EDT [facility] Blood Venous blood specimen / Unknown Venipuncture / Unknown 12/16/2024 8:10 AM EDT 12/16/2024 8:27 AM EDT us Isaura Gautam Mary Jovelvet METAL FABRICATOR LAB BLOOD ORDERABLES Final Res ult Performing Organization Address [facility]/ZIP Co de Phone Number [facility] [address] [place] [address] * Lactate Dehydrogenase, Plasma (12/16/2024 8:10 AM EDT) LDH, Plasma 230 116 - 250 U/L 12/16/2024 8:58 AM EDT [facility] Blood Venous blood specimen / Unknown Venipuncture / Unknown 12/16/2024 8:10 AM EDT 12/16/2024 8:27 AM EDT us Isaura Wynn METAL FABRICATOR LAB BLOOD ORDERABLES Final Res ult Performing Organization Address [facility] Co de Phone Number [facility] [address] [place] [address] * (ABNORMAL) Comprehensive Metabolic Panel, Plasma (12/16/2024 8:10 AM EDT) Glucose, Plasma 110(H) 74 - 99 mg/dL 12/16/2024 8:58 AM EDT [facility] BUN, Plasma 10 8 - 23 mg/dL 12/16/2024 8:58 AM EDT [facility] Creatinine, Plasma 0.79 0.70 - 1.20 mg/dL 12/16/2024 8:58 AM EDT [facility] BUN/Creatinine Ratio 13 12/16/2024 8:58 AM EDT [facility] Sodium, Plasma 140 136 - 145 mmol/L 12/16/2024 8:58 AM EDT [facility] Potassium, Plasma 4.2 3.6 - 4.9 mmol/L 12/16/2024 8:58 AM EDT [facility] Chloride, Plasma 109(H) 97 - 107 mmol/L 12/16/2024 8:58 AM EDT [facility] CO2, Plasma 21(L) 22 - 29 mmol/L 12/16/2024 8:58 AM EDT [facility] Anion Gap 10 6 - 16 mmol/L 12/16/2024 8:58 AM EDT [facility] Total Calcium, Plasma 8.9 8.9 - 10.2 mg/dL 12/16/2024 8:58 AM EDT [facility] Total Protein 6.8 6.3 - 7.9 g/dL 12/16/2024 8:58 AM EDT [facility] Albumin, Plasma 4.0 3.5 - 5.2 g/dL 12/16/2024 8:58 AM EDT [facility] AST, Plasma 23 10 - 50 U/L 12/16/2024 8:58 AM EDT [facility] ALT, Plasma 25 10 - 50 U/L 12/16/2024 8:58 AM EDT [facility] Alkaline Phosphatase, Plasma 95 40 - 115 U/L 12/16/2024 8:58 AM EDT [facility] Total Bilirubin, Plasma 0.6 0.2 - 1.1 mg/dL 12/16/2024 8:58 AM EDT [facility] eGFRcr 96.2 mL/min/1.7 3m*2 12/16/2024 8:58 AM EDT [facility] Comment:Reported eGFRcr in m L/min/1.73m2 is based the CKD-EPI 2020 equation that does not use a race coefficient. Blood Venous blood specimen / Unknown Venipuncture / Unknown 12/16/2024 8:10 AM EDT 12/16/2024 8:27 AM EDT us Isaura Wynn METAL FABRICATOR LAB BLOOD ORDERABLES Final Res ult [facility] [address] [place] [address] * (ABNORMAL) CBC and Differential (12/16/2024 8:10 AM EDT) WBC Count 0.59(LL) 3.70 - 10.30 10*3/uL LAB HEMATOLOGY METHOD 12/16/2024 10:15 AM EDT [facility] RBC Count 2.48(L) 4.60 - 6.10 10*6/uL LAB HEMATOLOGY METHOD 12/16/2024 10:15 AM EDT [facility] HGB 8.0(L) 13.7 - 17.5 g/dL LAB HEMATOLOGY METHOD 12/16/2024 10:15 AM EDT [facility] HCT 22.1(L) 40.0 - 51.0 % LAB HEMATOLOGY METHOD 12/16/2024 10:15 AM EDT [facility] Platelet Count <5(LL) 155 - 369 10*3/uL LAB HEMATOLOGY METHOD 12/16/2024 10:15 AM EDT [facility] MCV 89 79 - 98 fL LAB HEMATOLOGY METHOD 12/16/2024 10:15 AM EDT [facility] MCH 32.3(H) 26.0 - 32.0 pg LAB HEMATOLOGY METHOD 12/16/2024 10:15 AM EDT [facility] MCHC 36.2(H) 30.7 - 35.5 g/dL LAB HEMATOLOGY METHOD [facility]/16[facility]24 [facility] RDW 16.3(H) 11.5 - 14.5 % LAB HEMATOLOGY METHOD 12/16/2024 10:15 AM EDT [facility] MPV LAB HEMATOLOGY METHOD 12/16/2024 10:15 AM EDT [facility] Comment:Not Measured nRBC 0.0 <=0.0 per 100 WBCs LAB HEMATOLOGY METHOD 12/16[facility]2024 10[facility] Differential Type Automated LAB HEMATOLOGY METHOD 12/16/2024 10:15 AM EDT [facility] Neutrophils % 5 % LAB HEMATOLOGY METHOD 12/16/2024 10:15 AM EDT [facility] Lymphocytes % 90 % LAB HEMATOLOGY METHOD 12/16/2024 10:15 AM EDT [facility] Monocytes % 5 % LAB HEMATOLOGY METHOD 12/16/2024 10:15 AM EDT [facility] Eosinophils % 0 % LAB HEMATOLOGY METHOD 12/16/2024 10:15 AM EDT [facility] Basophils % 0 % LAB HEMATOLOGY METHOD 12/16/2024 10:15 AM EDT [facility] Immature Granulocytes % 0 % LAB HEMATOLOGY METHOD 12/16/2024 10:15 AM EDT [facility] Neutrophils Absolute 0.03(LL) 1.60 - [...] Final Res ult [facility] [address] [place] [address] documented in this encounter Visit Diagnoses Diagnosis [...] documented as of this encounter Care Teams Hotel Office Manager Relationship Specialty Start Date End Date Zhao Harris MD [address] [place] [address] PCP - General 12/03/20 documented as of this encounter
--- OUTSIDE RECORDS SUMMARY | 2024-12-16 10:00 | XMS_ITS | Encounter Summary ---
Author Organization [facility] Address [address] [place] [address] Care Team Providers Care Client Service Manager Name Role Phone Zhao Harris MD Primary Care Provider + [phone] Reason for Visit * Episode Based Medications (Routine) - Authorized Specialty Diagnoses / Procedures Referred By Justice mcgee Referred To Contact Diagnoses Myelodysplasia (myelodysplastic syndrome) (CMS/HCC) Procedures Azacitidine Daily x 7 / Venetoclax Every 28 Days Virgen Vargas MD 800 [facility] [address] [address] Phone: tel: fax: Virgen Vargas MD [address] [address] Phone: tel: fax: Referral ID Status Reason Start Date Expiration Date V isits Requested Visits Authorized [id number] Authorized 10/20/2024 04/21/2026 1 91 Encounter Details Date Type Department Care Team (Latest Contact Info) Description 12/16/2024 10:00 AM EDT - 12/16/2024 10:59 AM EDT Hospital Encounter PAV H Infusion [address] [place] [address] Myelodysplasia (myelodysplastic syndrome) (CMS/HCC) (Primary Dx); Thrombocytopenia [...] drink first t manav in the morning (EYE-ENFORCEMENT SAFETY OFFICER) to steady your nerves or to [...] 5 MG tabletIndications :Coronary artery disease involving eyak heart with angina pectoris, unspecified vessel or lesion type (CMS/HCC),Hyperte nsion, unspecified type Take 1 tablet (5 mg) by mouth daily. 90 tablet 3 09/11/2024 HYDROcodone-aceta minophen ([place]) 5-325 MG tablet Take 1 tablet by [...] MG SL tabletIndications :Coronary artery disease involving eyak heart with angina pectoris, unspecified vessel or [...] Support PAV Hematology/BMT and Cellular Therapy Program [address] [place] [address] [place] [phone] 01/13/2025 10:00 AM EDT Office Visit PAV CC Hematology/BMT and Cellular Therapy Program 750 [facility], [address] [place] [phone] Isaura Wynn, CHARGER OPERATOR HELPER 800 [facility] [address] [place] [phone] 01/13/2025 11:30 AM EDT Appointment PAV H Infusion [address] [place] [address] 01/14/2025 2:00 PM EDT Appointment [facility] H Infusion [address] [place] [address] 01/15/2025 2:00 PM EDT Appointment PAV H Infusion [address] [place] [address] 01/16/2025 2:00 PM EDT Appointment P[facility] H Infusion [address] [place] [address] 01/17/2025 2:00 PM EDT Appointment PAV H Infusion [address] [place] [address] 01/18/2025 2:00 PM EDT Appointment PAV H Infusion [address] [place] [address] 01/19/2025 2:00 PM EDT Appointment PAV H Infusion [address] [place] [address] 03/10/2025 11:20 AM EDT Office Visit Pav CC Head, Neck & Respiratory 800 [facility], 2nd [place] [address] Elsa Razo, CHARGER OPERATOR HELPER [address] [place] [phone] documented as of this encounter Procedures Procedure [...] sult [facility] [address] [place] [address] * Transfuse platelets (12/16/2024 12:21 PM EDT) us Kayli CHIU BLOOD TRANSFUSION ORDERA BLES Final Result * Transfuse platelets: 1 Units (12/16/2024 12:21 PM EDT) us Kayli CHIU [...] ORDERABLE S Final Result BLOOD BANK 800 [place] [address], * Exception to Standard Practice, Pathologist Interpretation [...] ORDERAB LES Final Result Performing Organization Address City/[facility]/[place] Co de Phone Number BLOOD BANK [address] * Prepare Leukocyte Reduced Platelets: 1 Units (12/16/2024 10:54 AM EDT) Product Code E5021H95 BLOO D BANK Dispense Status Transfused BLOOD BANK Blood Expiration Date [id number] BLOOD BANK Unit Number [id number] CH B LOOD BANK Product Blood Type 8400 BLOOD BANK Blood Type AB+ BLOOD BANK Blood Venous blood specimen / Unknown Kayli CHIU BLOOD BANK PRODUCT ORDER VIKAS Final Result Performing Organization Address [facility] Co de Phone Number BLOOD BANK [address] * Prepare Leukocyte Reduced RBC: 1 Units, Irradiated (12/16/2024 10:54 AM EDT) Product Code E5330N87 BLOO D BANK Dispense Status Transfused BLOOD BANK Blood Expiration Date [id number] BLOOD BANK Unit Number [id number] CH B LOOD BANK Product Blood Type 9500 BLOOD BANK Blood Type O- BLOOD BANK Crossmatch Compatible BLOOD BANK Other Kayli CHIU BLOOD BANK PRODUCT ORDER VIKAS Final Result Performing Organization Address [facility] Co de Phone Number BLOOD BANK [address] [place] [address] documented in this encounter Visit Diagnoses Diagnosis [...] documented as of this encounter Care Teams Client Service Manager Relationship Specialty Start Date End Date Zhao Harris MD [address] [place] [address] PCP - General 12/03/20 documented as of this encounter
--- OUTSIDE RECORDS SUMMARY | 2024-12-16 11:00 | XMS_ITS | Encounter Summary ---
Author Organization Healthcare Address [address] [place] [address] Care Team Providers Care Lens Blocker Name Role Phone Zhao Harris MD Primary Care Provider [phone] Encounter Details Date Type Department Care Team (Latest Contact Info) Description 12/16/2024 11:00 AM EDT - 12/16/2024 11:59 PM EDT Hospital Encounter [facility] H Infusion [address] [place] [address] Myelodysplasia (myelodysplastic syndrome) (CMS/HCC) (Primary Dx) Discharge [...] drink first t manav in the morning (EYE-TUMBLER TENDER) to steady your nerves or to [...] 5 MG tabletIndications :Coronary artery disease involving [place] heart with angina pectoris, unspecified vessel or lesion type (CMS/HCC),Hyperte nsion, unspecified type Take 1 tablet (5 mg) by mouth daily. 90 tablet 3 09/11/2024 HYDROcodone-aceta minophen ([place]) 5-325 MG tablet Take 1 tablet by [...] MG SL tabletIndications :Coronary artery disease involving [place] heart with angina pectoris, unspecified vessel or lesion type (CMS/HCC) Place 1 tablet (0.4 mg) under the tongue every 5 (five) minutes as needed for chest pain. 10 tablet 11 09/11/2024 venetoclax (Venclexta) 10 MG tabletIndications :Myelodysplasia (myelodysplastic syndrome) (CMS/HCC) Take 2 tablets by mouth daily for 14 days. 28 tablet 12/16/2024 5 venetoclax ([place]xt[place]) 50 MG tabletIndications :Myelodysplasia (myelodysplastic syndrome) (CMS/HCC) Take 1 tablet by mouth daily for 14 days. 14 tablet 12/16/2024 5 documented as of this encounter Plan of Treatment Upcoming Encounters Date Type Department Care Team ([facility] st Contact Info) Description 01/13/2025 9:30 AM EDT Clinical Support [facility] Hematology/BMT and Cellular Therapy Program [address] [address] 01/13/2025 10:00 AM EDT Office Visit [facility] Hematology/BMT and Cellular Therapy Program [address] [address] Isaura Wynn, NEWSWRITER 800 [facility] [address] [place] [address] [place] [address] 01/13/2025 11:30 AM EDT Appointment [facility] H Infusion [address] [place] [address] 01/14/2025 2:00 PM EDT Appointment [facility] H Infusion [address] [place] [address] 01/15/2025 2:00 PM EDT Appointment [facility] H Infusion [address] [place] [address] 01/16/2025 2:00 PM EDT Appointment [facility] H Infusion [address] [place] [address] 01/17/2025 2:00 PM EDT Appointment [facility] H Infusion [address] [place] [address] 01/18/2025 2:00 PM EDT Appointment [facility] H Infusion [address] [place] [address] 01/19/2025 2:00 PM EDT Appointment [facility] H Infusion [address] [place] [address] 03/10/2025 11:20 AM EDT Office Visit Pav CC Head, Neck & Respiratory 800 [facility], 2nd [place] [address] Elsa Razo, NEWSWRITER [address] [place] [phone] documented as of this encounter Visit Diagnoses [...] documented as of this encounter Care Teams Lens Blocker Relationship Specialty Start Date End Date Zhao Harris MD [address] [place] [phone] PCP - General 12/03/20 documented as of this encounter
--- OUTSIDE RECORDS SUMMARY | 2024-12-17 08:23 | XMS_ITS | Encounter Summary ---
Author Organization [facility] Address [address] [place] [address] Care Team Providers Care Web Operations Lead Name Role Phone Zhao Harris MD Primary Care Provider + [phone] Reason for Visit * Episode Based Medications (Routine) - Authorized Specialty Diagnoses / Procedures Referred By Justice mcgee Referred To Contact Diagnoses Myelodysplasia (myelodysplastic syndrome) (CMS/HCC) Procedures Azacitidine Daily x 7 / Venetoclax Every 28 Days Virgen Vargas MD 800 [facility] [address] [address] Phone: tel: fax: Virgen Vargas MD [address] [address] Phone: tel: fax: Referral ID Status Reason Start Date Expiration Date V isits Requested Visits Authorized [id number] Authorized 10/20/2024 04/21/2026 1 91 Encounter Details Date Type Department Care Team (Latest Contact Info) Description 12/17/2024 8:23 AM EDT - 12/17/2024 11:59 PM EDT Hospital Encounter [facility] Infusion 800 [place] [phone] Myelodysplasia (myelodysplastic syndrome) (CMS/HCC) (Primary Dx); Thrombocytopenia [...] drink first t manav in the morning (EYE-SPECIAL EDUCATION PARA PROFESSIONAL) to steady your nerves or to [...] MG tabletIndications :Coronary 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 90 tablet 3 09/11/2024 HYDROcodone-aceta minophen ([place]) 5-325 MG tablet Take 1 tablet by [...] SL tabletIndications :Coronary artery disease involving [place] heart with angina pectoris, unspecified vessel or [...] Upcoming Encounters Date Type Department Care Team ([facility] st Contact Info) Description 01/13/2025 9:30 AM EDT Clinical Support [facility] Hematology/BMT and Cellular Therapy Program [address] [place] [address] 01/13/2025 10:00 AM EDT Office Visit [facility] Hematology/BMT and Cellular Therapy Program [address] [address] Isaura Wynn APRN 800 [facility] [address] [place] [address] 01/13/2025 11:30 AM EDT Appointment [facility] Infusion 800 [place] [address] 01/14/2025 2:00 PM EDT Appointment [facility] Infusion [address] [place] [address] 01/15/2025 2:00 PM EDT Appointment [facility] Infusion [address] [place] [address] 01/16/2025 2:00 PM EDT Appointment [facility] Infusion [address] [place] [address] 01/17/2025 2:00 PM EDT Appointment [facility]fusion [address] [place] [address] 01/18/2025 2:00 PM EDT Appointment [facility]fusion [address] [place] [address] 01/19/2025 2:00 PM EDT Appointment [facility]fusion [address] [place] [address] 03/10/2025 11:20 AM EDT Office Visit Pav CC Head, Neck & Respiratory 800 [facility], 2nd [place] [address] Elsa Razo, FOXER 800 [place] [address] documented as of this encounter Results * [...] documented as of this encounter Care Teams Web Operations Lead Relationship Specialty Start Date End Date Zhao Harris MD [address] [place] [address] PCP - General 12/03/20 documented as of this encounter
--- OUTSIDE RECORDS SUMMARY | 2024-12-18 08:30 | XMS_ITS | Encounter Summary ---
Author Organization [facility] Address [address] [place] [address] Care Team Providers Care Crushing Machine Operator Name Role Phone Zhao Harris MD Primary Care Provider + [phone] Reason for Visit * Episode Based Medications (Routine) - Authorized Specialty Diagnoses / Procedures Referred By Justice mcgee Referred To Contact Diagnoses Myelodysplasia (myelodysplastic syndrome) (CMS/HCC) Procedures Azacitidine Daily x 7 / Venetoclax Every 28 Days Virgen Vargas MD 800 [facility] [address] [address] Phone: tel: fax: Virgen Vargas MD [address] [address] Phone: tel: fax: Referral ID Status Reason Start Date Expiration Date V isits Requested Visits Authorized [id number] Authorized 10/20/2024 04/21/2026 1 91 Encounter Details Date Type Department Care Team (Latest Contact Info) Description 12/18/2024 8:30 AM EDT - 12/18/2024 9:45 AM EDT Hospital Encounter [facility] H Infusion [address] [place] [phone] Myelodysplasia (myelodysplastic syndrome) (CMS/HCC) (Primary Dx); Thrombocytopenia [...] drink first t manav in the morning (EYE-CAMERA PROTOTYPING ENGINEER) to steady your nerves or to [...] 5 MG tabletIndications :Coronary artery disease involving [place] heart with angina pectoris, unspecified vessel or lesion type (CMS/HCC),Hyperte nsion, unspecified type Take 1 tablet (5 mg) by mouth daily. 90 tablet 3 09/11/2024 HYDROcodone-aceta minophen ([place]) 5-325 MG tablet Take 1 tablet by [...] MG SL tabletIndications :Coronary artery disease involving elim ir[place] heart with angina pectoris, unspecified vessel or [...] 01/13/2025 9:30 AM EDT Clinical Support [facility] Hematology/BMT and Cellular Therapy Program [address] [place] [address] [place] [address] 01/13/2025 10:00 AM EDT Office Visit P[facility] CC Hematology/BMT and Cellular Therapy Program 750 [facility], [address] [place] [phone] Isaura Wynn, MANAGER CANCER 800 [facility] [address] [place] [phone] 01/13/2025 11:30 AM EDT Appointment P[facility] H Infusion [address] [place] [address] 01/14/2025 2:00 PM EDT Appointment P[facility] H Infusion [address] [place] [address] 01/15/2025 2:00 PM EDT Appointment [facility] H Infusion [address] [place] [address] 01/16/2025 2:00 PM EDT Appointment PAV H Infusion [address] [place] [address] 01/17/2025 2:00 PM EDT Appointment PAV H Infusion [address] [place] [address] 01/18/2025 2:00 PM EDT Appointment P[facility] H Infusion [address] [place] [address] 01/19/2025 2:00 PM EDT Appointment PAV H Infusion [address] [place] [address] 03/10/2025 11:20 AM EDT Office Visit Pav CC Head, Neck & Respiratory 800 [facility], 2nd [place] [address] Elsa Razo, MANAGER CANCER [address] [place] [phone] documented as of this encounter Procedures Procedure [...] LAB HEMATOLOGY METHOD 12/18/2024 11:06 AM EDT [facility] Blood Blood sample taken from central line / Unknown Venipuncture / Unknown 12/18/2024 10:55 AM EDT 12/18/2024 11:03 AM EDT us Virgen Vargas MD LAB BLOOD ORDERABLES Final Re sult [facility] [address] [place] [address] * Transfuse platelets (12/18/2024 10:52 AM EDT) us Kayli CHIU BLOOD TRANSFUSION ORDERA BLES Final Result * Transfuse platelets: 1 Units (12/18/2024 10:52 AM EDT) us Kayli CHIU BLOOD TRANSFUSION ORDERA BLES Final Result * Prepare Leukocyte Reduced Platelets: 1 Units (12/18/2024 9:45 AM EDT) Product Code [id number] BLOO D BANK Dispense Status Transfused BLOOD BANK Blood Expiration Date [id number] BLOOD BANK Unit Number [id number] B LOOD BANK Product Blood Type 6200 BLOOD BANK Blood Type A+ BLOOD BANK Blood Venous blood specimen / Unknown us Kayli CHIU BLOOD BANK PRODUCT ORDER VIKAS Final Result BLOOD BANK [address] [place] [address], * (ABNORMAL) Comprehensive Metabolic Panel, Plasma (12/18/2024 [...] AM EDT 12/18/2024 9:20 AM EDT us Vrigen Vargas MD LAB BLOOD ORDERABLES Final Re sult [facility] [address] [place] [address] * (ABNORMAL) CBC and differential (12/18/2024 9:14 [...] MD LAB BLOOD ORDERABLES Final Resul t [facility] [address] [place] [address] * Exception to Standard Practice, Pathologist Interpretation [...] ORDERAB LES Final Result Performing Organization Address City/State/[facility] Co de Phone Number BLOOD BANK 800 [place] [address], documented in this encounter Visit Diagnoses Diagnosis [...] documented as of this encounter Care Teams Crushing Machine Operator Relationship Specialty Start Date End Date Zhao Harris MD [address] [place] [facility] [address] [place] [id number] PCP - General 12/03/20 documented as of this encounter
--- OUTSIDE RECORDS SUMMARY | 2024-12-18 09:46 | XMS_ITS | Encounter Summary ---
Author Organization Healthcare Address [address] [place] [address] Care Team Providers Care Real Estate Inspector Name Role Phone Zhao Harris MD Primary Care Provider [phone] Encounter Details Date Type Department Care Team (Latest Contact Info) Description 12/18/2024 9:46 AM EDT - 12/18/2024 11:59 PM EDT Hospital Encounter PAV H Infusion [address] [place] [address] Myelodysplasia (myelodysplastic syndrome) (CMS/HCC) (Primary Dx) Discharge [...] first t manav in the morning (EYE-TECHNICIAN PLANT AND MAINTENANCE) to steady your nerves or to get [...] 5 MG tabletIndications :Coronary artery disease involving [place] heart with angina pectoris, unspecified vessel or lesion type (CMS/HCC),Hyperte nsion, unspecified type Take 1 tablet (5 mg) by mouth daily. 90 tablet 3 09/11/2024 HYDROcodone-aceta minophen ([place]) 5-325 MG tablet Take 1 tablet by [...] MG SL tabletIndications :Coronary artery disease involving [place] heart with angina pectoris, unspecified vessel or [...] and Cellular Therapy Program 750 [facility], [address] [place] [phone] 01/13/2025 10:00 AM EDT Office Visit PAV CC Hematology/BMT and Cellular Therapy Program 750 [facility], [facility] [place] [address] Isaura Wynn, TABLEAU ADMINISTRATOR 800 [facility] [address] [place] [phone] 01/13/2025 11:30 AM EDT Appointment PAV H Infusion 800 [place] [address] 01/14/2025 2:00 PM EDT Appointment PAV H Infusion 800 [place] [address] 01/15/2025 2:00 PM EDT Appointment PAV H Infusion [address] [place] [address] 01/16/2025 2:00 PM EDT Appointment PAV H Infusion [address] [place] [address] 01/17/2025 2:00 PM EDT Appointment PAV H Infusion [address] [place] [address] 01/18/2025 2:00 PM EDT Appointment PAV H Infusion [address] [place] [address] 01/19/2025 2:00 PM EDT Appointment PAV H Infusion 800 [place] [address] 03/10/2025 11:20 AM EDT Office Visit Pav CC Head, Neck & Respiratory 800 [facility], 2nd [place] [address] Elsa Razo, TABLEAU ADMINISTRATOR 800 [place] [phone] documented as of this encounter Visit Diagnoses [...] documented as of this encounter Care Teams Real Estate Inspector Relationship Specialty Start Date End Date Zhao Harris MD [address] [place] [address] [place] [address] PCP - General 12/03/20 documented as of this encounter
--- OUTSIDE RECORDS SUMMARY | 2024-12-19 08:30 | XMS_ITS | Encounter Summary ---
Author Organization [facility] Address [address] [place] [address] Care Team Providers Care Insulator Cutter And Former Name Role Phone Zhao Harris MD Primary Care Provider + [phone] Reason for Visit * Episode Based Medications (Routine) - Authorized Specialty Diagnoses / Procedures Referred By Justice mcgee Referred To Contact Diagnoses Myelodysplasia (myelodysplastic syndrome) (CMS/HCC) Procedures Azacitidine Daily x 7 / Venetoclax Every 28 Days Virgen Vargas MD [address] [address] Phone: tel: fax: Virgen Vargas MD [address] [address] Phone: tel: fax: Referral ID Status Reason Start Date Expiration Date V isits Requested Visits Authorized [id number] Authorized 10/20/2024 04/21/2026 1 91 Encounter Details Date Type Department Care Team (Latest Contact Info) Description 12/19/2024 8:30 AM EDT - 12/19/2024 11:59 PM EDT Hospital Encounter [facility] Infusion Clinic 2 [address] [place] [phone] Myelodysplasia (myelodysplastic syndrome) (CMS/HCC) (Primary Dx) Discharge [...] drink first t manav in the morning (EYE-HEATER TENDER) to steady your nerves or to [...] 5 MG tabletIndications :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 pectoris, unspecified vessel or [...] MG SL tabletIndications :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 pectoris, unspecified vessel or [...] Upcoming Encounters Date Type Department Care Team ([facility] Contact Info) Description 01/13/2025 9:30 AM EDT Clinical Support [facility] Hematology/BMT and Cellular Therapy Program [address] [address] 01/13/2025 10:00 AM EDT Office Visit [facility] Hematology/BMT and Cellular Therapy Program [address] [address] Isaura Wynn, INSTRUCTIONAL SUPERVISOR 800 [facility] [address] [place] [phone] 01/13/2025 11:30 AM EDT Appointment [facility] Infusion [address] [place] [address] 01/14/2025 2:00 PM EDT Appointment [facility] Infusion [address] [place] [address] 01/15/2025 2:00 PM EDT Appointment [facility] Infusion [address] [place] [address] 01/16/2025 2:00 PM EDT Appointment [facility] Infusion [address] [place] [address] 01/17/2025 2:00 PM EDT Appointment [facility] Infusion [address] [place] [address] 01/18/2025 2:00 PM EDT Appointment [facility] Infusion [address] [place] [address] 01/19/2025 2:00 PM EDT Appointment [facility] Infusion [address] [place] [address] 03/10/2025 11:20 AM EDT Office Visit [facility] CC Head, Neck & Respiratory 800 [facility], 2nd [place] [address] Elsa Razo, INSTRUCTIONAL SUPERVISOR [address] [place] [address] documented as of this encounter Visit Diagnoses [...] documented as of this encounter Care Teams Insulator Cutter And Former Relationship Specialty Start Date End Date Zhao Harris MD [address] [place] [address] PCP - General 12/03/20 documented as of this encounter
--- OUTSIDE RECORDS SUMMARY | 2024-12-20 08:08 | XMS_ITS | Encounter Summary ---
Author Organization [facility] Address [address] [place] [address] Care Team Providers Care Classics Professor Name Role Phone Zhao Harris MD Primary Care Provider + [phone] Reason for Visit * Episode Based Medications (Routine) - Authorized Specialty Diagnoses / Procedures Referred By Justice mcgee Referred To Contact Diagnoses Myelodysplasia (myelodysplastic syndrome) (CMS/HCC) Procedures Azacitidine Daily x 7 / Venetoclax Every 28 Days Virgen Vargas MD [address] [place] [phone] Phone: tel: fax: Virgen Vargas MD [address] [address] Phone: tel: fax: Referral ID Status Reason Start Date Expiration Date V isits Requested Visits Authorized [id number] Authorized 10/20/2024 04/21/2026 1 91 Encounter Details Date Type Department Care Team (Latest Contact Info) Description 12/20/2024 8:08 AM EDT - 12/20/2024 11:59 PM EDT Hospital Encounter [facility] Infusion [facility] 1 [address] [place] [phone] Myelodysplasia (myelodysplastic syndrome) (CMS/HCC) (Primary Dx); Thrombocytopenia (CMS/HCC); SOB (shortness of breath) Discharge Disposition: Home or Self Care Social [...] drink first t manav in the morning (EYE-CABINETMAKER HELPER) to steady your nerves or to [...] Sign Reading Time Taken Comments Blood Pressure 139/84 12/20/2024 1:25 PM EDT Pulse 62 12/20/2024 1:25 PM EDT Temperature 36.7 C (98 F) 12/20/2024 1:25 PM EDT Respiratory Rate 18 12/20/2024 1:25 PM EDT Oxygen Saturation 100% 12/20/2024 8:54 AM EDT Inhaled Oxygen Concentration - - Weight 84.4 kg (186 lb 1.1 oz) 12/20/2024 8:54 A M EDT Height 170.2 cm (5' 7 ) 12/20/2024 8:54 AM EDT Body Mass Index 29.14 12/20/2024 8:54 AM EDT documented in this encounter Medications at Time of Discharge acyclovir (Zovirax) 800 MG tabletIndications :Myelodysplasia (myelodysplastic syndrome) (CMS/HCC) Take 1 tablet (800 mg) by mouth in the morning and 1 tablet (800 mg) before bedtime. 60 tablet 3 10/14/2024 bisoprolol (Zebeta) 5 MG tabletIndications :Coronary artery disease involving [place] heart with angina pectoris, unspecified vessel or lesion type (CMS/HCC),Hyperte nsion, unspecified type Take 1 tablet (5 mg) by mouth daily. 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 pectoris, unspecified vessel [...] encounter Miscellaneous Notes * Addendum Note - Hugo Benítez - 12/20/2024 8:30 AM EDTEncounter addended by: Hugo Benítez on: 12/23/2024 2:31 PM Actions taken: Charge Capture section accepted documented in this encounter Plan of Treatment Upcoming Encounters Date Type Department Care Team ([facility] st Contact Info) Description 01/13/2025 9:30 AM EDT Clinical Support [facility] Hematology/BMT and Cellular Therapy Program [address] [phone] 01/13/2025 10:00 AM EDT Office Visit [facility] Hematology/BMT and Cellular Therapy Program [address] [phone] Isaura Wynn, GLAZING DEPARTMENT SUPERVISOR 800 [facility] [address] [place] [phone] 01/13/2025 11:30 AM EDT Appointment [facility] Infusion [address] [place] [address] 01/14/2025 2:00 PM EDT Appointment [facility] Infusion [address] [place] [address] 01/15/2025 2:00 PM EDT Appointment [facility] Infusion [address] [place] [address] 01/16/2025 2:00 PM EDT Appointment [facility] In[facility] [address] [place] [address] 01/17/2025 2:00 PM EDT Appointment [facility] In[facility] [address] [place] [address] 01/18/2025 2:00 PM EDT Appointment [facility] In[facility] [address] [place] [address] 01/19/2025 2:00 PM EDT Appointment [facility] In[facility] [address] [place] [address] 03/10/2025 11:20 AM EDT Office Visit Pav [facility] Head, Neck & Respiratory 800 [facility], [address]nd [place] [address] Elsa Razo, ESTRELLA [address] [place] [address] documented as of this encounter Procedures Procedure Name Priority Date/Time Associated Diagnosis Comments TYPE AND SCREEN Routine 12/20/2024 10:03 AM EDT SOB (shortness of breath) PREPARE RBC Routine 12/20/2024 10:01 AM EDT Myelodysplasia (myelodysplastic syndrome) (CMS/HCC) Thrombocytopenia (CMS/HCC) CBC WITH AUTO DIFFERENTIAL Routine 12/20/2024 9:00 AM EDT Myelodysplasia (myelodysplastic syndrome) (CMS/HCC) documented in this encounter Results * Transfuse RBC, Irradiated (12/20/2024 1:31 PM EDT) us Kayli CHIU BLOOD TRANSFUSION ORDERA BLES Final Result * Type and screen (12/20/2024 10:03 AM EDT) ABO/Rh O Negative 12/20/2024 10:03 AM EDT BLOOD BANK Antibody Screen Negative 12/20/2024 10:03 AM EDT BLOOD BANK Specimen Expiration 12/23/2024 23:59 12/20/2024 10:03 AM EDT BLOOD BANK Blood Venous blood specimen / Unknown (Central Line) Existing Catheter / Unknown 12/20/2024 10:03 AM EDT 12/20/2024 10:12 AM EDT Virgen Vargas MD LAB BLOOD BANK TEST ORDERABLE S Final Result Performing Organization Address [facility]/ZIP Co de Phone Number BLOOD BANK [address] [place] [address], * Prepare Leukocyte Reduced RBC: 1 Units, Irradiated (12/20/2024 10:01 AM EDT) Product Code [id number] CH BLOO D BANK Dispense Status Transfused BLOOD BANK Blood Expiration Date [id number] BLOOD BANK Unit Number [id number] B LOOD BANK Product Blood Type 9500 BLOOD BANK Blood Type O- BLOOD BANK Crossmatch Compatible BLOOD BANK Other Kayli CHIU BLOOD BANK PRODUCT ORDER VIKAS Final Result Performing Organization Address City/[facility]/ZIP Co de Phone Number BLOOD BANK [address] [place] [address], * (ABNORMAL) CBC and differential (12/20/2024 9:00 AM EDT) WBC Count 0.59(LL) 3.70 - 10.30 10*3/uL LAB HEMATOLOGY METHOD 12/20/2024 10:25 AM EDT [facility] RBC Count 2.46(L) 4.60 - 6.10 10*6/uL LAB HEMATOLOGY METHOD 12/20/2024 10:25 AM EDT [facility] HGB 7.8(L) 13.7 - 17.5 g/dL LAB HEMATOLOGY METHOD 12/20/2024 10:25 AM EDT [facility] HCT 22.0(L) 40.0 - 51.0 % LAB HEMATOLOGY METHOD 12/20/2024 10:25 AM EDT [facility] Platelet Count 22(L) 155 - 369 10*3/uL LAB HEMATOLOGY METHOD 12/20/2024 10:25 AM EDT [facility] MCV 89 79 - 98 fL LAB HEMATOLOGY METHOD 12/20/2024 10:25 AM EDT [facility] MCH 31.7 26.0 - 32.0 pg LAB HEMATOLOGY METHOD 12/20/2024 10:25 AM EDT [facility] MCHC 35.5 30.7 - 35.5 g/dL LAB HEMATOLOGY METHOD 12/20/2024 10:25 AM EDT [facility] RDW 16.0(H) 11.5 - 14.5 % LAB HEMATOLOGY METHOD 12/20/2024 10:25 AM EDT [facility] MPV 11.3 8.8 - 12.5 fL LAB HEMATOLOGY METHOD 12/20/2024 10:25 AM EDT [facility] nRBC 0.0 <=0.0 per 100 WBCs LAB HEMATOLOGY METHOD 12/20/2024 10:25 AM EDT [facility] Differential Type Automated LAB HEMATOLOGY METHOD 12/20/2024 10:25 AM EDT [facility] Neutrophils % 5 % LAB HEMATOLOGY METHOD 12/20/2024 10:25 AM EDT [facility] Lymphocytes % 92 % LAB HEMATOLOGY METHOD 12/20/2024 10:25 AM EDT [facility] Monocytes % 3 % LAB HEMATOLOGY METHOD 12/20/2024 10:25 AM EDT [facility] Eosinophils % 0 % LAB HEMATOLOGY METHOD 12/20/2024 10:25 AM EDT [facility] Basophils % 0 % LAB HEMATOLOGY METHOD 12/20/2024 10:25 AM EDT [facility] Immature Granulocytes % 0 % LAB HEMATOLOGY METHOD 12/20/2024 10:25 AM EDT [facility] Neutrophils Absolute 0.03(LL) 1.60 - 6.10 10*3/uL LAB HEMATOLOGY METHOD 12/20/2024 10:25 AM EDT [facility] Lymphocytes Absolute 0.54(L) 1.20 - 3.90 10*3/uL LAB HEMATOLOGY METHOD 12/20/2024 10:25 AM EDT [facility] Monocytes Absolute 0.02(L) 0.30 - 0.90 10*3/uL LAB HEMATOLOGY METHOD 12/20/2024 10:25 AM EDT [facility] Eosinophils Absolute 0.00 0.00 - 0.50 10*3/uL LAB HEMATOLOGY METHOD 12/20/2024 10:25 AM EDT [facility] Basophils Absolute 0.00 0.00 - 0.10 10*3/uL LAB HEMATOLOGY METHOD 12/20/2024 10:25 AM EDT [facility] Immature Granulocytes Absolute 0.00 0.00 - 0.06 10*3/uL LAB HEMATOLOGY METHOD 12/20/2024 10:25 AM EDT [facility] Blood Blood sample taken from central line / Unknown (Central Line) Existing Catheter / Unknown 12/20/2024 9:00 AM EDT 12/20/2024 9:13 AM EDT Narrative [facility] - 12/20/2024 10:25 AM EDT Therapeutic decision making should be based on absolute values, rather than percentages. us Christina Ramos MD LAB BLOOD ORDERABLES Final Resul t [facility] [address] [place] [phone] documented in this encounter Visit Diagnoses Diagnosis Myelodysplasia (myelodysplastic syndrome) (CMS/HCC)- Primary Myelodysplastic syndrome, unspecified Thrombocytopenia (CMS/HCC) Unspecified thrombocytopenia SOB (shortness of breath) Shortness of breath documented in this encounter Administered Medications Inactive [...] Waste Container. Chemotherapy: refer to [id number]., On 12/20/24 at 0900, For 1 dose, In 50 mL NSIndications:Myelodysplasia (myelodysplastic syndrome) (CMS/HCC) New Bag 12/20/2024 9:40 AM EDT 150 mg 540 mL/hr ondansetron ODT (Zofran-ODT) disintegrating tablet 16 mg 16 mg, Oral, Once, 1 dose, On 12/20/24 at 0830, RoutineIndications:Myelodyspla haim (myelodysplastic syndrome) (CMS/HCC) Given 12/20/2024 9:10 AM EDT 16 mg documented in this encounter Additional Health Concerns Assessment Noted Time PHQ-9 Depression Total Score: 0 09/11/19 9:15 AM EST A fall risk assessment has been complete d for the patient 12/20/2024 8:52 AM EDT A Body Mass Index follow-up plan has been documented for the patient 12/16/2024 12:23 PM EDT documented as of this encounter Care Teams Classics Professor Relationship Specialty Start Date End Date Zhao Harris MD [facility] [place] [address] PCP - General 12/03/20 documented as of this encounter
--- OUTSIDE RECORDS SUMMARY | 2024-12-21 08:30 | XMS_ITS | Encounter Summary ---
Author Organization [facility] Address [address] [place] [address] Care Team Providers Care Writer Technical Publications Name Role Phone Zhao Harris MD Primary Care Provider + [phone] Reason for Visit * Episode Based Medications (Routine) - Authorized Specialty Diagnoses / Procedures Referred By Justice mcgee Referred To Contact Diagnoses Myelodysplasia (myelodysplastic syndrome) (CMS/HCC) Procedures Azacitidine Daily x 7 / Venetoclax Every 28 Days Virgen Vargas MD [address] [address] Phone: tel: fax: Virgen Vargas MD [address] [address] Phone: tel: fax: Referral ID Status Reason Start Date Expiration Date V isits Requested Visits Authorized [id number] Authorized 10/20/2024 04/21/2026 1 91 Encounter Details Date Type Department Care Team (Latest Contact Info) Description 12/21/2024 8:30 AM EDT - 12/21/2024 11:59 PM EDT Hospital Encounter [facility] Infusion Clinic 1 [address] [place] [phone] Myelodysplasia (myelodysplastic syndrome) (CMS/HCC) (Primary Dx) Discharge [...] drink first t manav in the morning (EYE-EMPLOYEE COUNSELOR) to steady your nerves or to [...] 5 MG tabletIndications :Coronary artery disease involving [place] tribes heart with angina pectoris, unspecified vessel or lesion type (CMS/HCC),Hyperte nsion, unspecified type Take 1 tablet (5 mg) by mouth daily. 90 tablet 3 09/11/2024 HYDROcodone-aceta minophen ([place]) 5-325 MG tablet Take 1 tablet by [...] MG SL tabletIndications :Coronary artery disease involving [place] tribes heart with angina pectoris, unspecified vessel or [...] ([facility] st Contact Info) Description 01/13/2025 9:30 AM EDT Clinical Support [facility] Hematology/BMT and Cellular Therapy Program [address] [place] [phone] 01/13/2025 10:00 AM EDT Office Visit [facility] Hematology/BMT and Cellular Therapy Program [address] [phone] Isaura Wynn, ESTRELLA 800 [facility] [address] [place] [phone] 01/13/2025 11:30 AM EDT Appointment [facility] Infusion [address] [place] [address] 01/14/2025 2:00 PM EDT Appointment [facility] Infusion [address] [place] [address] 01/15/2025 2:00 PM EDT Appointment [facility] Infusion [address] [place] [address] 01/16/2025 2:00 PM EDT Appointment [facility] Infusion [address] [place] [address] 01/17/2025 2:00 PM EDT Appointment [facility] [address] [place] [address] 01/18/2025 2:00 PM EDT Appointment [facility] Infusion [address] [place] [address] 01/19/2025 2:00 PM EDT Appointment [facility] Infusion [address] [place] [address] 03/10/2025 11:20 AM EDT Office Visit [facility] Respiratory 800 [facility], [address] [place] [address] Elsa Razo, TOBACCO FEEDER CATCHER [address] [place] [address] documented as of this encounter Visit Diagnoses [...] documented as of this encounter Care Teams Writer Technical Publications Relationship Specialty Start Date End Date Zhao Harris MD [address] [place] [address] PCP - General 12/03/20 documented as of this encounter
--- OUTSIDE RECORDS SUMMARY | 2024-12-22 08:24 | XMS_ITS | Encounter Summary ---
Author Organization [facility] Address [address] [place] [address] Care Team Providers Care Plant Maintenance Mechanic Name Role Phone Zhao Harris MD Primary Care Provider + [phone] Reason for Visit * Episode Based Medications (Routine) - Authorized Specialty Diagnoses / Procedures Referred By Justice mcgee Referred To Contact Diagnoses Myelodysplasia (myelodysplastic syndrome) (CMS/HCC) Procedures Azacitidine Daily x 7 / Venetoclax Every 28 Days Virgen Vargas MD 800 [facility] Cancer [address] [address] Phone: tel: fax: Virgen Vargas MD [address] [address] Phone: tel: fax: Referral ID Status Reason Start Date Expiration Date V isits Requested Visits Authorized [id number] Authorized 10/20/2024 04/21/2026 1 91 Encounter Details Date Type Department Care Team (Latest Contact Info) Description 12/22/2024 8:24 AM EDT - 12/22/2024 9:57 AM EDT Hospital Encounter [facility] H Infusion [address] [place] [phone] Myelodysplasia (myelodysplastic syndrome) (CMS/HCC) (Primary Dx); Thrombocytopenia [...] drink first t manav in the morning (EYE-CONTRACTS INTERN) to steady your nerves or to [...] 5 MG tabletIndications :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, unspecified vessel or [...] Hematology/BMT and Cellular Therapy Program [address] [phone] 01/13/2025 10:00 AM EDT Office Visit PAV Hematology/BMT and Cellular Therapy Program [address] [phone] Isaura Wynn, ONCOLOGY NAVIGATOR 800 [facility] [address] [place] [phone] 01/13/2025 11:30 AM EDT Appointment P[facility] H Infusion [address] [place] [address] 01/14/2025 2:00 PM EDT Appointment [facility] H Infusion [address] [place] [address] 01/15/2025 2:00 PM EDT Appointment [facility] H Infusion [address] [place] [address] 01/16/2025 2:00 PM EDT Appointment [facility] H Infusion [address] [place] [address] 01/17/2025 2:00 PM EDT Appointment [facility] H Infusion [address] [place] [address] 01/18/2025 2:00 PM EDT Appointment [facility] H Infusion [address] [place] [address] 01/19/2025 2:00 PM EDT Appointment [facility] H Infusion [address] [place] [address] 03/10/2025 11:20 AM EDT Office Visit Pav CC Head, Neck & Respiratory 800 [facility], [address]nd [place] [address] Elsa Razo, ONCOLOGY NAVIGATOR [address] [place] [address] documented as of this encounter Procedures Procedure [...] Transfuse platelets (12/22/2024 12:04 PM EDT) Kayli Daly Bhavesh CHIU BLOOD TRANSFUSION ORDERA BLES Final Result * Transfuse platelets: 1 Units (12/22/2024 12:04 PM EDT) Kayli Daly Bhavesh CHIU BLOOD TRANSFUSION ORDERA BLES Final Result * (ABNORMAL) Platelet count (12/22/2024 10:57 AM EDT) Pathologist [facility] Platelet Count 36(L) 155 - 369 10*3/uL LAB HEMATOLOGY METHOD 12/22/2024 11:14 AM EDT [facility] Blood Venous blood specimen / Unknown Venipuncture / Unknown 12/22/2024 10:57 AM EDT 12/22/2024 11:04 AM EDT Virgen Vargas MD LAB BLOOD ORDERABLES Final Re sult Performing Organization Address City/[facility]/ZIP Co de Phone Number [facility] [address] [place] [address] * Prepare Leukocyte Reduced Platelets: 1 Units (12/22/2024 9:44 AM EDT) Pathologist [facility] Product Code [id number] CH BLOO D BANK Dispense Status Transfused BLOOD BANK Blood Expiration Date [id number] BLOOD BANK Unit Number [id number] CH B LOOD BANK Product Blood Type 0600 BLOOD BANK Blood Type A- CH BLOOD BANK Blood Venous blood specimen / Unknown Kayli Daly Bhavesh CHIU BLOOD BANK PRODUCT ORDER VIKAS Final Result Performing Organization Address City/[facility]/ZIP Co de Phone Number BLOOD BANK [address] [place] [address], * (ABNORMAL) CBC and Differential (12/22/2024 8:53 AM EDT) WBC Count 0.50(LL) 3.70 - 10.30 10*3/uL LAB HEMATOLOGY METHOD 12/22/2024 11:33 AM EDT [facility] RBC Count 2.90(L) 4.60 - 6.10 10*6/uL LAB HEMATOLOGY METHOD 12/22/2024 11:33 AM EDT [facility] HGB 8.9(L) 13.7 - 17.5 g/dL LAB HEMATOLOGY METHOD 12/22/2024 11:33 AM EDT [facility] HCT 25.0(L) 40.0 - 51.0 % LAB HEMATOLOGY METHOD 12/22/2024 11:33 AM EDT [facility] Platelet Count 5(LL) 155 - 369 10*3/uL LAB HEMATOLOGY METHOD 12/22/2024 11:33 AM EDT [facility] MCV 86 79 - 98 fL LAB HEMATOLOGY METHOD 12/22/2024 11:33 AM EDT [facility] MCH 30.7 26.0 - 32.0 pg LAB HEMATOLOGY METHOD 12/22/2024 11:33 AM EDT [facility] MCHC 35.6(H) 30.7 - 35.5 g/dL LAB HEMATOLOGY METHOD 12/22/2024 11:33 AM EDT [facility] RDW 15.6(H) 11.5 - 14.5 % LAB HEMATOLOGY METHOD 12/22/2024 11:33 AM EDT [facility] MPV LAB HEMATOLOGY METHOD 12/22/2024 11:33 AM EDT [facility] Comment:Not Measured nRBC 0.0 <=0.0 per 100 WBCs LAB HEMATOLOGY METHOD 12/22/2024 11:33 AM EDT [facility] Differential Type Automated LAB HEMATOLOGY METHOD 12/22/2024 11:33 AM EDT [facility] Neutrophils % 12 % LAB HEMATOLOGY METHOD 12/22/2024 11:33 AM EDT [facility] Lymphocytes % 86 % LAB HEMATOLOGY METHOD 12/22/2024 11:33 AM EDT [facility] Monocytes % 2 % LAB HEMATOLOGY METHOD 12/22/2024 11:33 AM EDT [facility] Eosinophils % 0 % LAB HEMATOLOGY METHOD 12/22/2024 11:33 AM EDT [facility] Basophils % 0 % LAB HEMATOLOGY METHOD 12/22/2024 11:33 AM EDT [facility] Immature Granulocytes % 0 % LAB HEMATOLOGY METHOD 12/22/2024 11:33 AM EDT [facility] Neutrophils Absolute 0.06(LL) 1.60 - 6.10 10*3/uL LAB HEMATOLOGY METHOD 12/22/2024 11:33 AM EDT [facility] Lymphocytes Absolute 0.43(L) 1.20 - 3.90 10*3/uL LAB HEMATOLOGY METHOD 12/22/2024 11:33 AM EDT [facility] Monocytes Absolute 0.01(L) 0.30 - 0.90 10*3/uL LAB HEMATOLOGY METHOD 12/22/2024 11:33 AM EDT [facility] Eosinophils Absolute 0.00 0.00 - 0.50 10*3/uL LAB HEMATOLOGY METHOD 12/22/2024 11:33 AM EDT [facility] Basophils Absolute 0.00 0.00 - 0.10 10*3/uL LAB HEMATOLOGY METHOD 12/22/2024 11:33 AM EDT [facility] Immature Granulocytes Absolute 0.00 0.00 - 0.06 10*3/uL LAB HEMATOLOGY METHOD 12/22/2024 11:33 AM EDT [facility] Blood Venous blood specimen / Unknown Venipuncture / Unknown 12/22/2024 8:53 AM EDT 12/22/2024 8:59 AM EDT Narrative [facility] - 12/22/2024 11:33 AM EDT Therapeutic decision making should be based on absolute values, rather than percentages. us Virgen Vargas MD LAB BLOOD ORDERABLES Final Re sult [facility] [address] [place] [address] * (ABNORMAL) Comprehensive Metabolic Panel, Plasma (12/22/2024 8:53 AM EDT) Glucose, Plasma 107(H) 74 - 99 mg/dL 12/22/2024 9:29 AM EDT [facility] BUN, Plasma 14 8 - 23 mg/dL 12/22/2024 9:29 AM EDT [facility] Creatinine, Plasma 0.93 0.70 - 1.20 mg/dL 12/22/2024 9:29 AM EDT [facility] BUN/Creatinine Ratio 15 12/22/2024 9:29 AM EDT [facility] Sodium, Plasma 136 136 - 145 mmol/L 12/22/2024 9:29 AM EDT [facility] Potassium, Plasma 4.3 3.6 - 4.9 mmol/L 12/22/2024 9:29 AM EDT [facility] Chloride, Plasma 106 97 - 107 mmol/L 12/22/2024 9:29 AM EDT [facility] CO2, Plasma 22 22 - 29 mmol/L 12/22/2024 9:29 AM EDT [facility] Anion Gap 8 6 - 16 mmol/L 12/22/2024 9:29 AM EDT [facility] Total Calcium, Plasma 9.1 8.9 - 10.2 mg/dL 12/22/2024 9:29 AM EDT [facility] Total Protein 7.0 6.3 - 7.9 g/dL 12/22/2024 9:29 AM EDT [facility] Albumin, Plasma 3.9 3.5 - 5.2 g/dL 12/22/2024 9:29 AM EDT [facility] AST, Plasma 16 10 - 50 U/L 12/22/2024 9:29 AM EDT [facility] ALT, Plasma 12 10 - 50 U/L 12/22/2024 9:29 AM EDT [facility] Alkaline Phosphatase, Plasma 83 40 - 115 U/L 12/22/2024 9:29 AM EDT [facility] Total Bilirubin, Plasma 0.7 0.2 - 1.1 mg/dL 12/22/2024 9:29 AM EDT [facility] eGFRcr 88.9 mL/min/1.7 3m*2 12/22/2024 9:29 AM EDT [facility] Comment:Reported eGFRcr in m L/min/1.73m2 is based the CKD-EPI 2020 equation that does not use a race coefficient. Blood Venous blood specimen / Unknown Venipuncture / Unknown 12/22/2024 8:53 AM EDT 12/22/2024 8:59 AM EDT us Virgen Vargas MD LAB BLOOD ORDERABLES Final Re sult [facility] [address] [place] [address] documented in this encounter Visit Diagnoses Diagnosis [...] documented as of this encounter Care Teams Plant Maintenance Mechanic Relationship Specialty Start Date End Date Zhao Harris MD [address] [facility] [address] [facility] [id number] [phone] PCP - General 12/03/20 documented as of this encounter
--- OUTSIDE RECORDS SUMMARY | 2024-12-22 09:58 | XMS_ITS | Encounter Summary ---
Author Organization Healthcare Address [address] [place] [address] Care Team Providers Care Infection Control Coordinator Name Role Phone Zhao Harris MD Primary Care Provider [phone] Encounter Details Date Type Department Care Team (Latest Contact Info) Description 12/22/2024 9:58 AM EDT - 12/22/2024 11:59 PM EDT Hospital Encounter [facility] [address] [place] [address] Myelodysplasia (myelodysplastic syndrome) (CMS/HCC) (Primary Dx) Discharge [...] drink first t manav in the morning (EYE-ROUTE DELIVERY CLERK) to steady your nerves or to [...] daily. 90 tablet 3 09/11/2024 HYDROcodone-aceta minophen ([place]) 5-325 MG tablet Take 1 tablet by [...] CC Hematology/BMT and Cellular Therapy Program 750 [facility] [place] [address] 01/13/2025 10:00 AM EDT Office Visit [facility] Hematology/BMT and Cellular Therapy Program 750 [facility] [place] [address] Isaura Wynn, COLLEGE SPORTS COACH 800 [facility] [address] [place] [phone] 01/13/2025 11:30 AM EDT Appointment [facility] 800 [place] [address] 01/14/2025 2:00 PM EDT Appointment [facility] 800 [place] [address] 01/15/2025 2:00 PM EDT Appointment [facility] 800 [place] [address] 01/16/2025 2:00 PM EDT Appointment [facility] 800 [place] [address] 01/17/2025 2:00 PM EDT Appointment [facility] [address] [place] [address] 01/18/2025 2:00 PM EDT Appointment [facility] 800 [place] [address] 01/19/2025 2:00 PM EDT Appointment [facility] 800 [place] [address] 03/10/2025 11:20 AM EDT Office Visit Pav CC Head, Neck & Respiratory 800 [facility], 2nd [place] [address] Elsa Razo, COLLEGE SPORTS COACH 800 [place] [phone] documented as of this encounter Visit Diagnoses [...] documented as of this encounter Care Teams Infection Control Coordinator Relationship Specialty Start Date End Date Zhao Harris MD [address] [place] [address] PCP - General 12/03/20 documented as of this encounter
--- OUTSIDE RECORDS SUMMARY | 2025-01-06 08:30 | XMS_ITS | Encounter Summary ---
Author Organization [facility] Address [address] [place] [address] Care Team Providers Care Wind Plant Manager Name Role Phone Zhao Harris MD Primary Care Provider [phone] Reason for Visit * Reason Comments Labs Encounter Details Date Type Department Care Team ([facility] st Contact Info) Description 01/06/2025 8:30 AM EDT Clinical Support PAV CC Hematology/BMT and Cellular Therapy Program [address] [place] [address] [place] [address] Nate Ponce RN Arrived Social History Tobacco Use Types Packs/Day Years [...] drink first t manav in the morning (EYE-REPAIRER SASH AND DOOR) to steady your nerves or to get [...] Hematology/BMT and Cellular Therapy Program [address] [address] 01/13/2025 10:00 AM EDT Office Visit PAV CC Hematology/BMT and Cellular Therapy Program [address] [address] Isaura Wynn, CONSIGNEE 800 [facility] [address] [place] [address] 01/13/2025 11:30 AM EDT Appointment PAV H Infusion 800 [place] [address] 01/14/2025 2:00 PM EDT Appointment P[facility] H Infusion 800 [place] [address] 01/15/2025 2:00 PM EDT Appointment P[facility] H Infusion 800 [place] [address] 01/16/2025 2:00 PM EDT Appointment P[facility] H Infusion [address] [place] [address] 01/17/2025 2:00 PM EDT Appointment P[facility] H Infusion [address] [place] [address] 01/18/2025 2:00 PM EDT Appointment P[facility] H Infusion 800 [place] [address] 01/19/2025 2:00 PM EDT Appointment P[facility] H Infusion 800 [place] [address] 03/10/2025 11:20 AM EDT Office Visit Pav CC Head, Neck & Respiratory 800 [facility], 2nd [place] [address] Elsa Razo, CONSIGNEE 800 [place] [address] documented as of this encounter Visit Diagnoses [...] documented as of this encounter Care Teams Wind Plant Manager Relationship Specialty Start Date End Date Zhao Harris MD [facility] [address] [address] PCP - General 12/03/20 documented as of this encounter
--- OUTSIDE RECORDS SUMMARY | 2025-01-06 09:00 | XMS_ITS | Encounter Summary ---
Author Organization [facility] Address [address] [place] [address] Care Team Providers Care What Job Titles Mean Name Role Phone Zhao Harris MD Primary Care Provider [phone] Reason for Visit * Reason Comments Procedure * Genetic Testing (Routine) - Authorized Specialty Diagnoses / Procedures Referred By Justice mcgee Referred To Contact Lab Diagnoses Myelodysplasia (myelodysplastic syndrome) (CMS/HCC) Procedures Leukemia/Lymphoma - Immunophenotyping by Flow Cytometry Virgen Vargas MD [address] [facility] Cancer [address] [address] Phone: tel: fax: Referral ID Status Reason Start Date Expiration Date V isits Requested Visits Authorized [id number] Authorized 12/18/2024 06/19/2026 1 1 Encounter Details Date Type Department Care Team (Latest Contact Info) Description 01/06/2025 9:00 AM EDT Procedure Visit [facility] CC Hematology/BMT and Cellular Therapy Program [address] [place] [address] Kierra Novak APRN 800 [facility] Cancer [address] [address] Myelodysplasia (myelodysplastic syndrome) (CMS/HCC) Social [...] drink first t manav in the morning (EYE-KEY PUNCH TEACHER) to steady your nerves or to [...] yes Risks discussed: Bleeding, infection and pain Pray protocol: Procedure explained and questions answered to [facility]) Description 01/13/2025 9:30 AM EDT Clinical Support [facility] Hematology/BMT and Cellular Therapy Program [address] [address] 01/13/2025 10:00 AM EDT Office Visit [facility] Hematology/BMT and Cellular Therapy Program [address] [address] Isaura Wynn APRN 800 [facility] [address] [place] [phone] 01/13/2025 11:30 AM EDT Appointment [facility] H Infusion [address] [place] [address] 01/14/2025 2:00 PM EDT Appointment [facility] H Infusion [address] [place] [address] 01/15/2025 2:00 PM EDT Appointment [facility] H Infusion [address] [place] [address] 01/16/2025 2:00 PM EDT Appointment [facility] H Infusion [address] [place] [address] 01/17/2025 2:00 PM EDT Appointment [facility] H Infusion [address] [place] [address] 01/18/2025 2:00 PM EDT Appointment [facility] H Infusion [address] [place] [address] 01/19/2025 2:00 PM EDT Appointment [facility] H Infusion [address] [place] [address] 03/10/2025 11:20 AM EDT Office Visit Pav CC Head, Neck & Respiratory 800 [facility], [address]nd [place] [address] Elsa Razo, DISTRICT ASSOCIATE JUDGE [address] [place] [address] Pending Results Name Type Priority Associated Diagnoses Date /Time Bone marrow exam Pathology and Cytology Routine Myelodysplasia (myelodysplastic syndrome) ([facility]/HCC) 01/06/2025 9:48 AM EDT documented as of this encounter Procedures Procedure Name Priority Date/Time Associated Diagnosis Comments BIOPSY BONE MARROW Routine 01/06/2025 10 :00 AM EDT Myelodysplasia (myelodysplastic syndrome) ([facility]) LEUKEMIA/LYMPHOMA - IMMUNOPHENOTYPING BY FLOW CYTOMETRY Routine 01/06/2025 9:48 AM EDT Myelodysplasia (myelodysplastic syndrome) ([facility]) CBC WITH AUTO DIFFERENTIAL Routine 01/06/2025 8:49 AM EDT Myelodysplasia (myelodysplastic syndrome) ([facility]) COMPREHENSIVE METABOLIC PANEL, PLASMA Routine 01/06/2025 8:49 [...] yes Risks discussed: Bleeding, infection and pain Pray protocol: Procedure explained and questions answered to [...] Clinical Indication AML 01/07/2025 10:18 AM EDT [facility] Flow Cytometry Interpretation APPROXIMATELY 16% MYELOID BLASTS; EXPRESSING CD34, CD117, CD13, CD33, HLA-DR, PARTIAL CD7, PARTIAL CD123, VARIABLE CD38, AND MODERATE CD45, SEE COMMENT, BONE MARROW ASPIRATE. 01/07/2025 10:18 AM EDT [facility] Comments [...] disease. Final interpretation requires morphologic correlation (BM [id number]). The following antibodies were used in this analysis: CD45, CD2, CD3, CD4, CD5, CD7, CD8, CD10, CD13, CD14, CD15, CD16, CD19, CD20, CD33, CD34, CD38, CD56, CD117, HLA-DR, kappa surface light chains, lambda surface light chains, CD123 01/07/2025 10:18 AM EDT [facility] Disclaimer This test was developed and its performance characteristics determined by the Immuno-Molecular Pathology Laboratory at the [facility]. It has not been cleared [...] clinical laboratory testing. 01/07/2025 10:18 AM EDT [facility] Pathologist Signature Reviewed by: Tessie Peralta MD 01/07/2025 10:18 AM EDT [facility] MRD Indicated Test Not Indicated 10:18 AM EDT [facility] Bone Marrow Specimen from bone marrow obtained by aspiration / Unknown Non-blood Collection / Unknown 01/06/2025 9:48 AM EDT 01/06/2025 11:20 AM EDT us Virgen Vargas MD LAB FLOW CYTOMETRY ORDERABLES Final Result [facility] [address] [place] [address] * (ABNORMAL) Comprehensive metabolic panel (01/06/2025 8:49 AM EDT) [facility] Glucose, Plasma 100(H) 74 - 99 mg/dL 01/06/2025 9:34 AM EDT [facility] BUN, Plasma 8 8 - 23 mg/dL 01/06/2025 9:34 AM EDT [facility] Creatinine, Plasma 0.76 0.70 - 1.20 mg/dL 01/06/2025 9:34 AM EDT [facility] BUN/Creatinine Ratio 11 01/06/2025 9:34 AM EDT [facility] Sodium, Plasma 138 136 - 145 mmol/L 01/06/2025 9:34 AM EDT [facility] Potassium, Plasma 4.3 3.6 - 4.9 mmol/L 01/06/2025 9:34 AM EDT [facility] Chloride, Plasma 109(H) 97 - 107 mmol/L 01/06/2025 9:34 AM EDT [facility] CO2, Plasma 21(L) 22 - 29 mmol/L 01/06/2025 9:34 AM EDT [facility] Anion Gap 8 6 - 16 mmol/L 01/06/2025 9:34 AM EDT [facility] Total Calcium, Plasma 8.8(L) 8.9 - 10.2 mg/dL 01/06/2025 9:34 AM EDT [facility] Total Protein 6.6 6.3 - 7.9 g/dL 01/06/2025 9:34 AM EDT [facility] Albumin, Plasma 3.9 3.5 - 5.2 g/dL 01/06/2025 9:34 AM EDT [facility] AST, Plasma 25 10 - 50 U/L 01/06/2025 9:34 AM EDT [facility] ALT, Plasma 28 10 - 50 U/L 01/06/2025 9:34 AM EDT [facility] Alkaline Phosphatase, Plasma 83 40 - 115 U/L 01/06/2025 9:34 AM EDT [facility] Total Bilirubin, Plasma 0.5 0.2 - 1.1 mg/dL 01/06/2025 9:34 AM EDT [facility] eGFRcr 97.3 mL/min/1.7 3m*2 01/06/2025 9:34 AM EDT [facility] Comment:Reported eGFRcr in m L/min/1.73m2 is based the CKD-EPI 2020 equation that does not use a race coefficient. Blood Venous blood specimen / Unknown Venipuncture / Unknown 01/06/2025 8:49 AM EDT 01/06/2025 9:01 AM EDT us Christina Ramos MD LAB BLOOD ORDERABLES Final Resul t [facility] [address] [place] [address] * (ABNORMAL) CBC and differential (01/06/2025 8:49 AM EDT) WBC Count 0.59(LL) 3.70 - 10.30 10*3/uL LAB HEMATOLOGY METHOD 01/06/2025 11:36 AM EDT [facility] RBC Count 2.95(L) 4.60 - 6.10 10*6/uL LAB HEMATOLOGY METHOD 01/06/2025 11:36 AM EDT [facility] HGB 8.8(L) 13.7 - 17.5 g/dL LAB HEMATOLOGY METHOD 01/06/2025 11:36 AM EDT [facility] HCT 25.3(L) 40.0 - 51.0 % LAB HEMATOLOGY METHOD 01/06/2025 11:36 AM EDT [facility] Platelet Count 75(L) 155 - 369 10*3/uL LAB HEMATOLOGY METHOD 01/06/2025 11:36 AM EDT [facility] MCV 86 79 - 98 fL LAB HEMATOLOGY METHOD 01/06/2025 11:36 AM EDT [facility] MCH 29.8 26.0 - 32.0 pg LAB HEMATOLOGY METHOD 01/06/2025 11:36 AM EDT [facility] MCHC 34.8 30.7 - 35.5 g/dL LAB HEMATOLOGY METHOD 01/06/2025 11:36 AM EDT [facility] RDW 14.6(H) 11.5 - 14.5 % LAB HEMATOLOGY METHOD 01/06/2025 11:36 AM EDT [facility] MPV 10.7 8.8 - 12.5 fL LAB HEMATOLOGY METHOD 01/06/2025 11:36 AM EDT [facility] nRBC 3.4(H) <=0.0 per 100 WBCs LAB HEMATOLOGY METHOD 01/06/2025 11:36 AM EDT [facility] Differential Type Automated LAB HEMATOLOGY METHOD 01/06/2025 11:36 AM EDT [facility] Neutrophils % 5 % LAB HEMATOLOGY METHOD 01/06/2025 11:36 AM EDT [facility] Lymphocytes % 88 % LAB HEMATOLOGY METHOD 01/06/2025 11:36 AM EDT [facility] Monocytes % 7 % LAB HEMATOLOGY METHOD 01/06/2025 11:36 AM EDT [facility] Eosinophils % 0 % LAB HEMATOLOGY METHOD 01/06/2025 11:36 AM EDT [facility] Basophils % 0 % LAB HEMATOLOGY METHOD 01/06/2025 11:36 AM EDT [facility] Immature Granulocytes % 0 % LAB HEMATOLOGY METHOD 01/06/2025 11:36 AM EDT [facility] Neutrophils Absolute 0.03(LL) 1.60 - 6.10 10*3/uL LAB HEMATOLOGY METHOD 01/06/2025 11:36 AM EDT [facility] Lymphocytes Absolute 0.52(L) 1.20 - 3.90 10*3/uL LAB HEMATOLOGY METHOD 01/06/2025 11:36 AM EDT [facility] Monocytes Absolute 0.04(L) 0.30 - 0.90 10*3/uL LAB HEMATOLOGY METHOD 01/06/2025 11:36 AM EDT [facility] Eosinophils Absolute 0.00 0.00 - 0.50 10*3/uL LAB HEMATOLOGY METHOD 01/06/2025 11:36 AM EDT [facility] Basophils Absolute 0.00 0.00 - 0.10 10*3/uL LAB HEMATOLOGY METHOD 01/06/2025 11:36 AM EDT [facility] Immature Granulocytes Absolute 0.00 0.00 - 0.06 10*3/uL LAB HEMATOLOGY METHOD 01/06/2025 11:36 AM EDT [facility] Blood Venous blood specimen / Unknown Venipuncture / Unknown 01/06/2025 8:49 AM EDT 01/06/2025 9:01 AM EDT Narrative [facility] - 01/06/2025 11:36 AM EDT Therapeutic decision making should be based on absolute values, rather than percentages. us Christina Ramos MD LAB BLOOD ORDERABLES Final Resul t [facility] [address] [place] [address] documented in this encounter Visit Diagnoses Diagnosis [...] documented as of this encounter Care Teams What Job Titles Mean Relationship Specialty Start Date End Date Zhao Harris MD [address] [place] [address] PCP - General 12/03/20 documented as of this encounter
[2025-01-09] VITALS (16 sets, daily range): BP systolic 108–144; BP diastolic 57–76; PULSE 54–67; RESP 16–17; TEMP 36.4–36.9; O2SAT 99–100; BMI 31.3
--- OUTSIDE RECORDS SUMMARY | 2025-01-09 08:14 | XMS_ITS | Encounter Summary ---
Author Organization [facility] Address [address] [place] [address] Care Team Providers Care Wrapper Stripper Name Role Phone Zhao Harris MD Primary Care Provider [phone] Encounter Details Date Type Department Care Team [...] drink first t manav in the morning (EYE-PAPER DELIVERER) to steady your nerves or to get [...] [facility] Info) Description 01/13/2025 9:30 AM EDT Clinical Support P[facility] CC Hematology/BMT and Cellular Therapy Program [address] [address] 01/13/2025 10:00 AM EDT Office Visit PAV CC Hematology/BMT and Cellular Therapy Program [address] [address] Isaura Wynn, CALL CENTER TEAM LEADER 800 [facility] [address] [place] [phone] 01/13/2025 11:30 AM EDT Appointment PAV H Infusion 800 [place] [address] 01/14/2025 2:00 PM EDT Appointment PAV H Infusion [address] [place] [address] 01/15/2025 2:00 PM EDT Appointment PAV H Infusion [address] [place] [address] 01/16/2025 2:00 PM EDT Appointment PAV H Infusion [address] [place] [address] 01/17/2025 2:00 PM EDT Appointment PAV H Infusion [address] [place] [address] 01/18/2025 2:00 PM EDT Appointment PAV H Infusion [address] [place] [address] 01/19/2025 2:00 PM EDT Appointment PAV H Infusion [address] [place] [address] 03/10/2025 11:20 AM EDT Office Visit Pav CC Head, Neck & Respiratory 800 [facility], [address]nd [place] [address] Elsa Razo, CALL CENTER TEAM LEADER [address] [place] [address] documented as of this encounter Visit Diagnoses [...] documented as of this encounter Care Teams Wrapper Stripper Relationship Specialty Start Date End Date Zhao Harris MD [address] [facility] [address] [place] [id number] PCP - General 12/03/20 documented as of this encounter
--- OUTSIDE RECORDS SUMMARY | 2025-01-09 08:14 | XMS_ITS | Encounter Summary ---
Author Organization [facility] Address [address] [place] [address] Care Team Providers Care Respiratory Support Technician Name Role Phone Zhao Harris MD Primary Care Provider [phone] Encounter Details Date Type Department Care Team ([facility] st Contact Info) Description 12/23/2024 Orders Only PAV CC Hematology/BMT and Cellular Therapy Program [address] [place] [address] [place] [address] Adam Conway RN [facility] Myelodysplasia (myelodysplastic syndrome) [...] drink first t manav in the morning (EYE-FRENCH PASTRY COOK) to steady your nerves or to get [...] [facility] CC Hematology/BMT and Cellular Therapy Program [address] [place] [phone] 01/13/2025 10:00 AM EDT Office Visit P[facility] CC Hematology/BMT and Cellular Therapy Program [address] [address] Isaura Wynn, BUFFET SERVER 800 [facility] [address] [place] [phone] 01/13/2025 11:30 AM EDT Appointment PAV H Infusion [address] [place] [address] 01/14/2025 2:00 PM EDT Appointment PAV H Infusion [address] [place] [address] 01/15/2025 2:00 PM EDT Appointment P[facility] H Infusion [address] [place] [address] 01/16/2025 2:00 PM EDT Appointment PAV H Infusion [address] [place] [address] 01/17/2025 2:00 PM EDT Appointment PAV H Infusion [address] [place] [address] 01/18/2025 2:00 PM EDT Appointment PAV H Infusion [address] [place] [address] 01/19/2025 2:00 PM EDT Appointment PAV H Infusion [address] [place] [address] 03/10/2025 11:20 AM EDT Office Visit Pav CC Head, Neck & Respiratory 800 [facility], [address]nd [place] [address] Elsa Razo, BUFFET SERVER 800 [place] [address] Scheduled Orders Name Type Priority Associated Diagnoses [...] documented as of this encounter Care Teams Respiratory Support Technician Relationship Specialty Start Date End Date Zhao Harris MD [address] [facility] [address] [place] [address] PCP - General 12/03/20 documented as of this encounter
--- OUTSIDE RECORDS SUMMARY | 2025-01-09 08:14 | XMS_ITS ---
Author Organization [facility] Address [address] [place] [address] Care Team Providers Care Orthotic Aide Name Role Phone Zhao Harris MD Primary Care Provider [phone] Active Problems Problem Noted Date Diagnosed Date [...] (CMS/HCC) Treatment Medications Current Day (Day 2 6, Cycle 3 - Planned for 01/10/2025) Next Day (Day 1, Cycle 4 - Planned for 01/13/2025) azaCITIDine (Vidaza)azaCITIDine (Vidaza) IVPBvenetoclax (Venclexta) No medications scheduled. azaCITIDine (Vidaza) 150 mg in sodium chloride 0.9 % 50 mL IVPBvenetoclax (Venclexta) 100 MG tablet HEM/BMT Blood Administration for Outpatient* Plan Start Date:10/22/2024 Plan Provider:Kayli Ospina PA Linked Problems Myelodysplasia (myelodysplas tic syndrome) (CMS/HCC)Thrombocytopenia (CMS/HCC) Treatment Medications No medications scheduled. Past [...]
--- OUTSIDE RECORDS SUMMARY | 2025-01-09 08:14 | XMS_ITS | Encounter Summary ---
Author Organization [facility] Address [address] [place] [address] Care Team Providers Care Business Services Sales Agent Name Role Phone Zhao Harris MD Primary Care Provider [phone] Reason for Visit * Reason Comments Med Refill Encounter Details Date Type Department Care Team ([facility] st Contact Info) Description 01/01/2025 Refill [facility] [place] 800 [facility]. [address] [place] [address] Ra Best MD [address] [place] [address] Social History Tobacco Use Types Packs/Day Years [...] drink first t manav in the morning (EYE-BRAKE REPAIRER BUS) to steady your nerves or to get [...] Date Type Department Care Team ([facility] Contact Info) Description 01/13/2025 9:30 AM EDT Clinical Support P[facility] CC Hematology/BMT and Cellular Therapy Program [address] [place] [phone] 01/13/2025 10:00 AM EDT Office Visit P[facility] CC Hematology/BMT and Cellular Therapy Program [address] [place] [phone] Isaura Wynn, BUSINESS BANKING REPRESENTATIVE 800 [facility] [address] [place] [phone] 01/13/2025 11:30 AM EDT Appointment PAV H Infusion 800 [place] [address] 01/14/2025 2:00 PM EDT Appointment PAV H Infusion [address] [place] [address] 01/15/2025 2:00 PM EDT Appointment PAV H Infusion [address] [place] [address] 01/16/2025 2:00 PM EDT Appointment P[facility] H Infusion [address] [place] [address] 01/17/2025 2:00 PM EDT Appointment P[facility] H Infusion [address] [place] [address] 01/18/2025 2:00 PM EDT Appointment P[facility] H Infusion [address] [place] [address] 01/19/2025 2:00 PM EDT Appointment P[facility] H Infusion [address] [place] [address] 03/10/2025 11:20 AM EDT Office Visit Pav CC Head, Neck & Respiratory 800 [facility], [address] [place] [phone] Elsa Razo, BUSINESS BANKING REPRESENTATIVE 800 [place] [address] documented as of this encounter Visit Diagnoses [...] as of this encounter Care Teams Business Services Sales Agent Relationship Specialty Start Date End Date Zhao Harris MD [address] [place] [address] PCP - General 12/03/20 documented as of this encounter
--- OUTSIDE RECORDS SUMMARY | 2025-01-09 08:14 | XMS_ITS | Encounter Summary ---
Author Organization [facility] Address [address] [place] [address] Care Team Providers Care Capital Markets Specialist Name Role Phone Zhao Harris MD Primary Care Provider [phone] Encounter Details Date Type Department Care Team [...] drink first t manav in the morning (EYE-PHOTO MACHINE OPERATOR) to steady your nerves or [...] [facility] st Contact Info) Description 01/13/2025 9:30 AM EDT Clinical Support P[facility] CC Hematology/BMT and Cellular Therapy Program [address] [address] 01/13/2025 10:00 AM EDT Office Visit P[facility] CC Hematology/BMT and Cellular Therapy Program [address] [address] Isaura Wynn, FISH PACKER 800 [facility] [address] [place] [phone] 01/13/2025 11:30 AM EDT Appointment P[facility] H Infusion 800 [place] [address] 01/14/2025 2:00 PM EDT Appointment [facility] H Infusion [address] [place] [address] 01/15/2025 2:00 PM EDT Appointment [facility] H Infusion [address] [place] [address] 01/16/2025 2:00 PM EDT Appointment [facility] H Infusion [address] [place] [address] 01/17/2025 2:00 PM EDT Appointment [facility] H Infusion [address] [place] [address] 01/18/2025 2:00 PM EDT Appointment [facility] H Infusion [address] [place] [address] 01/19/2025 2:00 PM EDT Appointment [facility] H Infusion [address] [place] [address] 03/10/2025 11:20 AM EDT Office Visit Pav CC Head, Neck & Respiratory 800 [facility], [address]nd [place] [address] Elsa Razo, FISH PACKER [address] [place] [address] documented as of this encounter Visit Diagnoses [...] documented as of this encounter Care Teams Capital Markets Specialist Relationship Specialty Start Date End Date Zhao Harris MD [address] [facility] [address] [place] [phone] PCP - General 12/03/20 documented as of this encounter
--- OUTSIDE RECORDS SUMMARY | 2025-01-09 08:16 | XMS_ITS | Encounter Summary ---
Author Organization [facility] Address [address] [place] [address] Care Team Providers Care Contact Center Agent Name Role Phone Zhao Harris MD Primary Care Provider [phone] Encounter Details Date Type Department Care Team [...] t manav in the morning (EYE-DIRECTOR OF MATERNITY SERVICES) to steady your nerves or to get [...] ([facility] st Contact Info) Description 01/13/2025 9:30 AM EDT Clinical Support PAV CC Hematology/BMT and Cellular Therapy Program [address] [address] 01/13/2025 10:00 AM EDT Office Visit PAV CC Hematology/BMT and Cellular Therapy Program [address] [address] Isaura Wynn, DAY PORTER 800 [facility] [address] [place] [phone] 01/13/2025 11:30 AM EDT Appointment PAV H Infusion 800 [place] [address] 01/14/2025 2:00 PM EDT Appointment P[facility] H Infusion 800 [place] [address] 01/15/2025 2:00 PM EDT Appointment [facility] H Infusion 800 [place] [address] 01/16/2025 2:00 PM EDT Appointment [facility] H Infusion 800 [place] [address] 01/17/2025 2:00 PM EDT Appointment [facility] H Infusion 800 [place] [address] 01/18/2025 2:00 PM EDT Appointment P[facility] H Infusion 800 [place] [address] 01/19/2025 2:00 PM EDT Appointment P[facility] H Infusion 800 [place] [address] 03/10/2025 11:20 AM EDT Office Visit Pav CC Head, Neck & Respiratory 800 [facility], 2nd [place] [address] Elsa Razo, DAY PORTER 800 [place] [address] documented as of this encounter Visit Diagnoses [...] documented as of this encounter Care Teams Contact Center Agent Relationship Specialty Start Date End Date Zhao Harris MD 1210 [facility] [address] [place] [id number] PCP - General 12/03/20 documented as of this encounter
--- OUTSIDE RECORDS SUMMARY | 2025-01-09 08:16 | XMS_ITS | Encounter Summary ---
Author Organization Healthcare Address [address] [place] [address] Care Team Providers Care Senior Payroll Specialist Name Role Phone Zhao Harris MD Primary Care Provider [phone] Encounter Details Date Type Department Care Team (Late st Contact Info) Description 12/04/2024 Telephone [facility] Interventional Radiology [address] [place] [address] Martha William Social History Tobacco [...] drink first t manav in the morning (EYE-DISTRICT CUSTOMS DIRECTOR) to steady your nerves or to [...] they need to bandage it. Requesting CB@ [phone] documented in this encounter Plan of Treatment Upcoming Encounters Date Type Department Care Team (Late st Contact Info) Description 01/13/2025 9:30 AM EDT Clinical Support P[facility] CC Hematology/BMT and Cellular Therapy Program 750 [facility] [address] 01/13/2025 10:00 AM EDT Office Visit PAV CC Hematology/BMT and Cellular Therapy Program 750 [facility], [address] [place] [phone] Isaura Wynn, CARTOGRAPHY SUPERVISOR 800 [facility] [address] [place] [phone] 01/13/2025 11:30 AM EDT Appointment PAV H Infusion 800 [place] [address] 01/14/2025 2:00 PM EDT Appointment P[facility] H Infusion 800 [place] [address] 01/15/2025 2:00 PM EDT Appointment [facility] H Infusion 800 [place] [address] 01/16/2025 2:00 PM EDT Appointment [facility] H Infusion 800 [place] [address] 01/17/2025 2:00 PM EDT Appointment [facility] H Infusion 800 [place] [address] 01/18/2025 2:00 PM EDT Appointment P[facility] H Infusion 800 [place] [address] 01/19/2025 2:00 PM EDT Appointment P[facility] H Infusion 800 [place] [address] 03/10/2025 11:20 AM EDT Office Visit Pav CC Head, Neck & Respiratory 800 [facility], 2nd [place] [address] Elsa Razo, CARTOGRAPHY SUPERVISOR 800 [place] [phone] documented as of this encounter Visit Diagnoses [...] as of this encounter Care Teams Senior Payroll Specialist Relationship Specialty Start Date End Date Zhao Harris MD [address] [place] [address] PCP - General 12/03/20 documented as of this encounter
--- OUTSIDE RECORDS SUMMARY | 2025-01-09 08:16 | XMS_ITS | Encounter Summary ---
Author Organization Healthcare Address [address] [place] [address] Care Team Providers Care Beater Tender Name Role Phone Zhao Harris MD Primary Care Provider [phone] Encounter Details Date Type Department Care Team [...] first t manav in the morning (EYE-HYDRAULIC SPINNER) to steady your nerves or to get [...] CC Hematology/BMT and Cellular Therapy Program [address] [address] 01/13/2025 10:00 AM EDT Office Visit PAV CC Hematology/BMT and Cellular Therapy Program [address] [address] Isaura Wynn, TRAFFIC SIGNAL REPAIRER 800 [facility] [address] [place] [address] 01/13/2025 11:30 AM EDT Appointment PAV H Infusion 800 [place] [address] 01/14/2025 2:00 PM EDT Appointment [facility] H Infusion 800 [place] [address] 01/15/2025 2:00 PM EDT Appointment P[facility] H Infusion 800 [place] [address] 01/16/2025 2:00 PM EDT Appointment [facility] H Infusion 800 [place] [address] 01/17/2025 2:00 PM EDT Appointment P[facility] H Infusion 800 [place] [address] 01/18/2025 2:00 PM EDT Appointment P[facility] H Infusion 800 [place] [address] 01/19/2025 2:00 PM EDT Appointment P[facility] H Infusion 800 [place] [address] 03/10/2025 11:20 AM EDT Office Visit Pav CC Head, Neck & Respiratory 800 [facility], 2nd [place] [address] Elsa Razo, TRAFFIC SIGNAL REPAIRER 800 [place] [address] documented as of this encounter Visit Diagnoses [...] documented as of this encounter Care Teams Beater Tender Relationship Specialty Start Date End Date Zhao Harris MD 1210 [facility] [address] [place] [id number] PCP - General 12/03/20 documented as of this encounter
--- OUTSIDE RECORDS SUMMARY | 2025-01-09 08:16 | XMS_ITS | Encounter Summary ---
Author Organization [facility] Address [address] [place] [address] Care Team Providers Care Advisory Application Developer Name Role Phone Zhao Harris MD Primary Care Provider [phone] Encounter Details Date Type Department Care Team [...] drink first t manav in the morning (EYE-ELEVATOR EXAMINER AND ADJUSTER) to steady your nerves or to [...] Upcoming Encounters Date Type Department Care Team ([facility] st Contact Info) Description 01/13/2025 9:30 AM EDT Clinical Support PAV CC Hematology/BMT and Cellular Therapy Program [address] [address] 01/13/2025 10:00 AM EDT Office Visit PAV CC Hematology/BMT and Cellular Therapy Program [address] [address] Isaura Wynn, TAPE EDITOR 800 [facility] [address] [place] [phone] 01/13/2025 11:30 AM EDT Appointment PAV H Infusion 800 [place] [address] 01/14/2025 2:00 PM EDT Appointment P[facility] H Infusion 800 [place] [address] 01/15/2025 2:00 PM EDT Appointment P[facility] H Infusion 800 [place] [address] 01/16/2025 2:00 PM EDT Appointment P[facility] H Infusion 800 [place] [address] 01/17/2025 2:00 PM EDT Appointment P[facility] H Infusion 800 [place] [address] 01/18/2025 2:00 PM EDT Appointment P[facility] H Infusion 800 [place] [address] 01/19/2025 2:00 PM EDT Appointment P[facility] H Infusion 800 [place] [address] 03/10/2025 11:20 AM EDT Office Visit Pav CC Head, Neck & Respiratory 800 [facility], 2nd [place] [address] Elsa Razo, TAPE EDITOR 800 [place] [address] documented as of this encounter Visit Diagnoses [...] documented as of this encounter Care Teams Advisory Application Developer Relationship Specialty Start Date End Date Zhao Harris MD 1210 [facility] [address] [place] [id number] PCP - General 12/03/20 documented as of this encounter
--- OUTSIDE RECORDS SUMMARY | 2025-01-09 08:16 | XMS_ITS | Encounter Summary ---
Author Organization [facility] Address [address] [place] [address] Care Team Providers Care Ditcher Operator Name Role Phone Zhao Harris MD Primary Care Provider [phone] Encounter Details Date Type Department Care Team ([facility] st Contact Info) Description 12/09/2024 Telephone PAV CC Hematology/BMT and Cellular Therapy Program [address] [place] [address] [place] [address] Essie Ricks RN [facility] Social History Tobacco [...] drink first t manav in the morning (EYE-ORDNANCE TRUCK INSTALLATION SUPERVISOR) to steady your nerves or to [...] ([facility] st Contact Info) Description 01/13/2025 9:30 AM EDT Clinical Support PAV CC Hematology/BMT and Cellular Therapy Program [address] [address] 01/13/2025 10:00 AM EDT Office Visit PAV CC Hematology/BMT and Cellular Therapy Program [address] [address] Isaura Wynn, ESTRELLA 800 [facility] [address] [place] [phone] 01/13/2025 11:30 AM EDT Appointment PAV H Infusion 800 [place] [address] 01/14/2025 2:00 PM EDT Appointment P[facility] H Infusion 800 [place] [address] 01/15/2025 2:00 PM EDT Appointment P[facility] H Infusion [address] [place] [address] 01/16/2025 2:00 PM EDT Appointment P[facility] H Infusion [address] [place] [address] 01/17/2025 2:00 PM EDT Appointment P[facility] H Infusion [address] [place] [address] 01/18/2025 2:00 PM EDT Appointment P[facility] H Infusion [address] [place] [address] 01/19/2025 2:00 PM EDT Appointment PAV H Infusion [address] [place] [address] 03/10/2025 11:20 AM EDT Office Visit Pav CC Head, Neck & Respiratory 800 [facility], 2nd [place] [address] Elsa Razo, RAILWAY TRACK WORKER 800 [place] [address] documented as of this encounter Visit Diagnoses [...] documented as of this encounter Care Teams Ditcher Operator Relationship Specialty Start Date End Date Zhao Harris MD [address] [place] [id number] PCP - General 12/03/20 documented as of this encounter
--- OUTSIDE RECORDS SUMMARY | 2025-01-09 08:17 | XMS_ITS | Encounter Summary ---
Author Organization [facility] Address [address] 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) Virgen Vargas MD [address] [address] Phone: tel:[phone] fax:[phone] [facility] Multidisciplinary Oncology Clinic 800 [place] [address] Phone: tel: fax: Referral ID Status Reason Start Date Expiration Date V isits Requested Visits Authorized [id number] Closed Specialty Services Required 12/11/2024 06/12/2026 1 1 Scheduling Instructions AML, evaluation for clinical trials * Consultation (Routine) - Closed Specialty Diagnoses / Procedures Referred By Justice mcgee Referred To Contact Medical Oncology Diagnoses 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) Virgen Vargas MD [address] [address] Phone: tel: fax: Referral ID Status Reason Start Date Expiration Date V isits Requested Visits Authorized [id number] Closed Specialty Services Required 12/11/2024 06/12/2026 1 1 Scheduling Instructions AML evaluation for clinical trials Encounter Details Date Type Department Care Team ([facility] Contact Info) Description 12/11/2024 Orders Only PAV CC Hematology/BMT and Cellular Therapy Program 750 [facility], [address] [place] [address] Shahla Mejia RN [facility] AMB SERV ADMIN Acute myeloid leukemia not [...] drink first t manav in the morning (EYE-FURNITURE REPAIRER) to steady your nerves or to [...] Upcoming Encounters Date Type Department Care Team ([facility] Contact Info) Description 01/13/2025 9:30 AM EDT Clinical Support PAV CC Hematology/BMT and Cellular Therapy Program 750 [facility], [address] [place] [address] 01/13/2025 10:00 AM EDT Office Visit PAV Hematology/BMT and Cellular Therapy Program 750 [facility], [facility] [place] [address] Isaura Wynn, MEDICAL ASSEMBLER 800 [facility] [address] [place] [phone] 01/13/2025 11:30 AM EDT Appointment PAV H Infusion 800 [place] [address] 01/14/2025 2:00 PM EDT Appointment PAV H Infusion [address] [place] [address] 01/15/2025 2:00 PM EDT Appointment PAV H Infusion [address] [place] [address] 01/16/2025 2:00 PM EDT Appointment P[facility] H Infusion [address] [place] [address] 01/17/2025 2:00 PM EDT Appointment P[facility] H Infusion [address] [place] [address] 01/18/2025 2:00 PM EDT Appointment P[facility] H Infusion [address] [place] [address] 01/19/2025 2:00 PM EDT Appointment PAV H Infusion [address] [place] [address] 03/10/2025 11:20 AM EDT Office Visit Pav CC Head, Neck & Respiratory 800 [facility], 2nd [place] [phone] Elsa Razo, MEDICAL ASSEMBLER 800 [place] [phone] Scheduled Referrals Name Type Priority Associated Diagnoses [...] as of this encounter Care Teams Flight Engineer Performance Qualified Relationship Specialty Start Date End Date Zhao Harris MD [address] [place] [address] PCP - General 12/03/20 documented as of this encounter
--- OUTSIDE RECORDS SUMMARY | 2025-01-09 08:17 | XMS_ITS | Encounter Summary ---
Author Organization [facility] Address [address] [place] [address] Care Team Providers Care Fashion Stylist Name Role Phone Zhao Harris MD Primary Care Provider [phone] Encounter Details Date Type Department Care Team [...] drink first t manav in the morning (EYE-SOCIAL RESEARCH ASSISTANT) to steady your nerves or [...] ([facility] st Contact Info) Description 01/13/2025 9:30 AM EDT Clinical Support PAV CC Hematology/BMT and Cellular Therapy Program [address] [address] 01/13/2025 10:00 AM EDT Office Visit PAV CC Hematology/BMT and Cellular Therapy Program [address] [address] Isaura Wynn, RELATIONSHIP COUNSELOR 800 [facility] [address] [place] [phone] 01/13/2025 11:30 AM EDT Appointment PAV H Infusion 800 [place] [address] 01/14/2025 2:00 PM EDT Appointment PAV H Infusion 800 [place] [address] 01/15/2025 2:00 PM EDT Appointment PAV H Infusion 800 [place] [address] 01/16/2025 2:00 PM EDT Appointment PAV H Infusion 800 [place] [address] 01/17/2025 2:00 PM EDT Appointment PAV H Infusion 800 [place] [address] 01/18/2025 2:00 PM EDT Appointment PAV H Infusion 800 [place] [address] 01/19/2025 2:00 PM EDT Appointment PAV H Infusion 800 [place] [address] 03/10/2025 11:20 AM EDT Office Visit Pav CC Head, Neck & Respiratory 800 [facility], 2nd [place] [address] Elsa Razo, RELATIONSHIP COUNSELOR 800 [place] [address] documented as of this encounter Visit Diagnoses [...] documented as of this encounter Care Teams Fashion Stylist Relationship Specialty Start Date End Date Zhao Harris MD 1210 [facility] [address] [place] [id number] PCP - General 12/03/20 documented as of this encounter
--- OUTSIDE RECORDS SUMMARY | 2025-01-09 08:17 | XMS_ITS | Encounter Summary ---
Author Organization [facility] Address [address] [place] [address] Care Team Providers Care Retirement Benefits Specialist Name Role Phone Zhao Harris MD Primary Care Provider [phone] Encounter Details Date Type Department Care Team [...] t manav in the morning (EYE-DIRECTOR OF STRATEGIC PARTNERSHIPS) to steady your nerves or to get [...] ([facility] st Contact Info) Description 01/13/2025 9:30 AM EDT Clinical Support PAV CC Hematology/BMT and Cellular Therapy Program [address] [address] 01/13/2025 10:00 AM EDT Office Visit PAV CC Hematology/BMT and Cellular Therapy Program [address] [address] Isaura Wynn, TITLE ONE KINDERGARTEN TEACHER 800 [facility] [address] [place] [phone] 01/13/2025 11:30 AM EDT Appointment PAV H Infusion 800 [place] [address] 01/14/2025 2:00 PM EDT Appointment PAV H Infusion 800 [place] [address] 01/15/2025 2:00 PM EDT Appointment PAV H Infusion 800 [place] [address] 01/16/2025 2:00 PM EDT Appointment P[facility] H Infusion 800 [place] [address] 01/17/2025 2:00 PM EDT Appointment P[facility] H Infusion 800 [place] [address] 01/18/2025 2:00 PM EDT Appointment PAV H Infusion 800 [place] [address] 01/19/2025 2:00 PM EDT Appointment PAV H Infusion 800 [place] [address] 03/10/2025 11:20 AM EDT Office Visit Pav CC Head, Neck & Respiratory 800 [facility], 2nd [place] [address] Elsa Razo, TITLE ONE KINDERGARTEN TEACHER 800 [place] [address] documented as of this encounter Visit Diagnoses [...] documented as of this encounter Care Teams Retirement Benefits Specialist Relationship Specialty Start Date End Date Zhao Harris MD 1210 [facility] [address] [place] [phone] PCP - General 12/03/20 documented as of this encounter
--- OUTSIDE RECORDS SUMMARY | 2025-01-09 08:18 | XMS_ITS | Encounter Summary ---
Author Organization [employer] Address [address] [place] [address] Care Team Providers Care Single Stroke Preformer Name Role Phone Unavailable Primary Care Provider Unavailabl e Encounter Details Date Type Department Care Team (Late st Contact Info) Description 07/10/2019 Transcribed Document [facility] Family Medicine [facility] [place] [address] ProviderBrigida MD [address] [place] [address] Social History Tobacco Use Types Packs/Day [...] Brigida Vega MD - 07/10/2019 9:18 AM TEST LAB TECHNICIAN Patient Education Materials Follows: Local Anesthesia, Care [...] activities are safe for you. ??? Take jkte-opr-kcplnzb and prescription medicines only as told by [...] 12/28/2017 Document Revised: 03/07/2018 Document Reviewed: 12/28/2017 01[employer] Patient Education ? 2019 01[employer] General Anesthesia, Adult, Care After This [...] activities are safe for you. ??? Take awsp-wgn-tkgsobq and prescription medicines only as told by [...] 10/15/2001 Document Revised: 02/22/2018 Document Reviewed: 02/22/2018 01[employer] Patient Education ? 2019 01[employer] Knee Arthroscopy, Care After Refer to [...] activities are safe for you. ??? Perform cirud-mr-zajcwc exercises only as directed by your health [...] 01/26/2006 Document Revised: 12/08/2016 Document Reviewed: 07/05/2015 [employer] Interactive Patient Education ? 2018 01[employer] documented in this encounter Plan of Treatment Not on file documented as of this encounter Visit Diagnoses Not on filedocumented in this encounter
--- OUTSIDE RECORDS SUMMARY | 2025-01-09 08:18 | XMS_ITS | Encounter Summary ---
Author Organization [facility] Address [address] [place] [address] Care Team Providers Care Basket Machine Operator Name Role Phone Zhao Harris MD Primary Care Provider [phone] Encounter Details Date Type Department Care Team ([facility] st Contact Info) Description 12/12/2024 Orders Only PAV CC Hematology/BMT and Cellular Therapy Program [address] [place] [address] [place] [address] [facility] Social History Tobacco Use [...] drink first t manav in the morning (EYE-TALENT ACQUISITION PROGRAM MANAGER) to steady your nerves or to [...] Hematology/BMT and Cellular Therapy Program [address] [address] 01/13/2025 10:00 AM EDT Office Visit PAV CC Hematology/BMT and Cellular Therapy Program [address] [address] Isaura Wynn, FISHER POUND NET OR TRAP 800 [facility] [address] [place] [address] 01/13/2025 11:30 AM EDT Appointment PAV H Infusion 800 [place] [address] 01/14/2025 2:00 PM EDT Appointment P[facility] H Infusion 800 [place] [address] 01/15/2025 2:00 PM EDT Appointment P[facility] H Infusion 800 [place] [address] 01/16/2025 2:00 PM EDT Appointment P[facility] H Infusion 800 [place] [address] 01/17/2025 2:00 PM EDT Appointment P[facility] H Infusion 800 [place] [address] 01/18/2025 2:00 PM EDT Appointment P[facility] H Infusion 800 [place] [address] 01/19/2025 2:00 PM EDT Appointment P[facility] H Infusion 800 [place] [address] 03/10/2025 11:20 AM EDT Office Visit Pav CC Head, Neck & Respiratory 800 [facility], 2nd [place] [address] Elsa Razo, FISHER POUND NET OR TRAP 800 [place] [address] documented as of this encounter Visit Diagnoses [...] documented as of this encounter Care Teams Basket Machine Operator Relationship Specialty Start Date End Date Zhao Harris MD [address] [address] PCP - General 12/03/20 documented as of this encounter
--- OUTSIDE RECORDS SUMMARY | 2025-01-09 08:18 | XMS_ITS | Encounter Summary ---
Author Organization [facility] Address [address] [place] [address] Care Team Providers Care Puncher And Fastener Name Role Phone Zhao Harris MD Primary Care Provider [phone] Encounter Details Date Type Department Care Team ([facility] st Contact Info) Description 12/16/2024 Orders Only [facility] CC Hematology/BMT and Cellular Therapy Program [address] [address] Christina Ramos MD 800 [facility] 1st [place] [address] Myelodysplasia (myelodysplastic syndrome) (CMS/HCC) (Primary Dx) Social [...] drink first t manav in the morning (EYE-SAS ANALYST) to steady your nerves or to [...] CC Hematology/BMT and Cellular Therapy Program [address] [place] [phone] 01/13/2025 10:00 AM EDT Office Visit [facility] Hematology/BMT and Cellular Therapy Program [address] [address] Isaura Wynn, BARREL MARKER 800 [facility] [address] [place] [phone] 01/13/2025 11:30 AM EDT Appointment [facility] H Infusion [address] [place] [address] 01/14/2025 2:00 PM EDT Appointment [facility]fusion [address] [place] [address] 01/15/2025 2:00 PM EDT Appointment [facility]fusion [address] [place] [address] 01/16/2025 2:00 PM EDT Appointment [facility] Infusion [address] [place] [address] 01/17/2025 2:00 PM EDT Appointment [facility]fusion [address] [place] [address] 01/18/2025 2:00 PM EDT Appointment [facility] Infusion [address] [place] [address] 01/19/2025 2:00 PM EDT Appointment [facility] Infusion [address] [place] [address] 03/10/2025 11:20 AM EDT Office Visit Pav CC Head, Neck & Respiratory 800 [facility], 2nd [place] [address] Elsa Razo, BARREL MARKER [address] [place] [phone] Scheduled Orders Name Type Priority Associated Diagnoses Orde r Schedule CBC and differential Lab Routine Myelodysplasia (myelodysplastic syndrome) ([facility]) Expected: 12/23/2024, Expires: 12/23/2025 Comprehensive metabolic panel Lab Routine Myelodysplasia (myelodysplastic syndrome) ([facility]) Expected: 12/23/2024, Expires: 12/23/2025 CBC and differential Lab Routine Myelodysplasia (myelodysplastic syndrome) ([facility]/HCC) Expected: 12/25/2024, Expires: 12/25/2025 CBC and differential Lab Routine Myelodysplasia (myelodysplastic syndrome) ([facility]/HCC) Expected: 12/27/2024, Expires: 12/27/2025 CBC and differential Lab Routine Myelodysplasia (myelodysplastic syndrome) ([facility]/HCC) Expected: 12/30/2024, Expires: 12/30/2025 Comprehensive metabolic panel Lab Routine Myelodysplasia (myelodysplastic syndrome) ([facility]/HCC) Expected: 12/30/2024, Expires: 12/30/2025 CBC and differential Lab Routine Myelodysplasia (myelodysplastic syndrome) ([facility]CC) Expected: 01/01/2025, Expires: 01/01/2026 CBC and differential Lab Routine Myelodysplasia (myelodysplastic syndrome) ([facility]CC) Expected: 01/03/2025, Expires: 01/03/2026 CBC and differential Lab Routine Myelodysplasia (myelodysplastic syndrome) ([facility]/HCC) Expected: 01/08/2025, Expires: 01/08/2026 CBC and differential Lab Routine Myelodysplasia (myelodysplastic syndrome) ([facility]/HCC) Expected: 01/10/2025, Expires: 01/10/2026 documented as of this encounter Results * (ABNORMAL) Comprehensive metabolic panel (01/06/2025 8:49 AM EDT) Glucose, Plasma 100(H) 74 - 99 mg/dL 01/06/2025 9:34 AM EDT [facility] BUN, Plasma 8 8 - 23 mg/dL 01/06/2025 9:34 AM EDT [facility] Creatinine, Plasma 0.76 0.70 - 1.20 mg/dL 01/06/2025 9:34 AM EDT [facility] BUN/Creatinine Ratio 11 01/06/2025 9:34 AM EDT [facility] Sodium, Plasma 138 136 - 145 mmol/L 01/06/2025 9:34 AM EDT [facility] Potassium, Plasma 4.3 3.6 - 4.9 mmol/L 01/06/2025 9:34 AM EDT [facility] Chloride, Plasma 109(H) 97 - 107 mmol/L 01/06/2025 9:34 AM EDT [facility] CO2, Plasma 21(L) 22 - 29 mmol/L 01/06/2025 9:34 AM EDT [facility] Anion Gap 8 6 - 16 mmol/L 01/06/2025 9:34 AM EDT [facility] Total Calcium, Plasma 8.8(L) 8.9 - 10.2 mg/dL 01/06/2025 9:34 AM EDT [facility] Total Protein 6.6 6.3 - 7.9 g/dL 01/06/2025 9:34 AM EDT [facility] Albumin, Plasma 3.9 3.5 - 5.2 g/dL 01/06/2025 9:34 AM EDT [facility] AST, Plasma 25 10 - 50 U/L 01/06/2025 9:34 AM EDT [facility] ALT, Plasma 28 10 - 50 U/L 01/06/2025 9:34 AM EDT [facility] Alkaline Phosphatase, Plasma 83 40 - 115 U/L 01/06/2025 9:34 AM EDT [facility] Total Bilirubin, Plasma 0.5 0.2 - 1.1 mg/dL 01/06/2025 9:34 AM EDT [facility] eGFRcr 97.3 mL/min/1.7 3m*2 01/06/2025 9:34 AM EDT [facility] Comment:Reported eGFRcr in m L/min/1.73m2 is based the CKD-EPI 2020 equation that does not use a race coefficient. Blood Venous blood specimen / Unknown Venipuncture / Unknown 01/06/2025 8:49 AM EDT 01/06/2025 9:01 AM EDT us Christina Ramos MD LAB BLOOD ORDERABLES Final Resul t [facility] [address] [place] [address] * (ABNORMAL) CBC and differential (01/06/2025 8:49 AM EDT) WBC Count 0.59(LL) 3.70 - 10.30 10*3/uL LAB HEMATOLOGY METHOD 01/06/2025 11:36 AM EDT [facility] RBC Count 2.95(L) 4.60 - 6.10 10*6/uL LAB HEMATOLOGY METHOD 01/06/2025 11:36 AM EDT [facility] HGB 8.8(L) 13.7 - 17.5 g/dL LAB HEMATOLOGY METHOD 01/06/2025 11:36 AM EDT [facility] HCT 25.3(L) 40.0 - 51.0 % LAB HEMATOLOGY METHOD 01/06/2025 11:36 AM EDT [facility] Platelet Count 75(L) 155 - 369 10*3/uL LAB HEMATOLOGY METHOD 01/06/2025 11:36 AM EDT [facility] MCV 86 79 - 98 fL LAB HEMATOLOGY METHOD 01/06/2025 11:36 AM EDT [facility] MCH 29.8 26.0 - 32.0 pg LAB HEMATOLOGY METHOD 01/06/2025 11:36 AM EDT [facility] MCHC 34.8 30.7 - 35.5 g/dL LAB HEMATOLOGY METHOD 01/06/2025 11:36 AM EDT [facility] RDW 14.6(H) 11.5 - 14.5 % LAB HEMATOLOGY METHOD 01/06/2025 11:36 AM EDT [facility] MPV 10.7 8.8 - 12.5 fL LAB HEMATOLOGY METHOD 01/06/2025 11:36 AM EDT [facility] nRBC 3.4(H) <=0.0 per 100 WBCs LAB HEMATOLOGY METHOD 01/06/2025 11:36 AM EDT [facility] Differential Type Automated LAB HEMATOLOGY METHOD 01/06/2025 11:36 AM EDT [facility] Neutrophils % 5 % LAB HEMATOLOGY METHOD 01/06/2025 11:36 AM EDT [facility] Lymphocytes % 88 % LAB HEMATOLOGY METHOD 01/06/2025 11:36 AM EDT [facility] Monocytes % 7 % LAB HEMATOLOGY METHOD 01/06/2025 11:36 AM EDT [facility] Eosinophils % 0 % LAB HEMATOLOGY METHOD 01/06/2025 11:36 AM EDT [facility] Basophils % 0 % LAB HEMATOLOGY METHOD 01/06/2025 11:36 AM EDT [facility] Immature Granulocytes % 0 % LAB HEMATOLOGY METHOD 01/06/2025 11:36 AM EDT [facility] Neutrophils Absolute 0.03(LL) 1.60 - 6.10 10*3/uL LAB HEMATOLOGY METHOD 01/06/2025 11:36 AM EDT [facility] Lymphocytes Absolute 0.52(L) 1.20 - 3.90 10*3/uL LAB HEMATOLOGY METHOD 01/06/2025 11:36 AM EDT [facility] Monocytes Absolute 0.04(L) 0.30 - 0.90 10*3/uL LAB HEMATOLOGY METHOD 01/06/2025 11:36 AM EDT [facility] Eosinophils Absolute 0.00 0.00 - 0.50 10*3/uL LAB HEMATOLOGY METHOD 01/06/2025 11:36 AM EDT [facility] Basophils Absolute 0.00 0.00 - 0.10 10*3/uL LAB HEMATOLOGY METHOD 01/06/2025 11:36 AM EDT [facility] Immature Granulocytes Absolute 0.00 0.00 - 0.06 10*3/uL LAB HEMATOLOGY METHOD 01/06/2025 11:36 AM EDT [facility] Blood Venous blood specimen / Unknown Venipuncture / Unknown 01/06/2025 8:49 AM EDT 01/06/2025 9:01 AM EDT Narrative [facility] - 01/06/2025 11:36 AM EDT Therapeutic decision making should be based on absolute values, rather than percentages. us Christina Ramos MD LAB BLOOD ORDERABLES Final Resul t [facility] [address] [place] [address] * (ABNORMAL) CBC and differential (12/20/2024 9:00 AM EDT) WBC Count 0.59(LL) 3.70 - 10.30 10*3/uL LAB HEMATOLOGY METHOD 12/20/2024 10:25 AM EDT [facility] RBC Count 2.46(L) 4.60 - 6.10 10*6/uL LAB HEMATOLOGY METHOD 12/20/2024 10:25 AM EDT [facility] HGB 7.8(L) 13.7 - 17.5 g/dL LAB HEMATOLOGY METHOD 12/20/2024 10:25 AM EDT [facility] HCT 22.0(L) 40.0 - 51.0 % LAB HEMATOLOGY METHOD 12/20/2024 10:25 AM EDT [facility] Platelet Count 22(L) 155 - 369 10*3/uL LAB HEMATOLOGY METHOD 12/20/2024 10:25 AM EDT [facility] MCV 89 79 - 98 fL LAB HEMATOLOGY METHOD 12/20/2024 10:25 AM EDT [facility] MCH 31.7 26.0 - 32.0 pg LAB HEMATOLOGY METHOD 12/20/2024 10:25 AM EDT [facility] MCHC 35.5 30.7 - 35.5 g/dL LAB HEMATOLOGY METHOD 12/20/2024 10:25 AM EDT [facility] RDW 16.0(H) 11.5 - 14.5 % LAB HEMATOLOGY METHOD 12/20/2024 10:25 AM EDT [facility] MPV 11.3 8.8 - 12.5 fL LAB HEMATOLOGY METHOD 12/20/2024 10:25 AM EDT [facility] nRBC 0.0 <=0.0 per 100 WBCs LAB HEMATOLOGY METHOD 12/20/2024 10:25 AM EDT [facility] Differential Type Automated LAB HEMATOLOGY METHOD 12/20/2024 10:25 AM EDT [facility] Neutrophils % 5 % LAB HEMATOLOGY METHOD 12/20/2024 10:25 AM EDT [facility] Lymphocytes % 92 % LAB HEMATOLOGY METHOD 12/20/2024 10:25 AM EDT [facility] Monocytes % 3 % LAB HEMATOLOGY METHOD 12/20/2024 10:25 AM EDT [facility] Eosinophils % 0 % LAB HEMATOLOGY METHOD 12/20/2024 10:25 AM EDT [facility] Basophils % 0 % LAB HEMATOLOGY METHOD 12/20/2024 10:25 AM EDT [facility] Immature Granulocytes % 0 % LAB HEMATOLOGY METHOD 12/20/2024 10:25 AM EDT [facility] Neutrophils Absolute 0.03(LL) 1.60 - 6.10 10*3/uL LAB HEMATOLOGY METHOD 12/20/2024 10:25 AM EDT [facility] Lymphocytes Absolute 0.54(L) 1.20 - 3.90 10*3/uL LAB HEMATOLOGY METHOD 12/20/2024 10:25 AM EDT [facility] Monocytes Absolute 0.02(L) 0.30 - 0.90 10*3/uL LAB HEMATOLOGY METHOD 12/20/2024 10:25 AM EDT [facility] Eosinophils Absolute 0.00 0.00 - 0.50 10*3/uL LAB HEMATOLOGY METHOD 12/20/2024 10:25 AM EDT [facility] Basophils Absolute 0.00 0.00 - 0.10 10*3/uL LAB HEMATOLOGY METHOD 12/20/2024 10:25 AM EDT [facility] Immature Granulocytes Absolute 0.00 0.00 - 0.06 10*3/uL LAB HEMATOLOGY METHOD 12/20/2024 10:25 AM EDT [facility] Blood Blood sample taken from central line / Unknown (Central Line) Existing Catheter / Unknown 12/20/2024 9:00 AM EDT 12/20/2024 9:13 AM EDT Narrative [facility] - 12/20/2024 10:25 AM EDT Therapeutic decision making should be based on absolute values, rather than percentages. us Christina Ramos MD LAB BLOOD ORDERABLES Final Resul t [facility] [address] [place] [address] * (ABNORMAL) CBC and differential (12/18/2024 9:14 AM EDT) WBC Count 0.51(LL) 3.70 - 10.30 10*3/uL LAB HEMATOLOGY METHOD 12/18/2024 10:49 AM EDT [facility] RBC Count 2.50(L) 4.60 - 6.10 10*6/uL LAB HEMATOLOGY METHOD 12/18/2024 10:49 AM EDT [facility] HGB 8.1(L) 13.7 - 17.5 g/dL LAB HEMATOLOGY METHOD 12/18/2024 10:49 AM EDT [facility] HCT 21.9(L) 40.0 - 51.0 % LAB HEMATOLOGY METHOD 12/18/2024 10:49 AM EDT [facility] Platelet Count 6(LL) 155 - 369 10*3/uL LAB HEMATOLOGY METHOD 12/18/2024 10:49 AM EDT [facility] MCV 88 79 - 98 fL LAB HEMATOLOGY METHOD 12/18/2024 10:49 AM EDT [facility] MCH 32.4(H) 26.0 - 32.0 pg LAB HEMATOLOGY METHOD 12/18/2024 10:49 AM EDT [facility] MCHC 37.0(H) 30.7 - 35.5 g/dL LAB HEMATOLOGY METHOD 12/18/2024 10:49 AM EDT [facility] RDW 16.7(H) 11.5 - 14.5 % LAB HEMATOLOGY METHOD 12/18/2024 10:49 AM EDT [facility] MPV LAB HEMATOLOGY METHOD 12/18/2024 10:49 AM EDT [facility] Comment:Not Measured nRBC 0.0 <=0.0 per 100 WBCs LAB HEMATOLOGY METHOD 12/18/2024 10:49 AM EDT [facility] Differential Type Automated LAB HEMATOLOGY METHOD 12/18/2024 10:49 AM EDT [facility] Neutrophils % 6 % LAB HEMATOLOGY METHOD 12/18/2024 10:49 AM EDT [facility] Lymphocytes % 90 % LAB HEMATOLOGY METHOD 12/18/2024 10:49 AM EDT [facility] Monocytes % 4 % LAB HEMATOLOGY METHOD 12/18/2024 10:49 AM EDT [facility] Eosinophils % 0 % LAB HEMATOLOGY METHOD 12/18/2024 10:49 AM EDT [facility] Basophils % 0 % LAB HEMATOLOGY METHOD 12/18/2024 10:49 AM EDT [facility] Immature Granulocytes % 0 % LAB HEMATOLOGY METHOD 12/18/2024 10:49 AM EDT [facility] Neutrophils Absolute 0.03(LL) 1.60 - 6.10 10*3/uL LAB HEMATOLOGY METHOD 12/18/2024 10:49 AM EDT [facility] Lymphocytes Absolute 0.46(L) 1.20 - 3.90 10*3/uL LAB HEMATOLOGY METHOD 12/18/2024 10:49 AM EDT [facility] Monocytes Absolute 0.02(L) 0.30 - 0.90 10*3/uL LAB HEMATOLOGY METHOD 12/18/2024 10:49 AM EDT [facility] Eosinophils Absolute 0.00 0.00 - 0.50 10*3/uL LAB HEMATOLOGY METHOD 12/18/2024 10:49 AM EDT [facility] Basophils Absolute 0.00 0.00 - 0.10 10*3/uL LAB HEMATOLOGY METHOD 12/18/2024 10:49 AM EDT [facility] Immature Granulocytes Absolute 0.00 0.00 - 0.06 10*3/uL LAB HEMATOLOGY METHOD 12/18/2024 10:49 AM EDT [facility] Blood Blood sample taken from central line / Unknown Venipuncture / Unknown 12/18/2024 9:14 AM EDT 12/18/2024 9:20 AM EDT [facility] - 12/18/2024 10:49 AM EDT Therapeutic decision making should be based on absolute values, rather than percentages. Christina Ramos MD LAB BLOOD ORDERABLES Final Resul t [facility] [address] [place] [address] documented in this encounter Visit Diagnoses Diagnosis [...] documented as of this encounter Care Teams Puncher And Fastener Relationship Specialty Start Date End Date Zhao Harris MD [address] [place] [address] PCP - General 12/03/20 documented as of this encounter
--- OUTSIDE RECORDS SUMMARY | 2025-01-09 08:19 | XMS_ITS | Encounter Summary ---
Author Organization [employer] Address [address] [place] [address] Care Team Providers Care Information Writer Name Role Phone Unavailable Primary Care Provider Unavailabl e Encounter Details Date Type Department Care Team (Late st Contact Info) Description 07/10/2019 Transcribed Document [facility] [facility] [place] [address] ProviderBrigida MD [address] [place] [phone] Social History Tobacco Use Types Packs/Day [...] - Historical ProviderMD - 07/10/2019 7:57 AM PARTS BACK COUNTER MAN [facility] PostOp Summary Primary Physician: SURY SHARMA MD-ORGenia Finalized Date/Time: 07/10/19 10:03:33 Pt. Name: HUGO AGUILAR JR, D.O.B./Sex: 1955 Male Med Rec #: [id number] Physician: SURY SHARMA MD-ORT Financial #: [id number] Pt. Type: O Room/Bed: Admit/Disch: 07/10/19 05:55:00 - Institution: [facility] PostOp Case Times Entry 1 In PACU II 07/10/19 09:10:00 Ready for PACU II 07/10/19 10:00:00 Discharge Discharge from PACU 07/10/19 10:00:00 II Last Modified By: Laquita Romero RN 07/10/19 10:03:30 [facility] PostOp Case Times Audit 07/10/19 10:03:30 Splash Line Operator: [id number] Modifier: [id number] <+> 1 Ready for PACU II Discharge <+> 1 Discharge from PACU II Finalized By: Laquita Romero RN Document Signatures Signed By: Laquita Romero RN 07/10/19 10:03 documented in this encounter Plan of Treatment Not on file documented as of this encounter Visit Diagnoses Not on filedocumented in this encounter
--- OUTSIDE RECORDS SUMMARY | 2025-01-09 08:19 | XMS_ITS | Encounter Summary ---
Author Organization [employer] Address [address] [place] [address] Care Team Providers Care Plastic Mixer Name Role Phone Unavailable Primary Care Provider Unavailabl e Encounter Details Date Type Department Care Team (Late st Contact Info) Description 07/10/2019 Transcribed Document [facility] [place] [facility] [place] [address] ProviderBrigida MD [address] [place] [address] Social History Tobacco Use Types Packs/Day [...] - Brigida ProviderMD - 07/10/2019 9:24 AM GUARD DRIVER [address] [address] HUGO AGUILAR JR :1955 Visit Time:07/10/2019 What to do next Your Diagnosis Chondromalacia, right knee, Chondromalacia, right knee Instructions From Your Care Team Weight bearing as tolerated, use cane or crutches if needed. Keep dressing clean and dry for at least 2 days. Resume all home medications. Usual diet as tolerated. Philadelphia 10/325mg 1 tablet every 6 hours as needed for pain- next dose due @ 3:30pm today 07/10/19. Follow-Up Appointments Follow Up with SURY SHARMA MD-ORT When 07/21/2019 02:00 PM EST Where: [facility] 2ND FLOOR [place] [id number]- Medications What How Much When Instructions Next [...] activities are safe for you. ??? Take noak-itx-bunatis and prescription medicines only as told by [...] 12/28/2017 Document Revised: 03/07/2018 Document Reviewed: 12/28/2017 [employer] Interactive Patient Education ?? 2019 [employer] General Anesthesia, Adult, Care After This [...] activities are safe for you. ??? Take gdyd-ooh-trvecwl and prescription medicines only as told by [...] 10/15/2001 Document Revised: 02/22/2018 Document Reviewed: 02/22/2018 [employer] Interactive Patient Education ?? 2019 [employer] Knee Arthroscopy, Care After Refer to [...] activities are safe for you. ??? Perform krfmv-yu-usynwh exercises only as directed by your health [...] 01/26/2006 Document Revised: 12/08/2016 Document Reviewed: 07/05/2015 [employer] Interactive Patient Education ?? 2018 [employer]. acetaminophen and hydrocodone (a SEET a MIN oh fen and laurie droe KOE done) Hycet, Lorcet, [place], Verdrocet, Vicodin, Xodol, Zamicet What is the [...] may report side effects to FDA at 8-504-LRZ-8231. What other drugs will affect acetaminophen and [...] affect acetaminophen and hydrocodone, including prescription and kkny-erp-cirggun medicines, vitamins, and herbal products. Not all [...] to ensure that the information provided by [employer]. ('[employer]') is accurate, up-to-date, and complete, but no guarantee is made to that effect. Drug information contained herein may be time sensitive. [employer] information has been compiled for use by healthcare practitioners and consumers in the [place] and therefore [employer] does not warrant that uses outside of the [place] are appropriate, unless specifically indicated otherwise. [employer] drug information does not endorse drugs, diagnose patients or recommend therapy. [employer] drug information is an informational resource designed [...] with your doctor, nurse or pharmacist. Copyright 9623-7001 [employer]. Version: 15.02. Revision Date: 05/27/2018. Emergency Awareness [...] Assistance with quitting is available by contacting 3-679-SFRS-NOW. This is a free resource providing counseling, [...] was given the opportunity to ask questions. Patient/Night Order Selector Name: Patient/Night Order Selector Signature: Relationship to Patient: Clinician/Hospital Night Order Selector Signature: Date: documented in this encounter Plan of Treatment Not on file documented as of this encounter Visit Diagnoses Not on filedocumented in this encounter
--- OUTSIDE RECORDS SUMMARY | 2025-01-09 08:19 | XMS_ITS | Encounter Summary ---
Author Organization [facility] Address [address] [place] [address] Care Team Providers Care Photoengraving Proofer Name Role Phone Zhao Harris MD Primary Care Provider + [phone] Reason for Visit * Reason Comments Med Refill Encounter Details Date Type Department Care Team (Late st Contact Info) Description 06/19/2023 Refill [facility] [address] 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, unspecified vessel or [...] Department Care Team (Late Contact Info) Description 01/13/2025 9:30 AM EDT Clinical Support [facility] Hematology/BMT and Cellular Therapy Program [address] [facility] [place] [place] [address] 01/13/2025 10:00 AM EDT Office Visit [facility] Hematology/BMT and Cellular Therapy Program [address] [facility] [place] [address] Isaura Wynn, HOME TEACHING GRADES 9 THRU 12 TEACHER [address] [facility] [address] [place] [phone] 01/13/2025 11:30 AM EDT Appointment [facility] [address] [place] [address] 01/14/2025 2:00 PM EDT Appointment [facility] [address] [place] [address] 01/15/2025 2:00 PM EDT Appointment [facility] [address] [place] [address] 01/16/2025 2:00 PM EDT Appointment [facility] [address] [place] [address] 01/17/2025 2:00 PM EDT Appointment [facility] [address] [place] [address] 01/18/2025 2:00 PM EDT Appointment [facility] [address] [place] [address] 01/19/2025 2:00 PM EDT Appointment [facility] [address] [place] [address] 03/10/2025 11:20 AM EDT Office Visit [facility] Head, Neck & Respiratory [address] [facility], 2nd [place] [address] Elsa Razo, HOME TEACHING GRADES 9 THRU 12 TEACHER [address] [place] [phone] documented as of this encounter Visit Diagnoses Diagnosis Hypertension, unspecified type 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
--- OUTSIDE RECORDS SUMMARY | 2025-01-09 08:19 | XMS_ITS | Encounter Summary ---
Author Organization [employer] Address [address] [place] [address] Care Team Providers Care Battery Tester And Repairer Name Role Phone Unavailable Primary Care Provider Unavailabl e Encounter Details Date Type Department Care Team (Late st Contact Info) Description 07/10/2019 Transcribed Document [facility] [place] [facility] [place] [address] ProviderBrigida MD [address] [place] [phone] Social History Tobacco Use Types Packs/Day Years [...] - Historical ProviderMD - 07/10/2019 8:16 AM CARRIER DRIVER Patient: HUGO AGUILAR JR Age: 63 years [...] Room in stable condition. Dwayne Burris???Yanet Mendez Electronically signed by Katlin Maldonado Conversion Chucking Machine Set Up Operator Cerner at 11/06/2022 6:06 PM CDT documented in this encounter Plan of Treatment Not on file documented as of this encounter Visit Diagnoses Not on filedocumented in this encounter
--- OUTSIDE RECORDS SUMMARY | 2025-01-09 08:19 | XMS_ITS | Encounter Summary ---
Author Organization [employer] Address [address] [place] [address] Care Team Providers Care Industrial Technology Education Teacher Name Role Phone Unavailable Primary Care Provider Unavailabl e Encounter Details Date Type Department Care Team (Late st Contact Info) Description 07/10/2019 Transcribed Document [facility] [place] [facility] [place] [address] ProviderBrigida MD [address] [place] [address] Social History Tobacco Use Types Packs/Day [...] - Brigida ProviderMD - 07/10/2019 9:20 AM VIDEO PRODUCTION COORDINATOR [address] [address] HUGO AGUILAR JR :1955 Visit Time:07/10/2019 What to do next Your Diagnosis Chondromalacia, right knee, Chondromalacia, right knee Instructions From Your Care Team Weight bearing as tolerated, use cane or crutches if needed. Keep dressing clean and dry for at least 2 days. Resume all home medications. Usual diet as tolerated. Coffeen 10/325mg 1 tablet every 6 hours as needed for pain- next dose due @ 3:30pm today 07/10/19. Follow-Up Appointments Follow Up with SURY SHARMA MD-ORT When 07/21/2019 02:00 PM EST Where: [facility] 2ND FLOOR [place] [id number]- Medications What How Much When Instructions Next [...] activities are safe for you. ??? Take mwpg-fmb-pnmcult and prescription medicines only as told by [...] 12/28/2017 Document Revised: 03/07/2018 Document Reviewed: 12/28/2017 ElseExaptive Interactive Patient Education ?? 2019 [employer] Inc. General Anesthesia, Adult, Care After This [...] activities are safe for you. ??? Take hmzh-wxq-bvsvmbk and prescription medicines only as told by [...] 10/15/2001 Document Revised: 02/22/2018 Document Reviewed: 02/22/2018 [employer]oc Interactive Patient Education ?? 2019 [employer] Inc. Knee Arthroscopy, Care After Refer to [...] activities are safe for you. ??? Perform ujmuu-kd-pbiqer exercises only as directed by your health [...] 01/26/2006 Document Revised: 12/08/2016 Document Reviewed: 07/05/2015 Docstoc Interactive Patient Education ?? 2018 [employer]jit. acetaminophen and hydrocodone (a SEET a MIN oh fen and laurie droe KOE done) Hycet, Lorcet, Coffeen, Verdrocet, Vicodin, Xodol, Zamicet What is the [...] may report side effects to FDA at 9-222-JGC-2300. What other drugs will affect acetaminophen and [...] affect acetaminophen and hydrocodone, including prescription and xacx-daq-fcyobvc medicines, vitamins, and herbal products. Not all [...] to ensure that the information provided by [employer]. ('Alianzatum') is accurate, up-to-date, and complete, but no guarantee is made to that effect. Drug information contained herein may be time sensitive. [employer] information has been compiled for use by healthcare practitioners and consumers in the [place] and therefore [employer] does not warrant that uses outside of the [place] are appropriate, unless specifically indicated otherwise. [employer] drug information does not endorse drugs, diagnose patients or recommend therapy. [employer] drug information is an informational resource designed [...] with your doctor, nurse or pharmacist. Copyright 5598-0816 [employer]. Version: 15.02. Revision Date: 05/27/2018. Emergency Awareness [...] Assistance with quitting is available by contacting 2-417-OUPE-NOW. This is a free resource providing counseling, [...] was given the opportunity to ask questions. Patient/Cartoon Designer Name: Patient/Cartoon Designer Signature: Relationship to Patient: Clinician/Hospital Cartoon Designer Signature: Date: Electronically signed by Katlin Maldonado Conversion Orthopedic Nurse Practitioner Tonioner at 11/06/2022 5:53 PM CDT documented in this encounter Plan of Treatment Not on file documented as of this encounter Visit Diagnoses Not on filedocumented in this encounter
--- OUTSIDE RECORDS SUMMARY | 2025-01-09 08:19 | XMS_ITS | Encounter Summary ---
Author Organization [email or web address] Address [address] [place] [address] Care Team Providers Care Shredded Filler Hopper Feeder Name Role Phone Unavailable Primary Care Provider Unavailabl e Encounter Details Date Type Department Care Team (Late st Contact Info) Description 07/10/2019 Transcribed Document [facility] [place] Family Medicine [facility] [place] [address] ProviderBrigida MD [address] [place] [address] Social History Tobacco Use Types Packs/Day [...] - Historical ProviderMD - 07/10/2019 7:17 AM RESEARCH GROUP DIRECTOR Pre Procedure Adult Entered On: 07/10/2019 7:21 EST Performed On: 07/10/2019 7:17 EST by RONNY BLISS RN Height and Weight, Clinical Dosing Height Source : Stated Height Entry Format : [place] Height, Feet : 5 ft(Converted to: 152 cm, 60 Inch) Height, Inches : 7 Inch(Converted to: 0 ft 7 Inch, 17.78 cm) Clinical Height : 170.18 cm Weight Source : Standing scale Weight Entry Format : [place] Clinical Dosing Weight : 86.36 kg Weight, Pounds : 190 lb Body Surface Area (BSA) : 1.98 m2 Body Mass Index : 29.8 kg/m2 (HI) [place] Body Weight : 65 kg RONNY BLISS [...] RONNY BLISS RN - 07/10/2019 7:17 EST [place] Suicide Severity Rating Scale (C-SSRS) CSSRS Past [...] Arrival on Unit : Ambulatory Support Person/Patient Knee Bolter : Yes Support Person/Pt Rep Name : Faviola Support Person/Pt Rep Contact Information : [phone] Want Family/Rep/Phys Notified of Admit : No Emergency Contact #1 : Faviola Brown Emergency Contact #1 Emergency Contact #1 Relationship : Emergency Contact #2 : . Emergency Contact #2 Phone Number : . Emergency Contact #2 Relationship : . Information Obtained From : Patient Primary Language : Cook Islander Preferred Communication Mode : Verbal Communication [...] Scale Risk Level : 25-45 Medium Risk [place] Fall Interventions : Adequate lighting, Bed in [...]
--- OUTSIDE RECORDS SUMMARY | 2025-01-09 08:19 | XMS_ITS | Encounter Summary ---
Author Organization Healthcare Address [address] [place] [address] Care Team Providers Care Housing Inspectors Name Role Phone Zhao Harris MD Primary Care Provider [phone] Encounter Details Date Type Department Care Team [...] drink first t manav in the morning (EYE-PATTERNMAKER APPRENTICE METAL) to steady your nerves or to get [...] Hematology/BMT and Cellular Therapy Program [address] [address] 01/13/2025 10:00 AM EDT Office Visit [facility] Hematology/BMT and Cellular Therapy Program [address] [address] Isaura Wynn, POKER PROP PLAYER 800 [facility] [address] [place] [phone] 01/13/2025 11:30 AM EDT Appointment [facility] Infusion 800 [place] [address] 01/14/2025 2:00 PM EDT Appointment [facility] 800 [place] [address] 01/15/2025 2:00 PM EDT Appointment [facility] [address] [place] [address] 01/16/2025 2:00 PM EDT Appointment [facility] [address] [place] [address] 01/17/2025 2:00 PM EDT Appointment [facility] 800 [place] [address] 01/18/2025 2:00 PM EDT Appointment [facility] 800 [place] [address] 01/19/2025 2:00 PM EDT Appointment [facility] 800 [place] [address] 03/10/2025 11:20 AM EDT Office Visit Pav CC Head, Neck & Respiratory 800 [facility], 2nd [place] [address] Elsa Razo, POKER PROP PLAYER 800 [place] [address] documented as of this encounter Visit Diagnoses [...] documented as of this encounter Care Teams Housing Inspectors Relationship Specialty Start Date End Date Zhao Harris MD [address] [facility] [address] [place] [phone] PCP - General 12/03/20 documented as of this encounter
--- OUTSIDE RECORDS SUMMARY | 2025-01-09 08:19 | XMS_ITS | Encounter Summary ---
Author Organization [facility] Address [address] [place] [address] Care Team Providers Care Lamination Technician Name Role Phone Zhao Harris MD Primary Care Provider [phone] Encounter Details Date Type Department Care Team [...] drink first t manav in the morning (EYE-PHARMACOVIGILANCE SCIENTIST) to steady your nerves or to get [...] Hematology/BMT and Cellular Therapy Program [address] [address] 01/13/2025 10:00 AM EDT Office Visit P[facility] CC Hematology/BMT and Cellular Therapy Program [address] [address] Isarua Wynn, DOT COMPLIANCE SPECIALIST 800 [facility] [address] [place] [phone] 01/13/2025 11:30 AM EDT Appointment [facility] Infusion 800 [place] [address] 01/14/2025 2:00 PM EDT Appointment [facility] [address] [place] [address] 01/15/2025 2:00 PM EDT Appointment [facility] [address] [place] [address] 01/16/2025 2:00 PM EDT Appointment [facility]fusion [address] [place] [address] 01/17/2025 2:00 PM EDT Appointment [facility]fusion 800 [place] [address] 01/18/2025 2:00 PM EDT Appointment [facility] [address] [place] [address] 01/19/2025 2:00 PM EDT Appointment [facility] Infusion 800 [place] [address] 03/10/2025 11:20 AM EDT Office Visit Pav CC Head, Neck & Respiratory 800 [facility], 2nd [place] [address] Elsa Razo, DOT COMPLIANCE SPECIALIST 800 [place] [address] documented as of this encounter Visit Diagnoses [...] documented as of this encounter Care Teams Lamination Technician Relationship Specialty Start Date End Date Zhao Harris MD [address] [facility] [address] [place] [phone] PCP - General 12/03/20 documented as of this encounter
--- OUTSIDE RECORDS SUMMARY | 2025-01-09 08:19 | XMS_ITS | Encounter Summary ---
Author Organization [employer] Address [address] [place] [address] Care Team Providers Care Cookie Padder Name Role Phone Unavailable Primary Care Provider Unavailabl e Encounter Details Date Type Department Care Team (Late st Contact Info) Description 07/10/2019 Transcribed Document [facility] [place] Family Medicine [facility] [place] [address] ProviderBrigida MD [address] [place] [address] Social History Tobacco Use Types Packs/Day [...] - Historical ProviderMD - 07/10/2019 7:57 AM MORTAR MAN Diane [facility] OR PACU Summary Primary Physician: SURY SHARMA MD-ORGenia Finalized Date/Time: 07/10/19 09:18:01 Pt. Name: HUGO AGUILAR JR, D.O.B./Sex: 1955 Male Med Rec #: [id number] Physician: SURY SHARMA MD-ORT Financial #: [id number] Pt. Type: O Room/Bed: Admit/Disch: 07/10/19 05:55:00 - Institution: [facility] OR PACU Case Times Entry 1 In PACU I 07/10/19 08:26:00 Ready for PACU 07/10/19 09:00:00 Discharge Discharge from PACU 07/10/19 09:00:00 I Last Modified By: Mariah Guerra, RN 07/10/19 09:17:59 S[facility] OR PACU Case Times Audit 07/10/19 09:17:59 Vegetable Specker: CARRIEC Modifier: CARRIEC 1 <*> Ready for PACU Discharge 07/10/19 08:56:00 1 <*> Discharge from PACU I 07/10/19 08:56:00 07/10/19 08:49:40 Vegetable Specker: CARRIEC Modifier: CARRIEC <+> 1 Discharge from PACU I Finalized By: Mariah Guerra RN Document Signatures Signed By: Mariah Guerra RN 07/10/19 09:18 documented in this encounter Plan of Treatment Not on file documented as of this encounter Visit Diagnoses Not on filedocumented in this encounter
--- OUTSIDE RECORDS SUMMARY | 2025-01-09 08:20 | XMS_ITS | Encounter Summary ---
Author Organization [employer] Address [address] [place] [address] Care Team Providers Care Applied Biology Professor Name Role Phone Unavailable Primary Care Provider Unavailabl e Encounter Details Date Type Department Care Team (Late st Contact Info) Description 07/10/2019 Transcribed Document [facility] [place] [facility] [place] [address] ProviderBrigida MD [address] [place] [phone] Social History Tobacco Use Types Packs/Day Years [...] - Brigida ProviderMD - 07/10/2019 7:04 AM ASSISTANT PROFESSOR OF HISTORY Patient: HUGO AGUILAR JR Age: 63 years Sex: Male : 1955 Associated Diagnoses: None Author: DWAYNE SHARMA MD-ORT HISTORY AND PHYSICAL DATE: Patient: Hugo Aguilar Date of : 1955 Patient Number: [id number] History of Present Illness Hugo is here [...]
--- OUTSIDE RECORDS SUMMARY | 2025-01-09 08:20 | XMS_ITS | Encounter Summary ---
Author Organization [employer] Address [address] [place] [address] Care Team Providers Care Device Test Engineer Name Role Phone Unavailable Primary Care Provider Unavailabl e Encounter Details Date Type Department Care Team (Late st Contact Info) Description 07/10/2019 Transcribed Document [facility] [place] [address] [place] [address] ProviderBrigida MD [facility] [place], [place] [address] Social History Tobacco Use Types Packs/Day Years [...] - Historical ProviderMD - 07/10/2019 9:45 AM RIGGER APPRENTICE Event Note Entered On: 07/10/2019 11:04 EST Performed On: 07/10/2019 9:45 EST by Laquita Romero RN Event Note Event Date/Time : 07/10/2019 9:45 EST Event Location : Other: post-op Description of Event : Pt informed that next dose of Kirklin pain medication due @ 3:45pm today instead of 3:30pm. Laquita Romero RN - 07/10/2019 11:02 EST Electronically signed by Katlin Maldonado Conversion Nurse Informatics Educator Cerner at 11/06/2022 6:14 PM CDT documented in this encounter Plan of Treatment Not on file documented as of this encounter Visit Diagnoses Not on filedocumented in this encounter
--- OUTSIDE RECORDS SUMMARY | 2025-01-09 08:20 | XMS_ITS | Encounter Summary ---
Author Organization [employer] Address [address] [place] [address] Care Team Providers Care Crusher Feeder Name Role Phone Unavailable Primary Care Provider Unavailabl e Encounter Details Date Type Department Care Team (Late st Contact Info) Description 07/10/2019 Transcribed Document [facility] [place] Family Medicine [facility] [place] [address] ProviderBrigida MD [address] [place] [address] Social History Tobacco Use Types Packs/Day [...] - Historical ProviderMD - 07/10/2019 7:57 AM HEALTHCARE MANAGEMENT CONSULTANT Diane Main OR PreOp Summary Primary Physician: SURY SHARMA MD-ORGenia Finalized Date/Time: 07/21/19 08:13:07 Pt. Name: HUGO AGUILAR JR, D.O.B./Sex: 1955 Male Med Rec #: [id number] Physician: SURY SHARMA MD-ORT Financial #: [id number] Pt. Type: O Room/Bed: Admit/Disch: 07/10/19 05:55:00 - 07/10/19 10:00:00 Institution: [facility] PreOp Case Times Entry 1 In Preop 07/10/19 06:10:00 Ready for Holding n/a Room Patient Ready for 07/10/19 07:19:00 Surgery Patient Out of Preop 07/10/19 07:35:00 Patient Out of n/a Holding Room Last Modified By: REAL SEVILLA 07/21/19 08:13:06 SJE PreOp Case Times Audit 07/21/19 08:13:06 Sample Color Maker: FAY Modifier: CATLETDD <+> 1 Patient Out of Preop Finalized By: REAL SEVILLA Document Signatures Signed By: REAL SEVILLA 07/21/19 08:13 documented in this encounter Plan of Treatment Not on file documented as of this encounter Visit Diagnoses Not on filedocumented in this encounter
--- OUTSIDE RECORDS SUMMARY | 2025-01-09 08:20 | XMS_ITS | Encounter Summary ---
Author Organization [facility] Address [address] [place] [address] Care Team Providers Care Installation Drafter Name Role Phone Zhao Harris MD Primary Care Provider [phone] Encounter Details Date Type Department Care Team [...] drink first t manav in the morning (EYE-NAIL TECHNICIAN TEACHER) to steady your nerves or to [...] Hematology/BMT and Cellular Therapy Program [address] [address] 01/13/2025 10:00 AM EDT Office Visit P[facility] CC Hematology/BMT and Cellular Therapy Program [address] [address] Isaura Wynn, DIRECTOR SUPPLIER QUALITY 800 [facility] [address] [place] [phone] 01/13/2025 11:30 AM EDT Appointment [facility] H Infusion 800 [place] [address] 01/14/2025 2:00 PM EDT Appointment [facility] Infusion [address] [place] [address] 01/15/2025 2:00 PM EDT Appointment [facility] Infusion [address] [place] [address] 01/16/2025 2:00 PM EDT Appointment [facility] Infusion [address] [place] [address] 01/17/2025 2:00 PM EDT Appointment [facility] Infusion [address] [place] [address] 01/18/2025 2:00 PM EDT Appointment [facility] Infusion [address] [place] [address] 01/19/2025 2:00 PM EDT Appointment [facility] Infusion [address] [place] [address] 03/10/2025 11:20 AM EDT Office Visit Pav CC Head, Neck & Respiratory 800 [facility], 2nd [place] [address] Elsa Razo, DIRECTOR SUPPLIER QUALITY 800 [place] [address] documented as of this encounter Visit Diagnoses [...] documented as of this encounter Care Teams Installation Drafter Relationship Specialty Start Date End Date Zhao Harris MD [address] [facility] [address] [place] [phone] PCP - General 12/03/20 documented as of this encounter
--- OUTSIDE RECORDS SUMMARY | 2025-01-09 08:20 | XMS_ITS | Clinical Summary ---
Author Organization [employer] Address [address] [place] [address] Care Team Providers Care Crm Technical Lead Name Role Phone Unavailable Primary Care Provider [...]
--- OUTSIDE RECORDS SUMMARY | 2025-01-09 08:20 | XMS_ITS | Referral Summary ---
Author Organization [employer] Address [address] [place] [address] Care Team Providers Care Heliotherapist Name Role Phone Unavailable Primary Care Provider [...]
--- OUTSIDE RECORDS SUMMARY | 2025-01-09 08:20 | XMS_ITS | Encounter Summary ---
Author Organization [facility] Address [address] [place] [address] Care Team Providers Care Hot Car Charger Name Role Phone Zhao Harris MD Primary Care Provider [phone] Encounter Details Date Type Department Care Team ([facility] st Contact Info) Description 11/05/2024 Results Follow-Up Pav CC Head, Neck & Respiratory 800 [facility], 2nd [place] [address] Elsa Razo, ASSEMBLY WORKER 800 [place] [address] Social History Tobacco Use Types Packs/Day Years [...] drink first t manav in the morning (EYE-MANPOWER DEVELOPMENT MANAGER) to steady your nerves or to [...] PAV Hematology/BMT and Cellular Therapy Program [address] [place] [phone] 01/13/2025 10:00 AM EDT Office Visit PAV Hematology/BMT and Cellular Therapy Program [address] [address] Isaura Wynn, ASSEMBLY WORKER 800 [facility] [address] [place] [address] 01/13/2025 11:30 AM EDT Appointment [facility] H Infusion 800 [place] [address] 01/14/2025 2:00 PM EDT Appointment [facility] H Infusion [address] [place] [address] 01/15/2025 2:00 PM EDT Appointment [facility] H Infusion [address] [place] [address] 01/16/2025 2:00 PM EDT Appointment [facility] Infusion [address] [place] [address] 01/17/2025 2:00 PM EDT Appointment [facility] Infusion [address] [place] [address] 01/18/2025 2:00 PM EDT Appointment [facility] Infusion [address] [place] [address] 01/19/2025 2:00 PM EDT Appointment [facility] H Infusion [address] [place] [address] 03/10/2025 11:20 AM EDT Office Visit Pav CC Head, Neck & Respiratory 800 [facility], 2nd [place] [address] Elsa Razo, ASSEMBLY WORKER 800 [place] [address] documented as of this encounter Visit Diagnoses [...] as of this encounter Care Teams Hot Car Charger Relationship Specialty Start Date End Date Zhao Harris MD [address] [address] PCP - General 12/03/20 documented as of this encounter
--- OUTSIDE RECORDS SUMMARY | 2025-01-09 08:20 | XMS_ITS | Encounter Summary ---
Author Organization Healthcare Address [address] [place] [address] Care Team Providers Care Insulator Tester Name Role Phone Zhao Harris MD Primary Care Provider [phone] Encounter Details Date Type Department Care Team [...] drink first t manav in the morning (EYE-SURGICAL SUPPLY ASSISTANT) to steady your nerves or to [...] Team ([facility] st Contact Info) Description 01/13/2025 9:30 AM EDT Clinical Support P[facility] CC Hematology/BMT and Cellular Therapy Program [address] [address] 01/13/2025 10:00 AM EDT Office Visit P[facility] CC Hematology/BMT and Cellular Therapy Program [address] [address] Isaura Wynn, LEASE OPERATOR 800 [facility] [address] [place] [phone] 01/13/2025 11:30 AM EDT Appointment [facility] H Infusion 800 [place] [address] 01/14/2025 2:00 PM EDT Appointment [facility] H Infusion [address] [place] [address] 01/15/2025 2:00 PM EDT Appointment [facility] H Infusion [address] [place] [address] 01/16/2025 2:00 PM EDT Appointment [facility] H Infusion [address] [place] [address] 01/17/2025 2:00 PM EDT Appointment [facility] H Infusion [address] [place] [address] 01/18/2025 2:00 PM EDT Appointment [facility] Infusion [address] [place] [address] 01/19/2025 2:00 PM EDT Appointment [facility] H Infusion [address] [place] [address] 03/10/2025 11:20 AM EDT Office Visit Pav CC Head, Neck & Respiratory 800 [facility], 2nd [place] [address] Elsa Razo, LEASE OPERATOR 800 [place] [address] documented as of this encounter Visit Diagnoses [...] as of this encounter Care Teams Insulator Tester Relationship Specialty Start Date End Date Zhao Harris MD [address] [facility] [address] [place] [phone] PCP - General 12/03/20 documented as of this encounter
--- OUTSIDE RECORDS SUMMARY | 2025-01-09 08:20 | XMS_ITS | Encounter Summary ---
Author Organization [facility] Address [address] [place] [address] Care Team Providers Care Watcher Automat Long Goods Name Role Phone Zhao Harris MD Primary Care Provider [phone] Encounter Details Date Type Department Care Team [...] drink first t manav in the morning (EYE-BUCK PRESSER) to steady your nerves or to get [...] Upcoming Encounters Date Type Department Care Team ([facility] st Contact Info) Description 01/13/2025 9:30 AM EDT Clinical Support PAV CC Hematology/BMT and Cellular Therapy Program [address] [address] 01/13/2025 10:00 AM EDT Office Visit PAV CC Hematology/BMT and Cellular Therapy Program 750 [facility], [address] [place] [phone] Isaura Wynn, ASSISTANT COUNSEL 800 [facility] [address] [place] [phone] 01/13/2025 11:30 AM EDT Appointment [facility] H Infusion 800 [place] [address] 01/14/2025 2:00 PM EDT Appointment [facility] H Infusion [address] [place] [address] 01/15/2025 2:00 PM EDT Appointment [facility] Infusion 800 [place] [address] 01/16/2025 2:00 PM EDT Appointment [facility] Infusion [address] [place] [address] 01/17/2025 2:00 PM EDT Appointment [facility] Infusion [address] [place] [address] 01/18/2025 2:00 PM EDT Appointment [facility] Infusion [address] [place] [address] 01/19/2025 2:00 PM EDT Appointment [facility] H Infusion [address] [place] [address] 03/10/2025 11:20 AM EDT Office Visit Pav CC Head, Neck & Respiratory 800 [facility], 2nd [place] [address] Elsa Razo, ASSISTANT COUNSEL 800 [place] [address] documented as of this encounter Visit Diagnoses [...] documented as of this encounter Care Teams Watcher Automat Long Goods Relationship Specialty Start Date End Date Zhao Harris MD [address] [facility] [address] [place] [address] PCP - General 12/03/20 documented as of this encounter
--- OUTSIDE RECORDS SUMMARY | 2025-01-09 08:20 | XMS_ITS | Encounter Summary ---
Author Organization [facility] Address [address] [place] [address] Care Team Providers Care Base Cloth Inspector Name Role Phone Zhao Harris MD Primary Care Provider [phone] Encounter Details Date Type Department Care Team (Latest Contact Info) Description 01/06/2025 Travel Social History Tobacco Use Types Packs/Day [...] drink first t manav in the morning (EYE-MUCK OPERATOR) to steady your nerves or to [...] Hematology/BMT and Cellular Therapy Program [address] [phone] 01/13/2025 10:00 AM EDT Office Visit [facility] Hematology/BMT and Cellular Therapy Program [address] [phone] Isaura Wynn, SEAT MAKER [address] [facility] [address] [place] [phone] 01/13/2025 11:30 AM EDT Appointment [facility] In[facility] [address] [place] [address] 01/14/2025 2:00 PM EDT Appointment [facility] [address] [place] [address] 01/15/2025 2:00 PM EDT Appointment [facility] [address] [place] [address] 01/16/2025 2:00 PM EDT Appointment [facility] [address] [place] [address] 01/17/2025 2:00 PM EDT Appointment [facility] [address] [place] [address] 01/18/2025 2:00 PM EDT Appointment [facility] [address] [place] [address] 01/19/2025 2:00 PM EDT Appointment [facility] [address] [place] [address] 03/10/2025 11:20 AM EDT Office Visit [facility] Head, Neck & Respiratory 800 [facility], [address] [place] [address] Elsa Razo, SEAT MAKER [address] [place] [address] documented as of this encounter Visit Diagnoses [...] documented as of this encounter Care Teams Base Cloth Inspector Relationship Specialty Start Date End Date Zhao Harris MD [address] [facility] [address] [place] [id number] PCP - General 12/03/20 documented as of this encounter
--- OUTSIDE RECORDS SUMMARY | 2025-01-09 08:20 | XMS_ITS | Encounter Summary ---
Author Organization [employer] Address [address] [place] [id number] Care Team Providers Care Production Machine Shop Supervisor Name Role Phone Unavailable Primary Care Provider Unavailabl e Encounter Details Date Type Department Care Team (Late st Contact Info) Description 07/10/2019 Transcribed Document [facility] Family Medicine [facility] [place] [address] ProviderBrigida MD [address] [place] [phone] Social History Tobacco Use Types Packs/Day [...] - Historical ProviderMD - 07/10/2019 7:57 AM PLATE SETTER RYLAN Main OR IntraOp Summary Primary Physician: SURY SHARMA MD-ORT Finalized Date/Time: 07/10/19 08:31:14 Pt. Name: HUGO AGUILAR JR, D.O.B./Sex: 1955 Male Med Rec #: [id number] Physician: SURY SHARMA MD-ORT Financial #: [id number] Pt. Type: O Room/Bed: Admit/Disch: 07/10/19 05:55:00 - Institution: [facility] IntraOp Case Attendance Entry 1 Entry 2 Entry 3 Case Attendee SURY SHARMA, TRAVIS PUTNAM, ESTRELLA, Kenrick Guadalupe, PLATE SETTER/ACCOUNT INFORMATION CLERK -ORT RUG FRAME MOUNTER-ANS Role Performed Surgeon/Proceduralist, RUG FRAME MOUNTER/Nurse Wire Bound Box Machine Operator Vendor Management Associate, First First Time In 07/10/19 07:38:00 07/10/19 07:38:00 07/10/19 07:38:00 Time Out 07/10/19 08:26:00 07/10/19 08:26:00 07/10/19 08:26:00 Procedure Knee Arthroscopy Knee Arthroscopy Knee Arthroscopy Other Attendee Superficial Wound Closed By: Last Modified By: Martha Goldberg RN Dobson, Melissa, RN Dobson, Melissa, RN 07/10/19 08:31:02 07/10/19 08:31:02 07/10/19 08:31:02 Entry 4 Entry 5 Case Attendee WILMER HECTOR Melissa, RN Role Performed Scrub, First Rig Site Engineer, First Time In 07/10/19 07:38:00 07/10/19 07:38:00 Time Out 07/10/19 08:26:00 07/10/19 08:26:00 Procedure Knee Arthroscopy Knee Arthroscopy Other Attendee Superficial Wound Closed By: Last Modified By: Martha Goldberg RN Dobson, Melissa, RN 07/10/19 08:31:02 07/10/19 08:31:02 [facility] IntraOp Case Attendance Audit 07/10/19 08:31:02 Rn Access: [id number] Modifier: [id number] <+> Time Out 1 <*> Procedure Knee Arthroscopy 2 <+> Time Out 2 <*> Procedure Knee Arthroscopy 3 <+> Time Out 3 <*> Procedure Knee Arthroscopy 4 <+> Time Out 4 <*> Procedure Knee Arthroscopy 5 <+> Time Out 5 <*> Procedure Knee Arthroscopy 07/10/19 08:12:16 Rn Access: [id number] Modifier: [id number] <+> 1 Time In <+> 1 Procedure [...] [facility] IntraOp Case Times Audit 07/10/19 08:30:17 Rn Access: [id number] Modifier: [id number] <+> 1 Out Room Time <+> 1 [...] [facility] IntraOp Counts Final Audit 07/10/19 08:29:56 Rn Access: [id number] Modifier: [id number] <*> Procedure Knee Arthroscopy [facility] IntraOp Delays Entry 1 Delay Reason Other Duration 8 Minute(s) Last Modified By: Martha Goldberg RN 07/10/19 08:06:57 [facility] IntraOp Departure from OR Entry 1 Integumentary Assessment Integumentary WDL Assessment WDL Transfer/Handoff Transfer to PACU Phase I Handoff Method Bedside/Face to face Post-op Transport Stretcher/Gurney Via Patient Transport Martha Goldberg RN, Accompanied by TRAVIS PUTNAM, TANKER SERVICEMAN, RUG FRAME MOUNTER-ANS Last Modified By: Martha Goldberg RN 07/10/19 08:06:58 [facility] IntraOp Dressing and Packing Entry 1 Type Dressing Location RIGHT KNEE Wound Dressing Item 4x4's, Joseph, Kerlix/Maninder Applied By Kenrick Guadalupe, PLATE SETTER/ACCOUNT INFORMATION CLERK Last Modified By: Martha Goldberg RN 07/10/19 [...] RN 07/10/19 08:07:26 [facility] IntraOp General Case Backbreaker 1 Case Information OR OR 05 [facility] Case Level 1 Room Verified Yes Wound Class I - Clean Specialty SN Orthopedic Anesthesia Type General ASA Class 3 Diagnosis Preop Diagnosis RIGHT KNEE PAIN Postop Same As Preop Yes Postop Diagnosis RIGHT KNEE PAIN Last Modified By: Martha Goldberg RN 07/10/19 08:16:03 [facility] IntraOp General Case Data Audit 07/10/19 08:16:03 Rn Access: [id number] Modifier: [id number] <+> 1 ASA Class <+> 1 Anesthesia [...] [facility] IntraOp Intraoperative Equipment Audit 07/10/19 08:15:09 Rn Access: [id number] Modifier: [id number] 1 <*> Photo Yes 1 <*> Video [...] 20ml vial Marcaine 0.5% 30ml vial - [id number] - [id number] Combo Med List Time Administered 07/10/19 07:57:00 07/10/19 07:57:00 Route of LOCAL LOCAL Administration Dose Dose 25 20 Unit of Measure ml ml Volume Administered By Kenrick Guadalupe, PLATE SETTER/ACCOUNT INFORMATION CLERK Kenrick Guadalupe CST/FREDY Procedure Irrigation Irrigant Volume [...] Positioned By Martha Goldberg RN, TRAVIS PUTNAM, TANKER SERVICEMAN, RUG FRAME MOUNTER-ANS Position Verified Positioning Yes Verified by Anesthesia [...] Intra Op Sign Out Audit 07/10/19 08:30:31 Rn Access: [id number] Modifier: [id number] <+> 1 RN Sign Out Signature Date/Time [...] [facility] IntraOp Surgical Procedures Audit 07/10/19 08:30:36 Rn Access: [id number] Modifier: [id number] <+> 1 Stop 07/10/19 08:16:57 Rn Access: [id number] Modifier: [id number] <*> Procedure Knee Arthroscopy [facility] IntraOp Temp Regulation Devices Entry 1 Temp Regulation Temperature Warm blankets Regulation Device Temperature Upper body Regulation Site Temperature TRAVIS PUTNAM APRN, Regulation Device RUG FRAME MOUNTER-ANS Applied by Last Modified By: Martha Goldberg [...] [facility] IntraOp Time Out Audit 07/10/19 08:31:00 Rn Access: [id number] Modifier: [id number] <*> Beta Jaime Administered N/A 1 <*> Procedure to be Performed Knee Arthroscopy Case Comments <None> Finalized By: Martha Goldberg RN Document Signatures Signed By: Martha Goldberg RN 07/10/19 08:31 Electronically signed by [facility] Conversion Hardware Technician Cerner at 11/06/2022 5:47 PM CDT documented in this encounter Plan of Treatment Not on file documented as of this encounter Visit Diagnoses Not on filedocumented in this encounter
--- OUTSIDE RECORDS SUMMARY | 2025-01-09 08:21 | XMS_ITS | Clinical Summary ---
Author Organization [facility] Address [address] [place] [address] Care Team Providers Care Health Services Coordinator Name Role Phone Zhao Harris MD Primary Care Provider + [phone] Allergies No known active allergies Medications nitroglycerin (Nitrostat) 0.4 MG SL tabletIndicatio ns:Coronary artery disease involving [place] heart with angina pectoris, unspecified vessel or lesion type (CMS/HCC) Place 1 tablet (0.4 mg) under the tongue every 5 (five) minutes as needed for chest pain. 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 90 tablet 09/11/19 25 Active rosuvastatin (Crestor) 40 MG tablet Take 1 tablet (40 mg) by mouth daily. 30 tablet 11 10/14/19 25 Active levoFLOXacin (Levaquin) 500 MG tabletIndicatio ns:Myelodysplas ia (myelodysplasti c syndrome) (CMS/HCC) Take 1 tablet (500 mg) by mouth daily. 30 tablet 10/15/19 25 Active acyclovir (Zovirax) 800 MG tabletIndicatio ns:Myelodysplas ia (myelodysplasti c syndrome) (CMS/HCC) Take 1 tablet (800 mg) by mouth in the morning and 1 tablet (800 mg) before bedtime. 60 tablet 3 10/15/19 25 Active posaconazole (Noxafil) [address] tabletIndicatio ns:Myelodysplas ia (myelodysplasti c syndrome) (CMS/HCC) Take 3 tablets (300 mg) by mouth daily with breakfast. Starting Cycle 1 Day 3 of venetoclax, take 300mg twice daily for 2 doses, then 300mg daily every day from then on. Do not crush, chew, or split. 90 tablet 5 10/15/19 25 Active prochlorperazin e (Compazine) 10 MG tabletIndicatio ns:Myelodysplas ia (myelodysplasti c syndrome) (CMS/HCC) Take 1 tablet (10 mg) by mouth every 6 hours as needed for nausea or vomiting. 30 tablet 5 10/15/19 25 Active senna-docusate sodium (Senokot-S) 8.6-50 MG tablet Take 2 tablets by mouth at night as needed for constipation. 30 tablet 3 10/24/19 25 Active HYDROcodone-shalom taminophen (Brinklow) 5-325 MG tablet Take 1 tablet by mouth every 6 hours as needed. 11/08/19 25 Active hydrocortisone 2.5 % cream Apply 1 Application topically as needed for rash. 20 g 12/10/19 25 Active lidocaine-prilo jaleesa (Emla) 2.5-2.5 % cream Apply 1 inch cream to port site and cover with a dressing 60 minutes prior to being accessed. 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 30 tablet 11 10/04/19 025 Discontinued venetoclax (Venclexta) 50 MG tabletIndicatio ns:Myelodysplas ia (myelodysplasti c syndrome) (CMS/HCC) Take 1 tablet by mouth daily. Days 1-14 14 tablet 11/19/19 025 Discontinued venetoclax (Venclexta) 10 MG tabletIndicatio ns:Myelodysplas ia (myelodysplasti c syndrome) (CMS/HCC) Take 2 tablets by mouth daily. Days 1-14. Take with 50 mg tablets for a total of 70 mg daily 28 tablet 11/19/19 025 Discontinued venetoclax (Venclexta) 50 MG tabletIndicatio ns:Myelodysplas ia (myelodysplasti c syndrome) (CMS/HCC) Take 1 tablet by mouth daily for 14 days. 14 tablet 12/17/19 025 Additional Information Patient not taking.Reported on 01/06/2025 venetoclax (Venclexta) 10 MG tabletIndicatio ns:Myelodysplas ia (myelodysplasti c syndrome) (CMS/HCC) Take 2 tablets by mouth daily for 14 days. 28 tablet 12/17/19 025 Additional Information Patient not taking.Reported on 01/06/2025 Hospital, Clinic, or Other Facility Administered Medication [...] Encounters Date Type Department Care Team Description 01/06/2025 9:00 AM EDT Procedure Visit [facility] Hematology/BMT and Cellular Therapy Program [address] [facility], [address] [place] [phone] Kierra Novak APRN Myelodysplasia (myelodysplastic syndrome) ([facility]/HCC) 01/06/2025 8:30 AM EDT Clinical Support [facility]ematology/BMT and Cellular Therapy Program [address] [facility], [address] [place] [phone] Nate Ponce RN Arrived 01/06/2025 Travel 01/05/2025 Travel 01/01/2025 [facility] [place] [address] [facility] [place] [address] Ra Best MD 12/23/2024 Orders Only [facility] Hematology/BMT and Cellular Therapy Program [address] [phone] Adam Conway, RN Myelodysplasia (myelodysplastic syndrome) ([facility]/HCC) (Primary Dx) 12/22/2024 9:58 AM EDT - 12/22/2024 11:59 PM EDT Hospital Encounter [facility] [address] [place] [address] Myelodysplasia (myelodysplastic syndrome) (CMS/HCC) (Primary Dx) Discharge Disposition: Home or Self Care 12/22/2024 8:24 AM EDT - 12/22/2024 9:57 AM EDT Hospital Encounter [facility] [address] [place] [address] Myelodysplasia (myelodysplastic syndrome) (CMS/HCC) (Primary Dx); Thrombocytopenia (CMS/HCC) Discharge Disposition: Home or Self Care 12/22/2024 Travel 12/21/2024 8:30 AM EDT - 12/21/2024 11:59 PM EDT Hospital Encounter [facility] 1 [address] [place] [address] Myelodysplasia (myelodysplastic syndrome) (CMS/HCC) (Primary Dx) Discharge Disposition: Home or Self Care 12/21/2024 Travel 12/20/2024 8:08 AM EDT - 12/20/2024 11:59 PM EDT Hospital Encounter [facility] 1 [address] [place] [address] Myelodysplasia (myelodysplastic syndrome) (CMS/HCC) (Primary Dx); Thrombocytopenia (CMS/HCC); SOB (shortness of breath) Discharge Disposition: Home or Self Care 12/20/2024 Travel 12/19/2024 8:30 AM EDT - 12/19/2024 11:59 PM EDT Hospital Encounter [facility] 2 [address] [place] [address] Myelodysplasia (myelodysplastic syndrome) (CMS/HCC) (Primary Dx) Discharge Disposition: Home or Self Care 12/19/2024 Travel 12/18/2024 9:46 AM EDT - 12/18/2024 11:59 PM EDT Hospital Encounter [facility] [address] [place] [address] Myelodysplasia (myelodysplastic syndrome) (CMS/HCC) (Primary Dx) Discharge Disposition: Home or Self Care 12/18/2024 8:30 AM EDT - 12/18/2024 9:45 AM EDT Hospital Encounter [facility] [address] [place] [address] Myelodysplasia (myelodysplastic syndrome) (CMS/HCC) (Primary Dx); Thrombocytopenia (CMS/HCC) Discharge Disposition: Home or Self Care 12/18/2024 Travel 12/17/2024 8:23 AM EDT - 12/17/2024 11:59 PM EDT Hospital Encounter [facility] [address] [place] [address] Myelodysplasia (myelodysplastic syndrome) (CMS/HCC) (Primary Dx); Thrombocytopenia (CMS/HCC) Discharge Disposition: Home or Self Care 12/17/2024 Travel 12/16/2024 11:00 AM EDT - 12/16/2024 11:59 PM EDT Hospital Encounter [facility] [address] [place] [address] Myelodysplasia (myelodysplastic syndrome) (CMS/HCC) (Primary Dx) Discharge Disposition: Home or Self Care 12/16/2024 10:00 AM EDT - 12/16/2024 10:59 AM EDT Hospital Encounter [facility] [address] [place] [address] Myelodysplasia (myelodysplastic syndrome) (CMS/HCC) (Primary Dx); Thrombocytopenia (CMS/HCC) Discharge Disposition: Home or Self Care 12/16/2024 8:30 AM EDT Office Visit [facility]ematology/BMT [facility] Cellular Therapy Program [address] [phone] Isaura Wynn APRN Myelodysplasia (myelodysplastic syndrome) (CMS/HCC) (Primary Dx) 12/16/2024 8:00 AM EDT Clinical Support [facility]ology/BMT [facility] Cellular Therapy Program [address] [place] [address] 12/16/2024 Orders Only [facility] Hematology/BMT [facility] Cellular Therapy Program [address] [place] [address] Christina Ramos MD Myelodysplasia (myelodysplastic syndrome) (CMS/HCC) (Primary Dx) 12/16/2024 Travel 12/12/2024 Orders Only [facility]ematology/BMT and Cellular Therapy Program [address] [place] [address] Gricel Gonzalez RN 12/11/2024 2:30 PM EDT Office Visit [facility] Vascular Interventional Radiology [address] [place] [address] Judy Leung APRN, DNP Port-A-Cath in place (Primary Dx); Myelodysplasia (myelodysplastic syndrome) (CMS/HCC) 12/11/2024 1:00 PM EDT Clinical Support [facility] [address] [facility], 2nd [place] [address] Myelodysplasia (myelodysplastic syndrome) (CMS/HCC) (Primary Dx); Thrombocytopenia (CMS/HCC) 12/11/2024 9:00 AM EDT Office Visit [facility] Hematology/BMT and Cellular Therapy Program [address] [phone] Virgen Vargas MD Myelodysplasia (myelodysplastic syndrome) (CMS/HCC) (Primary Dx); Encounter for antineoplastic chemotherapy; 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); Pancytopenia due to chemotherapy (CMS/HCC); Immunosuppressed due to chemotherapy 12/11/2024 8:30 AM EDT Clinical Support [facility] Hematology/BMT and Cellular Therapy Program [address] [facility], [address] [place] [phone] Myelodysplasia (myelodysplastic syndrome) (CMS/HCC) 12/11/2024 Orders Only [facility] Hematology/BMT and Cellular Therapy Program [address] [facility], [address] [place] [phone] Shahla Mejia RN 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) (Primary Dx) 12/11/2024 Travel 12/09/2024 1:30 PM EDT Clinical Support [facility] [address] [facility], [address] [place] [address] Myelodysplasia (myelodysplastic syndrome) (CMS/HCC) (Primary Dx); Thrombocytopenia (CMS/HCC) 12/09/2024 9:00 AM EDT Procedure Visit [facility] Hematology/BMT and Cellular Therapy Program [address] [place] [phone] Kierra Novak APRN Myelodysplasia (myelodysplastic syndrome) (CMS/HCC) 12/09/2024 8:30 AM EDT Clinical Support [facility]ematology/BMT and Cellular Therapy Program [address] [place] [phone] 12/09/2024 Telephone [facility] Hematology/BMT and Cellular Therapy Program [address] [place] [phone] Essie Ricks RN 12/09/2024 Travel 12/08/2024 Travel 12/04/[address] [facility] Vascular Interventional Radiology [address] [facility] Room [address] [place] [phone] Martha William 12/01/2024 8:41 AM EDT - 12/01/2024 11:59 PM EDT Hospital Encounter [facility] Interventional Radiology [address] [place] [address] Gela Singer Thrombocytopenia (CMS/HCC) (Primary Dx); Myelodysplasia (myelodysplastic syndrome) (CMS/HCC) Discharge Disposition: Home or Self Care 12/01/2024 Travel 11/26/2024 10:00 AM EDT Office Visit [facility] Vascular Interventional Radiology [address] [facility] Room [address] [place] [phone] Latoya Nunez APRN Preop examination (Primary Dx) 11/26/2024 Travel 11/25/2024 Telephone [facility] Hematology/BMT and Cellular Therapy Program [address] [place] [phone] Michelle Mast Distress Screen Follow-up 11/24/2024 2:30 PM EDT - 11/24/2024 11:59 PM EDT Hospital Encounter [facility] 1 [address] [place] [address] Discharge Disposition: Home or Self Care 11/24/2024 1:59 PM EDT - 11/24/2024 2:29 PM EDT Hospital Encounter [facility] Infusion Clinic 1 [address] [place] [address] Myelodysplasia (myelodysplastic syndrome) (CMS/HCC) (Primary Dx); Thrombocytopenia (CMS/HCC) Discharge Disposition: Home or Self Care 11/24/2024 Travel 11/23/2024 1:43 PM EDT - 11/23/2024 11:59 PM EDT Hospital Encounter [facility] Infusion Clinic 1 [address] [place] [address] Myelodysplasia (myelodysplastic syndrome) (CMS/HCC) (Primary Dx) Discharge Disposition: Home or Self Care 11/23/2024 Travel 11/22/2024 1:59 PM EDT - 11/22/2024 11:59 PM EDT Hospital Encounter [facility] Infusion Clinic 1 [address] [place] [address] Myelodysplasia (myelodysplastic syndrome) (CMS/HCC) (Primary Dx); Thrombocytopenia (CMS/HCC) Discharge Disposition: Home or Self Care 11/22/2024 Travel 11/21/2024 1:30 PM EDT - 11/21/2024 11:59 PM EDT Hospital Encounter [facility] Infusion Clinic 1 [address] [place] [address] Myelodysplasia (myelodysplastic syndrome) (CMS/HCC) (Primary Dx) Discharge Disposition: Home or Self Care 11/21/2024 Travel 11/20/2024 2:06 PM EDT - 11/20/2024 11:59 PM EDT Hospital Encounter [facility] Infusion Clinic 1 [address] [place] [address] Myelodysplasia (myelodysplastic syndrome) (CMS/HCC) (Primary Dx) Discharge Disposition: Home or Self Care 11/20/2024 1:36 PM EDT - 11/20/2024 2:05 PM EDT Hospital Encounter [facility] Infusion Clinic 1 [address] [place] [phone] Myelodysplasia (myelodysplastic syndrome) (CMS/HCC) (Primary Dx); Thrombocytopenia (CMS/HCC) Discharge Disposition: Home or Self Care 11/20/2024 Travel 11/19/2024 2:00 PM EDT - 11/19/2024 11:59 PM EDT Hospital Encounter [facility] 1 [address] [place] [address] Myelodysplasia (myelodysplastic syndrome) (CMS/HCC) (Primary Dx) Discharge Disposition: Home or Self Care 11/19/2024 Travel 11/19/2024 Orders Only [facility] Hematology/BMT and Cellular Therapy Program [address] [phone] Adam Conway, RN Myelodysplasia (myelodysplastic syndrome) (CMS/HCC) (Primary Dx) 11/18/2024 12:25 PM EDT - 11/18/2024 11:59 PM EDT Hospital Encounter [facility] 1 [address] [place] [address] Myelodysplasia (myelodysplastic syndrome) (CMS/HCC) (Primary Dx); Thrombocytopenia (CMS/HCC) Discharge Disposition: Home or Self Care 11/18/2024 11:00 AM EDT Office Visit [facility]ematology/BMT and Cellular Therapy Program [address] [place] [phone] Isaura Wynn APRN Myelodysplasia (myelodysplastic syndrome) (CMS/HCC) (Primary Dx) 11/18/2024 10:30 AM EDT Clinical Support [facility]ematology/BMT and Cellular Therapy Program [address] [place] [phone] 11/18/2024 Telephone [facility] [address] [place] [address] Maia Velasquez, PharmD 11/18/2024 Telephone [facility]ology/BMT and Cellular Therapy Program [address] [place] [address] [place] [address] Brittny Mahoney RN 11/18/2024 Telephone [facility]ology/BMT [facility] Cellular Therapy Program [address] [place] [address] Gricel Gonzalez RN 11/18/2024 Travel 11/17/2024 Travel 11/10/2024 3:00 PM EDT - 11/10/2024 11:59 PM EDT Hospital Encounter [facility] [address] [place] [address] Myelodysplasia (myelodysplastic syndrome) (CMS/HCC) (Primary Dx); Thrombocytopenia (CMS/HCC) Discharge Disposition: Home or Self Care 11/10/2024 2:00 PM EDT Procedure Visit [facility] Hematology/BMT and Cellular Therapy Program [address] [facility], [address] [place] [phone] Elaina Boss PA Myelodysplasia (myelodysplastic syndrome) (CMS/HCC) (Primary Dx) 11/10/2024 1:30 PM EDT Clinical Support [facility]ematology/BMT and Cellular Therapy Program [address] [phone] Eliana Vicente RN 11/10/2024 Travel 11/05/2024 11:00 AM EDT Clinical Support [facility] [address] [facility], [address] [place] [address] Dyspnea on exertion 11/05/2024 10:00 AM EDT Office Visit [facility] [address] [facility], [address] [place] [phone] Elsa Razo, MIRROR FABRICATION SUPERVISOR Pre-transplant evaluation for stem cell transplant (Primary Dx); Myelodysplasia (myelodysplastic syndrome) (CMS/HCC); Dyspnea on exertion; Coronary artery disease involving [place] coronary artery of [place] heart without angina pectoris; Thrombocytopenia (CMS/HCC) 11/05/2024 Results Follow-Up [facility] [address] [facility], [address] [place] [phone] Elsa Razo, MIRROR FABRICATION SUPERVISOR 11/05/2024 Travel 11/03/2024 2:31 PM EDT - 11/03/2024 6:28 PM EDT Emergency [facility] Emergency Department [address] [place] [phone] Kyle Bearden MD Symptomatic anemia (Primary Dx); Thrombocytopenia (CMS/HCC); Neutropenia, unspecified type (CMS/HCC) Discharge Disposition: Home or Self Care 11/03/2024 Travel 11/03/2024 Telephone [facility]ology[facility]BMT [facility] Cellular Therapy Program [address] [facility] [place] [address] Virgen Vargas MD 10/29/2024 Telephone [facility]ematology/BMT and Cellular Therapy Program [address] [facility], [address] [place] [phone] Virgen Vargas MD 10/26/2024 1:20 PM EDT - 10/26/2024 11:59 PM EDT Hospital Encounter [facility] 2 [address] [place] [phone] Myelodysplasia (myelodysplastic syndrome) (CMS/HCC) (Primary Dx); Thrombocytopenia (CMS/HCC) Discharge Disposition: Home or Self Care 10/26/2024 Travel 10/25/2024 2:50 PM EDT - 10/25/2024 11:59 PM EDT Hospital Encounter [facility] 2 [address] [place] [phone] Myelodysplasia (myelodysplastic syndrome) (CMS/HCC) (Primary Dx) Discharge Disposition: Home or Self Care 10/25/2024 Travel 10/24/2024 2:12 PM EDT - 10/24/2024 11:59 PM EDT Hospital Encounter [facility] [address] [place] [address] Myelodysplasia (myelodysplastic syndrome) (CMS/HCC) (Primary Dx) Discharge Disposition: Home or Self Care 10/24/2024 Travel 10/24/2024 Orders Only [facility] Hematology/BMT and Cellular Therapy Program [address] [facility], [address] [place] [address] [place] [address] Maia Kaplan RN 10/24/2024 Telephone [facility] Hematology/BMT [facility] Cellular Therapy Program [address] [place] [address] Virgen Vargas MD 10/23/2024 2:53 PM EDT - 10/23/2024 11:59 PM EDT Hospital Encounter [facility] 2 [address] [place] [address] Myelodysplasia (myelodysplastic syndrome) (CMS/HCC) (Primary Dx) Discharge Disposition: Home or Self Care 10/23/2024 Travel 10/22/2024 3:39 PM EDT - 10/22/2024 11:59 PM EDT Hospital Encounter [facility] 2 [address] [place] [address] Thrombocytopenia (CMS/HCC) (Primary Dx); Myelodysplasia (myelodysplastic syndrome) (CMS/HCC) Discharge Disposition: Home or Self Care 10/22/2024 Travel 10/21/2024 3:08 PM EDT - 10/21/2024 11:59 PM EDT Hospital Encounter [facility] 2 [address] [place] [address] Myelodysplasia (myelodysplastic syndrome) (CMS/HCC) (Primary Dx); SOB (shortness of breath) Discharge Disposition: Home or Self Care 10/21/2024 Travel 10/20/2024 6:09 PM EDT - 10/20/2024 11:59 PM EDT Hospital Encounter [facility] Radiology [address] [place] [address] Myelodysplasia (myelodysplastic syndrome) (CMS/HCC) Discharge Disposition: Home or Self Care 10/20/2024 2:42 PM EDT - 10/20/2024 6:08 PM EDT Hospital Encounter [facility] 1 [address] [place] [address] Myelodysplasia (myelodysplastic syndrome) (CMS/HCC) (Primary Dx); SOB (shortness of breath); Smoker Discharge Disposition: Home or Self Care 10/20/2024 Travel 10/19/2024 Travel 10/17/2024 Telephone [facility] Hematology/BMT and Cellular Therapy Program [address] [place] [phone] Virgen Vargas MD 10/16/2024 Telephone [facility] Hematology/BMT and Cellular Therapy Program [address] [place] [phone] Virgen Vargas MD 10/15/2024 Lab Requisition [facility] [address] [place] [address] Virgen Vargas MD Abnormal finding of blood chemistry, unspecified 10/14/2024 Telephone [facility] [address] [place] [address] Andrea Burns, PharmD New Start 10/13/2024 2:30 PM EDT Office Visit [facility] Hematology/BMT and Cellular Therapy Program [address] [place] [address] [place] [phone] Virgen Vargas MD Myelodysplasia (myelodysplastic syndrome) (CMS/HCC) (Primary Dx); Encounter for antineoplastic chemotherapy 10/13/2024 2:00 PM EDT Clinical Support [facility] Hematology/BMT and Cellular Therapy Program [address] [phone] Eliana Vicente RN 10/13/2024 Telephone [facility] Hematology/BMT and Cellular Therapy Program [address] [place] [phone] Mague Trevino, RN Critical Lab Results 10/13/2024 Travel from Last 3 Months Immunizations Immunization [...] drink first t manav in the morning (EYE-WIRE CHIEF) to steady your nerves or to get [...] Mass Index 28.89 01/06/2025 8:56 AM EDT Plan of Treatment Upcoming Encounters Date Type Department Care Team (Late st Contact Info) Description 01/13/2025 9:30 AM EDT Clinical Support [facility] Hematology/BMT and Cellular Therapy Program [address] [place] [address] 01/13/2025 10:00 AM EDT Office Visit [facility]ematology/BMT and Cellular Therapy Program [address] [facility] [address] Isaura Wynn, MIRROR FABRICATION SUPERVISOR 800 [facility] [address] [place] [phone] 01/13/2025 11:30 AM EDT Appointment [facility] [address] [place] [address] 01/14/2025 2:00 PM EDT Appointment [facility] [address] [place] [address] 01/15/2025 2:00 PM EDT Appointment [facility] [address] [place] [address] 01/16/2025 2:00 PM EDT Appointment [facility] [address] [place] [address] 01/17/2025 2:00 PM EDT Appointment [facility] [address] [place] [address] 01/18/2025 2:00 PM EDT Appointment [facility] [address] [place] [address] 01/19/2025 2:00 PM EDT Appointment [facility] [address] [place] [address] 03/10/2025 11:20 AM EDT Office Visit [facility] [address] [facility], 2nd [place] [address] Elsa Razo, MIRROR FABRICATION SUPERVISOR [address] [place] [phone] Health Maintenance Due Date Last Done Comments [...] 2015 UKY-Abdominal Aortic Aneurysm (AAA) Screening 2020 [id number] Vaccine (3 - Pfizer risk series) 11/11/2020 [...] this topic Medical Devices Implanted Type Area Flight Manager Device Identifier Shelf Expiration Date Model / Serial / Lot Port Clearvue Power 8fr - [id number] Implanted:Qty: 1 on 12/01/2024 by Mckinley Lee MD at [facility] Peripherial Vascular-[id number] / / Procedures Procedure Name Priority Date/Time Associated Diagnosis Comments BIOPSY BONE MARROW Routine 01/06/2025 10 :00 AM EDT Myelodysplasia (myelodysplastic syndrome) (CMS/HCC) LEUKEMIA/LYMPHOMA - IMMUNOPHENOTYPING BY FLOW CYTOMETRY Routine 01/06/2025 9:48 AM EDT Myelodysplasia (myelodysplastic syndrome) (CMS/HCC) COMPREHENSIVE METABOLIC PANEL, PLASMA Routine 01/06/2025 8:49 AM EDT Myelodysplasia (myelodysplastic syndrome) (CMS/HCC) CBC WITH AUTO DIFFERENTIAL Routine 01/06/2025 8:49 AM EDT Myelodysplasia (myelodysplastic syndrome) (CMS/HCC) PLATELET COUNT, BLOOD STAT 12/22/2024 10:57 AM [...] EDT Thrombocytopenia (CMS/HCC) WBC DIFFERENTIAL Routine 12/01/2024 9:3 9 AM EDT CBC W/O DIFFERENTIAL STAT 12/01/2024 [...] Recently Relevant to Health Maintenance Results * BIOPSY BONE MARROW (01/06/2025 10:00 AM EDT) Narrative Kierra Novak APRN - 01/06/2025 10:00 AM EDT Kierra Novak APRN 01/06/2025 10:24 AM Biopsy bone marrow Date/Time: 01/06/2025 10:00 AM Performed by: Kierra Novak APRN Authorized by: Kierra Novak APRN Consent: Consent obtained: Written Consent given by: Patient Risks, benefits, and alternatives were discussed: yes Risks discussed: Bleeding, infection and pain [place] protocol: Procedure explained and questions answered to [...] by Flow Cytometry (01/06/2025 9:48 AM EDT) Only the most recent of3 resultswithin the time period is included. Clinical Indication AML 01/07/2025 10:18 AM EDT [facility] Flow Cytometry Interpretation APPROXIMATELY 16% MYELOID BLASTS; EXPRESSING CD34, CD117, CD13, CD33, HLA-DR, PARTIAL CD7, PARTIAL CD123, VARIABLE CD38, AND MODERATE CD45, SEE COMMENT, BONE MARROW ASPIRATE. 01/07/2025 10:18 AM EDT [facility] Comments Specimen viability is [...] disease. Final interpretation requires morphologic correlation (BM [id number]). The following antibodies were used in this analysis: CD45, CD2, CD3, CD4, CD5, CD7, CD8, CD10, CD13, CD14, CD15, CD16, CD19, CD20, CD33, CD34, CD38, CD56, CD117, HLA-DR, kappa surface light chains, lambda surface light chains, CD123 01/07/2025 10:18 AM EDT [facility] Disclaimer This test was developed and its performance characteristics determined by the Immuno-Molecular Pathology Laboratory at the [facility]. It has not been cleared or [...] clinical laboratory testing. 01/07/2025 10:18 AM EDT [facility] Pathologist Signature Reviewed by: Tessie Peralta MD 01/07/2025 10:18 AM EDT [facility] MRD Indicated Test Not Indicated 10:18 AM EDT [facility] Bone Marrow Specimen from bone marrow obtained by aspiration / Unknown Non-blood Collection / Unknown 01/06/2025 9:48 AM EDT 01/06/2025 11:20 AM EDT us Virgen Vargas MD LAB FLOW CYTOMETRY ORDERABLES Final Result [facility] [address] [place] [address] * (ABNORMAL) CBC and differential (01/06/2025 8:49 AM EDT) Only the most recent of20 resultswithin the time period is included. WBC Count 0.59(LL) 3.70 - 10.30 10*3/uL LAB HEMATOLOGY METHOD 01/06/2025 11:36 AM EDT [facility] RBC Count 2.95(L) 4.60 - 6.10 10*6/uL LAB HEMATOLOGY METHOD 01/06/2025 11:36 AM EDT [facility] HGB 8.8(L) 13.7 - 17.5 g/dL LAB HEMATOLOGY METHOD 01/06/2025 11:36 AM EDT [facility] HCT 25.3(L) 40.0 - 51.0 % LAB HEMATOLOGY METHOD 01/06/2025 11:36 AM EDT [facility] Platelet Count 75(L) 155 - 369 10*3/uL LAB HEMATOLOGY METHOD 01/06/2025 11:36 AM EDT [facility] MCV 86 79 - 98 fL LAB HEMATOLOGY METHOD 01/06/2025 11:36 AM EDT [facility] MCH 29.8 26.0 - 32.0 pg LAB HEMATOLOGY METHOD 01/06/2025 11:36 AM EDT [facility] MCHC 34.8 30.7 - 35.5 g/dL LAB HEMATOLOGY METHOD 01/06/2025 11:36 AM EDT [facility] RDW 14.6(H) 11.5 - 14.5 % LAB HEMATOLOGY METHOD 01/06/2025 11:36 AM EDT [facility] MPV 10.7 8.8 - 12.5 fL LAB HEMATOLOGY METHOD 01/06/2025 11:36 AM EDT [facility] nRBC 3.4(H) <=0.0 per 100 WBCs LAB HEMATOLOGY METHOD 01/06/2025 11:36 AM EDT [facility] Differential Type Automated LAB HEMATOLOGY METHOD 01/06/2025 11:36 AM EDT [facility] Neutrophils % 5 % LAB HEMATOLOGY METHOD 01/06/2025 11:36 AM EDT [facility] Lymphocytes % 88 % LAB HEMATOLOGY METHOD 01/06/2025 11:36 AM EDT [facility] Monocytes % 7 % LAB HEMATOLOGY METHOD 01/06/2025 11:36 AM EDT [facility] Eosinophils % 0 % LAB HEMATOLOGY METHOD 01/06/2025 11:36 AM EDT [facility] Basophils % 0 % LAB HEMATOLOGY METHOD 01/06/2025 11:36 AM EDT [facility] Immature Granulocytes % 0 % LAB HEMATOLOGY METHOD 01/06/2025 11:36 AM EDT [facility] Neutrophils Absolute 0.03(LL) 1.60 - 6.10 10*3/uL LAB HEMATOLOGY METHOD 01/06/2025 11:36 AM EDT [facility] Lymphocytes Absolute 0.52(L) 1.20 - 3.90 10*3/uL LAB HEMATOLOGY METHOD 01/06/2025 11:36 AM EDT [facility] Monocytes Absolute 0.04(L) 0.30 - 0.90 10*3/uL LAB HEMATOLOGY METHOD 01/06/2025 11:36 AM EDT [facility] Eosinophils Absolute 0.00 0.00 - 0.50 10*3/uL LAB HEMATOLOGY METHOD 01/06/2025 11:36 AM EDT [facility] Basophils Absolute 0.00 0.00 - 0.10 10*3/uL LAB HEMATOLOGY METHOD 01/06/2025 11:36 AM EDT [facility] Immature Granulocytes Absolute 0.00 0.00 - 0.06 10*3/uL LAB HEMATOLOGY METHOD 01/06/2025 11:36 AM EDT [facility] Blood Venous blood specimen / Unknown Venipuncture / Unknown 01/06/2025 8:49 AM EDT 01/06/2025 9:01 AM EDT Narrative [facility] - 01/06/2025 11:36 AM EDT Therapeutic decision making should be based on absolute values, rather than percentages. us Christina Ramos MD LAB BLOOD ORDERABLES Final Resul t [facility] [address] [place] [address] * (ABNORMAL) Comprehensive metabolic panel (01/06/2025 8:49 AM EDT) Only the most recent of15 resultswithin the time period is included. Glucose, Plasma 100(H) 74 - 99 mg/dL 01/06/2025 9:34 AM EDT [facility] BUN, Plasma 8 8 - 23 mg/dL 01/06/2025 9:34 AM EDT [facility] Creatinine, Plasma 0.76 0.70 - 1.20 mg/dL 01/06/2025 9:34 AM EDT [facility] BUN/Creatinine Ratio 11 01/06/2025 9:34 AM EDT [facility] Sodium, Plasma 138 136 - 145 mmol/L 01/06/2025 9:34 AM EDT [facility] Potassium, Plasma 4.3 3.6 - 4.9 mmol/L 01/06/2025 9:34 AM EDT [facility] Chloride, Plasma 109(H) 97 - 107 mmol/L 01/06/2025 9:34 AM EDT [facility] CO2, Plasma 21(L) 22 - 29 mmol/L 01/06/2025 9:34 AM EDT [facility] Anion Gap 8 6 - 16 mmol/L 01/06/2025 9:34 AM EDT [facility] Total Calcium, Plasma 8.8(L) 8.9 - 10.2 mg/dL 01/06/2025 9:34 AM EDT [facility] Total Protein 6.6 6.3 - 7.9 g/dL 01/06/2025 9:34 AM EDT [facility] Albumin, Plasma 3.9 3.5 - 5.2 g/dL 01/06/2025 9:34 AM EDT [facility] AST, Plasma 25 10 - 50 U/L 01/06/2025 9:34 AM EDT [facility] ALT, Plasma 28 10 - 50 U/L 01/06/2025 9:34 AM EDT [facility] Alkaline Phosphatase, Plasma 83 40 - 115 U/L 01/06/2025 9:34 AM EDT [facility] Total Bilirubin, Plasma 0.5 0.2 - 1.1 mg/dL 01/06/2025 9:34 AM EDT [facility] eGFRcr 97.3 mL/min/1.7 3m*2 01/06/2025 9:34 AM EDT [facility] Comment:Reported eGFRcr in m L/min/1.73m2 is based the CKD-EPI 2020 equation that does not use a race coefficient. Blood Venous blood specimen / Unknown Venipuncture / Unknown 01/06/2025 8:49 AM EDT 01/06/2025 9:01 AM EDT us Christina Ramos MD LAB BLOOD ORDERABLES Final Resul t Performing Organization Address City/[facility]/ZIP Co de Phone Number [facility] [address] [place] [address] * Transfuse platelets (12/22/2024 12:04 PM EDT) Only the most recent of12 resultswithin the time period is included. Kayli CHIU BLOOD TRANSFUSION ORDERA BLES Final Result * (ABNORMAL) Platelet count (12/22/2024 10:57 AM EDT) Only the most recent of11 resultswithin the time period is included. Platelet Count 36(L) 155 - 369 10*3/uL LAB HEMATOLOGY METHOD 12/22/2024 11:14 AM EDT [facility] Blood Venous blood specimen / Unknown Venipuncture / Unknown 12/22/2024 10:57 AM EDT 12/22/2024 11:04 AM EDT Virgen Vargas MD LAB BLOOD ORDERABLES Final Re sult Performing Organization Address City/[facility]/ZIP Co de Phone Number [facility] [address] [place] [address] * Prepare Leukocyte Reduced Platelets: 1 Units (12/22/2024 9:44 AM EDT) Only the most recent of13 resultswithin the time period is included. Product Code [id number] CH BLOO D BANK Dispense Status Transfused BLOOD BANK Blood Expiration Date [id number] BLOOD BANK Unit Number [id number] B LOOD BANK Product Blood Type 0600 BLOOD BANK Blood Type A- CH BLOOD BANK Blood Venous blood specimen / Unknown Kayli CHIU BLOOD BANK PRODUCT ORDER VIKAS Final Result Performing Organization Address City/[facility]/ZIP Co de Phone Number BLOOD BANK [address] [place] [address], * Transfuse RBC, Irradiated (12/20/2024 1:31 PM [...] ORDERABLE S Final Result Performing Organization Address [facility] Co de Phone Number BLOOD BANK [address] * Prepare Leukocyte Reduced RBC: 1 Units, Irradiated (12/20/2024 10:01 AM EDT) Only the most recent of7 resultswithin the time period is included. Pathologist [facility] Product Code [id number] CH BLOO D BANK Dispense Status Transfused BLOOD BANK Blood Expiration Date [id number] BLOOD BANK Unit Number [id number] CH B LOOD BANK Product Blood Type 9500 BLOOD BANK Blood Type O- BLOOD BANK Crossmatch Compatible BLOOD BANK Other Kayli CHIU BLOOD BANK PRODUCT ORDER VIKAS Final Result Performing Organization Address [facility] de Phone Number BLOOD BANK [address] * Exception to Standard Practice, Pathologist [...] ORDERAB LES Final Result Performing Organization Address City/[facility]/ZIP Co de Phone Number BLOOD BANK [address] * Group A Streptococcus by PCR (12/16/2024 9:40 AM EDT) Group A Streptococcus PCR Result Not Detected Not Detected 12/16/2024 11:53 AM EDT [facility] Swab Pharyngeal structure / Unknown Non-blood Collection / Unknown 12/16/2024 9:40 AM EDT 12/16/2024 10:10 AM EDT Isaura Wynn APRN LAB MICROBIOLOGY - GENERAL ORD ERABLES Final Result Performing Organization Address City/[facility]/ZIP Co de Phone Number [facility] [address] [place] [address] * Streptococcus Culture (12/16/2024 9:40 AM EDT) Culture Reading Strep A No Streptococcus pyogenes or Streptococcus dysgalactiae isolated 12/17/2024 2:28 PM EDT [facility] Swab Pharyngeal structure / Unknown Non-blood Collection / Unknown 12/16/2024 9:40 AM EDT 12/16/2024 10:10 AM EDT us Isaura Wynn APRN LAB MICROBIOLOGY - GENERAL ORD ERABLES Final Result [facility] [address] [place] [address] * (ABNORMAL) Uric acid (12/16/2024 8:10 AM EDT) Only the most recent of4 resultswithin the time period is included. Uric Acid, Plasma 3.0(L) 3.7 - 8.0 mg/dL 12/16/2024 8:58 AM EDT [facility] Blood Venous blood specimen / Unknown Venipuncture / Unknown 12/16/2024 8:10 AM EDT 12/16/2024 8:27 AM EDT us Isaura Wynn APRN LAB BLOOD ORDERABLES Final Res ult Performing Organization Address City/[facility]/ZIP Co de Phone Number [facility] [address] [place] [address] * Phosphorus, Plasma (12/16/2024 8:10 AM EDT) Only the most recent of4 resultswithin the time period is included. Phosphorus, Plasma 3.4 2.5 - 4.5 mg/dL 12/16/2024 8:58 AM EDT [facility] Blood Venous blood specimen / Unknown Venipuncture / Unknown 12/16/2024 8:10 AM EDT 12/16/2024 8:27 AM EDT us Isaura Wynn APRN LAB BLOOD ORDERABLES Final Res ult [facility] [address] [place] [address] * Magnesium, Plasma (12/16/2024 8:10 AM EDT) Only the most recent of4 resultswithin the time period is included. Magnesium, Plasma 2.4 1.9 - 2.4 mg/dL 12/16/2024 8:58 AM EDT [facility] Blood Venous blood specimen / Unknown Venipuncture / Unknown 12/16/2024 8:10 AM EDT 12/16/2024 8:27 AM EDT us Isaura Wynn APRN LAB BLOOD ORDERABLES Final Res ult Performing Organization Address City/[facility]/ZIP Co de Phone Number [facility] [address] [place] [address] * Lactate Dehydrogenase, Plasma (12/16/2024 8:10 AM EDT) Only the most recent of5 resultswithin the time period is included. LDH, Plasma 230 116 - 250 U/L 12/16/2024 8:58 AM EDT [facility] Blood Venous blood specimen / Unknown Venipuncture / Unknown 12/16/2024 8:10 AM EDT 12/16/2024 8:27 AM EDT us Isaura Wynn MIRROR FABRICATION SUPERVISOR LAB BLOOD ORDERABLES Final Res ult Performing Organization Address City/[facility]/ZIP Co de Phone Number [facility] [address] [place] [address] * Morphology (12/11/2024 8:38 AM EDT) Only the most recent of5 resultswithin the time period is included. Elliptocytes/ Ovalocytes Present LAB HEMATOLOGY METHOD 12/11/2024 10:53 AM EDT [facility] RBC Morphology Slide Reviewed LAB HEMATOLOGY METHOD 12/11/2024 10:53 AM EDT [facility] Platelet Estimate Platelet smear estimate consistent with automated count LAB HEMATOLOGY METHOD 12/11/2024 10:53 AM EDT [facility] Blood Venous blood specimen / Unknown Venipuncture / Unknown 12/11/2024 8:38 AM EDT 12/11/2024 8:50 AM EDT us Virgen Vargas MD LAB BLOOD ORDERABLES Final Re sult [facility] [address] [place] [id number] * (ABNORMAL) Manual Differential (12/11/2024 8:38 AM [...] LAB HEMATOLOGY METHOD 12/11/2024 10:53 AM EDT [facility] Lymphocytes Absolute 0.55(L) 1.20 - 3.90 10*3/uL LAB HEMATOLOGY METHOD 12/11/2024 10:53 AM EDT [facility] Reactive Lymphocytes Absolute 0.02 10*3/uL LAB HEMATOLOGY METHOD 12/11/2024 10:53 AM EDT [facility] Monocytes Absolute 0.01(L) 0.30 - 0.90 10*3/uL LAB HEMATOLOGY METHOD 12/11/2024 10:53 AM EDT [facility] Eosinophils Absolute 0.00 0.00 - 0.50 10*3/uL LAB HEMATOLOGY METHOD 12/11/2024 10:53 AM EDT [facility] Basophils Absolute 0.00 0.00 - 0.10 10*3/uL LAB HEMATOLOGY METHOD 12/11/2024 10:53 AM EDT [facility] Blood Venous blood specimen / Unknown Venipuncture / Unknown 12/11/2024 8:38 AM EDT 12/11/2024 8:50 AM EDT us Virgen Vargas MD LAB BLOOD ORDERABLES Final Re sult [facility] [address] [place] [id number] * Peripheral blood smear, pathologist interpretation (12/11/2024 8:38 AM EDT) Only the most recent of3 resultswithin the time period is included. Clinical Diagnosis, Peripheral Smear History of acute myeloid leukemia (recent bone marrow dated 12/09/2024 with 14% blasts) LAB HEMATOLOGY METHOD 12/11/2024 4:46 PM EDT [facility] Interpretation , Peripheral Smear Marked leukopenia with neutropenia and 1% circulating blasts. Dysplastic neutrophils (hypogranular) are noted. Moderate anemia and marked thrombocytopen ia. 12/11/2024 4:46 PM EDT [facility] Pathologist Signature, Peripheral Smear 12/11/2024 4:46 PM EDT [facility] Comment:Reviewed by: Omra Peralta MD Blood Venous blood specimen / Unknown Venipuncture / Unknown 12/11/2024 8:38 AM EDT 12/11/2024 8:50 AM EDT us Virgen Vargas MD LAB PATHOLOGY ORDERABLES Terri lara Result [facility] [place] [address] * Chromosome Karyotype, Oncology (12/09/2024 10:15 AM EDT) Only the most recent of2 resultswithin the time period is included. Specimen Type Bone Marrow 12/16/2024 5:59 PM EDT [facility] Clinical Indication Acute Myeloid Leukemia 12/16/2024 5:59 PM EDT [facility] Specimen Adequacy Adequate 025 5:59 PM EDT [facility] Chromosome Analysis Result Giemsa-banded metaphase cells from unstimulated bone marrow cultures showed the following chromosome pattern: 43~45,X,-Y,t(4;1 4)(q21;q32),add( 5)(q13),add(16)( q11.2),-17,add(2 0)(q11.2)[cp13]/ 46,XY[7] 12/16/2024 5:59 PM EDT [facility] Interpretation Abnormal male chromosome [...] were observed on this patient's previous specimen [id number] and indicate persistent disease. Clinical correlation is recommended. Note: Per [employer] ([employer]) requirement additional karyotypes were performed and charged due to the presence of clonal abnormalities. # cells counted = 20 # cells analyzed = 20 # cells karyotyped = 3 Band resolution: 400 12/16/2024 5:59 PM EDT [facility] Pathologist Signature Reviewed by: Mesfin Rae 12/16/2024 5:59 PM EDT [facility] Bone Marrow Non-blood Collection / Unknown 12/09/2024 10:15 AM EDT 12/09/2024 12:48 PM EDT us Virgen Vargas MD LAB CYTOGENETICS ORDERABLES F inal Result [facility] [address] [place] [address] * Bone marrow exam (12/09/2024 10:15 AM EDT) Only the most recent of2 resultswithin the time period is included. Case Report Bone Marrow Case: [id number] Authorizing Provider: Virgen Vargas MD Collected: 12/09/2024 1015 Ordering Location: [facility] Hematology/BMT and Received: 12/09/2024 1145 Cellular Therapy Program Pathologist: Gerry Jensen MD Specimens: A) - Bone Marrow Aspirate, right B) - Bone Marrow Biopsy, right C) - Peripheral Blood for Bone Marrow 12/19/2024 5:35 PM EDT [facility] Cytogenetics Report, Addendum Chromosome [...] were observed on this patient's previous specimen [id number] and indicate persistent disease. 12/19/2024 5:35 PM EDT [facility] Addendum electronically signed by Gerry Jensen MD on 12/19/2024 at 1735 EDT Final Diagnosis PERIPHERAL BLOOD AND BONE MARROW, RIGHT POSTERIOR ILIAC CREST, (PERIPHERAL SMEAR, ASPIRATE SMEAR, AND CORE BIOPSY): - NORMOCELLULAR BONE MARROW WITH ERYTHROID HYPERPLASIA, VIRTUALLY ABSENT MATURING GRANULOPOIESIS, AND 14% BLASTS, SEE COMMENT. 12/19/2024 5:35 PM EDT [facility] at 1706 EDT Comment While by flow cytometric analysis blasts constitute 23% of cellularity, the majority of bone marrow cellularity consists of erythroid precursors that are removed by flow cytometry. This leads to the discrepancy between the percentage of blasts by flow cytometry and morphologic examination. Nonetheless, the findings are consistent with some residual disease. 12/19/2024 5:35 PM EDT [facility] Clinical Information AML s/p cycle 2 12/19/2024 5:35 PM EDT [facility] CBC and Differential PERIPHERAL [...] Platelets are decreased. 12/19/2024 5:35 PM EDT [facility] Bone Marrow Differential BONE MARROW DIFFERENTIAL: 400 cells Normal Patient Neutrophils 15-50 0 Metamyelocytes 4-19 0 Myelocytes 1-18 1 Promyelocytes 1-8 0 Blasts 0-2 14 Monocytes 0-5 3 Erythroid 16-38 76 Lymphocytes 3-24 1 Eosinophils 0-6 0 Basophils 0-2 0 Plasma cells 0-4 5 Other 12/19/2024 5:35 PM EDT [facility] Aspirate Smear The bone [...] predominantly normal morphology. 12/19/2024 5:35 PM T [facility] Core Biopsy The core biopsy is small and shows 5 mm of a normocellular bone marrow with a cellularity of approximately 30% that is predominantly comprised of erythroid precursors. Erythropoiesis is left-shifted, but maturing. Maturing granulopoiesis is virtually absent. Myeloid cells almost entirely consists of immature precursors. Megakaryocytes are decreased and exhibit predominantly normal morphology. 12/19/2024 5:35 PM EDT [facility] Flow Cytometry Interpretation Flow cytometric analysis shows approximately 23% population of CD34 positive myeloid blasts expressing CD34, CD117, CD13, CD33, HLA-DR, partial CD7, variable CD123, partial CD38, and moderate CD45 ([id number]). 12/19/2024 5:35 PM EDT [facility] Gross Description B. RIGHT A single specimen is received in formalin labeled bone marrow biopsy right posterior iliac crest and consists of 1 piece(s) of red/white tissue measuring 0.7 cm in length 0.2 cm in diameter. The specimen is submitted in to Histology for decalcification and routine processing. Cold Time: <1m 12/19/2024 5:35 PM EDT [facility] Note: A resident was involved in the service. I attest I examined the relevant preparations for the specimens and confirmed the diagnosis or interpretation. 12/19/2024 5:35 PM EDT [facility] Bone Marrow Peripheral blood [...] PATHOLOGY ORDERABLES Edit ed Result - Final [facility] [address] [place] [address] * BIOPSY BONE MARROW (12/09/2024 10:00 AM EDT) Narrative Kierra Novak APRN - 12/09/2024 10:00 AM EDT Kierra Novak APRN 12/09/2024 12:08 PM Biopsy bone marrow Date/Time: 12/09/2024 10:00 AM Performed by: Kierra Novak APRN Authorized by: Kierra Novak APRN Consent: Consent obtained: Written Consent given by: Patient Risks, benefits, and alternatives were discussed: yes Risks discussed: Bleeding, infection and pain [place] protocol: Procedure explained and questions answered to [...] well, no immediate complications us Kierra Novak MIRROR FABRICATION SUPERVISOR IN CLINIC/BEDSIDE ORDERAB LES Final Result * [...] for port placement. New AML, starting chemotherapy. Border Guard: Mckinley Lee MD Secondary Crane Follower: Dr. David Holt Rad Dose: 6 mGy [...] was placed supine on the fluoro table. Rehabilitation Director ultrasonography revealed the vein to be compressible [...] with no evidence of complication. Device: 6 Panamanian port catheter cut to length of 25 cm. COMPARISON: None. FINDINGS: Patent R IJV COMPLICATION: No. Procedure Note Mckinley Lee MD - 12/02/2024 CLINICAL INDICATION: 69M here for port placement. New AML, starting chemotherapy. Border Guard: Mckinley Lee MD Secondary Crane Follower: Dr. David Holt Rad Dose: 6 mGy [...] patient was placed supine on the fluoro table.Rehabilitation Director ultrasonography revealed the vein to be compressible [...] well with no evidence ofcomplication. Device: 6 Panamanian port catheter cut to length of 25 [...] MD on 12/02/2024 7:02 AM Isaura Wynn MIRROR FABRICATION SUPERVISOR IMG IR PROCEDURES Final Result * (ABNORMAL) WBC Differential (12/01/2024 9:39 AM EDT) Differential Type Automated LAB HEMATOLOGY METHOD 12/01/2024 11:33 AM EDT [facility] Neutrophils % 9 % LAB HEMATOLOGY METHOD 12/01/2024 11:33 AM EDT [facility] Lymphocytes % 84 % LAB HEMATOLOGY METHOD 12/01/2024 11:33 AM EDT [facility] Monocytes % 6 % LAB HEMATOLOGY METHOD 12/01/2024 11:33 AM EDT [facility] Eosinophils % 1 % LAB HEMATOLOGY METHOD 12/01/2024 11:33 AM EDT [facility] Basophils % 0 % LAB HEMATOLOGY METHOD 12/01/2024 11:33 AM EDT [facility] Immature Granulocytes % 0 % LAB HEMATOLOGY METHOD 12/01/2024 11:33 AM EDT [facility] Immature Granulocytes Absolute 0.00 0.00 - 0.06 10*3/uL LAB HEMATOLOGY METHOD 12/01/2024 11:33 AM EDT [facility] Neutrophils Absolute 0.06(LL) 1.60 - 6.10 10*3/uL LAB HEMATOLOGY METHOD 12/01/2024 11:33 AM EDT [facility] Lymphocytes Absolute 0.59(L) 1.20 - 3.90 10*3/uL LAB HEMATOLOGY METHOD 12/01/2024 11:33 AM EDT [facility] Monocytes Absolute 0.04(L) 0.30 - 0.90 10*3/uL LAB HEMATOLOGY METHOD 12/01/2024 11:33 AM EDT [facility] Basophils Absolute 0.00 0.00 - 0.10 10*3/uL LAB HEMATOLOGY METHOD 12/01/2024 11:33 AM EDT [facility] Eosinophils Absolute 0.01 0.00 - 0.50 10*3/uL LAB HEMATOLOGY METHOD 12/01/2024 11:33 AM EDT [facility] Blood Venous blood specimen / Unknown Venipuncture / Unknown 12/01/2024 9:39 AM EDT 12/01/2024 9:56 AM EDT us Virgen Vargas MD LAB BLOOD ORDERABLES Final Re sult [facility] [address] [place] [address] * (ABNORMAL) CBC (12/01/2024 9:39 AM EDT) WBC Count 0.64(LL) 3.70 - 10.30 10*3/uL LAB HEMATOLOGY METHOD 12/01/2024 4:21 PM EDT [facility] RBC Count 2.29(L) 4.60 - 6.10 10*6/uL LAB HEMATOLOGY METHOD 12/01/2024 4:21 PM EDT [facility] HGB 7.6(L) 13.7 - 17.5 g/dL LAB HEMATOLOGY METHOD 12/01/2024 4:21 PM EDT [facility] HCT 20.9(L) 40.0 - 51.0 % LAB HEMATOLOGY METHOD 12/01/2024 4:21 PM EDT [facility] Platelet Count 14(LL) 155 - 369 10*3/uL LAB HEMATOLOGY METHOD 12/01/2024 4:21 PM EDT [facility] MCV 91 79 - 98 fL LAB HEMATOLOGY METHOD 12/01/2024 4:21 PM EDT [facility] MCH 33.2(H) 26.0 - 32.0 pg LAB HEMATOLOGY METHOD 12/01/2024 4:21 PM EDT [facility] MCHC 36.4(H) 30.7 - 35.5 g/dL LAB HEMATOLOGY METHOD 12/01/2024 4:21 PM EDT [facility] RDW 17.7(H) 11.5 - 14.5 % LAB HEMATOLOGY METHOD 12/01/2024 4:21 PM EDT [facility] MPV LAB HEMATOLOGY METHOD 12/01/2024 4:21 PM EDT [facility] Comment:Not Measured nRBC 0.0 <=0.0 per 100 WBCs LAB HEMATOLOGY METHOD 12/01/2024 4:21 PM EDT [facility] Blood Venous blood specimen / Unknown Venipuncture / Unknown 12/01/2024 9:39 AM EDT 12/01/2024 9:56 AM EDT us Mckinley Lee MD LAB BLOOD ORDERABLES Final R esult [facility] [address] [place] [address] * Protime-INR (11/26/2024 10:51 AM EDT) Prothrombin Time 13.8 12.0 - 14.3 sec LAB COAGULATION METHOD 11/26/2024 11:52 AM EDT [facility] INR 1.1 0.9 - 1.1 LAB COAGULATION METHOD 11/26/2024 11:52 AM EDT [facility] Blood Venous blood specimen / Unknown Venipuncture / Unknown 11/26/2024 10:51 AM EDT 11/26/2024 10:51 AM EDT Narrative [facility] - 11/26/2024 11:52 AM EDT OPTIMAL INR RANGES FOR PATIENT ON ORAL ANTICOAGULANT THERAPY Prevention of venous thromboembolism INR 2.0 to 3.0 In patients with heart disease: Atrial fibrillation INR 2.0 to 3.0 Valvular heart disease INR 2.0 to 3.0 Tissue heart valves INR 2.0 to 3.0 Mechanical prosthetic valves INR 2.5 to 3.5 Prevention of recurrent MA INR 2.5 to 3.5 us Latoya Nunez MIRROR FABRICATION SUPERVISOR LAB BLOOD ORDERABLES Final R esult Performing Organization Address [facility] Co de Phone Number [facility] [address] [place] [address] * BIOPSY BONE MARROW (11/10/2024 2:00 PM [...] - 899 pg/mL 11/05/2024 11:49 AM EDT [facility] Blood Venous blood specimen / Unknown Venipuncture / Unknown 11/05/2024 11:01 AM EDT 11/05/2024 11:21 AM EDT us Elsa Razo MIRROR FABRICATION SUPERVISOR LAB BLOOD ORDERABLES Fin al Result Performing Organization Address [facility] Co de Phone Number [facility] [address] [place] [address] * ECG Adult (Now - Performed in your clinic) (11/05/2024 10:10 AM EDT) Only the most recent of2 resultswithin the time period is included. EKG DIAGNOSIS CLASS Normal MUSE ECG Ventricular Rate 71 BPM MUSE ECG Atrial Rate 71 BPM MUSE ECG CA Interval 154 ms MUSE ECG QRSD Interval 80 ms MUSE ECG QT Interval 404 ms MUSE ECG QTC Interval 439 ms MUSE ECG P [place] 45 degrees MUSE ECG R [place] 15 degrees MUSE ECG T Wave [place] 42 degrees MUSE ECG Diagnosis Normal sinus rhythm MUSE ECG Diagnosis Normal ECG MUSE ECG Diagnosis MUSE ECG Diagnosis Confirmed by Orestes Stone ([id number]) on 11/05/2024 10:19:58 AM MUSE ECG 11/05/2024 10:1 0 AM EDT 11/05/2024 10:19 AM EDT us Elsa Razo MIRROR FABRICATION SUPERVISOR ECG ORDERABLES Final Re sult MUSE ECG * Urine Cross Panel (11/03/2024 4:05 PM EDT) Extra Reflex urine culture not indicated 11/04/2024 2:02 AM EDT [facility] Comment: Previously prelim verified as [...] MD LAB URINE ORDERABLES Final R esult [facility] [address] [place] [address] * (ABNORMAL) Urinalysis with reflex microscopic (Culture NOT Included) (11/03/2024 4:05 PM EDT) Color, Urine Yellow LAB URINALYSIS - AUTOMATED METHOD 11/03/2024 4:23 PM EDT [facility] Clarity, Urine Clear LAB URINALYSIS - AUTOMATED METHOD 11/03/2024 4:23 PM EDT [facility] Spec [place], Urine 1.018 1.005 - 1.030 LAB URINALYSIS - AUTOMATED METHOD 11/03/2024 4:23 PM EDT [facility] pH, Urine 6.5 5.0 - 8.0 LAB URINALYSIS - AUTOMATED METHOD 11/03/2024 4:23 PM EDT [facility] Protein, Urine 30(A) Negative mg/dL LAB URINALYSIS - AUTOMATED METHOD 11/03/2024 4:23 PM EDT [facility] Glucose, Urine Negative Negative mg/dL LAB URINALYSIS - AUTOMATED METHOD 11/03/2024 4:23 PM EDT [facility] Ketones, Urine Negative Negative mg/dL LAB URINALYSIS - AUTOMATED METHOD 11/03/2024 4:23 PM EDT [facility] Blood, Urine Negative Negative LAB URINALYSIS - AUTOMATED METHOD 11/03/2024 4:23 PM EDT [facility] Bilirubin, Urine Negative Negative LAB URINALYSIS - AUTOMATED METHOD 11/03/2024 4:23 PM EDT [facility] Urobilinogen, Urine 2.0(A) 0.2 to 1.0 mg/dL LAB URINALYSIS - AUTOMATED METHOD 11/03/2024 4:23 PM EDT [facility] Leukocytes, Urine Negative Negative LAB URINALYSIS - AUTOMATED METHOD 11/03/2024 4:23 PM EDT [facility] Nitrite, Urine Negative Negative LAB URINALYSIS - AUTOMATED METHOD 11/03/2024 4:23 PM EDT [facility] Urine Urine specimen obtained by clean catch procedure / Unknown Non-blood Collection / Unknown 11/03/2024 4:05 PM EDT 11/03/2024 4:17 PM EDT us Tati Fam MD LAB URINE ORDERABLES Final R esult [facility] [address] [place] [address] * CT Head wo IV Contrast (11/03/2024 [...] at day 5 11/08/2024 4:01 PM EDT [facility] Blood Structure of antecubital vein / Unknown Venipuncture / Unknown 11/03/2024 3:24 PM EDT 11/03/2024 3:47 PM EDT Narrative [facility] - 11/08/2024 4:01 PM EDT Low blood volume submitted, results may be compromised us Tati Fam MD LAB MICROBIOLOGY - GENERAL O RDERABLES Final Result [facility] [address] [place] [address] * XR Chest 1 View (11/03/2024 3:00 [...] Cotter MD on 11/03/2024 4:27 PM us Tati Fam MD IMG XR PROCEDURES Final Resu lt * Nasopharyngeal Respiratory Panel (11/03/2024 2:59 PM EDT) Nasopharyngeal Respiratory PCR Interpretation Not Detected for all analytes Not Detected for all analytes 11/03/2024 5:17 PM EDT [facility] Swab Nasopharyngeal structure / Unknown Non-blood Collection / Unknown 11/03/2024 2:59 PM EDT 11/03/2024 3:17 PM EDT Narrative [facility] - 11/03/2024 5:17 PM EDT [...] Respiratory PCR Panel is performed using the Vanksenlex instrument. This test is FDA approved for use with Nasopharyngeal swabs only. This test is used for clinical purposes. It should not be regarded as investigational or for research. The [facility] Clinical Microbiology Laboratory is certified under the Clinical Laboratory Improvement Amendments of 1988 (CLIA-88) as qualified to perform high complexity clinical laboratory testing. us Tati Fam MD LAB MICROBIOLOGY - GENERAL O RDERABLES Final Result Performing Organization Address City/[facility]/ZIP Co de Phone Number [facility] [address] [place] [address] * Lactic acid, venous (11/03/2024 2:25 PM EDT) Lactate, Venous, Whole Blood 0.9 0.5 - 2.2 mmol/L LAB HEMATOLOGY METHOD 11/03/2024 2:38 PM EDT [facility] Blood Venous blood specimen / Unknown Venipuncture / Unknown 11/03/2024 2:25 PM EDT 11/03/2024 2:36 PM EDT us Tati Fam MD LAB BLOOD ORDERABLES Final R esult Performing Organization Address [facility]/ZIP Co de Phone Number [facility] [address] [place] [address] * (ABNORMAL) BASIC METABOLIC PANEL (10/22/2024 3:50 PM EDT) Only the most recent of2 resultswithin the time period is included. Glucose, Plasma 95 74 - 99 mg/dL 10/22/2024 4:38 PM EDT [facility] BUN, Plasma 13 8 - 23 mg/dL 10/22/2024 4:38 PM EDT [facility] Creatinine, Plasma 1.10 0.70 - 1.20 mg/dL 10/22/2024 4:38 PM EDT [facility] BUN/Creatinine Ratio 12 10/22/2024 4:38 PM EDT [facility] Sodium, Plasma 138 136 - 145 mmol/L 10/22/2024 4:38 PM EDT [facility] Potassium, Plasma 4.4 3.6 - 4.9 mmol/L 10/22/2024 4:38 PM EDT [facility] Chloride, Plasma 106 97 - 107 mmol/L 10/22/2024 4:38 PM EDT [facility] CO2, Plasma 21(L) 22 - 29 mmol/L 10/22/2024 4:38 PM EDT [facility] Anion Gap 11 6 - 16 mmol/L 10/22/2024 4:38 PM EDT [facility] Total Calcium, Plasma 9.6 8.9 - 10.2 mg/dL 10/22/2024 4:38 PM EDT [facility] eGFRcr 72.7 mL/min/1.7 3m*2 10/22/2024 4:38 PM EDT [facility] Comment:Reported eGFRcr in m L/min/1.73m2 is based the CKD-EPI 2020 equation that does not use a race coefficient. Blood Venous blood specimen / Unknown Venipuncture / Unknown 10/22/2024 3:50 PM EDT 10/22/2024 4:04 PM EDT us Virgen Vargas MD LAB BLOOD ORDERABLES Final Re sult Performing Organization Address City/[facility]/ZIP Co de Phone Number [facility] [address] [place] [address] * Thyroid Stimulating Hormone, Plasma (10/20/2024 2:48 PM EDT) Thyroid Stimulating Hormone, Plasma 1.02 0.40 - 4.20 uIU/mL 10/20/2024 10:39 PM EDT [facility] Blood Venous blood specimen / Unknown Venipuncture / Unknown 10/20/2024 2:48 PM EDT 10/20/2024 3:05 PM EDT us Kayli CHIU LAB BLOOD ORDERABLES Fin al Result [facility] [address] [place] [address] * Bone marrow exam consult (10/15/2024 1:27 PM EDT) Case Report Bone Marrow Case: [id number] Authorizing Provider: Virgen Vargas MD Collected: 10/15/20247 Ordering Location: [facility] Received: 10/15/2024 1327 Pathologist: Martha Lopez MD Specimen: Bone Marrow Aspirate, [id number] 10/16/2024 2:02 PM EDT [facility] Final Diagnosis A. 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 10/16/2024 2:02 PM EDT [facility] at 1402 EDT Comment Findings are those of MDS with increased blasts type 2 (MDS-IB-2) in the WHO 5th edition and MDS/AML in the International Consensus Classification. 10/16/2024 2:02 PM EDT [facility] Clinical Information R79.9 - Abnormal finding of blood chemistry, unspecified [ICD-10-CM] 10/16/2024 2:02 PM EDT [facility] CBC and Differential PERIPHERAL [...] Granulocytes % 0 10/16/2024 2:02 PM EDT [facility] Bone Marrow Differential BONE MARROW DIFFERENTIAL: 200 cells Normal Patient Neutrophils 15-50 22 Metamyelocytes 4-19 3 Myelocytes 1-18 11 Promyelocytes 1-8 1 Blasts 0-2 13 Monocytes 0-5 4 Erythroid 16-38 41 Lymphocytes 3-24 4 Eosinophils 0-6 1 Basophils 0-2 0 Plasma cells 0-4 0 Other 10/16/2024 2:02 PM EDT [facility] Bone Marrow Aspirate and [...] trabeculae are unremarkable. 10/16/2024 2:02 PM EDT [facility] Flow Cytometry Interpretation Outside flow cytometry showed 17% myeloblasts expressing CD34, CD117, partial CD 38, partial CD7, HLA-DR, CD13 and variable CD33. 10/16/2024 2:02 PM EDT [facility] CYTOGENETICS/MOL ECULAR INTERPRETATION Cytogenetic analysis showed normal male karyotype. No FLT3 duplication or mutation was identified, and no NPM1 mutation was identified. 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 10/16/2024 2:02 PM EDT [facility] Gross Description A. [id number] Received along with a corresponding pathology report from [facility]ology [facility]ology Laboratory are 12 slides labeled outside case: [id number] collected on 09/19/2024. 10/16/2024 2:02 PM EDT [facility] Bone Marrow Specimen from bone marrow obtained by aspiration / Unknown 10/15/2024 1:27 PM EDT 10/15/2024 1:27 PM EDT us Virgen Vargas MD LAB PATHOLOGY ORDERABLES Terri l Result [facility] [address] [place] [address] * Hepatitis C Antibody w/Reflex to HCV Quant PCR (09/29/2024 12:51 PM EDT) Hepatitis C Antibody Negative Negative 09/29/2024 2:06 PM EDT [facility] Blood Venous blood specimen / Unknown Venipuncture / Unknown 09/29/2024 12:51 PM EDT 09/29/2024 1:22 PM EDT us Virgen Vargas MD LAB BLOOD ORDERABLES Final Re sult [facility] [address] [place] [address] from Last 3 Months or Most Recently Relevant to Health Maintenance Insurance [employer] Care Teams Health Services Coordinator Relationship Specialty Start Date End Date Zhao Harris MD [address] [place] [address] PCP - General 12/03/20
--- OUTSIDE RECORDS SUMMARY | 2025-01-09 08:21 | XMS_ITS | Encounter Summary ---
Author Organization [facility] Address [address] [place] [address] Care Team Providers Care 6Th Grade Teacher Name Role Phone Zhao Harris MD Primary Care Provider [phone] Encounter Details Date Type Department Care Team [...] drink first t manav in the morning (EYE-HOUSING LIAISON) to steady your nerves or to get [...] Upcoming Encounters Date Type Department Care Team ([facility] st Contact Info) Description 01/13/2025 9:30 AM EDT Clinical Support [facility] Hematology/BMT and Cellular Therapy Program [address] [phone] 01/13/2025 10:00 AM EDT Office Visit [facility]ology/BMT and Cellular Therapy Program 750 [facility], [address] [place] [phone] Isaura Wynn, INTERIOR DESIGN FACULTY MEMBER 800 [facility] [address] [place] [phone] 01/13/2025 11:30 AM EDT Appointment [facility] [address] [place] [address] 01/14/2025 2:00 PM EDT Appointment [facility] [address] [place] [address] 01/15/2025 2:00 PM EDT Appointment [facility] [address] [place] [address] 01/16/2025 2:00 PM EDT Appointment [facility] [address] [place] [address] 01/17/2025 2:00 PM EDT Appointment [facility] [address] [place] [address] 01/18/2025 2:00 PM EDT Appointment [facility] [address] [place] [address] 01/19/2025 2:00 PM EDT Appointment [facility] [address] [place] [address] 03/10/2025 11:20 AM EDT Office Visit [facility] Head, Neck & Respiratory 800 [facility], [address] [place] [address] Elsa Razo, INTERIOR DESIGN FACULTY MEMBER [address] [place] [address] documented as of this encounter Visit Diagnoses [...] documented as of this encounter Care Teams 6Th Grade Teacher Relationship Specialty Start Date End Date Zhao Harris MD [address] [facility] [address] [place] [address] PCP - General 12/03/20 documented as of this encounter
--- OUTSIDE RECORDS SUMMARY | 2025-01-09 08:22 | XMS_ITS | Encounter Summary ---
Author Organization [facility] Address [address] [place] [address] Care Team Providers Care Case Resolution Specialist Name Role Phone Zhao Harris MD Primary Care Provider [phone] Encounter Details Date Type Department Care Team ([facility] st Contact Info) Description 11/19/2024 Orders Only P[facility] CC Hematology/BMT and Cellular Therapy Program [address] [place] [address] [place] [address] Adam Conway RN [facility] HEMATOLOGY PROGRAM CLINIC Myelodysplasia (myelodysplastic syndrome) (CMS/HCC) [...] drink first t manav in the morning (EYE-NATIONAL VAN OWNER OPERATOR) to steady your nerves or to [...] [facility] Description 01/13/2025 9:30 AM EDT Clinical Support [facility] Hematology/BMT and Cellular Therapy Program [address] [address] 01/13/2025 10:00 AM EDT Office Visit [facility] Hematology/BMT and Cellular Therapy Program [address] [address] Isaura Wynn, REFLECTOR DRILLER AND DEBURRER 800 [facility] [address] [place] [address] 01/13/2025 11:30 AM EDT Appointment [facility] Infusion [address] [place] [address] 01/14/2025 2:00 PM EDT Appointment [facility] [address] [place] [address] 01/15/2025 2:00 PM EDT Appointment [facility] [address] [place] [address] 01/16/2025 2:00 PM EDT Appointment [facility] [address] [place] [address] 01/17/2025 2:00 PM EDT Appointment [facility] [address] [place] [address] 01/18/2025 2:00 PM EDT Appointment [facility] [address] [place] [address] 01/19/2025 2:00 PM EDT Appointment [facility]fusion [address] [place] [address] 03/10/2025 11:20 AM EDT Office Visit Pav CC Head, Neck & Respiratory 800 [facility], 2nd [place] [phone] Elsa Razo, REFLECTOR DRILLER AND DEBURRER [address] [place] [phone] Scheduled Orders Name Type Priority Associated Diagnoses [...] - 99 mg/dL 12/18/2024 9:51 AM EDT [facility] BUN, Plasma 10 8 - 23 mg/dL 12/18/2024 9:51 AM EDT [facility] Creatinine, Plasma 0.80 0.70 - 1.20 mg/dL 12/18/2024 9:51 AM EDT [facility] BUN/Creatinine Ratio 13 12/18/2024 9:51 AM EDT [facility] Sodium, Plasma 139 136 - 145 mmol/L 12/18/2024 9:51 AM EDT [facility] Potassium, Plasma 4.4 3.6 - 4.9 mmol/L 12/18/2024 9:51 AM EDT [facility] Chloride, Plasma 108(H) 97 - 107 mmol/L 12/18/2024 9:51 AM EDT [facility] CO2, Plasma 22 22 - 29 mmol/L 12/18/2024 9:51 AM EDT [facility] Anion Gap 9 6 - 16 mmol/L 12/18/2024 9:51 AM EDT [facility] Total Calcium, Plasma 8.8(L) 8.9 - 10.2 mg/dL 12/18/2024 9:51 AM EDT [facility] Total Protein 6.8 6.3 - 7.9 g/dL 12/18/2024 9:51 AM EDT [facility] Albumin, Plasma 3.9 3.5 - 5.2 g/dL 12/18/2024 9:51 AM EDT [facility] AST, Plasma 16 10 - 50 U/L 12/18/2024 9:51 AM EDT [facility] ALT, Plasma 16 10 - 50 U/L 12/18/2024 9:51 AM EDT [facility] Alkaline Phosphatase, Plasma 83 40 - 115 U/L 12/18/2024 9:51 AM EDT [facility] Total Bilirubin, Plasma 0.6 0.2 - 1.1 mg/dL 12/18/2024 9:51 AM EDT [facility] eGFRcr 95.8 mL/min/1.7 3m*2 12/18/2024 9:51 AM EDT [facility] Comment:Reported eGFRcr in m L/min/1.73m2 is based the CKD-EPI 2020 equation that does not use a race coefficient. Blood Blood sample taken from central line / Unknown Venipuncture / Unknown 12/18/2024 9:14 AM EDT 12/18/2024 9:20 AM EDT us Virgen Vargas MD LAB BLOOD ORDERABLES Final Re sult [facility] [address] [place] [address] * (ABNORMAL) CBC and Differential (11/24/2024 2:07 PM EDT) WBC Count 0.76(LL) 3.70 - 10.30 10*3/uL LAB HEMATOLOGY METHOD 11/24/2024 2:44 PM EDT [facility] RBC Count 2.37(L) 4.60 - 6.10 10*6/uL LAB HEMATOLOGY METHOD 11/24/2024 2:44 PM EDT [facility] HGB 8.0(L) 13.7 - 17.5 g/dL LAB HEMATOLOGY METHOD 11/24/2024 2:44 PM EDT [facility] HCT 22.3(L) 40.0 - 51.0 % LAB HEMATOLOGY METHOD 11/24/2024 2:44 PM EDT [facility] Platelet Count 12(LL) 155 - 369 10*3/uL LAB HEMATOLOGY METHOD 11/24/2024 2:44 PM EDT [facility] MCV 94 79 - 98 fL LAB HEMATOLOGY METHOD 11/24/2024 2:44 PM EDT [facility] MCH 33.8(H) 26.0 - 32.0 pg LAB HEMATOLOGY METHOD 11/24/2024 2:44 PM EDT [facility] MCHC 35.9(H) 30.7 - 35.5 g/dL LAB HEMATOLOGY METHOD 11/24/2024 2:44 PM EDT [facility] RDW 18.8(H) 11.5 - 14.5 % LAB HEMATOLOGY METHOD 11/24/2024 2:44 PM EDT [facility] MPV LAB HEMATOLOGY METHOD 11/24/2024 2:44 PM EDT [facility] Comment:Not Measured nRBC 0.0 <=0.0 per 100 WBCs LAB HEMATOLOGY METHOD 11/24/2024 2:44 PM EDT [facility] Differential Type Automated LAB HEMATOLOGY METHOD 11/24/2024 2:44 PM EDT [facility] Neutrophils % 16 % LAB HEMATOLOGY METHOD 11/24/2024 2:44 PM EDT [facility] Lymphocytes % 79 % LAB HEMATOLOGY METHOD 11/24/2024 2:44 PM EDT [facility] Monocytes % 4 % LAB HEMATOLOGY METHOD 11/24/2024 2:44 PM EDT [facility] Eosinophils % 1 % LAB HEMATOLOGY METHOD 11/24/2024 2:44 PM EDT [facility] Basophils % 0 % LAB HEMATOLOGY METHOD 11/24/2024 2:44 PM EDT [facility] Immature Granulocytes % 0 % LAB HEMATOLOGY METHOD 11/24/2024 2:44 PM EDT [facility] Neutrophils Absolute 0.12(LL) 1.60 - 6.10 10*3/uL LAB HEMATOLOGY METHOD 11/24/2024 2:44 PM EDT [facility] Lymphocytes Absolute 0.60(L) 1.20 - 3.90 10*3/uL LAB HEMATOLOGY METHOD 11/24/2024 2:44 PM EDT [facility] Monocytes Absolute 0.03(L) 0.30 - 0.90 10*3/uL LAB HEMATOLOGY METHOD 11/24/2024 2:44 PM EDT [facility] Eosinophils Absolute 0.01 0.00 - 0.50 10*3/uL LAB HEMATOLOGY METHOD 11/24/2024 2:44 PM EDT [facility] Basophils Absolute 0.00 0.00 - 0.10 10*3/uL LAB HEMATOLOGY METHOD 11/24/2024 2:44 PM EDT [facility] Immature Granulocytes Absolute 0.00 0.00 - 0.06 10*3/uL LAB HEMATOLOGY METHOD 11/24/2024 2:44 PM EDT [facility] Blood Venous blood specimen / Unknown Venipuncture / Unknown 11/24/2024 2:07 PM EDT 11/24/2024 2:13 PM EDT [facility] - 11/24/2024 2:44 PM EDT Therapeutic decision making should be based on absolute values, rather than percentages. us Virgen Vargas MD LAB BLOOD ORDERABLES Final Re sult [facility] [address] [place] [address] * Comprehensive Metabolic Panel, Plasma (11/24/2024 2:07 PM EDT) Glucose, Plasma 97 74 - 99 mg/dL 11/24/2024 3:44 PM EDT [facility] BUN, Plasma 13 8 - 23 mg/dL 11/24/2024 3:44 PM EDT [facility] Creatinine, Plasma 0.97 0.70 - 1.20 mg/dL 11/24/2024 3:44 PM EDT [facility] BUN/Creatinine Ratio 13 11/24/2024 3:44 PM EDT [facility] Sodium, Plasma 138 136 - 145 mmol/L 11/24/2024 3:44 PM EDT [facility] Potassium, Plasma 3.7 3.6 - 4.9 mmol/L 11/24/2024 3:44 PM EDT [facility] Chloride, Plasma 107 97 - 107 mmol/L 11/24/2024 3:44 PM EDT [facility] CO2, Plasma 22 22 - 29 mmol/L 11/24/2024 3:44 PM EDT [facility] Anion Gap 9 6 - 16 mmol/L 11/24/2024 3:44 PM EDT [facility] Total Calcium, Plasma 9.5 8.9 - 10.2 mg/dL 11/24/2024 3:44 PM EDT [facility] Total Protein 6.7 6.3 - 7.9 g/dL 11/24/2024 3:44 PM EDT [facility] Albumin, Plasma 3.8 3.5 - 5.2 g/dL 11/24/2024 3:44 PM EDT [facility] AST, Plasma 18 10 - 50 U/L 11/24/2024 3:44 PM EDT [facility] ALT, Plasma 20 10 - 50 U/L 11/24/2024 3:44 PM EDT [facility] Alkaline Phosphatase, Plasma 71 40 - 115 U/L 11/24/2024 3:44 PM EDT [facility] Total Bilirubin, Plasma 0.7 0.2 - 1.1 mg/dL 11/24/2024 3:44 PM EDT [facility] eGFRcr 84.5 mL/min/1.7 3m*2 11/24/2024 3:44 PM EDT [facility] Comment:Reported eGFRcr in m L/min/1.73m2 is based the CKD-EPI 2020 equation that does not use a race coefficient. Blood Venous blood specimen / Unknown Venipuncture / Unknown 11/24/2024 2:07 PM EDT 11/24/2024 2:44 PM EDT us Virgen Vargas MD LAB BLOOD ORDERABLES Final Re sult [facility] [address] [place] [address] * (ABNORMAL) Comprehensive Metabolic Panel, Plasma (11/20/2024 1:49 PM EDT) Glucose, Plasma 100(H) 74 - 99 mg/dL 11/20/2024 2:45 PM EDT [facility] BUN, Plasma 11 8 - 23 mg/dL 11/20/2024 2:45 PM EDT [facility] Creatinine, Plasma 1.01 0.70 - 1.20 mg/dL 11/20/2024 2:45 PM EDT [facility] BUN/Creatinine Ratio 11 11/20/2024 2:45 PM EDT [facility] Sodium, Plasma 135(L) 136 - 145 mmol/L 11/20/2024 2:45 PM EDT [facility] Potassium, Plasma 4.1 3.6 - 4.9 mmol/L 11/20/2024 2:45 PM EDT [facility] Chloride, Plasma 106 97 - 107 mmol/L 11/20/2024 2:45 PM EDT [facility] CO2, Plasma 21(L) 22 - 29 mmol/L 11/20/2024 2:45 PM EDT [facility] Anion Gap 8 6 - 16 mmol/L 11/20/2024 2:45 PM EDT [facility] Total Calcium, Plasma 9.1 8.9 - 10.2 mg/dL 11/20/2024 2:45 PM EDT [facility] Total Protein 6.7 6.3 - 7.9 g/dL 11/20/2024 2:45 PM EDT [facility] Albumin, Plasma 3.9 3.5 - 5.2 g/dL 11/20/2024 2:45 PM EDT [facility] AST, Plasma 26 10 - 50 U/L 11/20/2024 2:45 PM EDT [facility] ALT, Plasma 43 10 - 50 U/L 11/20/2024 2:45 PM EDT [facility] Alkaline Phosphatase, Plasma 71 40 - 115 U/L 11/20/2024 2:45 PM EDT [facility] Total Bilirubin, Plasma 0.7 0.2 - 1.1 mg/dL 11/20/2024 2:45 PM EDT [facility] eGFRcr 80.5 mL/min/1.7 3m*2 11/20/2024 2:45 PM EDT [facility] Comment:Reported eGFRcr in m L/min/1.73m2 is based the CKD-EPI 2020 equation that does not use a race coefficient. Blood Venous blood specimen / Unknown Venipuncture / Unknown 11/20/2024 1:49 PM EDT 11/20/2024 2:13 PM EDT us Virgen Vargas MD LAB BLOOD ORDERABLES Final Re sult [facility] [address] [place] [address] documented in this encounter Visit Diagnoses Diagnosis [...] documented as of this encounter Care Teams Case Resolution Specialist Relationship Specialty Start Date End Date Zhao Harris MD [address] [place] [address] PCP - General 12/03/20 documented as of this encounter
--- OUTSIDE RECORDS SUMMARY | 2025-01-09 08:22 | XMS_ITS | Encounter Summary ---
Author Organization [facility] Address [address] [place] [address] Care Team Providers Care Water Manager Name Role Phone Zhao Harris MD Primary Care Provider [phone] Encounter Details Date Type Department Care Team [...] drink first t manav in the morning (EYE-AMBULANCE PARAMEDIC) to steady your nerves or to [...] Upcoming Encounters Date Type Department Care Team ([facility] st Contact Info) Description 01/13/2025 9:30 AM EDT Clinical Support [facility] Hematology/BMT and Cellular Therapy Program [address] [address] 01/13/2025 10:00 AM EDT Office Visit P[facility] CC Hematology/BMT and Cellular Therapy Program 750 [facility], [address] [place] [phone] Isaura Wynn, RN PATIENT CARE 800 [facility] [address] [place] [phone] 01/13/2025 11:30 AM EDT Appointment [facility] H Infusion [address] [place] [address] 01/14/2025 2:00 PM EDT Appointment [facility] [address] [place] [address] 01/15/2025 2:00 PM EDT Appointment [facility] [address] [place] [address] 01/16/2025 2:00 PM EDT Appointment [facility] [address] [place] [address] 01/17/2025 2:00 PM EDT Appointment [facility] [address] [place] [address] 01/18/2025 2:00 PM EDT Appointment [facility] [address] [place] [address] 01/19/2025 2:00 PM EDT Appointment [facility] [address] [place] [address] 03/10/2025 11:20 AM EDT Office Visit Pav CC Head, Neck & Respiratory 800 [facility], [address]nd [place] [address] Elsa Razo, RN PATIENT CARE [address] [place] [address] documented as of this encounter Visit Diagnoses [...] as of this encounter Care Teams Water Manager Relationship Specialty Start Date End Date Zhao Harris MD [address] [facility] [address] [place] [address] PCP - General 12/03/20 documented as of this encounter
--- OUTSIDE RECORDS SUMMARY | 2025-01-09 08:22 | XMS_ITS | Encounter Summary ---
Author Organization [facility] Address [address] [place] [address] Care Team Providers Care Senior Reliability Engineer Name Role Phone Zhao Harris MD Primary Care Provider [phone] Encounter Details Date Type Department Care Team ([facility] st Contact Info) Description 11/18/2024 Telephone [facility] CC Hematology/BMT and Cellular Therapy Program [address] [place] [address] [place] [address] Brittny Mahoney, RN [facility] Social History Tobacco Use [...] drink first t manav in the morning (EYE-NEIGHBORHOOD SERVICE CENTER DIRECTOR) to steady your nerves or [...] ([facility] Contact Info) Description 01/13/2025 9:30 AM EDT Clinical Support [facility] CC Hematology/BMT and Cellular Therapy Program [address] [address] 01/13/2025 10:00 AM EDT Office Visit [facility] CC Hematology/BMT and Cellular Therapy Program [address] [phone] Isaura Wynn, TIN PLATER 800 [facility] [address] [place] [phone] 01/13/2025 11:30 AM EDT Appointment [facility] [address] [place] [address] 01/14/2025 2:00 PM EDT Appointment [facility] [address] [place] [address] 01/15/2025 2:00 PM EDT Appointment [facility] [address] [place] [address] 01/16/2025 2:00 PM EDT Appointment [facility] [address] [place] [address] 01/17/2025 2:00 PM EDT Appointment [facility] [address] [place] [address] 01/18/2025 2:00 PM EDT Appointment [facility] [address] [place] [address] 01/19/2025 2:00 PM EDT Appointment [facility] [address] [place] [address] 03/10/2025 11:20 AM EDT Office Visit Pav CC Head, Neck & Respiratory 800 [facility], 2nd [place] [address] Elsa Razo, TIN PLATER [address] [place] [address] documented as of this encounter Visit Diagnoses [...] as of this encounter Care Teams Senior Reliability Engineer Relationship Specialty Start Date End Date Zhao Harris MD [address] [place] [id number] PCP - General 12/03/20 documented as of this encounter
--- OUTSIDE RECORDS SUMMARY | 2025-01-09 08:22 | XMS_ITS | Encounter Summary ---
Author Organization [facility] Address [address] [place] [address] Care Team Providers Care Machine Rough Rounder Name Role Phone Zhao Harris MD Primary Care Provider [phone] Encounter Details Date Type Department Care Team [...] t manav in the morning (EYE-DIRECTOR OF PROMOTIONS) to steady your nerves or to get [...] ([facility] st Contact Info) Description 01/13/2025 9:30 AM EDT Clinical Support [facility] CC Hematology/BMT and Cellular Therapy Program [address] [address] 01/13/2025 10:00 AM EDT Office Visit P[facility] CC Hematology/BMT and Cellular Therapy Program 750 [facility], [address] [place] [phone] Isaura Wynn, DELINQUENCY COUNSELOR 800 [facility] [address] [place] [phone] 01/13/2025 11:30 AM EDT Appointment [facility] 800 [place] [address] 01/14/2025 2:00 PM EDT Appointment [facility] 800 [place] [address] 01/15/2025 2:00 PM EDT Appointment [facility] 800 [place] [address] 01/16/2025 2:00 PM EDT Appointment [facility] 800 [place] [address] 01/17/2025 2:00 PM EDT Appointment [facility] [address] [place] [address] 01/18/2025 2:00 PM EDT Appointment [facility] 800 [place] [address] 01/19/2025 2:00 PM EDT Appointment [facility] 800 [place] [address] 03/10/2025 11:20 AM EDT Office Visit Pav CC Head, Neck & Respiratory 800 [facility], 2nd [place] [address] Elsa Razo, DELINQUENCY COUNSELOR 800 [place] [address] documented as of this encounter Visit Diagnoses [...] as of this encounter Care Teams Machine Rough Rounder Relationship Specialty Start Date End Date Zhao Harris MD [address] [facility] [address] [place] [address] PCP - General 12/03/20 documented as of this encounter
--- OUTSIDE RECORDS SUMMARY | 2025-01-09 08:22 | XMS_ITS | Encounter Summary ---
Author Organization [facility] Address [address] [place] [address] Care Team Providers Care Senior Research Manager Name Role Phone Zhao Harris MD Primary Care Provider [phone] Encounter Details Date Type Department Care Team ([facility] st Contact Info) Description 11/18/2024 Telephone P[facility] CC Hematology/BMT and Cellular Therapy Program [address] [place] [address] [place] [address] Gricel Gonzalez RN [facility] HEMATOLOGY [facility] CLINIC Social History Tobacco [...] drink first t manav in the morning (EYE-PETROLEUM ENGINEER) to steady your nerves or to [...] [facility] Contact Info) Description 01/13/2025 9:30 AM EDT Clinical Support [facility] Hematology/BMT and Cellular Therapy Program [address] [address] 01/13/2025 10:00 AM EDT Office Visit [facility] CC Hematology/BMT and Cellular Therapy Program [address] [phone] Isaura Wynn, ESTRELLA 800 [facility] [address] [place] [phone] 01/13/2025 11:30 AM EDT Appointment [facility] 800 [place] [address] 01/14/2025 2:00 PM EDT Appointment [facility] [address] [place] [address] 01/15/2025 2:00 PM EDT Appointment [facility] [address] [place] [address] 01/16/2025 2:00 PM EDT Appointment [facility] [address] [place] [address] 01/17/2025 2:00 PM EDT Appointment [facility] [address] [place] [address] 01/18/2025 2:00 PM EDT Appointment [facility] [address] [place] [address] 01/19/2025 2:00 PM EDT Appointment [facility] [address] [place] [address] 03/10/2025 11:20 AM EDT Office Visit Pav CC Head, Neck & Respiratory 800 [facility], 2nd [place] [address] Elsa Razo, FINANCIAL ADMINISTRATION OFFICER 800 [place] [address] documented as of this encounter Visit Diagnoses [...] as of this encounter Care Teams Senior Research Manager Relationship Specialty Start Date End Date Zhao Harris MD [facility] [address] [phone] PCP - General 12/03/20 documented as of this encounter
--- OUTSIDE RECORDS SUMMARY | 2025-01-09 08:22 | XMS_ITS | Encounter Summary ---
Author Organization [facility] Address [address] [place] [address] Care Team Providers Care Validation Manager Name Role Phone Zhao Harris MD Primary Care Provider [phone] Encounter Details Date Type Department Care Team (Latest Contact Info) Description 01/05/2025 Travel Social History Tobacco Use Types Packs/Day [...] first t manav in the morning (EYE-PHYSICIAN RELATIONS REPRESENTATIVE) to steady your nerves or to [...] Hematology/BMT and Cellular Therapy Program [address] [address] 01/13/2025 10:00 AM EDT Office Visit [facility] CC Hematology/BMT and Cellular Therapy Program [address] [phone] Isaura Wynn, BARIATRIC NURSE 800 [facility] [address] [place] [phone] 01/13/2025 11:30 AM EDT Appointment [facility] 800 [place] [address] 01/14/2025 2:00 PM EDT Appointment [facility] [address] [place] [address] 01/15/2025 2:00 PM EDT Appointment [facility] [address] [place] [address] 01/16/2025 2:00 PM EDT Appointment [facility] [address] [place] [address] 01/17/2025 2:00 PM EDT Appointment [facility] [address] [place] [address] 01/18/2025 2:00 PM EDT Appointment [facility] [address] [place] [address] 01/19/2025 2:00 PM EDT Appointment [facility] [address] [place] [address] 03/10/2025 11:20 AM EDT Office Visit Pav CC Head, Neck & Respiratory 800 [facility], 2nd [place] [address] Elsa Razo, BARIATRIC NURSE 800 [place] [address] documented as of this encounter Visit Diagnoses [...] documented as of this encounter Care Teams Validation Manager Relationship Specialty Start Date End Date Zhao Harris MD [address] [facility] [address] [place] [id number] PCP - General 12/03/20 documented as of this encounter
--- OUTSIDE RECORDS SUMMARY | 2025-01-09 08:23 | XMS_ITS | Encounter Summary ---
Author Organization [facility] Address [address] [place] [address] Care Team Providers Care Commercial Lines Underwriter Name Role Phone Zhao Harris MD Primary Care Provider [phone] Encounter Details Date Type Department Care Team [...] drink first t manav in the morning (EYE-VACUUM PAN OPERATOR) to steady your nerves or to [...] Hematology/BMT and Cellular Therapy Program [address] [address] 01/13/2025 10:00 AM EDT Office Visit P[facility] CC Hematology/BMT and Cellular Therapy Program 750 [facility], [address] [place] [phone] Isaura Wynn, SALAD MAKER 800 [facility] [address] [place] [phone] 01/13/2025 11:30 AM EDT Appointment [facility] 800 [place] [address] 01/14/2025 2:00 PM EDT Appointment [facility] 800 [place] [address] 01/15/2025 2:00 PM EDT Appointment [facility] 800 [place] [address] 01/16/2025 2:00 PM EDT Appointment [facility] 800 [place] [address] 01/17/2025 2:00 PM EDT Appointment [facility] 800 [place] [address] 01/18/2025 2:00 PM EDT Appointment [facility] 800 [place] [address] 01/19/2025 2:00 PM EDT Appointment [facility] 800 [place] [address] 03/10/2025 11:20 AM EDT Office Visit Pav CC Head, Neck & Respiratory 800 [facility], [address]nd [place] [address] Elsa Razo, SALAD MAKER 800 [place] [address] documented as of this encounter Visit Diagnoses [...] of this encounter Care Teams Commercial Lines Underwriter Relationship Specialty Start Date End Date Zhao Harris MD [address] [facility] [address] [place] [address] PCP - General 12/03/20 documented as of this encounter
--- OUTSIDE RECORDS SUMMARY | 2025-01-09 08:24 | XMS_ITS | Encounter Summary ---
Author Organization [facility] Address [address] [place] [address] Care Team Providers Care Roller Helper Name Role Phone Zhao Harris MD Primary Care Provider [phone] Reason for Visit * Reason Onset Date Comments Distress Screen Follow-up 11/25/2024 Encounter Details Date Type Department Care Team (Late st Contact Info) Description 11/25/2024 Telephone [facility] Hematology/BMT and Cellular Therapy Program [address] [place] [address] [place] [address] Michelle Mast Distress Screen Follow-up Social History [...] t manav in the morning (EYE-DIRECTOR OF INTERCOLLEGIATE ATHLETICS) to steady your nerves or to get [...] Upcoming Encounters Date Type Department Care Team ([facility] st Contact Info) Description 01/13/2025 9:30 AM EDT Clinical Support [facility] Hematology/BMT and Cellular Therapy Program [address] [place] [address] 01/13/2025 10:00 AM EDT Office Visit [facility] Hematology/BMT and Cellular Therapy Program [address] [place] [phone] Isaura Wynn, REGISTERED HEALTH NURSE 800 [facility] [address] [place] [address] 01/13/2025 11:30 AM EDT Appointment [facility] Infusion 800 [place] [address] 01/14/2025 2:00 PM EDT Appointment [facility] 800 [place] [address] 01/15/2025 2:00 PM EDT Appointment [facility] 800 [place] [phone]97 01/16/2025 2:00 PM EDT Appointment [facility] 800 [place] [address] 01/17/2025 2:00 PM EDT Appointment [facility] 800 [place] [address] 01/18/2025 2:00 PM EDT Appointment [facility] 800 [place] [address] 01/19/2025 2:00 PM EDT Appointment [facility]fusion 800 [place] [address] 03/10/2025 11:20 AM EDT Office Visit [facility] Head, Neck & Respiratory 800 [facility], 2nd [place] [address] Elsa Razo, REGISTERED HEALTH NURSE 800 [place] [address] documented as of this encounter Visit Diagnoses [...] documented as of this encounter Care Teams Roller Helper Relationship Specialty Start Date End Date Zhao Harris MD [address] [place] [address] PCP - General 12/03/20 documented as of this encounter
--- OUTSIDE RECORDS SUMMARY | 2025-01-09 08:24 | XMS_ITS | Encounter Summary ---
Author Organization [facility] Address [address] [place] [address] Care Team Providers Care Janitorial Cleaner Name Role Phone Zhao Harris MD Primary Care Provider [phone] Encounter Details Date Type Department Care Team [...] drink first t manav in the morning (EYE-TERRITORY ACCOUNT MANAGER) to steady your nerves or to [...] ([facility] st Contact Info) Description 01/13/2025 9:30 AM EDT Clinical Support [facility] Hematology/BMT and Cellular Therapy Program [address] [address] 01/13/2025 10:00 AM EDT Office Visit [facility] Hematology/BMT and Cellular Therapy Program 750 [facility], [address] [place] [phone] Isaura Wynn, SOIL CONSERVATION TEACHER 800 [facility] [address] [place] [phone] 01/13/2025 11:30 AM EDT Appointment [facility] Infusion 800 [place] [address] 01/14/2025 2:00 PM EDT Appointment [facility]fusion [address] [place] [address] 01/15/2025 2:00 PM EDT Appointment [facility]fusion 800 [place] [address] 01/16/2025 2:00 PM EDT Appointment [facility]fusion 800 [place] [address] 01/17/2025 2:00 PM EDT Appointment [facility] Infusion 800 [place] [address] 01/18/2025 2:00 PM EDT Appointment [facility] Infusion 800 [place] [address] 01/19/2025 2:00 PM EDT Appointment [facility] Infusion 800 [place] [address] 03/10/2025 11:20 AM EDT Office Visit Pav CC Head, Neck & Respiratory 800 [facility], 2nd [place] [address] Elsa Razo, SOIL CONSERVATION TEACHER 800 [place] [address] documented as of this encounter Visit Diagnoses [...] documented as of this encounter Care Teams Janitorial Cleaner Relationship Specialty Start Date End Date Zhao Harris MD [address] [facility] [address] [place] [address] PCP - General 12/03/20 documented as of this encounter
--- OUTSIDE RECORDS SUMMARY | 2025-01-09 08:24 | XMS_ITS | Encounter Summary ---
Author Organization [facility] Address [address] [place] [address] Care Team Providers Care Shelter Supervisor Name Role Phone Zhao Harris MD Primary Care Provider [phone] Reason for Visit * Reason Comments Med Refill Encounter Details Date Type Department Care Team ([facility] Contact Info) Description 02/20/2022 Refill [facility] [place] [address] [facility], [address] [place] [address] Regina Hill, [place] 800 [place] [address] Social History Tobacco Use Types [...] Upcoming Encounters Date Type Department Care Team ([facility] Contact Info) Description 01/13/2025 9:30 AM EDT Clinical Support [facility] Hematology/BMT and Cellular Therapy Program [address] [address] 01/13/2025 10:00 AM EDT Office Visit [facility] Hematology/BMT and Cellular Therapy Program [address] [phone] Isaura Wynn, CARE CLINICIAN [address] [facility] [address] [place] [address] 01/13/2025 11:30 AM EDT Appointment [facility] Infusion 800 [place] [address] 01/14/2025 2:00 PM EDT Appointment [facility]fusion 800 [place] [address] 01/15/2025 2:00 PM EDT Appointment [facility]fusion 800 [place] [address] 01/16/2025 2:00 PM EDT Appointment [facility]fusion 800 [place] [address] 01/17/2025 2:00 PM EDT Appointment [facility]fusion 800 [place] [address] 01/18/2025 2:00 PM EDT Appointment [facility] 800 [place] [address] 01/19/2025 2:00 PM EDT Appointment [facility] Infusion 800 [place] [address] 03/10/2025 11:20 AM EDT Office Visit Pav CC Head, Neck & Respiratory 800 [facility], 2nd [place] [address] Elsa Razo, CARE CLINICIAN 800 [place] [address] documented as of this encounter Visit Diagnoses Not on filedocumented in this encounter Additional Health Concerns Infection Onset Date Last Indicated Resolved Time Respiratory Rule-Out 11/03/2024 11/03/2024 025 5:17 PM EDT documented as of this encounter Care Teams Shelter Supervisor Relationship Specialty Start Date End Date Zhao Harris MD [address] [facility] [address] [place], [place] [phone] PCP - General 12/03/20 documented as of this encounter
--- OUTSIDE RECORDS SUMMARY | 2025-01-09 08:24 | XMS_ITS | Encounter Summary ---
Author Organization [facility] Address [address] [place] [address] Care Team Providers Care Boiler Operators Supervisor Name Role Phone Zhao Harris MD Primary Care Provider [phone] Reason for Visit * Reason Comments Med Refill Encounter Details Date Type Department Care Team (Late st Contact Info) Description 09/22/2021 Refill [facility] [place] [address] [facility], [address] [place] [address] Regina Hill, ARAM 800 [place] [address] Coronary artery disease involving [place] heart with angina pectoris, unspecified vessel or [...] Hematology/BMT and Cellular Therapy Program [address] [place] [phone] 01/13/2025 10:00 AM EDT Office Visit [facility] Hematology/BMT and Cellular Therapy Program [address] [phone] Isaura Wynn, PROGRAMMER DEVELOPER 800 [facility] [address]st [place] [phone] 01/13/2025 11:30 AM EDT Appointment [facility]fusion 800 [place] [address] 01/14/2025 2:00 PM EDT Appointment [facility] 800 [place] [address] 01/15/2025 2:00 PM EDT Appointment [facility] 800 [place] [address] 01/16/2025 2:00 PM EDT Appointment [facility]fusion 800 [place] [address] 01/17/2025 2:00 PM EDT Appointment [facility] 800 [place] [address] 01/18/2025 2:00 PM EDT Appointment [facility] 800 [place] [address] 01/19/2025 2:00 PM EDT Appointment [facility]fusion 800 [place] [address] 03/10/2025 11:20 AM EDT Office Visit [facility] Head, Neck & Respiratory 800 [facility], 2nd [place] [address] Elsa Razo, PROGRAMMER DEVELOPER 800 [place] [phone] documented as of this encounter Visit Diagnoses Diagnosis Coronary artery disease involving [place] heart with angina pectoris, unspecified vessel or lesion type (CMS/HCC) documented in this encounter Additional Health Concerns Infection Onset Date Last Indicated Resolved Time Respiratory Rule-Out 11/03/2024 11/03/2024 025 5:17 PM EDT documented as of this encounter Care Teams Boiler Operators Supervisor Relationship Specialty Start Date End Date Zhao Harris MD 1210 [facility] [address] [place], [place] [id number] PCP - General 12/03/20 documented as of this encounter
--- OUTSIDE RECORDS SUMMARY | 2025-01-09 08:24 | XMS_ITS | Encounter Summary ---
Author Organization [facility] Address [address] [place] [address] Care Team Providers Care Inspector Grain Mill Products Name Role Phone Zhao Harris MD Primary Care Provider [phone] Encounter Details Date Type Department Care Team [...] first t manav in the morning (EYE-CLOTH BOOKER) to steady your nerves or to get [...] Of [place] st Contact Info) Description 01/13/2025 9:30 AM EDT Clinical Support [facility] Hematology/BMT and Cellular Therapy Program [address] [address] 01/13/2025 10:00 AM EDT Office Visit [facility] Hematology/BMT and Cellular Therapy Program 750 [facility], [address] [place] [phone] Isaura Wynn, CLERICAL MANAGER 800 [facility] [address] [place] [phone] 01/13/2025 11:30 AM EDT Appointment [facility] Infusion 800 [place] [address] 01/14/2025 2:00 PM EDT Appointment [facility] Infusion 800 [place] [address] 01/15/2025 2:00 PM EDT Appointment [facility] Infusion 800 [place] [address] 01/16/2025 2:00 PM EDT Appointment [facility] Infusion 800 [place] [address] 01/17/2025 2:00 PM EDT Appointment [facility] Infusion 800 [place] [address] 01/18/2025 2:00 PM EDT Appointment [facility] Infusion 800 [place] [address] 01/19/2025 2:00 PM EDT Appointment [facility] Infusion 800 [place] [address] 03/10/2025 11:20 AM EDT Office Visit [facility] CC Head, Neck & Respiratory [address] [facility], 2nd [place] [address] Elsa Razo, CLERICAL MANAGER 800 [place] [address] documented as of this encounter Visit Diagnoses [...] documented as of this encounter Care Teams Inspector Grain Mill Products Relationship Specialty Start Date End Date Zhao Harris MD [address] [facility] [address] [place] [address] PCP - General 12/03/20 documented as of this encounter
--- OUTSIDE RECORDS SUMMARY | 2025-01-09 08:24 | XMS_ITS | Encounter Summary ---
Author Organization [facility] Address [address] [place] [address] Care Team Providers Care Woven Wood Shade Assembler Name Role Phone Zhao Harris MD Primary Care Provider [phone] Encounter Details Date Type Department Care Team [...] first t manav in the morning (EYE-PRODUCTION CREW SUPERVISOR) to steady your nerves or to [...] Hematology/BMT and Cellular Therapy Program [address] [address] 01/13/2025 10:00 AM EDT Office Visit [facility] CC Hematology/BMT and Cellular Therapy Program [address] [address] Isaura Wynn, HEALTH AND WELLNESS COACH 800 [facility] [address] [place] [phone] 01/13/2025 11:30 AM EDT Appointment [facility] Infusion 800 [place] [address] 01/14/2025 2:00 PM EDT Appointment [facility] Infusion 800 [place] [address] 01/15/2025 2:00 PM EDT Appointment [facility] Infusion 800 [place] [address] 01/16/2025 2:00 PM EDT Appointment [facility] Infusion 800 [place] [address] 01/17/2025 2:00 PM EDT Appointment [facility] Infusion 800 [place] [address] 01/18/2025 2:00 PM EDT Appointment [facility] Infusion 800 [place] [address] 01/19/2025 2:00 PM EDT Appointment [facility] Infusion 800 [place] [address] 03/10/2025 11:20 AM EDT Office Visit Pav CC Head, Neck & Respiratory 800 [facility], 2nd [place] [address] Elsa Razo, HEALTH AND WELLNESS COACH 800 [place] [address] documented as of this encounter Visit Diagnoses [...] documented as of this encounter Care Teams Woven Wood Shade Assembler Relationship Specialty Start Date End Date Zhao Harris MD [address] [place] [facility] [address] [place] [phone] PCP - General 12/03/20 documented as of this encounter
--- OUTSIDE RECORDS SUMMARY | 2025-01-09 08:24 | XMS_ITS | Encounter Summary ---
Author Organization [facility] Address [address] [place] [address] Care Team Providers Care Vp Of Marketing Name Role Phone Zhao Harris MD Primary Care Provider [phone] Encounter Details Date Type Department Care Team (Late Contact Info) Description 10/15/2024 Lab Requisition [facility] H Lab 800 [place] [address] Virgen Vargas MD 800 [facility] [address] [place] [phone] Abnormal finding of blood chemistry, unspecified Social [...] Hematology/BMT and Cellular Therapy Program [address] [place] [address] 01/13/2025 10:00 AM EDT Office Visit [facility] CC Hematology/BMT and Cellular Therapy Program 750 [facility], [address] [place] [address] Isaura Wynn, ELECTRONICS SCALE TESTER 800 [facility] [address] [place] [phone] 01/13/2025 11:30 AM EDT Appointment [facility] Infusion 800 [place] [address] 01/14/2025 2:00 PM EDT Appointment [facility] Infusion 800 [place] [address] 01/15/2025 2:00 PM EDT Appointment [facility] Infusion 800 [place] [address] 01/16/2025 2:00 PM EDT Appointment [facility] Infusion 800 [place] [address] 01/17/2025 2:00 PM EDT Appointment [facility] Infusion 800 [place] [address] 01/18/2025 2:00 PM EDT Appointment [facility] Infusion 800 [place] [address] 01/19/2025 2:00 PM EDT Appointment [facility] Infusion 800 [place] [address] 03/10/2025 11:20 AM EDT Office Visit Pav CC Head, Neck & Respiratory 800 [facility], 2nd [place] [address] Elsa Razo, ELECTRONICS SCALE TESTER 800 [place] [address] documented as of this encounter Procedures Procedure Name Priority Date/Time Associated Diagnosis Comments BONE MARROW EXAM CONSULT Routine 10/15/2024 1:27 PM EDT Abnormal finding of blood chemistry, unspecified documented in this encounter Results * Bone marrow exam consult (10/15/2024 1:27 PM EDT) Case Report Bone Marrow Case: [id number] Authorizing Provider: Virgen Vargas MD Collected: 10/15/2024 1327 Ordering Location: [facility] Lab Received: 10/15/2024 1327 Pathologist: Martha Lopez MD Specimen: Bone Marrow Aspirate, [id number] 10/16/2024 2:02 PM EDT [facility] Final Diagnosis A. 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 10/16/2024 2:02 PM EDT [facility] Clinical Information R79.9 - Abnormal finding of blood chemistry, unspecified [ICD-10-CM] 10/16/2024 2:02 PM EDT [facility] CBC [...] Granulocytes % 0 10/16/2024 2:02 PM EDT [facility] Bone Marrow Differential BONE MARROW DIFFERENTIAL: 200 cells Normal Patient Neutrophils 15-50 22 Metamyelocytes 4-19 3 Myelocytes 1-18 11 Promyelocytes 1-8 1 Blasts 0-2 13 Monocytes 0-5 4 Erythroid 16-38 41 Lymphocytes 3-24 4 Eosinophils 0-6 1 Basophils 0-2 0 Plasma cells 0-4 0 Other 10/16/2024 2:02 PM EDT [facility] Bone Marrow Aspirate and [...] trabeculae are unremarkable. 10/16/2024 2:02 PM EDT [facility] Flow Cytometry Interpretation Outside flow cytometry showed 17% myeloblasts expressing CD34, CD117, partial CD 38, partial CD7, HLA-DR, CD13 and variable CD33. 10/16/2024 2:02 PM EDT [facility] CYTOGENETICS/MOL ECULAR INTERPRETATION Cytogenetic analysis showed normal male karyotype. No FLT3 duplication or mutation was identified, and no NPM1 mutation was identified. 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 10/16/2024 2:02 PM EDT [facility] Gross Description A. [id number] Received along with a corresponding pathology report from [facility] Laboratory are 12 slides labeled outside case: [id number] collected on 09/19/2024. 10/16/2024 2:02 PM EDT [facility] Bone Marrow Specimen from bone marrow obtained by aspiration / Unknown 10/15/2024 1:27 PM EDT 10/15/2024 1:27 PM EDT us Virgen Vargas MD LAB PATHOLOGY ORDERABLES Terri lara Result [facility] 800 [place] [address] documented in this encounter Visit Diagnoses Diagnosis [...] as of this encounter Care Teams Vp Of Marketing Relationship Specialty Start Date End Date Zhao Harris MD [facility] [place] [id number] PCP - General 12/03/20 documented as of this encounter
--- OUTSIDE RECORDS SUMMARY | 2025-01-09 08:24 | XMS_ITS | Encounter Summary ---
Author Organization [facility] Address [address] [place] [address] Care Team Providers Care Merchandise Examiner Name Role Phone Zhao Harris MD Primary Care Provider [phone] Encounter Details Date Type Department Care Team [...] drink first t manav in the morning (EYE-CIGAR PACKER AND PICKER) to steady your nerves or to get [...] Hematology/BMT and Cellular Therapy Program [address] [address] 01/13/2025 10:00 AM EDT Office Visit P[facility] CC Hematology/BMT and Cellular Therapy Program 750 [facility], [address] [place] [phone] Isaura Wynn, OBSTETRICS AND GYNECOLOGY PROFESSOR 800 [facility] [address] [place] [phone] 01/13/2025 11:30 AM EDT Appointment [facility] H Infusion 800 [place] [address] 01/14/2025 2:00 PM EDT Appointment [facility]fusion 800 [place] [address] 01/15/2025 2:00 PM EDT Appointment [facility] Infusion 800 [place] [address] 01/16/2025 2:00 PM EDT Appointment [facility] Infusion 800 [place] [address] 01/17/2025 2:00 PM EDT Appointment [facility] Infusion 800 [place] [address] 01/18/2025 2:00 PM EDT Appointment [facility] Infusion 800 [place] [address] 01/19/2025 2:00 PM EDT Appointment [facility] Infusion 800 [place] [address] 03/10/2025 11:20 AM EDT Office Visit Pav CC Head, Neck & Respiratory 800 [facility], 2nd [place] [address] Elsa Razo, OBSTETRICS AND GYNECOLOGY PROFESSOR 800 [place] [address] documented as of this encounter Visit Diagnoses [...] documented as of this encounter Care Teams Merchandise Examiner Relationship Specialty Start Date End Date Zhao Harris MD [address] [facility] [address] [place] [address] PCP - General 12/03/20 documented as of this encounter
--- OUTSIDE RECORDS SUMMARY | 2025-01-09 08:24 | XMS_ITS | Encounter Summary ---
Author Organization [facility] Address [address] [place] [address] Care Team Providers Care Designer Writer Name Role Phone Zhao Harris MD Primary Care Provider [phone] Encounter Details Date Type Department Care Team (Late st Contact Info) Description 11/18/2024 Telephone [facility] [address] [place] [address] Maia Velasquez, PharmD [facility] [place] [phone] Social History Tobacco Use Types Packs/Day Years [...] first t manav in the morning (EYE-SALES ENGAGEMENT EXECUTIVE) to steady your nerves or to [...] start on 11/19 due to inability for [facility] to get it to patient in time to start this evening. They will mixing picker tender at [facility] on 11/19. Tolerated C1 well, only had one vomiting episode when didn't take zofran. NO questions or concerns today. documented in this encounter Plan of Treatment Upcoming Encounters Date Type Department Care Team ([facility] st Contact Info) Description 01/13/2025 9:30 AM EDT Clinical Support [facility] CC Hematology/BMT and Cellular Therapy Program [address] [place] [address] 01/13/2025 10:00 AM EDT Office Visit [facility] CC Hematology/BMT and Cellular Therapy Program [address] [address] Isaura Wynn, BOARD OF DIRECTORS [address] [facility] [address] [place] [address] 01/13/2025 11:30 AM EDT Appointment [facility] Infusion 800 [place] [address] 01/14/2025 2:00 PM EDT Appointment [facility] Infusion 800 [place] [address] 01/15/2025 2:00 PM EDT Appointment [facility] Infusion 800 [place] [address] 01/16/2025 2:00 PM EDT Appointment [facility]fusion 800 [place] [address] 01/17/2025 2:00 PM EDT Appointment [facility] Infusion 800 [place] [address] 01/18/2025 2:00 PM EDT Appointment [facility] Infusion 800 [place] [address] 01/19/2025 2:00 PM EDT Appointment [facility] Infusion 800 [place] [address] 03/10/2025 11:20 AM EDT Office Visit Pav CC Head, Neck & Respiratory 800 [facility], 2nd [place] [address] Elsa Razo, BOARD OF DIRECTORS 800 [place] [address] documented as of this encounter Visit Diagnoses [...] documented as of this encounter Care Teams Designer Writer Relationship Specialty Start Date End Date Zhao Harris MD [address] [address] PCP - General 12/03/20 documented as of this encounter
--- OUTSIDE RECORDS SUMMARY | 2025-01-09 08:24 | XMS_ITS | Encounter Summary ---
Author Organization [facility] Address [address] [place] [address] Care Team Providers Care Head Of Digital Advertising & Integration Name Role Phone Zhao Harris MD Primary Care Provider [phone] Reason for Visit * Reason Comments Med Refill Encounter Details Date Type Department Care Team ([facility] Contact Info) Description 01/18/2022 Refill [facility] [place] [address] [facility], [address] [place] [address] Regina Hill, PA 800 [place] [address] Hypertension, unspecified type Social History [...] Hematology/BMT and Cellular Therapy Program [address] [place] [address] 01/13/2025 10:00 AM EDT Office Visit [facility] Hematology/BMT and Cellular Therapy Program [address] [place] [address] Isaura Wynn, GOLF CART REPAIRER [address] [facility] [address] [place] [phone] 01/13/2025 11:30 AM EDT Appointment PAV H Infusion 800 [place] [address] 01/14/2025 2:00 PM EDT Appointment [facility] Infusion [address] [place] [address] 01/15/2025 2:00 PM EDT Appointment [facility] Infusion 800 [place] [address] 01/16/2025 2:00 PM EDT Appointment [facility] Infusion [address] [place] [address] 01/17/2025 2:00 PM EDT Appointment [facility] Infusion [address] [place] [address] 01/18/2025 2:00 PM EDT Appointment [facility] Infusion [address] [place] [address] 01/19/2025 2:00 PM EDT Appointment [facility] Infusion 800 [place] [address] 03/10/2025 11:20 AM EDT Office Visit Pav [facility] Head, Neck & Respiratory 800 [facility], 2nd [place] [address] Elsa Razo, GOLF CART REPAIRER 800 [place] [address] documented as of this encounter Visit Diagnoses Diagnosis Hypertension, unspecified type documented in this encounter Additional Health Concerns Infection Onset Date Last Indicated Resolved Time Respiratory Rule-Out 11/03/2024 11/03/2024 025 5:17 PM EDT documented as of this encounter Care Teams Head Of Digital Advertising & Integration Relationship Specialty Start Date End Date Zhao Harris MD [address] [address] PCP - General 12/03/20 documented as of this encounter
--- OUTSIDE RECORDS SUMMARY | 2025-01-09 08:24 | XMS_ITS | Encounter Summary ---
Author Organization [facility] Address [address] [place] [address] Care Team Providers Care Machine Zipper Trimmer Name Role Phone Zhao Harris MD Primary Care Provider [phone] Encounter Details Date Type Department Care Team [...] drink first t manav in the morning (EYE-CD STORAGE AND MATERIALS MAKE UP HELPER) to steady your nerves or to [...] Upcoming Encounters Date Type Department Care Team ([facility] st Contact Info) Description 01/13/2025 9:30 AM EDT Clinical Support P[facility] CC Hematology/BMT and Cellular Therapy Program [address] [address] 01/13/2025 10:00 AM EDT Office Visit [facility] CC Hematology/BMT and Cellular Therapy Program 750 [facility], [address] [place] [address] Isaura Wynn, IRON CASTER 800 [facility] [address] [place] [phone] 01/13/2025 11:30 AM EDT Appointment [facility] Infusion 800 [place] [address] 01/14/2025 2:00 PM EDT Appointment [facility] Infusion [address] [place] [address] 01/15/2025 2:00 PM EDT Appointment [facility] Infusion [address] [place] [address] 01/16/2025 2:00 PM EDT Appointment [facility] Infusion [address] [place] [address] 01/17/2025 2:00 PM EDT Appointment [facility] Infusion [address] [place] [address] 01/18/2025 2:00 PM EDT Appointment [facility] Infusion [address] [place] [address] 01/19/2025 2:00 PM EDT Appointment [facility] Infusion [address] [place] [address] 03/10/2025 11:20 AM EDT Office Visit [facility] Head, Neck & Respiratory 800 [facility], 2nd [place] [address] Elsa Razo, IRON CASTER 800 [place] [address] documented as of this encounter Visit Diagnoses [...] as of this encounter Care Teams Machine Zipper Trimmer Relationship Specialty Start Date End Date Zhao Harris MD [address] [facility] [address] [place] [address] PCP - General 12/03/20 documented as of this encounter
[2025-01-09 08:34] LABS: Hematocrit 23.6 % (42.0-52.0); Immature Granulocytes # 0 10^3uL; Immature Granulocytes % 0 %; Lymphocytes # 0.5 K/mm3 (0.7-4.5); Mean Corpuscular HGB Conc 33.9 g/dL (31.8-35.4); Mean Corpuscular Hemoglobin 29.3 pg (27.0-31.2); Mean Corpuscular Volume 86.4 fl (80-94); Mean Platelet Volume 9.5 fl (7.4-10.4); Nucleated Red Blood Cells # 0 10^3/uL; Nucleated Red Blood Cells % 0 %; Red Blood Count 2.73 M/mm3 (4.60-6.20); Red Cell Distribution Width 14.6 % (11.5-17.5); Red Cell Distribution Width-SD 42.7 fL
[2025-01-09 08:41] LABS: Chloride 112 mmol/L (98-107); Platelet Count 15 K/mm3 (142-424); White Blood Count 0.5 K/mm3 (4.8-10.8)
[2025-01-09 08:42] LABS: Albumin Level 4.1 g/dl (3.5-5.0); MANUAL DIFFERENTIAL MANUAL DIFFERENTIAL (MANUAL DIFF); Potassium 4.1 mmoL/L (3.5-5.1); Sodium 139 mmol/L (136-145)
[2025-01-09 08:44] LABS: Blood Urea Nitrogen 12 mg/dl (9-20); Creatinine Clearance Estimated 89 mL/min (50-200); Estimated Glomerular Filt Rate 112 ml/min (>60); GFR (African American) 135 ML/MIN (>60)
[2025-01-09 08:45] LABS: Alanine Aminotransferase 49 U/L (12-78); Albumin/Globulin Ratio 1.4 (1.1-1.8); Alkaline Phosphatase 74 U/L (38-126); Anion Gap 9.1 mEq/L (5-15); Aspartate Amino Transferase 58 U/L (17-59); Bilirubin,Total 0.8 mg/dl (0.2-1.3); Calcium 8.8 mg/dl (8.4-10.2); Carbon Dioxide 22 mmol/L (22.0-30.0); Glucose 102 mg/dl (74-100); Total Protein,Serum 7.1 g/dl (6.3-8.2)
[2025-01-09 09:01] LABS: Lymphocytes % 95 % (10-50); Monocytes % 3 % (2-9); Neutrophils % 2 % (42-76); Platelet Estimate Marked Decrease; RBC Morphology Normal; Total Cells Counted 100
--- NOTE | 2025-01-09 10:08 | PC.NURSE ---
0815-Blood drawn from right AC using butterfly needle to check CBC and CMP.
[2025-01-09] MEDS: ACETAMINOPHEN 325MG TAB 650 MG (13:30)
[2025-01-09] MEDS: diphenhydrAMINE 25MG CAPSULE 25 MG PO (13:30)
[2025-01-09] MEDS: 0.9 % SODIUM CHLORIDE 250 ML 25 ML IV (14:05)
--- NOTE | 2025-01-09 14:13 | PC.NURSE ---
1408-Blood transfusion started at 100ml/hr at this time.
--- NOTE | 2025-01-09 14:48 | PC.NURSE ---
1438-Increased rate to 200 ml/hr at this time.
--- NOTE | 2025-01-09 15:16 | PC.NURSE ---
Increased rate to 250ml/hr at 1500.
--- NOTE | 2025-01-09 16:02 | PC.NURSE ---
1559-Platelets transfusing by gravity at this time.
== END 2025-01-09 16:51 | disposition home or self-care (01) ==
LOC: INF 08:11
PROVIDERS: PCP Family Medicine; Visit Provider Internal Medicine Medical Oncology
DX: D64.9 Anemia, unspecified (principal)
CPT/HCPCS: 36415; 36430; 80053; 85007; 85025; 85027; 86850; J1642; J7050; P9016; P9034

== ENCOUNTER 2025-01-20 08:30 | Outpatient (CLI) | payer MEDICARE, SELFPAY ==
--- OUTSIDE RECORDS SUMMARY | 2024-11-20 14:06 | XMS_ITS | Encounter Summary ---
Author Organization [facility] Address [address] [place] [address] Care Team Providers Care Machine Package Sealer Name Role Phone Zhao Harris MD Primary Care Provider [phone] Encounter Details Date Type Department Care Team (Latest Contact Info) Description 11/20/2024 2:06 PM EDT - 11/20/2024 11:59 [address] EDT [address] [facility] Infusion Clinic [address] [place] [phone] Myelodysplasia (myelodysplastic syndrome) (CMS/HCC) (Primary Dx) Discharge [...] drink first t manav in the morning (EYE-COMBINE OPERATOR) to steady your nerves or to [...] 5 MG tabletIndications :Coronary artery disease involving [place] heart with angina pectoris, unspecified vessel or lesion type (CMS/HCC),Hyperte nsion, unspecified type Take 1 tablet (5 mg) by mouth daily. 90 tablet 3 09/11/2024 HYDROcodone-aceta minophen ([place]) 5-325 MG tablet Take 1 tablet by mouth every 6 hours as needed. 11/07/2024 levoFLOXacin (Levaquin) 500 MG tabletIndications :Myelodysplasia (myelodysplastic syndrome) (CMS/HCC) Take 1 tablet (500 mg) by mouth daily. 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 pectoris, unspecified vessel or [...] Care Team (Late st Contact Info) Description 02/02/2025 11:00 AM EDT Appointment [facility] Interventional Radiology [address] [place] [address] 02/10/2025 8:30 AM EDT Clinical Support [facility] Hematology/BMT and Cellular Therapy Program [address] [phone] 02/10/2025 9:00 AM EDT Office Visit [facility] Hematology/BMT and Cellular Therapy Program [address] [phone] Elaina Boss, [place] 800 [facility] [address] [place] [phone] 02/10/2025 10:30 AM EDT Appointment [facility] Infusion Clinic 1 [address] [place] [address] 02/11/2025 2:00 PM EDT Appointment [facility] Infusion Clinic 1 [address] [place] [address] 02/12/2025 2:00 PM EDT Appointment [facility] Infusion Clinic 1 [address] [place] [address] 02/13/2025 2:00 PM EDT Appointment [facility] Infusion [facility] 1 [address] [place] [address] 02/14/2025 2:00 PM EDT Appointment [facility] Infusion [facility] 1 [address] [place] [address] 03/10/2025 8:30 AM EDT Clinical Support [facility] Hematology/BMT and Cellular Therapy Program [address] [phone] 03/10/2025 9:00 AM EDT Office Visit [facility] Hematology/BMT and Cellular Therapy Program [address] [phone] Isaura Wynn, PROFILE STITCHING MACHINE OPERATOR 800 [facility] [address] [place] [phone] 03/10/2025 11:20 AM EDT Office Visit Pav CC Head, Neck & Respiratory 800 [facility], 2nd [place] [address] Elsa Razo, PROFILE STITCHING MACHINE OPERATOR 800 [place] [phone] documented as of this encounter Visit Diagnoses [...] documented as of this encounter Care Teams Machine Package Sealer Relationship Specialty Start Date End Date Zhao Harris MD [address] [address] PCP - General 12/03/20 documented as of this encounter
--- OUTSIDE RECORDS SUMMARY | 2024-11-21 13:30 | XMS_ITS | Encounter Summary ---
Author Organization [facility] Address [address] [place] [address] Care Team Providers Care Shake Maker Name Role Phone Zhao Harris MD Primary Care Provider + [phone] Reason for Visit * Episode Based Medications (Routine) - Closed Specialty Diagnoses / Procedures Referred By Justice mcgee Referred To Contact Diagnoses Myelodysplasia (myelodysplastic syndrome) (CMS/HCC) Procedures Azacitidine Daily x 7 / Venetoclax Every 28 Days Vrigen Vargas MD [address] [address] Phone: tel: fax: Virgen Vargas MD [address] [phone] Phone: tel: fax: Referral ID Status Reason Start Date Expiration Date Visits Re quested Visits Authorized [id number] Closed 10/20/2024 04/21/2026 1 91 Encounter Details Date Type Department Care Team (Latest Contact Info) Description 11/21/2024 1:30 PM EDT - 11/21/2024 11:59 PM EDT Hospital Encounter [facility] Infusion Clinic 1 [address] [place] [phone] Myelodysplasia (myelodysplastic syndrome) (CMS/HCC) (Primary Dx) Discharge [...] drink first t manav in the morning (EYE-HANDLE SEWER) to steady your nerves or to get [...] 5 MG tabletIndications :Coronary artery disease involving [place] heart with angina pectoris, unspecified vessel or lesion type (CMS/HCC),Hyperte nsion, unspecified type Take 1 tablet (5 mg) by mouth daily. 90 tablet 3 09/11/2024 HYDROcodone-aceta minophen ([place]) 5-325 MG tablet Take 1 tablet by mouth every 6 hours as needed. 11/07/2024 levoFLOXacin (Levaquin) 500 MG tabletIndications :Myelodysplasia (myelodysplastic syndrome) (CMS/HCC) Take 1 tablet (500 mg) by mouth daily. 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 pectoris, unspecified vessel or [...] Upcoming Encounters Date Type Department Care Team ([facility] st Contact Info) Description 02/02/2025 11:00 AM EDT Appointment PAV A Interventional Radiology [address] [place] [address] 02/10/2025 8:30 AM EDT Clinical Support [facility] Hematology/BMT and Cellular Therapy Program [address] [place] [address] 02/10/2025 9:00 AM EDT Office Visit [facility] Hematology/BMT and Cellular Therapy Program [address] [place] [address] Elaina Boss PA 800 [facility] [address] [place] [phone] 02/10/2025 10:30 AM EDT Appointment [facility] Infusion Clinic 1 [address] [place] [phone] 02/11/2025 2:00 PM EDT Appointment [facility] Infusion Clinic 1 [address] [place] [address] 02/12/2025 2:00 PM EDT Appointment [facility] Infusion Clinic 1 [address] [place] [address] 02/13/2025 2:00 PM EDT Appointment [facility] Infusion Clinic 1 [address] [place] [phone] 02/14/2025 2:00 PM EDT Appointment [facility] Infusion Clinic 1 [address] [place] [phone] 03/10/2025 8:30 AM EDT Clinical Support [facility] Hematology/BMT and Cellular Therapy Program [address] [phone] 03/10/2025 9:00 AM EDT Office Visit [facility] Hematology/BMT and Cellular Therapy Program [address] [phone] Isaura Wynn, ESTRELLA 800 [facility] [address] [place] [address] 03/10/2025 11:20 AM EDT Office Visit Pav CC Head, Neck & Respiratory 800 [facility], 2nd [place] [phone] Elsa Razo, ESTRELLA [address] [place] [phone] documented as of this encounter Visit Diagnoses [...] Sun11/21/24 at 1445, RoutineIndications:Myelodyspla haim (myelodysplastic syndrome) (CMS/HCC) Given 11/21/2024 2:32 PM EDT 16 mg [...] documented as of this encounter Care Teams Shake Maker Relationship Specialty Start Date End Date Zhao Harris MD [address] [place] [address] PCP - General 12/03/20 documented as of this encounter
--- OUTSIDE RECORDS SUMMARY | 2024-11-22 13:59 | XMS_ITS | Encounter Summary ---
Author Organization [facility] Address [address] [place] [address] Care Team Providers Care High School Music Director Name Role Phone Zhao Harris MD Primary Care Provider + [phone] Reason for Visit * Episode Based Medications (Routine) - Closed Specialty Diagnoses / Procedures Referred By Justice mcgee Referred To Contact Diagnoses Myelodysplasia (myelodysplastic syndrome) (CMS/HCC) Procedures Azacitidine Daily x 7 / Venetoclax Every 28 Days Virgen Vargas MD [address] [place] [phone] Phone: tel: fax: Virgen Vargas MD [address] [address] Phone: tel: fax: Referral ID Status Reason Start Date Expiration Date Visits Re quested Visits Authorized [id number] Closed 10/20/2024 04/21/2026 1 91 Encounter Details Date Type Department Care Team (Latest Contact Info) Description 11/22/2024 1:59 PM EDT - 11/22/2024 11:59 PM EDT Hospital Encounter [facility] Infusion Clinic 1 [address] [place] [phone] Myelodysplasia (myelodysplastic syndrome) (CMS/HCC) (Primary Dx); Thrombocytopenia [...] drink first t manav in the morning (EYE-HAND ALTERATIONS SEAMSTRESS) to steady your nerves or to get [...] 5 MG tabletIndications :Coronary artery disease involving [place] heart with angina pectoris, unspecified vessel or lesion type (CMS/HCC),Hyperte nsion, unspecified type Take 1 tablet (5 mg) by mouth daily. 90 tablet 3 09/11/2024 HYDROcodone-aceta minophen ([place]) 5-325 MG tablet Take 1 tablet by mouth every 6 hours as needed. 11/07/2024 levoFLOXacin (Levaquin) 500 MG tabletIndications :Myelodysplasia (myelodysplastic syndrome) (CMS/HCC) Take 1 tablet (500 mg) by mouth daily. 30 tablet 3 10/14/2024 nitroglycerin (Nitrostat) 0.4 MG SL tabletIndications :Coronary artery disease involving [place] heart with angina pectoris, unspecified vessel or [...] 2.5 MG tabletIndications :Coronary artery disease involving [place] heart with angina pectoris, unspecified vessel or [...] 11/22/2024 2:00 PM EDTEncounter addended by: Irena Vleasquez on: 11/24/2024 8:51 AM Actions taken: Order list changed, Diagnosis association updated, Child order released for a procedure order documented in this encounter Plan of Treatment Upcoming Encounters Date Type Department Care Team (Late st Contact Info) Description 02/02/2025 11:00 AM EDT Appointment [facility] A Interventional Radiology [address] [place] [phone] 02/10/2025 8:30 AM EDT Clinical Support [facility] Hematology/BMT and Cellular Therapy Program [address] [address] 02/10/2025 9:00 AM EDT Office Visit [facility] Hematology/BMT and Cellular Therapy Program [address] [phone] Elaina Boss, PA 800 [facility] [address] [place] [address] 02/10/2025 10:30 AM EDT Appointment [facility] Infusion Clinic 1 [address] [place] [address] 02/11/2025 2:00 PM EDT Appointment [facility] Infusion [facility] 1 [address] [place] [address] 02/12/2025 2:00 PM EDT Appointment [facility] Infusion [facility] 1 [address] [place] [address] 02/13/2025 2:00 PM EDT Appointment [facility] Infusion [facility] 1 [address] [place] [address] 02/14/2025 2:00 PM EDT Appointment [facility] Infusion [facility] 1 [address] [place] [address] 03/10/2025 8:30 AM EDT Clinical Support [facility] Hematology/BMT and Cellular Therapy Program [address] [address] 03/10/2025 9:00 AM EDT Office Visit [facility] Hematology/BMT and Cellular Therapy Program [address] [address] Isaura Wynn APRN 800 [facility] [address] [phone] 03/10/2025 11:20 AM EDT Office Visit [facility] CC Head, Neck & Respiratory 800 [facility], 2nd [place] [address] Elsa Razo, MERCURY WASHER [address] [place] [address] documented as of this encounter [...] * Transfuse platelets (11/22/2024 4:34 PM EDT) Kayli CHIU BLOOD TRANSFUSION ORDERA BLES Final Result * (ABNORMAL) Platelet count (11/22/2024 4:24 PM EDT) Pathologist [facility] [place] Platelet Count 62(L) 155 - 369 10*3/uL LAB HEMATOLOGY METHOD 11/22/2024 5:13 PM EDT [facility] Blood Venous blood specimen / Unknown Venipuncture / Unknown 11/22/2024 4:24 PM EDT 11/22/2024 5:04 PM EDT Virgen Vargas MD LAB BLOOD ORDERABLES Final Re sult [facility] [address] [place] [address] * Exception to Standard Practice, Pathologist Interpretation (11/22/2024 3:27 PM EDT) Pathologist [facility] [place] Clinical Diagnosis, Exception to Standard Practice thrombocytopenia [...] ORDERAB LES Final Result Performing Organization Address City/[facility] Co de Phone Number BLOOD BANK [address] * Prepare Leukocyte Reduced Platelets: 1 Units (11/22/2024 3:18 PM EDT) Product Code [id number] CH BLOO D BANK Dispense Status Transfused BLOOD BANK Blood Expiration Date [id number] BLOOD BANK Unit Number [id number] B LOOD BANK Product Blood Type 5100 BLOOD BANK Blood Type O+ BLOOD BANK Blood Venous blood specimen / Unknown us Kayli CIHU BLOOD BANK PRODUCT ORDER VIKAS Final Result Performing Organization Address City/[facility] Co de Phone Number BLOOD BANK [address] documented in this encounter Visit Diagnoses [...] dose, In 50 mL NSIndications:Myelodysplasia (myelodysplastic syndrome) ([facility]/HCC) New Bag 11/22/2024 3:02 PM EDT 150 mg 540 mL/hr ondansetron ODT (Zofran-ODT) disintegrating tablet 16 mg 16 mg, Oral, Once, 1 dose, On 11/22/24 at 1430, RoutineIndications:Myelodyspla haim (myelodysplastic syndrome) ([facility]/HCC) Given 11/22/2024 2:33 PM EDT 16 mg [...] documented as of this encounter Care Teams High School Music Director Relationship Specialty Start Date End Date Zhao Harris MD [address] [place] [address] PCP - General 12/03/20 documented as of this encounter
--- OUTSIDE RECORDS SUMMARY | 2024-11-23 13:43 | XMS_ITS | Encounter Summary ---
Author Organization [facility] Address [address] [place] [address] Care Team Providers Care Farm Planner Name Role Phone Zhao Harris MD Primary Care Provider + [phone] Reason for Visit * Episode Based Medications (Routine) - Closed Specialty Diagnoses / Procedures Referred By Justice mcgee Referred To Contact Diagnoses Myelodysplasia (myelodysplastic syndrome) (CMS/HCC) Procedures Azacitidine Daily x 7 / Venetoclax Every 28 Days Virgen Vargas MD [address] [phone] Phone: tel: fax: Virgen Vargas MD [address] [address] Phone: tel: fax: Referral ID Status Reason Start Date Expiration Date Visits Re quested Visits Authorized [id number] Closed 10/20/2024 04/21/2026 1 91 Encounter Details Date Type Department Care Team (Latest Contact Info) Description 11/23/2024 1:43 PM EDT - 11/23/2024 11:59 PM EDT Hospital Encounter [facility] Infusion Clinic 1 [address] [place] [phone] Myelodysplasia (myelodysplastic syndrome) (CMS/HCC) (Primary Dx) Discharge [...] drink first t manav in the morning (EYE-CALENDER LET OFF HELPER) to steady your nerves or to get [...] 5 MG tabletIndications :Coronary artery disease involving [place] heart with angina pectoris, unspecified vessel or lesion type (CMS/HCC),Hyperte nsion, unspecified type Take 1 tablet (5 mg) by mouth daily. 90 tablet 3 09/11/2024 HYDROcodone-aceta minophen ([place]) 5-325 MG tablet Take 1 tablet by mouth every 6 hours as needed. 11/07/2024 levoFLOXacin (Levaquin) 500 MG tabletIndications :Myelodysplasia (myelodysplastic syndrome) (CMS/HCC) Take 1 tablet (500 mg) by mouth daily. 30 tablet 3 10/14/2024 nitroglycerin (Nitrostat) 0.4 MG SL tabletIndications :Coronary artery disease involving [place] heart with angina pectoris, unspecified vessel or [...] 2.5 MG tabletIndications :Coronary artery disease involving [place] heart with angina pectoris, unspecified vessel or [...] Appointment [facility] A Interventional Radiology [address] [place] [address] 02/10/2025 8:30 AM EDT Clinical Support [facility] Hematology/BMT and Cellular Therapy Program [address] [place] [address] 02/10/2025 9:00 AM EDT Office Visit [facility] Hematology/BMT and Cellular Therapy Program [address], [address] [place] [phone] Elaina Boss, ARAM 800 [facility] [address] [place] [address] 02/10/2025 10:30 AM EDT Appointment [facility] Infusion Clinic 1 [address] [place] [address] 02/11/2025 2:00 PM EDT Appointment [facility] Infusion Clinic 1 [address] [place] [phone] 02/12/2025 2:00 PM EDT Appointment [facility] Infusion Clinic 1 [address] [place] [address] 02/13/2025 2:00 PM EDT Appointment [facility] Infusion [facility] 1 [address] [place] [address] 02/14/2025 2:00 PM EDT Appointment [facility] Infusion [facility] 1 [address] [place] [address] 03/10/2025 8:30 AM EDT Clinical Support [facility] Hematology/BMT and Cellular Therapy Program [address] [phone] 03/10/2025 9:00 AM EDT Office Visit [facility] Hematology/BMT and Cellular Therapy Program [address] [phone] Isaura Wynn, TALEND ETL DEVELOPER 800 [facility] [address] [place] [address] 03/10/2025 11:20 AM EDT Office Visit [facility] Head, Neck & Respiratory 800 [facility], 2nd [place] [address] Elsa Razo, TALEND ETL DEVELOPER 800 [place] [address] documented as of this encounter Visit Diagnoses [...] documented as of this encounter Care Teams Farm Planner Relationship Specialty Start Date End Date Zhao Harris MD [address] [place] [address] PCP - General 12/03/20 documented as of this encounter
--- OUTSIDE RECORDS SUMMARY | 2024-11-24 13:59 | XMS_ITS | Encounter Summary ---
Author Organization [facility] Address [address] [place] [address] Care Team Providers Care Pyrometallurgical Engineer Name Role Phone Zhao Harris MD Primary Care Provider + [phone] Reason for Visit * Episode Based Medications (Routine) - Closed Specialty Diagnoses / Procedures Referred By Justice mcgee Referred To Contact Diagnoses Myelodysplasia (myelodysplastic syndrome) (CMS/HCC) Procedures Azacitidine Daily x 7 / Venetoclax Every 28 Days Virgen Vargas MD [address] [address] Phone: tel: fax: Virgen Vargas MD [address] [address] Phone: tel: fax: Referral ID Status Reason Start Date Expiration Date Visits Re quested Visits Authorized [id number] Closed 10/20/2024 04/21/2026 1 91 Encounter Details Date Type Department Care Team (Latest Contact Info) Description 11/24/2024 1:59 PM EDT - 11/24/2024 2:29 PM EDT Hospital Encounter [facility] Infusion Clinic [address] [place] [phone] Myelodysplasia (myelodysplastic syndrome) (CMS/HCC) (Primary Dx); Thrombocytopenia [...] drink first t manav in the morning (EYE-VEHICLE MAINTENANCE TECHNICIAN) to steady your nerves or to [...] 5 MG tabletIndications :Coronary artery disease involving [place] heart with angina pectoris, unspecified vessel or lesion type (CMS/HCC),Hyperte nsion, unspecified type Take 1 tablet (5 mg) by mouth daily. 90 tablet 3 09/11/2024 HYDROcodone-aceta minophen ([place]) 5-325 MG tablet Take 1 tablet by mouth every 6 hours as needed. 11/07/2024 levoFLOXacin (Levaquin) 500 MG tabletIndications :Myelodysplasia (myelodysplastic syndrome) (CMS/HCC) Take 1 tablet (500 mg) by mouth daily. 30 tablet 3 10/14/2024 nitroglycerin (Nitrostat) 0.4 MG SL tabletIndications :Coronary artery disease involving [place] heart with angina pectoris, unspecified vessel or [...] 2.5 MG tabletIndications :Coronary artery disease involving [place] heart with angina pectoris, unspecified vessel or [...] a preserved mata-T cell profile with a CD4:ZN9wsrsv of 2.7:1. Polyclonal B-cells (3%) and a [...] counts (WBC 2.3 k/??L, hemoglobin 11.6 g/dL, [id number] k/??L) prompted a bone marrow biopsy on [...] Vargas - Next appointment on 12/09/24 ARAM Higeura HEMATOLOGY/BMT AND CELLULAR THERAPY PROGRAM [address] [place] [phone] SERVICE PAGER [phone]/[employer] CHAT 23 minutes was spent on this [...] daily., Disp: 90 tablet, Rfl: 3 HYDROcodone-acetaminophen ([place]) 5-325 MG tablet, Take 1 tablet by [...] Appointment PAV A Interventional Radiology [address] [place] [address] 02/10/2025 8:30 AM EDT Clinical Support PAV Hematology/BMT and Cellular Therapy Program [address] [place] [address] 02/10/2025 9:00 AM EDT Office Visit PAV Hematology/BMT and Cellular Therapy Program [address] [place] [address] [place] [phone] Elaina Boss, PA 800 [facility] [address] [place] [phone] 02/10/2025 10:30 AM EDT Appointment PAV Infusion Clinic [address] [place] [phone] 02/11/2025 2:00 PM EDT Appointment [facility] Infusion Clinic [address] [place] [phone] 02/12/2025 2:00 PM EDT Appointment P[facility] Infusion Clinic [address] [place] [phone] 02/13/2025 2:00 PM EDT Appointment PAV Infusion Clinic [address] [place] [phone] 02/14/2025 2:00 PM EDT Appointment PAV Infusion Clinic [address] [place] [phone] 03/10/2025 8:30 AM EDT Clinical Support PAV CC Hematology/BMT and Cellular Therapy Program [address] [phone] 03/10/2025 9:00 AM EDT Office Visit PAV CC Hematology/BMT and Cellular Therapy Program [address] [phone] Isaura Wynn, BUZZSAW OPERATOR HELPER 800 [facility] [address] [place] [phone] 03/10/2025 11:20 AM EDT Office Visit Pav CC Head, Neck & Respiratory 800 [facility], 2nd [place] [phone] Elsa Razo, BUZZSAW OPERATOR HELPER [address] [place] [phone] documented as of this encounter Procedures Procedure [...] LAB HEMATOLOGY METHOD 11/24/2024 4:23 PM EDT [facility] Blood Venous blood specimen / Unknown Venipuncture / Unknown 11/24/2024 4:19 PM EDT 11/24/2024 4:20 PM EDT Result [facility] Virgen Vargas MD LAB BLOOD ORDERABLES Final Re sult [facility] [address] [place] [address] * Transfuse platelets (11/24/2024 4:11 PM EDT) Kayli CHIU BLOOD TRANSFUSION ORDERA BLES Final Result * Transfuse platelets: 1 Units (11/24/2024 4:11 PM EDT) Kayli CHIU BLOOD [...] ORDERAB LES Final Result Performing Organization Address [facility]/ZIP Co de Phone Number BLOOD BANK [address] [place] [address], [place] * Prepare Leukocyte Reduced Platelets: 1 Units (11/24/2024 2:36 PM EDT) Product Code [id number] CH BLOO D BANK Dispense Status Transfused BLOOD BANK Blood Expiration Date [id number] BLOOD BANK Unit Number [id number] CH B LOOD BANK Product Blood Type 6200 BLOOD BANK Blood Type A+ CH BLOOD BANK Blood Venous blood specimen / Unknown Kayli CHIU BLOOD BANK PRODUCT ORDER VIKAS Final Result Performing Organization Address [facility] de Phone Number BLOOD BANK [address] [place] [address], [place] * Prepare Leukocyte Reduced RBC: 1 Units, Irradiated (11/24/2024 2:36 PM EDT) Product Code [id number] CH BLOO D BANK Dispense Status Transfused BLOOD BANK Blood Expiration Date [id number] BLOOD BANK Unit Number [id number] CH B LOOD BANK Product Blood Type 9500 BLOOD BANK Blood Type O- CH BLOOD BANK Crossmatch Compatible BLOOD BANK Other Kayli CHIU BLOOD BANK PRODUCT ORDER VIKAS Final Result Performing Organization Address City/[facility]/ZIP Co de Phone Number BLOOD BANK [address] [place] [address], [place] * Type and Screen (11/24/2024 2:07 PM EDT) ABO/Rh O Negative 11/24/2024 2:02 PM EDT BLOOD BANK Antibody Screen Negative 11/24/2024 2:02 PM EDT BLOOD BANK Specimen Expiration 11/27/2024 23:59 11/24/2024 2:02 PM EDT BLOOD BANK Blood Venous blood specimen / Unknown Venipuncture / Unknown 11/24/2024 2:07 PM EDT 11/24/2024 2:24 PM EDT us Virgen Vargas MD LAB BLOOD BANK TEST ORDERABLE S Final Result BLOOD BANK [address] [place] [address], * Comprehensive Metabolic Panel, Plasma (11/24/2024 2:07 PM EDT) Glucose, Plasma 97 74 - 99 mg/dL 11/24/2024 3:44 PM EDT [facility] BUN, Plasma 13 8 - 23 mg/dL 11/24/2024 3:44 PM EDT [facility] Creatinine, Plasma 0.97 0.70 - 1.20 mg/dL 11/24/2024 3:44 PM EDT [facility] BUN/Creatinine Ratio 13 11/24/2024 3:44 PM EDT [facility] Sodium, Plasma 138 136 - 145 mmol/L 11/24/2024 3:44 PM EDT [facility] Potassium, Plasma 3.7 3.6 - 4.9 mmol/L 11/24/2024 3:44 PM EDT [facility] Chloride, Plasma 107 97 - 107 mmol/L 11/24/2024 3:44 PM EDT [facility] CO2, Plasma 22 22 - 29 mmol/L 11/24/2024 3:44 PM EDT [facility] Anion Gap 9 6 - 16 mmol/L 11/24/2024 3:44 PM EDT [facility] Total Calcium, Plasma 9.5 8.9 - 10.2 mg/dL 11/24/2024 3:44 PM EDT [facility] Total Protein 6.7 6.3 - 7.9 g/dL 11/24/2024 3:44 PM EDT [facility] Albumin, Plasma 3.8 3.5 - 5.2 g/dL 11/24/2024 3:44 PM EDT [facility] AST, Plasma 18 10 - 50 U/L 11/24/2024 3:44 PM EDT [facility] ALT, Plasma 20 10 - 50 U/L 11/24/2024 3:44 PM EDT [facility] Alkaline Phosphatase, Plasma 71 40 - 115 U/L 11/24/2024 3:44 PM EDT [facility] Total Bilirubin, Plasma 0.7 0.2 - 1.1 mg/dL 11/24/2024 3:44 PM EDT [facility] eGFRcr 84.5 mL/min/1.7 3m*2 11/24/2024 3:44 PM EDT [facility] Comment:Reported eGFRcr in m L/min/1.73m2 is based the CKD-EPI 2020 equation that does not use a race coefficient. Blood Venous blood specimen / Unknown Venipuncture / Unknown 11/24/2024 2:07 PM EDT 11/24/2024 2:44 PM EDT us Virgen Vargas MD LAB BLOOD ORDERABLES Final Re sult [facility] [address] [place] [address] * (ABNORMAL) CBC and Differential (11/24/2024 2:07 PM EDT) WBC Count 0.76(LL) 3.70 - 10.30 10*3/uL LAB HEMATOLOGY METHOD 11/24/2024 2:44 PM EDT [facility] RBC Count 2.37(L) 4.60 - 6.10 10*6/uL LAB HEMATOLOGY METHOD 11/24/2024 2:44 PM EDT [facility] HGB 8.0(L) 13.7 - 17.5 g/dL LAB HEMATOLOGY METHOD 11/24/2024 2:44 PM EDT [facility] HCT 22.3(L) 40.0 - 51.0 % LAB HEMATOLOGY METHOD 11/24/2024 2:44 PM EDT [facility] Platelet Count 12(LL) 155 - 369 10*3/uL LAB HEMATOLOGY METHOD 11/24/2024 2:44 PM EDT [facility] MCV 94 79 - 98 fL LAB HEMATOLOGY METHOD 11/24/2024 2:44 PM EDT [facility] MCH 33.8(H) 26.0 - 32.0 pg LAB HEMATOLOGY METHOD 11/24/2024 2:44 PM EDT [facility] MCHC 35.9(H) 30.7 - 35.5 g/dL LAB HEMATOLOGY METHOD 11/24/2024 2:44 PM EDT [facility] RDW 18.8(H) 11.5 - 14.5 % LAB HEMATOLOGY METHOD 11/24/2024 2:44 PM EDT [facility] MPV LAB HEMATOLOGY METHOD 11/24/2024 2:44 PM EDT [facility] Comment:Not Measured nRBC 0.0 <=0.0 per 100 WBCs LAB HEMATOLOGY METHOD 11/24/2024 2:44 PM EDT [facility] Differential Type Automated LAB HEMATOLOGY METHOD 11/24/2024 2:44 PM EDT [facility] Neutrophils % 16 % LAB HEMATOLOGY METHOD 11/24/2024 2:44 PM EDT [facility] Lymphocytes % 79 % LAB HEMATOLOGY METHOD 11/24/2024 2:44 PM EDT [facility] Monocytes % 4 % LAB HEMATOLOGY METHOD 11/24/2024 2:44 PM EDT [facility] Eosinophils % 1 % LAB HEMATOLOGY METHOD 11/24/2024 2:44 PM EDT [facility] Basophils % 0 % LAB HEMATOLOGY METHOD 11/24/2024 2:44 PM EDT [facility] Immature Granulocytes % 0 % LAB HEMATOLOGY METHOD 11/24/2024 2:44 PM EDT [facility] Neutrophils Absolute 0.12(LL) 1.60 - 6.10 10*3/uL LAB HEMATOLOGY METHOD 11/24/2024 2:44 PM EDT [facility] Lymphocytes Absolute 0.60(L) 1.20 - 3.90 10*3/uL LAB HEMATOLOGY METHOD 11/24/2024 2:44 PM EDT [facility] Monocytes Absolute 0.03(L) 0.30 - 0.90 10*3/uL LAB HEMATOLOGY METHOD 11/24/2024 2:44 PM EDT [facility] Eosinophils Absolute 0.01 0.00 - 0.50 10*3/uL LAB HEMATOLOGY METHOD 11/24/2024 2:44 PM EDT [facility] Basophils Absolute 0.00 0.00 - 0.10 10*3/uL LAB HEMATOLOGY METHOD 11/24/2024 2:44 PM EDT [facility] Immature Granulocytes Absolute 0.00 0.00 [...] ORDERABLES Final Re sult [facility] [address] [place] [address] documented in this encounter Visit Diagnoses Diagnosis [...] documented as of this encounter Care Teams Pyrometallurgical Engineer Relationship Specialty Start Date End Date Zhao Harris MD [address] [place] [address] PCP - General 12/03/20 documented as of this encounter
--- OUTSIDE RECORDS SUMMARY | 2024-11-24 14:30 | XMS_ITS | Encounter Summary ---
Author Organization [facility] Address [address] [place] [address] Care Team Providers Care Record Searcher Name Role Phone Zhao Harris MD Primary Care Provider [phone] Encounter Details Date Type Department Care Team (Latest Contact Info) Description 11/24/2024 2:30 PM EDT - 11/24/2024 11:59 PM EDT Hospital Encounter [facility] Infusion Clinic [address] [place] [phone] Discharge Disposition: Home or Self Care Social [...] drink first t manav in the morning (EYE-PHYSICIAN PRACTICE MANAGER) to steady your nerves or to [...] 5 MG tabletIndications :Coronary artery disease involving [place] heart with angina pectoris, unspecified vessel or lesion type (CMS/HCC),Hyperte nsion, unspecified type Take 1 tablet (5 mg) by mouth daily. 90 tablet 3 09/11/2024 HYDROcodone-aceta minophen ([place]) 5-325 MG tablet Take 1 tablet by mouth every 6 hours as needed. 11/07/2024 levoFLOXacin (Levaquin) 500 MG tabletIndications :Myelodysplasia (myelodysplastic syndrome) (CMS/HCC) Take 1 tablet (500 mg) by mouth daily. 30 tablet 3 10/14/2024 nitroglycerin (Nitrostat) 0.4 MG SL tabletIndications :Coronary artery disease involving [place] heart with angina pectoris, unspecified vessel or [...] 2.5 MG tabletIndications :Coronary artery disease involving [place] heart with angina pectoris, unspecified vessel or [...] Appointment PAV A Interventional Radiology [address] [place] [address] 02/10/2025 8:30 AM EDT Clinical Support P[facility] Hematology/BMT and Cellular Therapy Program [address] [phone] 02/10/2025 9:00 AM EDT Office Visit P[facility] Hematology/BMT and Cellular Therapy Program [address] [phone] Elaina Boss, PA 800 [facility] [address] [place] [phone] 02/10/2025 10:30 AM EDT Appointment [facility] Infusion Clinic 1 [address] [place] [address] 02/11/2025 2:00 PM EDT Appointment [facility] Infusion Clinic 1 [address] [place] [address] 02/12/2025 2:00 PM EDT Appointment [facility] Infusion Clinic 1 [address] [place] [address] 02/13/2025 2:00 PM EDT Appointment [facility] Infusion Clinic 1 [address] [place] [address] 02/14/2025 2:00 PM EDT Appointment [facility] Infusion Clinic 1 [address] [place] [address] 03/10/2025 8:30 AM EDT Clinical Support P[facility] Hematology/BMT and Cellular Therapy Program [address] [phone] 03/10/2025 9:00 AM EDT Office Visit P[facility] Hematology/BMT and Cellular Therapy Program [address] [phone] Isaura Wynn, ESTRELLA 800 [facility] [address] [place] [phone] 03/10/2025 11:20 AM EDT Office Visit Pav CC Head, Neck & Respiratory 800 [facility], 2nd [place] [address] Elsa Razo, MEDICAL PRACTICE ADMINISTRATOR [address] [place] [address] documented as of this encounter Visit Diagnoses [...] documented as of this encounter Care Teams Record Searcher Relationship Specialty Start Date End Date Zhao Harris MD [address] [facility] [address], [place] [address] PCP - General 12/03/20 documented as of this encounter
--- OUTSIDE RECORDS SUMMARY | 2024-11-26 10:00 | XMS_ITS | Encounter Summary ---
Author Organization [facility] Address [address] [place] [address] Care Team Providers Care Turn Down Man Name Role Phone Zhao Harris MD Primary Care Provider [phone] Reason for Visit * Reason Comments Consult Encounter Details Date Type Department Care Team (Latest Contact Info) Description 11/26/2024 10:00 AM EDT Office Visit [facility] Interventional Radiology [address] [place] [address] Latoya Nunez N, TRAIN CLERK [address] [place] [address] Preop examination (Primary Dx) Social [...] drink first t manav in the morning (EYE-CATTLE FARMER) to steady your nerves or to get [...] today for consultation as requested by Isaura yWnn, regarding assessmentof vascular access Subjective History of [...] daily., Disp: 90 tablet, Rfl: 3 HYDROcodone-acetaminophen ([place]) 5-325 MG tablet, Take 1 tablet by [...] from the original note were not included. [address] Vascular Access Port Implantation Port implantation is [...] All prescription medicines, especially blood thinners ?? Setn-ukk-vzawnwi medicines such as aspirin or ibuprofen ?? [...] dislodged Last Reviewed Date: 2024 00:00:00 ?? [id number] [employer]. All rights reserved. This information is not intended as a substitute for professional medical care. Always follow your healthcare professional's instructions. documented in this encounter Plan of Treatment Upcoming Encounters Date Type Department Care Team ([facility] st Contact Info) Description 02/02/2025 11:00 AM EDT Appointment [facility] A Interventional Radiology [address] [place] [address] 02/10/2025 8:30 AM EDT Clinical Support [facility] Hematology/BMT and Cellular Therapy Program [address] [place] [phone] 02/10/2025 9:00 AM EDT Office Visit [facility] Hematology/BMT and Cellular Therapy Program [address] [place] [phone] Elaina Boss, PA 800 [facility] [address] [place] [phone] 02/10/2025 10:30 AM EDT Appointment [facility] Infusion [facility] 1 [address] [place] [address] 02/11/2025 2:00 PM EDT Appointment [facility] 1 [address] [place] [address] 02/12/2025 2:00 PM EDT Appointment [facility] 1 [address] [place] [address] 02/13/2025 2:00 PM EDT Appointment [facility] 1 [address] [place] [address] 02/14/2025 2:00 PM EDT Appointment [facility] 1 [address] [place] [phone] 03/10/2025 8:30 AM EDT Clinical Support [facility] Hematology/BMT and Cellular Therapy Program 750 [facility], [address] [place] [phone] 03/10/2025 9:00 AM EDT Office Visit [facility] Hematology/BMT and Cellular Therapy Program 750 [facility], [address] [place] [phone] Isaura Wynn, TRAIN CLERK 800 [facility] [address] [place] [phone] 03/10/2025 11:20 AM EDT Office Visit Pav CC Head, Neck & Respiratory 800 [facility], 2nd [place] [phone] Elsa Razo, TRAIN CLERK [address] [place] [phone] documented as of this encounter Results * Protime-INR (11/26/2024 10:51 AM EDT) [facility] Prothrombin Time 13.8 12.0 - 14.3 sec LAB COAGULATION METHOD 11/26/2024 11:52 AM EDT [facility] INR 1.1 0.9 - 1.1 LAB COAGULATION METHOD 11/26/2024 11:52 AM EDT [facility] Blood Venous blood specimen / Unknown Venipuncture / Unknown 11/26/2024 10:51 AM EDT 11/26/2024 10:51 AM EDT Narrative [facility] - 11/26/2024 11:52 AM EDT OPTIMAL INR RANGES FOR PATIENT ON ORAL ANTICOAGULANT THERAPY Prevention of venous thromboembolism INR 2.0 to 3.0 In patients with heart disease: Atrial fibrillation INR 2.0 to 3.0 Valvular heart disease INR 2.0 to 3.0 Tissue heart valves INR 2.0 to 3.0 Mechanical prosthetic valves INR 2.5 to 3.5 Prevention of recurrent [place] INR 2.5 to 3.5 us Latoya Stephanie Taylorstacyluca TRAIN CLERK LAB BLOOD ORDERABLES Final R esult [facility] [address] [place] [address] documented in this encounter Visit Diagnoses Diagnosis [...] documented as of this encounter Care Teams Turn Down Man Relationship Specialty Start Date End Date Zhao Harris MD [address] [place] [address] PCP - General 12/03/20 documented as of this encounter
--- OUTSIDE RECORDS SUMMARY | 2024-12-01 08:41 | XMS_ITS | Encounter Summary ---
Author Organization [facility] Address [address] [place] [address] Care Team Providers Care Vest Busheler Name Role Phone Zhao Harris MD Primary Care Provider [phone] Reason for Referral * Consultation (Routine) - Closed Specialty Diagnoses / Procedures Referred By Contact Referred To Contact Interventional Radiology Diagnoses Myelodysplasia (myelodysplastic syndrome) (CMS/HCC) Mckinley Lee MD [address] [place] [address] Phone: tel:[phone] fax:[phone] [facility] Vascular Interventional Radiology [address] [place] [address] Phone: tel: Referral ID Status Reason Start Date Expiration Date V isits Requested Visits Authorized [id number] Closed Specialty Services Required 12/01/2024 06/02/2026 1 1 * Imaging (Routine) - Closed Specialty Diagnoses / Procedures Referred By Justice mcgee Referred To Contact Radiology Diagnoses Myelodysplasia (myelodysplastic syndrome) (CMS/HCC) Procedures IR Port Placement 5+ Years Consult to Interventional Radiology Isaura Wynn APRN [address] [facility] [address] [place] [address] Phone: tel: fax: Referral ID Status Reason Start Date Expiration Date Visits Re quested Visits Authorized [id number] Closed 11/18/2024 05/20/2026 1 1 Reason for Visit * Imaging (Routine) - Closed Specialty Diagnoses / Procedures Referred By Justice mcgee Referred To Contact Radiology Diagnoses Myelodysplasia (myelodysplastic syndrome) (CMS/HCC) Procedures IR Port Placement 5+ Years Consult to Interventional Radiology Isaura Wynn APRN [address] [facility] [address] [place] [address] Phone: tel: fax: Referral ID Status Reason Start Date Expiration Date Visits Re quested Visits Authorized [id number] Closed 11/18/2024 05/20/2026 1 1 Encounter Details Date Type Department Care Team (Latest Contact Info) Description 12/01/2024 8:41 AM EDT - 12/01/2024 11:59 PM EDT Hospital Encounter [facility] A Interventional Radiology [address] [place] [address] Gela Singer Thrombocytopenia (CMS/HCC) (Primary Dx); Myelodysplasia [...] drink first t manav in the morning (EYE-PROFESSIONAL SKATER) to steady your nerves or to get [...] call: Vascular & Interventional Radiology Clinic at [phone] Sunday - Sunday 8:00 AM to 4:30 PM After hours, weekends, and holidays please call [phone] and ask for the Interventional Radiology provider/Resident on-call For Emergencies please go to the nearest Emergency Room or dial 911. Intervention Radiology Appointments: If you need to reschedule a procedure, please call our Schedulers at [phone], option 4. If you need to schedule or reschedule a clinic appointment, please call [phone]. [facility] Vascular and Interventional Radiology Clinic [facility] [address] [place] [address] documented in this encounter Medications at Time of Discharge acyclovir (Zovirax) 800 MG tabletIndications :Myelodysplasia (myelodysplastic syndrome) (CMS/HCC) Take 1 tablet (800 mg) by mouth in the morning and 1 tablet (800 mg) before bedtime. 60 tablet 3 10/14/2024 bisoprolol (Zebeta) 5 MG tabletIndications :Coronary artery disease involving [place] heart with angina pectoris, unspecified vessel or lesion type (CMS/HCC),Hyperte nsion, unspecified type Take 1 tablet (5 mg) by mouth daily. 90 tablet 3 09/11/2024 HYDROcodone-aceta minophen (Wren) 5-325 MG tablet Take 1 tablet by mouth every 6 hours as needed. 11/07/2024 hydrocortisone 2.5 % cream Apply 1 Application topically as needed for rash. 20 g 12/09/2024 levoFLOXacin (Levaquin) 500 MG tabletIndications :Myelodysplasia (myelodysplastic syndrome) (CMS/HCC) Take 1 tablet (500 mg) by mouth daily. 30 tablet 3 10/14/2024 nitroglycerin (Nitrostat) 0.4 MG SL tabletIndications :Coronary artery disease involving [place] heart with angina pectoris, unspecified vessel or [...] 2.5 MG tabletIndications :Coronary artery disease involving [place] heart with angina pectoris, unspecified vessel or [...] be flushed every 4 weeks. Call the [facility] Hematology Program Clinic if this is not set up. ?? What is used to flush it? It will be flushed with NS and Heparin flush. ?? Where will this happen? Either home health will come to you or you will go to the Infusion Center or the [facility]. Here is some contact information about [...] Radiology Brief Postprocedure Note Attending: Dr. Lee Assurance Associate: Dr. Hernandez Pre-operative Diagnosis: AML, need for [...] been discussed with the patient and/or their banking representative. All questions answered and they agree [...] daily., Disp: 90 tablet, Rfl: 3 HYDROcodone-acetaminophen (Wren) 5-325 MG tablet, Take 1 tablet by [...] Upcoming Encounters Date Type Department Care Team ([facility] st Contact Info) Description 02/02/2025 11:00 AM EDT Appointment P[facility] A Interventional Radiology [address] [place] [address] 02/10/2025 8:30 AM EDT Clinical Support P[facility] Hematology/BMT and Cellular Therapy Program [address] [address] 02/10/2025 9:00 AM EDT Office Visit [facility] Hematology/BMT and Cellular Therapy Program [address] [place] [address] Elaina Boss, ARAM 800 [facility] [address] [address] 02/10/2025 10:30 AM EDT Appointment [facility] Infusion Clinic 1 [address] [place] [address] 02/11/2025 2:00 PM EDT Appointment [facility] Infusion Clinic 1 [address] [place] [address] 02/12/2025 2:00 PM EDT Appointment [facility] Infusion Clinic 1 [address] [place] [address] 02/13/2025 2:00 PM EDT Appointment [facility] Infusion Clinic 1 [address] [place] [address] 02/14/2025 2:00 PM EDT Appointment [facility] Infusion Clinic 1 [address] [place] [address] 03/10/2025 8:30 AM EDT Clinical Support [facility] Hematology/BMT and Cellular Therapy Program 750 [facility] [place] [place] [address] 03/10/2025 9:00 AM EDT Office Visit [facility] Hematology/BMT and Cellular Therapy Program 750 [facility] [place] [address] Isaura Wynn, TESTER OPERATOR HELPER 800 [facility] [address] [place] [address] 03/10/2025 11:20 AM EDT Office Visit Pav Head, Neck & Respiratory 800 [facility], 2nd [place] [address] Elsa Razo, TESTER OPERATOR HELPER [address] [place] [address] Scheduled Referrals Name Type Priority Associated Diagnoses Order Schedule Discharge Ambulatory referral to [facility] Outpatient Referral Routine Myelodysplasia (myelodysplastic syndrome) [...] for port placement. New AML, starting chemotherapy. Scrap Kettle Tender: Mckinley Lee MD Secondary Clinical Specialist Vascular: Dr. David Holt Rad Dose: 6 mGy [...] was placed supine on the fluoro table. Computer Help Desk Specialist ultrasonography revealed the vein to be compressible [...] with no evidence of complication. Device: 6 Bengali port catheter cut to length of 25 cm. COMPARISON: None. FINDINGS: Patent R IJV COMPLICATION: No. Procedure Note Mckinley Lee MD - 12/02/2024 CLINICAL INDICATION: 69M here for port placement. New AML, starting chemotherapy. Scrap Kettle Tender: Mckinley Lee MD Secondary Clinical Specialist Vascular: Dr. David Holt Rad Dose: 6 mGy [...] patient was placed supine on the fluoro table.Computer Help Desk Specialist ultrasonography revealed the vein to be compressible [...] well with no evidence ofcomplication. Device: 6 Bengali port catheter cut to length of 25 [...] MD on 12/02/2024 7:02 AM Isaura Wynn TESTER OPERATOR HELPER IMG IR PROCEDURES Final Result * [...] ORDERAB LES Final Result BLOOD BANK [address] [place] [address], * (ABNORMAL) WBC Differential (12/01/2024 9:39 AM EDT) Differential Type Automated LAB HEMATOLOGY METHOD 12/01/2024 11:33 AM EDT [facility] Neutrophils % 9 % LAB HEMATOLOGY METHOD 12/01/2024 11:33 AM EDT [facility] Lymphocytes % 84 % LAB HEMATOLOGY METHOD 12/01/2024 11:33 AM EDT [facility] Monocytes % 6 % LAB HEMATOLOGY METHOD 12/01/2024 11:33 AM EDT [facility] Eosinophils % 1 % LAB HEMATOLOGY METHOD 12/01/2024 11:33 AM EDT [facility] Basophils % 0 % LAB HEMATOLOGY METHOD 12/01/2024 11:33 AM EDT [facility] Immature Granulocytes % 0 % LAB HEMATOLOGY METHOD 12/01/2024 11:33 AM EDT [facility] Immature Granulocytes Absolute 0.00 0.00 - 0.06 10*3/uL LAB HEMATOLOGY METHOD 12/01/2024 11:33 AM EDT [facility] Neutrophils Absolute 0.06(LL) 1.60 - 6.10 10*3/uL LAB HEMATOLOGY METHOD 12/01/2024 11:33 AM EDT [facility] Lymphocytes Absolute 0.59(L) 1.20 - 3.90 10*3/uL LAB HEMATOLOGY METHOD 12/01/2024 11:33 AM EDT [facility] Monocytes Absolute 0.04(L) 0.30 - 0.90 10*3/uL LAB HEMATOLOGY METHOD 12/01/2024 11:33 AM EDT [facility] Basophils Absolute 0.00 0.00 - 0.10 10*3/uL LAB HEMATOLOGY METHOD 12/01/2024 11:33 AM EDT [facility] Eosinophils Absolute 0.01 0.00 - 0.50 10*3/uL LAB HEMATOLOGY METHOD 12/01/2024 11:33 AM EDT [facility] Blood Venous blood specimen / Unknown Venipuncture / Unknown 12/01/2024 9:39 AM EDT 12/01/2024 9:56 AM EDT us Virgen Vargas MD LAB BLOOD ORDERABLES Final Re sult [facility] [address] [place] [address] * (ABNORMAL) CBC (12/01/2024 9:39 AM EDT) WBC Count 0.64(LL) 3.70 - 10.30 10*3/uL LAB HEMATOLOGY METHOD 12/01/2024 4:21 PM EDT [facility] RBC Count 2.29(L) 4.60 - 6.10 10*6/uL LAB HEMATOLOGY METHOD 12/01/2024 4:21 PM EDT [facility] HGB 7.6(L) 13.7 - 17.5 g/dL LAB HEMATOLOGY METHOD 12/01/2024 4:21 PM EDT [facility] HCT 20.9(L) 40.0 - 51.0 % LAB HEMATOLOGY METHOD 12/01/2024 4:21 PM EDT [facility] Platelet Count 14(LL) 155 - 369 10*3/uL LAB HEMATOLOGY METHOD 12/01/2024 4:21 PM EDT [facility] MCV 91 79 - 98 fL LAB HEMATOLOGY METHOD 12/01/2024 4:21 PM EDT [facility] MCH 33.2(H) 26.0 - 32.0 pg LAB HEMATOLOGY METHOD 12/01/2024 4:21 PM EDT [facility] MCHC 36.4(H) 30.7 - 35.5 g/dL LAB HEMATOLOGY METHOD 12/01/2024 4:21 PM EDT [facility] RDW 17.7(H) 11.5 - 14.5 % LAB HEMATOLOGY METHOD 12/01/2024 4:21 PM EDT [facility] MPV LAB HEMATOLOGY METHOD 12/01/2024 4:21 PM EDT [facility] Comment:Not Measured nRBC 0.0 <=0.0 per 100 WBCs LAB HEMATOLOGY METHOD 12/01/2024 4:21 PM EDT [facility] Blood Venous blood specimen / Unknown Venipuncture / Unknown 12/01/2024 9:39 AM EDT 12/01/2024 9:56 AM EDT Mckinley Lee MD LAB BLOOD ORDERABLES Final R esult Performing Organization Address City/[facility]/ZIP Co de Phone Number [facility] [address] [place] [address] * Prepare Leukocyte Reduced Platelets: 1 Units, Irradiated (12/01/2024 8:52 AM EDT) [facility] Product Code [id number] BLOO D BANK Dispense Status Transfused BLOOD BANK Blood Expiration Date [id number] BLOOD BANK Unit Number [id number] B LOOD BANK Product Blood Type 6200 BLOOD BANK Blood Type A+ BLOOD BANK Blood Venous blood specimen / Unknown Mckinley Lee MD BLOOD BANK PRODUCT ORDERABLE S Final Result Performing Organization Address City/[facility] Co de Phone Number BLOOD BANK [address] documented in this encounter Visit Diagnoses [...] mL Right Neck lidocaine-EPINEPHrine (Xylocaine W/EPI) 1 %-1:433776 injection As needed, Starting on Sun12/01/24 at [...] documented as of this encounter Care Teams Vest Busheler Relationship Specialty Start Date End Date Zhao Harris MD [address] [place] [address] [place] [address] PCP - General 12/03/20 documented as of this encounter
--- OUTSIDE RECORDS SUMMARY | 2024-12-09 08:30 | XMS_ITS | Encounter Summary ---
Author Organization [facility] Address [address] [place] [address] Care Team Providers Care Transmission Rebuilder Name Role Phone Zhao Harris MD Primary Care Provider [phone] Reason for Visit * Reason Comments Labs Nurse Visit Encounter Details Date Type Department Care Team ([facility] Contact Info) Description 12/09/2024 8:30 AM EDT Clinical Support [facility] Hematology/BMT and Cellular Therapy Program [address] [place] [address] [place] [address] Social History Tobacco Use Types Packs/Day Years [...] drink first t manav in the morning ([employer] MACHINE MECHANIC SUPERVISOR) to steady your nerves or to [...] Upcoming Encounters Date Type Department Care Team ([facility] st Contact Info) Description 02/02/2025 11:00 AM EDT Appointment [facility] A Interventional Radiology [address] [place] [address] 02/10/2025 8:30 AM EDT Clinical Support [facility] Hematology/BMT and Cellular Therapy Program [address] [phone] 02/10/2025 9:00 AM EDT Office Visit [facility] Hematology/BMT [facility] Cellular Therapy Program [address] [address] Elaina Boss, PA 800 [facility] [address] [place] [phone] 02/10/2025 10:30 AM EDT Appointment [facility] [address] [place] [address] 02/11/2025 2:00 PM EDT Appointment [facility] [address] [place] [address] 02/12/2025 2:00 PM EDT Appointment [facility] [address] [place] [address] 02/13/2025 2:00 PM EDT Appointment [facility] [address] [place] [address] 02/14/2025 2:00 PM EDT Appointment [facility] [address] [place] [address] 03/10/2025 8:30 AM EDT Clinical Support [facility] Hematology/BMT and Cellular Therapy Program [address] [place] [phone] 03/10/2025 9:00 AM EDT Office Visit [facility] Hematology/BMT and Cellular Therapy Program 750 [facility] [place] [phone] Isaura Wynn, IT SOFTWARE DEVELOPER 800 [facility] [address] [place] [address] 03/10/2025 11:20 AM EDT Office Visit [facility] Head[facility] Ne[facility] Res[facility] [address] [facility], [address] [place] [phone] Elsa Razo, IT SOFTWARE DEVELOPER [address] [place] [phone] documented as of this encounter Visit Diagnoses [...] documented as of this encounter Care Teams Transmission Rebuilder Relationship Specialty Start Date End Date Zhao Harris MD [address] [place] [id number] PCP - General 12/03/20 documented as of this encounter
--- OUTSIDE RECORDS SUMMARY | 2024-12-09 09:00 | XMS_ITS | Encounter Summary ---
Author Organization [facility] Address [address] [place] [address] Care Team Providers Care Personal Finance Instructor Name Role Phone Zhao Harris MD Primary Care Provider + [phone] Reason for Visit * Reason Comments Procedure * Genetic Testing (Routine) - Authorized Specialty Diagnoses / Procedures Referred By Justice mcgee Referred To Contact Lab Diagnoses Myelodysplasia (myelodysplastic syndrome) (CMS/HCC) Procedures Leukemia/Lymphoma - Immunophenotyping by Flow Cytometry Virgen Vargas MD 800 [facility] Cancer [address] [address] Phone: tel: fax: Referral ID Status Reason Start Date Expiration Date V isits Requested Visits Authorized [id number] Authorized 11/18/2024 05/20/2026 1 1 Encounter Details Date Type Department Care Team (Latest Contact Info) Description 12/09/2024 9:00 AM EDT Procedure Visit PAV CC Hematology/BMT and Cellular Therapy Program [address] [place] [address] Kierra Novak APRN [address] [facility] Cancer [address] [address] Myelodysplasia (myelodysplastic syndrome) (CMS/HCC) Social [...] drink first t manav in the morning (EYE-SOFTWARE SOLUTIONS ARCHITECT) to steady your nerves or to [...] yes Risks discussed: Bleeding, infection and pain [place] protocol: Procedure explained and questions answered to [...] Department Care Team ([facility] Contact Info) Description 02/02/2025 11:00 AM EDT Appointment PAV [facility] Interventional Radiology [address] [place] [address] 02/10/2025 8:30 AM EDT Clinical Support PAV Hematology/BMT and Cellular Therapy Program [address] [address] 02/10/2025 9:00 AM EDT Office Visit PAV Hematology/BMT and Cellular Therapy Program [address] [address] Elaina Boss PA 800 [facility] [address] [place] [phone] 02/10/2025 10:30 AM EDT Appointment [facility] 1 [address] [place] [address] 02/11/2025 2:00 PM EDT Appointment [facility] Infusion Clinic 1 [address] [place] [address] 02/12/2025 2:00 PM EDT Appointment [facility] Infusion Clinic 1 [address] [place] [address] 02/13/2025 2:00 PM EDT Appointment [facility] Infusion [facility] 1 [address] [place] [address] 02/14/2025 2:00 PM EDT Appointment [facility] Infusion [facility] 1 [address] [place] [address] 03/10/2025 8:30 AM EDT Clinical Support PAV Hematology/BMT and Cellular Therapy Program [address] [place] [phone] 03/10/2025 9:00 AM EDT Office Visit PAV Hematology/BMT and Cellular Therapy Program [address] [address] Isaura Wynn, BILLET SHEARER 800 [facility] [address] [place] [phone] 03/10/2025 11:20 AM EDT Office Visit Pav CC Head, Neck & Respiratory 800 [facility], 2nd [place] [address] Elsa Razo, BILLET SHEARER [address] [place] [address] documented as of this encounter Procedures Procedure Name Priority Date/Time Associated Diagnosis Comments CYTOGENETICS TESTING, ONCOLOGY Routine 12/09/2024 10:15 AM EDT Myelodysplasia (myelodysplastic syndrome) ([facility]/HCC) CHROMOSOME KARYOTYPE, ONCOLOGY Routine 12/09/2024 10:15 AM EDT Myelodysplasia (myelodysplastic syndrome) ([facility]/HCC) LEUKEMIA/LYMPHOMA - IMMUNOPHENOTYPING BY FLOW CYTOMETRY Routine [...] Type Bone Marrow 12/16/2024 5:59 PM EDT [facility] Clinical Indication Acute Myeloid Leukemia 12/16/2024 5:59 PM EDT [facility] Specimen Adequacy Adequate 025 5:59 PM EDT [facility] Chromosome Analysis Result Giemsa-banded metaphase cells from unstimulated bone marrow cultures showed the following chromosome pattern: 43~45,X,-Y,t(4;1 4)(q21;q32),add( 5)(q13),add(16)( q11.2),-17,add(2 0)(q11.2)[cp13]/ 46,XY[7] 12/16/2024 5:59 PM EDT [facility] Interpretation Abnormal male chromosome analysis. [...] were observed on this patient's previous specimen [id number] and indicate persistent disease. Clinical correlation is recommended. Note: Per [employer] (CAP) requirement additional karyotypes were performed and charged due to the presence of clonal abnormalities. # cells counted = 20 # cells analyzed = 20 # cells karyotyped = 3 Band resolution: 400 12/16/2024 5:59 PM EDT [facility] Pathologist Signature Reviewed by: Mesfin Rae 12/16/2024 5:59 PM EDT [facility] Bone Marrow Non-blood Collection / Unknown 12/09/2024 10:15 AM EDT 12/09/2024 12:48 PM EDT us Virgen Vargas MD LAB CYTOGENETICS ORDERABLES F inal Result [facility] [address] [place] [address] * Leukemia/Lymphoma - Immunophenotyping by Flow Cytometry (12/09/2024 10:15 AM EDT) Clinical Indication AML 12/10/2024 8:51 AM [facility] Flow Cytometry Interpretation APPROXIMATELY 23% POPULATION OF [...] light chains, CD123 12/10/2024 8:51 AM [facility] Disclaimer This test was developed and its [...] on the report. 12/10/2024 8:51 AM EDT [facility] Pathologist Signature Reviewed by: Gerry Jensen MD 12/10/2024 8:51 AM EDT [facility] MRD Indicated Test Not Indicated 8:51 AM EDT [facility] Bone Marrow Specimen from bone marrow obtained by aspiration / Unknown Non-blood Collection / Unknown 12/09/2024 10:15 AM EDT 12/09/2024 11:28 AM EDT us Virgen Vargas MD LAB FLOW CYTOMETRY ORDERABLES Final Result [facility] [address] [place] [address] * Bone marrow exam (12/09/2024 10:15 AM EDT) Case Report Bone Marrow Case: [id number] Authorizing Provider: Virgen Vargas MD Collected: 12/09/2024 1015 Ordering Location: [facility] Hematology/BMT and Received: 12/09/2024 1145 Cellular Therapy Program Pathologist: Gerry Jensen MD Specimens: A) - Bone Marrow Aspirate, right B) - Bone Marrow Biopsy, right C) - Peripheral Blood for Bone Marrow 12/19/2024 5:35 PM EDT [facility] Cytogenetics Report, Addendum Chromosome Analysis [...] were observed on this patient's previous specimen [id number] and indicate persistent disease. 12/19/2024 5:35 PM [...] s/p cycle 2 12/19/2024 5:35 PM EDT [facility] CBC and Differential PERIPHERAL BLOOD: [...] Platelets are decreased. 12/19/2024 5:35 PM EDT [facility] Bone Marrow Differential BONE MARROW DIFFERENTIAL: 400 cells Normal Patient Neutrophils 15-50 0 Metamyelocytes 4-19 0 Myelocytes 1-18 1 Promyelocytes 1-8 0 Blasts 0-2 14 Monocytes 0-5 3 Erythroid 16-38 76 Lymphocytes 3-24 1 Eosinophils 0-6 0 Basophils 0-2 0 Plasma cells 0-4 5 Other 12/19/2024 5:35 PM EDT [facility] Aspirate Smear The bone marrow [...] predominantly normal morphology. 12/19/2024 5:35 PM T [facility] Core Biopsy The core biopsy is small and shows 5 mm of a normocellular bone marrow with a cellularity of approximately 30% that is predominantly comprised of erythroid precursors. Erythropoiesis is left-shifted, but maturing. Maturing granulopoiesis is virtually absent. Myeloid cells almost entirely consists of immature precursors. Megakaryocytes are decreased and exhibit predominantly normal morphology. 12/19/2024 5:35 PM T [facility] Flow Cytometry Interpretation Flow cytometric analysis shows approximately 23% population of CD34 positive myeloid blasts expressing CD34, CD117, CD13, CD33, HLA-DR, partial CD7, variable CD123, partial CD38, and moderate CD45 ([id number]). 12/19/2024 5:35 PM EDT [facility] Gross Description B. RIGHT A [...] - Final [facility] [address] [place] [address] * BIOPSY BONE MARROW (12/09/2024 10:00 AM EDT) Narrative Kierra Novak APRN - 12/09/2024 10:00 AM EDT Kierra Novak APRN 12/09/2024 12:08 PM Biopsy bone marrow Date/Time: 12/09/2024 10:00 AM Performed by: Kierra Novak APRN Authorized by: Kierra Novak APRN Consent: Consent obtained: Written Consent given by: Patient Risks, benefits, and alternatives were discussed: yes Risks discussed: Bleeding, infection and pain [place] protocol: Procedure explained and questions answered to [...] Tolerated well, no immediate complications Kierra Novak BILLET SHEARER IN CLINIC/BEDSIDE ORDERAB LES Final Result * [...] ORDERABLE S Final Result Performing Organization Address [facility] Co de Phone Number BLOOD BANK [address] [place] [address] * Morphology (12/09/2024 8:45 AM EDT) Elliptocytes/ Ovalocytes Present LAB HEMATOLOGY METHOD 12/09/2024 11:45 AM EDT [facility] RBC Morphology Slide Reviewed LAB HEMATOLOGY METHOD 12/09/2024 11:45 AM EDT [facility] Platelet Estimate Platelet smear estimate consistent with automated count LAB HEMATOLOGY METHOD 12/09/2024 11:45 AM EDT [facility] Blood Venous blood specimen / Unknown Venipuncture / Unknown 12/09/2024 8:45 AM EDT 12/09/2024 8:56 AM EDT Virgen Vargas MD LAB BLOOD ORDERABLES Final Re sult [facility] [address] [place] [address], [place] [address] * (ABNORMAL) Manual Differential (12/09/2024 8:45 AM [...] LAB HEMATOLOGY METHOD 12/09/2024 11:45 AM EDT [facility] Eosinophils Absolute 0.00 0.00 - 0.50 10*3/uL LAB HEMATOLOGY METHOD 12/09/2024 11:45 AM EDT [facility] Basophils Absolute 0.00 0.00 - 0.10 10*3/uL LAB HEMATOLOGY METHOD 12/09/2024 11:45 AM EDT [facility] Blood Venous blood specimen / Unknown Venipuncture / Unknown 12/09/2024 8:45 AM EDT 12/09/2024 8:56 AM EDT Virgen Vargas MD LAB BLOOD ORDERABLES Final Re sult Performing Organization Address City/[facility]/ZIP Co de Phone Number [facility] [address] [place] [address] * Peripheral blood smear, pathologist interpretation (12/09/2024 8:45 AM EDT) Clinical Diagnosis, Peripheral Smear AML under therapy LAB HEMATOLOGY METHOD 12/09/2024 11:39 AM EDT [facility] Interpretation , Peripheral Smear Pancytopenia with rare circulating blast. A resident was involved in the service. I attest I examined the relevant preparations for the specimens and confirmed the diagnosis or interpretation. 12/09/2024 11:39 AM EDT [facility] Pathologist Signature, Peripheral Smear 12/09/2024 11:39 AM EDT [facility] Comment:Reviewed by: Martha Lopez MD LAB CP ASR DISCLAIMER Yes 12/09/2024 11:39 AM EDT [facility] Blood Venous blood specimen / Unknown Venipuncture / Unknown 12/09/2024 8:45 AM EDT 12/09/2024 8:56 AM EDT Virgen Vargas MD LAB PATHOLOGY ORDERABLES Terri l Result Performing Organization Address City/[facility]/ZIP Co de Phone Number [facility] [address] [place] [address] * (ABNORMAL) Comprehensive metabolic panel (12/09/2024 8:45 [...] Re sult [facility] [address] [place] [address] * (ABNORMAL) CBC and differential (12/09/2024 8:45 AM EDT) WBC Count 0.68(LL) 3.70 - 10.30 10*3/uL LAB HEMATOLOGY METHOD 12/09/2024 11:45 AM EDT [facility] RBC Count 2.34(L) 4.60 - 6.10 10*6/uL LAB HEMATOLOGY METHOD 12/09/2024 11:45 AM EDT [facility] HGB 7.5(L) 13.7 - 17.5 g/dL LAB HEMATOLOGY METHOD 12/09/2024 11:45 AM EDT [facility] HCT 20.6(L) 40.0 - 51.0 % LAB HEMATOLOGY METHOD 12/09/2024 11:45 AM EDT [facility] Platelet Count 24(L) 155 - 369 10*3/uL LAB HEMATOLOGY METHOD 12/09/2024 11:45 AM EDT [facility] MCV 88 79 - 98 fL LAB HEMATOLOGY METHOD 12/09/2024 11:45 AM EDT [facility] MCH 32.1(H) 26.0 - 32.0 pg LAB HEMATOLOGY METHOD 12/09/2024 11:45 AM EDT [facility] MCHC 36.4(H) 30.7 - 35.5 g/dL LAB HEMATOLOGY METHOD 12/09/2024 11:45 AM EDT [facility] RDW 17.1(H) 11.5 - 14.5 % LAB HEMATOLOGY METHOD 12/09/2024 11:45 AM EDT [facility] MPV 9.2 8.8 - [...] MD LAB BLOOD ORDERABLES Final Re sult [facility] [address] [place] [address] documented in this encounter Visit Diagnoses Diagnosis [...] documented as of this encounter Care Teams Personal Finance Instructor Relationship Specialty Start Date End Date Zhao Harris MD [address] [place] [address] PCP - General 12/03/20 documented as of this encounter
--- OUTSIDE RECORDS SUMMARY | 2024-12-09 13:30 | XMS_ITS | Encounter Summary ---
Author Organization [facility] Address [address] [place] [address] Care Team Providers Care Mobility Manager Name Role Phone Zhao Harris MD Primary Care Provider [phone] Reason for Visit * Reason Comments Follow-up Encounter Details Date Type Department Care Team (Latest Contact Info) Description 12/09/2024 1:30 PM EDT Clinical Support [facility] 800 [facility], 2nd [place] [phone] Myelodysplasia (myelodysplastic syndrome) (CMS/HCC) (Primary Dx); Thrombocytopenia [...] drink first t manav in the morning (EYE-FAMILY PARTNER) to steady your nerves or to get [...] Appointment [facility] A Interventional Radiology [address] [place] [address] 02/10/2025 8:30 AM EDT Clinical Support [facility] Hematology/BMT and Cellular Therapy Program [address] [place] [address] 02/10/2025 9:00 AM EDT Office Visit [facility] Hematology/BMT and Cellular Therapy Program [address] [place] [address] Elaina Boss, PA 800 [facility] [address] [place] [phone] 02/10/2025 10:30 AM EDT Appointment [facility] 1 [address] [place] [address] 02/11/2025 2:00 PM EDT Appointment [facility] 1 [address] [place] [phone] 02/12/2025 2:00 PM EDT Appointment [facility] 1 [address] [place] [phone] 02/13/2025 2:00 PM EDT Appointment [facility] 1 [address] [place] [address] 02/14/2025 2:00 PM EDT Appointment [facility] 1 [address] [place] [phone] 03/10/2025 8:30 AM EDT Clinical Support [facility] H[facility]ology[facility]BMT [facility] Cellular Therapy Program [address] [place] [address] 03/10/2025 9:00 AM EDT Office Visit [facility] Hematology/BMT and Cellular Therapy Program [address] [place] [address] Isaura Wynn, CASE MANAGEMENT COORDINATOR 800 [facility] [address] [place] [phone] 03/10/2025 11:20 AM EDT Office Visit Pav Head, Neck & Respiratory 800 [facility], 2nd [place] [address] Elsa Razo, CASE MANAGEMENT COORDINATOR 800 [place] [address] documented as of this encounter Procedures Procedure Name Priority Date/Time Associated Diagnosis Comments PREPARE RBC Routine 12/09/2024 1:17 PM EDT Myelodysplasia (myelodysplastic syndrome) (CMS/HCC) Thrombocytopenia (CMS/HCC) documented in this encounter Results * Transfuse RBC, Irradiated (12/09/2024 3:57 PM EDT) us Kayli CHIU BLOOD TRANSFUSION ORDERA BLES Final Result * Prepare Leukocyte Reduced RBC: 1 Units, Irradiated (12/09/2024 1:17 PM EDT) Product Code [id number] CH BLOO D BANK Dispense Status Transfused BLOOD BANK Blood Expiration Date [id number] BLOOD BANK Unit Number [id number] B LOOD BANK Product Blood Type 9500 BLOOD BANK Blood Type O- BLOOD BANK Crossmatch Compatible BLOOD BANK Other Kayli CHIU BLOOD BANK PRODUCT ORDER VIKAS Final Result BLOOD BANK [address] documented in this encounter Visit Diagnoses [...] documented as of this encounter Care Teams Mobility Manager Relationship Specialty Start Date End Date Zhao Harris MD [facility]0 [place] [address] PCP - General 12/03/20 documented as of this encounter
--- OUTSIDE RECORDS SUMMARY | 2024-12-11 08:30 | XMS_ITS | Encounter Summary ---
Author Organization [facility] Address [address] [place] [address] Care Team Providers Care Orthodontic Technician Assistant Name Role Phone Zhao Harris MD Primary Care Provider [phone] Reason for Visit * Reason Comments Nurse Visit Labs Encounter Details Date Type Department Care Team (Latest Contact Info) Description 12/11/2024 8:30 AM EDT Clinical Support [facility] CC Hematology/BMT and Cellular Therapy Program [address] [place] [address] [place] [address] Myelodysplasia (myelodysplastic syndrome) (CMS/HCC) Social History Tobacco [...] drink first t manav in the morning (EYE-RIVETING MACHINE OPERATOR TAPE CONTROL) to steady your nerves or to get [...] Upcoming Encounters Date Type Department Care Team ([facility] st Contact Info) Description 02/02/2025 11:00 AM EDT Appointment PAV A Interventional Radiology [address] [place] [address] 02/10/2025 8:30 AM EDT Clinical Support P[facility] Hematology/BMT and Cellular Therapy Program [address] [address] 02/10/2025 9:00 AM EDT Office Visit PAV Hematology/BMT and Cellular Therapy Program [address] [address] Elaina Boss, PA 800 [facility] [address] [place] [phone] 02/10/2025 10:30 AM EDT Appointment [facility] Infusion [facility] [address] [place] [address] 02/11/2025 2:00 PM EDT Appointment [facility] 1 [address] [place] [address] 02/12/2025 2:00 PM EDT Appointment [facility] [address] [place] [address] 02/13/2025 2:00 PM EDT Appointment [facility] [address] [place] [address] 02/14/2025 2:00 PM EDT Appointment [facility] [address] [place] [address] 03/10/2025 8:30 AM EDT Clinical Support P[facility] CC Hematology/BMT and Cellular Therapy Program 750 [facility] [place] [phone] 03/10/2025 9:00 AM EDT Office Visit PAV Hematology/BMT and Cellular Therapy Program 750 [facility], [address] [place] [address] Isaura Wynn, AGRICULTURE LABORATORY TECHNICIAN 800 [facility] [address] [place] [phone] 03/10/2025 11:20 AM EDT Office Visit Pav CC Head, Neck & Respiratory 800 [facility], [address] [place] [address] Elsa Razo, AGRICULTURE LABORATORY TECHNICIAN [address] [place] [phone] documented as of this encounter Procedures Procedure [...] LAB HEMATOLOGY METHOD 12/11/2024 10:53 AM EDT [facility] RBC Morphology Slide Reviewed LAB HEMATOLOGY METHOD 12/11/2024 10:53 AM EDT [facility] Platelet Estimate Platelet smear estimate consistent with automated count LAB HEMATOLOGY METHOD 12/11/2024 10:53 AM EDT [facility] Blood Venous blood specimen / Unknown Venipuncture / Unknown 12/11/2024 8:38 AM EDT 12/11/2024 8:50 AM EDT Virgen Vargas MD LAB BLOOD ORDERABLES Final Re sult Performing Organization Address City/[facility]/ZIP Co de Phone Number [facility] [address] [place] [address] * Peripheral blood smear, pathologist interpretation (12/11/2024 8:38 AM EDT) Clinical Diagnosis, Peripheral Smear 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 Dysplastic neutrophils (hypogranular) are noted. Moderate anemia and marked thrombocytopen ia. 12/11/2024 4:46 PM EDT [facility] Pathologist Signature, Peripheral Smear 12/11/2024 4:46 PM EDT [facility] Comment:Reviewed by: Omar Peralta MD Blood Venous blood specimen / Unknown Venipuncture / Unknown 12/11/2024 8:38 AM EDT 12/11/2024 8:50 AM EDT Virgen Vargas MD LAB PATHOLOGY ORDERABLES Terri l Result Performing Organization Address City/[facility]/ZIP Co de Phone Number [facility] [address] [place] [address] * (ABNORMAL) Manual Differential (12/11/2024 8:38 AM EDT) Blasts % 1 % LAB HEMATOLOGY METHOD 12/11/2024 10:53 AM EDT [facility] Promyelocytes % 0 % LAB [...] LAB HEMATOLOGY METHOD 12/11/2024 10:53 AM EDT [facility] Promyelocytes Absolute 0.00 10*3/uL LAB HEMATOLOGY METHOD 12/11/2024 10:53 AM EDT [facility] Myelocytes Absolute 0.00 10*3/uL LAB [...] LAB HEMATOLOGY METHOD 12/11/2024 10:53 AM EDT [facility] Blood Venous blood specimen / Unknown Venipuncture / Unknown 12/11/2024 8:38 AM EDT 12/11/2024 8:50 AM EDT us Virgen Vargas MD LAB BLOOD ORDERABLES Final Re sult [facility] [address] [place] [address] * (ABNORMAL) CBC and differential (12/11/2024 8:38 AM EDT) WBC Count 0.61(LL) 3.70 - 10.30 10*3/uL LAB HEMATOLOGY METHOD 12/11/2024 10:54 AM EDT [facility] RBC Count 2.80(L) 4.60 - 6.10 10*6/uL LAB HEMATOLOGY METHOD 12/11/2024 10:54 AM EDT [facility] HGB 8.9(L) 13.7 - 17.5 g/dL LAB HEMATOLOGY METHOD 12/11/2024 10:54 AM EDT [facility] HCT 25.1(L) 40.0 - 51.0 % LAB HEMATOLOGY METHOD 12/11/2024 10:54 AM EDT [facility] Platelet Count 11(LL) 155 - 369 10*3/uL LAB HEMATOLOGY METHOD 12/11/2024 10:54 AM EDT [facility] MCV 90 79 - 98 fL LAB HEMATOLOGY METHOD 12/11/2024 10:54 AM EDT [facility] MCH 31.8 26.0 - 32.0 pg LAB HEMATOLOGY METHOD 12/11/2024 10:54 AM EDT [facility] MCHC 35.5 30.7 - 35.5 g/dL LAB HEMATOLOGY METHOD 12/11/2024 10:54 AM EDT [facility] RDW 16.2(H) 11.5 - 14.5 % LAB HEMATOLOGY METHOD 12/11/2024 10:54 AM EDT [facility] MPV 12.3 8.8 - 12.5 fL LAB HEMATOLOGY METHOD 12/11/2024 10:54 AM EDT [facility] nRBC 4.9(H) <=0.0 per 100 WBCs LAB HEMATOLOGY METHOD 12/11/2024 10:54 AM EDT [facility] Differential Type Manual LAB HEMATOLOGY METHOD 12/11/2024 10:54 AM EDT [facility] Blood Venous blood specimen / [...] MD LAB BLOOD ORDERABLES Final Re sult [facility] [address] [place] [address] * (ABNORMAL) Comprehensive Metabolic Panel, Plasma (12/11/2024 8:38 AM EDT) Glucose, Plasma 105(H) 74 - 99 mg/dL 12/11/2024 9:19 AM EDT [facility] BUN, Plasma 10 8 - 23 mg/dL 12/11/2024 9:19 AM EDT [facility] Creatinine, Plasma 0.75 0.70 - 1.20 mg/dL 12/11/2024 9:19 AM EDT [facility] BUN/Creatinine Ratio 13 12/11/2024 9:19 AM EDT [facility] Sodium, Plasma 140 136 - 145 mmol/L 12/11/2024 9:19 AM EDT [facility] Potassium, Plasma 4.1 3.6 - 4.9 mmol/L 12/11/2024 9:19 AM EDT [facility] Chloride, Plasma 110(H) 97 - 107 mmol/L 12/11/2024 9:19 AM EDT [facility] CO2, Plasma 22 22 - 29 mmol/L 12/11/2024 9:19 AM EDT [facility] Anion Gap 8 6 - 16 mmol/L 12/11/2024 9:19 AM EDT [facility] Total Calcium, Plasma 9.1 8.9 - 10.2 mg/dL 12/11/2024 9:19 AM EDT [facility] Total Protein 6.9 6.3 - 7.9 g/dL 12/11/2024 9:19 AM EDT [facility] Albumin, Plasma 4.0 3.5 - 5.2 g/dL 12/11/2024 9:19 AM EDT [facility] AST, Plasma 38 10 - 50 U/L 12/11/2024 9:19 AM EDT [facility] ALT, Plasma 40 10 - 50 U/L 12/11/2024 9:19 AM EDT [facility] Alkaline Phosphatase, Plasma 86 40 - 115 U/L 12/11/2024 9:19 AM EDT [facility] Total Bilirubin, Plasma 0.6 0.2 - 1.1 mg/dL 12/11/2024 9:19 AM EDT [facility] eGFRcr 97.7 mL/min/1.7 3m*2 12/11/2024 9:19 AM EDT [facility] Comment:Reported eGFRcr in m L/min/1.73m2 is based the CKD-EPI 2020 equation that does not use a race coefficient. Blood Venous blood specimen / Unknown Venipuncture / Unknown 12/11/2024 8:38 AM EDT 12/11/2024 8:50 AM EDT us Virgen Vargas MD LAB BLOOD ORDERABLES Final Re sult [facility] [address] [place] [address] documented in this encounter Visit Diagnoses Diagnosis [...] documented as of this encounter Care Teams Orthodontic Technician Assistant Relationship Specialty Start Date End Date Zhao Harris MD [address] [place] [address] PCP - General 12/03/20 documented as of this encounter
--- OUTSIDE RECORDS SUMMARY | 2024-12-11 09:00 | XMS_ITS | Encounter Summary ---
Author Organization [facility] Address [address] 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) Virgen Vargas MD 800 [facility] Cancer [address] [address] Phone: tel: fax: Referral ID Status Reason Start Date Expiration Date V isits Requested Visits Authorized [id number] Closed Specialty Services Required 12/11/2024 06/12/2026 1 1 Encounter Details Date Type Department Care Team (Latest Contact Info) Description 12/11/2024 9:00 AM EDT Office Visit PAV CC Hematology/BMT and Cellular Therapy Program [address] [place] [phone] Virgen Vargas MD 800 [facility] Cancer [address] [address] Myelodysplasia (myelodysplastic syndrome) (CMS/HCC) (Primary [...] drink first t manav in the morning (EYE-INSTRUMENT MAKER AND REPAIRER) to steady your nerves or to [...] a preserved mata-T cell profile with a CD4:VD1wlqmu of 2.7:1. Polyclonal B-cells (3%) and a small plasma cell population (0.6%) were also identified. Cytogenetics: Normal. Molecular Testing: PCR for NPM1 and FLT3 mutations are negative. Next-generation sequencing (NGS) myeloid panel: ASXL1 - p.[id number] - VAF 25% TP53 - p.[id number] - VAF 36% U2AF1 - p.[id number] - VAF 33% 10/20/2024- started treatment with [...] a durable remission in the context of SC11-jwjoewa AML. The third, and most promising, option would be enrollment in a clinical trial, ideally one that targets TP53- mutant disease or incorporates novel agents. Unfortunately, there are no active trials available locally or at [facility], but I have reached out to Dr. Fernandes at [facility] to explore any opportunities there. We [...] in completing the documentation. Virgen Vargas M.D. Case Work Aide Division of Hematology/BMT [facility] [1] Current Outpatient Medications: acyclovir (Zovirax) 800 [...] constipation., Disp: 30 tablet, Rfl: 3 HYDROcodone-acetaminophen ([place]) 5-325 MG tablet, Take 1 tablet by [...] Appointment PAV A Interventional Radiology [address] [place] [address] 02/10/2025 8:30 AM EDT Clinical Support PAV Hematology/BMT and Cellular Therapy Program [address] [address] 02/10/2025 9:00 AM EDT Office Visit PAV Hematology/BMT and Cellular Therapy Program [address] [address] Elaina Boss, [place] 800 [facility] [address] [place] [address] 02/10/2025 10:30 AM EDT Appointment [facility] Infusion Clinic 1 [address] [place] [address] 02/11/2025 2:00 PM EDT Appointment [facility] Infusion Clinic 1 [address] [place] [address] 02/12/2025 2:00 PM EDT Appointment [facility] Infusion Clinic 1 [address] [place] [address] 02/13/2025 2:00 PM EDT Appointment [facility] Infusion [facility] 1 [address] [place] [address] 02/14/2025 2:00 PM EDT Appointment [facility] Infusion Clinic 1 [address] [place] [address] 03/10/2025 8:30 AM EDT Clinical Support PAV Hematology/BMT and Cellular Therapy Program [address] [address] 03/10/2025 9:00 AM EDT Office Visit PAV Hematology/BMT and Cellular Therapy Program [address] [address] Isaura Wynn, ESTRELLA 800 [facility] [address] [place] [phone] 03/10/2025 11:20 AM EDT Office Visit Pav CC Head, Neck & Respiratory 800 [facility], 2nd [place] [address] Elsa Razo, ANTIQUE AUTO MUSEUM MAINTENANCE WORKER 800 [place] [address] documented as of this encounter Visit Diagnoses [...] documented as of this encounter Care Teams Cell Installer Relationship Specialty Start Date End Date Zhao Harris MD [address] [address] PCP - General 12/03/20 documented as of this encounter
--- OUTSIDE RECORDS SUMMARY | 2024-12-11 13:00 | XMS_ITS | Encounter Summary ---
Author Organization [facility] Address [address] [place] [address] Care Team Providers Care Entry Level Account Manager Name Role Phone Zhao Harris MD Primary Care Provider [phone] Encounter Details Date Type Department Care Team (Latest Contact Info) Description 12/11/2024 1:00 PM EDT Clinical Support [facility] Cancer Acute Treatment [facility] [address] 2[address] [place] [address] Myelodysplasia (myelodysplastic syndrome) (CMS/HCC) (Primary Dx); Thrombocytopenia [...] first t manav in the morning (EYE-DAIRY PROCESSING SUPERVISOR) to steady your nerves or to [...] PAV A Interventional Radiology [address] [place] [address] 02/10/2025 8:30 AM EDT Clinical Support [facility] CC Hematology/BMT and Cellular Therapy Program [address] [address] 02/10/2025 9:00 AM EDT Office Visit PAV Hematology/BMT and Cellular Therapy Program [address] [phone] Elaina Boss, PA 800 [facility] [address] [place] [phone] 02/10/2025 10:30 AM EDT Appointment [facility] Infusion Clinic 1 [address] [place] [address] 02/11/2025 2:00 PM EDT Appointment [facility] Infusion [facility] 1 [address] [place] [address] 02/12/2025 2:00 PM EDT Appointment [facility] Infusion [facility] 1 [address] [place] [address] 02/13/2025 2:00 PM EDT Appointment [facility] Infusion [facility] 1 [address] [place] [address] 02/14/2025 2:00 PM EDT Appointment [facility] Infusion [facility] 1 [address] [place] [address] 03/10/2025 8:30 AM EDT Clinical Support [facility] Hematology/BMT and Cellular Therapy Program [address] [address] 03/10/2025 9:00 AM EDT Office Visit PAV Hematology/BMT and Cellular Therapy Program [address] [address] Isaura Wynn, LUGGAGE LINER 800 [facility] [address] [place] [phone] 03/10/2025 11:20 AM EDT Office Visit Pav Head, Neck & Respiratory 800 [facility], 2nd [place] [phone] Elsa Razo, LUGGAGE LINER 800 [place] [address] documented as of this encounter [...] HEMATOLOGY METHOD 12/11/2024 2:37 PM EDT [facility] Blood Venous blood specimen / Unknown Venipuncture / Unknown 12/11/2024 2:04 PM EDT 12/11/2024 2:34 PM EDT Glenroy Kim MD LAB BLOOD ORDERABLES Fi nal Result [facility] 800 [place] [address] * Prepare Leukocyte Reduced Platelets: 1 Units (12/11/2024 12:57 PM EDT) Product Code [id number] CH BLOO D BANK Dispense Status Transfused BLOOD BANK Blood Expiration Date [id number] BLOOD BANK Unit Number [id number] CH B LOOD BANK Product Blood Type 6200 BLOOD BANK Blood Type A+ CH BLOOD BANK Blood Venous blood specimen / Unknown Kayli CHIU BLOOD BANK PRODUCT ORDER VIKAS Final Result BLOOD BANK [address] documented in this encounter Visit Diagnoses [...] documented as of this encounter Care Teams Entry Level Account Manager Relationship Specialty Start Date End Date Zhao Harris MD [address] [place] [address] PCP - General 12/03/20 documented as of this encounter
--- OUTSIDE RECORDS SUMMARY | 2024-12-11 14:30 | XMS_ITS | Encounter Summary ---
Author Organization [facility] Address [address] [place] [address] Care Team Providers Care Sec Reporting Consultant Name Role Phone Zhao Harris MD Primary Care Provider [phone] Reason for Visit * Consultation (Routine) - Closed Specialty Diagnoses / Procedures Referred By Contact Referred To Contact Interventional Radiology Diagnoses Myelodysplasia (myelodysplastic syndrome) (CMS/HCC) Mckilney Lee MD [address] [place] [address] Phone: tel:[phone] fax:[phone] [facility] Vascular Interventional Radiology [address] [facility] Room [address] [place] [phone] Phone: tel: Referral ID Status Reason Start Date Expiration Date V isits Requested Visits Authorized [id number] Closed Specialty Services Required 12/01/2024 06/02/2026 1 1 Encounter Details Date Type Department Care Team (Latest Contact Info) Description 12/11/2024 2:30 PM EDT Office Visit [facility] Vascular Interventional Radiology [address] [facility] Room [address] [place] [phone] Judy Leung APRN, SHEEBA [address] [place] [address] Port-A-Cath in place (Primary Dx); [...] first t manav in the morning (EYE-PERSONAL FINANCIAL ADVISOR) to steady your nerves or to get [...] Orders * Progress Notes - Judy Leung, SSAS DEVELOPER, DNP - 12/11/2024 2:30 PM EDT Images [...] been accessed. He is being referred to [facility] for possible trials. Allergies: Patient has [...] for port placement. New AML, starting chemotherapy. Reed Or Wind Instrument Tuner: Mckinley Lee MD Secondary Manager Marketing: Dr. David Holt Rad Dose: 6 mGy [...] was placed supine on the fluoro table. Carpenter Repair ultrasonography revealed the vein to be compressible [...] with no evidence of complication. Device: 6 [place] Islander port catheter cut to length of [...] placement on 12/01/24 - Being referred to [facility] for possible trials PLAN: - Port [...] syndrome) (CMS/HCC) - Discharge Ambulatory referral to [facility] Clinic I spent 35 minutes on this [...] daily., Disp: 90 tablet, Rfl: 3 HYDROcodone-acetaminophen ([place]) 5-325 MG tablet, Take 1 tablet by [...] Appointment PAV A Interventional Radiology [address] [place] [address] 02/10/2025 8:30 AM EDT Clinical Support PAV Hematology/BMT and Cellular Therapy Program [address] [place] [address] [place] [address] 02/10/2025 9:00 AM EDT Office Visit PAV Hematology/BMT and Cellular Therapy Program [address] [place] [address] [place] [address] Elaina Boss, PA 800 [facility] Cancer [address] [phone] 02/10/2025 10:30 AM EDT Appointment [facility] Infusion Clinic 1 [address] [place] [address] 02/11/2025 2:00 PM EDT Appointment [facility] Infusion Clinic 1 [address] [place] [address] 02/12/2025 2:00 PM EDT Appointment [facility] Infusion Clinic 1 [address] [place] [phone] 02/13/2025 2:00 PM EDT Appointment [facility] Infusion [facility] 1 4 [place] [address] 02/14/2025 2:00 PM EDT Appointment [facility] Infusion [facility] 1 [address] [place] [phone] 03/10/2025 8:30 AM EDT Clinical Support PAV CC Hematology/BMT and Cellular Therapy Program [address] [phone] 03/10/2025 9:00 AM EDT Office Visit P[facility] CC Hematology/BMT and Cellular Therapy Program [address] [phone] Isaura Wynn, SSAS DEVELOPER 800 [facility] Cancer [address] [phone] 03/10/2025 11:20 AM EDT Office Visit Pav CC Head, Neck & Respiratory 800 [facility], 2nd [place] [phone] Elsa Razo, SSAS DEVELOPER [address] [place] [phone] documented as of this encounter Procedures Procedure [...] 12/12/2024 8:43 AM EDT us Judy Leung SSAS DEVELOPER, DNP LAB BLOOD BANK TEST ORDE MAGNO Final Result BLOOD BANK [address] [place] [address], documented in this encounter Visit Diagnoses Diagnosis [...] documented as of this encounter Care Teams Sec Reporting Consultant Relationship Specialty Start Date End Date Zhao Harris MD [address] [place] [address] PCP - General 12/03/20 documented as of this encounter
--- OUTSIDE RECORDS SUMMARY | 2024-12-16 08:00 | XMS_ITS | Encounter Summary ---
Author Organization [facility] Address [address] [place] [address] Care Team Providers Care Plaster Model And Mold Maker Name Role Phone Zhao Harris MD Primary Care Provider [phone] Reason for Visit * Reason Comments Labs Nurse Visit Encounter Details Date Type Department Care Team ([facility] Contact Info) Description 12/16/2024 8:00 AM EDT Clinical Support PAV CC Hematology/BMT and Cellular Therapy Program [address] [place] [address] [place] [address] Social History Tobacco Use Types Packs/Day Years [...] drink first t manav in the morning (EYE-EPOXY COATINGS INSTALLER) to steady your nerves or to get [...] ([facility] st Contact Info) Description 02/02/2025 11:00 AM EDT Appointment PAV A Interventional Radiology [address] [place] [address] 02/10/2025 8:30 AM EDT Clinical Support PAV CC Hematology/BMT and Cellular Therapy Program [address] [address] 02/10/2025 9:00 AM EDT Office Visit PAV Hematology/BMT and Cellular Therapy Program [address] [address] Elaina Boss, PA 800 [facility] [address] [place] [address] 02/10/2025 10:30 AM EDT Appointment [facility] Infusion Clinic 1 744 [place] [address] 02/11/2025 2:00 PM EDT Appointment [facility] Infusion Clinic 1 [address] [place] [address] 02/12/2025 2:00 PM EDT Appointment [facility] Infusion [facility] 1 [address] [place] [address] 02/13/2025 2:00 PM EDT Appointment [facility] Infusion [facility] 1 [address] [place] [address] 02/14/2025 2:00 PM EDT Appointment [facility] Infusion [facility] 1 [address] [place] [address] 03/10/2025 8:30 AM EDT Clinical Support PAV CC Hematology/BMT and Cellular Therapy Program [address] [place] [place] [address] 03/10/2025 9:00 AM EDT Office Visit PAV CC Hematology/BMT and Cellular Therapy Program 750 [facility] [place] [phone] Isaura Wynn, PROCESS EXPERT 800 [facility] [address]st [place] [address] 03/10/2025 11:20 AM EDT Office Visit Pav CC Head, Neck & Respiratory 800 [facility], 2nd [place] [phone] Elsa Razo, PROCESS EXPERT 800 [place] [address] documented as of this encounter Visit Diagnoses [...] documented as of this encounter Care Teams Plaster Model And Mold Maker Relationship Specialty Start Date End Date Zhao Harris MD [address] [place] [address] [phone] PCP - General 12/03/20 documented as of this encounter
--- OUTSIDE RECORDS SUMMARY | 2024-12-16 08:30 | XMS_ITS | Encounter Summary ---
Author Organization [facility] Address [address] [place] [address] Care Team Providers Care Engineering Programmer Name Role Phone Zhao Harris MD Primary Care Provider [phone] Reason for Referral * Genetic Testing (Routine) - Authorized Specialty Diagnoses / Procedures Referred By Justice t Referred To Contact Lab Diagnoses Myelodysplasia (myelodysplastic syndrome) (CMS/HCC) Procedures Leukemia/Lymphoma - Immunophenotyping by Flow Cytometry Virgen Vargas MD [address] [facility] [address] [address] Phone: tel: fax: Referral ID Status Reason Start Date Expiration Date V isits Requested Visits Authorized [id number] Authorized 12/18/2024 06/19/2026 1 1 * Genetic Testing (Routine) - Authorized Specialty Diagnoses / Procedures [facility]erred To Contact Lab Diagnoses Myelodysplasia (myelodysplastic syndrome) (CMS/HCC) Procedures Bone marrow exam Virgen Vargas MD 800 [facility] [address] [address] Phone: tel: fax: Referral ID Status Reason Start Date Expiration Date V isits Requested Visits Authorized [id number] Authorized 12/18/2024 06/19/2026 1 1 Reason for Visit * Reason Comments Acute Myeloid Leukemia Encounter Details Date Type Department Care Team (Latest Contact Info) Description 12/16/2024 8:30 AM EDT Office Visit [facility] CC Hematology/BMT and Cellular Therapy Program [address] [facility], [address] [place] [address] Isaura Wynn, BRICKMASON SUPERVISOR [address] [facility] [address] [place] [id number] Myelodysplasia (myelodysplastic syndrome) (CMS/HCC) (Primary Dx) Social [...] drink first t manav in the morning (EYE-LINING CASER) to steady your nerves or to get [...] Notes * Progress Notes - Isaura Wynn, BRICKMASON SUPERVISOR - 12/16/2024 8:30 AM EDT HEMATOLOGY ONCOLOGY [...] a preserved mata-T cell profile with a CD4:QT1nufej of 2.7:1. Polyclonal B-cells (3%) and a small plasma cell population (0.6%) were also identified. Cytogenetics: Normal. Molecular Testing: PCR for NPM1 and FLT3 mutations are negative. 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 The third, and most promising, option would be enrollment in a clinical trial, ideally one that targets TP53- mutant disease or incorporates novel agents. Unfortunately, there are no active trials available locally or at [facility], but I have reached out to Dr. Fernandes at [facility] to explore any opportunities there. We will [...] daily., Disp: 90 tablet, Rfl: 3 HYDROcodone-acetaminophen ([place]) 5-325 MG tablet, Take 1 tablet by [...] History: N/A Plan: Venetoclax rx sent to [facility]. Refills due monthly. Patient will return to clinic in 4 weeks. Will follow-up at that time. documented in this encounter Plan of Treatment Upcoming Encounters Date Type Department Care Team ([facility] st Contact Info) Description 02/02/2025 11:00 AM EDT Appointment [facility] A Interventional Radiology [address] [place] [address] 02/10/2025 8:30 AM EDT Clinical Support [facility] Hematology/BMT and Cellular Therapy Program [address] [address] 02/10/2025 9:00 AM EDT Office Visit [facility] Hematology/BMT and Cellular Therapy Program [address] [address] Elaina Boss PA 800 [facility] [address] [place] [phone] 02/10/2025 10:30 AM EDT Appointment [facility] Infusion Clinic 1 [address] [place] [address] 02/11/2025 2:00 PM EDT Appointment [facility] In[facility] 1 [address] [place] [address] 02/12/2025 2:00 PM EDT Appointment [facility] In[facility] 1 [address] [place] [address] 02/13/2025 2:00 PM EDT Appointment [facility] 1 [address] [place] [address] 02/14/2025 2:00 PM EDT Appointment [facility] Infusion [facility] 1 [address] [place] [address] 03/10/2025 8:30 AM EDT Clinical Support [facility] CC Hematology/BMT and Cellular Therapy Program [address] [address] 03/10/2025 9:00 AM EDT Office Visit [facility] Hematology/BMT and Cellular Therapy Program [address] [address] Isaura Wynn, BRICKMASON SUPERVISOR 800 [facility] [address] [place] [address] 03/10/2025 11:20 AM EDT Office Visit Pav CC Head, Neck & Respiratory 800 [facility], [address] [place] [address] Elsa Razo, BRICKMASON SUPERVISOR [address] [place] [phone] documented as of this encounter Procedures Procedure Name Priority Date/Time Associated Diagnosis Comments GROUP A STREPTOCOCCUS BY PCR Routine 12/16/2024 9:40 AM EDT Myelodysplasia (myelodysplastic syndrome) ([facility]) STREPTOCOCCUS CULTURE Routine 12/16/2024 9:40 AM EDT Myelodysplasia (myelodysplastic syndrome) ([facility]) CBC WITH AUTO DIFFERENTIAL Routine 12/16/2024 8:10 AM EDT Myelodysplasia (myelodysplastic syndrome) ([facility]) URIC ACID, PLASMA Routine 12/16/2024 8:1 0 AM EDT Myelodysplasia (myelodysplastic syndrome) ([facility]) PHOSPHORUS, PLASMA Routine 12/16/2024 8: 10 AM EDT Myelodysplasia (myelodysplastic syndrome) (CMS/HCC) MAGNESIUM, PLASMA Routine 12/16/2024 8:1 0 AM EDT Myelodysplasia (myelodysplastic syndrome) (CMS/HCC) LACTATE DEHYDROGENASE, PLASMA Routine 12/16/2024 8:10 AM EDT Myelodysplasia (myelodysplastic syndrome) (CMS/HCC) COMPREHENSIVE METABOLIC PANEL, PLASMA Routine 12/16/2024 8:10 AM EDT Myelodysplasia (myelodysplastic syndrome) (CMS/HCC) documented in this encounter Results * Leukemia/Lymphoma - Immunophenotyping by Flow Cytometry (01/06/2025 9:48 AM EDT) Clinical Indication AML 01/07/2025 10:18 AM EDT [facility] Flow Cytometry Interpretation APPROXIMATELY 16% MYELOID BLASTS; EXPRESSING CD34, CD117, CD13, CD33, HLA-DR, PARTIAL CD7, PARTIAL CD123, VARIABLE CD38, AND MODERATE CD45, SEE COMMENT, BONE MARROW ASPIRATE. 01/07/2025 10:18 AM EDT [facility] Comments Specimen viability is 79%. Flow cytometric analysis shows an expansion of the progenitor region with approximately 16% myeloid blasts with the aforementioned immunophenotype. Analysis of the lymphocyte population shows 0.9% of all cells express CD19 and CD10 with variable CD34 consistent with hematogones. T cells comprise 21% of all events, and have a mature phenotype with a CD4/CD8 ratio of 1.9. B cells comprise 0.3% of all events and show polyclonal surface immunoglobulin and a kappa/lambda ratio of 1.73. The remaining cells are a reduced population of myeloid and monocytic cells. In summary, this bone marrow aspirate demonstrates 16% myeloid blasts with an immunophenotype similar to the previous leukemic blasts, consistent with residual disease. Final interpretation requires morphologic correlation ([id number]). The following antibodies were used in this analysis: CD45, CD2, CD3, CD4, CD5, CD7, CD8, CD10, CD13, CD14, CD15, CD16, CD19, CD20, CD33, CD34, CD38, CD56, CD117, HLA-DR, kappa surface light chains, lambda surface light chains, CD123 01/07/2025 10:18 AM EDT [facility] Disclaimer This test was developed and its performance characteristics determined by the Immuno-Molecular Pathology Laboratory at the [facility]. It has not been cleared or approved [...] to perform high complexity clinical laboratory testing. 01/07/2025 10:18 AM EDT [facility] Pathologist Signature Reviewed by: Tessie Peralta MD 01/07/2025 10:18 AM EDT [facility] MRD Indicated Test Not Indicated 10:18 AM EDT [facility] Bone Marrow Specimen from bone marrow obtained by aspiration / Unknown Non-blood Collection / Unknown 01/06/2025 9:48 AM EDT 01/06/2025 11:20 AM EDT us Virgen Vargas MD LAB FLOW CYTOMETRY ORDERABLES Final Result [facility] [address] [place] [address] * Bone marrow exam (01/06/2025 9:48 AM EDT) Case Report Bone Marrow Case: [id number] Authorizing Provider: Virgen Vargas MD Collected: 01/06/2025 0948 Ordering Location: [facility] Hematology/BMT and Received: 01/06/2025 1108 Cellular Therapy Program Pathologist: Tessie Peralta MD Specimens: A) - Bone Marrow Aspirate, left B) - Bone Marrow Biopsy, left C) - Peripheral Blood for Bone Marrow 6:13 PM EDT [facility] Final Diagnosis BONE MARROW, LEFT POSTERIOR ILIAC CREST, (PERIPHERAL SMEAR, ASPIRATE SMEARS, AND CORE BIOPSY): - MILDLY HYPOCELLULAR BONE MARROW WITH ERYTHROID HYPERPLASIA, MARKEDLY REDUCED GRANULOPOIESIS, PERSISTENT DYSPOIESIS AND 10% BLASTS, SEE COMMENT. 6:13 PM EDT [facility] at 1813 EDT Comment The marrow cellularity is composed of erythroid cells with markedly reduced granulopoiesis and decreased megakaryocytes. Persistent trilineage dyspoiesis is noted. The blast percentages are higher by flow cytometry analysis as the majority of marrow cellularity consists of erythroid precursors that are removed by flow cytometry. 5 6:13 PM EDT [facility] Clinical Information AML 12/22 6:13 PM EDT [facility] CBC and Differential PERIPHERAL BLOOD: 01/06/2025: WBC Count 0.59 (Ref range: 3.70 - 10.30 10*3/uL); HGB 8.8 (Ref range: 13.7 - 17.5 g/dL); HCT 25.3 (Ref range: 40.0 - 51.0 %); Platelet Count 75 (Ref range: 155 - 369 10*3/uL); MCV 86 (Ref range: 79 - 98 fL) DIFFERENTIAL:No results found for requested labs within last 8 days 8 hours. Peripheral smear shows marked leukopenia with absolute neutropenia and lymphopenia. Occasional neutrophils are hypolobated and hypogranular. Moderate normocytic anemia with anisocytosis and occasional circulating nucleated red blood cells. No circulating blasts are identified. 5 6:13 PM EDT [facility] Bone Marrow Differential BONE MARROW DIFFERENTIAL: 400 cells Normal Patient Neutrophils 15-50 0 Metamyelocytes 4-19 1 Myelocytes 1-18 2 Promyelocytes 1-8 1 Blasts 0-2 10 Monocytes 0-5 0 Erythroid 16-38 73 Lymphocytes 3-24 4 Eosinophils 0-6 1 Basophils 0-2 0 Plasma cells 0-4 8 Other 5 6:13 PM EDT [facility] Bone Marrow Aspirate and Biopsy Core biopsy shows mildly hypocellular bone marrow with 10-20% cellularity. cellularity is composed of erythroid lineage cells, few immature cells consistent with blasts, plasma cells, lymphocytes and markedly reduced granulopoiesis. Megakaryocytes are markedly reduced in number, only single megakaryocyte is seen. By immunostains, CD34 highlights vasculature and less than 5% blasts. The bone marrow aspirate smears are spicular and cellular with erythroid predominance and an increase in blasts (10% of the manual differential count). The blasts are medium sized with round to slightly irregular nuclei, fine chromatin and scant to moderately light basophilic cytoplasm. Few of the blasts have cytoplasmic vacuoles. No Betsy rods are identified. Megakaryocytes are markedly decreased in number with atypia (separation of nuclear lobes). Erythropoiesis is increased with dyspoiesis ( megaloblastoid changes, nuclear to cytoplasmic dyssynchrony, nuclear membrane irregularities, budding, frequent binucleated erythroid precursors and cytoplasmic vacuolization). Granulopoiesis is markedly decreased with too few forms present for accurate morphologic assessment. The rare forms identified are hypogranular and hypolobated. Plasma cells are slightly increased in number without atypical forms. No metastatic tumor is identified. No lymphoma is identified. No granulomas are identified. Bone trabeculae are unremarkable. 5 6:13 PM EDT [facility] Special and Immunohistochemical Stains Immunohistochemica l stains were performed in addition to flow cytometry in specimen B block B1 to further characterize the blasts in the context of cell morphology and tissue architecture, since discrepancy between flow cytometric analysis and morphology can occur due to sampling bias, preferential loss of targeted cells, or hemodilution. Special Stain: A1-1 Christine-Giemsa A1-2 Christine-Giemsa A1-3 Christine-Giemsa C1-1 Christine-Giemsa IHC: B1-2 CD34 All controls show appropriate reactivity. All immunohistochemist ry, in situ hybridization, and histochemical tests were developed by and are performed at the [facility], [address] [place] [address]. All tests reported here, except those addressing [...] likelihood of false negativity on decalcified specimens. 5 6:13 PM EDT [facility] Flow Cytometry Interpretation APPROXIMATELY 16% MYELOID BLASTS; EXPRESSING CD34, CD117, CD13, CD33, HLA-DR, PARTIAL CD7, PARTIAL CD123, VARIABLE CD38, AND MODERATE CD45, SEE COMMENT, BONE MARROW ASPIRATE ([id number]) 6:13 PM EDT [facility] Gross Description B. LEFT A single specimen is received in formalin labeled bone marrow biopsy left posterior iliac crest and consists of 2 piece(s) of tissue measuring 0.8/0.2 cm in length 0.2 cm in diameter. The specimen is submitted in to Histology for decalcification and routine processing. Cold Time: <1m 6:13 PM EDT [facility] Note: A resident was involved in the service. I attest I examined the relevant preparations for the specimens and confirmed the diagnosis or interpretation. 6:13 PM EDT [facility] Bone Marrow Peripheral blood specimen / Unknown Non-blood Collection / Unknown 01/06/2025 9:48 AM EDT 01/06/2025 11:08 AM EDT Bone marrow specimen (specimen) Specimen from bone marrow obtained by biopsy / Unknown 01/06/2025 9:48 AM EDT 01/06/2025 11:09 AM EDT Bone marrow specimen (specimen) Peripheral blood specimen / Unknown 01/06/2025 9:48 AM EDT 01/06/2025 11:10 AM EDT Virgen Vargas MD LAB PATHOLOGY ORDERABLES Terri lara Result [facility] [address] [place] [address] * Streptococcus Culture (12/16/2024 9:40 AM EDT) Culture Reading Strep A No Streptococcus pyogenes or Streptococcus dysgalactiae isolated 12/17/2024 2:28 PM EDT [facility] Swab Pharyngeal structure / Unknown Non-blood Collection / Unknown 12/16/2024 9:40 AM EDT 12/16/2024 10:10 AM EDT Isaura L Meikel BRICKMASON SUPERVISOR LAB MICROBIOLOGY - GENERAL ORD ERABLES Final Result Performing Organization Address [facility] de Phone Number [facility] [address] [place] [address] * Group A Streptococcus by PCR (12/16/2024 9:40 AM EDT) Group A Streptococcus PCR Result Not Detected Not Detected 12/16/2024 11:53 AM EDT [facility] Swab Pharyngeal structure / Unknown Non-blood Collection / Unknown 12/16/2024 9:40 AM EDT 12/16/2024 10:10 AM EDT us Isaura Wynn APRN LAB MICROBIOLOGY - GENERAL ORD ERABLES Final Result Performing Organization Address [facility] [place] [address] * (ABNORMAL) Uric acid (12/16/2024 8:10 AM EDT) Uric Acid, Plasma 3.0(L) 3.7 - 8.0 mg/dL 12/16/2024 8:58 AM EDT [facility] Blood Venous blood specimen / Unknown Venipuncture / Unknown 12/16/2024 8:10 AM EDT 12/16/2024 8:27 AM EDT us Isaura Wynn BRICKMASON SUPERVISOR LAB BLOOD ORDERABLES Final Res ult Performing Organization Address [facility] de Phone Number [facility] [address] [place] [address] * Phosphorus, Plasma (12/16/2024 8:10 AM EDT) Phosphorus, Plasma 3.4 2.5 - 4.5 mg/dL 12/16/2024 8:58 AM EDT [facility] Blood Venous blood specimen / Unknown Venipuncture / Unknown 12/16/2024 8:10 AM EDT 12/16/2024 8:27 AM EDT us Isaura Wynn BRICKMASON SUPERVISOR LAB BLOOD ORDERABLES Final Res ult Performing Organization Address [facility] Co de Phone Number [facility] [address] [place] [address] * Magnesium, Plasma (12/16/2024 8:10 AM EDT) Magnesium, Plasma 2.4 1.9 - 2.4 mg/dL 12/16/2024 8:58 AM EDT [facility] Blood Venous blood specimen / Unknown Venipuncture / Unknown 12/16/2024 8:10 AM EDT 12/16/2024 8:27 AM EDT us Isaura L Meikel BRICKMASON SUPERVISOR LAB BLOOD ORDERABLES Final Res ult Performing Organization Address [facility] Co de Phone Number [facility] [address] [place] [address] * Lactate Dehydrogenase, Plasma (12/16/2024 8:10 AM EDT) LDH, Plasma 230 116 - 250 U/L 12/16/2024 8:58 AM EDT [facility] Blood Venous blood specimen / Unknown Venipuncture / Unknown 12/16/2024 8:10 AM EDT 12/16/2024 8:27 AM EDT us Isaura L Meikel BRICKMASON SUPERVISOR LAB BLOOD ORDERABLES Final Res ult Performing Organization Address [facility] Co de Phone Number [facility] [address] [place] [address] * (ABNORMAL) Comprehensive Metabolic Panel, Plasma (12/16/2024 8:10 AM EDT) Glucose, Plasma 110(H) 74 - 99 mg/dL 12/16/2024 8:58 AM EDT [facility] BUN, Plasma 10 8 - 23 mg/dL 12/16/2024 8:58 AM EDT [facility] Creatinine, Plasma 0.79 0.70 - 1.20 mg/dL 12/16/2024 8:58 AM EDT [facility] BUN/Creatinine Ratio 13 12/16/2024 8:58 AM EDT [facility] Sodium, Plasma 140 136 - 145 mmol/L 12/16/2024 8:58 AM EDT [facility] Potassium, Plasma 4.2 3.6 - 4.9 mmol/L 12/16/2024 8:58 AM EDT [facility] Chloride, Plasma 109(H) 97 - 107 mmol/L 12/16/2024 8:58 AM EDT [facility] CO2, Plasma 21(L) 22 - 29 mmol/L 12/16/2024 8:58 AM EDT [facility] Anion Gap 10 6 - 16 mmol/L 12/16/2024 8:58 AM EDT [facility] Total Calcium, Plasma 8.9 8.9 - 10.2 mg/dL 12/16/2024 8:58 AM EDT [facility] Total Protein 6.8 6.3 - 7.9 g/dL 12/16/2024 8:58 AM EDT [facility] Albumin, Plasma 4.0 3.5 - 5.2 g/dL 12/16/2024 8:58 AM EDT [facility] AST, Plasma 23 10 - 50 U/L 12/16/2024 8:58 AM EDT [facility] ALT, Plasma 25 10 - 50 U/L 12/16/2024 8:58 AM EDT [facility] Alkaline Phosphatase, Plasma 95 40 - 115 U/L 12/16/2024 8:58 AM EDT [facility] Total Bilirubin, Plasma 0.6 0.2 - 1.1 mg/dL 12/16/2024 8:58 AM EDT [facility] eGFRcr 96.2 mL/min/1.7 3m*2 12/16/2024 8:58 AM EDT [facility] Comment:Reported eGFRcr in m L/min/1.73m2 is based the CKD-EPI 2020 equation that does not use a race coefficient. Blood Venous blood specimen / Unknown Venipuncture / Unknown 12/16/2024 8:10 AM EDT 12/16/2024 8:27 AM EDT us Isaura Wynn APRN LAB BLOOD ORDERABLES Final Res ult [facility] [address] [place] [address] * (ABNORMAL) CBC and Differential (12/16/2024 8:10 AM EDT) WBC Count 0.59(LL) 3.70 - 10.30 10*3/uL LAB HEMATOLOGY METHOD 12/16/2024 10:15 AM EDT [facility] RBC Count 2.48(L) 4.60 - 6.10 10*6/uL LAB HEMATOLOGY METHOD 12/16/2024 10:15 AM EDT [facility] HGB 8.0(L) 13.7 - 17.5 g/dL LAB HEMATOLOGY METHOD 12/16/2024 10:15 AM EDT [facility] HCT 22.1(L) 40.0 - 51.0 % LAB HEMATOLOGY METHOD 12/16/2024 10:15 AM EDT [facility] Platelet Count <5(LL) 155 - 369 10*3/uL LAB HEMATOLOGY METHOD 12/16/2024 10:15 AM EDT [facility] MCV 89 79 - 98 fL LAB HEMATOLOGY METHOD 12/16/2024 10:15 AM EDT [facility] MCH 32.3(H) 26.0 - 32.0 pg LAB HEMATOLOGY METHOD 12/16/2024 10:15 AM EDT [facility] MCHC 36.2(H) 30.7 - 35.5 g/dL LAB HEMATOLOGY METHOD 12/16/2024 10:15 AM EDT [facility] RDW 16.3(H) 11.5 - 14.5 % LAB HEMATOLOGY METHOD 12/16/2024 10:15 AM EDT [facility] MPV LAB HEMATOLOGY METHOD 12/16/2024 10:15 AM EDT [facility] Comment:Not Measured nRBC 0.0 <=0.0 per 100 WBCs LAB HEMATOLOGY METHOD 12/16/2024 10:15 AM EDT [facility] Differential Type Automated LAB HEMATOLOGY METHOD 12/16/2024 10:15 AM EDT [facility] Neutrophils % 5 % LAB HEMATOLOGY METHOD 12/16/2024 10:15 AM EDT [facility] Lymphocytes % 90 % LAB HEMATOLOGY METHOD 12/16/2024 10:15 AM EDT [facility] Monocytes % 5 % LAB HEMATOLOGY METHOD 12/16/2024 10:15 AM EDT [facility] Eosinophils % 0 % LAB HEMATOLOGY METHOD 12/16/2024 10:15 AM EDT [facility] Basophils % 0 % LAB HEMATOLOGY METHOD 12/16/2024 10:15 AM EDT [facility] Immature Granulocytes % 0 % LAB HEMATOLOGY METHOD 12/16/2024 10:15 AM EDT [facility] Neutrophils Absolute 0.03(LL) 1.60 - 6.10 10*3/uL LAB HEMATOLOGY METHOD 12/16/2024 10:15 AM EDT [facility] Lymphocytes Absolute 0.53(L) 1.20 - 3.90 10*3/uL LAB HEMATOLOGY METHOD 12/16/2024 10:15 AM EDT [facility] Monocytes Absolute 0.03(L) 0.30 - 0.90 10*3/uL LAB HEMATOLOGY METHOD 12/16/2024 10:15 AM EDT [facility] Eosinophils Absolute 0.00 0.00 - 0.50 10*3/uL LAB HEMATOLOGY METHOD 12/16/2024 10:15 AM EDT [facility] Basophils Absolute 0.00 [...] based on absolute values, rather than percentages. Isaura Wynn APRN LAB BLOOD ORDERABLES Final Res ult [facility] [address] [place] [address] documented in this encounter Visit Diagnoses Diagnosis [...] as of this encounter Care Teams Engineering Programmer Relationship Specialty Start Date End Date Zhao Harris MD [address] [place] [address] PCP - General 12/03/20 documented as of this encounter
--- OUTSIDE RECORDS SUMMARY | 2024-12-16 10:00 | XMS_ITS | Encounter Summary ---
Author Organization [facility] Address [address] [place] [address] Care Team Providers Care Thread Singer Name Role Phone Zhao Harris MD Primary Care Provider + [phone] Reason for Visit * Episode Based Medications (Routine) - Closed Specialty Diagnoses / Procedures Referred By Justice mcgee Referred To Contact Diagnoses Myelodysplasia (myelodysplastic syndrome) (CMS/HCC) Procedures Azacitidine Daily x 7 / Venetoclax Every 28 Days Virgen Vargas MD 800 [facility] Cancer [address] [address] Phone: tel: fax: Virgen Vargas MD [address] [address] Phone: tel: fax: Referral ID Status Reason Start Date Expiration Date Visits Re quested Visits Authorized [id number] Closed 10/20/2024 04/21/2026 1 91 Encounter Details Date Type Department Care Team (Latest Contact Info) Description 12/16/2024 10:00 AM EDT - 12/16/2024 10:59 AM EDT Hospital Encounter [facility] H Infusion 800 [place] [phone] Myelodysplasia (myelodysplastic syndrome) (CMS/HCC) (Primary Dx); Thrombocytopenia [...] drink first t manav in the morning (EYE-SCOURING MACHINE TENDER) to steady your nerves or to get [...] MG tabletIndications :Coronary artery disease involving [place] heart with angina pectoris, unspecified vessel or lesion type (CMS/HCC),Hyperte nsion, unspecified type Take 1 tablet (5 mg) by mouth daily. 90 tablet 3 09/11/2024 HYDROcodone-aceta minophen ([place]) 5-325 MG tablet Take 1 tablet by [...] SL tabletIndications :Coronary artery disease involving [place] heart with angina [...] EDT Appointment [facility] A Interventional Radiology [address] [place] [phone] 02/10/2025 8:30 AM EDT Clinical Support [facility] Hematology/BMT and Cellular Therapy Program [address] [address] 02/10/2025 9:00 AM EDT Office Visit [facility] Hematology/BMT and Cellular Therapy Program [address] [place] [address] Elaina Boss, PA 800 [facility] [address] [place] [phone] 02/10/2025 10:30 AM EDT Appointment [facility] 1 [address] [place] [address] 02/11/2025 2:00 PM EDT Appointment [facility] 1 [address] [place] [address] 02/12/2025 2:00 PM EDT Appointment [facility] 1 [address] [place] [address] 02/13/2025 2:00 PM EDT Appointment [facility] 1 [address] [place] [address] 02/14/2025 2:00 PM EDT Appointment [facility] 1 [address] [place] [address] 03/10/2025 8:30 AM EDT Clinical Support [facility] Hematology/BMT and Cellular Therapy Program [address] [address] 03/10/2025 9:00 AM EDT Office Visit [facility] Hematology/BMT and Cellular Therapy Program [address] [place] [address] Isaura Wynn, ESTRELLA 800 [facility] [address] [address] 03/10/2025 11:20 AM EDT Office Visit Pav Head, Neck & Respiratory 800 [facility], 2nd [place] [address] Elsa Razo, SYSTEMS PROGRAMMER 800 [place] [address] documented as of this encounter [...] LAB HEMATOLOGY METHOD 12/16/2024 1:00 PM EDT [facility] Blood Venous blood specimen / Unknown Venipuncture / Unknown 12/16/2024 12:23 PM EDT 12/16/2024 12:51 PM EDT us Virgen Vargas MD LAB BLOOD ORDERABLES Final Re sult [facility] 800 [place] [address] * Transfuse platelets (12/16/2024 12:21 PM EDT) [...] ORDERABLE S Final Result Performing Organization Address City/State/[facility] Co de Phone Number BLOOD BANK [address] [place] [address], * Exception to Standard Practice, Pathologist Interpretation [...] ORDERAB LES Final Result BLOOD BANK [address] [place] [address], [place] * Prepare Leukocyte Reduced Platelets: 1 Units (12/16/2024 10:54 AM EDT) Product Code [id number] CH BLOO D BANK Dispense Status Transfused BLOOD BANK Blood Expiration Date BLOOD BANK Unit Number [id number] CH B LOOD BANK Product Blood Type 8400 BLOOD BANK Blood Type AB+ BLOOD BANK Blood Venous blood specimen / Unknown us Kayli CHIU BLOOD BANK PRODUCT ORDER VIKAS Final Result Performing Organization Address [facility] Co de Phone Number BLOOD BANK [address] [place] [address], * Prepare Leukocyte Reduced RBC: 1 Units, Irradiated (12/16/2024 10:54 AM EDT) Product Code F9650N48 CH BLOO D BANK Dispense Status Transfused BLOOD BANK Blood Expiration Date [id number] BLOOD BANK Unit Number [id number] CH B LOOD BANK Product Blood Type 9500 BLOOD BANK Blood Type O- CH BLOOD BANK Crossmatch Compatible CH BLOOD BANK Other Kayli CHIU BLOOD BANK PRODUCT ORDER VIKAS Final Result Performing Organization Address City/[facility]/ZIP Co de Phone Number BLOOD BANK [address] [place] [address], documented in this encounter Visit Diagnoses Diagnosis [...] as of this encounter Care Teams Thread Singer Relationship Specialty Start Date End Date Zhao Harris MD [address] [phone] PCP - General 12/03/20 documented as of this encounter
--- OUTSIDE RECORDS SUMMARY | 2024-12-16 11:00 | XMS_ITS | Encounter Summary ---
Author Organization Healthcare Address [address] [place] [address] Care Team Providers Care Distribution Systems Serviceperson Name Role Phone Zhao Harris MD Primary Care Provider [phone] Encounter Details Date Type Department Care Team (Latest Contact Info) Description 12/16/2024 11:00 AM EDT - 12/16/2024 11:59 PM EDT Hospital Encounter [facility] [address] [place] [address] Myelodysplasia (myelodysplastic syndrome) (CMS/HCC) (Primary Dx) Discharge [...] drink first t manav in the morning (EYE-SOLUTIONS SALES EXECUTIVE) to steady your nerves or to get [...] daily. 90 tablet 3 09/11/2024 HYDROcodone-aceta minophen ([place]) 5-325 MG tablet Take 1 tablet by [...] Appointment [facility] Interventional Radiology [address] [place] [address] 02/10/2025 8:30 AM EDT Clinical Support [facility] Hematology/BMT and Cellular Therapy Program [address] [place] [address] [place] [address] 02/10/2025 9:00 AM EDT Office Visit [facility] H[facility]ology[facility]BMT [facility] Cellular Therapy Program [address] [place] [address] [place] [phone] Elaina Boss, ARAM 800 [facility] Cancer [address] [address] 02/10/2025 10:30 AM EDT Appointment [facility] 1 [address] [place] [address] 02/11/2025 2:00 PM EDT Appointment [facility] 1 [address] [place] [phone] 02/12/2025 2:00 PM EDT Appointment [facility] 1 [address] [place] [address] 02/13/2025 2:00 PM EDT Appointment [facility] 1 [address] [place] [address] 02/14/2025 2:00 PM EDT Appointment [facility] 1 [address] [place] [address] 03/10/2025 8:30 AM EDT Clinical Support [facility] Hematology/BMT and Cellular Therapy Program [address] [phone] 03/10/2025 9:00 AM EDT Office Visit [facility] Hematology/BMT and Cellular Therapy Program [address] [phone] Isaura Wynn, TECHNICAL SUPPORT COORDINATOR 800 [facility] Cancer [address] [phone] 03/10/2025 11:20 AM EDT Office Visit [facility] Head[facility] Neck & Respiratory 800 [facility], 2nd [place] [address] Elsa Razo, TECHNICAL SUPPORT COORDINATOR [address] [place] [phone] documented as of this encounter Visit Diagnoses [...] documented as of this encounter Care Teams Distribution Systems Serviceperson Relationship Specialty Start Date End Date Zhao Harris MD [address] [place] [address] PCP - General 12/03/20 documented as of this encounter
--- OUTSIDE RECORDS SUMMARY | 2024-12-17 08:23 | XMS_ITS | Encounter Summary ---
Author Organization [facility] Address [address] [place] [address] Care Team Providers Care Belting Cutter Name Role Phone Zhao Harris MD Primary Care Provider + [phone] Reason for Visit * Episode Based Medications (Routine) - Closed Specialty Diagnoses / Procedures Referred By Justice mcgee Referred To Contact Diagnoses Myelodysplasia (myelodysplastic syndrome) (CMS/HCC) Procedures Azacitidine Daily x 7 / Venetoclax Every 28 Days Virgen Vargas MD 800 [facility] Cancer [address] [address] Phone: tel: fax: Virgen Vargas MD [address] [address] Phone: tel: fax: Referral ID Status Reason Start Date Expiration Date Visits Re quested Visits Authorized [id number] Closed 10/20/2024 04/21/2026 1 91 Encounter Details Date Type Department Care Team (Latest Contact Info) Description 12/17/2024 8:23 AM EDT - 12/17/2024 11:59 PM EDT Hospital Encounter [facility] H Infusion 800 [place] [phone] Myelodysplasia (myelodysplastic syndrome) (CMS/HCC) (Primary Dx); Thrombocytopenia [...] first t manav in the morning (EYE-SALES RELATIONSHIP MANAGER) to steady your nerves or to [...] 5 MG tabletIndications :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 90 tablet 3 09/11/2024 HYDROcodone-aceta minophen ([place]) 5-325 MG tablet Take 1 tablet by [...] MG SL tabletIndications :Coronary artery disease involving [place] heart with angina pectoris, unspecified vessel or [...] Appointment [facility] A Interventional Radiology [address] [place] [address] 02/10/2025 8:30 AM EDT Clinical Support [facility] Hematology/BMT and Cellular Therapy Program [address] [address] 02/10/2025 9:00 AM EDT Office Visit [facility] H[facility]ology[facility] Cellular Therapy Program [address] [address] Elaina Boss, ARAM 800 [facility] [address] [place] [phone] 02/10/2025 10:30 AM EDT Appointment [facility] 1 [address] [place] [address] 02/11/2025 2:00 PM EDT Appointment [facility] 1 [address] [place] [address] 02/12/2025 2:00 PM EDT Appointment [facility] 1 [address] [place] [address] 02/13/2025 2:00 PM EDT Appointment [facility] Infusion Clinic 1 [address] [place] [address] 02/14/2025 2:00 PM EDT Appointment [facility] 1 [address] [place] [address] 03/10/2025 8:30 AM EDT Clinical Support [facility] H[facility]ology[facility]BMT [facility] Cellular Therapy [facility] [address] [address] 03/10/2025 9:00 AM EDT Office Visit [facility] Hematology[facility]BMT [facility] Cellular Therapy Program [address] [address] Isaura Wynn, TIRE TESTER 800 [facility] [address] [place] [phone] 03/10/2025 11:20 AM EDT Office Visit [facility] Head, Neck & Respiratory 800 [facility], 2nd [place] [address] Elsa Razo, TIRE TESTER [address] [place] [phone] documented as of this encounter Results * [...] Sun12/17/24 at 0915, RoutineIndications:Myelodyspla haim (myelodysplastic syndrome) ([facility]/HCC) Given 12/17/2024 8:54 AM EDT 16 mg [...] documented as of this encounter Care Teams Belting Cutter Relationship Specialty Start Date End Date Zhao Harris MD [address] [place] [address] PCP - General 12/03/20 documented as of this encounter
--- OUTSIDE RECORDS SUMMARY | 2024-12-18 08:30 | XMS_ITS | Encounter Summary ---
Author Organization [facility] Address [address] [place] [address] Care Team Providers Care Sharepoint Solutions Architect Name Role Phone Zhao Harris MD Primary Care Provider + [phone] Reason for Visit * Episode Based Medications (Routine) - Closed Specialty Diagnoses / Procedures Referred By Justice mcgee Referred To Contact Diagnoses Myelodysplasia (myelodysplastic syndrome) (CMS/HCC) Procedures Azacitidine Daily x 7 / Venetoclax Every 28 Days Virgen Vargas MD [address] [address] Phone: tel: fax: Virgen Vargas MD [address] [address] Phone: tel: fax: Referral ID Status Reason Start Date Expiration Date Visits Re quested Visits Authorized [id number] Closed 10/20/2024 04/21/2026 1 91 Encounter Details Date Type Department Care Team (Latest Contact Info) Description 12/18/2024 8:30 AM EDT - 12/18/2024 9:45 AM EDT Hospital Encounter [facility] H Infusion [address] [place] [phone] Myelodysplasia (myelodysplastic syndrome) (CMS/HCC) (Primary Dx); Thrombocytopenia [...] drink first t manav in the morning (EYE-ACCESSIONER) to steady your nerves or to get [...] Sign Reading Time Taken Comments Blood Pressure 128/75 12/18/2024 10:45 AM EDT Pulse 73 12/18/2024 10:45 AM EDT Temperature 36.9 C (98.4 F) 12/18/2024 10:45 AM EDT Respiratory Rate 16 12/18/2024 10:45 AM EDT Oxygen Saturation 95% 12/18/2024 8:46 AM EDT Inhaled Oxygen Concentration - - Weight 85 kg (187 lb 6.3 oz) 12/18/2024 8:46 AM EDT Height 170.2 cm (5' 7 ) 12/18/2024 8:46 AM EDT Body Mass Index 29.35 12/18/2024 8:46 AM EDT documented in this encounter Medications at Time of Discharge acyclovir (Zovirax) 800 MG tabletIndications :Myelodysplasia (myelodysplastic syndrome) (CMS/HCC) Take 1 tablet (800 mg) by mouth in the morning and 1 tablet (800 mg) before bedtime. 60 tablet 3 10/14/2024 bisoprolol (Zebeta) 5 MG tabletIndications :Coronary artery disease involving [place] heart with angina pectoris, unspecified vessel or lesion type (CMS/HCC),Hyperte nsion, unspecified type Take 1 tablet (5 mg) by mouth daily. 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 pectoris, unspecified vessel or [...] encounter Miscellaneous Notes * Addendum Note - Irnea Velasquez - 12/18/2024 8:30 AM EDTEncounter addended by: Irena Velasquez on: 12/19/2024 7:30 AM Actions taken: Order list changed, Diagnosis association updated * Addendum Note - Hugo Benítez - 12/18/2024 8:30 AM EDTEncounter addended by: Hugo Benítez on: 12/22/2024 11:16 AM Actions taken: Charge Capture section accepted documented in this encounter Plan of Treatment Upcoming Encounters Date Type Department Care Team (Late st Contact Info) Description 02/02/2025 11:00 AM EDT Appointment [facility] A Interventional Radiology [address] [place] [address] 02/10/2025 8:30 AM EDT Clinical Support [facility] CC Hematology/BMT and Cellular Therapy Program [address] [phone] 02/10/2025 9:00 AM EDT Office Visit [facility] Hematology/BMT and Cellular Therapy Program [address] [phone] Elaina Boss, PA 800 [facility] [address] [place] [phone] 02/10/2025 10:30 AM EDT Appointment [facility] Infusion Clinic 1 [address] [place] [address] 02/11/2025 2:00 PM EDT Appointment [facility]fusion [facility] 1 [address] [place] [address] 02/12/2025 2:00 PM EDT Appointment [facility]fusion [facility] 1 [address] [place] [address] 02/13/2025 2:00 PM EDT Appointment [facility]fusion [facility] 1 [address] [place] [address] 02/14/2025 2:00 PM EDT Appointment [facility]fusion [facility] 1 [address] [place] [address] 03/10/2025 8:30 AM EDT Clinical Support [facility] Hematology/BMT and Cellular Therapy Program [address] [address] 03/10/2025 9:00 AM EDT Office Visit PAV Hematology/BMT and Cellular Therapy Program [address] [phone] Isaura Wynn, HYBRID TECHNOLOGIST 800 [facility] [address] [phone] 03/10/2025 11:20 AM EDT Office Visit Pav Head, Neck & Respiratory 800 [facility], 2nd [place] [address] Elsa Razo B, HYBRID TECHNOLOGIST [address] [place] [address] documented as of this encounter Procedures Procedure Name Priority Date/Time Associated Diagnosis Comments PLATELET COUNT, BLOOD Routine 12/18/2024 10:55 AM EDT Myelodysplasia (myelodysplastic syndrome) (CMS/HCC) TRANSFUSE PLATELETS Routine 12/18/2024 1 0:25 AM EDT Myelodysplasia (myelodysplastic syndrome) (CMS/HCC) Thrombocytopenia (CMS/HCC) PREPARE PLATELETS Routine 12/18/2024 9:4 5 AM EDT Myelodysplasia (myelodysplastic syndrome) (CMS/HCC) Thrombocytopenia (CMS/HCC) CBC WITH AUTO DIFFERENTIAL Routine 12/18/2024 9:14 AM EDT Myelodysplasia (myelodysplastic syndrome) (CMS/HCC) COMPREHENSIVE METABOLIC PANEL, PLASMA Routine 12/18/2024 9:14 AM EDT Myelodysplasia (myelodysplastic syndrome) (CMS/HCC) EXCEPTION TO STANDARD PRACTICE, PATHOLOGIST INTERPRETATION Routine 12/18/2024 8:26 AM EDT Myelodysplasia (myelodysplastic syndrome) (CMS/HCC) documented in this encounter Results * (ABNORMAL) Platelet count (12/18/2024 10:55 AM EDT) Platelet Count 41(L) 155 - 369 10*3/uL LAB HEMATOLOGY METHOD 12/18/2024 11:06 AM EDT [facility] Blood Blood sample taken from central line / Unknown Venipuncture / Unknown 12/18/2024 10:55 AM EDT 12/18/2024 11:03 AM EDT us Virgen Vargas MD LAB BLOOD ORDERABLES Final Re sult [facility] [address] [place] [address] * Transfuse platelets (12/18/2024 10:52 AM EDT) Kayli Daly Bhavesh CHIU BLOOD TRANSFUSION ORDERA BLES Final Result * Transfuse platelets: 1 Units (12/18/2024 10:52 AM EDT) Kayli Daly Bhavesh CHIU BLOOD TRANSFUSION ORDERA BLES Final Result * Prepare Leukocyte Reduced Platelets: 1 Units (12/18/2024 9:45 AM EDT) Product Code S1804Q56 BLOO D BANK Dispense Status Transfused BLOOD BANK Blood Expiration Date [id number] BLOOD BANK Unit Number [id number] CH B LOOD BANK Product Blood Type 6200 BLOOD BANK Blood Type A+ BLOOD BANK Blood Venous blood specimen / Unknown Kayli Daly Bhavesh CHIU BLOOD BANK PRODUCT ORDER VIKAS Final Result Performing Organization Address City/State/[facility] de Phone Number BLOOD BANK [address] * (ABNORMAL) Comprehensive Metabolic Panel, Plasma (12/18/2024 9:14 AM EDT) Glucose, Plasma 108(H) 74 - 99 mg/dL 12/18/2024 9:51 AM EDT [facility] BUN, Plasma 10 8 - 23 mg/dL 12/18/2024 9:51 AM EDT [facility] Creatinine, Plasma 0.80 0.70 - 1.20 mg/dL 12/18/2024 9:51 AM EDT [facility] BUN/Creatinine Ratio 13 12/18/2024 9:51 AM EDT [facility] Sodium, Plasma 139 136 - 145 mmol/L 12/18/2024 9:51 AM EDT [facility] Potassium, Plasma 4.4 3.6 - 4.9 mmol/L 12/18/2024 9:51 AM EDT [facility] Chloride, Plasma 108(H) 97 - 107 mmol/L 12/18/2024 9:51 AM EDT [facility] CO2, Plasma 22 22 - 29 mmol/L 12/18/2024 9:51 AM EDT [facility] Anion Gap 9 6 - 16 mmol/L 12/18/2024 9:51 AM EDT [facility] Total Calcium, Plasma 8.8(L) 8.9 - 10.2 mg/dL 12/18/2024 9:51 AM EDT [facility] Total Protein 6.8 6.3 - 7.9 g/dL 12/18/2024 9:51 AM EDT [facility] Albumin, Plasma 3.9 3.5 - 5.2 g/dL 12/18/2024 9:51 AM EDT [facility] AST, Plasma 16 10 - 50 U/L 12/18/2024 9:51 AM EDT [facility] ALT, Plasma 16 10 - 50 U/L 12/18/2024 9:51 AM EDT [facility] Alkaline Phosphatase, Plasma 83 40 - 115 U/L 12/18/2024 9:51 AM EDT [facility] Total Bilirubin, Plasma 0.6 0.2 - 1.1 mg/dL 12/18/2024 9:51 AM EDT [facility] eGFRcr 95.8 mL/min/1.7 3m*2 12/18/2024 9:51 AM EDT [facility] Comment:Reported eGFRcr in m L/min/1.73m2 is based the CKD-EPI 2020 equation that does not use a race coefficient. Blood Blood sample taken from central line / Unknown Venipuncture / Unknown 12/18/2024 9:14 AM EDT 12/18/2024 9:20 AM EDT us Virgen Vargas MD LAB BLOOD ORDERABLES Final Re sult [facility] [address] [place] [address] * (ABNORMAL) CBC and differential (12/18/2024 9:14 AM EDT) WBC Count 0.51(LL) 3.70 - 10.30 10*3/uL LAB HEMATOLOGY METHOD 12/18/2024 10:49 AM EDT [facility] RBC Count 2.50(L) 4.60 - 6.10 10*6/uL LAB HEMATOLOGY METHOD 12/18/2024 10:49 AM EDT [facility] HGB 8.1(L) 13.7 - 17.5 g/dL LAB HEMATOLOGY METHOD 12/18/2024 10:49 AM EDT [facility] HCT 21.9(L) 40.0 - 51.0 % LAB HEMATOLOGY METHOD 12/18/2024 10:49 AM EDT [facility] Platelet Count 6(LL) 155 - 369 10*3/uL LAB HEMATOLOGY METHOD 12/18/2024 10:49 AM EDT [facility] MCV 88 79 - 98 fL LAB HEMATOLOGY METHOD 12/18/2024 10:49 AM EDT [facility] MCH 32.4(H) 26.0 - 32.0 pg LAB HEMATOLOGY METHOD 12/18/2024 10:49 AM EDT [facility] MCHC 37.0(H) 30.7 - 35.5 g/dL LAB HEMATOLOGY METHOD 12/18/2024 10:49 AM EDT [facility] RDW 16.7(H) 11.5 - 14.5 % LAB HEMATOLOGY METHOD 12/18/2024 10:49 AM EDT [facility] MPV LAB HEMATOLOGY METHOD 12/18/2024 10:49 AM EDT [facility] Comment:Not Measured nRBC 0.0 <=0.0 per 100 WBCs LAB HEMATOLOGY METHOD 12/18/2024 10:49 AM EDT [facility] Differential Type Automated LAB HEMATOLOGY METHOD 12/18/2024 10:49 AM EDT [facility] Neutrophils % 6 % LAB HEMATOLOGY METHOD 12/18/2024 10:49 AM EDT [facility] Lymphocytes % 90 % LAB HEMATOLOGY METHOD 12/18/2024 10:49 AM EDT [facility] Monocytes % 4 % LAB HEMATOLOGY METHOD 12/18/2024 10:49 AM EDT [facility] Eosinophils % 0 % LAB HEMATOLOGY METHOD 12/18/2024 10:49 AM EDT [facility] Basophils % 0 % LAB HEMATOLOGY METHOD 12/18/2024 10:49 AM EDT [facility] Immature Granulocytes % 0 % LAB HEMATOLOGY METHOD 12/18/2024 10:49 AM EDT [facility] Neutrophils Absolute 0.03(LL) 1.60 - 6.10 10*3/uL LAB HEMATOLOGY METHOD 12/18/2024 10:49 AM EDT [facility] Lymphocytes Absolute 0.46(L) 1.20 - 3.90 10*3/uL LAB HEMATOLOGY METHOD 12/18/2024 10:49 AM EDT [facility] Monocytes Absolute 0.02(L) 0.30 - 0.90 10*3/uL LAB HEMATOLOGY METHOD 12/18/2024 10:49 AM EDT [facility] Eosinophils Absolute 0.00 0.00 - 0.50 10*3/uL LAB HEMATOLOGY METHOD 12/18/2024 10:49 AM EDT [facility] Basophils Absolute 0.00 0.00 - 0.10 10*3/uL LAB HEMATOLOGY METHOD 12/18/2024 10:49 AM EDT [facility] Immature Granulocytes Absolute 0.00 0.00 - 0.06 10*3/uL LAB HEMATOLOGY METHOD 12/18/2024 10:49 AM EDT [facility] Blood Blood sample taken from central line / Unknown Venipuncture / Unknown 12/18/2024 9:14 AM EDT 12/18/2024 9:20 AM EDT Narrative [facility] - 12/18/2024 10:49 AM EDT Therapeutic decision making should be based on absolute values, rather than percentages. 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 Considering the available inventory and the necessity [...] specimens and confirmed the diagnosis or interpretation. 12/20/2024 5:12 PM EDT BLOOD BANK Pathologist Signature, Exception to Standard Practice Reviewed by: Juwan Horton MD 12/20/2024 5:12 PM EDT [facility]LO[facility] BANK LAB CP ASR DISCLAIMER Yes 12/20/2024 5:12 PM EDT BLOOD BANK Blood Bank Lab Only 12/18/2024 8:26 AM EDT 12/19/2024 7:30 AM EDT us Juwan Horton MD LAB BLOOD BANK TEST ORDERAB LES Final Result Performing Organization Address City/State/[facility] Co de Phone Number BLOOD BANK [address] documented in this encounter Visit Diagnoses [...] Container. Chemotherapy: refer to [id number]., On Christina 12/18/24 at 0945, For 1 dose, In 50 mL NSIndications:Myelodysplasia (myelodysplastic syndrome) (CMS/HCC) New Bag 12/18/2024 9:25 AM EDT 150 mg 540 mL/hr ondansetron ODT (Zofran-ODT) disintegrating tablet 16 mg 16 mg, Oral, Once, 1 dose, On Christina 12/18/24 at 0915, RoutineIndications:Myelodyspla haim (myelodysplastic syndrome) (CMS/HCC) Given 12/18/2024 9:23 AM EDT 16 mg documented in this encounter Additional Health Concerns Assessment Noted Time PHQ-9 Depression Total Score: 0 09/11/19 9:15 AM EST A fall risk assessment has been complete d for the patient 12/18/2024 8:46 AM EDT A Body Mass Index follow-up plan has been documented for the patient 12/16/2024 12:23 PM EDT documented as of this encounter Care Teams Sharepoint Solutions Architect Relationship Specialty Start Date End Date Zhao Harris MD [address] [place] [address] [place] [address] PCP - General 12/03/20 documented as of this encounter
--- OUTSIDE RECORDS SUMMARY | 2024-12-18 09:46 | XMS_ITS | Encounter Summary ---
Author Organization Healthcare Address [address] [place] [address] Care Team Providers Care Operations Management Trainee Name Role Phone Zhao Harris MD Primary Care Provider [phone] Encounter Details Date Type Department Care Team (Latest Contact Info) Description 12/18/2024 9:46 AM EDT - 12/18/2024 11:59 PM EDT Hospital Encounter [facility] [address] [place] [address] Myelodysplasia (myelodysplastic syndrome) (CMS/HCC) (Primary Dx) Discharge [...] drink first t manav in the morning (EYE-HAT CHECKER) to steady your nerves or to get [...] 5 MG tabletIndications :Coronary artery disease involving [place] heart with angina pectoris, unspecified vessel or lesion type (CMS/HCC),Hyperte nsion, unspecified type Take 1 tablet (5 mg) by mouth daily. 90 tablet 3 09/11/2024 HYDROcodone-aceta minophen ([place]) 5-325 MG tablet Take 1 tablet by [...] MG SL tabletIndications :Coronary artery disease involving [place] heart with angina pectoris, unspecified vessel or [...] Appointment [facility] Interventional Radiology [address] [place] [address] 02/10/2025 8:30 AM EDT Clinical Support [facility] Hematology/BMT and Cellular Therapy Program [address] [address] 02/10/2025 9:00 AM EDT Office Visit [facility] Hematology/BMT and Cellular Therapy Program [address] [address] Elaina Boss, PA 800 [facility] [address] [place] [phone] 02/10/2025 10:30 AM EDT Appointment [facility] 1 [address] [place] [address] 02/11/2025 2:00 PM EDT Appointment [facility] 1 [address] [place] [address] 02/12/2025 2:00 PM EDT Appointment [facility] 1 [address] [place] [address] 02/13/2025 2:00 PM EDT Appointment [facility] 1 [address] [place] [address] 02/14/2025 2:00 PM EDT Appointment [facility] 1 [address] [place] [address] 03/10/2025 8:30 AM EDT Clinical Support [facility] Hematology/BMT and Cellular Therapy Program [address] [address] 03/10/2025 9:00 AM EDT Office Visit [facility] Hematology/BMT and Cellular Therapy Program [address] [phone] Isaura Wynn, HOTEL RECREATIONAL FACILITIES MANAGER 800 [facility] [address] [place] [phone] 03/10/2025 11:20 AM EDT Office Visit Pav [facility] Head, Neck & Respiratory 800 [facility], 2nd [place] [address] Elsa Razo, HOTEL RECREATIONAL FACILITIES MANAGER 800 [place] [address] documented as of this encounter Visit Diagnoses [...] documented as of this encounter Care Teams Operations Management Trainee Relationship Specialty Start Date End Date Zhao Harris MD [address] [place] [phone] PCP - General 12/03/20 documented as of this encounter
--- OUTSIDE RECORDS SUMMARY | 2024-12-19 08:30 | XMS_ITS | Encounter Summary ---
Author Organization [facility] Address [address] [place] [address] Care Team Providers Care Flower Shop Laborer/Designer Name Role Phone Zhao Harris MD Primary Care Provider + [phone] Reason for Visit * Episode Based Medications (Routine) - Closed Specialty Diagnoses / Procedures Referred By Justice mcgee Referred To Contact Diagnoses Myelodysplasia (myelodysplastic syndrome) (CMS/HCC) Procedures Azacitidine Daily x 7 / Venetoclax Every 28 Days Virgen Vargas MD [address] [address] Phone: tel: fax: Virgen Vargas MD [address] [address] Phone: tel: fax: Referral ID Status Reason Start Date Expiration Date Visits Re quested Visits Authorized [id number] Closed 10/20/2024 04/21/2026 1 91 Encounter Details Date Type Department Care Team (Latest Contact Info) Description 12/19/2024 8:30 AM EDT - 12/19/2024 11:59 PM EDT Hospital Encounter [facility] Infusion Clinic 2 [address] [place] [phone] Myelodysplasia (myelodysplastic syndrome) (CMS/HCC) (Primary Dx) Discharge [...] drink first t manav in the morning (EYE-CAMPUS RECEPTIONIST) to steady your nerves or to get [...] 5 MG tabletIndications :Coronary artery disease involving [place] heart with angina pectoris, unspecified vessel or lesion type (CMS/HCC),Hyperte nsion, unspecified type Take 1 tablet (5 mg) by mouth daily. 90 tablet 3 09/11/2024 HYDROcodone-aceta minophen ([place]) 5-325 MG tablet Take 1 tablet by [...] MG SL tabletIndications :Coronary artery disease involving [place] heart with angina pectoris, unspecified vessel or [...] Appointment [facility] Interventional Radiology [address] [place] [address] 02/10/2025 8:30 AM EDT Clinical Support [facility] Hematology/BMT and Cellular Therapy Program [address] [address] 02/10/2025 9:00 AM EDT Office Visit [facility] Hematology/BMT and Cellular Therapy Program [address] [address] Elaina Boss PA 800 [facility] [address] [place] [address] 02/10/2025 10:30 AM EDT Appointment [facility] Infusion [facility] 1 [address] [place] [address] 02/11/2025 2:00 PM EDT Appointment [facility] Infusion [facility] 1 [address] [place] [address] 02/12/2025 2:00 PM EDT Appointment [facility] Infusion Clinic 1 [address] [place] [address] 02/13/2025 2:00 PM EDT Appointment [facility] Infusion Clinic 1 [address] [place] [address] 02/14/2025 2:00 PM EDT Appointment [facility] Infusion [facility] 1 [address] [place] [address] 03/10/2025 8:30 AM EDT Clinical Support [facility] Hematology/BMT and Cellular Therapy Program [address] [address] 03/10/2025 9:00 AM EDT Office Visit [facility] Hematology/BMT and Cellular Therapy Program [address] [address] Isaura Wynn, SCHOOL BUS AIDE 800 [facility] [address] [place] [phone] 03/10/2025 11:20 AM EDT Office Visit [facility] CC Head, Neck & Respiratory 800 [facility], 2nd [place] [phone] Elsa Razo, SCHOOL BUS AIDE [address] [place] [phone] documented as of this encounter Visit Diagnoses [...] Sun12/19/24 at 0900, RoutineIndications:Myelodyspla haim (myelodysplastic syndrome) ([facility]) Given 12/19/2024 8:41 AM EDT 16 mg [...] documented as of this encounter Care Teams Flower Shop Laborer/Designer Relationship Specialty Start Date End Date Zhao Harris MD [address] [place] [address] PCP - General 12/03/20 documented as of this encounter
--- OUTSIDE RECORDS SUMMARY | 2024-12-20 08:08 | XMS_ITS | Encounter Summary ---
Author Organization [facility] Address [address] [address] Care Team Providers Care Cotton Farmer Name Role Phone Zhao Harris MD Primary Care Provider + [phone] Reason for Visit * Episode Based Medications (Routine) - Closed Specialty Diagnoses / Procedures Referred By Justice mcgee Referred To Contact Diagnoses Myelodysplasia (myelodysplastic syndrome) (CMS/HCC) Procedures Azacitidine Daily x 7 / Venetoclax Every 28 Days Virgen Vargas MD [address] [place] [phone] Phone: tel: fax: Virgen Vargas MD [address] [phone] Phone: tel: fax: Referral ID Status Reason Start Date Expiration Date Visits Re quested Visits Authorized [id number] Closed 10/20/2024 04/21/2026 1 91 Encounter Details Date Type Department Care Team (Latest Contact Info) Description 12/20/2024 8:08 AM EDT - 12/20/2024 11:59 PM EDT Hospital Encounter [facility] Infusion Clinic 1 [address] [place] [phone] Myelodysplasia (myelodysplastic syndrome) (CMS/HCC) (Primary Dx); Thrombocytopenia [...] drink first t manav in the morning (EYE-ACCOUNTANT SUPERVISOR) to steady your nerves or to [...] 5 MG tabletIndications :Coronary artery disease involving [place] heart with angina pectoris, unspecified vessel or lesion type (CMS/HCC),Hyperte nsion, unspecified type Take 1 tablet (5 mg) by mouth daily. 90 tablet 3 09/11/2024 HYDROcodone-aceta minophen ([place]) 5-325 MG tablet Take 1 tablet by [...] MG SL tabletIndications :Coronary artery disease involving [place] heart with angina pectoris, unspecified vessel or [...] Upcoming Encounters Date Type Department Care Team ([facility] st Contact Info) Description 02/02/2025 11:00 AM EDT Appointment [facility] A Interventional Radiology [address] [place] [address] 02/10/2025 8:30 AM EDT Clinical Support [facility] Hematology/BMT and Cellular Therapy Program [address] [phone] 02/10/2025 9:00 AM EDT Office Visit [facility] Hematology/BMT and Cellular Therapy Program [address] [phone] Elaina Boss PA 800 [facility] [address] [place] [phone] 02/10/2025 10:30 AM EDT Appointment [facility] 1 [address] [place] [phone] 02/11/2025 2:00 PM EDT Appointment [facility] 1 [address] [place] [address] 02/12/2025 2:00 PM EDT Appointment [facility] 1 [address] [place] [phone] 02/13/2025 2:00 PM EDT Appointment [facility] 1 [address] [place] [phone] 02/14/2025 2:00 PM EDT Appointment [facility] 1 [address] [place] [phone] 03/10/2025 8:30 AM EDT Clinical Support [facility] CC Hematology/BMT and Cellular Therapy Program [address] [phone] 03/10/2025 9:00 AM EDT Office Visit [facility] CC Hematology/BMT and Cellular Therapy Program [address] [phone] Isaura Wynn, ROAD DRIVER 800 [facility] [address] [place] [phone] 03/10/2025 11:20 AM EDT Office Visit Pav CC Head, Neck & Respiratory 800 [facility], 2nd [place] [phone] Elsa Razo, ROAD DRIVER 800 [place] [phone] documented as of this encounter Procedures Procedure [...] ORDERABLE S Final Result BLOOD BANK 800 [place] [address], * Prepare Leukocyte Reduced RBC: 1 Units, Irradiated (12/20/2024 10:01 AM EDT) Product Code [id number] CH BLOO D BANK Dispense Status Transfused BLOOD BANK Blood Expiration Date [id number] BLOOD BANK Unit Number [id number] CH B LOOD BANK Product Blood Type 9500 BLOOD BANK Blood Type O- BLOOD BANK Crossmatch Compatible BLOOD BANK Other Kayli CHIU BLOOD BANK PRODUCT ORDER VIKAS Final Result BLOOD BANK [address] [place] [address], * (ABNORMAL) CBC and differential (12/20/2024 9:00 AM EDT) WBC Count 0.59(LL) 3.70 - 10.30 10*3/uL LAB HEMATOLOGY METHOD 12/20/2024 10:25 AM EDT [facility] RBC Count 2.46(L) 4.60 - 6.10 10*6/uL LAB HEMATOLOGY METHOD 12/20/2024 10:25 AM EDT [facility] HGB 7.8(L) 13.7 - 17.5 g/dL LAB HEMATOLOGY METHOD 12/20/2024 10:25 AM EDT [facility] HCT 22.0(L) 40.0 - 51.0 % LAB HEMATOLOGY METHOD 12/20/2024 10:25 AM EDT [facility] Platelet Count 22(L) 155 - 369 10*3/uL LAB HEMATOLOGY METHOD 12/20/2024 10:25 AM EDT [facility] MCV 89 79 - 98 fL LAB HEMATOLOGY METHOD 12/20/2024 10:25 AM EDT [facility] MCH 31.7 26.0 - 32.0 pg LAB HEMATOLOGY METHOD 12/20/2024 10:25 AM EDT [facility] MCHC 35.5 30.7 - 35.5 g/dL LAB HEMATOLOGY METHOD 12/20/2024 10:25 AM EDT [facility] RDW 16.0(H) 11.5 - 14.5 % LAB HEMATOLOGY METHOD 12/20/2024 10:25 AM EDT [facility] MPV 11.3 8.8 - 12.5 fL LAB HEMATOLOGY METHOD 12/20/2024 10:25 AM EDT [facility] nRBC 0.0 <=0.0 per 100 WBCs LAB HEMATOLOGY METHOD 12/20/2024 10:25 AM EDT [facility] Differential Type Automated LAB HEMATOLOGY METHOD 12/20/2024 10:25 AM EDT [facility] Neutrophils % 5 % LAB HEMATOLOGY METHOD 12/20/2024 10:25 AM EDT [facility] Lymphocytes % 92 % LAB HEMATOLOGY METHOD 12/20/2024 10:25 AM EDT [facility] Monocytes % 3 % LAB HEMATOLOGY METHOD 12/20/2024 10:25 AM EDT [facility] Eosinophils % 0 % LAB HEMATOLOGY METHOD 12/20/2024 10:25 AM EDT [facility] Basophils % 0 % LAB HEMATOLOGY METHOD 12/20/2024 10:25 AM EDT [facility] Immature Granulocytes % 0 % LAB HEMATOLOGY METHOD 12/20/2024 10:25 AM EDT [facility] Neutrophils Absolute 0.03(LL) 1.60 - 6.10 10*3/uL LAB HEMATOLOGY METHOD 12/20/2024 10:25 AM EDT [facility] Lymphocytes Absolute 0.54(L) 1.20 - 3.90 10*3/uL LAB HEMATOLOGY METHOD 12/20/2024 10:25 AM EDT [facility] Monocytes Absolute 0.02(L) 0.30 - 0.90 10*3/uL LAB HEMATOLOGY METHOD 12/20/2024 10:25 AM EDT [facility] Eosinophils Absolute 0.00 0.00 - 0.50 10*3/uL LAB HEMATOLOGY METHOD 12/20/2024 10:25 AM EDT [facility] Basophils Absolute 0.00 0.00 - 0.10 10*3/uL LAB HEMATOLOGY METHOD 12/20/2024 10:25 AM EDT [facility] Immature Granulocytes Absolute 0.00 0.00 - 0.06 10*3/uL LAB HEMATOLOGY METHOD 12/20/2024 10:25 AM EDT [facility] Blood Blood sample taken from central line / Unknown (Central Line) Existing Catheter / Unknown 12/20/2024 9:00 AM EDT 12/20/2024 9:13 AM EDT Narrative [facility] - 12/20/2024 10:25 AM EDT Therapeutic decision making should be based on absolute values, rather than percentages. us Christina Ramos MD LAB BLOOD ORDERABLES Final Resul t [facility] [address] [place] [address] documented in this encounter Visit Diagnoses Diagnosis [...] documented as of this encounter Care Teams Cotton Farmer Relationship Specialty Start Date End Date Zhao Harris MD [address] [place] [address] [place] [address] PCP - General 12/03/20 documented as of this encounter
--- OUTSIDE RECORDS SUMMARY | 2024-12-21 08:30 | XMS_ITS | Encounter Summary ---
Author Organization [facility] Address [address] [place] [address] Care Team Providers Care Market Research Executive Name Role Phone Zhao Harris MD Primary Care Provider + [phone] Reason for Visit * Episode Based Medications (Routine) - Closed Specialty Diagnoses / Procedures Referred By Justice mcgee Referred To Contact Diagnoses Myelodysplasia (myelodysplastic syndrome) (CMS/HCC) Procedures Azacitidine Daily x 7 / Venetoclax Every 28 Days Virgen Vargas MD [address] [address] Phone: tel: fax: Virgen Vargas MD [address] [address] Phone: tel: fax: Referral ID Status Reason Start Date Expiration Date Visits Re quested Visits Authorized [id number] Closed 10/20/2024 04/21/2026 1 91 Encounter Details Date Type Department Care Team (Latest Contact Info) Description 12/21/2024 8:30 AM EDT - 12/21/2024 11:59 PM EDT Hospital Encounter [facility] Infusion Clinic 1 [address] [place] [phone] Myelodysplasia (myelodysplastic syndrome) (CMS/HCC) (Primary Dx) Discharge [...] drink first t manav in the morning (EYE-CRITICAL POWER TECHNICIAN) to steady your nerves or to [...] 5 MG tabletIndications :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, unspecified vessel or [...] Appointment [facility] Interventional Radiology [address] [place] [address] 02/10/2025 8:30 AM EDT Clinical Support [facility] Hematology/BMT and Cellular Therapy Program [address] [place] [address] 02/10/2025 9:00 AM EDT Office Visit [facility] Hematology/BMT and Cellular Therapy Program [address] [address] Elaina Boss, ARAM 800 [facility] [address] [place] [address] 02/10/2025 10:30 AM EDT Appointment [facility] Infusion [facility] 1 [address] [place] [address] 02/11/2025 2:00 PM EDT Appointment [facility] 1 [address] [place] [address] 02/12/2025 2:00 PM EDT Appointment [facility] 1 [address] [place] [address] 02/13/2025 2:00 PM EDT Appointment [facility] 1 [address] [place] [address] 02/14/2025 2:00 PM EDT Appointment [facility] Infusion Clinic 1 [address] [place] [address] 03/10/2025 8:30 AM EDT Clinical Support [facility] Hematology/BMT and Cellular Therapy Program [address] [address] 03/10/2025 9:00 AM EDT Office Visit [facility] Hematology/BMT and Cellular Therapy Program [address] [phone] Isaura Wynn, DIELECTRIC MACHINE OPERATOR 800 [facility] [address] [place] [phone] 03/10/2025 11:20 AM EDT Office Visit [facility]ck [facility] Res[facility] 800 [facility], [address] [place] [phone] Elsa Razo, DIELECTRIC MACHINE OPERATOR [address] [place] [phone] documented as of this encounter Visit Diagnoses [...] documented as of this encounter Care Teams Market Research Executive Relationship Specialty Start Date End Date Zhao Harris MD [address] [place] [address] PCP - General 12/03/20 documented as of this encounter
--- OUTSIDE RECORDS SUMMARY | 2024-12-22 08:24 | XMS_ITS | Encounter Summary ---
Author Organization [facility] Address [address] [place] [address] Care Team Providers Care Analyst Microbiology Lab Name Role Phone Zhao Harris MD Primary Care Provider + [phone] Reason for Visit * Episode Based Medications (Routine) - Closed Specialty Diagnoses / Procedures Referred By Justice mcgee Referred To Contact Diagnoses Myelodysplasia (myelodysplastic syndrome) (CMS/HCC) Procedures Azacitidine Daily x 7 / Venetoclax Every 28 Days Virgen Vargas MD 800 [facility] [address] [address] Phone: tel: fax: Virgen Vargas MD [address] [address] Phone: tel: fax: Referral ID Status Reason Start Date Expiration Date Visits Re quested Visits Authorized [id number] Closed 10/20/2024 04/21/2026 1 91 Encounter Details Date Type Department Care Team (Latest Contact Info) Description 12/22/2024 8:24 AM EDT - 12/22/2024 9:57 AM EDT Hospital Encounter [facility] H Infusion [address] [place] [phone] Myelodysplasia (myelodysplastic syndrome) (CMS/HCC) (Primary Dx); Thrombocytopenia [...] drink first t manav in the morning (EYE-HIGH ENERGY FORMING EQUIPMENT OPERATOR) to steady your nerves or to [...] 5 MG tabletIndications :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 pectoris, unspecified vessel or [...] Upcoming Encounters Date Type Department Care Team ([facility] st Contact Info) Description 02/02/2025 11:00 AM EDT Appointment PAV A Interventional Radiology [address] [place] [address] 02/10/2025 8:30 AM EDT Clinical Support P[facility] CC Hematology/BMT and Cellular Therapy Program [address] [place] [address] 02/10/2025 9:00 AM EDT Office Visit PAV Hematology/BMT and Cellular Therapy Program [address] [place] [address] Elaina Boss, ARAM 800 [facility] [address] [place] [phone] 02/10/2025 10:30 AM EDT Appointment [facility] In[facility] 1 [address] [place] [phone] 02/11/2025 2:00 PM EDT Appointment [facility] 1 [address] [place] [address] 02/12/2025 2:00 PM EDT Appointment [facility] 1 [address] [place] [address] 02/13/2025 2:00 PM EDT Appointment [facility] 1 [address] [place] [phone] 02/14/2025 2:00 PM EDT Appointment [facility] 1 [address] [place] [phone] 03/10/2025 8:30 AM EDT Clinical Support P[facility] CC Hematology/BMT and Cellular Therapy Program [address] [phone] 03/10/2025 9:00 AM EDT Office Visit PAV Hematology/BMT and Cellular Therapy Program [address] [phone] Isaura Wynn, NETWORK OPERATIONS LEAD 800 [facility] [address] [place] [phone] 03/10/2025 11:20 AM EDT Office Visit Pav CC Head, Neck & Respiratory 800 [facility], 2nd [place] [phone] Elsa Razo, NETWORK OPERATIONS LEAD [address] [place] [phone] documented as of this encounter Procedures Procedure [...] (ABNORMAL) Platelet count (12/22/2024 10:57 AM EDT) [facility] Platelet Count 36(L) 155 - 369 10*3/uL LAB HEMATOLOGY METHOD 12/22/2024 11:14 AM EDT [facility] Blood Venous blood specimen / Unknown Venipuncture / Unknown 12/22/2024 10:57 AM EDT 12/22/2024 11:04 AM EDT Virgen Vargas MD LAB BLOOD ORDERABLES Final Re sult [facility] [address] [place] [address] * Prepare Leukocyte Reduced Platelets: 1 Units (12/22/2024 9:44 AM EDT) Pathologist [facility] [place] Product Code C0393G32 BLOO D BANK Dispense Status Transfused BLOOD BANK Blood Expiration Date [id number] BLOOD BANK Unit Number [id number] B LOOD BANK Product Blood Type 0600 BLOOD BANK Blood Type A- CH BLOOD BANK Blood Venous blood specimen / Unknown us Kayli CHIU BLOOD BANK PRODUCT ORDER VIKAS Final Result BLOOD BANK [address] [place] [address], * (ABNORMAL) CBC and Differential (12/22/2024 8:53 AM EDT) WBC Count 0.50(LL) 3.70 - 10.30 10*3/uL LAB HEMATOLOGY METHOD 12/22/2024 11:33 AM EDT [facility] RBC Count 2.90(L) 4.60 - 6.10 10*6/uL LAB HEMATOLOGY METHOD 12/22/2024 11:33 AM EDT [facility] HGB 8.9(L) 13.7 - 17.5 g/dL LAB HEMATOLOGY METHOD 12/22/2024 11:33 AM EDT [facility] HCT 25.0(L) 40.0 - 51.0 % LAB HEMATOLOGY METHOD 12/22/2024 11:33 AM EDT [facility] Platelet Count 5(LL) 155 - 369 10*3/uL LAB HEMATOLOGY METHOD 12/22/2024 11:33 AM EDT [facility] MCV 86 79 - 98 fL LAB HEMATOLOGY METHOD 12/22/2024 11:33 AM EDT [facility] MCH 30.7 26.0 - 32.0 pg LAB HEMATOLOGY METHOD 12/22/2024 11:33 AM EDT [facility] MCHC 35.6(H) 30.7 - 35.5 g/dL LAB HEMATOLOGY METHOD 12/22/2024 11:33 AM EDT [facility] RDW 15.6(H) 11.5 - 14.5 % LAB HEMATOLOGY METHOD 12/22/2024 11:33 AM EDT [facility] MPV LAB HEMATOLOGY METHOD 12/22/2024 11:33 AM EDT [facility] Comment:Not Measured nRBC 0.0 <=0.0 per 100 WBCs LAB HEMATOLOGY METHOD 12/22/2024 11:33 AM EDT [facility] Differential Type Automated LAB HEMATOLOGY METHOD 12/22/2024 11:33 AM EDT [facility] Neutrophils % 12 % LAB HEMATOLOGY METHOD 12/22/2024 11:33 AM EDT [facility] Lymphocytes % 86 % LAB HEMATOLOGY METHOD 12/22/2024 11:33 AM EDT [facility] Monocytes % 2 % LAB HEMATOLOGY METHOD 12/22/2024 11:33 AM EDT [facility] Eosinophils % 0 % LAB HEMATOLOGY METHOD 12/22/2024 11:33 AM EDT [facility] Basophils % 0 % LAB HEMATOLOGY METHOD 12/22/2024 11:33 AM EDT [facility] Immature Granulocytes % 0 % LAB HEMATOLOGY METHOD 12/22/2024 11:33 AM EDT [facility] Neutrophils Absolute 0.06(LL) 1.60 - 6.10 10*3/uL LAB HEMATOLOGY METHOD 12/22/2024 11:33 AM EDT [facility] Lymphocytes Absolute 0.43(L) 1.20 - 3.90 10*3/uL LAB HEMATOLOGY METHOD 12/22/2024 11:33 AM EDT [facility] Monocytes Absolute 0.01(L) 0.30 - 0.90 10*3/uL LAB HEMATOLOGY METHOD 12/22/2024 11:33 AM EDT [facility] Eosinophils Absolute 0.00 0.00 - 0.50 10*3/uL LAB HEMATOLOGY METHOD 12/22/2024 11:33 AM EDT [facility] Basophils Absolute 0.00 0.00 - 0.10 10*3/uL LAB HEMATOLOGY METHOD 12/22/2024 11:33 AM EDT [facility] Immature Granulocytes Absolute 0.00 0.00 - 0.06 10*3/uL LAB HEMATOLOGY METHOD 12/22/2024 11:33 AM EDT [facility] Blood Venous blood specimen / Unknown Venipuncture / Unknown 12/22/2024 8:53 AM EDT 12/22/2024 8:59 AM [facility]T [facility] 12/22/[facility]24 11:33 AM EDT Therapeutic decision making should be based on absolute values, rather than percentages. us Virgen Vargas MD LAB BLOOD ORDERABLES Final Re sult [facility] [address] [place] [address] * (ABNORMAL) Comprehensive Metabolic Panel, Plasma (12/22/2024 8:53 AM EDT) Glucose, Plasma 107(H) 74 - 99 mg/dL 12/22/2024 9:29 AM EDT [facility] BUN, Plasma 14 8 - 23 mg/dL 12/22/2024 9:29 AM EDT [facility] Creatinine, Plasma 0.93 0.70 - 1.20 mg/dL 12/22/2024 9:29 AM EDT [facility] BUN/Creatinine Ratio 15 12/22/2024 9:29 AM EDT [facility] Sodium, Plasma 136 136 - 145 mmol/L 12/22/2024 9:29 AM EDT [facility] Potassium, Plasma 4.3 3.6 - 4.9 mmol/L 12/22/2024 9:29 AM EDT [facility] Chloride, Plasma 106 97 - 107 mmol/L 12/22/2024 9:29 AM EDT [facility] CO2, Plasma 22 22 - 29 mmol/L 12/22/2024 9:29 AM EDT [facility] Anion Gap 8 6 - 16 mmol/L 12/22/2024 9:29 AM EDT [facility] Total Calcium, Plasma 9.1 8.9 - 10.2 mg/dL 12/22/2024 9:29 AM EDT [facility] Total Protein 7.0 6.3 - 7.9 g/dL 12/22/2024 9:29 AM EDT [facility] Albumin, Plasma 3.9 3.5 - 5.2 g/dL 12/22/2024 9:29 AM EDT [facility] AST, Plasma 16 10 - 50 U/L 12/22/2024 9:29 AM EDT [facility] ALT, Plasma 12 10 - 50 U/L 12/22/2024 9:29 AM EDT [facility] Alkaline Phosphatase, Plasma 83 40 - 115 U/L 12/22/2024 9:29 AM EDT [facility] Total Bilirubin, Plasma 0.7 0.2 - 1.1 mg/dL 12/22/2024 9:29 AM EDT [facility] eGFRcr 88.9 mL/min/1.7 3m*2 12/22/2024 9:29 AM EDT [facility] Comment:Reported eGFRcr in m L/min/1.73m2 is based the CKD-EPI 2020 equation that does not use a race coefficient. Blood Venous blood specimen / Unknown Venipuncture / Unknown 12/22/2024 8:53 AM EDT 12/22/2024 8:59 AM EDT us Virgen Vargas MD LAB BLOOD ORDERABLES Final Re sult [facility] [address] [place] [address] documented in this encounter Visit Diagnoses Diagnosis [...] documented as of this encounter Care Teams Analyst Microbiology Lab Relationship Specialty Start Date End Date Zhao Harris MD [address] [place] [address] PCP - General 12/03/20 documented as of this encounter
--- OUTSIDE RECORDS SUMMARY | 2024-12-22 09:58 | XMS_ITS | Encounter Summary ---
Author Organization Healthcare Address [address] [place] [address] Care Team Providers Care Salvage Supervisor Name Role Phone Zhao Harris MD Primary Care Provider [phone] Encounter Details Date Type Department Care Team (Latest Contact Info) Description 12/22/2024 9:58 AM EDT - 12/22/2024 11:59 PM EDT Hospital Encounter [facility] [address] [place] [address] Myelodysplasia (myelodysplastic syndrome) (CMS/HCC) (Primary Dx) Discharge [...] first t manav in the morning (EYE-INTERNET MERCHANT) to steady your nerves or to get [...] MG tabletIndications :Coronary artery disease involving grand traverse heart with angina pectoris, unspecified vessel or lesion type (CMS/HCC),Hyperte nsion, unspecified type Take 1 tablet (5 mg) by mouth daily. 90 tablet 3 09/11/2024 HYDROcodone-aceta minophen ([place]) 5-325 MG tablet Take 1 tablet by [...] SL tabletIndications :Coronary artery disease involving grand traverse heart with angina pectoris, unspecified vessel or [...] Appointment [facility] A Interventional Radiology [address] [place] [address] 02/10/2025 8:30 AM EDT Clinical Support P[facility] Hematology/BMT and Cellular Therapy Program [address] [address] 02/10/2025 9:00 AM EDT Office Visit [facility] Hematology/BMT and Cellular Therapy Program [address] [address] Elaina Boss, PA 800 [facility] [address] [place] [phone] 02/10/2025 10:30 AM EDT Appointment [facility] 1 [address] [place] [address] 02/11/2025 2:00 PM EDT Appointment [facility] 1 [address] [place] [address] 02/12/2025 2:00 PM EDT Appointment [facility] 1 [address] [place] [address] 02/13/2025 2:00 PM EDT Appointment [facility] 1 [address] [place] [address] 02/14/2025 2:00 PM EDT Appointment [facility] Infusion Clinic 1 [address] [place] [address] 03/10/2025 8:30 AM EDT Clinical Support [facility] Hematology/BMT and Cellular Therapy Program [address] [address] 03/10/2025 9:00 AM EDT Office Visit [facility] Hematology/BMT and Cellular Therapy Program [address] [address] Isaura Wynn, ESTRELLA 800 [facility] [address] [place] [phone] 03/10/2025 11:20 AM EDT Office Visit Pav CC Head, Neck & Respiratory 800 [facility], 2nd [place] [address] Elsa Razo, SUPERVISOR TUMBLERS 800 [place] [address] documented as of this encounter Visit Diagnoses [...] End Date Zhao Harris MD [id number] [address] [address] PCP - General 12/03/20 documented as of this encounter
--- OUTSIDE RECORDS SUMMARY | 2025-01-06 08:30 | XMS_ITS | Encounter Summary ---
Author Organization [facility] Address [address] [place] [address] Care Team Providers Care Fruit Tester Name Role Phone Zhao Harris MD Primary Care Provider [phone] Reason for Visit * Reason Comments Labs Encounter Details Date Type Department Care Team ([facility] Contact Info) Description 01/06/2025 8:30 AM EDT Clinical Support [facility] CC Hematology/BMT and Cellular Therapy Program [address] [place] [address] [place] [address] Nate Ponce, RN Social History Tobacco Use [...] drink first t manav in the morning (EYE-MAC ARTIST) to steady your nerves or to [...] Appointment [facility] A Interventional Radiology [address] [place] [address] 02/10/2025 8:30 AM EDT Clinical Support [facility] Hematology/BMT and Cellular Therapy Program [address] [place] [phone] 02/10/2025 9:00 AM EDT Office Visit [facility] Hematology/BMT and Cellular Therapy Program [address] [phone] Elaina Boss, [place] 800 [facility] [address] [place] [address] 02/10/2025 10:30 AM EDT Appointment [facility]fusion [facility] 1 [address] [place] [address] 02/11/2025 2:00 PM EDT Appointment [facility] 1 [address] [place] [address] 02/12/2025 2:00 PM EDT Appointment [facility] 1 [address] [place] [address] 02/13/2025 2:00 PM EDT Appointment [facility] 1 [address] [place] [address] 02/14/2025 2:00 PM EDT Appointment [facility] 1 [address] [place] [address] 03/10/2025 8:30 AM EDT Clinical Support [facility] CC Hematology/BMT and Cellular Therapy Program 750 [facility] [place] [address] 03/10/2025 9:00 AM EDT Office Visit [facility] CC Hematology/BMT and Cellular Therapy Program 750 [facility], [address] [place] [phone] Isaura Wynn, ASSISTANT TECHNICIAN 800 [facility] [address] [place] [phone] 03/10/2025 11:20 AM EDT Office Visit Pav CC Head, Neck & Respiratory 800 [facility], 2nd [place] [phone] Elsa Razo, ASSISTANT TECHNICIAN [address] [place] [phone] documented as of this encounter Visit Diagnoses [...] documented as of this encounter Care Teams Fruit Tester Relationship Specialty Start Date End Date Zhao Harris MD [address] [place] [phone] PCP - General 12/03/20 documented as of this encounter
--- OUTSIDE RECORDS SUMMARY | 2025-01-06 09:00 | XMS_ITS | Encounter Summary ---
Author Organization [facility] Address [address] [place] [address] Care Team Providers Care Private Chef Name Role Phone Zhao Harris MD Primary Care Provider [phone] Reason for Visit * Reason Comments Procedure * Genetic Testing (Routine) - Authorized Specialty Diagnoses / Procedures Referred By Justice mcgee Referred To Contact Lab Diagnoses Myelodysplasia (myelodysplastic syndrome) (CMS/HCC) Procedures Leukemia/Lymphoma - Immunophenotyping by Flow Cytometry Virgen Vargas MD 800 [facility] [address] [address] Phone: tel: fax: Referral ID Status Reason Start Date Expiration Date V isits Requested Visits Authorized [id number] Authorized 12/18/2024 06/19/2026 1 1 Encounter Details Date Type Department Care Team (Latest Contact Info) Description 01/06/2025 9:00 AM EDT Procedure Visit P[facility] CC Hematology/BMT and Cellular Therapy Program [address] [place] [address] Kierra Novak APRN 800 [facility] [address] [address] Myelodysplasia (myelodysplastic syndrome) (CMS/HCC) Social [...] drink first t manav in the morning (EYE-JACK PRIZER) to steady your nerves or to get [...] yes Risks discussed: Bleeding, infection and pain [place] protocol: Procedure explained and questions answered to [...] Appointment PAV A Interventional Radiology [address] [place] [address] 02/10/2025 8:30 AM EDT Clinical Support PAV Hematology/BMT and Cellular Therapy Program [address] [address] 02/10/2025 9:00 AM EDT Office Visit PAV Hematology/BMT and Cellular Therapy Program [address] [address] Elaina Boss PA 800 [facility] [address] [place] [address] 02/10/2025 10:30 AM EDT Appointment [facility] Infusion Clinic 1 [address] [place] [address] 02/11/2025 2:00 PM EDT Appointment [facility] 1 [address] [place] [address] 02/12/2025 2:00 PM EDT Appointment [facility] 1 [address] [place] [address] 02/13/2025 2:00 PM EDT Appointment [facility] 1 [address] [place] [address] 02/14/2025 2:00 PM EDT Appointment [facility] 1 [address] [place] [address] 03/10/2025 8:30 AM EDT Clinical Support [facility] CC Hematology/BMT and Cellular Therapy Program [address] [address] 03/10/2025 9:00 AM EDT Office Visit [facility] CC Hematology/BMT and Cellular Therapy Program [address] [address] Isaura Wynn, INJECTION MACHINE OPERATOR 800 [facility] [address] [place] [phone] 03/10/2025 11:20 AM EDT Office Visit Pav CC Head, Neck & Respiratory 800 [facility], 2nd [place] [address] Elsa Razo, INJECTION MACHINE OPERATOR [address] [place] [phone] documented as of this encounter Procedures Procedure [...] yes Risks discussed: Bleeding, infection and pain [place] protocol: Procedure explained and questions answered to [...] (01/06/2025 9:48 AM EDT) Pathologist [facility] Clinical Indication AML 01/07/2025 10:18 AM T [facility] Flow Cytometry Interpretation APPROXIMATELY 16% MYELOID BLASTS; EXPRESSING CD34, CD117, CD13, CD33, HLA-DR, PARTIAL CD7, PARTIAL CD123, VARIABLE CD38, AND MODERATE CD45, SEE COMMENT, BONE MARROW ASPIRATE. 01/07/2025 10:18 AM EDT [facility] Comments Specimen viability is [...] disease. Final interpretation requires morphologic correlation ([id number]). The following antibodies were used in this analysis: CD45, CD2, CD3, CD4, CD5, CD7, CD8, CD10, CD13, CD14, CD15, CD16, CD19, CD20, CD33, CD34, CD38, CD56, CD117, HLA-DR, kappa surface light chains, lambda surface light chains, CD123 01/07/2025 10:18 AM [facility] Disclaimer This test was developed and its performance characteristics determined by the Immuno-Molecular Pathology Laboratory at the [facility]. It has not been cleared or [...] complexity clinical laboratory testing. 01/07/2025 10:18 AM [facility] Pathologist Signature Reviewed by: Tessie Peralta MD 01/07/2025 10:18 AM [facility] MRD Indicated Test Not Indicated 06/ 10:18 AM EDT [facility] Bone Marrow Specimen from bone marrow obtained by aspiration / Unknown Non-blood Collection / Unknown 01/06/2025 9:48 AM EDT 01/06/2025 11:20 AM EDT Virgen Vargas MD LAB FLOW CYTOMETRY ORDERABLES Final Result [facility] [address] [place] [address] * Bone marrow exam (01/06/2025 9:48 AM EDT) Case Report Bone Marrow Case: [id number] Authorizing Provider: Virgen Vargas MD Collected: 01/06/2025 0948 Ordering Location: [facility] Hematology/BMT and Received: 01/06/2025 1108 Cellular Therapy Program Pathologist: Tessie Peralta MD Specimens: A) - Bone Marrow Aspirate, left B) - Bone Marrow Biopsy, left C) - Peripheral Blood for Bone Marrow 6:13 PM EDT [facility] Final Diagnosis BONE MARROW, LEFT POSTERIOR ILIAC CREST, (PERIPHERAL SMEAR, ASPIRATE SMEARS, AND CORE BIOPSY): - MILDLY HYPOCELLULAR BONE MARROW WITH ERYTHROID HYPERPLASIA, MARKEDLY REDUCED GRANULOPOIESIS, PERSISTENT DYSPOIESIS AND 10% BLASTS, SEE COMMENT. 6:13 PM EDT [facility] at 1813 EDT Comment The marrow cellularity is composed of erythroid cells with markedly reduced granulopoiesis and decreased megakaryocytes. Persistent trilineage dyspoiesis is noted. The blast percentages are higher by flow cytometry analysis as the majority of marrow cellularity consists of erythroid precursors that are removed by flow cytometry. 6:13 PM EDT [facility] Clinical Information AML 12/22 6:13 PM EDT [facility] CBC and Differential PERIPHERAL [...] circulating blasts are identified. 6:13 PM EDT [facility] Bone Marrow Differential BONE MARROW DIFFERENTIAL: 400 cells Normal Patient Neutrophils 15-50 0 Metamyelocytes 4-19 1 Myelocytes 1-18 2 Promyelocytes 1-8 1 Blasts 0-2 10 Monocytes 0-5 0 Erythroid 16-38 73 Lymphocytes 3-24 4 Eosinophils 0-6 1 Basophils 0-2 0 Plasma cells 0-4 8 Other 6:13 PM EDT [facility] Bone Marrow Aspirate and Biopsy Core biopsy [...] at the [facility], [address] [place] [address]. All tests reported here, except those addressing [...] on decalcified specimens. 5 6:13 PM EDT [facility] Flow Cytometry Interpretation APPROXIMATELY 16% MYELOID BLASTS; EXPRESSING CD34, CD117, CD13, CD33, HLA-DR, PARTIAL CD7, PARTIAL CD123, VARIABLE CD38, AND MODERATE CD45, SEE COMMENT, BONE MARROW ASPIRATE ([id number]) 5 6:13 PM EDT [facility] Gross Description B. LEFT A single specimen is received in formalin labeled bone marrow biopsy left posterior iliac crest and consists of 2 piece(s) of tissue measuring 0.8/0.2 cm in length 0.2 cm in diameter. The specimen is submitted in to Histology for decalcification and routine processing. Cold Time: <1m 5 6:13 PM EDT [facility] Note: A resident was involved in the service. I attest I examined the relevant preparations for the specimens and confirmed the diagnosis or interpretation. 5 6:13 PM EDT [facility] Bone Marrow Peripheral blood [...] MD LAB PATHOLOGY ORDERABLES Terri lara Result [facility] [address] [place] [address] * (ABNORMAL) Comprehensive metabolic panel (01/06/2025 8:49 AM EDT) Glucose, Plasma 100(H) 74 - 99 mg/dL 01/06/2025 9:34 AM EDT [facility] BUN, Plasma 8 8 - 23 mg/dL 01/06/2025 9:34 AM EDT [facility] Creatinine, Plasma 0.76 0.70 - 1.20 mg/dL 01/06/2025 9:34 AM EDT [facility] BUN/Creatinine Ratio 11 01/06/2025 9:34 AM EDT [facility] Sodium, Plasma 138 136 - 145 mmol/L 01/06/2025 9:34 AM EDT [facility] Potassium, Plasma 4.3 3.6 - 4.9 mmol/L 01/06/2025 9:34 AM EDT [facility] Chloride, Plasma 109(H) 97 - 107 mmol/L 01/06/2025 9:34 AM EDT [facility] CO2, Plasma 21(L) 22 - 29 mmol/L 01/06/2025 9:34 AM EDT [facility] Anion Gap 8 6 - 16 mmol/L 01/06/2025 9:34 AM EDT [facility] Total Calcium, Plasma 8.8(L) 8.9 - 10.2 mg/dL 01/06/2025 9:34 AM EDT [facility] Total Protein 6.6 6.3 - 7.9 g/dL 01/06/2025 9:34 AM EDT [facility] Albumin, Plasma 3.9 3.5 - 5.2 g/dL 01/06/2025 9:34 AM EDT [facility] AST, Plasma 25 10 - 50 U/L 01/06/2025 9:34 AM EDT [facility] ALT, Plasma 28 10 - 50 U/L 01/06/2025 9:34 AM EDT [facility] Alkaline Phosphatase, Plasma 83 40 - 115 U/L 01/06/2025 9:34 AM EDT [facility] Total Bilirubin, Plasma 0.5 0.2 - 1.1 mg/dL 01/06/2025 9:34 AM EDT [facility] eGFRcr 97.3 mL/min/1.7 3m*2 01/06/2025 9:34 AM EDT [facility] Comment:Reported eGFRcr in m L/min/1.73m2 is based the CKD-EPI 2020 equation that does not use a race coefficient. Blood Venous blood specimen / Unknown Venipuncture / Unknown 01/06/2025 8:49 AM EDT 01/06/2025 9:01 AM EDT us Christina Ramos MD LAB BLOOD ORDERABLES Final Resul t [facility] [address] [place] [address] * (ABNORMAL) CBC and differential (01/06/2025 8:49 AM EDT) WBC Count 0.59(LL) 3.70 - 10.30 10*3/uL LAB HEMATOLOGY METHOD 01/06/2025 11:36 AM EDT [facility] RBC Count 2.95(L) 4.60 - 6.10 10*6/uL LAB HEMATOLOGY METHOD 01/06/2025 11:36 AM EDT [facility] HGB 8.8(L) 13.7 - 17.5 g/dL LAB HEMATOLOGY METHOD 01/06/2025 11:36 AM EDT [facility] HCT 25.3(L) 40.0 - 51.0 % LAB HEMATOLOGY METHOD 01/06/2025 11:36 AM EDT [facility] Platelet Count 75(L) 155 - 369 10*3/uL LAB HEMATOLOGY METHOD 01/06/2025 11:36 AM EDT [facility] MCV 86 79 - 98 fL LAB HEMATOLOGY METHOD 01/06/2025 11:36 AM EDT [facility] MCH 29.8 26.0 - 32.0 pg LAB HEMATOLOGY METHOD 01/06/2025 11:36 AM EDT [facility] MCHC 34.8 30.7 - 35.5 g/dL LAB HEMATOLOGY METHOD 01/06/2025 11:36 AM EDT [facility] RDW 14.6(H) 11.5 - 14.5 % LAB HEMATOLOGY METHOD 01/06/2025 11:36 AM EDT [facility] MPV 10.7 8.8 - 12.5 fL LAB HEMATOLOGY METHOD 01/06/2025 11:36 AM EDT [facility] nRBC 3.4(H) <=0.0 per 100 WBCs LAB HEMATOLOGY METHOD 01/06/2025 11:36 AM EDT [facility] Differential Type Automated LAB HEMATOLOGY METHOD 01/06/2025 11:36 AM EDT [facility] Neutrophils % 5 % LAB HEMATOLOGY METHOD 01/06/2025 11:36 AM EDT [facility] Lymphocytes % 88 % LAB HEMATOLOGY METHOD 01/06/2025 11:36 AM EDT [facility] Monocytes % 7 % LAB HEMATOLOGY METHOD 01/06/2025 11:36 AM EDT [facility] Eosinophils % 0 % LAB HEMATOLOGY METHOD 01/06/2025 11:36 AM EDT [facility] Basophils % 0 % LAB HEMATOLOGY METHOD 01/06/2025 11:36 AM EDT [facility] Immature Granulocytes % 0 % LAB HEMATOLOGY METHOD 01/06/2025 11:36 AM EDT [facility] Neutrophils Absolute 0.03(LL) 1.60 - 6.10 10*3/uL LAB HEMATOLOGY METHOD 01/06/2025 11:36 AM EDT [facility] Lymphocytes Absolute 0.52(L) 1.20 - 3.90 10*3/uL LAB HEMATOLOGY METHOD 01/06/2025 11:36 AM EDT [facility] Monocytes Absolute 0.04(L) 0.30 - 0.90 10*3/uL LAB HEMATOLOGY METHOD 01/06/2025 11:36 AM EDT [facility] Eosinophils Absolute 0.00 0.00 - 0.50 10*3/uL LAB HEMATOLOGY METHOD 01/06/2025 11:36 AM EDT [facility] Basophils Absolute 0.00 0.00 - 0.10 10*3/uL LAB HEMATOLOGY METHOD 01/06/2025 11:36 AM EDT [facility] Immature Granulocytes Absolute 0.00 0.00 - 0.06 10*3/uL LAB HEMATOLOGY METHOD 01/06/2025 11:36 AM EDT [facility] Blood Venous blood specimen / Unknown Venipuncture / Unknown 01/06/2025 8:49 AM EDT 01/06/2025 9:01 AM EDT Narrative [facility] - 01/06/2025 11:36 AM EDT Therapeutic decision making should be based on absolute values, rather than percentages. us Christina Ramos MD LAB BLOOD ORDERABLES Final Resul t [facility] [address] [place] [address] documented in this encounter Visit Diagnoses Diagnosis [...] documented as of this encounter Care Teams Private Chef Relationship Specialty Start Date End Date Zhao Harris MD [facility] [address] [place] [address] PCP - General 12/03/20 documented as of this encounter
--- OUTSIDE RECORDS SUMMARY | 2025-01-13 09:30 | XMS_ITS | Encounter Summary ---
Author Organization [facility] Address [address] [place] [address] Care Team Providers Care Tanning Drum Operator Name Role Phone Zhao Harris MD Primary Care Provider [phone] Reason for Visit * Reason Comments Nurse Visit Labs Encounter Details Date Type Department Care Team ([facility] Contact Info) Description 01/13/2025 9:30 AM EDT Clinical Support P[facility] CC Hematology/BMT and Cellular Therapy Program [address] [place] [address] [place] [address] Social History Tobacco Use Types Packs/Day Years Used Date Smoking Tobacco: Every Day Cigarettes 1.5 15 Started: 1994 Passive Smoke Exposure: Current Smokeless Tobacco: Never Alcohol Use Standard Drinks/Week Comments Not Currently 6 (1 standard drink = 0.6 oz pur e alcohol) PHQ-2 Answer Date Recorded Patient Health Questionnaire-2 Score 1 01/13/2025 PHQ-9 Answer Date Recorded Patient Health Questionnaire-9 [...] drink first t manav in the morning (EYE-PLANER SETTER) to steady your nerves or to [...] Interventional Radiology [address] [place] [address] 02/10/2025 8:30 AM EDT Clinical Support [facility] Hematology/BMT and Cellular Therapy Program [address] [address] 02/10/2025 9:00 AM EDT Office Visit PAV Hematology/BMT and Cellular Therapy Program [address] [address] Elaina Boss, PA 800 [facility] [address] [place] [address] 02/10/2025 10:30 AM EDT Appointment [facility] 1 744 [place] [address] 02/11/2025 2:00 PM EDT Appointment [facility] 1 744 [place] [address] 02/12/2025 2:00 PM EDT Appointment [facility] 1 7[address] [place] [address] 02/13/2025 2:00 PM EDT Appointment [facility] 1 7[address] [place] [address] 02/14/2025 2:00 PM EDT Appointment [facility] 1 7[address] [place] [address] 03/10/2025 8:30 AM EDT Clinical Support [facility] CC Hematology/BMT and Cellular Therapy Program [address] [place] [address] 03/10/2025 9:00 AM EDT Office Visit [facility] CC Hematology/BMT and Cellular Therapy Program [address] [facility] [place] [place] [address] Isaura Wynn, TRAFFIC MONITOR SPECIALIST 800 [facility] 1st [place] [address] 03/10/2025 11:20 AM EDT Office Visit Pav CC Head, Neck & Respiratory [address] [facility], 2nd [place] [address] Elsa Razo, TRAFFIC MONITOR SPECIALIST 800 [place] [address] documented as of this encounter Visit Diagnoses Not on filedocumented in this encounter Additional Health Concerns Assessment Noted Time PHQ-9 Depression Total Score: 0 09/11/19 9:15 AM EST A fall risk assessment has been complete d for the patient 01/13/2025 12:05 PM EDT A Body Mass Index follow-up plan has been documented for the patient 12/16/2024 12:23 PM EDT documented as of this encounter Care Teams Tanning Drum Operator Relationship Specialty Start Date End Date Zhao Harris MD [address] [place] [phone] PCP - General 12/03/20 documented as of this encounter
--- OUTSIDE RECORDS SUMMARY | 2025-01-13 10:00 | XMS_ITS | Encounter Summary ---
Author Organization [facility] Address [address] [place] [address] Care Team Providers Care Oiler And Greaser Name Role Phone Zhao Harris MD Primary Care Provider [phone] Reason for Referral * Imaging (Routine) - Pending Review Specialty Diagnoses / Procedures Referred By Justice t Referred To Contact Radiology Diagnoses Myelodysplasia (myelodysplastic syndrome) (CMS/HCC) Procedures CT Guided Asp and Biopsy Bone Marrow Consult to Interventional Radiology Virgen Vargas MD 800 [facility] [address] [address] Phone: tel: fax: Referral ID Status Reason Start Date Expiration Date V isits Requested Visits Authorized [id number] Pending Review 01/15/2025 07/17/2026 1 1 * Genetic Testing (Routine) - Pending Review Specialty Diagnoses / Procedures Referred By Justice mcgee Referred To Contact Lab Diagnoses Myelodysplasia (myelodysplastic syndrome) (CMS/HCC) Procedures Cytogenetics Testing, Oncology Virgen Vargas MD [address] [address] Phone: tel: fax: Referral ID Status Reason Start Date Expiration Date V isits Requested Visits Authorized [id number] Pending Review 01/13/2025 07/15/2026 1 1 * Genetic Testing (Routine) - Authorized Specialty Diagnoses / Procedures Referred By Justice mcgee Referred To Contact Lab Diagnoses Myelodysplasia (myelodysplastic syndrome) (CMS/HCC) Procedures Leukemia/Lymphoma - Immunophenotyping by Flow Cytometry Virgen Vargas MD [address] [address] Phone: tel: fax: Referral ID Status Reason Start Date Expiration Date V isits Requested Visits Authorized [id number] Authorized 01/13/2025 07/15/2026 1 1 * Genetic Testing (Routine) - Authorized Specialty Diagnoses / Procedures Referred By Justice mcgee Referred To Contact Lab Diagnoses Myelodysplasia (myelodysplastic syndrome) (CMS/HCC) Procedures Bone marrow exam Virgen Vargas MD [address] [address] Phone: tel: fax: Referral ID Status Reason Start Date Expiration Date V isits Requested Visits Authorized [id number] Authorized 01/13/2025 07/15/2026 1 1 Reason for Visit * Reason Comments Follow-up Encounter Details Date Type Department Care Team (Latest Contact Info) Description 01/13/2025 10:00 AM EDT Office Visit [facility] Hematology/BMT and Cellular Therapy Program [address] [place] [address] Isaura Wynn, ESTRELLA [address] [address] Myelodysplasia (myelodysplastic syndrome) (CMS/HCC) (Primary [...] drink first t manav in the morning (EYE-VITAMIN MANAGER) to steady your nerves or to [...] Not at all 01/13/2025 10:14 AM EDT [place], Cecelia W Feeling down, depressed, or hopeless Several days 01/13/2025 10:14 AM EDT [place], Cecelia W Patient Health Questionnaire -2 Score 1 01/13/2025 10:14 AM EDT [place], Cecelia W * Calculated C-SSRS Risk Score (Lifetime/Recent) Answer Date of Assessment Author No Risk Indicated 01/13/2025 10:14 AM EDT Chikarthik n Cecelia W * Question Answer Date of Assessment Author 1. Wish to be (Past 1 Month) No 025 10:14 AM EDT Emily Cecelia W 2. Non-Specific Active Suici ebrry Thoughts (Past 1 Month) No 01/13/2025 10:14 [...] 3: 12/16/24 Plan: Venetoclax rx sent to [facility]. Refills due monthly. Patient will return to clinic in 4 weeks. Will follow-up at that time. documented in this encounter Plan of Treatment Upcoming Encounters Date Type Department Care Team ([facility] st Contact Info) Description 02/02/2025 11:00 AM EDT Appointment [facility] Interventional Radiology [address] [place] [address] 02/10/2025 8:30 AM EDT Clinical Support [facility] Hematology/BMT and Cellular Therapy Program [address] [address] 02/10/2025 9:00 AM EDT Office Visit [facility] Hematology/BMT and Cellular Therapy Program [address] [phone] Elaina Boss, PA 800 [facility] [address] [place] [phone] 02/10/2025 10:30 AM EDT Appointment [facility] [address] [place] [address] 02/11/2025 2:00 PM EDT Appointment [facility] [address] [place] [address] 02/12/2025 2:00 PM EDT Appointment [facility] [address] [place] [address] 02/13/2025 2:00 PM EDT Appointment [facility] 1 [address] [place] [address] 02/14/2025 2:00 PM EDT Appointment [facility] [address] [place] [address] 03/10/2025 8:30 AM EDT Clinical Support [facility] Hematology/BMT and Cellular Therapy Program [address] [address] 03/10/2025 9:00 AM EDT Office Visit [facility] Hematology/BMT and Cellular Therapy Program [address] [place] [phone] Isaura Wynn, SEARCH ENGINE OPTIMIZATION ANALYST 800 [facility] [address] [place] [address] 03/10/2025 11:20 AM EDT Office Visit [facility] CC Head, Neck & Respiratory 800 [facility], [address] [place] [address] Elsa Razo, SEARCH ENGINE OPTIMIZATION ANALYST [address] [place] [address] Scheduled Orders Name Type Priority Associated Diagnoses Order Schedule CBC and differential Lab Routine Myelodysplasia (myelodysplastic syndrome) ([facility]/HCC) Expected: 01/20/2025, Expires: 01/20/2026 Comprehensive metabolic panel Lab Routine Myelodysplasia (myelodysplastic syndrome) ([facility]/HCC) Expected: 01/20/2025, Expires: 01/20/2026 CBC and differential Lab Routine Myelodysplasia (myelodysplastic syndrome) ([facility]/HCC) Expected: 01/22/2025, Expires: 01/22/2026 CBC and differential Lab Routine Myelodysplasia (myelodysplastic syndrome) ([facility]/HCC) Expected: 01/24/2025, Expires: 01/24/2026 CBC and differential Lab Routine Myelodysplasia (myelodysplastic syndrome) ([facility]/HCC) Expected: 01/27/2025, Expires: 01/27/2026 Comprehensive metabolic panel Lab Routine Myelodysplasia (myelodysplastic syndrome) ([facility]/HCC) Expected: 01/27/2025, Expires: 01/27/2026 CBC and differential Lab Routine Myelodysplasia (myelodysplastic syndrome) (CMS/HCC) Expected: 01/29/2025, Expires: 01/29/2026 CBC and differential Lab Routine Myelodysplasia (myelodysplastic syndrome) ([facility]/HCC) Expected: 01/31/2025, Expires: 01/31/2026 CBC and differential Lab Routine Myelodysplasia (myelodysplastic syndrome) ([facility]/HCC) Expected: 02/03/2025, Expires: 02/03/2026 Comprehensive metabolic panel Lab Routine Myelodysplasia (myelodysplastic syndrome) (CMS/HCC) Expected: 02/03/2025, Expires: 02/03/2026 CBC and differential Lab Routine Myelodysplasia (myelodysplastic syndrome) (CMS/HCC) Expected: 02/05/2025, Expires: 02/05/2026 CBC and differential Lab Routine Myelodysplasia (myelodysplastic syndrome) (CMS/HCC) Expected: 02/07/2025, Expires: 02/07/2026 Bone marrow exam Pathology and Cytology Routine Myelodysplasia (myelodysplastic syndrome) (CMS/HCC) Expected: 01/13/2025 (Approximate), Expires: 07/17/2026 Leukemia/Lymphoma - Immunophenotyping by Flow Cytometry Lab Routine Myelodysplasia (myelodysplastic syndrome) (CMS/HCC) Expected: 01/13/2025 (Approximate), Expires: 07/17/2026 Cytogenetics Testing, [...] [facility] Lymphocytes Absolute 0.49(L) 1.20 - 3.90 10*3/uL LAB HEMATOLOGY METHOD 01/17/2025 9:[address] [facility] Monocytes Absolute 0.01(L) 0.30 [...] ORDERABLES Final Re sult Performing Organization Address [facility]/ZIP Co de Phone Number [facility] [address] [place] [address] * LACTATE DEHYDROGENASE (01/15/2025 8:17 AM EDT) LDH, Plasma 192 116 - 250 U/L 01/15/2025 9:[address] [facility] Blood Blood sample taken from central line / Unknown (Port) Long-term Catheter / Unknown 01/15/2025 8:17 AM EDT 01/15/2025 8:47 AM EDT Virgen Vargas MD LAB BLOOD ORDERABLES Final Re sult Performing Organization Address City/[facility]/ZIP Co de Phone Number [facility] [address] [place] [address] * Magnesium (01/15/2025 8:17 AM EDT) Magnesium, Plasma 2.2 1.9 - 2.4 mg/dL 01/15/2025 9:[address] [facility] Blood Blood sample taken from central line / Unknown (Port) Long-term Catheter / Unknown 01/15/2025 8:17 AM EDT 01/15/2025 8:47 AM EDT Virgen Vargas MD LAB BLOOD ORDERABLES Final Re sult [facility] [address] [place] [address] * Phosphorus (01/15/2025 8:17 AM EDT) Phosphorus, Plasma 3.1 2.5 - 4.5 mg/dL 01/15/2025 9:[address] [facility] Blood Blood sample taken from central line / Unknown (Port) Long-term Catheter / Unknown 01/15/2025 8:17 AM EDT 01/15/2025 8:47 AM EDT Virgen Vargas MD LAB BLOOD ORDERABLES Final Re sult [facility] [address] [place] [address] * (ABNORMAL) Uric acid (01/15/2025 8:17 AM EDT) Uric Acid, Plasma 3.0(L) 3.7 - 8.0 mg/dL 01/15/2025 9:[address] [facility] Blood Blood sample taken from central line / Unknown (Port) Long-term Catheter / Unknown 01/15/2025 8:17 AM EDT 01/15/2025 8:47 AM EDT Virgen Vargas MD LAB BLOOD ORDERABLES Final Re sult [facility] [address] [place] [address] * (ABNORMAL) BASIC METABOLIC PANEL (01/15/2025 8:17 [...] sult [facility] [address] [place] [address] * (ABNORMAL) CBC and differential (01/15/2025 8:17 [...] 8:17 AM EDT 01/15/2025 8:59 AM EDT [facility] - 01/15/2025 11:53 AM EDT Therapeutic decision making should be based on absolute values, rather than percentages. us Virgen Vargas MD LAB BLOOD ORDERABLES Final Re sult [facility] [address] [place] [address] * LACTATE DEHYDROGENASE (01/14/2025 9:06 AM EDT) LDH, Plasma 195 116 - 250 U/L 01/14/2025 9:[address] [facility] Blood Blood sample taken from central line / Unknown (Port) Long-term Catheter / Unknown 01/14/2025 9:06 AM EDT 01/14/2025 9:25 AM EDT Virgen Vargas MD LAB BLOOD ORDERAB[place] [address] * Magnesium (01/14/2025 9:06 AM EDT) Magnesium, Plasma 2.2 1.9 - 2.4 mg/dL 01/14/2025 9:[address] [facility] Blood Blood sample taken from central line / Unknown (Port) Long-term Catheter / Unknown 01/14/2025 9:06 AM EDT 01/14/2025 9:25 AM EDT Virgen Vargas MD LAB BLOOD ORDERABLES Final Re sult Performing Organization Address [facility]/[place] [address] * Phosphorus (01/14/2025 9:06 AM EDT) Phosphorus, Plasma 3.6 2.5 - 4.5 mg/dL 01/14/2025 9:[address] [facility] Blood Blood sample taken from central line / Unknown (Port) Long-term Catheter / Unknown 01/14/2025 9:06 AM EDT 01/14/2025 9:25 AM EDT Virgen Vargas MD LAB BLOOD ORDERABLES [place] [address] * (ABNORMAL) Uric acid (01/14/2025 9:06 AM EDT) Uric Acid, Plasma 3.0(L) 3.7 - 8.0 mg/dL 01/14/2025 9:[address] [facility] Blood Blood sample taken from central line / Unknown (Port) Long-term Catheter / Unknown 01/14/2025 9:06 AM EDT 01/14/2025 9:25 AM EDT us Virgen Vargas MD LAB BLOOD ORDERABLES Final Re sult [facility] [address] [place] [address] * (ABNORMAL) BASIC METABOLIC PANEL (01/14/2025 9:06 [...] sult [facility] [address] [place] [address] * (ABNORMAL) Comprehensive Metabolic Panel, Plasma (01/13/2025 [...] ult [facility] [address] [place] [address] * (ABNORMAL) CBC and Differential (01/13/2025 10:02 AM EDT) WBC Count 0.63(LL) 3.70 - 10.30 10*3/uL LAB HEMATOLOGY METHOD 01/13/2025 10:50 AM EDT [facility] RBC Count 2.94(L) 4.60 - 6.10 10*6/uL LAB HEMATOLOGY METHOD 01/13/2025 10:50 AM EDT [facility] HGB 8.9(L) 13.7 - 17.5 g/dL LAB HEMATOLOGY METHOD 01/13/2025 10:50 AM EDT [facility] HCT 24.7(L) 40.0 - 51.0 % LAB HEMATOLOGY METHOD 01/13/2025 10:[facility] Platelet Count 5(LL) 155 - 369 10*3/uL LAB HEMATOLOGY METHOD 01/13/2025 10:50 AM EDT [facility] MCV 84 79 - 98 fL LAB HEMATOLOGY METHOD 01/13/2025 10:50 AM EDT [facility] MCH 30.3 26.0 - 32.0 pg LAB HEMATOLOGY METHOD 01/13/2025 10:50 AM EDT [facility] MCHC 36.0(H) 30.7 - 35.5 g/dL LAB HEMATOLOGY METHOD 01/13/2025 10:50 AM EDT [facility] RDW 14.4 11.5 - 14.5 % LAB HEMATOLOGY METHOD 01/13/2025 10:50 AM EDT [facility] MPV LAB HEMATOLOGY METHOD 01/13/2025 10:50 AM EDT [facility] Comment:Not Measured nRBC 0.0 <=0.0 per 100 WBCs LAB HEMATOLOGY METHOD 01/13/2025 10:50 AM EDT [facility] Differential Type Automated LAB HEMATOLOGY METHOD 01/13/2025 10:50 AM EDT [facility] Neutrophils % 3 % LAB HEMATOLOGY METHOD 01/13/2025 10:50 AM EDT [facility] Lymphocytes % 94 % LAB HEMATOLOGY METHOD 01/13/2025 10:50 AM EDT [facility] Monocytes % 3 % LAB HEMATOLOGY METHOD 01/13/2025 10:50 AM EDT [facility] Eosinophils % 0 % LAB HEMATOLOGY METHOD 01/13/2025 10:50 AM EDT [facility] Basophils % 0 % LAB HEMATOLOGY METHOD 01/13/2025 10:50 AM EDT [facility] Immature Granulocytes % 0 % LAB HEMATOLOGY METHOD 01/13/2025 10:50 AM EDT [facility] Neutrophils Absolute 0.02(LL) 1.60 - 6.10 10*3/uL LAB HEMATOLOGY METHOD 01/13/2025 10:50 AM EDT [facility] Lymphocytes Absolute 0.59(L) 1.20 - 3.90 10*3/uL LAB HEMATOLOGY METHOD 01/13/2025 10:50 AM EDT [facility] Monocytes Absolute 0.02(L) 0.30 - 0.90 10*3/uL LAB HEMATOLOGY METHOD 01/13/2025 10:50 AM EDT [facility] Eosinophils Absolute 0.00 0.00 - 0.50 10*3/uL LAB HEMATOLOGY METHOD 01/13/2025 10:50 AM EDT [facility] Basophils Absolute 0.00 0.00 - 0.10 10*3/uL LAB HEMATOLOGY METHOD 01/13/2025 10:50 AM EDT [facility] Immature Granulocytes Absolute 0.00 0.00 - 0.06 10*3/uL LAB HEMATOLOGY METHOD 01/13/2025 10:50 AM EDT [facility] Blood Blood sample taken from central line / Unknown (Port) Long-term Catheter / Unknown 01/13/2025 10:02 AM EDT 01/13/2025 10:15 AM EDT Narrative [facility] - 01/13/2025 10:50 AM EDT Therapeutic decision making should be based on absolute values, rather than percentages. Isaura Wynn SEARCH ENGINE OPTIMIZATION ANALYST LAB BLOOD ORDERABLES Final Res ult Performing Organization Address City/State/[facility] Co de Phone Number HEALTHCARE LAB [address] [place] [address] documented in this encounter Visit Diagnoses Diagnosis [...] documented as of this encounter Care Teams Oiler And Greaser Relationship Specialty Start Date End Date Zhao Harris MD [address] [place] [address] PCP - General 12/03/20 documented as of this encounter
--- OUTSIDE RECORDS SUMMARY | 2025-01-13 11:30 | XMS_ITS | Encounter Summary ---
Author Organization [facility] Address [address] [facility] [place] [address] Care Team Providers Care Concrete Float Maker Name Role Phone Zhao Harris MD Primary Care Provider + [phone] Reason for Visit * Episode Based Medications (Routine) - Authorized Specialty Diagnoses / Procedures Referred By Justice mcgee Referred To Contact Diagnoses Myelodysplasia (myelodysplastic syndrome) (CMS/HCC) Procedures Decitabine Daily x 5 / Venetoclax Every 28 Days Virgen Vargas MD 800 [facility] [address] [address] Phone: tel: fax: Virgen Vargas MD 800 [facility] [address] [address] Phone: tel: fax: Referral ID Status Reason Start Date Expiration Date V isits Requested Visits Authorized [id number] Authorized 01/13/2025 07/15/2026 1 30 Encounter Details Date Type Department Care Team (Latest Contact Info) Description 01/13/2025 11:30 AM EDT - 01/13/2025 11:59 PM EDT Hospital Encounter PAV H Infusion 800 [place] [id number] Myelodysplasia (myelodysplastic syndrome) (CMS/HCC) (Primary Dx); Thrombocytopenia [...] drink first t manav in the morning (EYE-MASTER OF CEREMONIES) to steady your nerves or to get [...] daily. 90 tablet 3 09/11/2024 HYDROcodone-aceta minophen ([place]) 5-325 MG tablet Take 1 tablet by [...] Appointment PAV A Interventional Radiology [address] [place] [address] 02/10/2025 8:30 AM EDT Clinical Support PAV Hematology/BMT and Cellular Therapy Program [address] [address] 02/10/2025 9:00 AM EDT Office Visit PAV Hematology/BMT and Cellular Therapy Program [address] [address] Elaina Boss PA 800 [facility] [address] [place] [address] 02/10/2025 10:30 AM EDT Appointment [facility] Infusion [facility] 1 744 [place] [address] 02/11/2025 2:00 PM EDT Appointment [facility] 1 744 [place] [address] 02/12/2025 2:00 PM EDT Appointment [facility] 1 744 [place] [address] 02/13/2025 2:00 PM EDT Appointment [facility] 1 744 [place] [address] 02/14/2025 2:00 PM EDT Appointment [facility] 1 744 [place] [address] 03/10/2025 8:30 AM EDT Clinical Support PAV CC Hematology/BMT and Cellular Therapy Program [address] [address] 03/10/2025 9:00 AM EDT Office Visit PAV Hematology/BMT and Cellular Therapy Program [address] [address] Isaura Wynn, RESTAURANT ASSISTANT 800 [facility] [address] [place] [address] 03/10/2025 11:20 AM EDT Office Visit Pav CC Head, Neck & Respiratory 800 [facility], 2nd [place] [address] Elsa Razo, RESTAURANT ASSISTANT 800 [place] [address] documented as of this encounter Procedures Procedure [...] Transfuse platelets (01/13/2025 2:36 PM EDT) Result [facility] Kayli Daly Janetallegraaxel CHIU BLOOD TRANSFUSION ORDERA BLES Final Result * Transfuse platelets: 1 Units (01/13/2025 2:36 PM EDT) Kayli Daly Janetallegraaxel CHIU BLOOD TRANSFUSION ORDERA BLES Final Result * (ABNORMAL) Platelet count (01/13/2025 2:07 PM EDT) Platelet Count 39(L) 155 - 369 10*3/uL LAB HEMATOLOGY METHOD 01/13/2025 2:37 PM EDT [facility] Blood Venous blood specimen / Unknown Venipuncture / Unknown 01/13/2025 2:07 PM EDT 01/13/2025 2:30 PM EDT Result [facility] Virgen Vargas MD LAB BLOOD ORDERABLES Final Re sult [facility] [address] [place] [address] * Exception to Standard Practice, Pathologist Interpretation [...] ORDERAB LES Final Result Performing Organization Address [facility] de Phone Number BLOOD BANK [address] * Prepare Leukocyte Reduced Platelets: 1 Units (01/13/2025 12:07 PM EDT) Product Code [id number] CH BLOO D BANK Dispense Status Transfused BLOOD BANK Blood Expiration Date [id number] BLOOD BANK Unit Number [id number] CH B LOOD BANK Product Blood Type 6200 BLOOD BANK Blood Type A+ BLOOD BANK Blood Venous blood specimen / Unknown Kayli CHIU BLOOD BANK PRODUCT ORDER VIKAS Final Result Performing Organization Address [facility] de Phone Number BLOOD BANK [address] documented in this encounter Visit Diagnoses [...] documented as of this encounter Care Teams Concrete Float Maker Relationship Specialty Start Date End Date Zhao Harris MD [address] [place] [address] PCP - General 12/03/20 documented as of this encounter
--- OUTSIDE RECORDS SUMMARY | 2025-01-14 08:07 | XMS_ITS | Encounter Summary ---
Author Organization [facility] Address [address] [facility] [place] [address] Care Team Providers Care Geospatial Analyst Name Role Phone Zhao Harris MD Primary Care Provider + [phone] Reason for Visit * Episode Based Medications (Routine) - Authorized Specialty Diagnoses / Procedures Referred By Justice mcgee Referred To Contact Diagnoses Myelodysplasia (myelodysplastic syndrome) (CMS/HCC) Procedures Decitabine Daily x 5 / Venetoclax Every 28 Days Virgen Vargas MD [address] [address] Phone: tel: fax: Virgen Vargas MD [address] [address] Phone: tel: fax: Referral ID Status Reason Start Date Expiration Date V isits Requested Visits Authorized [id number] Authorized 01/13/2025 07/15/2026 1 30 Encounter Details Date Type Department Care Team (Latest Contact Info) Description 01/14/2025 8:07 AM EDT - 01/14/2025 11:59 PM EDT Hospital Encounter [facility] Infusion Clinic 1 [address] [place] [phone] Myelodysplasia (myelodysplastic syndrome) (CMS/HCC) (Primary Dx) Discharge [...] drink first t manav in the morning (EYE-PLUGGING MACHINE OPERATOR) to steady your nerves or [...] 5 MG tabletIndications :Coronary artery disease involving [place]ocha dehe heart with angina pectoris, unspecified vessel or lesion type (CMS/HCC),Hyperte nsion, unspecified type Take 1 tablet (5 mg) by mouth daily. 90 tablet 3 09/11/2024 HYDROcodone-aceta minophen ([place]) 5-325 MG tablet Take 1 tablet by [...] MG SL tabletIndications :Coronary artery disease involving yocha dehe heart with angina pectoris, unspecified vessel [...] ([facility] st Contact Info) Description 02/02/2025 11:00 AM EDT Appointment [facility] A Interventional Radiology [address] [place] [address] 02/10/2025 8:30 AM EDT Clinical Support [facility] Hematology/BMT and Cellular Therapy Program [address] [place] [address] 02/10/2025 9:00 AM EDT Office Visit [facility] Hematology/BMT and Cellular Therapy Program [address] [phone] Elaina Boss, ARAM 800 [facility] [address] [place] [phone] 02/10/2025 10:30 AM EDT Appointment [facility] Infusion Clinic 1 [address] [place] [phone] 02/11/2025 2:00 PM EDT Appointment [facility] Infusion Clinic 1 [address] [place] [address] 02/12/2025 2:00 PM EDT Appointment [facility] Infusion Clinic 1 [address] [place] [address] 02/13/2025 2:00 PM EDT Appointment [facility] Infusion Clinic 1 [address] [place] [address] 02/14/2025 2:00 PM EDT Appointment [facility] Infusion Clinic 1 [address] [place] [address] 03/10/2025 8:30 AM EDT Clinical Support [facility] Hematology/BMT and Cellular Therapy Program [address] [address] 03/10/2025 9:00 AM EDT Office Visit [facility] Hematology/BMT and Cellular Therapy Program [address] [phone] Isaura Wynn, COLD ROLLING SUPERVISOR 800 [facility] [address] [place] [phone] 03/10/2025 11:20 AM EDT Office Visit Pav [facility] Head, Neck & Respiratory 800 [facility], 2nd [place] [phone] Elsa Razo, COLD ROLLING SUPERVISOR [address] [place] [phone] documented as of this encounter Procedures Procedure [...] LAB HEMATOLOGY METHOD 01/14/2025 10:14 AM EDT [facility] RBC Count 2.75(L) 4.60 - 6.10 10*6/uL LAB HEMATOLOGY METHOD 01/14/2025 10:14 AM EDT [facility] HGB 8.2(L) 13.7 - 17.5 g/dL LAB HEMATOLOGY METHOD 01/14/2025 10:14 AM EDT [facility] HCT 23.2(L) 40.0 - 51.0 % LAB HEMATOLOGY METHOD 01/14/2025 10:14 AM EDT [facility] Platelet Count 21(L) 155 - 369 10*3/uL LAB HEMATOLOGY METHOD 01/14/2025 10:14 AM EDT [facility] MCV 84 79 - 98 fL LAB HEMATOLOGY METHOD 01/14/2025 10:14 AM EDT [facility] MCH 29.8 26.0 - 32.0 pg LAB HEMATOLOGY METHOD 01/14/2025 10:14 AM EDT [facility] MCHC 35.3 30.7 - 35.5 g/dL LAB HEMATOLOGY METHOD 01/14/2025 10:[facility] RDW 14.3 11.5 - 14.5 % LAB HEMATOLOGY METHOD 01/14/2025 10:14 AM EDT [facility] MPV 8.1(L) 8.8 - 12.5 fL LAB HEMATOLOGY METHOD 01/14/2025 10:14 AM EDT [facility] nRBC 0.0 <=0.0 per 100 WBCs LAB HEMATOLOGY METHOD 01/14/2025 10:14 AM EDT [facility] Differential Type Automated LAB HEMATOLOGY METHOD 01/14/2025 10:14 AM [facility] Neutrophils % 4 % LAB HEMATOLOGY METHOD 01/14/2025 10:14 AM EDT [facility] Lymphocytes % 92 % LAB HEMATOLOGY METHOD 01/14/2025 10:14 AM EDT [facility] Monocytes % 4 % LAB HEMATOLOGY METHOD 01/14/2025 10:14 AM [facility] Eosinophils % 0 % LAB HEMATOLOGY METHOD 01/14/2025 10:14 AM [facility] Basophils % 0 % LAB HEMATOLOGY METHOD 01/14/2025 10:14 AM [facility] Immature Granulocytes % 0 % LAB HEMATOLOGY METHOD 01/14/2025 10:14 AM [facility] Neutrophils Absolute 0.02(LL) 1.60 - 6.10 10*3/uL LAB HEMATOLOGY METHOD 01/14/2025 10:14 AM [facility] Lymphocytes Absolute 0.50(L) 1.20 - 3.90 10*3/uL LAB HEMATOLOGY METHOD 01/14/2025 10:14 AM [facility] Monocytes Absolute 0.02(L) 0.30 - 0.90 10*3/uL LAB HEMATOLOGY METHOD 01/14/2025 10:14 AM [facility] Eosinophils Absolute 0.00 0.00 - 0.50 10*3/uL LAB HEMATOLOGY METHOD 01/14/2025 10:14 AM EDT [facility] Basophils Absolute 0.00 0.00 - 0.10 10*3/uL LAB HEMATOLOGY METHOD 01/14/2025 10:14 AM [facility] Immature Granulocytes Absolute 0.00 0.00 - 0.06 10*3/uL LAB HEMATOLOGY METHOD 01/14/2025 10:14 AM [facility] Blood Blood sample taken from central line / Unknown (Port) Long-term Catheter / Unknown 01/14/2025 9:06 AM EDT 01/14/2025 9:14 AM EDT Narrative [facility] - 01/14/2025 10:14 AM EDT Therapeutic decision making should be based on absolute values, rather than percentages. us Virgen Vargas MD LAB BLOOD ORDERABLES Final Re sult [facility] [address] [place] [phone] * (ABNORMAL) BASIC METABOLIC PANEL (01/14/2025 9:06 AM EDT) Glucose, Plasma 101(H) 74 - 99 mg/dL 01/14/2025 9:58 AM EDT [facility] BUN, Plasma 9 8 - 23 mg/dL 01/14/2025 9:58 AM EDT [facility] Creatinine, Plasma 0.71 0.70 - 1.20 mg/dL 01/14/2025 9:58 AM EDT [facility] BUN/Creatinine Ratio 13 01/14/2025 9:58 AM EDT [facility] Sodium, Plasma 140 136 - 145 mmol/L 01/14/2025 9:58 AM EDT [facility] Potassium, Plasma 4.3 3.6 - 4.9 mmol/L 01/14/2025 9:58 AM EDT [facility] Chloride, Plasma 110(H) 97 - 107 mmol/L 01/14/2025 9:58 AM EDT [facility] CO2, Plasma 21(L) 22 - 29 mmol/L 01/14/2025 9:58 AM EDT [facility] Anion Gap 9 6 - 16 mmol/L 01/14/2025 9:58 AM EDT [facility] Total Calcium, Plasma 8.6(L) 8.9 - 10.2 mg/dL 01/14/2025 9:58 AM EDT [facility] eGFRcr 99.3 mL/min/1.7 3m*2 01/14/2025 9:58 AM EDT [facility] Comment:Reported eGFRcr in m L/min/1.73m2 is based the CKD-EPI 2020 equation that does not use a race coefficient. Blood Blood sample taken from central line / Unknown (Port) Long-term Catheter / Unknown 01/14/2025 9:06 AM EDT 01/14/2025 9:25 AM EDT Virgen Vargas MD LAB BLOOD ORDERABLES Final Re sult Performing Organization Address City/[facility]/ZIP Co de Phone Number [facility] [address] [place] [address] * (ABNORMAL) Uric acid (01/14/2025 9:06 AM EDT) Uric Acid, Plasma 3.0(L) 3.7 - 8.0 mg/dL 01/14/2025 9:58 AM EDT [facility] Blood Blood sample taken from central line / Unknown (Port) Long-term Catheter / Unknown 01/14/2025 9:06 AM EDT 01/14/2025 9:25 AM EDT Virgen Vargas MD LAB BLOOD ORDERABLES Final Re sult Performing Organization Address City/[facility]/[place] [address] * Phosphorus (01/14/2025 9:06 AM EDT) Phosphorus, Plasma 3.6 2.5 - 4.5 mg/dL 01/14/2025 9:58 AM EDT [facility] Blood Blood sample taken from central line / Unknown (Port) Long-term Catheter / Unknown 01/14/2025 9:06 AM EDT 01/14/2025 9:25 AM EDT Virgen Vargas MD LAB BLOOD ORDERABLES Final Re sult [facility] [address] [place] [address] * Magnesium (01/14/2025 9:06 AM EDT) Magnesium, Plasma 2.2 1.9 - 2.4 mg/dL 01/14/2025 9:58 AM EDT [facility] Blood Blood sample taken from central line / Unknown (Port) Long-term Catheter / Unknown 01/14/2025 9:06 AM EDT 01/14/2025 9:25 AM EDT Virgen Vargas MD LAB BLOOD ORDERABLES Final Re sult Performing Organization Address [facility]/ZIP Co de Phone Number [facility] [address] [place] [address] * LACTATE DEHYDROGENASE (01/14/2025 9:06 AM EDT) LDH, Plasma 195 116 - 250 U/L 01/14/2025 9:58 AM EDT [facility] Blood Blood sample taken from central line / Unknown (Port) Long-term Catheter / Unknown 01/14/2025 9:06 AM EDT 01/14/2025 9:25 AM EDT Virgen Vargas MD LAB BLOOD ORDERABLES Final Re sult Performing Organization Address [facility]/[place] [address] documented in this encounter Visit Diagnoses Diagnosis [...] documented as of this encounter Care Teams Geospatial Analyst Relationship Specialty Start Date End Date Zhao Harris MD [address] [place] [address] PCP - General 12/03/20 documented as of this encounter
--- OUTSIDE RECORDS SUMMARY | 2025-01-15 08:11 | XMS_ITS | Encounter Summary ---
Author Organization [facility] Address [address] [facility] [address] Care Team Providers Care Washer And Crusher Tender Name Role Phone Zhao Harris MD Primary Care Provider + [phone] Reason for Visit * Episode Based Medications (Routine) - Authorized Specialty Diagnoses / Procedures Referred By Justice mcgee Referred To Contact Diagnoses Myelodysplasia (myelodysplastic syndrome) (CMS/HCC) Procedures Decitabine Daily x 5 / Venetoclax Every 28 Days Virgen Vargas MD 800 [facility] [address] [address] Phone: tel: fax: Virgen Vargas MD [address] [address] Phone: tel: fax: Referral ID Status Reason Start Date Expiration Date V isits Requested Visits Authorized [id number] Authorized 01/13/2025 07/15/2026 1 30 Encounter Details Date Type Department Care Team (Latest Contact Info) Description 01/15/2025 8:11 AM EDT - 01/15/2025 9:57 AM EDT Hospital Encounter [facility] H Infusion 800 [place] [phone] Myelodysplasia (myelodysplastic syndrome) (CMS/HCC) (Primary Dx); Thrombocytopenia [...] first t manav in the morning (EYE-BLUE PRINT CONTROL CLERK) to steady your nerves or to [...] daily. 90 tablet 3 09/11/2024 HYDROcodone-aceta minophen ([place]) 5-325 MG tablet Take 1 tablet by [...] Appointment PAV A Interventional Radiology [address] [place] [address] 02/10/2025 8:30 AM EDT Clinical Support [facility] Hematology/BMT and Cellular Therapy Program [address] [phone] 02/10/2025 9:00 AM EDT Office Visit [facility] Hematology/BMT and Cellular Therapy Program [address] [phone] Elaina Boss, [place] 800 [facility] [address] [place] [phone] 02/10/2025 10:30 AM EDT Appointment [facility] Infusion Clinic 1 [address] [place] [address] 02/11/2025 2:00 PM EDT Appointment [facility] Infusion [facility] 1 [address] [place] [address] 02/12/2025 2:00 PM EDT Appointment [facility] Infusion [facility] 1 [address] [place] [address] 02/13/2025 2:00 PM EDT Appointment [facility] Infusion [facility] 1 [address] [place] [address] 02/14/2025 2:00 PM EDT Appointment [facility] Infusion [facility] 1 [address] [place] [address] 03/10/2025 8:30 AM EDT Clinical Support [facility] Hematology/BMT and Cellular Therapy Program [address] [address] 03/10/2025 9:00 AM EDT Office Visit [facility] Hematology/BMT and Cellular Therapy Program [address] [phone] Isaura Wynn, DUST CONTROL ENGINEER 800 [facility] [address] [phone] 03/10/2025 11:20 AM EDT Office Visit Pav Head, Neck & Respiratory 800 [facility], 2nd [place] [address] Damari Razosey Marquis, DUST CONTROL ENGINEER 800 [place] [address] documented as of this encounter Procedures Procedure [...] ORDERAB LES Final Result BLOOD BANK 800 [place] [address], * Prepare Leukocyte Reduced Platelets: 1 Units (01/15/2025 9:55 AM EDT) Product Code [id number] CH BLOO D BANK Dispense Status Transfused BLOOD BANK Blood Expiration Date [id number] BLOOD BANK Unit Number [id number] CH B LOOD BANK Product Blood Type 6200 BLOOD BANK Blood Type A+ BLOOD BANK Blood Venous blood specimen / Unknown us Kayli CHIU BLOOD BANK PRODUCT ORDER VIKAS Final Result BLOOD BANK 800 [place] [address], * (ABNORMAL) CBC and differential (01/15/2025 8:17 AM EDT) WBC Count 0.53(LL) 3.70 - 10.30 10*3/uL LAB HEMATOLOGY METHOD 01/15/2025 11:53 AM EDT [facility] RBC Count 2.82(L) 4.60 - 6.10 10*6/uL LAB HEMATOLOGY METHOD 01/15/2025 11:53 AM EDT [facility] HGB 8.2(L) 13.7 - 17.5 g/dL LAB HEMATOLOGY METHOD 01/15/2025 11:53 AM EDT [facility] HCT 24.0(L) 40.0 - 51.0 % LAB HEMATOLOGY METHOD 01/15/2025 11:53 AM EDT [facility] Platelet Count 18(LL) 155 - 369 10*3/uL LAB HEMATOLOGY METHOD 01/15/2025 11:53 AM EDT [facility] MCV 85 79 - 98 fL LAB HEMATOLOGY METHOD 01/15/2025 11:53 AM EDT [facility] MCH 29.1 26.0 - 32.0 pg LAB HEMATOLOGY METHOD 01/15/2025 11:53 AM EDT [facility] MCHC 34.2 30.7 - 35.5 g/dL LAB HEMATOLOGY METHOD 01/15/2025 11:53 AM EDT [facility] RDW 14.2 11.5 - 14.5 % LAB HEMATOLOGY METHOD 01/15/2025 11:53 AM EDT [facility] MPV 9.3 8.8 - 12.5 fL LAB HEMATOLOGY METHOD 01/15/2025 11:53 AM EDT [facility] nRBC 0.0 <=0.0 per 100 WBCs LAB HEMATOLOGY METHOD 01/15/2025 11:53 AM EDT [facility] Differential Type Automated LAB HEMATOLOGY METHOD 01/15/2025 11:53 AM EDT [facility] Neutrophils % 8 % LAB HEMATOLOGY METHOD 01/15/2025 11:53 AM EDT [facility] Lymphocytes % 88 % LAB HEMATOLOGY METHOD 01/15/2025 11:53 AM EDT [facility] Monocytes % 4 % LAB HEMATOLOGY METHOD 01/15/2025 11:53 AM EDT [facility] Eosinophils % 0 % LAB HEMATOLOGY METHOD 01/15/2025 11:53 AM EDT [facility] Basophils % 0 % LAB HEMATOLOGY METHOD 01/15/2025 11:53 AM EDT [facility] Immature Granulocytes % 0 % LAB HEMATOLOGY METHOD 01/15/2025 11:53 AM EDT [facility] Neutrophils Absolute 0.04(LL) 1.60 - 6.10 10*3/uL LAB HEMATOLOGY METHOD 01/15/2025 11:53 AM EDT [facility] Lymphocytes Absolute 0.47(L) 1.20 - 3.90 10*3/uL LAB HEMATOLOGY METHOD 01/15/2025 11:53 AM EDT [facility] Monocytes Absolute 0.02(L) 0.30 - 0.90 10*3/uL LAB HEMATOLOGY METHOD 01/15/2025 11:53 AM EDT [facility] Eosinophils Absolute 0.00 0.00 - 0.50 10*3/uL LAB HEMATOLOGY METHOD 01/15/2025 11:53 AM EDT [facility] Basophils Absolute 0.00 0.00 - 0.10 10*3/uL LAB HEMATOLOGY METHOD 01/15/2025 11:53 AM EDT [facility] Immature Granulocytes Absolute 0.00 0.00 - 0.06 10*3/uL LAB HEMATOLOGY METHOD 01/15/2025 11:53 AM EDT [facility] Blood Blood sample taken from central line / Unknown (Port) Long-term Catheter / Unknown 01/15/2025 8:17 AM EDT 01/15/2025 8:59 AM EDT [facility] - 01/15/2025 11:53 AM EDT Therapeutic decision making should be based on absolute values, rather than percentages. us Virgen Vargas MD LAB BLOOD ORDERABLES Final Re sult [facility] [address] [place] [address] * (ABNORMAL) BASIC METABOLIC PANEL (01/15/2025 8:17 AM EDT) Glucose, Plasma 96 74 - 99 mg/dL 01/15/2025 9:19 AM EDT [facility] BUN, Plasma 12 8 - 23 mg/dL 01/15/2025 9:19 AM EDT [facility] Creatinine, Plasma 0.71 0.70 - 1.20 mg/dL 01/15/2025 9:19 AM EDT [facility] BUN/Creatinine Ratio 17 01/15/2025 9:19 AM EDT [facility] Sodium, Plasma 139 136 - 145 mmol/L 01/15/2025 9:19 AM EDT [facility] Potassium, Plasma 4.1 3.6 - 4.9 mmol/L 01/15/2025 9:19 AM EDT [facility] Chloride, Plasma 108(H) 97 - 107 mmol/L 01/15/2025 9:19 AM EDT [facility] CO2, Plasma 21(L) 22 - 29 mmol/L 01/15/2025 9:19 AM EDT [facility] Anion Gap 10 6 - 16 mmol/L 01/15/2025 9:19 AM EDT [facility] Total Calcium, Plasma 8.9 8.9 - 10.2 mg/dL 01/15/2025 9:19 AM EDT [facility] eGFRcr 99.3 mL/min/1.7 3m*2 01/15/2025 9:19 AM EDT [facility] Comment:Reported eGFRcr in m L/min/1.73m2 is based the CKD-EPI 2020 equation that does not use a race coefficient. Blood Blood sample taken from central line / Unknown (Port) Long-term Catheter / Unknown 01/15/2025 8:17 AM EDT 01/15/2025 8:47 AM EDT us Virgen Vargas MD LAB BLOOD ORDERABLES Final Re sult [facility] 800 [place] [address] * (ABNORMAL) Uric acid (01/15/2025 8:17 AM EDT) Uric Acid, Plasma 3.0(L) 3.7 - 8.0 mg/dL 01/15/2025 9:19 AM EDT [facility] Blood Blood sample taken from central line / Unknown (Port) Long-term Catheter / Unknown 01/15/2025 8:17 AM EDT 01/15/2025 8:47 AM EDT Virgen Vargas MD LAB BLOOD ORDERAB[place] [address] * Phosphorus (01/15/2025 8:17 AM EDT) Phosphorus, Plasma 3.1 2.5 - 4.5 mg/dL 01/15/2025 9:19 AM EDT [facility] Blood Blood sample taken from central line / Unknown (Port) Long-term Catheter / Unknown 01/15/2025 8:17 AM EDT 01/15/2025 8:47 AM EDT Virgen Vargas MD LAB BLOOD ORDERABLES [place] [address] * Magnesium (01/15/2025 8:17 AM EDT) Magnesium, Plasma 2.2 1.9 - 2.4 mg/dL 01/15/2025 9:19 AM EDT [facility] Blood Blood sample taken from central line / Unknown (Port) Long-term Catheter / Unknown 01/15/2025 8:17 AM EDT 01/15/2025 8:47 AM EDT Virgen Vargas MD LAB BLOOD ORDERABLES Final Re sult [facility] [address] [place] [address] * LACTATE DEHYDROGENASE (01/15/2025 8:17 AM EDT) LDH, Plasma 192 116 - 250 U/L 01/15/2025 9:19 AM EDT [facility] Blood Blood sample taken from central line / Unknown (Port) Long-term Catheter / Unknown 01/15/2025 8:17 AM EDT 01/15/2025 8:47 AM EDT us Virgen Vargas MD LAB BLOOD ORDERABLES Final [facility] Performing Organization Address [facility]/ZIP Co de Phone Number [facility] [address] [place] [address] documented in this encounter Visit Diagnoses Diagnosis [...] documented as of this encounter Care Teams Washer And Crusher Tender Relationship Specialty Start Date End Date Zhao Harris MD [address] [place] [address] PCP - General 12/03/20 documented as of this encounter
--- OUTSIDE RECORDS SUMMARY | 2025-01-15 09:58 | XMS_ITS | Encounter Summary ---
Author Organization Healthcare Address [address] [place] [address] Care Team Providers Care Healthcare Administration Intern Name Role Phone Zhao Harris MD Primary Care Provider [phone] Encounter Details Date Type Department Care Team (Latest Contact Info) Description 01/15/2025 9:58 AM EDT - 01/15/2025 11:59 PM EDT Hospital Encounter [facility]fusion [address] [place] [address] Discharge Disposition: Home or Self Care Social [...] drink first t manav in the morning (EYE-METALWORKING SPECIALIST) to steady your nerves or to [...] 5 MG tabletIndications :Coronary artery disease involving [place] heart with angina pectoris, unspecified vessel or lesion type (CMS/HCC),Hyperte nsion, unspecified type Take 1 tablet (5 mg) by mouth daily. 90 tablet 3 09/11/2024 HYDROcodone-aceta minophen ([place]) 5-325 MG tablet Take 1 tablet by [...] MG SL tabletIndications :Coronary artery disease involving [place] heart with angina pectoris, unspecified vessel or [...] Appointment [facility] Inter[facility] [address] [place] [address] 02/10/2025 8:30 AM EDT Clinical Support [facility] CC Hematology/BMT and Cellular Therapy Program [address] [address] 02/10/2025 9:00 AM EDT Office Visit [facility] Hematology/BMT and Cellular Therapy Program [address] [address] Elaina Boss, PA 800 [facility] [address] [place] [phone] 02/10/2025 10:30 AM EDT Appointment [facility] 1 744 [place] [address] 02/11/2025 2:00 PM EDT Appointment [facility] 1 [address] [place] [address] 02/12/2025 2:00 PM EDT Appointment [facility] 1 [address] [place] [address] 02/13/2025 2:00 PM EDT Appointment [facility] 1 [address] [place] [address] 02/14/2025 2:00 PM EDT Appointment [facility] 1 [address] [place] [address] 03/10/2025 8:30 AM EDT Clinical Support [facility] Hematology/BMT and Cellular Therapy Program [address] [address] 03/10/2025 9:00 AM EDT Office Visit [facility] Hematology/BMT and Cellular Therapy Program [address] [address] Isaura Wynn, ESTRELLA 800 [facility] [address] [phone] 03/10/2025 11:20 AM EDT Office Visit [facility] Head[facility] Neck [facility] Respiratory 800 [facility], 2nd [place] [phone] Elsa Razo, IMPLEMENTATION SPECIALIST [address] [place] [phone] documented as of this encounter Visit Diagnoses [...] documented as of this encounter Care Teams Healthcare Administration Intern Relationship Specialty Start Date End Date Zhao Harris MD [address] [place], [place] [phone] PCP - General 12/03/20 documented as of this encounter
--- OUTSIDE RECORDS SUMMARY | 2025-01-16 07:55 | XMS_ITS | Encounter Summary ---
Author Organization [facility] Address [address] [place] [address] Care Team Providers Care Center Machine Set Up Operator Name Role Phone Zhao Harris MD Primary Care Provider + [phone] Reason for Visit * Episode Based Medications (Routine) - Authorized Specialty Diagnoses / Procedures Referred By Justice mcgee Referred To Contact Diagnoses Myelodysplasia (myelodysplastic syndrome) (CMS/HCC) Procedures Decitabine Daily x 5 / Venetoclax Every 28 Days Virgen Vargas MD 800 [facility] [address] [address] Phone: tel: fax: Virgen Vargas MD [address] [address] Phone: tel: fax: Referral ID Status Reason Start Date Expiration Date V isits Requested Visits Authorized [id number] Authorized 01/13/2025 07/15/2026 1 30 Encounter Details Date Type Department Care Team (Latest Contact Info) Description 01/16/2025 7:55 AM EDT - 01/16/2025 11:59 PM EDT Hospital Encounter PAV H Infusion 800 [place] [phone] Myelodysplasia (myelodysplastic syndrome) (CMS/HCC) (Primary Dx) Discharge [...] first t manav in the morning (EYE-CLINICAL APPLICATION CONSULTANT) to steady your nerves or to [...] daily. 90 tablet 3 09/11/2024 HYDROcodone-aceta minophen ([place]) 5-325 MG tablet Take 1 tablet by [...] Appointment PAV A Interventional Radiology [address] [place] [address] 02/10/2025 8:30 AM EDT Clinical Support PAV Hematology/BMT and Cellular Therapy Program [address] [address] 02/10/2025 9:00 AM EDT Office Visit PAV Hematology/BMT and Cellular Therapy Program [address] [phone] Elaina Boss PA 800 [facility] [address] [place] [phone] 02/10/2025 10:30 AM EDT Appointment [facility] Infusion Clinic 1 744 [place] [address] 02/11/2025 2:00 PM EDT Appointment [facility] Infusion Clinic 1 744 [place] [address] 02/12/2025 2:00 PM EDT Appointment [facility] Infusion Clinic 1 744 [place] [address] 02/13/2025 2:00 PM EDT Appointment [facility] Infusion Clinic 1 744 [place] [address] 02/14/2025 2:00 PM EDT Appointment [facility] Infusion Clinic 1 [address]44 [place] [address] 03/10/2025 8:30 AM EDT Clinical Support PAV CC Hematology/BMT and Cellular Therapy Program [address] [address] 03/10/2025 9:00 AM EDT Office Visit PAV CC Hematology/BMT and Cellular Therapy Program [address] [phone] Isaura Wynn, CLEAN ENERGY POLICY ANALYST 800 [facility] [address] [place] [phone] 03/10/2025 11:20 AM EDT Office Visit Pav CC Head, Neck & Respiratory 800 [facility], [address]nd [place] [address] Elsa Razo, CLEAN ENERGY POLICY ANALYST 800 [place] [phone] documented as of this encounter Procedures Procedure [...] ORDERABLE S Final Result Performing Organization Address City/State/[facility] Co de Phone Number BLOOD BANK [address] * (ABNORMAL) CBC W/O Differential (01/16/2025 8:12 AM EDT) WBC Count 0.49(LL) 3.70 - 10.30 10*3/uL LAB HEMATOLOGY METHOD 01/16/2025 11:30 AM EDT [facility] RBC Count 2.65(L) 4.60 - 6.10 10*6/uL LAB HEMATOLOGY METHOD 01/16/2025 11:30 AM EDT [facility] HGB 8.0(L) 13.7 - 17.5 g/dL LAB HEMATOLOGY METHOD 01/16/2025 11:30 AM EDT [facility] HCT 23.0(L) 40.0 - 51.0 % LAB HEMATOLOGY METHOD 01/16/2025 11:30 AM EDT [facility] Platelet Count 39(L) 155 - 369 10*3/uL LAB HEMATOLOGY METHOD 01/16/2025 11:30 AM EDT [facility] MCV 87 79 - 98 fL LAB HEMATOLOGY METHOD 01/16/2025 11:30 AM EDT [facility] MCH 30.2 26.0 - 32.0 pg LAB HEMATOLOGY METHOD 01/16/2025 11:30 AM EDT [facility] MCHC 34.8 30.7 - 35.5 g/dL LAB HEMATOLOGY METHOD 01/16/2025 11:30 AM EDT [facility] RDW 14.5 11.5 - 14.5 % LAB HEMATOLOGY METHOD 01/16/2025 11:30 AM EDT [facility] MPV 10.2 8.8 - 12.5 fL LAB HEMATOLOGY METHOD 01/16/2025 11:30 AM EDT [facility] nRBC 0.0 <=0.0 per 100 WBCs LAB HEMATOLOGY METHOD 01/16/2025 11:30 AM EDT [facility] Blood Blood sample taken from central line / Unknown Venipuncture / Unknown 01/16/2025 8:12 AM EDT 01/16/2025 8:27 AM EDT Virgen Vargas MD LAB BLOOD ORDERABLES Final Re sult Performing Organization Address City/[facility] Co de Phone Number [facility] 800 [place] [address] * (ABNORMAL) Platelet count (01/16/2025 8:12 AM EDT) [facility] Signature Platelet Count 39(L) 155 - 369 10*3/uL LAB HEMATOLOGY METHOD 01/16/2025 8:38 AM EDT [facility] Blood Blood sample taken from central line / Unknown Venipuncture / Unknown 01/16/2025 8:12 AM EDT 01/16/2025 8:27 AM EDT Virgen Vargas MD LAB BLOOD ORDERABLES Final Re sult Performing Organization Address City/[facility]/ZIP Co de Phone Number [facility] 800 [place] [address] documented in this encounter Visit Diagnoses Diagnosis [...] documented as of this encounter Care Teams Center Machine Set Up Operator Relationship Specialty Start Date End Date Zhao Harris MD [address] [place] [address] [place] [address] PCP - General 12/03/20 documented as of this encounter
--- OUTSIDE RECORDS SUMMARY | 2025-01-17 07:45 | XMS_ITS | Encounter Summary ---
Author Organization [facility] Address [address] [place] [address] Care Team Providers Care Fish Receiver Name Role Phone Zhao Harris MD Primary Care Provider + [phone] Reason for Visit * Episode Based Medications (Routine) - Authorized Specialty Diagnoses / Procedures Referred By Justice mcgee Referred To Contact Diagnoses Myelodysplasia (myelodysplastic syndrome) (CMS/HCC) Procedures Decitabine Daily x 5 / Venetoclax Every 28 Days Virgen Vargas MD 800 [facility] [address] [address] Phone: tel: fax: Virgen Vargas MD [address] [address] Phone: tel: fax: Referral ID Status Reason Start Date Expiration Date V isits Requested Visits Authorized [id number] Authorized 01/13/2025 07/15/2026 1 30 Encounter Details Date Type Department Care Team (Latest Contact Info) Description 01/17/2025 7:45 AM EDT - 01/17/2025 11:59 PM EDT Hospital Encounter PAV H Infusion 800 [place] [phone] Myelodysplasia (myelodysplastic syndrome) (CMS/HCC) (Primary Dx); Thrombocytopenia [...] drink first t manav in the morning (EYE-DEPUTY SHERIFF LIEUTENANT) to steady your nerves or to [...] daily. 90 tablet 3 09/11/2024 HYDROcodone-aceta minophen ([place]) 5-325 MG tablet Take 1 tablet by [...] PAV A Interventional Radiology [address] [place] [address] 02/10/2025 8:30 AM EDT Clinical Support PAV Hematology/BMT and Cellular Therapy Program [address] [place] [address] 02/10/2025 9:00 AM EDT Office Visit P[facility] Hematology/BMT and Cellular Therapy Program [address] [address] Elaina Boss PA 800 [facility] [address] [place] [address] 02/10/2025 10:30 AM EDT Appointment [facility] Infusion [facility] 1 [address] [place] [address] 02/11/2025 2:00 PM EDT Appointment [facility] 1 [address] [place] [address] 02/12/2025 2:00 PM EDT Appointment [facility] 1 [address] [place] [address] 02/13/2025 2:00 PM EDT Appointment [facility] 1 [address] [place] [address] 02/14/2025 2:00 PM EDT Appointment [facility] 1 [address] [place] [address] 03/10/2025 8:30 AM EDT Clinical Support PAV Hematology/BMT and Cellular Therapy Program [address] [address] 03/10/2025 9:00 AM EDT Office Visit PAV Hematology/BMT and Cellular Therapy Program [address] [phone] Isaura Wynn, FLIGHT TEST MECHANIC 800 [facility] [address] [place] [phone] 03/10/2025 11:20 AM EDT Office Visit Pav CC Head, Neck & Respiratory 800 [facility], 2nd [place] [address] Elsa Razo, FLIGHT TEST MECHANIC 800 [place] [address] documented as of this encounter Procedures Procedure [...] Units, Irradiated (01/17/2025 8:56 AM EDT) Pathologist [facility] Product Code [id number] BLOO D BANK Dispense Status Transfused BLOOD BANK Blood Expiration Date [id number] BLOOD BANK Unit Number [id number] B LOOD BANK Product Blood Type 9500 BLOOD BANK Blood Type O- BLOOD BANK Crossmatch Compatible BLOOD BANK Other Kayli CHIU BLOOD BANK PRODUCT ORDER VIKAS Final Result Performing Organization Address City/State/[facility] Co de Phone Number BLOOD BANK 800 [place] [address], * (ABNORMAL) CBC and differential (01/17/2025 8:03 AM EDT) WBC Count 0.54(LL) 3.70 - 10.30 10*3/uL LAB HEMATOLOGY METHOD 01/17/2025 9:41 AM EDT [facility] RBC Count 2.55(L) 4.60 - 6.10 10*6/uL LAB HEMATOLOGY METHOD 01/17/2025 9:41 AM EDT [facility] HGB 7.6(L) 13.7 - 17.5 g/dL LAB HEMATOLOGY METHOD 01/17/2025 9:41 AM EDT [facility] HCT 21.6(L) 40.0 - 51.0 % LAB HEMATOLOGY METHOD 01/17/2025 9:41 AM EDT [facility] Platelet Count 23(L) 155 - 369 10*3/uL LAB HEMATOLOGY METHOD 01/17/2025 9:41 AM EDT [facility] MCV 85 79 - 98 fL LAB HEMATOLOGY METHOD 01/17/2025 9:41 AM EDT [facility] MCH 29.8 26.0 - 32.0 pg LAB HEMATOLOGY METHOD 01/17/2025 9:41 AM EDT [facility] MCHC 35.2 30.7 - 35.5 g/dL LAB HEMATOLOGY METHOD 01/17/2025 9:41 AM EDT [facility] RDW 14.2 11.5 - 14.5 % LAB HEMATOLOGY METHOD 01/17/2025 9:41 AM EDT [facility] MPV 9.0 8.8 - 12.5 fL LAB HEMATOLOGY METHOD 01/17/2025 9:41 AM EDT [facility] nRBC 0.0 <=0.0 per 100 WBCs LAB HEMATOLOGY METHOD 01/17/2025 9:41 AM EDT [facility] Differential Type Automated LAB HEMATOLOGY METHOD 01/17/2025 9:41 AM EDT [facility] Neutrophils % 7 % LAB HEMATOLOGY METHOD 01/17/2025 9:41 AM EDT [facility] Lymphocytes % 91 % LAB HEMATOLOGY METHOD 01/17/2025 9:41 AM EDT [facility] Monocytes % 2 % LAB HEMATOLOGY METHOD 01/17/2025 9:41 AM EDT [facility] Eosinophils % 0 % LAB HEMATOLOGY METHOD 01/17/2025 9:41 AM EDT [facility] Basophils % 0 % LAB HEMATOLOGY METHOD 01/17/2025 9:41 AM EDT [facility] Immature Granulocytes % 0 % LAB HEMATOLOGY METHOD 01/17/2025 9:41 AM EDT [facility] Neutrophils Absolute 0.04(LL) 1.60 - 6.10 10*3/uL LAB HEMATOLOGY METHOD 01/17/2025 9:41 AM EDT [facility] Lymphocytes Absolute 0.49(L) 1.20 - 3.90 10*3/uL LAB HEMATOLOGY METHOD 01/17/2025 9:41 AM EDT [facility] Monocytes Absolute 0.01(L) 0.30 - 0.90 10*3/uL LAB HEMATOLOGY METHOD 01/17/2025 9:41 AM EDT [facility] Eosinophils Absolute 0.00 0.00 - 0.50 10*3/uL LAB HEMATOLOGY METHOD 01/17/2025 9:41 AM EDT [facility] Basophils Absolute 0.00 0.00 - 0.10 10*3/uL LAB HEMATOLOGY METHOD 01/17/2025 9:41 AM EDT [facility] Immature Granulocytes Absolute 0.00 0.00 - 0.06 10*3/uL LAB HEMATOLOGY METHOD 01/17/2025 9:41 AM EDT [facility] Blood Blood sample taken from central line / Unknown (Port) Long-term Catheter / Unknown 01/17/2025 8:03 AM EDT 01/17/2025 8:07 AM EDT Narrative [facility] - 01/17/2025 9:41 AM EDT Therapeutic decision making should be based on absolute values, rather than percentages. us Virgen Vargas MD LAB BLOOD ORDERABLES Final Re sult [facility] 800 [place] [address] documented in this encounter Visit Diagnoses Diagnosis [...] as of this encounter Care Teams Fish Receiver Relationship Specialty Start Date End Date Zhao Harris MD [address] [place] [address] PCP - General 12/03/20 documented as of this encounter
[2025-01-20] VITALS (11 sets, daily range): BP systolic 106–132; BP diastolic 45–74; PULSE 67–73; RESP 18; TEMP 36.7–37.1; O2SAT 98–100; BMI 30.1
--- OUTSIDE RECORDS SUMMARY | 2025-01-20 08:36 | XMS_ITS | Encounter Summary ---
Author Organization [facility] Address [address] [place] [address] Care Team Providers Care Sports Official Name Role Phone Zhao Harris MD Primary Care Provider [phone] Encounter Details Date Type Department Care Team (Latest Contact Info) Description 01/14/2025 Travel Social History Tobacco Use Types Packs/Day [...] first t manav in the morning (EYE-CLOTH PRINTING BACK TENDER) to steady your nerves or to [...] [facility] Contact Info) Description 02/02/2025 11:00 AM EDT Appointment PAV A Interventional Radiology [address] [place] [address] 02/10/2025 8:30 AM EDT Clinical Support PAV CC Hematology/BMT and Cellular Therapy Program [address] [place] [address] [place] [address] 02/10/2025 9:00 AM EDT Office Visit P[facility] CC Hematology/BMT and Cellular Therapy Program [address] [place] [phone] Elaina Boss, PA 800 [facility] [address] [place] [phone] 02/10/2025 10:30 AM EDT Appointment [facility] Infusion [facility] 1 [address] [place] [address] 02/11/2025 2:00 PM EDT Appointment [facility] 1 [address] [place] [address] 02/12/2025 2:00 PM EDT Appointment [facility] 1 [address] [place] [address] 02/13/2025 2:00 PM EDT Appointment [facility] 1 [address] [place] [address] 02/14/2025 2:00 PM EDT Appointment [facility] 1 [address] [place] [address] 03/10/2025 8:30 AM EDT Clinical Support [facility] CC Hematology/BMT and Cellular Therapy Program [address] [place] [address] [place] [address] 03/10/2025 9:00 AM EDT Office Visit P[facility] CC Hematology/BMT and Cellular Therapy Program [address] [place] [address] [place] [phone] Isaura Wynn, PRICING STRATEGIST 800 [facility] [address] [place] [address] 03/10/2025 11:20 AM EDT Office Visit Pav CC Head, Neck & Respiratory 800 [facility], [address]nd [place] [address] Elsa Razo, PRICING STRATEGIST [address] [place] [address] documented as of this encounter Visit Diagnoses [...] as of this encounter Care Teams Sports Official Relationship Specialty Start Date End Date Zhao Harris MD 1210 [facility] [address] [place] [id number] PCP - General 12/03/20 documented as of this encounter
--- OUTSIDE RECORDS SUMMARY | 2025-01-20 08:36 | XMS_ITS | Encounter Summary ---
Author Organization [facility] Address [address] [place] [address] Care Team Providers Care Climate Change Risk Assessor Name Role Phone Zhao Harris MD Primary Care Provider [phone] Encounter Details Date Type Department Care Team (Latest Contact Info) Description 01/13/2025 Travel Social History Tobacco Use Types Packs/Day [...] drink first t manav in the morning (EYE-DYE RANGE FEEDER) to steady your nerves or to get rid of a hangover? 0 11/03/2024 CAGE Questionnaire Score 0 025 Sex and Gender Information Value Date Recorded Sex Assigned at Male 05/18/2023 9:35 AM EDT Legal Sex Male 7:29 PM EDT Gender Identity Male 05/18/2023 9:35 AM EDT Sexual Orientation Straight 05/18/2023 9: 35 AM EDT documented as of this encounter Functional Status * Over the past 2 weeks, how often have you been bothered by any of the following problems? Question Answer Date of Assessment Author Little interest or pleasure in doing things Not at all 01/13/2025 10:14 AM EDT Cecelia Diaz W Feeling down, depressed, or hopeless Several days 01/13/2025 10:14 AM EDT Emily Cecelia W Patient Health Questionnaire -2 Score 1 01/13/2025 10:14 AM EDT Emily Cecelia W * Calculated C-SSRS Risk Score (Lifetime/Recent) Answer Date of Assessment Author No Risk Indicated 01/13/2025 10:14 AM EDT Cecelia Messina W * Question Answer Date of Assessment Author 1. Wish to be (Past 1 Month) No 025 10:14 AM EDT Cecelia Diaz W 2. Non-Specific Active Suici berry Thoughts (Past 1 Month) No 01/13/2025 10:14 AM EDT Neeta Diaz W documented as of this encounter Plan of Treatment Upcoming Encounters Date Type Department Care Team (Late st Contact Info) Description 02/02/2025 11:00 AM EDT Appointment [facility] A Interventional Radiology [address] [place] [address] 02/10/2025 8:30 AM EDT Clinical Support P[facility] CC Hematology/BMT and Cellular Therapy Program [address] [address] 02/10/2025 9:00 AM EDT Office Visit [facility] CC Hematology/BMT and Cellular Therapy Program [address] [phone] Elaina Boss PA 800 [facility] [address] [place] [phone] 02/10/2025 10:30 AM EDT Appointment [facility] 1 744 [place] [address] 02/11/2025 2:00 PM EDT Appointment [facility] 1 [address] [place] [address] 02/12/2025 2:00 PM EDT Appointment [facility] 1 [address] [place] [address] 02/13/2025 2:00 PM EDT Appointment [facility] 1 [address] [place] [address] 02/14/2025 2:00 PM EDT Appointment [facility] 1 [address] [place] [address] 03/10/2025 8:30 AM EDT Clinical Support [facility] Hematology/BMT and Cellular Therapy Program [address] [place] [address] 03/10/2025 9:00 AM EDT Office Visit PAV Hematology/BMT and Cellular Therapy Program [address] [address] Isaura Wynn, AGRICULTURAL SCIENTIST 800 [facility] [address] [place] [phone] 03/10/2025 11:20 AM EDT Office Visit Pav CC Head, Neck & Respiratory 800 [facility], 2nd [place] [phone] Elsa Razo, AGRICULTURAL SCIENTIST 800 [place] [phone] documented as of this encounter Visit Diagnoses [...] documented as of this encounter Care Teams Climate Change Risk Assessor Relationship Specialty Start Date End Date Zhao Harris MD 1210 [facility] [address] [address] PCP - General 12/03/20 documented as of this encounter
--- OUTSIDE RECORDS SUMMARY | 2025-01-20 08:36 | XMS_ITS | Encounter Summary ---
Author Organization [facility] Address [address] [place] [address] Care Team Providers Care Territory Outside Sales Manager Name Role Phone Zhao Harris MD Primary Care Provider [phone] Encounter Details Date Type Department Care Team (Latest Contact Info) Description 01/16/2025 Travel Social History Tobacco Use Types Packs/Day [...] drink first t manav in the morning (EYE-RAIL TRACK LAYER) to steady your nerves or to get [...] Upcoming Encounters Date Type Department Care Team ([facility] Contact Info) Description 02/02/2025 11:00 AM EDT Appointment [facility] A Interventional Radiology [address] [place] [address] 02/10/2025 8:30 AM EDT Clinical Support [facility] CC Hematology/BMT and Cellular Therapy Program [address] [place] [address] [place] [address] 02/10/2025 9:00 AM EDT Office Visit [facility] CC Hematology/BMT and Cellular Therapy Program [address] [place] [phone] Elaina Boss, PA 800 [facility] [address] [place] [phone] 02/10/2025 10:30 AM EDT Appointment [facility] 1 [address] [place] [address] 02/11/2025 2:00 PM EDT Appointment [facility] 1 [address] [place] [address] 02/12/2025 2:00 PM EDT Appointment [facility] 1 [address] [place] [address] 02/13/2025 2:00 PM EDT Appointment [facility] 1 [address] [place] [address] 02/14/2025 2:00 PM EDT Appointment [facility] 1 4 [place] [address] 03/10/2025 8:30 AM EDT Clinical Support [facility] Hematology/BMT and Cellular Therapy Program [address] [place] [address] [place] [address] 03/10/2025 9:00 AM EDT Office Visit [facility] CC Hematology/BMT and Cellular Therapy Program [address] [place] [address] [place] [phone] Isaura Wynn, DAIRY AND FOOD LABORATORY ASSISTANT 800 [facility] [address] [place] [address] 03/10/2025 11:20 AM EDT Office Visit Pav CC Head, Neck & Respiratory 800 [facility], 2nd [place] [address] Elsa Razo, DAIRY AND FOOD LABORATORY ASSISTANT 800 [place] [phone] documented as of this encounter Visit Diagnoses [...] documented as of this encounter Care Teams Territory Outside Sales Manager Relationship Specialty Start Date End Date Zhao Harris MD 1210 [facility] [address] [place] [id number] PCP - General 12/03/20 documented as of this encounter
--- OUTSIDE RECORDS SUMMARY | 2025-01-20 08:36 | XMS_ITS | Encounter Summary ---
Author Organization [facility] Address [address] [place] [address] Care Team Providers Care Manager Package Name Role Phone Zhao Harris MD Primary Care Provider [phone] Reason for Visit * Reason Comments Med Refill Encounter Details Date Type Department Care Team ([facility] st Contact Info) Description 01/01/2025 Refill [facility] [place] 800 [facility] [place] [address] Ra Best MD [address] [place] [address] Social History Tobacco Use Types Packs/Day Years [...] drink first t manav in the morning (EYE-VP GLOBAL MARKETING [employer]) to steady your nerves or to get [...] Appointment P[facility] A Interventional Radiology [address] [place] [address] 02/10/2025 8:30 AM EDT Clinical Support P[facility] Hematology/BMT and Cellular Therapy Program [address] [place] [phone] 02/10/2025 9:00 AM EDT Office Visit PAV Hematology/BMT and Cellular Therapy Program [address] [phone] Elaina Boss, ARAM 800 [facility] [address] [place] [phone] 02/10/2025 10:30 AM EDT Appointment [facility] 1 744 [place] [address] 02/11/2025 2:00 PM EDT Appointment [facility] 1 [address] [place] [address] 02/12/2025 2:00 PM EDT Appointment [facility] 1 [address] [place] [address] 02/13/2025 2:00 PM EDT Appointment [facility] 1 [address] [place] [address] 02/14/2025 2:00 PM EDT Appointment [facility] 1 [address] [place] [address] 03/10/2025 8:30 AM EDT Clinical Support [facility] CC Hematology/BMT and Cellular Therapy Program [address] [address] 03/10/2025 9:00 AM EDT Office Visit [facility] CC Hematology/BMT and Cellular Therapy Program 750 [facility] [place] [phone] Isaura Wynn, WATER CHASER 800 [facility] [address] [place] [phone] 03/10/2025 11:20 AM EDT Office Visit Pav CC Head, Neck & Respiratory 800 [facility], [address] [place] [phone] Elsa Razo, WATER CHASER 800 [place] [phone] documented as of this encounter Visit Diagnoses [...] as of this encounter Care Teams Manager Package Relationship Specialty Start Date End Date Zhao Harris MD 1210 [facility] [address] [place] [address] PCP - General 12/03/20 documented as of this encounter
--- OUTSIDE RECORDS SUMMARY | 2025-01-20 08:37 | XMS_ITS ---
Author Organization [facility] Address [address] [place] [address] Care Team Providers Care Wooden Box Maker Name Role Phone Zhao Harris MD Primary Care Provider [phone] Active Problems Problem Noted Date Diagnosed Date [...] tear 04/23/2014 Current Treatment and Therapy Plans Decitabine Daily x 5 / Venetoclax Every 28 Days* Plan Start Date:01/12/2025 Plan Provider:Virgen Vargas MD Linked Problems Myelodysplasia (myelodysplas tic syndrome) (CMS/HCC) Treatment Medications Current Day (Day 8 , Cycle 1 - Planned for 01/20/2025) Next Day (Day 10, Cycle 1 - Planned for 01/22/2025) decitabine (Dacogen)decitabi ne (Dacogen) IVPBvenetoclax (Venclexta) No medications scheduled. No medications [...] scheduled. Other (See Comments) Kayli Ospina PA Oncology Treatment Plan Name Start Date Discontinue Date Treatment Medications Discontinue Reason Plan Provider Cycles Azacitidine Daily x 7 / Venetoclax Every 28 Days 5 01/13/2025 azaCITIDine (Vidaza)azaCITIDi ne (Vidaza) IVPBvenetoclax (Venclexta) Progression Virgen Vargas MD 3 of 23 cycles started Lifetime Dose Tracking * Chemical Lifetime Dose [...]
--- OUTSIDE RECORDS SUMMARY | 2025-01-20 08:37 | XMS_ITS | Encounter Summary ---
Author Organization [facility] Address [address] [place] [address] Care Team Providers Care Hair Spring Cutter Name Role Phone Zhao Harris MD Primary Care Provider [phone] Encounter Details Date Type Department Care Team [...] drink first t manav in the morning (EYE-LABORER CHEESEMAKING) to steady your nerves or to get [...] Upcoming Encounters Date Type Department Care Team ([facility] Contact Info) Description 02/02/2025 11:00 AM EDT Appointment P[facility] A Interventional Radiology [address] [place] [address] 02/10/2025 8:30 AM EDT Clinical Support [facility] CC Hematology/BMT and Cellular Therapy Program [address] [place] [address] [place] [address] 02/10/2025 9:00 AM EDT Office Visit [facility] CC Hematology/BMT and Cellular Therapy Program [address] [place] [phone] Elaina Boss, PA 800 [facility] [address] [place] [address] 02/10/2025 10:30 AM EDT Appointment [facility]fusion [facility] 1 744 [place] [address] 02/11/2025 2:00 PM EDT Appointment [facility] 1 [address] [place] [address] 02/12/2025 2:00 PM EDT Appointment [facility] 1 [address] [place] [address] 02/13/2025 2:00 PM EDT Appointment [facility] 1 [address] [place] [address] 02/14/2025 2:00 PM EDT Appointment [facility]fusion [facility] 1 4 [place] [address] 03/10/2025 8:30 AM EDT Clinical Support [facility] CC Hematology/BMT and Cellular Therapy Program [address] [place] [address] [place] [address] 03/10/2025 9:00 AM EDT Office Visit [facility] CC Hematology/BMT and Cellular Therapy Program [address] [place] [address] [place] [phone] Isaura Wynn, ELECTRICAL PROSPECTOR 800 [facility] [address] [place] [address] 03/10/2025 11:20 AM EDT Office Visit Pav CC Head, Neck & Respiratory 800 [facility], 2nd [place] [address] Elsa Razo, ELECTRICAL PROSPECTOR 800 [place] [phone] documented as of this encounter Visit Diagnoses [...] documented as of this encounter Care Teams Hair Spring Cutter Relationship Specialty Start Date End Date Zhao Harris MD 1210 [facility] [address] [place] [address] PCP - General 12/03/20 documented as of this encounter
--- OUTSIDE RECORDS SUMMARY | 2025-01-20 08:37 | XMS_ITS | Encounter Summary ---
Author Organization [facility] Address [address] [place] [address] Care Team Providers Care Township Clerk Name Role Phone Zhao Harris MD Primary Care Provider [phone] Encounter Details Date Type Department Care Team [...] t manav in the morning (EYE-PATIENT SERVICES REP) to steady your nerves or to get [...] Upcoming Encounters Date Type Department Care Team ([facility] Contact Info) Description 02/02/2025 11:00 AM EDT Appointment PAV A Interventional Radiology [address] [place] [address] 02/10/2025 8:30 AM EDT Clinical Support P[facility] CC Hematology/BMT and Cellular Therapy Program [address] [place] [address] [place] [address] 02/10/2025 9:00 AM EDT Office Visit [facility] CC Hematology/BMT and Cellular Therapy Program [address] [place] [phone] Elaina Boss, PA 800 [facility] [address] [place] [phone] 02/10/2025 10:30 AM EDT Appointment [facility]fusion [facility] 1 744 [place] [address] 02/11/2025 2:00 PM EDT Appointment [facility]fusion [facility] 1 744 [place] [address] 02/12/2025 2:00 PM EDT Appointment [facility] 1 [address] [place] [address] 02/13/2025 2:00 PM EDT Appointment [facility] 1 [address] [place] [address] 02/14/2025 2:00 PM EDT Appointment [facility] Infusion [facility] 1 4 [place] [address] 03/10/2025 8:30 AM EDT Clinical Support P[facility] CC Hematology/BMT and Cellular Therapy Program [address] [place] [address] [place] [address] 03/10/2025 9:00 AM EDT Office Visit P[facility] CC Hematology/BMT and Cellular Therapy Program [address] [place] [address] [place] [phone] Isaura Wynn, TRAVEL GUIDE 800 [facility] [address]st [place] [address] 03/10/2025 11:20 AM EDT Office Visit Pav CC Head, Neck & Respiratory 800 [facility], 2nd [place] [address] Elsa Razo, TRAVEL GUIDE 800 [place] [phone] documented as of this encounter Visit Diagnoses [...] documented as of this encounter Care Teams Township Clerk Relationship Specialty Start Date End Date Zhao Harris MD 1210 [facility] [address] [place] [phone] PCP - General 12/03/20 documented as of this encounter
--- OUTSIDE RECORDS SUMMARY | 2025-01-20 08:37 | XMS_ITS | Encounter Summary ---
Author Organization [facility] Address [address] [place] [address] Care Team Providers Care Sample Tester Name Role Phone Zhao Harris MD Primary Care Provider [phone] Encounter Details Date Type Department Care Team (Late st Contact Info) Description 12/04/2024 Telephone [facility] Inter[facility] Rad[facility] [address] [place] [address] Martha William Social History Tobacco [...] drink first t manav in the morning (EYE-YARN PREPARATION SUPERVISOR) to steady your nerves or to [...] they need to bandage it. Requesting CB@ [phone] documented in this encounter Plan of Treatment Upcoming Encounters Date Type Department Care Team (Late st Contact Info) Description 02/02/2025 11:00 AM EDT Appointment PAV A Interventional Radiology [address] [place] [address] 02/10/2025 8:30 AM EDT Clinical Support PAV Hematology/BMT and Cellular Therapy Program [address] [address] 02/10/2025 9:00 AM EDT Office Visit P[facility] CC Hematology/BMT and Cellular Therapy Program [address] [address] Elaina Boss, ARAM 800 [facility] [address] [place] [address] 02/10/2025 10:30 AM EDT Appointment [facility]fusion [facility] 1 744 [place] [address] 02/11/2025 2:00 PM EDT Appointment [facility]fusion [facility] 1 [address] [place] [address] 02/12/2025 2:00 PM EDT Appointment [facility]fusion [facility] 1 [address] [place] [address] 02/13/2025 2:00 PM EDT Appointment [facility] 1 [address] [place] [address] 02/14/2025 2:00 PM EDT Appointment [facility]fusion [facility] 1 [address] [place] [address] 03/10/2025 8:30 AM EDT Clinical Support PAV Hematology/BMT and Cellular Therapy Program [address] [address] 03/10/2025 9:00 AM EDT Office Visit PAV Hematology/BMT and Cellular Therapy Program [address] [address] Isaura Wynn, FORMING PRESS OPERATOR 800 [facility] 1st [place] [address] 03/10/2025 11:20 AM EDT Office Visit Pav CC Head, Neck & Respiratory 800 [facility], 2nd [place] [address] Elsa Razo, FORMING PRESS OPERATOR 800 [place] [address] documented as of this encounter Visit Diagnoses [...] as of this encounter Care Teams Sample Tester Relationship Specialty Start Date End Date Zhao Harris MD [address] [address] PCP - General 12/03/20 documented as of this encounter
--- OUTSIDE RECORDS SUMMARY | 2025-01-20 08:37 | XMS_ITS | Encounter Summary ---
Author Organization [facility] Address [address] [place] [address] Care Team Providers Care Hand Tube Bender Name Role Phone Zhao Harris MD Primary Care Provider [phone] Encounter Details Date Type Department Care Team [...] drink first t manav in the morning (EYE-CINDER MAN) to steady your nerves or to [...] Upcoming Encounters Date Type Department Care Team ([facility] Contact Info) Description 02/02/2025 11:00 AM EDT Appointment PAV A Interventional Radiology [address] [place] [address] 02/10/2025 8:30 AM EDT Clinical Support P[facility] CC Hematology/BMT and Cellular Therapy Program [address] [place] [address] [place] [address] 02/10/2025 9:00 AM EDT Office Visit P[facility] CC Hematology/BMT and Cellular Therapy Program [address] [place] [phone] Elaina Boss, PA 800 [facility] [address] [place] [address] 02/10/2025 10:30 AM EDT Appointment [facility]fusion [facility] 1 744 [place] [address] 02/11/2025 2:00 PM EDT Appointment [facility] Infusion [facility] 1 [address] [place] [address] 02/12/2025 2:00 PM EDT Appointment [facility]fusion [facility] 1 [address] [place] [address] 02/13/2025 2:00 PM EDT Appointment [facility]fusion [facility] 1 [address] [place] [address] 02/14/2025 2:00 PM EDT Appointment [facility]fusion [facility] 1 4 [place] [address] 03/10/2025 8:30 AM EDT Clinical Support [facility] CC Hematology/BMT and Cellular Therapy Program [address] [place] [address] [place] [address] 03/10/2025 9:00 AM EDT Office Visit [facility] CC Hematology/BMT and Cellular Therapy Program [address] [place] [address] [place] [address] Isaura Wynn, FOOD COUNTER ATTENDANT 800 [facility] [address] [place] [address] 03/10/2025 11:20 AM EDT Office Visit Pav CC Head, Neck & Respiratory 800 [facility], 2nd [place] [address] Elsa Razo, FOOD COUNTER ATTENDANT 800 [place] [address] documented as of this encounter Visit Diagnoses [...] documented as of this encounter Care Teams Hand Tube Bender Relationship Specialty Start Date End Date Zhao Harris MD 1210 [facility] [address] [place] [id number] PCP - General 12/03/20 documented as of this encounter
--- OUTSIDE RECORDS SUMMARY | 2025-01-20 08:37 | XMS_ITS | Encounter Summary ---
Author Organization [facility] Address [address] [place] [address] Care Team Providers Care Duct Layer Name Role Phone Zhao Harris MD Primary Care Provider [phone] Encounter Details Date Type Department Care Team [...] drink first t manav in the morning (EYE-THERMODYNAMICS ENGINEER) to steady your nerves or to [...] Appointment PAV A Interventional Radiology [address] [place] [address] 02/10/2025 8:30 AM EDT Clinical Support PAV Hematology/BMT and Cellular Therapy Program [address] [address] 02/10/2025 9:00 AM EDT Office Visit PAV Hematology/BMT and Cellular Therapy Program [address] [place] [phone] Elaina Boss, ARAM 800 [facility] [address] [place] [address] 02/10/2025 10:30 AM EDT Appointment [facility] Infusion [facility] 1 [address]44 [place] [address] 02/11/2025 2:00 PM EDT Appointment [facility] 1 [address] [place] [address] 02/12/2025 2:00 PM EDT Appointment [facility] 1 [address] [place] [address] 02/13/2025 2:00 PM EDT Appointment [facility]fusion [facility] 1 [address]44 [place] [address] 02/14/2025 2:00 PM EDT Appointment [facility]fusion [facility] 1 [address] [place] [address] 03/10/2025 8:30 AM EDT Clinical Support P[facility] CC Hematology/BMT and Cellular Therapy Program 750 [facility], [address] [place] [address] 03/10/2025 9:00 AM EDT Office Visit P[facility] CC Hematology/BMT and Cellular Therapy Program 750 [facility], [address] [place] [phone] Isaura Wynn, SHOP SERVICE TECHNICIAN 800 [facility] [address] [place] [address] 03/10/2025 11:20 AM EDT Office Visit Pav CC Head, Neck & Respiratory 800 [facility], 2nd [place] [address] Elsa Razo, SHOP SERVICE TECHNICIAN 800 [place] [phone] documented as of this encounter Visit Diagnoses [...] documented as of this encounter Care Teams Duct Layer Relationship Specialty Start Date End Date Zhao Harris MD 1210 [facility] [address] [place] [address] PCP - General 12/03/20 documented as of this encounter
--- OUTSIDE RECORDS SUMMARY | 2025-01-20 08:37 | XMS_ITS | Encounter Summary ---
Author Organization [facility] Address [address] [place] [address] Care Team Providers Care Ladies Locker Room Attendant Name Role Phone Zhao Harris MD Primary Care Provider [phone] Encounter Details Date Type Department Care Team (Latest Contact Info) Description 01/15/2025 Travel Social History Tobacco Use Types Packs/Day [...] first t manav in the morning (EYE-MEDICAL RECORDS DIRECTOR) to steady your nerves or to [...] Department Care Team ([facility] Contact Info) Description 02/02/2025 11:00 AM EDT Appointment PAV A Interventional Radiology [address] [place] [address] 02/10/2025 8:30 AM EDT Clinical Support PAV CC Hematology/BMT and Cellular Therapy Program [address] [place] [address] [place] [address] 02/10/2025 9:00 AM EDT Office Visit PAV CC Hematology/BMT and Cellular Therapy Program [address] [place] [address] Elaina Boss, PA 800 [facility] [address] [place] [address] 02/10/2025 10:30 AM EDT Appointment [facility] Infusion [facility] 1 744 [place] [address] 02/11/2025 2:00 PM EDT Appointment [facility] Infusion [facility] 1 744 [place] [address] 02/12/2025 2:00 PM EDT Appointment [facility] 1 7[address] [place] [address] 02/13/2025 2:00 PM EDT Appointment [facility]fusion [facility] 1 7[address] [place] [address] 02/14/2025 2:00 PM EDT Appointment [facility] Infusion [facility] 1 4 [place] [address] 03/10/2025 8:30 AM EDT Clinical Support P[facility] CC Hematology/BMT and Cellular Therapy Program [address] [place] [address] [place] [address] 03/10/2025 9:00 AM EDT Office Visit PAV CC Hematology/BMT and Cellular Therapy Program [address] [place] [address] [place] [address] Isaura Wynn, BRICK CARRIER 800 [facility] [address] [place] [address] 03/10/2025 11:20 AM EDT Office Visit Pav CC Head, Neck & Respiratory 800 [facility], 2nd [place] [address] Elsa Razo, BRICK CARRIER 800 [place] [address] documented as of this encounter Visit Diagnoses [...] documented as of this encounter Care Teams Ladies Locker Room Attendant Relationship Specialty Start Date End Date Zhao Harris MD 1210 [facility] [address] [place] [phone] PCP - General 12/03/20 documented as of this encounter
--- OUTSIDE RECORDS SUMMARY | 2025-01-20 08:37 | XMS_ITS | Encounter Summary ---
Author Organization [facility] Address [address] [place] [address] Care Team Providers Care Optometry Assistant Name Role Phone Zhao Harris MD Primary Care Provider [phone] Encounter Details Date Type Department Care Team ([facility] st Contact Info) Description 12/23/2024 Orders Only PAV CC Hematology/BMT and Cellular Therapy Program [address] [place] [address] [place] [address] Adam Conway RN [facility] HEMATOLOGY [facility]INIC Myelodysplasia (myelodysplastic syndrome) [...] drink first t manav in the morning (EYE-STUDY MANAGER) to steady your nerves or to [...] Appointment PAV A Interventional Radiology [address] [place] [address] 02/10/2025 8:30 AM EDT Clinical Support PAV Hematology/BMT and Cellular Therapy Program [address] [address] 02/10/2025 9:00 AM EDT Office Visit PAV Hematology/BMT and Cellular Therapy Program [address] [address] Elaina Boss, PA 800 [facility] [address] [place] [address] 02/10/2025 10:30 AM EDT Appointment [facility] Infusion [facility] 1 744 [place] [address] 02/11/2025 2:00 PM EDT Appointment [facility]fusion [facility] 1 7[address] [place] [address] 02/12/2025 2:00 PM EDT Appointment [facility] Infusion [facility] 1 [address] [place] [address] 02/13/2025 2:00 PM EDT Appointment [facility] Infusion [facility] 1 [address] [place] [address] 02/14/2025 2:00 PM EDT Appointment [facility] Infusion [facility] 1 [address] [place] [address] 03/10/2025 8:30 AM EDT Clinical Support PAV CC Hematology/BMT and Cellular Therapy Program 750 [facility], [address] [place] [address] [place] [address] 03/10/2025 9:00 AM EDT Office Visit PAV CC Hematology/BMT and Cellular Therapy Program 750 [facility], [facility] [place] [address] Isaura Wynn, POST CLOSER 800 [facility] [address] [place] [address] 03/10/2025 11:20 AM EDT Office Visit Pav CC Head, Neck & Respiratory 800 [facility], 2nd [place] [address] Elsa Razo, POST CLOSER 800 [place] [phone] Scheduled Orders Name Type Priority Associated Diagnoses Orde r Schedule CBC and Differential Lab Routine Myelodysplasia (myelodysplastic syndrome) (CMS/HCC) Expected: 01/06/2025, Expires: 06/26/2026 documented as of this encounter Visit Diagnoses Diagnosis Myelodysplasia (myelodysplastic syndrome) ([facility])- Primary Myelodysplastic syndrome, unspecified documented in this encounter Additional Health Concerns Assessment Noted Time PHQ-9 Depression Total Score: 0 09/11/19 25 9:15 AM EST A fall risk assessment has been complete d for the patient 12/22/2024 8:26 AM EDT A Body Mass Index follow-up plan has been documented for the patient 12/16/2024 12:23 PM EDT documented as of this encounter Care Teams Optometry Assistant Relationship Specialty Start Date End Date Zhao Harris MD 1210 [facility] [address] [place] [address] PCP - General 12/03/20 documented as of this encounter
--- OUTSIDE RECORDS SUMMARY | 2025-01-20 08:37 | XMS_ITS | Encounter Summary ---
Author Organization [facility] Address [address] [place] [address] Care Team Providers Care Motor Driver Name Role Phone Zhao Harris MD Primary Care Provider [phone] Encounter Details Date Type Department Care Team [...] drink first t manav in the morning (EYE-FORK TRUCK OPERATOR) to steady your nerves or to [...] Type Department Care Team ([facility] Contact Info) Description 02/02/2025 11:00 AM EDT Appointment PAV A Interventional Radiology [address] [place] [address] 02/10/2025 8:30 AM EDT Clinical Support PAV CC Hematology/BMT and Cellular Therapy Program [address] [place] [address] [place] [address] 02/10/2025 9:00 AM EDT Office Visit PAV CC Hematology/BMT and Cellular Therapy Program [address] [place] [address] Elaina Boss, PA 800 [facility] [address] [place] [address] 02/10/2025 10:30 AM EDT Appointment [facility] Infusion [facility] 1 744 [place] [address] 02/11/2025 2:00 PM EDT Appointment [facility] Infusion [facility] 1 7[address] [place] [address] 02/12/2025 2:00 PM EDT Appointment [facility] Infusion [facility] 1 744 [place] [address] 02/13/2025 2:00 PM EDT Appointment [facility] Infusion [facility] 1 7[address] [place] [address] 02/14/2025 2:00 PM EDT Appointment [facility] Infusion [facility] 1 4 [place] [address] 03/10/2025 8:30 AM EDT Clinical Support P[facility] CC Hematology/BMT and Cellular Therapy Program [address] [place] [address] [place] [address] 03/10/2025 9:00 AM EDT Office Visit PAV CC Hematology/BMT and Cellular Therapy Program [address] [place] [address] [place] [address] Isaura Wynn, OIL EXPLORATION ENGINEER 800 [facility] [address] [place] [address] 03/10/2025 11:20 AM EDT Office Visit Pav CC Head, Neck & Respiratory 800 [facility], 2nd [place] [address] Elsa Razo, OIL EXPLORATION ENGINEER 800 [place] [address] documented as of this encounter Visit Diagnoses [...] as of this encounter Care Teams Motor Driver Relationship Specialty Start Date End Date Zhao Harris MD 1210 [facility] [address] [place] [address] PCP - General 12/03/20 documented as of this encounter
--- OUTSIDE RECORDS SUMMARY | 2025-01-20 08:37 | XMS_ITS | Encounter Summary ---
Author Organization [facility] Address [address] [place] [address] Care Team Providers Care Paramedic Supervisor Name Role Phone Zhao Harris MD Primary Care Provider + [phone] Encounter Details Date Type Department Care Team ([facility] st Contact Info) Description 12/09/2024 Telephone PAV CC Hematology/BMT and Cellular Therapy Program [address] [place] [address] [place] [address] [facility] HEMATOLOGY PROGRAM CLINIC Social History Tobacco [...] drink first t manav in the morning (EYE-TIRE CORD WEAVER) to steady your nerves or to get [...] ([facility] st Contact Info) Description 02/02/2025 11:00 AM EDT Appointment PAV A Interventional Radiology [address] [place] [address] 02/10/2025 8:30 AM EDT Clinical Support P[facility] CC Hematology/BMT and Cellular Therapy Program [address] [address] 02/10/2025 9:00 AM EDT Office Visit PAV Hematology/BMT and Cellular Therapy Program [address] [place] [address] Elaina Boss, ARAM 800 [facility] [address] [place] [address] 02/10/2025 10:30 AM EDT Appointment [facility] Infusion Clinic 1 744 [place] [address] 02/11/2025 2:00 PM EDT Appointment [facility] Infusion [facility] 1 [address] [place] [address] 02/12/2025 2:00 PM EDT Appointment [facility] Infusion [facility] 1 [address] [place] [address] 02/13/2025 2:00 PM EDT Appointment [facility] Infusion [facility] 1 [address] [place] [address] 02/14/2025 2:00 PM EDT Appointment [facility] Infusion [facility] 1 [address] [place] [address] 03/10/2025 8:30 AM EDT Clinical Support PAV Hematology/BMT and Cellular Therapy Program 750 [facility], [address] [place] [address] 03/10/2025 9:00 AM EDT Office Visit PAV CC Hematology/BMT and Cellular Therapy Program [address] [address] Isaura Wynn, CLAM DREDGER 800 [facility] [address] [place] [address] 03/10/2025 11:20 AM EDT Office Visit Pav CC Head, Neck & Respiratory 800 [facility], 2nd [place] [address] Elsa Razo, CLAM DREDGER 800 [place] [phone] documented as of this encounter Visit Diagnoses [...] documented as of this encounter Care Teams Paramedic Supervisor Relationship Specialty Start Date End Date Zhao Harris MD 1210 [facility] [address] [place] [address] PCP - General 12/03/20 documented as of this encounter
--- OUTSIDE RECORDS SUMMARY | 2025-01-20 08:37 | XMS_ITS | Encounter Summary ---
Author Organization [facility] Address [address] [place] [address] Care Team Providers Care Organizational Development Manager Name Role Phone Zhao Harris MD Primary Care Provider [phone] Encounter Details Date Type Department Care Team (Latest Contact Info) Description 01/17/2025 Travel Social History Tobacco Use Types Packs/Day [...] drink first t manav in the morning (EYE-PLASTICS SUPERVISOR) to steady your nerves or to [...] Encounters Date Type Department Care Team ([facility] Contact Info) Description 02/02/2025 11:00 AM EDT Appointment PAV A Interventional Radiology [address] [place] [address] 02/10/2025 8:30 AM EDT Clinical Support PAV CC Hematology/BMT and Cellular Therapy Program [address] [place] [address] [place] [address] 02/10/2025 9:00 AM EDT Office Visit PAV CC Hematology/BMT and Cellular Therapy Program [address] [place] [address] Elaina Boss, PA 800 [facility] [address] [place] [address] 02/10/2025 10:30 AM EDT Appointment [facility] Infusion Clinic 1 744 [place] [address] 02/11/2025 2:00 PM EDT Appointment [facility] Infusion [facility] 1 [address] [place] [address] 02/12/2025 2:00 PM EDT Appointment P[facility] Infusion Clinic 1 [address] [place] [address] 02/13/2025 2:00 PM EDT Appointment [facility] Infusion Clinic 1 [address] [place] [address] 02/14/2025 2:00 PM EDT Appointment [facility] Infusion Clinic 1 4 [place] [address] 03/10/2025 8:30 AM EDT Clinical Support PAV CC Hematology/BMT and Cellular Therapy Program [address] [place] [address] [place] [address] 03/10/2025 9:00 AM EDT Office Visit PAV CC Hematology/BMT and Cellular Therapy Program [address] [place] [address] [place] [address] Isaura Wynn, BIOMEDICAL SCIENTIST 800 [facility] [address] [place] [address] 03/10/2025 11:20 AM EDT Office Visit Pav CC Head, Neck & Respiratory 800 [facility], 2nd [place] [address] Elsa Razo, BIOMEDICAL SCIENTIST 800 [place] [address] documented as of this encounter Visit Diagnoses [...] documented as of this encounter Care Teams Organizational Development Manager Relationship Specialty Start Date End Date Zhao Harris MD 1210 [facility] [address] [place] [phone] PCP - General 12/03/20 documented as of this encounter
--- OUTSIDE RECORDS SUMMARY | 2025-01-20 08:38 | XMS_ITS | Encounter Summary ---
Author Organization [employer] ([place], [place], [place], [place]) Address [address] [place] [address] Care Team Providers Care Roofer Metal Name Role Phone Unavailable Primary Care Provider Unavailabl e Encounter Details Date Type Department Care Team (Late st Contact Info) Description 07/10/2019 Transcribed Document [facility] Family Medicine [address] [place] [address] ProviderBrigida MD [address] [place] [address] Social History Tobacco Use Types Packs/Day [...] - Historical ProviderMD - 07/10/2019 7:17 AM MENTAL HEALTH ORDERLY Pre Procedure Adult Entered On: 07/10/2019 7:21 EST Performed On: 07/10/2019 7:17 EST by RONNY BLISS RN Height and Weight, Clinical Dosing Height Source : Stated Height Entry Format : [facility] Height, Feet : 5 ft(Converted to: 152 cm, 60 Inch) Height, Inches : 7 Inch(Converted to: 0 ft 7 Inch, 17.78 cm) Clinical Height : 170.18 cm Weight Source : Standing scale Weight Entry Format : [facility] Clinical Dosing Weight : 86.36 kg Weight, Pounds : 190 lb Body Surface Area (BSA) : 1.98 m2 Body Mass Index : 29.8 kg/m2 (HI) Coleman Body Weight : 65 kg RONNY BLISS [...] (Last Updated: 04/18/2018 11:37:47 EDT by CLARI PARKER, BRIAN) 10 or more cigarettes (1/2 pack or [...] Days : No Contact With Traveler to [facility] : No Tuberculosis Symptoms : None [...] RONNY BLISS RN - 07/10/2019 7:17 EST [place] Suicide Severity Rating Scale (C-SSRS) CSSRS Past [...] Arrival on Unit : Ambulatory Support Person/Patient Sales Consultant Residential Manager : Yes Support Person/Pt Rep Name : Faviola Support Person/Pt Rep Contact Information : [phone] Want Family/Rep/Phys Notified of Admit : No Emergency Contact #1 : Faviola Brown Emergency Contact #1 Emergency Contact #1 Relationship : Emergency Contact #2 : . Emergency Contact #2 Phone Number : . Emergency Contact #2 Relationship : . Information Obtained From : Patient Primary Language : Polish Preferred Communication Mode : Verbal Communication Barrier [...] : No Benitez Secondary Diagnosis : Yes EBNITEZ Use of Ambulatory Aid : None BENITEZ IV Therapy or IV Access : Yes Eli Gait/Transferring : Normal, bedrest, immobile Benitez Mental Status : Oriented to own ability Benitez Fall Risk Score : 35 BENITEZ Fall Scale Risk Level : 25-45 Medium Risk [place] Fall Interventions : Adequate lighting, Bed in [...]
--- OUTSIDE RECORDS SUMMARY | 2025-01-20 08:38 | XMS_ITS | Encounter Summary ---
Author Organization [facility] Address [address] [place] [address] Care Team Providers Care Auto Radiator Mechanic Name Role Phone Zhao Harris MD Primary Care Provider [phone] Encounter Details Date Type Department Care Team ([facility] st Contact Info) Description 12/12/2024 Orders Only PAV CC Hematology/BMT and Cellular Therapy Program [address] [place] [address] [place] [address] Gricel Gonzalez RN [facility] HEMATOLOGY PROGRAM CLINIC Social History [...] drink first t manav in the morning (EYE-STONEWORKING BELT SANDER) to steady your nerves or to get [...] PAV A Interventional Radiology [address] [place] [address] 02/10/2025 8:30 AM EDT Clinical Support PAV Hematology/BMT and Cellular Therapy Program [address] [address] 02/10/2025 9:00 AM EDT Office Visit PAV Hematology/BMT and Cellular Therapy Program [address] [address] Elaina Boss, ARAM 800 [facility] [address] [place] [address] 02/10/2025 10:30 AM EDT Appointment [facility] Infusion Clinic 1 744 [place] [address] 02/11/2025 2:00 PM EDT Appointment P[facility] Infusion Clinic 1 [address] [place] [address] 02/12/2025 2:00 PM EDT Appointment P[facility] Infusion Clinic 1 [address] [place] [address] 02/13/2025 2:00 PM EDT Appointment [facility] Infusion [facility] 1 [address] [place] [address] 02/14/2025 2:00 PM EDT Appointment [facility] Infusion [facility] 1 [address] [place] [address] 03/10/2025 8:30 AM EDT Clinical Support PAV Hematology/BMT and Cellular Therapy Program 750 [facility] [place] [address] 03/10/2025 9:00 AM EDT Office Visit PAV CC Hematology/BMT and Cellular Therapy Program 750 [facility], [address] [place] [address] Isaura Wynn, AUTOMATIC PATTERN EDGER 800 [facility] [address] [place] [address] 03/10/2025 11:20 AM EDT Office Visit Pav CC Head, Neck & Respiratory 800 [facility], 2nd [place] [address] Elsa Razo, AUTOMATIC PATTERN EDGER 800 [place] [address] documented as of this encounter Visit Diagnoses [...] documented as of this encounter Care Teams Auto Radiator Mechanic Relationship Specialty Start Date End Date Zhao Harris MD [address] [place] [address] PCP - General 12/03/20 documented as of this encounter
--- OUTSIDE RECORDS SUMMARY | 2025-01-20 08:38 | XMS_ITS | Encounter Summary ---
Author Organization [employer] ([place], [place], [place], [place]) Address [address] [place] [address] Care Team Providers Care Kitchen Supervisor Name Role Phone Unavailable Primary Care Provider Unavailabl e Encounter Details Date Type Department Care Team (Late st Contact Info) Description 07/10/2019 Transcribed Document [facility] Family Medicine [address] [place] [address] ProviderBrigida MD [address] [place] [address] Social History Tobacco Use Types [...] Conversion Note - Brigida ProviderMD - 07/10/2019 7:57 AM INSPECTOR RADAR AND ELECTRONICS [facility] OR PACU Summary Primary Physician: SURY SHARMA MD-ORT Finalized Date/Time: 07/10/19 09:18:01 Pt. Name: HUGO AGUILAR JR, D.O.B./Sex: 1955 Male Med Rec #: [id number] Physician: SURY SHARMA MD-ORT Financial #: [id number] Pt. Type: O Room/Bed: Admit/Disch: 07/10/19 05:55:00 - Institution: [facility] PACU Case Times Entry 1 In PACU I 07/10/19 08:26:00 Ready for PACU 07/10/19 09:00:00 Discharge Discharge from PACU 07/10/19 09:00:00 I Last Modified By: Mariah Guerra RN 07/10/19 09:17:59 [facility] OR PACU Case Times Audit 07/10/19 09:17:59 Tire Mold Tester: TERESA Modifier: CARRIEC 1 <*> Ready for PACU Discharge 07/10/19 08:56:00 1 <*> Discharge from PACU I 07/10/19 08:56:00 07/10/19 08:49:40 Tire Mold Tester: TERESA Modifier: CARRIEC <+> 1 Discharge from PACU I Finalized By: Mariah Guerra RN Document Signatures Signed By: Mariah Guerra RN 07/10/19 09:18 Electronically signed by [facility] Conversion Glassine Machine Tender Cerner at 11/06/2022 6:04 PM CDT documented in this encounter Plan of Treatment Not on file documented as of this encounter Visit Diagnoses Not on filedocumented in this encounter
--- OUTSIDE RECORDS SUMMARY | 2025-01-20 08:38 | XMS_ITS | Encounter Summary ---
Author Organization [facility] Address [address] [place] [address] Care Team Providers Care Rice Field Worker Name Role Phone Zhao Harris MD Primary Care Provider [phone] Encounter Details Date Type Department Care Team [...] drink first t manav in the morning (EYE-TURNING AND BEADING MACHINE OPERATOR) to steady your nerves or [...] Upcoming Encounters Date Type Department Care Team ([facility] Contact Info) Description 02/02/2025 11:00 AM EDT Appointment PAV A Interventional Radiology [address] [place] [address] 02/10/2025 8:30 AM EDT Clinical Support PAV CC Hematology/BMT and Cellular Therapy Program [address] [place] [address] [place] [address] 02/10/2025 9:00 AM EDT Office Visit PAV CC Hematology/BMT and Cellular Therapy Program [address] [place] [address] Elaina Boss, PA 800 [facility] [address] [place] [address] 02/10/2025 10:30 AM EDT Appointment P[facility] Infusion Clinic 1 [address] [place] [address] 02/11/2025 2:00 PM EDT Appointment [facility] Infusion Clinic 1 [address] [place] [address] 02/12/2025 2:00 PM EDT Appointment [facility] Infusion [facility] 1 [address] [place] [address] 02/13/2025 2:00 PM EDT Appointment [facility] Infusion [facility] 1 [address] [place] [address] 02/14/2025 2:00 PM EDT Appointment [facility] Infusion [facility] 1 4 [place] [address] 03/10/2025 8:30 AM EDT Clinical Support P[facility] CC Hematology/BMT and Cellular Therapy Program [address] [place] [address] [place] [address] 03/10/2025 9:00 AM EDT Office Visit PAV CC Hematology/BMT and Cellular Therapy Program [address] [place] [address] [address] [place] [address] Isaura Wynn, CRUSHER MACHINE OPERATOR 800 [facility] [address] [place] [address] 03/10/2025 11:20 AM EDT Office Visit Pav CC Head, Neck & Respiratory 800 [facility], 2nd [place] [address] Elsa Razo, CRUSHER MACHINE OPERATOR 800 [place] [address] documented as of this encounter Visit Diagnoses [...] documented as of this encounter Care Teams Rice Field Worker Relationship Specialty Start Date End Date Zhao Harris MD 1210 [facility] [address] [place] [address] PCP - General 12/03/20 documented as of this encounter
--- OUTSIDE RECORDS SUMMARY | 2025-01-20 08:38 | XMS_ITS | Encounter Summary ---
Author Organization [employer] ([place], [place], [place], [place]) Address [address] [place] [address] Care Team Providers Care Director Of Radiology Name Role Phone Unavailable Primary Care Provider Unavailabl e Encounter Details Date Type Department Care Team (Late st Contact Info) Description 07/10/2019 Transcribed Document [facility] Family Medicine [address] [place] [address] ProviderBrigida MD [address] [place] [address] Social History Tobacco Use Types [...] Note - Brigida Vega MD - 07/10/2019 8:16 AM MUNITIONS HANDLER Patient: HUGO AGUILAR JR Age: 63 years [...]
--- OUTSIDE RECORDS SUMMARY | 2025-01-20 08:38 | XMS_ITS | Encounter Summary ---
Author Organization [facility] Address [address] [place] [address] Care Team Providers Care Utility Tractor Operator Name Role Phone Zhao Harris MD Primary Care Provider [phone] Reason for Visit * Reason Comments Med Refill Encounter Details Date Type Department Care Team (Late st Contact Info) Description 06/19/2023 Refill [facility] [address] [place] [phone] Elsa Razo, PROCEDURES RN [address] [place] [address] Hypertension, unspecified type; Coronary artery disease involving [place] heart with angina pectoris, unspecified vessel or [...] Appointment P[facility] A Interventional Radiology [address] [place] [phone] 02/10/2025 8:30 AM EDT Clinical Support P[facility] CC Hematology/BMT and Cellular Therapy Program [address] [place] [address] 02/10/2025 9:00 AM EDT Office Visit [facility] Hematology/BMT and Cellular Therapy Program [address] [place] [address] Elaina Boss, PA 800 [facility] [address] [place] [address] 02/10/2025 10:30 AM EDT Appointment [facility] 1 [address] [place] [address] 02/11/2025 2:00 PM EDT Appointment [facility] 1 [address] [place] [address] 02/12/2025 2:00 PM EDT Appointment [facility] 1 [address] [place] [address] 02/13/2025 2:00 PM EDT Appointment [facility] 1 [address] [place] [address] 02/14/2025 2:00 PM EDT Appointment [facility] 1 [address] [place] [address] 03/10/2025 8:30 AM EDT Clinical Support [facility] Hematology/BMT and Cellular Therapy Program [address] [place] [address] 03/10/2025 9:00 AM EDT Office Visit [facility] Hematology/BMT and Cellular Therapy Program [address] [place] [address] Isaura Wynn, ESTRELLA 800 [facility] [address] [place] [phone] 03/10/2025 11:20 AM EDT Office Visit [facility] Head, Neck & Respiratory 800 [facility], 2nd [place] [address] Elsa Razo, PROCEDURES RN [address] [place] [phone] documented as of this encounter Visit Diagnoses Diagnosis Hypertension, unspecified type Coronary artery disease involving [place] heart with angina pectoris, unspecified vessel or [...] documented as of this encounter Care Teams Utility Tractor Operator Relationship Specialty Start Date End Date Zhao Harris MD [address] [place] [address] PCP - General 12/03/20 documented as of this encounter
--- OUTSIDE RECORDS SUMMARY | 2025-01-20 08:38 | XMS_ITS | Encounter Summary ---
Author Organization [facility] Address [address] [place] [address] Care Team Providers Care Passenger Screener Name Role Phone Zhao Harris MD Primary Care Provider [phone] Encounter Details Date Type Department Care Team [...] Appointment PAV A Interventional Radiology [address] [place] [address] 02/10/2025 8:30 AM EDT Clinical Support [facility] CC Hematology/BMT and Cellular Therapy Program [address] [place] [address] [place] [address] 02/10/2025 9:00 AM EDT Office Visit [facility] CC Hematology/BMT and Cellular Therapy Program [address] [place] [phone] Elaina Boss, PA 800 [facility] [address] [place] [phone] 02/10/2025 10:30 AM EDT Appointment [facility] 1 [address] [place] [address] 02/11/2025 2:00 PM EDT Appointment [facility] 1 [address] [place] [address] 02/12/2025 2:00 PM EDT Appointment [facility] 1 [address] [place] [address] 02/13/2025 2:00 PM EDT Appointment [facility] 1 [address] [place] [address] 02/14/2025 2:00 PM EDT Appointment [facility] 1 4 [place] [address] 03/10/2025 8:30 AM EDT Clinical Support [facility] CC Hematology/BMT and Cellular Therapy Program [address] [place] [address] [place] [address] 03/10/2025 9:00 AM EDT Office Visit [facility] CC Hematology/BMT and Cellular Therapy Program [address] [place] [address] [place] [phone] Isaura Wynn, CORRECTIONAL SERGEANT 800 [facility] [address] [place] [address] 03/10/2025 11:20 AM EDT Office Visit Pav CC Head, Neck & Respiratory 800 [facility], 2nd [place] [address] Elsa Razo, CORRECTIONAL SERGEANT [address] [place] [phone] documented as of this encounter Visit Diagnoses [...] documented as of this encounter Care Teams Passenger Screener Relationship Specialty Start Date End Date Zhao Harris MD 1210 [facility] [address] [place] [phone] PCP - General 12/03/20 documented as of this encounter
--- OUTSIDE RECORDS SUMMARY | 2025-01-20 08:38 | XMS_ITS | Encounter Summary ---
Author Organization [facility] Address [address] [place] [address] Care Team Providers Care Gasoline Plant Operator Name Role Phone Zhao Harris MD Primary Care Provider [phone] Encounter Details Date Type Department Care Team ([facility] st Contact Info) Description 12/16/2024 Orders Only P[facility] CC Hematology/BMT and Cellular Therapy Program [address] [address] Christina Ramos MD 800 [facility] [address]st [place] [address] Myelodysplasia (myelodysplastic syndrome) (CMS/HCC) (Primary Dx) Social [...] first t manav in the morning (EYE-SCHOOL BUS DRIVER/TEACHER ASSISTANT) to steady your nerves or to [...] Appointment PAV A Interventional Radiology [address] [place] [address] 02/10/2025 8:30 AM EDT Clinical Support [facility] CC Hematology/BMT and Cellular Therapy Program [address] [address] 02/10/2025 9:00 AM EDT Office Visit PAV Hematology/BMT and Cellular Therapy Program [address] [address] Elaina Boss, PA 800 [facility] [address] [place] [address] 02/10/2025 10:30 AM EDT Appointment [facility] 1 [address] [place] [address] 02/11/2025 2:00 PM EDT Appointment [facility] 1 [address] [place] [address] 02/12/2025 2:00 PM EDT Appointment [facility] 1 [address] [place] [address] 02/13/2025 2:00 PM EDT Appointment [facility] 1 [address] [place] [address] 02/14/2025 2:00 PM EDT Appointment [facility]fusion [facility] 1 [address] [place] [address] 03/10/2025 8:30 AM EDT Clinical Support P[facility] CC Hematology/BMT and Cellular Therapy Program 750 [facility] [place] [place] [address] 03/10/2025 9:00 AM EDT Office Visit PAV CC Hematology/BMT and Cellular Therapy Program 750 [facility] [place] [address] Isaura Wynn, RN RECOVERY 800 [facility] [address] [place] [address] 03/10/2025 11:20 AM EDT Office Visit Pav CC Head, Neck & Respiratory 800 [facility], 2nd [place] [address] Elsa Razo, RN RECOVERY [address] [place] [address] documented as of this encounter Results * (ABNORMAL) Comprehensive metabolic panel (01/06/2025 8:49 AM EDT) Glucose, Plasma 100(H) 74 - 99 mg/dL 01/06/2025 9:34 AM EDT [facility] BUN, Plasma 8 8 - 23 mg/dL 01/06/2025 9:34 AM EDT [facility] Creatinine, Plasma 0.76 0.70 - 1.20 mg/dL 01/06/2025 9:34 AM EDT [facility] BUN/Creatinine Ratio 11 01/06/2025 9:34 AM EDT [facility] Sodium, Plasma 138 136 - 145 mmol/L 01/06/2025 9:34 AM EDT [facility] Potassium, Plasma 4.3 3.6 - 4.9 mmol/L 01/06/2025 9:34 AM EDT [facility] Chloride, Plasma 109(H) 97 - 107 mmol/L 01/06/2025 9:34 AM EDT [facility] CO2, Plasma 21(L) 22 - 29 mmol/L 01/06/2025 9:34 AM EDT [facility] Anion Gap 8 6 - 16 mmol/L 01/06/2025 9:34 AM EDT [facility] Total Calcium, Plasma 8.8(L) 8.9 - 10.2 mg/dL 01/06/2025 9:34 AM EDT [facility] Total Protein 6.6 6.3 - 7.9 g/dL 01/06/2025 9:34 AM EDT [facility] Albumin, Plasma 3.9 3.5 - 5.2 g/dL 01/06/2025 9:34 AM EDT [facility] AST, Plasma 25 10 - 50 U/L 01/06/2025 9:34 AM EDT [facility] ALT, Plasma 28 10 - 50 U/L 01/06/2025 9:34 AM EDT [facility] Alkaline Phosphatase, Plasma 83 40 - 115 U/L 01/06/2025 9:34 AM EDT [facility] Total Bilirubin, Plasma 0.5 0.2 - 1.1 mg/dL 01/06/2025 9:34 AM EDT [facility] eGFRcr 97.3 mL/min/1.7 3m*2 01/06/2025 9:34 AM EDT [facility] Comment:Reported eGFRcr in m L/min/1.73m2 is based the CKD-EPI 2020 equation that does not use a race coefficient. Blood Venous blood specimen / Unknown Venipuncture / Unknown 01/06/2025 8:49 AM EDT 01/06/2025 9:01 AM EDT us Christina Ramos MD LAB BLOOD ORDERABLES Final Resul t [facility] [address] [place] [address] * (ABNORMAL) CBC and differential (01/06/2025 8:49 AM EDT) WBC Count 0.59(LL) 3.70 - 10.30 10*3/uL LAB HEMATOLOGY METHOD 01/06/2025 11:36 AM EDT [facility] RBC Count 2.95(L) 4.60 - 6.10 10*6/uL LAB HEMATOLOGY METHOD 01/06/2025 11:36 AM EDT [facility] HGB 8.8(L) 13.7 - 17.5 g/dL LAB HEMATOLOGY METHOD 01/06/2025 11:36 AM EDT [facility] HCT 25.3(L) 40.0 - 51.0 % LAB HEMATOLOGY METHOD 01/06/2025 11:36 AM EDT [facility] Platelet Count 75(L) 155 - 369 10*3/uL LAB HEMATOLOGY METHOD 01/06/2025 11:36 AM EDT [facility] MCV 86 79 - 98 fL LAB HEMATOLOGY METHOD 01/06/2025 11:36 AM EDT [facility] MCH 29.8 26.0 - 32.0 pg LAB HEMATOLOGY METHOD 01/06/2025 11:36 AM EDT [facility] MCHC 34.8 30.7 - 35.5 g/dL LAB HEMATOLOGY METHOD 01/06/2025 11:36 AM EDT [facility] RDW 14.6(H) 11.5 - 14.5 % LAB HEMATOLOGY METHOD 01/06/2025 11:36 AM EDT [facility] MPV 10.7 8.8 - 12.5 fL LAB HEMATOLOGY METHOD 01/06/2025 11:36 AM EDT [facility] nRBC 3.4(H) <=0.0 per 100 WBCs LAB HEMATOLOGY METHOD 01/06/2025 11:36 AM EDT [facility] Differential Type Automated LAB HEMATOLOGY METHOD 01/06/2025 11:36 AM EDT [facility] Neutrophils % 5 % LAB HEMATOLOGY METHOD 01/06/2025 11:36 AM EDT [facility] Lymphocytes % 88 % LAB HEMATOLOGY METHOD 01/06/2025 11:36 AM EDT [facility] Monocytes % 7 % LAB HEMATOLOGY METHOD 01/06/2025 11:36 AM EDT [facility] Eosinophils % 0 % LAB HEMATOLOGY METHOD 01/06/2025 11:36 AM EDT [facility] Basophils % 0 % LAB HEMATOLOGY METHOD 01/06/2025 11:36 AM EDT [facility] Immature Granulocytes % 0 % LAB HEMATOLOGY METHOD 01/06/2025 11:36 AM EDT [facility] Neutrophils Absolute 0.03(LL) 1.60 - 6.10 10*3/uL LAB HEMATOLOGY METHOD 01/06/2025 11:36 AM EDT [facility] Lymphocytes Absolute 0.52(L) 1.20 - 3.90 10*3/uL LAB HEMATOLOGY METHOD 01/06/2025 11:36 AM EDT [facility] Monocytes Absolute 0.04(L) 0.30 - 0.90 10*3/uL LAB HEMATOLOGY METHOD 01/06/2025 11:36 AM EDT [facility] Eosinophils Absolute 0.00 0.00 - 0.50 10*3/uL LAB HEMATOLOGY METHOD 01/06/2025 11:36 AM EDT [facility] Basophils Absolute 0.00 0.00 - 0.10 10*3/uL LAB HEMATOLOGY METHOD 01/06/2025 11:36 AM EDT [facility] Immature Granulocytes Absolute 0.00 0.00 - 0.06 10*3/uL LAB HEMATOLOGY METHOD 01/06/2025 11:36 AM EDT [facility] Blood Venous blood specimen / Unknown Venipuncture / Unknown 01/06/2025 8:49 AM EDT 01/06/2025 9:01 AM EDT [facility] - 01/06/2025 11:36 AM EDT Therapeutic decision making should be based on absolute values, rather than percentages. us Christina Ramos MD LAB BLOOD ORDERABLES Final Resul t [facility] [address] [place] [address] * (ABNORMAL) CBC and differential (12/20/2024 9:00 AM EDT) WBC Count 0.59(LL) 3.70 - 10.30 10*3/uL LAB HEMATOLOGY METHOD 12/20/2024 10:25 AM EDT [facility] RBC Count 2.46(L) 4.60 - 6.10 10*6/uL LAB HEMATOLOGY METHOD 12/20/2024 10:25 AM EDT [facility] HGB 7.8(L) 13.7 - 17.5 g/dL LAB HEMATOLOGY METHOD 12/20/2024 10:25 AM EDT [facility] HCT 22.0(L) 40.0 - 51.0 % LAB HEMATOLOGY METHOD 12/20/2024 10:25 AM EDT [facility] Platelet Count 22(L) 155 - 369 10*3/uL LAB HEMATOLOGY METHOD 12/20/2024 10:25 AM EDT [facility] MCV 89 79 - 98 fL LAB HEMATOLOGY METHOD 12/20/2024 10:25 AM EDT [facility] MCH 31.7 26.0 - 32.0 pg LAB HEMATOLOGY METHOD 12/20/2024 10:25 AM EDT [facility] MCHC 35.5 30.7 - 35.5 g/dL LAB HEMATOLOGY METHOD 12/20/2024 10:25 AM EDT [facility] RDW 16.0(H) 11.5 - 14.5 % LAB HEMATOLOGY METHOD 12/20/2024 10:25 AM EDT [facility] MPV 11.3 8.8 - 12.5 fL LAB HEMATOLOGY METHOD 12/20/2024 10:25 AM EDT [facility] nRBC 0.0 <=0.0 per 100 WBCs LAB HEMATOLOGY METHOD 12/20/2024 10:25 AM EDT [facility] Differential Type Automated LAB HEMATOLOGY METHOD 12/20/2024 10:25 AM EDT [facility] Neutrophils % 5 % LAB HEMATOLOGY METHOD 12/20/2024 10:25 AM EDT [facility] Lymphocytes % 92 % LAB HEMATOLOGY METHOD 12/20/2024 10:25 AM EDT [facility] Monocytes % 3 % LAB HEMATOLOGY METHOD 12/20/2024 10:25 AM EDT [facility] Eosinophils % 0 % LAB HEMATOLOGY METHOD 12/20/2024 10:25 AM EDT [facility] Basophils % 0 % LAB HEMATOLOGY METHOD 12/20/2024 10:25 AM EDT [facility] Immature Granulocytes % 0 % LAB HEMATOLOGY METHOD 12/20/2024 10:25 AM EDT [facility] Neutrophils Absolute 0.03(LL) 1.60 - 6.10 10*3/uL LAB HEMATOLOGY METHOD 12/20/2024 10:25 AM EDT [facility] Lymphocytes Absolute 0.54(L) 1.20 - 3.90 10*3/uL LAB HEMATOLOGY METHOD 12/20/2024 10:25 AM EDT [facility] Monocytes Absolute 0.02(L) 0.30 - 0.90 10*3/uL LAB HEMATOLOGY METHOD 12/20/2024 10:25 AM EDT [facility] Eosinophils Absolute 0.00 0.00 - 0.50 10*3/uL LAB HEMATOLOGY METHOD 12/20/2024 10:25 AM EDT [facility] Basophils Absolute 0.00 0.00 - 0.10 10*3/uL LAB HEMATOLOGY METHOD 12/20/2024 10:25 AM EDT [facility] Immature Granulocytes Absolute 0.00 0.00 - 0.06 10*3/uL LAB HEMATOLOGY METHOD 12/20/2024 10:25 AM EDT [facility] Blood Blood sample taken from central line / Unknown (Central Line) Existing Catheter / Unknown 12/20/2024 9:00 AM EDT 12/20/2024 9:13 AM EDT Narrative [facility] - 12/20/2024 10:25 AM EDT Therapeutic decision making should be based on absolute values, rather than percentages. us Christina Ramos MD LAB BLOOD ORDERABLES Final Resul t [facility] [address] [place] [address] * (ABNORMAL) CBC and differential (12/18/2024 9:14 AM EDT) WBC Count 0.51(LL) 3.70 - 10.30 10*3/uL LAB HEMATOLOGY METHOD 12/18/2024 10:49 AM EDT [facility] RBC Count 2.50(L) 4.60 - 6.10 10*6/uL LAB HEMATOLOGY METHOD 12/18/2024 10:49 AM EDT [facility] HGB 8.1(L) 13.7 - 17.5 g/dL LAB HEMATOLOGY METHOD 12/18/2024 10:49 AM EDT [facility] HCT 21.9(L) 40.0 - 51.0 % LAB HEMATOLOGY METHOD 12/18/2024 10:49 AM EDT [facility] Platelet Count 6(LL) 155 - 369 10*3/uL LAB HEMATOLOGY METHOD 12/18/2024 10:49 AM EDT [facility] MCV 88 79 - 98 fL LAB HEMATOLOGY METHOD 12/18/2024 10:49 AM EDT [facility] MCH 32.4(H) 26.0 - 32.0 pg LAB HEMATOLOGY METHOD 12/18/2024 10:49 AM EDT [facility] MCHC 37.0(H) 30.7 - 35.5 g/dL LAB HEMATOLOGY METHOD 12/18/2024 10:49 AM EDT [facility] RDW 16.7(H) 11.5 - 14.5 % LAB HEMATOLOGY METHOD 12/18/2024 10:49 AM EDT [facility] MPV LAB HEMATOLOGY METHOD 12/18/2024 10:49 AM EDT [facility] Comment:Not Measured nRBC 0.0 <=0.0 per 100 WBCs LAB HEMATOLOGY METHOD 12/18/2024 10:49 AM EDT [facility] Differential Type Automated LAB HEMATOLOGY METHOD 12/18/2024 10:49 AM EDT [facility] Neutrophils % 6 % LAB HEMATOLOGY METHOD 12/18/2024 10:49 AM EDT [facility] Lymphocytes % 90 % LAB HEMATOLOGY METHOD 12/18/2024 10:49 AM EDT [facility] Monocytes % 4 % LAB HEMATOLOGY METHOD 12/18/2024 10:49 AM EDT [facility] Eosinophils % 0 % LAB HEMATOLOGY METHOD 12/18/2024 10:49 AM EDT [facility] Basophils % 0 % LAB HEMATOLOGY METHOD 12/18/2024 10:49 AM EDT [facility] Immature Granulocytes % 0 % LAB HEMATOLOGY METHOD 12/18/2024 10:49 AM EDT [facility] Neutrophils Absolute 0.03(LL) 1.60 - 6.10 10*3/uL LAB HEMATOLOGY METHOD 12/18/2024 10:49 AM EDT [facility] Lymphocytes Absolute 0.46(L) 1.20 - 3.90 10*3/uL LAB HEMATOLOGY METHOD 12/18/2024 10:49 AM EDT [facility] Monocytes Absolute 0.02(L) 0.30 - 0.90 10*3/uL LAB HEMATOLOGY METHOD 12/18/2024 10:49 AM EDT [facility] Eosinophils Absolute 0.00 0.00 - 0.50 10*3/uL LAB HEMATOLOGY METHOD 12/18/2024 10:49 AM EDT [facility] Basophils Absolute 0.00 0.00 - 0.10 10*3/uL LAB HEMATOLOGY METHOD 12/18/2024 10:49 AM EDT [facility] Immature Granulocytes Absolute 0.00 0.00 - 0.06 10*3/uL LAB HEMATOLOGY METHOD 12/18/2024 10:49 AM EDT [facility] Blood Blood sample taken from central line / Unknown Venipuncture / Unknown 12/18/2024 9:14 AM EDT 12/18/2024 9:20 AM EDT Narrative [facility] - 12/18/2024 10:49 AM EDT Therapeutic decision making should be based on absolute values, rather than percentages. us Christina Ramos MD LAB BLOOD ORDERABLES Final Resul t [facility] [address] [place] [address] documented in this encounter Visit Diagnoses Diagnosis [...] documented as of this encounter Care Teams Gasoline Plant Operator Relationship Specialty Start Date End Date Zhao Harris MD [address] [place] [address] PCP - General 12/03/20 documented as of this encounter
--- OUTSIDE RECORDS SUMMARY | 2025-01-20 08:38 | XMS_ITS | Encounter Summary ---
Author Organization [facility] Address [address] [place] [address] Care Team Providers Care Publication Specialist Name Role Phone Zhao Harris MD Primary Care Provider [phone] Encounter Details Date Type Department Care Team ([facility] st Contact Info) Description 01/12/2025 Telephone [facility] CC Hematology/BMT and Cellular Therapy Program [address] [address] Virgen Vargas MD 800 [facility] [address] [place] [address] Social History Tobacco Use Types Packs/Day Years [...] first t manav in the morning (EYE-HAND GRINDER) to steady your nerves or to get [...] encounter Miscellaneous Notes * Telephone Encounter - Adam Conway, RN - 01/12/2025 4:10 PM EDT made aware. * Telephone Encounter - Misty Patel - 01/12/2025 3:[address] Monae is calling to discuss the referral sent to his facility from our provider. Wanting tospeak to Dr. Vargas Callback number: [phone] Personal number documented in this encounter Plan of Treatment Upcoming Encounters Date Type Department Care Team ([facility] st Contact Info) Description 02/02/2025 11:00 AM EDT Appointment P[facility] A Interventional Radiology [address] [place] [address] 02/10/2025 8:30 AM EDT Clinical Support [facility] CC Hematology/BMT and Cellular Therapy Program [address] [place] [address] 02/10/2025 9:00 AM EDT Office Visit PAV Hematology/BMT and Cellular Therapy Program [address] [place] [address] Elaina Boss PA 800 [facility] [address] [place] [phone] 02/10/2025 10:30 AM EDT Appointment [facility] 1 [address] [place] [address] 02/11/2025 2:00 PM EDT Appointment [facility] 1 [address] [place] [address] 02/12/2025 2:00 PM EDT Appointment [facility] 1 [address] [place] [address] 02/13/2025 2:00 PM EDT Appointment [facility] 1 [address] [place] [address] 02/14/2025 2:00 PM EDT Appointment [facility] 1 [address] [place] [address] 03/10/2025 8:30 AM EDT Clinical Support [facility] CC Hematology/BMT and Cellular Therapy Program [address] [address] 03/10/2025 9:00 AM EDT Office Visit [facility] CC Hematology/BMT and Cellular Therapy Program [address] [address] Isaura Wynn, CHOCOLATE COATER 800 [facility] [address] [place] [phone] 03/10/2025 11:20 AM EDT Office Visit Pav CC Head, Neck & Respiratory 800 [facility], [address]nd [place] [address] Elsa Razo, CHOCOLATE COATER [address] [place] [phone] documented as of this encounter Visit Diagnoses [...] documented as of this encounter Care Teams Publication Specialist Relationship Specialty Start Date End Date Zhao Harris MD [address] [place] [address] PCP - General 12/03/20 documented as of this encounter
--- OUTSIDE RECORDS SUMMARY | 2025-01-20 08:38 | XMS_ITS | Encounter Summary ---
Author Organization [facility] Address [address] [place] [address] Care Team Providers Care Land Acquisition Manager Name Role Phone Zhao Harris MD Primary Care Provider [phone] Encounter Details Date Type Department Care Team [...] drink first t manav in the morning (EYE-SEROLOGY TECHNICIAN) to steady your nerves or to [...] Encounters Date Type Department Care Team ([facility] Contact Info) Description 02/02/2025 11:00 AM EDT Appointment P[facility] A Interventional Radiology [address] [place] [address] 02/10/2025 8:30 AM EDT Clinical Support [facility] CC Hematology/BMT and Cellular Therapy Program [address] [place] [address] [place] [address] 02/10/2025 9:00 AM EDT Office Visit [facility] CC Hematology/BMT and Cellular Therapy Program [address] [place] [phone] Elaina Boss, PA 800 [facility] [address] [place] [phone] 02/10/2025 10:30 AM EDT Appointment [facility] 1 [address] [place] [address] 02/11/2025 2:00 PM EDT Appointment [facility] 1 [address] [place] [address] 02/12/2025 2:00 PM EDT Appointment [facility] 1 [address] [place] [address] 02/13/2025 2:00 PM EDT Appointment [facility] 1 [address] [place] [address] 02/14/2025 2:00 PM EDT Appointment [facility] 1 [address] [place] [address] 03/10/2025 8:30 AM EDT Clinical Support [facility] Hematology/BMT and Cellular Therapy Program [address] [place] [address] [place] [address] 03/10/2025 9:00 AM EDT Office Visit [facility] CC Hematology/BMT and Cellular Therapy Program [address] [place] [address] [place] [address] Isaura Wynn, RESEARCH PROGRAM MANAGER 800 [facility] [address] [place] [address] 03/10/2025 11:20 AM EDT Office Visit Pav CC Head, Neck & Respiratory 800 [facility], [address]nd [place] [address] Elsa Razo, RESEARCH PROGRAM MANAGER [address] [place] [phone] documented as of this encounter Visit Diagnoses [...] documented as of this encounter Care Teams Land Acquisition Manager Relationship Specialty Start Date End Date Zhao Harris MD 1210 [facility] [address] [place] [phone] PCP - General 12/03/20 documented as of this encounter
--- OUTSIDE RECORDS SUMMARY | 2025-01-20 08:38 | XMS_ITS | Encounter Summary ---
Author Organization [facility] Address [address] 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) Virgen Vargas MD [address] [address] Phone: tel:[phone] fax:[phone] [facility] Multidisciplinary Oncology Clinic [address] [place] [address] Phone: tel: fax: Referral ID Status Reason Start Date Expiration Date V isits Requested Visits Authorized [id number] Closed Specialty Services Required 12/11/2024 06/12/2026 1 1 Scheduling Instructions AML, evaluation for clinical trials * Consultation (Routine) - Closed Specialty Diagnoses / Procedures Referred By Justice mcgee Referred To Contact Medical Oncology Diagnoses 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) Virgen Vargas MD [address] [address] Phone: tel: fax: Referral ID Status Reason Start Date Expiration Date V isits Requested Visits Authorized [id number] Closed Specialty Services Required 12/11/2024 06/12/2026 1 1 Scheduling Instructions AML evaluation for clinical trials Encounter Details Date Type Department Care Team ([facility] Contact Info) Description 12/11/2024 Orders Only PAV CC Hematology/BMT and Cellular Therapy Program 750 [facility], [address] [place] [address] Shahla Mejia RN [facility] AMB SERV ADMIN Acute myeloid leukemia not [...] drink first t manav in the morning (EYE-FUR GLAZER) to steady your nerves or to get [...] Upcoming Encounters Date Type Department Care Team ([facility] Contact Info) Description 02/02/2025 11:00 AM EDT Appointment PAV A Interventional Radiology [address] [place] [address] 02/10/2025 8:30 AM EDT Clinical Support PAV Hematology/BMT and Cellular Therapy Program [address] [address] 02/10/2025 9:00 AM EDT Office Visit PAV Hematology/BMT and Cellular Therapy Program [address] [address] Elaina Boss, PA 800 [facility] [address] [place] [address] 02/10/2025 10:30 AM EDT Appointment [facility]fusion [facility] 1 [address] [place] [address] 02/11/2025 2:00 PM EDT Appointment [facility] 1 [address] [place] [address] 02/12/2025 2:00 PM EDT Appointment [facility] 1 [address] [place] [address] 02/13/2025 2:00 PM EDT Appointment [facility] 1 [address] [place] [address] 02/14/2025 2:00 PM EDT Appointment [facility] 1 [address] [place] [address] 03/10/2025 8:30 AM EDT Clinical Support PAV Hematology/BMT and Cellular Therapy Program [address] [address] 03/10/2025 9:00 AM EDT Office Visit PAV Hematology/BMT and Cellular Therapy Program [address] [address] Isaura Wynn, YOUTH AGENT 800 [facility] [address] [place] [phone] 03/10/2025 11:20 AM EDT Office Visit Pav CC Head, Neck & Respiratory 800 [facility], 2nd [place] [address] Elsa Razo, YOUTH AGENT [address] [place] [address] Scheduled Referrals Name Type Priority Associated Diagnoses [...] documented as of this encounter Care Teams Bookmobile Librarian Relationship Specialty Start Date End Date Zhao Harris MD [address] [place] [phone] PCP - General 12/03/20 documented as of this encounter
--- OUTSIDE RECORDS SUMMARY | 2025-01-20 08:38 | XMS_ITS | Encounter Summary ---
Author Organization [employer] ([place], [place], [place], [place]) Address [address] [place] [address] Care Team Providers Care Motorboat Mechanic Inboard Name Role Phone Unavailable Primary Care Provider Unavailabl e Encounter Details Date Type Department Care Team (Late st Contact Info) Description 07/10/2019 Transcribed Document [facility] Family Medicine [address] [place] [address] ProviderBrigida MD [address] [place] [address] Social History Tobacco Use Types [...] Note - Brigida Vega MD - 07/10/2019 9:20 [place] [address] HUGO AGUILAR JR :1955 Visit Time:07/10/2019 What to do next Your Diagnosis Chondromalacia, right knee, Chondromalacia, right knee Instructions From Your Care Team Weight bearing as tolerated, use cane or crutches if needed. Keep dressing clean and dry for at least 2 days. Resume all home medications. Usual diet as tolerated. [place] 10/325mg 1 tablet every 6 hours as needed for pain- next dose due @ 3:30pm today 07/10/19. Follow-Up Appointments Follow Up with SURY SHARMA MD-ORT When 07/21/2019 02:00 PM EST Where: [address] [facility] 2ND [place] [address]- Medications What How Much When Instructions Next [...] activities are safe for you. ??? Take dyjc-lio-brzfsug and prescription medicines only as told by [...] 12/28/2017 Document Revised: 03/07/2018 Document Reviewed: 12/28/2017 ElseIntematix Interactive Patient Education ?? 2019 [employer] Inc. General Anesthesia, Adult, Care After This [...] activities are safe for you. ??? Take vlkl-rbi-bohqril and prescription medicines only as told by [...] 10/15/2001 Document Revised: 02/22/2018 Document Reviewed: 02/22/2018 [employer] Interactive Patient Education ?? 2019 [employer] Inc. Knee Arthroscopy, Care After Refer to [...] activities are safe for you. ??? Perform ycuaw-yo-pcycvx exercises only as directed by your health [...] 01/26/2006 Document Revised: 12/08/2016 Document Reviewed: 07/05/2015 [employer] Interactive Patient Education ?? 2018 [employer]. acetaminophen and hydrocodone (a SEET a MIN oh fen and laurie droe KOE done) Hycet, Lorcet, [place], Verdrocet, Vicodin, Xodol, Zamicet What is the [...] may report side effects to FDA at 1-808-CHI-6764. What other drugs will affect acetaminophen and [...] affect acetaminophen and hydrocodone, including prescription and teft-daa-ycecqmm medicines, vitamins, and herbal products. Not all [...] to ensure that the information provided by [employer]. ('[employer]') is accurate, up-to-date, and complete, but no guarantee is made to that effect. Drug information contained herein may be time sensitive. [employer] information has been compiled for use by healthcare practitioners and consumers in the [place] and therefore [employer] does not warrant that uses outside of the [place] are appropriate, unless specifically indicated otherwise. [employer] drug information does not endorse drugs, diagnose patients or recommend therapy. [employer] drug information is an informational resource designed [...] effective or appropriate for any given patient. [facility] does not assume any responsibility for any aspect of healthcare administered with the aid of information [facility] provides. The information contained herein is not intended to cover all possible uses, directions, precautions, warnings, drug interactions, allergic reactions, or adverse effects. If you have questions about the drugs you are taking, check with your doctor, nurse or pharmacist. Copyright 5019-1296 [employer]. Version: 15.02. Revision Date: 05/27/2018. Emergency Awareness [...] Assistance with quitting is available by contacting 0-725-YTFE-NOW. This is a free resource providing counseling, [...] Laboratory or Other Results This Visit Patient Name:JEFF MALHOTRA HUGO Angelito I have received this information and was given the opportunity to ask questions. Patient/Chorus Master Name: Patient/Chorus Master Signature: Relationship to Patient: Clinician/Hospital Chorus Master Signature: Date: documented in this encounter Plan of Treatment Not on file documented as of this encounter Visit Diagnoses Not on filedocumented in this encounter
--- OUTSIDE RECORDS SUMMARY | 2025-01-20 08:38 | XMS_ITS | Encounter Summary ---
Author Organization [employer] ([place], [place], [place], [place]) Address [address] [place] [address] Care Team Providers Care Volunteer Specialist Name Role Phone Unavailable Primary Care Provider Unavailabl e Encounter Details Date Type Department Care Team (Late st Contact Info) Description 07/10/2019 Transcribed Document [facility] Family Medicine [address] [place] [address] ProviderBrigida MD [address] [place] [address] Social History Tobacco Use Types [...] - Brigida ProviderMD - 07/10/2019 7:57 AM PARCEL CONTRACTOR [facility] Main OR PostOp Summary Primary Physician: SURY SHARMA MD-ORT Finalized Date/Time: 07/10/19 10:03:33 Pt. Name: HUGO AGUILAR JR, D.O.B./Sex: 1955 Male Med Rec #: [id number] Physician: SURY SHARMA MD-ORT Financial #: [id number] Pt. Type: O Room/Bed: Admit/Disch: 07/10/19 05:55:00 - Institution: [facility] Main OR PostOp Case Times Entry 1 In PACU II 07/10/19 09:10:00 Ready for PACU II 07/10/19 10:00:00 Discharge Discharge from PACU 07/10/19 10:00:00 II Last Modified By: Laquita Romero RN 07/10/19 10:03:30 [facility] Main OR PostOp Case Times Audit 07/10/19 10:03:30 Quill Skinner: [id number] Modifier: [id number] <+> 1 Ready for PACU II Discharge <+> 1 Discharge from PACU II Finalized By: Laquita Romero RN Document Signatures Signed By: Laquita Romero RN 07/10/19 10:03 Electronically signed by Katlin Maldonado Conversion Mechanical Manufacturing Technician Cerner at 11/06/2022 6:00 PM CDT documented in this encounter Plan of Treatment Not on file documented as of this encounter Visit Diagnoses Not on filedocumented in this encounter
--- OUTSIDE RECORDS SUMMARY | 2025-01-20 08:38 | XMS_ITS | Encounter Summary ---
Author Organization [employer] ([place], [place], [place], [place]) Address [address] [place] [address] Care Team Providers Care Supervisor Reactor Fueling Name Role Phone Unavailable Primary Care Provider Unavailabl e Encounter Details Date Type Department Care Team (Late st Contact Info) Description 07/10/2019 Transcribed Document [facility] Family Medicine [address] [place] [address] ProviderBrigida MD [address] [place] [address] Social History Tobacco Use Types [...] - Brigida ProviderMD - 07/10/2019 7:57 AM FLOTATION OPERATOR [facility] Main OR IntraOp Summary Primary Physician: SURY SHARMA MD-ORT Finalized Date/Time: 07/10/19 08:31:14 Pt. Name: HUGO AGUILAR JR, D.O.B./Sex: 1955 Male Med Rec #: [id number] Physician: SURY SHARMA MD-ORT Financial #: [id number] Pt. Type: O Room/Bed: Admit/Disch: 07/10/19 05:55:00 - Institution: [facility] IntraOp Case Attendance Entry 1 Entry 2 Entry 3 Case Attendee SURY SHARMA, TRAVIS PUTNAM, ESTRELLA, Kenrick Guadalupe, FLOTATION OPERATOR/PROCESSING ASSISTANT MEAGANORGenia FINISHING FRAME RUNNER-ANS Role Performed Surgeon/Proceduralist, FINISHING FRAME RUNNER/Nurse Financial Institution Treasurer Beater Tender, First First Time In 07/10/19 07:38:00 07/10/19 07:38:00 07/10/19 07:38:00 Time Out 07/10/19 08:26:00 07/10/19 08:26:00 07/10/19 08:26:00 Procedure Knee Arthroscopy Knee Arthroscopy Knee Arthroscopy Other Attendee Superficial Wound Closed By: Last Modified By: Martha Goldberg RN Dobson, Melissa, RN Dobson, Melissa, RN 07/10/19 08:31:02 07/10/19 08:31:02 07/10/19 08:31:02 Entry 4 Entry 5 Case Attendee WILMER HECTOR Melissa, RN Role Performed Scrub, First Juvenile Correctional Officer, First Time In 07/10/19 07:38:00 07/10/19 07:38:00 Time Out 07/10/19 08:26:00 07/10/19 08:26:00 Procedure Knee Arthroscopy Knee Arthroscopy Other Attendee Superficial Wound Closed By: Last Modified By: Martha Goldberg RN Dobson, Melissa, RN 07/10/19 08:31:02 07/10/19 08:31:02 S[facility] IntraOp Case Attendance Audit 07/10/19 08:31:02 Grating Machine Operator: [id number] Modifier: [id number] <+> Time Out 1 <*> Procedure Knee Arthroscopy 2 <+> Time Out 2 <*> Procedure Knee Arthroscopy 3 <+> Time Out 3 <*> Procedure Knee Arthroscopy 4 <+> Time Out 4 <*> Procedure Knee Arthroscopy 5 <+> Time Out 5 <*> Procedure Knee Arthroscopy 07/10/19 08:12:16 Grating Machine Operator: [id number] Modifier: [id number] <+> 1 Time In <+> 1 Procedure [...] [facility] IntraOp Case Times Audit 07/10/19 08:30:17 Grating Machine Operator: [id number] Modifier: [id number] <+> 1 Out Room Time <+> 1 [...] S[facility] IntraOp Counts Final Audit 07/10/19 08:29:56 Grating Machine Operator: [id number] Modifier: [id number] 1 <*> Procedure Knee Arthroscopy S[facility] IntraOp Delays Entry 1 Delay Reason Other Duration 8 Minute(s) Last Modified By: Martha Goldberg RN 07/10/19 08:06:57 S[facility] IntraOp Departure from OR Entry 1 Integumentary Assessment Integumentary WDL Assessment WDL Transfer/Handoff Transfer to PACU Phase I Handoff Method Bedside/Face to face Post-op Transport Stretcher/Gurney Via Patient Transport Martha Goldberg RN, Accompanied by TRAVIS PUTNAM, CRUST SORTER, FINISHING FRAME RUNNER-ANS Last Modified By: Martha Goldberg RN 07/10/19 08:06:58 SJE IntraOp Dressing and Packing Entry 1 Type Dressing Location RIGHT KNEE Wound Dressing Item 4x4's, Joseph, Kerlix/Maninder Applied By Kenrick Guadalupe, FLOTATION OPERATOR/PROCESSING ASSISTANT Last Modified By: Martha Goldberg RN 07/10/19 [...] RN 07/10/19 08:07:26 SJE IntraOp General Case Overedge Sewer 1 Case Information OR OR 05 SJE Case Level 1 Room Verified Yes Wound Class I - Clean Specialty SN Orthopedic Anesthesia Type General ASA Class 3 Diagnosis Preop Diagnosis RIGHT KNEE PAIN Postop Same As Preop Yes Postop Diagnosis RIGHT KNEE PAIN Last Modified By: Martha Goldberg RN 07/10/19 08:16:03 S[facility] IntraOp General Case Data Audit 07/10/19 08:16:03 Grating Machine Operator: [id number] Modifier: [id number] <+> 1 ASA Class <+> 1 Anesthesia [...] SJE IntraOp Intraoperative Equipment Audit 07/10/19 08:15:09 Grating Machine Operator: [id number] Modifier: [id number] 1 <*> Photo Yes 1 <*> Video [...] 20ml vial Marcaine 0.5% 30ml vial - [id number] - [id number] Combo Med List Time Administered 07/10/19 07:57:00 07/10/19 07:57:00 Route of LOCAL LOCAL Administration Dose Dose 25 20 Unit of Measure ml ml Volume Administered By Kenrick Guadalupe, FLOTATION OPERATOR/PROCESSING ASSISTANT Kenrick Guadalupe CST/FREDY Procedure Irrigation Irrigant Volume [...] Positioned By Martha Goldberg RN, TRAVIS PUTNAM, CRUST SORTER, FINISHING FRAME RUNNER-ANS Position Verified Positioning Yes Verified by Anesthesia [...] Intra Op Sign Out Audit 07/10/19 08:30:31 Grating Machine Operator: [id number] Modifier: [id number] <+> 1 RN Sign Out Signature Date/Time [...] SJE IntraOp Surgical Procedures Audit 07/10/19 08:30:36 Grating Machine Operator: [id number] Modifier: [id number] <+> 1 Stop 07/10/19 08:16:57 Grating Machine Operator: [id number] Modifier: [id number] 1 <*> Procedure Knee Arthroscopy SJE IntraOp Temp Regulation Devices Entry 1 Temp Regulation Temperature Warm blankets Regulation Device Temperature Upper body Regulation Site Temperature TRAVIS PUTNAM APRN, Regulation Device FINISHING FRAME RUNNER-ANS Applied by Last Modified By: Martha Goldberg [...] SJE IntraOp Time Out Audit 07/10/19 08:31:00 Grating Machine Operator: [id number] Modifier: [id number] 1 <*> Beta Jaime Administered N/A 1 <*> Procedure to be Performed Knee Arthroscopy Case Comments <None> Finalized By: Martha Goldberg RN Document Signatures Signed By: Martha Goldberg RN 07/10/19 08:31 Electronically signed by [facility] Conversion Director Targeted Marketing Cerner at 11/06/2022 5:47 PM CDT documented in this encounter Plan of Treatment Not on file documented as of this encounter Visit Diagnoses Not on filedocumented in this encounter
--- OUTSIDE RECORDS SUMMARY | 2025-01-20 08:38 | XMS_ITS | Encounter Summary ---
Author Organization [employer] ([place], [place], [place], [place]) Address [address] [place] [address] Care Team Providers Care Net Developer With Wcf Name Role Phone Unavailable Primary Care Provider Unavailabl e Encounter Details Date Type Department Care Team (Late st Contact Info) Description 07/10/2019 Transcribed Document [facility] Family Medicine [address] [place] [address] ProviderBrigida MD [address] [place] [address] Social History Tobacco Use Types [...] Brigida Vega MD - 07/10/2019 9:18 AM ANALYTICS INTERN Patient Education Materials Follows: Local Anesthesia, Care [...] activities are safe for you. ??? Take zwng-naj-kgxijhj and prescription medicines only as told by [...] 12/28/2017 Document Revised: 03/07/2018 Document Reviewed: 12/28/2017 In[employer] Interactive Patient Education ? 2019 [employer] Inc. General Anesthesia, Adult, Care After This [...] activities are safe for you. ??? Take czpr-dzd-dmzqdgi and prescription medicines only as told by [...] 10/15/2001 Document Revised: 02/22/2018 Document Reviewed: 02/22/2018 [employer] Interactive Patient Education ? 2019 [employer]. Knee Arthroscopy, Care After Refer to [...] activities are safe for you. ??? Perform tzvlr-du-hlfcyh exercises only as directed by your health [...] 01/26/2006 Document Revised: 12/08/2016 Document Reviewed: 07/05/2015 [employer] Interactive Patient Education ? 2018 [employer] documented in this encounter Plan of Treatment Not on file documented as of this encounter Visit Diagnoses Not on filedocumented in this encounter
--- OUTSIDE RECORDS SUMMARY | 2025-01-20 08:38 | XMS_ITS | Encounter Summary ---
Author Organization [facility] Address [address] [place] [address] Care Team Providers Care President Finance Company Name Role Phone Zhao Harris MD Primary Care Provider [phone] Encounter Details Date Type Department Care Team [...] drink first t manav in the morning (EYE-BOX TOE STITCHER) to steady your nerves or to get [...] [facility] Contact Info) Description 02/02/2025 11:00 AM EDT Appointment P[facility] A Interventional Radiology [address] [place] [address] 02/10/2025 8:30 AM EDT Clinical Support PAV CC Hematology/BMT and Cellular Therapy Program [address] [place] [address] [place] [address] 02/10/2025 9:00 AM EDT Office Visit P[facility] CC Hematology/BMT and Cellular Therapy Program [address] [place] [address] Elaina Boss, [place] 800 [facility] [address] [place] [phone] 02/10/2025 10:30 AM EDT Appointment [facility] Infusion [facility] 1 [address] [place] [address] 02/11/2025 2:00 PM EDT Appointment [facility] Infusion [facility] 1 [address] [place] [address] 02/12/2025 2:00 PM EDT Appointment [facility]fusion [facility] 1 [address] [place] [address] 02/13/2025 2:00 PM EDT Appointment [facility]fusion [facility] 1 [address] [place] [address] 02/14/2025 2:00 PM EDT Appointment [facility] Infusion [facility] 1 [address] [place] [address] 03/10/2025 8:30 AM EDT Clinical Support P[facility] CC Hematology/BMT and Cellular Therapy Program [address] [place] [address] [place] [address] 03/10/2025 9:00 AM EDT Office Visit [facility] CC Hematology/BMT and Cellular Therapy Program [address] [place] [address] [place] [address] Isaura Wynn, ETHYLENE COMPRESSOR OPERATOR 800 [facility] [address] [place] [address] 03/10/2025 11:20 AM EDT Office Visit Pav CC Head, Neck & Respiratory 800 [facility], 2nd [place] [address] Elsa Razo, ETHYLENE COMPRESSOR OPERATOR [address] [place] [phone] documented as of this encounter Visit Diagnoses [...] documented as of this encounter Care Teams President Finance Company Relationship Specialty Start Date End Date Zhao Harris MD [address] [facility] [address] [place] [phone] PCP - General 12/03/20 documented as of this encounter
--- OUTSIDE RECORDS SUMMARY | 2025-01-20 08:38 | XMS_ITS | Encounter Summary ---
Author Organization [facility] Address [address] [place] [address] Care Team Providers Care Infrastructure Architect Name Role Phone Zhao Harris MD Primary Care Provider [phone] Encounter Details Date Type Department Care Team [...] first t manav in the morning (EYE-CLOTH WIRE WEAVER) to steady your nerves or to [...] [facility] Contact Info) Description 02/02/2025 11:00 AM EDT Appointment PAV A Interventional Radiology [address] [place] [address] 02/10/2025 8:30 AM EDT Clinical Support P[facility] CC Hematology/BMT and Cellular Therapy Program [address] [place] [address] [place] [address] 02/10/2025 9:00 AM EDT Office Visit [facility] CC Hematology/BMT and Cellular Therapy Program [address] [place] [address] Elaina Boss, PA 800 [facility] [address] [place] [address] 02/10/2025 10:30 AM EDT Appointment [facility] 1 [address] [place] [address] 02/11/2025 2:00 PM EDT Appointment [facility] 1 [address] [place] [address] 02/12/2025 2:00 PM EDT Appointment [facility] 1 [address] [place] [address] 02/13/2025 2:00 PM EDT Appointment [facility] 1 [address] [place] [address] 02/14/2025 2:00 PM EDT Appointment [facility] 1 [address] [place] [address] 03/10/2025 8:30 AM EDT Clinical Support [facility] CC Hematology/BMT and Cellular Therapy Program [address] [place] [address] [place] [address] 03/10/2025 9:00 AM EDT Office Visit P[facility] CC Hematology/BMT and Cellular Therapy Program [address] [place] [address] [place] [address] Isaura Wynn, VOUCHER CLERK 800 [facility] [address] [place] [address] 03/10/2025 11:20 AM EDT Office Visit Pav CC Head, Neck & Respiratory 800 [facility], 2nd [place] [address] Elsa Razo, VOUCHER CLERK [address] [place] [phone] documented as of this encounter Visit Diagnoses [...] documented as of this encounter Care Teams Infrastructure Architect Relationship Specialty Start Date End Date Zhao Harris MD [address] [facility] [address] [place] [id number] PCP - General 12/03/20 documented as of this encounter
--- OUTSIDE RECORDS SUMMARY | 2025-01-20 08:38 | XMS_ITS | Encounter Summary ---
Author Organization [employer] ([place], [place], [place], [place]) Address [address] [place] [address] Care Team Providers Care Type Inspector Name Role Phone Unavailable Primary Care Provider Unavailabl e Encounter Details Date Type Department Care Team (Late st Contact Info) Description 07/10/2019 Transcribed Document [facility] [place] Family Medicine [address] [place] [address] ProviderBrigida MD [address] [place] [address] Social History Tobacco Use Types [...] Note - Brigida Vega MD - 07/10/2019 9:24 AM VICE [place]IDENT [place] [address] HUGO AGUILAR JR :1955 Visit Time:07/10/2019 What to do next Your Diagnosis Chondromalacia, right knee, Chondromalacia, right knee Instructions From Your Care Team Weight bearing as tolerated, use cane or crutches if needed. Keep dressing clean and dry for at least 2 days. Resume all home medications. Usual diet as tolerated. Weott 10/325mg 1 tablet every 6 hours as needed for pain- next dose due @ 3:30pm today 07/10/19. Follow-Up Appointments Follow Up with SURY SHARMA MD-ORT When 07/21/2019 02:00 PM EST Where: [address] [facility] [address] [place] [address]- Medications What How Much When Instructions Next [...] activities are safe for you. ??? Take mrmx-bkq-btbavcw and prescription medicines only as told by [...] 12/28/2017 Document Revised: 03/07/2018 Document Reviewed: 12/28/2017 [employer] Patient Education ?? 2019 [employer] General Anesthesia, Adult, Care After This [...] activities are safe for you. ??? Take ibgq-gfh-unzlojl and prescription medicines only as told by [...] 10/15/2001 Document Revised: 02/22/2018 Document Reviewed: 02/22/2018 [employer] Patient Education ?? 2019 [employer] Knee Arthroscopy, Care After Refer to [...] activities are safe for you. ??? Perform xclhi-rt-dmxsuh exercises only as directed by your health [...] 01/26/2006 Document Revised: 12/08/2016 Document Reviewed: 07/05/2015 [employer] Patient Education ?? 2018 [employer] acetaminophen and hydrocodone (a SEET a MIN oh fen and laurie droe KOE done) Hycet, Lorcet, Weott, Verdrocet, Vicodin, Xodol, Zamicet What is the [...] may report side effects to FDA at [phone]-KMG-[phone]. What other drugs will affect acetaminophen and [...] affect acetaminophen and hydrocodone, including prescription and yflm-mcu-xugvsmt medicines, vitamins, and herbal products. Not all [...] to ensure that the information provided by [employer]. ('[employer]') is accurate, up-to-date, and complete, but no guarantee is made to that effect. Drug information contained herein may be time sensitive. [employer] information has been compiled for use by healthcare practitioners and consumers in the [place] and therefore [employer] does not warrant that uses outside of the [place] are appropriate, unless specifically indicated otherwise. [employer]s drug information does not endorse drugs, diagnose patients or recommend therapy. [employer]s drug information is an informational resource designed [...] effective or appropriate for any given patient. [facility] does not assume any responsibility for any aspect of healthcare administered with the aid of information [facility] provides. The information contained herein is not intended to cover all possible uses, directions, precautions, warnings, drug interactions, allergic reactions, or adverse effects. If you have questions about the drugs you are taking, check with your doctor, nurse or pharmacist. Copyright 4663-0547 [employer]. Version: 15.02. Revision Date: 05/27/2018. Emergency Awareness [...] Assistance with quitting is available by contacting 7-116-MXWQ-NOW. This is a free resource providing counseling, [...] was given the opportunity to ask questions. Patient/Tutoring Clinician Name: Patient/Tutoring Clinician Signature: Relationship to Patient: Clinician/Hospital Tutoring Clinician Signature: Date: documented in this encounter Plan of Treatment Not on file documented as of this encounter Visit Diagnoses Not on filedocumented in this encounter
--- OUTSIDE RECORDS SUMMARY | 2025-01-20 08:39 | XMS_ITS | Clinical Summary ---
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 90 tablet 3 5 Active rosuvastatin (Crestor) 40 MG tablet Take 1 tablet (40 mg) by mouth daily. 30 tablet 11 5 Active levoFLOXacin (Levaquin) 500 MG tabletIndicatio ns:Myelodysplas ia (myelodysplasti c syndrome) (CMS/HCC) Take 1 tablet (500 mg) by mouth daily. 30 tablet 3 5 Active acyclovir (Zovirax) 800 MG tabletIndicatio ns:Myelodysplas ia (myelodysplasti c syndrome) (CMS/HCC) Take 1 tablet (800 mg) by mouth in the morning and 1 tablet (800 mg) before bedtime. 60 tablet 3 5 Active posaconazole (Noxafil) [address] tabletIndicatio ns:Myelodysplas ia (myelodysplasti c syndrome) (CMS/HCC) Take 3 tablets (300 mg) by mouth daily with breakfast. Starting Cycle 1 Day 3 of venetoclax, take 300mg twice daily for 2 doses, then 300mg daily every day from then on. Do not crush, chew, or split. 90 tablet 5 5 Active prochlorperazin e (Compazine) 10 MG tabletIndicatio ns:Myelodysplas ia (myelodysplasti c syndrome) (CMS/HCC) Take 1 tablet (10 mg) by mouth every 6 hours as needed for nausea or vomiting. 30 tablet 5 5 Active senna-docusate sodium (Senokot-S) 8.6-50 MG tablet Take 2 tablets by mouth at night as needed for constipation. 30 tablet 3 5 Active HYDROcodone-shalom taminophen ([place]) 5-325 MG tablet Take 1 tablet by mouth every 6 hours as needed. 5 Active hydrocortisone 2.5 % cream Apply 1 Application topically as needed for rash. 20 g 5 Active lidocaine-prilo jaleesa (Emla) 2.5-2.5 % cream Apply 1 inch cream to port site and cover with a dressing 60 minutes prior to being accessed. 30 g 2 5 Active magic mouthwash BLM (FIRST-Mouthwas h) suspension Use 15 mL in the mouth or throat 4 times a day as needed for mucositis (swish and swallow prn for mouth sores). Swish and swallow 15 mL 4 times daily prn for mouth sores 237 mL 2 5 Active amLODIPine (Norvasc) 2.5 MG tablet Take 1 tablet by mouth once daily 90 tablet 1 5 Active venetoclax (Venclexta) 50 MG tabletIndicatio ns:Myelodysplas ia (myelodysplasti c syndrome) (CMS/HCC) Take 1 tablet by mouth daily for 14 days. Take on days 1-14 of a 28 day cycle in combination with other tablets for a total of 70mg daily. 14 tablet 5 01/28/20 25 Active venetoclax (Venclexta) 10 MG tabletIndicatio ns:Myelodysplas ia (myelodysplasti c syndrome) (CMS/HCC) Take 2 tablets by mouth daily for 14 days. Take 2 tabs on days 1-14 of a 28 day cycle in combination with other tablets for a total of 70mg daily. 28 tablet 5 01/28/20 25 Active venetoclax (Venclexta) 50 MG tabletIndicatio ns:Myelodysplas ia (myelodysplasti c syndrome) (CMS/HCC) Take 1 tablet by mouth daily for 14 days. 14 tablet 5 12/31/19 25 Additional Information Patient not taking.Reported on 01/06/2025 venetoclax (Venclexta) 10 MG tabletIndicatio ns:Myelodysplas ia (myelodysplasti c syndrome) (CMS/HCC) Take 2 tablets by mouth daily for 14 days. 28 tablet 5 12/31/19 25 Additional Information Patient not taking.Reported on 01/06/2025 Active Problems Problem Noted Date Diagnosed Date [...] Encounters Date Type Department Care Team Description 01/17/2025 7:45 AM EDT - 01/17/2025 11:59 PM EDT Hospital Encounter [facility] [address] [place] [address] Myelodysplasia (myelodysplastic syndrome) (CMS/HCC) (Primary Dx); Thrombocytopenia (CMS/HCC) Discharge Disposition: Home or Self Care 01/17/2025 Travel 01/16/2025 7:55 AM EDT - 01/16/2025 11:59 PM EDT Hospital Encounter [facility] [address] [place] [address] Myelodysplasia (myelodysplastic syndrome) (CMS/HCC) (Primary Dx) Discharge Disposition: Home or Self Care 01/16/2025 Travel 01/15/2025 9:58 AM EDT - 01/15/2025 11:59 PM EDT Hospital Encounter [facility] [address] [place] [address] Discharge Disposition: Home or Self Care 01/15/2025 8:11 AM EDT - 01/15/2025 9:57 AM EDT Hospital Encounter [facility] [address] [place] [address] Myelodysplasia (myelodysplastic syndrome) (CMS/HCC) (Primary Dx); Thrombocytopenia (CMS/HCC) Discharge Disposition: Home or Self Care 01/15/2025 Travel 01/14/2025 8:07 AM EDT - 01/14/2025 11:59 PM EDT Hospital Encounter [facility] 1 [address] [place] [address] Myelodysplasia (myelodysplastic syndrome) (CMS/HCC) (Primary Dx) Discharge Disposition: Home or Self Care 01/14/2025 Travel 01/13/2025 11:30 AM EDT - 01/13/2025 11:59 PM EDT Hospital Encounter [facility] [address] [place] [address] Myelodysplasia (myelodysplastic syndrome) (CMS/HCC) (Primary Dx); Thrombocytopenia (CMS/HCC) Discharge Disposition: Home or Self Care 01/13/2025 10:00 AM EDT Office Visit [facility]BMT and Cellular Therapy Program [address] [facility], [address] [place] [phone] Isaura Wynn APRN Myelodysplasia (myelodysplastic syndrome) (CMS/HCC) (Primary Dx) 01/13/2025 9:30 AM EDT Clinical Support [facility] [address] [facility], [address] [place] [phone] 01/13/2025 Travel 01/12/2025 Telephone [facility] [address] [facility], [address] [place] [phone] Virgen Vargas MD 01/06/2025 9:00 AM EDT Procedure Visit [facility] [address] [facility], [address] [place] [phone] Kierra Novak APRN Myelodysplasia (myelodysplastic syndrome) (CMS/HCC) 01/06/2025 8:30 AM EDT Clinical Support [facility] [address] [phone] Nate Ponce RN 01/06/2025 Travel 01/05/2025 Travel 01/01/2025 [facility] [place] [address] [facility]. [address] [place] [address] Ra Best MD 12/23/2024 Orders Only [facility]MT [facility] Cellular Therapy [facility] [address] [facility], [address] [place] [phone] Adam Conway, RN Myelodysplasia (myelodysplastic syndrome) (CMS/HCC) (Primary Dx) 12/22/2024 9:58 AM EDT - 12/22/2024 11:59 PM EDT Hospital Encounter [facility] [address] [place] [address] Myelodysplasia (myelodysplastic syndrome) (CMS/HCC) (Primary Dx) Discharge Disposition: Home or Self Care 12/22/2024 8:24 AM EDT - 12/22/2024 9:57 AM EDT Hospital Encounter [facility] [address] [place] [address] Myelodysplasia (myelodysplastic syndrome) (CMS/HCC) (Primary Dx); Thrombocytopenia (CMS/HCC) Discharge Disposition: Home or Self Care 12/22/2024 Travel 12/21/2024 8:30 AM EDT - 12/21/2024 11:59 PM EDT Hospital Encounter [facility] 1 [address] [place] [address] Myelodysplasia (myelodysplastic syndrome) (CMS/HCC) (Primary Dx) Discharge Disposition: Home or Self Care 12/21/2024 Travel 12/20/2024 8:08 AM EDT - 12/20/2024 11:59 PM EDT Hospital Encounter [facility] 1 [address] [place] [address] Myelodysplasia (myelodysplastic syndrome) (CMS/HCC) (Primary Dx); Thrombocytopenia (CMS/HCC); SOB (shortness of breath) Discharge Disposition: Home or Self Care 12/20/2024 Travel 12/19/2024 8:30 AM EDT - 12/19/2024 11:59 PM EDT Hospital Encounter [facility] 2 [address] [place] [address] Myelodysplasia (myelodysplastic syndrome) (CMS/HCC) (Primary Dx) Discharge Disposition: Home or Self Care 12/19/2024 Travel 12/18/2024 9:46 AM EDT - 12/18/2024 11:59 PM EDT Hospital Encounter [facility] [address] [place] [address] Myelodysplasia (myelodysplastic syndrome) (CMS/HCC) (Primary Dx) Discharge Disposition: Home or Self Care 12/18/2024 8:30 AM EDT - 12/18/2024 9:45 AM EDT Hospital Encounter [facility] [address] [place] [address] Myelodysplasia (myelodysplastic syndrome) (CMS/HCC) (Primary Dx); Thrombocytopenia (CMS/HCC) Discharge Disposition: Home or Self Care 12/18/2024 Travel 12/17/2024 8:23 AM EDT - 12/17/2024 11:59 PM EDT Hospital Encounter [facility] [address] [place] [address] Myelodysplasia (myelodysplastic syndrome) (CMS/HCC) (Primary Dx); Thrombocytopenia (CMS/HCC) Discharge Disposition: Home or Self Care 12/17/2024 Travel 12/16/2024 11:00 AM EDT - 12/16/2024 11:59 PM EDT Hospital Encounter [facility] [address] [place] [address] Myelodysplasia (myelodysplastic syndrome) (CMS/HCC) (Primary Dx) Discharge Disposition: Home or Self Care 12/16/2024 10:00 AM EDT - 12/16/2024 10:59 AM EDT Hospital Encounter [facility] [address] [place] [address] Myelodysplasia (myelodysplastic syndrome) (CMS/HCC) (Primary Dx); Thrombocytopenia (CMS/HCC) Discharge Disposition: Home or Self Care 12/16/2024 8:30 AM EDT Office Visit [facility] [address] [place] [address] Isaura Wynn APRN Myelodysplasia (myelodysplastic syndrome) (CMS/HCC) (Primary Dx) 12/16/2024 8:00 AM EDT Clinical Support [facility] [address] [place] [address] 12/16/2024 Orders Only [facility] [address] [place] [address] Christina Ramos MD Myelodysplasia (myelodysplastic syndrome) (CMS/HCC) (Primary Dx) 12/16/2024 Travel 12/12/2024 Orders Only [facility] [address] [place] [address] Gricel Gonzalez RN 12/11/2024 2:30 PM EDT Office Visit [facility] Vascular Interventional Radiology [address] [place] [phone] Judy Leung APRN, SHEEBA Port-A-Cath in place (Primary Dx); Myelodysplasia (myelodysplastic syndrome) (CMS/HCC) 12/11/2024 1:00 PM EDT Clinical Support [facility] Treatment [facility] [address] [facility], [address] [place] [address] Myelodysplasia (myelodysplastic syndrome) (CMS/HCC) (Primary Dx); Thrombocytopenia (CMS/HCC) 12/11/2024 9:00 AM EDT Office Visit [facility] Therapy [facility] [address] [place] [phone] Virgen Vargas MD Myelodysplasia (myelodysplastic syndrome) (CMS/HCC) (Primary Dx); Encounter for antineoplastic chemotherapy; 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); Pancytopenia due to chemotherapy (CMS/HCC); Immunosuppressed due to chemotherapy 12/11/2024 8:30 AM EDT Clinical Support [facility] [address] [address] Myelodysplasia (myelodysplastic syndrome) (CMS/HCC) 12/11/2024 Orders Only [facility] Therapy [facility] [address] [place] [phone] Shahla Mejia, feed manager myeloid leukemia not having achieved remission (CMS/HCC) (Primary Dx) 12/11/2024 Travel 12/09/2024 1:30 PM EDT Clinical Support [facility] [address] [facility], [address] [place] [address] Myelodysplasia (myelodysplastic syndrome) (CMS/HCC) (Primary Dx); Thrombocytopenia (CMS/HCC) 12/09/2024 9:00 AM EDT Procedure Visit [facility] Therapy [facility] [address] [phone] Kierra Novak APRN Myelodysplasia (myelodysplastic syndrome) ([facility]/HCC) 12/09/2024 8:30 AM EDT Clinical Support [facility] [address] [place] [phone] 12/09/2024 Telephone [facility] [address] [phone] Essei Ricks RN 12/09/2024 Travel 12/08/2024 Travel 12/04/2024 Telephone [facility] Vascular Interventional Radiology [address] [facility] [address] [place] [phone] Martha William 12/01/2024 8:41 AM EDT - 12/01/2024 11:59 PM EDT Hospital Encounter [facility] [address] [place] [address] Gela Singer Thrombocytopenia ([facility]/HCC) (Primary Dx); Myelodysplasia (myelodysplastic syndrome) ([facility]/HCC) Discharge Disposition: Home or Self Care 12/01/2024 Travel 11/26/2024 10:00 AM EDT Office Visit [facility] Vascular Interventional Radiology [address] [facility] [address] [place] [phone] Latoya Nunez APRN Preop examination (Primary Dx) 11/26/2024 Travel 11/25/2024 Telephone [facility] [address] [phone] Michelle Mast Distress Screen Follow-up 11/24/2024 2:30 PM EDT - 11/24/2024 11:59 PM EDT Hospital Encounter [facility] 1 [address] [place] [address] Discharge Disposition: Home or Self Care 11/24/2024 1:59 PM EDT - 11/24/2024 2:29 PM EDT Hospital Encounter [facility] Infusion Clinic 1 [address] [place] [address] Myelodysplasia (myelodysplastic syndrome) (CMS/HCC) (Primary Dx); Thrombocytopenia (CMS/HCC) Discharge Disposition: Home or Self Care 11/24/2024 Travel 11/23/2024 1:43 PM EDT - 11/23/2024 11:59 PM EDT Hospital Encounter [facility] Infusion Clinic 1 [address] [place] [address] Myelodysplasia (myelodysplastic syndrome) (CMS/HCC) (Primary Dx) Discharge Disposition: Home or Self Care 11/23/2024 Travel 11/22/2024 1:59 PM EDT - 11/22/2024 11:59 PM EDT Hospital Encounter [facility] Infusion Clinic 1 [address] [place] [address] Myelodysplasia (myelodysplastic syndrome) (CMS/HCC) (Primary Dx); Thrombocytopenia (CMS/HCC) Discharge Disposition: Home or Self Care 11/22/2024 Travel 11/21/2024 1:30 PM EDT - 11/21/2024 11:59 PM EDT Hospital Encounter [facility] Infusion Clinic 1 [address] [place] [address] Myelodysplasia (myelodysplastic syndrome) (CMS/HCC) (Primary Dx) Discharge Disposition: Home or Self Care 11/21/2024 Travel 11/20/2024 2:06 PM EDT - 11/20/2024 11:59 PM EDT Hospital Encounter [facility] Infusion Clinic 1 [address] [place] [address] Myelodysplasia (myelodysplastic syndrome) (CMS/HCC) (Primary Dx) Discharge Disposition: Home or Self Care 11/20/2024 1:36 PM EDT - 11/20/2024 2:05 PM EDT Hospital Encounter [facility] Infusion Clinic 1 [address] [place] [address] Myelodysplasia (myelodysplastic syndrome) (CMS/HCC) (Primary Dx); Thrombocytopenia (CMS/HCC) Discharge Disposition: Home or Self Care 11/20/2024 Travel 11/19/2024 2:00 PM EDT - 11/19/2024 11:59 PM EDT Hospital Encounter [facility] 1 [address] [place] [address] Myelodysplasia (myelodysplastic syndrome) (CMS/HCC) (Primary Dx) Discharge Disposition: Home or Self Care 11/19/2024 Travel 11/19/2024 Orders Only [facility] Therapy [facility] [address] [phone] Adam Conway, RN Myelodysplasia (myelodysplastic syndrome) (CMS/HCC) (Primary Dx) 11/18/2024 12:25 PM EDT - 11/18/2024 11:59 PM EDT Hospital Encounter [facility] 1 [address] [place] [address] Myelodysplasia (myelodysplastic syndrome) (CMS/HCC) (Primary Dx); Thrombocytopenia (CMS/HCC) Discharge Disposition: Home or Self Care 11/18/2024 11:00 AM EDT Office Visit [facility] [address] [phone] Isaura Wynn APRN Myelodysplasia (myelodysplastic syndrome) (CMS/HCC) (Primary Dx) 11/18/2024 10:30 AM EDT Clinical Support [facility] [address] [address] 11/18/2024 Telephone [facility] [address] [place] [address] Maia Velasquez, PharmD 11/18/2024 Telephone [facility] [address] [phone] Brittny Mahoney, RN 11/18/2024 Telephone [facility] [address] [address] Gricel Gonzalez RN 11/18/2024 Travel 11/17/2024 Travel 11/10/2024 3:00 PM EDT - 11/10/2024 11:59 PM EDT Hospital Encounter [facility] [address] [place] [address] Myelodysplasia (myelodysplastic syndrome) (CMS/HCC) (Primary Dx); Thrombocytopenia (CMS/HCC) Discharge Disposition: Home or Self Care 11/10/2024 2:00 PM EDT Procedure Visit [facility] [address] [place] [address] Elaina Boss PA Myelodysplasia (myelodysplastic syndrome) (CMS/HCC) (Primary Dx) 11/10/2024 1:30 PM EDT Clinical Support [facility] [address] [place] [address] Eliana Vicente RN 11/10/2024 Travel 11/05/2024 11:00 AM EDT Clinical Support [facility] [address] [facility], [address] [place] [phone] Dyspnea on exertion 11/05/2024 10:00 AM EDT Office Visit [facility] [address] [facility], [address] [place] [phone] Elsa Razo, ESTRELLA Pre-transplant evaluation for stem cell transplant (Primary Dx); Myelodysplasia (myelodysplastic syndrome) (CMS/HCC); Dyspnea on exertion; Coronary artery disease involving red cliff coronary artery of red cliff heart without angina pectoris; Thrombocytopenia (CMS/HCC) 11/05/2024 Results Follow-Up [facility] [address] [facility], [address] [place] [phone] Elsa Razo, ESTRELLA 11/05/2024 Travel 11/03/2024 2:31 PM EDT - 11/03/2024 6:28 PM EDT Emergency [facility] [address] [place] [address] Kyle Bearden MD Symptomatic anemia (Primary Dx); Thrombocytopenia (CMS/HCC); Neutropenia, unspecified type (CMS/HCC) Discharge Disposition: Home or Self Care 11/03/2024 Travel 11/03/2024 Telephone [facility] Therapy [facility] [address] [facility], [address] [place] [address] [place] [address] Virgen Vargas MD 10/29/2024 Telephone [facility] Therapy [facility] [address] [facility], [address] [place] [address] [place] [address] Virgen Vargas MD 10/26/2024 1:20 PM EDT - 10/26/2024 11:59 PM EDT Hospital Encounter [facility] 2 [address] [place] [address] Myelodysplasia (myelodysplastic syndrome) (CMS/HCC) (Primary Dx); Thrombocytopenia (CMS/HCC) Discharge Disposition: Home or Self Care 10/26/2024 Travel 10/25/2024 2:50 PM EDT - 10/25/2024 11:59 PM EDT Hospital Encounter [facility] 2 [address] [place] [address] Myelodysplasia (myelodysplastic syndrome) (CMS/HCC) (Primary Dx) Discharge Disposition: Home or Self Care 10/25/2024 Travel 10/24/2024 2:12 PM EDT - 10/24/2024 11:59 PM EDT Hospital Encounter [facility] [address] [place] [address] Myelodysplasia (myelodysplastic syndrome) (CMS/HCC) (Primary Dx) Discharge Disposition: Home or Self Care 10/24/2024 Travel 10/24/2024 Orders Only [facility] Therapy [facility] [address] [facility], [address] [place] [address] [place] [address] Maia Kaplan RN 10/24/2024 Telephone [facility] Therapy [facility] [address] [facility], [address] [place] [phone] Virgen Vargas MD 10/23/2024 2:53 PM EDT - 10/23/2024 11:59 PM EDT Hospital Encounter [facility] Infusion Clinic 2 [address] [place] [address] Myelodysplasia (myelodysplastic syndrome) (CMS/HCC) (Primary Dx) Discharge Disposition: Home or Self Care 10/23/2024 Travel 10/22/2024 3:39 PM EDT - 10/22/2024 11:59 PM EDT Hospital Encounter [facility] Infusion Clinic 2 [address] [place] [address] Thrombocytopenia (CMS/HCC) (Primary Dx); Myelodysplasia (myelodysplastic syndrome) (CMS/HCC) Discharge Disposition: Home or Self Care 10/22/2024 Travel 10/21/2024 3:08 PM EDT - 10/21/2024 11:59 PM EDT Hospital Encounter [facility] Infusion Clinic 2 [address] [place] [address] Myelodysplasia (myelodysplastic syndrome) (CMS/HCC) (Primary Dx); SOB (shortness of breath) Discharge Disposition: Home or Self Care 10/21/2024 Travel from Last 3 Months Immunizations Immunization [...] drink first t manav in the morning (EYE-BROADCAST OPERATIONS ENGINEER) to steady your nerves or to [...] Mass Index 28.52 01/17/2025 7:47 AM EDT Plan of Treatment Upcoming Encounters Date Type Department Care Team (Late st Contact Info) Description 02/02/2025 11:00 AM EDT Appointment [facility] Interventional Radiology [address] [place] [address] 02/10/2025 8:30 AM EDT Clinical Support [facility] [address] [place] [address] [place] [address] 02/10/2025 9:00 AM EDT Office Visit [facility] Therapy Program [address] [place] [address] [place] [address] Elaina Boss, PA 800 [facility] [address] [place] [address] 02/10/2025 10:30 AM EDT Appointment [facility] 1 [address] [place] [address] 02/11/2025 2:00 PM EDT Appointment [facility] 1 [address] [place] [phone] 02/12/2025 2:00 PM EDT Appointment [facility] 1 [address] [place] [address] 02/13/2025 2:00 PM EDT Appointment [facility] 1 [address] [place] [address] 02/14/2025 2:00 PM EDT Appointment [facility] 1 [address] [place] [address] 03/10/2025 8:30 AM EDT Clinical Support [facility] [address] [phone] 03/10/2025 9:00 AM EDT Office Visit [facility] Therapy [facility] [address] [phone] Isaura Wynn, GRADUATION COACH 800 [facility] [address] [place] [address] 03/10/2025 11:20 AM EDT Office Visit [facility] [address] [facility], [address]nd [place] [address] Elsa Razo, GRADUATION COACH [address] [place] [phone] Health Maintenance Due Date Last Done Comments [facility]-Medicare Annual Wellness (AWV) 1955 [facility]-/Child/Adol SDOH Screenings [...] 2015 [facility]-Abdominal Aortic Aneurysm (AAA) Screening 2020 [id number] Vaccine (3 - Pfizer risk series) 11/11/2020 10/14/2020, 09/22/2020 [facility]-Influenza Vaccine (#1) 2025 06/12/2024, [facility]-Depression Screening 01/13/2026 01/13/2025, 08/24 [facility]-DTaP,Tdap,and Td Vaccines (2 - Td or Tdap) 06/12/2034 06/12/2024 [facility]-Hepatitis C Screening Completed 09/29/2024, 09/2018 [facility]-Obesity Intervention Completed 025, 12/16/2024, 12/11/2024, Additional history exists HPV Vaccines Aged Out [...] this topic Medical Devices Implanted Type Area Dopeman Device Identifier Shelf Expiration Date Model / Serial / Lot Port Clearvue Power 8fr - [id number] Implanted:Qty: 1 on 12/01/2024 by Mckinley Lee MD at [facility] Peripherial [id number] / / Procedures Procedure Name Priority Date/Time Associated Diagnosis Comments TRANSFUSE RED BLOOD CELLS Routine 01/17/2025 9:30 AM EDT Myelodysplasia (myelodysplastic syndrome) (CMS/HCC) Thrombocytopenia (CMS/HCC) PREPARE RBC Routine 01/17/2025 8:56 AM EDT Myelodysplasia (myelodysplastic syndrome) (CMS/HCC) Thrombocytopenia (CMS/HCC) CBC WITH AUTO DIFFERENTIAL Routine 01/17/2025 8:03 AM EDT Myelodysplasia (myelodysplastic syndrome) (CMS/HCC) TYPE AND SCREEN Routine 01/16/2025 9:54 AM EDT CBC W/O DIFFERENTIAL STAT Add-on 01/16/2025 8:12 AM EDT PLATELET COUNT, BLOOD STAT 01/16/2025 8:12 AM EDT TRANSFUSE PLATELETS Routine 01/15/2025 1 0:15 AM [...] 8:17 AM EDT Myelodysplasia (myelodysplastic syndrome) (CMS/HCC) CBC WITH AUTO DIFFERENTIAL Routine 01/14/2025 9:06 [...] 9:06 AM EDT Myelodysplasia (myelodysplastic syndrome) (CMS/HCC) PLATELET COUNT, BLOOD STAT 01/13/2025 2:07 PM EDT TRANSFUSE PLATELETS Routine 01/13/2025 1 :31 PM EDT Myelodysplasia (myelodysplastic syndrome) (CMS/HCC) Thrombocytopenia (CMS/HCC) EXCEPTION TO STANDARD PRACTICE, PATHOLOGIST INTERPRETATION Routine 01/13/2025 1:03 PM EDT Myelodysplasia (myelodysplastic syndrome) (CMS/HCC) PREPARE PLATELETS Routine 01/13/2025 12: 07 PM EDT Myelodysplasia (myelodysplastic syndrome) (CMS/HCC) Thrombocytopenia (CMS/HCC) COMPREHENSIVE METABOLIC PANEL, PLASMA Routine 01/13/2025 10:02 AM EDT Myelodysplasia (myelodysplastic syndrome) (CMS/HCC) CBC WITH AUTO DIFFERENTIAL Routine 01/13/2025 10:02 AM EDT Myelodysplasia (myelodysplastic syndrome) (CMS/HCC) BIOPSY BONE MARROW Routine 01/06/2025 10 :00 AM EDT Myelodysplasia (myelodysplastic syndrome) (CMS/HCC) BONE MARROW EXAM Routine 01/06/2025 9:48 AM EDT Myelodysplasia (myelodysplastic syndrome) (CMS/HCC) LEUKEMIA/LYMPHOMA [...] Preop examination TRANSFUSE RED BLOOD CELLS Routine 11/24/2024 4:44 [...] syndrome) (CMS/HCC) TRANSFUSE RED BLOOD CELLS Routine 11/18/2024 2:10 [...] (myelodysplastic syndrome) (CMS/HCC) N-TERMINAL PROBNP, PLASMA Routine 11/05/2024 11:01 AM EDT Dyspnea on exertion ECG [...] (myelodysplastic syndrome) (CMS/HCC) SOB (shortness of breath) HEPATITIS C ANTIBODY W/REFLEX TO HCV QUANT PCR Routine 09/29/2024 12:51 PM EDT Myelodysplasia (myelodysplastic syndrome) (CMS/HCC) from Last 3 Months or Most Recently Relevant to Health Maintenance Results * Transfuse RBC, Irradiated (01/17/2025 11:42 AM EDT) Only the most recent of8 resultswithin the time period is included. Kayli CHIU BLOOD TRANSFUSION ORDERA BLES Final Result * Prepare Leukocyte Reduced RBC: 1 Units, Irradiated (01/17/2025 8:56 AM EDT) Only the most recent of8 resultswithin the time period is included. [facility] Product Code [id number] BLOO D BANK Dispense Status Transfused BLOOD BANK Blood Expiration Date [id number] BLOOD BANK Unit Number [id number] B LOOD BANK Product Blood Type 9500 BLOOD BANK Blood Type O- BLOOD BANK Crossmatch Compatible BLOOD BANK Other Kayli CHIU BLOOD BANK PRODUCT ORDER VIKAS Final Result Performing Organization Address City/State/[facility] Co de Phone Number BLOOD BANK [address] [place] [address], * (ABNORMAL) CBC and differential (01/17/2025 8:03 AM EDT) Only the most recent of22 resultswithin the time period is included. [facility] WBC Count 0.54(LL) 3.70 - 10.30 10*3/uL LAB HEMATOLOGY METHOD 01/17/2025 9:41 AM EDT [facility] RBC Count 2.55(L) 4.60 - 6.10 10*6/uL LAB HEMATOLOGY METHOD 01/17/2025 9:41 AM EDT [facility] HGB 7.6(L) 13.7 - 17.5 g/dL LAB HEMATOLOGY METHOD 01/17/2025 9:41 AM EDT [facility] HCT 21.6(L) 40.0 - 51.0 % LAB HEMATOLOGY METHOD 01/17/2025 9:41 AM EDT [facility] Platelet Count 23(L) 155 - 369 10*3/uL LAB HEMATOLOGY METHOD 01/17/2025 9:41 AM EDT [facility] MCV 85 79 - 98 fL LAB HEMATOLOGY METHOD 01/17/2025 9:41 AM EDT [facility] MCH 29.8 26.0 - 32.0 pg LAB HEMATOLOGY METHOD 01/17/2025 9:41 AM EDT [facility] MCHC 35.2 30.7 - 35.5 g/dL LAB HEMATOLOGY METHOD 01/17/2025 9:41 AM EDT [facility] RDW 14.2 11.5 - 14.5 % LAB HEMATOLOGY METHOD 01/17/2025 9:41 AM EDT [facility] MPV 9.0 8.8 - 12.5 fL LAB HEMATOLOGY METHOD 01/17/2025 9:41 AM EDT [facility] nRBC 0.0 <=0.0 per 100 WBCs LAB HEMATOLOGY METHOD 01/17/2025 9:41 AM EDT [facility] Differential Type Automated LAB HEMATOLOGY METHOD 01/17/2025 9:41 AM EDT [facility] Neutrophils % 7 % LAB HEMATOLOGY METHOD 01/17/2025 9:41 AM EDT [facility] Lymphocytes % 91 % LAB HEMATOLOGY METHOD 01/17/2025 9:41 AM EDT [facility] Monocytes % 2 % LAB HEMATOLOGY METHOD 01/17/2025 9:41 AM EDT [facility] Eosinophils % 0 % LAB HEMATOLOGY METHOD 01/17/2025 9:41 AM EDT [facility] Basophils % 0 % LAB HEMATOLOGY METHOD 01/17/2025 9:41 AM EDT [facility] Immature Granulocytes % 0 % LAB HEMATOLOGY METHOD 01/17/2025 9:41 AM EDT [facility] Neutrophils Absolute 0.04(LL) 1.60 - 6.10 10*3/uL LAB HEMATOLOGY METHOD 01/17/2025 9:41 AM EDT [facility] Lymphocytes Absolute 0.49(L) 1.20 - 3.90 10*3/uL LAB HEMATOLOGY METHOD 01/17/2025 9:41 AM EDT [facility] Monocytes Absolute 0.01(L) 0.30 - 0.90 10*3/uL LAB HEMATOLOGY METHOD 01/17/2025 9:41 AM EDT [facility] Eosinophils Absolute 0.00 0.00 - 0.50 10*3/uL LAB HEMATOLOGY METHOD 01/17/2025 9:41 AM EDT [facility] Basophils Absolute 0.00 0.00 - 0.10 10*3/uL LAB HEMATOLOGY METHOD 01/17/2025 9:41 AM EDT [facility] Immature Granulocytes Absolute 0.00 0.00 - 0.06 10*3/uL LAB HEMATOLOGY METHOD 01/17/2025 9:41 AM EDT [facility] Blood Blood sample taken from central line / Unknown (Port) Long-term Catheter / Unknown 01/17/2025 8:03 AM EDT 01/17/2025 8:07 AM EDT Narrative [facility] - 01/17/2025 9:41 AM EDT Therapeutic decision making should be based on absolute values, rather than percentages. Virgen Vargas MD LAB BLOOD ORDERABLES Final Re sult [facility] [address] [place] [address] * Type and Screen (01/16/2025 9:54 AM EDT) Only the most recent of7 resultswithin the time period is included. ABO/Rh O Negative 01/16/2025 9:51 AM EDT BLOOD BANK Antibody Screen Negative 01/16/2025 9:51 AM EDT BLOOD BANK Specimen Expiration 01/19/2025 23:59 01/16/2025 9:51 AM EDT BLOOD BANK Blood Venous blood specimen / Unknown Venipuncture / Unknown 01/16/2025 9:54 AM EDT 01/16/2025 10:02 AM EDT Virgen Vargas MD LAB BLOOD BANK TEST ORDERABLE S Final Result Performing Organization Address City/[facility]/ZIP Co de Phone Number BLOOD BANK [address] [place] [address], * (ABNORMAL) Platelet count (01/16/2025 8:12 AM EDT) Only the most recent of13 resultswithin the time period is included. Platelet Count 39(L) 155 - 369 10*3/uL LAB HEMATOLOGY METHOD 01/16/2025 8:38 AM EDT [facility] Blood Blood sample taken from central line / Unknown Venipuncture / Unknown 01/16/2025 8:12 AM EDT 01/16/2025 8:27 AM EDT us Virgen Vragas MD LAB BLOOD ORDERABLES Final Re sult [facility] [address] [place] [address] * (ABNORMAL) CBC W/O Differential (01/16/2025 8:12 AM EDT) Only the most recent of2 resultswithin the time period is included. WBC Count 0.49(LL) 3.70 - 10.30 10*3/uL LAB HEMATOLOGY METHOD 01/16/2025 11:30 AM EDT [facility] RBC Count 2.65(L) 4.60 - 6.10 10*6/uL LAB HEMATOLOGY METHOD 01/16/2025 11:30 AM EDT [facility] HGB 8.0(L) 13.7 - 17.5 g/dL LAB HEMATOLOGY METHOD 01/16/2025 11:30 AM EDT [facility] HCT 23.0(L) 40.0 - 51.0 % LAB HEMATOLOGY METHOD 01/16/2025 11:30 AM EDT [facility] Platelet Count 39(L) 155 - 369 10*3/uL LAB HEMATOLOGY METHOD 01/16/2025 11:30 AM EDT [facility] MCV 87 79 - 98 fL LAB HEMATOLOGY METHOD 01/16/2025 11:30 AM EDT [facility] MCH 30.2 26.0 - 32.0 pg LAB HEMATOLOGY METHOD 01/16/2025 11:30 AM EDT [facility] MCHC 34.8 30.7 - 35.5 g/dL LAB HEMATOLOGY METHOD 01/16/2025 11:30 AM EDT [facility] RDW 14.5 11.5 - 14.5 % LAB HEMATOLOGY METHOD 01/16/2025 11:30 AM EDT [facility] MPV 10.2 8.8 - 12.5 fL LAB HEMATOLOGY METHOD 01/16/2025 11:30 AM EDT [facility] nRBC 0.0 <=0.0 per 100 WBCs LAB HEMATOLOGY METHOD 01/16/2025 11:30 AM EDT [facility] Blood Blood sample taken from central line / Unknown Venipuncture / Unknown 01/16/2025 8:12 AM EDT 01/16/2025 8:27 AM EDT Virgen Vargas MD LAB BLOOD ORDERABLES Final Re sult [facility] [address] [place] [address] * Transfuse platelets (01/15/2025 10:55 AM EDT) Only the most recent of14 resultswithin the time period is included. Kayli CHIU BLOOD TRANSFUSION ORDERA BLES Final Result * Exception to Standard Practice, Pathologist Interpretation (01/15/2025 10:08 AM EDT) Only the most recent of13 resultswithin the time period is included. Clinical Diagnosis, Exception to Standard Practice Thrombocytopenia [...] ORDERAB LES Final Result BLOOD BANK [address] [place] [address], * Prepare Leukocyte Reduced Platelets: 1 Units (01/15/2025 9:55 AM EDT) Only the most recent of15 resultswithin the time period is included. Product Code [id number] BLOO D BANK Dispense Status Transfused BLOOD BANK Blood Expiration Date [id number] BLOOD BANK Unit Number [id number] B LOOD BANK Product Blood Type 6200 BLOOD BANK Blood Type A+ BLOOD BANK Blood Venous blood specimen / Unknown Kayli CHIU BLOOD BANK PRODUCT ORDER VIKAS Final Result Performing Organization Address City/[facility]/ZIP Co de Phone Number BLOOD BANK [address] [place] [address], * (ABNORMAL) Uric acid (01/15/2025 8:17 AM EDT) Only the most recent of5 resultswithin the time period is included. Uric Acid, Plasma 3.0(L) 3.7 - 8.0 mg/dL 01/15/2025 9:19 AM EDT [facility] Blood Blood sample taken from central line / Unknown (Port) Long-term Catheter / Unknown 01/15/2025 8:17 AM EDT 01/15/2025 8:47 AM EDT Virgen Vargas MD LAB BLOOD ORDERABLES Final Re sult Performing Organization Address [facility] Co de Phone Number [facility] [address] [place] [address] * Phosphorus (01/15/2025 8:17 AM EDT) Only the most recent of5 resultswithin the time period is included. Phosphorus, Plasma 3.1 2.5 - 4.5 mg/dL 01/15/2025 9:19 AM EDT [facility] Blood Blood sample taken from central line / Unknown (Port) Long-term Catheter / Unknown 01/15/2025 8:17 AM EDT 01/15/2025 8:47 AM EDT Virgen Vargas MD LAB BLOOD ORDERABLES Final Re sult Performing Organization Address [facility] Co de Phone Number [facility] [address] [place] [address] * Magnesium (01/15/2025 8:17 AM EDT) Only the most recent of5 resultswithin the time period is included. Magnesium, Plasma 2.2 1.9 - 2.4 mg/dL 01/15/2025 9:19 AM EDT [facility] Blood Blood sample taken from central line / Unknown (Port) Long-term Catheter / Unknown 01/15/2025 8:17 AM EDT 01/15/2025 8:47 AM EDT Virgen Vargas MD LAB BLOOD ORDERABLES Final Re sult Performing Organization Address [facility] Co de Phone Number [facility] [address] [place] [address] * LACTATE DEHYDROGENASE (01/15/2025 8:17 AM EDT) Only the most recent of5 resultswithin the time period is included. LDH, Plasma 192 116 - 250 U/L 01/15/2025 9:19 AM EDT [facility] Blood Blood sample taken from central line / Unknown (Port) Long-term Catheter / Unknown 01/15/2025 8:17 AM EDT 01/15/2025 8:47 AM EDT us Virgen Vargas MD LAB BLOOD ORDERABLES Final Re sult [facility] [address] [place] [address] * (ABNORMAL) BASIC METABOLIC PANEL (01/15/2025 8:17 AM EDT) Only the most recent of4 resultswithin the time period is included. Glucose, Plasma 96 74 - 99 mg/dL 01/15/2025 9:19 AM EDT [facility] BUN, Plasma 12 8 - 23 mg/dL 01/15/2025 9:19 AM EDT [facility] Creatinine, Plasma 0.71 0.70 - 1.20 mg/dL 01/15/2025 9:19 AM EDT [facility] BUN/Creatinine Ratio 17 01/15/2025 9:19 AM EDT [facility] Sodium, Plasma 139 136 - 145 mmol/L 01/15/2025 9:19 AM EDT [facility] Potassium, Plasma 4.1 3.6 - 4.9 mmol/L 01/15/2025 9:19 AM EDT [facility] Chloride, Plasma 108(H) 97 - 107 mmol/L 01/15/2025 9:19 AM EDT [facility] CO2, Plasma 21(L) 22 - 29 mmol/L 01/15/2025 9:19 AM EDT [facility] Anion Gap 10 6 - 16 mmol/L 01/15/2025 9:19 AM EDT [facility] Total Calcium, Plasma 8.9 8.9 - 10.2 mg/dL 01/15/2025 9:19 AM EDT [facility] eGFRcr 99.3 mL/min/1.7 3m*2 01/15/2025 9:19 AM EDT [facility] Comment:Reported eGFRcr in m L/min/1.73m2 is based the CKD-EPI 2020 equation that does not use a race coefficient. Blood Blood sample taken from central line / Unknown (Port) Long-term Catheter / Unknown 01/15/2025 8:17 AM EDT 01/15/2025 8:47 AM EDT us Virgen Vargas MD LAB BLOOD ORDERABLES Final Re sult [facility] [address] [place] [address] * (ABNORMAL) Comprehensive Metabolic Panel, Plasma (01/13/2025 10:02 AM EDT) Only the most recent of14 resultswithin the time period is included. Glucose, Plasma 104(H) 74 - 99 mg/dL 01/13/2025 10:56 AM EDT [facility] BUN, Plasma 9 8 - 23 mg/dL 01/13/2025 10:56 AM EDT [facility] Creatinine, Plasma 0.72 0.70 - 1.20 mg/dL 01/13/2025 10:56 AM EDT [facility] BUN/Creatinine Ratio 13 01/13/2025 10:56 AM EDT [facility] Sodium, Plasma 140 136 - 145 mmol/L 01/13/2025 10:56 AM EDT [facility] Potassium, Plasma 4.5 3.6 - 4.9 mmol/L 01/13/2025 10:56 AM EDT [facility] Chloride, Plasma 109(H) 97 - 107 mmol/L 01/13/2025 10:56 AM EDT [facility] CO2, Plasma 21(L) 22 - 29 mmol/L 01/13/2025 10:56 AM EDT [facility] Anion Gap 10 6 - 16 mmol/L 01/13/2025 10:56 AM EDT [facility] Total Calcium, Plasma 8.9 8.9 - 10.2 mg/dL 01/13/2025 10:56 AM EDT [facility] Total Protein 6.9 6.3 - 7.9 g/dL 01/13/2025 10:56 AM EDT [facility] Albumin, Plasma 4.1 3.5 - 5.2 g/dL 01/13/2025 10:56 AM EDT [facility] AST, Plasma 84(H) 10 - 50 U/L 01/13/2025 10:56 AM EDT [facility] ALT, Plasma 95(H) 10 - 50 U/L 01/13/2025 10:56 AM EDT [facility] Alkaline Phosphatase, Plasma 83 40 - 115 U/L 01/13/2025 10:56 AM EDT [facility] Total Bilirubin, Plasma 0.7 0.2 - 1.1 mg/dL 01/13/2025 10:56 AM EDT [facility] eGFRcr 98.9 mL/min/1.7 3m*2 01/13/2025 10:56 AM EDT [facility] Comment:Reported eGFRcr in m L/min/1.73m2 is based the CKD-EPI 2020 equation that does not use a race coefficient. Blood Blood sample taken from central line / Unknown (Port) Long-term Catheter / Unknown 01/13/2025 10:02 AM EDT 01/13/2025 10:24 AM EDT us Isaura Wynn APRN LAB BLOOD ORDERABLES Final Res ult [facility] [address] [place] [address] * BIOPSY BONE MARROW (01/06/2025 10:00 AM EDT) Narrative Kierra Novak APRN - 01/06/2025 10:00 AM EDT Kierra Novak APRN 01/06/2025 10:24 AM Biopsy bone marrow Date/Time: 01/06/2025 10:00 AM Performed by: Kierra Novak APRN Authorized by: Kierra Novak APRN Consent: Consent obtained: Written Consent given by: Patient Risks, benefits, and alternatives were discussed: yes Risks discussed: Bleeding, infection and pain [place] protocol: Procedure explained and questions answered to [...] resultswithin the time period is included. Pathologist [facility] Clinical Indication AML 01/07/2025 10:18 AM EDT [...] disease. Final interpretation requires morphologic correlation ([id number]). The following antibodies were used in this analysis: CD45, CD2, CD3, CD4, CD5, CD7, CD8, CD10, CD13, CD14, CD15, CD16, CD19, CD20, CD33, CD34, CD38, CD56, CD117, HLA-DR, kappa surface light chains, lambda surface light chains, CD123 01/07/2025 10:18 AM EDT [facility] Disclaimer This test was developed and its performance characteristics determined by the Immuno-Molecular Pathology Laboratory at the [facility]. It has not been cleared [...] clinical laboratory testing. 01/07/2025 10:18 AM EDT [facility] Pathologist Signature Reviewed by: Tessie Peralta MD 01/07/2025 10:18 AM EDT [facility] MRD Indicated Test Not Indicated 10:18 AM EDT [facility] Bone Marrow Specimen from bone marrow obtained by aspiration / Unknown Non-blood Collection / Unknown 01/06/2025 9:48 AM EDT 01/06/2025 11:20 AM EDT Virgen Vargas MD LAB FLOW CYTOMETRY ORDERABLES Final Result Performing Organization Address City/State/[facility] Co de Phone Number [facility] [address] [place] [address] * Bone marrow exam (01/06/2025 9:48 AM EDT) Only the most recent of3 resultswithin the time period is included. Case Report Bone Marrow Case: [id number] Authorizing Provider: Virgen Vargas MD Collected: 01/06/2025 0948 Ordering Location: [facility] Hematology/BMT and Received: 01/06/2025 1108 Cellular Therapy Program Pathologist: Tessie Peralta MD Specimens: A) - Bone Marrow Aspirate, left B) - Bone Marrow Biopsy, left C) - Peripheral Blood for Bone Marrow 6:13 PM EDT [facility] Final Diagnosis BONE MARROW, LEFT POSTERIOR ILIAC CREST, (PERIPHERAL SMEAR, ASPIRATE SMEARS, AND CORE BIOPSY): - MILDLY HYPOCELLULAR BONE MARROW WITH ERYTHROID HYPERPLASIA, MARKEDLY REDUCED GRANULOPOIESIS, PERSISTENT DYSPOIESIS AND 10% BLASTS, SEE COMMENT. 5 6:13 PM EDT [facility] at 1813 EDT Comment The marrow cellularity is composed of erythroid cells with markedly reduced granulopoiesis and decreased megakaryocytes. Persistent trilineage dyspoiesis is noted. The blast percentages are higher by flow cytometry analysis as the majority of marrow cellularity consists of erythroid precursors that are removed by flow cytometry. 5 6:13 PM EDT [facility] Clinical Information AML 12/22 5 6:13 PM EDT [facility] trabeculae are unremarkable. 5 6:13 PM EDT [facility] Special and Immunohistochemical Stains Immunohistochemica l [...] performed at the [facility], [address] [place] [address]. All tests reported here, except those addressing [...] on decalcified specimens. 5 6:13 PM EDT [facility] Flow Cytometry Interpretation APPROXIMATELY 16% MYELOID BLASTS; EXPRESSING CD34, CD117, CD13, CD33, HLA-DR, PARTIAL CD7, PARTIAL CD123, VARIABLE CD38, AND MODERATE CD45, SEE COMMENT, BONE MARROW ASPIRATE ([id number]) 6:13 PM EDT [facility] Gross Description B. LEFT A single [...] MD LAB PATHOLOGY ORDERABLES Terri l Result [facility] [address] [place] [address] * Group A Streptococcus by PCR (12/16/2024 9:40 AM EDT) Group A Streptococcus PCR Result Not Detected Not Detected 12/16/2024 11:53 AM EDT [facility] Swab Pharyngeal structure / Unknown Non-blood Collection / Unknown 12/16/2024 9:40 AM EDT 12/16/2024 10:10 AM EDT us Isaura Wynn APRN LAB MICROBIOLOGY - GENERAL ORD ERABLES Final Result [facility] [address] [place] [address] * Streptococcus Culture (12/16/2024 9:40 AM EDT) Culture Reading Strep A No Streptococcus pyogenes or Streptococcus dysgalactiae isolated 12/17/2024 2:28 PM EDT [facility] Swab Pharyngeal structure / Unknown Non-blood Collection / Unknown 12/16/2024 9:40 AM EDT 12/16/2024 10:10 AM EDT Isaura Wynn APRN LAB MICROBIOLOGY - GENERAL ORD ERABLES Final Result Performing Organization Address [facility] Co de Phone Number [facility] [address] [place] [address] * Morphology (12/11/2024 8:38 AM EDT) Only the most recent of5 resultswithin the time period is included. Elliptocytes/ Ovalocytes Present LAB HEMATOLOGY METHOD 12/11/2024 10:53 AM EDT [facility] RBC Morphology Slide Reviewed LAB HEMATOLOGY METHOD 12/11/2024 10:53 AM EDT [facility] Platelet Estimate Platelet smear estimate consistent with automated count LAB HEMATOLOGY METHOD 12/11/2024 10:53 AM EDT [facility] Blood Venous blood specimen / Unknown Venipuncture / Unknown 12/11/2024 8:38 AM EDT 12/11/2024 8:50 AM EDT Virgen Vargas MD LAB BLOOD ORDERABLES Final Re sult Performing Organization Address [facility] Co de Phone Number [facility] [address] [place] [address] * (ABNORMAL) Manual Differential (12/11/2024 8:38 AM EDT) Only the most recent of3 resultswithin the time period is included. Blasts % 1 % LAB HEMATOLOGY METHOD 12/11/2024 10:53 AM EDT [facility] Promyelocytes % 0 % LAB HEMATOLOGY METHOD 12/11/2024 10:53 AM EDT [facility] Myelocytes % 0 % LAB HEMATOLOGY METHOD 12/11/2024 10:53 AM EDT [facility] Metamyelocytes % 0 % LAB HEMATOLOGY METHOD 12/11/2024 10:53 AM EDT [facility] Neutrophils % 4 % LAB HEMATOLOGY METHOD 12/11/2024 10:53 AM EDT [facility] Lymphocytes % 90 % LAB HEMATOLOGY METHOD 12/11/2024 10:53 AM EDT [facility] Reactive Lymphocytes % 3 % LAB HEMATOLOGY METHOD 12/11/2024 10:53 AM EDT [facility] Monocytes % 2 % LAB HEMATOLOGY METHOD 12/11/2024 10:53 AM EDT [facility] Eosinophils % 0 % LAB HEMATOLOGY METHOD 12/11/2024 10:53 AM EDT [facility] Basophils % 0 % LAB HEMATOLOGY METHOD 12/11/2024 10:53 AM EDT [facility] Blasts Absolute 0.01 10*3/UL LAB HEMATOLOGY METHOD 12/11/2024 10:53 AM EDT [facility] Promyelocytes Absolute 0.00 10*3/uL LAB HEMATOLOGY METHOD 12/11/2024 10:53 AM EDT [facility] Myelocytes Absolute 0.00 10*3/uL LAB HEMATOLOGY METHOD 12/11/2024 10:53 AM EDT [facility] Metamyelocytes Absolute 0.00 10*3/uL LAB HEMATOLOGY METHOD 12/11/2024 10:53 AM EDT [facility] Neutrophils Absolute 0.02(LL) 1.60 - 6.10 10*3/uL LAB HEMATOLOGY METHOD 12/11/2024 10:53 AM EDT [facility] Lymphocytes Absolute 0.55(L) 1.20 - 3.90 10*3/uL LAB HEMATOLOGY METHOD 12/11/2024 10:53 AM EDT [facility] Reactive Lymphocytes Absolute 0.02 10*3/uL LAB HEMATOLOGY METHOD 12/11/2024 10:53 AM EDT [facility] Monocytes Absolute 0.01(L) 0.30 - 0.90 10*3/uL LAB HEMATOLOGY METHOD 12/11/2024 10:53 AM EDT [facility] Eosinophils Absolute 0.00 0.00 - 0.50 10*3/uL LAB HEMATOLOGY METHOD 12/11/2024 10:53 AM EDT [facility] Basophils Absolute 0.00 0.00 - 0.10 10*3/uL LAB HEMATOLOGY METHOD 12/11/2024 10:53 AM EDT [facility] Blood Venous blood specimen / Unknown Venipuncture / Unknown 12/11/2024 8:38 AM EDT 12/11/2024 8:50 AM EDT Virgen Vargas MD LAB BLOOD ORDERABLES Final Re sult Performing Organization Address City/[facility]/ZIP Co de Phone Number [facility] [address] [place] [address] * Peripheral blood smear, pathologist interpretation (12/11/2024 8:38 AM EDT) Only the most recent of3 resultswithin the time period is included. 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 Dysplastic neutrophils (hypogranular) are noted. Moderate anemia and marked thrombocytopen ia. 12/11/2024 4:46 PM EDT [facility] Pathologist Signature, Peripheral Smear 12/11/2024 4:46 PM EDT [facility] Comment:Reviewed by: Omar Peralta MD Blood Venous blood specimen / Unknown Venipuncture / Unknown 12/11/2024 8:38 AM EDT 12/11/2024 8:50 AM EDT Virgen Vargas MD LAB PATHOLOGY ORDERABLES Terri l Result Performing Organization Address City/[facility] Co de Phone Number [facility] [address] [place] [id number] * Chromosome Karyotype, Oncology (12/09/2024 10:15 AM EDT) Only the most recent of2 resultswithin the time period is included. Specimen Type Bone Marrow 12/16/2024 5:59 PM EDT [facility] Clinical Indication Acute Myeloid Leukemia 12/16/2024 5:59 PM EDT [facility] Specimen Adequacy Adequate 025 5:59 PM EDT [facility] Chromosome Analysis Result Giemsa-banded metaphase cells from unstimulated bone marrow cultures showed the following chromosome pattern: 43~45,X,-Y,t(4;1 4)(q21;q32),add( 5)(q13),add(16)( q11.2),-17,add(2 0)(q11.2)[cp13]/ 46,XY[7] 12/16/2024 5:59 PM EDT [facility] Interpretation Abnormal male chromosome [...] were observed on this patient's previous specimen [facility]-[id number] and indicate persistent disease. Clinical correlation is recommended. Note: Per [employer] (CAP) requirement additional karyotypes were performed and charged due to the presence of clonal abnormalities. # cells counted = 20 # cells analyzed = 20 # cells karyotyped = 3 Band resolution: 400 12/16/2024 5:59 PM EDT [facility] Pathologist Signature Reviewed by: Mesfin Rae 12/16/2024 5:59 PM EDT [facility] Bone Marrow Non-blood Collection / Unknown 12/09/2024 10:15 AM EDT 12/09/2024 12:48 PM EDT us Virgen Vargas MD LAB CYTOGENETICS ORDERABLES F inal Result [facility] [address] [place] [address] * BIOPSY BONE MARROW (12/09/2024 10:00 AM EDT) Narrative Kierra Novak APRN - 12/09/2024 10:00 AM EDT Kierra Novak APRN 12/09/2024 12:08 PM Biopsy bone marrow Date/Time: 12/09/2024 10:00 AM Performed by: Kierra Novak APRN Authorized by: Kierra Novak APRN Consent: Consent obtained: Written Consent given by: Patient Risks, benefits, and alternatives were discussed: yes Risks discussed: Bleeding, infection and pain [place] protocol: Procedure explained and questions answered to [...] for port placement. New AML, starting chemotherapy. Java Manager: Mckinley Lee MD Secondary Machine Cage Maker: Dr. David Holt Rad Dose: 6 mGy [...] was placed supine on the fluoro table. Social Media Intern ultrasonography revealed the vein to be compressible [...] with no evidence of complication. Device: 6 Nauruan port catheter cut to length of 25 cm. COMPARISON: None. FINDINGS: Patent R IJV COMPLICATION: No. Procedure Note Mckinley Lee MD - 12/02/2024 CLINICAL INDICATION: 69M here for port placement. New AML, starting chemotherapy. Java Manager: Mckinley Lee MD Secondary Machine Cage Maker: Dr. David Holt Rad Dose: 6 mGy [...] patient was placed supine on the fluoro table.Social Media Intern ultrasonography revealed the vein to be compressible [...] well with no evidence ofcomplication. Device: 6 Nauruan port catheter cut to length of 25 [...] MD on 12/02/2024 7:02 AM Isaura Wynn GRADUATION COACH IMG IR PROCEDURES Final Result * (ABNORMAL) WBC Differential (12/01/2024 9:39 AM EDT) Differential Type Automated LAB HEMATOLOGY METHOD 12/01/2024 11:33 AM EDT [facility] Neutrophils % 9 % LAB HEMATOLOGY METHOD 12/01/2024 11:33 AM EDT [facility] Lymphocytes % 84 % LAB HEMATOLOGY METHOD 12/01/2024 11:33 AM EDT [facility] Monocytes % 6 % LAB HEMATOLOGY METHOD 12/01/2024 11:33 AM EDT [facility] Eosinophils % 1 % LAB HEMATOLOGY METHOD 12/01/2024 11:33 AM EDT [facility] Basophils % 0 % LAB HEMATOLOGY METHOD 12/01/2024 11:33 AM EDT [facility] Immature Granulocytes % 0 % LAB HEMATOLOGY METHOD 12/01/2024 11:33 AM EDT [facility] Immature Granulocytes Absolute 0.00 0.00 - 0.06 10*3/uL LAB HEMATOLOGY METHOD 12/01/2024 11:33 AM EDT [facility] Neutrophils Absolute 0.06(LL) 1.60 - 6.10 10*3/uL LAB HEMATOLOGY METHOD 12/01/2024 11:33 AM EDT [facility] Lymphocytes Absolute 0.59(L) 1.20 - 3.90 10*3/uL LAB HEMATOLOGY METHOD 12/01/2024 11:33 AM EDT [facility] Monocytes Absolute 0.04(L) 0.30 - 0.90 10*3/uL LAB HEMATOLOGY METHOD 12/01/2024 11:33 AM EDT [facility] Basophils Absolute 0.00 0.00 - 0.10 10*3/uL LAB HEMATOLOGY METHOD 12/01/2024 11:33 AM EDT [facility] Eosinophils Absolute 0.01 0.00 - 0.50 10*3/uL LAB HEMATOLOGY METHOD 12/01/2024 11:33 AM EDT [facility] Blood Venous blood specimen / Unknown Venipuncture / Unknown 12/01/2024 9:39 AM EDT 12/01/2024 9:56 AM EDT us Virgen Vargas MD LAB BLOOD ORDERABLES Final Re sult [facility] [address] [place] [address] * Protime-INR (11/26/2024 10:51 AM EDT) Prothrombin Time 13.8 12.0 - 14.3 sec LAB COAGULATION METHOD 11/26/2024 11:52 AM EDT [facility] INR 1.1 0.9 - 1.1 LAB COAGULATION METHOD 11/26/2024 11:52 AM EDT [facility] Blood Venous blood specimen / Unknown Venipuncture / Unknown 11/26/2024 10:51 AM EDT 11/26/2024 10:51 AM EDT Narrative [facility] - 11/26/2024 11:52 AM EDT OPTIMAL INR RANGES FOR PATIENT ON ORAL ANTICOAGULANT THERAPY Prevention of venous thromboembolism INR 2.0 to 3.0 In patients with heart disease: Atrial fibrillation INR 2.0 to 3.0 Valvular heart disease INR 2.0 to 3.0 Tissue heart valves INR 2.0 to 3.0 Mechanical prosthetic valves INR 2.5 to 3.5 Prevention of recurrent NE INR 2.5 to 3.5 us Latoya Nunez GRADUATION COACH LAB BLOOD ORDERABLES Final R esult Performing Organization Address City/State/[facility] Co de Phone Number [facility] [address] [place] [address] * BIOPSY BONE MARROW (11/10/2024 2:00 PM [...] - 899 pg/mL 11/05/2024 11:49 AM EDT [facility] Blood Venous blood specimen / Unknown Venipuncture / Unknown 11/05/2024 11:01 AM EDT 11/05/2024 11:21 AM EDT us Elsa Razo GRADUATION COACH LAB BLOOD ORDERABLES Fin al Result Performing Organization Address [facility]/ZIP Co de Phone Number [facility] [address] [place] [address] * ECG Adult (Now - Performed in your clinic) (11/05/2024 10:10 AM EDT) Only the most recent of2 resultswithin the time period is included. EKG DIAGNOSIS CLASS Normal MUSE ECG Ventricular Rate 71 BPM MUSE ECG Atrial Rate 71 BPM MUSE ECG AK Interval 154 ms MUSE ECG QRSD Interval 80 ms MUSE ECG QT Interval 404 ms MUSE ECG QTC Interval 439 ms MUSE ECG P [place] 45 degrees MUSE ECG R [place] 15 degrees MUSE ECG T Wave [place] 42 degrees MUSE ECG Diagnosis Normal sinus rhythm MUSE ECG Diagnosis Normal ECG MUSE ECG Diagnosis MUSE ECG Diagnosis Confirmed by Orestes Stone ([id number]) on 11/05/2024 10:19:58 AM MUSE ECG 11/05/2024 10:1 0 AM EDT 11/05/2024 10:19 AM EDT Elsa Razo APRN ECG ORDERABLES Final Re sult Performing Organization Address [facility] Co de Phone Number MUSE ECG * Urine Cross Panel (11/03/2024 4:05 PM EDT) Extra Reflex urine culture not indicated 11/04/2024 2:02 AM EDT [facility] Comment: Previously prelim verified as [...] MD LAB URINE ORDERABLES Final R esult [facility] [address] [place] [address] * (ABNORMAL) Urinalysis with reflex microscopic (Culture NOT Included) (11/03/2024 4:05 PM EDT) Color, Urine Yellow LAB URINALYSIS - AUTOMATED METHOD 11/03/2024 4:23 PM EDT [facility] Clarity, Urine Clear LAB URINALYSIS - AUTOMATED METHOD 11/03/2024 4:23 PM EDT [facility] Spec [place], Urine 1.018 1.005 - 1.030 LAB URINALYSIS - AUTOMATED METHOD 11/03/2024 4:23 PM EDT [facility] pH, Urine 6.5 5.0 - 8.0 LAB URINALYSIS - AUTOMATED METHOD 11/03/2024 4:23 PM EDT [facility] Protein, Urine 30(A) Negative mg/dL LAB URINALYSIS - AUTOMATED METHOD 11/03/2024 4:23 PM EDT [facility] Glucose, Urine Negative Negative mg/dL LAB URINALYSIS - AUTOMATED METHOD 11/03/2024 4:23 PM EDT [facility] Ketones, Urine Negative Negative mg/dL LAB URINALYSIS - AUTOMATED METHOD 11/03/2024 4:23 PM EDT [facility] Blood, Urine Negative Negative LAB URINALYSIS - AUTOMATED METHOD 11/03/2024 4:23 PM EDT [facility] Bilirubin, Urine Negative Negative LAB URINALYSIS - AUTOMATED METHOD 11/03/2024 4:23 PM EDT [facility] Urobilinogen, Urine 2.0(A) 0.2 to 1.0 mg/dL LAB URINALYSIS - AUTOMATED METHOD 11/03/2024 4:23 PM EDT [facility] Leukocytes, Urine Negative Negative LAB URINALYSIS - AUTOMATED METHOD 11/03/2024 4:23 PM EDT [facility] Nitrite, Urine Negative Negative LAB URINALYSIS - AUTOMATED METHOD 11/03/2024 4:23 PM EDT [facility] Urine Urine specimen obtained by clean catch procedure / Unknown Non-blood Collection / Unknown 11/03/2024 4:05 PM EDT 11/03/2024 4:17 PM EDT us Tati Fam MD LAB URINE ORDERABLES Final R esult [facility] [address] [place] [address] * CT Head wo IV Contrast (11/03/2024 [...] at day 5 11/08/2024 4:01 PM EDT [facility] Blood Structure of antecubital vein / Unknown Venipuncture / Unknown 11/03/2024 3:24 PM EDT 11/03/2024 3:47 PM EDT Narrative [facility] - 11/08/2024 4:01 PM EDT Low blood volume submitted, results may be compromised us Tati Fam MD LAB MICROBIOLOGY - GENERAL O RDERABLES Final Result [facility] [address] [place] [address] * XR Chest 1 View (11/03/2024 3:00 [...] for all analytes 11/03/2024 5:17 PM EDT [facility] Swab Nasopharyngeal structure / Unknown Non-blood Collection / Unknown 11/03/2024 2:59 PM EDT 11/03/2024 3:17 PM EDT Narrative [facility] - 11/03/2024 5:17 PM EDT [...] Respiratory PCR Panel is performed using the [employer] ePlex instrument. This test is FDA approved for use with Nasopharyngeal swabs only. This test is used for clinical purposes. It should not be regarded as investigational or for research. The [facility] Clinical Microbiology Laboratory is certified under the Clinical Laboratory Improvement Amendments of 1988 (CLIA-88) as qualified to perform high complexity clinical laboratory testing. Tati Fam MD LAB MICROBIOLOGY - GENERAL O RDERABLES Final Result Performing Organization Address [facility]/[place] [address] * Lactic acid, venous (11/03/2024 2:25 PM EDT) Lactate, Venous, Whole Blood 0.9 0.5 - 2.2 mmol/L LAB HEMATOLOGY METHOD 11/03/2024 2:38 PM EDT [facility] Blood Venous blood specimen / Unknown Venipuncture / Unknown 11/03/2024 2:25 PM EDT 11/03/2024 2:36 PM EDT Result [facility] Tati Fam MD LAB BLOOD ORDERABLES Final R esult Performing Organization Address [facility] [place] [address] * Hepatitis C Antibody w/Reflex to HCV Quant PCR (09/29/2024 12:51 PM EDT) Hepatitis C Antibody Negative Negative 09/29/2024 2:06 PM EDT [facility] Blood Venous blood specimen / Unknown Venipuncture / Unknown 09/29/2024 12:51 PM EDT 09/29/2024 1:22 PM EDT Virgen Vargas MD LAB BLOOD ORDERABLES Final Re sult Performing Organization Address City/[facility]/ZIP Co de Phone Number [facility] [address] [place] [address] from Last 3 Months or Most Recently Relevant to Health Maintenance Insurance [employer] Care Teams Ict Business Analyst Relationship Specialty Start Date End Date Zhao Harris MD [address] [place] [address] PCP - General 12/03/20
--- OUTSIDE RECORDS SUMMARY | 2025-01-20 08:39 | XMS_ITS | Encounter Summary ---
Author Organization [facility] Address [address] [place] [address] Care Team Providers Care Roof Bolter Name Role Phone Zhao Harris MD Primary Care Provider [phone] Encounter Details Date Type Department Care Team ([facility] st Contact Info) Description 11/05/2024 Results Follow-Up Pav CC Head, Neck & Respiratory [address] [facility] [place] [address] Elsa Razo, ASSIGNMENT EDITOR [address] [place] [address] Social History Tobacco Use Types Packs/Day Years [...] drink first t manav in the morning (EYE-PANTOGRAPH II ENGRAVER) to steady your nerves or to get [...] Appointment [facility] A Interventional Radiology [address] [place] [address] 02/10/2025 8:30 AM EDT Clinical Support [facility] Hematology/BMT and Cellular Therapy Program [address] [phone] 02/10/2025 9:00 AM EDT Office Visit [facility] Hematology[facility] Cellular Therapy [facility] [address] [phone] Elaina Boss, ARAM [address] [facility] [address] [place] [phone] 02/10/2025 10:30 AM EDT Appointment [facility] In[facility] 1 [address] [place] [address] 02/11/2025 2:00 PM EDT Appointment [facility] 1 [address] [place] [address] 02/12/2025 2:00 PM EDT Appointment [facility] 1 [address] [place] [address] 02/13/2025 2:00 PM EDT Appointment [facility] 1 [address] [place] [address] 02/14/2025 2:00 PM EDT Appointment [facility] 1 [address] [place] [address] 03/10/2025 8:30 AM EDT Clinical Support [facility] CC Hematology/BMT and Cellular Therapy Program [address] [phone] 03/10/2025 9:00 AM EDT Office Visit [facility] CC Hematology/BMT and Cellular Therapy Program [address] [phone] Isaura Wynn, ASSIGNMENT EDITOR [address] [facility] [address] [place] [phone] 03/10/2025 11:20 AM EDT Office Visit Pav CC Head, Neck & Respiratory [address] [facility] [place] [address] Elsa Razo, ASSIGNMENT EDITOR [address] [place] [phone] documented as of this encounter Visit Diagnoses [...] documented as of this encounter Care Teams Roof Bolter Relationship Specialty Start Date End Date Zhao Harris MD [address] [place] [address] PCP - General 12/03/20 documented as of this encounter
--- OUTSIDE RECORDS SUMMARY | 2025-01-20 08:39 | XMS_ITS | Encounter Summary ---
Author Organization [facility] Address [address] [place] [address] Care Team Providers Care Farmer Cash Grain Name Role Phone Zhao Harris MD Primary Care Provider + [phone] Encounter Details Date Type Department Care Team ([facility] st Contact Info) Description 11/19/2024 Orders Only [facility] CC Hematology/BMT and Cellular Therapy Program [address] [place] [address] [place] [address] Adam Conway RN [facility] HEMATOLOGY [facility]INIC Myelodysplasia (myelodysplastic syndrome) [...] first t manav in the morning (EYE-HIGH DENSITY PRESS LABORER) to steady your nerves or to [...] P[facility] A Interventional Radiology [address] [place] [address] 02/10/2025 8:30 AM EDT Clinical Support P[facility] Hematology/BMT and Cellular Therapy Program [address] [address] 02/10/2025 9:00 AM EDT Office Visit [facility] Hematology/BMT and Cellular Therapy Program [address] [address] Elaina Boss, PA 800 [facility] [address] [place] [address] 02/10/2025 10:30 AM EDT Appointment [facility] Infusion Clinic [address] [place] [address] 02/11/2025 2:00 PM EDT Appointment [facility] Infusion [facility] 1 [address] [place] [address] 02/12/2025 2:00 PM EDT Appointment [facility]fusion [facility] 1 [address] [place] [address] 02/13/2025 2:00 PM EDT Appointment [facility] Infusion [facility] 1 [address] [place] [address] 02/14/2025 2:00 PM EDT Appointment [facility] Infusion [facility] 1 [address] [place] [address] 03/10/2025 8:30 AM EDT Clinical Support [facility] CC Hematology/BMT and Cellular Therapy Program 750 [facility] [place] [address] 03/10/2025 9:00 AM EDT Office Visit [facility] CC Hematology/BMT and Cellular Therapy Program 750 [facility] [place] [address] Isaura Wynn, SENIOR COMPENSATION CONSULTANT 800 [facility] [address] [place] [address] 03/10/2025 11:20 AM EDT Office Visit Pav CC Head, Neck & Respiratory 800 [facility], 2nd [place] [address] Elsa Razo, SENIOR COMPENSATION CONSULTANT [address] [place] [address] Scheduled Orders Name Type Priority Associated Diagnoses Orde r Schedule Comprehensive Metabolic Panel, Plasma Lab Routine Myelodysplasia (myelodysplastic syndrome) (CMS/HCC) 3x week & PRN for 999 Occurrences starting 11/19/2024 until 05/21/2026, 3 completed CBC and Differential Lab Routine Myelodysplasia (myelodysplastic syndrome) (CMS/HCC) 3x week & PRN for 999 Occurrences starting 11/19/2024 until 05/21/2026, 2 completed documented as of this encounter Results * (ABNORMAL) CBC and Differential (01/14/2025 9:06 AM EDT) [facility] Signature WBC Count 0.54(LL) 3.70 - 10.30 10*3/uL LAB HEMATOLOGY METHOD 01/14/2025 10:14 AM EDT [facility] RBC Count 2.75(L) 4.60 - 6.10 10*6/uL LAB HEMATOLOGY METHOD 01/14/2025 10:14 AM EDT [facility] HGB 8.2(L) 13.7 - 17.5 g/dL LAB HEMATOLOGY METHOD 01/14/2025 10:14 AM EDT [facility] HCT 23.2(L) 40.0 - 51.0 % LAB HEMATOLOGY METHOD [facility]/14[facility]25 [facility] Platelet Count 21(L) 155 - 369 10*3/uL LAB HEMATOLOGY METHOD 01/14/2025 10:14 AM EDT [facility] MCV 84 79 - 98 fL LAB HEMATOLOGY METHOD 01/14/2025 10:14 AM EDT [facility] MCH 29.8 26.0 - 32.0 pg LAB HEMATOLOGY METHOD 01/14/2025 10:14 AM EDT [facility] MCHC 35.3 30.7 - 35.5 g/dL LAB HEMATOLOGY METHOD 01/14/2025 10:14 AM EDT [facility] RDW 14.3 11.5 - 14.5 % LAB HEMATOLOGY METHOD 01/14/2025 10:14 AM EDT [facility] MPV 8.1(L) 8.8 - 12.5 fL LAB HEMATOLOGY METHOD 01/14/2025 10:14 AM EDT [facility] nRBC 0.0 <=0.0 per 100 WBCs LAB HEMATOLOGY METHOD 01/14/2025 10:14 [facility] Differential Type Automated LAB HEMATOLOGY METHOD 01/14/2025 10:14 AM [place] [facility] Neutrophils % 4 % LAB HEMATOLOGY METHOD 01/14/2025 10:14 [facility] Lymphocytes % 92 % LAB HEMATOLOGY METHOD 01/14/2025 10:14 AM EDT [facility] Monocytes % 4 % LAB HEMATOLOGY METHOD 01/14/2025 10:14 [facility] Eosinophils % 0 % LAB HEMATOLOGY METHOD 01/14/2025 10:14 AM EDT [facility] Basophils % 0 % LAB HEMATOLOGY METHOD 01/14/2025 10:14 AM EDT [facility] Immature Granulocytes % 0 % LAB HEMATOLOGY METHOD 01/14/2025 10:14 AM EDT [facility] Neutrophils Absolute 0.02(LL) 1.60 - 6.10 10*3/uL LAB HEMATOLOGY METHOD 01/14/2025 10:14 AM EDT [facility] Lymphocytes Absolute 0.50(L) 1.20 - 3.90 10*3/uL LAB HEMATOLOGY METHOD 01/14/2025 10:14 AM EDT [facility] Monocytes Absolute 0.02(L) 0.30 - 0.90 10*3/uL LAB HEMATOLOGY METHOD 01/14/2025 10:14 AM EDT [facility] Eosinophils Absolute 0.00 0.00 - 0.50 10*3/uL LAB HEMATOLOGY METHOD 01/14/2025 10:14 AM EDT [facility] Basophils Absolute 0.00 0.00 - 0.10 10*3/uL LAB HEMATOLOGY METHOD 01/14/2025 10:14 AM EDT [facility] Immature Granulocytes Absolute 0.00 0.00 - 0.06 10*3/uL LAB HEMATOLOGY METHOD 01/14/2025 10:14 AM EDT [facility] Blood Blood sample taken from central line / Unknown (Port) Long-term Catheter / Unknown 01/14/2025 9:06 AM EDT 01/14/2025 9:14 AM EDT Narrative [facility]ALTH[facility]ARE LAB - 01/14/2025 10:14 AM EDT Therapeutic decision making should be based on absolute values, rather than percentages. us Virgen Vargas MD LAB BLOOD ORDERABLES Final Re sult [facility] [address] [place] [address] * (ABNORMAL) Comprehensive Metabolic Panel, Plasma (12/18/2024 9:14 AM EDT) Glucose, Plasma 108(H) 74 - 99 mg/dL 12/18/2024 9:51 AM EDT [facility] BUN, Plasma 10 8 - 23 mg/dL 12/18/2024 9:51 AM EDT [facility] Creatinine, Plasma 0.80 0.70 - 1.20 mg/dL 12/18/2024 9:51 AM EDT [facility] BUN/Creatinine Ratio 13 12/18/2024 9:51 AM EDT [facility] Sodium, Plasma 139 136 - 145 mmol/L 12/18/2024 9:51 AM EDT [facility] Potassium, Plasma 4.4 3.6 - 4.9 mmol/L 12/18/2024 9:51 AM EDT [facility] Chloride, Plasma 108(H) 97 - 107 mmol/L 12/18/2024 9:51 AM EDT [facility] CO2, Plasma 22 22 - 29 mmol/L 12/18/2024 9:51 AM EDT [facility] Anion Gap 9 6 - 16 mmol/L 12/18/2024 9:51 AM EDT [facility] Total Calcium, Plasma 8.8(L) 8.9 - 10.2 mg/dL 12/18/2024 9:51 AM EDT [facility] Total Protein 6.8 6.3 - 7.9 g/dL 12/18/2024 9:51 AM EDT [facility] Albumin, Plasma 3.9 3.5 - 5.2 g/dL 12/18/2024 9:51 AM EDT [facility] AST, Plasma 16 10 - 50 U/L 12/18/2024 9:51 AM EDT [facility] ALT, Plasma 16 10 - 50 U/L 12/18/2024 9:51 AM EDT [facility] Alkaline Phosphatase, Plasma 83 40 - 115 U/L 12/18/2024 9:51 AM EDT [facility] Total Bilirubin, Plasma 0.6 0.2 - 1.1 mg/dL 12/18/2024 9:51 AM EDT [facility] eGFRcr 95.8 mL/min/1.7 3m*2 12/18/2024 9:51 AM EDT [facility] Comment:Reported eGFRcr in m L/min/1.73m2 is based the CKD-EPI 2020 equation that does not use a race coefficient. Blood Blood sample taken from central line / Unknown Venipuncture / Unknown 12/18/2024 9:14 AM EDT 12/18/2024 9:20 AM EDT us Virgen Vargas MD LAB BLOOD ORDERABLES Final Re sult [facility] [address] [place] [address] * (ABNORMAL) CBC and Differential (11/24/2024 2:07 PM EDT) WBC Count 0.76(LL) 3.70 - 10.30 10*3/uL LAB HEMATOLOGY METHOD 11/24/2024 2:44 PM EDT [facility] RBC Count 2.37(L) 4.60 - 6.10 10*6/uL LAB HEMATOLOGY METHOD 11/24/2024 2:44 PM EDT [facility] HGB 8.0(L) 13.7 - 17.5 g/dL LAB HEMATOLOGY METHOD 11/24/2024 2:44 PM EDT [facility] HCT 22.3(L) 40.0 - 51.0 % LAB HEMATOLOGY METHOD 11/24/2024 2:44 PM EDT [facility] Platelet Count 12(LL) 155 - 369 10*3/uL LAB HEMATOLOGY METHOD 11/24/2024 2:44 PM EDT [facility] MCV 94 79 - 98 fL LAB HEMATOLOGY METHOD 11/24/2024 2:44 PM EDT [facility] MCH 33.8(H) 26.0 - 32.0 pg LAB HEMATOLOGY METHOD 11/24/2024 2:44 PM EDT [facility] MCHC 35.9(H) 30.7 - 35.5 g/dL LAB HEMATOLOGY METHOD 11/24/2024 2:44 PM EDT [facility] RDW 18.8(H) 11.5 - 14.5 % LAB HEMATOLOGY METHOD 11/24/2024 2:44 PM EDT [facility] MPV LAB HEMATOLOGY METHOD 11/24/2024 2:44 PM EDT [facility] Comment:Not Measured nRBC 0.0 <=0.0 per 100 WBCs LAB HEMATOLOGY METHOD 11/24/2024 2:44 PM EDT [facility] Differential Type Automated LAB HEMATOLOGY METHOD 11/24/2024 2:44 PM EDT [facility] Neutrophils % 16 % LAB HEMATOLOGY METHOD 11/24/2024 2:44 PM EDT [facility] Lymphocytes % 79 % LAB HEMATOLOGY METHOD 11/24/2024 2:44 PM EDT [facility] Monocytes % 4 % LAB HEMATOLOGY METHOD 11/24/2024 2:44 PM EDT [facility] Eosinophils % 1 % LAB HEMATOLOGY METHOD 11/24/2024 2:44 PM EDT [facility] Basophils % 0 % LAB HEMATOLOGY METHOD 11/24/2024 2:44 PM EDT [facility] Immature Granulocytes % 0 % LAB HEMATOLOGY METHOD 11/24/2024 2:44 PM EDT [facility] Neutrophils Absolute 0.12(LL) 1.60 - 6.10 10*3/uL LAB HEMATOLOGY METHOD 11/24/2024 2:44 PM EDT [facility] Lymphocytes Absolute 0.60(L) 1.20 - 3.90 10*3/uL LAB HEMATOLOGY METHOD 11/24/2024 2:44 PM EDT [facility] Monocytes Absolute 0.03(L) 0.30 - 0.90 10*3/uL LAB HEMATOLOGY METHOD 11/24/2024 2:44 PM EDT [facility] Eosinophils Absolute 0.01 0.00 - 0.50 10*3/uL LAB HEMATOLOGY METHOD 11/24/2024 2:44 PM EDT [facility] Basophils Absolute 0.00 0.00 - 0.10 10*3/uL LAB HEMATOLOGY METHOD 11/24/2024 2:44 PM EDT [facility] Immature Granulocytes Absolute 0.00 0.00 - 0.06 10*3/uL LAB HEMATOLOGY METHOD 11/24/2024 2:44 PM EDT [facility] Blood Venous blood specimen / Unknown Venipuncture / Unknown 11/24/2024 2:07 PM EDT 11/24/2024 2:13 PM EDT Narrative [facility] - 11/24/2024 2:44 PM EDT Therapeutic decision making should be based on absolute values, rather than percentages. us Virgen Vargas MD LAB BLOOD ORDERABLES Final Re sult [facility] [address] [place] [address] * Comprehensive Metabolic Panel, Plasma (11/24/2024 2:07 PM EDT) Glucose, Plasma 97 74 - 99 mg/dL 11/24/2024 3:44 PM EDT [facility] BUN, Plasma 13 8 - 23 mg/dL 11/24/2024 3:44 PM EDT [facility] Creatinine, Plasma 0.97 0.70 - 1.20 mg/dL 11/24/2024 3:44 PM EDT [facility] BUN/Creatinine Ratio 13 11/24/2024 3:44 PM EDT [facility] Sodium, Plasma 138 136 - 145 mmol/L 11/24/2024 3:44 PM EDT [facility] Potassium, Plasma 3.7 3.6 - 4.9 mmol/L 11/24/2024 3:44 PM EDT [facility] Chloride, Plasma 107 97 - 107 mmol/L 11/24/2024 3:44 PM EDT [facility] CO2, Plasma 22 22 - 29 mmol/L 11/24/2024 3:44 PM EDT [facility] Anion Gap 9 6 - 16 mmol/L 11/24/2024 3:44 PM EDT [facility] Total Calcium, Plasma 9.5 8.9 - 10.2 mg/dL 11/24/2024 3:44 PM EDT [facility] Total Protein 6.7 6.3 - 7.9 g/dL 11/24/2024 3:44 PM EDT [facility] Albumin, Plasma 3.8 3.5 - 5.2 g/dL 11/24/2024 3:44 PM EDT [facility] AST, Plasma 18 10 - 50 U/L 11/24/2024 3:44 PM EDT [facility] ALT, Plasma 20 10 - 50 U/L 11/24/2024 3:44 PM EDT [facility] Alkaline Phosphatase, Plasma 71 40 - 115 U/L 11/24/2024 3:44 PM EDT [facility] Total Bilirubin, Plasma 0.7 0.2 - 1.1 mg/dL 11/24/2024 3:44 PM EDT [facility] eGFRcr 84.5 mL/min/1.7 3m*2 11/24/2024 3:44 PM EDT [facility] Comment:Reported eGFRcr in m L/min/1.73m2 is based the CKD-EPI 2020 equation that does not use a race coefficient. Blood Venous blood specimen / Unknown Venipuncture / Unknown 11/24/2024 2:07 PM EDT 11/24/2024 2:44 PM EDT us Virgen Vargas MD LAB BLOOD ORDERABLES Final Re sult [facility] [address] [place] [address] * (ABNORMAL) Comprehensive Metabolic Panel, Plasma (11/20/2024 1:49 PM EDT) Pathologist [facility] Glucose, Plasma 100(H) 74 - 99 mg/dL 11/20/2024 2:45 PM EDT [facility] BUN, Plasma 11 8 - 23 mg/dL 11/20/2024 2:45 PM EDT [facility] Creatinine, Plasma 1.01 0.70 - 1.20 mg/dL 11/20/2024 2:45 PM EDT [facility] BUN/Creatinine Ratio 11 11/20/2024 2:45 PM EDT [facility] Sodium, Plasma 135(L) 136 - 145 mmol/L 11/20/2024 2:45 PM EDT [facility] Potassium, Plasma 4.1 3.6 - 4.9 mmol/L 11/20/2024 2:45 PM EDT [facility] Chloride, Plasma 106 97 - 107 mmol/L 11/20/2024 2:45 PM EDT [facility] CO2, Plasma 21(L) 22 - 29 mmol/L 11/20/2024 2:45 PM EDT [facility] Anion Gap 8 6 - 16 mmol/L 11/20/2024 2:45 PM EDT [facility] Total Calcium, Plasma 9.1 8.9 - 10.2 mg/dL 11/20/2024 2:45 PM EDT [facility] Total Protein 6.7 6.3 - 7.9 g/dL 11/20/2024 2:45 PM EDT [facility] Albumin, Plasma 3.9 3.5 - 5.2 g/dL 11/20/2024 2:45 PM EDT [facility] AST, Plasma 26 10 - 50 U/L 11/20/2024 2:45 PM EDT [facility] ALT, Plasma 43 10 - 50 U/L 11/20/2024 2:45 PM EDT [facility] Alkaline Phosphatase, Plasma 71 40 - 115 U/L 11/20/2024 2:45 PM EDT [facility] Total Bilirubin, Plasma 0.7 0.2 - 1.1 mg/dL 11/20/2024 2:45 PM EDT [facility] eGFRcr 80.5 mL/min/1.7 3m*2 11/20/2024 2:45 PM EDT [facility] Comment:Reported eGFRcr in m L/min/1.73m2 is based the CKD-EPI 2020 equation that does not use a race coefficient. Blood Venous blood specimen / Unknown Venipuncture / Unknown 11/20/2024 1:49 PM EDT 11/20/2024 2:13 PM EDT us Virgen Vargas MD LAB BLOOD ORDERABLES Final Re sult [facility] [address] [place] [address] documented in this encounter Visit Diagnoses Diagnosis [...] documented as of this encounter Care Teams Farmer Cash Grain Relationship Specialty Start Date End Date Zhao Harris MD [address] [place] [address] PCP - General 12/03/20 documented as of this encounter
--- OUTSIDE RECORDS SUMMARY | 2025-01-20 08:39 | XMS_ITS | Referral Summary ---
Author Organization [employer] ([place], [place], [place], [place]) Address [address] [place] [id number] Care Team Providers Care Green Jobs Trainer Name Role Phone Unavailable Primary Care Provider [...]
--- OUTSIDE RECORDS SUMMARY | 2025-01-20 08:39 | XMS_ITS | Encounter Summary ---
Author Organization [employer] ([place], [place], [place], [place]) Address [address] [place] [address] Care Team Providers Care Grape Grower Name Role Phone Unavailable Primary Care Provider Unavailabl e Encounter Details Date Type Department Care Team (Late st Contact Info) Description 07/10/2019 Transcribed Document [facility] Family Medicine [address] [place] [address] ProviderBrigida MD [address] [place] [address] Social History Tobacco Use Types [...] - Historical ProviderMD - 07/10/2019 9:45 AM MOLD SHIFTER Event Note Entered On: 07/10/2019 11:04 EST Performed On: 07/10/2019 9:45 EST by Laquita Romero RN Event Note Event Date/Time : 07/10/2019 9:45 EST Event Location : Other: post-op Description of Event : Pt informed that next dose of [place] pain medication due @ 3:45pm today instead of 3:30pm. Laquita Romero RN - 07/10/2019 11:02 EST Electronically signed by Katlin Maldonado Conversion Automobile Upholsterer Apprentice Cerner at 11/06/2022 6:14 PM CDT documented in this encounter Plan of Treatment Not on file documented as of this encounter Visit Diagnoses Not on filedocumented in this encounter
--- OUTSIDE RECORDS SUMMARY | 2025-01-20 08:39 | XMS_ITS | Clinical Summary ---
Author Organization [employer] ([place], [place], [place], [place]) Address [address] [place] [address] Care Team Providers Care Program Analyst Name Role Phone Unavailable Primary Care Provider [...]
--- OUTSIDE RECORDS SUMMARY | 2025-01-20 08:39 | XMS_ITS | Encounter Summary ---
Author Organization [employer] ([place], [place], [place], [place]) Address [address] [place] [address] Care Team Providers Care Accounting File Clerk Name Role Phone Unavailable Primary Care Provider Unavailabl e Encounter Details Date Type Department Care Team (Late st Contact Info) Description 07/10/2019 Transcribed Document [facility] Family Medicine [address] [place] [address] ProviderBrigida MD [address] [place] [address] Social History Tobacco Use Types [...] - Brigida ProviderMD - 07/10/2019 7:57 AM MATTRESS AND BOXSPRINGS SUPERVISOR [facility] Main OR PreOp Summary Primary Physician: SURY SHARMA MD-ORT Finalized Date/Time: 07/21/19 08:13:07 Pt. Name: HUGO AGUILAR JR, D.O.B./Sex: 1955 Male Med Rec #: [id number] Physician: SURY SHARMA MD-ORT Financial #: [id number] Pt. Type: O Room/Bed: Admit/Disch: 07/10/19 05:55:00 - 07/10/19 10:00:00 Institution: [facility] PreOp Case Times Entry 1 In Preop 07/10/19 06:10:00 Ready for Holding n/a Room Patient Ready for 07/10/19 07:19:00 Surgery Patient Out of Preop 07/10/19 07:35:00 Patient Out of n/a Holding Room Last Modified By: REAL SEVILLA 07/21/19 08:13:06 SJDiane PreOp Case Times Audit 07/21/19 08:13:06 Entry Level Drafter: FAY Modifier: [email or web address] <+> 1 Patient Out of Preop Finalized By: REAL SEVILLA Document Signatures Signed By: REAL SEVILLA 07/21/19 08:13 documented in this encounter Plan of Treatment Not on file documented as of this encounter Visit Diagnoses Not on filedocumented in this encounter
--- OUTSIDE RECORDS SUMMARY | 2025-01-20 08:39 | XMS_ITS | Encounter Summary ---
Author Organization [employer] ([place], [place], [place], [place]) Address [address] [place] [address] Care Team Providers Care Senior Controls Technician Name Role Phone Unavailable Primary Care Provider Unavailabl e Encounter Details Date Type Department Care Team (Late st Contact Info) Description 07/10/2019 Transcribed Document [facility] Family Medicine [address] [place] [address] ProviderBrigida MD [address] [place] [address] Social History Tobacco Use Types [...] Note - Brigida Vega MD - 07/10/2019 7:04 AM INTERNAL MEDICINE VETERINARY TECHNICIAN Patient: HUGO AGUILAR JR Age: 63 years Sex: Male : 1955 Associated Diagnoses: None Author: DWAYNE SHARMA MD-ORT HISTORY AND PHYSICAL DATE: Patient: Hugo Aguilar Date of : 1955 Patient Number: [id number] History of Present Illness Hugo is here [...]
--- OUTSIDE RECORDS SUMMARY | 2025-01-20 08:39 | XMS_ITS | Encounter Summary ---
Author Organization [facility] Address [address] [place] [address] Care Team Providers Care Fur Dry Cleaner Name Role Phone Zhao Harris MD Primary Care Provider [phone] Encounter Details Date Type Department Care Team [...] first t manav in the morning (EYE-INSPECTOR AND CLERK) to steady your nerves or to [...] Upcoming Encounters Date Type Department Care Team ([facility] Contact Info) Description 02/02/2025 11:00 AM EDT Appointment [facility] A Interventional Radiology [address] [place] [address] 02/10/2025 8:30 AM EDT Clinical Support [facility] CC Hematology/BMT and Cellular Therapy Program [address] [place] [address] [place] [address] 02/10/2025 9:00 AM EDT Office Visit [facility] CC Hematology/BMT and Cellular Therapy Program [address] [place] [phone] Elaina Boss, PA [address] [facility] [address] [place] [phone] 02/10/2025 10:30 AM EDT Appointment [facility] Infusion Clinic [address] [place] [address] 02/11/2025 2:00 PM EDT Appointment [facility] Infusion [facility] [address] [place] [address] 02/12/2025 2:00 PM EDT Appointment [facility] Infusion [facility] [address] [place] [address] 02/13/2025 2:00 PM EDT Appointment [facility] Infusion [facility] [address] [place] [address] 02/14/2025 2:00 PM EDT Appointment [facility] Infusion [facility] [address] [place] [address] 03/10/2025 8:30 AM EDT Clinical Support [facility] CC Hematology/BMT and Cellular Therapy Program [address] [place] [address] [place] [address] 03/10/2025 9:00 AM EDT Office Visit [facility] CC Hematology/BMT and Cellular Therapy Program [address] [place] [address] [place] [phone] Isaura Wynn, BILL CHECKER 800 [facility] [address] [place] [address] 03/10/2025 11:20 AM EDT Office Visit Pav CC Head, Neck & Respiratory [address] [facility], [address]nd [place] [address] Elsa Razo, BILL CHECKER [address] [place] [phone] documented as of this encounter Visit Diagnoses [...] documented as of this encounter Care Teams Fur Dry Cleaner Relationship Specialty Start Date End Date Zhao Harris MD [address] [facility] [address] [place] [address] PCP - General 12/03/20 documented as of this encounter
--- OUTSIDE RECORDS SUMMARY | 2025-01-20 08:39 | XMS_ITS | Encounter Summary ---
Author Organization [facility] Address [address] [place] [address] Care Team Providers Care Fueler Name Role Phone Zhao Harris MD Primary Care Provider [phone] Encounter Details Date Type Department Care Team [...] drink first t manav in the morning (EYE-QUALITY CONTROL ANALYST) to steady your nerves or to [...] Upcoming Encounters Date Type Department Care Team ([facility] Contact Info) Description 02/02/2025 11:00 AM EDT Appointment PAV A Interventional Radiology [address] [place] [address] 02/10/2025 8:30 AM EDT Clinical Support P[facility] CC Hematology/BMT and Cellular Therapy Program [address] [place] [address] [place] [address] 02/10/2025 9:00 AM EDT Office Visit [facility] CC Hematology/BMT and Cellular Therapy Program [address] [place] [address] Elaina Boss, PA 800 [facility] [address] [place] [address] 02/10/2025 10:30 AM EDT Appointment [facility] 1 [address] [place] [address] 02/11/2025 2:00 PM EDT Appointment [facility] 1 [address] [place] [address] 02/12/2025 2:00 PM EDT Appointment [facility] 1 [address] [place] [address] 02/13/2025 2:00 PM EDT Appointment [facility] 1 [address] [place] [address] 02/14/2025 2:00 PM EDT Appointment [facility] 1 4 [place] [address] 03/10/2025 8:30 AM EDT Clinical Support [facility] CC Hematology/BMT and Cellular Therapy Program [address] [place] [address] [place] [address] 03/10/2025 9:00 AM EDT Office Visit P[facility] CC Hematology/BMT and Cellular Therapy Program [address] [place] [address] [place] [phone] Isaura Wynn, ENDOSCOPY REGISTERED NURSE 800 [facility] [address] [place] [address] 03/10/2025 11:20 AM EDT Office Visit Pav CC Head, Neck & Respiratory 800 [facility], 2nd [place] [address] Elsa Razo, ENDOSCOPY REGISTERED NURSE 800 [place] [address] documented as of this encounter Visit Diagnoses [...] documented as of this encounter Care Teams Fueler Relationship Specialty Start Date End Date Zhao Harris MD 1210 [facility] [address] [place] [address] PCP - General 12/03/20 documented as of this encounter
--- OUTSIDE RECORDS SUMMARY | 2025-01-20 08:39 | XMS_ITS | Encounter Summary ---
Author Organization [facility] Address [address] [place] [address] Care Team Providers Care Operations Vocational Instructor Name Role Phone Zhao Harris MD Primary Care Provider [phone] Encounter Details Date Type Department Care Team [...] first t manav in the morning (EYE-SOFTWARE SUPPORT TECHNICIAN) to steady your nerves or to [...] Encounters Date Type Department Care Team ([facility] Contact Info) Description 02/02/2025 11:00 AM EDT Appointment PAV A Interventional Radiology [address] [place] [address] 02/10/2025 8:30 AM EDT Clinical Support [facility] CC Hematology/BMT and Cellular Therapy Program [address] [place] [address] [place] [address] 02/10/2025 9:00 AM EDT Office Visit [facility] CC Hematology/BMT and Cellular Therapy Program [address] [place] [phone] Elaina Boss, PA 800 [facility] [address] [place] [address] 02/10/2025 10:30 AM EDT Appointment [facility] 1 [address] [place] [address] 02/11/2025 2:00 PM EDT Appointment [facility] 1 [address] [place] [address] 02/12/2025 2:00 PM EDT Appointment [facility] 1 [address] [place] [address] 02/13/2025 2:00 PM EDT Appointment [facility] 1 [address] [place] [address] 02/14/2025 2:00 PM EDT Appointment [facility] 1 4 [place] [address] 03/10/2025 8:30 AM EDT Clinical Support [facility] Hematology/BMT and Cellular Therapy Program [address] [place] [address] [place] [address] 03/10/2025 9:00 AM EDT Office Visit [facility] Hematology/BMT and Cellular Therapy Program [address] [place] [address] [place] [phone] Isaura Wynn, DRAGLINE OPERATOR HELPER 800 [facility] [address] [place] [address] 03/10/2025 11:20 AM EDT Office Visit Pav CC Head, Neck & Respiratory 800 [facility], 2nd [place] [address] Elsa Razo, DRAGLINE OPERATOR HELPER 800 [place] [phone] documented as of this encounter Visit Diagnoses [...] as of this encounter Care Teams Operations Vocational Instructor Relationship Specialty Start Date End Date Zhao Harris MD 1210 [facility] [address] [place] [address] PCP - General 12/03/20 documented as of this encounter
--- OUTSIDE RECORDS SUMMARY | 2025-01-20 08:40 | XMS_ITS | Encounter Summary ---
Author Organization [facility] Address [address] [place] [address] Care Team Providers Care Director Of Casework Services Name Role Phone Zhao Harris MD Primary Care Provider [phone] Encounter Details Date Type Department Care Team (Late st Contact Info) Description 10/15/2024 Lab Requisition PAV H Lab 800 [place] [address] Virgen Vargas MD 800 [facility] [address] [place] [phone] Abnormal finding of blood chemistry, unspecified Social [...] Appointment PAV A Interventional Radiology [address] [place] [address] 02/10/2025 8:30 AM EDT Clinical Support [facility] Hematology/BMT and Cellular Therapy Program [address] [address] 02/10/2025 9:00 AM EDT Office Visit [facility] CC Hematology/BMT and Cellular Therapy Program [address] [phone] Elaina Boss, PA 800 [facility] [address] [place] [phone] 02/10/2025 10:30 AM EDT Appointment [facility] 1 [address] [place] [address] 02/11/2025 2:00 PM EDT Appointment [facility] 1 [address] [place] [address] 02/12/2025 2:00 PM EDT Appointment [facility] 1 [address] [place] [address] 02/13/2025 2:00 PM EDT Appointment [facility] 1 [address] [place] [address] 02/14/2025 2:00 PM EDT Appointment [facility] 1 [address] [place] [address] 03/10/2025 8:30 AM EDT Clinical Support [facility] CC Hematology/BMT and Cellular Therapy Program [address] [place] [address] 03/10/2025 9:00 AM EDT Office Visit PAV Hematology/BMT and Cellular Therapy Program [address] [place] [address] Isaura Wynn, ESTRELLA 800 [facility] [address] [phone] 03/10/2025 11:20 AM EDT Office Visit Pav CC Head, Neck & Respiratory [address], [address]nd [place] [address] Elsa Razo, SENIOR SYSTEMS DEVELOPER 800 [place] [address] documented as of this encounter Procedures Procedure Name Priority Date/Time Associated Diagnosis Comments BONE MARROW EXAM CONSULT Routine 10/15/2024 1:27 PM EDT Abnormal finding of blood chemistry, unspecified documented in this encounter Results * Bone marrow exam consult (10/15/2024 1:27 PM EDT) Case Report Bone Marrow Case: [id number] Authorizing Provider: Virgen Vargas MD Collected: 10/15/2024 1327 Ordering Location: [facility] Lab Received: 10/15/2024 1327 Pathologist: Marhta Lopez MD Specimen: Bone Marrow Aspirate, [id number] 10/16/2024 2:02 PM EDT [facility] Final Diagnosis A. BONE MARROW ASPIRATE AND BIOPSY (OUTSIDE SLIDES [id number], 09/19/2024): - NORMOCELLULAR BONE MARROW WITH DYSPOIESIS [...] trabeculae are unremarkable. 10/16/2024 2:02 PM EDT [facility] Flow Cytometry Interpretation Outside flow cytometry showed 17% myeloblasts expressing CD34, CD117, partial CD 38, partial CD7, HLA-DR, CD13 and variable CD33. 10/16/2024 2:02 PM EDT [facility] CYTOGENETICS/MOL ECULAR INTERPRETATION Cytogenetic analysis showed normal male karyotype. No FLT3 duplication or mutation was identified, and no NPM1 mutation was identified. 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 10/16/2024 2:02 PM EDT [facility] Gross Description A. [id number] Received along with a corresponding pathology report from [facility]ology [facility] Cytology Laboratory are 12 slides labeled outside case: [id number] collected on 09/19/2024. 10/16/2024 2:02 PM EDT [facility] Bone Marrow Specimen from bone marrow obtained by aspiration / Unknown 10/15/2024 1:27 PM EDT 10/15/2024 1:27 PM EDT us Virgen Vargas MD LAB PATHOLOGY ORDERABLES Terri lara Result [facility] 800 [place] [address] documented in this encounter Visit Diagnoses Diagnosis [...] as of this encounter Care Teams Director Of Casework Services Relationship Specialty Start Date End Date Zhao Harris MD [address] [place] [address] PCP - General 12/03/20 documented as of this encounter
--- OUTSIDE RECORDS SUMMARY | 2025-01-20 08:40 | XMS_ITS | Encounter Summary ---
Author Organization [facility] Address [address] 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 [place] [phone] 02/10/2025 9:00 AM EDT Office Visit PAV Hematology/BMT and Cellular Therapy Program [address] [phone] Elaina Boss, PA 800 [facility] [address] [place] [phone] 02/10/2025 10:30 AM EDT Appointment [facility]fusion [facility] 1 [address] [place] [address] 02/11/2025 2:00 PM EDT Appointment [facility] 1 [address] [place] [address] 02/12/2025 2:00 PM EDT Appointment [facility] 1 [address] [place] [address] 02/13/2025 2:00 PM EDT Appointment [facility] 1 [address] [place] [address] 02/14/2025 2:00 PM EDT Appointment [facility] 1 [address] [place] [address] 03/10/2025 8:30 AM EDT Clinical Support PAV Hematology/BMT and Cellular Therapy Program [address] [phone] 03/10/2025 9:00 AM EDT Office Visit PAV Hematology/BMT and Cellular Therapy Program [address] [phone] Isaura Wynn, SIGN OUT CLERK 800 [facility] [address] [place] [phone] 03/10/2025 11:20 AM EDT Office Visit Pav Head, Neck & Respiratory 800 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
--- OUTSIDE RECORDS SUMMARY | 2025-01-20 08:40 | XMS_ITS | Encounter Summary ---
Author Organization [facility] Address [address] [place] [address] Care Team Providers Care Clinical Laboratory Manager Name Role Phone Zhao Harris MD Primary Care Provider [phone] Encounter Details Date Type Department Care Team [...] drink first t manav in the morning (EYE-BICYCLE II ASSEMBLER) to steady your nerves or to [...] Upcoming Encounters Date Type Department Care Team ([facility] st Contact Info) Description 02/02/2025 11:00 AM EDT Appointment PAV A Interventional Radiology [address] [place] [address] 02/10/2025 8:30 AM EDT Clinical Support P[facility] CC Hematology/BMT and Cellular Therapy Program [address] [place] [address] 02/10/2025 9:00 AM EDT Office Visit P[facility] CC Hematology/BMT and Cellular Therapy Program [address] [place] [phone] Elaina Boss, PA 800 [facility] [address] [place] [address] 02/10/2025 10:30 AM EDT Appointment [facility] Infusion [facility] 1 744 [place] [address] 02/11/2025 2:00 PM EDT Appointment [facility] Infusion [facility] 1 [address] [place] [address] 02/12/2025 2:00 PM EDT Appointment [facility] 1 [address] [place] [address] 02/13/2025 2:00 PM EDT Appointment [facility]fusion [facility] 1 [address] [place] [address] 02/14/2025 2:00 PM EDT Appointment [facility] 1 [address] [place] [address] 03/10/2025 8:30 AM EDT Clinical Support P[facility] Hematology/BMT and Cellular Therapy Program [address] [place] [address] 03/10/2025 9:00 AM EDT Office Visit P[facility] CC Hematology/BMT and Cellular Therapy Program [address] [place] [address] Isaura Wynn, LEAD HANDLER 800 [facility] 1st [place] [address] 03/10/2025 11:20 AM EDT Office Visit Pav CC Head, Neck & Respiratory 800 [facility], 2nd [place] [address] Elsa Razo, LEAD HANDLER 800 [place] [phone] documented as of this encounter Visit Diagnoses [...] documented as of this encounter Care Teams Clinical Laboratory Manager Relationship Specialty Start Date End Date Zhao Harris MD 1210 [facility] [address] [place] [address] PCP - General 12/03/20 documented as of this encounter
--- OUTSIDE RECORDS SUMMARY | 2025-01-20 08:40 | XMS_ITS | Encounter Summary ---
Author Organization [facility] Address [address] [place] [address] Care Team Providers Care [place] Neck Whipper Name Role Phone Zhao Harris MD Primary Care Provider [phone] Encounter Details Date Type Department Care Team [...] t manav in the morning (EYE-BAKERY MACHINE MECHANIC) to steady your nerves or to [...] Appointment PAV A Interventional Radiology [address] [place] [address] 02/10/2025 8:30 AM EDT Clinical Support [facility] CC Hematology/BMT and Cellular Therapy Program [address] [place] [address] 02/10/2025 9:00 AM EDT Office Visit P[facility] CC Hematology/BMT and Cellular Therapy Program [address] [place] [phone] Elaina Boss, PA 800 [facility] [address] [place] [address] 02/10/2025 10:30 AM EDT Appointment [facility]fusion [facility] 1 [address] [place] [address] 02/11/2025 2:00 PM EDT Appointment [facility]fusion [facility] 1 [address] [place] [address] 02/12/2025 2:00 PM EDT Appointment [facility] 1 [address] [place] [address] 02/13/2025 2:00 PM EDT Appointment [facility] 1 [address] [place] [address] 02/14/2025 2:00 PM EDT Appointment [facility]fusion [facility] 1 [address] [place] [address] 03/10/2025 8:30 AM EDT Clinical Support PAV Hematology/BMT and Cellular Therapy Program [address] [place] [address] 03/10/2025 9:00 AM EDT Office Visit P[facility] CC Hematology/BMT and Cellular Therapy Program [address] [place] [address] Isaura Wynn, SHOE FITTER 800 [facility] [address]st [place] [address] 03/10/2025 11:20 AM EDT Office Visit Pav CC Head, Neck & Respiratory 800 [facility], 2nd [place] [address] Elsa Razo, SHOE FITTER 800 [place] [address] documented as of this encounter Visit Diagnoses [...] as of this encounter Care Teams [place] Neck Whipper Relationship Specialty Start Date End Date Zhao Harris MD 1210 [facility] [address] [place] [address] PCP - General 12/03/20 documented as of this encounter
--- OUTSIDE RECORDS SUMMARY | 2025-01-20 08:40 | XMS_ITS | Encounter Summary ---
Author Organization [facility] Address [address] [place] [address] Care Team Providers Care Product Examiner Name Role Phone Zhao Harris MD Primary Care Provider [phone] Encounter Details Date Type Department Care Team [...] first t manav in the morning (EYE-PATIENT SAFETY SITTER) to steady your nerves or to get [...] Upcoming Encounters Date Type Department Care Team ([facility] Contact Info) Description 02/02/2025 11:00 AM EDT Appointment PAV A Interventional Radiology [address] [place] [address] 02/10/2025 8:30 AM EDT Clinical Support P[facility] CC Hematology/BMT and Cellular Therapy Program [address] [place] [address] [place] [address] 02/10/2025 9:00 AM EDT Office Visit P[facility] CC Hematology/BMT and Cellular Therapy Program [address] [place] [phone] Elaina Boss, PA 800 [facility] [address] [place] [address] 02/10/2025 10:30 AM EDT Appointment [facility] 1 [address] [place] [address] 02/11/2025 2:00 PM EDT Appointment [facility] 1 [address] [place] [address] 02/12/2025 2:00 PM EDT Appointment [facility]fusion [facility] 1 [address] [place] [address] 02/13/2025 2:00 PM EDT Appointment [facility]fusion [facility] 1 [address] [place] [address] 02/14/2025 2:00 PM EDT Appointment [facility]fusion [facility] 1 4 [place] [address] 03/10/2025 8:30 AM EDT Clinical Support [facility] CC Hematology/BMT and Cellular Therapy Program [address] [place] [address] [place] [address] 03/10/2025 9:00 AM EDT Office Visit P[facility] CC Hematology/BMT and Cellular Therapy Program [address] [place] [address] [place] [address] Isaura Wynn, HAND POTTER 800 [facility] [address] [place] [address] 03/10/2025 11:20 AM EDT Office Visit Pav CC Head, Neck & Respiratory 800 [facility], 2nd [place] [address] Elsa Razo, HAND POTTER 800 [place] [address] documented as of this encounter Visit Diagnoses [...] documented as of this encounter Care Teams Product Examiner Relationship Specialty Start Date End Date Zhao Harris MD 1210 [facility] [address] [place] [phone] PCP - General 12/03/20 documented as of this encounter
--- OUTSIDE RECORDS SUMMARY | 2025-01-20 08:40 | XMS_ITS | Encounter Summary ---
Author Organization [facility] Address [address] [place] [address] Care Team Providers Care Sap Security Consultant Name Role Phone Zhao Harris MD Primary Care Provider [phone] Reason for Visit * Reason Comments Med Refill Encounter Details Date Type Department Care Team ([facility] Contact Info) Description 02/20/2022 Refill [facility] [place] [address] [facility], [address] [place] [address] Regina Hill, ARAM 800 [place] [address] Social History Tobacco Use Types [...] Upcoming Encounters Date Type Department Care Team ([facility] Contact Info) Description 02/02/2025 11:00 AM EDT Appointment PAV A Interventional Radiology [address] [place] [address] 02/10/2025 8:30 AM EDT Clinical Support P[facility] CC Hematology/BMT and Cellular Therapy Program [address] [place] [address] 02/10/2025 9:00 AM EDT Office Visit P[facility] CC Hematology/BMT and Cellular Therapy Program [address] [place] [place] [address] Elaina Boss, PA 800 [facility] [address] [phone] 02/10/2025 10:30 AM EDT Appointment [facility] 1 744 [place] [address] 02/11/2025 2:00 PM EDT Appointment [facility] 1 [address] [place] [address] 02/12/2025 2:00 PM EDT Appointment [facility] 1 [address] [place] [address] 02/13/2025 2:00 PM EDT Appointment [facility] 1 [address] [place] [address] 02/14/2025 2:00 PM EDT Appointment [facility] 1 [address] [place] [address] 03/10/2025 8:30 AM EDT Clinical Support [facility] CC Hematology/BMT and Cellular Therapy Program [address] [phone] 03/10/2025 9:00 AM EDT Office Visit P[facility] CC Hematology/BMT and Cellular Therapy Program [address] [phone] Isaura Wynn, REIMBURSEMENT MANAGER 800 [facility] [address] [phone] 03/10/2025 11:20 AM EDT Office Visit Pav CC Head, Neck & Respiratory 800 [facility], 2nd [place] [address] Elsa Razo, REIMBURSEMENT MANAGER 800 [place] [address] documented as of this encounter Visit Diagnoses Not on filedocumented in this encounter Additional Health Concerns Infection Onset Date Last Indicated Resolved Time Respiratory Rule-Out 11/03/2024 11/03/2024 025 5:17 PM EDT documented as of this encounter Care Teams Sap Security Consultant Relationship Specialty Start Date End Date Zhao Harris MD [address] [place] [address] PCP - General 12/03/20 documented as of this encounter
--- OUTSIDE RECORDS SUMMARY | 2025-01-20 08:40 | XMS_ITS | Encounter Summary ---
Author Organization [facility] Address [address] [place] [address] Care Team Providers Care Group Dynamics Instructor Name Role Phone Zhao Harris MD Primary Care Provider [phone] Reason for Visit * Reason Onset Date Comments Distress Screen Follow-up 11/25/2024 Encounter Details Date Type Department Care Team (Late st Contact Info) Description 11/25/2024 Telephone P[facility] Hematology/BMT and Cellular Therapy Program [address] [place] [address] [place] [address] Michelle Mast Distress Screen Follow-up Social History [...] drink first t manav in the morning (EYE-TYPEWRITER TESTER) to steady your nerves or to get [...] Appointment PAV A Interventional Radiology [address] [place] [address] 02/10/2025 8:30 AM EDT Clinical Support PAV Hematology/BMT and Cellular Therapy Program [address] [place] [address] 02/10/2025 9:00 AM EDT Office Visit PAV Hematology/BMT and Cellular Therapy Program [address] [phone] Elaina Boss PA 800 [facility] [address] [place] [address] 02/10/2025 10:30 AM EDT Appointment [facility] 1 [address] [place] [address] 02/11/2025 2:00 PM EDT Appointment [facility] 1 [address] [place] [address] 02/12/2025 2:00 PM EDT Appointment [facility] 1 [address] [place] [address] 02/13/2025 2:00 PM EDT Appointment [facility] 1 [address] [place] [address] 02/14/2025 2:00 PM EDT Appointment [facility] 1 [address] [place] [address] 03/10/2025 8:30 AM EDT Clinical Support [facility] CC Hematology/BMT and Cellular Therapy Program [address] [address] 03/10/2025 9:00 AM EDT Office Visit [facility] CC Hematology/BMT and Cellular Therapy Program [address] [address] Isaura Wynn, COMMERCIAL ROOFER 800 [facility] [address] [place] [phone] 03/10/2025 11:20 AM EDT Office Visit Pav CC Head, Neck & Respiratory 800 [facility], 2nd [place] [address] Elsa Razo, COMMERCIAL ROOFER 800 [place] [phone] documented as of this encounter Visit Diagnoses [...] documented as of this encounter Care Teams Group Dynamics Instructor Relationship Specialty Start Date End Date Zhao Harris MD 1210 [facility] [address] [place] [address] PCP - General 12/03/20 documented as of this encounter
--- OUTSIDE RECORDS SUMMARY | 2025-01-20 08:40 | XMS_ITS | Encounter Summary ---
Author Organization [facility] Address [address] [place] [address] Care Team Providers Care Websphere Commerce Developer Name Role Phone Zhao Harris MD Primary Care Provider [phone] Reason for Visit * Reason Comments Med Refill Encounter Details Date Type Department Care Team (Late st Contact Info) Description 01/18/2022 Refill [facility] [place] [facility] [address] [facility] [address] [facility], [address] [place] [address] Regina Hill, PA 800 [place] [address] Hypertension, unspecified type Social History [...] Appointment [facility] A Interventional Radiology [address] [place] [phone] 02/10/2025 8:30 AM EDT Clinical Support [facility] CC Hematology/BMT and Cellular Therapy Program 750 [facility], [address] [place] [address] 02/10/2025 9:00 AM EDT Office Visit [facility] CC Hematology/BMT and Cellular Therapy Program [address] [place] [address] Elaina Boss, ARAM [address] [address] 02/10/2025 10:30 AM EDT Appointment [facility] 1 744 [place] [address] 02/11/2025 2:00 PM EDT Appointment [facility] 1 7[address] [place] [address] 02/12/2025 2:00 PM EDT Appointment [facility] 1 [address] [place] [address] 02/13/2025 2:00 PM EDT Appointment [facility] 1 [address] [place] [address] 02/14/2025 2:00 PM EDT Appointment [facility] 1 [address] [place] [address] 03/10/2025 8:30 AM EDT Clinical Support [facility] Hematology/BMT and Cellular Therapy Program [address] [phone] 03/10/2025 9:00 AM EDT Office Visit [facility] Hematology/BMT and Cellular Therapy Program [address] [phone] Isaura Wynn, PAPER MILL SUPERVISOR 800 [facility] Cancer [address] [phone] 03/10/2025 11:20 AM EDT Office Visit [facility] Head[facility] Neck & Respiratory 800 [facility], 2nd [place] [address] Elsa Razo, PAPER MILL SUPERVISOR 800 [place] [address] documented as of this encounter Visit Diagnoses Diagnosis Hypertension, unspecified type documented in this encounter Additional Health Concerns Infection Onset Date Last Indicated Resolved Time Respiratory Rule-Out 11/03/2024 11/03/2024 025 5:17 PM EDT documented as of this encounter Care Teams Websphere Commerce Developer Relationship Specialty Start Date End Date Zhao Harris MD [address] [place] [address] PCP - General 12/03/20 documented as of this encounter
--- OUTSIDE RECORDS SUMMARY | 2025-01-20 08:40 | XMS_ITS | Encounter Summary ---
Author Organization [facility] Address [address] [place] [address] Care Team Providers Care Road Design Engineer Name Role Phone Zhao Harris MD Primary Care Provider [phone] Encounter Details Date Type Department Care Team [...] drink first t manav in the morning (EYE-HOSE CEMENTER) to steady your nerves or to get [...] ([facility] st Contact Info) Description 02/02/2025 11:00 AM EDT Appointment [facility] A Interventional Radiology [address] [place] [address] 02/10/2025 8:30 AM EDT Clinical Support [facility] CC Hematology/BMT and Cellular Therapy Program [address] [place] [address] 02/10/2025 9:00 AM EDT Office Visit [facility] Hematology/BMT and Cellular Therapy Program [address] [place] [phone] Elaina Boss, PA 800 [facility] [address] [place] [address] 02/10/2025 10:30 AM EDT Appointment [facility] 1 744 [place] [address] 02/11/2025 2:00 PM EDT Appointment [facility] 1 [address] [place] [address] 02/12/2025 2:00 PM EDT Appointment [facility] 1 [address] [place] [address] 02/13/2025 2:00 PM EDT Appointment [facility] 1 [address] [place] [address] 02/14/2025 2:00 PM EDT Appointment [facility] 1 [address] [place] [address] 03/10/2025 8:30 AM EDT Clinical Support [facility] Hematology/BMT and Cellular Therapy Program [address] [place] [address] 03/10/2025 9:00 AM EDT Office Visit [facility] CC Hematology/BMT and Cellular Therapy Program [address] [place] [phone] Isaura Wynn, JOINT YARNER 800 [facility] 1st [place] [address] 03/10/2025 11:20 AM EDT Office Visit Pav [facility] Head, Neck & Respiratory 800 [facility], 2nd [place] [address] Elsa Razo, JOINT YARNER 800 [place] [address] documented as of this encounter Visit Diagnoses [...] documented as of this encounter Care Teams Road Design Engineer Relationship Specialty Start Date End Date Zhao Harris MD 1210 [facility] [address] [place] [address] PCP - General 12/03/20 documented as of this encounter
--- OUTSIDE RECORDS SUMMARY | 2025-01-20 08:40 | XMS_ITS | Encounter Summary ---
Author Organization [facility] Address [address] [place] [address] Care Team Providers Care Regulatory Compliance Specialist Name Role Phone Zhao Harris MD Primary Care Provider [phone] Encounter Details Date Type Department Care Team [...] drink first t manav in the morning (EYE-TELEGRAPH SERVICE RATER) to steady your nerves or to get [...] Appointment [facility] A Interventional Radiology [address] [place] [address] 02/10/2025 8:30 AM EDT Clinical Support [facility] Hematology/BMT and Cellular Therapy Program [address] [place] [address] 02/10/2025 9:00 AM EDT Office Visit [facility] Hematology/BMT and Cellular Therapy Program [address] [place] [address] Elaina Boss, PA 800 [facility] [address] [place] [address] 02/10/2025 10:30 AM EDT Appointment [facility] 1 [address] [place] [address] 02/11/2025 2:00 PM EDT Appointment [facility] 1 [address] [place] [address] 02/12/2025 2:00 PM EDT Appointment [facility] 1 [address] [place] [address] 02/13/2025 2:00 PM EDT Appointment [facility] 1 [address] [place] [address] 02/14/2025 2:00 PM EDT Appointment [facility] 1 [address] [place] [address] 03/10/2025 8:30 AM EDT Clinical Support [facility] Hematology/BMT and Cellular Therapy Program [address] [place] [address] 03/10/2025 9:00 AM EDT Office Visit [facility] CC Hematology/BMT and Cellular Therapy Program [address] [place] [phone] Isaura Wynn, RANGE MECHANIC 800 [facility]tr [address] [place] [address] 03/10/2025 11:20 AM EDT Office Visit Pav CC Head, Neck & Respiratory 800 [facility], 2nd [place] [address] Elsa Razo, RANGE MECHANIC 800 [place] [address] documented as of this encounter Visit Diagnoses [...] documented as of this encounter Care Teams Regulatory Compliance Specialist Relationship Specialty Start Date End Date Zhao Harris MD 1210 [facility] [address] [place] [address] PCP - General 12/03/20 documented as of this encounter
[2025-01-20 08:52] LABS: Hematocrit 25.5 % (42.0-52.0); Hemoglobin 8.8 g/dL (14.1-18.0); Immature Granulocytes % 0 %; Mean Corpuscular HGB Conc 34.5 g/dL (31.8-35.4); Mean Corpuscular Hemoglobin 28.7 pg (27.0-31.2); Mean Corpuscular Volume 83.1 fl (80-94); Nucleated Red Blood Cells % 0 %; Red Blood Count 3.07 M/mm3 (4.60-6.20); Red Cell Distribution Width-SD 41.1 fL
[2025-01-20 09:01] LABS: Albumin Level 4.2 g/dl (3.5-5.0); Chloride 106 mmol/L (98-107); Sodium 139 mmol/L (136-145)
[2025-01-20 09:02] LABS: Potassium 4.3 mmoL/L (3.5-5.1); White Blood Count 0.6 K/mm3 (4.8-10.8)
[2025-01-20 09:03] LABS: Platelet Count 4 K/mm3 (142-424)
[2025-01-20 09:04] LABS: Alanine Aminotransferase 39 U/L (12-78); Albumin/Globulin Ratio 1.3 (1.1-1.8); Alkaline Phosphatase 121 U/L (38-126); Anion Gap 14.3 mEq/L (5-15); Aspartate Amino Transferase 37 U/L (17-59); Bilirubin,Total 0.7 mg/dl (0.2-1.3); Blood Urea Nitrogen 14 mg/dl (9-20); Carbon Dioxide 23 mmol/L (22.0-30.0); Creatinine Clearance Estimated 86 mL/min (50-200); Creatinine,Serum 0.70 mg/dl (0.66-1.25); Estimated Glomerular Filt Rate 112 ml/min (>60); GFR (African American) 135 ML/MIN (>60); Globulin 3.2 g/dL (1.3-3.2); Total Protein,Serum 7.4 g/dl (6.3-8.2)
[2025-01-20 09:05] LABS: Calcium 8.9 mg/dl (8.4-10.2); Glucose 108 mg/dl (74-100)
[2025-01-20 10:00] LABS: RBC Morphology Normal; Total Cells Counted 25
== END 2025-01-20 15:45 | disposition home or self-care (01) ==
LOC: INF 08:32
PROVIDERS: PCP Family Medicine; Visit Provider Internal Medicine Medical Oncology
DX: D46.9 Myelodysplastic syndrome, unspecified (principal)
CPT/HCPCS: 36415; 36430; 80053; 85007; 85025; 85027; 86900; 86901; J1642; P9034

== ENCOUNTER 2025-01-22 08:10 | Outpatient (CLI) | payer MEDICARE, SELFPAY ==
--- OUTSIDE RECORDS SUMMARY | 2024-11-22 13:59 | XMS_ITS | Encounter Summary ---
Author Organization [facility] Address [address] [place] [address] Care Team Providers Care Extractor Loader And Unloader Name Role Phone Zhao Harris MD Primary Care Provider + [phone] Reason for Visit * Episode Based Medications (Routine) - Closed Specialty Diagnoses / Procedures Referred By Justice mcgee Referred To Contact Diagnoses Myelodysplasia (myelodysplastic syndrome) (CMS/HCC) Procedures Azacitidine Daily x 7 / Venetoclax Every 28 Days Virgen Vargas MD [address] [place] [phone] Phone: tel: fax: Virgen Vargas MD [address] [address] Phone: tel: fax: Referral ID Status Reason Start Date Expiration Date Visits Re quested Visits Authorized [id number] Closed 10/20/2024 04/21/2026 1 91 Encounter Details Date Type Department Care Team (Latest Contact Info) Description 11/22/2024 1:59 PM EDT - 11/22/2024 11:59 PM EDT Hospital Encounter [facility] Infusion Clinic 1 [address] [place] [phone] Myelodysplasia (myelodysplastic syndrome) (CMS/HCC) (Primary Dx); Thrombocytopenia [...] drink first t manav in the morning (EYE-ENERGY AND CONSERVATION TECHNICIAN) to steady your nerves or to get [...] 5 MG tabletIndications :Coronary artery disease involving [place] heart with angina pectoris, unspecified vessel or lesion type (CMS/HCC),Hyperte nsion, unspecified type Take 1 tablet (5 mg) by mouth daily. 90 tablet 3 09/11/2024 HYDROcodone-aceta minophen ([place]) 5-325 MG tablet Take 1 tablet by [...] MG SL tabletIndications :Coronary artery disease involving [place] heart with angina pectoris, unspecified vessel or lesion type (CMS/HCC) Place 1 tablet (0.4 mg) under the tongue every 5 (five) minutes as needed for chest pain. 10 tablet 11 09/11/2024 aspirin 81 MG chewable tablet Chew 1 tablet (81 mg) 1 (one) time each day. aspirin 81 mg tablet 30 tablet 11 11/29/2023 amLODIPine (Norvasc) 2.5 MG tabletIndications :Coronary artery disease involving [place] heart with angina pectoris, unspecified vessel or [...] AM EDT Appointment PAV A Interventional Radiology [address] [place] [phone] Hussain Calles RN 02/10/2025 8:30 AM EDT Clinical Support PAV Hematology/BMT and Cellular Therapy Program [address] [address] 02/10/2025 9:00 AM EDT Office Visit PAV Hematology/BMT and Cellular Therapy Program [address] [address] Elaina Boss, PA 800 [facility] [address] [place] [phone] 02/10/2025 10:30 AM EDT Appointment [facility] Infusion Clinic 1 [address] [place] [address] 02/11/2025 2:00 PM EDT Appointment [facility] Infusion Clinic 1 [address] [place] [address] 02/12/2025 2:00 PM EDT Appointment [facility] Infusion Clinic 1 [address] [place] [address] 02/13/2025 2:00 PM EDT Appointment PAV Infusion Clinic 1 [address] [place] [address] 02/14/2025 2:00 PM EDT Appointment [facility] Infusion Clinic 1 [address] [place] [address] 03/10/2025 8:30 AM EDT Clinical Support PAV Hematology/BMT and Cellular Therapy Program [address] [address] 03/10/2025 9:00 AM EDT Office Visit PAV Hematology/BMT and Cellular Therapy Program [address] [phone] Isaura Wynn APRN 800 [facility] [address] [place] [phone] 03/10/2025 11:20 AM EDT Office Visit Pav CC Head, Neck & Respiratory 800 [facility], 2nd [place] [phone] Elsa Razo, BUSINESS EMPLOYMENT SPECIALIST [address] [place] [address] documented as of this encounter Procedures Procedure [...] (ABNORMAL) Platelet count (11/22/2024 4:24 PM EDT) Pathologist [facility] Platelet Count 62(L) 155 - 369 10*3/uL LAB HEMATOLOGY METHOD 11/22/2024 5:13 PM EDT [facility] Blood Venous blood specimen / Unknown Venipuncture / Unknown 11/22/2024 4:24 PM EDT 11/22/2024 5:04 PM EDT us Virgen Vargas MD LAB BLOOD ORDERABLES Final Re sult [facility] [address] [place] [address] * Exception to Standard Practice, Pathologist Interpretation (11/22/2024 3:27 PM EDT) Pathologist [facility] Clinical Diagnosis, Exception to Standard Practice thrombocytopenia [...] 3:27 PM EDT 11/24/2024 8:51 AM EDT us Juwan Horton MD LAB BLOOD BANK TEST ORDERAB LES Final Result Performing Organization Address [facility] Co de Phone Number BLOOD BANK [address] * Prepare Leukocyte Reduced Platelets: 1 Units (11/22/2024 3:18 PM EDT) Product Code [id number] CH BLOO D BANK Dispense Status Transfused BLOOD BANK Blood Expiration Date [id number] BLOOD BANK Unit Number [id number] B LOOD BANK Product Blood Type 5100 BLOOD BANK Blood Type O+ BLOOD BANK Blood Venous blood specimen / Unknown us Kayli CHIU BLOOD BANK PRODUCT ORDER VIKAS Final Result Performing Organization Address City/[facility] Co de Phone Number BLOOD BANK [address] documented in this encounter Visit Diagnoses [...] documented as of this encounter Care Teams Extractor Loader And Unloader Relationship Specialty Start Date End Date Zhao Harris MD [address] [place] [address] PCP - General 12/03/20 documented as of this encounter
--- OUTSIDE RECORDS SUMMARY | 2024-11-23 13:43 | XMS_ITS | Encounter Summary ---
Author Organization [facility] Address [address] [place] [address] Care Team Providers Care Car Wash Supervisor Name Role Phone Zhao Harris MD Primary Care Provider + [phone] Reason for Visit * Episode Based Medications (Routine) - Closed Specialty Diagnoses / Procedures Referred By Justice mcgee Referred To Contact Diagnoses Myelodysplasia (myelodysplastic syndrome) (CMS/HCC) Procedures Azacitidine Daily x 7 / Venetoclax Every 28 Days Virgen Vargas MD [address] [address] Phone: tel: fax: Virgen Vargas MD [address] [address] Phone: tel: fax: Referral ID Status Reason Start Date Expiration Date Visits Re quested Visits Authorized [id number] Closed 10/20/2024 04/21/2026 1 91 Encounter Details Date Type Department Care Team (Latest Contact Info) Description 11/23/2024 1:43 PM EDT - 11/23/2024 11:59 PM EDT Hospital Encounter [facility] Infusion Clinic 1 [address] [place] [phone] Myelodysplasia (myelodysplastic syndrome) (CMS/HCC) (Primary Dx) Discharge [...] drink first t manav in the morning (EYE-PRODUCTION ASSOCIATE) to steady your nerves or to [...] 5 MG tabletIndications :Coronary artery disease involving [place] heart with angina pectoris, unspecified vessel or lesion type (CMS/HCC),Hyperte nsion, unspecified type Take 1 tablet (5 mg) by mouth daily. 90 tablet 3 09/11/2024 HYDROcodone-aceta minophen ([place]) 5-325 MG tablet Take 1 tablet by [...] MG SL tabletIndications :Coronary artery disease involving [place] heart with angina pectoris, unspecified vessel or lesion type (CMS/HCC) Place 1 tablet (0.4 mg) under the tongue every 5 (five) minutes as needed for chest pain. 10 tablet 11 09/11/2024 aspirin 81 MG chewable tablet Chew 1 tablet (81 mg) 1 (one) time each day. aspirin 81 mg tablet 30 tablet 11 11/29/2023 amLODIPine (Norvasc) 2.5 MG tabletIndications :Coronary artery disease involving [place] heart with angina pectoris, unspecified vessel or [...] Appointment [facility] A Interventional Radiology [address] [place] [phone] Hussain Calles RN 02/10/2025 8:30 AM EDT Clinical Support [facility] Hematology/BMT and Cellular Therapy Program [address] [place] [address] [place] [address] 02/10/2025 9:00 AM EDT Office Visit [facility] Hematology/BMT and Cellular Therapy Program [address] [place], [place] [address] [place] [phone] Elaina Boss, PA [address] [phone] 02/10/2025 10:30 AM EDT Appointment [facility] Infusion Clinic 1 [address] [place] [address] 02/11/2025 2:00 PM EDT Appointment [facility] Infusion Clinic 1 [address] [place] [phone] 02/12/2025 2:00 PM EDT Appointment [facility] Infusion Clinic 1 [address] [place] [phone] 02/13/2025 2:00 PM EDT Appointment [facility] Infusion [facility] 1 [address] [place] [phone] 02/14/2025 2:00 PM EDT Appointment [facility] Infusion [facility] 1 [address] [place] [address] 03/10/2025 8:30 AM EDT Clinical Support [facility] Hematology/BMT and Cellular Therapy Program [address] [phone] 03/10/2025 9:00 AM EDT Office Visit [facility] Hematology/BMT and Cellular Therapy Program [address] [phone] Isaura Wynn, CIRCULATION SALES REPRESENTATIVE 800 [facility] [address] [phone] 03/10/2025 11:20 AM EDT Office Visit [facility] CC Head, Neck & Respiratory 800 [facility], [address]nd [place] [phone] Elsa Razo, CIRCULATION SALES REPRESENTATIVE [address] [place] [phone] documented as of this encounter Visit Diagnoses [...] 11/23/24 at 1400, RoutineIndications:Myelodyspla haim (myelodysplastic syndrome) ([facility]/HCC) Given 11/23/2024 1:48 PM EDT 16 mg [...] as of this encounter Care Teams Car Wash Supervisor Relationship Specialty Start Date End Date Zhao Harris MD [address] [place] [address] PCP - General 12/03/20 documented as of this encounter
--- OUTSIDE RECORDS SUMMARY | 2024-11-24 13:59 | XMS_ITS | Encounter Summary ---
Author Organization [facility] Address [address] [place] [address] Care Team Providers Care Nipple Threader Name Role Phone Zhao Harris MD Primary Care Provider + [phone] Reason for Visit * Episode Based Medications (Routine) - Closed Specialty Diagnoses / Procedures Referred By Justice mcgee Referred To Contact Diagnoses Myelodysplasia (myelodysplastic syndrome) (CMS/HCC) Procedures Azacitidine Daily x 7 / Venetoclax Every 28 Days Virgen Vargas MD [address] [address] Phone: tel: fax: Virgen Vargas MD [address] [address] Phone: tel: fax: Referral ID Status Reason Start Date Expiration Date Visits Re quested Visits Authorized [id number] Closed 10/20/2024 04/21/2026 1 91 Encounter Details Date Type Department Care Team (Latest Contact Info) Description 11/24/2024 1:59 PM EDT - 11/24/2024 2:29 PM EDT Hospital Encounter [facility] Infusion Clinic [address] [place] [phone] Myelodysplasia (myelodysplastic syndrome) (CMS/HCC) (Primary Dx); Thrombocytopenia [...] drink first t manav in the morning (EYE-INTERACTIVE DEVELOPER) to steady your nerves or to get [...] 5 MG tabletIndications :Coronary artery disease involving [place] heart with angina pectoris, unspecified vessel or lesion type (CMS/HCC),Hyperte nsion, unspecified type Take 1 tablet (5 mg) by mouth daily. 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 Polyclonal B-cells (3%) and a [...] counts (WBC 2.3 k/??L, hemoglobin 11.6 g/dL, [id number] k/??L) prompted a bone marrow biopsy on [...] ARAM Higuera HEMATOLOGY/BMT AND CELLULAR THERAPY PROGRAM [address] [place] [phone] SERVICE PAGER [phone]/Miradore CHAT 23 minutes was spent on this [...] daily., Disp: 90 tablet, Rfl: 3 HYDROcodone-acetaminophen ([place]) 5-325 MG tablet, Take 1 tablet by [...] Appointment PAV A Interventional Radiology [address] [place] [address] Hussain Calles, BRIAN 02/10/2025 8:30 AM EDT Clinical Support PAV Hematology/BMT and Cellular Therapy Program [address] [place] [address] [place] [address] 02/10/2025 9:00 AM EDT Office Visit PAV Hematology/BMT and Cellular Therapy Program [address] [place] [address] [place] [address] Elaina Boss, PA 800 [facility] [address] [place] [phone] 02/10/2025 10:30 AM EDT Appointment [facility] Infusion Clinic [address] [place] [address] 02/11/2025 2:00 PM EDT Appointment [facility] Infusion Clinic [address] [place] [phone] 02/12/2025 2:00 PM EDT Appointment [facility] Infusion Clinic [address] [place] [phone] 02/13/2025 2:00 PM EDT Appointment [facility] Infusion Clinic [address] [place] [phone] 02/14/2025 2:00 PM EDT Appointment [facility] Infusion Clinic [address] [place] [phone] 03/10/2025 8:30 AM EDT Clinical Support PAV CC Hematology/BMT and Cellular Therapy Program [address] [phone] 03/10/2025 9:00 AM EDT Office Visit PAV CC Hematology/BMT and Cellular Therapy Program [address] [phone] Isaura Wynn, RESEARCH LAB ASSISTANT 800 [facility] [address] [place] [phone] 03/10/2025 11:20 AM EDT Office Visit Pav CC Head, Neck & Respiratory 800 [facility], 2nd [place] [address] Elsa Razo, RESEARCH LAB ASSISTANT [address] [place] [phone] documented as of this encounter Procedures Procedure [...] Transfuse RBC, Irradiated (11/24/2024 6:27 PM EDT) us Kayli CHIU BLOOD TRANSFUSION ORDERA BLES Final Result * Transfuse RBC: 1 Units, Irradiated (11/24/2024 6:27 PM EDT) Kayli CHIU BLOOD TRANSFUSION ORDERA BLES Final Result * (ABNORMAL) Platelet count (11/24/2024 4:19 PM EDT) Platelet Count 43(L) 155 - 369 10*3/uL LAB HEMATOLOGY METHOD 11/24/2024 4:23 PM EDT [facility] Blood Venous blood specimen / Unknown Venipuncture / Unknown 11/24/2024 4:19 PM EDT 11/24/2024 4:20 PM EDT Virgen Vargas MD LAB BLOOD ORDERABLES Final Re sult [facility] [address] [place] [address] * Transfuse platelets (11/24/2024 4:11 PM EDT) Kayli CHIU BLOOD TRANSFUSION ORDERA BLES Final Result * Transfuse platelets: 1 Units (11/24/2024 4:11 PM EDT) Kayli Ospina PA BLOOD TRANSFUSION [...] ORDERAB LES Final Result Performing Organization Address [facility] Co de Phone Number BLOOD BANK [address] [place] [address], [place] * Prepare Leukocyte Reduced Platelets: 1 Units (11/24/2024 2:36 PM EDT) Product Code [id number] CH BLOO D BANK Dispense Status Transfused BLOOD BANK Blood Expiration Date [id number] BLOOD BANK Unit Number [id number] CH B LOOD BANK Product Blood Type 6200 BLOOD BANK Blood Type A+ CH BLOOD BANK Blood Venous blood specimen / Unknown Kayli CHIU BLOOD BANK PRODUCT ORDER VIKAS Final Result Performing Organization Address [facility] de Phone Number BLOOD BANK [address] [place] [address], [place] * Prepare Leukocyte Reduced RBC: 1 Units, Irradiated (11/24/2024 2:36 PM EDT) Product Code [id number] CH BLOO D BANK Dispense Status Transfused BLOOD BANK Blood Expiration Date [id number] BLOOD BANK Unit Number [id number] CH B LOOD BANK Product Blood Type 9500 BLOOD BANK Blood Type O- BLOOD BANK Crossmatch Compatible BLOOD BANK Other Kayli CHIU BLOOD BANK PRODUCT ORDER VIKAS Final Result Performing Organization Address [facility] Co de Phone Number BLOOD BANK [address] [place] [address], [place] * Type and Screen (11/24/2024 2:07 PM [...] BLOOD BANK TEST ORDERABLE S Final Result BLOOD BANK [address] [place] [address], * Comprehensive Metabolic Panel, Plasma (11/24/2024 2:07 PM EDT) Glucose, Plasma 97 74 - 99 mg/dL 11/24/2024 3:44 PM EDT [facility] BUN, Plasma 13 8 - 23 mg/dL 11/24/2024 3:44 PM EDT [facility] Creatinine, Plasma 0.97 0.70 - 1.20 mg/dL 11/24/2024 3:44 PM EDT [facility] BUN/Creatinine Ratio 13 11/24/2024 3:44 PM EDT [facility] Sodium, Plasma 138 136 - 145 mmol/L 11/24/2024 3:44 PM EDT [facility] Potassium, Plasma 3.7 3.6 - 4.9 mmol/L 11/24/2024 3:44 PM EDT [facility] Chloride, Plasma 107 97 - 107 mmol/L 11/24/2024 3:44 PM EDT [facility] CO2, Plasma 22 22 - 29 mmol/L 11/24/2024 3:44 PM EDT [facility] Anion Gap 9 6 - 16 mmol/L 11/24/2024 3:44 PM EDT [facility] Total Calcium, Plasma 9.5 8.9 - 10.2 mg/dL 11/24/2024 3:44 PM EDT [facility] Total Protein 6.7 6.3 - 7.9 g/dL 11/24/2024 3:44 PM EDT [facility] Albumin, Plasma 3.8 3.5 - 5.2 g/dL 11/24/2024 3:44 PM EDT [facility] AST, Plasma 18 10 - 50 U/L 11/24/2024 3:44 PM EDT [facility] ALT, Plasma 20 10 - 50 U/L 11/24/2024 3:44 PM EDT [facility] Alkaline Phosphatase, Plasma 71 40 - 115 U/L 11/24/2024 3:44 PM EDT [facility] Total Bilirubin, Plasma 0.7 0.2 - 1.1 mg/dL 11/24/2024 3:44 PM EDT [facility] eGFRcr 84.5 mL/min/1.7 3m*2 11/24/2024 3:44 PM EDT [facility] Comment:Reported eGFRcr in m L/min/1.73m2 is based the CKD-EPI 2020 equation that does not use a race coefficient. Blood Venous blood specimen / Unknown Venipuncture / Unknown 11/24/2024 2:07 PM EDT 11/24/2024 2:44 PM EDT us Virgen Vargas MD LAB BLOOD ORDERABLES Final Re sult [facility] [address] [place] [address] * (ABNORMAL) CBC and Differential (11/24/2024 2:07 PM EDT) WBC Count 0.76(LL) 3.70 - 10.30 10*3/uL LAB HEMATOLOGY METHOD 11/24/2024 2:44 PM EDT [facility] RBC Count 2.37(L) 4.60 - 6.10 10*6/uL LAB HEMATOLOGY METHOD 11/24/2024 2:44 PM EDT [facility] HGB 8.0(L) 13.7 - 17.5 g/dL LAB HEMATOLOGY METHOD 11/24/2024 2:44 PM EDT [facility] HCT 22.3(L) 40.0 - 51.0 % LAB HEMATOLOGY METHOD 11/24/2024 2:44 PM EDT [facility] Platelet Count 12(LL) 155 - 369 10*3/uL LAB HEMATOLOGY METHOD 11/24/2024 2:44 PM EDT [facility] MCV 94 79 - 98 fL LAB HEMATOLOGY METHOD 11/24/2024 2:44 PM EDT [facility] MCH 33.8(H) 26.0 - 32.0 pg LAB HEMATOLOGY METHOD 11/24/2024 2:44 PM EDT [facility] MCHC 35.9(H) 30.7 - 35.5 g/dL LAB HEMATOLOGY METHOD 11/24/2024 2:44 PM EDT [facility] RDW 18.8(H) 11.5 - 14.5 % LAB HEMATOLOGY METHOD 11/24/2024 2:44 PM EDT [facility] MPV LAB HEMATOLOGY METHOD 11/24/2024 2:44 PM EDT [facility] Comment:Not Measured nRBC 0.0 <=0.0 per 100 WBCs LAB HEMATOLOGY METHOD 11/24/2024 2:44 PM EDT [facility] Differential Type Automated LAB HEMATOLOGY METHOD 11/24/2024 2:44 PM EDT [facility] Neutrophils % 16 % LAB HEMATOLOGY METHOD 11/24/2024 2:44 PM EDT [facility] Lymphocytes % 79 % LAB HEMATOLOGY METHOD 11/24/2024 2:44 PM EDT [facility] Monocytes % 4 % LAB HEMATOLOGY METHOD 11/24/2024 2:44 PM EDT [facility] Eosinophils % 1 % LAB HEMATOLOGY METHOD 11/24/2024 2:44 PM EDT [facility] Basophils % 0 % LAB HEMATOLOGY METHOD 11/24/2024 2:44 PM EDT [facility] Immature Granulocytes % 0 % LAB HEMATOLOGY METHOD 11/24/2024 2:44 PM EDT [facility] Neutrophils Absolute 0.12(LL) 1.60 - 6.10 10*3/uL LAB HEMATOLOGY METHOD 11/24/2024 2:44 PM EDT [facility] Lymphocytes Absolute 0.60(L) 1.20 - 3.90 10*3/uL LAB HEMATOLOGY METHOD 11/24/2024 2:44 PM EDT [facility] Monocytes Absolute 0.03(L) 0.30 - 0.90 10*3/uL LAB HEMATOLOGY METHOD 11/24/2024 2:44 PM EDT [facility] Eosinophils Absolute 0.01 0.00 - 0.50 10*3/uL LAB HEMATOLOGY METHOD 11/24/2024 2:44 PM EDT [facility] Basophils Absolute 0.00 0.00 - 0.10 10*3/uL LAB HEMATOLOGY METHOD 11/24/2024 2:44 PM EDT [facility] Immature Granulocytes Absolute 0.00 0.00 - 0.06 10*3/uL LAB HEMATOLOGY METHOD 11/24/2024 2:44 PM EDT [facility] Blood Venous blood specimen / Unknown Venipuncture / Unknown 11/24/2024 2:07 PM EDT 11/24/2024 2:13 PM EDT Narrative [facility] - 11/24/2024 2:44 PM EDT Therapeutic decision making should be based on absolute values, rather than percentages. us Virgen Vargas MD LAB BLOOD ORDERABLES Final Re sult [facility] [address] [place] [address] documented in this encounter Visit Diagnoses Diagnosis [...] documented as of this encounter Care Teams Nipple Threader Relationship Specialty Start Date End Date Zhao Harris MD [address] [place] [address] PCP - General 12/03/20 documented as of this encounter
--- OUTSIDE RECORDS SUMMARY | 2024-11-24 14:30 | XMS_ITS | Encounter Summary ---
Author Organization [facility] Address [address] [place] [address] Care Team Providers Care Middleware Solutions Architect Name Role Phone Zhao Harris MD Primary Care Provider [phone] Encounter Details Date Type Department Care Team (Latest Contact Info) Description 11/24/2024 2:30 PM EDT - 11/24/2024 11:59 PM EDT Hospital Encounter [facility] Infusion Clinic [address] [place] [phone] Discharge Disposition: Home or Self Care Social [...] drink first t manav in the morning (EYE-VOLCANOLOGY PROFESSOR) to steady your nerves or to [...] 5 MG tabletIndications :Coronary artery disease involving [place] heart with angina pectoris, unspecified vessel or lesion type (CMS/HCC),Hyperte nsion, unspecified type Take 1 tablet (5 mg) by mouth daily. 90 tablet 3 09/11/2024 HYDROcodone-aceta minophen ([place]in) 5-325 MG tablet Take 1 tablet by [...] MG SL tabletIndications :Coronary artery disease involving [place] heart with angina pectoris, unspecified vessel or [...] 2.5 MG tabletIndications :Coronary artery disease involving [place] heart with angina pectoris, unspecified vessel or [...] Appointment PAV A Interventional Radiology [address] [place] [address] Hussain Calles, BRIAN 02/10/2025 8:30 AM EDT Clinical Support P[facility] Hematology/BMT and Cellular Therapy Program [address] [phone] 02/10/2025 9:00 AM EDT Office Visit P[facility] Hematology/BMT and Cellular Therapy Program [address] [phone] Elaina Boss, PA 800 [facility] [address] [place] [phone] 02/10/2025 10:30 AM EDT Appointment [facility] Infusion Clinic 1 [address] [place] [address] 02/11/2025 2:00 PM EDT Appointment [facility] Infusion Clinic 1 [address] [place] [address] 02/12/2025 2:00 PM EDT Appointment [facility] Infusion Clinic 1 [address] [place] [address] 02/13/2025 2:00 PM EDT Appointment [facility] Infusion Clinic 1 [address] [place] [address] 02/14/2025 2:00 PM EDT Appointment [facility] Infusion Clinic 1 [address] [place] [address] 03/10/2025 8:30 AM EDT Clinical Support P[facility] Hematology/BMT and Cellular Therapy Program [address] [phone] 03/10/2025 9:00 AM EDT Office Visit P[facility] Hematology/BMT and Cellular Therapy Program [address] [phone] Isaura Wynn, FLAT LOCK OPERATOR 800 [facility] [address] [place] [phone] 03/10/2025 11:20 AM EDT Office Visit Pav CC Head, Neck & Respiratory 800 [facility], [address]nd [place] [address] Elsa Razo, FLAT LOCK OPERATOR [address] [place] [address] documented as of this encounter Visit Diagnoses [...] documented as of this encounter Care Teams Middleware Solutions Architect Relationship Specialty Start Date End Date Zhao Harris MD [address] [place] [phone] PCP - General 12/03/20 documented as of this encounter
--- OUTSIDE RECORDS SUMMARY | 2024-11-26 10:00 | XMS_ITS | Encounter Summary ---
Author Organization [facility] Address [address] [place] [address] Care Team Providers Care Straight Truck Driver Name Role Phone Zhao Harris MD Primary Care Provider [phone] Reason for Visit * Reason Comments Consult Encounter Details Date Type Department Care Team (Latest Contact Info) Description 11/26/2024 10:00 AM EDT [facility] Visit [facility] Rad[facility] [address] [place] [address] Latoya Nunez N, PL SQL DEVELOPER [address] [place] [address] Preop examination (Primary Dx) Social [...] drink first t manav in the morning (EYE-ELECTROCARDIOGRAPH TECHNICIAN) to steady your nerves or to [...] daily., Disp: 90 tablet, Rfl: 3 HYDROcodone-acetaminophen ([place]) 5-325 MG tablet, Take 1 tablet by [...] from the original note were not included. [address] Vascular Access Port Implantation Port implantation is [...] All prescription medicines, especially blood thinners ?? Giye-fmr-hpqvmkt medicines such as aspirin or ibuprofen ?? [...] dislodged Last Reviewed Date: 2024 00:00:00 ?? [phone] [employer]. All rights reserved. This information is not intended as a substitute for professional medical care. Always follow your healthcare professional's instructions. documented in this encounter Plan of Treatment Upcoming Encounters Date Type Department Care Team ([facility] st Contact Info) Description 02/02/2025 11:00 AM EDT Appointment [facility] A Interventional Radiology [address] [place] [address] Hussain Calles RN 02/10/2025 8:30 AM EDT Clinical Support [facility] Hematology/BMT and Cellular Therapy Program [address] [phone] 02/10/2025 9:00 AM EDT Office Visit [facility] Hematology/BMT and Cellular Therapy Program [address] [place] [phone] Elaina Boss, ARAM 800 [facility] [address] [place] [phone] 02/10/2025 10:30 AM EDT Appointment [facility]fusion [facility] 1 [address] [place] [address] 02/11/2025 2:00 PM EDT Appointment [facility] 1 [address] [place] [address] 02/12/2025 2:00 PM EDT Appointment [facility] 1 [address] [place] [address] 02/13/2025 2:00 PM EDT Appointment [facility] 1 [address] [place] [address] 02/14/2025 2:00 PM EDT Appointment [facility] Infusion Clinic 1 [address] [place] [address] 03/10/2025 8:30 AM EDT Clinical Support [facility] Hematology/BMT and Cellular Therapy Program 750 [facility] [place] [address] 03/10/2025 9:00 AM EDT Office Visit [facility] Hematology/BMT and Cellular Therapy Program 750 [facility], [address] [place] [phone] Isaura Wynn, PL SQL DEVELOPER 800 [facility] [address] [place] [phone] 03/10/2025 11:20 AM EDT Office Visit Pav CC Head, Neck & Respiratory 800 [facility], 2nd [place] [phone] Elsa Razo, PL SQL DEVELOPER [address] [place] [phone] documented as of this encounter Results * Protime-INR (11/26/2024 10:51 AM EDT) [facility] Signature Prothrombin Time 13.8 12.0 - 14.3 sec LAB COAGULATION METHOD 11/26/2024 11:52 AM EDT [facility] INR 1.1 0.9 - 1.1 LAB COAGULATION METHOD 11/26/2024 11:52 AM EDT [facility] Blood Venous blood specimen / Unknown Venipuncture / Unknown 11/26/2024 10:51 AM EDT 11/26/2024 10:51 AM EDT Narrative [facility] - 11/26/2024 11:52 AM EDT OPTIMAL INR RANGES FOR PATIENT ON ORAL ANTICOAGULANT THERAPY Prevention of venous thromboembolism INR 2.0 to 3.0 In patients with heart disease: Atrial fibrillation INR 2.0 to 3.0 Valvular heart disease INR 2.0 to 3.0 Tissue heart valves INR 2.0 to 3.0 Mechanical prosthetic valves INR 2.5 to 3.5 Prevention of recurrent [place] INR 2.5 to 3.[address] SQL DEVELOPER LAB BLOOD ORDERABLES Final R esult [facility] [address] [place] [address] documented in this encounter Visit Diagnoses Diagnosis [...] documented as of this encounter Care Teams Straight Truck Driver Relationship Specialty Start Date End Date Zhao Harris MD [address] [place] [address] PCP - General 12/03/20 documented as of this encounter
--- OUTSIDE RECORDS SUMMARY | 2024-12-01 08:41 | XMS_ITS | Encounter Summary ---
Author Organization [facility] Address [address] [place] [address] Care Team Providers Care Import Export Coordinator Name Role Phone Zhao Harris MD Primary Care Provider [phone] Reason for Referral * Consultation (Routine) - Closed Specialty Diagnoses / Procedures Referred By Contact Referred To Contact Interventional Radiology Diagnoses Myelodysplasia (myelodysplastic syndrome) (CMS/HCC) Mckinley Lee MD [address] [place] [address] Phone: tel:[phone] fax:[phone] [facility] Vascular Interventional Radiology [address] [place] [address] Phone: tel: Referral ID Status Reason Start Date Expiration Date V isits Requested Visits Authorized [id number] Closed Specialty Services Required 12/01/2024 06/02/2026 1 1 * Imaging (Routine) - Closed Specialty Diagnoses / Procedures Referred By Justice mcgee Referred To Contact Radiology Diagnoses Myelodysplasia (myelodysplastic syndrome) (CMS/HCC) Procedures IR Port Placement 5+ Years Consult to Interventional Radiology Isaura Wynn APRN 800 [facility] [address] [place] [address] Phone: tel: fax: Referral ID Status Reason Start Date Expiration Date Visits Re quested Visits Authorized [id number] Closed 11/18/2024 05/20/2026 1 1 Reason for Visit * Imaging (Routine) - Closed Specialty Diagnoses / Procedures Referred By Justice mcgee Referred To Contact Radiology Diagnoses Myelodysplasia (myelodysplastic syndrome) (CMS/HCC) Procedures IR Port Placement 5+ Years Consult to Interventional Radiology Isaura Wynn APRN [address] [facility] [address] [place] [address] Phone: tel: fax: Referral ID Status Reason Start Date Expiration Date Visits Re quested Visits Authorized [id number] Closed 11/18/2024 05/20/2026 1 1 Encounter Details Date Type Department Care Team (Latest Contact Info) Description 12/01/2024 8:41 AM EDT - 12/01/2024 11:59 PM EDT Hospital Encounter [facility] A Interventional Radiology [address] [place] [address] Gela Singer Thrombocytopenia (CMS/HCC) (Primary Dx); Myelodysplasia [...] drink first t manav in the morning (EYE-PATIENT SERVICES ASSISTANT) to steady your nerves or to [...] call: Vascular & Interventional Radiology Clinic at [phone] Sunday - Sunday 8:00 AM to 4:30 PM After hours, weekends, and holidays please call [phone] and ask for the Interventional Radiology provider/Resident on-call For Emergencies please go to the nearest Emergency Room or dial 911. Intervention Radiology Appointments: If you need to reschedule a procedure, please call our Schedulers at [phone], option 4. If you need to schedule or reschedule a clinic appointment, please call [phone]. [facility] Vascular and Interventional Radiology Clinic [facility] [address] [place] [address] documented in this encounter Medications at Time of Discharge acyclovir (Zovirax) 800 MG tabletIndications :Myelodysplasia (myelodysplastic syndrome) (CMS/HCC) Take 1 tablet (800 mg) by mouth in the morning and 1 tablet (800 mg) before bedtime. 60 tablet 3 10/14/2024 bisoprolol (Zebeta) 5 MG tabletIndications :Coronary artery disease involving [place] heart with angina pectoris, unspecified vessel or lesion type (CMS/HCC),Hyperte nsion, unspecified type Take 1 tablet (5 mg) by mouth daily. 90 tablet 3 09/11/2024 HYDROcodone-aceta minophen (Delight) 5-325 MG tablet Take 1 tablet by [...] MG SL tabletIndications :Coronary artery disease involving [place] heart with angina pectoris, unspecified vessel or lesion type (CMS/HCC) Place 1 tablet (0.4 mg) under the tongue every 5 (five) minutes as needed for chest pain. 10 tablet 11 09/11/2024 amLODIPine (Norvasc) 2.5 MG tabletIndications :Coronary artery disease involving [place] heart with angina pectoris, unspecified vessel or [...] flushed every [address] the [facility] Hematology Program Clinic if this is not set up. ?? What is used to flush it? It will be flushed with NS and Heparin flush. ?? Where will this happen? Either home health will come to you or you will go to the Infusion Center or the [facility] Clinic. Here is some contact information about [...] Radiology Brief Postprocedure Note Attending: Dr. Lee Cosmetic Maker: Dr. Hernandez Pre-operative Diagnosis: AML, need for [...] been discussed with the patient and/or their district representative. All questions answered and they agree [...] daily., Disp: 90 tablet, Rfl: 3 HYDROcodone-acetaminophen (Delight) 5-325 MG tablet, Take 1 tablet by [...] Appointment PAV A Interventional Radiology [address] [place] [address] Hussain Calles RN 02/10/2025 8:30 AM EDT Clinical Support PAV Hematology/BMT and Cellular Therapy Program [address] [address] 02/10/2025 9:00 AM EDT Office Visit PAV Hematology/BMT and Cellular Therapy Program [address] [place] [address] Elaina Boss, ARAM 800 [facility] [address] [place] [address] 02/10/2025 10:30 AM EDT Appointment [facility] Infusion Clinic 1 [address] [place] [address] 02/11/2025 2:00 PM EDT Appointment P[facility] Infusion Clinic 1 [address] [place] [address] 02/12/2025 2:00 PM EDT Appointment [facility] Infusion Clinic 1 [address] [place] [address] 02/13/2025 2:00 PM EDT Appointment [facility] Infusion Clinic 1 [address] [place] [address] 02/14/2025 2:00 PM EDT Appointment [facility] Infusion Clinic 1 [address] [place] [address] 03/10/2025 8:30 AM EDT Clinical Support PAV Hematology/BMT and Cellular Therapy Program 750 [facility] [place] [address] 03/10/2025 9:00 AM EDT Office Visit PAV Hematology/BMT and Cellular Therapy Program [address] [facility] [place] [address] Isaura Wynn, PREFORM PLATE MAKER [address] [facility] [address] [place] [address] 03/10/2025 11:20 AM EDT Office Visit Pav Head, Neck & Respiratory 800 [facility], 2nd [place] [address] Elsa Razo, PREFORM PLATE MAKER [address] [place] [address] Scheduled Referrals Name Type Priority Associated Diagnoses Order Schedule Discharge Ambulatory referral to [facility] Outpatient Referral Routine Myelodysplasia (myelodysplastic [...] for port placement. New AML, starting chemotherapy. Intake Clinician: Mckinley Lee MD Secondary Mobile Plant Operators: Dr. David Holt Rad Dose: 6 mGy [...] was placed supine on the fluoro table. Image Processing Engineer ultrasonography revealed the vein to be compressible [...] with no evidence of complication. Device: 6 Singaporean port catheter cut to length of 25 cm. COMPARISON: None. FINDINGS: Patent R IJV COMPLICATION: No. Procedure Note Mckinley Lee MD - 12/02/2024 CLINICAL INDICATION: 69M here for port placement. New AML, starting chemotherapy. Intake Clinician: Mckinley Lee MD Secondary Mobile Plant Operators: Dr. David Holt Rad Dose: 6 mGy [...] patient was placed supine on the fluoro table.Image Processing Engineer ultrasonography revealed the vein to be compressible [...] well with no evidence ofcomplication. Device: 6 Singaporean port catheter cut to length of 25 cm. COMPARISON: None. FINDINGS: Patent R IJV COMPLICATION: No. IMPRESSION: Successful placement of subcutaneous chest port; line is ready for use.Tip is at cavoatrial junction. PLAN: Postprocedural monitoring for 30 minutes Follow-up in VIR clinic in 1 week Line is ready for use. CRITICAL RESULT: No. COMMUNICATION: Per this written report. Preliminary report signed by вИан Hernandez MD on 12/01/2024 12:52PM By electronically signing this report, I, the attending physician, attestthat I was present for the entire procedure(s) and agree with the finaledited report. Drafted by Иван Hernandez MD on 12/01/2024 12:45 PM Final report signed by Mckinley Lee MD on 12/02/2024 7:02 AM Isaura Wynn PREFORM PLATE MAKER IMG IR PROCEDURES Final Result * Transfuse [...] ORDERAB LES Final Result BLOOD BANK [address] [place] [address], * (ABNORMAL) WBC Differential (12/01/2024 9:39 AM [...] sult [facility] [address] [place] [address] * (ABNORMAL) CBC (12/01/2024 9:39 AM EDT) [...] ORDERABLES Final R esult Performing Organization Address City/[facility]/ZIP Co de Phone Number [facility] [address] [place] [address] * Prepare Leukocyte Reduced Platelets: 1 Units, Irradiated (12/01/2024 8:52 AM EDT) [facility] Product Code [id number] BLOO D BANK Dispense Status Transfused BLOOD BANK Blood Expiration Date [id number] BLOOD BANK Unit Number [id number] CH B LOOD BANK Product Blood Type 6200 BLOOD BANK Blood Type A+ BLOOD BANK Blood Venous blood specimen / Unknown Mckinley Lee MD BLOOD BANK PRODUCT ORDERABLE S Final Result Performing Organization Address City/State/[facility] Co de Phone Number BLOOD BANK [address] documented in this encounter Visit Diagnoses [...] mL Right Neck lidocaine-EPINEPHrine (Xylocaine W/EPI) 1 %-1:287828 injection As needed, Starting on Sun12/01/24 at [...] documented as of this encounter Care Teams Import Export Coordinator Relationship Specialty Start Date End Date Zhao Harris MD [address] [place], [facility] PCP - General 12/03/20 documented as of this encounter
--- OUTSIDE RECORDS SUMMARY | 2024-12-09 08:30 | XMS_ITS | Encounter Summary ---
Author Organization [facility] Address [address] [place] [address] Care Team Providers Care Employee Relations Consultant Name Role Phone Zhao Harris MD Primary Care Provider [phone] Reason for Visit * Reason Comments Labs Nurse Visit Encounter Details Date Type Department Care Team ([facility] Contact Info) Description 12/09/2024 8:30 AM EDT Clinical Support PAV CC Hematology/BMT and Cellular Therapy Program [address] [place] [address] [place] [address] Social History Tobacco Use Types Packs/Day Years [...] drink first t manav in the morning (EYE-FRONT END DEVELOPER DESIGNER) to steady your nerves or to get [...] Appointment PAV A Interventional Radiology [address] [place] [address] Hussain Calles, BRIAN 02/10/2025 8:30 AM EDT Clinical Support PAV CC Hematology/BMT and Cellular Therapy Program [address] [address] 02/10/2025 9:00 AM EDT Office Visit PAV Hematology/BMT and Cellular Therapy Program [address] [address] Elaina Boss, PA 800 [facility] [address] [place] [address] 02/10/2025 10:30 AM EDT Appointment [facility] Infusion [facility] 1 744 [place] [address] 02/11/2025 2:00 PM EDT Appointment [facility] Infusion [facility] 1 [address] [place] [address] 02/12/2025 2:00 PM EDT Appointment [facility] Infusion [facility] 1 [address] [place] [address] 02/13/2025 2:00 PM EDT Appointment [facility] Infusion [facility] 1 [address] [place] [address] 02/14/2025 2:00 PM EDT Appointment [facility] Infusion [facility] 1 [address] [place] [address] 03/10/2025 8:30 AM EDT Clinical Support PAV CC Hematology/BMT and Cellular Therapy Program 750 [facility] [place] [address] 03/10/2025 9:00 AM EDT Office Visit PAV Hematology/BMT and Cellular Therapy Program 750 [facility] [place] [phone] Isaura Wynn, TAX REVENUE OFFICER 800 [facility] [address]st [place] [phone] 03/10/2025 11:20 AM EDT Office Visit Pav CC Head, Neck & Respiratory 800 [facility], 2nd [place] [address] Elsa Razo, TAX REVENUE OFFICER 800 [place] [phone] documented as of this encounter Visit Diagnoses [...] documented as of this encounter Care Teams Employee Relations Consultant Relationship Specialty Start Date End Date Zhao Harris MD [facility] [address] [address] PCP - General 12/03/20 documented as of this encounter
--- OUTSIDE RECORDS SUMMARY | 2024-12-09 09:00 | XMS_ITS | Encounter Summary ---
Author Organization [facility] Address [address] [place] [address] Care Team Providers Care Data Management Analyst Name Role Phone Zhao Harris MD Primary Care Provider + [phone] Reason for Visit * Reason Comments Procedure * Genetic Testing (Routine) - Authorized Specialty Diagnoses / Procedures Referred By Justice [email or web address] Referred To Contact Lab Diagnoses Myelodysplasia (myelodysplastic syndrome) (CMS/HCC) Procedures Leukemia/Lymphoma - Immunophenotyping by Flow Cytometry Virgen Vargas MD [address] [facility] [address] [address] Phone: tel: fax: Referral ID Status Reason Start Date Expiration Date V isits Requested Visits Authorized [id number] Authorized 11/18/2024 05/20/2026 1 1 Encounter Details Date Type Department Care Team (Latest Contact Info) Description 12/09/2024 9:00 AM EDT Procedure Visit [facility] Hematology/BMT and Cellular Therapy Program [address] [place] [address] Kierra Novak APRN [address] [facility] [address] [address] Myelodysplasia (myelodysplastic syndrome) (CMS/HCC) Social [...] drink first t manav in the morning (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-TAX 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) to steady your nerves or to [...] yes Risks discussed: Bleeding, infection and pain Hanna protocol: Procedure explained and questions answered to [...] Encounters Date Type Department Care Team ([facility] st Contact Info) Description 02/02/2025 11:00 AM EDT Appointment [facility] A Interventional Radiology [address] [place] [address] Hussain Calles RN 02/10/2025 8:30 AM EDT Clinical Support [facility] Hematology/BMT and Cellular Therapy Program [address] [address] 02/10/2025 9:00 AM EDT Office Visit [facility] Hematology/BMT and Cellular Therapy Program [address] [address] Elaina Boss PA 800 [facility] [address] [place] [phone] 02/10/2025 10:30 AM EDT Appointment [facility] Infusion Clinic [address] [place] [address] 02/11/2025 2:00 PM EDT Appointment [facility] Infusion [facility] 1 [address] [place] [address] 02/12/2025 2:00 PM EDT Appointment [facility] 1 [address] [place] [address] 02/13/2025 2:00 PM EDT Appointment [facility] Infusion [facility] 1 [address] [place] [address] 02/14/2025 2:00 PM EDT Appointment [facility] Infusion Clinic [address] [place] [address] 03/10/2025 8:30 AM EDT Clinical Support [facility] Hematology/BMT and Cellular Therapy Program [address] [address] 03/10/2025 9:00 AM EDT Office Visit [facility] Hematology/BMT and Cellular Therapy Program [address] [address] Isaura Wynn, PERIOPERATIVE EDUCATOR 800 [facility] [address] [place] [phone] 03/10/2025 11:20 AM EDT Office Visit [facility] CC Head, Neck & Respiratory 800 [facility], 2nd [place] [address] Elsa Razo, PERIOPERATIVE EDUCATOR [address] [place] [address] documented as of this encounter Procedures Procedure Name Priority Date/Time Associated Diagnosis Comments CYTOGENETICS TESTING, ONCOLOGY Routine 12/09/2024 10:15 AM EDT Myelodysplasia (myelodysplastic syndrome) ([facility]/HCC) CHROMOSOME KARYOTYPE, ONCOLOGY Routine 12/09/2024 10:15 [...] Type Bone Marrow 12/16/2024 5:59 PM EDT [facility] Clinical Indication Acute Myeloid Leukemia 12/16/2024 5:59 PM EDT [facility] Specimen Adequacy Adequate 025 5:59 PM EDT [facility] Chromosome Analysis Result Giemsa-banded metaphase cells from unstimulated bone marrow cultures showed the following chromosome pattern: 43~45,X,-Y,t(4;1 4)(q21;q32),add( 5)(q13),add(16)( q11.2),-17,add(2 0)(q11.2)[cp13]/ 46,XY[7] 12/16/2024 5:59 PM EDT [facility] Interpretation Abnormal male chromosome [...] were observed on this patient's previous specimen [id number] and indicate persistent disease. Clinical correlation is recommended. Note: Per [employer] (CAP) requirement additional karyotypes were performed and charged due to the presence of clonal abnormalities. # cells counted = 20 # cells analyzed = 20 # cells karyotyped = 3 Band resolution: 400 12/16/2024 5:59 PM EDT [facility] Pathologist Signature Reviewed by: Mesfin Rae 12/16/2024 5:59 PM EDT [facility] Bone Marrow Non-blood Collection / Unknown 12/09/2024 10:15 AM EDT 12/09/2024 12:48 PM EDT us Virgen Vargas MD LAB CYTOGENETICS ORDERABLES F inal Result [facility] [address] [place] [address] * Leukemia/Lymphoma - Immunophenotyping by Flow Cytometry (12/09/2024 10:15 AM EDT) Clinical Indication AML 12/10/2024 8:51 AM EDT [facility] Flow Cytometry Interpretation APPROXIMATELY 23% POPULATION OF CD34 POSITIVE MYELOID BLASTS EXPRESSING CD34, CD117, CD13, CD33, HLA-DR, PARTIAL CD7, VARIABLE CD123, PARTIAL CD38, AND MODERATE CD45, SEE COMMENT, BONE MARROW ASPIRATE. 12/10/2024 8:51 AM EDT [facility] Comments Specimen viability is [...] light chains, CD123 12/10/2024 8:51 AM EDT [facility] Disclaimer This test was developed [...] on the report. 12/10/2024 8:51 AM EDT [facility] Pathologist Signature Reviewed by: Gerry Jensen MD 12/10/2024 8:51 AM EDT [facility] MRD Indicated Test Not Indicated 8:51 AM EDT [facility] Bone Marrow Specimen from bone marrow obtained by aspiration / Unknown Non-blood Collection / Unknown 12/09/2024 10:15 AM EDT 12/09/2024 11:28 AM EDT us Virgen Vargas MD LAB FLOW CYTOMETRY ORDERABLES Final Result [facility] [address] [place] [address] * Bone marrow exam (12/09/2024 10:15 AM EDT) Case Report Bone Marrow Case: [id number] Authorizing Provider: Virgen Vargas MD Collected: 12/09/2024 1015 Ordering Location: [facility] Hematology/BMT and Received: 12/09/2024 1145 Cellular Therapy Program Pathologist: Gerry Jensen MD Specimens: A) - Bone Marrow Aspirate, right B) - Bone Marrow Biopsy, right C) - Peripheral Blood for Bone Marrow 12/19/2024 5:35 PM EDT [facility] Cytogenetics Report, Addendum Chromosome [...] were observed on this patient's previous specimen [id number] and indicate persistent disease. 12/19/2024 5:35 PM EDT [facility] Addendum electronically signed by Gerry Jensen MD on 12/19/2024 at 1735 EDT Final Diagnosis PERIPHERAL BLOOD AND BONE MARROW, RIGHT POSTERIOR ILIAC CREST, (PERIPHERAL SMEAR, ASPIRATE SMEAR, AND CORE BIOPSY): - NORMOCELLULAR BONE MARROW WITH ERYTHROID HYPERPLASIA, VIRTUALLY ABSENT MATURING GRANULOPOIESIS, AND 14% BLASTS, SEE COMMENT. 12/19/2024 5:35 PM EDT [facility] at 1706 EDT Comment While by flow cytometric analysis blasts constitute 23% of cellularity, the majority of bone marrow cellularity consists of erythroid precursors that are removed by flow cytometry. This leads to the discrepancy between the percentage of blasts by flow cytometry and morphologic examination. Nonetheless, the findings are consistent with some residual disease. 12/19/2024 5:35 PM EDT [facility] Clinical Information AML s/p cycle 2 12/19/2024 5:35 PM EDT [facility] CBC and Differential PERIPHERAL [...] Platelets are decreased. 12/19/2024 5:[address] [facility] Bone Marrow Differential BONE MARROW DIFFERENTIAL: 400 cells Normal Patient Neutrophils 15-50 0 Metamyelocytes 4-19 0 Myelocytes 1-18 1 Promyelocytes 1-8 0 Blasts 0-2 14 Monocytes 0-5 3 Erythroid 16-38 76 Lymphocytes 3-24 1 Eosinophils 0-6 0 Basophils 0-2 0 Plasma cells 0-4 5 Other 12/19/2024 5:35 PM EDT [facility] Aspirate Smear The bone [...] predominantly normal morphology. 12/19/2024 5:35 PM T [facility] Core Biopsy The core biopsy is small and shows 5 mm of a normocellular bone marrow with a cellularity of approximately 30% that is predominantly comprised of erythroid precursors. Erythropoiesis is left-shifted, but maturing. Maturing granulopoiesis is virtually absent. Myeloid cells almost entirely consists of immature precursors. Megakaryocytes are decreased and exhibit predominantly normal morphology. 12/19/2024 5:35 PM EDT [facility] Flow Cytometry Interpretation Flow cytometric analysis shows approximately 23% population of CD34 positive myeloid blasts expressing CD34, CD117, CD13, CD33, HLA-DR, partial CD7, variable CD123, partial CD38, and moderate CD45 ([id number]). 12/19/2024 5:[address] [facility] Gross Description B. RIGHT A single specimen is received in formalin labeled bone marrow biopsy right posterior iliac crest and consists of 1 piece(s) of red/white tissue measuring 0.7 cm in length 0.2 cm in diameter. The specimen is submitted in to Histology for decalcification and routine processing. Cold Time: <1m 12/19/2024 5:35 PM EDT [facility] Note: A resident was involved in the service. I attest I examined the relevant preparations for the specimens and confirmed the diagnosis or interpretation. 12/19/2024 5:35 PM EDT [facility] Bone Marrow Peripheral blood [...] PATHOLOGY ORDERABLES Edit ed Result - Final [facility] [address] [place] [address] * BIOPSY BONE MARROW (12/09/2024 10:00 AM EDT) Narrative Kierra Novak APRN - 12/09/2024 10:00 AM EDT Kierra Novak APRN 12/09/2024 12:08 PM Biopsy bone marrow Date/Time: 12/09/2024 10:00 AM Performed by: Kierra Novak APRN Authorized by: Kierra Novak APRN Consent: Consent obtained: Written Consent given by: Patient Risks, benefits, and alternatives were discussed: yes Risks discussed: Bleeding, infection and pain Hanna protocol: Procedure explained and questions answered to [...] Tolerated well, no immediate complications Kierra Novak PERIOPERATIVE EDUCATOR IN CLINIC/BEDSIDE ORDERAB LES Final Result * [...] ORDERABLE S Final Result Performing Organization Address City/[facility]/ZIP Co de Phone Number BLOOD BANK [address] [place] [address], * Morphology (12/09/2024 8:45 AM EDT) Elliptocytes/ Ovalocytes Present LAB HEMATOLOGY METHOD 12/09/2024 11:45 AM EDT [facility] RBC Morphology Slide Reviewed LAB HEMATOLOGY METHOD 12/09/2024 11:45 AM EDT [facility] Platelet Estimate Platelet smear estimate consistent with automated count LAB HEMATOLOGY METHOD 12/09/2024 11:45 AM EDT [facility] Blood Venous blood specimen / Unknown Venipuncture / Unknown 12/09/2024 8:45 AM EDT 12/09/2024 8:56 AM EDT Virgen Vargas MD LAB BLOOD ORDERABLES Final Re sult [facility] [address] [place] [address] * (ABNORMAL) Manual Differential (12/09/2024 8:45 AM EDT) Blasts % 1 % LAB HEMATOLOGY METHOD 12/09/2024 11:45 AM EDT [facility] Promyelocytes % 0 % LAB [...] 11:45 AM EDT [facility] Monocytes % 2 % LAB HEMATOLOGY METHOD 12/09/2024 11:45 AM EDT [facility] Eosinophils % 0 % LAB HEMATOLOGY METHOD 12/09/2024 11:45 AM EDT [facility] Basophils % 0 % LAB HEMATOLOGY METHOD 12/09/2024 11:45 AM EDT [facility] Blasts Absolute 0.01 10*3/UL LAB HEMATOLOGY METHOD 12/09/2024 11:45 AM EDT [facility] Promyelocytes Absolute 0.00 10*3/uL LAB HEMATOLOGY METHOD 12/09/2024 11:45 AM EDT [facility] Myelocytes Absolute 0.00 10*3/uL LAB HEMATOLOGY METHOD 12/09/2024 11:45 AM EDT [facility] Metamyelocytes Absolute 0.00 10*3/uL LAB HEMATOLOGY METHOD 12/09/2024 11:45 AM EDT [facility] Neutrophils Absolute 0.07(LL) 1.60 - 6.10 10*3/uL LAB HEMATOLOGY METHOD 12/09/2024 11:45 AM EDT [facility] Lymphocytes Absolute 0.59(L) 1.20 - 3.90 10*3/uL LAB HEMATOLOGY METHOD 12/09/2024 11:45 AM EDT [facility] Reactive Lymphocytes Absolute 0.00 10*3/uL LAB HEMATOLOGY METHOD 12/09/2024 11:45 AM EDT [facility] Monocytes Absolute 0.01(L) 0.30 - 0.90 10*3/uL LAB HEMATOLOGY METHOD 12/09/2024 11:45 AM EDT [facility] Eosinophils Absolute 0.00 0.00 - 0.50 10*3/uL LAB HEMATOLOGY METHOD 12/09/2024 11:45 AM EDT [facility] Basophils Absolute 0.00 0.00 - 0.10 10*3/uL LAB HEMATOLOGY METHOD 12/09/2024 11:45 AM EDT [facility] Blood Venous blood specimen / Unknown Venipuncture / Unknown 12/09/2024 8:45 AM EDT 12/09/2024 8:56 AM EDT Virgen Vargas MD LAB BLOOD ORDERABLES Final Re sult Performing Organization Address City/[facility]/ZIP Co de Phone Number [facility] [address] [place] [address] * Peripheral blood smear, pathologist interpretation (12/09/2024 8:45 AM EDT) Clinical Diagnosis, Peripheral Smear AML under therapy LAB HEMATOLOGY METHOD 12/09/2024 11:39 AM EDT [facility] Interpretation , Peripheral Smear Pancytopenia with rare circulating blast. A resident was involved in the service. I attest I examined the relevant preparations for the specimens and confirmed the diagnosis or interpretation. 12/09/2024 11:39 AM EDT [facility] Pathologist Signature, Peripheral Smear 12/09/2024 11:39 AM EDT [facility] Comment:Reviewed by: Martha Lopez MD LAB CP ASR DISCLAIMER Yes 12/09/2024 11:39 AM EDT [facility] Blood Venous blood specimen / Unknown Venipuncture / Unknown 12/09/2024 8:45 AM EDT 12/09/2024 8:56 AM EDT Virgen Vargas MD LAB PATHOLOGY ORDERABLES Terri l Result Performing Organization Address City/[facility]/ZIP Co de Phone Number [facility] [address] [place] [address] * (ABNORMAL) Comprehensive metabolic panel (12/09/2024 8:45 AM EDT) Glucose, Plasma 103(H) 74 - 99 mg/dL 12/09/2024 9:33 AM EDT [facility] BUN, Plasma 9 8 - 23 mg/dL 12/09/2024 9:33 AM EDT [facility] Creatinine, Plasma 0.78 0.70 - 1.20 mg/dL 12/09/2024 9:33 AM EDT [facility] BUN/Creatinine Ratio 12 12/09/2024 9:33 AM EDT [facility] Sodium, Plasma 140 136 - 145 mmol/L 12/09/2024 9:33 AM EDT [facility] Potassium, Plasma 3.9 3.6 - 4.9 mmol/L 12/09/2024 9:33 AM EDT [facility] Chloride, Plasma 109(H) 97 - 107 mmol/L 12/09/2024 9:33 AM EDT [facility] CO2, Plasma 21(L) 22 - 29 mmol/L 12/09/2024 9:33 AM EDT [facility] Anion Gap 10 6 - 16 mmol/L 12/09/2024 9:33 AM EDT [facility] Total Calcium, Plasma 9.0 8.9 - 10.2 mg/dL 12/09/2024 9:33 AM EDT [facility] Total Protein 6.6 6.3 - 7.9 g/dL 12/09/2024 9:33 AM EDT [facility] Albumin, Plasma 3.9 3.5 - 5.2 g/dL 12/09/2024 9:33 AM EDT [facility] AST, Plasma 31 10 - 50 U/L 12/09/2024 9:33 AM EDT [facility] ALT, Plasma 37 10 - 50 U/L 12/09/2024 9:33 AM EDT [facility] Alkaline Phosphatase, Plasma 81 40 - 115 U/L 12/09/2024 9:33 AM EDT [facility] Total Bilirubin, Plasma 0.6 0.2 - 1.1 mg/dL 12/09/2024 9:33 AM EDT [facility] eGFRcr 96.5 mL/min/1.7 3m*2 12/09/2024 9:33 AM EDT [facility] Comment:Reported eGFRcr in m L/min/1.73m2 is based the CKD-EPI 2020 equation that does not use a race coefficient. Blood Venous blood specimen / Unknown Venipuncture / Unknown 12/09/2024 8:45 AM EDT 12/09/2024 9:01 AM EDT us Virgen Vargas MD LAB BLOOD ORDERABLES Final Re sult [facility] [address] [place] [address] * (ABNORMAL) CBC and differential (12/09/2024 8:45 AM EDT) WBC Count 0.68(LL) 3.70 - 10.30 10*3/uL LAB HEMATOLOGY METHOD 12/09/2024 11:45 AM EDT [facility] RBC Count 2.34(L) 4.60 - 6.10 10*6/uL LAB HEMATOLOGY METHOD 12/09/2024 11:45 AM EDT [facility] HGB 7.5(L) 13.7 - 17.5 g/dL LAB HEMATOLOGY METHOD 12/09/2024 11:45 AM EDT [facility] HCT 20.6(L) 40.0 - 51.0 % LAB HEMATOLOGY METHOD 12/09/2024 11:45 AM EDT [facility] Platelet Count 24(L) 155 - 369 10*3/uL LAB HEMATOLOGY METHOD 12/09/2024 11:45 AM EDT [facility] MCV 88 79 - 98 fL LAB HEMATOLOGY METHOD 12/09/2024 11:45 AM EDT [facility] MCH 32.1(H) 26.0 - 32.0 pg LAB HEMATOLOGY METHOD 12/09/2024 11:45 AM EDT [facility] MCHC 36.4(H) 30.7 - 35.5 g/dL LAB HEMATOLOGY METHOD 12/09/2024 11:45 AM EDT [facility] RDW 17.1(H) 11.5 - 14.5 % LAB HEMATOLOGY METHOD 12/09/2024 11:45 AM EDT [facility] MPV 9.2 8.8 - 12.5 fL LAB HEMATOLOGY METHOD 12/09/2024 11:45 AM EDT [facility] nRBC 2.9(H) <=0.0 per 100 WBCs LAB HEMATOLOGY METHOD 12/09/2024 11:45 AM EDT [facility] Differential Type Manual LAB HEMATOLOGY METHOD 12/09/2024 11:45 AM EDT [facility] Blood Venous blood specimen / Unknown Venipuncture / Unknown 12/09/2024 8:45 AM EDT 12/09/2024 8:56 AM EDT Narrative [facility] - 12/09/2024 11:45 AM EDT [...] MD LAB BLOOD ORDERABLES Final Re sult [facility] [address] [place] [address] documented in this encounter Visit Diagnoses Diagnosis [...] documented as of this encounter Care Teams Data Management Analyst Relationship Specialty Start Date End Date Zhao Harris MD [address] [place], [place] [id number] PCP - General 12/03/20 documented as of this encounter
--- OUTSIDE RECORDS SUMMARY | 2024-12-09 13:30 | XMS_ITS | Encounter Summary ---
Author Organization [facility] Address [address] [place] [address] Care Team Providers Care Electronic Systems Security Assessment Name Role Phone Zhao Harris MD Primary Care Provider [phone] Reason for Visit * Reason Comments Follow-up Encounter Details Date Type Department Care Team (Latest Contact Info) Description 12/09/2024 1:30 PM EDT Clinical Support [facility] 800 [facility], 2nd [place] [phone] Myelodysplasia (myelodysplastic syndrome) (CMS/HCC) (Primary Dx); Thrombocytopenia [...] drink first t manav in the morning (EYE-LOOPER OPERATOR) to steady your nerves or to [...] Upcoming Encounters Date Type Department Care Team ([facility] st Contact Info) Description 02/02/2025 11:00 AM EDT Appointment P[facility] A Interventional Radiology [address] [place] [address] Hussain Calles RN 02/10/2025 8:30 AM EDT Clinical Support [facility] Hematology/BMT and Cellular Therapy Program [address] [place], [place] [address] [place] [address] 02/10/2025 9:00 AM EDT Office Visit PAV Hematology/BMT and Cellular Therapy Program [address] [phone] Elaina Boss, PA 800 [facility] [address] [place] [phone] 02/10/2025 10:30 AM EDT Appointment [facility] Infusion [facility] 1 744 [place] [address] 02/11/2025 2:00 PM EDT Appointment [facility] 1 [address] [place] [address] 02/12/2025 2:00 PM EDT Appointment [facility] 1 744 [place] [phone] 02/13/2025 2:00 PM EDT Appointment [facility] 1 7[address] [place] [address] 02/14/2025 2:00 PM EDT Appointment [facility] 1 [address] [place] [address] 03/10/2025 8:30 AM EDT Clinical Support [facility] Hematology/BMT and Cellular Therapy Program [address] [address] 03/10/2025 9:00 AM EDT Office Visit [facility] Hematology/BMT and Cellular Therapy Program [address] [address] Isaura Wynn, FACILITIES ENGINEER 800 [facility] [address] [place] [phone] 03/10/2025 11:20 AM EDT Office Visit Pav Head, Neck & Respiratory 800 [facility], 2nd [place] [phone] Elsa Razo, FACILITIES ENGINEER 800 [place] [address] documented as of this encounter Procedures Procedure Name Priority Date/Time Associated Diagnosis Comments PREPARE RBC Routine 12/09/2024 1:17 PM EDT Myelodysplasia (myelodysplastic syndrome) (CMS/HCC) Thrombocytopenia (CMS/HCC) documented in this encounter Results * Transfuse RBC, Irradiated (12/09/2024 3:57 PM EDT) us Kayli CHIU BLOOD TRANSFUSION ORDERA BLES Final Result * Prepare Leukocyte Reduced RBC: 1 Units, Irradiated (12/09/2024 1:17 PM EDT) Product Code [id number] CH BLOO D BANK Dispense Status Transfused BLOOD BANK Blood Expiration Date [id number] BLOOD BANK Unit Number [id number] B LOOD BANK Product Blood Type 9500 BLOOD BANK Blood Type O- BLOOD BANK Crossmatch Compatible BLOOD BANK Other us Kayli CHIU BLOOD BANK PRODUCT ORDER VIKAS Final Result BLOOD BANK 800 [place] [id number], documented in this encounter Visit Diagnoses Diagnosis [...] documented as of this encounter Care Teams Electronic Systems Security Assessment Relationship Specialty Start Date End Date Zhao Harris MD [address] [place], [place] [id number] PCP - General 12/03/20 documented as of this encounter
--- OUTSIDE RECORDS SUMMARY | 2024-12-11 08:30 | XMS_ITS | Encounter Summary ---
Author Organization [facility] Address [address] [place] [address] Care Team Providers Care Front Man Name Role Phone Zhao Harris MD Primary Care Provider [phone] Reason for Visit * Reason Comments Nurse Visit Labs Encounter Details Date Type Department Care Team (Latest Contact Info) Description 12/11/2024 8:30 AM EDT Clinical Support [facility] Hematology/BMT and Cellular Therapy Program [address] [place] [address] [place] [address] Myelodysplasia (myelodysplastic syndrome) (CMS/HCC) Social History Tobacco [...] drink first t manav in the morning (EYE-BULLDOZER PRESS OPERATOR) to steady your nerves or [...] Upcoming Encounters Date Type Department Care Team ([facility] st Contact Info) Description 02/02/2025 11:00 AM EDT Appointment P[facility] A Interventional Radiology [address] [place] [address] Hussain Calles RN 02/10/2025 8:30 AM EDT Clinical Support [facility] Hematology/BMT and Cellular Therapy Program [address] [place] [phone] 02/10/2025 9:00 AM EDT Office Visit [facility] Hematology/BMT and Cellular Therapy Program [address] [place] [phone] Elaina Boss, [place] 800 [facility] [address] [place] [phone] 02/10/2025 10:30 AM EDT Appointment [facility] Infusion Clinic [address] [place] [address] 02/11/2025 2:00 PM EDT Appointment [facility] Infusion [facility] [address] [place] [address] 02/12/2025 2:00 PM EDT Appointment [facility] [address] [place] [address] 02/13/2025 2:00 PM EDT Appointment [facility] [address] [place] [address] 02/14/2025 2:00 PM EDT Appointment [facility] [address] [place] [address] 03/10/2025 8:30 AM EDT Clinical Support [facility] CC Hematology/BMT and Cellular Therapy Program 750 [facility] [place] [phone] 03/10/2025 9:00 AM EDT Office Visit [facility] CC Hematology/BMT and Cellular Therapy Program 750 [facility], [address] [place] [phone] Isaura Wynn, JEWEL HOLE ROUGH OPENER 800 [facility] [address] [place] [phone] 03/10/2025 11:20 AM EDT Office Visit Pav CC Head, Neck & Respiratory 800 [facility], 2nd [place] [phone] Elsa Razo, JEWEL HOLE ROUGH OPENER [address] [place] [phone] documented as of this encounter Procedures Procedure [...] LAB HEMATOLOGY METHOD 12/11/2024 10:53 AM EDT [facility] RBC Morphology Slide Reviewed LAB HEMATOLOGY METHOD 12/11/2024 10:53 AM EDT [facility] Platelet Estimate Platelet smear estimate consistent with automated count LAB HEMATOLOGY METHOD 12/11/2024 10:53 AM EDT [facility] Blood Venous blood specimen / Unknown Venipuncture / Unknown 12/11/2024 8:38 AM EDT 12/11/2024 8:50 AM EDT Virgen Vargas MD LAB BLOOD ORDERABLES Final Re sult Performing Organization Address City/[facility] Co de Phone Number [facility] [address] [place] [address] * Peripheral blood smear, pathologist interpretation (12/11/2024 8:38 AM EDT) Clinical Diagnosis, Peripheral Smear History of acute myeloid leukemia (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 Dysplastic neutrophils (hypogranular) are noted. Moderate anemia and marked thrombocytopen ia. 12/11/2024 4:46 PM EDT [facility] Pathologist Signature, Peripheral Smear 12/11/2024 4:46 PM EDT [facility] Comment:Reviewed by: Omar Peralta MD Blood Venous blood specimen / Unknown Venipuncture / Unknown 12/11/2024 8:38 AM EDT 12/11/2024 8:50 AM EDT Virgen Vargas MD LAB PATHOLOGY ORDERABLES Terri l Result Performing Organization Address City/[facility]/ZIP Co de Phone Number [facility] [address] [place] [address] * (ABNORMAL) Manual Differential (12/11/2024 8:38 AM EDT) Pathologist [facility] Blasts % 1 % LAB HEMATOLOGY METHOD 12/11/2024 10:53 AM EDT [facility] Promyelocytes % 0 % LAB [...] LAB HEMATOLOGY METHOD 12/11/2024 10:53 AM EDT [facility] Blasts Absolute 0.01 10*3/UL LAB HEMATOLOGY METHOD 12/11/2024 10:53 AM EDT [facility] Promyelocytes Absolute 0.00 10*3/uL LAB HEMATOLOGY METHOD 12/11/2024 10:53 AM EDT [facility] Myelocytes Absolute 0.00 10*3/uL LAB HEMATOLOGY METHOD 12/11/2024 10:53 AM EDT [facility] Metamyelocytes Absolute 0.00 10*3/uL LAB HEMATOLOGY METHOD 12/11/2024 10:53 AM EDT [facility] Neutrophils Absolute 0.02(LL) 1.60 - 6.10 [...] LAB HEMATOLOGY METHOD 12/11/2024 10:53 AM EDT [facility] Blood Venous blood specimen / Unknown Venipuncture / Unknown 12/11/2024 8:38 AM EDT 12/11/2024 8:50 AM EDT us Virgen Vargas MD LAB BLOOD ORDERABLES Final Re sult [facility] [address] [place] [phone] * (ABNORMAL) CBC and differential (12/11/2024 8:38 AM EDT) WBC Count 0.61(LL) 3.70 - 10.30 10*3/uL LAB HEMATOLOGY METHOD 12/11/2024 10:54 AM EDT [facility] RBC Count 2.80(L) 4.60 - 6.10 10*6/uL LAB HEMATOLOGY METHOD 12/11/2024 10:54 AM EDT [facility] HGB 8.9(L) 13.7 - 17.5 g/dL LAB HEMATOLOGY METHOD 12/11/2024 10:54 AM EDT [facility] HCT 25.1(L) 40.0 - 51.0 % LAB HEMATOLOGY METHOD 12/11/2024 10:54 AM EDT [facility] Platelet Count 11(LL) 155 - 369 10*3/uL LAB HEMATOLOGY METHOD 12/11/2024 10:54 AM EDT [facility] MCV 90 79 - 98 fL LAB HEMATOLOGY METHOD 12/11/2024 10:54 AM EDT [facility] MCH 31.8 26.0 - 32.0 pg LAB HEMATOLOGY METHOD 12/11/2024 10:54 AM EDT [facility] MCHC 35.5 30.7 - 35.5 g/dL LAB HEMATOLOGY METHOD 12/11/2024 10:54 AM EDT [facility] RDW 16.2(H) 11.5 - 14.5 % LAB HEMATOLOGY METHOD 12/11/2024 10:54 AM EDT [facility] MPV 12.3 8.8 - 12.5 fL LAB HEMATOLOGY METHOD 12/11/2024 10:54 AM EDT [facility] nRBC 4.9(H) <=0.0 per 100 WBCs LAB HEMATOLOGY METHOD 12/11/2024 10:54 AM EDT [facility] Differential Type Manual LAB HEMATOLOGY METHOD 12/11/2024 10:54 AM EDT [facility] Blood Venous blood specimen [...] MD LAB BLOOD ORDERABLES Final Re sult [facility] [address] [place] [phone] * (ABNORMAL) Comprehensive Metabolic Panel, Plasma (12/11/2024 8:38 AM EDT) Glucose, Plasma 105(H) 74 - 99 mg/dL 12/11/2024 9:19 AM EDT [facility] BUN, Plasma 10 8 - 23 mg/dL 12/11/2024 9:19 AM EDT [facility] Creatinine, Plasma 0.75 0.70 - 1.20 mg/dL 12/11/2024 9:19 AM EDT [facility] BUN/Creatinine Ratio 13 12/11/2024 9:19 AM EDT [facility] Sodium, Plasma 140 136 - 145 mmol/L 12/11/2024 9:19 AM EDT [facility] Potassium, Plasma 4.1 3.6 - 4.9 mmol/L 12/11/2024 9:19 AM EDT [facility] Chloride, Plasma 110(H) 97 - 107 mmol/L 12/11/2024 9:19 AM EDT [facility] CO2, Plasma 22 22 - 29 mmol/L 12/11/2024 9:19 AM EDT [facility] Anion Gap 8 6 - 16 mmol/L 12/11/2024 9:19 AM EDT [facility] Total Calcium, Plasma 9.1 8.9 - 10.2 mg/dL 12/11/2024 9:19 AM EDT [facility] Total Protein 6.9 6.3 - 7.9 g/dL 12/11/2024 9:19 AM EDT [facility] Albumin, Plasma 4.0 3.5 - 5.2 g/dL 12/11/2024 9:19 AM EDT [facility] AST, Plasma 38 10 - 50 U/L 12/11/2024 9:19 AM EDT [facility] ALT, Plasma 40 10 - 50 U/L 12/11/2024 9:19 AM EDT [facility] Alkaline Phosphatase, Plasma 86 40 - 115 U/L 12/11/2024 9:19 AM EDT [facility] Total Bilirubin, Plasma 0.6 0.2 - 1.1 mg/dL 12/11/2024 9:19 AM EDT [facility] eGFRcr 97.7 mL/min/1.7 3m*2 12/11/2024 9:19 AM EDT [facility] Comment:Reported eGFRcr in m L/min/1.73m2 is based the CKD-EPI 2020 equation that does not use a race coefficient. Blood Venous blood specimen / Unknown Venipuncture / Unknown 12/11/2024 8:38 AM EDT 12/11/2024 8:50 AM EDT us Virgen Vargas MD LAB BLOOD ORDERABLES Final Re sult [facility] [address] [place] [address] documented in this encounter Visit Diagnoses Diagnosis [...] documented as of this encounter Care Teams Front Man Relationship Specialty Start Date End Date Zhao Harris MD [address] [place] [address] PCP - General 12/03/20 documented as of this encounter
--- OUTSIDE RECORDS SUMMARY | 2024-12-11 09:00 | XMS_ITS | Encounter Summary ---
Author Organization [facility] Address [address] 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) Virgen Vargas MD 800 [facility] Cancer [address] [address] Phone: tel: fax: Referral ID Status Reason Start Date Expiration Date V isits Requested Visits Authorized [id number] Closed Specialty Services Required 12/11/2024 06/12/2026 1 1 Encounter Details Date Type Department Care Team (Latest Contact Info) Description 12/11/2024 9:00 AM EDT Office Visit [facility] Hematology/BMT and Cellular Therapy Program [address] [place] [phone] Virgen Vargas MD 800 [facility] Cancer [address] [address] Myelodysplasia (myelodysplastic syndrome) (CMS/HCC) (Primary [...] drink first t manav in the morning (EYE-PECAN HULLER) to steady your nerves or to get [...] a preserved mata-T cell profile with a CD4:JO6vpakd of 2.7:1. Polyclonal B-cells (3%) and a small plasma cell population (0.6%) were also identified. Cytogenetics: Normal. Molecular Testing: PCR for NPM1 and FLT3 mutations are negative. Next-generation sequencing (NGS) myeloid panel: ASXL1 - p.[id number] - VAF 25% TP53 - p.[id number] - VAF 36% U2AF1 - p.[id number] - VAF 33% 10/20/2024- started treatment with [...] a durable remission in the context of EG32-pqdyjkh AML. The third, and most promising, option would be enrollment in a clinical trial, ideally one that targets TP53- mutant disease or incorporates novel agents. Unfortunately, there are no active trials available locally or at [facility], but I have reached out to Dr. Fernandes at [facility] to explore any opportunities there. We [...] in completing the documentation. Virgen Vargas M.D. Electrician Research Division of Hematology/BMT [facility] [1] Current Outpatient Medications: acyclovir (Zovirax) 800 [...] constipation., Disp: 30 tablet, Rfl: 3 HYDROcodone-acetaminophen ([place]) 5-325 MG tablet, Take 1 tablet by [...] Appointment P[facility] A Interventional Radiology [address] [place] [address] Hussain Calles, BRIAN 02/10/2025 8:30 AM EDT Clinical Support [facility] Hematology/BMT and Cellular Therapy Program [address] [address] 02/10/2025 9:00 AM EDT Office Visit [facility] Hematology/BMT and Cellular Therapy Program [address] [address] Elaina Boss, PA 800 [facility]tr [address] [place] [address] 02/10/2025 10:30 AM EDT Appointment [facility] Infusion [facility] 1 [address] [place] [address] 02/11/2025 2:00 PM EDT Appointment [facility] 1 [address] [place] [address] 02/12/2025 2:00 PM EDT Appointment [facility] 1 [address] [place] [address] 02/13/2025 2:00 PM EDT Appointment [facility] 1 [address] [place] [address] 02/14/2025 2:00 PM EDT Appointment [facility] 1 [address] [place] [address] 03/10/2025 8:30 AM EDT Clinical Support [facility] Hematology/BMT and Cellular Therapy Program [address] [address] 03/10/2025 9:00 AM EDT Office Visit [facility] Hematology/BMT and Cellular Therapy Program [address] [address] Isaura Wynn, SHOULDER PUNCHER 800 [facility]tr [address] [place] [address] 03/10/2025 11:20 AM EDT Office Visit Pav CC Head, Neck & Respiratory 800 [facility], 2nd [place] [address] Elsa Razo, SHOULDER PUNCHER [address] [place] [phone] documented as of this encounter Visit Diagnoses [...] documented as of this encounter Care Teams Package Yarns Drying Machine Operator Relationship Specialty Start Date End Date Zhao Harris MD [address] [place] [address] PCP - General 12/03/20 documented as of this encounter
--- OUTSIDE RECORDS SUMMARY | 2024-12-11 13:00 | XMS_ITS | Encounter Summary ---
Author Organization [facility] Address [address] [place] [address] Care Team Providers Care Lockstitch Tunnel Elastic Operator Name Role Phone Zhao Harris MD Primary Care Provider [phone] Encounter Details Date Type Department Care Team (Latest Contact Info) Description 12/11/2024 1:00 PM EDT Clinical Support [facility] Cancer Acute Treatment [facility] [address] , 2nd [place] [address] Myelodysplasia (myelodysplastic syndrome) (CMS/HCC) (Primary Dx); Thrombocytopenia [...] drink first t manav in the morning (EYE-SILK SCREEN PRINTER MACHINE) to steady your nerves or to get [...] Appointment PAV A Interventional Radiology [address] [place] [address] Hussain Calles RN 02/10/2025 8:30 AM EDT Clinical Support [facility] Hematology/BMT and Cellular Therapy Program [address] [place] [address] 02/10/2025 9:00 AM EDT Office Visit [facility] Hematology/BMT and Cellular Therapy Program [address] [address] Elaina Boss, PA 800 [facility] [address] [place] [phone] 02/10/2025 10:30 AM EDT Appointment [facility] Infusion [facility] 1 744 [place] [address] 02/11/2025 2:00 PM EDT Appointment [facility]fusion [facility] 1 [address] [place] [address] 02/12/2025 2:00 PM EDT Appointment [facility]fusion [facility] 1 [address] [place] [address] 02/13/2025 2:00 PM EDT Appointment [facility]fusion [facility] 1 [address] [place] [address] 02/14/2025 2:00 PM EDT Appointment [facility]fusion [facility] 1 [address] [place] [address] 03/10/2025 8:30 AM EDT Clinical Support [facility] Hematology/BMT and Cellular Therapy Program [address] [place] [address] 03/10/2025 9:00 AM EDT Office Visit [facility] Hematology/BMT and Cellular Therapy Program [address] [place] [address] Isaura Wynn, ESTRELLA 800 [facility] [address] [place] [phone] 03/10/2025 11:20 AM EDT Office Visit Pav Head, Neck & Respiratory 800 [facility], 2nd [place] [address] Elsa Razo, PILLAR WORKER 800 [place] [address] documented as of this encounter [...] LAB HEMATOLOGY METHOD 12/11/2024 2:37 PM EDT [facility] Blood Venous blood specimen / Unknown Venipuncture / Unknown 12/11/2024 2:04 PM EDT 12/11/2024 2:34 PM EDT Glenroy Kim MD LAB BLOOD ORDERABLES Fi nal Result Performing Organization Address City/State/[facility] Co de Phone Number [facility] 800 [place] [address] * Prepare Leukocyte Reduced Platelets: 1 Units (12/11/2024 12:57 PM EDT) Product Code [id number] CH BLOO D BANK Dispense Status Transfused BLOOD BANK Blood Expiration Date BLOOD BANK Unit Number [id number] CH B LOOD BANK Product Blood Type 6200 BLOOD BANK Blood Type A+ CH BLOOD BANK Blood Venous blood specimen / Unknown Kayli CHIU BLOOD BANK PRODUCT ORDER VIKAS Final Result BLOOD BANK [address] documented in this encounter Visit Diagnoses [...] documented as of this encounter Care Teams Lockstitch Tunnel Elastic Operator Relationship Specialty Start Date End Date Zhao Harris MD [address] [place] [address] PCP - General 12/03/20 documented as of this encounter
--- OUTSIDE RECORDS SUMMARY | 2024-12-11 14:30 | XMS_ITS | Encounter Summary ---
Author Organization [facility] Address [address] [place] [address] Care Team Providers Care Belt Measurer Name Role Phone Zhao Harris MD Primary Care Provider [phone] Reason for Visit * Consultation (Routine) - Closed Specialty Diagnoses / Procedures Referred By Contact Referred To Contact Interventional Radiology Diagnoses Myelodysplasia (myelodysplastic syndrome) (CMS/HCC) Mckinley Lee MD [address] [place] [address] Phone: tel:[phone] fax:[phone] [facility] Vascular Interventional Radiology [address] [facility] Room [address] [place] [address] Phone: tel: Referral ID Status Reason Start Date Expiration Date V isits Requested Visits Authorized [id number] Closed Specialty Services Required 12/01/2024 06/02/2026 1 1 Encounter Details Date Type Department Care Team (Latest Contact Info) Description 12/11/2024 2:30 PM EDT Office Visit [facility] Vascular Interventional Radiology [address] [facility] Room [address] [place] [phone] Jduy Leung APRN, SHEEBA [address] [place] [address] Port-A-Cath in place (Primary Dx); [...] drink first t manav in the morning (EYE-ABRASIVE GRADER HELPER) to steady your nerves or to [...] Orders * Progress Notes - Judy Leung, PHOTONICS ENGINEER, DNP - 12/11/2024 2:30 PM EDT [...] been accessed. He is being referred to [facility] for possible trials. Allergies: Patient has [...] for port placement. New AML, starting chemotherapy. Chip Loft Worker: Mckinley Lee MD Secondary Commissary Clerk: Dr. David Holt Rad Dose: 6 mGy [...] was placed supine on the fluoro table. Charge Operator ultrasonography revealed the vein to be compressible [...] with no evidence of complication. Device: 6 [place]an port catheter cut to length of 25 [...] placement on 12/01/24 - Being referred to [facility] for possible trials PLAN: - Port accessed in clinic today and functioning well - Denies fever or chills; no drainage, swelling at site - Instructed to call with any signs of infection or malfunction - Return to [facility] PRN Medical Decision Making/Plan: Diagnoses and all orders for this visit: Port-A-Cath in place - heparin flush (porcine) 100 UNIT/ML injection 500 Units Myelodysplasia (myelodysplastic syndrome) (CMS/HCC) - Discharge Ambulatory referral to [facility] Clinic I spent 35 minutes on [...] daily., Disp: 90 tablet, Rfl: 3 HYDROcodone-acetaminophen ([place]) 5-325 MG tablet, Take 1 tablet by [...] Appointment PAV A Interventional Radiology [address] [place] [phone] Hussain Calles, BRIAN 02/10/2025 8:30 AM EDT Clinical Support PAV CC Hematology/BMT and Cellular Therapy Program [address] [place] [address] 02/10/2025 9:00 AM EDT Office Visit [facility] CC Hematology/BMT and Cellular Therapy Program [address] [phone] Elaina Boss, ARAM [address] [phone] 02/10/2025 10:30 AM EDT Appointment [facility] Infusion [facility] 1 [address] [place] [address] 02/11/2025 2:00 PM EDT Appointment [facility] 1 [address] [place] [address] 02/12/2025 2:00 PM EDT Appointment [facility]fusion [facility] 1 [address] [place] [address] 02/13/2025 2:00 PM EDT Appointment [facility] 1 [address] [place] [phone] 02/14/2025 2:00 PM EDT Appointment [facility]fusion [facility] 1 [address] [place] [address] 03/10/2025 8:30 AM EDT Clinical Support P[facility] Hematology/BMT and Cellular Therapy Program [address] [phone] 03/10/2025 9:00 AM EDT Office Visit [facility] Hematology/BMT and Cellular Therapy Program [address] [phone] Isaura Wynn, PHOTONICS ENGINEER [address] [place] [facility] Cancer [address] [phone] 03/10/2025 11:20 AM EDT Office Visit Pav Head, Neck & Respiratory [address] [facility], 2nd [place] [phone] Elsa Razo, PHOTONICS ENGINEER [address] [place] [address] documented as of this encounter Procedures Procedure [...] 12/12/2024 8:43 AM EDT us Judy Leung PHOTONICS ENGINEER, DNP LAB BLOOD BANK TEST ORDE MAGNO Final Result BLOOD BANK [address] [place] [address], documented in this encounter Visit Diagnoses Diagnosis [...] as of this encounter Care Teams Belt Measurer Relationship Specialty Start Date End Date Zhao Harris MD [address] [place] [address] PCP - General 12/03/20 documented as of this encounter
--- OUTSIDE RECORDS SUMMARY | 2024-12-16 08:00 | XMS_ITS | Encounter Summary ---
Author Organization [facility] Address [address] [place] [address] Care Team Providers Care Chopper Gun Operator Name Role Phone Zhao Harris MD Primary Care Provider [phone] Reason for Visit * Reason Comments Labs Nurse Visit Encounter Details Date Type Department Care Team ([facility] Contact Info) Description 12/16/2024 8:00 AM EDT Clinical Support PAV CC Hematology/BMT and Cellular Therapy Program [address] [place] [address] [place] [address] Social History Tobacco Use Types Packs/Day Years [...] drink first t manav in the morning (EYE-SALES AND SERVICE TECHNICIAN) to steady your nerves or to [...] Appointment PAV A Interventional Radiology [address] [place] [address] Hussain Calles, BRIAN 02/10/2025 8:30 AM EDT Clinical Support PAV CC Hematology/BMT and Cellular Therapy Program [address] [address] 02/10/2025 9:00 AM EDT Office Visit PAV Hematology/BMT and Cellular Therapy Program [address] [address] Elaina Boss, PA 800 [facility] [address] [place] [address] 02/10/2025 10:30 AM EDT Appointment [facility] Infusion Clinic 1 7[address] [place] [address] 02/11/2025 2:00 PM EDT Appointment [facility] Infusion [facility] 1 [address] [place] [address] 02/12/2025 2:00 PM EDT Appointment [facility] Infusion [facility] 1 [address] [place] [address] 02/13/2025 2:00 PM EDT Appointment [facility] Infusion [facility] 1 [address] [place] [address] 02/14/2025 2:00 PM EDT Appointment [facility] Infusion [facility] 1 [address] [place] [address] 03/10/2025 8:30 AM EDT Clinical Support PAV CC Hematology/BMT and Cellular Therapy Program 750 [facility] [place] [address] 03/10/2025 9:00 AM EDT Office Visit PAV Hematology/BMT and Cellular Therapy Program 750 [facility] [place] [phone] Isaura Wynn, INCINERATOR PLANT LABORER 800 [facility] [address] [place] [address] 03/10/2025 11:20 AM EDT Office Visit Pav CC Head, Neck & Respiratory 800 [facility], 2nd [place] [address] Elsa Razo, INCINERATOR PLANT LABORER 800 [place] [address] documented as of this encounter Visit Diagnoses [...] documented as of this encounter Care Teams Chopper Gun Operator Relationship Specialty Start Date End Date Zhao Harris MD [facility] [address] [address] PCP - General 12/03/20 documented as of this encounter
--- OUTSIDE RECORDS SUMMARY | 2024-12-16 08:30 | XMS_ITS | Encounter Summary ---
Author Organization [facility] Address [address] [place] [address] Care Team Providers Care Resident Manager Name Role Phone Zhao Harris MD Primary Care Provider [phone] Reason for Referral * Genetic Testing (Routine) - Authorized Specialty Diagnoses / Procedures Referred By Justice t Referred To Contact Lab Diagnoses Myelodysplasia (myelodysplastic syndrome) (CMS/HCC) Procedures Leukemia/Lymphoma - Immunophenotyping by Flow Cytometry Virgen Vargas MD 800 [facility] [address] [address] Phone: tel: fax: Referral ID Status Reason Start Date Expiration Date V isits Requested Visits Authorized [id number] Authorized 12/18/2024 06/19/2026 1 1 * Genetic Testing (Routine) - Authorized Specialty Diagnoses / Procedures [facility] Referred To Contact Lab Diagnoses Myelodysplasia (myelodysplastic syndrome) (CMS/HCC) Procedures Bone marrow exam Virgen Vargas MD 800 [facility] [address] [address] Phone: tel: fax: Referral ID Status Reason Start Date Expiration Date V isits Requested Visits Authorized [id number] Authorized 12/18/2024 06/19/2026 1 1 Reason for Visit * Reason Comments Acute Myeloid Leukemia Encounter Details Date Type Department Care Team (Latest Contact Info) Description 12/16/2024 8:30 AM EDT Office Visit [facility] CC Hematology/BMT and Cellular Therapy Program [address] [facility], [address] [place] [address] Isaura Wynn, CODING SPECIALIST [address] [facility] [address] [place] [phone] Myelodysplasia (myelodysplastic syndrome) (CMS/HCC) (Primary Dx) Social [...] first t manav in the morning ([employer]) to steady your nerves or to get [...] Notes * Progress Notes - Isaura Wynn, CODING SPECIALIST - 12/16/2024 8:30 AM EDT HEMATOLOGY ONCOLOGY [...] a preserved mata-T cell profile with a CD4:VR5cdjwv of 2.7:1. Polyclonal B-cells (3%) and a small plasma cell population (0.6%) were also identified. Cytogenetics: Normal. Molecular Testing: PCR for NPM1 and FLT3 mutations are negative. Next-generation sequencing (NGS) myeloid panel: ASXL1 - p.[id number] - VAF 25% TP53 - p.[id number] - VAF 36% U2AF1 - p.[id number] - VAF 33% 10/20/2024- started treatment with [...] a durable remission in the context of [id number] AML. The third, and most promising, option would be enrollment in a clinical trial, ideally one that targets TP53- mutant disease or incorporates novel agents. Unfortunately, there are no active trials available locally or at [facility], but I have reached out to Dr. Fernandes at [facility] to explore any opportunities there. [...] daily., Disp: 90 tablet, Rfl: 3 HYDROcodone-acetaminophen ([place]) 5-325 MG tablet, Take 1 tablet by [...] History: N/A Plan: Venetoclax rx sent to [facility]. Refills due monthly. Patient will return to clinic in 4 weeks. Will follow-up at that time. documented in this encounter Plan of Treatment Upcoming Encounters Date Type Department Care Team ([facility] st Contact Info) Description 02/02/2025 11:00 AM EDT Appointment [facility] A Interventional Radiology [address] [place] [address] Hussain Calles RN 02/10/2025 8:30 AM EDT Clinical Support [facility] Hematology/BMT and Cellular Therapy Program [address] [phone] 02/10/2025 9:00 AM EDT Office Visit [facility] Hematology/BMT and Cellular Therapy Program [address] [phone] Elaina Boss PA 800 [facility] [address] [place] [phone] 02/10/2025 10:30 AM EDT Appointment [facility] Infusion Clinic [address] [place] [address] 02/11/2025 2:00 PM EDT Appointment [facility] Infusion [facility] 1 [address] [place] [address] 02/12/2025 2:00 PM EDT Appointment [facility] [address] [place] [address] 02/13/2025 2:00 PM EDT Appointment [facility] 1 [address] [place] [address] 02/14/2025 2:00 PM EDT Appointment [facility]fusion [facility] [address] [place] [address] 03/10/2025 8:30 AM EDT Clinical Support [facility] CC Hematology/BMT and Cellular Therapy Program 750 [facility], [address] [place] [phone] 03/10/2025 9:00 AM EDT Office Visit [facility] CC Hematology/BMT and Cellular Therapy Program 750 [facility], [address] [place] [phone] Isaura Wynn, CODING SPECIALIST 800 [facility] [address] [place] [phone] 03/10/2025 11:20 AM EDT Office Visit Pav CC Head, Neck & Respiratory 800 [facility], [address] [place] [phone] Elsa Razo, CODING SPECIALIST [address] [place] [phone] documented as of this encounter Procedures Procedure Name Priority Date/Time Associated Diagnosis Comments GROUP A STREPTOCOCCUS BY PCR Routine 12/16/2024 9:40 AM EDT Myelodysplasia (myelodysplastic syndrome) ([facility]/HCC) STREPTOCOCCUS CULTURE Routine 12/16/2024 9:40 AM EDT [...] by Flow Cytometry (01/06/2025 9:48 AM EDT) Pathologist [facility] Clinical Indication AML 01/07/2025 10:18 AM EDT [facility] Flow Cytometry Interpretation APPROXIMATELY 16% MYELOID BLASTS; EXPRESSING CD34, CD117, CD13, CD33, HLA-DR, PARTIAL CD7, PARTIAL CD123, VARIABLE CD38, AND MODERATE CD45, SEE COMMENT, BONE MARROW ASPIRATE. 01/07/2025 10:18 AM EDT [facility] Comments Specimen viability is 79%. Flow [...] disease. Final interpretation requires morphologic correlation ([id number]). The following antibodies were used in this analysis: CD45, CD2, CD3, CD4, CD5, CD7, CD8, CD10, CD13, CD14, CD15, CD16, CD19, CD20, CD33, CD34, CD38, CD56, CD117, HLA-DR, kappa surface light chains, lambda surface light chains, CD123 01/07/2025 10:18 AM EDT [facility] Disclaimer This test was developed and its performance characteristics determined by the Immuno-Molecular Pathology Laboratory at the [facility]. It has not been cleared [...] testing. 01/07/2025 10:18 AM EDT [facility] Pathologist Signature Reviewed by: Tessie Peralta MD 01/07/2025 10:18 AM EDT [facility] MRD Indicated Test Not Indicated 10:18 AM EDT [facility] Bone Marrow Specimen from bone marrow obtained by aspiration / Unknown Non-blood Collection / Unknown 01/06/2025 9:48 AM EDT 01/06/2025 11:20 AM EDT Virgen Vargas MD LAB FLOW CYTOMETRY ORDERABLES Final Result [facility] [address] [place] [address] * Bone marrow exam (01/06/2025 9:48 AM EDT) Case Report Bone Marrow Case: [id number] Authorizing Provider: Virgen Vargas MD Collected: 01/06/2025 0948 Ordering Location: [facility] Hematology/BMT and Received: 01/06/2025 1108 Cellular Therapy Program Pathologist: Tessie Peralta MD Specimens: A) - Bone Marrow Aspirate, left B) - Bone Marrow Biopsy, left C) - Peripheral Blood for Bone Marrow 6:13 PM EDT [facility] Final Diagnosis BONE MARROW, LEFT POSTERIOR ILIAC CREST, (PERIPHERAL SMEAR, ASPIRATE SMEARS, AND CORE BIOPSY): - MILDLY HYPOCELLULAR BONE MARROW WITH ERYTHROID HYPERPLASIA, MARKEDLY REDUCED GRANULOPOIESIS, PERSISTENT DYSPOIESIS AND 10% BLASTS, SEE COMMENT. 6:13 PM EDT [facility] at 1813 EDT Comment The marrow cellularity is composed of erythroid cells with markedly reduced granulopoiesis and decreased megakaryocytes. Persistent trilineage dyspoiesis is noted. The blast percentages are higher by flow cytometry analysis as the majority of marrow cellularity consists of erythroid precursors that are removed by flow cytometry. 6:13 PM EDT [facility] Clinical Information AML 12/22 6:13 PM EDT [facility] CBC and Differential PERIPHERAL BLOOD: 01/06/2025: [...] circulating blasts are identified. 6:13 PM EDT [facility] Bone Marrow Differential BONE MARROW DIFFERENTIAL: 400 cells Normal Patient Neutrophils 15-50 0 Metamyelocytes 4-19 1 Myelocytes 1-18 2 Promyelocytes 1-8 1 Blasts 0-2 10 Monocytes 0-5 0 Erythroid 16-38 73 Lymphocytes 3-24 4 Eosinophils 0-6 1 Basophils 0-2 0 Plasma cells 0-4 8 Other 5 6:13 PM EDT [facility] Bone Marrow Aspirate and Biopsy Core [...] unremarkable. 5 6:13 PM EDT [facility] Special and Immunohistochemical Stains Immunohistochemica l stains [...] developed by and are performed at the [facility], [address] [place] [address]. All tests reported here, except those addressing [...] on decalcified specimens. 5 6:13 PM EDT [facility] Flow Cytometry Interpretation APPROXIMATELY 16% MYELOID BLASTS; EXPRESSING CD34, CD117, CD13, CD33, HLA-DR, PARTIAL CD7, PARTIAL CD123, VARIABLE CD38, AND MODERATE CD45, SEE COMMENT, BONE MARROW ASPIRATE ([id number]) 6:13 PM EDT [facility] Gross Description B. LEFT A single specimen is received in formalin labeled bone marrow biopsy left posterior iliac crest and consists of 2 piece(s) of tissue measuring 0.8/0.2 cm in length 0.2 cm in diameter. The specimen is submitted in to Histology for decalcification and routine processing. Cold Time: <1m 6:13 PM EDT [facility] Note: A resident was involved in the service. I attest I examined the relevant preparations for the specimens and confirmed the diagnosis or interpretation. 6:13 PM EDT [facility] Bone Marrow Peripheral blood specimen [...] MD LAB PATHOLOGY ORDERABLES Terri lara Result [facility] [address] [place] [address] * Streptococcus Culture (12/16/2024 9:40 AM EDT) Culture Reading Strep A No Streptococcus pyogenes or Streptococcus dysgalactiae isolated 12/17/2024 2:28 PM EDT [facility] Swab Pharyngeal structure / Unknown Non-blood Collection / Unknown 12/16/2024 9:40 AM EDT 12/16/2024 10:10 AM EDT Isaura Wynn APRN LAB MICROBIOLOGY - GENERAL ORD ERABLES Final Result Performing Organization Address City/[facility]/ZIP Co de Phone Number [facility] [address] [place] [address] * Group A Streptococcus by PCR (12/16/2024 9:40 AM EDT) Pathologist [facility] Group A Streptococcus PCR Result Not Detected Not Detected 12/16/2024 11:53 AM EDT [facility] Swab Pharyngeal structure / Unknown Non-blood Collection / Unknown 12/16/2024 9:40 AM EDT 12/16/2024 10:10 AM EDT us Isaura Wynn APRN LAB MICROBIOLOGY - GENERAL ORD ERABLES Final Result Performing Organization Address [facility] [place] [address] * (ABNORMAL) Uric acid (12/16/2024 8:10 AM EDT) Pathologist [facility] Uric Acid, Plasma 3.0(L) 3.7 - 8.0 mg/dL 12/16/2024 8:58 AM EDT [facility] Blood Venous blood specimen / Unknown Venipuncture / Unknown 12/16/2024 8:10 AM EDT 12/16/2024 8:27 AM EDT us Isaura Wynn APRN LAB BLOOD ORDERABLES Final Res ult Performing Organization Address City/[facility]/ZIP Co de Phone Number [facility] [address] [place] [address] * Phosphorus, Plasma (12/16/2024 8:10 AM EDT) Phosphorus, Plasma 3.4 2.5 - 4.5 mg/dL 12/16/2024 8:58 AM EDT [facility] Blood Venous blood specimen / Unknown Venipuncture / Unknown 12/16/2024 8:10 AM EDT 12/16/2024 8:27 AM EDT us Isaura Wynn CODING SPECIALIST LAB BLOOD ORDERABLES Final Res ult Performing Organization Address [facility] Co de Phone Number [facility] [address] [place] [address] * Magnesium, Plasma (12/16/2024 8:10 AM EDT) Magnesium, Plasma 2.4 1.9 - 2.4 mg/dL 12/16/2024 8:58 AM EDT [facility] Blood Venous blood specimen / Unknown Venipuncture / Unknown 12/16/2024 8:10 AM EDT 12/16/2024 8:27 AM EDT us Isaura Wynn CODING SPECIALIST LAB BLOOD ORDERABLES Final Res ult Performing Organization Address [facility] Co de Phone Number [facility] [address] [place] [address] * Lactate Dehydrogenase, Plasma (12/16/2024 8:10 AM EDT) LDH, Plasma 230 116 - 250 U/L 12/16/2024 8:58 AM EDT [facility] Blood Venous blood specimen / Unknown Venipuncture / Unknown 12/16/2024 8:10 AM EDT 12/16/2024 8:27 AM EDT us Isaura Wynn CODING SPECIALIST LAB BLOOD ORDERABLES Final Res ult Performing Organization Address [facility] Co de Phone Number [facility] [address] [place] [address] * (ABNORMAL) Comprehensive Metabolic Panel, Plasma (12/16/2024 8:10 AM EDT) Glucose, Plasma 110(H) 74 - 99 mg/dL 12/16/2024 8:58 AM EDT [facility] BUN, Plasma 10 8 - 23 mg/dL 12/16/2024 8:58 AM EDT [facility] Creatinine, Plasma 0.79 0.70 - 1.20 mg/dL 12/16/2024 8:58 AM EDT [facility] BUN/Creatinine Ratio 13 12/16/2024 8:58 AM EDT [facility] Sodium, Plasma 140 136 - 145 mmol/L 12/16/2024 8:58 AM EDT [facility] Potassium, Plasma 4.2 3.6 - 4.9 mmol/L 12/16/2024 8:58 AM EDT [facility] Chloride, Plasma 109(H) 97 - 107 mmol/L 12/16/2024 8:58 AM EDT [facility] CO2, Plasma 21(L) 22 - 29 mmol/L 12/16/2024 8:58 AM EDT [facility] Anion Gap 10 6 - 16 mmol/L 12/16/2024 8:58 AM EDT [facility] Total Calcium, Plasma 8.9 8.9 - 10.2 mg/dL 12/16/2024 8:58 AM EDT [facility] Total Protein 6.8 6.3 - 7.9 g/dL 12/16/2024 8:58 AM EDT [facility] Albumin, Plasma 4.0 3.5 - 5.2 g/dL 12/16/2024 8:58 AM EDT [facility] AST, Plasma 23 10 - 50 U/L 12/16/2024 8:58 AM EDT [facility] ALT, Plasma 25 10 - 50 U/L 12/16/2024 8:58 AM EDT [facility] Alkaline Phosphatase, Plasma 95 40 - 115 U/L 12/16/2024 8:58 AM EDT [facility] Total Bilirubin, Plasma 0.6 0.2 - 1.1 mg/dL 12/16/2024 8:58 AM EDT [facility] eGFRcr 96.2 mL/min/1.7 3m*2 12/16/2024 8:58 AM EDT [facility] Comment:Reported eGFRcr in m L/min/1.73m2 is based the CKD-EPI 2020 equation that does not use a race coefficient. Blood Venous blood specimen / Unknown Venipuncture / Unknown 12/16/2024 8:10 AM EDT 12/16/2024 8:27 AM EDT us Isaura Wynn APRN LAB BLOOD ORDERABLES Final Res ult [facility] [address] [place] [address] * (ABNORMAL) CBC and Differential (12/16/2024 8:10 AM EDT) WBC Count 0.59(LL) 3.70 - 10.30 10*3/uL LAB HEMATOLOGY METHOD 12/16/2024 10:15 AM EDT [facility] RBC Count 2.48(L) 4.60 - 6.10 10*6/uL LAB HEMATOLOGY METHOD 12/16/2024 10:15 AM EDT [facility] HGB 8.0(L) 13.7 - 17.5 g/dL LAB HEMATOLOGY METHOD 12/16/2024 10:15 AM EDT [facility] HCT 22.1(L) 40.0 - 51.0 % LAB HEMATOLOGY METHOD 12/16/2024 10:15 AM EDT [facility] Platelet Count <5(LL) 155 - 369 10*3/uL LAB HEMATOLOGY METHOD 12/16/2024 10:15 AM EDT [facility] MCV 89 79 - 98 fL LAB HEMATOLOGY METHOD 12/16/2024 10:15 AM EDT [facility] MCH 32.3(H) 26.0 - 32.0 pg LAB HEMATOLOGY METHOD 12/16/2024 10:15 AM EDT [facility] MCHC 36.2(H) 30.7 - 35.5 g/dL LAB HEMATOLOGY METHOD 12/16/2024 10:15 AM EDT [facility] RDW 16.3(H) 11.5 - 14.5 % LAB HEMATOLOGY METHOD 12/16/2024 10:15 AM EDT [facility] MPV LAB HEMATOLOGY METHOD 12/16/2024 10:15 AM EDT [facility] Comment:Not Measured nRBC 0.0 <=0.0 per 100 WBCs LAB HEMATOLOGY METHOD 12/16/2024 10:15 AM EDT [facility] Differential Type Automated LAB HEMATOLOGY METHOD 12/16/2024 10:15 AM EDT [facility] Neutrophils % 5 % LAB HEMATOLOGY METHOD 12/16/2024 10:15 AM EDT [facility] Lymphocytes % 90 % LAB HEMATOLOGY METHOD 12/16/2024 10:15 AM EDT [facility] Monocytes % 5 % LAB HEMATOLOGY METHOD 12/16/2024 10:15 AM EDT [facility] Eosinophils % 0 % LAB HEMATOLOGY METHOD 12/16/2024 10:15 AM EDT [facility] Basophils % 0 % LAB HEMATOLOGY METHOD 12/16/2024 10:15 AM EDT [facility] Immature Granulocytes % 0 % LAB HEMATOLOGY METHOD 12/16/2024 10:15 AM EDT [facility] Neutrophils Absolute 0.03(LL) 1.60 - 6.10 10*3/uL LAB HEMATOLOGY METHOD 12/16/2024 10:15 AM EDT [facility] Lymphocytes Absolute 0.53(L) 1.20 - 3.90 10*3/uL LAB HEMATOLOGY METHOD 12/16/2024 10:15 AM EDT [facility] Monocytes Absolute 0.03(L) 0.30 - 0.90 10*3/uL LAB HEMATOLOGY METHOD 12/16/2024 10:15 AM EDT [facility] Eosinophils Absolute 0.00 0.00 - 0.50 10*3/uL LAB HEMATOLOGY METHOD 12/16/2024 10:15 AM EDT [facility] Basophils Absolute 0.00 0.00 - 0.10 10*3/uL LAB HEMATOLOGY METHOD 12/16/2024 10:15 AM EDT [facility] Immature Granulocytes Absolute 0.00 0.00 - 0.06 10*3/uL LAB HEMATOLOGY METHOD 12/16/2024 10:15 AM EDT [facility] Blood Venous blood specimen / Unknown Venipuncture / Unknown 12/16/2024 8:10 AM EDT 12/16/2024 8:28 AM EDT Narrative [facility] - 12/16/2024 10:15 AM EDT Therapeutic decision making should be based on absolute values, rather than percentages. us Isarua Wynn APRN LAB BLOOD ORDERABLES Final Res ult [facility] [address] [place] [address] documented in this encounter Visit Diagnoses Diagnosis [...] documented as of this encounter Care Teams Resident Manager Relationship Specialty Start Date End Date Zhao Harris MD [facility] [place] [address] PCP - General 12/03/20 documented as of this encounter
--- OUTSIDE RECORDS SUMMARY | 2024-12-16 10:00 | XMS_ITS | Encounter Summary ---
Author Organization [facility] Address [address] [place] [address] Care Team Providers Care Handle Maker Name Role Phone Zhao Harris MD Primary Care Provider + [phone] Reason for Visit * Episode Based Medications (Routine) - Closed Specialty Diagnoses / Procedures Referred By Justice mcgee Referred To Contact Diagnoses Myelodysplasia (myelodysplastic syndrome) (CMS/HCC) Procedures Azacitidine Daily x 7 / Venetoclax Every 28 Days Virgen Vargas MD 800 [facility] [address] [address] Phone: tel: fax: Virgen Vargas MD [address] [address] Phone: tel: fax: Referral ID Status Reason Start Date Expiration Date Visits Re quested Visits Authorized [id number] Closed 10/20/2024 04/21/2026 1 91 Encounter Details Date Type Department Care Team (Latest Contact Info) Description 12/16/2024 10:00 AM EDT - 12/16/2024 10:59 AM EDT Hospital Encounter [facility] H Infusion [address] [place] [phone] Myelodysplasia (myelodysplastic syndrome) (CMS/HCC) (Primary Dx); Thrombocytopenia [...] drink first t manav in the morning (EYE-CARDIOTHORACIC ANESTHESIA TECHNICIAN) to steady your nerves or to [...] 5 MG tabletIndications :Coronary artery disease involving [place] heart with angina pectoris, unspecified vessel or [...] by mouth daily. 30 tablet 3 10/14/2024 lidocaine-priloca ine (Emla) 2.5-2.5 % cream Apply [...] for mouth sores 237 mL 2 12/16/2024 posaconazole (Noxafil) [address] tabletIndications :Myelodysplasia [...] MG SL tabletIndications :Coronary artery disease involving [place] heart with angina pectoris, unspecified vessel or [...] AM EDT Appointment PAV A Interventional Radiology [place] [address] Hussain Calles, RN 02/10/2025 8:30 AM EDT Clinical Support [facility] CC Hematology/BMT and Cellular Therapy Program [address] [address] 02/10/2025 9:00 AM EDT Office Visit [facility] CC Hematology/BMT and Cellular Therapy Program [address] [address] Elaina Boss, PA 800 [facility] [address] [phone] 02/10/2025 10:30 AM EDT Appointment [facility] Infusion Clinic 1 [address] [place] [address] 02/11/2025 2:00 PM EDT Appointment [facility] Infusion [facility] 1 [address] [place] [address] 02/12/2025 2:00 PM EDT Appointment [facility]fusion [facility] 1 [address] [place] [address] 02/13/2025 2:00 PM EDT Appointment [facility]fusion [facility] 1 [address] [place] [address] 02/14/2025 2:00 PM EDT Appointment [facility]fusion [facility] 1 [address] [place] [address] 03/10/2025 8:30 AM EDT Clinical Support [facility] Hematology/BMT and Cellular Therapy Program [address] [address] 03/10/2025 9:00 AM EDT Office Visit [facility] Hematology/BMT and Cellular Therapy Program [address] [address] Isaura Wynn, ESTRELLA 800 [facility] [address] [address] 03/10/2025 11:20 AM EDT Office Visit Pav CC Head, Neck & Respiratory [address] [place] [address] Elsa Razo, MUD CAR WORKER [address] [place] [address] documented as of this encounter [...] LAB HEMATOLOGY METHOD 12/16/2024 1:00 PM EDT [facility] Blood Venous blood specimen / Unknown Venipuncture / Unknown 12/16/2024 12:23 PM EDT 12/16/2024 12:51 PM EDT us Virgen Vargas MD LAB BLOOD ORDERABLES Final Re sult [facility] [address] [place] [address] * Transfuse platelets (12/16/2024 12:21 PM EDT) Kayli Ospina ARAM BLOOD TRANSFUSION ORDERA BLES Final Result * Transfuse platelets: 1 Units (12/16/2024 12:21 PM EDT) Kayli CHIU BLOOD TRANSFUSION ORDERA [...] ORDERABLE S Final Result BLOOD BANK [address] [place] [address], * Exception to Standard Practice, Pathologist Interpretation [...] ORDERAB LES Final Result BLOOD BANK [address] [place] [address], * Prepare Leukocyte Reduced Platelets: 1 Units (12/16/2024 10:54 AM EDT) Product Code T0754G06 CH BLOO D BANK Dispense Status Transfused BLOOD BANK Blood Expiration Date BLOOD BANK Unit Number [id number] CH B LOOD BANK Product Blood Type 8400 BLOOD BANK Blood Type AB+ BLOOD BANK Blood Venous blood specimen / Unknown Kayli CHIU BLOOD BANK PRODUCT ORDER VIKAS Final Result Performing Organization Address City/[facility]/ZIP Co de Phone Number BLOOD BANK [address] [place] [address], * Prepare Leukocyte Reduced RBC: 1 Units, Irradiated (12/16/2024 10:54 AM EDT) Product Code V5992L52 CH BLOO D BANK Dispense Status Transfused BLOOD BANK Blood Expiration Date [id number] BLOOD BANK Unit Number [id number] CH B LOOD BANK Product Blood Type 9500 BLOOD BANK Blood Type O- CH BLOOD BANK Crossmatch Compatible BLOOD BANK Other Kayli CHIU BLOOD BANK PRODUCT ORDER VIKAS Final Result BLOOD BANK [address] [place] [address], documented in this encounter Visit Diagnoses Diagnosis [...] documented as of this encounter Care Teams Handle Maker Relationship Specialty Start Date End Date Zhao Harris MD [address] [place] [address] PCP - General 12/03/20 documented as of this encounter
--- OUTSIDE RECORDS SUMMARY | 2024-12-16 11:00 | XMS_ITS | Encounter Summary ---
Author Organization Healthcare Address [address] [place] [address] Care Team Providers Care Sloop Captain Name Role Phone Zhao Harris MD Primary Care Provider [phone] Encounter Details Date Type Department Care Team (Latest Contact Info) Description 12/16/2024 11:00 AM EDT - 12/16/2024 11:59 PM EDT Hospital Encounter [facility] H Infusion [address] [place] [address] Myelodysplasia (myelodysplastic syndrome) (CMS/HCC) (Primary Dx) Discharge [...] drink first t manav in the morning (EYE-RAILROAD BRAKE OPERATOR) to steady your nerves or to [...] 5 MG tabletIndications :Coronary artery disease involving [place] heart with angina pectoris, unspecified vessel or lesion type (CMS/HCC),Hyperte nsion, unspecified type Take 1 tablet (5 mg) by mouth daily. 90 tablet 3 09/11/2024 HYDROcodone-aceta minophen ([place]) 5-325 MG tablet Take 1 tablet by [...] MG SL tabletIndications :Coronary artery disease involving [place] heart with angina pectoris, unspecified vessel or [...] Appointment PAV A Interventional Radiology [address] [place] [address] Hussain Calles RN 02/10/2025 8:30 AM EDT Clinical Support [facility] Hematology/BMT and Cellular Therapy Program 750 [facility] [place] [address] 02/10/2025 9:00 AM EDT Office Visit [facility] Hematology/BMT and Cellular Therapy Program [address] [place] [address] Elaina Boss, PA [address] [address] 02/10/2025 10:30 AM EDT Appointment [facility] 1 7[address] [place] [phone] 02/11/2025 2:00 PM EDT Appointment [facility] 1 [address] [place] [address] 02/12/2025 2:00 PM EDT Appointment [facility] 1 [address] [place] [address] 02/13/2025 2:00 PM EDT Appointment [facility] 1 [address] [place] [address] 02/14/2025 2:00 PM EDT Appointment [facility] 1 [address] [place] [address] 03/10/2025 8:30 AM EDT Clinical Support [facility] Hematology/BMT and Cellular Therapy Program [address] [phone] 03/10/2025 9:00 AM EDT Office Visit [facility] Hematology/BMT and Cellular Therapy Program [address] [phone] Isaura Wynn, ACCOUNTING/FINANCE TUTOR [address] [phone] 03/10/2025 11:20 AM EDT Office Visit [facility] Head[facility] Neck [facility] Respiratory 800 [facility], 2nd [place] [address] Elsa Razo, ACCOUNTING/FINANCE TUTOR 800 [place] [address] documented as of this encounter Visit Diagnoses [...] documented as of this encounter Care Teams Sloop Captain Relationship Specialty Start Date End Date Zhao Harris MD [address] [place] [address] PCP - General 12/03/20 documented as of this encounter
--- OUTSIDE RECORDS SUMMARY | 2024-12-17 08:23 | XMS_ITS | Encounter Summary ---
Author Organization [facility] Address [address] [place] [address] Care Team Providers Care Garment Manufacturer Name Role Phone Zhao Harris MD Primary Care Provider + [phone] Reason for Visit * Episode Based Medications (Routine) - Closed Specialty Diagnoses / Procedures Referred By Justice mcgee Referred To Contact Diagnoses Myelodysplasia (myelodysplastic syndrome) (CMS/HCC) Procedures Azacitidine Daily x 7 / Venetoclax Every 28 Days Vigren Vargas MD 800 [facility] Cancer [address] [address] Phone: tel: fax: Virgen Vargas MD [address] [address] Phone: tel: fax: Referral ID Status Reason Start Date Expiration Date Visits Re quested Visits Authorized [id number] Closed 10/20/2024 04/21/2026 1 91 Encounter Details Date Type Department Care Team (Latest Contact Info) Description 12/17/2024 8:23 AM EDT - 12/17/2024 11:59 PM EDT Hospital Encounter [facility] H Infusion 800 [place] [phone] Myelodysplasia (myelodysplastic syndrome) (CMS/HCC) (Primary Dx); Thrombocytopenia [...] drink first t manav in the morning (EYE-DIE MACHINE OPERATOR) to steady your nerves or [...] 5 MG tabletIndications :Coronary artery disease involving [place] heart with angina pectoris, unspecified vessel or lesion type (CMS/HCC),Hyperte nsion, unspecified type Take 1 tablet (5 mg) by mouth daily. 90 tablet 3 09/11/2024 HYDROcodone-aceta minophen ([place]) 5-325 MG tablet Take 1 tablet by [...] MG SL tabletIndications :Coronary artery disease involving [place] heart with angina pectoris, unspecified vessel or [...] Description 02/02/2025 11:00 AM EDT Appointment [facility] Interventional Radiology [address] [place] [address] Hussain Calles RN 02/10/2025 8:30 AM EDT Clinical Support [facility] Hematology/BMT and Cellular Therapy Program [address] [address] 02/10/2025 9:00 AM EDT Office Visit [facility] Hematology[facility]BMT [facility] Cellular Therapy Program [address] [address] Elaina Boss, ARAM 800 [facility] [address] [place] [address] 02/10/2025 10:30 AM EDT Appointment [facility] 1 [address] [place] [address] 02/11/2025 2:00 PM EDT Appointment [facility] 1 [address] [place] [address] 02/12/2025 2:00 PM EDT Appointment [facility] 1 [address] [place] [address] 02/13/2025 2:00 PM EDT Appointment [facility] 1 [address] [place] [address] 02/14/2025 2:00 PM EDT Appointment [facility] 1 [address] [place] [address] 03/10/2025 8:30 AM EDT Clinical Support [facility]ematology[facility]BMT [facility] Cellular Therapy [facility] [address] [address] 03/10/2025 9:00 AM EDT Office Visit [facility] H[facility]ology[facility]BMT [facility] Cellular Therapy Program [address] [address] Isaura Wynn, WOOD GRAINER 800 [facility] [address] [place] [phone] 03/10/2025 11:20 AM EDT Office Visit Pav [facility] Head, Neck & Respiratory 800 [facility], 2nd [place] [address] Elsa Razo, WOOD GRAINER 800 [place] [address] documented as of this encounter Results * [...] Sun12/17/24 at 0915, RoutineIndications:Myelodyspla haim (myelodysplastic syndrome) (CMS/HCC) Given 12/17/2024 8:54 AM EDT 16 mg [...] documented as of this encounter Care Teams Garment Manufacturer Relationship Specialty Start Date End Date Zhao Harris MD [address] [place] [address] [place] [address] PCP - General 12/03/20 documented as of this encounter
--- OUTSIDE RECORDS SUMMARY | 2024-12-18 08:30 | XMS_ITS | Encounter Summary ---
Author Organization [facility] Address [address] [place] [address] Care Team Providers Care Social Contact Worker Name Role Phone Zhao Harris MD Primary Care Provider + [phone] Reason for Visit * Episode Based Medications (Routine) - Closed Specialty Diagnoses / Procedures Referred By Justice mcgee Referred To Contact Diagnoses Myelodysplasia (myelodysplastic syndrome) (CMS/HCC) Procedures Azacitidine Daily x 7 / Venetoclax Every 28 Days Virgen Vargas MD [address] [address] Phone: tel: fax: Virgen Vargas MD [address] [address] Phone: tel: fax: Referral ID Status Reason Start Date Expiration Date Visits Re quested Visits Authorized [id number] Closed 10/20/2024 04/21/2026 1 91 Encounter Details Date Type Department Care Team (Latest Contact Info) Description 12/18/2024 8:30 AM EDT - 12/18/2024 9:45 AM EDT Hospital Encounter [facility] H Infusion [address] [place] [phone] Myelodysplasia (myelodysplastic syndrome) (CMS/HCC) (Primary Dx); Thrombocytopenia [...] drink first t manav in the morning (EYE-PEDIATRIC REGISTERED NURSE) to steady your nerves or to get [...] 5 MG tabletIndications :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, unspecified vessel or lesion type (CMS/HCC),Hyperte nsion, unspecified type Take 1 tablet (5 mg) by mouth daily. 90 tablet 3 09/11/2024 HYDROcodone-aceta minophen ([place]) 5-325 MG tablet Take 1 tablet by [...] MG SL tabletIndications :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, unspecified vessel or [...] Appointment P[facility] A Interventional Radiology [address] [place] [address] Hussain Calles RN 02/10/2025 8:30 AM EDT Clinical Support [facility] Hematology/BMT and Cellular Therapy Program [address] [place] [address] 02/10/2025 9:00 AM EDT Office Visit PAV Hematology/BMT and Cellular Therapy Program [address] [phone] Elaina Boss, [place] 800 [facility] [address] [place] [phone] 02/10/2025 10:30 AM EDT Appointment [facility] 1 [address] [place] [address] 02/11/2025 2:00 PM EDT Appointment [facility] 1 [address] [place] [address] 02/12/2025 2:00 PM EDT Appointment [facility] 1 [address] [place] [address] 02/13/2025 2:00 PM EDT Appointment [facility] 1 [address] [place] [address] 02/14/2025 2:00 PM EDT Appointment [facility] 1 [address] [place] [address] 03/10/2025 8:30 AM EDT Clinical Support [facility] Hematology/BMT and Cellular Therapy Program [address] [phone] 03/10/2025 9:00 AM EDT Office Visit PAV Hematology/BMT and Cellular Therapy Program [address] [phone] Isaura Wynn, ESTRELLA 800 [facility] [address] [phone] 03/10/2025 11:20 AM EDT Office Visit Pav Head, Neck & Respiratory 800 [facility], [address]nd [place] [phone] Dung Elsa B, SHUFFLE BOARD OPERATOR [address] [place] [address] documented as of this encounter [...] LAB HEMATOLOGY METHOD 12/18/2024 11:06 AM EDT [facility] Blood Blood sample taken from central line / Unknown Venipuncture / Unknown 12/18/2024 10:55 AM EDT 12/18/2024 11:03 AM EDT us Virgen Vargas MD LAB BLOOD ORDERABLES Final Re sult [facility] [address] [place] [address] * Transfuse platelets (12/18/2024 10:52 AM EDT) Kayli Daly Bhavesh CHIU BLOOD TRANSFUSION ORDERA BLES Final Result * Transfuse platelets: 1 Units (12/18/2024 10:52 AM EDT) Kayli Daly Bhavesh CHIU BLOOD TRANSFUSION ORDERA BLES Final Result * Prepare Leukocyte Reduced Platelets: 1 Units (12/18/2024 9:45 AM EDT) Product Code [id number] BLOO D BANK Dispense Status Transfused BLOOD BANK Blood Expiration Date [id number] BLOOD BANK Unit Number [id number] B LOOD BANK Product Blood Type 6200 BLOOD BANK Blood Type A+ BLOOD BANK Blood Venous blood specimen / Unknown Kayli Addy Bhavesh CHIU BLOOD BANK PRODUCT ORDER VIKAS Final Result Performing Organization Address City/State/[facility] Co de Phone Number BLOOD BANK [address] [place] [address], * (ABNORMAL) Comprehensive Metabolic Panel, Plasma (12/18/2024 9:14 AM EDT) Glucose, Plasma 108(H) 74 - 99 mg/dL 12/18/2024 9:51 AM EDT [facility] BUN, Plasma 10 8 - 23 mg/dL 12/18/2024 9:51 AM EDT [facility] Creatinine, Plasma 0.80 0.70 - 1.20 mg/dL 12/18/2024 9:51 AM EDT [facility] BUN/Creatinine Ratio 13 12/18/2024 9:51 AM EDT [facility] Sodium, Plasma 139 136 - 145 mmol/L 12/18/2024 9:51 AM EDT [facility] Potassium, Plasma 4.4 3.6 - 4.9 mmol/L 12/18/2024 9:51 AM EDT [facility] Chloride, Plasma 108(H) 97 - 107 mmol/L 12/18/2024 9:51 AM EDT [facility] CO2, Plasma 22 22 - 29 mmol/L 12/18/2024 9:51 AM EDT [facility] Anion Gap 9 6 - 16 mmol/L 12/18/2024 9:51 AM EDT [facility] Total Calcium, Plasma 8.8(L) 8.9 - 10.2 mg/dL 12/18/2024 9:51 AM EDT [facility] Total Protein 6.8 6.3 - 7.9 g/dL 12/18/2024 9:51 AM EDT [facility] Albumin, Plasma 3.9 3.5 - 5.2 g/dL 12/18/2024 9:51 AM EDT [facility] AST, Plasma 16 10 - 50 U/L 12/18/2024 9:51 AM EDT [facility] ALT, Plasma 16 10 - 50 U/L 12/18/2024 9:51 AM EDT [facility] Alkaline Phosphatase, Plasma 83 40 - 115 U/L 12/18/2024 9:51 AM EDT [facility] Total Bilirubin, Plasma 0.6 0.2 - 1.1 mg/dL 12/18/2024 9:51 AM EDT [facility] eGFRcr 95.8 mL/min/1.7 3m*2 12/18/2024 9:51 AM EDT [facility] Comment:Reported eGFRcr in m L/min/1.73m2 is based the CKD-EPI 2020 equation that does not use a race coefficient. Blood Blood sample taken from central line / Unknown Venipuncture / Unknown 12/18/2024 9:14 AM EDT 12/18/2024 9:20 AM EDT us Virgen Vargas MD LAB BLOOD ORDERABLES Final Re sult [facility] [address] [place] [address] * (ABNORMAL) CBC and differential (12/18/2024 9:14 AM EDT) WBC Count 0.51(LL) 3.70 - 10.30 10*3/uL LAB HEMATOLOGY METHOD 12/18/2024 10:49 AM EDT [facility] RBC Count 2.50(L) 4.60 - 6.10 10*6/uL LAB HEMATOLOGY METHOD 12/18/2024 10:49 AM EDT [facility] HGB 8.1(L) 13.7 - 17.5 g/dL LAB HEMATOLOGY METHOD 12/18/2024 10:49 AM EDT [facility] HCT 21.9(L) 40.0 - 51.0 % LAB HEMATOLOGY METHOD 12/18/2024 10:49 AM EDT [facility] Platelet Count 6(LL) 155 - 369 10*3/uL LAB HEMATOLOGY METHOD 12/18/2024 10:49 AM EDT [facility] MCV 88 79 - 98 fL LAB HEMATOLOGY METHOD 12/18/2024 10:49 AM EDT [facility] MCH 32.4(H) 26.0 - 32.0 pg LAB HEMATOLOGY METHOD 12/18/2024 10:49 AM EDT [facility] MCHC 37.0(H) 30.7 - 35.5 g/dL LAB HEMATOLOGY METHOD 12/18/2024 10:49 AM EDT [facility] RDW 16.7(H) 11.5 - 14.5 % LAB HEMATOLOGY METHOD 12/18/2024 10:49 AM EDT [facility] MPV LAB HEMATOLOGY METHOD 12/18/2024 10:49 AM EDT [facility] Comment:Not Measured nRBC 0.0 <=0.0 per 100 WBCs LAB HEMATOLOGY METHOD 12/18/2024 10:49 AM EDT [facility] Differential Type Automated LAB HEMATOLOGY METHOD 12/18/2024 10:49 AM EDT [facility] Neutrophils % 6 % LAB HEMATOLOGY METHOD 12/18/2024 10:49 AM EDT [facility] Lymphocytes % 90 % LAB HEMATOLOGY METHOD 12/18/2024 10:49 AM EDT [facility] Monocytes % 4 % LAB HEMATOLOGY METHOD 12/18/2024 10:49 AM EDT [facility] Eosinophils % 0 % LAB HEMATOLOGY METHOD 12/18/2024 10:49 AM EDT [facility] Basophils % 0 % LAB HEMATOLOGY METHOD 12/18/2024 10:49 AM EDT [facility] Immature Granulocytes % 0 % LAB HEMATOLOGY METHOD 12/18/2024 10:49 AM EDT [facility] Neutrophils Absolute 0.03(LL) 1.60 - 6.10 10*3/uL LAB HEMATOLOGY METHOD 12/18/2024 10:49 AM EDT [facility] Lymphocytes Absolute 0.46(L) 1.20 - 3.90 10*3/uL LAB HEMATOLOGY METHOD 12/18/2024 10:49 AM EDT [facility] Monocytes Absolute 0.02(L) 0.30 - 0.90 10*3/uL LAB HEMATOLOGY METHOD 12/18/2024 10:49 AM EDT [facility] Eosinophils Absolute 0.00 0.00 - 0.50 10*3/uL LAB HEMATOLOGY METHOD 12/18/2024 10:49 AM EDT [facility] Basophils Absolute 0.00 0.00 - 0.10 10*3/uL LAB HEMATOLOGY METHOD 12/18/2024 10:49 AM EDT [facility] Immature Granulocytes Absolute 0.00 0.00 - 0.06 10*3/uL LAB HEMATOLOGY METHOD 12/18/2024 10:49 AM EDT [facility] Blood Blood sample taken from central line / Unknown Venipuncture / Unknown 12/18/2024 9:14 AM EDT 12/18/2024 9:20 AM EDT Narrative [facility] - 12/18/2024 10:49 AM EDT Therapeutic decision making should be based on absolute values, rather than percentages. us Christina Ramos MD LAB BLOOD ORDERABLES Final Resul t [facility] [address] [place] [address] * Exception to Standard Practice, Pathologist Interpretation [...] Co de Phone Number BLOOD BANK [address] documented in this encounter Visit [...] documented as of this encounter Care Teams Social Contact Worker Relationship Specialty Start Date End Date Zhao Harris MD [address] [place] [address] PCP - General 12/03/20 documented as of this encounter
--- OUTSIDE RECORDS SUMMARY | 2024-12-18 09:46 | XMS_ITS | Encounter Summary ---
Author Organization Healthcare Address [address] [place] [address] Care Team Providers Care Black Pickler Name Role Phone Zhao Harris MD Primary Care Provider [phone] Encounter Details Date Type Department Care Team (Latest Contact Info) Description 12/18/2024 9:46 AM EDT - 12/18/2024 11:59 PM EDT Hospital Encounter PAV H Infusion [address] [place] [address] Myelodysplasia (myelodysplastic syndrome) (CMS/HCC) (Primary Dx) Discharge [...] drink first t manav in the morning (EYE-PLASTIC BUBBLE PACKER) to steady your nerves or to get [...] 5 MG tabletIndications :Coronary artery disease involving [place] heart with angina pectoris, unspecified vessel or lesion type (CMS/HCC),Hyperte nsion, unspecified type Take 1 tablet (5 mg) by mouth daily. 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 pectoris, unspecified vessel or [...] Appointment PAV A Interventional Radiology [address] [place] [address] Hussain Calles, RN 02/10/2025 8:30 AM EDT Clinical Support PAV Hematology/BMT and Cellular Therapy Program [address] [address] 02/10/2025 9:00 AM EDT Office Visit PAV Hematology/BMT and Cellular Therapy Program [address] [address] Elaina Boss, PA 800 [facility] [address] [place] [address] 02/10/2025 10:30 AM EDT Appointment [facility] Infusion Clinic 1 [address] [place] [address] 02/11/2025 2:00 PM EDT Appointment [facility] Infusion Clinic 1 [address] [place] [address] 02/12/2025 2:00 PM EDT Appointment [facility] Infusion Clinic 1 [address] [place] [address] 02/13/2025 2:00 PM EDT Appointment [facility] Infusion Clinic 1 [address] [place] [address] 02/14/2025 2:00 PM EDT Appointment [facility] Infusion Clinic 1 [address] [place] [address] 03/10/2025 8:30 AM EDT Clinical Support PAV Hematology/BMT and Cellular Therapy Program [address] [address] 03/10/2025 9:00 AM EDT Office Visit PAV Hematology/BMT and Cellular Therapy Program [address] [address] Isaura Wynn, ELECTRICAL SYSTEMS DRAFTER 800 [facility] [address] [place] [phone] 03/10/2025 11:20 AM EDT Office Visit Pav CC Head, Neck & Respiratory 800 [facility], 2nd [place] [address] Elsa Razo, ELECTRICAL SYSTEMS DRAFTER 800 [place] [phone] documented as of this encounter Visit Diagnoses [...] documented as of this encounter Care Teams Black Pickler Relationship Specialty Start Date End Date Zhao Harris MD [address] [place] [address] PCP - General 12/03/20 documented as of this encounter
--- OUTSIDE RECORDS SUMMARY | 2024-12-19 08:30 | XMS_ITS | Encounter Summary ---
Author Organization [facility] Address [address] [place] [address] Care Team Providers Care Shop Mechanic Helper Name Role Phone Zhao Harris MD Primary Care Provider + [phone] Reason for Visit * Episode Based Medications (Routine) - Closed Specialty Diagnoses / Procedures Referred By Justice mcgee Referred To Contact Diagnoses Myelodysplasia (myelodysplastic syndrome) (CMS/HCC) Procedures Azacitidine Daily x 7 / Venetoclax Every 28 Days Virgen Vargas MD [address] [address] Phone: tel: fax: Virgen Vargas MD [address] [address] Phone: tel: fax: Referral ID Status Reason Start Date Expiration Date Visits Re quested Visits Authorized [id number] Closed 10/20/2024 04/21/2026 1 91 Encounter Details Date Type Department Care Team (Latest Contact Info) Description 12/19/2024 8:30 AM EDT - 12/19/2024 11:59 PM EDT Hospital Encounter [facility] Infusion Clinic 2 [address] [place] [address] Myelodysplasia (myelodysplastic syndrome) (CMS/HCC) (Primary Dx) Discharge [...] first t manav in the morning (EYE-HEALTH CARE SANITARY TECHNICIAN) to steady your nerves or to [...] 5 MG tabletIndications :Coronary artery disease involving [place] heart with angina pectoris, unspecified vessel or lesion type (CMS/HCC),Hyperte nsion, unspecified type Take 1 tablet (5 mg) by mouth daily. 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 pectoris, unspecified vessel or [...] Appointment [facility] Interventional Radiology [address] [place] [address] Hussain Calles RN 02/10/2025 8:30 AM EDT Clinical Support [facility] Hematology/BMT and Cellular Therapy Program [address] [address] 02/10/2025 9:00 AM EDT Office Visit [facility] Hematology/BMT and Cellular Therapy Program [address] [address] Elaina Boss PA 800 [facility] [address] [place] [phone] 02/10/2025 10:30 AM EDT Appointment [facility] 1 [address] [place] [address] 02/11/2025 2:00 PM EDT Appointment [facility] 1 [address] [place] [address] 02/12/2025 2:00 PM EDT Appointment [facility] 1 [address] [place] [address] 02/13/2025 2:00 PM EDT Appointment [facility] 1 [address] [place] [address] 02/14/2025 2:00 PM EDT Appointment [facility] 1 [address] [place] [address] 03/10/2025 8:30 AM EDT Clinical Support [facility] Hematology/BMT and Cellular Therapy Program [address] [address] 03/10/2025 9:00 AM EDT Office Visit [facility] Hematology/BMT and Cellular Therapy Program [address] [address] Isaura Wynn, HADOOP ANALYST 800 [facility] [address] [place] [phone] 03/10/2025 11:20 AM EDT Office Visit [facility] CC Head, Neck & Respiratory 800 [facility], 2nd [place] [phone] Elsa Razo, HADOOP ANALYST [address] [place] [phone] documented as of this encounter Visit Diagnoses [...] Sun12/19/24 at 0900, RoutineIndications:Myelodyspla haim (myelodysplastic syndrome) (CMS/HCC) Given 12/19/2024 8:41 AM EDT 16 mg [...] documented as of this encounter Care Teams Shop Mechanic Helper Relationship Specialty Start Date End Date Zhao Harris MD [address] [place] [address] PCP - General 12/03/20 documented as of this encounter
--- OUTSIDE RECORDS SUMMARY | 2024-12-20 08:08 | XMS_ITS | Encounter Summary ---
Author Organization [facility] Address [address] [facility] [place] [address] Care Team Providers Care Hotel Concierge Name Role Phone Zhao Harris MD Primary Care Provider + [phone] Reason for Visit * Episode Based Medications (Routine) - Closed Specialty Diagnoses / Procedures Referred By Justice mcgee Referred To Contact Diagnoses Myelodysplasia (myelodysplastic syndrome) (CMS/HCC) Procedures Azacitidine Daily x 7 / Venetoclax Every 28 Days Virgen Vargas MD [address] [place] [phone] Phone: tel: fax: Virgen Vargas MD [address] [phone] Phone: tel: fax: Referral ID Status Reason Start Date Expiration Date Visits Re quested Visits Authorized [id number] Closed 10/20/2024 04/21/2026 1 91 Encounter Details Date Type Department Care Team (Latest Contact Info) Description 12/20/2024 8:08 AM EDT - 12/20/2024 11:59 PM EDT Hospital Encounter [facility] Infusion Clinic 1 [address] [place] [phone] Myelodysplasia (myelodysplastic syndrome) (CMS/HCC) (Primary Dx); Thrombocytopenia [...] drink first t manav in the morning (EYE-GAS CUTTER) to steady your nerves or to [...] daily. 90 tablet 3 09/11/2024 HYDROcodone-aceta minophen ([place]) 5-325 MG tablet Take 1 tablet by [...] [facility] st Contact Info) Description 02/02/2025 11:00 AM EDT Appointment [facility] A Interventional Radiology [address] [place] [address] Hussain Calles RN 02/10/2025 8:30 AM EDT Clinical Support [facility] Hematology/BMT and Cellular Therapy Program [address] [place] [address] 02/10/2025 9:00 AM EDT Office Visit [facility] Hematology/BMT and Cellular Therapy Program [address] [place] [address] Elaina Boss PA 800 [facility] [address] [place] [phone] 02/10/2025 10:30 AM EDT Appointment [facility] Infusion Clinic 1 [address] [place] [phone] 02/11/2025 2:00 PM EDT Appointment [facility] Infusion [facility] 1 [address] [place] [phone] 02/12/2025 2:00 PM EDT Appointment [facility] In[facility] 1 [address] [place] [address] 02/13/2025 2:00 PM EDT Appointment [facility]fusion [facility] 1 [address] [place] [phone] 02/14/2025 2:00 PM EDT Appointment [facility] 1 [address] [place] [phone] 03/10/2025 8:30 AM EDT Clinical Support [facility] CC Hematology/BMT and Cellular Therapy Program [address] [phone] 03/10/2025 9:00 AM EDT Office Visit [facility] Hematology/BMT and Cellular Therapy Program [address] [phone] Isaura Wynn, ESTRELLA 800 [facility] [address] [place] [phone] 03/10/2025 11:20 AM EDT Office Visit Pav CC Head, Neck & Respiratory 800 [facility], 2nd [place] [phone] Elsa Razo, ESTRELLA 800 [place] [phone] documented as of this encounter Procedures Procedure [...] Transfuse RBC, Irradiated (12/20/2024 1:31 PM EDT) Kayli CHIU BLOOD TRANSFUSION ORDERA [...] ORDERABLE S Final Result Performing Organization Address [facility] de Phone Number BLOOD BANK 800 [place] [address], * Prepare Leukocyte Reduced RBC: 1 Units, Irradiated (12/20/2024 10:01 AM EDT) Product Code [id number] CH BLOO D BANK Dispense Status Transfused BLOOD BANK Blood Expiration Date [id number] BLOOD BANK Unit Number [id number] CH B LOOD BANK Product Blood Type 9500 BLOOD BANK Blood Type O- BLOOD BANK Crossmatch Compatible BLOOD BANK Other Kayli CHIU BLOOD BANK PRODUCT ORDER VIKAS Final Result BLOOD BANK [address] [place] [address], * (ABNORMAL) CBC and differential (12/20/2024 9:00 AM EDT) WBC Count 0.59(LL) 3.70 - 10.30 10*3/uL LAB HEMATOLOGY METHOD 12/20/2024 10:25 AM EDT [facility] RBC Count 2.46(L) 4.60 - 6.10 10*6/uL LAB HEMATOLOGY METHOD 12/20/2024 10:25 AM EDT [facility] HGB 7.8(L) 13.7 - 17.5 g/dL LAB HEMATOLOGY METHOD 12/20/2024 10:25 AM EDT [facility] HCT 22.0(L) 40.0 - 51.0 % LAB HEMATOLOGY METHOD 12/20/2024 10:25 AM EDT [facility] Platelet Count 22(L) 155 - 369 10*3/uL LAB HEMATOLOGY METHOD 12/20/2024 10:25 AM EDT [facility] MCV 89 79 - 98 fL LAB HEMATOLOGY METHOD 12/20/2024 10:25 AM EDT [facility] MCH 31.7 26.0 - 32.0 pg LAB HEMATOLOGY METHOD 12/20/2024 10:25 AM EDT [facility] MCHC 35.5 30.7 - 35.5 g/dL LAB HEMATOLOGY METHOD 12/20/2024 10:25 AM EDT [facility] RDW 16.0(H) 11.5 - 14.5 % LAB HEMATOLOGY METHOD 12/20/2024 10:25 AM EDT [facility] MPV 11.3 8.8 - 12.5 fL LAB HEMATOLOGY METHOD 12/20/2024 10:25 AM EDT [facility] nRBC 0.0 <=0.0 per 100 WBCs LAB HEMATOLOGY METHOD 12/20/2024 10:25 AM EDT [facility] Differential Type Automated LAB HEMATOLOGY METHOD 12/20/2024 10:25 AM EDT [facility] Neutrophils % 5 % LAB HEMATOLOGY METHOD 12/20/2024 10:25 AM EDT [facility] Lymphocytes % 92 % LAB HEMATOLOGY METHOD 12/20/2024 10:25 AM EDT [facility] Monocytes % 3 % LAB HEMATOLOGY METHOD 12/20/2024 10:25 AM EDT [facility] Eosinophils % 0 % LAB HEMATOLOGY METHOD 12/20/2024 10:25 AM EDT [facility] Basophils % 0 % LAB HEMATOLOGY METHOD 12/20/2024 10:25 AM EDT [facility] Immature Granulocytes % 0 % LAB HEMATOLOGY METHOD 12/20/2024 10:25 AM EDT [facility] Neutrophils Absolute 0.03(LL) 1.60 - 6.10 10*3/uL LAB HEMATOLOGY METHOD 12/20/2024 10:25 AM EDT [facility] Lymphocytes Absolute 0.54(L) 1.20 - 3.90 10*3/uL LAB HEMATOLOGY METHOD 12/20/2024 10:25 AM EDT [facility] Monocytes Absolute 0.02(L) 0.30 - 0.90 10*3/uL LAB HEMATOLOGY METHOD 12/20/2024 10:25 AM EDT [facility] Eosinophils Absolute 0.00 0.00 - 0.50 10*3/uL LAB HEMATOLOGY METHOD 12/20/2024 10:25 AM EDT [facility] Basophils Absolute 0.00 0.00 - 0.10 10*3/uL LAB HEMATOLOGY METHOD 12/20/2024 10:25 AM EDT [facility] Immature Granulocytes Absolute 0.00 0.00 - 0.06 10*3/uL LAB HEMATOLOGY METHOD 12/20/2024 10:25 AM EDT [facility] Blood Blood sample taken from central line / Unknown (Central Line) Existing Catheter / Unknown 12/20/2024 9:00 AM EDT 12/20/2024 9:13 AM EDT Narrative [facility] - 12/20/2024 10:25 AM EDT Therapeutic decision making should be based on absolute values, rather than percentages. us Christina Ramos MD LAB BLOOD ORDERABLES Final Resul t [facility] [address] [place] [address] documented in this encounter Visit Diagnoses Diagnosis [...] 12/20/24 at 0830, RoutineIndications:Myelodyspla haim (myelodysplastic syndrome) ([facility]/HCC) Given 12/20/2024 9:10 AM EDT 16 mg [...] as of this encounter Care Teams Hotel Concierge Relationship Specialty Start Date End Date Zhao Harris MD [address] [place] [address] PCP - General 12/03/20 documented as of this encounter
--- OUTSIDE RECORDS SUMMARY | 2024-12-21 08:30 | XMS_ITS | Encounter Summary ---
Author Organization [facility] Address [address] [place] [address] Care Team Providers Care Wood Gang Sawyer Name Role Phone Zhao Harris MD Primary Care Provider + [phone] Reason for Visit * Episode Based Medications (Routine) - Closed Specialty Diagnoses / Procedures Referred By Justice mcgee Referred To Contact Diagnoses Myelodysplasia (myelodysplastic syndrome) (CMS/HCC) Procedures Azacitidine Daily x 7 / Venetoclax Every 28 Days Virgen Vargas MD [address] [address] Phone: tel: fax: Virgen Vargas MD [address] [address] Phone: tel: fax: Referral ID Status Reason Start Date Expiration Date Visits Re quested Visits Authorized [id number] Closed 10/20/2024 04/21/2026 1 91 Encounter Details Date Type Department Care Team (Latest Contact Info) Description 12/21/2024 8:30 AM EDT - 12/21/2024 11:59 PM EDT Hospital Encounter [facility] Infusion Clinic 1 [address] [place] [phone] Myelodysplasia (myelodysplastic syndrome) (CMS/HCC) (Primary Dx) Discharge [...] drink first t manav in the morning (EYE-FREEZER OPERATOR) to steady your nerves or to [...] 5 MG tabletIndications :Coronary artery disease involving [place] heart with angina pectoris, unspecified vessel or lesion type (CMS/HCC),Hyperte nsion, unspecified type Take 1 tablet (5 mg) by mouth daily. 90 tablet 3 09/11/2024 HYDROcodone-aceta minophen ([place]) 5-325 MG tablet Take 1 tablet by [...] MG SL tabletIndications :Coronary artery disease involving [place] heart with angina pectoris, unspecified vessel or [...] Appointment [facility] A Interventional Radiology [address] [place] [address] Hussain Calles RN 02/10/2025 8:30 AM EDT Clinical Support [facility] Hematology/BMT and Cellular Therapy Program [address] [place] [address] 02/10/2025 9:00 AM EDT Office Visit [facility] Hematology/BMT and Cellular Therapy Program [address] [address] Elaina Boss, ARAM 800 [facility] [address] [place] [address] 02/10/2025 10:30 AM EDT Appointment [facility] Infusion Clinic 1 [address] [place] [address] 02/11/2025 2:00 PM EDT Appointment [facility] Infusion Clinic 1 [address] [place] [address] 02/12/2025 2:00 PM EDT Appointment [facility] Infusion Clinic 1 [address] [place] [address] 02/13/2025 2:00 PM EDT Appointment [facility] Infusion Clinic 1 [address] [place] [address] 02/14/2025 2:00 PM EDT Appointment [facility] Infusion Clinic 1 [address] [place] [address] 03/10/2025 8:30 AM EDT Clinical Support [facility] Hematology/BMT and Cellular Therapy Program [address] [address] 03/10/2025 9:00 AM EDT Office Visit [facility] Hematology/BMT and Cellular Therapy Program [address] [address] Isaura Wynn, LOGISTIC MANAGER 800 [facility] [address] [place] [phone] 03/10/2025 11:20 AM EDT Office Visit [facility] Head, Neck & Respiratory 800 [facility], 2nd [place] [phone] Elsa Razo, LOGISTIC MANAGER 800 [place] [phone] documented as of this encounter Visit Diagnoses [...] documented as of this encounter Care Teams Wood Gang Sawyer Relationship Specialty Start Date End Date Zhao Harris MD [address] [place] [address] PCP - General 12/03/20 documented as of this encounter
--- OUTSIDE RECORDS SUMMARY | 2024-12-22 08:24 | XMS_ITS | Encounter Summary ---
Author Organization [facility] Address [address] [place] [address] Care Team Providers Care Commercial Lines Account Assistant Name Role Phone Zhao Harris MD Primary Care Provider + [phone] Reason for Visit * Episode Based Medications (Routine) - Closed Specialty Diagnoses / Procedures Referred By Justice mcgee Referred To Contact Diagnoses Myelodysplasia (myelodysplastic syndrome) (CMS/HCC) Procedures Azacitidine Daily x 7 / Venetoclax Every 28 Days Virgen Vargas MD 800 [facility] [address] [address] Phone: tel: fax: Virgen Vargas MD [address] [address] Phone: tel: fax: Referral ID Status Reason Start Date Expiration Date Visits Re quested Visits Authorized [id number] Closed 10/20/2024 04/21/2026 1 91 Encounter Details Date Type Department Care Team (Latest Contact Info) Description 12/22/2024 8:24 AM EDT - 12/22/2024 9:57 AM EDT Hospital Encounter PAV H Infusion 800 [place] [phone] Myelodysplasia (myelodysplastic syndrome) (CMS/HCC) (Primary Dx); Thrombocytopenia [...] drink first t manav in the morning (EYE-BESSEMER CONVERTER BLOWER) to steady your nerves or to get [...] daily. 90 tablet 3 09/11/2024 HYDROcodone-aceta minophen ([place]) 5-325 MG tablet Take 1 tablet by [...] Appointment PAV A Interventional Radiology [address] [place] [address] Hussain Calles, BRIAN 02/10/2025 8:30 AM EDT Clinical Support PAV Hematology/BMT and Cellular Therapy Program [address] [place] [address] 02/10/2025 9:00 AM EDT Office Visit PAV Hematology/BMT and Cellular Therapy Program [address] [place] [phone] Elaina Boss, PA 800 [facility] [address] [place] [phone] 02/10/2025 10:30 AM EDT Appointment [facility] Infusion [facility] 1 [address] [place] [phone] 02/11/2025 2:00 PM EDT Appointment [facility] Infusion [facility] 1 [address] [place] [phone] 02/12/2025 2:00 PM EDT Appointment [facility] Infusion [facility] 1 [address] [place] [phone] 02/13/2025 2:00 PM EDT Appointment [facility] Infusion [facility] 1 [address] [place] [phone] 02/14/2025 2:00 PM EDT Appointment [facility] Infusion Clinic 1 [address] [place] [phone] 03/10/2025 8:30 AM EDT Clinical Support PAV Hematology/BMT and Cellular Therapy Program [address] [phone] 03/10/2025 9:00 AM EDT Office Visit PAV Hematology/BMT and Cellular Therapy Program [address] [phone] Isaura Wynn, SUPERVISOR LUMP ROOM 800 [facility] [address] [place] [phone] 03/10/2025 11:20 AM EDT Office Visit Pav CC Head, Neck & Respiratory 800 [facility], 2nd [place] [phone] Elsa Razo, SUPERVISOR LUMP ROOM [address] [place] [phone] documented as of this encounter Procedures Procedure [...] Platelet count (12/22/2024 10:57 AM EDT) Pathologist [facility] Platelet Count 36(L) 155 - 369 10*3/uL LAB HEMATOLOGY METHOD 12/22/2024 11:14 AM EDT [facility] Blood Venous blood specimen / Unknown Venipuncture / Unknown 12/22/2024 10:57 AM EDT 12/22/2024 11:04 AM EDT us Virgen Vargas MD LAB BLOOD ORDERABLES Final Re sult [facility] [address] [place] [address] * Prepare Leukocyte Reduced Platelets: 1 Units (12/22/2024 9:44 AM EDT) Pathologist [facility] Product Code [id number] CH BLOO D BANK Dispense Status Transfused BLOOD BANK Blood Expiration Date [id number] BLOOD BANK Unit Number [id number] B LOOD BANK Product Blood Type 0600 BLOOD BANK Blood Type A- CH BLOOD BANK Blood Venous blood specimen / Unknown us Kayli CHIU BLOOD BANK PRODUCT ORDER VIKAS Final Result BLOOD BANK [address] [place] [address], * (ABNORMAL) CBC and Differential (12/22/2024 8:53 AM EDT) WBC Count 0.50(LL) 3.70 - 10.30 10*3/uL LAB HEMATOLOGY METHOD 12/22/2024 11:33 AM EDT [facility] RBC Count 2.90(L) 4.60 - 6.10 10*6/uL LAB HEMATOLOGY METHOD 12/22/2024 11:33 AM EDT [facility] HGB 8.9(L) 13.7 - 17.5 g/dL LAB HEMATOLOGY METHOD 12/22/2024 11:33 AM EDT [facility] HCT 25.0(L) 40.0 - 51.0 % LAB HEMATOLOGY METHOD 12/22/2024 11:33 AM EDT [facility] Platelet Count 5(LL) 155 - 369 10*3/uL LAB HEMATOLOGY METHOD 12/22/2024 11:33 AM EDT [facility] MCV 86 79 - 98 fL LAB HEMATOLOGY METHOD 12/22/2024 11:33 AM EDT [facility] MCH 30.7 26.0 - 32.0 pg LAB HEMATOLOGY METHOD 12/22/2024 11:33 AM EDT [facility] MCHC 35.6(H) 30.7 - 35.5 g/dL LAB HEMATOLOGY METHOD 12/22/2024 11:33 AM EDT [facility] RDW 15.6(H) 11.5 - 14.5 % LAB HEMATOLOGY METHOD 12/22/2024 11:33 AM EDT [facility] MPV LAB HEMATOLOGY METHOD 12/22/2024 11:33 AM EDT [facility] Comment:Not Measured nRBC 0.0 <=0.0 per 100 WBCs LAB HEMATOLOGY METHOD 12/22/2024 11:33 AM EDT [facility] Differential Type Automated LAB HEMATOLOGY METHOD 12/22/2024 11:33 AM EDT [facility] Neutrophils % 12 % LAB HEMATOLOGY METHOD 12/22/2024 11:33 AM EDT [facility] Lymphocytes % 86 % LAB HEMATOLOGY METHOD 12/22/2024 11:33 AM EDT [facility] Monocytes % 2 % LAB HEMATOLOGY METHOD 12/22/2024 11:33 AM EDT [facility] Eosinophils % 0 % LAB HEMATOLOGY METHOD 12/22/2024 11:33 AM EDT [facility] Basophils % 0 % LAB HEMATOLOGY METHOD 12/22/2024 11:33 AM EDT [facility] Immature Granulocytes % 0 % LAB HEMATOLOGY METHOD 12/22/2024 11:33 AM EDT [facility] Neutrophils Absolute 0.06(LL) 1.60 - 6.10 10*3/uL LAB HEMATOLOGY METHOD 12/22/2024 11:33 AM EDT [facility] Lymphocytes Absolute 0.43(L) 1.20 - 3.90 10*3/uL LAB HEMATOLOGY METHOD 12/22/2024 11:33 AM EDT [facility] Monocytes Absolute 0.01(L) 0.30 - 0.90 10*3/uL LAB HEMATOLOGY METHOD 12/22/2024 11:33 AM EDT [facility] Eosinophils Absolute 0.00 0.00 - 0.50 10*3/uL LAB HEMATOLOGY METHOD 12/22/2024 11:33 AM EDT [facility] Basophils Absolute 0.00 0.00 - 0.10 10*3/uL LAB HEMATOLOGY METHOD 12/22/2024 11:33 AM EDT [facility] Immature Granulocytes Absolute 0.00 0.00 - 0.06 10*3/uL LAB HEMATOLOGY METHOD 12/22/2024 11:33 AM EDT [facility] Blood Venous blood specimen / Unknown Venipuncture / Unknown 12/22/2024 8:53 AM EDT 12/22/2024 8:59 AM EDT [facility] 12/22/2024 11:33 AM EDT Therapeutic decision making should be based on absolute values, rather than percentages. us Virgen Vargas MD LAB BLOOD ORDERABLES Final Re sult [facility] [address] [place] [address] * (ABNORMAL) Comprehensive Metabolic Panel, Plasma (12/22/2024 8:53 AM EDT) Glucose, Plasma 107(H) 74 - 99 mg/dL 12/22/2024 9:29 AM EDT [facility] BUN, Plasma 14 8 - 23 mg/dL 12/22/2024 9:29 AM EDT [facility] Creatinine, Plasma 0.93 0.70 - 1.20 mg/dL 12/22/2024 9:29 AM EDT [facility] BUN/Creatinine Ratio 15 12/22/2024 9:29 AM EDT [facility] Sodium, Plasma 136 136 - 145 mmol/L 12/22/2024 9:29 AM EDT [facility] Potassium, Plasma 4.3 3.6 - 4.9 mmol/L 12/22/2024 9:29 AM EDT [facility] Chloride, Plasma 106 97 - 107 mmol/L 12/22/2024 9:29 AM EDT [facility] CO2, Plasma 22 22 - 29 mmol/L 12/22/2024 9:29 AM EDT [facility] Anion Gap 8 6 - 16 mmol/L 12/22/2024 9:29 AM EDT [facility] Total Calcium, Plasma 9.1 8.9 - 10.2 mg/dL 12/22/2024 9:29 AM EDT [facility] Total Protein 7.0 6.3 - 7.9 g/dL 12/22/2024 9:29 AM EDT [facility] Albumin, Plasma 3.9 3.5 - 5.2 g/dL 12/22/2024 9:29 AM EDT [facility] AST, Plasma 16 10 - 50 U/L 12/22/2024 9:29 AM EDT [facility] ALT, Plasma 12 10 - 50 U/L 12/22/2024 9:29 AM EDT [facility] Alkaline Phosphatase, Plasma 83 40 - 115 U/L 12/22/2024 9:29 AM EDT [facility] Total Bilirubin, Plasma 0.7 0.2 - 1.1 mg/dL 12/22/2024 9:29 AM EDT [facility] eGFRcr 88.9 mL/min/1.7 3m*2 12/22/2024 9:29 AM EDT [facility] Comment:Reported eGFRcr in m L/min/1.73m2 is based the CKD-EPI 2020 equation that does not use a race coefficient. Blood Venous blood specimen / Unknown Venipuncture / Unknown 12/22/2024 8:53 AM EDT 12/22/2024 8:59 AM EDT us Virgen Vargas MD LAB BLOOD ORDERABLES Final Re sult [facility] [address] [place] [address] documented in this encounter Visit Diagnoses Diagnosis [...] documented as of this encounter Care Teams Commercial Lines Account Assistant Relationship Specialty Start Date End Date Zhao Harris MD [address] [place] [address] PCP - General 12/03/20 documented as of this encounter
--- OUTSIDE RECORDS SUMMARY | 2024-12-22 09:58 | XMS_ITS | Encounter Summary ---
Author Organization Healthcare Address [address] [place] [address] Care Team Providers Care Counter Clerk [employer] Name Role Phone Zhao Harris MD Primary Care Provider [phone] Encounter Details Date Type Department Care Team (Latest Contact Info) Description 12/22/2024 9:58 AM EDT - 12/22/2024 11:59 PM EDT Hospital Encounter [facility] [address] [place] [address] Myelodysplasia (myelodysplastic syndrome) (CMS/HCC) (Primary Dx) Discharge [...] drink first t manav in the morning (EYE-HIDE INSPECTOR AND SORTER) to steady your nerves or to get [...] daily. 90 tablet 3 09/11/2024 HYDROcodone-aceta minophen ([place]) 5-325 MG tablet Take 1 tablet by [...] Appointment [facility] A Interventional Radiology [address] [place] [address] Hussain Calles, BRIAN 02/10/2025 8:30 AM EDT Clinical Support P[facility] Hematology/BMT and Cellular Therapy Program [address] [address] 02/10/2025 9:00 AM EDT Office Visit PAV Hematology/BMT and Cellular Therapy Program [address] [address] Elaina Boss, PA 800 [facility] [address] [place] [phone] 02/10/2025 10:30 AM EDT Appointment [facility] 1 [address] [place] [address] 02/11/2025 2:00 PM EDT Appointment [facility] 1 [address] [place] [address] 02/12/2025 2:00 PM EDT Appointment [facility] 1 [address] [place] [address] 02/13/2025 2:00 PM EDT Appointment [facility] 1 [address] [place] [address] 02/14/2025 2:00 PM EDT Appointment [facility] 1 [address] [place] [address] 03/10/2025 8:30 AM EDT Clinical Support PAV Hematology/BMT and Cellular Therapy Program [address] [address] 03/10/2025 9:00 AM EDT Office Visit PAV Hematology/BMT and Cellular Therapy Program [address] [phone] Isaura Wynn, GROUP DYNAMICS INSTRUCTOR 800 [facility] [address] [place] [phone] 03/10/2025 11:20 AM EDT Office Visit Pav CC Head, Neck & Respiratory 800 [facility], 2nd [place] [address] Elsa Raoz, GROUP DYNAMICS INSTRUCTOR 800 [place] [address] documented as of this encounter Visit Diagnoses [...] documented as of this encounter Care Teams Counter Clerk [employer] Relationship Specialty Start Date End Date Zhao Harris MD [address] [place] [address] PCP - General 12/03/20 documented as of this encounter
--- OUTSIDE RECORDS SUMMARY | 2025-01-06 08:30 | XMS_ITS | Encounter Summary ---
Author Organization [facility] Address [address] [place] [address] Care Team Providers Care Screen Printing Supervisor Name Role Phone Zhao Harris MD Primary Care Provider [phone] Reason for Visit * Reason Comments Labs Encounter Details Date Type Department Care Team ([facility] st Contact Info) Description 01/06/2025 8:30 AM EDT Clinical Support P[facility] CC Hematology/BMT and Cellular Therapy Program [address] [place] [address] [place] [address] Nate Ponce, RN Social History Tobacco Use [...] drink first t manav in the morning (EYE-HARNESS REPAIRER) to steady your nerves or to [...] Appointment PAV A Interventional Radiology [address] [place] [address] Hussain Calles, RN 02/10/2025 8:30 AM EDT Clinical Support PAV Hematology/BMT and Cellular Therapy Program [address] [place] [address] 02/10/2025 9:00 AM EDT Office Visit PAV Hematology/BMT and Cellular Therapy Program [address] [phone] Elaina Boss, PA 800 [facility] [address] [place] [address] 02/10/2025 10:30 AM EDT Appointment [facility] Infusion [facility] 1 [address] [place] [address] 02/11/2025 2:00 PM EDT Appointment [facility] Infusion [facility] 1 [address] [place] [address] 02/12/2025 2:00 PM EDT Appointment [facility] Infusion [facility] 1 [address] [place] [address] 02/13/2025 2:00 PM EDT Appointment [facility] Infusion [facility] 1 [address] [place] [address] 02/14/2025 2:00 PM EDT Appointment [facility] Infusion [facility] 1 [address] [place] [address] 03/10/2025 8:30 AM EDT Clinical Support PAV CC Hematology/BMT and Cellular Therapy Program [address] [place] [address] 03/10/2025 9:00 AM EDT Office Visit PAV CC Hematology/BMT and Cellular Therapy Program 750 [facility] [place] [phone] Isaura Wynn, STAFF CERTIFIED NURSE MIDWIFE 800 [facility] [address] [place] [address] 03/10/2025 11:20 AM EDT Office Visit Pav CC Head, Neck & Respiratory 800 [facility], 2nd [place] [phone] Elsa Razo, STAFF CERTIFIED NURSE MIDWIFE [address] [place] [phone] documented as of this encounter Visit Diagnoses [...] documented as of this encounter Care Teams Screen Printing Supervisor Relationship Specialty Start Date End Date Zhao Harris MD [address] [address] PCP - General 12/03/20 documented as of this encounter
--- OUTSIDE RECORDS SUMMARY | 2025-01-06 09:00 | XMS_ITS | Encounter Summary ---
Author Organization [facility] Address [address] [place] [address] Care Team Providers Care Head Pastry Chef Name Role Phone Zhao Harris MD Primary Care Provider [phone] Reason for Visit * Reason Comments Procedure * Genetic Testing (Routine) - Authorized Specialty Diagnoses / Procedures Referred By Justice mcgee Referred To Contact Lab Diagnoses Myelodysplasia (myelodysplastic syndrome) (CMS/HCC) Procedures Leukemia/Lymphoma - Immunophenotyping by Flow Cytometry Virgen Vargas MD [address] [facility] [address] [address] Phone: tel: fax: Referral ID Status Reason Start Date Expiration Date V isits Requested Visits Authorized [id number] Authorized 12/18/2024 06/19/2026 1 1 Encounter Details Date Type Department Care Team (Latest Contact Info) Description 01/06/2025 9:00 AM EDT Procedure Visit [facility] Hematology/BMT and Cellular Therapy Program [address] [place] [address] Kierra Novak APRN [address] [facility] [address] [phone] Myelodysplasia (myelodysplastic syndrome) (CMS/HCC) Social [...] drink first t manav in the morning (EYE-SHOPPER) to steady your nerves or to get [...] yes Risks discussed: Bleeding, infection and pain Munden protocol: Procedure explained and questions answered to [...] [facility] st Contact Info) Description 02/02/2025 11:00 AM EDT Appointment [facility] Interventional Radiology [address] [place] [address] Hussain Calles RN 02/10/2025 8:30 AM EDT Clinical Support [facility] Hematology/BMT and Cellular Therapy Program [address] [phone] 02/10/2025 9:00 AM EDT Office Visit [facility] Hematology/BMT and Cellular Therapy Program [address] [phone] Elaina Boss PA 800 [facility] [address] [place] [phone] 02/10/2025 10:30 AM EDT Appointment [facility] [address] [place] [phone] 02/11/2025 2:00 PM EDT Appointment [facility] 1 [address] [place] [phone] 02/12/2025 2:00 PM EDT Appointment [facility] [address] [place] [phone] 02/13/2025 2:00 PM EDT Appointment [facility] Infusion Clinic [address] [place] [address] 02/14/2025 2:00 PM EDT Appointment [facility] 1 [address] [place] [phone] 03/10/2025 8:30 AM EDT Clinical Support [facility] Hematology/BMT and Cellular Therapy Program [address] [phone] 03/10/2025 9:00 AM EDT Office Visit [facility] Hematology/BMT and Cellular Therapy Program [address] [phone] Isaura Wynn, PRODUCT FINISHER 800 [facility] [address] [place] [phone] 03/10/2025 11:20 AM EDT Office Visit [facility] 800 [facility], 2nd [place] [address] Elsa Razo, PRODUCT FINISHER [address] [place] [phone] documented as of this encounter Procedures Procedure [...] marrow Date/Time: 01/06/2025 10:00 AM Performed by: Keirra Novak APRN Authorized by: Kierra Novak APRN Consent: Consent obtained: Written Consent given by: Patient Risks, benefits, and alternatives were discussed: yes Risks discussed: Bleeding, infection and pain Munden protocol: Procedure explained and questions answered to [...] Clinical Indication AML 01/07/2025 10:18 AM T [facility] Flow Cytometry Interpretation APPROXIMATELY 16% MYELOID BLASTS; EXPRESSING CD34, CD117, CD13, CD33, HLA-DR, PARTIAL CD7, PARTIAL CD123, VARIABLE CD38, AND MODERATE CD45, SEE COMMENT, BONE MARROW ASPIRATE. 01/07/2025 10:18 AM T [facility] Comments Specimen viability [...] disease. Final interpretation requires morphologic correlation ([id number]). The following antibodies were used in this analysis: CD45, CD2, CD3, CD4, CD5, CD7, CD8, CD10, CD13, CD14, CD15, CD16, CD19, CD20, CD33, CD34, CD38, CD56, CD117, HLA-DR, kappa surface light chains, lambda surface light chains, CD123 01/07/2025 10:18 AM [facility] Disclaimer This test was [...] complexity clinical laboratory testing. 01/07/2025 10:18 AM [facility] Pathologist Signature Reviewed by: Tessie Peralta MD 01/07/2025 10:18 AM [facility] MRD Indicated Test Not Indicated 10:18 AM EDT [facility] Bone Marrow Specimen from bone marrow obtained by aspiration / Unknown Non-blood Collection / Unknown 01/06/2025 9:48 AM EDT 01/06/2025 11:20 AM EDT us Virgen Vargas MD LAB FLOW CYTOMETRY ORDERABLES Final Result [facility] [address] [place] [address] * Bone marrow exam (01/06/2025 9:48 AM EDT) Case Report Bone Marrow Case: [id number] Authorizing Provider: Virgen Vargas MD Collected: 01/06/2025 0948 Ordering Location: [facility] Hematology/BMT and Received: 01/06/2025 1108 Cellular Therapy Program Pathologist: Tessie Peralta MD Specimens: A) - Bone Marrow Aspirate, left B) - Bone Marrow Biopsy, left C) - Peripheral Blood for Bone Marrow 6:13 PM EDT [facility] Final Diagnosis BONE MARROW, LEFT POSTERIOR ILIAC CREST, (PERIPHERAL SMEAR, ASPIRATE SMEARS, AND CORE BIOPSY): - MILDLY HYPOCELLULAR BONE MARROW WITH ERYTHROID HYPERPLASIA, MARKEDLY REDUCED GRANULOPOIESIS, PERSISTENT DYSPOIESIS AND 10% BLASTS, SEE COMMENT. 6:13 PM EDT [facility] at 1813 EDT Comment The marrow cellularity is composed of erythroid cells with markedly reduced granulopoiesis and decreased megakaryocytes. Persistent trilineage dyspoiesis is noted. The blast percentages are higher by flow cytometry analysis as the majority of marrow cellularity consists of erythroid precursors that are removed by flow cytometry. 5 6:13 PM EDT [facility] Clinical Information AML 12/22 6:13 PM EDT [facility] CBC and Differential [...] circulating blasts are identified. 5 6:13 PM T [facility] Bone Marrow Differential BONE MARROW DIFFERENTIAL: 400 cells Normal Patient Neutrophils 15-50 0 Metamyelocytes 4-19 1 Myelocytes 1-18 2 Promyelocytes 1-8 1 Blasts 0-2 10 Monocytes 0-5 0 Erythroid 16-38 73 Lymphocytes 3-24 4 Eosinophils 0-6 1 Basophils 0-2 0 Plasma cells 0-4 8 Other 6:13 PM T [facility] Bone Marrow Aspirate and Biopsy Core [...] identified. Bone trabeculae are unremarkable. 6:13 PM [facility] Special and Immunohistochemical Stains Immunohistochemica [...] the [facility], [address] [place] [address]. All tests reported here, except those addressing [...] false negativity on decalcified specimens. 6:13 PM [facility] Flow Cytometry Interpretation APPROXIMATELY 16% MYELOID BLASTS; EXPRESSING CD34, CD117, CD13, CD33, HLA-DR, PARTIAL CD7, PARTIAL CD123, VARIABLE CD38, AND MODERATE CD45, SEE COMMENT, BONE MARROW ASPIRATE ([id number]) 5 6:13 PM [facility] Gross Description B. LEFT A single specimen is received in formalin labeled bone marrow biopsy left posterior iliac crest and consists of 2 piece(s) of tissue measuring 0.8/0.2 cm in length 0.2 cm in diameter. The specimen is submitted in to Histology for decalcification and routine processing. Cold Time: <1m 6:13 PM [facility] Note: A resident was involved in the service. I attest I examined the relevant preparations for the specimens and confirmed the diagnosis or interpretation. 6:13 PM [facility] Bone Marrow Peripheral blood specimen / Unknown [...] MD LAB PATHOLOGY ORDERABLES Terri lara Result [facility] [address] [place] [address] * (ABNORMAL) Comprehensive metabolic panel (01/06/2025 8:49 AM EDT) Glucose, Plasma 100(H) 74 - 99 mg/dL 01/06/2025 9:34 AM EDT [facility] BUN, Plasma 8 8 - 23 mg/dL 01/06/2025 9:34 AM EDT [facility] Creatinine, Plasma 0.76 0.70 - 1.20 mg/dL 01/06/2025 9:34 AM EDT [facility] BUN/Creatinine Ratio 11 01/06/2025 9:34 AM EDT [facility] Sodium, Plasma 138 136 - 145 mmol/L 01/06/2025 9:34 AM EDT [facility] Potassium, Plasma 4.3 3.6 - 4.9 mmol/L 01/06/2025 9:34 AM EDT [facility] Chloride, Plasma 109(H) 97 - 107 mmol/L 01/06/2025 9:34 AM EDT [facility] CO2, Plasma 21(L) 22 - 29 mmol/L 01/06/2025 9:34 AM EDT [facility] Anion Gap 8 6 - 16 mmol/L 01/06/2025 9:34 AM EDT [facility] Total Calcium, Plasma 8.8(L) 8.9 - 10.2 mg/dL 01/06/2025 9:34 AM EDT [facility] Total Protein 6.6 6.3 - 7.9 g/dL 01/06/2025 9:34 AM EDT [facility] Albumin, Plasma 3.9 3.5 - 5.2 g/dL 01/06/2025 9:34 AM EDT [facility] AST, Plasma 25 10 - 50 U/L 01/06/2025 9:34 AM EDT [facility] ALT, Plasma 28 10 - 50 U/L 01/06/2025 9:34 AM EDT [facility] Alkaline Phosphatase, Plasma 83 40 - 115 U/L 01/06/2025 9:34 AM EDT [facility] Total Bilirubin, Plasma 0.5 0.2 - 1.1 mg/dL 01/06/2025 9:34 AM EDT [facility] eGFRcr 97.3 mL/min/1.7 3m*2 01/06/2025 9:34 AM EDT [facility] Comment:Reported eGFRcr in m L/min/1.73m2 is based the CKD-EPI 2020 equation that does not use a race coefficient. Blood Venous blood specimen / Unknown Venipuncture / Unknown 01/06/2025 8:49 AM EDT 01/06/2025 9:01 AM EDT us Christina Ramos MD LAB BLOOD ORDERABLES Final Resul t [facility] [address] [place] [address] * (ABNORMAL) CBC and differential (01/06/2025 8:49 AM EDT) WBC Count 0.59(LL) 3.70 - 10.30 10*3/uL LAB HEMATOLOGY METHOD 01/06/2025 11:36 AM EDT [facility] RBC Count 2.95(L) 4.60 - 6.10 10*6/uL LAB HEMATOLOGY METHOD 01/06/2025 11:36 AM EDT [facility] HGB 8.8(L) 13.7 - 17.5 g/dL LAB HEMATOLOGY METHOD 01/06/2025 11:36 AM EDT [facility] HCT 25.3(L) 40.0 - 51.0 % LAB HEMATOLOGY METHOD 01/06/2025 11:36 AM EDT [facility] Platelet Count 75(L) 155 - 369 10*3/uL LAB HEMATOLOGY METHOD 01/06/2025 11:36 AM EDT [facility] MCV 86 79 - 98 fL LAB HEMATOLOGY METHOD 01/06/2025 11:36 AM EDT [facility] MCH 29.8 26.0 - 32.0 pg LAB HEMATOLOGY METHOD 01/06/2025 11:36 AM EDT [facility] MCHC 34.8 30.7 - 35.5 g/dL LAB HEMATOLOGY METHOD 01/06/2025 11:36 AM EDT [facility] RDW 14.6(H) 11.5 - 14.5 % LAB HEMATOLOGY METHOD 01/06/2025 11:36 AM EDT [facility] MPV 10.7 8.8 - 12.5 fL LAB HEMATOLOGY METHOD 01/06/2025 11:36 AM EDT [facility] nRBC 3.4(H) <=0.0 per 100 WBCs LAB HEMATOLOGY METHOD 01/06/2025 11:36 AM EDT [facility] Differential Type Automated LAB HEMATOLOGY METHOD 01/06/2025 11:36 AM EDT [facility] Neutrophils % 5 % LAB HEMATOLOGY METHOD 01/06/2025 11:36 AM EDT [facility] Lymphocytes % 88 % LAB HEMATOLOGY METHOD 01/06/2025 11:36 AM EDT [facility] Monocytes % 7 % LAB HEMATOLOGY METHOD 01/06/2025 11:36 AM EDT [facility] Eosinophils % 0 % LAB HEMATOLOGY METHOD 01/06/2025 11:36 AM EDT [facility] Basophils % 0 % LAB HEMATOLOGY METHOD 01/06/2025 11:36 AM EDT [facility] Immature Granulocytes % 0 % LAB HEMATOLOGY METHOD 01/06/2025 11:36 AM EDT [facility] Neutrophils Absolute 0.03(LL) 1.60 - 6.10 10*3/uL LAB HEMATOLOGY METHOD 01/06/2025 11:36 AM EDT [facility] Lymphocytes Absolute 0.52(L) 1.20 - 3.90 10*3/uL LAB HEMATOLOGY METHOD 01/06/2025 11:36 AM EDT [facility] Monocytes Absolute 0.04(L) 0.30 - 0.90 10*3/uL LAB HEMATOLOGY METHOD 01/06/2025 11:36 AM EDT [facility] Eosinophils Absolute 0.00 0.00 - 0.50 10*3/uL LAB HEMATOLOGY METHOD 01/06/2025 11:36 AM EDT [facility] Basophils Absolute 0.00 0.00 - 0.10 10*3/uL LAB HEMATOLOGY METHOD 01/06/2025 11:36 AM EDT [facility] Immature Granulocytes Absolute 0.00 0.00 - 0.06 10*3/uL LAB HEMATOLOGY METHOD 01/06/2025 11:36 AM EDT [facility] Blood Venous blood specimen / Unknown Venipuncture / Unknown 01/06/2025 8:49 AM EDT 01/06/2025 9:01 AM EDT Narrative [facility] - 01/06/2025 11:36 AM EDT Therapeutic decision making should be based on absolute values, rather than percentages. us Christina Ramos MD LAB BLOOD ORDERABLES Final Resul t [facility] [address] [place] [address] documented in this encounter Visit Diagnoses Diagnosis [...] documented as of this encounter Care Teams Head Pastry Chef Relationship Specialty Start Date End Date Zhao Harris MD [address] [place] [address] PCP - General 12/03/20 documented as of this encounter
--- OUTSIDE RECORDS SUMMARY | 2025-01-13 09:30 | XMS_ITS | Encounter Summary ---
Author Organization [facility] Address [address] [place] [address] Care Team Providers Care Multifocal Lens Assembler Name Role Phone Zhao Harris MD Primary Care Provider [phone] Reason for Visit * Reason Comments Nurse Visit Labs Encounter Details Date Type Department Care Team ([facility] Contact Info) Description 01/13/2025 9:30 AM EDT Clinical Support PAV CC Hematology/BMT and Cellular Therapy Program [address] [place] [address] [place] [address] Social History Tobacco Use Types Packs/Day Years [...] drink first t manav in the morning (EYE-INFORMATION SECURITY OFFICER) to steady your nerves or to [...] Appointment PAV A Interventional Radiology [address] [place] [address] Hussain Calles, BRIAN 02/10/2025 8:30 AM EDT Clinical Support P[facility] CC Hematology/BMT and Cellular Therapy Program [address] [address] 02/10/2025 9:00 AM EDT Office Visit PAV Hematology/BMT and Cellular Therapy Program [address] [address] Elaina Boss, [place] 800 [facility] [address] [place] [address] 02/10/2025 10:30 AM EDT Appointment [facility] Infusion [facility] 1 744 [place] [address] 02/11/2025 2:00 PM EDT Appointment [facility]fusion [facility] 1 [address] [place] [address] 02/12/2025 2:00 PM EDT Appointment [facility] 1 [address] [place] [address] 02/13/2025 2:00 PM EDT Appointment [facility] 1 [address] [place] [address] 02/14/2025 2:00 PM EDT Appointment [facility]fusion [facility] 1 [address] [place] [address] 03/10/2025 8:30 AM EDT Clinical Support PAV CC Hematology/BMT and Cellular Therapy Program 750 [facility] [place] [place] [address] 03/10/2025 9:00 AM EDT Office Visit PAV Hematology/BMT and Cellular Therapy Program 750 [facility] [place] [place] [address] Isaura Wynn, INTERIOR PANELER 800 [facility] 1[address] [place] [address] 03/10/2025 11:20 AM EDT Office Visit Pav CC Head, Neck & Respiratory 800 [facility], 2nd [place] [address] Elsa Razo, INTERIOR PANELER 800 [place] [address] documented as of this encounter Visit Diagnoses [...] documented as of this encounter Care Teams Multifocal Lens Assembler Relationship Specialty Start Date End Date Zhao Harris MD [address] [place] [phone] PCP - General 12/03/20 documented as of this encounter
--- OUTSIDE RECORDS SUMMARY | 2025-01-13 10:00 | XMS_ITS | Encounter Summary ---
Author Organization [facility] Address [address] [place] [address] Care Team Providers Care Environmental Engineering Assistant Name Role Phone Zhao Harris MD Primary Care Provider [phone] Reason for Referral * Imaging (Routine) - Pending Review Specialty Diagnoses / Procedures Referred By Justice t Referred To Contact Radiology Diagnoses Myelodysplasia (myelodysplastic syndrome) (CMS/HCC) Procedures CT Guided Asp and Biopsy Bone Marrow Consult to Interventional Radiology Virgen Vargas MD 800 [facility] [address] [address] Phone: tel: fax: Referral ID Status Reason Start Date Expiration Date V isits Requested Visits Authorized [id number] Pending Review 01/15/2025 07/17/2026 1 1 * Genetic Testing (Routine) - Pending Review Specialty Diagnoses / Procedures Referred By Justice mcgee Referred To Contact Lab Diagnoses Myelodysplasia (myelodysplastic syndrome) (CMS/HCC) Procedures Cytogenetics Testing, Oncology Virgen Vargas MD [address] [address] Phone: tel: fax: Referral ID Status Reason Start Date Expiration Date V isits Requested Visits Authorized [id number] Pending Review 01/13/2025 07/15/2026 1 1 * Genetic Testing (Routine) - Authorized Specialty Diagnoses / Procedures Referred By Justice mcgee Referred To Contact Lab Diagnoses Myelodysplasia (myelodysplastic syndrome) (CMS/HCC) Procedures Leukemia/Lymphoma - Immunophenotyping by Flow Cytometry Virgen Vargas MD [address] [address] Phone: tel: fax: Referral ID Status Reason Start Date Expiration Date V isits Requested Visits Authorized [id number] Authorized 01/13/2025 07/15/2026 1 1 * Genetic Testing (Routine) - Authorized Specialty Diagnoses / Procedures Referred By Justice mcgee Referred To Contact Lab Diagnoses Myelodysplasia (myelodysplastic syndrome) (CMS/HCC) Procedures Bone marrow exam Virgen Vargas MD [address] [address] Phone: tel: fax: Referral ID Status Reason Start Date Expiration Date V isits Requested Visits Authorized [id number] Authorized 01/13/2025 07/15/2026 1 1 Reason for Visit * Reason Comments Follow-up Encounter Details Date Type Department Care Team (Latest Contact Info) Description 01/13/2025 10:00 AM EDT Office Visit [facility] Hematology/BMT and Cellular Therapy Program [address] [place] [address] Isaura Wynn, ESTRELLA [address] [phone] Myelodysplasia (myelodysplastic syndrome) (CMS/HCC) (Primary [...] drink first t manav in the morning (EYE-SEARCH ANALYST) to steady your nerves or to [...] Not at all 01/13/2025 10:14 AM EDT [place], Cecelia W Feeling down, depressed, or hopeless Several days 01/13/2025 10:14 AM EDT [place], Cecelia W Patient Health Questionnaire -2 Score 1 01/13/2025 10:14 AM EDT [place], Cecelia W * Calculated C-SSRS Risk Score [...] 3: 12/16/24 Plan: Venetoclax rx sent to [facility]. Refills due monthly. Patient will return to clinic in 4 weeks. Will follow-up at that time. * Progress Notes - Isaura Wynn, RECAPPER - 01/13/2025 10:00 AM EDT HEMATOLOGY ONCOLOGY [...] a preserved mata-T cell profile with a CD4:[id number] of 2.7:1. Polyclonal B-cells (3%) and a small plasma cell population (0.6%) were also identified. Cytogenetics: Normal. Molecular Testing: PCR for NPM1 and FLT3 mutations are negative. Next-generation sequencing (NGS) myeloid panel: ASXL1 - p.[id number] - VAF 25% TP53 - p.[id number] - VAF 36% U2AF1 - p.[id number] - VAF 33% 10/20/2024- started treatment with [...] [place]. 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 The third, and most promising, option would be enrollment in a clinical trial, ideally one that targets TP53- mutant disease or incorporates novel agents. He went to [facility] for a second opinion and to discuss [...] daily., Disp: 90 tablet, Rfl: 3 HYDROcodone-acetaminophen ([place]) 5-325 MG tablet, Take 1 tablet by [...] Appointment [facility] A Interventional Radiology [address] [place] [address] Hussain Calles, BRIAN 02/10/2025 8:30 AM EDT Clinical Support [facility] Hematology/BMT and Cellular Therapy Program [address] [place] [address] 02/10/2025 9:00 AM EDT Office Visit [facility] Hematology/BMT and Cellular Therapy Program [address] [place] [phone] Elaina Boss, ARAM 800 [facility] [address] [place] [phone] 02/10/2025 10:30 AM EDT Appointment [facility] 1 [address] [place] [phone] 02/11/2025 2:00 PM EDT Appointment [facility] 1 [address] [place] [address] 02/12/2025 2:00 PM EDT Appointment [facility] 1 [address] [place] [address] 02/13/2025 2:00 PM EDT Appointment [facility] 1 [address] [place] [phone] 02/14/2025 2:00 PM EDT Appointment [facility] 1 [address] [place] [phone] 03/10/2025 8:30 AM EDT Clinical Support [facility] Hematology/BMT and Cellular Therapy Program [address] [phone] 03/10/2025 9:00 AM EDT Office Visit [facility] Hematology/BMT and Cellular Therapy Program [address] [phone] Isaura Wynn, RECAPPER 800 [facility] [address] [place] [phone] 03/10/2025 11:20 AM EDT Office Visit [facility] CC Head, Neck & Respiratory 800 [facility], [address]nd [place] [address] Elsa Razo, RECAPPER [address] [place] [phone] Scheduled Orders Name Type Priority Associated Diagnoses Order Schedule CBC and differential Lab Routine Myelodysplasia (myelodysplastic syndrome) (CMS/HCC) Expected: 01/20/2025, Expires: 01/20/2026 Comprehensive metabolic panel Lab Routine Myelodysplasia (myelodysplastic syndrome) ([facility]) Expected: 01/20/2025, Expires: 01/20/2026 CBC and differential Lab Routine Myelodysplasia (myelodysplastic syndrome) ([facility]) Expected: 01/22/2025, Expires: 01/22/2026 CBC and differential Lab Routine Myelodysplasia (myelodysplastic syndrome) ([facility]) Expected: 01/24/2025, Expires: 01/24/2026 CBC and differential Lab Routine Myelodysplasia (myelodysplastic syndrome) ([facility]) Expected: 01/27/2025, Expires: 01/27/2026 Comprehensive metabolic panel Lab Routine Myelodysplasia (myelodysplastic syndrome) ([facility]) Expected: 01/27/2025, Expires: 01/27/2026 CBC and differential Lab Routine Myelodysplasia (myelodysplastic syndrome) ([facility]) Expected: 01/29/2025, Expires: 01/29/2026 CBC and differential Lab Routine Myelodysplasia (myelodysplastic syndrome) ([facility]) Expected: 01/31/2025, Expires: 01/31/2026 CBC and differential Lab Routine Myelodysplasia (myelodysplastic syndrome) ([facility]) Expected: 02/03/2025, Expires: 02/03/2026 Comprehensive metabolic panel Lab Routine Myelodysplasia (myelodysplastic syndrome) ([facility]) Expected: 02/03/2025, Expires: 02/03/2026 CBC and differential Lab Routine Myelodysplasia (myelodysplastic syndrome) ([facility]) Expected: 02/05/2025, Expires: 02/05/2026 CBC and differential Lab Routine Myelodysplasia (myelodysplastic syndrome) ([facility]) Expected: 02/07/2025, Expires: 02/07/2026 Bone marrow exam Pathology and Cytology Routine Myelodysplasia (myelodysplastic syndrome) ([facility]) Expected: 01/13/2025 (Approximate), Expires: 07/17/2026 Leukemia/Lymphoma - Immunophenotyping by Flow Cytometry Lab Routine Myelodysplasia (myelodysplastic syndrome) ([facility]) Expected: 01/13/2025 (Approximate), Expires: 07/17/2026 Cytogenetics Testing, [...] LAB HEMATOLOGY METHOD 01/17/2025 9:41 AM EDT [facility] RBC Count 2.55(L) 4.60 - 6.10 10*6/uL LAB HEMATOLOGY METHOD 01/17/2025 9:41 AM EDT [facility] HGB 7.6(L) 13.7 - 17.5 g/dL LAB HEMATOLOGY METHOD 01/17/2025 9:41 AM EDT [facility] HCT 21.6(L) 40.0 - 51.0 % LAB HEMATOLOGY METHOD 01/17/2025 9:41 AM EDT [facility] Platelet Count 23(L) 155 - 369 10*3/uL LAB HEMATOLOGY METHOD 01/17/2025 9:41 AM EDT [facility] MCV 85 79 - 98 fL LAB HEMATOLOGY METHOD 01/17/2025 9:41 AM EDT [facility] MCH 29.8 26.0 - 32.0 pg LAB HEMATOLOGY METHOD 01/17/2025 9:41 AM EDT [facility] MCHC 35.2 30.7 - 35.5 g/dL LAB HEMATOLOGY METHOD 01/17/2025 9:41 AM EDT [facility] RDW 14.2 11.5 - 14.5 % LAB HEMATOLOGY METHOD 01/17/2025 9:41 AM EDT [facility] MPV 9.0 8.8 - 12.5 fL LAB HEMATOLOGY METHOD 01/17/2025 9:41 AM EDT [facility] nRBC 0.0 <=0.0 per 100 WBCs LAB HEMATOLOGY METHOD 01/17/2025 9:41 AM EDT [facility] Differential Type Automated LAB HEMATOLOGY METHOD 01/17/2025 9:41 AM EDT [facility] Neutrophils % 7 % LAB HEMATOLOGY METHOD 01/17/2025 9:41 AM EDT [facility] Lymphocytes % 91 % LAB HEMATOLOGY METHOD 01/17/2025 9:41 AM EDT [facility] Monocytes % 2 % LAB HEMATOLOGY METHOD 01/17/2025 9:41 AM EDT [facility] Eosinophils % 0 % LAB HEMATOLOGY METHOD 01/17/2025 9:41 AM EDT [facility] Basophils % 0 % LAB HEMATOLOGY METHOD 01/17/2025 9:41 AM EDT [facility] Immature Granulocytes % 0 % LAB HEMATOLOGY METHOD 01/17/2025 9:41 AM EDT [facility] Neutrophils Absolute 0.04(LL) 1.60 - 6.10 10*3/uL LAB HEMATOLOGY METHOD 01/17/2025 9:41 AM EDT [facility] Lymphocytes Absolute 0.49(L) 1.20 - 3.90 10*3/uL LAB HEMATOLOGY METHOD 01/17/2025 9:41 AM EDT [facility] Monocytes Absolute 0.01(L) 0.30 - 0.90 10*3/uL LAB HEMATOLOGY METHOD 01/17/2025 9:41 AM EDT [facility] Eosinophils Absolute 0.00 0.00 - 0.50 10*3/uL LAB HEMATOLOGY METHOD 01/17/2025 9:41 AM EDT [facility] Basophils Absolute 0.00 0.00 - 0.10 10*3/uL LAB HEMATOLOGY METHOD 01/17/2025 9:41 AM EDT [facility] Immature Granulocytes Absolute 0.00 0.00 - 0.06 10*3/uL LAB HEMATOLOGY METHOD 01/17/2025 9:41 AM EDT [facility] Blood Blood sample taken from central line / Unknown (Port) Long-term Catheter / Unknown 01/17/2025 8:03 AM EDT 01/17/2025 8:07 AM EDT Narrative [facility] - 01/17/2025 9:41 AM EDT Therapeutic decision making should be based on absolute values, rather than percentages. Virgen Vargas MD LAB BLOOD ORDERABLES Final Re sult Performing Organization Address City/[facility]/ZIP Co de Phone Number [facility] [address] [place] [address] * LACTATE DEHYDROGENASE (01/15/2025 8:17 AM EDT) LDH, Plasma 192 116 - 250 U/L 01/15/2025 9:19 AM EDT [facility] Blood Blood sample taken from central line / Unknown (Port) Long-term Catheter / Unknown 01/15/2025 8:17 AM EDT 01/15/2025 8:47 AM EDT Virgen Vargas MD LAB BLOOD ORDERABLES Final Re sult Performing Organization Address [facility]/ZIP Co de Phone Number [facility] [address] [place] [address] * Magnesium (01/15/2025 8:17 AM EDT) Magnesium, Plasma 2.2 1.9 - 2.4 mg/dL 01/15/2025 9:19 AM EDT [facility] Blood Blood sample taken from central line / Unknown (Port) Long-term Catheter / Unknown 01/15/2025 8:17 AM EDT 01/15/2025 8:47 AM EDT Virgen Vargas MD LAB BLOOD ORDERABLES Final Re sult Performing Organization Address City/[facility]/ZIP Co de Phone Number [facility] [address] [place] [address] * Phosphorus (01/15/2025 8:17 AM EDT) Phosphorus, Plasma 3.1 2.5 - 4.5 mg/dL 01/15/2025 9:19 AM EDT [facility] Blood Blood sample taken from central line / Unknown (Port) Long-term Catheter / Unknown 01/15/2025 8:17 AM EDT 01/15/2025 8:47 AM EDT Virgen Vargas MD LAB BLOOD ORDERABLES Final Re sult Performing Organization Address [facility]/ZIP Co de Phone Number [facility] [address] [place] [address] * (ABNORMAL) Uric acid (01/15/2025 8:17 AM EDT) Uric Acid, Plasma 3.0(L) 3.7 - 8.0 mg/dL 01/15/2025 9:19 AM EDT [facility] Blood Blood sample taken from central line / Unknown (Port) Long-term Catheter / Unknown 01/15/2025 8:17 AM EDT 01/15/2025 8:47 AM EDT Virgen Vargas MD LAB BLOOD ORDERABLES Final Re sult Performing Organization Address City/[facility]/ZIP Co de Phone Number [facility] [address] [place] [address] * (ABNORMAL) BASIC METABOLIC PANEL (01/15/2025 8:17 AM EDT) Glucose, Plasma 96 74 - 99 mg/dL 01/15/2025 9:19 AM EDT [facility] BUN, Plasma 12 8 - 23 mg/dL 01/15/2025 9:19 AM EDT [facility] Creatinine, Plasma 0.71 0.70 - 1.20 mg/dL 01/15/2025 9:19 AM EDT [facility] BUN/Creatinine Ratio 17 01/15/2025 9:19 AM EDT [facility] Sodium, Plasma 139 136 - 145 mmol/L 01/15/2025 9:19 AM EDT [facility] Potassium, Plasma 4.1 3.6 - 4.9 mmol/L 01/15/2025 9:19 AM EDT [facility] Chloride, Plasma 108(H) 97 - 107 mmol/L 01/15/2025 9:19 AM EDT [facility] CO2, Plasma 21(L) 22 - 29 mmol/L 01/15/2025 9:19 AM EDT [facility] Anion Gap 10 6 - 16 mmol/L 01/15/2025 9:19 AM EDT [facility] Total Calcium, Plasma 8.9 8.9 - 10.2 mg/dL 01/15/2025 9:19 AM EDT [facility] eGFRcr 99.3 mL/min/1.7 3m*2 01/15/2025 9:19 AM EDT [facility] Comment:Reported eGFRcr in m L/min/1.73m2 is based the CKD-EPI 2020 equation that does not use a race coefficient. Blood Blood sample taken from central line / Unknown (Port) Long-term Catheter / Unknown 01/15/2025 8:17 AM EDT 01/15/2025 8:47 AM EDT us Virgen Vargas MD LAB BLOOD ORDERABLES Final Re sult [facility] [address] [place] [address] * (ABNORMAL) CBC and differential (01/15/2025 8:17 AM EDT) WBC Count 0.53(LL) 3.70 - 10.30 10*3/uL LAB HEMATOLOGY METHOD 01/15/2025 11:53 AM EDT [facility] RBC Count 2.82(L) 4.60 - 6.10 10*6/uL LAB HEMATOLOGY METHOD 01/15/2025 11:53 AM EDT [facility] HGB 8.2(L) 13.7 - 17.5 g/dL LAB HEMATOLOGY METHOD 01/15/2025 11:53 AM EDT [facility] HCT 24.0(L) 40.0 - 51.0 % LAB HEMATOLOGY METHOD 01/15/2025 11:53 AM EDT [facility] Platelet Count 18(LL) 155 - 369 10*3/uL LAB HEMATOLOGY METHOD 01/15/2025 11:53 AM EDT [facility] MCV 85 79 - 98 fL LAB HEMATOLOGY METHOD 01/15/2025 11:53 AM EDT [facility] MCH 29.1 26.0 - 32.0 pg LAB HEMATOLOGY METHOD 01/15/2025 11:53 AM EDT [facility] MCHC 34.2 30.7 - 35.5 g/dL LAB HEMATOLOGY METHOD 01/15/2025 11:53 AM EDT [facility] RDW 14.2 11.5 - 14.5 % LAB HEMATOLOGY METHOD 01/15/2025 11:53 AM EDT [facility] MPV 9.3 8.8 - 12.5 fL LAB HEMATOLOGY METHOD 01/15/2025 11:53 AM EDT [facility] nRBC 0.0 <=0.0 per 100 WBCs LAB HEMATOLOGY METHOD 01/15/2025 11:53 AM EDT [facility] Differential Type Automated LAB HEMATOLOGY METHOD 01/15/2025 11:53 AM EDT [facility] Neutrophils % 8 % LAB HEMATOLOGY METHOD 01/15/2025 11:53 AM EDT [facility] Lymphocytes % 88 % LAB HEMATOLOGY METHOD 01/15/2025 11:53 AM EDT [facility] Monocytes % 4 % LAB HEMATOLOGY METHOD 01/15/2025 11:53 AM EDT [facility] Eosinophils % 0 % LAB HEMATOLOGY METHOD 01/15/2025 11:53 AM EDT [facility] Basophils % 0 % LAB HEMATOLOGY METHOD 01/15/2025 11:53 AM EDT [facility] Immature Granulocytes % 0 % LAB HEMATOLOGY METHOD 01/15/2025 11:53 AM EDT [facility] Neutrophils Absolute 0.04(LL) 1.60 - 6.10 10*3/uL LAB HEMATOLOGY METHOD 01/15/2025 11:53 AM EDT [facility] Lymphocytes Absolute 0.47(L) 1.20 - 3.90 10*3/uL LAB HEMATOLOGY METHOD 01/15/2025 11:53 AM EDT [facility] Monocytes Absolute 0.02(L) 0.30 - 0.90 10*3/uL LAB HEMATOLOGY METHOD 01/15/2025 11:53 AM EDT [facility] Eosinophils Absolute 0.00 0.00 - 0.50 10*3/uL LAB HEMATOLOGY METHOD 01/15/2025 11:53 AM EDT [facility] Basophils Absolute 0.00 0.00 - 0.10 10*3/uL LAB HEMATOLOGY METHOD 01/15/2025 11:53 AM EDT [facility] Immature Granulocytes Absolute 0.00 0.00 - 0.06 10*3/uL LAB HEMATOLOGY METHOD 01/15/2025 11:53 AM EDT [facility] Blood Blood sample taken from central line / Unknown (Port) Long-term Catheter / Unknown 01/15/2025 8:17 AM EDT 01/15/2025 8:59 AM EDT Narrative [facility] - 01/15/2025 11:53 AM EDT Therapeutic decision making should be based on absolute values, rather than percentages. Virgen Vargas MD LAB BLOOD ORDERABLES Final Re sult Performing Organization Address City/[facility]/ZIP Co de Phone Number [facility] [address] [place] [address] * LACTATE DEHYDROGENASE (01/14/2025 9:06 AM EDT) LDH, Plasma 195 116 - 250 U/L 01/14/2025 9:58 AM EDT [facility] Blood Blood sample taken from central line / Unknown (Port) Long-term Catheter / Unknown 01/14/2025 9:06 AM EDT 01/14/2025 9:25 AM EDT Virgen Vargas MD LAB BLOOD ORDERABLES Final Re sult [facility] [address] [place] [address] * Magnesium (01/14/2025 9:06 AM EDT) Magnesium, Plasma 2.2 1.9 - 2.4 mg/dL 01/14/2025 9:58 AM EDT [facility] Blood Blood sample taken from central line / Unknown (Port) Long-term Catheter / Unknown 01/14/2025 9:06 AM EDT 01/14/2025 9:25 AM EDT Virgen Vargas MD LAB BLOOD ORDERABLES Final Re sult Performing Organization Address City/[facility]/ZIP Co de Phone Number [facility] [address] [place] [address] * Phosphorus (01/14/2025 9:06 AM EDT) Phosphorus, Plasma 3.6 2.5 - 4.5 mg/dL 01/14/2025 9:58 AM EDT [facility] Blood Blood sample taken from central line / Unknown (Port) Long-term Catheter / Unknown 01/14/2025 9:06 AM EDT 01/14/2025 9:25 AM EDT Virgen Vargas MD LAB BLOOD ORDERABLES Final Re sult Performing Organization Address [facility]/ZIP [place] [address] * (ABNORMAL) Uric acid (01/14/2025 9:06 AM EDT) Uric Acid, Plasma 3.0(L) 3.7 - 8.0 mg/dL 01/14/2025 9:58 AM EDT [facility] Blood Blood sample taken from central line / Unknown (Port) Long-term Catheter / Unknown 01/14/2025 9:06 AM EDT 01/14/2025 9:25 AM EDT Virgen Vargas MD LAB BLOOD ORDERABLES Final Re sult Performing Organization Address City/[facility]/ZIP Co de Phone Number [facility] [address] [place] [address] * (ABNORMAL) BASIC METABOLIC PANEL (01/14/2025 9:06 AM EDT) Glucose, Plasma 101(H) 74 - 99 mg/dL 01/14/2025 9:58 AM EDT [facility] BUN, Plasma 9 8 - 23 mg/dL 01/14/2025 9:58 AM EDT [facility] Creatinine, Plasma 0.71 0.70 - 1.20 mg/dL 01/14/2025 9:58 AM EDT [facility] BUN/Creatinine Ratio 13 01/14/2025 9:58 AM EDT [facility] Sodium, Plasma 140 136 - 145 mmol/L 01/14/2025 9:58 AM EDT [facility] Potassium, Plasma 4.3 3.6 - 4.9 mmol/L 01/14/2025 9:58 AM EDT [facility] Chloride, Plasma 110(H) 97 - 107 mmol/L 01/14/2025 9:58 AM EDT [facility] CO2, Plasma 21(L) 22 - 29 mmol/L 01/14/2025 9:58 AM EDT [facility] Anion Gap 9 6 - 16 mmol/L 01/14/2025 9:58 AM EDT [facility] Total Calcium, Plasma 8.6(L) 8.9 - 10.2 mg/dL 01/14/2025 9:58 AM EDT [facility] eGFRcr 99.3 mL/min/1.7 3m*2 01/14/2025 9:58 AM EDT [facility] Comment:Reported eGFRcr in m L/min/1.73m2 is based the CKD-EPI 2020 equation that does not use a race coefficient. Blood Blood sample taken from central line / Unknown (Port) Long-term Catheter / Unknown 01/14/2025 9:06 AM EDT 01/14/2025 9:25 AM EDT us Virgen Vargas MD LAB BLOOD ORDERABLES Final Re sult [facility] [address] [place] [address] * (ABNORMAL) Comprehensive Metabolic Panel, Plasma (01/13/2025 10:02 AM EDT) Glucose, Plasma 104(H) 74 - 99 mg/dL 01/13/2025 10:56 AM EDT [facility] BUN, Plasma 9 8 - 23 mg/dL 01/13/2025 10:56 AM EDT [facility] Creatinine, Plasma 0.72 0.70 - 1.20 mg/dL 01/13/2025 10:56 AM EDT [facility] BUN/Creatinine Ratio 13 01/13/2025 10:56 AM EDT [facility] Sodium, Plasma 140 136 - 145 mmol/L 01/13/2025 10:56 AM EDT [facility] Potassium, Plasma 4.5 3.6 - 4.9 mmol/L 01/13/2025 10:56 AM EDT [facility] Chloride, Plasma 109(H) 97 - 107 mmol/L 01/13/2025 10:56 AM EDT [facility] CO2, Plasma 21(L) 22 - 29 mmol/L 01/13/2025 10:56 AM EDT [facility] Anion Gap 10 6 - 16 mmol/L 01/13/2025 10:56 AM EDT [facility] Total Calcium, Plasma 8.9 8.9 - 10.2 mg/dL 01/13/2025 10:56 AM EDT [facility] Total Protein 6.9 6.3 - 7.9 g/dL 01/13/2025 10:56 AM EDT [facility] Albumin, Plasma 4.1 3.5 - 5.2 g/dL 01/13/2025 10:56 AM EDT [facility] AST, Plasma 84(H) 10 - 50 U/L 01/13/2025 10:56 AM EDT [facility] ALT, Plasma 95(H) 10 - 50 U/L 01/13/2025 10:56 AM EDT [facility] Alkaline Phosphatase, Plasma 83 40 - 115 U/L 01/13/2025 10:56 AM EDT [facility] Total Bilirubin, Plasma 0.7 0.2 - 1.1 mg/dL 01/13/2025 10:56 AM EDT [facility] eGFRcr 98.9 mL/min/1.7 3m*2 01/13/2025 10:56 AM EDT [facility] Comment:Reported eGFRcr in m L/min/1.73m2 is based the CKD-EPI 2020 equation that does not use a race coefficient. Blood Blood sample taken from central line / Unknown (Port) Long-term Catheter / Unknown 01/13/2025 10:02 AM EDT 01/13/2025 10:24 AM EDT us Isaura Wynn APRN LAB BLOOD ORDERABLES Final Res ult [facility] [address] [place] [address] * (ABNORMAL) CBC and Differential (01/13/2025 10:02 AM EDT) WBC Count 0.63(LL) 3.70 - 10.30 10*3/uL LAB HEMATOLOGY METHOD 01/13/2025 10:50 AM EDT [facility] RBC Count 2.94(L) 4.60 - 6.10 10*6/uL LAB HEMATOLOGY METHOD 01/13/2025 10:50 AM EDT [facility] HGB 8.9(L) 13.7 - 17.5 g/dL LAB HEMATOLOGY METHOD 01/13/2025 10:50 AM EDT [facility] HCT 24.7(L) 40.0 - 51.0 % LAB HEMATOLOGY METHOD 01/13/2025 10:50 AM EDT [facility] Platelet Count 5(LL) 155 - 369 10*3/uL LAB HEMATOLOGY METHOD 01/13/2025 10:50 AM EDT [facility] MCV 84 79 - 98 fL LAB HEMATOLOGY METHOD 01/13/2025 10:50 AM EDT [facility] MCH 30.3 26.0 - 32.0 pg LAB HEMATOLOGY METHOD 01/13/2025 10:50 AM EDT [facility] MCHC 36.0(H) 30.7 - 35.5 g/dL LAB HEMATOLOGY METHOD 01/13/2025 10:50 AM EDT [facility] RDW 14.4 11.5 - 14.5 % LAB HEMATOLOGY METHOD 01/13/2025 10:50 AM EDT [facility] MPV LAB HEMATOLOGY METHOD 01/13/2025 10:50 AM EDT [facility] Comment:Not Measured nRBC 0.0 <=0.0 per 100 WBCs LAB HEMATOLOGY METHOD 01/13/2025 10:50 AM EDT [facility] Differential Type Automated LAB HEMATOLOGY METHOD 01/13/2025 10:50 AM EDT [facility] Neutrophils % 3 % LAB HEMATOLOGY METHOD 01/13/2025 10:50 AM EDT [facility] Lymphocytes % 94 % LAB HEMATOLOGY METHOD 01/13/2025 10:50 AM EDT [facility] Monocytes % 3 % LAB HEMATOLOGY METHOD 01/13/2025 10:50 AM EDT [facility] Eosinophils % 0 % LAB HEMATOLOGY METHOD 01/13/2025 10:50 AM EDT [facility] Basophils % 0 % LAB HEMATOLOGY METHOD 01/13/2025 10:50 AM EDT [facility] Immature Granulocytes % 0 % LAB HEMATOLOGY METHOD 01/13/2025 10:50 AM EDT [facility] Neutrophils Absolute 0.02(LL) 1.60 - 6.10 10*3/uL LAB HEMATOLOGY METHOD 01/13/2025 10:50 AM EDT [facility] Lymphocytes Absolute 0.59(L) 1.20 - 3.90 10*3/uL LAB HEMATOLOGY METHOD 01/13/2025 10:50 AM EDT [facility] Monocytes Absolute 0.02(L) 0.30 - 0.90 10*3/uL LAB HEMATOLOGY METHOD 01/13/2025 10:50 AM EDT [facility] Eosinophils Absolute 0.00 0.00 - 0.50 10*3/uL LAB HEMATOLOGY METHOD 01/13/2025 10:50 AM EDT [facility] Basophils Absolute 0.00 0.00 - 0.10 10*3/uL LAB HEMATOLOGY METHOD 01/13/2025 10:50 AM EDT [facility] Immature Granulocytes Absolute 0.00 0.00 - 0.06 10*3/uL LAB HEMATOLOGY METHOD 01/13/2025 10:50 AM EDT [facility] Blood Blood sample taken from central line / Unknown (Port) Long-term Catheter / Unknown 01/13/2025 10:02 AM EDT 01/13/2025 10:15 AM EDT [facility] - 01/13/2025 10:50 AM EDT Therapeutic decision making should be based on absolute values, rather than percentages. Isaura Wynn APRN LAB BLOOD ORDERABLES Final Res ult [facility] [address] [place] [address] documented in this encounter Visit Diagnoses Diagnosis [...] as of this encounter Care Teams Environmental Engineering Assistant Relationship Specialty Start Date End Date Zhao Harris MD [facility] [place] [address] PCP - General 12/03/20 documented as of this encounter
--- OUTSIDE RECORDS SUMMARY | 2025-01-13 11:30 | XMS_ITS | Encounter Summary ---
Author Organization [facility] Address [address] [place] [address] Care Team Providers Care Warehouse Lead Name Role Phone Zhao Harris MD Primary Care Provider + [phone] Reason for Visit * Episode Based Medications (Routine) - Authorized Specialty Diagnoses / Procedures Referred By Justice mcgee Referred To Contact Diagnoses Myelodysplasia (myelodysplastic syndrome) (CMS/HCC) Procedures Decitabine Daily x 5 / Venetoclax Every 28 Days Virgen Vargas MD 800 [facility] [address] [address] Phone: tel: fax: Virgen Vargas MD 800 [facility] [address] [address] Phone: tel: fax: Referral ID Status Reason Start Date Expiration Date V isits Requested Visits Authorized [id number] Authorized 01/13/2025 07/15/2026 1 30 Encounter Details Date Type Department Care Team (Latest Contact Info) Description 01/13/2025 11:30 AM EDT - 01/13/2025 11:59 PM EDT Hospital Encounter [facility] Infusion [address] [place] [id number] Myelodysplasia (myelodysplastic syndrome) (CMS/HCC) (Primary Dx); Thrombocytopenia [...] drink first t manav in the morning (EYE-FIG WASHER) to steady your nerves or to get [...] Sign Reading Time Taken Comments Blood Pressure 130/74 01/13/2025 2:05 PM EDT Pulse 54 01/13/2025 2:05 PM EDT Temperature 36.6 C (97.8 F) 01/13/2025 2:05 PM EDT Respiratory Rate 18 01/13/2025 2:05 PM EDT Oxygen Saturation 100% 01/13/2025 1:46 PM EDT Inhaled Oxygen Concentration - - Weight 82.5 kg (181 lb 14.1 oz) 025 12:05 PM EDT Height 170.2 cm (5' 7 ) 01/13/2025 12:0 5 PM EDT Body Mass Index 28.49 01/13/2025 12:05 PM EDT documented in this encounter Functional Status * Over the past 2 weeks, how often have you been bothered by any of the following problems? Question Answer Date of Assessment Author Little interest or pleasure in doing things Not at all 01/13/2025 10:14 AM Cecelia Gallegos Feeling down, depressed, or hopeless Several days 01/13/2025 10:14 AM EDT Cecelia Diaz Patient Health Questionnaire -2 Score 1 01/13/2025 10:14 AM QUINT Cecelia Diaz * Calculated C-SSRS Risk Score (Lifetime/Recent) Answer Date of Assessment Author No Risk Indicated 01/13/2025 10:14 AM EDT Cecelia Messina W * Question Answer Date of Assessment Author 1. Wish to be (Past 1 Month) No 025 10:14 AM Cecelia Gallegos 2. Non-Specific Active Suici berry Thoughts (Past 1 Month) No 01/13/2025 10:14 AM Neeta Gallegos W documented as of this encounter Medications at Time of Discharge acyclovir (Zovirax) 800 MG tabletIndications :Myelodysplasia (myelodysplastic syndrome) (CMS/HCC) Take 1 tablet (800 mg) by mouth in the morning and 1 tablet (800 mg) before bedtime. 60 tablet 3 10/14/2024 amLODIPine (Norvasc) 2.5 MG tablet Take 1 tablet by mouth once daily 90 tablet 1 01/01/2025 bisoprolol (Zebeta) 5 MG tabletIndications :Coronary artery disease involving [place] heart with angina pectoris, unspecified vessel or lesion type (CMS/HCC),Hyperte nsion, unspecified type Take 1 tablet (5 mg) by mouth daily. 90 tablet 3 09/11/2024 HYDROcodone-aceta minophen ([place]) 5-325 MG tablet Take 1 tablet by [...] for 14 days. Take 2 tabs on days 1-14 of a 28 day cycle in combination with other tablets for a total of 70mg daily. 28 tablet 01/13/2025 venetoclax (Venclexta) 50 MG tabletIndications :Myelodysplasia (myelodysplastic syndrome) (CMS/HCC) Take 1 tablet by mouth daily for 14 days. Take on days 1-14 of a 28 day cycle in combination with other tablets for a total of 70mg daily. 14 tablet 01/13/2025 documented as of this encounter Miscellaneous Notes * Addendum Note - Irena Velasquez - 01/13/2025 11:30 AM EDTEncounter addended by: Irena Velasquez on: 01/14/2025 7:41 AM Actions taken: Order list changed, Diagnosis association updated * Addendum Note - Pilo Nolan - 01/13/2025 11:30 AM EDTEncounter addended by: Pilo Nolan on: 01/15/2025 12:48 PM Actions taken: Charge Capture section accepted documented in this encounter Plan of Treatment Upcoming Encounters Date Type Department Care Team (Late st Contact Info) Description 02/02/2025 11:00 AM EDT Appointment [facility] A Interventional Radiology [address] [place] [address] Hussain Calles RN 02/10/2025 8:30 AM EDT Clinical Support [facility] Hematology/BMT and Cellular Therapy Program [address] [place] [phone] 02/10/2025 9:00 AM EDT Office Visit [facility] Hematology/BMT and Cellular Therapy Program [address] [phone] Elaina Boss PA 800 [facility] [address] [place] [phone] 02/10/2025 10:30 AM EDT Appointment [facility] Infusion [facility] [address] [place] [address] 02/11/2025 2:00 PM EDT Appointment [facility] 1 [address] [place] [address] 02/12/2025 2:00 PM EDT Appointment [facility] Infusion Clinic [address] [place] [address] 02/13/2025 2:00 PM EDT Appointment [facility] Infusion Clinic [address] [place] [address] 02/14/2025 2:00 PM EDT Appointment [facility] Infusion Clinic [address] [place] [address] 03/10/2025 8:30 AM EDT Clinical Support [facility] Hematology/BMT and Cellular Therapy Program [address] [address] 03/10/2025 9:00 AM EDT Office Visit [facility] Hematology/BMT and Cellular Therapy Program [address] [phone] Isaura Wynn, CRIMINOLOGY TEACHER 800 [facility] [address] [place] [phone] 03/10/2025 11:20 AM EDT Office Visit Pav CC Head, Neck & Respiratory 800 [facility], 2nd [place] [address] Elsa Razo, CRIMINOLOGY TEACHER [address] [place] [phone] documented as of this encounter Procedures Procedure Name Priority Date/Time Associated Diagnosis Comments PLATELET COUNT, BLOOD STAT 01/13/2025 2:07 PM EDT TRANSFUSE PLATELETS Routine 01/13/2025 1 :31 PM EDT Myelodysplasia (myelodysplastic syndrome) (CMS/HCC) Thrombocytopenia (CMS/HCC) EXCEPTION TO STANDARD PRACTICE, PATHOLOGIST INTERPRETATION Routine 01/13/2025 1:03 PM EDT Myelodysplasia (myelodysplastic syndrome) (CMS/HCC) PREPARE PLATELETS Routine 01/13/2025 12: 07 PM EDT Myelodysplasia (myelodysplastic syndrome) (CMS/HCC) Thrombocytopenia (CMS/HCC) documented in this encounter Results * Transfuse platelets (01/13/2025 2:36 PM EDT) Kayli Daly Janetallegraaxel PA BLOOD TRANSFUSION ORDERA BLES Final Result * Transfuse platelets: 1 Units (01/13/2025 2:36 PM EDT) Kayli Daly Janetallegraaxel PA BLOOD TRANSFUSION ORDERA BLES Final Result * (ABNORMAL) Platelet count (01/13/2025 2:07 PM EDT) Platelet Count 39(L) 155 - 369 10*3/uL LAB HEMATOLOGY METHOD 01/13/2025 2:37 PM EDT [facility] Blood Venous blood specimen / Unknown Venipuncture / Unknown 01/13/2025 2:07 PM EDT 01/13/2025 2:30 PM EDT Result [facility] Virgen Vargas MD LAB BLOOD ORDERABLES Final Re sult [facility] [address] [place] [address] * Exception to Standard Practice, Pathologist Interpretation (01/13/2025 1:03 PM EDT) Clinical Diagnosis, Exception to Standard Practice thrombocytopenia 01/14/2025 8:21 AM EDT BLOOD BANK Interpretation , Exception to Standard Practice Your patient, who is RhD-negative, required transfusion of 1 unit apheresis platelets on 01/13/25. Considering the available inventory and the necessity [...] isoimmunization may be considered, if clinically indicated. 01/14/2025 8:21 AM EDT BLOOD BANK Pathologist Signature, Exception to Standard Practice Reviewed by: Jakob Granados MD 01/14/2025 8:21 AM EDT BLO[facility] BANK LAB CP ASR DISCLAIMER No 01/14/2025 8:21 AM EDT BLOOD BANK Blood Bank Lab Only 01/13/2025 1:03 PM EDT 01/14/2025 7:41 AM EDT Juwan Horton MD LAB BLOOD BANK TEST ORDERAB LES Final Result Performing Organization Address [facility] Co de Phone Number BLOOD BANK [address] * Prepare Leukocyte Reduced Platelets: 1 Units (01/13/2025 12:07 PM EDT) Product Code [id number] CH BLOO D BANK Dispense Status Transfused BLOOD BANK Blood Expiration Date [id number] BLOOD BANK Unit Number [id number] CH B LOOD BANK Product Blood Type 6200 BLOOD BANK Blood Type A+ BLOOD BANK Blood Venous blood specimen / Unknown Kayli CHIU BLOOD BANK PRODUCT ORDER VIKAS Final Result Performing Organization Address [facility] de Phone Number BLOOD BANK [address] documented in this encounter Visit Diagnoses Diagnosis Myelodysplasia (myelodysplastic syndrome) (CMS/HCC)- Primary Myelodysplastic syndrome, unspecified Thrombocytopenia (CMS/HCC) Unspecified thrombocytopenia documented in this encounter Administered Medications Inactive Administered Medications - up to 3 most recent administrations Medication Order MAR Action Action Date Dose Rate Site decitabine (Dacogen) 39 mg in sodium chloride 0.9 % 100 mL IVPB 39 mg (20 mg/m2 1.95 m2 Treatment Plan BSA from Recorded weight), Intravenous, at 137.8 mL/hr, Administer over 60 Minutes, Once, Hazardous Drug-Tier 1 Precautions. Dispose in BLACK Hazardous Waste Container. Chemotherapy: refer to [id number]., On Sun01/13/25 at 1300, For 1 dose, NS 100 mLIndications:Myelodysplasia (myelodysplastic syndrome) (CMS/HCC) New Bag 01/13/2025 12:34 PM EDT 39 mg 137.8 mL/hr prochlorperazine (Compazine) tablet 10 mg 10 mg, Oral, Once, 1 dose, On Sun01/13/25 at 1230, RoutineIndications:Myelodyspla haim (myelodysplastic syndrome) (CMS/HCC) Given 01/13/2025 12:15 PM EDT 10 mg documented in this encounter Additional Health Concerns Assessment Noted Time PHQ-9 Depression Total Score: 0 09/11/19 9:15 AM EST A fall risk assessment has been complete d for the patient 01/13/2025 12:05 PM EDT A Body Mass Index follow-up plan has been documented for the patient 12/16/2024 12:23 PM EDT documented as of this encounter Care Teams Warehouse Lead Relationship Specialty Start Date End Date Zhao Harris MD [facility] [place] [address] PCP - General 12/03/20 documented as of this encounter
--- OUTSIDE RECORDS SUMMARY | 2025-01-14 08:07 | XMS_ITS | Encounter Summary ---
Author Organization [facility] Address [address] [place] [address] Care Team Providers Care Cigarette Machine Operator Name Role Phone Zhao Harris MD Primary Care Provider + [phone] Reason for Visit * Episode Based Medications (Routine) - Authorized Specialty Diagnoses / Procedures Referred By Justice mcgee Referred To Contact Diagnoses Myelodysplasia (myelodysplastic syndrome) (CMS/HCC) Procedures Decitabine Daily x 5 / Venetoclax Every 28 Days Virgen Vargas MD [address] [address] Phone: tel: fax: Virgen Vargas MD [address] [address] Phone: tel: fax: Referral ID Status Reason Start Date Expiration Date V isits Requested Visits Authorized [id number] Authorized 01/13/2025 07/15/2026 1 30 Encounter Details Date Type Department Care Team (Latest Contact Info) Description 01/14/2025 8:07 AM EDT - 01/14/2025 11:59 PM EDT Hospital Encounter [facility] Infusion Clinic 1 [address] [place] [phone] Myelodysplasia (myelodysplastic syndrome) (CMS/HCC) (Primary Dx) Discharge [...] drink first t manav in the morning (EYE-RESOURCE CENTER TEACHER) to steady your nerves or to [...] daily. 90 tablet 3 09/11/2024 HYDROcodone-aceta minophen ([place]) 5-325 MG tablet Take 1 tablet by [...] Upcoming Encounters Date Type Department Care Team ([facility] st Contact Info) Description 02/02/2025 11:00 AM EDT Appointment PAV A Interventional Radiology [address] [place] [address] Hussain Calles RN 02/10/2025 8:30 AM EDT Clinical Support P[facility] Hematology/BMT and Cellular Therapy Program [address] [phone] 02/10/2025 9:00 AM EDT Office Visit [facility] Hematology/BMT and Cellular Therapy Program [address] [phone] Elaina Boss, ARAM 800 [facility] [address] [place] [phone] 02/10/2025 10:30 AM EDT Appointment [facility] Infusion Clinic 1 [address] [place] [phone] 02/11/2025 2:00 PM EDT Appointment [facility] Infusion Clinic 1 [address] [place] [phone] 02/12/2025 2:00 PM EDT Appointment [facility] Infusion Clinic 1 [address] [place] [phone] 02/13/2025 2:00 PM EDT Appointment [facility] Infusion Clinic 1 [address] [place] [phone] 02/14/2025 2:00 PM EDT Appointment [facility] Infusion Clinic 1 [address] [place] [phone] 03/10/2025 8:30 AM EDT Clinical Support [facility] Hematology/BMT and Cellular Therapy Program [address] [phone] 03/10/2025 9:00 AM EDT Office Visit [facility]AV Hematology/BMT and Cellular Therapy Program [address] [phone] Isaura Wynn, STARCH DUMPER 800 [facility] [address] [place] [phone] 03/10/2025 11:20 AM EDT Office Visit Pav CC Head, Neck & Respiratory 800 [facility], 2nd [place] [phone] Elsa Razo, STARCH DUMPER [address] [place] [address] documented as of this encounter [...] CBC and Differential (01/14/2025 9:06 AM EDT) Pathologist [facility] WBC Count 0.54(LL) 3.70 - 10.30 10*3/uL LAB HEMATOLOGY METHOD 01/14/2025 10:14 AM EDT [facility] RBC Count 2.75(L) 4.60 - 6.10 10*6/uL LAB HEMATOLOGY METHOD 01/14/2025 10:14 AM EDT [facility] HGB 8.2(L) 13.7 - 17.5 g/dL LAB HEMATOLOGY METHOD 01/14/2025 10:14 AM EDT [facility] HCT 23.2(L) 40.0 - 51.0 % LAB HEMATOLOGY METHOD 01/14/2025 10:14 AM EDT [facility] Platelet Count 21(L) 155 - 369 10*3/uL LAB HEMATOLOGY METHOD 01/14/2025 10:14 AM EDT [facility] MCV 84 79 - 98 fL LAB HEMATOLOGY METHOD 01/14/2025 10:14 AM EDT [facility] MCH 29.8 26.0 - 32.0 pg LAB HEMATOLOGY METHOD 01/14/2025 10:14 AM EDT [facility] MCHC 35.3 30.7 - 35.5 g/dL LAB HEMATOLOGY METHOD 01/14/2025 10:14 AM EDT [facility] RDW 14.3 11.5 - 14.5 % LAB HEMATOLOGY METHOD 01/14/2025 10:14 AM EDT [facility] MPV 8.1(L) 8.8 - 12.5 fL LAB HEMATOLOGY METHOD 01/14/2025 10:14 AM EDT [facility] nRBC 0.0 <=0.0 per 100 WBCs LAB HEMATOLOGY METHOD 01/14/2025 10:14 AM EDT [facility] Differential Type Automated LAB HEMATOLOGY METHOD 01/14/2025 10:14 AM EDT [facility] Neutrophils % 4 % LAB HEMATOLOGY METHOD 01/14/2025 10:14 AM EDT [facility] Lymphocytes % 92 % LAB HEMATOLOGY METHOD 01/14/2025 10:14 AM EDT [facility] Monocytes % 4 % LAB HEMATOLOGY METHOD 01/14/2025 10:14 AM EDT [facility] Eosinophils % 0 % LAB HEMATOLOGY METHOD 01/14/2025 10:14 AM EDT [facility] Basophils % 0 % LAB HEMATOLOGY METHOD 01/14/2025 10:14 AM [facility] Immature Granulocytes % 0 % LAB HEMATOLOGY METHOD 01/14/2025 10:14 AM [facility] Neutrophils Absolute 0.02(LL) 1.60 - 6.10 10*3/uL LAB HEMATOLOGY METHOD 01/14/2025 10:14 AM [facility] Lymphocytes Absolute 0.50(L) 1.20 - 3.90 10*3/uL LAB HEMATOLOGY METHOD 01/14/2025 10:14 AM EDT [facility] Monocytes Absolute 0.02(L) 0.30 - 0.90 10*3/uL LAB HEMATOLOGY METHOD 01/14/2025 10:14 AM T [facility] Eosinophils Absolute 0.00 0.00 - 0.50 10*3/uL LAB HEMATOLOGY METHOD 01/14/2025 10:14 AM EDT [facility] Basophils Absolute 0.00 0.00 - 0.10 10*3/uL LAB HEMATOLOGY METHOD 01/14/2025 10:14 AM EDT [facility] Immature Granulocytes Absolute 0.00 0.00 - 0.06 10*3/uL LAB HEMATOLOGY METHOD 01/14/2025 10:14 AM T [facility] Blood Blood sample taken from central line / Unknown (Port) Long-term Catheter / Unknown 01/14/2025 9:06 AM EDT 01/14/2025 9:14 AM EDT Narrative [facility] - 01/14/2025 10:14 AM EDT Therapeutic decision making should be based on absolute values, rather than percentages. us Virgen Vargas MD LAB BLOOD ORDERABLES Final Re sult [facility] [address] [place], [place] [phone] * (ABNORMAL) BASIC METABOLIC PANEL (01/14/2025 9:06 AM EDT) Glucose, Plasma 101(H) 74 - 99 mg/dL 01/14/2025 9:58 AM EDT [facility] BUN, Plasma 9 8 - 23 mg/dL 01/14/2025 9:58 AM EDT [facility] Creatinine, Plasma 0.71 0.70 - 1.20 mg/dL 01/14/2025 9:58 AM EDT [facility] BUN/Creatinine Ratio 13 01/14/2025 9:58 AM EDT [facility] Sodium, Plasma 140 136 - 145 mmol/L 01/14/2025 9:58 AM EDT [facility] Potassium, Plasma 4.3 3.6 - 4.9 mmol/L 01/14/2025 9:58 AM EDT [facility] Chloride, Plasma 110(H) 97 - 107 mmol/L 01/14/2025 9:58 AM EDT [facility] CO2, Plasma 21(L) 22 - 29 mmol/L 01/14/2025 9:58 AM EDT [facility] Anion Gap 9 6 - 16 mmol/L 01/14/2025 9:58 AM EDT [facility] Total Calcium, Plasma 8.6(L) 8.9 - 10.2 mg/dL 01/14/2025 9:58 AM EDT [facility] eGFRcr 99.3 mL/min/1.7 3m*2 01/14/2025 9:58 AM EDT [facility] Comment:Reported eGFRcr in m L/min/1.73m2 is based the CKD-EPI 2020 equation that does not use a race coefficient. Blood Blood sample taken from central line / Unknown (Port) Long-term Catheter / Unknown 01/14/2025 9:06 AM EDT 01/14/2025 9:25 AM EDT Virgen Vargas MD LAB BLOOD ORDERABLES Final Re sult Performing Organization Address City/[facility]/ZIP [place] [address] * (ABNORMAL) Uric acid (01/14/2025 9:06 AM EDT) Uric Acid, Plasma 3.0(L) 3.7 - 8.0 mg/dL 01/14/2025 9:58 AM EDT [facility] Blood Blood sample taken from central line / Unknown (Port) Long-term Catheter / Unknown 01/14/2025 9:06 AM EDT 01/14/2025 9:25 AM EDT Virgen Vargas MD LAB BLOOD ORDERABLES Final Re sult Performing Organization Address [facility]/ZIP [place] [address] * Phosphorus (01/14/2025 9:06 AM EDT) Phosphorus, Plasma 3.6 2.5 - 4.5 mg/dL 01/14/2025 9:58 AM EDT [facility] Blood Blood sample taken from central line / Unknown (Port) Long-term Catheter / Unknown 01/14/2025 9:06 AM EDT 01/14/2025 9:25 AM EDT Virgen Vargas MD LAB BLOOD ORDERABLES Final Re sult Performing Organization Address City/[facility]/ZIP [place] [address] * Magnesium (01/14/2025 9:06 AM EDT) Magnesium, Plasma 2.2 1.9 - 2.4 mg/dL 01/14/2025 9:58 AM EDT [facility] Blood Blood sample taken from central line / Unknown (Port) Long-term Catheter / Unknown 01/14/2025 9:06 AM EDT 01/14/2025 9:25 AM EDT Virgen Vargas MD LAB BLOOD ORDERABLES Final Re sult Performing Organization Address [facility] Co de Phone Number [facility] [address] [place] [address] * LACTATE DEHYDROGENASE (01/14/2025 9:06 AM EDT) LDH, Plasma 195 116 - 250 U/L 01/14/2025 9:58 AM EDT [facility] Blood Blood sample taken from central line / Unknown (Port) Long-term Catheter / Unknown 01/14/2025 9:06 AM EDT 01/14/2025 9:25 AM EDT Virgen Vargas MD LAB BLOOD ORDERABLES Final Re sult Performing Organization Address [facility] [place] [address] documented in this encounter Visit Diagnoses Diagnosis [...] of this encounter Care Teams Cigarette Machine Operator Relationship Specialty Start Date End Date Zhao Harris MD [address] [place] [address] PCP - General 12/03/20 documented as of this encounter
--- OUTSIDE RECORDS SUMMARY | 2025-01-15 08:11 | XMS_ITS | Encounter Summary ---
Author Organization [facility] Address [address] [facility] [place] [address] Care Team Providers Care Complaint Coordinator Name Role Phone Zhao Harris MD Primary Care Provider + [phone] Reason for Visit * Episode Based Medications (Routine) - Authorized Specialty Diagnoses / Procedures Referred By Justice mcgee Referred To Contact Diagnoses Myelodysplasia (myelodysplastic syndrome) (CMS/HCC) Procedures Decitabine Daily x 5 / Venetoclax Every 28 Days Virgen Vargas MD 800 [facility] [address] [address] Phone: tel: fax: Virgen Vargas MD [address] [address] Phone: tel: fax: Referral ID Status Reason Start Date Expiration Date V isits Requested Visits Authorized [id number] Authorized 01/13/2025 07/15/2026 1 30 Encounter Details Date Type Department Care Team (Latest Contact Info) Description 01/15/2025 8:11 AM EDT - 01/15/2025 9:57 AM EDT Hospital Encounter [facility] H Infusion [address] [place] [phone] Myelodysplasia (myelodysplastic syndrome) (CMS/HCC) (Primary Dx); Thrombocytopenia [...] drink first t manav in the morning (EYE-CHANNEL WORKER) to steady your nerves or to [...] 5 MG tabletIndications :Coronary artery disease involving [place] heart with angina pectoris, unspecified vessel or lesion type (CMS/HCC),Hyperte nsion, unspecified type Take 1 tablet (5 mg) by mouth daily. 90 tablet 3 09/11/2024 HYDROcodone-aceta minophen ([place]) 5-325 MG tablet Take 1 tablet by [...] MG SL tabletIndications :Coronary artery disease involving [place] heart with angina pectoris, unspecified vessel or [...] [facility] A Interventional Radiology [address] [place] [address] Hussain Calles RN 02/10/2025 8:30 AM EDT Clinical Support [facility] CC Hematology/BMT and Cellular Therapy Program [address] [place] [address] 02/10/2025 9:00 AM EDT Office Visit PAV Hematology/BMT and Cellular Therapy Program [address] [place] [address] Elaina Boss, PA 800 [facility] [address] [place] [phone] 02/10/2025 10:30 AM EDT Appointment [facility] Infusion [facility] 1 [address] [place] [address] 02/11/2025 2:00 PM EDT Appointment [facility]fusion [facility] 1 [address] [place] [address] 02/12/2025 2:00 PM EDT Appointment [facility]fusion [facility] 1 [address] [place] [address] 02/13/2025 2:00 PM EDT Appointment [facility] 1 [address] [place] [address] 02/14/2025 2:00 PM EDT Appointment [facility]fusion [facility] 1 [address] [place] [address] 03/10/2025 8:30 AM EDT Clinical Support [facility] Hematology/BMT and Cellular Therapy Program [address] [address] 03/10/2025 9:00 AM EDT Office Visit PAV Hematology/BMT and Cellular Therapy Program [address] [phone] Isaura Wynn, ESTRELLA 800 [facility] [address] [phone] 03/10/2025 11:20 AM EDT Office Visit Pav Head, Neck & Respiratory 800 [facility], 2nd [place] [address] DungElsa Marquis, STRINGED INSTRUMENT TUNER [address] [place] [phone] documented as of this encounter Procedures Procedure [...] * Transfuse platelets (01/15/2025 10:55 AM EDT) Kayli CHIU BLOOD TRANSFUSION ORDERA BLES Final Result * Transfuse platelets: 1 Units (01/15/2025 10:55 AM EDT) us Kayli Daly Janetallegraaxel CHIU BLOOD [...] 10:08 AM EDT 01/16/2025 8:44 AM EDT Juwan Horton MD LAB BLOOD BANK TEST ORDERAB LES Final Result BLOOD BANK [address] [place] [address], * Prepare Leukocyte Reduced Platelets: 1 Units (01/15/2025 9:55 AM EDT) Product Code [id number] HERNÁN BLOO D BANK Dispense Status Transfused BLOOD BANK Blood Expiration Date [id number] BLOOD BANK Unit Number [id number] CH B LOOD BANK Product Blood Type 6200 BLOOD BANK Blood Type A+ BLOOD BANK Blood Venous blood specimen / Unknown us Kayli CHIU BLOOD BANK PRODUCT ORDER VIKAS Final Result BLOOD BANK [address] [place] [address], [place] * (ABNORMAL) CBC and differential (01/15/2025 8:17 [...] 8:17 AM EDT 01/15/2025 8:59 AM EDT [facility] LAB - 01/15/2025 11:53 AM EDT Therapeutic decision making should be based on absolute values, rather than percentages. us Virgen Vargas MD LAB BLOOD ORDERABLES Final Re sult [facility] [address] [place] [address] * (ABNORMAL) BASIC METABOLIC PANEL (01/15/2025 8:17 [...] sult [facility] [address] [place] [address] * (ABNORMAL) Uric acid (01/15/2025 8:17 AM EDT) Uric Acid, Plasma 3.0(L) 3.7 - 8.0 mg/dL 01/15/2025 9:19 AM EDT [facility] Blood Blood sample taken from central line / Unknown (Port) Long-term Catheter / Unknown 01/15/2025 8:17 AM EDT 01/15/2025 8:47 AM EDT Virgen Vargas MD LAB BLOOD ORDERABLES Final Re sult Performing Organization Address [facility] [place] [address] * Phosphorus (01/15/2025 8:17 AM EDT) Phosphorus, Plasma 3.1 2.5 - 4.5 mg/dL 01/15/2025 9:19 AM EDT [facility] Blood Blood sample taken from central line / Unknown (Port) Long-term Catheter / Unknown 01/15/2025 8:17 AM EDT 01/15/2025 8:47 AM EDT Virgen Vargas MD LAB BLOOD ORDERABLES Final Re sult Performing Organization Address [facility]/ZIP Co de Phone Number [facility] [address] [place] [address] * Magnesium (01/15/2025 8:17 AM EDT) Magnesium, Plasma 2.2 1.9 - 2.4 mg/dL 01/15/2025 9:19 AM EDT [facility] Blood Blood sample taken from central line / Unknown (Port) Long-term Catheter / Unknown 01/15/2025 8:17 AM EDT 01/15/2025 8:47 AM EDT us Virgen Vargas MD LAB BLOOD ORDERABLES Final Re sult Performing Organization Address City/[facility]/ZIP Co de Phone Number [facility] [address] [place] [address] * LACTATE DEHYDROGENASE (01/15/2025 8:17 AM EDT) LDH, Plasma 192 116 - 250 U/L 01/15/2025 9:19 AM EDT [facility] Blood Blood sample taken from central line / Unknown (Port) Long-term Catheter / Unknown 01/15/2025 8:17 AM EDT 01/15/2025 8:47 AM EDT us Virgen Vargas MD LAB BLOOD ORDERABLES Final Re sult Performing Organization Address [facility]/ZIP Co de Phone Number [facility] [address] [place] [address] documented in this encounter Visit Diagnoses Diagnosis [...] documented as of this encounter Care Teams Complaint Coordinator Relationship Specialty Start Date End Date Zhao Harris MD [address] [place] [address] PCP - General 12/03/20 documented as of this encounter
--- OUTSIDE RECORDS SUMMARY | 2025-01-15 09:58 | XMS_ITS | Encounter Summary ---
Author Organization Healthcare Address [address] 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, unspecified vessel or [...] Appointment [facility] A Interventional Radiology [address] [place] [address] Hussain Calles RN 02/10/2025 8:30 AM EDT Clinical Support [facility] Hematology/BMT and Cellular Therapy Program [address] [address] 02/10/2025 9:00 AM EDT Office Visit [facility] Hematology/BMT and Cellular Therapy Program [address] [place] [address] Elaina Boss, PA 800 [facility] [address] [place] [phone] 02/10/2025 10:30 AM EDT Appointment [facility] 1 744 [place] [address] 02/11/2025 2:00 PM EDT Appointment [facility] 1 [address] [place] [address] 02/12/2025 2:00 PM EDT Appointment [facility] 1 [address]44 [place] [address] 02/13/2025 2:00 PM EDT Appointment [facility] 1 [address] [place] [address] 02/14/2025 2:00 PM EDT Appointment [facility] 1 [address] [place] [address] 03/10/2025 8:30 AM EDT Clinical Support [facility] Hematology/BMT and Cellular Therapy Program [address] [address] 03/10/2025 9:00 AM EDT Office Visit [facility] Hematology/BMT and Cellular Therapy Program [address] [place] [address] Isaura Wynn, ESTRELLA 800 [facility] [address] [address] 03/10/2025 11:20 AM EDT Office Visit [facility] Respiratory 800 [facility], 2nd [place] [address] Elsa Razo, TOWER SWITCH OPERATOR [address] [place] [address] documented as of this encounter Visit Diagnoses [...] documented as of this encounter Care Teams Nozzleman Relationship Specialty Start Date End Date Zhao Harris MD [facility]0 [place] [address] PCP - General 12/03/20 documented as of this encounter
--- OUTSIDE RECORDS SUMMARY | 2025-01-16 07:55 | XMS_ITS | Encounter Summary ---
Author Organization [facility] Address [address] [place] [address] Care Team Providers Care Sr Vice President Name Role Phone Zhao Harris MD Primary Care Provider [phone] Reason for Visit * Episode Based Medications (Routine) - Authorized Specialty Diagnoses / Procedures Referred By Justice [email or web address] Referred To Contact Diagnoses Myelodysplasia (myelodysplastic syndrome) (CMS/HCC) Procedures Decitabine Daily x 5 / Venetoclax Every 28 Days Virgen Vargas MD 800 [facility] [address] [address] Phone: tel: fax: Virgen Vargas MD [address] [address] Phone: tel: fax: Referral ID Status Reason Start Date Expiration Date V isits Requested Visits Authorized [id number] Authorized 01/13/2025 07/15/2026 1 30 Encounter Details Date Type Department Care Team (Latest Contact Info) Description 01/16/2025 7:55 AM EDT - 01/16/2025 11:59 PM EDT Hospital Encounter [facility] H Infusion 800 [place] [phone] Myelodysplasia (myelodysplastic syndrome) (CMS/HCC) (Primary Dx) Discharge [...] drink first t manav in the morning (EYE-C DEVELOPER) to steady your nerves or to [...] Sign Reading Time Taken Comments Blood Pressure 121/75 01/16/2025 7:56 AM EDT Pulse 69 01/16/2025 7:56 AM EDT Temperature 36.6 C (97.8 F) 01/16/2025 7:56 AM EDT Respiratory Rate 16 01/16/2025 7:56 AM EDT Oxygen Saturation 99% 01/16/2025 7:56 AM EDT Inhaled Oxygen Concentration - - Weight 82.2 kg (181 lb 3.5 oz) 01/16/2025 7:56 A M EDT Height 170.2 cm (5' 7 ) 01/16/2025 7:56 AM EDT Body Mass Index 28.38 01/16/2025 7:56 AM EDT documented in this encounter Medications [...] 5 MG tabletIndications :Coronary artery disease involving [place] heart with angina pectoris, unspecified vessel or lesion type (CMS/HCC),Hyperte nsion, unspecified type Take 1 tablet (5 mg) by mouth daily. 90 tablet 3 09/11/2024 HYDROcodone-aceta minophen ([place]) 5-325 MG tablet Take 1 tablet [...] MG SL tabletIndications :Coronary artery disease involving [place] heart with angina pectoris, unspecified vessel [...] * Addendum Note - Pilo Nolan - 01/16/2025 8:00 AM EDTEncounter addended by: Pilo Nolan on: 01/20/2025 10:28 AM Actions taken: Charge Capture section accepted documented in this encounter Plan of Treatment Upcoming Encounters Date Type Department Care Team (Late st Contact Info) Description 02/02/2025 11:00 AM EDT Appointment PAV A Interventional Radiology [address] [place] [address] Hussain Calles RN 02/10/2025 8:30 AM EDT Clinical Support [facility] CC Hematology/BMT and Cellular Therapy Program [address] [address] 02/10/2025 9:00 AM EDT Office Visit [facility] Hematology/BMT and Cellular Therapy Program [address] [address] Elaina Boss, PA 800 [facility] [address] [place] [phone] 02/10/2025 10:30 AM EDT Appointment [facility]fusion [facility] 1 [address] [place] [address] 02/11/2025 2:00 PM EDT Appointment [facility]fusion [facility] 1 [address] [place] [address] 02/12/2025 2:00 PM EDT Appointment [facility]fusion [facility] 1 [address] [place] [address] 02/13/2025 2:00 PM EDT Appointment [facility] Infusion [facility] 1 [address] [place] [address] 02/14/2025 2:00 PM EDT Appointment [facility]fusion [facility] 1 [address] [place] [address] 03/10/2025 8:30 AM EDT Clinical Support [facility] Hematology/BMT and Cellular Therapy Program [address] [address] 03/10/2025 9:00 AM EDT Office Visit [facility] Hematology/BMT and Cellular Therapy Program [address] [address] Isaura Wynn, CRATE MAKER 800 [facility] [address] [phone] 03/10/2025 11:20 AM EDT Office Visit Pav Head[facility] Neck & Respiratory 800 [facility], 2nd [place] [phone] Elsa Razo, CRATE MAKER [address] [place] [address] documented as of this encounter Procedures Procedure Name Priority Date/Time Associated Diagnosis Comments TYPE AND SCREEN Routine 01/16/2025 9:54 AM EDT PLATELET COUNT, BLOOD STAT 01/16/2025 8:12 AM EDT CBC W/O DIFFERENTIAL STAT Add-on 01/16/2025 8:12 AM EDT documented in this encounter Results * Type and Screen (01/16/2025 9:54 AM EDT) Pathologist [facility] ABO/Rh O Negative 01/16/2025 9:51 AM EDT BLOOD BANK Antibody Screen Negative 01/16/2025 9:51 AM EDT BLOOD BANK Specimen Expiration 01/19/2025 23:59 01/16/2025 9:51 AM EDT BLOOD BANK Blood Venous blood specimen / Unknown Venipuncture / Unknown 01/16/2025 9:54 AM EDT 01/16/2025 10:02 AM EDT us Virgen Vargas MD LAB BLOOD BANK TEST ORDERABLE S Final Result BLOOD BANK 800 [place] [address], * (ABNORMAL) CBC W/O Differential (01/16/2025 8:12 AM EDT) WBC Count 0.49(LL) 3.70 - 10.30 10*3/uL LAB HEMATOLOGY METHOD 01/16/2025 11:30 AM EDT [facility] RBC Count 2.65(L) 4.60 - 6.10 10*6/uL LAB HEMATOLOGY METHOD 01/16/2025 11:30 AM EDT [facility] HGB 8.0(L) 13.7 - 17.5 g/dL LAB HEMATOLOGY METHOD 01/16/2025 11:30 AM EDT [facility] HCT 23.0(L) 40.0 - 51.0 % LAB HEMATOLOGY METHOD 01/16/2025 11:30 AM EDT [facility] Platelet Count 39(L) 155 - 369 10*3/uL LAB HEMATOLOGY METHOD 01/16/2025 11:30 AM EDT [facility] MCV 87 79 - 98 fL LAB HEMATOLOGY METHOD 01/16/2025 11:30 AM EDT [facility] MCH 30.2 26.0 - 32.0 pg LAB HEMATOLOGY METHOD 01/16/2025 11:30 AM EDT [facility] MCHC 34.8 30.7 - 35.5 g/dL LAB HEMATOLOGY METHOD 01/16/2025 11:30 AM EDT [facility] RDW 14.5 11.5 - 14.5 % LAB HEMATOLOGY METHOD 01/16/2025 11:30 AM EDT [facility] MPV 10.2 8.8 - 12.5 fL LAB HEMATOLOGY METHOD 01/16/2025 11:30 AM EDT [facility] nRBC 0.0 <=0.0 per 100 WBCs LAB HEMATOLOGY METHOD 01/16/2025 11:30 AM EDT [facility] Blood Blood sample taken from central line / Unknown Venipuncture / Unknown 01/16/2025 8:12 AM EDT 01/16/2025 8:27 AM EDT Virgen Vargas MD LAB BLOOD ORDERABLES Final Re sult [facility] [address] [place] [address] * (ABNORMAL) Platelet count (01/16/2025 8:12 AM EDT) Platelet Count 39(L) 155 - 369 10*3/uL LAB HEMATOLOGY METHOD 01/16/2025 8:38 AM EDT [facility] Blood Blood sample taken from central line / Unknown Venipuncture / Unknown 01/16/2025 8:12 AM EDT 01/16/2025 8:27 AM EDT Virgen Vargas MD LAB BLOOD ORDERABLES Final Re sult [facility] [address] [place] [address] documented in this encounter Visit Diagnoses Diagnosis [...] Waste Container. Chemotherapy: refer to [id number]., On Sun01/16/25 at 0900, For 1 dose, NS 100 mLIndications:Myelodysplasia (myelodysplastic syndrome) (CMS/HCC) New Bag 01/16/2025 8:43 AM EDT 39 mg 137.8 mL/hr prochlorperazine (Compazine) tablet 10 mg 10 mg, Oral, Once, 1 dose, On Sun01/16/25 at 0830, RoutineIndications:Myelodyspla haim (myelodysplastic syndrome) (CMS/HCC) Given 01/16/2025 8:13 AM EDT 10 mg documented in this encounter Additional Health Concerns Assessment Noted Time PHQ-9 Depression Total Score: 0 09/11/19 9:15 AM EST A fall risk assessment has been complete d for the patient 01/16/2025 7:56 AM EDT A Body Mass Index follow-up plan has been documented for the patient 01/14/2025 10:46 AM EDT documented as of this encounter Care Teams Sr Vice President Relationship Specialty Start Date End Date Zhao Harris MD [address] [place] [address] PCP - General 12/03/20 documented as of this encounter
--- OUTSIDE RECORDS SUMMARY | 2025-01-17 07:45 | XMS_ITS | Encounter Summary ---
Author Organization [facility] Address [address] [place] [address] Care Team Providers Care High School Principal Name Role Phone Zhao Harris MD Primary Care Provider + [phone] Reason for Visit * Episode Based Medications (Routine) - Authorized Specialty Diagnoses / Procedures Referred By Justice mcgee Referred To Contact Diagnoses Myelodysplasia (myelodysplastic syndrome) (CMS/HCC) Procedures Decitabine Daily x 5 / Venetoclax Every 28 Days Virgen Vargas MD 800 [facility] [address] [address] Phone: tel: fax: Virgen Vargas MD [address] [address] Phone: tel: fax: Referral ID Status Reason Start Date Expiration Date V isits Requested Visits Authorized [id number] Authorized 01/13/2025 07/15/2026 1 30 Encounter Details Date Type Department Care Team (Latest Contact Info) Description 01/17/2025 7:45 AM EDT - 01/17/2025 11:59 PM EDT Hospital Encounter PAV H Infusion 800 [place] [phone] Myelodysplasia (myelodysplastic syndrome) (CMS/HCC) (Primary Dx); Thrombocytopenia [...] drink first t manav in the morning (EYE-PRESCHOOL TEACHER'S ASSISTANT) to steady your nerves or to [...] 5 MG tabletIndications :Coronary artery disease involving [place] heart with angina pectoris, unspecified vessel or [...] MG SL tabletIndications :Coronary artery disease involving [place] heart with angina pectoris, unspecified vessel or [...] Team ([facility] Contact Info) Description 02/02/2025 11:00 AM EDT Appointment PAV A Interventional Radiology [address] [place] [address] Hussain Calles RN 02/10/2025 8:30 AM EDT Clinical Support PAV Hematology/BMT and Cellular Therapy Program [address] [address] 02/10/2025 9:00 AM EDT Office Visit PAV Hematology/BMT and Cellular Therapy Program [address] [address] Elaina Boss PA 800 [facility] [address] [place] [address] 02/10/2025 10:30 AM EDT Appointment [facility] Infusion Clinic 1 [address] [place] [address] 02/11/2025 2:00 PM EDT Appointment [facility] Infusion [facility] 1 [address] [place] [address] 02/12/2025 2:00 PM EDT Appointment [facility] Infusion Clinic 1 [address] [place] [address] 02/13/2025 2:00 PM EDT Appointment [facility] Infusion Clinic 1 [address] [place] [address] 02/14/2025 2:00 PM EDT Appointment [facility] Infusion Clinic 1 [address] [place] [address] 03/10/2025 8:30 AM EDT Clinical Support PAV CC Hematology/BMT and Cellular Therapy Program [address] [place] [address] 03/10/2025 9:00 AM EDT Office Visit PAV Hematology/BMT and Cellular Therapy Program [address] [address] Isaura Wynn, CHIN STRAP CUTTER 800 [facility] [address] [place] [phone] 03/10/2025 11:20 AM EDT Office Visit Pav CC Head, Neck & Respiratory 800 [facility], 2nd [place] [address] Elsa Razo, CHIN STRAP CUTTER 800 [place] [address] documented as of this encounter Procedures Procedure [...] Units, Irradiated (01/17/2025 8:56 AM EDT) Pathologist [facility] Product Code [id number] BLOO D BANK Dispense Status Transfused BLOOD BANK Blood Expiration Date [id number] BLOOD BANK Unit Number [id number] B LOOD BANK Product Blood Type 9500 BLOOD BANK Blood Type O- BLOOD BANK Crossmatch Compatible BLOOD BANK Other Kayli CHIU BLOOD BANK PRODUCT ORDER VIKAS Final Result Performing Organization Address City/State/[facility] Co de Phone Number BLOOD BANK 800 [place] [address], * (ABNORMAL) CBC and differential (01/17/2025 8:03 AM EDT) WBC Count 0.54(LL) 3.70 - 10.30 10*3/uL LAB HEMATOLOGY METHOD 01/17/2025 9:41 AM EDT [facility] RBC Count 2.55(L) 4.60 - 6.10 10*6/uL LAB HEMATOLOGY METHOD 01/17/2025 9:41 AM EDT [facility] HGB 7.6(L) 13.7 - 17.5 g/dL LAB HEMATOLOGY METHOD 01/17/2025 9:41 AM EDT [facility] HCT 21.6(L) 40.0 - 51.0 % LAB HEMATOLOGY METHOD 01/17/2025 9:41 AM EDT [facility] Platelet Count 23(L) 155 - 369 10*3/uL LAB HEMATOLOGY METHOD 01/17/2025 9:41 AM EDT [facility] MCV 85 79 - 98 fL LAB HEMATOLOGY METHOD 01/17/2025 9:41 AM EDT [facility] MCH 29.8 26.0 - 32.0 pg LAB HEMATOLOGY METHOD 01/17/2025 9:41 AM EDT [facility] MCHC 35.2 30.7 - 35.5 g/dL LAB HEMATOLOGY METHOD 01/17/2025 9:41 AM EDT [facility] RDW 14.2 11.5 - 14.5 % LAB HEMATOLOGY METHOD 01/17/2025 9:41 AM EDT [facility] MPV 9.0 8.8 - 12.5 fL LAB HEMATOLOGY METHOD 01/17/2025 9:41 AM EDT [facility] nRBC 0.0 <=0.0 per 100 WBCs LAB HEMATOLOGY METHOD 01/17/2025 9:41 AM EDT [facility] Differential Type Automated LAB HEMATOLOGY METHOD 01/17/2025 9:41 AM EDT [facility] Neutrophils % 7 % LAB HEMATOLOGY METHOD 01/17/2025 9:41 AM EDT [facility] Lymphocytes % 91 % LAB HEMATOLOGY METHOD 01/17/2025 9:41 AM EDT [facility] Monocytes % 2 % LAB HEMATOLOGY METHOD 01/17/2025 9:41 AM EDT [facility] Eosinophils % 0 % LAB HEMATOLOGY METHOD 01/17/2025 9:41 AM EDT [facility] Basophils % 0 % LAB HEMATOLOGY METHOD 01/17/2025 9:41 AM EDT [facility] Immature Granulocytes % 0 % LAB HEMATOLOGY METHOD 01/17/2025 9:41 AM EDT [facility] Neutrophils Absolute 0.04(LL) 1.60 - 6.10 10*3/uL LAB HEMATOLOGY METHOD 01/17/2025 9:41 AM EDT [facility] Lymphocytes Absolute 0.49(L) 1.20 - 3.90 10*3/uL LAB HEMATOLOGY METHOD 01/17/2025 9:41 AM EDT [facility] Monocytes Absolute 0.01(L) 0.30 - 0.90 10*3/uL LAB HEMATOLOGY METHOD 01/17/2025 9:41 AM EDT [facility] Eosinophils Absolute 0.00 0.00 - 0.50 10*3/uL LAB HEMATOLOGY METHOD 01/17/2025 9:41 AM EDT [facility] Basophils Absolute 0.00 0.00 - 0.10 10*3/uL LAB HEMATOLOGY METHOD 01/17/2025 9:41 AM EDT [facility] Immature Granulocytes Absolute 0.00 0.00 - 0.06 10*3/uL LAB HEMATOLOGY METHOD 01/17/2025 9:41 AM EDT [facility] Blood Blood sample taken from central line / Unknown (Port) Long-term Catheter / Unknown 01/17/2025 8:03 AM EDT 01/17/2025 8:07 AM EDT Narrative [facility] - 01/17/2025 9:41 AM EDT Therapeutic decision making should be based on absolute values, rather than percentages. us Virgen Vargas MD LAB BLOOD ORDERABLES Final Re sult [facility] [address] [place] [address] documented in this encounter Visit Diagnoses Diagnosis [...] of this encounter Care Teams High School Principal Relationship Specialty Start Date End Date Zhao Harris MD [address] [place] [address] [place] [address] PCP - General 12/03/20 documented as of this encounter
--- OUTSIDE RECORDS SUMMARY | 2025-01-22 08:13 | XMS_ITS | Encounter Summary ---
Author Organization [facility] Address [address] [place] [address] Care Team Providers Care Aircraft Shipping Checker Name Role Phone Zhao Harris MD Primary Care Provider [phone] Encounter Details Date Type Department Care Team [...] drink first t manav in the morning (EYE-NASCAR DRIVER) to steady your nerves or to [...] Upcoming Encounters Date Type Department Care Team ([facility] st Contact Info) Description 02/02/2025 11:00 AM EDT Appointment [facility] A Interventional Radiology [address] [place] [address] Hussain Calles RN 02/10/2025 8:30 AM EDT Clinical Support [facility] CC Hematology/BMT and Cellular Therapy Program [address] [address] 02/10/2025 9:00 AM EDT Office Visit PAV Hematology/BMT and Cellular Therapy Program [address] [address] Elaina Boss, ARAM [address] [place] [address] [place] [address] 02/10/2025 10:30 AM EDT Appointment [facility] 1 744 [place] [address] 02/11/2025 2:00 PM EDT Appointment [facility] 1 744 [place] [address] 02/12/2025 2:00 PM EDT Appointment [facility] 1 744 [place] [address] 02/13/2025 2:00 PM EDT Appointment [facility] 1 744 [place] [address] 02/14/2025 2:00 PM EDT Appointment [facility] 1 4 [place] [address] 03/10/2025 8:30 AM EDT Clinical Support P[facility] Hematology/BMT and Cellular Therapy Program [address] [address] 03/10/2025 9:00 AM EDT Office Visit P[facility] CC Hematology/BMT and Cellular Therapy Program 750 [facility], [address] [place] [address] Isaura Wynn, TIGHTENING MACHINE OPERATOR 800 [facility]tr [address]st [place] [address] 03/10/2025 11:20 AM EDT Office Visit Pav CC Head, Neck & Respiratory 800 [facility], 2nd [place] [address] Elsa Razo, TIGHTENING MACHINE OPERATOR 800 [place] [address] documented as of this encounter [...] documented as of this encounter Care Teams Aircraft Shipping Checker Relationship Specialty Start Date End Date Zhao Harris MD 1210 [facility] [address] [place] [address] PCP - General 12/03/20 documented as of this encounter
--- OUTSIDE RECORDS SUMMARY | 2025-01-22 08:13 | XMS_ITS | Encounter Summary ---
Author Organization [facility] Address [address] [place] [address] Care Team Providers Care Buying Intern Name Role Phone Zhao Harris MD Primary Care Provider [phone] Encounter Details Date Type Department Care Team [...] first t manav in the morning (EYE-SOCIAL WORKER) to steady your nerves or to [...] ([facility] st Contact Info) Description 02/02/2025 11:00 AM EDT Appointment [facility] A Interventional Radiology [address] [place] [address] Hussain Calles RN 02/10/2025 8:30 AM EDT Clinical Support P[facility] CC Hematology/BMT and Cellular Therapy Program [address] [address] 02/10/2025 9:00 AM EDT Office Visit PAV Hematology/BMT and Cellular Therapy Program [address] [address] Elaina Boss, ARAM [address] [place] [address] [address] [place] [address] 02/10/2025 10:30 AM EDT Appointment [facility] 1 744 [place] [address] 02/11/2025 2:00 PM EDT Appointment [facility] 1 744 [place] [address] 02/12/2025 2:00 PM EDT Appointment [facility] 1 744 [place] [address] 02/13/2025 2:00 PM EDT Appointment [facility] 1 744 [place] [address] 02/14/2025 2:00 PM EDT Appointment [facility] 1 4 [place] [address] 03/10/2025 8:30 AM EDT Clinical Support P[facility] Hematology/BMT and Cellular Therapy Program [address] [address] 03/10/2025 9:00 AM EDT Office Visit PAV CC Hematology/BMT and Cellular Therapy Program 750 [facility], [address] [place] [address] Isaura Wynn, DELIVERY TABLE OPERATOR 800 [facility]tr 1st [place] [address] 03/10/2025 11:20 AM EDT Office Visit Pav CC Head, Neck & Respiratory 800 [facility], 2nd [place] [address] Elsa Razo, DELIVERY TABLE OPERATOR 800 [place] [address] documented as of this encounter [...] documented as of this encounter Care Teams Buying Intern Relationship Specialty Start Date End Date Zhao Harris MD 1210 [facility] [address] [place] [address] PCP - General 12/03/20 documented as of this encounter
--- OUTSIDE RECORDS SUMMARY | 2025-01-22 08:13 | XMS_ITS | Encounter Summary ---
Author Organization [facility] Address [address] [place] [address] Care Team Providers Care Pre K Lead Teacher Name Role Phone Zhao Harris MD Primary Care Provider [phone] Encounter Details Date Type Department Care Team [...] first t manav in the morning (EYE-MANAGER WILLOW) to steady your nerves or to get [...] ([facility] st Contact Info) Description 02/02/2025 11:00 AM EDT Appointment PAV A Interventional Radiology [address] [place] [address] Hussain Calles RN 02/10/2025 8:30 AM EDT Clinical Support P[facility] CC Hematology/BMT and Cellular Therapy Program [address] [address] 02/10/2025 9:00 AM EDT Office Visit PAV Hematology/BMT and Cellular Therapy Program [address] [address] Elaina Boss, ARAM [address] [place] [address] [address] [place] [address] 02/10/2025 10:30 AM EDT Appointment [facility] 1 7[address] [place] [address] 02/11/2025 2:00 PM EDT Appointment [facility] 1 [address] [place] [address] 02/12/2025 2:00 PM EDT Appointment [facility] 1 7[address] [place] [address] 02/13/2025 2:00 PM EDT Appointment [facility] 1 [address] [place] [address] 02/14/2025 2:00 PM EDT Appointment [facility] 1 4 [place] [address] 03/10/2025 8:30 AM EDT Clinical Support PAV Hematology/BMT and Cellular Therapy Program [address] [address] 03/10/2025 9:00 AM EDT Office Visit P[facility] CC Hematology/BMT and Cellular Therapy Program 750 [facility], [address] [place] [place] [address] Isaura Wynn, SYSTEMS MANAGER 800 [facility] [address]st [place] [address] 03/10/2025 11:20 AM EDT Office Visit Pav CC Head, Neck & Respiratory 800 [facility], 2nd [place] [address] Elsa Razo, SYSTEMS MANAGER 800 [place] [address] documented as of this encounter [...] documented as of this encounter Care Teams Pre K Lead Teacher Relationship Specialty Start Date End Date Zhao Harris MD 1210 [facility] [address] [place] [address] PCP - General 12/03/20 documented as of this encounter
--- OUTSIDE RECORDS SUMMARY | 2025-01-22 08:13 | XMS_ITS | Encounter Summary ---
Author Organization [facility] Address [address] [place] [address] Care Team Providers Care Home Energy Consultant Name Role Phone Zhao Harris MD Primary Care Provider [phone] Encounter Details Date Type Department Care Team [...] drink first t manav in the morning (EYE-PHARMACEUTICAL SPECIALTY REPRESENTATIVE) to steady your nerves or to [...] Not at all 01/13/2025 10:14 AM EDT Emily Cecelia W Feeling down, depressed, or hopeless Several days 01/13/2025 10:14 AM EDT Emily Cecelia W Patient Health Questionnaire -2 Score 1 01/13/2025 10:14 AM EDT Emily Cecelia W * Calculated C-SSRS Risk Score (Lifetime/Recent) Answer Date of Assessment Author No Risk Indicated 01/13/2025 10:14 AM EDT Nathaniel vidal Cecelia W * Question Answer Date [...] Appointment PAV A Interventional Radiology [address] [place] [address] Hussain Calles RN 02/10/2025 8:30 AM EDT Clinical Support PAV Hematology/BMT and Cellular Therapy Program [address] [address] 02/10/2025 9:00 AM EDT Office Visit PAV Hematology/BMT and Cellular Therapy Program [address] [address] Elaina Boss, ARAM 800 [facility] [address] [place] [address] 02/10/2025 10:30 AM EDT Appointment [facility] 1 744 [place] [address] 02/11/2025 2:00 PM EDT Appointment [facility] 1 7[address] [place] [address] 02/12/2025 2:00 PM EDT Appointment [facility] 1 [address] [place] [address] 02/13/2025 2:00 PM EDT Appointment [facility] 1 [address] [place] [address] 02/14/2025 2:00 PM EDT Appointment [facility] 1 [address] [place] [address] 03/10/2025 8:30 AM EDT Clinical Support PAV Hematology/BMT and Cellular Therapy Program [address] [place] [address] 03/10/2025 9:00 AM EDT Office Visit PAV Hematology/BMT and Cellular Therapy Program [address] [place] [address] Isaura Wynn, PLAN CHECKER 800 [facility] [address] [place] [phone] 03/10/2025 11:20 AM EDT Office Visit Pav CC Head, Neck & Respiratory 800 [facility], 2nd [place] [address] Elsa Razo, PLAN CHECKER 800 [place] [address] documented as of this encounter Visit Diagnoses [...] documented as of this encounter Care Teams Home Energy Consultant Relationship Specialty Start Date End Date Zhao Harris MD [address] [place] [id number] PCP - General 12/03/20 documented as of this encounter
--- OUTSIDE RECORDS SUMMARY | 2025-01-22 08:13 | XMS_ITS | Encounter Summary ---
Author Organization [facility] Address [address] [place] [address] Care Team Providers Care Traffic Supervisor Name Role Phone Zhao Harris MD Primary Care Provider [phone] Reason for Visit * Reason Comments Med Refill Encounter Details Date Type Department Care Team ([facility] st Contact Info) Description 01/01/2025 Refill [facility] [place] 800 [facility]. [address] [place] [address] Ra Best MD [address] [place] [address] Social History Tobacco Use Types Packs/Day Years [...] drink first t manav in the morning (EYE-WRINGER OPERATOR) to steady your nerves or to [...] AM EDT Appointment PAV A Interventional Radiology [facility] [place] [address] Hussain Calles, BRIAN 02/10/2025 8:30 AM EDT Clinical Support PAV Hematology/BMT and Cellular Therapy Program [address] [place] [address] 02/10/2025 9:00 AM EDT Office Visit PAV Hematology/BMT and Cellular Therapy Program [address] [address] Elaina Boss, ARAM 800 [facility] [address] [place] [address] 02/10/2025 10:30 AM EDT Appointment [facility] 1 7[address] [place] [address] 02/11/2025 2:00 PM EDT Appointment [facility] 1 [address] [place] [address] 02/12/2025 2:00 PM EDT Appointment [facility] 1 [address] [place] [address] 02/13/2025 2:00 PM EDT Appointment [facility] 1 [address] [place] [address] 02/14/2025 2:00 PM EDT Appointment [facility] 1 [address] [place] [address] 03/10/2025 8:30 AM EDT Clinical Support P[facility] CC Hematology/BMT and Cellular Therapy Program [address] [place] [address] 03/10/2025 9:00 AM EDT Office Visit P[facility] CC Hematology/BMT and Cellular Therapy Program [address] [phone] Isaura Wynn, AGENCY CASHIER 800 [facility] [address] [place] [phone] 03/10/2025 11:20 AM EDT Office Visit Pav CC Head, Neck & Respiratory 800 [facility], 2nd [place] [address] Elsa Razo, AGENCY CASHIER 800 [place] [address] documented as of this encounter Visit Diagnoses [...] documented as of this encounter Care Teams Traffic Supervisor Relationship Specialty Start Date End Date Zhao Harris MD [address] [address] PCP - General 12/03/20 documented as of this encounter
--- OUTSIDE RECORDS SUMMARY | 2025-01-22 08:13 | XMS_ITS | Encounter Summary ---
Author Organization [facility] Address [address] [place] [address] Care Team Providers Care Sandal Parts Assembler Name Role Phone Zhao Harris MD Primary Care Provider [phone] Encounter Details Date Type Department Care Team [...] drink first t manav in the morning (EYE-COOLER OPERATOR) to steady your nerves or to [...] Upcoming Encounters Date Type Department Care Team ([facility] st Contact Info) Description 02/02/2025 11:00 AM EDT Appointment PAV A Interventional Radiology [address] [place] [address] Hussain Calles RN 02/10/2025 8:30 AM EDT Clinical Support P[facility] CC Hematology/BMT and Cellular Therapy Program [address] [address] 02/10/2025 9:00 AM EDT Office Visit PAV Hematology/BMT and Cellular Therapy Program [address] [address] Elaina Boss, ARAM [address] [place] [address] [address] [place] [address] 02/10/2025 10:30 AM EDT Appointment [facility] 1 744 [place] [address] 02/11/2025 2:00 PM EDT Appointment [facility] 1 744 [place] [address] 02/12/2025 2:00 PM EDT Appointment [facility] 1 744 [place] [address] 02/13/2025 2:00 PM EDT Appointment [facility] 1 744 [place] [address] 02/14/2025 2:00 PM EDT Appointment [facility] 1 4 [place] [address] 03/10/2025 8:30 AM EDT Clinical Support PAV Hematology/BMT and Cellular Therapy Program [address] [address] 03/10/2025 9:00 AM EDT Office Visit P[facility] CC Hematology/BMT and Cellular Therapy Program 750 [facility], [address] Fl[address] [place] [address] Isaura Wynn, FURNITURE SPRAYER 800 [facility] 1st [place] [address] 03/10/2025 11:20 AM EDT Office Visit Pav CC Head, Neck & Respiratory 800 [facility], 2nd [place] [address] Elsa Razo, FURNITURE SPRAYER 800 [place] [address] documented as of this encounter [...] documented as of this encounter Care Teams Sandal Parts Assembler Relationship Specialty Start Date End Date Zhao Harris MD 1210 [facility] [address] [place] [address] PCP - General 12/03/20 documented as of this encounter
--- OUTSIDE RECORDS SUMMARY | 2025-01-22 08:14 | XMS_ITS | Encounter Summary ---
Author Organization [facility] Address [address] [place] [address] Care Team Providers Care Card Hanger Name Role Phone Zhao Harris MD Primary Care Provider [phone] Encounter Details Date Type Department Care Team [...] drink first t manav in the morning (EYE-ENTERPRISE MOBILITY ARCHITECT) to steady your nerves or to [...] Upcoming Encounters Date Type Department Care Team ([facility] st Contact Info) Description 02/02/2025 11:00 AM EDT Appointment PAV A Interventional Radiology [address] [place] [address] Hussain Calles RN 02/10/2025 8:30 AM EDT Clinical Support P[facility] CC Hematology/BMT and Cellular Therapy Program [address] [address] 02/10/2025 9:00 AM EDT Office Visit PAV Hematology/BMT and Cellular Therapy Program [address] [address] Elaina Boss, ARAM [address] [place] [address] [address] [place] [address] 02/10/2025 10:30 AM EDT Appointment [facility] 1 [address]44 [place] [address] 02/11/2025 2:00 PM EDT Appointment [facility] 1 [address] [place] [address] 02/12/2025 2:00 PM EDT Appointment [facility] 1 [address] [place] [address] 02/13/2025 2:00 PM EDT Appointment [facility] 1 [address] [place] [address] 02/14/2025 2:00 PM EDT Appointment [facility] 1 4 [place] [address] 03/10/2025 8:30 AM EDT Clinical Support PAV Hematology/BMT and Cellular Therapy Program [address] [address] 03/10/2025 9:00 AM EDT Office Visit PAV CC Hematology/BMT and Cellular Therapy Program 750 [facility], 1[address] [place] [place] [address] Isaura Wynn, PIPE STRAIGHTENER 800 [facility] 1st [place] [address] 03/10/2025 11:20 AM EDT Office Visit Pav CC Head, Neck & Respiratory 800 [facility], 2nd [place] [address] Elsa Razo, PIPE STRAIGHTENER 800 [place] [address] documented as of this encounter [...] as of this encounter Care Teams Card Hanger Relationship Specialty Start Date End Date Zhao Harris MD 1210 [facility] [address] [place] [address] PCP - General 12/03/20 documented as of this encounter
--- OUTSIDE RECORDS SUMMARY | 2025-01-22 08:14 | XMS_ITS | Encounter Summary ---
Author Organization [facility] Address [address] [place] [address] Care Team Providers Care Floorworker Distributor Name Role Phone Zhao Harris MD Primary Care Provider [phone] Encounter Details Date Type Department Care Team [...] drink first t manav in the morning (EYE-ROLLER PICKER) to steady your nerves or to [...] Upcoming Encounters Date Type Department Care Team ([facility] st Contact Info) Description 02/02/2025 11:00 AM EDT Appointment PAV A Interventional Radiology [address] [place] [address] Hussain Calles RN 02/10/2025 8:30 AM EDT Clinical Support PAV CC Hematology/BMT and Cellular Therapy Program [address] [address] 02/10/2025 9:00 AM EDT Office Visit PAV Hematology/BMT and Cellular Therapy Program [address] [address] Elaina Boss, ARAM [address] [place] [address] [address] [place] [address] 02/10/2025 10:30 AM EDT Appointment [facility] Infusion [facility] 1 744 [place] [address] 02/11/2025 2:00 PM EDT Appointment [facility] Infusion [facility] 1 [address] [place] [address] 02/12/2025 2:00 PM EDT Appointment [facility]fusion [facility] 1 744 [place] [address] 02/13/2025 2:00 PM EDT Appointment [facility] 1 [address] [place] [address] 02/14/2025 2:00 PM EDT Appointment [facility] Infusion [facility] 1 4 [place] [address] 03/10/2025 8:30 AM EDT Clinical Support PAV Hematology/BMT and Cellular Therapy Program [address] [address] 03/10/2025 9:00 AM EDT Office Visit PAV CC Hematology/BMT and Cellular Therapy Program 750 [facility], [address] [place] [place] [address] Isaura Wynn, ANALYTICAL LAB ANALYST 800 [facility]tr 1st [place] [address] 03/10/2025 11:20 AM EDT Office Visit Pav CC Head, Neck & Respiratory 800 [facility], 2nd [place] [address] Elsa Razo, ANALYTICAL LAB ANALYST 800 [place] [address] documented as of this encounter [...] documented as of this encounter Care Teams Floorworker Distributor Relationship Specialty Start Date End Date Zhao Harris MD 1210 [facility] [address] [place] [address] PCP - General 12/03/20 documented as of this encounter
--- OUTSIDE RECORDS SUMMARY | 2025-01-22 08:14 | XMS_ITS | Encounter Summary ---
Author Organization [facility] Address [address] [place] [address] Care Team Providers Care Shredding Specialist Name Role Phone Zhao Harris MD Primary Care Provider [phone] Encounter Details Date Type Department Care Team [...] drink first t manav in the morning (EYE-COMBINATION TECHNICIAN) to steady your nerves or to [...] Upcoming Encounters Date Type Department Care Team ([facility] st Contact Info) Description 02/02/2025 11:00 AM EDT Appointment PAV A Interventional Radiology [address] [place] [address] Hussain Calles RN 02/10/2025 8:30 AM EDT Clinical Support PAV CC Hematology/BMT and Cellular Therapy Program [address] [address] 02/10/2025 9:00 AM EDT Office Visit PAV Hematology/BMT and Cellular Therapy Program [address] [address] Elaina Boss, ARAM [address] [place] [address] Cancer [address] [place] [address] 02/10/2025 10:30 AM EDT Appointment [facility] Infusion [facility] 1 744 [place] [address] 02/11/2025 2:00 PM EDT Appointment [facility] Infusion [facility] 1 [address] [place] [address] 02/12/2025 2:00 PM EDT Appointment [facility] Infusion [facility] 1 [address] [place] [address] 02/13/2025 2:00 PM EDT Appointment [facility] Infusion [facility] 1 [address] [place] [address] 02/14/2025 2:00 PM EDT Appointment [facility] Infusion [facility] 1 4 [place] [address] 03/10/2025 8:30 AM EDT Clinical Support PAV Hematology/BMT and Cellular Therapy Program [address] [address] 03/10/2025 9:00 AM EDT Office Visit PAV CC Hematology/BMT and Cellular Therapy Program 750 [facility], [address] [place] [place] [address] Isaura Wynn, TEST ADMINISTRATOR 800 [facility]tr 1st [place] [address] 03/10/2025 11:20 AM EDT Office Visit Pav CC Head, Neck & Respiratory 800 [facility], 2nd [place] [address] Elsa Razo, TEST ADMINISTRATOR 800 [place] [address] documented as of this encounter [...] documented as of this encounter Care Teams Shredding Specialist Relationship Specialty Start Date End Date Zhao Harris MD 1210 [facility] [address] [address] PCP - General 12/03/20 documented as of this encounter
--- OUTSIDE RECORDS SUMMARY | 2025-01-22 08:14 | XMS_ITS | Encounter Summary ---
Author Organization [facility] Address [address] [place] [address] Care Team Providers Care Tray Filler Name Role Phone Zhao Harris MD Primary Care Provider [phone] Encounter Details Date Type Department Care Team ([facility] st Contact Info) Description 12/23/2024 Orders Only PAV CC Hematology/BMT and Cellular Therapy Program [address] [place] [address] [place] [address] Adam Conway RN [facility] HEMATOLOGY [...] drink first t manav in the morning (EYE-PRIOR AUTHORIZATION TECHNICIAN) to steady your nerves or to [...] Appointment PAV A Interventional Radiology [address] [place] [address] Hussain Calles RN 02/10/2025 8:30 AM EDT Clinical Support PAV Hematology/BMT and Cellular Therapy Program [address] [place] [address] 02/10/2025 9:00 AM EDT Office Visit PAV Hematology/BMT and Cellular Therapy Program [address] [address] Elaina Boss, PA 800 [facility] [address] [place] [address] 02/10/2025 10:30 AM EDT Appointment [facility] Infusion [facility] 1 744 [place] [address] 02/11/2025 2:00 PM EDT Appointment [facility] Infusion [facility] 1 [address] [place] [address] 02/12/2025 2:00 PM EDT Appointment [facility] Infusion [facility] 1 [address] [place] [address] 02/13/2025 2:00 PM EDT Appointment [facility] Infusion [facility] 1 [address] [place] [address] 02/14/2025 2:00 PM EDT Appointment [facility] Infusion [facility] 1 [address] [place] [address] 03/10/2025 8:30 AM EDT Clinical Support PAV CC Hematology/BMT and Cellular Therapy Program 750 [facility] [place] [place] [address] 03/10/2025 9:00 AM EDT Office Visit PAV CC Hematology/BMT and Cellular Therapy Program 750 [facility] [place] [place] [address] Isaura Wynn, SPRAY UNIT FEEDER 800 [facility] 1st [place] [address] 03/10/2025 11:20 AM EDT Office Visit Pav CC Head, Neck & Respiratory 800 [facility], 2nd [place] [address] Elsa Razo, SPRAY UNIT FEEDER 800 [place] [address] Scheduled Orders Name Type Priority Associated Diagnoses [...] documented as of this encounter Care Teams Tray Filler Relationship Specialty Start Date End Date Zhao Harris MD [facility] [address] [address] PCP - General 12/03/20 documented as of this encounter
--- OUTSIDE RECORDS SUMMARY | 2025-01-22 08:14 | XMS_ITS | Encounter Summary ---
Author Organization [facility] Address [address] [place] [address] Care Team Providers Care Electrical Products Sales Engineer Name Role Phone Zhao Harris MD Primary Care Provider [phone] Encounter Details Date Type Department Care Team [...] drink first t manav in the morning (EYE-METAL TRADES INSTRUCTOR) to steady your nerves or to [...] ([facility] st Contact Info) Description 02/02/2025 11:00 AM EDT Appointment PAV A Interventional Radiology [address] [place] [address] Hussain Calles RN 02/10/2025 8:30 AM EDT Clinical Support PAV CC Hematology/BMT and Cellular Therapy Program [address] [address] 02/10/2025 9:00 AM EDT Office Visit PAV Hematology/BMT and Cellular Therapy Program [address] [address] Elaina Boss, ARAM [address] [place] [address] Cancer [address] [place] [address] 02/10/2025 10:30 AM EDT Appointment [facility] Infusion Clinic 1 [address]44 [place] [address] 02/11/2025 2:00 PM EDT Appointment [facility] Infusion [facility] 1 [address] [place] [address] 02/12/2025 2:00 PM EDT Appointment [facility] Infusion [facility] 1 [address] [place] [address] 02/13/2025 2:00 PM EDT Appointment [facility] Infusion [facility] 1 [address] [place] [address] 02/14/2025 2:00 PM EDT Appointment [facility] Infusion [facility] 1 4 [place] [address] 03/10/2025 8:30 AM EDT Clinical Support PAV Hematology/BMT and Cellular Therapy Program [address] [address] 03/10/2025 9:00 AM EDT Office Visit PAV CC Hematology/BMT and Cellular Therapy Program 750 [facility], 1st [place] [address] Isaura Wynn, CUTTING MACHINE FIXER 800 [facility] Cancer Ctr 1st [place] [address] 03/10/2025 11:20 AM EDT Office Visit Pav CC Head, Neck & Respiratory 800 [facility], 2nd [place] [address] Elsa Razo, CUTTING MACHINE FIXER 800 [place] [address] documented as of this encounter [...] as of this encounter Care Teams Electrical Products Sales Engineer Relationship Specialty Start Date End Date Zhao Harris MD 1210 [facility] [address] [place] [address] PCP - General 12/03/20 documented as of this encounter
--- OUTSIDE RECORDS SUMMARY | 2025-01-22 08:14 | XMS_ITS | Encounter Summary ---
Author Organization [facility] Address [address] [place] [address] Care Team Providers Care Steward/Stewardess Second Name Role Phone Zhao Harris MD Primary Care Provider [phone] Encounter Details Date Type Department Care Team ([facility] st Contact Info) Description 12/09/2024 Telephone PAV CC Hematology/BMT and Cellular Therapy Program [address] [place] [address] [place] [address] Essie Ricks RN [facility] HEMATOLOGY PRO[facility]INIC Social History [...] drink first t manav in the morning (EYE-CALCULATION REVIEWER) to steady your nerves or to get [...] Miscellaneous Notes * Clinician Note - Mague Trevino, RN - 12/09/2024 1:06 PM EDT Called and reviewed scripts with pharmacy. documented in this encounter Plan of Treatment Upcoming Encounters Date Type Department Care Team (Late st Contact Info) Description 02/02/2025 11:00 AM EDT Appointment PAV A Interventional Radiology [address] [place] [address] Hussain Calles RN 02/10/2025 8:30 AM EDT Clinical Support PAV Hematology/BMT and Cellular Therapy Program [address] [address] 02/10/2025 9:00 AM EDT Office Visit PAV Hematology/BMT and Cellular Therapy Program [address] [address] Elaina Boss, ARAM 800 [facility] Cancer Ctr [address] [place] [address] 02/10/2025 10:30 AM EDT Appointment [facility] Infusion Clinic 1 7[address] [place] [address] 02/11/2025 2:00 PM EDT Appointment [facility] Infusion [facility] 1 [address] [place] [address] 02/12/2025 2:00 PM EDT Appointment [facility] Infusion [facility] 1 [address] [place] [address] 02/13/2025 2:00 PM EDT Appointment [facility] Infusion [facility] 1 [address] [place] [address] 02/14/2025 2:00 PM EDT Appointment [facility] Infusion [facility] 1 [address] [place] [address] 03/10/2025 8:30 AM EDT Clinical Support PAV CC Hematology/BMT and Cellular Therapy Program 750 [facility] [place] [address] 03/10/2025 9:00 AM EDT Office Visit PAV CC Hematology/BMT and Cellular Therapy Program [address] [address] Isaura Wynn, DIMENSION STONE QUARRY SUPERVISOR 800 [facility] Cancer Ctr [address]st [place] [address] 03/10/2025 11:20 AM EDT Office Visit Pav CC Head, Neck & Respiratory 800 [facility], 2nd [place] [address] Elsa Razo, DIMENSION STONE QUARRY SUPERVISOR 800 [place] [address] documented as of this encounter Visit Diagnoses [...] documented as of this encounter Care Teams Steward/Stewardess Second Relationship Specialty Start Date End Date Zhao Harris MD 1210 [facility] [address] [address] PCP - General 12/03/20 documented as of this encounter
--- OUTSIDE RECORDS SUMMARY | 2025-01-22 08:14 | XMS_ITS ---
Author Organization [facility] Address [address] [place] [address] Care Team Providers Care Glove Boarder Name Role Phone Zhao Harris MD Primary Care Provider Active Problems Problem Noted Date Diagnosed Date [...] (CMS/HCC) Treatment Medications Current Day (Day 1 0, Cycle 1 - Planned for 01/22/2025) Next Day (Day 12, Cycle 1 - Planned for 01/24/2025) decitabine (Dacogen)decitabi ne (Dacogen) IVPBvenetoclax (Venclexta) No medications scheduled. No medications scheduled. HEM/BMT Blood Administration for Outpatient* Plan Start Date:10/22/2024 Plan Provider:Kayli Ospina PA Linked Problems Myelodysplasia (myelodysplas tic syndrome) ([facility]/HCC)Thrombocytopenia (CMS/HCC) Treatment Medications No medications scheduled. Past [...]
--- OUTSIDE RECORDS SUMMARY | 2025-01-22 08:14 | XMS_ITS | Encounter Summary ---
Author Organization [facility] Address [address] [place] [address] Care Team Providers Care Missileman Name Role Phone Zhao Harris MD Primary Care Provider [phone] Encounter Details Date Type Department Care Team (Late st Contact Info) Description 12/04/2024 Telephone [facility] Interventional Radiology [address] [place] [address] Martha William Social History Tobacco [...] drink first t manav in the morning (EYE-INSIDE METER TESTER) to steady your nerves or to [...] they need to bandage it. Requesting CB@ [phone] documented in this encounter Plan of Treatment Upcoming Encounters Date Type Department Care Team (Late st Contact Info) Description 02/02/2025 11:00 AM EDT Appointment PAV A Interventional Radiology [address] [place] [address] Hussain Calles RN 02/10/2025 8:30 AM EDT Clinical Support PAV CC Hematology/BMT and Cellular Therapy Program [address] [address] 02/10/2025 9:00 AM EDT Office Visit PAV CC Hematology/BMT and Cellular Therapy Program [address] [address] Elaina Boss, PA 800 [facility]tr [address] [place] [address] 02/10/2025 10:30 AM EDT Appointment [facility] Infusion Clinic 1 744 [place] [address] 02/11/2025 2:00 PM EDT Appointment [facility] Infusion Clinic 1 [address] [place] [address] 02/12/2025 2:00 PM EDT Appointment [facility] Infusion Clinic 1 [address] [place] [address] 02/13/2025 2:00 PM EDT Appointment [facility] Infusion [facility] 1 [address] [place] [address] 02/14/2025 2:00 PM EDT Appointment [facility] Infusion [facility] 1 [address] [place] [address] 03/10/2025 8:30 AM EDT Clinical Support PAV CC Hematology/BMT and Cellular Therapy Program [address] [address] 03/10/2025 9:00 AM EDT Office Visit PAV CC Hematology/BMT and Cellular Therapy Program [address] [address] Isaura Wynn, SALES REVIEW CLERK 800 [facility] 1st [place] [address] 03/10/2025 11:20 AM EDT Office Visit Pav CC Head, Neck & Respiratory 800 [facility], 2nd [place] [address] Elsa Razo, SALES REVIEW CLERK 800 [place] [address] documented as of this encounter Visit Diagnoses [...] documented as of this encounter Care Teams Missileman Relationship Specialty Start Date End Date Zhao Harris MD 1210 [facility] [address], [place] [address] PCP - General 12/03/20 documented as of this encounter
--- OUTSIDE RECORDS SUMMARY | 2025-01-22 08:14 | XMS_ITS | Encounter Summary ---
Author Organization [facility] Address [address] [place] [address] Care Team Providers Care Mammography Tech Name Role Phone Zhao Harris MD Primary Care Provider [phone] Encounter Details Date Type Department Care Team [...] drink first t manav in the morning (EYE-TOBACCO SORTER) to steady your nerves or to [...] Appointment PAV A Interventional Radiology [address] [place] [address] Hussain Calles RN 02/10/2025 8:30 AM EDT Clinical Support PAV CC Hematology/BMT and Cellular Therapy Program [address] [address] 02/10/2025 9:00 AM EDT Office Visit PAV Hematology/BMT and Cellular Therapy Program [address] [address] Elaina Boss, ARAM [address] [place] [address] Cancer [address] [place] [address] 02/10/2025 10:30 AM EDT Appointment [facility] Infusion Clinic 1 [address] [place] [address] 02/11/2025 2:00 PM EDT Appointment [facility] Infusion [facility] 1 [address] [place] [address] 02/12/2025 2:00 PM EDT Appointment [facility] Infusion [facility] 1 [address] [place] [address] 02/13/2025 2:00 PM EDT Appointment [facility] Infusion [facility] 1 [address] [place] [address] 02/14/2025 2:00 PM EDT Appointment [facility] Infusion [facility] 1 4 [place] [address] 03/10/2025 8:30 AM EDT Clinical Support PAV Hematology/BMT and Cellular Therapy Program [address] [address] 03/10/2025 9:00 AM EDT Office Visit PAV CC Hematology/BMT and Cellular Therapy Program 750 [facility], [address] [place] [place] [address] Isaura Wynn, REWRITER 800 [facility] Ctr 1st [place] [address] 03/10/2025 11:20 AM EDT Office Visit Pav CC Head, Neck & Respiratory 800 [facility], 2nd [place] [address] Elsa Razo, REWRITER 800 [place] [address] documented as of this encounter [...] documented as of this encounter Care Teams Mammography Tech Relationship Specialty Start Date End Date Zhao Harris MD 1210 [facility] [address] [address] PCP - General 12/03/20 documented as of this encounter
--- OUTSIDE RECORDS SUMMARY | 2025-01-22 08:14 | XMS_ITS | Encounter Summary ---
Author Organization [facility] Address [address] [place] [address] Care Team Providers Care Soda Jerker Name Role Phone Zhao Harris MD Primary Care Provider [phone] Encounter Details Date Type Department Care Team [...] drink first t manav in the morning (EYE-WORK STATION SUPPORT SPECIALIST) to steady your nerves or [...] Appointment PAV A Interventional Radiology [address] [place] [address] Hussain Calles, RN 02/10/2025 8:30 AM EDT Clinical Support PAV Hematology/BMT and Cellular Therapy Program [address] [address] 02/10/2025 9:00 AM EDT Office Visit PAV Hematology/BMT and Cellular Therapy Program [address] [address] Elaina Boss, ARAM 800 [facility] Ctr [address] [place] [address] 02/10/2025 10:30 AM EDT Appointment [facility] Infusion Clinic 1 744 [place] [address] 02/11/2025 2:00 PM EDT Appointment [facility] Infusion [facility] 1 [address] [place] [address] 02/12/2025 2:00 PM EDT Appointment [facility] Infusion [facility] 1 [address] [place] [address] 02/13/2025 2:00 PM EDT Appointment [facility] Infusion [facility] 1 [address] [place] [address] 02/14/2025 2:00 PM EDT Appointment [facility] Infusion [facility] 1 [address] [place] [address] 03/10/2025 8:30 AM EDT Clinical Support PAV CC Hematology/BMT and Cellular Therapy Program [address] [place] [address] 03/10/2025 9:00 AM EDT Office Visit PAV CC Hematology/BMT and Cellular Therapy Program [address] [address] Isaura Wynn, MERCHANDISE SUPERVISOR 800 [facility] Ctr [address]st [place] [address] 03/10/2025 11:20 AM EDT Office Visit Pav CC Head, Neck & Respiratory 800 [facility], 2nd [place] [address] Elsa Razo, MERCHANDISE SUPERVISOR 800 [place] [address] documented as of this encounter Visit Diagnoses [...] documented as of this encounter Care Teams Soda Jerker Relationship Specialty Start Date End Date Zhao Harris MD [address] [address] PCP - General 12/03/20 documented as of this encounter
--- OUTSIDE RECORDS SUMMARY | 2025-01-22 08:15 | XMS_ITS | Encounter Summary ---
Author Organization [employer] ([place], [place], [place], [place]) Address [address] [place] [address] Care Team Providers Care Voltage Tester Name Role Phone Unavailable Primary Care Provider Unavailabl e Encounter Details Date Type Department Care Team (Late st Contact Info) Description 07/10/2019 Transcribed Document [facility] Family Medicine [address] [place] [address] ProviderBrigida MD [address] [place] [address] Social History Tobacco Use Types [...] Brigida Vega MD - 07/10/2019 9:20 AM [place] [address] HUGO AGUILAR JR :1955 Visit Time:07/10/2019 What to do next Your Diagnosis Chondromalacia, right knee, Chondromalacia, right knee Instructions From Your Care Team Weight bearing as tolerated, use cane or crutches if needed. Keep dressing clean and dry for at least 2 days. Resume all home medications. Usual diet as tolerated. Polo 10/325mg 1 tablet every 6 hours as needed for pain- next dose due @ 3:30pm today 07/10/19. Follow-Up Appointments Follow Up with SURY SHARMA MD-ORT When 07/21/2019 02:00 PM EST Where: [address] [facility] [address]ND [place] [address]- Medications What How Much When Instructions Next [...] activities are safe for you. ??? Take tyia-ubm-rohrrum and prescription medicines only as told by [...] 12/28/2017 Document Revised: 03/07/2018 Document Reviewed: 12/28/2017 [employer] Patient Education ?? 2019 [employer] General Anesthesia, Adult, Care After This [...] activities are safe for you. ??? Take lhbp-nox-uhqegvj and prescription medicines only as told by [...] 10/15/2001 Document Revised: 02/22/2018 Document Reviewed: 02/22/2018 [employer] Patient Education ?? 2019 [employer] Knee Arthroscopy, Care After Refer to [...] activities are safe for you. ??? Perform wmibt-nz-xqnvue exercises only as directed by your health [...] 01/26/2006 Document Revised: 12/08/2016 Document Reviewed: 07/05/2015 [employer] Patient Education ?? 2018 [employer]. acetaminophen and hydrocodone (a SEET a MIN oh fen and laurie droe KOE done) Hycet, Lorcet, Polo, Verdrocet, Vicodin, Xodol, Zamicet What is the [...] may report side effects to FDA at 0-165-YEK-4472. What other drugs will affect acetaminophen and [...] affect acetaminophen and hydrocodone, including prescription and drhg-ytg-aontwgc medicines, vitamins, and herbal products. Not all [...] to ensure that the information provided by [employer]. ('[employer]') is accurate, up-to-date, and complete, but no guarantee is made to that effect. Drug information contained herein may be time sensitive. [employer] information has been compiled for use by healthcare practitioners and consumers in the [place] and therefore [employer] does not warrant that uses outside of the [place] are appropriate, unless specifically indicated otherwise. [employer] drug information does not endorse drugs, diagnose patients or recommend therapy. [employer] drug information is an informational resource designed [...] effective or appropriate for any given patient. [facility] does not assume any responsibility for any aspect of healthcare administered with the aid of information [facility] provides. The information contained herein is not intended to cover all possible uses, directions, precautions, warnings, drug interactions, allergic reactions, or adverse effects. If you have questions about the drugs you are taking, check with your doctor, nurse or pharmacist. Copyright 2889-5449 [employer]. Version: 15.02. Revision Date: 05/27/2018. Emergency Awareness [...] Assistance with quitting is available by contacting 5-125-TGUG-NOW. This is a free resource providing counseling, [...] was given the opportunity to ask questions. Patient/Planning Coordinator Name: Patient/Planning Coordinator Signature: Relationship to Patient: Clinician/Hospital Planning Coordinator Signature: Date: documented in this encounter Plan of Treatment Not on file documented as of this encounter Visit Diagnoses Not on filedocumented in this encounter
--- OUTSIDE RECORDS SUMMARY | 2025-01-22 08:15 | XMS_ITS | Encounter Summary ---
Author Organization [facility] Address [address] 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) Virgen Vargas MD [address] [address] Phone: tel: fax:[phone] [facility] Multidisciplinary Oncology Clinic [address] [place] [address] Phone: tel: fax: Referral ID Status Reason Start Date Expiration Date V isits Requested Visits Authorized [id number] Closed Specialty Services Required 12/11/2024 06/12/2026 1 1 Scheduling Instructions AML, evaluation for clinical trials * Consultation (Routine) - Closed Specialty Diagnoses / Procedures Referred By Justice mcgee Referred To Contact Medical Oncology Diagnoses 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) Virgen Vargas MD [address] [address] Phone: tel: fax: Referral ID Status Reason Start Date Expiration Date V isits Requested Visits Authorized [id number] Closed Specialty Services Required 12/11/2024 06/12/2026 1 1 Scheduling Instructions AML evaluation for clinical trials Encounter Details Date Type Department Care Team ([facility] Contact Info) Description 12/11/2024 Orders Only PAV CC Hematology/BMT and Cellular Therapy Program 750 [facility], [address] [place] [address] Shahla Mejia RN [facility] AMB SERV ADMIN Acute myeloid leukemia [...] Have you had a drink first t manva in the morning (EYE-VENDING MACHINE TECHNICIAN) to steady your nerves or to [...] Upcoming Encounters Date Type Department Care Team ([facility] Contact Info) Description 02/02/2025 11:00 AM EDT Appointment PAV A Interventional Radiology [address] [place] [address] Hussain Calles, BRIAN 02/10/2025 8:30 AM EDT Clinical Support PAV Hematology/BMT and Cellular Therapy Program [address] [address] 02/10/2025 9:00 AM EDT Office Visit PAV Hematology/BMT and Cellular Therapy Program [address] [address] Elaina Boss, PA 800 [facility] [address] [place] [address] 02/10/2025 10:30 AM EDT Appointment [facility] Infusion [facility] 1 [address] [place] [address] 02/11/2025 2:00 PM EDT Appointment [facility]fusion [facility] 1 [address] [place] [address] 02/12/2025 2:00 PM EDT Appointment [facility] Infusion [facility] 1 [address] [place] [address] 02/13/2025 2:00 PM EDT Appointment [facility]fusion [facility] 1 [address] [place] [address] 02/14/2025 2:00 PM EDT Appointment [facility] Infusion [facility] 1 [address] [place] [address] 03/10/2025 8:30 AM EDT Clinical Support PAV Hematology/BMT and Cellular Therapy Program [address] [address] 03/10/2025 9:00 AM EDT Office Visit PAV Hematology/BMT and Cellular Therapy Program [address] [address] Isaura Wynn, WATER LEAK REPAIRER 800 [facility] [address] [place] [address] 03/10/2025 11:20 AM EDT Office Visit Pav CC Head, Neck & Respiratory 800 [facility], 2nd [place] [address] Elsa Razo, WATER LEAK REPAIRER [address] [place] [address] Scheduled Referrals Name Type Priority Associated Diagnoses [...] documented as of this encounter Care Teams Training Executive Relationship Specialty Start Date End Date Zhao Harris MD [address] [place] [address] PCP - General 12/03/20 documented as of this encounter
--- OUTSIDE RECORDS SUMMARY | 2025-01-22 08:15 | XMS_ITS | Encounter Summary ---
Author Organization [facility] Address [address] [place] [address] Care Team Providers Care Lapel Padder Blindstitch Name Role Phone Zhao Harris MD Primary Care Provider [phone] Encounter Details Date Type Department Care Team ([facility] st Contact Info) Description 11/05/2024 Results Follow-Up Pav CC Head, Neck & Respiratory 800 [facility], 2nd [place] [address] Elsa Razo, WIRE STITCHER MACHINE 800 [place] [address] Social History Tobacco Use Types Packs/Day Years [...] first t manav in the morning (EYE-INSPECTOR TOOL) to steady your nerves or to get [...] Appointment PAV A Interventional Radiology [address] [place] [address] Hussain Calles, BRIAN 02/10/2025 8:30 AM EDT Clinical Support PAV Hematology/BMT and Cellular Therapy Program [address] [address] 02/10/2025 9:00 AM EDT Office Visit PAV Hematology/BMT and Cellular Therapy Program [address] [address] Elaina Boss PA 800 [facility] [address] [place] [address] 02/10/2025 10:30 AM EDT Appointment [facility] Infusion [facility] 1 [address] [place] [address] 02/11/2025 2:00 PM EDT Appointment [facility] Infusion [facility] 1 [address] [place] [address] 02/12/2025 2:00 PM EDT Appointment [facility] Infusion [facility] 1 [address] [place] [address] 02/13/2025 2:00 PM EDT Appointment [facility] Infusion [facility] 1 [address] [place] [address] 02/14/2025 2:00 PM EDT Appointment [facility] Infusion [facility] 1 [address] [place] [address] 03/10/2025 8:30 AM EDT Clinical Support PAV CC Hematology/BMT and Cellular Therapy Program [address] [address] 03/10/2025 9:00 AM EDT Office Visit PAV Hematology/BMT and Cellular Therapy Program [address] [address] Isaura Wynn, WIRE STITCHER MACHINE 800 [facility] [address] [place] [address] 03/10/2025 11:20 AM EDT Office Visit Pav CC Head, Neck & Respiratory 800 [facility], 2nd [place] [address] Elsa Razo, WIRE STITCHER MACHINE 800 [place] [address] documented as of this encounter Visit Diagnoses [...] documented as of this encounter Care Teams Lapel Padder Blindstitch Relationship Specialty Start Date End Date Zhao Harris MD [address] [place] [id number] PCP - General 12/03/20 documented as of this encounter
--- OUTSIDE RECORDS SUMMARY | 2025-01-22 08:15 | XMS_ITS | Encounter Summary ---
Author Organization [facility] Address [address] [place] [address] Care Team Providers Care Corporate Communications Intern Name Role Phone Zhao Harris MD Primary Care Provider [phone] Encounter Details Date Type Department Care Team ([facility] st Contact Info) Description 01/20/2025 Telephone PAV CC Hematology/BMT and Cellular Therapy Program [address] [address] Elaina Boss, ARAM 800 [facility] 1st [place] [address] Social History Tobacco Use Types Packs/Day Years [...] drink first t manav in the morning (EYE-TEST DESK SUPERVISOR) to steady your nerves or to [...] Telephone Encounter - Adam Conway, RN - 01/20/2025 9:57 AM EDT RN spoke with Eliana and discussed order. She verbalized understanding. documented in this encounter Plan of Treatment Upcoming Encounters Date Type Department Care Team ([facility] Contact Info) Description 02/02/2025 11:00 AM EDT Appointment PAV A Interventional Radiology [address] [place] [address] Hussain Calles, RN 02/10/2025 8:30 AM EDT Clinical Support PAV Hematology/BMT and Cellular Therapy Program [address] [address] 02/10/2025 9:00 AM EDT Office Visit PAV Hematology/BMT and Cellular Therapy Program [address] [address] Elaina Boss, ARAM 800 [facility] [address] [place] [address] 02/10/2025 10:30 AM EDT Appointment [facility] Infusion [facility] 1 [address] [place] [address] 02/11/2025 2:00 PM EDT Appointment [facility] Infusion [facility] 1 [address] [place] [address] 02/12/2025 2:00 PM EDT Appointment [facility] Infusion [facility] 1 [address] [place] [address] 02/13/2025 2:00 PM EDT Appointment [facility] Infusion [facility] 1 [address] [place] [address] 02/14/2025 2:00 PM EDT Appointment [facility] Infusion [facility] 1 [address] [place] [address] 03/10/2025 8:30 AM EDT Clinical Support PAV CC Hematology/BMT and Cellular Therapy Program [address] [address] 03/10/2025 9:00 AM EDT Office Visit PAV Hematology/BMT and Cellular Therapy Program [address] [address] Isaura Wynn, GRANULAR OPERATOR 800 [facility] [address] [place] [phone] 03/10/2025 11:20 AM EDT Office Visit Pav CC Head, Neck & Respiratory 800 [facility], 2nd [place] [address] Elsa Razo, GRANULAR OPERATOR 800 [place] [address] documented as of this encounter Visit Diagnoses [...] documented as of this encounter Care Teams Corporate Communications Intern Relationship Specialty Start Date End Date Zhao Harris MD 1210 [facility] [address], [place] [address] PCP - General 12/03/20 documented as of this encounter
--- OUTSIDE RECORDS SUMMARY | 2025-01-22 08:15 | XMS_ITS | Referral Summary ---
Author Organization [employer] ([place], [place], [place], [place]) Address [address] [place] [address] Care Team Providers Care Physician Credentialing Specialist Name Role Phone Unavailable Primary Care [...]
--- OUTSIDE RECORDS SUMMARY | 2025-01-22 08:15 | XMS_ITS | Encounter Summary ---
Author Organization [facility] Address [address] [place] [address] Care Team Providers Care Hospitality Recruiter Name Role Phone Zhao Harris MD Primary Care Provider [phone] Encounter Details Date Type Department Care Team [...] drink first t manav in the morning (EYE-RIG MECHANIC) to steady your nerves or to [...] Upcoming Encounters Date Type Department Care Team ([facility] st Contact Info) Description 02/02/2025 11:00 AM EDT Appointment PAV A Interventional Radiology [address] [place] [address] Hussain Calles RN 02/10/2025 8:30 AM EDT Clinical Support PAV CC Hematology/BMT and Cellular Therapy Program [address] [address] 02/10/2025 9:00 AM EDT Office Visit PAV Hematology/BMT and Cellular Therapy Program [address] [address] Elaina Boss, ARAM [address] [place] [address] [place] [address] 02/10/2025 10:30 AM EDT Appointment [facility] Infusion Clinic 1 [address] [place] [address] 02/11/2025 2:00 PM EDT Appointment [facility] Infusion [facility] 1 [address] [place] [address] 02/12/2025 2:00 PM EDT Appointment [facility] Infusion [facility] 1 [address] [place] [address] 02/13/2025 2:00 PM EDT Appointment [facility]fusion [facility] 1 [address] [place] [address] 02/14/2025 2:00 PM EDT Appointment [facility] Infusion [facility] 1 4 [place] [address] 03/10/2025 8:30 AM EDT Clinical Support PAV Hematology/BMT and Cellular Therapy Program [address] [address] 03/10/2025 9:00 AM EDT Office Visit PAV CC Hematology/BMT and Cellular Therapy Program 750 [facility], [address] [place] [address] Isaura Wynn, HAND ASSEMBLER FOR PULLER OVER 800 [facility] 1st [place] [address] 03/10/2025 11:20 AM EDT Office Visit Pav CC Head, Neck & Respiratory 800 [facility], 2nd [place] [address] Elsa Razo, HAND ASSEMBLER FOR PULLER OVER 800 [place] [address] documented as of this encounter [...] documented as of this encounter Care Teams Hospitality Recruiter Relationship Specialty Start Date End Date Zhao Harris MD 1210 [facility] [address] [place] [address] PCP - General 12/03/20 documented as of this encounter
--- OUTSIDE RECORDS SUMMARY | 2025-01-22 08:15 | XMS_ITS | Encounter Summary ---
Author Organization [facility] Address [address] [place] [address] Care Team Providers Care Enrollment Consultant Name Role Phone Zhao Harris MD Primary Care Provider [phone] Encounter Details Date Type Department Care Team ([facility] st Contact Info) Description 12/12/2024 Orders Only PAV CC Hematology/BMT and Cellular Therapy Program [address] [place] [address] [place] [address] Gricel Gonzalez RN [facility] HEMATOLOGY PRO[facility]IC Social History [...] first t manav in the morning (EYE-HIGH SCHOOL COMBINATION TEACHER) to steady your nerves or to [...] AM EDT Appointment PAV A Interventional Radiology [facility] [place] [address] Hussain Calles, BRIAN 02/10/2025 8:30 AM EDT Clinical Support PAV Hematology/BMT and Cellular Therapy Program [address] [address] 02/10/2025 9:00 AM EDT Office Visit PAV Hematology/BMT and Cellular Therapy Program [address] [address] Elaina Boss, PA 800 [facility] [address] [place] [address] 02/10/2025 10:30 AM EDT Appointment [facility] Infusion Clinic 1 [address] [place] [address] 02/11/2025 2:00 PM EDT Appointment [facility] Infusion Clinic 1 [address] [place] [address] 02/12/2025 2:00 PM EDT Appointment [facility] Infusion [facility] 1 [address] [place] [address] 02/13/2025 2:00 PM EDT Appointment [facility] Infusion [facility] 1 [address] [place] [address] 02/14/2025 2:00 PM EDT Appointment [facility] Infusion [facility] 1 [address] [place] [address] 03/10/2025 8:30 AM EDT Clinical Support PAV CC Hematology/BMT and Cellular Therapy Program 750 [facility] [place] [address] 03/10/2025 9:00 AM EDT Office Visit PAV CC Hematology/BMT and Cellular Therapy Program 750 [facility] [place] [place] [address] Isaura Wynn, ONCOLOGY REP SPECIALIST 800 [facility] 1st [place] [address] 03/10/2025 11:20 AM EDT Office Visit Pav CC Head, Neck & Respiratory 800 [facility], 2nd [place] [address] Elsa Razo, ONCOLOGY REP SPECIALIST 800 [place] [address] documented as of this encounter Visit Diagnoses [...] documented as of this encounter Care Teams Enrollment Consultant Relationship Specialty Start Date End Date Zhao Harris MD [facility] [address] [address] PCP - General 12/03/20 documented as of this encounter
--- OUTSIDE RECORDS SUMMARY | 2025-01-22 08:15 | XMS_ITS | Encounter Summary ---
Author Organization [employer] ([place], [place], [place], [place]) Address [address] [place] [address] Care Team Providers Care Seo Coordinator Name Role Phone Unavailable Primary Care Provider Unavailabl e Encounter Details Date Type Department Care Team (Late st Contact Info) Description 07/10/2019 Transcribed Document [facility] Family Medicine [address] [place] [address] ProviderBrigida MD [address] [place] [address] Social History Tobacco Use Types [...] - Brigida ProviderMD - 07/10/2019 7:57 AM UPHOLSTERER APPRENTICE [facility] OR PACU Summary Primary Physician: SURY SHARMA MD-ORT Finalized Date/Time: 07/10/19 09:18:01 Pt. Name: HUGO AGUILAR JR, D.O.B./Sex: 1955 Male Med Rec #: [id number] Physician: SURY SHARMA MD-ORT Financial #: [id number] Pt. Type: O Room/Bed: Admit/Disch: 07/10/19 05:55:00 - Institution: [facility] PACU Case Times Entry 1 In PACU I 07/10/19 08:26:00 Ready for PACU 07/10/19 09:00:00 Discharge Discharge from PACU 07/10/19 09:00:00 I Last Modified By: Mariah Guerra RN 07/10/19 09:17:59 [facility] OR PACU Case Times Audit 07/10/19 09:17:59 Edge Setter: TERESA Modifier: CARRIEC 1 <*> Ready for PACU Discharge 07/10/19 08:56:00 1 <*> Discharge from PACU I 07/10/19 08:56:00 07/10/19 08:49:40 Edge Setter: TERESA Modifier: CARRIEC <+> 1 Discharge from PACU I Finalized By: Mariah Guerra RN Document Signatures Signed By: Mariah Guerra RN 07/10/19 09:18 documented in this encounter Plan of Treatment Not on file documented as of this encounter Visit Diagnoses Not on filedocumented in this encounter
--- OUTSIDE RECORDS SUMMARY | 2025-01-22 08:15 | XMS_ITS | Encounter Summary ---
Author Organization [facility] Address [address] [place] [address] Care Team Providers Care Mud Jack Nozzleman Name Role Phone Zhao Harris MD Primary Care Provider [phone] Encounter Details Date Type Department Care Team [...] drink first t manav in the morning (EYE-BOARD CERTIFIED ARTS THERAPIST) to steady your nerves or to get [...] A Interventional Radiology [address] [place] [address] Hussain Calles RN 02/10/2025 8:30 AM EDT Clinical Support PAV CC Hematology/BMT and Cellular Therapy Program [address] [address] 02/10/2025 9:00 AM EDT Office Visit PAV Hematology/BMT and Cellular Therapy Program [address] [address] Elaina Boss, ARAM [address] [place] [address] [address] [place] [address] 02/10/2025 10:30 AM EDT Appointment [facility] Infusion Clinic 1 [address] [place] [address] 02/11/2025 2:00 PM EDT Appointment [facility] Infusion [facility] 1 [address] [place] [address] 02/12/2025 2:00 PM EDT Appointment [facility] Infusion [facility] 1 [address] [place] [address] 02/13/2025 2:00 PM EDT Appointment [facility] Infusion [facility] 1 [address] [place] [address] 02/14/2025 2:00 PM EDT Appointment [facility] Infusion Clinic 1 4 [place] [address] 03/10/2025 8:30 AM EDT Clinical Support PAV Hematology/BMT and Cellular Therapy Program [address] [address] 03/10/2025 9:00 AM EDT Office Visit PAV CC Hematology/BMT and Cellular Therapy Program 750 [facility], [address] [place] [address] Isaura Wynn, CORPORATE ASSOCIATE ATTORNEY 800 [facility] [address]st [place] [address] 03/10/2025 11:20 AM EDT Office Visit Pav CC Head, Neck & Respiratory 800 [facility], 2nd [place] [address] Elsa Razo, CORPORATE ASSOCIATE ATTORNEY 800 [place] [address] documented as of this encounter [...] documented as of this encounter Care Teams Mud Jack Nozzleman Relationship Specialty Start Date End Date Zhao Harris MD 1210 [facility] [address] [place] [address] PCP - General 12/03/20 documented as of this encounter
--- OUTSIDE RECORDS SUMMARY | 2025-01-22 08:15 | XMS_ITS | Encounter Summary ---
Author Organization [employer] ([place], [place], [place], [place]) Address [address] [place] [address] Care Team Providers Care Technology Project Manager Name Role Phone Unavailable Primary Care Provider Unavailabl e Encounter Details Date Type Department Care Team (Late st Contact Info) Description 07/10/2019 Transcribed Document [facility] [place] [address] [place] [address] ProviderBrigida MD [address] [place] [address] Social History Tobacco Use Types [...] - Historical ProviderMD - 07/10/2019 7:17 AM DRIP PUMPER Pre Procedure Adult Entered On: 07/10/2019 7:21 EST Performed On: 07/10/2019 7:17 EST by RONNY BLISS RN Height and Weight, Clinical Dosing Height Source : Stated Height Entry Format : [place] Height, Feet : 5 ft(Converted to: 152 cm, 60 Inch) Height, Inches : 7 Inch(Converted to: 0 ft 7 Inch, 17.78 cm) Clinical Height : 170.18 cm Weight Source : Standing scale Weight Entry Format : [place] Clinical Dosing Weight : 86.36 kg Weight, Pounds : 190 lb Body Surface Area (BSA) : 1.98 m2 Body Mass Index : 29.8 kg/m2 (HI) [place] Body Weight : 65 kg RONNY BLISS [...] Days : No Contact With Traveler to [facility] : No Tuberculosis Symptoms : [...] RONNY BLISS RN - 07/10/2019 7:17 EST [place] Suicide Severity Rating Scale (C-SSRS) CSSRS Past [...] Arrival on Unit : Ambulatory Support Person/Patient Motion Picture Set Grip : Yes Support Person/Pt Rep Name : Faviola Support Person/Pt Rep Contact Information : [phone] Want Family/Rep/Phys Notified of Admit : No Emergency Contact #1 : Faviola Brown Emergency Contact #1 Emergency Contact #1 Relationship : Emergency Contact #2 : . Emergency Contact #2 Phone Number : . Emergency Contact #2 Relationship : . Information Obtained From : Patient Primary Language : Tanzanian Preferred Communication Mode : Verbal Communication Barrier [...] Scale Risk Level : 25-45 Medium Risk [place] Fall Interventions : Adequate lighting, Bed in [...] understanding Responsible Adult : Verbalizes understanding RONNY BILSS RN - 07/10/2019 7:17 EST Valuables and Belongings Valuables and Belongings : Clothing Clothing : Common streetwear Clothing Disposition : With family RONNY BLISS RN - 07/10/2019 7:17 EST documented in this encounter Plan of Treatment Not on file documented as of this encounter Visit Diagnoses Not on filedocumented in this encounter
--- OUTSIDE RECORDS SUMMARY | 2025-01-22 08:15 | XMS_ITS | Encounter Summary ---
Author Organization [facility] Address [address] [place] [address] Care Team Providers Care Administrative Secretary Name Role Phone Zhao Harris MD Primary Care Provider [phone] Encounter Details Date Type Department Care Team [...] first t manav in the morning (EYE-COMMERCIAL SALES DIRECTOR) to steady your nerves or to [...] Appointment PAV A Interventional Radiology [address] [place] [address] Hussain Calles RN 02/10/2025 8:30 AM EDT Clinical Support P[facility] CC Hematology/BMT and Cellular Therapy Program [address] [address] 02/10/2025 9:00 AM EDT Office Visit PAV Hematology/BMT and Cellular Therapy Program [address] [address] Elaina Boss, ARAM [address] [place] [address] [address] [place] [address] 02/10/2025 10:30 AM EDT Appointment [facility] Infusion [facility] 1 [address] [place] [address] 02/11/2025 2:00 PM EDT Appointment [facility]fusion [facility] 1 [address] [place] [address] 02/12/2025 2:00 PM EDT Appointment [facility]fusion [facility] 1 [address] [place] [address] 02/13/2025 2:00 PM EDT Appointment [facility] Infusion [facility] 1 [address] [place] [address] 02/14/2025 2:00 PM EDT Appointment [facility] Infusion [facility] 1 4 [place] [address] 03/10/2025 8:30 AM EDT Clinical Support PAV Hematology/BMT and Cellular Therapy Program [address] [address] 03/10/2025 9:00 AM EDT Office Visit PAV CC Hematology/BMT and Cellular Therapy Program 750 [facility], [address]st Flr [place] [address] Isaura Wynn, SHOULDER PUNCHER 800 [facility] 1st [place] [address] 03/10/2025 11:20 AM EDT Office Visit Pav CC Head, Neck & Respiratory 800 [facility], 2nd [place] [address] Elsa Razo, SHOULDER PUNCHER 800 [place] [address] documented as of this encounter [...] documented as of this encounter Care Teams Administrative Secretary Relationship Specialty Start Date End Date Zhao Harris MD 1210 [facility] [address] [place] [address] PCP - General 12/03/20 documented as of this encounter
--- OUTSIDE RECORDS SUMMARY | 2025-01-22 08:15 | XMS_ITS | Encounter Summary ---
Author Organization [employer] ([place], [place], [place], [place]) Address [address] [place] [address] Care Team Providers Care Ski Technician Name Role Phone Unavailable Primary Care Provider Unavailabl e Encounter Details Date Type Department Care Team (Late st Contact Info) Description 07/10/2019 Transcribed Document [facility] Family Medicine [address] [place] [address] ProviderBrigida MD [address] [place] [address] Social History Tobacco Use Types [...] - Brigida ProviderMD - 07/10/2019 7:57 AM APPIAN BPM DEVELOPER [facility] Main OR IntraOp Summary Primary Physician: SURY SHARMA MD-ORT Finalized Date/Time: 07/10/19 08:31:14 Pt. Name: HUGO AGUILAR JR, D.O.B./Sex: 1955 Male Med Rec #: [id number] Physician: SURY SHARMA MD-ORT Financial #: [id number] Pt. Type: O Room/Bed: Admit/Disch: 07/10/19 05:55:00 - Institution: [facility] IntraOp Case Attendance Entry 1 Entry 2 Entry 3 Case Attendee SURY SHARMA, INDY, TRAVIS, ESTRELLA, Kenrick Guadalupe, APPIAN BPM DEVELOPER/DREDGE WORKER MEAGANORGenia PROPELLER MECHANIC-ANS Role Performed Surgeon/Proceduralist, PROPELLER MECHANIC/Nurse Drawing Checker Filenet P8 Developer, First First Time In 07/10/19 07:38:00 07/10/19 07:38:00 07/10/19 07:38:00 Time Out 07/10/19 08:26:00 07/10/19 08:26:00 07/10/19 08:26:00 Procedure Knee Arthroscopy Knee Arthroscopy Knee Arthroscopy Other Attendee Superficial Wound Closed By: Last Modified By: Martha Goldberg RN Dobson, Melissa, RN Dobson, Melissa, RN 07/10/19 08:31:02 07/10/19 08:31:02 07/10/19 08:31:02 Entry 4 Entry 5 Case Attendee WILMER HECTOR Melissa, RN Role Performed Scrub, First Veneer Jointer Operator, First Time In 07/10/19 07:38:00 07/10/19 07:38:00 Time Out 07/10/19 08:26:00 07/10/19 08:26:00 Procedure Knee Arthroscopy Knee Arthroscopy Other Attendee Superficial Wound Closed By: Last Modified By: Martha Goldberg RN Dobson, Melissa, RN 07/10/19 08:31:02 07/10/19 08:31:02 S[facility] IntraOp Case Attendance Audit 07/10/19 08:31:02 Binding Cutter: [id number] Modifier: [id number] 1 <+> Time Out 1 <*> Procedure Knee Arthroscopy 2 <+> Time Out 2 <*> Procedure Knee Arthroscopy 3 <+> Time Out 3 <*> Procedure Knee Arthroscopy 4 <+> Time Out 4 <*> Procedure Knee Arthroscopy 5 <+> Time Out 5 <*> Procedure Knee Arthroscopy 07/10/19 08:12:16 Binding Cutter: [id number] Modifier: [id number] <+> 1 Time In <+> 1 Procedure [...] [facility] IntraOp Case Times Audit 07/10/19 08:30:17 Binding Cutter: [id number] Modifier: [id number] <+> 1 Out Room Time <+> 1 [...] SJE IntraOp Counts Final Audit 07/10/19 08:29:56 Binding Cutter: [id number] Modifier: [id number] 1 <*> Procedure Knee Arthroscopy S[facility] IntraOp Delays Entry 1 Delay Reason Other Duration 8 Minute(s) Last Modified By: Martha Goldberg RN 07/10/19 08:06:57 S[facility] IntraOp Departure from OR Entry 1 Integumentary Assessment Integumentary WDL Assessment WDL Transfer/Handoff Transfer to PACU Phase I Handoff Method Bedside/Face to face Post-op Transport Stretcher/Gurney Via Patient Transport Martha Goldberg RN, Accompanied by TRAVIS PUTNAM, PRODUCT MANAGEMENT ANALYST, PROPELLER MECHANIC-ANS Last Modified By: Martha Goldberg RN 07/10/19 08:06:58 S[facility] IntraOp Dressing and Packing Entry 1 Type Dressing Location RIGHT KNEE Wound Dressing Item 4x4's, Joseph, Kerlix/Maninder Applied By Kenrick Guadalupe, APPIAN BPM DEVELOPER/DREDGE WORKER Last Modified By: Martha Goldberg RN 07/10/19 [...] RN 07/10/19 08:07:26 S[facility] IntraOp General Case Tool Grinding Machine Operator 1 Case Information OR OR 05 SJE Case Level 1 Room Verified Yes Wound Class I - Clean Specialty SN Orthopedic Anesthesia Type General ASA Class 3 Diagnosis Preop Diagnosis RIGHT KNEE PAIN Postop Same As Preop Yes Postop Diagnosis RIGHT KNEE PAIN Last Modified By: Martha Goldberg RN 07/10/19 08:16:03 S[facility] IntraOp General Case Data Audit 07/10/19 08:16:03 Binding Cutter: [id number] Modifier: [id number] <+> 1 ASA Class <+> 1 Anesthesia [...] SJE IntraOp Intraoperative Equipment Audit 07/10/19 08:15:09 Binding Cutter: [id number] Modifier: [id number] 1 <*> Photo Yes 1 <*> Video [...] 20ml vial Marcaine 0.5% 30ml vial - [id number] - [id number] Combo Med List Time Administered 07/10/19 07:57:00 07/10/19 07:57:00 Route of LOCAL LOCAL Administration Dose Dose 25 20 Unit of Measure ml ml Volume Administered By Kenrick Guadalupe, APPIAN BPM DEVELOPER/DREDGE WORKER Kenrick Guadalupe CST/FREDY Procedure Irrigation Irrigant Volume [...] Positioned By Martha Goldberg RN, TRAVIS PUTNAM, PRODUCT MANAGEMENT ANALYST, PROPELLER MECHANIC-ANS Position Verified Positioning Yes Verified by Anesthesia [...] Intra Op Sign Out Audit 07/10/19 08:30:31 Binding Cutter: [id number] Modifier: [id number] <+> 1 RN Sign Out Signature Date/Time [...] SJE IntraOp Surgical Procedures Audit 07/10/19 08:30:36 Binding Cutter: [id number] Modifier: [id number] <+> 1 Stop 07/10/19 08:16:57 Binding Cutter: [id number] Modifier: [id number] 1 <*> Procedure Knee Arthroscopy SJE IntraOp Temp Regulation Devices Entry 1 Temp Regulation Temperature Warm blankets Regulation Device Temperature Upper body Regulation Site Temperature TRAVIS PUTNAM APRN, Regulation Device PROPELLER MECHANIC-ANS Applied by Last Modified By: Martha Goldberg [...] SJE IntraOp Time Out Audit 07/10/19 08:31:00 Binding Cutter: [id number] Modifier: [id number] 1 <*> Beta Jaime Administered N/A 1 <*> Procedure to be Performed Knee Arthroscopy Case Comments <None> Finalized By: Martha Goldberg RN Document Signatures Signed By: Martha Goldberg RN 07/10/19 08:31 Electronically signed by [facility] Conversion Heel Gummer Cerner at 11/06/2022 5:47 PM CDT documented in this encounter Plan of Treatment Not on file documented as of this encounter Visit Diagnoses Not on filedocumented in this encounter
--- OUTSIDE RECORDS SUMMARY | 2025-01-22 08:15 | XMS_ITS | Encounter Summary ---
Author Organization [facility] Address [address] [place] [address] Care Team Providers Care Bee Producer Name Role Phone Zhao Harris MD Primary Care Provider [phone] Encounter Details Date Type Department Care Team [...] drink first t manav in the morning (EYE-COCOA MILLING MACHINE OPERATOR) to steady your nerves [...] ([facility] st Contact Info) Description 02/02/2025 11:00 AM EDT Appointment P[facility] A Interventional Radiology [address] [place] [address] Hussain Calles RN 02/10/2025 8:30 AM EDT Clinical Support [facility] CC Hematology/BMT and Cellular Therapy Program [address] [address] 02/10/2025 9:00 AM EDT Office Visit [facility] Hematology/BMT and Cellular Therapy Program [address] [address] Elaina Boss, ARAM [address] [place] [address] [address] [place] [address] 02/10/2025 10:30 AM EDT Appointment [facility] Infusion Clinic 1 [address] [place] [address] 02/11/2025 2:00 PM EDT Appointment [facility] 1 [address] [place] [address] 02/12/2025 2:00 PM EDT Appointment [facility] 1 [address] [place] [address] 02/13/2025 2:00 PM EDT Appointment [facility] 1 [address] [place] [address] 02/14/2025 2:00 PM EDT Appointment [facility] 1 4 [place] [address] 03/10/2025 8:30 AM EDT Clinical Support [facility] Hematology/BMT and Cellular Therapy Program [address] [address] 03/10/2025 9:00 AM EDT Office Visit [facility] CC Hematology/BMT and Cellular Therapy Program 750 [facility], [address] [place] [address] Isaura Wynn, REINSURANCE ANALYST 800 [facility] Cancer Ctr [address] [place] [address] 03/10/2025 11:20 AM EDT Office Visit Pav CC Head, Neck & Respiratory 800 [facility], 2nd [place] [address] Elsa Razo, REINSURANCE ANALYST [address] [place] [address] documented as of this [...] documented as of this encounter Care Teams Bee Producer Relationship Specialty Start Date End Date Zhao Harris MD 1210 [facility] [address] [place] [address] PCP - General 12/03/20 documented as of this encounter
--- OUTSIDE RECORDS SUMMARY | 2025-01-22 08:15 | XMS_ITS | Clinical Summary ---
Author Organization [employer] ([place], [place], [place], [place]) Address [address] [place] [address] Care Team Providers Care Government Relations Manager Name Role Phone Unavailable Primary Care [...]
--- OUTSIDE RECORDS SUMMARY | 2025-01-22 08:15 | XMS_ITS | Encounter Summary ---
Author Organization [facility] Address [address] [place] [address] Care Team Providers Care Upholstery Estimator Name Role Phone Zhao Harris MD Primary Care Provider [phone] Encounter Details Date Type Department Care Team [...] drink first t manav in the morning (EYE-FACILITATOR) to steady your nerves or to get [...] Appointment [facility] A Interventional Radiology [address] [place] [address] Hussain Calles RN 02/10/2025 8:30 AM EDT Clinical Support [facility] CC Hematology/BMT and Cellular Therapy Program [address] [address] 02/10/2025 9:00 AM EDT Office Visit [facility] Hematology/BMT and Cellular Therapy Program [address] [address] Elaina Boss, ARAM [address] [place] [address] [address] [place] [address] 02/10/2025 10:30 AM EDT Appointment [facility] Infusion [facility] 1 [address] [place] [address] 02/11/2025 2:00 PM EDT Appointment [facility] 1 [address] [place] [address] 02/12/2025 2:00 PM EDT Appointment [facility] 1 [address] [place] [address] 02/13/2025 2:00 PM EDT Appointment [facility] 1 [address] [place] [address] 02/14/2025 2:00 PM EDT Appointment [facility]fusion [facility] 1 4 [place] [address] 03/10/2025 8:30 AM EDT Clinical Support [facility] Hematology/BMT and Cellular Therapy Program [address] [address] 03/10/2025 9:00 AM EDT Office Visit [facility] CC Hematology/BMT and Cellular Therapy Program 750 [facility], [address] [place] [address] Isaura Wynn, RETAIL SPECIALIST 800 [facility] Cancer Ctr [address] [place] [address] 03/10/2025 11:20 AM EDT Office Visit Pav CC Head, Neck & Respiratory 800 [facility], 2nd [place] [address] Elsa Razo, RETAIL SPECIALIST [address] [place] [address] documented as of this encounter [...] documented as of this encounter Care Teams Upholstery Estimator Relationship Specialty Start Date End Date Zhao Harris MD 1210 [facility] [address] [address] PCP - General 12/03/20 documented as of this encounter
--- OUTSIDE RECORDS SUMMARY | 2025-01-22 08:15 | XMS_ITS | Encounter Summary ---
Author Organization [employer] ([place], [place], [place], [place]) Address [address] [place] [address] Care Team Providers Care Circus Agent Name Role Phone Unavailable Primary Care Provider Unavailabl e Encounter Details Date Type Department Care Team (Late st Contact Info) Description 07/10/2019 Transcribed Document [facility] Family Medicine [address] [place] [address] ProviderBrigida MD [address] [place] [address] Social History Tobacco Use Types [...] Brigida Vega MD - 07/10/2019 8:16 AM COLLATING MACHINE OPERATOR Patient: HUGO AGUILAR JR Age: 63 years [...]
--- OUTSIDE RECORDS SUMMARY | 2025-01-22 08:15 | XMS_ITS | Encounter Summary ---
Author Organization [employer] ([place], [place], [place], [place]) Address [address] [place] [address] Care Team Providers Care Gi Physician Name Role Phone Unavailable Primary Care Provider Unavailabl e Encounter Details Date Type Department Care Team (Late st Contact Info) Description 07/10/2019 Transcribed Document [facility] [place] [address] [place] [address] ProviderBrigida MD [address] [place] [address] Social History Tobacco Use Types [...] - Historical ProviderMD - 07/10/2019 9:45 AM CASING SEWER Event Note Entered On: 07/10/2019 11:04 EST Performed On: 07/10/2019 9:45 EST by Laquita Romero RN Event Note Event Date/Time : 07/10/2019 9:45 EST Event Location : Other: post-op Description of Event : Pt informed that next dose of [place] pain medication due @ 3:45pm today instead of 3:30pm. Laquita Romero RN - 07/10/2019 11:02 EST Electronically signed by Katlin Maldonado Conversion Production Control Coordinator Cerner at 11/06/2022 6:14 PM CDT documented in this encounter Plan of Treatment Not on file documented as of this encounter Visit Diagnoses Not on filedocumented in this encounter
--- OUTSIDE RECORDS SUMMARY | 2025-01-22 08:15 | XMS_ITS | Encounter Summary ---
Author Organization [facility] Address [address] [place] [address] Care Team Providers Care Credit Analysis Manager Name Role Phone Zhao Harris MD Primary Care Provider [phone] Encounter Details Date Type Department Care Team [...] drink first t manav in the morning (EYE-STRIPPER AND TAPER) to steady your nerves or to get [...] Upcoming Encounters Date Type Department Care Team ([facility] st Contact Info) Description 02/02/2025 11:00 AM EDT Appointment [facility] A Interventional Radiology [address] [place] [address] Hussain Calles RN 02/10/2025 8:30 AM EDT Clinical Support P[facility] CC Hematology/BMT and Cellular Therapy Program [address] [address] 02/10/2025 9:00 AM EDT Office Visit PAV Hematology/BMT and Cellular Therapy Program [address] [address] Elaina Boss, ARAM [address] [place] [address] [address] [place] [address] 02/10/2025 10:30 AM EDT Appointment [facility] Infusion Clinic 1 [address] [place] [address] 02/11/2025 2:00 PM EDT Appointment [facility] Infusion [facility] 1 [address] [place] [address] 02/12/2025 2:00 PM EDT Appointment [facility] Infusion [facility] 1 [address] [place] [address] 02/13/2025 2:00 PM EDT Appointment [facility] Infusion [facility] 1 [address] [place] [address] 02/14/2025 2:00 PM EDT Appointment [facility] Infusion [facility] 1 4 [place] [address] 03/10/2025 8:30 AM EDT Clinical Support [facility] Hematology/BMT and Cellular Therapy Program [address] [address] 03/10/2025 9:00 AM EDT Office Visit P[facility] CC Hematology/BMT and Cellular Therapy Program 750 [facility], [address] [place] [address] Isaura Wynn, GENERAL COUNSELOR 800 [facility] Cancer Ctr [address] [place] [address] 03/10/2025 11:20 AM EDT Office Visit Pav CC Head, Neck & Respiratory 800 [facility], 2nd [place] [address] Elsa Razo, GENERAL COUNSELOR [address] [place] [address] documented as of this encounter [...] as of this encounter Care Teams Credit Analysis Manager Relationship Specialty Start Date End Date Zhao Harris MD 1210 [facility] [address] [place] [address] PCP - General 12/03/20 documented as of this encounter
--- OUTSIDE RECORDS SUMMARY | 2025-01-22 08:15 | XMS_ITS | Encounter Summary ---
Author Organization [employer] ([place], [place], [place], [place]) Address [address] [place] [address] Care Team Providers Care Manager Disaster Recovery Name Role Phone Unavailable Primary Care Provider Unavailabl e Encounter Details Date Type Department Care Team (Late st Contact Info) Description 07/10/2019 Transcribed Document [facility] Family Medicine [address] [place] [address] ProviderBrigida MD [address] [place] [address] Social History Tobacco Use Types [...] - Brigida ProviderMD - 07/10/2019 7:57 AM ECONOMIC DEVELOPER [facility] Main OR PreOp Summary Primary Physician: SURY SHARMA MD-ORT Finalized Date/Time: 07/21/19 08:13:07 Pt. Name: HUGO AGUILAR JR, D.O.B./Sex: 1955 Male Med Rec #: [id number] Physician: SURY SHARMA MD-ORT Financial #: [id number] Pt. Type: O Room/Bed: Admit/Disch: 07/10/19 05:55:00 - 07/10/19 10:00:00 Institution: [facility] PreOp Case Times Entry 1 In Preop 07/10/19 06:10:00 Ready for Holding n/a Room Patient Ready for 07/10/19 07:19:00 Surgery Patient Out of Preop 07/10/19 07:35:00 Patient Out of n/a Holding Room Last Modified By: REAL SEVILLA 07/21/19 08:13:06 SJDiane PreOp Case Times Audit 07/21/19 08:13:06 Lunchroom Supervisor: FAY Modifier: [email or web address] <+> 1 Patient Out of Preop Finalized By: REAL SEVILLA Document Signatures Signed By: REAL SEVILLA 07/21/19 08:13 documented in this encounter Plan of Treatment Not on file documented as of this encounter Visit Diagnoses Not on filedocumented in this encounter
--- OUTSIDE RECORDS SUMMARY | 2025-01-22 08:15 | XMS_ITS | Encounter Summary ---
Author Organization [facility] ([place], [place], [place], [place]) Address [address] [place] [address] Care Team Providers Care Wind Farm Support Specialist Name Role Phone Unavailable Primary Care Provider Unavailabl e Encounter Details Date Type Department Care Team (Late st Contact Info) Description 07/10/2019 Transcribed Document [facility] Family Medicine [address] [place] [address] ProviderBrigida MD [address] [place] [address] Social History Tobacco Use Types [...] Brigida Vega MD - 07/10/2019 9:18 AM APPLICATIONS PROJECT MANAGER Patient Education Materials Follows: Local Anesthesia, Care [...] activities are safe for you. ??? Take kiwa-kot-uwpfxlj and prescription medicines only as told by [...] 12/28/2017 Document Revised: 03/07/2018 Document Reviewed: 12/28/2017 [facility] Interactive Patient Education ? 2019 [facility] General Anesthesia, Adult, Care After This [...] activities are safe for you. ??? Take klgt-mrx-tbuqynn and prescription medicines only as told by [...] 10/15/2001 Document Revised: 02/22/2018 Document Reviewed: 02/22/2018 [facility] Interactive Patient Education ? 2019 [facility] Knee Arthroscopy, Care After Refer to [...] activities are safe for you. ??? Perform mteuy-pl-vrpbsr exercises only as directed by your health [...] 01/26/2006 Document Revised: 12/08/2016 Document Reviewed: 07/05/2015 [email or web address] Interactive Patient Education ? 2018 [facility] documented in this encounter Plan of Treatment Not on file documented as of this encounter Visit Diagnoses Not on filedocumented in this encounter
--- OUTSIDE RECORDS SUMMARY | 2025-01-22 08:15 | XMS_ITS | Encounter Summary ---
Author Organization [facility] Address [address] [place] [address] Care Team Providers Care Alcohol Rubber Name Role Phone Zhao Harris MD Primary Care Provider [phone] Encounter Details Date Type Department Care Team ([facility] st Contact Info) Description 01/12/2025 Telephone P[facility] CC Hematology/BMT and Cellular Therapy Program [address] [address] Virgen Vargas MD 800 [facility] Cancer Ctr [address] [place] [address] Social History Tobacco Use Types Packs/Day Years [...] drink first t manav in the morning (EYE-DEHYDRATOR OPERATOR) to steady your nerves or to [...] Miscellaneous Notes * Telephone Encounter - Adam Conway RN - 01/12/2025 4:10 PM EDT made aware. * Telephone Encounter - Misty Patel - 01/12/2025 3:[address] Monae is calling to discuss the referral sent to his facility from our provider. Wanting tospeak to Dr. Vargas Callback number: [phone] Personal number documented in this encounter Plan of Treatment Upcoming Encounters Date Type Department Care Team ([facility] st Contact Info) Description 02/02/2025 11:00 AM EDT Appointment P[facility] A Interventional Radiology [address] [place] [address] Hussain Calles, BRIAN 02/10/2025 8:30 AM EDT Clinical Support [facility] CC Hematology/BMT and Cellular Therapy Program [address] [place] [address] 02/10/2025 9:00 AM EDT Office Visit PAV Hematology/BMT and Cellular Therapy Program [address] [address] Elaina Boss, ARAM 800 [facility] Cancer Ctr [address] [place] [address] 02/10/2025 10:30 AM EDT Appointment [facility] Infusion Clinic 1 [address] [place] [address] 02/11/2025 2:00 PM EDT Appointment [facility] Infusion [facility] 1 [address] [place] [address] 02/12/2025 2:00 PM EDT Appointment [facility] Infusion [facility] 1 [address] [place] [address] 02/13/2025 2:00 PM EDT Appointment [facility] Infusion [facility] 1 [address] [place] [address] 02/14/2025 2:00 PM EDT Appointment [facility] Infusion [facility] 1 [address] [place] [address] 03/10/2025 8:30 AM EDT Clinical Support [facility] CC Hematology/BMT and Cellular Therapy Program [address] [address] 03/10/2025 9:00 AM EDT Office Visit [facility] CC Hematology/BMT and Cellular Therapy Program [address] [address] Isaura Wynn, TELESALES ADVISOR 800 [facility] Ctr [address] [place] [address] 03/10/2025 11:20 AM EDT Office Visit Pav CC Head, Neck & Respiratory 800 [facility], 2nd [place] [address] Elsa Razo, TELESALES ADVISOR [address] [place] [address] documented as of this encounter Visit Diagnoses [...] documented as of this encounter Care Teams Alcohol Rubber Relationship Specialty Start Date End Date Zhao Harris MD [address] [place] [address] PCP - General 12/03/20 documented as of this encounter
--- OUTSIDE RECORDS SUMMARY | 2025-01-22 08:15 | XMS_ITS | Encounter Summary ---
Author Organization [facility] Address [address] [place] [address] Care Team Providers Care Dispatch Supervisor Name Role Phone Zhao Harris MD Primary Care Provider [phone] Reason for Visit * Reason Comments Med Refill Encounter Details Date Type Department Care Team (Late st Contact Info) Description 06/19/2023 Refill [facility] 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, unspecified vessel or [...] Appointment P[facility] A Interventional Radiology [address] [place] [address] Hussain Calles RN 02/10/2025 8:30 AM EDT Clinical Support [facility] CC Hematology/BMT and Cellular Therapy Program [address] [address] 02/10/2025 9:00 AM EDT Office Visit [facility] CC Hematology/BMT and Cellular Therapy Program [address] [address] Elaina Boss, PA 800 [facility] Cancer [address] [address] 02/10/2025 10:30 AM EDT Appointment [facility] Infusion [facility] 1 [address] [place] [address] 02/11/2025 2:00 PM EDT Appointment [facility] Infusion [facility] 1 [address] [place] [address] 02/12/2025 2:00 PM EDT Appointment [facility] Infusion [facility] 1 [address] [place] [address] 02/13/2025 2:00 PM EDT Appointment [facility] 1 [address] [place] [address] 02/14/2025 2:00 PM EDT Appointment [facility] 1 [address] [place] [address] 03/10/2025 8:30 AM EDT Clinical Support [facility] CC Hematology/BMT and Cellular Therapy Program [address] [place] [address] 03/10/2025 9:00 AM EDT Office Visit [facility] CC Hematology/BMT and Cellular Therapy Program [address] [address] Isaura Wynn APRN 800 [facility] Cancer [address] [address] 03/10/2025 11:20 AM EDT Office Visit Pav CC Head, Neck & Respiratory 800 [facility], [address] [place] [address] Elsa Razo, BIG DATA ADMIN [address] [place] [address] documented as of this encounter Visit Diagnoses Diagnosis Hypertension, unspecified type 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
--- OUTSIDE RECORDS SUMMARY | 2025-01-22 08:15 | XMS_ITS | Encounter Summary ---
Author Organization [employer] ([place], [place], [place], [place]) Address [address] [place] [address] Care Team Providers Care Welfare Administrator Name Role Phone Unavailable Primary Care Provider Unavailabl e Encounter Details Date Type Department Care Team (Late st Contact Info) Description 07/10/2019 Transcribed Document [facility] Family Medicine [address] [place] [address] ProviderBrigida MD [address] [place] [address] Social History Tobacco Use Types [...] - Brigida ProviderMD - 07/10/2019 7:57 AM SAS CLINICAL PROGRAMMER [facility] Main OR PostOp Summary Primary Physician: SURY SHARMA MD-ORT Finalized Date/Time: 07/10/19 10:03:33 Pt. Name: HUGO AGUILAR JR, D.O.B./Sex: 1955 Male Med Rec #: [id number] Physician: SURY SHARMA MD-ORT Financial #: [id number] Pt. Type: O Room/Bed: Admit/Disch: 07/10/19 05:55:00 - [place] [facility] [place]Op Case Times Entry 1 In PACU II 07/10/19 09:10:00 Ready for PACU II 07/10/19 10:00:00 Discharge Discharge from PACU 07/10/19 10:00:00 II Last Modified By: Laquita Romero RN 07/10/19 10:03:30 [facility] Main OR PostOp Case Times Audit 07/10/19 10:03:30 Supervisor Of Guidance And Testing: [id number] Modifier: [id number] <+> 1 Ready for PACU II Discharge <+> 1 Discharge from PACU II Finalized By: Laquita Romero RN Document Signatures Signed By: Laquita Romero RN 07/10/19 10:03 documented in this encounter Plan of Treatment Not on file documented as of this encounter Visit Diagnoses Not on filedocumented in this encounter
--- OUTSIDE RECORDS SUMMARY | 2025-01-22 08:15 | XMS_ITS | Encounter Summary ---
Author Organization [facility] Address [address] [place] [address] Care Team Providers Care Radiology Asst Name Role Phone Zhao Harris MD Primary Care Provider [phone] Encounter Details Date Type Department Care Team ([facility] st Contact Info) Description 12/16/2024 Orders Only [facility] CC Hematology/BMT and Cellular Therapy Program [address] [address] Christina Ramos MD [address] [facility] [address] [place] [address] Myelodysplasia (myelodysplastic syndrome) (CMS/HCC) (Primary Dx) Social [...] drink first t manav in the morning (EYE-RECEIVING LEAD) to steady your nerves or to [...] ([facility] st Contact Info) Description 02/02/2025 11:00 AM EDT Appointment PAV A Interventional Radiology [facility] [place] [address] Hussain Calles RN 02/10/2025 8:30 AM EDT Clinical Support [facility] CC Hematology/BMT and Cellular Therapy Program [address] [address] 02/10/2025 9:00 AM EDT Office Visit [facility] Hematology/BMT and Cellular Therapy Program [address] [place] [address] Elaina Boss, ARAM [address] [facility] [address] [place] [address] 02/10/2025 10:30 AM EDT Appointment [facility] 1 [address] [place] [address] 02/11/2025 2:00 PM EDT Appointment [facility] 1 [address] [place] [address] 02/12/2025 2:00 PM EDT Appointment [facility] 1 [address] [place] [address] 02/13/2025 2:00 PM EDT Appointment [facility] 1 [address] [place] [address] 02/14/2025 2:00 PM EDT Appointment [facility] [address] [place] [address] 03/10/2025 8:30 AM EDT Clinical Support [facility] Hematology/BMT and Cellular Therapy Program [address] [place] [address] 03/10/2025 9:00 AM EDT Office Visit [facility] Hematology/BMT and Cellular Therapy Program [address] [place] [address] Isaura Wynn, HISTORY INSTRUCTOR 800 [facility] [address] [place] [address] 03/10/2025 11:20 AM EDT Office Visit Pav Head, Neck & Respiratory 800 [facility], 2nd [place] [address] Elsa Razo, HISTORY INSTRUCTOR [address] [place] [address] documented as of this encounter [...] Resul t [facility] [address] [place] [address] * (ABNORMAL) CBC and differential (01/06/2025 8:49 [...] Resul t [facility] [address] [place] [address] * (ABNORMAL) CBC and differential (12/20/2024 9:00 [...] Resul t [facility] [address] [place] [address] * (ABNORMAL) CBC and differential (12/18/2024 9:14 AM EDT) WBC Count 0.51(LL) 3.70 - 10.30 10*3/uL LAB HEMATOLOGY METHOD 12/18/2024 10:49 AM EDT [facility] RBC Count 2.50(L) 4.60 - 6.10 10*6/uL LAB HEMATOLOGY METHOD 12/18/2024 10:49 AM EDT [facility] HGB 8.1(L) 13.7 - 17.5 g/dL LAB HEMATOLOGY METHOD 12/18/2024 10:49 AM EDT [facility] HCT 21.9(L) 40.0 - 51.0 % LAB HEMATOLOGY METHOD 12/18/2024 10:49 AM EDT [facility] Platelet Count 6(LL) 155 - 369 10*3/uL LAB HEMATOLOGY METHOD 12/18/2024 10:49 AM EDT [facility] MCV 88 79 - 98 fL LAB HEMATOLOGY METHOD 12/18/2024 10:49 AM EDT [facility] MCH 32.4(H) 26.0 - 32.0 pg LAB HEMATOLOGY METHOD 12/18/2024 10:49 AM EDT [facility] MCHC 37.0(H) 30.7 - 35.5 g/dL LAB HEMATOLOGY METHOD 12/18/2024 10:49 AM EDT [facility] RDW 16.7(H) 11.5 - 14.5 % LAB HEMATOLOGY METHOD 12/18/2024 10:49 AM EDT [facility] MPV LAB HEMATOLOGY METHOD 12/18/2024 10:49 AM EDT [facility] Comment:Not Measured nRBC 0.0 <=0.0 per 100 WBCs LAB HEMATOLOGY METHOD 12/18/2024 10:49 AM EDT [facility] Differential Type Automated LAB HEMATOLOGY METHOD 12/18/2024 10:49 AM EDT [facility] Neutrophils % 6 % LAB HEMATOLOGY METHOD 12/18/2024 10:49 AM EDT [facility] Lymphocytes % 90 % LAB HEMATOLOGY METHOD 12/18/2024 10:49 AM EDT [facility] Monocytes % 4 % LAB HEMATOLOGY METHOD 12/18/2024 10:49 AM EDT [facility] Eosinophils % 0 % LAB HEMATOLOGY METHOD 12/18/2024 10:49 AM EDT [facility] Basophils % 0 % LAB HEMATOLOGY METHOD 12/18/2024 10:49 AM EDT [facility] Immature Granulocytes % 0 % LAB HEMATOLOGY METHOD 12/18/2024 10:49 AM EDT [facility] Neutrophils Absolute 0.03(LL) 1.60 - 6.10 10*3/uL LAB HEMATOLOGY METHOD 12/18/2024 10:49 AM EDT [facility] Lymphocytes Absolute 0.46(L) 1.20 - 3.90 10*3/uL LAB HEMATOLOGY METHOD 12/18/2024 10:49 AM EDT [facility] Monocytes Absolute 0.02(L) 0.30 - 0.90 10*3/uL LAB HEMATOLOGY METHOD 12/18/2024 10:49 AM EDT [facility] Eosinophils Absolute 0.00 0.00 - 0.50 10*3/uL LAB HEMATOLOGY METHOD 12/18/2024 10:49 AM EDT [facility] Basophils Absolute 0.00 0.00 - 0.10 10*3/uL LAB HEMATOLOGY METHOD 12/18/2024 10:49 AM EDT [facility] Immature Granulocytes Absolute 0.00 0.00 - 0.06 10*3/uL LAB HEMATOLOGY METHOD 12/18/2024 10:49 AM EDT [facility] Blood Blood sample taken from central line / Unknown Venipuncture / Unknown 12/18/2024 9:14 AM EDT 12/18/2024 9:20 AM EDT Narrative [facility] - 12/18/2024 10:49 AM EDT Therapeutic decision making should be based on absolute values, rather than percentages. us Christina Ramos MD LAB BLOOD ORDERABLES Final Resul t [facility] [address] [place] [address] documented in this encounter Visit Diagnoses Diagnosis [...] documented as of this encounter Care Teams Radiology Asst Relationship Specialty Start Date End Date Zhao Harris MD [address] [place] [address] PCP - General 12/03/20 documented as of this encounter
--- OUTSIDE RECORDS SUMMARY | 2025-01-22 08:15 | XMS_ITS | Encounter Summary ---
Author Organization [employer] ([place], [place], [place], [place]) Address [address] [place] [address] Care Team Providers Care Housing Specialist Name Role Phone Unavailable Primary Care Provider Unavailabl e Encounter Details Date Type Department Care Team (Late st Contact Info) Description 07/10/2019 Transcribed Document [facility] Family Medicine [address] [place] [address] ProviderBrigida MD [address] [place] [address] Social History Tobacco Use Types [...] Brigida Vega MD - 07/10/2019 9:24 AM [place] [address] HUGO AGUILAR JR :1955 Visit Time:07/10/2019 What to do next Your Diagnosis Chondromalacia, right knee, Chondromalacia, right knee Instructions From Your Care Team Weight bearing as tolerated, use cane or crutches if needed. Keep dressing clean and dry for at least 2 days. Resume all home medications. Usual diet as tolerated. Mutual 10/325mg 1 tablet every 6 hours as needed for pain- next dose due @ 3:30pm today 07/10/19. Follow-Up Appointments Follow Up with SURY SHARMA MD-ORT When 07/21/2019 02:00 PM EST Where: [address] [facility] [address] [place] [address]- Medications What How Much When Instructions Next [...] activities are safe for you. ??? Take nsrs-tbh-hnrtngq and prescription medicines only as told by [...] 12/28/2017 Document Revised: 03/07/2018 Document Reviewed: 12/28/2017 [employer] Interactive Patient Education ?? 2019 [employer] General Anesthesia, Adult, Care After This [...] activities are safe for you. ??? Take zvno-ead-eyxhexf and prescription medicines only as told by [...] 10/15/2001 Document Revised: 02/22/2018 Document Reviewed: 02/22/2018 [employer] Interactive Patient Education ?? 2019 [employer] Knee Arthroscopy, Care After Refer to [...] activities are safe for you. ??? Perform qdfsc-bu-dnrrtm exercises only as directed by your health [...] 01/26/2006 Document Revised: 12/08/2016 Document Reviewed: 07/05/2015 [employer] Interactive Patient Education ?? 2018 [employer]. acetaminophen and hydrocodone (a SEET a MIN oh fen and laurie droe KOE done) Hycet, Lorcet, Mutual, Verdrocet, Vicodin, Xodol, Zamicet What is the [...] may report side effects to FDA at 8-582-DAJ-9161. What other drugs will affect acetaminophen and [...] affect acetaminophen and hydrocodone, including prescription and crho-ggk-xzbhqfy medicines, vitamins, and herbal products. Not all [...] to ensure that the information provided by [employer] ('[employer]') is accurate, up-to-date, and complete, but no guarantee is made to that effect. Drug information contained herein may be time sensitive. [employer] information has been compiled for use by healthcare practitioners and consumers in the [place] and therefore [employer] does not warrant that uses outside of the [place] are appropriate, unless specifically indicated otherwise. [employer] drug information does not endorse drugs, diagnose patients or recommend therapy. [employer] drug information is an informational resource designed [...] effective or appropriate for any given patient. [facility] does not assume any responsibility for any aspect of healthcare administered with the aid of information [facility] provides. The information contained herein is not intended to cover all possible uses, directions, precautions, warnings, drug interactions, allergic reactions, or adverse effects. If you have questions about the drugs you are taking, check with your doctor, nurse or pharmacist. Copyright 8421-2800 [employer] Version: 15.02. Revision Date: 05/27/2018. Emergency Awareness [...] Assistance with quitting is available by contacting 8-469-XKDZ-NOW. This is a free resource providing counseling, [...] was given the opportunity to ask questions. Patient/Engineering Librarian Name: Patient/Engineering Librarian Signature: Relationship to Patient: Clinician/Hospital Engineering Librarian Signature: Date: Electronically signed by Katlin Maldonado Conversion Automotive Parts Specialist Eulalio at 11/06/2022 5:54 PM CDT documented in this encounter Plan of Treatment Not on file documented as of this encounter Visit Diagnoses Not on filedocumented in this encounter
--- OUTSIDE RECORDS SUMMARY | 2025-01-22 08:15 | XMS_ITS | Encounter Summary ---
Author Organization [employer] ([place], [place], [place], [place]) Address [address] [place] [address] Care Team Providers Care Circus Rider Name Role Phone Unavailable Primary Care Provider Unavailabl e Encounter Details Date Type Department Care Team (Late st Contact Info) Description 07/10/2019 Transcribed Document [facility] [place] [facility] Family Medicine [address] [place] [address] ProviderBrigida MD [address] [place] [address] Social History Tobacco Use Types [...] Brigida Vega MD - 07/10/2019 7:04 AM HOOD MAKER Patient: HUGO AGUILAR JR Age: 63 years Sex: Male : 1955 Associated Diagnoses: None Author: DWAYNE SHARMA MD-ORT HISTORY AND PHYSICAL DATE: Patient: Hugo Aguilar Date of : 1955 Patient Number: [id number] History of Present Illness Hugo is here [...] anesthetic at surgery Center. No further questions. Dwanye Burris???Andrea JAMES documented in this encounter Plan of Treatment Not on file documented as of this encounter Visit Diagnoses Not on filedocumented in this encounter
--- OUTSIDE RECORDS SUMMARY | 2025-01-22 08:16 | XMS_ITS | Encounter Summary ---
Author Organization [facility] Address [address] [place] [address] Care Team Providers Care Bias Cutter Helper Name Role Phone Zhao Harris MD Primary Care Provider [phone] Encounter Details Date Type Department Care Team [...] drink first t manav in the morning (EYE-DEMOLITIONIST) to steady your nerves or to get [...] Appointment [facility] A Interventional Radiology [address] [place] [address] Hussain Calles RN 02/10/2025 8:30 AM EDT Clinical Support [facility] CC Hematology/BMT and Cellular Therapy Program [address] [address] 02/10/2025 9:00 AM EDT Office Visit PAV Hematology/BMT and Cellular Therapy Program [address] [address] Elaina Boss, ARAM 800 [facility] [address] [place] [address] 02/10/2025 10:30 AM EDT Appointment [facility] Infusion [facility] 1 [address] [place] [address] 02/11/2025 2:00 PM EDT Appointment [facility] 1 [address] [place] [address] 02/12/2025 2:00 PM EDT Appointment [facility] 1 [address] [place] [address] 02/13/2025 2:00 PM EDT Appointment [facility] 1 [address] [place] [address] 02/14/2025 2:00 PM EDT Appointment [facility] 1 [address] [place] [address] 03/10/2025 8:30 AM EDT Clinical Support P[facility] Hematology/BMT and Cellular Therapy Program [address] [address] 03/10/2025 9:00 AM EDT Office Visit [facility] CC Hematology/BMT and Cellular Therapy Program [address] [facility], [address] [place] [place] [address] Isaura Wynn, INNERSOLE FITTER 800 [facility] [address] [place] [address] 03/10/2025 11:20 AM EDT Office Visit Pav CC Head, Neck & Respiratory [address] [facility], 2nd [place] [address] Elsa Razo, INNERSOLE FITTER [address] [place] [address] documented as of this encounter Visit Diagnoses [...] documented as of this encounter Care Teams Bias Cutter Helper Relationship Specialty Start Date End Date Zhao Harris MD [address] [facility] [address] [place] [address] PCP - General 12/03/20 documented as of this encounter
--- OUTSIDE RECORDS SUMMARY | 2025-01-22 08:16 | XMS_ITS | Encounter Summary ---
Author Organization [facility] Address [address] [place] [address] Care Team Providers Care Casino Duty Manager Name Role Phone Zhao Harris MD Primary Care Provider [phone] Encounter Details Date Type Department Care Team [...] drink first t manav in the morning (EYE-SAIL REPAIR PERSON) to steady your nerves or to get [...] Upcoming Encounters Date Type Department Care Team ([facility] st Contact Info) Description 02/02/2025 11:00 AM EDT Appointment P[facility] A Interventional Radiology [address] [place] [address] Hussain Calles RN 02/10/2025 8:30 AM EDT Clinical Support [facility] CC Hematology/BMT and Cellular Therapy Program [address] [address] 02/10/2025 9:00 AM EDT Office Visit PAV Hematology/BMT and Cellular Therapy Program [address] [address] Elaina Boss, ARAM 800 [facility] [address] [place] [address] 02/10/2025 10:30 AM EDT Appointment [facility] 1 [address] [place] [address] 02/11/2025 2:00 PM EDT Appointment [facility] 1 [address] [place] [address] 02/12/2025 2:00 PM EDT Appointment [facility] 1 [address] [place] [address] 02/13/2025 2:00 PM EDT Appointment [facility] 1 [address] [place] [address] 02/14/2025 2:00 PM EDT Appointment [facility] 1 [address] [place] [address] 03/10/2025 8:30 AM EDT Clinical Support [facility] Hematology/BMT and Cellular Therapy Program [address] [address] 03/10/2025 9:00 AM EDT Office Visit [facility] CC Hematology/BMT and Cellular Therapy Program 750 [facility], [address] [place] [place] [address] Isaura Wynn, POULTRY TENDER 800 [facility] [address] [place] [address] 03/10/2025 11:20 AM EDT Office Visit Pav CC Head, Neck & Respiratory 800 [facility], 2nd [place] [address] Elsa Razo, POULTRY TENDER [address] [place] [address] documented as of this encounter Visit Diagnoses [...] documented as of this encounter Care Teams Casino Duty Manager Relationship Specialty Start Date End Date Zhao Harris MD [address] [facility] [address] [place] [address] PCP - General 12/03/20 documented as of this encounter
--- OUTSIDE RECORDS SUMMARY | 2025-01-22 08:16 | XMS_ITS | Encounter Summary ---
Author Organization [facility] Address [address] [place] [address] Care Team Providers Care Picture Frames Inspector Name Role Phone Zhao Harris MD Primary Care Provider [phone] Encounter Details Date Type Department Care Team ([facility] st Contact Info) Description 11/19/2024 Orders Only P[facility] CC Hematology/BMT and Cellular Therapy Program [address] [place] [address] [place] [address] Adam Conway RN [facility] HEMATOLOGY PROGRAM CLINIC Myelodysplasia (myelodysplastic [...] first t manav in the morning ([employer] LINES ACCOUNT MANAGER) to steady your nerves or [...] Upcoming Encounters Date Type Department Care Team ([facility] st Contact Info) Description 02/02/2025 11:00 AM EDT Appointment PAV A Interventional Radiology [address] [place] [address] Hussain Calles RN 02/10/2025 8:30 AM EDT Clinical Support PAV Hematology/BMT and Cellular Therapy Program [address] [place] [phone] 02/10/2025 9:00 AM EDT Office Visit P[facility] Hematology/BMT and Cellular Therapy Program [address] [place] [phone] Elaina Boss, PA 800 [facility] [address] [place] [phone] 02/10/2025 10:30 AM EDT Appointment [facility]fusion [facility] [address] [place] [address] 02/11/2025 2:00 PM EDT Appointment [facility] [address] [place] [address] 02/12/2025 2:00 PM EDT Appointment [facility] [address] [place] [address] 02/13/2025 2:00 PM EDT Appointment [facility] [address] [place] [address] 02/14/2025 2:00 PM EDT Appointment [facility] [address] [place] [address] 03/10/2025 8:30 AM EDT Clinical Support P[facility] CC Hematology/BMT and Cellular Therapy Program 750 [facility], [place] [address] 03/10/2025 9:00 AM EDT Office Visit P[facility] CC Hematology/BMT and Cellular Therapy Program 750 [facility], [place] [phone] Isaura Wynn, NEIGHBORHOOD COORDINATOR 800 [facility] [address] [place] [address] 03/10/2025 11:20 AM EDT Office Visit Pav CC Head, Neck & Respiratory 800 [facility], 2nd [place] [address] Elsa Razo, NEIGHBORHOOD COORDINATOR [address] [place] [address] Scheduled Orders Name Type Priority [...] CBC and Differential (01/14/2025 9:06 AM EDT) [facility] WBC Count 0.54(LL) 3.70 - 10.30 10*3/uL LAB HEMATOLOGY METHOD 01/14/2025 10:14 AM EDT [facility] RBC Count 2.75(L) 4.60 - 6.10 10*6/uL LAB HEMATOLOGY METHOD 01/14/2025 10:14 AM EDT [facility] HGB 8.2(L) 13.7 - 17.5 g/dL LAB HEMATOLOGY METHOD 01/14/2025 10:14 AM EDT [facility] HCT 23.2(L) 40.0 - 51.0 % LAB HEMATOLOGY METHOD 01/14/2025 10:14 AM EDT [facility] Platelet Count 21(L) 155 - 369 10*3/uL LAB HEMATOLOGY METHOD 01/14/2025 10:14 AM EDT [facility] MCV 84 79 - 98 fL LAB HEMATOLOGY METHOD 01/14/2025 10:14 AM EDT [facility] MCH 29.8 26.0 - 32.0 pg LAB HEMATOLOGY METHOD 01/14/2025 10:14 AM EDT [facility] MCHC 35.3 30.7 - 35.5 g/dL LAB HEMATOLOGY METHOD 01/14/2025 10:14 AM EDT [facility] RDW 14.3 11.5 - 14.5 % LAB HEMATOLOGY METHOD 01/14/2025 10:14 AM EDT [facility] MPV 8.1(L) 8.8 - 12.5 fL LAB HEMATOLOGY METHOD 01/14/2025 10:14 AM EDT [facility] nRBC 0.0 <=0.0 per 100 WBCs LAB HEMATOLOGY METHOD 01/14/2025 10:14 AM EDT [facility] Differential Type Automated LAB HEMATOLOGY METHOD 01/14/2025 10:14 AM EDT [facility] Neutrophils % 4 % LAB HEMATOLOGY METHOD 01/14/2025 10:14 AM EDT [facility] Lymphocytes % 92 % LAB HEMATOLOGY METHOD 01/14/2025 10:14 AM EDT [facility] Monocytes % 4 % LAB HEMATOLOGY METHOD 01/14/2025 10:14 AM EDT [facility] Eosinophils % 0 % LAB HEMATOLOGY METHOD 01/14/2025 10:14 AM EDT [facility] Basophils % 0 % LAB HEMATOLOGY METHOD 01/14/2025 10:14 AM EDT [facility] Immature Granulocytes % 0 % LAB HEMATOLOGY METHOD 01/14/2025 10:14 AM EDT [facility] Neutrophils Absolute 0.02(LL) 1.60 - 6.10 10*3/uL LAB HEMATOLOGY METHOD 01/14/2025 10:14 AM EDT [facility] Lymphocytes Absolute 0.50(L) 1.20 - 3.90 10*3/uL LAB HEMATOLOGY METHOD 01/14/2025 10:14 AM EDT [facility] Monocytes Absolute 0.02(L) 0.30 - 0.90 10*3/uL LAB HEMATOLOGY METHOD 01/14/2025 10:14 AM EDT [facility] Eosinophils Absolute 0.00 0.00 - 0.50 10*3/uL LAB HEMATOLOGY METHOD 01/14/2025 10:14 AM EDT [facility] Basophils Absolute 0.00 0.00 - 0.10 10*3/uL LAB HEMATOLOGY METHOD 01/14/2025 10:14 AM EDT [facility] Immature Granulocytes Absolute 0.00 0.00 - 0.06 10*3/uL LAB HEMATOLOGY METHOD 01/14/2025 10:14 AM EDT [facility] Blood Blood sample taken from central line / Unknown (Port) Long-term Catheter / Unknown 01/14/2025 9:06 AM EDT 01/14/2025 9:14 AM EDT Narrative [facility] - 01/14/2025 10:14 AM EDT Therapeutic decision making should be based on absolute values, rather than percentages. us Virgen Vargas MD LAB BLOOD ORDERABLES Final Re sult [facility] [address] [place], [place] [id number] * (ABNORMAL) Comprehensive Metabolic Panel, Plasma (12/18/2024 9:14 AM EDT) Glucose, Plasma 108(H) 74 - 99 mg/dL 12/18/2024 9:51 AM EDT [facility] BUN, Plasma 10 8 - 23 mg/dL 12/18/2024 9:51 AM EDT [facility] Creatinine, Plasma 0.80 0.70 - 1.20 mg/dL 12/18/2024 9:51 AM EDT [facility] BUN/Creatinine Ratio 13 12/18/2024 9:51 AM EDT [facility] Sodium, Plasma 139 136 - 145 mmol/L 12/18/2024 9:51 AM EDT [facility] Potassium, Plasma 4.4 3.6 - 4.9 mmol/L 12/18/2024 9:51 AM EDT [facility] Chloride, Plasma 108(H) 97 - 107 mmol/L 12/18/2024 9:51 AM EDT [facility] CO2, Plasma 22 22 - 29 mmol/L 12/18/2024 9:51 AM EDT [facility] Anion Gap 9 6 - 16 mmol/L 12/18/2024 9:51 AM EDT [facility] Total Calcium, Plasma 8.8(L) 8.9 - 10.2 mg/dL 12/18/2024 9:51 AM EDT [facility] Total Protein 6.8 6.3 - 7.9 g/dL 12/18/2024 9:51 AM EDT [facility] Albumin, Plasma 3.9 3.5 - 5.2 g/dL 12/18/2024 9:51 AM EDT [facility] AST, Plasma 16 10 - 50 U/L 12/18/2024 9:51 AM EDT [facility] ALT, Plasma 16 10 - 50 U/L 12/18/2024 9:51 AM EDT [facility] Alkaline Phosphatase, Plasma 83 40 - 115 U/L 12/18/2024 9:51 AM EDT [facility] Total Bilirubin, Plasma 0.6 0.2 - 1.1 mg/dL 12/18/2024 9:51 AM EDT [facility] eGFRcr 95.8 mL/min/1.7 3m*2 12/18/2024 9:51 AM EDT [facility] Comment:Reported eGFRcr in m L/min/1.73m2 is based the CKD-EPI 2020 equation that does not use a race coefficient. Blood Blood sample taken from central line / Unknown Venipuncture / Unknown 12/18/2024 9:14 AM EDT 12/18/2024 9:20 AM EDT us Virgen Vargas MD LAB BLOOD ORDERABLES Final Re sult [facility] [address] [place] [address] * (ABNORMAL) CBC and Differential (11/24/2024 2:07 PM EDT) WBC Count 0.76(LL) 3.70 - 10.30 10*3/uL LAB HEMATOLOGY METHOD 11/24/2024 2:44 PM EDT [facility] RBC Count 2.37(L) 4.60 - 6.10 10*6/uL LAB HEMATOLOGY METHOD 11/24/2024 2:44 PM EDT [facility] HGB 8.0(L) 13.7 - 17.5 g/dL LAB HEMATOLOGY METHOD 11/24/2024 2:44 PM EDT [facility] HCT 22.3(L) 40.0 - 51.0 % LAB HEMATOLOGY METHOD 11/24/2024 2:44 PM EDT [facility] Platelet Count 12(LL) 155 - 369 10*3/uL LAB HEMATOLOGY METHOD 11/24/2024 2:44 PM EDT [facility] MCV 94 79 - 98 fL LAB HEMATOLOGY METHOD 11/24/2024 2:44 PM EDT [facility] MCH 33.8(H) 26.0 - 32.0 pg LAB HEMATOLOGY METHOD 11/24/2024 2:44 PM EDT [facility] MCHC 35.9(H) 30.7 - 35.5 g/dL LAB HEMATOLOGY METHOD 11/24/2024 2:44 PM EDT [facility] RDW 18.8(H) 11.5 - 14.5 % LAB HEMATOLOGY METHOD 11/24/2024 2:44 PM EDT [facility] MPV LAB HEMATOLOGY METHOD 11/24/2024 2:44 PM EDT [facility] Comment:Not Measured nRBC 0.0 <=0.0 per 100 WBCs LAB HEMATOLOGY METHOD 11/24/2024 2:44 PM EDT [facility] Differential Type Automated LAB HEMATOLOGY METHOD 11/24/2024 2:44 PM EDT [facility] Neutrophils % 16 % LAB HEMATOLOGY METHOD 11/24/2024 2:44 PM EDT [facility] Lymphocytes % 79 % LAB HEMATOLOGY METHOD 11/24/2024 2:44 PM EDT [facility] Monocytes % 4 % LAB HEMATOLOGY METHOD 11/24/2024 2:44 PM EDT [facility] Eosinophils % 1 % LAB HEMATOLOGY METHOD 11/24/2024 2:44 PM EDT [facility] Basophils % 0 % LAB HEMATOLOGY METHOD 11/24/2024 2:44 PM EDT [facility] Immature Granulocytes % 0 % LAB HEMATOLOGY METHOD 11/24/2024 2:44 PM EDT [facility] Neutrophils Absolute 0.12(LL) 1.60 - 6.10 10*3/uL LAB HEMATOLOGY METHOD 11/24/2024 2:44 PM EDT [facility] Lymphocytes Absolute 0.60(L) 1.20 - 3.90 10*3/uL LAB HEMATOLOGY METHOD 11/24/2024 2:44 PM EDT [facility] Monocytes Absolute 0.03(L) 0.30 - 0.90 10*3/uL LAB HEMATOLOGY METHOD 11/24/2024 2:44 PM EDT [facility] Eosinophils Absolute 0.01 0.00 - 0.50 10*3/uL LAB HEMATOLOGY METHOD 11/24/2024 2:44 PM EDT [facility] Basophils Absolute 0.00 0.00 - 0.10 10*3/uL LAB HEMATOLOGY METHOD 11/24/2024 2:44 PM EDT [facility] Immature Granulocytes Absolute 0.00 0.00 [...] ORDERABLES Final Re sult [facility] [address] [place] [address] * Comprehensive Metabolic Panel, Plasma (11/24/2024 2:07 PM EDT) Glucose, Plasma 97 74 - 99 mg/dL 11/24/2024 3:44 PM EDT [facility] BUN, Plasma 13 8 - 23 mg/dL 11/24/2024 3:44 PM EDT [facility] Creatinine, Plasma 0.97 0.70 - 1.20 mg/dL 11/24/2024 3:44 PM EDT [facility] BUN/Creatinine Ratio 13 11/24/2024 3:44 PM EDT [facility] Sodium, Plasma 138 136 - 145 mmol/L 11/24/2024 3:44 PM EDT [facility] Potassium, Plasma 3.7 3.6 - 4.9 mmol/L 11/24/2024 3:44 PM EDT [facility] Chloride, Plasma 107 97 - 107 mmol/L 11/24/2024 3:44 PM EDT [facility] CO2, Plasma 22 22 - 29 mmol/L 11/24/2024 3:44 PM EDT [facility] Anion Gap 9 6 - 16 mmol/L 11/24/2024 3:44 PM EDT [facility] Total Calcium, Plasma 9.5 8.9 - 10.2 mg/dL 11/24/2024 3:44 PM EDT [facility] Total Protein 6.7 6.3 - 7.9 g/dL 11/24/2024 3:44 PM EDT [facility] Albumin, Plasma 3.8 3.5 - 5.2 g/dL 11/24/2024 3:44 PM EDT [facility] AST, Plasma 18 10 - 50 U/L 11/24/2024 3:44 PM EDT [facility] ALT, Plasma 20 10 - 50 U/L 11/24/2024 3:44 PM EDT [facility] Alkaline Phosphatase, Plasma 71 40 - 115 U/L 11/24/2024 3:44 PM EDT [facility] Total Bilirubin, Plasma 0.7 0.2 - 1.1 mg/dL 11/24/2024 3:44 PM EDT [facility] eGFRcr 84.5 mL/min/1.7 3m*2 11/24/2024 3:44 PM EDT [facility] Comment:Reported eGFRcr in m L/min/1.73m2 is based the CKD-EPI 2020 equation that does not use a race coefficient. Blood Venous blood specimen / Unknown Venipuncture / Unknown 11/24/2024 2:07 PM EDT 11/24/2024 2:44 PM EDT us Virgen Vargas MD LAB BLOOD ORDERABLES Final Re sult [facility] [address] [place] [address] * (ABNORMAL) Comprehensive Metabolic Panel, Plasma (11/20/2024 1:49 PM EDT) [facility] Glucose, Plasma 100(H) 74 - 99 mg/dL 11/20/2024 2:45 PM EDT [facility] BUN, Plasma 11 8 - 23 mg/dL 11/20/2024 2:45 PM EDT [facility] Creatinine, Plasma 1.01 0.70 - 1.20 mg/dL 11/20/2024 2:45 PM EDT [facility] BUN/Creatinine Ratio 11 11/20/2024 2:45 PM EDT [facility] Sodium, Plasma 135(L) 136 - 145 mmol/L 11/20/2024 2:45 PM EDT [facility] Potassium, Plasma 4.1 3.6 - 4.9 mmol/L 11/20/2024 2:45 PM EDT [facility] Chloride, Plasma 106 97 - 107 mmol/L 11/20/2024 2:45 PM EDT [facility] CO2, Plasma 21(L) 22 - 29 mmol/L 11/20/2024 2:45 PM EDT [facility] Anion Gap 8 6 - 16 mmol/L 11/20/2024 2:45 PM EDT [facility] Total Calcium, Plasma 9.1 8.9 - 10.2 mg/dL 11/20/2024 2:45 PM EDT [facility] Total Protein 6.7 6.3 - 7.9 g/dL 11/20/2024 2:45 PM EDT [facility] Albumin, Plasma 3.9 3.5 - 5.2 g/dL 11/20/2024 2:45 PM EDT [facility] AST, Plasma 26 10 - 50 U/L 11/20/2024 2:45 PM EDT [facility] ALT, Plasma 43 10 - 50 U/L 11/20/2024 2:45 PM EDT [facility] Alkaline Phosphatase, Plasma 71 40 - 115 U/L 11/20/2024 2:45 PM EDT [facility] Total Bilirubin, Plasma 0.7 0.2 - 1.1 mg/dL 11/20/2024 2:45 PM EDT [facility] eGFRcr 80.5 mL/min/1.7 3m*2 11/20/2024 2:45 PM EDT [facility] Comment:Reported eGFRcr in m L/min/1.73m2 is based the CKD-EPI 2020 equation that does not use a race coefficient. Blood Venous blood specimen / Unknown Venipuncture / Unknown 11/20/2024 1:49 PM EDT 11/20/2024 2:13 PM EDT us Virgen Vargas MD LAB BLOOD ORDERABLES Final Re sult [facility] [address] [place] [address] documented in this encounter Visit Diagnoses Diagnosis [...] documented as of this encounter Care Teams Picture Frames Inspector Relationship Specialty Start Date End Date Zhao Harris MD [address] [place] [address] PCP - General 12/03/20 documented as of this encounter
--- OUTSIDE RECORDS SUMMARY | 2025-01-22 08:16 | XMS_ITS | Encounter Summary ---
Author Organization [facility] Address [address] [place] [address] Care Team Providers Care Wire Photo Operator News Name Role Phone Zhao Harris MD Primary Care Provider [phone] Encounter Details Date Type Department Care Team (Late st Contact Info) Description 10/15/2024 Lab Requisition [facility] H Lab [address] [place] [phone] Virgen Vargas MD 800 [facility] [address] [place] [phone] Abnormal finding of blood chemistry, unspecified Social [...] Appointment P[facility] A Interventional Radiology [address] [place] [address] Hussain Calles RN 02/10/2025 8:30 AM EDT Clinical Support [facility] CC Hematology/BMT and Cellular Therapy Program [address] [phone] 02/10/2025 9:00 AM EDT Office Visit [facility] CC Hematology/BMT and Cellular Therapy Program [address] [phone] Elaina Boss, PA 800 [facility] [address] [place] [phone] 02/10/2025 10:30 AM EDT Appointment [facility]fusion [facility] 1 [address] [place] [address] 02/11/2025 2:00 PM EDT Appointment [facility] 1 [address] [place] [address] 02/12/2025 2:00 PM EDT Appointment [facility] 1 [address] [place] [address] 02/13/2025 2:00 PM EDT Appointment [facility] 1 [address] [place] [address] 02/14/2025 2:00 PM EDT Appointment [facility] 1 [address] [place] [address] 03/10/2025 8:30 AM EDT Clinical Support [facility] CC Hematology/BMT and Cellular Therapy Program [address] [address] 03/10/2025 9:00 AM EDT Office Visit [facility] CC Hematology/BMT and Cellular Therapy Program [address] [phone] Isaura Wynn, ESTRELLA 800 [facility] [address] [phone] 03/10/2025 11:20 AM EDT Office Visit Pav CC Head, Neck & Respiratory 800 [facility], 2nd [place] [address] Razo Elsa Marquis, SALES ACCOUNT COORDINATOR [address] [place] [address] documented as of this encounter Procedures Procedure Name Priority Date/Time Associated Diagnosis Comments BONE MARROW EXAM CONSULT Routine 10/15/2024 1:27 PM EDT Abnormal finding of blood chemistry, unspecified documented in this encounter Results * Bone marrow exam consult (10/15/2024 1:27 PM EDT) Case Report Bone Marrow Case: [id number] Authorizing Provider: Virgen Vargas MD Collected: 10/15/2024 1327 Ordering Location: [facility] Lab Received: 10/15/2024 1327 Pathologist: Martha Lopez MD Specimen: Bone Marrow Aspirate, [id number] 10/16/2024 2:02 PM EDT [facility] Final Diagnosis A. 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 10/16/2024 2:02 PM EDT [facility] Clinical Information R79.9 - Abnormal finding of blood chemistry, unspecified [ICD-10-CM] 10/16/2024 2:02 PM EDT [facility] CBC and Differential PERIPHERAL [...] Granulocytes % 0 10/16/2024 2:02 PM EDT [facility] Bone Marrow Differential BONE MARROW DIFFERENTIAL: 200 cells Normal Patient Neutrophils 15-50 22 Metamyelocytes 4-19 3 Myelocytes 1-18 11 Promyelocytes 1-8 1 Blasts 0-2 13 Monocytes 0-5 4 Erythroid 16-38 41 Lymphocytes 3-24 4 Eosinophils 0-6 1 Basophils 0-2 0 Plasma cells 0-4 0 Other 10/16/2024 2:02 PM EDT [facility] Bone Marrow Aspirate and [...] trabeculae are unremarkable. 10/16/2024 2:02 PM EDT [facility] Flow Cytometry Interpretation Outside flow cytometry showed 17% myeloblasts expressing CD34, CD117, partial CD 38, partial CD7, HLA-DR, CD13 and variable CD33. 10/16/2024 2:02 PM EDT [facility] CYTOGENETICS/MOL ECULAR INTERPRETATION Cytogenetic analysis showed normal male karyotype. No FLT3 duplication or mutation was identified, and no NPM1 mutation was identified. 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 10/16/2024 2:02 PM EDT [facility] Gross Description A. [id number] Received along with a corresponding pathology report from [facility]ology & Cytology Laboratory are 12 slides labeled outside case: [id number] collected on 09/19/2024. 10/16/2024 2:02 PM EDT [facility] Bone Marrow Specimen from bone marrow obtained by aspiration / Unknown 10/15/2024 1:27 PM EDT 10/15/2024 1:27 PM EDT us Virgen Vargas MD LAB PATHOLOGY ORDERABLES Terri lara Result [facility] [address] [place] [address] documented in this encounter Visit Diagnoses Diagnosis [...] documented as of this encounter Care Teams Wire Photo Operator News Relationship Specialty Start Date End Date Zhao Harris MD [address] [place] [address] PCP - General 12/03/20 documented as of this encounter
--- OUTSIDE RECORDS SUMMARY | 2025-01-22 08:16 | XMS_ITS | Encounter Summary ---
Author Organization [facility] Address [address] [place] [address] Care Team Providers Care Relief Cook Name Role Phone Zhao Harris MD Primary Care Provider [phone] Reason for Visit * Reason Comments Med Refill Encounter Details Date Type Department Care Team (Late st Contact Info) Description 01/18/2022 Refill [facility] [address] [facility], [address] [place] [address] Regina Hill, PA [address] [place] [address] Hypertension, unspecified type Social [...] Department Care Team (Late Contact Info) Description 02/02/2025 11:00 AM EDT Appointment [facility] A Interventional Radiology [address] [place] [address] Hussain Calles, RN 02/10/2025 8:30 AM EDT Clinical Support [facility] CC Hematology/BMT and Cellular Therapy Program 750 [facility] [place] [address] 02/10/2025 9:00 AM EDT Office Visit [facility] CC Hematology/BMT and Cellular Therapy Program [address] [phone] Elaina Boss, ARAM [address] [phone] 02/10/2025 10:30 AM EDT Appointment [facility] 1 [address] [place] [phone] 02/11/2025 2:00 PM EDT Appointment [facility] 1 [address] [place] [phone] 02/12/2025 2:00 PM EDT Appointment [facility] 1 [address] [place] [phone] 02/13/2025 2:00 PM EDT Appointment [facility] 1 [address] [place] [address] 02/14/2025 2:00 PM EDT Appointment [facility] 1 [address] [place] [address] 03/10/2025 8:30 AM EDT Clinical Support [facility] Hematology/BMT and Cellular Therapy Program [address] [phone] 03/10/2025 9:00 AM EDT Office Visit [facility] Hematology/BMT and Cellular Therapy Program [address] [phone] Isaura Wynn, ELECTRICIAN POWERHOUSE 800 [facility] [address] [phone] 03/10/2025 11:20 AM EDT Office Visit Pav Head, Neck & Respiratory 800 [facility], [address] [place] [address] Elsa Razo, ELECTRICIAN POWERHOUSE [address] [place] [address] documented as of this encounter Visit Diagnoses Diagnosis Hypertension, unspecified type documented in this encounter Additional Health Concerns Infection Onset Date Last Indicated Resolved Time Respiratory Rule-Out 11/03/2024 11/03/2024 025 5:17 PM EDT documented as of this encounter Care Teams Relief Cook Relationship Specialty Start Date End Date Zhao Harris MD [address] [place] [address] PCP - General 12/03/20 documented as of this encounter
--- OUTSIDE RECORDS SUMMARY | 2025-01-22 08:16 | XMS_ITS | Encounter Summary ---
Author Organization [facility] [place] Address [address] [place] [address] Care Team Providers Care Mosaicist Name Role Phone Zhao Harris MD Primary Care Provider [phone] Encounter Details Date Type Department Care Team [...] first t manav in the morning (EYE-CORPORATE LEGAL INTERN) to steady your nerves or to [...] Appointment [facility] A Interventional Radiology [address] [place] [address] Hussain Calles RN 02/10/2025 8:30 AM EDT Clinical Support [facility] Hematology/BMT and Cellular Therapy Program [address] [address] 02/10/2025 9:00 AM EDT Office Visit [facility] Hematology/BMT [facility] Cellular Therapy Program [address] [address] Elaina Boss, ARAM [address] [place] [address] [facility] [address] [address] [place] [phone] 02/10/2025 10:30 AM EDT Appointment [facility] [address] [place] [address] 02/11/2025 2:00 PM EDT Appointment [facility] 1 [address] [place] [address] 02/12/2025 2:00 PM EDT Appointment [facility] 1 [address] [place] [address] 02/13/2025 2:00 PM EDT Appointment [facility] 1 [address] [place] [address] 02/14/2025 2:00 PM EDT Appointment [facility] 1 [address] [place] [address] 03/10/2025 8:30 AM EDT Clinical Support [facility] Hematology/BMT and Cellular Therapy Program [address] [address] 03/10/2025 9:00 AM EDT Office Visit [facility] Hematology/BMT and Cellular Therapy Program 750 [facility], [address] [place] [address] Isaura Wynn, LICENSED HOME INSPECTOR 800 [facility] [address] [place] [address] 03/10/2025 11:20 AM EDT Office Visit [facility] CC Head, Neck & Respiratory 800 [facility], 2nd [place] [address] Elsa Razo, LICENSED HOME INSPECTOR [address] [place] [address] documented as of this encounter [...] documented as of this encounter Care Teams Mosaicist Relationship Specialty Start Date End Date Zhao Harris MD [address] [facility] [address] [address] PCP - General 12/03/20 documented as of this encounter
--- OUTSIDE RECORDS SUMMARY | 2025-01-22 08:16 | XMS_ITS | Encounter Summary ---
Author Organization [facility] Address [address] [place] [address] Care Team Providers Care Shoe Stitcher Name Role Phone Zhao Harris MD Primary Care Provider [phone] Encounter Details Date Type Department Care Team [...] drink first t manav in the morning (EYE-NAVY MATERIAL INSPECTOR) to steady your nerves or to [...] [facility] st Contact Info) Description 02/02/2025 11:00 AM EDT Appointment [facility] A Interventional Radiology [address] [place] [address] Hussain Calles RN 02/10/2025 8:30 AM EDT Clinical Support [facility] Hematology/BMT and Cellular Therapy Program [address] [address] 02/10/2025 9:00 AM EDT Office Visit [facility] Hematology/BMT and Cellular Therapy Program [address] [address] Elaina Boss, ARAM [address] [place] [address] [facility] [address] [place] [address] 02/10/2025 10:30 AM EDT Appointment [facility] 1 [address] [place] [address] 02/11/2025 2:00 PM EDT Appointment [facility] 1 [address] [place] [address] 02/12/2025 2:00 PM EDT Appointment [facility] 1 [address] [place] [address] 02/13/2025 2:00 PM EDT Appointment [facility] 1 [address] [place] [address] 02/14/2025 2:00 PM EDT Appointment [facility] 1 [address] [place] [address] 03/10/2025 8:30 AM EDT Clinical Support [facility] Hematology/BMT and Cellular Therapy Program [address] [address] 03/10/2025 9:00 AM EDT Office Visit [facility] Hematology/BMT and Cellular Therapy Program 750 [facility], [address] [place] [address] Isaura Wynn, SAILOR 800 [facility] [address] [place] [address] 03/10/2025 11:20 AM EDT Office Visit Pav CC Head, Neck & Respiratory [address] [facility], 2nd [place] [address] Elsa Razo, SAILOR [address] [place] [address] documented as of [...] documented as of this encounter Care Teams Shoe Stitcher Relationship Specialty Start Date End Date Zhao Harris MD 1210 [facility] [address] [address] PCP - General 12/03/20 documented as of this encounter
--- OUTSIDE RECORDS SUMMARY | 2025-01-22 08:16 | XMS_ITS | Clinical Summary ---
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, unspecified vessel or [...] 30 tablet 3 5 Active HYDROcodone-shalom taminophen ([place]) 5-325 MG tablet Take 1 tablet by [...] Encounters Date Type Department Care Team Description 01/20/2025 Telephone [facility] Hematology/BMT and Cellular Therapy Program 750 [facility], [facility] [place] [address] Elaina Boss PA 01/17/2025 7:45 AM EDT - 01/17/2025 11:59 PM EDT Hospital Encounter [facility] Infusion [address] [place] [address] Myelodysplasia (myelodysplastic syndrome) (CMS/HCC) (Primary Dx); Thrombocytopenia (CMS/HCC) Discharge Disposition: Home or Self Care 01/17/2025 Travel 01/16/2025 7:55 AM EDT - 01/16/2025 11:59 PM EDT Hospital Encounter [facility] [address] [place] [address] Myelodysplasia (myelodysplastic syndrome) (CMS/HCC) (Primary Dx) Discharge Disposition: Home or Self Care 01/16/2025 Travel 01/15/2025 9:58 AM EDT - 01/15/2025 11:59 PM EDT Hospital Encounter [facility] [address] [place] [address] Discharge Disposition: Home or Self Care 01/15/2025 8:11 AM EDT - 01/15/2025 9:57 AM EDT Hospital Encounter [facility] [address] [place] [address] Myelodysplasia (myelodysplastic syndrome) (CMS/HCC) (Primary Dx); Thrombocytopenia (CMS/HCC) Discharge Disposition: Home or Self Care 01/15/2025 Travel 01/14/2025 8:07 AM EDT - 01/14/2025 11:59 PM EDT Hospital Encounter [facility] 1 [address] [place] [address] Myelodysplasia (myelodysplastic syndrome) (CMS/HCC) (Primary Dx) Discharge Disposition: Home or Self Care 01/14/2025 Travel 01/13/2025 11:30 AM EDT - 01/13/2025 11:59 PM EDT Hospital Encounter [facility] [address] [place] [address] Myelodysplasia (myelodysplastic syndrome) (CMS/HCC) (Primary Dx); Thrombocytopenia (CMS/HCC) Discharge Disposition: Home or Self Care 01/13/2025 10:00 AM EDT Office Visit [facility] Hematology/BMT and Cellular Therapy Program [address] [phone] Isaura Wynn APRN Myelodysplasia (myelodysplastic syndrome) (CMS/HCC) (Primary Dx) 01/13/2025 9:30 AM EDT Clinical Support [facility] Hematology/BMT and Cellular Therapy Program [address] [place] [phone] 01/13/2025 Travel 01/12/2025 Telephone [facility] Hematology/BMT and Cellular Therapy Program [address] [phone] Virgen Vargas MD 01/06/2025 9:00 AM EDT Procedure Visit [facility] Hematology/BMT and Cellular Therapy Program [address] [phone] Kierra Novak APRN Myelodysplasia (myelodysplastic syndrome) (CMS/HCC) 01/06/2025 8:30 AM EDT Clinical Support [facility] Hematology/BMT and Cellular Therapy Program [address] [place] [phone] Nate Ponce RN 01/06/2025 Travel 01/05/2025 Travel 01/01/2025 [facility] [place] [address] [facility]. [address] [place] [address] Ra Best MD 12/23/2024 Orders Only [facility] Hematology/BMT and Cellular Therapy Program [address] [phone] Adam Conway RN Myelodysplasia (myelodysplastic syndrome) (CMS/HCC) (Primary Dx) 12/22/2024 9:58 AM EDT - 12/22/2024 11:59 PM EDT Hospital Encounter [facility] [address] [place] [address] Myelodysplasia (myelodysplastic syndrome) (CMS/HCC) (Primary Dx) Discharge Disposition: Home or Self Care 12/22/2024 8:24 AM EDT - 12/22/2024 9:57 AM EDT Hospital Encounter [facility] [address] [place] [address] Myelodysplasia (myelodysplastic syndrome) (CMS/HCC) (Primary Dx); Thrombocytopenia (CMS/HCC) Discharge Disposition: Home or Self Care 12/22/2024 Travel 12/21/2024 8:30 AM EDT - 12/21/2024 11:59 PM EDT Hospital Encounter [facility] 1 [address] [place] [address] Myelodysplasia (myelodysplastic syndrome) (CMS/HCC) (Primary Dx) Discharge Disposition: Home or Self Care 12/21/2024 Travel 12/20/2024 8:08 AM EDT - 12/20/2024 11:59 PM EDT Hospital Encounter [facility] 1 [address] [place] [address] Myelodysplasia (myelodysplastic syndrome) (CMS/HCC) (Primary Dx); Thrombocytopenia (CMS/HCC); SOB (shortness of breath) Discharge Disposition: Home or Self Care 12/20/2024 Travel 12/19/2024 8:30 AM EDT - 12/19/2024 11:59 PM EDT Hospital Encounter [facility] 2 [address] [place] [address] Myelodysplasia (myelodysplastic syndrome) (CMS/HCC) (Primary Dx) Discharge Disposition: Home or Self Care 12/19/2024 Travel 12/18/2024 9:46 AM EDT - 12/18/2024 11:59 PM EDT Hospital Encounter [facility] [address] [place] [address] Myelodysplasia (myelodysplastic syndrome) (CMS/HCC) (Primary Dx) Discharge Disposition: Home or Self Care 12/18/2024 8:30 AM EDT - 12/18/2024 9:45 AM EDT Hospital Encounter [facility] [address] [place] [address] Myelodysplasia (myelodysplastic syndrome) (CMS/HCC) (Primary Dx); Thrombocytopenia (CMS/HCC) Discharge Disposition: Home or Self Care 12/18/2024 Travel 12/17/2024 8:23 AM EDT - 12/17/2024 11:59 PM EDT Hospital Encounter [facility] [address] [place] [address] Myelodysplasia (myelodysplastic syndrome) (CMS/HCC) (Primary Dx); Thrombocytopenia (CMS/HCC) Discharge Disposition: Home or Self Care 12/17/2024 Travel 12/16/2024 11:00 AM EDT - 12/16/2024 11:59 PM EDT Hospital Encounter [facility] [address] [place] [address] Myelodysplasia (myelodysplastic syndrome) (CMS/HCC) (Primary Dx) Discharge Disposition: Home or Self Care 12/16/2024 10:00 AM EDT - 12/16/2024 10:59 AM EDT Hospital Encounter [facility] [address] [place] [address] Myelodysplasia (myelodysplastic syndrome) (CMS/HCC) (Primary Dx); Thrombocytopenia (CMS/HCC) Discharge Disposition: Home or Self Care 12/16/2024 8:30 AM EDT Office Visit [facility] Hematology/BMT and Cellular Therapy Program [address] [place] [address] Isaura Wynn APRN Myelodysplasia (myelodysplastic syndrome) (CMS/HCC) (Primary Dx) 12/16/2024 8:00 AM EDT Clinical Support [facility] Hematology/BMT and Cellular Therapy Program [address] [place] [address] [place] [address] 12/16/2024 Orders Only [facility] Hematology/BMT and Cellular Therapy Program [address] [place] [address] Christina Ramos MD Myelodysplasia (myelodysplastic syndrome) (CMS/HCC) (Primary Dx) 12/16/2024 Travel 12/12/2024 Orders Only [facility] Hematology/BMT and Cellular Therapy Program [address] [place] [address] Gricel Gonzalez RN 12/11/2024 2:30 PM EDT Office Visit [facility] Interventional Radiology [address], [address] [place] [address] Judy Leung APRN, DNP Port-A-Cath in place (Primary Dx); Myelodysplasia (myelodysplastic syndrome) (CMS/HCC) 12/11/2024 1:00 PM EDT Clinical Support [facility] 800 [facility], [address] [place] [address] Myelodysplasia (myelodysplastic syndrome) (CMS/HCC) (Primary Dx); Thrombocytopenia (CMS/HCC) 12/11/2024 9:00 AM EDT Office Visit [facility] Hematology/BMT and Cellular Therapy Program [address] [place] [phone] Virgen Vargas MD Myelodysplasia (myelodysplastic syndrome) (CMS/HCC) (Primary Dx); Encounter for antineoplastic chemotherapy; 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); Pancytopenia due to chemotherapy (CMS/HCC); Immunosuppressed due to chemotherapy 12/11/2024 8:30 AM EDT Clinical Support [facility] Hematology/BMT and Cellular Therapy Program [address] [place] [phone] Myelodysplasia (myelodysplastic syndrome) (CMS/HCC) 12/11/2024 Orders Only [facility] Hematology/BMT and Cellular Therapy Program [address] [place] [phone] Shahla Mejia RN 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) (Primary Dx) 12/11/2024 Travel 12/09/2024 1:30 PM EDT Clinical Support [facility] 800 [facility], [address] [place] [phone] Myelodysplasia (myelodysplastic syndrome) (CMS/HCC) (Primary Dx); Thrombocytopenia (CMS/HCC) 12/09/2024 9:00 AM EDT Procedure Visit [facility] Hematology/BMT and Cellular Therapy Program [address] [place] [address], [address] [place] [phone] Kierra Novak APRN Myelodysplasia (myelodysplastic syndrome) (CMS/HCC) 12/09/2024 8:30 AM EDT Clinical Support [facility] Hematology/BMT and Cellular Therapy Program [address] [place] [address], [address] [place] [phone] 12/09/2024 Telephone [facility] Hematology/BMT and Cellular Therapy Program [address] [place] [address], [address] [place] [phone] Essie Ricks RN 12/09/2024 Travel 12/08/2024 Travel 12/04/2024 Telephone [facility] Interventional Radiology [address] [place] [address] Martha William 12/01/2024 8:41 AM EDT - 12/01/2024 11:59 PM EDT Hospital Encounter [facility] Interventional Radiology [address] [place] [phone] Gela Singer Thrombocytopenia (CMS/HCC) (Primary Dx); Myelodysplasia (myelodysplastic syndrome) (CMS/HCC) Discharge Disposition: Home or Self Care 12/01/2024 Travel 11/26/2024 10:00 AM EDT Office Visit [facility] Inter[facility] Rad[facility] [address] [place] [address] Latoya Nunez APRN Preop examination (Primary Dx) 11/26/2024 Travel 11/25/2024 Telephone [facility] Hematology/BMT and Cellular Therapy Program [address] [place] [phone] Mast, Michelle N Distress Screen Follow-up 11/24/2024 2:30 PM EDT - 11/24/2024 11:59 PM EDT Hospital Encounter [facility] Infusion [facility] 1 [address] [place] [address] Discharge Disposition: Home or Self Care 11/24/2024 1:59 PM EDT - 11/24/2024 2:29 PM EDT Hospital Encounter [facility] Infusion Clinic 1 [address] [place] [address] Myelodysplasia (myelodysplastic syndrome) (CMS/HCC) (Primary Dx); Thrombocytopenia (CMS/HCC) Discharge Disposition: Home or Self Care 11/24/2024 Travel 11/23/2024 1:43 PM EDT - 11/23/2024 11:59 PM EDT Hospital Encounter [facility] Infusion [facility] 1 [address] [place] [address] Myelodysplasia (myelodysplastic syndrome) (CMS/HCC) (Primary Dx) Discharge Disposition: Home or Self Care 11/23/2024 Travel 11/22/2024 1:59 PM EDT - 11/22/2024 11:59 PM EDT Hospital Encounter [facility] Infusion [facility] 1 [address] [place] [address] Myelodysplasia (myelodysplastic syndrome) (CMS/HCC) (Primary Dx); Thrombocytopenia (CMS/HCC) Discharge Disposition: Home or Self Care 11/22/2024 Travel 11/21/2024 1:30 PM EDT - 11/21/2024 11:59 PM EDT Hospital Encounter [facility] Infusion [facility] 1 [address] [place] [address] Myelodysplasia (myelodysplastic syndrome) (CMS/HCC) (Primary Dx) Discharge Disposition: Home or Self Care 11/21/2024 Travel 11/20/2024 2:06 PM EDT - 11/20/2024 11:59 PM EDT Hospital Encounter [facility] Infusion [facility] 1 [address] [place] [address] Myelodysplasia (myelodysplastic syndrome) (CMS/HCC) (Primary Dx) Discharge Disposition: Home or Self Care 11/20/2024 1:36 PM EDT - 11/20/2024 2:05 PM EDT Hospital Encounter [facility] 1 [address] [place] [address] Myelodysplasia (myelodysplastic syndrome) (CMS/HCC) (Primary Dx); Thrombocytopenia (CMS/HCC) Discharge Disposition: Home or Self Care 11/20/2024 Travel 11/19/2024 2:00 PM EDT - 11/19/2024 11:59 PM EDT Hospital Encounter [facility] Infusion [facility] 1 [address] [place] [address] Myelodysplasia (myelodysplastic syndrome) (CMS/HCC) (Primary Dx) Discharge Disposition: Home or Self Care 11/19/2024 Travel 11/19/2024 Orders Only [facility] Hematology/BMT and Cellular Therapy Program [address] [address] Adam Conway, RN Myelodysplasia (myelodysplastic syndrome) (CMS/HCC) (Primary Dx) 11/18/2024 12:25 PM EDT - 11/18/2024 11:59 PM EDT Hospital Encounter [facility] Infusion [facility] 1 [address] [place] [address] Myelodysplasia (myelodysplastic syndrome) (CMS/HCC) (Primary Dx); Thrombocytopenia (CMS/HCC) Discharge Disposition: Home or Self Care 11/18/2024 11:00 AM EDT Office Visit [facility] Hematology/BMT and Cellular Therapy Program [address] [address] Isaura Wynn APRN Myelodysplasia (myelodysplastic syndrome) (CMS/HCC) (Primary Dx) 11/18/2024 10:30 AM EDT Clinical Support [facility] CC Hematology/BMT and Cellular Therapy Program [address] [phone] 11/18/2024 Telephone [facility] [address] [place] [address] Maia Velasquez, PharmD 11/18/2024 Telephone [facility] Hematology/BMT and Cellular Therapy Program [address] [place] [address] Brittny Mahoney RN 11/18/2024 Telephone [facility] Hematology/BMT and Cellular Therapy Program [address] [place] [address] Gricel Gonzalez RN 11/18/2024 Travel 11/17/2024 Travel 11/10/2024 3:00 PM EDT - 11/10/2024 11:59 PM EDT Hospital Encounter [facility] [address] [place] [address] Myelodysplasia (myelodysplastic syndrome) (CMS/HCC) (Primary Dx); Thrombocytopenia (CMS/HCC) Discharge Disposition: Home or Self Care 11/10/2024 2:00 PM EDT Procedure Visit [facility] Hematology/BMT and Cellular Therapy Program [address] [place] [phone] Elaina Boss PA Myelodysplasia (myelodysplastic syndrome) (CMS/HCC) (Primary Dx) 11/10/2024 1:30 PM EDT Clinical Support [facility] Hematology/BMT and Cellular Therapy Program [address] [phone] Eliana Vicente RN 11/10/2024 Travel 11/05/2024 11:00 AM EDT Clinical Support [facility] [address] [facility], [address] [place] [phone] Dyspnea on exertion 11/05/2024 10:00 AM EDT Office Visit [facility] [address] [phone] Elsa Razo, ESTRELLA Pre-transplant evaluation for stem cell transplant (Primary Dx); Myelodysplasia (myelodysplastic syndrome) (CMS/HCC); Dyspnea on exertion; 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; Thrombocytopenia (CMS/HCC) 11/05/2024 Results Follow-Up [facility] [address] [phone] Elsa Razo, MAINFRAME DEVELOPER 11/05/2024 Travel 11/03/2024 2:31 PM EDT - 11/03/2024 6:28 PM EDT Emergency [facility] Emergency Department [address] [place] [address] Kyle Bearden MD Symptomatic anemia (Primary Dx); Thrombocytopenia (CMS/HCC); Neutropenia, unspecified type (CMS/HCC) Discharge Disposition: Home or Self Care 11/03/2024 Travel 11/03/2024 Telephone [facility] Hematology/BMT and Cellular Therapy Program [address] [address] Virgen Vargas MD 10/29/2024 Telephone [facility] Hematology/BMT and Cellular Therapy Program [address] [address] Virgen Vargas MD 10/26/2024 1:20 PM EDT - 10/26/2024 11:59 PM EDT Hospital Encounter [facility] 2 [address] [place] [address] Myelodysplasia (myelodysplastic syndrome) (CMS/HCC) (Primary Dx); Thrombocytopenia (CMS/HCC) Discharge Disposition: Home or Self Care 10/26/2024 Travel 10/25/2024 2:50 PM EDT - 10/25/2024 11:59 PM EDT Hospital Encounter [facility] 2 [address] [place] [address] Myelodysplasia (myelodysplastic syndrome) (CMS/HCC) (Primary Dx) Discharge Disposition: Home or Self Care 10/25/2024 Travel 10/24/2024 2:12 PM EDT - 10/24/2024 11:59 PM EDT Hospital Encounter [facility] [address] [place] [address] Myelodysplasia (myelodysplastic syndrome) (CMS/HCC) (Primary Dx) Discharge Disposition: Home or Self Care 10/24/2024 Travel 10/24/2024 Orders Only [facility] Hematology/BMT and Cellular Therapy Program [address] [phone] Maia Kaplan RN 10/24/2024 Telephone [facility] Hematology/BMT and Cellular Therapy Program 750 [facility], [facility] [place] [address] Virgen Vargas MD 10/23/2024 2:53 PM EDT - 10/23/2024 11:59 PM EDT Hospital Encounter [facility] 2 [address] [place] [address] Myelodysplasia (myelodysplastic syndrome) (CMS/HCC) (Primary Dx) Discharge Disposition: Home or Self Care 10/23/2024 Travel from Last 3 Months Immunizations Immunization [...] drink first t manav in the morning (EYE-UTILITY LOCATOR) to steady your nerves or to get [...] Appointment [facility] Interventional Radiology [address] [place] [address] Hussain Calles RN 02/10/2025 8:30 AM EDT Clinical Support [facility] Hematology/BMT and Cellular Therapy Program [address] [place] [phone] 02/10/2025 9:00 AM EDT Office Visit [facility] Hematology/BMT and Cellular Therapy Program [address] [phone] Elaina Boss PA 800 [facility] [address] [place] [phone] 02/10/2025 10:30 AM EDT Appointment [facility] 1 [address] [place] [address] 02/11/2025 2:00 PM EDT Appointment [facility] 1 [address] [place] [address] 02/12/2025 2:00 PM EDT Appointment [facility] 1 [address] [place] [address] 02/13/2025 2:00 PM EDT Appointment [facility] 1 [address] [place] [address] 02/14/2025 2:00 PM EDT Appointment [facility] 1 [address] [place] [address] 03/10/2025 8:30 AM EDT Clinical Support [facility] Hematology/BMT and Cellular Therapy Program [address] [address] 03/10/2025 9:00 AM EDT Office Visit [facility] Hematology/BMT and Cellular Therapy Program [address] [phone] Isaura Wynn, MAINFRAME DEVELOPER 800 [facility] [address] [place] [address] 03/10/2025 11:20 AM EDT Office Visit [facility] 800 [facility], [address]nd [place] [phone] Elsa Razo, MAINFRAME DEVELOPER [address] [place] [address] Health Maintenance Due Date Last Done Comments [...] 2015 [facility]Y-Abdominal Aortic Aneurysm (AAA) Screening 2020 [id number] Vaccine (3 - Pfizer risk series) 11/11/2020 [...] this topic Medical Devices Implanted Type Area Playground Equipment Erector Device Identifier Shelf Expiration Date Model / Serial / Lot Port Clearvue Power 8fr - [id number] Implanted:Qty: 1 on 12/01/2024 by Mckinley Lee MD at [facility]-[id number] / / Procedures Procedure Name Priority Date/Time [...] 2:24 PM EDT Myelodysplasia (myelodysplastic syndrome) (CMS/HCC) HEPATITIS C ANTIBODY W/REFLEX TO HCV QUANT PCR Routine 09/29/2024 12:51 PM EDT Myelodysplasia (myelodysplastic syndrome) (CMS/HCC) from Last 3 Months or Most Recently Relevant to Health Maintenance Results * Transfuse RBC, Irradiated (01/17/2025 11:42 AM EDT) Only the most recent of8 resultswithin the time period is included. us Kayli CHIU BLOOD TRANSFUSION ORDERA BLES Final Result * Prepare Leukocyte Reduced RBC: 1 Units, Irradiated (01/17/2025 8:56 AM EDT) Only the most recent of8 resultswithin the time period is included. Product Code G4905E63 BLOO D BANK Dispense Status Transfused BLOOD BANK Blood Expiration Date [id number] BLOOD BANK Unit Number [id number] B LOOD BANK Product Blood Type 9500 BLOOD BANK Blood Type O- BLOOD BANK Crossmatch Compatible BLOOD BANK Other us Kayli CHIU BLOOD BANK PRODUCT ORDER VIKAS Final Result BLOOD BANK [address] [place] [address], [place] * (ABNORMAL) CBC and differential (01/17/2025 8:03 AM EDT) Only the most recent of20 resultswithin the time period is included. WBC Count 0.54(LL) 3.70 - 10.30 10*3/uL [...] EDT [facility] MPV 9.0 8.8 - 12.5 [...] 8:03 AM EDT 01/17/2025 8:07 AM EDT [facility] - 01/17/2025 9:41 AM EDT Therapeutic decision making should be based on absolute values, rather than percentages. Virgen Vargas MD LAB BLOOD ORDERABLES Final Re sult Performing Organization Address City/[facility]/ZIP Co de Phone Number [facility] [address] [place] [address] * Type and Screen (01/16/2025 9:54 AM [...] Organization Address [facility] Co de Phone Number BLOOD BANK [address] [place] [address] * (ABNORMAL) Platelet count (01/16/2025 8:12 AM EDT) Only the most recent of12 resultswithin the time period is included. Platelet Count 39(L) 155 - 369 10*3/uL LAB HEMATOLOGY METHOD 01/16/2025 8:38 AM EDT [facility] Blood Blood sample taken from central line / Unknown Venipuncture / Unknown 01/16/2025 8:12 AM EDT 01/16/2025 8:27 AM EDT Virgen Vargas MD LAB BLOOD ORDERABLES Final Re sult Performing Organization Address City/[facility]/ZIP Co de Phone Number [facility] [address] [place] [address] * (ABNORMAL) CBC W/O Differential (01/16/2025 8:12 AM EDT) Only the most recent of2 resultswithin the time period is included. WBC Count 0.49(LL) 3.70 - 10.30 10*3/uL LAB HEMATOLOGY METHOD 01/16/2025 11:30 AM EDT [facility] RBC Count 2.65(L) 4.60 - 6.10 10*6/uL LAB HEMATOLOGY METHOD 01/16/2025 11:30 AM EDT [facility] HGB 8.0(L) 13.7 - 17.5 g/dL LAB HEMATOLOGY METHOD 01/16/2025 11:30 AM EDT [facility] HCT 23.0(L) 40.0 - 51.0 % LAB HEMATOLOGY METHOD 01/16/2025 11:30 AM EDT [facility] Platelet Count 39(L) 155 - 369 10*3/uL LAB HEMATOLOGY METHOD 01/16/2025 11:30 AM EDT [facility] MCV 87 79 - 98 fL LAB HEMATOLOGY METHOD 01/16/2025 11:30 AM EDT [facility] MCH 30.2 26.0 - 32.0 pg LAB HEMATOLOGY METHOD 01/16/2025 11:30 AM EDT [facility] MCHC 34.8 30.7 - 35.5 g/dL LAB HEMATOLOGY METHOD 01/16/2025 11:30 AM EDT [facility] RDW 14.5 11.5 - 14.5 % LAB HEMATOLOGY METHOD 01/16/2025 11:30 AM EDT [facility] MPV 10.2 8.8 - 12.5 fL LAB HEMATOLOGY METHOD 01/16/2025 11:30 AM EDT [facility] nRBC 0.0 <=0.0 per 100 WBCs LAB HEMATOLOGY METHOD 01/16/2025 11:30 AM EDT [facility] Blood Blood sample taken from central line / Unknown Venipuncture / Unknown 01/16/2025 8:12 AM EDT 01/16/2025 8:27 AM EDT us Virgen Vargas MD LAB BLOOD ORDERABLES Final Re sult [facility] [address] [place] [address] * Transfuse platelets (01/15/2025 10:55 AM EDT) Only the most recent of13 resultswithin the time period is included. Kayli CHIU BLOOD TRANSFUSION ORDERA BLES Final Result * Exception to Standard Practice, Pathologist Interpretation (01/15/2025 10:08 AM EDT) Only the most recent of12 resultswithin the time period is included. Clinical [...] ORDERAB LES Final Result BLOOD BANK [address] [place] [address], * Prepare Leukocyte Reduced Platelets: 1 Units (01/15/2025 9:55 AM EDT) Only the most recent of14 resultswithin the time period is included. Product Code W3730E53 BLOO D BANK Dispense Status Transfused BLOOD BANK Blood Expiration Date [id number] BLOOD BANK Unit Number [id number] CH B LOOD BANK Product Blood Type 6200 BLOOD BANK Blood Type A+ BLOOD BANK Blood Venous blood specimen / Unknown Kayli HCIU BLOOD BANK PRODUCT ORDER VIKAS Final Result Performing Organization Address City/[facility]/ZIP Co de Phone Number BLOOD BANK [address] * (ABNORMAL) Uric acid (01/15/2025 8:17 AM EDT) Only the most recent of3 resultswithin the time period is included. Uric Acid, Plasma 3.0(L) 3.7 - 8.0 mg/dL 01/15/2025 9:19 AM EDT [facility] Blood Blood sample taken from central line / Unknown (Port) Long-term Catheter / Unknown 01/15/2025 8:17 AM EDT 01/15/2025 8:47 AM EDT Virgen Vargas MD LAB BLOOD ORDERABLES Final Re sult Performing Organization Address [facility] Co de Phone Number [facility] [address] [place] [address] * Phosphorus (01/15/2025 8:17 AM EDT) Only the most recent of3 resultswithin the time period is included. Phosphorus, Plasma 3.1 2.5 - 4.5 mg/dL 01/15/2025 9:19 AM EDT [facility] Blood Blood sample taken from central line / Unknown (Port) Long-term Catheter / Unknown 01/15/2025 8:17 AM EDT 01/15/2025 8:47 AM EDT Virgen Vargas MD LAB BLOOD ORDERABLES Final Re sult Performing Organization Address City/[facility]/ZIP Co de Phone Number [facility] [address] [place] [address] * Magnesium (01/15/2025 8:17 AM EDT) Only the most recent of3 resultswithin the time period is included. Magnesium, Plasma 2.2 1.9 - 2.4 mg/dL 01/15/2025 9:19 AM EDT [facility] Blood Blood sample taken from central line / Unknown (Port) Long-term Catheter / Unknown 01/15/2025 8:17 AM EDT 01/15/2025 8:47 AM EDT Virgen Vargas MD LAB BLOOD ORDERABLES Final Re sult Performing Organization Address [facility] Co de Phone Number [facility] [address] [place] [address] * LACTATE DEHYDROGENASE (01/15/2025 8:17 AM EDT) Only the most recent of3 resultswithin the time period is included. LDH, Plasma 192 116 - 250 U/L 01/15/2025 9:19 AM EDT [facility] Blood Blood sample taken from central line / Unknown (Port) Long-term Catheter / Unknown 01/15/2025 8:17 AM EDT 01/15/2025 8:47 AM EDT Virgen Vargas MD LAB BLOOD ORDERABLES Final Re sult Performing Organization Address City/[facility] Co de Phone Number [facility] [address] [place] [address] * (ABNORMAL) BASIC METABOLIC PANEL (01/15/2025 8:17 AM EDT) Only the most recent of2 [...] sult [facility] [address] [place] [address] * (ABNORMAL) Comprehensive Metabolic Panel, Plasma (01/13/2025 [...] ult [facility] [address] [place] [address] * BIOPSY BONE MARROW (01/06/2025 10:00 AM EDT) Narrative Kierra Novak APRN - 01/06/2025 10:00 AM EDT Kierra Novak APRN 01/06/2025 10:24 AM Biopsy bone marrow Date/Time: 01/06/2025 10:00 AM Performed by: Kierra Novak APRN Authorized by: Kierra Novak APRN Consent: Consent obtained: Written Consent given by: Patient Risks, benefits, and alternatives were discussed: yes Risks discussed: Bleeding, infection and pain Clio protocol: Procedure explained and questions answered to [...] Clinical Indication AML 01/07/2025 10:18 AM EDT [facility] Flow Cytometry Interpretation APPROXIMATELY 16% MYELOID BLASTS; EXPRESSING CD34, CD117, CD13, CD33, HLA-DR, PARTIAL CD7, PARTIAL CD123, VARIABLE CD38, AND MODERATE CD45, SEE COMMENT, BONE MARROW ASPIRATE. 01/07/2025 10:18 AM EDT [facility] Comments Specimen viability [...] disease. Final interpretation requires morphologic correlation (BM [id number]). The following antibodies were used in this analysis: CD45, CD2, CD3, CD4, CD5, CD7, CD8, CD10, CD13, CD14, CD15, CD16, CD19, CD20, CD33, CD34, CD38, CD56, CD117, HLA-DR, kappa surface light chains, lambda surface light chains, CD123 01/07/2025 10:18 AM EDT [facility] Disclaimer This test was developed [...] clinical laboratory testing. 01/07/2025 10:18 AM EDT [facility] Pathologist Signature Reviewed by: Tessie Peralta MD 01/07/2025 10:18 AM EDT [facility] MRD Indicated Test Not Indicated 10:18 AM EDT [facility] Bone Marrow Specimen from bone marrow obtained by aspiration / Unknown Non-blood Collection / Unknown 01/06/2025 9:48 AM EDT 01/06/2025 11:20 AM EDT us Virgen Vargas MD LAB FLOW CYTOMETRY ORDERABLES Final Result [facility] [address] [place] [address] * Bone marrow exam (01/06/2025 9:48 AM EDT) Only the most recent of3 resultswithin the time period is included. Case Report Bone Marrow Case: [id number] Authorizing Provider: Virgen Vargas MD Collected: 01/06/2025 0948 Ordering Location: [facility] Hematology/BMT and Received: 01/06/2025 1108 Cellular Therapy Program Pathologist: Tessie Peralta MD Specimens: A) - Bone Marrow Aspirate, left B) - Bone Marrow Biopsy, left C) - Peripheral Blood for Bone Marrow 6:13 PM EDT [facility] Final Diagnosis BONE MARROW, LEFT POSTERIOR ILIAC CREST, (PERIPHERAL SMEAR, ASPIRATE SMEARS, AND CORE BIOPSY): - MILDLY HYPOCELLULAR BONE MARROW WITH ERYTHROID HYPERPLASIA, MARKEDLY REDUCED GRANULOPOIESIS, PERSISTENT DYSPOIESIS AND 10% BLASTS, SEE COMMENT. 6:13 PM EDT [facility] at 1813 EDT Comment The marrow cellularity is composed of erythroid cells with markedly reduced granulopoiesis and decreased megakaryocytes. Persistent trilineage dyspoiesis is noted. The blast percentages are higher by flow cytometry analysis as the majority of marrow cellularity consists of erythroid precursors that are removed by flow cytometry. 6:13 PM EDT [facility] Clinical Information AML 12/22 6:13 PM EDT [facility] CBC and Differential [...] blasts are identified. 5 6:13 PM EDT [facility] Bone Marrow Differential BONE MARROW DIFFERENTIAL: 400 cells Normal Patient Neutrophils 15-50 0 Metamyelocytes 4-19 1 Myelocytes 1-18 2 Promyelocytes 1-8 1 Blasts 0-2 10 Monocytes 0-5 0 Erythroid 16-38 73 Lymphocytes 3-24 4 Eosinophils 0-6 1 Basophils 0-2 0 Plasma cells 0-4 8 Other 5 6:13 PM EDT [facility] Bone Marrow Aspirate and Biopsy Core biopsy [...] identified. Bone trabeculae are unremarkable. 6:13 PM EDT [facility] Special and Immunohistochemical Stains Immunohistochemica l [...] by and are performed at the [facility], [address] [place] [address]. All tests reported here, except those addressing [...] false negativity on decalcified specimens. 6:13 PM EDT [facility] Flow Cytometry Interpretation APPROXIMATELY 16% MYELOID BLASTS; EXPRESSING CD34, CD117, CD13, CD33, HLA-DR, PARTIAL CD7, PARTIAL CD123, VARIABLE CD38, AND MODERATE CD45, SEE COMMENT, BONE MARROW ASPIRATE ([id number]) 6:13 PM EDT [facility] Gross Description B. LEFT A single specimen is received in formalin labeled bone marrow biopsy left posterior iliac crest and consists of 2 piece(s) of tissue measuring 0.8/0.2 cm in length 0.2 cm in diameter. The specimen is submitted in to Histology for decalcification and routine processing. Cold Time: <1m 6:13 PM T [facility] Note: A resident was involved in the service. I attest I examined the relevant preparations for the specimens and confirmed the diagnosis or interpretation. 5 6:13 PM T [facility] Bone Marrow Peripheral [...] ORDERABLES Terri l Result Performing Organization Address [facility]/ZIP Co de Phone Number [facility] [address] [place] [address] * Group A Streptococcus by PCR (12/16/2024 9:40 AM EDT) Group A Streptococcus PCR Result Not Detected Not Detected 12/16/2024 11:53 AM EDT [facility] Swab Pharyngeal structure / Unknown Non-blood Collection / Unknown 12/16/2024 9:40 AM EDT 12/16/2024 10:10 AM EDT Isaura Wynn APRN LAB MICROBIOLOGY - GENERAL ORD ERABLES Final Result Performing Organization Address [facility] de Phone Number [facility] [address] [place] [address] * Streptococcus Culture (12/16/2024 9:40 AM EDT) Culture Reading Strep A No Streptococcus pyogenes or Streptococcus dysgalactiae isolated 12/17/2024 2:28 PM EDT [facility] Swab Pharyngeal structure / Unknown Non-blood Collection / Unknown 12/16/2024 9:40 AM EDT 12/16/2024 10:10 AM EDT Isaura Wynn APRN LAB MICROBIOLOGY - GENERAL ORD ERABLES Final Result Performing Organization Address [facility] Co de Phone Number [facility] [address] [place] [address] * Morphology (12/11/2024 8:38 AM EDT) Only the most recent of5 resultswithin the time period is included. Elliptocytes/ Ovalocytes Present LAB HEMATOLOGY METHOD 12/11/2024 10:53 AM EDT [facility] RBC Morphology Slide Reviewed LAB HEMATOLOGY METHOD 12/11/2024 10:53 AM EDT [facility] Platelet Estimate Platelet smear estimate consistent with automated count LAB HEMATOLOGY METHOD 12/11/2024 10:53 AM EDT [facility] Blood Venous blood specimen / Unknown Venipuncture / Unknown 12/11/2024 8:38 AM EDT 12/11/2024 8:50 AM EDT us Virgen Vargas MD LAB BLOOD ORDERABLES Final Re sult [facility] [address] [place] [id number] * (ABNORMAL) Manual Differential (12/11/2024 8:38 AM EDT) Only the most recent of3 resultswithin the time period is included. Blasts % 1 % LAB HEMATOLOGY METHOD 12/11/2024 10:53 AM EDT [facility] Promyelocytes % 0 % LAB HEMATOLOGY METHOD 12/11/2024 10:53 AM EDT [facility] Myelocytes % 0 % LAB HEMATOLOGY METHOD 12/11/2024 10:53 AM EDT [facility] Metamyelocytes % 0 % LAB HEMATOLOGY METHOD 12/11/2024 10:53 AM EDT [facility] Neutrophils % 4 % LAB HEMATOLOGY METHOD 12/11/2024 10:53 AM EDT [facility] Lymphocytes % 90 % LAB HEMATOLOGY METHOD 12/11/2024 10:53 AM EDT [facility] Reactive Lymphocytes % 3 % LAB HEMATOLOGY METHOD 12/11/2024 10:53 AM EDT [facility] Monocytes % 2 % LAB HEMATOLOGY METHOD 12/11/2024 10:53 AM EDT [facility] Eosinophils % 0 % LAB HEMATOLOGY METHOD 12/11/2024 10:53 AM EDT [facility] Basophils % 0 % LAB HEMATOLOGY METHOD 12/11/2024 10:53 AM EDT [facility] Blasts Absolute 0.01 10*3/UL LAB HEMATOLOGY METHOD 12/11/2024 10:53 AM EDT [facility] Promyelocytes Absolute 0.00 10*3/uL LAB HEMATOLOGY METHOD 12/11/2024 10:53 AM EDT [facility] Myelocytes Absolute 0.00 10*3/uL LAB HEMATOLOGY METHOD 12/11/2024 10:53 AM EDT [facility] Metamyelocytes Absolute 0.00 10*3/uL LAB HEMATOLOGY METHOD 12/11/2024 10:53 AM EDT [facility] Neutrophils Absolute 0.02(LL) 1.60 - 6.10 10*3/uL LAB HEMATOLOGY METHOD 12/11/2024 10:53 AM EDT [facility] Lymphocytes Absolute 0.55(L) 1.20 - 3.90 10*3/uL LAB HEMATOLOGY METHOD 12/11/2024 10:53 AM EDT [facility] Reactive Lymphocytes Absolute 0.02 10*3/uL LAB HEMATOLOGY METHOD 12/11/2024 10:53 AM EDT [facility] Monocytes Absolute 0.01(L) 0.30 - 0.90 10*3/uL LAB HEMATOLOGY METHOD 12/11/2024 10:53 AM EDT [facility] Eosinophils Absolute 0.00 0.00 - 0.50 10*3/uL LAB HEMATOLOGY METHOD 12/11/2024 10:53 AM EDT [facility] Basophils Absolute 0.00 0.00 - 0.10 10*3/uL LAB HEMATOLOGY METHOD 12/11/2024 10:53 AM EDT [facility] Blood Venous blood specimen / Unknown Venipuncture / Unknown 12/11/2024 8:38 AM EDT 12/11/2024 8:50 AM EDT us Virgen Vargas MD LAB BLOOD ORDERABLES Final Re sult [facility] [address] [place] [address] * Peripheral blood smear, pathologist interpretation (12/11/2024 8:38 AM EDT) Only the most recent of3 resultswithin the time period is included. Clinical Diagnosis, Peripheral Smear History of acute myeloid leukemia (recent bone marrow dated 12/09/2024 with 14% blasts) LAB HEMATOLOGY METHOD 12/11/2024 4:46 PM EDT [facility] Interpretation , Peripheral Smear Marked leukopenia with neutropenia and 1% circulating blasts. Dysplastic neutrophils (hypogranular) are noted. Moderate anemia and marked thrombocytopen ia. 12/11/2024 4:46 PM EDT [facility] Pathologist Signature, Peripheral Smear 12/11/2024 4:46 PM EDT [facility] Comment:Reviewed by: Omar Peralta MD Blood Venous blood specimen / Unknown Venipuncture / Unknown 12/11/2024 8:38 AM EDT 12/11/2024 8:50 AM EDT Virgen Vargas MD LAB PATHOLOGY ORDERABLES Terri lara Result [facility] [address] [place] [address] * Chromosome Karyotype, Oncology (12/09/2024 10:15 AM EDT) Only the most recent of2 resultswithin the time period is included. Specimen Type Bone Marrow 12/16/2024 5:59 PM EDT [facility] Clinical Indication Acute Myeloid Leukemia 12/16/2024 5:59 PM EDT [facility] Specimen Adequacy Adequate 025 5:59 PM EDT [facility] Chromosome Analysis Result Giemsa-banded metaphase cells from unstimulated bone marrow cultures showed the following chromosome pattern: 43~45,X,-Y,t(4;1 4)(q21;q32),add( 5)(q13),add(16)( q11.2),-17,add(2 0)(q11.2)[cp13]/ 46,XY[7] 12/16/2024 5:59 PM EDT [facility] Interpretation Abnormal male [...] were observed on this patient's previous specimen [id number] and indicate persistent disease. Clinical correlation is recommended. Note: Per [employer] (CAP) requirement additional karyotypes were performed and charged due to the presence of clonal abnormalities. # cells counted = 20 # cells analyzed = 20 # cells karyotyped = 3 Band resolution: 400 12/16/2024 5:59 PM EDT [facility] Pathologist Signature Reviewed by: Mesfin aRe 12/16/2024 5:59 PM EDT [facility] Bone Marrow Non-blood Collection / Unknown 12/09/2024 10:15 AM EDT 12/09/2024 12:48 PM EDT us Virgen Vargas MD LAB CYTOGENETICS ORDERABLES F inal Result [facility] [address] [place] [address] * BIOPSY BONE MARROW (12/09/2024 10:00 AM EDT) Narrative Kierra Novak APRN - 12/09/2024 10:00 AM EDT Kierra Novak APRN 12/09/2024 12:08 PM Biopsy bone marrow Date/Time: 12/09/2024 10:00 AM Performed by: Kierra Novak APRN Authorized by: Kierra Novak APRN Consent: Consent obtained: Written Consent given by: Patient Risks, benefits, and alternatives were discussed: yes Risks discussed: Bleeding, infection and pain Clio protocol: Procedure explained and questions answered to [...] well, no immediate complications us Kierra Novak MAINFRAME DEVELOPER IN CLINIC/BEDSIDE ORDERAB LES Final Result * [...] for port placement. New AML, starting chemotherapy. Certified Personal Trainer: Mckinley Lee MD Secondary Scientist: Dr. David Holt Rad Dose: 6 mGy [...] was placed supine on the fluoro table. Director Of Security ultrasonography revealed the vein to be compressible [...] with no evidence of complication. Device: 6 Iraqi port catheter cut to length of 25 cm. COMPARISON: None. FINDINGS: Patent R IJV COMPLICATION: No. Procedure Note Mckinley Lee MD - 12/02/2024 CLINICAL INDICATION: 69M here for port placement. New AML, starting chemotherapy. Certified Personal Trainer: Mckinley Lee MD Secondary Scientist: Dr. David Holt Rad Dose: 6 mGy [...] patient was placed supine on the fluoro table.Director Of Security ultrasonography revealed the vein to be compressible [...] well with no evidence ofcomplication. Device: 6 [place] port catheter cut to length of 25 [...] MD on 12/02/2024 7:02 AM Isaura Wynn MAINFRAME DEVELOPER IMG IR PROCEDURES Final Result * (ABNORMAL) WBC Differential (12/01/2024 9:39 AM EDT) Differential Type Automated LAB HEMATOLOGY METHOD 12/01/2024 11:33 AM EDT [facility] Neutrophils % 9 % LAB HEMATOLOGY METHOD 12/01/2024 11:33 AM EDT [facility] Lymphocytes % 84 % LAB HEMATOLOGY METHOD 12/01/2024 11:33 AM EDT [facility] Monocytes % 6 % LAB HEMATOLOGY METHOD 12/01/2024 11:33 AM EDT [facility] Eosinophils % 1 % LAB HEMATOLOGY METHOD 12/01/2024 11:33 AM EDT [facility] Basophils % 0 % LAB HEMATOLOGY METHOD 12/01/2024 11:33 AM EDT [facility] Immature Granulocytes % 0 % LAB HEMATOLOGY METHOD 12/01/2024 11:33 AM EDT [facility] Immature Granulocytes Absolute 0.00 0.00 - 0.06 10*3/uL LAB HEMATOLOGY METHOD 12/01/2024 11:33 AM EDT [facility] Neutrophils Absolute 0.06(LL) 1.60 - 6.10 10*3/uL LAB HEMATOLOGY METHOD 12/01/2024 11:33 AM EDT [facility] Lymphocytes Absolute 0.59(L) 1.20 - 3.90 10*3/uL LAB HEMATOLOGY METHOD 12/01/2024 11:33 AM EDT [facility] Monocytes Absolute 0.04(L) 0.30 - 0.90 10*3/uL LAB HEMATOLOGY METHOD 12/01/2024 11:33 AM EDT [facility] Basophils Absolute 0.00 0.00 - 0.10 10*3/uL LAB HEMATOLOGY METHOD 12/01/2024 11:33 AM EDT [facility] Eosinophils Absolute 0.01 0.00 - 0.50 10*3/uL LAB HEMATOLOGY METHOD 12/01/2024 11:33 AM EDT [facility] Blood Venous blood specimen / Unknown Venipuncture / Unknown 12/01/2024 9:39 AM EDT 12/01/2024 9:56 AM EDT us Virgen Vargas MD LAB BLOOD ORDERABLES Final Re sult Performing Organization Address [facility] de Phone Number [facility] [address] [place] [address] * Protime-INR (11/26/2024 10:51 AM EDT) Pathologist [facility] Prothrombin Time 13.8 12.0 - 14.3 sec LAB COAGULATION METHOD 11/26/2024 11:52 AM EDT [facility] INR 1.1 0.9 - 1.1 LAB COAGULATION METHOD 11/26/2024 11:52 AM EDT [facility] Blood Venous blood specimen / Unknown Venipuncture / Unknown 11/26/2024 10:51 AM EDT 11/26/2024 10:51 AM EDT Narrative [facility] - 11/26/2024 11:52 AM EDT OPTIMAL INR RANGES FOR PATIENT ON ORAL ANTICOAGULANT THERAPY Prevention of venous thromboembolism INR 2.0 to 3.0 In patients with heart disease: Atrial fibrillation INR 2.0 to 3.0 Valvular heart disease INR 2.0 to 3.0 Tissue heart valves INR 2.0 to 3.0 Mechanical prosthetic valves INR 2.5 to 3.5 Prevention of recurrent PR INR 2.5 to 3.5 us Latoya Nunez APRN LAB BLOOD ORDERABLES Final R esult Performing Organization Address City/State/[facility] Co de Phone Number [facility] [address] [place] [address] * BIOPSY BONE MARROW (11/10/2024 2:00 PM [...] - 899 pg/mL 11/05/2024 11:49 AM EDT [facility] Blood Venous blood specimen / Unknown Venipuncture / Unknown 11/05/2024 11:01 AM EDT 11/05/2024 11:21 AM EDT us Elsa Razo MAINFRAME DEVELOPER LAB BLOOD ORDERABLES Fin al Result Performing Organization Address [facility] Co de Phone Number [facility] [address] [place] [address] * ECG Adult (Now - Performed in your clinic) (11/05/2024 10:10 AM EDT) Only the most recent of2 resultswithin the time period is included. EKG DIAGNOSIS CLASS Normal MUSE ECG Ventricular Rate 71 BPM MUSE ECG Atrial Rate 71 BPM MUSE ECG RI Interval 154 ms MUSE ECG QRSD Interval 80 ms MUSE ECG QT Interval 404 ms MUSE ECG QTC Interval 439 ms MUSE ECG P [place] 45 degrees MUSE ECG R [place] 15 degrees MUSE ECG T Wave [place] 42 degrees MUSE ECG Diagnosis Normal sinus rhythm MUSE ECG Diagnosis Normal ECG MUSE ECG Diagnosis MUSE ECG Diagnosis Confirmed by Orestes Stone ([id number]) on 11/05/2024 10:19:58 AM MUSE ECG 11/05/2024 10:1 0 AM EDT 11/05/2024 10:19 AM EDT us Elsa Marquis Razo MAINFRAME DEVELOPER ECG ORDERABLES Final Re sult MUSE ECG * Urine Rcoss Panel (11/03/2024 4:05 PM EDT) Extra Reflex urine culture not indicated 11/04/2024 2:02 AM EDT [facility] Comment: Previously prelim [...] MD LAB URINE ORDERABLES Final R esult [facility] [address] [place] [address] * (ABNORMAL) Urinalysis with reflex microscopic (Culture NOT Included) (11/03/2024 4:05 PM EDT) Color, Urine Yellow LAB URINALYSIS - AUTOMATED METHOD 11/03/2024 4:23 PM EDT [facility] Clarity, Urine Clear LAB URINALYSIS - AUTOMATED METHOD 11/03/2024 4:23 PM EDT [facility] Spec [place], Urine 1.018 1.005 - 1.030 LAB URINALYSIS - AUTOMATED METHOD 11/03/2024 4:23 PM EDT [facility] pH, Urine 6.5 5.0 - 8.0 LAB URINALYSIS - AUTOMATED METHOD 11/03/2024 4:23 PM EDT [facility] Protein, Urine 30(A) Negative mg/dL LAB URINALYSIS - AUTOMATED METHOD 11/03/2024 4:23 PM EDT [facility] Glucose, Urine Negative Negative mg/dL LAB URINALYSIS - AUTOMATED METHOD 11/03/2024 4:23 PM EDT [facility] Ketones, Urine Negative Negative mg/dL LAB URINALYSIS - AUTOMATED METHOD 11/03/2024 4:23 PM EDT [facility] Blood, Urine Negative Negative LAB URINALYSIS - AUTOMATED METHOD 11/03/2024 4:23 PM EDT [facility] Bilirubin, Urine Negative Negative LAB URINALYSIS - AUTOMATED METHOD 11/03/2024 4:23 PM EDT [facility] Urobilinogen, Urine 2.0(A) 0.2 to 1.0 mg/dL LAB URINALYSIS - AUTOMATED METHOD 11/03/2024 4:23 PM EDT [facility] Leukocytes, Urine Negative Negative LAB URINALYSIS - AUTOMATED METHOD 11/03/2024 4:23 PM EDT [facility] Nitrite, Urine Negative Negative LAB URINALYSIS - AUTOMATED METHOD 11/03/2024 4:23 PM EDT [facility] Urine Urine specimen obtained by clean catch procedure / Unknown Non-blood Collection / Unknown 11/03/2024 4:05 PM EDT 11/03/2024 4:17 PM EDT us Tati Fam MD LAB URINE ORDERABLES Final R esult [facility] [address] [place] [address] * CT Head wo IV Contrast (11/03/2024 [...] Beny Ricketts MD on 11/03/2024 4:09 PM Tati Fam MD IMG CT PROCEDURES Final Resu lt * Blood Culture (Aerobic/Anaerobet Set) (11/03/2024 3:24 PM EDT) Only the most recent of2 resultswithin the time period is included. Culture No growth at day 5 11/08/2024 4:01 PM EDT [facility] Blood Structure of antecubital vein / Unknown Venipuncture / Unknown 11/03/2024 3:24 PM EDT 11/03/2024 3:47 PM EDT Narrative [facility] - 11/08/2024 4:01 PM EDT Low blood volume submitted, results may be compromised Tati Fam MD LAB MICROBIOLOGY - GENERAL O RDERABLES Final Result [facility] [address] [place] [address] * XR Chest 1 View (11/03/2024 3:00 [...] for all analytes 11/03/2024 5:17 PM EDT [facility] Swab Nasopharyngeal structure / Unknown Non-blood Collection / Unknown 11/03/2024 2:59 PM EDT 11/03/2024 3:17 PM EDT Narrative [facility] - 11/03/2024 5:17 [...] Respiratory PCR Panel is performed using the [employer] e[employer] instrument. This test is FDA approved for use with Nasopharyngeal swabs only. This test is used for clinical purposes. It should not be regarded as investigational or for research. The [facility] is certified under the Clinical Laboratory Improvement Amendments of 1988 (CLIA-88) as qualified to perform high complexity clinical laboratory testing. Tati Fam MD LAB MICROBIOLOGY - GENERAL O RDERABLES Final Result [facility] [address] [place] [address] * Lactic acid, venous (11/03/2024 2:25 PM EDT) Lactate, Venous, Whole Blood 0.9 0.5 - 2.2 mmol/L LAB HEMATOLOGY METHOD 11/03/2024 2:38 PM EDT [facility] Blood Venous blood specimen / Unknown Venipuncture / Unknown 11/03/2024 2:25 PM EDT 11/03/2024 2:36 PM EDT us Tati Fam MD LAB BLOOD ORDERABLES Final R esult [facility] [address] [place] [address] * Hepatitis C Antibody w/Reflex to HCV Quant PCR (09/29/2024 12:51 PM EDT) Hepatitis C Antibody Negative Negative 09/29/2024 2:06 PM EDT [facility] Blood Venous blood specimen / Unknown Venipuncture / Unknown 09/29/2024 12:51 PM EDT 09/29/2024 1:22 PM EDT us Virgen Vargas MD LAB BLOOD ORDERABLES Final Re sult [facility] [address] [place] [address] from Last 3 Months or Most Recently Relevant to Health Maintenance Insurance [facility] MEDICARE Care Teams Traffic Supervisor Relationship Specialty Start Date End Date Zhao Harris MD [address] [place] [facility] [address] [place] [address] [facility] - General 12/03/20
--- OUTSIDE RECORDS SUMMARY | 2025-01-22 08:16 | XMS_ITS | Encounter Summary ---
Author Organization [facility] Address [address] [place] [address] Care Team Providers Care Pre Sales Systems Engineer Name Role Phone Zhao Harris MD Primary Care Provider [phone] Reason for Visit * Reason Onset Date Comments Distress Screen Follow-up 11/25/2024 Encounter Details Date Type Department Care Team (Late st Contact Info) Description 11/25/2024 Telephone [facility] CC Hematology/BMT and Cellular Therapy Program [address] [place] [address] [place] [address] Michelle Mast Distress Screen Follow-up Social History [...] drink first t manav in the morning (EYE-REFRACTORY REPAIRER) to steady your nerves or to [...] Appointment P[facility] A Interventional Radiology [address] [place] [address] Hussain Calles, RN 02/10/2025 8:30 AM EDT Clinical Support P[facility] Hematology/BMT and Cellular Therapy Program [address] [address] 02/10/2025 9:00 AM EDT Office Visit [facility] Hematology/BMT and Cellular Therapy Program [address] [address] Elaina Boss PA 800 [facility] [address] [place] [address] 02/10/2025 10:30 AM EDT Appointment [facility] 1 [address] [place] [address] 02/11/2025 2:00 PM EDT Appointment [facility] 1 [address] [place] [address] 02/12/2025 2:00 PM EDT Appointment [facility] 1 [address] [place] [address] 02/13/2025 2:00 PM EDT Appointment [facility] 1 [address] [place] [address] 02/14/2025 2:00 PM EDT Appointment [facility] 1 [address] [place] [address] 03/10/2025 8:30 AM EDT Clinical Support [facility] CC Hematology/BMT and Cellular Therapy Program [address] [address] 03/10/2025 9:00 AM EDT Office Visit PAV Hematology/BMT and Cellular Therapy Program [address] [address] Isaura Wynn, DAY CARE ATTENDANT 800 [facility] [address] [place] [phone] 03/10/2025 11:20 AM EDT Office Visit Pav CC Head, Neck & Respiratory 800 [facility], 2nd [place] [address] Elsa Razo, DAY CARE ATTENDANT [address] [place] [phone] documented as of this encounter Visit Diagnoses [...] as of this encounter Care Teams Pre Sales Systems Engineer Relationship Specialty Start Date End Date Zhao Harris MD [address] [address] PCP - General 12/03/20 documented as of this encounter
--- OUTSIDE RECORDS SUMMARY | 2025-01-22 08:17 | XMS_ITS | Encounter Summary ---
Author Organization [facility] Address [address] 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, unspecified vessel or [...] Appointment [facility] A Interventional Radiology [address] [place] [address] Hussain Calles RN 02/10/2025 8:30 AM EDT Clinical Support [facility] CC Hematology/BMT and Cellular Therapy Program 750 [facility] [place] [address] 02/10/2025 9:00 AM EDT Office Visit PAV Hematology/BMT and Cellular Therapy Program [address] [phone] Elaina Boss, PA 800 [facility] [address] [place] [address] 02/10/2025 10:30 AM EDT Appointment [facility] 1 [address] [place] [address] 02/11/2025 2:00 PM EDT Appointment [facility] 1 [address] [place] [address] 02/12/2025 2:00 PM EDT Appointment [facility] 1 [address] [place] [address] 02/13/2025 2:00 PM EDT Appointment [facility] 1 [address] [place] [address] 02/14/2025 2:00 PM EDT Appointment [facility] 1 [address] [place] [address] 03/10/2025 8:30 AM EDT Clinical Support [facility] Hematology/BMT and Cellular Therapy Program [address] [phone] 03/10/2025 9:00 AM EDT Office Visit [facility] Hematology/BMT and Cellular Therapy Program [address] [address] Isaura Wynn, BROADCAST DESIGNER 800 [facility] [address] [place] [address] 03/10/2025 11:20 AM EDT Office Visit Pav Head, Neck & Respiratory 800 [facility], 2nd [place] [phone] Esla Razo, BROADCAST DESIGNER 800 [place] [address] documented as of this encounter Visit Diagnoses Diagnosis 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
--- OUTSIDE RECORDS SUMMARY | 2025-01-22 08:17 | XMS_ITS | Encounter Summary ---
Author Organization Healthcare Address [address] [place] [address] Care Team Providers Care Grill Attendant Name Role Phone Zhao Harris MD Primary Care Provider [phone] Reason for Visit * Reason Comments Med Refill Encounter Details Date Type Department Care Team ([facility] Contact Info) Description 02/20/2022 Refill [facility] [place] [address] [facility], [address] [place] [address] Regina Hill, ARAM 800 [place] [address] Social History Tobacco Use Types [...] Appointment [facility] A Interventional Radiology [address] [place] [address] Hussain Calles, RN 02/10/2025 8:30 AM EDT Clinical Support [facility] CC Hematology/BMT and Cellular Therapy Program 750 [facility] Fl[place] [address] 02/10/2025 9:00 AM EDT Office Visit [facility] CC Hematology/BMT and Cellular Therapy Program [address] [phone] Elaina Boss, ARAM [address] [phone] 02/10/2025 10:30 AM EDT Appointment [facility] 1 [address] [place] [address] 02/11/2025 2:00 PM EDT Appointment [facility] 1 [address] [place] [address] 02/12/2025 2:00 PM EDT Appointment [facility] 1 [address] [place] [address] 02/13/2025 2:00 PM EDT Appointment [facility] 1 [address] [place] [address] 02/14/2025 2:00 PM EDT Appointment [facility] 1 [address] [place] [address] 03/10/2025 8:30 AM EDT Clinical Support [facility] Hematology/BMT and Cellular Therapy Program [address] [phone] 03/10/2025 9:00 AM EDT Office Visit [facility] Hematology/BMT and Cellular Therapy Program [address] [phone] Isaura Wynn, TAKE AWAY ATTENDANT 800 [facility] [address] [phone] 03/10/2025 11:20 AM EDT Office Visit Pav Head, Neck & Respiratory 800 [facility], 2nd [place] [address] Elsa Razo, TAKE AWAY ATTENDANT 800 [place] [address] documented as of this encounter Visit Diagnoses Not on filedocumented in this encounter Additional Health Concerns Infection Onset Date Last Indicated Resolved Time Respiratory Rule-Out 11/03/2024 11/03/2024 025 5:17 PM EDT documented as of this encounter Care Teams Grill Attendant Relationship Specialty Start Date End Date Zhao Harris MD [address] [place] [address] PCP - General 12/03/20 documented as of this encounter
--- NOTE | 2025-01-22 08:18 | PC.NURSE ---
0818-collected labs via venipuncture stick in left ac with butterfly needle;pt to wait on results for possible blood products
[2025-01-22 08:30] LABS: Hematocrit 23.3 % (42.0-52.0); Hemoglobin 8.1 g/dL (14.1-18.0); Immature Granulocytes % 0 %; Mean Corpuscular HGB Conc 34.8 g/dL (31.8-35.4); Mean Corpuscular Hemoglobin 28.9 pg (27.0-31.2); Mean Corpuscular Volume 83.2 fl (80-94); Nucleated Red Blood Cells % 0 %; Red Blood Count 2.80 M/mm3 (4.60-6.20); Red Cell Distribution Width-SD 41.4 fL
[2025-01-22 08:34] LABS: Platelet Count 27 K/mm3 (142-424); White Blood Count 0.5 K/mm3 (4.8-10.8)
[2025-01-22 08:44] LABS: Alanine Aminotransferase 32 U/L (12-78); Albumin Level 4.2 g/dl (3.5-5.0); Albumin/Globulin Ratio 1.4 (1.1-1.8); Alkaline Phosphatase 92 U/L (38-126); Anion Gap 14.0 mEq/L (5-15); Aspartate Amino Transferase 29 U/L (17-59); Bilirubin,Total 0.7 mg/dl (0.2-1.3); Blood Urea Nitrogen 18 mg/dl (9-20); Calcium 9.5 mg/dl (8.4-10.2); Carbon Dioxide 22 mmol/L (22.0-30.0); Chloride 106 mmol/L (98-107); Creatinine,Serum 0.90 mg/dl (0.66-1.25); Estimated Glomerular Filt Rate 84 ml/min (>60); GFR (African American) 101 ML/MIN (>60); Globulin 3.0 g/dL (1.3-3.2); Glucose 118 mg/dl (74-100); Potassium 4.0 mmoL/L (3.5-5.1); Sodium 138 mmol/L (136-145); Total Protein,Serum 7.2 g/dl (6.3-8.2)
[2025-01-22 09:16] LABS: Total Cells Counted 25
[2025-01-22 09:17] LABS: RBC Morphology Normal
== END 2025-01-22 08:40 | disposition home or self-care (01) ==
LOC: INF 08:11
PROVIDERS: PCP Family Medicine; Visit Provider Internal Medicine Medical Oncology
DX: D64.9 Anemia, unspecified (principal)
CPT/HCPCS: 36415; 80053; 85007; 85025; 85027

== ENCOUNTER 2025-01-26 08:18 | Outpatient (CLI) | payer MEDICARE, SELFPAY ==
--- OUTSIDE RECORDS SUMMARY | 2024-12-01 08:41 | XMS_ITS | Encounter Summary ---
Author Organization [facility] Address [address] [place] [address] Care Team Providers Care Thread Machine Operator Name Role Phone Zhao Harris MD Primary Care Provider [phone] Reason for Referral * Consultation (Routine) - Closed Specialty Diagnoses / Procedures Referred By Contact Referred To Contact Interventional Radiology Diagnoses Myelodysplasia (myelodysplastic syndrome) (CMS/HCC) Mckinley Lee MD [address] [place] [address] Phone: tel:[phone] fax: [facility] Vascular Interventional Radiology [address] [place] [address] Phone: tel: Referral ID Status Reason Start Date Expiration Date V isits Requested Visits Authorized [id number] Closed Specialty Services Required 12/01/2024 06/02/2026 1 1 * Imaging (Routine) - Closed Specialty Diagnoses / Procedures Referred By Justice mcgee Referred To Contact Radiology Diagnoses Myelodysplasia (myelodysplastic syndrome) (CMS/HCC) Procedures IR Port Placement 5+ Years Consult to Interventional Radiology Isaura Wynn APRN 800 [facility] [address] [place] [address] Phone: tel: fax: Referral ID Status Reason Start Date Expiration Date Visits Re quested Visits Authorized [id number] Closed 11/18/2024 05/20/2026 1 1 Reason for Visit * Imaging (Routine) - Closed Specialty Diagnoses / Procedures Referred By Justice mcgee Referred To Contact Radiology Diagnoses Myelodysplasia (myelodysplastic syndrome) (CMS/HCC) Procedures IR Port Placement 5+ Years Consult to Interventional Radiology Isaura Wynn APRN 800 [facility] [address] [place] [address] Phone: tel: fax: Referral ID Status Reason Start Date Expiration Date Visits Re quested Visits Authorized [id number] Closed 11/18/2024 05/20/2026 1 1 Encounter Details Date Type Department Care Team (Latest Contact Info) Description 12/01/2024 8:41 AM EDT - 12/01/2024 11:59 PM EDT Hospital Encounter [facility] A Interventional Radiology [address] [place] [address] Gela Singer Thrombocytopenia (CMS/HCC) (Primary Dx); Myelodysplasia [...] drink first t manav in the morning (EYE-DISPUTE RESOLUTION SPECIALIST) to steady your nerves or to get [...] call: Vascular & Interventional Radiology Clinic at [phone] Sunday - Sunday 8:00 AM to 4:30 PM After hours, weekends, and holidays please call [phone] and ask for the Interventional Radiology provider/Resident on-call For Emergencies please go to the nearest Emergency Room or dial 911. Intervention Radiology Appointments: If you need to reschedule a procedure, please call our Schedulers at [phone], option 4. If you need to schedule or reschedule a clinic appointment, please call [phone]. [facility] Clinic Vascular and Interventional Radiology Clinic [facility] [address] [place] [address] documented in this encounter Medications at Time of Discharge acyclovir (Zovirax) 800 MG tabletIndications :Myelodysplasia (myelodysplastic syndrome) (CMS/HCC) Take 1 tablet (800 mg) by mouth in the morning and 1 tablet (800 mg) before bedtime. 60 tablet 3 10/14/2024 bisoprolol (Zebeta) 5 MG tabletIndications :Coronary artery disease involving [place] heart with angina pectoris, unspecified vessel or lesion type (CMS/HCC),Hyperte nsion, unspecified type Take 1 tablet (5 mg) by mouth daily. 90 tablet 3 09/11/2024 HYDROcodone-aceta minophen ([place]) 5-325 MG tablet Take 1 tablet by mouth every 6 hours as needed. 11/07/2024 hydrocortisone 2.5 % cream Apply 1 Application topically as needed for rash. 20 g 12/09/2024 levoFLOXacin (Levaquin) 500 MG tabletIndications :Myelodysplasia (myelodysplastic syndrome) (CMS/HCC) Take 1 tablet (500 mg) by mouth daily. 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 Call the [facility] Hematology Program Clinic if this is not set up. ?? What is used to flush it? It will be flushed with NS and Heparin flush. ?? Where will this happen? Either home health will come to you or you will go to the Infusion Center or the [email or web address] Clinic. Here is some contact information about [...] Radiology Brief Postprocedure Note Attending: Dr. Lee Metal Bonder: Dr. Hernandez Pre-operative Diagnosis: AML, need for [...] been discussed with the patient and/or their medical representative. All questions answered and they agree to [...] daily., Disp: 90 tablet, Rfl: 3 HYDROcodone-acetaminophen ([place]) 5-325 MG tablet, Take 1 tablet by [...] Upcoming Encounters Date Type Department Care Team ([facility] st Contact Info) Description 02/02/2025 11:00 AM EDT Appointment P[facility] A Interventional Radiology [address] [place] [address] 02/10/2025 8:30 AM EDT Clinical Support PAV Hematology/BMT and Cellular Therapy Program [address] [address] 02/10/2025 9:00 AM EDT Office Visit PAV Hematology/BMT and Cellular Therapy Program [address] [place] [address] Elaina Boss, ARAM 800 [facility] [address] [address] 02/10/2025 10:30 AM EDT Appointment [facility] Infusion Clinic 1 [address] [place] [address] 02/11/2025 2:00 PM EDT Appointment [facility] Infusion Clinic 1 [address] [place] [address] 02/12/2025 2:00 PM EDT Appointment [facility] Infusion Clinic 1 [address] [place] [address] 02/13/2025 2:00 PM EDT Appointment [facility] Infusion Clinic 1 [address] [place] [address] 02/14/2025 2:00 PM EDT Appointment [facility] Infusion Clinic 1 [address] [place] [address] 03/10/2025 8:30 AM EDT Clinical Support PAV Hematology/BMT and Cellular Therapy Program 750 [facility] [place] [address] 03/10/2025 9:00 AM EDT Office Visit PAV Hematology/BMT and Cellular Therapy Program 750 [facility] [place] [address] Isaura Wynn, TRANSIT CLERK 800 [facility] [address] [place] [address] 03/10/2025 11:20 AM EDT Office Visit Pav Head[facility] Neck [facility] Respiratory 800 [facility], 2nd [place] [address] Elsa Razo, TRANSIT CLERK [address] [place] [address] Scheduled Referrals Name Type Priority Associated Diagnoses Order Schedule Discharge Ambulatory referral to [facility] Clinic Outpatient Referral Routine Myelodysplasia (myelodysplastic syndrome) [...] for port placement. New AML, starting chemotherapy. Cupola Melting Supervisor: Mckinley Lee MD Secondary Manager Clinical Research: Dr. David Holt Rad Dose: 6 mGy [...] was placed supine on the fluoro table. Refractory Products Supervisor ultrasonography revealed the vein to be compressible [...] with no evidence of complication. Device: 6 Mohawk port catheter cut to length of 25 cm. COMPARISON: None. FINDINGS: Patent R IJV COMPLICATION: No. Procedure Note Mckinley Lee MD - 12/02/2024 CLINICAL INDICATION: 69M here for port placement. New AML, starting chemotherapy. Cupola Melting Supervisor: Mckinley Lee MD Secondary Manager Clinical Research: Dr. David Holt Rad Dose: 6 mGy [...] patient was placed supine on the fluoro table.Refractory Products Supervisor ultrasonography revealed the vein to be compressible [...] well with no evidence ofcomplication. Device: 6 [place]awk port catheter cut to length of 25 [...] MD on 12/02/2024 7:02 AM Isaura Wynn TRANSIT CLERK IMG IR PROCEDURES Final Result * Transfuse [...] ORDERAB LES Final Result BLOOD BANK [address] [place] [address], * (ABNORMAL) WBC Differential (12/01/2024 9:39 AM EDT) Differential Type Automated LAB HEMATOLOGY METHOD 12/01/2024 11:33 AM EDT [facility] Neutrophils % 9 % LAB HEMATOLOGY METHOD 12/01/2024 11:33 AM EDT [facility] Lymphocytes % 84 % LAB HEMATOLOGY METHOD 12/01/2024 11:33 AM EDT [facility] Monocytes % 6 % LAB HEMATOLOGY METHOD 12/01/2024 11:33 AM EDT [facility] Eosinophils % 1 % LAB HEMATOLOGY METHOD 12/01/2024 11:33 AM EDT [facility] Basophils % 0 % LAB HEMATOLOGY METHOD 12/01/2024 11:33 AM EDT [facility] Immature Granulocytes % 0 % LAB HEMATOLOGY METHOD 12/01/2024 11:33 AM EDT [facility] Immature Granulocytes Absolute 0.00 0.00 - 0.06 10*3/uL LAB HEMATOLOGY METHOD 12/01/2024 11:33 AM EDT [facility] Neutrophils Absolute 0.06(LL) 1.60 - 6.10 10*3/uL LAB HEMATOLOGY METHOD 12/01/2024 11:33 AM EDT [facility] Lymphocytes Absolute 0.59(L) 1.20 - 3.90 10*3/uL LAB HEMATOLOGY METHOD 12/01/2024 11:33 AM EDT [facility] Monocytes Absolute 0.04(L) 0.30 - 0.90 10*3/uL LAB HEMATOLOGY METHOD 12/01/2024 11:33 AM EDT [facility] Basophils Absolute 0.00 0.00 - 0.10 10*3/uL LAB HEMATOLOGY METHOD 12/01/2024 11:33 AM EDT [facility] Eosinophils Absolute 0.01 0.00 - 0.50 10*3/uL LAB HEMATOLOGY METHOD 12/01/2024 11:33 AM EDT [facility] Blood Venous blood specimen / Unknown Venipuncture / Unknown 12/01/2024 9:39 AM EDT 12/01/2024 9:56 AM EDT us Virgen Vargas MD LAB BLOOD ORDERABLES Final Re sult [facility] [address] [place] [address] * (ABNORMAL) CBC (12/01/2024 9:39 AM EDT) WBC Count 0.64(LL) 3.70 - 10.30 10*3/uL LAB HEMATOLOGY METHOD 12/01/2024 4:21 PM EDT [facility] RBC Count 2.29(L) 4.60 - 6.10 10*6/uL LAB HEMATOLOGY METHOD 12/01/2024 4:21 PM EDT [facility] HGB 7.6(L) 13.7 - 17.5 g/dL LAB HEMATOLOGY METHOD 12/01/2024 4:21 PM EDT [facility] HCT 20.9(L) 40.0 - 51.0 % LAB HEMATOLOGY METHOD 12/01/2024 4:21 PM EDT [facility] Platelet Count 14(LL) 155 - 369 10*3/uL LAB HEMATOLOGY METHOD 12/01/2024 4:21 PM EDT [facility] MCV 91 79 - 98 fL LAB HEMATOLOGY METHOD 12/01/2024 4:21 PM EDT [facility] MCH 33.2(H) 26.0 - 32.0 pg LAB HEMATOLOGY METHOD 12/01/2024 4:21 PM EDT [facility] MCHC 36.4(H) 30.7 - 35.5 g/dL LAB HEMATOLOGY METHOD 12/01/2024 4:21 PM EDT [facility] RDW 17.7(H) 11.5 - 14.5 % LAB HEMATOLOGY METHOD 12/01/2024 4:21 PM EDT [facility] MPV LAB HEMATOLOGY METHOD 12/01/2024 4:21 PM EDT [facility] Comment:Not Measured nRBC 0.0 <=0.0 per 100 WBCs LAB HEMATOLOGY METHOD 12/01/2024 4:21 PM EDT [facility] Blood Venous blood specimen / Unknown Venipuncture / Unknown 12/01/2024 9:39 AM EDT 12/01/2024 9:56 AM EDT Mckinley Lee MD LAB BLOOD ORDERABLES Final R esult Performing Organization Address City/[facility]/ZIP Co de Phone Number [facility] [address] [place] [address] * Prepare Leukocyte Reduced Platelets: 1 Units, Irradiated (12/01/2024 8:52 AM EDT) [facility] Product Code [id number] BLOO D BANK Dispense Status Transfused BLOOD BANK Blood Expiration Date [id number] BLOOD BANK Unit Number [id number] B LOOD BANK Product Blood Type 6200 BLOOD BANK Blood Type A+ BLOOD BANK Blood Venous blood specimen / Unknown Mckinley Lee MD BLOOD BANK PRODUCT ORDERABLE S Final Result Performing Organization Address City/[facility] Co de Phone Number BLOOD BANK [address] documented in this encounter Visit Diagnoses [...] mL Right Neck lidocaine-EPINEPHrine (Xylocaine W/EPI) 1 %-1:061907 injection As needed, Starting on Sun12/01/24 at [...] documented as of this encounter Care Teams Thread Machine Operator Relationship Specialty Start Date End Date Zhao Harris MD [address] [place] [address] [place] [address] PCP - General 12/03/20 documented as of this encounter
--- OUTSIDE RECORDS SUMMARY | 2024-12-09 08:30 | XMS_ITS | Encounter Summary ---
Author Organization [facility] Address [address] [place] [address] Care Team Providers Care Compounding And Finishing Supervisor Name Role Phone Zhao Harris MD Primary Care Provider [phone] Reason for Visit * Reason Comments Labs Nurse Visit Encounter Details Date Type Department Care Team ([facility] Contact Info) Description 12/09/2024 8:30 AM EDT Clinical Support PAV CC Hematology/BMT and Cellular Therapy Program [address] [place] [address] [place] [address] Social History Tobacco Use Types Packs/Day Years [...] drink first t manav in the morning (EYE-BOAT CREW DECK HAND) to steady your nerves or to get [...] Upcoming Encounters Date Type Department Care Team ([facility] st Contact Info) Description 02/02/2025 11:00 AM EDT Appointment PAV A Interventional Radiology [address] [place] [address] 02/10/2025 8:30 AM EDT Clinical Support PAV CC Hematology/BMT and Cellular Therapy Program [address] [address] 02/10/2025 9:00 AM EDT Office Visit PAV Hematology/BMT and Cellular Therapy Program [address] [phone] Elaina Boss, PA 800 [facility] [address] [place] [address] 02/10/2025 10:30 AM EDT Appointment [facility] Infusion [facility] 1 [address] [place] [address] 02/11/2025 2:00 PM EDT Appointment [facility] Infusion [facility] 1 [address] [place] [address] 02/12/2025 2:00 PM EDT Appointment [facility] Infusion [facility] 1 [address] [place] [address] 02/13/2025 2:00 PM EDT Appointment [facility] Infusion [facility] 1 [address] [place] [address] 02/14/2025 2:00 PM EDT Appointment [facility] Infusion [facility] 1 [address] [place] [address] 03/10/2025 8:30 AM EDT Clinical Support PAV CC Hematology/BMT and Cellular Therapy Program [address] [place] [phone] 03/10/2025 9:00 AM EDT Office Visit PAV CC Hematology/BMT and Cellular Therapy Program 750 [facility] [place] [phone] Isaura Wynn, INBOUND CALL CENTER AGENT 800 [facility] 1st [place] [address] 03/10/2025 11:20 AM EDT Office Visit Pav CC Head, Neck & Respiratory 800 [facility], 2nd [place] [phone] Elsa Razo, INBOUND CALL CENTER AGENT 800 [place] [phone] documented as of this encounter Visit Diagnoses [...] documented as of this encounter Care Teams Compounding And Finishing Supervisor Relationship Specialty Start Date End Date Zhao Harris MD [address] [place] [address] PCP - General 12/03/20 documented as of this encounter
--- OUTSIDE RECORDS SUMMARY | 2024-12-09 09:00 | XMS_ITS | Encounter Summary ---
Author Organization [facility] Address [address] [place] [address] Care Team Providers Care Electrician Second Name Role Phone Zhao Harris MD Primary Care Provider + [phone] Reason for Visit * Reason Comments Procedure * Genetic Testing (Routine) - Authorized Specialty Diagnoses / Procedures Referred By Justice mcgee Referred To Contact Lab Diagnoses Myelodysplasia (myelodysplastic syndrome) (CMS/HCC) Procedures Leukemia/Lymphoma - Immunophenotyping by Flow Cytometry Virgen Vargas MD [address] [facility] [address] [address] Phone: tel: fax: Referral ID Status Reason Start Date Expiration Date V isits Requested Visits Authorized [id number] Authorized 11/18/2024 05/20/2026 1 1 Encounter Details Date Type Department Care Team (Latest Contact Info) Description 12/09/2024 9:00 AM EDT Procedure Visit [facility] Hematology/BMT and Cellular Therapy Program [address] [place] [address] Kierra Novak APRN [address] [facility] [address] [address] Myelodysplasia (myelodysplastic syndrome) (CMS/HCC) Social [...] drink first t manav in the morning (EYE-LEGAL SECRETARY) to steady your nerves or to get [...] by: Kierra Novak APRN Authorized by: Kierra Nvoak APRN Consent: Consent obtained: Written Consent given by: Patient Risks, benefits, and alternatives were discussed: yes Risks discussed: Bleeding, infection and pain Austin protocol: Procedure explained and questions answered to [...] Upcoming Encounters Date Type Department Care Team ([facility] Contact Info) Description 02/02/2025 11:00 AM EDT Appointment [facility] [address] [place] [address] 02/10/2025 8:30 AM EDT Clinical Support [facility] Hematology/BMT and Cellular Therapy Program [address] [phone] 02/10/2025 9:00 AM EDT Office Visit [facility] Hematology/BMT and Cellular Therapy Program [address] [phone] Elaina Boss PA 800 [facility] [address] [place] [phone] 02/10/2025 10:30 AM EDT Appointment [facility] [address] [place] [address] 02/11/2025 2:00 PM EDT Appointment [facility] 1 [address] [place] [address] 02/12/2025 2:00 PM EDT Appointment [facility] 1 [address] [place] [address] 02/13/2025 2:00 PM EDT Appointment [facility] 1 [address] [place] [address] 02/14/2025 2:00 PM EDT Appointment [facility] [address] [place] [address] 03/10/2025 8:30 AM EDT Clinical Support [facility] Hematology/BMT and Cellular Therapy Program [address] [place] [phone] 03/10/2025 9:00 AM EDT Office Visit [facility] Hematology/BMT and Cellular Therapy Program [address] [phone] Isaura Wynn, BIOLOGICAL CHEMIST 800 [facility] [address] [place] [phone] 03/10/2025 11:20 AM EDT Office Visit [facility] Head, Neck & Respiratory 800 [facility], 2nd [place] [address] Elsa Razo, BIOLOGICAL CHEMIST [address] [place] [address] documented as of this encounter Procedures Procedure Name Priority Date/Time Associated Diagnosis Comments CYTOGENETICS TESTING, ONCOLOGY Routine 12/09/2024 10:15 AM EDT Myelodysplasia (myelodysplastic syndrome) ([facility]/HCC) CHROMOSOME KARYOTYPE, ONCOLOGY Routine 12/09/2024 10:15 AM EDT Myelodysplasia (myelodysplastic syndrome) ([facility]/HCC) LEUKEMIA/LYMPHOMA - IMMUNOPHENOTYPING BY FLOW CYTOMETRY Routine [...] Type Bone Marrow 12/16/2024 5:[address] [facility] Clinical Indication Acute Myeloid Leukemia 12/16/2024 5:[address] [facility] Specimen Adequacy Adequate 025 5:[address] [facility] Chromosome Analysis Result Giemsa-banded metaphase cells from unstimulated bone marrow cultures showed the following chromosome pattern: 43~45,X,-Y,t(4;1 4)(q21;q32),add( 5)(q13),add(16)( q11.2),-17,add(2 0)(q11.2)[cp13]/ 46,XY[7] 12/16/2024 5:[address] [facility] Interpretation Abnormal male chromosome analysis. [...] were observed on this patient's previous specimen [id number] and indicate persistent disease. Clinical correlation is recommended. Note: Per [employer] (CAP) requirement additional karyotypes were performed and charged due to the presence of clonal abnormalities. # cells counted = 20 # cells analyzed = 20 # cells karyotyped = 3 Band resolution: 400 12/16/2024 5:[address] [facility] Pathologist Signature Reviewed by: Mesfin aRe 12/16/2024 5:[address] [facility] Bone Marrow Non-blood Collection / Unknown 12/09/2024 10:15 AM EDT 12/09/2024 12:48 PM EDT us Virgen Vargas MD LAB CYTOGENETICS ORDERABLES F inal Result [facility] [address] [place] [address] * Leukemia/Lymphoma - Immunophenotyping by Flow Cytometry (12/09/2024 10:15 AM EDT) Clinical Indication AML 12/10/2024 8:51 AM T [facility] Flow Cytometry Interpretation APPROXIMATELY 23% POPULATION OF CD34 POSITIVE MYELOID BLASTS EXPRESSING CD34, CD117, CD13, CD33, HLA-DR, PARTIAL CD7, VARIABLE CD123, PARTIAL CD38, AND MODERATE CD45, SEE COMMENT, BONE MARROW ASPIRATE. 12/10/2024 8:[address] [facility] Comments Specimen viability is 86.0%. [...] light chains, CD123 12/10/2024 8:51 AM T [facility] Disclaimer This test was developed and its performance characteristics determined by the Immuno-Molecular Pathology Laboratory at the [facility]. It has not been cleared or [...] report. 12/10/2024 8:[address] [facility] Pathologist Signature Reviewed by: Gerry Jensen MD 12/10/2024 8:[address] [facility] MRD Indicated Test Not Indicated 8:[address] [facility] Bone Marrow Specimen from bone marrow obtained by aspiration / Unknown Non-blood Collection / Unknown 12/09/2024 10:15 AM EDT 12/09/2024 11:28 AM EDT us Virgen Vargas MD LAB FLOW CYTOMETRY ORDERABLES Final Result [facility] [address] [place] [address] * Bone marrow exam (12/09/2024 10:15 AM EDT) Case Report Bone Marrow Case: [id number] Authorizing Provider: Virgen Vargas MD Collected: 12/09/2024 1015 Ordering Location: [facility] Hematology/BMT and Received: 12/09/2024 1145 Cellular Therapy Program Pathologist: Gerry Jesnen MD Specimens: A) - Bone Marrow Aspirate, right B) - Bone Marrow Biopsy, right C) - Peripheral Blood for Bone Marrow 12/19/2024 5:[address] [facility] Cytogenetics Report, Addendum Chromosome Analysis [...] were observed on this patient's previous specimen [id number] and indicate persistent disease. 12/19/2024 5:[address] [facility] Addendum electronically signed by Gerry Jensen MD on 12/19/2024 at 1735 EDT Final Diagnosis PERIPHERAL BLOOD AND BONE MARROW, RIGHT POSTERIOR ILIAC CREST, (PERIPHERAL SMEAR, ASPIRATE SMEAR, AND CORE BIOPSY): - NORMOCELLULAR BONE MARROW WITH ERYTHROID HYPERPLASIA, VIRTUALLY ABSENT MATURING GRANULOPOIESIS, AND 14% BLASTS, SEE COMMENT. 12/19/2024 5:[address] [facility] at 1706 EDT Comment While by flow cytometric analysis blasts constitute 23% of cellularity, the majority of bone marrow cellularity consists of erythroid precursors that are removed by flow cytometry. This leads to the discrepancy between the percentage of blasts by flow cytometry and morphologic examination. Nonetheless, the findings are consistent with some residual disease. 12/19/2024 5:[address] [facility] Clinical Information AML s/p cycle 2 12/19/2024 5:[address] [facility] CBC and Differential PERIPHERAL BLOOD: [...] Platelets are decreased. 12/19/2024 5:35 PM EDT [facility] Bone Marrow Differential BONE MARROW DIFFERENTIAL: 400 cells Normal Patient Neutrophils 15-50 0 Metamyelocytes 4-19 0 Myelocytes 1-18 1 Promyelocytes 1-8 0 Blasts 0-2 14 Monocytes 0-5 3 Erythroid 16-38 76 Lymphocytes 3-24 1 Eosinophils 0-6 0 Basophils 0-2 0 Plasma cells 0-4 5 Other 12/19/2024 5:[address] [facility] Aspirate Smear The bone marrow [...] predominantly normal morphology. 12/19/2024 5:[address] [facility] Core Biopsy The core biopsy is small and shows 5 mm of a normocellular bone marrow with a cellularity of approximately 30% that is predominantly comprised of erythroid precursors. Erythropoiesis is left-shifted, but maturing. Maturing granulopoiesis is virtually absent. Myeloid cells almost entirely consists of immature precursors. Megakaryocytes are decreased and exhibit predominantly normal morphology. 12/19/2024 5:[address] [facility] Flow Cytometry Interpretation Flow cytometric analysis shows approximately 23% population of CD34 positive myeloid blasts expressing CD34, CD117, CD13, CD33, HLA-DR, partial CD7, variable CD123, partial CD38, and moderate CD45 ([id number]). 12/19/2024 5:35 PM EDT [facility] Gross Description B. RIGHT A single specimen is received in formalin labeled bone marrow biopsy right posterior iliac crest and consists of 1 piece(s) of red/white tissue measuring 0.7 cm in length 0.2 cm in diameter. The specimen is submitted in to Histology for decalcification and routine processing. Cold Time: <1m 12/19/2024 5:[address] [facility] Note: A resident was involved in the service. I attest I examined the relevant preparations for the specimens and confirmed the diagnosis or interpretation. 12/19/2024 5:[address] [facility] Bone Marrow Peripheral blood specimen [...] ORDERABLES Edit ed Result - Final [facility] [address] [place] [address] * BIOPSY BONE MARROW (12/09/2024 10:00 AM EDT) Narrative Kierra Novak APRN - 12/09/2024 10:00 AM EDT Kierra Novak APRN 12/09/2024 12:08 PM Biopsy bone marrow Date/Time: 12/09/2024 10:00 AM Performed by: Kierra Novak APRN Authorized by: Kierra Novak APRN Consent: Consent obtained: Written Consent given by: Patient Risks, benefits, and alternatives were discussed: yes Risks discussed: Bleeding, infection and pain Austin protocol: Procedure explained and questions answered to [...] Tolerated well, no immediate complications Kierra Novak BIOLOGICAL CHEMIST IN CLINIC/BEDSIDE ORDERAB LES Final Result * [...] ORDERABLE S Final Result Performing Organization Address [facility] Co de Phone Number BLOOD BANK [address] [place] [address] * Morphology (12/09/2024 8:45 AM EDT) Elliptocytes/ Ovalocytes Present LAB HEMATOLOGY METHOD 12/09/2024 11:45 AM EDT [facility] RBC Morphology Slide Reviewed LAB HEMATOLOGY METHOD 12/09/2024 11:45 AM EDT [facility] Platelet Estimate Platelet smear estimate consistent with automated count LAB HEMATOLOGY METHOD 12/09/2024 11:45 AM EDT [facility] Blood Venous blood specimen / Unknown Venipuncture / Unknown 12/09/2024 8:45 AM EDT 12/09/2024 8:56 AM EDT Virgen Vargas MD LAB BLOOD ORDERABLES Final Re sult [facility] [address] [place] [address], [place] [address] * (ABNORMAL) Manual Differential (12/09/2024 8:45 AM [...] LAB HEMATOLOGY METHOD 12/09/2024 11:45 AM EDT [facility] Eosinophils Absolute 0.00 0.00 - 0.50 10*3/uL LAB HEMATOLOGY METHOD 12/09/2024 11:45 AM EDT [facility] Basophils Absolute 0.00 0.00 - 0.10 10*3/uL LAB HEMATOLOGY METHOD 12/09/2024 11:45 AM EDT [facility] Blood Venous blood specimen / Unknown Venipuncture / Unknown 12/09/2024 8:45 AM EDT 12/09/2024 8:56 AM EDT Virgen Vargas MD LAB BLOOD ORDERABLES Final Re sult Performing Organization Address City/[facility]/ZIP Co de Phone Number [facility] [address] [place] [address] * Peripheral blood smear, pathologist interpretation (12/09/2024 8:45 AM EDT) Clinical Diagnosis, Peripheral Smear AML under therapy LAB HEMATOLOGY METHOD 12/09/2024 11:[address] [facility] Interpretation , Peripheral Smear Pancytopenia with rare circulating blast. A resident was involved in the service. I attest I examined the relevant preparations for the specimens and confirmed the diagnosis or interpretation. 12/09/2024 11:[address] [facility] Pathologist Signature, Peripheral Smear 12/09/2024 11:[address] [facility] Comment:Reviewed by: Martha Lopez MD LAB CP ASR DISCLAIMER Yes 12/09/2024 11:[address] [facility] Blood Venous blood specimen / Unknown Venipuncture / Unknown 12/09/2024 8:45 AM EDT 12/09/2024 8:56 AM EDT Virgen Vargas MD LAB PATHOLOGY ORDERABLES Terri l Result Performing Organization Address City/[facility]/ZIP Co de Phone Number [facility] [address] [place] [phone] * (ABNORMAL) Comprehensive metabolic panel (12/09/2024 8:45 AM EDT) Glucose, Plasma 103(H) 74 - 99 mg/dL 12/09/2024 9:[address] [facility] BUN, Plasma 9 8 - 23 mg/dL 12/09/2024 9:[address] [facility] Creatinine, Plasma 0.78 0.70 - 1.20 mg/dL 12/09/2024 9:[address] [facility] BUN/Creatinine Ratio 12 12/09/2024 9:[address] [facility] Sodium, Plasma 140 136 - 145 mmol/L 12/09/2024 9:[address] [facility] Potassium, Plasma 3.9 3.6 - 4.9 mmol/L 12/09/2024 9:[address] [facility] Chloride, Plasma 109(H) 97 - 107 mmol/L 12/09/2024 9:[address] [facility] CO2, Plasma 21(L) 22 - 29 mmol/L 12/09/2024 9:[address] [facility] Anion Gap 10 6 - 16 mmol/L 12/09/2024 9:[address] [facility] Total Calcium, Plasma 9.0 8.9 - 10.2 mg/dL 12/09/2024 9:[address] [facility] Total Protein 6.6 6.3 - 7.9 g/dL 12/09/2024 9:[address] [facility] Albumin, Plasma 3.9 3.5 - 5.2 g/dL 12/09/2024 9:[address] [facility] AST, Plasma 31 10 - 50 U/L 12/09/2024 9:[address] [facility] ALT, Plasma 37 10 - 50 U/L 12/09/2024 9:[address] [facility] Alkaline Phosphatase, Plasma 81 40 - 115 U/L 12/09/2024 9:[address] [facility] Total Bilirubin, Plasma 0.6 0.2 - 1.1 mg/dL 12/09/2024 9:[address] [facility] eGFRcr 96.5 mL/min/1.7 3m*2 12/09/2024 9:[address] [facility] Comment:Reported eGFRcr in m L/min/1.73m2 is based the CKD-EPI 2020 equation that does not use a race coefficient. Blood Venous blood specimen / Unknown Venipuncture / Unknown 12/09/2024 8:45 AM EDT 12/09/2024 9:01 AM EDT us Virgen Vargas MD LAB BLOOD ORDERABLES Final Re sult [facility] [address] [place] [address] * (ABNORMAL) CBC and differential (12/09/2024 8:45 AM EDT) WBC Count 0.68(LL) 3.70 - 10.30 10*3/uL LAB HEMATOLOGY METHOD 12/09/2024 11:45 AM EDT [facility] RBC Count 2.34(L) 4.60 - 6.10 10*6/uL LAB HEMATOLOGY METHOD 12/09/2024 11:45 AM EDT [facility] HGB 7.5(L) 13.7 - 17.5 g/dL LAB HEMATOLOGY METHOD 12/09/2024 11:45 AM EDT [facility] HCT 20.6(L) 40.0 - 51.0 % LAB HEMATOLOGY METHOD 12/09/2024 11:45 AM EDT [facility] Platelet Count 24(L) 155 - 369 10*3/uL LAB HEMATOLOGY METHOD 12/09/2024 11:45 AM EDT [facility] MCV 88 79 - 98 fL LAB HEMATOLOGY METHOD 12/09/2024 11:45 AM EDT [facility] MCH 32.1(H) 26.0 - 32.0 pg LAB HEMATOLOGY METHOD 12/09/2024 11:45 AM EDT [facility] MCHC 36.4(H) 30.7 - 35.5 g/dL LAB HEMATOLOGY METHOD 12/09/2024 11:45 AM EDT [facility] RDW 17.1(H) 11.5 - 14.5 % LAB HEMATOLOGY METHOD 12/09/2024 11:45 AM EDT [facility] MPV 9.2 8.8 - 12.5 fL [...] BLOOD ORDERABLES Final Re sult [facility] [address] [place] [address] documented in this encounter Visit Diagnoses Diagnosis [...] documented as of this encounter Care Teams Electrician Second Relationship Specialty Start Date End Date Zhao Harris MD [address] [place] [address] PCP - General 12/03/20 documented as of this encounter
--- OUTSIDE RECORDS SUMMARY | 2024-12-09 13:30 | XMS_ITS | Encounter Summary ---
Author Organization [facility] Address [address] [place] [address] Care Team Providers Care Pulverizer Mill Operator Name Role Phone Zhao Harris MD Primary Care Provider [phone] Reason for Visit * Reason Comments Follow-up Encounter Details Date Type Department Care Team (Latest Contact Info) Description 12/09/2024 1:30 PM EDT Clinical Support [facility] [address] [facility], 2nd [place] [phone] Myelodysplasia (myelodysplastic syndrome) (CMS/HCC) (Primary Dx); Thrombocytopenia [...] drink first t manav in the morning (EYE-HEEL ROOM SUPERVISOR) to steady your nerves or to [...] Appointment [facility] A Interventional Radiology [address] [place] [address] 02/10/2025 8:30 AM EDT Clinical Support [facility] Hematology/BMT and Cellular Therapy Program [address] [place] [address] 02/10/2025 9:00 AM EDT Office Visit [facility] Hematology/BMT and Cellular Therapy Program [address] [place] [address] Elaina Boss, PA 800 [facility] [address] [place] [phone] 02/10/2025 10:30 AM EDT Appointment [facility] Infusion [facility] 1 [address] [place] [address] 02/11/2025 2:00 PM EDT Appointment [facility] 1 [address] [place] [phone] 02/12/2025 2:00 PM EDT Appointment [facility] 1 [address] [place] [phone] 02/13/2025 2:00 PM EDT Appointment [facility] 1 [address] [place] [address] 02/14/2025 2:00 PM EDT Appointment [facility] 1 [address] [place] [phone] 03/10/2025 8:30 AM EDT Clinical Support [facility]ology[facility]BMT [facility] Therapy [facility] [address] [place] [address] 03/10/2025 9:00 AM EDT Office Visit [facility] Hematology/BMT and Cellular Therapy Program [address] [place] [address] Isaura Wynn, SILVER SERVICE WAITER 800 [facility] [address] [place] [phone] 03/10/2025 11:20 AM EDT Office Visit [facility] Head[facility] Neck [facility] Respiratory [address] [facility], 2nd [place] [address] Elsa Razo, SILVER SERVICE WAITER [address] [place] [address] documented as of this encounter Procedures Procedure Name Priority Date/Time Associated Diagnosis Comments PREPARE RBC Routine 12/09/2024 1:17 PM EDT Myelodysplasia (myelodysplastic syndrome) (CMS/HCC) Thrombocytopenia (CMS/HCC) documented in this encounter Results * Transfuse RBC, Irradiated (12/09/2024 3:57 PM EDT) us Kayli CHIU BLOOD TRANSFUSION ORDERA BLES Final Result * Prepare Leukocyte Reduced RBC: 1 Units, Irradiated (12/09/2024 1:17 PM EDT) Product Code [id number] CH BLOO D BANK Dispense Status Transfused BLOOD BANK Blood Expiration Date [id number] BLOOD BANK Unit Number [id number] B LOOD BANK Product Blood Type 9500 BLOOD BANK Blood Type O- BLOOD BANK Crossmatch Compatible BLOOD BANK Other Kayil CHIU BLOOD BANK PRODUCT ORDER VIKAS Final Result BLOOD BANK [address] documented in this encounter Visit Diagnoses [...] documented as of this encounter Care Teams Pulverizer Mill Operator Relationship Specialty Start Date End Date Zhao Harris MD [facility] [place] [address] PCP - General 12/03/20 documented as of this encounter
--- OUTSIDE RECORDS SUMMARY | 2024-12-11 08:30 | XMS_ITS | Encounter Summary ---
Author Organization [facility] Address [address] 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) to steady your nerves or [...] Appointment [facility] A Interventional Radiology [address] [place] [address] 02/10/2025 8:30 AM EDT Clinical Support [facility] Hematology/BMT and Cellular Therapy Program [address] [address] 02/10/2025 9:00 AM EDT Office Visit [facility] Hematology/BMT and Cellular Therapy Program [address] [phone] Elaina Boss, PA 800 [facility] [address] [place] [address] 02/10/2025 10:30 AM EDT Appointment [facility] [address] [place] [address] 02/11/2025 2:00 PM EDT Appointment [facility] 1 [address] [place] [address] 02/12/2025 2:00 PM EDT Appointment [facility] 1 [address] [place] [address] 02/13/2025 2:00 PM EDT Appointment [facility] [address] [place] [address] 02/14/2025 2:00 PM EDT Appointment [facility] [address] [place] [address] 03/10/2025 8:30 AM EDT Clinical Support [facility] CC Hematology/BMT and Cellular Therapy Program 750 [facility] [address] 03/10/2025 9:00 AM EDT Office Visit [facility]AV Hematology/BMT and Cellular Therapy Program 750 [facility], [address] [place] [address] Isaura Wynn, RETAIL PLANNER 800 [facility] [address] [place] [phone] 03/10/2025 11:20 AM EDT Office Visit Pav CC Head, Neck & Respiratory 800 [facility], 2nd [place] [address] Elsa Razo, RETAIL PLANNER [address] [place] [phone] documented as of this encounter Procedures Procedure [...] LAB HEMATOLOGY METHOD 12/11/2024 10:53 AM EDT [facility] RBC Morphology Slide Reviewed LAB HEMATOLOGY METHOD 12/11/2024 10:53 AM EDT [facility] Platelet Estimate Platelet smear estimate consistent with automated count LAB HEMATOLOGY METHOD 12/11/2024 10:53 AM EDT [facility] Blood Venous blood specimen / Unknown Venipuncture / Unknown 12/11/2024 8:38 AM EDT 12/11/2024 8:50 AM EDT Virgen Vargas MD LAB BLOOD ORDERABLES Final Re sult Performing Organization Address City/[facility]/ZIP Co de Phone Number [facility] [address] [place] [address] * Peripheral blood smear, pathologist interpretation (12/11/2024 8:38 AM EDT) Clinical Diagnosis, Peripheral Smear History of acute myeloid leukemia (recent bone marrow dated 12/09/2024 with 14% blasts) LAB HEMATOLOGY METHOD 12/11/2024 4:46 PM EDT [facility] Interpretation , Peripheral Smear Marked leukopenia with neutropenia and 1% circulating blasts. Dysplastic neutrophils (hypogranular) are noted. Moderate anemia and marked thrombocytopen ia. 12/11/2024 4:46 PM EDT [facility] Pathologist Signature, Peripheral Smear 12/11/2024 4:46 PM EDT [facility] Comment:Reviewed by: Omar Peralta MD Blood Venous blood specimen / Unknown Venipuncture / Unknown 12/11/2024 8:38 AM EDT 12/11/2024 8:50 AM EDT Virgen Vargas MD LAB PATHOLOGY ORDERABLES Terri l Result Performing Organization Address City/[facility]/ZIP Co de Phone Number [facility] [address] [place] [address] * (ABNORMAL) Manual Differential (12/11/2024 8:38 AM EDT) Blasts % 1 % LAB HEMATOLOGY METHOD 12/11/2024 10:53 AM EDT [facility] Promyelocytes % 0 % LAB [...] LAB HEMATOLOGY METHOD 12/11/2024 10:53 AM EDT [facility] Promyelocytes Absolute 0.00 10*3/uL LAB HEMATOLOGY METHOD 12/11/2024 10:53 AM EDT [facility] Myelocytes Absolute 0.00 10*3/uL LAB [...] LAB HEMATOLOGY METHOD 12/11/2024 10:53 AM EDT [facility] Blood Venous blood specimen / Unknown Venipuncture / Unknown 12/11/2024 8:38 AM EDT 12/11/2024 8:50 AM EDT us Virgen Vargas MD LAB BLOOD ORDERABLES Final Re sult [facility] [address] [place] [address] * (ABNORMAL) CBC and differential (12/11/2024 8:38 AM EDT) WBC Count 0.61(LL) 3.70 - 10.30 10*3/uL LAB HEMATOLOGY METHOD 12/11/2024 10:54 AM EDT [facility] RBC Count 2.80(L) 4.60 - 6.10 10*6/uL LAB HEMATOLOGY METHOD 12/11/2024 10:54 AM EDT [facility] HGB 8.9(L) 13.7 - 17.5 g/dL LAB HEMATOLOGY METHOD 12/11/2024 10:54 AM EDT [facility] HCT 25.1(L) 40.0 - 51.0 % LAB HEMATOLOGY METHOD 12/11/2024 10:54 AM EDT [facility] Platelet Count 11(LL) 155 - 369 10*3/uL LAB HEMATOLOGY METHOD 12/11/2024 10:54 AM EDT [facility] MCV 90 79 - 98 fL LAB HEMATOLOGY METHOD 12/11/2024 10:54 AM EDT [facility] MCH 31.8 26.0 - 32.0 pg LAB HEMATOLOGY METHOD 12/11/2024 10:54 AM EDT [facility] MCHC 35.5 30.7 - 35.5 g/dL LAB HEMATOLOGY METHOD 12/11/2024 10:54 AM EDT [facility] RDW 16.2(H) 11.5 - 14.5 % LAB HEMATOLOGY METHOD 12/11/2024 10:54 AM EDT [facility] MPV 12.3 8.8 - 12.5 fL LAB HEMATOLOGY METHOD 12/11/2024 10:54 AM EDT [facility] nRBC 4.9(H) <=0.0 per 100 WBCs LAB HEMATOLOGY METHOD 12/11/2024 10:54 AM EDT [facility] Differential Type Manual LAB HEMATOLOGY METHOD 12/11/2024 10:54 AM EDT [facility] Blood Venous blood specimen / [...] LAB BLOOD ORDERABLES Final Re sult [facility] [address] [place] [address] * (ABNORMAL) Comprehensive Metabolic Panel, Plasma (12/11/2024 8:38 AM EDT) Glucose, Plasma 105(H) 74 - 99 mg/dL 12/11/2024 9:19 AM EDT [facility] BUN, Plasma 10 8 - 23 mg/dL 12/11/2024 9:19 AM EDT [facility] Creatinine, Plasma 0.75 0.70 - 1.20 mg/dL 12/11/2024 9:19 AM EDT [facility] BUN/Creatinine Ratio 13 12/11/2024 9:19 AM EDT [facility] Sodium, Plasma 140 136 - 145 mmol/L 12/11/2024 9:19 AM EDT [facility] Potassium, Plasma 4.1 3.6 - 4.9 mmol/L 12/11/2024 9:19 AM EDT [facility] Chloride, Plasma 110(H) 97 - 107 mmol/L 12/11/2024 9:19 AM EDT [facility] CO2, Plasma 22 22 - 29 mmol/L 12/11/2024 9:19 AM EDT [facility] Anion Gap 8 6 - 16 mmol/L 12/11/2024 9:19 AM EDT [facility] Total Calcium, Plasma 9.1 8.9 - 10.2 mg/dL 12/11/2024 9:19 AM EDT [facility] Total Protein 6.9 6.3 - 7.9 g/dL 12/11/2024 9:19 AM EDT [facility] Albumin, Plasma 4.0 3.5 - 5.2 g/dL 12/11/2024 9:19 AM EDT [facility] AST, Plasma 38 10 - 50 U/L 12/11/2024 9:19 AM EDT [facility] ALT, Plasma 40 10 - 50 U/L 12/11/2024 9:19 AM EDT [facility] Alkaline Phosphatase, Plasma 86 40 - 115 U/L 12/11/2024 9:19 AM EDT [facility] Total Bilirubin, Plasma 0.6 0.2 - 1.1 mg/dL 12/11/2024 9:19 AM EDT [facility] eGFRcr 97.7 mL/min/1.7 3m*2 12/11/2024 9:19 AM EDT [facility] Comment:Reported eGFRcr in m L/min/1.73m2 is based the CKD-EPI 2020 equation that does not use a race coefficient. Blood Venous blood specimen / Unknown Venipuncture / Unknown 12/11/2024 8:38 AM EDT 12/11/2024 8:50 AM EDT us Virgen Vargas MD LAB BLOOD ORDERABLES Final Re sult [facility] [address] [place] [address] documented in this encounter Visit Diagnoses Diagnosis [...] documented as of this encounter Care Teams Gizzard Puller Relationship Specialty Start Date End Date Zhao Harris MD [address] [place] [address] PCP - General 12/03/20 documented as of this encounter
--- OUTSIDE RECORDS SUMMARY | 2024-12-11 09:00 | XMS_ITS | Encounter Summary ---
Author Organization [facility] Address [address] 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) Virgen Vargas MD 800 [facility] [address] [address] Phone: tel: fax: Referral ID Status Reason Start Date Expiration Date V isits Requested Visits Authorized [id number] Closed Specialty Services Required 12/11/2024 06/12/2026 1 1 Encounter Details Date Type Department Care Team (Latest Contact Info) Description 12/11/2024 9:00 AM EDT Office Visit PAV CC Hematology/BMT and Cellular Therapy Program [address] [place] [phone] Virgen Vargas MD 800 [facility] Cancer [address] [address] Myelodysplasia (myelodysplastic syndrome) (CMS/HCC) (Primary [...] drink first t manav in the morning (EYE-S3B MULTI SENSOR OPERATOR) to steady your nerves or to [...] a preserved mata-T cell profile with a CD4:KO0vkjlz of 2.7:1. Polyclonal B-cells (3%) and a small plasma cell population (0.6%) were also identified. Cytogenetics: Normal. Molecular Testing: PCR for NPM1 and FLT3 mutations are negative. Next-generation sequencing (NGS) myeloid panel: ASXL1 - p.[id number] - VAF 25% TP53 - p.[id number] - VAF 36% U2AF1 - p.Vwk777Ycx - VAF 33% 10/20/2024- started treatment with [...] a durable remission in the context of SM86-mhamxok AML. The third, and most promising, option would be enrollment in a clinical trial, ideally one that targets TP53- mutant disease or incorporates novel agents. Unfortunately, there are no active trials available locally or at [facility], but I have reached out to Dr. Fernandes at [facility] to explore any opportunities there. We will [...] in completing the documentation. Virgen Vargas M.D. Smelter Operator Division of Hematology/BMT [facility] [1] Current Outpatient Medications: acyclovir [...] constipation., Disp: 30 tablet, Rfl: 3 HYDROcodone-acetaminophen ([place]) 5-325 MG tablet, Take 1 tablet by [...] PAV A Interventional Radiology [address] [place] [address] 02/10/2025 8:30 AM EDT Clinical Support PAV Hematology/BMT and Cellular Therapy Program [address] [address] 02/10/2025 9:00 AM EDT Office Visit PAV Hematology/BMT and Cellular Therapy Program [address] [address] Elaina Boss, [place] 800 [facility] [address] [place] [address] 02/10/2025 10:30 AM EDT Appointment [facility] Infusion Clinic 1 [address] [place] [address] 02/11/2025 2:00 PM EDT Appointment [facility] Infusion [facility] 1 [address] [place] [address] 02/12/2025 2:00 PM EDT Appointment [facility] Infusion [facility] 1 [address] [place] [address] 02/13/2025 2:00 PM EDT Appointment [facility] Infusion [facility] 1 [address] [place] [address] 02/14/2025 2:00 PM EDT Appointment [facility] Infusion [facility] 1 [address] [place] [address] 03/10/2025 8:30 AM EDT Clinical Support PAV Hematology/BMT and Cellular Therapy Program [address] [address] 03/10/2025 9:00 AM EDT Office Visit PAV Hematology/BMT and Cellular Therapy Program [address] [address] Isaura Wynn, ESTRELLA 800 [facility] [address] [place] [phone] 03/10/2025 11:20 AM EDT Office Visit Pav CC Head, Neck & Respiratory 800 [facility], 2nd [place] [address] Elsa Razo, BOILER OPERATOR 800 [place] [address] documented as of this encounter Visit Diagnoses [...] documented as of this encounter Care Teams Directory Compiler Relationship Specialty Start Date End Date Zhao Harris MD [address] [address] PCP - General 12/03/20 documented as of this encounter
--- OUTSIDE RECORDS SUMMARY | 2024-12-11 13:00 | XMS_ITS | Encounter Summary ---
Author Organization [facility] Address [address] [place] [address] Care Team Providers Care Vascular Physician Name Role Phone Zhao Harris MD Primary Care Provider [phone] Encounter Details Date Type Department Care Team (Latest Contact Info) Description 12/11/2024 1:00 PM EDT Clinical Support [facility] Cancer Acute Treatment [facility] [address] [place] [address] Myelodysplasia (myelodysplastic syndrome) (CMS/HCC) (Primary Dx); Thrombocytopenia [...] drink first t manav in the morning (EYE-PUBLIC ACCOUNTANT) to steady your nerves or to [...] [facility] A Interventional Radiology [address] [place] [address] 02/10/2025 8:30 AM EDT Clinical Support [facility] Hematology/BMT and Cellular Therapy Program [address] [address] 02/10/2025 9:00 AM EDT Office Visit [facility] Hematology/BMT and Cellular Therapy Program [address] [address] Elaina Boss, PA 800 [facility] [address] [place] [phone] 02/10/2025 10:30 AM EDT Appointment [facility] 1 [address] [place] [address] 02/11/2025 2:00 PM EDT Appointment [facility] 1 [address] [place] [address] 02/12/2025 2:00 PM EDT Appointment [facility] 1 [address] [place] [address] 02/13/2025 2:00 PM EDT Appointment [facility] 1 [address] [place] [address] 02/14/2025 2:00 PM EDT Appointment [facility] 1 [address] [place] [address] 03/10/2025 8:30 AM EDT Clinical Support [facility] Hematology/BMT and Cellular Therapy Program [address] [address] 03/10/2025 9:00 AM EDT Office Visit [facility] Hematology/BMT and Cellular Therapy Program [address] [phone] Isaura Wynn, GROOVER AND TURNER 800 [facility] [address] [place] [phone] 03/10/2025 11:20 AM EDT Office Visit [facility] Head[facility] Neck & Respiratory 800 [facility], 2nd [place] [phone] Elsa Razo, GROOVER AND TURNER [address] [place] [address] documented as of this encounter [...] LAB HEMATOLOGY METHOD 12/11/2024 2:[address] [facility] Blood Venous blood specimen / Unknown Venipuncture / Unknown 12/11/2024 2:04 PM EDT 12/11/2024 2:34 PM EDT Glenroy Kim MD LAB BLOOD ORDERABLES Fi nal Result [facility] [address] [place] [address] * Prepare Leukocyte Reduced Platelets: 1 Units (12/11/2024 12:57 PM EDT) Product Code [id number] CH BLOO D BANK Dispense Status Transfused BLOOD BANK Blood Expiration Date [id number] BLOOD BANK Unit Number [id number] CH B LOOD BANK Product Blood Type 6200 BLOOD BANK Blood Type A+ CH BLOOD BANK Blood Venous blood specimen / Unknown Kayli CHIU BLOOD BANK PRODUCT ORDER VIKAS Final Result BLOOD BANK [address] documented in this encounter Visit Diagnoses [...] documented as of this encounter Care Teams Vascular Physician Relationship Specialty Start Date End Date Zhao Harris MD [address] [place] [address] PCP - General 12/03/20 documented as of this encounter
--- OUTSIDE RECORDS SUMMARY | 2024-12-11 14:30 | XMS_ITS | Encounter Summary ---
Author Organization [facility] Address [address] [place] [address] Care Team Providers Care Nurse Staff Community Health Name Role Phone Zhao Harris MD Primary Care Provider [phone] Reason for Visit * Consultation (Routine) - Closed Specialty Diagnoses / Procedures Referred By Contact Referred To Contact Interventional Radiology Diagnoses Myelodysplasia (myelodysplastic syndrome) (CMS/HCC) Mckinley Lee MD [address] [place] [address] Phone: tel:[phone] fax:[phone] [facility] Vascular Interventional Radiology [address] [facility] [address] [place] [address] Phone: tel: Referral ID Status Reason Start Date Expiration Date V isits Requested Visits Authorized [id number] Closed Specialty Services Required 12/01/2024 06/02/2026 1 1 Encounter Details Date Type Department Care Team (Latest Contact Info) Description 12/11/2024 2:30 PM EDT Office Visit [facility] Vascular Interventional Radiology [address] [facility] Room [address] [place] [phone] Judy Leung APRN, SHEEBA [address] [place] [address] Port-A-Cath in place (Primary Dx); [...] drink first t manav in the morning (EYE-PRESIDENTIAL SUPPORT SPECIALIST) to steady your nerves or to [...] accepted: Orders * Progress Notes - Judy Leugn, COUNSELING DIRECTOR, DNP - 12/11/2024 2:30 PM EDT Images [...] been accessed. He is being referred to [facility] for possible trials. Allergies: Patient has [...] for port placement. New AML, starting chemotherapy. Janitorial Account Manager: Mckinley Lee MD Secondary Water Mechanic: Dr. David Holt Rad Dose: 6 [...] was placed supine on the fluoro table. Supervisor Locomotive ultrasonography revealed the vein to be compressible [...] placement on 12/01/24 - Being referred to [facility] for possible trials PLAN: - Port accessed in clinic today and functioning well - Denies fever or chills; no drainage, swelling at site - Instructed to call with any signs of infection or malfunction - Return to [facility] PRN Medical Decision Making/Plan: Diagnoses and all orders for this visit: Port-A-Cath in place - heparin flush (porcine) 100 UNIT/ML injection 500 Units Myelodysplasia (myelodysplastic syndrome) (CMS/HCC) - Discharge Ambulatory referral to [facility] Clinic I spent 35 minutes on this [...] daily., Disp: 90 tablet, Rfl: 3 HYDROcodone-acetaminophen ([place]) 5-325 MG tablet, Take 1 tablet by [...] 1,000 mL, 1,000 mL, Intravenous, Once PRN, Kyali Ospina PA documented in this encounter Plan of Treatment Upcoming Encounters Date Type Department Care Team (Late st Contact Info) Description 02/02/2025 11:00 AM EDT Appointment P[facility] A Interventional Radiology [address] [place] [address] 02/10/2025 8:30 AM EDT Clinical Support [facility] Hematology/BMT and Cellular Therapy Program [address] [place] [address] [place] [address] 02/10/2025 9:00 AM EDT Office Visit [facility] Hematology/BMT and Cellular Therapy Program [address] [place] [address] [place] [address] Elaina Boss, PA 800 [facility] Cancer [address] [phone] 02/10/2025 10:30 AM EDT Appointment [facility] 1 [address] [place] [phone] 02/11/2025 2:00 PM EDT Appointment [facility] 1 [address] [place] [address] 02/12/2025 2:00 PM EDT Appointment [facility] 1 [address] [place] [address] 02/13/2025 2:00 PM EDT Appointment [facility] 1 [address] [place] [address] 02/14/2025 2:00 PM EDT Appointment [facility] 1 [address] [place] [address] 03/10/2025 8:30 AM EDT Clinical Support [facility] CC Hematology/BMT and Cellular Therapy Program [address] [phone] 03/10/2025 9:00 AM EDT Office Visit [facility] CC Hematology/BMT and Cellular Therapy Program [address] [phone] Isaura Wynn, COUNSELING DIRECTOR 800 [facility] [address] [phone] 03/10/2025 11:20 AM EDT Office Visit Pav CC Head, Neck & Respiratory 800 [facility], 2nd [place] [phone] Elsa Razo, COUNSELING DIRECTOR [address] [place] [address] documented as of this encounter Procedures Procedure [...] 12/12/2024 8:43 AM EDT us Judy Leung COUNSELING DIRECTOR, DNP LAB BLOOD BANK TEST ORDE MAGNO Final Result BLOOD BANK [address] [place] [address], documented in this encounter Visit Diagnoses Diagnosis [...] documented as of this encounter Care Teams Nurse Staff Community Health Relationship Specialty Start Date End Date Zhao Harris MD [address] [place] [address] PCP - General 12/03/20 documented as of this encounter
--- OUTSIDE RECORDS SUMMARY | 2024-12-16 08:00 | XMS_ITS | Encounter Summary ---
Author Organization [facility] Address [address] [place] [address] Care Team Providers Care Authorization Manager Name Role Phone Zhao Harris MD Primary Care Provider [phone] Reason for Visit * Reason Comments Labs Nurse Visit Encounter Details Date Type Department Care Team ([facility] Contact Info) Description 12/16/2024 8:00 AM EDT Clinical Support P[facility] CC Hematology/BMT and Cellular Therapy Program [address] [place] [address] [place] [address] Social History Tobacco Use Types Packs/Day Years [...] drink first t manav in the morning (EYE-BEAM DYER) to steady your nerves or to get [...] Upcoming Encounters Date Type Department Care Team ([facility] st Contact Info) Description 02/02/2025 11:00 AM EDT Appointment PAV A Interventional Radiology [address] [place] [address] 02/10/2025 8:30 AM EDT Clinical Support PAV CC Hematology/BMT and Cellular Therapy Program [address] [address] 02/10/2025 9:00 AM EDT Office Visit PAV Hematology/BMT and Cellular Therapy Program [address] [address] Elaina Boss, PA 800 [facility] [address] [place] [address] 02/10/2025 10:30 AM EDT Appointment [facility]fusion [facility] 1 [address] [place] [address] 02/11/2025 2:00 PM EDT Appointment [facility]fusion [facility] 1 [address] [place] [address] 02/12/2025 2:00 PM EDT Appointment [facility]fusion [facility] 1 [address] [place] [address] 02/13/2025 2:00 PM EDT Appointment [facility] 1 [address] [place] [address] 02/14/2025 2:00 PM EDT Appointment [facility]fusion [facility] 1 [address] [place] [address] 03/10/2025 8:30 AM EDT Clinical Support PAV CC Hematology/BMT and Cellular Therapy Program [address] [place] [address] 03/10/2025 9:00 AM EDT Office Visit PAV CC Hematology/BMT and Cellular Therapy Program 750 [facility] [place] [address] Isaura Wynn, COURTESY CLERK 800 [facility] [address] [place] [address] 03/10/2025 11:20 AM EDT Office Visit Pav CC Head, Neck & Respiratory 800 [facility], 2nd [place] [address] Elsa Razo, COURTESY CLERK 800 [place] [address] documented as of this encounter Visit Diagnoses [...] documented as of this encounter Care Teams Authorization Manager Relationship Specialty Start Date End Date Zhao Harris MD [address] [place] [address] [id number] PCP - General 12/03/20 documented as of this encounter
--- OUTSIDE RECORDS SUMMARY | 2024-12-16 08:30 | XMS_ITS | Encounter Summary ---
Author Organization [facility] Address [address] [place] [address] Care Team Providers Care Reel Cart Operator Name Role Phone Zhao Harris MD Primary Care Provider [phone] Reason for Referral * Genetic Testing (Routine) - Authorized Specialty Diagnoses / Procedures Referred By Justice t Referred To Contact Lab Diagnoses Myelodysplasia (myelodysplastic syndrome) (CMS/HCC) Procedures Leukemia/Lymphoma - Immunophenotyping by Flow Cytometry Virgen Vargas MD [address] [facility] [address] [address] Phone: tel: fax: Referral ID Status Reason Start Date Expiration Date V isits Requested Visits Authorized [id number] Authorized 12/18/2024 06/19/2026 1 1 * Genetic Testing (Routine) - Authorized Specialty Diagnoses / Procedures [facility] Referred To Contact Lab Diagnoses Myelodysplasia (myelodysplastic syndrome) (CMS/HCC) Procedures Bone marrow exam Virgen Vargas MD [address] [facility] [address] [address] Phone: tel: fax: Referral ID Status Reason Start Date Expiration Date V isits Requested Visits Authorized [id number] Authorized 12/18/2024 06/19/2026 1 1 Reason for Visit * Reason Comments Acute Myeloid Leukemia Encounter Details Date Type Department Care Team (Latest Contact Info) Description 12/16/2024 8:30 AM EDT Office Visit [facility] CC Hematology/BMT and Cellular Therapy Program [address] [facility], [address] [place] [address] Isaura Wynn, SENIOR DATA WAREHOUSE DEVELOPER [address] [facility] [address] [place] [id number] Myelodysplasia (myelodysplastic syndrome) (CMS/HCC) (Primary Dx) Social [...] drink first t manav in the morning (EYE-DOCK PUMPER) to steady your nerves or to get [...] Notes * Progress Notes - Isaura Wynn, SENIOR DATA WAREHOUSE DEVELOPER - 12/16/2024 8:30 AM EDT HEMATOLOGY ONCOLOGY [...] a preserved mata-T cell profile with a CD4:XZ8dwllh of 2.7:1. Polyclonal B-cells (3%) and a small plasma cell population (0.6%) were also identified. Cytogenetics: Normal. Molecular Testing: PCR for NPM1 and FLT3 mutations are negative. 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 The third, and most promising, option would be enrollment in a clinical trial, ideally one that targets TP53- mutant disease or incorporates novel agents. Unfortunately, there are no active trials available locally or at [facility], but I have reached out to Dr. Fernandes at [facility] to explore any opportunities there. We [...] daily., Disp: 90 tablet, Rfl: 3 HYDROcodone-acetaminophen ([place]) 5-325 MG tablet, Take 1 tablet by [...] Upcoming Encounters Date Type Department Care Team ([facility] st Contact Info) Description 02/02/2025 11:00 AM EDT Appointment [facility] A Interventional Radiology [address] [place] [address] 02/10/2025 8:30 AM EDT Clinical Support [facility] Hematology/BMT and Cellular Therapy Program [address] [phone] 02/10/2025 9:00 AM EDT Office Visit [facility] Hematology/BMT and Cellular Therapy Program [address] [phone] Elaina Boss PA 800 [facility] [address] [place] [phone] 02/10/2025 10:30 AM EDT Appointment [facility] In[facility] [address] [place] [address] 02/11/2025 2:00 PM EDT Appointment [facility] [address] [place] [address] 02/12/2025 2:00 PM EDT Appointment [facility] [address] [place] [address] 02/13/2025 2:00 PM EDT Appointment [facility] [address] [place] [address] 02/14/2025 2:00 PM EDT Appointment [facility] [address] [place] [address] 03/10/2025 8:30 AM EDT Clinical Support [facility] CC Hematology/BMT and Cellular Therapy Program [address] [address] 03/10/2025 9:00 AM EDT Office Visit [facility] Hematology/BMT and Cellular Therapy Program [address] [phone] Isaura Wynn, SENIOR DATA WAREHOUSE DEVELOPER [address] [facility] [address] [place] [address] 03/10/2025 11:20 AM EDT Office Visit Pav CC Head, Neck & Respiratory [address] [facility], [address] [place] [address] Elsa Razo, SENIOR DATA WAREHOUSE DEVELOPER [address] [place] [phone] documented as of this encounter Procedures Procedure Name Priority Date/Time Associated Diagnosis Comments GROUP A STREPTOCOCCUS BY PCR Routine 12/16/2024 9:40 AM EDT Myelodysplasia (myelodysplastic syndrome) ([facility]) STREPTOCOCCUS CULTURE Routine 12/16/2024 9:40 AM EDT Myelodysplasia (myelodysplastic syndrome) ([facility]) CBC WITH AUTO DIFFERENTIAL Routine 12/16/2024 8:10 AM EDT Myelodysplasia (myelodysplastic syndrome) ([facility]) URIC ACID, PLASMA Routine 12/16/2024 8:1 0 AM EDT Myelodysplasia (myelodysplastic syndrome) ([facility]) PHOSPHORUS, PLASMA Routine 12/16/2024 8: 10 [...] Clinical Indication AML 01/07/2025 10:18 AM EDT [facility] Flow Cytometry Interpretation APPROXIMATELY 16% MYELOID BLASTS; EXPRESSING CD34, CD117, CD13, CD33, HLA-DR, PARTIAL CD7, PARTIAL CD123, VARIABLE CD38, AND MODERATE CD45, SEE COMMENT, BONE MARROW ASPIRATE. 01/07/2025 10:18 AM EDT [facility] Comments Specimen viability is 79%. [...] disease. Final interpretation requires morphologic correlation (BM [id number]). The following antibodies were used in this analysis: CD45, CD2, CD3, CD4, CD5, CD7, CD8, CD10, CD13, CD14, CD15, CD16, CD19, CD20, CD33, CD34, CD38, CD56, CD117, HLA-DR, kappa surface light chains, lambda surface light chains, CD123 01/07/2025 10:18 AM EDT [facility] Disclaimer This test was developed and its performance characteristics determined by the Immuno-Molecular Pathology Laboratory at the [facility]. It has not been cleared or [...] clinical laboratory testing. 01/07/2025 10:18 AM EDT [facility] Pathologist Signature Reviewed by: Tessie Peralta MD 01/07/2025 10:18 AM EDT [facility] MRD Indicated Test Not Indicated 10:18 AM EDT [facility] Bone Marrow Specimen from bone marrow obtained by aspiration / Unknown Non-blood Collection / Unknown 01/06/2025 9:48 AM EDT 01/06/2025 11:20 AM EDT us Virgen Vargas MD LAB FLOW CYTOMETRY ORDERABLES Final Result [facility] [address] [place] [address] * Bone marrow exam (01/06/2025 9:48 AM EDT) Case Report Bone Marrow Case: [id number] Authorizing Provider: Virgen Vargas MD Collected: 01/06/2025 0948 Ordering Location: [facility] Hematology/BMT and Received: 01/06/2025 1108 Cellular Therapy Program Pathologist: Tessie Peralta MD Specimens: A) - Bone Marrow Aspirate, left B) - Bone Marrow Biopsy, left C) - Peripheral Blood for Bone Marrow 6:13 PM EDT [facility] Final Diagnosis BONE MARROW, LEFT POSTERIOR ILIAC CREST, (PERIPHERAL SMEAR, ASPIRATE SMEARS, AND CORE BIOPSY): - MILDLY HYPOCELLULAR BONE MARROW WITH ERYTHROID HYPERPLASIA, MARKEDLY REDUCED GRANULOPOIESIS, PERSISTENT DYSPOIESIS AND 10% BLASTS, SEE COMMENT. 6:13 PM EDT [facility] at 1813 EDT Comment The marrow cellularity is composed of erythroid cells with markedly reduced granulopoiesis and decreased megakaryocytes. Persistent trilineage dyspoiesis is noted. The blast percentages are higher by flow cytometry analysis as the majority of marrow cellularity consists of erythroid precursors that are removed by flow cytometry. 5 6:13 PM EDT [facility] Clinical Information AML 12/22 6:13 PM EDT [facility] CBC and Differential PERIPHERAL BLOOD: [...] blasts are identified. 5 6:13 PM EDT [facility] Bone Marrow Differential BONE MARROW DIFFERENTIAL: 400 cells Normal Patient Neutrophils 15-50 0 Metamyelocytes 4-19 1 Myelocytes 1-18 2 Promyelocytes 1-8 1 Blasts 0-2 10 Monocytes 0-5 0 Erythroid 16-38 73 Lymphocytes 3-24 4 Eosinophils 0-6 1 Basophils 0-2 0 Plasma cells 0-4 8 Other 5 6:13 PM EDT [facility] Bone Marrow Aspirate and Biopsy [...] trabeculae are unremarkable. 5 6:13 PM EDT [facility] Special and Immunohistochemical Stains Immunohistochemica l [...] developed by and are performed at the [facility], [address] [place] [address]. All tests reported here, except those addressing [...] on decalcified specimens. 5 6:13 PM EDT [facility] Flow Cytometry Interpretation APPROXIMATELY 16% MYELOID BLASTS; EXPRESSING CD34, CD117, CD13, CD33, HLA-DR, PARTIAL CD7, PARTIAL CD123, VARIABLE CD38, AND MODERATE CD45, SEE COMMENT, BONE MARROW ASPIRATE ([id number]) 6:13 PM EDT [facility] Gross Description B. LEFT A single specimen is received in formalin labeled bone marrow biopsy left posterior iliac crest and consists of 2 piece(s) of tissue measuring 0.8/0.2 cm in length 0.2 cm in diameter. The specimen is submitted in to Histology for decalcification and routine processing. Cold Time: <1m 6:13 PM EDT [facility] Note: A resident was involved in the service. I attest I examined the relevant preparations for the specimens and confirmed the diagnosis or interpretation. 6:13 PM EDT [facility] Bone Marrow Peripheral blood specimen [...] MD LAB PATHOLOGY ORDERABLES Terri lara Result [facility] [address] [place] [address] * Streptococcus Culture (12/16/2024 9:40 AM EDT) Culture Reading Strep A No Streptococcus pyogenes or Streptococcus dysgalactiae isolated 12/17/2024 2:28 PM EDT [facility] Swab Pharyngeal structure / Unknown Non-blood Collection / Unknown 12/16/2024 9:40 AM EDT 12/16/2024 10:10 AM EDT Isaura L Meikel SENIOR DATA WAREHOUSE DEVELOPER LAB MICROBIOLOGY - GENERAL ORD ERABLES Final Result Performing Organization Address [facility] de Phone Number [facility] [address] [place] [address] * Group A Streptococcus by PCR (12/16/2024 9:40 AM EDT) Group A Streptococcus PCR Result Not Detected Not Detected 12/16/2024 11:53 AM EDT [facility] Swab Pharyngeal structure / Unknown Non-blood Collection / Unknown 12/16/2024 9:40 AM EDT 12/16/2024 10:10 AM EDT us Isaura Wynn APRN LAB MICROBIOLOGY - GENERAL ORD ERABLES Final Result Performing Organization Address [facility] [place] [address] * (ABNORMAL) Uric acid (12/16/2024 8:10 AM EDT) Uric Acid, Plasma 3.0(L) 3.7 - 8.0 mg/dL 12/16/2024 8:58 AM EDT [facility] Blood Venous blood specimen / Unknown Venipuncture / Unknown 12/16/2024 8:10 AM EDT 12/16/2024 8:27 AM EDT us Isaura Wynn SENIOR DATA WAREHOUSE DEVELOPER LAB BLOOD ORDERABLES Final Res ult Performing Organization Address [facility] de Phone Number [facility] [address] [place] [address] * Phosphorus, Plasma (12/16/2024 8:10 AM EDT) Phosphorus, Plasma 3.4 2.5 - 4.5 mg/dL 12/16/2024 8:58 AM EDT [facility] Blood Venous blood specimen / Unknown Venipuncture / Unknown 12/16/2024 8:10 AM EDT 12/16/2024 8:27 AM EDT us Isaura Wynn SENIOR DATA WAREHOUSE DEVELOPER LAB BLOOD ORDERABLES Final Res ult Performing Organization Address City/[facility] Co de Phone Number [facility] [address] [place] [address] * Magnesium, Plasma (12/16/2024 8:10 AM EDT) Magnesium, Plasma 2.4 1.9 - 2.4 mg/dL 12/16/2024 8:58 AM EDT [facility] Blood Venous blood specimen / Unknown Venipuncture / Unknown 12/16/2024 8:10 AM EDT 12/16/2024 8:27 AM EDT us Isaura L Meikel SENIOR DATA WAREHOUSE DEVELOPER LAB BLOOD ORDERABLES Final Res ult Performing Organization Address [facility] Co de Phone Number [facility] [address] [place] [address] * Lactate Dehydrogenase, Plasma (12/16/2024 8:10 AM EDT) LDH, Plasma 230 116 - 250 U/L 12/16/2024 8:58 AM EDT [facility] Blood Venous blood specimen / Unknown Venipuncture / Unknown 12/16/2024 8:10 AM EDT 12/16/2024 8:27 AM EDT us Isaura L Meikel SENIOR DATA WAREHOUSE DEVELOPER LAB BLOOD ORDERABLES Final Res ult Performing Organization Address [facility] Co de Phone Number [facility] [address] [place] [address] * (ABNORMAL) Comprehensive Metabolic Panel, Plasma (12/16/2024 8:10 AM EDT) Glucose, Plasma 110(H) 74 - 99 mg/dL 12/16/2024 8:58 AM EDT [facility] BUN, Plasma 10 8 - 23 mg/dL 12/16/2024 8:58 AM EDT [facility] Creatinine, Plasma 0.79 0.70 - 1.20 mg/dL 12/16/2024 8:58 AM EDT [facility] BUN/Creatinine Ratio 13 12/16/2024 8:58 AM EDT [facility] Sodium, Plasma 140 136 - 145 mmol/L 12/16/2024 8:58 AM EDT [facility] Potassium, Plasma 4.2 3.6 - 4.9 mmol/L 12/16/2024 8:58 AM EDT [facility] Chloride, Plasma 109(H) 97 - 107 mmol/L 12/16/2024 8:58 AM EDT [facility] CO2, Plasma 21(L) 22 - 29 mmol/L 12/16/2024 8:58 AM EDT [facility] Anion Gap 10 6 - 16 mmol/L 12/16/2024 8:58 AM EDT [facility] Total Calcium, Plasma 8.9 8.9 - 10.2 mg/dL 12/16/2024 8:58 AM EDT [facility] Total Protein 6.8 6.3 - 7.9 g/dL 12/16/2024 8:58 AM EDT [facility] Albumin, Plasma 4.0 3.5 - 5.2 g/dL 12/16/2024 8:58 AM EDT [facility] AST, Plasma 23 10 - 50 U/L 12/16/2024 8:58 AM EDT [facility] ALT, Plasma 25 10 - 50 U/L 12/16/2024 8:58 AM EDT [facility] Alkaline Phosphatase, Plasma 95 40 - 115 U/L 12/16/2024 8:58 AM EDT [facility] Total Bilirubin, Plasma 0.6 0.2 - 1.1 mg/dL 12/16/2024 8:58 AM EDT [facility] eGFRcr 96.2 mL/min/1.7 3m*2 12/16/2024 8:58 AM EDT [facility] Comment:Reported eGFRcr in m L/min/1.73m2 is based the CKD-EPI 2020 equation that does not use a race coefficient. Blood Venous blood specimen / Unknown Venipuncture / Unknown 12/16/2024 8:10 AM EDT 12/16/2024 8:27 AM EDT us Isaura Wynn APRN LAB BLOOD ORDERABLES Final Res ult [facility] [address] [place] [address] * (ABNORMAL) CBC and Differential (12/16/2024 8:10 AM EDT) WBC Count 0.59(LL) 3.70 - 10.30 10*3/uL LAB HEMATOLOGY METHOD 12/16/2024 10:15 AM EDT [facility] RBC Count 2.48(L) 4.60 - 6.10 10*6/uL LAB HEMATOLOGY METHOD 12/16/2024 10:15 AM EDT [facility] HGB 8.0(L) 13.7 - 17.5 g/dL LAB HEMATOLOGY METHOD 12/16/2024 10:15 AM EDT [facility] HCT 22.1(L) 40.0 - 51.0 % LAB HEMATOLOGY METHOD 12/16/2024 10:15 AM EDT [facility] Platelet Count <5(LL) 155 - 369 10*3/uL LAB HEMATOLOGY METHOD 12/16/2024 10:15 AM EDT [facility] MCV 89 79 - 98 fL LAB HEMATOLOGY METHOD 12/16/2024 10:15 AM EDT [facility] MCH 32.3(H) 26.0 - 32.0 pg LAB HEMATOLOGY METHOD 12/16/2024 10:15 AM EDT [facility] MCHC 36.2(H) 30.7 - 35.5 g/dL LAB HEMATOLOGY METHOD 12/16/2024 10:15 AM EDT [facility] RDW 16.3(H) 11.5 - 14.5 % LAB HEMATOLOGY METHOD 12/16/2024 10:15 AM EDT [facility] MPV LAB HEMATOLOGY METHOD 12/16/2024 10:15 AM EDT [facility] Comment:Not Measured nRBC 0.0 <=0.0 per 100 WBCs LAB HEMATOLOGY METHOD 12/16/2024 10:15 AM EDT [facility] Differential Type Automated LAB HEMATOLOGY METHOD 12/16/2024 10:15 AM EDT [facility] Neutrophils % 5 % LAB HEMATOLOGY METHOD 12/16/2024 10:15 AM EDT [facility] Lymphocytes % 90 % LAB HEMATOLOGY METHOD 12/16/2024 10:15 AM EDT [facility] Monocytes % 5 % [...] Final Res ult [facility] [address] [place] [address] documented in this encounter Visit Diagnoses Diagnosis [...] documented as of this encounter Care Teams Reel Cart Operator Relationship Specialty Start Date End Date Zhao Harris MD [address] [place] [address] PCP - General 12/03/20 documented as of this encounter
--- OUTSIDE RECORDS SUMMARY | 2024-12-16 10:00 | XMS_ITS | Encounter Summary ---
Author Organization [facility] Address [address] [place] [address] Care Team Providers Care Wine Blender Name Role Phone Zhao Harris MD Primary Care Provider + [phone] Reason for Visit * Episode Based Medications (Routine) - Closed Specialty Diagnoses / Procedures Referred By Justiec mcgee Referred To Contact Diagnoses Myelodysplasia (myelodysplastic syndrome) (CMS/HCC) Procedures Azacitidine Daily x 7 / Venetoclax Every 28 Days Virgen Vargas MD 800 [facility] [address] [address] Phone: tel: fax: Virgen Vargas MD [address] [address] Phone: tel: fax: Referral ID Status Reason Start Date Expiration Date Visits Re quested Visits Authorized [id number] Closed 10/20/2024 04/21/2026 1 91 Encounter Details Date Type Department Care Team (Latest Contact Info) Description 12/16/2024 10:00 AM EDT - 12/16/2024 10:59 AM EDT Hospital Encounter [facility] H Infusion [address] [place] [phone] Myelodysplasia (myelodysplastic syndrome) (CMS/HCC) (Primary Dx); Thrombocytopenia [...] drink first t manav in the morning (EYE-WOODWIND INSTRUMENT REPAIRER) to steady your nerves or to [...] 5 MG tabletIndications :Coronary artery disease involving [place] heart with angina pectoris, unspecified vessel or lesion type (CMS/HCC),Hyperte nsion, unspecified type Take 1 tablet (5 mg) by mouth daily. 90 tablet 3 09/11/2024 HYDROcodone-aceta minophen ([place]) 5-325 MG tablet Take 1 tablet by [...] MG SL tabletIndications :Coronary artery disease involving [place] heart with angina pectoris, unspecified vessel or [...] AM EDT Appointment P[facility] A Interventional Radiology [address] [place] [phone] 02/10/2025 8:30 AM EDT Clinical Support [facility] Hematology/BMT and Cellular Therapy Program [address] [address] 02/10/2025 9:00 AM EDT Office Visit [facility] Hematology/BMT and Cellular Therapy Program [address] [place] [address] Elaina Boss, PA 800 [facility] [address] [place] [phone] 02/10/2025 10:30 AM EDT Appointment [facility] 1 [address] [place] [address] 02/11/2025 2:00 PM EDT Appointment [facility] 1 [address] [place] [address] 02/12/2025 2:00 PM EDT Appointment [facility] 1 [address] [place] [address] 02/13/2025 2:00 PM EDT Appointment [facility] 1 [address] [place] [address] 02/14/2025 2:00 PM EDT Appointment [facility] 1 [address] [place] [address] 03/10/2025 8:30 AM EDT Clinical Support [facility] Hematology/BMT and Cellular Therapy Program [address] [address] 03/10/2025 9:00 AM EDT Office Visit [facility] Hematology/BMT and Cellular Therapy Program [address] [place] [address] Isaura Wynn, ESTRELLA 800 [facility] [address] [address] 03/10/2025 11:20 AM EDT Office Visit Pav Head, Neck & Respiratory 800 [facility], 2nd [place] [address] Elsa Razo, PLANNING TECHNICIAN [address] [place] [address] documented as of this encounter [...] LAB HEMATOLOGY METHOD 12/16/2024 1:00 PM EDT [facility] Blood Venous blood specimen / Unknown Venipuncture / Unknown 12/16/2024 12:23 PM EDT 12/16/2024 12:51 PM EDT us Virgen Vargas MD LAB BLOOD ORDERABLES Final Re sult [facility] [address] [place] [address] * Transfuse platelets (12/16/2024 12:21 PM EDT) [...] ORDERABLE S Final Result Performing Organization Address City/State/[facility] Co de Phone Number BLOOD BANK [address] [place] [address], * Exception to Standard Practice, Pathologist Interpretation [...] ORDERAB LES Final Result BLOOD BANK [address] [place] [address], [place] * Prepare Leukocyte Reduced Platelets: 1 Units (12/16/2024 10:54 AM EDT) Product Code [id number] CH BLOO D BANK Dispense Status Transfused BLOOD BANK Blood Expiration Date BLOOD BANK Unit Number [id number] CH B LOOD BANK Product Blood Type 8400 BLOOD BANK Blood Type AB+ BLOOD BANK Blood Venous blood specimen / Unknown us Kayli CHIU BLOOD BANK PRODUCT ORDER VIKAS Final Result Performing Organization Address [facility] Co de Phone Number BLOOD BANK [address] [place] [address], * Prepare Leukocyte Reduced RBC: 1 Units, Irradiated (12/16/2024 10:54 AM EDT) Product Code [id number] CH BLOO D BANK Dispense Status Transfused BLOOD BANK Blood Expiration Date [id number] BLOOD BANK Unit Number [id number] CH B LOOD BANK Product Blood Type 9500 BLOOD BANK Blood Type O- CH BLOOD BANK Crossmatch Compatible CH BLOOD BANK Other Kayli CHIU BLOOD BANK PRODUCT ORDER VIKAS Final Result Performing Organization Address City/[facility]/ZIP Co de Phone Number BLOOD BANK [address] [place] [address], documented in this encounter Visit Diagnoses Diagnosis [...] documented as of this encounter Care Teams Wine Blender Relationship Specialty Start Date End Date Zhao Harris MD [address] [phone] PCP - General 12/03/20 documented as of this encounter
--- OUTSIDE RECORDS SUMMARY | 2024-12-16 11:00 | XMS_ITS | Encounter Summary ---
Author Organization Healthcare Address [address] [place] [address] Care Team Providers Care Power Transformer Repairer Name Role Phone Zhao Harris MD Primary Care Provider [phone] Encounter Details Date Type Department Care Team (Latest Contact Info) Description 12/16/2024 11:00 AM EDT - 12/16/2024 11:59 PM EDT Hospital Encounter [facility] H Infusion [address] [place] [address] Myelodysplasia (myelodysplastic syndrome) (CMS/HCC) (Primary Dx) Discharge [...] drink first t manav in the morning (EYE-CUPBOARD BUILDER) to steady your nerves or to get [...] 5 MG tabletIndications :Coronary artery disease involving [place] heart with angina pectoris, unspecified vessel or lesion type (CMS/HCC),Hyperte nsion, unspecified type Take 1 tablet (5 mg) by mouth daily. 90 tablet 3 09/11/2024 HYDROcodone-aceta minophen ([place]) 5-325 MG tablet Take 1 tablet by [...] MG SL tabletIndications :Coronary artery disease involving [place] heart with angina pectoris, unspecified vessel or [...] Appointment PAV A Interventional Radiology [address] [place] [address] 02/10/2025 8:30 AM EDT Clinical Support [facility] Hematology/BMT and Cellular Therapy Program [address] [place] [address] [place] [address] 02/10/2025 9:00 AM EDT Office Visit [facility] Hematology/BMT and Cellular Therapy Program [address] [place] [address] [place] [phone] Elaina Boss, ARAM 800 [facility] Cancer [address] [address] 02/10/2025 10:30 AM EDT Appointment [facility]fusion [facility] 1 [address] [place] [address] 02/11/2025 2:00 PM EDT Appointment [facility] 1 [address] [place] [address] 02/12/2025 2:00 PM EDT Appointment [facility] 1 [address] [place] [address] 02/13/2025 2:00 PM EDT Appointment [facility] 1 [address] [place] [address] 02/14/2025 2:00 PM EDT Appointment [facility] 1 [address] [place] [address] 03/10/2025 8:30 AM EDT Clinical Support [facility] Hematology/BMT and Cellular Therapy Program [address] [phone] 03/10/2025 9:00 AM EDT Office Visit [facility] Hematology/BMT and Cellular Therapy Program [address] [phone] Isaura Wynn, STONE CHIMNEY MASON 800 [facility] [address] [phone] 03/10/2025 11:20 AM EDT Office Visit Pav CC Head, Neck & Respiratory 800 [facility], 2nd [place] [address] Elsa Razo, STONE CHIMNEY MASON 800 [place] [phone] documented as of this encounter Visit Diagnoses [...] documented as of this encounter Care Teams Power Transformer Repairer Relationship Specialty Start Date End Date Zhao Harris MD [address] [place] [address] PCP - General 12/03/20 documented as of this encounter
--- OUTSIDE RECORDS SUMMARY | 2024-12-17 08:23 | XMS_ITS | Encounter Summary ---
Author Organization [facility] Address [address] [place] [address] Care Team Providers Care Pin Worker Name Role Phone Zhao Harris MD Primary Care Provider + [phone] Reason for Visit * Episode Based Medications (Routine) - Closed Specialty Diagnoses / Procedures Referred By Justice mcgee Referred To Contact Diagnoses Myelodysplasia (myelodysplastic syndrome) (CMS/HCC) Procedures Azacitidine Daily x 7 / Venetoclax Every 28 Days Virgen Vargas MD 800 [facility] [address] [address] Phone: tel: fax: Virgen Vargas MD [address] [address] Phone: tel: fax: Referral ID Status Reason Start Date Expiration Date Visits Re quested Visits Authorized [id number] Closed 10/20/2024 04/21/2026 1 91 Encounter Details Date Type Department Care Team (Latest Contact Info) Description 12/17/2024 8:23 AM EDT - 12/17/2024 11:59 PM EDT Hospital Encounter [facility] H Infusion 800 [place] [phone] Myelodysplasia (myelodysplastic syndrome) (CMS/HCC) (Primary Dx); Thrombocytopenia [...] drink first t manav in the morning (EYE-GARNETT MACHINE OPERATOR HELPER) to steady your nerves or to [...] Sign Reading Time Taken Comments Blood Pressure 119/69 12/17/2024 11:28 AM EDT Pulse 60 12/17/2024 11:28 AM EDT Temperature 36.8 C (98.2 F) 12/17/2024 11:28 AM EDT Respiratory Rate 16 12/17/2024 11:2 8 AM EDT Oxygen Saturation 100% 12/17/2024 8:25 AM EDT Inhaled Oxygen Concentration - - Weight 85.2 kg (187 lb 13.3 oz) 12/17/2024 8:25 AM EDT Height 170.2 cm (5' 7 ) 12/17/2024 8:25 AM EDT Body Mass Index 29.42 12/17/2024 8:25 AM EDT documented in this encounter Medications at Time of Discharge acyclovir (Zovirax) 800 MG tabletIndications :Myelodysplasia (myelodysplastic syndrome) (CMS/HCC) Take 1 tablet (800 mg) by mouth in the morning and 1 tablet (800 mg) before bedtime. 60 tablet 3 10/14/2024 bisoprolol (Zebeta) 5 MG tabletIndications :Coronary artery disease involving shoshone-paiute heart with angina pectoris, unspecified vessel or lesion type (CMS/HCC),Hyperte nsion, unspecified type Take 1 tablet (5 mg) by mouth daily. 90 tablet 3 09/11/2024 HYDROcodone-aceta minophen ([place]) 5-325 MG tablet Take 1 tablet by [...] MG SL tabletIndications :Coronary artery disease involving shoshone-paiute heart with angina pectoris, unspecified vessel or [...] Appointment [facility] A Interventional Radiology [address] [place] [address] 02/10/2025 8:30 AM EDT Clinical Support [facility] Hematology/BMT and Cellular Therapy Program [address] [address] 02/10/2025 9:00 AM EDT Office Visit [facility] Hematology/BMT and Cellular Therapy Program [address] [address] Elaina Boss, ARAM 800 [facility] [address] [place] [phone] 02/10/2025 10:30 AM EDT Appointment [facility] 1 [address] [place] [address] 02/11/2025 2:00 PM EDT Appointment [facility] 1 [address] [place] [address] 02/12/2025 2:00 PM EDT Appointment [facility] 1 [address] [place] [address] 02/13/2025 2:00 PM EDT Appointment [facility] Infusion Clinic 1 [address] [place] [address] 02/14/2025 2:00 PM EDT Appointment [facility] 1 [address] [place] [address] 03/10/2025 8:30 AM EDT Clinical Support [facility]ology/BMT [facility] Cellular Therapy Program [address] [address] 03/10/2025 9:00 AM EDT Office Visit [facility] Hematology/BMT and Cellular Therapy Program [address] [address] Isaura Wynn, JOURNEYMAN MILLWRIGHT 800 [facility] [address] [place] [phone] 03/10/2025 11:20 AM EDT Office Visit [facility] CC Head, Neck & Respiratory 800 [facility], 2nd [place] [address] Elsa Razo, JOURNEYMAN MILLWRIGHT 800 [place] [phone] documented as of this encounter Results * Transfuse RBC, Irradiated (12/17/2024 11:30 AM EDT) us Kayli CHIU BLOOD TRANSFUSION ORDERA BLES Final Result documented in this encounter Visit Diagnoses Diagnosis [...] Waste Container. Chemotherapy: refer to [id number]., On Sun12/17/24 at 0945, For 1 dose, In 50 mL NSIndications:Myelodysplasia (myelodysplastic syndrome) (CMS/HCC) New Bag 12/17/2024 9:23 AM EDT 150 mg 540 mL/hr ondansetron ODT (Zofran-ODT) disintegrating tablet 16 mg 16 mg, Oral, Once, 1 dose, On Sun12/17/24 at 0915, RoutineIndications:Myelodyspla haim (myelodysplastic syndrome) ([facility]/HCC) Given 12/17/2024 8:54 AM EDT 16 mg documented in this encounter Additional Health Concerns Assessment Noted Time PHQ-9 Depression Total Score: 0 09/11/19 9:15 AM EST A fall risk assessment has been complete d for the patient 12/17/2024 8:26 AM EDT A Body Mass Index follow-up plan has been documented for the patient 12/16/2024 12:23 PM EDT documented as of this encounter Care Teams Pin Worker Relationship Specialty Start Date End Date Zhao Harris MD [address] [place] [address] PCP - General 12/03/20 documented as of this encounter
--- OUTSIDE RECORDS SUMMARY | 2024-12-18 08:30 | XMS_ITS | Encounter Summary ---
Author Organization [facility] Address [address] [place] [address] Care Team Providers Care Transportation Associate Name Role Phone Zhao Harris MD Primary Care Provider + [phone] Reason for Visit * Episode Based Medications (Routine) - Closed Specialty Diagnoses / Procedures Referred By Justice mcgee Referred To Contact Diagnoses Myelodysplasia (myelodysplastic syndrome) (CMS/HCC) Procedures Azacitidine Daily x 7 / Venetoclax Every 28 Days Virgen Vargas MD [address] [address] Phone: tel: fax: Virgen Vargas MD [address] [address] Phone: tel: fax: Referral ID Status Reason Start Date Expiration Date Visits Re quested Visits Authorized [id number] Closed 10/20/2024 04/21/2026 1 91 Encounter Details Date Type Department Care Team (Latest Contact Info) Description 12/18/2024 8:30 AM EDT - 12/18/2024 9:45 AM EDT Hospital Encounter [facility] H Infusion [address] [place] [phone] Myelodysplasia (myelodysplastic syndrome) (CMS/HCC) (Primary Dx); Thrombocytopenia [...] first t manav in the morning (EYE-FOOD SAFETY FIELD SPECIALIST) to steady your nerves or to [...] 5 MG tabletIndications :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 [address] [place] [address] 02/10/2025 10:30 AM EDT Appointment [facility] Infusion [facility] 1 [address] [place] [address] 02/11/2025 2:00 PM EDT Appointment [facility]fusion [facility] 1 [address] [place] [address] 02/12/2025 2:00 PM EDT Appointment [facility]fusion [facility] 1 [address] [place] [address] 02/13/2025 2:00 PM EDT Appointment [facility]fusion [facility] 1 [address] [place] [address] 02/14/2025 2:00 PM EDT Appointment [facility]fusion [facility] 1 [address] [place] [address] 03/10/2025 8:30 AM EDT Clinical Support [facility] Hematology/BMT and Cellular Therapy Program [address] [address] 03/10/2025 9:00 AM EDT Office Visit PAV Hematology/BMT and Cellular Therapy Program [address] [address] Isaura Wynn, CLINICAL AUDITOR 800 [facility] [address] [phone] 03/10/2025 11:20 AM EDT Office Visit Pav Head, Neck & Respiratory 800 [facility], 2nd [place] [address] Elsa Razo B, CLINICAL AUDITOR [address] [place] [address] documented as of this encounter [...] LAB HEMATOLOGY METHOD 12/18/2024 11:06 AM EDT [facility] Blood Blood sample taken from central line / Unknown Venipuncture / Unknown 12/18/2024 10:55 AM EDT 12/18/2024 11:03 AM EDT us Virgen Vargas MD LAB BLOOD ORDERABLES Final Re sult [facility] [address] [place] [address] * Transfuse platelets (12/18/2024 10:52 AM EDT) Kayli Daly Bhavesh CHIU BLOOD TRANSFUSION ORDERA BLES Final Result * Transfuse platelets: 1 Units (12/18/2024 10:52 AM EDT) Kayli Daly Bhavesh CHIU BLOOD TRANSFUSION ORDERA BLES Final Result * Prepare Leukocyte Reduced Platelets: 1 Units (12/18/2024 9:45 AM EDT) Product Code A8490S47 BLOO D BANK Dispense Status Transfused BLOOD BANK Blood Expiration Date [id number] BLOOD BANK Unit Number [id number] CH B LOOD BANK Product Blood Type 6200 BLOOD BANK Blood Type A+ BLOOD BANK Blood Venous blood specimen / Unknown Kayli Daly Bhavesh CHIU BLOOD BANK PRODUCT ORDER VIKAS Final Result Performing Organization Address City/State/[facility] de Phone Number BLOOD BANK [address] * (ABNORMAL) Comprehensive Metabolic Panel, Plasma (12/18/2024 9:14 AM EDT) Glucose, Plasma 108(H) 74 - 99 mg/dL 12/18/2024 9:51 AM EDT [facility] BUN, Plasma 10 8 - 23 mg/dL 12/18/2024 9:51 AM EDT [facility] Creatinine, Plasma 0.80 0.70 - 1.20 mg/dL 12/18/2024 9:51 AM EDT [facility] BUN/Creatinine Ratio 13 12/18/2024 9:51 AM EDT [facility] Sodium, Plasma 139 136 - 145 mmol/L 12/18/2024 9:51 AM EDT [facility] Potassium, Plasma 4.4 3.6 - 4.9 mmol/L 12/18/2024 9:51 AM EDT [facility] Chloride, Plasma 108(H) 97 - 107 mmol/L 12/18/2024 9:51 AM EDT [facility] CO2, Plasma 22 22 - 29 mmol/L 12/18/2024 9:51 AM EDT [facility] Anion Gap 9 6 - 16 mmol/L 12/18/2024 9:51 AM EDT [facility] Total Calcium, Plasma 8.8(L) 8.9 - 10.2 mg/dL 12/18/2024 9:51 AM EDT [facility] Total Protein 6.8 6.3 - 7.9 g/dL 12/18/2024 9:51 AM EDT [facility] Albumin, Plasma 3.9 3.5 - 5.2 g/dL 12/18/2024 9:51 AM EDT [facility] AST, Plasma 16 10 - 50 U/L 12/18/2024 9:51 AM EDT [facility] ALT, Plasma 16 10 - 50 U/L 12/18/2024 9:51 AM EDT [facility] Alkaline Phosphatase, Plasma 83 40 - 115 U/L 12/18/2024 9:51 AM EDT [facility] Total Bilirubin, Plasma 0.6 0.2 - 1.1 mg/dL 12/18/2024 9:51 AM EDT [facility] eGFRcr 95.8 mL/min/1.7 3m*2 12/18/2024 9:51 AM EDT [facility] Comment:Reported eGFRcr in m L/min/1.73m2 is based the CKD-EPI 2020 equation that does not use a race coefficient. Blood Blood sample taken from central line / Unknown Venipuncture / Unknown 12/18/2024 9:14 AM EDT 12/18/2024 9:20 AM EDT us Virgen Vargas MD LAB BLOOD ORDERABLES Final Re sult [facility] [address] [place] [address] * (ABNORMAL) CBC and differential (12/18/2024 9:14 AM EDT) WBC Count 0.51(LL) 3.70 - 10.30 10*3/uL LAB HEMATOLOGY METHOD 12/18/2024 10:49 AM EDT [facility] RBC Count 2.50(L) 4.60 - 6.10 10*6/uL LAB HEMATOLOGY METHOD 12/18/2024 10:49 AM EDT [facility] HGB 8.1(L) 13.7 - 17.5 g/dL LAB HEMATOLOGY METHOD 12/18/2024 10:49 AM EDT [facility] HCT 21.9(L) 40.0 - 51.0 % LAB HEMATOLOGY METHOD 12/18/2024 10:49 AM EDT [facility] Platelet Count 6(LL) 155 - 369 10*3/uL LAB HEMATOLOGY METHOD 12/18/2024 10:49 AM EDT [facility] MCV 88 79 - 98 fL LAB HEMATOLOGY METHOD 12/18/2024 10:49 AM EDT [facility] MCH 32.4(H) 26.0 - 32.0 pg LAB HEMATOLOGY METHOD 12/18/2024 10:49 AM EDT [facility] MCHC 37.0(H) 30.7 - 35.5 g/dL LAB HEMATOLOGY METHOD 12/18/2024 10:49 AM EDT [facility] RDW 16.7(H) 11.5 - 14.5 % LAB HEMATOLOGY METHOD 12/18/2024 10:49 AM EDT [facility] MPV LAB HEMATOLOGY METHOD 12/18/2024 10:49 AM EDT [facility] Comment:Not Measured nRBC 0.0 <=0.0 per 100 WBCs LAB HEMATOLOGY METHOD 12/18/2024 10:49 AM EDT [facility] Differential Type Automated LAB HEMATOLOGY METHOD 12/18/2024 10:49 AM EDT [facility] Neutrophils % 6 % LAB HEMATOLOGY METHOD 12/18/2024 10:49 AM EDT [facility] Lymphocytes % 90 % LAB HEMATOLOGY METHOD 12/18/2024 10:49 AM EDT [facility] Monocytes % 4 % LAB HEMATOLOGY METHOD 12/18/2024 10:49 AM EDT [facility] Eosinophils % 0 % LAB HEMATOLOGY METHOD 12/18/2024 10:49 AM EDT [facility] Basophils % 0 % LAB HEMATOLOGY METHOD 12/18/2024 10:49 AM EDT [facility] Immature Granulocytes % 0 % LAB HEMATOLOGY METHOD 12/18/2024 10:49 AM EDT [facility] Neutrophils Absolute 0.03(LL) 1.60 - 6.10 10*3/uL LAB HEMATOLOGY METHOD 12/18/2024 10:49 AM EDT [facility] Lymphocytes Absolute 0.46(L) 1.20 - 3.90 10*3/uL LAB HEMATOLOGY METHOD 12/18/2024 10:49 AM EDT [facility] Monocytes Absolute 0.02(L) 0.30 - 0.90 10*3/uL LAB HEMATOLOGY METHOD 12/18/2024 10:49 AM EDT [facility] Eosinophils Absolute 0.00 0.00 - 0.50 10*3/uL LAB HEMATOLOGY METHOD 12/18/2024 10:49 AM EDT [facility] Basophils Absolute 0.00 0.00 - 0.10 10*3/uL LAB HEMATOLOGY METHOD 12/18/2024 10:49 AM EDT [facility] Immature Granulocytes Absolute 0.00 0.00 - 0.06 10*3/uL LAB HEMATOLOGY METHOD 12/18/2024 10:49 AM EDT [facility] Blood Blood sample taken from central line / Unknown Venipuncture / Unknown 12/18/2024 9:14 AM EDT 12/18/2024 9:20 AM EDT Narrative [facility] - 12/18/2024 10:49 AM EDT Therapeutic decision making should be based on absolute values, rather than percentages. us Christina Ramos MD LAB BLOOD ORDERABLES Final Resul t Performing Organization Address City/State/[facility] Co de Phone Number [facility] [address] [place] [address] * Exception to Standard Practice, Pathologist Interpretation [...] ORDERAB LES Final Result Performing Organization Address City/State/[facility] Co de Phone Number BLOOD BANK [address] documented in this encounter Visit Diagnoses [...] documented as of this encounter Care Teams Transportation Associate Relationship Specialty Start Date End Date Zhao Harris MD [address] [place] [address] [place] [address] PCP - General 12/03/20 documented as of this encounter
--- OUTSIDE RECORDS SUMMARY | 2024-12-18 09:46 | XMS_ITS | Encounter Summary ---
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 90 tablet 3 09/11/2024 HYDROcodone-aceta minophen ([place]) 5-325 MG tablet Take 1 tablet by [...] MG SL tabletIndications :Coronary artery disease involving [place] heart with angina pectoris, unspecified vessel or [...] Appointment PAV A Interventional Radiology [address] [place] [address] 02/10/2025 8:30 AM EDT Clinical Support PAV Hematology/BMT and Cellular Therapy Program [address] [address] 02/10/2025 9:00 AM EDT Office Visit PAV Hematology/BMT and Cellular Therapy Program [address] [address] Elaina Boss, PA 800 [facility] [address] [place] [address] 02/10/2025 10:30 AM EDT Appointment PAV Infusion Clinic 1 [address] [place] [address] 02/11/2025 2:00 PM EDT Appointment [facility] Infusion Clinic 1 [address] [place] [address] 02/12/2025 2:00 PM EDT Appointment [facility]AV Infusion Clinic 1 [address] [place] [address] 02/13/2025 2:00 PM EDT Appointment [facility] Infusion Clinic 1 [address] [place] [address] 02/14/2025 2:00 PM EDT Appointment [facility] Infusion Clinic 1 [address] [place] [address] 03/10/2025 8:30 AM EDT Clinical Support PAV Hematology/BMT and Cellular Therapy Program [address] [address] 03/10/2025 9:00 AM EDT Office Visit PAV Hematology/BMT and Cellular Therapy Program [address] [phone] Isaura Wynn, ASW/ASUW TACTICAL AIR CONTROLLER 800 [facility] [address] [place] [address] 03/10/2025 11:20 AM EDT Office Visit Pav CC Head, Neck & Respiratory 800 [facility], 2nd [place] [address] Elsa Razo, ASW/ASUW TACTICAL AIR CONTROLLER 800 [place] [address] documented as of this encounter Visit Diagnoses [...] as of this encounter Care Teams Supervisor Taping Relationship Specialty Start Date End Date Zhao Harris MD [address] [place] [address] PCP - General 12/03/20 documented as of this encounter
--- OUTSIDE RECORDS SUMMARY | 2024-12-19 08:30 | XMS_ITS | Encounter Summary ---
Author Organization [facility] Address [address] [place] [address] Care Team Providers Care Tower Cleaner Name Role Phone Zhao Harris MD Primary Care Provider [phone] Reason for Visit * Episode Based Medications (Routine) - Closed Specialty Diagnoses / Procedures Referred By Justice mcgee Referred To Contact Diagnoses Myelodysplasia (myelodysplastic syndrome) (CMS/HCC) Procedures Azacitidine Daily x 7 / Venetoclax Every 28 Days Virgen Vargas MD [address] [address] Phone: tel: fax: Virgen Vargas MD [address] [address] Phone: tel: fax: Referral ID Status Reason Start Date Expiration Date Visits Re quested Visits Authorized [id number] Closed 10/20/2024 04/21/2026 1 91 Encounter Details Date Type Department Care Team (Latest Contact Info) Description 12/19/2024 8:30 AM EDT - 12/19/2024 11:59 PM EDT Hospital Encounter [facility] Infusion Clinic 2 [address] [place] [phone] Myelodysplasia (myelodysplastic syndrome) (CMS/HCC) (Primary Dx) Discharge [...] drink first t manav in the morning (EYE-FUNDRAISING SALE REPRESENTATIVE) to steady your nerves or to [...] 5 MG tabletIndications :Coronary artery disease involving [place] heart with angina pectoris, unspecified vessel or lesion type (CMS/HCC),Hyperte nsion, unspecified type Take 1 tablet (5 mg) by mouth daily. 90 tablet 3 09/11/2024 HYDROcodone-aceta minophen ([place]) 5-325 MG tablet Take 1 tablet by [...] MG SL tabletIndications :Coronary artery disease involving [place] heart with angina pectoris, unspecified vessel or [...] Appointment [facility] A Interventional Radiology [address] [place] [address] 02/10/2025 8:30 AM EDT Clinical Support [facility] Hematology/BMT and Cellular Therapy Program [address] [address] 02/10/2025 9:00 AM EDT Office Visit [facility] Hematology/BMT and Cellular Therapy Program [address] [address] Elaina Boss PA 800 [facility] [address] [place] [address] 02/10/2025 10:30 AM EDT Appointment [facility]fusion [facility] 1 [address] [place] [address] 02/11/2025 2:00 PM EDT Appointment [facility] Infusion [facility] 1 [address] [place] [address] 02/12/2025 2:00 PM EDT Appointment [facility] Infusion Clinic 1 [address] [place] [address] 02/13/2025 2:00 PM EDT Appointment [facility] Infusion Clinic 1 [address] [place] [address] 02/14/2025 2:00 PM EDT Appointment [facility] Infusion [facility] 1 [address] [place] [address] 03/10/2025 8:30 AM EDT Clinical Support [facility] Hematology/BMT and Cellular Therapy Program [address] [address] 03/10/2025 9:00 AM EDT Office Visit [facility] Hematology/BMT and Cellular Therapy Program [address] [address] Isaura Wynn, COMMUNICATIONS MAINTAINER 800 [facility] [address] [place] [phone] 03/10/2025 11:20 AM EDT Office Visit [facility] CC Head, Neck & Respiratory 800 [facility], 2nd [place] [phone] Elsa Razo, COMMUNICATIONS MAINTAINER 800 [place] [phone] documented as of this encounter Visit Diagnoses [...] Sun12/19/24 at 0900, RoutineIndications:Myelodyspla haim (myelodysplastic syndrome) ([facility]) Given 12/19/2024 8:41 AM EDT 16 mg [...] documented as of this encounter Care Teams Tower Cleaner Relationship Specialty Start Date End Date Zhao Harris MD [address] [place] [address] PCP - General 12/03/20 documented as of this encounter
--- OUTSIDE RECORDS SUMMARY | 2024-12-20 08:08 | XMS_ITS | Encounter Summary ---
Author Organization [facility] Address [address] [place] [address] Care Team Providers Care Webbing Weaver Name Role Phone Zhao Harris MD Primary Care Provider + [phone] Reason for Visit * Episode Based Medications (Routine) - Closed Specialty Diagnoses / Procedures Referred By Justice mcgee Referred To Contact Diagnoses Myelodysplasia (myelodysplastic syndrome) (CMS/HCC) Procedures Azacitidine Daily x 7 / Venetoclax Every 28 Days Virgen Vargas MD [address] [place] [phone] Phone: tel: fax: Virgen Vargas MD [address] [address] Phone: tel: fax: Referral ID Status Reason Start Date Expiration Date Visits Re quested Visits Authorized [id number] Closed 10/20/2024 04/21/2026 1 91 Encounter Details Date Type Department Care Team (Latest Contact Info) Description 12/20/2024 8:08 AM EDT - 12/20/2024 11:59 PM EDT Hospital Encounter [facility] 1 [address] [place] [phone] Myelodysplasia (myelodysplastic syndrome) (CMS/HCC) (Primary Dx); Thrombocytopenia [...] first t manav in the morning (EYE-TURN SEWER) to steady your nerves or to [...] 5 MG tabletIndications :Coronary artery disease involving prairie band heart with angina pectoris, unspecified vessel or lesion type (CMS/HCC),Hyperte nsion, unspecified type Take 1 tablet (5 mg) by mouth daily. 90 tablet 3 09/11/2024 HYDROcodone-aceta minophen ([place]) 5-325 MG tablet Take 1 tablet by [...] MG SL tabletIndications :Coronary artery disease involving prairie band heart with angina pectoris, unspecified vessel or [...] ([facility] st Contact Info) Description 02/02/2025 11:00 AM EDT Appointment [facility] A Interventional Radiology [address] [place] [address] 02/10/2025 8:30 AM EDT Clinical Support [facility] Hematology/BMT and Cellular Therapy Program [address] [phone] 02/10/2025 9:00 AM EDT Office Visit [facility] Hematology/BMT and Cellular Therapy Program [address] [phone] Elaina Boss PA 800 [facility] [address] [place] [phone] 02/10/2025 10:30 AM EDT Appointment [facility] 1 [address] [place] [phone] 02/11/2025 2:00 PM EDT Appointment [facility] 1 [address] [place] [address] 02/12/2025 2:00 PM EDT Appointment [facility] 1 [address] [place] [phone] 02/13/2025 2:00 PM EDT Appointment [facility] 1 [address] [place] [phone] 02/14/2025 2:00 PM EDT Appointment [facility] 1 [address] [place] [phone] 03/10/2025 8:30 AM EDT Clinical Support [facility] Hematology/BMT and Cellular Therapy Program [address] [phone] 03/10/2025 9:00 AM EDT Office Visit [facility] Hematology/BMT and Cellular Therapy Program [address] [phone] Isaura Wynn, POULTRY HUSBANDRY TEACHER 800 [facility] [address] [place] [phone] 03/10/2025 11:20 AM EDT Office Visit [facility] Head, Neck & Respiratory 800 [facility], 2nd [place] [phone] Elsa Razo, POULTRY HUSBANDRY TEACHER [address] [place] [phone] documented as of this encounter Procedures Procedure [...] ORDERABLE S Final Result BLOOD BANK 800 [place] [address], * Prepare Leukocyte Reduced RBC: 1 Units, Irradiated (12/20/2024 10:01 AM EDT) Product Code [id number] CH BLOO D BANK Dispense Status Transfused BLOOD BANK Blood Expiration Date [id number] BLOOD BANK Unit Number [id number] CH B LOOD BANK Product Blood Type 9500 BLOOD BANK Blood Type O- BLOOD BANK Crossmatch Compatible BLOOD BANK Other Kayli CHIU BLOOD BANK PRODUCT ORDER VIKAS Final Result BLOOD BANK 800 [place] [address], * (ABNORMAL) CBC and differential (12/20/2024 9:00 AM EDT) WBC Count 0.59(LL) 3.70 - 10.30 10*3/uL LAB HEMATOLOGY METHOD 12/20/2024 10:25 AM EDT [facility] RBC Count 2.46(L) 4.60 - 6.10 10*6/uL LAB HEMATOLOGY METHOD 12/20/2024 10:25 AM EDT [facility] HGB 7.8(L) 13.7 - 17.5 g/dL LAB HEMATOLOGY METHOD 12/20/2024 10:25 AM EDT [facility] HCT 22.0(L) 40.0 - 51.0 % LAB HEMATOLOGY METHOD 12/20/2024 10:25 AM EDT [facility] Platelet Count 22(L) 155 - 369 10*3/uL LAB HEMATOLOGY METHOD 12/20/2024 10:25 AM EDT [facility] MCV 89 79 - 98 fL LAB HEMATOLOGY METHOD 12/20/2024 10:25 AM EDT [facility] MCH 31.7 26.0 - 32.0 pg LAB HEMATOLOGY METHOD 12/20/2024 10:25 AM EDT [facility] MCHC 35.5 30.7 - 35.5 g/dL LAB HEMATOLOGY METHOD 12/20/2024 10:25 AM EDT [facility] RDW 16.0(H) 11.5 - 14.5 % LAB HEMATOLOGY METHOD 12/20/2024 10:25 AM EDT [facility] MPV 11.3 8.8 - 12.5 fL LAB HEMATOLOGY METHOD 12/20/2024 10:25 AM EDT [facility] nRBC 0.0 <=0.0 per 100 WBCs LAB HEMATOLOGY METHOD 12/20/2024 10:25 AM EDT [facility] Differential Type Automated LAB HEMATOLOGY METHOD 12/20/2024 10:25 AM EDT [facility] Neutrophils % 5 % LAB HEMATOLOGY METHOD 12/20/2024 10:25 AM EDT [facility] Lymphocytes % 92 % LAB HEMATOLOGY METHOD 12/20/2024 10:25 AM EDT [facility] Monocytes % 3 % LAB HEMATOLOGY METHOD 12/20/2024 10:25 AM EDT [facility] Eosinophils % 0 % LAB HEMATOLOGY METHOD 12/20/2024 10:25 AM EDT [facility] Basophils % 0 % LAB HEMATOLOGY METHOD 12/20/2024 10:25 AM EDT [facility] Immature Granulocytes % 0 % LAB HEMATOLOGY METHOD 12/20/2024 10:25 AM EDT [facility] Neutrophils Absolute 0.03(LL) 1.60 - 6.10 10*3/uL LAB HEMATOLOGY METHOD 12/20/2024 10:25 AM EDT [facility] Lymphocytes Absolute 0.54(L) 1.20 - 3.90 10*3/uL LAB HEMATOLOGY METHOD 12/20/2024 10:25 AM EDT [facility] Monocytes Absolute 0.02(L) 0.30 - 0.90 10*3/uL LAB HEMATOLOGY METHOD 12/20/2024 10:25 AM EDT [facility] Eosinophils Absolute 0.00 0.00 - 0.50 10*3/uL LAB HEMATOLOGY METHOD 12/20/2024 10:25 AM EDT [facility] Basophils Absolute 0.00 0.00 - 0.10 10*3/uL LAB HEMATOLOGY METHOD 12/20/2024 10:25 AM EDT [facility] Immature Granulocytes Absolute 0.00 0.00 - 0.06 10*3/uL LAB HEMATOLOGY METHOD 12/20/2024 10:25 AM EDT [facility] Blood Blood sample taken from central line / Unknown (Central Line) Existing Catheter / Unknown 12/20/2024 9:00 AM EDT 12/20/2024 9:13 AM EDT Narrative [facility] - 12/20/2024 10:25 AM EDT Therapeutic decision making should be based on absolute values, rather than percentages. us Christina Ramos MD LAB BLOOD ORDERABLES Final Resul t [facility] [address] [place] [address] documented in this encounter Visit Diagnoses Diagnosis [...] documented as of this encounter Care Teams Webbing Weaver Relationship Specialty Start Date End Date Zhao Harris MD [address] [place] [address] [place] [address] PCP - General 12/03/20 documented as of this encounter
--- OUTSIDE RECORDS SUMMARY | 2024-12-21 08:30 | XMS_ITS | Encounter Summary ---
Author Organization [facility] Address [address] [place] [address] Care Team Providers Care Residential Program Worker Name Role Phone Zhao Harris MD Primary Care Provider + [phone] Reason for Visit * Episode Based Medications (Routine) - Closed Specialty Diagnoses / Procedures Referred By Justice mcgee Referred To Contact Diagnoses Myelodysplasia (myelodysplastic syndrome) (CMS/HCC) Procedures Azacitidine Daily x 7 / Venetoclax Every 28 Days Virgen Vargas MD [address] [address] Phone: tel: fax: Virgen Vargas MD [address] [address] Phone: tel: fax: Referral ID Status Reason Start Date Expiration Date Visits Re quested Visits Authorized [id number] Closed 10/20/2024 04/21/2026 1 91 Encounter Details Date Type Department Care Team (Latest Contact Info) Description 12/21/2024 8:30 AM EDT - 12/21/2024 11:59 PM EDT Hospital Encounter [facility] Infusion Clinic 1 [address] [place] [phone] Myelodysplasia (myelodysplastic syndrome) (CMS/HCC) (Primary Dx) Discharge [...] drink first t manav in the morning (EYE-CLIENT REPORTING ASSOCIATE) to steady your nerves or to [...] 5 MG tabletIndications :Coronary artery disease involving [place] heart with angina pectoris, unspecified vessel or lesion type (CMS/HCC),Hyperte nsion, unspecified type Take 1 tablet (5 mg) by mouth daily. 90 tablet 3 09/11/2024 HYDROcodone-aceta minophen ([place]) 5-325 MG tablet Take 1 tablet by [...] MG SL tabletIndications :Coronary artery disease involving [place] heart with angina pectoris, unspecified vessel or [...] Appointment [facility] A Interventional Radiology [address] [place] [address] 02/10/2025 8:30 AM EDT Clinical Support [facility] Hematology/BMT and Cellular Therapy Program [address] [place] [phone] 02/10/2025 9:00 AM EDT Office Visit [facility] Hematology/BMT and Cellular Therapy Program [address] [address] Elaina Boss, ARAM 800 [facility] [address] [place] [address] 02/10/2025 10:30 AM EDT Appointment [facility] Infusion Clinic 1 [address] [place] [address] 02/11/2025 2:00 PM EDT Appointment [facility] Infusion Clinic 1 [address] [place] [address] 02/12/2025 2:00 PM EDT Appointment [facility] Infusion Clinic 1 [address] [place] [address] 02/13/2025 2:00 PM EDT Appointment [facility] Infusion Clinic 1 [address] [place] [address] 02/14/2025 2:00 PM EDT Appointment [facility] Infusion Clinic 1 [address] [place] [address] 03/10/2025 8:30 AM EDT Clinical Support [facility] Hematology/BMT and Cellular Therapy Program [address] [address] 03/10/2025 9:00 AM EDT Office Visit [facility] Hematology/BMT and Cellular Therapy Program [address] [address] Isaura Wynn, INTERNET MARKETING ASSISTANT 800 [facility] [address] [place] [phone] 03/10/2025 11:20 AM EDT Office Visit [facility] CC Head, Neck & Respiratory 800 [facility], 2nd [place] [phone] Elsa Razo, INTERNET MARKETING ASSISTANT 800 [place] [phone] documented as of this encounter Visit Diagnoses [...] documented as of this encounter Care Teams Residential Program Worker Relationship Specialty Start Date End Date Zhao Harris MD [address] [place] [address] PCP - General 12/03/20 documented as of this encounter
--- OUTSIDE RECORDS SUMMARY | 2024-12-22 08:24 | XMS_ITS | Encounter Summary ---
Author Organization [facility] Address [address] [place] [address] Care Team Providers Care Geoint Analyst Name Role Phone Zhao Harris MD Primary Care Provider + [phone] Reason for Visit * Episode Based Medications (Routine) - Closed Specialty Diagnoses / Procedures Referred By Justice mcgee Referred To Contact Diagnoses Myelodysplasia (myelodysplastic syndrome) (CMS/HCC) Procedures Azacitidine Daily x 7 / Venetoclax Every 28 Days Virgen Vargas MD 800 [facility] [address] [address] Phone: tel: fax: Virgen Vargas MD [address] [address] Phone: tel: fax: Referral ID Status Reason Start Date Expiration Date Visits Re quested Visits Authorized [id number] Closed 10/20/2024 04/21/2026 1 91 Encounter Details Date Type Department Care Team (Latest Contact Info) Description 12/22/2024 8:24 AM EDT - 12/22/2024 9:57 AM EDT Hospital Encounter [facility] H Infusion 800 [place] [phone] Myelodysplasia (myelodysplastic syndrome) (CMS/HCC) (Primary Dx); Thrombocytopenia [...] drink first t manav in the morning (EYE-BECK TENDER) to steady your nerves or to [...] Sign Reading Time Taken Comments Blood Pressure 117/75 12/22/2024 10:28 AM EDT Pulse 67 12/22/2024 10:28 AM EDT Temperature 36.7 C (98 F) 12/22/2024 10:28 AM EDT Respiratory Rate 18 12/22/2024 10:28 AM EDT Oxygen Saturation 100% 12/22/2024 10:28 AM EDT Inhaled Oxygen Concentration - - Weight 83.1 kg (183 lb 3.2 oz) 12/22/2024 8:26 A M EDT Height 170.2 cm (5' 7 ) 12/22/2024 8:26 AM EDT Body Mass Index 28.69 12/22/2024 8:26 AM EDT documented in this encounter Medications at Time of Discharge acyclovir (Zovirax) 800 MG tabletIndications :Myelodysplasia (myelodysplastic syndrome) (CMS/HCC) Take 1 tablet (800 mg) by mouth in the morning and 1 tablet (800 mg) before bedtime. 60 tablet 3 10/14/2024 bisoprolol (Zebeta) 5 MG tabletIndications :Coronary artery disease involving three affiliated heart with angina pectoris, unspecified vessel or lesion type (CMS/HCC),Hyperte nsion, unspecified type Take 1 tablet (5 mg) by mouth daily. 90 tablet 3 09/11/2024 HYDROcodone-aceta minophen ([place]) 5-325 MG tablet Take 1 tablet by [...] MG SL tabletIndications :Coronary artery disease involving three affiliated heart with angina pectoris, unspecified vessel or [...] * Addendum Note - Pilo Nolan - 12/22/2024 8:30 AM EDTEncounter addended by: Pilo Nolan on: 12/24/2024 3:09 PM Actions taken: Charge Capture section accepted documented in this encounter Plan of Treatment Upcoming Encounters Date Type Department Care Team ([facility] st Contact Info) Description 02/02/2025 11:00 AM EDT Appointment P[facility] A Interventional Radiology [address] [place] [address] 02/10/2025 8:30 AM EDT Clinical Support P[facility] CC Hematology/BMT and Cellular Therapy Program [address] [place] [address] 02/10/2025 9:00 AM EDT Office Visit [facility] Hematology/BMT and Cellular Therapy Program [address] [place] [address] Elaina Boss, ARAM 800 [facility] [address] [place] [phone] 02/10/2025 10:30 AM EDT Appointment [facility] In[facility] 1 [address] [place] [phone] 02/11/2025 2:00 PM EDT Appointment [facility] 1 [address] [place] [address] 02/12/2025 2:00 PM EDT Appointment [facility] 1 [address] [place] [address] 02/13/2025 2:00 PM EDT Appointment [facility] 1 [address] [place] [phone] 02/14/2025 2:00 PM EDT Appointment [facility] 1 [address] [place] [phone] 03/10/2025 8:30 AM EDT Clinical Support [facility] CC Hematology/BMT and Cellular Therapy Program [address] [phone] 03/10/2025 9:00 AM EDT Office Visit PAV Hematology/BMT and Cellular Therapy Program [address] [phone] Isaura Wynn, TRANSFORMER COIL WINDER 800 [facility] [address] [place] [phone] 03/10/2025 11:20 AM EDT Office Visit Pav CC Head, Neck & Respiratory 800 [facility], [address]nd [place] [phone] Elsa Razo, TRANSFORMER COIL WINDER [address] [place] [phone] documented as of this encounter Procedures Procedure Name Priority Date/Time Associated Diagnosis Comments PLATELET COUNT, BLOOD STAT 12/22/2024 10:57 AM EDT TRANSFUSE PLATELETS Routine 12/22/2024 1 0:13 AM EDT Myelodysplasia (myelodysplastic syndrome) (CMS/HCC) Thrombocytopenia (CMS/HCC) PREPARE PLATELETS Routine 12/22/2024 9:4 4 AM EDT Myelodysplasia (myelodysplastic syndrome) (CMS/HCC) Thrombocytopenia (CMS/HCC) CBC WITH AUTO DIFFERENTIAL Routine 12/22/2024 8:53 AM EDT Myelodysplasia (myelodysplastic syndrome) (CMS/HCC) COMPREHENSIVE METABOLIC PANEL, PLASMA Routine 12/22/2024 8:53 AM EDT Myelodysplasia (myelodysplastic syndrome) (CMS/HCC) documented in this encounter Results * Transfuse platelets (12/22/2024 12:04 PM EDT) Kayli CHIU BLOOD TRANSFUSION ORDERA BLES Final Result * Transfuse platelets: 1 Units (12/22/2024 12:04 PM EDT) Kayli CHIU BLOOD TRANSFUSION ORDERA BLES Final Result * (ABNORMAL) Platelet count (12/22/2024 10:57 AM EDT) [facility] Platelet Count 36(L) 155 - 369 10*3/uL LAB HEMATOLOGY METHOD 12/22/2024 11:14 AM EDT [facility] Blood Venous blood specimen / Unknown Venipuncture / Unknown 12/22/2024 10:57 AM EDT 12/22/2024 11:04 AM EDT Virgen Vargas MD LAB BLOOD ORDERABLES Final Re sult [facility] [address] [place] [address] * Prepare Leukocyte Reduced Platelets: 1 Units (12/22/2024 9:44 AM EDT) Pathologist [facility] Product Code H9549U93 BLOO D BANK Dispense Status Transfused BLOOD BANK Blood Expiration Date [id number] BLOOD BANK Unit Number [id number] B LOOD BANK Product Blood Type 0600 BLOOD BANK Blood Type A- CH BLOOD BANK Blood Venous blood specimen / Unknown us Kayli CHIU BLOOD BANK PRODUCT ORDER VIKAS Final Result BLOOD BANK [address] [place] [address], * (ABNORMAL) CBC and Differential (12/22/2024 8:53 AM EDT) WBC Count 0.50(LL) 3.70 - 10.30 10*3/uL LAB HEMATOLOGY METHOD 12/22/2024 11:33 AM EDT [facility] RBC Count 2.90(L) 4.60 - 6.10 10*6/uL LAB HEMATOLOGY METHOD 12/22/2024 11:33 AM EDT [facility] HGB 8.9(L) 13.7 - 17.5 g/dL LAB HEMATOLOGY METHOD 12/22/2024 11:33 AM EDT [facility] HCT 25.0(L) 40.0 - 51.0 % LAB HEMATOLOGY METHOD 12/22/2024 11:33 AM EDT [facility] Platelet Count 5(LL) 155 - 369 10*3/uL LAB HEMATOLOGY METHOD 12/22/2024 11:33 AM EDT [facility] MCV 86 79 - 98 fL LAB HEMATOLOGY METHOD 12/22/2024 11:33 AM EDT [facility] MCH 30.7 26.0 - 32.0 pg LAB HEMATOLOGY METHOD 12/22/2024 11:33 AM EDT [facility] MCHC 35.6(H) 30.7 - 35.5 g/dL LAB HEMATOLOGY METHOD 12/22/2024 11:33 AM EDT [facility] RDW 15.6(H) 11.5 - 14.5 % LAB HEMATOLOGY METHOD 12/22/2024 11:33 AM EDT [facility] MPV LAB HEMATOLOGY METHOD 12/22/2024 11:33 AM EDT [facility] Comment:Not Measured nRBC 0.0 <=0.0 per 100 WBCs LAB HEMATOLOGY METHOD 12/22/2024 11:33 AM EDT [facility] Differential Type Automated LAB HEMATOLOGY METHOD 12/22/2024 11:33 AM EDT [facility] Neutrophils % 12 % LAB HEMATOLOGY METHOD 12/22/2024 11:33 AM EDT [facility] Lymphocytes % 86 % LAB HEMATOLOGY METHOD 12/22/2024 11:33 AM EDT [facility] Monocytes % 2 % LAB HEMATOLOGY METHOD 12/22/2024 11:33 AM EDT [facility] Eosinophils % 0 % LAB HEMATOLOGY METHOD 12/22/2024 11:33 AM EDT [facility] Basophils % 0 % LAB HEMATOLOGY METHOD 12/22/2024 11:33 AM EDT [facility] Immature Granulocytes % 0 % LAB HEMATOLOGY METHOD 12/22/2024 11:33 AM EDT [facility] Neutrophils Absolute 0.06(LL) 1.60 - 6.10 10*3/uL LAB HEMATOLOGY METHOD 12/22/2024 11:33 AM EDT [facility] Lymphocytes Absolute 0.43(L) 1.20 - 3.90 10*3/uL LAB HEMATOLOGY METHOD 12/22/2024 11:33 AM EDT [facility] Monocytes Absolute 0.01(L) 0.30 - 0.90 10*3/uL LAB HEMATOLOGY METHOD 12/22/2024 11:33 AM EDT [facility] Eosinophils Absolute 0.00 0.00 - 0.50 10*3/uL LAB HEMATOLOGY METHOD 12/22/2024 11:33 AM EDT [facility] Basophils Absolute 0.00 0.00 - 0.10 10*3/uL LAB HEMATOLOGY METHOD 12/22/2024 11:33 AM EDT [facility] Immature Granulocytes Absolute 0.00 0.00 - 0.06 10*3/uL LAB HEMATOLOGY METHOD 12/22/2024 11:33 AM EDT [facility] Blood Venous blood specimen / Unknown Venipuncture / Unknown 12/22/2024 8:53 AM EDT 12/22/2024 8:59 AM EDT [facility] - 12/22/2024 11:33 AM EDT Therapeutic decision making should be based on absolute values, rather than percentages. us iVrgen Vargas MD LAB BLOOD ORDERABLES Final Re sult [facility] [address] [place] [address] * (ABNORMAL) Comprehensive Metabolic Panel, Plasma (12/22/2024 8:53 AM EDT) Glucose, Plasma 107(H) 74 - 99 mg/dL 12/22/2024 9:29 AM EDT [facility] BUN, Plasma 14 8 - 23 mg/dL 12/22/2024 9:29 AM EDT [facility] Creatinine, Plasma 0.93 0.70 - 1.20 mg/dL 12/22/2024 9:29 AM EDT [facility] BUN/Creatinine Ratio 15 12/22/2024 9:29 AM EDT [facility] Sodium, Plasma 136 136 - 145 mmol/L 12/22/2024 9:29 AM EDT [facility] Potassium, Plasma 4.3 3.6 - 4.9 mmol/L 12/22/2024 9:29 AM EDT [facility] Chloride, Plasma 106 97 - 107 mmol/L 12/22/2024 9:29 AM EDT [facility] CO2, Plasma 22 22 - 29 mmol/L 12/22/2024 9:29 AM EDT [facility] Anion Gap 8 6 - 16 mmol/L 12/22/2024 9:29 AM EDT [facility] Total Calcium, Plasma 9.1 8.9 - 10.2 mg/dL 12/22/2024 9:29 AM EDT [facility] Total Protein 7.0 6.3 - 7.9 g/dL 12/22/2024 9:29 AM EDT [facility] Albumin, Plasma 3.9 3.5 - 5.2 g/dL 12/22/2024 9:29 AM EDT [facility] AST, Plasma 16 10 - 50 U/L 12/22/2024 9:29 AM EDT [facility] ALT, Plasma 12 10 - 50 U/L 12/22/2024 9:29 AM EDT [facility] Alkaline Phosphatase, Plasma 83 40 - 115 U/L 12/22/2024 9:29 AM EDT [facility] Total Bilirubin, Plasma 0.7 0.2 - 1.1 mg/dL 12/22/2024 9:29 AM EDT [facility] eGFRcr 88.9 mL/min/1.7 3m*2 12/22/2024 9:29 AM EDT [facility] Comment:Reported eGFRcr in m L/min/1.73m2 is based the CKD-EPI 2020 equation that does not use a race coefficient. Blood Venous blood specimen / Unknown Venipuncture / Unknown 12/22/2024 8:53 AM EDT 12/22/2024 8:59 AM EDT us Virgen Vargas MD LAB BLOOD ORDERABLES Final Re sult [facility] [address] [place] [address] documented in this encounter Visit Diagnoses Diagnosis [...] Waste Container. Chemotherapy: refer to [id number]., On Sun12/22/24 at 0915, For 1 dose, In 50 mL NSIndications:Myelodysplasia (myelodysplastic syndrome) (CMS/HCC) New Bag 12/22/2024 9:08 AM EDT 150 mg 540 mL/hr ondansetron ODT (Zofran-ODT) disintegrating tablet 16 mg 16 mg, Oral, Once, 1 dose, On Sun12/22/24 at 0845, RoutineIndications:Myelodyspla haim (myelodysplastic syndrome) (CMS/HCC) Given 12/22/2024 8:45 AM EDT 16 mg documented in this encounter Additional Health Concerns Assessment Noted Time PHQ-9 Depression Total Score: 0 09/11/19 25 9:15 AM EST A fall risk assessment has been complete d for the patient 12/22/2024 8:26 AM EDT A Body Mass Index follow-up plan has been documented for the patient 12/16/2024 12:23 PM EDT documented as of this encounter Care Teams Geoint Analyst Relationship Specialty Start Date End Date Zhao Harris MD [address] [place] [address] PCP - General 12/03/20 documented as of this encounter
--- OUTSIDE RECORDS SUMMARY | 2024-12-22 09:58 | XMS_ITS | Encounter Summary ---
Author Organization [facility] Address [address] [place] [address] Care Team Providers Care Route Carrier Name Role Phone Zhao Harris MD Primary Care Provider [phone] Encounter Details Date Type Department Care Team (Latest Contact Info) Description 12/22/2024 9:58 AM EDT - 12/22/2024 11:59 PM EDT Hospital Encounter [facility] H Infusion [address] [place] [address] Myelodysplasia (myelodysplastic syndrome) (CMS/HCC) (Primary Dx) Discharge [...] first t manav in the morning (EYE-COLLEGE FOOTBALL COACH) to steady your nerves or to get [...] Reading Time Taken Comments Blood Pressure 131/82 12/22/2024 10:52 AM EDT Pulse 68 12/22/2024 10:52 AM EDT Temperature - - Respiratory Rate 18 12/22/2024 10:52 AM EDT Oxygen Saturation 100% 12/22/2024 10:52 AM EDT Inhaled Oxygen Concentration - - [...] daily. 90 tablet 3 09/11/2024 HYDROcodone-aceta minophen ([place]) 5-325 MG tablet Take 1 tablet by [...] Appointment PAV A Interventional Radiology [address] [place] [address] 02/10/2025 8:30 AM EDT Clinical Support PAV Hematology/BMT and Cellular Therapy Program [address] [phone] 02/10/2025 9:00 AM EDT Office Visit PAV Hematology/BMT and Cellular Therapy Program [address] [phone] Elaina Boss, [place] 800 [facility] [address] [place] [phone] 02/10/2025 10:30 AM EDT Appointment [facility] Infusion Clinic 1 [address] [place] [address] 02/11/2025 2:00 PM EDT Appointment [facility] Infusion [facility] 1 [address] [place] [address] 02/12/2025 2:00 PM EDT Appointment [facility] Infusion [facility] 1 [address] [place] [address] 02/13/2025 2:00 PM EDT Appointment [facility] Infusion [facility] 1 [address] [place] [address] 02/14/2025 2:00 PM EDT Appointment [facility] Infusion Clinic 1 [address] [place] [address] 03/10/2025 8:30 AM EDT Clinical Support [facility] Hematology/BMT and Cellular Therapy Program [address] [phone] 03/10/2025 9:00 AM EDT Office Visit PAV Hematology/BMT and Cellular Therapy Program [address] [phone] Isaura Wynn, ESTRELLA 800 [facility] [address] [place] [phone] 03/10/2025 11:20 AM EDT Office Visit Pav CC Head, Neck & Respiratory 800 [facility], [address]nd [place] [address] Elsa Razo, EXHIBIT TECHNICIAN [address] [place] [address] documented as of this encounter Visit Diagnoses [...] documented as of this encounter Care Teams Route Carrier Relationship Specialty Start Date End Date Zhao Harris MD [facility] [address] [address] PCP - General 12/03/20 documented as of this encounter
--- OUTSIDE RECORDS SUMMARY | 2025-01-06 08:30 | XMS_ITS | Encounter Summary ---
Author Organization [facility] Address [address] [place] [address] Care Team Providers Care Web Services Architect Name Role Phone Zhao Harris MD Primary Care Provider [phone] Reason for Visit * Reason Comments Labs Encounter Details Date Type Department Care Team ([facility] st Contact Info) Description 01/06/2025 8:30 AM EDT Clinical Support PAV CC Hematology/BMT and Cellular Therapy Program [address] [place] [address] [place] [address] Nate Ponce, RN Social History Tobacco Use [...] first t manav in the morning (EYE-HYDRAULIC CONTROLS TECHNICIAN) to steady your nerves or to [...] ([facility] st Contact Info) Description 02/02/2025 11:00 AM EDT Appointment PAV A Interventional Radiology [address] [place] [address] 02/10/2025 8:30 AM EDT Clinical Support PAV Hematology/BMT and Cellular Therapy Program [address] [place] [address] 02/10/2025 9:00 AM EDT Office Visit PAV Hematology/BMT and Cellular Therapy Program [address] [address] Elaina Boss, PA 800 [facility] [address] [place] [address] 02/10/2025 10:30 AM EDT Appointment [facility] Infusion [facility] 1 [address] [place] [address] 02/11/2025 2:00 PM EDT Appointment [facility] Infusion [facility] 1 [address] [place] [address] 02/12/2025 2:00 PM EDT Appointment [facility]fusion [facility] 1 [address] [place] [address] 02/13/2025 2:00 PM EDT Appointment [facility]fusion [facility] 1 [address] [place] [address] 02/14/2025 2:00 PM EDT Appointment [facility]fusion [facility] 1 [address] [place] [address] 03/10/2025 8:30 AM EDT Clinical Support PAV CC Hematology/BMT and Cellular Therapy Program 750 [facility], [facility] [place] [phone] 03/10/2025 9:00 AM EDT Office Visit PAV CC Hematology/BMT and Cellular Therapy Program 750 [facility], [address] [place] [address] Isaura Wynn, OTHER SPORTS OFFICIAL 800 [facility] [address] [place] [address] 03/10/2025 11:20 AM EDT Office Visit Pav CC Head, Neck & Respiratory 800 [facility], 2nd [place] [phone] Elsa Razo, OTHER SPORTS OFFICIAL 800 [place] [address] documented as of this encounter Visit Diagnoses [...] as of this encounter Care Teams Web Services Architect Relationship Specialty Start Date End Date Zhao Harris MD [address] [place] [address] PCP - General 12/03/20 documented as of this encounter
--- OUTSIDE RECORDS SUMMARY | 2025-01-06 09:00 | XMS_ITS | Encounter Summary ---
Author Organization [facility] Address [address] [place] [address] Care Team Providers Care Byproducts Supervisor Name Role Phone Zhao Harris MD Primary Care Provider [phone] Reason for Visit * Reason Comments Procedure * Genetic Testing (Routine) - Authorized Specialty Diagnoses / Procedures Referred By Justice mcgee Referred To Contact Lab Diagnoses Myelodysplasia (myelodysplastic syndrome) (CMS/HCC) Procedures Leukemia/Lymphoma - Immunophenotyping by Flow Cytometry Virgen Vargas MD [address] [facility] [address] [address] Phone: tel: fax: Referral ID Status Reason Start Date Expiration Date V isits Requested Visits Authorized [id number] Authorized 12/18/2024 06/19/2026 1 1 Encounter Details Date Type Department Care Team (Latest Contact Info) Description 01/06/2025 9:00 AM EDT Procedure Visit [facility] Hematology/BMT and Cellular Therapy Program [address] [place] [address] Kierra Novak APRN [address] [facility] [address] [address] Myelodysplasia (myelodysplastic syndrome) (CMS/HCC) Social [...] drink first t manav in the morning (EYE-DATA RECOVERY PLANNER) to steady your nerves or to get [...] Sign Reading Time Taken Comments Blood Pressure 123/70 01/06/2025 8:56 AM EDT Pulse 69 01/06/2025 8:56 AM EDT Temperature 36.7 C (98.1 F) 01/06/2025 8:56 AM EDT Respiratory Rate 16 01/06/2025 8:56 AM EDT Oxygen Saturation 98% 01/06/2025 8:56 AM EDT Inhaled Oxygen Concentration - - Weight 83.7 kg (184 lb 8.4 oz) 01/06/2025 8:56 A M EDT Height 170.2 cm (5' 7.01 ) 01/06/2025 8:56 AM ED T Body Mass Index 28.89 01/06/2025 8:56 AM EDT documented in this encounter Miscellaneous Notes * Progress Notes - Kierra Novak APRN - 01/06/2025 9:00 AM EDTAssociated Order(s): Biopsy bone marrow Post-Procedure Diagnose(s): Myelodysplasia (myelodysplastic syndrome) (CMS/HCC) Patient ID: Hugo Lyons is a 69 y.o. male. Encounter Diagnosis Name Primary? Myelodysplasia (myelodysplastic syndrome) (CMS/HCC) Biopsy bone marrow Date/Time: 01/06/2025 10:00 AM Performed by: Kierra Novak APRN Authorized by: Kierra Novak APRN Consent: Consent obtained: Written Consent given by: Patient Risks, benefits, and alternatives were discussed: yes Risks discussed: Bleeding, infection and pain Scott protocol: Procedure explained and questions answered to patient or proxy's satisfaction: yes Site/side marked: yes Immediately prior to procedure, a time out was called: yes Patient identity confirmed: Verbally with patient, arm band and hospital- assigned identification number Indications: Indications: Myelodysplastic Syndrome Pre-procedure details: Skin preparation: Povidone-iodine Sedation: Sedation type: None Anesthesia: Anesthesia method: Local infiltration Local anesthetic: Lidocaine 1% w/o epi Procedure specific details: Pt was assisted to prone position. Specimen (core and aspiration) obtained from left iliac crest spine. Post-procedure details: Procedure completion: Tolerated well, no immediate complications documented in this encounter Plan of Treatment Upcoming Encounters Date Type Department Care Team ([facility] st Contact Info) Description 02/02/2025 11:00 AM EDT Appointment [facility] A Interventional Radiology [address] [place] [address] 02/10/2025 8:30 AM EDT Clinical Support [facility] Hematology/BMT and Cellular Therapy Program [address] [phone] 02/10/2025 9:00 AM EDT Office Visit [facility] Hematology/BMT and Cellular Therapy Program [address] [phone] Elaina Boss PA 800 [facility] [address] [place] [phone] 02/10/2025 10:30 AM EDT Appointment [facility] Infusion [facility] 1 [address] [place] [address] 02/11/2025 2:00 PM EDT Appointment [facility] 1 [address] [place] [address] 02/12/2025 2:00 PM EDT Appointment [facility] 1 [address] [place] [address] 02/13/2025 2:00 PM EDT Appointment [facility] 1 [address] [place] [address] 02/14/2025 2:00 PM EDT Appointment [facility] 1 [address] [place] [address] 03/10/2025 8:30 AM EDT Clinical Support [facility] Hematology/BMT and Cellular Therapy Program [address] [address] 03/10/2025 9:00 AM EDT Office Visit [facility] Hematology/BMT and Cellular Therapy Program [address] [phone] Isaura Wynn, SUCKER MACHINE OPERATOR [address] [facility] [address] [place] [phone] 03/10/2025 11:20 AM EDT Office Visit [facility] CC Head, Neck & Respiratory [address] [facility], [address] [place] [address] Elsa Razo, SUCKER MACHINE OPERATOR [address] [place] [phone] documented as of this encounter Procedures Procedure Name Priority Date/Time Associated Diagnosis Comments BIOPSY BONE MARROW Routine 01/06/2025 10 :00 AM EDT Myelodysplasia (myelodysplastic syndrome) (CMS/HCC) LEUKEMIA/LYMPHOMA - IMMUNOPHENOTYPING BY FLOW CYTOMETRY Routine 01/06/2025 9:48 AM EDT Myelodysplasia (myelodysplastic syndrome) (CMS/HCC) BONE MARROW EXAM Routine 01/06/2025 9:48 AM EDT Myelodysplasia (myelodysplastic syndrome) (CMS/HCC) CBC WITH AUTO DIFFERENTIAL Routine 01/06/2025 8:49 AM EDT Myelodysplasia (myelodysplastic syndrome) (CMS/HCC) COMPREHENSIVE METABOLIC PANEL, PLASMA Routine 01/06/2025 8:49 AM EDT Myelodysplasia (myelodysplastic syndrome) (CMS/HCC) documented in this encounter Results * BIOPSY BONE MARROW (01/06/2025 10:00 AM EDT) Narrative Kierra Novak APRN - 01/06/2025 10:00 AM EDT Kierra Novak APRN 01/06/2025 10:24 AM Biopsy bone marrow Date/Time: 01/06/2025 10:00 AM Performed by: Kierra Novak APRN Authorized by: Kierra Novak APRN Consent: Consent obtained: Written Consent given by: Patient Risks, benefits, and alternatives were discussed: yes Risks discussed: Bleeding, infection and pain Scott protocol: Procedure explained and questions answered to patient or proxy's satisfaction: yes Site/side marked: yes Immediately prior to procedure, a time out was called: yes Patient identity confirmed: Verbally with patient, arm band and hospital-assigned identification number Indications: Indications: Myelodysplastic Syndrome Pre-procedure details: Skin preparation: Povidone-iodine Sedation: Sedation type: None Anesthesia: Anesthesia method: Local infiltration Local anesthetic: Lidocaine 1% w/o epi Procedure specific details: Pt was assisted to prone position. Specimen (core and aspiration) obtained from left iliac crest spine. Post-procedure details: Procedure completion: Tolerated well, no immediate complications Kierra Novak APRN IN CLINIC/BEDSIDE ORDERAB LES Final Result * Leukemia/Lymphoma - Immunophenotyping by Flow Cytometry (01/06/2025 9:48 AM EDT) Pathologist [facility] Clinical Indication AML 01/07/2025 10:18 AM T [facility] Flow Cytometry Interpretation APPROXIMATELY 16% MYELOID BLASTS; EXPRESSING CD34, CD117, CD13, CD33, HLA-DR, PARTIAL CD7, PARTIAL CD123, VARIABLE CD38, AND MODERATE CD45, SEE COMMENT, BONE MARROW ASPIRATE. 01/07/2025 10:18 AM EDT [facility] Comments Specimen viability is [...] disease. Final interpretation requires morphologic correlation (BM [id number]). The following antibodies were used in this analysis: CD45, CD2, CD3, CD4, CD5, CD7, CD8, CD10, CD13, CD14, CD15, CD16, CD19, CD20, CD33, CD34, CD38, CD56, CD117, HLA-DR, kappa surface light chains, lambda surface light chains, CD123 01/07/2025 10:18 AM [facility] Disclaimer This test was developed and its performance characteristics determined by the Immuno-Molecular Pathology Laboratory at the [facility]. It has not been cleared [...] complexity clinical laboratory testing. 01/07/2025 10:18 AM [facility] Pathologist Signature Reviewed by: Tessie Peralta MD 01/07/2025 10:18 AM [facility] MRD Indicated Test Not Indicated 06/ 10:18 AM EDT [facility] Bone Marrow Specimen from bone marrow obtained by aspiration / Unknown Non-blood Collection / Unknown 01/06/2025 9:48 AM EDT 01/06/2025 11:20 AM EDT Virgen Vargas MD LAB FLOW CYTOMETRY ORDERABLES Final Result [facility] [address] [place] [address] * Bone marrow exam (01/06/2025 9:48 AM EDT) Case Report Bone Marrow Case: [id number] Authorizing Provider: Virgen Vargas MD Collected: 01/06/2025 0948 Ordering Location: [facility] Hematology/BMT and Received: 01/06/2025 1108 Cellular Therapy Program Pathologist: Tessie Peralta MD Specimens: A) - Bone Marrow Aspirate, left B) - Bone Marrow Biopsy, left C) - Peripheral Blood for Bone Marrow 6:13 PM EDT [facility] Final Diagnosis BONE MARROW, LEFT POSTERIOR ILIAC CREST, (PERIPHERAL SMEAR, ASPIRATE SMEARS, AND CORE BIOPSY): - MILDLY HYPOCELLULAR BONE MARROW WITH ERYTHROID HYPERPLASIA, MARKEDLY REDUCED GRANULOPOIESIS, PERSISTENT DYSPOIESIS AND 10% BLASTS, SEE COMMENT. 6:13 PM EDT [facility] at 1813 EDT Comment The marrow cellularity is composed of erythroid cells with markedly reduced granulopoiesis and decreased megakaryocytes. Persistent trilineage dyspoiesis is noted. The blast percentages are higher by flow cytometry analysis as the majority of marrow cellularity consists of erythroid precursors that are removed by flow cytometry. 6:13 PM EDT [facility] Clinical Information AML 12/22 6:13 PM EDT [facility] CBC and Differential PERIPHERAL [...] circulating blasts are identified. 6:13 PM EDT [facility] Bone Marrow Differential BONE MARROW DIFFERENTIAL: 400 cells Normal Patient Neutrophils 15-50 0 Metamyelocytes 4-19 1 Myelocytes 1-18 2 Promyelocytes 1-8 1 Blasts 0-2 10 Monocytes 0-5 0 Erythroid 16-38 73 Lymphocytes 3-24 4 Eosinophils 0-6 1 Basophils 0-2 0 Plasma cells 0-4 8 Other 6:13 PM EDT [facility] Bone Marrow Aspirate and Biopsy Core biopsy [...] granulomas are identified. Bone trabeculae are unremarkable. 6:13 PM T [facility] Special and Immunohistochemical Stains Immunohistochemica l stains [...] at the [facility], [address] [place] [address]. All tests reported here, except those addressing [...] on decalcified specimens. 5 6:13 PM EDT [facility] Flow Cytometry Interpretation APPROXIMATELY 16% MYELOID BLASTS; EXPRESSING CD34, CD117, CD13, CD33, HLA-DR, PARTIAL CD7, PARTIAL CD123, VARIABLE CD38, AND MODERATE CD45, SEE COMMENT, BONE MARROW ASPIRATE ([id number]) 5 6:13 PM EDT [facility] Gross Description B. LEFT A single specimen is received in formalin labeled bone marrow biopsy left posterior iliac crest and consists of 2 piece(s) of tissue measuring 0.8/0.2 cm in length 0.2 cm in diameter. The specimen is submitted in to Histology for decalcification and routine processing. Cold Time: <1m 5 6:13 PM EDT [facility] Note: A resident was involved in the service. I attest I examined the relevant preparations for the specimens and confirmed the diagnosis or interpretation. 5 6:13 PM EDT [facility] Bone Marrow Peripheral blood [...] MD LAB PATHOLOGY ORDERABLES Terri lara Result [facility] [address] [place] [address] * (ABNORMAL) Comprehensive metabolic panel (01/06/2025 8:49 AM EDT) Glucose, Plasma 100(H) 74 - 99 mg/dL 01/06/2025 9:34 AM EDT [facility] BUN, Plasma 8 8 - 23 mg/dL 01/06/2025 9:34 AM EDT [facility] Creatinine, Plasma 0.76 0.70 - 1.20 mg/dL 01/06/2025 9:34 AM EDT [facility] BUN/Creatinine Ratio 11 01/06/2025 9:34 AM EDT [facility] Sodium, Plasma 138 136 - 145 mmol/L 01/06/2025 9:34 AM EDT [facility] Potassium, Plasma 4.3 3.6 - 4.9 mmol/L 01/06/2025 9:34 AM EDT [facility] Chloride, Plasma 109(H) 97 - 107 mmol/L 01/06/2025 9:34 AM EDT [facility] CO2, Plasma 21(L) 22 - 29 mmol/L 01/06/2025 9:34 AM EDT [facility] Anion Gap 8 6 - 16 mmol/L 01/06/2025 9:34 AM EDT [facility] Total Calcium, Plasma 8.8(L) 8.9 - 10.2 mg/dL 01/06/2025 9:34 AM EDT [facility] Total Protein 6.6 6.3 - 7.9 g/dL 01/06/2025 9:34 AM EDT [facility] Albumin, Plasma 3.9 3.5 - 5.2 g/dL 01/06/2025 9:34 AM EDT [facility] AST, Plasma 25 10 - 50 U/L 01/06/2025 9:34 AM EDT [facility] ALT, Plasma 28 10 - 50 U/L 01/06/2025 9:34 AM EDT [facility] Alkaline Phosphatase, Plasma 83 40 - 115 U/L 01/06/2025 9:34 AM EDT [facility] Total Bilirubin, Plasma 0.5 0.2 - 1.1 mg/dL 01/06/2025 9:34 AM EDT [facility] eGFRcr 97.3 mL/min/1.7 3m*2 01/06/2025 9:34 AM EDT [facility] Comment:Reported eGFRcr in m L/min/1.73m2 is based the CKD-EPI 2020 equation that does not use a race coefficient. Blood Venous blood specimen / Unknown Venipuncture / Unknown 01/06/2025 8:49 AM EDT 01/06/2025 9:01 AM EDT us Christina Ramos MD LAB BLOOD ORDERABLES Final Resul t [facility] [address] [place] [address] * (ABNORMAL) CBC and differential (01/06/2025 8:49 AM EDT) WBC Count 0.59(LL) 3.70 - 10.30 10*3/uL LAB HEMATOLOGY METHOD 01/06/2025 11:36 AM EDT [facility] RBC Count 2.95(L) 4.60 - 6.10 10*6/uL LAB HEMATOLOGY METHOD 01/06/2025 11:36 AM EDT [facility] HGB 8.8(L) 13.7 - 17.5 g/dL LAB HEMATOLOGY METHOD 01/06/2025 11:36 AM EDT [facility] HCT 25.3(L) 40.0 - 51.0 % LAB HEMATOLOGY METHOD 01/06/2025 11:36 AM EDT [facility] Platelet Count 75(L) 155 - 369 10*3/uL LAB HEMATOLOGY METHOD 01/06/2025 11:36 AM EDT [facility] MCV 86 79 - 98 fL LAB HEMATOLOGY METHOD 01/06/2025 11:36 AM EDT [facility] MCH 29.8 26.0 - 32.0 pg LAB HEMATOLOGY METHOD 01/06/2025 11:36 AM EDT [facility] MCHC 34.8 30.7 - 35.5 g/dL LAB HEMATOLOGY METHOD 01/06/2025 11:36 AM EDT [facility] RDW 14.6(H) 11.5 - 14.5 % LAB HEMATOLOGY METHOD 01/06/2025 11:36 AM EDT [facility] MPV 10.7 8.8 - 12.5 fL LAB HEMATOLOGY METHOD 01/06/2025 11:36 AM EDT [facility] nRBC 3.4(H) <=0.0 per 100 WBCs LAB HEMATOLOGY METHOD 01/06/2025 11:36 AM EDT [facility] Differential Type Automated LAB HEMATOLOGY METHOD 01/06/2025 11:36 AM EDT [facility] Neutrophils % 5 % LAB HEMATOLOGY METHOD 01/06/2025 11:36 AM EDT [facility] Lymphocytes % 88 % LAB HEMATOLOGY METHOD 01/06/2025 11:36 AM EDT [facility] Monocytes % 7 % LAB HEMATOLOGY METHOD 01/06/2025 11:36 AM EDT [facility] Eosinophils % 0 % LAB HEMATOLOGY METHOD 01/06/2025 11:36 AM EDT [facility] Basophils % 0 % LAB HEMATOLOGY METHOD 01/06/2025 11:36 AM EDT [facility] Immature Granulocytes % 0 % LAB HEMATOLOGY METHOD 01/06/2025 11:36 AM EDT [facility] Neutrophils Absolute 0.03(LL) 1.60 - 6.10 10*3/uL LAB HEMATOLOGY METHOD 01/06/2025 11:36 AM EDT [facility] Lymphocytes Absolute 0.52(L) 1.20 - 3.90 10*3/uL LAB HEMATOLOGY METHOD 01/06/2025 11:36 AM EDT [facility] Monocytes Absolute 0.04(L) 0.30 - 0.90 10*3/uL LAB HEMATOLOGY METHOD 01/06/2025 11:36 AM EDT [facility] Eosinophils Absolute 0.00 0.00 - 0.50 10*3/uL LAB HEMATOLOGY METHOD 01/06/2025 11:36 AM EDT [facility] Basophils Absolute 0.00 0.00 - 0.10 10*3/uL LAB HEMATOLOGY METHOD 01/06/2025 11:36 AM EDT [facility] Immature Granulocytes Absolute 0.00 0.00 - 0.06 10*3/uL LAB HEMATOLOGY METHOD 01/06/2025 11:36 AM EDT [facility] Blood Venous blood specimen / Unknown Venipuncture / Unknown 01/06/2025 8:49 AM EDT 01/06/2025 9:01 AM EDT Narrative [facility] - 01/06/2025 11:36 AM EDT Therapeutic decision making should be based on absolute values, rather than percentages. us Christina Ramos MD LAB BLOOD ORDERABLES Final Resul t [facility] [address] [place] [address] documented in this encounter Visit Diagnoses Diagnosis [...] documented as of this encounter Care Teams Byproducts Supervisor Relationship Specialty Start Date End Date Zhao Harris MD [facility] [address] [place] [address] PCP - General 12/03/20 documented as of this encounter
--- OUTSIDE RECORDS SUMMARY | 2025-01-13 09:30 | XMS_ITS | Encounter Summary ---
Author Organization [facility] Address [address] [place] [address] Care Team Providers Care Row Boss Name Role Phone Zhao Harris MD Primary Care Provider [phone] Reason for Visit * Reason Comments Nurse Visit Labs Encounter Details Date Type Department Care Team ([facility] Contact Info) Description 01/13/2025 9:30 AM EDT Clinical Support P[facility] CC Hematology/BMT and Cellular Therapy Program [address] [place] [address] [place] [address] Social History Tobacco Use Types Packs/Day Years [...] first t manav in the morning (EYE-PHOTO TECHNOLOGIST) to steady your nerves or to [...] Appointment PAV A Interventional Radiology [address] [place] [address] 02/10/2025 8:30 AM EDT Clinical Support P[facility] CC Hematology/BMT and Cellular Therapy Program [address] [address] 02/10/2025 9:00 AM EDT Office Visit PAV Hematology/BMT and Cellular Therapy Program [address] [address] Elaina Boss, PA 800 [facility] [address] [place] [address] 02/10/2025 10:30 AM EDT Appointment [facility]fusion [facility] 1 7[address] [place] [address] 02/11/2025 2:00 PM EDT Appointment [facility]fusion [facility] 1 [address] [place] [address] 02/12/2025 2:00 PM EDT Appointment [facility]fusion [facility] 1 [address] [place] [address] 02/13/2025 2:00 PM EDT Appointment [facility] 1 [address] [place] [address] 02/14/2025 2:00 PM EDT Appointment [facility]fusion [facility] 1 [address] [place] [address] 03/10/2025 8:30 AM EDT Clinical Support PAV CC Hematology/BMT and Cellular Therapy Program [address] [place] [address] 03/10/2025 9:00 AM EDT Office Visit P[facility] CC Hematology/BMT and Cellular Therapy Program 750 [facility] [place] [address] Isaura Wynn, DIRECTOR TRIAL 800 [facility] [address]st [place] [address] 03/10/2025 11:20 AM EDT Office Visit Pav CC Head, Neck & Respiratory 800 [facility], 2nd [place] [address] Elsa Razo, DIRECTOR TRIAL 800 [place] [address] documented as of this encounter Visit Diagnoses [...] documented as of this encounter Care Teams Row Boss Relationship Specialty Start Date End Date Zhao Harris MD [address] [place] [address] [phone] PCP - General 12/03/20 documented as of this encounter
--- OUTSIDE RECORDS SUMMARY | 2025-01-13 10:00 | XMS_ITS | Encounter Summary ---
Author Organization [facility] Address [address] [place] [address] Care Team Providers Care Food Processor Name Role Phone Zhao Harris MD Primary Care Provider [phone] Reason for Referral * Imaging (Routine) - Pending Review Specialty Diagnoses / Procedures Referred By Justice t Referred To Contact Radiology Diagnoses Myelodysplasia (myelodysplastic syndrome) (CMS/HCC) Procedures CT Guided Asp and Biopsy Bone Marrow Consult to Interventional Radiology Virgen Vargas MD 800 [facility] [address] [address] Phone: tel: fax: Referral ID Status Reason Start Date Expiration Date V isits Requested Visits Authorized [id number] Pending Review 01/15/2025 07/17/2026 1 1 * Genetic Testing (Routine) - Pending Review Specialty Diagnoses / Procedures Referred By Justice mcgee Referred To Contact Lab Diagnoses Myelodysplasia (myelodysplastic syndrome) (CMS/HCC) Procedures Cytogenetics Testing, Oncology Virgen Vargas MD [address] [address] Phone: tel: fax: Referral ID Status Reason Start Date Expiration Date V isits Requested Visits Authorized [id number] Pending Review 01/13/2025 07/15/2026 1 1 * Genetic Testing (Routine) - Authorized Specialty Diagnoses / Procedures Referred By Justice mcgee Referred To Contact Lab Diagnoses Myelodysplasia (myelodysplastic syndrome) (CMS/HCC) Procedures Leukemia/Lymphoma - Immunophenotyping by Flow Cytometry Virgen Vargas MD [address] [address] Phone: tel: fax: Referral ID Status Reason Start Date Expiration Date V isits Requested Visits Authorized [id number] Authorized 01/13/2025 07/15/2026 1 1 * Genetic Testing (Routine) - Authorized Specialty Diagnoses / Procedures Referred By Justice mcgee Referred To Contact Lab Diagnoses Myelodysplasia (myelodysplastic syndrome) (CMS/HCC) Procedures Bone marrow exam Virgen Vargas MD [address] [address] Phone: tel: fax: Referral ID Status Reason Start Date Expiration Date V isits Requested Visits Authorized [id number] Authorized 01/13/2025 07/15/2026 1 1 Reason for Visit * Reason Comments Follow-up Encounter Details Date Type Department Care Team (Latest Contact Info) Description 01/13/2025 10:00 AM EDT Office Visit [facility] Hematology/BMT and Cellular Therapy Program [address] [place] [address] Isaura Wynn, ESTRELLA [address] [address] Myelodysplasia (myelodysplastic syndrome) (CMS/HCC) (Primary [...] drink first t manav in the morning ([employer]) to steady your nerves or to get [...] Not at all 01/13/2025 10:14 AM EDT Newfane, Cecelia W Feeling down, depressed, or hopeless Several days 01/13/2025 10:14 AM EDT Newfane, Cecelia W Patient Health Questionnaire -2 Score 1 01/13/2025 10:14 AM EDT Newfane, Cecelia W * Calculated C-SSRS Risk Score (Lifetime/Recent) Answer Date of Assessment Author No Risk Indicated 01/13/2025 10:14 AM EDT Chikarthik n Cecelia W * Question Answer Date of Assessment Author 1. Wish to be (Past 1 Month) No 025 10:14 AM EDT Emily Cecelia W 2. Non-Specific Active Suici berry [...] 3: 12/16/24 Plan: Venetoclax rx sent to [facility]. Refills due monthly. Patient will return to clinic in 4 weeks. Will follow-up at that time. * Progress Notes - Isaura Wynn, SKIN DRIER - 01/13/2025 10:00 AM EDT HEMATOLOGY ONCOLOGY [...] a preserved mata-T cell profile with a CD4:AC4jtfza of 2.7:1. Polyclonal B-cells (3%) and a small plasma cell population (0.6%) were also identified. Cytogenetics: Normal. Molecular Testing: PCR for NPM1 and FLT3 mutations are negative. Next-generation sequencing (NGS) myeloid panel: ASXL1 - [id number] - VAF 25% TP53 - p.[id number] - VAF 36% U2AF1 - p.[id number] - VAF 33% 10/20/2024- started treatment with [...] [place]. 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 The third, and most promising, option would be enrollment in a clinical trial, ideally one that targets TP53- mutant disease or incorporates novel agents. He went to [facility] for a second opinion and to [...] daily., Disp: 90 tablet, Rfl: 3 HYDROcodone-acetaminophen ([place]) 5-325 MG tablet, Take 1 tablet by [...] Appointment [facility] A Interventional Radiology [address] [place] [address] 02/10/2025 8:30 AM EDT Clinical Support [facility] Hematology/BMT and Cellular Therapy Program [address] [place] [address] 02/10/2025 9:00 AM EDT Office Visit [facility] Hematology/BMT and Cellular Therapy Program [address] [place] [address] Elaina Boss PA 800 [facility] [address] [place] [phone] 02/10/2025 10:30 AM EDT Appointment [facility] In[facility] 1 [address] [place] [address] 02/11/2025 2:00 PM EDT Appointment [facility] 1 [address] [place] [address] 02/12/2025 2:00 PM EDT Appointment [facility] 1 [address] [place] [address] 02/13/2025 2:00 PM EDT Appointment [facility] 1 [address] [place] [phone] 02/14/2025 2:00 PM EDT Appointment [facility] 1 [address] [place] [phone] 03/10/2025 8:30 AM EDT Clinical Support [facility] Hematology/BMT and Cellular Therapy Program [address] [phone] 03/10/2025 9:00 AM EDT Office Visit [facility] Hematology/BMT and Cellular Therapy Program [address] [phone] Isaura Wynn, SKIN DRIER 800 [facility] [address] [place] [phone] 03/10/2025 11:20 AM EDT Office Visit [facility] CC Head, Neck & Respiratory 800 [facility], [address] [place] [phone] Elsa Razo, SKIN DRIER [address] [place] [phone] Scheduled Orders Name Type Priority Associated Diagnoses Order Schedule CBC and differential Lab Routine Myelodysplasia (myelodysplastic syndrome) (CMS/HCC) Expected: 01/20/2025, Expires: 01/20/2026 Comprehensive metabolic panel Lab Routine Myelodysplasia (myelodysplastic syndrome) ([facility]) Expected: 01/20/2025, Expires: 01/20/2026 CBC and differential Lab Routine Myelodysplasia (myelodysplastic syndrome) ([facility]) Expected: 01/22/2025, Expires: 01/22/2026 CBC and differential Lab Routine Myelodysplasia (myelodysplastic syndrome) ([facility]) Expected: 01/24/2025, Expires: 01/24/2026 CBC and differential Lab Routine Myelodysplasia (myelodysplastic syndrome) ([facility]) Expected: 01/27/2025, Expires: 01/27/2026 Comprehensive metabolic panel Lab Routine Myelodysplasia (myelodysplastic syndrome) ([facility]) Expected: 01/27/2025, Expires: 01/27/2026 CBC and differential Lab Routine Myelodysplasia (myelodysplastic syndrome) ([facility]) Expected: 01/29/2025, Expires: 01/29/2026 CBC and differential Lab Routine Myelodysplasia (myelodysplastic syndrome) ([facility]) Expected: 01/31/2025, Expires: 01/31/2026 CBC and differential Lab Routine Myelodysplasia (myelodysplastic syndrome) ([facility]) Expected: 02/03/2025, Expires: 02/03/2026 Comprehensive metabolic panel Lab Routine Myelodysplasia (myelodysplastic syndrome) ([facility]) Expected: 02/03/2025, Expires: 02/03/2026 CBC and differential Lab Routine Myelodysplasia (myelodysplastic syndrome) ([facility]) Expected: 02/05/2025, Expires: 02/05/2026 CBC and differential Lab Routine Myelodysplasia (myelodysplastic syndrome) ([facility]) Expected: 02/07/2025, Expires: 02/07/2026 Bone marrow exam Pathology and Cytology Routine Myelodysplasia (myelodysplastic syndrome) ([facility]) Expected: 01/13/2025 (Approximate), Expires: 07/17/2026 Leukemia/Lymphoma - Immunophenotyping by Flow Cytometry Lab Routine Myelodysplasia (myelodysplastic syndrome) ([facility]) Expected: 01/13/2025 (Approximate), Expires: 07/17/2026 [...] LAB HEMATOLOGY METHOD 01/17/2025 9:41 AM EDT [facility] RBC Count 2.55(L) 4.60 - 6.10 10*6/uL LAB HEMATOLOGY METHOD 01/17/2025 9:41 AM EDT [facility] HGB 7.6(L) 13.7 - 17.5 g/dL LAB HEMATOLOGY METHOD 01/17/2025 9:41 AM EDT [facility] HCT 21.6(L) 40.0 - 51.0 % LAB HEMATOLOGY METHOD 01/17/2025 9:41 AM EDT [facility] Platelet Count 23(L) 155 - 369 10*3/uL LAB HEMATOLOGY METHOD 01/17/2025 9:41 AM EDT [facility] MCV 85 79 - 98 fL LAB HEMATOLOGY METHOD 01/17/2025 9:41 AM EDT [facility] MCH 29.8 26.0 - 32.0 pg LAB HEMATOLOGY METHOD 01/17/2025 9:41 AM EDT [facility] MCHC 35.2 30.7 - 35.5 g/dL LAB HEMATOLOGY METHOD 01/17/2025 9:41 AM EDT [facility] RDW 14.2 11.5 - 14.5 % LAB HEMATOLOGY METHOD 01/17/2025 9:41 AM EDT [facility] MPV 9.0 8.8 - 12.5 fL LAB HEMATOLOGY METHOD 01/17/2025 9:41 AM EDT [facility] nRBC 0.0 <=0.0 per 100 WBCs LAB HEMATOLOGY METHOD 01/17/2025 9:41 AM EDT [facility] Differential Type Automated LAB HEMATOLOGY METHOD 01/17/2025 9:41 AM EDT [facility] Neutrophils % 7 % LAB HEMATOLOGY METHOD 01/17/2025 9:41 AM EDT [facility] Lymphocytes % 91 % LAB HEMATOLOGY METHOD 01/17/2025 9:41 AM EDT [facility] Monocytes % 2 % LAB HEMATOLOGY METHOD 01/17/2025 9:41 AM EDT [facility] Eosinophils % 0 % LAB HEMATOLOGY METHOD 01/17/2025 9:41 AM EDT [facility] Basophils % 0 % LAB HEMATOLOGY METHOD 01/17/2025 9:41 AM EDT [facility] Immature Granulocytes % 0 % LAB HEMATOLOGY METHOD 01/17/2025 9:41 AM EDT [facility] Neutrophils Absolute 0.04(LL) 1.60 - 6.10 10*3/uL LAB HEMATOLOGY METHOD 01/17/2025 9:41 AM EDT [facility] Lymphocytes Absolute 0.49(L) 1.20 - 3.90 10*3/uL LAB HEMATOLOGY METHOD 01/17/2025 9:41 AM EDT [facility] Monocytes Absolute 0.01(L) 0.30 - 0.90 10*3/uL LAB HEMATOLOGY METHOD 01/17/2025 9:41 AM EDT [facility] Eosinophils Absolute 0.00 0.00 - 0.50 10*3/uL LAB HEMATOLOGY METHOD 01/17/2025 9:41 AM EDT [facility] Basophils Absolute 0.00 0.00 - 0.10 10*3/uL LAB HEMATOLOGY METHOD 01/17/2025 9:41 AM EDT [facility] Immature Granulocytes Absolute 0.00 0.00 - 0.06 10*3/uL LAB HEMATOLOGY METHOD 01/17/2025 9:41 AM EDT [facility] Blood Blood sample taken from central line / Unknown (Port) Long-term Catheter / Unknown 01/17/2025 8:03 AM EDT 01/17/2025 8:07 AM EDT Narrative [facility] - 01/17/2025 9:41 AM EDT Therapeutic decision making should be based on absolute values, rather than percentages. us Virgen Vargas MD LAB BLOOD ORDERABLES Final Re sult Performing Organization Address City/[facility]/ZIP Co de Phone Number [facility] [address] [place] [address] * LACTATE DEHYDROGENASE (01/15/2025 8:17 AM EDT) LDH, Plasma 192 116 - 250 U/L 01/15/2025 9:19 AM EDT [facility] Blood Blood sample taken from central line / Unknown (Port) Long-term Catheter / Unknown 01/15/2025 8:17 AM EDT 01/15/2025 8:47 AM EDT us Virgen Vargas MD LAB BLOOD ORDERABLES Final Re sult Performing Organization Address [facility] Co de Phone Number [facility] [address] [place] [address] * Magnesium (01/15/2025 8:17 AM EDT) Magnesium, Plasma 2.2 1.9 - 2.4 mg/dL 01/15/2025 9:19 AM EDT [facility] Blood Blood sample taken from central line / Unknown (Port) Long-term Catheter / Unknown 01/15/2025 8:17 AM EDT 01/15/2025 8:47 AM EDT us Virgen Vargas MD LAB BLOOD ORDERABLES Final Re sult Performing Organization Address City/[facility] Co de Phone Number [facility] [address] [place] [address] * Phosphorus (01/15/2025 8:17 AM EDT) Phosphorus, Plasma 3.1 2.5 - 4.5 mg/dL 01/15/2025 9:19 AM EDT [facility] Blood Blood sample taken from central line / Unknown (Port) Long-term Catheter / Unknown 01/15/2025 8:17 AM EDT 01/15/2025 8:47 AM EDT Virgen Vargas MD LAB BLOOD ORDERABLES Final Re sult Performing Organization Address [facility] Co de Phone Number [facility] [address] [place] [address] * (ABNORMAL) Uric acid (01/15/2025 8:17 AM EDT) Uric Acid, Plasma 3.0(L) 3.7 - 8.0 mg/dL 01/15/2025 9:19 AM EDT [facility] Blood Blood sample taken from central line / Unknown (Port) Long-term Catheter / Unknown 01/15/2025 8:17 AM EDT 01/15/2025 8:47 AM EDT Virgen Vargas MD LAB BLOOD ORDERABLES Final Re sult Performing Organization Address [facility] Co de Phone Number [facility] [address] [place] [address] * (ABNORMAL) BASIC METABOLIC PANEL (01/15/2025 8:17 AM EDT) Glucose, Plasma 96 74 - 99 mg/dL 01/15/2025 9:19 AM EDT [facility] BUN, Plasma 12 8 - 23 mg/dL 01/15/2025 9:19 AM EDT [facility] Creatinine, Plasma 0.71 0.70 - 1.20 mg/dL 01/15/2025 9:19 AM EDT [facility] BUN/Creatinine Ratio 17 01/15/2025 9:19 AM EDT [facility] Sodium, Plasma 139 136 - 145 mmol/L 01/15/2025 9:19 AM EDT [facility] Potassium, Plasma 4.1 3.6 - 4.9 mmol/L 01/15/2025 9:19 AM EDT [facility] Chloride, Plasma 108(H) 97 - 107 mmol/L 01/15/2025 9:19 AM EDT [facility] CO2, Plasma 21(L) 22 - 29 mmol/L 01/15/2025 9:19 AM EDT [facility] Anion Gap 10 6 - 16 mmol/L 01/15/2025 9:19 AM EDT [facility] Total Calcium, Plasma 8.9 8.9 - 10.2 mg/dL 01/15/2025 9:19 AM EDT [facility] eGFRcr 99.3 mL/min/1.7 3m*2 01/15/2025 9:19 AM EDT [facility] Comment:Reported eGFRcr in m L/min/1.73m2 is based the CKD-EPI 2020 equation that does not use a race coefficient. Blood Blood sample taken from central line / Unknown (Port) Long-term Catheter / Unknown 01/15/2025 8:17 AM EDT 01/15/2025 8:47 AM EDT us Virgen Vargas MD LAB BLOOD ORDERABLES Final Re sult [facility] [address] [place] [address] * (ABNORMAL) CBC and differential (01/15/2025 8:17 AM EDT) WBC Count 0.53(LL) 3.70 - 10.30 10*3/uL LAB HEMATOLOGY METHOD 01/15/2025 11:53 AM EDT [facility] RBC Count 2.82(L) 4.60 - 6.10 10*6/uL LAB HEMATOLOGY METHOD 01/15/2025 11:53 AM EDT [facility] HGB 8.2(L) 13.7 - 17.5 g/dL LAB HEMATOLOGY METHOD 01/15/2025 11:53 AM EDT [facility] HCT 24.0(L) 40.0 - 51.0 % LAB HEMATOLOGY METHOD 01/15/2025 11:53 AM EDT [facility] Platelet Count 18(LL) 155 - 369 10*3/uL LAB HEMATOLOGY METHOD 01/15/2025 11:53 AM EDT [facility] MCV 85 79 - 98 fL LAB HEMATOLOGY METHOD 01/15/2025 11:53 AM EDT [facility] MCH 29.1 26.0 - 32.0 pg LAB HEMATOLOGY METHOD 01/15/2025 11:53 AM EDT [facility] MCHC 34.2 30.7 - 35.5 g/dL LAB HEMATOLOGY METHOD 01/15/2025 11:53 AM EDT [facility] RDW 14.2 11.5 - 14.5 % LAB HEMATOLOGY METHOD 01/15/2025 11:53 AM EDT [facility] MPV 9.3 8.8 - 12.5 fL LAB HEMATOLOGY METHOD 01/15/2025 11:53 AM EDT [facility] nRBC 0.0 <=0.0 per 100 WBCs LAB HEMATOLOGY METHOD 01/15/2025 11:53 AM EDT [facility] Differential Type Automated LAB HEMATOLOGY METHOD 01/15/2025 11:53 AM EDT [facility] Neutrophils % 8 % LAB HEMATOLOGY METHOD 01/15/2025 11:53 AM EDT [facility] Lymphocytes % 88 % LAB HEMATOLOGY METHOD 01/15/2025 11:53 AM EDT [facility] Monocytes % 4 % LAB HEMATOLOGY METHOD 01/15/2025 11:53 AM EDT [facility] Eosinophils % 0 % LAB HEMATOLOGY METHOD 01/15/2025 11:53 AM EDT [facility] Basophils % 0 % LAB HEMATOLOGY METHOD 01/15/2025 11:53 AM EDT [facility] Immature Granulocytes % 0 % LAB HEMATOLOGY METHOD 01/15/2025 11:53 AM EDT [facility] Neutrophils Absolute 0.04(LL) 1.60 - 6.10 10*3/uL LAB HEMATOLOGY METHOD 01/15/2025 11:53 AM EDT [facility] Lymphocytes Absolute 0.47(L) 1.20 - 3.90 10*3/uL LAB HEMATOLOGY METHOD 01/15/2025 11:53 AM EDT [facility] Monocytes Absolute 0.02(L) 0.30 - 0.90 10*3/uL LAB HEMATOLOGY METHOD 01/15/2025 11:53 AM EDT [facility] Eosinophils Absolute 0.00 0.00 - 0.50 10*3/uL LAB HEMATOLOGY METHOD 01/15/2025 11:53 AM EDT [facility] Basophils Absolute 0.00 0.00 - 0.10 10*3/uL LAB HEMATOLOGY METHOD 01/15/2025 11:53 AM EDT [facility] Immature Granulocytes Absolute 0.00 0.00 - 0.06 10*3/uL LAB HEMATOLOGY METHOD 01/15/2025 11:53 AM EDT [facility] Blood Blood sample taken from central line / Unknown (Port) Long-term Catheter / Unknown 01/15/2025 8:17 AM EDT 01/15/2025 8:59 AM EDT Narrative [facility] - 01/15/2025 11:53 AM EDT Therapeutic decision making should be based on absolute values, rather than percentages. Virgen Vargas MD LAB BLOOD ORDERABLES Final Re sult Performing Organization Address City/[facility]/ZIP Co de Phone Number [facility] [address] [place] [address] * LACTATE DEHYDROGENASE (01/14/2025 9:06 AM EDT) LDH, Plasma 195 116 - 250 U/L 01/14/2025 9:58 AM EDT [facility] Blood Blood sample taken from central line / Unknown (Port) Long-term Catheter / Unknown 01/14/2025 9:06 AM EDT 01/14/2025 9:25 AM EDT Virgen Vargas MD LAB BLOOD ORDERABLES Final Re sult [facility] [address] [place] [address] * Magnesium (01/14/2025 9:06 AM EDT) Magnesium, Plasma 2.2 1.9 - 2.4 mg/dL 01/14/2025 9:58 AM EDT [facility] Blood Blood sample taken from central line / Unknown (Port) Long-term Catheter / Unknown 01/14/2025 9:06 AM EDT 01/14/2025 9:25 AM EDT Virgen Vargas MD LAB BLOOD ORDERABLES Final Re sult Performing Organization Address [facility]/ZIP Co de Phone Number [facility] [address] [place] [address] * Phosphorus (01/14/2025 9:06 AM EDT) Phosphorus, Plasma 3.6 2.5 - 4.5 mg/dL 01/14/2025 9:58 AM EDT [facility] Blood Blood sample taken from central line / Unknown (Port) Long-term Catheter / Unknown 01/14/2025 9:06 AM EDT 01/14/2025 9:25 AM EDT Virgen Vargas MD LAB BLOOD ORDERABLES Final Re sult Performing Organization Address [facility] Co de Phone Number [facility] [address] [place] [address] * (ABNORMAL) Uric acid (01/14/2025 9:06 AM EDT) Uric Acid, Plasma 3.0(L) 3.7 - 8.0 mg/dL 01/14/2025 9:58 AM EDT [facility] Blood Blood sample taken from central line / Unknown (Port) Long-term Catheter / Unknown 01/14/2025 9:06 AM EDT 01/14/2025 9:25 AM EDT Virgen Vargas MD LAB BLOOD ORDERABLES Final Re sult Performing Organization Address City/[facility]/ZIP Co de Phone Number [facility] [address] [place] [address] * (ABNORMAL) BASIC METABOLIC PANEL (01/14/2025 9:06 AM EDT) Glucose, Plasma 101(H) 74 - 99 mg/dL 01/14/2025 9:58 AM EDT [facility] BUN, Plasma 9 8 - 23 mg/dL 01/14/2025 9:58 AM EDT [facility] Creatinine, Plasma 0.71 0.70 - 1.20 mg/dL 01/14/2025 9:58 AM EDT [facility] BUN/Creatinine Ratio 13 01/14/2025 9:58 AM EDT [facility] Sodium, Plasma 140 136 - 145 mmol/L 01/14/2025 9:58 AM EDT [facility] Potassium, Plasma 4.3 3.6 - 4.9 mmol/L 01/14/2025 9:58 AM EDT [facility] Chloride, Plasma 110(H) 97 - 107 mmol/L 01/14/2025 9:58 AM EDT [facility] CO2, Plasma 21(L) 22 - 29 mmol/L 01/14/2025 9:58 AM EDT [facility] Anion Gap 9 6 - 16 mmol/L 01/14/2025 9:58 AM EDT [facility] Total Calcium, Plasma 8.6(L) 8.9 - 10.2 mg/dL 01/14/2025 9:58 AM EDT [facility] eGFRcr 99.3 mL/min/1.7 3m*2 01/14/2025 9:58 AM EDT [facility] Comment:Reported eGFRcr in m L/min/1.73m2 is based the CKD-EPI 2020 equation that does not use a race coefficient. Blood Blood sample taken from central line / Unknown (Port) Long-term Catheter / Unknown 01/14/2025 9:06 AM EDT 01/14/2025 9:25 AM EDT us Virgen Vargas MD LAB BLOOD ORDERABLES Final Re sult [facility] [address] [place] [address] * (ABNORMAL) Comprehensive Metabolic Panel, Plasma (01/13/2025 10:02 AM EDT) Glucose, Plasma 104(H) 74 - 99 mg/dL 01/13/2025 10:56 AM EDT [facility] BUN, Plasma 9 8 - 23 mg/dL 01/13/2025 10:56 AM EDT [facility] Creatinine, Plasma 0.72 0.70 - 1.20 mg/dL 01/13/2025 10:56 AM EDT [facility] BUN/Creatinine Ratio 13 01/13/2025 10:56 AM EDT [facility] Sodium, Plasma 140 136 - 145 mmol/L 01/13/2025 10:56 AM EDT [facility] Potassium, Plasma 4.5 3.6 - 4.9 mmol/L 01/13/2025 10:56 AM EDT [facility] Chloride, Plasma 109(H) 97 - 107 mmol/L 01/13/2025 10:56 AM EDT [facility] CO2, Plasma 21(L) 22 - 29 mmol/L 01/13/2025 10:56 AM EDT [facility] Anion Gap 10 6 - 16 mmol/L 01/13/2025 10:56 AM EDT [facility] Total Calcium, Plasma 8.9 8.9 - 10.2 mg/dL 01/13/2025 10:56 AM EDT [facility] Total Protein 6.9 6.3 - 7.9 g/dL 01/13/2025 10:56 AM EDT [facility] Albumin, Plasma 4.1 3.5 - 5.2 g/dL 01/13/2025 10:56 AM EDT [facility] AST, Plasma 84(H) 10 - 50 U/L 01/13/2025 10:56 AM EDT [facility] ALT, Plasma 95(H) 10 - 50 U/L 01/13/2025 10:56 AM EDT [facility] Alkaline Phosphatase, Plasma 83 40 - 115 U/L 01/13/2025 10:56 AM EDT [facility] Total Bilirubin, Plasma 0.7 0.2 - 1.1 mg/dL 01/13/2025 10:56 AM EDT [facility] eGFRcr 98.9 mL/min/1.7 3m*2 01/13/2025 10:56 AM EDT [facility] Comment:Reported eGFRcr in m L/min/1.73m2 is based the CKD-EPI 2020 equation that does not use a race coefficient. Blood Blood sample taken from central line / Unknown (Port) Long-term Catheter / Unknown 01/13/2025 10:02 AM EDT 01/13/2025 10:24 AM EDT us Isaura Wynn APRN LAB BLOOD ORDERABLES Final Res ult [facility] [address] [place] [address] * (ABNORMAL) CBC and Differential (01/13/2025 10:02 AM EDT) WBC Count 0.63(LL) 3.70 - 10.30 10*3/uL LAB HEMATOLOGY METHOD 01/13/2025 10:50 AM EDT [facility] RBC Count 2.94(L) 4.60 - 6.10 10*6/uL LAB HEMATOLOGY METHOD 01/13/2025 10:50 AM EDT [facility] HGB 8.9(L) 13.7 - 17.5 g/dL LAB HEMATOLOGY METHOD 01/13/2025 10:50 AM EDT [facility] HCT 24.7(L) 40.0 - 51.0 % LAB HEMATOLOGY METHOD 01/13/2025 10:50 AM EDT [facility] Platelet Count 5(LL) 155 - 369 10*3/uL LAB HEMATOLOGY METHOD 01/13/2025 10:50 AM EDT [facility] MCV 84 79 - 98 fL LAB HEMATOLOGY METHOD 01/13/2025 10:50 AM EDT [facility] MCH 30.3 26.0 - 32.0 pg LAB HEMATOLOGY METHOD 01/13/2025 10:50 AM EDT [facility] MCHC 36.0(H) 30.7 - 35.5 g/dL LAB HEMATOLOGY METHOD 01/13/2025 10:50 AM EDT [facility] RDW 14.4 11.5 - 14.5 % LAB HEMATOLOGY METHOD 01/13/2025 10:50 AM EDT [facility] MPV LAB HEMATOLOGY METHOD 01/13/2025 10:50 AM EDT [facility] Comment:Not Measured nRBC 0.0 <=0.0 per 100 WBCs LAB HEMATOLOGY METHOD 01/13/2025 10:50 AM EDT [facility] Differential Type Automated LAB HEMATOLOGY METHOD 01/13/2025 10:50 AM EDT [facility] Neutrophils % 3 % LAB HEMATOLOGY METHOD 01/13/2025 10:50 AM EDT [facility] Lymphocytes % 94 % LAB HEMATOLOGY METHOD 01/13/2025 10:50 AM EDT [facility] Monocytes % 3 % LAB HEMATOLOGY METHOD 01/13/2025 10:50 AM EDT [facility] Eosinophils % 0 % LAB HEMATOLOGY METHOD 01/13/2025 10:50 AM EDT [facility] Basophils % 0 % LAB HEMATOLOGY METHOD 01/13/2025 10:50 AM EDT [facility] Immature Granulocytes % 0 % LAB HEMATOLOGY METHOD 01/13/2025 10:50 AM EDT [facility] Neutrophils Absolute 0.02(LL) 1.60 - 6.10 10*3/uL LAB HEMATOLOGY METHOD 01/13/2025 10:50 AM EDT [facility] Lymphocytes Absolute 0.59(L) 1.20 - 3.90 10*3/uL LAB HEMATOLOGY METHOD 01/13/2025 10:50 AM EDT [facility] Monocytes Absolute 0.02(L) 0.30 - 0.90 10*3/uL LAB HEMATOLOGY METHOD 01/13/2025 10:50 AM EDT [facility] Eosinophils Absolute 0.00 0.00 - 0.50 10*3/uL LAB HEMATOLOGY METHOD 01/13/2025 10:50 AM EDT [facility] Basophils Absolute 0.00 0.00 - 0.10 10*3/uL LAB HEMATOLOGY METHOD 01/13/2025 10:50 AM EDT [facility] Immature Granulocytes Absolute 0.00 0.00 - 0.06 10*3/uL LAB HEMATOLOGY METHOD 01/13/2025 10:50 AM EDT [facility] Blood Blood sample taken from central line / Unknown (Port) Long-term Catheter / Unknown 01/13/2025 10:02 AM EDT 01/13/2025 10:15 AM EDT [facility] - 01/13/2025 10:50 AM EDT Therapeutic decision making should be based on absolute values, rather than percentages. us Isaura Wynn APRN LAB BLOOD ORDERABLES Final Res ult [facility] [address] [place] [address] documented in this encounter Visit Diagnoses Diagnosis [...] documented as of this encounter Care Teams Food Processor Relationship Specialty Start Date End Date Zhao Harris MD [address] [place] [address] PCP - General 12/03/20 documented as of this encounter
--- OUTSIDE RECORDS SUMMARY | 2025-01-13 11:30 | XMS_ITS | Encounter Summary ---
Author Organization [facility] Address [address] [place] [address] Care Team Providers Care Automotive Warranty Administrator Name Role Phone hZao Harris MD Primary Care Provider + [phone] Reason for Visit * Episode Based Medications (Routine) - Authorized Specialty Diagnoses / Procedures Referred By Justice mcgee Referred To Contact Diagnoses Myelodysplasia (myelodysplastic syndrome) (CMS/HCC) Procedures Decitabine Daily x 5 / Venetoclax Every 28 Days Virgen Vargas MD 800 [facility] [address] [address] Phone: tel: fax: Virgen Vargas MD 800 [facility] [address] [address] Phone: tel: fax: Referral ID Status Reason Start Date Expiration Date V isits Requested Visits Authorized [id number] Authorized 01/13/2025 07/15/2026 1 30 Encounter Details Date Type Department Care Team (Latest Contact Info) Description 01/13/2025 11:30 AM EDT - 01/13/2025 11:59 PM EDT Hospital Encounter PAV H Infusion 800 [place] [phone] Myelodysplasia (myelodysplastic syndrome) (CMS/HCC) (Primary Dx); Thrombocytopenia [...] drink first t manav in the morning (EYE-PRICING/SIGNAGE TEAM MEMBER) to steady your nerves or to [...] 5 MG tabletIndications :Coronary artery disease involving algaaciq heart with angina pectoris, unspecified vessel or lesion type (CMS/HCC),Hyperte nsion, unspecified type Take 1 tablet (5 mg) by mouth daily. 90 tablet 3 09/11/2024 HYDROcodone-aceta minophen ([place]) 5-325 MG tablet Take 1 tablet by [...] MG SL tabletIndications :Coronary artery disease involving algaaciq heart with angina pectoris, unspecified vessel or [...] Appointment PAV A Interventional Radiology [address] [place] [address] 02/10/2025 8:30 AM EDT Clinical Support PAV Hematology/BMT and Cellular Therapy Program [address] [address] 02/10/2025 9:00 AM EDT Office Visit PAV Hematology/BMT and Cellular Therapy Program [address] [address] Elaina Boss PA 800 [facility] [address] [place] [address] 02/10/2025 10:30 AM EDT Appointment [facility] Infusion Clinic 1 744 [place] [address] 02/11/2025 2:00 PM EDT Appointment [facility] Infusion Clinic 1 744 [place] [address] 02/12/2025 2:00 PM EDT Appointment [facility] Infusion Clinic 1 [address] [place] [address] 02/13/2025 2:00 PM EDT Appointment [facility] Infusion [facility] 1 [address] [place] [address] 02/14/2025 2:00 PM EDT Appointment [facility] Infusion Clinic 1 [address] [place] [address] 03/10/2025 8:30 AM EDT Clinical Support PAV CC Hematology/BMT and Cellular Therapy Program [address] [address] 03/10/2025 9:00 AM EDT Office Visit PAV Hematology/BMT and Cellular Therapy Program [address] [address] Isaura Wynn, COOK DESSERT 800 [facility] [address] [place] [address] 03/10/2025 11:20 AM EDT Office Visit Pav CC Head, Neck & Respiratory 800 [facility], 2nd [place] [address] Elsa Razo, COOK DESSERT 800 [place] [address] documented as of this encounter Procedures Procedure [...] Transfuse platelets (01/13/2025 2:36 PM EDT) Result [facility] Kayli Daly Janetallegraaxel CHIU BLOOD TRANSFUSION ORDERA BLES Final Result * Transfuse platelets: 1 Units (01/13/2025 2:36 PM EDT) Kayli Daly Janetallegraaxel CHIU BLOOD TRANSFUSION ORDERA BLES Final Result * (ABNORMAL) Platelet count (01/13/2025 2:07 PM EDT) Platelet Count 39(L) 155 - 369 10*3/uL LAB HEMATOLOGY METHOD 01/13/2025 2:37 PM EDT [facility] Blood Venous blood specimen / Unknown Venipuncture / Unknown 01/13/2025 2:07 PM EDT 01/13/2025 2:[address] [facility] Virgen Vargas MD LAB BLOOD ORDERABLES Final Re sult [facility] [address] [place] [address] * Exception to Standard Practice, Pathologist Interpretation [...] ORDERAB LES Final Result Performing Organization Address [facility] de Phone Number BLOOD BANK [address] * Prepare Leukocyte Reduced Platelets: 1 Units (01/13/2025 12:07 PM EDT) Product Code [id number] CH BLOO D BANK Dispense Status Transfused BLOOD BANK Blood Expiration Date [id number] BLOOD BANK Unit Number [id number] CH B LOOD BANK Product Blood Type 6200 BLOOD BANK Blood Type A+ BLOOD BANK Blood Venous blood specimen / Unknown Kayli CHIU BLOOD BANK PRODUCT ORDER VIKAS Final Result Performing Organization Address [facility] de Phone Number BLOOD BANK [address] documented in this encounter Visit Diagnoses [...] documented as of this encounter Care Teams Automotive Warranty Administrator Relationship Specialty Start Date End Date Zhao Harris MD [address] [place] [address] PCP - General 12/03/20 documented as of this encounter
--- OUTSIDE RECORDS SUMMARY | 2025-01-14 08:07 | XMS_ITS | Encounter Summary ---
Author Organization [facility] Address [address] [place] [address] Care Team Providers Care Flash Drier Operator Name Role Phone Zhao Harris MD Primary Care Provider [phone] Reason for Visit * Episode Based Medications (Routine) - Authorized Specialty Diagnoses / Procedures Referred By Justice [email or web address] Referred To Contact Diagnoses Myelodysplasia (myelodysplastic syndrome) (CMS/HCC) Procedures Decitabine Daily x 5 / Venetoclax Every 28 Days Virgen Vargas MD [address] [phone] Phone: tel: fax: Virgen Vargas MD [address] [address] Phone: tel: fax: Referral ID Status Reason Start Date Expiration Date V isits Requested Visits Authorized [id number] Authorized 01/13/2025 07/15/2026 1 30 Encounter Details Date Type Department Care Team (Latest Contact Info) Description 01/14/2025 8:07 AM EDT - 01/14/2025 11:59 PM EDT Hospital Encounter 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 90 tablet 3 09/11/2024 HYDROcodone-aceta minophen (Canute) 5-325 MG tablet Take 1 tablet by [...] tabletIndications :Coronary artery disease involving [place] heart with angina pectoris, unspecified vessel or [...] ([facility] Contact Info) Description 02/02/2025 11:00 AM EDT Appointment [facility] Interventional Radiology [address] [place] [address] 02/10/2025 8:30 AM EDT Clinical Support [facility] Hematology/BMT and Cellular Therapy Program [address] [place] [address] 02/10/2025 9:00 AM EDT Office Visit [facility] H[facility] Therapy [facility] [address] [phone] Elaina Boss, ARAM 800 [facility] [address] [place] [phone] 02/10/2025 10:30 AM EDT Appointment [facility] In[facility] [address] [place] [phone] 02/11/2025 2:00 PM EDT Appointment [facility] [address] [place] [address] 02/12/2025 2:00 PM EDT Appointment [facility] [address] [place] [address] 02/13/2025 2:00 PM EDT Appointment [facility] [address] [place] [address] 02/14/2025 2:00 PM EDT Appointment [facility] [address] [place] [address] 03/10/2025 8:30 AM EDT Clinical Support [facility]ology[facility] Cellular Therapy [facility] [address] [phone] 03/10/2025 9:00 AM EDT Office Visit [facility] Hematology[facility]BMT [facility] Cellular Therapy Program [address] [phone] Isaura Wynn, B[employer]IAL [employer]ULT MAKER 800 [facility] [address] [place] [phone] 03/10/2025 11:20 AM EDT Office Visit [facility] Head, Neck & Respiratory 800 [facility], [address] [place] [phone] Elsa Razo, B[employer]KER [address] [place] [phone] documented as of this encounter Procedures Procedure [...] LAB HEMATOLOGY METHOD 01/14/2025 10:14 AM EDT [facility] RBC Count 2.75(L) 4.60 - 6.10 10*6/uL LAB HEMATOLOGY METHOD 01/14/2025 10:14 AM EDT [facility] HGB 8.2(L) 13.7 - 17.5 g/dL LAB HEMATOLOGY METHOD 01/14/2025 10:14 AM EDT [facility] HCT 23.2(L) 40.0 - 51.0 % LAB HEMATOLOGY METHOD 01/14/2025 10:14 AM EDT [facility] Platelet Count 21(L) 155 - 369 10*3/uL LAB HEMATOLOGY METHOD 01/14/2025 10:14 AM EDT [facility] MCV 84 79 - 98 fL LAB HEMATOLOGY METHOD 01/14/2025 10:14 AM EDT [facility] MCH 29.8 26.0 - 32.0 pg LAB HEMATOLOGY METHOD 01/14/2025 10:14 AM EDT [facility] MCHC 35.3 30.7 - 35.5 g/dL LAB HEMATOLOGY METHOD [facility] RDW 14.3 11.5 - 14.5 % LAB HEMATOLOGY METHOD 01/14/2025 10:14 AM EDT [facility] MPV 8.1(L) 8.8 - 12.5 fL LAB HEMATOLOGY METHOD 01/14/2025 10:14 AM EDT [facility] nRBC 0.0 <=0.0 per 100 WBCs LAB HEMATOLOGY METHOD 01/14/2025 10:14 AM EDT [facility] Differential Type Automated LAB HEMATOLOGY METHOD 01/14/2025 10:14 AM [facility] Neutrophils % 4 % LAB HEMATOLOGY METHOD 01/14/2025 10:14 AM EDT [facility] Lymphocytes % 92 % LAB HEMATOLOGY METHOD 01/14/2025 10:14 AM EDT [facility] Monocytes % 4 % LAB HEMATOLOGY METHOD 01/14/2025 10:14 AM [facility] Eosinophils % 0 % LAB HEMATOLOGY METHOD 01/14/2025 10:14 AM [facility] Basophils % 0 % LAB HEMATOLOGY METHOD 01/14/2025 10:14 AM [facility] Immature Granulocytes % 0 % LAB HEMATOLOGY METHOD 01/14/2025 10:14 AM [facility] Neutrophils Absolute 0.02(LL) 1.60 - 6.10 10*3/uL LAB HEMATOLOGY METHOD 01/14/2025 10:14 AM [facility] Lymphocytes Absolute 0.50(L) 1.20 - 3.90 10*3/uL LAB HEMATOLOGY METHOD 01/14/2025 10:14 AM [facility] Monocytes Absolute 0.02(L) 0.30 - 0.90 10*3/uL LAB HEMATOLOGY METHOD 01/14/2025 10:14 AM [facility] Eosinophils Absolute 0.00 0.00 - 0.50 10*3/uL LAB HEMATOLOGY METHOD 01/14/2025 10:14 AM EDT [facility] Basophils Absolute 0.00 0.00 - 0.10 10*3/uL LAB HEMATOLOGY METHOD 01/14/2025 10:14 AM [facility] Immature Granulocytes Absolute 0.00 0.00 - 0.06 10*3/uL LAB HEMATOLOGY METHOD 01/14/2025 10:14 AM [facility] Blood Blood sample taken from central line / Unknown (Port) Long-term Catheter / Unknown 01/14/2025 9:06 AM EDT 01/14/2025 9:14 AM EDT Narrative [facility] - 01/14/2025 10:14 AM EDT Therapeutic decision making should be based on absolute values, rather than percentages. us Virgen Vargas MD LAB BLOOD ORDERABLES Final Re sult [facility] [address] [place] [phone] * (ABNORMAL) BASIC METABOLIC PANEL (01/14/2025 9:06 AM EDT) Glucose, Plasma 101(H) 74 - 99 mg/dL 01/14/2025 9:58 AM EDT [facility] BUN, Plasma 9 8 - 23 mg/dL 01/14/2025 9:58 AM EDT [facility] Creatinine, Plasma 0.71 0.70 - 1.20 mg/dL 01/14/2025 9:58 AM EDT [facility] BUN/Creatinine Ratio 13 01/14/2025 9:58 AM EDT [facility] Sodium, Plasma 140 136 - 145 mmol/L 01/14/2025 9:58 AM EDT [facility] Potassium, Plasma 4.3 3.6 - 4.9 mmol/L 01/14/2025 9:58 AM EDT [facility] Chloride, Plasma 110(H) 97 - 107 mmol/L 01/14/2025 9:58 AM EDT [facility] CO2, Plasma 21(L) 22 - 29 mmol/L 01/14/2025 9:58 AM EDT [facility] Anion Gap 9 6 - 16 mmol/L 01/14/2025 9:58 AM EDT [facility] Total Calcium, Plasma 8.6(L) 8.9 - 10.2 mg/dL 01/14/2025 9:58 AM EDT [facility] eGFRcr 99.3 mL/min/1.7 3m*2 01/14/2025 9:58 AM EDT [facility] Comment:Reported eGFRcr in m L/min/1.73m2 is based the CKD-EPI 2020 equation that does not use a race coefficient. Blood Blood sample taken from central line / Unknown (Port) Long-term Catheter / Unknown 01/14/2025 9:06 AM EDT 01/14/2025 9:25 AM EDT Virgen Vargas MD LAB BLOOD ORDERABLES Final Re sult Performing Organization Address City/[facility]/ZIP Co de Phone Number [facility] [address] [place] [address] * (ABNORMAL) Uric acid (01/14/2025 9:06 AM EDT) Uric Acid, Plasma 3.0(L) 3.7 - 8.0 mg/dL 01/14/2025 9:58 AM EDT [facility] Blood Blood sample taken from central line / Unknown (Port) Long-term Catheter / Unknown 01/14/2025 9:06 AM EDT 01/14/2025 9:25 AM EDT Virgen Vargas MD LAB BLOOD ORDERABLES Final Re sult Performing Organization Address City/[facility]/[place] [address] * Phosphorus (01/14/2025 9:06 AM EDT) Phosphorus, Plasma 3.6 2.5 - 4.5 mg/dL 01/14/2025 9:58 AM EDT [facility] Blood Blood sample taken from central line / Unknown (Port) Long-term Catheter / Unknown 01/14/2025 9:06 AM EDT 01/14/2025 9:25 AM EDT Virgen Vargas MD LAB BLOOD ORDERABLES Final Re sult [facility] [address] [place] [address] * Magnesium (01/14/2025 9:06 AM EDT) Magnesium, Plasma 2.2 1.9 - 2.4 mg/dL 01/14/2025 9:58 AM EDT [facility] Blood Blood sample taken from central line / Unknown (Port) Long-term Catheter / Unknown 01/14/2025 9:06 AM EDT 01/14/2025 9:25 AM EDT Virgen Vargas MD LAB BLOOD ORDERABLES Final Re sult Performing Organization Address [facility]/ZIP Co de Phone Number [facility] [address] [place] [address] * LACTATE DEHYDROGENASE (01/14/2025 9:06 AM EDT) LDH, Plasma 195 116 - 250 U/L 01/14/2025 9:58 AM EDT [facility] Blood Blood sample taken from central line / Unknown (Port) Long-term Catheter / Unknown 01/14/2025 9:06 AM EDT 01/14/2025 9:25 AM EDT Virgen Vargas MD LAB BLOOD ORDERABLES Final Re sult Performing Organization Address [facility]/[place] [address] documented in this encounter Visit Diagnoses Diagnosis [...] documented as of this encounter Care Teams Flash Drier Operator Relationship Specialty Start Date End Date Zhao Harris MD [address] [place] [address] PCP - General 12/03/20 documented as of this encounter
--- OUTSIDE RECORDS SUMMARY | 2025-01-15 08:11 | XMS_ITS | Encounter Summary ---
Author Organization [facility] Address [address] [place] [address] Care Team Providers Care Early Childhood Name Role Phone Zhao Harris MD Primary Care Provider + [phone] Reason for Visit * Episode Based Medications (Routine) - Authorized Specialty Diagnoses / Procedures Referred By Justice mcgee Referred To Contact Diagnoses Myelodysplasia (myelodysplastic syndrome) (CMS/HCC) Procedures Decitabine Daily x 5 / Venetoclax Every 28 Days Virgen Vargas MD 800 [facility] [address] [address] Phone: tel: fax: Virgen Vargas MD [address] [address] Phone: tel: fax: Referral ID Status Reason Start Date Expiration Date V isits Requested Visits Authorized [id number] Authorized 01/13/2025 07/15/2026 1 30 Encounter Details Date Type Department Care Team (Latest Contact Info) Description 01/15/2025 8:11 AM EDT - 01/15/2025 9:57 AM EDT Hospital Encounter [facility] H Infusion [address] [place] [phone] Myelodysplasia (myelodysplastic syndrome) (CMS/HCC) (Primary Dx); Thrombocytopenia [...] first t manav in the morning ([employer]) to steady your nerves or to [...] Sign Reading Time Taken Comments Blood Pressure 129/77 01/15/2025 10:45 AM EDT Pulse 57 01/15/2025 10:45 AM EDT Temperature 36.9 C (98.5 F) 01/15/2025 10:45 AM EDT Respiratory Rate 18 01/15/2025 10:45 AM EDT Oxygen Saturation 99% 01/15/2025 8:13 AM EDT Inhaled Oxygen Concentration - - Weight 82 kg (180 lb 12.4 oz) 01/15/2025 8:13 AM EDT Height 170.2 cm (5' 7 ) 01/15/2025 8:13 AM EDT Body Mass Index 28.31 01/15/2025 8:13 AM EDT documented in this encounter Medications [...] 5 MG tabletIndications :Coronary artery disease involving stillaguamish heart with angina pectoris, unspecified vessel or lesion type (CMS/HCC),Hyperte nsion, unspecified type Take 1 tablet (5 mg) by mouth daily. 90 tablet 3 09/11/2024 HYDROcodone-aceta minophen ([place]) 5-325 MG tablet Take 1 tablet by [...] MG SL tabletIndications :Coronary artery disease involving stillaguamish heart with angina pectoris, unspecified vessel or [...] * Addendum Note - Irena Velasquez - 01/15/2025 8:30 AM EDTEncounter addended by: Irena Velasquez on: 01/16/2025 8:44 AM Actions taken: Order list changed, Diagnosis association updated documented in this encounter Plan of Treatment Upcoming Encounters Date Type Department Care Team (Late st Contact Info) Description 02/02/2025 11:00 AM EDT Appointment [facility] A Interventional Radiology [address] [place] [address] 02/10/2025 8:30 AM EDT Clinical Support [facility] Hematology/BMT and Cellular Therapy Program [address] [phone] 02/10/2025 9:00 AM EDT Office Visit [facility] Hematology/BMT and Cellular Therapy Program [address] [phone] Elaina Boss, [place] 800 [facility] [address] [place] [phone] 02/10/2025 10:30 AM EDT Appointment [facility] 1 [address] [place] [address] 02/11/2025 2:00 PM EDT Appointment [facility] 1 [address] [place] [address] 02/12/2025 2:00 PM EDT Appointment [facility] 1 [address] [place] [address] 02/13/2025 2:00 PM EDT Appointment [facility] 1 [address] [place] [address] 02/14/2025 2:00 PM EDT Appointment [facility] 1 [address] [place] [address] 03/10/2025 8:30 AM EDT Clinical Support [facility] Hematology/BMT and Cellular Therapy Program [address] [phone] 03/10/2025 9:00 AM EDT Office Visit [facility] Hematology/BMT and Cellular Therapy Program [address] [phone] Isaura Wynn, [employer] 800 [facility] [address] [phone] 03/10/2025 11:20 AM EDT Office Visit [facility] Ne[facility] Respiratory 800 [facility] [address] [place] [address] Damari Razosey Marquis, [employer]OMAT[employer]ER [address] [place] [address] documented as of this encounter Procedures Procedure Name Priority Date/Time Associated Diagnosis Comments TRANSFUSE PLATELETS Routine 01/15/2025 1 0:15 AM EDT Myelodysplasia (myelodysplastic syndrome) (CMS/HCC) Thrombocytopenia (CMS/HCC) EXCEPTION TO STANDARD PRACTICE, PATHOLOGIST INTERPRETATION Routine 01/15/2025 10:08 AM EDT Myelodysplasia (myelodysplastic syndrome) (CMS/HCC) PREPARE PLATELETS Routine 01/15/2025 9:5 5 AM EDT Myelodysplasia (myelodysplastic syndrome) (CMS/HCC) Thrombocytopenia (CMS/HCC) CBC WITH AUTO DIFFERENTIAL Routine 01/15/2025 8:17 AM EDT Myelodysplasia (myelodysplastic syndrome) (CMS/HCC) URIC ACID, PLASMA Routine 01/15/2025 8:1 7 AM EDT Myelodysplasia (myelodysplastic syndrome) (CMS/HCC) PHOSPHORUS, PLASMA Routine 01/15/2025 8: 17 AM EDT Myelodysplasia (myelodysplastic syndrome) (CMS/HCC) MAGNESIUM, PLASMA Routine 01/15/2025 8:1 7 AM EDT Myelodysplasia (myelodysplastic syndrome) (CMS/HCC) LACTATE DEHYDROGENASE, PLASMA Routine 01/15/2025 8:17 AM EDT Myelodysplasia (myelodysplastic syndrome) (CMS/HCC) BASIC METABOLIC PANEL, PLASMA Routine 01/15/2025 8:17 AM EDT Myelodysplasia (myelodysplastic syndrome) (CMS/HCC) documented in this encounter Results * Transfuse platelets (01/15/2025 10:55 AM EDT) us Kayli CHIU BLOOD TRANSFUSION ORDERA BLES Final Result * Transfuse platelets: 1 Units (01/15/2025 10:55 AM EDT) us Kayli CHIU BLOOD TRANSFUSION ORDERA BLES Final Result * Exception to Standard Practice, Pathologist Interpretation (01/15/2025 10:08 AM EDT) Clinical Diagnosis, Exception to Standard Practice Thrombocytopenia 01/16/2025 11:01 AM EDT BLOOD BANK Interpretation , Exception to Standard Practice Your patient, who is RhD-negative, required transfusion of one unit apheresis platelet on 01/15/2025. Considering the available inventory and the necessity [...] isoimmunization may be considered, if clinically indicated. 01/16/2025 11:01 AM EDT BLOOD BANK Pathologist Signature, Exception to Standard Practice Reviewed by: Sanjuanita Swann MD 01/16/2025 11:01 AM EDT BLOOD BANK LAB CP ASR DISCLAIMER No 01/16/2025 11:01 AM EDT BLOOD BANK Blood Bank Lab Only 01/15/2025 10:08 AM EDT 01/16/2025 8:44 AM EDT us Juwan Horton MD LAB BLOOD BANK TEST ORDERAB LES Final Result BLOOD BANK [address] [place] [address], * Prepare Leukocyte Reduced Platelets: 1 Units (01/15/2025 9:55 AM EDT) Product Code [id number] CH BLOO D BANK Dispense Status Transfused BLOOD BANK Blood Expiration Date [id number] BLOOD BANK Unit Number [id number] CH B LOOD BANK Product Blood Type 6200 BLOOD BANK Blood Type A+ BLOOD BANK Blood Venous blood specimen / Unknown us Kayli CHIU BLOOD BANK PRODUCT ORDER VIKAS Final Result BLOOD BANK [address] [place] [address], * (ABNORMAL) CBC and differential (01/15/2025 8:17 AM EDT) WBC Count 0.53(LL) 3.70 - 10.30 10*3/uL LAB HEMATOLOGY METHOD 01/15/2025 11:53 AM EDT [facility] RBC Count 2.82(L) 4.60 - 6.10 10*6/uL LAB HEMATOLOGY METHOD 01/15/2025 11:53 AM EDT [facility] HGB 8.2(L) 13.7 - 17.5 g/dL LAB HEMATOLOGY METHOD 01/15/2025 11:53 AM EDT [facility] HCT 24.0(L) 40.0 - 51.0 % LAB HEMATOLOGY METHOD 01/15/2025 11:53 AM EDT [facility] Platelet Count 18(LL) 155 - 369 10*3/uL LAB HEMATOLOGY METHOD 01/15/2025 11:53 AM EDT [facility] MCV 85 79 - 98 fL LAB HEMATOLOGY METHOD 01/15/2025 11:53 AM EDT [facility] MCH 29.1 26.0 - 32.0 pg LAB HEMATOLOGY METHOD 01/15/2025 11:53 AM EDT [facility] MCHC 34.2 30.7 - 35.5 g/dL LAB HEMATOLOGY METHOD 01/15/2025 11:53 AM EDT [facility] RDW 14.2 11.5 - 14.5 % LAB HEMATOLOGY METHOD 01/15/2025 11:53 AM EDT [facility] MPV 9.3 8.8 - 12.5 fL LAB HEMATOLOGY METHOD 01/15/2025 11:53 AM EDT [facility] nRBC 0.0 <=0.0 per 100 WBCs LAB HEMATOLOGY METHOD 01/15/2025 11:53 AM EDT [facility] Differential Type Automated LAB HEMATOLOGY METHOD 01/15/2025 11:53 AM EDT [facility] Neutrophils % 8 % LAB HEMATOLOGY METHOD 01/15/2025 11:53 AM EDT [facility] Lymphocytes % 88 % LAB HEMATOLOGY METHOD 01/15/2025 11:53 AM EDT [facility] Monocytes % 4 % LAB HEMATOLOGY METHOD 01/15/2025 11:53 AM EDT [facility] Eosinophils % 0 % LAB HEMATOLOGY METHOD 01/15/2025 11:53 AM EDT [facility] Basophils % 0 % LAB HEMATOLOGY METHOD 01/15/2025 11:53 AM EDT [facility] Immature Granulocytes % 0 % LAB HEMATOLOGY METHOD 01/15/2025 11:53 AM EDT [facility] Neutrophils Absolute 0.04(LL) 1.60 - 6.10 10*3/uL LAB HEMATOLOGY METHOD 01/15/2025 11:53 AM EDT [facility] Lymphocytes Absolute 0.47(L) 1.20 - 3.90 10*3/uL LAB HEMATOLOGY METHOD 01/15/2025 11:53 AM EDT [facility] Monocytes Absolute 0.02(L) 0.30 - 0.90 10*3/uL LAB HEMATOLOGY METHOD 01/15/2025 11:53 AM EDT [facility] Eosinophils Absolute 0.00 0.00 - 0.50 10*3/uL LAB HEMATOLOGY METHOD 01/15/2025 11:53 AM EDT [facility] Basophils Absolute 0.00 0.00 - 0.10 10*3/uL LAB HEMATOLOGY METHOD 01/15/2025 11:53 AM EDT [facility] Immature Granulocytes Absolute 0.00 0.00 - 0.06 10*3/uL LAB HEMATOLOGY METHOD 01/15/2025 11:53 AM EDT [facility] Blood Blood sample taken from central line / Unknown (Port) Long-term Catheter / Unknown 01/15/2025 8:17 AM EDT 01/15/2025 8:59 AM EDT [facility] - 01/15/2025 11:53 AM EDT Therapeutic decision making should be based on absolute values, rather than percentages. us Virgen Vargas MD LAB BLOOD ORDERABLES Final Re sult [facility] [address] [place] [address] * (ABNORMAL) BASIC METABOLIC PANEL (01/15/2025 8:17 AM EDT) Glucose, Plasma 96 74 - 99 mg/dL 01/15/2025 9:19 AM EDT [facility] BUN, Plasma 12 8 - 23 mg/dL 01/15/2025 9:19 AM EDT [facility] Creatinine, Plasma 0.71 0.70 - 1.20 mg/dL 01/15/2025 9:19 AM EDT [facility] BUN/Creatinine Ratio 17 01/15/2025 9:19 AM EDT [facility] Sodium, Plasma 139 136 - 145 mmol/L 01/15/2025 9:19 AM EDT [facility] Potassium, Plasma 4.1 3.6 - 4.9 mmol/L 01/15/2025 9:19 AM EDT [facility] Chloride, Plasma 108(H) 97 - 107 mmol/L 01/15/2025 9:19 AM EDT [facility] CO2, Plasma 21(L) 22 - 29 mmol/L 01/15/2025 9:19 AM EDT [facility] Anion Gap 10 6 - 16 mmol/L 01/15/2025 9:19 AM EDT [facility] Total Calcium, Plasma 8.9 8.9 - 10.2 mg/dL 01/15/2025 9:19 AM EDT [facility] eGFRcr 99.3 mL/min/1.7 3m*2 01/15/2025 9:19 AM EDT [facility] Comment:Reported eGFRcr in m L/min/1.73m2 is based the CKD-EPI 2020 equation that does not use a race coefficient. Blood Blood sample taken from central line / Unknown (Port) Long-term Catheter / Unknown 01/15/2025 8:17 AM EDT 01/15/2025 8:47 AM EDT us Virgen Vargas MD LAB BLOOD ORDERABLES Final Re sult [facility] [address] [place] [address] * (ABNORMAL) Uric acid (01/15/2025 8:17 AM EDT) Uric Acid, Plasma 3.0(L) 3.7 - 8.0 mg/dL 01/15/2025 9:19 AM EDT [facility] Blood Blood sample taken from central line / Unknown (Port) Long-term Catheter / Unknown 01/15/2025 8:17 AM EDT 01/15/2025 8:47 AM EDT Virgen Vargas MD LAB BLOOD ORDERABLES [place] [address] * Phosphorus (01/15/2025 8:17 AM EDT) Phosphorus, Plasma 3.1 2.5 - 4.5 mg/dL 01/15/2025 9:19 AM EDT [facility] Blood Blood sample taken from central line / Unknown (Port) Long-term Catheter / Unknown 01/15/2025 8:17 AM EDT 01/15/2025 8:47 AM EDT Virgen Vargas MD LAB BLOOD ORDERABLES [place] [address] * Magnesium (01/15/2025 8:17 AM EDT) Magnesium, Plasma 2.2 1.9 - 2.4 mg/dL 01/15/2025 9:19 AM EDT [facility] Blood Blood sample taken from central line / Unknown (Port) Long-term Catheter / Unknown 01/15/2025 8:17 AM EDT 01/15/2025 8:47 AM EDT Virgen Vargas MD LAB BLOOD ORDERABLES Final Re sult [facility] [address] [place] [address] * LACTATE DEHYDROGENASE (01/15/2025 8:17 AM EDT) LDH, Plasma 192 116 - 250 U/L 01/15/2025 9:19 AM EDT [facility] Blood Blood sample taken from central line / Unknown (Port) Long-term Catheter / Unknown 01/15/2025 8:17 AM EDT 01/15/2025 8:47 AM EDT us Virgen Vargas MD LAB BLOOD ORDERABLES Final [facility] [place] Performing Organization Address [facility]/ZIP Co de Phone Number [facility] [address] [place] [address] documented in this encounter Visit Diagnoses Diagnosis [...] Container. Chemotherapy: refer to [id number]., On Christina 01/15/25 at 0900, For 1 dose, NS 100 mLIndications:Myelodysplasia (myelodysplastic syndrome) (CMS/HCC) New Bag 01/15/2025 8:49 AM EDT 39 mg 137.8 mL/hr prochlorperazine (Compazine) tablet 10 mg 10 mg, Oral, Once, 1 dose, On Christina 01/15/25 at 0830, RoutineIndications:Myelodyspla haim (myelodysplastic syndrome) (CMS/HCC) Given 01/15/2025 8:17 AM EDT 10 mg documented in this encounter Additional Health Concerns Assessment Noted Time PHQ-9 Depression Total Score: 0 09/11/19 9:15 AM EST A fall risk assessment has been complete d for the patient 01/15/2025 8:13 AM EDT A Body Mass Index follow-up plan has been documented for the patient 01/14/2025 10:46 AM EDT documented as of this encounter Care Teams Early Childhood Relationship Specialty Start Date End Date Zhao Harris MD [address] [place] [address] PCP - General 12/03/20 documented as of this encounter
--- OUTSIDE RECORDS SUMMARY | 2025-01-15 09:58 | XMS_ITS | Encounter Summary ---
Author Organization Healthcare Address [address] [place] [address] Care Team Providers Care Retail Operations Manager Name Role Phone Zhao Harris MD Primary Care Provider [phone] Encounter Details Date Type Department Care Team (Latest Contact Info) Description 01/15/2025 9:58 AM EDT - 01/15/2025 11:59 PM EDT Hospital Encounter [facility] Infusion [address] [place] [address] Discharge Disposition: Home or Self Care Social [...] drink first t manav in the morning (EYE-RETURN CLERK) to steady your nerves or to [...] tablet 01/13/2025 documented as of this encounter Plan of Treatment Upcoming Encounters Date Type Department Care Team (Late st Contact Info) Description 02/02/2025 11:00 AM EDT Appointment [facility] Interventional Radiology [address] [place] [address] 02/10/2025 8:30 AM EDT Clinical Support [facility] Hematology/BMT and Cellular Therapy Program [address] [phone] 02/10/2025 9:00 AM EDT Office Visit [facility] Hematology/BMT and Cellular Therapy Program [address] [phone] Elaina Boss, PA 800 [facility] [address] [place] [phone] 02/10/2025 10:30 AM EDT Appointment [facility] 1 [address] [place] [address] 02/11/2025 2:00 PM EDT Appointment [facility] 1 [address] [place] [address] 02/12/2025 2:00 PM EDT Appointment [facility] 1 [address] [place] [address] 02/13/2025 2:00 PM EDT Appointment [facility] 1 [address] [place] [address] 02/14/2025 2:00 PM EDT Appointment [facility] 1 [address] [place] [address] 03/10/2025 8:30 AM EDT Clinical Support [facility] Hematology/BMT and Cellular Therapy Program [address] [phone] 03/10/2025 9:00 AM EDT Office Visit [facility] Hematology/BMT and Cellular Therapy Program [address] [phone] Isaura Wynn, ESTRELLA 800 [facility] [address] [phone] 03/10/2025 11:20 AM EDT Office Visit [facility] Respiratory 800 [facility], [address]nd [place] [phone] Elsa Razo, PROFESSIONAL NURSING ASSISTANT [address] [place] [phone] documented as of this encounter Visit Diagnoses [...] as of this encounter Care Teams Retail Operations Manager Relationship Specialty Start Date End Date Zhao Harris MD [address] [place], [place] [phone] PCP - General 12/03/20 documented as of this encounter
--- OUTSIDE RECORDS SUMMARY | 2025-01-16 07:55 | XMS_ITS | Encounter Summary ---
Author Organization [facility] Address [address] [place] [address] Care Team Providers Care Side Stitching Machine Operator Name Role Phone Zhao Harris MD Primary Care Provider + [phone] Reason for Visit * Episode Based Medications (Routine) - Authorized Specialty Diagnoses / Procedures Referred By Justice mcgee Referred To Contact Diagnoses Myelodysplasia (myelodysplastic syndrome) (CMS/HCC) Procedures Decitabine Daily x 5 / Venetoclax Every 28 Days Virgen Vargas MD 800 [facility] [address] [address] Phone: tel: fax: Virgen Vargas MD [address] [address] Phone: tel: fax: Referral ID Status Reason Start Date Expiration Date V isits Requested Visits Authorized [id number] Authorized 01/13/2025 07/15/2026 1 30 Encounter Details Date Type Department Care Team (Latest Contact Info) Description 01/16/2025 7:55 AM EDT - 01/16/2025 11:59 PM EDT Hospital Encounter [facility] H Infusion 800 [place] [phone] Myelodysplasia (myelodysplastic syndrome) (CMS/HCC) (Primary Dx) Discharge [...] drink first t manav in the morning (EYE-BASKET OPERATOR) to steady your nerves or to [...] 5 MG tabletIndications :Coronary artery disease involving [place] heart with angina pectoris, unspecified vessel or lesion type (CMS/HCC),Hyperte nsion, unspecified type Take 1 tablet (5 mg) by mouth daily. 90 tablet 3 09/11/2024 HYDROcodone-aceta minophen ([place]) 5-325 MG tablet Take 1 tablet by [...] MG SL tabletIndications :Coronary artery disease involving [place] heart with angina pectoris, unspecified vessel or [...] A Interventional Radiology [address] [place] [address] 02/10/2025 8:30 AM EDT Clinical Support [facility] CC Hematology/BMT and Cellular Therapy Program [address] [place] [address] 02/10/2025 9:00 AM EDT Office Visit [facility] Hematology/BMT and Cellular Therapy Program [address] [phone] Elaina Boss, PA 800 [facility] [address] [place] [phone] 02/10/2025 10:30 AM EDT Appointment [facility] 1 7[address] [place] [address] 02/11/2025 2:00 PM EDT Appointment [facility] 1 [address] [place] [phone] 02/12/2025 2:00 PM EDT Appointment [facility] 1 7[address] [place] [phone] 02/13/2025 2:00 PM EDT Appointment [facility] 1 [address] [place] [address] 02/14/2025 2:00 PM EDT Appointment [facility] 1 [address] [place] [address] 03/10/2025 8:30 AM EDT Clinical Support [facility] Hematology/BMT and Cellular Therapy Program [address] [address] 03/10/2025 9:00 AM EDT Office Visit [facility] Hematology/BMT and Cellular Therapy Program [address] [phone] Isaura Wynn, VP 800 [facility] [address] [place] [phone] 03/10/2025 11:20 AM EDT Office Visit Pav Head, Neck & Respiratory 800 [facility], 2nd [place] [phone] Elsa Razo, VP 800 [place] [phone] documented as of this encounter Procedures Procedure Name Priority Date/Time Associated Diagnosis Comments TYPE AND SCREEN Routine 01/16/2025 9:54 AM EDT PLATELET COUNT, BLOOD STAT 01/16/2025 8:12 AM EDT CBC W/O DIFFERENTIAL STAT Add-on 01/16/2025 8:12 AM EDT documented in this encounter Results * Type and Screen (01/16/2025 9:54 AM EDT) Pathologist [facility] ABO/Rh O Negative 01/16/2025 9:51 AM EDT BLOOD BANK Antibody Screen Negative 01/16/2025 9:51 AM EDT BLOOD BANK Specimen Expiration 01/19/2025 23:59 01/16/2025 9:51 AM EDT BLOOD BANK Blood Venous blood specimen / Unknown Venipuncture / Unknown 01/16/2025 9:54 AM EDT 01/16/2025 10:02 AM EDT us Virgen Vargas MD LAB BLOOD BANK TEST ORDERABLE S Final Result BLOOD BANK 800 [place] [address], * (ABNORMAL) CBC W/O Differential (01/16/2025 8:12 AM EDT) WBC Count 0.49(LL) 3.70 - 10.30 10*3/uL LAB HEMATOLOGY METHOD 01/16/2025 11:30 AM EDT [facility] RBC Count 2.65(L) 4.60 - 6.10 10*6/uL LAB HEMATOLOGY METHOD 01/16/2025 11:30 AM EDT [facility] HGB 8.0(L) 13.7 - 17.5 g/dL LAB HEMATOLOGY METHOD 01/16/2025 11:30 AM EDT [facility] HCT 23.0(L) 40.0 - 51.0 % LAB HEMATOLOGY METHOD 01/16/2025 11:30 AM EDT [facility] Platelet Count 39(L) 155 - 369 10*3/uL LAB HEMATOLOGY METHOD 01/16/2025 11:30 AM EDT [facility] MCV 87 79 - 98 fL LAB HEMATOLOGY METHOD 01/16/2025 11:30 AM EDT [facility] MCH 30.2 26.0 - 32.0 pg LAB HEMATOLOGY METHOD 01/16/2025 11:30 AM EDT [facility] MCHC 34.8 30.7 - 35.5 g/dL LAB HEMATOLOGY METHOD 01/16/2025 11:30 AM EDT [facility] RDW 14.5 11.5 - 14.5 % LAB HEMATOLOGY METHOD 01/16/2025 11:30 AM EDT [facility] MPV 10.2 8.8 - 12.5 fL LAB HEMATOLOGY METHOD 01/16/2025 11:30 AM EDT [facility] nRBC 0.0 <=0.0 per 100 WBCs LAB HEMATOLOGY METHOD 01/16/2025 11:30 AM EDT [facility] Blood Blood sample taken from central line / Unknown Venipuncture / Unknown 01/16/2025 8:12 AM EDT 01/16/2025 8:27 AM EDT Virgen Vargas MD LAB BLOOD ORDERABLES Final Re sult [facility] 800 [place] [address] * (ABNORMAL) Platelet count (01/16/2025 8:12 AM EDT) Platelet Count 39(L) 155 - 369 10*3/uL LAB HEMATOLOGY METHOD 01/16/2025 8:38 AM EDT [facility] Blood Blood sample taken from central line / Unknown Venipuncture / Unknown 01/16/2025 8:12 AM EDT 01/16/2025 8:27 AM EDT Virgen Vargas MD LAB BLOOD ORDERABLES Final Re sult [facility] 800 [place] [address] documented in this encounter Visit Diagnoses Diagnosis [...] documented as of this encounter Care Teams Side Stitching Machine Operator Relationship Specialty Start Date End Date Zhao Harris MD [address] [place] [address] [facility] [address] [place] [id number] PCP - General 12/03/20 documented as of this encounter
--- OUTSIDE RECORDS SUMMARY | 2025-01-17 07:45 | XMS_ITS | Encounter Summary ---
Author Organization [facility] Address [address] [place] [address] Care Team Providers Care Child Care Giver Name Role Phone Zhao Harris MD Primary Care Provider + [phone] Reason for Visit * Episode Based Medications (Routine) - Authorized Specialty Diagnoses / Procedures Referred By Justice mcgee Referred To Contact Diagnoses Myelodysplasia (myelodysplastic syndrome) (CMS/HCC) Procedures Decitabine Daily x 5 / Venetoclax Every 28 Days Virgen Vargas MD 800 [facility] [address] [address] Phone: tel: fax: Virgen Vargas MD [address] [address] Phone: tel: fax: Referral ID Status Reason Start Date Expiration Date V isits Requested Visits Authorized [id number] Authorized 01/13/2025 07/15/2026 1 30 Encounter Details Date Type Department Care Team (Latest Contact Info) Description 01/17/2025 7:45 AM EDT - 01/17/2025 11:59 PM EDT Hospital Encounter PAV H Infusion 800 [place] [phone] Myelodysplasia (myelodysplastic syndrome) (CMS/HCC) (Primary Dx); Thrombocytopenia [...] first t manav in the morning (EYE-ACCOUNTANT BUDGET) to steady your nerves or to get [...] 5 MG tabletIndications :Coronary artery disease involving [place] heart with angina pectoris, unspecified vessel or lesion type (CMS/HCC),Hyperte nsion, unspecified type Take 1 tablet (5 mg) by mouth daily. 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 pectoris, unspecified vessel or [...] Radiology [address] [place] [address] 02/10/2025 8:30 AM EDT Clinical Support PAV Hematology/BMT and Cellular Therapy Program [address] [place] [address] 02/10/2025 9:00 AM EDT Office Visit PAV Hematology/BMT and Cellular Therapy Program [address] [address] Elaina Boss PA 800 [facility] [address] [place] [address] 02/10/2025 10:30 AM EDT Appointment [facility] Infusion Clinic 1 [address] [place] [address] 02/11/2025 2:00 PM EDT Appointment [facility] Infusion [facility] 1 [address] [place] [address] 02/12/2025 2:00 PM EDT Appointment [facility] Infusion [facility] 1 [address] [place] [address] 02/13/2025 2:00 PM EDT Appointment [facility] Infusion [facility] 1 [address] [place] [address] 02/14/2025 2:00 PM EDT Appointment [facility] Infusion [facility] 1 [address] [place] [address] 03/10/2025 8:30 AM EDT Clinical Support PAV Hematology/BMT and Cellular Therapy Program [address] [address] 03/10/2025 9:00 AM EDT Office Visit PAV Hematology/BMT and Cellular Therapy Program [address] [phone] Isaura Wynn, RETAIL PROPERTY MANAGER 800 [facility] [address] [place] [phone] 03/10/2025 11:20 AM EDT Office Visit Pav CC Head, Neck & Respiratory 800 [facility], 2nd [place] [address] Elsa Razo, RETAIL PROPERTY MANAGER 800 [place] [address] documented as of this encounter Procedures Procedure [...] Units, Irradiated (01/17/2025 8:56 AM EDT) Pathologist [facility] Product Code [id number] BLOO D BANK Dispense Status Transfused BLOOD BANK Blood Expiration Date [id number] BLOOD BANK Unit Number [id number] B LOOD BANK Product Blood Type 9500 BLOOD BANK Blood Type O- BLOOD BANK Crossmatch Compatible BLOOD BANK Other Kayli CHIU BLOOD BANK PRODUCT ORDER VIKAS Final Result Performing Organization Address City/State/[facility] Co de Phone Number BLOOD BANK 800 [place] [address], * (ABNORMAL) CBC and differential (01/17/2025 8:03 AM EDT) WBC Count 0.54(LL) 3.70 - 10.30 10*3/uL LAB HEMATOLOGY METHOD 01/17/2025 9:41 AM EDT [facility] RBC Count 2.55(L) 4.60 - 6.10 10*6/uL LAB HEMATOLOGY METHOD 01/17/2025 9:41 AM EDT [facility] HGB 7.6(L) 13.7 - 17.5 g/dL LAB HEMATOLOGY METHOD 01/17/2025 9:41 AM EDT [facility] HCT 21.6(L) 40.0 - 51.0 % LAB HEMATOLOGY METHOD 01/17/2025 9:41 AM EDT [facility] Platelet Count 23(L) 155 - 369 10*3/uL LAB HEMATOLOGY METHOD 01/17/2025 9:41 AM EDT [facility] MCV 85 79 - 98 fL LAB HEMATOLOGY METHOD 01/17/2025 9:41 AM EDT [facility] MCH 29.8 26.0 - 32.0 pg LAB HEMATOLOGY METHOD 01/17/2025 9:41 AM EDT [facility] MCHC 35.2 30.7 - 35.5 g/dL LAB HEMATOLOGY METHOD 01/17/2025 9:41 AM EDT [facility] RDW 14.2 11.5 - 14.5 % LAB HEMATOLOGY METHOD 01/17/2025 9:41 AM EDT [facility] MPV 9.0 8.8 - 12.5 fL LAB HEMATOLOGY METHOD 01/17/2025 9:41 AM EDT [facility] nRBC 0.0 <=0.0 per 100 WBCs LAB HEMATOLOGY METHOD 01/17/2025 9:41 AM EDT [facility] Differential Type Automated LAB HEMATOLOGY METHOD 01/17/2025 9:41 AM EDT [facility] Neutrophils % 7 % LAB HEMATOLOGY METHOD 01/17/2025 9:41 AM EDT [facility] Lymphocytes % 91 % LAB HEMATOLOGY METHOD 01/17/2025 9:41 AM EDT [facility] Monocytes % 2 % LAB HEMATOLOGY METHOD 01/17/2025 9:41 AM EDT [facility] Eosinophils % 0 % LAB HEMATOLOGY METHOD 01/17/2025 9:41 AM EDT [facility] Basophils % 0 % LAB HEMATOLOGY METHOD 01/17/2025 9:41 AM EDT [facility] Immature Granulocytes % 0 % LAB HEMATOLOGY METHOD 01/17/2025 9:41 AM EDT [facility] Neutrophils Absolute 0.04(LL) 1.60 - 6.10 10*3/uL LAB HEMATOLOGY METHOD 01/17/2025 9:41 AM EDT [facility] Lymphocytes Absolute 0.49(L) 1.20 - 3.90 10*3/uL LAB HEMATOLOGY METHOD 01/17/2025 9:41 AM EDT [facility] Monocytes Absolute 0.01(L) 0.30 - 0.90 10*3/uL LAB HEMATOLOGY METHOD 01/17/2025 9:41 AM EDT [facility] Eosinophils Absolute 0.00 0.00 - 0.50 10*3/uL LAB HEMATOLOGY METHOD 01/17/2025 9:41 AM EDT [facility] Basophils Absolute 0.00 0.00 - 0.10 10*3/uL LAB HEMATOLOGY METHOD 01/17/2025 9:41 AM EDT [facility] Immature Granulocytes Absolute 0.00 0.00 - 0.06 10*3/uL LAB HEMATOLOGY METHOD 01/17/2025 9:41 AM EDT [facility] Blood Blood sample taken from central line / Unknown (Port) Long-term Catheter / Unknown 01/17/2025 8:03 AM EDT 01/17/2025 8:07 AM EDT Narrative [facility] - 01/17/2025 9:41 AM EDT Therapeutic decision making should be based on absolute values, rather than percentages. us Virgen Vargas MD LAB BLOOD ORDERABLES Final Re sult [facility] [address] [place] [address] documented in this encounter Visit Diagnoses Diagnosis [...] as of this encounter Care Teams Child Care Giver Relationship Specialty Start Date End Date Zhao Hraris MD [address] [place] [address] PCP - General 12/03/20 documented as of this encounter
[2025-01-26] VITALS (21 sets, daily range): BP systolic 99–115; BP diastolic 57–70; PULSE 64–69; RESP 18; TEMP 36.4–37.1; O2SAT 98–100; BMI 30.9
--- OUTSIDE RECORDS SUMMARY | 2025-01-26 08:32 | XMS_ITS | Encounter Summary ---
Author Organization Healthcare Address [address] [place] [address] Care Team Providers Care Punch Hand Name Role Phone Zhao Harris MD Primary Care Provider [phone] Encounter Details Date Type Department Care Team [...] first t manav in the morning (EYE-DIRECTOR BIOMEDICAL ENGINEERING) to steady your nerves or to get [...] Interventional Radiology [address] [place] [address] 02/10/2025 8:30 AM EDT Clinical Support [facility] Hematology/BMT and Cellular Therapy Program [address] [address] 02/10/2025 9:00 AM EDT Office Visit [facility] CC Hematology/BMT and Cellular Therapy Program [address] [address] Elaina Boss PA 800 [facility] [address] [place] [address] 02/10/2025 10:30 AM EDT Appointment [facility] 1 [address] [place] [address] 02/11/2025 2:00 PM EDT Appointment [facility] 1 [address] [place] [address] 02/12/2025 2:00 PM EDT Appointment [facility] 1 [address] [place] [address] 02/13/2025 2:00 PM EDT Appointment [facility] 1 [address] [place] [address] 02/14/2025 2:00 PM EDT Appointment [facility] 1 [address] [place] [address] 03/10/2025 8:30 AM EDT Clinical Support [facility] Hematology/BMT and Cellular Therapy Program [address] [place] [address] 03/10/2025 9:00 AM EDT Office Visit P[facility] Hematology/BMT and Cellular Therapy Program [address] [address] Isaura Wynn, ENROLLMENT REPRESENTATIVE 800 [facility] [address] [place] [phone] 03/10/2025 11:20 AM EDT Office Visit Pav CC Head, Neck & Respiratory 800 [facility], 2nd [place] [address] Elsa Razo, ENROLLMENT REPRESENTATIVE 800 [place] [phone] documented as of this encounter Visit Diagnoses [...] documented as of this encounter Care Teams Punch Hand Relationship Specialty Start Date End Date Zhao Harris MD [address]10 [place] [facility] [place] [address] PCP - General 12/03/20 documented as of this encounter
--- OUTSIDE RECORDS SUMMARY | 2025-01-26 08:33 | XMS_ITS | Encounter Summary ---
Author Organization [facility] Address [address] [place] [address] Care Team Providers Care Bark Skinner Name Role Phone Zhao Harris MD Primary Care Provider [phone] Encounter Details Date Type Department Care Team [...] drink first t manav in the morning (EYE-STATION MANAGER) to steady your nerves or to [...] Upcoming Encounters Date Type Department Care Team ([facility] Contact Info) Description 02/02/2025 11:00 AM EDT Appointment P[facility] A Interventional Radiology [address] [place] [address] 02/10/2025 8:30 AM EDT Clinical Support [facility] CC Hematology/BMT and Cellular Therapy Program [address] [place] [address] [place] [address] 02/10/2025 9:00 AM EDT Office Visit [facility] CC Hematology/BMT and Cellular Therapy Program [address] [place] [phone] Elaina Boss, PA 800 [facility] [address] [place] [address] 02/10/2025 10:30 AM EDT Appointment [facility] 1 [address] [place] [address] 02/11/2025 2:00 PM EDT Appointment [facility] 1 [address] [place] [address] 02/12/2025 2:00 PM EDT Appointment [facility] 1 [address] [place] [address] 02/13/2025 2:00 PM EDT Appointment [facility] 1 [address] [place] [address] 02/14/2025 2:00 PM EDT Appointment [facility] 1 4 [place] [address] 03/10/2025 8:30 AM EDT Clinical Support [facility] CC Hematology/BMT and Cellular Therapy Program [address] [place] [address] [place] [address] 03/10/2025 9:00 AM EDT Office Visit [facility] CC Hematology/BMT and Cellular Therapy Program [address] [place] [address] [place] [phone] Isaura Wynn, SHELL FISHERMAN 800 [facility] 1st [place] [address] 03/10/2025 11:20 AM EDT Office Visit Pav CC Head, Neck & Respiratory 800 [facility], 2nd [place] [address] Elsa Razo, SHELL FISHERMAN 800 [place] [address] documented as of this encounter Visit Diagnoses [...] documented as of this encounter Care Teams Bark Skinner Relationship Specialty Start Date End Date Zhao Harris MD 1210 [facility] [address] [place] [address] PCP - General 12/03/20 documented as of this encounter
--- OUTSIDE RECORDS SUMMARY | 2025-01-26 08:33 | XMS_ITS | Encounter Summary ---
Author Organization [facility] Address [address] [place] [address] Care Team Providers Care Chief Investment Officer Name Role Phone Zhao Harris MD Primary Care Provider [phone] Encounter Details Date Type Department Care Team ([facility] st Contact Info) Description 12/23/2024 Orders Only [facility] CC Hematology/BMT and Cellular Therapy Program [address] [place] [address] [place] [address] Adam Conway RN [facility] HEMATOLOGY PROGRAM CLINIC Myelodysplasia (myelodysplastic syndrome) (CMS/HCC) [...] drink first t manav in the morning (EYE-FABRIC AND TEXTILE FACTORY WORKER) to steady your nerves or to [...] Appointment PAV A Interventional Radiology [address] [place] [address] 02/10/2025 8:30 AM EDT Clinical Support PAV Hematology/BMT and Cellular Therapy Program [address] [address] 02/10/2025 9:00 AM EDT Office Visit PAV Hematology/BMT and Cellular Therapy Program [address] [address] Elaina Boss, PA 800 [facility] [address] [place] [address] 02/10/2025 10:30 AM EDT Appointment [facility] 1 [address] [place] [address] 02/11/2025 2:00 PM EDT Appointment [facility] 1 [address] [place] [address] 02/12/2025 2:00 PM EDT Appointment [facility] 1 [address] [place] [address] 02/13/2025 2:00 PM EDT Appointment [facility] 1 [address] [place] [address] 02/14/2025 2:00 PM EDT Appointment [facility] 1 [address] [place] [address] 03/10/2025 8:30 AM EDT Clinical Support P[facility] CC Hematology/BMT and Cellular Therapy Program 750 [facility], [address] [place] [address] [place] [phone] 03/10/2025 9:00 AM EDT Office Visit P[facility] CC Hematology/BMT and Cellular Therapy Program 750 [facility] [place] [address] Isaura Wynn, BRAIDING MACHINE OPERATOR 800 [facility] [address] [place] [phone] 03/10/2025 11:20 AM EDT Office Visit Pav CC Head, Neck & Respiratory 800 [facility], 2nd [place] [address] Elsa Razo, BRAIDING MACHINE OPERATOR 800 [place] [phone] Scheduled Orders Name Type Priority Associated Diagnoses Orde r Schedule CBC and Differential Lab Routine Myelodysplasia (myelodysplastic syndrome) (CMS/HCC) Expected: 01/06/2025, Expires: 06/26/2026 documented as of this encounter Visit Diagnoses Diagnosis Myelodysplasia (myelodysplastic syndrome) ([facility]/HCC)- Primary Myelodysplastic syndrome, unspecified documented in this encounter Additional Health Concerns Assessment Noted Time PHQ-9 Depression Total Score: 0 09/11/19 25 9:15 AM EST A fall risk assessment has been complete d for the patient 12/22/2024 8:26 AM EDT A Body Mass Index follow-up plan has been documented for the patient 12/16/2024 12:23 PM EDT documented as of this encounter Care Teams Chief Investment Officer Relationship Specialty Start Date End Date Zhao Hraris MD 1210 [facility] [address] [place] [address] PCP - General 12/03/20 documented as of this encounter
--- OUTSIDE RECORDS SUMMARY | 2025-01-26 08:33 | XMS_ITS | Encounter Summary ---
Author Organization [facility] Address [address] [place] [address] Care Team Providers Care Director Inpatient Headache Program Name Role Phone Zhao Harris MD Primary Care Provider [phone] Encounter Details Date Type Department Care Team [...] drink first t manav in the morning (EYE-SHIFT SUPERVISOR) to steady your nerves or to [...] Upcoming Encounters Date Type Department Care Team ([facility] Contact Info) Description 02/02/2025 11:00 AM EDT Appointment PAV A Interventional Radiology [address] [place] [address] 02/10/2025 8:30 AM EDT Clinical Support P[facility] CC Hematology/BMT and Cellular Therapy Program [address] [place] [address] [place] [address] 02/10/2025 9:00 AM EDT Office Visit [facility] CC Hematology/BMT and Cellular Therapy Program [address] [place] [phone] Elaina Boss, PA 800 [facility] [address] [place] [address] 02/10/2025 10:30 AM EDT Appointment [facility] 1 [address] [place] [address] 02/11/2025 2:00 PM EDT Appointment [facility] 1 [address] [place] [address] 02/12/2025 2:00 PM EDT Appointment [facility] 1 [address] [place] [address] 02/13/2025 2:00 PM EDT Appointment [facility] 1 [address] [place] [address] 02/14/2025 2:00 PM EDT Appointment [facility] 1 4 [place] [address] 03/10/2025 8:30 AM EDT Clinical Support [facility] CC Hematology/BMT and Cellular Therapy Program [address] [place] [address] [place] [address] 03/10/2025 9:00 AM EDT Office Visit [facility] CC Hematology/BMT and Cellular Therapy Program [address] [place] [address] [place] [phone] Isaura Wynn, SCUBA DIVING INSTRUCTOR 800 [facility] [address] [place] [address] 03/10/2025 11:20 AM EDT Office Visit Pav CC Head, Neck & Respiratory 800 [facility], 2nd [place] [address] Elsa Razo, SCUBA DIVING INSTRUCTOR 800 [place] [phone] documented as of this encounter Visit Diagnoses [...] as of this encounter Care Teams Director Inpatient Headache Program Relationship Specialty Start Date End Date Zhao Harris MD 1210 [facility] [address] [place] [id number] PCP - General 12/03/20 documented as of this encounter
--- OUTSIDE RECORDS SUMMARY | 2025-01-26 08:33 | XMS_ITS | Encounter Summary ---
Author Organization [facility] Address [address] [place] [address] Care Team Providers Care Dehydrator Name Role Phone Zhao Harris MD Primary Care Provider [phone] Encounter Details Date Type Department Care Team [...] first t manav in the morning (EYE-MARKETING CONTENT SPECIALIST) to steady your nerves or to [...] ([facility] Contact Info) Description 02/02/2025 11:00 AM EDT Appointment PAV A Interventional Radiology [address] [place] [address] 02/10/2025 8:30 AM EDT Clinical Support [facility] CC Hematology/BMT and Cellular Therapy Program [address] [place] [address] [place] [address] 02/10/2025 9:00 AM EDT Office Visit [facility] CC Hematology/BMT and Cellular Therapy Program [address] [place] [phone] Elaina Boss, PA 800 [facility] [address] [place] [address] 02/10/2025 10:30 AM EDT Appointment [facility] 1 [address] [place] [address] 02/11/2025 2:00 PM EDT Appointment [facility] 1 [address] [place] [address] 02/12/2025 2:00 PM EDT Appointment [facility] 1 [address] [place] [address] 02/13/2025 2:00 PM EDT Appointment [facility] 1 [address] [place] [address] 02/14/2025 2:00 PM EDT Appointment [facility] 1 4 [place] [address] 03/10/2025 8:30 AM EDT Clinical Support [facility] CC Hematology/BMT and Cellular Therapy Program [address] [place] [address] [place] [address] 03/10/2025 9:00 AM EDT Office Visit [facility] CC Hematology/BMT and Cellular Therapy Program [address] [place] [address] [place] [address] Isaura Wynn, SYSTEMS PROGRAMMER ANALYST 800 [facility] [address] [place] [address] 03/10/2025 11:20 AM EDT Office Visit Pav CC Head, Neck & Respiratory 800 [facility], 2nd [place] [address] Elsa Razo, SYSTEMS PROGRAMMER ANALYST 800 [place] [address] documented as of this encounter Visit Diagnoses [...] documented as of this encounter Care Teams Dehydrator Relationship Specialty Start Date End Date Zhao Harris MD 1210 [facility] [address] [place] [id number] PCP - General 12/03/20 documented as of this encounter
--- OUTSIDE RECORDS SUMMARY | 2025-01-26 08:33 | XMS_ITS | Encounter Summary ---
Author Organization [facility] Address [address] [place] [address] Care Team Providers Care Gas Or Petroleum Operator Name Role Phone Zhao Harris MD Primary Care Provider [phone] Encounter Details Date Type Department Care Team ([facility] st Contact Info) Description 12/09/2024 Telephone PAV CC Hematology/BMT and Cellular Therapy Program [address] [place] [address] [place] [address] Essie Ricks RN [facility] HEMATOLOG[facility] Social History [...] first t manav in the morning (EYE-LEGAL DEPARTMENT MANAGER) to steady your nerves or to [...] Appointment PAV A Interventional Radiology [address] [place] [address] 02/10/2025 8:30 AM EDT Clinical Support PAV CC Hematology/BMT and Cellular Therapy Program [address] [address] 02/10/2025 9:00 AM EDT Office Visit PAV Hematology/BMT and Cellular Therapy Program [address] [place] [address] Elaina Boss, ARAM 800 [facility] [address] [place] [address] 02/10/2025 10:30 AM EDT Appointment [facility] Infusion [facility] 1 744 [place] [address] 02/11/2025 2:00 PM EDT Appointment [facility] 1 [address] [place] [address] 02/12/2025 2:00 PM EDT Appointment [facility] 1 [address] [place] [address] 02/13/2025 2:00 PM EDT Appointment [facility] 1 [address] [place] [address] 02/14/2025 2:00 PM EDT Appointment [facility]fusion [facility] 1 [address] [place] [address] 03/10/2025 8:30 AM EDT Clinical Support PAV Hematology/BMT and Cellular Therapy Program 750 [facility], [address] [place] [address] 03/10/2025 9:00 AM EDT Office Visit PAV CC Hematology/BMT and Cellular Therapy Program [address] [address] Isaura Wynn, DIALYSIS NURSE 800 [facility] [address]st [place] [address] 03/10/2025 11:20 AM EDT Office Visit Pav CC Head, Neck & Respiratory 800 [facility], 2nd [place] [address] Elsa Razo, DIALYSIS NURSE 800 [place] [address] documented as of this encounter Visit Diagnoses [...] documented as of this encounter Care Teams Gas Or Petroleum Operator Relationship Specialty Start Date End Date Zhao Harris MD 1210 [facility] [address] [place] [address] PCP - General 12/03/20 documented as of this encounter
--- OUTSIDE RECORDS SUMMARY | 2025-01-26 08:33 | XMS_ITS ---
Author Organization [facility] Address [address] [place] [address] Care Team Providers Care Residential Solar Sales Consultant Name Role Phone Zhao Harris MD Primary Care Provider [phone] Active Problems Problem Noted Date Diagnosed Date [...] Medications Current Day (Day 1 5, Cycle 1 - Planned for 01/27/2025) Next Day (Day 17, Cycle 1 - Planned for 01/29/2025) decitabine (Dacogen)decitabi ne (Dacogen) IVPBvenetoclax (Venclexta) No medications scheduled. No medications scheduled. HEM/BMT Blood Administration for Outpatient* Plan Start Date:10/22/2024 Plan Provider:Kayli Ospina PA Linked Problems Myelodysplasia (myelodysplas tic syndrome) ([facility]/HCC)Thrombocytopenia (CMS/HCC) Treatment Medications No medications scheduled. [...]
--- OUTSIDE RECORDS SUMMARY | 2025-01-26 08:33 | XMS_ITS | Encounter Summary ---
Author Organization [facility] Address [address] [place] [address] Care Team Providers Care Problem Manager Name Role Phone Zhao Harris MD Primary Care Provider [phone] Encounter Details Date Type Department Care Team [...] drink first t manav in the morning (EYE-BLEACHER GROUNDWOOD PULP) to steady your nerves or to get [...] Upcoming Encounters Date Type Department Care Team ([facility] Contact Info) Description 02/02/2025 11:00 AM EDT Appointment PAV A Interventional Radiology [address] [place] [address] 02/10/2025 8:30 AM EDT Clinical Support PAV CC Hematology/BMT and Cellular Therapy Program [address] [place] [address] [place] [address] 02/10/2025 9:00 AM EDT Office Visit PAV CC Hematology/BMT and Cellular Therapy Program [address] [place] [address] Elaina Boss, PA 800 [facility] [address] [place] [address] 02/10/2025 10:30 AM EDT Appointment [facility] Infusion [facility] 1 744 [place] [address] 02/11/2025 2:00 PM EDT Appointment [facility] Infusion [facility] 1 [address] [place] [address] 02/12/2025 2:00 PM EDT Appointment [facility] Infusion [facility] 1 [address] [place] [address] 02/13/2025 2:00 PM EDT Appointment [facility] Infusion [facility] 1 [address] [place] [address] 02/14/2025 2:00 PM EDT Appointment [facility] Infusion [facility] 1 4 [place] [address] 03/10/2025 8:30 AM EDT Clinical Support PAV CC Hematology/BMT and Cellular Therapy Program [address] [place] [address] [place] [address] 03/10/2025 9:00 AM EDT Office Visit PAV CC Hematology/BMT and Cellular Therapy Program [address] [place] [address] [place] [address] Isauar Wynn, PROPERTY DEVELOPER 800 [facility] 1st [place] [address] 03/10/2025 11:20 AM EDT Office Visit Pav CC Head, Neck & Respiratory 800 [facility], 2nd [place] [address] Elsa Razo, PROPERTY DEVELOPER 800 [place] [address] documented as of this encounter Visit Diagnoses [...] documented as of this encounter Care Teams Problem Manager Relationship Specialty Start Date End Date Zhao Harris MD 1210 [facility] [address] [place] [id number] PCP - General 12/03/20 documented as of this encounter
--- OUTSIDE RECORDS SUMMARY | 2025-01-26 08:33 | XMS_ITS | Encounter Summary ---
Author Organization [facility] Address [address] [place] [address] Care Team Providers Care Trouble Operator Name Role Phone Zhao Harris MD Primary Care Provider [phone] Encounter Details Date Type Department Care Team [...] drink first t manav in the morning (EYE-CAREER CONSULTANT) to steady your nerves or to [...] Upcoming Encounters Date Type Department Care Team ([facility] Contact Info) Description 02/02/2025 11:00 AM EDT Appointment PAV A Interventional Radiology [address] [place] [address] 02/10/2025 8:30 AM EDT Clinical Support PAV CC Hematology/BMT and Cellular Therapy Program [address] [place] [address] [place] [address] 02/10/2025 9:00 AM EDT Office Visit PAV CC Hematology/BMT and Cellular Therapy Program [address] [place] [address] Elaina Boss, PA 800 [facility] [address] [place] [address] 02/10/2025 10:30 AM EDT Appointment [facility] Infusion [facility] 1 [address] [place] [address] 02/11/2025 2:00 PM EDT Appointment [facility] Infusion [facility] 1 [address] [place] [address] 02/12/2025 2:00 PM EDT Appointment [facility] Infusion [facility] 1 [address] [place] [address] 02/13/2025 2:00 PM EDT Appointment [facility] Infusion [facility] 1 [address] [place] [address] 02/14/2025 2:00 PM EDT Appointment [facility] Infusion [facility] 1 4 [place] [address] 03/10/2025 8:30 AM EDT Clinical Support PAV CC Hematology/BMT and Cellular Therapy Program [address] [place] [address] [place] [address] 03/10/2025 9:00 AM EDT Office Visit PAV CC Hematology/BMT and Cellular Therapy Program [address] [place] [address] [address] [place] [address] Isaura Wynn, AIR INTELLIGENCE OFFICER 800 [facility] 1st [place] [address] 03/10/2025 11:20 AM EDT Office Visit Pav CC Head, Neck & Respiratory 800 [facility], 2nd [place] [address] Elsa Razo, AIR INTELLIGENCE OFFICER 800 [place] [address] documented as of this encounter Visit Diagnoses [...] documented as of this encounter Care Teams Trouble Operator Relationship Specialty Start Date End Date Zhao Harris MD 1210 [facility] [address] [place] [address] PCP - General 12/03/20 documented as of this encounter
--- OUTSIDE RECORDS SUMMARY | 2025-01-26 08:33 | XMS_ITS | Encounter Summary ---
Author Organization [facility] Address [address] [place] [address] Care Team Providers Care Mail Caller Name Role Phone Zhao Harris MD Primary Care Provider [phone] Encounter Details Date Type Department Care Team [...] drink first t manav in the morning (EYE-BUTADIENE CONVERTER UTILITY OPERATOR) to steady your nerves or to [...] Upcoming Encounters Date Type Department Care Team ([facility] Contact Info) Description 02/02/2025 11:00 AM EDT Appointment PAV A Interventional Radiology [address] [place] [address] 02/10/2025 8:30 AM EDT Clinical Support PAV CC Hematology/BMT and Cellular Therapy Program [address] [place] [address] [place] [address] 02/10/2025 9:00 AM EDT Office Visit PAV CC Hematology/BMT and Cellular Therapy Program [address] [place] [address] Elaina Boss, PA 800 [facility] [address] [place] [address] 02/10/2025 10:30 AM EDT Appointment [facility] Infusion [facility] 1 744 [place] [address] 02/11/2025 2:00 PM EDT Appointment [facility] Infusion [facility] 1 [address] [place] [address] 02/12/2025 2:00 PM EDT Appointment [facility] Infusion [facility] 1 [address] [place] [address] 02/13/2025 2:00 PM EDT Appointment [facility] Infusion [facility] 1 [address] [place] [address] 02/14/2025 2:00 PM EDT Appointment [facility] Infusion [facility] 1 4 [place] [address] 03/10/2025 8:30 AM EDT Clinical Support PAV CC Hematology/BMT and Cellular Therapy Program [address] [place] [address] [place] [address] 03/10/2025 9:00 AM EDT Office Visit PAV CC Hematology/BMT and Cellular Therapy Program [address] [place] [address] [place] [address] Isaura Wynn, RANGE EXAMINER 800 [facility] [address] [place] [address] 03/10/2025 11:20 AM EDT Office Visit Pav CC Head, Neck & Respiratory 800 [facility], 2nd [place] [address] Elsa Razo, RANGE EXAMINER 800 [place] [address] documented as of this encounter Visit Diagnoses [...] documented as of this encounter Care Teams Mail Caller Relationship Specialty Start Date End Date Zhao Harris MD 1210 [facility] [address] [place] [id number] PCP - General 12/03/20 documented as of this encounter
--- OUTSIDE RECORDS SUMMARY | 2025-01-26 08:33 | XMS_ITS | Encounter Summary ---
Author Organization [facility] Address [address] [place] [address] Care Team Providers Care Hadoop Infrastructure Architect Name Role Phone Zhao Harris MD Primary Care Provider [phone] Encounter Details Date Type Department Care Team [...] drink first t manav in the morning (EYE-PHARMACY DISTRICT MANAGER) to steady your nerves or to [...] Appointment PAV A Interventional Radiology [address] [place] [address] 02/10/2025 8:30 AM EDT Clinical Support PAV CC Hematology/BMT and Cellular Therapy Program [address] [place] [address] [place] [address] 02/10/2025 9:00 AM EDT Office Visit PAV CC Hematology/BMT and Cellular Therapy Program [address] [place] [address] Elaina Boss, PA 800 [facility] [address] [place] [address] 02/10/2025 10:30 AM EDT Appointment [facility] Infusion Clinic 1 [address] [place] [address] 02/11/2025 2:00 PM EDT Appointment [facility] Infusion [facility] 1 [address] [place] [address] 02/12/2025 2:00 PM EDT Appointment [facility] Infusion [facility] 1 [address] [place] [address] 02/13/2025 2:00 PM EDT Appointment [facility] Infusion [facility] 1 [address] [place] [address] 02/14/2025 2:00 PM EDT Appointment [facility] Infusion [facility] 1 4 [place] [address] 03/10/2025 8:30 AM EDT Clinical Support PAV CC Hematology/BMT and Cellular Therapy Program [address] [place] [address] [place] [address] 03/10/2025 9:00 AM EDT Office Visit PAV CC Hematology/BMT and Cellular Therapy Program [address] [place] [address] [place] [address] Isaura Wynn, DISTRIBUTION TECHNICIAN 800 [facility] [address]st [place] [address] 03/10/2025 11:20 AM EDT Office Visit Pav CC Head, Neck & Respiratory 800 [facility], 2nd [place] [address] Elsa Razo, DISTRIBUTION TECHNICIAN 800 [place] [address] documented as of this encounter Visit Diagnoses [...] documented as of this encounter Care Teams Hadoop Infrastructure Architect Relationship Specialty Start Date End Date Zhao Harris MD 1210 [facility] [address] [place] [id number] PCP - General 12/03/20 documented as of this encounter
--- OUTSIDE RECORDS SUMMARY | 2025-01-26 08:33 | XMS_ITS | Encounter Summary ---
Author Organization [facility] Address [address] [place] [address] Care Team Providers Care Safety Associate Name Role Phone Zhao Harris MD Primary Care Provider [phone] Reason for Visit * Reason Comments Med Refill Encounter Details Date Type Department Care Team ([facility] st Contact Info) Description 01/01/2025 Refill [facility] [place] 800 [facility]. [address] [place] [address] Ra Best MD [address] [place] [address] Social History Tobacco Use Types Packs/Day Years [...] drink first t manav in the morning (EYE-WAITER/WAITRESS BAR) to steady your nerves or to get [...] Appointment PAV A Interventional Radiology [address] [place] [address] 02/10/2025 8:30 AM EDT Clinical Support PAV Hematology/BMT and Cellular Therapy Program [address] [place] [address] 02/10/2025 9:00 AM EDT Office Visit PAV Hematology/BMT and Cellular Therapy Program [address] [address] Elaina Boss, ARAM 800 [facility] [address] [place] [address] 02/10/2025 10:30 AM EDT Appointment [facility] Infusion Clinic 1 744 [place] [address] 02/11/2025 2:00 PM EDT Appointment [facility] Infusion [facility] 1 [address] [place] [address] 02/12/2025 2:00 PM EDT Appointment [facility] Infusion [facility] 1 [address] [place] [address] 02/13/2025 2:00 PM EDT Appointment [facility] Infusion [facility] 1 [address] [place] [address] 02/14/2025 2:00 PM EDT Appointment [facility] Infusion [facility] 1 [address] [place] [address] 03/10/2025 8:30 AM EDT Clinical Support PAV CC Hematology/BMT and Cellular Therapy Program [address] [address] 03/10/2025 9:00 AM EDT Office Visit PAV CC Hematology/BMT and Cellular Therapy Program 750 [facility], [facility] [place] [address] Isaura Wynn, MECHANICAL FIELD ENGINEER 800 [facility] 1st [place] [address] 03/10/2025 11:20 AM EDT Office Visit Pav CC Head, Neck & Respiratory 800 [facility], 2nd [place] [address] Elsa Razo, MECHANICAL FIELD ENGINEER 800 [place] [address] documented as of this encounter Visit Diagnoses [...] documented as of this encounter Care Teams Safety Associate Relationship Specialty Start Date End Date Zhao Harris MD 1210 [facility] [address] [place] [address] PCP - General 12/03/20 documented as of this encounter
--- OUTSIDE RECORDS SUMMARY | 2025-01-26 08:34 | XMS_ITS | Encounter Summary ---
Author Organization [facility] Address [address] 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) Virgen Vargas MD [address] [address] Phone: tel:[phone] fax:[phone] [facility] Multidisciplinary Oncology Clinic 800 [place] [address] Phone: tel: fax: Referral ID Status Reason Start Date Expiration Date V isits Requested Visits Authorized [id number] Closed Specialty Services Required 12/11/2024 06/12/2026 1 1 Scheduling Instructions AML, evaluation for clinical trials * Consultation (Routine) - Closed Specialty Diagnoses / Procedures Referred By Justice mcgee Referred To Contact Medical Oncology Diagnoses 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) Virgen Vargas MD [address] [address] Phone: tel: fax: Referral ID Status Reason Start Date Expiration Date V isits Requested Visits Authorized [id number] Closed Specialty Services Required 12/11/2024 06/12/2026 1 1 Scheduling Instructions AML evaluation for clinical trials Encounter Details Date Type Department Care Team ([facility] Contact Info) Description 12/11/2024 Orders Only PAV CC Hematology/BMT and Cellular Therapy Program 750 [facility], [address]st [place] [address] Shahla Mejia RN [facility] AMB SERV ADMIN Acute myeloid leukemia [...] drink first t manav in the morning (EYE-FAVOR MAKER) to steady your nerves or to get [...] [facility] Contact Info) Description 02/02/2025 11:00 AM EDT Appointment PAV A Interventional Radiology [address] [place] [address] 02/10/2025 8:30 AM EDT Clinical Support PAV Hematology/BMT and Cellular Therapy Program [address] [address] 02/10/2025 9:00 AM EDT Office Visit PAV Hematology/BMT and Cellular Therapy Program [address] [address] Elaina Boss, PA 800 [facility] [address] [place] [address] 02/10/2025 10:30 AM EDT Appointment [facility] Infusion [facility] 1 744 [place] [address] 02/11/2025 2:00 PM EDT Appointment [facility] Infusion [facility] 1 [address] [place] [address] 02/12/2025 2:00 PM EDT Appointment [facility] Infusion [facility] 1 [address] [place] [address] 02/13/2025 2:00 PM EDT Appointment [facility] Infusion [facility] 1 [address] [place] [address] 02/14/2025 2:00 PM EDT Appointment [facility] Infusion [facility] 1 [address] [place] [address] 03/10/2025 8:30 AM EDT Clinical Support PAV Hematology/BMT and Cellular Therapy Program [address] [address] 03/10/2025 9:00 AM EDT Office Visit PAV Hematology/BMT and Cellular Therapy Program [address] [address] Isaura Wynn, PLATE SLITTER AND INSPECTOR 800 [facility] [address] [place] [phone] 03/10/2025 11:20 AM EDT Office Visit Pav CC Head, Neck & Respiratory 800 [facility], 2nd [place] [address] Elsa Razo, PLATE SLITTER AND INSPECTOR 800 [place] [address] Scheduled Referrals Name Type Priority Associated Diagnoses [...] documented as of this encounter Care Teams Hazardous Substances Scientist Relationship Specialty Start Date End Date Zhao Harris MD [address] [place] [address] PCP - General 12/03/20 documented as of this encounter
--- OUTSIDE RECORDS SUMMARY | 2025-01-26 08:34 | XMS_ITS | Encounter Summary ---
Author Organization [facility] Address [address] [place] [address] Care Team Providers Care Nutrition Services Aide Name Role Phone Zhao Harris MD Primary Care Provider [phone] Encounter Details Date Type Department Care Team [...] drink first t manav in the morning (EYE-SURVEYOR HYDROGRAPHIC) to steady your nerves or to get [...] A Interventional Radiology [address] [place] [address] 02/10/2025 8:30 AM EDT Clinical Support PAV Hematology/BMT and Cellular Therapy Program [address] [address] 02/10/2025 9:00 AM EDT Office Visit PAV Hematology/BMT and Cellular Therapy Program [address] [place] [address] Elaina Boss, ARAM 800 [facility] [address] [place] [address] 02/10/2025 10:30 AM EDT Appointment [facility] Infusion [facility] 1 744 [place] [address] 02/11/2025 2:00 PM EDT Appointment [facility] Infusion [facility] 1 [address] [place] [address] 02/12/2025 2:00 PM EDT Appointment [facility]fusion [facility] 1 [address] [place] [address] 02/13/2025 2:00 PM EDT Appointment [facility] Infusion [facility] 1 [address] [place] [address] 02/14/2025 2:00 PM EDT Appointment [facility]fusion [facility] 1 [address] [place] [address] 03/10/2025 8:30 AM EDT Clinical Support PAV CC Hematology/BMT and Cellular Therapy Program 750 [facility], [address] [place] [address] 03/10/2025 9:00 AM EDT Office Visit PAV CC Hematology/BMT and Cellular Therapy Program 750 [facility], [address] [place] [address] Isaura Wynn, EDUCATIONAL PSYCHOLOGY PROFESSOR 800 [facility] [address]st [place] [address] 03/10/2025 11:20 AM EDT Office Visit Pav CC Head, Neck & Respiratory 800 [facility], 2nd [place] [address] Elsa Razo, EDUCATIONAL PSYCHOLOGY PROFESSOR 800 [place] [address] documented as of this encounter Visit Diagnoses [...] as of this encounter Care Teams Nutrition Services Aide Relationship Specialty Start Date End Date Zhao Harris MD 1210 [facility] [address] [place] [address] PCP - General 12/03/20 documented as of this encounter
--- OUTSIDE RECORDS SUMMARY | 2025-01-26 08:34 | XMS_ITS | Encounter Summary ---
Author Organization [facility] Address [address] [place] [address] Care Team Providers Care Tong Carrier Name Role Phone Zhao Harris MD Primary Care Provider [phone] Encounter Details Date Type Department Care Team (Late st Contact Info) Description 12/04/2024 [facility]phone [facility] Inter[facility] Rad[facility] [address] [place] [address] Martha William Social History Tobacco [...] drink first t manav in the morning (EYE-TRANSFORMER ASSEMBLER) to steady your nerves or to [...] they need to bandage it. Requesting CB@ [phone] documented in this encounter Plan of Treatment Upcoming Encounters Date Type Department Care Team (Late st Contact Info) Description 02/02/2025 11:00 AM EDT Appointment PAV A Interventional Radiology [address] [place] [address] 02/10/2025 8:30 AM EDT Clinical Support PAV Hematology/BMT and Cellular Therapy Program [address] [address] 02/10/2025 9:00 AM EDT Office Visit PAV CC Hematology/BMT and Cellular Therapy Program [address] [address] Elaina Boss, ARAM 800 [facility] [address] [place] [address] 02/10/2025 10:30 AM EDT Appointment [facility] Infusion [facility] 1 744 [place] [address] 02/11/2025 2:00 PM EDT Appointment [facility] 1 744 [place] [address] 02/12/2025 2:00 PM EDT Appointment [facility] 1 744 [place] [address] 02/13/2025 2:00 PM EDT Appointment [facility] 1 744 [place] [address] 02/14/2025 2:00 PM EDT Appointment [facility] 1 [address] [place] [address] 03/10/2025 8:30 AM EDT Clinical Support PAV Hematology/BMT and Cellular Therapy Program [address] [address] 03/10/2025 9:00 AM EDT Office Visit PAV Hematology/BMT and Cellular Therapy Program [address] [address] Isaura Wynn, SUPERVISOR BEEHIVE KILN 800 [facility] 1st [place] [address] 03/10/2025 11:20 AM EDT Office Visit Pav CC Head, Neck & Respiratory 800 [facility], 2nd [place] [address] Elsa Razo, SUPERVISOR BEEHIVE KILN 800 [place] [address] documented as of this encounter Visit Diagnoses [...] documented as of this encounter Care Teams Tong Carrier Relationship Specialty Start Date End Date Zhao Harris MD [address] [address] PCP - General 12/03/20 documented as of this encounter
--- OUTSIDE RECORDS SUMMARY | 2025-01-26 08:34 | XMS_ITS | Encounter Summary ---
Author Organization [facility] Address [address] [place] [address] Care Team Providers Care Insurance Defense Attorney Name Role Phone Zhao Harris MD Primary Care Provider [phone] Encounter Details Date Type Department Care Team ([facility] st Contact Info) Description 01/20/2025 Telephone [facility] CC Hematology/BMT and Cellular Therapy Program [address] [phone] Elaina Boss, ARAM 800 [facility] [address] [place] [address] Social History Tobacco Use Types Packs/Day Years [...] drink first t manav in the morning (EYE-DUMP TRUCK DRIVER OFF HIGHWAY) to steady your nerves or to get [...] Telephone Encounter - Adam Conway RN - 01/20/2025 9:57 AM EDT RN spoke with Eliana and discussed order. She verbalized understanding. documented in this encounter Plan of Treatment Upcoming Encounters Date Type Department Care Team ([facility] st Contact Info) Description 02/02/2025 11:00 AM EDT Appointment PAV A Interventional Radiology [address] [place] [address] 02/10/2025 8:30 AM EDT Clinical Support P[facility] CC Hematology/BMT and Cellular Therapy Program [address] [address] 02/10/2025 9:00 AM EDT Office Visit PAV Hematology/BMT and Cellular Therapy Program [address] [phone] Elaina Boss, ARAM 800 [facility] [address] [place] [phone] 02/10/2025 10:30 AM EDT Appointment [facility] Infusion [facility] 1 [address] [place] [address] 02/11/2025 2:00 PM EDT Appointment [facility] 1 [address] [place] [address] 02/12/2025 2:00 PM EDT Appointment [facility] 1 [address] [place] [address] 02/13/2025 2:00 PM EDT Appointment [facility] 1 [address] [place] [address] 02/14/2025 2:00 PM EDT Appointment [facility] 1 [address] [place] [address] 03/10/2025 8:30 AM EDT Clinical Support P[facility] CC Hematology/BMT and Cellular Therapy Program [address] [address] 03/10/2025 9:00 AM EDT Office Visit [facility] CC Hematology/BMT and Cellular Therapy Program [address] [phone] Isaura Wynn, BLOOD DONOR RECRUITER 800 [facility] [address] [place] [phone] 03/10/2025 11:20 AM EDT Office Visit Pav CC Head, Neck & Respiratory 800 [facility], 2nd [place] [phone] Elsa Razo, BLOOD DONOR RECRUITER [address] [place] [phone] documented as of this encounter Visit Diagnoses [...] documented as of this encounter Care Teams Insurance Defense Attorney Relationship Specialty Start Date End Date Zhao Harris MD [address] [id number] PCP - General 12/03/20 documented as of this encounter
--- OUTSIDE RECORDS SUMMARY | 2025-01-26 08:34 | XMS_ITS | Encounter Summary ---
Author Organization [facility] Address [address] [place] [address] Care Team Providers Care Crop Picker Name Role Phone Zaho Harris MD Primary Care Provider [phone] Encounter Details Date Type Department Care Team [...] drink first t manav in the morning (EYE-ORACLE DRM CONSULTANT) to steady your nerves or to [...] Upcoming Encounters Date Type Department Care Team ([facility] Contact Info) Description 02/02/2025 11:00 AM EDT Appointment PAV A Interventional Radiology [address] [place] [address] 02/10/2025 8:30 AM EDT Clinical Support PAV CC Hematology/BMT and Cellular Therapy Program [address] [place] [address] [place] [address] 02/10/2025 9:00 AM EDT Office Visit P[facility] CC Hematology/BMT and Cellular Therapy Program [address] [place] [phone] Elaina Boss, [place] 800 [facility] [address] [place] [phone] 02/10/2025 10:30 AM EDT Appointment [facility]fusion [facility] 1 [address] [place] [address] 02/11/2025 2:00 PM EDT Appointment [facility] 1 [address] [place] [address] 02/12/2025 2:00 PM EDT Appointment [facility]fusion [facility] 1 [address] [place] [address] 02/13/2025 2:00 PM EDT Appointment [facility] 1 [address] [place] [address] 02/14/2025 2:00 PM EDT Appointment [facility]fusion [facility] 1 4 [place] [address] 03/10/2025 8:30 AM EDT Clinical Support P[facility] CC Hematology/BMT and Cellular Therapy Program [address] [place] [address] [place] [address] 03/10/2025 9:00 AM EDT Office Visit P[facility] CC Hematology/BMT and Cellular Therapy Program [address] [place] [address] [place] [phone] Isaura Wynn, DEBURRING TECHNICIAN 800 [facility] [address] [place] [address] 03/10/2025 11:20 AM EDT Office Visit Pav CC Head, Neck & Respiratory 800 [facility], 2nd [place] [address] Elsa Razo, DEBURRING TECHNICIAN 800 [place] [phone] documented as of this encounter Visit Diagnoses [...] documented as of this encounter Care Teams Crop Picker Relationship Specialty Start Date End Date Zhao Harris MD 1210 [facility] [address] [place] [phone] PCP - General 12/03/20 documented as of this encounter
--- OUTSIDE RECORDS SUMMARY | 2025-01-26 08:34 | XMS_ITS | Encounter Summary ---
Author Organization [facility] Address [address] [place] [address] Care Team Providers Care Transverse Abdominal Muscle Nurse Name Role Phone Zhao Harris MD Primary Care Provider [phone] Encounter Details Date Type Department Care Team ([facility] st Contact Info) Description 12/12/2024 Orders Only P[facility] CC Hematology/BMT and Cellular Therapy Program [address] [place] [address] [place] [address] Gricel Gonzalez RN [facility] HEMATOLOGY [...] drink first t manav in the morning (EYE-SHINGLES ROOFER) to steady your nerves or to get [...] PAV A Interventional Radiology [address] [place] [address] 02/10/2025 8:30 AM EDT Clinical Support PAV Hematology/BMT and Cellular Therapy Program [address] [address] 02/10/2025 9:00 AM EDT Office Visit PAV Hematology/BMT and Cellular Therapy Program [address] [phone] Elaina Boss, ARAM 800 [facility] [address] [place] [phone] 02/10/2025 10:30 AM EDT Appointment [facility]fusion [facility] 1 [address] [place] [address] 02/11/2025 2:00 PM EDT Appointment [facility]fusion [facility] 1 [address] [place] [address] 02/12/2025 2:00 PM EDT Appointment [facility] 1 [address] [place] [address] 02/13/2025 2:00 PM EDT Appointment [facility] 1 [address] [place] [address] 02/14/2025 2:00 PM EDT Appointment [facility] 1 [address] [place] [address] 03/10/2025 8:30 AM EDT Clinical Support PAV Hematology/BMT and Cellular Therapy Program 750 [facility] [place] [phone] 03/10/2025 9:00 AM EDT Office Visit P[facility] CC Hematology/BMT and Cellular Therapy Program 750 [facility], [address] [place] [phone] Isarua Wynn, SPECIAL SYSTEMS TECHNICIAN 800 [facility] [address] [place] [address] 03/10/2025 11:20 AM EDT Office Visit Pav CC Head, Neck & Respiratory 800 [facility], 2nd [place] [address] Elsa Razo, SPECIAL SYSTEMS TECHNICIAN [address] [place] [phone] documented as of this encounter Visit Diagnoses [...] documented as of this encounter Care Teams Transverse Abdominal Muscle Nurse Relationship Specialty Start Date End Date Zhao Harris MD [address] [place] [phone] PCP - General 12/03/20 documented as of this encounter
--- OUTSIDE RECORDS SUMMARY | 2025-01-26 08:34 | XMS_ITS | Encounter Summary ---
Author Organization [facility] Address [address] [place] [address] Care Team Providers Care Animal Maintenance Supervisor Name Role Phone Zhao Harris MD Primary Care Provider [phone] Encounter Details Date Type Department Care Team ([facility] st Contact Info) Description 12/16/2024 Orders Only PAV CC Hematology/BMT and Cellular Therapy Program [address] [phone] Christina Ramos MD 800 [facility] [address] [place] [address] Myelodysplasia (myelodysplastic syndrome) (CMS/HCC) (Primary Dx) Social [...] drink first t manav in the morning (EYE-WARP KNITTER HELPER) to steady your nerves or to [...] ([facility] st Contact Info) Description 02/02/2025 11:00 AM EDT Appointment PAV A Interventional Radiology [address] [place] [address] 02/10/2025 8:30 AM EDT Clinical Support P[facility] CC Hematology/BMT and Cellular Therapy Program [address] [address] 02/10/2025 9:00 AM EDT Office Visit PAV Hematology/BMT and Cellular Therapy Program [address] [phone] Elaina Boss, PA 800 [facility] [address] [place] [address] 02/10/2025 10:30 AM EDT Appointment [facility]fusion [facility] 1 [address] [place] [address] 02/11/2025 2:00 PM EDT Appointment [facility]fusion [facility] 1 [address] [place] [address] 02/12/2025 2:00 PM EDT Appointment [facility]fusion [facility] 1 [address] [place] [address] 02/13/2025 2:00 PM EDT Appointment [facility]fusion [facility] 1 [address] [place] [address] 02/14/2025 2:00 PM EDT Appointment [facility]fusion [facility] 1 [address] [place] [address] 03/10/2025 8:30 AM EDT Clinical Support P[facility] CC Hematology/BMT and Cellular Therapy Program 750 [facility] [place] [address] 03/10/2025 9:00 AM EDT Office Visit P[facility] CC Hematology/BMT and Cellular Therapy Program 750 [facility] [place] [address] Isaura Wynn, POPCORN CANDY MAKER 800 [facility] [address] [place] [address] 03/10/2025 11:20 AM EDT Office Visit Pav CC Head, Neck & Respiratory 800 [facility], 2nd [place] [address] Elsa Razo, POPCORN CANDY MAKER [address] [place] [address] documented as of this encounter Results * (ABNORMAL) Comprehensive metabolic panel (01/06/2025 8:49 AM EDT) Glucose, Plasma 100(H) 74 - 99 mg/dL 01/06/2025 9:34 AM EDT [facility] BUN, Plasma 8 8 - 23 mg/dL 01/06/2025 9:34 AM EDT [facility] Creatinine, Plasma 0.76 0.70 - 1.20 mg/dL 01/06/2025 9:34 AM EDT [facility] BUN/Creatinine Ratio 11 01/06/2025 9:34 AM EDT [facility] Sodium, Plasma 138 136 - 145 mmol/L 01/06/2025 9:34 AM EDT [facility] Potassium, Plasma 4.3 3.6 - 4.9 mmol/L 01/06/2025 9:34 AM EDT [facility] Chloride, Plasma 109(H) 97 - 107 mmol/L 01/06/2025 9:34 AM EDT [facility] CO2, Plasma 21(L) 22 - 29 mmol/L 01/06/2025 9:34 AM EDT [facility] Anion Gap 8 6 - 16 mmol/L 01/06/2025 9:34 AM EDT [facility] Total Calcium, Plasma 8.8(L) 8.9 - 10.2 mg/dL 01/06/2025 9:34 AM EDT [facility] Total Protein 6.6 6.3 - 7.9 g/dL 01/06/2025 9:34 AM EDT [facility] Albumin, Plasma 3.9 3.5 - 5.2 g/dL 01/06/2025 9:34 AM EDT [facility] AST, Plasma 25 10 - 50 U/L 01/06/2025 9:34 AM EDT [facility] ALT, Plasma 28 10 - 50 U/L 01/06/2025 9:34 AM EDT [facility] Alkaline Phosphatase, Plasma 83 40 - 115 U/L 01/06/2025 9:34 AM EDT [facility] Total Bilirubin, Plasma 0.5 0.2 - 1.1 mg/dL 01/06/2025 9:34 AM EDT [facility] eGFRcr 97.3 mL/min/1.7 3m*2 01/06/2025 9:34 AM EDT [facility] Comment:Reported eGFRcr in m L/min/1.73m2 is based the CKD-EPI 2020 equation that does not use a race coefficient. Blood Venous blood specimen / Unknown Venipuncture / Unknown 01/06/2025 8:49 AM EDT 01/06/2025 9:01 AM EDT us Christina Ramos MD LAB BLOOD ORDERABLES Final Resul t [facility] [address] [place] [address] * (ABNORMAL) CBC and differential (01/06/2025 8:49 AM EDT) WBC Count 0.59(LL) 3.70 - 10.30 10*3/uL LAB HEMATOLOGY METHOD 01/06/2025 11:36 AM EDT [facility] RBC Count 2.95(L) 4.60 - 6.10 10*6/uL LAB HEMATOLOGY METHOD 01/06/2025 11:36 AM EDT [facility] HGB 8.8(L) 13.7 - 17.5 g/dL LAB HEMATOLOGY METHOD 01/06/2025 11:36 AM EDT [facility] HCT 25.3(L) 40.0 - 51.0 % LAB HEMATOLOGY METHOD 01/06/2025 11:36 AM EDT [facility] Platelet Count 75(L) 155 - 369 10*3/uL LAB HEMATOLOGY METHOD 01/06/2025 11:36 AM EDT [facility] MCV 86 79 - 98 fL LAB HEMATOLOGY METHOD 01/06/2025 11:36 AM EDT [facility] MCH 29.8 26.0 - 32.0 pg LAB HEMATOLOGY METHOD 01/06/2025 11:36 AM EDT [facility] MCHC 34.8 30.7 - 35.5 g/dL LAB HEMATOLOGY METHOD 01/06/2025 11:36 AM EDT [facility] RDW 14.6(H) 11.5 - 14.5 % LAB HEMATOLOGY METHOD 01/06/2025 11:36 AM EDT [facility] MPV 10.7 8.8 - 12.5 fL LAB HEMATOLOGY METHOD 01/06/2025 11:36 AM EDT [facility] nRBC 3.4(H) <=0.0 per 100 WBCs LAB HEMATOLOGY METHOD 01/06/2025 11:36 AM EDT [facility] Differential Type Automated LAB HEMATOLOGY METHOD 01/06/2025 11:36 AM EDT [facility] Neutrophils % 5 % LAB HEMATOLOGY METHOD 01/06/2025 11:36 AM EDT [facility] Lymphocytes % 88 % LAB HEMATOLOGY METHOD 01/06/2025 11:36 AM EDT [facility] Monocytes % 7 % LAB HEMATOLOGY METHOD 01/06/2025 11:36 AM EDT [facility] Eosinophils % 0 % LAB HEMATOLOGY METHOD 01/06/2025 11:36 AM EDT [facility] Basophils % 0 % LAB HEMATOLOGY METHOD 01/06/2025 11:36 AM EDT [facility] Immature Granulocytes % 0 % LAB HEMATOLOGY METHOD 01/06/2025 11:36 AM EDT [facility] Neutrophils Absolute 0.03(LL) 1.60 - 6.10 10*3/uL LAB HEMATOLOGY METHOD 01/06/2025 11:36 AM EDT [facility] Lymphocytes Absolute 0.52(L) 1.20 - 3.90 10*3/uL LAB HEMATOLOGY METHOD 01/06/2025 11:36 AM EDT [facility] Monocytes Absolute 0.04(L) 0.30 - 0.90 10*3/uL LAB HEMATOLOGY METHOD 01/06/2025 11:36 AM EDT [facility] Eosinophils Absolute 0.00 0.00 - 0.50 10*3/uL LAB HEMATOLOGY METHOD 01/06/2025 11:36 AM EDT [facility] Basophils Absolute 0.00 0.00 - 0.10 10*3/uL LAB HEMATOLOGY METHOD 01/06/2025 11:36 AM EDT [facility] Immature Granulocytes Absolute 0.00 0.00 - 0.06 10*3/uL LAB HEMATOLOGY METHOD 01/06/2025 11:36 AM EDT [facility] Blood Venous blood specimen / Unknown Venipuncture / Unknown 01/06/2025 8:49 AM EDT 01/06/2025 9:01 AM EDT [facility] - 01/06/2025 11:36 AM EDT Therapeutic decision making should be based on absolute values, rather than percentages. us Christina Ramos MD LAB BLOOD ORDERABLES Final Resul t [facility] [address] [place] [address] * (ABNORMAL) CBC and differential (12/20/2024 9:00 AM EDT) WBC Count 0.59(LL) 3.70 - 10.30 10*3/uL LAB HEMATOLOGY METHOD 12/20/2024 10:25 AM EDT [facility] RBC Count 2.46(L) 4.60 - 6.10 10*6/uL LAB HEMATOLOGY METHOD 12/20/2024 10:25 AM EDT [facility] HGB 7.8(L) 13.7 - 17.5 g/dL LAB HEMATOLOGY METHOD 12/20/2024 10:25 AM EDT [facility] HCT 22.0(L) 40.0 - 51.0 % LAB HEMATOLOGY METHOD 12/20/2024 10:25 AM EDT [facility] Platelet Count 22(L) 155 - 369 10*3/uL LAB HEMATOLOGY METHOD 12/20/2024 10:25 AM EDT [facility] MCV 89 79 - 98 fL LAB HEMATOLOGY METHOD 12/20/2024 10:25 AM EDT [facility] MCH 31.7 26.0 - 32.0 pg LAB HEMATOLOGY METHOD 12/20/2024 10:25 AM EDT [facility] MCHC 35.5 30.7 - 35.5 g/dL LAB HEMATOLOGY METHOD 12/20/2024 10:25 AM EDT [facility] RDW 16.0(H) 11.5 - 14.5 % LAB HEMATOLOGY METHOD 12/20/2024 10:25 AM EDT [facility] MPV 11.3 8.8 - 12.5 fL LAB HEMATOLOGY METHOD 12/20/2024 10:25 AM EDT [facility] nRBC 0.0 <=0.0 per 100 WBCs LAB HEMATOLOGY METHOD 12/20/2024 10:25 AM EDT [facility] Differential Type Automated LAB HEMATOLOGY METHOD 12/20/2024 10:25 AM EDT [facility] Neutrophils % 5 % LAB HEMATOLOGY METHOD 12/20/2024 10:25 AM EDT [facility] Lymphocytes % 92 % LAB HEMATOLOGY METHOD 12/20/2024 10:25 AM EDT [facility] Monocytes % 3 % LAB HEMATOLOGY METHOD 12/20/2024 10:25 AM EDT [facility] Eosinophils % 0 % LAB HEMATOLOGY METHOD 12/20/2024 10:25 AM EDT [facility] Basophils % 0 % LAB HEMATOLOGY METHOD 12/20/2024 10:25 AM EDT [facility] Immature Granulocytes % 0 % LAB HEMATOLOGY METHOD 12/20/2024 10:25 AM EDT [facility] Neutrophils Absolute 0.03(LL) 1.60 - 6.10 10*3/uL LAB HEMATOLOGY METHOD 12/20/2024 10:25 AM EDT [facility] Lymphocytes Absolute 0.54(L) 1.20 - 3.90 10*3/uL LAB HEMATOLOGY METHOD 12/20/2024 10:25 AM EDT [facility] Monocytes Absolute 0.02(L) 0.30 - 0.90 10*3/uL LAB HEMATOLOGY METHOD 12/20/2024 10:25 AM EDT [facility] Eosinophils Absolute 0.00 0.00 - 0.50 10*3/uL LAB HEMATOLOGY METHOD 12/20/2024 10:25 AM EDT [facility] Basophils Absolute 0.00 0.00 - 0.10 10*3/uL LAB HEMATOLOGY METHOD 12/20/2024 10:25 AM EDT [facility] Immature Granulocytes Absolute 0.00 0.00 - 0.06 10*3/uL LAB HEMATOLOGY METHOD 12/20/2024 10:25 AM EDT [facility] Blood Blood sample taken from central line / Unknown (Central Line) Existing Catheter / Unknown 12/20/2024 9:00 AM EDT 12/20/2024 9:13 AM EDT Narrative [facility] - 12/20/2024 10:25 AM EDT Therapeutic decision making should be based on absolute values, rather than percentages. us Christina Ramos MD LAB BLOOD ORDERABLES Final Resul t [facility] [address] [place] [address] * (ABNORMAL) CBC and differential (12/18/2024 9:14 AM EDT) WBC Count 0.51(LL) 3.70 - 10.30 10*3/uL LAB HEMATOLOGY METHOD 12/18/2024 10:49 AM EDT [facility] RBC Count 2.50(L) 4.60 - 6.10 10*6/uL LAB HEMATOLOGY METHOD 12/18/2024 10:49 AM EDT [facility] HGB 8.1(L) 13.7 - 17.5 g/dL LAB HEMATOLOGY METHOD 12/18/2024 10:49 AM EDT [facility] HCT 21.9(L) 40.0 - 51.0 % LAB HEMATOLOGY METHOD 12/18/2024 10:49 AM EDT [facility] Platelet Count 6(LL) 155 - 369 10*3/uL LAB HEMATOLOGY METHOD 12/18/2024 10:49 AM EDT [facility] MCV 88 79 - 98 fL LAB HEMATOLOGY METHOD 12/18/2024 10:49 AM EDT [facility] MCH 32.4(H) 26.0 - 32.0 pg LAB HEMATOLOGY METHOD 12/18/2024 10:49 AM EDT [facility] MCHC 37.0(H) 30.7 - 35.5 g/dL LAB HEMATOLOGY METHOD 12/18/2024 10:49 AM EDT [facility] RDW 16.7(H) 11.5 - 14.5 % LAB HEMATOLOGY METHOD 12/18/2024 10:49 AM EDT [facility] MPV LAB HEMATOLOGY METHOD 12/18/2024 10:49 AM EDT [facility] Comment:Not Measured nRBC 0.0 <=0.0 per 100 WBCs LAB HEMATOLOGY METHOD 12/18/2024 10:49 AM EDT [facility] Differential Type Automated LAB HEMATOLOGY METHOD 12/18/2024 10:49 AM EDT [facility] Neutrophils % 6 % LAB HEMATOLOGY METHOD 12/18/2024 10:49 AM EDT [facility] Lymphocytes % 90 % LAB HEMATOLOGY METHOD 12/18/2024 10:49 AM EDT [facility] Monocytes % 4 % LAB HEMATOLOGY METHOD 12/18/2024 10:49 AM EDT [facility] Eosinophils % 0 % LAB HEMATOLOGY METHOD 12/18/2024 10:49 AM EDT [facility] Basophils % 0 % LAB HEMATOLOGY METHOD 12/18/2024 10:49 AM EDT [facility] Immature Granulocytes % 0 % LAB HEMATOLOGY METHOD 12/18/2024 10:49 AM EDT [facility] Neutrophils Absolute 0.03(LL) 1.60 - 6.10 10*3/uL LAB HEMATOLOGY METHOD 12/18/2024 10:49 AM EDT [facility] Lymphocytes Absolute 0.46(L) 1.20 - 3.90 10*3/uL LAB HEMATOLOGY METHOD 12/18/2024 10:49 AM EDT [facility] Monocytes Absolute 0.02(L) 0.30 - 0.90 10*3/uL LAB HEMATOLOGY METHOD 12/18/2024 10:49 AM EDT [facility] Eosinophils Absolute 0.00 0.00 - 0.50 10*3/uL LAB HEMATOLOGY METHOD 12/18/2024 10:49 AM EDT [facility] Basophils Absolute 0.00 0.00 - 0.10 10*3/uL LAB HEMATOLOGY METHOD 12/18/2024 10:49 AM EDT [facility] Immature Granulocytes Absolute 0.00 0.00 - 0.06 10*3/uL LAB HEMATOLOGY METHOD 12/18/2024 10:49 AM EDT [facility] Blood Blood sample taken from central line / Unknown Venipuncture / Unknown 12/18/2024 9:14 AM EDT 12/18/2024 9:20 AM EDT Narrative [facility] - 12/18/2024 10:49 AM EDT Therapeutic decision making should be based on absolute values, rather than percentages. us Christina Ramos MD LAB BLOOD ORDERABLES Final Resul t [facility] [address] [place] [address] documented in this encounter Visit Diagnoses Diagnosis [...] documented as of this encounter Care Teams Animal Maintenance Supervisor Relationship Specialty Start Date End Date Zhao Harris MD [address] [place] [address] PCP - General 12/03/20 documented as of this encounter
--- OUTSIDE RECORDS SUMMARY | 2025-01-26 08:34 | XMS_ITS | Encounter Summary ---
Author Organization [facility] Address [address] [place] [address] Care Team Providers Care Personal Health Coach Name Role Phone Zhao Harris MD Primary Care Provider [phone] Encounter Details Date Type Department Care Team [...] drink first t manav in the morning (EYE-GEAR HOBBER SET UP OPERATOR) to steady your nerves or to [...] Encounters Date Type Department Care Team ([facility] Contact Info) Description 02/02/2025 11:00 AM EDT Appointment PAV A Interventional Radiology [address] [place] [address] 02/10/2025 8:30 AM EDT Clinical Support P[facility] CC Hematology/BMT and Cellular Therapy Program [address] [place] [address] [place] [address] 02/10/2025 9:00 AM EDT Office Visit [facility] CC Hematology/BMT and Cellular Therapy Program [address] [place] [address] Elaina Boss, PA 800 [facility] [address] [place] [address] 02/10/2025 10:30 AM EDT Appointment [facility] 1 744 [place] [address] 02/11/2025 2:00 PM EDT Appointment [facility] 1 744 [place] [address] 02/12/2025 2:00 PM EDT Appointment [facility] 1 744 [place] [address] 02/13/2025 2:00 PM EDT Appointment [facility] 1 744 [place] [address] 02/14/2025 2:00 PM EDT Appointment [facility] 1 4 [place] [address] 03/10/2025 8:30 AM EDT Clinical Support [facility] CC Hematology/BMT and Cellular Therapy Program [address] [place] [address] [place] [address] 03/10/2025 9:00 AM EDT Office Visit [facility] CC Hematology/BMT and Cellular Therapy Program [address] [place] [address] [place] [address] Isaura Wynn, COTTON PICKING MACHINE OPERATOR 800 [facility] [address]st [place] [address] 03/10/2025 11:20 AM EDT Office Visit Pav CC Head, Neck & Respiratory 800 [facility], 2nd [place] [address] Elsa Razo, COTTON PICKING MACHINE OPERATOR 800 [place] [address] documented as of this encounter Visit Diagnoses [...] as of this encounter Care Teams Personal Health Coach Relationship Specialty Start Date End Date Zhao Harris MD 1210 [facility] [address] [place] [phone] PCP - General 12/03/20 documented as of this encounter
--- OUTSIDE RECORDS SUMMARY | 2025-01-26 08:34 | XMS_ITS | Encounter Summary ---
Author Organization [facility] Address [address] [place] [address] Care Team Providers Care Triage Rn Name Role Phone Zhao Harris MD Primary Care Provider [phone] Reason for Visit * Reason Comments Med Refill Encounter Details Date Type Department Care Team (Late st Contact Info) Description 06/19/2023 Refill [facility] [place] [facility] 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, unspecified vessel [...] Appointment PAV A Interventional Radiology [address] [place] [address] 02/10/2025 8:30 AM EDT Clinical Support P[facility] CC Hematology/BMT and Cellular Therapy Program [address] [place] [address] 02/10/2025 9:00 AM EDT Office Visit PAV Hematology/BMT and Cellular Therapy Program [address] [place] [address] Elaina Boss, PA 800 [facility] [address] [place] [address] 02/10/2025 10:30 AM EDT Appointment [facility] 1 744 [place] [address] 02/11/2025 2:00 PM EDT Appointment [facility] 1 [address] [place] [address] 02/12/2025 2:00 PM EDT Appointment [facility] 1 [address] [place] [address] 02/13/2025 2:00 PM EDT Appointment [facility] 1 [address] [place] [address] 02/14/2025 2:00 PM EDT Appointment [facility] 1 [address] [place] [address] 03/10/2025 8:30 AM EDT Clinical Support PAV Hematology/BMT and Cellular Therapy Program [address] [place] [address] 03/10/2025 9:00 AM EDT Office Visit PAV Hematology/BMT and Cellular Therapy Program [address] [place] [address] Isaura Wynn, ESTRELLA 800 [facility] [address] [place] [phone] 03/10/2025 11:20 AM EDT Office Visit Pav Head, Neck & Respiratory 800 [facility], 2nd [place] [address] Elsa Razo, DECORATOR STREET AND BUILDING [address] [place] [address] documented as of this encounter Visit Diagnoses Diagnosis Hypertension, unspecified type 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
--- OUTSIDE RECORDS SUMMARY | 2025-01-26 08:34 | XMS_ITS | Encounter Summary ---
Author Organization [facility] Address [address] [place] [address] Care Team Providers Care Founder And President Name Role Phone Zhao Harris MD Primary Care Provider [phone] Encounter Details Date Type Department Care Team [...] first t manav in the morning (EYE-IRON INSTALLER) to steady your nerves or to [...] Upcoming Encounters Date Type Department Care Team ([facility] Contact Info) Description 02/02/2025 11:00 AM EDT Appointment PAV A Interventional Radiology [address] [place] [address] 02/10/2025 8:30 AM EDT Clinical Support P[facility] CC Hematology/BMT and Cellular Therapy Program [address] [place] [address] [place] [address] 02/10/2025 9:00 AM EDT Office Visit [facility] CC Hematology/BMT and Cellular Therapy Program [address] [place] [address] Elaina Boss, PA 800 [facility] [address] [place] [address] 02/10/2025 10:30 AM EDT Appointment [facility] 1 744 [place] [address] 02/11/2025 2:00 PM EDT Appointment [facility] 1 744 [place] [address] 02/12/2025 2:00 PM EDT Appointment [facility] 1 744 [place] [address] 02/13/2025 2:00 PM EDT Appointment [facility] 1 [address] [place] [address] 02/14/2025 2:00 PM EDT Appointment [facility] 1 4 [place] [address] 03/10/2025 8:30 AM EDT Clinical Support [facility] Hematology/BMT and Cellular Therapy Program [address] [place] [address] [place] [address] 03/10/2025 9:00 AM EDT Office Visit [facility] CC Hematology/BMT and Cellular Therapy Program [address] [place] [address] [address] [address] Isaura Wynn, LEAD FRONT DESK AGENT 800 [facility] 1st [place] [address] 03/10/2025 11:20 AM EDT Office Visit Pav CC Head, Neck & Respiratory 800 [facility], 2nd [place] [address] Elsa Razo, LEAD FRONT DESK AGENT 800 [place] [address] documented as of this encounter Visit Diagnoses [...] documented as of this encounter Care Teams Founder And President Relationship Specialty Start Date End Date Zhao Harris MD 1210 [facility] [address] [place] [phone] PCP - General 12/03/20 documented as of this encounter
--- OUTSIDE RECORDS SUMMARY | 2025-01-26 08:34 | XMS_ITS | Encounter Summary ---
Author Organization [facility] Address [address] [place] [address] Care Team Providers Care Annual Greenhouse Manager Name Role Phone Zhao Harris MD Primary Care Provider [phone] Encounter Details Date Type Department Care Team ([facility] st Contact Info) Description 01/12/2025 Telephone [facility] CC Hematology/BMT and Cellular Therapy Program [address] [address] Virgen Vargas MD 800 [facility] 1st [place] [address] Social History Tobacco Use Types Packs/Day Years [...] drink first t manav in the morning (EYE-TAXI DRIVER SUPERVISOR) to steady your nerves or to [...] Wanting tospeak to Dr. Vargas Callback number: [phone] Personal number documented in this encounter Plan of Treatment Upcoming Encounters Date Type Department Care Team ([facility] st Contact Info) Description 02/02/2025 11:00 AM EDT Appointment PAV A Interventional Radiology [address] [place] [address] 02/10/2025 8:30 AM EDT Clinical Support [facility] CC Hematology/BMT and Cellular Therapy Program [address] [place] [address] 02/10/2025 9:00 AM EDT Office Visit PAV Hematology/BMT and Cellular Therapy Program [address] [place] [address] Elaina Boss PA 800 [facility] [address] [place] [address] 02/10/2025 10:30 AM EDT Appointment [facility] 1 744 [place] [address] 02/11/2025 2:00 PM EDT Appointment [facility] 1 744 [place] [address] 02/12/2025 2:00 PM EDT Appointment [facility] 1 744 [place] [address] 02/13/2025 2:00 PM EDT Appointment [facility] 1 [address] [place] [address] 02/14/2025 2:00 PM EDT Appointment [facility] 1 744 [place] [address] 03/10/2025 8:30 AM EDT Clinical Support [facility] Hematology/BMT and Cellular Therapy Program [address] [address] 03/10/2025 9:00 AM EDT Office Visit [facility] CC Hematology/BMT and Cellular Therapy Program [address] [address] Isaura Wynn, MIND READER 800 [facility] [address] [place] [phone] 03/10/2025 11:20 AM EDT Office Visit Pav CC Head, Neck & Respiratory 800 [facility], 2nd [place] [address] Elsa Razo, MIND READER 800 [place] [phone] documented as of this encounter Visit Diagnoses [...] documented as of this encounter Care Teams Annual Greenhouse Manager Relationship Specialty Start Date End Date Zhao Harris MD 1210 [place] [address] PCP - General 12/03/20 documented as of this encounter
--- OUTSIDE RECORDS SUMMARY | 2025-01-26 08:34 | XMS_ITS | Encounter Summary ---
Author Organization [facility] Address [address] [place] [address] Care Team Providers Care Manager Retail Store Name Role Phone Zhao Harris MD Primary Care Provider [phone] Encounter Details Date Type Department Care Team [...] first t manav in the morning (EYE-INSURANCE COUNSEL) to steady your nerves or to get [...] Date Type Department Care Team ([facility] Contact Info) Description 02/02/2025 11:00 AM EDT Appointment PAV A Interventional Radiology [address] [place] [address] 02/10/2025 8:30 AM EDT Clinical Support P[facility] CC Hematology/BMT and Cellular Therapy Program [address] [place] [address] [place] [address] 02/10/2025 9:00 AM EDT Office Visit P[facility] CC Hematology/BMT and Cellular Therapy Program [address] [place] [address] Elaina Boss, PA 800 [facility] [address] [place] [address] 02/10/2025 10:30 AM EDT Appointment [facility] 1 744 [place] [address] 02/11/2025 2:00 PM EDT Appointment [facility]fusion [facility] 1 744 [place] [address] 02/12/2025 2:00 PM EDT Appointment [facility]fusion [facility] 1 7[address] [place] [address] 02/13/2025 2:00 PM EDT Appointment [facility] 1 7[address] [place] [address] 02/14/2025 2:00 PM EDT Appointment [facility] Infusion [facility] 1 4 [place] [address] 03/10/2025 8:30 AM EDT Clinical Support P[facility] CC Hematology/BMT and Cellular Therapy Program [address] [place] [address] [place] [address] 03/10/2025 9:00 AM EDT Office Visit P[facility] CC Hematology/BMT and Cellular Therapy Program [address] [place] [address] [place] [address] Isaura Wynn, CHICK GRADER 800 [facility] 1st [place] [address] 03/10/2025 11:20 AM EDT Office Visit Pav CC Head, Neck & Respiratory 800 [facility], 2nd [place] [address] Elsa Razo, CHICK GRADER 800 [place] [address] documented as of this encounter Visit Diagnoses [...] as of this encounter Care Teams Manager Retail Store Relationship Specialty Start Date End Date Zhao Harris MD 1210 [facility] [address] [place] [phone] PCP - General 12/03/20 documented as of this encounter
--- OUTSIDE RECORDS SUMMARY | 2025-01-26 08:34 | XMS_ITS | Encounter Summary ---
Author Organization [facility] Address [address] [place] [address] Care Team Providers Care Dramatic Agent Name Role Phone Zhao Harris MD Primary Care Provider [phone] Encounter Details Date Type Department Care Team [...] first t manav in the morning (EYE-SUPERVISOR CORDUROY CUTTING) to steady your nerves or to get [...] Encounters Date Type Department Care Team ([facility] Contact Info) Description 02/02/2025 11:00 AM EDT Appointment PAV A Interventional Radiology [address] [place] [address] 02/10/2025 8:30 AM EDT Clinical Support P[facility] CC Hematology/BMT and Cellular Therapy Program [address] [place] [address] [place] [address] 02/10/2025 9:00 AM EDT Office Visit P[facility] CC Hematology/BMT and Cellular Therapy Program [address] [place] [address] Elaina Boss, PA 800 [facility] [address] [place] [address] 02/10/2025 10:30 AM EDT Appointment [facility] 1 744 [place] [address] 02/11/2025 2:00 PM EDT Appointment [facility] Infusion [facility] 1 744 [place] [address] 02/12/2025 2:00 PM EDT Appointment [facility] Infusion [facility] 1 744 [place] [address] 02/13/2025 2:00 PM EDT Appointment [facility] Infusion [facility] 1 744 [place] [address] 02/14/2025 2:00 PM EDT Appointment [facility] Infusion [facility] 1 4 [place] [address] 03/10/2025 8:30 AM EDT Clinical Support P[facility] CC Hematology/BMT and Cellular Therapy Program [address] [place] [address] [place] [address] 03/10/2025 9:00 AM EDT Office Visit P[facility] CC Hematology/BMT and Cellular Therapy Program [address] [place] [address] [place] [address] Isaura Wynn, BACK SEWER 800 [facility] 1st [place] [address] 03/10/2025 11:20 AM EDT Office Visit Pav CC Head, Neck & Respiratory 800 [facility], 2nd [place] [address] Elsa Razo, BACK SEWER 800 [place] [address] documented as of this encounter Visit Diagnoses [...] documented as of this encounter Care Teams Dramatic Agent Relationship Specialty Start Date End Date Zhao Harris MD 1210 [facility] [address] [place] [phone] PCP - General 12/03/20 documented as of this encounter
[2025-01-26 08:35] LABS: Hematocrit 21.1 % (42.0-52.0); Hemoglobin 7.4 g/dL (14.1-18.0); Immature Granulocytes % 0 %; Mean Corpuscular HGB Conc 35.1 g/dL (31.8-35.4); Mean Corpuscular Hemoglobin 29.1 pg (27.0-31.2); Mean Corpuscular Volume 83.1 fl (80-94); Nucleated Red Blood Cells % 0 %; Red Blood Count 2.54 M/mm3 (4.60-6.20); Red Cell Distribution Width-SD 39.9 fL
--- OUTSIDE RECORDS SUMMARY | 2025-01-26 08:35 | XMS_ITS | Encounter Summary ---
Author Organization [facility] Address [address] [place] [address] Care Team Providers Care Chief Operator Hydroformer Name Role Phone Zhao Harris MD Primary Care Provider [phone] Reason for Visit * Reason Comments Med Refill Encounter Details Date Type Department Care Team ([facility] Contact Info) Description 02/20/2022 Refill [facility] [place] [address] [facility], [address] [place] [address] Regina Hill, ARAM 800 [place] [address] Social History Tobacco Use Types [...] ([facility] Contact Info) Description 02/02/2025 11:00 AM EDT Appointment PAV A Interventional Radiology [address] [place] [address] 02/10/2025 8:30 AM EDT Clinical Support P[facility] CC Hematology/BMT and Cellular Therapy Program [address] [place] [address] 02/10/2025 9:00 AM EDT Office Visit P[facility] CC Hematology/BMT and Cellular Therapy Program [address] [place] [address] Elaina Boss, PA 800 [facility] [address] [address] 02/10/2025 10:30 AM EDT Appointment [facility] 1 [address] [place] [address] 02/11/2025 2:00 PM EDT Appointment [facility] 1 [address] [place] [address] 02/12/2025 2:00 PM EDT Appointment [facility] 1 [address] [place] [address] 02/13/2025 2:00 PM EDT Appointment [facility] 1 [address] [place] [address] 02/14/2025 2:00 PM EDT Appointment [facility] 1 [address] [place] [address] 03/10/2025 8:30 AM EDT Clinical Support P[facility] CC Hematology/BMT and Cellular Therapy Program [address] [phone] 03/10/2025 9:00 AM EDT Office Visit P[facility] CC Hematology/BMT and Cellular Therapy Program [address] [phone] Isaura Wynn, EMBEDDED SOFTWARE DESIGN ENGINEER 800 [facility] [address] [phone] 03/10/2025 11:20 AM EDT Office Visit Pav CC Head, Neck & Respiratory 800 [facility], 2nd [place] [address] Elsa Razo, EMBEDDED SOFTWARE DESIGN ENGINEER 800 [place] [address] documented as of this encounter Visit Diagnoses Not on filedocumented in this encounter Additional Health Concerns Infection Onset Date Last Indicated Resolved Time Respiratory Rule-Out 11/03/2024 11/03/2024 025 5:17 PM EDT documented as of this encounter Care Teams Chief Operator Hydroformer Relationship Specialty Start Date End Date Zhao Harris MD [address] [place] [address] PCP - General 12/03/20 documented as of this encounter
--- OUTSIDE RECORDS SUMMARY | 2025-01-26 08:35 | XMS_ITS | Encounter Summary ---
Author Organization [facility] Address [address] [place] [address] Care Team Providers Care Supervisor Plastic Sheets Name Role Phone Zhao Harris MD Primary Care Provider [phone] Encounter Details Date Type Department Care Team [...] first t manav in the morning (EYE-BAKERY TEAM LEADER) to steady your nerves or to get [...] Upcoming Encounters Date Type Department Care Team ([facility] Contact Info) Description 02/02/2025 11:00 AM EDT Appointment PAV A Interventional Radiology [address] [place] [address] 02/10/2025 8:30 AM EDT Clinical Support P[facility] CC Hematology/BMT and Cellular Therapy Program [address] [place] [address] [place] [address] 02/10/2025 9:00 AM EDT Office Visit P[facility] CC Hematology/BMT and Cellular Therapy Program [address] [place] [address] Elaina Boss, PA 800 [facility] [address] [place] [address] 02/10/2025 10:30 AM EDT Appointment [facility] 1 744 [place] [address] 02/11/2025 2:00 PM EDT Appointment [facility] 1 [address] [place] [address] 02/12/2025 2:00 PM EDT Appointment [facility] 1 [address] [place] [address] 02/13/2025 2:00 PM EDT Appointment [facility] 1 [address] [place] [address] 02/14/2025 2:00 PM EDT Appointment [facility] 1 4 [place] [address] 03/10/2025 8:30 AM EDT Clinical Support P[facility] CC Hematology/BMT and Cellular Therapy Program [address] [place] [address] [place] [address] 03/10/2025 9:00 AM EDT Office Visit P[facility] CC Hematology/BMT and Cellular Therapy Program [address] [place] [address] [place] [address] Isaura Wynn, MERCHANDISE DISPLAYER 800 [facility] 1st [place] [address] 03/10/2025 11:20 AM EDT Office Visit Pav CC Head, Neck & Respiratory 800 [facility], 2nd [place] [address] Elsa Razo, MERCHANDISE DISPLAYER 800 [place] [address] documented as of this encounter Visit Diagnoses [...] as of this encounter Care Teams Supervisor Plastic Sheets Relationship Specialty Start Date End Date Zhao Harris MD 1210 [facility] [address] [place] [address] PCP - General 12/03/20 documented as of this encounter
--- OUTSIDE RECORDS SUMMARY | 2025-01-26 08:35 | XMS_ITS | Encounter Summary ---
Author Organization [facility] Address [address] [place] [address] Care Team Providers Care Quartz Miner Name Role Phone Zhao Harris MD Primary Care Provider [phone] Reason for Visit * Reason Comments Med Refill Encounter Details Date Type Department Care Team (Late st Contact Info) Description 01/18/2022 Refill [facility] [place] [address] [facility], [address] [place] [address] Regina Hill, PA 800 [place] [address] Hypertension, unspecified type Social History [...] Appointment PAV A Interventional Radiology [address] [place] [address] 02/10/2025 8:30 AM EDT Clinical Support PAV CC Hematology/BMT and Cellular Therapy Program 750 [facility], [address] [place] [place] [address] 02/10/2025 9:00 AM EDT Office Visit P[facility] CC Hematology/BMT and Cellular Therapy Program [address] [place] [address] Elaina Boss, ARAM [address] [address] 02/10/2025 10:30 AM EDT Appointment [facility] 1 744 [place] [address] 02/11/2025 2:00 PM EDT Appointment [facility] 1 [address] [place] [address] 02/12/2025 2:00 PM EDT Appointment [facility] 1 [address] [place] [address] 02/13/2025 2:00 PM EDT Appointment [facility] 1 [address] [place] [address] 02/14/2025 2:00 PM EDT Appointment [facility] 1 [address] [place] [address] 03/10/2025 8:30 AM EDT Clinical Support PAV Hematology/BMT and Cellular Therapy Program [address] [phone] 03/10/2025 9:00 AM EDT Office Visit PAV Hematology/BMT and Cellular Therapy Program [address] [phone] Isaura Wynn, RURAL SOCIOLOGIST 800 [facility] [address] [phone] 03/10/2025 11:20 AM EDT Office Visit Pav Head, Neck & Respiratory 800 [facility], 2nd [place] [address] Elsa Razo, RURAL SOCIOLOGIST 800 [place] [address] documented as of this encounter Visit Diagnoses Diagnosis Hypertension, unspecified type documented in this encounter Additional Health Concerns Infection Onset Date Last Indicated Resolved Time Respiratory Rule-Out 11/03/2024 11/03/2024 025 5:17 PM EDT documented as of this encounter Care Teams Quartz Miner Relationship Specialty Start Date End Date Zhao Harris MD 1210 [place] [address] PCP - General 12/03/20 documented as of this encounter
--- OUTSIDE RECORDS SUMMARY | 2025-01-26 08:35 | XMS_ITS | Encounter Summary ---
Author Organization [facility] Address [address] [place] [address] Care Team Providers Care Equity Holder Name Role Phone Zhao Harris MD Primary Care Provider [phone] Encounter Details Date Type Department Care Team (Late st Contact Info) Description 10/15/2024 Lab Requisition [facility] H Lab [address] [place] [address] Virgen Vargas MD 800 [facility] [address] [place] [phone] Abnormal finding of blood chemistry, unspecified Social [...] Appointment [facility] A Interventional Radiology [address] [place] [phone] 02/10/2025 8:30 AM EDT Clinical Support [facility] CC Hematology/BMT and Cellular Therapy Program [address] [address] 02/10/2025 9:00 AM EDT Office Visit [facility] Hematology/BMT and Cellular Therapy Program [address] [address] Elaina Boss, [place] 800 [facility] [address] [place] [phone] 02/10/2025 10:30 AM EDT Appointment [facility] In[facility] 1 [address] [place] [address] 02/11/2025 2:00 PM EDT Appointment [facility] 1 [address] [place] [address] 02/12/2025 2:00 PM EDT Appointment [facility] 1 [address] [place] [address] 02/13/2025 2:00 PM EDT Appointment [facility] 1 [address] [place] [address] 02/14/2025 2:00 PM EDT Appointment [facility] 1 [address] [place] [address] 03/10/2025 8:30 AM EDT Clinical Support [facility] CC Hematology/BMT and Cellular Therapy Program [address] [place] [address] 03/10/2025 9:00 AM EDT Office Visit [facility] Hematology/BMT and Cellular Therapy Program [address] [place] [address] Isaura Wynn, ESTRELLA 800 [facility] [address] [phone] 03/10/2025 11:20 AM EDT Office Visit [facility] CC Head, Neck & Respiratory [address] [place] [address] Elsa Razo, LINOTYPIST [address] [place] [address] documented as of this encounter Procedures Procedure Name Priority Date/Time Associated Diagnosis Comments BONE MARROW EXAM CONSULT Routine 10/15/2024 1:27 PM EDT Abnormal finding of blood chemistry, unspecified documented in this encounter Results * Bone marrow exam consult (10/15/2024 1:27 PM EDT) Case Report Bone Marrow Case: [id number] Authorizing Provider: Virgen Vargas MD Collected: 10/15/2024 1327 Ordering Location: [facility] Lab Received: 10/15/2024 1327 Pathologist: Martha Lopez MD Specimen: Bone Marrow Aspirate, [id number] 10/16/2024 2:02 PM EDT [facility] Final Diagnosis A. 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 10/16/2024 2:02 PM EDT [facility] at 1402 EDT Comment Findings are those of MDS with increased blasts type 2 (MDS-IB-2) in the WHO 5th edition and MDS/AML in the International Consensus Classification. 10/16/2024 2:02 PM EDT [facility] Clinical Information R79.9 - Abnormal finding of blood chemistry, unspecified [ICD-10-CM] 10/16/2024 2:02 PM EDT [facility] CBC and Differential PERIPHERAL BLOOD: [...] Granulocytes % 0 10/16/2024 2:02 PM EDT [facility] Bone Marrow Differential BONE MARROW DIFFERENTIAL: 200 cells Normal Patient Neutrophils 15-50 22 Metamyelocytes 4-19 3 Myelocytes 1-18 11 Promyelocytes 1-8 1 Blasts 0-2 13 Monocytes 0-5 4 Erythroid 16-38 41 Lymphocytes 3-24 4 Eosinophils 0-6 1 Basophils 0-2 0 Plasma cells 0-4 0 Other 10/16/2024 2:02 PM EDT [facility] Bone Marrow Aspirate and Biopsy [...] trabeculae are unremarkable. 10/16/2024 2:02 PM EDT [facility] Flow Cytometry Interpretation Outside flow cytometry showed 17% myeloblasts expressing CD34, CD117, partial CD 38, partial CD7, HLA-DR, CD13 and variable CD33. 10/16/2024 2:02 PM EDT [facility] CYTOGENETICS/MOL ECULAR INTERPRETATION Cytogenetic analysis showed normal male karyotype. No FLT3 duplication or mutation was identified, and no NPM1 mutation was identified. 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 10/16/2024 2:02 PM EDT [facility] Gross Description A. [id number] Received along with a corresponding pathology report from Pathology & Cytology Laboratory are 12 slides labeled outside case: [id number] collected on 09/19/2024. 10/16/2024 2:02 PM EDT [facility] Bone Marrow Specimen from bone marrow obtained by aspiration / Unknown 10/15/2024 1:27 PM EDT 10/15/2024 1:27 PM EDT us Virgen Vargas MD LAB PATHOLOGY ORDERABLES Terri lara Result [facility] [address] [place] [address] documented in this encounter Visit Diagnoses Diagnosis [...] documented as of this encounter Care Teams Equity Holder Relationship Specialty Start Date End Date Zhao Harris MD [address] [place] [address] PCP - General 12/03/20 documented as of this encounter
--- OUTSIDE RECORDS SUMMARY | 2025-01-26 08:35 | XMS_ITS | Encounter Summary ---
Author Organization [facility] Address [address] [place] [address] Care Team Providers Care Intensive Care Ambulance Paramedic Name Role Phone Zhao Harris MD Primary Care Provider [phone] Encounter Details Date Type Department Care Team ([facility] st Contact Info) Description 01/22/2025 Telephone [facility] CC Hematology/BMT and Cellular Therapy Program [address] [phone] Virgen Vargas MD 800 [facility] [address] [place] [address] Social History Tobacco Use Types Packs/Day Years [...] first t manav in the morning (EYE-INTERACTIVE WEB DEVELOPER) to steady your nerves or to [...] Telephone Encounter - Maia Kaplan RN - 01/22/2025 4:12 PM EDT Information faxed as requested * Telephone Encounter - Misty Patel - 01/22/2025 3:50 PM EDT Callback number: [phone] [facility] calling to obtain patient's insurance information documented in this encounter Plan of Treatment Upcoming Encounters Date Type Department Care Team ([facility] Contact Info) Description 02/02/2025 11:00 AM EDT Appointment [facility] A Interventional Radiology [address] [place] [address] 02/10/2025 8:30 AM EDT Clinical Support [facility] Hematology/BMT and Cellular Therapy Program [address] [address] 02/10/2025 9:00 AM EDT Office Visit [facility] Hematology/BMT and Cellular Therapy Program [address] [address] Elaina Boss PA 800 [facility] [address] [place] [phone] 02/10/2025 10:30 AM EDT Appointment [facility] 1 [address] [place] [address] 02/11/2025 2:00 PM EDT Appointment [facility] 1 [address] [place] [address] 02/12/2025 2:00 PM EDT Appointment [facility] 1 [address] [place] [address] 02/13/2025 2:00 PM EDT Appointment [facility] 1 [address] [place] [address] 02/14/2025 2:00 PM EDT Appointment [facility] 1 [address] [place] [address] 03/10/2025 8:30 AM EDT Clinical Support [facility] CC Hematology/BMT and Cellular Therapy Program [address] [place] [phone] 03/10/2025 9:00 AM EDT Office Visit [facility] Hematology/BMT and Cellular Therapy Program [address] [address] Isaura Wynn, ROCK WOOL INSULATOR 800 [facility] [address] [address] 03/10/2025 11:20 AM EDT Office Visit [facility] CC Head, Neck & Respiratory 800 [facility], [address] [place] [address] Elsa Razo, ROCK WOOL INSULATOR [address] [place] [address] documented as of this encounter Visit Diagnoses [...] documented as of this encounter Care Teams Intensive Care Ambulance Paramedic Relationship Specialty Start Date End Date Zhao Harris MD [address] [facility] [address] [place] [address] PCP - General 12/03/20 documented as of this encounter
--- OUTSIDE RECORDS SUMMARY | 2025-01-26 08:35 | XMS_ITS | Encounter Summary ---
Author Organization [facility] Address [address] [place] [address] Care Team Providers Care Stamp Collector Name Role Phone Zhao Harris MD Primary Care Provider [phone] Reason for Visit * Reason Onset Date Comments Distress Screen Follow-up 11/25/2024 Encounter Details Date Type Department Care Team (Late st Contact Info) Description 11/25/2024 Telephone [facility] Hematology/BMT and Cellular Therapy Program [address] [place] [address] [place] [address] Michelle Mast Distress Screen Follow-up Social History [...] drink first t manav in the morning (EYE-MIGRATION SPECIALIST) to steady your nerves or to [...] Appointment [facility] A Interventional Radiology [address] [place] [address] 02/10/2025 8:30 AM EDT Clinical Support [facility] Hematology/BMT and Cellular Therapy Program [address] [place] [phone] 02/10/2025 9:00 AM EDT Office Visit [facility] Hematology/BMT and Cellular Therapy Program [address] [phone] Elaina Boss PA 800 [facility] [address] [place] [phone] 02/10/2025 10:30 AM EDT Appointment [facility]fusion [facility] 1 [address] [place] [address] 02/11/2025 2:00 PM EDT Appointment [facility] 1 [address] [place] [address] 02/12/2025 2:00 PM EDT Appointment [facility] 1 [address] [place] [address] 02/13/2025 2:00 PM EDT Appointment [facility] 1 [address] [place] [address] 02/14/2025 2:00 PM EDT Appointment [facility] 1 [address] [place] [address] 03/10/2025 8:30 AM EDT Clinical Support [facility] CC Hematology/BMT and Cellular Therapy Program [address] [address] 03/10/2025 9:00 AM EDT Office Visit [facility] CC Hematology/BMT and Cellular Therapy Program [address] [address] Isaura Wynn, PARACHUTIST/COMBATANT DIVER QUALIFIED 800 [facility] [address] [place] [phone] 03/10/2025 11:20 AM EDT Office Visit [facility] CC Head, Neck & Respiratory 800 [facility], [address] [place] [address] Elsa Razo, PARACHUTIST/COMBATANT DIVER QUALIFIED [address] [place] [phone] documented as of this encounter Visit Diagnoses [...] documented as of this encounter Care Teams Stamp Collector Relationship Specialty Start Date End Date Zhao Harris MD 12[address] [facility] [address] [place] [address] PCP - General 12/03/20 documented as of this encounter
--- OUTSIDE RECORDS SUMMARY | 2025-01-26 08:35 | XMS_ITS | Clinical Summary ---
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, unspecified vessel or [...] 30 tablet 3 5 Active HYDROcodone-shalom taminophen ([place]) 5-325 MG tablet Take 1 tablet by [...] Encounters Date Type Department Care Team Description 01/22/2025 Telephone [facility] Hematology/BMT and Cellular Therapy Program [address] [facility], [facility] [place] [address] Virgen Vargas MD 01/20/2025 Telephone [facility] Hematology/BMT and Cellular Therapy Program [address] [facility], [address] [place] [address] [place] [address] Elaina Boss PA 01/17/2025 7:45 AM EDT - 01/17/2025 11:59 PM EDT Hospital Encounter [facility] Infusion [address] [place] [address] Myelodysplasia (myelodysplastic syndrome) (CMS/HCC) (Primary Dx); Thrombocytopenia (CMS/HCC) Discharge Disposition: Home or Self Care 01/17/2025 Travel 01/16/2025 7:55 AM EDT - 01/16/2025 11:59 PM EDT Hospital Encounter [facility] [address] [place] [address] Myelodysplasia (myelodysplastic syndrome) (CMS/HCC) (Primary Dx) Discharge Disposition: Home or Self Care 01/16/2025 Travel 01/15/2025 9:58 AM EDT - 01/15/2025 11:59 PM EDT Hospital Encounter [facility] [address] [place] [address] Discharge Disposition: Home or Self Care 01/15/2025 8:11 AM EDT - 01/15/2025 9:57 AM EDT Hospital Encounter [facility]fusion [address] [place] [address] Myelodysplasia (myelodysplastic syndrome) (CMS/HCC) (Primary Dx); Thrombocytopenia (CMS/HCC) Discharge Disposition: Home or Self Care 01/15/2025 Travel 01/14/2025 8:07 AM EDT - 01/14/2025 11:59 PM EDT Hospital Encounter [facility] 1 [address] [place] [address] Myelodysplasia (myelodysplastic syndrome) (CMS/HCC) (Primary Dx) Discharge Disposition: Home or Self Care 01/14/2025 Travel 01/13/2025 11:30 AM EDT - 01/13/2025 11:59 PM EDT Hospital Encounter [facility]fusion [address] [place] [address] Myelodysplasia (myelodysplastic syndrome) (CMS/HCC) (Primary Dx); Thrombocytopenia (CMS/HCC) Discharge Disposition: Home or Self Care 01/13/2025 10:00 AM EDT Office Visit [facility] Hematology/BMT and Cellular Therapy Program [address] [phone] Isaura Wynn APRN Myelodysplasia (myelodysplastic syndrome) (CMS/HCC) (Primary Dx) 01/13/2025 9:30 AM EDT Clinical Support [facility] Hematology/BMT and Cellular Therapy Program [address] [address] 01/13/2025 Travel 01/12/2025 Telephone [facility] Hematology/BMT and Cellular Therapy Program [address] [phone] Virgen Vargas MD 01/06/2025 9:00 AM EDT Procedure Visit [facility] Hematology/BMT and Cellular Therapy Program [address] [phone] Kierra Novak APRN Myelodysplasia (myelodysplastic syndrome) (CMS/HCC) 01/06/2025 8:30 AM EDT Clinical Support [facility] Hematology/BMT and Cellular Therapy Program [address] [phone] Nate Ponce RN 01/06/2025 Travel 01/05/2025 Travel 01/01/2025 [facility] [place] [facility] [address] [facility]. [address] [place] [address] Ra Best MD 12/23/2024 Orders Only [facility] Hematology/BMT and Cellular Therapy Program [address] [place] [address] Adam Conway, RN Myelodysplasia (myelodysplastic syndrome) (CMS/HCC) (Primary Dx) 12/22/2024 9:58 AM EDT - 12/22/2024 11:59 PM EDT Hospital Encounter [facility] [address] [place] [address] Myelodysplasia (myelodysplastic syndrome) (CMS/HCC) (Primary Dx) Discharge Disposition: Home or Self Care 12/22/2024 8:24 AM EDT - 12/22/2024 9:57 AM EDT Hospital Encounter [facility] [address] [place] [address] Myelodysplasia (myelodysplastic syndrome) (CMS/HCC) (Primary Dx); Thrombocytopenia (CMS/HCC) Discharge Disposition: Home or Self Care 12/22/2024 Travel 12/21/2024 8:30 AM EDT - 12/21/2024 11:59 PM EDT Hospital Encounter [facility] 1 [address] [place] [address] Myelodysplasia (myelodysplastic syndrome) (CMS/HCC) (Primary Dx) Discharge Disposition: Home or Self Care 12/21/2024 Travel 12/20/2024 8:08 AM EDT - 12/20/2024 11:59 PM EDT Hospital Encounter [facility] 1 [address] [place] [address] Myelodysplasia (myelodysplastic syndrome) (CMS/HCC) (Primary Dx); Thrombocytopenia (CMS/HCC); SOB (shortness of breath) Discharge Disposition: Home or Self Care 12/20/2024 Travel 12/19/2024 8:30 AM EDT - 12/19/2024 11:59 PM EDT Hospital Encounter [facility] 2 [address] [place] [address] Myelodysplasia (myelodysplastic syndrome) (CMS/HCC) (Primary Dx) Discharge Disposition: Home or Self Care 12/19/2024 Travel 12/18/2024 9:46 AM EDT - 12/18/2024 11:59 PM EDT Hospital Encounter [facility] [address] [place] [address] Myelodysplasia (myelodysplastic syndrome) (CMS/HCC) (Primary Dx) Discharge Disposition: Home or Self Care 12/18/2024 8:30 AM EDT - 12/18/2024 9:45 AM EDT Hospital Encounter [facility] [address] [place] [address] Myelodysplasia (myelodysplastic syndrome) (CMS/HCC) (Primary Dx); Thrombocytopenia (CMS/HCC) Discharge Disposition: Home or Self Care 12/18/2024 Travel 12/17/2024 8:23 AM EDT - 12/17/2024 11:59 PM EDT Hospital Encounter [facility] [address] [place] [address] Myelodysplasia (myelodysplastic syndrome) (CMS/HCC) (Primary Dx); Thrombocytopenia (CMS/HCC) Discharge Disposition: Home or Self Care 12/17/2024 Travel 12/16/2024 11:00 AM EDT - 12/16/2024 11:59 PM EDT Hospital Encounter [facility] [address] [place] [address] Myelodysplasia (myelodysplastic syndrome) (CMS/HCC) (Primary Dx) Discharge Disposition: Home or Self Care 12/16/2024 10:00 AM EDT - 12/16/2024 10:59 AM EDT Hospital Encounter [facility] [address] [place] [address] Myelodysplasia (myelodysplastic syndrome) (CMS/HCC) (Primary Dx); Thrombocytopenia (CMS/HCC) Discharge Disposition: Home or Self Care 12/16/2024 8:30 AM EDT Office Visit [facility] Hematology/BMT and Cellular Therapy Program [address] [facility], [address] [place] [address] [place] [address] Isaura Wynn APRN Myelodysplasia (myelodysplastic syndrome) (CMS/HCC) (Primary Dx) 12/16/2024 8:00 AM EDT Clinical Support [facility] Hematology/BMT and Cellular Therapy Program [address] [facility], [address] [place] [address] [place] [address] 12/16/2024 Orders Only [facility] Hematology/BMT and Cellular Therapy Program [address] [facility], [address] [place] [phone] Christina Ramos MD Myelodysplasia (myelodysplastic syndrome) (CMS/HCC) (Primary Dx) 12/16/2024 Travel 12/12/2024 Orders Only [facility] Hematology/BMT and Cellular Therapy Program [address] [facility], [address] [place] [phone] Gricel Gonzalez RN 12/11/2024 2:30 PM EDT Office Visit [facility] Vascular Interventional Radiology [address], [address] [place] [address] Judy Leung APRN, DNP Port-A-Cath in place (Primary Dx); Myelodysplasia (myelodysplastic syndrome) (CMS/HCC) 12/11/2024 1:00 PM EDT Clinical Support [facility] [address] [facility], 2nd [place] [address] Myelodysplasia (myelodysplastic syndrome) (CMS/HCC) (Primary Dx); Thrombocytopenia (CMS/HCC) 12/11/2024 9:00 AM EDT Office Visit [facility] Hematology/BMT and Cellular Therapy Program [address] [phone] Virgen Vargas MD Myelodysplasia (myelodysplastic syndrome) (CMS/HCC) (Primary Dx); Encounter for antineoplastic chemotherapy; 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); Pancytopenia due to chemotherapy (CMS/HCC); Immunosuppressed due to chemotherapy 12/11/2024 8:30 AM EDT Clinical Support [facility] Hematology/BMT and Cellular Therapy Program [address] [phone] Myelodysplasia (myelodysplastic syndrome) (CMS/HCC) 12/11/2024 Orders Only [facility] Hematology/BMT and Cellular Therapy Program [address] [facility], [address] [place] [phone] Jackie, 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 E, 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 light fixture 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 myeloid leukemia not having achieved remission (CMS/HCC) (Primary Dx) 12/11/2024 Travel 12/09/2024 1:30 PM EDT Clinical Support [facility] [address] [facility], 2nd [place] [phone] Myelodysplasia (myelodysplastic syndrome) (CMS/HCC) (Primary Dx); Thrombocytopenia (CMS/HCC) 12/09/2024 9:00 AM EDT Procedure Visit [facility] Hematology/BMT and Cellular Therapy Program [address] [facility], [address] [place] [phone] Kierra Novak APRN Myelodysplasia (myelodysplastic syndrome) (CMS/HCC) 12/09/2024 8:30 AM EDT Clinical Support [facility] CC Hematology/BMT and Cellular Therapy Program [address] [facility], [address] [place] [phone] 12/09/2024 Telephone [facility] CC Hematology/BMT and Cellular Therapy Program [address] [place] [phone] Essie Ricks RN 12/09/2024 Travel 12/08/2024 Travel 12/04/[address] [facility] Vascular Interventional Radiology [address], [facility] Room [address] [phone] Martha William 12/01/2024 8:41 AM EDT - 12/01/2024 11:59 PM EDT Hospital Encounter [facility] Interventional Radiology [address] [place] [address] Gela Singer Thrombocytopenia (CMS/HCC) (Primary Dx); Myelodysplasia (myelodysplastic syndrome) (CMS/HCC) Discharge Disposition: Home or Self Care 12/01/2024 Travel 11/26/2024 10:00 AM EDT Office Visit [facility] Vascular Interventional Radiology [address] [facility] Room [address] [place] [phone] Latoya Nunez APRN Preop examination (Primary Dx) 11/26/2024 Travel 11/25/2024 Telephone [facility] Hematology/BMT and Cellular Therapy Program [address], [address] [place] [address] Michelle Mast Distress Screen Follow-up 11/24/2024 2:30 PM EDT - 11/24/2024 11:59 PM EDT Hospital Encounter [facility] 1 [address] [place] [address] Discharge Disposition: Home or Self Care 11/24/2024 1:59 PM EDT - 11/24/2024 2:29 PM EDT Hospital Encounter [facility] 1 [address] [place] [address] Myelodysplasia (myelodysplastic syndrome) (CMS/HCC) (Primary Dx); Thrombocytopenia (CMS/HCC) Discharge Disposition: Home or Self Care 11/24/2024 Travel 11/23/2024 1:43 PM EDT - 11/23/2024 11:59 PM EDT Hospital Encounter [facility] 1 [address] [place] [address] Myelodysplasia (myelodysplastic syndrome) (CMS/HCC) (Primary Dx) Discharge Disposition: Home or Self Care 11/23/2024 Travel 11/22/2024 1:59 PM EDT - 11/22/2024 11:59 PM EDT Hospital Encounter [facility] 1 [address] [place] [address] Myelodysplasia (myelodysplastic syndrome) (CMS/HCC) (Primary Dx); Thrombocytopenia (CMS/HCC) Discharge Disposition: Home or Self Care 11/22/2024 Travel 11/21/2024 1:30 PM EDT - 11/21/2024 11:59 PM EDT Hospital Encounter [facility] 1 [address] [place] [address] Myelodysplasia (myelodysplastic syndrome) (CMS/HCC) (Primary Dx) Discharge Disposition: Home or Self Care 11/21/2024 Travel 11/20/2024 2:06 PM EDT - 11/20/2024 11:59 PM EDT Hospital Encounter [facility] 1 [address] [place] [address] Myelodysplasia (myelodysplastic syndrome) (CMS/HCC) (Primary Dx) Discharge Disposition: Home or Self Care 11/20/2024 1:36 PM EDT - 11/20/2024 2:05 PM EDT Hospital Encounter [facility] 1 [address] [place] [address] Myelodysplasia (myelodysplastic syndrome) (CMS/HCC) (Primary Dx); Thrombocytopenia (CMS/HCC) Discharge Disposition: Home or Self Care 11/20/2024 Travel 11/19/2024 2:00 PM EDT - 11/19/2024 11:59 PM EDT Hospital Encounter [facility] 1 [address] [place] [address] Myelodysplasia (myelodysplastic syndrome) (CMS/HCC) (Primary Dx) Discharge Disposition: Home or Self Care 11/19/2024 Travel 11/19/2024 Orders Only [facility] Hematology/BMT and Cellular Therapy Program [address] [facility], [facility] [place] [address] Adam Conway, RN Myelodysplasia (myelodysplastic syndrome) (CMS/HCC) (Primary Dx) 11/18/2024 12:25 PM EDT - 11/18/2024 11:59 PM EDT Hospital Encounter [facility] Infusion Clinic 1 [address] [place] [address] Myelodysplasia (myelodysplastic syndrome) (CMS/HCC) (Primary Dx); Thrombocytopenia (CMS/HCC) Discharge Disposition: Home or Self Care 11/18/2024 11:00 AM EDT Office Visit [facility] CC Hematology/BMT and Cellular Therapy Program [address] [facility], [address] [place] [place] [address] Isaura Wynn APRN Myelodysplasia (myelodysplastic syndrome) (CMS/HCC) (Primary Dx) 11/18/2024 10:30 AM EDT Clinical Support [facility] Hematology/BMT and Cellular Therapy Program [address] [facility], [address] [place] [address] 11/18/2024 Telephone [facility] [address] [place] [address] Maia Velasquez, PharmD 11/18/2024 Telephone [facility] Hematology/BMT and Cellular Therapy Program [address] [phone] Brittny Mahoney RN 11/18/2024 Telephone [facility] Hematology/BMT and Cellular Therapy Program [address] [phone] Gricel Gonzalez RN 11/18/2024 Travel 11/17/2024 Travel 11/10/2024 3:00 PM EDT - 11/10/2024 11:59 PM EDT Hospital Encounter [facility] [address] [place] [address] Myelodysplasia (myelodysplastic syndrome) (CMS/HCC) (Primary Dx); Thrombocytopenia (CMS/HCC) Discharge Disposition: Home or Self Care 11/10/2024 2:00 PM EDT Procedure Visit [facility] Hematology/BMT and Cellular Therapy Program [address] [phone] Elaina Boss, PA Myelodysplasia (myelodysplastic syndrome) (CMS/HCC) (Primary Dx) 11/10/2024 1:30 PM EDT Clinical Support [facility] Hematology/BMT and Cellular Therapy Program [address] [place] [phone] Eliana Vicente, RN 11/10/2024 Travel 11/05/2024 11:00 AM EDT Clinical Support [facility] [address] [phone] Dyspnea on exertion 11/05/2024 10:00 AM EDT Office Visit [facility] [address] [phone] Elsa Razo, ESTRELLA Pre-transplant evaluation for stem cell transplant (Primary Dx); Myelodysplasia (myelodysplastic syndrome) (CMS/HCC); Dyspnea on exertion; Coronary artery disease involving shoalwater coronary artery of shoalwater heart without angina pectoris; Thrombocytopenia (CMS/HCC) 11/05/2024 Results Follow-Up [facility] [address] [facility], 2nd [place] [address] Elsa Razo APRN 11/05/2024 Travel 11/03/2024 2:31 PM EDT - 11/03/2024 6:28 PM EDT Emergency [facility] A Emergency Department [address] [place] [phone] Kyle Bearden MD Symptomatic anemia (Primary Dx); Thrombocytopenia (CMS/HCC); Neutropenia, unspecified type (CMS/HCC) Discharge Disposition: Home or Self Care 11/03/2024 Travel 11/03/2024 Telephone [facility] Hematology/BMT and Cellular Therapy Program [address] [place] [address] Virgen Vargas MD 10/29/2024 Telephone [facility] Hematology/BMT and Cellular Therapy Program [address] [place] [address] Virgen Vargas MD from Last 3 [...] drink first t manav in the morning (EYE-HYDROELECTRIC PLANT MAINTAINER) to steady your nerves or to get [...] Appointment [facility] Interventional Radiology [address] [place] [address] 02/10/2025 8:30 AM EDT Clinical Support [facility] Hematology/BMT and Cellular Therapy Program [address] [place] [address] 02/10/2025 9:00 AM EDT Office Visit [facility] Hematology/BMT and Cellular Therapy Program [address] [place] [address] Elaina Boss, ARAM 800 [facility] [address] [place] [address] 02/10/2025 10:30 AM EDT Appointment [facility] Infusion [facility] 1 [address] [place] [phone] 02/11/2025 2:00 PM EDT Appointment [facility] 1 [address] [place] [phone] 02/12/2025 2:00 PM EDT Appointment [facility]fusion [facility] 1 [address] [place] [phone] 02/13/2025 2:00 PM EDT Appointment [facility]fusion [facility] 1 [address] [place] [phone] 02/14/2025 2:00 PM EDT Appointment [facility] 1 [address] [place] [address] 03/10/2025 8:30 AM EDT Clinical Support [facility] Hematology/BMT and Cellular Therapy Program [address] [phone] 03/10/2025 9:00 AM EDT Office Visit [facility] Hematology/BMT and Cellular Therapy Program [address] [phone] Isaura Wynn, VENDING MACHINE REFILLER 800 [facility] [address] [place] [address] 03/10/2025 11:20 AM EDT Office Visit [facility] [address] [facility], 2nd [place] [phone] Elsa Razo, VENDING MACHINE REFILLER [address] [place] [phone] Health Maintenance Due Date Last Done Comments [...] 2015 [facility]-Abdominal Aortic Aneurysm (AAA) Screening 2020 [id number] Vaccine (3 - Pfizer risk series) 11/11/2020 [...] this topic Medical Devices Implanted Type Area Tank Furnace Operator Device Identifier Shelf Expiration Date Model / Serial / Lot Port Clearvue Power 8fr - [id number] Implanted:Qty: 1 on 12/01/2024 by Mckinley Lee MD at [facility]-[id number] / / Procedures Procedure Name Priority Date/Time [...] ECG ADULT STAT 11/03/2024 12:50 PM EDT HEPATITIS C ANTIBODY W/REFLEX TO HCV QUANT PCR Routine 09/29/2024 12:51 PM EDT Myelodysplasia (myelodysplastic syndrome) (CMS/HCC) from Last 3 Months or Most Recently Relevant to Health Maintenance Results * Transfuse RBC, Irradiated (01/17/2025 11:42 AM EDT) Only the most recent of8 resultswithin the time period is included. Kayli HCIU BLOOD TRANSFUSION ORDERA BLES Final Result * Prepare Leukocyte Reduced RBC: 1 Units, Irradiated (01/17/2025 8:56 AM EDT) Only the most recent of8 resultswithin the time period is included. [facility] Product Code [id number] BLOO D BANK Dispense Status Transfused BLOOD BANK Blood Expiration Date [id number] BLOOD BANK Unit Number [id number] B LOOD BANK Product Blood Type 9500 BLOOD BANK Blood Type O- BLOOD BANK Crossmatch Compatible BLOOD BANK Other Kayli CHIU BLOOD BANK PRODUCT ORDER VIKAS Final Result Performing Organization Address City/State/[facility] Co de Phone Number BLOOD BANK [address] [place] [address], * (ABNORMAL) CBC and differential (01/17/2025 8:03 AM EDT) Only the most recent of17 resultswithin the time period is included. [facility] WBC Count 0.54(LL) 3.70 - 10.30 10*3/uL LAB HEMATOLOGY METHOD 01/17/2025 9:41 AM EDT [facility] RBC Count 2.55(L) 4.60 - 6.10 10*6/uL LAB HEMATOLOGY METHOD 01/17/2025 9:41 AM EDT [facility] HGB 7.6(L) 13.7 - 17.5 g/dL LAB HEMATOLOGY METHOD 01/17/2025 9:41 AM EDT [facility] HCT 21.6(L) 40.0 - 51.0 % LAB HEMATOLOGY METHOD 01/17/2025 9:41 AM EDT [facility] Platelet Count 23(L) 155 - 369 10*3/uL LAB HEMATOLOGY METHOD 01/17/2025 9:41 AM EDT [facility] MCV 85 79 - 98 fL LAB HEMATOLOGY METHOD 01/17/2025 9:41 AM EDT [facility] MCH 29.8 26.0 - 32.0 pg LAB HEMATOLOGY METHOD 01/17/2025 9:41 AM EDT [facility] MCHC 35.2 30.7 - 35.5 g/dL LAB HEMATOLOGY METHOD 01/17/2025 9:41 AM EDT [facility] RDW 14.2 11.5 - 14.5 % LAB HEMATOLOGY METHOD 01/17/2025 9:41 AM EDT [facility] MPV 9.0 8.8 - 12.5 fL LAB HEMATOLOGY METHOD 01/17/2025 9:41 AM EDT [facility] nRBC 0.0 <=0.0 per 100 WBCs LAB HEMATOLOGY METHOD 01/17/2025 9:41 AM EDT [facility] Differential Type Automated LAB HEMATOLOGY METHOD 01/17/2025 9:41 AM EDT [facility] Neutrophils % 7 % LAB HEMATOLOGY METHOD 01/17/2025 9:41 AM EDT [facility] Lymphocytes % 91 % LAB HEMATOLOGY METHOD 01/17/2025 9:41 AM EDT [facility] Monocytes % 2 % LAB HEMATOLOGY METHOD 01/17/2025 9:41 AM EDT [facility] Eosinophils % 0 % LAB HEMATOLOGY METHOD 01/17/2025 9:41 AM EDT [facility] Basophils % 0 % LAB HEMATOLOGY METHOD 01/17/2025 9:41 AM EDT [facility] Immature Granulocytes % 0 % LAB HEMATOLOGY METHOD 01/17/2025 9:41 AM EDT [facility] Neutrophils Absolute 0.04(LL) 1.60 - 6.10 10*3/uL LAB HEMATOLOGY METHOD 01/17/2025 9:41 AM EDT [facility] Lymphocytes Absolute 0.49(L) 1.20 - 3.90 10*3/uL LAB HEMATOLOGY METHOD 01/17/2025 9:41 AM EDT [facility] Monocytes Absolute 0.01(L) 0.30 - 0.90 10*3/uL LAB HEMATOLOGY METHOD 01/17/2025 9:41 AM EDT [facility] Eosinophils Absolute 0.00 0.00 - 0.50 10*3/uL LAB HEMATOLOGY METHOD 01/17/2025 9:41 AM EDT [facility] Basophils Absolute 0.00 0.00 - 0.10 10*3/uL LAB HEMATOLOGY METHOD 01/17/2025 9:41 AM EDT [facility] Immature Granulocytes Absolute 0.00 0.00 - 0.06 10*3/uL LAB HEMATOLOGY METHOD 01/17/2025 9:41 AM EDT [facility] Blood Blood sample taken from central line / Unknown (Port) Long-term Catheter / Unknown 01/17/2025 8:03 AM EDT 01/17/2025 8:07 AM EDT Narrative [facility] - 01/17/2025 9:41 AM EDT Therapeutic decision making should be based on absolute values, rather than percentages. Virgen Vargas MD LAB BLOOD ORDERABLES Final Re sult [facility] [address] [place] [address] * Type and Screen (01/16/2025 9:54 AM [...] ORDERABLE S Final Result Performing Organization Address City/[facility]/ZIP Co de Phone Number BLOOD BANK [address] [place] [address], [place] * (ABNORMAL) Platelet count (01/16/2025 8:12 AM EDT) Only the most recent of11 resultswithin the time period is included. Platelet Count 39(L) 155 - 369 10*3/uL LAB HEMATOLOGY METHOD 01/16/2025 8:38 AM EDT [facility] Blood Blood sample taken from central line / Unknown Venipuncture / Unknown 01/16/2025 8:12 AM EDT 01/16/2025 8:27 AM EDT us Virgen Vargas MD LAB BLOOD ORDERABLES Final Re sult [facility] [address] [place] [address] * (ABNORMAL) CBC W/O Differential (01/16/2025 8:12 AM EDT) Only the most recent of2 resultswithin the time period is included. WBC Count 0.49(LL) 3.70 - 10.30 10*3/uL LAB HEMATOLOGY METHOD 01/16/2025 11:30 AM EDT [facility] RBC Count 2.65(L) 4.60 - 6.10 10*6/uL LAB HEMATOLOGY METHOD 01/16/2025 11:30 AM EDT [facility] HGB 8.0(L) 13.7 - 17.5 g/dL LAB HEMATOLOGY METHOD 01/16/2025 11:30 AM EDT [facility] HCT 23.0(L) 40.0 - 51.0 % LAB HEMATOLOGY METHOD 01/16/2025 11:30 AM EDT [facility] Platelet Count 39(L) 155 - 369 10*3/uL LAB HEMATOLOGY METHOD 01/16/2025 11:30 AM EDT [facility] MCV 87 79 - 98 fL LAB HEMATOLOGY METHOD 01/16/2025 11:30 AM EDT [facility] MCH 30.2 26.0 - 32.0 pg LAB HEMATOLOGY METHOD 01/16/2025 11:30 AM EDT [facility] MCHC 34.8 30.7 - 35.5 g/dL LAB HEMATOLOGY METHOD 01/16/2025 11:30 AM EDT [facility] RDW 14.5 11.5 - 14.5 % LAB HEMATOLOGY METHOD 01/16/2025 11:30 AM EDT [facility] MPV 10.2 8.8 - 12.5 fL LAB HEMATOLOGY METHOD 01/16/2025 11:30 AM EDT [facility] nRBC 0.0 <=0.0 per 100 WBCs LAB HEMATOLOGY METHOD 01/16/2025 11:30 AM EDT [facility] Blood Blood sample taken from central line / Unknown Venipuncture / Unknown 01/16/2025 8:12 AM EDT 01/16/2025 8:27 AM EDT Virgen Vargas MD LAB BLOOD ORDERABLES Final Re sult [facility] [address] [place] [address] * Transfuse platelets (01/15/2025 10:55 AM EDT) Only the most recent of12 resultswithin the time period is included. Kayli CHIU BLOOD TRANSFUSION ORDERA BLES Final Result * Exception to Standard Practice, Pathologist Interpretation (01/15/2025 10:08 AM EDT) Only the most recent of11 [...] ORDERAB LES Final Result BLOOD BANK [address] [place] [address], * Prepare Leukocyte Reduced Platelets: 1 Units (01/15/2025 9:55 AM EDT) Only the most recent of13 resultswithin the time period is included. Product Code [id number] CH BLOO D BANK Dispense Status Transfused BLOOD BANK Blood Expiration Date [id number] BLOOD BANK Unit Number [id number] CH B LOOD BANK Product Blood Type 6200 BLOOD BANK Blood Type A+ BLOOD BANK Blood Venous blood specimen / Unknown Kayli CHIU BLOOD BANK PRODUCT ORDER VIKAS Final Result Performing Organization Address [facility] Co de Phone Number BLOOD [facility] [address] [place] [address], * (ABNORMAL) Uric acid (01/15/2025 8:17 AM EDT) Only the most recent of3 resultswithin the time period is included. Uric Acid, Plasma 3.0(L) 3.7 - 8.0 mg/dL 01/15/2025 9:19 AM EDT [facility] Blood Blood sample taken from central line / Unknown (Port) Long-term Catheter / Unknown 01/15/2025 8:17 AM EDT 01/15/2025 8:47 AM EDT Virgen Vargas MD LAB BLOOD ORDERABLES Final Re sult [facility] [address] [place] [address] * Phosphorus (01/15/2025 8:17 AM EDT) Only the most recent of3 resultswithin the time period is included. Phosphorus, Plasma 3.1 2.5 - 4.5 mg/dL 01/15/2025 9:19 AM EDT [facility] Blood Blood sample taken from central line / Unknown (Port) Long-term Catheter / Unknown 01/15/2025 8:17 AM EDT 01/15/2025 8:47 AM EDT Virgen Vargas MD LAB BLOOD ORDERABLES Final Re sult Performing Organization Address [facility] [place] [address] * Magnesium (01/15/2025 8:17 AM EDT) Only the most recent of3 resultswithin the time period is included. [facility] Magnesium, Plasma 2.2 1.9 - 2.4 mg/dL 01/15/2025 9:19 AM EDT [facility] Blood Blood sample taken from central line / Unknown (Port) Long-term Catheter / Unknown 01/15/2025 8:17 AM EDT 01/15/2025 8:47 AM EDT Virgen Vargas MD LAB BLOOD ORDERABLES Final Re sult Performing Organization Address [facility] Co de Phone Number [facility] [address] [place] [address] * LACTATE DEHYDROGENASE (01/15/2025 8:17 AM EDT) Only the most recent of3 resultswithin the time period is included. LDH, Plasma 192 116 - 250 U/L 01/15/2025 9:19 AM EDT [facility] Blood Blood sample taken from central line / Unknown (Port) Long-term Catheter / Unknown 01/15/2025 8:17 AM EDT 01/15/2025 8:47 AM EDT us Virgen Vargas MD LAB BLOOD ORDERABLES Final Re sult [facility] [address] [place] [address] * (ABNORMAL) BASIC METABOLIC PANEL (01/15/2025 8:17 AM EDT) Only the most recent of2 resultswithin the time period is included. Glucose, Plasma 96 74 - 99 mg/dL 01/15/2025 9:19 AM EDT [facility] BUN, Plasma 12 8 - 23 mg/dL 01/15/2025 9:19 AM EDT [facility] Creatinine, Plasma 0.71 0.70 - 1.20 mg/dL 01/15/2025 9:19 AM EDT [facility] BUN/Creatinine Ratio 17 01/15/2025 9:19 AM EDT [facility] Sodium, Plasma 139 136 - 145 mmol/L 01/15/2025 9:19 AM EDT [facility] Potassium, Plasma 4.1 3.6 - 4.9 mmol/L 01/15/2025 9:19 AM EDT [facility] Chloride, Plasma 108(H) 97 - 107 mmol/L 01/15/2025 9:19 AM EDT [facility] CO2, Plasma 21(L) 22 - 29 mmol/L 01/15/2025 9:19 AM EDT [facility] Anion Gap 10 6 - 16 mmol/L 01/15/2025 9:19 AM EDT [facility] Total Calcium, Plasma 8.9 8.9 - 10.2 mg/dL 01/15/2025 9:19 AM EDT [facility] eGFRcr 99.3 mL/min/1.7 3m*2 01/15/2025 9:19 AM EDT [facility] Comment:Reported eGFRcr in m L/min/1.73m2 is based the CKD-EPI 2020 equation that does not use a race coefficient. Blood Blood sample taken from central line / Unknown (Port) Long-term Catheter / Unknown 01/15/2025 8:17 AM EDT 01/15/2025 8:47 AM EDT us Virgen Vargas MD LAB BLOOD ORDERABLES Final Re sult [facility] [address] [place] [address] * (ABNORMAL) Comprehensive Metabolic Panel, Plasma (01/13/2025 10:02 AM EDT) Only the most recent of13 resultswithin the time period is included. Glucose, Plasma 104(H) 74 - 99 mg/dL 01/13/2025 10:56 AM EDT [facility] BUN, Plasma 9 8 - 23 mg/dL 01/13/2025 10:56 AM EDT [facility] Creatinine, Plasma 0.72 0.70 - 1.20 mg/dL 01/13/2025 10:56 AM EDT [facility] BUN/Creatinine Ratio 13 01/13/2025 10:56 AM EDT [facility] Sodium, Plasma 140 136 - 145 mmol/L 01/13/2025 10:56 AM EDT [facility] Potassium, Plasma 4.5 3.6 - 4.9 mmol/L 01/13/2025 10:56 AM EDT [facility] Chloride, Plasma 109(H) 97 - 107 mmol/L 01/13/2025 10:56 AM EDT [facility] CO2, Plasma 21(L) 22 - 29 mmol/L 01/13/2025 10:56 AM EDT [facility] Anion Gap 10 6 - 16 mmol/L 01/13/2025 10:56 AM EDT [facility] Total Calcium, Plasma 8.9 8.9 - 10.2 mg/dL 01/13/2025 10:56 AM EDT [facility] Total Protein 6.9 6.3 - 7.9 g/dL 01/13/2025 10:56 AM EDT [facility] Albumin, Plasma 4.1 3.5 - 5.2 g/dL 01/13/2025 10:56 AM EDT [facility] AST, Plasma 84(H) 10 - 50 U/L 01/13/2025 10:56 AM EDT [facility] ALT, Plasma 95(H) 10 - 50 U/L 01/13/2025 10:56 AM EDT [facility] Alkaline Phosphatase, Plasma 83 40 - 115 U/L 01/13/2025 10:56 AM EDT [facility] Total Bilirubin, Plasma 0.7 0.2 - 1.1 mg/dL 01/13/2025 10:56 AM EDT [facility] eGFRcr 98.9 mL/min/1.7 3m*2 01/13/2025 10:56 AM EDT [facility] Comment:Reported eGFRcr in m L/min/1.73m2 is based the CKD-EPI 2020 equation that does not use a race coefficient. Blood Blood sample taken from central line / Unknown (Port) Long-term Catheter / Unknown 01/13/2025 10:02 AM EDT 01/13/2025 10:24 AM EDT us Isaura Wynn APRN LAB BLOOD ORDERABLES Final Res ult [facility] [address] [place] [address] * BIOPSY BONE MARROW (01/06/2025 10:00 AM EDT) Narrative Kierra Novak APRN - 01/06/2025 10:00 AM EDT Kierra Novak APRN 01/06/2025 10:24 AM Biopsy bone marrow Date/Time: 01/06/2025 10:00 AM Performed by: Kierra Novak APRN Authorized by: Kierra Novak APRN Consent: Consent obtained: Written Consent given by: Patient Risks, benefits, and alternatives were discussed: yes Risks discussed: Bleeding, infection and pain [place] protocol: Procedure explained and questions answered to [...] well, no immediate complications us Kierra Novak VENDING MACHINE REFILLER IN CLINIC/BEDSIDE ORDERAB LES Final Result * Leukemia/Lymphoma - Immunophenotyping by Flow Cytometry (01/06/2025 9:48 AM EDT) Only the most recent of3 resultswithin the time period is included. Clinical Indication AML 01/07/2025 10:18 AM EDT [facility] Flow Cytometry Interpretation APPROXIMATELY 16% MYELOID BLASTS; EXPRESSING CD34, CD117, CD13, CD33, HLA-DR, PARTIAL CD7, PARTIAL CD123, VARIABLE CD38, AND MODERATE CD45, SEE COMMENT, BONE MARROW ASPIRATE. 01/07/2025 10:18 AM EDT [facility] Comments Specimen viability is [...] disease. Final interpretation requires morphologic correlation (BM [id number]). The following antibodies were used in this analysis: CD45, CD2, CD3, CD4, CD5, CD7, CD8, CD10, CD13, CD14, CD15, CD16, CD19, CD20, CD33, CD34, CD38, CD56, CD117, HLA-DR, kappa surface light chains, lambda surface light chains, CD123 01/07/2025 10:18 AM EDT [facility] Disclaimer This test was developed and [...] clinical laboratory testing. 01/07/2025 10:18 AM EDT [facility] Pathologist Signature Reviewed by: Tessie Peralta MD 01/07/2025 10:18 AM EDT [facility] MRD Indicated Test Not Indicated 10:18 AM EDT [facility] Bone Marrow Specimen from bone marrow obtained by aspiration / Unknown Non-blood Collection / Unknown 01/06/2025 9:48 AM EDT 01/06/2025 11:20 AM EDT Virgen Vargas MD LAB FLOW CYTOMETRY ORDERABLES Final Result Performing Organization Address City/State/[facility] Co de Phone Number [facility] [address] [place] [address] * Bone marrow exam (01/06/2025 9:48 AM EDT) Only the most recent of3 resultswithin the time period is included. Case Report Bone Marrow Case: [id number] Authorizing Provider: Virgen Vargas MD Collected: 01/06/2025 0948 Ordering Location: [facility] Hematology/BMT and Received: 01/06/2025 1108 Cellular Therapy Program Pathologist: Tessie Peralta MD Specimens: A) - Bone Marrow Aspirate, left B) - Bone Marrow Biopsy, left C) - Peripheral Blood for Bone Marrow 6:13 PM EDT [facility] Final Diagnosis BONE MARROW, LEFT POSTERIOR ILIAC CREST, (PERIPHERAL SMEAR, ASPIRATE SMEARS, AND CORE BIOPSY): - MILDLY HYPOCELLULAR BONE MARROW WITH ERYTHROID HYPERPLASIA, MARKEDLY REDUCED GRANULOPOIESIS, PERSISTENT DYSPOIESIS AND 10% BLASTS, SEE COMMENT. 6:13 PM EDT [facility] at 1813 EDT Comment The marrow cellularity is composed of erythroid cells with markedly reduced granulopoiesis and decreased megakaryocytes. Persistent trilineage dyspoiesis is noted. The blast percentages are higher by flow cytometry analysis as the majority of marrow cellularity consists of erythroid precursors that are removed by flow cytometry. 5 6:13 PM T [facility] Clinical Information AML 12/22 5 6:13 PM T [facility] CBC and [...] blasts are identified. 5 6:13 PM T [facility] Bone Marrow Differential BONE MARROW DIFFERENTIAL: 400 cells Normal Patient Neutrophils 15-50 0 Metamyelocytes 4-19 1 Myelocytes 1-18 2 Promyelocytes 1-8 1 Blasts 0-2 10 Monocytes 0-5 0 Erythroid 16-38 73 Lymphocytes 3-24 4 Eosinophils 0-6 1 Basophils 0-2 0 Plasma cells 0-4 8 Other 5 6:13 PM EDT [facility] [...] trabeculae are unremarkable. 5 6:13 PM EDT [facility] Special and Immunohistochemical Stains Immunohistochemica l [...] at the [facility], [address] [place] [address]. All tests reported here, except those addressing [...] on decalcified specimens. 5 6:13 PM EDT [facility] Flow Cytometry Interpretation APPROXIMATELY 16% MYELOID BLASTS; EXPRESSING CD34, CD117, CD13, CD33, HLA-DR, PARTIAL CD7, PARTIAL CD123, VARIABLE CD38, AND MODERATE CD45, SEE COMMENT, BONE MARROW ASPIRATE ([id number]) 5 6:13 PM EDT [facility] Gross Description B. LEFT A single specimen is received in formalin labeled bone marrow biopsy left posterior iliac crest and consists of 2 piece(s) of tissue measuring 0.8/0.2 cm in length 0.2 cm in diameter. The specimen is submitted in to Histology for decalcification and routine processing. Cold Time: <1m 6:13 PM EDT [facility] Note: A resident was involved in the service. I attest I examined the relevant preparations for the specimens and confirmed the diagnosis or interpretation. 6:13 PM EDT [facility] Bone Marrow Peripheral blood [...] MD LAB PATHOLOGY ORDERABLES Terri l Result [facility] [address] [place] [address] * Group A Streptococcus by PCR (12/16/2024 9:40 AM EDT) Group A Streptococcus PCR Result Not Detected Not Detected 12/16/2024 11:53 AM EDT [facility] Swab Pharyngeal structure / Unknown Non-blood Collection / Unknown 12/16/2024 9:40 AM EDT 12/16/2024 10:10 AM EDT us Isaura Wynn APRN LAB MICROBIOLOGY - GENERAL ORD ERABLES Final Result Performing Organization Address City/[facility]/ZIP Co de Phone Number [facility] [address] [place] [address] * Streptococcus Culture (12/16/2024 9:40 AM EDT) Culture Reading Strep A No Streptococcus pyogenes or Streptococcus dysgalactiae isolated 12/17/2024 2:28 PM EDT [facility] Swab Pharyngeal structure / Unknown Non-blood Collection / Unknown 12/16/2024 9:40 AM EDT 12/16/2024 10:10 AM EDT Isaura Wynn APRN LAB MICROBIOLOGY - GENERAL ORD ERABLES Final Result Performing Organization Address [facility] Co de Phone Number [facility] [address] [place] [address] * Morphology (12/11/2024 8:38 AM EDT) Only the most recent of4 resultswithin the time period is included. Elliptocytes/ Ovalocytes Present LAB HEMATOLOGY METHOD 12/11/2024 10:53 AM EDT [facility] RBC Morphology Slide Reviewed LAB HEMATOLOGY METHOD 12/11/2024 10:53 AM EDT [facility] Platelet Estimate Platelet smear estimate consistent with automated count LAB HEMATOLOGY METHOD 12/11/2024 10:53 AM EDT [facility] Blood Venous blood specimen / Unknown Venipuncture / Unknown 12/11/2024 8:38 AM EDT 12/11/2024 8:50 AM EDT Virgen Vargas MD LAB BLOOD ORDERABLES Final Re sult Performing Organization Address City/[facility] Co de Phone Number [facility] [address] [place] [address] * (ABNORMAL) Manual Differential (12/11/2024 8:38 AM EDT) Only the most recent of3 resultswithin the time period is included. Blasts % 1 % LAB HEMATOLOGY METHOD 12/11/2024 10:53 AM EDT [facility] Promyelocytes % 0 % LAB HEMATOLOGY METHOD 12/11/2024 10:53 AM EDT [facility] Myelocytes % 0 % LAB HEMATOLOGY METHOD 12/11/2024 10:53 AM EDT [facility] Metamyelocytes % 0 % LAB HEMATOLOGY METHOD 12/11/2024 10:53 AM EDT [facility] Neutrophils % 4 % LAB HEMATOLOGY METHOD 12/11/2024 10:53 AM EDT [facility] Lymphocytes % 90 % LAB HEMATOLOGY METHOD 12/11/2024 10:53 AM EDT [facility] Reactive Lymphocytes % 3 % LAB HEMATOLOGY METHOD 12/11/2024 10:53 AM EDT [facility] Monocytes % 2 % LAB HEMATOLOGY METHOD 12/11/2024 10:53 AM EDT [facility] Eosinophils % 0 % LAB HEMATOLOGY METHOD 12/11/2024 10:53 AM EDT [facility] Basophils % 0 % LAB HEMATOLOGY METHOD 12/11/2024 10:53 AM EDT [facility] Blasts Absolute 0.01 10*3/UL LAB HEMATOLOGY METHOD 12/11/2024 10:53 AM EDT [facility] Promyelocytes Absolute 0.00 10*3/uL LAB HEMATOLOGY METHOD 12/11/2024 10:53 AM EDT [facility] Myelocytes Absolute 0.00 10*3/uL LAB HEMATOLOGY METHOD 12/11/2024 10:53 AM EDT [facility] Metamyelocytes Absolute 0.00 10*3/uL LAB HEMATOLOGY METHOD 12/11/2024 10:53 AM EDT [facility] Neutrophils Absolute 0.02(LL) 1.60 - 6.10 10*3/uL LAB HEMATOLOGY METHOD 12/11/2024 10:53 AM EDT [facility] Lymphocytes Absolute 0.55(L) 1.20 - 3.90 10*3/uL LAB HEMATOLOGY METHOD 12/11/2024 10:53 AM EDT [facility] Reactive Lymphocytes Absolute 0.02 10*3/uL LAB HEMATOLOGY METHOD 12/11/2024 10:53 AM EDT [facility] Monocytes Absolute 0.01(L) 0.30 - 0.90 10*3/uL LAB HEMATOLOGY METHOD 12/11/2024 10:53 AM EDT [facility] Eosinophils Absolute 0.00 0.00 - 0.50 10*3/uL LAB HEMATOLOGY METHOD 12/11/2024 10:53 AM EDT [facility] Basophils Absolute 0.00 0.00 - 0.10 10*3/uL LAB HEMATOLOGY METHOD 12/11/2024 10:53 AM EDT [facility] Blood Venous blood specimen / Unknown Venipuncture / Unknown 12/11/2024 8:38 AM EDT 12/11/2024 8:50 AM EDT Virgen Vargas MD LAB BLOOD ORDERABLES Final Re sult Performing Organization Address City/[facility]/ZIP Co de Phone Number [facility] [address] [place] [address] * Peripheral blood smear, pathologist interpretation (12/11/2024 8:38 AM EDT) Only the most recent of3 resultswithin the time period is included. Pathologist [facility] Clinical Diagnosis, Peripheral Smear History of acute myeloid leukemia (recent bone marrow dated 12/09/2024 with 14% blasts) LAB HEMATOLOGY METHOD 12/11/2024 4:46 PM EDT [facility] Interpretation , Peripheral Smear Marked leukopenia with neutropenia and 1% circulating blasts. Dysplastic neutrophils (hypogranular) are noted. Moderate anemia and marked thrombocytopen ia. 12/11/2024 4:46 PM EDT [facility] Pathologist Signature, Peripheral Smear 12/11/2024 4:46 PM EDT [facility] Comment:Reviewed by: Omar Peralta MD Blood Venous blood specimen / Unknown Venipuncture / Unknown 12/11/2024 8:38 AM EDT 12/11/2024 8:50 AM EDT Virgen Vargas MD LAB PATHOLOGY ORDERABLES Terri l Result Performing Organization Address City/[facility] Co de Phone Number [facility] [address] [place] [address] * Chromosome Karyotype, Oncology (12/09/2024 10:15 AM EDT) Only the most recent of2 resultswithin the time period is included. Specimen Type Bone Marrow 12/16/2024 5:59 PM EDT [facility] Clinical Indication Acute Myeloid Leukemia 12/16/2024 5:59 PM EDT [facility] Specimen Adequacy Adequate 025 5:59 PM EDT [facility] Chromosome Analysis Result Giemsa-banded metaphase cells from unstimulated bone marrow cultures showed the following chromosome pattern: 43~45,X,-Y,t(4;1 4)(q21;q32),add( 5)(q13),add(16)( q11.2),-17,add(2 0)(q11.2)[cp13]/ 46,XY[7] 12/16/2024 5:59 PM EDT [facility] Interpretation Abnormal male chromosome [...] were observed on this patient's previous specimen [id number] and indicate persistent disease. Clinical correlation is recommended. Note: Per [employer] ([employer]) requirement additional karyotypes were performed and charged due to the presence of clonal abnormalities. # cells counted = 20 # cells analyzed = 20 # cells karyotyped = 3 Band resolution: 400 12/16/2024 5:59 PM EDT [facility] Pathologist Signature Reviewed by: Mesfin Rae 12/16/2024 5:59 PM EDT [facility] Bone Marrow Non-blood Collection / Unknown 12/09/2024 10:15 AM EDT 12/09/2024 12:48 PM EDT us Virgen Vargas MD LAB CYTOGENETICS ORDERABLES F inal Result [facility] [address] [place] [address] * BIOPSY BONE MARROW (12/09/2024 10:00 AM EDT) Narrative Kierra Novak APRN - 12/09/2024 10:00 AM EDT Kierra Novak APRN 12/09/2024 12:08 PM Biopsy bone marrow Date/Time: 12/09/2024 10:00 AM Performed by: Kierra Novak APRN Authorized by: Kierra Novak APRN Consent: Consent obtained: Written Consent given by: Patient Risks, benefits, and alternatives were discussed: yes Risks discussed: Bleeding, infection and pain [place] protocol: Procedure explained and questions answered to [...] for port placement. New AML, starting chemotherapy. Car Repairer Pullman: Mckinley Lee MD Secondary Dragger Out: Dr. David Holt Rad Dose: 6 mGy [...] was placed supine on the fluoro table. Log Snaker ultrasonography revealed the vein to be compressible [...] with no evidence of complication. Device: 6 Guyanese port catheter cut to length of 25 cm. COMPARISON: None. FINDINGS: Patent R IJV COMPLICATION: No. Procedure Note Mckinley Lee MD - 12/02/2024 CLINICAL INDICATION: 69M here for port placement. New AML, starting chemotherapy. Car Repairer Pullman: Mckinley Lee MD Secondary Dragger Out: Dr. David Holt Rad Dose: 6 mGy [...] patient was placed supine on the fluoro table.Log Snaker ultrasonography revealed the vein to be compressible [...] well with no evidence ofcomplication. Device: 6 Guyanese port catheter cut to length of 25 [...] MD on 12/02/2024 7:02 AM Isaura Wynn VENDING MACHINE REFILLER IMG IR PROCEDURES Final Result * (ABNORMAL) WBC Differential (12/01/2024 9:39 AM EDT) Differential Type Automated LAB HEMATOLOGY METHOD 12/01/2024 11:33 AM EDT [facility] Neutrophils % 9 % LAB HEMATOLOGY METHOD 12/01/2024 11:33 AM EDT [facility] Lymphocytes % 84 % LAB HEMATOLOGY METHOD 12/01/2024 11:33 AM EDT [facility] Monocytes % 6 % LAB HEMATOLOGY METHOD 12/01/2024 11:33 AM EDT [facility] Eosinophils % 1 % LAB HEMATOLOGY METHOD 12/01/2024 11:33 AM EDT [facility] Basophils % 0 % LAB HEMATOLOGY METHOD 12/01/2024 11:33 AM EDT [facility] Immature Granulocytes % 0 % LAB HEMATOLOGY METHOD 12/01/2024 11:33 AM EDT [facility] Immature Granulocytes Absolute 0.00 0.00 - 0.06 10*3/uL LAB HEMATOLOGY METHOD 12/01/2024 11:33 AM EDT [facility] Neutrophils Absolute 0.06(LL) 1.60 - 6.10 10*3/uL LAB HEMATOLOGY METHOD 12/01/2024 11:33 AM EDT [facility] Lymphocytes Absolute 0.59(L) 1.20 - 3.90 10*3/uL LAB HEMATOLOGY METHOD 12/01/2024 11:33 AM EDT [facility] Monocytes Absolute 0.04(L) 0.30 - 0.90 10*3/uL LAB HEMATOLOGY METHOD 12/01/2024 11:33 AM EDT [facility] Basophils Absolute 0.00 0.00 - 0.10 10*3/uL LAB HEMATOLOGY METHOD 12/01/2024 11:33 AM EDT [facility] Eosinophils Absolute 0.01 0.00 - 0.50 10*3/uL LAB HEMATOLOGY METHOD 12/01/2024 11:33 AM EDT [facility] Blood Venous blood specimen / Unknown Venipuncture / Unknown 12/01/2024 9:39 AM EDT 12/01/2024 9:56 AM EDT us Virgen Vargas MD LAB BLOOD ORDERABLES Final Re sult [facility] [address] [place] [address] * Protime-INR (11/26/2024 10:51 AM EDT) Prothrombin Time 13.8 12.0 - 14.3 sec LAB COAGULATION METHOD 11/26/2024 11:52 AM EDT [facility] INR 1.1 0.9 - 1.1 LAB COAGULATION METHOD 11/26/2024 11:52 AM EDT [facility] Blood Venous blood specimen / Unknown Venipuncture / Unknown 11/26/2024 10:51 AM EDT 11/26/2024 10:51 AM EDT Narrative [facility] - 11/26/2024 11:52 AM EDT OPTIMAL INR RANGES FOR PATIENT ON ORAL ANTICOAGULANT THERAPY Prevention of venous thromboembolism INR 2.0 to 3.0 In patients with heart disease: Atrial fibrillation INR 2.0 to 3.0 Valvular heart disease INR 2.0 to 3.0 Tissue heart valves INR 2.0 to 3.0 Mechanical prosthetic valves INR 2.5 to 3.5 Prevention of recurrent OH INR 2.5 to 3.5 us Latoya Nunez VENDING MACHINE REFILLER LAB BLOOD ORDERABLES Final R esult Performing Organization Address City/[facility]/ZIP Co de Phone Number [facility] [address] [place] [address] * BIOPSY BONE MARROW (11/10/2024 2:00 PM [...] - 899 pg/mL 11/05/2024 11:49 AM EDT [facility] Blood Venous blood specimen / Unknown Venipuncture / Unknown 11/05/2024 11:01 AM EDT 11/05/2024 11:21 AM EDT us Elsa Razo VENDING MACHINE REFILLER LAB BLOOD ORDERABLES Fin al Result [facility] [address] [place] [address] * ECG Adult (Now - Performed in [...] QTC Interval 439 ms MUSE ECG P [place] 45 degrees MUSE ECG R [place] 15 degrees MUSE ECG T Wave [place] 42 degrees MUSE ECG Diagnosis Normal sinus rhythm MUSE ECG Diagnosis Normal ECG MUSE ECG Diagnosis MUSE ECG Diagnosis Confirmed by Orestes Stone ([id number]) on 11/05/2024 10:19:58 AM MUSE ECG 11/05/2024 10:1 0 AM EDT 11/05/2024 10:19 AM EDT Elsa Razo APRN ECG ORDERABLES Final Re sult Performing Organization Address [facility] Co de Phone Number MUSE ECG * Urine Cross Panel (11/03/2024 4:05 PM EDT) Extra Reflex urine culture not indicated 11/04/2024 2:02 AM EDT [facility] Comment: Previously prelim verified as Specimen [...] MD LAB URINE ORDERABLES Final R esult [facility] [address] [place] [address] * (ABNORMAL) Urinalysis with reflex microscopic (Culture NOT Included) (11/03/2024 4:05 PM EDT) Color, Urine Yellow LAB URINALYSIS - AUTOMATED METHOD 11/03/2024 4:23 PM EDT [facility] Clarity, Urine Clear LAB URINALYSIS - AUTOMATED METHOD 11/03/2024 4:23 PM EDT [facility] Spec [place], Urine 1.018 1.005 - 1.030 LAB URINALYSIS - AUTOMATED METHOD 11/03/2024 4:23 PM EDT [facility] pH, Urine 6.5 5.0 - 8.0 LAB URINALYSIS - AUTOMATED METHOD 11/03/2024 4:23 PM EDT [facility] Protein, Urine 30(A) Negative mg/dL LAB URINALYSIS - AUTOMATED METHOD 11/03/2024 4:23 PM EDT [facility] Glucose, Urine Negative Negative mg/dL LAB URINALYSIS - AUTOMATED METHOD 11/03/2024 4:23 PM EDT [facility] Ketones, Urine Negative Negative mg/dL LAB URINALYSIS - AUTOMATED METHOD 11/03/2024 4:23 PM EDT [facility] Blood, Urine Negative Negative LAB URINALYSIS - AUTOMATED METHOD 11/03/2024 4:23 PM EDT [facility] Bilirubin, Urine Negative Negative LAB URINALYSIS - AUTOMATED METHOD 11/03/2024 4:23 PM EDT [facility] Urobilinogen, Urine 2.0(A) 0.2 to 1.0 mg/dL LAB URINALYSIS - AUTOMATED METHOD 11/03/2024 4:23 PM EDT [facility] Leukocytes, Urine Negative Negative LAB URINALYSIS - AUTOMATED METHOD 11/03/2024 4:23 PM EDT [facility] Nitrite, Urine Negative Negative LAB URINALYSIS - AUTOMATED METHOD 11/03/2024 4:23 PM EDT [facility] Urine Urine specimen obtained by clean catch procedure / Unknown Non-blood Collection / Unknown 11/03/2024 4:05 PM EDT 11/03/2024 4:17 PM EDT us Tati Fam MD LAB URINE ORDERABLES Final R esult [facility] [address] [place] [address] * CT Head wo IV Contrast (11/03/2024 [...] at day 5 11/08/2024 4:01 PM EDT [facility] Blood Structure of antecubital vein / Unknown Venipuncture / Unknown 11/03/2024 3:24 PM EDT 11/03/2024 3:47 PM EDT Narrative [facility] - 11/08/2024 4:01 PM EDT Low blood volume submitted, results may be compromised us Tati Fam MD LAB MICROBIOLOGY - GENERAL O RDERABLES Final Result [facility] [address] [place] [address] * XR Chest 1 View (11/03/2024 3:00 [...] for all analytes 11/03/2024 5:17 PM EDT [facility] Swab Nasopharyngeal structure / Unknown Non-blood Collection / Unknown 11/03/2024 2:59 PM EDT 11/03/2024 3:17 PM EDT Narrative [facility] - 11/03/2024 5:17 PM EDT This [...] Respiratory PCR Panel is performed using the PolySuite ePlex instrument. This test is FDA approved for use with Nasopharyngeal swabs only. This test is used for clinical purposes. It should not be regarded as investigational or for research. The [facility] Clinical Microbiology Laboratory is certified under the Clinical Laboratory Improvement Amendments of 1988 (CLIA-88) as qualified to perform high complexity clinical laboratory testing. Tati Fam MD LAB MICROBIOLOGY - GENERAL O RDERABLES Final Result Performing Organization Address City/[facility]/[place] [address] * Lactic acid, venous (11/03/2024 2:25 PM EDT) [facility] Lactate, Venous, Whole Blood 0.9 0.5 - 2.2 mmol/L LAB HEMATOLOGY METHOD 11/03/2024 2:38 PM EDT [facility] Blood Venous blood specimen / Unknown Venipuncture / Unknown 11/03/2024 2:25 PM EDT 11/03/2024 2:36 PM EDT Result [facility] Tati Fam MD LAB BLOOD ORDERABLES Final R esult Performing Organization Address [facility] [place] [address] * Hepatitis C Antibody w/Reflex to HCV Quant PCR (09/29/2024 12:51 PM EDT) Pathologist [facility] Hepatitis C Antibody Negative Negative 09/29/2024 2:06 PM EDT [facility] Blood Venous blood specimen / Unknown Venipuncture / Unknown 09/29/2024 12:51 PM EDT 09/29/2024 1:22 PM EDT Virgen Vargas MD LAB BLOOD ORDERABLES Final Re sult Performing Organization Address City/[facility]/ZIP Co de Phone Number [facility] [address] [place] [address] from Last 3 Months or Most Recently Relevant to Health Maintenance Insurance [employer] Care Teams Transition Manager Relationship Specialty Start Date End Date Zhao Harris MD [address] [place] [address] PCP - General 12/03/20
--- OUTSIDE RECORDS SUMMARY | 2025-01-26 08:35 | XMS_ITS | Encounter Summary ---
Author Organization [facility] Address [address] [place] [address] Care Team Providers Care Front Office Associate Name Role Phone Zhao Harris MD Primary Care Provider [phone] Encounter Details Date Type Department Care Team [...] drink first t manav in the morning (EYE-SIDE FRAMER) to steady your nerves or to get [...] Upcoming Encounters Date Type Department Care Team ([facility] Contact Info) Description 02/02/2025 11:00 AM EDT Appointment [facility] A Interventional Radiology [address] [place] [address] 02/10/2025 8:30 AM EDT Clinical Support P[facility] CC Hematology/BMT and Cellular Therapy Program [address] [place] [address] [place] [address] 02/10/2025 9:00 AM EDT Office Visit [facility] CC Hematology/BMT and Cellular Therapy Program [address] [place] [phone] Elaina Boss, PA 800 [facility] [address] [place] [address] 02/10/2025 10:30 AM EDT Appointment [facility] 1 [address] [place] [address] 02/11/2025 2:00 PM EDT Appointment [facility] 1 [address] [place] [address] 02/12/2025 2:00 PM EDT Appointment [facility] 1 [address] [place] [address] 02/13/2025 2:00 PM EDT Appointment [facility] 1 [address] [place] [address] 02/14/2025 2:00 PM EDT Appointment [facility] 1 4 [place] [address] 03/10/2025 8:30 AM EDT Clinical Support [facility] Hematology/BMT and Cellular Therapy Program [address] [place] [address] [place] [address] 03/10/2025 9:00 AM EDT Office Visit [facility] CC Hematology/BMT and Cellular Therapy Program [address] [place] [address] [place] [phone] Isaura Wynn, LEVEL VIAL MARKER 800 [facility] [address] [place] [address] 03/10/2025 11:20 AM EDT Office Visit Pav CC Head, Neck & Respiratory 800 [facility], 2nd [place] [address] Elsa Razo, LEVEL VIAL MARKER [address] [place] [phone] documented as of this encounter Visit Diagnoses [...] as of this encounter Care Teams Front Office Associate Relationship Specialty Start Date End Date Zhao Harris MD 1210 [facility] [address] [place] [address] PCP - General 12/03/20 documented as of this encounter
--- OUTSIDE RECORDS SUMMARY | 2025-01-26 08:35 | XMS_ITS | Encounter Summary ---
Author Organization [facility] Address [address] [place] [address] Care Team Providers Care C D Area Supervisor Name Role Phone Zhao Harris MD Primary Care Provider [phone] Reason for Visit * Reason Comments Med Refill Encounter Details Date Type Department Care Team (Late st Contact Info) Description 09/22/2021 Refill [facility] [place] [address] [facility], [address] [place] [address] Regina Hill, ARAM [address] [place] [address] Coronary artery disease involving diomede heart with angina [...] Appointment [facility] A Interventional Radiology [address] [place] [phone] 02/10/2025 8:30 AM EDT Clinical Support P[facility] CC Hematology/BMT and Cellular Therapy Program 750 [facility] [place] [phone] 02/10/2025 9:00 AM EDT Office Visit PAV Hematology/BMT and Cellular Therapy Program [address] [phone] Elaina Boss, PA 800 [facility] [address] [place] [phone] 02/10/2025 10:30 AM EDT Appointment [facility] 1 [address] [place] [address] 02/11/2025 2:00 PM EDT Appointment [facility] 1 [address] [place] [address] 02/12/2025 2:00 PM EDT Appointment [facility] 1 [address] [place] [address] 02/13/2025 2:00 PM EDT Appointment [facility] 1 [address] [place] [address] 02/14/2025 2:00 PM EDT Appointment [facility] 1 [address] [place] [address] 03/10/2025 8:30 AM EDT Clinical Support [facility] Hematology/BMT and Cellular Therapy Program [address] [phone] 03/10/2025 9:00 AM EDT Office Visit [facility]AV Hematology/BMT and Cellular Therapy Program [address] [phone] Isaura Wynn, MACHINE DESIGN TEACHER [address] 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
--- OUTSIDE RECORDS SUMMARY | 2025-01-26 08:35 | XMS_ITS | Encounter Summary ---
Author Organization [facility] Address [address] [place] [address] Care Team Providers Care Power Reactor Supervisor Name Role Phone Zhao Hraris MD Primary Care Provider [phone] Encounter Details Date Type Department Care Team [...] drink first t manav in the morning (EYE-QC ANALYST) to steady your nerves or to [...] Upcoming Encounters Date Type Department Care Team ([facility] Contact Info) Description 02/02/2025 11:00 AM EDT Appointment P[facility] A Interventional Radiology [address] [place] [address] 02/10/2025 8:30 AM EDT Clinical Support [facility] CC Hematology/BMT and Cellular Therapy Program [address] [place] [address] [place] [address] 02/10/2025 9:00 AM EDT Office Visit [facility] CC Hematology/BMT and Cellular Therapy Program [address] [place] [phone] Elaina Boss, PA 800 [facility] [address] [place] [address] 02/10/2025 10:30 AM EDT Appointment [facility] 1 [address] [place] [address] 02/11/2025 2:00 PM EDT Appointment [facility] 1 [address] [place] [address] 02/12/2025 2:00 PM EDT Appointment [facility] 1 [address] [place] [address] 02/13/2025 2:00 PM EDT Appointment [facility] 1 [address] [place] [address] 02/14/2025 2:00 PM EDT Appointment [facility] 1 4 [place] [address] 03/10/2025 8:30 AM EDT Clinical Support [facility] Hematology/BMT and Cellular Therapy Program [address] [place] [address] [place] [address] 03/10/2025 9:00 AM EDT Office Visit [facility] CC Hematology/BMT and Cellular Therapy Program [address] [place] [address] [place] [phone] Isaura Wynn, FOUR CORNER STAYER MACHINE OPERATOR 800 [facility] [address]st [place] [address] 03/10/2025 11:20 AM EDT Office Visit Pav CC Head, Neck & Respiratory 800 [facility], 2nd [place] [address] Elsa Razo, FOUR CORNER STAYER MACHINE OPERATOR 800 [place] [phone] documented as of this encounter Visit Diagnoses [...] as of this encounter Care Teams Power Reactor Supervisor Relationship Specialty Start Date End Date Zhao Harris MD 1210 [facility] [address] [place] [address] PCP - General 12/03/20 documented as of this encounter
--- OUTSIDE RECORDS SUMMARY | 2025-01-26 08:35 | XMS_ITS | Encounter Summary ---
Author Organization [facility] Address [address] [place] [address] Care Team Providers Care Mechanist Name Role Phone Zhao Harris MD Primary Care Provider [phone] Encounter Details Date Type Department Care Team ([facility] st Contact Info) Description 11/05/2024 Results Follow-Up Pav CC Head, Neck & Respiratory 800 [facility], 2nd [place] [address] Elsa Razo, CERTIFIED MEDICATION AIDE [address] [place] [address] Social History Tobacco Use Types Packs/Day Years [...] first t manav in the morning (EYE-MANAGER STEEL) to steady your nerves or to get [...] Appointment [facility] A Interventional Radiology [address] [place] [address] 02/10/2025 8:30 AM EDT Clinical Support P[facility] Hematology/BMT and Cellular Therapy Program [address] [address] 02/10/2025 9:00 AM EDT Office Visit P[facility] Hematology/BMT and Cellular Therapy Program [address] [address] Elaina Boss, ARAM 800 [facility] [address] [place] [phone] 02/10/2025 10:30 AM EDT Appointment [facility] 1 [address] [place] [address] 02/11/2025 2:00 PM EDT Appointment [facility] 1 [address] [place] [address] 02/12/2025 2:00 PM EDT Appointment [facility] 1 [address] [place] [address] 02/13/2025 2:00 PM EDT Appointment [facility] 1 [address] [place] [address] 02/14/2025 2:00 PM EDT Appointment [facility] 1 [address] [place] [address] 03/10/2025 8:30 AM EDT Clinical Support [facility] Hematology/BMT and Cellular Therapy Program [address] [address] 03/10/2025 9:00 AM EDT Office Visit [facility] CC Hematology/BMT and Cellular Therapy Program [address] [address] Isaura Wynn, CERTIFIED MEDICATION AIDE 800 [facility] [address] [place] [address] 03/10/2025 11:20 AM EDT Office Visit Pav CC Head, Neck & Respiratory 800 [facility], 2nd [place] [address] Elsa Razo, CERTIFIED MEDICATION AIDE 800 [place] [phone] documented as of this encounter Visit Diagnoses [...] documented as of this encounter Care Teams Mechanist Relationship Specialty Start Date End Date Zhao Harris MD [address] [place] [address] PCP - General 12/03/20 documented as of this encounter
--- OUTSIDE RECORDS SUMMARY | 2025-01-26 08:35 | XMS_ITS | Encounter Summary ---
Author Organization [facility] Address [address] [place] [address] Care Team Providers Care Ophthalmic Lens Inspector Name Role Phone Zhao Harris MD Primary Care Provider [phone] Encounter Details Date Type Department Care Team [...] first t manav in the morning (EYE-MEDICAL DETAIL REPRESENTATIVE) to steady your nerves or to [...] Department Care Team ([facility] Contact Info) Description 02/02/2025 11:00 AM EDT Appointment PAV A Interventional Radiology [address] [place] [address] 02/10/2025 8:30 AM EDT Clinical Support [facility] CC Hematology/BMT and Cellular Therapy Program [address] [place] [address] [place] [address] 02/10/2025 9:00 AM EDT Office Visit P[facility] CC Hematology/BMT and Cellular Therapy Program [address] [place] [phone] Elaina Boss, PA 800 [facility] [address] [place] [address] 02/10/2025 10:30 AM EDT Appointment [facility] 1 [address] [place] [address] 02/11/2025 2:00 PM EDT Appointment [facility] 1 [address] [place] [address] 02/12/2025 2:00 PM EDT Appointment [facility] 1 [address] [place] [address] 02/13/2025 2:00 PM EDT Appointment [facility] 1 [address] [place] [address] 02/14/2025 2:00 PM EDT Appointment [facility] 1 4 [place] [address] 03/10/2025 8:30 AM EDT Clinical Support [facility] CC Hematology/BMT and Cellular Therapy Program [address] [place] [address] [place] [address] 03/10/2025 9:00 AM EDT Office Visit P[facility] CC Hematology/BMT and Cellular Therapy Program [address] [place] [address] [place] [phone] Isaura Wynn, SHACTOR HELPER 800 [facility] [address] [place] [address] 03/10/2025 11:20 AM EDT Office Visit Pav CC Head, Neck & Respiratory 800 [facility], 2nd [place] [address] Elsa Razo, SHACTOR HELPER 800 [place] [phone] documented as of this encounter Visit Diagnoses [...] documented as of this encounter Care Teams Ophthalmic Lens Inspector Relationship Specialty Start Date End Date Zhao Harris MD 1210 [facility] [address] [place] [address] PCP - General 12/03/20 documented as of this encounter
[2025-01-26 08:40] LABS: Platelet Count 3 K/mm3 (142-424); White Blood Count 0.6 K/mm3 (4.8-10.8)
[2025-01-26 08:44] LABS: Alanine Aminotransferase 25 U/L (12-78); Albumin Level 4.2 g/dl (3.5-5.0); Albumin/Globulin Ratio 1.4 (1.1-1.8); Alkaline Phosphatase 83 U/L (38-126); Anion Gap 17.8 mEq/L (5-15); Aspartate Amino Transferase 28 U/L (17-59); Bilirubin,Total 0.7 mg/dl (0.2-1.3); Blood Urea Nitrogen 11 mg/dl (9-20); Calcium 9.2 mg/dl (8.4-10.2); Carbon Dioxide 20 mmol/L (22.0-30.0); Chloride 108 mmol/L (98-107); Creatinine Clearance Estimated 86 mL/min (50-200); Creatinine,Serum 0.90 mg/dl (0.66-1.25); Estimated Glomerular Filt Rate 84 ml/min (>60); GFR (African American) 101 ML/MIN (>60); Globulin 3.1 g/dL (1.3-3.2); Glucose 115 mg/dl (74-100); Potassium 3.8 mmoL/L (3.5-5.1); Sodium 142 mmol/L (136-145); Total Protein,Serum 7.3 g/dl (6.3-8.2)
[2025-01-26 09:43] LABS: Hypochromasia 1+; Total Cells Counted 50
[2025-01-26 09:44] LABS: Anisocytosis 1+; Ovalocytes 1+
[2025-01-26] MEDS: ACETAMINOPHEN 325MG TAB 650 MG (13:16)
== END 2025-01-26 16:25 | disposition home or self-care (01) ==
LOC: INF 08:21
PROVIDERS: PCP Family Medicine; Visit Provider Internal Medicine Medical Oncology
DX: D46.9 Myelodysplastic syndrome, unspecified (principal)
CPT/HCPCS: 36415; 36430; 80053; 85007; 85025; 85027; 86850; J1642; P9016; P9034

== ENCOUNTER 2025-01-27 08:06 | Outpatient (CLI) | payer MEDICARE, SELFPAY ==
--- OUTSIDE RECORDS SUMMARY | 2024-12-01 08:41 | XMS_ITS | Encounter Summary ---
Author Organization [facility] Address [address] [place] [address] Care Team Providers Care Leveler Helper Name Role Phone Zhao Harris MD Primary Care Provider [phone] Reason for Referral * Consultation (Routine) - Closed Specialty Diagnoses / Procedures Referred By Contact Referred To Contact Interventional Radiology Diagnoses Myelodysplasia (myelodysplastic syndrome) (CMS/HCC) Mckinley Lee MD [address] [place] [address] Phone: tel:[phone] fax: [facility] Vascular Interventional Radiology [address] [place] [address] Phone: tel: Referral ID Status Reason Start Date Expiration Date V isits Requested Visits Authorized [id number] Closed Specialty Services Required 12/01/2024 06/02/2026 1 1 * Imaging (Routine) - Closed Specialty Diagnoses / Procedures Referred By Justice mcgee Referred To Contact Radiology Diagnoses Myelodysplasia (myelodysplastic syndrome) (CMS/HCC) Procedures IR Port Placement 5+ Years Consult to Interventional Radiology Isaura Wynn APRN 800 [facility] [address] [place] [address] Phone: tel: fax: Referral ID Status Reason Start Date Expiration Date Visits Re quested Visits Authorized [id number] Closed 11/18/2024 05/20/2026 1 1 Reason for Visit * Imaging (Routine) - Closed Specialty Diagnoses / Procedures Referred By Justice mcgee Referred To Contact Radiology Diagnoses Myelodysplasia (myelodysplastic syndrome) (CMS/HCC) Procedures IR Port Placement 5+ Years Consult to Interventional Radiology Isaura Wynn APRN 800 [facility] [address] [place] [address] Phone: tel: fax: Referral ID Status Reason Start Date Expiration Date Visits Re quested Visits Authorized [id number] Closed 11/18/2024 05/20/2026 1 1 Encounter Details Date Type Department Care Team (Latest Contact Info) Description 12/01/2024 8:41 AM EDT - 12/01/2024 11:59 PM EDT Hospital Encounter [facility] A Interventional Radiology [address] [place] [address] Gela Singer Thrombocytopenia (CMS/HCC) (Primary Dx); Myelodysplasia [...] first t manav in the morning (EYE-SENIOR SHAREPOINT ARCHITECT) to steady your nerves or to get [...] call: Vascular & Interventional Radiology Clinic at [phone] Sunday - Sunday 8:00 AM to 4:30 PM After hours, weekends, and holidays please call [phone] and ask for the Interventional Radiology provider/Resident on-call For Emergencies please go to the nearest Emergency Room or dial 911. Intervention Radiology Appointments: If you need to reschedule a procedure, please call our Schedulers at [phone], option 4. If you need to schedule or reschedule a clinic appointment, please call [phone]. [facility] Clinic Vascular and Interventional Radiology Clinic [facility] [address] [place] [address] documented in this encounter Medications at Time [...] daily. 90 tablet 3 09/11/2024 HYDROcodone-aceta minophen ([place]) 5-325 MG tablet Take 1 tablet by [...] flushed every 4 weeks. Call the [facility] Hematology Program Clinic if this is not set up. ?? What is used to flush it? It will be flushed with NS and Heparin flush. ?? Where will this happen? Either home health will come to you or you will go to the Infusion Center or the [facility]. Here is some contact information about [...] Radiology Brief Postprocedure Note Attending: Dr. Lee Can Filler: Dr. Hernandez Pre-operative Diagnosis: AML, need for [...] been discussed with the patient and/or their vendor representatives. All questions answered and they agree to [...] daily., Disp: 90 tablet, Rfl: 3 HYDROcodone-acetaminophen ([place]) 5-325 MG tablet, Take 1 tablet by [...] Upcoming Encounters Date Type Department Care Team ([facility] st Contact Info) Description 02/02/2025 11:00 AM EDT Appointment [facility] A Interventional Radiology [address] [place] [address] 02/10/2025 8:30 AM EDT Clinical Support P[facility] Hematology/BMT and Cellular Therapy Program [address] [address] 02/10/2025 9:00 AM EDT Office Visit [facility] Hematology/BMT and Cellular Therapy Program [address] [place] [address] Elaina Boss, ARAM 800 [facility] Cancer [address] [address] 02/10/2025 10:30 AM EDT Appointment [facility] Infusion Clinic 1 [address] [place] [address] 02/11/2025 2:00 PM EDT Appointment [facility] Infusion [facility] 1 [address] [place] [address] 02/12/2025 2:00 PM EDT Appointment [facility] Infusion [facility] 1 [address] [place] [address] 02/13/2025 2:00 PM EDT Appointment [facility]fusion [facility] 1 [address] [place] [address] 02/14/2025 2:00 PM EDT Appointment [facility] Infusion [facility] 1 [address] [place] [address] 03/10/2025 8:30 AM EDT Clinical Support [facility] Hematology/BMT and Cellular Therapy Program [address] [facility] [place] [address] 03/10/2025 9:00 AM EDT Office Visit [facility] Hematology/BMT and Cellular Therapy Program [address] [facility] [place] [address] Isaura Wynn, DAIRY LABORATORY TECHNICIAN 800 [facility] [address] [place] [address] 03/10/2025 11:20 AM EDT Office Visit Pav Head, Neck & Respiratory 800 [facility], 2nd [place] [address] Elsa Razo, DAIRY LABORATORY TECHNICIAN [address] [place] [address] Scheduled Referrals Name Type Priority Associated Diagnoses Order Schedule Discharge Ambulatory referral to [facility] Clinic Outpatient Referral Routine Myelodysplasia (myelodysplastic syndrome) [...] for port placement. New AML, starting chemotherapy. Sprayer Automatic Spray Machine: Mckinley Lee MD Secondary Glass Bulb Silverer: Dr. David Holt Rad Dose: 6 mGy [...] was placed supine on the fluoro table. [place] Dental Lab Technician ultrasonography revealed the vein to be compressible [...] with no evidence of complication. Device: 6 Urdu port catheter cut to length of 25 cm. COMPARISON: None. FINDINGS: Patent R IJV COMPLICATION: No. Procedure Note Mckinley Lee MD - 12/02/2024 CLINICAL INDICATION: 69M here for port placement. New AML, starting chemotherapy. Sprayer Automatic Spray Machine: Mckinley Lee MD Secondary Glass Bulb Silverer: Dr. David Holt Rad Dose: 6 mGy [...] patient was placed supine on the fluoro table.[place] [facility] Lab Technician ultrasonography revealed the vein to be compressible [...] well with no evidence ofcomplication. Device: 6 Urdu port catheter cut to length of 25 [...] MD on 12/02/2024 7:02 AM Isaura Wynn DAIRY LABORATORY TECHNICIAN IMG IR PROCEDURES Final Result * Transfuse [...] ORDERAB LES Final Result BLOOD BANK [address] [place] [address], * (ABNORMAL) WBC Differential (12/01/2024 9:39 AM EDT) Differential Type Automated LAB HEMATOLOGY METHOD 12/01/2024 11:33 AM EDT [facility] Neutrophils % 9 % LAB HEMATOLOGY METHOD 12/01/2024 11:33 AM EDT [facility] Lymphocytes % 84 % LAB HEMATOLOGY METHOD 12/01/2024 11:33 AM EDT [facility] Monocytes % 6 % LAB HEMATOLOGY METHOD 12/01/2024 11:33 AM EDT [facility] Eosinophils % 1 % LAB HEMATOLOGY METHOD 12/01/2024 11:33 AM EDT [facility] Basophils % 0 % LAB HEMATOLOGY METHOD 12/01/2024 11:33 AM EDT [facility] Immature Granulocytes % 0 % LAB HEMATOLOGY METHOD 12/01/2024 11:33 AM EDT [facility] Immature Granulocytes Absolute 0.00 0.00 - 0.06 10*3/uL LAB HEMATOLOGY METHOD 12/01/2024 11:33 AM EDT [facility] Neutrophils Absolute 0.06(LL) 1.60 - 6.10 10*3/uL LAB HEMATOLOGY METHOD 12/01/2024 11:33 AM EDT [facility] Lymphocytes Absolute 0.59(L) 1.20 - 3.90 10*3/uL LAB HEMATOLOGY METHOD 12/01/2024 11:33 AM EDT [facility] Monocytes Absolute 0.04(L) 0.30 - 0.90 10*3/uL LAB HEMATOLOGY METHOD 12/01/2024 11:33 AM EDT [facility] Basophils Absolute 0.00 0.00 - 0.10 10*3/uL LAB HEMATOLOGY METHOD 12/01/2024 11:33 AM EDT [facility] Eosinophils Absolute 0.01 0.00 - 0.50 10*3/uL LAB HEMATOLOGY METHOD 12/01/2024 11:33 AM EDT [facility] Blood Venous blood specimen / Unknown Venipuncture / Unknown 12/01/2024 9:39 AM EDT 12/01/2024 9:56 AM EDT us Virgen Vargas MD LAB BLOOD ORDERABLES Final Re sult [facility] [address] [place] [address] * (ABNORMAL) CBC (12/01/2024 9:39 AM EDT) WBC Count 0.64(LL) 3.70 - 10.30 10*3/uL LAB HEMATOLOGY METHOD 12/01/2024 4:21 PM EDT [facility] RBC Count 2.29(L) 4.60 - 6.10 10*6/uL LAB HEMATOLOGY METHOD 12/01/2024 4:21 PM EDT [facility] HGB 7.6(L) 13.7 - 17.5 g/dL LAB HEMATOLOGY METHOD 12/01/2024 4:21 PM EDT [facility] HCT 20.9(L) 40.0 - 51.0 % LAB HEMATOLOGY METHOD 12/01/2024 4:21 PM EDT [facility] Platelet Count 14(LL) 155 - 369 10*3/uL LAB HEMATOLOGY METHOD 12/01/2024 4:21 PM EDT [facility] MCV 91 79 - 98 fL LAB HEMATOLOGY METHOD 12/01/2024 4:21 PM EDT [facility] MCH 33.2(H) 26.0 - 32.0 pg LAB HEMATOLOGY METHOD 12/01/2024 4:21 PM EDT [facility] MCHC 36.4(H) 30.7 - 35.5 g/dL LAB HEMATOLOGY METHOD 12/01/2024 4:21 PM EDT [facility] RDW 17.7(H) 11.5 - 14.5 % LAB HEMATOLOGY METHOD 12/01/2024 4:21 PM EDT [facility] MPV LAB HEMATOLOGY METHOD 12/01/2024 4:21 PM EDT [facility] Comment:Not Measured nRBC 0.0 <=0.0 per 100 WBCs LAB HEMATOLOGY METHOD 12/01/2024 4:21 PM EDT [facility] Blood Venous blood specimen / Unknown Venipuncture / Unknown 12/01/2024 9:39 AM EDT 12/01/2024 9:56 AM EDT Mckinley Lee MD LAB BLOOD ORDERABLES Final R esult Performing Organization Address City/[facility]/ZIP Co de Phone Number [facility] [address] [place] [address] * Prepare Leukocyte Reduced Platelets: 1 Units, Irradiated (12/01/2024 8:52 AM EDT) [facility] Product Code [id number] BLOO D BANK Dispense Status Transfused BLOOD BANK Blood Expiration Date [id number] BLOOD BANK Unit Number [id number] B LOOD BANK Product Blood Type 6200 BLOOD BANK Blood Type A+ BLOOD BANK Blood Venous blood specimen / Unknown Mckinley Lee MD BLOOD BANK PRODUCT ORDERABLE S Final Result Performing Organization Address City/[facility] Co de Phone Number BLOOD BANK [address] documented in this encounter Visit Diagnoses [...] mL Right Neck lidocaine-EPINEPHrine (Xylocaine W/EPI) 1 %-1:558798 injection As needed, Starting on Sun12/01/24 at [...] documented as of this encounter Care Teams Leveler Helper Relationship Specialty Start Date End Date Zhao Harris MD [address] [place] [address] [place] [address] PCP - General 12/03/20 documented as of this encounter
--- OUTSIDE RECORDS SUMMARY | 2024-12-09 08:30 | XMS_ITS | Encounter Summary ---
Author Organization [facility] Address [address] [place] [address] Care Team Providers Care Immunochemist Name Role Phone Zhao Harris MD Primary Care Provider [phone] Reason for Visit * Reason Comments Labs Nurse Visit Encounter Details Date Type Department Care Team ([facility] Contact Info) Description 12/09/2024 8:30 AM EDT Clinical Support PAV CC Hematology/BMT and Cellular Therapy Program [address] [place] [address] [place] [address] Social History Tobacco Use Types Packs/Day Years [...] first t manav in the morning (EYE-MATERIAL COMBINER) to steady your nerves or to get [...] Upcoming Encounters Date Type Department Care Team ([facility] st Contact Info) Description 02/02/2025 11:00 AM EDT Appointment PAV A Interventional Radiology [address] [place] [address] 02/10/2025 8:30 AM EDT Clinical Support PAV CC Hematology/BMT and Cellular Therapy Program [address] [address] 02/10/2025 9:00 AM EDT Office Visit PAV Hematology/BMT and Cellular Therapy Program [address] [address] Elaina Boss, PA 800 [facility] [address] [place] [address] 02/10/2025 10:30 AM EDT Appointment P[facility] Infusion Clinic 1 744 [place] [address] 02/11/2025 2:00 PM EDT Appointment P[facility] Infusion Clinic 1 [address] [place] [address] 02/12/2025 2:00 PM EDT Appointment [facility] Infusion Clinic 1 [address] [place] [address] 02/13/2025 2:00 PM EDT Appointment [facility] Infusion Clinic 1 [address] [place] [address] 02/14/2025 2:00 PM EDT Appointment [facility] Infusion Clinic 1 [address] [place] [address] 03/10/2025 8:30 AM EDT Clinical Support PAV CC Hematology/BMT and Cellular Therapy Program [address] [place] [place] [address] 03/10/2025 9:00 AM EDT Office Visit PAV CC Hematology/BMT and Cellular Therapy Program 750 [facility] [address] Isaura Wynn, CAFETERIA MANAGER 800 [facility] 1st [place] [address] 03/10/2025 11:20 AM EDT Office Visit Pav CC Head, Neck & Respiratory 800 [facility], 2nd [place] [address] Elsa Razo, CAFETERIA MANAGER 800 [place] [phone] documented as of this encounter Visit Diagnoses [...] documented as of this encounter Care Teams Immunochemist Relationship Specialty Start Date End Date Zhao Harris MD [address] [place] [address] PCP - General 12/03/20 documented as of this encounter
--- OUTSIDE RECORDS SUMMARY | 2024-12-09 09:00 | XMS_ITS | Encounter Summary ---
Author Organization [facility] Address [address] [place] [address] Care Team Providers Care Optometrist/Practice Owner Name Role Phone Zhao Harris MD Primary Care Provider + [phone] Reason for Visit * Reason Comments Procedure * Genetic Testing (Routine) - Authorized Specialty Diagnoses / Procedures Referred By Justice mcgee Referred To Contact Lab Diagnoses Myelodysplasia (myelodysplastic syndrome) (CMS/HCC) Procedures Leukemia/Lymphoma - Immunophenotyping by Flow Cytometry Virgen Vargas MD [address] [facility] [address] [address] Phone: tel: fax: Referral ID Status Reason Start Date Expiration Date V isits Requested Visits Authorized [id number] Authorized 11/18/2024 05/20/2026 1 1 Encounter Details Date Type Department Care Team (Latest Contact Info) Description 12/09/2024 9:00 AM EDT Procedure Visit [facility] Hematology/BMT and Cellular Therapy Program [address] [place] [address] Kierra Novak APRN 800 [facility] [address] [address] Myelodysplasia (myelodysplastic syndrome) (CMS/HCC) Social [...] drink first t manav in the morning (EYE-NATURAL RESOURCE TECHNICIAN) to steady your nerves or to [...] yes Risks discussed: Bleeding, infection and pain [place] protocol: Procedure explained and questions answered to [...] Team ([facility] Contact Info) Description 02/02/2025 11:00 AM EDT Appointment [facility] [address] [place] [address] 02/10/2025 8:30 AM EDT Clinical Support [facility] Hematology/BMT and Cellular Therapy Program [address] [phone] 02/10/2025 9:00 AM EDT Office Visit [facility] Hematology/BMT and Cellular Therapy Program [address] [phone] Elaina Boss PA 800 [facility] [address] [place] [phone] 02/10/2025 10:30 AM EDT Appointment [facility] [address] [place] [address] 02/11/2025 2:00 PM EDT Appointment [facility] 1 [address] [place] [address] 02/12/2025 2:00 PM EDT Appointment [facility] 1 [address] [place] [address] 02/13/2025 2:00 PM EDT Appointment [facility] 1 [address] [place] [address] 02/14/2025 2:00 PM EDT Appointment [facility] 1 [address] [place] [address] 03/10/2025 8:30 AM EDT Clinical Support [facility] Hematology/BMT and Cellular Therapy Program [address] [place] [phone] 03/10/2025 9:00 AM EDT Office Visit [facility] Hematology/BMT and Cellular Therapy Program [address] [phone] Isaura Wynn, CHAIRMAN PRESIDENT AND CHIEF EXECUTIVE OFFICER 800 [facility] [address] [place] [phone] 03/10/2025 11:20 AM EDT Office Visit [facility] Head, Neck & Respiratory 800 [facility], [address]nd [place] [address] Elsa Razo, CHAIRMAN PRESIDENT AND CHIEF EXECUTIVE OFFICER [address] [place] [address] documented as of this encounter Procedures Procedure Name Priority Date/Time Associated Diagnosis Comments CYTOGENETICS TESTING, ONCOLOGY Routine 12/09/2024 10:15 AM EDT Myelodysplasia (myelodysplastic syndrome) ([facility]/HCC) CHROMOSOME KARYOTYPE, ONCOLOGY Routine 12/09/2024 10:15 AM EDT Myelodysplasia (myelodysplastic syndrome) ([facility]/HCC) LEUKEMIA/LYMPHOMA - IMMUNOPHENOTYPING BY FLOW CYTOMETRY Routine [...] Type Bone Marrow 12/16/2024 5:59 PM EDT [facility] Clinical Indication Acute Myeloid Leukemia 12/16/2024 5:59 PM EDT [facility] Specimen Adequacy Adequate 025 5:59 PM EDT [facility] Chromosome Analysis Result Giemsa-banded metaphase cells from unstimulated bone marrow cultures showed the following chromosome pattern: 43~45,X,-Y,t(4;1 4)(q21;q32),add( 5)(q13),add(16)( q11.2),-17,add(2 0)(q11.2)[cp13]/ 46,XY[7] 12/16/2024 5:59 PM EDT [facility] Interpretation Abnormal male chromosome [...] were observed on this patient's previous specimen [id number] and indicate persistent disease. Clinical correlation is recommended. Note: Per [employer] (CAP) requirement additional karyotypes were performed and charged due to the presence of clonal abnormalities. # cells counted = 20 # cells analyzed = 20 # cells karyotyped = 3 Band resolution: 400 12/16/2024 5:59 PM EDT [facility] Pathologist Signature Reviewed by: Mesfin Rae 12/16/2024 5:59 PM EDT [facility] Bone Marrow Non-blood Collection / Unknown 12/09/2024 10:15 AM EDT 12/09/2024 12:48 PM EDT us Virgen Vargas MD LAB CYTOGENETICS ORDERABLES F inal Result [facility] [address] [place] [address] * Leukemia/Lymphoma - Immunophenotyping by Flow Cytometry (12/09/2024 10:15 AM EDT) Clinical Indication AML 12/10/2024 8:51 AM T [facility] Flow Cytometry Interpretation APPROXIMATELY 23% POPULATION OF CD34 POSITIVE MYELOID BLASTS EXPRESSING CD34, CD117, CD13, CD33, HLA-DR, PARTIAL CD7, VARIABLE CD123, PARTIAL CD38, AND MODERATE CD45, SEE COMMENT, BONE MARROW ASPIRATE. 12/10/2024 8:51 AM EDT [facility] Comments Specimen viability is [...] light chains, CD123 12/10/2024 8:51 AM T [facility] Disclaimer This test was developed and its performance characteristics determined by the Immuno-Molecular Pathology Laboratory at the [facility]. It has not been cleared or [...] on the report. 12/10/2024 8:51 AM EDT [facility] Pathologist Signature Reviewed by: Gerry Jensen MD 12/10/2024 8:51 AM EDT [facility] MRD Indicated Test Not Indicated 8:51 AM EDT [facility] Bone Marrow Specimen from bone marrow obtained by aspiration / Unknown Non-blood Collection / Unknown 12/09/2024 10:15 AM EDT 12/09/2024 11:28 AM EDT us Virgen Vargas MD LAB FLOW CYTOMETRY ORDERABLES Final Result [facility] [address] [place] [address] * Bone marrow exam (12/09/2024 10:15 AM EDT) Case Report Bone Marrow Case: [id number] Authorizing Provider: Virgen Vargas MD Collected: 12/09/2024 1015 Ordering Location: [facility] Hematology/BMT and Received: 12/09/2024 1145 Cellular Therapy Program Pathologist: Gerry Jensen MD Specimens: A) - Bone Marrow Aspirate, right B) - Bone Marrow Biopsy, right C) - Peripheral Blood for Bone Marrow 12/19/2024 5:35 PM EDT [facility] Cytogenetics Report, Addendum Chromosome [...] were observed on this patient's previous specimen [facility]-[id number] and indicate persistent disease. 12/19/2024 5:35 PM EDT [facility] Addendum electronically signed by Gerry Jensen MD on 12/19/2024 at 1735 EDT Final Diagnosis PERIPHERAL BLOOD AND BONE MARROW, RIGHT POSTERIOR ILIAC CREST, (PERIPHERAL SMEAR, ASPIRATE SMEAR, AND CORE BIOPSY): - NORMOCELLULAR BONE MARROW WITH ERYTHROID HYPERPLASIA, VIRTUALLY ABSENT MATURING GRANULOPOIESIS, AND 14% BLASTS, SEE COMMENT. 12/19/2024 5:35 PM EDT [facility] at 1706 EDT Comment While by flow cytometric analysis blasts constitute 23% of cellularity, the majority of bone marrow cellularity consists of erythroid precursors that are removed by flow cytometry. This leads to the discrepancy between the percentage of blasts by flow cytometry and morphologic examination. Nonetheless, the findings are consistent with some residual disease. 12/19/2024 5:35 PM EDT [facility] Clinical Information AML s/p cycle 2 12/19/2024 5:35 PM EDT [facility] CBC and Differential PERIPHERAL [...] Platelets are decreased. 12/19/2024 5:35 PM EDT [facility] Bone Marrow Differential BONE MARROW DIFFERENTIAL: 400 cells Normal Patient Neutrophils 15-50 0 Metamyelocytes 4-19 0 Myelocytes 1-18 1 Promyelocytes 1-8 0 Blasts 0-2 14 Monocytes 0-5 3 Erythroid 16-38 76 Lymphocytes 3-24 1 Eosinophils 0-6 0 Basophils 0-2 0 Plasma cells 0-4 5 Other 12/19/2024 5:35 PM EDT [facility] Aspirate Smear The bone [...] predominantly normal morphology. 12/19/2024 5:35 PM T [facility] Core Biopsy The core biopsy is small and shows 5 mm of a normocellular bone marrow with a cellularity of approximately 30% that is predominantly comprised of erythroid precursors. Erythropoiesis is left-shifted, but maturing. Maturing granulopoiesis is virtually absent. Myeloid cells almost entirely consists of immature precursors. Megakaryocytes are decreased and exhibit predominantly normal morphology. 12/19/2024 5:35 PM T [facility] Flow Cytometry Interpretation Flow cytometric analysis shows approximately 23% population of CD34 positive myeloid blasts expressing CD34, CD117, CD13, CD33, HLA-DR, partial CD7, variable CD123, partial CD38, and moderate CD45 ([id number]). 12/19/2024 5:35 PM EDT [facility] Gross Description B. RIGHT A single specimen is received in formalin labeled bone marrow biopsy right posterior iliac crest and consists of 1 piece(s) of red/white tissue measuring 0.7 cm in length 0.2 cm in diameter. The specimen is submitted in to Histology for decalcification and routine processing. Cold Time: <1m 12/19/2024 5:35 PM EDT [facility] Note: A resident was involved in the service. I attest I examined the relevant preparations for the specimens and confirmed the diagnosis or interpretation. 12/19/2024 5:35 PM EDT [facility] Bone Marrow Peripheral blood [...] PATHOLOGY ORDERABLES Edit ed Result - Final [facility] [address] [place] [address] * BIOPSY BONE MARROW (12/09/2024 10:00 AM EDT) Narrative Kierra Novak APRN - 12/09/2024 10:00 AM EDT Kierra Novak APRN 12/09/2024 12:08 PM Biopsy bone marrow Date/Time: 12/09/2024 10:00 AM Performed by: Kierra Novak APRN Authorized by: Kierra Novak APRN Consent: Consent obtained: Written Consent given by: Patient Risks, benefits, and alternatives were discussed: yes Risks discussed: Bleeding, infection and pain [place] protocol: Procedure explained and questions answered to [...] Tolerated well, no immediate complications Kierra Novak CHAIRMAN PRESIDENT AND CHIEF EXECUTIVE OFFICER IN CLINIC/BEDSIDE ORDERAB LES Final Result * [...] ORDERABLE S Final Result Performing Organization Address [facility] Co de Phone Number BLOOD BANK [address] [place] [address] * Morphology (12/09/2024 8:45 AM EDT) Elliptocytes/ Ovalocytes Present LAB HEMATOLOGY METHOD 12/09/2024 11:45 AM EDT [facility] RBC Morphology Slide Reviewed LAB HEMATOLOGY METHOD 12/09/2024 11:45 AM EDT [facility] Platelet Estimate Platelet smear estimate consistent with automated count LAB HEMATOLOGY METHOD 12/09/2024 11:45 AM EDT [facility] Blood Venous blood specimen / Unknown Venipuncture / Unknown 12/09/2024 8:45 AM EDT 12/09/2024 8:56 AM EDT Virgen Vargas MD LAB BLOOD ORDERABLES Final Re sult [facility] [address] [place] [address], [place] [address] * (ABNORMAL) Manual Differential (12/09/2024 8:45 AM [...] METHOD 12/09/2024 11:45 AM EDT [facility] Eosinophils Absolute 0.00 0.00 - 0.50 10*3/uL LAB HEMATOLOGY METHOD 12/09/2024 11:45 AM EDT [facility] Basophils Absolute 0.00 0.00 - 0.10 10*3/uL LAB HEMATOLOGY METHOD 12/09/2024 11:45 AM EDT [facility] Blood Venous blood specimen / Unknown Venipuncture / Unknown 12/09/2024 8:45 AM EDT 12/09/2024 8:56 AM EDT Virgen Vargas MD LAB BLOOD ORDERABLES Final Re sult Performing Organization Address City/[facility]/ZIP Co de Phone Number [facility] [address] [place] [address] * Peripheral blood smear, pathologist interpretation (12/09/2024 8:45 AM EDT) Clinical Diagnosis, Peripheral Smear AML under therapy LAB HEMATOLOGY METHOD 12/09/2024 11:39 AM EDT [facility] Interpretation , Peripheral Smear Pancytopenia with rare circulating blast. A resident was involved in the service. I attest I examined the relevant preparations for the specimens and confirmed the diagnosis or interpretation. 12/09/2024 11:39 AM EDT [facility] Pathologist Signature, Peripheral Smear 12/09/2024 11:39 AM EDT [facility] Comment:Reviewed by: Martha Lopez MD LAB CP ASR DISCLAIMER Yes 12/09/2024 11:39 AM EDT [facility] Blood Venous blood specimen / Unknown Venipuncture / Unknown 12/09/2024 8:45 AM EDT 12/09/2024 8:56 AM EDT Virgen Vargas MD LAB PATHOLOGY ORDERABLES Terri l Result Performing Organization Address City/[facility]/ZIP Co de Phone Number [facility] [address] [place] [phone] * (ABNORMAL) Comprehensive metabolic panel (12/09/2024 8:45 AM EDT) Glucose, Plasma 103(H) 74 - 99 mg/dL 12/09/2024 9:33 AM EDT [facility] BUN, Plasma 9 8 - 23 mg/dL 12/09/2024 9:33 AM EDT [facility] Creatinine, Plasma 0.78 0.70 - 1.20 mg/dL 12/09/2024 9:33 AM EDT [facility] BUN/Creatinine Ratio 12 12/09/2024 9:33 AM EDT [facility] Sodium, Plasma 140 136 - 145 mmol/L 12/09/2024 9:33 AM EDT [facility] Potassium, Plasma 3.9 3.6 - 4.9 mmol/L 12/09/2024 9:33 AM EDT [facility] Chloride, Plasma 109(H) 97 - 107 mmol/L 12/09/2024 9:33 AM EDT [facility] CO2, Plasma 21(L) 22 - 29 mmol/L 12/09/2024 9:33 AM EDT [facility] Anion Gap 10 6 - 16 mmol/L 12/09/2024 9:33 AM EDT [facility] Total Calcium, Plasma 9.0 8.9 - 10.2 mg/dL 12/09/2024 9:33 AM EDT [facility] Total Protein 6.6 6.3 - 7.9 g/dL 12/09/2024 9:33 AM EDT [facility] Albumin, Plasma 3.9 3.5 - 5.2 g/dL 12/09/2024 9:33 AM EDT [facility] AST, Plasma 31 10 - 50 U/L 12/09/2024 9:33 AM EDT [facility] ALT, Plasma 37 10 - 50 U/L 12/09/2024 9:33 AM EDT [facility] Alkaline Phosphatase, Plasma 81 40 - 115 U/L 12/09/2024 9:33 AM EDT [facility] Total Bilirubin, Plasma 0.6 0.2 - 1.1 mg/dL 12/09/2024 9:33 AM EDT [facility] eGFRcr 96.5 mL/min/1.7 3m*2 12/09/2024 9:33 AM EDT [facility] Comment:Reported eGFRcr in m L/min/1.73m2 is based the CKD-EPI 2020 equation that does not use a race coefficient. Blood Venous blood specimen / Unknown Venipuncture / Unknown 12/09/2024 8:45 AM EDT 12/09/2024 9:01 AM EDT us Virgen Vargas MD LAB BLOOD ORDERABLES Final Re sult [facility] [address] [place] [address] * (ABNORMAL) CBC and differential (12/09/2024 8:45 AM EDT) WBC Count 0.68(LL) 3.70 - 10.30 10*3/uL LAB HEMATOLOGY METHOD 12/09/2024 11:45 AM EDT [facility] RBC Count 2.34(L) 4.60 - 6.10 10*6/uL LAB HEMATOLOGY METHOD 12/09/2024 11:45 AM EDT [facility] HGB 7.5(L) 13.7 - 17.5 g/dL LAB HEMATOLOGY METHOD 12/09/2024 11:45 AM EDT [facility] HCT 20.6(L) 40.0 - 51.0 % LAB HEMATOLOGY METHOD 12/09/2024 11:45 AM EDT [facility] Platelet Count 24(L) 155 - 369 10*3/uL LAB HEMATOLOGY METHOD 12/09/2024 11:45 AM EDT [facility] MCV 88 79 - 98 fL LAB HEMATOLOGY METHOD 12/09/2024 11:45 AM EDT [facility] MCH 32.1(H) 26.0 - 32.0 pg LAB HEMATOLOGY METHOD 12/09/2024 11:45 AM EDT [facility] MCHC 36.4(H) 30.7 - 35.5 g/dL LAB HEMATOLOGY METHOD 12/09/2024 11:45 AM EDT [facility] RDW 17.1(H) 11.5 - 14.5 % LAB HEMATOLOGY METHOD 12/09/2024 11:45 AM EDT [facility] MPV 9.2 8.8 - [...] MD LAB BLOOD ORDERABLES Final Re sult [facility] [address] [place] [address] documented in this encounter Visit Diagnoses Diagnosis [...] documented as of this encounter Care Teams Optometrist/Practice Owner Relationship Specialty Start Date End Date Zhao Harris MD [address] [place] [address] PCP - General 12/03/20 documented as of this encounter
--- OUTSIDE RECORDS SUMMARY | 2024-12-09 13:30 | XMS_ITS | Encounter Summary ---
Author Organization [facility] Address [address] [place] [address] Care Team Providers Care Vp Biology Name Role Phone Zhao Harris MD Primary Care Provider [phone] Reason for Visit * Reason Comments Follow-up Encounter Details Date Type Department Care Team (Latest Contact Info) Description 12/09/2024 1:30 PM EDT Clinical Support [facility] Cancer Acute Treatment Clinic 800 [facility], 2nd [place] [phone] Myelodysplasia (myelodysplastic syndrome) (CMS/HCC) (Primary Dx); Thrombocytopenia [...] drink first t manav in the morning (EYE-DAIRY HAND) to steady your nerves or to [...] Appointment PAV A Interventional Radiology [address] [place] [address] 02/10/2025 8:30 AM EDT Clinical Support [facility] Hematology/BMT and Cellular Therapy Program [address] [place] [address] 02/10/2025 9:00 AM EDT Office Visit PAV Hematology/BMT and Cellular Therapy Program [address] [place] [address] Elaina Boss, PA 800 [facility] [address] [place] [phone] 02/10/2025 10:30 AM EDT Appointment [facility] Infusion Clinic 1 744 [place] [address] 02/11/2025 2:00 PM EDT Appointment [facility] Infusion [facility] 1 744 [place] [address] 02/12/2025 2:00 PM EDT Appointment [facility] Infusion [facility] 1 744 [place] [phone] 02/13/2025 2:00 PM EDT Appointment [facility] Infusion [facility] 1 [address] [place] [address] 02/14/2025 2:00 PM EDT Appointment [facility] Infusion [facility] 1 7[address] [place] [phone] 03/10/2025 8:30 AM EDT Clinical Support [facility] Hematology/BMT and Cellular Therapy Program [address] [place] [address] 03/10/2025 9:00 AM EDT Office Visit PAV Hematology/BMT and Cellular Therapy Program [address] [place] [address] Isaura Wynn, FACILITY TECHNICIAN 800 [facility] [address] [place] [phone] 03/10/2025 11:20 AM EDT Office Visit Pav Head, Neck & Respiratory 800 [facility], 2nd [place] [address] Elsa Razo, FACILITY TECHNICIAN 800 [place] [address] documented as of this encounter Procedures Procedure Name Priority Date/Time Associated Diagnosis Comments PREPARE RBC Routine 12/09/2024 1:17 PM EDT Myelodysplasia (myelodysplastic syndrome) (CMS/HCC) Thrombocytopenia (CMS/HCC) documented in this encounter Results * Transfuse RBC, Irradiated (12/09/2024 3:57 PM EDT) us Kayli CHIU BLOOD TRANSFUSION ORDERA BLES Final Result * Prepare Leukocyte Reduced RBC: 1 Units, Irradiated (12/09/2024 1:17 PM EDT) Product Code [id number] CH BLOO D BANK Dispense Status Transfused BLOOD BANK Blood Expiration Date [id number] BLOOD BANK Unit Number [id number] B LOOD BANK Product Blood Type 9500 BLOOD BANK Blood Type O- BLOOD BANK Crossmatch Compatible BLOOD BANK Other Kayli CHIU BLOOD BANK PRODUCT ORDER VIKAS Final Result BLOOD BANK [address] documented in this encounter Visit Diagnoses [...] as of this encounter Care Teams Vp Biology Relationship Specialty Start Date End Date Zhao Harris MD On license of [facility] [place] [address] PCP - General 12/03/20 documented as of this encounter
--- OUTSIDE RECORDS SUMMARY | 2024-12-11 08:30 | XMS_ITS | Encounter Summary ---
Author Organization [facility] Address [address] 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) to steady your nerves or to get [...] [facility] st Contact Info) Description 02/02/2025 11:00 AM EDT Appointment [facility] A Interventional Radiology [address] [place] [address] 02/10/2025 8:30 AM EDT Clinical Support [facility] Hematology/BMT and Cellular Therapy Program [address] [phone] 02/10/2025 9:00 AM EDT Office Visit [facility] Hematology/BMT and Cellular Therapy Program [address] [phone] Elaina Boss, PA 800 [facility] [address] [place] [phone] 02/10/2025 10:30 AM EDT Appointment [facility]fusion [facility] 1 [address] [place] [address] 02/11/2025 2:00 PM EDT Appointment [facility] 1 [address] [place] [address] 02/12/2025 2:00 PM EDT Appointment [facility] 1 [address] [place] [address] 02/13/2025 2:00 PM EDT Appointment [facility] 1 [address] [place] [address] 02/14/2025 2:00 PM EDT Appointment [facility] 1 [address] [place] [address] 03/10/2025 8:30 AM EDT Clinical Support [facility] Hematology/BMT and Cellular Therapy Program 750 [facility] [place] [phone] 03/10/2025 9:00 AM EDT Office Visit [facility] Hematology/BMT and Cellular Therapy Program 750 [facility], [address] [place] [phone] Isaura Wynn, DIGITAL MARKETING INTERN 800 [facility] [address] [place] [phone] 03/10/2025 11:20 AM EDT Office Visit Pav CC Head, Neck & Respiratory 800 [facility], 2nd [place] [address] Elsa Razo, DIGITAL MARKETING INTERN [address] [place] [phone] documented as of this encounter Procedures Procedure Name Priority Date/Time Associated Diagnosis Comments MORPHOLOGY Routine 12/11/2024 8:38 AM EDT Myelodysplasia (myelodysplastic syndrome) (CMS/HCC) MANUAL DIFFERENTIAL Routine 12/11/2024 8 :38 AM EDT Myelodysplasia (myelodysplastic syndrome) (CMS/HCC) PERIPHERAL BLOOD SMEAR, PATHOLOGIST INTERPRETATION Routine 12/11/2024 8:38 AM EDT Myelodysplasia (myelodysplastic syndrome) (CMS/HCC) CBC WITH AUTO DIFFERENTIAL Routine 12/11/2024 8:38 AM EDT Myelodysplasia (myelodysplastic syndrome) (CMS/HCC) COMPREHENSIVE METABOLIC PANEL, PLASMA Routine 12/11/2024 8:38 AM EDT Myelodysplasia (myelodysplastic syndrome) (CMS/HCC) documented in this encounter Results * Morphology (12/11/2024 8:38 AM EDT) Elliptocytes/ Ovalocytes Present LAB HEMATOLOGY METHOD 12/11/2024 10:53 AM EDT [facility] RBC Morphology Slide Reviewed LAB HEMATOLOGY METHOD 12/11/2024 10:53 AM EDT [facility] Platelet Estimate Platelet smear estimate consistent with automated count LAB HEMATOLOGY METHOD 12/11/2024 10:53 AM EDT [facility] Blood Venous blood specimen / Unknown Venipuncture / Unknown 12/11/2024 8:38 AM EDT 12/11/2024 8:50 AM EDT Virgen Vargas MD LAB BLOOD ORDERABLES Final Re sult Performing Organization Address City/[facility]/ZIP Co de Phone Number [facility] [address] [place] [address] * Peripheral blood smear, pathologist interpretation (12/11/2024 8:38 AM EDT) Clinical Diagnosis, Peripheral Smear History of acute myeloid leukemia (recent bone marrow dated 12/09/2024 with 14% blasts) LAB HEMATOLOGY METHOD 12/11/2024 4:46 PM EDT [facility] Interpretation , Peripheral Smear Marked leukopenia with neutropenia and 1% circulating blasts. Dysplastic neutrophils (hypogranular) are noted. Moderate anemia and marked thrombocytopen ia. 12/11/2024 4:46 PM EDT [facility] Pathologist Signature, Peripheral Smear 12/11/2024 4:46 PM EDT [facility] Comment:Reviewed by: Omar Peralta MD Blood Venous blood specimen / Unknown Venipuncture / Unknown 12/11/2024 8:38 AM EDT 12/11/2024 8:50 AM EDT Virgen Vargas MD LAB PATHOLOGY ORDERABLES Terri l Result Performing Organization Address City[facility]/ZIP Co de Phone Number [facility] [address] [place] [address] * (ABNORMAL) Manual Differential (12/11/2024 8:38 AM EDT) Blasts % 1 % LAB HEMATOLOGY METHOD 12/11/2024 10:53 AM EDT [facility] Promyelocytes % 0 % LAB HEMATOLOGY METHOD 12/11/2024 10:53 AM EDT [facility] Myelocytes % 0 % LAB HEMATOLOGY METHOD 12/11/2024 10:53 AM EDT [facility] Metamyelocytes % 0 % LAB HEMATOLOGY METHOD 12/11/2024 10:53 AM EDT [facility] Neutrophils % 4 % LAB HEMATOLOGY METHOD 12/11/2024 10:53 AM EDT [facility] Lymphocytes % 90 % LAB HEMATOLOGY METHOD 12/11/2024 10:53 AM EDT [facility] Reactive Lymphocytes % 3 % LAB HEMATOLOGY METHOD 12/11/2024 10:53 AM EDT [facility] Monocytes % 2 % LAB HEMATOLOGY METHOD 12/11/2024 10:53 AM EDT [facility] Eosinophils % 0 % LAB HEMATOLOGY METHOD 12/11/2024 10:53 AM EDT [facility] Basophils % 0 % LAB HEMATOLOGY METHOD 12/11/2024 10:53 AM EDT [facility] Blasts Absolute 0.01 10*3/UL LAB HEMATOLOGY METHOD 12/11/2024 10:53 AM EDT [facility] Promyelocytes Absolute 0.00 10*3/uL LAB HEMATOLOGY METHOD 12/11/2024 10:53 AM EDT [facility] Myelocytes Absolute 0.00 10*3/uL LAB HEMATOLOGY METHOD 12/11/2024 10:53 AM EDT [facility] Metamyelocytes Absolute 0.00 10*3/uL LAB HEMATOLOGY METHOD 12/11/2024 10:53 AM EDT [facility] Neutrophils Absolute 0.02(LL) 1.60 - 6.10 10*3/uL LAB HEMATOLOGY METHOD 12/11/2024 10:53 AM EDT [facility] Lymphocytes Absolute 0.55(L) 1.20 - 3.90 10*3/uL LAB HEMATOLOGY METHOD 12/11/2024 10:53 AM EDT [facility] Reactive Lymphocytes Absolute 0.02 10*3/uL LAB HEMATOLOGY METHOD 12/11/2024 10:53 AM EDT [facility] Monocytes Absolute 0.01(L) 0.30 - 0.90 10*3/uL LAB HEMATOLOGY METHOD 12/11/2024 10:53 AM EDT [facility] Eosinophils Absolute 0.00 0.00 - 0.50 10*3/uL LAB HEMATOLOGY METHOD 12/11/2024 10:53 AM EDT [facility] Basophils Absolute 0.00 0.00 - 0.10 10*3/uL LAB HEMATOLOGY METHOD 12/11/2024 10:53 AM EDT [facility] Blood Venous blood specimen / Unknown Venipuncture / Unknown 12/11/2024 8:38 AM EDT 12/11/2024 8:50 AM EDT us Virgen Vargas MD LAB BLOOD ORDERABLES Final Re sult [facility] [address] [place] [address] * (ABNORMAL) CBC and differential (12/11/2024 8:38 AM EDT) WBC Count 0.61(LL) 3.70 - 10.30 10*3/uL LAB HEMATOLOGY METHOD 12/11/2024 10:54 AM EDT [facility] RBC Count 2.80(L) 4.60 - 6.10 10*6/uL LAB HEMATOLOGY METHOD 12/11/2024 10:54 AM EDT [facility] HGB 8.9(L) 13.7 - 17.5 g/dL LAB HEMATOLOGY METHOD 12/11/2024 10:54 AM EDT [facility] HCT 25.1(L) 40.0 - 51.0 % LAB HEMATOLOGY METHOD 12/11/2024 10:54 AM EDT [facility] Platelet Count 11(LL) 155 - 369 10*3/uL LAB HEMATOLOGY METHOD 12/11/2024 10:54 AM EDT [facility] MCV 90 79 - 98 fL LAB HEMATOLOGY METHOD 12/11/2024 10:54 AM EDT [facility] MCH 31.8 26.0 - 32.0 pg LAB HEMATOLOGY METHOD 12/11/2024 10:54 AM EDT [facility] MCHC 35.5 30.7 - 35.5 g/dL LAB HEMATOLOGY METHOD 12/11/2024 10:54 AM EDT [facility] RDW 16.2(H) 11.5 - 14.5 % LAB HEMATOLOGY METHOD 12/11/2024 10:54 AM EDT [facility] MPV 12.3 8.8 - 12.5 fL LAB HEMATOLOGY METHOD 12/11/2024 10:54 AM EDT [facility] nRBC 4.9(H) <=0.0 per 100 WBCs LAB HEMATOLOGY METHOD 12/11/2024 10:54 AM EDT [facility] Differential Type Manual LAB HEMATOLOGY METHOD 12/11/2024 10:54 AM EDT [facility] Blood Venous blood specimen / Unknown Venipuncture / Unknown 12/11/2024 8:38 AM EDT 12/11/2024 8:50 AM EDT Narrative [facility] - 12/11/2024 10:54 AM EDT Therapeutic [...] MD LAB BLOOD ORDERABLES Final Re sult [facility] [address] [place] [address] * (ABNORMAL) Comprehensive Metabolic Panel, Plasma (12/11/2024 8:38 AM EDT) Glucose, Plasma 105(H) 74 - 99 mg/dL 12/11/2024 9:19 AM EDT [facility] BUN, Plasma 10 8 - 23 mg/dL 12/11/2024 9:19 AM EDT [facility] Creatinine, Plasma 0.75 0.70 - 1.20 mg/dL 12/11/2024 9:19 AM EDT [facility] BUN/Creatinine Ratio 13 12/11/2024 9:19 AM EDT [facility] Sodium, Plasma 140 136 - 145 mmol/L 12/11/2024 9:19 AM EDT [facility] Potassium, Plasma 4.1 3.6 - 4.9 mmol/L 12/11/2024 9:19 AM EDT [facility] Chloride, Plasma 110(H) 97 - 107 mmol/L 12/11/2024 9:19 AM EDT [facility] CO2, Plasma 22 22 - 29 mmol/L 12/11/2024 9:19 AM EDT [facility] Anion Gap 8 6 - 16 mmol/L 12/11/2024 9:19 AM EDT [facility] Total Calcium, Plasma 9.1 8.9 - 10.2 mg/dL 12/11/2024 9:19 AM EDT [facility] Total Protein 6.9 6.3 - 7.9 g/dL 12/11/2024 9:19 AM EDT [facility] Albumin, Plasma 4.0 3.5 - 5.2 g/dL 12/11/2024 9:19 AM EDT [facility] AST, Plasma 38 10 - 50 U/L 12/11/2024 9:19 AM EDT [facility] ALT, Plasma 40 10 - 50 U/L 12/11/2024 9:19 AM EDT [facility] Alkaline Phosphatase, Plasma 86 40 - 115 U/L 12/11/2024 9:19 AM EDT [facility] Total Bilirubin, Plasma 0.6 0.2 - 1.1 mg/dL 12/11/2024 9:19 AM EDT [facility] eGFRcr 97.7 mL/min/1.7 3m*2 12/11/2024 9:19 AM EDT [facility] Comment:Reported eGFRcr in m L/min/1.73m2 is based the CKD-EPI 2020 equation that does not use a race coefficient. Blood Venous blood specimen / Unknown Venipuncture / Unknown 12/11/2024 8:38 AM EDT 12/11/2024 8:50 AM EDT us Virgen Vargas MD LAB BLOOD ORDERABLES Final Re sult [facility] [address] [place] [address] documented in this encounter Visit Diagnoses Diagnosis Myelodysplasia (myelodysplastic syndrome) (CMS/HCC) Myelodysplastic syndrome, unspecified documented in this encounter Additional Health Concerns Assessment Noted Time PHQ-9 Depression Total Score: 0 09/11/19 25 9:15 AM EST A fall risk assessment has been complete d for the patient 12/11/2024 2:38 PM EDT A Body Mass Index follow-up plan has been documented for the patient 12/11/2024 3:05 PM EDT documented as of this encounter Care Teams Torpedo Worker Relationship Specialty Start Date End Date Zhao Harris MD [address] [place] [address] PCP - General 12/03/20 documented as of this encounter
--- OUTSIDE RECORDS SUMMARY | 2024-12-11 09:00 | XMS_ITS | Encounter Summary ---
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) Virgen Vargas MD 800 [facility] Cancer [address] [address] Phone: tel: fax: Referral ID Status Reason Start Date Expiration Date V isits Requested Visits Authorized [id number] Closed Specialty Services Required 12/11/2024 06/12/2026 1 1 Encounter Details Date Type Department Care Team (Latest Contact Info) Description 12/11/2024 9:00 AM EDT Office Visit [facility] Hematology/BMT and Cellular Therapy Program [address] [place] [phone] Virgen Vargas MD 800 [facility] Cancer [address] [address] Myelodysplasia (myelodysplastic syndrome) (CMS/HCC) (Primary [...] drink first t manav in the morning (EYE-ASPHALT BLENDER) to steady your nerves or to [...] a preserved mata-T cell profile with a CD4:XY3yvaja of 2.7:1. Polyclonal B-cells (3%) and a small plasma cell population (0.6%) were also identified. Cytogenetics: Normal. Molecular Testing: PCR for NPM1 and FLT3 mutations are negative. Next-generation sequencing (NGS) myeloid panel: ASXL1 - p.[id number] - VAF 25% TP53 - p.Iyt141Otw - VAF 36% U2AF1 - p.[id number] - VAF 33% 10/20/2024- started treatment with [...] a durable remission in the context of IH35-kbeqktn AML. The third, and most promising, option would be enrollment in a clinical trial, ideally one that targets TP53- mutant disease or incorporates novel agents. Unfortunately, there are no active trials available locally or at [facility], but I have reached out to Dr. Fernandes at [facility] to explore any opportunities there. [...] in completing the documentation. Virgen Vargas M.D. Roof Painter Division of Hematology/BMT [facility] [1] Current Outpatient Medications: acyclovir (Zovirax) [...] constipation., Disp: 30 tablet, Rfl: 3 HYDROcodone-acetaminophen ([place]) 5-325 MG tablet, Take 1 tablet by [...] Appointment P[facility] A Interventional Radiology [address] [place] [address] 02/10/2025 8:30 AM EDT Clinical Support [facility] Hematology/BMT and Cellular Therapy Program [address] [address] 02/10/2025 9:00 AM EDT Office Visit [facility] Hematology/BMT and Cellular Therapy Program [address] [address] Elaina Boss, PA 800 [facility] [address] [place] [address] 02/10/2025 10:30 AM EDT Appointment [facility] Infusion [facility] 1 [address] [place] [address] 02/11/2025 2:00 PM EDT Appointment [facility] Infusion [facility] 1 [address] [place] [address] 02/12/2025 2:00 PM EDT Appointment [facility] 1 [address] [place] [address] 02/13/2025 2:00 PM EDT Appointment [facility] 1 [address] [place] [address] 02/14/2025 2:00 PM EDT Appointment [facility] Infusion [facility] 1 [address] [place] [address] 03/10/2025 8:30 AM EDT Clinical Support [facility] Hematology/BMT and Cellular Therapy Program [address] [address] 03/10/2025 9:00 AM EDT Office Visit [facility] Hematology/BMT and Cellular Therapy Program [address] [address] Isaura Wynn, ESTRELLA 800 [facility] [address] [place] [phone] 03/10/2025 11:20 AM EDT Office Visit Pav CC Head, Neck & Respiratory 800 [facility], 2nd [place] [address] Elsa Razo, WEIGHT AND BALANCE CONTROL AGENT [address] [place] [address] documented as of this encounter Visit Diagnoses [...] documented as of this encounter Care Teams Supervisor Grove Relationship Specialty Start Date End Date Zhao Harris MD [address] [address] PCP - General 12/03/20 documented as of this encounter
--- OUTSIDE RECORDS SUMMARY | 2024-12-11 13:00 | XMS_ITS | Encounter Summary ---
Author Organization [facility] Address [address] [place] [address] Care Team Providers Care Tire Bladder Maker Name Role Phone Zhao Harris MD Primary Care Provider [phone] Encounter Details Date Type Department Care Team (Latest Contact Info) Description 12/11/2024 1:00 PM EDT Clinical Support [facility] Cancer Acute Treatment [facility] [address] , [address] [place] [address] Myelodysplasia (myelodysplastic syndrome) (CMS/HCC) (Primary Dx); Thrombocytopenia [...] drink first t manav in the morning (EYE-BREED TO WEAN PRODUCTION TECHNICIAN) to steady your nerves or to [...] Appointment [facility] A Interventional Radiology [address] [place] [address] 02/10/2025 8:30 AM EDT Clinical Support [facility] Hematology/BMT and Cellular Therapy Program [address] [address] 02/10/2025 9:00 AM EDT Office Visit [facility] Hematology/BMT and Cellular Therapy Program [address] [phone] Elaina Boss, PA 800 [facility] [address] [place] [phone] 02/10/2025 10:30 AM EDT Appointment [facility]fusion [facility] 1 [address] [place] [address] 02/11/2025 2:00 PM EDT Appointment [facility] 1 [address] [place] [address] 02/12/2025 2:00 PM EDT Appointment [facility] 1 [address] [place] [address] 02/13/2025 2:00 PM EDT Appointment [facility] 1 [address] [place] [address] 02/14/2025 2:00 PM EDT Appointment [facility] 1 [address] [place] [address] 03/10/2025 8:30 AM EDT Clinical Support [facility] Hematology/BMT [facility] Cellular Therapy Program [address] [address] 03/10/2025 9:00 AM EDT Office Visit [facility] Hematology/BMT and Cellular Therapy Program [address] [address] Isaura Wynn, PASTRY ASSISTANT 800 [facility] [address] [place] [phone] 03/10/2025 11:20 AM EDT Office Visit [facility]ck [facility] Respiratory 800 [facility], 2nd [place] [phone] Elsa Razo, PASTRY ASSISTANT [address] [place] [address] documented as of this encounter [...] LAB HEMATOLOGY METHOD 12/11/2024 2:37 PM EDT [facility] Blood Venous blood specimen / Unknown Venipuncture / Unknown 12/11/2024 2:04 PM EDT 12/11/2024 2:34 PM EDT Glenroy Kim MD LAB BLOOD ORDERABLES Fi nal Result [facility] 800 [place] [address] * Prepare Leukocyte Reduced Platelets: 1 Units (12/11/2024 12:57 PM EDT) Product Code S2325B93 CH BLOO D BANK Dispense Status Transfused BLOOD BANK Blood Expiration Date [id number] BLOOD BANK Unit Number [id number] CH B LOOD BANK Product Blood Type 6200 BLOOD BANK Blood Type A+ CH BLOOD BANK Blood Venous blood specimen / Unknown Kayli CHIU BLOOD BANK PRODUCT ORDER VIKAS Final Result BLOOD BANK [address] documented in this encounter Visit Diagnoses [...] documented as of this encounter Care Teams Tire Bladder Maker Relationship Specialty Start Date End Date Zhao Harris MD [address] [place] [address] PCP - General 12/03/20 documented as of this encounter
--- OUTSIDE RECORDS SUMMARY | 2024-12-11 14:30 | XMS_ITS | Encounter Summary ---
Author Organization [facility] Address [address] [place] [address] Care Team Providers Care Washhouse Hand Name Role Phone Zhao Harris MD Primary Care Provider [phone] Reason for Visit * Consultation (Routine) - Closed Specialty Diagnoses / Procedures Referred By Contact Referred To Contact Interventional Radiology Diagnoses Myelodysplasia (myelodysplastic syndrome) (CMS/HCC) Mckinley Lee MD [address] [place] [address] Phone: tel:[phone] fax:[phone] [facility] Vascular Interventional Radiology [address] [facility] Room [address] [place] [phone] Phone: tel: Referral ID Status Reason Start Date Expiration Date V isits Requested Visits Authorized [id number] Closed Specialty Services Required 12/01/2024 06/02/2026 1 1 Encounter Details Date Type Department Care Team (Latest Contact Info) Description 12/11/2024 2:30 PM EDT Office Visit [facility] Vascular Interventional Radiology [address] [facility] Room [address] [place] [phone] Judy Leung APRN, SHEEBA [address] [place] [address] Port-A-Cath in place (Primary Dx); [...] drink first t manav in the morning (EYE-MOBILE LAB TECHNICIAN) to steady your nerves or [...] Orders * Progress Notes - Judy Leung, CLOTH BEAMER, DNP - 12/11/2024 2:30 PM EDT Images [...] been accessed. He is being referred to [facility] for possible trials. Allergies: Patient has no [...] for port placement. New AML, starting chemotherapy. Document Management Consultant: Mckinley Lee MD Secondary Customer Care Representative: Dr. David Holt Rad Dose: 6 mGy [...] was placed supine on the fluoro table. Sweeper Cleaner Industrial ultrasonography revealed the vein to be compressible [...] with no evidence of complication. Device: 6 Nicaraguan port catheter cut to length of 25 [...] placement on 12/01/24 - Being referred to [facility] for possible trials PLAN: - Port accessed in clinic today and functioning well - Denies fever or chills; no drainage, swelling at site - Instructed to call with any signs of infection or malfunction - Return to [facility] PRN Medical Decision Making/Plan: Diagnoses and all orders for this visit: Port-A-Cath in place - heparin flush (porcine) 100 UNIT/ML injection 500 Units Myelodysplasia (myelodysplastic syndrome) (CMS/HCC) - Discharge Ambulatory referral to [facility] Clinic I spent 35 minutes on [...] daily., Disp: 90 tablet, Rfl: 3 HYDROcodone-acetaminophen ([place]) 5-325 MG tablet, Take 1 tablet by [...] Appointment PAV A Interventional Radiology [address] [place] [address] 02/10/2025 8:30 AM EDT Clinical Support [facility] Hematology/BMT and Cellular Therapy Program [address] [place] [address] [place] [address] 02/10/2025 9:00 AM EDT Office Visit [facility] Hematology/BMT and Cellular Therapy Program [address] [place] [address] [place] [address] Elaina Boss, PA 800 [facility] Cancer [address] [phone] 02/10/2025 10:30 AM EDT Appointment [facility] 1 [address] [place] [phone] 02/11/2025 2:00 PM EDT Appointment [facility] 1 [address] [place] [address] 02/12/2025 2:00 PM EDT Appointment [facility] 1 [address] [place] [phone] 02/13/2025 2:00 PM EDT Appointment [facility] 1 [address] [place] [phone] 02/14/2025 2:00 PM EDT Appointment [facility] 1 [address] [place] [phone] 03/10/2025 8:30 AM EDT Clinical Support [facility] CC Hematology/BMT and Cellular Therapy Program [address] [phone] 03/10/2025 9:00 AM EDT Office Visit [facility] CC Hematology/BMT and Cellular Therapy Program [address] [phone] Isaura Wynn, CLOTH BEAMER 800 [facility] Cancer [address] [phone] 03/10/2025 11:20 AM EDT Office Visit Pav CC Head, Neck & Respiratory 800 [facility], 2nd [place] [phone] Elsa Razo, CLOTH BEAMER [address] [place] [phone] documented as of this encounter Procedures Procedure [...] 12/12/2024 8:43 AM EDT us Judy Leung CLOTH BEAMER, DNP LAB BLOOD BANK TEST ORDE MAGNO Final Result BLOOD BANK [address] [place] [address], documented in this encounter Visit Diagnoses Diagnosis [...] documented as of this encounter Care Teams Washhouse Hand Relationship Specialty Start Date End Date Zhao Harris MD [address] [place] [address] PCP - General 12/03/20 documented as of this encounter
--- OUTSIDE RECORDS SUMMARY | 2024-12-16 08:00 | XMS_ITS | Encounter Summary ---
Author Organization [facility] Address [address] [place] [address] Care Team Providers Care Water Supervisor Name Role Phone Zhao Harris MD Primary Care Provider [phone] Reason for Visit * Reason Comments Labs Nurse Visit Encounter Details Date Type Department Care Team ([facility] Contact Info) Description 12/16/2024 8:00 AM EDT Clinical Support PAV CC Hematology/BMT and Cellular Therapy Program [address] [place] [address] [place] [address] Social History Tobacco Use Types Packs/Day Years [...] drink first t manav in the morning (EYE-ACOUSTICAL ENGINEER) to steady your nerves or to [...] PAV A Interventional Radiology [address] [place] [address] 02/10/2025 8:30 AM EDT Clinical Support PAV CC Hematology/BMT and Cellular Therapy Program [address] [address] 02/10/2025 9:00 AM EDT Office Visit PAV Hematology/BMT and Cellular Therapy Program [address] [address] Elaina Boss, PA 800 [facility] [address] [place] [address] 02/10/2025 10:30 AM EDT Appointment [facility] Infusion [facility] 1 7[address] [place] [address] 02/11/2025 2:00 PM EDT Appointment [facility] Infusion [facility] 1 [address] [place] [address] 02/12/2025 2:00 PM EDT Appointment [facility] Infusion [facility] 1 [address] [place] [address] 02/13/2025 2:00 PM EDT Appointment [facility] Infusion [facility] 1 [address] [place] [address] 02/14/2025 2:00 PM EDT Appointment [facility] Infusion [facility] 1 [address] [place] [address] 03/10/2025 8:30 AM EDT Clinical Support PAV CC Hematology/BMT and Cellular Therapy Program [address] [place] [address] 03/10/2025 9:00 AM EDT Office Visit PAV CC Hematology/BMT and Cellular Therapy Program 750 [facility] [place] [phone] Isaura Wynn, FLIGHT CREW SCHEDULER 800 [facility] [address]st [place] [address] 03/10/2025 11:20 AM EDT Office Visit Pav CC Head, Neck & Respiratory 800 [facility], 2nd [place] [phone] Elsa Razo, FLIGHT CREW SCHEDULER 800 [place] [address] documented as of this encounter Visit Diagnoses [...] documented as of this encounter Care Teams Water Supervisor Relationship Specialty Start Date End Date Zhao Harris MD [address] [place] [address] [phone] PCP - General 12/03/20 documented as of this encounter
--- OUTSIDE RECORDS SUMMARY | 2024-12-16 08:30 | XMS_ITS | Encounter Summary ---
Author Organization [facility] Address [address] [place] [address] Care Team Providers Care Shipping Receiving Manager Name Role Phone Zhao Harris MD Primary Care Provider [phone] Reason for Referral * Genetic Testing (Routine) - Authorized Specialty Diagnoses / Procedures Referred By Justice t Referred To Contact Lab Diagnoses Myelodysplasia (myelodysplastic syndrome) (CMS/HCC) Procedures Leukemia/Lymphoma - Immunophenotyping by Flow Cytometry Viregn Vargas MD [address] [facility] [address] [address] Phone: tel: fax: Referral ID Status Reason Start Date Expiration Date V isits Requested Visits Authorized [id number] Authorized 12/18/2024 06/19/2026 1 1 * Genetic Testing (Routine) - Authorized Specialty Diagnoses / Procedures [facility] Referred To Contact Lab Diagnoses Myelodysplasia (myelodysplastic syndrome) (CMS/HCC) Procedures Bone marrow exam Virgen Vargas MD [address] [facility] Cancer [address] [address] Phone: tel: fax: Referral ID Status Reason Start Date Expiration Date V isits Requested Visits Authorized [id number] Authorized 12/18/2024 06/19/2026 1 1 Reason for Visit * Reason Comments Acute Myeloid Leukemia Encounter Details Date Type Department Care Team (Latest Contact Info) Description 12/16/2024 8:30 AM EDT Office Visit [facility] CC Hematology/BMT and Cellular Therapy Program [address] [facility] [address] [place] [address] Isaura Wynn, [employer] SUPERVISOR [address] [facility] [address] [place] [id number] Myelodysplasia (myelodysplastic syndrome) (CMS/HCC) (Primary Dx) Social [...] drink first t manav in the morning (EYE-EXPLOSIVE EXPERT) to steady your nerves or to get [...] Notes * Progress Notes - Isaura Wynn, [employer]ING [employer] SUPERVISOR - 12/16/2024 8:30 AM EDT HEMATOLOGY [...] a preserved mata-T cell profile with a CD4:ON4bufmb of 2.7:1. Polyclonal B-cells (3%) and a small plasma cell population (0.6%) were also identified. Cytogenetics: Normal. Molecular Testing: PCR for NPM1 and FLT3 mutations are negative. 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 The third, and most promising, option would be enrollment in a clinical trial, ideally one that targets TP53- mutant disease or incorporates novel agents. Unfortunately, there are no active trials available locally or at [facility], but I have reached out to Dr. Fernandes at [facility] to explore any opportunities there. We [...] daily., Disp: 90 tablet, Rfl: 3 HYDROcodone-acetaminophen ([place]) 5-325 MG tablet, Take 1 tablet by [...] History: N/A Plan: Venetoclax rx sent to [facility]. Refills due monthly. Patient will return to clinic in 4 weeks. Will follow-up at that time. documented in this encounter Plan of Treatment Upcoming Encounters Date Type Department Care Team ([facility] st Contact Info) Description 02/02/2025 11:00 AM EDT Appointment [facility] A Interventional Radiology [address] [place] [address] 02/10/2025 8:30 AM EDT Clinical Support [facility] Hematology/BMT and Cellular Therapy Program [address] [address] 02/10/2025 9:00 AM EDT Office Visit [facility] Hematology/BMT and Cellular Therapy Program [address] [address] Elaina Boss PA [address] [facility] [address] [place] [address] 02/10/2025 10:30 AM EDT Appointment [facility] Infusion Clinic [address] [place] [address] 02/11/2025 2:00 PM EDT Appointment [facility] Infusion [facility] [address] [place] [address] 02/12/2025 2:00 PM EDT Appointment [facility] [address] [place] [address] 02/13/2025 2:00 PM EDT Appointment [facility] [address] [place] [address] 02/14/2025 2:00 PM EDT Appointment [facility] Infusion [facility] [address] [place] [address] 03/10/2025 8:30 AM EDT Clinical Support [facility] CC Hematology/BMT and Cellular Therapy Program [address] [address] 03/10/2025 9:00 AM EDT Office Visit [facility] Hematology/BMT and Cellular Therapy Program [address] [address] Isaura Wynn, [employer]ING [employer] SUPERVISOR [address] [facility] [address] [place] [address] 03/10/2025 11:20 AM EDT Office Visit Pav CC Head, Neck & Respiratory [address] [facility], [address] [place] [address] Elsa Razo, [employer] SUPERVISOR [address] [place] [phone] documented as of this encounter Procedures Procedure Name Priority Date/Time Associated Diagnosis Comments GROUP A STREPTOCOCCUS BY PCR Routine 12/16/2024 9:40 AM EDT Myelodysplasia (myelodysplastic syndrome) ([facility]) STREPTOCOCCUS CULTURE Routine 12/16/2024 9:40 AM EDT Myelodysplasia (myelodysplastic syndrome) ([facility]) CBC WITH AUTO DIFFERENTIAL Routine 12/16/2024 8:10 AM EDT Myelodysplasia (myelodysplastic syndrome) ([facility]) URIC ACID, PLASMA Routine 12/16/2024 8:1 0 AM EDT Myelodysplasia (myelodysplastic syndrome) ([facility]) PHOSPHORUS, PLASMA Routine 12/16/2024 8: 10 AM [...] Clinical Indication AML 01/07/2025 10:18 AM EDT [facility] Flow Cytometry Interpretation APPROXIMATELY 16% MYELOID BLASTS; EXPRESSING CD34, CD117, CD13, CD33, HLA-DR, PARTIAL CD7, PARTIAL CD123, VARIABLE CD38, AND MODERATE CD45, SEE COMMENT, BONE MARROW ASPIRATE. 01/07/2025 10:18 AM EDT [facility] Comments Specimen viability is 79%. [...] disease. Final interpretation requires morphologic correlation ([id number]). The following antibodies were used in this analysis: CD45, CD2, CD3, CD4, CD5, CD7, CD8, CD10, CD13, CD14, CD15, CD16, CD19, CD20, CD33, CD34, CD38, CD56, CD117, HLA-DR, kappa surface light chains, lambda surface light chains, CD123 01/07/2025 10:[address] [facility] Disclaimer This test was developed and its performance characteristics determined by the Immuno-Molecular Pathology Laboratory at the [facility]. It has not been cleared [...] clinical laboratory testing. 01/07/2025 10:[address] [facility] Pathologist Signature Reviewed by: Tessie Peralta MD 01/07/2025 10:18 AM EDT [facility] MRD Indicated Test Not Indicated 10:18 AM EDT [facility] Bone Marrow Specimen from bone marrow obtained by aspiration / Unknown Non-blood Collection / Unknown 01/06/2025 9:48 AM EDT 01/06/2025 11:20 AM EDT us Virgen Vargas MD LAB FLOW CYTOMETRY ORDERABLES Final Result [facility] [address] [place] [address] * Bone marrow exam (01/06/2025 9:48 AM EDT) Case Report Bone Marrow Case: [id number] Authorizing Provider: Virgen Vargas MD Collected: 01/06/2025 0948 Ordering Location: [facility] Hematology/BMT and Received: 01/06/2025 1108 Cellular Therapy Program Pathologist: Tessie Peralta MD Specimens: A) - Bone Marrow Aspirate, left B) - Bone Marrow Biopsy, left C) - Peripheral Blood for Bone Marrow 6:13 PM EDT [facility] Final Diagnosis BONE MARROW, LEFT POSTERIOR ILIAC CREST, (PERIPHERAL SMEAR, ASPIRATE SMEARS, AND CORE BIOPSY): - MILDLY HYPOCELLULAR BONE MARROW WITH ERYTHROID HYPERPLASIA, MARKEDLY REDUCED GRANULOPOIESIS, PERSISTENT DYSPOIESIS AND 10% BLASTS, SEE COMMENT. 6:13 PM EDT [facility] at 1813 EDT Comment The marrow cellularity is composed of erythroid cells with markedly reduced granulopoiesis and decreased megakaryocytes. Persistent trilineage dyspoiesis is noted. The blast percentages are higher by flow cytometry analysis as the majority of marrow cellularity consists of erythroid precursors that are removed by flow cytometry. 5 6:13 PM EDT [facility] Clinical Information AML 12/22 6:13 PM EDT [facility] CBC [...] blasts are identified. 5 6:13 PM EDT [facility] Bone Marrow Differential BONE MARROW DIFFERENTIAL: 400 cells Normal Patient Neutrophils 15-50 0 Metamyelocytes 4-19 1 Myelocytes 1-18 2 Promyelocytes 1-8 1 Blasts 0-2 10 Monocytes 0-5 0 Erythroid 16-38 73 Lymphocytes 3-24 4 Eosinophils 0-6 1 Basophils 0-2 0 Plasma cells 0-4 8 Other 5 6:13 PM EDT [facility] Bone Marrow Aspirate and Biopsy [...] trabeculae are unremarkable. 5 6:[address] [facility] Special and Immunohistochemical Stains Immunohistochemica l stains [...] performed at the [facility], [address] [place] [address]. All tests reported here, except those addressing [...] on decalcified specimens. 5 6:[address] [facility] Flow Cytometry Interpretation APPROXIMATELY 16% MYELOID BLASTS; EXPRESSING CD34, CD117, CD13, CD33, HLA-DR, PARTIAL CD7, PARTIAL CD123, VARIABLE CD38, AND MODERATE CD45, SEE COMMENT, BONE MARROW ASPIRATE ([id number]) 6:13 PM EDT [facility] Gross Description B. LEFT A single specimen is received in formalin labeled bone marrow biopsy left posterior iliac crest and consists of 2 piece(s) of tissue measuring 0.8/0.2 cm in length 0.2 cm in diameter. The specimen is submitted in to Histology for decalcification and routine processing. Cold Time: <1m 6:13 PM EDT [facility] Note: A resident was involved in the service. I attest I examined the relevant preparations for the specimens and confirmed the diagnosis or interpretation. 6:13 PM EDT [facility] Bone [...] MD LAB PATHOLOGY ORDERABLES Terri lara Result [facility] [address] [place] [address] * Streptococcus Culture (12/16/2024 9:40 AM EDT) Culture Reading Strep A No Streptococcus pyogenes or Streptococcus dysgalactiae isolated 12/17/2024 2:28 PM EDT [facility] Swab Pharyngeal structure / Unknown Non-blood Collection / Unknown 12/16/2024 9:40 AM EDT 12/16/2024 10:10 AM EDT Isaura L Meikel [employer] SUPERVISOR LAB MICROBIOLOGY - GENERAL ORD ERABLES Final Result Performing Organization Address [facility] de Phone Number [facility] [address] [place] [address] * Group A Streptococcus by PCR (12/16/2024 9:40 AM EDT) Group A Streptococcus PCR Result Not Detected Not Detected 12/16/2024 11:53 AM EDT [facility] Swab Pharyngeal structure / Unknown Non-blood Collection / Unknown 12/16/2024 9:40 AM EDT 12/16/2024 10:10 AM EDT us Isaura Wynn APRN LAB MICROBIOLOGY - GENERAL ORD ERABLES Final Result Performing Organization Address [facility] [place] [address] * (ABNORMAL) Uric acid (12/16/2024 8:10 AM EDT) Uric Acid, Plasma 3.0(L) 3.7 - 8.0 mg/dL 12/16/2024 8:58 AM EDT [facility] Blood Venous blood specimen / Unknown Venipuncture / Unknown 12/16/2024 8:10 AM EDT 12/16/2024 8:27 AM EDT us Isaura Wynn [employer] SUPERVISOR LAB BLOOD ORDERABLES Final Res ult Performing Organization Address [facility] de Phone Number [facility] [address] [place] [address] * Phosphorus, Plasma (12/16/2024 8:10 AM EDT) Phosphorus, Plasma 3.4 2.5 - 4.5 mg/dL 12/16/2024 8:58 AM EDT [facility] Blood Venous blood specimen / Unknown Venipuncture / Unknown 12/16/2024 8:10 AM EDT 12/16/2024 8:27 AM EDT us Isaura Wynn [employer] SUPERVISOR LAB BLOOD ORDERABLES Final Res ult Performing Organization Address City/[facility] Co de Phone Number [facility] [address] [place] [address] * Magnesium, Plasma (12/16/2024 8:10 AM EDT) Magnesium, Plasma 2.4 1.9 - 2.4 mg/dL 12/16/2024 8:58 AM EDT [facility] Blood Venous blood specimen / Unknown Venipuncture / Unknown 12/16/2024 8:10 AM EDT 12/16/2024 8:27 AM EDT us Isaura L Meikel [employer]ING [employer] SUPERVISOR LAB BLOOD ORDERABLES Final Res ult Performing Organization Address [facility] Co de Phone Number [facility] [address] [place] [address] * Lactate Dehydrogenase, Plasma (12/16/2024 8:10 AM EDT) LDH, Plasma 230 116 - 250 U/L 12/16/2024 8:58 AM EDT [facility] Blood Venous blood specimen / Unknown Venipuncture / Unknown 12/16/2024 8:10 AM EDT 12/16/2024 8:27 AM EDT us Isaura L Meikel [employer] SUPERVISOR LAB BLOOD ORDERABLES Final Res ult Performing Organization Address [facility] Co de Phone Number [facility] [address] [place] [address] * (ABNORMAL) Comprehensive Metabolic Panel, Plasma (12/16/2024 8:10 AM EDT) Glucose, Plasma 110(H) 74 - 99 mg/dL 12/16/2024 8:58 AM EDT [facility] BUN, Plasma 10 8 - 23 mg/dL 12/16/2024 8:58 AM EDT [facility] Creatinine, Plasma 0.79 0.70 - 1.20 mg/dL 12/16/2024 8:58 AM EDT [facility] BUN/Creatinine Ratio 13 12/16/2024 8:58 AM EDT [facility] Sodium, Plasma 140 136 - 145 mmol/L 12/16/2024 8:58 AM EDT [facility] Potassium, Plasma 4.2 3.6 - 4.9 mmol/L 12/16/2024 8:58 AM EDT [facility] Chloride, Plasma 109(H) 97 - 107 mmol/L 12/16/2024 8:58 AM EDT [facility] CO2, Plasma 21(L) 22 - 29 mmol/L 12/16/2024 8:58 AM EDT [facility] Anion Gap 10 6 - 16 mmol/L 12/16/2024 8:58 AM EDT [facility] Total Calcium, Plasma 8.9 8.9 - 10.2 mg/dL 12/16/2024 8:58 AM EDT [facility] Total Protein 6.8 6.3 - 7.9 g/dL 12/16/2024 8:58 AM EDT [facility] Albumin, Plasma 4.0 3.5 - 5.2 g/dL 12/16/2024 8:58 AM EDT [facility] AST, Plasma 23 10 - 50 U/L 12/16/2024 8:58 AM EDT [facility] ALT, Plasma 25 10 - 50 U/L 12/16/2024 8:58 AM EDT [facility] Alkaline Phosphatase, Plasma 95 40 - 115 U/L 12/16/2024 8:58 AM EDT [facility] Total Bilirubin, Plasma 0.6 0.2 - 1.1 mg/dL 12/16/2024 8:58 AM EDT [facility] eGFRcr 96.2 mL/min/1.7 3m*2 12/16/2024 8:58 AM EDT [facility] Comment:Reported eGFRcr in m L/min/1.73m2 is based the CKD-EPI 2020 equation that does not use a race coefficient. Blood Venous blood specimen / Unknown Venipuncture / Unknown 12/16/2024 8:10 AM EDT 12/16/2024 8:27 AM EDT us Isaura Wynn APRN LAB BLOOD ORDERABLES Final Res ult [facility] [address] [place] [address] * (ABNORMAL) CBC and Differential (12/16/2024 8:10 AM EDT) WBC Count 0.59(LL) 3.70 - 10.30 10*3/uL LAB HEMATOLOGY METHOD 12/16/2024 10:15 AM EDT [facility] RBC Count 2.48(L) 4.60 - 6.10 10*6/uL LAB HEMATOLOGY METHOD 12/16/2024 10:15 AM EDT [facility] HGB 8.0(L) 13.7 - 17.5 g/dL LAB HEMATOLOGY METHOD 12/16/2024 10:15 AM EDT [facility] HCT 22.1(L) 40.0 - 51.0 % LAB HEMATOLOGY METHOD 12/16/2024 10:15 AM EDT [facility] Platelet Count <5(LL) 155 - 369 10*3/uL LAB HEMATOLOGY METHOD 12/16/2024 10:15 AM EDT [facility] MCV 89 79 - 98 fL LAB HEMATOLOGY METHOD 12/16/2024 10:15 AM EDT [facility] MCH 32.3(H) 26.0 - 32.0 pg LAB HEMATOLOGY METHOD 12/16/2024 10:15 AM EDT [facility] MCHC 36.2(H) 30.7 - 35.5 g/dL LAB HEMATOLOGY METHOD 12/16/2024 10:15 AM EDT [facility] RDW 16.3(H) 11.5 - 14.5 % LAB HEMATOLOGY METHOD 12/16/2024 10:15 AM EDT [facility] MPV LAB HEMATOLOGY METHOD 12/16/2024 10:15 AM EDT [facility] Comment:Not Measured nRBC 0.0 <=0.0 per 100 WBCs LAB HEMATOLOGY METHOD 12/16/2024 10:15 AM EDT [facility] Differential Type Automated LAB HEMATOLOGY METHOD 12/16/2024 10:15 AM EDT [facility] Neutrophils % 5 % LAB HEMATOLOGY METHOD 12/16/2024 10:15 AM EDT [facility] Lymphocytes % 90 % LAB HEMATOLOGY METHOD 12/16/2024 10:15 AM EDT [facility] Monocytes % 5 % LAB HEMATOLOGY [...] Final Res ult [facility] [address] [place] [address] documented in this encounter Visit Diagnoses Diagnosis [...] documented as of this encounter Care Teams Shipping Receiving Manager Relationship Specialty Start Date End Date Zhao Harris MD [address] [place] [address] PCP - General 12/03/20 documented as of this encounter
--- OUTSIDE RECORDS SUMMARY | 2024-12-16 10:00 | XMS_ITS | Encounter Summary ---
Author Organization [facility] Address [address] [place] [address] Care Team Providers Care Joggle Press Operator Name Role Phone Zhao Harris MD Primary Care Provider + [phone] Reason for Visit * Episode Based Medications (Routine) - Closed Specialty Diagnoses / Procedures Referred By Justice mcgee Referred To Contact Diagnoses Myelodysplasia (myelodysplastic syndrome) (CMS/HCC) Procedures Azacitidine Daily x 7 / Venetoclax Every 28 Days Virgen Vargas MD [address] [address] Phone: tel: fax: Virgen Vargas MD [address] [address] Phone: tel: fax: Referral ID Status Reason Start Date Expiration Date Visits Re quested Visits Authorized [id number] Closed 10/20/2024 04/21/2026 1 91 Encounter Details Date Type Department Care Team (Latest Contact Info) Description 12/16/2024 10:00 AM EDT - 12/16/2024 10:59 AM EDT Hospital Encounter [facility] H Infusion [address] [place] [phone] Myelodysplasia (myelodysplastic syndrome) (CMS/HCC) (Primary Dx); Thrombocytopenia [...] first t manav in the morning (EYE-PATIENT CENTERED CARE SPECIALIST) to steady your nerves or to [...] daily. 90 tablet 3 09/11/2024 HYDROcodone-aceta minophen ([place]) 5-325 MG tablet Take 1 tablet by [...] AM EDT Appointment [facility] A Interventional Radiology [address] [place] [phone] 02/10/2025 8:30 AM EDT Clinical Support [facility] Hematology/BMT and Cellular Therapy Program [address] [address] 02/10/2025 9:00 AM EDT Office Visit [facility] Hematology/BMT and Cellular Therapy Program [address] [place] [address] Elaina Boss, PA 800 [facility] [address] [place] [phone] 02/10/2025 10:30 AM EDT Appointment [facility] 1 [address] [place] [address] 02/11/2025 2:00 PM EDT Appointment [facility] 1 [address] [place] [address] 02/12/2025 2:00 PM EDT Appointment [facility] 1 [address] [place] [address] 02/13/2025 2:00 PM EDT Appointment [facility] 1 [address] [place] [address] 02/14/2025 2:00 PM EDT Appointment [facility] 1 [address] [place] [address] 03/10/2025 8:30 AM EDT Clinical Support [facility] Hematology/BMT and Cellular Therapy Program [address] [address] 03/10/2025 9:00 AM EDT Office Visit [facility] Hematology/BMT and Cellular Therapy Program [address] [place] [address] Isaura Wynn, ESTRELLA 800 [facility] [address] [address] 03/10/2025 11:20 AM EDT Office Visit [facility] Head[facility] Neck [facility] Respiratory 800 [facility], 2nd [place] [address] Elsa Razo, SALES STORE CHECKER [address] [place] [address] documented as of this encounter [...] LAB HEMATOLOGY METHOD 12/16/2024 1:00 PM EDT [facility] Blood Venous blood specimen / Unknown Venipuncture / Unknown 12/16/2024 12:23 PM EDT 12/16/2024 12:51 PM EDT us Virgen Vargas MD LAB BLOOD ORDERABLES Final Re sult [facility] [address] [place] [address] * Transfuse platelets (12/16/2024 12:21 PM EDT) [...] ORDERABLE S Final Result Performing Organization Address City/State/[facility] Co de Phone Number BLOOD BANK 800 [place] [address], * Exception to Standard Practice, Pathologist Interpretation [...] ORDERAB LES Final Result BLOOD BANK 800 [place] [address], [place] * Prepare Leukocyte Reduced Platelets: 1 Units (12/16/2024 10:54 AM EDT) Product Code X2058Y26 CH BLOO D BANK Dispense Status Transfused BLOOD BANK Blood Expiration Date BLOOD BANK Unit Number [id number] CH B LOOD BANK Product Blood Type 8400 BLOOD BANK Blood Type AB+ BLOOD BANK Blood Venous blood specimen / Unknown us Kayli CHIU BLOOD BANK PRODUCT ORDER VIKAS Final Result Performing Organization Address [facility] Co de Phone Number BLOOD BANK 800 [place] [address], * Prepare Leukocyte Reduced RBC: 1 Units, Irradiated (12/16/2024 10:54 AM EDT) Product Code [id number] CH BLOO D BANK Dispense Status Transfused BLOOD BANK Blood Expiration Date [id number] BLOOD BANK Unit Number [id number] CH B LOOD BANK Product Blood Type 9500 BLOOD BANK Blood Type O- CH BLOOD BANK Crossmatch Compatible CH BLOOD BANK Other Kayli CHIU BLOOD BANK PRODUCT ORDER VIKAS Final Result Performing Organization Address City/[facility]/ZIP Co de Phone Number BLOOD BANK 800 [place] [address], documented in this encounter Visit Diagnoses Diagnosis [...] documented as of this encounter Care Teams Joggle Press Operator Relationship Specialty Start Date End Date Zhao Harris MD [address] [phone] PCP - General 12/03/20 documented as of this encounter
--- OUTSIDE RECORDS SUMMARY | 2024-12-16 11:00 | XMS_ITS | Encounter Summary ---
Author Organization Healthcare Address [address] [place] [address] Care Team Providers Care Custodial Operations Manager Name Role Phone Zhao Harris MD Primary Care Provider [phone] Encounter Details Date Type Department Care Team (Latest Contact Info) Description 12/16/2024 11:00 AM EDT - 12/16/2024 11:59 PM EDT Hospital Encounter [facility] [address] [place] [address] Myelodysplasia (myelodysplastic syndrome) (CMS/HCC) (Primary Dx) Discharge [...] drink first t manav in the morning (EYE-VETERINARY LABORATORY DIAGNOSTICIAN) to steady your nerves or to get [...] 5 MG tabletIndications :Coronary artery disease involving swinom[place] heart with angina pectoris, unspecified vessel or lesion type (CMS/HCC),Hyperte nsion, unspecified type Take 1 tablet (5 mg) by mouth daily. 90 tablet 3 09/11/2024 HYDROcodone-aceta minophen ([place]) 5-325 MG tablet Take 1 tablet by [...] MG SL tabletIndications :Coronary artery disease involving [place]om[place] heart with angina pectoris, unspecified vessel or [...] Appointment [facility] A Interventional Radiology [address] [place] [address] 02/10/2025 8:30 AM EDT Clinical Support [facility] Hematology/BMT and Cellular Therapy Program [address] [place] [address] [place] [address] 02/10/2025 9:00 AM EDT Office Visit [facility] Hematology/BMT and Cellular Therapy Program [address] [place] [address] [place] [phone] Elaina Boss, ARAM 800 [facility] Cancer [address] [address] 02/10/2025 10:30 AM EDT Appointment [facility] 1 [address] [place] [address] 02/11/2025 2:00 PM EDT Appointment [facility] 1 [address] [place] [phone] 02/12/2025 2:00 PM EDT Appointment [facility] 1 [address] [place] [address] 02/13/2025 2:00 PM EDT Appointment [facility] 1 [address] [place] [address] 02/14/2025 2:00 PM EDT Appointment [facility] 1 [address] [place] [address] 03/10/2025 8:30 AM EDT Clinical Support [facility] Hematology/BMT and Cellular Therapy Program [address] [phone] 03/10/2025 9:00 AM EDT Office Visit [facility] Hematology/BMT and Cellular Therapy Program [address] [phone] Isaura Wynn, LONG TERM ACUTE CARE REGISTERED NURSE 800 [facility] [address] [phone] 03/10/2025 11:20 AM EDT Office Visit [facility] Head, Neck & Respiratory 800 [facility], 2nd [place] [address] Elsa Razo, LONG TERM ACUTE CARE REGISTERED NURSE 800 [place] [phone] documented as of this encounter Visit Diagnoses [...] documented as of this encounter Care Teams Custodial Operations Manager Relationship Specialty Start Date End Date Zhao Harris MD [address] [place] [address] PCP - General 12/03/20 documented as of this encounter
--- OUTSIDE RECORDS SUMMARY | 2024-12-17 08:23 | XMS_ITS | Encounter Summary ---
Author Organization [facility] Address [address] [place] [address] Care Team Providers Care Account Retention Representative Name Role Phone Zhao Harris MD Primary Care Provider + [phone] Reason for Visit * Episode Based Medications (Routine) - Closed Specialty Diagnoses / Procedures Referred By Justice mcgee Referred To Contact Diagnoses Myelodysplasia (myelodysplastic syndrome) (CMS/HCC) Procedures Azacitidine Daily x 7 / Venetoclax Every 28 Days Virgen Vargas MD 800 [facility] Cancer [address] [address] Phone: tel: fax: Virgen Vargas MD [address] [address] Phone: tel: fax: Referral ID Status Reason Start Date Expiration Date Visits Re quested Visits Authorized [id number] Closed 10/20/2024 04/21/2026 1 91 Encounter Details Date Type Department Care Team (Latest Contact Info) Description 12/17/2024 8:23 AM EDT - 12/17/2024 11:59 PM EDT Hospital Encounter [facility] H Infusion 800 [place] [phone] Myelodysplasia (myelodysplastic syndrome) (CMS/HCC) (Primary Dx); Thrombocytopenia [...] drink first t manav in the morning (EYE-MULTIMEDIA ARTIST) to steady your nerves or to get [...] 5 MG tabletIndications :Coronary artery disease involving [place] heart with angina pectoris, unspecified vessel or lesion type (CMS/HCC),Hyperte nsion, unspecified type Take 1 tablet (5 mg) by mouth daily. 90 tablet 3 09/11/2024 HYDROcodone-aceta minophen ([place]) 5-325 MG tablet Take 1 tablet by [...] MG SL tabletIndications :Coronary artery disease involving [place] heart with angina pectoris, unspecified vessel or [...] Appointment [facility] A Interventional Radiology [address] [place] [address] 02/10/2025 8:30 AM EDT Clinical Support [facility] Hematology/BMT and Cellular Therapy Program [address] [address] 02/10/2025 9:00 AM EDT Office Visit [facility] Hematology/BMT and Cellular Therapy Program [address] [address] Elaina Boss, ARAM 800 [facility] [address] [place] [address] 02/10/2025 10:30 AM EDT Appointment [facility] 1 [address] [place] [address] 02/11/2025 2:00 PM EDT Appointment [facility] 1 [address] [place] [address] 02/12/2025 2:00 PM EDT Appointment [facility] 1 [address] [place] [address] 02/13/2025 2:00 PM EDT Appointment [facility] Infusion Clinic 1 [address] [place] [address] 02/14/2025 2:00 PM EDT Appointment [facility] Infusion [facility] 1 [address] [place] [address] 03/10/2025 8:30 AM EDT Clinical Support [facility] Hematology/BMT and Cellular Therapy Program [address] [address] 03/10/2025 9:00 AM EDT Office Visit [facility] Hematology/BMT and Cellular Therapy Program [address] [address] Isaura Wynn, AWNING FINISHER 800 [facility] [address] [place] [phone] 03/10/2025 11:20 AM EDT Office Visit Pav [facility] Head[facility] Neck & Respiratory 800 [facility], 2nd [place] [address] Elsa Razo, AWNING FINISHER 800 [place] [phone] documented as of this encounter Results * [...] Sun12/17/24 at 0915, RoutineIndications:Myelodyspla haim (myelodysplastic syndrome) ([facility]/HCC) Given 12/17/2024 8:54 AM EDT 16 [...] documented as of this encounter Care Teams Account Retention Representative Relationship Specialty Start Date End Date Zhao Harris MD [address] [place] [address] PCP - General 12/03/20 documented as of this encounter
--- OUTSIDE RECORDS SUMMARY | 2024-12-18 08:30 | XMS_ITS | Encounter Summary ---
Author Organization [facility] Address [address] [place] [address] Care Team Providers Care Prestressed Concrete Laborer Name Role Phone Zhao Harris MD Primary Care Provider + [phone] Reason for Visit * Episode Based Medications (Routine) - Closed Specialty Diagnoses / Procedures Referred By Justice mcgee Referred To Contact Diagnoses Myelodysplasia (myelodysplastic syndrome) (CMS/HCC) Procedures Azacitidine Daily x 7 / Venetoclax Every 28 Days Virgen Vargas MD [address] [address] Phone: tel: fax: Virgen Vargas MD [address] [address] Phone: tel: fax: Referral ID Status Reason Start Date Expiration Date Visits Re quested Visits Authorized [id number] Closed 10/20/2024 04/21/2026 1 91 Encounter Details Date Type Department Care Team (Latest Contact Info) Description 12/18/2024 8:30 AM EDT - 12/18/2024 9:45 AM EDT Hospital Encounter P[facility] H Infusion [address] [place] [phone] Myelodysplasia (myelodysplastic syndrome) (CMS/HCC) (Primary Dx); Thrombocytopenia [...] drink first t manav in the morning (EYE-BUSINESS BANKING MANAGER) to steady your nerves or to [...] 5 MG tabletIndications :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, unspecified vessel or [...] Appointment PAV A Interventional Radiology [address] [place] [address] 02/10/2025 8:30 AM EDT Clinical Support [facility] Hematology/BMT and Cellular Therapy Program [address] [address] 02/10/2025 9:00 AM EDT Office Visit PAV Hematology/BMT and Cellular Therapy Program [address] [address] Elaina Boss, PA 800 [facility] [address] [place] [address] 02/10/2025 10:30 AM EDT Appointment [facility] Infusion Clinic 1 [address] [place] [address] 02/11/2025 2:00 PM EDT Appointment [facility] Infusion [facility] 1 [address] [place] [address] 02/12/2025 2:00 PM EDT Appointment [facility] Infusion [facility] 1 [address] [place] [address] 02/13/2025 2:00 PM EDT Appointment [facility] Infusion [facility] 1 [address] [place] [address] 02/14/2025 2:00 PM EDT Appointment [facility] Infusion [facility] 1 [address] [place] [address] 03/10/2025 8:30 AM EDT Clinical Support [facility] Hematology/BMT and Cellular Therapy Program [address] [address] 03/10/2025 9:00 AM EDT Office Visit PAV Hematology/BMT and Cellular Therapy Program [address] [address] Isaura Wynn, FINANCIAL SERVICE PROFESSIONAL 800 [facility] [address] [phone] 03/10/2025 11:20 AM EDT Office Visit Pav Head, Neck & Respiratory 800 [facility], 2nd [place] [address] Elsa Razo B, FINANCIAL SERVICE PROFESSIONAL [address] [place] [address] documented as of this encounter [...] LAB HEMATOLOGY METHOD 12/18/2024 11:06 AM EDT [facility] Blood Blood sample taken from central line / Unknown Venipuncture / Unknown 12/18/2024 10:55 AM EDT 12/18/2024 11:03 AM EDT us Virgen Vargas MD LAB BLOOD ORDERABLES Final Re sult [facility] 800 [place] [address] * Transfuse platelets (12/18/2024 10:52 AM EDT) Kayli Daly Bhavesh CHIU BLOOD TRANSFUSION ORDERA BLES Final Result * Transfuse platelets: 1 Units (12/18/2024 10:52 AM EDT) Kayli Daly Bhavesh CHIU BLOOD TRANSFUSION ORDERA BLES Final Result * Prepare Leukocyte Reduced Platelets: 1 Units (12/18/2024 9:45 AM EDT) Product Code [id number] BLOO D BANK Dispense Status Transfused BLOOD BANK Blood Expiration Date [id number] BLOOD BANK Unit Number [id number] CH B LOOD BANK Product Blood Type 6200 BLOOD BANK Blood Type A+ BLOOD BANK Blood Venous blood specimen / Unknown Kayli Daly Bhavesh CHIU BLOOD BANK PRODUCT ORDER VIKAS Final Result Performing Organization Address City/State/[facility] de Phone Number BLOOD BANK [address] * (ABNORMAL) Comprehensive Metabolic Panel, Plasma (12/18/2024 9:14 AM EDT) Glucose, Plasma 108(H) 74 - 99 mg/dL 12/18/2024 9:51 AM EDT [facility] BUN, Plasma 10 8 - 23 mg/dL 12/18/2024 9:51 AM EDT [facility] Creatinine, Plasma 0.80 0.70 - 1.20 mg/dL 12/18/2024 9:51 AM EDT [facility] BUN/Creatinine Ratio 13 12/18/2024 9:51 AM EDT [facility] Sodium, Plasma 139 136 - 145 mmol/L 12/18/2024 9:51 AM EDT [facility] Potassium, Plasma 4.4 3.6 - 4.9 mmol/L 12/18/2024 9:51 AM EDT [facility] Chloride, Plasma 108(H) 97 - 107 mmol/L 12/18/2024 9:51 AM EDT [facility] CO2, Plasma 22 22 - 29 mmol/L 12/18/2024 9:51 AM EDT [facility] Anion Gap 9 6 - 16 mmol/L 12/18/2024 9:51 AM EDT [facility] Total Calcium, Plasma 8.8(L) 8.9 - 10.2 mg/dL 12/18/2024 9:51 AM EDT [facility] Total Protein 6.8 6.3 - 7.9 g/dL 12/18/2024 9:51 AM EDT [facility] Albumin, Plasma 3.9 3.5 - 5.2 g/dL 12/18/2024 9:51 AM EDT [facility] AST, Plasma 16 10 - 50 U/L 12/18/2024 9:51 AM EDT [facility] ALT, Plasma 16 10 - 50 U/L 12/18/2024 9:51 AM EDT [facility] Alkaline Phosphatase, Plasma 83 40 - 115 U/L 12/18/2024 9:51 AM EDT [facility] Total Bilirubin, Plasma 0.6 0.2 - 1.1 mg/dL 12/18/2024 9:51 AM EDT [facility] eGFRcr 95.8 mL/min/1.7 3m*2 12/18/2024 9:51 AM EDT [facility] Comment:Reported eGFRcr in m L/min/1.73m2 is based the CKD-EPI 2020 equation that does not use a race coefficient. Blood Blood sample taken from central line / Unknown Venipuncture / Unknown 12/18/2024 9:14 AM EDT 12/18/2024 9:20 AM EDT us Virgen Vargas MD LAB BLOOD ORDERABLES Final Re sult [facility] [address] [place] [address] * (ABNORMAL) CBC and differential (12/18/2024 9:14 AM EDT) WBC Count 0.51(LL) 3.70 - 10.30 10*3/uL LAB HEMATOLOGY METHOD 12/18/2024 10:49 AM EDT [facility] RBC Count 2.50(L) 4.60 - 6.10 10*6/uL LAB HEMATOLOGY METHOD 12/18/2024 10:49 AM EDT [facility] HGB 8.1(L) 13.7 - 17.5 g/dL LAB HEMATOLOGY METHOD 12/18/2024 10:49 AM EDT [facility] HCT 21.9(L) 40.0 - 51.0 % LAB HEMATOLOGY METHOD 12/18/2024 10:49 AM EDT [facility] Platelet Count 6(LL) 155 - 369 10*3/uL LAB HEMATOLOGY METHOD 12/18/2024 10:49 AM EDT [facility] MCV 88 79 - 98 fL LAB HEMATOLOGY METHOD 12/18/2024 10:49 AM EDT [facility] MCH 32.4(H) 26.0 - 32.0 pg LAB HEMATOLOGY METHOD 12/18/2024 10:49 AM EDT [facility] MCHC 37.0(H) 30.7 - 35.5 g/dL LAB HEMATOLOGY METHOD 12/18/2024 10:49 AM EDT [facility] RDW 16.7(H) 11.5 - 14.5 % LAB HEMATOLOGY METHOD 12/18/2024 10:49 AM EDT [facility] MPV LAB HEMATOLOGY METHOD 12/18/2024 10:49 AM EDT [facility] Comment:Not Measured nRBC 0.0 <=0.0 per 100 WBCs LAB HEMATOLOGY METHOD 12/18/2024 10:49 AM EDT [facility] Differential Type Automated LAB HEMATOLOGY METHOD 12/18/2024 10:49 AM EDT [facility] Neutrophils % 6 % LAB HEMATOLOGY METHOD 12/18/2024 10:49 AM EDT [facility] Lymphocytes % 90 % LAB HEMATOLOGY METHOD 12/18/2024 10:49 AM EDT [facility] Monocytes % 4 % LAB HEMATOLOGY METHOD 12/18/2024 10:49 AM EDT [facility] Eosinophils % 0 % LAB HEMATOLOGY METHOD 12/18/2024 10:49 AM EDT [facility] Basophils % 0 % LAB HEMATOLOGY METHOD 12/18/2024 10:49 AM EDT [facility] Immature Granulocytes % 0 % LAB HEMATOLOGY METHOD 12/18/2024 10:49 AM EDT [facility] Neutrophils Absolute 0.03(LL) 1.60 - 6.10 10*3/uL LAB HEMATOLOGY METHOD 12/18/2024 10:49 AM EDT [facility] Lymphocytes Absolute 0.46(L) 1.20 - 3.90 10*3/uL LAB HEMATOLOGY METHOD 12/18/2024 10:49 AM EDT [facility] Monocytes Absolute 0.02(L) 0.30 - 0.90 10*3/uL LAB HEMATOLOGY METHOD 12/18/2024 10:49 AM EDT [facility] Eosinophils Absolute 0.00 0.00 - 0.50 10*3/uL LAB HEMATOLOGY METHOD 12/18/2024 10:49 AM EDT [facility] Basophils Absolute 0.00 0.00 - 0.10 10*3/uL LAB HEMATOLOGY METHOD 12/18/2024 10:49 AM EDT [facility] Immature Granulocytes Absolute 0.00 0.00 - 0.06 10*3/uL LAB HEMATOLOGY METHOD 12/18/2024 10:49 AM EDT [facility] Blood Blood sample taken from central line / Unknown Venipuncture / Unknown 12/18/2024 9:14 AM EDT 12/18/2024 9:20 AM EDT Narrative [facility] - 12/18/2024 10:49 AM EDT Therapeutic decision making should be based on absolute values, rather than percentages. us Christina Ramos MD LAB BLOOD ORDERABLES Final Resul t Performing Organization Address City/State/[facility] Co de Phone Number [facility] [address] [place] [address] * Exception to Standard Practice, Pathologist Interpretation [...] Co de Phone Number BLOOD BANK [address] documented in this encounter Visit Diagnoses [...] documented as of this encounter Care Teams Prestressed Concrete Laborer Relationship Specialty Start Date End Date Zhao Harris MD [address] [place] [address] [place] [address] PCP - General 12/03/20 documented as of this encounter
--- OUTSIDE RECORDS SUMMARY | 2024-12-18 09:46 | XMS_ITS | Encounter Summary ---
Author Organization Healthcare Address [address] [place] [address] Care Team Providers Care Certified Peer Specialist Name Role Phone Zhao Harris MD Primary Care Provider [phone] Encounter Details Date Type Department Care Team (Latest Contact Info) Description 12/18/2024 9:46 AM EDT - 12/18/2024 11:59 PM EDT Hospital Encounter [facility] [address] [place] [address] Myelodysplasia (myelodysplastic syndrome) (CMS/HCC) (Primary Dx) Discharge [...] drink first t manav in the morning (EYE-GAME BIRD FARMER) to steady your nerves or to [...] 5 MG tabletIndications :Coronary artery disease involving [place] heart with angina pectoris, unspecified vessel or lesion type (CMS/HCC),Hyperte nsion, unspecified type Take 1 tablet (5 mg) by mouth daily. 90 tablet 3 09/11/2024 HYDROcodone-aceta minophen ([place]) 5-325 MG tablet Take 1 tablet by [...] MG SL tabletIndications :Coronary artery disease involving [place] heart with angina pectoris, unspecified vessel or [...] Appointment [facility] Interventional Radiology [address] [place] [address] 02/10/2025 8:30 AM EDT Clinical Support [facility] Hematology/BMT and Cellular Therapy Program [address] [address] 02/10/2025 9:00 AM EDT Office Visit [facility] Hematology/BMT and Cellular Therapy Program [address] [address] Elaina Boss, PA 800 [facility] [address] [place] [address] 02/10/2025 10:30 AM EDT Appointment [facility] 1 [address] [place] [address] 02/11/2025 2:00 PM EDT Appointment [facility] 1 [address] [place] [address] 02/12/2025 2:00 PM EDT Appointment [facility] 1 [address] [place] [address] 02/13/2025 2:00 PM EDT Appointment [facility] 1 [address] [place] [address] 02/14/2025 2:00 PM EDT Appointment [facility] 1 [address] [place] [address] 03/10/2025 8:30 AM EDT Clinical Support [facility] Hematology/BMT and Cellular Therapy Program [address] [address] 03/10/2025 9:00 AM EDT Office Visit [facility] Hematology/BMT and Cellular Therapy Program [address] [phone] Isaura Wynn, EDUCATIONAL SPECIALIST 800 [facility] [address] [place] [phone] 03/10/2025 11:20 AM EDT Office Visit Pav CC Head, Neck & Respiratory 800 [facility], 2nd [place] [address] Elsa Razo, EDUCATIONAL SPECIALIST 800 [place] [address] documented as of this encounter Visit Diagnoses [...] documented as of this encounter Care Teams Certified Peer Specialist Relationship Specialty Start Date End Date Zhao Harris MD [address] [place] [address] PCP - General 12/03/20 documented as of this encounter
--- OUTSIDE RECORDS SUMMARY | 2024-12-19 08:30 | XMS_ITS | Encounter Summary ---
Author Organization [facility] Address [address] [place] [address] Care Team Providers Care Policeman Name Role Phone Zhao Harris MD Primary Care Provider + [phone] Reason for Visit * Episode Based Medications (Routine) - Closed Specialty Diagnoses / Procedures Referred By Justice mcgee Referred To Contact Diagnoses Myelodysplasia (myelodysplastic syndrome) (CMS/HCC) Procedures Azacitidine Daily x 7 / Venetoclax Every 28 Days Virgen Vargas MD [address] [address] Phone: tel: fax: Virgen Vargas MD [address] [address] Phone: tel: fax: Referral ID Status Reason Start Date Expiration Date Visits Re quested Visits Authorized [id number] Closed 10/20/2024 04/21/2026 1 91 Encounter Details Date Type Department Care Team (Latest Contact Info) Description 12/19/2024 8:30 AM EDT - 12/19/2024 11:59 PM EDT Hospital Encounter [facility] Infusion Clinic 2 [address] [place] [phone] Myelodysplasia (myelodysplastic syndrome) (CMS/HCC) (Primary Dx) Discharge [...] drink first t manav in the morning (EYE-INSPECTOR PLATING) to steady your nerves or to get [...] 5 MG tabletIndications :Coronary artery disease involving [place] heart with angina pectoris, unspecified vessel or lesion type (CMS/HCC),Hyperte nsion, unspecified type Take 1 tablet (5 mg) by mouth daily. 90 tablet 3 09/11/2024 HYDROcodone-aceta minophen ([place]) 5-325 MG tablet Take 1 tablet by [...] MG SL tabletIndications :Coronary artery disease involving [place] heart with angina pectoris, unspecified vessel [...] Appointment [facility] Interventional Radiology [address] [place] [address] 02/10/2025 8:30 AM EDT Clinical Support [facility] Hematology/BMT and Cellular Therapy Program [address] [address] 02/10/2025 9:00 AM EDT Office Visit [facility] Hematology/BMT and Cellular Therapy Program [address] [address] Elaina Boss PA 800 [facility] [address] [place] [address] 02/10/2025 10:30 AM EDT Appointment [facility]fusion [facility] 1 [address] [place] [address] 02/11/2025 2:00 PM EDT Appointment [facility] 1 [address] [place] [address] 02/12/2025 2:00 PM EDT Appointment [facility] Infusion Clinic 1 [address] [place] [address] 02/13/2025 2:00 PM EDT Appointment [facility] Infusion Clinic 1 [address] [place] [address] 02/14/2025 2:00 PM EDT Appointment [facility] 1 [address] [place] [address] 03/10/2025 8:30 AM EDT Clinical Support [facility] Hematology/BMT and Cellular Therapy Program [address] [address] 03/10/2025 9:00 AM EDT Office Visit [facility] Hematology/BMT and Cellular Therapy Program [address] [address] Isaura Wynn, SENIOR ENGINEERING TECHNICIAN 800 [facility] [address] [place] [phone] 03/10/2025 11:20 AM EDT Office Visit [facility] CC Head, Neck & Respiratory 800 [facility], 2nd [place] [phone] Elsa Razo, SENIOR ENGINEERING TECHNICIAN [address] [place] [address] documented as of this encounter Visit Diagnoses [...] Sun12/19/24 at 0900, RoutineIndications:Myelodyspla haim (myelodysplastic syndrome) ([facility]) Given 12/19/2024 8:41 AM EDT 16 mg [...] documented as of this encounter Care Teams Policeman Relationship Specialty Start Date End Date Zhao Harris MD [address] [place] [address] PCP - General 12/03/20 documented as of this encounter
--- OUTSIDE RECORDS SUMMARY | 2024-12-20 08:08 | XMS_ITS | Encounter Summary ---
Author Organization [facility] Address [address] [facility] [place] [address] Care Team Providers Care Mainframe Systems Programmer Name Role Phone Zhao Harris MD Primary Care Provider + [phone] Reason for Visit * Episode Based Medications (Routine) - Closed Specialty Diagnoses / Procedures Referred By Justice mcgee Referred To Contact Diagnoses Myelodysplasia (myelodysplastic syndrome) (CMS/HCC) Procedures Azacitidine Daily x 7 / Venetoclax Every 28 Days Virgen Vargas MD [address] [place] [phone] Phone: tel: fax: Virgen Vargas MD [address] [phone] Phone: tel: fax: Referral ID Status Reason Start Date Expiration Date Visits Re quested Visits Authorized [id number] Closed 10/20/2024 04/21/2026 1 91 Encounter Details Date Type Department Care Team (Latest Contact Info) Description 12/20/2024 8:08 AM EDT - 12/20/2024 11:59 PM EDT Hospital Encounter [facility] 1 [address] [place] [phone] Myelodysplasia (myelodysplastic syndrome) (CMS/HCC) (Primary Dx); Thrombocytopenia [...] drink first t manav in the morning (EYE-SERVICE MECHANIC) to steady your nerves or to [...] 5 MG tabletIndications :Coronary artery disease involving [place] heart with angina pectoris, unspecified vessel or lesion type (CMS/HCC),Hyperte nsion, unspecified type Take 1 tablet (5 mg) by mouth daily. 90 tablet 3 09/11/2024 HYDROcodone-aceta minophen ([place]) 5-325 MG tablet Take 1 tablet by [...] MG SL tabletIndications :Coronary artery disease involving [place] heart with angina pectoris, unspecified vessel or [...] Upcoming Encounters Date Type Department Care Team ([facility] st Contact Info) Description 02/02/2025 11:00 AM EDT Appointment [facility] A Interventional Radiology [address] [place] [address] 02/10/2025 8:30 AM EDT Clinical Support [facility] Hematology/BMT and Cellular Therapy Program [address] [phone] 02/10/2025 9:00 AM EDT Office Visit [facility] Hematology/BMT and Cellular Therapy Program [address] [phone] Elaina Boss PA 800 [facility] [address] [place] [phone] 02/10/2025 10:30 AM EDT Appointment [facility] 1 [address] [place] [phone] 02/11/2025 2:00 PM EDT Appointment [facility] 1 [address] [place] [address] 02/12/2025 2:00 PM EDT Appointment [facility] 1 [address] [place] [phone] 02/13/2025 2:00 PM EDT Appointment [facility] 1 [address] [place] [phone] 02/14/2025 2:00 PM EDT Appointment [facility] 1 [address] [place] [phone] 03/10/2025 8:30 AM EDT Clinical Support [facility] Hematology/BMT and Cellular Therapy Program [address] [phone] 03/10/2025 9:00 AM EDT Office Visit [facility] Hematology/BMT and Cellular Therapy Program [address] [phone] Isaura Wynn, AMMONIA TECHNICIAN 800 [facility] [address] [place] [phone] 03/10/2025 11:20 AM EDT Office Visit Pav CC Head, Neck & Respiratory 800 [facility], 2nd [place] [phone] Elsa Razo, AMMONIA TECHNICIAN 800 [place] [phone] documented as of this encounter Procedures Procedure [...] ORDERABLE S Final Result BLOOD BANK 800 [place] [address], * Prepare Leukocyte Reduced RBC: 1 Units, Irradiated (12/20/2024 10:01 AM EDT) Product Code [id number] CH BLOO D BANK Dispense Status Transfused BLOOD BANK Blood Expiration Date [id number] BLOOD BANK Unit Number [id number] CH B LOOD BANK Product Blood Type 9500 BLOOD BANK Blood Type O- BLOOD BANK Crossmatch Compatible BLOOD BANK Other Kayli CHIU BLOOD BANK PRODUCT ORDER VIKAS Final Result BLOOD BANK 800 [place] [address], * (ABNORMAL) CBC and differential (12/20/2024 9:00 AM EDT) WBC Count 0.59(LL) 3.70 - 10.30 10*3/uL LAB HEMATOLOGY METHOD 12/20/2024 10:25 AM EDT [facility] RBC Count 2.46(L) 4.60 - 6.10 10*6/uL LAB HEMATOLOGY METHOD 12/20/2024 10:25 AM EDT [facility] HGB 7.8(L) 13.7 - 17.5 g/dL LAB HEMATOLOGY METHOD 12/20/2024 10:25 AM EDT [facility] HCT 22.0(L) 40.0 - 51.0 % LAB HEMATOLOGY METHOD 12/20/2024 10:25 AM EDT [facility] Platelet Count 22(L) 155 - 369 10*3/uL LAB HEMATOLOGY METHOD 12/20/2024 10:25 AM EDT [facility] MCV 89 79 - 98 fL LAB HEMATOLOGY METHOD 12/20/2024 10:25 AM EDT [facility] MCH 31.7 26.0 - 32.0 pg LAB HEMATOLOGY METHOD 12/20/2024 10:25 AM EDT [facility] MCHC 35.5 30.7 - 35.5 g/dL LAB HEMATOLOGY METHOD 12/20/2024 10:25 AM EDT [facility] RDW 16.0(H) 11.5 - 14.5 % LAB HEMATOLOGY METHOD 12/20/2024 10:25 AM EDT [facility] MPV 11.3 8.8 - 12.5 fL LAB HEMATOLOGY METHOD 12/20/2024 10:25 AM EDT [facility] nRBC 0.0 <=0.0 per 100 WBCs LAB HEMATOLOGY METHOD 12/20/2024 10:25 AM EDT [facility] Differential Type Automated LAB HEMATOLOGY METHOD 12/20/2024 10:25 AM EDT [facility] Neutrophils % 5 % LAB HEMATOLOGY METHOD 12/20/2024 10:25 AM EDT [facility] Lymphocytes % 92 % LAB HEMATOLOGY METHOD 12/20/2024 10:25 AM EDT [facility] Monocytes % 3 % LAB HEMATOLOGY METHOD 12/20/2024 10:25 AM EDT [facility] Eosinophils % 0 % LAB HEMATOLOGY METHOD 12/20/2024 10:25 AM EDT [facility] Basophils % 0 % LAB HEMATOLOGY METHOD 12/20/2024 10:25 AM EDT [facility] Immature Granulocytes % 0 % LAB HEMATOLOGY METHOD 12/20/2024 10:25 AM EDT [facility] Neutrophils Absolute 0.03(LL) 1.60 - 6.10 10*3/uL LAB HEMATOLOGY METHOD 12/20/2024 10:25 AM EDT [facility] Lymphocytes Absolute 0.54(L) 1.20 - 3.90 10*3/uL LAB HEMATOLOGY METHOD 12/20/2024 10:25 AM EDT [facility] Monocytes Absolute 0.02(L) 0.30 - 0.90 10*3/uL LAB HEMATOLOGY METHOD 12/20/2024 10:25 AM EDT [facility] Eosinophils Absolute 0.00 0.00 - 0.50 10*3/uL LAB HEMATOLOGY METHOD 12/20/2024 10:25 AM EDT [facility] Basophils Absolute 0.00 0.00 - 0.10 10*3/uL LAB HEMATOLOGY METHOD 12/20/2024 10:25 AM EDT [facility] Immature Granulocytes Absolute 0.00 0.00 - 0.06 10*3/uL LAB HEMATOLOGY METHOD 12/20/2024 10:25 AM EDT [facility] Blood Blood sample taken from central line / Unknown (Central Line) Existing Catheter / Unknown 12/20/2024 9:00 AM EDT 12/20/2024 9:13 AM EDT Narrative [facility] - 12/20/2024 10:25 AM EDT Therapeutic decision making should be based on absolute values, rather than percentages. us Christina Ramos MD LAB BLOOD ORDERABLES Final Resul t [facility] [address] [place] [address] documented in this encounter Visit Diagnoses Diagnosis [...] of this encounter Care Teams Mainframe Systems Programmer Relationship Specialty Start Date End Date Zhao Harris MD [address] [place] [address] [place] [address] PCP - General 12/03/20 documented as of this encounter
--- OUTSIDE RECORDS SUMMARY | 2024-12-21 08:30 | XMS_ITS | Encounter Summary ---
Author Organization [facility] Address [address] [place] [address] Care Team Providers Care Utilization Reviewer Name Role Phone Zhao Harris MD Primary Care Provider + [phone] Reason for Visit * Episode Based Medications (Routine) - Closed Specialty Diagnoses / Procedures Referred By Justice mcgee Referred To Contact Diagnoses Myelodysplasia (myelodysplastic syndrome) (CMS/HCC) Procedures Azacitidine Daily x 7 / Venetoclax Every 28 Days Virgen Vargas MD [address] [address] Phone: tel: fax: Virgen Vargas MD [address] [address] Phone: tel: fax: Referral ID Status Reason Start Date Expiration Date Visits Re quested Visits Authorized [id number] Closed 10/20/2024 04/21/2026 1 91 Encounter Details Date Type Department Care Team (Latest Contact Info) Description 12/21/2024 8:30 AM EDT - 12/21/2024 11:59 PM EDT Hospital Encounter [facility] Infusion Clinic 1 [address] [place] [phone] Myelodysplasia (myelodysplastic syndrome) (CMS/HCC) (Primary Dx) Discharge [...] drink first t manav in the morning (EYE-LASER PRINT OPERATOR) to steady your nerves or to [...] 5 MG tabletIndications :Coronary artery disease involving ewiiaapaayp heart with angina pectoris, unspecified vessel or lesion type (CMS/HCC),Hyperte nsion, unspecified type Take 1 tablet (5 mg) by mouth daily. 90 tablet 3 09/11/2024 HYDROcodone-aceta minophen ([place]) 5-325 MG tablet Take 1 tablet by [...] MG SL tabletIndications :Coronary artery disease involving [place]wiia[place]ayp heart with angina pectoris, unspecified vessel or [...] Appointment [facility] Interventional Radiology [address] [place] [address] 02/10/2025 8:30 AM EDT Clinical Support [facility] Hematology/BMT and Cellular Therapy Program [address] [place] [phone] 02/10/2025 9:00 AM EDT Office Visit [facility] Hematology/BMT and Cellular Therapy Program [address] [phone] Elaina Boss, ARAM 800 [facility] [address] [place] [phone] 02/10/2025 10:30 AM EDT Appointment [facility] Infusion [facility] 1 [address] [place] [address] 02/11/2025 2:00 PM EDT Appointment [facility]fusion [facility] 1 [address] [place] [address] 02/12/2025 2:00 PM EDT Appointment [facility] 1 [address] [place] [address] 02/13/2025 2:00 PM EDT Appointment [facility] 1 [address] [place] [address] 02/14/2025 2:00 PM EDT Appointment [facility] Infusion Clinic [address] [place] [address] 03/10/2025 8:30 AM EDT Clinical Support [facility] Hematology/BMT and Cellular Therapy Program [address] [address] 03/10/2025 9:00 AM EDT Office Visit [facility] Hematology/BMT and Cellular Therapy Program [address] [phone] Isaura Wynn, CITY COUNCILMAN 800 [facility] [address] [place] [phone] 03/10/2025 11:20 AM EDT Office Visit [facility] 800 [facility], [address]nd [place] [phone] Elsa Razo, CITY COUNCILMAN [address] [place] [phone] documented as of this encounter Visit Diagnoses [...] documented as of this encounter Care Teams Utilization Reviewer Relationship Specialty Start Date End Date Zhao Harris MD [address] [place] [address] PCP - General 12/03/20 documented as of this encounter
--- OUTSIDE RECORDS SUMMARY | 2024-12-22 08:24 | XMS_ITS | Encounter Summary ---
Author Organization [facility] Address [address] [place] [address] Care Team Providers Care Gun Barrel Finisher Name Role Phone Zhao Harris MD Primary Care Provider + [phone] Reason for Visit * Episode Based Medications (Routine) - Closed Specialty Diagnoses / Procedures Referred By Justice mcgee Referred To Contact Diagnoses Myelodysplasia (myelodysplastic syndrome) (CMS/HCC) Procedures Azacitidine Daily x 7 / Venetoclax Every 28 Days Virgen Vargas MD 800 [facility] [address] [address] Phone: tel: fax: Virgen Vargas MD [address] [address] Phone: tel: fax: Referral ID Status Reason Start Date Expiration Date Visits Re quested Visits Authorized [id number] Closed 10/20/2024 04/21/2026 1 91 Encounter Details Date Type Department Care Team (Latest Contact Info) Description 12/22/2024 8:24 AM EDT - 12/22/2024 9:57 AM EDT Hospital Encounter PAV H Infusion [address] [place] [phone] Myelodysplasia (myelodysplastic syndrome) (CMS/HCC) (Primary Dx); Thrombocytopenia [...] drink first t manav in the morning (EYE-GRAPHIC ARTS TECHNICIAN) to steady your nerves or to [...] MG tabletIndications :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, unspecified vessel or [...] Appointment PAV A Interventional Radiology [address] [place] [address] 02/10/2025 8:30 AM EDT Clinical Support PAV CC Hematology/BMT and Cellular Therapy Program [address] [place] [address] 02/10/2025 9:00 AM EDT Office Visit PAV Hematology/BMT and Cellular Therapy Program [address] [place] [address] Elaina Boss, ARAM 800 [facility] [address] [place] [phone] 02/10/2025 10:30 AM EDT Appointment [facility] Infusion Clinic 1 [address] [place] [phone] 02/11/2025 2:00 PM EDT Appointment [facility] Infusion Clinic 1 [address] [place] [address] 02/12/2025 2:00 PM EDT Appointment [facility] Infusion Clinic 1 [address] [place] [address] 02/13/2025 2:00 PM EDT Appointment [facility] Infusion Clinic 1 [address] [place] [phone] 02/14/2025 2:00 PM EDT Appointment [facility] Infusion Clinic 1 [address] [place] [phone] 03/10/2025 8:30 AM EDT Clinical Support PAV CC Hematology/BMT and Cellular Therapy Program [address] [phone] 03/10/2025 9:00 AM EDT Office Visit PAV Hematology/BMT and Cellular Therapy Program [address] [phone] Isaura Wynn, H[employer] 800 [facility] [address] [place] [phone] 03/10/2025 11:20 AM EDT Office Visit Pav CC Head, Neck & Respiratory 800 [facility], 2nd [place] [phone] Elsa Razo, H[employer]AN [employer] INTER[employer] [address] [place] [phone] documented as of this encounter Procedures Procedure [...] (ABNORMAL) Platelet count (12/22/2024 10:57 AM EDT) [facility] Platelet Count 36(L) 155 - 369 10*3/uL LAB HEMATOLOGY METHOD 12/22/2024 11:14 AM EDT [facility] Blood Venous blood specimen / Unknown Venipuncture / Unknown 12/22/2024 10:57 AM EDT 12/22/2024 11:04 AM EDT Virgen Vargas MD LAB BLOOD ORDERABLES Final Re sult [facility] [address] [place] [address] * Prepare Leukocyte Reduced Platelets: 1 Units (12/22/2024 9:44 AM EDT) Pathologist [facility] Product Code [id number] BLOO D BANK Dispense Status Transfused BLOOD BANK Blood Expiration Date [id number] BLOOD BANK Unit Number [id number] B LOOD BANK Product Blood Type 0600 BLOOD BANK Blood Type A- CH BLOOD BANK Blood Venous blood specimen / Unknown us Kayli CHIU BLOOD BANK PRODUCT ORDER VIKAS Final Result BLOOD BANK 800 [place] [address], * (ABNORMAL) CBC and Differential (12/22/2024 8:53 AM EDT) WBC Count 0.50(LL) 3.70 - 10.30 10*3/uL LAB HEMATOLOGY METHOD 12/22/2024 11:33 AM EDT [facility] RBC Count 2.90(L) 4.60 - 6.10 10*6/uL LAB HEMATOLOGY METHOD 12/22/2024 11:33 AM EDT [facility] HGB 8.9(L) 13.7 - 17.5 g/dL LAB HEMATOLOGY METHOD 12/22/2024 11:33 AM EDT [facility] HCT 25.0(L) 40.0 - 51.0 % LAB HEMATOLOGY METHOD 12/22/2024 11:33 AM EDT [facility] Platelet Count 5(LL) 155 - 369 10*3/uL LAB HEMATOLOGY METHOD 12/22/2024 11:33 AM EDT [facility] MCV 86 79 - 98 fL LAB HEMATOLOGY METHOD 12/22/2024 11:33 AM EDT [facility] MCH 30.7 26.0 - 32.0 pg LAB HEMATOLOGY METHOD 12/22/2024 11:33 AM EDT [facility] MCHC 35.6(H) 30.7 - 35.5 g/dL LAB HEMATOLOGY METHOD 12/22/2024 11:33 AM EDT [facility] RDW 15.6(H) 11.5 - 14.5 % LAB HEMATOLOGY METHOD 12/22/2024 11:33 AM EDT [facility] MPV LAB HEMATOLOGY METHOD 12/22/2024 11:33 AM EDT [facility] Comment:Not Measured nRBC 0.0 <=0.0 per 100 WBCs LAB HEMATOLOGY METHOD 12/22/2024 11:33 AM EDT [facility] Differential Type Automated LAB HEMATOLOGY METHOD 12/22/2024 11:33 AM EDT [facility] Neutrophils % 12 % LAB HEMATOLOGY METHOD 12/22/2024 11:33 AM EDT [facility] Lymphocytes % 86 % LAB HEMATOLOGY METHOD 12/22/2024 11:33 AM EDT [facility] Monocytes % 2 % LAB HEMATOLOGY METHOD 12/22/2024 11:33 AM EDT [facility] Eosinophils % 0 % LAB HEMATOLOGY METHOD 12/22/2024 11:33 AM EDT [facility] Basophils % 0 % LAB HEMATOLOGY METHOD 12/22/2024 11:33 AM EDT [facility] Immature Granulocytes % 0 % LAB HEMATOLOGY METHOD 12/22/2024 11:33 AM EDT [facility] Neutrophils Absolute 0.06(LL) 1.60 - 6.10 10*3/uL LAB HEMATOLOGY METHOD 12/22/2024 11:33 AM EDT [facility] Lymphocytes Absolute 0.43(L) 1.20 - 3.90 10*3/uL LAB HEMATOLOGY METHOD 12/22/2024 11:33 AM EDT [facility] Monocytes Absolute 0.01(L) 0.30 - 0.90 10*3/uL LAB HEMATOLOGY METHOD 12/22/2024 11:33 AM EDT [facility] Eosinophils Absolute 0.00 0.00 - 0.50 10*3/uL LAB HEMATOLOGY METHOD 12/22/2024 11:33 AM EDT [facility] Basophils Absolute 0.00 0.00 - 0.10 10*3/uL LAB HEMATOLOGY METHOD 12/22/2024 11:33 AM EDT [facility] Immature Granulocytes Absolute 0.00 0.00 - 0.06 10*3/uL LAB HEMATOLOGY METHOD 12/22/2024 11:33 AM EDT [facility] Blood Venous blood specimen / Unknown Venipuncture / Unknown 12/22/2024 8:53 AM EDT 12/22/2024 8:59 AM [facility]T [facility] 12/22/[facility]24 11:33 AM EDT Therapeutic decision making should be based on absolute values, rather than percentages. us Virgen Vargas MD LAB BLOOD ORDERABLES Final Re sult [facility] [address] [place] [address] * (ABNORMAL) Comprehensive Metabolic Panel, Plasma (12/22/2024 8:53 AM EDT) Glucose, Plasma 107(H) 74 - 99 mg/dL 12/22/2024 9:29 AM EDT [facility] BUN, Plasma 14 8 - 23 mg/dL 12/22/2024 9:29 AM EDT [facility] Creatinine, Plasma 0.93 0.70 - 1.20 mg/dL 12/22/2024 9:29 AM EDT [facility] BUN/Creatinine Ratio 15 12/22/2024 9:29 AM EDT [facility] Sodium, Plasma 136 136 - 145 mmol/L 12/22/2024 9:29 AM EDT [facility] Potassium, Plasma 4.3 3.6 - 4.9 mmol/L 12/22/2024 9:29 AM EDT [facility] Chloride, Plasma 106 97 - 107 mmol/L 12/22/2024 9:29 AM EDT [facility] CO2, Plasma 22 22 - 29 mmol/L 12/22/2024 9:29 AM EDT [facility] Anion Gap 8 6 - 16 mmol/L 12/22/2024 9:29 AM EDT [facility] Total Calcium, Plasma 9.1 8.9 - 10.2 mg/dL 12/22/2024 9:29 AM EDT [facility] Total Protein 7.0 6.3 - 7.9 g/dL 12/22/2024 9:29 AM EDT [facility] Albumin, Plasma 3.9 3.5 - 5.2 g/dL 12/22/2024 9:29 AM EDT [facility] AST, Plasma 16 10 - 50 U/L 12/22/2024 9:29 AM EDT [facility] ALT, Plasma 12 10 - 50 U/L 12/22/2024 9:29 AM EDT [facility] Alkaline Phosphatase, Plasma 83 40 - 115 U/L 12/22/2024 9:29 AM EDT [facility] Total Bilirubin, Plasma 0.7 0.2 - 1.1 mg/dL 12/22/2024 9:29 AM EDT [facility] eGFRcr 88.9 mL/min/1.7 3m*2 12/22/2024 9:29 AM EDT [facility] Comment:Reported eGFRcr in m L/min/1.73m2 is based the CKD-EPI 2020 equation that does not use a race coefficient. 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
--- OUTSIDE RECORDS SUMMARY | 2024-12-22 09:58 | XMS_ITS | Encounter Summary ---
Author Organization Healthcare Address [address] [place] [address] Care Team Providers Care Member Service Representative Name Role Phone Zhao Harris MD Primary Care Provider [phone] Encounter Details Date Type Department Care Team (Latest Contact Info) Description 12/22/2024 9:58 AM EDT - 12/22/2024 11:59 PM EDT Hospital Encounter [facility] Infusion [address] [place] [address] Myelodysplasia (myelodysplastic syndrome) (CMS/HCC) (Primary Dx) Discharge [...] first t manav in the morning (EYE-LEAD BURNER SUPERVISOR) to steady your nerves or to [...] daily. 90 tablet 3 09/11/2024 HYDROcodone-aceta minophen ([place]) 5-325 MG tablet Take 1 tablet by [...] Appointment [facility] A Interventional Radiology [address] [place] [address] 02/10/2025 8:30 AM EDT Clinical Support PAV Hematology/BMT and Cellular Therapy Program [address] [address] 02/10/2025 9:00 AM EDT Office Visit PAV Hematology/BMT and Cellular Therapy Program [address] [address] Elaina Boss, PA 800 [facility] [address] [place] [phone] 02/10/2025 10:30 AM EDT Appointment [facility]fusion [facility] 1 [address] [place] [address] 02/11/2025 2:00 PM EDT Appointment [facility] 1 [address] [place] [address] 02/12/2025 2:00 PM EDT Appointment [facility] 1 [address] [place] [address] 02/13/2025 2:00 PM EDT Appointment [facility] 1 [address] [place] [address] 02/14/2025 2:00 PM EDT Appointment [facility] Infusion Clinic 1 [address] [place] [address] 03/10/2025 8:30 AM EDT Clinical Support PAV Hematology/BMT and Cellular Therapy Program [address] [address] 03/10/2025 9:00 AM EDT Office Visit PAV Hematology/BMT and Cellular Therapy Program [address] [address] Isaura Wynn, ESTRELLA 800 [facility] [address] [place] [phone] 03/10/2025 11:20 AM EDT Office Visit Pav CC Head, Neck & Respiratory 800 [facility], 2nd [place] [address] Elsa Razo, INPATIENT CODER 800 [place] [address] documented as of this encounter Visit Diagnoses [...] as of this encounter Care Teams Member Service Representative Relationship Specialty Start Date End Date Zhao Harris MD [facility] [address] [address] PCP - General 12/03/20 documented as of this encounter
--- OUTSIDE RECORDS SUMMARY | 2025-01-06 08:30 | XMS_ITS | Encounter Summary ---
Author Organization [facility] Address [address] [place] [address] Care Team Providers Care Welder Helper Name Role Phone Zhao Harris MD Primary Care Provider [phone] Reason for Visit * Reason Comments Labs Encounter Details Date Type Department Care Team ([facility] st Contact Info) Description 01/06/2025 8:30 AM EDT Clinical Support PAV CC Hematology/BMT and Cellular Therapy Program [address] [place] [address] [place] [address] Nate Ponce, RN Social History Tobacco Use [...] drink first t manav in the morning (EYE-PROCESS SAFETY MANAGER) to steady your nerves or to [...] Appointment PAV A Interventional Radiology [address] [place] [address] 02/10/2025 8:30 AM EDT Clinical Support PAV Hematology/BMT and Cellular Therapy Program [address] [place] [address] 02/10/2025 9:00 AM EDT Office Visit PAV Hematology/BMT and Cellular Therapy Program [address] [address] Elaina Boss, PA 800 [facility] [address] [place] [address] 02/10/2025 10:30 AM EDT Appointment [facility] Infusion [facility] 1 [address] [place] [address] 02/11/2025 2:00 PM EDT Appointment [facility] Infusion [facility] 1 [address] [place] [address] 02/12/2025 2:00 PM EDT Appointment [facility] Infusion [facility] 1 [address] [place] [address] 02/13/2025 2:00 PM EDT Appointment [facility]fusion [facility] 1 [address] [place] [address] 02/14/2025 2:00 PM EDT Appointment [facility]fusion [facility] 1 [address] [place] [address] 03/10/2025 8:30 AM EDT Clinical Support PAV CC Hematology/BMT and Cellular Therapy Program 750 [facility] [place] [address] 03/10/2025 9:00 AM EDT Office Visit PAV CC Hematology/BMT and Cellular Therapy Program 750 [facility], [address] [place] [address] Isaura Wynn, BURGLAR ALARM MECHANIC 800 [facility] [address] [place] [address] 03/10/2025 11:20 AM EDT Office Visit Pav CC Head, Neck & Respiratory 800 [facility], 2nd [place] [phone] Elsa Razo, BURGLAR ALARM MECHANIC 800 [place] [address] documented as of this encounter Visit Diagnoses [...] as of this encounter Care Teams Welder Helper Relationship Specialty Start Date End Date Zhao Harris MD [address] [place] [address] PCP - General 12/03/20 documented as of this encounter
--- OUTSIDE RECORDS SUMMARY | 2025-01-06 09:00 | XMS_ITS | Encounter Summary ---
Author Organization [facility] Address [address] [place] [address] Care Team Providers Care Blow Mold Machine Operator Name Role Phone Zhao Harris MD Primary Care Provider [phone] Reason for Visit * Reason Comments Procedure * Genetic Testing (Routine) - Authorized Specialty Diagnoses / Procedures Referred By Justice mcgee Referred To Contact Lab Diagnoses Myelodysplasia (myelodysplastic syndrome) (CMS/HCC) Procedures Leukemia/Lymphoma - Immunophenotyping by Flow Cytometry Virgen Vargas MD [address] [facility] [address] [address] Phone: tel: fax: Referral ID Status Reason Start Date Expiration Date V isits Requested Visits Authorized [id number] Authorized 12/18/2024 06/19/2026 1 1 Encounter Details Date Type Department Care Team (Latest Contact Info) Description 01/06/2025 9:00 AM EDT Procedure Visit [facility] Hematology/BMT and Cellular Therapy Program [address] [place] [address] Kierra Novak APRN [address] [facility] [address] [address] Myelodysplasia (myelodysplastic syndrome) (CMS/HCC) Social [...] drink first t manav in the 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) to steady your nerves or to get [...] yes Risks discussed: Bleeding, infection and pain [place] protocol: Procedure explained and questions answered to [...] Appointment [facility] A Interventional Radiology [address] [place] [address] 02/10/2025 8:30 AM EDT Clinical Support [facility] Hematology/BMT and Cellular Therapy Program [address] [address] 02/10/2025 9:00 AM EDT Office Visit [facility] Hematology/BMT and Cellular Therapy Program [address] [address] Elaina Boss PA [address] [facility] [address] [place] [phone] 02/10/2025 10:30 AM EDT Appointment [facility] Infusion [facility] [address] [place] [address] 02/11/2025 2:00 PM EDT Appointment [facility] 1 [address] [place] [address] 02/12/2025 2:00 PM EDT Appointment [facility] [address] [place] [address] 02/13/2025 2:00 PM EDT Appointment [facility] [address] [place] [address] 02/14/2025 2:00 PM EDT Appointment [facility] [address] [place] [address] 03/10/2025 8:30 AM EDT Clinical Support [facility] Hematology/BMT and Cellular Therapy Program [address] [phone] 03/10/2025 9:00 AM EDT Office Visit [facility] Hematology/BMT and Cellular Therapy Program [address] [address] Isaura Wynn, CPA TAX [address] [facility] [address] [place] [phone] 03/10/2025 11:20 AM EDT Office Visit [facility] Head[facility] Neck & Respiratory [address] [facility], [address] [place] [address] Elsa Razo, CPA TAX [address] [place] [phone] documented as of this encounter Procedures Procedure [...] yes Risks discussed: Bleeding, infection and pain [place] protocol: Procedure explained and questions answered to [...] Flow Cytometry (01/06/2025 9:48 AM EDT) Pathologist [facility] Clinical Indication AML 01/07/2025 10:18 AM T [facility] Flow Cytometry Interpretation APPROXIMATELY 16% MYELOID BLASTS; EXPRESSING CD34, CD117, CD13, CD33, HLA-DR, PARTIAL CD7, PARTIAL CD123, VARIABLE CD38, AND MODERATE CD45, SEE COMMENT, BONE MARROW ASPIRATE. 01/07/2025 10:18 AM EDT [facility] Comments Specimen viability is [...] disease. Final interpretation requires morphologic correlation ([id number]). The following antibodies were used in this analysis: CD45, CD2, CD3, CD4, CD5, CD7, CD8, CD10, CD13, CD14, CD15, CD16, CD19, CD20, CD33, CD34, CD38, CD56, CD117, HLA-DR, kappa surface light chains, lambda surface light chains, CD123 01/07/2025 10:18 AM [facility] Disclaimer This test was developed and its performance characteristics determined by the Immuno-Molecular Pathology Laboratory at the [facility]. It has not been cleared or approved [...] complexity clinical laboratory testing. 01/07/2025 10:18 AM [facility] Pathologist Signature Reviewed by: Tessie Peralta MD 01/07/2025 10:18 AM [facility] MRD Indicated Test Not Indicated 06/ 10:18 AM EDT [facility] Bone Marrow Specimen from bone marrow obtained by aspiration / Unknown Non-blood Collection / Unknown 01/06/2025 9:48 AM EDT 01/06/2025 11:20 AM EDT Virgen Vargas MD LAB FLOW CYTOMETRY ORDERABLES Final Result [facility] [address] [place] [address] * Bone marrow exam (01/06/2025 9:48 AM EDT) Case Report Bone Marrow Case: [id number] Authorizing Provider: Virgen Vargas MD Collected: 01/06/2025 0948 Ordering Location: [facility] Hematology/BMT and Received: 01/06/2025 1108 Cellular Therapy Program Pathologist: Tessie Peralta MD Specimens: A) - Bone Marrow Aspirate, left B) - Bone Marrow Biopsy, left C) - Peripheral Blood for Bone Marrow 6:13 PM EDT [facility] Final Diagnosis BONE MARROW, LEFT POSTERIOR ILIAC CREST, (PERIPHERAL SMEAR, ASPIRATE SMEARS, AND CORE BIOPSY): - MILDLY HYPOCELLULAR BONE MARROW WITH ERYTHROID HYPERPLASIA, MARKEDLY REDUCED GRANULOPOIESIS, PERSISTENT DYSPOIESIS AND 10% BLASTS, SEE COMMENT. 6:13 PM EDT [facility] at 1813 EDT Comment The marrow cellularity is composed of erythroid cells with markedly reduced granulopoiesis and decreased megakaryocytes. Persistent trilineage dyspoiesis is noted. The blast percentages are higher by flow cytometry analysis as the majority of marrow cellularity consists of erythroid precursors that are removed by flow cytometry. 6:13 PM EDT [facility] Clinical Information AML 12/22 6:13 PM EDT [facility] CBC and Differential PERIPHERAL [...] circulating blasts are identified. 6:13 PM EDT [facility] Bone Marrow Differential BONE MARROW DIFFERENTIAL: 400 cells Normal Patient Neutrophils 15-50 0 Metamyelocytes 4-19 1 Myelocytes 1-18 2 Promyelocytes 1-8 1 Blasts 0-2 10 Monocytes 0-5 0 Erythroid 16-38 73 Lymphocytes 3-24 4 Eosinophils 0-6 1 Basophils 0-2 0 Plasma cells 0-4 8 Other 6:13 PM EDT [facility] Bone Marrow Aspirate and Biopsy Core [...] developed by and are performed at the [facility], [address] [place] [address]. All tests reported here, except those addressing [...] on decalcified specimens. 5 6:13 PM EDT [facility] Flow Cytometry Interpretation APPROXIMATELY 16% MYELOID BLASTS; EXPRESSING CD34, CD117, CD13, CD33, HLA-DR, PARTIAL CD7, PARTIAL CD123, VARIABLE CD38, AND MODERATE CD45, SEE COMMENT, BONE MARROW ASPIRATE ([id number]) 5 6:13 PM EDT [facility] Gross Description B. LEFT A single specimen is received in formalin labeled bone marrow biopsy left posterior iliac crest and consists of 2 piece(s) of tissue measuring 0.8/0.2 cm in length 0.2 cm in diameter. The specimen is submitted in to Histology for decalcification and routine processing. Cold Time: <1m 5 6:13 PM EDT [facility] Note: A resident was involved in the service. I attest I examined the relevant preparations for the specimens and confirmed the diagnosis or interpretation. 5 6:13 PM EDT [facility] Bone Marrow Peripheral blood [...] MD LAB PATHOLOGY ORDERABLES Terri lara Result [facility] [address] [place] [address] * (ABNORMAL) Comprehensive metabolic panel (01/06/2025 8:49 AM EDT) Glucose, Plasma 100(H) 74 - 99 mg/dL 01/06/2025 9:34 AM EDT [facility] BUN, Plasma 8 8 - 23 mg/dL 01/06/2025 9:34 AM EDT [facility] Creatinine, Plasma 0.76 0.70 - 1.20 mg/dL 01/06/2025 9:34 AM EDT [facility] BUN/Creatinine Ratio 11 01/06/2025 9:34 AM EDT [facility] Sodium, Plasma 138 136 - 145 mmol/L 01/06/2025 9:34 AM EDT [facility] Potassium, Plasma 4.3 3.6 - 4.9 mmol/L 01/06/2025 9:34 AM EDT [facility] Chloride, Plasma 109(H) 97 - 107 mmol/L 01/06/2025 9:34 AM EDT [facility] CO2, Plasma 21(L) 22 - 29 mmol/L 01/06/2025 9:34 AM EDT [facility] Anion Gap 8 6 - 16 mmol/L 01/06/2025 9:34 AM EDT [facility] Total Calcium, Plasma 8.8(L) 8.9 - 10.2 mg/dL 01/06/2025 9:34 AM EDT [facility] Total Protein 6.6 6.3 - 7.9 g/dL 01/06/2025 9:34 AM EDT [facility] Albumin, Plasma 3.9 3.5 - 5.2 g/dL 01/06/2025 9:34 AM EDT [facility] AST, Plasma 25 10 - 50 U/L 01/06/2025 9:34 AM EDT [facility] ALT, Plasma 28 10 - 50 U/L 01/06/2025 9:34 AM EDT [facility] Alkaline Phosphatase, Plasma 83 40 - 115 U/L 01/06/2025 9:34 AM EDT [facility] Total Bilirubin, Plasma 0.5 0.2 - 1.1 mg/dL 01/06/2025 9:34 AM EDT [facility] eGFRcr 97.3 mL/min/1.7 3m*2 01/06/2025 9:34 AM EDT [facility] Comment:Reported eGFRcr in m L/min/1.73m2 is based the CKD-EPI 2020 equation that does not use a race coefficient. Blood Venous blood specimen / Unknown Venipuncture / Unknown 01/06/2025 8:49 AM EDT 01/06/2025 9:01 AM EDT us Christina Ramos MD LAB BLOOD ORDERABLES Final Resul t [facility] [address] [place] [address] * (ABNORMAL) CBC and differential (01/06/2025 8:49 AM EDT) WBC Count 0.59(LL) 3.70 - 10.30 10*3/uL LAB HEMATOLOGY METHOD 01/06/2025 11:36 AM EDT [facility] RBC Count 2.95(L) 4.60 - 6.10 10*6/uL LAB HEMATOLOGY METHOD 01/06/2025 11:36 AM EDT [facility] HGB 8.8(L) 13.7 - 17.5 g/dL LAB HEMATOLOGY METHOD 01/06/2025 11:36 AM EDT [facility] HCT 25.3(L) 40.0 - 51.0 % LAB HEMATOLOGY METHOD 01/06/2025 11:36 AM EDT [facility] Platelet Count 75(L) 155 - 369 10*3/uL LAB HEMATOLOGY METHOD 01/06/2025 11:36 AM EDT [facility] MCV 86 79 - 98 fL LAB HEMATOLOGY METHOD 01/06/2025 11:36 AM EDT [facility] MCH 29.8 26.0 - 32.0 pg LAB HEMATOLOGY METHOD 01/06/2025 11:36 AM EDT [facility] MCHC 34.8 30.7 - 35.5 g/dL LAB HEMATOLOGY METHOD 01/06/2025 11:36 AM EDT [facility] RDW 14.6(H) 11.5 - 14.5 % LAB HEMATOLOGY METHOD 01/06/2025 11:36 AM EDT [facility] MPV 10.7 8.8 - 12.5 fL LAB HEMATOLOGY METHOD 01/06/2025 11:36 AM EDT [facility] nRBC 3.4(H) <=0.0 per 100 WBCs LAB HEMATOLOGY METHOD 01/06/2025 11:36 AM EDT [facility] Differential Type Automated LAB HEMATOLOGY METHOD 01/06/2025 11:36 AM EDT [facility] Neutrophils % 5 % LAB HEMATOLOGY METHOD 01/06/2025 11:36 AM EDT [facility] Lymphocytes % 88 % LAB HEMATOLOGY METHOD 01/06/2025 11:36 AM EDT [facility] Monocytes % 7 % LAB HEMATOLOGY METHOD 01/06/2025 11:36 AM EDT [facility] Eosinophils % 0 % LAB HEMATOLOGY METHOD 01/06/2025 11:36 AM EDT [facility] Basophils % 0 % LAB HEMATOLOGY METHOD 01/06/2025 11:36 AM EDT [facility] Immature Granulocytes % 0 % LAB HEMATOLOGY METHOD 01/06/2025 11:36 AM EDT [facility] Neutrophils Absolute 0.03(LL) 1.60 - 6.10 10*3/uL LAB HEMATOLOGY METHOD 01/06/2025 11:36 AM EDT [facility] Lymphocytes Absolute 0.52(L) 1.20 - 3.90 10*3/uL LAB HEMATOLOGY METHOD 01/06/2025 11:36 AM EDT [facility] Monocytes Absolute 0.04(L) 0.30 - 0.90 10*3/uL LAB HEMATOLOGY METHOD 01/06/2025 11:36 AM EDT [facility] Eosinophils Absolute 0.00 0.00 - 0.50 10*3/uL LAB HEMATOLOGY METHOD 01/06/2025 11:36 AM EDT [facility] Basophils Absolute 0.00 0.00 - 0.10 10*3/uL LAB HEMATOLOGY METHOD 01/06/2025 11:36 AM EDT [facility] Immature Granulocytes Absolute 0.00 0.00 - 0.06 10*3/uL LAB HEMATOLOGY METHOD 01/06/2025 11:36 AM EDT [facility] Blood Venous blood specimen / Unknown Venipuncture / Unknown 01/06/2025 8:49 AM EDT 01/06/2025 9:01 AM EDT Narrative [facility] - 01/06/2025 11:36 AM EDT Therapeutic decision making should be based on absolute values, rather than percentages. us Christina Ramos MD LAB BLOOD ORDERABLES Final Resul t [facility] [address] [place] [address] documented in this encounter Visit Diagnoses Diagnosis [...] documented as of this encounter Care Teams Blow Mold Machine Operator Relationship Specialty Start Date End Date Zhao Harris MD [facility] [address] [place] [address] PCP - General 12/03/20 documented as of this encounter
--- OUTSIDE RECORDS SUMMARY | 2025-01-13 09:30 | XMS_ITS | Encounter Summary ---
Author Organization [facility] Address [address] [place] [address] Care Team Providers Care Keno Writer / Runner Name Role Phone Zhao Harris MD Primary Care Provider [phone] Reason for Visit * Reason Comments Nurse Visit Labs Encounter Details Date Type Department Care Team ([facility] Contact Info) Description 01/13/2025 9:30 AM EDT Clinical Support P[facility] CC Hematology/BMT and Cellular Therapy Program [address] [place] [address] [place] [address] Social History Tobacco Use Types Packs/Day Years [...] first t manav in the morning (EYE-SUPERVISOR PLASMA) to steady your nerves or to get [...] Appointment PAV A Interventional Radiology [address] [place] [address] 02/10/2025 8:30 AM EDT Clinical Support P[facility] CC Hematology/BMT and Cellular Therapy Program [address] [address] 02/10/2025 9:00 AM EDT Office Visit PAV Hematology/BMT and Cellular Therapy Program [address] [address] Elaina Boss, PA 800 [facility] [address] [place] [address] 02/10/2025 10:30 AM EDT Appointment [facility] 1 744 [place] [address] 02/11/2025 2:00 PM EDT Appointment [facility] 1 7[address] [place] [address] 02/12/2025 2:00 PM EDT Appointment [facility] 1 7[address] [place] [address] 02/13/2025 2:00 PM EDT Appointment [facility] 1 7[address] [place] [address] 02/14/2025 2:00 PM EDT Appointment [facility] 1 7[address] [place] [address] 03/10/2025 8:30 AM EDT Clinical Support P[facility] CC Hematology/BMT and Cellular Therapy Program [address] [place] [address] 03/10/2025 9:00 AM EDT Office Visit P[facility] CC Hematology/BMT and Cellular Therapy Program 750 [facility] [place] [place] [address] Isaura Wynn, ANALYTICAL TECH 800 [facility] [address] [place] [address] 03/10/2025 11:20 AM EDT Office Visit Pav CC Head, Neck & Respiratory 800 [facility], 2nd [place] [address] Elsa Razo, ANALYTICAL TECH 800 [place] [address] documented as of this encounter Visit Diagnoses [...] documented as of this encounter Care Teams Keno Writer / Runner Relationship Specialty Start Date End Date Zhao Harris MD [address] [place] [address] [phone] PCP - General 12/03/20 documented as of this encounter
--- OUTSIDE RECORDS SUMMARY | 2025-01-13 10:00 | XMS_ITS | Encounter Summary ---
Author Organization [facility] Address [address] [place] [address] Care Team Providers Care Financial Service Professional Name Role Phone Zhao Harris MD Primary Care Provider [phone] Reason for Referral * Imaging (Routine) - Pending Review Specialty Diagnoses / Procedures Referred By Justice t Referred To Contact Radiology Diagnoses Myelodysplasia (myelodysplastic syndrome) (CMS/HCC) Procedures CT Guided Asp and Biopsy Bone Marrow Consult to Interventional Radiology Virgen Vargas MD 800 [facility] [address] [address] Phone: tel: fax: Referral ID Status Reason Start Date Expiration Date V isits Requested Visits Authorized [id number] Pending Review 01/15/2025 07/17/2026 1 1 * Genetic Testing (Routine) - Pending Review Specialty Diagnoses / Procedures Referred By Justice mcgee Referred To Contact Lab Diagnoses Myelodysplasia (myelodysplastic syndrome) (CMS/HCC) Procedures Cytogenetics Testing, Oncology Virgen Vargas MD [address] [address] Phone: tel: fax: Referral ID Status Reason Start Date Expiration Date V isits Requested Visits Authorized [id number] Pending Review 01/13/2025 07/15/2026 1 1 * Genetic Testing (Routine) - Authorized Specialty Diagnoses / Procedures Referred By Justice mcgee Referred To Contact Lab Diagnoses Myelodysplasia (myelodysplastic syndrome) (CMS/HCC) Procedures Leukemia/Lymphoma - Immunophenotyping by Flow Cytometry Virgen Vargas MD [address] [address] Phone: tel: fax: Referral ID Status Reason Start Date Expiration Date V isits Requested Visits Authorized [id number] Authorized 01/13/2025 07/15/2026 1 1 * Genetic Testing (Routine) - Authorized Specialty Diagnoses / Procedures Referred By Justice mcgee Referred To Contact Lab Diagnoses Myelodysplasia (myelodysplastic syndrome) (CMS/HCC) Procedures Bone marrow exam Virgen Vargas MD [address] [address] Phone: tel: fax: Referral ID Status Reason Start Date Expiration Date V isits Requested Visits Authorized [id number] Authorized 01/13/2025 07/15/2026 1 1 Reason for Visit * Reason Comments Follow-up Encounter Details Date Type Department Care Team (Latest Contact Info) Description 01/13/2025 10:00 AM EDT Office Visit [facility] Hematology/BMT and Cellular Therapy Program [address] [place] [address] Isaura Wynn, ESTRELLA [address] [address] Myelodysplasia (myelodysplastic syndrome) (CMS/HCC) (Primary [...] drink first t manav in the morning (EYE-CONTAINER CRANE OPERATOR) to steady your nerves or to [...] Not at all 01/13/2025 10:14 AM EDT [place], Cecelia W Feeling down, depressed, or hopeless Several days 01/13/2025 10:14 AM EDT [place], Cecelia W Patient Health Questionnaire -2 Score 1 01/13/2025 10:14 AM EDT [place], Cecelia W * Calculated C-SSRS Risk Score [...] 3: 12/16/24 Plan: Venetoclax rx sent to [facility]. Refills due monthly. Patient will return to clinic in 4 weeks. Will follow-up at that time. * Progress Notes - Isaura Wynn, OVERHEAD FOREMAN - 01/13/2025 10:00 AM EDT HEMATOLOGY ONCOLOGY [...] a preserved mata-T cell profile with a CD4:AV7wriju of 2.7:1. Polyclonal B-cells (3%) and a small plasma cell population (0.6%) were also identified. Cytogenetics: Normal. Molecular Testing: PCR for NPM1 and FLT3 mutations are negative. Next-generation sequencing (NGS) myeloid panel: ASXL1 - p.[id number] - VAF 25% TP53 - p.[id number] - VAF 36% U2AF1 - p.[id number] - VAF 33% 10/20/2024- started treatment with [...] [place]. 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 The third, and most promising, option would be enrollment in a clinical trial, ideally one that targets TP53- mutant disease or incorporates novel agents. He went to [facility] for a second opinion and to [...] daily., Disp: 90 tablet, Rfl: 3 HYDROcodone-acetaminophen (Windom) 5-325 MG tablet, Take 1 tablet by [...] Appointment [facility] A Interventional Radiology [address] [place] [address] 02/10/2025 8:30 AM EDT Clinical Support [facility] Hematology/BMT and Cellular Therapy Program [address] [place] [address] 02/10/2025 9:00 AM EDT Office Visit [facility] Hematology/BMT and Cellular Therapy Program [address] [place] [address] Elaina Boss PA 800 [facility] [address] [place] [phone] 02/10/2025 10:30 AM EDT Appointment [facility] In[facility] 1 [address] [place] [address] 02/11/2025 2:00 PM EDT Appointment [facility] 1 [address] [place] [address] 02/12/2025 2:00 PM EDT Appointment [facility] 1 [address] [place] [address] 02/13/2025 2:00 PM EDT Appointment [facility] 1 [address] [place] [phone] 02/14/2025 2:00 PM EDT Appointment [facility] 1 [address] [place] [phone] 03/10/2025 8:30 AM EDT Clinical Support [facility] Hematology/BMT and Cellular Therapy Program [address] [phone] 03/10/2025 9:00 AM EDT Office Visit [facility] Hematology/BMT and Cellular Therapy Program [address] [phone] Isaura Wynn, OVERHEAD FOREMAN 800 [facility] [address] [place] [phone] 03/10/2025 11:20 AM EDT Office Visit Pav CC Head, Neck & Respiratory 800 [facility], 2nd [place] [phone] Elsa Razo, OVERHEAD FOREMAN [address] [place] [phone] Scheduled Orders Name Type Priority Associated Diagnoses Order Schedule CBC and differential Lab Routine Myelodysplasia (myelodysplastic syndrome) (CMS/HCC) Expected: 01/20/2025, Expires: 01/20/2026 Comprehensive metabolic panel Lab Routine Myelodysplasia (myelodysplastic syndrome) ([facility] Expected: 01/20/2025, Expires: 01/20/2026 CBC and differential Lab Routine Myelodysplasia (myelodysplastic syndrome) ([facility]) Expected: 01/22/2025, Expires: 01/22/2026 CBC and differential Lab Routine Myelodysplasia (myelodysplastic syndrome) ([facility]) Expected: 01/24/2025, Expires: 01/24/2026 CBC and differential Lab Routine Myelodysplasia (myelodysplastic syndrome) ([facility]) Expected: 01/27/2025, Expires: 01/27/2026 Comprehensive metabolic panel Lab Routine Myelodysplasia (myelodysplastic syndrome) ([facility]) Expected: 01/27/2025, Expires: 01/27/2026 CBC and differential Lab Routine Myelodysplasia (myelodysplastic syndrome) ([facility]) Expected: 01/29/2025, Expires: 01/29/2026 CBC and differential Lab Routine Myelodysplasia (myelodysplastic syndrome) ([facility]) Expected: 01/31/2025, Expires: 01/31/2026 CBC and differential Lab Routine Myelodysplasia (myelodysplastic syndrome) ([facility]) Expected: 02/03/2025, Expires: 02/03/2026 Comprehensive metabolic panel Lab Routine Myelodysplasia (myelodysplastic syndrome) ([facility]) Expected: 02/03/2025, Expires: 02/03/2026 CBC and differential Lab Routine Myelodysplasia (myelodysplastic syndrome) ([facility]) Expected: 02/05/2025, Expires: 02/05/2026 CBC and differential Lab Routine Myelodysplasia (myelodysplastic syndrome) ([facility]) Expected: 02/07/2025, Expires: 02/07/2026 Bone marrow exam Pathology and Cytology Routine Myelodysplasia (myelodysplastic syndrome) ([facility]) Expected: 01/13/2025 (Approximate), Expires: 07/17/2026 Leukemia/Lymphoma - Immunophenotyping by Flow Cytometry Lab Routine Myelodysplasia (myelodysplastic syndrome) ([facility]) Expected: 01/13/2025 (Approximate), Expires: 07/17/2026 Cytogenetics Testing, [...] LAB HEMATOLOGY METHOD 01/17/2025 9:[address] [facility] RBC Count 2.55(L) 4.60 - 6.10 10*6/uL LAB HEMATOLOGY METHOD 01/17/2025 9:[address] [facility] HGB 7.6(L) 13.7 - 17.5 g/dL LAB HEMATOLOGY METHOD 01/17/2025 9:[address] [facility] HCT 21.6(L) 40.0 - 51.0 % LAB HEMATOLOGY METHOD 01/17/2025 9:[address] [facility] Platelet Count 23(L) 155 - 369 10*3/uL LAB HEMATOLOGY METHOD 01/17/2025 9:[address] [facility] MCV 85 79 - 98 fL LAB HEMATOLOGY METHOD 01/17/2025 9:[address] [facility] MCH 29.8 26.0 - 32.0 pg LAB HEMATOLOGY METHOD 01/17/2025 9:[address] [facility] MCHC 35.2 30.7 - 35.5 g/dL LAB HEMATOLOGY METHOD 01/17/2025 9:[address] [facility] RDW 14.2 11.5 - 14.5 % LAB HEMATOLOGY METHOD 01/17/2025 9:[address] [facility] MPV 9.0 8.8 - 12.5 fL LAB HEMATOLOGY METHOD 01/17/2025 9:[address] [facility] nRBC 0.0 <=0.0 per 100 WBCs LAB HEMATOLOGY METHOD 01/17/2025 9:[address] [facility] Differential Type Automated LAB HEMATOLOGY METHOD 01/17/2025 9:[address] [facility] Neutrophils % 7 % LAB HEMATOLOGY METHOD 01/17/2025 9:[address] [facility] Lymphocytes % 91 % LAB HEMATOLOGY METHOD 01/17/2025 9:[address] [facility] Monocytes % 2 % LAB HEMATOLOGY METHOD 01/17/2025 9:[address] [facility] Eosinophils % 0 % LAB HEMATOLOGY METHOD 01/17/2025 9:[address] [facility] Basophils % 0 % LAB HEMATOLOGY METHOD 01/17/2025 9:[address] [facility] Immature Granulocytes % 0 % LAB HEMATOLOGY METHOD 01/17/2025 9:[address] [facility] Neutrophils Absolute 0.04(LL) 1.60 - 6.10 10*3/uL LAB HEMATOLOGY METHOD 01/17/2025 9:41 AM EDT [facility] Lymphocytes Absolute 0.49(L) 1.20 - 3.90 10*3/uL LAB HEMATOLOGY METHOD 01/17/2025 9:41 AM EDT [facility] Monocytes Absolute 0.01(L) 0.30 - 0.90 10*3/uL LAB HEMATOLOGY METHOD 01/17/2025 9:[address] [facility] Eosinophils Absolute 0.00 0.00 - 0.50 10*3/uL LAB HEMATOLOGY METHOD 01/17/2025 9:41 AM EDT [facility] Basophils Absolute 0.00 0.00 - 0.10 10*3/uL LAB HEMATOLOGY METHOD 01/17/2025 9:[address] [facility] Immature Granulocytes Absolute 0.00 0.00 - 0.06 10*3/uL LAB HEMATOLOGY METHOD 01/17/2025 9:[address] [facility] Blood Blood sample taken from central line / Unknown (Port) Long-term Catheter / Unknown 01/17/2025 8:03 AM EDT 01/17/2025 8:[address] [facility] - 01/17/2025 9:41 AM EDT Therapeutic decision making should be based on absolute values, rather than percentages. us Virgen Vargas MD LAB BLOOD ORDERABLES Final Re sult Performing Organization Address City/[facility]/ZIP Co de Phone Number [facility] [address] [place] [address] * LACTATE DEHYDROGENASE (01/15/2025 8:17 AM EDT) LDH, Plasma 192 116 - 250 U/L 01/15/2025 9:[address] [facility] Blood Blood sample taken from central line / Unknown (Port) Long-term Catheter / Unknown 01/15/2025 8:17 AM EDT 01/15/2025 8:47 AM EDT us Virgen Vargas MD LAB BLOOD ORDERABLES Final Re sult Performing Organization Address [facility] Co de Phone Number [facility] [address] [place] [address] * Magnesium (01/15/2025 8:17 AM EDT) Magnesium, Plasma 2.2 1.9 - 2.4 mg/dL 01/15/2025 9:[address] [facility] Blood Blood sample taken from central line / Unknown (Port) Long-term Catheter / Unknown 01/15/2025 8:17 AM EDT 01/15/2025 8:47 AM EDT us Virgen Vargas MD LAB BLOOD ORDERABLES Final Re sult Performing Organization Address City/[facility] Co de Phone Number [facility] [address] [place] [address] * Phosphorus (01/15/2025 8:17 AM EDT) Phosphorus, Plasma 3.1 2.5 - 4.5 mg/dL 01/15/2025 9:[address] [facility] Blood Blood sample taken from central line / Unknown (Port) Long-term Catheter / Unknown 01/15/2025 8:17 AM EDT 01/15/2025 8:47 AM EDT Virgen Vargas MD LAB BLOOD ORDERABLES Final Re sult Performing Organization Address [facility] Co de Phone Number [facility] [address] [place] [address] * (ABNORMAL) Uric acid (01/15/2025 8:17 AM EDT) Uric Acid, Plasma 3.0(L) 3.7 - 8.0 mg/dL 01/15/2025 9:[address] [facility] Blood Blood sample taken from central line / Unknown (Port) Long-term Catheter / Unknown 01/15/2025 8:17 AM EDT 01/15/2025 8:47 AM EDT Virgen Vargas MD LAB BLOOD ORDERABLES Final Re sult Performing Organization Address [facility] Co de Phone Number [facility] [address] [place] [address] * (ABNORMAL) BASIC METABOLIC PANEL (01/15/2025 8:17 AM EDT) Glucose, Plasma 96 74 - 99 mg/dL 01/15/2025 9:[address] [facility] BUN, Plasma 12 8 - 23 mg/dL 01/15/2025 9:[address] [facility] Creatinine, Plasma 0.71 0.70 - 1.20 mg/dL 01/15/2025 9:[address] [facility] BUN/Creatinine Ratio 17 01/15/2025 9:[address] [facility] Sodium, Plasma 139 136 - 145 mmol/L 01/15/2025 9:[address] [facility] Potassium, Plasma 4.1 3.6 - 4.9 mmol/L 01/15/2025 9:[address] [facility] Chloride, Plasma 108(H) 97 - 107 mmol/L 01/15/2025 9:[address] [facility] CO2, Plasma 21(L) 22 - 29 mmol/L 01/15/2025 9:[address] [facility] Anion Gap 10 6 - 16 mmol/L 01/15/2025 9:[address] [facility] Total Calcium, Plasma 8.9 8.9 - 10.2 mg/dL 01/15/2025 9:[address] [facility] eGFRcr 99.3 mL/min/1.7 3m*2 01/15/2025 9:[address] [facility] [...] sult [facility] [address] [place] [address] * (ABNORMAL) CBC and differential (01/15/2025 8:17 AM EDT) WBC Count 0.53(LL) 3.70 - 10.30 10*3/uL LAB HEMATOLOGY METHOD 01/15/2025 11:[address] [facility] RBC Count 2.82(L) 4.60 - 6.10 10*6/uL LAB HEMATOLOGY METHOD 01/15/2025 11:[address] [facility] HGB 8.2(L) 13.7 - 17.5 g/dL LAB HEMATOLOGY METHOD 01/15/2025 11:[address] [facility] HCT 24.0(L) 40.0 - 51.0 % LAB HEMATOLOGY METHOD 01/15/2025 11:[address] [facility] Platelet Count 18(LL) 155 - 369 10*3/uL LAB HEMATOLOGY METHOD 01/15/2025 11:[address] [facility] MCV 85 79 - 98 fL LAB HEMATOLOGY METHOD 01/15/2025 11:[address] [facility] MCH 29.1 26.0 - 32.0 pg LAB HEMATOLOGY METHOD 01/15/2025 11:[address] [facility] MCHC 34.2 30.7 - 35.5 g/dL LAB HEMATOLOGY METHOD 01/15/2025 11:[address] [facility] RDW 14.2 11.5 - 14.5 % LAB HEMATOLOGY METHOD 01/15/2025 11:[address] [facility] MPV 9.3 8.8 - 12.5 fL LAB HEMATOLOGY METHOD 01/15/2025 11:[address] [facility] nRBC 0.0 <=0.0 per 100 WBCs LAB HEMATOLOGY METHOD 01/15/2025 11:[address] [facility] Differential Type Automated LAB HEMATOLOGY METHOD 01/15/2025 11:[address] [facility] Neutrophils % 8 % LAB HEMATOLOGY METHOD 01/15/2025 11:[address] [facility] Lymphocytes % 88 % LAB HEMATOLOGY METHOD 01/15/2025 11:[address] [facility] Monocytes % 4 % LAB HEMATOLOGY METHOD 01/15/2025 11:[address] [facility] Eosinophils % 0 % LAB HEMATOLOGY METHOD 01/15/2025 11:[address] [facility] Basophils % 0 % LAB HEMATOLOGY METHOD 01/15/2025 11:[address] [facility] Immature Granulocytes % 0 % LAB HEMATOLOGY METHOD 01/15/2025 11:[address] [facility] Neutrophils Absolute 0.04(LL) 1.60 - 6.10 10*3/uL LAB HEMATOLOGY METHOD 01/15/2025 11:[address] [facility] Lymphocytes Absolute 0.47(L) 1.20 - 3.90 10*3/uL LAB HEMATOLOGY METHOD 01/15/2025 11:[address] [facility] Monocytes Absolute 0.02(L) 0.30 - 0.90 10*3/uL LAB HEMATOLOGY METHOD 01/15/2025 11:[address] [facility] Eosinophils Absolute 0.00 0.00 - 0.50 10*3/uL LAB HEMATOLOGY METHOD 01/15/2025 11:[address] [facility] Basophils Absolute 0.00 0.00 - 0.10 10*3/uL LAB HEMATOLOGY METHOD 01/15/2025 11:[address] [facility] Immature Granulocytes Absolute 0.00 0.00 - 0.06 10*3/uL LAB HEMATOLOGY METHOD 01/15/2025 11:[address] [facility] Blood Blood sample taken from central line / Unknown (Port) Long-term Catheter / Unknown 01/15/2025 8:17 AM EDT 01/15/2025 8:[address] [facility] - 01/15/2025 11:53 AM EDT Therapeutic decision making should be based on absolute values, rather than percentages. Virgen Vargas MD LAB BLOOD ORDERABLES Final Re sult Performing Organization Address City/[facility]/ZIP Co de Phone Number [facility] [address] [place] [address] * LACTATE DEHYDROGENASE (01/14/2025 9:06 AM EDT) LDH, Plasma 195 116 - 250 U/L 01/14/2025 9:[address] [facility] Blood Blood sample taken from central line / Unknown (Port) Long-term Catheter / Unknown 01/14/2025 9:06 AM EDT 01/14/2025 9:25 AM EDT Virgen Vargas MD LAB BLOOD ORDERABLES Final Re sult [facility] [address] [place] [address] * Magnesium (01/14/2025 9:06 AM EDT) Magnesium, Plasma 2.2 1.9 - 2.4 mg/dL 01/14/2025 9:[address] [facility] Blood Blood sample taken from central line / Unknown (Port) Long-term Catheter / Unknown 01/14/2025 9:06 AM EDT 01/14/2025 9:25 AM EDT Virgen Vagras MD LAB BLOOD ORDERABLES Final Re sult Performing Organization Address [facility]/ZIP Co de Phone Number [facility] [address] [place] [address] * Phosphorus (01/14/2025 9:06 AM EDT) Phosphorus, Plasma 3.6 2.5 - 4.5 mg/dL 01/14/2025 9:[address] [facility] Blood Blood sample taken from central line / Unknown (Port) Long-term Catheter / Unknown 01/14/2025 9:06 AM EDT 01/14/2025 9:25 AM EDT Virgen Vargas MD LAB BLOOD ORDERABLES Final Re sult Performing Organization Address [facility] Co de Phone Number [facility] [address] [place] [address] * (ABNORMAL) Uric acid (01/14/2025 9:06 AM EDT) Uric Acid, Plasma 3.0(L) 3.7 - 8.0 mg/dL 01/14/2025 9:[address] [facility] Blood Blood sample taken from central line / Unknown (Port) Long-term Catheter / Unknown 01/14/2025 9:06 AM EDT 01/14/2025 9:25 AM EDT Virgen Vargas MD LAB BLOOD ORDERABLES Final Re sult Performing Organization Address City/[facility]/ZIP Co de Phone Number [facility] [address] [place] [address] * (ABNORMAL) BASIC METABOLIC PANEL (01/14/2025 9:06 AM EDT) Glucose, Plasma 101(H) 74 - 99 mg/dL 01/14/2025 9:[address] [facility] BUN, Plasma 9 8 - 23 mg/dL 01/14/2025 9:[address] [facility] Creatinine, Plasma 0.71 0.70 - 1.20 mg/dL 01/14/2025 9:[address] [facility] BUN/Creatinine Ratio 13 01/14/2025 9:[address] [facility] Sodium, Plasma 140 136 - 145 mmol/L 01/14/2025 9:[address] [facility] Potassium, Plasma 4.3 3.6 - 4.9 mmol/L 01/14/2025 9:[address] [facility] Chloride, Plasma 110(H) 97 - 107 mmol/L 01/14/2025 9:[address] [facility] CO2, Plasma 21(L) 22 - 29 mmol/L 01/14/2025 9:[address] [facility] Anion Gap 9 6 - 16 mmol/L 01/14/2025 9:[address] [facility] Total Calcium, Plasma 8.6(L) 8.9 - 10.2 mg/dL 01/14/2025 9:[address] [facility] eGFRcr 99.3 mL/min/1.7 3m*2 01/14/2025 9:[address] [facility] Comment:Reported eGFRcr in m L/min/1.73m2 is based the CKD-EPI 2020 equation that does not use a race coefficient. Blood Blood sample taken from central line / Unknown (Port) Long-term Catheter / Unknown 01/14/2025 9:06 AM EDT 01/14/2025 9:25 AM EDT us iVrgen Vargas MD LAB BLOOD ORDERABLES Final Re sult [facility] [address] [place] [address] * (ABNORMAL) Comprehensive Metabolic Panel, Plasma (01/13/2025 10:02 AM EDT) Glucose, Plasma 104(H) 74 - 99 mg/dL 01/13/2025 10:[address] [facility] BUN, Plasma 9 8 - 23 mg/dL 01/13/2025 10:[address] [facility] Creatinine, Plasma 0.72 0.70 - 1.20 mg/dL 01/13/2025 10:[address] [facility] BUN/Creatinine Ratio 13 01/13/2025 10:[address] [facility] Sodium, Plasma 140 136 - 145 mmol/L 01/13/2025 10:[address] [facility] Potassium, Plasma 4.5 3.6 - 4.9 mmol/L 01/13/2025 10:[address] [facility] Chloride, Plasma 109(H) 97 - 107 mmol/L 01/13/2025 10:[address] [facility] CO2, Plasma 21(L) 22 - 29 mmol/L 01/13/2025 10:[address] [facility] Anion Gap 10 6 - 16 mmol/L 01/13/2025 10:[address] [facility] Total Calcium, Plasma 8.9 8.9 - 10.2 mg/dL 01/13/2025 10:[address] [facility] Total Protein 6.9 6.3 - 7.9 g/dL 01/13/2025 10:[address] [facility] Albumin, Plasma 4.1 3.5 - 5.2 g/dL 01/13/2025 10:[address] [facility] AST, Plasma 84(H) 10 - 50 U/L 01/13/2025 10:[address] [facility] ALT, Plasma 95(H) 10 - 50 U/L 01/13/2025 10:[address] [facility] Alkaline Phosphatase, Plasma 83 40 - 115 U/L 01/13/2025 10:[address] [facility] Total Bilirubin, Plasma 0.7 0.2 - 1.1 mg/dL 01/13/2025 10:[address] [facility] eGFRcr 98.9 mL/min/1.7 3m*2 01/13/2025 10:[address] [facility] Comment:Reported eGFRcr in m L/min/1.73m2 is based the CKD-EPI 2020 equation that does not use a race coefficient. Blood Blood sample taken from central line / Unknown (Port) Long-term Catheter / Unknown 01/13/2025 10:02 AM EDT 01/13/2025 10:24 AM EDT us Isaura Wynn APRN LAB BLOOD ORDERABLES Final Res ult [facility] [address] [place] [address] * (ABNORMAL) CBC and Differential (01/13/2025 10:02 AM EDT) WBC Count 0.63(LL) 3.70 - 10.30 10*3/uL LAB HEMATOLOGY METHOD 01/13/2025 10:50 AM EDT [facility] RBC Count 2.94(L) 4.60 - 6.10 10*6/uL LAB HEMATOLOGY METHOD 01/13/2025 10:50 AM EDT [facility] HGB 8.9(L) 13.7 - 17.5 g/dL LAB HEMATOLOGY METHOD 01/13/2025 10:50 AM EDT [facility] HCT 24.7(L) 40.0 - 51.0 % LAB HEMATOLOGY METHOD 01/13/2025 10:50 AM EDT [facility] Platelet Count 5(LL) 155 - 369 10*3/uL LAB HEMATOLOGY METHOD 01/13/2025 10:50 AM EDT [facility] MCV 84 79 - 98 fL LAB HEMATOLOGY METHOD 01/13/2025 10:50 AM EDT [facility] MCH 30.3 26.0 - 32.0 pg LAB HEMATOLOGY METHOD 01/13/2025 10:50 AM EDT [facility] MCHC 36.0(H) 30.7 - 35.5 g/dL LAB HEMATOLOGY METHOD 01/13/2025 10:50 AM EDT [facility] RDW 14.4 11.5 - 14.5 % LAB HEMATOLOGY METHOD 01/13/2025 10:50 AM EDT [facility] [facility] LAB HEMATOLOGY METHOD 01/13/2025 10:50 AM EDT [facility] Comment:Not Measured nRBC 0.0 <=0.0 per 100 WBCs LAB HEMATOLOGY METHOD 01/13/2025 10:50 AM EDT [facility] Differential Type Automated LAB HEMATOLOGY METHOD 01/13/2025 10:50 AM EDT [facility] Neutrophils % 3 % LAB HEMATOLOGY METHOD 01/13/2025 10:50 AM EDT [facility] Lymphocytes % 94 % LAB HEMATOLOGY METHOD 01/13/2025 10:50 AM EDT [facility] Monocytes % 3 % LAB HEMATOLOGY METHOD 01/13/2025 10:50 AM EDT [facility] Eosinophils % 0 % LAB HEMATOLOGY METHOD 01/13/2025 10:50 AM EDT [facility] Basophils % 0 % LAB HEMATOLOGY METHOD 01/13/2025 10:50 AM EDT [facility] Immature Granulocytes % 0 % LAB HEMATOLOGY METHOD 01/13/2025 10:50 AM EDT [facility] Neutrophils Absolute 0.02(LL) 1.60 - 6.10 10*3/uL LAB HEMATOLOGY METHOD 01/13/2025 10:50 AM EDT [facility] Lymphocytes Absolute 0.59(L) 1.20 - 3.90 10*3/uL LAB HEMATOLOGY METHOD 01/13/2025 10:50 AM EDT [facility] Monocytes Absolute 0.02(L) 0.30 - 0.90 10*3/uL LAB HEMATOLOGY METHOD 01/13/2025 10:50 AM EDT [facility] Eosinophils Absolute 0.00 0.00 - 0.50 10*3/uL LAB HEMATOLOGY METHOD 01/13/2025 10:50 AM EDT [facility] Basophils Absolute 0.00 0.00 - 0.10 10*3/uL LAB HEMATOLOGY METHOD 01/13/2025 10:50 AM EDT [facility] Immature Granulocytes Absolute 0.00 0.00 - 0.06 10*3/uL LAB HEMATOLOGY METHOD 01/13/2025 10:50 AM EDT [facility] Blood Blood sample taken from central line / Unknown (Port) Long-term Catheter / Unknown 01/13/2025 10:02 AM EDT 01/13/2025 10:15 AM EDT [facility] - 01/13/2025 10:50 AM EDT Therapeutic decision making should be based on absolute values, rather than percentages. us Isaura Wynn APRN LAB BLOOD ORDERABLES Final Res ult [facility] [address] [place] [address] documented in this encounter Visit Diagnoses Diagnosis [...] documented as of this encounter Care Teams Financial Service Professional Relationship Specialty Start Date End Date Zhao Harris MD [address] [place] [address] PCP - General 12/03/20 documented as of this encounter
--- OUTSIDE RECORDS SUMMARY | 2025-01-13 11:30 | XMS_ITS | Encounter Summary ---
Author Organization [facility] Address [address] [place] [address] Care Team Providers Care Assembler Latches And Springs Name Role Phone Zhao Harris MD Primary Care Provider + [phone] Reason for Visit * Episode Based Medications (Routine) - Authorized Specialty Diagnoses / Procedures Referred By Justice mcgee Referred To Contact Diagnoses Myelodysplasia (myelodysplastic syndrome) (CMS/HCC) Procedures Decitabine Daily x 5 / Venetoclax Every 28 Days Virgen Vargas MD 800 [facility] [address] [address] Phone: tel: fax: Virgen Vargas MD 800 [facility] [address] [address] Phone: tel: fax: Referral ID Status Reason Start Date Expiration Date V isits Requested Visits Authorized [id number] Authorized 01/13/2025 07/15/2026 1 30 Encounter Details Date Type Department Care Team (Latest Contact Info) Description 01/13/2025 11:30 AM EDT - 01/13/2025 11:59 PM EDT Hospital Encounter PAV H Infusion 800 [place] [phone] Myelodysplasia (myelodysplastic syndrome) (CMS/HCC) (Primary Dx); Thrombocytopenia [...] drink first t manav in the morning (EYE-SYNCHRONOUS MOTOR ASSEMBLER) to steady your nerves or to [...] MG tabletIndications :Coronary artery disease involving big sandy heart with angina pectoris, unspecified vessel or [...] SL tabletIndications :Coronary artery disease involving big sandy heart with angina pectoris, unspecified vessel or [...] Appointment PAV A Interventional Radiology [address] [place] [address] 02/10/2025 8:30 AM EDT Clinical Support PAV Hematology/BMT and Cellular Therapy Program [address] [address] 02/10/2025 9:00 AM EDT Office Visit PAV Hematology/BMT and Cellular Therapy Program [address] [address] Elaina Boss PA 800 [facility] [address] [place] [address] 02/10/2025 10:30 AM EDT Appointment [facility] Infusion Clinic 1 744 [place] [address] 02/11/2025 2:00 PM EDT Appointment [facility] Infusion Clinic 1 7[address] [place] [address] 02/12/2025 2:00 PM EDT Appointment [facility] Infusion Clinic 1 7[address] [place] [address] 02/13/2025 2:00 PM EDT Appointment [facility] Infusion Clinic 1 7[address] [place] [address] 02/14/2025 2:00 PM EDT Appointment [facility] Infusion Clinic 1 7[address] [place] [address] 03/10/2025 8:30 AM EDT Clinical Support PAV CC Hematology/BMT and Cellular Therapy Program [address] [address] 03/10/2025 9:00 AM EDT Office Visit PAV Hematology/BMT and Cellular Therapy Program [address] [address] Isaura Wynn, COVERAGE SPECIALIST 800 [facility] [address] [place] [address] 03/10/2025 11:20 AM EDT Office Visit Pav CC Head, Neck & Respiratory 800 [facility], 2nd [place] [address] Elsa Razo, COVERAGE SPECIALIST 800 [place] [address] documented as of this encounter Procedures Procedure [...] Transfuse platelets (01/13/2025 2:36 PM EDT) Result [facility] Kayli Daly Janetallegraaxel CHIU BLOOD TRANSFUSION ORDERA BLES Final Result * Transfuse platelets: 1 Units (01/13/2025 2:36 PM EDT) Kayli Daly Janetallegraaxel CHIU BLOOD TRANSFUSION ORDERA BLES Final Result * (ABNORMAL) Platelet count (01/13/2025 2:07 PM EDT) Platelet Count 39(L) 155 - 369 10*3/uL LAB HEMATOLOGY METHOD 01/13/2025 2:37 PM EDT [facility] Blood Venous blood specimen / Unknown Venipuncture / Unknown 01/13/2025 2:07 PM EDT 01/13/2025 2:30 PM EDT Result [facility] Virgen Vargas MD LAB BLOOD ORDERABLES Final Re sult [facility] [address] [place] [address] * Exception to Standard Practice, Pathologist Interpretation [...] ORDERAB LES Final Result Performing Organization Address [facility] de Phone Number BLOOD BANK [address] * Prepare Leukocyte Reduced Platelets: 1 Units (01/13/2025 12:07 PM EDT) Product Code [id number] CH BLOO D BANK Dispense Status Transfused BLOOD BANK Blood Expiration Date [id number] BLOOD BANK Unit Number [id number] CH B LOOD BANK Product Blood Type 6200 BLOOD BANK Blood Type A+ BLOOD BANK Blood Venous blood specimen / Unknown Kayli CHIU BLOOD BANK PRODUCT ORDER VIKAS Final Result Performing Organization Address [facility] de Phone Number BLOOD BANK [address] documented in this encounter Visit Diagnoses [...] documented as of this encounter Care Teams Assembler Latches And Springs Relationship Specialty Start Date End Date Zhao Harris MD [address] [place] [address] PCP - General 12/03/20 documented as of this encounter
--- OUTSIDE RECORDS SUMMARY | 2025-01-14 08:07 | XMS_ITS | Encounter Summary ---
Author Organization [facility] Address [address] [place] [address] Care Team Providers Care Business Education Instructor Name Role Phone Zhao Harris MD Primary Care Provider + [phone] Reason for Visit * Episode Based Medications (Routine) - Authorized Specialty Diagnoses / Procedures Referred By Justice mcgee Referred To Contact Diagnoses Myelodysplasia (myelodysplastic syndrome) (CMS/HCC) Procedures Decitabine Daily x 5 / Venetoclax Every 28 Days Virgen Vargas MD [address] [address] Phone: tel: fax: Virgen Vargas MD [address] [address] Phone: tel: fax: Referral ID Status Reason Start Date Expiration Date V isits Requested Visits Authorized [id number] Authorized 01/13/2025 07/15/2026 1 30 Encounter Details Date Type Department Care Team (Latest Contact Info) Description 01/14/2025 8:07 AM EDT - 01/14/2025 11:59 PM EDT Hospital Encounter [facility] Infusion Clinic 1 [address] [place] [phone] Myelodysplasia (myelodysplastic syndrome) (CMS/HCC) (Primary Dx) Discharge [...] first t manav in the morning (EYE-RAILROAD SIGNAL AND SWITCH OPERATOR) to steady your nerves or to [...] daily. 90 tablet 3 09/11/2024 HYDROcodone-aceta minophen ([place]) 5-325 MG tablet Take 1 tablet by [...] Appointment PAV A Interventional Radiology [address] [place] [address] 02/10/2025 8:30 AM EDT Clinical Support PAV Hematology/BMT and Cellular Therapy Program [address] [place] [address] 02/10/2025 9:00 AM EDT Office Visit PAV Hematology/BMT and Cellular Therapy Program [address] [phone] Elaina Boss, ARAM 800 [facility] [address] [place] [phone] 02/10/2025 10:30 AM EDT Appointment [facility] Infusion Clinic 1 [address] [place] [phone] 02/11/2025 2:00 PM EDT Appointment [facility] Infusion Clinic 1 [address] [place] [address] 02/12/2025 2:00 PM EDT Appointment [facility] Infusion [facility] 1 [address] [place] [address] 02/13/2025 2:00 PM EDT Appointment [facility] Infusion Clinic 1 [address] [place] [address] 02/14/2025 2:00 PM EDT Appointment [facility] Infusion Clinic 1 [address] [place] [address] 03/10/2025 8:30 AM EDT Clinical Support [facility] Hematology/BMT and Cellular Therapy Program [address] [address] 03/10/2025 9:00 AM EDT Office Visit PAV Hematology/BMT and Cellular Therapy Program [address] [phone] Isaura Wynn, STOPE MINER 800 [facility] [address] [place] [phone] 03/10/2025 11:20 AM EDT Office Visit Pav CC Head, Neck & Respiratory 800 [facility], 2nd [place] [phone] Elsa Razo, STOPE MINER [address] [place] [phone] documented as of this encounter Procedures Procedure [...] LAB HEMATOLOGY METHOD 01/14/2025 10:14 AM EDT [facility] RBC Count 2.75(L) 4.60 - 6.10 10*6/uL LAB HEMATOLOGY METHOD 01/14/2025 10:14 AM EDT [facility] HGB 8.2(L) 13.7 - 17.5 g/dL LAB HEMATOLOGY METHOD 01/14/2025 10:14 AM EDT [facility] HCT 23.2(L) 40.0 - 51.0 % LAB HEMATOLOGY METHOD 01/14/2025 10:14 AM EDT [facility] Platelet Count 21(L) 155 - 369 10*3/uL LAB HEMATOLOGY METHOD 01/14/2025 10:14 AM EDT [facility] MCV 84 79 - 98 fL LAB HEMATOLOGY METHOD 01/14/2025 10:14 AM EDT [facility] MCH 29.8 26.0 - 32.0 pg LAB HEMATOLOGY METHOD 01/14/2025 10:14 AM EDT [facility] MCHC 35.3 30.7 - 35.5 g/dL LAB HEMATOLOGY METHOD 01/14[facility]2025 10:[facility] RDW 14.3 11.5 - 14.5 % LAB HEMATOLOGY METHOD 01/14/2025 10:14 AM EDT [facility] MPV 8.1(L) 8.8 - 12.5 fL LAB HEMATOLOGY METHOD 01/14/2025 10:14 AM EDT [facility] nRBC 0.0 <=0.0 per 100 WBCs LAB HEMATOLOGY METHOD 01/14/2025 10:14 AM EDT [facility] Differential Type Automated LAB HEMATOLOGY METHOD 01/14/2025 10:14 AM [facility] Neutrophils % 4 % LAB HEMATOLOGY METHOD 01/14/2025 10:14 AM EDT [facility] Lymphocytes % 92 % LAB HEMATOLOGY METHOD 01/14/2025 10:14 AM EDT [facility] Monocytes % 4 % LAB HEMATOLOGY METHOD 01/14/2025 10:14 AM [facility] Eosinophils % 0 % LAB HEMATOLOGY METHOD 01/14/2025 10:14 AM [facility] Basophils % 0 % LAB HEMATOLOGY METHOD 01/14/2025 10:14 AM [facility] Immature Granulocytes % 0 % LAB HEMATOLOGY METHOD 01/14/2025 10:14 AM [facility] Neutrophils Absolute 0.02(LL) 1.60 - 6.10 10*3/uL LAB HEMATOLOGY METHOD 01/14/2025 10:14 AM [facility] Lymphocytes Absolute 0.50(L) 1.20 - 3.90 10*3/uL LAB HEMATOLOGY METHOD 01/14/2025 10:14 AM [facility] Monocytes Absolute 0.02(L) 0.30 - 0.90 10*3/uL LAB HEMATOLOGY METHOD 01/14/2025 10:14 AM [facility] Eosinophils Absolute 0.00 0.00 - 0.50 10*3/uL LAB HEMATOLOGY METHOD 01/14/2025 10:14 AM EDT [facility] Basophils Absolute 0.00 0.00 - 0.10 10*3/uL LAB HEMATOLOGY METHOD 01/14/2025 10:14 AM [facility] Immature Granulocytes Absolute 0.00 0.00 - 0.06 10*3/uL LAB HEMATOLOGY METHOD 01/14/2025 10:14 AM [facility] Blood Blood sample taken from central line / Unknown (Port) Long-term Catheter / Unknown 01/14/2025 9:06 AM EDT 01/14/2025 9:14 AM EDT Narrative [facility]ALTH[facility]ARE LAB - 01/14/2025 10:14 AM EDT Therapeutic decision making should be based on absolute values, rather than percentages. us Virgen Vargas MD LAB BLOOD ORDERABLES Final Re sult [facility] [address] [place] [phone] * (ABNORMAL) BASIC METABOLIC PANEL (01/14/2025 9:06 [...] [facility] [place]/ZIP Co de Phone Number [facility] [address] [place] [address] * (ABNORMAL) Uric acid (01/14/2025 9:06 AM EDT) Uric Acid, Plasma 3.0(L) 3.7 - 8.0 mg/dL 01/14/2025 9:58 AM EDT [facility] Blood Blood sample taken from central line / Unknown (Port) Long-term Catheter / Unknown 01/14/2025 9:06 AM EDT 01/14/2025 9:25 AM EDT Virgen Vargas MD LAB BLOOD ORDERABLES Final Re sult Performing Organization Address City/[facility] [place] [address] * Phosphorus (01/14/2025 9:06 AM EDT) Phosphorus, Plasma 3.6 2.5 - 4.5 mg/dL 01/14/2025 9:58 AM EDT [facility] Blood Blood sample taken from central line / Unknown (Port) Long-term Catheter / Unknown 01/14/2025 9:06 AM EDT 01/14/2025 9:25 AM EDT Virgen Vargas MD LAB BLOOD ORDERABLES Final Re sult [facility] [address] [place] [address] * Magnesium (01/14/2025 9:06 AM EDT) Magnesium, Plasma 2.2 1.9 - 2.4 mg/dL 01/14/2025 9:[address] [facility] Blood Blood sample taken from central line / Unknown (Port) Long-term Catheter / Unknown 01/14/2025 9:06 AM EDT 01/14/2025 9:25 AM EDT Virgen Vargas MD LAB BLOOD ORDERABLES Final Re sult Performing Organization Address [facility] [place]/ZIP Co de Phone Number [facility] [address] [place] [address] * LACTATE DEHYDROGENASE (01/14/2025 9:06 AM EDT) LDH, Plasma 195 116 - 250 U/L 01/14/2025 9:[address] [facility] Blood Blood sample taken from central line / Unknown (Port) Long-term Catheter / Unknown 01/14/2025 9:06 AM EDT 01/14/2025 9:25 AM EDT Virgen Vargas MD LAB BLOOD ORDERABLES Final Re sult Performing Organization Address [facility] [place] [address] documented in this encounter Visit Diagnoses Diagnosis [...] as of this encounter Care Teams Business Education Instructor Relationship Specialty Start Date End Date Zhao Harris MD [address] [place] [address] PCP - General 12/03/20 documented as of this encounter
--- OUTSIDE RECORDS SUMMARY | 2025-01-15 08:11 | XMS_ITS | Encounter Summary ---
Author Organization [facility] Address [address] [place] [address] Care Team Providers Care Automated Equipment Engineer Technician Name Role Phone Zhao Harris MD Primary Care Provider + [phone] Reason for Visit * Episode Based Medications (Routine) - Authorized Specialty Diagnoses / Procedures Referred By Justice mcgee Referred To Contact Diagnoses Myelodysplasia (myelodysplastic syndrome) (CMS/HCC) Procedures Decitabine Daily x 5 / Venetoclax Every 28 Days Virgen Vargas MD 800 [facility] [address] [address] Phone: tel: fax: Virgen Vargas MD [address] [address] Phone: tel: fax: Referral ID Status Reason Start Date Expiration Date V isits Requested Visits Authorized [id number] Authorized 01/13/2025 07/15/2026 1 30 Encounter Details Date Type Department Care Team (Latest Contact Info) Description 01/15/2025 8:11 AM EDT - 01/15/2025 9:57 AM EDT Hospital Encounter [facility] H Infusion [address] [place] [id number] Myelodysplasia (myelodysplastic syndrome) (CMS/HCC) (Primary Dx); Thrombocytopenia [...] drink first t manav in the morning (EYE-PROPERTY UNDERWRITER) to steady your nerves or to get [...] 5 MG tabletIndications :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 [address] [place] [phone] 02/10/2025 10:30 AM EDT Appointment [facility] 1 [address] [place] [address] 02/11/2025 2:00 PM EDT Appointment [facility] 1 [address] [place] [address] 02/12/2025 2:00 PM EDT Appointment [facility] 1 [address] [place] [address] 02/13/2025 2:00 PM EDT Appointment [facility] 1 [address] [place] [address] 02/14/2025 2:00 PM EDT Appointment [facility] 1 [address] [place] [address] 03/10/2025 8:30 AM EDT Clinical Support [facility] Hematology/BMT and Cellular Therapy Program [address] [address] 03/10/2025 9:00 AM EDT Office Visit [facility] Hematology/BMT and Cellular Therapy Program [address] [phone] Isaura Wynn, PRESIDENT AND CHIEF OPERATING OFFICER 800 [facility] [address] [phone] 03/10/2025 11:20 AM EDT Office Visit Pav Head, Neck & Respiratory 800 [facility], [address]nd [place] [address] Damari Razosey Marquis, PRESIDENT AND CHIEF OPERATING OFFICER [address] [place] [address] documented as of this encounter Procedures Procedure [...] Signature, Exception to Standard Practice Reviewed by: Snajuanita Swann MD 01/16/2025 11:01 AM EDT BLOOD BANK LAB CP ASR DISCLAIMER No 01/16/2025 11:01 AM EDT BLOOD BANK Blood Bank Lab Only 01/15/2025 10:08 AM EDT 01/16/2025 8:44 AM EDT us Juwan Horton MD LAB BLOOD BANK TEST ORDERAB LES Final Result BLOOD BANK 800 [place] [address], * Prepare Leukocyte Reduced Platelets: 1 Units (01/15/2025 9:55 AM EDT) Product Code [id number] CH BLOO D BANK Dispense Status Transfused BLOOD BANK Blood Expiration Date [id number] BLOOD BANK Unit Number [id number] CH B LOOD BANK Product Blood Type 6200 BLOOD BANK Blood Type A+ BLOOD BANK Blood Venous blood specimen / Unknown us Kayli CHIU BLOOD BANK PRODUCT ORDER VIKAS Final Result BLOOD BANK [address] [place] [address], * (ABNORMAL) CBC and differential (01/15/2025 8:17 AM EDT) WBC Count 0.53(LL) 3.70 - 10.30 10*3/uL LAB HEMATOLOGY METHOD 01/15/2025 11:53 AM EDT [facility] RBC Count 2.82(L) 4.60 - 6.10 10*6/uL LAB HEMATOLOGY METHOD 01/15/2025 11:53 AM EDT [facility] HGB 8.2(L) 13.7 - 17.5 g/dL LAB HEMATOLOGY METHOD 01/15/2025 11:53 AM EDT [facility] HCT 24.0(L) 40.0 - 51.0 % LAB HEMATOLOGY METHOD 01/15/2025 11:53 AM EDT [facility] Platelet Count 18(LL) 155 - 369 10*3/uL LAB HEMATOLOGY METHOD 01/15/2025 11:53 AM EDT [facility] MCV 85 79 - 98 fL LAB HEMATOLOGY METHOD 01/15/2025 11:53 AM EDT [facility] MCH 29.1 26.0 - 32.0 pg LAB HEMATOLOGY METHOD 01/15/2025 11:53 AM EDT [facility] MCHC 34.2 30.7 - 35.5 g/dL LAB HEMATOLOGY METHOD 01/15/2025 11:53 AM EDT [facility] RDW 14.2 11.5 - 14.5 % LAB HEMATOLOGY METHOD 01/15/2025 11:53 AM EDT [facility] MPV 9.3 8.8 - 12.5 fL LAB HEMATOLOGY METHOD 01/15/2025 11:53 AM EDT [facility] nRBC 0.0 <=0.0 per 100 WBCs LAB HEMATOLOGY METHOD 01/15/2025 11:53 AM EDT [facility] Differential Type Automated LAB HEMATOLOGY METHOD 01/15/2025 11:53 AM EDT [facility] Neutrophils % 8 % LAB HEMATOLOGY METHOD 01/15/2025 11:53 AM EDT [facility] Lymphocytes % 88 % LAB HEMATOLOGY METHOD 01/15/2025 11:53 AM EDT [facility] Monocytes % 4 % LAB HEMATOLOGY METHOD 01/15/2025 11:53 AM EDT [facility] Eosinophils % 0 % LAB HEMATOLOGY METHOD 01/15/2025 11:53 AM EDT [facility] Basophils % 0 % LAB HEMATOLOGY METHOD 01/15/2025 11:53 AM EDT [facility] Immature Granulocytes % 0 % LAB HEMATOLOGY METHOD 01/15/2025 11:53 AM EDT [facility] Neutrophils Absolute 0.04(LL) 1.60 - 6.10 10*3/uL LAB HEMATOLOGY METHOD 01/15/2025 11:53 AM EDT [facility] Lymphocytes Absolute 0.47(L) 1.20 - 3.90 10*3/uL LAB HEMATOLOGY METHOD 01/15/2025 11:53 AM EDT [facility] Monocytes Absolute 0.02(L) 0.30 - 0.90 10*3/uL LAB HEMATOLOGY METHOD 01/15/2025 11:53 AM EDT [facility] Eosinophils Absolute 0.00 0.00 - 0.50 10*3/uL LAB HEMATOLOGY METHOD 01/15/2025 11:53 AM EDT [facility] Basophils Absolute 0.00 0.00 - 0.10 10*3/uL LAB HEMATOLOGY METHOD 01/15/2025 11:53 AM EDT [facility] Immature Granulocytes Absolute 0.00 0.00 - 0.06 10*3/uL LAB HEMATOLOGY METHOD 01/15/2025 11:53 AM EDT [facility] Blood Blood sample taken from central line / Unknown (Port) Long-term Catheter / Unknown 01/15/2025 8:17 AM EDT 01/15/2025 8:59 AM EDT [facility] - 01/15/2025 11:53 AM EDT Therapeutic decision making should be based on absolute values, rather than percentages. us Virgen Vargas MD LAB BLOOD ORDERABLES Final Re sult [facility] [address] [place] [address] * (ABNORMAL) BASIC METABOLIC PANEL (01/15/2025 8:17 AM EDT) Glucose, Plasma 96 74 - 99 mg/dL 01/15/2025 9:19 AM EDT [facility] BUN, Plasma 12 8 - 23 mg/dL 01/15/2025 9:19 AM EDT [facility] Creatinine, Plasma 0.71 0.70 - 1.20 mg/dL 01/15/2025 9:19 AM EDT [facility] BUN/Creatinine Ratio 17 01/15/2025 9:19 AM EDT [facility] Sodium, Plasma 139 136 - 145 mmol/L 01/15/2025 9:19 AM EDT [facility] Potassium, Plasma 4.1 3.6 - 4.9 mmol/L 01/15/2025 9:19 AM EDT [facility] Chloride, Plasma 108(H) 97 - 107 mmol/L 01/15/2025 9:19 AM EDT [facility] CO2, Plasma 21(L) 22 - 29 mmol/L 01/15/2025 9:19 AM EDT [facility] Anion Gap 10 6 - 16 mmol/L 01/15/2025 9:19 AM EDT [facility] Total Calcium, Plasma 8.9 8.9 - 10.2 mg/dL 01/15/2025 9:19 AM EDT [facility] eGFRcr 99.3 mL/min/1.7 3m*2 01/15/2025 9:19 AM EDT [facility] Comment:Reported eGFRcr in m L/min/1.73m2 is based the CKD-EPI 2020 equation that does not use a race coefficient. Blood Blood sample taken from central line / Unknown (Port) Long-term Catheter / Unknown 01/15/2025 8:17 AM EDT 01/15/2025 8:47 AM EDT us Virgen Vargas MD LAB BLOOD ORDERABLES Final Re sult [facility] [address] [place] [address] * (ABNORMAL) Uric acid (01/15/2025 8:17 AM EDT) Uric Acid, Plasma 3.0(L) 3.7 - 8.0 mg/dL 01/15/2025 9:19 AM EDT [facility] Blood Blood sample taken from central line / Unknown (Port) Long-term Catheter / Unknown 01/15/2025 8:17 AM EDT 01/15/2025 8:47 AM EDT Virgen Vargas MD LAB BLOOD ORDERABLES [place] [address] * Phosphorus (01/15/2025 8:17 AM EDT) Phosphorus, Plasma 3.1 2.5 - 4.5 mg/dL 01/15/2025 9:19 AM EDT [facility] Blood Blood sample taken from central line / Unknown (Port) Long-term Catheter / Unknown 01/15/2025 8:17 AM EDT 01/15/2025 8:47 AM EDT Virgen Vargas MD LAB BLOOD ORDERABLES [place] [address] * Magnesium (01/15/2025 8:17 AM EDT) Magnesium, Plasma 2.2 1.9 - 2.4 mg/dL 01/15/2025 9:19 AM EDT [facility] Blood Blood sample taken from central line / Unknown (Port) Long-term Catheter / Unknown 01/15/2025 8:17 AM EDT 01/15/2025 8:47 AM EDT Virgen Vargas MD LAB BLOOD ORDERABLES Final Re sult [facility] [address] [place] [address] * LACTATE DEHYDROGENASE (01/15/2025 8:17 AM EDT) LDH, Plasma 192 116 - 250 U/L 01/15/2025 9:19 AM EDT [facility] Blood Blood sample taken from central line / Unknown (Port) Long-term Catheter / Unknown 01/15/2025 8:17 AM EDT 01/15/2025 8:47 AM EDT us Virgen Vargas MD LAB BLOOD ORDERABLES Final [facility] Performing Organization Address [facility]/ZIP Co de Phone Number [facility] [address] [place] [address] documented in this encounter Visit Diagnoses Diagnosis [...] documented as of this encounter Care Teams Automated Equipment Engineer Technician Relationship Specialty Start Date End Date Zhao Harris MD [address] [place] [address] PCP - General 12/03/20 documented as of this encounter
--- OUTSIDE RECORDS SUMMARY | 2025-01-15 09:58 | XMS_ITS | Encounter Summary ---
Author Organization Healthcare Address [address] [place] [address] Care Team Providers Care Levee Superintendent Name Role Phone Zhao Harris MD Primary Care Provider [phone] Encounter Details Date Type Department Care Team (Latest Contact Info) Description 01/15/2025 9:58 AM EDT - 01/15/2025 11:59 PM EDT Hospital Encounter [facility]fusion [address] [place] [address] Discharge Disposition: Home or Self Care Social [...] drink first t manav in the morning (EYE-WASH TEST CHECKER) to steady your nerves or to [...] 5 MG tabletIndications :Coronary artery disease involving [place]velock heart with angina pectoris, unspecified vessel or lesion type (CMS/HCC),Hyperte nsion, unspecified type Take 1 tablet (5 mg) by mouth daily. 90 tablet 3 09/11/2024 HYDROcodone-aceta minophen ([place]) 5-325 MG tablet Take 1 tablet by [...] MG SL tabletIndications :Coronary artery disease involving [place]velock heart with angina pectoris, unspecified vessel or [...] Appointment [facility] Inter[facility] [address] [place] [address] 02/10/2025 8:30 AM EDT Clinical Support [facility] Hematology/BMT and Cellular Therapy Program [address] [address] 02/10/2025 9:00 AM EDT Office Visit [facility] Hematology/BMT and Cellular Therapy Program [address] [address] Elaina Boss, PA 800 [facility] [address] [place] [phone] 02/10/2025 10:30 AM EDT Appointment [facility] 1 [address] [place] [address] 02/11/2025 2:00 PM EDT Appointment [facility] 1 [address] [place] [address] 02/12/2025 2:00 PM EDT Appointment [facility] 1 [address] [place] [address] 02/13/2025 2:00 PM EDT Appointment [facility] 1 [address] [place] [address] 02/14/2025 2:00 PM EDT Appointment [facility] 1 [address] [place] [address] 03/10/2025 8:30 AM EDT Clinical Support [facility] Hematology/BMT and Cellular Therapy Program [address] [address] 03/10/2025 9:00 AM EDT Office Visit [facility] Hematology/BMT and Cellular Therapy Program [address] [address] Isaura Wynn, ESTRELLA 800 [facility] [address] [phone] 03/10/2025 11:20 AM EDT Office Visit [facility] Head[facility] Neck & Respiratory 800 [facility], 2nd [place] [phone] Elsa Razo, OFF TRACK BETTING MANAGER [address] [place] [phone] documented as of this encounter Visit Diagnoses [...] documented as of this encounter Care Teams Levee Superintendent Relationship Specialty Start Date End Date Zhao Harris MD [address] [place], [place] [phone] PCP - General 12/03/20 documented as of this encounter
--- OUTSIDE RECORDS SUMMARY | 2025-01-16 07:55 | XMS_ITS | Encounter Summary ---
Author Organization [facility] Address [address] [place] [address] Care Team Providers Care Nutrition Program Instructor Name Role Phone Zhao Harris MD Primary Care Provider + [phone] Reason for Visit * Episode Based Medications (Routine) - Authorized Specialty Diagnoses / Procedures Referred By Justice mcgee Referred To Contact Diagnoses Myelodysplasia (myelodysplastic syndrome) (CMS/HCC) Procedures Decitabine Daily x 5 / Venetoclax Every 28 Days Virgen Vargas MD 800 [facility] [address] [address] Phone: tel: fax: Virgen Vargas MD [address] [phone] Phone: tel: fax: Referral ID Status Reason Start Date Expiration Date V isits Requested Visits Authorized [id number] Authorized 01/13/2025 07/15/2026 1 30 Encounter Details Date Type Department Care Team (Latest Contact Info) Description 01/16/2025 7:55 AM EDT - 01/16/2025 11:59 PM EDT Hospital Encounter [facility] H Infusion 800 [place] [phone] Myelodysplasia (myelodysplastic syndrome) (CMS/HCC) (Primary Dx) Discharge [...] drink first t manav in the morning (EYE-COUNTY HOME DEMONSTRATOR) to steady your nerves or to [...] daily. 90 tablet 3 09/11/2024 HYDROcodone-aceta minophen ([place]) 5-325 MG tablet Take 1 tablet by [...] Appointment PAV A Interventional Radiology [address] [place] [address] 02/10/2025 8:30 AM EDT Clinical Support [facility] CC Hematology/BMT and Cellular Therapy Program [address] [place] [address] 02/10/2025 9:00 AM EDT Office Visit PAV Hematology/BMT and Cellular Therapy Program [address] [phone] Elaina Boss, PA 800 [facility] [address] [place] [phone] 02/10/2025 10:30 AM EDT Appointment [facility]fusion [facility] 1 744 [place] [address] 02/11/2025 2:00 PM EDT Appointment [facility] 1 [address] [place] [phone] 02/12/2025 2:00 PM EDT Appointment [facility] 1 [address] [place] [phone] 02/13/2025 2:00 PM EDT Appointment [facility] 1 [address] [place] [address] 02/14/2025 2:00 PM EDT Appointment [facility] 1 [address] [place] [address] 03/10/2025 8:30 AM EDT Clinical Support P[facility] Hematology/BMT and Cellular Therapy Program [address] [phone] 03/10/2025 9:00 AM EDT Office Visit PAV Hematology/BMT and Cellular Therapy Program [address] [phone] Isaura Wynn, ACTIVITIES DIRECTOR 800 [facility] [address] [place] [phone] 03/10/2025 11:20 AM EDT Office Visit Pav Head, Neck & Respiratory 800 [facility], 2nd [place] [phone] Elsa Razo, ACTIVITIES DIRECTOR 800 [place] [phone] documented as of this encounter Procedures Procedure Name Priority Date/Time Associated Diagnosis Comments TYPE AND SCREEN Routine 01/16/2025 9:54 AM EDT PLATELET COUNT, BLOOD STAT 01/16/2025 8:12 AM EDT CBC W/O DIFFERENTIAL STAT Add-on 01/16/2025 8:12 AM EDT documented in this encounter Results * Type and Screen (01/16/2025 9:54 AM EDT) Pathologist [facility] ABO/Rh O Negative 01/16/2025 9:51 AM EDT BLOOD BANK Antibody Screen Negative 01/16/2025 9:51 AM EDT BLOOD BANK Specimen Expiration 01/19/2025 23:59 01/16/2025 9:51 AM EDT BLOOD BANK Blood Venous blood specimen / Unknown Venipuncture / Unknown 01/16/2025 9:54 AM EDT 01/16/2025 10:02 AM EDT us Virgen Vargas MD LAB BLOOD BANK TEST ORDERABLE S Final Result BLOOD BANK 800 [place] [address], * (ABNORMAL) CBC W/O Differential (01/16/2025 8:12 AM EDT) WBC Count 0.49(LL) 3.70 - 10.30 10*3/uL LAB HEMATOLOGY METHOD 01/16/2025 11:30 AM EDT [facility] RBC Count 2.65(L) 4.60 - 6.10 10*6/uL LAB HEMATOLOGY METHOD 01/16/2025 11:30 AM EDT [facility] HGB 8.0(L) 13.7 - 17.5 g/dL LAB HEMATOLOGY METHOD 01/16/2025 11:30 AM EDT [facility] HCT 23.0(L) 40.0 - 51.0 % LAB HEMATOLOGY METHOD 01/16/2025 11:30 AM EDT [facility] Platelet Count 39(L) 155 - 369 10*3/uL LAB HEMATOLOGY METHOD 01/16/2025 11:30 AM EDT [facility] MCV 87 79 - 98 fL LAB HEMATOLOGY METHOD 01/16/2025 11:30 AM EDT [facility] MCH 30.2 26.0 - 32.0 pg LAB HEMATOLOGY METHOD 01/16/2025 11:30 AM EDT [facility] MCHC 34.8 30.7 - 35.5 g/dL LAB HEMATOLOGY METHOD 01/16/2025 11:30 AM EDT [facility] RDW 14.5 11.5 - 14.5 % LAB HEMATOLOGY METHOD 01/16/2025 11:30 AM EDT [facility] MPV 10.2 8.8 - 12.5 fL LAB HEMATOLOGY METHOD 01/16/2025 11:30 AM EDT [facility] nRBC 0.0 <=0.0 per 100 WBCs LAB HEMATOLOGY METHOD 01/16/2025 11:30 AM EDT [facility] Blood Blood sample taken from central line / Unknown Venipuncture / Unknown 01/16/2025 8:12 AM EDT 01/16/2025 8:27 AM EDT Virgen Vargas MD LAB BLOOD ORDERABLES Final Re sult [facility] 800 [place] [address] * (ABNORMAL) Platelet count (01/16/2025 8:12 AM EDT) Platelet Count 39(L) 155 - 369 10*3/uL LAB HEMATOLOGY METHOD 01/16/2025 8:38 AM EDT [facility] Blood Blood sample taken from central line / Unknown Venipuncture / Unknown 01/16/2025 8:12 AM EDT 01/16/2025 8:27 AM EDT Virgen Vargas MD LAB BLOOD ORDERABLES Final Re sult [facility] 800 [place] [address] documented in this encounter Visit Diagnoses Diagnosis [...] documented as of this encounter Care Teams Nutrition Program Instructor Relationship Specialty Start Date End Date Zhao Harris MD [address] [place] [address] [facility] [address] [place] [id number] PCP - General 12/03/20 documented as of this encounter
--- OUTSIDE RECORDS SUMMARY | 2025-01-17 07:45 | XMS_ITS | Encounter Summary ---
Author Organization [facility] Address [address] [place] [address] Care Team Providers Care Woodworking Machine Setter Name Role Phone Zhao Harris MD Primary Care Provider + [phone] Reason for Visit * Episode Based Medications (Routine) - Authorized Specialty Diagnoses / Procedures Referred By Justice mcgee Referred To Contact Diagnoses Myelodysplasia (myelodysplastic syndrome) (CMS/HCC) Procedures Decitabine Daily x 5 / Venetoclax Every 28 Days Virgen Vargas MD 800 [facility] Cancer [address] [address] Phone: tel: fax: Virgen Vargas MD [address] [address] Phone: tel: fax: Referral ID Status Reason Start Date Expiration Date V isits Requested Visits Authorized [id number] Authorized 01/13/2025 07/15/2026 1 30 Encounter Details Date Type Department Care Team (Latest Contact Info) Description 01/17/2025 7:45 AM EDT - 01/17/2025 11:59 PM EDT Hospital Encounter PAV H Infusion 800 [place] [phone] Myelodysplasia (myelodysplastic syndrome) (CMS/HCC) (Primary Dx); Thrombocytopenia [...] first t manav in the morning (EYE-DIRECTOR BIOLOGICS) to steady your nerves or to get [...] 5 MG tabletIndications :Coronary artery disease involving [place] heart with angina pectoris, unspecified vessel or lesion type (CMS/HCC),Hyperte nsion, unspecified type Take 1 tablet (5 mg) by mouth daily. 90 tablet 3 09/11/2024 HYDROcodone-aceta minophen ([place]) 5-325 MG tablet Take 1 tablet by [...] MG SL tabletIndications :Coronary artery disease involving [place] heart with angina pectoris, unspecified vessel or [...] Appointment PAV A Interventional Radiology [address] [place] [address] 02/10/2025 8:30 AM EDT Clinical Support PAV Hematology/BMT and Cellular Therapy Program [address] [place] [address] 02/10/2025 9:00 AM EDT Office Visit PAV Hematology/BMT and Cellular Therapy Program [address] [phone] Elaina Boss PA 800 [facility] [address] [place] [phone] 02/10/2025 10:30 AM EDT Appointment [facility] Infusion Clinic 1 744 [place] [address] 02/11/2025 2:00 PM EDT Appointment [facility] Infusion Clinic 1 744 [place] [address] 02/12/2025 2:00 PM EDT Appointment [facility] Infusion Clinic 1 [address]44 [place] [address] 02/13/2025 2:00 PM EDT Appointment [facility] Infusion Clinic 1 7[address] [place] [address] 02/14/2025 2:00 PM EDT Appointment [facility] Infusion Clinic 1 [address] [place] [address] 03/10/2025 8:30 AM EDT Clinical Support PAV Hematology/BMT and Cellular Therapy Program [address] [address] 03/10/2025 9:00 AM EDT Office Visit PAV Hematology/BMT and Cellular Therapy Program [address] [phone] Isaura Wynn, CLINICAL PROJECT LEADER 800 [facility] [address] [place] [phone] 03/10/2025 11:20 AM EDT Office Visit Pav CC Head, Neck & Respiratory 800 [facility], 2nd [place] [address] Elsa Razo, CLINICAL PROJECT LEADER 800 [place] [phone] documented as of this encounter Procedures Procedure [...] Units, Irradiated (01/17/2025 8:56 AM EDT) Pathologist [facility] Product Code [id number] BLOO D BANK Dispense Status Transfused BLOOD BANK Blood Expiration Date [id number] BLOOD BANK Unit Number [id number] B LOOD BANK Product Blood Type 9500 BLOOD BANK Blood Type O- BLOOD BANK Crossmatch Compatible BLOOD BANK Other Kayli CHIU BLOOD BANK PRODUCT ORDER VIKAS Final Result Performing Organization Address City/State/[facility] Co de Phone Number BLOOD BANK 800 [place] [address], * (ABNORMAL) CBC and differential (01/17/2025 8:03 AM EDT) WBC Count 0.54(LL) 3.70 - 10.30 10*3/uL LAB HEMATOLOGY METHOD 01/17/2025 9:41 AM EDT [facility] RBC Count 2.55(L) 4.60 - 6.10 10*6/uL LAB HEMATOLOGY METHOD 01/17/2025 9:41 AM EDT [facility] HGB 7.6(L) 13.7 - 17.5 g/dL LAB HEMATOLOGY METHOD 01/17/2025 9:41 AM EDT [facility] HCT 21.6(L) 40.0 - 51.0 % LAB HEMATOLOGY METHOD 01/17/2025 9:41 AM EDT [facility] Platelet Count 23(L) 155 - 369 10*3/uL LAB HEMATOLOGY METHOD 01/17/2025 9:41 AM EDT [facility] MCV 85 79 - 98 fL LAB HEMATOLOGY METHOD 01/17/2025 9:41 AM EDT [facility] MCH 29.8 26.0 - 32.0 pg LAB HEMATOLOGY METHOD 01/17/2025 9:41 AM EDT [facility] MCHC 35.2 30.7 - 35.5 g/dL LAB HEMATOLOGY METHOD 01/17/2025 9:41 AM EDT [facility] RDW 14.2 11.5 - 14.5 % LAB HEMATOLOGY METHOD 01/17/2025 9:41 AM EDT [facility] MPV 9.0 8.8 - 12.5 fL LAB HEMATOLOGY METHOD 01/17/2025 9:41 AM EDT [facility] nRBC 0.0 <=0.0 per 100 WBCs LAB HEMATOLOGY METHOD 01/17/2025 9:41 AM EDT [facility] Differential Type Automated LAB HEMATOLOGY METHOD 01/17/2025 9:41 AM EDT [facility] Neutrophils % 7 % LAB HEMATOLOGY METHOD 01/17/2025 9:41 AM EDT [facility] Lymphocytes % 91 % LAB HEMATOLOGY METHOD 01/17/2025 9:41 AM EDT [facility] Monocytes % 2 % LAB HEMATOLOGY METHOD 01/17/2025 9:41 AM EDT [facility] Eosinophils % 0 % LAB HEMATOLOGY METHOD 01/17/2025 9:41 AM EDT [facility] Basophils % 0 % LAB HEMATOLOGY METHOD 01/17/2025 9:41 AM EDT [facility] Immature Granulocytes % 0 % LAB HEMATOLOGY METHOD 01/17/2025 9:41 AM EDT [facility] Neutrophils Absolute 0.04(LL) 1.60 - 6.10 10*3/uL LAB HEMATOLOGY METHOD 01/17/2025 9:41 AM EDT [facility] Lymphocytes Absolute 0.49(L) 1.20 - 3.90 10*3/uL LAB HEMATOLOGY METHOD 01/17/2025 9:41 AM EDT [facility] Monocytes Absolute 0.01(L) 0.30 - 0.90 10*3/uL LAB HEMATOLOGY METHOD 01/17/2025 9:41 AM EDT [facility] Eosinophils Absolute 0.00 0.00 - 0.50 10*3/uL LAB HEMATOLOGY METHOD 01/17/2025 9:41 AM EDT [facility] Basophils Absolute 0.00 0.00 - 0.10 10*3/uL LAB HEMATOLOGY METHOD 01/17/2025 9:41 AM EDT [facility] Immature Granulocytes Absolute 0.00 0.00 - 0.06 10*3/uL LAB HEMATOLOGY METHOD 01/17/2025 9:41 AM EDT [facility] Blood Blood sample taken from central line / Unknown (Port) Long-term Catheter / Unknown 01/17/2025 8:03 AM EDT 01/17/2025 8:07 AM EDT Narrative [facility] - 01/17/2025 9:41 AM EDT Therapeutic decision making should be based on absolute values, rather than percentages. us Virgen Vargas MD LAB BLOOD ORDERABLES Final Re sult [facility] 800 [place] [address] documented in this encounter Visit Diagnoses Diagnosis [...] documented as of this encounter Care Teams Woodworking Machine Setter Relationship Specialty Start Date End Date Zhao Harris MD [address] [place] [address] PCP - General 12/03/20 documented as of this encounter
[2025-01-27] VITALS (10 sets, daily range): BP systolic 103–126; BP diastolic 62–80; PULSE 64–70; RESP 18; TEMP 36.4–36.7; O2SAT 98–100
[2025-01-27] MEDS: ACETAMINOPHEN 325MG TAB 650 MG (08:10)
--- OUTSIDE RECORDS SUMMARY | 2025-01-27 08:10 | XMS_ITS | Encounter Summary ---
Author Organization [facility] Address [address] [place] [address] Care Team Providers Care Care Coordinator Name Role Phone Zhao Harris MD Primary Care Provider [phone] Encounter Details Date Type Department Care Team [...] drink first t manav in the morning (EYE-DANCE THERAPIST) to steady your nerves or to [...] Upcoming Encounters Date Type Department Care Team ([facility] Contact Info) Description 02/02/2025 11:00 AM EDT Appointment PAV A Interventional Radiology [address] [place] [address] 02/10/2025 8:30 AM EDT Clinical Support P[facility] CC Hematology/BMT and Cellular Therapy Program [address] [place] [address] [place] [address] 02/10/2025 9:00 AM EDT Office Visit P[facility] CC Hematology/BMT and Cellular Therapy Program [address] [place] [phone] Elaina Boss, PA 800 [facility] [address] [place] [address] 02/10/2025 10:30 AM EDT Appointment [facility] 1 [address] [place] [address] 02/11/2025 2:00 PM EDT Appointment [facility] 1 [address] [place] [address] 02/12/2025 2:00 PM EDT Appointment [facility] 1 [address] [place] [address] 02/13/2025 2:00 PM EDT Appointment [facility] 1 [address] [place] [address] 02/14/2025 2:00 PM EDT Appointment [facility] 1 4 [place] [address] 03/10/2025 8:30 AM EDT Clinical Support [facility] CC Hematology/BMT and Cellular Therapy Program [address] [place] [address] [place] [address] 03/10/2025 9:00 AM EDT Office Visit P[facility] CC Hematology/BMT and Cellular Therapy Program [address] [place] [address] [place] [phone] Isaura Wynn, MANAGER THERAPY 800 [facility] [address]st [place] [address] 03/10/2025 11:20 AM EDT Office Visit Pav CC Head, Neck & Respiratory 800 [facility], 2nd [place] [address] Elsa Razo, MANAGER THERAPY 800 [place] [phone] documented as of this encounter Visit Diagnoses [...] as of this encounter Care Teams Care Coordinator Relationship Specialty Start Date End Date Zhao Harris MD 1210 [facility] [address] [place] [phone] PCP - General 12/03/20 documented as of this encounter
--- OUTSIDE RECORDS SUMMARY | 2025-01-27 08:10 | XMS_ITS | Encounter Summary ---
Author Organization [facility] Address [address] [place] [address] Care Team Providers Care Marine Fire Fighter Name Role Phone Zhao Harris MD Primary Care Provider [phone] Encounter Details Date Type Department Care Team [...] drink first t manav in the morning (EYE-GROOVING LATHE TENDER) to steady your nerves or to [...] Encounters Date Type Department Care Team ([facility] Contact Info) Description 02/02/2025 11:00 AM EDT Appointment PAV A Interventional Radiology [address] [place] [address] 02/10/2025 8:30 AM EDT Clinical Support P[facility] CC Hematology/BMT and Cellular Therapy Program [address] [place] [address] [place] [address] 02/10/2025 9:00 AM EDT Office Visit P[facility] CC Hematology/BMT and Cellular Therapy Program [address] [place] [phone] Elaina Boss, PA 800 [facility] [address] [place] [address] 02/10/2025 10:30 AM EDT Appointment [facility] 1 [address] [place] [address] 02/11/2025 2:00 PM EDT Appointment [facility] 1 [address] [place] [address] 02/12/2025 2:00 PM EDT Appointment [facility] 1 [address] [place] [address] 02/13/2025 2:00 PM EDT Appointment [facility] 1 [address] [place] [address] 02/14/2025 2:00 PM EDT Appointment [facility] 1 4 [place] [address] 03/10/2025 8:30 AM EDT Clinical Support [facility] Hematology/BMT and Cellular Therapy Program [address] [place] [address] [place] [address] 03/10/2025 9:00 AM EDT Office Visit P[facility] CC Hematology/BMT and Cellular Therapy Program [address] [place] [address] [place] [phone] Isaura Wynn, PRESS AND BLOW MACHINE TENDER 800 [facility] [address] [place] [address] 03/10/2025 11:20 AM EDT Office Visit Pav CC Head, Neck & Respiratory 800 [facility], 2nd [place] [address] Elsa Razo, PRESS AND BLOW MACHINE TENDER 800 [place] [address] documented as of this encounter Visit Diagnoses [...] documented as of this encounter Care Teams Marine Fire Fighter Relationship Specialty Start Date End Date Zhao Harris MD 1210 [facility] [address] [place] [address] PCP - General 12/03/20 documented as of this encounter
--- OUTSIDE RECORDS SUMMARY | 2025-01-27 08:10 | XMS_ITS | Encounter Summary ---
Author Organization [facility] Address [address] [place] [address] Care Team Providers Care Adjunct Psychology Instructor Name Role Phone Zhao Harris MD Primary Care Provider [phone] Encounter Details Date Type Department Care Team [...] drink first t manav in the morning (EYE-DIETARY CLERK) to steady your nerves or to [...] Encounters Date Type Department Care Team ([facility] Contact Info) Description 02/02/2025 11:00 AM EDT Appointment PAV A Interventional Radiology [address] [place] [address] 02/10/2025 8:30 AM EDT Clinical Support PAV CC Hematology/BMT and Cellular Therapy Program [address] [place] [address] [place] [address] 02/10/2025 9:00 AM EDT Office Visit PAV CC Hematology/BMT and Cellular Therapy Program [address] [place] [address] Elaina Boss, PA 800 [facility] [address] [place] [address] 02/10/2025 10:30 AM EDT Appointment [facility] Infusion [facility] 1 [address] [place] [address] 02/11/2025 2:00 PM EDT Appointment [facility] 1 [address] [place] [address] 02/12/2025 2:00 PM EDT Appointment [facility] 1 [address] [place] [address] 02/13/2025 2:00 PM EDT Appointment [facility] 1 [address] [place] [address] 02/14/2025 2:00 PM EDT Appointment [facility] 1 4 [place] [address] 03/10/2025 8:30 AM EDT Clinical Support P[facility] CC Hematology/BMT and Cellular Therapy Program [address] [place] [address] [place] [address] 03/10/2025 9:00 AM EDT Office Visit PAV CC Hematology/BMT and Cellular Therapy Program [address] [place] [address] [place] [address] Isaura Wynn, HYBRID POWERTRAIN DEVELOPMENT ENGINEER 800 [facility] [address]st [place] [address] 03/10/2025 11:20 AM EDT Office Visit Pav CC Head, Neck & Respiratory 800 [facility], 2nd [place] [address] Elsa Razo, HYBRID POWERTRAIN DEVELOPMENT ENGINEER 800 [place] [phone] documented as of this encounter Visit Diagnoses [...] documented as of this encounter Care Teams Adjunct Psychology Instructor Relationship Specialty Start Date End Date Zhao Harris MD 1210 [facility] [address] [place] [id number] PCP - General 12/03/20 documented as of this encounter
--- OUTSIDE RECORDS SUMMARY | 2025-01-27 08:10 | XMS_ITS | Encounter Summary ---
Author Organization [facility] Address [address] [place] [address] Care Team Providers Care Maintenance Technician 3Rd Shift Name Role Phone Zhao Harris MD Primary Care Provider [phone] Encounter Details Date Type Department Care Team [...] drink first t manav in the morning (EYE-ASSOCIATE PRODUCT MANAGER) to steady your nerves or to [...] Type Department Care Team ([facility] Contact Info) Description 02/02/2025 11:00 AM EDT Appointment PAV A Interventional Radiology [address] [place] [address] 02/10/2025 8:30 AM EDT Clinical Support PAV CC Hematology/BMT and Cellular Therapy Program [address] [place] [address] [place] [address] 02/10/2025 9:00 AM EDT Office Visit P[facility] CC Hematology/BMT and Cellular Therapy Program [address] [place] [address] Elaina Boss, PA 800 [facility] [address] [place] [address] 02/10/2025 10:30 AM EDT Appointment [facility] 1 744 [place] [address] 02/11/2025 2:00 PM EDT Appointment [facility] 1 [address] [place] [address] 02/12/2025 2:00 PM EDT Appointment [facility] 1 [address] [place] [address] 02/13/2025 2:00 PM EDT Appointment [facility] 1 [address] [place] [address] 02/14/2025 2:00 PM EDT Appointment [facility]fusion [facility] 1 4 [place] [address] 03/10/2025 8:30 AM EDT Clinical Support P[facility] CC Hematology/BMT and Cellular Therapy Program [address] [place] [address] [place] [address] 03/10/2025 9:00 AM EDT Office Visit PAV CC Hematology/BMT and Cellular Therapy Program [address] [place] [address] [place] [phone] Isaura Wynn, SENIOR PAYROLL MANAGER 800 [facility] [address] [place] [address] 03/10/2025 11:20 AM EDT Office Visit Pav CC Head, Neck & Respiratory 800 [facility], 2nd [place] [address] Elsa Razo, SENIOR PAYROLL MANAGER 800 [place] [address] documented as of this encounter Visit Diagnoses [...] documented as of this encounter Care Teams Maintenance Technician 3Rd Shift Relationship Specialty Start Date End Date Zhao Harris MD 1210 [facility] [address] [place] [id number] PCP - General 12/03/20 documented as of this encounter
--- OUTSIDE RECORDS SUMMARY | 2025-01-27 08:10 | XMS_ITS | Encounter Summary ---
Author Organization [facility] Address [address] [place] [address] Care Team Providers Care Stewardess Supervisor Name Role Phone Zhao Harris MD Primary Care Provider [phone] Encounter Details Date Type Department Care Team [...] first t manav in the morning (EYE-PATTERNMAKER ALL AROUND) to steady your nerves or to get [...] Care Team ([facility] Contact Info) Description 02/02/2025 11:00 AM EDT Appointment PAV A Interventional Radiology [address] [place] [address] 02/10/2025 8:30 AM EDT Clinical Support P[facility] CC Hematology/BMT and Cellular Therapy Program [address] [place] [address] [place] [address] 02/10/2025 9:00 AM EDT Office Visit P[facility] CC Hematology/BMT and Cellular Therapy Program [address] [place] [phone] Elaina Boss, PA 800 [facility] [address] [place] [address] 02/10/2025 10:30 AM EDT Appointment [facility]fusion [facility] 1 744 [place] [address] 02/11/2025 2:00 PM EDT Appointment [facility]fusion [facility] 1 [address] [place] [address] 02/12/2025 2:00 PM EDT Appointment [facility]fusion [facility] 1 [address] [place] [address] 02/13/2025 2:00 PM EDT Appointment [facility]fusion [facility] 1 [address] [place] [address] 02/14/2025 2:00 PM EDT Appointment [facility]fusion [facility] 1 4 [place] [address] 03/10/2025 8:30 AM EDT Clinical Support P[facility] CC Hematology/BMT and Cellular Therapy Program [address] [place] [address] [place] [address] 03/10/2025 9:00 AM EDT Office Visit P[facility] CC Hematology/BMT and Cellular Therapy Program [address] [place] [address] [place] [address] Isaura Wynn, RUBBISH COLLECTOR 800 [facility] [address] [place] [address] 03/10/2025 11:20 AM EDT Office Visit Pav CC Head, Neck & Respiratory 800 [facility], 2nd [place] [address] Elsa Razo, RUBBISH COLLECTOR 800 [place] [address] documented as of this encounter Visit Diagnoses [...] documented as of this encounter Care Teams Stewardess Supervisor Relationship Specialty Start Date End Date Zhao Harris MD 1210 [facility] [address] [place] [id number] PCP - General 12/03/20 documented as of this encounter
--- OUTSIDE RECORDS SUMMARY | 2025-01-27 08:10 | XMS_ITS | Encounter Summary ---
Author Organization [facility] Address [address] [place] [address] Care Team Providers Care Team Foreman Name Role Phone Zhao Harris MD Primary Care Provider [phone] Encounter Details Date Type Department Care Team [...] first t manav in the morning (EYE-LEAD FURNACE OPERATOR) to steady your nerves or to [...] Appointment PAV A Interventional Radiology [address] [place] [address] 02/10/2025 8:30 AM EDT Clinical Support P[facility] CC Hematology/BMT and Cellular Therapy Program [address] [address] 02/10/2025 9:00 AM EDT Office Visit PAV CC Hematology/BMT and Cellular Therapy Program [address] [address] Elaina Boss PA 800 [facility] [address] [place] [address] 02/10/2025 10:30 AM EDT Appointment [facility] Infusion [facility] 1 [address] [place] [address] 02/11/2025 2:00 PM EDT Appointment [facility] Infusion [facility] 1 [address] [place] [address] 02/12/2025 2:00 PM EDT Appointment [facility]fusion [facility] 1 [address] [place] [address] 02/13/2025 2:00 PM EDT Appointment [facility]fusion [facility] 1 [address] [place] [address] 02/14/2025 2:00 PM EDT Appointment [facility] Infusion [facility] 1 [address] [place] [address] 03/10/2025 8:30 AM EDT Clinical Support P[facility] CC Hematology/BMT and Cellular Therapy Program [address] [place] [address] 03/10/2025 9:00 AM EDT Office Visit PAV Hematology/BMT and Cellular Therapy Program [address] [address] Isaura Wynn, MARINE TOWER OPERATOR 800 [facility] [address] [place] [phone] 03/10/2025 11:20 AM EDT Office Visit Pav CC Head, Neck & Respiratory 800 [facility], 2nd [place] [address] Elsa Razo, MARINE TOWER OPERATOR 800 [place] [address] documented as of this encounter Visit Diagnoses [...] documented as of this encounter Care Teams Team Foreman Relationship Specialty Start Date End Date Zhao Harris MD 1210 [facility] [address] [address] PCP - General 12/03/20 documented as of this encounter
--- OUTSIDE RECORDS SUMMARY | 2025-01-27 08:10 | XMS_ITS | Encounter Summary ---
Author Organization [facility] Address [address] [place] [address] Care Team Providers Care Balance Screwhead Polisher Name Role Phone Zhao Harris MD Primary Care Provider [phone] Reason for Visit * Reason Comments Med Refill Encounter Details Date Type Department Care Team ([facility] st Contact Info) Description 01/01/2025 Refill [facility] 800 [facility]. [address] [place] [address] Ra Best MD [address] [place] [address] Social History Tobacco Use Types Packs/Day Years [...] drink first t manav in the morning (EYE-MODEL BUILDER) to steady your nerves or to [...] Appointment PAV A Interventional Radiology [address] [place] [address] 02/10/2025 8:30 AM EDT Clinical Support PAV Hematology/BMT and Cellular Therapy Program [address] [place] [address] 02/10/2025 9:00 AM EDT Office Visit PAV Hematology/BMT and Cellular Therapy Program [address] [address] Elaina Boss, ARAM 800 [facility] [address] [place] [address] 02/10/2025 10:30 AM EDT Appointment [facility] Infusion Clinic 1 744 [place] [address] 02/11/2025 2:00 PM EDT Appointment [facility] Infusion [facility] 1 [address] [place] [address] 02/12/2025 2:00 PM EDT Appointment [facility] Infusion [facility] 1 [address] [place] [address] 02/13/2025 2:00 PM EDT Appointment [facility] Infusion [facility] 1 [address] [place] [address] 02/14/2025 2:00 PM EDT Appointment [facility] Infusion [facility] 1 [address] [place] [address] 03/10/2025 8:30 AM EDT Clinical Support P[facility] CC Hematology/BMT and Cellular Therapy Program [address] [address] 03/10/2025 9:00 AM EDT Office Visit PAV CC Hematology/BMT and Cellular Therapy Program 750 [facility] [place] [address] Iasura Wynn, SHAPER MACHINE HAND 800 [facility] [address]st [place] [address] 03/10/2025 11:20 AM EDT Office Visit Pav CC Head, Neck & Respiratory 800 [facility], 2nd [place] [phone] Elsa Razo, SHAPER MACHINE HAND 800 [place] [phone] documented as of this encounter Visit Diagnoses [...] documented as of this encounter Care Teams Balance Screwhead Polisher Relationship Specialty Start Date End Date Zhao Harris MD 1210 [facility] [address] [place] [address] PCP - General 12/03/20 documented as of this encounter
--- OUTSIDE RECORDS SUMMARY | 2025-01-27 08:11 | XMS_ITS | Encounter Summary ---
Author Organization [facility] Address [address] [place] [address] Care Team Providers Care Electrophysiology Tech Name Role Phone Zhao Harris MD Primary Care Provider [phone] Encounter Details Date Type Department Care Team [...] first t manav in the morning (EYE-ENVIRONMENTAL ASSOCIATE) to steady your nerves or to [...] Upcoming Encounters Date Type Department Care Team ([facility] Contact Info) Description 02/02/2025 11:00 AM EDT Appointment PAV A Interventional Radiology [address] [place] [address] 02/10/2025 8:30 AM EDT Clinical Support PAV CC Hematology/BMT and Cellular Therapy Program [address] [place] [address] [place] [address] 02/10/2025 9:00 AM EDT Office Visit PAV CC Hematology/BMT and Cellular Therapy Program [address] [place] [address] Elaina Boss, PA 800 [facility] [address] [place] [address] 02/10/2025 10:30 AM EDT Appointment [facility] Infusion [facility] 1 744 [place] [address] 02/11/2025 2:00 PM EDT Appointment [facility] Infusion [facility] 1 [address] [place] [address] 02/12/2025 2:00 PM EDT Appointment [facility] Infusion [facility] 1 [address] [place] [address] 02/13/2025 2:00 PM EDT Appointment [facility] Infusion [facility] 1 [address] [place] [address] 02/14/2025 2:00 PM EDT Appointment [facility] Infusion [facility] 1 4 [place] [address] 03/10/2025 8:30 AM EDT Clinical Support PAV CC Hematology/BMT and Cellular Therapy Program [address] [place] [address] [place] [address] 03/10/2025 9:00 AM EDT Office Visit PAV CC Hematology/BMT and Cellular Therapy Program [address] [place] [address] [place] [address] Isaura Wynn, POWER SAW OPERATOR 800 [facility] [address] [place] [address] 03/10/2025 11:20 AM EDT Office Visit Pav CC Head, Neck & Respiratory 800 [facility], 2nd [place] [address] Elsa Razo, POWER SAW OPERATOR 800 [place] [address] documented as of this encounter Visit Diagnoses [...] documented as of this encounter Care Teams Electrophysiology Tech Relationship Specialty Start Date End Date Zhao Harris MD 1210 [facility] [address] [place] [id number] PCP - General 12/03/20 documented as of this encounter
--- OUTSIDE RECORDS SUMMARY | 2025-01-27 08:11 | XMS_ITS | Encounter Summary ---
Author Organization [facility] Address [address] [place] [address] Care Team Providers Care Auditing Coder Name Role Phone Zhao Harris MD Primary Care Provider [phone] Encounter Details Date Type Department Care Team [...] drink first t manav in the morning (EYE-BUDGET ANALYST) to steady your nerves or to [...] [facility] Contact Info) Description 02/02/2025 11:00 AM EDT Appointment PAV A Interventional Radiology [address] [place] [address] 02/10/2025 8:30 AM EDT Clinical Support PAV CC Hematology/BMT and Cellular Therapy Program [address] [place] [address] [place] [address] 02/10/2025 9:00 AM EDT Office Visit PAV CC Hematology/BMT and Cellular Therapy Program [address] [place] [phone] Elaina Boss, PA 800 [facility] [address] [place] [address] 02/10/2025 10:30 AM EDT Appointment [facility]fusion [facility] 1 744 [place] [address] 02/11/2025 2:00 PM EDT Appointment [facility] Infusion [facility] 1 744 [place] [address] 02/12/2025 2:00 PM EDT Appointment [facility] Infusion [facility] 1 744 [place] [address] 02/13/2025 2:00 PM EDT Appointment [facility] Infusion [facility] 1 [address] [place] [address] 02/14/2025 2:00 PM EDT Appointment [facility] Infusion [facility] 1 4 [place] [address] 03/10/2025 8:30 AM EDT Clinical Support P[facility] CC Hematology/BMT and Cellular Therapy Program [address] [place] [address] [place] [address] 03/10/2025 9:00 AM EDT Office Visit PAV CC Hematology/BMT and Cellular Therapy Program [address] [place] [address] [address] [place] [phone] Isaura Wynn, NEONATAL INTENSIVE CARE NURSE 800 [facility] [address] [place] [address] 03/10/2025 11:20 AM EDT Office Visit Pav CC Head, Neck & Respiratory 800 [facility], 2nd [place] [address] Elsa Razo, NEONATAL INTENSIVE CARE NURSE 800 [place] [address] documented as of this encounter Visit Diagnoses [...] documented as of this encounter Care Teams Auditing Coder Relationship Specialty Start Date End Date Zhao Harris MD 1210 [facility] [address] [place] [id number] PCP - General 12/03/20 documented as of this encounter
--- OUTSIDE RECORDS SUMMARY | 2025-01-27 08:11 | XMS_ITS | Encounter Summary ---
Author Organization [facility] Address [address] [place] [address] Care Team Providers Care Ironer Or Presser Name Role Phone Zhao Harris MD Primary Care Provider [phone] Encounter Details Date Type Department Care Team [...] drink first t manav in the morning (EYE-CHAR BELT OPERATOR) to steady your nerves or to [...] Care Team ([facility] Contact Info) Description 02/02/2025 11:00 AM EDT Appointment PAV A Interventional Radiology [address] [place] [address] 02/10/2025 8:30 AM EDT Clinical Support P[facility] CC Hematology/BMT and Cellular Therapy Program [address] [place] [address] [place] [address] 02/10/2025 9:00 AM EDT Office Visit PAV CC Hematology/BMT and Cellular Therapy Program [address] [place] [address] Elaina Boss, PA 800 [facility] [address] [place] [address] 02/10/2025 10:30 AM EDT Appointment [facility] Infusion [facility] 1 744 [place] [address] 02/11/2025 2:00 PM EDT Appointment [facility] Infusion [facility] 1 [address] [place] [address] 02/12/2025 2:00 PM EDT Appointment [facility] Infusion [facility] 1 [address] [place] [address] 02/13/2025 2:00 PM EDT Appointment [facility] Infusion [facility] 1 [address] [place] [address] 02/14/2025 2:00 PM EDT Appointment [facility] Infusion [facility] 1 4 [place] [address] 03/10/2025 8:30 AM EDT Clinical Support P[facility] CC Hematology/BMT and Cellular Therapy Program [address] [place] [address] [place] [address] 03/10/2025 9:00 AM EDT Office Visit P[facility] CC Hematology/BMT and Cellular Therapy Program [address] [place] [address] [place] [address] Isaura Wynn, GROCERY BAGGER 800 [facility] [address] [place] [address] 03/10/2025 11:20 AM EDT Office Visit Pav CC Head, Neck & Respiratory 800 [facility], 2nd [place] [address] Elsa Razo, GROCERY BAGGER 800 [place] [phone] documented as of this encounter Visit Diagnoses [...] documented as of this encounter Care Teams Ironer Or Presser Relationship Specialty Start Date End Date Zhao Harris MD 1210 [facility] [address] [place] [phone] PCP - General 12/03/20 documented as of this encounter
--- OUTSIDE RECORDS SUMMARY | 2025-01-27 08:11 | XMS_ITS | Encounter Summary ---
Author Organization [facility] Address [address] [place] [address] Care Team Providers Care Beef Grinder Name Role Phone Zhao Harris MD Primary Care Provider [phone] Encounter Details Date Type Department Care Team [...] first t manav in the morning (EYE-GAS CHECK PAD MAKER) to steady your nerves or to [...] [facility] Contact Info) Description 02/02/2025 11:00 AM EDT Appointment PAV A Interventional Radiology [address] [place] [address] 02/10/2025 8:30 AM EDT Clinical Support P[facility] CC Hematology/BMT and Cellular Therapy Program [address] [place] [address] [place] [address] 02/10/2025 9:00 AM EDT Office Visit P[facility] CC Hematology/BMT and Cellular Therapy Program [address] [place] [address] Elaina Boss, PA 800 [facility] [address] [place] [address] 02/10/2025 10:30 AM EDT Appointment [facility] 1 744 [place] [address] 02/11/2025 2:00 PM EDT Appointment [facility] Infusion [facility] 1 [address] [place] [address] 02/12/2025 2:00 PM EDT Appointment [facility] Infusion [facility] 1 [address] [place] [address] 02/13/2025 2:00 PM EDT Appointment [facility] Infusion [facility] 1 [address] [place] [address] 02/14/2025 2:00 PM EDT Appointment [facility] Infusion [facility] 1 4 [place] [address] 03/10/2025 8:30 AM EDT Clinical Support P[facility] CC Hematology/BMT and Cellular Therapy Program [address] [place] [address] [place] [address] 03/10/2025 9:00 AM EDT Office Visit PAV CC Hematology/BMT and Cellular Therapy Program [address] [place] [address] [place] [phone] Isaura Wynn, AEROTRIANGULATION SPECIALIST 800 [facility] [address] [place] [address] 03/10/2025 11:20 AM EDT Office Visit Pav CC Head, Neck & Respiratory 800 [facility], 2nd [place] [address] Elsa Razo, AEROTRIANGULATION SPECIALIST 800 [place] [address] documented as of this encounter Visit Diagnoses [...] documented as of this encounter Care Teams Beef Grinder Relationship Specialty Start Date End Date Zhao Harris MD 1210 [facility] [address] [place] [id number] PCP - General 12/03/20 documented as of this encounter
--- OUTSIDE RECORDS SUMMARY | 2025-01-27 08:11 | XMS_ITS | Encounter Summary ---
Author Organization [facility] Address [address] 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) Virgen Vargas MD [address] [address] Phone: tel:[phone] fax:[phone] [facility] 800 [place] [address] Phone: tel: fax: Referral ID Status Reason Start Date Expiration Date V isits Requested Visits Authorized [id number] Closed Specialty Services Required 12/11/2024 06/12/2026 1 1 Scheduling Instructions AML, evaluation for clinical trials * Consultation (Routine) - Closed Specialty Diagnoses / Procedures Referred By Justice mcgee Referred To Contact Medical Oncology Diagnoses 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) Virgen Vargas MD [address] [address] Phone: tel: fax: Referral ID Status Reason Start Date Expiration Date V isits Requested Visits Authorized [id number] Closed Specialty Services Required 12/11/2024 06/12/2026 1 1 Scheduling Instructions AML evaluation for clinical trials Encounter Details Date Type Department Care Team ([facility] Contact Info) Description 12/11/2024 Orders Only PAV CC Hematology/BMT and Cellular Therapy Program 750 [facility], [address] [place] [address] Shahla Mejia RN [facility] AMB SERV ADMIN Acute myeloid leukemia not [...] drink first t manav in the morning (EYE-ASTRONOMY DEPARTMENT CHAIR) to steady your nerves or to get [...] Care Team ([facility] Contact Info) Description 02/02/2025 11:00 AM EDT Appointment PAV A Interventional Radiology [address] [place] [address] 02/10/2025 8:30 AM EDT Clinical Support PAV Hematology/BMT and Cellular Therapy Program [address] [address] 02/10/2025 9:00 AM EDT Office Visit PAV Hematology/BMT and Cellular Therapy Program [address] [address] Elaina Boss, PA 800 [facility] [address] [place] [address] 02/10/2025 10:30 AM EDT Appointment [facility] Infusion [facility] 1 7[address] [place] [address] 02/11/2025 2:00 PM EDT Appointment [facility] 1 [address] [place] [address] 02/12/2025 2:00 PM EDT Appointment [facility] 1 7[address] [place] [address] 02/13/2025 2:00 PM EDT Appointment [facility] 1 [address] [place] [address] 02/14/2025 2:00 PM EDT Appointment [facility]fusion [facility] 1 7[address] [place] [address] 03/10/2025 8:30 AM EDT Clinical Support PAV Hematology/BMT and Cellular Therapy Program [address] [address] 03/10/2025 9:00 AM EDT Office Visit PAV Hematology/BMT and Cellular Therapy Program [address] [address] Isaura Wynn, SHIELD OPERATOR 800 [facility] [address] [place] [phone] 03/10/2025 11:20 AM EDT Office Visit Pav CC Head, Neck & Respiratory 800 [facility], 2nd [place] [address] Elsa Razo, SHIELD OPERATOR 800 [place] [address] Scheduled Referrals Name Type Priority Associated Diagnoses [...] documented as of this encounter Care Teams Panel Raiser Operator Relationship Specialty Start Date End Date Zhao Harris MD [address] [place] [address] PCP - General 12/03/20 documented as of this encounter
--- OUTSIDE RECORDS SUMMARY | 2025-01-27 08:11 | XMS_ITS | Encounter Summary ---
Author Organization [facility] Address [address] [place] [address] Care Team Providers Care Unit Tender Name Role Phone Zhao Harris MD Primary Care Provider [phone] Encounter Details Date Type Department Care Team [...] drink first t manav in the morning (EYE-AIRPORT OPERATIONS SPECIALIST) to steady your nerves or to [...] Care Team ([facility] Contact Info) Description 02/02/2025 11:00 AM EDT Appointment PAV A Interventional Radiology [address] [place] [address] 02/10/2025 8:30 AM EDT Clinical Support PAV CC Hematology/BMT and Cellular Therapy Program [address] [place] [address] [place] [address] 02/10/2025 9:00 AM EDT Office Visit P[facility] CC Hematology/BMT and Cellular Therapy Program [address] [place] [address] Elaina Boss, PA 800 [facility] [address] [place] [address] 02/10/2025 10:30 AM EDT Appointment [facility] 1 744 [place] [address] 02/11/2025 2:00 PM EDT Appointment [facility] 1 [address] [place] [address] 02/12/2025 2:00 PM EDT Appointment [facility]fusion [facility] 1 [address] [place] [address] 02/13/2025 2:00 PM EDT Appointment [facility]fusion [facility] 1 [address] [place] [address] 02/14/2025 2:00 PM EDT Appointment [facility]fusion [facility] 1 4 [place] [address] 03/10/2025 8:30 AM EDT Clinical Support P[facility] CC Hematology/BMT and Cellular Therapy Program [address] [place] [address] [place] [address] 03/10/2025 9:00 AM EDT Office Visit P[facility] CC Hematology/BMT and Cellular Therapy Program [address] [place] [address] [place] [address] Isaura Wynn, WET MILLING WHEEL OPERATOR 800 [facility] [address]st [place] [address] 03/10/2025 11:20 AM EDT Office Visit Pav CC Head, Neck & Respiratory 800 [facility], 2nd [place] [address] Elsa Razo, WET MILLING WHEEL OPERATOR 800 [place] [address] documented as of this encounter Visit Diagnoses [...] documented as of this encounter Care Teams Unit Tender Relationship Specialty Start Date End Date Zhao Harris MD 1210 [facility] [address] [place] [address] PCP - General 12/03/20 documented as of this encounter
--- OUTSIDE RECORDS SUMMARY | 2025-01-27 08:11 | XMS_ITS | Encounter Summary ---
Author Organization [facility] Address [address] [place] [address] Care Team Providers Care Soaker Hides Name Role Phone Zhao Harris MD Primary Care Provider [phone] Encounter Details Date Type Department Care Team (Late st Contact Info) Description 12/04/2024 Telephone [facility] Interventional Radiology [address] [place] [address] Martha William Social History Tobacco [...] drink first t manav in the morning (EYE-TICKET PULLER) to steady your nerves or to get [...] they need to bandage it. Requesting CB@ [phone] documented in this encounter Plan of Treatment Upcoming Encounters Date Type Department Care Team (Late st Contact Info) Description 02/02/2025 11:00 AM EDT Appointment PAV A Interventional Radiology [address] [place] [address] 02/10/2025 8:30 AM EDT Clinical Support PAV Hematology/BMT and Cellular Therapy Program [address] [address] 02/10/2025 9:00 AM EDT Office Visit PAV CC Hematology/BMT and Cellular Therapy Program [address] [address] Elaina Boss, ARAM 800 [facility] [address] [place] [address] 02/10/2025 10:30 AM EDT Appointment [facility] 1 [address] [place] [address] 02/11/2025 2:00 PM EDT Appointment [facility] 1 [address] [place] [address] 02/12/2025 2:00 PM EDT Appointment [facility] 1 [address] [place] [address] 02/13/2025 2:00 PM EDT Appointment [facility] 1 [address] [place] [address] 02/14/2025 2:00 PM EDT Appointment [facility] 1 [address] [place] [address] 03/10/2025 8:30 AM EDT Clinical Support PAV Hematology/BMT and Cellular Therapy Program [address] [address] 03/10/2025 9:00 AM EDT Office Visit PAV Hematology/BMT and Cellular Therapy Program [address] [address] Isaura Wynn, CELLULAR BIOLOGIST 800 [facility] 1st [place] [address] 03/10/2025 11:20 AM EDT Office Visit Pav CC Head, Neck & Respiratory 800 [facility], 2nd [place] [address] Elsa Razo, CELLULAR BIOLOGIST 800 [place] [address] documented as of this encounter Visit Diagnoses [...] documented as of this encounter Care Teams Soaker Hides Relationship Specialty Start Date End Date Zhao Harris MD [address] [address] PCP - General 12/03/20 documented as of this encounter
--- OUTSIDE RECORDS SUMMARY | 2025-01-27 08:11 | XMS_ITS | Encounter Summary ---
Author Organization [facility] Address [address] [place] [address] Care Team Providers Care Regional Administrative Assistant Name Role Phone Zhao Harris MD Primary Care Provider [phone] Encounter Details Date Type Department Care Team [...] first t manav in the morning (EYE-ASSISTANT TODDLER TEACHER) to steady your nerves or to [...] Appointment PAV A Interventional Radiology [address] [place] [address] 02/10/2025 8:30 AM EDT Clinical Support PAV Hematology/BMT and Cellular Therapy Program [address] [address] 02/10/2025 9:00 AM EDT Office Visit PAV Hematology/BMT and Cellular Therapy Program [address] [place] [address] Elaina Boss, ARAM 800 [facility] [address] [place] [address] 02/10/2025 10:30 AM EDT Appointment [facility] Infusion [facility] 1 [address] [place] [address] 02/11/2025 2:00 PM EDT Appointment [facility] Infusion [facility] 1 [address] [place] [address] 02/12/2025 2:00 PM EDT Appointment [facility] Infusion [facility] 1 [address] [place] [address] 02/13/2025 2:00 PM EDT Appointment [facility]fusion [facility] 1 [address] [place] [address] 02/14/2025 2:00 PM EDT Appointment [facility]fusion [facility] 1 [address] [place] [address] 03/10/2025 8:30 AM EDT Clinical Support PAV CC Hematology/BMT and Cellular Therapy Program 750 [facility], [address] [place] [address] 03/10/2025 9:00 AM EDT Office Visit PAV CC Hematology/BMT and Cellular Therapy Program 750 [facility], [address] [place] [address] Isaura Wynn, CUSTOMER SERVICE VOICE 800 [facility] [address] [place] [address] 03/10/2025 11:20 AM EDT Office Visit Pav CC Head, Neck & Respiratory 800 [facility], 2nd [place] [address] Elsa Razo, CUSTOMER SERVICE VOICE 800 [place] [address] documented as of this encounter Visit Diagnoses [...] documented as of this encounter Care Teams Regional Administrative Assistant Relationship Specialty Start Date End Date Zhao Harris MD 1210 [facility] [address] [place] [address] PCP - General 12/03/20 documented as of this encounter
--- OUTSIDE RECORDS SUMMARY | 2025-01-27 08:11 | XMS_ITS | Encounter Summary ---
Author Organization [facility] Address [address] [place] [address] Care Team Providers Care Gauger Chief Name Role Phone Zhao Harris MD Primary Care Provider [phone] Encounter Details Date Type Department Care Team ([facility] st Contact Info) Description 12/09/2024 Telephone PAV CC Hematology/BMT and Cellular Therapy Program [address] [place] [address] [place] [address] Essie Ricks RN [facility] HEMATOLOGY PROGRAM CLINIC Social History [...] first t manav in the morning (EYE-SUPERVISOR SECURITIES VAULT) to steady your nerves or to get [...] ([facility] st Contact Info) Description 02/02/2025 11:00 AM EDT Appointment PAV A Interventional Radiology [address] [place] [address] 02/10/2025 8:30 AM EDT Clinical Support PAV CC Hematology/BMT and Cellular Therapy Program [address] [address] 02/10/2025 9:00 AM EDT Office Visit PAV Hematology/BMT and Cellular Therapy Program [address] [place] [address] Elaina Boss, ARAM 800 [facility] [address] [place] [address] 02/10/2025 10:30 AM EDT Appointment [facility] Infusion Clinic 1 [address] [place] [address] 02/11/2025 2:00 PM EDT Appointment [facility] Infusion [facility] 1 [address] [place] [address] 02/12/2025 2:00 PM EDT Appointment [facility]fusion [facility] 1 [address] [place] [address] 02/13/2025 2:00 PM EDT Appointment [facility]fusion [facility] 1 [address] [place] [address] 02/14/2025 2:00 PM EDT Appointment [facility] Infusion [facility] 1 [address] [place] [address] 03/10/2025 8:30 AM EDT Clinical Support PAV Hematology/BMT and Cellular Therapy Program 750 [facility], [address] [place] [address] 03/10/2025 9:00 AM EDT Office Visit PAV CC Hematology/BMT and Cellular Therapy Program [address] [address] Isaura Wynn, CLINICAL ABSTRACTOR 800 [facility] [address] [place] [address] 03/10/2025 11:20 AM EDT Office Visit Pav CC Head, Neck & Respiratory 800 [facility], 2nd [place] [address] Elsa Razo, CLINICAL ABSTRACTOR 800 [place] [phone] documented as of this encounter Visit Diagnoses [...] documented as of this encounter Care Teams Gauger Chief Relationship Specialty Start Date End Date Zhao Harris MD 1210 [facility] [address] [place] [address] PCP - General 12/03/20 documented as of this encounter
--- OUTSIDE RECORDS SUMMARY | 2025-01-27 08:11 | XMS_ITS | Encounter Summary ---
Author Organization [facility] Address [address] [place] [address] Care Team Providers Care Photographic Process Worker Name Role Phone Zhao Harris MD Primary Care Provider [phone] Encounter Details Date Type Department Care Team ([facility] st Contact Info) Description 12/23/2024 Orders Only PAV CC Hematology/BMT and Cellular Therapy Program [address] [place] [address] [place] [address] Adam Conway RN [facility] HEMATOLOGY PROGRAM CLINIC Myelodysplasia (myelodysplastic syndrome) (CMS/HCC) [...] drink first t manav in the morning (EYE-CHILD AND ADOLESCENT PSYCHOLOGIST) to steady your nerves or to get [...] PAV A Interventional Radiology [address] [place] [address] 02/10/2025 8:30 AM EDT Clinical Support PAV Hematology/BMT and Cellular Therapy Program [address] [address] 02/10/2025 9:00 AM EDT Office Visit PAV Hematology/BMT and Cellular Therapy Program [address] [address] Elaina Boss, PA 800 [facility] [address] [place] [address] 02/10/2025 10:30 AM EDT Appointment [facility] Infusion Clinic 1 [address] [place] [address] 02/11/2025 2:00 PM EDT Appointment [facility] Infusion [facility] 1 [address] [place] [address] 02/12/2025 2:00 PM EDT Appointment [facility] Infusion [facility] 1 [address] [place] [address] 02/13/2025 2:00 PM EDT Appointment [facility] Infusion [facility] 1 [address] [place] [address] 02/14/2025 2:00 PM EDT Appointment [facility] Infusion [facility] 1 [address] [place] [address] 03/10/2025 8:30 AM EDT Clinical Support PAV CC Hematology/BMT and Cellular Therapy Program 750 [facility], [address] [place] [address] [place] [address] 03/10/2025 9:00 AM EDT Office Visit PAV CC Hematology/BMT and Cellular Therapy Program 750 [facility] [place] [address] Isaura Wynn, INSTRUCTIONAL RESOURCE TEACHER 800 [facility] [address] [place] [address] 03/10/2025 11:20 AM EDT Office Visit Pav CC Head, Neck & Respiratory 800 [facility], 2nd [place] [address] Elsa Razo, INSTRUCTIONAL RESOURCE TEACHER 800 [place] [phone] Scheduled Orders Name Type Priority Associated Diagnoses Orde r Schedule CBC and Differential Lab Routine Myelodysplasia (myelodysplastic syndrome) (CMS/HCC) Expected: 01/06/2025, Expires: 06/26/2026 documented as of this encounter Visit Diagnoses Diagnosis Myelodysplasia (myelodysplastic syndrome) ([facility]/HCC)- Primary Myelodysplastic syndrome, unspecified documented in this encounter Additional Health Concerns Assessment Noted Time PHQ-9 Depression Total Score: 0 09/11/19 25 9:15 AM EST A fall risk assessment has been complete d for the patient 12/22/2024 8:26 AM EDT A Body Mass Index follow-up plan has been documented for the patient 12/16/2024 12:23 PM EDT documented as of this encounter Care Teams Photographic Process Worker Relationship Specialty Start Date End Date Zhao Harris MD 1210 [facility] [address] [place] [address] PCP - General 12/03/20 documented as of this encounter
--- OUTSIDE RECORDS SUMMARY | 2025-01-27 08:11 | XMS_ITS ---
Author Organization [facility] Address [address] [place] [address] Care Team Providers Care Resident Service Coordinator Name Role Phone Zhao Harris MD Primary Care Provider [phone] Active Problems Problem Noted Date Diagnosed Date [...] PA Linked Problems Myelodysplasia (myelodysplas tic syndrome) ([facility]/HCC)Thrombocytopenia (CMS/HCC) Treatment Medications No medications scheduled. Past [...]
--- OUTSIDE RECORDS SUMMARY | 2025-01-27 08:12 | XMS_ITS | Referral Summary ---
Author Organization [employer] ([place], [place], [place], [place]) Address [address] [place] [address] Care Team Providers Care Transmission Technician Name Role Phone Unavailable Primary Care [...]
--- OUTSIDE RECORDS SUMMARY | 2025-01-27 08:12 | XMS_ITS | Encounter Summary ---
Author Organization [employer] ([place], [place], [place], [place]) Address [address] [place] [address] Care Team Providers Care Grill Chef Name Role Phone Unavailable Primary Care Provider Unavailabl e Encounter Details Date Type Department Care Team (Late st Contact Info) Description 07/10/2019 Transcribed Document [facility] [address] [place] [address] ProviderBrigida MD [address] [place] [address] Social History Tobacco Use Types [...] - Brigida ProviderMD - 07/10/2019 7:57 AM TAX MANAGER PUBLIC [facility] Main OR PreOp Summary Primary Physician: SURY SHARMA MD-ORT Finalized Date/Time: 07/21/19 08:13:07 Pt. Name: HUGO AGUILAR JR, D.O.B./Sex: 1955 Male Med Rec #: [id number] Physician: SURY SHARMA MD-ORT Financial #: [id number] Pt. Type: O Room/Bed: Admit/Disch: 07/10/19 05:55:00 - 07/10/19 10:00:00 Institution: [facility] PreOp Case Times Entry 1 In Preop 07/10/19 06:10:00 Ready for Holding n/a Room Patient Ready for 07/10/19 07:19:00 Surgery Patient Out of Preop 07/10/19 07:35:00 Patient Out of n/a Holding Room Last Modified By: REAL SEVILLA 07/21/19 08:13:06 SJDiane PreOp Case Times Audit 07/21/19 08:13:06 Lumber Sorter: FAY Modifier: CATLETDD <+> 1 Patient Out of Preop Finalized By: REAL SEVILLA Document Signatures Signed By: REAL SEVILLA 07/21/19 08:13 documented in this encounter Plan of Treatment Not on file documented as of this encounter Visit Diagnoses Not on filedocumented in this encounter
--- OUTSIDE RECORDS SUMMARY | 2025-01-27 08:12 | XMS_ITS | Encounter Summary ---
Author Organization [facility] Address [address] [place] [address] Care Team Providers Care Contract Designer Name Role Phone Zhao Harris MD Primary Care Provider [phone] Encounter Details Date Type Department Care Team ([facility] st Contact Info) Description 11/05/2024 Results Follow-Up Pav CC Head, Neck & Respiratory 800 [facility], 2nd [place] [address] Elsa Razo, DOSIMETRIST 800 [place] [address] Social History Tobacco Use Types Packs/Day Years [...] drink first t manav in the morning (EYE-CHICKEN VACCINATOR) to steady your nerves or to get [...] Appointment PAV A Interventional Radiology [address] [place] [address] 02/10/2025 8:30 AM EDT Clinical Support PAV Hematology/BMT and Cellular Therapy Program [address] [address] 02/10/2025 9:00 AM EDT Office Visit PAV Hematology/BMT and Cellular Therapy Program [address] [address] Elaina Boss, ARAM 800 [facility] [address] [place] [address] 02/10/2025 10:30 AM EDT Appointment [facility] Infusion Clinic 1 [address]44 [place] [address] 02/11/2025 2:00 PM EDT Appointment [facility] Infusion [facility] 1 [address] [place] [address] 02/12/2025 2:00 PM EDT Appointment [facility] Infusion [facility] 1 [address] [place] [address] 02/13/2025 2:00 PM EDT Appointment [facility] Infusion [facility] 1 [address] [place] [address] 02/14/2025 2:00 PM EDT Appointment [facility] Infusion [facility] 1 [address] [place] [address] 03/10/2025 8:30 AM EDT Clinical Support PAV CC Hematology/BMT and Cellular Therapy Program [address] [address] 03/10/2025 9:00 AM EDT Office Visit PAV CC Hematology/BMT and Cellular Therapy Program [address] [address] Isaura Wynn, DOSIMETRIST 800 [facility] [address] [place] [address] 03/10/2025 11:20 AM EDT Office Visit Pav CC Head, Neck & Respiratory 800 [facility], 2nd [place] [address] Elsa Razo, DOSIMETRIST 800 [place] [address] documented as of this encounter Visit Diagnoses [...] documented as of this encounter Care Teams Contract Designer Relationship Specialty Start Date End Date Zhao Harris MD [address] [place] [address] PCP - General 12/03/20 documented as of this encounter
--- OUTSIDE RECORDS SUMMARY | 2025-01-27 08:12 | XMS_ITS | Encounter Summary ---
Author Organization [facility] Address [address] [place] [address] Care Team Providers Care Litigation Coordinator Name Role Phone Zhao Harris MD Primary Care Provider [phone] Encounter Details Date Type Department Care Team ([facility] st Contact Info) Description 01/12/2025 Telephone [facility] CC Hematology/BMT and Cellular Therapy Program [address] [address] Virgen Vargas MD 800 [facility] 1st [place] [address] Social History Tobacco Use Types Packs/Day Years [...] drink first t manav in the morning (EYE-MINE CAPTAIN) to steady your nerves or to get [...] Wanting tospeak to Dr. Vargas Callback number: [phone] Personal number documented in this encounter Plan of Treatment Upcoming Encounters Date Type Department Care Team ([facility] st Contact Info) Description 02/02/2025 11:00 AM EDT Appointment P[facility] A Interventional Radiology [address] [place] [address] 02/10/2025 8:30 AM EDT Clinical Support [facility] CC Hematology/BMT and Cellular Therapy Program [address] [place] [address] 02/10/2025 9:00 AM EDT Office Visit [facility] Hematology/BMT and Cellular Therapy Program [address] [place] [address] Elaina Boss PA 800 [facility] [address] [place] [address] 02/10/2025 10:30 AM EDT Appointment [facility] Infusion [facility] 1 [address] [place] [address] 02/11/2025 2:00 PM EDT Appointment [facility] 1 [address] [place] [address] 02/12/2025 2:00 PM EDT Appointment [facility] 1 [address] [place] [address] 02/13/2025 2:00 PM EDT Appointment [facility] 1 [address] [place] [address] 02/14/2025 2:00 PM EDT Appointment [facility] 1 [address] [place] [address] 03/10/2025 8:30 AM EDT Clinical Support [facility] CC Hematology/BMT and Cellular Therapy Program [address] [address] 03/10/2025 9:00 AM EDT Office Visit [facility] CC Hematology/BMT and Cellular Therapy Program [address] [address] Isaura Wynn, FIBERLINE SUPERVISOR 800 [facility] [address] [place] [phone] 03/10/2025 11:20 AM EDT Office Visit Pav CC Head, Neck & Respiratory 800 [facility], 2nd [place] [address] Elsa Razo, FIBERLINE SUPERVISOR [address] [place] [phone] documented as of this encounter Visit Diagnoses [...] documented as of this encounter Care Teams Litigation Coordinator Relationship Specialty Start Date End Date Zhao Harris MD [address] [place] [address] PCP - General 12/03/20 documented as of this encounter
--- OUTSIDE RECORDS SUMMARY | 2025-01-27 08:12 | XMS_ITS | Encounter Summary ---
Author Organization [employer] ([place], [place], [place], [place]) Address [address] [place] [address] Care Team Providers Care Spanish Interpreter/Translator Name Role Phone Unavailable Primary Care Provider Unavailabl e Encounter Details Date Type Department Care Team (Late st Contact Info) Description 07/10/2019 Transcribed Document [facility] Family Medicine [address] [place] [address] ProviderBrigida MD [address] [place] [address] Social History Tobacco Use Types [...] - Brigida ProviderMD - 07/10/2019 7:57 AM COMMERCIAL LOAN COORDINATOR [facility] Main [place] IntraOp Summary Primary Physician: SURY SHARMA MD-ORT Finalized Date/Time: 07/10/19 08:31:14 Pt. Name: HUGO AGUILAR JR, D.O.B./Sex: 1955 Male Med Rec #: [id number] Physician: SURY SHARMA MD-ORT Financial #: [id number] Pt. Type: O Room/Bed: Admit/Disch: 07/10/19 05:55:00 - Institution: [facility] IntraOp Case Attendance Entry 1 Entry 2 Entry 3 Case Attendee SURY SHARMA, TRAVIS PUTNAM, ESTRELLA, Kenrick Guadalupe, COMMERCIAL LOAN COORDINATOR/FRUIT GRADING SUPERVISOR MEAGANORGenia SALES OPERATIONS DIRECTOR-ANS Role Performed Surgeon/Proceduralist, SALES OPERATIONS DIRECTOR/Nurse Automatic Bow Maker Machine Tender Cone Worker, First First Time In 07/10/19 07:38:00 07/10/19 07:38:00 07/10/19 07:38:00 Time Out 07/10/19 08:26:00 07/10/19 08:26:00 07/10/19 08:26:00 Procedure Knee Arthroscopy Knee Arthroscopy Knee Arthroscopy Other Attendee Superficial Wound Closed By: Last Modified By: Martha Goldberg RN Dobson, Melissa, RN Dobson, Melissa, RN 07/10/19 08:31:02 07/10/19 08:31:02 07/10/19 08:31:02 Entry 4 Entry 5 Case Attendee WILMER HECTOR Melissa, RN Role Performed Scrub, First Seafood Manager, First Time In 07/10/19 07:38:00 07/10/19 07:38:00 Time Out 07/10/19 08:26:00 07/10/19 08:26:00 Procedure Knee Arthroscopy Knee Arthroscopy Other Attendee Superficial Wound Closed By: Last Modified By: Martha Goldberg RN Dobson, Melissa, RN 07/10/19 08:31:02 07/10/19 08:31:02 [facility] IntraOp Case Attendance Audit 07/10/19 08:31:02 Account Development Associate: [id number] Modifier: [id number] 1 <+> Time Out 1 <*> Procedure Knee Arthroscopy 2 <+> Time Out 2 <*> Procedure Knee Arthroscopy 3 <+> Time Out 3 <*> Procedure Knee Arthroscopy 4 <+> Time Out 4 <*> Procedure Knee Arthroscopy 5 <+> Time Out 5 <*> Procedure Knee Arthroscopy 07/10/19 08:12:16 Account Development Associate: [id number] Modifier: [id number] <+> 1 Time In <+> 1 Procedure [...] [facility] IntraOp Case Times Audit 07/10/19 08:30:17 Account Development Associate: [id number] Modifier: [id number] <+> 1 Out Room Time <+> 1 [...] S[facility] IntraOp Counts Final Audit 07/10/19 08:29:56 Account Development Associate: [id number] Modifier: [id number] 1 <*> Procedure Knee Arthroscopy [facility] IntraOp Delays Entry 1 Delay Reason Other Duration 8 Minute(s) Last Modified By: Martha Goldberg RN 07/10/19 08:06:57 [facility] IntraOp Departure from OR Entry 1 Integumentary Assessment Integumentary WDL Assessment WDL Transfer/Handoff Transfer to PACU Phase I Handoff Method Bedside/Face to face Post-op Transport Stretcher/Gurney Via Patient Transport Martha Goldberg RN, Accompanied by TRAVIS PUTNAM, POLO COACH, SALES OPERATIONS DIRECTOR-ANS Last Modified By: Martha Goldberg RN 07/10/19 08:06:58 [facility] IntraOp Dressing and Packing Entry 1 Type Dressing Location RIGHT KNEE Wound Dressing Item 4x4's, Joseph, Kerlix/Maninder Applied By Kenrick Guadalupe, COMMERCIAL LOAN COORDINATOR/FRUIT GRADING SUPERVISOR Last Modified By: Martha Goldberg RN 07/10/19 [...] RN 07/10/19 08:07:26 [facility] IntraOp General Case Appraisal Technician 1 Case Information OR OR 05 SJE Case Level 1 Room Verified Yes Wound Class I - Clean Specialty SN Orthopedic Anesthesia Type General ASA Class 3 Diagnosis Preop Diagnosis RIGHT KNEE PAIN Postop Same As Preop Yes Postop Diagnosis RIGHT KNEE PAIN Last Modified By: Martha Goldberg RN 07/10/19 08:16:03 [facility] IntraOp General Case Data Audit 07/10/19 08:16:03 Account Development Associate: [id number] Modifier: [id number] <+> 1 ASA Class <+> 1 Anesthesia [...] S[facility] IntraOp Intraoperative Equipment Audit 07/10/19 08:15:09 Account Development Associate: [id number] Modifier: [id number] 1 <*> Photo Yes 1 <*> Video [...] 20ml vial Marcaine 0.5% 30ml vial - [id number] - [id number] Combo Med List Time Administered 07/10/19 07:57:00 07/10/19 07:57:00 Route of LOCAL LOCAL Administration Dose Dose 25 20 Unit of Measure ml ml Volume Administered By Kenrick Guadalupe, COMMERCIAL LOAN COORDINATOR/FRUIT GRADING SUPERVISOR Kenrick Guadalupe CST/FREDY Procedure Irrigation Irrigant Volume [...] Positioned By Martha Goldberg RN, TRAVIS PUTNAM, POLO COACH, SALES OPERATIONS DIRECTOR-ANS Position Verified Positioning Yes Verified by Anesthesia [...] Intra Op Sign Out Audit 07/10/19 08:30:31 Account Development Associate: [id number] Modifier: [id number] <+> 1 RN Sign Out Signature Date/Time [...] S[facility] IntraOp Surgical Procedures Audit 07/10/19 08:30:36 Account Development Associate: [id number] Modifier: [id number] <+> 1 Stop 07/10/19 08:16:57 Account Development Associate: [id number] Modifier: [id number] 1 <*> Procedure Knee Arthroscopy [facility] IntraOp Temp Regulation Devices Entry 1 Temp Regulation Temperature Warm blankets Regulation Device Temperature Upper body Regulation Site Temperature TRAVIS PUTNAM APRN, Regulation Device SALES OPERATIONS DIRECTOR-ANS Applied by Last Modified By: Martha Goldberg [...] S[facility] IntraOp Time Out Audit 07/10/19 08:31:00 Account Development Associate: [id number] Modifier: [id number] 1 <*> Beta Jaime Administered N/A 1 <*> Procedure to be Performed Knee Arthroscopy Case Comments <None> Finalized By: Martha Goldberg RN Document Signatures Signed By: Martha Goldberg RN 07/10/19 08:31 Electronically signed by [facility] Conversion Spike Machine Operator Cerner at 11/06/2022 5:47 PM CDT documented in this encounter Plan of Treatment Not on file documented as of this encounter Visit Diagnoses Not on filedocumented in this encounter
--- OUTSIDE RECORDS SUMMARY | 2025-01-27 08:12 | XMS_ITS | Encounter Summary ---
Author Organization [facility] Address [address] [place] [address] Care Team Providers Care Radio Installer Name Role Phone Zhao Harris MD Primary Care Provider [phone] Encounter Details Date Type Department Care Team [...] drink first t manav in the morning (EYE-FUND CONTROLLER) to steady your nerves or to get [...] Appointment [facility] A Interventional Radiology [address] [place] [address] 02/10/2025 8:30 AM EDT Clinical Support [facility] CC Hematology/BMT and Cellular Therapy Program [address] [place] [address] [place] [address] 02/10/2025 9:00 AM EDT Office Visit [facility] CC Hematology/BMT and Cellular Therapy Program [address] [place] [address] Elaina Boss, PA 800 [facility] [address] [place] [address] 02/10/2025 10:30 AM EDT Appointment [facility]fusion [facility] 1 [address] [place] [address] 02/11/2025 2:00 PM EDT Appointment [facility] 1 [address] [place] [address] 02/12/2025 2:00 PM EDT Appointment [facility] 1 [address] [place] [address] 02/13/2025 2:00 PM EDT Appointment [facility] 1 [address] [place] [address] 02/14/2025 2:00 PM EDT Appointment [facility] 1 [address] [place] [address] 03/10/2025 8:30 AM EDT Clinical Support [facility] CC Hematology/BMT and Cellular Therapy Program [address] [place] [address] [place] [address] 03/10/2025 9:00 AM EDT Office Visit [facility] CC Hematology/BMT and Cellular Therapy Program [address] [place] [address] [place] [phone] Isaura Wynn, SALES ADMINISTRATION SPECIALIST 800 [facility] [address] [place] [address] 03/10/2025 11:20 AM EDT Office Visit Pav CC Head, Neck & Respiratory 800 [facility], 2nd [place] [address] Elsa Razo, SALES ADMINISTRATION SPECIALIST [address] [place] [address] documented as of this encounter Visit Diagnoses [...] documented as of this encounter Care Teams Radio Installer Relationship Specialty Start Date End Date Zhao Harris MD 1210 [facility] [address] [place] [address] PCP - General 12/03/20 documented as of this encounter
--- OUTSIDE RECORDS SUMMARY | 2025-01-27 08:12 | XMS_ITS | Encounter Summary ---
Author Organization [employer] ([place], [place], [place], [place]) Address [address] [place] [address] Care Team Providers Care Bottom Pounder Cement Shoes Name Role Phone Unavailable Primary Care Provider Unavailabl e Encounter Details Date Type Department Care Team (Late st Contact Info) Description 07/10/2019 Transcribed Document [facility] Family Medicine [address] [place] [address] ProviderBrigida MD [address] [place] [address] Social History Tobacco Use Types [...] Brigida Vega MD - 07/10/2019 9:20 AM [place] [address] HUGO AGUILAR JR :1955 Visit Time:07/10/2019 What to do next Your Diagnosis Chondromalacia, right knee, Chondromalacia, right knee Instructions From Your Care Team Weight bearing as tolerated, use cane or crutches if needed. Keep dressing clean and dry for at least 2 days. Resume all home medications. Usual diet as tolerated. Fraser 10/325mg 1 tablet every 6 hours as needed for pain- next dose due @ 3:30pm today 07/10/19. Follow-Up Appointments Follow Up with SURY SHARMA MD-ORT When 07/21/2019 02:00 PM EST Where: [address] [facility] 2ND [place] [address]- Medications What How Much When Instructions Next [...] activities are safe for you. ??? Take wxcm-ney-mibnljy and prescription medicines only as told by [...] 12/28/2017 Document Revised: 03/07/2018 Document Reviewed: 12/28/2017 [employer] Interactive Patient Education ?? 2019 [employer] General Anesthesia, Adult, Care After This [...] activities are safe for you. ??? Take gohl-ctb-uhqkjbf and prescription medicines only as told by [...] 10/15/2001 Document Revised: 02/22/2018 Document Reviewed: 02/22/2018 [employer] Interactive Patient Education ?? 2019 [employer] Knee Arthroscopy, Care After Refer to [...] activities are safe for you. ??? Perform pxpsz-kd-tgiedl exercises only as directed by your health [...] 01/26/2006 Document Revised: 12/08/2016 Document Reviewed: 07/05/2015 [employer] Interactive Patient Education ?? 2018 [employer]. acetaminophen and hydrocodone (a SEET a MIN oh fen and laurie droe KOE done) Hycet, Lorcet, Fraser, Verdrocet, Vicodin, Xodol, Zamicet What is the [...] may report side effects to FDA at 9-187-JXG-2824. What other drugs will affect acetaminophen and [...] affect acetaminophen and hydrocodone, including prescription and rpct-tli-lsibnqm medicines, vitamins, and herbal products. Not all [...] to ensure that the information provided by [employer] ('[employer]') is accurate, up-to-date, and complete, but no guarantee is made to that effect. Drug information contained herein may be time sensitive. [employer] information has been compiled for use by healthcare practitioners and consumers in the [place] and therefore [employer] does not warrant that uses outside of the [place] are appropriate, unless specifically indicated otherwise. [employer] drug information does not endorse drugs, diagnose patients or recommend therapy. [employer] drug information is an informational resource designed [...] effective or appropriate for any given patient. [facility] does not assume any responsibility for any aspect of healthcare administered with the aid of information [facility] provides. The information contained herein is not intended to cover all possible uses, directions, precautions, warnings, drug interactions, allergic reactions, or adverse effects. If you have questions about the drugs you are taking, check with your doctor, nurse or pharmacist. Copyright 9536-9012 [employer] Version: 15.02. Revision Date: 05/27/2018. Emergency Awareness [...] Assistance with quitting is available by contacting 3-667-ZPDO-NOW. This is a free resource providing counseling, [...] was given the opportunity to ask questions. Patient/Arboriculture Instructor Name: Patient/Arboriculture Instructor Signature: Relationship to Patient: Clinician/Hospital Arboriculture Instructor Signature: Date: documented in this encounter Plan of Treatment Not on file documented as of this encounter Visit Diagnoses Not on filedocumented in this encounter
--- OUTSIDE RECORDS SUMMARY | 2025-01-27 08:12 | XMS_ITS | Encounter Summary ---
Author Organization [employer] ([place], [place], [place], [place]) Address [address] [place] [address] Care Team Providers Care Costumer Assistant Name Role Phone Unavailable Primary Care Provider Unavailabl e Encounter Details Date Type Department Care Team (Late st Contact Info) Description 07/10/2019 Transcribed Document [facility] [place] Family Medicine [address] [place] [address] ProviderBrigida MD [address] [place] [address] Social History Tobacco Use Types [...] - Brigida ProviderMD - 07/10/2019 7:57 AM [facility]UGBOAT MATE [facility] Main OR PostOp Summary Primary Physician: SURY SHARMA MD-ORT Finalized Date/Time: 07/10/19 10:03:33 Pt. Name: HUGO AGUILAR JR, D.O.B./Sex: 1955 Male Med Rec #: [id number] Physician: SURY SHARMA MD-ORT Financial #: [id number] Pt. Type: O Room/Bed: Admit/Disch: 07/10/19 05:55:00 - Institution[place] [facility] [place] PostOp Case Times Entry 1 In PACU II 07/10/19 09:10:00 Ready for PACU II 07/10/19 10:00:00 Discharge Discharge from PACU 07/10/19 10:00:00 II Last Modified By: Laquita Romero RN 07/10/19 10:03:30 [facility] Main OR PostOp Case Times Audit 07/10/19 10:03:30 Gaggerman: [id number] Modifier: [id number] <+> 1 Ready for PACU II Discharge <+> 1 Discharge from PACU II Finalized By: Laquita Romero RN Document Signatures Signed By: Laquita Romero RN 07/10/19 10:03 documented in this encounter Plan of Treatment Not on file documented as of this encounter Visit Diagnoses Not on filedocumented in this encounter
--- OUTSIDE RECORDS SUMMARY | 2025-01-27 08:12 | XMS_ITS | Encounter Summary ---
Author Organization [facility] Address [address] [place] [address] Care Team Providers Care Cell Stripper Name Role Phone Zhao Harris MD Primary Care Provider [phone] Encounter Details Date Type Department Care Team ([facility] st Contact Info) Description 01/20/2025 Telephone [facility] CC Hematology/BMT and Cellular Therapy Program [address] [address] Elaina Boss, ARAM 800 [facility] [address] [place] [address] Social History Tobacco Use Types Packs/Day Years [...] drink first t manav in the morning (EYE-VISCOSITY WORKER) to steady your nerves or to [...] Appointment PAV A Interventional Radiology [address] [place] [address] 02/10/2025 8:30 AM EDT Clinical Support P[facility] CC Hematology/BMT and Cellular Therapy Program [address] [address] 02/10/2025 9:00 AM EDT Office Visit PAV Hematology/BMT and Cellular Therapy Program [address] [address] Elaina Boss, ARAM 800 [facility] [address] [place] [phone] 02/10/2025 10:30 AM EDT Appointment [facility] Infusion [facility] 1 [address] [place] [address] 02/11/2025 2:00 PM EDT Appointment [facility] 1 [address] [place] [address] 02/12/2025 2:00 PM EDT Appointment [facility] 1 [address] [place] [address] 02/13/2025 2:00 PM EDT Appointment [facility] 1 [address] [place] [address] 02/14/2025 2:00 PM EDT Appointment [facility] 1 [address] [place] [address] 03/10/2025 8:30 AM EDT Clinical Support [facility] CC Hematology/BMT and Cellular Therapy Program [address] [address] 03/10/2025 9:00 AM EDT Office Visit [facility] CC Hematology/BMT and Cellular Therapy Program [address] [address] Isaura Wynn, WET POUR SUPERVISOR 800 [facility] [address] [place] [phone] 03/10/2025 11:20 AM EDT Office Visit Pav CC Head, Neck & Respiratory 800 [facility], 2nd [place] [phone] Elsa Razo, WET POUR SUPERVISOR [address] [place] [phone] documented as of this encounter Visit Diagnoses [...] as of this encounter Care Teams Cell Stripper Relationship Specialty Start Date End Date Zhao Harris MD [address] [phone] PCP - General 12/03/20 documented as of this encounter
--- OUTSIDE RECORDS SUMMARY | 2025-01-27 08:12 | XMS_ITS | Encounter Summary ---
Author Organization [facility] Address [address] [place] [address] Care Team Providers Care Digital Performance Analyst Name Role Phone Zhao Harris MD Primary Care Provider [phone] Encounter Details Date Type Department Care Team [...] drink first t manav in the morning (EYE-CHIEF DESIGN BRANCH) to steady your nerves or to get [...] Upcoming Encounters Date Type Department Care Team ([facility] Contact Info) Description 02/02/2025 11:00 AM EDT Appointment P[facility] A Interventional Radiology [address] [place] [address] 02/10/2025 8:30 AM EDT Clinical Support P[facility] CC Hematology/BMT and Cellular Therapy Program [address] [place] [address] [place] [address] 02/10/2025 9:00 AM EDT Office Visit [facility] CC Hematology/BMT and Cellular Therapy Program [address] [place] [address] Elaina Boss, PA 800 [facility] [address] [place] [address] 02/10/2025 10:30 AM EDT Appointment [facility]fusion [facility] 1 [address] [place] [address] 02/11/2025 2:00 PM EDT Appointment [facility] 1 [address] [place] [address] 02/12/2025 2:00 PM EDT Appointment [facility] 1 [address] [place] [address] 02/13/2025 2:00 PM EDT Appointment [facility] 1 [address] [place] [address] 02/14/2025 2:00 PM EDT Appointment [facility] 1 [address] [place] [address] 03/10/2025 8:30 AM EDT Clinical Support [facility] CC Hematology/BMT and Cellular Therapy Program [address] [place] [address] [place] [address] 03/10/2025 9:00 AM EDT Office Visit [facility] CC Hematology/BMT and Cellular Therapy Program [address] [place] [address] [place] [phone] Isaura Wynn, HOSPITALITY MANAGER [address] [facility] [address] [place] [address] 03/10/2025 11:20 AM EDT Office Visit Pav CC Head, Neck & Respiratory 800 [facility], 2nd [place] [address] Elsa Razo, HOSPITALITY MANAGER [address] [place] [phone] documented as of this encounter Visit Diagnoses [...] documented as of this encounter Care Teams Digital Performance Analyst Relationship Specialty Start Date End Date Zhao Harris MD 1210 [facility] [address] [place] [phone] PCP - General 12/03/20 documented as of this encounter
--- OUTSIDE RECORDS SUMMARY | 2025-01-27 08:12 | XMS_ITS | Encounter Summary ---
Author Organization [facility] Address [address] [place] [address] Care Team Providers Care Event Av Operator Name Role Phone Zhao Harris MD Primary Care Provider [phone] Encounter Details Date Type Department Care Team ([facility] st Contact Info) Description 12/16/2024 Orders Only [facility] CC Hematology/BMT and Cellular Therapy Program [address] [address] Christina Ramos MD 800 [facility] [address]st [place] [address] Myelodysplasia (myelodysplastic syndrome) (CMS/HCC) (Primary Dx) Social [...] first t manav in the morning (EYE-PUBLIC SPACE ATTENDANT) to steady your nerves or to [...] Appointment P[facility] A Interventional Radiology [address] [place] [address] 02/10/2025 8:30 AM EDT Clinical Support [facility] Hematology/BMT and Cellular Therapy Program [address] [address] 02/10/2025 9:00 AM EDT Office Visit [facility] Hematology/BMT and Cellular Therapy Program [address] [address] Elaina Boss, PA 800 [facility] [address] [place] [address] 02/10/2025 10:30 AM EDT Appointment [facility] 1 [address] [place] [address] 02/11/2025 2:00 PM EDT Appointment [facility] 1 [address] [place] [address] 02/12/2025 2:00 PM EDT Appointment [facility] 1 [address] [place] [address] 02/13/2025 2:00 PM EDT Appointment [facility] 1 [address] [place] [address] 02/14/2025 2:00 PM EDT Appointment [facility] 1 [address] [place] [address] 03/10/2025 8:30 AM EDT Clinical Support [facility] CC Hematology/BMT and Cellular Therapy Program 750 [facility] [place] [address] 03/10/2025 9:00 AM EDT Office Visit [facility] CC Hematology/BMT and Cellular Therapy Program 750 [facility] [place] [address] Isaura Wynn, REINFORCING STEEL MACHINE OPERATOR 800 [facility] [address] [place] [address] 03/10/2025 11:20 AM EDT Office Visit Pav CC Head, Neck & Respiratory 800 [facility], 2nd [place] [address] Elsa Razo, REINFORCING STEEL MACHINE OPERATOR [address] [place] [address] documented as of this encounter Results * (ABNORMAL) Comprehensive metabolic panel (01/06/2025 8:49 AM EDT) Glucose, Plasma 100(H) 74 - 99 mg/dL 01/06/2025 9:34 AM EDT [facility] BUN, Plasma 8 8 - 23 mg/dL 01/06/2025 9:34 AM EDT [facility] Creatinine, Plasma 0.76 0.70 - 1.20 mg/dL 01/06/2025 9:34 AM EDT [facility] BUN/Creatinine Ratio 11 01/06/2025 9:34 AM EDT [facility] Sodium, Plasma 138 136 - 145 mmol/L 01/06/2025 9:34 AM EDT [facility] Potassium, Plasma 4.3 3.6 - 4.9 mmol/L 01/06/2025 9:34 AM EDT [facility] Chloride, Plasma 109(H) 97 - 107 mmol/L 01/06/2025 9:34 AM EDT [facility] CO2, Plasma 21(L) 22 - 29 mmol/L 01/06/2025 9:34 AM EDT [facility] Anion Gap 8 6 - 16 mmol/L 01/06/2025 9:34 AM EDT [facility] Total Calcium, Plasma 8.8(L) 8.9 - 10.2 mg/dL 01/06/2025 9:34 AM EDT [facility] Total Protein 6.6 6.3 - 7.9 g/dL 01/06/2025 9:34 AM EDT [facility] Albumin, Plasma 3.9 3.5 - 5.2 g/dL 01/06/2025 9:34 AM EDT [facility] AST, Plasma 25 10 - 50 U/L 01/06/2025 9:34 AM EDT [facility] ALT, Plasma 28 10 - 50 U/L 01/06/2025 9:34 AM EDT [facility] Alkaline Phosphatase, Plasma 83 40 - 115 U/L 01/06/2025 9:34 AM EDT [facility] Total Bilirubin, Plasma 0.5 0.2 - 1.1 mg/dL 01/06/2025 9:34 AM EDT [facility] eGFRcr 97.3 mL/min/1.7 3m*2 01/06/2025 9:34 AM EDT [facility] Comment:Reported eGFRcr in m L/min/1.73m2 is based the CKD-EPI 2020 equation that does not use a race coefficient. Blood Venous blood specimen / Unknown Venipuncture / Unknown 01/06/2025 8:49 AM EDT 01/06/2025 9:01 AM EDT us Christina Ramos MD LAB BLOOD ORDERABLES Final Resul t [facility] [address] [place] [address] * (ABNORMAL) CBC and differential (01/06/2025 8:49 AM EDT) WBC Count 0.59(LL) 3.70 - 10.30 10*3/uL LAB HEMATOLOGY METHOD 01/06/2025 11:36 AM EDT [facility] RBC Count 2.95(L) 4.60 - 6.10 10*6/uL LAB HEMATOLOGY METHOD 01/06/2025 11:36 AM EDT [facility] HGB 8.8(L) 13.7 - 17.5 g/dL LAB HEMATOLOGY METHOD 01/06/2025 11:36 AM EDT [facility] HCT 25.3(L) 40.0 - 51.0 % LAB HEMATOLOGY METHOD 01/06/2025 11:36 AM EDT [facility] Platelet Count 75(L) 155 - 369 10*3/uL LAB HEMATOLOGY METHOD 01/06/2025 11:36 AM EDT [facility] MCV 86 79 - 98 fL LAB HEMATOLOGY METHOD 01/06/2025 11:36 AM EDT [facility] MCH 29.8 26.0 - 32.0 pg LAB HEMATOLOGY METHOD 01/06/2025 11:36 AM EDT [facility] MCHC 34.8 30.7 - 35.5 g/dL LAB HEMATOLOGY METHOD 01/06/2025 11:36 AM EDT [facility] RDW 14.6(H) 11.5 - 14.5 % LAB HEMATOLOGY METHOD 01/06/2025 11:36 AM EDT [facility] MPV 10.7 8.8 - 12.5 fL LAB HEMATOLOGY METHOD 01/06/2025 11:36 AM EDT [facility] nRBC 3.4(H) <=0.0 per 100 WBCs LAB HEMATOLOGY METHOD 01/06/2025 11:36 AM EDT [facility] Differential Type Automated LAB HEMATOLOGY METHOD 01/06/2025 11:36 AM EDT [facility] Neutrophils % 5 % LAB HEMATOLOGY METHOD 01/06/2025 11:36 AM EDT [facility] Lymphocytes % 88 % LAB HEMATOLOGY METHOD 01/06/2025 11:36 AM EDT [facility] Monocytes % 7 % LAB HEMATOLOGY METHOD 01/06/2025 11:36 AM EDT [facility] Eosinophils % 0 % LAB HEMATOLOGY METHOD 01/06/2025 11:36 AM EDT [facility] Basophils % 0 % LAB HEMATOLOGY METHOD 01/06/2025 11:36 AM EDT [facility] Immature Granulocytes % 0 % LAB HEMATOLOGY METHOD 01/06/2025 11:36 AM EDT [facility] Neutrophils Absolute 0.03(LL) 1.60 - 6.10 10*3/uL LAB HEMATOLOGY METHOD 01/06/2025 11:36 AM EDT [facility] Lymphocytes Absolute 0.52(L) 1.20 - 3.90 10*3/uL LAB HEMATOLOGY METHOD 01/06/2025 11:36 AM EDT [facility] Monocytes Absolute 0.04(L) 0.30 - 0.90 10*3/uL LAB HEMATOLOGY METHOD 01/06/2025 11:36 AM EDT [facility] Eosinophils Absolute 0.00 0.00 - 0.50 10*3/uL LAB HEMATOLOGY METHOD 01/06/2025 11:36 AM EDT [facility] Basophils Absolute 0.00 0.00 - 0.10 10*3/uL LAB HEMATOLOGY METHOD 01/06/2025 11:36 AM EDT [facility] Immature Granulocytes Absolute 0.00 0.00 - 0.06 10*3/uL LAB HEMATOLOGY METHOD 01/06/2025 11:36 AM EDT [facility] Blood Venous blood specimen / Unknown Venipuncture / Unknown 01/06/2025 8:49 AM EDT 01/06/2025 9:01 AM EDT [facility] - 01/06/2025 11:36 AM EDT Therapeutic decision making should be based on absolute values, rather than percentages. us Christina Ramos MD LAB BLOOD ORDERABLES Final Resul t [facility] [address] [place] [address] * (ABNORMAL) CBC and differential (12/20/2024 9:00 AM EDT) WBC Count 0.59(LL) 3.70 - 10.30 10*3/uL LAB HEMATOLOGY METHOD 12/20/2024 10:25 AM EDT [facility] RBC Count 2.46(L) 4.60 - 6.10 10*6/uL LAB HEMATOLOGY METHOD 12/20/2024 10:25 AM EDT [facility] HGB 7.8(L) 13.7 - 17.5 g/dL LAB HEMATOLOGY METHOD 12/20/2024 10:25 AM EDT [facility] HCT 22.0(L) 40.0 - 51.0 % LAB HEMATOLOGY METHOD 12/20/2024 10:25 AM EDT [facility] Platelet Count 22(L) 155 - 369 10*3/uL LAB HEMATOLOGY METHOD 12/20/2024 10:25 AM EDT [facility] MCV 89 79 - 98 fL LAB HEMATOLOGY METHOD 12/20/2024 10:25 AM EDT [facility] MCH 31.7 26.0 - 32.0 pg LAB HEMATOLOGY METHOD 12/20/2024 10:25 AM EDT [facility] MCHC 35.5 30.7 - 35.5 g/dL LAB HEMATOLOGY METHOD 12/20/2024 10:25 AM EDT [facility] RDW 16.0(H) 11.5 - 14.5 % LAB HEMATOLOGY METHOD 12/20/2024 10:25 AM EDT [facility] MPV 11.3 8.8 - 12.5 fL LAB HEMATOLOGY METHOD 12/20/2024 10:25 AM EDT [facility] nRBC 0.0 <=0.0 per 100 WBCs LAB HEMATOLOGY METHOD 12/20/2024 10:25 AM EDT [facility] Differential Type Automated LAB HEMATOLOGY METHOD 12/20/2024 10:25 AM EDT [facility] Neutrophils % 5 % LAB HEMATOLOGY METHOD 12/20/2024 10:25 AM EDT [facility] Lymphocytes % 92 % LAB HEMATOLOGY METHOD 12/20/2024 10:25 AM EDT [facility] Monocytes % 3 % LAB HEMATOLOGY METHOD 12/20/2024 10:25 AM EDT [facility] Eosinophils % 0 % LAB HEMATOLOGY METHOD 12/20/2024 10:25 AM EDT [facility] Basophils % 0 % LAB HEMATOLOGY METHOD 12/20/2024 10:25 AM EDT [facility] Immature Granulocytes % 0 % LAB HEMATOLOGY METHOD 12/20/2024 10:25 AM EDT [facility] Neutrophils Absolute 0.03(LL) 1.60 - 6.10 10*3/uL LAB HEMATOLOGY METHOD 12/20/2024 10:25 AM EDT [facility] Lymphocytes Absolute 0.54(L) 1.20 - 3.90 10*3/uL LAB HEMATOLOGY METHOD 12/20/2024 10:25 AM EDT [facility] Monocytes Absolute 0.02(L) 0.30 - 0.90 10*3/uL LAB HEMATOLOGY METHOD 12/20/2024 10:25 AM EDT [facility] Eosinophils Absolute 0.00 0.00 - 0.50 10*3/uL LAB HEMATOLOGY METHOD 12/20/2024 10:25 AM EDT [facility] Basophils Absolute 0.00 0.00 - 0.10 10*3/uL LAB HEMATOLOGY METHOD 12/20/2024 10:25 AM EDT [facility] Immature Granulocytes Absolute 0.00 0.00 - 0.06 10*3/uL LAB HEMATOLOGY METHOD 12/20/2024 10:25 AM EDT [facility] Blood Blood sample taken from central line / Unknown (Central Line) Existing Catheter / Unknown 12/20/2024 9:00 AM EDT 12/20/2024 9:13 AM EDT Narrative [facility] - 12/20/2024 10:25 AM EDT Therapeutic decision making should be based on absolute values, rather than percentages. us Christina Ramos MD LAB BLOOD ORDERABLES Final Resul t [facility] [address] [place] [address] * (ABNORMAL) CBC and differential (12/18/2024 9:14 [...] AM EDT 12/18/2024 9:20 AM EDT Narrative [facility] - 12/18/2024 10:49 AM EDT Therapeutic decision making should be based on absolute values, rather than percentages. us Christina Ramos MD LAB BLOOD ORDERABLES Final Resul t [facility] [address] [place] [address] documented in this encounter Visit Diagnoses Diagnosis [...] documented as of this encounter Care Teams Event Av Operator Relationship Specialty Start Date End Date Zhao Harris MD [address] [place] [address] PCP - General 12/03/20 documented as of this encounter
--- OUTSIDE RECORDS SUMMARY | 2025-01-27 08:12 | XMS_ITS | Encounter Summary ---
Author Organization [employer] ([place], [place], [place], [place]) Address [address] [place] [address] Care Team Providers Care Vitamin Manager Name Role Phone Unavailable Primary Care Provider Unavailabl e Encounter Details Date Type Department Care Team (Late st Contact Info) Description 07/10/2019 Transcribed Document [facility] [place] [address] [place] [address] ProviderBrigida MD [address] [place] [address] Social History Tobacco Use Types [...] Brigida Vega MD - 07/10/2019 9:18 AM BOAT ENGINES INSTALLER Patient Education Materials Follows: Local Anesthesia, Care [...] activities are safe for you. ??? Take [id number] and prescription medicines only as told by [...] 12/28/2017 Document Revised: 03/07/2018 Document Reviewed: 12/28/2017 [employer] Interactive Patient Education ? 2019 [employer] General Anesthesia, Adult, Care After This [...] activities are safe for you. ??? Take qyjm-aca-[id number] and prescription medicines only as told by [...] 10/15/2001 Document Revised: 02/22/2018 Document Reviewed: 02/22/2018 [employer] Interactive Patient Education ? 2019 [employer] Knee Arthroscopy, Care After Refer to [...] activities are safe for you. ??? Perform [id number]-[id number] exercises only as directed by your health [...] 01/26/2006 Document Revised: 12/08/2016 Document Reviewed: 07/05/2015 [employer] Interactive Patient Education ? 2018 [employer] documented in this encounter Plan of Treatment Not on file documented as of this encounter Visit Diagnoses Not on filedocumented in this encounter
--- OUTSIDE RECORDS SUMMARY | 2025-01-27 08:12 | XMS_ITS | Encounter Summary ---
Author Organization [employer] ([place], [place] Address [address] [place] [address] Care Team Providers Care Laboratory Technical Specialist Name Role Phone Unavailable Primary Care Provider Unavailabl e Encounter Details Date Type Department Care Team (Late st Contact Info) Description 07/10/2019 Transcribed Document [facility] [place] [address] [place] [address] ProviderBrigida MD [address] [place] [address] Social History Tobacco Use Types [...] - Historical ProviderMD - 07/10/2019 9:45 AM RECYCLE COORDINATOR Event Note Entered On: 07/10/2019 11:04 EST Performed On: 07/10/2019 9:45 EST by Laquita Romero RN Event Note Event Date/Time : 07/10/2019 9:45 EST Event Location : Other: post-op Description of Event : Pt informed that next dose of [place] pain medication due @ 3:45pm today instead of 3:30pm. Laquita Romero RN - 07/10/2019 11:02 EST documented in this encounter Plan of Treatment Not on file documented as of this encounter Visit Diagnoses Not on filedocumented in this encounter
--- OUTSIDE RECORDS SUMMARY | 2025-01-27 08:12 | XMS_ITS | Encounter Summary ---
Author Organization [employer] ([place], [place], [place], [place]) Address [address] [place] [address] Care Team Providers Care Gum Puller Name Role Phone Unavailable Primary Care Provider Unavailabl e Encounter Details Date Type Department Care Team (Late st Contact Info) Description 07/10/2019 Transcribed Document [facility] [place] [address] [place] [address] ProviderBrigida MD [address] [place] [address] Social History Tobacco Use Types [...] Brigida Vega MD - 07/10/2019 8:16 AM USED CAR SALES SUPERVISOR Patient: HUGO AGUILAR JR Age: 63 years [...]
--- OUTSIDE RECORDS SUMMARY | 2025-01-27 08:12 | XMS_ITS | Clinical Summary ---
Author Organization [employer] ([place], [place], [place], [place]) Address [address] [place] [address] Care Team Providers Care Project Accountant Name Role Phone Unavailable Primary Care Provider [...]
--- OUTSIDE RECORDS SUMMARY | 2025-01-27 08:12 | XMS_ITS | Encounter Summary ---
Author Organization [facility] Address [address] [place] [address] Care Team Providers Care Music Video Producer Name Role Phone Zhao Harris MD Primary Care Provider [phone] Reason for Visit * Reason Comments Med Refill Encounter Details Date Type Department Care Team (Late st Contact Info) Description 06/19/2023 Refill [facility] 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, unspecified vessel or [...] [facility] A Interventional Radiology [address] [place] [address] 02/10/2025 8:30 AM EDT Clinical Support [facility] CC Hematology/BMT and Cellular Therapy Program [address] [place] [address] 02/10/2025 9:00 AM EDT Office Visit [facility] Hematology/BMT and Cellular Therapy Program [address] [place] [address] Elaina Boss, PA 800 [facility] [address] [place] [address] 02/10/2025 10:30 AM EDT Appointment [facility] 1 [address] [place] [address] 02/11/2025 2:00 PM EDT Appointment [facility] 1 [address] [place] [address] 02/12/2025 2:00 PM EDT Appointment [facility] 1 [address] [place] [address] 02/13/2025 2:00 PM EDT Appointment [facility] 1 [address] [place] [address] 02/14/2025 2:00 PM EDT Appointment [facility] 1 [address] [place] [address] 03/10/2025 8:30 AM EDT Clinical Support [facility] Hematology/BMT and Cellular Therapy Program [address] [place] [address] 03/10/2025 9:00 AM EDT Office Visit [facility] Hematology/BMT and Cellular Therapy Program [address] [place] [address] Isaura Wynn, ESTRELLA 800 [facility] [address] [place] [phone] 03/10/2025 11:20 AM EDT Office Visit Pav Head, Neck & Respiratory 800 [facility], 2nd [place] [address] Elsa Razo, PROJECT MANAGER PROCESS DEVELOPMENT [address] [place] [address] documented as of this encounter Visit Diagnoses Diagnosis Hypertension, unspecified type 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
--- OUTSIDE RECORDS SUMMARY | 2025-01-27 08:12 | XMS_ITS | Encounter Summary ---
Author Organization [facility] Address [address] [place] [address] Care Team Providers Care Artificial Breeding Technician Name Role Phone Zhao Harris MD Primary Care Provider [phone] Encounter Details Date Type Department Care Team [...] drink first t manav in the morning (EYE-RAMP AGENT) to steady your nerves or to [...] Upcoming Encounters Date Type Department Care Team ([facility] Contact Info) Description 02/02/2025 11:00 AM EDT Appointment [facility] A Interventional Radiology [address] [place] [address] 02/10/2025 8:30 AM EDT Clinical Support [facility] CC Hematology/BMT and Cellular Therapy Program [address] [place] [address] [place] [address] 02/10/2025 9:00 AM EDT Office Visit [facility] CC Hematology/BMT and Cellular Therapy Program [address] [place] [address] Elaina Boss, PA 800 [facility] [address] [place] [address] 02/10/2025 10:30 AM EDT Appointment [facility] 1 [address] [place] [address] 02/11/2025 2:00 PM EDT Appointment [facility] 1 [address] [place] [address] 02/12/2025 2:00 PM EDT Appointment [facility] 1 [address] [place] [address] 02/13/2025 2:00 PM EDT Appointment [facility] 1 [address] [place] [address] 02/14/2025 2:00 PM EDT Appointment [facility] 1 [address] [place] [address] 03/10/2025 8:30 AM EDT Clinical Support [facility] Hematology/BMT and Cellular Therapy Program [address] [place] [address] [place] [address] 03/10/2025 9:00 AM EDT Office Visit [facility] CC Hematology/BMT and Cellular Therapy Program [address] [place] [address] [place] [phone] Isaura Wynn, COUNTER INTELLIGENCE 800 [facility] [address] [place] [address] 03/10/2025 11:20 AM EDT Office Visit Pav CC Head, Neck & Respiratory 800 [facility], 2nd [place] [address] Elsa Razo, COUNTER INTELLIGENCE [address] [place] [phone] documented as of this encounter Visit Diagnoses [...] documented as of this encounter Care Teams Artificial Breeding Technician Relationship Specialty Start Date End Date Zhao Harris MD [address] [facility] [address] [place] [address] PCP - General 12/03/20 documented as of this encounter
--- OUTSIDE RECORDS SUMMARY | 2025-01-27 08:12 | XMS_ITS | Encounter Summary ---
Author Organization [employer] ([place], [place], [place], [place]) Address [address] [place] [address] Care Team Providers Care Application Integrator Name Role Phone Unavailable Primary Care Provider Unavailabl e Encounter Details Date Type Department Care Team (Late st Contact Info) Description 07/10/2019 Transcribed Document [facility] [place] [address] [place] [address] ProviderBrigida MD [address] [place] [address] Social History Tobacco Use Types [...] Brigida Vega MD - 07/10/2019 7:04 AM BRONC BUSTER Patient: HUGO AGUILAR JR Age: 63 years Sex: Male : 1955 Associated Diagnoses: None Author: DWAYNE SHARMA MD-ORT HISTORY AND PHYSICAL DATE: Patient: Hguo Aguilar Date of : 1955 Patient Number: [id number] History of Present Illness Hugo is here [...] Center. No further questions. Dwayne Burris???Andrea JAMES Electronically signed by Katlin Maldonaod Conversion Performing Arts Road Manager Eulalio at 11/06/2022 6:14 PM CDT documented in this encounter Plan of Treatment Not on file documented as of this encounter Visit Diagnoses Not on filedocumented in this encounter
--- OUTSIDE RECORDS SUMMARY | 2025-01-27 08:12 | XMS_ITS | Encounter Summary ---
Author Organization [employer] ([place], [place], [place]) Address [address] [place] [address] Care Team Providers Care Road Passenger Firer Name Role Phone Unavailable Primary Care Provider Unavailabl e Encounter Details Date Type Department Care Team (Late st Contact Info) Description 07/10/2019 Transcribed Document [facility] [place] Family Medicine [address] [place] [address] ProviderBrigida MD [address] [place] [address] Social History Tobacco Use Types [...] - Brigida ProviderMD - 07/10/2019 7:57 AM MARINE ENGINE MECHANIC [facility] OR PACU Summary Primary Physician: SURY SHARMA MD-ORT Finalized Date/Time: 07/10/19 09:18:01 Pt. Name: HUGO AGUILAR JR, D.O.B./Sex: 1955 Male Med Rec #: [id number] Physician: SURY SHARMA MD-ORT Financial #: [id number] Pt. Type: O Room/Bed: Admit/Disch: 07/10/19 05:55:00 - Institution: [facility] PACU Case Times Entry 1 In PACU I 07/10/19 08:26:00 Ready for PACU 07/10/19 09:00:00 Discharge Discharge from PACU 07/10/19 09:00:00 I Last Modified By: Mariah Guerra RN 07/10/19 09:17:59 [facility] OR PACU Case Times Audit 07/10/19 09:17:59 Warehouse Incentive Selector: TERESA Modifier: CARRIEC 1 <*> Ready for PACU Discharge 07/10/19 08:56:00 1 <*> Discharge from PACU I 07/10/19 08:56:00 07/10/19 08:49:40 Warehouse Incentive Selector: TERESA Modifier: CARRIEC <+> 1 Discharge from PACU I Finalized By: Mariah Guerra RN Document Signatures Signed By: Mariah Guerra RN 07/10/19 09:18 Electronically signed by Joel [facility] Conversion Forestry Technical Officer Cerner at 11/06/2022 6:04 PM CDT documented in this encounter Plan of Treatment Not on file documented as of this encounter Visit Diagnoses Not on filedocumented in this encounter
--- OUTSIDE RECORDS SUMMARY | 2025-01-27 08:12 | XMS_ITS | Encounter Summary ---
Author Organization [facility] Address [address] [place] [address] Care Team Providers Care Truck Jumper Name Role Phone Zhao Harris MD Primary Care Provider [phone] Encounter Details Date Type Department Care Team ([facility] st Contact Info) Description 12/12/2024 Orders Only [facility] CC Hematology/BMT and Cellular Therapy Program [address] [place] [address] [place] [address] Gricel Goznalez RN [facility] HEMATOLOGY PROGRAM CLINIC Social [...] drink first t manav in the morning (EYE-BENCH CARPENTER) to steady your nerves or to [...] Appointment P[facility] A Interventional Radiology [address] [place] [address] 02/10/2025 8:30 AM EDT Clinical Support [facility] Hematology/BMT and Cellular Therapy Program [address] [address] 02/10/2025 9:00 AM EDT Office Visit [facility] Hematology/BMT and Cellular Therapy Program [address] [address] Elaina Boss, ARAM 800 [facility] [address] [place] [address] 02/10/2025 10:30 AM EDT Appointment [facility] 1 [address] [place] [address] 02/11/2025 2:00 PM EDT Appointment [facility] 1 [address] [place] [address] 02/12/2025 2:00 PM EDT Appointment [facility] 1 [address] [place] [address] 02/13/2025 2:00 PM EDT Appointment [facility] 1 [address] [place] [address] 02/14/2025 2:00 PM EDT Appointment [facility] 1 [address] [place] [address] 03/10/2025 8:30 AM EDT Clinical Support [facility] Hematology/BMT and Cellular Therapy Program 750 [facility] [place] [address] 03/10/2025 9:00 AM EDT Office Visit [facility] CC Hematology/BMT and Cellular Therapy Program 750 [facility], [address] [place] [phone] Isaura Wynn, BREAKDOWN PERSON 800 [facility] [address] [place] [address] 03/10/2025 11:20 AM EDT Office Visit Pav CC Head, Neck & Respiratory 800 [facility], 2nd [place] [phone] Elsa Razo, BREAKDOWN PERSON 800 [place] [address] documented as of this encounter Visit Diagnoses [...] documented as of this encounter Care Teams Truck Jumper Relationship Specialty Start Date End Date Zhao Harris MD [address] [place] [address] PCP - General 12/03/20 documented as of this encounter
--- OUTSIDE RECORDS SUMMARY | 2025-01-27 08:12 | XMS_ITS | Encounter Summary ---
Author Organization [facility] Address [address] [place] [address] Care Team Providers Care Desktop Publishing Specialist Name Role Phone Zhao Harris MD Primary Care Provider [phone] Encounter Details Date Type Department Care Team [...] drink first t manav in the morning (EYE-TICK ERADICATOR) to steady your nerves or to get [...] Upcoming Encounters Date Type Department Care Team ([facility] Contact Info) Description 02/02/2025 11:00 AM EDT Appointment P[facility] A Interventional Radiology [address] [place] [address] 02/10/2025 8:30 AM EDT Clinical Support [facility] CC Hematology/BMT and Cellular Therapy Program [address] [place] [address] [place] [address] 02/10/2025 9:00 AM EDT Office Visit [facility] CC Hematology/BMT and Cellular Therapy Program [address] [place] [address] Elaina Boss, PA 800 [facility] [address] [place] [address] 02/10/2025 10:30 AM EDT Appointment [facility] 1 [address] [place] [address] 02/11/2025 2:00 PM EDT Appointment [facility] 1 [address] [place] [address] 02/12/2025 2:00 PM EDT Appointment [facility] 1 [address] [place] [address] 02/13/2025 2:00 PM EDT Appointment [facility] 1 [address] [place] [address] 02/14/2025 2:00 PM EDT Appointment [facility] 1 4 [place] [address] 03/10/2025 8:30 AM EDT Clinical Support [facility] CC Hematology/BMT and Cellular Therapy Program [address] [place] [address] [place] [address] 03/10/2025 9:00 AM EDT Office Visit [facility] CC Hematology/BMT and Cellular Therapy Program [address] [place] [address] [place] [phone] Isaura Wynn, LARGE ANIMAL VETERINARIAN 800 [facility] [address] [place] [address] 03/10/2025 11:20 AM EDT Office Visit Pav CC Head, Neck & Respiratory 800 [facility], 2nd [place] [address] Elsa Razo, LARGE ANIMAL VETERINARIAN [address] [place] [phone] documented as of this encounter Visit Diagnoses [...] documented as of this encounter Care Teams Desktop Publishing Specialist Relationship Specialty Start Date End Date Zhao Harris MD 1210 [facility] [address] [place] [phone] PCP - General 12/03/20 documented as of this encounter
--- OUTSIDE RECORDS SUMMARY | 2025-01-27 08:12 | XMS_ITS | Encounter Summary ---
Author Organization [employer] ([place], [place], [place]) Address [address] [place] [address] Care Team Providers Care High School Business Teacher Name Role Phone Unavailable Primary Care Provider Unavailabl e Encounter Details Date Type Department Care Team (Late st Contact Info) Description 07/10/2019 Transcribed Document [facility] [place] Family Medicine [address] [place] [address] ProviderBrigida MD [address] [place] [address] Social History Tobacco Use Types [...] - Historical ProviderMD - 07/10/2019 7:17 AM MEDICAL REGISTRAR Pre Procedure Adult Entered On: 07/10/2019 7:21 EST Performed On: 07/10/2019 7:17 EST by RONNY BLISS RN Height and Weight, Clinical Dosing Height Source : Stated Height Entry Format : Cowley Height, Feet : 5 ft(Converted to: 152 cm, 60 Inch) Height, Inches : 7 Inch(Converted to: 0 ft 7 Inch, 17.78 cm) Clinical Height : 170.18 cm Weight Source : Standing scale Weight Entry Format : Cowley Clinical Dosing Weight : 86.36 kg Weight, Pounds : 190 lb Body Surface Area (BSA) : 1.98 m2 Body Mass Index : 29.8 kg/m2 (HI) Crawford Body Weight : 65 kg RONNY BLISS [...] Days : No Contact With Traveler to [facility] : No Tuberculosis Symptoms : [...] RONNY BLISS RN - 07/10/2019 7:17 EST [place] Suicide Severity Rating Scale (C-SSRS) CSSRS Past [...] Arrival on Unit : Ambulatory Support Person/Patient Numberer And Wirer : Yes Support Person/Pt Rep Name : Faviola Support Person/Pt Rep Contact Information : [phone] Want Family/Rep/Phys Notified of Admit : No Emergency Contact #1 : Faviola Brown Emergency Contact #1 Emergency Contact #1 Relationship : Emergency Contact #2 : . Emergency Contact #2 Phone Number : . Emergency Contact #2 Relationship : . Information Obtained From : Patient Primary Language : Salvadorean Preferred Communication Mode : Verbal Communication Barrier [...] Scale Risk Level : 25-45 Medium Risk [place] Fall Interventions : Adequate lighting, Bed in [...]
--- OUTSIDE RECORDS SUMMARY | 2025-01-27 08:12 | XMS_ITS | Encounter Summary ---
Author Organization [facility] Address [address] [place] [address] Care Team Providers Care Dipper And Baker Name Role Phone Zhao Harris MD Primary Care Provider [phone] Encounter Details Date Type Department Care Team [...] drink first t manav in the morning (EYE-PROCESSING TECHNICIAN) to steady your nerves or to [...] Upcoming Encounters Date Type Department Care Team ([facility] Contact Info) Description 02/02/2025 11:00 AM EDT Appointment P[facility] A Interventional Radiology [address] [place] [address] 02/10/2025 8:30 AM EDT Clinical Support [facility] CC Hematology/BMT and Cellular Therapy Program [address] [place] [address] [place] [address] 02/10/2025 9:00 AM EDT Office Visit [facility] CC Hematology/BMT and Cellular Therapy Program [address] [place] [phone] Elaina Boss, PA 800 [facility] [address] [place] [address] 02/10/2025 10:30 AM EDT Appointment [facility]fusion [facility] 1 [address] [place] [address] 02/11/2025 2:00 PM EDT Appointment [facility] 1 [address] [place] [address] 02/12/2025 2:00 PM EDT Appointment [facility] 1 [address] [place] [address] 02/13/2025 2:00 PM EDT Appointment [facility] 1 [address] [place] [address] 02/14/2025 2:00 PM EDT Appointment [facility] 1 4 [place] [address] 03/10/2025 8:30 AM EDT Clinical Support [facility] CC Hematology/BMT and Cellular Therapy Program [address] [place] [address] [place] [address] 03/10/2025 9:00 AM EDT Office Visit [facility] CC Hematology/BMT and Cellular Therapy Program [address] [place] [address] [place] [address] Isaura Wynn, COOKING CASING AND DRYING SUPERVISOR 800 [facility] [address] [place] [address] 03/10/2025 11:20 AM EDT Office Visit Pav CC Head, Neck & Respiratory 800 [facility], 2nd [place] [address] Elsa Razo, COOKING CASING AND DRYING SUPERVISOR 800 [place] [address] documented as of this encounter Visit Diagnoses [...] documented as of this encounter Care Teams Dipper And Baker Relationship Specialty Start Date End Date Zhao Harris MD 1210 [facility] [address] [place] [address] PCP - General 12/03/20 documented as of this encounter
--- OUTSIDE RECORDS SUMMARY | 2025-01-27 08:12 | XMS_ITS | Encounter Summary ---
Author Organization [email or web address] ([place], [place], [place], [place]) Address [address] [place] [address] Care Team Providers Care Hot Air Furnace Installer Repairer Name Role Phone Unavailable Primary Care Provider Unavailabl e Encounter Details Date Type Department Care Team (Late st Contact Info) Description 07/10/2019 Transcribed Document [facility] [place] Medicine [address] [place] [address] ProviderBrigida MD [address] [place] [address] Social History Tobacco Use Types [...] Brigida Vega MD - 07/10/2019 9:24 AM SERVICE [place] [address] HUGO AGUILAR JR :1955 Visit Time:07/10/2019 What to do next Your Diagnosis Chondromalacia, right knee, Chondromalacia, right knee Instructions From Your Care Team Weight bearing as tolerated, use cane or crutches if needed. Keep dressing clean and dry for at least 2 days. Resume all home medications. Usual diet as tolerated. [place]olan [place] 10/325mg 1 tablet every 6 hours as needed for pain- next dose due @ 3:30pm today 07/10/19. Follow-Up Appointments Follow Up with SURY SHARMA MD-ORT When 07/21/2019 02:00 PM EST Where: [address] [facility] [address] [place] [address]- Medications What How Much When Instructions Next [...] activities are safe for you. ??? Take mkae-ibg-wqzamsb and prescription medicines only as told by [...] 12/28/2017 Document Revised: 03/07/2018 Document Reviewed: 12/28/2017 [employer] Interactive Patient Education ?? 2019 [employer] General Anesthesia, Adult, Care After This [...] activities are safe for you. ??? Take vasz-zoo-ofiaivi and prescription medicines only as told by [...] 10/15/2001 Document Revised: 02/22/2018 Document Reviewed: 02/22/2018 [employer] Interactive Patient Education ?? 2019 [employer] Knee Arthroscopy, Care After Refer to [...] activities are safe for you. ??? Perform unbxf-ew-ggwdue exercises only as directed by your health [...] 01/26/2006 Document Revised: 12/08/2016 Document Reviewed: 07/05/2015 [employer] Interactive Patient Education ?? 2018 [email or web address] acetaminophen and hydrocodone (a SEET a MIN oh fen and laurie droe KOE done) Hycet, Lorcet, [place], Verdrocet, Vicodin, Xodol, Zamicet What is the [...] may report side effects to FDA at 2-020-XKQ-0706. What other drugs will affect acetaminophen and [...] affect acetaminophen and hydrocodone, including prescription and zwpy-bcz-hyswnka medicines, vitamins, and herbal products. Not all [...] to ensure that the information provided by [employer]. ('[employer]') is accurate, up-to-date, and complete, but no guarantee is made to that effect. Drug information contained herein may be time sensitive. [employer] information has been compiled for use by healthcare practitioners and consumers in the [place] and therefore [employer] does not warrant that uses outside of the [place] are appropriate, unless specifically indicated otherwise. [employer] drug information does not endorse drugs, diagnose patients or recommend therapy. [employer] drug information is an informational resource designed [...] effective or appropriate for any given patient. [facility] does not assume any responsibility for any aspect of healthcare administered with the aid of information [facility] provides. The information contained herein is not intended to cover all possible uses, directions, precautions, warnings, drug interactions, allergic reactions, or adverse effects. If you have questions about the drugs you are taking, check with your doctor, nurse or pharmacist. Copyright 8579-3722 [employer]. Version: 15.02. Revision Date: 05/27/2018. Emergency Awareness [...] Assistance with quitting is available by contacting 0-485-EXUI-NOW. This is a free resource providing counseling, [...] was given the opportunity to ask questions. Patient/Tower Erector Name: Patient/Tower Erector Signature: Relationship to Patient: Clinician/Hospital Tower Erector Signature: Date: documented in this encounter Plan of Treatment Not on file documented as of this encounter Visit Diagnoses Not on filedocumented in this encounter
--- OUTSIDE RECORDS SUMMARY | 2025-01-27 08:13 | XMS_ITS | Encounter Summary ---
Author Organization [facility] Address [address] [place] [address] Care Team Providers Care Offset Lithographic Press Setter Name Role Phone Zhao Harris MD Primary Care Provider [phone] Reason for Visit * Reason Comments Med Refill Encounter Details Date Type Department Care Team (Late st Contact Info) Description 01/18/2022 Refill [facility] [place] [address] [facility], [address] [place] [address] Regina Hill, PA [address] [place] [address] Hypertension, unspecified type Social History [...] Appointment PAV A Interventional Radiology [address] [place] [address] 02/10/2025 8:30 AM EDT Clinical Support P[facility] CC Hematology/BMT and Cellular Therapy Program 750 [facility], [address] [place] [address] 02/10/2025 9:00 AM EDT Office Visit [facility] CC Hematology/BMT and Cellular Therapy Program [address] [place] [address] Elaina Boss, ARAM [address] [address] 02/10/2025 10:30 AM EDT Appointment [facility]fusion [facility] 1 [address] [place] [address] 02/11/2025 2:00 PM EDT Appointment [facility] 1 [address] [place] [address] 02/12/2025 2:00 PM EDT Appointment [facility] 1 [address] [place] [address] 02/13/2025 2:00 PM EDT Appointment [facility] 1 [address] [place] [address] 02/14/2025 2:00 PM EDT Appointment [facility] 1 [address] [place] [address] 03/10/2025 8:30 AM EDT Clinical Support P[facility] Hematology/BMT and Cellular Therapy Program [address] [phone] 03/10/2025 9:00 AM EDT Office Visit PAV Hematology/BMT and Cellular Therapy Program [address] [phone] Isaura Wynn, DIMENSIONAL INTEGRATION ENGINEER 800 [facility] [address] [phone] 03/10/2025 11:20 AM EDT Office Visit Pav Head, Neck & Respiratory 800 [facility], 2nd [place] [address] Elsa Razo, DIMENSIONAL INTEGRATION ENGINEER [address] [place] [address] documented as of this encounter Visit Diagnoses Diagnosis Hypertension, unspecified type documented in this encounter Additional Health Concerns Infection Onset Date Last Indicated Resolved Time Respiratory Rule-Out 11/03/2024 11/03/2024 025 5:17 PM EDT documented as of this encounter Care Teams Offset Lithographic Press Setter Relationship Specialty Start Date End Date Zhao Harris MD [address] [place] [address] PCP - General 12/03/20 documented as of this encounter
--- OUTSIDE RECORDS SUMMARY | 2025-01-27 08:13 | XMS_ITS | Clinical Summary ---
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, unspecified vessel or [...] 30 tablet 3 5 Active HYDROcodone-shalom taminophen (Mosquero) 5-325 MG tablet Take 1 tablet by [...] and Cellular Therapy Program [address] [facility], [facility] [place] [place] [address] Virgen Vargas MD 01/20/2025 Telephone [facility] Hematology/BMT and Cellular Therapy Program [address] [facility], [address] [place] [address] [place] [address] Elaina Boss PA 01/17/2025 7:45 AM EDT - 01/17/2025 11:59 PM EDT Hospital Encounter [facility] H Infusion 800 [place] [address] Myelodysplasia (myelodysplastic syndrome) (CMS/HCC) (Primary Dx); Thrombocytopenia (CMS/HCC) Discharge Disposition: Home or Self Care 01/17/2025 Travel 01/16/2025 7:55 AM EDT - 01/16/2025 11:59 PM EDT Hospital Encounter [facility] Infusion [address] [place] [address] Myelodysplasia (myelodysplastic syndrome) (CMS/HCC) (Primary Dx) Discharge Disposition: Home or Self Care 01/16/2025 Travel 01/15/2025 9:58 AM EDT - 01/15/2025 11:59 PM EDT Hospital Encounter [facility] Infusion [address] [place] [address] Discharge Disposition: Home or Self Care 01/15/2025 8:11 AM EDT - 01/15/2025 9:57 AM EDT Hospital Encounter [facility] Infusion [address] [place] [address] Myelodysplasia (myelodysplastic syndrome) (CMS/HCC) (Primary Dx); Thrombocytopenia (CMS/HCC) Discharge Disposition: Home or Self Care 01/15/2025 Travel 01/14/2025 8:07 AM EDT - 01/14/2025 11:59 PM EDT Hospital Encounter [facility] 1 [address] [place] [address] Myelodysplasia (myelodysplastic syndrome) (CMS/HCC) (Primary Dx) Discharge Disposition: Home or Self Care 01/14/2025 Travel 01/13/2025 11:30 AM EDT - 01/13/2025 11:59 PM EDT Hospital Encounter [facility] Infusion [address] [place] [address] Myelodysplasia (myelodysplastic syndrome) (CMS/HCC) (Primary Dx); Thrombocytopenia (CMS/HCC) Discharge Disposition: Home or Self Care 01/13/2025 10:00 AM EDT Office Visit [facility] Hematology/BMT and Cellular Therapy Program [address] [phone] Isaura Wynn APRN Myelodysplasia (myelodysplastic syndrome) (CMS/HCC) (Primary Dx) 01/13/2025 9:30 AM EDT Clinical Support [facility] Hematology/BMT and Cellular Therapy Program [address] [address] 01/13/2025 Travel 01/12/2025 Telephone [facility] Hematology/BMT and Cellular Therapy Program [address] [phone] Virgen Vargas MD 01/06/2025 9:00 AM EDT Procedure Visit [facility] Hematology/BMT and Cellular Therapy Program [address] [phone] Kierra Novak APRN Myelodysplasia (myelodysplastic syndrome) (CMS/HCC) 01/06/2025 8:30 AM EDT Clinical Support [facility] Hematology/BMT and Cellular Therapy Program [address] [phone] Nate Ponce RN 01/06/2025 Travel 01/05/2025 Travel 01/01/2025 [facility] [place] [facility] [address] [facility]. [address] [place] [address] Ra Best MD 12/23/2024 Orders Only [facility] Hematology/BMT and Cellular Therapy Program [address] [place] [address] Adam Conway, RN Myelodysplasia (myelodysplastic syndrome) (CMS/HCC) (Primary Dx) 12/22/2024 9:58 AM EDT - 12/22/2024 11:59 PM EDT Hospital Encounter [facility] Infusion [address] [place] [address] Myelodysplasia (myelodysplastic syndrome) (CMS/HCC) (Primary Dx) Discharge Disposition: Home or Self Care 12/22/2024 8:24 AM EDT - 12/22/2024 9:57 AM EDT Hospital Encounter [facility] Infusion [address] [place] [address] Myelodysplasia (myelodysplastic syndrome) (CMS/HCC) (Primary Dx); Thrombocytopenia (CMS/HCC) Discharge Disposition: Home or Self Care 12/22/2024 Travel 12/21/2024 8:30 AM EDT - 12/21/2024 11:59 PM EDT Hospital Encounter [facility] 1 [address] [place] [address] Myelodysplasia (myelodysplastic syndrome) (CMS/HCC) (Primary Dx) Discharge Disposition: Home or Self Care 12/21/2024 Travel 12/20/2024 8:08 AM EDT - 12/20/2024 11:59 PM EDT Hospital Encounter [facility] 1 [address] [place] [address] Myelodysplasia (myelodysplastic syndrome) (CMS/HCC) (Primary Dx); Thrombocytopenia (CMS/HCC); SOB (shortness of breath) Discharge Disposition: Home or Self Care 12/20/2024 Travel 12/19/2024 8:30 AM EDT - 12/19/2024 11:59 PM EDT Hospital Encounter [facility] 2 [address] [place] [address] Myelodysplasia (myelodysplastic syndrome) (CMS/HCC) (Primary Dx) Discharge Disposition: Home or Self Care 12/19/2024 Travel 12/18/2024 9:46 AM EDT - 12/18/2024 11:59 PM EDT Hospital Encounter [facility] Infusion [address] [place] [address] Myelodysplasia (myelodysplastic syndrome) (CMS/HCC) (Primary Dx) Discharge Disposition: Home or Self Care 12/18/2024 8:30 AM EDT - 12/18/2024 9:45 AM EDT Hospital Encounter [facility]fusion [address] [place] [address] Myelodysplasia (myelodysplastic syndrome) (CMS/HCC) (Primary Dx); Thrombocytopenia (CMS/HCC) Discharge Disposition: Home or Self Care 12/18/2024 Travel 12/17/2024 8:23 AM EDT - 12/17/2024 11:59 PM EDT Hospital Encounter [facility] Infusion [address] [place] [address] Myelodysplasia (myelodysplastic syndrome) (CMS/HCC) (Primary Dx); Thrombocytopenia (CMS/HCC) Discharge Disposition: Home or Self Care 12/17/2024 Travel 12/16/2024 11:00 AM EDT - 12/16/2024 11:59 PM EDT Hospital Encounter [facility] Infusion [address] [place] [address] Myelodysplasia (myelodysplastic syndrome) (CMS/HCC) (Primary Dx) Discharge Disposition: Home or Self Care 12/16/2024 10:00 AM EDT - 12/16/2024 10:59 AM EDT Hospital Encounter [facility] Infusion [address] [place] [address] Myelodysplasia (myelodysplastic syndrome) (CMS/HCC) (Primary Dx); Thrombocytopenia (CMS/HCC) Discharge Disposition: Home or Self Care 12/16/2024 8:30 AM EDT Office Visit [facility] Hematology/BMT and Cellular Therapy Program 750 [facility], [address] [place] [address] [place] [address] Isaura Wynn APRN Myelodysplasia (myelodysplastic syndrome) (CMS/HCC) (Primary Dx) 12/16/2024 8:00 AM EDT Clinical Support [facility] Hematology/BMT and Cellular Therapy Program 750 [facility], [address] [place] [address] [place] [address] 12/16/2024 Orders Only [facility] Hematology/BMT and Cellular Therapy Program 750 [facility], [address] [place] [phone] Christina Ramos MD Myelodysplasia (myelodysplastic syndrome) (CMS/HCC) (Primary Dx) 12/16/2024 Travel 12/12/2024 Orders Only [facility] Hematology/BMT and Cellular Therapy Program 750 [facility], [address] [place] [phone] Gricel Gonzalez RN 12/11/2024 2:30 PM EDT Office Visit [facility] Vascular Interventional Radiology [address], [address] [place] [address] Judy Leung APRN, DNP Port-A-Cath in place (Primary Dx); Myelodysplasia (myelodysplastic syndrome) (CMS/HCC) 12/11/2024 1:00 PM EDT Clinical Support [facility] [address] [facility], 2nd [place] [address] Myelodysplasia (myelodysplastic syndrome) (CMS/HCC) (Primary Dx); Thrombocytopenia (CMS/HCC) 12/11/2024 9:00 AM EDT Office Visit [facility] Hematology/BMT and Cellular Therapy Program [address] [phone] Virgen Vargas MD Myelodysplasia (myelodysplastic syndrome) (CMS/HCC) (Primary Dx); Encounter for antineoplastic chemotherapy; 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); Pancytopenia due to chemotherapy (CMS/HCC); Immunosuppressed due to chemotherapy 12/11/2024 8:30 AM EDT Clinical Support [facility] Hematology/BMT and Cellular Therapy Program [address] [phone] Myelodysplasia (myelodysplastic syndrome) (CMS/HCC) 12/11/2024 Orders Only [facility] Hematology/BMT and Cellular Therapy Program [address] [facility], [address] [place] [phone] Jackie, Shahla E, 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 myeloid leukemia not having achieved remission (CMS/HCC) (Primary Dx) 12/11/2024 Travel 12/09/2024 1:30 PM EDT Clinical Support [facility] Cancer Acute Treatment Clinic [address] [facility], 2nd [place] [phone] Myelodysplasia (myelodysplastic syndrome) (CMS/HCC) (Primary Dx); Thrombocytopenia (CMS/HCC) 12/09/2024 9:00 AM EDT Procedure Visit [facility] Hematology/BMT and Cellular Therapy Program [address] [facility], [address] [place] [phone] Kierra Novak APRN Myelodysplasia (myelodysplastic syndrome) (CMS/HCC) 12/09/2024 8:30 AM EDT Clinical Support [facility] CC Hematology/BMT and Cellular Therapy Program [address] [facility], [address] [place] [phone] 12/09/2024 Telephone [facility] CC Hematology/BMT and Cellular Therapy Program [address] [place] [phone] Essie Ricks RN 12/09/2024 Travel 12/08/2024 Travel 12/04/2024 Telephone [facility] Vascular Interventional Radiology [address], [facility] Room [address] [address] Martha William 12/01/2024 8:41 AM EDT - 12/01/2024 11:59 PM EDT Hospital Encounter [facility] A Interventional Radiology [address] [place] [address] Gela Singer Thrombocytopenia (CMS/HCC) (Primary Dx); Myelodysplasia (myelodysplastic syndrome) (CMS/HCC) Discharge Disposition: Home or Self Care 12/01/2024 Travel 11/26/2024 10:00 AM EDT Office Visit [facility] Vascular Interventional Radiology [address] [facility] Room [address] [place] [phone] Latoya Nunez APRN Preop examination (Primary Dx) 11/26/2024 Travel 11/25/2024 Telephone [facility] Hematology/BMT and Cellular Therapy Program [address] [place] [address] Michelle Mast Distress Screen Follow-up 11/24/2024 2:30 PM EDT - 11/24/2024 11:59 PM EDT Hospital Encounter [facility]fusion [facility] 1 [address] [place] [address] Discharge Disposition: Home or Self Care 11/24/2024 1:59 PM EDT - 11/24/2024 2:29 PM EDT Hospital Encounter [facility] 1 [address] [place] [address] Myelodysplasia (myelodysplastic syndrome) (CMS/HCC) (Primary Dx); Thrombocytopenia (CMS/HCC) Discharge Disposition: Home or Self Care 11/24/2024 Travel 11/23/2024 1:43 PM EDT - 11/23/2024 11:59 PM EDT Hospital Encounter [facility] 1 [address] [place] [address] Myelodysplasia (myelodysplastic syndrome) (CMS/HCC) (Primary Dx) Discharge Disposition: Home or Self Care 11/23/2024 Travel 11/22/2024 1:59 PM EDT - 11/22/2024 11:59 PM EDT Hospital Encounter [facility] 1 [address] [place] [address] Myelodysplasia (myelodysplastic syndrome) (CMS/HCC) (Primary Dx); Thrombocytopenia (CMS/HCC) Discharge Disposition: Home or Self Care 11/22/2024 Travel 11/21/2024 1:30 PM EDT - 11/21/2024 11:59 PM EDT Hospital Encounter [facility] 1 [address] [place] [address] Myelodysplasia (myelodysplastic syndrome) (CMS/HCC) (Primary Dx) Discharge Disposition: Home or Self Care 11/21/2024 Travel 11/20/2024 2:06 PM EDT - 11/20/2024 11:59 PM EDT Hospital Encounter [facility] 1 [address] [place] [address] Myelodysplasia (myelodysplastic syndrome) (CMS/HCC) (Primary Dx) Discharge Disposition: Home or Self Care 11/20/2024 1:36 PM EDT - 11/20/2024 2:05 PM EDT Hospital Encounter [facility] 1 [address] [place] [address] Myelodysplasia (myelodysplastic syndrome) (CMS/HCC) (Primary Dx); Thrombocytopenia (CMS/HCC) Discharge Disposition: Home or Self Care 11/20/2024 Travel 11/19/2024 2:00 PM EDT - 11/19/2024 11:59 PM EDT Hospital Encounter [facility] 1 [address] [place] [address] Myelodysplasia (myelodysplastic syndrome) (CMS/HCC) (Primary Dx) Discharge Disposition: Home or Self Care 11/19/2024 Travel 11/19/2024 Orders Only [facility] Hematology/BMT and Cellular Therapy Program [address] [facility], [facility] [place] [address] Adam Conway, RN Myelodysplasia (myelodysplastic syndrome) (CMS/HCC) (Primary Dx) 11/18/2024 12:25 PM EDT - 11/18/2024 11:59 PM EDT Hospital Encounter [facility] Infusion Clinic 1 [address] [place] [address] Myelodysplasia (myelodysplastic syndrome) (CMS/HCC) (Primary Dx); Thrombocytopenia (CMS/HCC) Discharge Disposition: Home or Self Care 11/18/2024 11:00 AM EDT Office Visit [facility] CC Hematology/BMT and Cellular Therapy Program [address] [facility], [address] [place] [address] Isaura Wynn APRN Myelodysplasia (myelodysplastic syndrome) (CMS/HCC) (Primary Dx) 11/18/2024 10:30 AM EDT Clinical Support [facility] Hematology/BMT and Cellular Therapy Program [address] [facility], [address] [place] [address] 11/18/2024 Telephone [facility] [address] [place] [address] Maia Velasquez, PharmD 11/18/2024 Telephone [facility] Hematology/BMT and Cellular Therapy Program [address] [phone] Brittny Mahoney RN 11/18/2024 Telephone [facility] Hematology/BMT and Cellular Therapy Program [address] [phone] Gricel Gonzalez RN 11/18/2024 Travel 11/17/2024 Travel 11/10/2024 3:00 PM EDT - 11/10/2024 11:59 PM EDT Hospital Encounter [facility] [address] [place] [phone] Myelodysplasia (myelodysplastic syndrome) (CMS/HCC) (Primary Dx); Thrombocytopenia (CMS/HCC) Discharge Disposition: Home or Self Care 11/10/2024 2:00 PM EDT Procedure Visit [facility] Hematology/BMT and Cellular Therapy Program [address] [phone] Elaina Boss, PA Myelodysplasia (myelodysplastic syndrome) (CMS/HCC) (Primary Dx) 11/10/2024 1:30 PM EDT Clinical Support [facility] Hematology/BMT and Cellular Therapy Program [address] [place] [phone] Eliana Vicente, RN 11/10/2024 Travel 11/05/2024 11:00 AM EDT Clinical Support [facility] [address] [phone] Dyspnea on exertion 11/05/2024 10:00 AM EDT Office Visit [facility] [address] [phone] Elsa Razo, ESTRELLA Pre-transplant evaluation for stem cell transplant (Primary Dx); Myelodysplasia (myelodysplastic syndrome) (CMS/HCC); Dyspnea on exertion; Coronary artery disease involving solomon coronary artery of solomon heart without angina pectoris; Thrombocytopenia (CMS/HCC) 11/05/2024 Results Follow-Up [facility] [address] [facility], 2nd [place] [address] Elsa Razo APRN 11/05/2024 Travel 11/03/2024 2:31 PM EDT - 11/03/2024 6:28 PM EDT Emergency [facility] A Emergency Department [address] [place] [phone] Kyle Bearden MD Symptomatic anemia (Primary Dx); Thrombocytopenia (CMS/HCC); Neutropenia, unspecified type (CMS/HCC) Discharge Disposition: Home or Self Care 11/03/2024 Travel 11/03/2024 Telephone [facility] Hematology/BMT and Cellular Therapy Program [address] [place] [address] Virgen Vargas MD 10/29/2024 Telephone [facility] Hematology/BMT and Cellular Therapy Program [address] [place] [address] Virgen Vargas MD from Last [...] first t manav in the morning (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-COMPOUNDING TECHNICIAN) to steady your nerves or to [...] Upcoming Encounters Date Type Department Care Team ([facility] st Contact Info) Description 02/02/2025 11:00 AM EDT Appointment [facility] Interventional Radiology [address] [place] [address] 02/10/2025 8:30 AM EDT Clinical Support [facility] Hematology/BMT and Cellular Therapy Program [address] [place] [address] 02/10/2025 9:00 AM EDT Office Visit [facility] Hematology/BMT and Cellular Therapy Program [address] [place] [address] Elaina Boss, ARAM 800 [facility] [address] [place] [phone] 02/10/2025 10:30 AM EDT Appointment [facility] Infusion [facility] 1 [address] [place] [phone] 02/11/2025 2:00 PM EDT Appointment [facility] Infusion [facility] 1 [address] [place] [phone] 02/12/2025 2:00 PM EDT Appointment [facility] Infusion Clinic 1 [address] [place] [phone] 02/13/2025 2:00 PM EDT Appointment [facility] Infusion [facility] 1 [address] [place] [phone] 02/14/2025 2:00 PM EDT Appointment [facility]fusion [facility] 1 [address] [place] [phone] 03/10/2025 8:30 AM EDT Clinical Support [facility] Hematology/BMT and Cellular Therapy Program [address] [phone] 03/10/2025 9:00 AM EDT Office Visit [facility] Hematology/BMT and Cellular Therapy Program [address] [phone] Isaura Wynn, PERMASTONE APPLICATOR 800 [facility] [address] [place] [phone] 03/10/2025 11:20 AM EDT Office Visit [facility] Res[facility] [address] [facility], 2nd [place] [phone] Elsa Razo, PERMASTONE APPLICATOR [address] [place] [phone] Health Maintenance Due Date Last Done Comments [...] 2015 UKY-Abdominal Aortic Aneurysm (AAA) Screening 2020 [id number] Vaccine (3 - Pfizer risk series) 11/11/2020 [...] this topic Medical Devices Implanted Type Area Crepe Machine Operator Device Identifier Shelf Expiration Date Model / Serial / Lot Port Clearvue Power 8fr - [id number] Implanted:Qty: 1 on 12/01/2024 by Mckinley Lee MD at [facility] [employer] V[facility]-[id number] / / Procedures Procedure Name Priority Date/Time [...] of8 resultswithin the time period is included. [facility] Product Code [id number] BLOO D BANK Dispense Status Transfused BLOOD BANK Blood Expiration Date [id number] BLOOD BANK Unit Number [id number] B LOOD BANK Product Blood Type 9500 BLOOD BANK Blood Type O- BLOOD BANK Crossmatch Compatible BLOOD BANK Other Kayli CHIU BLOOD BANK PRODUCT ORDER VIKAS Final Result Performing Organization Address City/State/[facility] Co de Phone Number BLOOD BANK [address] [place] [address], * (ABNORMAL) CBC and differential (01/17/2025 8:03 AM EDT) Only the most recent of17 resultswithin the time period is included. [facility] WBC Count 0.54(LL) 3.70 - 10.30 10*3/uL LAB HEMATOLOGY METHOD 01/17/2025 9:41 AM EDT [facility] RBC Count 2.55(L) 4.60 - 6.10 10*6/uL LAB HEMATOLOGY METHOD 01/17/2025 9:41 AM EDT [facility] HGB 7.6(L) 13.7 - 17.5 g/dL LAB HEMATOLOGY METHOD 01/17/2025 9:41 AM EDT [facility] HCT 21.6(L) 40.0 - 51.0 % LAB HEMATOLOGY METHOD 01/17/2025 9:41 AM EDT [facility] Platelet Count 23(L) 155 - 369 10*3/uL LAB HEMATOLOGY METHOD 01/17/2025 9:41 AM EDT [facility] MCV 85 79 - 98 fL LAB HEMATOLOGY METHOD 01/17/2025 9:41 AM EDT [facility] MCH 29.8 26.0 - 32.0 pg LAB HEMATOLOGY METHOD 01/17/2025 9:41 AM EDT [facility] MCHC 35.2 30.7 - 35.5 g/dL LAB HEMATOLOGY METHOD 01/17/2025 9:41 AM EDT [facility] RDW 14.2 11.5 - 14.5 % LAB HEMATOLOGY METHOD 01/17/2025 9:41 AM EDT [facility] MPV 9.0 8.8 - 12.5 fL LAB HEMATOLOGY METHOD 01/17/2025 9:41 AM EDT [facility] nRBC 0.0 <=0.0 per 100 WBCs LAB HEMATOLOGY METHOD 01/17/2025 9:41 AM EDT [facility] Differential Type Automated LAB HEMATOLOGY METHOD 01/17/2025 9:41 AM EDT [facility] Neutrophils % 7 % LAB HEMATOLOGY METHOD 01/17/2025 9:41 AM EDT [facility] Lymphocytes % 91 % LAB HEMATOLOGY METHOD 01/17/2025 9:41 AM EDT [facility] Monocytes % 2 % LAB HEMATOLOGY METHOD 01/17/2025 9:41 AM EDT [facility] Eosinophils % 0 % LAB HEMATOLOGY METHOD 01/17/2025 9:41 AM EDT [facility] Basophils % 0 % LAB HEMATOLOGY METHOD 01/17/2025 9:41 AM EDT [facility] Immature Granulocytes % 0 % LAB HEMATOLOGY METHOD 01/17/2025 9:41 AM EDT [facility] Neutrophils Absolute 0.04(LL) 1.60 - 6.10 10*3/uL LAB HEMATOLOGY METHOD 01/17/2025 9:41 AM EDT [facility] Lymphocytes Absolute 0.49(L) 1.20 - 3.90 10*3/uL LAB HEMATOLOGY METHOD 01/17/2025 9:41 AM EDT [facility] Monocytes Absolute 0.01(L) 0.30 - 0.90 10*3/uL LAB HEMATOLOGY METHOD 01/17/2025 9:41 AM EDT [facility] Eosinophils Absolute 0.00 0.00 - 0.50 10*3/uL LAB HEMATOLOGY METHOD 01/17/2025 9:41 AM EDT [facility] Basophils Absolute 0.00 0.00 - 0.10 10*3/uL LAB HEMATOLOGY METHOD 01/17/2025 9:41 AM EDT [facility] Immature Granulocytes Absolute 0.00 0.00 - 0.06 10*3/uL LAB HEMATOLOGY METHOD 01/17/2025 9:41 AM EDT [facility] Blood Blood sample taken from central line / Unknown (Port) Long-term Catheter / Unknown 01/17/2025 8:03 AM EDT 01/17/2025 8:07 AM EDT Narrative [facility] - 01/17/2025 9:41 AM EDT Therapeutic decision making should be based on absolute values, rather than percentages. Virgen Vargas MD LAB BLOOD ORDERABLES Final Re sult [facility] [address] [place] [address] * Type and Screen (01/16/2025 9:54 AM [...] ORDERABLE S Final Result Performing Organization Address City/[facility]/ZIP Co de Phone Number BLOOD BANK [address] [place] [address], [place] * (ABNORMAL) Platelet count (01/16/2025 8:12 AM EDT) Only the most recent of11 resultswithin the time period is included. Platelet Count 39(L) 155 - 369 10*3/uL LAB HEMATOLOGY METHOD 01/16/2025 8:38 AM EDT [facility] Blood Blood sample taken from central line / Unknown Venipuncture / Unknown 01/16/2025 8:12 AM EDT 01/16/2025 8:27 AM EDT us Virgen Vargas MD LAB BLOOD ORDERABLES Final Re sult [facility] [address] [place] [address] * (ABNORMAL) CBC W/O Differential (01/16/2025 8:12 AM EDT) Only the most recent of2 resultswithin the time period is included. WBC Count 0.49(LL) 3.70 - 10.30 10*3/uL LAB HEMATOLOGY METHOD 01/16/2025 11:30 AM EDT [facility] RBC Count 2.65(L) 4.60 - 6.10 10*6/uL LAB HEMATOLOGY METHOD 01/16/2025 11:30 AM EDT [facility] HGB 8.0(L) 13.7 - 17.5 g/dL LAB HEMATOLOGY METHOD 01/16/2025 11:30 AM EDT [facility] HCT 23.0(L) 40.0 - 51.0 % LAB HEMATOLOGY METHOD 01/16/2025 11:30 AM EDT [facility] Platelet Count 39(L) 155 - 369 10*3/uL LAB HEMATOLOGY METHOD 01/16/2025 11:30 AM EDT [facility] MCV 87 79 - 98 fL LAB HEMATOLOGY METHOD 01/16/2025 11:30 AM EDT [facility] MCH 30.2 26.0 - 32.0 pg LAB HEMATOLOGY METHOD 01/16/2025 11:30 AM EDT [facility] MCHC 34.8 30.7 - 35.5 g/dL LAB HEMATOLOGY METHOD 01/16/2025 11:30 AM EDT [facility] RDW 14.5 11.5 - 14.5 % LAB HEMATOLOGY METHOD 01/16/2025 11:30 AM EDT [facility] MPV 10.2 8.8 - 12.5 fL LAB HEMATOLOGY METHOD 01/16/2025 11:30 AM EDT [facility] nRBC 0.0 <=0.0 per 100 WBCs LAB HEMATOLOGY METHOD 01/16/2025 11:30 AM EDT [facility] Blood Blood sample taken from central line / Unknown Venipuncture / Unknown 01/16/2025 8:12 AM EDT 01/16/2025 8:27 AM EDT Virgen Vargas MD LAB BLOOD ORDERABLES Final Re sult [facility] [address] [place] [address] * Transfuse platelets (01/15/2025 10:55 AM EDT) [...] ORDERAB LES Final Result BLOOD BANK [address] [place] [address], * Prepare Leukocyte Reduced Platelets: 1 Units (01/15/2025 9:55 AM EDT) Only the most recent of13 resultswithin the time period is included. Product Code [id number] CH BLOO D BANK Dispense Status Transfused BLOOD BANK Blood Expiration Date [id number] BLOOD BANK Unit Number [id number] CH B LOOD BANK Product Blood Type 6200 BLOOD BANK Blood Type A+ BLOOD BANK Blood Venous blood specimen / Unknown Kayli CHIU BLOOD BANK PRODUCT ORDER VIKAS Final Result Performing Organization Address [facility] Co de Phone Number BLOOD [facility] [address] [place] [address], * (ABNORMAL) Uric acid (01/15/2025 8:17 AM EDT) Only the most recent of3 resultswithin the time period is included. Uric Acid, Plasma 3.0(L) 3.7 - 8.0 mg/dL 01/15/2025 9:19 AM EDT [facility] Blood Blood sample taken from central line / Unknown (Port) Long-term Catheter / Unknown 01/15/2025 8:17 AM EDT 01/15/2025 8:47 AM EDT Virgen Vargas MD LAB BLOOD ORDERABLES Final Re sult [facility] [address] [place] [address] * Phosphorus (01/15/2025 8:17 AM EDT) Only the most recent of3 resultswithin the time period is included. Phosphorus, Plasma 3.1 2.5 - 4.5 mg/dL 01/15/2025 9:19 AM EDT [facility] Blood Blood sample taken from central line / Unknown (Port) Long-term Catheter / Unknown 01/15/2025 8:17 AM EDT 01/15/2025 8:47 AM EDT Virgen Vargas MD LAB BLOOD ORDERABLES Final Re sult Performing Organization Address [facility] [place] [address] * Magnesium (01/15/2025 8:17 AM EDT) Only the most recent of3 resultswithin the time period is included. [facility] Magnesium, Plasma 2.2 1.9 - 2.4 mg/dL 01/15/2025 9:19 AM EDT [facility] Blood Blood sample taken from central line / Unknown (Port) Long-term Catheter / Unknown 01/15/2025 8:17 AM EDT 01/15/2025 8:47 AM EDT Virgen Vargas MD LAB BLOOD ORDERABLES Final Re sult Performing Organization Address [facility] Co de Phone Number [facility] [address] [place] [address] * LACTATE DEHYDROGENASE (01/15/2025 8:17 AM EDT) Only the most recent of3 resultswithin the time period is included. LDH, Plasma 192 116 - 250 U/L 01/15/2025 9:19 AM EDT [facility] Blood Blood sample taken from central line / Unknown (Port) Long-term Catheter / Unknown 01/15/2025 8:17 AM EDT 01/15/2025 8:47 AM EDT us Virgen Vargas MD LAB BLOOD ORDERABLES Final Re sult [facility] [address] [place] [address] * (ABNORMAL) BASIC METABOLIC PANEL (01/15/2025 8:17 AM EDT) Only the most recent of2 resultswithin the time period is included. Glucose, Plasma 96 74 - 99 mg/dL 01/15/2025 9:19 AM EDT [facility] BUN, Plasma 12 8 - 23 mg/dL 01/15/2025 9:19 AM EDT [facility] Creatinine, Plasma 0.71 0.70 - 1.20 mg/dL 01/15/2025 9:19 AM EDT [facility] BUN/Creatinine Ratio 17 01/15/2025 9:19 AM EDT [facility] Sodium, Plasma 139 136 - 145 mmol/L 01/15/2025 9:19 AM EDT [facility] Potassium, Plasma 4.1 3.6 - 4.9 mmol/L 01/15/2025 9:19 AM EDT [facility] Chloride, Plasma 108(H) 97 - 107 mmol/L 01/15/2025 9:19 AM EDT [facility] CO2, Plasma 21(L) 22 - 29 mmol/L 01/15/2025 9:19 AM EDT [facility] Anion Gap 10 6 - 16 mmol/L 01/15/2025 9:19 AM EDT [facility] Total Calcium, Plasma 8.9 8.9 - 10.2 mg/dL 01/15/2025 9:19 AM EDT [facility] eGFRcr 99.3 mL/min/1.7 3m*2 01/15/2025 9:19 AM EDT [facility] Comment:Reported eGFRcr in m L/min/1.73m2 is based the CKD-EPI 2020 equation that does not use a race coefficient. Blood Blood sample taken from central line / Unknown (Port) Long-term Catheter / Unknown 01/15/2025 8:17 AM EDT 01/15/2025 8:47 AM EDT us Virgen Vargas MD LAB BLOOD ORDERABLES Final Re sult [facility] [address] [place] [address] * (ABNORMAL) Comprehensive Metabolic Panel, Plasma (01/13/2025 10:02 AM EDT) Only the most recent of13 resultswithin the time period is included. Glucose, Plasma 104(H) 74 - 99 mg/dL 01/13/2025 10:56 AM EDT [facility] BUN, Plasma 9 8 - 23 mg/dL 01/13/2025 10:56 AM EDT [facility] Creatinine, Plasma 0.72 0.70 - 1.20 mg/dL 01/13/2025 10:56 AM EDT [facility] BUN/Creatinine Ratio 13 01/13/2025 10:56 AM EDT [facility] Sodium, Plasma 140 136 - 145 mmol/L 01/13/2025 10:56 AM EDT [facility] Potassium, Plasma 4.5 3.6 - 4.9 mmol/L 01/13/2025 10:56 AM EDT [facility] Chloride, Plasma 109(H) 97 - 107 mmol/L 01/13/2025 10:56 AM EDT [facility] CO2, Plasma 21(L) 22 - 29 mmol/L 01/13/2025 10:56 AM EDT [facility] Anion Gap 10 6 - 16 mmol/L 01/13/2025 10:56 AM EDT [facility] Total Calcium, Plasma 8.9 8.9 - 10.2 mg/dL 01/13/2025 10:56 AM EDT [facility] Total Protein 6.9 6.3 - 7.9 g/dL 01/13/2025 10:56 AM EDT [facility] Albumin, Plasma 4.1 3.5 - 5.2 g/dL 01/13/2025 10:56 AM EDT [facility] AST, Plasma 84(H) 10 - 50 U/L 01/13/2025 10:56 AM EDT [facility] ALT, Plasma 95(H) 10 - 50 U/L 01/13/2025 10:56 AM EDT [facility] Alkaline Phosphatase, Plasma 83 40 - 115 U/L 01/13/2025 10:56 AM EDT [facility] Total Bilirubin, Plasma 0.7 0.2 - 1.1 mg/dL 01/13/2025 10:56 AM EDT [facility] eGFRcr 98.9 mL/min/1.7 3m*2 01/13/2025 10:56 AM EDT [facility] Comment:Reported eGFRcr in m L/min/1.73m2 is based the CKD-EPI 2020 equation that does not use a race coefficient. Blood Blood sample taken from central line / Unknown (Port) Long-term Catheter / Unknown 01/13/2025 10:02 AM EDT 01/13/2025 10:24 AM EDT us Isaura Wynn APRN LAB BLOOD ORDERABLES Final Res ult [facility] [address] [place] [address] * BIOPSY BONE MARROW (01/06/2025 10:00 AM EDT) Narrative Kierra Novak APRN - 01/06/2025 10:00 AM EDT Kierra Novak APRN 01/06/2025 10:24 AM Biopsy bone marrow Date/Time: 01/06/2025 10:00 AM Performed by: Kierra Novak APRN Authorized by: Kierra Novak APRN Consent: Consent obtained: Written Consent given by: Patient Risks, benefits, and alternatives were discussed: yes Risks discussed: Bleeding, infection and pain [place] protocol: Procedure explained and questions answered to [...] well, no immediate complications us Kierra Novak PERMASTONE APPLICATOR IN CLINIC/BEDSIDE ORDERAB LES Final Result * Leukemia/Lymphoma - Immunophenotyping by Flow Cytometry (01/06/2025 9:48 AM EDT) Only the most recent of3 resultswithin the time period is included. Clinical Indication AML 01/07/2025 10:18 AM EDT [facility] Flow Cytometry Interpretation APPROXIMATELY 16% MYELOID BLASTS; EXPRESSING CD34, CD117, CD13, CD33, HLA-DR, PARTIAL CD7, PARTIAL CD123, VARIABLE CD38, AND MODERATE CD45, SEE COMMENT, BONE MARROW ASPIRATE. 01/07/2025 10:18 AM EDT [facility] Comments Specimen viability is 79%. [...] disease. Final interpretation requires morphologic correlation ([id number]). The following antibodies were used in this analysis: CD45, CD2, CD3, CD4, CD5, CD7, CD8, CD10, CD13, CD14, CD15, CD16, CD19, CD20, CD33, CD34, CD38, CD56, CD117, HLA-DR, kappa surface light chains, lambda surface light chains, CD123 01/07/2025 10:18 AM EDT [facility] Disclaimer This test was developed [...] clinical laboratory testing. 01/07/2025 10:18 AM EDT [facility] Pathologist Signature Reviewed by: Tessie Peralta MD 01/07/2025 10:18 AM EDT [facility] MRD Indicated Test Not Indicated 10:18 AM EDT [facility] Bone Marrow Specimen from bone marrow obtained by aspiration / Unknown Non-blood Collection / Unknown 01/06/2025 9:48 AM EDT 01/06/2025 11:20 AM EDT Virgen Vargas MD LAB FLOW CYTOMETRY ORDERABLES Final Result Performing Organization Address City/State/[facility] Co de Phone Number [facility] [address] [place] [address] * Bone marrow exam (01/06/2025 9:48 AM EDT) Only the most recent of3 resultswithin the time period is included. Case Report Bone Marrow Case: [id number] Authorizing Provider: Virgen Vargas MD Collected: 01/06/2025 0948 Ordering Location: [facility] Hematology/BMT and Received: 01/06/2025 1108 Cellular Therapy Program Pathologist: Tessie Peralta MD Specimens: A) - Bone Marrow Aspirate, left B) - Bone Marrow Biopsy, left C) - Peripheral Blood for Bone Marrow 6:13 PM EDT [facility] Final Diagnosis BONE MARROW, LEFT POSTERIOR ILIAC CREST, (PERIPHERAL SMEAR, ASPIRATE SMEARS, AND CORE BIOPSY): - MILDLY HYPOCELLULAR BONE MARROW WITH ERYTHROID HYPERPLASIA, MARKEDLY REDUCED GRANULOPOIESIS, PERSISTENT DYSPOIESIS AND 10% BLASTS, SEE COMMENT. 6:13 PM EDT [facility] at 1813 EDT Comment The marrow cellularity is composed of erythroid cells with markedly reduced granulopoiesis and decreased megakaryocytes. Persistent trilineage dyspoiesis is noted. The blast percentages are higher by flow cytometry analysis as the majority of marrow cellularity consists of erythroid precursors that are removed by flow cytometry. 5 6:13 PM T [facility] Clinical Information AML 12/22 5 6:13 PM T [facility] CBC and Differential [...] blasts are identified. 5 6:13 PM T [facility] Bone Marrow Differential BONE MARROW DIFFERENTIAL: 400 cells Normal Patient Neutrophils 15-50 0 Metamyelocytes 4-19 1 Myelocytes 1-18 2 Promyelocytes 1-8 1 Blasts 0-2 10 Monocytes 0-5 0 Erythroid 16-38 73 Lymphocytes 3-24 4 Eosinophils 0-6 1 Basophils 0-2 0 Plasma cells 0-4 8 Other 5 6:13 PM EDT [facility] Bone [...] trabeculae are unremarkable. 5 6:13 PM EDT [facility] Special and Immunohistochemical Stains Immunohistochemica l [...] developed by and are performed at the [facility], [address] [place] [address]. All tests reported here, except those addressing [...] on decalcified specimens. 5 6:13 PM EDT [facility] Flow Cytometry Interpretation APPROXIMATELY 16% MYELOID BLASTS; EXPRESSING CD34, CD117, CD13, CD33, HLA-DR, PARTIAL CD7, PARTIAL CD123, VARIABLE CD38, AND MODERATE CD45, SEE COMMENT, BONE MARROW ASPIRATE ([id number]) 5 6:13 PM EDT [facility] Gross Description B. LEFT A single specimen is received in formalin labeled bone marrow biopsy left posterior iliac crest and consists of 2 piece(s) of tissue measuring 0.8/0.2 cm in length 0.2 cm in diameter. The specimen is submitted in to Histology for decalcification and routine processing. Cold Time: <1m 6:13 PM EDT [facility] Note: A resident was involved in the service. I attest I examined the relevant preparations for the specimens and confirmed the diagnosis or interpretation. 6:13 PM EDT [facility] Bone [...] MD LAB PATHOLOGY ORDERABLES Terri l Result [facility] [address] [place] [address] * Group A Streptococcus by PCR (12/16/2024 9:40 AM EDT) Group A Streptococcus PCR Result Not Detected Not Detected 12/16/2024 11:53 AM EDT [facility] Swab Pharyngeal structure / Unknown Non-blood Collection / Unknown 12/16/2024 9:40 AM EDT 12/16/2024 10:10 AM EDT us Isaura Wynn APRN LAB MICROBIOLOGY - GENERAL ORD ERABLES Final Result Performing Organization Address City/[facility]/ZIP Co de Phone Number [facility] [address] [place] [address] * Streptococcus Culture (12/16/2024 9:40 AM EDT) Culture Reading Strep A No Streptococcus pyogenes or Streptococcus dysgalactiae isolated 12/17/2024 2:28 PM EDT [facility] Swab Pharyngeal structure / Unknown Non-blood Collection / Unknown 12/16/2024 9:40 AM EDT 12/16/2024 10:10 AM EDT Isaura Wynn APRN LAB MICROBIOLOGY - GENERAL ORD ERABLES Final Result Performing Organization Address [facility] Co de Phone Number [facility] [address] [place] [address] * Morphology (12/11/2024 8:38 AM EDT) Only the most recent of4 resultswithin the time period is included. Elliptocytes/ Ovalocytes Present LAB HEMATOLOGY METHOD 12/11/2024 10:53 AM EDT [facility] RBC Morphology Slide Reviewed LAB HEMATOLOGY METHOD 12/11/2024 10:53 AM EDT [facility] Platelet Estimate Platelet smear estimate consistent with automated count LAB HEMATOLOGY METHOD 12/11/2024 10:53 AM EDT [facility] Blood Venous blood specimen / Unknown Venipuncture / Unknown 12/11/2024 8:38 AM EDT 12/11/2024 8:50 AM EDT Virgen Vargas MD LAB BLOOD ORDERABLES Final Re sult Performing Organization Address City/[facility] Co de Phone Number [facility] [address] [place] [address] * (ABNORMAL) Manual Differential (12/11/2024 8:38 AM EDT) Only the most recent of3 resultswithin the time period is included. Blasts % 1 % LAB HEMATOLOGY METHOD 12/11/2024 10:53 AM EDT [facility] Promyelocytes % 0 % LAB HEMATOLOGY METHOD 12/11/2024 10:53 AM EDT [facility] Myelocytes % 0 % LAB HEMATOLOGY METHOD 12/11/2024 10:53 AM EDT [facility] Metamyelocytes % 0 % LAB HEMATOLOGY METHOD 12/11/2024 10:53 AM EDT [facility] Neutrophils % 4 % LAB HEMATOLOGY [...] AM EDT [facility] Basophils % 0 % LAB HEMATOLOGY METHOD 12/11/2024 10:53 AM EDT [facility] Blasts Absolute 0.01 10*3/UL LAB HEMATOLOGY METHOD 12/11/2024 10:53 AM EDT [facility] Promyelocytes Absolute 0.00 10*3/uL LAB HEMATOLOGY METHOD 12/11/2024 10:53 AM EDT [facility] Myelocytes Absolute 0.00 10*3/uL LAB HEMATOLOGY METHOD 12/11/2024 10:53 AM EDT [facility] Metamyelocytes Absolute 0.00 10*3/uL LAB HEMATOLOGY METHOD 12/11/2024 10:53 AM EDT [facility] Neutrophils Absolute 0.02(LL) 1.60 - 6.10 10*3/uL LAB HEMATOLOGY METHOD 12/11/2024 10:53 AM EDT [facility] Lymphocytes Absolute 0.55(L) 1.20 - 3.90 10*3/uL LAB HEMATOLOGY METHOD 12/11/2024 10:53 AM EDT [facility] Reactive Lymphocytes Absolute 0.02 10*3/uL LAB HEMATOLOGY METHOD 12/11/2024 10:53 AM EDT [facility] Monocytes Absolute 0.01(L) 0.30 - 0.90 10*3/uL LAB HEMATOLOGY METHOD 12/11/2024 10:53 AM EDT [facility] Eosinophils Absolute 0.00 0.00 - 0.50 10*3/uL LAB HEMATOLOGY METHOD 12/11/2024 10:53 AM EDT [facility] Basophils Absolute 0.00 0.00 - 0.10 10*3/uL LAB HEMATOLOGY METHOD 12/11/2024 10:53 AM EDT [facility] Blood Venous blood specimen / Unknown Venipuncture / Unknown 12/11/2024 8:38 AM EDT 12/11/2024 8:50 AM EDT Virgen Vargas MD LAB BLOOD ORDERABLES Final Re sult Performing Organization Address City/[facility]/ZIP Co de Phone Number [facility] [address] [place] [address] * Peripheral blood smear, pathologist interpretation (12/11/2024 8:38 AM EDT) Only the most recent of3 resultswithin the time period is included. Pathologist [facility] Clinical Diagnosis, Peripheral Smear History of acute [...] ORDERABLES Terri l Result Performing Organization Address City/[facility] Co de Phone Number [facility] [address] [place] [phone] * Chromosome Karyotype, Oncology (12/09/2024 10:15 AM [...] were observed on this patient's previous specimen [id number] and indicate persistent disease. Clinical correlation is recommended. Note: Per [employer] (CAP) requirement additional karyotypes were performed [...] MD LAB CYTOGENETICS ORDERABLES F inal Result [facility] [address] [place] [address] * BIOPSY BONE MARROW (12/09/2024 10:00 AM EDT) Narrative Kierra Novak APRN - 12/09/2024 10:00 AM EDT Kierra Novak APRN 12/09/2024 12:08 PM Biopsy bone marrow Date/Time: 12/09/2024 10:00 AM Performed by: Kierra Novak APRN Authorized by: Kierra Novak APRN Consent: Consent obtained: Written Consent given by: Patient Risks, benefits, and alternatives were discussed: yes Risks discussed: Bleeding, infection and pain [place] protocol: Procedure explained and questions answered to [...] for port placement. New AML, starting chemotherapy. Toeing Stockings: Mckinley Lee MD Secondary Lot Attendant: Dr. David Holt Rad Dose: 6 mGy [...] was placed supine on the fluoro table. Judicial Law Clerk ultrasonography revealed the vein to be compressible [...] with no evidence of complication. Device: 6 Chadian port catheter cut to length of 25 cm. COMPARISON: None. FINDINGS: Patent R IJV COMPLICATION: No. Procedure Note Mckinley Lee MD - 12/02/2024 CLINICAL INDICATION: 69M here for port placement. New AML, starting chemotherapy. Toeing Stockings: Mckinley Lee MD Secondary Lot Attendant: Dr. David Holt Rad Dose: 6 mGy [...] patient was placed supine on the fluoro table.Judicial Law Clerk ultrasonography revealed the vein to be compressible [...] well with no evidence ofcomplication. Device: 6 Chadian port catheter cut to length of 25 [...] MD on 12/02/2024 7:02 AM Isaura Wynn PERMASTONE APPLICATOR IMG IR PROCEDURES Final Result * (ABNORMAL) [...] sult [facility] [address] [place] [address] * Protime-INR (11/26/2024 10:51 AM EDT) Prothrombin [...] INR 2.5 to 3.5 Prevention of recurrent [place] INR 2.5 to 3.5 us Latoya Nunez PERMASTONE APPLICATOR LAB BLOOD ORDERABLES Final R esult Performing Organization Address City/[facility]/ZIP Co de Phone Number [facility] [address] [place] [address] * BIOPSY BONE MARROW (11/10/2024 2:00 PM [...] 11/05/2024 11:21 AM EDT us Elsa Razo PERMASTONE APPLICATOR LAB BLOOD ORDERABLES Fin al Result [facility] [address] [place] [address] * ECG Adult (Now - Performed in your clinic) (11/05/2024 10:10 AM EDT) Only the most recent of2 resultswithin the time period is included. EKG DIAGNOSIS CLASS Normal MUSE ECG Ventricular Rate 71 BPM MUSE ECG Atrial Rate 71 BPM MUSE ECG NH Interval 154 ms MUSE ECG QRSD Interval 80 ms MUSE ECG QT Interval 404 ms MUSE ECG QTC Interval 439 ms MUSE ECG P [place] 45 degrees MUSE ECG R [place] 15 degrees MUSE ECG T Wave [place] 42 degrees MUSE ECG Diagnosis Normal sinus rhythm MUSE ECG Diagnosis Normal ECG MUSE ECG Diagnosis MUSE ECG Diagnosis Confirmed by Orestes Stone ([id number]) on 11/05/2024 10:19:58 AM MUSE ECG 11/05/2024 10:1 0 AM EDT 11/05/2024 10:19 AM EDT Elsa Razo APRN ECG ORDERABLES Final Re sult Performing Organization Address [facility] Co de Phone Number MUSE ECG [...] esult [facility] [address] [place] [address] * (ABNORMAL) Urinalysis with reflex microscopic (Culture NOT Included) (11/03/2024 4:05 PM EDT) Color, Urine Yellow LAB URINALYSIS - AUTOMATED METHOD 11/03/2024 4:23 PM EDT [facility] Clarity, Urine Clear LAB URINALYSIS - AUTOMATED METHOD 11/03/2024 4:23 PM EDT [facility] Spec [place], Urine 1.018 1.005 - 1.030 LAB URINALYSIS [...] R esult [facility] [address] [place] [address] * CT Head wo IV Contrast (11/03/2024 [...] Final Result [facility] [address] [place] [address] * XR Chest 1 View (11/03/2024 3:00 [...] Respiratory PCR Panel is performed using the Integrated [employer] ePlex instrument. This test is FDA approved for use with Nasopharyngeal swabs only. This test is used for clinical purposes. It should not be regarded as investigational or for research. The [facility] Clinical Microbiology Laboratory is certified under the Clinical Laboratory Improvement Amendments of 1988 (CLIA-88) as qualified to perform high complexity clinical laboratory testing. Tati Fam MD LAB MICROBIOLOGY - GENERAL O RDERABLES Final Result Performing Organization Address City/[facility]/[place] [address] * Lactic acid, venous (11/03/2024 2:25 PM EDT) [facility] Lactate, Venous, Whole Blood 0.9 0.5 - 2.2 mmol/L LAB HEMATOLOGY METHOD 11/03/2024 2:38 PM EDT [facility] Blood Venous blood specimen / Unknown Venipuncture / Unknown 11/03/2024 2:25 PM EDT 11/03/2024 2:36 PM EDT Result [facility] Tati Fam MD LAB BLOOD ORDERABLES Final R esult Performing Organization Address [facility] [place] [address] * Hepatitis C Antibody w/Reflex to HCV Quant PCR (09/29/2024 12:51 PM EDT) Pathologist [facility] Hepatitis C Antibody Negative Negative 09/29/2024 2:06 PM EDT [facility] Blood Venous blood specimen / Unknown Venipuncture / Unknown 09/29/2024 12:51 PM EDT 09/29/2024 1:22 PM EDT Virgen Vargas MD LAB BLOOD ORDERABLES Final Re sult Performing Organization Address City/[facility]/ZIP Co de Phone Number [facility] [address] [place] [address] from Last 3 Months or Most Recently Relevant to Health Maintenance Insurance [employer] Care Teams Intervention Teacher Relationship Specialty Start Date End Date Zhao Harris MD [address] [place] [address] PCP - General 12/03/20
--- OUTSIDE RECORDS SUMMARY | 2025-01-27 08:13 | XMS_ITS | Encounter Summary ---
Author Organization [facility] Address [address] 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, unspecified vessel or [...] Appointment PAV A Interventional Radiology [address] [place] [phone] 02/10/2025 8:30 AM EDT Clinical Support PAV CC Hematology/BMT and Cellular Therapy Program 750 [facility] [place] [phone] 02/10/2025 9:00 AM EDT Office Visit PAV Hematology/BMT and Cellular Therapy Program [address] [phone] Elaina Boss, PA 800 [facility] [address] [place] [phone] 02/10/2025 10:30 AM EDT Appointment [facility] 1 [address] [place] [address] 02/11/2025 2:00 PM EDT Appointment [facility] 1 [address] [place] [phone] 02/12/2025 2:00 PM EDT Appointment [facility] 1 [address] [place] [address] 02/13/2025 2:00 PM EDT Appointment [facility] 1 [address] [place] [address] 02/14/2025 2:00 PM EDT Appointment [facility] 1 [address] [place] [address] 03/10/2025 8:30 AM EDT Clinical Support PAV Hematology/BMT and Cellular Therapy Program [address] [phone] 03/10/2025 9:00 AM EDT Office Visit PAV Hematology/BMT and Cellular Therapy Program [address] [phone] Isaura Wynn, BULK SAUSAGE CASING TIER OFF 800 [facility] [address] [place] [phone] 03/10/2025 11:20 AM EDT Office Visit Pav Head, Neck & Respiratory 800 [facility], 2nd [place] [phone] Elsa Razo, BULK SAUSAGE CASING TIER OFF [address] [place] [address] documented as of this encounter Visit Diagnoses Diagnosis 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
--- OUTSIDE RECORDS SUMMARY | 2025-01-27 08:13 | XMS_ITS | Encounter Summary ---
Author Organization [facility] Address [address] [place] [address] Care Team Providers Care Communications Engineering Technician Name Role Phone Zhao Harris MD Primary Care Provider [phone] Encounter Details Date Type Department Care Team (Late st Contact Info) Description 10/15/2024 Lab Requisition PAV H Lab [address] [place] [address] Virgen Vargas MD 800 [facility] [address] [place] [phone] Abnormal finding of blood chemistry, unspecified Social [...] Appointment PAV A Interventional Radiology [address] [place] [phone] 02/10/2025 8:30 AM EDT Clinical Support PAV CC Hematology/BMT and Cellular Therapy Program [address] [address] 02/10/2025 9:00 AM EDT Office Visit PAV CC Hematology/BMT and Cellular Therapy Program [address] [address] Elaina Boss, PA 800 [facility] [address] [place] [phone] 02/10/2025 10:30 AM EDT Appointment [facility] 1 [address] [place] [address] 02/11/2025 2:00 PM EDT Appointment [facility] 1 [address] [place] [address] 02/12/2025 2:00 PM EDT Appointment [facility] 1 [address] [place] [address] 02/13/2025 2:00 PM EDT Appointment [facility] 1 [address] [place] [address] 02/14/2025 2:00 PM EDT Appointment [facility] 1 [address] [place] [address] 03/10/2025 8:30 AM EDT Clinical Support PAV CC Hematology/BMT and Cellular Therapy Program [address] [place] [address] 03/10/2025 9:00 AM EDT Office Visit PAV Hematology/BMT and Cellular Therapy Program [address] [place] [address] Isaura Wynn, ESTRELLA 800 [facility] Cancer [address] [phone] 03/10/2025 11:20 AM EDT Office Visit Pav CC Head, Neck & Respiratory [address], 2nd [place] [address] Elsa Razo, TUCKING MACHINE OPERATOR [address] [place] [address] documented as of this encounter Procedures Procedure Name Priority Date/Time Associated Diagnosis Comments BONE MARROW EXAM CONSULT Routine 10/15/2024 1:27 PM EDT Abnormal finding of blood chemistry, unspecified documented in this encounter Results * Bone marrow exam consult (10/15/2024 1:27 PM EDT) Case Report Bone Marrow Case: [id number] Authorizing Provider: Virgen Vargas MD Collected: 10/15/2024 1327 Ordering Location: [facility] Lab Received: 10/15/2024 1327 Pathologist: Martha Lopez MD Specimen: Bone Marrow Aspirate, [id number] 10/16/2024 2:02 PM EDT [facility] Final Diagnosis A. 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 10/16/2024 2:02 PM EDT [facility] at 1402 EDT Comment Findings are those of MDS with increased blasts type 2 (MDS-IB-2) in the WHO 5th edition and MDS/AML in the International Consensus Classification. 10/16/2024 2:02 PM EDT [facility] Clinical Information R79.9 - Abnormal finding of blood chemistry, unspecified [ICD-10-CM] 10/16/2024 2:02 PM EDT [facility] CBC and Differential PERIPHERAL [...] Granulocytes % 0 10/16/2024 2:02 PM EDT [facility] Bone Marrow Differential BONE MARROW DIFFERENTIAL: 200 cells Normal Patient Neutrophils 15-50 22 Metamyelocytes 4-19 3 Myelocytes 1-18 11 Promyelocytes 1-8 1 Blasts 0-2 13 Monocytes 0-5 4 Erythroid 16-38 41 Lymphocytes 3-24 4 Eosinophils 0-6 1 Basophils 0-2 0 Plasma cells 0-4 0 Other 10/16/2024 2:02 PM EDT [facility] Bone Marrow Aspirate and [...] trabeculae are unremarkable. 10/16/2024 2:02 PM EDT [facility] Flow Cytometry Interpretation Outside flow cytometry showed 17% myeloblasts expressing CD34, CD117, partial CD 38, partial CD7, HLA-DR, CD13 and variable CD33. 10/16/2024 2:02 PM EDT [facility] CYTOGENETICS/MOL ECULAR INTERPRETATION Cytogenetic analysis showed normal male karyotype. No FLT3 duplication or mutation was identified, and no NPM1 mutation was identified. 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 10/16/2024 2:02 PM EDT [facility] Gross Description A. [id number] Received along with a corresponding pathology report from [facility] are 12 slides labeled outside case: [id number] collected on 09/19/2024. 10/16/2024 2:02 PM EDT [facility] Bone Marrow Specimen from bone marrow obtained by aspiration / Unknown 10/15/2024 1:27 PM EDT 10/15/2024 1:27 PM EDT us Virgen Vargas MD LAB PATHOLOGY ORDERABLES Terri lara Result [facility] [address] [place] [address] documented in this encounter Visit Diagnoses Diagnosis [...] documented as of this encounter Care Teams Communications Engineering Technician Relationship Specialty Start Date End Date Zhao Harris MD [address] [place] [address] PCP - General 12/03/20 documented as of this encounter
--- OUTSIDE RECORDS SUMMARY | 2025-01-27 08:13 | XMS_ITS | Encounter Summary ---
Author Organization [facility] Address [address] [place] [address] Care Team Providers Care Weigher Alloy Name Role Phone Zhao Harris MD Primary Care Provider [phone] Encounter Details Date Type Department Care Team ([facility] st Contact Info) Description 01/22/2025 Telephone PAV CC Hematology/BMT and Cellular Therapy Program [address] [address] Virgen Vargas MD 800 [facility] [address] [place] [address] Social History Tobacco Use Types Packs/Day Years [...] drink first t maanv in the morning (EYE-ITALIAN LECTURER) to steady your nerves or to get [...] - 01/22/2025 3:50 PM EDT Callback number: [phone] [facility] calling to obtain patient's insurance information documented in this encounter Plan of Treatment Upcoming Encounters Date Type Department Care Team ([facility] Contact Info) Description 02/02/2025 11:00 AM EDT Appointment PAV A Interventional Radiology [address] [place] [address] 02/10/2025 8:30 AM EDT Clinical Support PAV Hematology/BMT and Cellular Therapy Program [address] [address] 02/10/2025 9:00 AM EDT Office Visit PAV Hematology/BMT and Cellular Therapy Program [address] [phone] Elaina Boss PA 800 [facility] [address] [place] [address] 02/10/2025 10:30 AM EDT Appointment [facility]fusion [facility] 1 [address] [place] [address] 02/11/2025 2:00 PM EDT Appointment [facility] 1 [address] [place] [address] 02/12/2025 2:00 PM EDT Appointment [facility] 1 [address] [place] [address] 02/13/2025 2:00 PM EDT Appointment [facility] 1 [address] [place] [address] 02/14/2025 2:00 PM EDT Appointment [facility] 1 [address] [place] [address] 03/10/2025 8:30 AM EDT Clinical Support PAV CC Hematology/BMT and Cellular Therapy Program [address] [place] [phone] 03/10/2025 9:00 AM EDT Office Visit PAV Hematology/BMT and Cellular Therapy Program [address] [address] Isaura Wynn, TV HOST 800 [facility] Cancer [address] [address] 03/10/2025 11:20 AM EDT Office Visit Pav CC Head, Neck & Respiratory 800 [facility], 2nd [place] [address] Elsa Razo, TV HOST [address] [place] [address] documented as of this encounter Visit Diagnoses [...] documented as of this encounter Care Teams Weigher Alloy Relationship Specialty Start Date End Date Zhao Harris MD [address] [facility] [address] [place] [address] PCP - General 12/03/20 documented as of this encounter
--- OUTSIDE RECORDS SUMMARY | 2025-01-27 08:13 | XMS_ITS | Encounter Summary ---
Author Organization [facility] Address [address] [place] [address] Care Team Providers Care Silhouette Artist Name Role Phone Zhao Harris MD Primary Care Provider [phone] Encounter Details Date Type Department Care Team [...] drink first t manav in the morning (EYE-BANQUET DIRECTOR) to steady your nerves or to [...] Encounters Date Type Department Care Team ([facility] Contact Info) Description 02/02/2025 11:00 AM EDT Appointment PAV A Interventional Radiology [address] [place] [address] 02/10/2025 8:30 AM EDT Clinical Support PAV CC Hematology/BMT and Cellular Therapy Program [address] [place] [address] [place] [address] 02/10/2025 9:00 AM EDT Office Visit PAV CC Hematology/BMT and Cellular Therapy Program [address] [place] [phone] Elaina Boss, PA 800 [facility] [address] [place] [phone] 02/10/2025 10:30 AM EDT Appointment [facility] Infusion [facility] 1 [address] [place] [address] 02/11/2025 2:00 PM EDT Appointment [facility] Infusion [facility] 1 [address] [place] [address] 02/12/2025 2:00 PM EDT Appointment [facility] Infusion [facility] 1 [address] [place] [address] 02/13/2025 2:00 PM EDT Appointment [facility] Infusion [facility] 1 [address] [place] [address] 02/14/2025 2:00 PM EDT Appointment [facility] Infusion [facility] 1 4 [place] [address] 03/10/2025 8:30 AM EDT Clinical Support PAV CC Hematology/BMT and Cellular Therapy Program [address] [place] [address] [place] [address] 03/10/2025 9:00 AM EDT Office Visit PAV CC Hematology/BMT and Cellular Therapy Program [address] [place] [address] [place] [phone] Isaura Wynn, RECREATIONAL DIRECTOR 800 [facility] [address] [place] [address] 03/10/2025 11:20 AM EDT Office Visit Pav CC Head, Neck & Respiratory 800 [facility], 2nd [place] [address] Elsa Razo, RECREATIONAL DIRECTOR [address] [place] [phone] documented as of this encounter Visit Diagnoses [...] documented as of this encounter Care Teams Silhouette Artist Relationship Specialty Start Date End Date Zhao Harris MD 1210 [facility] [address] [place] [address] PCP - General 12/03/20 documented as of this encounter
--- OUTSIDE RECORDS SUMMARY | 2025-01-27 08:13 | XMS_ITS | Encounter Summary ---
Author Organization [facility] Address [address] [place] [address] Care Team Providers Care Motor Pool Driver Name Role Phone Zhao Harris MD Primary Care Provider [phone] Reason for Visit * Reason Comments Med Refill Encounter Details Date Type Department Care Team ([facility] Contact Info) Description 02/20/2022 Refill [facility] [place] [address] [facility], [address] [place] [address] Regina Hill, ARAM [address] [place] [address] Social History Tobacco Use Types [...] [facility] Contact Info) Description 02/02/2025 11:00 AM EDT Appointment PAV A Interventional Radiology [address] [place] [phone] 02/10/2025 8:30 AM EDT Clinical Support PAV CC Hematology/BMT and Cellular Therapy Program [address] [place] [address] 02/10/2025 9:00 AM EDT Office Visit PAV CC Hematology/BMT and Cellular Therapy Program [address] [place] [address] Elaina Boss, PA 800 [facility] Cancer [address] [phone] 02/10/2025 10:30 AM EDT Appointment [facility] Infusion [facility] 1 [address] [place] [address] 02/11/2025 2:00 PM EDT Appointment [facility] Infusion [facility] 1 [address] [place] [address] 02/12/2025 2:00 PM EDT Appointment [facility]fusion [facility] 1 [address] [place] [address] 02/13/2025 2:00 PM EDT Appointment [facility] Infusion [facility] 1 [address] [place] [address] 02/14/2025 2:00 PM EDT Appointment [facility]fusion [facility] 1 [address] [place] [address] 03/10/2025 8:30 AM EDT Clinical Support PAV CC Hematology/BMT and Cellular Therapy Program [address] [phone] 03/10/2025 9:00 AM EDT Office Visit PAV CC Hematology/BMT and Cellular Therapy Program [address] [phone] Isaura Wynn, MAGNET VALVE ASSEMBLER 800 [facility] Cancer [address] [phone] 03/10/2025 11:20 AM EDT Office Visit Pav CC Head, Neck & Respiratory 800 [facility], 2nd [place] [address] Elsa Razo, MAGNET VALVE ASSEMBLER [address] [place] [phone] documented as of this encounter Visit Diagnoses Not on filedocumented in this encounter Additional Health Concerns Infection Onset Date Last Indicated Resolved Time Respiratory Rule-Out 11/03/2024 11/03/2024 025 5:17 PM EDT documented as of this encounter Care Teams Motor Pool Driver Relationship Specialty Start Date End Date Zhao Harris MD [address] [place] [address] PCP - General 12/03/20 documented as of this encounter
--- OUTSIDE RECORDS SUMMARY | 2025-01-27 08:13 | XMS_ITS | Encounter Summary ---
Author Organization [facility] Address [address] [place] [address] Care Team Providers Care Timber Robber Name Role Phone Zhao Harris MD Primary Care Provider [phone] Reason for Visit * Reason Onset Date Comments Distress Screen Follow-up 11/25/2024 Encounter Details Date Type Department Care Team (Late st Contact Info) Description 11/25/2024 Telephone PAV CC Hematology/BMT and Cellular Therapy Program [address] [place] [address] [place] [address] Michelle Mast Distress Screen Follow-up Social History [...] drink first t manav in the morning (EYE-MARINE EQUIPMENT SALES ENGINEER) to steady your nerves [...] Appointment PAV A Interventional Radiology [address] [place] [address] 02/10/2025 8:30 AM EDT Clinical Support PAV Hematology/BMT and Cellular Therapy Program [address] [place] [address] 02/10/2025 9:00 AM EDT Office Visit PAV Hematology/BMT and Cellular Therapy Program [address] [address] Elaina Boss PA 800 [facility] [address] [place] [address] 02/10/2025 10:30 AM EDT Appointment [facility] Infusion [facility] 1 [address] [place] [address] 02/11/2025 2:00 PM EDT Appointment [facility] Infusion [facility] 1 [address] [place] [address] 02/12/2025 2:00 PM EDT Appointment [facility] Infusion [facility] 1 [address] [place] [address] 02/13/2025 2:00 PM EDT Appointment [facility] Infusion [facility] 1 [address] [place] [address] 02/14/2025 2:00 PM EDT Appointment [facility] Infusion [facility] 1 [address] [place] [address] 03/10/2025 8:30 AM EDT Clinical Support PAV CC Hematology/BMT and Cellular Therapy Program [address] [address] 03/10/2025 9:00 AM EDT Office Visit PAV CC Hematology/BMT and Cellular Therapy Program [address] [address] Isaura Wynn, CAVITY PUMP OPERATOR 800 [facility] [address] [place] [phone] 03/10/2025 11:20 AM EDT Office Visit Pav CC Head, Neck & Respiratory 800 [facility], 2nd [place] [address] Elsa Razo, CAVITY PUMP OPERATOR [address] [place] [phone] documented as of this encounter Visit Diagnoses [...] documented as of this encounter Care Teams Timber Robber Relationship Specialty Start Date End Date Zhao Harris MD 1210 [facility] [address] [place] [address] PCP - General 12/03/20 documented as of this encounter
[2025-01-27] MEDS: SODIUM CHLORIDE 0.9% 10ML FLUSH SYRINGE 10 ML IV (08:30)
[2025-01-27] MEDS: 0.9 % SODIUM CHLORIDE 250 ML 999 ML IV (08:30)
== END 2025-01-27 11:10 | disposition home or self-care (01) ==
LOC: INF 08:07
PROVIDERS: PCP Family Medicine; Visit Provider Internal Medicine Medical Oncology
DX: D46.9 Myelodysplastic syndrome, unspecified (principal)
CPT/HCPCS: 36430; J1642; J7050; P9016

== ENCOUNTER 2025-01-29 08:16 | Outpatient (CLI) | payer MEDICARE, SELFPAY ==
--- OUTSIDE RECORDS SUMMARY | 2024-12-01 08:41 | XMS_ITS | Encounter Summary ---
Author Organization [facility] Address [address] [place] [address] Care Team Providers Care [employer] Name Role Phone Zhao Harris MD Primary Care Provider [phone] Reason for Referral * Consultation (Routine) - Closed Specialty Diagnoses / Procedures Referred By Contact Referred To Contact Interventional Radiology Diagnoses Myelodysplasia (myelodysplastic syndrome) (CMS/HCC) Mckinley Lee MD [address] [place] [address] Phone: tel:[phone] fax: [facility] Vascular Interventional Radiology [address] [place] [address] Phone: tel: Referral ID Status Reason Start Date Expiration Date V isits Requested Visits Authorized [id number] Closed Specialty Services Required 12/01/2024 06/02/2026 1 1 * Imaging (Routine) - Closed Specialty Diagnoses / Procedures Referred By Justice mcgee Referred To Contact Radiology Diagnoses Myelodysplasia (myelodysplastic syndrome) (CMS/HCC) Procedures IR Port Placement 5+ Years Consult to Interventional Radiology Isaura Wynn APRN [address] [facility] [address] [place] [address] Phone: tel: fax: Referral ID Status Reason Start Date Expiration Date Visits Re quested Visits Authorized [id number] Closed 11/18/2024 05/20/2026 1 1 Reason for Visit * Imaging (Routine) - Closed Specialty Diagnoses / Procedures Referred By Justice mcgee Referred To Contact Radiology Diagnoses Myelodysplasia (myelodysplastic syndrome) (CMS/HCC) Procedures IR Port Placement 5+ Years Consult to Interventional Radiology Isaura Wynn APRN [address] [facility] [address] [place] [address] Phone: tel: fax: Referral ID Status Reason Start Date Expiration Date Visits Re quested Visits Authorized [id number] Closed 11/18/2024 05/20/2026 1 1 Encounter Details Date Type Department Care Team (Latest Contact Info) Description 12/01/2024 8:41 AM EDT - 12/01/2024 11:59 PM EDT Hospital Encounter [facility] Interventional Radiology [address] [place] [address] Gela Singer Thrombocytopenia (CMS/HCC) (Primary Dx); Myelodysplasia [...] drink first t manav in the morning (EYE-ACCESS CONTROL SPECIALIST) to steady your nerves or to [...] call: Vascular & Interventional Radiology Clinic at [phone] Sunday - Sunday 8:00 AM to 4:30 PM After hours, weekends, and holidays please call [phone] and ask for the Interventional Radiology provider/Resident on-call For Emergencies please go to the nearest Emergency Room or dial 911. Intervention Radiology Appointments: If you need to reschedule a procedure, please call our Schedulers at [phone], option 4. If you need to schedule or reschedule a clinic appointment, please call [phone]. [facility] Vascular and Interventional Radiology Clinic [facility] [address] [place] [address] documented in this encounter Medications at Time of Discharge acyclovir (Zovirax) 800 MG tabletIndications :Myelodysplasia (myelodysplastic syndrome) (CMS/HCC) Take 1 tablet (800 mg) by mouth in the morning and 1 tablet (800 mg) before bedtime. 60 tablet 3 10/14/2024 bisoprolol (Zebeta) 5 MG tabletIndications :Coronary artery disease involving [place] heart with angina pectoris, unspecified vessel or lesion type (CMS/HCC),Hyperte nsion, unspecified type Take 1 tablet (5 mg) by mouth daily. 90 tablet 3 09/11/2024 HYDROcodone-aceta minophen ([place]) 5-325 MG tablet Take 1 tablet by mouth every 6 hours as needed. 11/07/2024 hydrocortisone 2.5 % cream Apply 1 Application topically as needed for rash. 20 g 12/09/2024 levoFLOXacin (Levaquin) 500 MG tabletIndications :Myelodysplasia (myelodysplastic syndrome) (CMS/HCC) Take 1 tablet (500 mg) by mouth daily. 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 Call the [facility] Hematology Program Clinic if this is not set up. ?? What is used to flush it? It will be flushed with NS and Heparin flush. ?? Where will this happen? Either home health will come to you or you will go to the Infusion Center or the [facility] Clinic. Here is some contact information about [...] Radiology Brief Postprocedure Note Attending: Dr. Lee Weight Analyst: Dr. Hernandez Pre-operative Diagnosis: AML, need for [...] been discussed with the patient and/or their plastic products sales representative. All questions answered and they agree [...] daily., Disp: 90 tablet, Rfl: 3 HYDROcodone-acetaminophen ([place]) 5-325 MG tablet, Take 1 tablet by [...] Upcoming Encounters Date Type Department Care Team ([facility] st Contact Info) Description 02/02/2025 11:00 AM EDT Appointment [facility] Interventional Radiology [address] [place] [address] 02/10/2025 8:30 AM EDT Clinical Support [facility] Hematology/BMT and Cellular Therapy Program [address] [address] 02/10/2025 9:00 AM EDT Office Visit [facility] Hematology/BMT and Cellular Therapy Program [address] [place] [phone] Elaina Boss, ARAM [address] [facility] [address] [address] 02/10/2025 10:30 AM EDT Appointment [facility] Infusion [facility] 1 [address] [place] [address] 02/11/2025 2:00 PM EDT Appointment [facility] 1 [address] [place] [address] 02/12/2025 2:00 PM EDT Appointment [facility] 1 [address] [place] [address] 02/13/2025 2:00 PM EDT Appointment [facility] 1 [address] [place] [address] 02/14/2025 2:00 PM EDT Appointment [facility] 1 [address] [place] [address] 03/10/2025 8:30 AM EDT Clinical Support [facility] Hematology/BMT and Cellular Therapy Program [address] [facility] [place] [address] 03/10/2025 9:00 AM EDT Office Visit [facility] Hematology/BMT and Cellular Therapy Program [address] [facility] [place] [address] Isaura Wynn, [employer] COMPANY DRIVER [address] [facility] [address] [place] [address] 03/10/2025 11:20 AM EDT Office Visit [facility] Head[facility] Neck [facility] Respiratory [address] [facility], 2nd [place] [address] Elsa Razo, [employer] COMPANY DRIVER [address] [place] [phone] Scheduled Referrals Name Type Priority Associated Diagnoses Order Schedule Discharge Ambulatory referral to [facility] Outpatient Referral Routine Myelodysplasia (myelodysplastic syndrome) [...] for port placement. New AML, starting chemotherapy. Baseball Glove Stuffer: Mckinley Lee MD Secondary Guard Chief: Dr. David Holt Rad Dose: 6 mGy [...] was placed supine on the fluoro table. Lead Housekeeper ultrasonography revealed the vein to be compressible [...] with no evidence of complication. Device: 6 Hungarian port catheter cut to length of 25 cm. COMPARISON: None. FINDINGS: Patent R IJV COMPLICATION: No. Procedure Note Mckinley Lee MD - 12/02/2024 CLINICAL INDICATION: 69M here for port placement. New AML, starting chemotherapy. Baseball Glove Stuffer: Mckinley Lee MD Secondary Guard Chief: Dr. David Holt Rad Dose: 6 mGy [...] patient was placed supine on the fluoro table.Lead Housekeeper ultrasonography revealed the vein to be compressible [...] well with no evidence ofcomplication. Device: 6 [place] port catheter cut to length of 25 [...] MD on 12/02/2024 7:02 AM Isaura Wynn OTR COMPANY DRIVER IMG IR PROCEDURES Final Result * Transfuse [...] ORDERAB LES Final Result BLOOD BANK [address] [place] [address], * (ABNORMAL) WBC Differential (12/01/2024 9:39 AM EDT) Differential Type Automated LAB HEMATOLOGY METHOD 12/01/2024 11:33 AM EDT [facility] Neutrophils % 9 % LAB HEMATOLOGY METHOD 12/01/2024 11:33 AM EDT [facility] Lymphocytes % 84 % LAB HEMATOLOGY METHOD 12/01/2024 11:33 AM EDT [facility] Monocytes % 6 % LAB HEMATOLOGY METHOD 12/01/2024 11:33 AM EDT [facility] Eosinophils % 1 % LAB HEMATOLOGY METHOD 12/01/2024 11:33 AM EDT [facility] Basophils % 0 % LAB HEMATOLOGY METHOD 12/01/2024 11:33 AM EDT [facility] Immature Granulocytes % 0 % LAB HEMATOLOGY METHOD 12/01/2024 11:33 AM EDT [facility] Immature Granulocytes Absolute 0.00 0.00 - 0.06 10*3/uL LAB HEMATOLOGY METHOD 12/01/2024 11:33 AM EDT [facility] Neutrophils Absolute 0.06(LL) 1.60 - 6.10 10*3/uL LAB HEMATOLOGY METHOD 12/01/2024 11:33 AM EDT [facility] Lymphocytes Absolute 0.59(L) 1.20 - 3.90 10*3/uL LAB HEMATOLOGY METHOD 12/01/2024 11:33 AM EDT [facility] Monocytes Absolute 0.04(L) 0.30 - 0.90 10*3/uL LAB HEMATOLOGY METHOD 12/01/2024 11:33 AM EDT [facility] Basophils Absolute 0.00 0.00 - 0.10 10*3/uL LAB HEMATOLOGY METHOD 12/01/2024 11:33 AM EDT [facility] Eosinophils Absolute 0.01 0.00 - 0.50 10*3/uL LAB HEMATOLOGY METHOD 12/01/2024 11:33 AM EDT [facility] Blood Venous blood specimen / Unknown Venipuncture / Unknown 12/01/2024 9:39 AM EDT 12/01/2024 9:56 AM EDT us Virgen Vargas MD LAB BLOOD ORDERABLES Final Re sult [facility] [address] [place] [address] * (ABNORMAL) CBC (12/01/2024 9:39 AM EDT) WBC Count 0.64(LL) 3.70 - 10.30 10*3/uL LAB HEMATOLOGY METHOD 12/01/2024 4:21 PM EDT [facility] RBC Count 2.29(L) 4.60 - 6.10 10*6/uL LAB HEMATOLOGY METHOD 12/01/2024 4:21 PM EDT [facility] HGB 7.6(L) 13.7 - 17.5 g/dL LAB HEMATOLOGY METHOD 12/01/2024 4:21 PM EDT [facility] HCT 20.9(L) 40.0 - 51.0 % LAB HEMATOLOGY METHOD 12/01/2024 4:21 PM EDT [facility] Platelet Count 14(LL) 155 - 369 10*3/uL LAB HEMATOLOGY METHOD 12/01/2024 4:21 PM EDT [facility] MCV 91 79 - 98 fL LAB HEMATOLOGY METHOD 12/01/2024 4:21 PM EDT [facility] MCH 33.2(H) 26.0 - 32.0 pg LAB HEMATOLOGY METHOD 12/01/2024 4:21 PM EDT [facility] MCHC 36.4(H) 30.7 - 35.5 g/dL LAB HEMATOLOGY METHOD 12/01/2024 4:21 PM EDT [facility] RDW 17.7(H) 11.5 - 14.5 % LAB HEMATOLOGY METHOD 12/01/2024 4:21 PM EDT [facility] MPV LAB HEMATOLOGY METHOD 12/01/2024 4:21 PM EDT [facility] Comment:Not Measured nRBC 0.0 <=0.0 per 100 WBCs LAB HEMATOLOGY METHOD 12/01/2024 4:21 PM EDT [facility] Blood Venous blood specimen / Unknown Venipuncture / Unknown 12/01/2024 9:39 AM EDT 12/01/2024 9:56 AM EDT Mckinley Lee MD LAB BLOOD ORDERABLES Final R esult Performing Organization Address City/[facility]/ZIP Co de Phone Number [facility] [address] [place] [address] * Prepare Leukocyte Reduced Platelets: 1 Units, Irradiated (12/01/2024 8:52 AM EDT) [facility] Product Code [id number] BLOO D BANK Dispense Status Transfused BLOOD BANK Blood Expiration Date [id number] BLOOD BANK Unit Number [id number] B LOOD BANK Product Blood Type 6200 BLOOD BANK Blood Type A+ BLOOD BANK Blood Venous blood specimen / Unknown Mckinley Lee MD BLOOD BANK PRODUCT ORDERABLE S Final Result Performing Organization Address City/[facility] Co de Phone Number BLOOD BANK [address] documented in this encounter Visit Diagnoses [...] mL Right Neck lidocaine-EPINEPHrine (Xylocaine W/EPI) 1 %-1:[id number] injection As needed, Starting on Sun12/01/24 at [...] as of this encounter Care Teams [employer]p Marketing Services And Skin Relationship Specialty Start Date End Date Zhao Harris MD [address] [place] [address] [place] [address] PCP - General 12/03/20 documented as of this encounter
--- OUTSIDE RECORDS SUMMARY | 2024-12-09 08:30 | XMS_ITS | Encounter Summary ---
Author Organization [facility] Address [address] [place] [address] Care Team Providers Care Hot Box Operator Name Role Phone Zhao Harris MD Primary Care Provider [phone] Reason for Visit * Reason Comments Labs Nurse Visit Encounter Details Date Type Department Care Team ([facility] Contact Info) Description 12/09/2024 8:30 AM EDT Clinical Support PAV CC Hematology/BMT and Cellular Therapy Program [address] [place] [address] [place] [address] Social History Tobacco Use Types Packs/Day Years [...] drink first t manav in the morning (EYE-PERSONAL SECURITY SPECIALIST) to steady your nerves or to [...] Upcoming Encounters Date Type Department Care Team ([facility] st Contact Info) Description 02/02/2025 11:00 AM EDT Appointment PAV A Interventional Radiology [address] [place] [address] 02/10/2025 8:30 AM EDT Clinical Support PAV CC Hematology/BMT and Cellular Therapy Program [address] [address] 02/10/2025 9:00 AM EDT Office Visit PAV Hematology/BMT and Cellular Therapy Program [address] [address] Elaina Boss, PA 800 [facility] [address] [place] [address] 02/10/2025 10:30 AM EDT Appointment P[facility] Infusion Clinic 1 744 [place] [address] 02/11/2025 2:00 PM EDT Appointment [facility] Infusion [facility] 1 744 [place] [address] 02/12/2025 2:00 PM EDT Appointment [facility] Infusion [facility] 1 [address] [place] [address] 02/13/2025 2:00 PM EDT Appointment [facility] Infusion Clinic 1 [address] [place] [address] 02/14/2025 2:00 PM EDT Appointment [facility] Infusion [facility] 1 [address] [place] [address] 03/10/2025 8:30 AM EDT Clinical Support PAV CC Hematology/BMT and Cellular Therapy Program [address] [place] [place] [phone] 03/10/2025 9:00 AM EDT Office Visit PAV CC Hematology/BMT and Cellular Therapy Program 750 [facility] [place] [phone] Isaura Wynn, CLINICAL QUALITY RN 800 [facility] [address] [place] [address] 03/10/2025 11:20 AM EDT Office Visit Pav CC Head, Neck & Respiratory 800 [facility], 2nd [place] [phone] Elsa Razo, CLINICAL QUALITY RN 800 [place] [phone] documented as of this encounter Visit Diagnoses [...] as of this encounter Care Teams Hot Box Operator Relationship Specialty Start Date End Date Zhao Harris MD [address] [place] [address] PCP - General 12/03/20 documented as of this encounter
--- OUTSIDE RECORDS SUMMARY | 2024-12-09 09:00 | XMS_ITS | Encounter Summary ---
Author Organization [facility] Address [address] [place] [address] Care Team Providers Care Perfumer Name Role Phone Zhao Harris MD Primary Care Provider + [phone] Reason for Visit * Reason Comments Procedure * Genetic Testing (Routine) - Authorized Specialty Diagnoses / Procedures Referred By Justice mcgee Referred To Contact Lab Diagnoses Myelodysplasia (myelodysplastic syndrome) (CMS/HCC) Procedures Leukemia/Lymphoma - Immunophenotyping by Flow Cytometry Virgen Vargas MD 800 [facility] [address] [address] Phone: tel: fax: Referral ID Status Reason Start Date Expiration Date V isits Requested Visits Authorized [id number] Authorized 11/18/2024 05/20/2026 1 1 Encounter Details Date Type Department Care Team (Latest Contact Info) Description 12/09/2024 9:00 AM EDT Procedure Visit [facility] Hematology/BMT and Cellular Therapy Program [address] [place] [address] Kierra Novak APRN 800 [facility] Cancer [address] [address] Myelodysplasia (myelodysplastic syndrome) (CMS/HCC) Social [...] drink first t manav in the morning (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 REPAIRER) to steady your nerves or to get [...] yes Risks discussed: Bleeding, infection and pain [place] protocol: Procedure explained and questions answered to [...] Upcoming Encounters Date Type Department Care Team ([facility] Contact Info) Description 02/02/2025 11:00 AM EDT Appointment [facility] Inter[facility] Radiology [address] [place] [address] 02/10/2025 8:30 AM EDT Clinical Support [facility] Hematology/BMT and Cellular Therapy Program [address] [phone] 02/10/2025 9:00 AM EDT Office Visit [facility] Hematology/BMT and Cellular Therapy Program [address] [phone] Elaina Boss PA 800 [facility] [address] [place] [phone] 02/10/2025 10:30 AM EDT Appointment [facility] [address] [place] [address] 02/11/2025 2:00 PM EDT Appointment [facility] 1 [address] [place] [address] 02/12/2025 2:00 PM EDT Appointment [facility] [address] [place] [address] 02/13/2025 2:00 PM EDT Appointment [facility] [address] [place] [address] 02/14/2025 2:00 PM EDT Appointment [facility] [address] [place] [address] 03/10/2025 8:30 AM EDT Clinical Support [facility] Hematology/BMT and Cellular Therapy Program [address] [place] [phone] 03/10/2025 9:00 AM EDT Office Visit [facility] Hematology/BMT and Cellular Therapy Program [address] [phone] Isaura Wynn, SHELTERED WORKSHOP EXECUTIVE DIRECTOR 800 [facility] [address] [place] [phone] 03/10/2025 11:20 AM EDT Office Visit [facility] Head, Neck & Respiratory 800 [facility] 2nd [place] [address] Elsa Razo, SHELTERED WORKSHOP EXECUTIVE DIRECTOR [address] [place] [address] documented as of this encounter Procedures Procedure Name Priority Date/Time Associated Diagnosis Comments CYTOGENETICS TESTING, ONCOLOGY Routine 12/09/2024 10:15 AM EDT Myelodysplasia (myelodysplastic syndrome) ([facility]/HCC) CHROMOSOME KARYOTYPE, ONCOLOGY Routine 12/09/2024 10:15 AM EDT Myelodysplasia (myelodysplastic syndrome) ([facility]/HCC) LEUKEMIA/LYMPHOMA - IMMUNOPHENOTYPING BY FLOW CYTOMETRY Routine [...] Type Bone Marrow 12/16/2024 5:59 PM EDT [facility] Clinical Indication Acute Myeloid Leukemia 12/16/2024 5:59 PM EDT [facility] Specimen Adequacy Adequate 025 5:59 PM EDT [facility] Chromosome Analysis Result Giemsa-banded metaphase cells from unstimulated bone marrow cultures showed the following chromosome pattern: 43~45,X,-Y,t(4;1 4)(q21;q32),add( 5)(q13),add(16)( q11.2),-17,add(2 0)(q11.2)[cp13]/ 46,XY[7] 12/16/2024 5:59 PM EDT [facility] Interpretation Abnormal male chromosome [...] were observed on this patient's previous specimen [id number] and indicate persistent disease. Clinical correlation is recommended. Note: Per [employer] (CAP) requirement additional karyotypes were performed and charged due to the presence of clonal abnormalities. # cells counted = 20 # cells analyzed = 20 # cells karyotyped = 3 Band resolution: 400 12/16/2024 5:59 PM EDT [facility] Pathologist Signature Reviewed by: Mesfin Rae 12/16/2024 5:59 PM EDT [facility] Bone Marrow Non-blood Collection / Unknown 12/09/2024 10:15 AM EDT 12/09/2024 12:48 PM EDT us Virgen Vargas MD LAB CYTOGENETICS ORDERABLES F inal Result [facility] [address] [place] [address] * Leukemia/Lymphoma - Immunophenotyping by Flow Cytometry (12/09/2024 10:15 AM EDT) Clinical Indication AML 12/10/2024 8:[address] [facility] Flow Cytometry Interpretation APPROXIMATELY 23% POPULATION OF CD34 POSITIVE MYELOID BLASTS EXPRESSING CD34, CD117, CD13, CD33, HLA-DR, PARTIAL CD7, VARIABLE CD123, PARTIAL CD38, AND MODERATE CD45, SEE COMMENT, BONE MARROW ASPIRATE. 12/10/2024 8:51 AM EDT [facility] Comments Specimen viability is [...] light chains, CD123 12/10/2024 8:[address] [facility] Disclaimer This test was developed and its performance characteristics determined by the Immuno-Molecular Pathology Laboratory at the [facility]. It has not been cleared [...] on the report. 12/10/2024 8:51 AM EDT [facility] Pathologist Signature Reviewed by: Gerry Jensen MD 12/10/2024 8:51 AM EDT [facility] MRD Indicated Test Not Indicated 8:51 AM EDT [facility] Bone Marrow Specimen from bone marrow obtained by aspiration / Unknown Non-blood Collection / Unknown 12/09/2024 10:15 AM EDT 12/09/2024 11:28 AM EDT us Virgen Vargas MD LAB FLOW CYTOMETRY ORDERABLES Final Result [facility] [address] [place] [address] * Bone marrow exam (12/09/2024 10:15 AM EDT) Case Report Bone Marrow Case: [id number] Authorizing Provider: Virgen Vargas MD Collected: 12/09/2024 1015 Ordering Location: [facility] Hematology/BMT and Received: 12/09/2024 1145 Cellular Therapy Program Pathologist: Gerry Jensen MD Specimens: A) - Bone Marrow Aspirate, right B) - Bone Marrow Biopsy, right C) - Peripheral Blood for Bone Marrow 12/19/2024 5:35 PM EDT [facility] Cytogenetics Report, Addendum Chromosome [...] were observed on this patient's previous specimen [id number] and indicate persistent disease. 12/19/2024 5:35 PM EDT [facility] Addendum electronically signed by Gerry Jensen MD on 12/19/2024 at 1735 EDT Final Diagnosis PERIPHERAL BLOOD AND BONE MARROW, RIGHT POSTERIOR ILIAC CREST, (PERIPHERAL SMEAR, ASPIRATE SMEAR, AND CORE BIOPSY): - NORMOCELLULAR BONE MARROW WITH ERYTHROID HYPERPLASIA, VIRTUALLY ABSENT MATURING GRANULOPOIESIS, AND 14% BLASTS, SEE COMMENT. 12/19/2024 5:35 PM EDT [facility] at 1706 EDT Comment While by flow cytometric analysis blasts constitute 23% of cellularity, the majority of bone marrow cellularity consists of erythroid precursors that are removed by flow cytometry. This leads to the discrepancy between the percentage of blasts by flow cytometry and morphologic examination. Nonetheless, the findings are consistent with some residual disease. 12/19/2024 5:35 PM EDT [facility] Clinical Information AML s/p cycle 2 12/19/2024 5:35 PM EDT [facility] CBC and Differential PERIPHERAL [...] Platelets are decreased. 12/19/2024 5:35 PM EDT [facility] Bone Marrow Differential BONE MARROW DIFFERENTIAL: 400 cells Normal Patient Neutrophils 15-50 0 Metamyelocytes 4-19 0 Myelocytes 1-18 1 Promyelocytes 1-8 0 Blasts 0-2 14 Monocytes 0-5 3 Erythroid 16-38 76 Lymphocytes 3-24 1 Eosinophils 0-6 0 Basophils 0-2 0 Plasma cells 0-4 5 Other 12/19/2024 5:35 PM EDT [facility] Aspirate Smear The bone [...] predominantly normal morphology. 12/19/2024 5:35 PM T [facility] Core Biopsy The core biopsy is small and shows 5 mm of a normocellular bone marrow with a cellularity of approximately 30% that is predominantly comprised of erythroid precursors. Erythropoiesis is left-shifted, but maturing. Maturing granulopoiesis is virtually absent. Myeloid cells almost entirely consists of immature precursors. Megakaryocytes are decreased and exhibit predominantly normal morphology. 12/19/2024 5:35 PM T [facility] Flow Cytometry Interpretation Flow cytometric analysis shows approximately 23% population of CD34 positive myeloid blasts expressing CD34, CD117, CD13, CD33, HLA-DR, partial CD7, variable CD123, partial CD38, and moderate CD45 ([id number]). 12/19/2024 5:35 PM EDT [facility] Gross Description B. RIGHT A single specimen is received in formalin labeled bone marrow biopsy right posterior iliac crest and consists of 1 piece(s) of red/white tissue measuring 0.7 cm in length 0.2 cm in diameter. The specimen is submitted in to Histology for decalcification and routine processing. Cold Time: <1m 12/19/2024 5:35 PM EDT [facility] Note: A resident was involved in the service. I attest I examined the relevant preparations for the specimens and confirmed the diagnosis or interpretation. 12/19/2024 5:35 PM EDT [facility] Bone Marrow Peripheral blood [...] PATHOLOGY ORDERABLES Edit ed Result - Final [facility] [address] [place] [address] * BIOPSY BONE MARROW (12/09/2024 10:00 AM EDT) Narrative Kierra Novak APRN - 12/09/2024 10:00 AM EDT Kierra Novak APRN 12/09/2024 12:08 PM Biopsy bone marrow Date/Time: 12/09/2024 10:00 AM Performed by: Kierra Novak APRN Authorized by: Kierra Novak APRN Consent: Consent obtained: Written Consent given by: Patient Risks, benefits, and alternatives were discussed: yes Risks discussed: Bleeding, infection and pain [place] protocol: Procedure explained and questions answered to [...] Tolerated well, no immediate complications Kierra Novak SHELTERED WORKSHOP EXECUTIVE DIRECTOR IN CLINIC/BEDSIDE ORDERAB LES Final Result * [...] ORDERABLE S Final Result Performing Organization Address [facility] Co de Phone Number BLOOD BANK [address] [place] [address] * Morphology (12/09/2024 8:45 AM EDT) Elliptocytes/ Ovalocytes Present LAB HEMATOLOGY METHOD 12/09/2024 11:45 AM EDT [facility] RBC Morphology Slide Reviewed LAB HEMATOLOGY METHOD 12/09/2024 11:45 AM EDT [facility] Platelet Estimate Platelet smear estimate consistent with automated count LAB HEMATOLOGY METHOD 12/09/2024 11:45 AM EDT [facility] Blood Venous blood specimen / Unknown Venipuncture / Unknown 12/09/2024 8:45 AM EDT 12/09/2024 8:56 AM EDT Virgen Vargas MD LAB BLOOD ORDERABLES Final Re sult [facility] [address] [place] [address], [place] [address] * (ABNORMAL) Manual Differential (12/09/2024 8:45 AM [...] LAB HEMATOLOGY METHOD 12/09/2024 11:45 AM EDT [facility] Eosinophils Absolute 0.00 0.00 - 0.50 10*3/uL LAB HEMATOLOGY METHOD 12/09/2024 11:45 AM EDT [facility] Basophils Absolute 0.00 0.00 - 0.10 10*3/uL LAB HEMATOLOGY METHOD 12/09/2024 11:45 AM EDT [facility] Blood Venous blood specimen / Unknown Venipuncture / Unknown 12/09/2024 8:45 AM EDT 12/09/2024 8:56 AM EDT Virgen Vargas MD LAB BLOOD ORDERABLES Final Re sult Performing Organization Address City/[facility]/ZIP Co de Phone Number [facility] [address] [place] [address] * Peripheral blood smear, pathologist interpretation (12/09/2024 8:45 AM EDT) Clinical Diagnosis, Peripheral Smear AML under therapy LAB HEMATOLOGY METHOD 12/09/2024 11:39 AM EDT [facility] Interpretation , Peripheral Smear Pancytopenia with rare circulating blast. A resident was involved in the service. I attest I examined the relevant preparations for the specimens and confirmed the diagnosis or interpretation. 12/09/2024 11:39 AM EDT [facility] Pathologist Signature, Peripheral Smear 12/09/2024 11:39 AM EDT [facility] Comment:Reviewed by: Martha Lopez MD LAB CP ASR DISCLAIMER Yes 12/09/2024 11:39 AM EDT [facility] Blood Venous blood specimen / Unknown Venipuncture / Unknown 12/09/2024 8:45 AM EDT 12/09/2024 8:56 AM EDT Virgen Vargas MD LAB PATHOLOGY ORDERABLES Terri l Result Performing Organization Address City/[facility]/ZIP Co de Phone Number [facility] [address] [place] [phone] * (ABNORMAL) Comprehensive metabolic panel (12/09/2024 8:45 AM EDT) Glucose, Plasma 103(H) 74 - 99 mg/dL 12/09/2024 9:33 AM EDT [facility] BUN, Plasma 9 8 - 23 mg/dL 12/09/2024 9:33 AM EDT [facility] Creatinine, Plasma 0.78 0.70 - 1.20 mg/dL 12/09/2024 9:33 AM EDT [facility] BUN/Creatinine Ratio 12 12/09/2024 9:33 AM EDT [facility] Sodium, Plasma 140 136 - 145 mmol/L 12/09/2024 9:33 AM EDT [facility] Potassium, Plasma 3.9 3.6 - 4.9 mmol/L 12/09/2024 9:33 AM EDT [facility] Chloride, Plasma 109(H) 97 - 107 mmol/L 12/09/2024 9:33 AM EDT [facility] CO2, Plasma 21(L) 22 - 29 mmol/L 12/09/2024 9:33 AM EDT [facility] Anion Gap 10 6 - 16 mmol/L 12/09/2024 9:33 AM EDT [facility] Total Calcium, Plasma 9.0 8.9 - 10.2 mg/dL 12/09/2024 9:33 AM EDT [facility] Total Protein 6.6 6.3 - 7.9 g/dL 12/09/2024 9:33 AM EDT [facility] Albumin, Plasma 3.9 3.5 - 5.2 g/dL 12/09/2024 9:33 AM EDT [facility] AST, Plasma 31 10 - 50 U/L 12/09/2024 9:33 AM EDT [facility] ALT, Plasma 37 10 - 50 U/L 12/09/2024 9:33 AM EDT [facility] Alkaline Phosphatase, Plasma 81 40 - 115 U/L 12/09/2024 9:33 AM EDT [facility] Total Bilirubin, Plasma 0.6 0.2 - 1.1 mg/dL 12/09/2024 9:33 AM EDT [facility] eGFRcr 96.5 mL/min/1.7 3m*2 12/09/2024 9:33 AM EDT [facility] Comment:Reported eGFRcr in m L/min/1.73m2 is based the CKD-EPI 2020 equation that does not use a race coefficient. Blood Venous blood specimen / Unknown Venipuncture / Unknown 12/09/2024 8:45 AM EDT 12/09/2024 9:01 AM EDT us Virgen Vargas MD LAB BLOOD ORDERABLES Final Re sult [facility] [address] [place] [address] * (ABNORMAL) CBC and differential (12/09/2024 8:45 AM EDT) WBC Count 0.68(LL) 3.70 - 10.30 10*3/uL LAB HEMATOLOGY METHOD 12/09/2024 11:45 AM EDT [facility] RBC Count 2.34(L) 4.60 - 6.10 10*6/uL LAB HEMATOLOGY METHOD 12/09/2024 11:45 AM EDT [facility] HGB 7.5(L) 13.7 - 17.5 g/dL LAB HEMATOLOGY METHOD 12/09/2024 11:45 AM EDT [facility] HCT 20.6(L) 40.0 - 51.0 % LAB HEMATOLOGY METHOD 12/09/2024 11:45 AM EDT [facility] Platelet Count 24(L) 155 - 369 10*3/uL LAB HEMATOLOGY METHOD 12/09/2024 11:45 AM EDT [facility] MCV 88 79 - 98 fL LAB HEMATOLOGY METHOD 12/09/2024 11:45 AM EDT [facility] MCH 32.1(H) 26.0 - 32.0 pg LAB HEMATOLOGY METHOD 12/09/2024 11:45 AM EDT [facility] MCHC 36.4(H) 30.7 - 35.5 g/dL LAB HEMATOLOGY METHOD 12/09/2024 11:45 AM EDT [facility] RDW 17.1(H) 11.5 - 14.5 % LAB HEMATOLOGY METHOD 12/09/2024 11:45 AM EDT [facility] MPV 9.2 8.8 - 12.5 [...] MD LAB BLOOD ORDERABLES Final Re sult [facility] [address] [place] [address] documented in this encounter Visit Diagnoses Diagnosis [...] documented as of this encounter Care Teams Perfumer Relationship Specialty Start Date End Date Zhao Harris MD [address] [place] [address] PCP - General 12/03/20 documented as of this encounter
--- OUTSIDE RECORDS SUMMARY | 2024-12-09 13:30 | XMS_ITS | Encounter Summary ---
Author Organization [facility] Address [address] [place] [address] Care Team Providers Care Risk Investigator Name Role Phone Zhao Harris MD Primary Care Provider [phone] Reason for Visit * Reason Comments Follow-up Encounter Details Date Type Department Care Team (Latest Contact Info) Description 12/09/2024 1:30 PM EDT Clinical Support [facility] 800 [facility], 2nd [place] [phone] Myelodysplasia (myelodysplastic syndrome) (CMS/HCC) (Primary Dx); Thrombocytopenia [...] drink first t manav in the morning (EYE-BAGGER MEAT) to steady your nerves or to get [...] Appointment PAV A Interventional Radiology [address] [place] [address] 02/10/2025 8:30 AM EDT Clinical Support P[facility] CC Hematology/BMT and Cellular Therapy Program [address] [place] [address] 02/10/2025 9:00 AM EDT Office Visit PAV Hematology/BMT and Cellular Therapy Program [address] [place] [address] Elaina Boss, PA 800 [facility] [address] [place] [phone] 02/10/2025 10:30 AM EDT Appointment [facility] Infusion Clinic 1 [address] [place] [address] 02/11/2025 2:00 PM EDT Appointment [facility] Infusion [facility] 1 [address] [place] [address] 02/12/2025 2:00 PM EDT Appointment [facility]fusion [facility] 1 [address] [place] [phone] 02/13/2025 2:00 PM EDT Appointment [facility]fusion [facility] 1 [address] [place] [address] 02/14/2025 2:00 PM EDT Appointment [facility]fusion [facility] 1 [address] [place] [address] 03/10/2025 8:30 AM EDT Clinical Support PAV Hematology/BMT and Cellular Therapy Program [address] [place] [address] 03/10/2025 9:00 AM EDT Office Visit PAV Hematology/BMT and Cellular Therapy Program [address] [place] [address] Isaura Wynn, RESPIRATORY CARE FACULTY 800 [facility] [address] [place] [phone] 03/10/2025 11:20 AM EDT Office Visit Pav Head, Neck & Respiratory 800 [facility], 2nd [place] [address] Elsa Razo, RESPIRATORY CARE FACULTY [address] [place] [address] documented as of this encounter Procedures Procedure Name Priority Date/Time Associated Diagnosis Comments PREPARE RBC Routine 12/09/2024 1:17 PM EDT Myelodysplasia (myelodysplastic syndrome) (CMS/HCC) Thrombocytopenia (CMS/HCC) documented in this encounter Results * Transfuse RBC, Irradiated (12/09/2024 3:57 PM EDT) us Kayli CHIU BLOOD TRANSFUSION ORDERA BLES Final Result * Prepare Leukocyte Reduced RBC: 1 Units, Irradiated (12/09/2024 1:17 PM EDT) Product Code [id number] CH BLOO D BANK Dispense Status Transfused BLOOD BANK Blood Expiration Date [id number] BLOOD BANK Unit Number [id number] B LOOD BANK Product Blood Type 9500 BLOOD BANK Blood Type O- BLOOD BANK Crossmatch Compatible BLOOD BANK Other Kayli CHIU BLOOD BANK PRODUCT ORDER VIKAS Final Result BLOOD BANK [address] documented in this encounter Visit Diagnoses [...] documented as of this encounter Care Teams Risk Investigator Relationship Specialty Start Date End Date Zhao Harris MD [facility] [place] [address] PCP - General 12/03/20 documented as of this encounter
--- OUTSIDE RECORDS SUMMARY | 2024-12-11 08:30 | XMS_ITS | Encounter Summary ---
Author Organization [facility] Address [address] [place] [address] Care Team Providers Care Buckle Sorter Name Role Phone Zhao Harris MD Primary Care Provider [phone] Reason for Visit * Reason Comments Nurse Visit Labs Encounter Details Date Type Department Care Team (Latest Contact Info) Description 12/11/2024 8:30 AM EDT Clinical Support [facility] Hematology/BMT and Cellular Therapy Program [address] [place] [address] [place] [address] Myelodysplasia (myelodysplastic syndrome) (CMS/HCC) Social History Tobacco [...] first t manav in the morning (EYE-MACHINE ADJUSTER) to steady your nerves or to get [...] Upcoming Encounters Date Type Department Care Team ([facility] st Contact Info) Description 02/02/2025 11:00 AM EDT Appointment P[facility] A Interventional Radiology [address] [place] [address] 02/10/2025 8:30 AM EDT Clinical Support [facility] Hematology/BMT and Cellular Therapy Program [address] [phone] 02/10/2025 9:00 AM EDT Office Visit [facility] Hematology/BMT and Cellular Therapy Program [address] [phone] Elaina Boss, [place] 800 [facility] [address] [place] [phone] 02/10/2025 10:30 AM EDT Appointment [facility] In[facility] [address] [place] [address] 02/11/2025 2:00 PM EDT Appointment [facility] [address] [place] [address] 02/12/2025 2:00 PM EDT Appointment [facility] [address] [place] [address] 02/13/2025 2:00 PM EDT Appointment [facility] [address] [place] [address] 02/14/2025 2:00 PM EDT Appointment [facility] [address] [place] [address] 03/10/2025 8:30 AM EDT Clinical Support [facility] CC Hematology/BMT and Cellular Therapy Program 750 [facility] [place] [phone] 03/10/2025 9:00 AM EDT Office Visit [facility] Hematology/BMT and Cellular Therapy Program 750 [facility], [address] [place] [phone] Isaura Wynn, TIE BINDER 800 [facility] [address] [place] [phone] 03/10/2025 11:20 AM EDT Office Visit Pav CC Head, Neck & Respiratory 800 [facility], 2nd [place] [address] Elsa Razo, TIE BINDER [address] [place] [phone] documented as of this encounter Procedures Procedure [...] LAB HEMATOLOGY METHOD 12/11/2024 10:53 AM EDT [facility] RBC Morphology Slide Reviewed LAB HEMATOLOGY METHOD 12/11/2024 10:53 AM EDT [facility] Platelet Estimate Platelet smear estimate consistent with automated count LAB HEMATOLOGY METHOD 12/11/2024 10:53 AM EDT [facility] Blood Venous blood specimen / Unknown Venipuncture / Unknown 12/11/2024 8:38 AM EDT 12/11/2024 8:50 AM EDT Virgen Vargas MD LAB BLOOD ORDERABLES Final Re sult Performing Organization Address City/[facility]/ZIP Co de Phone Number [facility] [address] [place] [address] * Peripheral blood smear, pathologist interpretation (12/11/2024 8:38 AM EDT) Clinical Diagnosis, Peripheral Smear History of acute myeloid leukemia (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 Dysplastic neutrophils (hypogranular) are noted. Moderate anemia and marked thrombocytopen ia. 12/11/2024 4:46 PM EDT [facility] Pathologist Signature, Peripheral Smear 12/11/2024 4:46 PM EDT [facility] Comment:Reviewed by: Omar Peralta MD Blood Venous blood specimen / Unknown Venipuncture / Unknown 12/11/2024 8:38 AM EDT 12/11/2024 8:50 AM EDT Virgen Vargas MD LAB PATHOLOGY ORDERABLES Terri l Result Performing Organization Address City/[facility]/ZIP Co de Phone Number [facility] [address] [place] [address] * (ABNORMAL) Manual Differential (12/11/2024 8:38 AM EDT) Blasts % 1 % LAB HEMATOLOGY METHOD 12/11/2024 10:53 AM EDT [facility] Promyelocytes % 0 % LAB [...] LAB HEMATOLOGY METHOD 12/11/2024 10:53 AM EDT [facility] Promyelocytes Absolute 0.00 10*3/uL LAB HEMATOLOGY METHOD 12/11/2024 10:53 AM EDT [facility] Myelocytes Absolute 0.00 10*3/uL LAB [...] LAB HEMATOLOGY METHOD 12/11/2024 10:53 AM EDT [facility] Blood Venous blood specimen / Unknown Venipuncture / Unknown 12/11/2024 8:38 AM EDT 12/11/2024 8:50 AM EDT us Virgen Vargas MD LAB BLOOD ORDERABLES Final Re sult [facility] [address] [place] [address] * (ABNORMAL) CBC and differential (12/11/2024 8:38 AM EDT) WBC Count 0.61(LL) 3.70 - 10.30 10*3/uL LAB HEMATOLOGY METHOD 12/11/2024 10:54 AM EDT [facility] RBC Count 2.80(L) 4.60 - 6.10 10*6/uL LAB HEMATOLOGY METHOD 12/11/2024 10:54 AM EDT [facility] HGB 8.9(L) 13.7 - 17.5 g/dL LAB HEMATOLOGY METHOD 12/11/2024 10:54 AM EDT [facility] HCT 25.1(L) 40.0 - 51.0 % LAB HEMATOLOGY METHOD 12/11/2024 10:54 AM EDT [facility] Platelet Count 11(LL) 155 - 369 10*3/uL LAB HEMATOLOGY METHOD 12/11/2024 10:54 AM EDT [facility] MCV 90 79 - 98 fL LAB HEMATOLOGY METHOD 12/11/2024 10:54 AM EDT [facility] MCH 31.8 26.0 - 32.0 pg LAB HEMATOLOGY METHOD 12/11/2024 10:54 AM EDT [facility] MCHC 35.5 30.7 - 35.5 g/dL LAB HEMATOLOGY METHOD 12/11/2024 10:54 AM EDT [facility] RDW 16.2(H) 11.5 - 14.5 % LAB HEMATOLOGY METHOD 12/11/2024 10:54 AM EDT [facility] MPV 12.3 8.8 - 12.5 fL LAB HEMATOLOGY METHOD 12/11/2024 10:54 AM EDT [facility] nRBC 4.9(H) <=0.0 per 100 WBCs LAB HEMATOLOGY METHOD 12/11/2024 10:54 AM EDT [facility] Differential Type Manual LAB HEMATOLOGY METHOD 12/11/2024 10:54 AM EDT [facility] Blood Venous blood specimen / [...] MD LAB BLOOD ORDERABLES Final Re sult [facility] [address] [place] [id number] * (ABNORMAL) Comprehensive Metabolic Panel, Plasma (12/11/2024 8:38 AM EDT) Glucose, Plasma 105(H) 74 - 99 mg/dL 12/11/2024 9:19 AM EDT [facility] BUN, Plasma 10 8 - 23 mg/dL 12/11/2024 9:19 AM EDT [facility] Creatinine, Plasma 0.75 0.70 - 1.20 mg/dL 12/11/2024 9:19 AM EDT [facility] BUN/Creatinine Ratio 13 12/11/2024 9:19 AM EDT [facility] Sodium, Plasma 140 136 - 145 mmol/L 12/11/2024 9:19 AM EDT [facility] Potassium, Plasma 4.1 3.6 - 4.9 mmol/L 12/11/2024 9:19 AM EDT [facility] Chloride, Plasma 110(H) 97 - 107 mmol/L 12/11/2024 9:19 AM EDT [facility] CO2, Plasma 22 22 - 29 mmol/L 12/11/2024 9:19 AM EDT [facility] Anion Gap 8 6 - 16 mmol/L 12/11/2024 9:19 AM EDT [facility] Total Calcium, Plasma 9.1 8.9 - 10.2 mg/dL 12/11/2024 9:19 AM EDT [facility] Total Protein 6.9 6.3 - 7.9 g/dL 12/11/2024 9:19 AM EDT [facility] Albumin, Plasma 4.0 3.5 - 5.2 g/dL 12/11/2024 9:19 AM EDT [facility] AST, Plasma 38 10 - 50 U/L 12/11/2024 9:19 AM EDT [facility] ALT, Plasma 40 10 - 50 U/L 12/11/2024 9:19 AM EDT [facility] Alkaline Phosphatase, Plasma 86 40 - 115 U/L 12/11/2024 9:19 AM EDT [facility] Total Bilirubin, Plasma 0.6 0.2 - 1.1 mg/dL 12/11/2024 9:19 AM EDT [facility] eGFRcr 97.7 mL/min/1.7 3m*2 12/11/2024 9:19 AM EDT [facility] Comment:Reported eGFRcr in m L/min/1.73m2 is based the CKD-EPI 2020 equation that does not use a race coefficient. Blood Venous blood specimen / Unknown Venipuncture / Unknown 12/11/2024 8:38 AM EDT 12/11/2024 8:50 AM EDT us Virgen Vargas MD LAB BLOOD ORDERABLES Final Re sult [facility] [address] [place] [address] documented in this encounter Visit Diagnoses Diagnosis [...] documented as of this encounter Care Teams Buckle Sorter Relationship Specialty Start Date End Date Zhao Harris MD [address] [place] [address] PCP - General 12/03/20 documented as of this encounter
--- OUTSIDE RECORDS SUMMARY | 2024-12-11 09:00 | XMS_ITS | Encounter Summary ---
Author Organization [facility] Address [address] 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) Virgen Vargas MD [address] [facility] Cancer [address] [address] Phone: tel: fax: Referral ID Status Reason Start Date Expiration Date V isits Requested Visits Authorized [id number] Closed Specialty Services Required 12/11/2024 06/12/2026 1 1 Encounter Details Date Type Department Care Team (Latest Contact Info) Description 12/11/2024 9:00 AM EDT Office Visit PAV CC Hematology/BMT and Cellular Therapy Program [address] [place] [phone] Virgen Vargas MD [address] [facility] Cancer [address] [address] Myelodysplasia (myelodysplastic syndrome) (CMS/HCC) (Primary [...] drink first t manav in the morning (EYE-TOWER LOADER OPERATOR) to steady your nerves or to [...] a preserved mata-T cell profile with a CD4:SW9itmyu of 2.7:1. Polyclonal B-cells (3%) and a small plasma cell population (0.6%) were also identified. Cytogenetics: Normal. Molecular Testing: PCR for NPM1 and FLT3 mutations are negative. Next-generation sequencing (NGS) myeloid panel: ASXL1 - p.[id number] - VAF 25% TP53 - p.Ufl530Wez - VAF 36% U2AF1 - p.Tdp565Oyr - VAF 33% 10/20/2024- started treatment with [...] a durable remission in the context of ZF54-vxbbtjv AML. The third, and most promising, option would be enrollment in a clinical trial, ideally one that targets TP53- mutant disease or incorporates novel agents. Unfortunately, there are no active trials available locally or at [facility], but I have reached out to Dr. Fernandes at [facility] to explore any opportunities there. We [...] in completing the documentation. Virgen Vargas M.D. Feeder Operator Division of Hematology/BMT [facility] [1] Current Outpatient Medications: acyclovir (Zovirax) [...] constipation., Disp: 30 tablet, Rfl: 3 HYDROcodone-acetaminophen ([place]) 5-325 MG tablet, Take 1 tablet by [...] Appointment PAV A Interventional Radiology [address] [place] [address] 02/10/2025 8:30 AM EDT Clinical Support PAV Hematology/BMT and Cellular Therapy Program [address] [address] 02/10/2025 9:00 AM EDT Office Visit PAV Hematology/BMT and Cellular Therapy Program [address] [address] Elaina Boss, PA [address] [facility] [address] [place] [address] 02/10/2025 10:30 AM EDT Appointment P[facility] Infusion Clinic 1 [address] [place] [address] 02/11/2025 2:00 PM EDT Appointment [facility] Infusion Clinic 1 [address] [place] [address] 02/12/2025 2:00 PM EDT Appointment [facility] Infusion Clinic 1 [address] [place] [address] 02/13/2025 2:00 PM EDT Appointment [facility] Infusion Clinic 1 [address] [place] [address] 02/14/2025 2:00 PM EDT Appointment P[facility] Infusion Clinic 1 [address] [place] [address] 03/10/2025 8:30 AM EDT Clinical Support PAV Hematology/BMT and Cellular Therapy Program [address] [address] 03/10/2025 9:00 AM EDT Office Visit PAV Hematology/BMT and Cellular Therapy Program [address] [address] Isaura Wynn, ESTRELLA [address] [facility] [address] [place] [phone] 03/10/2025 11:20 AM EDT Office Visit Pav CC Head, Neck & Respiratory 800 [facility], 2nd [place] [address] Elsa Razo, SIGNAL MANAGER [address] [place] [address] documented as of this encounter Visit Diagnoses [...] Date End Date Zhao Harris MD [address] [address] PCP - General 12/03/20 documented as of this encounter
--- OUTSIDE RECORDS SUMMARY | 2024-12-11 13:00 | XMS_ITS | Encounter Summary ---
Author Organization [facility] Address [address] [place] [address] Care Team Providers Care Table Keeper Name Role Phone Zhao Harris MD Primary Care Provider [phone] Encounter Details Date Type Department Care Team (Latest Contact Info) Description 12/11/2024 1:00 PM EDT Clinical Support [facility] Cancer Acute Treatment [facility] [address] , 2nd [place] [address] Myelodysplasia (myelodysplastic syndrome) (CMS/HCC) (Primary Dx); Thrombocytopenia [...] drink first t manav in the morning (EYE-FLOWER PLANTER) to steady your nerves or to get [...] Appointment PAV A Interventional Radiology [address] [place] [address] 02/10/2025 8:30 AM EDT Clinical Support [facility] Hematology/BMT and Cellular Therapy Program [address] [address] 02/10/2025 9:00 AM EDT Office Visit [facility] Hematology/BMT and Cellular Therapy Program [address] [address] Elaina Boss, PA 800 [facility] [address] [place] [phone] 02/10/2025 10:30 AM EDT Appointment [facility] 1 744 [place] [address] 02/11/2025 2:00 PM EDT Appointment [facility] 1 [address] [place] [address] 02/12/2025 2:00 PM EDT Appointment [facility] 1 [address] [place] [address] 02/13/2025 2:00 PM EDT Appointment [facility] 1 [address] [place] [address] 02/14/2025 2:00 PM EDT Appointment [facility] 1 [address] [place] [address] 03/10/2025 8:30 AM EDT Clinical Support [facility] Hematology/BMT [facility] Cellular Therapy Program [address] [address] 03/10/2025 9:00 AM EDT Office Visit [facility] Hematology/BMT and Cellular Therapy Program [address] [phone] Isaura Wynn, SENIOR CISCO NETWORK ENGINEER 800 [facility] [address] [place] [phone] 03/10/2025 11:20 AM EDT Office Visit Pav Head, Neck & Respiratory 800 [facility], 2nd [place] [phone] Elsa Razo, SENIOR CISCO NETWORK ENGINEER 800 [place] [address] documented as of this encounter [...] LAB HEMATOLOGY METHOD 12/11/2024 2:37 PM EDT [facility] Blood Venous blood specimen / Unknown Venipuncture / Unknown 12/11/2024 2:04 PM EDT 12/11/2024 2:34 PM EDT Glenroy Kim MD LAB BLOOD ORDERABLES Fi nal Result [facility] 800 [place] [address] * Prepare Leukocyte Reduced Platelets: 1 Units (12/11/2024 12:57 PM EDT) Product Code I8809Q79 CH BLOO D BANK Dispense Status Transfused BLOOD BANK Blood Expiration Date [id number] BLOOD BANK Unit Number [id number] CH B LOOD BANK Product Blood Type 6200 BLOOD BANK Blood Type A+ CH BLOOD BANK Blood Venous blood specimen / Unknown Kayli CHIU BLOOD BANK PRODUCT ORDER VIKAS Final Result BLOOD BANK [address] documented in this encounter Visit Diagnoses [...] documented as of this encounter Care Teams Table Keeper Relationship Specialty Start Date End Date Zhao Harris MD [address] [place] [address] PCP - General 12/03/20 documented as of this encounter
--- OUTSIDE RECORDS SUMMARY | 2024-12-11 14:30 | XMS_ITS | Encounter Summary ---
Author Organization [facility] Address [address] [place] [address] Care Team Providers Care Director Behavioral Health Name Role Phone Zhao Harris MD Primary Care Provider [phone] Reason for Visit * Consultation (Routine) - Closed Specialty Diagnoses / Procedures Referred By Contact Referred To Contact Interventional Radiology Diagnoses Myelodysplasia (myelodysplastic syndrome) (CMS/HCC) Mckinley Lee MD [address] [place] [address] Phone: tel:[phone] fax:[phone] [facility] Vascular Interventional Radiology [address] [facility] Room [address] [place] [phone] Phone: tel: Referral ID Status Reason Start Date Expiration Date V isits Requested Visits Authorized [id number] Closed Specialty Services Required 12/01/2024 06/02/2026 1 1 Encounter Details Date Type Department Care Team (Latest Contact Info) Description 12/11/2024 2:30 PM EDT Office Visit [facility] Vascular Interventional Radiology [address] [facility] Room [address] [place] [phone] Judy Leung APRN, SHEEBA [address] [place] [address] Port-A-Cath in place (Primary Dx); [...] drink first t manav in the morning (EYE-MIRROR SILVERER) to steady your nerves or to get [...] Orders * Progress Notes - Judy Leung, PICKED EDGE SEWING MACHINE OPERATOR, DNP - 12/11/2024 2:30 PM EDT Images [...] been accessed. He is being referred to [facility] for possible trials. Allergies: Patient has no [...] for port placement. New AML, starting chemotherapy. Tree Planter: Mckinley Lee MD Secondary Christian Education Director: Dr. David Holt Rad Dose: 6 mGy [...] was placed supine on the fluoro table. Carton Filler ultrasonography revealed the vein to be compressible [...] with no evidence of complication. Device: 6 Amharic port catheter cut to length of 25 [...] placement on 12/01/24 - Being referred to [facility] for possible trials PLAN: - Port accessed in clinic today and functioning well - Denies fever or chills; no drainage, swelling at site - Instructed to call with any signs of infection or malfunction - Return to [facility] PRN Medical Decision Making/Plan: Diagnoses and all orders for this visit: Port-A-Cath in place - heparin flush (porcine) 100 UNIT/ML injection 500 Units Myelodysplasia (myelodysplastic syndrome) (CMS/HCC) - Discharge Ambulatory referral to [facility] Clinic I spent 35 minutes on this [...] daily., Disp: 90 tablet, Rfl: 3 HYDROcodone-acetaminophen ([place]) 5-325 MG tablet, Take 1 tablet by [...] Appointment PAV A Interventional Radiology [address] [place] [address] 02/10/2025 8:30 AM EDT Clinical Support P[facility] Hematology/BMT and Cellular Therapy Program [address] [place] [address] [place] [address] 02/10/2025 9:00 AM EDT Office Visit [facility] Hematology/BMT and Cellular Therapy Program [address] [place] [address] [place] [address] Elaina Boss, PA 800 [facility] Cancer [address] [phone] 02/10/2025 10:30 AM EDT Appointment [facility] 1 [address] [place] [phone] 02/11/2025 2:00 PM EDT Appointment [facility] 1 [address] [place] [phone] 02/12/2025 2:00 PM EDT Appointment [facility] 1 [address] [place] [address] 02/13/2025 2:00 PM EDT Appointment [facility] 1 [address] [place] [phone] 02/14/2025 2:00 PM EDT Appointment [facility] 1 [address] [place] [address] 03/10/2025 8:30 AM EDT Clinical Support [facility] CC Hematology/BMT and Cellular Therapy Program [address] [phone] 03/10/2025 9:00 AM EDT Office Visit [facility] CC Hematology/BMT and Cellular Therapy Program [address] [phone] Isaura Wynn, PICKED EDGE SEWING MACHINE OPERATOR 800 [facility] Cancer [address] [phone] 03/10/2025 11:20 AM EDT Office Visit [facility] CC Head, Neck & Respiratory 800 [facility], 2nd [place] [phone] Elsa Razo, PICKED EDGE SEWING MACHINE OPERATOR [address] [place] [address] documented as of this encounter Procedures Procedure [...] 12/12/2024 8:43 AM EDT us Judy Leung PICKED EDGE SEWING MACHINE OPERATOR, DNP LAB BLOOD BANK TEST ORDE MAGNO Final Result BLOOD BANK [address] [place] [address], documented in this encounter Visit Diagnoses Diagnosis [...] as of this encounter Care Teams Director Behavioral Health Relationship Specialty Start Date End Date Zhao Harris MD [address] [place] [address] PCP - General 12/03/20 documented as of this encounter
--- OUTSIDE RECORDS SUMMARY | 2024-12-16 08:00 | XMS_ITS | Encounter Summary ---
Author Organization [facility] Address [address] [place] [address] Care Team Providers Care Licensed Midwife Name Role Phone Zhao Harris MD Primary Care Provider [phone] Reason for Visit * Reason Comments Labs Nurse Visit Encounter Details Date Type Department Care Team ([facility] Contact Info) Description 12/16/2024 8:00 AM EDT Clinical Support PAV CC Hematology/BMT and Cellular Therapy Program [address] [place] [address] [place] [address] Social History Tobacco Use Types Packs/Day Years [...] drink first t manav in the morning (EYE-STARCH DUMPER) to steady your nerves or to get [...] [facility] Description 02/02/2025 11:00 AM EDT Appointment PAV A Interventional Radiology [address] [place] [address] 02/10/2025 8:30 AM EDT Clinical Support PAV CC Hematology/BMT and Cellular Therapy Program [address] [address] 02/10/2025 9:00 AM EDT Office Visit PAV Hematology/BMT and Cellular Therapy Program [address] [address] Elaina Boss, PA 800 [facility] [address] [place] [address] 02/10/2025 10:30 AM EDT Appointment [facility] 1 7[address] [place] [address] 02/11/2025 2:00 PM EDT Appointment [facility] 1 [address] [place] [address] 02/12/2025 2:00 PM EDT Appointment [facility] 1 [address] [place] [address] 02/13/2025 2:00 PM EDT Appointment [facility] 1 [address] [place] [address] 02/14/2025 2:00 PM EDT Appointment [facility] 1 [address] [place] [address] 03/10/2025 8:30 AM EDT Clinical Support PAV CC Hematology/BMT and Cellular Therapy Program [address] [place] [address] 03/10/2025 9:00 AM EDT Office Visit P[facility] CC Hematology/BMT and Cellular Therapy Program 750 [facility] [place] [place] [address] Isaura Wynn, FUR WEIGHER 800 [facility] [address] [place] [address] 03/10/2025 11:20 AM EDT Office Visit Pav CC Head, Neck & Respiratory 800 [facility], 2nd [place] [address] Elsa Razo, FUR WEIGHER 800 [place] [address] documented as of this encounter Visit Diagnoses [...] documented as of this encounter Care Teams Licensed Midwife Relationship Specialty Start Date End Date Zhao Harris MD [address] [place] [address] [id number] PCP - General 12/03/20 documented as of this encounter
--- OUTSIDE RECORDS SUMMARY | 2024-12-16 08:30 | XMS_ITS | Encounter Summary ---
Author Organization [facility] Address [address] [place] [address] Care Team Providers Care Rotary Machine Operator Name Role Phone Zhao Harris MD Primary Care Provider [phone] Reason for Referral * Genetic Testing (Routine) - Authorized Specialty Diagnoses / Procedures Referred By Justice t Referred To Contact Lab Diagnoses Myelodysplasia (myelodysplastic syndrome) (CMS/HCC) Procedures Leukemia/Lymphoma - Immunophenotyping by Flow Cytometry Virgen Vargas MD [address] [facility] [address] [address] Phone: tel: fax: Referral ID Status Reason Start Date Expiration Date V isits Requested Visits Authorized [id number] Authorized 12/18/2024 06/19/2026 1 1 * Genetic Testing (Routine) - Authorized Specialty Diagnoses / Procedures [facility] By [facility] Referred To Contact Lab Diagnoses Myelodysplasia (myelodysplastic syndrome) (CMS/HCC) Procedures Bone marrow exam Virgen Vargas MD [address] [facility] [address] [address] Phone: tel: fax: Referral ID Status Reason Start Date Expiration Date V isits Requested Visits Authorized [id number] Authorized 12/18/2024 06/19/2026 1 1 Reason for Visit * Reason Comments Acute Myeloid Leukemia Encounter Details Date Type Department Care Team (Latest Contact Info) Description 12/16/2024 8:30 AM EDT Office Visit [facility] CC Hematology/BMT and Cellular Therapy Program [address] [facility] [place] [address] Isaura Wynn, PLASTICS SEASONER OPERATOR [address] [facility] [address] [place] [phone] Myelodysplasia (myelodysplastic syndrome) (CMS/HCC) (Primary Dx) Social [...] first t manav in the morning (EYE-MACHINE ADJUSTER HELPER) to steady your nerves or to [...] Notes * Progress Notes - Isaura Wynn, PLASTICS SEASONER OPERATOR - 12/16/2024 8:30 AM EDT HEMATOLOGY ONCOLOGY [...] a preserved mata-T cell profile with a CD4:HH6jrrbu of 2.7:1. Polyclonal B-cells (3%) and a small plasma cell population (0.6%) were also identified. Cytogenetics: Normal. Molecular Testing: PCR for NPM1 and FLT3 mutations are negative. Next-generation sequencing (NGS) myeloid panel: ASXL1 - p.[id number] - VAF 25% TP53 - p.[id number] - VAF 36% U2AF1 - p.[id number] - VAF 33% 10/20/2024- started treatment with [...] (AML) with biallelic TP53 mutation Mr. Hugo yLons is a 69-year-old male with a history [...] a durable remission in the context of [id number] AML. The third, and most promising, option would be enrollment in a clinical trial, ideally one that targets TP53- mutant disease or incorporates novel agents. Unfortunately, there are no active trials available locally or at [facility], but I have reached out to Dr. Fernandes at [facility] to explore any opportunities there. [...] daily., Disp: 90 tablet, Rfl: 3 HYDROcodone-acetaminophen (Mio) 5-325 MG tablet, Take 1 tablet by [...] History: N/A Plan: Venetoclax rx sent to [facility]. Refills due monthly. Patient will return to clinic in 4 weeks. Will follow-up at that time. documented in this encounter Plan of Treatment Upcoming Encounters Date Type Department Care Team ([facility] st Contact Info) Description 02/02/2025 11:00 AM EDT Appointment [facility] A Interventional Radiology [address] [place] [address] 02/10/2025 8:30 AM EDT Clinical Support [facility] Hematology/BMT and Cellular Therapy Program [address] [address] 02/10/2025 9:00 AM EDT Office Visit [facility] Hematology/BMT and Cellular Therapy Program [address] [phone] Elaina Boss PA 800 [facility] [address] [place] [phone] 02/10/2025 10:30 AM EDT Appointment [facility] Infusion [facility] [address] [place] [address] 02/11/2025 2:00 PM EDT Appointment [facility] [address] [place] [address] 02/12/2025 2:00 PM EDT Appointment [facility] [address] [place] [address] 02/13/2025 2:00 PM EDT Appointment [facility] [address] [place] [address] 02/14/2025 2:00 PM EDT Appointment [facility] [address] [place] [address] 03/10/2025 8:30 AM EDT Clinical Support [facility] Hematology/BMT and Cellular Therapy Program [address] [address] 03/10/2025 9:00 AM EDT Office Visit [facility] Hematology/BMT and Cellular Therapy Program [address] [phone] Isaura Wynn, PLASTICS SEASONER OPERATOR [address] [facility] [address] [place] [address] 03/10/2025 11:20 AM EDT Office Visit Pav CC Head, Neck & Respiratory [address] [facility], [address] [place] [address] Elsa Razo, PLASTICS SEASONER OPERATOR [address] [place] [phone] documented as of this encounter Procedures Procedure Name Priority Date/Time Associated Diagnosis Comments GROUP A STREPTOCOCCUS BY PCR Routine 12/16/2024 9:40 AM EDT Myelodysplasia (myelodysplastic syndrome) ([facility]) STREPTOCOCCUS CULTURE Routine 12/16/2024 9:40 AM EDT Myelodysplasia (myelodysplastic syndrome) ([facility]) CBC WITH AUTO DIFFERENTIAL Routine 12/16/2024 8:10 AM EDT Myelodysplasia (myelodysplastic syndrome) ([facility]) URIC ACID, PLASMA Routine 12/16/2024 8:1 0 AM EDT Myelodysplasia (myelodysplastic syndrome) ([facility]) PHOSPHORUS, PLASMA Routine 12/16/2024 8: [...] Clinical Indication AML 01/07/2025 10:18 AM EDT [facility] Flow Cytometry Interpretation APPROXIMATELY 16% MYELOID BLASTS; EXPRESSING CD34, CD117, CD13, CD33, HLA-DR, PARTIAL CD7, PARTIAL CD123, VARIABLE CD38, AND MODERATE CD45, SEE COMMENT, BONE MARROW ASPIRATE. 01/07/2025 10:18 AM EDT [facility] Comments Specimen viability is 79%. [...] disease. Final interpretation requires morphologic correlation (BM [id number]). The following antibodies were used in this analysis: CD45, CD2, CD3, CD4, CD5, CD7, CD8, CD10, CD13, CD14, CD15, CD16, CD19, CD20, CD33, CD34, CD38, CD56, CD117, HLA-DR, kappa surface light chains, lambda surface light chains, CD123 01/07/2025 10:18 AM EDT [facility] Disclaimer This test was developed and its performance characteristics determined by the Immuno-Molecular Pathology Laboratory at the [facility]. It has not been cleared or [...] clinical laboratory testing. 01/07/2025 10:18 AM EDT [facility] Pathologist Signature Reviewed by: Tessie Peralta MD 01/07/2025 10:18 AM EDT [facility] MRD Indicated Test Not Indicated 10:18 AM EDT [facility] Bone Marrow Specimen from bone marrow obtained by aspiration / Unknown Non-blood Collection / Unknown 01/06/2025 9:48 AM EDT 01/06/2025 11:20 AM EDT us Virgen Vargas MD LAB FLOW CYTOMETRY ORDERABLES Final Result [facility] [address] [place] [address] * Bone marrow exam (01/06/2025 9:48 AM EDT) Case Report Bone Marrow Case: [id number] Authorizing Provider: Virgen Vargas MD Collected: 01/06/2025 0948 Ordering Location: [facility] Hematology/BMT and Received: 01/06/2025 1108 Cellular Therapy Program Pathologist: Tessie Peralta MD Specimens: A) - Bone Marrow Aspirate, left B) - Bone Marrow Biopsy, left C) - Peripheral Blood for Bone Marrow 6:13 PM EDT [facility] Final Diagnosis BONE MARROW, LEFT POSTERIOR ILIAC CREST, (PERIPHERAL SMEAR, ASPIRATE SMEARS, AND CORE BIOPSY): - MILDLY HYPOCELLULAR BONE MARROW WITH ERYTHROID HYPERPLASIA, MARKEDLY REDUCED GRANULOPOIESIS, PERSISTENT DYSPOIESIS AND 10% BLASTS, SEE COMMENT. 6:13 PM EDT [facility] at 1813 EDT Comment The marrow cellularity is composed of erythroid cells with markedly reduced granulopoiesis and decreased megakaryocytes. Persistent trilineage dyspoiesis is noted. The blast percentages are higher by flow cytometry analysis as the majority of marrow cellularity consists of erythroid precursors that are removed by flow cytometry. 5 6:13 PM EDT [facility] Clinical Information AML 12/22 6:13 PM EDT [facility] CBC and Differential PERIPHERAL BLOOD: [...] blasts are identified. 5 6:13 PM EDT [facility] Bone Marrow Differential BONE MARROW DIFFERENTIAL: 400 cells Normal Patient Neutrophils 15-50 0 Metamyelocytes 4-19 1 Myelocytes 1-18 2 Promyelocytes 1-8 1 Blasts 0-2 10 Monocytes 0-5 0 Erythroid 16-38 73 Lymphocytes 3-24 4 Eosinophils 0-6 1 Basophils 0-2 0 Plasma cells 0-4 8 Other 5 6:13 PM EDT [facility] Bone Marrow Aspirate and Biopsy [...] trabeculae are unremarkable. 5 6:13 PM EDT [facility] Special and Immunohistochemical Stains Immunohistochemica l stains [...] performed at the [facility], [address] [place] [address]. All tests reported here, except those addressing [...] on decalcified specimens. 5 6:13 PM EDT [facility] Flow Cytometry Interpretation APPROXIMATELY 16% MYELOID BLASTS; EXPRESSING CD34, CD117, CD13, CD33, HLA-DR, PARTIAL CD7, PARTIAL CD123, VARIABLE CD38, AND MODERATE CD45, SEE COMMENT, BONE MARROW ASPIRATE ([id number]) 6:13 PM EDT [facility] Gross Description B. LEFT A single specimen is received in formalin labeled bone marrow biopsy left posterior iliac crest and consists of 2 piece(s) of tissue measuring 0.8/0.2 cm in length 0.2 cm in diameter. The specimen is submitted in to Histology for decalcification and routine processing. Cold Time: <1m 6:13 PM EDT [facility] Note: A resident was involved in the service. I attest I examined the relevant preparations for the specimens and confirmed the diagnosis or interpretation. 6:13 PM EDT [facility] Bone Marrow Peripheral blood specimen [...] MD LAB PATHOLOGY ORDERABLES Terri lara Result [facility] [address] [place] [address] * Streptococcus Culture (12/16/2024 9:40 AM EDT) Culture Reading Strep A No Streptococcus pyogenes or Streptococcus dysgalactiae isolated 12/17/2024 2:28 PM EDT [facility] Swab Pharyngeal structure / Unknown Non-blood Collection / Unknown 12/16/2024 9:40 AM EDT 12/16/2024 10:10 AM EDT Isaura L Meikel PLASTICS SEASONER OPERATOR LAB MICROBIOLOGY - GENERAL ORD ERABLES Final Result Performing Organization Address [facility] de Phone Number [facility] [address] [place] [address] * Group A Streptococcus by PCR (12/16/2024 9:40 AM EDT) Group A Streptococcus PCR Result Not Detected Not Detected 12/16/2024 11:53 AM EDT [facility] Swab Pharyngeal structure / Unknown Non-blood Collection / Unknown 12/16/2024 9:40 AM EDT 12/16/2024 10:10 AM EDT us Isaura Wynn APRN LAB MICROBIOLOGY - GENERAL ORD ERABLES Final Result Performing Organization Address [facility] [place] [address] * (ABNORMAL) Uric acid (12/16/2024 8:10 AM EDT) Uric Acid, Plasma 3.0(L) 3.7 - 8.0 mg/dL 12/16/2024 8:58 AM EDT [facility] Blood Venous blood specimen / Unknown Venipuncture / Unknown 12/16/2024 8:10 AM EDT 12/16/2024 8:27 AM EDT us Isaura Wynn PLASTICS SEASONER OPERATOR LAB BLOOD ORDERABLES Final Res ult Performing Organization Address [facility] de Phone Number [facility] [address] [place] [address] * Phosphorus, Plasma (12/16/2024 8:10 AM EDT) Phosphorus, Plasma 3.4 2.5 - 4.5 mg/dL 12/16/2024 8:58 AM EDT [facility] Blood Venous blood specimen / Unknown Venipuncture / Unknown 12/16/2024 8:10 AM EDT 12/16/2024 8:27 AM EDT us Isaura Wynn PLASTICS SEASONER OPERATOR LAB BLOOD ORDERABLES Final Res ult Performing Organization Address [facility] Co de Phone Number [facility] [address] [place] [address] * Magnesium, Plasma (12/16/2024 8:10 AM EDT) Magnesium, Plasma 2.4 1.9 - 2.4 mg/dL 12/16/2024 8:58 AM EDT [facility] Blood Venous blood specimen / Unknown Venipuncture / Unknown 12/16/2024 8:10 AM EDT 12/16/2024 8:27 AM EDT us Isaura L Meikel PLASTICS SEASONER OPERATOR LAB BLOOD ORDERABLES Final Res ult Performing Organization Address [facility] Co de Phone Number [facility] [address] [place] [address] * Lactate Dehydrogenase, Plasma (12/16/2024 8:10 AM EDT) LDH, Plasma 230 116 - 250 U/L 12/16/2024 8:58 AM EDT [facility] Blood Venous blood specimen / Unknown Venipuncture / Unknown 12/16/2024 8:10 AM EDT 12/16/2024 8:27 AM EDT us Isaura L Meikel PLASTICS SEASONER OPERATOR LAB BLOOD ORDERABLES Final Res ult Performing Organization Address [facility] Co de Phone Number [facility] [address] [place] [address] * (ABNORMAL) Comprehensive Metabolic Panel, Plasma (12/16/2024 8:10 AM EDT) Glucose, Plasma 110(H) 74 - 99 mg/dL 12/16/2024 8:58 AM EDT [facility] BUN, Plasma 10 8 - 23 mg/dL 12/16/2024 8:58 AM EDT [facility] Creatinine, Plasma 0.79 0.70 - 1.20 mg/dL 12/16/2024 8:58 AM EDT [facility] BUN/Creatinine Ratio 13 12/16/2024 8:58 AM EDT [facility] Sodium, Plasma 140 136 - 145 mmol/L 12/16/2024 8:58 AM EDT [facility] Potassium, Plasma 4.2 3.6 - 4.9 mmol/L 12/16/2024 8:58 AM EDT [facility] Chloride, Plasma 109(H) 97 - 107 mmol/L 12/16/2024 8:58 AM EDT [facility] CO2, Plasma 21(L) 22 - 29 mmol/L 12/16/2024 8:58 AM EDT [facility] Anion Gap 10 6 - 16 mmol/L 12/16/2024 8:58 AM EDT [facility] Total Calcium, Plasma 8.9 8.9 - 10.2 mg/dL 12/16/2024 8:58 AM EDT [facility] Total Protein 6.8 6.3 - 7.9 g/dL 12/16/2024 8:58 AM EDT [facility] Albumin, Plasma 4.0 3.5 - 5.2 g/dL 12/16/2024 8:58 AM EDT [facility] AST, Plasma 23 10 - 50 U/L 12/16/2024 8:58 AM EDT [facility] ALT, Plasma 25 10 - 50 U/L 12/16/2024 8:58 AM EDT [facility] Alkaline Phosphatase, Plasma 95 40 - 115 U/L 12/16/2024 8:58 AM EDT [facility] Total Bilirubin, Plasma 0.6 0.2 - 1.1 mg/dL 12/16/2024 8:58 AM EDT [facility] eGFRcr 96.2 mL/min/1.7 3m*2 12/16/2024 8:58 AM EDT [facility] Comment:Reported eGFRcr in m L/min/1.73m2 is based the CKD-EPI 2020 equation that does not use a race coefficient. Blood Venous blood specimen / Unknown Venipuncture / Unknown 12/16/2024 8:10 AM EDT 12/16/2024 8:27 AM EDT us Isaura Wynn APRN LAB BLOOD ORDERABLES Final Res ult [facility] [address] [place] [address] * (ABNORMAL) CBC and Differential (12/16/2024 8:10 AM EDT) WBC Count 0.59(LL) 3.70 - 10.30 10*3/uL LAB HEMATOLOGY METHOD 12/16/2024 10:[address] [facility] RBC Count 2.48(L) 4.60 - 6.10 10*6/uL LAB HEMATOLOGY METHOD 12/16/2024 10:[address] [facility] HGB 8.0(L) 13.7 - 17.5 g/dL LAB HEMATOLOGY METHOD 12/16/2024 10:[address] [facility] HCT 22.1(L) 40.0 - 51.0 % LAB HEMATOLOGY METHOD 12/16/2024 10:[address] [facility] Platelet Count <5(LL) 155 - 369 10*3/uL LAB HEMATOLOGY METHOD 12/16/2024 10:[address] [facility] MCV 89 79 - 98 fL LAB HEMATOLOGY METHOD 12/16/2024 10:[address] [facility] MCH 32.3(H) 26.0 - 32.0 pg LAB HEMATOLOGY METHOD 12/16/2024 10:[address] [facility] MCHC 36.2(H) 30.7 - 35.5 g/dL LAB HEMATOLOGY METHOD 12/16/2024 10:[address] [facility] RDW 16.3(H) 11.5 - 14.5 % LAB HEMATOLOGY METHOD 12/16/2024 10:[address] [facility] MPV LAB HEMATOLOGY METHOD 12/16/2024 10:[address] [facility] Comment:Not Measured nRBC 0.0 <=0.0 per 100 WBCs LAB HEMATOLOGY METHOD 12/16/2024 10:[address] [facility] Differential Type Automated LAB HEMATOLOGY METHOD 12/16/2024 10:[address] [facility] Neutrophils % 5 % LAB HEMATOLOGY METHOD 12/16/2024 10:[address] [facility] Lymphocytes % 90 % LAB HEMATOLOGY METHOD 12/16/2024 10:[address] [facility] Monocytes % 5 % LAB [...] Final Res ult [facility] [address] [place] [address] documented in this encounter Visit Diagnoses Diagnosis [...] documented as of this encounter Care Teams Rotary Machine Operator Relationship Specialty Start Date End Date Zhao Harris MD [address] [place] [address] PCP - General 12/03/20 documented as of this encounter
--- OUTSIDE RECORDS SUMMARY | 2024-12-16 10:00 | XMS_ITS | Encounter Summary ---
Author Organization [facility] Address [address] [place] [address] Care Team Providers Care Personal Carer Name Role Phone Zhao Harris MD Primary Care Provider + [phone] Reason for Visit * Episode Based Medications (Routine) - Closed Specialty Diagnoses / Procedures Referred By Justice mcgee Referred To Contact Diagnoses Myelodysplasia (myelodysplastic syndrome) (CMS/HCC) Procedures Azacitidine Daily x 7 / Venetoclax Every 28 Days Virgen Vargas MD 800 [facility] Cancer [address] [address] Phone: tel: fax: Virgen Vargas MD [address] [address] Phone: tel: fax: Referral ID Status Reason Start Date Expiration Date Visits Re quested Visits Authorized [id number] Closed 10/20/2024 04/21/2026 1 91 Encounter Details Date Type Department Care Team (Latest Contact Info) Description 12/16/2024 10:00 AM EDT - 12/16/2024 10:59 AM EDT Hospital Encounter [facility] H Infusion 800 [place] [phone] Myelodysplasia (myelodysplastic syndrome) (CMS/HCC) (Primary Dx); Thrombocytopenia [...] first t manav in the morning (EYE-ANIMAL IMPERSONATOR) to steady your nerves or to get [...] 5 MG tabletIndications :Coronary artery disease involving shoshone-bannock heart with angina pectoris, unspecified vessel or lesion type (CMS/HCC),Hyperte nsion, unspecified type Take 1 tablet (5 mg) by mouth daily. 90 tablet 3 09/11/2024 HYDROcodone-aceta minophen ([place]) 5-325 MG tablet Take 1 tablet by [...] MG SL tabletIndications :Coronary artery disease involving shoshone-bannock heart with angina pectoris, unspecified vessel or [...] AM EDT Appointment PAV A Interventional Radiology [address] [place] [phone] 02/10/2025 8:30 AM EDT Clinical Support P[facility] Hematology/BMT and Cellular Therapy Program [address] [address] 02/10/2025 9:00 AM EDT Office Visit [facility] Hematology/BMT and Cellular Therapy Program [address] [place] [address] Elaina Boss, PA 800 [facility] [address] [place] [phone] 02/10/2025 10:30 AM EDT Appointment [facility] 1 [address] [place] [address] 02/11/2025 2:00 PM EDT Appointment [facility] 1 [address] [place] [address] 02/12/2025 2:00 PM EDT Appointment [facility] 1 [address] [place] [address] 02/13/2025 2:00 PM EDT Appointment [facility] 1 [address] [place] [address] 02/14/2025 2:00 PM EDT Appointment [facility] 1 [address] [place] [address] 03/10/2025 8:30 AM EDT Clinical Support [facility] Hematology/BMT and Cellular Therapy Program [address] [address] 03/10/2025 9:00 AM EDT Office Visit [facility] Hematology/BMT and Cellular Therapy Program [address] [place] [address] Isaura Wynn, ESTRELLA 800 [facility] Cancer [address] [address] 03/10/2025 11:20 AM EDT Office Visit Pav Head, Neck & Respiratory 800 [facility], 2nd [place] [address] Elsa Razo, POLEYARD SUPERVISOR 800 [place] [address] documented as of this encounter [...] LAB HEMATOLOGY METHOD 12/16/2024 1:00 PM EDT [facility] Blood Venous blood specimen / Unknown Venipuncture / Unknown 12/16/2024 12:23 PM EDT 12/16/2024 12:51 PM EDT us Virgen Vargas MD LAB BLOOD ORDERABLES Final Re sult [facility] 800 [place] [address] * Transfuse platelets (12/16/2024 12:21 PM EDT) [...] S Final Result Performing Organization Address City/State/[facility] Co de Phone Number BLOOD BANK 800 [place] [address], * Exception to Standard Practice, Pathologist Interpretation [...] ORDERAB LES Final Result BLOOD BANK 800 [place] [address], [place] * Prepare Leukocyte Reduced Platelets: 1 Units (12/16/2024 10:54 AM EDT) Product Code R2888Y14 CH BLOO D BANK Dispense Status Transfused BLOOD BANK Blood Expiration Date BLOOD BANK Unit Number [id number] CH B LOOD BANK Product Blood Type 8400 BLOOD BANK Blood Type AB+ BLOOD BANK Blood Venous blood specimen / Unknown us Kayli CHIU BLOOD BANK PRODUCT ORDER VIKAS Final Result Performing Organization Address [facility] Co de Phone Number BLOOD BANK 800 [place] [address], * Prepare Leukocyte Reduced RBC: 1 Units, Irradiated (12/16/2024 10:54 AM EDT) Product Code E1478E20 CH BLOO D BANK Dispense Status Transfused BLOOD BANK Blood Expiration Date [id number] BLOOD BANK Unit Number [id number] CH B LOOD BANK Product Blood Type 9500 BLOOD BANK Blood Type O- CH BLOOD BANK Crossmatch Compatible CH BLOOD BANK Other Kayli CHIU BLOOD BANK PRODUCT ORDER VIKAS Final Result Performing Organization Address City/[facility]/ZIP Co de Phone Number BLOOD BANK 800 [place] [address], documented in this encounter Visit Diagnoses Diagnosis [...] as of this encounter Care Teams Personal Carer Relationship Specialty Start Date End Date Zhao Harris MD [address] [phone] PCP - General 12/03/20 documented as of this encounter
--- OUTSIDE RECORDS SUMMARY | 2024-12-16 11:00 | XMS_ITS | Encounter Summary ---
Author Organization Healthcare Address [address] [place] [address] Care Team Providers Care Salvage Supervisor Name Role Phone Zhao Harris MD Primary Care Provider [phone] Encounter Details Date Type Department Care Team (Latest Contact Info) Description 12/16/2024 11:00 AM EDT - 12/16/2024 11:59 PM EDT Hospital Encounter [facility] [address] [place] [address] Myelodysplasia (myelodysplastic syndrome) (CMS/HCC) (Primary Dx) Discharge [...] drink first t manav in the morning (EYE-MEDIA INTERN) to steady your nerves or to get [...] 5 MG tabletIndications :Coronary artery disease involving [place]erated [place] heart with angina pectoris, unspecified vessel or lesion type (CMS/HCC),Hyperte nsion, unspecified type Take 1 tablet (5 mg) by mouth daily. 90 tablet 3 09/11/2024 HYDROcodone-aceta minophen ([place]) 5-325 MG tablet Take 1 tablet by [...] MG SL tabletIndications :Coronary artery disease involving [place] heart with angina pectoris, unspecified vessel or [...] Appointment [facility] Interventional Radiology [address] [place] [address] 02/10/2025 8:30 AM EDT Clinical Support [facility] Hematology/BMT and Cellular Therapy Program [address] [place] [address] [place] [address] 02/10/2025 9:00 AM EDT Office Visit [facility] Hematology/BMT and Cellular Therapy Program [address] [place] [address] [place] [phone] Elaina Boss, ARAM 800 [facility] Cancer [address] [address] 02/10/2025 10:30 AM EDT Appointment [facility] 1 [address] [place] [address] 02/11/2025 2:00 PM EDT Appointment [facility] 1 [address] [place] [address] 02/12/2025 2:00 PM EDT Appointment [facility] 1 [address] [place] [address] 02/13/2025 2:00 PM EDT Appointment [facility] 1 [address] [place] [address] 02/14/2025 2:00 PM EDT Appointment [facility] 1 [address] [place] [address] 03/10/2025 8:30 AM EDT Clinical Support [facility] Hematology/BMT and Cellular Therapy Program [address] [phone] 03/10/2025 9:00 AM EDT Office Visit [facility] Hematology/BMT and Cellular Therapy Program [address] [phone] Isaura Wynn, CHAR FILTER TANK TENDER 800 [facility] Cancer [address] [phone] 03/10/2025 11:20 AM EDT Office Visit [facility] Head[facility] Neck & Respiratory 800 [facility], 2nd [place] [address] Elsa Razo, CHAR FILTER TANK TENDER 800 [place] [phone] documented as of this encounter Visit Diagnoses [...] documented as of this encounter Care Teams Salvage Supervisor Relationship Specialty Start Date End Date Zhao Harris MD [address] [place] [address] PCP - General 12/03/20 documented as of this encounter
--- OUTSIDE RECORDS SUMMARY | 2024-12-17 08:23 | XMS_ITS | Encounter Summary ---
Author Organization [facility] Address [address] [place] [address] Care Team Providers Care It Applications Manager Name Role Phone Zhao Harirs MD Primary Care Provider + [phone] Reason for Visit * Episode Based Medications (Routine) - Closed Specialty Diagnoses / Procedures Referred By Justice mcgee Referred To Contact Diagnoses Myelodysplasia (myelodysplastic syndrome) (CMS/HCC) Procedures Azacitidine Daily x 7 / Venetoclax Every 28 Days Virgen Vargas MD 800 [facility] [address] [address] Phone: tel: fax: Virgen Vargas MD [address] [address] Phone: tel: fax: Referral ID Status Reason Start Date Expiration Date Visits Re quested Visits Authorized [id number] Closed 10/20/2024 04/21/2026 1 91 Encounter Details Date Type Department Care Team (Latest Contact Info) Description 12/17/2024 8:23 AM EDT - 12/17/2024 11:59 PM EDT Hospital Encounter [facility] H Infusion 800 [place] [phone] Myelodysplasia (myelodysplastic syndrome) (CMS/HCC) (Primary Dx); Thrombocytopenia [...] drink first t manav in the morning (EYE-GENERAL MAINTENANCE HELPER) to steady your nerves or to [...] 5 MG tabletIndications :Coronary artery disease involving assiniboine and sioux heart with angina pectoris, unspecified vessel or lesion type (CMS/HCC),Hyperte nsion, unspecified type Take 1 tablet (5 mg) by mouth daily. 90 tablet 3 09/11/2024 HYDROcodone-aceta minophen ([place]) 5-325 MG tablet Take 1 tablet by [...] MG SL tabletIndications :Coronary artery disease involving assiniboine and sioux heart with angina pectoris, unspecified vessel [...] Appointment [facility] A Interventional Radiology [address] [place] [address] 02/10/2025 8:30 AM EDT Clinical Support [facility] Hematology/BMT and Cellular Therapy Program [address] [address] 02/10/2025 9:00 AM EDT Office Visit [facility] Hematology/BMT and Cellular Therapy Program [address] [address] Elaina Boss, ARAM 800 [facility] [address] [place] [phone] 02/10/2025 10:30 AM EDT Appointment [facility] Infusion Clinic 1 [address] [place] [address] 02/11/2025 2:00 PM EDT Appointment [facility] Infusion [facility] 1 [address] [place] [address] 02/12/2025 2:00 PM EDT Appointment [facility] Infusion [facility] 1 [address] [place] [address] 02/13/2025 2:00 PM EDT Appointment [facility] Infusion Clinic 1 [address] [place] [address] 02/14/2025 2:00 PM EDT Appointment [facility] Infusion [facility] 1 [address] [place] [address] 03/10/2025 8:30 AM EDT Clinical Support [facility] Hematology/BMT and Cellular Therapy Program [address] [address] 03/10/2025 9:00 AM EDT Office Visit [facility] Hematology/BMT and Cellular Therapy Program [address] [address] Isaura Wynn, ABALONE SHELLER 800 [facility] [address] [place] [phone] 03/10/2025 11:20 AM EDT Office Visit Pav CC Head, Neck & Respiratory 800 [facility], 2nd [place] [address] Elsa Razo, ABALONE SHELLER 800 [place] [phone] documented as of this encounter Results * [...] Sun12/17/24 at 0915, RoutineIndications:Myelodyspla haim (myelodysplastic syndrome) ([facility]/HCC) Given 12/17/2024 8:54 AM EDT 16 mg [...] documented as of this encounter Care Teams It Applications Manager Relationship Specialty Start Date End Date Zhao Harris MD [address] [place] [address] PCP - General 12/03/20 documented as of this encounter
--- OUTSIDE RECORDS SUMMARY | 2024-12-18 08:30 | XMS_ITS | Encounter Summary ---
Author Organization [facility] Address [address] [place] [address] Care Team Providers Care Roofing Applicator Name Role Phone Zhao Harris MD Primary Care Provider + [phone] Reason for Visit * Episode Based Medications (Routine) - Closed Specialty Diagnoses / Procedures Referred By Justice mcgee Referred To Contact Diagnoses Myelodysplasia (myelodysplastic syndrome) (CMS/HCC) Procedures Azacitidine Daily x 7 / Venetoclax Every 28 Days Virgen Vargas MD [address] [address] Phone: tel: fax: Virgen Vargas MD [address] [address] Phone: tel: fax: Referral ID Status Reason Start Date Expiration Date Visits Re quested Visits Authorized [id number] Closed 10/20/2024 04/21/2026 1 91 Encounter Details Date Type Department Care Team (Latest Contact Info) Description 12/18/2024 8:30 AM EDT - 12/18/2024 9:45 AM EDT Hospital Encounter [facility] H Infusion [address] [place] [phone] Myelodysplasia (myelodysplastic syndrome) (CMS/HCC) (Primary Dx); Thrombocytopenia [...] drink first t manav in the morning (EYE-STRATEGIC PARTNERSHIP REPRESENTATIVE) to steady your nerves or to [...] daily. 90 tablet 3 09/11/2024 HYDROcodone-aceta minophen ([place]) 5-325 MG tablet Take 1 tablet by [...] Appointment [facility] Interventional Radiology [address] [place] [address] 02/10/2025 8:30 AM EDT Clinical Support [facility] Hematology/BMT and Cellular Therapy Program [address] [phone] 02/10/2025 9:00 AM EDT Office Visit [facility] Hematology/BMT and Cellular Therapy Program [address] [phone] Elaina Boss, [place] 800 [facility] [address] [place] [phone] 02/10/2025 10:30 AM EDT Appointment [facility] 1 [address] [place] [address] 02/11/2025 2:00 PM EDT Appointment [facility] 1 [address] [place] [address] 02/12/2025 2:00 PM EDT Appointment [facility] 1 [address] [place] [address] 02/13/2025 2:00 PM EDT Appointment [facility] 1 [address] [place] [address] 02/14/2025 2:00 PM EDT Appointment [facility] 1 [address] [place] [address] 03/10/2025 8:30 AM EDT Clinical Support [facility] Hematology/BMT and Cellular Therapy Program [address] [address] 03/10/2025 9:00 AM EDT Office Visit [facility] Hematology/BMT and Cellular Therapy Program [address] [phone] Isaura Wynn, PIG MACHINE SUPERVISOR 800 [facility] [address] [phone] 03/10/2025 11:20 AM EDT Office Visit [facility] Head[facility] Neck [facility] Respiratory 800 [facility], [address]nd [place] [address] Elsa Razo B, PIG MACHINE SUPERVISOR [address] [place] [address] documented as of this encounter [...] METHOD 12/18/2024 11:06 AM EDT [facility] Blood Blood sample taken from central line / Unknown Venipuncture / Unknown 12/18/2024 10:55 AM EDT 12/18/2024 11:03 AM EDT us Virgen Vargas MD LAB BLOOD ORDERABLES Final Re sult [facility] [address] [place] [address] * Transfuse platelets (12/18/2024 10:52 AM EDT) Kayli Daly Bhavesh CHIU BLOOD TRANSFUSION ORDERA BLES Final Result * Transfuse platelets: 1 Units (12/18/2024 10:52 AM EDT) Kayli Daly Bhavesh CHIU BLOOD TRANSFUSION ORDERA BLES Final Result * Prepare Leukocyte Reduced Platelets: 1 Units (12/18/2024 9:45 AM EDT) Product Code C8120P20 BLOO D BANK Dispense Status Transfused BLOOD BANK Blood Expiration Date [id number] BLOOD BANK Unit Number [id number] CH B LOOD BANK Product Blood Type 6200 BLOOD BANK Blood Type A+ BLOOD BANK Blood Venous blood specimen / Unknown Kayli Daly Bhavesh [facility]IU BLOOD BANK PRODUCT ORDER VIKAS Final Result Performing Organization Address City/State/[facility] de Phone Number BLOOD BANK [address] * (ABNORMAL) Comprehensive Metabolic Panel, Plasma (12/18/2024 9:14 AM EDT) Glucose, Plasma 108(H) 74 - 99 mg/dL 12/18/2024 9:51 AM EDT [facility] BUN, Plasma 10 8 - 23 mg/dL 12/18/2024 9:51 AM EDT [facility] Creatinine, Plasma 0.80 0.70 - 1.20 mg/dL 12/18/2024 9:51 AM EDT [facility] BUN/Creatinine Ratio 13 12/18/2024 9:51 AM EDT [facility] Sodium, Plasma 139 136 - 145 mmol/L 12/18/2024 9:51 AM EDT [facility] Potassium, Plasma 4.4 3.6 - 4.9 mmol/L 12/18/2024 9:51 AM EDT [facility] Chloride, Plasma 108(H) 97 - 107 mmol/L 12/18/2024 9:51 AM EDT [facility] CO2, Plasma 22 22 - 29 mmol/L 12/18/2024 9:51 AM EDT [facility] Anion Gap 9 6 - 16 mmol/L 12/18/2024 9:51 AM EDT [facility] Total Calcium, Plasma 8.8(L) 8.9 - 10.2 mg/dL 12/18/2024 9:51 AM EDT [facility] Total Protein 6.8 6.3 - 7.9 g/dL 12/18/2024 9:51 AM EDT [facility] Albumin, Plasma 3.9 3.5 - 5.2 g/dL 12/18/2024 9:51 AM EDT [facility] AST, Plasma 16 10 - 50 U/L 12/18/2024 9:51 AM EDT [facility] ALT, Plasma 16 10 - 50 U/L 12/18/2024 9:51 AM EDT [facility] Alkaline Phosphatase, Plasma 83 40 - 115 U/L 12/18/2024 9:51 AM EDT [facility] Total Bilirubin, Plasma 0.6 0.2 - 1.1 mg/dL 12/18/2024 9:51 AM EDT [facility] eGFRcr 95.8 mL/min/1.7 3m*2 12/18/2024 9:51 AM EDT [facility] Comment:Reported eGFRcr in m L/min/1.73m2 is based the CKD-EPI 2020 equation that does not use a race coefficient. Blood Blood sample taken from central line / Unknown Venipuncture / Unknown 12/18/2024 9:14 AM EDT 12/18/2024 9:20 AM EDT us Virgen Vargas MD LAB BLOOD ORDERABLES Final Re sult [facility] [address] [place] [address] * (ABNORMAL) CBC and differential (12/18/2024 9:14 AM EDT) WBC Count 0.51(LL) 3.70 - 10.30 10*3/uL LAB HEMATOLOGY METHOD 12/18/2024 10:49 AM EDT [facility] RBC Count 2.50(L) 4.60 - 6.10 10*6/uL LAB HEMATOLOGY METHOD 12/18/2024 10:49 AM EDT [facility] HGB 8.1(L) 13.7 - 17.5 g/dL LAB HEMATOLOGY METHOD 12/18/2024 10:49 AM EDT [facility] HCT 21.9(L) 40.0 - 51.0 % LAB HEMATOLOGY METHOD 12/18/2024 10:49 AM EDT [facility] Platelet Count 6(LL) 155 - 369 10*3/uL LAB HEMATOLOGY METHOD 12/18/2024 10:49 AM EDT [facility] MCV 88 79 - 98 fL LAB HEMATOLOGY METHOD 12/18/2024 10:49 AM EDT [facility] MCH 32.4(H) 26.0 - 32.0 pg LAB HEMATOLOGY METHOD 12/18/2024 10:49 AM EDT [facility] MCHC 37.0(H) 30.7 - 35.5 g/dL LAB HEMATOLOGY METHOD 12/18/2024 10:49 AM EDT [facility] RDW 16.7(H) 11.5 - 14.5 % LAB HEMATOLOGY METHOD 12/18/2024 10:49 AM EDT [facility] MPV LAB HEMATOLOGY METHOD 12/18/2024 10:49 AM EDT [facility] Comment:Not Measured nRBC 0.0 <=0.0 per 100 WBCs LAB HEMATOLOGY METHOD 12/18/2024 10:49 AM EDT [facility] Differential Type Automated LAB HEMATOLOGY METHOD 12/18/2024 10:49 AM EDT [facility] Neutrophils % 6 % LAB HEMATOLOGY METHOD 12/18/2024 10:49 AM EDT [facility] Lymphocytes % 90 % LAB HEMATOLOGY METHOD 12/18/2024 10:49 AM EDT [facility] Monocytes % 4 % LAB HEMATOLOGY METHOD 12/18/2024 10:49 AM EDT [facility] Eosinophils % 0 % LAB HEMATOLOGY METHOD 12/18/2024 10:49 AM EDT [facility] Basophils % 0 % LAB HEMATOLOGY METHOD 12/18/2024 10:49 AM EDT [facility] Immature Granulocytes % 0 % LAB HEMATOLOGY METHOD 12/18/2024 10:49 AM EDT [facility] Neutrophils Absolute 0.03(LL) 1.60 - 6.10 10*3/uL LAB HEMATOLOGY METHOD 12/18/2024 10:49 AM EDT [facility] Lymphocytes Absolute 0.46(L) 1.20 - 3.90 10*3/uL LAB HEMATOLOGY METHOD 12/18/2024 10:49 AM EDT [facility] Monocytes Absolute 0.02(L) 0.30 - 0.90 10*3/uL LAB HEMATOLOGY METHOD 12/18/2024 10:49 AM EDT [facility] Eosinophils Absolute 0.00 0.00 - 0.50 10*3/uL LAB HEMATOLOGY METHOD 12/18/2024 10:49 AM EDT [facility] Basophils Absolute 0.00 0.00 - 0.10 10*3/uL LAB HEMATOLOGY METHOD 12/18/2024 10:49 AM EDT [facility] Immature Granulocytes Absolute 0.00 0.00 - 0.06 10*3/uL LAB HEMATOLOGY METHOD 12/18/2024 10:49 AM EDT [facility] Blood Blood sample taken from central line / Unknown Venipuncture / Unknown 12/18/2024 9:14 AM EDT 12/18/2024 9:20 AM EDT Narrative [facility] - 12/18/2024 10:49 AM EDT Therapeutic decision making should be based on absolute values, rather than percentages. us Christina Ramos MD LAB BLOOD ORDERABLES Final Resul t Performing Organization Address City/State/[place] Co de Phone Number [facility] [address] [place] [address] * Exception to Standard Practice, Pathologist Interpretation [...] ORDERAB LES Final Result Performing Organization Address City/State/[place] Co de Phone Number BLOOD BANK [address] documented in this encounter Visit [...] documented as of this encounter Care Teams Roofing Applicator Relationship Specialty Start Date End Date Zhao Harris MD [address] [place] [address] [place] [address] PCP - General 12/03/20 documented as of this encounter
--- OUTSIDE RECORDS SUMMARY | 2024-12-18 09:46 | XMS_ITS | Encounter Summary ---
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 90 tablet 3 09/11/2024 HYDROcodone-aceta minophen ([place]) 5-325 MG tablet Take 1 tablet by [...] MG SL tabletIndications :Coronary artery disease involving [place] heart with angina pectoris, unspecified vessel or [...] Appointment PAV A Interventional Radiology [address] [place] [address] 02/10/2025 8:30 AM EDT Clinical Support PAV Hematology/BMT and Cellular Therapy Program [address] [address] 02/10/2025 9:00 AM EDT Office Visit PAV Hematology/BMT and Cellular Therapy Program [address] [address] Elaina Boss, PA 800 [facility] [address] [place] [address] 02/10/2025 10:30 AM EDT Appointment [facility] Infusion Clinic 1 [address] [place] [address] 02/11/2025 2:00 PM EDT Appointment [facility] Infusion Clinic 1 [address] [place] [address] 02/12/2025 2:00 PM EDT Appointment [facility] Infusion Clinic 1 [address] [place] [address] 02/13/2025 2:00 PM EDT Appointment [facility] Infusion Clinic 1 [address] [place] [address] 02/14/2025 2:00 PM EDT Appointment [facility] Infusion Clinic 1 [address] [place] [address] 03/10/2025 8:30 AM EDT Clinical Support PAV Hematology/BMT and Cellular Therapy Program [address] [address] 03/10/2025 9:00 AM EDT Office Visit PAV Hematology/BMT and Cellular Therapy Program [address] [phone] Isaura Wynn, CHARGE ENTRY 800 [facility] [address] [place] [address] 03/10/2025 11:20 AM EDT Office Visit Pav CC Head, Neck & Respiratory 800 [facility], [address] [place] [address] Elsa Razo, CHARGE ENTRY 800 [place] [address] documented as of this encounter Visit Diagnoses [...] documented as of this encounter Care Teams Desk Interviewer Relationship Specialty Start Date End Date Zhao Harris MD [address] [place] [address] PCP - General 12/03/20 documented as of this encounter
--- OUTSIDE RECORDS SUMMARY | 2024-12-19 08:30 | XMS_ITS | Encounter Summary ---
Author Organization [facility] Address [address] [place] [address] Care Team Providers Care Office Nurse Name Role Phone Zhao Harris MD Primary Care Provider + [phone] Reason for Visit * Episode Based Medications (Routine) - Closed Specialty Diagnoses / Procedures Referred By Justice mcgee Referred To Contact Diagnoses Myelodysplasia (myelodysplastic syndrome) (CMS/HCC) Procedures Azacitidine Daily x 7 / Venetoclax Every 28 Days Virgen Vargas MD [address] [address] Phone: tel: fax: Virgen Vargas MD [address] [address] Phone: tel: fax: Referral ID Status Reason Start Date Expiration Date Visits Re quested Visits Authorized [id number] Closed 10/20/2024 04/21/2026 1 91 Encounter Details Date Type Department Care Team (Latest Contact Info) Description 12/19/2024 8:30 AM EDT - 12/19/2024 11:59 PM EDT Hospital Encounter [facility] Infusion Clinic 2 [address] [place] [phone] Myelodysplasia (myelodysplastic syndrome) (CMS/HCC) (Primary Dx) Discharge [...] first t manav in the morning (EYE-COLLEGE PHYSICS INSTRUCTOR) to steady your nerves or to get [...] 5 MG tabletIndications :Coronary artery disease involving [place] heart with angina pectoris, unspecified vessel or lesion type (CMS/HCC),Hyperte nsion, unspecified type Take 1 tablet (5 mg) by mouth daily. 90 tablet 3 09/11/2024 HYDROcodone-aceta minophen ([place]) 5-325 MG tablet Take 1 tablet by [...] MG SL tabletIndications :Coronary artery disease involving [place] heart with angina pectoris, unspecified vessel or [...] Appointment [facility] Interventional Radiology [address] [place] [address] 02/10/2025 8:30 AM EDT Clinical Support [facility] Hematology/BMT and Cellular Therapy Program [address] [address] 02/10/2025 9:00 AM EDT Office Visit [facility] Hematology/BMT and Cellular Therapy Program [address] [phone] Elaina Boss PA 800 [facility] [address] [place] [address] 02/10/2025 10:30 AM EDT Appointment [facility] Infusion Clinic 1 [address] [place] [address] 02/11/2025 2:00 PM EDT Appointment [facility] Infusion [facility] 1 [address] [place] [address] 02/12/2025 2:00 PM EDT Appointment [facility] Infusion Clinic 1 [address] [place] [address] 02/13/2025 2:00 PM EDT Appointment [facility] Infusion Clinic 1 [address] [place] [address] 02/14/2025 2:00 PM EDT Appointment [facility] 1 [address] [place] [address] 03/10/2025 8:30 AM EDT Clinical Support [facility] Hematology/BMT and Cellular Therapy Program [address] [address] 03/10/2025 9:00 AM EDT Office Visit [facility] Hematology/BMT and Cellular Therapy Program [address] [address] Isaura Wynn, PIPE FITTER WELDING 800 [facility] [address] [place] [phone] 03/10/2025 11:20 AM EDT Office Visit [facility] CC Head, Neck & Respiratory 800 [facility], [address]nd [place] [phone] Elsa Razo, PIPE FITTER WELDING [address] [place] [phone] documented as of this encounter Visit Diagnoses [...] Sun12/19/24 at 0900, RoutineIndications:Myelodyspla haim (myelodysplastic syndrome) ([facility]) Given 12/19/2024 8:41 AM EDT 16 [...] documented as of this encounter Care Teams Office Nurse Relationship Specialty Start Date End Date Zhao Harris MD [address] [place] [address] PCP - General 12/03/20 documented as of this encounter
--- OUTSIDE RECORDS SUMMARY | 2024-12-20 08:08 | XMS_ITS | Encounter Summary ---
Author Organization [facility] Address [address] [place] [address] Care Team Providers Care Cigar Making Supervisor Name Role Phone Zhao Harris MD Primary Care Provider + [phone] Reason for Visit * Episode Based Medications (Routine) - Closed Specialty Diagnoses / Procedures Referred By Justice mcgee Referred To Contact Diagnoses Myelodysplasia (myelodysplastic syndrome) (CMS/HCC) Procedures Azacitidine Daily x 7 / Venetoclax Every 28 Days Virgen Vargas MD [address] [place] [phone] Phone: tel: fax: Virgen Vargas MD [address] [phone] Phone: tel: fax: Referral ID Status Reason Start Date Expiration Date Visits Re quested Visits Authorized [id number] Closed 10/20/2024 04/21/2026 1 91 Encounter Details Date Type Department Care Team (Latest Contact Info) Description 12/20/2024 8:08 AM EDT - 12/20/2024 11:59 PM EDT Hospital Encounter [facility] 1 [address] [place] [phone] Myelodysplasia (myelodysplastic syndrome) (CMS/HCC) (Primary Dx); Thrombocytopenia [...] drink first t manav in the morning (EYE-LAN ADMINISTRATOR) to steady your nerves or to get [...] daily. 90 tablet 3 09/11/2024 HYDROcodone-aceta minophen ([place]) 5-325 MG tablet Take 1 tablet by [...] ([facility] st Contact Info) Description 02/02/2025 11:00 AM EDT Appointment [facility] A Interventional Radiology [address] [place] [address] 02/10/2025 8:30 AM EDT Clinical Support [facility] Hematology/BMT and Cellular Therapy Program [address] [phone] 02/10/2025 9:00 AM EDT Office Visit [facility] H[facility]ology[facility]BMT [facility] Cellular Therapy Program [address] [phone] Elaina Boss PA 800 [facility] [address] [place] [phone] 02/10/2025 10:30 AM EDT Appointment [facility] 1 [address] [place] [phone] 02/11/2025 2:00 PM EDT Appointment [facility] 1 [address] [place] [address] 02/12/2025 2:00 PM EDT Appointment [facility] 1 [address] [place] [phone] 02/13/2025 2:00 PM EDT Appointment [facility] 1 [address] [place] [phone] 02/14/2025 2:00 PM EDT Appointment [facility] 1 [address] [place] [phone] 03/10/2025 8:30 AM EDT Clinical Support [facility] CC Hematology/BMT and Cellular Therapy Program [address] [phone] 03/10/2025 9:00 AM EDT Office Visit [facility] CC Hematology/BMT and Cellular Therapy Program [address] [phone] Isaura Wynn, [place] PROCESS INSPECTOR 800 [facility] [address] [place] [phone] 03/10/2025 11:20 AM EDT Office Visit Pav CC Head, Neck & Respiratory 800 [facility], 2nd [place] [phone] Elsa Razo, IN PROCESS INSPECTOR 800 [place] [phone] documented as of this encounter Procedures Procedure [...] ORDERABLE S Final Result BLOOD BANK 800 [place] [address], * Prepare Leukocyte Reduced RBC: 1 Units, Irradiated (12/20/2024 10:01 AM EDT) Product Code [id number] CH BLOO D BANK Dispense Status Transfused BLOOD BANK Blood Expiration Date [id number] BLOOD BANK Unit Number [id number] CH B LOOD BANK Product Blood Type 9500 BLOOD BANK Blood Type O- BLOOD BANK Crossmatch Compatible BLOOD BANK Other Kayli [facility]IU BLOOD BANK PRODUCT ORDER VIKAS Final Result BLOOD BANK 800 [place] [address], * (ABNORMAL) CBC and differential (12/20/2024 9:00 AM EDT) WBC Count 0.59(LL) 3.70 - 10.30 10*3/uL LAB HEMATOLOGY METHOD 12/20/2024 10:25 AM EDT [facility] RBC Count 2.46(L) 4.60 - 6.10 10*6/uL LAB HEMATOLOGY METHOD 12/20/2024 10:25 AM EDT [facility] HGB 7.8(L) 13.7 - 17.5 g/dL LAB HEMATOLOGY METHOD 12/20/2024 10:25 AM EDT [facility] HCT 22.0(L) 40.0 - 51.0 % LAB HEMATOLOGY METHOD 12/20/2024 10:25 AM EDT [facility] Platelet Count 22(L) 155 - 369 10*3/uL LAB HEMATOLOGY METHOD 12/20/2024 10:25 AM EDT [facility] MCV 89 79 - 98 fL LAB HEMATOLOGY METHOD 12/20/2024 10:25 AM EDT [facility] MCH 31.7 26.0 - 32.0 pg LAB HEMATOLOGY METHOD 12/20/2024 10:25 AM EDT [facility] MCHC 35.5 30.7 - 35.5 g/dL LAB HEMATOLOGY METHOD 12/20/2024 10:25 AM EDT [facility] RDW 16.0(H) 11.5 - 14.5 % LAB HEMATOLOGY METHOD 12/20/2024 10:25 AM EDT [facility] MPV 11.3 8.8 - 12.5 fL LAB HEMATOLOGY METHOD 12/20/2024 10:25 AM EDT [facility] nRBC 0.0 <=0.0 per 100 WBCs LAB HEMATOLOGY METHOD 12/20/2024 10:25 AM EDT [facility] Differential Type Automated LAB HEMATOLOGY METHOD 12/20/2024 10:25 AM EDT [facility] Neutrophils % 5 % LAB HEMATOLOGY METHOD 12/20/2024 10:25 AM EDT [facility] Lymphocytes % 92 % LAB HEMATOLOGY METHOD 12/20/2024 10:25 AM EDT [facility] Monocytes % 3 % LAB HEMATOLOGY METHOD 12/20/2024 10:25 AM EDT [facility] Eosinophils % 0 % LAB HEMATOLOGY METHOD 12/20/2024 10:25 AM EDT [facility] Basophils % 0 % LAB HEMATOLOGY METHOD 12/20/2024 10:25 AM EDT [facility] Immature Granulocytes % 0 % LAB HEMATOLOGY METHOD 12/20/2024 10:25 AM EDT [facility] Neutrophils Absolute 0.03(LL) 1.60 - 6.10 10*3/uL LAB HEMATOLOGY METHOD 12/20/2024 10:25 AM EDT [facility] Lymphocytes Absolute 0.54(L) 1.20 - 3.90 10*3/uL LAB HEMATOLOGY METHOD 12/20/2024 10:25 AM EDT [facility] Monocytes Absolute 0.02(L) 0.30 - 0.90 10*3/uL LAB HEMATOLOGY METHOD 12/20/2024 10:25 AM EDT [facility] Eosinophils Absolute 0.00 0.00 - 0.50 10*3/uL LAB HEMATOLOGY METHOD 12/20/2024 10:25 AM EDT [facility] Basophils Absolute 0.00 0.00 - 0.10 10*3/uL LAB HEMATOLOGY METHOD 12/20/2024 10:25 AM EDT [facility] Immature Granulocytes Absolute 0.00 0.00 - 0.06 10*3/uL LAB HEMATOLOGY METHOD 12/20/2024 10:25 AM EDT [facility] Blood Blood sample taken from central line / Unknown (Central Line) Existing Catheter / Unknown 12/20/2024 9:00 AM EDT 12/20/2024 9:13 AM EDT Narrative [facility] - 12/20/2024 10:25 AM EDT Therapeutic decision making should be based on absolute values, rather than percentages. us Christina Ramos MD LAB BLOOD ORDERABLES Final Resul t [facility] [address] [place] [address] documented in this encounter Visit Diagnoses Diagnosis [...] as of this encounter Care Teams Cigar Making Supervisor Relationship Specialty Start Date End Date Zhao Harris MD [address] [place] [address] [place] [address] PCP - General 12/03/20 documented as of this encounter
--- OUTSIDE RECORDS SUMMARY | 2024-12-21 08:30 | XMS_ITS | Encounter Summary ---
Author Organization [facility] Address [address] [place] [address] Care Team Providers Care Quality Control Checker Name Role Phone Zhao Harris MD Primary Care Provider + [phone] Reason for Visit * Episode Based Medications (Routine) - Closed Specialty Diagnoses / Procedures Referred By Justice mcgee Referred To Contact Diagnoses Myelodysplasia (myelodysplastic syndrome) (CMS/HCC) Procedures Azacitidine Daily x 7 / Venetoclax Every 28 Days Virgen Vargas MD [address] [address] Phone: tel: fax: Virgen Vargas MD [address] [address] Phone: tel: fax: Referral ID Status Reason Start Date Expiration Date Visits Re quested Visits Authorized [id number] Closed 10/20/2024 04/21/2026 1 91 Encounter Details Date Type Department Care Team (Latest Contact Info) Description 12/21/2024 8:30 AM EDT - 12/21/2024 11:59 PM EDT Hospital Encounter [facility] Infusion Clinic [address] [place] [phone] Myelodysplasia (myelodysplastic syndrome) (CMS/HCC) (Primary Dx) Discharge [...] drink first t manav in the morning (EYE-DISK RECORDIST) to steady your nerves or to get [...] 5 MG tabletIndications :Coronary artery disease involving [place] heart with angina pectoris, unspecified vessel or lesion type (CMS/HCC),Hyperte nsion, unspecified type Take 1 tablet (5 mg) by mouth daily. 90 tablet 3 09/11/2024 HYDROcodone-aceta minophen ([place]) 5-325 MG tablet Take 1 tablet by [...] MG SL tabletIndications :Coronary artery disease involving [place] heart with angina pectoris, unspecified vessel or [...] [facility] Interventional Radiology [address] [place] [address] 02/10/2025 8:30 AM EDT Clinical Support [facility] Hematology/BMT and Cellular Therapy Program [address] [place] [phone] 02/10/2025 9:00 AM EDT Office Visit [facility] Hematology/BMT and Cellular Therapy Program [address] [phone] Elaina Boss, ARAM 800 [facility] [address] [place] [phone] 02/10/2025 10:30 AM EDT Appointment [facility]fusion [facility] 1 [address] [place] [address] 02/11/2025 2:00 PM EDT Appointment [facility] 1 [address] [place] [address] 02/12/2025 2:00 PM EDT Appointment [facility] 1 [address] [place] [address] 02/13/2025 2:00 PM EDT Appointment [facility] [address] [place] [address] 02/14/2025 2:00 PM EDT Appointment [facility] Infusion Clinic [address] [place] [address] 03/10/2025 8:30 AM EDT Clinical Support [facility] Hematology/BMT and Cellular Therapy Program [address] [address] 03/10/2025 9:00 AM EDT Office Visit [facility] Hematology/BMT and Cellular Therapy Program [address] [phone] Isaura Wynn, MEDTRONICS TECHNICIAN 800 [facility] [address] [place] [phone] 03/10/2025 11:20 AM EDT Office Visit [facility] Res[facility] 800 [facility], 2nd [place] [phone] Elsa Razo, MEDTRONICS TECHNICIAN [address] [place] [phone] documented as of this encounter Visit Diagnoses [...] documented as of this encounter Care Teams Quality Control Checker Relationship Specialty Start Date End Date Zhao Harris MD [address] [place] [address] PCP - General 12/03/20 documented as of this encounter
--- OUTSIDE RECORDS SUMMARY | 2024-12-22 08:24 | XMS_ITS | Encounter Summary ---
Author Organization [facility] Address [address] [place] [address] Care Team Providers Care Sales Process Manager Name Role Phone Zhao Harris MD Primary Care Provider + [phone] Reason for Visit * Episode Based Medications (Routine) - Closed Specialty Diagnoses / Procedures Referred By Justice mcgee Referred To Contact Diagnoses Myelodysplasia (myelodysplastic syndrome) (CMS/HCC) Procedures Azacitidine Daily x 7 / Venetoclax Every 28 Days Virgen Vargas MD 800 [facility] Cancer [address] [address] Phone: tel: fax: Virgen Vargas MD [address] [address] Phone: tel: fax: Referral ID Status Reason Start Date Expiration Date Visits Re quested Visits Authorized [id number] Closed 10/20/2024 04/21/2026 1 91 Encounter Details Date Type Department Care Team (Latest Contact Info) Description 12/22/2024 8:24 AM EDT - 12/22/2024 9:57 AM EDT Hospital Encounter [facility] H Infusion [address] [place] [phone] Myelodysplasia (myelodysplastic syndrome) (CMS/HCC) (Primary Dx); Thrombocytopenia [...] drink first t manav 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 90 tablet 3 09/11/2024 HYDROcodone-aceta minophen ([place]) 5-325 MG tablet Take 1 tablet by [...] Upcoming Encounters Date Type Department Care Team ([facility] st Contact Info) Description 02/02/2025 11:00 AM EDT Appointment P[facility] A Interventional Radiology [address] [place] [address] 02/10/2025 8:30 AM EDT Clinical Support P[facility] CC Hematology/BMT and Cellular Therapy Program [address] [place] [address] 02/10/2025 9:00 AM EDT Office Visit [facility] Hematology/BMT and Cellular Therapy Program [address] [place] [address] Elaina Boss, ARAM 800 [facility] [address] [place] [phone] 02/10/2025 10:30 AM EDT Appointment [facility] Infusion [facility] 1 [address] [place] [phone] 02/11/2025 2:00 PM EDT Appointment [facility] 1 [address] [place] [address] 02/12/2025 2:00 PM EDT Appointment [facility] 1 [address] [place] [address] 02/13/2025 2:00 PM EDT Appointment [facility] 1 [address] [place] [phone] 02/14/2025 2:00 PM EDT Appointment [facility]fusion [facility] 1 [address] [place] [phone] 03/10/2025 8:30 AM EDT Clinical Support [facility] CC Hematology/BMT and Cellular Therapy Program [address] [phone] 03/10/2025 9:00 AM EDT Office Visit PAV Hematology/BMT and Cellular Therapy Program [address] [phone] Isaura Wynn, SUPERVISOR GRAPHITE 800 [facility] [address] [place] [phone] 03/10/2025 11:20 AM EDT Office Visit Pav CC Head, Neck & Respiratory 800 [facility], 2nd [place] [phone] Elsa Razo, SUPERVISOR GRAPHITE [address] [place] [phone] documented as of this encounter Procedures Procedure [...] (ABNORMAL) Platelet count (12/22/2024 10:57 AM EDT) [facility] Platelet Count 36(L) 155 - 369 10*3/uL LAB HEMATOLOGY METHOD 12/22/2024 11:14 AM EDT [facility] Blood Venous blood specimen / Unknown Venipuncture / Unknown 12/22/2024 10:57 AM EDT 12/22/2024 11:04 AM EDT Virgen Vargas MD LAB BLOOD ORDERABLES Final Re sult [facility] [address] [place] [address] * Prepare Leukocyte Reduced Platelets: 1 Units (12/22/2024 9:44 AM EDT) Pathologist [facility] Product Code [id number] BLOO D BANK Dispense Status Transfused BLOOD BANK Blood Expiration Date [id number] BLOOD BANK Unit Number [id number] B LOOD BANK Product Blood Type 0600 BLOOD BANK Blood Type A- CH BLOOD BANK Blood Venous blood specimen / Unknown us Kayli CHIU BLOOD BANK PRODUCT ORDER VIKAS Final Result BLOOD BANK [address] [place] [address], * (ABNORMAL) CBC and Differential (12/22/2024 8:53 AM EDT) WBC Count 0.50(LL) 3.70 - 10.30 10*3/uL LAB HEMATOLOGY METHOD 12/22/2024 11:33 AM EDT [facility] RBC Count 2.90(L) 4.60 - 6.10 10*6/uL LAB HEMATOLOGY METHOD 12/22/2024 11:33 AM EDT [facility] HGB 8.9(L) 13.7 - 17.5 g/dL LAB HEMATOLOGY METHOD 12/22/2024 11:33 AM EDT [facility] HCT 25.0(L) 40.0 - 51.0 % LAB HEMATOLOGY METHOD 12/22/2024 11:33 AM EDT [facility] Platelet Count 5(LL) 155 - 369 10*3/uL LAB HEMATOLOGY METHOD 12/22/2024 11:33 AM EDT [facility] MCV 86 79 - 98 fL LAB HEMATOLOGY METHOD 12/22/2024 11:33 AM EDT [facility] MCH 30.7 26.0 - 32.0 pg LAB HEMATOLOGY METHOD 12/22/2024 11:33 AM EDT [facility] MCHC 35.6(H) 30.7 - 35.5 g/dL LAB HEMATOLOGY METHOD 12/22/2024 11:33 AM EDT [facility] RDW 15.6(H) 11.5 - 14.5 % LAB HEMATOLOGY METHOD 12/22/2024 11:33 AM EDT [facility] MPV LAB HEMATOLOGY METHOD 12/22/2024 11:33 AM EDT [facility] Comment:Not Measured nRBC 0.0 <=0.0 per 100 WBCs LAB HEMATOLOGY METHOD 12/22/2024 11:33 AM EDT [facility] Differential Type Automated LAB HEMATOLOGY METHOD 12/22/2024 11:33 AM EDT [facility] Neutrophils % 12 % LAB HEMATOLOGY METHOD 12/22/2024 11:33 AM EDT [facility] Lymphocytes % 86 % LAB HEMATOLOGY METHOD 12/22/2024 11:33 AM EDT [facility] Monocytes % 2 % LAB HEMATOLOGY METHOD 12/22/2024 11:33 AM EDT [facility] Eosinophils % 0 % LAB HEMATOLOGY METHOD 12/22/2024 11:33 AM EDT [facility] Basophils % 0 % LAB HEMATOLOGY METHOD 12/22/2024 11:33 AM EDT [facility] Immature Granulocytes % 0 % LAB HEMATOLOGY METHOD 12/22/2024 11:33 AM EDT [facility] Neutrophils Absolute 0.06(LL) 1.60 - 6.10 10*3/uL LAB HEMATOLOGY METHOD 12/22/2024 11:33 AM EDT [facility] Lymphocytes Absolute 0.43(L) 1.20 - 3.90 10*3/uL LAB HEMATOLOGY METHOD 12/22/2024 11:33 AM EDT [facility] Monocytes Absolute 0.01(L) 0.30 - 0.90 10*3/uL LAB HEMATOLOGY METHOD 12/22/2024 11:33 AM EDT [facility] Eosinophils Absolute 0.00 0.00 - 0.50 10*3/uL LAB HEMATOLOGY METHOD 12/22/2024 11:33 AM EDT [facility] Basophils Absolute 0.00 0.00 - 0.10 10*3/uL LAB HEMATOLOGY METHOD 12/22/2024 11:33 AM EDT [facility] Immature Granulocytes Absolute 0.00 0.00 - 0.06 10*3/uL LAB HEMATOLOGY METHOD 12/22/2024 11:33 AM EDT [facility] Blood Venous blood specimen / Unknown Venipuncture / Unknown 12/22/2024 8:53 AM EDT 12/22/2024 8:59 AM [facility]T [facility] 12/22/2024 11:33 AM EDT Therapeutic decision making should be based on absolute values, rather than percentages. us Virgen Vargas MD LAB BLOOD ORDERABLES Final Re sult [facility] [address] [place] [address] * (ABNORMAL) Comprehensive Metabolic Panel, Plasma (12/22/2024 8:53 AM EDT) Glucose, Plasma 107(H) 74 - 99 mg/dL 12/22/2024 9:29 AM EDT [facility] BUN, Plasma 14 8 - 23 mg/dL 12/22/2024 9:29 AM EDT [facility] Creatinine, Plasma 0.93 0.70 - 1.20 mg/dL 12/22/2024 9:29 AM EDT [facility] BUN/Creatinine Ratio 15 12/22/2024 9:29 AM EDT [facility] Sodium, Plasma 136 136 - 145 mmol/L 12/22/2024 9:29 AM EDT [facility] Potassium, Plasma 4.3 3.6 - 4.9 mmol/L 12/22/2024 9:29 AM EDT [facility] Chloride, Plasma 106 97 - 107 mmol/L 12/22/2024 9:29 AM EDT [facility] CO2, Plasma 22 22 - 29 mmol/L 12/22/2024 9:29 AM EDT [facility] Anion Gap 8 6 - 16 mmol/L 12/22/2024 9:29 AM EDT [facility] Total Calcium, Plasma 9.1 8.9 - 10.2 mg/dL 12/22/2024 9:29 AM EDT [facility] Total Protein 7.0 6.3 - 7.9 g/dL 12/22/2024 9:29 AM EDT [facility] Albumin, Plasma 3.9 3.5 - 5.2 g/dL 12/22/2024 9:29 AM EDT [facility] AST, Plasma 16 10 - 50 U/L 12/22/2024 9:29 AM EDT [facility] ALT, Plasma 12 10 - 50 U/L 12/22/2024 9:29 AM EDT [facility] Alkaline Phosphatase, Plasma 83 40 - 115 U/L 12/22/2024 9:29 AM EDT [facility] Total Bilirubin, Plasma 0.7 0.2 - 1.1 mg/dL 12/22/2024 9:29 AM EDT [facility] eGFRcr 88.9 mL/min/1.7 3m*2 12/22/2024 9:29 AM EDT [facility] Comment:Reported eGFRcr in m L/min/1.73m2 is based the CKD-EPI 2020 equation that does not use a race coefficient. Blood Venous blood specimen / Unknown Venipuncture / Unknown 12/22/2024 8:53 AM EDT 12/22/2024 8:59 AM EDT us Virgen Vargas MD LAB BLOOD ORDERABLES Final Re sult [facility] [address] [place] [address] documented in this encounter Visit Diagnoses Diagnosis [...] as of this encounter Care Teams Sales Process Manager Relationship Specialty Start Date End Date Zhao Harris MD [address] [place] [address] PCP - General 12/03/20 documented as of this encounter
--- OUTSIDE RECORDS SUMMARY | 2024-12-22 09:58 | XMS_ITS | Encounter Summary ---
Author Organization Healthcare Address [address] [place] [address] Care Team Providers Care Floor Tiling Professional Name Role Phone Zhao Harris MD Primary Care Provider [phone] Encounter Details Date Type Department Care Team (Latest Contact Info) Description 12/22/2024 9:58 AM EDT - 12/22/2024 11:59 PM EDT Hospital Encounter [facility] Infusion [address] [place] [address] Myelodysplasia (myelodysplastic syndrome) (CMS/HCC) (Primary Dx) Discharge [...] drink first t manav in the morning (EYE-SYRUP MIXER) to steady your nerves or to get [...] 5 MG tabletIndications :Coronary artery disease involving flandreau heart with angina pectoris, unspecified vessel or [...] MG SL tabletIndications :Coronary artery disease involving flandreau heart with angina pectoris, unspecified vessel or [...] Appointment P[facility] A Interventional Radiology [address] [place] [address] 02/10/2025 8:30 AM EDT Clinical Support PAV Hematology/BMT and Cellular Therapy Program [address] [address] 02/10/2025 9:00 AM EDT Office Visit PAV Hematology/BMT and Cellular Therapy Program [address] [address] Elaina Boss, PA 800 [facility] [address] [place] [phone] 02/10/2025 10:30 AM EDT Appointment [facility] 1 [address] [place] [address] 02/11/2025 2:00 PM EDT Appointment [facility] 1 [address] [place] [address] 02/12/2025 2:00 PM EDT Appointment [facility] 1 [address] [place] [address] 02/13/2025 2:00 PM EDT Appointment [facility] 1 [address] [place] [address] 02/14/2025 2:00 PM EDT Appointment [facility] Infusion Clinic 1 [address] [place] [address] 03/10/2025 8:30 AM EDT Clinical Support PAV Hematology/BMT and Cellular Therapy Program [address] [address] 03/10/2025 9:00 AM EDT Office Visit PAV Hematology/BMT and Cellular Therapy Program [address] [address] Isaura Wynn, ESTRELLA 800 [facility] [address] [place] [phone] 03/10/2025 11:20 AM EDT Office Visit Pav CC Head, Neck & Respiratory 800 [facility], 2nd [place] [address] Elsa Razo, QUALITY NURSE 800 [place] [address] documented as of this encounter Visit Diagnoses [...] documented as of this encounter Care Teams Floor Tiling Professional Relationship Specialty Start Date End Date Zhao Harris MD [facility] [address] [address] PCP - General 12/03/20 documented as of this encounter
--- OUTSIDE RECORDS SUMMARY | 2025-01-06 08:30 | XMS_ITS | Encounter Summary ---
Author Organization [facility] Address [address] [place] [address] Care Team Providers Care [employer] Special [employer] Teacher Name Role Phone Zhao aHrris MD Primary Care Provider [phone] Reason for Visit * Reason Comments Labs Encounter Details Date Type Department Care Team ([facility] st Contact Info) Description 01/06/2025 8:30 AM EDT Clinical Support [facility] Hematology/BMT and Cellular Therapy Program [address] [place] [address] [place] [address] Nate Ponce, RN Social History Tobacco Use [...] drink first t manav in the morning (EYE-CRYSTAL LAPPER) to steady your nerves or to get [...] Upcoming Encounters Date Type Department Care Team ([facility] st Contact Info) Description 02/02/2025 11:00 AM EDT Appointment [facility] A Interventional Radiology [address] [place] [address] 02/10/2025 8:30 AM EDT Clinical Support [facility] Hematology/BMT and Cellular Therapy Program [address] [place] [phone] 02/10/2025 9:00 AM EDT Office Visit [facility] Hematology/BMT and Cellular Therapy Program [address] [phone] Elaina Boss, PA 800 [facility] [address] [place] [phone] 02/10/2025 10:30 AM EDT Appointment [facility] Infusion [facility] [address] [place] [address] 02/11/2025 2:00 PM EDT Appointment [facility] 1 [address] [place] [address] 02/12/2025 2:00 PM EDT Appointment [facility] 1 [address] [place] [address] 02/13/2025 2:00 PM EDT Appointment [facility] 1 [address] [place] [address] 02/14/2025 2:00 PM EDT Appointment [facility] 1 [address] [place] [address] 03/10/2025 8:30 AM EDT Clinical Support [facility] CC Hematology/BMT and Cellular Therapy Program 750 [facility] [place] [place] [phone] 03/10/2025 9:00 AM EDT Office Visit [facility] CC Hematology/BMT and Cellular Therapy Program 750 [facility], [address] [place] [phone] Isaura Wynn, SUPERVISOR [employer] 800 [facility] [address] [place] [phone] 03/10/2025 11:20 AM EDT Office Visit Pav CC Head, Neck & Respiratory 800 [facility], 2nd [place] [phone] Elsa Razo, SUPER[employer]OR [employer] [address] [place] [phone] documented as of this encounter Visit Diagnoses [...] documented as of this encounter Care Teams [employer] Special [employer] Teacher Relationship Specialty Start Date End Date Zhao Harris MD [address] [place] [phone] PCP - General 12/03/20 documented as of this encounter
--- OUTSIDE RECORDS SUMMARY | 2025-01-06 09:00 | XMS_ITS | Encounter Summary ---
Author Organization [facility] Address [address] [place] [address] Care Team Providers Care Service Line Coordinator Name Role Phone Zhao Harris MD Primary Care Provider [phone] Reason for Visit * Reason Comments Procedure * Genetic Testing (Routine) - Authorized Specialty Diagnoses / Procedures Referred By Justice mcgee Referred To Contact Lab Diagnoses Myelodysplasia (myelodysplastic syndrome) (CMS/HCC) Procedures Leukemia/Lymphoma - Immunophenotyping by Flow Cytometry Virgen Vargas MD 800 [facility] [address] [address] Phone: tel: fax: Referral ID Status Reason Start Date Expiration Date V isits Requested Visits Authorized [id number] Authorized 12/18/2024 06/19/2026 1 1 Encounter Details Date Type Department Care Team (Latest Contact Info) Description 01/06/2025 9:00 AM EDT Procedure Visit [facility] CC Hematology/BMT and Cellular Therapy Program [address] [place] [address] Kierra Novak APRN 800 [facility] [address] [address] Myelodysplasia (myelodysplastic syndrome) (CMS/HCC) Social [...] first t manav in the morning (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) to steady your nerves or to [...] yes Risks discussed: Bleeding, infection and pain [place] protocol: Procedure explained and questions answered to [...] ([facility] st Contact Info) Description 02/02/2025 11:00 AM EDT Appointment PAV A Interventional Radiology [address] [place] [address] 02/10/2025 8:30 AM EDT Clinical Support P[facility] Hematology/BMT and Cellular Therapy Program [address] [address] 02/10/2025 9:00 AM EDT Office Visit [facility] Hematology/BMT and Cellular Therapy Program [address] [address] Elaina Boss PA 800 [facility] [address] [place] [address] 02/10/2025 10:30 AM EDT Appointment [facility] Infusion Clinic 1 [address] [place] [address] 02/11/2025 2:00 PM EDT Appointment [facility] Infusion [facility] 1 [address] [place] [address] 02/12/2025 2:00 PM EDT Appointment [facility] Infusion [facility] 1 [address] [place] [address] 02/13/2025 2:00 PM EDT Appointment [facility] Infusion [facility] 1 [address] [place] [address] 02/14/2025 2:00 PM EDT Appointment [facility] Infusion [facility] 1 [address] [place] [address] 03/10/2025 8:30 AM EDT Clinical Support [facility] CC Hematology/BMT and Cellular Therapy Program [address] [address] 03/10/2025 9:00 AM EDT Office Visit [facility] CC Hematology/BMT and Cellular Therapy Program [address] [address] Isaura Wynn, PARENT AIDE 800 [facility] [address] [place] [address] 03/10/2025 11:20 AM EDT Office Visit Pav CC Head, Neck & Respiratory 800 [facility], [address]nd [place] [address] Elsa Razo, PARENT AIDE [address] [place] [address] documented as of this encounter Procedures Procedure [...] yes Risks discussed: Bleeding, infection and pain [place] protocol: Procedure explained and questions answered to [...] Cytometry (01/06/2025 9:48 AM EDT) Pathologist [facility] Clinical Indication AML 01/07/2025 10:[address] [facility] Flow Cytometry Interpretation APPROXIMATELY 16% MYELOID BLASTS; EXPRESSING CD34, CD117, CD13, CD33, HLA-DR, PARTIAL CD7, PARTIAL CD123, VARIABLE CD38, AND MODERATE CD45, SEE COMMENT, BONE MARROW ASPIRATE. 01/07/2025 10:18 AM EDT [facility] Comments Specimen viability [...] disease. Final interpretation requires morphologic correlation (BM [id number]). The following antibodies were used in this analysis: CD45, CD2, CD3, CD4, CD5, CD7, CD8, CD10, CD13, CD14, CD15, CD16, CD19, CD20, CD33, CD34, CD38, CD56, CD117, HLA-DR, kappa surface light chains, lambda surface light chains, CD123 01/07/2025 10:18 AM [facility] Disclaimer This test was developed and its performance characteristics determined by the Immuno-Molecular Pathology Laboratory at the [facility]. It has not been cleared [...] complexity clinical laboratory testing. 01/07/2025 10:18 AM [facility] Pathologist Signature Reviewed by: Tessie Peralta MD 01/07/2025 10:18 AM [facility] MRD Indicated Test Not Indicated 06/ 10:18 AM EDT [facility] Bone Marrow Specimen from bone marrow obtained by aspiration / Unknown Non-blood Collection / Unknown 01/06/2025 9:48 AM EDT 01/06/2025 11:20 AM EDT Virgen Vargas MD LAB FLOW CYTOMETRY ORDERABLES Final Result [facility] [address] [place] [address] * Bone marrow exam (01/06/2025 9:48 AM EDT) Case Report Bone Marrow Case: [id number] Authorizing Provider: Virgen Vargas MD Collected: 01/06/2025 0948 Ordering Location: [facility] Hematology/BMT and Received: 01/06/2025 1108 Cellular Therapy Program Pathologist: Tessie Peralta MD Specimens: A) - Bone Marrow Aspirate, left B) - Bone Marrow Biopsy, left C) - Peripheral Blood for Bone Marrow 6:13 PM EDT [facility] Final Diagnosis BONE MARROW, LEFT POSTERIOR ILIAC CREST, (PERIPHERAL SMEAR, ASPIRATE SMEARS, AND CORE BIOPSY): - MILDLY HYPOCELLULAR BONE MARROW WITH ERYTHROID HYPERPLASIA, MARKEDLY REDUCED GRANULOPOIESIS, PERSISTENT DYSPOIESIS AND 10% BLASTS, SEE COMMENT. 6:13 PM EDT [facility] at 1813 EDT Comment The marrow cellularity is composed of erythroid cells with markedly reduced granulopoiesis and decreased megakaryocytes. Persistent trilineage dyspoiesis is noted. The blast percentages are higher by flow cytometry analysis as the majority of marrow cellularity consists of erythroid precursors that are removed by flow cytometry. 6:13 PM EDT [facility] Clinical Information AML 12/22 6:13 PM EDT [facility] CBC and Differential PERIPHERAL [...] circulating blasts are identified. 6:13 PM EDT [facility] Bone Marrow Differential BONE MARROW DIFFERENTIAL: 400 cells Normal Patient Neutrophils 15-50 0 Metamyelocytes 4-19 1 Myelocytes 1-18 2 Promyelocytes 1-8 1 Blasts 0-2 10 Monocytes 0-5 0 Erythroid 16-38 73 Lymphocytes 3-24 4 Eosinophils 0-6 1 Basophils 0-2 0 Plasma cells 0-4 8 Other 6:[address] [facility] Bone Marrow Aspirate and Biopsy Core [...] developed by and are performed at the [facility], [address] [place] [address]. All tests reported here, except those addressing [...] on decalcified specimens. 5 6:13 PM EDT [facility] Flow Cytometry Interpretation APPROXIMATELY 16% MYELOID BLASTS; EXPRESSING CD34, CD117, CD13, CD33, HLA-DR, PARTIAL CD7, PARTIAL CD123, VARIABLE CD38, AND MODERATE CD45, SEE COMMENT, BONE MARROW ASPIRATE ([id number]) 5 6:13 PM EDT [facility] Gross Description B. LEFT A single specimen is received in formalin labeled bone marrow biopsy left posterior iliac crest and consists of 2 piece(s) of tissue measuring 0.8/0.2 cm in length 0.2 cm in diameter. The specimen is submitted in to Histology for decalcification and routine processing. Cold Time: <1m 5 6:13 PM EDT [facility] Note: A resident was involved in the service. I attest I examined the relevant preparations for the specimens and confirmed the diagnosis or interpretation. 5 6:13 PM EDT [facility] Bone Marrow Peripheral blood [...] MD LAB PATHOLOGY ORDERABLES Terri lara Result [facility] [address] [place] [address] * (ABNORMAL) Comprehensive metabolic panel (01/06/2025 8:49 AM EDT) Glucose, Plasma 100(H) 74 - 99 mg/dL 01/06/2025 9:34 AM EDT [facility] BUN, Plasma 8 8 - 23 mg/dL 01/06/2025 9:34 AM EDT [facility] Creatinine, Plasma 0.76 0.70 - 1.20 mg/dL 01/06/2025 9:34 AM EDT [facility] BUN/Creatinine Ratio 11 01/06/2025 9:34 AM EDT [facility] Sodium, Plasma 138 136 - 145 mmol/L 01/06/2025 9:34 AM EDT [facility] Potassium, Plasma 4.3 3.6 - 4.9 mmol/L 01/06/2025 9:34 AM EDT [facility] Chloride, Plasma 109(H) 97 - 107 mmol/L 01/06/2025 9:34 AM EDT [facility] CO2, Plasma 21(L) 22 - 29 mmol/L 01/06/2025 9:34 AM EDT [facility] Anion Gap 8 6 - 16 mmol/L 01/06/2025 9:34 AM EDT [facility] Total Calcium, Plasma 8.8(L) 8.9 - 10.2 mg/dL 01/06/2025 9:34 AM EDT [facility] Total Protein 6.6 6.3 - 7.9 g/dL 01/06/2025 9:34 AM EDT [facility] Albumin, Plasma 3.9 3.5 - 5.2 g/dL 01/06/2025 9:34 AM EDT [facility] AST, Plasma 25 10 - 50 U/L 01/06/2025 9:34 AM EDT [facility] ALT, Plasma 28 10 - 50 U/L 01/06/2025 9:34 AM EDT [facility] Alkaline Phosphatase, Plasma 83 40 - 115 U/L 01/06/2025 9:34 AM EDT [facility] Total Bilirubin, Plasma 0.5 0.2 - 1.1 mg/dL 01/06/2025 9:34 AM EDT [facility] eGFRcr 97.3 mL/min/1.7 3m*2 01/06/2025 9:34 AM EDT [facility] Comment:Reported eGFRcr in m L/min/1.73m2 is based the CKD-EPI 2020 equation that does not use a race coefficient. Blood Venous blood specimen / Unknown Venipuncture / Unknown 01/06/2025 8:49 AM EDT 01/06/2025 9:01 AM EDT us Christina Ramos MD LAB BLOOD ORDERABLES Final Resul t [facility] [address] [place] [address] * (ABNORMAL) CBC and differential (01/06/2025 8:49 AM EDT) WBC Count 0.59(LL) 3.70 - 10.30 10*3/uL LAB HEMATOLOGY METHOD 01/06/2025 11:36 AM EDT [facility] RBC Count 2.95(L) 4.60 - 6.10 10*6/uL LAB HEMATOLOGY METHOD 01/06/2025 11:36 AM EDT [facility] HGB 8.8(L) 13.7 - 17.5 g/dL LAB HEMATOLOGY METHOD 01/06/2025 11:36 AM EDT [facility] HCT 25.3(L) 40.0 - 51.0 % LAB HEMATOLOGY METHOD 01/06/2025 11:36 AM EDT [facility] Platelet Count 75(L) 155 - 369 10*3/uL LAB HEMATOLOGY METHOD 01/06/2025 11:36 AM EDT [facility] MCV 86 79 - 98 fL LAB HEMATOLOGY METHOD 01/06/2025 11:36 AM EDT [facility] MCH 29.8 26.0 - 32.0 pg LAB HEMATOLOGY METHOD 01/06/2025 11:36 AM EDT [facility] MCHC 34.8 30.7 - 35.5 g/dL LAB HEMATOLOGY METHOD 01/06/2025 11:36 AM EDT [facility] RDW 14.6(H) 11.5 - 14.5 % LAB HEMATOLOGY METHOD 01/06/2025 11:36 AM EDT [facility] MPV 10.7 8.8 - 12.5 fL LAB HEMATOLOGY METHOD 01/06/2025 11:36 AM EDT [facility] nRBC 3.4(H) <=0.0 per 100 WBCs LAB HEMATOLOGY METHOD 01/06/2025 11:36 AM EDT [facility] Differential Type Automated LAB HEMATOLOGY METHOD 01/06/2025 11:36 AM EDT [facility] Neutrophils % 5 % LAB HEMATOLOGY METHOD 01/06/2025 11:36 AM EDT [facility] Lymphocytes % 88 % LAB HEMATOLOGY METHOD 01/06/2025 11:36 AM EDT [facility] Monocytes % 7 % LAB HEMATOLOGY METHOD 01/06/2025 11:36 AM EDT [facility] Eosinophils % 0 % LAB HEMATOLOGY METHOD 01/06/2025 11:36 AM EDT [facility] Basophils % 0 % LAB HEMATOLOGY METHOD 01/06/2025 11:36 AM EDT [facility] Immature Granulocytes % 0 % LAB HEMATOLOGY METHOD 01/06/2025 11:36 AM EDT [facility] Neutrophils Absolute 0.03(LL) 1.60 - 6.10 10*3/uL LAB HEMATOLOGY METHOD 01/06/2025 11:36 AM EDT [facility] Lymphocytes Absolute 0.52(L) 1.20 - 3.90 10*3/uL LAB HEMATOLOGY METHOD 01/06/2025 11:36 AM EDT [facility] Monocytes Absolute 0.04(L) 0.30 - 0.90 10*3/uL LAB HEMATOLOGY METHOD 01/06/2025 11:36 AM EDT [facility] Eosinophils Absolute 0.00 0.00 - 0.50 10*3/uL LAB HEMATOLOGY METHOD 01/06/2025 11:36 AM EDT [facility] Basophils Absolute 0.00 0.00 - 0.10 10*3/uL LAB HEMATOLOGY METHOD 01/06/2025 11:36 AM EDT [facility] Immature Granulocytes Absolute 0.00 0.00 - 0.06 10*3/uL LAB HEMATOLOGY METHOD 01/06/2025 11:36 AM EDT [facility] Blood Venous blood specimen / Unknown Venipuncture / Unknown 01/06/2025 8:49 AM EDT 01/06/2025 9:01 AM EDT Narrative [facility] - 01/06/2025 11:36 AM EDT Therapeutic decision making should be based on absolute values, rather than percentages. us Christina Ramos MD LAB BLOOD ORDERABLES Final Resul t [facility] [address] [place] [address] documented in this encounter Visit Diagnoses Diagnosis [...] as of this encounter Care Teams Service Line Coordinator Relationship Specialty Start Date End Date Zhao Harris MD [facility] [address] [place] [address] PCP - General 12/03/20 documented as of this encounter
--- OUTSIDE RECORDS SUMMARY | 2025-01-13 09:30 | XMS_ITS | Encounter Summary ---
Author Organization [facility] Address [address] [place] [address] Care Team Providers Care Hay Stacker Operator Name Role Phone Zhao Harris MD Primary Care Provider [phone] Reason for Visit * Reason Comments Nurse Visit Labs Encounter Details Date Type Department Care Team ([facility] Contact Info) Description 01/13/2025 9:30 AM EDT Clinical Support P[facility] CC Hematology/BMT and Cellular Therapy Program [address] [place] [address] [place] [address] Social History Tobacco Use Types Packs/Day Years [...] t manav in the morning (EYE-DIRECTOR OF CATH LAB) to steady your nerves or to get [...] ([facility] st Contact Info) Description 02/02/2025 11:00 AM EDT Appointment PAV A Interventional Radiology [address] [place] [address] 02/10/2025 8:30 AM EDT Clinical Support PAV CC Hematology/BMT and Cellular Therapy Program [address] [address] 02/10/2025 9:00 AM EDT Office Visit PAV Hematology/BMT and Cellular Therapy Program [address] [address] Elaina Boss, PA 800 [facility] [address] [place] [address] 02/10/2025 10:30 AM EDT Appointment [facility]fusion [facility] 1 744 [place] [address] 02/11/2025 2:00 PM EDT Appointment [facility] 1 7[address] [place] [address] 02/12/2025 2:00 PM EDT Appointment [facility] 1 [address] [place] [address] 02/13/2025 2:00 PM EDT Appointment [facility] 1 [address] [place] [address] 02/14/2025 2:00 PM EDT Appointment [facility] 1 [address] [place] [address] 03/10/2025 8:30 AM EDT Clinical Support PAV CC Hematology/BMT and Cellular Therapy Program [address] [place] [address] 03/10/2025 9:00 AM EDT Office Visit P[facility] CC Hematology/BMT and Cellular Therapy Program 750 [facility] [place] [address] Isaura Wynn, BICYCLE RENTAL CLERK 800 [facility] [address]st [place] [address] 03/10/2025 11:20 AM EDT Office Visit Pav CC Head, Neck & Respiratory 800 [facility], 2nd [place] [address] Elsa Razo, BICYCLE RENTAL CLERK 800 [place] [address] documented as of this encounter Visit Diagnoses [...] documented as of this encounter Care Teams Hay Stacker Operator Relationship Specialty Start Date End Date Zhao Harris MD [address] [place] [address] [phone] PCP - General 12/03/20 documented as of this encounter
--- OUTSIDE RECORDS SUMMARY | 2025-01-13 10:00 | XMS_ITS | Encounter Summary ---
Author Organization [facility] Address [address] [place] [address] Care Team Providers Care 4 H Youth Development Specialist Name Role Phone Zhao Harris MD Primary Care Provider [phone] Reason for Referral * Imaging (Routine) - Pending Review Specialty Diagnoses / Procedures Referred By Justice t Referred To Contact Radiology Diagnoses Myelodysplasia (myelodysplastic syndrome) (CMS/HCC) Procedures CT Guided Asp and Biopsy Bone Marrow Consult to Interventional Radiology Virgen Vargas MD 800 [facility] [address] [address] Phone: tel: fax: Referral ID Status Reason Start Date Expiration Date V isits Requested Visits Authorized [id number] Pending Review 01/15/2025 07/17/2026 1 1 * Genetic Testing (Routine) - Pending Review Specialty Diagnoses / Procedures Referred By Justice mcgee Referred To Contact Lab Diagnoses Myelodysplasia (myelodysplastic syndrome) (CMS/HCC) Procedures Cytogenetics Testing, Oncology Virgen Vargas MD [address] [address] Phone: tel: fax: Referral ID Status Reason Start Date Expiration Date V isits Requested Visits Authorized [id number] Pending Review 01/13/2025 07/15/2026 1 1 * Genetic Testing (Routine) - Authorized Specialty Diagnoses / Procedures Referred By Justice mcgee Referred To Contact Lab Diagnoses Myelodysplasia (myelodysplastic syndrome) (CMS/HCC) Procedures Leukemia/Lymphoma - Immunophenotyping by Flow Cytometry Virgen Vargas MD [address] [address] Phone: tel: fax: Referral ID Status Reason Start Date Expiration Date V isits Requested Visits Authorized [id number] Authorized 01/13/2025 07/15/2026 1 1 * Genetic Testing (Routine) - Authorized Specialty Diagnoses / Procedures Referred By Justice mcgee Referred To Contact Lab Diagnoses Myelodysplasia (myelodysplastic syndrome) (CMS/HCC) Procedures Bone marrow exam Virgen Vargas MD [address] [address] Phone: tel: fax: Referral ID Status Reason Start Date Expiration Date V isits Requested Visits Authorized [id number] Authorized 01/13/2025 07/15/2026 1 1 Reason for Visit * Reason Comments Follow-up Encounter Details Date Type Department Care Team (Latest Contact Info) Description 01/13/2025 10:00 AM EDT Office Visit [facility] CC Hematology/BMT and Cellular Therapy Program [address] [place] [address] Isaura Wynn, ESTRELLA [address] [phone] Myelodysplasia (myelodysplastic syndrome) (CMS/HCC) (Primary [...] drink first t manav in the morning (EYE-EXCELLENCE COACH) to steady your nerves or to [...] Sign Reading Time Taken Comments Blood Pressure 125/81 01/13/2025 10:07 AM EDT Pulse 58 01/13/2025 10:07 AM EDT Temperature 36.6 C (97.8 F) 01/13/2025 10:07 AM EDT Respiratory Rate - - Oxygen Saturation 99% 01/13/2025 10:07 AM EDT Inhaled Oxygen Concentration - - Weight 83.2 kg (183 lb 6.8 oz) 01/13/2025 10:07 AM EDT Height 170.2 cm (5' 7 ) 01/13/2025 10:07 AM EDT Body Mass Index 28.73 01/13/2025 10:07 AM EDT documented in this encounter Functional Status * Over the past 2 weeks, how often have you been bothered by any of the following problems? Question Answer Date of Assessment Author Little interest or pleasure in doing things Not at all 01/13/2025 10:14 AM EDT Eddington, Cecelia W Feeling down, depressed, or hopeless Several days 01/13/2025 10:14 AM EDT Eddington, Cecelia W Patient Health Questionnaire -2 Score 1 01/13/2025 10:14 AM EDT Eddington, Cecelia W * Calculated C-SSRS Risk Score (Lifetime/Recent) Answer Date of Assessment Author No Risk Indicated 01/13/2025 10:14 AM EDT Chikarthik n Cecelia W * Question Answer Date of Assessment Author 1. Wish to be (Past 1 Month) No 025 10:14 AM EDT Eddington Cecelia W 2. Non-Specific Active Suici berry Thoughts (Past 1 Month) No 01/13/2025 10:14 AM EDT Neeta Diaz W documented as of this encounter Miscellaneous Notes * Progress Notes - Marlin Storey PharmD - 01/13/2025 10:00 AM EDT Pharmacy Hematology/Oncology Patient Education Note I counseled the patient on their chemotherapy regimen, which was scheduled to start 01/13/25. The chemotherapy agents that this patient is scheduled to receive include: decitabine. I provided the patient with a written explanation of the drugs contained in the regimen and their expected side effects, toxicities, and adverse reactions. I provided verbal explanation of the same material and providedmethods for self-monitoring. I answered all questions that the patient and caregiver had. The patient and caregiver demonstrated understanding of the material, and wished to proceed with the treatment. * Progress Notes - Marlin Storey PharmD - 01/13/2025 10:00 AM EDT Pharmacy Hematology/Oncology Treatment Note Hugo Lyons is a 69 y.o. male with MDS Study Patient: no Treatment Plan reviewed for decitabine/venetoclax [x] Follow-Up Clinical Review for Cycle 1 Interval History: Unfortunately, patient did not respond to azacitidine and venetoclax. Patient wasreferred to OSH for clinical trial options, but there are not currently any available. Will transition to decitabine and continue current venetoclax dosing. Today's Wt: Wt Readings from Last 1 Encounters: 01/13/25 83.2 kg (183 lb 6.8 oz) Dosing Wt: 83.2 kg Dosing Ht: 170.2 cm DosingBSA: 1.95 m2 Recent Labs: Lab Results Component Value Date WBC 0.63 (LL) 01/13/2025 HGB 8.9 (L) 01/13/2025 HCT 24.7 (L) 01/13/2025 MCV 84 01/13/2025 PLT 5 (LL) 01/13/2025 Lab Results Component Value Date GLUCOSE 104 (H) 01/13/2025 CALCIUM 8.9 01/13/2025 NA 140 01/13/2025 K 4.5 01/13/2025 CO2 21 (L) 01/13/2025 CL 109 (H) 01/13/2025 BUN 9 01/13/2025 CREATININE 0.72 01/13/2025 Lab Results Component Value Date ALT 95 (H) 01/13/2025 AST 84 (H) 01/13/2025 ALKPHOS 83 01/13/2025 BILITOT 0.7 01/13/2025 Lab Results Component Value Date NEUTROABS 0.02 (LL) 01/13/2025 Lab Results Component Value Date MG 2.4 12/16/2024 Lab Results Component Value Date TSH 1.02 10/20/2024 Lab Results Component Value Date URINEPRO 30 (A) 11/03/2024 Vitals: Visit Vitals BP 125/81 (BP Location: Left arm, Patient Position: Sitting, BP Cuff Size: Adult) Pulse 58 Temp 36.6 ??C (97.8 ??F) (Oral) Treatment/Therapy Plan: Decitabine 20 mg/m2 IV D1-5 Venetoclax 70 mg PO D1-14 Every 28 days [x] Venetoclax dose reduced d/t DDI with posaconazole Current Treatment Plan History: Dec/Hany: Cycle 1: 01/13/25 Prior Treatment History: Aza/Hany: Cycle 1: 10/20/24 Cycle 2: 11/18/24 Cycle 3: 12/16/24 Plan: Venetoclax rx sent to [facility]. Refills due monthly. Patient will return to clinic in 4 weeks. Will follow-up at that time. * Progress Notes - Isauar Wynn, HOUSEH[employer] CHORES - 01/13/2025 10:00 AM EDT HEMATOLOGY ONCOLOGY NOTE Patient ID: Hugo Lyons is a 69 y.o. male. Referring Physician: No referring provider defined for this encounter. Primary Care Provider: Zhao Harris MD Chief Complaint: Chief Complaint Patient presents with Follow-up Treatment Plan: Decitabine Daily x 5 / Venetoclax Every 28 Days Subjective History [...] a preserved mata-T cell profile with a CD4:ED1jqahj of 2.7:1. Polyclonal B-cells (3%) and a small plasma cell population (0.6%) were also identified. Cytogenetics: Normal. Molecular Testing: PCR for NPM1 and FLT3 mutations are negative. Next-generation sequencing (NGS) myeloid panel: ASXL1 - p.[id number] - VAF 25% TP53 - p.[id number] - VAF 36% U2AF1 - p.[id number] - VAF 33% 10/20/2024- started treatment with [...] Diagnosis Myelodysplasia (myelodysplastic syndrome) (CMS/HCC) 10/20/2024 - 01/10/2025 Chemotherapy azaCITIDine (Vidaza) 150 mg in sodium chloride 0.9 % 50 mL IVPB, 75 mg/m2 = 150 mg, Intravenous, Once, 3 of 23 cycles Administration: 150 mg (10/20/2024), 150 mg (10/21/2024), 150 mg (10/22/2024), 150 mg (10/23/2024), 150 mg(10/24/2024), 150 mg (10/25/2024), 150 mg (11/18/2024), 150 mg (11/19/2024), 150 mg (11/20/2024), 150 mg (11/21/2024), 150 mg (11/22/2024), 150 mg (11/23/2024), 150 mg (10/26/2024), 150 mg (12/16/2024), 150 mg (11/24/2024), 150 mg (12/17/2024), 150 mg (12/18/2024), 150 mg (12/19/2024), 150 mg (12/20/2024), 150 mg (12/21/2024), 150 mg (12/22/2024) 01/13/2025 - Chemotherapy decitabine (Dacogen) 39 mg in sodium chloride 0.9 % 100 mL IVPB, 20 mg/m2 = 39 mg, Intravenous, Once, 1 of 24 cycles Administration: 39 mg (01/13/2025), 39 mg (01/14/2025), 39 mg (01/15/2025), 39 mg (01/16/2025), 39 mg (01/17/2025) Past Medical History: Diagnosis Date Arteriosclerotic cardiovascular [...] fever or infection, shortness of breath, n/v/d. 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 He went to [facility] for a second opinion and would like to dicuss switching treatment. Review of systems: 14- point ROS is reviewed and negative except in HPI. Objective Physical Exam: Vital Signs for this encounter: BSA: 1.98 meters squared Visit Vitals BP 125/81 (BP Location: Left arm, Patient Position: Sitting, BP Cuff Size: Adult) Pulse 58 Temp 36.6 ??C (97.8 ??F) (Oral) Ht 1.702 m (5' 7 ) Wt 83.2 kg (183 lb 6.8 oz) SpO2 99% BMI 28.73 kg/m?? Smoking Status Every Day BSA 1.98 m?? Physical Examination: General: appears stated age, no acute distress Skin: No rashes, no lesions. Head: normocephalic, atraumatic. Eyes: EOMI. Conjunctivae are pink and moist, non-erythematous. Sclera anicteric, noninjected. Lymph Nodes: No lymphadenopathy. Pulmonary: Breathing is non-labored. No cough. Lung sounds are CTA throughout bilaterally, no wheezes, rhonchi or crackles. Cardiovascular: regular heart rate and rhythm. No murmurs/rubs. Abdomen: Soft/non-tender/non-distended. Normal bowel sounds present throughout. Extremities: No peripheral edema. No calf tenderness. Musculoskeletal: Normal range of motion. No joint swelling or erythema. Neurological: Alert and oriented x 3. Responds to verbal commands. Psychiatric: Appropriate mood and behavior. Good eye contact. 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 Hugo Lyons is a 69 y.o. male with a history of progressive cytopenias dating back to 2019, culminating in a diagnosis of myelodysplastic syndrome with increased blasts-2 (MDS-IB2) in August 2024, with 15-17% blasts, multilineage dysplasia, and high-risk mutations including TP53 (VAF 36%), ASXL1, and U2AF1. Initial cytogenetics were normal. He was started on azacitidine and venetoclax on 10/20/2024. A follow-up bone marrow on 11/10/2024 confirmed transformation to acute myeloid leukemia (AML) with 35% blasts and complex cytogenetics including t(4;14), add(5q), -17, and marker chromosomes. Despite a second cycle of therapy, his most recent marrow on 12/09/2024 showed persistent disease with 14% blasts and absent granulopoiesis, indicating suboptimal response. Dr. Vargas discussed with Mr. Lyons the significance of his leukemia. His disease is characterized by high-risk genetic mutations, particularly the TP53 mutation, which is associated with very poorprognosis, limited response to standard therapies, and a high likelihood of relapse. Unfortunately,despite completing two cycles of azacitidine and venetoclax, [...] a durable remission in the context of [id number] AML. The third, and most promising, option would be enrollment in a clinical trial, ideally one that targets TP53- mutant disease or incorporates novel agents. He went to [facility] for a second opinion and to discuss trial options on 01/07/25. Dr. Monae recommended switching treatment to decitabine/venetoclax. Dr. Vargas consented Mr. Lyons for this treatment today. Will begin cycle 1 of decitabine/venetoclax today. Headaches- CT head in 11/03/24 shows no [...] (Norvasc) 2.5 MG tablet, Take 1 tablet by mouth once daily, Disp: 90 tablet, Rfl: 1 bisoprolol (Zebeta) 5 MG tablet, Take 1 tablet (5 mg) by mouth daily., Disp: 90 tablet, Rfl: 3 HYDROcodone-acetaminophen ([place]) 5-325 MG tablet, Take 1 tablet by [...] being accessed., Disp: 30 g, Rfl: 2 magic mouthwash BLM (FIRST-Mouthwash) suspension, Use 15 mL in the mouth or throat 4 times a day asneeded for mucositis (swish and swallow prn for mouth sores). Swish and swallow 15 mL 4 times dailyprn for mouth sores, Disp: 237 mL, Rfl: 2 posaconazole (Noxafil) [address] [...] for constipation., Disp: 30 tablet, Rfl: 3 nitroglycerin (Nitrostat) 0.4 MG SL tablet, Place 1 tablet (0.4 mg) under the tongue every 5 (five)minutes as needed for chest pain. (Patient not taking: Reported on 01/13/2025), Disp: 10 tablet, Rfl: 11 venetoclax (Venclexta) 10 MG tablet, Take 2 tablets by mouth daily for 14 days. Take 2 tabs on days1-14 of a 28 day cycle in combination with other tablets for a total of 70mg daily., Disp: 28 tablet, Rfl: 0 venetoclax (Venclexta) 50 MG tablet, Take 1 tablet by mouth daily for 14 days. Take on days 1-14 ofa 28 day cycle in combination with other tablets for a total of 70mg daily., Disp: 14 tablet, Rfl: 0 Cosigned by Virgen Vargas MD at 01/20/2025 10:21 PM EDT Associated attestation - Virgen Vargas MD - 01/20/2025 10:21 PM EDT I attest to being involved in providing substantive part of the medical decision making in patient care. documented in this encounter Plan of Treatment Upcoming Encounters Date Type Department Care Team (Late st Contact Info) Description 02/02/2025 11:00 AM EDT Appointment P[facility] A Interventional Radiology [address] [place] [address] 02/10/2025 8:30 AM EDT Clinical Support P[facility] CC Hematology/BMT and Cellular Therapy Program [address] [place] [address] 02/10/2025 9:00 AM EDT Office Visit PAV Hematology/BMT and Cellular Therapy Program [address] [place] [address] Elaina Boss PA 800 [facility] [address] [place] [phone] 02/10/2025 10:30 AM EDT Appointment [facility] Infusion Clinic 1 [address] [place] [address] 02/11/2025 2:00 PM EDT Appointment [facility] Infusion [facility] 1 [address] [place] [address] 02/12/2025 2:00 PM EDT Appointment [facility] Infusion [facility] 1 [address] [place] [address] 02/13/2025 2:00 PM EDT Appointment [facility] In[facility] 1 [address] [place] [phone] 02/14/2025 2:00 PM EDT Appointment [facility] Infusion [facility] 1 [address] [place] [phone] 03/10/2025 8:30 AM EDT Clinical Support P[facility] Hematology/BMT and Cellular Therapy Program [address] [phone] 03/10/2025 9:00 AM EDT Office Visit [facility]AV Hematology/BMT and Cellular Therapy Program [address] [phone] Isaura Wynn, HOUSEHOLD CHORES 800 [facility] [address] [place] [phone] 03/10/2025 11:20 AM EDT Office Visit Pav CC Head, Neck & Respiratory 800 [facility] [address] [place] [phone] Elsa Razo, HOUSEH[employer] CHORES [address] [place] [phone] Scheduled Orders Name Type Priority Associated Diagnoses Order Schedule CBC and differential Lab Routine Myelodysplasia (myelodysplastic syndrome) (CMS/HCC) Expected: 01/20/2025, Expires: 01/20/2026 Comprehensive metabolic panel Lab Routine Myelodysplasia (myelodysplastic syndrome) ([facility]) Expected: 01/20/2025, Expires: 01/20/2026 CBC and differential Lab Routine Myelodysplasia (myelodysplastic syndrome) ([facility]) Expected: 01/22/2025, Expires: 01/22/2026 CBC and differential Lab Routine Myelodysplasia (myelodysplastic syndrome) ([facility]) Expected: 01/24/2025, Expires: 01/24/2026 CBC and differential Lab Routine Myelodysplasia (myelodysplastic syndrome) ([facility]) Expected: 01/27/2025, Expires: 01/27/2026 Comprehensive metabolic panel Lab Routine Myelodysplasia (myelodysplastic syndrome) ([facility]) Expected: 01/27/2025, Expires: 01/27/2026 CBC and differential Lab Routine Myelodysplasia (myelodysplastic syndrome) ([facility]) Expected: 01/29/2025, Expires: 01/29/2026 CBC and differential Lab Routine Myelodysplasia (myelodysplastic syndrome) ([facility]) Expected: 01/31/2025, Expires: 01/31/2026 CBC and differential Lab Routine Myelodysplasia (myelodysplastic syndrome) ([facility]) Expected: 02/03/2025, Expires: 02/03/2026 Comprehensive metabolic panel Lab Routine Myelodysplasia (myelodysplastic syndrome) ([facility]) Expected: 02/03/2025, Expires: 02/03/2026 CBC and differential Lab Routine Myelodysplasia (myelodysplastic syndrome) ([facility]) Expected: 02/05/2025, Expires: 02/05/2026 CBC and differential Lab Routine Myelodysplasia (myelodysplastic syndrome) ([facility]) Expected: 02/07/2025, Expires: 02/07/2026 Bone marrow exam Pathology and Cytology Routine Myelodysplasia (myelodysplastic syndrome) ([facility]) Expected: 01/13/2025 (Approximate), Expires: 07/17/2026 Leukemia/Lymphoma - Immunophenotyping by Flow Cytometry Lab Routine Myelodysplasia (myelodysplastic syndrome) ([facility]) Expected: 01/13/2025 (Approximate), Expires: 07/17/2026 Cytogenetics Testing, Oncology Lab Routine Myelodysplasia (myelodysplastic syndrome) (CMS/HCC) Expected: 01/13/2025 (Approximate), Expires: 07/17/2026 CT Guided Asp and Biopsy Bone Marrow Imaging Routine Myelodysplasia (myelodysplastic syndrome) (CMS/HCC) Expected: 02/02/2025, Expires: 07/19/2026 documented as of this encounter Procedures Procedure Name Priority Date/Time Associated Diagnosis Comments CBC WITH AUTO DIFFERENTIAL Routine 01/13/2025 10:02 AM EDT Myelodysplasia (myelodysplastic syndrome) (CMS/HCC) COMPREHENSIVE METABOLIC PANEL, PLASMA Routine 01/13/2025 10:02 AM EDT Myelodysplasia (myelodysplastic syndrome) (CMS/HCC) documented in this encounter Results * (ABNORMAL) CBC and differential (01/17/2025 8:03 AM EDT) WBC Count 0.54(LL) 3.70 - 10.30 10*3/uL LAB HEMATOLOGY METHOD 01/17/2025 9:41 AM EDT [facility] RBC Count 2.55(L) 4.60 - 6.10 10*6/uL LAB HEMATOLOGY METHOD 01/17/2025 9:41 AM EDT [facility] HGB 7.6(L) 13.7 - 17.5 g/dL LAB HEMATOLOGY METHOD 01/17/2025 9:41 AM EDT [facility] HCT 21.6(L) 40.0 - 51.0 % LAB HEMATOLOGY METHOD 01/17/2025 9:41 AM EDT [facility] Platelet Count 23(L) 155 - 369 10*3/uL LAB HEMATOLOGY METHOD 01/17/2025 9:41 AM EDT [facility] MCV 85 79 - 98 fL LAB HEMATOLOGY METHOD 01/17/2025 9:41 AM EDT [facility] MCH 29.8 26.0 - 32.0 pg LAB HEMATOLOGY METHOD 01/17/2025 9:41 AM EDT [facility] MCHC 35.2 30.7 - 35.5 g/dL LAB HEMATOLOGY METHOD 01/17/2025 9:41 AM EDT [facility] RDW 14.2 11.5 - 14.5 % LAB HEMATOLOGY METHOD 01/17/2025 9:41 AM EDT [facility] MPV 9.0 8.8 - 12.5 fL LAB HEMATOLOGY METHOD 01/17/2025 9:41 AM EDT [facility] nRBC 0.0 <=0.0 per 100 WBCs LAB HEMATOLOGY METHOD 01/17/2025 9:41 AM EDT [facility] Differential Type Automated LAB HEMATOLOGY METHOD 01/17/2025 9:41 AM EDT [facility] Neutrophils % 7 % LAB HEMATOLOGY METHOD 01/17/2025 9:41 AM EDT [facility] Lymphocytes % 91 % LAB HEMATOLOGY METHOD 01/17/2025 9:41 AM EDT [facility] Monocytes % 2 % LAB HEMATOLOGY METHOD 01/17/2025 9:41 AM EDT [facility] Eosinophils % 0 % LAB HEMATOLOGY METHOD 01/17/2025 9:41 AM EDT [facility] Basophils % 0 % LAB HEMATOLOGY METHOD 01/17/2025 9:41 AM EDT [facility] Immature Granulocytes % 0 % LAB HEMATOLOGY METHOD 01/17/2025 9:41 AM EDT [facility] Neutrophils Absolute 0.04(LL) 1.60 - 6.10 10*3/uL LAB HEMATOLOGY METHOD 01/17/2025 9:41 AM EDT [facility] Lymphocytes Absolute 0.49(L) 1.20 - 3.90 10*3/uL LAB HEMATOLOGY METHOD 01/17/2025 9:41 AM EDT [facility] Monocytes Absolute 0.01(L) 0.30 - 0.90 10*3/uL LAB HEMATOLOGY METHOD 01/17/2025 9:41 AM EDT [facility] Eosinophils Absolute 0.00 0.00 - 0.50 10*3/uL LAB HEMATOLOGY METHOD 01/17/2025 9:41 AM EDT [facility] Basophils Absolute 0.00 0.00 - 0.10 10*3/uL LAB HEMATOLOGY METHOD 01/17/2025 9:41 AM EDT [facility] Immature Granulocytes Absolute 0.00 0.00 - 0.06 10*3/uL LAB HEMATOLOGY METHOD 01/17/2025 9:41 AM EDT [facility] Blood Blood sample taken from central line / Unknown (Port) Long-term Catheter / Unknown 01/17/2025 8:03 AM EDT 01/17/2025 8:07 AM EDT Narrative [facility] - 01/17/2025 9:41 AM EDT Therapeutic decision making should be based on absolute values, rather than percentages. us Virgen Vargas MD LAB BLOOD ORDERABLES Final Re sult Performing Organization Address City/[facility]/ZIP Co de Phone Number [facility] [address] [place] [address] * LACTATE DEHYDROGENASE (01/15/2025 8:17 AM EDT) LDH, Plasma 192 116 - 250 U/L 01/15/2025 9:19 AM EDT [facility] Blood Blood sample taken from central line / Unknown (Port) Long-term Catheter / Unknown 01/15/2025 8:17 AM EDT 01/15/2025 8:47 AM EDT us Virgen Vargas MD LAB BLOOD ORDERABLES Final Re sult Performing Organization Address [facility] Co de Phone Number [facility] [address] [place] [address] * Magnesium (01/15/2025 8:17 AM EDT) Magnesium, Plasma 2.2 1.9 - 2.4 mg/dL 01/15/2025 9:19 AM EDT [facility] Blood Blood sample taken from central line / Unknown (Port) Long-term Catheter / Unknown 01/15/2025 8:17 AM EDT 01/15/2025 8:47 AM EDT us Virgen Vargas MD LAB BLOOD ORDERABLES Final Re sult Performing Organization Address City/[facility] Co de Phone Number [facility] [address] [place] [address] * Phosphorus (01/15/2025 8:17 AM EDT) Phosphorus, Plasma 3.1 2.5 - 4.5 mg/dL 01/15/2025 9:19 AM EDT [facility] Blood Blood sample taken from central line / Unknown (Port) Long-term Catheter / Unknown 01/15/2025 8:17 AM EDT 01/15/2025 8:47 AM EDT Virgen Vargas MD LAB BLOOD ORDERABLES Final Re sult Performing Organization Address [facility] Co de Phone Number [facility] [address] [place] [address] * (ABNORMAL) Uric acid (01/15/2025 8:17 AM EDT) Uric Acid, Plasma 3.0(L) 3.7 - 8.0 mg/dL 01/15/2025 9:19 AM EDT [facility] Blood Blood sample taken from central line / Unknown (Port) Long-term Catheter / Unknown 01/15/2025 8:17 AM EDT 01/15/2025 8:47 AM EDT Virgen Vargas MD LAB BLOOD ORDERABLES Final Re sult Performing Organization Address [facility] Co de Phone Number [facility] [address] [place] [address] * (ABNORMAL) BASIC METABOLIC PANEL (01/15/2025 8:17 AM EDT) Glucose, Plasma 96 74 - 99 mg/dL 01/15/2025 9:19 AM EDT [facility] [facility] BUN, Plasma 12 8 - 23 mg/dL 01/15/2025 9:19 AM EDT [facility] Creatinine, Plasma 0.71 0.70 - 1.20 mg/dL 01/15/2025 9:19 AM EDT [facility] BUN/Creatinine Ratio 17 01/15/2025 9:19 AM EDT [facility] Sodium, Plasma 139 136 - 145 mmol/L 01/15/2025 9:19 AM EDT [facility] Potassium, Plasma 4.1 3.6 - 4.9 mmol/L 01/15/2025 9:19 AM EDT [facility] Chloride, Plasma 108(H) 97 - 107 mmol/L 01/15/2025 9:19 AM EDT [facility] CO2, Plasma 21(L) 22 - 29 mmol/L 01/15/2025 9:19 AM EDT [facility] Anion Gap 10 6 - 16 mmol/L 01/15/2025 9:19 AM EDT [facility] Total Calcium, Plasma 8.9 8.9 - 10.2 mg/dL 01/15/2025 9:19 AM EDT [facility] eGFRcr 99.3 mL/min/1.7 3m*2 01/15/2025 9:19 AM EDT [facility] Comment:Reported eGFRcr in m L/min/1.73m2 is based the CKD-EPI 2020 equation that does not use a race coefficient. Blood Blood sample taken from central line / Unknown (Port) Long-term Catheter / Unknown 01/15/2025 8:17 AM EDT 01/15/2025 8:47 AM EDT us Virgen Vargas MD LAB BLOOD ORDERABLES Final Re sult [facility] [address] [place] [address] * (ABNORMAL) CBC and differential (01/15/2025 8:17 AM EDT) WBC Count 0.53(LL) 3.70 - 10.30 10*3/uL LAB HEMATOLOGY METHOD 01/15/2025 11:53 AM EDT [facility] RBC Count 2.82(L) 4.60 - 6.10 10*6/uL LAB HEMATOLOGY METHOD 01/15/2025 11:53 AM EDT [facility] HGB 8.2(L) 13.7 - 17.5 g/dL LAB HEMATOLOGY METHOD 01/15/2025 11:53 AM EDT [facility] HCT 24.0(L) 40.0 - 51.0 % LAB HEMATOLOGY METHOD 01/15/2025 11:53 AM EDT [facility] Platelet Count 18(LL) 155 - 369 10*3/uL LAB HEMATOLOGY METHOD 01/15/2025 11:53 AM EDT [facility] MCV 85 79 - 98 fL LAB HEMATOLOGY METHOD 01/15/2025 11:53 AM EDT [facility] MCH 29.1 26.0 - 32.0 pg LAB HEMATOLOGY METHOD 01/15/2025 11:53 AM EDT [facility] MCHC 34.2 30.7 - 35.5 g/dL LAB HEMATOLOGY METHOD 01/15/2025 11:53 AM EDT [facility] RDW 14.2 11.5 - 14.5 % LAB HEMATOLOGY METHOD 01/15/2025 11:53 AM EDT [facility] MPV 9.3 8.8 - 12.5 fL LAB HEMATOLOGY METHOD 01/15/2025 11:53 AM EDT [facility] nRBC 0.0 <=0.0 per 100 WBCs LAB HEMATOLOGY METHOD 01/15/2025 11:53 AM EDT [facility] Differential Type Automated LAB HEMATOLOGY METHOD 01/15/2025 11:53 AM EDT [facility] Neutrophils % 8 % LAB HEMATOLOGY METHOD 01/15/2025 11:53 AM EDT [facility] Lymphocytes % 88 % LAB HEMATOLOGY METHOD 01/15/2025 11:53 AM EDT [facility] Monocytes % 4 % LAB HEMATOLOGY METHOD 01/15/2025 11:53 AM EDT [facility] Eosinophils % 0 % LAB HEMATOLOGY METHOD 01/15/2025 11:53 AM EDT [facility] Basophils % 0 % LAB HEMATOLOGY METHOD 01/15/2025 11:53 AM EDT [facility] Immature Granulocytes % 0 % LAB HEMATOLOGY METHOD 01/15/2025 11:53 AM EDT [facility] Neutrophils Absolute 0.04(LL) 1.60 - 6.10 10*3/uL LAB HEMATOLOGY METHOD 01/15/2025 11:53 AM EDT [facility] Lymphocytes Absolute 0.47(L) 1.20 - 3.90 10*3/uL LAB HEMATOLOGY METHOD 01/15/2025 11:53 AM EDT [facility] Monocytes Absolute 0.02(L) 0.30 - 0.90 10*3/uL LAB HEMATOLOGY METHOD 01/15/2025 11:53 AM EDT [facility] Eosinophils Absolute 0.00 0.00 - 0.50 10*3/uL LAB HEMATOLOGY METHOD 01/15/2025 11:53 AM EDT [facility] Basophils Absolute 0.00 0.00 - 0.10 10*3/uL LAB HEMATOLOGY METHOD 01/15/2025 11:53 AM EDT [facility] Immature Granulocytes Absolute 0.00 0.00 - 0.06 10*3/uL LAB HEMATOLOGY METHOD 01/15/2025 11:53 AM EDT [facility] Blood Blood sample taken from central line / Unknown (Port) Long-term Catheter / Unknown 01/15/2025 8:17 AM EDT 01/15/2025 8:59 AM EDT Narrative [facility] - 01/15/2025 11:53 AM EDT Therapeutic decision making should be based on absolute values, rather than percentages. Virgen Vargas MD LAB BLOOD ORDERABLES Final Re sult Performing Organization Address City/[facility]/ZIP Co de Phone Number [facility] [address] [place] [address] * LACTATE DEHYDROGENASE (01/14/2025 9:06 AM EDT) LDH, Plasma 195 116 - 250 U/L 01/14/2025 9:58 AM EDT [facility] Blood Blood sample taken from central line / Unknown (Port) Long-term Catheter / Unknown 01/14/2025 9:06 AM EDT 01/14/2025 9:25 AM EDT Virgen Vargas MD LAB BLOOD ORDERABLES Final Re sult [facility] [address] [place] [address] * Magnesium (01/14/2025 9:06 AM EDT) Magnesium, Plasma 2.2 1.9 - 2.4 mg/dL 01/14/2025 9:58 AM EDT [facility] Blood Blood sample taken from central line / Unknown (Port) Long-term Catheter / Unknown 01/14/2025 9:06 AM EDT 01/14/2025 9:25 AM EDT Virgen Vargas MD LAB BLOOD ORDERABLES Final Re sult Performing Organization Address [facility]/ZIP Co de Phone Number [facility] [address] [place] [address] * Phosphorus (01/14/2025 9:06 AM EDT) Phosphorus, Plasma 3.6 2.5 - 4.5 mg/dL 01/14/2025 9:58 AM EDT [facility] Blood Blood sample taken from central line / Unknown (Port) Long-term Catheter / Unknown 01/14/2025 9:06 AM EDT 01/14/2025 9:25 AM EDT Virgen Vargas MD LAB BLOOD ORDERABLES Final Re sult Performing Organization Address [facility] Co de Phone Number [facility] [address] [place] [address] * (ABNORMAL) Uric acid (01/14/2025 9:06 AM EDT) Uric Acid, Plasma 3.0(L) 3.7 - 8.0 mg/dL 01/14/2025 9:58 AM EDT [facility] Blood Blood sample taken from central line / Unknown (Port) Long-term Catheter / Unknown 01/14/2025 9:06 AM EDT 01/14/2025 9:25 AM EDT Virgen Vargas MD LAB BLOOD ORDERABLES Final Re sult Performing Organization Address City/[facility]/ZIP Co de Phone Number [facility] [address] [place] [address] * (ABNORMAL) BASIC METABOLIC PANEL (01/14/2025 9:06 AM EDT) Glucose, Plasma 101(H) 74 - 99 mg/dL 01/14/2025 9:58 AM EDT [facility] BUN, Plasma 9 8 - 23 mg/dL 01/14/2025 9:58 AM EDT [facility] Creatinine, Plasma 0.71 0.70 - 1.20 mg/dL 01/14/2025 9:58 AM EDT [facility] BUN/Creatinine Ratio 13 01/14/2025 9:58 AM EDT [facility] Sodium, Plasma 140 136 - 145 mmol/L 01/14/2025 9:58 AM EDT [facility] Potassium, Plasma 4.3 3.6 - 4.9 mmol/L 01/14/2025 9:58 AM EDT [facility] Chloride, Plasma 110(H) 97 - 107 mmol/L 01/14/2025 9:58 AM EDT [facility] CO2, Plasma 21(L) 22 - 29 mmol/L 01/14/2025 9:58 AM EDT [facility] Anion Gap 9 6 - 16 mmol/L 01/14/2025 9:58 AM EDT [facility] Total Calcium, Plasma 8.6(L) 8.9 - 10.2 mg/dL 01/14/2025 9:58 AM EDT [facility] eGFRcr 99.3 mL/min/1.7 3m*2 01/14/2025 9:58 AM EDT [facility] Comment:Reported eGFRcr in m L/min/1.73m2 is based the CKD-EPI 2020 equation that does not use a race coefficient. Blood Blood sample taken from central line / Unknown (Port) Long-term Catheter / Unknown 01/14/2025 9:06 AM EDT 01/14/2025 9:25 AM EDT us Virgen Vargas MD LAB BLOOD ORDERABLES Final Re sult [facility] [address] [place] [address] * (ABNORMAL) Comprehensive Metabolic Panel, Plasma (01/13/2025 10:02 AM EDT) Glucose, Plasma 104(H) 74 - 99 mg/dL 01/13/2025 10:56 AM EDT [facility] BUN, Plasma 9 8 - 23 mg/dL 01/13/2025 10:56 AM EDT [facility] Creatinine, Plasma 0.72 0.70 - 1.20 mg/dL 01/13/2025 10:56 AM EDT [facility] BUN/Creatinine Ratio 13 01/13/2025 10:56 AM EDT [facility] Sodium, Plasma 140 136 - 145 mmol/L 01/13/2025 10:56 AM EDT [facility] Potassium, Plasma 4.5 3.6 - 4.9 mmol/L 01/13/2025 10:56 AM EDT [facility] Chloride, Plasma 109(H) 97 - 107 mmol/L 01/13/2025 10:56 AM EDT [facility] CO2, Plasma 21(L) 22 - 29 mmol/L 01/13/2025 10:56 AM EDT [facility] Anion Gap 10 6 - 16 mmol/L 01/13/2025 10:56 AM EDT [facility] Total Calcium, Plasma 8.9 8.9 - 10.2 mg/dL 01/13/2025 10:56 AM EDT [facility] Total Protein 6.9 6.3 - 7.9 g/dL 01/13/2025 10:56 AM EDT [facility] Albumin, Plasma 4.1 3.5 - 5.2 g/dL 01/13/2025 10:56 AM EDT [facility] AST, Plasma 84(H) 10 - 50 U/L 01/13/2025 10:56 AM EDT [facility] ALT, Plasma 95(H) 10 - 50 U/L 01/13/2025 10:56 AM EDT [facility] Alkaline Phosphatase, Plasma 83 40 - 115 U/L 01/13/2025 10:56 AM EDT [facility] Total Bilirubin, Plasma 0.7 0.2 - 1.1 mg/dL 01/13/2025 10:56 AM EDT [facility] eGFRcr 98.9 mL/min/1.7 3m*2 01/13/2025 10:56 AM EDT [facility] Comment:Reported eGFRcr in m L/min/1.73m2 is based the CKD-EPI 2020 equation that does not use a race coefficient. Blood Blood sample taken from central line / Unknown (Port) Long-term Catheter / Unknown 01/13/2025 10:02 AM EDT 01/13/2025 10:24 AM EDT us Isaura Wynn APRN LAB BLOOD ORDERABLES Final Res ult [facility] [address] [place] [address] * (ABNORMAL) CBC and Differential (01/13/2025 10:02 AM EDT) WBC Count 0.63(LL) 3.70 - 10.30 10*3/uL LAB HEMATOLOGY METHOD 01/13/2025 10:50 AM EDT [facility] RBC Count 2.94(L) 4.60 - 6.10 10*6/uL LAB HEMATOLOGY METHOD 01/13/2025 10:50 AM EDT [facility] HGB 8.9(L) 13.7 - 17.5 g/dL LAB HEMATOLOGY METHOD 01/13/2025 10:50 AM EDT [facility] HCT 24.7(L) 40.0 - 51.0 % LAB HEMATOLOGY METHOD 01/13/2025 10:50 AM EDT [facility] Platelet Count 5(LL) 155 - 369 10*3/uL LAB HEMATOLOGY METHOD 01/13/2025 10:50 AM EDT [facility] MCV 84 79 - 98 fL LAB HEMATOLOGY METHOD 01/13/2025 10:50 AM EDT [facility] MCH 30.3 26.0 - 32.0 pg LAB HEMATOLOGY METHOD 01/13/2025 10:50 AM EDT [facility] MCHC 36.0(H) 30.7 - 35.5 g/dL LAB HEMATOLOGY METHOD 01/13/2025 10:50 AM EDT [facility] RDW 14.4 11.5 - 14.5 % LAB HEMATOLOGY METHOD 01/13/2025 10:50 AM EDT [facility] MPV LAB HEMATOLOGY METHOD 01/13/2025 10:50 AM EDT [facility] Comment:Not Measured nRBC 0.0 <=0.0 per 100 WBCs LAB HEMATOLOGY METHOD 01/13/2025 10:50 AM EDT [facility] Differential Type Automated LAB HEMATOLOGY METHOD 01/13/2025 10:50 AM EDT [facility] Neutrophils % 3 % LAB HEMATOLOGY METHOD 01/13/2025 10:50 AM EDT [facility] Lymphocytes % 94 % LAB HEMATOLOGY METHOD 01/13/2025 10:50 AM EDT [facility] Monocytes % 3 % LAB HEMATOLOGY METHOD 01/13/2025 10:50 AM EDT [facility] Eosinophils % 0 % LAB HEMATOLOGY METHOD 01/13/2025 10:50 AM EDT [facility] Basophils % 0 % LAB HEMATOLOGY METHOD 01/13/2025 10:50 AM EDT [facility] Immature Granulocytes % 0 % LAB HEMATOLOGY METHOD 01/13/2025 10:50 AM EDT [facility] Neutrophils Absolute 0.02(LL) 1.60 - 6.10 10*3/uL LAB HEMATOLOGY METHOD 01/13/2025 10:50 AM EDT [facility] Lymphocytes Absolute 0.59(L) 1.20 - 3.90 10*3/uL LAB HEMATOLOGY METHOD 01/13/2025 10:50 AM EDT [facility] Monocytes Absolute 0.02(L) 0.30 - 0.90 10*3/uL LAB HEMATOLOGY METHOD 01/13/2025 10:50 AM EDT [facility] Eosinophils Absolute 0.00 0.00 - 0.50 10*3/uL LAB HEMATOLOGY METHOD 01/13/2025 10:50 AM EDT [facility] Basophils Absolute 0.00 0.00 - 0.10 10*3/uL LAB HEMATOLOGY METHOD 01/13/2025 10:50 AM EDT [facility] Immature Granulocytes Absolute 0.00 0.00 - 0.06 10*3/uL LAB HEMATOLOGY METHOD 01/13/2025 10:50 AM EDT [facility] Blood Blood sample taken from central line / Unknown (Port) Long-term Catheter / Unknown 01/13/2025 10:02 AM EDT 01/13/2025 10:15 AM EDT [facility] - 01/13/2025 10:50 AM EDT Therapeutic decision making should be based on absolute values, rather than percentages. us Isaura Wynn APRN LAB BLOOD ORDERABLES Final Res ult [facility] [address] [place] [address] documented in this encounter Visit Diagnoses Diagnosis [...] documented as of this encounter Care Teams 4 H Youth Development Specialist Relationship Specialty Start Date End Date Zhao Harris MD [address] [place] [address] PCP - General 12/03/20 documented as of this encounter
--- OUTSIDE RECORDS SUMMARY | 2025-01-13 11:30 | XMS_ITS | Encounter Summary ---
Author Organization [facility] Address [address] [place] [address] Care Team Providers Care Dubbing Machine Operator Name Role Phone Zhao Harris MD Primary Care Provider + [phone] Reason for Visit * Episode Based Medications (Routine) - Authorized Specialty Diagnoses / Procedures Referred By Justice mcgee Referred To Contact Diagnoses Myelodysplasia (myelodysplastic syndrome) (CMS/HCC) Procedures Decitabine Daily x 5 / Venetoclax Every 28 Days Virgen Vargas MD 800 [facility] [address] [address] Phone: tel: fax: Virgen Vargas MD 800 [facility] [address] [address] Phone: tel: fax: Referral ID Status Reason Start Date Expiration Date V isits Requested Visits Authorized [id number] Authorized 01/13/2025 07/15/2026 1 30 Encounter Details Date Type Department Care Team (Latest Contact Info) Description 01/13/2025 11:30 AM EDT - 01/13/2025 11:59 PM EDT Hospital Encounter [facility] H Infusion [address] [place] [phone] Myelodysplasia (myelodysplastic syndrome) (CMS/HCC) (Primary Dx); Thrombocytopenia [...] drink first t manav in the morning (EYE-POWERHOUSE ELECTRICIAN) to steady your nerves or to [...] 5 MG tabletIndications :Coronary artery disease involving [place] heart with angina pectoris, unspecified vessel or lesion type (CMS/HCC),Hyperte nsion, unspecified type Take 1 tablet (5 mg) by mouth daily. 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 [address] [place] [address] 02/10/2025 10:30 AM EDT Appointment [facility] Infusion Clinic 1 [address] [place] [address] 02/11/2025 2:00 PM EDT Appointment [facility] 1 [address] [place] [address] 02/12/2025 2:00 PM EDT Appointment [facility] 1 [address] [place] [address] 02/13/2025 2:00 PM EDT Appointment [facility] 1 [address] [place] [address] 02/14/2025 2:00 PM EDT Appointment [facility] 1 [address] [place] [address] 03/10/2025 8:30 AM EDT Clinical Support [facility] CC Hematology/BMT and Cellular Therapy Program [address] [address] 03/10/2025 9:00 AM EDT Office Visit [facility] Hematology/BMT and Cellular Therapy Program [address] [address] Isaura Wynn, PROJECT MANAGER SENIOR 800 [facility] [address] [place] [address] 03/10/2025 11:20 AM EDT Office Visit Pav CC Head, Neck & Respiratory 800 [facility], 2nd [place] [address] Elsa Razo, PROJECT MANAGER SENIOR [address] [place] [address] documented as of this encounter Procedures Procedure [...] * Transfuse platelets (01/13/2025 2:36 PM EDT) Result [facility] Kayli Daly Janetallegraaxel CHIU BLOOD TRANSFUSION ORDERA BLES Final Result * Transfuse platelets: 1 Units (01/13/2025 2:36 PM EDT) Kayli Daly Janetallegraaxel CHIU BLOOD TRANSFUSION ORDERA BLES Final Result * (ABNORMAL) Platelet count (01/13/2025 2:07 PM EDT) Platelet Count 39(L) 155 - 369 10*3/uL LAB HEMATOLOGY METHOD 01/13/2025 2:37 PM EDT [facility] Blood Venous blood specimen / Unknown Venipuncture / Unknown 01/13/2025 2:07 PM EDT 01/13/2025 2:30 PM EDT Result [facility] Virgen Vargas MD LAB BLOOD ORDERABLES Final Re sult [facility] [address] [place] [address] * Exception to Standard Practice, Pathologist Interpretation [...] ORDERAB LES Final Result Performing Organization Address [facility] de Phone Number BLOOD BANK [address] * Prepare Leukocyte Reduced Platelets: 1 Units (01/13/2025 12:07 PM EDT) Product Code [id number] CH BLOO D BANK Dispense Status Transfused BLOOD BANK Blood Expiration Date [id number] BLOOD BANK Unit Number [id number] CH B LOOD BANK Product Blood Type 6200 BLOOD BANK Blood Type A+ BLOOD BANK Blood Venous blood specimen / Unknown Kayli CHIU BLOOD BANK PRODUCT ORDER VIKAS Final Result Performing Organization Address [facility] de Phone Number BLOOD BANK [address] documented in this encounter Visit [...] documented as of this encounter Care Teams Dubbing Machine Operator Relationship Specialty Start Date End Date Zhao Harris MD [address] [place] [address] PCP - General 12/03/20 documented as of this encounter
--- OUTSIDE RECORDS SUMMARY | 2025-01-14 08:07 | XMS_ITS | Encounter Summary ---
Author Organization [facility] Address [address] [place] [address] Care Team Providers Care New Car Sales Manager Name Role Phone Zhao Harris MD Primary Care Provider + [phone] Reason for Visit * Episode Based Medications (Routine) - Authorized Specialty Diagnoses / Procedures Referred By Justice mcgee Referred To Contact Diagnoses Myelodysplasia (myelodysplastic syndrome) (CMS/HCC) Procedures Decitabine Daily x 5 / Venetoclax Every 28 Days Virgen Vargas MD [address] [phone] Phone: tel: fax: Virgen Vargas MD [address] [phone] Phone: tel: fax: Referral ID Status Reason Start Date Expiration Date V isits Requested Visits Authorized [id number] Authorized 01/13/2025 07/15/2026 1 30 Encounter Details Date Type Department Care Team (Latest Contact Info) Description 01/14/2025 8:07 AM EDT - 01/14/2025 11:59 PM EDT Hospital Encounter [facility] Infusion Clinic 1 [address] [place] [phone] Myelodysplasia (myelodysplastic syndrome) (CMS/HCC) (Primary Dx) Discharge [...] drink first t manav in the morning (EYE-BANK RUNNER) to steady your nerves or to [...] 5 MG tabletIndications :Coronary artery disease involving [place] heart with angina pectoris, unspecified vessel or lesion type (CMS/HCC),Hyperte nsion, unspecified type Take 1 tablet (5 mg) by mouth daily. 90 tablet 3 09/11/2024 HYDROcodone-aceta minophen ([place]) 5-325 MG tablet Take 1 tablet by [...] MG SL tabletIndications :Coronary artery disease involving [place] heart with angina pectoris, unspecified vessel or [...] [facility] st Contact Info) Description 02/02/2025 11:00 AM EDT Appointment PAV A Interventional Radiology [address] [place] [address] 02/10/2025 8:30 AM EDT Clinical Support PAV Hematology/BMT and Cellular Therapy Program [address] [place] [address] 02/10/2025 9:00 AM EDT Office Visit PAV Hematology/BMT and Cellular Therapy Program [address] [phone] Elaina Boss, ARAM 800 [facility] [address] [place] [phone] 02/10/2025 10:30 AM EDT Appointment [facility] Infusion Clinic 1 [address] [place] [phone] 02/11/2025 2:00 PM EDT Appointment [facility] Infusion Clinic 1 [address] [place] [address] 02/12/2025 2:00 PM EDT Appointment [facility] Infusion Clinic 1 [address] [place] [address] 02/13/2025 2:00 PM EDT Appointment [facility] Infusion Clinic 1 [address] [place] [address] 02/14/2025 2:00 PM EDT Appointment [facility] Infusion Clinic 1 [address] [place] [address] 03/10/2025 8:30 AM EDT Clinical Support PAV Hematology/BMT and Cellular Therapy Program [address] [phone] 03/10/2025 9:00 AM EDT Office Visit PAV Hematology/BMT and Cellular Therapy Program [address] [phone] Isaura Wynn, POSITION DESCRIPTION MANAGER 800 [facility] [address] [place] [phone] 03/10/2025 11:20 AM EDT Office Visit Pav CC Head, Neck & Respiratory 800 [facility], 2nd [place] [phone] Elsa Razo, POSITION DESCRIPTION MANAGER [address] [place] [phone] documented as of this encounter Procedures Procedure [...] LAB HEMATOLOGY METHOD 01/14/2025 10:14 AM EDT [facility] RBC Count 2.75(L) 4.60 - 6.10 10*6/uL LAB HEMATOLOGY METHOD 01/14/2025 10:14 AM EDT [facility] HGB 8.2(L) 13.7 - 17.5 g/dL LAB HEMATOLOGY METHOD 01/14/2025 10:14 AM EDT [facility] HCT 23.2(L) 40.0 - 51.0 % LAB HEMATOLOGY METHOD 01/14/2025 10:14 AM EDT [facility] Platelet Count 21(L) 155 - 369 10*3/uL LAB HEMATOLOGY METHOD 01/14/2025 10:14 AM EDT [facility] MCV 84 79 - 98 fL LAB HEMATOLOGY METHOD 01/14/2025 10:14 AM EDT [facility] MCH 29.8 26.0 - 32.0 pg LAB HEMATOLOGY METHOD 01/14/2025 10:14 AM EDT [facility] MCHC 35.3 30.7 - 35.5 g/dL LAB HEMATOLOGY METHOD 01/14/2025 10:[address] [facility] RDW 14.3 11.5 - 14.5 % LAB HEMATOLOGY METHOD 01/14/2025 10:14 AM EDT [facility] MPV 8.1(L) 8.8 - 12.5 fL LAB HEMATOLOGY METHOD 01/14/2025 10:14 AM EDT [facility] nRBC 0.0 <=0.0 per 100 WBCs LAB HEMATOLOGY METHOD 01/14/2025 10:14 AM EDT [facility] Differential Type Automated LAB HEMATOLOGY METHOD 01/14/2025 10:14 AM [facility] Neutrophils % 4 % LAB HEMATOLOGY METHOD 01/14/2025 10:14 AM EDT [facility] Lymphocytes % 92 % LAB HEMATOLOGY METHOD 01/14/2025 10:14 AM EDT [facility] Monocytes % 4 % LAB HEMATOLOGY METHOD 01/14/2025 10:14 AM [facility] Eosinophils % 0 % LAB HEMATOLOGY METHOD 01/14/2025 10:14 AM [facility] Basophils % 0 % LAB HEMATOLOGY METHOD 01/14/2025 10:14 AM [facility] Immature Granulocytes % 0 % LAB HEMATOLOGY METHOD 01/14/2025 10:14 AM [facility] Neutrophils Absolute 0.02(LL) 1.60 - 6.10 10*3/uL LAB HEMATOLOGY METHOD 01/14/2025 10:14 AM [facility] Lymphocytes Absolute 0.50(L) 1.20 - 3.90 10*3/uL LAB HEMATOLOGY METHOD 01/14/2025 10:14 AM [facility] Monocytes Absolute 0.02(L) 0.30 - 0.90 10*3/uL LAB HEMATOLOGY METHOD 01/14/2025 10:14 AM [facility] Eosinophils Absolute 0.00 0.00 - 0.50 10*3/uL LAB HEMATOLOGY METHOD 01/14/2025 10:14 AM EDT [facility] Basophils Absolute 0.00 0.00 - 0.10 10*3/uL LAB HEMATOLOGY METHOD 01/14/2025 10:14 AM [facility] Immature Granulocytes Absolute 0.00 0.00 - 0.06 10*3/uL LAB HEMATOLOGY METHOD 01/14/2025 10:14 AM [facility] Blood Blood sample taken from central line / Unknown (Port) Long-term Catheter / Unknown 01/14/2025 9:06 AM EDT 01/14/2025 9:14 AM EDT Narrative [facility] - 01/14/2025 10:14 AM EDT Therapeutic decision making should be based on absolute values, rather than percentages. us Virgen Vargas MD LAB BLOOD ORDERABLES Final Re sult [facility] [address] [place] [phone] * (ABNORMAL) BASIC METABOLIC PANEL (01/14/2025 9:06 AM EDT) Glucose, Plasma 101(H) 74 - 99 mg/dL 01/14/2025 9:58 AM EDT [facility] BUN, Plasma 9 8 - 23 mg/dL 01/14/2025 9:58 AM EDT [facility] Creatinine, Plasma 0.71 0.70 - 1.20 mg/dL 01/14/2025 9:58 AM EDT [facility] BUN/Creatinine Ratio 13 01/14/2025 9:58 AM EDT [facility] Sodium, Plasma 140 136 - 145 mmol/L 01/14/2025 9:58 AM EDT [facility] Potassium, Plasma 4.3 3.6 - 4.9 mmol/L 01/14/2025 9:58 AM EDT [facility] Chloride, Plasma 110(H) 97 - 107 mmol/L 01/14/2025 9:58 AM EDT [facility] CO2, Plasma 21(L) 22 - 29 mmol/L 01/14/2025 9:58 AM EDT [facility] Anion Gap 9 6 - 16 mmol/L 01/14/2025 9:58 AM EDT [facility] Total Calcium, Plasma 8.6(L) 8.9 - 10.2 mg/dL 01/14/2025 9:58 AM EDT [facility] eGFRcr 99.3 mL/min/1.7 3m*2 01/14/2025 9:58 AM EDT [facility] Comment:Reported eGFRcr in m L/min/1.73m2 is based the CKD-EPI 2020 equation that does not use a race coefficient. Blood Blood sample taken from central line / Unknown (Port) Long-term Catheter / Unknown 01/14/2025 9:06 AM EDT 01/14/2025 9:25 AM EDT Virgen Vargas MD LAB BLOOD ORDERABLES Final Re sult Performing Organization Address City/[facility]/ZIP Co de Phone Number [facility] [address] [place] [address] * (ABNORMAL) Uric acid (01/14/2025 9:06 AM EDT) Uric Acid, Plasma 3.0(L) 3.7 - 8.0 mg/dL 01/14/2025 9:[address] [facility] Blood Blood sample taken from central line / Unknown (Port) Long-term Catheter / Unknown 01/14/2025 9:06 AM EDT 01/14/2025 9:25 AM EDT Virgen Vargas MD LAB BLOOD ORDERABLES Final Re sult Performing Organization Address City/[facility]/[place] [address] * Phosphorus (01/14/2025 9:06 AM EDT) Phosphorus, Plasma 3.6 2.5 - 4.5 mg/dL 01/14/2025 9:[address] [facility] Blood Blood sample taken from central line / Unknown (Port) Long-term Catheter / Unknown 01/14/2025 9:06 AM EDT 01/14/2025 9:25 AM EDT Virgen Vargas MD LAB BLOOD ORDERABLES Final Re sult [facility] [address] [place] [address] * Magnesium (01/14/2025 9:06 AM EDT) Magnesium, Plasma 2.2 1.9 - 2.4 mg/dL 01/14/2025 9:58 AM EDT [facility] Blood Blood sample taken from central line / Unknown (Port) Long-term Catheter / Unknown 01/14/2025 9:06 AM EDT 01/14/2025 9:25 AM EDT Virgen Vargas MD LAB BLOOD ORDERABLES Final Re sult Performing Organization Address [facility]/ZIP Co de Phone Number [facility] [address] [place] [address] * LACTATE DEHYDROGENASE (01/14/2025 9:06 AM EDT) LDH, Plasma 195 116 - 250 U/L 01/14/2025 9:58 AM EDT [facility] Blood Blood sample taken from central line / Unknown (Port) Long-term Catheter / Unknown 01/14/2025 9:06 AM EDT 01/14/2025 9:25 AM EDT Virgen Vargas MD LAB BLOOD ORDERABLES Final Re sult Performing Organization Address [facility]/[place]IP [place] [address] documented in this encounter Visit Diagnoses Diagnosis [...] documented as of this encounter Care Teams New Car Sales Manager Relationship Specialty Start Date End Date Zhao Harris MD [address] [place] [address] PCP - General 12/03/20 documented as of this encounter
--- OUTSIDE RECORDS SUMMARY | 2025-01-15 08:11 | XMS_ITS | Encounter Summary ---
Author Organization [facility] Address [address] [place] [address] Care Team Providers Care Sail Repairer Name Role Phone Zhao Harris MD Primary Care Provider + [phone] Reason for Visit * Episode Based Medications (Routine) - Authorized Specialty Diagnoses / Procedures Referred By Justice mcgee Referred To Contact Diagnoses Myelodysplasia (myelodysplastic syndrome) (CMS/HCC) Procedures Decitabine Daily x 5 / Venetoclax Every 28 Days Virgen Vargas MD [facility] [address] [address] Phone: tel: fax: Virgen Vargas MD [address] [address] Phone: tel: fax: Referral ID Status Reason Start Date Expiration Date V isits Requested Visits Authorized [id number] Authorized 01/13/2025 07/15/2026 1 30 Encounter Details Date Type Department Care Team (Latest Contact Info) Description 01/15/2025 8:11 AM EDT - 01/15/2025 9:57 AM EDT Hospital Encounter [facility] H Infusion 800 [place] [phone] Myelodysplasia (myelodysplastic syndrome) (CMS/HCC) (Primary Dx); Thrombocytopenia [...] drink first t manav in the morning (EYE-INDEPENDENT SALES REPRESENTATIVE) to steady your nerves or [...] 5 MG tabletIndications :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, unspecified vessel or [...] Appointment P[facility] A Interventional Radiology [address] [place] [address] 02/10/2025 8:30 AM EDT Clinical Support [facility] CC Hematology/BMT and Cellular Therapy Program [address] [phone] 02/10/2025 9:00 AM EDT Office Visit [facility] Hematology/BMT and Cellular Therapy Program [address] [phone] Elaina Boss, PA [facility] [address] [place] [phone] 02/10/2025 10:30 AM EDT Appointment [facility] 1 [address] [place] [address] 02/11/2025 2:00 PM EDT Appointment [facility] 1 [address] [place] [address] 02/12/2025 2:00 PM EDT Appointment [facility] 1 [address] [place] [address] 02/13/2025 2:00 PM EDT Appointment [facility] 1 [address] [place] [address] 02/14/2025 2:00 PM EDT Appointment [facility] 1 [address] [place] [address] 03/10/2025 8:30 AM EDT Clinical Support [facility] Hematology/BMT and Cellular Therapy Program [address] [address] 03/10/2025 9:00 AM EDT Office Visit [facility] Hematology/BMT and Cellular Therapy Program [address] [phone] Isaura Wynn, BATCH UNIT TREATER [facility] [address] [phone] 03/10/2025 11:20 AM EDT Office Visit Pav Head, Neck & Respiratory 800 [facility], 2nd [place] [address] Damari Razosey Marquis, BATCH UNIT TREATER [address] [place] [address] documented as of this encounter Procedures Procedure [...] ORDERAB LES Final Result BLOOD BANK 800 [place] [address], * Prepare Leukocyte Reduced Platelets: 1 Units (01/15/2025 9:55 AM EDT) Product Code X1000M56 CH BLOO D BANK Dispense Status Transfused BLOOD BANK Blood Expiration Date [id number] BLOOD BANK Unit Number [id number] CH B LOOD BANK Product Blood Type 6200 BLOOD BANK Blood Type A+ BLOOD BANK Blood Venous blood specimen / Unknown us Kayli CHIU BLOOD BANK PRODUCT ORDER VIKAS Final Result BLOOD BANK [address] [place] [address], * (ABNORMAL) CBC and differential (01/15/2025 8:17 AM EDT) WBC Count 0.53(LL) 3.70 - 10.30 10*3/uL LAB HEMATOLOGY METHOD 01/15/2025 11:53 AM EDT [facility] RBC Count 2.82(L) 4.60 - 6.10 10*6/uL LAB HEMATOLOGY METHOD 01/15/2025 11:53 AM EDT [facility] HGB 8.2(L) 13.7 - 17.5 g/dL LAB HEMATOLOGY METHOD 01/15/2025 11:53 AM EDT [facility] HCT 24.0(L) 40.0 - 51.0 % LAB HEMATOLOGY METHOD 01/15/2025 11:53 AM EDT [facility] Platelet Count 18(LL) 155 - 369 10*3/uL LAB HEMATOLOGY METHOD 01/15/2025 11:53 AM EDT [facility] MCV 85 79 - 98 fL LAB HEMATOLOGY METHOD 01/15/2025 11:53 AM EDT [facility] MCH 29.1 26.0 - 32.0 pg LAB HEMATOLOGY METHOD 01/15/2025 11:53 AM EDT [facility] MCHC 34.2 30.7 - 35.5 g/dL LAB HEMATOLOGY METHOD 01/15/2025 11:53 AM EDT [facility] RDW 14.2 11.5 - 14.5 % LAB HEMATOLOGY METHOD 01/15/2025 11:53 AM EDT [facility] MPV 9.3 8.8 - 12.5 fL LAB HEMATOLOGY METHOD 01/15/2025 11:53 AM EDT [facility] nRBC 0.0 <=0.0 per 100 WBCs LAB HEMATOLOGY METHOD 01/15/2025 11:53 AM EDT [facility] Differential Type Automated LAB HEMATOLOGY METHOD 01/15/2025 11:53 AM EDT [facility] Neutrophils % 8 % LAB HEMATOLOGY METHOD 01/15/2025 11:53 AM EDT [facility] Lymphocytes % 88 % LAB HEMATOLOGY METHOD 01/15/2025 11:53 AM EDT [facility] Monocytes % 4 % LAB HEMATOLOGY METHOD 01/15/2025 11:53 AM EDT [facility] Eosinophils % 0 % LAB HEMATOLOGY METHOD 01/15/2025 11:53 AM EDT [facility] Basophils % 0 % LAB HEMATOLOGY METHOD 01/15/2025 11:53 AM EDT [facility] Immature Granulocytes % 0 % LAB HEMATOLOGY METHOD 01/15/2025 11:53 AM EDT [facility] Neutrophils Absolute 0.04(LL) 1.60 - 6.10 10*3/uL LAB HEMATOLOGY METHOD 01/15/2025 11:53 AM EDT [facility] Lymphocytes Absolute 0.47(L) 1.20 - 3.90 10*3/uL LAB HEMATOLOGY METHOD 01/15/2025 11:53 AM EDT [facility] Monocytes Absolute 0.02(L) 0.30 - 0.90 10*3/uL LAB HEMATOLOGY METHOD 01/15/2025 11:53 AM EDT [facility] Eosinophils Absolute 0.00 0.00 - 0.50 10*3/uL LAB HEMATOLOGY METHOD 01/15/2025 11:53 AM EDT [facility] Basophils Absolute 0.00 0.00 - 0.10 10*3/uL LAB HEMATOLOGY METHOD 01/15/2025 11:53 AM EDT [facility] Immature Granulocytes Absolute 0.00 0.00 - 0.06 10*3/uL LAB HEMATOLOGY METHOD 01/15/2025 11:53 AM EDT [facility] Blood Blood sample taken from central line / Unknown (Port) Long-term Catheter / Unknown 01/15/2025 8:17 AM EDT 01/15/2025 8:59 AM EDT [facility] - 01/15/2025 11:53 AM EDT Therapeutic decision making should be based on absolute values, rather than percentages. us Virgen Vargas MD LAB BLOOD ORDERABLES Final Re sult [facility] [address] [place] [address] * (ABNORMAL) BASIC METABOLIC PANEL (01/15/2025 8:17 AM EDT) Glucose, Plasma 96 74 - 99 mg/dL 01/15/2025 9:19 AM EDT [facility] BUN, Plasma 12 8 - 23 mg/dL 01/15/2025 9:19 AM EDT [facility] Creatinine, Plasma 0.71 0.70 - 1.20 mg/dL 01/15/2025 9:19 AM EDT [facility] BUN/Creatinine Ratio 17 01/15/2025 9:19 AM EDT [facility] Sodium, Plasma 139 136 - 145 mmol/L 01/15/2025 9:19 AM EDT [facility] Potassium, Plasma 4.1 3.6 - 4.9 mmol/L 01/15/2025 9:19 AM EDT [facility] Chloride, Plasma 108(H) 97 - 107 mmol/L 01/15/2025 9:19 AM EDT [facility] CO2, Plasma 21(L) 22 - 29 mmol/L 01/15/2025 9:19 AM EDT [facility] Anion Gap 10 6 - 16 mmol/L 01/15/2025 9:19 AM EDT [facility] Total Calcium, Plasma 8.9 8.9 - 10.2 mg/dL 01/15/2025 9:19 AM EDT [facility] eGFRcr 99.3 mL/min/1.7 3m*2 01/15/2025 9:19 AM EDT [facility] Comment:Reported eGFRcr in m L/min/1.73m2 is based the CKD-EPI 2020 equation that does not use a race coefficient. Blood Blood sample taken from central line / Unknown (Port) Long-term Catheter / Unknown 01/15/2025 8:17 AM EDT 01/15/2025 8:47 AM EDT us Virgen Vargas MD LAB BLOOD ORDERABLES Final Re sult [facility] [address] [place] [address] * (ABNORMAL) Uric acid (01/15/2025 8:17 AM EDT) Uric Acid, Plasma 3.0(L) 3.7 - 8.0 mg/dL 01/15/2025 9:19 AM EDT [facility] Blood Blood sample taken from central line / Unknown (Port) Long-term Catheter / Unknown 01/15/2025 8:17 AM EDT 01/15/2025 8:47 AM EDT Virgen Vargas MD LAB BLOOD ORDERABLES [place] [address] * Phosphorus (01/15/2025 8:17 AM EDT) Phosphorus, Plasma 3.1 2.5 - 4.5 mg/dL 01/15/2025 9:19 AM EDT [facility] Blood Blood sample taken from central line / Unknown (Port) Long-term Catheter / Unknown 01/15/2025 8:17 AM EDT 01/15/2025 8:47 AM EDT Virgen Vargas MD LAB BLOOD ORDERABLES [place] [address] * Magnesium (01/15/2025 8:17 AM EDT) Magnesium, Plasma 2.2 1.9 - 2.4 mg/dL 01/15/2025 9:19 AM EDT [facility] Blood Blood sample taken from central line / Unknown (Port) Long-term Catheter / Unknown 01/15/2025 8:17 AM EDT 01/15/2025 8:47 AM EDT Virgen Vargas MD LAB BLOOD ORDERABLES Final Re sult [facility] [address] [place] [address] * LACTATE DEHYDROGENASE (01/15/2025 8:17 AM EDT) LDH, Plasma 192 116 - 250 U/L 01/15/2025 9:19 AM EDT [facility] Blood Blood sample taken from central line / Unknown (Port) Long-term Catheter / Unknown 01/15/2025 8:17 AM EDT 01/15/2025 8:47 AM EDT us Virgen Vargas MD LAB BLOOD ORDERABLES Final [facility] Performing Organization Address [facility]/ZIP Co de Phone Number [facility] [address] [place] [address] documented in this encounter Visit Diagnoses Diagnosis [...] documented as of this encounter Care Teams Sail Repairer Relationship Specialty Start Date End Date Zhao Harris MD [address] [place] [address] PCP - General 12/03/20 documented as of this encounter
--- OUTSIDE RECORDS SUMMARY | 2025-01-15 09:58 | XMS_ITS | Encounter Summary ---
Author Organization Healthcare Address [address] [place] [address] Care Team Providers Care Electrical Logger Name Role Phone Zhao Harris MD Primary Care Provider [phone] Encounter Details Date Type Department Care Team (Latest Contact Info) Description 01/15/2025 9:58 AM EDT - 01/15/2025 11:59 PM EDT Hospital Encounter [facility] H Infusion [address] [place] [address] Discharge Disposition: Home or Self Care Social [...] drink first t manav in the morning (EYE-LUDLOW MACHINE OPERATOR) to steady your nerves or [...] 5 MG tabletIndications :Coronary artery disease involving [place] heart with angina pectoris, unspecified vessel or lesion type (CMS/HCC),Hyperte nsion, unspecified type Take 1 tablet (5 mg) by mouth daily. 90 tablet 3 09/11/2024 HYDROcodone-aceta minophen ([place]) 5-325 MG tablet Take 1 tablet by [...] MG SL tabletIndications :Coronary artery disease involving nenana heart with angina pectoris, unspecified vessel or [...] Appointment [facility] Interventional Radiology [address] [place] [address] 02/10/2025 8:30 AM EDT Clinical Support P[facility] CC Hematology/BMT and Cellular Therapy Program [address] [address] 02/10/2025 9:00 AM EDT Office Visit [facility] Hematology/BMT and Cellular Therapy Program [address] [address] Elaina Boss, PA 800 [facility] [address] [place] [phone] 02/10/2025 10:30 AM EDT Appointment [facility]fusion [facility] 1 [address] [place] [address] 02/11/2025 2:00 PM EDT Appointment [facility] 1 [address] [place] [address] 02/12/2025 2:00 PM EDT Appointment [facility]fusion [facility] 1 [address] [place] [address] 02/13/2025 2:00 PM EDT Appointment [facility] 1 [address] [place] [address] 02/14/2025 2:00 PM EDT Appointment [facility]fusion [facility] 1 [address] [place] [address] 03/10/2025 8:30 AM EDT Clinical Support [facility] Hematology/BMT and Cellular Therapy Program [address] [address] 03/10/2025 9:00 AM EDT Office Visit [facility] Hematology/BMT and Cellular Therapy Program [address] [address] Isaura Wynn, ESTRELLA 800 [facility] [address] [phone] 03/10/2025 11:20 AM EDT Office Visit Pav Head, Neck & Respiratory 800 [facility], 2nd [place] [phone] Elsa Razo, SENIOR ENVIRONMENTAL ENGINEER [address] [place] [phone] documented as of this encounter Visit Diagnoses [...] documented as of this encounter Care Teams Electrical Logger Relationship Specialty Start Date End Date Zhao Harris MD [address] [place], [place] [phone] PCP - General 12/03/20 documented as of this encounter
--- OUTSIDE RECORDS SUMMARY | 2025-01-16 07:55 | XMS_ITS | Encounter Summary ---
Author Organization [facility] Address [address] [place] [address] Care Team Providers Care Building Supplies Salesperson Retail Name Role Phone Zhao Harris MD Primary Care Provider + [phone] Reason for Visit * Episode Based Medications (Routine) - Authorized Specialty Diagnoses / Procedures Referred By Justice mcgee Referred To Contact Diagnoses Myelodysplasia (myelodysplastic syndrome) (CMS/HCC) Procedures Decitabine Daily x 5 / Venetoclax Every 28 Days Virgen Vargas MD 800 [facility] [address] [address] Phone: tel: fax: Virgen Vargas MD [address] [phone] Phone: tel: fax: Referral ID Status Reason Start Date Expiration Date V isits Requested Visits Authorized [id number] Authorized 01/13/2025 07/15/2026 1 30 Encounter Details Date Type Department Care Team (Latest Contact Info) Description 01/16/2025 7:55 AM EDT - 01/16/2025 11:59 PM EDT Hospital Encounter P[facility] H Infusion 800 [place] [phone] Myelodysplasia (myelodysplastic syndrome) (CMS/HCC) (Primary Dx) Discharge [...] first t manav in the morning (EYE-CAMPUS AMBASSADOR) to steady your nerves or to get [...] 5 MG tabletIndications :Coronary artery disease involving [place] heart with angina pectoris, unspecified vessel or lesion type (CMS/HCC),Hyperte nsion, unspecified type Take 1 tablet (5 mg) by mouth daily. 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 pectoris, unspecified vessel or [...] Appointment PAV A Interventional Radiology [address] [place] [address] 02/10/2025 8:30 AM EDT Clinical Support PAV CC Hematology/BMT and Cellular Therapy Program [address] [place] [address] 02/10/2025 9:00 AM EDT Office Visit PAV Hematology/BMT and Cellular Therapy Program [address] [phone] Elaina Boss, PA 800 [facility] [address] [place] [phone] 02/10/2025 10:30 AM EDT Appointment [facility] Infusion [facility] 1 [address] [place] [address] 02/11/2025 2:00 PM EDT Appointment [facility] 1 [address] [place] [phone] 02/12/2025 2:00 PM EDT Appointment [facility] 1 [address] [place] [phone] 02/13/2025 2:00 PM EDT Appointment [facility] 1 [address] [place] [address] 02/14/2025 2:00 PM EDT Appointment [facility] 1 [address] [place] [address] 03/10/2025 8:30 AM EDT Clinical Support P[facility] Hematology/BMT and Cellular Therapy Program [address] [phone] 03/10/2025 9:00 AM EDT Office Visit PAV Hematology/BMT and Cellular Therapy Program [address] [phone] Isaura Wynn, REACHER 800 [facility] [address] [place] [phone] 03/10/2025 11:20 AM EDT Office Visit Pav Head, Neck & Respiratory 800 [facility], 2nd [place] [phone] Elsa Razo, REACHER 800 [place] [phone] documented as of this encounter Procedures Procedure Name Priority Date/Time Associated Diagnosis Comments TYPE AND SCREEN Routine 01/16/2025 9:54 AM EDT PLATELET COUNT, BLOOD STAT 01/16/2025 8:12 AM EDT CBC W/O DIFFERENTIAL STAT Add-on 01/16/2025 8:12 AM EDT documented in this encounter Results * Type and Screen (01/16/2025 9:54 AM EDT) Pathologist [facility] ABO/Rh O Negative 01/16/2025 9:51 AM EDT BLOOD BANK Antibody Screen Negative 01/16/2025 9:51 AM EDT BLOOD BANK Specimen Expiration 01/19/2025 23:59 01/16/2025 9:51 AM EDT BLOOD BANK Blood Venous blood specimen / Unknown Venipuncture / Unknown 01/16/2025 9:54 AM EDT 01/16/2025 10:02 AM EDT us Virgen Vargas MD LAB BLOOD BANK TEST ORDERABLE S Final Result BLOOD BANK 800 [place] [address], * (ABNORMAL) CBC W/O Differential (01/16/2025 8:12 AM EDT) WBC Count 0.49(LL) 3.70 - 10.30 10*3/uL LAB HEMATOLOGY METHOD 01/16/2025 11:30 AM EDT [facility] RBC Count 2.65(L) 4.60 - 6.10 10*6/uL LAB HEMATOLOGY METHOD 01/16/2025 11:30 AM EDT [facility] HGB 8.0(L) 13.7 - 17.5 g/dL LAB HEMATOLOGY METHOD 01/16/2025 11:30 AM EDT [facility] HCT 23.0(L) 40.0 - 51.0 % LAB HEMATOLOGY METHOD 01/16/2025 11:30 AM EDT [facility] Platelet Count 39(L) 155 - 369 10*3/uL LAB HEMATOLOGY METHOD 01/16/2025 11:30 AM EDT [facility] MCV 87 79 - 98 fL LAB HEMATOLOGY METHOD 01/16/2025 11:30 AM EDT [facility] MCH 30.2 26.0 - 32.0 pg LAB HEMATOLOGY METHOD 01/16/2025 11:30 AM EDT [facility] MCHC 34.8 30.7 - 35.5 g/dL LAB HEMATOLOGY METHOD 01/16/2025 11:30 AM EDT [facility] RDW 14.5 11.5 - 14.5 % LAB HEMATOLOGY METHOD 01/16/2025 11:30 AM EDT [facility] MPV 10.2 8.8 - 12.5 fL LAB HEMATOLOGY METHOD 01/16/2025 11:30 AM EDT [facility] nRBC 0.0 <=0.0 per 100 WBCs LAB HEMATOLOGY METHOD 01/16/2025 11:30 AM EDT [facility] Blood Blood sample taken from central line / Unknown Venipuncture / Unknown 01/16/2025 8:12 AM EDT 01/16/2025 8:27 AM EDT Virgen Vargas MD LAB BLOOD ORDERABLES Final Re sult [facility] 800 [place] [address] * (ABNORMAL) Platelet count (01/16/2025 8:12 AM EDT) Platelet Count 39(L) 155 - 369 10*3/uL LAB HEMATOLOGY METHOD 01/16/2025 8:38 AM EDT [facility] Blood Blood sample taken from central line / Unknown Venipuncture / Unknown 01/16/2025 8:12 AM EDT 01/16/2025 8:27 AM EDT Virgen Vargas MD LAB BLOOD ORDERABLES Final Re sult [facility] [address] [place] [address] documented in this encounter Visit Diagnoses Diagnosis [...] documented as of this encounter Care Teams Building Supplies Salesperson Retail Relationship Specialty Start Date End Date Zhao Harris MD [address] [place] [address] [facility] [address] [place] [id number] PCP - General 12/03/20 documented as of this encounter
--- OUTSIDE RECORDS SUMMARY | 2025-01-17 07:45 | XMS_ITS | Encounter Summary ---
Author Organization [facility] Address [address] [place] [address] Care Team Providers Care Cooky Machine Operator Name Role Phone Zhao Harris MD Primary Care Provider + [phone] Reason for Visit * Episode Based Medications (Routine) - Authorized Specialty Diagnoses / Procedures Referred By Justice mcgee Referred To Contact Diagnoses Myelodysplasia (myelodysplastic syndrome) (CMS/HCC) Procedures Decitabine Daily x 5 / Venetoclax Every 28 Days Virgen Vargas MD 800 [facility] Cancer [address] [address] Phone: tel: fax: Virgen Vargas MD [address] [address] Phone: tel: fax: Referral ID Status Reason Start Date Expiration Date V isits Requested Visits Authorized [id number] Authorized 01/13/2025 07/15/2026 1 30 Encounter Details Date Type Department Care Team (Latest Contact Info) Description 01/17/2025 7:45 AM EDT - 01/17/2025 11:59 PM EDT Hospital Encounter PAV H Infusion 800 [place] [phone] Myelodysplasia (myelodysplastic syndrome) (CMS/HCC) (Primary Dx); Thrombocytopenia [...] drink first t manav in the morning (EYE-QUANTITATIVE SOFTWARE ENGINEER) to steady your nerves or to [...] 5 MG tabletIndications :Coronary artery disease involving [place] heart with angina pectoris, unspecified vessel or lesion type (CMS/HCC),Hyperte nsion, unspecified type Take 1 tablet (5 mg) by mouth daily. 90 tablet 3 09/11/2024 HYDROcodone-aceta minophen ([place]) 5-325 MG tablet Take 1 tablet by [...] MG SL tabletIndications :Coronary artery disease involving [place] heart with angina pectoris, unspecified vessel or [...] Appointment PAV A Interventional Radiology [address] [place] [address] 02/10/2025 8:30 AM EDT Clinical Support P[facility] Hematology/BMT and Cellular Therapy Program [address] [place] [address] 02/10/2025 9:00 AM EDT Office Visit [facility] Hematology/BMT and Cellular Therapy Program [address] [phone] Elaina Boss PA 800 [facility] [address] [place] [phone] 02/10/2025 10:30 AM EDT Appointment [facility] Infusion Clinic 1 744 [place] [address] 02/11/2025 2:00 PM EDT Appointment [facility] 1 744 [place] [address] 02/12/2025 2:00 PM EDT Appointment [facility]fusion [facility] 1 7[address] [place] [address] 02/13/2025 2:00 PM EDT Appointment [facility]fusion [facility] 1 744 [place] [address] 02/14/2025 2:00 PM EDT Appointment [facility] Infusion [facility] 1 744 [place] [address] 03/10/2025 8:30 AM EDT Clinical Support [facility] Hematology/BMT and Cellular Therapy Program [address] [address] 03/10/2025 9:00 AM EDT Office Visit [facility] Hematology/BMT and Cellular Therapy Program [address] [phone] Isaura Wynn, SUPERVISOR STAVE CUTTING 800 [facility] [address] [place] [phone] 03/10/2025 11:20 AM EDT Office Visit Pav CC Head, Neck & Respiratory 800 [facility], 2nd [place] [address] Elsa Razo, SUPERVISOR STAVE CUTTING 800 [place] [phone] documented as of this encounter Procedures Procedure [...] Units, Irradiated (01/17/2025 8:56 AM EDT) Pathologist [facility] Product Code [id number] BLOO D BANK Dispense Status Transfused BLOOD BANK Blood Expiration Date [id number] BLOOD BANK Unit Number [id number] B LOOD BANK Product Blood Type 9500 BLOOD BANK Blood Type O- BLOOD BANK Crossmatch Compatible BLOOD BANK Other Kayli CHIU BLOOD BANK PRODUCT ORDER VIKAS Final Result Performing Organization Address City/State/[facility] Co de Phone Number BLOOD BANK 800 [place] [address], * (ABNORMAL) CBC and differential (01/17/2025 8:03 AM EDT) WBC Count 0.54(LL) 3.70 - 10.30 10*3/uL LAB HEMATOLOGY METHOD 01/17/2025 9:41 AM EDT [facility] RBC Count 2.55(L) 4.60 - 6.10 10*6/uL LAB HEMATOLOGY METHOD 01/17/2025 9:41 AM EDT [facility] HGB 7.6(L) 13.7 - 17.5 g/dL LAB HEMATOLOGY METHOD 01/17/2025 9:41 AM EDT [facility] HCT 21.6(L) 40.0 - 51.0 % LAB HEMATOLOGY METHOD 01/17/2025 9:41 AM EDT [facility] Platelet Count 23(L) 155 - 369 10*3/uL LAB HEMATOLOGY METHOD 01/17/2025 9:41 AM EDT [facility] MCV 85 79 - 98 fL LAB HEMATOLOGY METHOD 01/17/2025 9:41 AM EDT [facility] MCH 29.8 26.0 - 32.0 pg LAB HEMATOLOGY METHOD 01/17/2025 9:41 AM EDT [facility] MCHC 35.2 30.7 - 35.5 g/dL LAB HEMATOLOGY METHOD 01/17/2025 9:41 AM EDT [facility] RDW 14.2 11.5 - 14.5 % LAB HEMATOLOGY METHOD 01/17/2025 9:41 AM EDT [facility] MPV 9.0 8.8 - 12.5 fL LAB HEMATOLOGY METHOD 01/17/2025 9:41 AM EDT [facility] nRBC 0.0 <=0.0 per 100 WBCs LAB HEMATOLOGY METHOD 01/17/2025 9:41 AM EDT [facility] Differential Type Automated LAB HEMATOLOGY METHOD 01/17/2025 9:41 AM EDT [facility] Neutrophils % 7 % LAB HEMATOLOGY METHOD 01/17/2025 9:41 AM EDT [facility] Lymphocytes % 91 % LAB HEMATOLOGY METHOD 01/17/2025 9:41 AM EDT [facility] Monocytes % 2 % LAB HEMATOLOGY METHOD 01/17/2025 9:41 AM EDT [facility] Eosinophils % 0 % LAB HEMATOLOGY METHOD 01/17/2025 9:41 AM EDT [facility] Basophils % 0 % LAB HEMATOLOGY METHOD 01/17/2025 9:41 AM EDT [facility] Immature Granulocytes % 0 % LAB HEMATOLOGY METHOD 01/17/2025 9:41 AM EDT [facility] Neutrophils Absolute 0.04(LL) 1.60 - 6.10 10*3/uL LAB HEMATOLOGY METHOD 01/17/2025 9:41 AM EDT [facility] Lymphocytes Absolute 0.49(L) 1.20 - 3.90 10*3/uL LAB HEMATOLOGY METHOD 01/17/2025 9:41 AM EDT [facility] Monocytes Absolute 0.01(L) 0.30 - 0.90 10*3/uL LAB HEMATOLOGY METHOD 01/17/2025 9:41 AM EDT [facility] Eosinophils Absolute 0.00 0.00 - 0.50 10*3/uL LAB HEMATOLOGY METHOD 01/17/2025 9:41 AM EDT [facility] Basophils Absolute 0.00 0.00 - 0.10 10*3/uL LAB HEMATOLOGY METHOD 01/17/2025 9:41 AM EDT [facility] Immature Granulocytes Absolute 0.00 0.00 - 0.06 10*3/uL LAB HEMATOLOGY METHOD 01/17/2025 9:41 AM EDT [facility] Blood Blood sample taken from central line / Unknown (Port) Long-term Catheter / Unknown 01/17/2025 8:03 AM EDT 01/17/2025 8:07 AM EDT Narrative [facility] - 01/17/2025 9:41 AM EDT Therapeutic decision making should be based on absolute values, rather than percentages. us Virgen Vargas MD LAB BLOOD ORDERABLES Final Re sult [facility] 800 [place] [address] documented in this encounter Visit Diagnoses Diagnosis [...] documented as of this encounter Care Teams Cooky Machine Operator Relationship Specialty Start Date End Date Zhao Harris MD [address] [place] [address] PCP - General 12/03/20 documented as of this encounter
--- OUTSIDE RECORDS SUMMARY | 2025-01-29 08:18 | XMS_ITS | Encounter Summary ---
Author Organization [facility] Address [address] [place] [address] Care Team Providers Care Custom Van Converter Name Role Phone Zhao Harris MD Primary Care Provider [phone] Encounter Details Date Type Department Care Team [...] drink first t manav in the morning (EYE-GLASS SCULLION) to steady your nerves or to get [...] Appointment PAV A Interventional Radiology [address] [place] [address] 02/10/2025 8:30 AM EDT Clinical Support PAV CC Hematology/BMT and Cellular Therapy Program [address] [place] [address] [place] [address] 02/10/2025 9:00 AM EDT Office Visit PAV CC Hematology/BMT and Cellular Therapy Program [address] [place] [phone] Elaina Boss, PA 800 [facility] [address] [place] [address] 02/10/2025 10:30 AM EDT Appointment [facility] Infusion [facility] 1 [address] [place] [address] 02/11/2025 2:00 PM EDT Appointment [facility] Infusion [facility] 1 [address] [place] [address] 02/12/2025 2:00 PM EDT Appointment [facility]fusion [facility] 1 [address] [place] [address] 02/13/2025 2:00 PM EDT Appointment [facility]fusion [facility] 1 [address] [place] [address] 02/14/2025 2:00 PM EDT Appointment [facility] Infusion [facility] 1 4 [place] [address] 03/10/2025 8:30 AM EDT Clinical Support PAV CC Hematology/BMT and Cellular Therapy Program [address] [place] [address] [place] [address] 03/10/2025 9:00 AM EDT Office Visit PAV CC Hematology/BMT and Cellular Therapy Program [address] [place] [address] [place] [address] Isaura Wynn, ELECTRICAL LINESWORKER 800 [facility] [address] [place] [address] 03/10/2025 11:20 AM EDT Office Visit Pav CC Head, Neck & Respiratory 800 [facility], 2nd [place] [address] Elsa Razo, ELECTRICAL LINESWORKER [address] [place] [phone] documented as of this encounter Visit Diagnoses [...] documented as of this encounter Care Teams Custom Van Converter Relationship Specialty Start Date End Date Zhao Harris MD 1210 [facility] [address] [place] [phone] PCP - General 12/03/20 documented as of this encounter
--- OUTSIDE RECORDS SUMMARY | 2025-01-29 08:18 | XMS_ITS | Encounter Summary ---
Author Organization [facility] Address [address] [place] [address] Care Team Providers Care Bill Of Lading Clerk Name Role Phone Zhao Harris MD Primary Care Provider [phone] Reason for Visit * Reason Comments Med Refill Encounter Details Date Type Department Care Team ([facility] st Contact Info) Description 01/01/2025 Refill [place] [facility] [place] 800 [facility]. [address] [place] [address] Ra Best MD [address] [place] [address] Social History Tobacco Use Types Packs/Day Years [...] drink first t manav in the morning (EYE-VESSEL CREW MEMBER) to steady your nerves or [...] Appointment PAV A Interventional Radiology [address] [place] [address] 02/10/2025 8:30 AM EDT Clinical Support PAV Hematology/BMT and Cellular Therapy Program [address] [place] [address] 02/10/2025 9:00 AM EDT Office Visit PAV Hematology/BMT and Cellular Therapy Program [address] [address] Elaina Boss, ARAM 800 [facility] [address] [place] [address] 02/10/2025 10:30 AM EDT Appointment [facility] Infusion [facility] 1 [address] [place] [address] 02/11/2025 2:00 PM EDT Appointment [facility]fusion [facility] 1 [address] [place] [address] 02/12/2025 2:00 PM EDT Appointment [facility] 1 [address] [place] [address] 02/13/2025 2:00 PM EDT Appointment [facility]fusion [facility] 1 [address] [place] [address] 02/14/2025 2:00 PM EDT Appointment [facility] Infusion [facility] 1 [address] [place] [address] 03/10/2025 8:30 AM EDT Clinical Support PAV CC Hematology/BMT and Cellular Therapy Program [address] [address] 03/10/2025 9:00 AM EDT Office Visit PAV CC Hematology/BMT and Cellular Therapy Program 750 [facility] [place] [phone] Isaura Wynn, AUTOMOTIVE PRODUCT SPECIALIST 800 [facility] [address] [place] [phone] 03/10/2025 11:20 AM EDT Office Visit Pav CC Head, Neck & Respiratory 800 [facility], 2nd [place] [phone] Elsa Razo, AUTOMOTIVE PRODUCT SPECIALIST 800 [place] [phone] documented as of this encounter Visit Diagnoses [...] documented as of this encounter Care Teams Bill Of Lading Clerk Relationship Specialty Start Date End Date Zhao Harris MD 1210 [facility] [address] [place] [address] PCP - General 12/03/20 documented as of this encounter
--- OUTSIDE RECORDS SUMMARY | 2025-01-29 08:18 | XMS_ITS | Encounter Summary ---
Author Organization Healthcare Address [address] [place] [address] Care Team Providers Care Lithographing Machine Operator Name Role Phone Zhao Harris MD Primary Care Provider [phone] Encounter Details Date Type Department Care Team [...] drink first t manav in the morning (EYE-IT SECURITY MANAGER) to steady your nerves or to [...] PAV A Interventional Radiology [address] [place] [address] 02/10/2025 8:30 AM EDT Clinical Support P[facility] CC Hematology/BMT and Cellular Therapy Program [address] [address] 02/10/2025 9:00 AM EDT Office Visit [facility] Hematology/BMT and Cellular Therapy Program [address] [address] Elaina Boss PA 800 [facility] [address] [place] [address] 02/10/2025 10:30 AM EDT Appointment [facility] 1 744 [place] [address] 02/11/2025 2:00 PM EDT Appointment [facility] 1 [address] [place] [address] 02/12/2025 2:00 PM EDT Appointment [facility] 1 [address] [place] [address] 02/13/2025 2:00 PM EDT Appointment [facility] 1 [address] [place] [address] 02/14/2025 2:00 PM EDT Appointment [facility] 1 [address] [place] [address] 03/10/2025 8:30 AM EDT Clinical Support [facility] Hematology/BMT and Cellular Therapy Program [address] [place] [address] 03/10/2025 9:00 AM EDT Office Visit PAV Hematology/BMT and Cellular Therapy Program [address] [address] Isaura Wynn, TECHNICAL SUPPORT SPECIALIST 800 [facility] [address] [place] [phone] 03/10/2025 11:20 AM EDT Office Visit Pav CC Head, Neck & Respiratory 800 [facility], 2nd [place] [address] Elsa Razo, TECHNICAL SUPPORT SPECIALIST 800 [place] [phone] documented as of this encounter Visit Diagnoses [...] documented as of this encounter Care Teams Lithographing Machine Operator Relationship Specialty Start Date End Date Zhao Harris MD 1210 [facility] [address], [place] [address] PCP - General 12/03/20 documented as of this encounter
--- OUTSIDE RECORDS SUMMARY | 2025-01-29 08:19 | XMS_ITS ---
Author Organization [facility] Address [address] [place] [address] Care Team Providers Care Interchange Agent Name Role Phone Zhao Harris MD Primary Care Provider [phone] Active Problems Problem Noted Date Diagnosed Date [...] (CMS/HCC) Treatment Medications Current Day (Day 1 7, Cycle 1 - Planned for 01/29/2025) Next Day (Day 19, Cycle 1 - Planned for 01/31/2025) decitabine (Dacogen)decitabi ne (Dacogen) IVPBvenetoclax (Venclexta) No medications scheduled. No medications scheduled. HEM/BMT Blood Administration for Outpatient* Plan Start Date:10/22/2024 Plan Provider:Kayli Ospina PA Linked Problems Myelodysplasia (myelodysplas tic syndrome) ([facility]/HCC)Thrombocytopenia (CMS/HCC) Treatment Medications No medications scheduled. Past [...]
--- OUTSIDE RECORDS SUMMARY | 2025-01-29 08:19 | XMS_ITS | Encounter Summary ---
Author Organization Healthcare Address [address] [place] [address] Care Team Providers Care Hand Molder And Caster Name Role Phone Zhao Harris MD Primary Care Provider [phone] Encounter Details Date Type Department Care Team [...] first t manav in the morning (EYE-METAL BED ASSEMBLER) to steady your nerves or to [...] Behavior (Lifetime) No 9:46 AM EDT Gela Sniger documented as of this encounter Plan of Treatment Upcoming Encounters Date Type Department Care Team (Late st Contact Info) Description 02/02/2025 11:00 AM EDT Appointment PAV A Interventional Radiology [address] [place] [address] 02/10/2025 8:30 AM EDT Clinical Support PAV Hematology/BMT and Cellular Therapy Program [address] [address] 02/10/2025 9:00 AM EDT Office Visit PAV Hematology/BMT and Cellular Therapy Program [address] [place] [phone] Elaina Boss, AARM 800 [facility] [address] [place] [address] 02/10/2025 10:30 AM EDT Appointment [facility] 1 [address] [place] [address] 02/11/2025 2:00 PM EDT Appointment [facility] 1 [address] [place] [address] 02/12/2025 2:00 PM EDT Appointment [facility] 1 [address] [place] [address] 02/13/2025 2:00 PM EDT Appointment [facility] 1 [address] [place] [address] 02/14/2025 2:00 PM EDT Appointment [facility] 1 [address] [place] [address] 03/10/2025 8:30 AM EDT Clinical Support P[facility] CC Hematology/BMT and Cellular Therapy Program 750 [facility], [address] [place] [address] 03/10/2025 9:00 AM EDT Office Visit P[facility] CC Hematology/BMT and Cellular Therapy Program 750 [facility], [address] [place] [address] Isaura Wynn, SPRINKLER WORKER 800 [facility] [address] [place] [address] 03/10/2025 11:20 AM EDT Office Visit Pav CC Head, Neck & Respiratory 800 [facility], 2nd [place] [address] Elsa Razo, SPRINKLER WORKER 800 [place] [phone] documented as of this encounter Visit Diagnoses [...] as of this encounter Care Teams Hand Molder And Caster Relationship Specialty Start Date End Date Zhao Harris MD 1210 [facility] [address] [place] [address] PCP - General 12/03/20 documented as of this encounter
--- OUTSIDE RECORDS SUMMARY | 2025-01-29 08:19 | XMS_ITS | Encounter Summary ---
Author Organization Healthcare Address [address] [place] [address] Care Team Providers Care Repair Welder Name Role Phone Zhao Harris MD Primary Care Provider [phone] Encounter Details Date Type Department Care Team (Late st Contact Info) Description 12/04/2024 Telephone [facility] Inter[facility] [address] [place] [address] Martha William Social History Tobacco [...] first t manav in the morning (EYE-MANAGER BUSINESS PROCESS) to steady your nerves or to get [...] they need to bandage it. Requesting CB@ [phone] documented in this encounter Plan of Treatment Upcoming Encounters Date Type Department Care Team (Late st Contact Info) Description 02/02/2025 11:00 AM EDT Appointment PAV A Interventional Radiology [address] [place] [address] 02/10/2025 8:30 AM EDT Clinical Support PAV Hematology/BMT and Cellular Therapy Program [address] [address] 02/10/2025 9:00 AM EDT Office Visit P[facility] CC Hematology/BMT and Cellular Therapy Program [address] [address] Elaina Boss, ARAM 800 [facility] [address] [place] [address] 02/10/2025 10:30 AM EDT Appointment [facility] 1 [address] [place] [address] 02/11/2025 2:00 PM EDT Appointment [facility] 1 [address] [place] [address] 02/12/2025 2:00 PM EDT Appointment [facility] 1 [address] [place] [address] 02/13/2025 2:00 PM EDT Appointment [facility] 1 [address] [place] [address] 02/14/2025 2:00 PM EDT Appointment [facility] 1 [address] [place] [address] 03/10/2025 8:30 AM EDT Clinical Support PAV Hematology/BMT and Cellular Therapy Program [address] [address] 03/10/2025 9:00 AM EDT Office Visit PAV Hematology/BMT and Cellular Therapy Program [address] [address] Isaura Wynn, TELEMEDICINE PHYSICIAN 800 [facility] 1[address] [place] [address] 03/10/2025 11:20 AM EDT Office Visit Pav CC Head, Neck & Respiratory 800 [facility], 2nd [place] [address] Elsa Razo, TELEMEDICINE PHYSICIAN 800 [place] [phone] documented as of this encounter Visit Diagnoses [...] documented as of this encounter Care Teams Repair Welder Relationship Specialty Start Date End Date Zhao Harris MD [address] [address] PCP - General 12/03/20 documented as of this encounter
--- OUTSIDE RECORDS SUMMARY | 2025-01-29 08:19 | XMS_ITS | Encounter Summary ---
Author Organization [facility] Address [address] [place] [address] Care Team Providers Care Room Designer Name Role Phone Zhao Harris MD Primary Care Provider [phone] Encounter Details Date Type Department Care Team [...] drink first t manav in the morning (EYE-EXTENSION COURSE COUNSELOR) to steady your nerves or to [...] Team ([facility] Contact Info) Description 02/02/2025 11:00 AM EDT Appointment PAV A Interventional Radiology [address] [place] [address] 02/10/2025 8:30 AM EDT Clinical Support P[facility] CC Hematology/BMT and Cellular Therapy Program [address] [place] [address] [place] [address] 02/10/2025 9:00 AM EDT Office Visit [facility] CC Hematology/BMT and Cellular Therapy Program [address] [place] [phone] Elaina Boss, PA 800 [facility] [address] [place] [address] 02/10/2025 10:30 AM EDT Appointment [facility] 1 [address] [place] [address] 02/11/2025 2:00 PM EDT Appointment [facility] 1 [address] [place] [address] 02/12/2025 2:00 PM EDT Appointment [facility] 1 [address] [place] [address] 02/13/2025 2:00 PM EDT Appointment [facility] 1 [address] [place] [address] 02/14/2025 2:00 PM EDT Appointment [facility] 1 4 [place] [address] 03/10/2025 8:30 AM EDT Clinical Support P[facility] CC Hematology/BMT and Cellular Therapy Program [address] [place] [address] [place] [address] 03/10/2025 9:00 AM EDT Office Visit P[facility] CC Hematology/BMT and Cellular Therapy Program [address] [place] [address] [place] [address] Isaura Wynn, ANALYTICAL TECH 800 [facility] [address] [place] [address] 03/10/2025 11:20 AM EDT Office Visit Pav CC Head, Neck & Respiratory 800 [facility], 2nd [place] [address] Elsa Razo, ANALYTICAL TECH 800 [place] [address] documented as of this encounter Visit Diagnoses [...] documented as of this encounter Care Teams Room Designer Relationship Specialty Start Date End Date Zhao Harris MD 1210 [facility] [address] [place] [address] PCP - General 12/03/20 documented as of this encounter
--- OUTSIDE RECORDS SUMMARY | 2025-01-29 08:19 | XMS_ITS | Encounter Summary ---
Author Organization [facility] Address [address] [place] [address] Care Team Providers Care Sole Leather Cutting Machine Operator Name Role Phone Zhao Harris MD Primary Care Provider [phone] Encounter Details Date Type Department Care Team [...] drink first t manav in the morning (EYE-SPOOL MAKER) to steady your nerves or to [...] Upcoming Encounters Date Type Department Care Team ([facility] Contact Info) Description 02/02/2025 11:00 AM EDT Appointment PAV A Interventional Radiology [address] [place] [address] 02/10/2025 8:30 AM EDT Clinical Support P[facility] CC Hematology/BMT and Cellular Therapy Program [address] [place] [address] [place] [address] 02/10/2025 9:00 AM EDT Office Visit P[facility] CC Hematology/BMT and Cellular Therapy Program [address] [place] [phone] Elaina Boss, PA 800 [facility] [address] [place] [address] 02/10/2025 10:30 AM EDT Appointment [facility] 1 [address] [place] [address] 02/11/2025 2:00 PM EDT Appointment [facility] 1 [address] [place] [address] 02/12/2025 2:00 PM EDT Appointment [facility] 1 [address] [place] [address] 02/13/2025 2:00 PM EDT Appointment [facility] 1 [address] [place] [address] 02/14/2025 2:00 PM EDT Appointment [facility]fusion [facility] 1 4 [place] [address] 03/10/2025 8:30 AM EDT Clinical Support P[facility] CC Hematology/BMT and Cellular Therapy Program [address] [place] [address] [place] [address] 03/10/2025 9:00 AM EDT Office Visit P[facility] CC Hematology/BMT and Cellular Therapy Program [address] [place] [address] [place] [phone] Isaura Wynn, HIP HOP DANCE INSTRUCTOR 800 [facility] [address] [place] [address] 03/10/2025 11:20 AM EDT Office Visit Pav CC Head, Neck & Respiratory 800 [facility], 2nd [place] [address] Elsa Razo, HIP HOP DANCE INSTRUCTOR 800 [place] [address] documented as of this encounter Visit Diagnoses [...] documented as of this encounter Care Teams Sole Leather Cutting Machine Operator Relationship Specialty Start Date End Date Zhao Harris MD 1210 [facility] [address] [place] [address] PCP - General 12/03/20 documented as of this encounter
--- OUTSIDE RECORDS SUMMARY | 2025-01-29 08:19 | XMS_ITS | Encounter Summary ---
Author Organization [facility] Address [address] [place] [address] Care Team Providers Care Tester Armature Or Fields Name Role Phone Zhao Harris MD Primary Care Provider [phone] Encounter Details Date Type Department Care Team ([facility] st Contact Info) Description 12/09/2024 Telephone P[facility] CC Hematology/BMT and Cellular Therapy Program [address] [place] [address] [place] [address] Essie Ricks RN [facility] Social History Tobacco Use [...] first t manav in the morning (EYE-PUBLIC RELATIONS CONSULTANT) to steady your nerves or to [...] Appointment PAV A Interventional Radiology [address] [place] [address] 02/10/2025 8:30 AM EDT Clinical Support P[facility] CC Hematology/BMT and Cellular Therapy Program [address] [address] 02/10/2025 9:00 AM EDT Office Visit PAV Hematology/BMT and Cellular Therapy Program [address] [place] [address] Elaina Boss, ARAM 800 [facility] [address] [place] [address] 02/10/2025 10:30 AM EDT Appointment [facility]fusion [facility] 1 [address] [place] [address] 02/11/2025 2:00 PM EDT Appointment [facility]fusion [facility] 1 [address] [place] [address] 02/12/2025 2:00 PM EDT Appointment [facility]fusion [facility] 1 [address] [place] [address] 02/13/2025 2:00 PM EDT Appointment [facility]fusion [facility] 1 [address] [place] [address] 02/14/2025 2:00 PM EDT Appointment [facility]fusion [facility] 1 [address] [place] [address] 03/10/2025 8:30 AM EDT Clinical Support PAV Hematology/BMT and Cellular Therapy Program 750 [facility], [address] [place] [address] 03/10/2025 9:00 AM EDT Office Visit PAV CC Hematology/BMT and Cellular Therapy Program [address] [address] Isaura Wynn, SUPERINTENDENT COLLIERY 800 [facility] [address] [place] [address] 03/10/2025 11:20 AM EDT Office Visit Pav CC Head, Neck & Respiratory 800 [facility], 2nd [place] [address] Elsa Razo, SUPERINTENDENT COLLIERY 800 [place] [phone] documented as of this encounter Visit Diagnoses [...] documented as of this encounter Care Teams Tester Armature Or Fields Relationship Specialty Start Date End Date Zhao Harris MD 1210 [facility] [address] [place] [address] PCP - General 12/03/20 documented as of this encounter
--- OUTSIDE RECORDS SUMMARY | 2025-01-29 08:19 | XMS_ITS | Encounter Summary ---
Author Organization [facility] Address [address] [place] [address] Care Team Providers Care Dye Tank Tender Name Role Phone Zhao Harris MD Primary Care Provider [phone] Encounter Details Date Type Department Care Team [...] drink first t manav in the morning (EYE-MARBLE INSTALLER) to steady your nerves or to [...] Appointment PAV A Interventional Radiology [address] [place] [address] 02/10/2025 8:30 AM EDT Clinical Support P[facility] CC Hematology/BMT and Cellular Therapy Program [address] [place] [address] [place] [address] 02/10/2025 9:00 AM EDT Office Visit P[facility] CC Hematology/BMT and Cellular Therapy Program [address] [place] [phone] Elaina Boss, PA 800 [facility] [address] [place] [address] 02/10/2025 10:30 AM EDT Appointment [facility] 1 [address] [place] [address] 02/11/2025 2:00 PM EDT Appointment [facility] 1 [address] [place] [address] 02/12/2025 2:00 PM EDT Appointment [facility] 1 [address] [place] [address] 02/13/2025 2:00 PM EDT Appointment [facility] 1 [address] [place] [address] 02/14/2025 2:00 PM EDT Appointment [facility] 1 4 [place] [address] 03/10/2025 8:30 AM EDT Clinical Support P[facility] CC Hematology/BMT and Cellular Therapy Program [address] [place] [address] [place] [address] 03/10/2025 9:00 AM EDT Office Visit P[facility] CC Hematology/BMT and Cellular Therapy Program [address] [place] [address] [place] [address] Isaura Wynn, SUSTAINABILITY MANAGER 800 [facility] [address] [place] [address] 03/10/2025 11:20 AM EDT Office Visit Pav CC Head, Neck & Respiratory 800 [facility], 2nd [place] [address] Elsa Razo, SUSTAINABILITY MANAGER 800 [place] [address] documented as of this encounter Visit Diagnoses [...] documented as of this encounter Care Teams Dye Tank Tender Relationship Specialty Start Date End Date Zhao Harris MD 1210 [facility] [address] [place] [id number] PCP - General 12/03/20 documented as of this encounter
--- OUTSIDE RECORDS SUMMARY | 2025-01-29 08:19 | XMS_ITS | Encounter Summary ---
Author Organization [facility] Address [address] [place] [address] Care Team Providers Care Hospice Bereavement Coordinator Name Role Phone Zhao Harris MD Primary Care Provider [phone] Encounter Details Date Type Department Care Team [...] first t manav in the morning (EYE-IRON ERECTOR) to steady your nerves or to get [...] Encounters Date Type Department Care Team ([facility] Contact Info) Description 02/02/2025 11:00 AM EDT Appointment PAV A Interventional Radiology [address] [place] [address] 02/10/2025 8:30 AM EDT Clinical Support P[facility] CC Hematology/BMT and Cellular Therapy Program [address] [place] [address] [place] [address] 02/10/2025 9:00 AM EDT Office Visit P[facility] CC Hematology/BMT and Cellular Therapy Program [address] [place] [phone] Elaina Boss, PA 800 [facility] [address] [place] [address] 02/10/2025 10:30 AM EDT Appointment [facility] 1 [address] [place] [address] 02/11/2025 2:00 PM EDT Appointment [facility] 1 [address] [place] [address] 02/12/2025 2:00 PM EDT Appointment [facility] 1 [address] [place] [address] 02/13/2025 2:00 PM EDT Appointment [facility] 1 [address] [place] [address] 02/14/2025 2:00 PM EDT Appointment [facility] 1 4 [place] [address] 03/10/2025 8:30 AM EDT Clinical Support P[facility] CC Hematology/BMT and Cellular Therapy Program [address] [place] [address] [place] [address] 03/10/2025 9:00 AM EDT Office Visit [facility] CC Hematology/BMT and Cellular Therapy Program [address] [place] [address] [place] [phone] Isaura Wynn, VP FOUNDATION 800 [facility] [address] [place] [address] 03/10/2025 11:20 AM EDT Office Visit Pav CC Head, Neck & Respiratory 800 [facility], 2nd [place] [address] Elsa Razo, VP [employer] 800 [place] [address] documented as of this encounter Visit Diagnoses [...] documented as of this encounter Care Teams Hospice Bereavement Coordinator Relationship Specialty Start Date End Date Zhao Harris MD 1210 [facility] [address] [place] [id number] PCP - General 12/03/20 documented as of this encounter
--- OUTSIDE RECORDS SUMMARY | 2025-01-29 08:19 | XMS_ITS | Encounter Summary ---
Author Organization [facility] Address [address] [place] [address] Care Team Providers Care Stained Glass Painter Name Role Phone Zhao Harris MD Primary Care Provider [phone] Encounter Details Date Type Department Care Team ([facility] st Contact Info) Description 12/23/2024 Orders Only PAV CC Hematology/BMT and Cellular Therapy Program [address] [place] [address] [place] [address] Adam Conway RN [facility] [...] drink first t manav in the morning (EYE-SHOW HOST) to steady your nerves or to get [...] Appointment PAV A Interventional Radiology [address] [place] [address] 02/10/2025 8:30 AM EDT Clinical Support PAV Hematology/BMT and Cellular Therapy Program [address] [address] 02/10/2025 9:00 AM EDT Office Visit PAV Hematology/BMT and Cellular Therapy Program [address] [address] Elaina Boss, PA 800 [facility] [address] [place] [address] 02/10/2025 10:30 AM EDT Appointment [facility] 1 744 [place] [address] 02/11/2025 2:00 PM EDT Appointment [facility] 1 [address] [place] [address] 02/12/2025 2:00 PM EDT Appointment [facility] 1 [address] [place] [address] 02/13/2025 2:00 PM EDT Appointment [facility] 1 [address] [place] [address] 02/14/2025 2:00 PM EDT Appointment [facility] 1 [address] [place] [address] 03/10/2025 8:30 AM EDT Clinical Support P[facility] CC Hematology/BMT and Cellular Therapy Program 750 [facility], [address] [place] [address] [place] [address] 03/10/2025 9:00 AM EDT Office Visit PAV CC Hematology/BMT and Cellular Therapy Program 750 [facility] [place] [phone] Isaura Wynn, TAX DIRECTOR 800 [facility] [address] [place] [address] 03/10/2025 11:20 AM EDT Office Visit Pav CC Head, Neck & Respiratory 800 [facility], 2nd [place] [address] Elsa Razo, TAX DIRECTOR 800 [place] [phone] Scheduled Orders Name Type Priority Associated Diagnoses Orde r Schedule CBC and Differential Lab Routine Myelodysplasia (myelodysplastic syndrome) (CMS/HCC) Expected: 01/06/2025, Expires: 06/26/2026 documented as of this encounter Visit Diagnoses Diagnosis Myelodysplasia (myelodysplastic syndrome) ([facility]/HCC)- Primary Myelodysplastic syndrome, unspecified documented in this encounter Additional Health Concerns Assessment Noted Time PHQ-9 Depression Total Score: 0 09/11/19 25 9:15 AM EST A fall risk assessment has been complete d for the patient 12/22/2024 8:26 AM EDT A Body Mass Index follow-up plan has been documented for the patient 12/16/2024 12:23 PM EDT documented as of this encounter Care Teams Stained Glass Painter Relationship Specialty Start Date End Date Zhao Harris MD 1210 [facility] [address] [place] [address] PCP - General 12/03/20 documented as of this encounter
--- OUTSIDE RECORDS SUMMARY | 2025-01-29 08:19 | XMS_ITS | Encounter Summary ---
Author Organization [facility] Address [address] [place] [address] Care Team Providers Care Field Crop I Farmworker Name Role Phone Zhao Harris MD Primary Care Provider [phone] Encounter Details Date Type Department Care Team [...] first t manav in the morning (EYE-RETAIL SALES DIRECTOR) to steady your nerves or [...] Upcoming Encounters Date Type Department Care Team ([facility] Contact Info) Description 02/02/2025 11:00 AM EDT Appointment PAV A Interventional Radiology [address] [place] [address] 02/10/2025 8:30 AM EDT Clinical Support PAV CC Hematology/BMT and Cellular Therapy Program [address] [place] [address] [place] [address] 02/10/2025 9:00 AM EDT Office Visit PAV CC Hematology/BMT and Cellular Therapy Program [address] [place] [address] Elaina Boss, PA 800 [facility] [address] [place] [address] 02/10/2025 10:30 AM EDT Appointment [facility] Infusion [facility] 1 744 [place] [address] 02/11/2025 2:00 PM EDT Appointment [facility] 1 744 [place] [address] 02/12/2025 2:00 PM EDT Appointment [facility] 1 744 [place] [address] 02/13/2025 2:00 PM EDT Appointment [facility] 1 7[address] [place] [address] 02/14/2025 2:00 PM EDT Appointment [facility] 1 4 [place] [address] 03/10/2025 8:30 AM EDT Clinical Support P[facility] CC Hematology/BMT and Cellular Therapy Program [address] [place] [address] [place] [address] 03/10/2025 9:00 AM EDT Office Visit PAV CC Hematology/BMT and Cellular Therapy Program [address] [place] [address] [place] [phone] Isaura Wynn, HOUSING INSPECTORS 800 [facility] [address] [place] [address] 03/10/2025 11:20 AM EDT Office Visit Pav CC Head, Neck & Respiratory 800 [facility], 2nd [place] [address] Elsa Razo, HOUSING INSPECTORS 800 [place] [address] documented as of this encounter Visit Diagnoses [...] as of this encounter Care Teams Field Crop I Farmworker Relationship Specialty Start Date End Date Zhao Harris MD 1210 [facility] [address] [place] [phone] PCP - General 12/03/20 documented as of this encounter
--- OUTSIDE RECORDS SUMMARY | 2025-01-29 08:19 | XMS_ITS | Encounter Summary ---
Author Organization [facility] Address [address] [place] [address] Care Team Providers Care Dielectric Machine Operator Name Role Phone Zhao Harris MD Primary Care Provider [phone] Encounter Details Date Type Department Care Team [...] drink first t manav in the morning (EYE-CAUSTIC PURIFICATION OPERATOR) to steady your nerves or to [...] Appointment PAV A Interventional Radiology [address] [place] [address] 02/10/2025 8:30 AM EDT Clinical Support P[facility] CC Hematology/BMT and Cellular Therapy Program [address] [place] [address] [place] [address] 02/10/2025 9:00 AM EDT Office Visit P[facility] CC Hematology/BMT and Cellular Therapy Program [address] [place] [phone] Elaina Boss, PA 800 [facility] [address] [place] [address] 02/10/2025 10:30 AM EDT Appointment [facility] 1 [address]44 [place] [address] 02/11/2025 2:00 PM EDT Appointment [facility] 1 [address] [place] [address] 02/12/2025 2:00 PM EDT Appointment [facility] 1 [address] [place] [address] 02/13/2025 2:00 PM EDT Appointment [facility] 1 [address] [place] [address] 02/14/2025 2:00 PM EDT Appointment [facility] 1 4 [place] [address] 03/10/2025 8:30 AM EDT Clinical Support P[facility] CC Hematology/BMT and Cellular Therapy Program [address] [place] [address] [place] [address] 03/10/2025 9:00 AM EDT Office Visit P[facility] CC Hematology/BMT and Cellular Therapy Program [address] [place] [address] [place] [address] Isaura Wynn, HEEL STIFFENER 800 [facility] [address] [place] [address] 03/10/2025 11:20 AM EDT Office Visit Pav CC Head, Neck & Respiratory 800 [facility], 2nd [place] [address] Elsa Razo, HEEL STIFFENER 800 [place] [address] documented as of this encounter Visit Diagnoses [...] documented as of this encounter Care Teams Dielectric Machine Operator Relationship Specialty Start Date End Date Zhao Harris MD 1210 [facility] [address] [place] [phone] PCP - General 12/03/20 documented as of this encounter
--- OUTSIDE RECORDS SUMMARY | 2025-01-29 08:20 | XMS_ITS | Encounter Summary ---
Author Organization [facility] Address [address] [place] [address] Care Team Providers Care Senior Support Engineer Name Role Phone Zhao Harris MD Primary Care Provider [phone] Encounter Details Date Type Department Care Team [...] first t manav in the morning (EYE-CAREER AND TRANSITION TEACHER) to steady your nerves or to [...] Appointment PAV A Interventional Radiology [address] [place] [address] 02/10/2025 8:30 AM EDT Clinical Support P[facility] CC Hematology/BMT and Cellular Therapy Program [address] [place] [address] [place] [address] 02/10/2025 9:00 AM EDT Office Visit P[facility] CC Hematology/BMT and Cellular Therapy Program [address] [place] [phone] Elaina Boss, PA 800 [facility] [address] [place] [address] 02/10/2025 10:30 AM EDT Appointment [facility] 1 [address] [place] [address] 02/11/2025 2:00 PM EDT Appointment [facility] 1 [address] [place] [address] 02/12/2025 2:00 PM EDT Appointment [facility] 1 [address] [place] [address] 02/13/2025 2:00 PM EDT Appointment [facility] 1 [address] [place] [address] 02/14/2025 2:00 PM EDT Appointment [facility] 1 4 [place] [address] 03/10/2025 8:30 AM EDT Clinical Support P[facility] CC Hematology/BMT and Cellular Therapy Program [address] [place] [address] [place] [address] 03/10/2025 9:00 AM EDT Office Visit P[facility] CC Hematology/BMT and Cellular Therapy Program [address] [place] [address] [place] [address] Isaura Wynn, BOX TURNER 800 [facility] [address] [place] [address] 03/10/2025 11:20 AM EDT Office Visit Pav CC Head, Neck & Respiratory 800 [facility], 2nd [place] [address] Elsa Razo, BOX TURNER 800 [place] [address] documented as of this encounter Visit Diagnoses [...] as of this encounter Care Teams Senior Support Engineer Relationship Specialty Start Date End Date Zhao Harris MD 1210 [facility] [address] [place] [phone] PCP - General 12/03/20 documented as of this encounter
--- OUTSIDE RECORDS SUMMARY | 2025-01-29 08:20 | XMS_ITS | Encounter Summary ---
Author Organization [facility] Address [address] [place] [address] Care Team Providers Care Line Mechanic Name Role Phone Zhao Harris MD Primary Care Provider [phone] Encounter Details Date Type Department Care Team ([facility] st Contact Info) Description 01/12/2025 Telephone PAV CC Hematology/BMT and Cellular Therapy Program [address] [address] Virgen Vargas MD 800 [facility] 1st [place] [address] Social History Tobacco Use Types Packs/Day Years [...] first t manav in the morning (EYE-STERILE PRODUCTS PROCESSOR) to steady your nerves or to [...] Wanting tospeak to Dr. Vargas Callback number: [phone] Personal number documented in this encounter Plan of Treatment Upcoming Encounters Date Type Department Care Team ([facility] st Contact Info) Description 02/02/2025 11:00 AM EDT Appointment PAV A Interventional Radiology [address] [place] [address] 02/10/2025 8:30 AM EDT Clinical Support PAV CC Hematology/BMT and Cellular Therapy Program [address] [place] [address] 02/10/2025 9:00 AM EDT Office Visit PAV Hematology/BMT and Cellular Therapy Program [address] [place] [address] Elaina Boss PA 800 [facility] [address] [place] [address] 02/10/2025 10:30 AM EDT Appointment [facility]fusion [facility] 1 7[address] [place] [address] 02/11/2025 2:00 PM EDT Appointment [facility]fusion [facility] 1 [address] [place] [address] 02/12/2025 2:00 PM EDT Appointment [facility] 1 [address] [place] [address] 02/13/2025 2:00 PM EDT Appointment [facility]fusion [facility] 1 [address] [place] [address] 02/14/2025 2:00 PM EDT Appointment [facility] 1 [address] [place] [address] 03/10/2025 8:30 AM EDT Clinical Support P[facility] CC Hematology/BMT and Cellular Therapy Program [address] [address] 03/10/2025 9:00 AM EDT Office Visit PAV CC Hematology/BMT and Cellular Therapy Program [address] [address] Isaura Wynn, PRETZEL TWISTER 800 [facility] [address] [place] [phone] 03/10/2025 11:20 AM EDT Office Visit Pav CC Head, Neck & Respiratory 800 [facility], 2nd [place] [address] Elsa Razo, PRETZEL TWISTER 800 [place] [phone] documented as of this encounter Visit Diagnoses [...] documented as of this encounter Care Teams Line Mechanic Relationship Specialty Start Date End Date Zhao Harris MD 1210 [place] [address] PCP - General 12/03/20 documented as of this encounter
--- OUTSIDE RECORDS SUMMARY | 2025-01-29 08:20 | XMS_ITS | Encounter Summary ---
Author Organization [facility] Address [address] [place] [address] Care Team Providers Care Billet Header Name Role Phone Zhao Harris MD Primary Care Provider [phone] Reason for Visit * Reason Comments Med Refill Encounter Details Date Type Department Care Team (Late st Contact Info) Description 06/19/2023 Refill [facility] 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, unspecified vessel or [...] Appointment PAV A Interventional Radiology [address] [place] [address] 02/10/2025 8:30 AM EDT Clinical Support PAV CC Hematology/BMT and Cellular Therapy Program [address] [place] [address] 02/10/2025 9:00 AM EDT Office Visit PAV Hematology/BMT and Cellular Therapy Program [address] [place] [address] Elaina Boss, PA 800 [facility] [address] [place] [address] 02/10/2025 10:30 AM EDT Appointment [facility] Infusion [facility] 1 744 [place] [address] 02/11/2025 2:00 PM EDT Appointment [facility]fusion [facility] 1 [address] [place] [address] 02/12/2025 2:00 PM EDT Appointment [facility]fusion [facility] 1 [address] [place] [address] 02/13/2025 2:00 PM EDT Appointment [facility] 1 [address] [place] [address] 02/14/2025 2:00 PM EDT Appointment [facility] 1 [address] [place] [address] 03/10/2025 8:30 AM EDT Clinical Support PAV Hematology/BMT and Cellular Therapy Program [address] [place] [address] 03/10/2025 9:00 AM EDT Office Visit PAV Hematology/BMT and Cellular Therapy Program [address] [place] [address] Isaura Wynn, ESTRELLA 800 [facility] [address] [place] [phone] 03/10/2025 11:20 AM EDT Office Visit Pav Head, Neck & Respiratory 800 [facility], 2nd [place] [address] Elsa Razo, EXTRACTOR PULLER [address] [place] [address] documented as of this encounter Visit Diagnoses Diagnosis Hypertension, unspecified type 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
--- OUTSIDE RECORDS SUMMARY | 2025-01-29 08:20 | XMS_ITS | Encounter Summary ---
Author Organization [facility] Address [address] [place] [address] Care Team Providers Care Import/Export Agent Name Role Phone Zhao Harris MD Primary Care Provider [phone] Encounter Details Date Type Department Care Team ([facility] st Contact Info) Description 01/20/2025 Telephone PAV CC Hematology/BMT and Cellular Therapy Program [address] [address] Elaina Boss, ARAM 800 [facility] [address]st [place] [address] Social History Tobacco Use Types Packs/Day Years [...] drink first t manav in the morning (EYE-VOCATIONAL HORTICULTURE INSTRUCTOR) to steady your nerves or to [...] Appointment PAV A Interventional Radiology [address] [place] [address] 02/10/2025 8:30 AM EDT Clinical Support P[facility] CC Hematology/BMT and Cellular Therapy Program [address] [address] 02/10/2025 9:00 AM EDT Office Visit PAV Hematology/BMT and Cellular Therapy Program [address] [address] Elaina Boss, ARAM 800 [facility] [address] [place] [address] 02/10/2025 10:30 AM EDT Appointment [facility] Infusion [facility] 1 744 [place] [address] 02/11/2025 2:00 PM EDT Appointment [facility]fusion [facility] 1 [address] [place] [address] 02/12/2025 2:00 PM EDT Appointment [facility] Infusion [facility] 1 [address] [place] [address] 02/13/2025 2:00 PM EDT Appointment [facility]fusion [facility] 1 [address] [place] [address] 02/14/2025 2:00 PM EDT Appointment [facility]fusion [facility] 1 [address] [place] [address] 03/10/2025 8:30 AM EDT Clinical Support P[facility] CC Hematology/BMT and Cellular Therapy Program [address] [address] 03/10/2025 9:00 AM EDT Office Visit PAV CC Hematology/BMT and Cellular Therapy Program [address] [phone] Isaura Wynn, IMAGING MANAGER 800 [facility] [address] [place] [phone] 03/10/2025 11:20 AM EDT Office Visit Pav CC Head, Neck & Respiratory 800 [facility], 2nd [place] [phone] Elsa Razo, IMAGING MANAGER 800 [place] [phone] documented as of this encounter Visit Diagnoses [...] documented as of this encounter Care Teams Import/Export Agent Relationship Specialty Start Date End Date Zhao Harris MD [address] [phone] PCP - General 12/03/20 documented as of this encounter
--- OUTSIDE RECORDS SUMMARY | 2025-01-29 08:20 | XMS_ITS | Encounter Summary ---
Author Organization [facility] Address [address] [place] [address] Care Team Providers Care Fiber Product Cutting Machine Operator Name Role Phone Zhao Harrsi MD Primary Care Provider [phone] Encounter Details Date Type Department Care Team [...] drink first t manav in the morning (EYE-ENTRY CLERK) to steady your nerves or to [...] Appointment PAV A Interventional Radiology [address] [place] [address] 02/10/2025 8:30 AM EDT Clinical Support P[facility] CC Hematology/BMT and Cellular Therapy Program [address] [place] [address] [place] [address] 02/10/2025 9:00 AM EDT Office Visit PAV CC Hematology/BMT and Cellular Therapy Program [address] [place] [address] Elaina Boss, PA 800 [facility] [address] [place] [address] 02/10/2025 10:30 AM EDT Appointment [facility] 1 744 [place] [address] 02/11/2025 2:00 PM EDT Appointment [facility]fusion [facility] 1 [address] [place] [address] 02/12/2025 2:00 PM EDT Appointment [facility]fusion [facility] 1 [address] [place] [address] 02/13/2025 2:00 PM EDT Appointment [facility]fusion [facility] 1 [address] [place] [address] 02/14/2025 2:00 PM EDT Appointment [facility] Infusion [facility] 1 4 [place] [address] 03/10/2025 8:30 AM EDT Clinical Support P[facility] CC Hematology/BMT and Cellular Therapy Program [address] [place] [address] [place] [address] 03/10/2025 9:00 AM EDT Office Visit P[facility] CC Hematology/BMT and Cellular Therapy Program [address] [place] [address] [address] [phone] Isaura Wynn, VERIFICATION MANAGER 800 [facility] [address] [place] [address] 03/10/2025 11:20 AM EDT Office Visit Pav CC Head, Neck & Respiratory 800 [facility], 2nd [place] [address] Elsa Razo, VERIFICATION MANAGER 800 [place] [address] documented as of this encounter Visit Diagnoses [...] documented as of this encounter Care Teams Fiber Product Cutting Machine Operator Relationship Specialty Start Date End Date Zhao Harris MD 1210 [facility] [address] [place] [phone] PCP - General 12/03/20 documented as of this encounter
--- OUTSIDE RECORDS SUMMARY | 2025-01-29 08:20 | XMS_ITS | Encounter Summary ---
Author Organization [facility] Address [address] [place] [address] Care Team Providers Care Panelboard Tank Pumper Name Role Phone Zhao Harris MD Primary Care Provider [phone] Encounter Details Date Type Department Care Team ([facility] st Contact Info) Description 12/12/2024 Orders Only PAV CC Hematology/BMT and Cellular Therapy Program [address] [place] [address] [place] [address] Gricel Gonzalez RN [facility] HEMATOLOGY PRO[facility] CLINIC Social History Tobacco Use [...] drink first t manav in the morning (EYE-SHOVEL MECHANIC) to steady your nerves or to [...] Appointment PAV A Interventional Radiology [address] [place] [address] 02/10/2025 8:30 AM EDT Clinical Support PAV Hematology/BMT and Cellular Therapy Program [address] [address] 02/10/2025 9:00 AM EDT Office Visit PAV Hematology/BMT and Cellular Therapy Program [address] [address] Elaina Boss, ARAM 800 [facility] [address] [place] [address] 02/10/2025 10:30 AM EDT Appointment [facility] 1 [address] [place] [address] 02/11/2025 2:00 PM EDT Appointment [facility]fusion [facility] 1 [address] [place] [address] 02/12/2025 2:00 PM EDT Appointment [facility] 1 [address] [place] [address] 02/13/2025 2:00 PM EDT Appointment [facility] 1 [address] [place] [address] 02/14/2025 2:00 PM EDT Appointment [facility]fusion [facility] 1 [address] [place] [address] 03/10/2025 8:30 AM EDT Clinical Support PAV Hematology/BMT and Cellular Therapy Program 750 [facility] [phone] 03/10/2025 9:00 AM EDT Office Visit PAV CC Hematology/BMT and Cellular Therapy Program 750 [facility], [address] [place] [address] Isaura Wynn, FURNITURE FINISHER APPRENTICE 800 [facility] [address]st [place] [address] 03/10/2025 11:20 AM EDT Office Visit Pav CC Head, Neck & Respiratory 800 [facility], 2nd [place] [address] Elsa Razo, FURNITURE FINISHER APPRENTICE 800 [place] [address] documented as of this encounter Visit Diagnoses [...] documented as of this encounter Care Teams Panelboard Tank Pumper Relationship Specialty Start Date End Date Zhao Harris MD [address] [place] [address] PCP - General 12/03/20 documented as of this encounter
--- OUTSIDE RECORDS SUMMARY | 2025-01-29 08:20 | XMS_ITS | Encounter Summary ---
Author Organization [facility] Address [address] [place] [address] Care Team Providers Care Route Specialist Name Role Phone Zhao Harris MD Primary Care Provider [phone] Encounter Details Date Type Department Care Team [...] first t manav in the morning (EYE-MACHINE SET UP) to steady your nerves or to get [...] Upcoming Encounters Date Type Department Care Team ([facility] Contact Info) Description 02/02/2025 11:00 AM EDT Appointment PAV A Interventional Radiology [address] [place] [address] 02/10/2025 8:30 AM EDT Clinical Support PAV CC Hematology/BMT and Cellular Therapy Program [address] [place] [address] [place] [address] 02/10/2025 9:00 AM EDT Office Visit PAV CC Hematology/BMT and Cellular Therapy Program [address] [place] [address] Elaina Boss, PA 800 [facility] [address] [place] [address] 02/10/2025 10:30 AM EDT Appointment [facility] Infusion [facility] 1 744 [place] [address] 02/11/2025 2:00 PM EDT Appointment [facility]fusion [facility] 1 [address] [place] [address] 02/12/2025 2:00 PM EDT Appointment [facility]fusion [facility] 1 [address] [place] [address] 02/13/2025 2:00 PM EDT Appointment [facility] 1 [address] [place] [address] 02/14/2025 2:00 PM EDT Appointment [facility]fusion [facility] 1 4 [place] [address] 03/10/2025 8:30 AM EDT Clinical Support PAV CC Hematology/BMT and Cellular Therapy Program [address] [place] [address] [place] [address] 03/10/2025 9:00 AM EDT Office Visit PAV CC Hematology/BMT and Cellular Therapy Program [address] [place] [address] [place] [phone] Iasura Wynn, TELEVISION REPAIR TEACHER 800 [facility] [address] [place] [address] 03/10/2025 11:20 AM EDT Office Visit Pav CC Head, Neck & Respiratory 800 [facility], 2nd [place] [address] Elsa Razo, TELEVISION REPAIR TEACHER 800 [place] [address] documented as of this encounter Visit Diagnoses [...] as of this encounter Care Teams Route Specialist Relationship Specialty Start Date End Date Zhao Harris MD 1210 [facility] [address] [place] [phone] PCP - General 12/03/20 documented as of this encounter
--- OUTSIDE RECORDS SUMMARY | 2025-01-29 08:20 | XMS_ITS | Encounter Summary ---
Author Organization [facility] ([place], [place], [place], [place]) Address [address] [place] [address] Care Team Providers Care Brickmason Name Role Phone Unavailable Primary Care Provider Unavailabl e Encounter Details Date Type Department Care Team (Late st Contact Info) Description 07/10/2019 Transcribed Document [facility] [address] [place] [address] ProviderBrigida MD [address] [place] [address] Social History Tobacco Use Types [...] - Brigida ProviderMD - 07/10/2019 7:57 AM [facility]PER ETCHER [facility] OR PACU Summary Primary Physician: SURY SHARMA MD-ORT Finalized Date/Time: 07/10/19 09:18:01 Pt. Name: HUGO AGUILAR JR, D.O.B./Sex: 1955 Male Med Rec #: [id number] Physician: SURY SHARMA MD-ORT Financial #: [id number] Pt. Type: O Room/Bed: Admit/Disch: 07/10/19 05:55:00 - Institution: [facility] PACU Case Times Entry 1 In PACU I 07/10/19 08:26:00 Ready for PACU 07/10/19 09:00:00 Discharge Discharge from PACU 07/10/19 09:00:00 I Last Modified By: Mariah Guerra RN 07/10/19 09:17:59 [facility] OR PACU Case Times Audit 07/10/19 09:17:59 Dice Table Person: TERESA Modifier: CARRIEC 1 <*> Ready for PACU Discharge 07/10/19 08:56:00 1 <*> Discharge from PACU I 07/10/19 08:56:00 07/10/19 08:49:40 Dice Table Person: TERESA Modifier: CARRIEC <+> 1 Discharge from PACU I Finalized By: Mariah Guerra RN Document Signatures Signed By: Mariah Guerra RN 07/10/19 09:18 Electronically signed by [facility] Conversion Waiter/Waitress Club Cerner at 11/06/2022 6:04 PM CDT documented in this encounter Plan of Treatment Not on file documented as of this encounter Visit Diagnoses Not on filedocumented in this encounter
--- OUTSIDE RECORDS SUMMARY | 2025-01-29 08:20 | XMS_ITS | Encounter Summary ---
Author Organization [facility] Address [address] 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) Virgen Vargas MD [address] [address] Phone: tel:[phone] fax:[phone] [facility] Multidisciplinary Oncology Clinic [address] [place] [address] Phone: tel: fax: Referral ID Status Reason Start Date Expiration Date V isits Requested Visits Authorized [id number] Closed Specialty Services Required 12/11/2024 06/12/2026 1 1 Scheduling Instructions AML, evaluation for clinical trials * Consultation (Routine) - Closed Specialty Diagnoses / Procedures Referred By Justice mcgee Referred To Contact Medical Oncology Diagnoses 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 Contact Info) Description 12/11/2024 Orders Only PAV CC Hematology/BMT and Cellular Therapy Program 750 [facility], [address] [place] [address] Shahla Mejia RN [facility] AMB SERV ADMIN Acute myeloid leukemia [...] drink first t manav in the morning ([employer]) to steady your nerves or to get [...] Appointment PAV A Interventional Radiology [address] [place] [address] 02/10/2025 8:30 AM EDT Clinical Support PAV Hematology/BMT and Cellular Therapy Program [address] [address] 02/10/2025 9:00 AM EDT Office Visit PAV Hematology/BMT and Cellular Therapy Program [address] [address] Elaina Boss, PA 800 [facility] [address] [place] [address] 02/10/2025 10:30 AM EDT Appointment [facility] Infusion [facility] 1 [address] [place] [address] 02/11/2025 2:00 PM EDT Appointment [facility] 1 [address] [place] [address] 02/12/2025 2:00 PM EDT Appointment [facility] 1 [address] [place] [address] 02/13/2025 2:00 PM EDT Appointment [facility]fusion [facility] 1 [address] [place] [address] 02/14/2025 2:00 PM EDT Appointment [facility] Infusion [facility] 1 [address] [place] [address] 03/10/2025 8:30 AM EDT Clinical Support PAV Hematology/BMT and Cellular Therapy Program [address] [address] 03/10/2025 9:00 AM EDT Office Visit PAV Hematology/BMT and Cellular Therapy Program [address] [address] Isaura Wynn, ARTISTIC ASSOCIATE 800 [facility] [address] [place] [phone] 03/10/2025 11:20 AM EDT Office Visit Pav CC Head, Neck & Respiratory 800 [facility], 2nd [place] [address] Elsa Razo, ARTISTIC ASSOCIATE [address] [place] [address] Scheduled Referrals Name Type Priority Associated Diagnoses [...] as of this encounter Care Teams Shop Foreman Relationship Specialty Start Date End Date Zhao Harris MD [address] [place] [id number] PCP - General 12/03/20 documented as of this encounter
--- OUTSIDE RECORDS SUMMARY | 2025-01-29 08:20 | XMS_ITS | Encounter Summary ---
Author Organization [employer] ([place], [place], [place], [place]) Address [address] [place] [address] Care Team Providers Care Education Program Associate Name Role Phone Unavailable Primary Care Provider Unavailabl e Encounter Details Date Type Department Care Team (Late st Contact Info) Description 07/10/2019 Transcribed Document [facility] Family Medicine [address] [place] [address] ProviderBrigida MD [address] [place] [address] Social History Tobacco Use Types [...] Brigida Vega MD - 07/10/2019 9:24 AM [place] [address] HUGO AGUILAR JR :1955 Visit Time:07/10/2019 What to do next Your Diagnosis Chondromalacia, right knee, Chondromalacia, right knee Instructions From Your Care Team Weight bearing as tolerated, use cane or crutches if needed. Keep dressing clean and dry for at least 2 days. Resume all home medications. Usual diet as tolerated. Rocklin 10/325mg 1 tablet every 6 hours as needed for pain- next dose due @ 3:30pm today 07/10/19. Follow-Up Appointments Follow Up with SURY SHARMA MD-ORT When 07/21/2019 02:00 PM EST Where: [address] [facility] 2ND [place] [address]- Medications What How Much When Instructions Next [...] activities are safe for you. ??? Take nkxb-ejc-pqhypyp and prescription medicines only as told by [...] 12/28/2017 Document Revised: 03/07/2018 Document Reviewed: 12/28/2017 [employer] Interactive Patient Education ?? 2019 [employer] General Anesthesia, Adult, Care After This [...] activities are safe for you. ??? Take sbwn-bfy-vohjale and prescription medicines only as told by [...] 10/15/2001 Document Revised: 02/22/2018 Document Reviewed: 02/22/2018 [employer] Interactive Patient Education ?? 2019 [employer] Knee Arthroscopy, Care After Refer to [...] activities are safe for you. ??? Perform otimh-tu-vlhvrj exercises only as directed by your health [...] 01/26/2006 Document Revised: 12/08/2016 Document Reviewed: 07/05/2015 [employer] Interactive Patient Education ?? 2018 [employer]. acetaminophen and hydrocodone (a SEET a MIN oh fen and laurie droe KOE done) Hycet, Lorcet, Rocklin, Verdrocet, Vicodin, Xodol, Zamicet What is the [...] may report side effects to FDA at 6-553-TGU-1278. What other drugs will affect acetaminophen and [...] affect acetaminophen and hydrocodone, including prescription and kjzl-mzy-cntjqzg medicines, vitamins, and herbal products. Not all [...] to ensure that the information provided by [employer]. ('[employer]') is accurate, up-to-date, and complete, but no guarantee is made to that effect. Drug information contained herein may be time sensitive. [employer] information has been compiled for use by healthcare practitioners and consumers in the [place] and therefore [employer] does not warrant that uses outside of the [place] are appropriate, unless specifically indicated otherwise. [facility] [employer] [facility] drug information does not endorse drugs, diagnose patients or recommend therapy. [facility] [employer] [facility] drug information is an informational resource designed [...] effective or appropriate for any given patient. [facility] does not assume any responsibility for any aspect of healthcare administered with the aid of information [facility] provides. The information contained herein is not intended to cover all possible uses, directions, precautions, warnings, drug interactions, allergic reactions, or adverse effects. If you have questions about the drugs you are taking, check with your doctor, nurse or pharmacist. Copyright 7351-3011 [employer]. Version: 15.02. Revision Date: 05/27/2018. Emergency Awareness [...] Assistance with quitting is available by contacting 9-062-EXOM-NOW. This is a free resource providing counseling, [...] was given the opportunity to ask questions. Patient/X Ray Equipment Servicer Name: Patient/X Ray Equipment Servicer Signature: Relationship to Patient: Clinician/Hospital X Ray Equipment Servicer Signature: Date: documented in this encounter Plan of Treatment Not on file documented as of this encounter Visit Diagnoses Not on filedocumented in this encounter
--- OUTSIDE RECORDS SUMMARY | 2025-01-29 08:20 | XMS_ITS | Encounter Summary ---
Author Organization [facility] Address [address] [place] [address] Care Team Providers Care 2Nd Pressman Name Role Phone Zhao Harris MD Primary Care Provider [phone] Encounter Details Date Type Department Care Team ([facility] st Contact Info) Description 12/16/2024 Orders Only PAV CC Hematology/BMT and Cellular Therapy Program [address] [address] Christina Ramos MD 800 [facility] 1st [place] [address] Myelodysplasia (myelodysplastic syndrome) (CMS/HCC) (Primary Dx) Social [...] drink first t manav in the morning ([employer]) to steady your nerves or to [...] ([facility] st Contact Info) Description 02/02/2025 11:00 AM EDT Appointment PAV A Interventional Radiology [address] [place] [address] 02/10/2025 8:30 AM EDT Clinical Support PAV CC Hematology/BMT and Cellular Therapy Program [address] [address] 02/10/2025 9:00 AM EDT Office Visit PAV Hematology/BMT and Cellular Therapy Program [address] [address] Elaina Boss, PA 800 [facility] [address] [place] [address] 02/10/2025 10:30 AM EDT Appointment [facility] Infusion Clinic 1 [address] [place] [address] 02/11/2025 2:00 PM EDT Appointment [facility] Infusion Clinic 1 [address] [place] [address] 02/12/2025 2:00 PM EDT Appointment [facility] Infusion [facility] 1 [address] [place] [address] 02/13/2025 2:00 PM EDT Appointment [facility] Infusion [facility] 1 [address] [place] [address] 02/14/2025 2:00 PM EDT Appointment [facility] Infusion [facility] 1 [address] [place] [address] 03/10/2025 8:30 AM EDT Clinical Support PAV CC Hematology/BMT and Cellular Therapy Program 750 [facility] [place] [address] 03/10/2025 9:00 AM EDT Office Visit PAV CC Hematology/BMT and Cellular Therapy Program 750 [facility] [place] [address] Isaura Wynn, HEEL CUTTER 800 [facility] [address] [place] [address] 03/10/2025 11:20 AM EDT Office Visit Pav CC Head, Neck & Respiratory 800 [facility], 2nd [place] [address] Elsa Razo, HEEL CUTTER [address] [place] [address] documented as of this encounter Results * (ABNORMAL) Comprehensive metabolic panel (01/06/2025 8:49 AM EDT) Glucose, Plasma 100(H) 74 - 99 mg/dL 01/06/2025 9:34 AM EDT [facility] BUN, Plasma 8 8 - 23 mg/dL 01/06/2025 9:34 AM EDT [facility] Creatinine, Plasma 0.76 0.70 - 1.20 mg/dL 01/06/2025 9:34 AM EDT [facility] BUN/Creatinine Ratio 11 01/06/2025 9:34 AM EDT [facility] Sodium, Plasma 138 136 - 145 mmol/L 01/06/2025 9:34 AM EDT [facility] Potassium, Plasma 4.3 3.6 - 4.9 mmol/L 01/06/2025 9:34 AM EDT [facility] Chloride, Plasma 109(H) 97 - 107 mmol/L 01/06/2025 9:34 AM EDT [facility] CO2, Plasma 21(L) 22 - 29 mmol/L 01/06/2025 9:34 AM EDT [facility] Anion Gap 8 6 - 16 mmol/L 01/06/2025 9:34 AM EDT [facility] Total Calcium, Plasma 8.8(L) 8.9 - 10.2 mg/dL 01/06/2025 9:34 AM EDT [facility] Total Protein 6.6 6.3 - 7.9 g/dL 01/06/2025 9:34 AM EDT [facility] Albumin, Plasma 3.9 3.5 - 5.2 g/dL 01/06/2025 9:34 AM EDT [facility] AST, Plasma 25 10 - 50 U/L 01/06/2025 9:34 AM EDT [facility] ALT, Plasma 28 10 - 50 U/L 01/06/2025 9:34 AM EDT [facility] Alkaline Phosphatase, Plasma 83 40 - 115 U/L 01/06/2025 9:34 AM EDT [facility] Total Bilirubin, Plasma 0.5 0.2 - 1.1 mg/dL 01/06/2025 9:34 AM EDT [facility] eGFRcr 97.3 mL/min/1.7 3m*2 01/06/2025 9:34 AM EDT [facility] Comment:Reported eGFRcr in m L/min/1.73m2 is based the CKD-EPI 2020 equation that does not use a race coefficient. Blood Venous blood specimen / Unknown Venipuncture / Unknown 01/06/2025 8:49 AM EDT 01/06/2025 9:01 AM EDT us Christina Ramos MD LAB BLOOD ORDERABLES Final Resul t [facility] [address] [place] [address] * (ABNORMAL) CBC and differential (01/06/2025 8:49 AM EDT) WBC Count 0.59(LL) 3.70 - 10.30 10*3/uL LAB HEMATOLOGY METHOD 01/06/2025 11:36 AM EDT [facility] RBC Count 2.95(L) 4.60 - 6.10 10*6/uL LAB HEMATOLOGY METHOD 01/06/2025 11:36 AM EDT [facility] HGB 8.8(L) 13.7 - 17.5 g/dL LAB HEMATOLOGY METHOD 01/06/2025 11:36 AM EDT [facility] HCT 25.3(L) 40.0 - 51.0 % LAB HEMATOLOGY METHOD 01/06/2025 11:36 AM EDT [facility] Platelet Count 75(L) 155 - 369 10*3/uL LAB HEMATOLOGY METHOD 01/06/2025 11:36 AM EDT [facility] MCV 86 79 - 98 fL LAB HEMATOLOGY METHOD 01/06/2025 11:36 AM EDT [facility] MCH 29.8 26.0 - 32.0 pg LAB HEMATOLOGY METHOD 01/06/2025 11:36 AM EDT [facility] MCHC 34.8 30.7 - 35.5 g/dL LAB HEMATOLOGY METHOD 01/06/2025 11:36 AM EDT [facility] RDW 14.6(H) 11.5 - 14.5 % LAB HEMATOLOGY METHOD 01/06/2025 11:36 AM EDT [facility] MPV 10.7 8.8 - 12.5 fL LAB HEMATOLOGY METHOD 01/06/2025 11:36 AM EDT [facility] nRBC 3.4(H) <=0.0 per 100 WBCs LAB HEMATOLOGY METHOD 01/06/2025 11:36 AM EDT [facility] Differential Type Automated LAB HEMATOLOGY METHOD 01/06/2025 11:36 AM EDT [facility] Neutrophils % 5 % LAB HEMATOLOGY METHOD 01/06/2025 11:36 AM EDT [facility] Lymphocytes % 88 % LAB HEMATOLOGY METHOD 01/06/2025 11:36 AM EDT [facility] Monocytes % 7 % LAB HEMATOLOGY METHOD 01/06/2025 11:36 AM EDT [facility] Eosinophils % 0 % LAB HEMATOLOGY METHOD 01/06/2025 11:36 AM EDT [facility] Basophils % 0 % LAB HEMATOLOGY METHOD 01/06/2025 11:36 AM EDT [facility] Immature Granulocytes % 0 % LAB HEMATOLOGY METHOD 01/06/2025 11:36 AM EDT [facility] Neutrophils Absolute 0.03(LL) 1.60 - 6.10 10*3/uL LAB HEMATOLOGY METHOD 01/06/2025 11:36 AM EDT [facility] Lymphocytes Absolute 0.52(L) 1.20 - 3.90 10*3/uL LAB HEMATOLOGY METHOD 01/06/2025 11:36 AM EDT [facility] Monocytes Absolute 0.04(L) 0.30 - 0.90 10*3/uL LAB HEMATOLOGY METHOD 01/06/2025 11:36 AM EDT [facility] Eosinophils Absolute 0.00 0.00 - 0.50 10*3/uL LAB HEMATOLOGY METHOD 01/06/2025 11:36 AM EDT [facility] Basophils Absolute 0.00 0.00 - 0.10 10*3/uL LAB HEMATOLOGY METHOD 01/06/2025 11:36 AM EDT [facility] Immature Granulocytes Absolute 0.00 0.00 - 0.06 10*3/uL LAB HEMATOLOGY METHOD 01/06/2025 11:36 AM EDT [facility] Blood Venous blood specimen / Unknown Venipuncture / Unknown 01/06/2025 8:49 AM EDT 01/06/2025 9:01 AM EDT [facility] - 01/06/2025 11:36 AM EDT Therapeutic decision making should be based on absolute values, rather than percentages. us Christina Ramos MD LAB BLOOD ORDERABLES Final Resul t [facility] [address] [place] [address] * (ABNORMAL) CBC and differential (12/20/2024 9:00 AM EDT) WBC Count 0.59(LL) 3.70 - 10.30 10*3/uL LAB HEMATOLOGY METHOD 12/20/2024 10:25 AM EDT [facility] RBC Count 2.46(L) 4.60 - 6.10 10*6/uL LAB HEMATOLOGY METHOD 12/20/2024 10:25 AM EDT [facility] HGB 7.8(L) 13.7 - 17.5 g/dL LAB HEMATOLOGY METHOD 12/20/2024 10:25 AM EDT [facility] HCT 22.0(L) 40.0 - 51.0 % LAB HEMATOLOGY METHOD 12/20/2024 10:25 AM EDT [facility] Platelet Count 22(L) 155 - 369 10*3/uL LAB HEMATOLOGY METHOD 12/20/2024 10:25 AM EDT [facility] MCV 89 79 - 98 fL LAB HEMATOLOGY METHOD 12/20/2024 10:25 AM EDT [facility] MCH 31.7 26.0 - 32.0 pg LAB HEMATOLOGY METHOD 12/20/2024 10:25 AM EDT [facility] MCHC 35.5 30.7 - 35.5 g/dL LAB HEMATOLOGY METHOD 12/20/2024 10:25 AM EDT [facility] RDW 16.0(H) 11.5 - 14.5 % LAB HEMATOLOGY METHOD 12/20/2024 10:25 AM EDT [facility] MPV 11.3 8.8 - 12.5 fL LAB HEMATOLOGY METHOD 12/20/2024 10:25 AM EDT [facility] nRBC 0.0 <=0.0 per 100 WBCs LAB HEMATOLOGY METHOD 12/20/2024 10:25 AM EDT [facility] Differential Type Automated LAB HEMATOLOGY METHOD 12/20/2024 10:25 AM EDT [facility] Neutrophils % 5 % LAB HEMATOLOGY METHOD 12/20/2024 10:25 AM EDT [facility] Lymphocytes % 92 % LAB HEMATOLOGY METHOD 12/20/2024 10:25 AM EDT [facility] Monocytes % 3 % LAB HEMATOLOGY METHOD 12/20/2024 10:25 AM EDT [facility] Eosinophils % 0 % LAB HEMATOLOGY METHOD 12/20/2024 10:25 AM EDT [facility] Basophils % 0 % LAB HEMATOLOGY METHOD 12/20/2024 10:25 AM EDT [facility] Immature Granulocytes % 0 % LAB HEMATOLOGY METHOD 12/20/2024 10:25 AM EDT [facility] Neutrophils Absolute 0.03(LL) 1.60 - 6.10 10*3/uL LAB HEMATOLOGY METHOD 12/20/2024 10:25 AM EDT [facility] Lymphocytes Absolute 0.54(L) 1.20 - 3.90 10*3/uL LAB HEMATOLOGY METHOD 12/20/2024 10:25 AM EDT [facility] Monocytes Absolute 0.02(L) 0.30 - 0.90 10*3/uL LAB HEMATOLOGY METHOD 12/20/2024 10:25 AM EDT [facility] Eosinophils Absolute 0.00 0.00 - 0.50 10*3/uL LAB HEMATOLOGY METHOD 12/20/2024 10:25 AM EDT [facility] Basophils Absolute 0.00 0.00 - 0.10 10*3/uL LAB HEMATOLOGY METHOD 12/20/2024 10:25 AM EDT [facility] Immature Granulocytes Absolute 0.00 0.00 - 0.06 10*3/uL LAB HEMATOLOGY METHOD 12/20/2024 10:25 AM EDT [facility] Blood Blood sample taken from central line / Unknown (Central Line) Existing Catheter / Unknown 12/20/2024 9:00 AM EDT 12/20/2024 9:13 AM EDT Narrative [facility] - 12/20/2024 10:25 AM EDT Therapeutic decision making should be based on absolute values, rather than percentages. us Christina Ramos MD LAB BLOOD ORDERABLES Final Resul t [facility] [address] [place] [address] * (ABNORMAL) CBC and differential (12/18/2024 9:14 AM EDT) WBC Count 0.51(LL) 3.70 - 10.30 10*3/uL LAB HEMATOLOGY METHOD 12/18/2024 10:49 AM EDT [facility] RBC Count 2.50(L) 4.60 - 6.10 10*6/uL LAB HEMATOLOGY METHOD 12/18/2024 10:49 AM EDT [facility] HGB 8.1(L) 13.7 - 17.5 g/dL LAB HEMATOLOGY METHOD 12/18/2024 10:49 AM EDT [facility] HCT 21.9(L) 40.0 - 51.0 % LAB HEMATOLOGY METHOD 12/18/2024 10:49 AM EDT [facility] Platelet Count 6(LL) 155 - 369 10*3/uL LAB HEMATOLOGY METHOD 12/18/2024 10:49 AM EDT [facility] MCV 88 79 - 98 fL LAB HEMATOLOGY METHOD 12/18/2024 10:49 AM EDT [facility] MCH 32.4(H) 26.0 - 32.0 pg LAB HEMATOLOGY METHOD 12/18/2024 10:49 AM EDT [facility] MCHC 37.0(H) 30.7 - 35.5 g/dL LAB HEMATOLOGY METHOD 12/18/2024 10:49 AM EDT [facility] RDW 16.7(H) 11.5 - 14.5 % LAB HEMATOLOGY METHOD 12/18/2024 10:49 AM EDT [facility] MPV LAB HEMATOLOGY METHOD 12/18/2024 10:49 AM EDT [facility] Comment:Not Measured nRBC 0.0 <=0.0 per 100 WBCs LAB HEMATOLOGY METHOD 12/18/2024 10:49 AM EDT [facility] Differential Type Automated LAB HEMATOLOGY METHOD 12/18/2024 10:49 AM EDT [facility] Neutrophils % 6 % LAB HEMATOLOGY METHOD 12/18/2024 10:49 AM EDT [facility] Lymphocytes % 90 % LAB HEMATOLOGY METHOD 12/18/2024 10:49 AM EDT [facility] Monocytes % 4 % LAB HEMATOLOGY METHOD 12/18/2024 10:49 AM EDT [facility] Eosinophils % 0 % LAB HEMATOLOGY METHOD 12/18/2024 10:49 AM EDT [facility] Basophils % 0 % LAB HEMATOLOGY METHOD 12/18/2024 10:49 AM EDT [facility] Immature Granulocytes % 0 % LAB HEMATOLOGY METHOD 12/18/2024 10:49 AM EDT [facility] Neutrophils Absolute 0.03(LL) 1.60 - 6.10 10*3/uL LAB HEMATOLOGY METHOD 12/18/2024 10:49 AM EDT [facility] Lymphocytes Absolute 0.46(L) 1.20 - 3.90 10*3/uL LAB HEMATOLOGY METHOD 12/18/2024 10:49 AM EDT [facility] Monocytes Absolute 0.02(L) 0.30 - 0.90 10*3/uL LAB HEMATOLOGY METHOD 12/18/2024 10:49 AM EDT [facility] Eosinophils Absolute 0.00 0.00 - 0.50 10*3/uL LAB HEMATOLOGY METHOD 12/18/2024 10:49 AM EDT [facility] Basophils Absolute 0.00 0.00 - 0.10 10*3/uL LAB HEMATOLOGY METHOD 12/18/2024 10:49 AM EDT [facility] Immature Granulocytes Absolute 0.00 0.00 - 0.06 10*3/uL LAB HEMATOLOGY METHOD 12/18/2024 10:49 AM EDT [facility] Blood Blood sample taken from central line / Unknown Venipuncture / Unknown 12/18/2024 9:14 AM EDT 12/18/2024 9:20 AM EDT Narrative [facility] - 12/18/2024 10:49 AM EDT Therapeutic decision making should be based on absolute values, rather than percentages. us Christina Ramos MD LAB BLOOD ORDERABLES Final Resul t [facility] [address] [place] [address] documented in this encounter Visit Diagnoses Diagnosis [...] documented as of this encounter Care Teams 2Nd Pressman Relationship Specialty Start Date End Date Zhao Harris MD [address] [place] [address] PCP - General 12/03/20 documented as of this encounter
--- OUTSIDE RECORDS SUMMARY | 2025-01-29 08:20 | XMS_ITS | Encounter Summary ---
Author Organization [facility] Address [address] [place] [address] Care Team Providers Care Outdoor Recreation Specialist Name Role Phone Zhao Harris MD Primary Care Provider [phone] Encounter Details Date Type Department Care Team [...] drink first t manav in the morning (EYE-SLIP LASTER) to steady your nerves or to [...] Upcoming Encounters Date Type Department Care Team ([facility] Contact Info) Description 02/02/2025 11:00 AM EDT Appointment P[facility] A Interventional Radiology [address] [place] [address] 02/10/2025 8:30 AM EDT Clinical Support [facility] CC Hematology/BMT and Cellular Therapy Program [address] [place] [address] [place] [address] 02/10/2025 9:00 AM EDT Office Visit [facility] CC Hematology/BMT and Cellular Therapy Program [address] [place] [phone] Elaina Boss, PA 800 [facility] [address] [place] [address] 02/10/2025 10:30 AM EDT Appointment [facility] 1 [address] [place] [address] 02/11/2025 2:00 PM EDT Appointment [facility] 1 [address] [place] [address] 02/12/2025 2:00 PM EDT Appointment [facility] [address] [place] [address] 02/13/2025 2:00 PM EDT Appointment [facility] [address] [place] [address] 02/14/2025 2:00 PM EDT Appointment [facility] 1 [address] [place] [address] 03/10/2025 8:30 AM EDT Clinical Support [facility] CC Hematology/BMT and Cellular Therapy Program [address] [place] [address] [place] [address] 03/10/2025 9:00 AM EDT Office Visit [facility] CC Hematology/BMT and Cellular Therapy Program [address] [place] [address] [place] [phone] Isaura Wynn, PUMP HOUSE OPERATOR 800 [facility] [address] [place] [address] 03/10/2025 11:20 AM EDT Office Visit Pav CC Head, Neck & Respiratory 800 [facility], [address]nd [place] [address] Elsa Razo, PUMP HOUSE OPERATOR [address] [place] [phone] documented as of this encounter Visit Diagnoses [...] documented as of this encounter Care Teams Outdoor Recreation Specialist Relationship Specialty Start Date End Date Zhao Harris MD [address] [facility] [address] [place] [id number] PCP - General 12/03/20 documented as of this encounter
--- OUTSIDE RECORDS SUMMARY | 2025-01-29 08:20 | XMS_ITS | Encounter Summary ---
Author Organization Healthcare Address [address] [place] [address] Care Team Providers Care Budget Technician Name Role Phone Zhao Harris MD Primary Care Provider [phone] Encounter Details Date Type Department Care Team [...] first t manav in the morning (EYE-PROGRAM DEVELOPMENT MANAGER) to steady your nerves or [...] Appointment [facility] A Interventional Radiology [address] [place] [address] 02/10/2025 8:30 AM EDT Clinical Support [facility] Hematology/BMT and Cellular Therapy Program [address] [place] [address] [place] [address] 02/10/2025 9:00 AM EDT Office Visit [facility] Hematology/BMT and Cellular Therapy Program [address] [place] [phone] Elaina Boss, PA [address] [facility] [address] [place] [address] 02/10/2025 10:30 AM EDT Appointment [facility] Infusion [facility] [address] [place] [address] 02/11/2025 2:00 PM EDT Appointment [facility] [address] [place] [address] 02/12/2025 2:00 PM EDT Appointment [facility] [address] [place] [address] 02/13/2025 2:00 PM EDT Appointment [facility] [address] [place] [address] 02/14/2025 2:00 PM EDT Appointment [facility] [address] [place] [address] 03/10/2025 8:30 AM EDT Clinical Support [facility] Hematology/BMT and Cellular Therapy Program [address] [place] [address] [place] [address] 03/10/2025 9:00 AM EDT Office Visit [facility] Hematology/BMT and Cellular Therapy Program [address] [place] [address] [place] [phone] Isaura Wynn, CLERICAL MANAGER 800 [facility] [address] [place] [address] 03/10/2025 11:20 AM EDT Office Visit [facility] CC Head, Neck & Respiratory [address] [facility], [address] [place] [address] Elsa Razo, CLERICAL MANAGER [address] [place] [phone] documented as of this encounter Visit Diagnoses [...] documented as of this encounter Care Teams Budget Technician Relationship Specialty Start Date End Date Zhao Harris MD [address] [facility] [address] [place] [phone] PCP - General 12/03/20 documented as of this encounter
--- OUTSIDE RECORDS SUMMARY | 2025-01-29 08:20 | XMS_ITS | Encounter Summary ---
Author Organization [employer] ([place], [place], [place], [place]) Address [address] [place] [address] Care Team Providers Care Social Economist Name Role Phone Unavailable Primary Care Provider Unavailabl e Encounter Details Date Type Department Care Team (Late st Contact Info) Description 07/10/2019 Transcribed Document [facility] Family Medicine [address] [place] [address] ProviderBrigida MD [address] [place] [address] Social History Tobacco Use Types [...] Brigida Vega MD - 07/10/2019 9:18 AM COMMUNICATIONS AND SIGNALS SUPERVISOR Patient Education Materials Follows: Local Anesthesia, Care [...] activities are safe for you. ??? Take taqh-sbq-rrvrqbo and prescription medicines only as told by [...] 12/28/2017 Document Revised: 03/07/2018 Document Reviewed: 12/28/2017 [employer] Interactive Patient Education ? 2019 [employer] General Anesthesia, Adult, Care After This [...] activities are safe for you. ??? Take idxv-mab-fqriqfl and prescription medicines only as told by [...] 10/15/2001 Document Revised: 02/22/2018 Document Reviewed: 02/22/2018 [employer] Interactive Patient Education ? 2019 [employer] Knee Arthroscopy, Care After Refer to [...] activities are safe for you. ??? Perform pkjgr-ij-yrbark exercises only as directed by your health [...] 01/26/2006 Document Revised: 12/08/2016 Document Reviewed: 07/05/2015 [employer] Interactive Patient Education ? 2018 [employer] documented in this encounter Plan of Treatment Not on file documented as of this encounter Visit Diagnoses Not on filedocumented in this encounter
--- OUTSIDE RECORDS SUMMARY | 2025-01-29 08:20 | XMS_ITS | Encounter Summary ---
Author Organization [employer] ([place], [place], [place], [place]) Address [address] [place] [address] Care Team Providers Care Independent Living Advisor Name Role Phone Unavailable Primary Care Provider Unavailabl e Encounter Details Date Type Department Care Team (Late st Contact Info) Description 07/10/2019 Transcribed Document [facility] [address] [place] [address] ProviderBrigida MD [address] [place] [address] Social History Tobacco Use Types [...] - Brigida ProviderMD - 07/10/2019 7:57 AM PHYSICIAN/OPHTHALMOLOGIST [facility] Main OR PostOp Summary Primary Physician: SURY SHARMA MD-ORT Finalized Date/Time: 07/10/19 10:03:33 Pt. Name: HUGO AGUILAR JR, D.O.B./Sex: 1955 Male Med Rec #: [id number] Physician: SURY SHARMA MD-ORT Financial #: [id number] Pt. Type: O Room/Bed: Admit/Disch: 07/10/19 05:55:00 - Institution: [facility] Main OR PostOp Case Times Entry 1 In PACU II 07/10/19 09:10:00 Ready for PACU II 07/10/19 10:00:00 Discharge Discharge from PACU 07/10/19 10:00:00 II Last Modified By: Laquita Romero RN 07/10/19 10:03:30 [facility] Main OR PostOp Case Times Audit 07/10/19 10:03:30 Health Systems Analyst: [id number] Modifier: [id number] <+> 1 Ready for PACU II Discharge <+> 1 Discharge from PACU II Finalized By: Laquita Romero RN Document Signatures Signed By: Laquita Romero RN 07/10/19 10:03 documented in this encounter Plan of Treatment Not on file documented as of this encounter Visit Diagnoses Not on filedocumented in this encounter
--- OUTSIDE RECORDS SUMMARY | 2025-01-29 08:20 | XMS_ITS | Encounter Summary ---
Author Organization [employer] ([place], [place], [place], [place]) Address [address] [place] [address] Care Team Providers Care Car Wiper Name Role Phone Unavailable Primary Care Provider Unavailabl e Encounter Details Date Type Department Care Team (Late st Contact Info) Description 07/10/2019 Transcribed Document [facility] [place] Medicine [address] [place] [address] ProviderBrigida MD [address] [place] [address] Social History Tobacco Use Types [...] Brigida Vega MD - 07/10/2019 8:16 AM CHARGE ACCOUNT CLERK Patient: HUGO AGUILAR JR Age: 63 years [...]
--- OUTSIDE RECORDS SUMMARY | 2025-01-29 08:20 | XMS_ITS | Encounter Summary ---
Author Organization [employer] ([place], [place], [place], [place]) Address [address] [place] [address] Care Team Providers Care Lead Security Officer Name Role Phone Unavailable Primary Care Provider Unavailabl e Encounter Details Date Type Department Care Team (Late st Contact Info) Description 07/10/2019 Transcribed Document [facility] [place] Family Medicine [address] [place] [address] ProviderBrigida MD [address] [place] [address] Social History Tobacco Use Types [...] Brigida Vega MD - 07/10/2019 9:20 AM [place] [place] [address] HUGO AGUILAR JR :1955 Visit Time:07/10/2019 What to do next Your Diagnosis Chondromalacia, right knee, Chondromalacia, right knee Instructions From Your Care Team Weight bearing as tolerated, use cane or crutches if needed. Keep dressing clean and dry for at least 2 days. Resume all home medications. Usual diet as tolerated. Columbia 10/325mg 1 tablet every 6 hours as needed for pain- next dose due @ 3:30pm today 07/10/19. Follow-Up Appointments Follow Up with SURY SHARMA MD-ORT When 07/21/2019 02:00 PM EST Where: [address] [facility] [address] [place] [address]- Medications What How Much When Instructions Next [...] activities are safe for you. ??? Take hbtb-pbu-ktqzkqd and prescription medicines only as told by [...] 12/28/2017 Document Revised: 03/07/2018 Document Reviewed: 12/28/2017 [employer] Interactive Patient Education ?? 2019 [employer] General Anesthesia, Adult, Care After This [...] activities are safe for you. ??? Take hzuu-jri-lxllxje and prescription medicines only as told by [...] 10/15/2001 Document Revised: 02/22/2018 Document Reviewed: 02/22/2018 [employer] Interactive Patient Education ?? 2019 [employer] Knee Arthroscopy, Care After Refer to [...] activities are safe for you. ??? Perform hwsgi-qc-pugoab exercises only as directed by your health [...] 01/26/2006 Document Revised: 12/08/2016 Document Reviewed: 07/05/2015 [employer] Interactive Patient Education ?? 2018 [employer]. acetaminophen and hydrocodone (a SEET a MIN oh fen and laurie droe KOE done) Hycet, Lorcet, Columbia, Verdrocet, Vicodin, Xodol, Zamicet What is the [...] may report side effects to FDA at 2-734-VSV-9084. What other drugs will affect acetaminophen and [...] affect acetaminophen and hydrocodone, including prescription and xmgw-tnd-zralfiz medicines, vitamins, and herbal products. Not all [...] to ensure that the information provided by [employer]. ('[employer]') is accurate, up-to-date, and complete, but no guarantee is made to that effect. Drug information contained herein may be time sensitive. [employer] information has been compiled for use by healthcare practitioners and consumers in the [place] and therefore [employer] does not warrant that uses outside of the [place] are appropriate, unless specifically indicated otherwise. [employer] drug information does not endorse drugs, diagnose patients or recommend therapy. [employer] drug information is an informational resource designed [...] effective or appropriate for any given patient. [facility] does not assume any responsibility for any aspect of healthcare administered with the aid of information [facility] provides. The information contained herein is not intended to cover all possible uses, directions, precautions, warnings, drug interactions, allergic reactions, or adverse effects. If you have questions about the drugs you are taking, check with your doctor, nurse or pharmacist. Copyright 3722-2837 [employer]. Version: 15.02. Revision Date: 05/27/2018. Emergency Awareness [...] Assistance with quitting is available by contacting 9-692-QKBD-NOW. This is a free resource providing counseling, [...] was given the opportunity to ask questions. Patient/Construction Manager Name: Patient/Construction Manager Signature: Relationship to Patient: Clinician/Hospital Construction Manager Signature: Date: documented in this encounter Plan of Treatment Not on file documented as of this encounter Visit Diagnoses Not on filedocumented in this encounter
--- OUTSIDE RECORDS SUMMARY | 2025-01-29 08:20 | XMS_ITS | Encounter Summary ---
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 Pre Procedure Adult Entered On: 07/10/2019 7:21 EST Performed On: 07/10/2019 7:17 EST by RONNY BLISS RN Height and Weight, Clinical Dosing Height Source : Stated Height Entry Format : [place] Height, Feet : 5 ft(Converted to: 152 cm, 60 Inch) Height, Inches : 7 Inch(Converted to: 0 ft 7 Inch, 17.78 cm) Clinical Height : 170.18 cm Weight Source : Standing scale Weight Entry Format : [place] Clinical Dosing Weight : 86.36 kg Weight, Pounds : 190 lb Body Surface Area (BSA) : 1.98 m2 Body Mass Index : 29.8 kg/m2 (HI) [place] Body Weight : 65 kg RONNY BLISS [...] Days : No Contact With Traveler to [facility] : No Tuberculosis Symptoms : None [...] RONNY BLISS RN - 07/10/2019 7:17 EST Armstrong Suicide Severity Rating Scale (C-SSRS) CSSRS Past [...] Arrival on Unit : Ambulatory 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 Emergency Contact #2 Phone Number : . Emergency Contact #2 Relationship : . Information Obtained From : Patient Primary Language : Swiss Preferred Communication Mode : Verbal Communication Barrier [...] Scale Risk Level : 25-45 Medium Risk [place] Fall Interventions : Adequate lighting, Bed in [...]
--- OUTSIDE RECORDS SUMMARY | 2025-01-29 08:21 | XMS_ITS | Clinical Summary ---
Author Organization [employer] ([place], [place], [place], [place]) Address [address] [place] [address] Care Team Providers Care Doctor Osteopathic Name Role Phone Unavailable Primary Care Provider [...]
--- OUTSIDE RECORDS SUMMARY | 2025-01-29 08:21 | XMS_ITS | Clinical Summary ---
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 10 tablet 11 5 Active Additional Information Patient not taking.Reported on 01/13/2025 bisoprolol (Zebeta) 5 MG tabletIndicatio ns:Coronary artery disease involving cachil dehe heart with [...] 30 tablet 3 5 Active HYDROcodone-shalom taminophen ([place]) 5-325 MG tablet Take 1 tablet by [...] Patient not taking.Reported on 01/06/2025 venetoclax (Venclexta) 50 MG tabletIndicatio ns:Myelodysplas ia (myelodysplasti c syndrome) (CMS/HCC) Take 1 tablet by mouth daily for 14 days. Take on days 1-14 of a 28 day cycle in combination with other tablets for a total of 70mg daily. 14 tablet 5 01/28/20 25 venetoclax (Venclexta) 10 MG tabletIndicatio ns:Myelodysplas ia (myelodysplasti c syndrome) (CMS/HCC) Take 2 tablets by mouth daily for 14 days. Take 2 tabs on days 1-14 of a 28 day cycle in combination with other tablets for a total of 70mg daily. 28 tablet 5 01/28/20 25 Active Problems Problem Noted Date Diagnosed Date [...] Encounters Date Type Department Care Team Description 01/27/2025 Telephone [facility] Interventional Radiology [address] [place] [address] Bandar Cleary RN 01/22/2025 Telephone [facility] Hematology/BMT and Cellular Therapy Program [address] [facility] [place] [address] Virgen Vargas MD 01/20/2025 Telephone [facility] Hematology/BMT and Cellular Therapy Program [address] [facility] [place] [place] [address] Elaina Boss PA 01/17/2025 7:45 AM EDT - 01/17/2025 11:59 PM EDT Hospital Encounter [facility] Infusion [address] [place] [address] Myelodysplasia (myelodysplastic syndrome) (CMS/HCC) (Primary Dx); Thrombocytopenia (CMS/HCC) Discharge Disposition: Home or Self Care 01/17/2025 Travel 01/16/2025 7:55 AM EDT - 01/16/2025 11:59 PM EDT Hospital Encounter [facility] Infusion [address] [place] [address] Myelodysplasia (myelodysplastic syndrome) (CMS/HCC) (Primary Dx) Discharge Disposition: Home or Self Care 01/16/2025 Travel 01/15/2025 9:58 AM EDT - 01/15/2025 11:59 PM EDT Hospital Encounter [facility] Infusion [address] [place] [address] Discharge Disposition: Home or Self Care 01/15/2025 8:11 AM EDT - 01/15/2025 9:57 AM EDT Hospital Encounter [facility] Infusion [address] [place] [address] Myelodysplasia (myelodysplastic syndrome) (CMS/HCC) (Primary Dx); Thrombocytopenia (CMS/HCC) Discharge Disposition: Home or Self Care 01/15/2025 Travel 01/14/2025 8:07 AM EDT - 01/14/2025 11:59 PM EDT Hospital Encounter [facility] Infusion [facility] 1 [address] [place] [address] Myelodysplasia (myelodysplastic syndrome) (CMS/HCC) (Primary Dx) Discharge Disposition: Home or Self Care 01/14/2025 Travel 01/13/2025 11:30 AM EDT - 01/13/2025 11:59 PM EDT Hospital Encounter [facility] Infusion [address] [place] [address] Myelodysplasia (myelodysplastic syndrome) (CMS/HCC) (Primary Dx); Thrombocytopenia (CMS/HCC) Discharge Disposition: Home or Self Care 01/13/2025 10:00 AM EDT Office Visit [facility] Hematology/BMT and Cellular Therapy Program [address] [address] Isaura Wynn APRN Myelodysplasia (myelodysplastic syndrome) (CMS/HCC) (Primary Dx) 01/13/2025 9:30 AM EDT Clinical Support [facility] Hematology/BMT and Cellular Therapy Program [address] [address] 01/13/2025 Travel 01/12/2025 Telephone [facility] Hematology/BMT and Cellular Therapy Program [address] [address] Virgen Vargas MD 01/06/2025 9:00 AM EDT Procedure Visit [facility] Hematology/BMT and Cellular Therapy Program [address] [address] Kierra Novak APRN Myelodysplasia (myelodysplastic syndrome) (CMS/HCC) 01/06/2025 8:30 AM EDT Clinical Support [facility] Hematology/BMT and Cellular Therapy Program [address] [address] Nate Ponce RN 01/06/2025 Travel 01/05/2025 Travel 01/01/2025 [facility] [place] [address] [facility] [place] [address] Ra Best MD 12/23/2024 Orders Only [facility] Hematology/BMT and Cellular Therapy Program [address] [facility], [address] [place] [address] Adam Conway, RN Myelodysplasia (myelodysplastic syndrome) (CMS/HCC) (Primary Dx) 12/22/2024 9:58 AM EDT - 12/22/2024 11:59 PM EDT Hospital Encounter [facility] Infusion [address] [place] [address] Myelodysplasia (myelodysplastic syndrome) (CMS/HCC) (Primary Dx) Discharge Disposition: Home or Self Care 12/22/2024 8:24 AM EDT - 12/22/2024 9:57 AM EDT Hospital Encounter [facility] Infusion [address] [place] [address] Myelodysplasia (myelodysplastic syndrome) (CMS/HCC) (Primary Dx); Thrombocytopenia (CMS/HCC) Discharge Disposition: Home or Self Care 12/22/2024 Travel 12/21/2024 8:30 AM EDT - 12/21/2024 11:59 PM EDT Hospital Encounter [facility]fusion [facility] 1 [address] [place] [address] Myelodysplasia (myelodysplastic syndrome) (CMS/HCC) (Primary Dx) Discharge Disposition: Home or Self Care 12/21/2024 Travel 12/20/2024 8:08 AM EDT - 12/20/2024 11:59 PM EDT Hospital Encounter [facility]fusion [facility] 1 [address] [place] [address] Myelodysplasia (myelodysplastic syndrome) (CMS/HCC) (Primary Dx); Thrombocytopenia (CMS/HCC); SOB (shortness of breath) Discharge Disposition: Home or Self Care 12/20/2024 Travel 12/19/2024 8:30 AM EDT - 12/19/2024 11:59 PM EDT Hospital Encounter [facility] Infusion [facility] 2 [address] [place] [address] Myelodysplasia (myelodysplastic syndrome) (CMS/HCC) (Primary Dx) Discharge Disposition: Home or Self Care 12/19/2024 Travel 12/18/2024 9:46 AM EDT - 12/18/2024 11:59 PM EDT Hospital Encounter [facility] Infusion [address] [place] [address] Myelodysplasia (myelodysplastic syndrome) (CMS/HCC) (Primary Dx) Discharge Disposition: Home or Self Care 12/18/2024 8:30 AM EDT - 12/18/2024 9:45 AM EDT Hospital Encounter [facility] Infusion [address] [place] [address] Myelodysplasia (myelodysplastic syndrome) (CMS/HCC) (Primary Dx); Thrombocytopenia (CMS/HCC) Discharge Disposition: Home or Self Care 12/18/2024 Travel 12/17/2024 8:23 AM EDT - 12/17/2024 11:59 PM EDT Hospital Encounter [facility] Infusion [address] [place] [address] Myelodysplasia (myelodysplastic syndrome) (CMS/HCC) (Primary Dx); Thrombocytopenia (CMS/HCC) Discharge Disposition: Home or Self Care 12/17/2024 Travel 12/16/2024 11:00 AM EDT - 12/16/2024 11:59 PM EDT Hospital Encounter [facility] Infusion [address] [place] [address] Myelodysplasia (myelodysplastic syndrome) (CMS/HCC) (Primary Dx) Discharge Disposition: Home or Self Care 12/16/2024 10:00 AM EDT - 12/16/2024 10:59 AM EDT Hospital Encounter [facility] Infusion [address] [place] [address] Myelodysplasia (myelodysplastic syndrome) (CMS/HCC) (Primary Dx); Thrombocytopenia (CMS/HCC) Discharge Disposition: Home or Self Care 12/16/2024 8:30 AM EDT Office Visit [facility] Hematology/BMT and Cellular Therapy Program [address] [facility], [facility] [place] [address] Isaura Wynn APRN Myelodysplasia (myelodysplastic syndrome) (CMS/HCC) (Primary Dx) 12/16/2024 8:00 AM EDT Clinical Support [facility] Hematology/BMT and Cellular Therapy Program [address] [facility], [address] [place] [address] [place] [address] 12/16/2024 Orders Only [facility] Hematology/BMT and Cellular Therapy Program [address] [facility], [address] [place] [phone] Christina Ramos MD Myelodysplasia (myelodysplastic syndrome) (CMS/HCC) (Primary Dx) 12/16/2024 Travel 12/12/2024 Orders Only [facility] Hematology/BMT and Cellular Therapy Program [address] [facility], [address] [place] [phone] Gricel Gonzalez RN 12/11/2024 2:30 PM EDT Office Visit [facility] Vascular Interventional Radiology [address] [facility] [address] [place] [address] Judy Leung APRN, SHEEBA Port-A-Cath in place (Primary Dx); Myelodysplasia (myelodysplastic syndrome) (CMS/HCC) 12/11/2024 1:00 PM EDT Clinical Support [facility] Treatment [facility] [address] [facility], 2nd [place] [address] Myelodysplasia (myelodysplastic syndrome) (CMS/HCC) (Primary Dx); Thrombocytopenia (CMS/HCC) 12/11/2024 9:00 AM EDT Office Visit [facility] Hematology/BMT and Cellular Therapy Program [address] [facility], [address] [place] [address] Virgen Vargas MD Myelodysplasia (myelodysplastic syndrome) (CMS/HCC) (Primary Dx); Encounter for antineoplastic chemotherapy; 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); Pancytopenia due to chemotherapy (CMS/HCC); Immunosuppressed due to chemotherapy 12/11/2024 8:30 AM EDT Clinical Support [facility] Hematology/BMT and Cellular Therapy Program [address] [facility], [address] [place] [phone] Myelodysplasia (myelodysplastic syndrome) (CMS/HCC) 12/11/2024 Orders Only [facility] Hematology/BMT and Cellular Therapy Program [address] [facility] [place] [phone] Shahla Mejia RN 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) (Primary Dx) 12/11/2024 Travel 12/09/2024 1:30 PM EDT Clinical Support [facility] [address] [facility], 2nd [place] [address] Myelodysplasia (myelodysplastic syndrome) (CMS/HCC) (Primary Dx); Thrombocytopenia (CMS/HCC) 12/09/2024 9:00 AM EDT Procedure Visit [facility] Hematology/BMT and Cellular Therapy Program [address] [facility] [address] Kierra Novak APRN Myelodysplasia (myelodysplastic syndrome) (CMS/HCC) 12/09/2024 8:30 AM EDT Clinical Support [facility] CC Hematology/BMT and Cellular Therapy Program [address] [facility], [address] [place] [phone] 12/09/2024 Telephone [facility] Hematology/BMT and Cellular Therapy Program [address] [facility], [address] [place] [address] Essie Ricks RN 12/09/2024 Travel 12/08/2024 Travel 12/04/2024 Telephone [facility] Vascular Interventional Radiology [address] [place] [address] Martha William 12/01/2024 8:41 AM EDT - 12/01/2024 11:59 PM EDT Hospital Encounter [facility] Interventional Radiology [address] [place] [address] Gela Singer Thrombocytopenia (CMS/HCC) (Primary Dx); Myelodysplasia (myelodysplastic syndrome) (CMS/HCC) Discharge Disposition: Home or Self Care 12/01/2024 Travel 11/26/2024 10:00 AM EDT Office Visit [facility] Vascular Interventional Radiology [address] [place] [address] Latoya Nunez, SOA ENGINEER Preop examination (Primary Dx) 11/26/2024 Travel 11/25/2024 Telephone [facility] Hematology/BMT and Cellular Therapy Program [address], [address] [place] [address] Michelle Mast Distress Screen Follow-up 11/24/2024 2:30 PM EDT - 11/24/2024 11:59 PM EDT Hospital Encounter [facility] Infusion Clinic 1 [address] [place] [address] Discharge Disposition: Home or Self Care 11/24/2024 1:59 PM EDT - 11/24/2024 2:29 PM EDT Hospital Encounter [facility] Infusion [facility] 1 [address] [place] [address] Myelodysplasia (myelodysplastic syndrome) (CMS/HCC) (Primary Dx); Thrombocytopenia (CMS/HCC) Discharge Disposition: Home or Self Care 11/24/2024 Travel 11/23/2024 1:43 PM EDT - 11/23/2024 11:59 PM EDT Hospital Encounter [facility] Infusion Clinic 1 [address] [place] [address] Myelodysplasia (myelodysplastic syndrome) (CMS/HCC) (Primary Dx) Discharge Disposition: Home or Self Care 11/23/2024 Travel 11/22/2024 1:59 PM EDT - 11/22/2024 11:59 PM EDT Hospital Encounter [facility] Infusion Clinic 1 [address] [place] [address] Myelodysplasia (myelodysplastic syndrome) (CMS/HCC) (Primary Dx); Thrombocytopenia (CMS/HCC) Discharge Disposition: Home or Self Care 11/22/2024 Travel 11/21/2024 1:30 PM EDT - 11/21/2024 11:59 PM EDT Hospital Encounter [facility] Infusion Clinic 1 [address] [place] [address] Myelodysplasia (myelodysplastic syndrome) (CMS/HCC) (Primary Dx) Discharge Disposition: Home or Self Care 11/21/2024 Travel 11/20/2024 2:06 PM EDT - 11/20/2024 11:59 PM EDT Hospital Encounter [facility] Infusion [facility] 1 [address] [place] [address] Myelodysplasia (myelodysplastic syndrome) (CMS/HCC) (Primary Dx) Discharge Disposition: Home or Self Care 11/20/2024 1:36 PM EDT - 11/20/2024 2:05 PM EDT Hospital Encounter [facility] Infusion [facility] 1 [address] [place] [address] Myelodysplasia (myelodysplastic syndrome) (CMS/HCC) (Primary Dx); Thrombocytopenia (CMS/HCC) Discharge Disposition: Home or Self Care 11/20/2024 Travel 11/19/2024 2:00 PM EDT - 11/19/2024 11:59 PM EDT Hospital Encounter [facility] Infusion Clinic 1 [address] [place] [address] Myelodysplasia (myelodysplastic syndrome) (CMS/HCC) (Primary Dx) Discharge Disposition: Home or Self Care 11/19/2024 Travel 11/19/2024 Orders Only [facility] Hematology/BMT and Cellular Therapy Program [address] [place] [address] Adam Conway RN Myelodysplasia (myelodysplastic syndrome) (CMS/HCC) (Primary Dx) 11/18/2024 12:25 PM EDT - 11/18/2024 11:59 PM EDT Hospital Encounter [facility] Infusion Clinic 1 [address] [place] [address] Myelodysplasia (myelodysplastic syndrome) (CMS/HCC) (Primary Dx); Thrombocytopenia (CMS/HCC) Discharge Disposition: Home or Self Care 11/18/2024 11:00 AM EDT Office Visit [facility] CC Hematology/BMT and Cellular Therapy Program [address] [facility], [address] [place] [address] [place] [address] Isaura Wynn APRN Myelodysplasia (myelodysplastic syndrome) (CMS/HCC) (Primary Dx) 11/18/2024 10:30 AM EDT Clinical Support [facility] Hematology/BMT and Cellular Therapy Program [address] [address] 11/18/2024 Telephone [facility] [address] [place] [phone] Maia Velasquez, PharmD 11/18/2024 Telephone [facility] Hematology/BMT and Cellular Therapy Program [address] [place] [phone] Brittny Mahoney, RN 11/18/2024 Telephone [facility] Hematology/BMT and Cellular Therapy Program [address] [phone] Gricel Gonzalez RN 11/18/2024 Travel 11/17/2024 Travel 11/10/2024 3:00 PM EDT - 11/10/2024 11:59 PM EDT Hospital Encounter [facility] [address] [place] [address] Myelodysplasia (myelodysplastic syndrome) (CMS/HCC) (Primary Dx); Thrombocytopenia (CMS/HCC) Discharge Disposition: Home or Self Care 11/10/2024 2:00 PM EDT Procedure Visit [facility] Hematology/BMT and Cellular Therapy Program [address] [phone] Elaina Boss, PA Myelodysplasia (myelodysplastic syndrome) (CMS/HCC) (Primary Dx) 11/10/2024 1:30 PM EDT Clinical Support [facility] Hematology/BMT and Cellular Therapy Program [address] [phone] Eliana Vicente, RN 11/10/2024 Travel 11/05/2024 11:00 AM EDT Clinical Support [facility] Head[facility] Neck [facility] Respiratory [address] [address] Dyspnea on exertion 11/05/2024 10:00 AM EDT Office Visit [facility] [address] [phone] Elsa Razo, SOA ENGINEER Pre-transplant evaluation for stem cell transplant (Primary Dx); Myelodysplasia (myelodysplastic syndrome) (CMS/HCC); Dyspnea on exertion; Coronary artery disease involving cachil dehe coronary artery of cachil dehe heart without angina pectoris; Thrombocytopenia (CMS/HCC) 11/05/2024 Results Follow-Up [facility] Head[facility] Neck [facility] Respiratory [address] [facility], 2nd [place] [address] Elsa Razo APRN 11/05/2024 Travel 11/03/2024 2:31 PM EDT - 11/03/2024 6:28 PM EDT Emergency [facility] Emergency Department [address] [place] [phone] Kyle Bearden MD Symptomatic anemia (Primary Dx); Thrombocytopenia (CMS/HCC); Neutropenia, unspecified type (CMS/HCC) Discharge Disposition: Home or Self Care 11/03/2024 Travel 11/03/2024 Telephone [facility] Hematology/BMT and Cellular Therapy Program [address] [facility], [address] [place] [address] Virgen Vargas MD from Last [...] drink first t manav in the morning (EYE-FORMS ANALYSIS MANAGER) to steady your nerves or to [...] Appointment [facility] Interventional Radiology [address] [place] [address] 02/10/2025 8:30 AM EDT Clinical Support [facility] Hematology/BMT and Cellular Therapy Program [address] [address] 02/10/2025 9:00 AM EDT Office Visit [facility] Hematology/BMT and Cellular Therapy Program [address] [phone] Elaina Boss PA [address] [facility] [address] [place] [phone] 02/10/2025 10:30 AM EDT Appointment [facility] Infusion Clinic 1 [address] [place] [phone] 02/11/2025 2:00 PM EDT Appointment [facility] Infusion Clinic 1 [address] [place] [phone] 02/12/2025 2:00 PM EDT Appointment [facility] Infusion Clinic 1 [address] [place] [address] 02/13/2025 2:00 PM EDT Appointment [facility] Infusion Clinic 1 [address] [place] [phone] 02/14/2025 2:00 PM EDT Appointment [facility] Infusion Clinic 1 [address] [place] [phone] 03/10/2025 8:30 AM EDT Clinical Support [facility] Hematology/BMT and Cellular Therapy Program [address] [place] [phone] 03/10/2025 9:00 AM EDT Office Visit [facility] Hematology/BMT and Cellular Therapy Program [address] [phone] Isaura Wynn, SOA ENGINEER [address] [facility] [address] [place] [phone] 03/10/2025 11:20 AM EDT Office Visit [facility] Head[facility] Neck & Respiratory [address] [facility], 2nd [place] [address] Elsa Razo, SOA ENGINEER [address] [place] [phone] Health Maintenance Due Date Last Done Comments [...] 2015 [facility]-Abdominal Aortic Aneurysm (AAA) Screening 2020 [id number] Vaccine (3 - Pfizer risk series) 11/11/2020 [...] this topic Medical Devices Implanted Type Area Newspaper Correspondent Device Identifier Shelf Expiration Date Model / Serial / Lot Port Clearvue Power 8fr - [id number] Implanted:Qty: 1 on 12/01/2024 by Mckinley Lee MD at [facility] Peripherial Vascular-[id number] / / Procedures Procedure Name Priority Date/Time [...] of8 resultswithin the time period is included. [facility] Product Code [id number] BLOO D BANK Dispense Status Transfused BLOOD BANK Blood Expiration Date [id number] BLOOD BANK Unit Number [id number] B LOOD BANK Product Blood Type 9500 BLOOD BANK Blood Type O- BLOOD BANK Crossmatch Compatible BLOOD BANK Other Kayli CHIU BLOOD BANK PRODUCT ORDER VIKAS Final Result Performing Organization Address City/State/[facility] Co de Phone Number BLOOD BANK [address] [place] [address], * (ABNORMAL) CBC and differential (01/17/2025 8:03 AM EDT) Only the most recent of17 resultswithin the time period is included. Pathologist [facility] WBC Count 0.54(LL) 3.70 - 10.30 10*3/uL LAB HEMATOLOGY METHOD 01/17/2025 9:41 AM EDT [facility] RBC Count 2.55(L) 4.60 - 6.10 10*6/uL LAB HEMATOLOGY METHOD 01/17/2025 9:41 AM EDT [facility] HGB 7.6(L) 13.7 - 17.5 g/dL LAB HEMATOLOGY METHOD 01/17/2025 9:41 AM EDT [facility] HCT 21.6(L) 40.0 - 51.0 % LAB HEMATOLOGY METHOD 01/17/2025 9:41 AM EDT [facility] Platelet Count 23(L) 155 - 369 10*3/uL LAB HEMATOLOGY METHOD 01/17/2025 9:41 AM EDT [facility] MCV 85 79 - 98 fL LAB HEMATOLOGY METHOD 01/17/2025 9:41 AM EDT [facility] MCH 29.8 26.0 - 32.0 pg LAB HEMATOLOGY METHOD 01/17/2025 9:41 AM EDT [facility] MCHC 35.2 30.7 - 35.5 g/dL LAB HEMATOLOGY METHOD 01/17/2025 9:41 AM EDT [facility] RDW 14.2 11.5 - 14.5 % LAB HEMATOLOGY METHOD 01/17/2025 9:41 AM EDT [facility] MPV 9.0 8.8 - 12.5 fL LAB HEMATOLOGY METHOD 01/17/2025 9:41 AM EDT [facility] nRBC 0.0 <=0.0 per 100 WBCs LAB HEMATOLOGY METHOD 01/17/2025 9:41 AM EDT [facility] Differential Type Automated LAB HEMATOLOGY METHOD 01/17/2025 9:41 AM EDT [facility] Neutrophils % 7 % LAB HEMATOLOGY METHOD 01/17/2025 9:41 AM EDT [facility] Lymphocytes % 91 % LAB HEMATOLOGY METHOD 01/17/2025 9:41 AM EDT [facility] Monocytes % 2 % LAB HEMATOLOGY METHOD 01/17/2025 9:41 AM EDT [facility] Eosinophils % 0 % LAB HEMATOLOGY METHOD 01/17/2025 9:41 AM EDT [facility] Basophils % 0 % LAB HEMATOLOGY METHOD 01/17/2025 9:41 AM EDT [facility] Immature Granulocytes % 0 % LAB HEMATOLOGY METHOD 01/17/2025 9:41 AM EDT [facility] Neutrophils Absolute 0.04(LL) 1.60 - 6.10 10*3/uL LAB HEMATOLOGY METHOD 01/17/2025 9:41 AM EDT [facility] Lymphocytes Absolute 0.49(L) 1.20 - 3.90 10*3/uL LAB HEMATOLOGY METHOD 01/17/2025 9:41 AM EDT [facility] Monocytes Absolute 0.01(L) 0.30 - 0.90 10*3/uL LAB HEMATOLOGY METHOD 01/17/2025 9:41 AM EDT [facility] Eosinophils Absolute 0.00 0.00 - 0.50 10*3/uL LAB HEMATOLOGY METHOD 01/17/2025 9:41 AM EDT [facility] Basophils Absolute 0.00 0.00 - 0.10 10*3/uL LAB HEMATOLOGY METHOD 01/17/2025 9:41 AM EDT [facility] Immature Granulocytes Absolute 0.00 0.00 - 0.06 10*3/uL LAB HEMATOLOGY METHOD 01/17/2025 9:41 AM EDT [facility] Blood Blood sample taken from central line / Unknown (Port) Long-term Catheter / Unknown 01/17/2025 8:03 AM EDT 01/17/2025 8:07 AM EDT Narrative [facility] - 01/17/2025 9:41 AM EDT Therapeutic decision making should be based on absolute values, rather than percentages. Virgen Vargas MD LAB BLOOD ORDERABLES Final Re sult [facility] [address] [place] [address] * Type and Screen (01/16/2025 9:54 AM [...] S Final Result Performing Organization Address [facility]/ZIP Co de Phone Number BLOOD BANK [address] [place] [address], * (ABNORMAL) Platelet count (01/16/2025 8:12 AM EDT) Only the most recent of11 resultswithin the time period is included. Platelet Count 39(L) 155 - 369 10*3/uL LAB HEMATOLOGY METHOD 01/16/2025 8:38 AM EDT [facility] Blood Blood sample taken from central line / Unknown Venipuncture / Unknown 01/16/2025 8:12 AM EDT 01/16/2025 8:27 AM EDT us Virgen Vargas MD LAB BLOOD ORDERABLES Final Re sult [facility] [address] [place] [address] * (ABNORMAL) CBC W/O Differential (01/16/2025 8:12 AM EDT) Only the most recent of2 resultswithin the time period is included. WBC Count 0.49(LL) 3.70 - 10.30 10*3/uL LAB HEMATOLOGY METHOD 01/16/2025 11:30 AM EDT [facility] RBC Count 2.65(L) 4.60 - 6.10 10*6/uL LAB HEMATOLOGY METHOD 01/16/2025 11:30 AM EDT [facility] HGB 8.0(L) 13.7 - 17.5 g/dL LAB HEMATOLOGY METHOD 01/16/2025 11:30 AM EDT [facility] HCT 23.0(L) 40.0 - 51.0 % LAB HEMATOLOGY METHOD 01/16/2025 11:30 AM EDT [facility] Platelet Count 39(L) 155 - 369 10*3/uL LAB HEMATOLOGY METHOD 01/16/2025 11:30 AM EDT [facility] MCV 87 79 - 98 fL LAB HEMATOLOGY METHOD 01/16/2025 11:30 AM EDT [facility] MCH 30.2 26.0 - 32.0 pg LAB HEMATOLOGY METHOD 01/16/2025 11:30 AM EDT [facility] MCHC 34.8 30.7 - 35.5 g/dL LAB HEMATOLOGY METHOD 01/16/2025 11:30 AM EDT [facility] RDW 14.5 11.5 - 14.5 % LAB HEMATOLOGY METHOD 01/16/2025 11:30 AM EDT [facility] MPV 10.2 8.8 - 12.5 fL LAB HEMATOLOGY METHOD 01/16/2025 11:30 AM EDT [facility] nRBC 0.0 <=0.0 per 100 WBCs LAB HEMATOLOGY METHOD 01/16/2025 11:30 AM EDT [facility] Blood Blood sample taken from central line / Unknown Venipuncture / Unknown 01/16/2025 8:12 AM EDT 01/16/2025 8:27 AM EDT Virgen Vargas MD LAB BLOOD ORDERABLES Final Re sult [facility] [address] [place] [address] * Transfuse platelets (01/15/2025 10:55 AM EDT) [...] ORDERAB LES Final Result Performing Organization Address City/[facility]/ZIP Co de Phone Number BLOOD BANK [address] [place] [address], * Prepare Leukocyte Reduced Platelets: 1 Units (01/15/2025 9:55 AM EDT) Only the most recent of13 resultswithin the time period is included. [facility] Product Code [id number] BLOO D BANK Dispense Status Transfused BLOOD BANK Blood Expiration Date [id number] BLOOD BANK Unit Number [id number] B LOOD BANK Product Blood Type 6200 BLOOD BANK Blood Type A+ BLOOD BANK Blood Venous blood specimen / Unknown Kayli CHIU BLOOD BANK PRODUCT ORDER VIKAS Final Result Performing Organization Address [facility] Co de Phone Number BLOOD BANK [address] [place] [address], * (ABNORMAL) Uric acid (01/15/2025 8:17 AM EDT) Only the most recent of3 resultswithin the time period is included. [facility] Uric Acid, Plasma 3.0(L) 3.7 - 8.0 mg/dL 01/15/2025 9:19 AM EDT [facility] Blood Blood sample taken from central line / Unknown (Port) Long-term Catheter / Unknown 01/15/2025 8:17 AM EDT 01/15/2025 8:47 AM EDT Virgen Vargas MD LAB BLOOD ORDERABLES Final Re sult [facility] [address] [place] [address] * Phosphorus (01/15/2025 8:17 AM EDT) Only the most recent of3 resultswithin the time period is included. [facility] Phosphorus, Plasma 3.1 2.5 - 4.5 mg/dL 01/15/2025 9:19 AM EDT [facility] Blood Blood sample taken from central line / Unknown (Port) Long-term Catheter / Unknown 01/15/2025 8:17 AM EDT 01/15/2025 8:47 AM EDT Virgen Vargas MD LAB BLOOD ORDERABLES Final Re sult Performing Organization Address City/[facility]/[place] [address] * Magnesium (01/15/2025 8:17 AM EDT) Only the most recent of3 resultswithin the time period is included. [facility] Magnesium, Plasma 2.2 1.9 - 2.4 mg/dL 01/15/2025 9:19 AM EDT [facility] Blood Blood sample taken from central line / Unknown (Port) Long-term Catheter / Unknown 01/15/2025 8:17 AM EDT 01/15/2025 8:47 AM EDT Virgen Vargas MD LAB BLOOD [place] [address] * LACTATE DEHYDROGENASE (01/15/2025 8:17 AM EDT) Only the most recent of3 resultswithin the time period is included. [facility] LDH, Plasma 192 116 - 250 U/L 01/15/2025 9:19 AM EDT [facility] Blood Blood sample taken from central line / Unknown (Port) Long-term Catheter / Unknown 01/15/2025 8:17 AM EDT 01/15/2025 8:47 AM EDT us Virgen Vargas MD LAB BLOOD ORDERABLES Final Re sult [facility] [address] [place] [address] * (ABNORMAL) BASIC METABOLIC PANEL (01/15/2025 8:17 AM EDT) Only the most recent of2 resultswithin the time period is included. Glucose, Plasma 96 74 - 99 mg/dL 01/15/2025 9:19 AM EDT [facility] BUN, Plasma 12 8 - 23 mg/dL 01/15/2025 9:19 AM EDT [facility] Creatinine, Plasma 0.71 0.70 - 1.20 mg/dL 01/15/2025 9:19 AM EDT [facility] BUN/Creatinine Ratio 17 01/15/2025 9:19 AM EDT [facility] Sodium, Plasma 139 136 - 145 mmol/L 01/15/2025 9:19 AM EDT [facility] Potassium, Plasma 4.1 3.6 - 4.9 mmol/L 01/15/2025 9:19 AM EDT [facility] Chloride, Plasma 108(H) 97 - 107 mmol/L 01/15/2025 9:19 AM EDT [facility] CO2, Plasma 21(L) 22 - 29 mmol/L 01/15/2025 9:19 AM EDT [facility] Anion Gap 10 6 - 16 mmol/L 01/15/2025 9:19 AM EDT [facility] Total Calcium, Plasma 8.9 8.9 - 10.2 mg/dL 01/15/2025 9:19 AM EDT [facility] eGFRcr 99.3 mL/min/1.7 3m*2 01/15/2025 9:19 AM EDT [facility] Comment:Reported eGFRcr in m L/min/1.73m2 is based the CKD-EPI 2020 equation that does not use a race coefficient. Blood Blood sample taken from central line / Unknown (Port) Long-term Catheter / Unknown 01/15/2025 8:17 AM EDT 01/15/2025 8:47 AM EDT us Virgen Vargas MD LAB BLOOD ORDERABLES Final Re sult [facility] [address] [place] [address] * (ABNORMAL) Comprehensive Metabolic Panel, Plasma (01/13/2025 10:02 AM EDT) Only the most recent of13 resultswithin the time period is included. Glucose, Plasma 104(H) 74 - 99 mg/dL 01/13/2025 10:56 AM EDT [facility] BUN, Plasma 9 8 - 23 mg/dL 01/13/2025 10:56 AM EDT [facility] Creatinine, Plasma 0.72 0.70 - 1.20 mg/dL 01/13/2025 10:56 AM EDT [facility] BUN/Creatinine Ratio 13 01/13/2025 10:56 AM EDT [facility] Sodium, Plasma 140 136 - 145 mmol/L 01/13/2025 10:56 AM EDT [facility] Potassium, Plasma 4.5 3.6 - 4.9 mmol/L 01/13/2025 10:56 AM EDT [facility] Chloride, Plasma 109(H) 97 - 107 mmol/L 01/13/2025 10:56 AM EDT [facility] CO2, Plasma 21(L) 22 - 29 mmol/L 01/13/2025 10:56 AM EDT [facility] Anion Gap 10 6 - 16 mmol/L 01/13/2025 10:56 AM EDT [facility] Total Calcium, Plasma 8.9 8.9 - 10.2 mg/dL 01/13/2025 10:56 AM EDT [facility] Total Protein 6.9 6.3 - 7.9 g/dL 01/13/2025 10:56 AM EDT [facility] Albumin, Plasma 4.1 3.5 - 5.2 g/dL 01/13/2025 10:56 AM EDT [facility] AST, Plasma 84(H) 10 - 50 U/L 01/13/2025 10:56 AM EDT [facility] ALT, Plasma 95(H) 10 - 50 U/L 01/13/2025 10:56 AM EDT [facility] Alkaline Phosphatase, Plasma 83 40 - 115 U/L 01/13/2025 10:56 AM EDT [facility] Total Bilirubin, Plasma 0.7 0.2 - 1.1 mg/dL 01/13/2025 10:56 AM EDT [facility] eGFRcr 98.9 mL/min/1.7 3m*2 01/13/2025 10:56 AM EDT [facility] Comment:Reported eGFRcr in m L/min/1.73m2 is based the CKD-EPI 2020 equation that does not use a race coefficient. Blood Blood sample taken from central line / Unknown (Port) Long-term Catheter / Unknown 01/13/2025 10:02 AM EDT 01/13/2025 10:24 AM EDT Isaura Wynn APRN LAB BLOOD ORDERABLES Final Res ult [facility] [address] [place] [address] * BIOPSY BONE MARROW (01/06/2025 10:00 AM EDT) Narrative Kierra Novak APRN - 01/06/2025 10:00 AM EDT Kierra Novak APRN 01/06/2025 10:24 AM Biopsy bone marrow Date/Time: 01/06/2025 10:00 AM Performed by: Kierra Novak APRN Authorized by: Kierra Novak APRN Consent: Consent obtained: Written Consent given by: Patient Risks, benefits, and alternatives were discussed: yes Risks discussed: Bleeding, infection and pain [place] protocol: Procedure explained and questions answered to [...] well, no immediate complications us Kierra Novak SOA ENGINEER IN CLINIC/BEDSIDE ORDERAB LES Final Result * Leukemia/Lymphoma - Immunophenotyping by Flow Cytometry (01/06/2025 9:48 AM EDT) Only the most recent of3 resultswithin the time period is included. Clinical Indication AML 01/07/2025 10:18 AM EDT [facility] Flow Cytometry Interpretation APPROXIMATELY 16% MYELOID BLASTS; EXPRESSING CD34, CD117, CD13, CD33, HLA-DR, PARTIAL CD7, PARTIAL CD123, VARIABLE CD38, AND MODERATE CD45, SEE COMMENT, BONE MARROW ASPIRATE. 01/07/2025 10:18 AM EDT [facility] Comments Specimen viability is [...] disease. Final interpretation requires morphologic correlation ([id number]). The following antibodies were used in this analysis: CD45, CD2, CD3, CD4, CD5, CD7, CD8, CD10, CD13, CD14, CD15, CD16, CD19, CD20, CD33, CD34, CD38, CD56, CD117, HLA-DR, kappa surface light chains, lambda surface light chains, CD123 01/07/2025 10:18 AM EDT [facility] Disclaimer This test was developed and its performance characteristics determined by the Immuno-Molecular Pathology Laboratory at the [facility]. It has not been cleared or [...] clinical laboratory testing. 01/07/2025 10:18 AM EDT [facility] Pathologist Signature Reviewed by: Tessie Peralta MD 01/07/2025 10:18 AM EDT [facility] MRD Indicated Test Not Indicated 10:18 AM EDT [facility] Bone Marrow Specimen from bone marrow obtained by aspiration / Unknown Non-blood Collection / Unknown 01/06/2025 9:48 AM EDT 01/06/2025 11:20 AM EDT us Virgen Vargas MD LAB FLOW CYTOMETRY ORDERABLES Final Result [facility] [address] [place] [address] * Bone marrow exam (01/06/2025 9:48 AM EDT) Only the most recent of3 resultswithin the time period is included. Case Report Bone Marrow Case: [id number] Authorizing Provider: Virgen Vargas MD Collected: 01/06/2025 0948 Ordering Location: [facility] Hematology/BMT and Received: 01/06/2025 1108 Cellular Therapy Program Pathologist: Tessie Peralta MD Specimens: A) - Bone Marrow Aspirate, left B) - Bone Marrow Biopsy, left C) - Peripheral Blood for Bone Marrow 6:13 PM EDT [facility] Final Diagnosis BONE MARROW, LEFT POSTERIOR ILIAC CREST, (PERIPHERAL SMEAR, ASPIRATE SMEARS, AND CORE BIOPSY): - MILDLY HYPOCELLULAR BONE MARROW WITH ERYTHROID HYPERPLASIA, MARKEDLY REDUCED GRANULOPOIESIS, PERSISTENT DYSPOIESIS AND 10% BLASTS, SEE COMMENT. 6:13 PM EDT [facility] at 1813 EDT Comment The marrow cellularity is composed of erythroid cells with markedly reduced granulopoiesis and decreased megakaryocytes. Persistent trilineage dyspoiesis is noted. The blast percentages are higher by flow cytometry analysis as the majority of marrow cellularity consists of erythroid precursors that are removed by flow cytometry. 5 6:13 PM EDT [facility] Clinical Information AML 12/22 6:13 PM EDT [facility] CBC and Differential PERIPHERAL [...] blasts are identified. 5 6:13 PM EDT [facility] Bone Marrow Differential BONE MARROW DIFFERENTIAL: 400 cells Normal Patient Neutrophils 15-50 0 Metamyelocytes 4-19 1 Myelocytes 1-18 2 Promyelocytes 1-8 1 Blasts 0-2 10 Monocytes 0-5 0 Erythroid 16-38 73 Lymphocytes 3-24 4 Eosinophils 0-6 1 Basophils 0-2 0 Plasma cells 0-4 8 Other 5 6:13 PM EDT [facility] Bone Marrow Aspirate and [...] trabeculae are unremarkable. 5 6:13 PM EDT [facility] Special and Immunohistochemical Stains Immunohistochemica l [...] developed by and are performed at the [facility], [address] [place] [address]. All tests reported here, except those addressing [...] negativity on decalcified specimens. 6:13 PM EDT [facility] Flow Cytometry Interpretation APPROXIMATELY 16% MYELOID BLASTS; EXPRESSING CD34, CD117, CD13, CD33, HLA-DR, PARTIAL CD7, PARTIAL CD123, VARIABLE CD38, AND MODERATE CD45, SEE COMMENT, BONE MARROW ASPIRATE ([id number]) 6:13 PM EDT [facility] Gross Description B. LEFT A single specimen is received in formalin labeled bone marrow biopsy left posterior iliac crest and consists of 2 piece(s) of tissue measuring 0.8/0.2 cm in length 0.2 cm in diameter. The specimen is submitted in to Histology for decalcification and routine processing. Cold Time: <1m 6:13 PM EDT [facility] Note: A resident was involved in the service. I attest I examined the relevant preparations for the specimens and confirmed the diagnosis or interpretation. 6:13 PM EDT [facility] Bone Marrow Peripheral blood [...] MD LAB PATHOLOGY ORDERABLES Terri l Result [facility] [address] [place] [address] * Group A Streptococcus by PCR (12/16/2024 9:40 AM EDT) Group A Streptococcus PCR Result Not Detected Not Detected 12/16/2024 11:53 AM EDT [facility] Swab Pharyngeal structure / Unknown Non-blood Collection / Unknown 12/16/2024 9:40 AM EDT 12/16/2024 10:10 AM EDT us Isaura Wynn APRN LAB MICROBIOLOGY - GENERAL ORD ERABLES Final Result Performing Organization Address City/[facility]/ZIP Co de Phone Number [facility] [address] [place] [address] * Streptococcus Culture (12/16/2024 9:40 AM EDT) Culture Reading Strep A No Streptococcus pyogenes or Streptococcus dysgalactiae isolated 12/17/2024 2:28 PM EDT [facility] Swab Pharyngeal structure / Unknown Non-blood Collection / Unknown 12/16/2024 9:40 AM EDT 12/16/2024 10:10 AM EDT us Isaura Wynn APRN LAB MICROBIOLOGY - GENERAL ORD ERABLES Final Result Performing Organization Address City/[facility] Co de Phone Number [facility] [address] [place] [address] * Morphology (12/11/2024 8:38 AM EDT) Only the most recent of4 resultswithin the time period is included. Elliptocytes/ Ovalocytes Present LAB HEMATOLOGY METHOD 12/11/2024 10:53 AM EDT [facility] RBC Morphology Slide Reviewed LAB HEMATOLOGY METHOD 12/11/2024 10:53 AM EDT [facility] Platelet Estimate Platelet smear estimate consistent with automated count LAB HEMATOLOGY METHOD 12/11/2024 10:53 AM EDT [facility] Blood Venous blood specimen / Unknown Venipuncture / Unknown 12/11/2024 8:38 AM EDT 12/11/2024 8:50 AM EDT us Virgen Vargas MD LAB BLOOD ORDERABLES Final Re sult Performing Organization Address City/[facility]/ZIP Co de Phone Number [facility] [address] [place] [address] * (ABNORMAL) Manual Differential (12/11/2024 8:38 AM EDT) Only the most recent of3 resultswithin the time period is included. Blasts % 1 % LAB HEMATOLOGY METHOD 12/11/2024 10:53 AM EDT [facility] Promyelocytes % 0 % LAB HEMATOLOGY METHOD 12/11/2024 10:53 AM EDT [facility] Myelocytes % 0 % LAB HEMATOLOGY METHOD 12/11/2024 10:53 AM EDT [facility] Metamyelocytes % 0 % LAB HEMATOLOGY METHOD 12/11/2024 10:53 AM EDT [facility] Neutrophils % 4 % LAB HEMATOLOGY METHOD 12/11/2024 10:53 AM EDT [facility] Lymphocytes % 90 % LAB HEMATOLOGY METHOD 12/11/2024 10:53 AM EDT [facility] Reactive Lymphocytes % 3 % LAB HEMATOLOGY METHOD 12/11/2024 10:53 AM EDT [facility] Monocytes % 2 % LAB HEMATOLOGY METHOD 12/11/2024 10:53 AM EDT [facility] Eosinophils % 0 % LAB HEMATOLOGY METHOD 12/11/2024 10:53 AM EDT [facility] Basophils % 0 % LAB HEMATOLOGY METHOD 12/11/2024 10:53 AM EDT [facility] Blasts Absolute 0.01 10*3/UL LAB HEMATOLOGY METHOD 12/11/2024 10:53 AM EDT [facility] Promyelocytes Absolute 0.00 10*3/uL LAB HEMATOLOGY METHOD 12/11/2024 10:53 AM EDT [facility] Myelocytes Absolute 0.00 10*3/uL LAB HEMATOLOGY METHOD 12/11/2024 10:53 AM EDT [facility] Metamyelocytes Absolute 0.00 10*3/uL LAB HEMATOLOGY METHOD 12/11/2024 10:53 AM EDT [facility] Neutrophils Absolute 0.02(LL) 1.60 - 6.10 10*3/uL LAB HEMATOLOGY METHOD 12/11/2024 10:53 AM EDT [facility] Lymphocytes Absolute 0.55(L) 1.20 - 3.90 10*3/uL LAB HEMATOLOGY METHOD 12/11/2024 10:53 AM EDT [facility] Reactive Lymphocytes Absolute 0.02 10*3/uL LAB HEMATOLOGY METHOD 12/11/2024 10:53 AM EDT [facility] Monocytes Absolute 0.01(L) 0.30 - 0.90 10*3/uL LAB HEMATOLOGY METHOD 12/11/2024 10:53 AM EDT [facility] Eosinophils Absolute 0.00 0.00 - 0.50 10*3/uL LAB HEMATOLOGY METHOD 12/11/2024 10:53 AM EDT [facility] Basophils Absolute 0.00 0.00 - 0.10 10*3/uL LAB HEMATOLOGY METHOD 12/11/2024 10:53 AM EDT [facility] Blood Venous blood specimen / Unknown Venipuncture / Unknown 12/11/2024 8:38 AM EDT 12/11/2024 8:50 AM EDT Virgen Vargas MD LAB BLOOD ORDERABLES Final Re sult Performing Organization Address City/[facility]/ZIP Co de Phone Number [facility] [address] [place] [address] * Peripheral blood smear, pathologist interpretation (12/11/2024 8:38 AM EDT) Only the most recent of3 resultswithin the time period is included. Pathologist [facility] Clinical Diagnosis, Peripheral Smear History of acute myeloid leukemia (recent bone marrow dated 12/09/2024 with 14% blasts) LAB HEMATOLOGY METHOD 12/11/2024 4:46 PM EDT [facility] Interpretation , Peripheral Smear Marked leukopenia with neutropenia and 1% circulating blasts. Dysplastic neutrophils (hypogranular) are noted. Moderate anemia and marked thrombocytopen ia. 12/11/2024 4:46 PM EDT [facility] Pathologist Signature, Peripheral Smear 12/11/2024 4:46 PM EDT [facility] Comment:Reviewed by: Omar Peralta MD Blood Venous blood specimen / Unknown Venipuncture / Unknown 12/11/2024 8:38 AM EDT 12/11/2024 8:50 AM EDT us Virgen Vargas MD LAB PATHOLOGY ORDERABLES Terri l Result Performing Organization Address [facility] Co de Phone Number [facility] [address] [place] [id number] * Chromosome Karyotype, Oncology (12/09/2024 10:15 AM EDT) Only the most recent of2 resultswithin the time period is included. Pathologist [facility] Specimen Type Bone Marrow 12/16/2024 5:59 PM EDT [facility] Clinical Indication Acute Myeloid Leukemia 12/16/2024 5:59 PM EDT [facility] Specimen Adequacy Adequate 025 5:59 PM EDT [facility] Chromosome Analysis Result Giemsa-banded metaphase cells from unstimulated bone marrow cultures showed the following chromosome pattern: 43~45,X,-Y,t(4;1 4)(q21;q32),add( 5)(q13),add(16)( q11.2),-17,add(2 0)(q11.2)[cp13]/ 46,XY[7] 12/16/2024 5:59 PM EDT [facility] Interpretation Abnormal male chromosome [...] were observed on this patient's previous specimen [id number] and indicate persistent disease. Clinical correlation is recommended. Note: Per [employer] (CAP) requirement additional karyotypes were performed and charged due to the presence of clonal abnormalities. # cells counted = 20 # cells analyzed = 20 # cells karyotyped = 3 Band resolution: 400 12/16/2024 5:59 PM EDT [facility] Pathologist Signature Reviewed by: Mesfin Rae 12/16/2024 5:59 PM EDT [facility] Bone Marrow Non-blood Collection / Unknown 12/09/2024 10:15 AM EDT 12/09/2024 12:48 PM EDT us Virgen Vargas MD LAB CYTOGENETICS ORDERABLES F inal Result [facility] [address] [place] [address] * BIOPSY BONE MARROW (12/09/2024 10:00 AM EDT) Narrative Kierra Novak APRN - 12/09/2024 10:00 AM EDT Kierra Novak APRN 12/09/2024 12:08 PM Biopsy bone marrow Date/Time: 12/09/2024 10:00 AM Performed by: Kierra Novak APRN Authorized by: Kierra Novak APRN Consent: Consent obtained: Written Consent given by: Patient Risks, benefits, and alternatives were discussed: yes Risks discussed: Bleeding, infection and pain [place] protocol: Procedure explained and questions answered to [...] for port placement. New AML, starting chemotherapy. Geophysical Drafter: Mckinley Lee MD Secondary Point Of Care Technician: Dr. David Holt Rad Dose: 6 mGy [...] was placed supine on the fluoro table. Pmp Certified Project Manager ultrasonography revealed the vein to be compressible [...] with no evidence of complication. Device: 6 [place] port catheter cut to length of 25 cm. COMPARISON: None. FINDINGS: Patent R IJV COMPLICATION: No. Procedure Note Mckinley Lee MD - 12/02/2024 CLINICAL INDICATION: 69M here for port placement. New AML, starting chemotherapy. Geophysical Drafter: Mckinley Lee MD Secondary Point Of Care Technician: Dr. David Holt Rad Dose: 6 mGy [...] patient was placed supine on the fluoro table.Pmp Certified Project Manager ultrasonography revealed the vein to be compressible [...] well with no evidence ofcomplication. Device: 6 [place] port catheter cut to length of 25 [...] MD on 12/02/2024 7:02 AM Isaura Wynn SOA ENGINEER IMG IR PROCEDURES Final Result * (ABNORMAL) WBC Differential (12/01/2024 9:39 AM EDT) Differential Type Automated LAB HEMATOLOGY METHOD 12/01/2024 11:33 AM EDT [facility] Neutrophils % 9 % LAB HEMATOLOGY METHOD 12/01/2024 11:33 AM EDT [facility] Lymphocytes % 84 % LAB HEMATOLOGY METHOD 12/01/2024 11:33 AM EDT [facility] Monocytes % 6 % LAB HEMATOLOGY METHOD 12/01/2024 11:33 AM EDT [facility] Eosinophils % 1 % LAB HEMATOLOGY METHOD 12/01/2024 11:33 AM EDT [facility] Basophils % 0 % LAB HEMATOLOGY METHOD 12/01/2024 11:33 AM EDT [facility] Immature Granulocytes % 0 % LAB HEMATOLOGY METHOD 12/01/2024 11:33 AM EDT [facility] Immature Granulocytes Absolute 0.00 0.00 - 0.06 10*3/uL LAB HEMATOLOGY METHOD 12/01/2024 11:33 AM EDT [facility] Neutrophils Absolute 0.06(LL) 1.60 - 6.10 10*3/uL LAB HEMATOLOGY METHOD 12/01/2024 11:33 AM EDT [facility] Lymphocytes Absolute 0.59(L) 1.20 - 3.90 10*3/uL LAB HEMATOLOGY METHOD 12/01/2024 11:33 AM EDT [facility] Monocytes Absolute 0.04(L) 0.30 - 0.90 10*3/uL LAB HEMATOLOGY METHOD 12/01/2024 11:33 AM EDT [facility] Basophils Absolute 0.00 0.00 - 0.10 10*3/uL LAB HEMATOLOGY METHOD 12/01/2024 11:33 AM EDT [facility] Eosinophils Absolute 0.01 0.00 - 0.50 10*3/uL LAB HEMATOLOGY METHOD 12/01/2024 11:33 AM EDT [facility] Blood Venous blood specimen / Unknown Venipuncture / Unknown 12/01/2024 9:39 AM EDT 12/01/2024 9:56 AM EDT us Virgen Vargas MD LAB BLOOD ORDERABLES Final Re sult [facility] [address] [place] [address] * Protime-INR (11/26/2024 10:51 AM EDT) Prothrombin Time 13.8 12.0 - 14.3 sec LAB COAGULATION METHOD 11/26/2024 11:52 AM EDT [facility] INR 1.1 0.9 - 1.1 LAB COAGULATION METHOD 11/26/2024 11:52 AM EDT [facility] Blood Venous blood specimen / Unknown Venipuncture / Unknown 11/26/2024 10:51 AM EDT 11/26/2024 10:51 AM EDT Narrative [facility] - 11/26/2024 11:52 AM EDT OPTIMAL INR RANGES FOR PATIENT ON ORAL ANTICOAGULANT THERAPY Prevention of venous thromboembolism INR 2.0 to 3.0 In patients with heart disease: Atrial fibrillation INR 2.0 to 3.0 Valvular heart disease INR 2.0 to 3.0 Tissue heart valves INR 2.0 to 3.0 Mechanical prosthetic valves INR 2.5 to 3.5 Prevention of recurrent AR INR 2.5 to 3.5 us Latoya Nunez SOA ENGINEER LAB BLOOD ORDERABLES Final R esult Performing Organization Address City/[facility]/ZIP Co de Phone Number [facility] [address] [place] [address] * BIOPSY BONE MARROW (11/10/2024 2:00 PM [...] - 899 pg/mL 11/05/2024 11:49 AM EDT [facility] Blood Venous blood specimen / Unknown Venipuncture / Unknown 11/05/2024 11:01 AM EDT 11/05/2024 11:21 AM EDT us Elsa Razo SOA ENGINEER LAB BLOOD ORDERABLES Fin al Result Performing Organization Address [facility]/ZIP Co de Phone Number [facility] [address] [place] [address] * ECG Adult (Now - Performed in [...] QTC Interval 439 ms MUSE ECG P [place] 45 degrees MUSE ECG R [place] 15 degrees MUSE ECG T Wave [place] 42 degrees MUSE ECG Diagnosis Normal sinus rhythm MUSE ECG Diagnosis Normal ECG MUSE ECG Diagnosis MUSE ECG Diagnosis Confirmed by Orestes Stone ([id number]) on 11/05/2024 10:19:58 AM MUSE ECG 11/05/2024 10:1 0 AM EDT 11/05/2024 10:19 AM EDT Elsa Razo APRN ECG ORDERABLES Final Re sult MUSE ECG * Urine Cross Panel (11/03/2024 4:05 PM EDT) Extra Reflex urine culture not indicated 11/04/2024 2:02 AM EDT [facility] Comment: Previously prelim verified [...] MD LAB URINE ORDERABLES Final R esult [facility] [address] [place] [address] * (ABNORMAL) Urinalysis with reflex microscopic (Culture NOT Included) (11/03/2024 4:05 PM EDT) Color, Urine Yellow LAB URINALYSIS - AUTOMATED METHOD 11/03/2024 4:23 PM EDT [facility] Clarity, Urine Clear LAB URINALYSIS - AUTOMATED METHOD 11/03/2024 4:23 PM EDT [facility] Spec Globe, Urine 1.018 1.005 - 1.030 LAB URINALYSIS - AUTOMATED METHOD 11/03/2024 4:23 PM EDT [facility] pH, Urine 6.5 5.0 - 8.0 LAB URINALYSIS - AUTOMATED METHOD 11/03/2024 4:23 PM EDT [facility] Protein, Urine 30(A) Negative mg/dL LAB URINALYSIS - AUTOMATED METHOD 11/03/2024 4:23 PM EDT [facility] Glucose, Urine Negative Negative mg/dL LAB URINALYSIS - AUTOMATED METHOD 11/03/2024 4:23 PM EDT [facility] Ketones, Urine Negative Negative mg/dL LAB URINALYSIS - AUTOMATED METHOD 11/03/2024 4:23 PM EDT [facility] Blood, Urine Negative Negative LAB URINALYSIS - AUTOMATED METHOD 11/03/2024 4:23 PM EDT [facility] Bilirubin, Urine Negative Negative LAB URINALYSIS - AUTOMATED METHOD 11/03/2024 4:23 PM EDT [facility] Urobilinogen, Urine 2.0(A) 0.2 to 1.0 mg/dL LAB URINALYSIS - AUTOMATED METHOD 11/03/2024 4:23 PM EDT [facility] Leukocytes, Urine Negative Negative LAB URINALYSIS - AUTOMATED METHOD 11/03/2024 4:23 PM EDT [facility] Nitrite, Urine Negative Negative LAB URINALYSIS - AUTOMATED METHOD 11/03/2024 4:23 PM EDT [facility] Urine Urine specimen obtained by clean catch procedure / Unknown Non-blood Collection / Unknown 11/03/2024 4:05 PM EDT 11/03/2024 4:17 PM EDT us Tati Fam MD LAB URINE ORDERABLES Final R esult [facility] [address] [place] [address] * CT Head wo IV Contrast (11/03/2024 [...] at day 5 11/08/2024 4:01 PM EDT [facility] Blood Structure of antecubital vein / Unknown Venipuncture / Unknown 11/03/2024 3:24 PM EDT 11/03/2024 3:47 PM EDT Narrative [facility] - 11/08/2024 4:01 PM EDT Low blood volume submitted, results may be compromised Tati Fam MD LAB MICROBIOLOGY - GENERAL O RDERABLES Final Result [facility] [address] [place] [address] * XR Chest 1 View (11/03/2024 3:00 [...] for all analytes 11/03/2024 5:17 PM EDT [facility] Swab Nasopharyngeal structure / Unknown Non-blood Collection / Unknown 11/03/2024 2:59 PM EDT 11/03/2024 3:17 PM EDT Narrative [facility] - 11/03/2024 5:17 PM [...] Respiratory PCR Panel is performed using the [employer] ePlex instrument. This test is FDA approved for use with Nasopharyngeal swabs only. This test is used for clinical purposes. It should not be regarded as investigational or for research. The [facility] Clinical Microbiology Laboratory is certified under the Clinical Laboratory Improvement Amendments of 1988 (CLIA-88) as qualified to perform high complexity clinical laboratory testing. Tati Fam MD LAB MICROBIOLOGY - GENERAL O RDERABLES Final Result Performing Organization Address City/[facility]/[place] [address] * Lactic acid, venous (11/03/2024 2:25 PM EDT) [facility] Lactate, Venous, Whole Blood 0.9 0.5 - 2.2 mmol/L LAB HEMATOLOGY METHOD 11/03/2024 2:38 PM EDT [facility] Blood Venous blood specimen / Unknown Venipuncture / Unknown 11/03/2024 2:25 PM EDT 11/03/2024 2:36 PM EDT Result [facility] Tati Fam MD LAB BLOOD ORDERABLES Final R esult Performing Organization Address [facility] [place] [address] * Hepatitis C Antibody w/Reflex to HCV Quant PCR (09/29/2024 12:51 PM EDT) [facility] Hepatitis C Antibody Negative Negative 09/29/2024 2:06 PM EDT [facility] Blood Venous blood specimen / Unknown Venipuncture / Unknown 09/29/2024 12:51 PM EDT 09/29/2024 1:22 PM EDT Result [facility] Virgen Vargas MD LAB BLOOD ORDERABLES Final Re sult Performing Organization Address City/[facility]/ZIP Co de Phone Number [facility] [address] [place] [address] from Last 3 Months or Most Recently Relevant to Health Maintenance Insurance [employer] Care Teams President Of The [place] Relationship Specialty Start Date End Date Zhao Harris MD [address] [place] [address] PCP - General 12/03/20
--- OUTSIDE RECORDS SUMMARY | 2025-01-29 08:21 | XMS_ITS | Encounter Summary ---
Author Organization [facility] Address [address] [place] [address] Care Team Providers Care Team Otr Truck Driver Name Role Phone Zhao Harris MD Primary Care Provider [phone] Encounter Details Date Type Department Care Team ([facility] st Contact Info) Description 11/05/2024 Results Follow-Up Pav CC Head, Neck & Respiratory 800 [facility], 2nd [place] [address] Elsa Razo, ADMIN ASST [address] [place] [address] Social History Tobacco Use Types Packs/Day Years [...] first t manav in the morning (EYE-STRATEGIC ACCOUNTS MANAGER) to steady your nerves or to [...] Appointment P[facility] A Interventional Radiology [address] [place] [address] 02/10/2025 8:30 AM EDT Clinical Support P[facility] Hematology/BMT and Cellular Therapy Program [address] [address] 02/10/2025 9:00 AM EDT Office Visit [facility] Hematology/BMT and Cellular Therapy Program [address] [address] Elaina Boss, ARAM 800 [facility] [address] [place] [address] 02/10/2025 10:30 AM EDT Appointment [facility] 1 [address] [place] [address] 02/11/2025 2:00 PM EDT Appointment [facility] 1 [address] [place] [address] 02/12/2025 2:00 PM EDT Appointment [facility] 1 [address] [place] [address] 02/13/2025 2:00 PM EDT Appointment [facility] 1 [address] [place] [address] 02/14/2025 2:00 PM EDT Appointment [facility] 1 [address] [place] [address] 03/10/2025 8:30 AM EDT Clinical Support PAV CC Hematology/BMT and Cellular Therapy Program [address] [address] 03/10/2025 9:00 AM EDT Office Visit PAV CC Hematology/BMT and Cellular Therapy Program [address] [address] Isaura Wynn, ADMIN ASST 800 [facility] [address] [place] [address] 03/10/2025 11:20 AM EDT Office Visit Pav CC Head, Neck & Respiratory 800 [facility], 2nd [place] [address] Elsa Razo, ADMIN ASST [address] [place] [phone] documented as of this encounter Visit Diagnoses [...] as of this encounter Care Teams Team Otr Truck Driver Relationship Specialty Start Date End Date Zhao Harris MD [address] [place] [address] PCP - General 12/03/20 documented as of this encounter
--- OUTSIDE RECORDS SUMMARY | 2025-01-29 08:21 | XMS_ITS | Encounter Summary ---
Author Organization [employer] ([place], [place], [place], [place]) Address [address] [place] [address] Care Team Providers Care Game Tester Name Role Phone Unavailable Primary Care Provider Unavailabl e Encounter Details Date Type Department Care Team (Late st Contact Info) Description 07/10/2019 Transcribed Document [facility] Family Medicine [address] [place] [address] ProviderBrigida MD [address] [place] [address] Social History Tobacco Use Types [...] - Historical ProviderMD - 07/10/2019 9:45 AM COAL PASSER Event Note Entered On: 07/10/2019 11:04 EST Performed On: 07/10/2019 9:45 EST by Laquita Romero RN Event Note Event Date/Time : 07/10/2019 9:45 EST Event Location : Other: post-op Description of Event : Pt informed that next dose of Morton pain medication due @ 3:45pm today instead of 3:30pm. Laquita Romero RN - 07/10/2019 11:02 EST documented in this encounter Plan of Treatment Not on file documented as of this encounter Visit Diagnoses Not on filedocumented in this encounter
--- OUTSIDE RECORDS SUMMARY | 2025-01-29 08:21 | XMS_ITS | Encounter Summary ---
Author Organization [employer] ([place], [place], [place], [place]) Address [address] [place] [address] Care Team Providers Care Director Paid Media Name Role Phone Unavailable Primary Care Provider Unavailabl e Encounter Details Date Type Department Care Team (Late st Contact Info) Description 07/10/2019 Transcribed Document [facility] Family Medicine [address] [place] [address] ProviderBrigida MD [address] [place] [address] Social History Tobacco Use Types [...] Brigida Vega MD - 07/10/2019 7:04 AM EDUCATION DIRECTOR Patient: HGUO AGUILAR JR Age: 63 years Sex: Male : 1955 Associated Diagnoses: None Author: DWAYNE SHARMA MD-ORT HISTORY AND PHYSICAL DATE: Patient: Hugo Aguilar Date of : 1955 Patient Number: [id number] History of Present Illness Hugo is here [...] Dwayne Burris???Andrea JAMES Electronically signed by Katlin Maldonado Conversion Customer Supply Chain Analyst Eulalio at 11/06/2022 6:14 PM CDT documented in this encounter Plan of Treatment Not on file documented as of this encounter Visit Diagnoses Not on filedocumented in this encounter
--- OUTSIDE RECORDS SUMMARY | 2025-01-29 08:21 | XMS_ITS | Encounter Summary ---
Author Organization [facility] Address [address] [place] [address] Care Team Providers Care Medical Records Tech Name Role Phone Zhao Harris MD Primary Care Provider [phone] Encounter Details Date Type Department Care Team [...] first t manav in the morning (EYE-SENIOR J2EE DEVELOPER) to steady your nerves or to [...] Upcoming Encounters Date Type Department Care Team ([facility] Contact Info) Description 02/02/2025 11:00 AM EDT Appointment P[facility] A Interventional Radiology [address] [place] [address] 02/10/2025 8:30 AM EDT Clinical Support PAV CC Hematology/BMT and Cellular Therapy Program [address] [place] [address] [place] [address] 02/10/2025 9:00 AM EDT Office Visit P[facility] CC Hematology/BMT and Cellular Therapy Program [address] [place] [phone] Elaina Boss, PA 800 [facility] [address] [place] [address] 02/10/2025 10:30 AM EDT Appointment [facility] 1 [address] [place] [address] 02/11/2025 2:00 PM EDT Appointment [facility] 1 [address] [place] [address] 02/12/2025 2:00 PM EDT Appointment [facility] 1 [address] [place] [address] 02/13/2025 2:00 PM EDT Appointment [facility] 1 [address] [place] [address] 02/14/2025 2:00 PM EDT Appointment [facility] 1 [address] [place] [address] 03/10/2025 8:30 AM EDT Clinical Support P[facility] CC Hematology/BMT and Cellular Therapy Program [address] [place] [address] [place] [address] 03/10/2025 9:00 AM EDT Office Visit P[facility] CC Hematology/BMT and Cellular Therapy Program [address] [place] [address] [place] [phone] Isaura Wynn, POTATO CHIP SORTER 800 [facility] [address] [place] [address] 03/10/2025 11:20 AM EDT Office Visit Pav CC Head, Neck & Respiratory 800 [facility], 2nd [place] [address] Elsa Razo, POTATO CHIP SORTER [address] [place] [address] documented as of this encounter Visit Diagnoses [...] as of this encounter Care Teams Medical Records Tech Relationship Specialty Start Date End Date Zhao Harris MD 1210 [facility] [address] [place] [address] PCP - General 12/03/20 documented as of this encounter
--- OUTSIDE RECORDS SUMMARY | 2025-01-29 08:21 | XMS_ITS | Encounter Summary ---
Author Organization [facility] Address [address] [place] [address] Care Team Providers Care Shagger Name Role Phone Zhao Harris MD Primary Care Provider [phone] Reason for Visit * Reason Comments Med Refill Encounter Details Date Type Department Care Team (Late st Contact Info) Description 01/18/2022 Refill [facility] [place] [address] [facility], [address] [place] [address] Regina Hill, [place] [address] [place] [address] Hypertension, unspecified type Social History [...] Appointment [facility] A Interventional Radiology [address] [place] [phone] 02/10/2025 8:30 AM EDT Clinical Support PAV CC Hematology/BMT and Cellular Therapy Program 750 [facility] [address] [place] [address] 02/10/2025 9:00 AM EDT Office Visit P[facility] CC Hematology/BMT and Cellular Therapy Program [address] [place] [phone] Elaina Boss, ARAM [address] [address] 02/10/2025 10:30 AM EDT Appointment [facility] 1 [address] [place] [address] 02/11/2025 2:00 PM EDT Appointment [facility] 1 [address] [place] [address] 02/12/2025 2:00 PM EDT Appointment [facility] 1 [address] [place] [address] 02/13/2025 2:00 PM EDT Appointment [facility] 1 [address] [place] [address] 02/14/2025 2:00 PM EDT Appointment [facility] 1 [address] [place] [address] 03/10/2025 8:30 AM EDT Clinical Support [facility] Hematology/BMT and Cellular Therapy Program [address] [phone] 03/10/2025 9:00 AM EDT Office Visit PAV Hematology/BMT and Cellular Therapy Program [address] [phone] Isaura Wynn, TARGET PROTECTION SPECIALIST 800 [facility] [address] [phone] 03/10/2025 11:20 AM EDT Office Visit Pav Head, Neck & Respiratory 800 [facility], 2nd [place] [address] Elsa Razo, TARGET PROTECTION SPECIALIST [address] [place] [address] documented as of this encounter Visit Diagnoses Diagnosis Hypertension, unspecified type documented in this encounter Additional Health Concerns Infection Onset Date Last Indicated Resolved Time Respiratory Rule-Out 11/03/2024 11/03/2024 025 5:17 PM EDT documented as of this encounter Care Teams Shagger Relationship Specialty Start Date End Date Zhao Harris MD [address] [place] [address] PCP - General 12/03/20 documented as of this encounter
--- OUTSIDE RECORDS SUMMARY | 2025-01-29 08:21 | XMS_ITS | Encounter Summary ---
Author Organization [facility] Address [address] [place] [address] Care Team Providers Care Licensed Optician Name Role Phone Zhao Harris MD Primary Care Provider [phone] Encounter Details Date Type Department Care Team (Late st Contact Info) Description 10/15/2024 Lab Requisition [facility] H Lab [address] [place] [address] Virgen Vargas MD [address] [facility] [address] [place] [phone] Abnormal finding of blood chemistry, unspecified Social [...] Appointment PAV A Interventional Radiology [address] [place] [address] 02/10/2025 8:30 AM EDT Clinical Support P[facility] CC Hematology/BMT and Cellular Therapy Program [address] [address] 02/10/2025 9:00 AM EDT Office Visit P[facility] CC Hematology/BMT and Cellular Therapy Program [address] [address] Elaina Boss, [place] 800 [facility] [address] [place] [phone] 02/10/2025 10:30 AM EDT Appointment [facility]fusion [facility] 1 [address] [place] [address] 02/11/2025 2:00 PM EDT Appointment [facility] 1 [address] [place] [address] 02/12/2025 2:00 PM EDT Appointment [facility] 1 [address] [place] [address] 02/13/2025 2:00 PM EDT Appointment [facility] 1 [address] [place] [address] 02/14/2025 2:00 PM EDT Appointment [facility] 1 [address] [place] [address] 03/10/2025 8:30 AM EDT Clinical Support P[facility] CC Hematology/BMT and Cellular Therapy Program [address] [place] [address] 03/10/2025 9:00 AM EDT Office Visit PAV Hematology/BMT and Cellular Therapy Program [address] [place] [address] Isaura Wynn, ESTRELLA 800 [facility] [address] [phone] 03/10/2025 11:20 AM EDT Office Visit Pav CC Head, Neck & Respiratory [address] [place] [address] Elsa Razo, [employer] [address] [place] [address] documented as of this encounter Procedures Procedure Name Priority Date/Time Associated Diagnosis Comments BONE MARROW EXAM CONSULT Routine 10/15/2024 1:27 PM EDT Abnormal finding of blood chemistry, unspecified documented in this encounter Results * Bone marrow exam consult (10/15/2024 1:27 PM EDT) Case Report Bone Marrow Case: [id number] Authorizing Provider: Virgen Vargas MD Collected: 10/15/2024 1327 Ordering Location: [facility] Lab Received: 10/15/2024 1327 Pathologist: Martha Lopez MD Specimen: Bone Marrow Aspirate, [id number] 10/16/2024 2:02 PM EDT [facility] Final Diagnosis A. 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 10/16/2024 2:02 PM EDT [facility] at 1402 EDT Comment Findings are those of MDS with increased blasts type 2 (MDS-IB-2) in the WHO 5th edition and MDS/AML in the International Consensus Classification. 10/16/2024 2:02 PM EDT [facility] Clinical Information R79.9 - Abnormal finding of blood chemistry, unspecified [ICD-10-CM] 10/16/2024 2:02 PM EDT [facility] [...] Granulocytes % 0 10/16/2024 2:02 PM EDT [facility] Bone Marrow Differential BONE MARROW DIFFERENTIAL: 200 cells Normal Patient Neutrophils 15-50 22 Metamyelocytes 4-19 3 Myelocytes 1-18 11 Promyelocytes 1-8 1 Blasts 0-2 13 Monocytes 0-5 4 Erythroid 16-38 41 Lymphocytes 3-24 4 Eosinophils 0-6 1 Basophils 0-2 0 Plasma cells 0-4 0 Other 10/16/2024 2:02 PM EDT [facility] [...] trabeculae are unremarkable. 10/16/2024 2:02 PM EDT [facility] Flow Cytometry Interpretation Outside flow cytometry showed 17% myeloblasts expressing CD34, CD117, partial CD 38, partial CD7, HLA-DR, CD13 and variable CD33. 10/16/2024 2:02 PM EDT [facility] CYTOGENETICS/MOL ECULAR INTERPRETATION Cytogenetic analysis showed normal male karyotype. No FLT3 duplication or mutation was identified, and no NPM1 mutation was identified. 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 10/16/2024 2:02 PM EDT [facility] Gross Description A. [id number] Received along with a corresponding pathology report from [facility]ology [facility] Cytology Laboratory are 12 slides labeled outside case: [id number] collected on 09/19/2024. 10/16/2024 2:02 PM EDT [facility] Bone Marrow Specimen from bone marrow obtained by aspiration / Unknown 10/15/2024 1:27 PM EDT 10/15/2024 1:27 PM EDT us Virgen Vargas MD LAB PATHOLOGY ORDERABLES Terri lara Result [facility] [address] [place] [address] documented in this encounter Visit Diagnoses Diagnosis [...] as of this encounter Care Teams Licensed Optician Relationship Specialty Start Date End Date Zhao Harris MD [address] [place] [address] PCP - General 12/03/20 documented as of this encounter
--- OUTSIDE RECORDS SUMMARY | 2025-01-29 08:21 | XMS_ITS | Encounter Summary ---
Author Organization [facility] Address [address] [place] [address] Care Team Providers Care Pet Care Worker Name Role Phone Zhao Harris MD Primary Care Provider [phone] Encounter Details Date Type Department Care Team [...] drink first t manav in the morning (EYE-FIGURE CLERK) to steady your nerves or to [...] Encounters Date Type Department Care Team ([facility] Contact Info) Description 02/02/2025 11:00 AM EDT Appointment PAV A Interventional Radiology [address] [place] [address] 02/10/2025 8:30 AM EDT Clinical Support P[facility] CC Hematology/BMT and Cellular Therapy Program [address] [place] [address] [place] [address] 02/10/2025 9:00 AM EDT Office Visit P[facility] CC Hematology/BMT and Cellular Therapy Program [address] [place] [phone] Elaina Boss, [place] 800 [facility] [address] [place] [address] 02/10/2025 10:30 AM EDT Appointment [facility] 1 [address] [place] [address] 02/11/2025 2:00 PM EDT Appointment [facility] 1 [address] [place] [address] 02/12/2025 2:00 PM EDT Appointment [facility] 1 [address] [place] [address] 02/13/2025 2:00 PM EDT Appointment [facility] 1 [address] [place] [address] 02/14/2025 2:00 PM EDT Appointment [facility] 1 [address] [place] [address] 03/10/2025 8:30 AM EDT Clinical Support [facility] CC Hematology/BMT and Cellular Therapy Program [address] [place] [address] [place] [address] 03/10/2025 9:00 AM EDT Office Visit [facility] CC Hematology/BMT and Cellular Therapy Program [address] [place] [address] [address] [place] [phone] Isaura Wynn, SECURITIES AND REAL ESTATE DIRECTOR 800 [facility] [address] [place] [address] 03/10/2025 11:20 AM EDT Office Visit Pav CC Head, Neck & Respiratory 800 [facility], 2nd [place] [address] Elsa Razo, SECURITIES AND REAL ESTATE DIRECTOR [address] [place] [phone] documented as of this encounter Visit Diagnoses [...] documented as of this encounter Care Teams Pet Care Worker Relationship Specialty Start Date End Date Zhao Harris MD 1210 [facility] [address] [place] [address] PCP - General 12/03/20 documented as of this encounter
--- OUTSIDE RECORDS SUMMARY | 2025-01-29 08:21 | XMS_ITS | Encounter Summary ---
Author Organization [employer] ([place], [place], [place], [place]) Address [address] [place] [address] Care Team Providers Care Bag Machine Operator Helper Name Role Phone Unavailable Primary Care Provider Unavailabl e Encounter Details Date Type Department Care Team (Late st Contact Info) Description 07/10/2019 Transcribed Document [facility] Family Medicine [address] [place] [address] ProviderBrigida MD [address] [place] [address] Social History Tobacco Use Types [...] - Brigida ProviderMD - 07/10/2019 7:57 AM SHOT DROPPER [facility] [place] PreOp Summary Primary Physician: SURY SHARMA MD-ORT Finalized Date/Time: 07/21/19 08:13:07 Pt. Name: HUGO AGUILAR JR, D.O.B./Sex: 1955 Male Med Rec #: [id number] Physician: SURY SHARMA MD-ORT Financial #: [id number] Pt. Type: O Room/Bed: Admit/Disch: 07/10/19 05:55:00 - 07/10/19 10:00:00 [place] [facility] [place] Case Times Entry 1 In Preop 07/10/19 06:10:00 Ready for Holding n/a Room Patient Ready for 07/10/19 07:19:00 Surgery Patient Out of Preop 07/10/19 07:35:00 Patient Out of n/a Holding Room Last Modified By: REAL SEVILLA 07/21/19 08:13:06 SJDiane PreOp Case Times Audit 07/21/19 08:13:06 Machine Tack Puller: FAY Modifier: CATLETDD <+> 1 Patient Out of Preop Finalized By: REAL SEVILLA Document Signatures Signed By: REAL SEVILLA 07/21/19 08:13 documented in this encounter Plan of Treatment Not on file documented as of this encounter Visit Diagnoses Not on filedocumented in this encounter
--- OUTSIDE RECORDS SUMMARY | 2025-01-29 08:21 | XMS_ITS | Encounter Summary ---
Author Organization Healthcare Address [address] [place] [address] Care Team Providers Care Light Cleaner Name Role Phone Zhao Harris MD Primary Care Provider [phone] Encounter Details Date Type Department Care Team [...] first t manav in the morning (EYE-CAMERA PERSON) to steady your nerves or to [...] PAV A Interventional Radiology [address] [place] [address] 02/10/2025 8:30 AM EDT Clinical Support P[facility] CC Hematology/BMT and Cellular Therapy Program [address] [place] [address] [place] [address] 02/10/2025 9:00 AM EDT Office Visit [facility] CC Hematology/BMT and Cellular Therapy Program [address] [place] [phone] Elaina Boss, PA 800 [facility] [address] [place] [address] 02/10/2025 10:30 AM EDT Appointment [facility] 1 744 [place] [address] 02/11/2025 2:00 PM EDT Appointment [facility] 1 744 [place] [address] 02/12/2025 2:00 PM EDT Appointment [facility] 1 7[address] [place] [address] 02/13/2025 2:00 PM EDT Appointment [facility] 1 7[address] [place] [address] 02/14/2025 2:00 PM EDT Appointment [facility] 1 4 [place] [address] 03/10/2025 8:30 AM EDT Clinical Support [facility] CC Hematology/BMT and Cellular Therapy Program [address] [place] [address] [place] [address] 03/10/2025 9:00 AM EDT Office Visit P[facility] CC Hematology/BMT and Cellular Therapy Program [address] [place] [address] [place] [phone] Isaura Wynn, APPLICATION SUPPORT MANAGER 800 [facility] [address] [place] [address] 03/10/2025 11:20 AM EDT Office Visit Pav CC Head, Neck & Respiratory 800 [facility], 2nd [place] [address] Elsa Razo, APPLICATION SUPPORT MANAGER 800 [place] [phone] documented as of this encounter Visit Diagnoses [...] documented as of this encounter Care Teams Light Cleaner Relationship Specialty Start Date End Date Zhao Harris MD 1210 [facility] [address] [place] [address] PCP - General 12/03/20 documented as of this encounter
--- OUTSIDE RECORDS SUMMARY | 2025-01-29 08:21 | XMS_ITS | Encounter Summary ---
Author Organization [facility] Address [address] [place] [address] Care Team Providers Care Yarn Spooler Name Role Phone Zhao Harris MD Primary Care Provider [phone] Reason for Visit * Reason Onset Date Comments Distress Screen Follow-up 11/25/2024 Encounter Details Date Type Department Care Team (Late st Contact Info) Description 11/25/2024 Telephone [facility] CC Hematology/BMT and Cellular Therapy Program [address] [place] [address] [place] [address] Michelle Mast Distress Screen Follow-up Social History [...] drink first t manav in the morning (EYE-CASINO DUTY MANAGER) to steady your nerves or to [...] Appointment PAV A Interventional Radiology [address] [place] [address] 02/10/2025 8:30 AM EDT Clinical Support PAV Hematology/BMT and Cellular Therapy Program [address] [place] [address] 02/10/2025 9:00 AM EDT Office Visit PAV Hematology/BMT and Cellular Therapy Program [address] [address] Elaina Boss PA 800 [facility] [address] [place] [address] 02/10/2025 10:30 AM EDT Appointment [facility]fusion [facility] 1 744 [place] [address] 02/11/2025 2:00 PM EDT Appointment [facility] 1 [address] [place] [address] 02/12/2025 2:00 PM EDT Appointment [facility] 1 [address] [place] [address] 02/13/2025 2:00 PM EDT Appointment [facility] 1 [address] [place] [address] 02/14/2025 2:00 PM EDT Appointment [facility] 1 [address] [place] [address] 03/10/2025 8:30 AM EDT Clinical Support P[facility] CC Hematology/BMT and Cellular Therapy Program [address] [address] 03/10/2025 9:00 AM EDT Office Visit P[facility] CC Hematology/BMT and Cellular Therapy Program [address] [address] Isaura Wynn, ART EDUCATOR 800 [facility] [address] [place] [phone] 03/10/2025 11:20 AM EDT Office Visit Pav CC Head, Neck & Respiratory [address] [facility], 2nd [place] [address] Elsa Razo, ART EDUCATOR 800 [place] [phone] documented as of this encounter Visit Diagnoses [...] documented as of this encounter Care Teams Yarn Spooler Relationship Specialty Start Date End Date Zhao Harris MD 1210 [facility] [address] [place] [address] PCP - General 12/03/20 documented as of this encounter
--- OUTSIDE RECORDS SUMMARY | 2025-01-29 08:21 | XMS_ITS | Encounter Summary ---
Author Organization [employer] ([place], [place], [place], [place]) Address [address] [place] [address] Care Team Providers Care Lead Application Architect Name Role Phone Unavailable Primary Care Provider Unavailabl e Encounter Details Date Type Department Care Team (Late st Contact Info) Description 07/10/2019 Transcribed Document [facility] [address] [place] [address] ProviderBrigida MD [address] [place] [address] Social History Tobacco Use Types [...] - Brigida ProviderMD - 07/10/2019 7:57 AM SIMPLEX OPERATOR [facility] Main OR IntraOp Summary Primary Physician: SURY SHARMA MD-ORT Finalized Date/Time: 07/10/19 08:31:14 Pt. Name: HUGO AGUILAR JR, D.O.B./Sex: 1955 Male Med Rec #: [id number] Physician: SURY SHARMA MD-ORT Financial #: [id number] Pt. Type: O Room/Bed: Admit/Disch: 07/10/19 05:55:00 - Institution: [facility] IntraOp Case Attendance Entry 1 Entry 2 Entry 3 Case Attendee SURY SHARMA, TRAVIS PUTNAM, ESTRELLA, Kenrick Guadalupe, SIMPLEX OPERATOR/HEART COORDINATOR MEAGANORGenia MEDIA MARKETING COORDINATOR-ANS Role Performed Surgeon/Proceduralist, MEDIA MARKETING COORDINATOR/Nurse Core Stacker Snowmobile Mechanic, First First Time In 07/10/19 07:38:00 07/10/19 07:38:00 07/10/19 07:38:00 Time Out 07/10/19 08:26:00 07/10/19 08:26:00 07/10/19 08:26:00 Procedure Knee Arthroscopy Knee Arthroscopy Knee Arthroscopy Other Attendee Superficial Wound Closed By: Last Modified By: Martha Goldberg RN Dobson, Melissa, RN Dobson, Melissa, RN 07/10/19 08:31:02 07/10/19 08:31:02 07/10/19 08:31:02 Entry 4 Entry 5 Case Attendee WILMER HECTOR Melissa, RN Role Performed Scrub, First Disaster Director, First Time In 07/10/19 07:38:00 07/10/19 07:38:00 Time Out 07/10/19 08:26:00 07/10/19 08:26:00 Procedure Knee Arthroscopy Knee Arthroscopy Other Attendee Superficial Wound Closed By: Last Modified By: Martha Goldberg RN Dobson, Melissa, RN 07/10/19 08:31:02 07/10/19 08:31:02 [facility] IntraOp Case Attendance Audit 07/10/19 08:31:02 Oyster Cultivator: [id number] Modifier: [id number] <+> Time Out 1 <*> Procedure Knee Arthroscopy 2 <+> Time Out 2 <*> Procedure Knee Arthroscopy 3 <+> Time Out 3 <*> Procedure Knee Arthroscopy 4 <+> Time Out 4 <*> Procedure Knee Arthroscopy 5 <+> Time Out 5 <*> Procedure Knee Arthroscopy 07/10/19 08:12:16 Oyster Cultivator: [id number] Modifier: [id number] <+> 1 Time In <+> 1 Procedure [...] [facility] IntraOp Case Times Audit 07/10/19 08:30:17 Oyster Cultivator: [id number] Modifier: [id number] <+> 1 Out Room Time <+> 1 [...] S[facility] IntraOp Counts Final Audit 07/10/19 08:29:56 Oyster Cultivator: [id number] Modifier: [id number] 1 <*> Procedure Knee Arthroscopy S[facility] IntraOp Delays Entry 1 Delay Reason Other Duration 8 Minute(s) Last Modified By: Martha Goldberg RN 07/10/19 08:06:57 SJE IntraOp Departure from OR Entry 1 Integumentary Assessment Integumentary WDL Assessment WDL Transfer/Handoff Transfer to PACU Phase I Handoff Method Bedside/Face to face Post-op Transport Stretcher/Gurney Via Patient Transport Martha Goldberg RN, Accompanied by TRAVIS PUTNAM, LEGAL BILLER, MEDIA MARKETING COORDINATOR-ANS Last Modified By: Martha Goldberg RN 07/10/19 08:06:58 S[facility] IntraOp Dressing and Packing Entry 1 Type Dressing Location RIGHT KNEE Wound Dressing Item 4x4's, Joseph, Kerlix/Maninder Applied By Kenrick Guadalupe, SIMPLEX OPERATOR/HEART COORDINATOR Last Modified By: Martha Goldberg RN 07/10/19 [...] RN 07/10/19 08:07:26 SJE IntraOp General Case Tank Wagon Driver 1 Case Information OR OR 05 SJE Case Level 1 Room Verified Yes Wound Class I - Clean Specialty SN Orthopedic Anesthesia Type General ASA Class 3 Diagnosis Preop Diagnosis RIGHT KNEE PAIN Postop Same As Preop Yes Postop Diagnosis RIGHT KNEE PAIN Last Modified By: Martha Goldberg RN 07/10/19 08:16:03 S[facility] IntraOp General Case Data Audit 07/10/19 08:16:03 Oyster Cultivator: [id number] Modifier: [id number] <+> 1 ASA Class <+> 1 Anesthesia [...] SJE IntraOp Intraoperative Equipment Audit 07/10/19 08:15:09 Oyster Cultivator: [id number] Modifier: [id number] 1 <*> Photo Yes 1 <*> Video [...] 20ml vial Marcaine 0.5% 30ml vial - [id number] - [id number] Combo Med List Time Administered 07/10/19 07:57:00 07/10/19 07:57:00 Route of LOCAL LOCAL Administration Dose Dose 25 20 Unit of Measure ml ml Volume Administered By Kenrick Guadalupe, SIMPLEX OPERATOR/HEART COORDINATOR Kenrick Guadalupe CST/FREDY Procedure Irrigation Irrigant Volume [...] Positioned By Martha Goldberg RN, TRAVIS PUTNAM, LEGAL BILLER, MEDIA MARKETING COORDINATOR-ANS Position Verified Positioning Yes Verified by Anesthesia [...] Intra Op Sign Out Audit 07/10/19 08:30:31 Oyster Cultivator: [id number] Modifier: [id number] <+> 1 RN Sign Out Signature Date/Time [...] SJE IntraOp Surgical Procedures Audit 07/10/19 08:30:36 Oyster Cultivator: [id number] Modifier: [id number] <+> 1 Stop 07/10/19 08:16:57 Oyster Cultivator: [id number] Modifier: [id number] 1 <*> Procedure Knee Arthroscopy SJE IntraOp Temp Regulation Devices Entry 1 Temp Regulation Temperature Warm blankets Regulation Device Temperature Upper body Regulation Site Temperature TRAVIS PUTNAM APRN, Regulation Device MEDIA MARKETING COORDINATOR-ANS Applied by Last Modified By: Martha Goldberg [...] SJE IntraOp Time Out Audit 07/10/19 08:31:00 Oyster Cultivator: [id number] Modifier: [id number] 1 <*> Beta Jaime Administered N/A 1 <*> Procedure to be Performed Knee Arthroscopy Case Comments <None> Finalized By: Martha Goldberg RN Document Signatures Signed By: Martha Goldberg RN 07/10/19 08:31 Electronically signed by [facility] Conversion Paid Search Marketing Strategist Cerner at 11/06/2022 5:47 PM CDT documented in this encounter Plan of Treatment Not on file documented as of this encounter Visit Diagnoses Not on filedocumented in this encounter
--- OUTSIDE RECORDS SUMMARY | 2025-01-29 08:21 | XMS_ITS | Encounter Summary ---
Author Organization Healthcare Address [address] [place] [address] Care Team Providers Care Textile Screen Printer Name Role Phone Zhao Harris MD Primary Care Provider [phone] Encounter Details Date Type Department Care Team (Late st Contact Info) Description 01/27/2025 Telephone PAV A Interventional Radiology [address] [place] [address] Bandar Cleary, RN Social History Tobacco Use Types Packs/Day [...] first t manav in the morning (EYE-SALES PERFORMANCE ANALYST) to steady your nerves or to [...] PAV A Interventional Radiology [address] [place] [address] 02/10/2025 8:30 AM EDT Clinical Support P[facility] CC Hematology/BMT and Cellular Therapy Program [address] [address] 02/10/2025 9:00 AM EDT Office Visit P[facility] CC Hematology/BMT and Cellular Therapy Program [address] [address] Elaina Boss, ARAM 800 [facility] [address] [place] [address] 02/10/2025 10:30 AM EDT Appointment [facility] Infusion Clinic 1 [address] [place] [address] 02/11/2025 2:00 PM EDT Appointment [facility] Infusion Clinic 1 [address] [place] [address] 02/12/2025 2:00 PM EDT Appointment [facility] Infusion [facility] 1 [address] [place] [address] 02/13/2025 2:00 PM EDT Appointment [facility] Infusion Clinic 1 [address] [place] [address] 02/14/2025 2:00 PM EDT Appointment [facility] Infusion Clinic 1 4 [place] [address] 03/10/2025 8:30 AM EDT Clinical Support PAV Hematology/BMT and Cellular Therapy Program [address] [phone] 03/10/2025 9:00 AM EDT Office Visit PAV CC Hematology/BMT and Cellular Therapy Program 750 [facility], 1st [place] [address] Isaura Wynn, STEAMFITTER 800 [facility] [address]st [place] [address] 03/10/2025 11:20 AM EDT Office Visit Pav CC Head, Neck & Respiratory 800 [facility], 2nd [place] [phone] Elsa Razo, STEAMFITTER [address] [place] [address] documented as of this encounter [...] documented as of this encounter Care Teams Textile Screen Printer Relationship Specialty Start Date End Date Zhao Harris MD [address] [place] [id number] PCP - General 12/03/20 documented as of this encounter
--- OUTSIDE RECORDS SUMMARY | 2025-01-29 08:21 | XMS_ITS | Encounter Summary ---
Author Organization [facility] Address [address] [place] [address] Care Team Providers Care Dynamometer Tester Engine Name Role Phone Zhao Harris MD Primary Care Provider [phone] Reason for Visit * Reason Comments Med Refill Encounter Details Date Type Department Care Team ([facility] Contact Info) Description 02/20/2022 Refill [facility] [place] [address] [facility], [address] [place] [address] Regina Hill, ARAM 800 [place] [address] Social History Tobacco Use Types [...] Upcoming Encounters Date Type Department Care Team ([facility] Contact Info) Description 02/02/2025 11:00 AM EDT Appointment PAV A Interventional Radiology [address] [place] [address] 02/10/2025 8:30 AM EDT Clinical Support P[facility] CC Hematology/BMT and Cellular Therapy Program [address] [place] [address] 02/10/2025 9:00 AM EDT Office Visit P[facility] CC Hematology/BMT and Cellular Therapy Program [address] [place] [address] Elaina Boss, PA 800 [facility] [address] [phone] 02/10/2025 10:30 AM EDT Appointment [facility] Infusion [facility] 1 [address] [place] [address] 02/11/2025 2:00 PM EDT Appointment [facility] Infusion [facility] 1 [address] [place] [address] 02/12/2025 2:00 PM EDT Appointment [facility] 1 [address] [place] [address] 02/13/2025 2:00 PM EDT Appointment [facility] 1 [address] [place] [address] 02/14/2025 2:00 PM EDT Appointment [facility]fusion [facility] 1 [address] [place] [address] 03/10/2025 8:30 AM EDT Clinical Support P[facility] CC Hematology/BMT and Cellular Therapy Program [address] [phone] 03/10/2025 9:00 AM EDT Office Visit PAV CC Hematology/BMT and Cellular Therapy Program [address] [phone] Isaura Wynn, MOUNTAIN GUIDE 800 [facility] [address] [phone] 03/10/2025 11:20 AM EDT Office Visit Pav CC Head, Neck & Respiratory 800 [facility], 2nd [place] [address] Elsa Razo, MOUNTAIN GUIDE 800 [place] [address] documented as of this encounter Visit Diagnoses Not on filedocumented in this encounter Additional Health Concerns Infection Onset Date Last Indicated Resolved Time Respiratory Rule-Out 11/03/2024 11/03/2024 025 5:17 PM EDT documented as of this encounter Care Teams Dynamometer Tester Engine Relationship Specialty Start Date End Date Zhao Harris MD [address] [place] [address] PCP - General 12/03/20 documented as of this encounter
--- OUTSIDE RECORDS SUMMARY | 2025-01-29 08:21 | XMS_ITS | Referral Summary ---
Author Organization [employer] ([place], [place], [place], [place]) Address [address] [place] [address] Care Team Providers Care Shop Steward Name Role Phone Unavailable Primary Care Provider [...]
--- OUTSIDE RECORDS SUMMARY | 2025-01-29 08:21 | XMS_ITS | Encounter Summary ---
Author Organization [facility] Address [address] [place] [address] Care Team Providers Care Rubber Mold Maker Name Role Phone Zhao Harris MD Primary Care Provider [phone] Encounter Details Date Type Department Care Team [...] first t manav in the morning (EYE-COTTON BROKER) to steady your nerves or to [...] Care Team ([facility] Contact Info) Description 02/02/2025 11:00 AM EDT Appointment PAV A Interventional Radiology [address] [place] [address] 02/10/2025 8:30 AM EDT Clinical Support P[facility] CC Hematology/BMT and Cellular Therapy Program [address] [place] [address] [place] [address] 02/10/2025 9:00 AM EDT Office Visit P[facility] CC Hematology/BMT and Cellular Therapy Program [address] [place] [address] Elaina Boss, PA 800 [facility] [address] [place] [address] 02/10/2025 10:30 AM EDT Appointment [facility] 1 [address] [place] [address] 02/11/2025 2:00 PM EDT Appointment [facility] 1 [address] [place] [address] 02/12/2025 2:00 PM EDT Appointment [facility] 1 [address] [place] [address] 02/13/2025 2:00 PM EDT Appointment [facility] 1 [address] [place] [address] 02/14/2025 2:00 PM EDT Appointment [facility]fusion [facility] 1 4 [place] [address] 03/10/2025 8:30 AM EDT Clinical Support P[facility] CC Hematology/BMT and Cellular Therapy Program [address] [place] [address] [place] [address] 03/10/2025 9:00 AM EDT Office Visit P[facility] CC Hematology/BMT and Cellular Therapy Program [address] [place] [address] [place] [phone] Isaura Wynn, MEDICAL OFFICE REPRESENTATIVE 800 [facility] [address] [place] [address] 03/10/2025 11:20 AM EDT Office Visit Pav CC Head, Neck & Respiratory 800 [facility], 2nd [place] [address] Elsa Razo, MEDICAL OFFICE REPRESENTATIVE 800 [place] [phone] documented as of this encounter Visit Diagnoses [...] documented as of this encounter Care Teams Rubber Mold Maker Relationship Specialty Start Date End Date Zhao Harris MD 1210 [facility] [address] [place] [address] PCP - General 12/03/20 documented as of this encounter
--- OUTSIDE RECORDS SUMMARY | 2025-01-29 08:22 | XMS_ITS | Encounter Summary ---
Author Organization [facility] Address [address] 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, unspecified vessel or [...] Appointment PAV A Interventional Radiology [address] [place] [address] 02/10/2025 8:30 AM EDT Clinical Support P[facility] CC Hematology/BMT and Cellular Therapy Program 750 [facility] Flr [place] [address] 02/10/2025 9:00 AM EDT Office Visit PAV Hematology/BMT and Cellular Therapy Program [address] [phone] Elaina Boss, PA 800 [facility] [address] [place] [phone] 02/10/2025 10:30 AM EDT Appointment [facility] 1 [address] [place] [address] 02/11/2025 2:00 PM EDT Appointment [facility] 1 [address] [place] [address] 02/12/2025 2:00 PM EDT Appointment [facility] 1 [address] [place] [address] 02/13/2025 2:00 PM EDT Appointment [facility] 1 [address] [place] [address] 02/14/2025 2:00 PM EDT Appointment [facility] 1 [address] [place] [address] 03/10/2025 8:30 AM EDT Clinical Support [facility] Hematology/BMT and Cellular Therapy Program [address] [phone] 03/10/2025 9:00 AM EDT Office Visit [facility] Hematology/BMT and Cellular Therapy Program [address] [phone] Isaura Wynn, TRANSMISSION OPERATOR 800 [facility] [address] [place] [phone] 03/10/2025 11:20 AM EDT Office Visit Pav Head, Neck & Respiratory 800 [facility], 2nd [place] [phone] Elsa Razo, TRANSMISSION OPERATOR 800 [place] [address] documented as of this encounter Visit Diagnoses Diagnosis 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
--- OUTSIDE RECORDS SUMMARY | 2025-01-29 08:22 | XMS_ITS | Encounter Summary ---
Author Organization [facility] Address [address] [place] [address] Care Team Providers Care Electrical Experimental Mechanic Name Role Phone Zhao Harris MD Primary Care Provider [phone] Encounter Details Date Type Department Care Team ([facility] st Contact Info) Description 01/22/2025 Telephone P[facility] CC Hematology/BMT and Cellular Therapy Program [address] [address] Virgen Vargas MD 800 [facility] [address]st [place] [address] Social History Tobacco Use Types Packs/Day Years [...] drink first t manav in the morning (EYE-CONTRACT DESIGNER) to steady your nerves or to [...] - 01/22/2025 3:50 PM EDT Callback number: [phone] [facility] calling to obtain patient's insurance information documented in this encounter Plan of Treatment Upcoming Encounters Date Type Department Care Team ([facility] Contact Info) Description 02/02/2025 11:00 AM EDT Appointment PAV A Interventional Radiology [address] [place] [address] 02/10/2025 8:30 AM EDT Clinical Support P[facility] Hematology/BMT and Cellular Therapy Program [address] [address] 02/10/2025 9:00 AM EDT Office Visit [facility] Hematology/BMT and Cellular Therapy Program [address] [address] Elaina Boss PA 800 [facility] [address] [place] [address] 02/10/2025 10:30 AM EDT Appointment [facility] 1 [address] [place] [address] 02/11/2025 2:00 PM EDT Appointment [facility] 1 [address] [place] [address] 02/12/2025 2:00 PM EDT Appointment [facility] 1 [address] [place] [address] 02/13/2025 2:00 PM EDT Appointment [facility] 1 [address] [place] [address] 02/14/2025 2:00 PM EDT Appointment [facility] 1 [address] [place] [address] 03/10/2025 8:30 AM EDT Clinical Support [facility] CC Hematology/BMT and Cellular Therapy Program [address] [place] [address] 03/10/2025 9:00 AM EDT Office Visit P[facility] Hematology/BMT and Cellular Therapy Program [address] [address] Isaura Wnyn, REFERENCE TEST CLERK 800 [facility] [address] [address] 03/10/2025 11:20 AM EDT Office Visit Pav CC Head, Neck & Respiratory 800 [facility], 2nd [place] [address] Elsa Razo, REFERENCE TEST CLERK 800 [place] [address] documented as of this encounter Visit Diagnoses [...] as of this encounter Care Teams Electrical Experimental Mechanic Relationship Specialty Start Date End Date Zhao Harris MD [address] [facility] [address] [place] [address] PCP - General 12/03/20 documented as of this encounter
--- NOTE | 2025-01-29 08:23 | PC.NURSE ---
0823-collected labs via venipuncture in right ac with butterfly needle;pt to wait on results.
[2025-01-29 08:30] LABS: Hematocrit 26.6 % (42.0-52.0); Hemoglobin 9.3 g/dL (14.1-18.0); Immature Granulocytes % 0 %; Mean Corpuscular HGB Conc 35.0 g/dL (31.8-35.4); Mean Corpuscular Hemoglobin 28.9 pg (27.0-31.2); Mean Corpuscular Volume 82.6 fl (80-94); Nucleated Red Blood Cells % 0 %; Red Blood Count 3.22 M/mm3 (4.60-6.20); Red Cell Distribution Width-SD 38.7 fL
[2025-01-29 08:34] LABS: White Blood Count 0.4 K/mm3 (4.8-10.8)
[2025-01-29 08:35] LABS: Platelet Count 15 K/mm3 (142-424)
[2025-01-29 08:42] LABS: Alanine Aminotransferase 23 U/L (12-78); Albumin Level 4.3 g/dl (3.5-5.0); Albumin/Globulin Ratio 1.3 (1.1-1.8); Alkaline Phosphatase 97 U/L (38-126); Anion Gap 14.9 mEq/L (5-15); Aspartate Amino Transferase 27 U/L (17-59); Bilirubin,Total 0.8 mg/dl (0.2-1.3); Blood Urea Nitrogen 14 mg/dl (9-20); Calcium 9.5 mg/dl (8.4-10.2); Carbon Dioxide 22 mmol/L (22.0-30.0); Chloride 106 mmol/L (98-107); Creatinine,Serum 0.80 mg/dl (0.66-1.25); Estimated Glomerular Filt Rate 96 ml/min (>60); GFR (African American) 116 ML/MIN (>60); Globulin 3.3 g/dL (1.3-3.2); Glucose 106 mg/dl (74-100); Potassium 3.9 mmoL/L (3.5-5.1); Sodium 139 mmol/L (136-145); Total Protein,Serum 7.6 g/dl (6.3-8.2)
--- NOTE | 2025-01-29 08:47 | PC.NURSE ---
0847-mimi montgomery,catalyst impregnator here to collect type and screen from pt; pt to d/c home and return tomorrow to get platelets.
[2025-01-29 09:11] LABS: Total Cells Counted 50
[2025-01-29 09:14] LABS: RBC Morphology Normal
== END 2025-01-29 09:00 | disposition home or self-care (01) ==
LOC: INF 08:16
PROVIDERS: PCP Family Medicine; Visit Provider Internal Medicine Medical Oncology
DX: R79.9 Abnormal finding of blood chemistry, unspecified (principal)
CPT/HCPCS: 36415; 80053; 85007; 85025; 85027; 86900; 86901

== ENCOUNTER 2025-01-30 13:12 | Outpatient (CLI) | payer MEDICARE, SELFPAY ==
--- OUTSIDE RECORDS SUMMARY | 2024-12-01 08:41 | XMS_ITS | Encounter Summary ---
Author Organization [facility] Address [address] [place] [address] Care Team Providers Care Bartender Name Role Phone Zhao Harris MD Primary Care Provider [phone] Reason for Referral * Consultation (Routine) - Closed Specialty Diagnoses / Procedures Referred By Contact Referred To Contact Interventional Radiology Diagnoses Myelodysplasia (myelodysplastic syndrome) (CMS/HCC) Mckinley Lee MD [address] [place] [address] Phone: tel:[phone] fax:[phone] [facility] Vascular Interventional Radiology [address] [place] [address] Phone: tel: Referral ID Status Reason Start Date Expiration Date V isits Requested Visits Authorized [id number] Closed Specialty Services Required 12/01/2024 06/02/2026 1 1 * Imaging (Routine) - Closed Specialty Diagnoses / Procedures Referred By Justice mcgee Referred To Contact Radiology Diagnoses Myelodysplasia (myelodysplastic syndrome) (CMS/HCC) Procedures IR Port Placement 5+ Years Consult to Interventional Radiology Isaura Wynn APRN [address] [facility] [address] [place] [address] Phone: tel: fax: Referral ID Status Reason Start Date Expiration Date Visits Re quested Visits Authorized [id number] Closed 11/18/2024 05/20/2026 1 1 Reason for Visit * Imaging (Routine) - Closed Specialty Diagnoses / Procedures Referred By Justice mcgee Referred To Contact Radiology Diagnoses Myelodysplasia (myelodysplastic syndrome) (CMS/HCC) Procedures IR Port Placement 5+ Years Consult to Interventional Radiology Isaura Wynn APRN [address] [facility] [address] [place] [address] Phone: tel: fax: Referral ID Status Reason Start Date Expiration Date Visits Re quested Visits Authorized [id number] Closed 11/18/2024 05/20/2026 1 1 Encounter Details Date Type Department Care Team (Latest Contact Info) Description 12/01/2024 8:41 AM EDT - 12/01/2024 11:59 PM EDT Hospital Encounter [facility] A Interventional Radiology [address] [place] [address] Gela Singer Thrombocytopenia (CMS/HCC) (Primary Dx); Myelodysplasia (myelodysplastic syndrome) (CMS/HCC) Discharge Disposition: Home or Self Care [...] drink first t manav in the morning (EYE-MATERIAL CUTTER) to steady your nerves or to get [...] Sign Reading Time Taken Comments Blood Pressure 128/68 12/01/2024 12:45 PM EDT Pulse 58 12/01/2024 12:45 PM EDT Temperature 36.8 C (98.2 F) 12/01/2024 11:35 AM EDT Respiratory Rate 18 12/01/2024 12:45 PM EDT Oxygen Saturation 98% 12/01/2024 12:45 PM EDT Inhaled Oxygen Concentration - - Weight - - Height - - Body Mass Index - - documented in this encounter Functional Status * Calculated C-SSRS Risk Score (Lifetime/Recent) Answer Date of Assessment Author No Risk Indicated 12/01/2024 9:46 AM EDT Gela Singer * Question Answer Date of Assessment Author 1. Wish to be (Past 1 Month) No 025 9:46 AM EDT Gela Singer 2. Non-Specific Active Suici berry Thoughts (Past 1 Month) No 12/01/2024 9:46 AM EDT Saúl Singer R 6. Suicidal Behavior (Lifetime) No 9:46 AM EDT Gela Singer documented as of this encounter Discharge Instructions * Discharge Instructions* Brittny Paris RN - 12/01/2024 12:03 PM EDT *Interventional Radiology* (IR) Questions/Concerns & Appointments If there are questions or concerns after discharge please call: Vascular & Interventional Radiology Clinic at [phone] Sunday - Sunday 8:00 AM to 4:30 PM After hours, weekends, and holidays please call [phone] and ask for the Interventional Radiology provider/Resident on-call For Emergencies please go to the nearest Emergency Room or dial 911. Intervention Radiology Appointments: If you need to reschedule a procedure, please call our Schedulers at [phone], option [phone]. If you need to schedule or reschedule a clinic appointment, please call [phone]. [facility] Vascular and Interventional Radiology Clinic [facility] [address] [place] [address] documented in this encounter Medications at Time of Discharge acyclovir (Zovirax) 800 MG tabletIndications :Myelodysplasia (myelodysplastic syndrome) (CMS/HCC) Take 1 tablet (800 mg) by mouth in the morning and 1 tablet (800 mg) before bedtime. 60 tablet 3 10/14/2024 bisoprolol (Zebeta) 5 MG tabletIndications :Coronary artery disease involving [place] heart with angina pectoris, unspecified vessel or lesion type (CMS/HCC),Hyperte nsion, unspecified type Take 1 tablet (5 mg) by mouth daily. 90 tablet 3 09/11/2024 HYDROcodone-aceta minophen (Eleva) 5-325 MG tablet Take 1 tablet by mouth every 6 hours as needed. 11/07/2024 hydrocortisone 2.5 % cream Apply 1 Application topically as needed for rash. 20 g 12/09/2024 levoFLOXacin (Levaquin) 500 MG tabletIndications :Myelodysplasia (myelodysplastic syndrome) (CMS/HCC) Take 1 tablet (500 mg) by mouth daily. 30 tablet 3 10/14/2024 nitroglycerin (Nitrostat) 0.4 MG SL tabletIndications :Coronary artery disease involving [place] heart with angina pectoris, [...] needed for constipation. 30 tablet 3 10/23/2024 amLODIPine (Norvasc) 2.5 MG tabletIndications :Coronary artery disease involving [place] heart with angina pectoris, [...] as of this encounter Miscellaneous Notes * Nj Palencia - Brittny Paris RN - 12/01/2024 12:03 PM EDT Images from the original note were not included. 1459 Port-A-Cath What you should know A Port-A-Cath is small device that is placed just under the skin near your collar bone. It is made up of 2 connected parts: ?? The port -- a small pocket with a rubber top that needles can go into. ?? The catheter -- a plastic tube that is threaded through a vein near your heart. A Port-A-Cath will help you have fewer needle sticks in your veins when you get treatments or have blood taken for tests. Your port may be used for: ?? Chemotherapy ?? Blood transfusions ?? IV fluids and medicines ?? Blood samples A PowerPort is a special kind of Port-A-Cath that is used when you need to have dyes put into your blood for tests. You will have an I.D. card that describes the type of Port-A-Cath you have. If you go to the emergency room or see a different doctor for any reason, make sure the doctor knows you have a PowerPort. Wound care after your port is placed ?? You may remove your bandage and take a shower 48 hours after your surgery. ?? When you shower, just let the water run over your incision. Don?t scrub the wound. Pat dry. ?? Don't take a tub bath or swim for 14 days after your surgery. ?? Leave the paper strips in place over the incision until they fall off on their own. If they havenot fallen off after 14 days, you may pull them off. ?? When your incision is healed, you may swim and take baths if there is no needle in your port. Helpful tips ?? Any pain and swelling should go away within a week, but your shoulder may feel stiff and sore longer. It might also hurt the first time a needle is put into the port. The more the port is used, the less it will hurt. Your doctor or nurse may give you a special numbing medicine for your skin before you use your port. ?? Ice: You may use ice for the first 24 to 48 hours after the port is put in to lessen swelling, pain, and redness. Put crushed ice in a plastic bag and cover it with a towel. Place this on the surgery area for 15 to 20 minutes every hour as long as you need it. Don?t sleep on the ice pack or leave it on longer than 20 minutes at a time because you can get frostbite. Never let the ice pack touch your skin directly. Always have a towel or a t-shirt between the pack and your skin. ?? Heat: After the first 24 to 48 hours, you may use heat for 15 to 20 minutes every hour as long as you need it to lessen pain or swelling. You may use warm compresses, a heating pad, or a hot waterbottle. ?? A warm moist compress is a small towel that is damp with hot water and placed in a plastic bag. Wrap a towel around the plastic bag to prevent [place]. Do not let the plastic bag touch your skin directly. ?? If you use a heating pad, keep it turned on low. Caring for your Port-A-Cath A trained health care provider with flush the port. Never try to use or flush the port yourself. ?? How often? The port will be flushed every 4 weeks. Call the [facility] Hematology Program Clinic if this is not set up. ?? What is used to flush it? It will be flushed with NS and Heparin flush. ?? Where will this happen? Either home health will come to you or you will go to the Infusion Center or the [facility]. Here is some contact information about your port. ?? For port care: ?? For port supplies: Call your doctor if you have any of the following ?? Temperature of 101.5??F or higher for over 24 hours (unless you are told differently) ?? Stitches are swollen, red, or have pus coming out of them ?? Red streak from the port up your chest ?? Face, neck or arm becomes swollen ?? Area around the port is red, swollen, painful or feels warm ?? Pain in your shoulder, arms, and neck that does not go away or gets worse ?? Hard to get medicines to go into the port or the medicine has started going in much slower ?? You have questions or concerns about your port * Post-Procedure Note - Иван Hernandez MD - 12/01/2024 10:30 AM EDT Vascular and Interventional Radiology Brief Postprocedure Note Attending: Dr. Lee Loading And Unloading Supervisor: Dr. Hernandez Pre-operative Diagnosis: AML, need for chemotherapy Post-operative Diagnosis: Same as pre-op Type of Anesthesia: Conscious Sedation Description of Findings: Adequate positioning post-procedurally Technical/Surgical Procedures Used: 6 Fr sheath cut to 25cm Specimen Obtained: N/A Complications: None Estimated Blood Loss: minimal Procedure Events Event Event Time Sedation Start 12/01/2024 11:15 AM Sedation Stop 12/01/2024 11:41 AM See detailed result report with images in PACS. The patient tolerated the procedure well without incident or complication and is in stable condition. * Pre-Procedure Note - Иван Hernandez MD - 12/01/2024 10:30 AM EDT Images from the original note were not included. INTERVENTIONAL RADIOLOGY SEDATION PRE-PROCEDURAL ASSESSMENT AND SEDATION PLAN OF CARE Indication for procedure: 69M here for port placement. New AML, starting chemotherapy. Planned Procedure: Port placement. Relevant past medical history: HTN and myeldysplastic syndrome/acute myeloid leukemia. 1 cycle azacitidine/venetoclax 10/20/24. Recurrent pancytopenia. Previous problems with surgery, anesthesia or sedation: No Previous family history or problems with anesthesia or sedation: No Relevant Labs: Lab Results Component Value Date CREATININE 0.97 11/24/2024 EGFR 84.5 11/24/2024 INR 1.1 11/26/2024 Planned Sedation/Anesthesia: Moderate Airway assessment: normal Mallampati Score: III (soft and hard palate and base of uvula visible) ASA: ASA 3 - Patient with moderate systemic disease with functional limitations Directed physical examination: There were no vitals filed for this visit. GENERAL: Awake, alert, NAD HEENT: NCAT NECK: No appreciable JVD CARDIAC: Regular rate, regular rhythm, normal S1/S2, no m/r/g, 2+ radial pulses bilaterally PULM: CTAB without increased work of breathing ABD: Soft, NT, ND EXT: Warm and well perfused, no LE edema SKIN: No rashes or lesions NEURO: A&Ox4, moving all extremities spontaneously Benefits, risks and alternatives of procedure and planned sedation have been discussed with the patient and/or their sales representative adding machines. All questions answered and they agree to proceed. * Nursing Note - Gela Singer - 12/01/2024 10:30 AM EDT Discharge instructions given to patient and family, stated understanding of after care and s/s infection, pt given numbers to call in case of emergency, no further concerns voiced * Interval H&P Note - Иван Hernandez MD - 12/01/2024 10:30 AM EDT H&P reviewed and patient examined. There are no changes to the H&P. Source Note - Latoya Nunez APRN - 11/26/2024 10:00 AM EDT Images from [...] daily., Disp: 90 tablet, Rfl: 3 HYDROcodone-acetaminophen (Eleva) 5-325 MG tablet, Take 1 tablet by [...] on 11/26/2024), Disp: 30 tablet, Rfl: 3 documented in this encounter Plan of Treatment Upcoming Encounters Date Type Department Care Team ([facility] st Contact Info) Description 02/02/2025 9:30 AM EDT Appointment [facility] A Interventional Radiology [address] [place] [address] 02/10/2025 8:30 AM EDT Clinical Support [facility] Hematology/BMT and Cellular Therapy Program [address] [address] 02/10/2025 9:00 AM EDT Office Visit [facility] Hematology/BMT and Cellular Therapy Program [address] [place] [phone] Elaina Boss, ARAM [address] [facility] [address] [address] 02/10/2025 10:30 AM EDT Appointment [facility] Infusion Clinic [address] [place] [address] 02/11/2025 2:00 PM EDT Appointment [facility] Infusion Clinic 1 [address] [place] [address] 02/12/2025 2:00 PM EDT Appointment [facility] Infusion Clinic 1 [address] [place] [address] 02/13/2025 2:00 PM EDT Appointment [facility] Infusion [facility] 1 [address] [place] [address] 02/14/2025 2:00 PM EDT Appointment [facility] Infusion Clinic 1 [address] [place] [address] 03/10/2025 8:30 AM EDT Clinical Support [facility] Hematology/BMT and Cellular Therapy Program [address] [facility] [place] [address] 03/10/2025 9:00 AM EDT Office Visit [facility] Hematology/BMT and Cellular Therapy Program [address] [facility] [place] [address] Isaura Wynn, WELDER HELPER [address] [facility] [address] [place] [phone] 03/10/2025 11:20 AM EDT Office Visit Pav Head, Neck & Respiratory [address] [facility], [address] [place] [address] Elsa Razo, WELDER HELPER [address] [place] [address] Scheduled Referrals Name Type Priority Associated Diagnoses Order Schedule Discharge Ambulatory referral to [facility] Clinic Outpatient Referral Routine Myelodysplasia (myelodysplastic syndrome) (CMS/HCC) Expected: 12/08/2024, Expires: 06/03/2026 documented as of this encounter Procedures Procedure Name Priority Date/Time Associated Diagnosis Comments IR PORT PLACEMENT 5+ YEARS Routine 12/01/2024 11:43 AM EDT Myelodysplasia (myelodysplastic syndrome) (CMS/HCC) TRANSFUSE PLATELETS Timed 12/01/2024 1 1:00 AM EDT EXCEPTION TO STANDARD PRACTICE, PATHOLOGIST INTERPRETATION Routine 12/01/2024 10:37 AM EDT Thrombocytopenia (CMS/HCC) WBC DIFFERENTIAL Routine 12/01/2024 9:39 AM EDT CBC W/O DIFFERENTIAL STAT 12/01/2024 9:39 AM EDT PREPARE PLATELETS Timed 12/01/2024 8:5 2 AM EDT documented in this encounter Results * IR Port Placement 5+ Years (12/01/2024 [...] for port placement. New AML, starting chemotherapy. Boat Hop: Mckinley Lee MD [employer] Assistant Football Coach: Dr. David Holt Rad Dose: 6 mGy [...] was placed supine on the fluoro table. Pulp Drier Firer ultrasonography revealed the vein to be compressible [...] with no evidence of complication. Device: 6 Kyr[place] port catheter cut to length of 25 cm. COMPARISON: None. FINDINGS: Patent R IJV COMPLICATION: No. Procedure Note Mckinley Lee MD - 12/02/2024 CLINICAL INDICATION: 69M here for port placement. New AML, starting chemotherapy. Boat Hop: Mckinley Lee MD [employer] Assistant Football Coach: Dr. David Holt Rad Dose: 6 mGy [...] patient was placed supine on the fluoro table.Pulp Drier Firer ultrasonography revealed the vein to be compressible [...] well with no evidence ofcomplication. Device: 6 Kyr[place]z port catheter cut to length of 25 [...] MD on 12/02/2024 7:02 AM Isaura Wynn WELDER HELPER IMG IR PROCEDURES Final Result * Transfuse platelets, Irradiated (12/01/2024 11:39 AM EDT) Mckinley Lee MD BLOOD TRANSFUSION ORDERABLES Final Result * Transfuse platelets: 1 Units, Irradiated (12/01/2024 11:39 AM EDT) Mckinley Lee MD BLOOD TRANSFUSION ORDERABLES Final Result * Exception to Standard Practice, Pathologist Interpretation (12/01/2024 10:37 AM EDT) Clinical Diagnosis, Exception to Standard Practice Thrombocytopenia 12/02/2024 12:00 PM EDT BLOOD BANK Interpretation , Exception to Standard Practice Your patient, who is RhD-negative, required transfusion of one unit of apheresis platelet on 12/01/2024. Considering the available inventory and the necessity [...] isoimmunization may be considered, if clinically indicated. A resident was involved in the service. I attest I examined the relevant preparations for the specimens and confirmed the diagnosis or interpretation. 12/02/2024 12:00 PM EDT BLOOD BANK Pathologist Signature, Exception to Standard Practice Reviewed by: Sanjuanita Swann MD 12/02/2024 12:00 PM EDT BLOOD BANK LAB CP ASR DISCLAIMER Yes 12/02/2024 12:00 PM EDT BLOOD BANK Blood Bank Lab Only 12/01/2024 10:37 AM EDT 12/02/2024 8:50 AM EDT us Juwan Horton MD LAB BLOOD BANK TEST ORDERAB LES Final Result BLOOD BANK [address] [place] [address], * (ABNORMAL) WBC Differential (12/01/2024 9:39 AM EDT) Differential Type Automated LAB HEMATOLOGY METHOD 12/01/2024 11:33 AM EDT [facility] Neutrophils % 9 % LAB HEMATOLOGY METHOD 12/01/2024 11:33 AM EDT [facility] Lymphocytes % 84 % LAB HEMATOLOGY METHOD 12/01/2024 11:33 AM EDT [facility] Monocytes % 6 % LAB HEMATOLOGY METHOD 12/01/2024 11:33 AM EDT [facility] Eosinophils % 1 % LAB HEMATOLOGY METHOD 12/01/2024 11:33 AM EDT [facility] Basophils % 0 % LAB HEMATOLOGY METHOD 12/01/2024 11:33 AM EDT [facility] Immature Granulocytes % 0 % LAB HEMATOLOGY METHOD 12/01/2024 11:33 AM EDT [facility] Immature Granulocytes Absolute 0.00 0.00 - 0.06 10*3/uL LAB HEMATOLOGY METHOD 12/01/2024 11:33 AM EDT [facility] Neutrophils Absolute 0.06(LL) 1.60 - 6.10 10*3/uL LAB HEMATOLOGY METHOD 12/01/2024 11:33 AM EDT [facility] Lymphocytes Absolute 0.59(L) 1.20 - 3.90 10*3/uL LAB HEMATOLOGY METHOD 12/01/2024 11:33 AM EDT [facility] Monocytes Absolute 0.04(L) 0.30 - 0.90 10*3/uL LAB HEMATOLOGY METHOD 12/01/2024 11:33 AM EDT [facility] Basophils Absolute 0.00 0.00 - 0.10 10*3/uL LAB HEMATOLOGY METHOD 12/01/2024 11:33 AM EDT [facility] Eosinophils Absolute 0.01 0.00 - 0.50 10*3/uL LAB HEMATOLOGY METHOD 12/01/2024 11:33 AM EDT [facility] Blood Venous blood specimen / Unknown Venipuncture / Unknown 12/01/2024 9:39 AM EDT 12/01/2024 9:56 AM EDT us Virgen Vargas MD LAB BLOOD ORDERABLES Final Re sult [facility] [address] [place] [address] * (ABNORMAL) CBC (12/01/2024 9:39 AM EDT) WBC Count 0.64(LL) 3.70 - 10.30 10*3/uL LAB HEMATOLOGY METHOD 12/01/2024 4:21 PM EDT [facility] RBC Count 2.29(L) 4.60 - 6.10 10*6/uL LAB HEMATOLOGY METHOD 12/01/2024 4:21 PM EDT [facility] HGB 7.6(L) 13.7 - 17.5 g/dL LAB HEMATOLOGY METHOD 12/01/2024 4:21 PM EDT [facility] HCT 20.9(L) 40.0 - 51.0 % LAB HEMATOLOGY METHOD 12/01/2024 4:21 PM EDT [facility] Platelet Count 14(LL) 155 - 369 10*3/uL LAB HEMATOLOGY METHOD 12/01/2024 4:21 PM EDT [facility] MCV 91 79 - 98 fL LAB HEMATOLOGY METHOD 12/01/2024 4:21 PM EDT [facility] MCH 33.2(H) 26.0 - 32.0 pg LAB HEMATOLOGY METHOD 12/01/2024 4:21 PM EDT [facility] MCHC 36.4(H) 30.7 - 35.5 g/dL LAB HEMATOLOGY METHOD 12/01/2024 4:21 PM EDT [facility] RDW 17.7(H) 11.5 - 14.5 % LAB HEMATOLOGY METHOD 12/01/2024 4:21 PM EDT [facility] MPV LAB HEMATOLOGY METHOD 12/01/2024 4:21 PM EDT [facility] Comment:Not Measured nRBC 0.0 <=0.0 per 100 WBCs LAB HEMATOLOGY METHOD 12/01/2024 4:21 PM EDT [facility] Blood Venous blood specimen / Unknown Venipuncture / Unknown 12/01/2024 9:39 AM EDT 12/01/2024 9:56 AM EDT Mckinley Lee MD LAB BLOOD ORDERABLES Final R esult Performing Organization Address City/[facility]/ZIP Co de Phone Number [facility] [address] [place] [address] * Prepare Leukocyte Reduced Platelets: 1 Units, Irradiated (12/01/2024 8:52 AM EDT) [facility] Product Code [id number] BLOO D BANK Dispense Status Transfused BLOOD BANK Blood Expiration Date [id number] BLOOD BANK Unit Number [id number] B LOOD BANK Product Blood Type 6200 BLOOD BANK Blood Type A+ BLOOD BANK Blood Venous blood specimen / Unknown Mckinley Lee MD BLOOD BANK PRODUCT ORDERABLE S Final Result Performing Organization Address City/[facility] Co de Phone Number BLOOD BANK [address] documented in this encounter Visit Diagnoses Diagnosis Thrombocytopenia (CMS/HCC)- Primary Unspecified thrombocytopenia Myelodysplasia (myelodysplastic syndrome) (CMS/HCC) Myelodysplastic syndrome, unspecified documented in this encounter Administered Medications Inactive Administered Medications - up to 3 most recent administrations Medication Order MAR Action Action Date Dose Rate Site ceFAZolin (Ancef) injection 2 g 2 g, Intravenous, Once, 1 dose, On Sun12/01/24 at 0945, Routine, Holding - Preprocedure Given 12/01/2024 9:56 AM EDT 2 g Right Antecubital ceFAZolin (Ancef) injection As needed, Starting on Sun12/01/24 at 1130, Until Sun12/01/24 at 1130, Routine, Intraprocedure Given 12/01/2024 11:30 AM EDT 1 g Other fentaNYL (Sublimaze) injection Intravenous, As needed, Starting on Sun12/01/24 at 1115, Until Sun12/01/24 at 1115, Routine, Intraprocedure Given 12/01/2024 11:15 AM EDT 50 mcg heparin flush (porcine) 100 UNIT/ML injection As needed, Starting on Sun12/01/24 at 1135, Until Sun12/01/24 at 1135, Routine, Intraprocedure Given 12/01/2024 11:35 AM EDT 5 mL lidocaine (Xylocaine) 1 % injection Intradermal, As needed, Starting on Sun12/01/24 at 1116, Until Sun12/01/24 at 1116, Routine, Intraprocedure Given 12/01/2024 11:16 AM EDT 10 mL Right Neck lidocaine-EPINEPHrine (Xylocaine W/EPI) 1 %-1:333029 injection As needed, Starting on Sun12/01/24 at 1129, Until Sun12/01/24 at 1129, Routine, Intraprocedure Given 12/01/2024 11:29 AM EDT 10 mL Right Chest midazolam (Versed) injection Intravenous, As needed, Starting on Sun12/01/24 at 1115, Until Sun12/01/24 at 1115, Routine, Intraprocedure Given 12/01/2024 11:15 AM EDT 1 mg documented in this encounter Additional Health Concerns Assessment Noted Time PHQ-9 Depression Total Score: 0 09/11/19 9:15 AM EST A fall risk assessment has been complete d for the patient 11/26/2024 9:55 AM EDT A Body Mass Index follow-up plan has been documented for the patient 12/01/2024 12:34 PM EDT documented as of this encounter Care Teams Bartender Relationship Specialty Start Date End Date Zhao Harris MD [address] [place] [address] [place] [address] PCP - General 12/03/20 documented as of this encounter
--- OUTSIDE RECORDS SUMMARY | 2024-12-09 08:30 | XMS_ITS | Encounter Summary ---
Author Organization [facility] Address [address] [place] [address] Care Team Providers Care Money Order Clerk Name Role Phone Zhao Harris MD Primary Care Provider [phone] Reason for Visit * Reason Comments Labs Nurse Visit Encounter Details Date Type Department Care Team ([facility] Contact Info) Description 12/09/2024 8:30 AM EDT Clinical Support PAV CC Hematology/BMT and Cellular Therapy Program [address] [place] [address] [place] [address] Social History Tobacco Use Types Packs/Day Years [...] drink first t manav in the morning (EYE-CIVIL ATTORNEY) to steady your nerves or to get [...] Upcoming Encounters Date Type Department Care Team ([facility] st Contact Info) Description 02/02/2025 9:30 AM EDT Appointment PAV A Interventional Radiology [address] [place] [address] 02/10/2025 8:30 AM EDT Clinical Support PAV CC Hematology/BMT and Cellular Therapy Program [address] [address] 02/10/2025 9:00 AM EDT Office Visit PAV Hematology/BMT and Cellular Therapy Program [address] [address] Elaina Boss, PA 800 [facility] [address] [place] [address] 02/10/2025 10:30 AM EDT Appointment P[facility] Infusion Clinic 1 744 [place] [address] 02/11/2025 2:00 PM EDT Appointment P[facility] Infusion Clinic 1 [address] [place] [address] 02/12/2025 2:00 PM EDT Appointment P[facility] Infusion [facility] 1 [address] [place] [address] 02/13/2025 2:00 PM EDT Appointment P[facility] Infusion [facility] 1 [address] [place] [address] 02/14/2025 2:00 PM EDT Appointment [facility] Infusion [facility] 1 [address] [place] [address] 03/10/2025 8:30 AM EDT Clinical Support PAV CC Hematology/BMT and Cellular Therapy Program [address] [place] [address] 03/10/2025 9:00 AM EDT Office Visit PAV CC Hematology/BMT and Cellular Therapy Program 750 [facility] [place] [place] [phone] Isaura Wynn, LODGE SALES ASSOCIATE 800 [facility] [address]st [place] [address] 03/10/2025 11:20 AM EDT Office Visit Pav CC Head, Neck & Respiratory 800 [facility], 2nd [place] [address] Elsa Razo, LODGE SALES ASSOCIATE 800 [place] [address] documented as of this encounter Visit Diagnoses [...] documented as of this encounter Care Teams Money Order Clerk Relationship Specialty Start Date End Date Zhao Harris MD [address] [place] [address] PCP - General 12/03/20 documented as of this encounter
--- OUTSIDE RECORDS SUMMARY | 2024-12-09 09:00 | XMS_ITS | Encounter Summary ---
Author Organization [facility] Address [address] [place] [address] Care Team Providers Care Dietary Server Name Role Phone Zhao Harris MD Primary Care Provider + [phone] Reason for Visit * Reason Comments Procedure * Genetic Testing (Routine) - Authorized Specialty Diagnoses / Procedures Referred By Justice mcgee Referred To Contact Lab Diagnoses Myelodysplasia (myelodysplastic syndrome) (CMS/HCC) Procedures Leukemia/Lymphoma - Immunophenotyping by Flow Cytometry Virgen Vargas MD [address] [facility] [address] [address] Phone: tel: fax: Referral ID Status Reason Start Date Expiration Date V isits Requested Visits Authorized [id number] Authorized 11/18/2024 05/20/2026 1 1 Encounter Details Date Type Department Care Team (Latest Contact Info) Description 12/09/2024 9:00 AM EDT Procedure Visit [facility] Hematology/BMT and Cellular Therapy Program [address] [place] [address] Kierra Novak APRN [facility] [address] [phone] Myelodysplasia (myelodysplastic syndrome) (CMS/HCC) Social [...] drink first t manav in the morning (EYE-KARDEX CLERK) to steady your nerves or to [...] yes Risks discussed: Bleeding, infection and pain Raymond protocol: Procedure explained and questions answered to [...] Upcoming Encounters Date Type Department Care Team ([facility] Contact Info) Description 02/02/2025 9:30 AM EDT Appointment [facility] Inter[facility]iology [address] [place] [address] 02/10/2025 8:30 AM EDT Clinical Support [facility] Hematology/BMT and Cellular Therapy Program [address] [phone] 02/10/2025 9:00 AM EDT Office Visit [facility] Hematology/BMT and Cellular Therapy Program [address] [phone] Elaina Boss PA [address] [facility] [address] [place] [phone] 02/10/2025 10:30 AM EDT Appointment [facility] [address] [place] [address] 02/11/2025 2:00 PM EDT Appointment [facility] 1 [address] [place] [address] 02/12/2025 2:00 PM EDT Appointment [facility] [address] [place] [address] 02/13/2025 2:00 PM EDT Appointment [facility] [address] [place] [address] 02/14/2025 2:00 PM EDT Appointment [facility] [address] [place] [address] 03/10/2025 8:30 AM EDT Clinical Support [facility] Hematology/BMT and Cellular Therapy Program [address] [place] [phone] 03/10/2025 9:00 AM EDT Office Visit [facility] Hematology/BMT and Cellular Therapy Program [address] [address] Isaura Wynn, MEDICAL GENETICIST [address] [facility] [address] [place] [phone] 03/10/2025 11:20 AM EDT Office Visit [facility] Head, Neck & Respiratory 800 [facility], [address]nd [place] [address] Elsa Razo, MEDICAL GENETICIST [address] [place] [address] documented as of this encounter Procedures Procedure Name Priority Date/Time Associated Diagnosis Comments CYTOGENETICS TESTING, ONCOLOGY Routine 12/09/2024 10:15 AM EDT Myelodysplasia (myelodysplastic syndrome) ([facility]/HCC) CHROMOSOME KARYOTYPE, ONCOLOGY Routine 12/09/2024 10:15 AM EDT Myelodysplasia (myelodysplastic syndrome) ([facility]/HCC) LEUKEMIA/LYMPHOMA - IMMUNOPHENOTYPING BY FLOW CYTOMETRY Routine [...] Type Bone Marrow 12/16/2024 5:59 PM EDT [facility] Clinical Indication Acute Myeloid Leukemia 12/16/2024 5:59 PM EDT [facility] Specimen Adequacy Adequate 025 5:59 PM EDT [facility] Chromosome Analysis Result Giemsa-banded metaphase cells from unstimulated bone marrow cultures showed the following chromosome pattern: 43~45,X,-Y,t(4;1 4)(q21;q32),add( 5)(q13),add(16)( q11.2),-17,add(2 0)(q11.2)[cp13]/ 46,XY[7] 12/16/2024 5:59 PM EDT [facility] Interpretation Abnormal male chromosome analysis. 65% [...] were observed on this patient's previous specimen [id number] and indicate persistent disease. Clinical correlation is recommended. Note: Per [employer] ([employer]) requirement additional karyotypes were performed and charged due to the presence of clonal abnormalities. # cells counted = 20 # cells analyzed = 20 # cells karyotyped = 3 Band resolution: 400 12/16/2024 5:59 PM EDT [facility] Pathologist Signature Reviewed by: Mesfin Rae 12/16/2024 5:59 PM EDT [facility] Bone Marrow Non-blood Collection / Unknown 12/09/2024 10:15 AM EDT 12/09/2024 12:48 PM EDT us Virgen Vargas MD LAB CYTOGENETICS ORDERABLES F inal Result [facility] [address] [place] [address] * Leukemia/Lymphoma - Immunophenotyping by Flow Cytometry (12/09/2024 10:15 AM EDT) Clinical Indication AML 12/10/2024 8:51 AM T [facility] Flow Cytometry Interpretation APPROXIMATELY 23% POPULATION OF CD34 POSITIVE MYELOID BLASTS EXPRESSING CD34, CD117, CD13, CD33, HLA-DR, PARTIAL CD7, VARIABLE CD123, PARTIAL CD38, AND MODERATE CD45, SEE COMMENT, BONE MARROW ASPIRATE. 12/10/2024 8:51 AM EDT [facility] Comments Specimen viability is 86.0%. [...] surface light chains, CD123 12/10/2024 8:51 AM T [facility] Disclaimer This test was developed and its performance characteristics determined by the Immuno-Molecular Pathology Laboratory at the [facility]. It has not been cleared [...] on the report. 12/10/2024 8:51 AM EDT [facility] Pathologist Signature Reviewed by: Gerry Jensen MD 12/10/2024 8:51 AM EDT [facility] MRD Indicated Test Not Indicated 8:51 AM EDT [facility] Bone Marrow Specimen from bone marrow obtained by aspiration / Unknown Non-blood Collection / Unknown 12/09/2024 10:15 AM EDT 12/09/2024 11:28 AM EDT us Virgen Vargas MD LAB FLOW CYTOMETRY ORDERABLES Final Result [facility] [address] [place] [address] * Bone marrow exam (12/09/2024 10:15 AM EDT) Case Report Bone Marrow Case: [id number] Authorizing Provider: Virgen Vargas MD Collected: 12/09/2024 1015 Ordering Location: [facility] Hematology/BMT and Received: 12/09/2024 1145 Cellular Therapy Program Pathologist: Gerry Jensen MD Specimens: A) - Bone Marrow Aspirate, right B) - Bone Marrow Biopsy, right C) - Peripheral Blood for Bone Marrow 12/19/2024 5:35 PM EDT [facility] Cytogenetics Report, Addendum Chromosome Analysis [...] were observed on this patient's previous specimen [id number] and indicate persistent disease. 12/19/2024 5:35 PM EDT [facility] Addendum electronically signed by Gerry Jensen MD on 12/19/2024 at 1735 EDT Final Diagnosis PERIPHERAL BLOOD AND BONE MARROW, RIGHT POSTERIOR ILIAC CREST, (PERIPHERAL SMEAR, ASPIRATE SMEAR, AND CORE BIOPSY): - NORMOCELLULAR BONE MARROW WITH ERYTHROID HYPERPLASIA, VIRTUALLY ABSENT MATURING GRANULOPOIESIS, AND 14% BLASTS, SEE COMMENT. 12/19/2024 5:35 PM EDT [facility] at 1706 EDT Comment While by flow cytometric analysis blasts constitute 23% of cellularity, the majority of bone marrow cellularity consists of erythroid precursors that are removed by flow cytometry. This leads to the discrepancy between the percentage of blasts by flow cytometry and morphologic examination. Nonetheless, the findings are consistent with some residual disease. 12/19/2024 5:35 PM EDT [facility] Clinical Information AML s/p cycle 2 12/19/2024 5:35 PM EDT [facility] CBC and Differential PERIPHERAL BLOOD: [...] Platelets are decreased. 12/19/2024 5:35 PM EDT [facility] Bone Marrow Differential BONE MARROW DIFFERENTIAL: 400 cells Normal Patient Neutrophils 15-50 0 Metamyelocytes 4-19 0 Myelocytes 1-18 1 Promyelocytes 1-8 0 Blasts 0-2 14 Monocytes 0-5 3 Erythroid 16-38 76 Lymphocytes 3-24 1 Eosinophils 0-6 0 Basophils 0-2 0 Plasma cells 0-4 5 Other 12/19/2024 5:35 PM EDT [facility] Aspirate Smear The bone marrow [...] predominantly normal morphology. 12/19/2024 5:35 PM T [facility] Core Biopsy The core biopsy is small and shows 5 mm of a normocellular bone marrow with a cellularity of approximately 30% that is predominantly comprised of erythroid precursors. Erythropoiesis is left-shifted, but maturing. Maturing granulopoiesis is virtually absent. Myeloid cells almost entirely consists of immature precursors. Megakaryocytes are decreased and exhibit predominantly normal morphology. 12/19/2024 5:35 PM T [facility] Flow Cytometry Interpretation Flow cytometric analysis shows approximately 23% population of CD34 positive myeloid blasts expressing CD34, CD117, CD13, CD33, HLA-DR, partial CD7, variable CD123, partial CD38, and moderate CD45 ([id number]). 12/19/2024 5:35 PM EDT [facility] Gross Description B. RIGHT A single specimen is received in formalin labeled bone marrow biopsy right posterior iliac crest and consists of 1 piece(s) of red/white tissue measuring 0.7 cm in length 0.2 cm in diameter. The specimen is submitted in to Histology for decalcification and routine processing. Cold Time: <1m 12/19/2024 5:35 PM EDT [facility] Note: A resident was involved in the service. I attest I examined the relevant preparations for the specimens and confirmed the diagnosis or interpretation. 12/19/2024 5:35 PM EDT [facility] Bone Marrow Peripheral blood specimen [...] PATHOLOGY ORDERABLES Edit ed Result - Final [facility] [address] [place] [address] * BIOPSY BONE MARROW (12/09/2024 10:00 AM EDT) Narrative Kierra Novak APRN - 12/09/2024 10:00 AM EDT Kierra Novak APRN 12/09/2024 12:08 PM Biopsy bone marrow Date/Time: 12/09/2024 10:00 AM Performed by: Kierra Novak APRN Authorized by: Kierra Novak APRN Consent: Consent obtained: Written Consent given by: Patient Risks, benefits, and alternatives were discussed: yes Risks discussed: Bleeding, infection and pain Raymond protocol: Procedure explained and questions answered to patient or proxy's satisfaction: yes Site/side marked: yes Immediately prior to procedure, a time out was called: yes Patient identity confirmed: Verbally with patient, arm band and hospital-assigned identification number Indications: Indications: MDS/AML Pre-procedure details: Skin preparation: Povidone-iodine Preparation: Patient was prepped and aped in the usual sterile fashion Sedation: Sedation type: None Anesthesia: Anesthesia method: Local infiltration Local anesthetic: Lidocaine 1% w/o epi Procedure specific details: Pt was assisted to prone position. Specimen (core and aspiration) obtained from right iliac crest spine. Post-procedure details: Procedure completion: Tolerated well, no immediate complications Kierra Novak MEDICAL GENETICIST IN CLINIC/BEDSIDE ORDERAB LES Final Result * [...] ORDERABLE S Final Result Performing Organization Address [facility] Co de Phone Number BLOOD BANK [address] [place] [address] * Morphology (12/09/2024 8:45 AM EDT) Elliptocytes/ Ovalocytes Present LAB HEMATOLOGY METHOD 12/09/2024 11:45 AM EDT [facility] RBC Morphology Slide Reviewed LAB HEMATOLOGY METHOD 12/09/2024 11:45 AM EDT [facility] Platelet Estimate Platelet smear estimate consistent with automated count LAB HEMATOLOGY METHOD 12/09/2024 11:45 AM EDT [facility] Blood Venous blood specimen / Unknown Venipuncture / Unknown 12/09/2024 8:45 AM EDT 12/09/2024 8:56 AM EDT Virgen Vargas MD LAB BLOOD ORDERABLES Final Re sult [facility] [address] [place] [address], [place] [address] * (ABNORMAL) Manual Differential (12/09/2024 8:45 AM EDT) Blasts % 1 % LAB HEMATOLOGY METHOD 12/09/2024 11:45 AM EDT [facility] Promyelocytes % 0 % LAB HEMATOLOGY METHOD 12/09/2024 11:45 AM EDT [facility] Myelocytes % 0 % LAB HEMATOLOGY METHOD 12/09/2024 11:45 AM EDT [facility] Metamyelocytes % 0 % LAB HEMATOLOGY METHOD 12/09/2024 11:45 AM EDT [facility] Neutrophils % 10 % LAB HEMATOLOGY METHOD 12/09/2024 11:45 AM EDT [facility] Lymphocytes % 87 % LAB HEMATOLOGY METHOD 12/09/2024 11:45 AM EDT [facility] Reactive Lymphocytes % 0 % [...] 12/09/2024 11:45 AM EDT [facility] Monocytes Absolute 0.01(L) 0.30 - 0.90 10*3/uL LAB HEMATOLOGY METHOD 12/09/2024 11:45 AM EDT [facility] Eosinophils Absolute 0.00 0.00 - 0.50 10*3/uL LAB HEMATOLOGY METHOD 12/09/2024 11:45 AM EDT [facility] Basophils Absolute 0.00 0.00 - 0.10 10*3/uL LAB HEMATOLOGY METHOD 12/09/2024 11:45 AM EDT [facility] Blood Venous blood specimen / Unknown Venipuncture / Unknown 12/09/2024 8:45 AM EDT 12/09/2024 8:56 AM EDT Virgen Vargas MD LAB BLOOD ORDERABLES Final Re sult Performing Organization Address City/[facility]/ZIP Co de Phone Number [facility] [address] [place] [address] * Peripheral blood smear, pathologist interpretation (12/09/2024 8:45 AM EDT) Clinical Diagnosis, Peripheral Smear AML under therapy LAB HEMATOLOGY METHOD 12/09/2024 11:39 AM EDT [facility] Interpretation , Peripheral Smear Pancytopenia with rare circulating blast. A resident was involved in the service. I attest I examined the relevant preparations for the specimens and confirmed the diagnosis or interpretation. 12/09/2024 11:39 AM EDT [facility] Pathologist Signature, Peripheral Smear 12/09/2024 11:39 AM EDT [facility] Comment:Reviewed by: Martha Lopez MD LAB CP ASR DISCLAIMER Yes 12/09/2024 11:39 AM EDT [facility] Blood Venous blood specimen / Unknown Venipuncture / Unknown 12/09/2024 8:45 AM EDT 12/09/2024 8:56 AM EDT Virgen Vargas MD LAB PATHOLOGY ORDERABLES Terri l Result Performing Organization Address City/[facility]/ZIP Co de Phone Number [facility] [address] [place] [phone] * (ABNORMAL) Comprehensive metabolic panel (12/09/2024 8:45 AM EDT) Glucose, Plasma 103(H) 74 - 99 mg/dL 12/09/2024 9:33 AM EDT [facility] BUN, Plasma 9 8 - 23 mg/dL 12/09/2024 9:33 AM EDT [facility] Creatinine, Plasma 0.78 0.70 - 1.20 mg/dL 12/09/2024 9:33 AM EDT [facility] BUN/Creatinine Ratio 12 12/09/2024 9:33 AM EDT [facility] Sodium, Plasma 140 136 - 145 mmol/L 12/09/2024 9:33 AM EDT [facility] Potassium, Plasma 3.9 3.6 - 4.9 mmol/L 12/09/2024 9:33 AM EDT [facility] Chloride, Plasma 109(H) 97 - 107 mmol/L 12/09/2024 9:33 AM EDT [facility] CO2, Plasma 21(L) 22 - 29 mmol/L 12/09/2024 9:33 AM EDT [facility] Anion Gap 10 6 - 16 mmol/L 12/09/2024 9:33 AM EDT [facility] Total Calcium, Plasma 9.0 8.9 - 10.2 mg/dL 12/09/2024 9:33 AM EDT [facility] Total Protein 6.6 6.3 - 7.9 g/dL 12/09/2024 9:33 AM EDT [facility] Albumin, Plasma 3.9 3.5 - 5.2 g/dL 12/09/2024 9:33 AM EDT [facility] AST, Plasma 31 10 - 50 U/L 12/09/2024 9:33 AM EDT [facility] ALT, Plasma 37 10 - 50 U/L 12/09/2024 9:33 AM EDT [facility] Alkaline Phosphatase, Plasma 81 40 - 115 U/L 12/09/2024 9:33 AM EDT [facility] Total Bilirubin, Plasma 0.6 0.2 - 1.1 mg/dL 12/09/2024 9:33 AM EDT [facility] eGFRcr 96.5 mL/min/1.7 3m*2 12/09/2024 9:33 AM EDT [facility] Comment:Reported eGFRcr in m L/min/1.73m2 is based the CKD-EPI 2020 equation that does not use a race coefficient. Blood Venous blood specimen / Unknown Venipuncture / Unknown 12/09/2024 8:45 AM EDT 12/09/2024 9:01 AM EDT us Virgen Vargas MD LAB BLOOD ORDERABLES Final Re sult [facility] [address] [place] [address] * (ABNORMAL) CBC and differential (12/09/2024 8:45 AM EDT) WBC Count 0.68(LL) 3.70 - 10.30 10*3/uL LAB HEMATOLOGY METHOD 12/09/2024 11:45 AM EDT [facility] RBC Count 2.34(L) 4.60 - 6.10 10*6/uL LAB HEMATOLOGY METHOD 12/09/2024 11:45 AM EDT [facility] HGB 7.5(L) 13.7 - 17.5 g/dL LAB HEMATOLOGY METHOD 12/09/2024 11:45 AM EDT [facility] HCT 20.6(L) 40.0 - 51.0 % LAB HEMATOLOGY METHOD 12/09/2024 11:45 AM EDT [facility] Platelet Count 24(L) 155 - 369 10*3/uL LAB HEMATOLOGY METHOD 12/09/2024 11:45 AM EDT [facility] MCV 88 79 - 98 fL LAB HEMATOLOGY METHOD 12/09/2024 11:45 AM EDT [facility] MCH 32.1(H) 26.0 - 32.0 pg LAB HEMATOLOGY METHOD 12/09/2024 11:45 AM EDT [facility] MCHC 36.4(H) 30.7 - 35.5 g/dL LAB HEMATOLOGY METHOD 12/09/2024 11:45 AM EDT [facility] RDW 17.1(H) 11.5 - 14.5 % LAB HEMATOLOGY METHOD 12/09/2024 11:45 AM EDT [facility] MPV 9.2 8.8 - 12.5 [...] MD LAB BLOOD ORDERABLES Final Re sult [facility] [address] [place] [address] documented in this encounter Visit Diagnoses Diagnosis [...] documented as of this encounter Care Teams Dietary Server Relationship Specialty Start Date End Date Zhao Harris MD [address] [place] [address] PCP - General 12/03/20 documented as of this encounter
--- OUTSIDE RECORDS SUMMARY | 2024-12-09 13:30 | XMS_ITS | Encounter Summary ---
Author Organization [facility] Address [address] [place] [address] Care Team Providers Care Workers Compensation Adjuster Name Role Phone Zhao Harris MD Primary Care Provider [phone] Reason for Visit * Reason Comments Follow-up Encounter Details Date Type Department Care Team (Latest Contact Info) Description 12/09/2024 1:30 PM EDT Clinical Support [facility] Cancer Acute Treatment Clinic 800 [facility], 2nd [place] [phone] Myelodysplasia (myelodysplastic syndrome) (CMS/HCC) (Primary Dx); Thrombocytopenia [...] drink first t manav in the morning (EYE-FLUE TILE PRESS OPERATOR) to steady your nerves or to [...] Team (Late st Contact Info) Description 02/02/2025 9:30 AM EDT Appointment PAV A Interventional Radiology [address] [place] [address] 02/10/2025 8:30 AM EDT Clinical Support [facility] Hematology/BMT and Cellular Therapy Program [address] [place] [address] 02/10/2025 9:00 AM EDT Office Visit PAV Hematology/BMT and Cellular Therapy Program [address] [place] [address] Elaina Boss, PA 800 [facility] [address] [place] [phone] 02/10/2025 10:30 AM EDT Appointment [facility] Infusion Clinic 1 744 [place] [address] 02/11/2025 2:00 PM EDT Appointment [facility] Infusion [facility] 1 7[address] [place] [address] 02/12/2025 2:00 PM EDT Appointment [facility] Infusion [facility] 1 [address] [place] [phone] 02/13/2025 2:00 PM EDT Appointment [facility] Infusion [facility] 1 7[address] [place] [address] 02/14/2025 2:00 PM EDT Appointment [facility] Infusion [facility] 1 [address] [place] [phone] 03/10/2025 8:30 AM EDT Clinical Support [facility] Hematology/BMT and Cellular Therapy Program [address] [place] [address] 03/10/2025 9:00 AM EDT Office Visit PAV Hematology/BMT and Cellular Therapy Program [address] [place] [address] Isaura Wynn, CONSUMER MARKETING SPECIALIST 800 [facility] [address] [place] [phone] 03/10/2025 11:20 AM EDT Office Visit Pav Head, Neck & Respiratory 800 [facility], 2nd [place] [address] Elsa Razo, CONSUMER MARKETING SPECIALIST 800 [place] [address] documented as of this encounter Procedures Procedure Name Priority Date/Time Associated Diagnosis Comments PREPARE RBC Routine 12/09/2024 1:17 PM EDT Myelodysplasia (myelodysplastic syndrome) (CMS/HCC) Thrombocytopenia (CMS/HCC) documented in this encounter Results * Transfuse RBC, Irradiated (12/09/2024 3:57 PM EDT) us Kayli CHIU BLOOD TRANSFUSION ORDERA BLES Final Result * Prepare Leukocyte Reduced RBC: 1 Units, Irradiated (12/09/2024 1:17 PM EDT) Product Code [id number] CH BLOO D BANK Dispense Status Transfused BLOOD BANK Blood Expiration Date [id number] BLOOD BANK Unit Number [id number] B LOOD BANK Product Blood Type 9500 BLOOD BANK Blood Type O- BLOOD BANK Crossmatch Compatible BLOOD BANK Other Kayli CHIU BLOOD BANK PRODUCT ORDER VIKAS Final Result BLOOD BANK [address] documented in this encounter Visit [...] documented as of this encounter Care Teams Workers Compensation Adjuster Relationship Specialty Start Date End Date Zhao Harris MD [facility] [place] [address] PCP - General 12/03/20 documented as of this encounter
--- OUTSIDE RECORDS SUMMARY | 2024-12-11 08:30 | XMS_ITS | Encounter Summary ---
Author Organization [facility] Address [address] [place] [address] Care Team Providers Care Non Profit Job Titles Name Role Phone Zhao Harris MD Primary Care Provider [phone] Reason for Visit * Reason Comments Nurse Visit Labs Encounter Details Date Type Department Care Team (Latest Contact Info) Description 12/11/2024 8:30 AM EDT Clinical Support [facility] Hematology/BMT and Cellular Therapy Program [address] [place] [address] [place] [address] Myelodysplasia (myelodysplastic syndrome) (CMS/HCC) Social History Tobacco [...] drink first t manav in the morning (EYE-LOAN MANAGER) to steady your nerves or to [...] Upcoming Encounters Date Type Department Care Team ([facility] st Contact Info) Description 02/02/2025 9:30 AM EDT Appointment [facility] A Interventional Radiology [address] [place] [address] 02/10/2025 8:30 AM EDT Clinical Support [facility] Hematology/BMT and Cellular Therapy Program [address] [address] 02/10/2025 9:00 AM EDT Office Visit [facility] Hematology/BMT and Cellular Therapy Program [address] [phone] Elaina Boss, PA 800 [facility] [address] [place] [phone] 02/10/2025 10:30 AM EDT Appointment [facility] Infusion [facility] [address] [place] [address] 02/11/2025 2:00 PM EDT Appointment [facility] [address] [place] [address] 02/12/2025 2:00 PM EDT Appointment [facility] [address] [place] [address] 02/13/2025 2:00 PM EDT Appointment [facility] [address] [place] [address] 02/14/2025 2:00 PM EDT Appointment [facility] [address] [place] [address] 03/10/2025 8:30 AM EDT Clinical Support [facility] Hematology/BMT and Cellular Therapy Program 750 [facility] [phone] 03/10/2025 9:00 AM EDT Office Visit [facility] Hematology/BMT and Cellular Therapy Program 750 [facility], [address] [place] [phone] Isaura Wynn, CEMENT STORAGE WORKER 800 [facility] [address] [place] [phone] 03/10/2025 11:20 AM EDT Office Visit Pav CC Head, Neck & Respiratory 800 [facility], 2nd [place] [address] Elsa Razo, CEMENT STORAGE WORKER [address] [place] [phone] documented as of this encounter Procedures Procedure [...] LAB HEMATOLOGY METHOD 12/11/2024 10:53 AM EDT [facility] RBC Morphology Slide Reviewed LAB HEMATOLOGY METHOD 12/11/2024 10:53 AM EDT [facility] Platelet Estimate Platelet smear estimate consistent with automated count LAB HEMATOLOGY METHOD 12/11/2024 10:53 AM EDT [facility] Blood Venous blood specimen / Unknown Venipuncture / Unknown 12/11/2024 8:38 AM EDT 12/11/2024 8:50 AM EDT Virgen Vargas MD LAB BLOOD ORDERABLES Final Re sult Performing Organization Address City/[facility]/ZIP Co de Phone Number [facility] [address] [place] [address] * Peripheral blood smear, pathologist interpretation (12/11/2024 8:38 AM EDT) Clinical Diagnosis, Peripheral Smear History of acute myeloid leukemia (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 Interpretation , Peripheral Smear Marked leukopenia with neutropenia and 1% circulating blasts. Dysplastic neutrophils (hypogranular) are noted. Moderate anemia and marked thrombocytopen ia. 12/11/2024 4:[address] [facility] Pathologist Signature, Peripheral Smear 12/11/2024 4:[address] [facility] Comment:Reviewed by: Omar Peralta MD Blood Venous blood specimen / Unknown Venipuncture / Unknown 12/11/2024 8:38 AM EDT 12/11/2024 8:50 AM EDT Virgen Vargas MD LAB PATHOLOGY ORDERABLES Terri l Result Performing Organization Address City/[facility]/ZIP Co de Phone Number [facility] [address] [place] [address] * (ABNORMAL) Manual Differential (12/11/2024 8:38 AM EDT) Blasts % 1 % LAB HEMATOLOGY METHOD 12/11/2024 10:53 AM EDT [facility] Promyelocytes % 0 % [...] LAB HEMATOLOGY METHOD 12/11/2024 10:53 AM EDT [facility] Promyelocytes Absolute 0.00 10*3/uL LAB HEMATOLOGY METHOD 12/11/2024 10:53 AM EDT [facility] Myelocytes Absolute 0.00 10*3/uL [...] LAB HEMATOLOGY METHOD 12/11/2024 10:53 AM EDT [facility] Blood Venous blood specimen / Unknown Venipuncture / Unknown 12/11/2024 8:38 AM EDT 12/11/2024 8:50 AM EDT us Virgen Vargas MD LAB BLOOD ORDERABLES Final Re sult [facility] [address] [place] [address] * (ABNORMAL) CBC and differential (12/11/2024 8:38 AM EDT) WBC Count 0.61(LL) 3.70 - 10.30 10*3/uL LAB HEMATOLOGY METHOD 12/11/2024 10:54 AM EDT [facility] RBC Count 2.80(L) 4.60 - 6.10 10*6/uL LAB HEMATOLOGY METHOD 12/11/2024 10:54 AM EDT [facility] HGB 8.9(L) 13.7 - 17.5 g/dL LAB HEMATOLOGY METHOD 12/11/2024 10:54 AM EDT [facility] HCT 25.1(L) 40.0 - 51.0 % LAB HEMATOLOGY METHOD 12/11/2024 10:54 AM EDT [facility] Platelet Count 11(LL) 155 - 369 10*3/uL LAB HEMATOLOGY METHOD 12/11/2024 10:54 AM EDT [facility] MCV 90 79 - 98 fL LAB HEMATOLOGY METHOD 12/11/2024 10:54 AM EDT [facility] MCH 31.8 26.0 - 32.0 pg LAB HEMATOLOGY METHOD 12/11/2024 10:54 AM EDT [facility] MCHC 35.5 30.7 - 35.5 g/dL LAB HEMATOLOGY METHOD 12/11/2024 10:54 AM EDT [facility] RDW 16.2(H) 11.5 - 14.5 % LAB HEMATOLOGY METHOD 12/11/2024 10:54 AM EDT [facility] MPV 12.3 8.8 - 12.5 fL LAB HEMATOLOGY METHOD 12/11/2024 10:54 AM EDT [facility] nRBC 4.9(H) <=0.0 per 100 WBCs LAB HEMATOLOGY METHOD 12/11/2024 10:54 AM EDT [facility] Differential Type Manual LAB HEMATOLOGY METHOD 12/11/2024 10:54 AM EDT [facility] Blood Venous blood specimen [...] MD LAB BLOOD ORDERABLES Final Re sult [facility] [address] [place] [address] * (ABNORMAL) Comprehensive Metabolic Panel, Plasma (12/11/2024 8:38 AM EDT) Glucose, Plasma 105(H) 74 - 99 mg/dL 12/11/2024 9:[address] [facility] BUN, Plasma 10 8 - 23 mg/dL 12/11/2024 9:[address] [facility] Creatinine, Plasma 0.75 0.70 - 1.20 mg/dL 12/11/2024 9:[address] [facility] BUN/Creatinine Ratio 13 12/11/2024 9:[address] [facility] Sodium, Plasma 140 136 - 145 mmol/L 12/11/2024 9:[address] [facility] Potassium, Plasma 4.1 3.6 - 4.9 mmol/L 12/11/2024 9:[address] [facility] Chloride, Plasma 110(H) 97 - 107 mmol/L 12/11/2024 9:[address] [facility] CO2, Plasma 22 22 - 29 mmol/L 12/11/2024 9:[address] [facility] Anion Gap 8 6 - 16 mmol/L 12/11/2024 9:[address] [facility] Total Calcium, Plasma 9.1 8.9 - 10.2 mg/dL 12/11/2024 9:[address] [facility] Total Protein 6.9 6.3 - 7.9 g/dL 12/11/2024 9:[address] [facility] Albumin, Plasma 4.0 3.5 - 5.2 g/dL 12/11/2024 9:[address] [facility] AST, Plasma 38 10 - 50 U/L 12/11/2024 9:[address] [facility] ALT, Plasma 40 10 - 50 U/L 12/11/2024 9:[address] [facility] Alkaline Phosphatase, Plasma 86 40 - 115 U/L 12/11/2024 9:[address] [facility] Total Bilirubin, Plasma 0.6 0.2 - 1.1 mg/dL 12/11/2024 9:[address] [facility] eGFRcr 97.7 mL/min/1.7 3m*2 12/11/2024 9:[address] [facility] Comment:Reported eGFRcr in m L/min/1.73m2 is based the CKD-EPI 2020 equation that does not use a race coefficient. Blood Venous blood specimen / Unknown Venipuncture / Unknown 12/11/2024 8:38 AM EDT 12/11/2024 8:50 AM EDT us Virgen Vargas MD LAB BLOOD ORDERABLES Final Re sult [facility] [address] [place] [address] documented in this encounter Visit Diagnoses Diagnosis [...] documented as of this encounter Care Teams Non Profit Job Titles Relationship Specialty Start Date End Date Zhao Harris MD [address] [place] [address] PCP - General 12/03/20 documented as of this encounter
--- OUTSIDE RECORDS SUMMARY | 2024-12-11 09:00 | XMS_ITS | Encounter Summary ---
Author Organization [facility] Address [address] [place] [address] Care Team Providers Care Talent Acquisition Relationship Manager Name Role Phone Zhao Harris MD Primary Care Provider + [phone] Reason for Visit * Consultation (Routine) - Closed Specialty Diagnoses / Procedures Referred By Justice mcgee Referred To Contact Medical Oncology Diagnoses 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) Virgen Vargas MD 800 [facility] Cancer [address] [address] Phone: tel: fax: Referral ID Status Reason Start Date Expiration Date V isits Requested Visits Authorized [id number] Closed Specialty Services Required 12/11/2024 06/12/2026 1 1 Encounter Details Date Type Department Care Team (Latest Contact Info) Description 12/11/2024 9:00 AM EDT Office Visit PAV CC Hematology/BMT and Cellular Therapy Program [address] [place] [phone] Virgen Vargas MD 800 [facility] Cancer [address] [address] Myelodysplasia (myelodysplastic syndrome) (CMS/HCC) (Primary [...] first t manav in the morning (EYE-LEAD TANK MECHANIC) to steady your nerves or to [...] a preserved mata-T cell profile with a CD4:TV6ikisg of 2.7:1. Polyclonal B-cells (3%) and a small plasma cell population (0.6%) were also identified. Cytogenetics: Normal. Molecular Testing: PCR for NPM1 and FLT3 mutations are negative. Next-generation sequencing (NGS) myeloid panel: ASXL1 - p.[id number] - VAF 25% TP53 - p.[id number] - VAF 36% U2AF1 - p.Ezh677Vmz - VAF 33% 10/20/2024- started treatment with [...] a durable remission in the context of ML97-zuksxmu AML. The third, and most promising, option would be enrollment in a clinical trial, ideally one that targets TP53- mutant disease or incorporates novel agents. Unfortunately, there are no active trials available locally or at [facility], but I have reached out to Dr. Fernandes at [facility] to explore any opportunities there. We [...] in completing the documentation. Virgen Vargas M.D. Car Seat Upholsterer Division of Hematology/BMT [facility] [1] Current Outpatient Medications: acyclovir (Zovirax) [...] constipation., Disp: 30 tablet, Rfl: 3 HYDROcodone-acetaminophen ([place]) 5-325 MG tablet, Take 1 tablet by [...] PAV A Interventional Radiology [address] [place] [address] 02/10/2025 8:30 AM EDT Clinical Support PAV Hematology/BMT and Cellular Therapy Program [address] [address] 02/10/2025 9:00 AM EDT Office Visit PAV Hematology/BMT and Cellular Therapy Program [address] [address] Elaina Boss, [place] 800 [facility] [address] [place] [phone] 02/10/2025 10:30 AM EDT Appointment [facility] Infusion Clinic 1 [address] [place] [address] 02/11/2025 2:00 PM EDT Appointment [facility] Infusion Clinic 1 [address] [place] [address] 02/12/2025 2:00 PM EDT Appointment [facility] Infusion Clinic 1 [address] [place] [address] 02/13/2025 2:00 PM EDT Appointment [facility] Infusion Clinic 1 [address] [place] [address] 02/14/2025 2:00 PM EDT Appointment [facility] Infusion Clinic 1 [address] [place] [address] 03/10/2025 8:30 AM EDT Clinical Support PAV Hematology/BMT and Cellular Therapy Program [address] [address] 03/10/2025 9:00 AM EDT Office Visit PAV Hematology/BMT and Cellular Therapy Program [address] [address] Isaura Wynn, ESTRELLA 800 [facility] [address] [place] [phone] 03/10/2025 11:20 AM EDT Office Visit Pav CC Head, Neck & Respiratory 800 [facility], 2nd [place] [address] Elsa Razo, QUILL STRIPPER 800 [place] [address] documented as of this encounter Visit Diagnoses [...] documented as of this encounter Care Teams Talent Acquisition Relationship Manager Relationship Specialty Start Date End Date Zhao Harris MD [address] [address] PCP - General 12/03/20 documented as of this encounter
--- OUTSIDE RECORDS SUMMARY | 2024-12-11 13:00 | XMS_ITS | Encounter Summary ---
Author Organization [facility] Address [address] [place] [address] Care Team Providers Care Instrument Lens Inspector Name Role Phone Zhao Harris MD Primary Care Provider [phone] Encounter Details Date Type Department Care Team (Latest Contact Info) Description 12/11/2024 1:00 PM EDT Clinical Support [facility] Cancer Acute Treatment [facility] [address] [place] [address] Myelodysplasia (myelodysplastic syndrome) (CMS/HCC) (Primary Dx); Thrombocytopenia [...] drink first t manav in the morning (EYE-IRRIGATION LABORER) to steady your nerves or to get [...] Sign Reading Time Taken Comments Blood Pressure 128/55 12/11/2024 1:48 PM EDT Pulse 60 12/11/2024 1:48 PM EDT Temperature 37.1 C (98.7 F) 12/11/2024 1:48 PM EDT Respiratory Rate 16 12/11/2024 1:48 PM EDT Oxygen Saturation 98% 12/11/2024 1:48 PM EDT Inhaled Oxygen Concentration - - Weight 87.5 kg (192 lb 14.4 oz) 025 12:52 PM EDT Height - - Body Mass Index 30.21 12/11/2024 8:55 AM EDT documented in this encounter Miscellaneous Notes * Clinician Note - Ni Polk RN - 12/11/2024 1:00 PM EDT Patient informed of blood product [...] treatment. Patient verbally reported understanding the information provided. Patient did not want to stay for the results of his platelet recheck lab due to having another appointment. Primary RN Key Millan, notified of patients refusal to stay. documented in this encounter Plan of Treatment Upcoming Encounters Date Type Department Care Team (Late st Contact Info) Description 02/02/2025 9:30 AM EDT Appointment [facility] A Interventional Radiology [address] [place] [address] 02/10/2025 8:30 AM EDT Clinical Support [facility] Hematology/BMT and Cellular Therapy Program [address] [address] 02/10/2025 9:00 AM EDT Office Visit [facility]AV Hematology/BMT and Cellular Therapy Program [address] [address] Elaina Boss, PA 800 [facility] [address] [place] [address] 02/10/2025 10:30 AM EDT Appointment [facility] 1 [address] [place] [address] 02/11/2025 2:00 PM EDT Appointment [facility] 1 [address] [place] [address] 02/12/2025 2:00 PM EDT Appointment [facility] 1 [address] [place] [address] 02/13/2025 2:00 PM EDT Appointment [facility] 1 [address] [place] [address] 02/14/2025 2:00 PM EDT Appointment [facility] 1 [address] [place] [address] 03/10/2025 8:30 AM EDT Clinical Support [facility] Hematology/BMT and Cellular Therapy Program [address] [address] 03/10/2025 9:00 AM EDT Office Visit [facility] Hematology/BMT and Cellular Therapy Program [address] [address] Isaura Wynn, MEDICAL AFFAIRS DIRECTOR 800 [facility] [address] [place] [phone] 03/10/2025 11:20 AM EDT Office Visit Pav Head, Neck & Respiratory 800 [facility], 2nd [place] [phone] Elsa Razo, MEDICAL AFFAIRS DIRECTOR [address] [place] [address] documented as of this encounter Procedures Procedure Name Priority Date/Time Associated Diagnosis Comments PLATELET COUNT, BLOOD STAT 12/11/2024 2:04 PM EDT PREPARE PLATELETS Routine 12/11/2024 12: 57 PM EDT Myelodysplasia (myelodysplastic syndrome) (CMS/HCC) Thrombocytopenia (CMS/HCC) documented in this encounter Results * Transfuse platelets (12/11/2024 2:15 PM EDT) Kayli CHIU BLOOD TRANSFUSION ORDERA BLES Final Result * (ABNORMAL) Platelet count (12/11/2024 2:04 PM EDT) Platelet Count 35(L) 155 - 369 10*3/uL LAB HEMATOLOGY METHOD 12/11/2024 2:37 PM EDT [facility] LAB Blood Venous blood specimen / Unknown Venipuncture / Unknown 12/11/2024 2:04 PM EDT 12/11/2024 2:34 PM EDT Glenroy Kim MD LAB BLOOD ORDERABLES Fi nal Result [facility] [address] [place] [address] * Prepare Leukocyte Reduced Platelets: 1 Units (12/11/2024 12:57 PM EDT) Product Code X6190T33 CH BLOO D BANK Dispense Status Transfused BLOOD BANK Blood Expiration Date [id number] BLOOD BANK Unit Number [id number] CH B LOOD BANK Product Blood Type 6200 BLOOD BANK Blood Type A+ CH BLOOD BANK Blood Venous blood specimen / Unknown Kayli CHIU BLOOD BANK PRODUCT ORDER VIKAS Final Result BLOOD BANK [address] documented in this encounter Visit Diagnoses [...] documented as of this encounter Care Teams Instrument Lens Inspector Relationship Specialty Start Date End Date Zhao Harris MD [address] [place] [address] PCP - General 12/03/20 documented as of this encounter
--- OUTSIDE RECORDS SUMMARY | 2024-12-11 14:30 | XMS_ITS | Encounter Summary ---
Author Organization [facility] Address [address] [place] [address] Care Team Providers Care Electronics Mechanic Apprentice Name Role Phone Zhao Harris MD Primary Care Provider [phone] Reason for Visit * Consultation (Routine) - Closed Specialty Diagnoses / Procedures Referred By Contact Referred To Contact Interventional Radiology Diagnoses Myelodysplasia (myelodysplastic syndrome) (CMS/HCC) Mckinley Lee MD [address] [place] [address] Phone: tel:[phone] fax:[phone] [facility] Vascular Interventional Radiology [address] [facility] [address] [place] [phone] Phone: tel: Referral ID Status Reason Start Date Expiration Date V isits Requested Visits Authorized [id number] Closed Specialty Services Required 12/01/2024 06/02/2026 1 1 Encounter Details Date Type Department Care Team (Latest Contact Info) Description 12/11/2024 2:30 PM EDT Office Visit [facility] Interventional Radiology [address] [facility] [address] [place] [phone] Judy Leung APRN, SHEEBA [address] [place] [address] Port-A-Cath in place (Primary Dx); Myelodysplasia (myelodysplastic syndrome) (CMS/HCC) Social History Tobacco [...] drink first t manav in the morning (EYE-BLUE SPLIT TRIMMER) to steady your nerves or to get [...] Sign Reading Time Taken Comments Blood Pressure 135/74 12/11/2024 2:33 PM EDT Pulse 65 12/11/2024 2:33 PM EDT Temperature 36.5 C (97.7 F) 12/11/2024 2:33 PM EDT Respiratory Rate - - Oxygen Saturation 98% 12/11/2024 2:33 PM EDT Inhaled Oxygen Concentration - - Weight 85.8 kg (189 lb 2.5 oz) 12/11/2024 2:33 P M EDT Height - - Body Mass Index 29.62 12/11/2024 8:55 AM EDT documented in this encounter Miscellaneous Notes * Addendum Note - Irena Velasquez - 12/11/2024 2:30 PM EDTAddended by: IRENA VELASQUEZ on: 12/12/2024 08:43 AM Modules accepted: Orders * Progress Notes - Judy Leung, MEDICAL TECHNOLOGIST CHIEF, DNP - 12/11/2024 2:30 PM EDT Images from the original note were not included. Hugo Lyons presents today for follow up after port placement. Subjective History of Present Illness: Hugo Lyons is a 69 y.o. year old male with HTN and myelodysplastic syndrome/acute myeloid leukemia. In 2019, he was found to have thrombocytopenia. 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 The biopsy revealed 15-17% blasts, multilineage dysplasia, and no fibrosis or ring sideroblasts. Flow cytometry showed 17% myeloblasts expressing CD34, CD117, CD13, and variably CD33. Cytogenetics and FLT3/NPM1 testing were normal. He had Cycle 1 azacitidine/venetoclax 10/20/24. Bone marrow biopsy after cycle 1 shows 40-50% blasts. He had cycle 2 on 11/18/24. He is followed by hematology with plan CBC x three times/week and transfuse PRBCs if Hb < 7 or platelets < 10. He underwent right chest port placement on 12/01/24. Denies fever, chills, drainage, swelling or pain at port site. Port has not yet been accessed. He is being referred to [facility] for possible trials. Allergies: Patient has no known allergies. Medications: Current Medications[1] Past Surgical History: Hugo has a past surgical history that includes Total knee arthroplasty (Right); Joint replacement (Left); and Portacath placement (12/01/2024). Past Medical History: He has a past medical history of Arteriosclerotic cardiovascular disease, Cancer (CMS/HCC), Chronicstable angina (CMS/HCC), and Hypertension. Past Family History: [...] does not use drugs. Review of Systems: 14 point ROS negative except for above. Objective Physical Exam: Vitals: 12/11/24 1433 BP: 135/74 Pulse: 65 Temp: 36.5 ??C (97.7 ??F) SpO2: 98% Physical Exam Vitals reviewed. Constitutional: General: He is not in acute distress. Appearance: Normal appearance. He is not ill-appearing. HENT: Head: Normocephalic. Nose: Nose normal. Eyes: General: No scleral icterus. Conjunctiva/sclera: Conjunctivae normal. Pulmonary: Effort: Pulmonary effort is normal. No respiratory distress. Abdominal: General: Abdomen is flat. There is no distension. Skin: Comments: Port site incision healing well with minimal redness and bruising, no edema or drainage, some Dermabond remains Neurological: General: No focal deficit present. Mental Status: He is alert and oriented to person, place, and time. Psychiatric: Mood and Affect: Mood normal. Behavior: Behavior normal. Thought Content: Thought content normal. Judgment: Judgment normal. Imaging: IR Port Placement 5+ Years Narrative: CLINICAL INDICATION: 69M here for port placement. New AML, starting chemotherapy. Digester Cook: Mckinley Lee MD Secondary Crown Assembly Machine Set Up Mechanic: Dr. David Holt Rad Dose: 6 mGy [...] informed written consent was obtained. Appropriate time outwas done to confirm patient identity and planned procedure. The patient was placed supine on the fluoro table. Agricultural Education Instructor ultrasonography revealed the vein to be compressible [...] a tract from the pocket to the puncturesite at the base of the neck. A [...] the port and tubing volume. The subcutaneous tissuesoverlying the port were closed with interrupted 3-0 Vicryl. Dermabond was then applied to the incisions.The patient tolerated the procedure well with no evidence of complication. Device: 6 Slovenian port catheter cut to length of 25 cm. COMPARISON: None. FINDINGS: Patent R IJV COMPLICATION: No. Impression: Successful placement of subcutaneous chest port; line [...] Mckinley Lee MD on 12/02/2024 7:02 AM Labs: Labs in chart were reviewed. Lab Results Component Value Date WBC 0.61 (LL) 12/11/2024 HGB 8.9 (L) 12/11/2024 HCT 25.1 (L) 12/11/2024 PLT 35 (L) 12/11/2024 Lab Results Component Value Date NA 140 12/11/2024 K 4.1 12/11/2024 CL 110 (H) 12/11/2024 CO2 22 12/11/2024 BUN 10 12/11/2024 CREATININE 0.75 12/11/2024 GLUCOSE 105 (H) 12/11/2024 Lab Results Component Value Date CALCIUM 9.1 12/11/2024 MG 2.0 10/22/2024 PHOS 3.9 10/22/2024 Lab Results Component Value Date AST 38 12/11/2024 ALT 40 12/11/2024 ALKPHOS 86 12/11/2024 Lab Results Component Value Date APTT 29 09/29/2024 INR 1.1 11/26/2024 Assessment/Plan Myelodysplastic syndrome/acute myeloid leukemia Pancytopenia - In 2019, he was found to have thrombocytopenia - Bone marrow biopsy in Aug 2024 showed 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 for possible trials PLAN: - Port accessed in clinic today and functioning well - Denies fever or chills; no drainage, swelling at site - Instructed to call with any signs of infection or malfunction - Return to [facility] PRN Medical Decision Making/Plan: Diagnoses and all orders for this visit: Port-A-Cath in place - heparin flush (porcine) 100 UNIT/ML injection 500 Units Myelodysplasia (myelodysplastic syndrome) (CMS/HCC) - Discharge Ambulatory referral to [facility] Clinic I spent 35 minutes on this encounter; including preparing to see the patient, which involved review/interpretation of diagnostics and reports, obtaining and/or reviewing separately obtained history, performing appropriate physical exam, communicating findings, reviewing labs/imaging, counseling/educating the patient, discussing potential complications (bleeding, infection, damage to surrounding structures), documentation in EMR and formulating subsequent treatment plan. This note was generated, at least in part, by Voice Recognition Technology in combination with keyboard input. It has been reviewed by the undersigned; however, may still contain unintended errors. Thank you for allowing me to participate in the care of Hugo Hernandez Lyons. Judy Leung APRN, DNP Vascular & Interventional Radiology [1] Current Outpatient Medications: acyclovir (Zovirax) 800 MG tablet, Take 1 tablet (800 mg) by mouth in the morning and 1 tablet (800mg) before bedtime., Disp: 60 tablet, Rfl: 3 bisoprolol (Zebeta) 5 MG tablet, Take 1 tablet (5 mg) by mouth daily., Disp: 90 tablet, Rfl: 3 HYDROcodone-acetaminophen (Cadwell) 5-325 MG tablet, Take 1 tablet by [...] being accessed., Disp: 30 g, Rfl: 2 nitroglycerin (Nitrostat) 0.4 MG SL tablet, Place [...] daily. Days 1-14, Disp: 14 tablet, Rfl:0 No current facility-administered medications for this visit. Facility-Administered Medications Ordered in Other Visits: Blood Therapy Plan Authorization, , , Once (Auth Referral), Kayli Ospina PA diphenhydrAMINE (Benadryl) injection 50 mg, 50 mg, Intravenous, Once PRN, Kayli Ospina PA sodium chloride 0.9 % bolus 1,000 mL, 1,000 mL, Intravenous, Once PRN, Kayli Ospina PA documented in this encounter Plan of Treatment Upcoming Encounters Date Type Department Care Team (Late st Contact Info) Description 02/02/2025 9:30 AM EDT Appointment [facility] A Interventional Radiology [address] [place] [address] 02/10/2025 8:30 AM EDT Clinical Support [facility] Hematology/BMT and Cellular Therapy Program [address] [place] [address] [place] [address] 02/10/2025 9:00 AM EDT Office Visit [facility] Hematology/BMT and Cellular Therapy Program [address] [place] [address] [place] [address] Elaina Boss, PA 800 [facility] [address] [phone] 02/10/2025 10:30 AM EDT Appointment [facility]fusion [facility] 1 [address] [place] [phone] 02/11/2025 2:00 PM EDT Appointment [facility] 1 [address] [place] [phone] 02/12/2025 2:00 PM EDT Appointment [facility] 1 [address] [place] [phone] 02/13/2025 2:00 PM EDT Appointment [facility] 1 [address] [place] [phone] 02/14/2025 2:00 PM EDT Appointment [facility] 1 [address] [place] [phone] 03/10/2025 8:30 AM EDT Clinical Support [facility] Hematology/BMT and Cellular Therapy Program [address] [phone] 03/10/2025 9:00 AM EDT Office Visit [facility] Hematology/BMT and Cellular Therapy Program [address] [phone] Isaura Wynn, MEDICAL TECHNOLOGIST CHIEF 800 [facility] [address] [phone] 03/10/2025 11:20 AM EDT Office Visit Pav [facility] Head, Neck & Respiratory 800 [facility], 2nd [place] [phone] Elsa Razo, MEDICAL TECHNOLOGIST CHIEF [address] [place] [phone] documented as of this encounter Procedures Procedure Name Priority Date/Time Associated Diagnosis Comments EXCEPTION TO STANDARD PRACTICE, PATHOLOGIST INTERPRETATION Routine 12/11/2024 1:13 PM EDT Port-A-Cath in place documented in this encounter Results * Exception to Standard Practice, Pathologist Interpretation (12/11/2024 1:13 PM EDT) Clinical Diagnosis, Exception to Standard Practice MDS 12/12/2024 10:36 AM EDT BLOOD BANK Interpretation , Exception to Standard Practice Your patient, who is RhD-negative, required transfusion of 1 unit apheresis platelet on 12/11/2024. Considering the available inventory and the necessity [...] specimens and confirmed the diagnosis or interpretation. 12/12/2024 10:36 AM EDT BLOOD BANK Pathologist Signature, Exception to Standard Practice Reviewed by: Sanjuanita Swann MD 12/12/2024 10:36 AM EDT BLOOD BANK LAB CP ASR DISCLAIMER Yes 12/12/2024 10:36 AM EDT BLOOD BANK Blood Bank Lab Only 12/11/2024 1:13 PM EDT 12/12/2024 8:43 AM EDT us Judy Leung MEDICAL TECHNOLOGIST CHIEF, DNP LAB BLOOD BANK TEST ORDE MAGNO Final Result BLOOD BANK [address] [place] [address], documented in this encounter Visit Diagnoses Diagnosis Port-A-Cath in place- Primary Myelodysplasia (myelodysplastic syndrome) (CMS/HCC) Myelodysplastic syndrome, unspecified documented in this encounter Administered Medications Inactive Administered Medications - up to 3 most recent administrations Medication Order MAR Action Action Date Dose Rate Site heparin flush (porcine) 100 UNIT/ML injection 500 Units 500 Units, Intracatheter, Once, 1 dose, On Christina 12/11/24 at 1545, RoutineIndications:Port-A-Cath in place Given 12/11/2024 2:54 PM EDT 500 Units documented in this encounter Additional Health Concerns Assessment Noted Time PHQ-9 Depression Total Score: 0 09/11/19 9:15 AM EST A fall risk assessment has been complete d for the patient 12/11/2024 2:38 PM EDT A Body Mass Index follow-up plan has been documented for the patient 12/11/2024 3:05 PM EDT documented as of this encounter Care Teams Electronics Mechanic Apprentice Relationship Specialty Start Date End Date Zhao Harris MD [address] [place] [address] PCP - General 12/03/20 documented as of this encounter
--- OUTSIDE RECORDS SUMMARY | 2024-12-16 08:00 | XMS_ITS | Encounter Summary ---
Author Organization [facility] [place] [facility] Address [address] [place] [address] Care Team Providers Care Canned Food Reconditioning Inspector Name Role Phone Zhao Harris MD Primary Care Provider [phone] Reason for Visit * Reason Comments Labs Nurse Visit Encounter Details Date Type Department Care Team ([facility] Contact Info) Description 12/16/2024 8:00 AM EDT Clinical Support PAV CC Hematology/BMT and Cellular Therapy Program [address] [place] [address] [place] [address] Social History Tobacco Use Types Packs/Day Years [...] drink first t manav in the morning (EYE-ACCOUNTING TUTOR) to steady your nerves or to get [...] [facility] Contact Info) Description 02/02/2025 9:30 AM EDT Appointment PAV A Interventional Radiology [address] [place] [address] 02/10/2025 8:30 AM EDT Clinical Support PAV CC Hematology/BMT and Cellular Therapy Program [address] [phone] 02/10/2025 9:00 AM EDT Office Visit PAV Hematology/BMT and Cellular Therapy Program [address] [phone] Elaina Boss, PA 800 [facility] [address] [place] [address] 02/10/2025 10:30 AM EDT Appointment [facility] Infusion [facility] 1 [address] [place] [address] 02/11/2025 2:00 PM EDT Appointment [facility] Infusion [facility] 1 [address] [place] [address] 02/12/2025 2:00 PM EDT Appointment [facility] Infusion [facility] 1 [address] [place] [address] 02/13/2025 2:00 PM EDT Appointment [facility] Infusion [facility] 1 [address] [place] [address] 02/14/2025 2:00 PM EDT Appointment [facility] Infusion [facility] 1 [address] [place] [address] 03/10/2025 8:30 AM EDT Clinical Support PAV CC Hematology/BMT and Cellular Therapy Program [address] [place] [address] 03/10/2025 9:00 AM EDT Office Visit P[facility] CC Hematology/BMT and Cellular Therapy Program 750 [facility] [place] [phone] Isaura Wynn, BILLING MACHINE OPERATOR 800 [facility] [address] [place] [address] 03/10/2025 11:20 AM EDT Office Visit Pav CC Head, Neck & Respiratory 800 [facility], 2nd [place] [phone] Elsa Razo, BILLING MACHINE OPERATOR [address] [place] [phone] documented as of this encounter Visit Diagnoses Not on filedocumented in this encounter Additional Health Concerns Assessment Noted Time PHQ-9 Depression Total Score: 0 09/11/19 25 9:15 AM EST A fall risk assessment has been complete d for the patient 12/16/2024 10:49 AM EDT A Body Mass Index follow-up plan has been documented for the patient 12/16/2024 12:23 PM EDT documented as of this encounter Care Teams Canned Food Reconditioning Inspector Relationship Specialty Start Date End Date Zhao Harris MD [address] [place] [phone] PCP - General 12/03/20 documented as of this encounter
--- OUTSIDE RECORDS SUMMARY | 2024-12-16 08:30 | XMS_ITS | Encounter Summary ---
Author Organization [facility] Address [address] [place] [address] Care Team Providers Care Card Punching Machine Operator Name Role Phone Zhao Harris MD Primary Care Provider [phone] Reason for Referral * Genetic Testing (Routine) - Authorized Specialty Diagnoses / Procedures Referred By Justice t Referred To Contact Lab Diagnoses Myelodysplasia (myelodysplastic syndrome) (CMS/HCC) Procedures Leukemia/Lymphoma - Immunophenotyping by Flow Cytometry Virgen Vargas MD [address] [facility] [address] [address] Phone: tel: fax: Referral ID Status Reason Start Date Expiration Date V isits Requested Visits Authorized [id number] Authorized 12/18/2024 06/19/2026 1 1 * Genetic Testing (Routine) - Authorized Specialty Diagnoses / Procedures [facility] Referred To Contact Lab Diagnoses Myelodysplasia (myelodysplastic syndrome) (CMS/HCC) Procedures Bone marrow exam Virgen Vargas MD [address] [facility] [address] [address] Phone: tel: fax: Referral ID Status Reason Start Date Expiration Date V isits Requested Visits Authorized [id number] Authorized 12/18/2024 06/19/2026 1 1 Reason for Visit * Reason Comments Acute Myeloid Leukemia Encounter Details Date Type Department Care Team (Latest Contact Info) Description 12/16/2024 8:30 AM EDT Office Visit [facility] CC Hematology/BMT and Cellular Therapy Program [address] [facility] [place] [address] Isaura Wynn, TRADE MARK EXAMINER [address] [facility] [address] [place] [phone] Myelodysplasia (myelodysplastic syndrome) (CMS/HCC) (Primary Dx) Social [...] drink first t manav in the morning (EYE-HOTEL RECREATIONAL FACILITIES MANAGER) to steady your nerves or to [...] Notes * Progress Notes - Isaura Wynn, TRADE MARK EXAMINER - 12/16/2024 8:30 AM EDT HEMATOLOGY ONCOLOGY [...] a preserved mata-T cell profile with a CD4:NJ5znbwm of 2.7:1. Polyclonal B-cells (3%) and a small plasma cell population (0.6%) were also identified. Cytogenetics: Normal. Molecular Testing: PCR for NPM1 and FLT3 mutations are negative. 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 The third, and most promising, option would be enrollment in a clinical trial, ideally one that targets TP53- mutant disease or incorporates novel agents. Unfortunately, there are no active trials available locally or at [facility], but I have reached out to Dr. Fernandes at [facility] to explore any opportunities there. [...] daily., Disp: 90 tablet, Rfl: 3 HYDROcodone-acetaminophen ([place]) 5-325 MG tablet, Take 1 tablet by [...] History: N/A Plan: Venetoclax rx sent to [facility]. Refills due monthly. Patient will return to clinic in 4 weeks. Will follow-up at that time. documented in this encounter Plan of Treatment Upcoming Encounters Date Type Department Care Team ([facility] st Contact Info) Description 02/02/2025 9:30 AM EDT Appointment [facility] A Interventional Radiology [address] [place] [address] 02/10/2025 8:30 AM EDT Clinical Support [facility] Hematology/BMT and Cellular Therapy Program [address] [address] 02/10/2025 9:00 AM EDT Office Visit [facility] Hematology/BMT and Cellular Therapy Program [address] [address] Elaina Boss PA 800 [facility] [address] [place] [phone] 02/10/2025 10:30 AM EDT Appointment [facility] Infusion [facility] [address] [place] [address] 02/11/2025 2:00 PM EDT Appointment [facility] [address] [place] [address] 02/12/2025 2:00 PM EDT Appointment [facility] [address] [place] [address] 02/13/2025 2:00 PM EDT Appointment [facility] [address] [place] [address] 02/14/2025 2:00 PM EDT Appointment [facility] [address] [place] [address] 03/10/2025 8:30 AM EDT Clinical Support [facility] CC Hematology/BMT and Cellular Therapy Program [address] [address] 03/10/2025 9:00 AM EDT Office Visit [facility] Hematology/BMT and Cellular Therapy Program [address] [address] Isaura Wynn, TRADE MARK EXAMINER [address] [facility] [address] [place] [address] 03/10/2025 11:20 AM EDT Office Visit Pav CC Head, Neck & Respiratory [address] [facility] [address] [place] [address] Elsa Razo, TRADE MARK EXAMINER [address] [place] [phone] documented as of this encounter Procedures Procedure Name Priority Date/Time Associated Diagnosis Comments GROUP A STREPTOCOCCUS BY PCR Routine 12/16/2024 9:40 AM EDT Myelodysplasia (myelodysplastic syndrome) ([facility]) STREPTOCOCCUS CULTURE Routine 12/16/2024 9:40 AM EDT Myelodysplasia (myelodysplastic syndrome) ([facility]) CBC WITH AUTO DIFFERENTIAL Routine 12/16/2024 8:10 AM EDT Myelodysplasia (myelodysplastic syndrome) ([facility]) URIC ACID, PLASMA Routine 12/16/2024 8:1 0 AM EDT Myelodysplasia (myelodysplastic syndrome) ([facility]) PHOSPHORUS, PLASMA Routine 12/16/2024 [...] Clinical Indication AML 01/07/2025 10:18 AM EDT [facility] Flow Cytometry Interpretation APPROXIMATELY 16% MYELOID BLASTS; EXPRESSING CD34, CD117, CD13, CD33, HLA-DR, PARTIAL CD7, PARTIAL CD123, VARIABLE CD38, AND MODERATE CD45, SEE COMMENT, BONE MARROW ASPIRATE. 01/07/2025 10:18 AM EDT [facility] Comments Specimen viability is 79%. [...] disease. Final interpretation requires morphologic correlation (BM [id number]). The following antibodies were used in this analysis: CD45, CD2, CD3, CD4, CD5, CD7, CD8, CD10, CD13, CD14, CD15, CD16, CD19, CD20, CD33, CD34, CD38, CD56, CD117, HLA-DR, kappa surface light chains, lambda surface light chains, CD123 01/07/2025 10:18 AM EDT [facility] Disclaimer This test was developed and its performance characteristics determined by the Immuno-Molecular Pathology Laboratory at the [facility]. It has not been cleared or approved [...] clinical laboratory testing. 01/07/2025 10:18 AM EDT [facility] Pathologist Signature Reviewed by: Tessie Peralta MD 01/07/2025 10:18 AM EDT [facility] MRD Indicated Test Not Indicated 10:18 AM EDT [facility] Bone Marrow Specimen from bone marrow obtained by aspiration / Unknown Non-blood Collection / Unknown 01/06/2025 9:48 AM EDT 01/06/2025 11:20 AM EDT us Virgen Vargas MD LAB FLOW CYTOMETRY ORDERABLES Final Result [facility] [address] [place] [address] * Bone marrow exam (01/06/2025 9:48 AM EDT) Case Report Bone Marrow Case: [id number] Authorizing Provider: Virgen Vargas MD Collected: 01/06/2025 0948 Ordering Location: [facility] Hematology/BMT and Received: 01/06/2025 1108 Cellular Therapy Program Pathologist: Tessie Peralta MD Specimens: A) - Bone Marrow Aspirate, left B) - Bone Marrow Biopsy, left C) - Peripheral Blood for Bone Marrow 6:13 PM EDT [facility] Final Diagnosis BONE MARROW, LEFT POSTERIOR ILIAC CREST, (PERIPHERAL SMEAR, ASPIRATE SMEARS, AND CORE BIOPSY): - MILDLY HYPOCELLULAR BONE MARROW WITH ERYTHROID HYPERPLASIA, MARKEDLY REDUCED GRANULOPOIESIS, PERSISTENT DYSPOIESIS AND 10% BLASTS, SEE COMMENT. 6:13 PM EDT [facility] at 1813 EDT Comment The marrow cellularity is composed of erythroid cells with markedly reduced granulopoiesis and decreased megakaryocytes. Persistent trilineage dyspoiesis is noted. The blast percentages are higher by flow cytometry analysis as the majority of marrow cellularity consists of erythroid precursors that are removed by flow cytometry. 5 6:13 PM EDT [facility] Clinical Information AML 12/22 6:13 PM EDT [facility] CBC and Differential PERIPHERAL [...] blasts are identified. 5 6:13 PM EDT [facility] Bone Marrow Differential BONE MARROW DIFFERENTIAL: 400 cells Normal Patient Neutrophils 15-50 0 Metamyelocytes 4-19 1 Myelocytes 1-18 2 Promyelocytes 1-8 1 Blasts 0-2 10 Monocytes 0-5 0 Erythroid 16-38 73 Lymphocytes 3-24 4 Eosinophils 0-6 1 Basophils 0-2 0 Plasma cells 0-4 8 Other 5 6:13 PM EDT [facility] Bone Marrow Aspirate and Biopsy [...] trabeculae are unremarkable. 5 6:13 PM EDT [facility] Special and Immunohistochemical Stains Immunohistochemica [...] developed by and are performed at the [facility], [address] [place] [address]. All tests reported here, except those addressing [...] on decalcified specimens. 5 6:13 PM EDT [facility] Flow Cytometry Interpretation APPROXIMATELY 16% MYELOID BLASTS; EXPRESSING CD34, CD117, CD13, CD33, HLA-DR, PARTIAL CD7, PARTIAL CD123, VARIABLE CD38, AND MODERATE CD45, SEE COMMENT, BONE MARROW ASPIRATE ([id number]) 6:13 PM EDT [facility] Gross Description B. LEFT A single specimen is received in formalin labeled bone marrow biopsy left posterior iliac crest and consists of 2 piece(s) of tissue measuring 0.8/0.2 cm in length 0.2 cm in diameter. The specimen is submitted in to Histology for decalcification and routine processing. Cold Time: <1m 6:13 PM EDT [facility] Note: A resident was involved in the service. I attest I examined the relevant preparations for the specimens and confirmed the diagnosis or interpretation. 6:13 PM EDT [facility] Bone Marrow Peripheral blood [...] MD LAB PATHOLOGY ORDERABLES Terri lara Result [facility] [address] [place] [address] * Streptococcus Culture (12/16/2024 9:40 AM EDT) Culture Reading Strep A No Streptococcus pyogenes or Streptococcus dysgalactiae isolated 12/17/2024 2:28 PM EDT [facility] Swab Pharyngeal structure / Unknown Non-blood Collection / Unknown 12/16/2024 9:40 AM EDT 12/16/2024 10:10 AM EDT Isaura L Meikel TRADE MARK EXAMINER LAB MICROBIOLOGY - GENERAL ORD ERABLES Final Result Performing Organization Address [facility] de Phone Number [facility] [address] [place] [address] * Group A Streptococcus by PCR (12/16/2024 9:40 AM EDT) Group A Streptococcus PCR Result Not Detected Not Detected 12/16/2024 11:53 AM EDT [facility] Swab Pharyngeal structure / Unknown Non-blood Collection / Unknown 12/16/2024 9:40 AM EDT 12/16/2024 10:10 AM EDT us Isaura Wynn APRN LAB MICROBIOLOGY - GENERAL ORD ERABLES Final Result Performing Organization Address [facility] [place] [address] * (ABNORMAL) Uric acid (12/16/2024 8:10 AM EDT) Uric Acid, Plasma 3.0(L) 3.7 - 8.0 mg/dL 12/16/2024 8:58 AM EDT [facility] Blood Venous blood specimen / Unknown Venipuncture / Unknown 12/16/2024 8:10 AM EDT 12/16/2024 8:27 AM EDT us Isaura Wynn TRADE MARK EXAMINER LAB BLOOD ORDERABLES Final Res ult Performing Organization Address [facility] de Phone Number [facility] [address] [place] [address] * Phosphorus, Plasma (12/16/2024 8:10 AM EDT) Phosphorus, Plasma 3.4 2.5 - 4.5 mg/dL 12/16/2024 8:58 AM EDT [facility] Blood Venous blood specimen / Unknown Venipuncture / Unknown 12/16/2024 8:10 AM EDT 12/16/2024 8:27 AM EDT us Isaura Wynn TRADE MARK EXAMINER LAB BLOOD ORDERABLES Final Res ult Performing Organization Address City/[facility] Co de Phone Number [facility] [address] [place] [address] * Magnesium, Plasma (12/16/2024 8:10 AM EDT) Magnesium, Plasma 2.4 1.9 - 2.4 mg/dL 12/16/2024 8:58 AM EDT [facility] Blood Venous blood specimen / Unknown Venipuncture / Unknown 12/16/2024 8:10 AM EDT 12/16/2024 8:27 AM EDT us Isaura L Meikel TRADE MARK EXAMINER LAB BLOOD ORDERABLES Final Res ult Performing Organization Address [facility] Co de Phone Number [facility] [address] [place] [address] * Lactate Dehydrogenase, Plasma (12/16/2024 8:10 AM EDT) LDH, Plasma 230 116 - 250 U/L 12/16/2024 8:58 AM EDT [facility] Blood Venous blood specimen / Unknown Venipuncture / Unknown 12/16/2024 8:10 AM EDT 12/16/2024 8:27 AM EDT us Isaura L Meikel TRADE MARK EXAMINER LAB BLOOD ORDERABLES Final Res ult Performing Organization Address [facility] Co de Phone Number [facility] [address] [place] [address] * (ABNORMAL) Comprehensive Metabolic Panel, Plasma (12/16/2024 8:10 AM EDT) Glucose, Plasma 110(H) 74 - 99 mg/dL 12/16/2024 8:58 AM EDT [facility] BUN, Plasma 10 8 - 23 mg/dL 12/16/2024 8:58 AM EDT [facility] Creatinine, Plasma 0.79 0.70 - 1.20 mg/dL 12/16/2024 8:58 AM EDT [facility] BUN/Creatinine Ratio 13 12/16/2024 8:58 AM EDT [facility] Sodium, Plasma 140 136 - 145 mmol/L 12/16/2024 8:58 AM EDT [facility] Potassium, Plasma 4.2 3.6 - 4.9 mmol/L 12/16/2024 8:58 AM EDT [facility] Chloride, Plasma 109(H) 97 - 107 mmol/L 12/16/2024 8:58 AM EDT [facility] CO2, Plasma 21(L) 22 - 29 mmol/L 12/16/2024 8:58 AM EDT [facility] Anion Gap 10 6 - 16 mmol/L 12/16/2024 8:58 AM EDT [facility] Total Calcium, Plasma 8.9 8.9 - 10.2 mg/dL 12/16/2024 8:58 AM EDT [facility] Total Protein 6.8 6.3 - 7.9 g/dL 12/16/2024 8:58 AM EDT [facility] Albumin, Plasma 4.0 3.5 - 5.2 g/dL 12/16/2024 8:58 AM EDT [facility] AST, Plasma 23 10 - 50 U/L 12/16/2024 8:58 AM EDT [facility] ALT, Plasma 25 10 - 50 U/L 12/16/2024 8:58 AM EDT [facility] Alkaline Phosphatase, Plasma 95 40 - 115 U/L 12/16/2024 8:58 AM EDT [facility] Total Bilirubin, Plasma 0.6 0.2 - 1.1 mg/dL 12/16/2024 8:58 AM EDT [facility] eGFRcr 96.2 mL/min/1.7 3m*2 12/16/2024 8:58 AM EDT [facility] Comment:Reported eGFRcr in m L/min/1.73m2 is based the CKD-EPI 2020 equation that does not use a race coefficient. Blood Venous blood specimen / Unknown Venipuncture / Unknown 12/16/2024 8:10 AM EDT 12/16/2024 8:27 AM EDT us Isaura Wynn APRN LAB BLOOD ORDERABLES Final Res ult [facility] [address] [place] [address] * (ABNORMAL) CBC and Differential (12/16/2024 8:10 AM EDT) WBC Count 0.59(LL) 3.70 - 10.30 10*3/uL LAB HEMATOLOGY METHOD 12/16/2024 10:15 AM EDT [facility] RBC Count 2.48(L) 4.60 - 6.10 10*6/uL LAB HEMATOLOGY METHOD 12/16/2024 10:15 AM EDT [facility] HGB 8.0(L) 13.7 - 17.5 g/dL LAB HEMATOLOGY METHOD 12/16/2024 10:15 AM EDT [facility] HCT 22.1(L) 40.0 - 51.0 % LAB HEMATOLOGY METHOD 12/16/2024 10:15 AM EDT [facility] Platelet Count <5(LL) 155 - 369 10*3/uL LAB HEMATOLOGY METHOD 12/16/2024 10:15 AM EDT [facility] MCV 89 79 - 98 fL LAB HEMATOLOGY METHOD 12/16/2024 10:15 AM EDT [facility] MCH 32.3(H) 26.0 - 32.0 pg LAB HEMATOLOGY METHOD 12/16/2024 10:15 AM EDT [facility] MCHC 36.2(H) 30.7 - 35.5 g/dL LAB HEMATOLOGY METHOD 12/16/2024 10:15 AM EDT [facility] RDW 16.3(H) 11.5 - 14.5 % LAB HEMATOLOGY METHOD 12/16/2024 10:15 AM EDT [facility] MPV LAB HEMATOLOGY METHOD 12/16/2024 10:15 AM EDT [facility] Comment:Not Measured nRBC 0.0 <=0.0 per 100 WBCs LAB HEMATOLOGY METHOD 12/16/2024 10:15 AM EDT [facility] Differential Type Automated LAB HEMATOLOGY METHOD 12/16/2024 10:15 AM EDT [facility] Neutrophils % 5 % LAB HEMATOLOGY METHOD 12/16/2024 10:15 AM EDT [facility] Lymphocytes % 90 % LAB HEMATOLOGY METHOD 12/16/2024 10:15 AM EDT [facility] Monocytes % 5 % LAB [...] Final Res ult [facility] [address] [place] [address] documented in this encounter Visit Diagnoses Diagnosis [...] documented as of this encounter Care Teams Card Punching Machine Operator Relationship Specialty Start Date End Date Zhao Harris MD [address] [place] [address] PCP - General 12/03/20 documented as of this encounter
--- OUTSIDE RECORDS SUMMARY | 2024-12-16 10:00 | XMS_ITS | Encounter Summary ---
Author Organization [facility] Address [address] [place] [address] Care Team Providers Care Octave Board Racker Name Role Phone Zhao Harris MD Primary Care Provider + [phone] Reason for Visit * Episode Based Medications (Routine) - Closed Specialty Diagnoses / Procedures Referred By Justice mcgee Referred To Contact Diagnoses Myelodysplasia (myelodysplastic syndrome) (CMS/HCC) Procedures Azacitidine Daily x 7 / Venetoclax Every 28 Days Virgen Vargas MD 800 [facility] [address] [address] Phone: tel: fax: Virgen Vargas MD [address] [address] Phone: tel: fax: Referral ID Status Reason Start Date Expiration Date Visits Re quested Visits Authorized [id number] Closed 10/20/2024 04/21/2026 1 91 Encounter Details Date Type Department Care Team (Latest Contact Info) Description 12/16/2024 10:00 AM EDT - 12/16/2024 10:59 AM EDT Hospital Encounter [facility] H Infusion 800 [place] [phone] Myelodysplasia (myelodysplastic syndrome) (CMS/HCC) (Primary Dx); Thrombocytopenia [...] drink first t manav in the morning (EYE-ARMED SECURITY GUARD) to steady your nerves or to get [...] 5 MG tabletIndications :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, unspecified vessel or [...] AM EDT Appointment PAV A Interventional Radiology [address] [place] [phone] 02/10/2025 8:30 AM EDT Clinical Support P[facility] Hematology/BMT and Cellular Therapy Program [address] [address] 02/10/2025 9:00 AM EDT Office Visit [facility] Hematology/BMT and Cellular Therapy Program [address] [place] [address] Elaina Boss, PA 800 [facility] [address] [place] [phone] 02/10/2025 10:30 AM EDT Appointment [facility] 1 [address] [place] [address] 02/11/2025 2:00 PM EDT Appointment [facility] 1 [address] [place] [address] 02/12/2025 2:00 PM EDT Appointment [facility] 1 [address] [place] [address] 02/13/2025 2:00 PM EDT Appointment [facility] 1 [address] [place] [address] 02/14/2025 2:00 PM EDT Appointment [facility] 1 [address] [place] [address] 03/10/2025 8:30 AM EDT Clinical Support [facility] Hematology/BMT and Cellular Therapy Program [address] [address] 03/10/2025 9:00 AM EDT Office Visit [facility] Hematology/BMT and Cellular Therapy Program [address] [place] [address] Isaura Wynn, ESTRELLA 800 [facility] [address] [address] 03/10/2025 11:20 AM EDT Office Visit Pav Head, Neck & Respiratory 800 [facility], 2nd [place] [address] Elsa Razo, LOG CHIPPER [address] [place] [address] documented as of this encounter [...] LAB HEMATOLOGY METHOD 12/16/2024 1:00 PM EDT [facility] Blood Venous blood specimen / Unknown Venipuncture / Unknown 12/16/2024 12:23 PM EDT 12/16/2024 12:51 PM EDT us Virgen Vargas MD LAB BLOOD ORDERABLES Final Re sult [facility] [address] [place] [address] * Transfuse platelets (12/16/2024 12:21 PM EDT) Kayli Ospina PA BLOOD TRANSFUSION ORDERA BLES Final Result * Transfuse platelets: 1 Units (12/16/2024 12:21 PM EDT) Kayli Ospina PA BLOOD TRANSFUSION [...] ORDERABLE S Final Result Performing Organization Address City/State/[facility] Co de Phone Number BLOOD BANK 800 [place] [address], * Exception to Standard Practice, Pathologist Interpretation [...] 10:59 AM EDT 12/18/2024 9:06 AM EDT us Juwan Horton MD LAB BLOOD BANK TEST ORDERAB LES Final Result BLOOD BANK 800 [place] [address], [place] * Prepare Leukocyte Reduced Platelets: 1 Units (12/16/2024 10:54 AM EDT) Product Code C3845R18 CH BLOO D BANK Dispense Status Transfused BLOOD BANK Blood Expiration Date BLOOD BANK Unit Number [id number] CH B LOOD BANK Product Blood Type 8400 BLOOD BANK Blood Type AB+ BLOOD BANK Blood Venous blood specimen / Unknown us Kayli CHIU BLOOD BANK PRODUCT ORDER VIKAS Final Result Performing Organization Address [facility] Co de Phone Number BLOOD BANK 800 [place] [address], * Prepare Leukocyte Reduced RBC: 1 Units, Irradiated (12/16/2024 10:54 AM EDT) Product Code T8705H16 CH BLOO D BANK Dispense Status Transfused BLOOD BANK Blood Expiration Date [id number] BLOOD BANK Unit Number [id number] CH B LOOD BANK Product Blood Type 9500 BLOOD BANK Blood Type O- CH BLOOD BANK Crossmatch Compatible CH BLOOD BANK Other Kayli CHIU BLOOD BANK PRODUCT ORDER VIKAS Final Result Performing Organization Address City/[facility]/ZIP Co de Phone Number BLOOD BANK 800 [place] [address], documented in this encounter Visit Diagnoses Diagnosis [...] documented as of this encounter Care Teams Octave Board Racker Relationship Specialty Start Date End Date Zhao Harris MD [address] [phone] PCP - General 12/03/20 documented as of this encounter
--- OUTSIDE RECORDS SUMMARY | 2024-12-16 11:00 | XMS_ITS | Encounter Summary ---
Author Organization Healthcare Address [address] [place] [address] Care Team Providers Care Technology Education Teacher Name Role Phone Zhao Harris MD Primary Care Provider [phone] Encounter Details Date Type Department Care Team (Latest Contact Info) Description 12/16/2024 11:00 AM EDT - 12/16/2024 11:59 PM EDT Hospital Encounter [facility]fusion [address] [place] [address] Myelodysplasia (myelodysplastic syndrome) (CMS/HCC) (Primary Dx) Discharge [...] drink first t manav in the morning (EYE-TALLIER) to steady your nerves or to get [...] 5 MG tabletIndications :Coronary artery disease involving [place] heart with angina pectoris, unspecified vessel or lesion type (CMS/HCC),Hyperte nsion, unspecified type Take 1 tablet (5 mg) by mouth daily. 90 tablet 3 09/11/2024 HYDROcodone-aceta minophen ([place]) 5-325 MG tablet Take 1 tablet by [...] MG SL tabletIndications :Coronary artery disease involving [place] heart with angina pectoris, unspecified vessel or [...] Appointment [facility] A Interventional Radiology [address] [place] [address] 02/10/2025 8:30 AM EDT Clinical Support [facility] Hematology/BMT and Cellular Therapy Program [address] [place] [address] [place] [address] 02/10/2025 9:00 AM EDT Office Visit [facility] Hematology/BMT and Cellular Therapy Program [address] [place] [address] [place] [phone] Elaina Boss, ARAM 800 [facility] Cancer [address] [address] 02/10/2025 10:30 AM EDT Appointment [facility] 1 [address] [place] [address] 02/11/2025 2:00 PM EDT Appointment [facility] 1 [address] [place] [address] 02/12/2025 2:00 PM EDT Appointment [facility] 1 [address] [place] [address] 02/13/2025 2:00 PM EDT Appointment [facility] 1 [address] [place] [address] 02/14/2025 2:00 PM EDT Appointment [facility] 1 [address] [place] [address] 03/10/2025 8:30 AM EDT Clinical Support [facility] Hematology/BMT and Cellular Therapy Program [address] [phone] 03/10/2025 9:00 AM EDT Office Visit [facility] Hematology/BMT and Cellular Therapy Program [address] [phone] Isaura Wynn, VAMP STRAP IRONER 800 [facility] [address] [phone] 03/10/2025 11:20 AM EDT Office Visit [facility] Head[facility] Neck & Respiratory 800 [facility], 2nd [place] [address] Elsa Razo, VAMP STRAP IRONER 800 [place] [phone] documented as of this encounter Visit Diagnoses [...] documented as of this encounter Care Teams Technology Education Teacher Relationship Specialty Start Date End Date Zhao Harris MD [address] [place] [address] PCP - General 12/03/20 documented as of this encounter
--- OUTSIDE RECORDS SUMMARY | 2024-12-17 08:23 | XMS_ITS | Encounter Summary ---
Author Organization [facility] Address [address] [place] [address] Care Team Providers Care Brand Representative Name Role Phone Zhao Harris MD Primary Care Provider + [phone] Reason for Visit * Episode Based Medications (Routine) - Closed Specialty Diagnoses / Procedures Referred By Justice mcgee Referred To Contact Diagnoses Myelodysplasia (myelodysplastic syndrome) (CMS/HCC) Procedures Azacitidine Daily x 7 / Venetoclax Every 28 Days Virgen Vargas MD 800 [facility] [address] [address] Phone: tel: fax: Virgen Vargas MD [address] [address] Phone: tel: fax: Referral ID Status Reason Start Date Expiration Date Visits Re quested Visits Authorized [id number] Closed 10/20/2024 04/21/2026 1 91 Encounter Details Date Type Department Care Team (Latest Contact Info) Description 12/17/2024 8:23 AM EDT - 12/17/2024 11:59 PM EDT Hospital Encounter [facility] Infusion 800 [place] [phone] Myelodysplasia (myelodysplastic syndrome) (CMS/HCC) (Primary Dx); Thrombocytopenia [...] drink first t manav in the morning (EYE-PR SPECIALIST) to steady your nerves or to [...] 5 MG tabletIndications :Coronary artery disease involving [place] heart with angina pectoris, unspecified vessel or lesion type (CMS/HCC),Hyperte nsion, unspecified type Take 1 tablet (5 mg) by mouth daily. 90 tablet 3 09/11/2024 HYDROcodone-aceta minophen ([place]) 5-325 MG tablet Take 1 tablet by [...] MG SL tabletIndications :Coronary artery disease involving [place] heart with angina pectoris, unspecified vessel or [...] Appointment [facility] A Interventional Radiology [address] [place] [address] 02/10/2025 8:30 AM EDT Clinical Support [facility] Hematology/BMT and Cellular Therapy Program [address] [address] 02/10/2025 9:00 AM EDT Office Visit [facility] Hematology/BMT and Cellular Therapy Program [address] [address] Elaina Boss, ARAM 800 [facility] [address] [place] [phone] 02/10/2025 10:30 AM EDT Appointment [facility] Infusion [facility] 1 [address] [place] [address] 02/11/2025 2:00 PM EDT Appointment [facility] In[facility] 1 [address] [place] [address] 02/12/2025 2:00 PM EDT Appointment [facility] Infusion [facility] 1 [address] [place] [address] 02/13/2025 2:00 PM EDT Appointment [facility] Infusion Clinic 1 [address] [place] [address] 02/14/2025 2:00 PM EDT Appointment [facility] Infusion [facility] 1 [address] [place] [address] 03/10/2025 8:30 AM EDT Clinical Support [facility] Hematology/BMT and Cellular Therapy Program [address] [address] 03/10/2025 9:00 AM EDT Office Visit [facility] Hematology/BMT and Cellular Therapy Program [address] [address] Isaura Wynn, SECOND WATCH SERGEANT 800 [facility] [address] [place] [phone] 03/10/2025 11:20 AM EDT Office Visit [facility] Head, Neck & Respiratory 800 [facility], 2nd [place] [address] Elsa Razo, SECOND WATCH SERGEANT 800 [place] [phone] documented as of this encounter Results * [...] Sun12/17/24 at 0915, RoutineIndications:Myelodyspla haim (myelodysplastic syndrome) ([facility]/HCC) Given 12/17/2024 8:54 AM EDT 16 mg [...] documented as of this encounter Care Teams Brand Representative Relationship Specialty Start Date End Date Zhao Harris MD [address] [place] [address] PCP - General 12/03/20 documented as of this encounter
--- OUTSIDE RECORDS SUMMARY | 2024-12-18 08:30 | XMS_ITS | Encounter Summary ---
Author Organization [facility] Address [address] [place] [address] Care Team Providers Care Experimental Worker Name Role Phone Zhao Harris MD Primary Care Provider [phone] Reason for Visit * Episode Based Medications (Routine) - Closed Specialty Diagnoses / Procedures Referred By Justice [email or web address] Referred To Contact Diagnoses Myelodysplasia (myelodysplastic syndrome) (CMS/HCC) Procedures Azacitidine Daily x 7 / Venetoclax Every 28 Days Virgen Vargas MD [address] [address] Phone: tel: fax: Virgen Vargas MD [address] [address] Phone: tel: fax: Referral ID Status Reason Start Date Expiration Date Visits Re quested Visits Authorized [id number] Closed 10/20/2024 04/21/2026 1 91 Encounter Details Date Type Department Care Team (Latest Contact Info) Description 12/18/2024 8:30 AM EDT - 12/18/2024 9:45 AM EDT Hospital Encounter PAV H Infusion [address] [place] [phone] Myelodysplasia (myelodysplastic syndrome) (CMS/HCC) (Primary Dx); Thrombocytopenia [...] drink first t manav in the morning (EYE-ATTENDANT COIN OPERATED LAUNDRY) to steady your nerves or to get [...] 5 MG tabletIndications :Coronary artery disease involving [place] heart with angina pectoris, unspecified vessel or lesion type (CMS/HCC),Hyperte nsion, unspecified type Take 1 tablet (5 mg) by mouth daily. 90 tablet 3 09/11/2024 HYDROcodone-aceta minophen ([place]) 5-325 MG tablet Take 1 tablet by [...] MG SL tabletIndications :Coronary artery disease involving [place] heart with angina pectoris, unspecified vessel or [...] Appointment PAV A Interventional Radiology [address] [place] [address] 02/10/2025 8:30 AM EDT Clinical Support PAV CC Hematology/BMT and Cellular Therapy Program [address] [address] 02/10/2025 9:00 AM EDT Office Visit PAV Hematology/BMT and Cellular Therapy Program [address] [address] Elaina Boss, PA 800 [facility] [address] [place] [address] 02/10/2025 10:30 AM EDT Appointment [facility] Infusion [facility] 1 [address] [place] [address] 02/11/2025 2:00 PM EDT Appointment [facility]fusion [facility] 1 [address] [place] [address] 02/12/2025 2:00 PM EDT Appointment [facility]fusion [facility] 1 [address] [place] [address] 02/13/2025 2:00 PM EDT Appointment [facility]fusion [facility] 1 [address] [place] [address] 02/14/2025 2:00 PM EDT Appointment [facility] Infusion [facility] 1 [address] [place] [address] 03/10/2025 8:30 AM EDT Clinical Support PAV Hematology/BMT and Cellular Therapy Program [address] [address] 03/10/2025 9:00 AM EDT Office Visit PAV Hematology/BMT and Cellular Therapy Program [address] [address] Isaura Wynn, GOAT DRIVER 800 [facility] [address] [phone] 03/10/2025 11:20 AM EDT Office Visit Pav Head, Neck & Respiratory 800 [facility], 2nd [place] [address] Elsa Razo B, GOAT DRIVER [address] [place] [address] documented as of this [...] LAB HEMATOLOGY METHOD 12/18/2024 11:06 AM EDT [facility] Blood Blood sample taken from central line / Unknown Venipuncture / Unknown 12/18/2024 10:55 AM EDT 12/18/2024 11:03 AM EDT us Virgen Vargas MD LAB BLOOD ORDERABLES Final Re sult [facility] [address] [place] [address] * Transfuse platelets (12/18/2024 10:52 AM EDT) Kayli Daly Bhavesh [facility] BLOOD TRANSFUSION ORDERA BLES Final Result * Transfuse platelets: 1 Units (12/18/2024 10:52 AM EDT) Kayli Daly Bhavesh [facility] BLOOD TRANSFUSION ORDERA BLES Final Result * Prepare Leukocyte Reduced Platelets: 1 Units (12/18/2024 9:45 AM EDT) Product Code [id number] BLOO D BANK Dispense Status Transfused BLOOD BANK Blood Expiration Date [id number] BLOOD BANK Unit Number [id number] CH B LOOD BANK Product Blood Type 6200 BLOOD BANK Blood Type A+ BLOOD BANK Blood Venous blood specimen / Unknown Kayli Daly Bhavesh [facility] BLOOD BANK PRODUCT ORDER VIKAS Final Result Performing Organization Address City/State/[facility] de Phone Number BLOOD BANK [address] * (ABNORMAL) Comprehensive Metabolic Panel, Plasma (12/18/2024 9:14 AM EDT) Glucose, Plasma 108(H) 74 - 99 mg/dL 12/18/2024 9:51 AM EDT [facility] BUN, Plasma 10 8 - 23 mg/dL 12/18/2024 9:51 AM EDT [facility] Creatinine, Plasma 0.80 0.70 - 1.20 mg/dL 12/18/2024 9:51 AM EDT [facility] BUN/Creatinine Ratio 13 12/18/2024 9:51 AM EDT [facility] Sodium, Plasma 139 136 - 145 mmol/L 12/18/2024 9:51 AM EDT [facility] Potassium, Plasma 4.4 3.6 - 4.9 mmol/L 12/18/2024 9:51 AM EDT [facility] Chloride, Plasma 108(H) 97 - 107 mmol/L 12/18/2024 9:51 AM EDT [facility] CO2, Plasma 22 22 - 29 mmol/L 12/18/2024 9:51 AM EDT [facility] Anion Gap 9 6 - 16 mmol/L 12/18/2024 9:51 AM EDT [facility] Total Calcium, Plasma 8.8(L) 8.9 - 10.2 mg/dL 12/18/2024 9:51 AM EDT [facility] Total Protein 6.8 6.3 - 7.9 g/dL 12/18/2024 9:51 AM EDT [facility] Albumin, Plasma 3.9 3.5 - 5.2 g/dL 12/18/2024 9:51 AM EDT [facility] AST, Plasma 16 10 - 50 U/L 12/18/2024 9:51 AM EDT [facility] ALT, Plasma 16 10 - 50 U/L 12/18/2024 9:51 AM EDT [facility] Alkaline Phosphatase, Plasma 83 40 - 115 U/L 12/18/2024 9:51 AM EDT [facility] Total Bilirubin, Plasma 0.6 0.2 - 1.1 mg/dL 12/18/2024 9:51 AM EDT [facility] eGFRcr 95.8 mL/min/1.7 3m*2 12/18/2024 9:51 AM EDT [facility] Comment:Reported eGFRcr in m L/min/1.73m2 is based the CKD-EPI 2020 equation that does not use a race coefficient. Blood Blood sample taken from central line / Unknown Venipuncture / Unknown 12/18/2024 9:14 AM EDT 12/18/2024 9:20 AM EDT us Virgen Vargas MD LAB BLOOD ORDERABLES Final Re sult [facility] [address] [place] [address] * (ABNORMAL) CBC and differential (12/18/2024 9:14 AM EDT) WBC Count 0.51(LL) 3.70 - 10.30 10*3/uL LAB HEMATOLOGY METHOD 12/18/2024 10:49 AM EDT [facility] RBC Count 2.50(L) 4.60 - 6.10 10*6/uL LAB HEMATOLOGY METHOD 12/18/2024 10:49 AM EDT [facility] HGB 8.1(L) 13.7 - 17.5 g/dL LAB HEMATOLOGY METHOD 12/18/2024 10:49 AM EDT [facility] HCT 21.9(L) 40.0 - 51.0 % LAB HEMATOLOGY METHOD 12/18/2024 10:49 AM EDT [facility] Platelet Count 6(LL) 155 - 369 10*3/uL LAB HEMATOLOGY METHOD 12/18/2024 10:49 AM EDT [facility] MCV 88 79 - 98 fL LAB HEMATOLOGY METHOD 12/18/2024 10:49 AM EDT [facility] MCH 32.4(H) 26.0 - 32.0 pg LAB HEMATOLOGY METHOD 12/18/2024 10:49 AM EDT [facility] MCHC 37.0(H) 30.7 - 35.5 g/dL LAB HEMATOLOGY METHOD 12/18/2024 10:49 AM EDT [facility] RDW 16.7(H) 11.5 - 14.5 % LAB HEMATOLOGY METHOD 12/18/2024 10:49 AM EDT [facility] MPV LAB HEMATOLOGY METHOD 12/18/2024 10:49 AM EDT [facility] Comment:Not Measured nRBC 0.0 <=0.0 per 100 WBCs LAB HEMATOLOGY METHOD 12/18/2024 10:49 AM EDT [facility] Differential Type Automated LAB HEMATOLOGY METHOD 12/18/2024 10:49 AM EDT [facility] Neutrophils % 6 % LAB HEMATOLOGY METHOD 12/18/2024 10:49 AM EDT [facility] Lymphocytes % 90 % LAB HEMATOLOGY METHOD 12/18/2024 10:49 AM EDT [facility] Monocytes % 4 % LAB HEMATOLOGY METHOD 12/18/2024 10:49 AM EDT [facility] Eosinophils % 0 % LAB HEMATOLOGY METHOD 12/18/2024 10:49 AM EDT [facility] Basophils % 0 % LAB HEMATOLOGY METHOD 12/18/2024 10:49 AM EDT [facility] Immature Granulocytes % 0 % LAB HEMATOLOGY METHOD 12/18/2024 10:49 AM EDT [facility] Neutrophils Absolute 0.03(LL) 1.60 - 6.10 10*3/uL LAB HEMATOLOGY METHOD 12/18/2024 10:49 AM EDT [facility] Lymphocytes Absolute 0.46(L) 1.20 - 3.90 10*3/uL LAB HEMATOLOGY METHOD 12/18/2024 10:49 AM EDT [facility] Monocytes Absolute 0.02(L) 0.30 - 0.90 10*3/uL LAB HEMATOLOGY METHOD 12/18/2024 10:49 AM EDT [facility] Eosinophils Absolute 0.00 0.00 - 0.50 10*3/uL LAB HEMATOLOGY METHOD 12/18/2024 10:49 AM EDT [facility] Basophils Absolute 0.00 0.00 - 0.10 10*3/uL LAB HEMATOLOGY METHOD 12/18/2024 10:49 AM EDT [facility] Immature Granulocytes Absolute 0.00 0.00 - 0.06 10*3/uL LAB HEMATOLOGY METHOD 12/18/2024 10:49 AM EDT [facility] Blood Blood sample taken from central line / Unknown Venipuncture / Unknown 12/18/2024 9:14 AM EDT 12/18/2024 9:20 AM EDT Narrative [facility] - 12/18/2024 10:49 AM EDT Therapeutic decision making should be based on absolute values, rather than percentages. us Christina Ramos MD LAB BLOOD ORDERABLES Final Resul t Performing Organization Address City/State/[facility] Co de Phone Number [facility] [address] [place] [address] * Exception to Standard Practice, Pathologist Interpretation [...] ORDERAB LES Final Result Performing Organization Address City/State/[facility] Co de Phone Number BLOOD BANK [address] documented in this encounter Visit Diagnoses [...] documented as of this encounter Care Teams Experimental Worker Relationship Specialty Start Date End Date Zhao Harris MD [address] [place] [address] [place] [address] PCP - General 12/03/20 documented as of this encounter
--- OUTSIDE RECORDS SUMMARY | 2024-12-18 09:46 | XMS_ITS | Encounter Summary ---
Author Organization Healthcare Address [address] [place] [address] Care Team Providers Care Provider Engagement Executive Name Role Phone Zhao Harris MD Primary Care Provider [phone] Encounter Details Date Type Department Care Team (Latest Contact Info) Description 12/18/2024 9:46 AM EDT - 12/18/2024 11:59 PM EDT Hospital Encounter [facility] [address] [place] [address] Myelodysplasia (myelodysplastic syndrome) (CMS/HCC) (Primary Dx) Discharge [...] drink first t manav in the morning (EYE-HR ADVISOR) to steady your nerves or to [...] 5 MG tabletIndications :Coronary artery disease involving [place] heart with angina pectoris, unspecified vessel or lesion type (CMS/HCC),Hyperte nsion, unspecified type Take 1 tablet (5 mg) by mouth daily. 90 tablet 3 09/11/2024 HYDROcodone-aceta minophen ([place]) 5-325 MG tablet Take 1 tablet by [...] MG SL tabletIndications :Coronary artery disease involving [place] heart with angina pectoris, unspecified vessel or [...] Appointment [facility] Interventional Radiology [address] [place] [address] 02/10/2025 8:30 AM EDT Clinical Support [facility] Hematology/BMT and Cellular Therapy Program [address] [address] 02/10/2025 9:00 AM EDT Office Visit [facility] Hematology/BMT and Cellular Therapy Program [address] [address] Elaina Boss, PA 800 [facility] [address] [place] [phone] 02/10/2025 10:30 AM EDT Appointment [facility] 1 [address] [place] [address] 02/11/2025 2:00 PM EDT Appointment [facility] 1 [address] [place] [address] 02/12/2025 2:00 PM EDT Appointment [facility] 1 [address] [place] [address] 02/13/2025 2:00 PM EDT Appointment [facility] 1 [address] [place] [address] 02/14/2025 2:00 PM EDT Appointment [facility] 1 [address] [place] [address] 03/10/2025 8:30 AM EDT Clinical Support [facility] Hematology/BMT and Cellular Therapy Program [address] [address] 03/10/2025 9:00 AM EDT Office Visit [facility] Hematology/BMT and Cellular Therapy Program [address] [phone] Isaura Wynn, BOAT LOADER 800 [facility] [address] [place] [phone] 03/10/2025 11:20 AM EDT Office Visit Pav CC Head, Neck & Respiratory 800 [facility], 2nd [place] [address] Elsa Razo, BOAT LOADER 800 [place] [address] documented as of this encounter Visit Diagnoses [...] documented as of this encounter Care Teams Provider Engagement Executive Relationship Specialty Start Date End Date Zhao Harris MD [address] [place] [address] PCP - General 12/03/20 documented as of this encounter
--- OUTSIDE RECORDS SUMMARY | 2024-12-19 08:30 | XMS_ITS | Encounter Summary ---
Author Organization [facility] Address [address] [place] [address] Care Team Providers Care Health And Wellness Manager Name Role Phone Zhao Harris MD Primary Care Provider [phone] Reason for Visit * Episode Based Medications (Routine) - Closed Specialty Diagnoses / Procedures Referred By Justice mcgee Referred To Contact Diagnoses Myelodysplasia (myelodysplastic syndrome) (CMS/HCC) Procedures Azacitidine Daily x 7 / Venetoclax Every 28 Days Virgen Vargas MD [address] [address] Phone: tel: fax: Virgen Vargas MD [address] [address] Phone: tel: fax: Referral ID Status Reason Start Date Expiration Date Visits Re quested Visits Authorized [id number] Closed 10/20/2024 04/21/2026 1 91 Encounter Details Date Type Department Care Team (Latest Contact Info) Description 12/19/2024 8:30 AM EDT - 12/19/2024 11:[address] [facility] Infusion Clinic 2 [address] [place] [phone] Myelodysplasia (myelodysplastic syndrome) (CMS/HCC) (Primary Dx) Discharge [...] first t manav in the morning (EYE-STUDENT FINANCIAL SERVICES COUNSELOR) to steady your nerves or to get [...] Sign Reading Time Taken Comments Blood Pressure 110/72 12/19/2024 8:37 AM EDT Pulse 70 12/19/2024 8:37 AM EDT Temperature 36.9 C (98.4 F) 12/19/2024 8:37 AM EDT Respiratory Rate 16 12/19/2024 8:37 AM EDT Oxygen Saturation 95% 12/19/2024 8:37 AM EDT Inhaled Oxygen Concentration - - Weight 84.8 kg (186 lb 15.2 oz) 12/19/2024 8:37 AM EDT Height 170.2 cm (5' 7 ) 12/19/2024 8:37 AM EDT Body Mass Index 29.28 12/19/2024 8:37 AM EDT documented in this encounter Medications [...] daily. 90 tablet 3 09/11/2024 HYDROcodone-aceta minophen ([place]) 5-325 MG tablet Take 1 tablet by [...] [facility] A Interventional Radiology [address] [place] [address] 02/10/2025 8:30 AM EDT Clinical Support [facility] Hematology/BMT and Cellular Therapy Program [address] [address] 02/10/2025 9:00 AM EDT Office Visit [facility] Hematology/BMT and Cellular Therapy Program [address] [address] Elaina Boss PA 800 [facility] [address] [place] [address] 02/10/2025 10:30 AM EDT Appointment [facility] Infusion [facility] 1 [address] [place] [address] 02/11/2025 2:00 PM EDT Appointment [facility] 1 [address] [place] [address] 02/12/2025 2:[address] [facility] Infusion Clinic 1 [address] [place] [address] 02/13/2025 2:[address] [facility] Infusion Clinic 1 [address] [place] [address] 02/14/2025 2:00 PM EDT Appointment [facility]fusion [facility] 1 [address] [place] [address] 03/10/2025 8:30 AM EDT Clinical Support [facility] Hematology/BMT and Cellular Therapy Program [address] [address] 03/10/2025 9:00 AM EDT Office Visit [facility] Hematology/BMT and Cellular Therapy Program [address] [address] Isaura Wynn, INSPECTOR BRAKE LINING 800 [facility] [address] [place] [phone] 03/10/2025 11:20 AM EDT Office Visit [facility] CC Head, Neck & Respiratory 800 [facility], 2nd [place] [phone] Elsa Razo, INSPECTOR BRAKE LINING 800 [place] [address] documented as of this encounter Visit Diagnoses [...] Waste Container. Chemotherapy: refer to [id number]., On Sun12/19/24 at 0930, For 1 dose, In 50 mL NSIndications:Myelodysplasia (myelodysplastic syndrome) (CMS/HCC) New Bag 12/19/2024 9:20 AM EDT 150 mg 540 mL/hr ondansetron ODT (Zofran-ODT) disintegrating tablet 16 mg 16 mg, Oral, Once, 1 dose, On Sun12/19/24 at 0900, RoutineIndications:Myelodyspla haim (myelodysplastic syndrome) ([facility]) Given 12/19/2024 8:41 AM EDT 16 mg documented in this encounter Additional Health Concerns Assessment Noted Time PHQ-9 Depression Total Score: 0 09/11/19 9:15 AM EST A fall risk assessment has been complete d for the patient 12/19/2024 8:37 AM EDT A Body Mass Index follow-up plan has been documented for the patient 12/16/2024 12:23 PM EDT documented as of this encounter Care Teams Health And Wellness Manager Relationship Specialty Start Date End Date Zhao Harris MD [address] [place] [address] PCP - General 12/03/20 documented as of this encounter
--- OUTSIDE RECORDS SUMMARY | 2024-12-20 08:08 | XMS_ITS | Encounter Summary ---
Author Organization [facility] Address [address] [place] [address] Care Team Providers Care Marketing Content Manager Name Role Phone Zhao Harris MD Primary Care Provider + [phone] Reason for Visit * Episode Based Medications (Routine) - Closed Specialty Diagnoses / Procedures Referred By Justice mcgee Referred To Contact Diagnoses Myelodysplasia (myelodysplastic syndrome) (CMS/HCC) Procedures Azacitidine Daily x 7 / Venetoclax Every 28 Days Virgen Vargas MD [address] [place] [phone] Phone: tel: fax: Virgen Vargas MD [address] [phone] Phone: tel: fax: Referral ID Status Reason Start Date Expiration Date Visits Re quested Visits Authorized [id number] Closed 10/20/2024 04/21/2026 1 91 Encounter Details Date Type Department Care Team (Latest Contact Info) Description 12/20/2024 8:08 AM EDT - 12/20/2024 11:59 PM EDT Hospital Encounter [facility] Infusion Clinic 1 [address] [place] [phone] Myelodysplasia (myelodysplastic syndrome) (CMS/HCC) (Primary Dx); Thrombocytopenia [...] drink first t manav in the morning (EYE-ASP DEVELOPER) to steady your nerves or to [...] 5 MG tabletIndications :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 pectoris, unspecified vessel or [...] MG SL tabletIndications :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 pectoris, unspecified vessel or [...] ([facility] st Contact Info) Description 02/02/2025 9:30 AM EDT Appointment [facility] A Interventional Radiology [address] [place] [address] 02/10/2025 8:30 AM EDT Clinical Support [facility] Hematology/BMT and Cellular Therapy Program [address] [phone] 02/10/2025 9:00 AM EDT Office Visit [facility] Hematology/BMT and Cellular Therapy Program [address] [phone] Elaina Boss PA 800 [facility] [address] [place] [phone] 02/10/2025 10:30 AM EDT Appointment [facility] 1 [address] [place] [phone] 02/11/2025 2:00 PM EDT Appointment [facility] 1 [address] [place] [address] 02/12/2025 2:00 PM EDT Appointment [facility] 1 [address] [place] [phone] 02/13/2025 2:00 PM EDT Appointment [facility] 1 [address] [place] [phone] 02/14/2025 2:00 PM EDT Appointment [facility] 1 [address] [place] [phone] 03/10/2025 8:30 AM EDT Clinical Support [facility] CC Hematology/BMT and Cellular Therapy Program [address] [phone] 03/10/2025 9:00 AM EDT Office Visit [facility] CC Hematology/BMT and Cellular Therapy Program [address] [phone] Isaura Wynn, WELDER EXPLOSION 800 [facility] [address] [place] [phone] 03/10/2025 11:20 AM EDT Office Visit Pav CC Head, Neck & Respiratory 800 [facility], 2nd [place] [phone] Elsa Razo, WELDER EXPLOSION 800 [place] [phone] documented as of this encounter Procedures Procedure [...] ORDERABLE S Final Result BLOOD BANK 800 [place] [address], * Prepare Leukocyte Reduced RBC: 1 Units, Irradiated (12/20/2024 10:01 AM EDT) Product Code [id number] CH BLOO D BANK Dispense Status Transfused BLOOD BANK Blood Expiration Date [id number] BLOOD BANK Unit Number [id number] CH B LOOD BANK Product Blood Type 9500 BLOOD BANK Blood Type O- BLOOD BANK Crossmatch Compatible BLOOD BANK Other Kayli CHIU BLOOD BANK PRODUCT ORDER VIKAS Final Result BLOOD BANK 800 [place] [address], * (ABNORMAL) CBC and differential (12/20/2024 9:00 AM EDT) WBC Count 0.59(LL) 3.70 - 10.30 10*3/uL LAB HEMATOLOGY METHOD 12/20/2024 10:25 AM EDT [facility] RBC Count 2.46(L) 4.60 - 6.10 10*6/uL LAB HEMATOLOGY METHOD 12/20/2024 10:25 AM EDT [facility] HGB 7.8(L) 13.7 - 17.5 g/dL LAB HEMATOLOGY METHOD 12/20/2024 10:25 AM EDT [facility] HCT 22.0(L) 40.0 - 51.0 % LAB HEMATOLOGY METHOD 12/20/2024 10:25 AM EDT [facility] Platelet Count 22(L) 155 - 369 10*3/uL LAB HEMATOLOGY METHOD 12/20/2024 10:25 AM EDT [facility] MCV 89 79 - 98 fL LAB HEMATOLOGY METHOD 12/20/2024 10:25 AM EDT [facility] MCH 31.7 26.0 - 32.0 pg LAB HEMATOLOGY METHOD 12/20/2024 10:25 AM EDT [facility] MCHC 35.5 30.7 - 35.5 g/dL LAB HEMATOLOGY METHOD 12/20/2024 10:25 AM EDT [facility] RDW 16.0(H) 11.5 - 14.5 % LAB HEMATOLOGY METHOD 12/20/2024 10:25 AM EDT [facility] MPV 11.3 8.8 - 12.5 fL LAB HEMATOLOGY METHOD 12/20/2024 10:25 AM EDT [facility] nRBC 0.0 <=0.0 per 100 WBCs LAB HEMATOLOGY METHOD 12/20/2024 10:25 AM EDT [facility] Differential Type Automated LAB HEMATOLOGY METHOD 12/20/2024 10:25 AM EDT [facility] Neutrophils % 5 % LAB HEMATOLOGY METHOD 12/20/2024 10:25 AM EDT [facility] Lymphocytes % 92 % LAB HEMATOLOGY METHOD 12/20/2024 10:25 AM EDT [facility] Monocytes % 3 % LAB HEMATOLOGY METHOD 12/20/2024 10:25 AM EDT [facility] Eosinophils % 0 % LAB HEMATOLOGY METHOD 12/20/2024 10:25 AM EDT [facility] Basophils % 0 % LAB HEMATOLOGY METHOD 12/20/2024 10:25 AM EDT [facility] Immature Granulocytes % 0 % LAB HEMATOLOGY METHOD 12/20/2024 10:25 AM EDT [facility] Neutrophils Absolute 0.03(LL) 1.60 - 6.10 10*3/uL LAB HEMATOLOGY METHOD 12/20/2024 10:25 AM EDT [facility] Lymphocytes Absolute 0.54(L) 1.20 - 3.90 10*3/uL LAB HEMATOLOGY METHOD 12/20/2024 10:25 AM EDT [facility] Monocytes Absolute 0.02(L) 0.30 - 0.90 10*3/uL LAB HEMATOLOGY METHOD 12/20/2024 10:25 AM EDT [facility] Eosinophils Absolute 0.00 0.00 - 0.50 10*3/uL LAB HEMATOLOGY METHOD 12/20/2024 10:25 AM EDT [facility] Basophils Absolute 0.00 0.00 - 0.10 10*3/uL LAB HEMATOLOGY METHOD 12/20/2024 10:25 AM EDT [facility] Immature Granulocytes Absolute 0.00 0.00 - 0.06 10*3/uL LAB HEMATOLOGY METHOD 12/20/2024 10:25 AM EDT [facility] Blood Blood sample taken from central line / Unknown (Central Line) Existing Catheter / Unknown 12/20/2024 9:00 AM EDT 12/20/2024 9:13 AM EDT Narrative [facility] - 12/20/2024 10:25 AM EDT Therapeutic decision making should be based on absolute values, rather than percentages. us Christina Ramos MD LAB BLOOD ORDERABLES Final Resul t [facility] [address] [place] [address] documented in this encounter Visit Diagnoses Diagnosis [...] documented as of this encounter Care Teams Marketing Content Manager Relationship Specialty Start Date End Date Zhao Harris MD [address] [place] [address] [place] [address] PCP - General 12/03/20 documented as of this encounter
--- OUTSIDE RECORDS SUMMARY | 2024-12-21 08:30 | XMS_ITS | Encounter Summary ---
Author Organization [facility] Address [address] [place] [address] Care Team Providers Care Lamp Tester And Inspector Name Role Phone Zhao Harris MD Primary Care Provider + [phone] Reason for Visit * Episode Based Medications (Routine) - Closed Specialty Diagnoses / Procedures Referred By Justice mcgee Referred To Contact Diagnoses Myelodysplasia (myelodysplastic syndrome) (CMS/HCC) Procedures Azacitidine Daily x 7 / Venetoclax Every 28 Days Virgen Vargas MD [address] [address] Phone: tel: fax: Virgen Vargas MD [address] [address] Phone: tel: fax: Referral ID Status Reason Start Date Expiration Date Visits Re quested Visits Authorized [id number] Closed 10/20/2024 04/21/2026 1 91 Encounter Details Date Type Department Care Team (Latest Contact Info) Description 12/21/2024 8:30 AM EDT - 12/21/2024 11:59 PM EDT Hospital Encounter [facility] Infusion Clinic 1 [address] [place] [phone] Myelodysplasia (myelodysplastic syndrome) (CMS/HCC) (Primary Dx) Discharge [...] first t manav in the morning (EYE-HEALTH PROGRAM SPECIALIST) to steady your nerves or to [...] Taken Comments Blood Pressure - - Pulse 68 12/21/2024 8:46 AM EDT Temperature 36.7 C (98.1 F) 12/21/2024 8:46 AM EDT Respiratory Rate 16 12/21/2024 8:46 AM EDT Oxygen Saturation 98% 12/21/2024 8:46 AM EDT Inhaled Oxygen Concentration - - Weight 83.4 kg (183 lb 13.8 oz) 12/21/2024 8:46 AM EDT Height 170.2 cm (5' 7 ) 12/21/2024 8:46 AM EDT Body Mass Index 28.8 12/21/2024 8:46 AM EDT documented in this encounter Medications at Time of Discharge acyclovir (Zovirax) 800 MG tabletIndications :Myelodysplasia (myelodysplastic syndrome) (CMS/HCC) Take 1 tablet (800 mg) by mouth in the morning and 1 tablet (800 mg) before bedtime. 60 tablet 3 10/14/2024 bisoprolol (Zebeta) 5 MG tabletIndications :Coronary artery disease involving alutiiq heart with angina pectoris, unspecified vessel or lesion type (CMS/HCC),Hyperte nsion, unspecified type Take 1 tablet (5 mg) by mouth daily. 90 tablet 3 09/11/2024 HYDROcodone-aceta minophen ([place]) 5-325 MG tablet Take 1 tablet by [...] MG SL tabletIndications :Coronary artery disease involving alutiiq heart with angina pectoris, unspecified vessel or [...] Appointment [facility] A Interventional Radiology [address] [place] [address] 02/10/2025 8:30 AM EDT Clinical Support [facility] Hematology/BMT and Cellular Therapy Program [address] [place] [phone] 02/10/2025 9:00 AM EDT Office Visit [facility] Hematology/BMT and Cellular Therapy Program [address] [address] Elaina Boss, ARAM 800 [facility] [address] [place] [address] 02/10/2025 10:30 AM EDT Appointment [facility] Infusion Clinic 1 [address] [place] [address] 02/11/2025 2:00 PM EDT Appointment [facility] Infusion Clinic 1 [address] [place] [address] 02/12/2025 2:00 PM EDT Appointment [facility] Infusion Clinic 1 [address] [place] [address] 02/13/2025 2:00 PM EDT Appointment [facility] Infusion Clinic 1 [address] [place] [address] 02/14/2025 2:00 PM EDT Appointment [facility] Infusion Clinic 1 [address] [place] [address] 03/10/2025 8:30 AM EDT Clinical Support [facility] Hematology/BMT and Cellular Therapy Program [address] [address] 03/10/2025 9:00 AM EDT Office Visit [facility] Hematology/BMT and Cellular Therapy Program [address] [address] Isaura Wynn, CANS VACUUM TESTER 800 [facility] [address] [place] [phone] 03/10/2025 11:20 AM EDT Office Visit [facility] CC Head, Neck & Respiratory 800 [facility], [address]nd [place] [phone] Elsa Razo, CANS VACUUM TESTER [address] [place] [phone] documented as of this encounter Visit Diagnoses [...] Waste Container. Chemotherapy: refer to [id number]., On 12/21/24 at 0930, For 1 dose, In 50 mL NSIndications:Myelodysplasia (myelodysplastic syndrome) (CMS/HCC) New Bag 12/21/2024 9:15 AM EDT 150 mg 540 mL/hr ondansetron ODT (Zofran-ODT) disintegrating tablet 16 mg 16 mg, Oral, Once, 1 dose, On 12/21/24 at 0900, RoutineIndications:Myelodyspla haim (myelodysplastic syndrome) (CMS/HCC) Given 12/21/2024 8:53 AM EDT 16 mg documented in this encounter Additional Health Concerns Assessment Noted Time PHQ-9 Depression Total Score: 0 09/11/19 9:15 AM EST A fall risk assessment has been complete d for the patient 12/21/2024 8:45 AM EDT A Body Mass Index follow-up plan has been documented for the patient 12/16/2024 12:23 PM EDT documented as of this encounter Care Teams Lamp Tester And Inspector Relationship Specialty Start Date End Date Zhao Harris MD [address] [place] [address] PCP - General 12/03/20 documented as of this encounter
--- OUTSIDE RECORDS SUMMARY | 2024-12-22 08:24 | XMS_ITS | Encounter Summary ---
Author Organization [facility] Address [address] [place] [address] Care Team Providers Care Breakfast Supervisor Name Role Phone Zhao Harris MD Primary Care Provider + [phone] Reason for Visit * Episode Based Medications (Routine) - Closed Specialty Diagnoses / Procedures Referred By Justice mcgee Referred To Contact Diagnoses Myelodysplasia (myelodysplastic syndrome) (CMS/HCC) Procedures Azacitidine Daily x 7 / Venetoclax Every 28 Days Virgen Vargas MD 800 [facility] [address] [address] Phone: tel: fax: Virgen Vargas MD [address] [address] Phone: tel: fax: Referral ID Status Reason Start Date Expiration Date Visits Re quested Visits Authorized [id number] Closed 10/20/2024 04/21/2026 1 91 Encounter Details Date Type Department Care Team (Latest Contact Info) Description 12/22/2024 8:24 AM EDT - 12/22/2024 9:57 AM EDT Hospital Encounter P[facility] H Infusion [address] [place] [phone] Myelodysplasia (myelodysplastic syndrome) (CMS/HCC) (Primary Dx); Thrombocytopenia [...] drink first t manav in the morning (EYE-MINING PLANT OPERATOR) to steady your nerves or to [...] daily. 90 tablet 3 09/11/2024 HYDROcodone-aceta minophen ([place]) 5-325 MG tablet Take 1 tablet by [...] Encounters Date Type Department Care Team ([facility] st Contact Info) Description 02/02/2025 9:30 AM EDT Appointment PAV A Interventional Radiology [address] [place] [address] 02/10/2025 8:30 AM EDT Clinical Support PAV CC Hematology/BMT and Cellular Therapy Program [address] [place] [address] 02/10/2025 9:00 AM EDT Office Visit PAV Hematology/BMT and Cellular Therapy Program [address] [place] [address] Elaina Boss, ARAM [address] [facility] [address] [place] [phone] 02/10/2025 10:30 AM EDT Appointment [facility] Infusion [facility] 1 [address] [place] [phone] 02/11/2025 2:00 PM EDT Appointment [facility]fusion [facility] 1 [address] [place] [address] 02/12/2025 2:00 PM EDT Appointment [facility] Infusion [facility] 1 [address] [place] [address] 02/13/2025 2:00 PM EDT Appointment [facility]fusion [facility] 1 [address] [place] [phone] 02/14/2025 2:00 PM EDT Appointment [facility] Infusion [facility] 1 [address] [place] [phone] 03/10/2025 8:30 AM EDT Clinical Support P[facility] CC Hematology/BMT and Cellular Therapy Program [address] [phone] 03/10/2025 9:00 AM EDT Office Visit PAV Hematology/BMT and Cellular Therapy Program [address] [phone] Isaura Wynn, CLIENT PROJECT COORDINATOR [address] [facility] [address] [place] [phone] 03/10/2025 11:20 AM EDT Office Visit Pav CC Head, Neck & Respiratory 800 [facility], 2nd [place] [phone] Elsa Razo, CLIENT PROJECT COORDINATOR [address] [place] [phone] documented as of this encounter Procedures Procedure [...] (ABNORMAL) Platelet count (12/22/2024 10:57 AM EDT) [facility] [address] Platelet Count 36(L) 155 - 369 10*3/uL LAB HEMATOLOGY METHOD 12/22/2024 11:14 AM EDT [facility] Blood Venous blood specimen / Unknown Venipuncture / Unknown 12/22/2024 10:57 AM EDT 12/22/2024 11:04 AM EDT Virgen Vargas MD LAB BLOOD ORDERABLES Final Re sult [facility] [address] [place] [address] * Prepare Leukocyte Reduced Platelets: 1 Units (12/22/2024 9:44 AM EDT) Pathologist [facility] Product Code [id number] BLOO D BANK Dispense Status Transfused BLOOD BANK Blood Expiration Date [id number] BLOOD BANK Unit Number [id number] B LOOD BANK Product Blood Type 0600 BLOOD BANK Blood Type A- CH BLOOD BANK Blood Venous blood specimen / Unknown us Kayli CHIU BLOOD BANK PRODUCT ORDER VIKAS Final Result BLOOD BANK [address] [place] [address], * (ABNORMAL) CBC and Differential (12/22/2024 8:53 AM EDT) WBC Count 0.50(LL) 3.70 - 10.30 10*3/uL LAB HEMATOLOGY METHOD 12/22/2024 11:33 AM EDT [facility] RBC Count 2.90(L) 4.60 - 6.10 10*6/uL LAB HEMATOLOGY METHOD 12/22/2024 11:33 AM EDT [facility] HGB 8.9(L) 13.7 - 17.5 g/dL LAB HEMATOLOGY METHOD 12/22/2024 11:33 AM EDT [facility] HCT 25.0(L) 40.0 - 51.0 % LAB HEMATOLOGY METHOD 12/22/2024 11:33 AM EDT [facility] Platelet Count 5(LL) 155 - 369 10*3/uL LAB HEMATOLOGY METHOD 12/22/2024 11:33 AM EDT [facility] MCV 86 79 - 98 fL LAB HEMATOLOGY METHOD 12/22/2024 11:33 AM EDT [facility] MCH 30.7 26.0 - 32.0 pg LAB HEMATOLOGY METHOD 12/22/2024 11:33 AM EDT [facility] MCHC 35.6(H) 30.7 - 35.5 g/dL LAB HEMATOLOGY METHOD 12/22/2024 11:33 AM EDT [facility] RDW 15.6(H) 11.5 - 14.5 % LAB HEMATOLOGY METHOD 12/22/2024 11:33 AM EDT [facility] MPV LAB HEMATOLOGY METHOD 12/22/2024 11:33 AM EDT [facility] Comment:Not Measured nRBC 0.0 <=0.0 per 100 WBCs LAB HEMATOLOGY METHOD 12/22/2024 11:33 AM EDT [facility] Differential Type Automated LAB HEMATOLOGY METHOD 12/22/2024 11:33 AM EDT [facility] Neutrophils % 12 % LAB HEMATOLOGY METHOD 12/22/2024 11:33 AM EDT [facility] Lymphocytes % 86 % LAB HEMATOLOGY METHOD 12/22/2024 11:33 AM EDT [facility] Monocytes % 2 % LAB HEMATOLOGY METHOD 12/22/2024 11:33 AM EDT [facility] Eosinophils % 0 % LAB HEMATOLOGY METHOD 12/22/2024 11:33 AM EDT [facility] Basophils % 0 % LAB HEMATOLOGY METHOD 12/22/2024 11:33 AM EDT [facility] Immature Granulocytes % 0 % LAB HEMATOLOGY METHOD 12/22/2024 11:33 AM EDT [facility] Neutrophils Absolute 0.06(LL) 1.60 - 6.10 10*3/uL LAB HEMATOLOGY METHOD 12/22/2024 11:33 AM EDT [facility] Lymphocytes Absolute 0.43(L) 1.20 - 3.90 10*3/uL LAB HEMATOLOGY METHOD 12/22/2024 11:33 AM EDT [facility] Monocytes Absolute 0.01(L) 0.30 - 0.90 10*3/uL LAB HEMATOLOGY METHOD 12/22/2024 11:33 AM EDT [facility] Eosinophils Absolute 0.00 0.00 - 0.50 10*3/uL LAB HEMATOLOGY METHOD 12/22/2024 11:33 AM EDT [facility] Basophils Absolute 0.00 0.00 - 0.10 10*3/uL LAB HEMATOLOGY METHOD 12/22/2024 11:33 AM EDT [facility] Immature Granulocytes Absolute 0.00 0.00 - 0.06 10*3/uL LAB HEMATOLOGY METHOD 12/22/2024 11:33 AM EDT [facility] Blood Venous blood specimen / Unknown Venipuncture / Unknown 12/22/2024 8:53 AM EDT 12/22/2024 8:59 AM EDT [facility] 12/22/2024 11:33 AM EDT Therapeutic decision making should be based on absolute values, rather than percentages. us Virgen Vargas MD LAB BLOOD ORDERABLES Final Re sult [facility] [address] [place] [address] * (ABNORMAL) Comprehensive Metabolic Panel, Plasma (12/22/2024 8:53 AM EDT) Glucose, Plasma 107(H) 74 - 99 mg/dL 12/22/2024 9:29 AM EDT [facility] BUN, Plasma 14 8 - 23 mg/dL 12/22/2024 9:29 AM EDT [facility] Creatinine, Plasma 0.93 0.70 - 1.20 mg/dL 12/22/2024 9:29 AM EDT [facility] BUN/Creatinine Ratio 15 12/22/2024 9:29 AM EDT [facility] Sodium, Plasma 136 136 - 145 mmol/L 12/22/2024 9:29 AM EDT [facility] Potassium, Plasma 4.3 3.6 - 4.9 mmol/L 12/22/2024 9:29 AM EDT [facility] Chloride, Plasma 106 97 - 107 mmol/L 12/22/2024 9:29 AM EDT [facility] CO2, Plasma 22 22 - 29 mmol/L 12/22/2024 9:29 AM EDT [facility] Anion Gap 8 6 - 16 mmol/L 12/22/2024 9:29 AM EDT [facility] Total Calcium, Plasma 9.1 8.9 - 10.2 mg/dL 12/22/2024 9:29 AM EDT [facility] Total Protein 7.0 6.3 - 7.9 g/dL 12/22/2024 9:29 AM EDT [facility] Albumin, Plasma 3.9 3.5 - 5.2 g/dL 12/22/2024 9:29 AM EDT [facility] AST, Plasma 16 10 - 50 U/L 12/22/2024 9:29 AM EDT [facility] ALT, Plasma 12 10 - 50 U/L 12/22/2024 9:29 AM EDT [facility] Alkaline Phosphatase, Plasma 83 40 - 115 U/L 12/22/2024 9:29 AM EDT [facility] Total Bilirubin, Plasma 0.7 0.2 - 1.1 mg/dL 12/22/2024 9:29 AM EDT [facility] eGFRcr 88.9 mL/min/1.7 3m*2 12/22/2024 9:29 AM EDT [facility] Comment:Reported eGFRcr in m L/min/1.73m2 is based the CKD-EPI 2020 equation that does not use a race coefficient. Blood Venous blood specimen / Unknown Venipuncture / Unknown 12/22/2024 8:53 AM EDT 12/22/2024 8:59 AM EDT us Virgen Vargas MD LAB BLOOD ORDERABLES Final Re sult [facility] [address] [place] [address] documented in this encounter Visit Diagnoses Diagnosis [...] documented as of this encounter Care Teams Breakfast Supervisor Relationship Specialty Start Date End Date Zhao Harris MD [address] [place] [address] PCP - General 12/03/20 documented as of this encounter
--- OUTSIDE RECORDS SUMMARY | 2024-12-22 09:58 | XMS_ITS | Encounter Summary ---
Author Organization Healthcare Address [address] [place] [address] Care Team Providers Care Partition Setter Name Role Phone Zhao Harris MD Primary Care Provider [phone] Encounter Details Date Type Department Care Team (Latest Contact Info) Description 12/22/2024 9:58 AM EDT - 12/22/2024 11:59 PM EDT Hospital Encounter [facility] H Infusion [address] [place] [address] Myelodysplasia (myelodysplastic syndrome) (CMS/HCC) (Primary Dx) Discharge [...] drink first t manav in the morning (EYE-BENEFITS ADMINISTRATOR) to steady your nerves or to [...] daily. 90 tablet 3 09/11/2024 HYDROcodone-aceta minophen ([place]) 5-325 MG tablet Take 1 tablet by [...] Appointment [facility] A Interventional Radiology [address] [place] [address] 02/10/2025 8:30 AM EDT Clinical Support PAV Hematology/BMT and Cellular Therapy Program [address] [address] 02/10/2025 9:00 AM EDT Office Visit PAV Hematology/BMT and Cellular Therapy Program [address] [address] Elaina Boss, PA 800 [facility] [address] [place] [phone] 02/10/2025 10:30 AM EDT Appointment [facility] Infusion [facility] 1 [address] [place] [address] 02/11/2025 2:00 PM EDT Appointment [facility] 1 [address] [place] [address] 02/12/2025 2:00 PM EDT Appointment [facility] 1 [address] [place] [address] 02/13/2025 2:00 PM EDT Appointment [facility] 1 [address] [place] [address] 02/14/2025 2:00 PM EDT Appointment [facility] Infusion Clinic 1 [address] [place] [address] 03/10/2025 8:30 AM EDT Clinical Support PAV Hematology/BMT and Cellular Therapy Program [address] [address] 03/10/2025 9:00 AM EDT Office Visit PAV Hematology/BMT and Cellular Therapy Program [address] [address] Isaura Wynn, ESTRELLA 800 [facility] [address] [place] [phone] 03/10/2025 11:20 AM EDT Office Visit Pav CC Head, Neck & Respiratory 800 [facility], 2nd [place] [address] Elsa Razo, NURSING PROGRAM DIRECTOR 800 [place] [address] documented as of this encounter Visit Diagnoses [...] documented as of this encounter Care Teams Partition Setter Relationship Specialty Start Date End Date Zhao Harris MD [facility] [address] [address] PCP - General 12/03/20 documented as of this encounter
--- OUTSIDE RECORDS SUMMARY | 2025-01-06 08:30 | XMS_ITS | Encounter Summary ---
Author Organization [facility] Address [address] [place] [address] Care Team Providers Care Cost Coordinator Name Role Phone Zhao Harris MD Primary Care Provider [phone] Reason for Visit * Reason Comments Labs Encounter Details Date Type Department Care Team ([facility] st Contact Info) Description 01/06/2025 8:30 AM EDT Clinical Support [facility] CC Hematology/BMT and Cellular Therapy Program [address] [place] [address] [place] [address] Nate Ponce, RN Social History Tobacco Use [...] drink first t manav in the morning (EYE-SUPPLEMENTAL MANAGER) to steady your nerves or to [...] Upcoming Encounters Date Type Department Care Team ([facility] st Contact Info) Description 02/02/2025 9:30 AM EDT Appointment [facility] A Interventional Radiology [address] [place] [address] 02/10/2025 8:30 AM EDT Clinical Support [facility] Hematology/BMT and Cellular Therapy Program [address] [place] [phone] 02/10/2025 9:00 AM EDT Office Visit [facility] Hematology/BMT and Cellular Therapy Program [address] [phone] Elaina Boss, PA 800 [facility] [address] [place] [phone] 02/10/2025 10:30 AM EDT Appointment [facility] 1 [address] [place] [address] 02/11/2025 2:00 PM EDT Appointment [facility] 1 [address] [place] [address] 02/12/2025 2:00 PM EDT Appointment [facility] 1 [address] [place] [address] 02/13/2025 2:00 PM EDT Appointment [facility] 1 [address] [place] [address] 02/14/2025 2:00 PM EDT Appointment [facility] 1 [address] [place] [address] 03/10/2025 8:30 AM EDT Clinical Support [facility] CC Hematology/BMT and Cellular Therapy Program 750 [facility] [place] [phone] 03/10/2025 9:00 AM EDT Office Visit [facility] CC Hematology/BMT and Cellular Therapy Program 750 [facility], [address] [place] [phone] Isaura Wynn, DRY YARD WORKER 800 [facility] [address] [place] [phone] 03/10/2025 11:20 AM EDT Office Visit Pav CC Head, Neck & Respiratory 800 [facility], [address]nd [place] [phone] Elsa Razo, DRY YARD WORKER [address] [place] [phone] documented as of this encounter Visit Diagnoses [...] documented as of this encounter Care Teams Cost Coordinator Relationship Specialty Start Date End Date Zhao Harris MD [address] [place] [phone] PCP - General 12/03/20 documented as of this encounter
--- OUTSIDE RECORDS SUMMARY | 2025-01-06 09:00 | XMS_ITS | Encounter Summary ---
Author Organization [facility] Address [address] [place] [address] Care Team Providers Care Nursing Manager Name Role Phone Zhao Harris MD Primary Care Provider [phone] Reason for Visit * Reason Comments Procedure * Genetic Testing (Routine) - Authorized Specialty Diagnoses / Procedures Referred By Justice [email or web address] Referred To Contact Lab Diagnoses Myelodysplasia (myelodysplastic syndrome) (CMS/HCC) Procedures Leukemia/Lymphoma - Immunophenotyping by Flow Cytometry Virgen Vargas MD 800 [facility] Cancer [address] [address] Phone: tel: fax: Referral ID Status Reason Start Date Expiration Date V isits Requested Visits Authorized [id number] Authorized 12/18/2024 06/19/2026 1 1 Encounter Details Date Type Department Care Team (Latest Contact Info) Description 01/06/2025 9:00 AM EDT Procedure Visit PAV CC Hematology/BMT and Cellular Therapy Program [address] [place] [address] Kierra Novak APRN 800 [facility] Cancer [address] [address] Myelodysplasia (myelodysplastic syndrome) (CMS/HCC) Social [...] drink first t manav in the morning (EYE-NUCLEAR EQUIPMENT SALES ENGINEER) to steady your nerves or to [...] yes Risks discussed: Bleeding, infection and pain [place] protocol: Procedure explained and questions answered to [...] ([facility] st Contact Info) Description 02/02/2025 9:30 AM EDT Appointment PAV A Interventional Radiology [address] [place] [address] 02/10/2025 8:30 AM EDT Clinical Support PAV Hematology/BMT and Cellular Therapy Program [address] [address] 02/10/2025 9:00 AM EDT Office Visit PAV Hematology/BMT and Cellular Therapy Program [address] [address] Elaina Boss PA 800 [facility] [address] [place] [address] 02/10/2025 10:30 AM EDT Appointment [facility] Infusion [facility] 1 [address] [place] [address] 02/11/2025 2:00 PM EDT Appointment [facility]fusion [facility] 1 [address] [place] [address] 02/12/2025 2:00 PM EDT Appointment [facility]fusion [facility] 1 [address] [place] [address] 02/13/2025 2:00 PM EDT Appointment [facility] 1 [address] [place] [address] 02/14/2025 2:00 PM EDT Appointment [facility]fusion [facility] 1 [address] [place] [address] 03/10/2025 8:30 AM EDT Clinical Support PAV CC Hematology/BMT and Cellular Therapy Program [address] [address] 03/10/2025 9:00 AM EDT Office Visit PAV CC Hematology/BMT and Cellular Therapy Program [address] [address] Isaura Wynn, CERTIFIED MORTICIAN 800 [facility] [address] [place] [phone] 03/10/2025 11:20 AM EDT Office Visit Pav CC Head, Neck & Respiratory 800 [facility], 2nd [place] [address] Elsa Razo, CERTIFIED MORTICIAN [address] [place] [address] documented as of this encounter Procedures Procedure [...] yes Risks discussed: Bleeding, infection and pain [place] protocol: Procedure explained and questions answered to [...] Flow Cytometry (01/06/2025 9:48 AM EDT) Pathologist [facility] Clinical Indication AML 01/07/2025 10:18 AM T [facility] Flow Cytometry Interpretation APPROXIMATELY 16% MYELOID BLASTS; EXPRESSING CD34, CD117, CD13, CD33, HLA-DR, PARTIAL CD7, PARTIAL CD123, VARIABLE CD38, AND MODERATE CD45, SEE COMMENT, BONE MARROW ASPIRATE. 01/07/2025 10:18 AM EDT [facility] Comments Specimen viability is [...] disease. Final interpretation requires morphologic correlation (BM [id number]). The following antibodies were used in this analysis: CD45, CD2, CD3, CD4, CD5, CD7, CD8, CD10, CD13, CD14, CD15, CD16, CD19, CD20, CD33, CD34, CD38, CD56, CD117, HLA-DR, kappa surface light chains, lambda surface light chains, CD123 01/07/2025 10:18 AM [facility] Disclaimer This test was developed and its performance characteristics determined by the Immuno-Molecular Pathology Laboratory at the [facility]. It has not been cleared or approved [...] complexity clinical laboratory testing. 01/07/2025 10:18 AM [facility] Pathologist Signature Reviewed by: Tessie Peralta MD 01/07/2025 10:18 AM [facility] MRD Indicated Test Not Indicated 06/ 10:18 AM EDT [facility] Bone Marrow Specimen from bone marrow obtained by aspiration / Unknown Non-blood Collection / Unknown 01/06/2025 9:48 AM EDT 01/06/2025 11:20 AM EDT Virgen Vargas MD LAB FLOW CYTOMETRY ORDERABLES Final Result [facility] [address] [place] [address] * Bone marrow exam (01/06/2025 9:48 AM EDT) Case Report Bone Marrow Case: [id number] Authorizing Provider: Virgen Vargas MD Collected: 01/06/2025 0948 Ordering Location: [facility] Hematology/BMT and Received: 01/06/2025 1108 Cellular Therapy Program Pathologist: Tessie Peralta MD Specimens: A) - Bone Marrow Aspirate, left B) - Bone Marrow Biopsy, left C) - Peripheral Blood for Bone Marrow 6:13 PM EDT [facility] Final Diagnosis BONE MARROW, LEFT POSTERIOR ILIAC CREST, (PERIPHERAL SMEAR, ASPIRATE SMEARS, AND CORE BIOPSY): - MILDLY HYPOCELLULAR BONE MARROW WITH ERYTHROID HYPERPLASIA, MARKEDLY REDUCED GRANULOPOIESIS, PERSISTENT DYSPOIESIS AND 10% BLASTS, SEE COMMENT. 6:13 PM EDT [facility] at 1813 EDT Comment The marrow cellularity is composed of erythroid cells with markedly reduced granulopoiesis and decreased megakaryocytes. Persistent trilineage dyspoiesis is noted. The blast percentages are higher by flow cytometry analysis as the majority of marrow cellularity consists of erythroid precursors that are removed by flow cytometry. 6:13 PM EDT [facility] Clinical Information AML 12/22 6:13 PM EDT [facility] CBC and Differential PERIPHERAL [...] circulating blasts are identified. 6:13 PM EDT [facility] Bone Marrow Differential BONE MARROW DIFFERENTIAL: 400 cells Normal Patient Neutrophils 15-50 0 Metamyelocytes 4-19 1 Myelocytes 1-18 2 Promyelocytes 1-8 1 Blasts 0-2 10 Monocytes 0-5 0 Erythroid 16-38 73 Lymphocytes 3-24 4 Eosinophils 0-6 1 Basophils 0-2 0 Plasma cells 0-4 8 Other 6:13 PM EDT [facility] Bone Marrow Aspirate and Biopsy Core [...] developed by and are performed at the [facility] Clinical Laboratory, [address] [place] [address]. All tests reported here, except those addressing [...] on decalcified specimens. 5 6:13 PM EDT [facility] Flow Cytometry Interpretation APPROXIMATELY 16% MYELOID BLASTS; EXPRESSING CD34, CD117, CD13, CD33, HLA-DR, PARTIAL CD7, PARTIAL CD123, VARIABLE CD38, AND MODERATE CD45, SEE COMMENT, BONE MARROW ASPIRATE ([id number]) 5 6:13 PM EDT [facility] Gross Description B. LEFT A single specimen is received in formalin labeled bone marrow biopsy left posterior iliac crest and consists of 2 piece(s) of tissue measuring 0.8/0.2 cm in length 0.2 cm in diameter. The specimen is submitted in to Histology for decalcification and routine processing. Cold Time: <1m 5 6:13 PM EDT [facility] Note: A resident was involved in the service. I attest I examined the relevant preparations for the specimens and confirmed the diagnosis or interpretation. 5 6:13 PM EDT [facility] Bone Marrow Peripheral blood [...] MD LAB PATHOLOGY ORDERABLES Terri lara Result [facility] [address] [place] [address] * (ABNORMAL) Comprehensive metabolic panel (01/06/2025 8:49 AM EDT) Glucose, Plasma 100(H) 74 - 99 mg/dL 01/06/2025 9:34 AM EDT [facility] BUN, Plasma 8 8 - 23 mg/dL 01/06/2025 9:34 AM EDT [facility] Creatinine, Plasma 0.76 0.70 - 1.20 mg/dL 01/06/2025 9:34 AM EDT [facility] BUN/Creatinine Ratio 11 01/06/2025 9:34 AM EDT [facility] Sodium, Plasma 138 136 - 145 mmol/L 01/06/2025 9:34 AM EDT [facility] Potassium, Plasma 4.3 3.6 - 4.9 mmol/L 01/06/2025 9:34 AM EDT [facility] Chloride, Plasma 109(H) 97 - 107 mmol/L 01/06/2025 9:34 AM EDT [facility] CO2, Plasma 21(L) 22 - 29 mmol/L 01/06/2025 9:34 AM EDT [facility] Anion Gap 8 6 - 16 mmol/L 01/06/2025 9:34 AM EDT [facility] Total Calcium, Plasma 8.8(L) 8.9 - 10.2 mg/dL 01/06/2025 9:34 AM EDT [facility] Total Protein 6.6 6.3 - 7.9 g/dL 01/06/2025 9:34 AM EDT [facility] Albumin, Plasma 3.9 3.5 - 5.2 g/dL 01/06/2025 9:34 AM EDT [facility] AST, Plasma 25 10 - 50 U/L 01/06/2025 9:34 AM EDT [facility] ALT, Plasma 28 10 - 50 U/L 01/06/2025 9:34 AM EDT [facility] Alkaline Phosphatase, Plasma 83 40 - 115 U/L 01/06/2025 9:34 AM EDT [facility] Total Bilirubin, Plasma 0.5 0.2 - 1.1 mg/dL 01/06/2025 9:34 AM EDT [facility] eGFRcr 97.3 mL/min/1.7 3m*2 01/06/2025 9:34 AM EDT [facility] Comment:Reported eGFRcr in m L/min/1.73m2 is based the CKD-EPI 2020 equation that does not use a race coefficient. Blood Venous blood specimen / Unknown Venipuncture / Unknown 01/06/2025 8:49 AM EDT 01/06/2025 9:01 AM EDT us Christina Ramos MD LAB BLOOD ORDERABLES Final Resul t [facility] [address] [place] [address] * (ABNORMAL) CBC and differential (01/06/2025 8:49 AM EDT) WBC Count 0.59(LL) 3.70 - 10.30 10*3/uL LAB HEMATOLOGY METHOD 01/06/2025 11:36 AM EDT [facility] RBC Count 2.95(L) 4.60 - 6.10 10*6/uL LAB HEMATOLOGY METHOD 01/06/2025 11:36 AM EDT [facility] HGB 8.8(L) 13.7 - 17.5 g/dL LAB HEMATOLOGY METHOD 01/06/2025 11:36 AM EDT [facility] HCT 25.3(L) 40.0 - 51.0 % LAB HEMATOLOGY METHOD 01/06/2025 11:36 AM EDT [facility] Platelet Count 75(L) 155 - 369 10*3/uL LAB HEMATOLOGY METHOD 01/06/2025 11:36 AM EDT [facility] MCV 86 79 - 98 fL LAB HEMATOLOGY METHOD 01/06/2025 11:36 AM EDT [facility] MCH 29.8 26.0 - 32.0 pg LAB HEMATOLOGY METHOD 01/06/2025 11:36 AM EDT [facility] MCHC 34.8 30.7 - 35.5 g/dL LAB HEMATOLOGY METHOD 01/06/2025 11:36 AM EDT [facility] RDW 14.6(H) 11.5 - 14.5 % LAB HEMATOLOGY METHOD 01/06/2025 11:36 AM EDT [facility] MPV 10.7 8.8 - 12.5 fL LAB HEMATOLOGY METHOD 01/06/2025 11:36 AM EDT [facility] nRBC 3.4(H) <=0.0 per 100 WBCs LAB HEMATOLOGY METHOD 01/06/2025 11:36 AM EDT [facility] Differential Type Automated LAB HEMATOLOGY METHOD 01/06/2025 11:36 AM EDT [facility] Neutrophils % 5 % LAB HEMATOLOGY METHOD 01/06/2025 11:36 AM EDT [facility] Lymphocytes % 88 % LAB HEMATOLOGY METHOD 01/06/2025 11:36 AM EDT [facility] Monocytes % 7 % LAB HEMATOLOGY METHOD 01/06/2025 11:36 AM EDT [facility] Eosinophils % 0 % LAB HEMATOLOGY METHOD 01/06/2025 11:36 AM EDT [facility] Basophils % 0 % LAB HEMATOLOGY METHOD 01/06/2025 11:36 AM EDT [facility] Immature Granulocytes % 0 % LAB HEMATOLOGY METHOD 01/06/2025 11:36 AM EDT [facility] Neutrophils Absolute 0.03(LL) 1.60 - 6.10 10*3/uL LAB HEMATOLOGY METHOD 01/06/2025 11:36 AM EDT [facility] Lymphocytes Absolute 0.52(L) 1.20 - 3.90 10*3/uL LAB HEMATOLOGY METHOD 01/06/2025 11:36 AM EDT [facility] Monocytes Absolute 0.04(L) 0.30 - 0.90 10*3/uL LAB HEMATOLOGY METHOD 01/06/2025 11:36 AM EDT [facility] Eosinophils Absolute 0.00 0.00 - 0.50 10*3/uL LAB HEMATOLOGY METHOD 01/06/2025 11:36 AM EDT [facility] Basophils Absolute 0.00 0.00 - 0.10 10*3/uL LAB HEMATOLOGY METHOD 01/06/2025 11:36 AM EDT [facility] Immature Granulocytes Absolute 0.00 0.00 - 0.06 10*3/uL LAB HEMATOLOGY METHOD 01/06/2025 11:36 AM EDT [facility] Blood Venous blood specimen / Unknown Venipuncture / Unknown 01/06/2025 8:49 AM EDT 01/06/2025 9:01 AM EDT Narrative [facility] - 01/06/2025 11:36 AM EDT Therapeutic decision making should be based on absolute values, rather than percentages. us Christina Ramos MD LAB BLOOD ORDERABLES Final Resul t [facility] [address] [place] [address] documented in this encounter Visit Diagnoses Diagnosis [...] as of this encounter Care Teams Nursing Manager Relationship Specialty Start Date End Date Zhao Harris MD [facility] [address] [place] [address] PCP - General 12/03/20 documented as of this encounter
--- OUTSIDE RECORDS SUMMARY | 2025-01-13 09:30 | XMS_ITS | Encounter Summary ---
Author Organization [facility] Address [address] [place] [address] Care Team Providers Care Commercial Sheet Metal Foreman Name Role Phone Zhao Harris MD Primary Care Provider [phone] Reason for Visit * Reason Comments Nurse Visit Labs Encounter Details Date Type Department Care Team ([facility] Contact Info) Description 01/13/2025 9:30 AM EDT Clinical Support P[facility] CC Hematology/BMT and Cellular Therapy Program [address] [place] [address] [place] [address] Social History Tobacco Use Types Packs/Day Years [...] drink first t manav in the morning (EYE-UG DESIGNER) to steady your nerves or to [...] [facility] st Contact Info) Description 02/02/2025 9:30 AM EDT Appointment PAV A Interventional Radiology [address] [place] [address] 02/10/2025 8:30 AM EDT Clinical Support P[facility] CC Hematology/BMT and Cellular Therapy Program [address] [address] 02/10/2025 9:00 AM EDT Office Visit PAV Hematology/BMT and Cellular Therapy Program [address] [address] Elaina Boss, PA 800 [facility] [address] [place] [address] 02/10/2025 10:30 AM EDT Appointment [facility] 1 7[address] [place] [address] 02/11/2025 2:00 PM EDT Appointment [facility] 1 7[address] [place] [address] 02/12/2025 2:00 PM EDT Appointment [facility] 1 [address] [place] [address] 02/13/2025 2:00 PM EDT Appointment [facility] 1 [address] [place] [address] 02/14/2025 2:00 PM EDT Appointment [facility] 1 7[address] [place] [address] 03/10/2025 8:30 AM EDT Clinical Support P[facility] CC Hematology/BMT and Cellular Therapy Program [address] [place] [address] 03/10/2025 9:00 AM EDT Office Visit P[facility] CC Hematology/BMT and Cellular Therapy Program 750 [facility] [place] [place] [address] Isaura Wynn, VEGETABLE GRADER 800 [facility] [address] [place] [address] 03/10/2025 11:20 AM EDT Office Visit Pav CC Head, Neck & Respiratory 800 [facility], 2nd [place] [address] Elsa Razo, VEGETABLE GRADER 800 [place] [address] documented as of this encounter Visit Diagnoses [...] as of this encounter Care Teams Commercial Sheet Metal Foreman Relationship Specialty Start Date End Date Zhao Harris MD [address] [place] [address] [phone] PCP - General 12/03/20 documented as of this encounter
--- OUTSIDE RECORDS SUMMARY | 2025-01-13 10:00 | XMS_ITS | Encounter Summary ---
Author Organization [facility] Address [address] [place] [address] Care Team Providers Care Certified Registered Locksmith Name Role Phone Zhao Harris MD Primary Care Provider [phone] Reason for Referral * Imaging (Routine) - Authorized Specialty Diagnoses / Procedures Referred By Justice mcgee Referred To Contact Radiology Diagnoses Myelodysplasia (myelodysplastic syndrome) (CMS/HCC) Procedures CT Guided Asp and Biopsy Bone Marrow Consult to Interventional Radiology Virgen Vargas MD [address] [facility] [address] [address] Phone: tel: fax: Referral ID Status Reason Start Date Expiration Date V isits Requested Visits Authorized [id number] Authorized 01/15/2025 07/17/2026 1 1 * Genetic Testing (Routine) - Authorized Specialty Diagnoses / Procedures Referred By Justice mcgee Referred To Contact Lab Diagnoses Myelodysplasia (myelodysplastic syndrome) (CMS/HCC) Procedures Cytogenetics Testing, Oncology Virgen Vargas MD [address] [facility] [address] [address] Phone: tel: fax: Referral ID Status Reason Start Date Expiration Date V isits Requested Visits Authorized [id number] Authorized 01/13/2025 07/15/2026 1 2 * Genetic Testing (Routine) - Authorized Specialty Diagnoses / Procedures Referred By Justice mcgee Referred To Contact Lab Diagnoses Myelodysplasia (myelodysplastic syndrome) (CMS/HCC) Procedures Leukemia/Lymphoma - Immunophenotyping by Flow Cytometry Virgen Vargas MD [address] [address] Phone: tel: fax: Referral ID Status Reason Start Date Expiration Date V isits Requested Visits Authorized [id number] Authorized 01/13/2025 07/15/2026 1 1 * Genetic Testing (Routine) - Authorized Specialty Diagnoses / Procedures Referred By Justice mcgee Referred To Contact Lab Diagnoses Myelodysplasia (myelodysplastic syndrome) (CMS/HCC) Procedures Bone marrow exam Virgen Vargas MD [address] [address] Phone: tel: fax: Referral ID Status Reason Start Date Expiration Date V isits Requested Visits Authorized [id number] Authorized 01/13/2025 07/15/2026 1 1 Reason for Visit * Reason Comments Follow-up Encounter Details Date Type Department Care Team (Latest Contact Info) Description 01/13/2025 10:00 AM EDT Office Visit [facility] Hematology/BMT and Cellular Therapy Program [address] [place] [address] Isaura Wynn APRN [address] [address] Myelodysplasia (myelodysplastic syndrome) (CMS/HCC) (Primary [...] drink first t manav in the morning (E[employer]-IDENT[employer]IER [employer]ORSE) to steady your nerves or to get [...] Not at all 01/13/2025 10:14 AM EDT Harney, Cecelia W Feeling down, depressed, or hopeless Several days 01/13/2025 10:14 AM EDT Harney, Cecelia W Patient Health Questionnaire -2 Score 1 01/13/2025 10:14 AM EDT Harney, Cecelia W * Calculated C-SSRS Risk Score (Lifetime/Recent) Answer Date of Assessment Author No Risk Indicated 01/13/2025 10:14 AM EDT Chikarthik vidal Cecelia W * Question Answer Date of Assessment Author 1. Wish to be (Past 1 Month) No 025 10:14 AM EDT Harney, Cecelia W 2. Non-Specific Active Suici berry [...] 3: 12/16/24 Plan: Venetoclax rx sent to [facility]. Refills due monthly. Patient will return to clinic in 4 weeks. Will follow-up at that time. * Progress Notes - Isaura Wynn, EQUIPMENT PROCESSER [employer]ORAGE - 01/13/2025 10:00 AM EDT HEMATOLOGY ONCOLOGY [...] a preserved mata-T cell profile with a CD4:OA1poplm of 2.7:1. Polyclonal B-cells (3%) and a small plasma cell population (0.6%) were also identified. Cytogenetics: Normal. Molecular Testing: PCR for NPM1 and FLT3 mutations are negative. Next-generation sequencing (NGS) myeloid panel: ASXL1 - [id number] - VAF 25% TP53 - p.[id number] - VAF 36% U2AF1 - [id number] - VAF 33% 10/20/2024- started treatment with [...] [place]. 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 The third, and most promising, option would be enrollment in a clinical trial, ideally one that targets TP53- mutant disease or incorporates novel agents. He went to [facility] for a second opinion and to discuss [...] daily., Disp: 90 tablet, Rfl: 3 HYDROcodone-acetaminophen ([facility]) 5-325 MG tablet, Take 1 tablet by [...] ([facility] st Contact Info) Description 02/02/2025 9:30 AM EDT Appointment [facility] A Interventional Radiology [address] [place] [address] 02/10/2025 8:30 AM EDT Clinical Support [facility] Hematology/BMT and Cellular Therapy Program [address] [address] 02/10/2025 9:00 AM EDT Office Visit [facility] Hematology/BMT and Cellular Therapy Program [address] [phone] Elaina Boss PA 800 [facility] [address] [place] [phone] 02/10/2025 10:30 AM EDT Appointment [facility] In[facility] 1 [address] [place] [address] 02/11/2025 2:00 PM EDT Appointment [facility] 1 [address] [place] [address] 02/12/2025 2:00 PM EDT Appointment [facility] 1 [address] [place] [phone] 02/13/2025 2:00 PM EDT Appointment [facility] 1 [address] [place] [phone] 02/14/2025 2:00 PM EDT Appointment [facility] 1 [address] [place] [address] 03/10/2025 8:30 AM EDT Clinical Support [facility] Hematology/BMT and Cellular Therapy Program [address] [phone] 03/10/2025 9:00 AM EDT Office Visit [facility] Hematology/BMT and Cellular Therapy Program [address] [phone] Isaura Wynn, EQUIPMENT PROCESSER [employer]AGE 800 [facility] [address] [place] [phone] 03/10/2025 11:20 AM EDT Office Visit [facility] CC Head, Neck & Respiratory 800 [facility], [address]nd [place] [phone] Elsa Razo, EQUIPMENT PROC[employer]ER [employer]AGE [address] [place] [phone] Scheduled Orders Name Type Priority Associated Diagnoses Order Schedule CBC and differential Lab Routine Myelodysplasia (myelodysplastic syndrome) (CMS/HCC) Expected: 01/20/2025, Expires: 01/20/2026 Comprehensive metabolic panel Lab Routine Myelodysplasia (myelodysplastic syndrome) ([facility]/HCC) Expected: 01/20/2025, Expires: 01/20/2026 CBC and differential Lab Routine Myelodysplasia (myelodysplastic syndrome) ([facility]/HCC) Expected: 01/22/2025, Expires: 01/22/2026 CBC and differential Lab Routine Myelodysplasia (myelodysplastic syndrome) ([facility]/HCC) Expected: 01/24/2025, Expires: 01/24/2026 CBC and differential Lab Routine Myelodysplasia (myelodysplastic syndrome) ([facility]/HCC) Expected: 01/27/2025, Expires: 01/27/2026 Comprehensive metabolic panel Lab Routine Myelodysplasia (myelodysplastic syndrome) ([facility]) Expected: 01/27/2025, Expires: 01/27/2026 CBC and differential Lab Routine Myelodysplasia (myelodysplastic syndrome) ([facility]) Expected: 01/29/2025, Expires: 01/29/2026 CBC and differential Lab Routine Myelodysplasia (myelodysplastic syndrome) ([facility]) Expected: 01/31/2025, Expires: 01/31/2026 CBC and differential Lab Routine Myelodysplasia (myelodysplastic syndrome) ([facility]) Expected: 02/03/2025, Expires: 02/03/2026 Comprehensive metabolic panel Lab Routine Myelodysplasia (myelodysplastic syndrome) ([facility]) Expected: 02/03/2025, Expires: 02/03/2026 CBC and differential Lab Routine Myelodysplasia (myelodysplastic syndrome) ([facility]) Expected: 02/05/2025, Expires: 02/05/2026 CBC and differential Lab Routine Myelodysplasia (myelodysplastic syndrome) ([facility]) Expected: 02/07/2025, Expires: 02/07/2026 Bone marrow exam Pathology and Cytology Routine Myelodysplasia (myelodysplastic syndrome) ([facility]) Expected: 01/13/2025 (Approximate), Expires: 07/17/2026 Leukemia/Lymphoma - Immunophenotyping by Flow Cytometry Lab Routine Myelodysplasia (myelodysplastic syndrome) ([facility]) Expected: 01/13/2025 (Approximate), Expires: 07/17/2026 Cytogenetics Testing, [...] LAB HEMATOLOGY METHOD 01/17/2025 9:41 AM EDT [facility] RBC Count 2.55(L) 4.60 - 6.10 10*6/uL LAB HEMATOLOGY METHOD 01/17/2025 9:41 AM EDT [facility] HGB 7.6(L) 13.7 - 17.5 g/dL LAB HEMATOLOGY METHOD 01/17/2025 9:41 AM EDT [facility] HCT 21.6(L) 40.0 - 51.0 % LAB HEMATOLOGY METHOD 01/17/2025 9:41 AM EDT [facility] Platelet Count 23(L) 155 - 369 10*3/uL LAB HEMATOLOGY METHOD 01/17/2025 9:41 AM EDT [facility] MCV 85 79 - 98 fL LAB HEMATOLOGY METHOD 01/17/2025 9:41 AM EDT [facility] MCH 29.8 26.0 - 32.0 pg LAB HEMATOLOGY METHOD 01/17/2025 9:41 AM EDT [facility] MCHC 35.2 30.7 - 35.5 g/dL LAB HEMATOLOGY METHOD 01/17/2025 9:41 AM EDT [facility] RDW 14.2 11.5 - 14.5 % LAB HEMATOLOGY METHOD 01/17/2025 9:41 AM EDT [facility] MPV 9.0 8.8 - 12.5 fL LAB HEMATOLOGY METHOD 01/17/2025 9:41 AM EDT [facility] nRBC 0.0 <=0.0 per 100 WBCs LAB HEMATOLOGY METHOD 01/17/2025 9:41 AM EDT [facility] Differential Type Automated LAB HEMATOLOGY METHOD 01/17/2025 9:41 AM EDT [facility] Neutrophils % 7 % LAB HEMATOLOGY METHOD 01/17/2025 9:41 AM EDT [facility] Lymphocytes % 91 % LAB HEMATOLOGY METHOD 01/17/2025 9:41 AM EDT [facility] Monocytes % 2 % LAB HEMATOLOGY METHOD 01/17/2025 9:41 AM EDT [facility] Eosinophils % 0 % LAB HEMATOLOGY METHOD 01/17/2025 9:41 AM EDT [facility] Basophils % 0 % LAB HEMATOLOGY METHOD 01/17/2025 9:41 AM EDT [facility] Immature Granulocytes % 0 % LAB HEMATOLOGY METHOD 01/17/2025 9:41 AM EDT [facility] Neutrophils Absolute 0.04(LL) 1.60 - 6.10 10*3/uL LAB HEMATOLOGY METHOD 01/17/2025 9:41 AM EDT [facility] Lymphocytes Absolute 0.49(L) 1.20 - 3.90 10*3/uL LAB HEMATOLOGY METHOD 01/17/2025 9:41 AM EDT [facility] Monocytes Absolute 0.01(L) 0.30 - 0.90 10*3/uL LAB HEMATOLOGY METHOD 01/17/2025 9:41 AM EDT [facility] Eosinophils Absolute 0.00 0.00 - 0.50 10*3/uL LAB HEMATOLOGY METHOD 01/17/2025 9:41 AM EDT [facility] Basophils Absolute 0.00 0.00 - 0.10 10*3/uL LAB HEMATOLOGY METHOD 01/17/2025 9:41 AM EDT [facility] Immature Granulocytes Absolute 0.00 0.00 - 0.06 10*3/uL LAB HEMATOLOGY METHOD 01/17/2025 9:41 AM EDT [facility] Blood Blood sample taken from central line / Unknown (Port) Long-term Catheter / Unknown 01/17/2025 8:03 AM EDT 01/17/2025 8:07 AM EDT Narrative [facility] - 01/17/2025 9:41 AM EDT Therapeutic decision making should be based on absolute values, rather than percentages. Virgen Vargas MD LAB BLOOD ORDERABLES Final Re sult Performing Organization Address City/[facility]/ZIP Co de Phone Number [facility] [address] [place] [address] * LACTATE DEHYDROGENASE (01/15/2025 8:17 AM EDT) LDH, Plasma 192 116 - 250 U/L 01/15/2025 9:19 AM EDT [facility] Blood Blood sample taken from central line / Unknown (Port) Long-term Catheter / Unknown 01/15/2025 8:17 AM EDT 01/15/2025 8:47 AM EDT Virgen Vargas MD LAB BLOOD ORDERABLES Final Re sult Performing Organization Address [facility] [place] [address] * Magnesium (01/15/2025 8:17 AM EDT) Magnesium, Plasma 2.2 1.9 - 2.4 mg/dL 01/15/2025 9:19 AM EDT [facility] Blood Blood sample taken from central line / Unknown (Port) Long-term Catheter / Unknown 01/15/2025 8:17 AM EDT 01/15/2025 8:47 AM EDT Virgen Vargas MD LAB BLOOD ORDERABLES Final Re sult Performing Organization Address [facility] Co de Phone Number [facility] [address] [place] [address] * Phosphorus (01/15/2025 8:17 AM EDT) Phosphorus, Plasma 3.1 2.5 - 4.5 mg/dL 01/15/2025 9:19 AM EDT [facility] Blood Blood sample taken from central line / Unknown (Port) Long-term Catheter / Unknown 01/15/2025 8:17 AM EDT 01/15/2025 8:47 AM EDT Virgen Vargas MD LAB BLOOD ORDERABLES Final Re sult Performing Organization Address [facility]/ZIP Co de Phone Number [facility] [address] [place] [address] * (ABNORMAL) Uric acid (01/15/2025 8:17 AM EDT) Uric Acid, Plasma 3.0(L) 3.7 - 8.0 mg/dL 01/15/2025 9:19 AM EDT [facility] Blood Blood sample taken from central line / Unknown (Port) Long-term Catheter / Unknown 01/15/2025 8:17 AM EDT 01/15/2025 8:47 AM EDT Virgen Vargas MD LAB BLOOD ORDERABLES Final Re sult Performing Organization Address [facility] Co de Phone Number [facility] [address] [place] [address] * (ABNORMAL) BASIC METABOLIC PANEL (01/15/2025 8:17 AM EDT) Glucose, Plasma 96 74 - 99 mg/dL 01/15/2025 9:19 AM EDT [facility] BUN, Plasma 12 8 - 23 mg/dL 01/15/2025 9:19 AM EDT [facility] Creatinine, Plasma 0.71 0.70 - 1.20 mg/dL 01/15/2025 9:19 AM EDT [facility] BUN/Creatinine Ratio 17 01/15/2025 9:19 AM EDT [facility] Sodium, Plasma 139 136 - 145 mmol/L 01/15/2025 9:19 AM EDT [facility] Potassium, Plasma 4.1 3.6 - 4.9 mmol/L 01/15/2025 9:19 AM EDT [facility] Chloride, Plasma 108(H) 97 - 107 mmol/L 01/15/2025 9:19 AM EDT [facility] CO2, Plasma 21(L) 22 - 29 mmol/L 01/15/2025 9:19 AM EDT [facility] Anion Gap 10 6 - 16 mmol/L 01/15/2025 9:19 AM EDT [facility] Total Calcium, Plasma 8.9 8.9 - 10.2 mg/dL 01/15/2025 9:19 AM EDT [facility] eGFRcr 99.3 mL/min/1.7 3m*2 01/15/2025 9:19 AM EDT [facility] Comment:Reported eGFRcr in m L/min/1.73m2 is based the CKD-EPI 2020 equation that does not use a race coefficient. Blood Blood sample taken from central line / Unknown (Port) Long-term Catheter / Unknown 01/15/2025 8:17 AM EDT 01/15/2025 8:47 AM EDT us Virgen Vargas MD LAB BLOOD ORDERABLES Final Re sult [facility] [address] [place] [address] * (ABNORMAL) CBC and differential (01/15/2025 8:17 AM EDT) WBC Count 0.53(LL) 3.70 - 10.30 10*3/uL LAB HEMATOLOGY METHOD 01/15/2025 11:53 AM EDT [facility] RBC Count 2.82(L) 4.60 - 6.10 10*6/uL LAB HEMATOLOGY METHOD 01/15/2025 11:53 AM EDT [facility] HGB 8.2(L) 13.7 - 17.5 g/dL LAB HEMATOLOGY METHOD 01/15/2025 11:53 AM EDT [facility] HCT 24.0(L) 40.0 - 51.0 % LAB HEMATOLOGY METHOD 01/15/2025 11:53 AM EDT [facility] Platelet Count 18(LL) 155 - 369 10*3/uL LAB HEMATOLOGY METHOD 01/15/2025 11:53 AM EDT [facility] MCV 85 79 - 98 fL LAB HEMATOLOGY METHOD 01/15/2025 11:53 AM EDT [facility] MCH 29.1 26.0 - 32.0 pg LAB HEMATOLOGY METHOD 01/15/2025 11:53 AM EDT [facility] MCHC 34.2 30.7 - 35.5 g/dL LAB HEMATOLOGY METHOD 01/15/2025 11:53 AM EDT [facility] RDW 14.2 11.5 - 14.5 % LAB HEMATOLOGY METHOD 01/15/2025 11:53 AM EDT [facility] MPV 9.3 8.8 - 12.5 fL LAB HEMATOLOGY METHOD 01/15/2025 11:53 AM EDT [facility] nRBC 0.0 <=0.0 per 100 WBCs LAB HEMATOLOGY METHOD 01/15/2025 11:53 AM EDT [facility] Differential Type Automated LAB HEMATOLOGY METHOD 01/15/2025 11:53 AM EDT [facility] Neutrophils % 8 % LAB HEMATOLOGY METHOD 01/15/2025 11:53 AM EDT [facility] Lymphocytes % 88 % LAB HEMATOLOGY METHOD 01/15/2025 11:53 AM EDT [facility] Monocytes % 4 % LAB HEMATOLOGY METHOD 01/15/2025 11:53 AM EDT [facility] Eosinophils % 0 % LAB HEMATOLOGY METHOD 01/15/2025 11:53 AM EDT [facility] Basophils % 0 % LAB HEMATOLOGY METHOD 01/15/2025 11:53 AM EDT [facility] Immature Granulocytes % 0 % LAB HEMATOLOGY METHOD 01/15/2025 11:53 AM EDT [facility] Neutrophils Absolute 0.04(LL) 1.60 - 6.10 10*3/uL LAB HEMATOLOGY METHOD 01/15/2025 11:53 AM EDT [facility] Lymphocytes Absolute 0.47(L) 1.20 - 3.90 10*3/uL LAB HEMATOLOGY METHOD 01/15/2025 11:53 AM EDT [facility] Monocytes Absolute 0.02(L) 0.30 - 0.90 10*3/uL LAB HEMATOLOGY METHOD 01/15/2025 11:53 AM EDT [facility] Eosinophils Absolute 0.00 0.00 - 0.50 10*3/uL LAB HEMATOLOGY METHOD 01/15/2025 11:53 AM EDT [facility] Basophils Absolute 0.00 0.00 - 0.10 10*3/uL LAB HEMATOLOGY METHOD 01/15/2025 11:53 AM EDT [facility] Immature Granulocytes Absolute 0.00 0.00 - 0.06 10*3/uL LAB HEMATOLOGY METHOD 01/15/2025 11:53 AM EDT [facility] Blood Blood sample taken from central line / Unknown (Port) Long-term Catheter / Unknown 01/15/2025 8:17 AM EDT 01/15/2025 8:59 AM EDT Narrative [facility] - 01/15/2025 11:53 AM EDT Therapeutic decision making should be based on absolute values, rather than percentages. Virgen Vargas MD LAB BLOOD ORDERABLES Final Re sult Performing Organization Address City/[facility]/ZIP Co de Phone Number [facility] [address] [place] [address] * LACTATE DEHYDROGENASE (01/14/2025 9:06 AM EDT) LDH, Plasma 195 116 - 250 U/L 01/14/2025 9:58 AM EDT [facility] Blood Blood sample taken from central line / Unknown (Port) Long-term Catheter / Unknown 01/14/2025 9:06 AM EDT 01/14/2025 9:25 AM EDT Virgen Vargas MD LAB BLOOD ORDERABLES Final Re sult [facility] [address] [place] [address] * Magnesium (01/14/2025 9:06 AM EDT) Magnesium, Plasma 2.2 1.9 - 2.4 mg/dL 01/14/2025 9:58 AM EDT [facility] Blood Blood sample taken from central line / Unknown (Port) Long-term Catheter / Unknown 01/14/2025 9:06 AM EDT 01/14/2025 9:25 AM EDT Virgen Vargas MD LAB BLOOD ORDERABLES Final Re sult Performing Organization Address [facility]/ZIP Co de Phone Number [facility] [address] [place] [address] * Phosphorus (01/14/2025 9:06 AM EDT) Phosphorus, Plasma 3.6 2.5 - 4.5 mg/dL 01/14/2025 9:58 AM EDT [facility] Blood Blood sample taken from central line / Unknown (Port) Long-term Catheter / Unknown 01/14/2025 9:06 AM EDT 01/14/2025 9:25 AM EDT Virgen Vargas MD LAB BLOOD ORDERABLES Final Re sult Performing Organization Address [facility] Co de Phone Number [facility] [address] [place] [address] * (ABNORMAL) Uric acid (01/14/2025 9:06 AM EDT) Uric Acid, Plasma 3.0(L) 3.7 - 8.0 mg/dL 01/14/2025 9:58 AM EDT [facility] Blood Blood sample taken from central line / Unknown (Port) Long-term Catheter / Unknown 01/14/2025 9:06 AM EDT 01/14/2025 9:25 AM EDT Virgen Vargas MD LAB BLOOD ORDERABLES Final Re sult Performing Organization Address [facility] Co de Phone Number [facility] [address] [place] [address] * (ABNORMAL) BASIC METABOLIC PANEL (01/14/2025 9:06 AM EDT) Glucose, Plasma 101(H) 74 - 99 mg/dL 01/14/2025 9:58 AM EDT [facility] BUN, Plasma 9 8 - 23 mg/dL 01/14/2025 9:58 AM EDT [facility] Creatinine, Plasma 0.71 0.70 - 1.20 mg/dL 01/14/2025 9:58 AM EDT [facility] BUN/Creatinine Ratio 13 01/14/2025 9:58 AM EDT [facility] Sodium, Plasma 140 136 - 145 mmol/L 01/14/2025 9:58 AM EDT [facility] Potassium, Plasma 4.3 3.6 - 4.9 mmol/L 01/14/2025 9:58 AM EDT [facility] Chloride, Plasma 110(H) 97 - 107 mmol/L 01/14/2025 9:58 AM EDT [facility] CO2, Plasma 21(L) 22 - 29 mmol/L 01/14/2025 9:58 AM EDT [facility] Anion Gap 9 6 - 16 mmol/L 01/14/2025 9:58 AM EDT [facility] Total Calcium, Plasma 8.6(L) 8.9 - 10.2 mg/dL 01/14/2025 9:58 AM EDT [facility] eGFRcr 99.3 mL/min/1.7 3m*2 01/14/2025 9:58 AM EDT [facility] Comment:Reported eGFRcr in m L/min/1.73m2 is based the CKD-EPI 2020 equation that does not use a race coefficient. Blood Blood sample taken from central line / Unknown (Port) Long-term Catheter / Unknown 01/14/2025 9:06 AM EDT 01/14/2025 9:25 AM EDT us Virgen Vargas MD LAB BLOOD ORDERABLES Final Re sult [facility] [address] [place] [address] * (ABNORMAL) Comprehensive Metabolic Panel, Plasma (01/13/2025 10:02 AM EDT) Glucose, Plasma 104(H) 74 - 99 mg/dL 01/13/2025 10:56 AM EDT [facility] BUN, Plasma 9 8 - 23 mg/dL 01/13/2025 10:56 AM EDT [facility] Creatinine, Plasma 0.72 0.70 - 1.20 mg/dL 01/13/2025 10:56 AM EDT [facility] BUN/Creatinine Ratio 13 01/13/2025 10:56 AM EDT [facility] Sodium, Plasma 140 136 - 145 mmol/L 01/13/2025 10:56 AM EDT [facility] Potassium, Plasma 4.5 3.6 - 4.9 mmol/L 01/13/2025 10:56 AM EDT [facility] Chloride, Plasma 109(H) 97 - 107 mmol/L 01/13/2025 10:56 AM EDT [facility] CO2, Plasma 21(L) 22 - 29 mmol/L 01/13/2025 10:56 AM EDT [facility] Anion Gap 10 6 - 16 mmol/L 01/13/2025 10:56 AM EDT [facility] Total Calcium, Plasma 8.9 8.9 - 10.2 mg/dL 01/13/2025 10:56 AM EDT [facility] Total Protein 6.9 6.3 - 7.9 g/dL 01/13/2025 10:56 AM EDT [facility] Albumin, Plasma 4.1 3.5 - 5.2 g/dL 01/13/2025 10:56 AM EDT [facility] AST, Plasma 84(H) 10 - 50 U/L 01/13/2025 10:56 AM EDT [facility] ALT, Plasma 95(H) 10 - 50 U/L 01/13/2025 10:56 AM EDT [facility] Alkaline Phosphatase, Plasma 83 40 - 115 U/L 01/13/2025 10:56 AM EDT [facility] Total Bilirubin, Plasma 0.7 0.2 - 1.1 mg/dL 01/13/2025 10:56 AM EDT [facility] eGFRcr 98.9 mL/min/1.7 3m*2 01/13/2025 10:56 AM EDT [facility] Comment:Reported eGFRcr in m L/min/1.73m2 is based the CKD-EPI 2020 equation that does not use a race coefficient. Blood Blood sample taken from central line / Unknown (Port) Long-term Catheter / Unknown 01/13/2025 10:02 AM EDT 01/13/2025 10:24 AM EDT [facility] [employer] BLOOD ORDERABLES Final Res ult [facility] [address] [place] [address] * (ABNORMAL) CBC and Differential (01/13/2025 10:02 AM EDT) WBC Count 0.63(LL) 3.70 - 10.30 10*3/uL LAB HEMATOLOGY METHOD 01/13/2025 10:50 AM EDT [facility] RBC Count 2.94(L) 4.60 - 6.10 10*6/uL LAB HEMATOLOGY METHOD 01/13/2025 10:50 AM EDT [facility] HGB 8.9(L) 13.7 - 17.5 g/dL LAB HEMATOLOGY METHOD 01/13/2025 10:50 AM EDT [facility] HCT 24.7(L) 40.0 - 51.0 % LAB HEMATOLOGY METHOD 01/13/2025 10:50 AM EDT [facility] Platelet Count 5(LL) 155 - 369 10*3/uL LAB HEMATOLOGY METHOD 01/13/2025 10:50 AM EDT [facility] MCV 84 79 - 98 fL LAB HEMATOLOGY METHOD 01/13/2025 10:50 AM EDT [facility] MCH 30.3 26.0 - 32.0 pg LAB HEMATOLOGY METHOD 01/13/2025 10:50 AM EDT [facility] MCHC 36.0(H) 30.7 - 35.5 g/dL LAB HEMATOLOGY METHOD 01/13/2025 10:50 AM EDT [facility] RDW 14.4 11.5 - 14.5 % LAB HEMATOLOGY METHOD 01/13/2025 10:50 AM EDT [facility] MPV LAB HEMATOLOGY METHOD 01/13/2025 10:50 AM EDT [facility] Comment:Not Measured nRBC 0.0 <=0.0 per 100 WBCs LAB HEMATOLOGY METHOD 01/13/2025 10:50 AM EDT [facility] Differential Type Automated LAB HEMATOLOGY METHOD 01/13/2025 10:50 AM EDT [facility] Neutrophils % 3 % LAB HEMATOLOGY METHOD 01/13/2025 10:50 AM EDT [facility] Lymphocytes % 94 % LAB HEMATOLOGY METHOD 01/13/2025 10:50 AM EDT [facility] Monocytes % 3 % LAB HEMATOLOGY METHOD 01/13/2025 10:50 AM EDT [facility] Eosinophils % 0 % LAB HEMATOLOGY METHOD 01/13/2025 10:50 AM EDT [facility] Basophils % 0 % LAB HEMATOLOGY METHOD 01/13/2025 10:50 AM EDT [facility] Immature Granulocytes % 0 % LAB HEMATOLOGY METHOD 01/13/2025 10:50 AM EDT [facility] Neutrophils Absolute 0.02(LL) 1.60 - 6.10 10*3/uL LAB HEMATOLOGY METHOD 01/13/2025 10:50 AM EDT [facility] Lymphocytes Absolute 0.59(L) 1.20 - 3.90 10*3/uL LAB HEMATOLOGY METHOD 01/13/2025 10:50 AM EDT [facility] Monocytes Absolute 0.02(L) 0.30 - 0.90 10*3/uL LAB HEMATOLOGY METHOD 01/13/2025 10:50 AM EDT [facility] Eosinophils Absolute 0.00 0.00 - 0.50 10*3/uL LAB HEMATOLOGY METHOD 01/13/2025 10:50 AM EDT [facility] Basophils Absolute 0.00 0.00 - 0.10 10*3/uL LAB HEMATOLOGY METHOD 01/13/2025 10:50 AM EDT [facility] Immature Granulocytes Absolute 0.00 0.00 - 0.06 10*3/uL LAB HEMATOLOGY METHOD 01/13/2025 10:50 AM EDT [facility] Blood Blood sample taken from central line / Unknown (Port) Long-term Catheter / Unknown 01/13/2025 10:02 AM EDT 01/13/2025 10:15 AM EDT [facility] - 01/13/2025 10:50 AM EDT Therapeutic decision making should be based on absolute values, rather than percentages. us Isaura Wynn [employer] LAB BLOOD ORDERABLES Final Res ult [facility] [address] [place] [address] documented in this encounter Visit Diagnoses Diagnosis [...] as of this encounter Care Teams Certified Registered Locksmith Relationship Specialty Start Date End Date Zhao Harris MD [address] [place] [address] PCP - General 12/03/20 documented as of this encounter
--- OUTSIDE RECORDS SUMMARY | 2025-01-13 11:30 | XMS_ITS | Encounter Summary ---
Author Organization [facility] Address [address] [place] [address] Care Team Providers Care Sheriff Deputy Name Role Phone Zhao Harris MD Primary Care Provider + [phone] Reason for Visit * Episode Based Medications (Routine) - Authorized Specialty Diagnoses / Procedures Referred By Justice mcgee Referred To Contact Diagnoses Myelodysplasia (myelodysplastic syndrome) (CMS/HCC) Procedures Decitabine Daily x 5 / Venetoclax Every 28 Days Virgen Vargas MD 800 [facility] [address] [address] Phone: tel: fax: Virgen Vargas MD 800 [facility] [address] [address] Phone: tel: fax: Referral ID Status Reason Start Date Expiration Date V isits Requested Visits Authorized [id number] Authorized 01/13/2025 07/15/2026 1 30 Encounter Details Date Type Department Care Team (Latest Contact Info) Description 01/13/2025 11:30 AM EDT - 01/13/2025 11:59 PM EDT Hospital Encounter PAV H Infusion 800 [place] [phone] Myelodysplasia (myelodysplastic syndrome) (CMS/HCC) (Primary Dx); Thrombocytopenia [...] drink first t manav in the morning (EYE-KST OPERATOR) to steady your nerves or to [...] daily. 90 tablet 3 09/11/2024 HYDROcodone-aceta minophen ([place]) 5-325 MG tablet Take 1 tablet by [...] Appointment PAV A Interventional Radiology [address] [place] [address] 02/10/2025 8:30 AM EDT Clinical Support PAV Hematology/BMT and Cellular Therapy Program [address] [address] 02/10/2025 9:00 AM EDT Office Visit PAV Hematology/BMT and Cellular Therapy Program [address] [address] Elaina Boss PA 800 [facility] [address] [place] [address] 02/10/2025 10:30 AM EDT Appointment [facility] Infusion Clinic 1 744 [place] [address] 02/11/2025 2:00 PM EDT Appointment [facility] Infusion Clinic 1 7[address] [place] [address] 02/12/2025 2:00 PM EDT Appointment [facility] Infusion Clinic 1 7[address] [place] [address] 02/13/2025 2:00 PM EDT Appointment [facility] Infusion Clinic 1 7[address] [place] [address] 02/14/2025 2:00 PM EDT Appointment [facility] Infusion Clinic 1 7[address] [place] [address] 03/10/2025 8:30 AM EDT Clinical Support PAV CC Hematology/BMT and Cellular Therapy Program [address] [address] 03/10/2025 9:00 AM EDT Office Visit PAV Hematology/BMT and Cellular Therapy Program [address] [address] Isaura Wynn, PATCH MACHINE OPERATOR 800 [facility] [address]st [place] [address] 03/10/2025 11:20 AM EDT Office Visit Pav CC Head, Neck & Respiratory 800 [facility], 2nd [place] [address] Elsa Razo, PATCH MACHINE OPERATOR 800 [place] [address] documented as of this encounter Procedures Procedure [...] Transfuse platelets (01/13/2025 2:36 PM EDT) Result [facility] Kayli Daly Janetallegraaxel CHIU BLOOD TRANSFUSION ORDERA BLES Final Result * Transfuse platelets: 1 Units (01/13/2025 2:36 PM EDT) Kayli Daly Janetallegraaxel CHIU BLOOD TRANSFUSION ORDERA BLES Final Result * (ABNORMAL) Platelet count (01/13/2025 2:07 PM EDT) Platelet Count 39(L) 155 - 369 10*3/uL LAB HEMATOLOGY METHOD 01/13/2025 2:37 PM EDT [facility] Blood Venous blood specimen / Unknown Venipuncture / Unknown 01/13/2025 2:07 PM EDT 01/13/2025 2:30 PM EDT Result [facility] Virgen Vargas MD LAB BLOOD ORDERABLES Final Re sult [facility] [address] [place] [address] * Exception to Standard Practice, Pathologist Interpretation [...] ORDERAB LES Final Result Performing Organization Address [facility] de Phone Number BLOOD BANK [address] * Prepare Leukocyte Reduced Platelets: 1 Units (01/13/2025 12:07 PM EDT) Product Code [id number] CH BLOO D BANK Dispense Status Transfused BLOOD BANK Blood Expiration Date [id number] BLOOD BANK Unit Number [id number] CH B LOOD BANK Product Blood Type 6200 BLOOD BANK Blood Type A+ BLOOD BANK Blood Venous blood specimen / Unknown Kayli CHIU BLOOD BANK PRODUCT ORDER VIKAS Final Result Performing Organization Address [facility] de Phone Number BLOOD BANK [address] documented in this encounter Visit Diagnoses [...] documented as of this encounter Care Teams Sheriff Deputy Relationship Specialty Start Date End Date Zhao Harris MD [address] [place] [address] PCP - General 12/03/20 documented as of this encounter
--- OUTSIDE RECORDS SUMMARY | 2025-01-14 08:07 | XMS_ITS | Encounter Summary ---
Author Organization [facility] Address [address] [place] [address] Care Team Providers Care Urologist Md Name Role Phone Zhao Harris MD Primary Care Provider + [phone] Reason for Visit * Episode Based Medications (Routine) - Authorized Specialty Diagnoses / Procedures Referred By Justice mcgee Referred To Contact Diagnoses Myelodysplasia (myelodysplastic syndrome) (CMS/HCC) Procedures Decitabine Daily x 5 / Venetoclax Every 28 Days Virgen Vargas MD [address] [address] Phone: tel: fax: Virgen Vargas MD [address] [address] Phone: tel: fax: Referral ID Status Reason Start Date Expiration Date V isits Requested Visits Authorized [id number] Authorized 01/13/2025 07/15/2026 1 30 Encounter Details Date Type Department Care Team (Latest Contact Info) Description 01/14/2025 8:07 AM EDT - 01/14/2025 11:59 PM EDT Hospital Encounter [facility] 1 [address] [place] [phone] Myelodysplasia (myelodysplastic syndrome) (CMS/HCC) (Primary Dx) Discharge [...] drink first t manav in the morning (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-PROOF LOAD MECHANIC) to steady your nerves or to [...] Sign Reading Time Taken Comments Blood Pressure 113/73 01/14/2025 8:40 AM EDT Pulse 68 01/14/2025 8:40 AM EDT Temperature 36.6 C (97.9 F) 01/14/2025 8:40 AM EDT Respiratory Rate 17 01/14/2025 8:40 AM EDT Oxygen Saturation 99% 01/14/2025 8:40 AM EDT Inhaled Oxygen Concentration - - Weight 82.9 kg (182 lb 12.2 oz) 01/14/2025 8:40 AM EDT Height 170.2 cm (5' 7 ) 01/14/2025 8:40 AM EDT Body Mass Index 28.62 01/14/2025 8:40 AM EDT documented in this encounter Medications [...] 5 MG tabletIndications :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 28 tablet 01/13/2025 5 venetoclax (Venclexta) 50 MG tabletIndications :Myelodysplasia (myelodysplastic syndrome) (CMS/HCC) Take 1 tablet by mouth daily for 14 days. Take on days 1-14 of a 28 day cycle in combination with other tablets for a total of 70mg daily. 14 tablet 01/13/2025 5 documented as of this encounter Plan of Treatment Upcoming Encounters Date Type Department Care Team ([facility] st Contact Info) Description 02/02/2025 9:30 AM EDT Appointment [facility] A Interventional Radiology [address] [place] [address] 02/10/2025 8:30 AM EDT Clinical Support [facility] Hematology/BMT and Cellular Therapy Program [address] [place] [address] 02/10/2025 9:00 AM EDT Office Visit [facility] Hematology/BMT and Cellular Therapy Program [address] [phone] Elaina Boss, ARAM 800 [facility] [address] [place] [phone] 02/10/2025 10:30 AM EDT Appointment [facility] Infusion Clinic 1 [address] [place] [phone] 02/11/2025 2:00 PM EDT Appointment [facility]fusion [facility] 1 [address] [place] [address] 02/12/2025 2:00 PM EDT Appointment [facility] Infusion [facility] 1 [address] [place] [address] 02/13/2025 2:00 PM EDT Appointment [facility] 1 [address] [place] [address] 02/14/2025 2:00 PM EDT Appointment [facility] Infusion [facility] 1 [address] [place] [address] 03/10/2025 8:30 AM EDT Clinical Support [facility] Hematology/BMT and Cellular Therapy Program [address] [address] 03/10/2025 9:00 AM EDT Office Visit [facility] Hematology/BMT and Cellular Therapy Program [address] [phone] Isaura Wynn, PROJECT SURVEYOR 800 [facility] [address] [place] [phone] 03/10/2025 11:20 AM EDT Office Visit Pav CC Head, Neck & Respiratory 800 [facility], [address]nd [place] [phone] Elsa Razo, PROJECT SURVEYOR [address] [place] [phone] documented as of this encounter Procedures Procedure Name Priority Date/Time Associated Diagnosis Comments CBC WITH AUTO DIFFERENTIAL Routine 01/14/2025 9:06 AM EDT Myelodysplasia (myelodysplastic syndrome) (CMS/HCC) URIC ACID, PLASMA Routine 01/14/2025 9:0 6 AM EDT Myelodysplasia (myelodysplastic syndrome) (CMS/HCC) PHOSPHORUS, PLASMA Routine 01/14/2025 9: 06 AM EDT Myelodysplasia (myelodysplastic syndrome) (CMS/HCC) MAGNESIUM, PLASMA Routine 01/14/2025 9:0 6 AM EDT Myelodysplasia (myelodysplastic syndrome) (CMS/HCC) LACTATE DEHYDROGENASE, PLASMA Routine 01/14/2025 9:06 AM EDT Myelodysplasia (myelodysplastic syndrome) (CMS/HCC) BASIC METABOLIC PANEL, PLASMA Routine 01/14/2025 9:06 AM EDT Myelodysplasia (myelodysplastic syndrome) (CMS/HCC) documented in this encounter Results * (ABNORMAL) CBC and Differential (01/14/2025 9:06 AM EDT) WBC Count 0.54(LL) 3.70 - 10.30 10*3/uL LAB HEMATOLOGY METHOD 01/14/2025 10:14 AM EDT [facility] RBC Count 2.75(L) 4.60 - 6.10 10*6/uL LAB HEMATOLOGY METHOD 01/14/2025 10:14 AM EDT [facility] HGB 8.2(L) 13.7 - 17.5 g/dL LAB HEMATOLOGY METHOD 01/14/2025 10:14 AM EDT [facility] HCT 23.2(L) 40.0 - 51.0 % LAB HEMATOLOGY METHOD 01/14/2025 10:14 AM EDT [facility] Platelet Count 21(L) 155 - 369 10*3/uL LAB HEMATOLOGY METHOD 01/14/2025 10:14 AM EDT [facility] MCV 84 79 - 98 fL LAB HEMATOLOGY METHOD 01/14/2025 10:14 AM EDT [facility] MCH 29.8 26.0 - 32.0 pg LAB HEMATOLOGY METHOD 01/14/2025 10:14 AM EDT [facility] MCHC 35.3 30.7 - 35.5 g/dL LAB HEMATOLOGY METHOD 01/14/2025 10:[facility] RDW 14.3 11.5 - 14.5 % LAB HEMATOLOGY METHOD 01/14/2025 10:14 AM EDT [facility] MPV 8.1(L) 8.8 - 12.5 fL LAB HEMATOLOGY METHOD 01/14/2025 10:14 AM EDT [facility] nRBC 0.0 <=0.0 per 100 WBCs LAB HEMATOLOGY METHOD 01/14/2025 10:14 AM EDT [facility] Differential Type Automated LAB HEMATOLOGY METHOD 01/14/2025 10:14 AM [facility] Neutrophils % 4 % LAB HEMATOLOGY METHOD 01/14/2025 10:14 AM EDT [facility] Lymphocytes % 92 % LAB HEMATOLOGY METHOD 01/14/2025 10:14 AM EDT [facility] Monocytes % 4 % LAB HEMATOLOGY METHOD 01/14/2025 10:14 AM [facility] Eosinophils % 0 % LAB HEMATOLOGY METHOD 01/14/2025 10:14 AM [facility] Basophils % 0 % LAB HEMATOLOGY METHOD 01/14/2025 10:14 AM [facility] Immature Granulocytes % 0 % LAB HEMATOLOGY METHOD 01/14/2025 10:14 AM [facility] Neutrophils Absolute 0.02(LL) 1.60 - 6.10 10*3/uL LAB HEMATOLOGY METHOD 01/14/2025 10:14 AM [facility] Lymphocytes Absolute 0.50(L) 1.20 - 3.90 10*3/uL LAB HEMATOLOGY METHOD 01/14/2025 10:14 AM [facility] Monocytes Absolute 0.02(L) 0.30 - 0.90 10*3/uL LAB HEMATOLOGY METHOD 01/14/2025 10:14 AM [facility] Eosinophils Absolute 0.00 0.00 - 0.50 10*3/uL LAB HEMATOLOGY METHOD 01/14/2025 10:14 AM EDT [facility] Basophils Absolute 0.00 0.00 - 0.10 10*3/uL LAB HEMATOLOGY METHOD 01/14/2025 10:14 AM [facility] Immature Granulocytes Absolute 0.00 0.00 - 0.06 10*3/uL LAB HEMATOLOGY METHOD 01/14/2025 10:14 AM [facility] Blood Blood sample taken from central line / Unknown (Port) Long-term Catheter / Unknown 01/14/2025 9:06 AM EDT 01/14/2025 9:14 AM EDT Narrative [facility]ALTH[facility]ARE LAB - 01/14/2025 10:14 AM EDT Therapeutic decision making should be based on absolute values, rather than percentages. us Virgen Vargas MD LAB BLOOD ORDERABLES Final Re sult [facility] [address] [place] [phone] * (ABNORMAL) BASIC METABOLIC PANEL (01/14/2025 9:06 AM EDT) Glucose, Plasma 101(H) 74 - 99 mg/dL 01/14/2025 9:58 AM EDT [facility] BUN, Plasma 9 8 - 23 mg/dL 01/14/2025 9:58 AM EDT [facility] Creatinine, Plasma 0.71 0.70 - 1.20 mg/dL 01/14/2025 9:58 AM EDT [facility] BUN/Creatinine Ratio 13 01/14/2025 9:58 AM EDT [facility] Sodium, Plasma 140 136 - 145 mmol/L 01/14/2025 9:58 AM EDT [facility] Potassium, Plasma 4.3 3.6 - 4.9 mmol/L 01/14/2025 9:58 AM EDT [facility] Chloride, Plasma 110(H) 97 - 107 mmol/L 01/14/2025 9:58 AM EDT [facility] CO2, Plasma 21(L) 22 - 29 mmol/L 01/14/2025 9:58 AM EDT [facility] Anion Gap 9 6 - 16 mmol/L 01/14/2025 9:58 AM EDT [facility] Total Calcium, Plasma 8.6(L) 8.9 - 10.2 mg/dL 01/14/2025 9:58 AM EDT [facility] eGFRcr 99.3 mL/min/1.7 3m*2 01/14/2025 9:58 AM EDT [facility] Comment:Reported eGFRcr in m L/min/1.73m2 is based the CKD-EPI 2020 equation that does not use a race coefficient. Blood Blood sample taken from central line / Unknown (Port) Long-term Catheter / Unknown 01/14/2025 9:06 AM EDT 01/14/2025 9:25 AM EDT Virgen Vargas MD LAB BLOOD ORDERABLES Final Re sult Performing Organization Address City/[facility]/ZIP Co de Phone Number [facility] [address] [place] [address] * (ABNORMAL) Uric acid (01/14/2025 9:06 AM EDT) Uric Acid, Plasma 3.0(L) 3.7 - 8.0 mg/dL 01/14/2025 9:58 AM EDT [facility] Blood Blood sample taken from central line / Unknown (Port) Long-term Catheter / Unknown 01/14/2025 9:06 AM EDT 01/14/2025 9:25 AM EDT Virgen Vargas MD LAB BLOOD ORDERABLES Final Re sult Performing Organization Address City/[facility]/[place] [address] * Phosphorus (01/14/2025 9:06 AM EDT) Phosphorus, Plasma 3.6 2.5 - 4.5 mg/dL 01/14/2025 9:58 AM EDT [facility] Blood Blood sample taken from central line / Unknown (Port) Long-term Catheter / Unknown 01/14/2025 9:06 AM EDT 01/14/2025 9:25 AM EDT Virgen Vargas MD LAB BLOOD ORDERABLES Final Re sult [facility] [address] [place] [address] * Magnesium (01/14/2025 9:06 AM EDT) Magnesium, Plasma 2.2 1.9 - 2.4 mg/dL 01/14/2025 9:58 AM EDT [facility] Blood Blood sample taken from central line / Unknown (Port) Long-term Catheter / Unknown 01/14/2025 9:06 AM EDT 01/14/2025 9:25 AM EDT Virgen Vargas MD LAB BLOOD ORDERABLES Final Re sult Performing Organization Address [facility]/ZIP Co de Phone Number [facility] [address] [place] [address] * LACTATE DEHYDROGENASE (01/14/2025 9:06 AM EDT) LDH, Plasma 195 116 - 250 U/L 01/14/2025 9:58 AM EDT [facility] Blood Blood sample taken from central line / Unknown (Port) Long-term Catheter / Unknown 01/14/2025 9:06 AM EDT 01/14/2025 9:25 AM EDT Virgen Vargas MD LAB BLOOD ORDERABLES Final Re sult Performing Organization Address [facility]/[place] [address] documented in this encounter Visit Diagnoses Diagnosis [...] Waste Container. Chemotherapy: refer to [id number]., On Sun01/14/25 at 0945, For 1 dose, NS 100 mLIndications:Myelodysplasia (myelodysplastic syndrome) (CMS/HCC) New Bag 01/14/2025 9:44 AM EDT 39 mg 137.8 mL/hr prochlorperazine (Compazine) tablet 10 mg 10 mg, Oral, Once, 1 dose, On Sun01/14/25 at 0915, RoutineIndications:Myelodyspla haim (myelodysplastic syndrome) (CMS/HCC) Given 01/14/2025 9:18 AM EDT 10 mg documented in this encounter Additional Health Concerns Assessment Noted Time PHQ-9 Depression Total Score: 0 09/11/19 9:15 AM EST A fall risk assessment has been complete d for the patient 01/14/2025 8:38 AM EDT A Body Mass Index follow-up plan has been documented for the patient 01/14/2025 10:46 AM EDT documented as of this encounter Care Teams Urologist Md Relationship Specialty Start Date End Date Zhao Harris MD [address] [place] [address] PCP - General 12/03/20 documented as of this encounter
--- OUTSIDE RECORDS SUMMARY | 2025-01-15 08:11 | XMS_ITS | Encounter Summary ---
Author Organization [facility] Address [address] [place] [place] [address] Care Team Providers Care Pharmacognosist Name Role Phone Zhao Harris MD Primary Care Provider + [phone] Reason for Visit * Episode Based Medications (Routine) - Authorized Specialty Diagnoses / Procedures Referred By Justice mcgee Referred To Contact Diagnoses Myelodysplasia (myelodysplastic syndrome) (CMS/HCC) Procedures Decitabine Daily x 5 / Venetoclax Every 28 Days Virgen Vargas MD 800 [facility] [address] [address] Phone: tel: fax: Virgen Vargas MD [address] [address] Phone: tel: fax: Referral ID Status Reason Start Date Expiration Date V isits Requested Visits Authorized [id number] Authorized 01/13/2025 07/15/2026 1 30 Encounter Details Date Type Department Care Team (Latest Contact Info) Description 01/15/2025 8:11 AM EDT - 01/15/2025 9:57 AM EDT Hospital Encounter [facility] H Infusion 800 [place] [phone] Myelodysplasia (myelodysplastic syndrome) (CMS/HCC) (Primary Dx); Thrombocytopenia [...] drink first t manav in the morning (EYE-COLLECTION TEAM LEAD) to steady your nerves or to get [...] 5 MG tabletIndications :Coronary artery disease involving nondalton heart with angina pectoris, unspecified vessel or lesion type (CMS/HCC),Hyperte nsion, unspecified type Take 1 tablet (5 mg) by mouth daily. 90 tablet 3 09/11/2024 HYDROcodone-aceta minophen ([place]) 5-325 MG tablet Take 1 tablet by [...] MG SL tabletIndications :Coronary artery disease involving nondalton heart with angina pectoris, unspecified vessel or [...] Appointment PAV A Interventional Radiology [address] [place] [address] 02/10/2025 8:30 AM EDT Clinical Support P[facility] CC Hematology/BMT and Cellular Therapy Program [address] [phone] 02/10/2025 9:00 AM EDT Office Visit PAV Hematology/BMT and Cellular Therapy Program [address] [phone] Elaina Boss, PA 800 [facility] [address] [place] [phone] 02/10/2025 10:30 AM EDT Appointment [facility] Infusion Clinic 1 [address] [place] [address] 02/11/2025 2:00 PM EDT Appointment [facility]fusion [facility] 1 [address] [place] [address] 02/12/2025 2:00 PM EDT Appointment [facility]fusion [facility] 1 [address] [place] [address] 02/13/2025 2:00 PM EDT Appointment [facility]fusion [facility] 1 [address] [place] [address] 02/14/2025 2:00 PM EDT Appointment [facility]fusion [facility] 1 [address] [place] [address] 03/10/2025 8:30 AM EDT Clinical Support P[facility] Hematology/BMT and Cellular Therapy Program [address] [address] 03/10/2025 9:00 AM EDT Office Visit PAV Hematology/BMT and Cellular Therapy Program [address] [phone] Isaura Wynn, CASING RUNNING MACHINE TENDER 800 [facility] [address] [phone] 03/10/2025 11:20 AM EDT Office Visit Pav Head[facility] Neck & Respiratory 800 [facility], 2nd [place] [address] Damari Razosey Marquis, CASING RUNNING MACHINE TENDER [address] [place] [address] documented as of this encounter Procedures Procedure [...] ORDERAB LES Final Result BLOOD BANK [address] [place] [address], * Prepare Leukocyte Reduced Platelets: 1 Units (01/15/2025 9:55 AM EDT) Product Code L3193P15 CH BLOO D BANK Dispense Status Transfused BLOOD BANK Blood Expiration Date [id number] BLOOD BANK Unit Number [id number] CH B LOOD BANK Product Blood Type 6200 BLOOD BANK Blood Type A+ BLOOD BANK Blood Venous blood specimen / Unknown us Kayli CHIU BLOOD BANK PRODUCT ORDER VIKAS Final Result BLOOD BANK [address] [place] [address], * (ABNORMAL) CBC and differential (01/15/2025 8:17 AM EDT) WBC Count 0.53(LL) 3.70 - 10.30 10*3/uL LAB HEMATOLOGY METHOD 01/15/2025 11:53 AM EDT [facility] RBC Count 2.82(L) 4.60 - 6.10 10*6/uL LAB HEMATOLOGY METHOD 01/15/2025 11:53 AM EDT [facility] HGB 8.2(L) 13.7 - 17.5 g/dL LAB HEMATOLOGY METHOD 01/15/2025 11:53 AM EDT [facility] HCT 24.0(L) 40.0 - 51.0 % LAB HEMATOLOGY METHOD 01/15/2025 11:53 AM EDT [facility] Platelet Count 18(LL) 155 - 369 10*3/uL LAB HEMATOLOGY METHOD 01/15/2025 11:53 AM EDT [facility] MCV 85 79 - 98 fL LAB HEMATOLOGY METHOD 01/15/2025 11:53 AM EDT [facility] MCH 29.1 26.0 - 32.0 pg LAB HEMATOLOGY METHOD 01/15/2025 11:53 AM EDT [facility] MCHC 34.2 30.7 - 35.5 g/dL LAB HEMATOLOGY METHOD 01/15/2025 11:53 AM EDT [facility] RDW 14.2 11.5 - 14.5 % LAB HEMATOLOGY METHOD 01/15/2025 11:53 AM EDT [facility] MPV 9.3 8.8 - 12.5 fL LAB HEMATOLOGY METHOD 01/15/2025 11:53 AM EDT [facility] nRBC 0.0 <=0.0 per 100 WBCs LAB HEMATOLOGY METHOD 01/15/2025 11:53 AM EDT [facility] Differential Type Automated LAB HEMATOLOGY METHOD 01/15/2025 11:53 AM EDT [facility] Neutrophils % 8 % LAB HEMATOLOGY METHOD 01/15/2025 11:53 AM EDT [facility] Lymphocytes % 88 % LAB HEMATOLOGY METHOD 01/15/2025 11:53 AM EDT [facility] Monocytes % 4 % LAB HEMATOLOGY METHOD 01/15/2025 11:53 AM EDT [facility] Eosinophils % 0 % LAB HEMATOLOGY METHOD 01/15/2025 11:53 AM EDT [facility] Basophils % 0 % LAB HEMATOLOGY METHOD 01/15/2025 11:53 AM EDT [facility] Immature Granulocytes % 0 % LAB HEMATOLOGY METHOD 01/15/2025 11:53 AM EDT [facility] Neutrophils Absolute 0.04(LL) 1.60 - 6.10 10*3/uL LAB HEMATOLOGY METHOD 01/15/2025 11:53 AM EDT [facility] Lymphocytes Absolute 0.47(L) 1.20 - 3.90 10*3/uL LAB HEMATOLOGY METHOD 01/15/2025 11:53 AM EDT [facility] Monocytes Absolute 0.02(L) 0.30 - 0.90 10*3/uL LAB HEMATOLOGY METHOD 01/15/2025 11:53 AM EDT [facility] Eosinophils Absolute 0.00 0.00 - 0.50 10*3/uL LAB HEMATOLOGY METHOD 01/15/2025 11:53 AM EDT [facility] Basophils Absolute 0.00 0.00 - 0.10 10*3/uL LAB HEMATOLOGY METHOD 01/15/2025 11:53 AM EDT [facility] Immature Granulocytes Absolute 0.00 0.00 - 0.06 10*3/uL LAB HEMATOLOGY METHOD 01/15/2025 11:53 AM EDT [facility] Blood Blood sample taken from central line / Unknown (Port) Long-term Catheter / Unknown 01/15/2025 8:17 AM EDT 01/15/2025 8:59 AM EDT [facility] - 01/15/2025 11:53 AM EDT Therapeutic decision making should be based on absolute values, rather than percentages. us Virgen Vargas MD LAB BLOOD ORDERABLES Final Re sult [facility] [address] [place] [address] * (ABNORMAL) BASIC METABOLIC PANEL (01/15/2025 8:17 AM EDT) Glucose, Plasma 96 74 - 99 mg/dL 01/15/2025 9:19 AM EDT [facility] BUN, Plasma 12 8 - 23 mg/dL 01/15/2025 9:19 AM EDT [facility] Creatinine, Plasma 0.71 0.70 - 1.20 mg/dL 01/15/2025 9:19 AM EDT [facility] BUN/Creatinine Ratio 17 01/15/2025 9:19 AM EDT [facility] Sodium, Plasma 139 136 - 145 mmol/L 01/15/2025 9:19 AM EDT [facility] Potassium, Plasma 4.1 3.6 - 4.9 mmol/L 01/15/2025 9:19 AM EDT [facility] Chloride, Plasma 108(H) 97 - 107 mmol/L 01/15/2025 9:19 AM EDT [facility] CO2, Plasma 21(L) 22 - 29 mmol/L 01/15/2025 9:19 AM EDT [facility] Anion Gap 10 6 - 16 mmol/L 01/15/2025 9:19 AM EDT [facility] Total Calcium, Plasma 8.9 8.9 - 10.2 mg/dL 01/15/2025 9:19 AM EDT [facility] eGFRcr 99.3 mL/min/1.7 3m*2 01/15/2025 9:19 AM EDT [facility] Comment:Reported eGFRcr in m L/min/1.73m2 is based the CKD-EPI 2020 equation that does not use a race coefficient. Blood Blood sample taken from central line / Unknown (Port) Long-term Catheter / Unknown 01/15/2025 8:17 AM EDT 01/15/2025 8:47 AM EDT us Virgen Vargas MD LAB BLOOD ORDERABLES Final Re sult [facility] [address] [place] [address] * (ABNORMAL) Uric acid (01/15/2025 8:17 AM EDT) Uric Acid, Plasma 3.0(L) 3.7 - 8.0 mg/dL 01/15/2025 9:19 AM EDT [facility] Blood Blood sample taken from central line / Unknown (Port) Long-term Catheter / Unknown 01/15/2025 8:17 AM EDT 01/15/2025 8:47 AM EDT Virgen Vargas MD LAB BLOOD ORDERAB[place] [address] * Phosphorus (01/15/2025 8:17 AM EDT) Phosphorus, Plasma 3.1 2.5 - 4.5 mg/dL 01/15/2025 9:19 AM EDT [facility] Blood Blood sample taken from central line / Unknown (Port) Long-term Catheter / Unknown 01/15/2025 8:17 AM EDT 01/15/2025 8:47 AM EDT Virgen Vargas MD LAB BLOOD ORDERAB[place] [address] * Magnesium (01/15/2025 8:17 AM EDT) Magnesium, Plasma 2.2 1.9 - 2.4 mg/dL 01/15/2025 9:19 AM EDT [facility] Blood Blood sample taken from central line / Unknown (Port) Long-term Catheter / Unknown 01/15/2025 8:17 AM EDT 01/15/2025 8:47 AM EDT Virgen Vargas MD LAB BLOOD ORDERABLES Final Re sult [facility] [address] [place] [address] * LACTATE DEHYDROGENASE (01/15/2025 8:17 AM EDT) LDH, Plasma 192 116 - 250 U/L 01/15/2025 9:19 AM EDT [facility] Blood Blood sample taken from central line / Unknown (Port) Long-term Catheter / Unknown 01/15/2025 8:17 AM EDT 01/15/2025 8:47 AM EDT us Virgen Vargas MD LAB BLOOD ORDERABLES Final [facility] Performing Organization Address [facility]/ZIP Co de Phone Number [facility] [address] [place] [address] documented in this encounter Visit Diagnoses Diagnosis [...] documented as of this encounter Care Teams Pharmacognosist Relationship Specialty Start Date End Date Zhao Harris MD [address] [place] [address] PCP - General 12/03/20 documented as of this encounter
--- OUTSIDE RECORDS SUMMARY | 2025-01-15 09:58 | XMS_ITS | Encounter Summary ---
Author Organization Healthcare Address [address] [place] [address] Care Team Providers Care Mini Shifter Name Role Phone Zhao Harris MD Primary Care Provider [phone] Encounter Details Date Type Department Care Team (Latest Contact Info) Description 01/15/2025 9:58 AM EDT - 01/15/2025 11:59 PM EDT Hospital Encounter [facility]fusion [address] [place] [address] Discharge Disposition: Home or Self Care Social [...] drink first t manav in the morning (EYE-RETAIL PHARMACY MERCHANDISER) to steady your nerves or to get [...] daily. 90 tablet 3 09/11/2024 HYDROcodone-aceta minophen ([place]) 5-325 MG tablet Take 1 tablet by [...] Appointment [facility] [address] [place] [address] 02/10/2025 8:30 AM EDT Clinical Support [facility] CC Hematology/BMT and Cellular Therapy Program [address] [address] 02/10/2025 9:00 AM EDT Office Visit [facility] Hematology/BMT and Cellular Therapy Program [address] [address] Elaina Boss, PA 800 [facility] [address] [place] [phone] 02/10/2025 10:30 AM EDT Appointment [facility] 1 744 [place] [address] 02/11/2025 2:00 PM EDT Appointment [facility] 1 744 [place] [address] 02/12/2025 2:00 PM EDT Appointment [facility] 1 [address] [place] [address] 02/13/2025 2:00 PM EDT Appointment [facility] 1 [address] [place] [address] 02/14/2025 2:00 PM EDT Appointment [facility] 1 [address] [place] [address] 03/10/2025 8:30 AM EDT Clinical Support [facility] Hematology/BMT and Cellular Therapy Program [address] [address] 03/10/2025 9:00 AM EDT Office Visit [facility] Hematology/BMT and Cellular Therapy Program [address] [address] Isaura Wynn, ESTRELLA 800 [facility] [address] [phone] 03/10/2025 11:20 AM EDT Office Visit [facility] Head[facility] Neck [facility] Respiratory 800 [facility], 2nd [place] [phone] Elsa Razo, QUANTITATIVE ANALYST MARKETING [address] [place] [phone] documented as of this encounter Visit Diagnoses [...] documented as of this encounter Care Teams Mini Shifter Relationship Specialty Start Date End Date Zhao Harris MD [address] [place], [place] [id number] PCP - General 12/03/20 documented as of this encounter
--- OUTSIDE RECORDS SUMMARY | 2025-01-16 07:55 | XMS_ITS | Encounter Summary ---
Author Organization [facility] Address [address] [place] [address] Care Team Providers Care City Superintendent Of [employer] Name Role Phone Zhao Harris MD Primary Care Provider + [phone] Reason for Visit * Episode Based Medications (Routine) - Authorized Specialty Diagnoses / Procedures Referred By Justice mcgee Referred To Contact Diagnoses Myelodysplasia (myelodysplastic syndrome) (CMS/HCC) Procedures Decitabine Daily x 5 / Venetoclax Every 28 Days Virgen Vargas MD 800 [facility] Cancer [address] [address] Phone: tel: fax: Virgen Vargas MD [address] [address] Phone: tel: fax: Referral ID Status Reason Start Date Expiration Date V isits Requested Visits Authorized [id number] Authorized 01/13/2025 07/15/2026 1 30 Encounter Details Date Type Department Care Team (Latest Contact Info) Description 01/16/2025 7:55 AM EDT - 01/16/2025 11:59 PM EDT Hospital Encounter PAV H Infusion 800 [place] [phone] Myelodysplasia (myelodysplastic syndrome) (CMS/HCC) (Primary Dx) Discharge [...] drink first t manav in the morning (EYE-ROUGH PLANER TENDER) to steady your nerves or to [...] 5 MG tabletIndications :Coronary artery disease involving [place] heart with angina pectoris, unspecified vessel or lesion type (CMS/HCC),Hyperte nsion, unspecified type Take 1 tablet (5 mg) by mouth daily. 90 tablet 3 09/11/2024 HYDROcodone-aceta minophen ([place]) 5-325 MG tablet Take 1 tablet by [...] MG SL tabletIndications :Coronary artery disease involving [place] heart with angina pectoris, unspecified vessel or [...] Appointment PAV A Interventional Radiology [address] [place] [address] 02/10/2025 8:30 AM EDT Clinical Support PAV CC Hematology/BMT and Cellular Therapy Program [address] [place] [address] 02/10/2025 9:00 AM EDT Office Visit PAV Hematology/BMT and Cellular Therapy Program [address] [phone] Elaina Boss, PA 800 [facility] [address] [place] [phone] 02/10/2025 10:30 AM EDT Appointment [facility] Infusion Clinic 1 744 [place] [address] 02/11/2025 2:00 PM EDT Appointment [facility] Infusion [facility] 1 [address]44 [place] [phone] 02/12/2025 2:00 PM EDT Appointment [facility]fusion [facility] 1 [address] [place] [phone] 02/13/2025 2:00 PM EDT Appointment [facility] Infusion [facility] 1 7[address] [place] [address] 02/14/2025 2:00 PM EDT Appointment [facility] Infusion Clinic 1 [address] [place] [address] 03/10/2025 8:30 AM EDT Clinical Support PAV Hematology/BMT and Cellular Therapy Program [address] [address] 03/10/2025 9:00 AM EDT Office Visit PAV Hematology/BMT and Cellular Therapy Program [address] [address] Isaura Wynn, DIRECTOR NURSING SERVICE 800 [facility] [address] [place] [phone] 03/10/2025 11:20 AM EDT Office Visit Pav Head, Neck & Respiratory 800 [facility], 2nd [place] [phone] Elsa Razo, DIRECTOR NURSING SERVICE 800 [place] [phone] documented as of this encounter Procedures Procedure Name Priority Date/Time Associated Diagnosis Comments TYPE AND SCREEN Routine 01/16/2025 9:54 AM EDT PLATELET COUNT, BLOOD STAT 01/16/2025 8:12 AM EDT CBC W/O DIFFERENTIAL STAT Add-on 01/16/2025 8:12 AM EDT documented in this encounter Results * Type and Screen (01/16/2025 9:54 AM EDT) Pathologist [facility] ABO/Rh O Negative 01/16/2025 9:51 AM EDT BLOOD BANK Antibody Screen Negative 01/16/2025 9:51 AM EDT BLOOD BANK Specimen Expiration 01/19/2025 23:59 01/16/2025 9:51 AM EDT BLOOD BANK Blood Venous blood specimen / Unknown Venipuncture / Unknown 01/16/2025 9:54 AM EDT 01/16/2025 10:02 AM EDT us Virgen Vargas MD LAB BLOOD BANK TEST ORDERABLE S Final Result BLOOD BANK 800 [place] [address], * (ABNORMAL) CBC W/O Differential (01/16/2025 8:12 AM EDT) WBC Count 0.49(LL) 3.70 - 10.30 10*3/uL LAB HEMATOLOGY METHOD 01/16/2025 11:30 AM EDT [facility] RBC Count 2.65(L) 4.60 - 6.10 10*6/uL LAB HEMATOLOGY METHOD 01/16/2025 11:30 AM EDT [facility] HGB 8.0(L) 13.7 - 17.5 g/dL LAB HEMATOLOGY METHOD 01/16/2025 11:30 AM EDT [facility] HCT 23.0(L) 40.0 - 51.0 % LAB HEMATOLOGY METHOD 01/16/2025 11:30 AM EDT [facility] Platelet Count 39(L) 155 - 369 10*3/uL LAB HEMATOLOGY METHOD 01/16/2025 11:30 AM EDT [facility] MCV 87 79 - 98 fL LAB HEMATOLOGY METHOD 01/16/2025 11:30 AM EDT [facility] MCH 30.2 26.0 - 32.0 pg LAB HEMATOLOGY METHOD 01/16/2025 11:30 AM EDT [facility] MCHC 34.8 30.7 - 35.5 g/dL LAB HEMATOLOGY METHOD 01/16/2025 11:30 AM EDT [facility] RDW 14.5 11.5 - 14.5 % LAB HEMATOLOGY METHOD 01/16/2025 11:30 AM EDT [facility] MPV 10.2 8.8 - 12.5 fL LAB HEMATOLOGY METHOD 01/16/2025 11:30 AM EDT [facility] nRBC 0.0 <=0.0 per 100 WBCs LAB HEMATOLOGY METHOD 01/16/2025 11:30 AM EDT [facility] Blood Blood sample taken from central line / Unknown Venipuncture / Unknown 01/16/2025 8:12 AM EDT 01/16/2025 8:27 AM EDT Virgen Vargas MD LAB BLOOD ORDERABLES Final Re sult [facility] 800 [place] [address] * (ABNORMAL) Platelet count (01/16/2025 8:12 AM EDT) Platelet Count 39(L) 155 - 369 10*3/uL LAB HEMATOLOGY METHOD 01/16/2025 8:38 AM EDT [facility] Blood Blood sample taken from central line / Unknown Venipuncture / Unknown 01/16/2025 8:12 AM EDT 01/16/2025 8:27 AM EDT Virgen Vargas MD LAB BLOOD ORDERABLES Final Re sult [facility] 800 [place] [address] documented in this encounter Visit Diagnoses Diagnosis [...] documented as of this encounter Care Teams City Superintendent Of Schools Relationship Specialty Start Date End Date Zhao Harris MD [address] [place] [address] [facility] [address] [place] [id number] PCP - General 12/03/20 documented as of this encounter
--- OUTSIDE RECORDS SUMMARY | 2025-01-17 07:45 | XMS_ITS | Encounter Summary ---
Author Organization [facility] Address [address] [place] [place] [address] Care Team Providers Care Nurse Receptionist Name Role Phone Zhao Harris MD Primary Care Provider + [phone] Reason for Visit * Episode Based Medications (Routine) - Authorized Specialty Diagnoses / Procedures Referred By Justice mcgee Referred To Contact Diagnoses Myelodysplasia (myelodysplastic syndrome) (CMS/HCC) Procedures Decitabine Daily x 5 / Venetoclax Every 28 Days Virgen Vargas MD [address] [facility] [address] [address] Phone: tel: fax: Virgen Vargas MD [address] [address] Phone: tel: fax: Referral ID Status Reason Start Date Expiration Date V isits Requested Visits Authorized [id number] Authorized 01/13/2025 07/15/2026 1 30 Encounter Details Date Type Department Care Team (Latest Contact Info) Description 01/17/2025 7:45 AM EDT - 01/17/2025 11:59 PM EDT Hospital Encounter PAV H Infusion 800 [place] [phone] Myelodysplasia (myelodysplastic syndrome) (CMS/HCC) (Primary Dx); Thrombocytopenia [...] drink first t manav in the morning (EYE-WINDING MACHINE OPERATOR) to steady your nerves or [...] Sign Reading Time Taken Comments Blood Pressure 141/83 01/17/2025 11:30 AM EDT Pulse 56 01/17/2025 11:30 AM EDT Temperature 36.7 C (98.1 F) 01/17/2025 11:30 AM EDT Respiratory Rate 18 01/17/2025 11:30 AM EDT Oxygen Saturation 96% 01/17/2025 7:47 AM EDT Inhaled Oxygen Concentration - - Weight 82.6 kg (182 lb 1.6 oz) 01/17/2025 7:47 A M EDT Height 170.2 cm (5' 7 ) 01/17/2025 7:47 AM EDT Body Mass Index 28.52 01/17/2025 7:47 AM EDT documented in this encounter Medications [...] 5 MG tabletIndications :Coronary artery disease involving [place] heart with angina pectoris, unspecified vessel or lesion type (CMS/HCC),Hyperte nsion, unspecified type Take 1 tablet (5 mg) by mouth daily. 90 tablet 3 09/11/2024 HYDROcodone-aceta minophen ([place]) 5-325 MG tablet Take 1 tablet by [...] MG SL tabletIndications :Coronary artery disease involving [place] heart with angina pectoris, unspecified vessel or [...] Appointment PAV A Interventional Radiology [address] [place] [address] 02/10/2025 8:30 AM EDT Clinical Support PAV Hematology/BMT and Cellular Therapy Program [address] [place] [address] 02/10/2025 9:00 AM EDT Office Visit PAV Hematology/BMT and Cellular Therapy Program [address] [phone] Elaina Boss PA [address] [facility] [address] [place] [phone] 02/10/2025 10:30 AM EDT Appointment PAV Infusion Clinic 1 [address] [place] [address] 02/11/2025 2:00 PM EDT Appointment PAV Infusion Clinic 1 [address] [place] [address] 02/12/2025 2:00 PM EDT Appointment PAV Infusion Clinic 1 [address] [place] [address] 02/13/2025 2:00 PM EDT Appointment PAV Infusion Clinic 1 [address] [place] [address] 02/14/2025 2:00 PM EDT Appointment PAV Infusion Clinic 1 [address] [place] [address] 03/10/2025 8:30 AM EDT Clinical Support PAV Hematology/BMT and Cellular Therapy Program [address] [address] 03/10/2025 9:00 AM EDT Office Visit PAV Hematology/BMT and Cellular Therapy Program [address] [phone] Isaura Wynn, CAPACITY ANALYST 800 [facility] [address] [place] [phone] 03/10/2025 11:20 AM EDT Office Visit Pav CC Head, Neck & Respiratory 800 [facility], 2nd [place] [address] Elsa Razo, CAPACITY ANALYST 800 [place] [phone] documented as of this encounter Procedures Procedure Name Priority Date/Time Associated Diagnosis Comments TRANSFUSE RED BLOOD CELLS Routine 01/17/2025 9:30 AM EDT Myelodysplasia (myelodysplastic syndrome) (CMS/HCC) Thrombocytopenia (CMS/HCC) PREPARE RBC Routine 01/17/2025 8:56 AM EDT Myelodysplasia (myelodysplastic syndrome) (CMS/HCC) Thrombocytopenia (CMS/HCC) CBC WITH AUTO DIFFERENTIAL Routine 01/17/2025 8:03 AM EDT Myelodysplasia (myelodysplastic syndrome) (CMS/HCC) documented in this encounter Results * Transfuse RBC, Irradiated (01/17/2025 11:42 AM EDT) Kayli CHIU BLOOD TRANSFUSION ORDERA BLES Final Result * Transfuse RBC: 1 Units, Irradiated (01/17/2025 11:42 AM EDT) Kayli CHIU BLOOD TRANSFUSION ORDERA BLES Final Result * Prepare Leukocyte Reduced RBC: 1 Units, Irradiated (01/17/2025 8:56 AM EDT) Pathologist [facility] Product Code [id number] BLOO D BANK Dispense Status Transfused BLOOD BANK Blood Expiration Date [id number] BLOOD BANK Unit Number [id number] B LOOD BANK Product Blood Type 9500 BLOOD BANK Blood Type O- BLOOD BANK Crossmatch Compatible BLOOD BANK Other Kayli CHIU BLOOD BANK PRODUCT ORDER VIKAS Final Result Performing Organization Address City/State/[facility] Co de Phone Number BLOOD BANK 800 [place] [address], * (ABNORMAL) CBC and differential (01/17/2025 8:03 AM EDT) WBC Count 0.54(LL) 3.70 - 10.30 10*3/uL LAB HEMATOLOGY METHOD 01/17/2025 9:41 AM EDT [facility] RBC Count 2.55(L) 4.60 - 6.10 10*6/uL LAB HEMATOLOGY METHOD 01/17/2025 9:41 AM EDT [facility] HGB 7.6(L) 13.7 - 17.5 g/dL LAB HEMATOLOGY METHOD 01/17/2025 9:41 AM EDT [facility] HCT 21.6(L) 40.0 - 51.0 % LAB HEMATOLOGY METHOD 01/17/2025 9:41 AM EDT [facility] Platelet Count 23(L) 155 - 369 10*3/uL LAB HEMATOLOGY METHOD 01/17/2025 9:41 AM EDT [facility] MCV 85 79 - 98 fL LAB HEMATOLOGY METHOD 01/17/2025 9:41 AM EDT [facility] MCH 29.8 26.0 - 32.0 pg LAB HEMATOLOGY METHOD 01/17/2025 9:41 AM EDT [facility] MCHC 35.2 30.7 - 35.5 g/dL LAB HEMATOLOGY METHOD 01/17/2025 9:41 AM EDT [facility] RDW 14.2 11.5 - 14.5 % LAB HEMATOLOGY METHOD 01/17/2025 9:41 AM EDT [facility] MPV 9.0 8.8 - 12.5 fL LAB HEMATOLOGY METHOD 01/17/2025 9:41 AM EDT [facility] nRBC 0.0 <=0.0 per 100 WBCs LAB HEMATOLOGY METHOD 01/17/2025 9:41 AM EDT [facility] Differential Type Automated LAB HEMATOLOGY METHOD 01/17/2025 9:41 AM EDT [facility] Neutrophils % 7 % LAB HEMATOLOGY METHOD 01/17/2025 9:41 AM EDT [facility] Lymphocytes % 91 % LAB HEMATOLOGY METHOD 01/17/2025 9:41 AM EDT [facility] Monocytes % 2 % LAB HEMATOLOGY METHOD 01/17/2025 9:41 AM EDT [facility] Eosinophils % 0 % LAB HEMATOLOGY METHOD 01/17/2025 9:41 AM EDT [facility] Basophils % 0 % LAB HEMATOLOGY METHOD 01/17/2025 9:41 AM EDT [facility] Immature Granulocytes % 0 % LAB HEMATOLOGY METHOD 01/17/2025 9:41 AM EDT [facility] Neutrophils Absolute 0.04(LL) 1.60 - 6.10 10*3/uL LAB HEMATOLOGY METHOD 01/17/2025 9:41 AM EDT [facility] Lymphocytes Absolute 0.49(L) 1.20 - 3.90 10*3/uL LAB HEMATOLOGY METHOD 01/17/2025 9:41 AM EDT [facility] Monocytes Absolute 0.01(L) 0.30 - 0.90 10*3/uL LAB HEMATOLOGY METHOD 01/17/2025 9:41 AM EDT [facility] Eosinophils Absolute 0.00 0.00 - 0.50 10*3/uL LAB HEMATOLOGY METHOD 01/17/2025 9:41 AM EDT [facility] Basophils Absolute 0.00 0.00 - 0.10 10*3/uL LAB HEMATOLOGY METHOD 01/17/2025 9:41 AM EDT [facility] Immature Granulocytes Absolute 0.00 0.00 - 0.06 10*3/uL LAB HEMATOLOGY METHOD 01/17/2025 9:41 AM EDT [facility] Blood Blood sample taken from central line / Unknown (Port) Long-term Catheter / Unknown 01/17/2025 8:03 AM EDT 01/17/2025 8:07 AM EDT Narrative [facility] - 01/17/2025 9:41 AM EDT Therapeutic decision making should be based on absolute values, rather than percentages. us Virgen Vargas MD LAB BLOOD ORDERABLES Final Re sult [facility] [address] [place] [address] documented in this encounter Visit Diagnoses Diagnosis [...] Waste Container. Chemotherapy: refer to [id number]., On 01/17/25 at 0845, For 1 dose, NS 100 mLIndications:Myelodysplasia (myelodysplastic syndrome) (CMS/HCC) New Bag 01/17/2025 8:26 AM EDT 39 mg 137.8 mL/hr prochlorperazine (Compazine) tablet 10 mg 10 mg, Oral, Once, 1 dose, On 01/17/25 at 0815, RoutineIndications:Myelodyspla haim (myelodysplastic syndrome) (CMS/HCC) Given 01/17/2025 7:54 AM EDT 10 mg documented in this encounter Additional Health Concerns Assessment Noted Time PHQ-9 Depression Total Score: 0 09/11/19 9:15 AM EST A fall risk assessment has been complete d for the patient 01/17/2025 7:46 AM EDT A Body Mass Index follow-up plan has been documented for the patient 01/14/2025 10:46 AM EDT documented as of this encounter Care Teams Nurse Receptionist Relationship Specialty Start Date End Date Zhao Harris MD [address] [place] [address] PCP - General 12/03/20 documented as of this encounter
[2025-01-30] VITALS (7 sets, daily range): BP systolic 98–123; BP diastolic 66–74; PULSE 67–72; RESP 17–18; TEMP 36.6–36.7; O2SAT 98–100
--- OUTSIDE RECORDS SUMMARY | 2025-01-30 13:16 | XMS_ITS | Encounter Summary ---
Author Organization [facility] Address [address] [place] [address] Care Team Providers Care Mh Teacher Name Role Phone Zhao Harris MD Primary Care Provider [phone] Encounter Details Date Type Department Care Team [...] drink first t manav in the morning (EYE-EXTRUSION PRESS ADJUSTER) to steady your nerves or to [...] Appointment PAV A Interventional Radiology [address] [place] [address] 02/10/2025 8:30 AM EDT Clinical Support PAV Hematology/BMT and Cellular Therapy Program [address] [address] 02/10/2025 9:00 AM EDT Office Visit PAV Hematology/BMT and Cellular Therapy Program [address] [phone] Elaina Boss PA 800 [facility] [address] [place] [address] 02/10/2025 10:30 AM EDT Appointment [facility] Infusion [facility] 1 744 [place] [address] 02/11/2025 2:00 PM EDT Appointment [facility] 1 744 [place] [address] 02/12/2025 2:00 PM EDT Appointment [facility] 1 7[address] [place] [address] 02/13/2025 2:00 PM EDT Appointment [facility] 1 744 [place] [address] 02/14/2025 2:00 PM EDT Appointment [facility] 1 744 [place] [address] 03/10/2025 8:30 AM EDT Clinical Support PAV CC Hematology/BMT and Cellular Therapy Program [address] [place] [address] 03/10/2025 9:00 AM EDT Office Visit PAV Hematology/BMT and Cellular Therapy Program [address] [address] Isaura Wynn, CASH PERSON 800 [facility] [address] [place] [phone] 03/10/2025 11:20 AM EDT Office Visit Pav CC Head, Neck & Respiratory 800 [facility], 2nd [place] [phone] Elsa Razo, CASH PERSON 800 [place] [phone] documented as of this encounter Visit Diagnoses [...] documented as of this encounter Care Teams Mh Teacher Relationship Specialty Start Date End Date Zhao Harris MD 1210 [facility] [address] [address] PCP - General 12/03/20 documented as of this encounter
--- OUTSIDE RECORDS SUMMARY | 2025-01-30 13:16 | XMS_ITS | Encounter Summary ---
Author Organization [facility] Address [address] [place] [address] Care Team Providers Care Guide Escort Name Role Phone Zhao Harris MD Primary Care Provider [phone] Reason for Visit * Reason Comments Med Refill Encounter Details Date Type Department Care Team ([facility] st Contact Info) Description 01/01/2025 Refill [facility] [place] 800 [facility]. [address] [place] [address] Ra Best MD [address] [place] [address] Social History Tobacco Use Types Packs/Day Years [...] first t manav in the morning (EYE-SUPERVISOR WOUND) to steady your nerves or to get [...] Appointment PAV A Interventional Radiology [address] [place] [address] 02/10/2025 8:30 AM EDT Clinical Support PAV Hematology/BMT and Cellular Therapy Program [address] [place] [address] 02/10/2025 9:00 AM EDT Office Visit PAV Hematology/BMT and Cellular Therapy Program [address] [address] Elaina Boss, ARAM 800 [facility] [address] [place] [address] 02/10/2025 10:30 AM EDT Appointment [facility] Infusion [facility] 1 744 [place] [address] 02/11/2025 2:00 PM EDT Appointment [facility] 1 744 [place] [address] 02/12/2025 2:00 PM EDT Appointment [facility] 1 7[address] [place] [address] 02/13/2025 2:00 PM EDT Appointment [facility] 1 [address] [place] [address] 02/14/2025 2:00 PM EDT Appointment [facility] 1 7[address] [place] [address] 03/10/2025 8:30 AM EDT Clinical Support PAV CC Hematology/BMT and Cellular Therapy Program [address] [address] 03/10/2025 9:00 AM EDT Office Visit PAV CC Hematology/BMT and Cellular Therapy Program 750 [facility] [place] [phone] Isaura Wynn, SENIOR WEALTH ADVISOR 800 [facility] [address]st [place] [phone] 03/10/2025 11:20 AM EDT Office Visit Pav CC Head, Neck & Respiratory 800 [facility], 2nd [place] [address] Elsa Razo, SENIOR WEALTH ADVISOR 800 [place] [phone] documented as of this encounter Visit Diagnoses [...] as of this encounter Care Teams Guide Escort Relationship Specialty Start Date End Date Zhao Harris MD 1210 [facility] [address] [place] [address] PCP - General 12/03/20 documented as of this encounter
--- OUTSIDE RECORDS SUMMARY | 2025-01-30 13:16 | XMS_ITS | Encounter Summary ---
Author Organization [facility] Address [address] [place] [address] Care Team Providers Care Core Worker Name Role Phone Zhao Harris MD Primary Care Provider [phone] Encounter Details Date Type Department Care Team [...] drink first t manav in the morning (EYE-SPEECH LANGUAGE PATHOLOGIST) to steady your nerves or to get [...] ([facility] Contact Info) Description 02/02/2025 9:30 AM EDT Appointment PAV A Interventional Radiology [address] [place] [address] 02/10/2025 8:30 AM EDT Clinical Support PAV CC Hematology/BMT and Cellular Therapy Program [address] [place] [address] [place] [address] 02/10/2025 9:00 AM EDT Office Visit PAV CC Hematology/BMT and Cellular Therapy Program [address] [place] [phone] Elaina Boss, PA 800 [facility] [address] [place] [address] 02/10/2025 10:30 AM EDT Appointment [facility]fusion [facility] 1 744 [place] [address] 02/11/2025 2:00 PM EDT Appointment [facility]fusion [facility] 1 744 [place] [address] 02/12/2025 2:00 PM EDT Appointment [facility]fusion [facility] 1 744 [place] [address] 02/13/2025 2:00 PM EDT Appointment [facility]fusion [facility] 1 744 [place] [address] 02/14/2025 2:00 PM EDT Appointment [facility] Infusion [facility] 1 4 [place] [address] 03/10/2025 8:30 AM EDT Clinical Support PAV CC Hematology/BMT and Cellular Therapy Program [address] [place] [address] [place] [address] 03/10/2025 9:00 AM EDT Office Visit PAV CC Hematology/BMT and Cellular Therapy Program [address] [place] [address] [place] [phone] Isaura Wynn, RESEARCH AND DEVELOPMENT CHEMIST 800 [facility] [address] [place] [address] 03/10/2025 11:20 AM EDT Office Visit Pav CC Head, Neck & Respiratory 800 [facility], 2nd [place] [address] Elsa Razo, RESEARCH AND DEVELOPMENT CHEMIST 800 [place] [phone] documented as of this encounter Visit Diagnoses [...] documented as of this encounter Care Teams Core Worker Relationship Specialty Start Date End Date Zhao Harris MD 1210 [facility] [address] [place] [phone] PCP - General 12/03/20 documented as of this encounter
--- OUTSIDE RECORDS SUMMARY | 2025-01-30 13:16 | XMS_ITS | Encounter Summary ---
Author Organization [facility] Address [address] [place] [address] Care Team Providers Care Commodities Broker Name Role Phone Zhao Harris MD Primary Care Provider [phone] Encounter Details Date Type Department Care Team [...] drink first t manav in the morning (EYE-CYBER LEGAL ADVISOR) to steady your nerves or to [...] [facility] Contact [facility]) Description 02/02/2025 9:30 AM EDT Appointment PAV A Interventional Radiology [address] [place] [address] 02/10/2025 8:30 AM EDT Clinical Support PAV CC Hematology/BMT and Cellular Therapy Program [address] [place] [address] [place] [address] 02/10/2025 9:00 AM EDT Office Visit PAV CC Hematology/BMT and Cellular Therapy Program [address] [place] [phone] Elaina Boss, PA 800 [facility] [address] [place] [address] 02/10/2025 10:30 AM EDT Appointment [facility]fusion [facility] 1 744 [place] [address] 02/11/2025 2:00 PM EDT Appointment [facility] Infusion [facility] 1 744 [place] [address] 02/12/2025 2:00 PM EDT Appointment [facility] Infusion [facility] 1 744 [place] [address] 02/13/2025 2:00 PM EDT Appointment [facility] Infusion [facility] 1 744 [place] [address] 02/14/2025 2:00 PM EDT Appointment [facility] Infusion [facility] 1 4 [place] [address] 03/10/2025 8:30 AM EDT Clinical Support PAV CC Hematology/BMT and Cellular Therapy Program [address] [place] [address] [place] [address] 03/10/2025 9:00 AM EDT Office Visit PAV CC Hematology/BMT and Cellular Therapy Program [address] [place] [address] [place] [phone] Isaura Wynn, SOCIAL MEDIA MANAGER 800 [facility] [address]st [place] [address] 03/10/2025 11:20 AM EDT Office Visit Pav CC Head, Neck & Respiratory 800 [facility], 2nd [place] [address] Elsa Razo, SOCIAL MEDIA MANAGER 800 [place] [address] documented as of this encounter Visit Diagnoses [...] documented as of this encounter Care Teams Commodities Broker Relationship Specialty Start Date End Date Zhao Harris MD 1210 [facility] [address] [place] [phone] PCP - General 12/03/20 documented as of this encounter
--- OUTSIDE RECORDS SUMMARY | 2025-01-30 13:16 | XMS_ITS | Encounter Summary ---
Author Organization [facility] Address [address] [place] [address] Care Team Providers Care Law Firm Partner Name Role Phone Zhao Harris MD Primary Care Provider [phone] Encounter Details Date Type Department Care Team [...] drink first t manav in the morning (EYE-APPLICATIONS SCIENTIST) to steady your nerves or to [...] Upcoming Encounters Date Type Department Care Team ([facility] Contact Info) Description 02/02/2025 9:30 AM EDT Appointment PAV A Interventional Radiology [address] [place] [address] 02/10/2025 8:30 AM EDT Clinical Support PAV CC Hematology/BMT and Cellular Therapy Program [address] [place] [address] [place] [address] 02/10/2025 9:00 AM EDT Office Visit PAV CC Hematology/BMT and Cellular Therapy Program [address] [place] [phone] Elaina Boss, PA 800 [facility] [address] [place] [phone] 02/10/2025 10:30 AM EDT Appointment [facility] Infusion [facility] 1 744 [place] [address] 02/11/2025 2:00 PM EDT Appointment [facility] Infusion [facility] 1 744 [place] [address] 02/12/2025 2:00 PM EDT Appointment [facility] Infusion [facility] 1 744 [place] [address] 02/13/2025 2:00 PM EDT Appointment [facility] Infusion [facility] 1 744 [place] [address] 02/14/2025 2:00 PM EDT Appointment [facility] Infusion [facility] 1 4 [place] [address] 03/10/2025 8:30 AM EDT Clinical Support PAV CC Hematology/BMT and Cellular Therapy Program [address] [place] [address] [place] [address] 03/10/2025 9:00 AM EDT Office Visit PAV CC Hematology/BMT and Cellular Therapy Program [address] [place] [address] [place] [address] Isaura Wynn, LEAD SHOP OPERATOR 800 [facility] [address] [address] 03/10/2025 11:20 AM EDT Office Visit Pav CC Head, Neck & Respiratory 800 [facility], 2nd [place] [address] Elsa Razo, LEAD SHOP OPERATOR 800 [place] [phone] documented as of this encounter Visit Diagnoses [...] as of this encounter Care Teams Law Firm Partner Relationship Specialty Start Date End Date Zhao Harris MD 1210 [facility] [address] [place] [phone] PCP - General 12/03/20 documented as of this encounter
--- OUTSIDE RECORDS SUMMARY | 2025-01-30 13:16 | XMS_ITS | Encounter Summary ---
Author Organization [facility] Address [address] [place] [address] Care Team Providers Care Terrazzo Finisher Name Role Phone Zhao Harris MD Primary Care Provider [phone] Encounter Details Date Type Department Care Team [...] drink first t manav in the morning (EYE-PATTERN RULER) to steady your nerves or to get [...] [facility] Contact Info) Description 02/02/2025 9:30 AM EDT Appointment PAV A Interventional Radiology [address] [place] [address] 02/10/2025 8:30 AM EDT Clinical Support PAV CC Hematology/BMT and Cellular Therapy Program [address] [place] [address] [place] [address] 02/10/2025 9:00 AM EDT Office Visit PAV CC Hematology/BMT and Cellular Therapy Program [address] [place] [phone] Elaina Boss, PA 800 [facility] [address] [place] [address] 02/10/2025 10:30 AM EDT Appointment [facility] Infusion Clinic 1 744 [place] [address] 02/11/2025 2:00 PM EDT Appointment [facility] Infusion Clinic 1 744 [place] [address] 02/12/2025 2:00 PM EDT Appointment [facility] Infusion [facility] 1 744 [place] [address] 02/13/2025 2:00 PM EDT Appointment [facility] Infusion [facility] 1 744 [place] [address] 02/14/2025 2:00 PM EDT Appointment P[facility] Infusion Clinic 1 4 [place] [address] 03/10/2025 8:30 AM EDT Clinical Support PAV CC Hematology/BMT and Cellular Therapy Program [address] [place] [address] [place] [address] 03/10/2025 9:00 AM EDT Office Visit PAV CC Hematology/BMT and Cellular Therapy Program [address] [place] [address] [address] [place] [address] Isaura Wynn, SUPERVISOR CUSTOMER RECORDS DIVISION 800 [facility] 1st [place] [address] 03/10/2025 11:20 AM EDT Office Visit Pav CC Head, Neck & Respiratory 800 [facility], 2nd [place] [address] Elsa Razo, SUPERVISOR CUSTOMER RECORDS DIVISION 800 [place] [address] documented as of this encounter Visit Diagnoses [...] documented as of this encounter Care Teams Terrazzo Finisher Relationship Specialty Start Date End Date Zhao Harris MD 1210 [facility] [address] [place] [phone] PCP - General 12/03/20 documented as of this encounter
--- OUTSIDE RECORDS SUMMARY | 2025-01-30 13:17 | XMS_ITS | Encounter Summary ---
Author Organization [facility] Address [address] [place] [address] Care Team Providers Care Hvac Sheet Metal Installer Name Role Phone Zhao Harris MD Primary Care Provider [phone] Encounter Details Date Type Department Care Team (Late st Contact Info) Description 12/04/2024 [facility]phone [facility] Interventional Radiology [address] [place] [address] Martha William Social History Tobacco [...] t manav in the morning (EYE-FOOD SAFETY SCIENTIST) to steady your nerves or to [...] they need to bandage it. Requesting CB@ [phone] documented in this encounter Plan of Treatment Upcoming Encounters Date Type Department Care Team (Late st Contact Info) Description 02/02/2025 9:30 AM EDT Appointment PAV A Interventional Radiology [address] [place] [address] 02/10/2025 8:30 AM EDT Clinical Support PAV Hematology/BMT and Cellular Therapy Program [address] [address] 02/10/2025 9:00 AM EDT Office Visit PAV CC Hematology/BMT and Cellular Therapy Program [address] [address] Elaina Boss, ARAM 800 [facility] [address] [place] [address] 02/10/2025 10:30 AM EDT Appointment [facility] Infusion [facility] 1 744 [place] [address] 02/11/2025 2:00 PM EDT Appointment [facility] Infusion [facility] 1 744 [place] [address] 02/12/2025 2:00 PM EDT Appointment [facility] Infusion [facility] 1 744 [place] [address] 02/13/2025 2:00 PM EDT Appointment [facility] Infusion [facility] 1 744 [place] [address] 02/14/2025 2:00 PM EDT Appointment [facility] Infusion [facility] 1 [address] [place] [address] 03/10/2025 8:30 AM EDT Clinical Support PAV Hematology/BMT and Cellular Therapy Program [address] [address] 03/10/2025 9:00 AM EDT Office Visit PAV Hematology/BMT and Cellular Therapy Program [address] [address] Isaura Wynn, PHOTOCOMPOSING MACHINE OPERATOR 800 [facility] 1st [place] [address] 03/10/2025 11:20 AM EDT Office Visit Pav CC Head, Neck & Respiratory 800 [facility], 2nd [place] [address] Elsa Razo, PHOTOCOMPOSING MACHINE OPERATOR 800 [place] [address] documented as of this encounter Visit Diagnoses [...] documented as of this encounter Care Teams Hvac Sheet Metal Installer Relationship Specialty Start Date End Date Zhao Harris MD [address] [address] PCP - General 12/03/20 documented as of this encounter
--- OUTSIDE RECORDS SUMMARY | 2025-01-30 13:17 | XMS_ITS | Encounter Summary ---
Author Organization [facility] Address [address] [place] [address] Care Team Providers Care Kilnman Name Role Phone Zhao Harris MD Primary Care Provider [phone] Encounter Details Date Type Department Care Team [...] drink first t manav in the morning (EYE-HL7 DEVELOPER) to steady your nerves or to [...] Team ([facility] Contact Info) Description 02/02/2025 9:30 AM EDT Appointment PAV A Interventional Radiology [address] [place] [address] 02/10/2025 8:30 AM EDT Clinical Support PAV CC Hematology/BMT and Cellular Therapy Program [address] [place] [address] [place] [address] 02/10/2025 9:00 AM EDT Office Visit PAV CC Hematology/BMT and Cellular Therapy Program [address] [place] [phone] Elaina Boss, PA 800 [facility] [address] [place] [address] 02/10/2025 10:30 AM EDT Appointment [facility] Infusion Clinic 1 744 [place] [address] 02/11/2025 2:00 PM EDT Appointment [facility] Infusion [facility] 1 744 [place] [address] 02/12/2025 2:00 PM EDT Appointment [facility] Infusion [facility] 1 744 [place] [address] 02/13/2025 2:00 PM EDT Appointment [facility] Infusion [facility] 1 [address]44 [place] [address] 02/14/2025 2:00 PM EDT Appointment [facility] Infusion [facility] 1 4 [place] [address] 03/10/2025 8:30 AM EDT Clinical Support PAV CC Hematology/BMT and Cellular Therapy Program [address] [place] [address] [place] [address] 03/10/2025 9:00 AM EDT Office Visit PAV CC Hematology/BMT and Cellular Therapy Program [address] [place] [address] [place] [address] Isaura Wynn, WELL SERVICING RIG OPERATOR 800 [facility] 1st [place] [address] 03/10/2025 11:20 AM EDT Office Visit Pav CC Head, Neck & Respiratory 800 [facility], 2nd [place] [address] Elsa Razo, WELL SERVICING RIG OPERATOR 800 [place] [address] documented as of this encounter Visit Diagnoses [...] documented as of this encounter Care Teams Kilnman Relationship Specialty Start Date End Date Zhao Harris MD 1210 [facility] [address] [place] [phone] PCP - General 12/03/20 documented as of this encounter
--- OUTSIDE RECORDS SUMMARY | 2025-01-30 13:17 | XMS_ITS | Encounter Summary ---
Author Organization [facility] Address [address] [place] [address] Care Team Providers Care Tea Bag Packer Name Role Phone Zhao Harris MD Primary Care Provider [phone] Encounter Details Date Type Department Care Team [...] drink first t manav in the morning (EYE-PUMP MACHINE OPERATOR) to steady your nerves or [...] Appointment PAV A Interventional Radiology [address] [place] [address] 02/10/2025 8:30 AM EDT Clinical Support PAV Hematology/BMT and Cellular Therapy Program [address] [address] 02/10/2025 9:00 AM EDT Office Visit PAV Hematology/BMT and Cellular Therapy Program [address] [place] [phone] Elaina Boss, ARAM 800 [facility] [address] [place] [address] 02/10/2025 10:30 AM EDT Appointment [facility] Infusion Clinic 1 744 [place] [address] 02/11/2025 2:00 PM EDT Appointment [facility] Infusion [facility] 1 744 [place] [address] 02/12/2025 2:00 PM EDT Appointment [facility] Infusion [facility] 1 744 [place] [address] 02/13/2025 2:00 PM EDT Appointment [facility] Infusion Clinic 1 744 [place] [address] 02/14/2025 2:00 PM EDT Appointment [facility] Infusion [facility] 1 744 [place] [address] 03/10/2025 8:30 AM EDT Clinical Support PAV CC Hematology/BMT and Cellular Therapy Program 750 [facility], [address] [place] [address] 03/10/2025 9:00 AM EDT Office Visit PAV CC Hematology/BMT and Cellular Therapy Program 750 [facility], [address] [place] [phone] Isaura Wynn, MALT HOUSE KILN OPERATOR 800 [facility] [address] [place] [address] 03/10/2025 11:20 AM EDT Office Visit Pav CC Head, Neck & Respiratory 800 [facility], 2nd [place] [address] Elsa Razo, MALT HOUSE KILN OPERATOR 800 [place] [phone] documented as of this encounter Visit Diagnoses [...] documented as of this encounter Care Teams Tea Bag Packer Relationship Specialty Start Date End Date Zhao Harris MD 1210 [facility] [address] [place] [address] PCP - General 12/03/20 documented as of this encounter
--- OUTSIDE RECORDS SUMMARY | 2025-01-30 13:17 | XMS_ITS | Encounter Summary ---
Author Organization [facility] Address [address] [place] [address] Care Team Providers Care Metal Fitter Name Role Phone Zhao Harris MD Primary Care Provider [phone] Encounter Details Date Type Department Care Team [...] drink first t manav in the morning (EYE-CERTIFIED CORPORATE TRAVEL EXECUTIVE) to steady your nerves or to [...] Care Team ([facility] Contact Info) Description 02/02/2025 9:30 AM EDT Appointment PAV A Interventional Radiology [address] [place] [address] 02/10/2025 8:30 AM EDT Clinical Support PAV CC Hematology/BMT and Cellular Therapy Program [address] [place] [address] [place] [address] 02/10/2025 9:00 AM EDT Office Visit PAV CC Hematology/BMT and Cellular Therapy Program [address] [place] [phone] Elaina Boss, PA 800 [facility] [address] [place] [address] 02/10/2025 10:30 AM EDT Appointment [facility] Infusion [facility] 1 744 [place] [address] 02/11/2025 2:00 PM EDT Appointment [facility] Infusion [facility] 1 744 [place] [address] 02/12/2025 2:00 PM EDT Appointment [facility] Infusion [facility] 1 744 [place] [address] 02/13/2025 2:00 PM EDT Appointment [facility] Infusion [facility] 1 744 [place] [address] 02/14/2025 2:00 PM EDT Appointment [facility] Infusion [facility] 1 4 [place] [address] 03/10/2025 8:30 AM EDT Clinical Support PAV CC Hematology/BMT and Cellular Therapy Program [address] [place] [address] [place] [address] 03/10/2025 9:00 AM EDT Office Visit PAV CC Hematology/BMT and Cellular Therapy Program [address] [place] [address] [place] [address] Isaura Wynn, RESTORER LACE AND TEXTILES 800 [facility] [address]st [place] [address] 03/10/2025 11:20 AM EDT Office Visit Pav CC Head, Neck & Respiratory 800 [facility], 2nd [place] [address] Elsa Razo, RESTORER LACE AND TEXTILES 800 [place] [address] documented as of this encounter Visit Diagnoses [...] as of this encounter Care Teams Metal Fitter Relationship Specialty Start Date End Date Zhao Harris MD 1210 [facility] [address] [place] [address] PCP - General 12/03/20 documented as of this encounter
--- OUTSIDE RECORDS SUMMARY | 2025-01-30 13:17 | XMS_ITS | Encounter Summary ---
Author Organization [facility] Address [address] [place] [address] Care Team Providers Care Electronics Worker Name Role Phone Zhao Harris MD Primary Care Provider [phone] Encounter Details Date Type Department Care Team [...] drink first t manav in the morning (EYE-CHRISTMAS BELL RINGER) to steady your nerves or to get [...] Team ([facility] Contact Info) Description 02/02/2025 9:30 AM EDT Appointment PAV A Interventional Radiology [address] [place] [address] 02/10/2025 8:30 AM EDT Clinical Support PAV CC Hematology/BMT and Cellular Therapy Program [address] [place] [address] [place] [address] 02/10/2025 9:00 AM EDT Office Visit PAV CC Hematology/BMT and Cellular Therapy Program [address] [place] [address] Elaina Boss, PA 800 [facility] [address] [place] [address] 02/10/2025 10:30 AM EDT Appointment P[facility] Infusion [facility] 1 744 [place] [address] 02/11/2025 2:00 PM EDT Appointment [facility] Infusion [facility] 1 744 [place] [address] 02/12/2025 2:00 PM EDT Appointment [facility] Infusion [facility] 1 7[address] [place] [address] 02/13/2025 2:00 PM EDT Appointment [facility] Infusion [facility] 1 7[address] [place] [address] 02/14/2025 2:00 PM EDT Appointment [facility] Infusion [facility] 1 4 [place] [address] 03/10/2025 8:30 AM EDT Clinical Support PAV CC Hematology/BMT and Cellular Therapy Program [address] [place] [address] [place] [address] 03/10/2025 9:00 AM EDT Office Visit PAV CC Hematology/BMT and Cellular Therapy Program [address] [place] [address] [place] [phone] Isaura Wynn, DIGESTER OPERATOR HELPER 800 [facility] [address] [place] [address] 03/10/2025 11:20 AM EDT Office Visit Pav CC Head, Neck & Respiratory 800 [facility], 2nd [place] [address] Elsa Razo, DIGESTER OPERATOR HELPER 800 [place] [address] documented as of this encounter Visit Diagnoses [...] as of this encounter Care Teams Electronics Worker Relationship Specialty Start Date End Date Zhao Harris MD 1210 [facility] [address] [place] [id number] PCP - General 12/03/20 documented as of this encounter
--- OUTSIDE RECORDS SUMMARY | 2025-01-30 13:17 | XMS_ITS | Encounter Summary ---
Author Organization [facility] Address [address] [place] [address] Care Team Providers Care Carding Machine Operator Name Role Phone Zhao Harris MD Primary Care Provider [phone] Encounter Details Date Type Department Care Team ([facility] st Contact Info) Description 12/23/2024 Orders Only PAV CC Hematology/BMT and Cellular Therapy Program [address] [place] [address] [place] [address] Adam Conway RN [facility] HEMATOLOGY PROGRAM [facility]INIC Myelodysplasia (myelodysplastic [...] first t manav in the morning (EYE-DIE ENGRAVING SUPERVISOR) to steady your nerves or to [...] Appointment PAV A Interventional Radiology [address] [place] [address] 02/10/2025 8:30 AM EDT Clinical Support PAV Hematology/BMT and Cellular Therapy Program [address] [address] 02/10/2025 9:00 AM EDT Office Visit PAV Hematology/BMT and Cellular Therapy Program [address] [address] Elaina Boss, PA 800 [facility] [address] [place] [address] 02/10/2025 10:30 AM EDT Appointment [facility] Infusion Clinic 1 744 [place] [address] 02/11/2025 2:00 PM EDT Appointment [facility] Infusion [facility] 1 [address] [place] [address] 02/12/2025 2:00 PM EDT Appointment [facility] Infusion [facility] 1 [address] [place] [address] 02/13/2025 2:00 PM EDT Appointment [facility] Infusion [facility] 1 [address] [place] [address] 02/14/2025 2:00 PM EDT Appointment [facility] Infusion [facility] 1 [address] [place] [address] 03/10/2025 8:30 AM EDT Clinical Support PAV CC Hematology/BMT and Cellular Therapy Program 750 [facility], [address] [place] [address] [place] [address] 03/10/2025 9:00 AM EDT Office Visit PAV CC Hematology/BMT and Cellular Therapy Program 750 [facility] [place] [address] Isaura Wynn, BARK SKINNER 800 [facility] [address]st [place] [address] 03/10/2025 11:20 AM EDT Office Visit Pav CC Head, Neck & Respiratory 800 [facility], 2nd [place] [address] Elsa Razo, BARK SKINNER 800 [place] [phone] Scheduled Orders Name Type Priority Associated Diagnoses Orde r Schedule CBC and Differential Lab Routine Myelodysplasia (myelodysplastic syndrome) (CMS/HCC) Expected: 01/06/2025, Expires: 06/26/2026 documented as of this encounter Visit Diagnoses Diagnosis Myelodysplasia (myelodysplastic syndrome) ([facility]/HCC)- Primary Myelodysplastic syndrome, unspecified documented in this encounter Additional Health Concerns Assessment Noted Time PHQ-9 Depression Total Score: 0 09/11/19 25 9:15 AM EST A fall risk assessment has been complete d for the patient 12/22/2024 8:26 AM EDT A Body Mass Index follow-up plan has been documented for the patient 12/16/2024 12:23 PM EDT documented as of this encounter Care Teams Carding Machine Operator Relationship Specialty Start Date End Date Zhao Harris MD 1210 [facility] [address] [place] [address] PCP - General 12/03/20 documented as of this encounter
--- OUTSIDE RECORDS SUMMARY | 2025-01-30 13:17 | XMS_ITS | Encounter Summary ---
Author Organization [facility] Address [address] [place] [address] Care Team Providers Care African Studies Professor Name Role Phone Zhao Harris MD Primary Care Provider [phone] Encounter Details Date Type Department Care Team ([facility] st Contact Info) Description 12/09/2024 Telephone PAV CC Hematology/BMT and Cellular Therapy Program [address] [place] [address] [place] [address] Essie Ricks RN [facility] HEMATOLOG[facility]GRAM CLINIC Social History Tobacco [...] first t manav in the morning (EYE-INTERNATIONAL BROADCAST MUSIC LIBRARIAN) to steady your nerves or to [...] Appointment PAV A Interventional Radiology [address] [place] [address] 02/10/2025 8:30 AM EDT Clinical Support PAV CC Hematology/BMT and Cellular Therapy Program [address] [address] 02/10/2025 9:00 AM EDT Office Visit PAV Hematology/BMT and Cellular Therapy Program [address] [place] [address] Elaina Boss, ARAM 800 [facility] [address] [place] [address] 02/10/2025 10:30 AM EDT Appointment [facility] Infusion Clinic 1 744 [place] [address] 02/11/2025 2:00 PM EDT Appointment [facility] Infusion [facility] 1 7[address] [place] [address] 02/12/2025 2:00 PM EDT Appointment [facility] Infusion [facility] 1 744 [place] [address] 02/13/2025 2:00 PM EDT Appointment [facility] Infusion [facility] 1 744 [place] [address] 02/14/2025 2:00 PM EDT Appointment P[facility] Infusion [facility] 1 [address] [place] [address] 03/10/2025 8:30 AM EDT Clinical Support PAV Hematology/BMT and Cellular Therapy Program 750 [facility], [address] [place] [address] 03/10/2025 9:00 AM EDT Office Visit PAV CC Hematology/BMT and Cellular Therapy Program [address] [address] Isaura Wynn, BUCKLE STAPLER 800 [facility] [address] [place] [address] 03/10/2025 11:20 AM EDT Office Visit Pav CC Head, Neck & Respiratory 800 [facility], 2nd [place] [address] Elsa Razo, BUCKLE STAPLER 800 [place] [address] documented as of this encounter Visit Diagnoses [...] documented as of this encounter Care Teams African Studies Professor Relationship Specialty Start Date End Date Zhao Harris MD 1210 [facility] [address] [place] [address] PCP - General 12/03/20 documented as of this encounter
--- OUTSIDE RECORDS SUMMARY | 2025-01-30 13:17 | XMS_ITS | Encounter Summary ---
Author Organization [facility] Address [address] [place] [address] Care Team Providers Care Director Sales And Marketing Name Role Phone Zhao Harris MD Primary Care Provider [phone] Encounter Details Date Type Department Care Team [...] drink first t manav in the morning (EYE-LIGHTING EQUIPMENT OPERATOR) to steady your nerves or [...] Encounters Date Type Department Care Team ([facility] Contact Info) Description 02/02/2025 9:30 AM EDT Appointment PAV A Interventional Radiology [address] [place] [address] 02/10/2025 8:30 AM EDT Clinical Support PAV CC Hematology/BMT and Cellular Therapy Program [address] [place] [address] [place] [address] 02/10/2025 9:00 AM EDT Office Visit PAV CC Hematology/BMT and Cellular Therapy Program [address] [place] [address] Elaina Boss, PA 800 [facility] [address] [place] [address] 02/10/2025 10:30 AM EDT Appointment [facility] Infusion Clinic 1 744 [place] [address] 02/11/2025 2:00 PM EDT Appointment P[facility] Infusion Clinic 1 744 [place] [address] 02/12/2025 2:00 PM EDT Appointment [facility] Infusion [facility] 1 744 [place] [address] 02/13/2025 2:00 PM EDT Appointment P[facility] Infusion [facility] 1 744 [place] [address] 02/14/2025 2:00 PM EDT Appointment PAV Infusion Clinic 1 4 [place] [address] 03/10/2025 8:30 AM EDT Clinical Support PAV CC Hematology/BMT and Cellular Therapy Program [address] [place] [address] [place] [address] 03/10/2025 9:00 AM EDT Office Visit PAV CC Hematology/BMT and Cellular Therapy Program [address] [place] [address] [place] [address] Isaura Wynn, PUPPET MAKER 800 [facility] [address]st [place] [address] 03/10/2025 11:20 AM EDT Office Visit Pav CC Head, Neck & Respiratory 800 [facility], 2nd [place] [address] Elsa Razo, PUPPET MAKER 800 [place] [address] documented as of this encounter Visit Diagnoses [...] as of this encounter Care Teams Director Sales And Marketing Relationship Specialty Start Date End Date Zhao Harris MD 1210 [facility] [address] [place] [address] PCP - General 12/03/20 documented as of this encounter
--- OUTSIDE RECORDS SUMMARY | 2025-01-30 13:17 | XMS_ITS | Encounter Summary ---
Author Organization [facility] Address [address] [place] [address] Care Team Providers Care Steel Finisher Name Role Phone Zhao Harris MD Primary Care Provider [phone] Encounter Details Date Type Department Care Team [...] drink first t manav in the morning (EYE-MONTESSORI PRESCHOOL TEACHER) to steady your nerves or to [...] Appointment PAV A Interventional Radiology [address] [place] [address] 02/10/2025 8:30 AM EDT Clinical Support PAV CC Hematology/BMT and Cellular Therapy Program [address] [place] [address] [place] [address] 02/10/2025 9:00 AM EDT Office Visit PAV CC Hematology/BMT and Cellular Therapy Program [address] [place] [address] Elaina Boss, PA 800 [facility] [address] [place] [address] 02/10/2025 10:30 AM EDT Appointment P[facility] Infusion Clinic 1 744 [place] [address] 02/11/2025 2:00 PM EDT Appointment P[facility] Infusion Clinic 1 7[address] [place] [address] 02/12/2025 2:00 PM EDT Appointment P[facility] Infusion Clinic 1 7[address] [place] [address] 02/13/2025 2:00 PM EDT Appointment PAV Infusion Clinic 1 [address] [place] [address] 02/14/2025 2:00 PM EDT Appointment PAV Infusion Clinic 1 4 [place] [address] 03/10/2025 8:30 AM EDT Clinical Support PAV CC Hematology/BMT and Cellular Therapy Program [address] [place] [address] [place] [address] 03/10/2025 9:00 AM EDT Office Visit PAV CC Hematology/BMT and Cellular Therapy Program [address] [place] [address] [place] [address] Isaura Wynn, METHODS STUDY ANALYST 800 [facility] [address] [place] [address] 03/10/2025 11:20 AM EDT Office Visit Pav CC Head, Neck & Respiratory 800 [facility], 2nd [place] [address] Elsa Razo, METHODS STUDY ANALYST 800 [place] [address] documented as of this encounter Visit Diagnoses [...] documented as of this encounter Care Teams Steel Finisher Relationship Specialty Start Date End Date Zhao Harris MD 1210 [facility] [address] [place] [phone] PCP - General 12/03/20 documented as of this encounter
--- OUTSIDE RECORDS SUMMARY | 2025-01-30 13:17 | XMS_ITS ---
Author Organization [facility] Address [address] [place] [address] Care Team Providers Care Mixing Pan Tender Name Role Phone Zhao Harris MD Primary Care Provider [phone] Active Problems Problem Noted Date Diagnosed Date [...] (CMS/HCC) Treatment Medications Current Day (Day 1 9, Cycle 1 - Planned for 01/31/2025) Next Day (Day 22, Cycle 1 - Planned for 02/03/2025) decitabine (Dacogen)decitabi ne (Dacogen) IVPBvenetoclax (Venclexta) No medications scheduled. No medications scheduled. HEM/BMT Blood Administration for Outpatient* Plan Start Date:10/22/2024 Plan Provider:Kayli Ospina PA Linked Problems Myelodysplasia (myelodysplas tic syndrome) ([facility]/HCC)Thrombocytopenia (CMS/HCC) Treatment Medications No medications scheduled. Past [...]
--- OUTSIDE RECORDS SUMMARY | 2025-01-30 13:18 | XMS_ITS | Encounter Summary ---
Author Organization [facility] Address [address] [place] [address] Care Team Providers Care Block Feeder Name Role Phone Zhao Harris MD Primary Care Provider [phone] Encounter Details Date Type Department Care Team [...] drink first t manav in the morning (EYE-SCULPTURE CONSERVATOR) to steady your nerves or to get [...] Type Department Care Team ([facility] Contact Info) Description 02/02/2025 9:30 AM EDT Appointment PAV A Interventional Radiology [address] [place] [address] 02/10/2025 8:30 AM EDT Clinical Support PAV CC Hematology/BMT and Cellular Therapy Program [address] [place] [address] [place] [address] 02/10/2025 9:00 AM EDT Office Visit PAV CC Hematology/BMT and Cellular Therapy Program [address] [place] [address] Elaina Boss, PA 800 [facility] [address] [place] [address] 02/10/2025 10:30 AM EDT Appointment P[facility] Infusion Clinic 1 744 [place] [address] 02/11/2025 2:00 PM EDT Appointment P[facility] Infusion Clinic 1 7[address] [place] [address] 02/12/2025 2:00 PM EDT Appointment P[facility] Infusion [facility] 1 744 [place] [address] 02/13/2025 2:00 PM EDT Appointment P[facility] Infusion [facility] 1 7[address] [place] [address] 02/14/2025 2:00 PM EDT Appointment P[facility] Infusion [facility] 1 4 [place] [address] 03/10/2025 8:30 AM EDT Clinical Support PAV CC Hematology/BMT and Cellular Therapy Program [address] [place] [address] [place] [address] 03/10/2025 9:00 AM EDT Office Visit PAV CC Hematology/BMT and Cellular Therapy Program [address] [place] [address] [place] [address] Isaura Wynn, FACILITY MAINTENANCE SUPERVISOR 800 [facility] [address]st [place] [address] 03/10/2025 11:20 AM EDT Office Visit Pav CC Head, Neck & Respiratory 800 [facility], 2nd [place] [address] Elsa Razo, FACILITY MAINTENANCE SUPERVISOR 800 [place] [address] documented as of this encounter Visit Diagnoses [...] documented as of this encounter Care Teams Block Feeder Relationship Specialty Start Date End Date Zhao Harris MD 1210 [facility] [address] [place] [address] PCP - General 12/03/20 documented as of this encounter
--- OUTSIDE RECORDS SUMMARY | 2025-01-30 13:18 | XMS_ITS | Encounter Summary ---
Author Organization [facility] Address [address] [place] [address] Care Team Providers Care Chief Passenger Ship Steward/Stewardess Name Role Phone Zhao Harris MD Primary Care Provider [phone] Encounter Details Date Type Department Care Team [...] drink first t manav in the morning (EYE-SUPPLY CLERK) to steady your nerves or to [...] ([facility] Contact Info) Description 02/02/2025 9:30 AM EDT Appointment PAV A Interventional Radiology [address] [place] [address] 02/10/2025 8:30 AM EDT Clinical Support PAV CC Hematology/BMT and Cellular Therapy Program [address] [place] [address] [place] [address] 02/10/2025 9:00 AM EDT Office Visit PAV CC Hematology/BMT and Cellular Therapy Program [address] [place] [address] Elaina Boss, PA 800 [facility] [address] [place] [address] 02/10/2025 10:30 AM EDT Appointment [facility] Infusion Clinic 1 744 [place] [address] 02/11/2025 2:00 PM EDT Appointment P[facility] Infusion Clinic 1 7[address] [place] [address] 02/12/2025 2:00 PM EDT Appointment P[facility] Infusion Clinic 1 [address] [place] [address] 02/13/2025 2:00 PM EDT Appointment PAV Infusion Clinic 1 [address] [place] [address] 02/14/2025 2:00 PM EDT Appointment PAV Infusion Clinic 1 4 [place] [address] 03/10/2025 8:30 AM EDT Clinical Support PAV CC Hematology/BMT and Cellular Therapy Program [address] [place] [address] [place] [address] 03/10/2025 9:00 AM EDT Office Visit PAV CC Hematology/BMT and Cellular Therapy Program [address] [place] [address] [place] [address] Isaura Wynn, CERTIFIED WELLNESS PROGRAM MANAGER 800 [facility] [address]st [place] [address] 03/10/2025 11:20 AM EDT Office Visit Pav CC Head, Neck & Respiratory 800 [facility], 2nd [place] [address] Elsa Razo, CERTIFIED WELLNESS PROGRAM MANAGER 800 [place] [address] documented as of this encounter Visit Diagnoses [...] as of this encounter Care Teams Chief Passenger Ship Steward/Stewardess Relationship Specialty Start Date End Date Zhao Harris MD 1210 [facility] [address] [place] [phone] PCP - General 12/03/20 documented as of this encounter
--- OUTSIDE RECORDS SUMMARY | 2025-01-30 13:18 | XMS_ITS | Encounter Summary ---
Author Organization [facility] Address [address] [place] [address] Care Team Providers Care Scientific Affairs Manager Name Role Phone Zhao Harris MD Primary Care Provider [phone] Encounter Details Date Type Department Care Team ([facility] st Contact Info) Description 11/05/2024 Results Follow-Up Pav CC Head, Neck & Respiratory 800 [facility], 2nd [place] [address] Elsa Razo, POT ROOM TAPPER 800 [place] [address] Social History Tobacco Use Types Packs/Day Years [...] drink first t manav in the morning (EYE-RELAY WORKER) to steady your nerves or to [...] Appointment PAV A Interventional Radiology [address] [place] [address] 02/10/2025 8:30 AM EDT Clinical Support PAV Hematology/BMT and Cellular Therapy Program [address] [address] 02/10/2025 9:00 AM EDT Office Visit PAV Hematology/BMT and Cellular Therapy Program [address] [address] Elaina Boss, ARAM 800 [facility] [address] [place] [address] 02/10/2025 10:30 AM EDT Appointment P[facility] Infusion Clinic 1 744 [place] [address] 02/11/2025 2:00 PM EDT Appointment P[facility] Infusion Clinic 1 744 [place] [address] 02/12/2025 2:00 PM EDT Appointment P[facility] Infusion Clinic 1 744 [place] [address] 02/13/2025 2:00 PM EDT Appointment P[facility] Infusion Clinic 1 7[address] [place] [address] 02/14/2025 2:00 PM EDT Appointment P[facility] Infusion Clinic 1 [address] [place] [address] 03/10/2025 8:30 AM EDT Clinical Support PAV CC Hematology/BMT and Cellular Therapy Program [address] [address] 03/10/2025 9:00 AM EDT Office Visit PAV CC Hematology/BMT and Cellular Therapy Program [address] [address] Isaura Wynn, POT ROOM TAPPER 800 [facility] [address] [place] [address] 03/10/2025 11:20 AM EDT Office Visit Pav CC Head, Neck & Respiratory 800 [facility], 2nd [place] [address] Elsa Razo, POT ROOM TAPPER 800 [place] [address] documented as of this encounter Visit Diagnoses [...] documented as of this encounter Care Teams Scientific Affairs Manager Relationship Specialty Start Date End Date Zhao Harris MD [address] [place] [address] PCP - General 12/03/20 documented as of this encounter
--- OUTSIDE RECORDS SUMMARY | 2025-01-30 13:18 | XMS_ITS | Encounter Summary ---
Author Organization [facility] Address [address] [place] [address] Care Team Providers Care Embossing Tool Setter Name Role Phone Zhao Harris MD Primary Care Provider [phone] Encounter Details Date Type Department Care Team [...] drink first t manav in the morning (EYE-CUP TRIMMING MACHINE OPERATOR) to steady your nerves or [...] Upcoming Encounters Date Type Department Care Team ([facility] Contact Info) Description 02/02/2025 9:30 AM EDT Appointment PAV A Interventional Radiology [address] [place] [address] 02/10/2025 8:30 AM EDT Clinical Support PAV CC Hematology/BMT and Cellular Therapy Program [address] [place] [address] [place] [address] 02/10/2025 9:00 AM EDT Office Visit PAV CC Hematology/BMT and Cellular Therapy Program [address] [place] [address] Elaina Boss, PA 800 [facility] [address] [place] [address] 02/10/2025 10:30 AM EDT Appointment P[facility] Infusion Clinic 1 744 [place] [address] 02/11/2025 2:00 PM EDT Appointment P[facility] Infusion Clinic 1 744 [place] [address] 02/12/2025 2:00 PM EDT Appointment P[facility] Infusion [facility] 1 744 [place] [address] 02/13/2025 2:00 PM EDT Appointment P[facility] Infusion [facility] 1 744 [place] [address] 02/14/2025 2:00 PM EDT Appointment [facility] Infusion [facility] 1 4 [place] [address] 03/10/2025 8:30 AM EDT Clinical Support PAV CC Hematology/BMT and Cellular Therapy Program [address] [place] [address] [place] [address] 03/10/2025 9:00 AM EDT Office Visit PAV CC Hematology/BMT and Cellular Therapy Program [address] [place] [address] [place] [address] Isaura Wynn, SENIOR PLANNING ANALYST 800 [facility] [address]st [place] [address] 03/10/2025 11:20 AM EDT Office Visit Pav CC Head, Neck & Respiratory 800 [facility], 2nd [place] [address] Elsa Razo, SENIOR PLANNING ANALYST 800 [place] [address] documented as of this encounter Visit Diagnoses [...] documented as of this encounter Care Teams Embossing Tool Setter Relationship Specialty Start Date End Date Zhao Harris MD 1210 [facility] [address] [place] [id number] PCP - General 12/03/20 documented as of this encounter
--- OUTSIDE RECORDS SUMMARY | 2025-01-30 13:18 | XMS_ITS | Encounter Summary ---
Author Organization [facility] Address [address] [place] [address] Care Team Providers Care Nurse Practitioner Physician Assistant Name Role Phone Zhao Harris MD Primary Care Provider [phone] Encounter Details Date Type Department Care Team [...] drink first t manav in the morning (EYE-CONSULTING SERVICES MANAGER) to steady your nerves or to [...] ([facility] Contact Info) Description 02/02/2025 9:30 AM EDT Appointment [facility] Interventional Radiology [address] [place] [address] 02/10/2025 8:30 AM EDT Clinical Support [facility] Hematology/BMT and Cellular Therapy Program [address] [place] [address] [place] [address] 02/10/2025 9:00 AM EDT Office Visit [facility] Hematology/BMT [facility] Cellular Therapy Program [address] [place] [phone] Elaina Boss, PA [address] [facility] [address] [place] [phone] 02/10/2025 10:30 AM EDT Appointment [facility] [address] [place] [address] 02/11/2025 2:00 PM EDT Appointment [facility] [address] [place] [address] 02/12/2025 2:00 PM EDT Appointment [facility] [address] [place] [address] 02/13/2025 2:00 PM EDT Appointment [facility] [address] [place] [address] 02/14/2025 2:00 PM EDT Appointment [facility] [address] [place] [address] 03/10/2025 8:30 AM EDT Clinical Support [facility] Hematology/BMT [facility] Cellular Therapy Program [address] [place] [address] [place] [address] 03/10/2025 9:00 AM EDT Office Visit [facility] Hematology/BMT and Cellular Therapy Program [address] [place] [address] [place] [phone] Isaura Wynn, DIRECTOR OF [employer] [address] [facility] [address] [place] [address] 03/10/2025 11:20 AM EDT Office Visit [facility] Head, Neck & Respiratory [address] [facility], [address] [place] [address] Elsa Razo, [employer] [address] [place] [phone] documented as of this encounter Visit Diagnoses [...] as of this encounter Care Teams Nurse Practitioner Physician Assistant Relationship Specialty Start Date End Date Zhao Harris MD [address] [facility] [address] [place] [address] PCP - General 12/03/20 documented as of this encounter
--- OUTSIDE RECORDS SUMMARY | 2025-01-30 13:18 | XMS_ITS | Clinical Summary ---
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, unspecified vessel or [...] 30 tablet 3 5 Active HYDROcodone-shalom taminophen (Greenwood) 5-325 MG tablet Take 1 tablet by [...] Telephone [facility] Interventional Radiology [address] [place] [address] Bandar Cleary RN 01/22/2025 Telephone [facility] Hematology/BMT and Cellular Therapy Program [address] [place] [address] Virgen Vargas MD 01/20/2025 Telephone [facility] Hematology/BMT and Cellular Therapy Program [address] [place] [address] Elaina Boss PA 01/17/2025 7:45 AM EDT - 01/17/2025 11:59 PM EDT Hospital Encounter [facility] Infusion [address] [place] [address] Myelodysplasia (myelodysplastic syndrome) (CMS/HCC) (Primary Dx); Thrombocytopenia (CMS/HCC) Discharge Disposition: Home or Self Care 01/17/2025 Travel 01/16/2025 7:55 AM EDT - 01/16/2025 11:59 PM EDT Hospital Encounter [facility] Infusion [address] [place] [address] Myelodysplasia (myelodysplastic syndrome) (CMS/HCC) (Primary Dx) Discharge Disposition: Home or Self Care 01/16/2025 Travel 01/15/2025 9:58 AM EDT - 01/15/2025 11:59 PM EDT Hospital Encounter [facility] Infusion [address] [place] [address] Discharge Disposition: Home or Self Care 01/15/2025 8:11 AM EDT - 01/15/2025 9:57 AM EDT Hospital Encounter [facility] Infusion [address] [place] [address] Myelodysplasia (myelodysplastic syndrome) (CMS/HCC) (Primary Dx); Thrombocytopenia (CMS/HCC) Discharge Disposition: Home or Self Care 01/15/2025 Travel 01/14/2025 8:07 AM EDT - 01/14/2025 11:59 PM EDT Hospital Encounter [facility] 1 [address] [place] [address] Myelodysplasia (myelodysplastic syndrome) (CMS/HCC) (Primary Dx) Discharge Disposition: Home or Self Care 01/14/2025 Travel 01/13/2025 11:30 AM EDT - 01/13/2025 11:59 PM EDT Hospital Encounter [facility] Infusion [address] [place] [address] Myelodysplasia (myelodysplastic syndrome) (CMS/HCC) (Primary Dx); Thrombocytopenia (CMS/HCC) Discharge Disposition: Home or Self Care 01/13/2025 10:00 AM EDT Office Visit [facility] Hematology/BMT and Cellular Therapy Program [address] [phone] Isaura Wynn APRN Myelodysplasia (myelodysplastic syndrome) ([facility]/HCC) (Primary Dx) 01/13/2025 9:30 AM EDT Clinical Support [facility] Hematology/BMT and Cellular Therapy Program [address] [phone] 01/13/2025 Travel 01/12/2025 Telephone [facility] Hematology/BMT and Cellular Therapy Program [address] [address] Virgen Vargas MD 01/06/2025 9:00 AM EDT Procedure Visit [facility] Hematology/BMT and Cellular Therapy Program [address] [place] [address] Kierra Novak APRN Myelodysplasia (myelodysplastic syndrome) ([facility]/HCC) 01/06/2025 8:30 AM EDT Clinical Support [facility] Hematology/BMT and Cellular Therapy Program [address] [phone] Nate Ponce RN 01/06/2025 Travel 01/05/2025 Travel 01/01/2025 [facility] [place] [address] [facility] [place] [address] Ra Best MD 12/23/2024 Orders Only [facility] Hematology/BMT and Cellular Therapy Program [address] [phone] Adam Conway RN Myelodysplasia (myelodysplastic syndrome) ([facility]) (Primary Dx) 12/22/2024 9:58 AM EDT - 12/22/2024 11:59 PM EDT Hospital Encounter [facility] Infusion [address] [place] [address] Myelodysplasia (myelodysplastic syndrome) ([facility]/HCC) (Primary Dx) Discharge Disposition: Home or Self Care 12/22/2024 8:24 AM EDT - 12/22/2024 9:57 AM EDT Hospital Encounter [facility] Infusion [address] [place] [address] Myelodysplasia (myelodysplastic syndrome) (CMS/HCC) (Primary Dx); Thrombocytopenia (CMS/HCC) Discharge Disposition: Home or Self Care 12/22/2024 Travel 12/21/2024 8:30 AM EDT - 12/21/2024 11:59 PM EDT Hospital Encounter [facility] 1 [address] [place] [address] Myelodysplasia (myelodysplastic syndrome) (CMS/HCC) (Primary Dx) Discharge Disposition: Home or Self Care 12/21/2024 Travel 12/20/2024 8:08 AM EDT - 12/20/2024 11:59 PM EDT Hospital Encounter [facility] 1 [address] [place] [address] Myelodysplasia (myelodysplastic syndrome) (CMS/HCC) (Primary Dx); Thrombocytopenia (CMS/HCC); SOB (shortness of breath) Discharge Disposition: Home or Self Care 12/20/2024 Travel 12/19/2024 8:30 AM EDT - 12/19/2024 11:59 PM EDT Hospital Encounter [facility] 2 [address] [place] [address] Myelodysplasia (myelodysplastic syndrome) (CMS/HCC) (Primary Dx) Discharge Disposition: Home or Self Care 12/19/2024 Travel 12/18/2024 9:46 AM EDT - 12/18/2024 11:59 PM EDT Hospital Encounter [facility]fusion [address] [place] [address] Myelodysplasia (myelodysplastic syndrome) (CMS/HCC) (Primary Dx) Discharge Disposition: Home or Self Care 12/18/2024 8:30 AM EDT - 12/18/2024 9:45 AM EDT Hospital Encounter [facility]fusion [address] [place] [address] Myelodysplasia (myelodysplastic syndrome) (CMS/HCC) (Primary Dx); Thrombocytopenia (CMS/HCC) Discharge Disposition: Home or Self Care 12/18/2024 Travel 12/17/2024 8:23 AM EDT - 12/17/2024 11:59 PM EDT Hospital Encounter [facility] Infusion [address] [place] [address] Myelodysplasia (myelodysplastic syndrome) (CMS/HCC) (Primary Dx); Thrombocytopenia (CMS/HCC) Discharge Disposition: Home or Self Care 12/17/2024 Travel 12/16/2024 11:00 AM EDT - 12/16/2024 11:59 PM EDT Hospital Encounter [facility] Infusion [address] [place] [address] Myelodysplasia (myelodysplastic syndrome) (CMS/HCC) (Primary Dx) Discharge Disposition: Home or Self Care 12/16/2024 10:00 AM EDT - 12/16/2024 10:59 AM EDT Hospital Encounter [facility] Infusion [address] [place] [address] Myelodysplasia (myelodysplastic syndrome) (CMS/HCC) (Primary Dx); Thrombocytopenia (CMS/HCC) Discharge Disposition: Home or Self Care 12/16/2024 8:30 AM EDT Office Visit [facility] Hematology/BMT and Cellular Therapy Program [address] [place] [address] Isaura Wynn APRN Myelodysplasia (myelodysplastic syndrome) (CMS/HCC) (Primary Dx) 12/16/2024 8:00 AM EDT Clinical Support [facility] Hematology/BMT and Cellular Therapy Program [address] [place] [address] 12/16/2024 Orders Only [facility] Hematology/BMT and Cellular Therapy Program [address] [place] [address] Christina Ramos MD Myelodysplasia (myelodysplastic syndrome) (CMS/HCC) (Primary Dx) 12/16/2024 Travel 12/12/2024 Orders Only [facility] Hematology/BMT and Cellular Therapy Program [address] [place] [address] Gricel Gonzalez RN 12/11/2024 2:30 PM EDT Office Visit [facility] Vascular Interventional Radiology [address] [place] [phone] Judy Leung APRN, DNP Port-A-Cath in place (Primary Dx); Myelodysplasia (myelodysplastic syndrome) (CMS/HCC) 12/11/2024 1:00 PM EDT Clinical Support [facility] [address] [facility], [address] [place] [address] Myelodysplasia (myelodysplastic syndrome) (CMS/HCC) (Primary Dx); Thrombocytopenia (CMS/HCC) 12/11/2024 9:00 AM EDT Office Visit [facility] Hematology/BMT and Cellular Therapy Program [address] [place] [phone] Virgen Vargas MD Myelodysplasia (myelodysplastic syndrome) (CMS/HCC) (Primary Dx); Encounter for antineoplastic chemotherapy; 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); Pancytopenia due to chemotherapy (CMS/HCC); Immunosuppressed due to chemotherapy 12/11/2024 8:30 AM EDT Clinical Support [facility] Hematology/BMT and Cellular Therapy Program [address] [place] [address] Myelodysplasia (myelodysplastic syndrome) (CMS/HCC) 12/11/2024 Orders Only [facility] Hematology/BMT and Cellular Therapy Program [address] [place] [phone] Shahla Mejia RN 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) (Primary Dx) 12/11/2024 Travel 12/09/2024 1:30 PM EDT Clinical Support [facility] [address] [facility], [address] [place] [address] Myelodysplasia (myelodysplastic syndrome) (CMS/HCC) (Primary Dx); Thrombocytopenia (CMS/HCC) 12/09/2024 9:00 AM EDT Procedure Visit [facility] Hematology/BMT and Cellular Therapy Program [address] [phone] Kierra Novak APRN Myelodysplasia (myelodysplastic syndrome) (CMS/HCC) 12/09/2024 8:30 AM EDT Clinical Support [facility] Hematology/BMT and Cellular Therapy Program [address] [facility], [address] [place] [phone] 12/09/2024 Telephone [facility] Hematology/BMT and Cellular Therapy Program [address] [phone] Essie Ricks RN 12/09/2024 Travel 12/08/2024 Travel 12/04/2024 Telephone [facility] Vascular Interventional Radiology [address] [facility] [address] [place] [address] Martha William 12/01/2024 8:41 AM EDT - 12/01/2024 11:59 PM EDT Hospital Encounter [facility] Interventional Radiology [address] [place] [phone] Gela Singer Thrombocytopenia (CMS/HCC) (Primary Dx); Myelodysplasia (myelodysplastic syndrome) (CMS/HCC) Discharge Disposition: Home or Self Care 12/01/2024 Travel 11/26/2024 10:00 AM EDT Office Visit [facility] Vascular Interventional Radiology [address] [facility] [address] [place] [address] Latoya Nunez APRN Preop examination (Primary Dx) 11/26/2024 Travel 11/25/2024 Telephone [facility] Hematology/BMT and Cellular Therapy Program [address] [phone] Michelle Mast Distress Screen Follow-up 11/24/2024 2:30 PM EDT - 11/24/2024 11:59 PM EDT Hospital Encounter [facility] Infusion [facility] 1 [address] [place] [address] Discharge Disposition: Home or Self Care 11/24/2024 1:59 PM EDT - 11/24/2024 2:29 PM EDT Hospital Encounter [facility] Infusion Clinic 1 [address] [place] [address] Myelodysplasia (myelodysplastic syndrome) (CMS/HCC) (Primary Dx); Thrombocytopenia (CMS/HCC) Discharge Disposition: Home or Self Care 11/24/2024 Travel 11/23/2024 1:43 PM EDT - 11/23/2024 11:59 PM EDT Hospital Encounter [facility] Infusion Clinic 1 [address] [place] [address] Myelodysplasia (myelodysplastic syndrome) (CMS/HCC) (Primary Dx) Discharge Disposition: Home or Self Care 11/23/2024 Travel 11/22/2024 1:59 PM EDT - 11/22/2024 11:59 PM EDT Hospital Encounter [facility] Infusion Clinic 1 [address] [place] [address] Myelodysplasia (myelodysplastic syndrome) (CMS/HCC) (Primary Dx); Thrombocytopenia (CMS/HCC) Discharge Disposition: Home or Self Care 11/22/2024 Travel 11/21/2024 1:30 PM EDT - 11/21/2024 11:59 PM EDT Hospital Encounter [facility] Infusion Clinic 1 [address] [place] [address] Myelodysplasia (myelodysplastic syndrome) (CMS/HCC) (Primary Dx) Discharge Disposition: Home or Self Care 11/21/2024 Travel 11/20/2024 2:06 PM EDT - 11/20/2024 11:59 PM EDT Hospital Encounter [facility] Infusion Clinic 1 [address] [place] [address] Myelodysplasia (myelodysplastic syndrome) (CMS/HCC) (Primary Dx) Discharge Disposition: Home or Self Care 11/20/2024 1:36 PM EDT - 11/20/2024 2:05 PM EDT Hospital Encounter [facility] Infusion Clinic 1 [address] [place] [address] Myelodysplasia (myelodysplastic syndrome) (CMS/HCC) (Primary Dx); Thrombocytopenia (CMS/HCC) Discharge Disposition: Home or Self Care 11/20/2024 Travel 11/19/2024 2:00 PM EDT - 11/19/2024 11:59 PM EDT Hospital Encounter [facility] 1 [address] [place] [address] Myelodysplasia (myelodysplastic syndrome) (CMS/HCC) (Primary Dx) Discharge Disposition: Home or Self Care 11/19/2024 Travel 11/19/2024 Orders Only [facility] Hematology/BMT and Cellular Therapy Program [address] [phone] Adam Conway, RN Myelodysplasia (myelodysplastic syndrome) (CMS/HCC) (Primary Dx) 11/18/2024 12:25 PM EDT - 11/18/2024 11:59 PM EDT Hospital Encounter [facility] 1 [address] [place] [address] Myelodysplasia (myelodysplastic syndrome) (CMS/HCC) (Primary Dx); Thrombocytopenia (CMS/HCC) Discharge Disposition: Home or Self Care 11/18/2024 11:00 AM EDT Office Visit [facility] Hematology/BMT and Cellular Therapy Program [address] [phone] Isaura Wynn APRN Myelodysplasia (myelodysplastic syndrome) (CMS/HCC) (Primary Dx) 11/18/2024 10:30 AM EDT Clinical Support [facility] Hematology/BMT and Cellular Therapy Program [address] [phone] 11/18/2024 Telephone [facility] [address] [place] [address] Maia Velasquez, PharmD 11/18/2024 Telephone [facility] Hematology/BMT and Cellular Therapy Program [address] [place] [address] Brittny Mahoney, RN 11/18/2024 Telephone [facility] Hematology/BMT and Cellular Therapy Program [address] [place] [address] Gricel Gonzalez RN 11/18/2024 Travel 11/17/2024 Travel 11/10/2024 3:00 PM EDT - 11/10/2024 11:59 PM EDT Hospital Encounter [facility] [address] [place] [address] Myelodysplasia (myelodysplastic syndrome) (CMS/HCC) (Primary Dx); Thrombocytopenia (CMS/HCC) Discharge Disposition: Home or Self Care 11/10/2024 2:00 PM EDT Procedure Visit [facility] Hematology/BMT and Cellular Therapy Program [address] [place] [address] Elaina Boss PA Myelodysplasia (myelodysplastic syndrome) (CMS/HCC) (Primary Dx) 11/10/2024 1:30 PM EDT Clinical Support [facility] Hematology/BMT and Cellular Therapy Program [address] [facility], [address] [place] [address] Eliana Vicente RN 11/10/2024 Travel 11/05/2024 11:00 AM EDT Clinical Support [facility] [address] [facility], [address] [place] [address] Dyspnea on exertion 11/05/2024 10:00 AM EDT Office Visit [facility] [address] [phone] Elsa Razo, FOOD AND NUTRITION SUPERVISOR Pre-transplant evaluation for stem cell transplant (Primary Dx); Myelodysplasia (myelodysplastic syndrome) (CMS/HCC); Dyspnea on exertion; 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 angina pectoris; Thrombocytopenia (CMS/HCC) 11/05/2024 Results Follow-Up [facility] [address] [facility], [address] [place] [phone] Elsa Razo, FOOD AND NUTRITION SUPERVISOR 11/05/2024 Travel 11/03/2024 2:31 PM EDT - 11/03/2024 6:28 PM EDT Emergency [facility] Emergency Department [address] [place] [address] Kyle Bearden MD Symptomatic anemia (Primary Dx); Thrombocytopenia (CMS/HCC); Neutropenia, unspecified type (CMS/HCC) Discharge Disposition: Home or Self Care 11/03/2024 Travel 11/03/2024 Telephone [facility] Hematology/BMT and Cellular Therapy Program [address] [place] [address] Virgen Vargas MD from Last 3 Months [...] drink first t manav in the morning (EYE-LOOM OPERATOR) to steady your nerves or to [...] Health System st Contact Info) Description 02/02/2025 9:30 AM EDT Appointment [facility] Interventional Radiology [address] [place] [address] 02/10/2025 8:30 AM EDT Clinical Support [facility] Hematology/BMT and Cellular Therapy Program [address] [address] 02/10/2025 9:00 AM EDT Office Visit [facility] Hematology/BMT and Cellular Therapy Program [address] [address] Elaina Boss, ARAM 800 [facility] [address] [place] [phone] 02/10/2025 10:30 AM EDT Appointment [facility]fusion [facility] 1 [address] [place] [address] 02/11/2025 2:00 PM EDT Appointment [facility]fusion [facility] 1 [address] [place] [address] 02/12/2025 2:00 PM EDT Appointment [facility]fusion [facility] 1 [address] [place] [address] 02/13/2025 2:00 PM EDT Appointment [facility]fusion [facility] 1 [address] [place] [address] 02/14/2025 2:00 PM EDT Appointment [facility]fusion [facility] 1 [address] [place] [address] 03/10/2025 8:30 AM EDT Clinical Support [facility] Hematology/BMT and Cellular Therapy Program [address] [facility], [facility] [place] [address] 03/10/2025 9:00 AM EDT Office Visit [facility] Hematology/BMT and Cellular Therapy Program [address] [facility], [facility] [place] [address] Isaura Wynn, FOOD AND NUTRITION SUPERVISOR 800 [facility] [address] [place] [address] 03/10/2025 11:20 AM EDT Office Visit [facility] Respiratory [address] [facility], 2nd [place] [phone] Elsa Razo, FOOD AND NUTRITION SUPERVISOR [address] [place] [phone] Health Maintenance Due Date Last Done Comments [...] 2015 [facility]Y-Abdominal Aortic Aneurysm (AAA) Screening 2020 [id number] Vaccine (3 - Pfizer risk series) 11/11/2020 [...] this topic Medical Devices Implanted Type [employer] Device Identifier Shelf Expiration Date Model / Serial / Lot Port Clearvue Power 8fr - [id number] Implanted:Qty: 1 on 12/01/2024 by [facility][id number] / / Procedures Procedure Name Priority Date/Time [...] the time period is included. Product Code [id number] CH BLOO D BANK Dispense Status Transfused BLOOD BANK Blood Expiration Date [id number] BLOOD BANK Unit Number [id number] B LOOD BANK Product Blood Type 9500 BLOOD BANK Blood Type O- BLOOD BANK Crossmatch Compatible BLOOD BANK Other us Kayli CHIU BLOOD BANK PRODUCT ORDER VIKAS Final Result BLOOD BANK [address] [place] [address], * (ABNORMAL) CBC and differential (01/17/2025 8:03 AM EDT) Only the most recent of17 resultswithin the time period is included. WBC Count 0.54(LL) 3.70 - 10.30 10*3/uL LAB HEMATOLOGY METHOD 01/17/2025 9:41 AM EDT [facility] RBC Count 2.55(L) 4.60 - 6.10 10*6/uL LAB HEMATOLOGY METHOD 01/17/2025 9:41 AM EDT [facility] HGB 7.6(L) 13.7 - 17.5 g/dL LAB HEMATOLOGY METHOD 01/17/2025 9:41 AM EDT [facility] HCT 21.6(L) 40.0 - 51.0 % LAB HEMATOLOGY METHOD 01/17/2025 9:41 AM EDT [facility] Platelet Count 23(L) 155 - 369 10*3/uL LAB HEMATOLOGY METHOD 01/17/2025 9:41 AM EDT [facility] MCV 85 79 - 98 fL LAB HEMATOLOGY METHOD 01/17/2025 9:41 AM EDT [facility] MCH 29.8 26.0 - 32.0 pg LAB HEMATOLOGY METHOD 01/17/2025 9:41 AM EDT [facility] MCHC 35.2 30.7 - 35.5 g/dL LAB HEMATOLOGY METHOD 01/17/2025 9:41 AM EDT [facility] RDW 14.2 11.5 - 14.5 % LAB HEMATOLOGY METHOD 01/17/2025 9:41 AM EDT [facility] MPV 9.0 8.8 - 12.5 fL LAB HEMATOLOGY METHOD 01/17/2025 9:41 AM EDT [facility] nRBC 0.0 <=0.0 per 100 WBCs LAB HEMATOLOGY METHOD 01/17/2025 9:41 AM EDT [facility] Differential Type Automated LAB HEMATOLOGY METHOD 01/17/2025 9:41 AM EDT [facility] Neutrophils % 7 % LAB HEMATOLOGY METHOD 01/17/2025 9:41 AM EDT [facility] Lymphocytes % 91 % LAB HEMATOLOGY METHOD 01/17/2025 9:41 AM EDT [facility] Monocytes % 2 % LAB HEMATOLOGY METHOD 01/17/2025 9:41 AM EDT [facility] Eosinophils % 0 % LAB HEMATOLOGY METHOD 01/17/2025 9:41 AM EDT [facility] Basophils % 0 % LAB HEMATOLOGY METHOD 01/17/2025 9:41 AM EDT [facility] Immature Granulocytes % 0 % LAB HEMATOLOGY METHOD 01/17/2025 9:41 AM EDT [facility] Neutrophils Absolute 0.04(LL) 1.60 - 6.10 10*3/uL LAB HEMATOLOGY METHOD 01/17/2025 9:41 AM EDT [facility] Lymphocytes Absolute 0.49(L) 1.20 - 3.90 10*3/uL LAB HEMATOLOGY METHOD 01/17/2025 9:41 AM EDT [facility] Monocytes Absolute 0.01(L) 0.30 - 0.90 10*3/uL LAB HEMATOLOGY METHOD 01/17/2025 9:41 AM EDT [facility] Eosinophils Absolute 0.00 0.00 - 0.50 10*3/uL LAB HEMATOLOGY METHOD 01/17/2025 9:41 AM EDT [facility] Basophils Absolute 0.00 0.00 - 0.10 10*3/uL LAB HEMATOLOGY METHOD 01/17/2025 9:41 AM EDT [facility] Immature Granulocytes Absolute 0.00 0.00 - 0.06 10*3/uL LAB HEMATOLOGY METHOD 01/17/2025 9:41 AM EDT [facility] Blood Blood sample taken from central line / Unknown (Port) Long-term Catheter / Unknown 01/17/2025 8:03 AM EDT 01/17/2025 8:07 AM EDT Narrative [facility] - 01/17/2025 9:41 AM EDT Therapeutic decision making should be based on absolute values, rather than percentages. Virgen Vargas MD LAB BLOOD ORDERABLES Final Re sult Performing Organization Address [facility] Co de Phone Number [facility] [address] [place] [address] * Type and Screen (01/16/2025 9:54 AM [...] ORDERABLE S Final Result Performing Organization Address [facility] de Phone Number BLOOD BANK [address] [place] [address] * (ABNORMAL) Platelet count (01/16/2025 8:12 AM EDT) Only the most recent of11 resultswithin the time period is included. Platelet Count 39(L) 155 - 369 10*3/uL LAB HEMATOLOGY METHOD 01/16/2025 8:38 AM EDT [facility] Blood Blood sample taken from central line / Unknown Venipuncture / Unknown 01/16/2025 8:12 AM EDT 01/16/2025 8:27 AM EDT us Virgen Vargas MD LAB BLOOD ORDERABLES Final Re sult Performing Organization Address City/[facility]/ZIP Co de Phone Number [facility] [address] [place] [address] * (ABNORMAL) CBC W/O Differential (01/16/2025 8:12 AM EDT) Only the most recent of2 resultswithin the time period is included. WBC Count 0.49(LL) 3.70 - 10.30 10*3/uL LAB HEMATOLOGY METHOD 01/16/2025 11:30 AM EDT [facility] RBC Count 2.65(L) 4.60 - 6.10 10*6/uL LAB HEMATOLOGY METHOD 01/16/2025 11:30 AM EDT [facility] HGB 8.0(L) 13.7 - 17.5 g/dL LAB HEMATOLOGY METHOD 01/16/2025 11:30 AM EDT [facility] HCT 23.0(L) 40.0 - 51.0 % LAB HEMATOLOGY METHOD 01/16/2025 11:30 AM EDT [facility] Platelet Count 39(L) 155 - 369 10*3/uL LAB HEMATOLOGY METHOD 01/16/2025 11:30 AM EDT [facility] MCV 87 79 - 98 fL LAB HEMATOLOGY METHOD 01/16/2025 11:30 AM EDT [facility] MCH 30.2 26.0 - 32.0 pg LAB HEMATOLOGY METHOD 01/16/2025 11:30 AM EDT [facility] MCHC 34.8 30.7 - 35.5 g/dL LAB HEMATOLOGY METHOD 01/16/2025 11:30 AM EDT [facility] RDW 14.5 11.5 - 14.5 % LAB HEMATOLOGY METHOD 01/16/2025 11:30 AM EDT [facility] MPV 10.2 8.8 - 12.5 fL LAB HEMATOLOGY METHOD 01/16/2025 11:30 AM EDT [facility] nRBC 0.0 <=0.0 per 100 WBCs LAB HEMATOLOGY METHOD 01/16/2025 11:30 AM EDT [facility] Blood Blood sample taken from central line / Unknown Venipuncture / Unknown 01/16/2025 8:12 AM EDT 01/16/2025 8:27 AM EDT Virgen Vargas MD LAB BLOOD ORDERABLES Final Re sult [facility] [address] [place] [address] * Transfuse platelets (01/15/2025 10:55 AM EDT) [...] ORDERAB LES Final Result BLOOD BANK [address] [place] [address], [place] * Prepare Leukocyte Reduced Platelets: 1 Units (01/15/2025 9:55 AM EDT) Only the most recent of13 resultswithin the time period is included. Product Code [id number] BLOO D BANK Dispense Status Transfused BLOOD BANK Blood Expiration Date [id number] BLOOD BANK Unit Number [id number] CH B LOOD BANK Product Blood Type 6200 BLOOD BANK Blood Type A+ BLOOD BANK Blood Venous blood specimen / Unknown Kayli Ospina NE BLOOD BANK PRODUCT ORDER VIKAS Final Result Performing Organization Address City/[facility]/ZIP Co de Phone Number BLOOD BANK [address] * (ABNORMAL) Uric acid (01/15/2025 8:17 AM EDT) Only the most recent of3 resultswithin the time period is included. Uric Acid, Plasma 3.0(L) 3.7 - 8.0 mg/dL 01/15/2025 9:19 AM EDT [facility] Blood Blood sample taken from central line / Unknown (Port) Long-term Catheter / Unknown 01/15/2025 8:17 AM EDT 01/15/2025 8:47 AM EDT Virgen Vargas MD LAB BLOOD ORDERABLES Final Re sult Performing Organization Address City/[facility]/ZIP Co de Phone Number [facility] [address] [place] [address] * Phosphorus (01/15/2025 8:17 AM EDT) Only the most recent of3 resultswithin the time period is included. Phosphorus, Plasma 3.1 2.5 - 4.5 mg/dL 01/15/2025 9:19 AM EDT [facility] Blood Blood sample taken from central line / Unknown (Port) Long-term Catheter / Unknown 01/15/2025 8:17 AM EDT 01/15/2025 8:47 AM EDT Virgen Vargas MD LAB BLOOD ORDERABLES Final Re sult Performing Organization Address [facility] Co de Phone Number [facility] [address] [place] [address] * Magnesium (01/15/2025 8:17 AM EDT) Only the most recent of3 resultswithin the time period is included. Magnesium, Plasma 2.2 1.9 - 2.4 mg/dL 01/15/2025 9:19 AM EDT [facility] Blood Blood sample taken from central line / Unknown (Port) Long-term Catheter / Unknown 01/15/2025 8:17 AM EDT 01/15/2025 8:47 AM EDT Virgen Vargas MD LAB BLOOD ORDERABLES Final Re sult Performing Organization Address [facility] de Phone Number [facility] [address] [place] [address] * LACTATE DEHYDROGENASE (01/15/2025 8:17 AM EDT) Only the most recent of3 resultswithin the time period is included. LDH, Plasma 192 116 - 250 U/L 01/15/2025 9:19 AM EDT [facility] Blood Blood sample taken from central line / Unknown (Port) Long-term Catheter / Unknown 01/15/2025 8:17 AM EDT 01/15/2025 8:47 AM EDT Virgen Vargas MD LAB BLOOD ORDERABLES Final Re sult Performing Organization Address [facility] Co de Phone Number [facility] [address] [place] [address] * (ABNORMAL) BASIC METABOLIC PANEL (01/15/2025 8:17 AM EDT) Only the most recent of2 resultswithin the time period is included. Glucose, Plasma 96 74 - 99 mg/dL 01/15/2025 9:19 AM EDT [facility] BUN, Plasma 12 8 - 23 mg/dL 01/15/2025 9:19 AM EDT [facility] Creatinine, Plasma 0.71 0.70 - 1.20 mg/dL 01/15/2025 9:19 AM EDT [facility] BUN/Creatinine Ratio 17 01/15/2025 9:19 AM EDT [facility] Sodium, Plasma 139 136 - 145 mmol/L 01/15/2025 9:19 AM EDT [facility] Potassium, Plasma 4.1 3.6 - 4.9 mmol/L 01/15/2025 9:19 AM EDT [facility] Chloride, Plasma 108(H) 97 - 107 mmol/L 01/15/2025 9:19 AM EDT [facility] CO2, Plasma 21(L) 22 - 29 mmol/L 01/15/2025 9:19 AM EDT [facility] Anion Gap 10 6 - 16 mmol/L 01/15/2025 9:19 AM EDT [facility] Total Calcium, Plasma 8.9 8.9 - 10.2 mg/dL 01/15/2025 9:19 AM EDT [facility] eGFRcr 99.3 mL/min/1.7 3m*2 01/15/2025 9:19 AM EDT [facility] Comment:Reported eGFRcr in m L/min/1.73m2 is based the CKD-EPI 2020 equation that does not use a race coefficient. Blood Blood sample taken from central line / Unknown (Port) Long-term Catheter / Unknown 01/15/2025 8:17 AM EDT 01/15/2025 8:47 AM EDT us Virgen Vargas MD LAB BLOOD ORDERABLES Final Re sult [facility] [address] [place] [address] * (ABNORMAL) Comprehensive Metabolic Panel, Plasma (01/13/2025 10:02 AM EDT) Only the most recent of13 resultswithin the time period is included. Glucose, Plasma 104(H) 74 - 99 mg/dL 01/13/2025 10:56 AM EDT [facility] BUN, Plasma 9 8 - 23 mg/dL 01/13/2025 10:56 AM EDT [facility] Creatinine, Plasma 0.72 0.70 - 1.20 mg/dL 01/13/2025 10:56 AM EDT [facility] BUN/Creatinine Ratio 13 01/13/2025 10:56 AM EDT [facility] Sodium, Plasma 140 136 - 145 mmol/L 01/13/2025 10:56 AM EDT [facility] Potassium, Plasma 4.5 3.6 - 4.9 mmol/L 01/13/2025 10:56 AM EDT [facility] Chloride, Plasma 109(H) 97 - 107 mmol/L 01/13/2025 10:56 AM EDT [facility] CO2, Plasma 21(L) 22 - 29 mmol/L 01/13/2025 10:56 AM EDT [facility] Anion Gap 10 6 - 16 mmol/L 01/13/2025 10:56 AM EDT [facility] Total Calcium, Plasma 8.9 8.9 - 10.2 mg/dL 01/13/2025 10:56 AM EDT [facility] Total Protein 6.9 6.3 - 7.9 g/dL 01/13/2025 10:56 AM EDT [facility] Albumin, Plasma 4.1 3.5 - 5.2 g/dL 01/13/2025 10:56 AM EDT [facility] AST, Plasma 84(H) 10 - 50 U/L 01/13/2025 10:56 AM EDT [facility] ALT, Plasma 95(H) 10 - 50 U/L 01/13/2025 10:56 AM EDT [facility] Alkaline Phosphatase, Plasma 83 40 - 115 U/L 01/13/2025 10:56 AM EDT [facility] Total Bilirubin, Plasma 0.7 0.2 - 1.1 mg/dL 01/13/2025 10:56 AM EDT [facility] eGFRcr 98.9 mL/min/1.7 3m*2 01/13/2025 10:56 AM EDT [facility] Comment:Reported eGFRcr in m L/min/1.73m2 is based the CKD-EPI 2020 equation that does not use a race coefficient. Blood Blood sample taken from central line / Unknown (Port) Long-term Catheter / Unknown 01/13/2025 10:02 AM EDT 01/13/2025 10:24 AM EDT us Isaura Wynn APRN LAB BLOOD ORDERABLES Final Res ult [facility] [address] [place] [address] * BIOPSY BONE MARROW (01/06/2025 10:00 AM EDT) Narrative Kierra Novak APRN - 01/06/2025 10:00 AM EDT Kierra Novak APRN 01/06/2025 10:24 AM Biopsy bone marrow Date/Time: 01/06/2025 10:00 AM Performed by: Kierra Novak APRN Authorized by: Kierra Novak APRN Consent: Consent obtained: Written Consent given by: Patient Risks, benefits, and alternatives were discussed: yes Risks discussed: Bleeding, infection and pain [place] protocol: Procedure explained and questions answered to [...] Clinical Indication AML 01/07/2025 10:18 AM EDT [facility] Flow Cytometry Interpretation APPROXIMATELY 16% MYELOID BLASTS; EXPRESSING CD34, CD117, CD13, CD33, HLA-DR, PARTIAL CD7, PARTIAL CD123, VARIABLE CD38, AND MODERATE CD45, SEE COMMENT, BONE MARROW ASPIRATE. 01/07/2025 10:18 AM EDT [facility] Comments Specimen viability is 79%. [...] disease. Final interpretation requires morphologic correlation (BM [id number]). The following antibodies were used in this analysis: CD45, CD2, CD3, CD4, CD5, CD7, CD8, CD10, CD13, CD14, CD15, CD16, CD19, CD20, CD33, CD34, CD38, CD56, CD117, HLA-DR, kappa surface light chains, lambda surface light chains, CD123 01/07/2025 10:18 AM [facility] Disclaimer This test was developed and [...] complexity clinical laboratory testing. 01/07/2025 10:18 AM T [facility][1] Pathologist Signature Reviewed by: Tessie Peralta MD 01/07/2025 10:18 AM [facility] MRD Indicated Test Not Indicated 10:18 AM [facility] Bone Marrow Specimen from bone marrow obtained by aspiration / Unknown Non-blood Collection / Unknown 01/06/2025 9:48 AM EDT 01/06/2025 11:20 AM EDT us Virgen Vargas MD LAB FLOW CYTOMETRY ORDERABLES Final Result [facility] [address] [place] [address] * Bone marrow exam (01/06/2025 9:48 AM EDT) Only the most recent of3 resultswithin the time period is included. Case Report Bone Marrow Case: [id number] Authorizing Provider: Virgen Vargas MD Collected: 01/06/2025 0948 Ordering Location: [facility] Hematology/BMT and Received: 01/06/2025 1108 Cellular Therapy Program Pathologist: Tessie Peralta MD Specimens: A) - Bone Marrow Aspirate, left B) - Bone Marrow Biopsy, left C) - Peripheral Blood for Bone Marrow 6:13 PM EDT [facility] Final Diagnosis BONE MARROW, LEFT POSTERIOR ILIAC CREST, (PERIPHERAL SMEAR, ASPIRATE SMEARS, AND CORE BIOPSY): - MILDLY HYPOCELLULAR BONE MARROW WITH ERYTHROID HYPERPLASIA, MARKEDLY REDUCED GRANULOPOIESIS, PERSISTENT DYSPOIESIS AND 10% BLASTS, SEE COMMENT. 6:13 PM EDT [facility] at 1813 EDT Comment The marrow cellularity is composed of erythroid cells with markedly reduced granulopoiesis and decreased megakaryocytes. Persistent trilineage dyspoiesis is noted. The blast percentages are higher by flow cytometry analysis as the majority of marrow cellularity consists of erythroid precursors that are removed by flow cytometry. 6:13 PM EDT [facility] Clinical Information AML 12/22 6:13 PM EDT [facility] CBC and [...] blasts are identified. 5 6:13 PM EDT [facility] Bone Marrow Differential BONE MARROW DIFFERENTIAL: 400 cells Normal Patient Neutrophils 15-50 0 Metamyelocytes 4-19 1 Myelocytes 1-18 2 Promyelocytes 1-8 1 Blasts 0-2 10 Monocytes 0-5 0 Erythroid 16-38 73 Lymphocytes 3-24 4 Eosinophils 0-6 1 Basophils 0-2 0 Plasma cells 0-4 8 Other 5 6:13 PM EDT [facility][1] Bone Marrow Aspirate and Biopsy Core biopsy [...] trabeculae are unremarkable. 5 6:13 PM EDT [facility][1] Special and Immunohistochemical Stains Immunohistochemica l stains [...] at the [facility], [address] [place] [address]. All tests reported here, except those addressing [...] negativity on decalcified specimens. 6:13 PM T [facility] Flow Cytometry Interpretation APPROXIMATELY 16% MYELOID BLASTS; EXPRESSING CD34, CD117, CD13, CD33, HLA-DR, PARTIAL CD7, PARTIAL CD123, VARIABLE CD38, AND MODERATE CD45, SEE COMMENT, BONE MARROW ASPIRATE ([id number]) 6:13 PM T [facility] Gross Description B. LEFT A single specimen is received in formalin labeled bone marrow biopsy left posterior iliac crest and consists of 2 piece(s) of tissue measuring 0.8/0.2 cm in length 0.2 cm in diameter. The specimen is submitted in to Histology for decalcification and routine processing. Cold Time: <1m 6:13 PM [facility] Note: A resident was involved in the service. I attest I examined the relevant preparations for the specimens and confirmed the diagnosis or interpretation. 6:13 PM [facility] Bone Marrow Peripheral [...] ORDERABLES Terri l Result Performing Organization Address City/[facility]/[place] [address] * Group A Streptococcus by PCR (12/16/2024 9:40 AM EDT) Group A Streptococcus PCR Result Not Detected Not Detected 12/16/2024 11:53 AM EDT [facility][1] Swab Pharyngeal structure / Unknown Non-blood Collection / Unknown 12/16/2024 9:40 AM EDT 12/16/2024 10:10 AM EDT Isaura Wynn APRN LAB MICROBIOLOGY - GENERAL ORD ERABLES Final Result Performing Organization Address City/[facility] [place] [address] * Streptococcus Culture (12/16/2024 9:40 AM EDT) Culture Reading Strep A No Streptococcus pyogenes or Streptococcus dysgalactiae isolated 12/17/2024 2:28 PM EDT [facility][1] Swab Pharyngeal structure / Unknown Non-blood Collection / Unknown 12/16/2024 9:40 AM EDT 12/16/2024 10:10 AM EDT Isaura Wynn APRN LAB MICROBIOLOGY - GENERAL ORD ERABLES Final Result Performing Organization Address City/[facility] [place] [address] * Morphology (12/11/2024 8:38 AM EDT) Only the most recent of4 resultswithin the time period is included. Elliptocytes/ Ovalocytes Present LAB HEMATOLOGY METHOD 12/11/2024 10:53 AM EDT [facility] RBC Morphology Slide Reviewed LAB HEMATOLOGY METHOD 12/11/2024 10:53 AM EDT [facility] Platelet Estimate Platelet smear estimate consistent with automated count LAB HEMATOLOGY METHOD 12/11/2024 10:53 AM EDT [facility] Blood Venous blood specimen / Unknown Venipuncture / Unknown 12/11/2024 8:38 AM EDT 12/11/2024 8:50 AM EDT us Virgen Vargas MD LAB BLOOD ORDERABLES Final Re sult [facility] [address] [place] [address] * (ABNORMAL) Manual Differential (12/11/2024 8:38 AM [...] [facility] Eosinophils % 0 % LAB HEMATOLOGY METHOD 12/11/2024 10:53 AM EDT [facility] Basophils % 0 % LAB HEMATOLOGY METHOD 12/11/2024 10:53 AM EDT [facility] Blasts Absolute 0.01 10*3/UL LAB HEMATOLOGY METHOD 12/11/2024 10:53 AM EDT [facility] Promyelocytes Absolute 0.00 10*3/uL LAB HEMATOLOGY METHOD 12/11/2024 10:53 AM EDT [facility] Myelocytes Absolute 0.00 10*3/uL LAB HEMATOLOGY METHOD 12/11/2024 10:53 AM EDT [facility] Metamyelocytes Absolute 0.00 10*3/uL LAB HEMATOLOGY METHOD 12/11/2024 10:53 AM EDT [facility] Neutrophils Absolute 0.02(LL) 1.60 - 6.10 10*3/uL LAB HEMATOLOGY METHOD 12/11/2024 10:53 AM EDT [facility] Lymphocytes Absolute 0.55(L) 1.20 - 3.90 10*3/uL LAB HEMATOLOGY METHOD 12/11/2024 10:53 AM EDT [facility] Reactive Lymphocytes Absolute 0.02 10*3/uL LAB HEMATOLOGY METHOD 12/11/2024 10:53 AM EDT [facility] Monocytes Absolute 0.01(L) 0.30 - 0.90 10*3/uL LAB HEMATOLOGY METHOD 12/11/2024 10:53 AM EDT [facility] Eosinophils Absolute 0.00 0.00 - 0.50 [...] [facility] [address] [place] [address] * Peripheral blood smear, pathologist interpretation (12/11/2024 8:38 AM EDT) Only the most recent of3 resultswithin the time period is included. Clinical Diagnosis, Peripheral Smear History of acute myeloid leukemia (recent bone marrow dated 12/09/2024 with 14% blasts) LAB HEMATOLOGY METHOD 12/11/2024 4:46 PM EDT [facility] Interpretation , Peripheral Smear Marked leukopenia with neutropenia and 1% circulating blasts. Dysplastic neutrophils (hypogranular) are noted. Moderate anemia and marked thrombocytopen ia. 12/11/2024 4:46 PM EDT [facility] Pathologist Signature, Peripheral Smear 12/11/2024 4:46 PM EDT [facility] Comment:Reviewed by: Omar Peralta MD Blood Venous blood specimen / Unknown Venipuncture / Unknown 12/11/2024 8:38 AM EDT 12/11/2024 8:50 AM EDT us Virgen Vargas MD LAB PATHOLOGY ORDERABLES Terri marco Result [facility] [address] [place] [address] * Chromosome Karyotype, Oncology (12/09/2024 10:15 AM EDT) Only the most recent of2 resultswithin the time period is included. Specimen Type Bone Marrow 12/16/2024 5:59 PM EDT [facility] Clinical Indication Acute Myeloid Leukemia 12/16/2024 5:59 PM EDT [facility] Specimen Adequacy Adequate 025 5:59 PM EDT [facility] Chromosome Analysis Result Giemsa-banded metaphase cells from unstimulated bone marrow cultures showed the following chromosome pattern: 43~45,X,-Y,t(4;1 4)(q21;q32),add( 5)(q13),add(16)( q11.2),-17,add(2 0)(q11.2)[cp13]/ 46,XY[7] 12/16/2024 5:59 PM EDT [facility] Interpretation Abnormal male chromosome analysis. [...] were observed on this patient's previous specimen [id number] and indicate persistent disease. Clinical correlation is recommended. Note: Per [employer] (CAP) requirement additional karyotypes were performed and charged due to the presence of clonal abnormalities. # cells counted = 20 # cells analyzed = 20 # cells karyotyped = 3 Band resolution: 400 12/16/2024 5:59 PM EDT [facility] Pathologist Signature Reviewed by: Mesfin Rae 12/16/2024 5:59 PM EDT [facility] Bone Marrow Non-blood Collection / Unknown 12/09/2024 10:15 AM EDT 12/09/2024 12:48 PM EDT Virgen Vargas MD LAB CYTOGENETICS ORDERABLES F inal Result Performing Organization Address City/State/[facility] Co de Phone Number [facility] [address] [place] [address] * BIOPSY BONE MARROW (12/09/2024 10:00 AM EDT) Narrative Kierra Novak APRN - 12/09/2024 10:00 AM EDT Kierra Novak APRN 12/09/2024 12:08 PM Biopsy bone marrow Date/Time: 12/09/2024 10:00 AM Performed by: Kierra Novak APRN Authorized by: Kierra Novak APRN Consent: Consent obtained: Written Consent given by: Patient Risks, benefits, and alternatives were discussed: yes Risks discussed: Bleeding, infection and pain [place] protocol: Procedure explained and questions answered to [...] well, no immediate complications us Kierra Novak FOOD AND NUTRITION SUPERVISOR IN CLINIC/BEDSIDE ORDERAB LES Final Result [...] for port placement. New AML, starting chemotherapy. Flight Engineer Instructor: Mckinley Lee MD Secondary Surgery Scheduler: Dr. David Holt Rad Dose: 6 mGy [...] was placed supine on the fluoro table. Manager Metal ultrasonography revealed the vein to be compressible [...] with no evidence of complication. Device: 6 Maori port catheter cut to length of 25 cm. COMPARISON: None. FINDINGS: Patent R IJV COMPLICATION: No. Procedure Note Mckinley Lee MD - 12/02/2024 CLINICAL INDICATION: 69M here for port placement. New AML, starting chemotherapy. Flight Engineer Instructor: Mckinley Lee MD Secondary Surgery Scheduler: Dr. David Holt Rad Dose: 6 mGy [...] patient was placed supine on the fluoro table.Manager Metal ultrasonography revealed the vein to be compressible [...] well with no evidence ofcomplication. Device: 6 Maori port catheter cut to length of 25 [...] MD on 12/02/2024 7:02 AM Isaura Wynn FOOD AND NUTRITION SUPERVISOR IMG IR PROCEDURES Final Result * (ABNORMAL) WBC Differential (12/01/2024 9:39 AM EDT) Differential Type Automated LAB HEMATOLOGY METHOD 12/01/2024 11:33 AM EDT [facility] Neutrophils % 9 % LAB HEMATOLOGY METHOD 12/01/2024 11:33 AM EDT [facility] Lymphocytes % 84 % LAB HEMATOLOGY METHOD 12/01/2024 11:33 AM EDT [facility] Monocytes % 6 % LAB HEMATOLOGY METHOD 12/01/2024 11:33 AM EDT [facility] Eosinophils % 1 % LAB HEMATOLOGY METHOD 12/01/2024 11:33 AM EDT [facility] Basophils % 0 % LAB HEMATOLOGY METHOD 12/01/2024 11:33 AM EDT [facility] Immature Granulocytes % 0 % LAB HEMATOLOGY METHOD 12/01/2024 11:33 AM EDT [facility] Immature Granulocytes Absolute 0.00 0.00 - 0.06 10*3/uL LAB HEMATOLOGY METHOD 12/01/2024 11:33 AM EDT [facility] Neutrophils Absolute 0.06(LL) 1.60 - 6.10 10*3/uL LAB HEMATOLOGY METHOD 12/01/2024 11:33 AM EDT [facility] Lymphocytes Absolute 0.59(L) 1.20 - 3.90 10*3/uL LAB HEMATOLOGY METHOD 12/01/2024 11:33 AM EDT [facility] Monocytes Absolute 0.04(L) 0.30 - 0.90 10*3/uL LAB HEMATOLOGY METHOD 12/01/2024 11:33 AM EDT [facility] Basophils Absolute 0.00 0.00 - 0.10 10*3/uL LAB HEMATOLOGY METHOD 12/01/2024 11:33 AM EDT [facility] Eosinophils Absolute 0.01 0.00 - 0.50 10*3/uL LAB HEMATOLOGY METHOD 12/01/2024 11:33 AM EDT [facility] Blood Venous blood specimen / Unknown Venipuncture / Unknown 12/01/2024 9:39 AM EDT 12/01/2024 9:56 AM EDT us Virgen Vargas MD LAB BLOOD ORDERABLES Final Re sult [facility] [address] [place] [address] * Protime-INR (11/26/2024 10:51 AM EDT) Prothrombin [...] ME INR 2.5 to 3.5 us Latoya Nunez FOOD AND NUTRITION SUPERVISOR LAB BLOOD ORDERABLES Final R esult Performing Organization Address City/[facility] Co de Phone Number [facility] [address] [place] [address] * BIOPSY BONE MARROW (11/10/2024 2:00 PM [...] - 899 pg/mL 11/05/2024 11:49 AM EDT [facility][1] Blood Venous blood specimen / Unknown Venipuncture / Unknown 11/05/2024 11:01 AM EDT 11/05/2024 11:21 AM EDT us Elsa Razo FOOD AND NUTRITION SUPERVISOR LAB BLOOD ORDERABLES Fin al Result Performing Organization Address [facility] [place] [address] * ECG Adult (Now - Performed in your clinic) (11/05/2024 10:10 AM EDT) Only the most recent of2 resultswithin the time period is included. EKG DIAGNOSIS CLASS Normal MUSE ECG Ventricular Rate 71 BPM MUSE ECG Atrial Rate 71 BPM MUSE ECG LA Interval 154 ms MUSE ECG QRSD Interval 80 ms MUSE ECG QT Interval 404 ms MUSE ECG QTC Interval 439 ms MUSE ECG P [place] 45 degrees MUSE ECG R [place] 15 degrees MUSE ECG T Wave [place] 42 degrees MUSE ECG Diagnosis Normal sinus rhythm MUSE ECG Diagnosis Normal ECG MUSE ECG Diagnosis MUSE ECG Diagnosis Confirmed by Orestes Stone ([id number]) on 11/05/2024 10:19:58 AM MUSE ECG 11/05/2024 10:1 0 AM EDT 11/05/2024 10:19 AM EDT us Elsa Marquis Razo FOOD AND NUTRITION SUPERVISOR ECG ORDERABLES Final Re sult MUSE ECG * Urine Cross Panel (11/03/2024 4:05 PM EDT) Extra Reflex urine culture not indicated 11/04/2024 2:02 AM EDT [facility] Comment: Previously prelim verified as [...] MD LAB URINE ORDERABLES Final R esult [facility] [address] [place] [facility] [place] [address] * (ABNORMAL) Urinalysis with reflex microscopic (Culture NOT Included) (11/03/2024 4:05 PM EDT) Color, Urine Yellow LAB URINALYSIS - AUTOMATED METHOD 11/03/2024 4:23 PM EDT [facility] Clarity, Urine Clear LAB URINALYSIS - AUTOMATED METHOD 11/03/2024 4:23 PM EDT [facility] Spec [place], Urine 1.018 1.005 - 1.030 LAB URINALYSIS - AUTOMATED METHOD 11/03/2024 4:23 PM EDT [facility] pH, Urine 6.5 5.0 - 8.0 LAB URINALYSIS - AUTOMATED METHOD 11/03/2024 4:23 PM EDT [facility] Protein, Urine 30(A) Negative mg/dL LAB URINALYSIS - AUTOMATED METHOD 11/03/2024 4:23 PM EDT [facility] Glucose, Urine Negative Negative mg/dL LAB URINALYSIS - AUTOMATED METHOD 11/03/2024 4:23 PM EDT [facility] Ketones, Urine Negative Negative mg/dL LAB URINALYSIS - AUTOMATED METHOD 11/03/2024 4:23 PM EDT [facility] Blood, Urine Negative Negative LAB URINALYSIS - AUTOMATED METHOD 11/03/2024 4:23 PM EDT [facility] Bilirubin, Urine Negative Negative LAB URINALYSIS - AUTOMATED METHOD 11/03/2024 4:23 PM EDT [facility] Urobilinogen, Urine 2.0(A) 0.2 to 1.0 mg/dL LAB URINALYSIS - AUTOMATED METHOD 11/03/2024 4:23 PM EDT [facility] Leukocytes, Urine Negative Negative LAB URINALYSIS - AUTOMATED METHOD 11/03/2024 4:23 PM EDT [facility] Nitrite, Urine Negative Negative LAB URINALYSIS - AUTOMATED METHOD 11/03/2024 4:23 PM EDT [facility] Urine Urine specimen obtained by clean catch procedure / Unknown Non-blood Collection / Unknown 11/03/2024 4:05 PM EDT 11/03/2024 4:17 PM EDT us Tati Fam MD LAB URINE ORDERABLES Final R esult [facility] [address] [place] [address] * CT Head wo IV Contrast (11/03/2024 [...] at day 5 11/08/2024 4:01 PM EDT [facility] Blood Structure of antecubital vein / Unknown Venipuncture / Unknown 11/03/2024 3:24 PM EDT 11/03/2024 3:47 PM EDT Narrative [facility] - 11/08/2024 4:01 PM EDT Low blood volume submitted, results may be compromised us Tati Fam MD LAB MICROBIOLOGY - GENERAL O RDERABLES Final Result [facility] [address] [place] [address] * XR Chest 1 View (11/03/2024 3:00 [...] for all analytes 11/03/2024 5:17 PM EDT [facility][1] Swab Nasopharyngeal structure / Unknown Non-blood Collection / Unknown 11/03/2024 2:59 PM EDT 11/03/2024 3:17 PM EDT Narrative [facility] - 11/03/2024 5:17 PM EDT [...] Respiratory PCR Panel is performed using the [employer] ePlex instrument. This test is FDA approved for use with Nasopharyngeal swabs only. This test is used for clinical purposes. It should not be regarded as investigational or for research. [facility] is certified under the Clinical Laboratory Improvement Amendments of 1988 (CLIA-88) as qualified to perform high complexity clinical laboratory testing. us Tati Fam MD LAB MICROBIOLOGY - GENERAL O RDERABLES Final Result [facility] [address] [place] [address] * Lactic acid, venous (11/03/2024 2:25 PM EDT) Lactate, Venous, Whole Blood 0.9 0.5 - 2.2 mmol/L LAB HEMATOLOGY METHOD 11/03/2024 2:38 PM EDT [facility] Blood Venous blood specimen / Unknown Venipuncture / Unknown 11/03/2024 2:25 PM EDT 11/03/2024 2:36 PM EDT us Tati Fam MD LAB BLOOD ORDERABLES Final R esult [facility] [address] [place] [address] * Hepatitis C Antibody w/Reflex to HCV Quant PCR (09/29/2024 12:51 PM EDT) Pathologist [facility] Hepatitis C Antibody Negative Negative 09/29/2024 2:06 PM EDT [facility] Blood Venous blood specimen / Unknown Venipuncture / Unknown 09/29/2024 12:51 PM EDT 09/29/2024 1:22 PM EDT us Virgen Vargas MD LAB BLOOD [place]AB[place] [address] from Last 3 Months or Most Recently Relevant to Health Maintenance Insurance [facility] MEDICARE Care Teams College Recruiter Relationship Specialty Start Date End Date Zhao Harris MD [address] [place] [place] [id number] PCP - General 12/03/20
--- OUTSIDE RECORDS SUMMARY | 2025-01-30 13:18 | XMS_ITS | Encounter Summary ---
Author Organization [facility] Address [address] [place] [address] Care Team Providers Care Product Evangelist Name Role Phone Zhao Harris MD Primary Care Provider [phone] Encounter Details Date Type Department Care Team [...] first t manav in the morning (EYE-SEARCH PLANNER) to steady your nerves or to [...] ([facility] Contact Info) Description 02/02/2025 9:30 AM EDT Appointment [facility] A Interventional Radiology [address] [place] [address] 02/10/2025 8:30 AM EDT Clinical Support [facility] CC Hematology/BMT and Cellular Therapy Program [address] [place] [address] [place] [address] 02/10/2025 9:00 AM EDT Office Visit [facility] Hematology/BMT and Cellular Therapy Program [address] [place] [address] Elaina Boss, PA 800 [facility] [address] [place] [address] 02/10/2025 10:30 AM EDT Appointment [facility] 1 744 [place] [address] 02/11/2025 2:00 PM EDT Appointment [facility] 1 [address] [place] [address] 02/12/2025 2:00 PM EDT Appointment [facility] 1 7[address] [place] [address] 02/13/2025 2:00 PM EDT Appointment [facility] 1 [address] [place] [address] 02/14/2025 2:00 PM EDT Appointment [facility] 1 4 [place] [address] 03/10/2025 8:30 AM EDT Clinical Support [facility] Hematology/BMT and Cellular Therapy Program [address] [place] [address] [place] [address] 03/10/2025 9:00 AM EDT Office Visit [facility] Hematology/BMT and Cellular Therapy Program [address] [place] [address] [place] [address] Isaura Wynn, TAKER OFF BRAKER MACHINE 800 [facility] [address] [place] [address] 03/10/2025 11:20 AM EDT Office Visit Pav CC Head, Neck & Respiratory 800 [facility], 2nd [place] [address] Elsa Razo, TAKER OFF BRAKER MACHINE 800 [place] [address] documented as of this encounter Visit Diagnoses [...] as of this encounter Care Teams Product Evangelist Relationship Specialty Start Date End Date Zhao Harris MD 1210 [facility] [address] [place] [address] PCP - General 12/03/20 documented as of this encounter
--- OUTSIDE RECORDS SUMMARY | 2025-01-30 13:18 | XMS_ITS | Encounter Summary ---
Author Organization [facility] Address [address] [place] [address] Care Team Providers Care Order Tracer Name Role Phone Zhao Harris MD Primary Care Provider [phone] Encounter Details Date Type Department Care Team [...] drink first t manav in the morning (EYE-CHAIR CAR DRIVER) to steady your nerves or to [...] Upcoming Encounters Date Type Department Care Team ([facility] Contact Info) Description 02/02/2025 9:30 AM EDT Appointment [facility] A Interventional Radiology [address] [place] [address] 02/10/2025 8:30 AM EDT Clinical Support [facility] CC Hematology/BMT and Cellular Therapy Program [address] [place] [address] [place] [address] 02/10/2025 9:00 AM EDT Office Visit [facility] CC Hematology/BMT and Cellular Therapy Program [address] [place] [address] Elaina Boss, PA 800 [facility] [address] [place] [address] 02/10/2025 10:30 AM EDT Appointment [facility] 1 [address] [place] [address] 02/11/2025 2:00 PM EDT Appointment [facility] 1 [address] [place] [address] 02/12/2025 2:00 PM EDT Appointment [facility] 1 [address] [place] [address] 02/13/2025 2:00 PM EDT Appointment [facility] 1 [address] [place] [address] 02/14/2025 2:00 PM EDT Appointment [facility] 1 4 [place] [address] 03/10/2025 8:30 AM EDT Clinical Support [facility] Hematology/BMT and Cellular Therapy Program [address] [place] [address] [place] [address] 03/10/2025 9:00 AM EDT Office Visit [facility] CC Hematology/BMT and Cellular Therapy Program [address] [place] [address] [place] [address] Isaura Wynn, SOCIAL WORKER ASSISTANT 800 [facility] [address]st [place] [address] 03/10/2025 11:20 AM EDT Office Visit Pav CC Head, Neck & Respiratory 800 [facility], 2nd [place] [address] Elsa Razo, SOCIAL WORKER ASSISTANT 800 [place] [address] documented as of this encounter Visit Diagnoses [...] documented as of this encounter Care Teams Order Tracer Relationship Specialty Start Date End Date Zhao Harris MD 1210 [facility] [address] [place] [id number] PCP - General 12/03/20 documented as of this encounter
--- OUTSIDE RECORDS SUMMARY | 2025-01-30 13:18 | XMS_ITS | Encounter Summary ---
Author Organization [facility] Address [address] [place] [address] Care Team Providers Care Paint Stripper Name Role Phone Zhao Harris MD Primary Care Provider [phone] Reason for Visit * Reason Comments Med Refill Encounter Details Date Type Department Care Team (Late st Contact Info) Description 06/19/2023 Refill [facility] 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 [address] [place] [address] 02/10/2025 10:30 AM EDT Appointment [facility] 1 744 [place] [address] 02/11/2025 2:00 PM EDT Appointment [facility] 1 [address] [place] [address] 02/12/2025 2:00 PM EDT Appointment [facility] 1 [address] [place] [address] 02/13/2025 2:00 PM EDT Appointment [facility] 1 [address] [place] [address] 02/14/2025 2:00 PM EDT Appointment [facility] 1 [address] [place] [address] 03/10/2025 8:30 AM EDT Clinical Support [facility] Hematology/BMT and Cellular Therapy Program [address] [place] [address] 03/10/2025 9:00 AM EDT Office Visit [facility] Hematology/BMT and Cellular Therapy Program [address] [place] [address] Isaura Wynn, ESTRELLA 800 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
--- OUTSIDE RECORDS SUMMARY | 2025-01-30 13:18 | XMS_ITS | Encounter Summary ---
Author Organization [facility] Address [address] [place] [address] Care Team Providers Care Backbreaker Name Role Phone Zhao Harris MD Primary Care Provider [phone] Encounter Details Date Type Department Care Team ([facility] st Contact Info) Description 12/12/2024 Orders Only [facility] CC Hematology/BMT and Cellular Therapy Program [address] [place] [address] [place] [address] Gricel Gonzalez RN [facility] H[facility] Social History Tobacco [...] drink first t manav in the morning (EYE-DIRECTORY CLERK) to steady your nerves or to [...] [facility] A Interventional Radiology [address] [place] [address] 02/10/2025 8:30 AM EDT Clinical Support P[facility] Hematology/BMT and Cellular Therapy Program [address] [address] 02/10/2025 9:00 AM EDT Office Visit PAV Hematology/BMT and Cellular Therapy Program [address] [address] Elaina Boss, ARAM 800 [facility] [address] [place] [address] 02/10/2025 10:30 AM EDT Appointment [facility] 1 [address] [place] [address] 02/11/2025 2:00 PM EDT Appointment [facility] 1 [address] [place] [address] 02/12/2025 2:00 PM EDT Appointment [facility] 1 [address] [place] [address] 02/13/2025 2:00 PM EDT Appointment [facility] 1 [address] [place] [address] 02/14/2025 2:00 PM EDT Appointment [facility] 1 [address] [place] [address] 03/10/2025 8:30 AM EDT Clinical Support PAV Hematology/BMT and Cellular Therapy Program 750 [facility] [place] [address] 03/10/2025 9:00 AM EDT Office Visit [facility] CC Hematology/BMT and Cellular Therapy Program 750 [facility], 1st [place] [address] Isaura Wynn, JOB SETTER HONING 800 [facility] [address]st [place] [address] 03/10/2025 11:20 AM EDT Office Visit Pav CC Head, Neck & Respiratory 800 [facility], 2nd [place] [address] Elsa Razo, JOB SETTER HONING 800 [place] [address] documented as of this encounter Visit Diagnoses [...] documented as of this encounter Care Teams Backbreaker Relationship Specialty Start Date End Date Zhao Harris MD [address] [place] [address] PCP - General 12/03/20 documented as of this encounter
--- OUTSIDE RECORDS SUMMARY | 2025-01-30 13:18 | XMS_ITS | Encounter Summary ---
Author Organization [facility] Address [address] [place] [address] Care Team Providers Care Model Maker Scale Name Role Phone Zhao Harris MD Primary Care Provider [phone] Encounter Details Date Type Department Care Team ([facility] st Contact Info) Description 01/20/2025 Telephone [facility] CC Hematology/BMT and Cellular Therapy Program [address] [address] Elaina Boss, ARAM 800 [facility] [address] [place] [address] Social History Tobacco Use Types Packs/Day Years [...] drink first t manav in the morning (EYE-ARTS ADMINISTRATOR OR MANAGER) to steady your nerves or to [...] Appointment P[facility] A Interventional Radiology [address] [place] [address] 02/10/2025 8:30 AM EDT Clinical Support [facility] CC Hematology/BMT and Cellular Therapy Program [address] [address] 02/10/2025 9:00 AM EDT Office Visit PAV Hematology/BMT and Cellular Therapy Program [address] [address] Elaina Boss, ARAM 800 [facility] [address] [place] [address] 02/10/2025 10:30 AM EDT Appointment [facility]fusion [facility] 1 744 [place] [address] 02/11/2025 2:00 PM EDT Appointment [facility] 1 [address] [place] [address] 02/12/2025 2:00 PM EDT Appointment [facility] 1 [address] [place] [address] 02/13/2025 2:00 PM EDT Appointment [facility] 1 [address] [place] [address] 02/14/2025 2:00 PM EDT Appointment [facility] 1 [address] [place] [address] 03/10/2025 8:30 AM EDT Clinical Support [facility] CC Hematology/BMT and Cellular Therapy Program [address] [address] 03/10/2025 9:00 AM EDT Office Visit [facility] CC Hematology/BMT and Cellular Therapy Program [address] [address] Isaura Wynn, PLAYERS CLUB REPRESENTATIVE 800 [facility] [address] [place] [phone] 03/10/2025 11:20 AM EDT Office Visit Pav CC Head, Neck & Respiratory 800 [facility], 2nd [place] [address] Elsa Razo, PLAYERS CLUB REPRESENTATIVE 800 [place] [phone] documented as of this encounter Visit Diagnoses [...] documented as of this encounter Care Teams Model Maker Scale Relationship Specialty Start Date End Date Zhao Harris MD [address] [phone] PCP - General 12/03/20 documented as of this encounter
--- OUTSIDE RECORDS SUMMARY | 2025-01-30 13:18 | XMS_ITS | Encounter Summary ---
Author Organization [facility] Address [address] [place] [address] Care Team Providers Care Tire Bagger Name Role Phone Zhao Harris MD Primary Care Provider [phone] Encounter Details Date Type Department Care Team ([facility] st Contact Info) Description 01/12/2025 Telephone [facility] CC Hematology/BMT and Cellular Therapy Program [address] [address] Virgen Vargas MD 800 [facility] [address] [place] [address] Social History Tobacco Use Types Packs/Day Years [...] drink first t manav in the morning (EYE-ENGINEERING CONSULTANT) to steady your nerves or to [...] Wanting tospeak to Dr. Vargas Callback number: [phone] Personal number documented in this encounter Plan of Treatment Upcoming Encounters Date Type Department Care Team ([facility] st Contact Info) Description 02/02/2025 9:30 AM EDT Appointment PAV A Interventional Radiology [address] [place] [address] 02/10/2025 8:30 AM EDT Clinical Support P[facility] CC Hematology/BMT and Cellular Therapy Program [address] [place] [address] 02/10/2025 9:00 AM EDT Office Visit PAV Hematology/BMT and Cellular Therapy Program [address] [place] [address] Elaina Boss, ARAM 800 [facility] [address] [place] [address] 02/10/2025 10:30 AM EDT Appointment [facility]fusion [facility] 1 [address] [place] [address] 02/11/2025 2:00 PM EDT Appointment [facility]fusion [facility] 1 [address] [place] [address] 02/12/2025 2:00 PM EDT Appointment [facility] 1 [address] [place] [address] 02/13/2025 2:00 PM EDT Appointment [facility] 1 [address] [place] [address] 02/14/2025 2:00 PM EDT Appointment [facility] 1 [address] [place] [address] 03/10/2025 8:30 AM EDT Clinical Support [facility] CC Hematology/BMT and Cellular Therapy Program [address] [address] 03/10/2025 9:00 AM EDT Office Visit [facility] CC Hematology/BMT and Cellular Therapy Program [address] [address] Isaura Wynn, FRY COOK 800 [facility] [address] [place] [phone] 03/10/2025 11:20 AM EDT Office Visit Pav CC Head, Neck & Respiratory 800 [facility], 2nd [place] [address] Elsa Razo, FRY COOK 800 [place] [phone] documented as of this encounter Visit Diagnoses [...] as of this encounter Care Teams Tire Bagger Relationship Specialty Start Date End Date Zhao Harris MD 1210 [place] [address] PCP - General 12/03/20 documented as of this encounter
--- OUTSIDE RECORDS SUMMARY | 2025-01-30 13:18 | XMS_ITS | Encounter Summary ---
Author Organization [facility] Address [address] 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) Virgen Vargas MD [address] [address] Phone: tel:[phone] fax:[phone] [facility] Multidisciplinary On[facility] 800 [place] [address] Phone: tel: fax: Referral ID Status Reason Start Date Expiration Date V isits Requested Visits Authorized [id number] Closed Specialty Services Required 12/11/2024 06/12/2026 1 1 Scheduling Instructions AML, evaluation for clinical trials * Consultation (Routine) - Closed Specialty Diagnoses / Procedures Referred By Justice mcgee Referred To Contact Medical Oncology Diagnoses 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) Virgen Vargas MD [address] [address] Phone: tel: fax: Referral ID Status Reason Start Date Expiration Date V isits Requested Visits Authorized [id number] Closed Specialty Services Required 12/11/2024 06/12/2026 1 1 Scheduling Instructions AML evaluation for clinical trials Encounter Details Date Type Department Care Team ([facility] Contact Info) Description 12/11/2024 Orders Only P[facility] CC Hematology/BMT and Cellular Therapy Program 750 [facility], 1st [address] [place] [address] Shahla Mejia RN [facility] AMB SERV ADMIN Acute myeloid leukemia [...] first t manav in the morning (EYE-APPLICATIONS PROGRAMMER ANALYST) to steady your nerves or to [...] Care Team ([facility] Contact Info) Description 02/02/2025 9:30 AM EDT Appointment PAV A Interventional Radiology [address] [place] [address] 02/10/2025 8:30 AM EDT Clinical Support PAV Hematology/BMT and Cellular Therapy Program [address] [address] 02/10/2025 9:00 AM EDT Office Visit PAV Hematology/BMT and Cellular Therapy Program [address] [address] Elaina Boss, PA 800 [facility] [address] [place] [address] 02/10/2025 10:30 AM EDT Appointment [facility]fusion [facility] 1 [address] [place] [address] 02/11/2025 2:00 PM EDT Appointment [facility] 1 [address] [place] [address] 02/12/2025 2:00 PM EDT Appointment [facility] 1 [address] [place] [address] 02/13/2025 2:00 PM EDT Appointment [facility] 1 [address] [place] [address] 02/14/2025 2:00 PM EDT Appointment [facility] 1 [address] [place] [address] 03/10/2025 8:30 AM EDT Clinical Support PAV Hematology/BMT and Cellular Therapy Program [address] [address] 03/10/2025 9:00 AM EDT Office Visit PAV Hematology/BMT and Cellular Therapy Program [address] [address] Isaura Wynn, TASSEL MAKER 800 [facility] [address] [place] [phone] 03/10/2025 11:20 AM EDT Office Visit Pav CC Head, Neck & Respiratory 800 [facility], 2nd [place] [address] Elsa Razo, TASSEL MAKER 800 [place] [address] Scheduled Referrals Name Type Priority Associated Diagnoses [...] as of this encounter Care Teams Event Manager Relationship Specialty Start Date End Date Zhao Harris MD [address] [place] [address] PCP - General 12/03/20 documented as of this encounter
--- OUTSIDE RECORDS SUMMARY | 2025-01-30 13:18 | XMS_ITS | Encounter Summary ---
Author Organization [facility] Address [address] [place] [address] Care Team Providers Care Cutting And Printing Machine Operator Name Role Phone Zhao Harris MD Primary Care Provider [phone] Encounter Details Date Type Department Care Team ([facility] st Contact Info) Description 12/16/2024 Orders Only PAV CC Hematology/BMT and Cellular Therapy Program [address] [address] Christina Ramos MD 800 [facility] [address] [place] [address] Myelodysplasia (myelodysplastic syndrome) (CMS/HCC) (Primary Dx) Social [...] drink first t manav in the morning (EYE-WELL DRILL OPERATOR HELPER CABLE TOOL) to steady your nerves or to [...] Upcoming Encounters Date Type Department Care Team ([facility] st Contact Info) Description 02/02/2025 9:30 AM EDT Appointment PAV A Interventional Radiology [address] [place] [address] 02/10/2025 8:30 AM EDT Clinical Support PAV CC Hematology/BMT and Cellular Therapy Program [address] [address] 02/10/2025 9:00 AM EDT Office Visit PAV Hematology/BMT and Cellular Therapy Program [address] [address] Elaina Boss, PA 800 [facility] [address] [place] [address] 02/10/2025 10:30 AM EDT Appointment [facility] Infusion Clinic 1 [address] [place] [address] 02/11/2025 2:00 PM EDT Appointment [facility] 1 [address] [place] [address] 02/12/2025 2:00 PM EDT Appointment [facility] 1 [address] [place] [address] 02/13/2025 2:00 PM EDT Appointment [facility] 1 [address] [place] [address] 02/14/2025 2:00 PM EDT Appointment [facility] 1 [address] [place] [address] 03/10/2025 8:30 AM EDT Clinical Support PAV CC Hematology/BMT and Cellular Therapy Program 750 [facility] [place] [address] 03/10/2025 9:00 AM EDT Office Visit PAV CC Hematology/BMT and Cellular Therapy Program 750 [facility] [place] [address] Isaura Wynn, PILOT CAN ROUTER 800 [facility] [address] [place] [address] 03/10/2025 11:20 AM EDT Office Visit Pav CC Head, Neck & Respiratory 800 [facility], 2nd [place] [address] Elsa Razo, PILOT CAN ROUTER [address] [place] [address] documented as of this encounter Results * (ABNORMAL) Comprehensive metabolic panel (01/06/2025 8:49 AM EDT) Glucose, Plasma 100(H) 74 - 99 mg/dL 01/06/2025 9:34 AM EDT [facility] BUN, Plasma 8 8 - 23 mg/dL 01/06/2025 9:34 AM EDT [facility] Creatinine, Plasma 0.76 0.70 - 1.20 mg/dL 01/06/2025 9:34 AM EDT [facility] BUN/Creatinine Ratio 11 01/06/2025 9:34 AM EDT [facility] Sodium, Plasma 138 136 - 145 mmol/L 01/06/2025 9:34 AM EDT [facility] Potassium, Plasma 4.3 3.6 - 4.9 mmol/L 01/06/2025 9:34 AM EDT [facility] Chloride, Plasma 109(H) 97 - 107 mmol/L 01/06/2025 9:34 AM EDT [facility] CO2, Plasma 21(L) 22 - 29 mmol/L 01/06/2025 9:34 AM EDT [facility] Anion Gap 8 6 - 16 mmol/L 01/06/2025 9:34 AM EDT [facility] Total Calcium, Plasma 8.8(L) 8.9 - 10.2 mg/dL 01/06/2025 9:34 AM EDT [facility] Total Protein 6.6 6.3 - 7.9 g/dL 01/06/2025 9:34 AM EDT [facility] Albumin, Plasma 3.9 3.5 - 5.2 g/dL 01/06/2025 9:34 AM EDT [facility] AST, Plasma 25 10 - 50 U/L 01/06/2025 9:34 AM EDT [facility] ALT, Plasma 28 10 - 50 U/L 01/06/2025 9:34 AM EDT [facility] Alkaline Phosphatase, Plasma 83 40 - 115 U/L 01/06/2025 9:34 AM EDT [facility] Total Bilirubin, Plasma 0.5 0.2 - 1.1 mg/dL 01/06/2025 9:34 AM EDT [facility] eGFRcr 97.3 mL/min/1.7 3m*2 01/06/2025 9:34 AM EDT [facility] Comment:Reported eGFRcr in m L/min/1.73m2 is based the CKD-EPI 2020 equation that does not use a race coefficient. Blood Venous blood specimen / Unknown Venipuncture / Unknown 01/06/2025 8:49 AM EDT 01/06/2025 9:01 AM EDT us Christina Ramos MD LAB BLOOD ORDERABLES Final Resul t [facility] [address] [place] [address] * (ABNORMAL) CBC and differential (01/06/2025 8:49 AM EDT) WBC Count 0.59(LL) 3.70 - 10.30 10*3/uL LAB HEMATOLOGY METHOD 01/06/2025 11:36 AM EDT [facility] RBC Count 2.95(L) 4.60 - 6.10 10*6/uL LAB HEMATOLOGY METHOD 01/06/2025 11:36 AM EDT [facility] HGB 8.8(L) 13.7 - 17.5 g/dL LAB HEMATOLOGY METHOD 01/06/2025 11:36 AM EDT [facility] HCT 25.3(L) 40.0 - 51.0 % LAB HEMATOLOGY METHOD 01/06/2025 11:36 AM EDT [facility] Platelet Count 75(L) 155 - 369 10*3/uL LAB HEMATOLOGY METHOD 01/06/2025 11:36 AM EDT [facility] MCV 86 79 - 98 fL LAB HEMATOLOGY METHOD 01/06/2025 11:36 AM EDT [facility] MCH 29.8 26.0 - 32.0 pg LAB HEMATOLOGY METHOD 01/06/2025 11:36 AM EDT [facility] MCHC 34.8 30.7 - 35.5 g/dL LAB HEMATOLOGY METHOD 01/06/2025 11:36 AM EDT [facility] RDW 14.6(H) 11.5 - 14.5 % LAB HEMATOLOGY METHOD 01/06/2025 11:36 AM EDT [facility] MPV 10.7 8.8 - 12.5 fL LAB HEMATOLOGY METHOD 01/06/2025 11:36 AM EDT [facility] nRBC 3.4(H) <=0.0 per 100 WBCs LAB HEMATOLOGY METHOD 01/06/2025 11:36 AM EDT [facility] Differential Type Automated LAB HEMATOLOGY METHOD 01/06/2025 11:36 AM EDT [facility] Neutrophils % 5 % LAB HEMATOLOGY METHOD 01/06/2025 11:36 AM EDT [facility] Lymphocytes % 88 % LAB HEMATOLOGY METHOD 01/06/2025 11:36 AM EDT [facility] Monocytes % 7 % LAB HEMATOLOGY METHOD 01/06/2025 11:36 AM EDT [facility] Eosinophils % 0 % LAB HEMATOLOGY METHOD 01/06/2025 11:36 AM EDT [facility] Basophils % 0 % LAB HEMATOLOGY METHOD 01/06/2025 11:36 AM EDT [facility] Immature Granulocytes % 0 % LAB HEMATOLOGY METHOD 01/06/2025 11:36 AM EDT [facility] Neutrophils Absolute 0.03(LL) 1.60 - 6.10 10*3/uL LAB HEMATOLOGY METHOD 01/06/2025 11:36 AM EDT [facility] Lymphocytes Absolute 0.52(L) 1.20 - 3.90 10*3/uL LAB HEMATOLOGY METHOD 01/06/2025 11:36 AM EDT [facility] Monocytes Absolute 0.04(L) 0.30 - 0.90 10*3/uL LAB HEMATOLOGY METHOD 01/06/2025 11:36 AM EDT [facility] Eosinophils Absolute 0.00 0.00 - 0.50 10*3/uL LAB HEMATOLOGY METHOD 01/06/2025 11:36 AM EDT [facility] Basophils Absolute 0.00 0.00 - 0.10 10*3/uL LAB HEMATOLOGY METHOD 01/06/2025 11:36 AM EDT [facility] Immature Granulocytes Absolute 0.00 0.00 - 0.06 10*3/uL LAB HEMATOLOGY METHOD 01/06/2025 11:36 AM EDT [facility] Blood Venous blood specimen / Unknown Venipuncture / Unknown 01/06/2025 8:49 AM EDT 01/06/2025 9:[address] [facility] - 01/06/2025 11:36 AM EDT Therapeutic decision making should be based on absolute values, rather than percentages. us Christina Ramos MD LAB BLOOD ORDERABLES Final Resul t [facility] [address] [place] [address] * (ABNORMAL) CBC and differential (12/20/2024 9:00 AM EDT) WBC Count 0.59(LL) 3.70 - 10.30 10*3/uL LAB HEMATOLOGY METHOD 12/20/2024 10:25 AM EDT [facility] RBC Count 2.46(L) 4.60 - 6.10 10*6/uL LAB HEMATOLOGY METHOD 12/20/2024 10:25 AM EDT [facility] HGB 7.8(L) 13.7 - 17.5 g/dL LAB HEMATOLOGY METHOD 12/20/2024 10:25 AM EDT [facility] HCT 22.0(L) 40.0 - 51.0 % LAB HEMATOLOGY METHOD 12/20/2024 10:25 AM EDT [facility] Platelet Count 22(L) 155 - 369 10*3/uL LAB HEMATOLOGY METHOD 12/20/2024 10:25 AM EDT [facility] MCV 89 79 - 98 fL LAB HEMATOLOGY METHOD 12/20/2024 10:25 AM EDT [facility] MCH 31.7 26.0 - 32.0 pg LAB HEMATOLOGY METHOD 12/20/2024 10:25 AM EDT [facility] MCHC 35.5 30.7 - 35.5 g/dL LAB HEMATOLOGY METHOD 12/20/2024 10:25 AM EDT [facility] RDW 16.0(H) 11.5 - 14.5 % LAB HEMATOLOGY METHOD 12/20/2024 10:25 AM EDT [facility] MPV 11.3 8.8 - 12.5 fL LAB HEMATOLOGY METHOD 12/20/2024 10:25 AM EDT [facility] nRBC 0.0 <=0.0 per 100 WBCs LAB HEMATOLOGY METHOD 12/20/2024 10:25 AM EDT [facility] Differential Type Automated LAB HEMATOLOGY METHOD 12/20/2024 10:25 AM EDT [facility] Neutrophils % 5 % LAB HEMATOLOGY METHOD 12/20/2024 10:25 AM EDT [facility] Lymphocytes % 92 % LAB HEMATOLOGY METHOD 12/20/2024 10:25 AM EDT [facility] Monocytes % 3 % LAB HEMATOLOGY METHOD 12/20/2024 10:25 AM EDT [facility] Eosinophils % 0 % LAB HEMATOLOGY METHOD 12/20/2024 10:25 AM EDT [facility] Basophils % 0 % LAB HEMATOLOGY METHOD 12/20/2024 10:25 AM EDT [facility] Immature Granulocytes % 0 % LAB HEMATOLOGY METHOD 12/20/2024 10:25 AM EDT [facility] Neutrophils Absolute 0.03(LL) 1.60 - 6.10 10*3/uL LAB HEMATOLOGY METHOD 12/20/2024 10:25 AM EDT [facility] Lymphocytes Absolute 0.54(L) 1.20 - 3.90 10*3/uL LAB HEMATOLOGY METHOD 12/20/2024 10:25 AM EDT [facility] Monocytes Absolute 0.02(L) 0.30 - 0.90 10*3/uL LAB HEMATOLOGY METHOD 12/20/2024 10:25 AM EDT [facility] Eosinophils Absolute 0.00 0.00 - 0.50 10*3/uL LAB HEMATOLOGY METHOD 12/20/2024 10:25 AM EDT [facility] Basophils Absolute 0.00 0.00 - 0.10 10*3/uL LAB HEMATOLOGY METHOD 12/20/2024 10:25 AM EDT [facility] Immature Granulocytes Absolute 0.00 0.00 - 0.06 10*3/uL LAB HEMATOLOGY METHOD 12/20/2024 10:25 AM EDT [facility] Blood Blood sample taken from central line / Unknown (Central Line) Existing Catheter / Unknown 12/20/2024 9:00 AM EDT 12/20/2024 9:13 AM EDT Narrative [facility] - 12/20/2024 10:25 AM EDT Therapeutic decision making should be based on absolute values, rather than percentages. us Christina Ramos MD LAB BLOOD ORDERABLES Final Resul t [facility] [address] [place] [address] * (ABNORMAL) CBC and differential (12/18/2024 9:14 AM EDT) WBC Count 0.51(LL) 3.70 - 10.30 10*3/uL LAB HEMATOLOGY METHOD 12/18/2024 10:49 AM EDT [facility] RBC Count 2.50(L) 4.60 - 6.10 10*6/uL LAB HEMATOLOGY METHOD 12/18/2024 10:49 AM EDT [facility] HGB 8.1(L) 13.7 - 17.5 g/dL LAB HEMATOLOGY METHOD 12/18/2024 10:49 AM EDT [facility] HCT 21.9(L) 40.0 - 51.0 % LAB HEMATOLOGY METHOD 12/18/2024 10:49 AM EDT [facility] Platelet Count 6(LL) 155 - 369 10*3/uL LAB HEMATOLOGY METHOD 12/18/2024 10:49 AM EDT [facility] MCV 88 79 - 98 fL LAB HEMATOLOGY METHOD 12/18/2024 10:49 AM EDT [facility] MCH 32.4(H) 26.0 - 32.0 pg LAB HEMATOLOGY METHOD 12/18/2024 10:49 AM EDT [facility] MCHC 37.0(H) 30.7 - 35.5 g/dL LAB HEMATOLOGY METHOD 12/18/2024 10:49 AM EDT [facility] RDW 16.7(H) 11.5 - 14.5 % LAB HEMATOLOGY METHOD 12/18/2024 10:49 AM EDT [facility] MPV LAB HEMATOLOGY METHOD 12/18/2024 10:49 AM EDT [facility] Comment:Not Measured nRBC 0.0 <=0.0 per 100 WBCs LAB HEMATOLOGY METHOD 12/18/2024 10:49 AM EDT [facility] Differential Type Automated LAB HEMATOLOGY METHOD 12/18/2024 10:49 AM EDT [facility] Neutrophils % 6 % LAB HEMATOLOGY METHOD 12/18/2024 10:49 AM EDT [facility] Lymphocytes % 90 % LAB HEMATOLOGY METHOD 12/18/2024 10:49 AM EDT [facility] Monocytes % 4 % LAB HEMATOLOGY METHOD 12/18/2024 10:49 AM EDT [facility] Eosinophils % 0 % LAB HEMATOLOGY METHOD 12/18/2024 10:49 AM EDT [facility] Basophils % 0 % LAB HEMATOLOGY METHOD 12/18/2024 10:49 AM EDT [facility] Immature Granulocytes % 0 % LAB HEMATOLOGY METHOD 12/18/2024 10:49 AM EDT [facility] Neutrophils Absolute 0.03(LL) 1.60 - 6.10 10*3/uL LAB HEMATOLOGY METHOD 12/18/2024 10:49 AM EDT [facility] Lymphocytes Absolute 0.46(L) 1.20 - 3.90 10*3/uL LAB HEMATOLOGY METHOD 12/18/2024 10:49 AM EDT [facility] Monocytes Absolute 0.02(L) 0.30 - 0.90 10*3/uL LAB HEMATOLOGY METHOD 12/18/2024 10:49 AM EDT [facility] Eosinophils Absolute 0.00 0.00 - 0.50 10*3/uL LAB HEMATOLOGY METHOD 12/18/2024 10:49 AM EDT [facility] Basophils Absolute 0.00 0.00 - 0.10 10*3/uL LAB HEMATOLOGY METHOD 12/18/2024 10:49 AM EDT [facility] Immature Granulocytes Absolute 0.00 0.00 - 0.06 10*3/uL LAB HEMATOLOGY METHOD 12/18/2024 10:49 AM EDT [facility] Blood Blood sample taken from central line / Unknown Venipuncture / Unknown 12/18/2024 9:14 AM EDT 12/18/2024 9:20 AM EDT Narrative [facility] - 12/18/2024 10:49 AM EDT Therapeutic decision making should be based on absolute values, rather than percentages. us Christina Ramos MD LAB BLOOD ORDERABLES Final Resul t [facility] [address] [place] [address] documented in this encounter Visit Diagnoses Diagnosis [...] documented as of this encounter Care Teams Cutting And Printing Machine Operator Relationship Specialty Start Date End Date Zhao Harris MD [address] [place] [address] PCP - General 12/03/20 documented as of this encounter
--- OUTSIDE RECORDS SUMMARY | 2025-01-30 13:19 | XMS_ITS | Encounter Summary ---
Author Organization [facility] Address [address] [place] [address] Care Team Providers Care Staff Design Engineer Name Role Phone Zhao Harris MD Primary Care Provider [phone] Encounter Details Date Type Department Care Team ([facility] st Contact Info) Description 01/22/2025 Telephone PAV CC Hematology/BMT and Cellular Therapy Program [address] [address] Virgen Vargas MD 800 [facility] [address] [place] [address] Social History Tobacco Use Types Packs/Day Years [...] drink first t manav in the morning (EYE-BINDING END STITCHER) to steady your nerves or to [...] - 01/22/2025 3:50 PM EDT Callback number: [phone] [facility] calling to obtain patient's insurance information documented in this encounter Plan of Treatment Upcoming Encounters Date Type Department Care Team ([facility] Contact Info) Description 02/02/2025 9:30 AM EDT Appointment PAV A Interventional Radiology [address] [place] [address] 02/10/2025 8:30 AM EDT Clinical Support PAV Hematology/BMT and Cellular Therapy Program [address] [address] 02/10/2025 9:00 AM EDT Office Visit PAV Hematology/BMT and Cellular Therapy Program [address] [address] Elaina Boss PA 800 [facility] [address] [place] [address] 02/10/2025 10:30 AM EDT Appointment [facility] Infusion [facility] 1 [address] [place] [address] 02/11/2025 2:00 PM EDT Appointment [facility] 1 [address] [place] [address] 02/12/2025 2:00 PM EDT Appointment [facility] 1 [address] [place] [address] 02/13/2025 2:00 PM EDT Appointment [facility] 1 [address] [place] [address] 02/14/2025 2:00 PM EDT Appointment [facility] 1 [address] [place] [address] 03/10/2025 8:30 AM EDT Clinical Support PAV CC Hematology/BMT and Cellular Therapy Program [address] [place] [address] 03/10/2025 9:00 AM EDT Office Visit PAV Hematology/BMT and Cellular Therapy Program [address] [address] Isaura Wynn, TATTOO DESIGNER 800 [facility] [address] [address] 03/10/2025 11:20 AM EDT Office Visit Pav CC Head, Neck & Respiratory 800 [facility], 2nd [place] [address] Elsa Razo, TATTOO DESIGNER [address] [place] [address] documented as of this encounter Visit Diagnoses [...] documented as of this encounter Care Teams Staff Design Engineer Relationship Specialty Start Date End Date Zhao Harris MD [address] [place] [facility] [address] [place] [address] PCP - General 12/03/20 documented as of this encounter
--- OUTSIDE RECORDS SUMMARY | 2025-01-30 13:19 | XMS_ITS | Encounter Summary ---
Author Organization [facility] Address [address] [place] [address] Care Team Providers Care Neighborhood Planner Name Role Phone Zhao Harris MD Primary Care Provider [phone] Reason for Visit * Reason Comments Med Refill Encounter Details Date Type Department Care Team (Late st Contact Info) Description 01/18/2022 Refill [facility] [place] [address] [facility], [address] [place] [address] Regina Hill, PA [address] [place] [address] Hypertension, unspecified type Social History [...] PAV A Interventional Radiology [address] [place] [phone] 02/10/2025 8:30 AM EDT Clinical Support PAV CC Hematology/BMT and Cellular Therapy Program 750 [facility] [address] [place] [address] 02/10/2025 9:00 AM EDT Office Visit PAV CC Hematology/BMT and Cellular Therapy Program [address] [place] [address] Elaina Boss, ARAM [address] [address] 02/10/2025 10:30 AM EDT Appointment [facility] 1 [address] [place] [phone] 02/11/2025 2:00 PM EDT Appointment [facility] 1 [address] [place] [address] 02/12/2025 2:00 PM EDT Appointment [facility] 1 [address] [place] [address] 02/13/2025 2:00 PM EDT Appointment [facility] 1 [address] [place] [address] 02/14/2025 2:00 PM EDT Appointment [facility] 1 [address] [place] [address] 03/10/2025 8:30 AM EDT Clinical Support PAV Hematology/BMT and Cellular Therapy Program [address] [phone] 03/10/2025 9:00 AM EDT Office Visit PAV Hematology/BMT and Cellular Therapy Program [address] [phone] Isaura Wynn, SBA UNDERWRITER 800 [facility] [address] [phone] 03/10/2025 11:20 AM EDT Office Visit Pav Head, Neck & Respiratory 800 [facility], [address]nd [place] [address] Elsa Razo, SBA UNDERWRITER [address] [place] [address] documented as of this encounter Visit Diagnoses Diagnosis Hypertension, unspecified type documented in this encounter Additional Health Concerns Infection Onset Date Last Indicated Resolved Time Respiratory Rule-Out 11/03/2024 11/03/2024 025 5:17 PM EDT documented as of this encounter Care Teams Neighborhood Planner Relationship Specialty Start Date End Date Zhao Harris MD [address] [place] [address] PCP - General 12/03/20 documented as of this encounter
--- OUTSIDE RECORDS SUMMARY | 2025-01-30 13:19 | XMS_ITS | Encounter Summary ---
Author Organization [facility] Address [address] [place] [address] Care Team Providers Care Bell Staff Name Role Phone Zhao Harris MD Primary Care Provider [phone] Encounter Details Date Type Department Care Team (Late st Contact Info) Description 10/15/2024 Lab Requisition [facility] H Lab [address] [place] [address] Virgen Vargas MD 800 [facility] [address] [place] [phone] Abnormal finding of blood chemistry, unspecified Social [...] Appointment P[facility] A Interventional Radiology [address] [place] [phone] 02/10/2025 8:30 AM EDT Clinical Support [facility] CC Hematology/BMT and Cellular Therapy Program [address] [address] 02/10/2025 9:00 AM EDT Office Visit [facility] Hematology/BMT and Cellular Therapy Program [address] [address] Elaina Boss, PA 800 [facility] [address] [place] [phone] 02/10/2025 10:30 AM EDT Appointment [facility] 1 [address] [place] [address] 02/11/2025 2:00 PM EDT Appointment [facility] 1 [address] [place] [address] 02/12/2025 2:00 PM EDT Appointment [facility] 1 [address] [place] [address] 02/13/2025 2:00 PM EDT Appointment [facility] 1 [address] [place] [address] 02/14/2025 2:00 PM EDT Appointment [facility] 1 [address] [place] [address] 03/10/2025 8:30 AM EDT Clinical Support [facility] Hematology/BMT and Cellular Therapy Program [address] [place] [address] 03/10/2025 9:00 AM EDT Office Visit [facility] Hematology/BMT and Cellular Therapy Program [address] [place] [address] Isaura Wynn, ESTRELLA 800 [facility] [address] [phone] 03/10/2025 11:20 AM EDT Office Visit Pav CC Head, Neck & Respiratory [address], 2nd [place] [address] Elsa Razo, EQUITY DIRECTOR [address] [place] [address] documented as of this encounter Procedures Procedure Name Priority Date/Time Associated Diagnosis Comments BONE MARROW EXAM CONSULT Routine 10/15/2024 1:27 PM EDT Abnormal finding of blood chemistry, unspecified documented in this encounter Results * Bone marrow exam consult (10/15/2024 1:27 PM EDT) Case Report Bone Marrow Case: [id number] Authorizing Provider: Virgen Vargas MD Collected: 10/15/2024 1327 Ordering Location: [facility] Lab Received: 10/15/2024 1327 Pathologist: Martha Lopez MD Specimen: Bone Marrow Aspirate, [id number] 10/16/2024 2:02 PM EDT [facility] Final Diagnosis A. BONE MARROW ASPIRATE AND BIOPSY (OUTSIDE SLIDES [id number], 09/19/2024): - NORMOCELLULAR BONE MARROW WITH DYSPOIESIS AND APPROXIMATELY 15% BLASTS; FINDINGS CONSISTENT WITH MYELODYSPLASTIC SYNDROME WITH INCREASED BLASTS , SEE COMMENT.. 10/16/2024 2:02 PM EDT [facility] at 1402 EDT Comment Findings are those of MDS with increased blasts type 2 (MDS-IB-2) in the WHO 5th edition and MDS/AML in the International Consensus Classification. 10/16/2024 2:02 PM EDT [facility] Clinical Information R79.9 - Abnormal finding of blood chemistry, unspecified [ICD-10-CM] 10/16/2024 2:02 PM EDT [facility] CBC and Differential PERIPHERAL BLOOD: [...] Granulocytes % 0 10/16/2024 2:02 PM EDT [facility] Bone Marrow Differential BONE MARROW DIFFERENTIAL: 200 cells Normal Patient Neutrophils 15-50 22 Metamyelocytes 4-19 3 Myelocytes 1-18 11 Promyelocytes 1-8 1 Blasts 0-2 13 Monocytes 0-5 4 Erythroid 16-38 41 Lymphocytes 3-24 4 Eosinophils 0-6 1 Basophils 0-2 0 Plasma cells 0-4 0 Other 10/16/2024 2:02 PM EDT [facility] Bone Marrow Aspirate and Biopsy [...] trabeculae are unremarkable. 10/16/2024 2:02 PM EDT [facility] Flow Cytometry Interpretation Outside flow cytometry showed 17% myeloblasts expressing CD34, CD117, partial CD 38, partial CD7, HLA-DR, CD13 and variable CD33. 10/16/2024 2:02 PM EDT [facility] CYTOGENETICS/MOL ECULAR INTERPRETATION Cytogenetic analysis showed normal male karyotype. No FLT3 duplication or mutation was identified, and no NPM1 mutation was identified. 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 10/16/2024 2:02 PM EDT [facility] Gross Description A. [id number] Received along with a corresponding pathology report from [facility]ology [facility] Cytology Laboratory are 12 slides labeled outside case: [id number] collected on 09/19/2024. 10/16/2024 2:02 PM EDT [facility] Bone Marrow Specimen from bone marrow obtained by aspiration / Unknown 10/15/2024 1:27 PM EDT 10/15/2024 1:27 PM EDT us Virgen Vargas MD LAB PATHOLOGY ORDERABLES Terri lara Result [facility] [address] [place] [address] documented in this encounter Visit Diagnoses Diagnosis [...] documented as of this encounter Care Teams Bell Staff Relationship Specialty Start Date End Date Zhao Harris MD [address] [place] [address] PCP - General 12/03/20 documented as of this encounter
--- OUTSIDE RECORDS SUMMARY | 2025-01-30 13:19 | XMS_ITS | Encounter Summary ---
Author Organization [facility] Address [address] [place] [address] Care Team Providers Care Warp Hauler Name Role Phone Zhao Harris MD Primary Care Provider [phone] Reason for Visit * Reason Onset Date Comments Distress Screen Follow-up 11/25/2024 Encounter Details Date Type Department Care Team (Late st Contact Info) Description 11/25/2024 Telephone [facility] Hematology/BMT and Cellular Therapy Program [address] [place] [address] [place] [address] Michelle Mast Distress Screen Follow-up Social History [...] drink first t manav in the morning (EYE-SOILS ENGINEER) to steady your nerves or to [...] Appointment [facility] A Interventional Radiology [address] [place] [address] 02/10/2025 8:30 AM EDT Clinical Support [facility] Hematology/BMT and Cellular Therapy Program [address] [place] [phone] 02/10/2025 9:00 AM EDT Office Visit [facility] Hematology/BMT and Cellular Therapy Program [address] [address] Elaina Boss PA 800 [facility] [address] [place] [address] 02/10/2025 10:30 AM EDT Appointment [facility] 1 [address] [place] [address] 02/11/2025 2:00 PM EDT Appointment [facility] 1 [address] [place] [address] 02/12/2025 2:00 PM EDT Appointment [facility] 1 [address] [place] [address] 02/13/2025 2:00 PM EDT Appointment [facility] 1 [address] [place] [address] 02/14/2025 2:00 PM EDT Appointment [facility] 1 [address] [place] [address] 03/10/2025 8:30 AM EDT Clinical Support [facility] Hematology/BMT and Cellular Therapy Program [address] [address] 03/10/2025 9:00 AM EDT Office Visit [facility] Hematology/BMT and Cellular Therapy Program [address] [address] Isaura Wynn, COMMISSION AGENT LIVESTOCK 800 [facility] [address] [place] [phone] 03/10/2025 11:20 AM EDT Office Visit Pav CC Head, Neck & Respiratory 800 [facility], 2nd [place] [address] Elsa Razo, COMMISSION AGENT LIVESTOCK [address] [place] [phone] documented as of this encounter Visit Diagnoses [...] documented as of this encounter Care Teams Warp Hauler Relationship Specialty Start Date End Date Zhao Harris MD 1210 [facility] [address] [place] [address] PCP - General 12/03/20 documented as of this encounter
--- OUTSIDE RECORDS SUMMARY | 2025-01-30 13:19 | XMS_ITS | Encounter Summary ---
Author Organization [facility] Address [address] [place] [address] Care Team Providers Care Body Welder Name Role Phone Zhao Harris MD Primary Care Provider [phone] Encounter Details Date Type Department Care Team [...] first t manav in the morning (EYE-VP ANCILLARY) to steady your nerves or to get [...] Upcoming Encounters Date Type Department Care Team ([facility] Contact Info) Description 02/02/2025 9:30 AM EDT Appointment [facility] A Interventional Radiology [address] [place] [address] 02/10/2025 8:30 AM EDT Clinical Support [facility] CC Hematology/BMT and Cellular Therapy Program [address] [place] [address] [place] [address] 02/10/2025 9:00 AM EDT Office Visit [facility] CC Hematology/BMT and Cellular Therapy Program [address] [place] [phone] Elaina Boss, PA 800 [facility] [address] [place] [phone] 02/10/2025 10:30 AM EDT Appointment [facility] 1 [address] [place] [address] 02/11/2025 2:00 PM EDT Appointment [facility] 1 [address] [place] [address] 02/12/2025 2:00 PM EDT Appointment [facility] 1 [address] [place] [address] 02/13/2025 2:00 PM EDT Appointment [facility] 1 [address] [place] [address] 02/14/2025 2:00 PM EDT Appointment [facility] 1 4 [place] [address] 03/10/2025 8:30 AM EDT Clinical Support [facility] CC Hematology/BMT and Cellular Therapy Program [address] [place] [address] [place] [address] 03/10/2025 9:00 AM EDT Office Visit [facility] CC Hematology/BMT and Cellular Therapy Program [address] [place] [address] [place] [phone] Isaura Wynn, CONTROLS DESIGNER 800 [facility] [address] [place] [address] 03/10/2025 11:20 AM EDT Office Visit Pav CC Head, Neck & Respiratory 800 [facility], 2nd [place] [address] Elsa Razo, CONTROLS DESIGNER [address] [place] [phone] documented as of this encounter Visit Diagnoses [...] documented as of this encounter Care Teams Body Welder Relationship Specialty Start Date End Date Zhao Harris MD 1210 [facility] [address] [place] [address] PCP - General 12/03/20 documented as of this encounter
--- OUTSIDE RECORDS SUMMARY | 2025-01-30 13:19 | XMS_ITS | Encounter Summary ---
Author Organization [facility] Address [address] [place] [address] Care Team Providers Care Clerical Support Name Role Phone Zhao Harris MD Primary Care Provider [phone] Reason for Visit * Reason Comments Med Refill Encounter Details Date Type Department Care Team (Late st Contact Info) Description 09/22/2021 Refill [facility] [place] [address] [facility], [address] [place] [address] Regina Hill, ARAM [address] [place] [address] Coronary artery disease involving [place] heart with angina pectoris, unspecified vessel or [...] Appointment [facility] A Interventional Radiology [address] [place] [phone] 02/10/2025 8:30 AM EDT Clinical Support [facility] CC Hematology/BMT and Cellular Therapy Program 750 [facility] [place] [address] 02/10/2025 9:00 AM EDT Office Visit [facility] Hematology/BMT and Cellular Therapy Program [address] [phone] Elaina Boss, PA 800 [facility] [address] [place] [phone] 02/10/2025 10:30 AM EDT Appointment [facility] 1 [address] [place] [address] 02/11/2025 2:00 PM EDT Appointment [facility] 1 [address] [place] [address] 02/12/2025 2:00 PM EDT Appointment [facility] 1 [address] [place] [address] 02/13/2025 2:00 PM EDT Appointment [facility] 1 [address] [place] [address] 02/14/2025 2:00 PM EDT Appointment [facility] 1 [address] [place] [address] 03/10/2025 8:30 AM EDT Clinical Support [facility] Hematology/BMT and Cellular Therapy Program [address] [phone] 03/10/2025 9:00 AM EDT Office Visit [facility] Hematology/BMT and Cellular Therapy Program [address] [phone] Isaura Wynn, DYE RANGE OPERATOR CLOTH 800 [facility] [address] [place] [phone] 03/10/2025 11:20 AM EDT Office Visit Pav Head, Neck & Respiratory 800 [facility], 2nd [place] [phone] Elsa Razo, DYE RANGE OPERATOR CLOTH [address] [place] [address] documented as of this encounter Visit Diagnoses Diagnosis Coronary artery disease involving [place] heart with angina pectoris, unspecified vessel or lesion type (CMS/HCC) documented in this encounter Additional Health Concerns Infection Onset Date Last Indicated Resolved Time Respiratory Rule-Out 11/03/2024 11/03/2024 025 5:17 PM EDT documented as of this encounter Care Teams Clerical Support Relationship Specialty Start Date End Date Zhao Harris MD [address] [place] [address] PCP - General 12/03/20 documented as of this encounter
--- OUTSIDE RECORDS SUMMARY | 2025-01-30 13:19 | XMS_ITS | Encounter Summary ---
Author Organization [facility] Address [address] [place] [address] Care Team Providers Care Lead Burner Helper Name Role Phone Zhao Harris MD Primary Care Provider [phone] Encounter Details Date Type Department Care Team (Late st Contact Info) Description 01/27/2025 Telephone [facility] A Interventional Radiology [address] [place] [address] Bandar Cleary, RN Social History Tobacco Use [...] drink first t manav in the morning (EYE-DIAMOND SIZER) to steady your nerves or to get [...] Appointment [facility] A Interventional Radiology [address] [place] [address] 02/10/2025 8:30 AM EDT Clinical Support [facility] CC Hematology/BMT and Cellular Therapy Program [address] [address] 02/10/2025 9:00 AM EDT Office Visit [facility] CC Hematology/BMT and Cellular Therapy Program [address] [address] Elaina Boss, ARAM 800 [facility] [address] [place] [address] 02/10/2025 10:30 AM EDT Appointment [facility] 1 [address] [place] [address] 02/11/2025 2:00 PM EDT Appointment [facility] 1 [address] [place] [address] 02/12/2025 2:00 PM EDT Appointment [facility] 1 [address] [place] [address] 02/13/2025 2:00 PM EDT Appointment [facility] 1 [address] [place] [address] 02/14/2025 2:00 PM EDT Appointment [facility]fusion [facility] 1 4 [place] [address] 03/10/2025 8:30 AM EDT Clinical Support [facility] Hematology/BMT and Cellular Therapy Program [address] [phone] 03/10/2025 9:00 AM EDT Office Visit [facility] CC Hematology/BMT and Cellular Therapy Program 750 [facility], [address] [place] [place] [phone] Isaura Wynn, ADMINISTRATIVE SERVICES SPECIALIST 800 [facility] [address] [place] [phone] 03/10/2025 11:20 AM EDT Office Visit Pav CC Head, Neck & Respiratory 800 [facility], 2nd [place] [phone] Elsa Razo, ADMINISTRATIVE SERVICES SPECIALIST [address] [place] [address] documented as of this encounter [...] documented as of this encounter Care Teams Lead Burner Helper Relationship Specialty Start Date End Date Zhao Harris MD [address] [place] [phone] PCP - General 12/03/20 documented as of this encounter
--- OUTSIDE RECORDS SUMMARY | 2025-01-30 13:19 | XMS_ITS | Encounter Summary ---
Author Organization [facility] Address [address] [place] [address] Care Team Providers Care Fusing Machine Tender Name Role Phone Zhao Harris MD Primary Care Provider [phone] Reason for Visit * Reason Comments Med Refill Encounter Details Date Type Department Care Team ([facility] Contact Info) Description 02/20/2022 Refill [facility] [place] [address] [facility], [address] [place] [address] Regina Hill, ARAM [address] [place] [address] Social History Tobacco Use Types [...] Encounters Date Type Department Care Team ([facility] Contact Info) Description 02/02/2025 9:30 AM EDT Appointment [facility] A Interventional Radiology [address] [place] [phone] 02/10/2025 8:30 AM EDT Clinical Support [facility] CC Hematology/BMT and Cellular Therapy Program [address] [place] [address] 02/10/2025 9:00 AM EDT Office Visit [facility] CC Hematology/BMT and Cellular Therapy Program [address] [place] [address] Elaina Boss, PA 800 [facility] [address] [phone] 02/10/2025 10:30 AM EDT Appointment [facility] 1 [address] [place] [phone] 02/11/2025 2:00 PM EDT Appointment [facility] 1 [address] [place] [phone] 02/12/2025 2:00 PM EDT Appointment [facility] 1 [address] [place] [address] 02/13/2025 2:00 PM EDT Appointment [facility] 1 [address] [place] [address] 02/14/2025 2:00 PM EDT Appointment [facility] 1 [address] [place] [address] 03/10/2025 8:30 AM EDT Clinical Support [facility] CC Hematology/BMT and Cellular Therapy Program [address] [phone] 03/10/2025 9:00 AM EDT Office Visit [facility] CC Hematology/BMT and Cellular Therapy Program [address] [phone] Isaura Wynn, COLLECTION TECHNICIAN 800 [facility] [address] [phone] 03/10/2025 11:20 AM EDT Office Visit Pav CC Head, Neck & Respiratory 800 [facility], 2nd [place] [phone] Elsa Razo, COLLECTION TECHNICIAN [address] [place] [phone] documented as of this encounter Visit Diagnoses Not on filedocumented in this encounter Additional Health Concerns Infection Onset Date Last Indicated Resolved Time Respiratory Rule-Out 11/03/2024 11/03/2024 025 5:17 PM EDT documented as of this encounter Care Teams Fusing Machine Tender Relationship Specialty Start Date End Date Zhao Harris MD [address] [place] [address] PCP - General 12/03/20 documented as of this encounter
[2025-01-30] MEDS: SODIUM CHLORIDE 0.9% 250ML BAG 250 ML IV (13:20)
[2025-01-30] MEDS: SODIUM CHLORIDE 0.9% 10ML FLUSH SYRINGE 10 ML IV (14:20)
== END 2025-01-30 14:25 | disposition home or self-care (01) ==
LOC: INF 13:12
PROVIDERS: PCP Family Medicine; Visit Provider Internal Medicine Medical Oncology
DX: D46.9 Myelodysplastic syndrome, unspecified (principal)
CPT/HCPCS: 36430; J1642; J7050; P9034

== ENCOUNTER 2025-02-03 08:07 | Outpatient (CLI) | payer MEDICARE, SELFPAY ==
--- OUTSIDE RECORDS SUMMARY | 2024-12-09 08:30 | XMS_ITS | Encounter Summary ---
Author Organization [facility] Address [address] [place] [address] Care Team Providers Care Field Sales Specialist Name Role Phone Zhao Harris MD Primary Care Provider [phone] Reason for Visit * Reason Comments Labs Nurse Visit Encounter Details Date Type Department Care Team ([facility] Contact Info) Description 12/09/2024 8:30 AM EDT Clinical Support PAV CC Hematology/BMT and Cellular Therapy Program [address] [place] [address] [place] [address] Social History Tobacco Use Types Packs/Day Years [...] drink first t manav in the morning (EYE-INK BLENDER) to steady your nerves or to get [...] Care Team (Late st Contact Info) Description 02/10/2025 8:30 AM EDT Clinical Support PAV CC Hematology/BMT and Cellular Therapy Program [address] [address] 02/10/2025 9:00 AM EDT Office Visit PAV Hematology/BMT and Cellular Therapy Program [address] [phone] Elaina Boss, ARAM 800 [facility] [address] [place] [phone] 02/10/2025 10:30 AM EDT Appointment PAV H Infusion 800 [place] [address] 02/11/2025 2:00 PM EDT Appointment [facility] Infusion Clinic 1 744 [place] [address] 02/12/2025 2:00 PM EDT Appointment [facility] Infusion Clinic 1 [address] [place] [address] 02/13/2025 2:00 PM EDT Appointment [facility] Infusion [facility] 1 [address] [place] [address] 02/14/2025 2:00 PM EDT Appointment [facility] Infusion [facility] 1 [address] [place] [address] 03/10/2025 8:30 AM EDT Clinical Support PAV Hematology/BMT and Cellular Therapy Program [address] [address] 03/10/2025 9:00 AM EDT Office Visit PAV CC Hematology/BMT and Cellular Therapy Program 750 [facility], [address] Fl[address] [place] [phone] Isaura Wynn, ROOFER APPRENTICE 800 [facility] 1st [place] [address] 03/10/2025 11:20 AM EDT Office Visit Pav CC Head, Neck & Respiratory 800 [facility], 2nd [place] [phone] Elsa Razo, ROOFER APPRENTICE 800 [place] [address] documented as of this encounter Visit Diagnoses [...] documented as of this encounter Care Teams Field Sales Specialist Relationship Specialty Start Date End Date Zhao Harris MD [address] [address] PCP - General 12/03/20 documented as of this encounter
--- OUTSIDE RECORDS SUMMARY | 2024-12-09 09:00 | XMS_ITS | Encounter Summary ---
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 Name Role Phone Zhao Harris MD Primary Care Provider + [phone] Reason for Visit * Reason Comments Procedure * Genetic Testing (Routine) - Authorized Specialty Diagnoses / Procedures Referred By Justice mcgee Referred To Contact Lab Diagnoses Myelodysplasia (myelodysplastic syndrome) (CMS/HCC) Procedures Leukemia/Lymphoma - Immunophenotyping by Flow Cytometry Virgen Vargas MD [address] [facility] [address] [address] Phone: tel: fax: Referral ID Status Reason Start Date Expiration Date V isits Requested Visits Authorized [id number] Authorized 11/18/2024 05/20/2026 1 1 Encounter Details Date Type Department Care Team (Latest Contact Info) Description 12/09/2024 9:00 AM EDT Procedure Visit [facility] Hematology/BMT and Cellular Therapy Program [address] [place] [address] Kierra Novak APRN [address] [facility] [address] [address] Myelodysplasia (myelodysplastic syndrome) (CMS/HCC) Social [...] drink first t manav in the morning (EYE-STERILE TECH) to steady your nerves or to get [...] yes Risks discussed: Bleeding, infection and pain [place] protocol: Procedure explained and questions answered to [...] Upcoming Encounters Date Type Department Care Team ([facility] st Contact Info) Description 02/10/2025 8:30 AM EDT Clinical Support [facility] Hematology/BMT and Cellular Therapy Program [address] [address] 02/10/2025 9:00 AM EDT Office Visit [facility] Hematology/BMT and Cellular Therapy Program [address] [phone] Elaina Boss PA 800 [facility] [address] [place] [phone] 02/10/2025 10:30 AM EDT Appointment [facility] Infusion [address] [place] [address] 02/11/2025 2:00 PM EDT Appointment [facility] [address] [place] [address] 02/12/2025 2:00 PM EDT Appointment [facility] [address] [place] [address] 02/13/2025 2:00 PM EDT Appointment [facility] [address] [place] [address] 02/14/2025 2:00 PM EDT Appointment [facility] [address] [place] [address] 03/10/2025 8:30 AM EDT Clinical Support [facility] Hematology/BMT and Cellular Therapy Program [address] [address] 03/10/2025 9:00 AM EDT Office Visit [facility] Hematology/BMT and Cellular Therapy Program [address] [phone] Isaura Wynn, MANAGER PMO 800 [facility] [address] [place] [phone] 03/10/2025 11:20 AM EDT Office Visit [facility] Head, Neck & Respiratory 800 [facility], [address] [place] [address] Elsa Razo, MANAGER PMO [address] [place] [phone] documented as of this encounter Procedures Procedure Name Priority Date/Time Associated Diagnosis Comments CYTOGENETICS TESTING, ONCOLOGY Routine 12/09/2024 10:15 AM EDT Myelodysplasia (myelodysplastic syndrome) ([facility]/HCC) CHROMOSOME KARYOTYPE, ONCOLOGY Routine 12/09/2024 10:15 AM EDT Myelodysplasia (myelodysplastic syndrome) ([facility]/HCC) LEUKEMIA/LYMPHOMA - IMMUNOPHENOTYPING BY FLOW [...] Bone Marrow 12/16/2024 5:[address] [facility] Clinical Indication Acute Myeloid Leukemia 12/16/2024 5:[address] [facility] Specimen Adequacy Adequate 025 5:[address] [facility] Chromosome Analysis Result Giemsa-banded metaphase cells from unstimulated bone marrow cultures showed the following chromosome pattern: 43~45,X,-Y,t(4;1 4)(q21;q32),add( 5)(q13),add(16)( q11.2),-17,add(2 0)(q11.2)[cp13]/ 46,XY[7] 12/16/2024 5:[address] [facility] [...] were observed on this patient's previous specimen [id number] and indicate persistent disease. Clinical correlation is recommended. Note: Per [employer] (CAP) requirement additional karyotypes were performed and charged due to the presence of clonal abnormalities. # cells counted = 20 # cells analyzed = 20 # cells karyotyped = 3 Band resolution: 400 12/16/2024 5:59 PM EDT [facility] Pathologist Signature Reviewed by: Mesfin Rae 12/16/2024 5:[address] [facility] Bone Marrow Non-blood Collection / Unknown 12/09/2024 10:15 AM EDT 12/09/2024 12:48 PM EDT us Virgen Vargas MD LAB CYTOGENETICS ORDERABLES F inal Result [facility] [address] [place] [address] * Leukemia/Lymphoma - Immunophenotyping by Flow Cytometry (12/09/2024 10:15 AM EDT) Clinical Indication AML 12/10/2024 8:51 AM [facility] Flow Cytometry Interpretation APPROXIMATELY 23% POPULATION OF CD34 POSITIVE MYELOID BLASTS EXPRESSING CD34, CD117, CD13, CD33, HLA-DR, PARTIAL CD7, VARIABLE CD123, PARTIAL CD38, AND MODERATE CD45, SEE COMMENT, BONE MARROW ASPIRATE. 12/10/2024 8:51 AM [facility] Comments Specimen viability is [...] surface light chains, CD123 12/10/2024 8:51 AM [facility] Disclaimer This test was developed and its performance characteristics determined by the [facility]. It has not been cleared or approved [...] on the report. 12/10/2024 8:51 AM EDT [facility] Pathologist Signature Reviewed by: Gerry Jensen MD 12/10/2024 8:[address] [facility] MRD Indicated Test Not Indicated 8:[address] [facility] Bone Marrow Specimen from bone marrow obtained by aspiration / Unknown Non-blood Collection / Unknown 12/09/2024 10:15 AM EDT 12/09/2024 11:28 AM EDT us Virgen Vargas MD LAB FLOW CYTOMETRY ORDERABLES Final Result [facility] [address] [place] [address] * Bone marrow exam (12/09/2024 10:15 AM EDT) Case Report Bone Marrow Case: [id number] Authorizing Provider: Virgen Vargas MD Collected: 12/09/2024 1015 Ordering Location: [facility] Hematology/BMT and Received: 12/09/2024 1145 Cellular Therapy Program Pathologist: Gerry Jensen MD Specimens: A) - Bone Marrow Aspirate, right B) - Bone Marrow Biopsy, right C) - Peripheral Blood for Bone Marrow 12/19/2024 5:[address] [facility] Cytogenetics [...] were observed on this patient's previous specimen [id number] and indicate persistent disease. 12/19/2024 5:[address] [facility] Addendum electronically signed by Gerry Jensen MD on 12/19/2024 at 1735 EDT Final Diagnosis PERIPHERAL BLOOD AND BONE MARROW, RIGHT POSTERIOR ILIAC CREST, (PERIPHERAL SMEAR, ASPIRATE SMEAR, AND CORE BIOPSY): - NORMOCELLULAR BONE MARROW WITH ERYTHROID HYPERPLASIA, VIRTUALLY ABSENT MATURING GRANULOPOIESIS, AND 14% BLASTS, SEE COMMENT. 12/19/2024 5:[address] [facility] at 1706 EDT Comment While by flow cytometric analysis blasts constitute 23% of cellularity, the majority of bone marrow cellularity consists of erythroid precursors that are removed by flow cytometry. This leads to the discrepancy between the percentage of blasts by flow cytometry and morphologic examination. Nonetheless, the findings are consistent with some residual disease. 12/19/2024 5:[address] [facility] Clinical Information AML s/p cycle 2 12/19/2024 5:[address] [facility] CBC [...] are decreased. 12/19/2024 5:[address] [facility] Bone Marrow Differential BONE MARROW DIFFERENTIAL: 400 cells Normal Patient Neutrophils 15-50 0 Metamyelocytes 4-19 0 Myelocytes 1-18 1 Promyelocytes 1-8 0 Blasts 0-2 14 Monocytes 0-5 3 Erythroid 16-38 76 Lymphocytes 3-24 1 Eosinophils 0-6 0 Basophils 0-2 0 Plasma cells 0-4 5 Other 12/19/2024 5:[address] [facility] Aspirate Smear The bone marrow [...] normal morphology. 12/19/2024 5:[address] [facility] Core Biopsy The core biopsy is small and shows 5 mm of a normocellular bone marrow with a cellularity of approximately 30% that is predominantly comprised of erythroid precursors. Erythropoiesis is left-shifted, but maturing. Maturing granulopoiesis is virtually absent. Myeloid cells almost entirely consists of immature precursors. Megakaryocytes are decreased and exhibit predominantly normal morphology. 12/19/2024 5:[address] [facility] Flow Cytometry Interpretation Flow cytometric analysis shows approximately 23% population of CD34 positive myeloid blasts expressing CD34, CD117, CD13, CD33, HLA-DR, partial CD7, variable CD123, partial CD38, and moderate CD45 ([id number]). 12/19/2024 5:35 PM T [facility] Gross Description B. RIGHT A single specimen is received in formalin labeled bone marrow biopsy right posterior iliac crest and consists of 1 piece(s) of red/white tissue measuring 0.7 cm in length 0.2 cm in diameter. The specimen is submitted in to Histology for decalcification and routine processing. Cold Time: <1m 12/19/2024 5:[address] [facility] Note: A resident was involved in the service. I attest I examined the relevant preparations for the specimens and confirmed the diagnosis or interpretation. 12/19/2024 5:[address] [facility] Bone [...] ed Result - Final Performing Organization Address City/State/[facility] Co de Phone Number [facility] [address] [place] [address] * BIOPSY BONE MARROW (12/09/2024 10:00 AM EDT) Narrative Kierra Novak APRN - 12/09/2024 10:00 AM EDT Kierra Novak APRN 12/09/2024 12:08 PM Biopsy bone marrow Date/Time: 12/09/2024 10:00 AM Performed by: Kierra Novak APRN Authorized by: Kierra Novak APRN Consent: Consent obtained: Written Consent given by: Patient Risks, benefits, and alternatives were discussed: yes Risks discussed: Bleeding, infection and pain [place] protocol: Procedure explained and questions answered to [...] ORDERABLE S Final Result Performing Organization Address [facility] de Phone Number BLOOD BANK [address] [place] [address] * Morphology (12/09/2024 8:45 AM EDT) Pathologist [facility] Elliptocytes/ Ovalocytes Present LAB HEMATOLOGY METHOD 12/09/2024 11:45 AM EDT [facility] RBC Morphology Slide Reviewed LAB HEMATOLOGY METHOD 12/09/2024 11:45 AM EDT [facility] Platelet Estimate Platelet smear estimate consistent with automated count LAB HEMATOLOGY METHOD 12/09/2024 11:45 AM EDT [facility] Blood Venous blood specimen / Unknown Venipuncture / Unknown 12/09/2024 8:45 AM EDT 12/09/2024 8:56 AM EDT Virgen Vargas MD LAB BLOOD ORDERABLES Final Re sult Performing Organization Address City/[facility] Co de Phone Number [facility] [address] [place] [address] * (ABNORMAL) Manual Differential (12/09/2024 8:45 AM EDT) Pathologist [facility] Blasts % 1 % LAB HEMATOLOGY METHOD 12/09/2024 11:45 AM EDT [facility] Promyelocytes % 0 % LAB HEMATOLOGY METHOD 12/09/2024 11:45 AM EDT [facility] Myelocytes % 0 % LAB HEMATOLOGY METHOD 12/09/2024 11:45 AM EDT [facility] Metamyelocytes % 0 % LAB HEMATOLOGY METHOD 12/09/2024 11:45 AM EDT [facility] Neutrophils % 10 % LAB HEMATOLOGY METHOD 12/09/2024 11:45 AM EDT [facility] Lymphocytes % 87 % LAB HEMATOLOGY METHOD 12/09/2024 11:45 AM EDT [facility] Reactive Lymphocytes % 0 % LAB HEMATOLOGY METHOD 12/09/2024 11:45 AM EDT [facility] Monocytes % 2 % LAB HEMATOLOGY METHOD 12/09/2024 11:45 AM EDT [facility] Eosinophils % 0 % LAB HEMATOLOGY METHOD 12/09/2024 11:45 AM EDT [facility] Basophils % 0 % LAB HEMATOLOGY METHOD 12/09/2024 11:45 AM EDT [facility] Blasts Absolute 0.01 10*3/UL LAB HEMATOLOGY METHOD 12/09/2024 11:45 AM EDT [facility] Promyelocytes Absolute 0.00 10*3/uL LAB HEMATOLOGY METHOD 12/09/2024 11:45 AM EDT [facility] Myelocytes Absolute 0.00 10*3/uL LAB HEMATOLOGY METHOD 12/09/2024 11:45 AM EDT [facility] Metamyelocytes Absolute 0.00 10*3/uL LAB HEMATOLOGY METHOD 12/09/2024 11:45 AM EDT [facility] Neutrophils Absolute 0.07(LL) 1.60 - 6.10 10*3/uL LAB HEMATOLOGY METHOD 12/09/2024 11:45 AM EDT [facility] Lymphocytes Absolute 0.59(L) 1.20 - 3.90 10*3/uL LAB HEMATOLOGY METHOD 12/09/2024 11:45 AM EDT [facility] Reactive Lymphocytes Absolute 0.00 10*3/uL LAB HEMATOLOGY METHOD 12/09/2024 11:45 AM EDT [facility] Monocytes Absolute 0.01(L) 0.30 - 0.90 10*3/uL LAB HEMATOLOGY METHOD 12/09/2024 11:45 AM EDT [facility] Eosinophils Absolute 0.00 0.00 - 0.50 10*3/uL LAB HEMATOLOGY METHOD 12/09/2024 11:45 AM EDT [facility] Basophils Absolute 0.00 0.00 - 0.10 10*3/uL LAB HEMATOLOGY METHOD 12/09/2024 11:45 AM EDT [facility] Blood Venous blood specimen / Unknown Venipuncture / Unknown 12/09/2024 8:45 AM EDT 12/09/2024 8:56 AM EDT Virgen Vargas MD LAB BLOOD ORDERABLES Final Re sult Performing Organization Address City/[facility]/ZIP Co de Phone Number [facility] [address] [place] [address] * Peripheral blood smear, pathologist interpretation (12/09/2024 8:45 AM EDT) Pathologist [facility] Clinical Diagnosis, Peripheral Smear AML under therapy LAB HEMATOLOGY METHOD 12/09/2024 11:[address] [facility] Interpretation , Peripheral Smear Pancytopenia with rare circulating blast. A resident was involved in the service. I attest I examined the relevant preparations for the specimens and confirmed the diagnosis or interpretation. 12/09/2024 11:[address] [facility] Pathologist Signature, Peripheral Smear 12/09/2024 11:[address] [facility] Comment:Reviewed by: Martha Lopez MD LAB CP ASR DISCLAIMER Yes 12/09/2024 11:[address] [facility] Blood Venous blood specimen / Unknown Venipuncture / Unknown 12/09/2024 8:45 AM EDT 12/09/2024 8:56 AM EDT Virgen Vargas MD LAB PATHOLOGY ORDERABLES Terri l Result Performing Organization Address City/[facility]/ZIP Co de Phone Number [facility] [address] [place] [address] * (ABNORMAL) Comprehensive metabolic panel (12/09/2024 8:45 AM EDT) Glucose, Plasma 103(H) 74 - 99 mg/dL 12/09/2024 9:[address] [facility] BUN, Plasma 9 8 - 23 mg/dL 12/09/2024 9:[address] [facility] Creatinine, Plasma 0.78 0.70 - 1.20 mg/dL 12/09/2024 9:[address] [facility] BUN/Creatinine Ratio 12 12/09/2024 9:[address] [facility] Sodium, Plasma 140 136 - 145 mmol/L 12/09/2024 9:[address] [facility] Potassium, Plasma 3.9 3.6 - 4.9 mmol/L 12/09/2024 9:[address] [facility] Chloride, Plasma 109(H) 97 - 107 mmol/L 12/09/2024 9:[address] [facility] CO2, Plasma 21(L) 22 - 29 mmol/L 12/09/2024 9:[address] [facility] Anion Gap 10 6 - 16 mmol/L 12/09/2024 9:[address] [facility] Total Calcium, Plasma 9.0 8.9 - 10.2 mg/dL 12/09/2024 9:[address] [facility] Total Protein 6.6 6.3 - 7.9 g/dL 12/09/2024 9:[address] [facility] Albumin, Plasma 3.9 3.5 - 5.2 g/dL 12/09/2024 9:[address] [facility] AST, Plasma 31 10 - 50 U/L 12/09/2024 9:[address] [facility] ALT, Plasma 37 10 - 50 U/L 12/09/2024 9:[address] [facility] Alkaline Phosphatase, Plasma 81 40 - 115 U/L 12/09/2024 9:[address] [facility] Total Bilirubin, Plasma 0.6 0.2 - 1.1 mg/dL 12/09/2024 9:[address] [facility] eGFRcr 96.5 mL/min/1.7 3m*2 12/09/2024 9:[address] [facility] Comment:Reported eGFRcr in m L/min/1.73m2 is based the CKD-EPI 2020 equation that does not use a race coefficient. Blood Venous blood specimen / Unknown Venipuncture / Unknown 12/09/2024 8:45 AM EDT 12/09/2024 9:01 AM EDT Virgen Vargas MD LAB BLOOD ORDERABLES Final Re sult [facility] [address] [place] [address] * (ABNORMAL) CBC and differential (12/09/2024 8:45 AM EDT) WBC Count 0.68(LL) 3.70 - 10.30 10*3/uL LAB HEMATOLOGY METHOD 12/09/2024 11:45 AM EDT [facility] RBC Count 2.34(L) 4.60 - 6.10 10*6/uL LAB HEMATOLOGY METHOD 12/09/2024 11:45 AM EDT [facility] HGB 7.5(L) 13.7 - 17.5 g/dL LAB HEMATOLOGY METHOD 12/09/2024 11:45 AM EDT [facility] HCT 20.6(L) 40.0 - 51.0 % LAB HEMATOLOGY METHOD 12/09/2024 11:45 AM EDT [facility] Platelet Count 24(L) 155 - 369 10*3/uL LAB HEMATOLOGY METHOD 12/09/2024 11:45 AM EDT [facility] MCV 88 79 - 98 fL LAB HEMATOLOGY METHOD 12/09/2024 11:45 AM EDT [facility] MCH 32.1(H) 26.0 - 32.0 pg LAB HEMATOLOGY METHOD 12/09/2024 11:45 AM EDT [facility] MCHC 36.4(H) 30.7 - 35.5 g/dL LAB HEMATOLOGY METHOD 12/09/2024 11:45 AM EDT [facility] RDW 17.1(H) 11.5 - 14.5 % LAB HEMATOLOGY METHOD 12/09/2024 11:45 AM EDT [facility] MPV 9.2 8.8 - 12.5 fL LAB HEMATOLOGY METHOD 12/09/2024 11:45 AM EDT [facility] nRBC 2.9(H) <=0.0 per 100 WBCs [...] MD LAB BLOOD ORDERABLES Final Re sult [facility] [address] [place] [address] documented in this encounter Visit Diagnoses Diagnosis [...] documented as of this encounter Care Teams [employer] Gas[employer] Relationship Specialty Start Date End Date Zhao Harris MD [address] [place] [address] PCP - General 12/03/20 documented as of this encounter
--- OUTSIDE RECORDS SUMMARY | 2024-12-09 13:30 | XMS_ITS | Encounter Summary ---
Author Organization [facility] Address [address] [place] [address] Care Team Providers Care Public Works Director Name Role Phone Zhao Harris MD Primary Care Provider [phone] Reason for Visit * Reason Comments Follow-up Encounter Details Date Type Department Care Team (Latest Contact Info) Description 12/09/2024 1:30 PM EDT Clinical Support [facility] 800 [facility], 2nd [place] [phone] Myelodysplasia (myelodysplastic syndrome) (CMS/HCC) (Primary Dx); Thrombocytopenia [...] drink first t manav in the morning (EYE-FITTER HAND) to steady your nerves or to [...] Upcoming Encounters Date Type Department Care Team ([facility] st Contact Info) Description 02/10/2025 8:30 AM EDT Clinical Support [facility] Hematology/BMT and Cellular Therapy Program 750 [facility], [address] [place] [address] [place] [address] 02/10/2025 9:00 AM EDT Office Visit [facility] CC Hematology/BMT and Cellular Therapy Program [address] [place] [phone] Elaina Boss, ARAM 800 [facility] [address] [phone] 02/10/2025 10:30 AM EDT Appointment PAV H Infusion 800 [place] [address] 02/11/2025 2:00 PM EDT Appointment [facility] 1 744 [place] [phone] 02/12/2025 2:00 PM EDT Appointment [facility] 1 [address] [place] [address] 02/13/2025 2:00 PM EDT Appointment [facility] 1 7[address] [place] [address] 02/14/2025 2:00 PM EDT Appointment [facility]fusion [facility] 1 4 [place] [address] 03/10/2025 8:30 AM EDT Clinical Support [facility] Hematology/BMT and Cellular Therapy Program [address] [phone] 03/10/2025 9:00 AM EDT Office Visit [facility] CC Hematology/BMT and Cellular Therapy Program [address] [phone] Isaura Wynn, FLATBED COMPANY DRIVER 800 [facility] [address] [place] [phone] 03/10/2025 11:20 AM EDT Office Visit Pav CC Head, Neck & Respiratory 800 [facility], 2nd [place] [phone] Elsa Razo, FLATBED COMPANY DRIVER 800 [place] [phone] documented as of this encounter Procedures Procedure Name Priority Date/Time Associated Diagnosis Comments PREPARE RBC Routine 12/09/2024 1:17 PM EDT Myelodysplasia (myelodysplastic syndrome) (CMS/HCC) Thrombocytopenia (CMS/HCC) documented in this encounter Results * Transfuse RBC, Irradiated (12/09/2024 3:57 PM EDT) us Kayli CHIU BLOOD TRANSFUSION ORDERA BLES Final Result * Prepare Leukocyte Reduced RBC: 1 Units, Irradiated (12/09/2024 1:17 PM EDT) Product Code [id number] BLOO D BANK Dispense Status Transfused BLOOD BANK Blood Expiration Date [id number] BLOOD BANK Unit Number [id number] B LOOD BANK Product Blood Type 9500 BLOOD BANK Blood Type O- BLOOD BANK Crossmatch Compatible BLOOD BANK Other Kayli CHIU BLOOD BANK PRODUCT ORDER VIKAS Final Result Performing Organization Address City/State/[facility] Co de Phone Number BLOOD BANK [address] documented in this encounter Visit Diagnoses [...] as of this encounter Care Teams Public Works Director Relationship Specialty Start Date End Date Zhao Hraris MD [address] [place] [address] PCP - General 12/03/20 documented as of this encounter
--- OUTSIDE RECORDS SUMMARY | 2024-12-11 08:30 | XMS_ITS | Encounter Summary ---
Author Organization [facility] Address [address] [place] [address] Care Team Providers Care Accounting Director Name Role Phone Zhao Harris MD Primary Care Provider [phone] Reason for Visit * Reason Comments Nurse Visit Labs Encounter Details Date Type Department Care Team (Latest Contact Info) Description 12/11/2024 8:30 AM EDT Clinical Support [facility] CC Hematology/BMT and Cellular Therapy Program [address] [place] [address] [place] [address] Myelodysplasia (myelodysplastic syndrome) (CMS/HCC) Social History Tobacco [...] drink first t manav in the morning (EYE-MICROBIOLOGICAL LAB TECHNICIAN) to steady your nerves or to [...] ([facility] st Contact Info) Description 02/10/2025 8:30 AM EDT Clinical Support [facility] Hematology/BMT and Cellular Therapy Program [address] [address] 02/10/2025 9:00 AM EDT Office Visit [facility] Hematology/BMT and Cellular Therapy Program [address] [address] Elaina Boss PA 800 [facility] [address] [place] [phone] 02/10/2025 10:30 AM EDT Appointment [facility] H Infusion [address] [place] [address] 02/11/2025 2:00 PM EDT Appointment [facility] In[facility] 1 [address] [place] [address] 02/12/2025 2:00 PM EDT Appointment [facility] 1 [address] [place] [address] 02/13/2025 2:00 PM EDT Appointment [facility] 1 [address] [place] [address] 02/14/2025 2:00 PM EDT Appointment [facility] 1 [address] [place] [address] 03/10/2025 8:30 AM EDT Clinical Support [facility] Hematology/BMT and Cellular Therapy Program [address] [address] 03/10/2025 9:00 AM EDT Office Visit [facility] CC Hematology/BMT and Cellular Therapy Program 750 [facility], [address] [place] [address] Isaura Wynn, GROUP HOME MANAGER 800 [facility] [address] [place] [address] 03/10/2025 11:20 AM EDT Office Visit Pav CC Head, Neck & Respiratory 800 [facility], 2nd [place] [address] Elsa Razo, GROUP HOME MANAGER [address] [place] [address] documented as of this encounter [...] LAB HEMATOLOGY METHOD 12/11/2024 10:53 AM EDT [facility] RBC Morphology Slide Reviewed LAB HEMATOLOGY METHOD 12/11/2024 10:53 AM EDT [facility] [employer] LAB Platelet Estimate Platelet smear estimate consistent with automated count LAB HEMATOLOGY METHOD 12/11/2024 10:53 AM EDT [facility] Blood Venous blood specimen / Unknown Venipuncture / Unknown 12/11/2024 8:38 AM EDT 12/11/2024 8:50 AM EDT Virgen Vargas MD LAB BLOOD ORDERABLES Final Re sult Performing Organization Address City/[facility]/ZIP Co de Phone Number [facility] [address] [place] [address] * Peripheral blood smear, pathologist interpretation (12/11/2024 8:38 AM EDT) Clinical Diagnosis, Peripheral Smear History of acute myeloid leukemia (recent bone marrow dated 12/09/2024 with 14% blasts) LAB HEMATOLOGY METHOD 12/11/2024 4:46 PM EDT [facility] Interpretation , Peripheral Smear Marked leukopenia with neutropenia and 1% circulating blasts. Dysplastic neutrophils (hypogranular) are noted. Moderate anemia and marked thrombocytopen ia. 12/11/2024 4:46 PM EDT [facility] Pathologist Signature, Peripheral Smear 12/11/2024 4:46 PM EDT [facility] Comment:Reviewed by: Omar Peralta MD Blood Venous blood specimen / Unknown Venipuncture / Unknown 12/11/2024 8:38 AM EDT 12/11/2024 8:50 AM EDT Virgen Vargas MD LAB PATHOLOGY ORDERABLES Terri l Result [facility] [address] [place] [address] * (ABNORMAL) Manual Differential (12/11/2024 8:38 AM EDT) Blasts % 1 % LAB HEMATOLOGY METHOD 12/11/2024 10:53 AM EDT [facility] Promyelocytes % 0 % LAB HEMATOLOGY METHOD 12/11/2024 10:53 AM EDT [facility] Myelocytes % 0 % LAB HEMATOLOGY METHOD 12/11/2024 10:53 AM EDT [facility] Metamyelocytes % 0 % LAB HEMATOLOGY METHOD 12/11/2024 10:53 AM EDT [facility] Neutrophils % 4 % LAB HEMATOLOGY METHOD 12/11/2024 10:53 AM EDT [facility] Lymphocytes % 90 % LAB HEMATOLOGY METHOD 12/11/2024 10:53 AM EDT [facility] Reactive Lymphocytes % 3 % LAB HEMATOLOGY METHOD 12/11/2024 10:53 AM EDT [facility] Monocytes % 2 % LAB HEMATOLOGY METHOD 12/11/2024 10:53 AM EDT [facility] Eosinophils % 0 % LAB HEMATOLOGY METHOD 12/11/2024 10:53 AM EDT [facility] Basophils % 0 % LAB HEMATOLOGY METHOD 12/11/2024 10:53 AM EDT [facility] Blasts Absolute 0.01 10*3/UL LAB HEMATOLOGY METHOD 12/11/2024 10:53 AM EDT [facility] Promyelocytes Absolute 0.00 10*3/uL LAB HEMATOLOGY METHOD 12/11/2024 10:53 AM EDT [facility] Myelocytes Absolute 0.00 10*3/uL LAB HEMATOLOGY METHOD 12/11/2024 10:53 AM EDT [facility] Metamyelocytes Absolute 0.00 10*3/uL LAB HEMATOLOGY METHOD 12/11/2024 10:53 AM EDT [facility] Neutrophils Absolute 0.02(LL) 1.60 - 6.10 10*3/uL LAB HEMATOLOGY METHOD 12/11/2024 10:53 AM EDT [facility] Lymphocytes Absolute 0.55(L) 1.20 - 3.90 10*3/uL LAB HEMATOLOGY METHOD 12/11/2024 10:53 AM EDT [facility] Reactive Lymphocytes Absolute 0.02 10*3/uL LAB HEMATOLOGY METHOD 12/11/2024 10:53 AM EDT [facility] Monocytes Absolute 0.01(L) 0.30 - 0.90 10*3/uL LAB HEMATOLOGY METHOD 12/11/2024 10:53 AM EDT [facility] Eosinophils Absolute 0.00 0.00 - 0.50 10*3/uL LAB HEMATOLOGY METHOD 12/11/2024 10:53 AM EDT [facility] Basophils Absolute 0.00 0.00 - 0.10 10*3/uL LAB HEMATOLOGY METHOD 12/11/2024 10:53 AM EDT [facility] Blood Venous blood specimen / Unknown Venipuncture / Unknown 12/11/2024 8:38 AM EDT 12/11/2024 8:50 AM EDT us Virgen Vargas MD LAB BLOOD ORDERABLES Final Re sult [facility] [address] [place] [address] * (ABNORMAL) CBC and differential (12/11/2024 8:38 AM EDT) WBC Count 0.61(LL) 3.70 - 10.30 10*3/uL LAB HEMATOLOGY METHOD 12/11/2024 10:54 AM EDT [facility] RBC Count 2.80(L) 4.60 - 6.10 10*6/uL LAB HEMATOLOGY METHOD 12/11/2024 10:54 AM EDT [facility] HGB 8.9(L) 13.7 - 17.5 g/dL LAB HEMATOLOGY METHOD 12/11/2024 10:54 AM EDT [facility] HCT 25.1(L) 40.0 - 51.0 % LAB HEMATOLOGY METHOD 12/11/2024 10:54 AM EDT [facility] Platelet Count 11(LL) 155 - 369 10*3/uL LAB HEMATOLOGY METHOD 12/11/2024 10:54 AM EDT [facility] MCV 90 79 - 98 fL LAB HEMATOLOGY METHOD 12/11/2024 10:54 AM EDT [facility] MCH 31.8 26.0 - 32.0 pg LAB HEMATOLOGY METHOD 12/11/2024 10:54 AM EDT [facility] MCHC 35.5 30.7 - 35.5 g/dL LAB HEMATOLOGY METHOD 12/11/2024 10:54 AM EDT [facility] RDW 16.2(H) 11.5 - 14.5 % LAB HEMATOLOGY METHOD 12/11/2024 10:54 AM EDT [facility] MPV 12.3 8.8 - 12.5 fL LAB HEMATOLOGY METHOD 12/11/2024 10:54 AM EDT [facility] nRBC 4.9(H) <=0.0 per 100 WBCs LAB HEMATOLOGY METHOD 12/11/2024 10:54 AM EDT [facility] Differential Type Manual LAB HEMATOLOGY METHOD 12/11/2024 10:54 AM EDT [facility] Blood Venous blood specimen / Unknown Venipuncture / Unknown 12/11/2024 8:38 AM EDT 12/11/2024 8:50 AM EDT [facility] - 12/11/2024 10:54 AM EDT [...] MD LAB BLOOD ORDERABLES Final Re sult [facility] [address] [place] [address] * (ABNORMAL) Comprehensive Metabolic Panel, Plasma (12/11/2024 8:38 AM EDT) Glucose, Plasma 105(H) 74 - 99 mg/dL 12/11/2024 9:19 AM EDT [facility] BUN, Plasma 10 8 - 23 mg/dL 12/11/2024 9:19 AM EDT [facility] Creatinine, Plasma 0.75 0.70 - 1.20 mg/dL 12/11/2024 9:19 AM EDT [facility] BUN/Creatinine Ratio 13 12/11/2024 9:19 AM EDT [facility] Sodium, Plasma 140 136 - 145 mmol/L 12/11/2024 9:19 AM EDT [facility] Potassium, Plasma 4.1 3.6 - 4.9 mmol/L 12/11/2024 9:19 AM EDT [facility] Chloride, Plasma 110(H) 97 - 107 mmol/L 12/11/2024 9:19 AM EDT [facility] CO2, Plasma 22 22 - 29 mmol/L 12/11/2024 9:19 AM EDT [facility] Anion Gap 8 6 - 16 mmol/L 12/11/2024 9:19 AM EDT [facility] Total Calcium, Plasma 9.1 8.9 - 10.2 mg/dL 12/11/2024 9:19 AM EDT [facility] Total Protein 6.9 6.3 - 7.9 g/dL 12/11/2024 9:19 AM EDT [facility] Albumin, Plasma 4.0 3.5 - 5.2 g/dL 12/11/2024 9:19 AM EDT [facility] AST, Plasma 38 10 - 50 U/L 12/11/2024 9:19 AM EDT [facility] ALT, Plasma 40 10 - 50 U/L 12/11/2024 9:19 AM EDT [facility] Alkaline Phosphatase, Plasma 86 40 - 115 U/L 12/11/2024 9:19 AM EDT [facility] Total Bilirubin, Plasma 0.6 0.2 - 1.1 mg/dL 12/11/2024 9:19 AM EDT [facility] eGFRcr 97.7 mL/min/1.7 3m*2 12/11/2024 9:19 AM EDT [facility] Comment:Reported eGFRcr in m L/min/1.73m2 is based the CKD-EPI 2020 equation that does not use a race coefficient. Blood Venous blood specimen / Unknown Venipuncture / Unknown 12/11/2024 8:38 AM EDT 12/11/2024 8:50 AM EDT us Virgen Vargas MD LAB BLOOD ORDERABLES Final Re sult [facility] [address] [place] [address] documented in this encounter Visit Diagnoses Diagnosis [...] documented as of this encounter Care Teams Accounting Director Relationship Specialty Start Date End Date Zhao Harris MD [address] [place] [address] PCP - General 12/03/20 documented as of this encounter
--- OUTSIDE RECORDS SUMMARY | 2024-12-11 09:00 | XMS_ITS | Encounter Summary ---
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) Virgen Vargas MD 800 [facility] [address] [address] Phone: tel: fax: Referral ID Status Reason Start Date Expiration Date V isits Requested Visits Authorized [id number] Closed Specialty Services Required 12/11/2024 06/12/2026 1 1 Encounter Details Date Type Department Care Team (Latest Contact Info) Description 12/11/2024 9:00 AM EDT Office Visit [facility] Hematology/BMT and Cellular Therapy Program [address] [place] [phone] Virgen Vargas MD 800 [facility] [address] [address] Myelodysplasia (myelodysplastic syndrome) (CMS/HCC) (Primary Dx); Encounter for antineoplastic chemotherapy; 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); Pancytopenia due to chemotherapy (CMS/HCC); Immunosuppressed due to chemotherapy Social History Tobacco Use Types Packs/Day Years [...] drink first t manav in the morning (EYE-TURN LASTER) to steady your nerves or to get [...] Sign Reading Time Taken Comments Blood Pressure 130/82 12/11/2024 8:55 AM EDT Pulse 75 12/11/2024 8:55 AM EDT Temperature 36.8 C (98.3 F) 12/11/2024 8:55 AM EDT Respiratory Rate 16 12/11/2024 8:55 AM EDT Oxygen Saturation 99% 12/11/2024 8:55 AM EDT Inhaled Oxygen Concentration - - Weight 85.5 kg (188 lb 7.9 oz) 12/11/2024 8:55 A M EDT Height 170.2 cm (5' 7.01 ) 12/11/2024 8:55 AM ED T Body Mass Index 29.52 12/11/2024 8:55 AM EDT documented in this encounter Miscellaneous Notes * Progress Notes - Virgen Vargas MD - 12/11/2024 9:00 AM EDT HEMATOLOGY ONCOLOGY NOTE Patient ID: [...] a preserved mata-T cell profile with a CD4:CU9kyzdc of 2.7:1. Polyclonal B-cells (3%) and a small plasma cell population (0.6%) were also identified. Cytogenetics: Normal. Molecular Testing: PCR for NPM1 and FLT3 mutations are negative. Next-generation sequencing (NGS) myeloid panel: ASXL1 - [id number] - VAF 25% TP53 - p.[id number] - VAF 36% U2AF1 - p.[id number] - VAF 33% 10/20/2024- started treatment with cycle 1 of azacytidine and venetoclax. 11/10/2024- bone marrow: Morphology: acute myeloid leukemia with 35% blasts. Cytogenetics: 43~46,X,-Y,t(4;14)(q21;q32),add(5)(q13),add(16)(q11.2),-17,add(20)(q11.2),+mar[c p14]/46,XY[6] 11/18/2024- started treatment with cycle 2 of azacytidine and venetoclax. 12/09/2024- bone marrow exam normocellular bone marrow with erythroid hyperplasia, virtually absent maturing granulopoiesis, and 14% blasts. Myelodysplasia (myelodysplastic syndrome) (CMS/HCC) 09/29/2024 Initial Diagnosis [...] mg (11/22/2024), 150 mg (11/23/2024), 150 mg (10/26/2024), 150 mg (11/24/2024) Past Medical History: Diagnosis Date Arteriosclerotic cardiovascular disease Cancer (CMS/HCC) Chronic stable angina (CMS/HCC) Hypertension Past Surgical History: Procedure Laterality Date JOINT REPLACEMENT Left left shoulder TOTAL KNEE ARTHROPLASTY Right after broken patella Family History Problem Relation Name Age of Onset Diabetes Other Heart attack Other Social History Tobacco Use Smoking status: Every Day Average packs/day: 1.5 packs/day for 15.0 years (22.5 ttl pk-yrs) Types: Cigarettes Start date: 1994 Passive exposure: Current Smokeless tobacco: Never Vaping Use Vaping status: Never Used Substance Use Topics Alcohol use: Not Currently Alcohol/week: 6.0 standard drinks of alcohol Types: 6 Cans of beer per week Drug use: Never Interval History: Hugo Lyons feels well overall except for continued fatigue. 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 He continues to have rash on his arms, an has been using hydrocortisone cream and Benadryl Review of systems: 14- point ROS is reviewed and negative except in HPI. Objective Physical Exam: Vital Signs for this encounter: BSA: 2.01 meters squared Visit Vitals BP 130/82 (BP Location: Left arm, Patient Position: Sitting, BP Cuff Size: Adult) Pulse 75 Temp 36.8 ??C (98.3 ??F) (Temporal) Resp 16 Ht 1.702 m (5' 7.01 ) Wt 85.5 kg (188 lb 7.9 oz) SpO2 99% BMI 29.52 kg/m?? Smoking Status Every Day BSA 2.01 m?? GENERAL: appears stated age, no acute distress HEENT anicteric sclerae without conjunctival injection NECK: Trachea appears midline RESP: No increased work of breathing on room air. No wheezes or crackles CARDIAC: regular rate and rhythm. Normal S1, S2. No murmurs. MUSK: no joint swelling or deformity. GI: no signs of cachexia, abdomen soft, lax, not tender. No masses SKIN: Erythematous scaly rash on upper arms NEURO: Alert and awake. 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 Hugo Lyons is a 69-year-old male with a history of progressive cytopenias dating back to 2019, culminating in a diagnosis of myelodysplastic syndrome with increased blasts-2 (MDS-IB2) in August 2024, with 15-17% blasts, multilineage dysplasia, and high-risk mutations including TP53 (VAF 36%), ASXL1, and U2AF1. Initial cytogenetics were normal. He was started on azacitidine and venetoclax o n 10/20/2024. A follow-up bone marrow on 11/10/2024 confirmed transformation to acute myeloid leukemia (AML) with 35% blasts and complex cytogenetics including t(4;14), add(5q), -17, and marker chromosomes. Despite a second cycle of therapy, his most recent marrow on 12/09/2024 showed persistent disease with 14% blasts and absent granulopoiesis, indicating suboptimal response. I discussed with Mr. Lyons the significance of his leukemia. His disease is characterized by high-risk genetic mutations, particularly the TP53 mutation, which is associated with very poor prognosis, limited response to standard therapies, and a high likelihood of relapse. Unfortunately, despite completing two cycles of azacitidine and venetoclax, he has had only a partial response with persistent disease, indicating treatment-refractory leukemia. As most responses to HMA/venetoclax occur within the first two cycles, the likelihood of meaningful clinical benefit from continued therapy is low. We reviewed the limited options moving forward. The first is proceeding with a third cycle of azacitidine and venetoclax, with the hope of a delayed response given the modest decrease in blast percentage. However, we discussed that this is uncommon and responses beyond two cycles are rare. The second option is intensive induction chemotherapy, which is associated with significant toxicity, requires prolonged hospitalization, and is less likely to induce a durable remission in the context of VY94-[id number] AML. The third, and most promising, option would be enrollment in a clinical trial, ideally one that targets TP53- mutant disease or incorporates novel agents. Unfortunately, there are no active trials available locally or at [facility], but I have reached out to Dr. Fernandes at [facility] to explore any opportunities there. We will also pursue referrals to other institutions with active investigational programs. Mr. Lyons expressed strong interest in p articipating in clinical trials, and we will prioritize this path. If no clinical trial options are identified in time, Mr. Lyons prefers to proceed with cycle 3 of azacitidine/venetoclax next week as a bridge therapy. We also briefly discussed allogeneic stem celltransplantation; however, he must first achieve a remission to be eligible. Given his age, lack of response to current therapy, and TP53 mutation, we acknowledged that the benefit of transplant may be limited and associated with significant risks. Headaches- CT head in 11/03/24 shows no intracranial abnormalities. Resolved Erythematous scaly rash on upper arms. Continue topical hydrocortisone and diphenhydramine Pancytopenia related to leukemia/MDS. Plan CBC x three times/week and transfuse PRBCs if Hb < 8 (due to symptomatic anemia and history of CAD) or platelets < 10. Use only leukoreduced and irradiated blood products. 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 Plan to continue prophylactic posaconazole, acyclovir, and levofloxacin Coronary artery disease with stable angina. Underwent cardiac stress testing and showed a small area of active ischemia and he was started on Imdur, but now is off it. Agree with holding ASA due to thrombocytopenia. Atorvastatin will be switched to rosuvastatin due to DDI between posaconazole and atorvastatin. He will need cardiac clearance prior to allogenic transplant. Tobacco and alcohol use. Started nicotine replacement. Stressed the need to stop smoking and reducealcohol intake if BMT would be an option in the future. I spent 65 minutes in reviewing the chart, laboratory investigations, radiology, evaluating the patient, in discussions with the patient and their family and other team members and in completing the documentation. Virgen Vargas M.D. Director [facility] Division of Hematology/BMT [facility] [1] Current Outpatient Medications: acyclovir (Zovirax) 800 MG tablet, Take 1 tablet (800 mg) by mouth in the morning and 1 tablet (800mg) before bedtime., Disp: 60 tablet, Rfl: 3 bisoprolol (Zebeta) 5 MG tablet, Take 1 tablet (5 mg) by mouth daily., Disp: 90 tablet, Rfl: 3 hydrocortisone 2.5 % cream, Apply 1 Application topically as needed for rash., Disp: 20 g, Rfl: 0 levoFLOXacin (Levaquin) 500 MG tablet, Take 1 tablet (500 mg) by mouth daily., Disp: 30 tablet, Rfl: 3 lidocaine-prilocaine (Emla) 2.5-2.5 % cream, Apply 1 inch cream to port site and cover with a dressing 60 minutes prior to being accessed., Disp: 30 g, Rfl: 2 posaconazole (Noxafil) [address] tablet, Take [...] for constipation., Disp: 30 tablet, Rfl: 3 HYDROcodone-acetaminophen ([place]wood) 5-325 MG tablet, Take 1 tablet by mouth every 6 hours as needed. (Patient not taking: Reported on 12/11/2024), Disp: , Rfl: nitroglycerin (Nitrostat) 0.4 MG SL tablet, Place 1 tablet (0.4 mg) under the tongue every 5 (five)minutes as needed for chest pain. (Patient not taking: Reported on 12/11/2024), Disp: 10 tablet, Rfl: 11 venetoclax (Venclexta) 10 MG tablet, Take 2 tablets by mouth daily. Days 1-14. Take with 50 mg tablets for a total of 70 mg daily (Patient not taking: Reported on 12/11/2024), Disp: 28 tablet, Rfl: 0 venetoclax (Venclexta) 50 MG tablet, Take 1 tablet by mouth daily. Days 1-14 (Patient not taking: Reported on 12/11/2024), Disp: 14 tablet, Rfl: 0 documented in this encounter Plan of Treatment Upcoming Encounters Date Type Department Care Team (Late st Contact Info) Description 02/10/2025 8:30 AM EDT Clinical Support [facility] Hematology/BMT and Cellular Therapy Program [address] [address] 02/10/2025 9:00 AM EDT Office Visit [facility] Hematology/BMT and Cellular Therapy Program [address] [phone] Elaina Boss, ARAM 800 [facility] [address] [place] [phone] 02/10/2025 10:30 AM EDT Appointment PAV Infusion [address] [place] [address] 02/11/2025 2:00 PM EDT Appointment [facility] Infusion [facility] 1 [address] [place] [address] 02/12/2025 2:00 PM EDT Appointment [facility] 1 [address] [place] [address] 02/13/2025 2:00 PM EDT Appointment [facility] 1 [address] [place] [address] 02/14/2025 2:00 PM EDT Appointment [facility] 1 [address] [place] [address] 03/10/2025 8:30 AM EDT Clinical Support [facility] Hematology/BMT and Cellular Therapy Program [address] [phone] 03/10/2025 9:00 AM EDT Office Visit [facility] Hematology/BMT and Cellular Therapy Program [address] [phone] Isaura Wynn, ESTRELLA 800 [facility] [address] [place] [phone] 03/10/2025 11:20 AM EDT Office Visit Pav Head, Neck & Respiratory 800 [facility], 2nd [place] [phone] Elsa Razo, BILL OF MATERIALS CLERK [address] [place] [address] documented as of this encounter Visit Diagnoses Diagnosis Myelodysplasia (myelodysplastic syndrome) (CMS/HCC)- Primary Myelodysplastic syndrome, unspecified Encounter for antineoplastic chemotherapy 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) Pancytopenia due to chemotherapy (CMS/HCC) Immunosuppressed due to chemotherapy documented in this encounter Additional Health Concerns Assessment Noted Time PHQ-9 Depression Total Score: 0 09/11/19 25 9:15 AM EST A fall risk assessment has been complete d for the patient 12/11/2024 2:38 PM EDT A Body Mass Index follow-up plan has been documented for the patient 12/11/2024 3:05 PM EDT documented as of this encounter Care Teams In Store Demonstrator Relationship Specialty Start Date End Date Zhao Harris MD [address] [place] [address] [phone] PCP - General 12/03/20 documented as of this encounter
--- OUTSIDE RECORDS SUMMARY | 2024-12-11 13:00 | XMS_ITS | Encounter Summary ---
Author Organization [facility] Address [address] [place] [address] Care Team Providers Care Assembly Cleaner Name Role Phone Zhao Harris MD Primary Care Provider [phone] Encounter Details Date Type Department Care Team (Latest Contact Info) Description 12/11/2024 1:00 PM EDT Clinical Support [facility] Cancer Acute Treatment [facility] [address] 2nd [place] [address] Myelodysplasia (myelodysplastic syndrome) (CMS/HCC) (Primary Dx); Thrombocytopenia [...] drink first t manav in the morning (EYE-REAL ESTATE CLERK) to steady your nerves or to [...] Support [facility]AV Hematology/BMT and Cellular Therapy Program [address] [place] [address] [place] [address] 02/10/2025 9:00 AM EDT Office Visit PAV CC Hematology/BMT and Cellular Therapy Program [address] [phone] Elaina Boss, PA 800 [facility] [address] [place] [phone] 02/10/2025 10:30 AM EDT Appointment PAV Infusion 800 [place] [address] 02/11/2025 2:00 PM EDT Appointment [facility] Infusion Clinic 1 [address]44 [place] [address] 02/12/2025 2:00 PM EDT Appointment [facility] Infusion [facility] 1 [address] [place] [address] 02/13/2025 2:00 PM EDT Appointment [facility]fusion [facility] 1 [address] [place] [address] 02/14/2025 2:00 PM EDT Appointment [facility] Infusion [facility] 1 [address] [place] [address] 03/10/2025 8:30 AM EDT Clinical Support [facility] Hematology/BMT and Cellular Therapy Program [address] [phone] 03/10/2025 9:00 AM EDT Office Visit PAV Hematology/BMT and Cellular Therapy Program [address] [phone] Isaura Wynn, HARDSCAPE FOREMAN 800 [facility] [address] [place] [phone] 03/10/2025 11:20 AM EDT Office Visit Pav Head[facility] Neck & Respiratory 800 [facility], 2nd [place] [phone] Elsa Razo, HARDSCAPE FOREMAN 800 [place] [address] documented as of this encounter [...] (ABNORMAL) Platelet count (12/11/2024 2:04 PM EDT) Pathologist [facility] Platelet Count 35(L) 155 - 369 10*3/uL LAB HEMATOLOGY METHOD 12/11/2024 2:37 PM EDT [facility] Blood Venous blood specimen / Unknown Venipuncture / Unknown 12/11/2024 2:04 PM EDT 12/11/2024 2:34 PM EDT Glenroy Kim MD LAB BLOOD ORDERABLES Fi nal Result Performing Organization Address City/[facility] Co de Phone Number HEALTHCARE LAB 800 [place] [address] * Prepare Leukocyte Reduced Platelets: 1 Units (12/11/2024 12:57 PM EDT) Pathologist [facility] Product Code [id number] CH BLOO D BANK Dispense Status Transfused BLOOD BANK Blood Expiration Date [id number] BLOOD BANK Unit Number [id number] CH B LOOD BANK Product Blood Type 6200 BLOOD BANK Blood Type A+ BLOOD BANK Blood Venous blood specimen / Unknown Kayli CHIU BLOOD BANK PRODUCT ORDER VIKAS Final Result Performing Organization Address City/[facility] Co de Phone Number BLOOD BANK [address] documented in this encounter Visit Diagnoses [...] documented as of this encounter Care Teams Assembly Cleaner Relationship Specialty Start Date End Date Zhao Harris MD [address] [place] [address] PCP - General 12/03/20 documented as of this encounter
--- OUTSIDE RECORDS SUMMARY | 2024-12-11 14:30 | XMS_ITS | Encounter Summary ---
Author Organization [facility] Address [address] [place] [address] Care Team Providers Care Education Finance Processor Name Role Phone Zhao Harris MD Primary Care Provider [phone] Reason for Visit * Consultation (Routine) - Closed Specialty Diagnoses / Procedures Referred By Contact Referred To Contact Interventional Radiology Diagnoses Myelodysplasia (myelodysplastic syndrome) (CMS/HCC) Mckinley Lee MD [address] [place] [address] Phone: tel:[phone] fax:[phone] [facility] Vascular Interventional Radiology [address] [facility] [address] [place] [address] Phone: tel: Referral ID Status Reason Start Date Expiration Date V isits Requested Visits Authorized [id number] Closed Specialty Services Required 12/01/2024 06/02/2026 1 1 Encounter Details Date Type Department Care Team (Latest Contact Info) Description 12/11/2024 2:30 PM EDT Office Visit [facility] Vascular Interventional Radiology [address] [facility] Room [address] [place] [phone] Judy Leung APRN, SHEEBA [address] [place] [address] Port-A-Cath in place (Primary Dx); [...] drink first t manav in the morning (EYE-TRAILER MECHANIC) to steady your nerves or to [...] Orders * Progress Notes - Judy Leung, QUALITY ASSURANCE LAB TECHNICIAN, DNP - 12/11/2024 2:30 PM EDT Images [...] been accessed. He is being referred to [facility] for possible trials. Allergies: Patient [...] for port placement. New AML, starting chemotherapy. Book Retailer: Mckinley Lee MD Secondary Breeding Manager: Dr. David Holt Rad Dose: 6 mGy [...] was placed supine on the fluoro table. Pattern Grader Supervisor ultrasonography revealed the vein to be [...] with no evidence of complication. Device: 6 Kiswahili port catheter cut to length of 25 [...] placement on 12/01/24 - Being referred to [facility] for possible trials PLAN: - Port accessed in clinic today and functioning well - Denies fever or chills; no drainage, swelling at site - Instructed to call with any signs of infection or malfunction - Return to [facility] PRN Medical Decision Making/Plan: Diagnoses and all orders for this visit: Port-A-Cath in place - heparin flush (porcine) 100 UNIT/ML injection 500 Units Myelodysplasia (myelodysplastic syndrome) (CMS/HCC) - Discharge Ambulatory referral to [facility] Clinic I spent 35 minutes on this [...] daily., Disp: 90 tablet, Rfl: 3 HYDROcodone-acetaminophen ([place]) 5-325 MG tablet, Take 1 tablet by [...] Hematology/BMT and Cellular Therapy Program [address] [address] 02/10/2025 9:00 AM EDT Office Visit PAV Hematology/BMT and Cellular Therapy Program [address] [phone] Elaina Boss PA [address] [facility] [address] [place] [phone] 02/10/2025 10:30 AM EDT Appointment PAV H Infusion [address] [place] [address] 02/11/2025 2:00 PM EDT Appointment [facility] Infusion Clinic 1 [address] [place] [address] 02/12/2025 2:00 PM EDT Appointment [facility]fusion [facility] 1 [address] [place] [address] 02/13/2025 2:00 PM EDT Appointment [facility] Infusion [facility] 1 [address] [place] [address] 02/14/2025 2:00 PM EDT Appointment [facility] Infusion [facility] 1 [address] [place] [address] 03/10/2025 8:30 AM EDT Clinical Support PAV CC Hematology/BMT and Cellular Therapy Program [address] [place] [address] 03/10/2025 9:00 AM EDT Office Visit P[facility] CC Hematology/BMT and Cellular Therapy Program [address] [phone] Isaura Wynn, QUALITY ASSURANCE LAB TECHNICIAN 800 [facility] [address] [place] [phone] 03/10/2025 11:20 AM EDT Office Visit Pav CC Head, Neck & Respiratory 800 [facility], 2nd [place] [phone] Elsa Razo, QUALITY ASSURANCE LAB TECHNICIAN [address] [place] [address] documented as of this encounter Procedures Procedure [...] 1:13 PM EDT 12/12/2024 8:43 AM EDT Judy Leung APRN, DNP LAB BLOOD BANK TEST ORDDiane KIRAN Final Result Performing Organization Address City/State/[facility] Co de Phone Number BLOOD BANK [address] [place] [address], documented in this encounter Visit Diagnoses Diagnosis [...] as of this encounter Care Teams Education Finance Processor Relationship Specialty Start Date End Date Zhao Harris MD [address] [place] [address] PCP - General 12/03/20 documented as of this encounter
--- OUTSIDE RECORDS SUMMARY | 2024-12-16 08:00 | XMS_ITS | Encounter Summary ---
Author Organization [facility] Address [address] [place] [address] Care Team Providers Care Associate Project Manager Name Role Phone Zhao Harris MD Primary Care Provider [phone] Reason for Visit * Reason Comments Labs Nurse Visit Encounter Details Date Type Department Care Team ([facility] Contact Info) Description 12/16/2024 8:00 AM EDT Clinical Support PAV CC Hematology/BMT and Cellular Therapy Program [address] [place] [address] [place] [address] Social History Tobacco Use Types Packs/Day Years [...] drink first t manav in the morning (EYE-TAPPER BIT) to steady your nerves or to get [...] CC Hematology/BMT and Cellular Therapy Program [address] [address] 02/10/2025 9:00 AM EDT Office Visit PAV Hematology/BMT and Cellular Therapy Program [address] [address] Elaina Boss, ARAM 800 [facility] [address] [place] [address] 02/10/2025 10:30 AM EDT Appointment PAV H Infusion 800 [place] [address] 02/11/2025 2:00 PM EDT Appointment [facility] Infusion Clinic 1 [address] [place] [address] 02/12/2025 2:00 PM EDT Appointment [facility] Infusion [facility] 1 [address] [place] [address] 02/13/2025 2:00 PM EDT Appointment [facility] Infusion [facility] 1 [address] [place] [address] 02/14/2025 2:00 PM EDT Appointment [facility] Infusion [facility] 1 [address] [place] [address] 03/10/2025 8:30 AM EDT Clinical Support PAV Hematology/BMT and Cellular Therapy Program [address] [address] 03/10/2025 9:00 AM EDT Office Visit PAV CC Hematology/BMT and Cellular Therapy Program 750 [facility], [address] [place] [address] Isaura Wynn, LIQUID COMPOUNDER 800 [facility] [address] [place] [address] 03/10/2025 11:20 AM EDT Office Visit Pav CC Head, Neck & Respiratory 800 [facility], 2nd [place] [address] Elsa Razo, LIQUID COMPOUNDER 800 [place] [address] documented as of this encounter Visit Diagnoses [...] documented as of this encounter Care Teams Associate Project Manager Relationship Specialty Start Date End Date Zhao Harris MD [address] [address] PCP - General 12/03/20 documented as of this encounter
--- OUTSIDE RECORDS SUMMARY | 2024-12-16 08:30 | XMS_ITS | Encounter Summary ---
Author Organization [facility] Address [address] [place] [address] Care Team Providers Care Emergency Medical Service Manager Name Role Phone Zhao Harris MD Primary Care Provider [phone] Reason for Referral * Genetic Testing (Routine) - Authorized Specialty Diagnoses / Procedures Referred By Justice t Referred To Contact Lab Diagnoses Myelodysplasia (myelodysplastic syndrome) (CMS/HCC) Procedures Leukemia/Lymphoma - Immunophenotyping by Flow Cytometry Virgen Vargas MD [address] [facility] [address] [address] Phone: tel: fax: Referral ID Status Reason Start Date Expiration Date V isits Requested Visits Authorized [id number] Authorized 12/18/2024 06/19/2026 1 1 * Genetic Testing (Routine) - Authorized Specialty Diagnoses / Procedures [facility]erred To Contact Lab Diagnoses Myelodysplasia (myelodysplastic syndrome) (CMS/HCC) Procedures Bone marrow exam Virgen Vargas MD [address] [facility] [address] [address] Phone: tel: fax: Referral ID Status Reason Start Date Expiration Date V isits Requested Visits Authorized [id number] Authorized 12/18/2024 06/19/2026 1 1 Reason for Visit * Reason Comments Acute Myeloid Leukemia Encounter Details Date Type Department Care Team (Latest Contact Info) Description 12/16/2024 8:30 AM EDT Office Visit [facility] Hematology/BMT and Cellular Therapy Program [address] [facility], [address] [place] [address] Isaura Wynn, HANDIC[employer]PER [employer] [address] [facility] [address] [place] [phone] Myelodysplasia (myelodysplastic syndrome) (CMS/HCC) (Primary Dx) Social [...] drink first t manav in the morning ([employer]) to steady your nerves or to get [...] Notes * Progress Notes - Isaura Wynn, HANDICAPPER [employer] - 12/16/2024 8:30 AM EDT HEMATOLOGY ONCOLOGY [...] a preserved mata-T cell profile with a CD4:IA0xncen of 2.7:1. Polyclonal B-cells (3%) and a small plasma cell population (0.6%) were also identified. Cytogenetics: Normal. Molecular Testing: PCR for NPM1 and FLT3 mutations are negative. 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 The third, and most promising, option would be enrollment in a clinical trial, ideally one that targets TP53- mutant disease or incorporates novel agents. Unfortunately, there are no active trials available locally or at [facility], but I have reached out to Dr. Fernandes at [facility] to explore any opportunities there. We [...] daily., Disp: 90 tablet, Rfl: 3 HYDROcodone-acetaminophen ([place]) 5-325 MG tablet, Take 1 tablet by [...] Upcoming Encounters Date Type Department Care Team ([facility] st Contact Info) Description 02/10/2025 8:30 AM EDT Clinical Support [facility] Hematology/BMT and Cellular Therapy Program [address] [address] 02/10/2025 9:00 AM EDT Office Visit [facility] Hematology/BMT and Cellular Therapy Program [address] [phone] Elaina Boss, ARAM [address] [facility] [address] [place] [phone] 02/10/2025 10:30 AM EDT Appointment [facility] H Infusion [address] [place] [address] 02/11/2025 2:00 PM EDT Appointment [facility] 1 [address] [place] [address] 02/12/2025 2:00 PM EDT Appointment [facility] 1 [address] [place] [address] 02/13/2025 2:00 PM EDT Appointment [facility] 1 [address] [place] [address] 02/14/2025 2:00 PM EDT Appointment [facility] 1 [address] [place] [address] 03/10/2025 8:30 AM EDT Clinical Support [facility] Hematology/BMT and Cellular Therapy Program [address] [place] [address] 03/10/2025 9:00 AM EDT Office Visit [facility] Hematology/BMT and Cellular Therapy Program [address] [facility] [place] [address] Isaura Wynn, HANDICAPPER [employer] [address] [facility] [address] [place] [phone] 03/10/2025 11:20 AM EDT Office Visit [facility] Head[facility] Neck & Respiratory [address] [facility], [address] [place] [phone] Elsa Razo, HANDIC[employer]PER [employer] [address] [place] [phone] documented as of this encounter Procedures Procedure Name Priority Date/Time Associated Diagnosis Comments GROUP A STREPTOCOCCUS BY PCR Routine 12/16/2024 9:40 AM EDT Myelodysplasia (myelodysplastic syndrome) ([facility]/HCC) STREPTOCOCCUS CULTURE Routine 12/16/2024 9:40 AM EDT [...] EDT) Clinical Indication AML 01/07/2025 10:18 AM T [facility] Flow Cytometry Interpretation APPROXIMATELY 16% MYELOID BLASTS; EXPRESSING CD34, CD117, CD13, CD33, HLA-DR, PARTIAL CD7, PARTIAL CD123, VARIABLE CD38, AND MODERATE CD45, SEE COMMENT, BONE MARROW ASPIRATE. 01/07/2025 10:18 AM T [facility] Comments Specimen viability is 79%. [...] disease. Final interpretation requires morphologic correlation ([id number]). The following antibodies were used in this analysis: CD45, CD2, CD3, CD4, CD5, CD7, CD8, CD10, CD13, CD14, CD15, CD16, CD19, CD20, CD33, CD34, CD38, CD56, CD117, HLA-DR, kappa surface light chains, lambda surface light chains, CD123 01/07/2025 10:18 AM EDT [facility] Disclaimer This test was developed and its performance characteristics determined by the Immuno-Molecular Pathology Laboratory at the [facility]. It has not been cleared or [...] clinical laboratory testing. 01/07/2025 10:18 AM EDT [facility] Pathologist Signature Reviewed by: Tessie Peralta MD 01/07/2025 10:18 AM EDT [facility] MRD Indicated Test Not Indicated 10:18 AM EDT [facility] Bone Marrow Specimen from bone marrow obtained by aspiration / Unknown Non-blood Collection / Unknown 01/06/2025 9:48 AM EDT 01/06/2025 11:20 AM EDT us Virgen Vargas MD LAB FLOW CYTOMETRY ORDERABLES Final Result [facility] [address] [place] [address] * Bone marrow exam (01/06/2025 9:48 AM EDT) Case Report Bone Marrow Case: [id number] Authorizing Provider: Virgen Vargas MD Collected: 01/06/2025 0948 Ordering Location: [facility] Hematology/BMT and Received: 01/06/2025 1108 Cellular Therapy Program Pathologist: Tessie Peralta MD Specimens: A) - Bone Marrow Aspirate, left B) - Bone Marrow Biopsy, left C) - Peripheral Blood for Bone Marrow 6:13 PM EDT [facility] Final Diagnosis BONE MARROW, LEFT POSTERIOR ILIAC CREST, (PERIPHERAL SMEAR, ASPIRATE SMEARS, AND CORE BIOPSY): - MILDLY HYPOCELLULAR BONE MARROW WITH ERYTHROID HYPERPLASIA, MARKEDLY REDUCED GRANULOPOIESIS, PERSISTENT DYSPOIESIS AND 10% BLASTS, SEE COMMENT. 6:13 PM EDT [facility] at 1813 EDT Comment The marrow cellularity is composed of erythroid cells with markedly reduced granulopoiesis and decreased megakaryocytes. Persistent trilineage dyspoiesis is noted. The blast percentages are higher by flow cytometry analysis as the majority of marrow cellularity consists of erythroid precursors that are removed by flow cytometry. 5 6:13 PM EDT [facility] Clinical Information AML 12/22 6:13 PM EDT [facility] CBC and Differential PERIPHERAL [...] blood cells. No circulating blasts are identified. 6:13 PM EDT [facility] Bone Marrow Differential BONE MARROW DIFFERENTIAL: 400 cells Normal Patient Neutrophils 15-50 0 Metamyelocytes 4-19 1 Myelocytes 1-18 2 Promyelocytes 1-8 1 Blasts 0-2 10 Monocytes 0-5 0 Erythroid 16-38 73 Lymphocytes 3-24 4 Eosinophils 0-6 1 Basophils 0-2 0 Plasma cells 0-4 8 Other 5 6:13 PM EDT [facility] Bone Marrow Aspirate and [...] trabeculae are unremarkable. 5 6:13 PM EDT [facility] Special and Immunohistochemical Stains Immunohistochemica l stains [...] developed by and are performed at the [facility], [address] [place] [address]. All tests reported here, except those addressing [...] on decalcified specimens. 5 6:13 PM EDT [facility] Flow Cytometry Interpretation APPROXIMATELY 16% MYELOID BLASTS; EXPRESSING CD34, CD117, CD13, CD33, HLA-DR, PARTIAL CD7, PARTIAL CD123, VARIABLE CD38, AND MODERATE CD45, SEE COMMENT, BONE MARROW ASPIRATE ([id number]) 6:13 PM EDT [facility] Gross Description B. LEFT A single specimen is received in formalin labeled bone marrow biopsy left posterior iliac crest and consists of 2 piece(s) of tissue measuring 0.8/0.2 cm in length 0.2 cm in diameter. The specimen is submitted in to Histology for decalcification and routine processing. Cold Time: <1m 6:13 PM EDT [facility] Note: A resident was involved in the service. I attest I examined the relevant preparations for the specimens and confirmed the diagnosis or interpretation. 5 6:13 PM EDT [facility] Bone Marrow Peripheral blood specimen / Unknown Non-blood Collection / Unknown 01/06/2025 9:48 AM EDT 01/06/2025 11:08 AM EDT Bone marrow specimen (specimen) Specimen from bone marrow obtained by biopsy / Unknown 01/06/2025 9:48 AM EDT 01/06/2025 11:09 AM EDT Bone marrow specimen (specimen) Peripheral blood specimen / Unknown 01/06/2025 9:48 AM EDT 01/06/2025 11:10 AM EDT us Virgen Vargas MD LAB PATHOLOGY ORDERABLES Terri l Result [facility] [address] [place] [address] * Streptococcus Culture (12/16/2024 9:40 AM EDT) Culture Reading Strep A No Streptococcus pyogenes or Streptococcus dysgalactiae isolated 12/17/2024 2:28 PM EDT [facility] Swab Pharyngeal structure / Unknown Non-blood Collection / Unknown 12/16/2024 9:40 AM EDT 12/16/2024 10:10 AM EDT us Isaura Wynn APRN LAB MICROBIOLOGY - GENERAL ORD ERABLES Final Result Performing Organization Address City/[facility]/ZIP Co de Phone Number [facility] [address] [place] [address] * Group A Streptococcus by PCR (12/16/2024 9:40 AM EDT) [facility] Group A Streptococcus PCR Result Not Detected Not Detected 12/16/2024 11:53 AM EDT [facility] Swab Pharyngeal structure / Unknown Non-blood Collection / Unknown 12/16/2024 9:40 AM EDT 12/16/2024 10:10 AM EDT us Isaura Wynn APRN LAB MICROBIOLOGY - GENERAL ORD ERABLES Final Result [facility] [address] [place] [address] * (ABNORMAL) Uric acid (12/16/2024 8:10 AM EDT) [facility] Uric Acid, Plasma 3.0(L) 3.7 - 8.0 mg/dL 12/16/2024 8:58 AM EDT [facility] Blood Venous blood specimen / Unknown Venipuncture / Unknown 12/16/2024 8:10 AM EDT 12/16/2024 8:27 AM EDT us Isaura Wynn APRN LAB BLOOD ORDERABLES Final Res ult Performing Organization Address City/[facility]/[place] [address] * Phosphorus, Plasma (12/16/2024 8:10 AM EDT) [facility] Phosphorus, Plasma 3.4 2.5 - 4.5 mg/dL 12/16/2024 8:58 AM EDT [facility] Blood Venous blood specimen / Unknown Venipuncture / Unknown 12/16/2024 8:10 AM EDT 12/16/2024 8:27 AM EDT us Isaura Wynn [employer] LAB BLOOD ORDERABLES Final Res ult Performing Organization Address City/[facility]/ZIP Co de Phone Number [facility] [address] [place] [address] * Magnesium, Plasma (12/16/2024 8:10 AM EDT) Magnesium, Plasma 2.4 1.9 - 2.4 mg/dL 12/16/2024 8:58 AM EDT [facility] Blood Venous blood specimen / Unknown Venipuncture / Unknown 12/16/2024 8:10 AM EDT 12/16/2024 8:27 AM EDT us Isaura Camargovelvet [employer] LAB BLOOD ORDERABLES Final Res ult Performing Organization Address [facility] Co de Phone Number [facility] [address] [place] [address] * Lactate Dehydrogenase, Plasma (12/16/2024 8:10 AM EDT) LDH, Plasma 230 116 - 250 U/L 12/16/2024 8:58 AM EDT [facility] Blood Venous blood specimen / Unknown Venipuncture / Unknown 12/16/2024 8:10 AM EDT 12/16/2024 8:27 AM EDT us Isaura Camargovelvet [employer] LAB BLOOD ORDERABLES Final Res ult Performing Organization Address [facility] Co de Phone Number [facility] [address] [place] [address] * (ABNORMAL) Comprehensive Metabolic Panel, Plasma (12/16/2024 8:10 AM EDT) Glucose, Plasma 110(H) 74 - 99 mg/dL 12/16/2024 8:58 AM EDT [facility] BUN, Plasma 10 8 - 23 mg/dL 12/16/2024 8:58 AM EDT [facility] Creatinine, Plasma 0.79 0.70 - 1.20 mg/dL 12/16/2024 8:58 AM EDT [facility] BUN/Creatinine Ratio 13 12/16/2024 8:58 AM EDT [facility] Sodium, Plasma 140 136 - 145 mmol/L 12/16/2024 8:58 AM EDT [facility] Potassium, Plasma 4.2 3.6 - 4.9 mmol/L 12/16/2024 8:58 AM EDT [facility] Chloride, Plasma 109(H) 97 - 107 mmol/L 12/16/2024 8:58 AM EDT [facility] CO2, Plasma 21(L) 22 - 29 mmol/L 12/16/2024 8:58 AM EDT [facility] Anion Gap 10 6 - 16 mmol/L 12/16/2024 8:58 AM EDT [facility] Total Calcium, Plasma 8.9 8.9 - 10.2 mg/dL 12/16/2024 8:58 AM EDT [facility] Total Protein 6.8 6.3 - 7.9 g/dL 12/16/2024 8:58 AM EDT [facility] Albumin, Plasma 4.0 3.5 - 5.2 g/dL 12/16/2024 8:58 AM EDT [facility] AST, Plasma 23 10 - 50 U/L 12/16/2024 8:58 AM EDT [facility] ALT, Plasma 25 10 - 50 U/L 12/16/2024 8:58 AM EDT [facility] Alkaline Phosphatase, Plasma 95 40 - 115 U/L 12/16/2024 8:58 AM EDT [facility] Total Bilirubin, Plasma 0.6 0.2 - 1.1 mg/dL 12/16/2024 8:58 AM EDT [facility] eGFRcr 96.2 mL/min/1.7 3m*2 12/16/2024 8:58 AM EDT [facility] Comment:Reported eGFRcr in m L/min/1.73m2 is based the CKD-EPI 2020 equation that does not use a race coefficient. Blood Venous blood specimen / Unknown Venipuncture / Unknown 12/16/2024 8:10 AM EDT 12/16/2024 8:27 AM EDT us Isaura Wynn APRN LAB BLOOD ORDERABLES Final Res ult [facility] [address] [place] [address] * (ABNORMAL) CBC and Differential (12/16/2024 8:10 AM EDT) WBC Count 0.59(LL) 3.70 - 10.30 10*3/uL LAB HEMATOLOGY METHOD 12/16/2024 10:15 AM EDT [facility] RBC Count 2.48(L) 4.60 - 6.10 10*6/uL LAB HEMATOLOGY METHOD 12/16/2024 10:15 AM EDT [facility] HGB 8.0(L) 13.7 - 17.5 g/dL LAB HEMATOLOGY METHOD 12/16/2024 10:15 AM EDT [facility] HCT 22.1(L) 40.0 - 51.0 % LAB HEMATOLOGY METHOD 12/16/2024 10:15 AM EDT [facility] Platelet Count <5(LL) 155 - 369 10*3/uL LAB HEMATOLOGY METHOD 12/16/2024 10:15 AM EDT [facility] MCV 89 79 - 98 fL LAB HEMATOLOGY METHOD 12/16/2024 10:15 AM EDT [facility] MCH 32.3(H) 26.0 - 32.0 pg LAB HEMATOLOGY METHOD 12/16/2024 10:15 AM EDT [facility] MCHC 36.2(H) 30.7 - 35.5 g/dL LAB HEMATOLOGY METHOD 12/16/2024 10:15 AM EDT [facility] RDW 16.3(H) 11.5 - 14.5 % LAB HEMATOLOGY METHOD 12/16/2024 10:15 AM EDT [facility] MPV LAB HEMATOLOGY METHOD 12/16/2024 10:15 AM EDT [facility] Comment:Not Measured nRBC 0.0 <=0.0 per 100 WBCs LAB HEMATOLOGY METHOD 12/16/2024 10:15 AM EDT [facility] Differential Type Automated LAB HEMATOLOGY METHOD 12/16/2024 10:15 AM EDT [facility] Neutrophils % 5 % LAB HEMATOLOGY METHOD 12/16/2024 10:15 AM EDT [facility] Lymphocytes % 90 % LAB HEMATOLOGY METHOD 12/16/2024 10:15 AM EDT [facility] Monocytes % 5 % LAB HEMATOLOGY METHOD 12/16/2024 10:15 AM EDT [facility] Eosinophils % 0 % LAB HEMATOLOGY METHOD 12/16/2024 10:15 AM EDT [facility] Basophils % 0 % LAB HEMATOLOGY METHOD 12/16/2024 10:15 AM EDT [facility] Immature Granulocytes % 0 % LAB HEMATOLOGY METHOD 12/16/2024 10:15 AM EDT [facility] Neutrophils Absolute 0.03(LL) 1.60 - [...] 10:15 AM EDT [facility] Immature Granulocytes Absolute 0.00 0.00 - 0.06 10*3/uL LAB HEMATOLOGY METHOD 12/16/2024 10:15 AM EDT [facility] Blood Venous blood specimen / Unknown Venipuncture / Unknown 12/16/2024 8:10 AM EDT 12/16/2024 8:28 AM EDT Narrative [facility] - 12/16/2024 10:15 AM EDT Therapeutic decision making should be based on absolute values, rather than percentages. Isaura Wynn APRN LAB BLOOD ORDERABLES Final Res ult Performing Organization Address City/State/[facility] Co de Phone Number [facility] [address] [place] [phone] documented in this encounter Visit Diagnoses Diagnosis [...] as of this encounter Care Teams Emergency Medical Service Manager Relationship Specialty Start Date End Date Zhao Harris MD [address] [place] [phone] PCP - General 12/03/20 documented as of this encounter
--- OUTSIDE RECORDS SUMMARY | 2024-12-16 10:00 | XMS_ITS | Encounter Summary ---
Author Organization [facility] Address [address] [place] [address] Care Team Providers Care Pupil Personnel Services Director Name Role Phone Zhao Harris MD Primary Care Provider + [phone] Reason for Visit * Episode Based Medications (Routine) - Closed Specialty Diagnoses / Procedures Referred By Justice mcgee Referred To Contact Diagnoses Myelodysplasia (myelodysplastic syndrome) (CMS/HCC) Procedures Azacitidine Daily x 7 / Venetoclax Every 28 Days Virgen Vargas MD 800 [facility] [address] [address] Phone: tel: fax: Virgen Vargas MD [address] [address] Phone: tel: fax: Referral ID Status Reason Start Date Expiration Date Visits Re quested Visits Authorized [id number] Closed 10/20/2024 04/21/2026 1 91 Encounter Details Date Type Department Care Team (Latest Contact Info) Description 12/16/2024 10:00 AM EDT - 12/16/2024 10:59 AM EDT Hospital Encounter P[facility] H Infusion 800 [place] [phone] Myelodysplasia (myelodysplastic syndrome) (CMS/HCC) (Primary Dx); Thrombocytopenia [...] first t manav in the morning (EYE-DIRECTOR BIOSTATISTICS) to steady your nerves or to get [...] 5 MG tabletIndications :Coronary artery disease involving chippewa-cree heart with angina pectoris, unspecified vessel or lesion type (CMS/HCC),Hyperte nsion, unspecified type Take 1 tablet (5 mg) by mouth daily. 90 tablet 3 09/11/2024 HYDROcodone-aceta minophen ([place]) 5-325 MG tablet Take 1 tablet [...] MG SL tabletIndications :Coronary artery disease involving chippewa-cree heart with angina pectoris, unspecified vessel or [...] Support PAV Hematology/BMT and Cellular Therapy Program [address] [place] [address] [place] [phone] 02/10/2025 9:00 AM EDT Office Visit PAV CC Hematology/BMT and Cellular Therapy Program [address] [phone] Elaina Boss, PA 800 [facility] [address] [place] [address] 02/10/2025 10:30 AM EDT Appointment PAV H Infusion 800 [place] [address] 02/11/2025 2:00 PM EDT Appointment [facility] Infusion Clinic 1 [address] [place] [address] 02/12/2025 2:00 PM EDT Appointment [facility]fusion [facility] 1 [address] [place] [address] 02/13/2025 2:00 PM EDT Appointment [facility]fusion [facility] 1 [address] [place] [address] 02/14/2025 2:00 PM EDT Appointment [facility] Infusion [facility] 1 [address] [place] [address] 03/10/2025 8:30 AM EDT Clinical Support PAV Hematology/BMT and Cellular Therapy Program [address] [address] 03/10/2025 9:00 AM EDT Office Visit PAV Hematology/BMT and Cellular Therapy Program [address] [address] Isaura Wynn, GLOBAL PROFESSIONAL 800 [facility] [address] [place] [address] 03/10/2025 11:20 AM EDT Office Visit Pav Head, Neck & Respiratory 800 [facility], 2nd [place] [phone] Elsa Razo, GLOBAL PROFESSIONAL 800 [place] [address] documented as of this encounter [...] LAB HEMATOLOGY METHOD 12/16/2024 1:00 PM EDT [facility] Blood Venous blood specimen / Unknown Venipuncture / Unknown 12/16/2024 12:23 PM EDT 12/16/2024 12:51 PM EDT us Virgen Vargas MD LAB BLOOD ORDERABLES Final Re sult [facility] [address] [place] [address] * Transfuse platelets (12/16/2024 12:21 PM EDT) us Kayli CHIU BLOOD TRANSFUSION [...] ORDERABLE S Final Result Performing Organization Address City/State/[facility] Co de Phone Number BLOOD BANK [address] * Exception to Standard Practice, Pathologist Interpretation [...] Signature, Exception to Standard Practice Reviewed by: Sanjunaita Swann MD 12/18/2024 10:35 AM EDT BLOOD BANK LAB CP ASR DISCLAIMER Yes 12/18/2024 10:35 AM EDT BLOOD BANK Blood Bank Lab Only 12/16/2024 10:59 AM EDT 12/18/2024 9:06 AM EDT Juwan Horton MD LAB BLOOD BANK TEST ORDERAB LES Final Result Performing Organization Address City/[facility]/ZIP Co de Phone Number BLOOD BANK [address] * Prepare Leukocyte Reduced Platelets: 1 Units (12/16/2024 10:54 AM EDT) Product Code O9191S37 BLOO D BANK Dispense Status Transfused BLOOD BANK Blood Expiration Date [id number] BLOOD BANK Unit Number [id number] CH B LOOD BANK Product Blood Type 8400 BLOOD BANK Blood Type AB+ BLOOD BANK Blood Venous blood specimen / Unknown Kayli CHIU BLOOD BANK PRODUCT ORDER VIKAS Final Result Performing Organization Address [facility] Co de Phone Number BLOOD BANK [address] * Prepare Leukocyte Reduced RBC: 1 Units, Irradiated (12/16/2024 10:54 AM EDT) Product Code C7838G23 BLOO D BANK Dispense Status Transfused BLOOD BANK Blood Expiration Date [id number] BLOOD BANK Unit Number [id number] CH B LOOD BANK Product Blood Type 9500 BLOOD BANK Blood Type O- CH BLOOD BANK Crossmatch Compatible BLOOD BANK Other Kayli CHIU BLOOD BANK PRODUCT ORDER VIKAS Final Result Performing Organization Address [facility] Co de Phone Number BLOOD BANK [address] documented in this encounter Visit Diagnoses [...] dose, In 50 mL NSIndications:Myelodysplasia (myelodysplastic syndrome) ([facility]) New Bag 12/16/2024 11:30 AM EDT 150 mg 540 mL/hr ondansetron ODT (Zofran-ODT) disintegrating tablet 16 mg 16 mg, Oral, Once, 1 dose, On Sun12/16/24 at 1115, RoutineIndications:Myelodyspla haim (myelodysplastic syndrome) ([facility]) Given 12/16/2024 11:02 AM EDT 16 mg [...] documented as of this encounter Care Teams Pupil Personnel Services Director Relationship Specialty Start Date End Date Zhao Harris MD [address] [place] [address] PCP - General 12/03/20 documented as of this encounter
--- OUTSIDE RECORDS SUMMARY | 2024-12-16 11:00 | XMS_ITS | Encounter Summary ---
Author Organization Healthcare Address [address] [place] [address] Care Team Providers Care Focused Factory Manager Name Role Phone Zhao Harris MD Primary Care Provider [phone] Encounter Details Date Type Department Care Team (Latest Contact Info) Description 12/16/2024 11:00 AM EDT - 12/16/2024 11:59 PM EDT Hospital Encounter [facility] [address] [place] [address] Myelodysplasia (myelodysplastic syndrome) (CMS/HCC) (Primary Dx) Discharge [...] drink first t manav in the morning (EYE-INTERNATIONAL RECRUITER) to steady your nerves or to get [...] 5 MG tabletIndications :Coronary artery disease involving chene[place] heart with angina pectoris, unspecified vessel or lesion type (CMS/HCC),Hyperte nsion, unspecified type Take 1 tablet (5 mg) by mouth daily. 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 [address] [address] 02/10/2025 10:30 AM EDT Appointment [facility] Infusion 800 [place] [address] 02/11/2025 2:00 PM EDT Appointment [facility] 1 [address] [place] [address] 02/12/2025 2:00 PM EDT Appointment [facility] 1 [address] [place] [address] 02/13/2025 2:00 PM EDT Appointment [facility] 1 [address] [place] [address] 02/14/2025 2:00 PM EDT Appointment [facility] 1 [address] [place] [address] 03/10/2025 8:30 AM EDT Clinical Support [facility] Hematology/BMT and Cellular Therapy Program [address] [place] [phone] 03/10/2025 9:00 AM EDT Office Visit [facility] Hematology/BMT and Cellular Therapy Program [address] [place] [address] Isaura Wynn, CUTTER HELPER 800 [facility] [address] [place] [phone] 03/10/2025 11:20 AM EDT Office Visit [facility] Head, Neck & Respiratory 800 [facility], 2nd [place] [address] Elsa Razo, CUTTER HELPER 800 [place] [address] documented as of this encounter Visit Diagnoses [...] documented as of this encounter Care Teams Focused Factory Manager Relationship Specialty Start Date End Date Zhao Harris MD [address] [place] [address] PCP - General 12/03/20 documented as of this encounter
--- OUTSIDE RECORDS SUMMARY | 2024-12-17 08:23 | XMS_ITS | Encounter Summary ---
Author Organization [facility] Address [address] [place] [address] Care Team Providers Care Plastic Worker Name Role Phone Zhao Harris MD Primary Care Provider + [phone] Reason for Visit * Episode Based Medications (Routine) - Closed Specialty Diagnoses / Procedures Referred By Justice mcgee Referred To Contact Diagnoses Myelodysplasia (myelodysplastic syndrome) (CMS/HCC) Procedures Azacitidine Daily x 7 / Venetoclax Every 28 Days Virgen Vargas MD 800 [facility] Cancer [address] [address] Phone: tel: fax: Virgen Vargas MD [address] [address] Phone: tel: fax: Referral ID Status Reason Start Date Expiration Date Visits Re quested Visits Authorized [id number] Closed 10/20/2024 04/21/2026 1 91 Encounter Details Date Type Department Care Team (Latest Contact Info) Description 12/17/2024 8:23 AM EDT - 12/17/2024 11:59 PM EDT Hospital Encounter [facility] H Infusion 800 [place] [phone] Myelodysplasia (myelodysplastic syndrome) (CMS/HCC) (Primary Dx); Thrombocytopenia [...] drink first t manav in the morning (EYE-SWINE GENETICS RESEARCHER) to steady your nerves or to get [...] 5 MG tabletIndications :Coronary artery disease involving [place] heart with angina pectoris, unspecified vessel or lesion type (CMS/HCC),Hyperte nsion, unspecified type Take 1 tablet (5 mg) by mouth daily. 90 tablet 3 09/11/2024 HYDROcodone-aceta minophen ([place]) 5-325 MG tablet Take 1 tablet by [...] MG SL tabletIndications :Coronary artery disease involving [place] heart with angina pectoris, unspecified vessel [...] Upcoming Encounters Date Type Department Care Team ([facility] st Contact Info) Description 02/10/2025 8:30 AM EDT Clinical Support [facility] Hematology/BMT and Cellular Therapy Program [address] [address] 02/10/2025 9:00 AM EDT Office Visit [facility] Hematology/BMT and Cellular Therapy Program [address] [address] Elaina Boss PA 800 [facility] [address] [place] [address] 02/10/2025 10:30 AM EDT Appointment [facility] H Infusion 800 [place] [address] 02/11/2025 2:00 PM EDT Appointment [facility] Infusion [facility] 1 [address] [place] [address] 02/12/2025 2:00 PM EDT Appointment [facility] Infusion [facility] 1 [address] [place] [address] 02/13/2025 2:00 PM EDT Appointment [facility] Infusion [facility] 1 [address] [place] [address] 02/14/2025 2:00 PM EDT Appointment [facility] 1 [address] [place] [address] 03/10/2025 8:30 AM EDT Clinical Support [facility] Hematology/BMT and Cellular Therapy Program [address] [address] 03/10/2025 9:00 AM EDT Office Visit [facility] Hematology/BMT and Cellular Therapy Program [address] [address] Isaura Wynn, CODER OPERATOR 800 [facility] Ctr [address] [place] [phone] 03/10/2025 11:20 AM EDT Office Visit Pav CC Head, Neck & Respiratory 800 [facility], 2nd [place] [phone] Elsa Razo, CODER OPERATOR 800 [place] [phone] documented as of this encounter Results * [...] dose, In 50 mL NSIndications:Myelodysplasia (myelodysplastic syndrome) ([facility]/HCC) New Bag 12/17/2024 9:23 AM EDT 150 mg 540 mL/hr ondansetron ODT (Zofran-ODT) disintegrating tablet 16 mg 16 mg, Oral, Once, 1 dose, On Sun12/17/24 at 0915, RoutineIndications:Myelodyspla haim (myelodysplastic syndrome) ([facility]) Given 12/17/2024 8:54 AM EDT [...] documented as of this encounter Care Teams Plastic Worker Relationship Specialty Start Date End Date Zhao Harris MD [address] [place] [address] PCP - General 12/03/20 documented as of this encounter
--- OUTSIDE RECORDS SUMMARY | 2024-12-18 08:30 | XMS_ITS | Encounter Summary ---
Author Organization [facility] Address [address] [place] [address] Care Team Providers Care Sales Account Specialist Name Role Phone Zhao Harris MD Primary Care Provider + [phone] Reason for Visit * Episode Based Medications (Routine) - Closed Specialty Diagnoses / Procedures Referred By Justice mcgee Referred To Contact Diagnoses Myelodysplasia (myelodysplastic syndrome) (CMS/HCC) Procedures Azacitidine Daily x 7 / Venetoclax Every 28 Days Virgen Vargas MD [address] [address] Phone: tel: fax: Virgen Vargas MD [address] [address] Phone: tel: fax: Referral ID Status Reason Start Date Expiration Date Visits Re quested Visits Authorized [id number] Closed 10/20/2024 04/21/2026 1 91 Encounter Details Date Type Department Care Team (Latest Contact Info) Description 12/18/2024 8:30 AM EDT - 12/18/2024 9:45 AM EDT Hospital Encounter [facility] H Infusion [address] [place] [phone] Myelodysplasia (myelodysplastic syndrome) (CMS/HCC) (Primary Dx); Thrombocytopenia [...] drink first t manav in the morning (EYE-REGISTRY NURSE) to steady your nerves or to [...] 5 MG tabletIndications :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, unspecified vessel or [...] Description 02/10/2025 8:30 AM EDT Clinical Support [facility] Hematology/BMT and Cellular Therapy Program [address] [place] [address] [place] [address] 02/10/2025 9:00 AM EDT Office Visit [facility] Hematology/BMT and Cellular Therapy Program [address] [phone] Elaina Boss, ARAM 800 [facility] [address] [phone] 02/10/2025 10:30 AM EDT Appointment [facility] Infusion [address] [place] [phone] 02/11/2025 2:00 PM EDT Appointment [facility] Infusion Clinic 1 [address] [place] [phone] 02/12/2025 2:00 PM EDT Appointment [facility] 1 [address] [place] [phone] 02/13/2025 2:00 PM EDT Appointment [facility] 1 [address] [place] [address] 02/14/2025 2:00 PM EDT Appointment [facility]fusion [facility] 1 [address] [place] [address] 03/10/2025 8:30 AM EDT Clinical Support [facility] Hematology/BMT and Cellular Therapy Program [address] [phone] 03/10/2025 9:00 AM EDT Office Visit [facility] Hematology/BMT and Cellular Therapy Program [address] [phone] Isaura Wynn, MANAGER INSPECTION 800 [facility] [address] [place] [phone] 03/10/2025 11:20 AM EDT Office Visit [facility] Head[facility]ck [facility] Respiratory 800 [facility], [address]nd [place] [address] Elsa Razo, MANAGER INSPECTION [address] [place] [address] documented as of this encounter [...] LAB HEMATOLOGY METHOD 12/18/2024 11:06 AM EDT [facility] Blood Blood sample taken from central line / Unknown Venipuncture / Unknown 12/18/2024 10:55 AM EDT 12/18/2024 11:03 AM EDT us Virgen Vragas MD LAB BLOOD ORDERABLES Final Re sult [facility] 800 [place] [address] * Transfuse platelets (12/18/2024 10:52 AM EDT) us Kayli CHIU BLOOD TRANSFUSION ORDERA BLES Final Result * Transfuse platelets: 1 Units (12/18/2024 10:52 AM EDT) Kayli CHIU BLOOD TRANSFUSION ORDERA BLES Final Result * Prepare Leukocyte Reduced Platelets: 1 Units (12/18/2024 9:45 AM EDT) Product Code G5942D96 CH BLOO D BANK Dispense Status Transfused BLOOD BANK Blood Expiration Date [id number] BLOOD BANK Unit Number [id number] CH B LOOD BANK Product Blood Type 6200 BLOOD BANK Blood Type A+ CH BLOOD BANK Blood Venous blood specimen / Unknown Kayli CHIU BLOOD BANK PRODUCT ORDER VIKAS Final Result BLOOD BANK 800 [place] [address], * (ABNORMAL) Comprehensive Metabolic Panel, Plasma (12/18/2024 9:14 AM EDT) Glucose, Plasma 108(H) 74 - 99 mg/dL 12/18/2024 9:51 AM EDT [facility] BUN, Plasma 10 8 - 23 mg/dL 12/18/2024 9:51 AM EDT [facility] Creatinine, Plasma 0.80 0.70 - 1.20 mg/dL 12/18/2024 9:51 AM EDT [facility] BUN/Creatinine Ratio 13 12/18/2024 9:51 AM EDT [facility] Sodium, Plasma 139 136 - 145 mmol/L 12/18/2024 9:51 AM EDT [facility] Potassium, Plasma 4.4 3.6 - 4.9 mmol/L 12/18/2024 9:51 AM EDT [facility] Chloride, Plasma 108(H) 97 - 107 mmol/L 12/18/2024 9:51 AM EDT [facility] CO2, Plasma 22 22 - 29 mmol/L 12/18/2024 9:51 AM EDT [facility] Anion Gap 9 6 - 16 mmol/L 12/18/2024 9:51 AM EDT [facility] Total Calcium, Plasma 8.8(L) 8.9 - 10.2 mg/dL 12/18/2024 9:51 AM EDT [facility] Total Protein 6.8 6.3 - 7.9 g/dL 12/18/2024 9:51 AM EDT [facility] Albumin, Plasma 3.9 3.5 - 5.2 g/dL 12/18/2024 9:51 AM EDT [facility] AST, Plasma 16 10 - 50 U/L 12/18/2024 9:51 AM EDT [facility] ALT, Plasma 16 10 - 50 U/L 12/18/2024 9:51 AM EDT [facility] Alkaline Phosphatase, Plasma 83 40 - 115 U/L 12/18/2024 9:51 AM EDT [facility] Total Bilirubin, Plasma 0.6 0.2 - 1.1 mg/dL 12/18/2024 9:51 AM EDT [facility] eGFRcr 95.8 mL/min/1.7 3m*2 12/18/2024 9:51 AM EDT [facility] Comment:Reported eGFRcr in m L/min/1.73m2 is based the CKD-EPI 2020 equation that does not use a race coefficient. Blood Blood sample taken from central line / Unknown Venipuncture / Unknown 12/18/2024 9:14 AM EDT 12/18/2024 9:20 AM EDT us Virgen Vargas MD LAB BLOOD ORDERABLES Final Re sult [facility] [address] [place] [address] * (ABNORMAL) CBC and differential (12/18/2024 9:14 AM EDT) WBC Count 0.51(LL) 3.70 - 10.30 10*3/uL LAB HEMATOLOGY METHOD 12/18/2024 10:49 AM EDT [facility] RBC Count 2.50(L) 4.60 - 6.10 10*6/uL LAB HEMATOLOGY METHOD 12/18/2024 10:49 AM EDT [facility] HGB 8.1(L) 13.7 - 17.5 g/dL LAB HEMATOLOGY METHOD 12/18/2024 10:49 AM EDT [facility] HCT 21.9(L) 40.0 - 51.0 % LAB HEMATOLOGY METHOD 12/18/2024 10:49 AM EDT [facility] Platelet Count 6(LL) 155 - 369 10*3/uL LAB HEMATOLOGY METHOD 12/18/2024 10:49 AM EDT [facility] MCV 88 79 - 98 fL LAB HEMATOLOGY METHOD 12/18/2024 10:49 AM EDT [facility] MCH 32.4(H) 26.0 - 32.0 pg LAB HEMATOLOGY METHOD 12/18/2024 10:49 AM EDT [facility] MCHC 37.0(H) 30.7 - 35.5 g/dL LAB HEMATOLOGY METHOD 12/18/2024 10:49 AM EDT [facility] RDW 16.7(H) 11.5 - 14.5 % LAB HEMATOLOGY METHOD 12/18/2024 10:49 AM EDT [facility] MPV LAB HEMATOLOGY METHOD 12/18/2024 10:49 AM EDT [facility] Comment:Not Measured nRBC 0.0 <=0.0 per 100 WBCs LAB HEMATOLOGY METHOD 12/18/2024 10:49 AM EDT [facility] Differential Type Automated LAB HEMATOLOGY METHOD 12/18/2024 10:49 AM EDT [facility] Neutrophils % 6 % LAB HEMATOLOGY METHOD 12/18/2024 10:49 AM EDT [facility] Lymphocytes % 90 % LAB HEMATOLOGY METHOD 12/18/2024 10:49 AM EDT [facility] Monocytes % 4 % LAB HEMATOLOGY METHOD 12/18/2024 10:49 AM EDT [facility] Eosinophils % 0 % LAB HEMATOLOGY METHOD 12/18/2024 10:49 AM EDT [facility] Basophils % 0 % LAB HEMATOLOGY METHOD 12/18/2024 10:49 AM EDT [facility] Immature Granulocytes % 0 % LAB HEMATOLOGY METHOD 12/18/2024 10:49 AM EDT [facility] Neutrophils Absolute 0.03(LL) 1.60 - 6.10 10*3/uL LAB HEMATOLOGY METHOD 12/18/2024 10:49 AM EDT [facility] Lymphocytes Absolute 0.46(L) 1.20 - 3.90 10*3/uL LAB HEMATOLOGY METHOD 12/18/2024 10:49 AM EDT [facility] Monocytes Absolute 0.02(L) 0.30 - 0.90 10*3/uL LAB HEMATOLOGY METHOD 12/18/2024 10:49 AM EDT [facility] Eosinophils Absolute 0.00 0.00 - 0.50 10*3/uL LAB HEMATOLOGY METHOD 12/18/2024 10:49 AM EDT [facility] Basophils Absolute 0.00 0.00 - 0.10 10*3/uL LAB HEMATOLOGY METHOD 12/18/2024 10:49 AM EDT [facility] Immature Granulocytes Absolute 0.00 0.00 - 0.06 10*3/uL LAB HEMATOLOGY METHOD 12/18/2024 10:49 AM EDT [facility] Blood Blood sample taken from central line / Unknown Venipuncture / Unknown 12/18/2024 9:14 AM EDT 12/18/2024 9:20 AM EDT Narrative [facility] - 12/18/2024 10:49 AM EDT Therapeutic decision making should be based on absolute values, rather than percentages. us Christina Ramos MD LAB BLOOD ORDERABLES Final Resul t [facility] [address] [place] [address] * Exception to Standard Practice, Pathologist Interpretation [...] ORDERAB LES Final Result Performing Organization Address City/State/[facility] Co de Phone Number BLOOD BANK 800 [place] [address], documented in this encounter Visit Diagnoses Diagnosis [...] as of this encounter Care Teams Sales Account Specialist Relationship Specialty Start Date End Date Zhao Harris MD [address] [place] [address] PCP - General 12/03/20 documented as of this encounter
--- OUTSIDE RECORDS SUMMARY | 2024-12-18 09:46 | XMS_ITS | Encounter Summary ---
Author Organization Healthcare Address [address] [place] [address] Care Team Providers Care Shovel Mechanic Name Role Phone Zhao Harris MD Primary Care Provider [phone] Encounter Details Date Type Department Care Team (Latest Contact Info) Description 12/18/2024 9:46 AM EDT - 12/18/2024 11:59 PM EDT Hospital Encounter P[facility] H Infusion [address] [place] [address] Myelodysplasia (myelodysplastic syndrome) (CMS/HCC) (Primary Dx) Discharge [...] drink first t manav in the morning (EYE-SHORTHAND TEACHER) to steady your nerves or to [...] Sign Reading Time Taken Comments Blood Pressure 125/70 12/18/2024 10:24 AM EDT Pulse 72 12/18/2024 10:24 AM EDT Temperature 36.9 C (98.4 F) 12/18/2024 10:24 AM EDT Respiratory Rate 16 12/18/2024 10:24 AM EDT Oxygen Saturation - - Inhaled Oxygen Concentration - - Weight - - Height - - Body Mass Index - - documented in this encounter Medications at Time of Discharge acyclovir (Zovirax) 800 MG tabletIndications :Myelodysplasia (myelodysplastic syndrome) (CMS/HCC) Take 1 tablet (800 mg) by mouth in the morning and 1 tablet (800 mg) before bedtime. 60 tablet 3 10/14/2024 bisoprolol (Zebeta) 5 MG tabletIndications :Coronary artery disease involving [place] heart with angina pectoris, unspecified vessel or lesion type (CMS/HCC),Hyperte nsion, unspecified type Take 1 tablet (5 mg) by mouth daily. 90 tablet 3 09/11/2024 HYDROcodone-aceta minophen ([place]) 5-325 MG tablet Take 1 tablet by [...] MG SL tabletIndications :Coronary artery disease involving [place] heart with angina pectoris, unspecified vessel or [...] tablet 12/16/2024 documented as of this encounter Plan of Treatment Upcoming Encounters Date Type Department Care Team (Late st Contact Info) Description 02/10/2025 8:30 AM EDT Clinical Support PAV CC Hematology/BMT and Cellular Therapy Program [address] [address] 02/10/2025 9:00 AM EDT Office Visit PAV Hematology/BMT and Cellular Therapy Program [address] [address] Elaina Boss, PA 800 [facility] [address] [place] [phone] 02/10/2025 10:30 AM EDT Appointment PAV Infusion 800 [place] [address] 02/11/2025 2:00 PM EDT Appointment [facility] Infusion Clinic 1 [address] [place] [address] 02/12/2025 2:00 PM EDT Appointment [facility] Infusion Clinic 1 [address] [place] [address] 02/13/2025 2:00 PM EDT Appointment [facility] Infusion Clinic 1 [address] [place] [address] 02/14/2025 2:00 PM EDT Appointment [facility] Infusion Clinic 1 [address] [place] [address] 03/10/2025 8:30 AM EDT Clinical Support PAV Hematology/BMT and Cellular Therapy Program [address] [address] 03/10/2025 9:00 AM EDT Office Visit PAV Hematology/BMT and Cellular Therapy Program [address] [phone] Isaura Wynn APRN 800 [facility] [address] [place] [phone] 03/10/2025 11:20 AM EDT Office Visit Pav CC Head, Neck & Respiratory 800 [facility], 2nd [place] [address] Elsa Razo, DATE NIGHT CAREGIVER [address] [place] [address] documented as of this encounter Visit Diagnoses [...] documented as of this encounter Care Teams Shovel Mechanic Relationship Specialty Start Date End Date Zhao Harris MD [facility] [address] [address] PCP - General 12/03/20 documented as of this encounter
--- OUTSIDE RECORDS SUMMARY | 2024-12-19 08:30 | XMS_ITS | Encounter Summary ---
Author Organization [facility] Address [address] [place] [address] Care Team Providers Care Stores Assistant Name Role Phone Zhao Harris MD Primary Care Provider + [phone] Reason for Visit * Episode Based Medications (Routine) - Closed Specialty Diagnoses / Procedures Referred By Justice mcgee Referred To Contact Diagnoses Myelodysplasia (myelodysplastic syndrome) (CMS/HCC) Procedures Azacitidine Daily x 7 / Venetoclax Every 28 Days Virgen Vargas MD [address] [address] Phone: tel: fax: Virgen Vargas MD [address] [address] Phone: tel: fax: Referral ID Status Reason Start Date Expiration Date Visits Re quested Visits Authorized [id number] Closed 10/20/2024 04/21/2026 1 91 Encounter Details Date Type Department Care Team (Latest Contact Info) Description 12/19/2024 8:30 AM EDT - 12/19/2024 11:59 PM EDT Hospital Encounter [facility] Infusion Clinic 2 [address] [place] [phone] Myelodysplasia (myelodysplastic syndrome) (CMS/HCC) (Primary Dx) Discharge [...] drink first t manav in the morning (EYE-HOLE FILLER) to steady your nerves or to get [...] 5 MG tabletIndications :Coronary artery disease involving [place] heart with angina pectoris, unspecified vessel or lesion type (CMS/HCC),Hyperte nsion, unspecified type Take 1 tablet (5 mg) by mouth daily. 90 tablet 3 09/11/2024 HYDROcodone-aceta minophen ([place]) 5-325 MG tablet Take 1 tablet by [...] MG SL tabletIndications :Coronary artery disease involving [place] heart with angina pectoris, unspecified vessel or [...] Upcoming Encounters Date Type Department Care Team ([facility] Contact Info) Description 02/10/2025 8:30 AM EDT Clinical Support [facility] Hematology/BMT and Cellular Therapy Program [address] [address] 02/10/2025 9:00 AM EDT Office Visit [facility] Hematology/BMT and Cellular Therapy Program [address] [address] Elaina Boss PA 800 [facility] [address] [place] [phone] 02/10/2025 10:30 AM EDT Appointment [facility] H Infusion [address] [place] [address] 02/11/2025 2:00 PM EDT Appointment [facility] 1 [address] [place] [address] 02/12/2025 2:00 PM EDT Appointment [facility] Infusion [facility] 1 [address] [place] [address] 02/13/2025 2:00 PM EDT Appointment [facility] Infusion Clinic 1 [address] [place] [address] 02/14/2025 2:00 PM EDT Appointment [facility] Infusion Clinic 1 [address] [place] [address] 03/10/2025 8:30 AM EDT Clinical Support [facility] Hematology/BMT and Cellular Therapy Program [address] [address] 03/10/2025 9:00 AM EDT Office Visit [facility] Hematology/BMT and Cellular Therapy Program [address] [address] Isaura Wynn, DIGITAL PRINTER 800 [facility] [address] [place] [phone] 03/10/2025 11:20 AM EDT Office Visit [facility] Head, Neck & Respiratory 800 [facility], 2nd [place] [phone] Elsa Razo, DIGITAL PRINTER [address] [place] [phone] documented as of this encounter Visit Diagnoses [...] documented as of this encounter Care Teams Stores Assistant Relationship Specialty Start Date End Date Zhao Harris MD [address] [place] [address] PCP - General 12/03/20 documented as of this encounter
--- OUTSIDE RECORDS SUMMARY | 2024-12-20 08:08 | XMS_ITS | Encounter Summary ---
Author Organization [facility] Address [address] [facility] [place] [address] Care Team Providers Care Welder And Fitter Name Role Phone Zhao Harris MD Primary Care Provider + [phone] Reason for Visit * Episode Based Medications (Routine) - Closed Specialty Diagnoses / Procedures Referred By Justice mcgee Referred To Contact Diagnoses Myelodysplasia (myelodysplastic syndrome) (CMS/HCC) Procedures Azacitidine Daily x 7 / Venetoclax Every 28 Days Virgen Vargas MD [address] [place] [phone] Phone: tel: fax: Virgen Vargas MD [address] [phone] Phone: tel: fax: Referral ID Status Reason Start Date Expiration Date Visits Re quested Visits Authorized [id number] Closed 10/20/2024 04/21/2026 1 91 Encounter Details Date Type Department Care Team (Latest Contact Info) Description 12/20/2024 8:08 AM EDT - 12/20/2024 11:59 PM EDT Hospital Encounter [facility] 1 [address] [place] [phone] Myelodysplasia (myelodysplastic syndrome) (CMS/HCC) (Primary Dx); Thrombocytopenia [...] drink first t manav in the morning (EYE-OVEN OPERATOR) to steady your nerves or to [...] MG tabletIndications :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, unspecified vessel or [...] [facility] Contact Info) Description 02/10/2025 8:30 AM EDT Clinical Support [facility] Hematology/BMT and Cellular Therapy Program [address] [phone] 02/10/2025 9:00 AM EDT Office Visit [facility] Hematology/BMT and Cellular Therapy Program [address] [phone] Elaina Boss, ARAM 800 [facility] [address] [place] [phone] 02/10/2025 10:30 AM EDT Appointment [facility] [address] [place] [address] 02/11/2025 2:00 PM EDT Appointment [facility] 1 [address] [place] [address] 02/12/2025 2:00 PM EDT Appointment [facility] 1 [address] [place] [address] 02/13/2025 2:00 PM EDT Appointment [facility] 1 [address] [place] [address] 02/14/2025 2:00 PM EDT Appointment [facility] 1 [address] [place] [address] 03/10/2025 8:30 AM EDT Clinical Support [facility] Hematology/BMT and Cellular Therapy Program [address] [address] 03/10/2025 9:00 AM EDT Office Visit [facility] Hematology/BMT and Cellular Therapy Program [address] [phone] Isaura Wynn, PROGRAM ANALYST 800 [facility] [address] [place] [phone] 03/10/2025 11:20 AM EDT Office Visit [facility] Head, Neck & Respiratory 800 [facility], 2nd [place] [address] Elsa Razo, PROGRAM ANALYST [address] [place] [phone] documented as of this encounter Procedures Procedure [...] ORDERABLE S Final Result Performing Organization Address [facility] Co de Phone Number BLOOD BANK 800 [place] [address], * Prepare Leukocyte Reduced RBC: 1 Units, Irradiated (12/20/2024 10:01 AM EDT) Product Code [id number] CH BLOO D BANK Dispense Status Transfused BLOOD BANK Blood Expiration Date [id number] BLOOD BANK Unit Number [id number] CH B LOOD BANK Product Blood Type 9500 BLOOD BANK Blood Type O- BLOOD BANK Crossmatch Compatible BLOOD BANK Other Kayli [facility]IU BLOOD BANK PRODUCT ORDER VIKAS Final Result Performing Organization Address [facility] Co de Phone Number BLOOD BANK 800 [place] [address], [place] * (ABNORMAL) CBC and differential (12/20/2024 9:00 AM EDT) WBC Count 0.59(LL) 3.70 - 10.30 10*3/uL LAB HEMATOLOGY METHOD 12/20/2024 10:25 AM EDT [facility] RBC Count 2.46(L) 4.60 - 6.10 10*6/uL LAB HEMATOLOGY METHOD 12/20/2024 10:25 AM EDT [facility] HGB 7.8(L) 13.7 - 17.5 g/dL LAB HEMATOLOGY METHOD 12/20/2024 10:25 AM EDT [facility] HCT 22.0(L) 40.0 - 51.0 % LAB HEMATOLOGY METHOD 12/20/2024 10:25 AM EDT [facility] Platelet Count 22(L) 155 - 369 10*3/uL LAB HEMATOLOGY METHOD 12/20/2024 10:25 AM EDT [facility] MCV 89 79 - 98 fL LAB HEMATOLOGY METHOD 12/20/2024 10:25 AM EDT [facility] MCH 31.7 26.0 - 32.0 pg LAB HEMATOLOGY METHOD 12/20/2024 10:25 AM EDT [facility] MCHC 35.5 30.7 - 35.5 g/dL LAB HEMATOLOGY METHOD 12/20/2024 10:25 AM EDT [facility] RDW 16.0(H) 11.5 - 14.5 % LAB HEMATOLOGY METHOD 12/20/2024 10:25 AM EDT [facility] MPV 11.3 8.8 - 12.5 fL LAB HEMATOLOGY METHOD 12/20/2024 10:25 AM EDT [facility] nRBC 0.0 <=0.0 per 100 WBCs LAB HEMATOLOGY METHOD 12/20/2024 10:25 AM EDT [facility] Differential Type Automated LAB HEMATOLOGY METHOD 12/20/2024 10:25 AM EDT [facility] Neutrophils % 5 % LAB HEMATOLOGY METHOD 12/20/2024 10:25 AM EDT [facility] Lymphocytes % 92 % LAB HEMATOLOGY METHOD 12/20/2024 10:25 AM EDT [facility] Monocytes % 3 % LAB HEMATOLOGY METHOD 12/20/2024 10:25 AM EDT [facility] Eosinophils % 0 % LAB HEMATOLOGY METHOD 12/20/2024 10:25 AM EDT [facility] Basophils % 0 % LAB HEMATOLOGY METHOD 12/20/2024 10:25 AM EDT [facility] Immature Granulocytes % 0 % LAB HEMATOLOGY METHOD 12/20/2024 10:25 AM EDT [facility] Neutrophils Absolute 0.03(LL) 1.60 - 6.10 10*3/uL LAB HEMATOLOGY METHOD 12/20/2024 10:25 AM EDT [facility] Lymphocytes Absolute 0.54(L) 1.20 - 3.90 10*3/uL LAB HEMATOLOGY METHOD 12/20/2024 10:25 AM EDT [facility] Monocytes Absolute 0.02(L) 0.30 - 0.90 10*3/uL LAB HEMATOLOGY METHOD 12/20/2024 10:25 AM EDT [facility] Eosinophils Absolute 0.00 0.00 - 0.50 10*3/uL LAB HEMATOLOGY METHOD 12/20/2024 10:25 AM EDT [facility] Basophils Absolute 0.00 0.00 - 0.10 10*3/uL LAB HEMATOLOGY METHOD 12/20/2024 10:25 AM EDT [facility] Immature Granulocytes Absolute 0.00 0.00 - 0.06 10*3/uL LAB HEMATOLOGY METHOD 12/20/2024 10:25 AM EDT [facility] Blood Blood sample taken from central line / Unknown (Central Line) Existing Catheter / Unknown 12/20/2024 9:00 AM EDT 12/20/2024 9:13 AM EDT Narrative [facility] - 12/20/2024 10:25 AM EDT Therapeutic decision making should be based on absolute values, rather than percentages. us Christina Ramos MD LAB BLOOD ORDERABLES Final Resul t [facility] [address] [place] [address] documented in this encounter Visit Diagnoses Diagnosis [...] documented as of this encounter Care Teams Welder And Fitter Relationship Specialty Start Date End Date Zhao Harris MD [address] [place] [address] PCP - General 12/03/20 documented as of this encounter
--- OUTSIDE RECORDS SUMMARY | 2024-12-21 08:30 | XMS_ITS | Encounter Summary ---
Author Organization [facility] Address [address] [place] [address] Care Team Providers Care Juvenile Justice Officer Name Role Phone Zhao Harris MD Primary Care Provider + [phone] Reason for Visit * Episode Based Medications (Routine) - Closed Specialty Diagnoses / Procedures Referred By Justice mcgee Referred To Contact Diagnoses Myelodysplasia (myelodysplastic syndrome) (CMS/HCC) Procedures Azacitidine Daily x 7 / Venetoclax Every 28 Days Virgen Vargas MD [address] [address] Phone: tel: fax: Virgen Vargas MD [address] [address] Phone: tel: fax: Referral ID Status Reason Start Date Expiration Date Visits Re quested Visits Authorized [id number] Closed 10/20/2024 04/21/2026 1 91 Encounter Details Date Type Department Care Team (Latest Contact Info) Description 12/21/2024 8:30 AM EDT - 12/21/2024 11:59 PM EDT Hospital Encounter [facility] Infusion Clinic 1 [address] [place] [phone] Myelodysplasia (myelodysplastic syndrome) (CMS/HCC) (Primary Dx) Discharge [...] drink first t manav in the morning (EYE-RN ENDOCRINOLOGY) to steady your nerves or to get [...] 5 MG tabletIndications :Coronary artery disease involving [place] heart with angina pectoris, unspecified vessel or lesion type (CMS/HCC),Hyperte nsion, unspecified type Take 1 tablet (5 mg) by mouth daily. 90 tablet 3 09/11/2024 HYDROcodone-aceta minophen ([place]) 5-325 MG tablet Take 1 tablet by [...] MG SL tabletIndications :Coronary artery disease involving [place] heart with angina pectoris, unspecified vessel or [...] Cellular Therapy Program [address] [address] 02/10/2025 9:00 AM EDT Office Visit [facility] Hematology/BMT and Cellular Therapy Program [address] [phone] Elaina Boss PA 800 [facility] [address] [place] [address] 02/10/2025 10:30 AM EDT Appointment [facility] H Infusion [address] [place] [address] 02/11/2025 2:00 PM EDT Appointment [facility] Infusion Clinic 1 [address] [place] [address] 02/12/2025 2:00 PM EDT Appointment [facility] Infusion Clinic 1 [address] [place] [address] 02/13/2025 2:00 PM EDT Appointment [facility] Infusion Clinic 1 [address] [place] [address] 02/14/2025 2:00 PM EDT Appointment [facility] Infusion Clinic 1 [address] [place] [address] 03/10/2025 8:30 AM EDT Clinical Support [facility] Hematology/BMT and Cellular Therapy Program [address] [address] 03/10/2025 9:00 AM EDT Office Visit [facility] Hematology/BMT and Cellular Therapy Program [address] [address] Isaura Wynn, SPECIAL NEEDS NANNY 800 [facility] [address] [place] [phone] 03/10/2025 11:20 AM EDT Office Visit [facility] CC Head, Neck & Respiratory 800 [facility], 2nd [place] [phone] Elsa Razo, SPECIAL NEEDS NANNY [address] [place] [phone] documented as of this encounter Visit Diagnoses [...] documented as of this encounter Care Teams Juvenile Justice Officer Relationship Specialty Start Date End Date Zhao Harris MD [address] [place] [address] PCP - General 12/03/20 documented as of this encounter
--- OUTSIDE RECORDS SUMMARY | 2024-12-22 08:24 | XMS_ITS | Encounter Summary ---
Author Organization [facility] Address [address] [place] [address] Care Team Providers Care Plant Protection Guard Name Role Phone Zhao Harris MD Primary Care Provider + [phone] Reason for Visit * Episode Based Medications (Routine) - Closed Specialty Diagnoses / Procedures Referred By Justice mcgee Referred To Contact Diagnoses Myelodysplasia (myelodysplastic syndrome) (CMS/HCC) Procedures Azacitidine Daily x 7 / Venetoclax Every 28 Days Virgen Vargas MD 800 [facility] [address] [address] Phone: tel: fax: Virgen Vargas MD [address] [address] Phone: tel: fax: Referral ID Status Reason Start Date Expiration Date Visits Re quested Visits Authorized [id number] Closed 10/20/2024 04/21/2026 1 91 Encounter Details Date Type Department Care Team (Latest Contact Info) Description 12/22/2024 8:24 AM EDT - 12/22/2024 9:57 AM EDT Hospital Encounter [facility] H Infusion 800 [place] [phone] Myelodysplasia (myelodysplastic syndrome) (CMS/HCC) (Primary Dx); Thrombocytopenia [...] drink first t manav in the morning (EYE-CITRIX ADMINISTRATOR) to steady your nerves or to [...] 5 MG tabletIndications :Coronary artery disease involving [place] heart with angina pectoris, unspecified vessel or lesion type (CMS/HCC),Hyperte nsion, unspecified type Take 1 tablet (5 mg) by mouth daily. 90 tablet 3 09/11/2024 HYDROcodone-aceta minophen (Sod) 5-325 MG tablet Take 1 tablet by [...] MG SL tabletIndications :Coronary artery disease involving [place] heart with angina pectoris, unspecified vessel or [...] ([facility] st Contact Info) Description 02/10/2025 8:30 AM EDT Clinical Support [facility] Hematology/BMT and Cellular Therapy Program [address] [phone] 02/10/2025 9:00 AM EDT Office Visit [facility] Hematology/BMT and Cellular Therapy Program [address] [phone] Elaina Boss, ARAM 800 [facility] [address] [place] [phone] 02/10/2025 10:30 AM EDT Appointment [facility] Infusion [address] [place] [phone] 02/11/2025 2:00 PM EDT Appointment [facility] 1 [address] [place] [address] 02/12/2025 2:00 PM EDT Appointment [facility] 1 [address] [place] [address] 02/13/2025 2:00 PM EDT Appointment [facility] 1 [address] [place] [address] 02/14/2025 2:00 PM EDT Appointment [facility] 1 [address] [place] [address] 03/10/2025 8:30 AM EDT Clinical Support P[facility] CC Hematology/BMT and Cellular Therapy Program [address] [address] 03/10/2025 9:00 AM EDT Office Visit [facility] CC Hematology/BMT and Cellular Therapy Program [address] [phone] Isaura Wynn, TALENT ACQUISITION ASSISTANT 800 [facility] [address] [place] [phone] 03/10/2025 11:20 AM EDT Office Visit Pav CC Head, Neck & Respiratory 800 [facility], [address]nd [place] [address] Elsa Razo, TALENT ACQUISITION ASSISTANT [address] [place] [phone] documented as of this encounter Procedures Procedure [...] Platelet count (12/22/2024 10:57 AM EDT) Pathologist [facility] Platelet Count 36(L) 155 - 369 10*3/uL LAB HEMATOLOGY METHOD 12/22/2024 11:14 AM EDT [facility] Blood Venous blood specimen / Unknown Venipuncture / Unknown 12/22/2024 10:57 AM EDT 12/22/2024 11:04 AM EDT Virgen Vargas MD LAB BLOOD ORDERABLES Final Re sult [facility] [address] [place] [address] * Prepare Leukocyte Reduced Platelets: 1 Units (12/22/2024 9:44 AM EDT) Pathologist [facility] Product Code [id number] CH BLOO D BANK Dispense Status Transfused BLOOD BANK Blood Expiration Date [id number] BLOOD BANK Unit Number [id number] CH B LOOD BANK Product Blood Type 0600 BLOOD BANK Blood Type A- BLOOD BANK Blood Venous blood specimen / Unknown us Kayli CHIU BLOOD BANK PRODUCT ORDER VIKAS Final Result BLOOD BANK [address] [place] [address], * (ABNORMAL) CBC and Differential (12/22/2024 8:53 AM EDT) WBC Count 0.50(LL) 3.70 - 10.30 10*3/uL LAB HEMATOLOGY METHOD 12/22/2024 11:33 AM EDT [facility] RBC Count 2.90(L) 4.60 - 6.10 10*6/uL LAB HEMATOLOGY METHOD 12/22/2024 11:33 AM EDT [facility] HGB 8.9(L) 13.7 - 17.5 g/dL LAB HEMATOLOGY METHOD 12/22/2024 11:33 AM EDT [facility] HCT 25.0(L) 40.0 - 51.0 % LAB HEMATOLOGY METHOD 12/22/2024 11:33 AM EDT [facility] Platelet Count 5(LL) 155 - 369 10*3/uL LAB HEMATOLOGY METHOD 12/22/2024 11:33 AM EDT [facility] MCV 86 79 - 98 fL LAB HEMATOLOGY METHOD 12/22/2024 11:33 AM EDT [facility] MCH 30.7 26.0 - 32.0 pg LAB HEMATOLOGY METHOD 12/22/2024 11:33 AM EDT [facility] MCHC 35.6(H) 30.7 - 35.5 g/dL LAB HEMATOLOGY METHOD 12/22/2024 11:33 AM EDT [facility] RDW 15.6(H) 11.5 - 14.5 % LAB HEMATOLOGY METHOD 12/22/2024 11:33 AM EDT [facility] MPV LAB HEMATOLOGY METHOD 12/22/2024 11:33 AM EDT [facility] Comment:Not Measured nRBC 0.0 <=0.0 per 100 WBCs LAB HEMATOLOGY METHOD 12/22/2024 11:33 AM EDT [facility] Differential Type Automated LAB HEMATOLOGY METHOD 12/22/2024 11:33 AM EDT [facility] Neutrophils % 12 % LAB HEMATOLOGY METHOD 12/22/2024 11:33 AM EDT [facility] Lymphocytes % 86 % LAB HEMATOLOGY METHOD 12/22/2024 11:33 AM EDT [facility] Monocytes % 2 % LAB HEMATOLOGY METHOD 12/22/2024 11:33 AM EDT [facility] Eosinophils % 0 % LAB HEMATOLOGY METHOD 12/22/2024 11:33 AM EDT [facility] Basophils % 0 % LAB HEMATOLOGY METHOD 12/22/2024 11:33 AM EDT [facility] Immature Granulocytes % 0 % LAB HEMATOLOGY METHOD 12/22/2024 11:33 AM EDT [facility] Neutrophils Absolute 0.06(LL) 1.60 - 6.10 10*3/uL LAB HEMATOLOGY METHOD 12/22/2024 11:33 AM EDT [facility] Lymphocytes Absolute 0.43(L) 1.20 - 3.90 10*3/uL LAB HEMATOLOGY METHOD 12/22/2024 11:33 AM EDT [facility] Monocytes Absolute 0.01(L) 0.30 - 0.90 10*3/uL LAB HEMATOLOGY METHOD 12/22/2024 11:33 AM EDT [facility] Eosinophils Absolute 0.00 0.00 - 0.50 10*3/uL LAB HEMATOLOGY METHOD 12/22/2024 11:33 AM EDT [facility] Basophils Absolute 0.00 0.00 - 0.10 10*3/uL LAB HEMATOLOGY METHOD 12/22/2024 11:33 AM EDT [facility] Immature Granulocytes Absolute 0.00 0.00 - 0.06 10*3/uL LAB HEMATOLOGY METHOD 12/22/2024 11:33 AM EDT [facility] Blood Venous blood specimen / Unknown Venipuncture / Unknown 12/22/2024 8:53 AM EDT 12/22/2024 8:59 AM EDT [facility] - 12/22/2024 11:33 AM EDT Therapeutic decision making should be based on absolute values, rather than percentages. us Virgen Vargas MD LAB BLOOD ORDERABLES Final Re sult [facility] [address] [place] [address] * (ABNORMAL) Comprehensive Metabolic Panel, Plasma (12/22/2024 8:53 AM EDT) Glucose, Plasma 107(H) 74 - 99 mg/dL 12/22/2024 9:29 AM EDT [facility] BUN, Plasma 14 8 - 23 mg/dL 12/22/2024 9:29 AM EDT [facility] Creatinine, Plasma 0.93 0.70 - 1.20 mg/dL 12/22/2024 9:29 AM EDT [facility] BUN/Creatinine Ratio 15 12/22/2024 9:29 AM EDT [facility] Sodium, Plasma 136 136 - 145 mmol/L 12/22/2024 9:29 AM EDT [facility] Potassium, Plasma 4.3 3.6 - 4.9 mmol/L 12/22/2024 9:29 AM EDT [facility] Chloride, Plasma 106 97 - 107 mmol/L 12/22/2024 9:29 AM EDT [facility] CO2, Plasma 22 22 - 29 mmol/L 12/22/2024 9:29 AM EDT [facility] Anion Gap 8 6 - 16 mmol/L 12/22/2024 9:29 AM EDT [facility] Total Calcium, Plasma 9.1 8.9 - 10.2 mg/dL 12/22/2024 9:29 AM EDT [facility] Total Protein 7.0 6.3 - 7.9 g/dL 12/22/2024 9:29 AM EDT [facility] Albumin, Plasma 3.9 3.5 - 5.2 g/dL 12/22/2024 9:29 AM EDT [facility] AST, Plasma 16 10 - 50 U/L 12/22/2024 9:29 AM EDT [facility] ALT, Plasma 12 10 - 50 U/L 12/22/2024 9:29 AM EDT [facility] Alkaline Phosphatase, Plasma 83 40 - 115 U/L 12/22/2024 9:29 AM EDT [facility] Total Bilirubin, Plasma 0.7 0.2 - 1.1 mg/dL 12/22/2024 9:29 AM EDT [facility] eGFRcr 88.9 mL/min/1.7 3m*2 12/22/2024 9:29 AM EDT [facility] Comment:Reported eGFRcr in m L/min/1.73m2 is based the CKD-EPI 2020 equation that does not use a race coefficient. Blood Venous blood specimen / Unknown Venipuncture / Unknown 12/22/2024 8:53 AM EDT 12/22/2024 8:59 AM EDT us Virgen Vargas MD LAB BLOOD ORDERABLES Final Re sult [facility] [address] [place] [address] documented in this encounter Visit Diagnoses Diagnosis [...] Noted Time PHQ-9 Depression Total Score: 0 02/20/20 25 9:15 AM EST A fall risk assessment has been complete d for the patient 12/22/2024 8:26 AM EDT A Body Mass Index follow-up plan has been documented for the patient 12/16/2024 12:23 PM EDT documented as of this encounter Care Teams Plant Protection Guard Relationship Specialty Start Date End Date Zhao Harris MD [address] [place] [address] PCP - General 12/03/20 documented as of this encounter
--- OUTSIDE RECORDS SUMMARY | 2024-12-22 09:58 | XMS_ITS | Encounter Summary ---
Author Organization Healthcare Address [address] [place] [address] Care Team Providers Care Airport Operations Crew Member Name Role Phone Zhao Harris MD Primary Care Provider [phone] Encounter Details Date Type Department Care Team (Latest Contact Info) Description 12/22/2024 9:58 AM EDT - 12/22/2024 11:59 PM EDT Hospital Encounter [facility] [address] [place] [address] Myelodysplasia (myelodysplastic syndrome) (CMS/HCC) (Primary Dx) Discharge [...] drink first t manav in the morning (EYE-CLOTH BLEACHING SUPERVISOR) to steady your nerves or to [...] daily. 90 tablet 3 09/11/2024 HYDROcodone-aceta minophen ([place]) 5-325 MG tablet Take 1 tablet by [...] Hematology/BMT and Cellular Therapy Program [address] [address] 02/10/2025 9:00 AM EDT Office Visit P[facility] Hematology/BMT and Cellular Therapy Program [address] [address] Elaina Boss, ARAM 800 [facility] [address] [place] [phone] 02/10/2025 10:30 AM EDT Appointment [facility] 800 [place] [address] 02/11/2025 2:00 PM EDT Appointment [facility] 1 [address] [place] [address] 02/12/2025 2:00 PM EDT Appointment [facility] 1 [address] [place] [address] 02/13/2025 2:00 PM EDT Appointment [facility] 1 [address] [place] [address] 02/14/2025 2:00 PM EDT Appointment [facility] 1 [address] [place] [address] 03/10/2025 8:30 AM EDT Clinical Support P[facility] Hematology/BMT and Cellular Therapy Program [address] [address] 03/10/2025 9:00 AM EDT Office Visit [facility] Hematology/BMT and Cellular Therapy Program [address] [address] Isaura Wynn, ESTRELLA 800 [facility] [address] [phone] 03/10/2025 11:20 AM EDT Office Visit Pav Head, Neck & Respiratory 800 [facility], 2nd [place] [address] Elsa Razo, DERRICK BOAT RUNNER 800 [place] [address] documented as of this encounter Visit Diagnoses [...] documented as of this encounter Care Teams Airport Operations Crew Member Relationship Specialty Start Date End Date Zhao Harris MD [address] [place], [place] [phone] PCP - General 12/03/20 documented as of this encounter
--- OUTSIDE RECORDS SUMMARY | 2025-01-06 08:30 | XMS_ITS | Encounter Summary ---
Author Organization [facility] Address [address] [place] [address] Care Team Providers Care Property Insurance Agent Name Role Phone Zhao Harris MD Primary Care Provider [phone] Reason for Visit * Reason Comments Labs Encounter Details Date Type Department Care Team ([facility] st Contact Info) Description 01/06/2025 8:30 AM EDT Clinical Support P[facility] CC Hematology/BMT and Cellular Therapy Program [address] [place] [address] [place] [address] Nate Ponce, RN Social History Tobacco Use Types Packs/Day Years [...] drink first t manav in the morning (EYE-FUNERAL HOME ATTENDANT) to steady your nerves or to get [...] [facility] Description 02/10/2025 8:30 AM EDT Clinical Support PAV Hematology/BMT and Cellular Therapy Program [address] [address] 02/10/2025 9:00 AM EDT Office Visit PAV Hematology/BMT and Cellular Therapy Program [address] [phone] Elaina Boss, ARAM 800 [facility] [address] [place] [address] 02/10/2025 10:30 AM EDT Appointment P[facility] H Infusion [address] [place] [address] 02/11/2025 2:00 PM EDT Appointment [facility] 1 [address] [place] [address] 02/12/2025 2:00 PM EDT Appointment [facility] 1 [address] [place] [address] 02/13/2025 2:00 PM EDT Appointment [facility] 1 [address] [place] [address] 02/14/2025 2:00 PM EDT Appointment [facility] 1 [address] [place] [address] 03/10/2025 8:30 AM EDT Clinical Support PAV Hematology/BMT and Cellular Therapy Program [address] [address] 03/10/2025 9:00 AM EDT Office Visit P[facility] CC Hematology/BMT and Cellular Therapy Program 750 [facility], [address] [place] [phone] Isaura Wynn, TUBE WASHER 800 [facility] [address] [place] [phone] 03/10/2025 11:20 AM EDT Office Visit Pav CC Head, Neck & Respiratory 800 [facility], 2nd [place] [phone] Elsa Razo, TUBE WASHER 800 [place] [phone] documented as of this encounter Visit Diagnoses [...] documented as of this encounter Care Teams Property Insurance Agent Relationship Specialty Start Date End Date Zhao Harris MD [address] [address] PCP - General 12/03/20 documented as of this encounter
--- OUTSIDE RECORDS SUMMARY | 2025-01-06 09:00 | XMS_ITS | Encounter Summary ---
Author Organization [facility] Address [address] [place] [address] Care Team Providers Care Retail Analytics Manager Name Role Phone Zhao Harris MD Primary Care Provider [phone] Reason for Visit * Reason Comments Procedure * Genetic Testing (Routine) - Authorized Specialty Diagnoses / Procedures Referred By Justice mcgee Referred To Contact Lab Diagnoses Myelodysplasia (myelodysplastic syndrome) (CMS/HCC) Procedures Leukemia/Lymphoma - Immunophenotyping by Flow Cytometry Virgen Vargas MD 800 [facility] [address] [address] Phone: tel: fax: Referral ID Status Reason Start Date Expiration Date V isits Requested Visits Authorized [id number] Authorized 12/18/2024 06/19/2026 1 1 Encounter Details Date Type Department Care Team (Latest Contact Info) Description 01/06/2025 9:00 AM EDT Procedure Visit [facility] CC Hematology/BMT and Cellular Therapy Program [address] [place] [address] Kierra Novak APRN 800 [facility] [address] [address] Myelodysplasia (myelodysplastic syndrome) (CMS/HCC) [...] first t manav in the morning (EYE-MEDICAL ANTHROPOLOGY DIRECTOR) to steady your nerves or to [...] yes Risks discussed: Bleeding, infection and pain [place] protocol: Procedure explained and questions answered to [...] Encounters Date Type Department Care Team ([facility] st Contact Info) Description 02/10/2025 8:30 AM EDT Clinical Support PAV Hematology/BMT and Cellular Therapy Program [address] [address] 02/10/2025 9:00 AM EDT Office Visit P[facility] CC Hematology/BMT and Cellular Therapy Program [address] [address] Elaina Boss PA 800 [facility] [address] [place] [phone] 02/10/2025 10:30 AM EDT Appointment PAV H Infusion [address] [place] [address] 02/11/2025 2:00 PM EDT Appointment [facility] Infusion Clinic 1 [address] [place] [address] 02/12/2025 2:00 PM EDT Appointment [facility] Infusion Clinic 1 [address] [place] [address] 02/13/2025 2:00 PM EDT Appointment [facility] Infusion [facility] 1 [address] [place] [address] 02/14/2025 2:00 PM EDT Appointment [facility] Infusion [facility] 1 [address] [place] [address] 03/10/2025 8:30 AM EDT Clinical Support PAV Hematology/BMT and Cellular Therapy Program [address] [address] 03/10/2025 9:00 AM EDT Office Visit PAV Hematology/BMT and Cellular Therapy Program [address] [phone] Isaura Wynn, INVESTMENT SALES ASSISTANT 800 [facility] [address] [place] [phone] 03/10/2025 11:20 AM EDT Office Visit Pav CC Head, Neck & Respiratory 800 [facility], 2nd [place] [address] Elsa Razo, INVESTMENT SALES ASSISTANT [address] [place] [address] documented as of this encounter Procedures Procedure [...] yes Risks discussed: Bleeding, infection and pain [place] protocol: Procedure explained and questions answered to [...] Clinical Indication AML 01/07/2025 10:18 AM EDT [facility] Flow Cytometry [...] disease. Final interpretation requires morphologic correlation ([id number]). The following antibodies were used in this analysis: CD45, CD2, CD3, CD4, CD5, CD7, CD8, CD10, CD13, CD14, CD15, CD16, CD19, CD20, CD33, CD34, CD38, CD56, CD117, HLA-DR, kappa surface light chains, lambda surface light chains, CD123 01/07/2025 10:18 AM [facility] Disclaimer This test was developed and its performance characteristics determined by the Immuno-Molecular Pathology Laboratory at the [facility]. It has not been cleared [...] complexity clinical laboratory testing. 01/07/2025 10:18 AM [facility] Pathologist Signature Reviewed by: Tessie Peralta MD 01/07/2025 10:18 AM [facility] MRD Indicated Test Not Indicated 10:18 AM [facility] Bone Marrow Specimen from bone marrow obtained by aspiration / Unknown Non-blood Collection / Unknown 01/06/2025 9:48 AM EDT 01/06/2025 11:20 AM EDT us Virgen Vargas MD LAB FLOW CYTOMETRY ORDERABLES Final Result [facility] [address] [place] [address] * Bone marrow exam (01/06/2025 9:48 AM EDT) Case Report Bone Marrow Case: [id number] Authorizing Provider: Virgen Vargas MD Collected: 01/06/2025 0948 Ordering Location: [facility] Hematology/BMT and Received: 01/06/2025 1108 [...] blasts are identified. 5 6:[address] [facility] Bone Marrow Differential BONE MARROW DIFFERENTIAL: 400 cells Normal Patient Neutrophils 15-50 0 Metamyelocytes 4-19 1 Myelocytes 1-18 2 Promyelocytes 1-8 1 Blasts 0-2 10 Monocytes 0-5 0 Erythroid 16-38 73 Lymphocytes 3-24 4 Eosinophils 0-6 1 Basophils 0-2 0 Plasma cells 0-4 8 Other 5 6:[address] [facility] Bone Marrow Aspirate and Biopsy Core [...] are unremarkable. 5 6:[address] [facility] Special and Immunohistochemical Stains Immunohistochemica l [...] developed by and are performed at the [facility], [address] [place] [address]. All tests reported here, except those addressing [...] likelihood of false negativity on decalcified specimens. 6:13 PM T [facility] Flow Cytometry Interpretation APPROXIMATELY 16% MYELOID BLASTS; EXPRESSING CD34, CD117, CD13, CD33, HLA-DR, PARTIAL CD7, PARTIAL CD123, VARIABLE CD38, AND MODERATE CD45, SEE COMMENT, BONE MARROW ASPIRATE ([id number]) 6:13 PM T [facility] Gross Description B. LEFT A single specimen is received in formalin labeled bone marrow biopsy left posterior iliac crest and consists of 2 piece(s) of tissue measuring 0.8/0.2 cm in length 0.2 cm in diameter. The specimen is submitted in to Histology for decalcification and routine processing. Cold Time: <1m 6:13 PM T [facility] Note: A resident was involved in the service. I attest I examined the relevant preparations for the specimens and confirmed the diagnosis or interpretation. 6:13 PM T [facility] Bone Marrow Peripheral [...] lara Result [facility] [address] [place] [address] * (ABNORMAL) Comprehensive metabolic panel (01/06/2025 8:49 [...] Resul t [facility] [address] [place] [address] * (ABNORMAL) CBC and differential (01/06/2025 8:49 [...] AM EDT 01/06/2025 9:01 AM EDT Narrative [facility] - 01/06/2025 11:36 AM EDT Therapeutic decision making should be based on absolute values, rather than percentages. us Christina Ramos MD LAB BLOOD ORDERABLES Final Resul t [facility] [address] [place] [address] documented in this encounter Visit Diagnoses Diagnosis [...] documented as of this encounter Care Teams Retail Analytics Manager Relationship Specialty Start Date End Date Zhao Harris MD [address] [place] [address] PCP - General 12/03/20 documented as of this encounter
--- OUTSIDE RECORDS SUMMARY | 2025-01-13 09:30 | XMS_ITS | Encounter Summary ---
Author Organization [facility] Address [address] [place] [address] Care Team Providers Care Research Methods Instructor Name Role Phone Zhao Harris MD Primary Care Provider [phone] Reason for Visit * Reason Comments Nurse Visit Labs Encounter Details Date Type Department Care Team ([facility] Contact Info) Description 01/13/2025 9:30 AM EDT Clinical Support P[facility] CC Hematology/BMT and Cellular Therapy Program [address] [place] [address] [place] [address] Social History Tobacco Use Types Packs/Day Years [...] drink first t manav in the morning (EYE-LANDSCAPE ARCHITECTURE TEACHER) to steady your nerves or to [...] Hematology/BMT and Cellular Therapy Program [address] [address] 02/10/2025 9:00 AM EDT Office Visit PAV Hematology/BMT and Cellular Therapy Program [address] [address] Elaina Boss, ARAM 800 [facility] [address] [place] [address] 02/10/2025 10:30 AM EDT Appointment PAV H Infusion 800 [place] [address] 02/11/2025 2:00 PM EDT Appointment [facility] 1 [address] [place] [address] 02/12/2025 2:00 PM EDT Appointment [facility] 1 [address] [place] [address] 02/13/2025 2:00 PM EDT Appointment [facility] 1 [address] [place] [address] 02/14/2025 2:00 PM EDT Appointment [facility] 1 [address] [place] [address] 03/10/2025 8:30 AM EDT Clinical Support PAV Hematology/BMT and Cellular Therapy Program [address] [address] 03/10/2025 9:00 AM EDT Office Visit PAV CC Hematology/BMT and Cellular Therapy Program 750 [facility], [address] [place] [place] [address] Isaura Wynn, GYROSCOPE REPAIRER 800 [facility] 1st [place] [address] 03/10/2025 11:20 AM EDT Office Visit Pav CC Head, Neck & Respiratory 800 [facility], 2nd [place] [address] Elsa Razo, GYROSCOPE REPAIRER 800 [place] [address] documented as of this encounter Visit Diagnoses [...] documented as of this encounter Care Teams Research Methods Instructor Relationship Specialty Start Date End Date Zhao Harris MD [address] [address] PCP - General 12/03/20 documented as of this encounter
--- OUTSIDE RECORDS SUMMARY | 2025-01-13 10:00 | XMS_ITS | Encounter Summary ---
Author Organization [facility] Address [address] [place] [address] Care Team Providers Care Barrel Planer Name Role Phone Zhao Harris MD Primary Care Provider [phone] Reason for Referral * Imaging (Routine) - Closed Specialty Diagnoses / Procedures Referred By Justice mcgee Referred To Contact Radiology Diagnoses Myelodysplasia (myelodysplastic syndrome) (CMS/HCC) Procedures CT Guided Asp and Biopsy Bone Marrow Consult to Interventional Radiology Virgen Vargas MD 800 [facility] [address] [address] Phone: tel: fax: Referral ID Status Reason Start Date Expiration Date Visits Re quested Visits Authorized [id number] Closed 01/15/2025 07/17/2026 1 1 * Genetic Testing (Routine) - Authorized Specialty Diagnoses / Procedures Referred By Justice mcgee Referred To Contact Lab Diagnoses Myelodysplasia (myelodysplastic syndrome) (CMS/HCC) Procedures Cytogenetics Testing, Oncology Virgen Vargas MD 800 [facility] [address] [address] Phone: tel: fax: Referral ID Status Reason Start Date Expiration Date V isits Requested Visits Authorized [id number] Authorized 01/13/2025 07/15/2026 1 2 * Genetic Testing (Routine) - Closed Specialty Diagnoses / Procedures Referred By Justice mcgee Referred To Contact Lab Diagnoses Myelodysplasia (myelodysplastic syndrome) (CMS/HCC) Procedures Leukemia/Lymphoma - Immunophenotyping by Flow Cytometry Virgen Vargas MD [address] [address] Phone: tel: fax: Referral ID Status Reason Start Date Expiration Date Visits Re quested Visits Authorized [id number] Closed 01/13/2025 07/15/2026 1 1 * Genetic Testing (Routine) - Closed Specialty Diagnoses / Procedures Referred By Justice mcgee Referred To Contact Lab Diagnoses Myelodysplasia (myelodysplastic syndrome) (CMS/HCC) Procedures Bone marrow exam Virgen Vargas MD [address] [address] Phone: tel: fax: Referral ID Status Reason Start Date Expiration Date Visits Re quested Visits Authorized [id number] Closed 01/13/2025 07/15/2026 1 1 Reason for Visit * Reason Comments Follow-up Encounter Details Date Type Department Care Team (Latest Contact Info) Description 01/13/2025 10:00 AM EDT Office Visit [facility] Hematology/BMT and Cellular Therapy Program [address] [place] [address] Isaura Wynn APRN [address] [address] Myelodysplasia (myelodysplastic syndrome) (CMS/HCC) (Primary [...] drink first t manav in the morning (EYE-HOST COORDINATOR) to steady your nerves or to get [...] Not at all 01/13/2025 10:14 AM EDT Talbot, Cecelia W Feeling down, depressed, or hopeless Several days 01/13/2025 10:14 AM EDT Talbot, Cecelia W Patient Health Questionnaire -2 Score 1 01/13/2025 10:14 AM EDT Talbot, Cecelia W * Calculated C-SSRS Risk Score (Lifetime/Recent) Answer Date of Assessment Author No Risk Indicated 01/13/2025 10:14 AM EDT Chikarthik vidal Cecelia W * Question Answer Date of Assessment Author 1. Wish to be (Past 1 Month) No 025 10:14 AM EDT Emily, Cecelia W 2. Non-Specific Active Suici berry [...] time. * Progress Notes - Isaura Wynn, LABORATORY MECHANICAL TECHNICIAN - 01/13/2025 10:00 AM EDT HEMATOLOGY ONCOLOGY [...] a preserved mata-T cell profile with a CD4:SK3bgplf of 2.7:1. Polyclonal B-cells (3%) and a small plasma cell population (0.6%) were also identified. Cytogenetics: Normal. Molecular Testing: PCR for NPM1 and FLT3 mutations are negative. Next-generation sequencing (NGS) myeloid panel: ASXL1 - [id number] - VAF 25% TP53 - p.[id number] - VAF 36% U2AF1 - p.[id number] - VAF 33% 10/20/2024- started treatment with [...] [place]. 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 The third, and most promising, option would be enrollment in a clinical trial, ideally one that targets TP53- mutant disease or incorporates novel agents. He went to [facility] for a second opinion and to [...] daily., Disp: 90 tablet, Rfl: 3 HYDROcodone-acetaminophen ([place]) 5-325 MG tablet, Take 1 tablet by [...] Description 02/10/2025 8:30 AM EDT Clinical Support [facility] Hematology/BMT and Cellular Therapy Program [address] [address] 02/10/2025 9:00 AM EDT Office Visit [facility] Hematology/BMT and Cellular Therapy Program [address] [phone] Elaina Boss, ARAM 800 [facility] [address] [place] [phone] 02/10/2025 10:30 AM EDT Appointment [facility] [address] [place] [address] 02/11/2025 2:00 PM EDT Appointment [facility] 1 [address] [place] [address] 02/12/2025 2:00 PM EDT Appointment [facility] 1 [address] [place] [address] 02/13/2025 2:00 PM EDT Appointment [facility] 1 [address] [place] [address] 02/14/2025 2:00 PM EDT Appointment [facility] 1 [address] [place] [address] 03/10/2025 8:30 AM EDT Clinical Support [facility] H[facility]ology/BMT and Cellular Therapy Program [address] [address] 03/10/2025 9:00 AM EDT Office Visit [facility] Hematology/BMT and Cellular Therapy Program [address] [address] Isaura Wynn, LABORATORY MECHANICAL TECHNICIAN 800 [facility] [address] [place] [address] 03/10/2025 11:20 AM EDT Office Visit [facility] Head, Neck & Respiratory 800 [facility], 2nd [place] [address] Elsa Razo, LABORATORY MECHANICAL TECHNICIAN [address] [place] [address] Pending Results Name Type Priority Associated Diagnoses Date/Time Bone marrow exam Pathology and Cytology Routine Myelodysplasia (myelodysplastic syndrome) ([facility]) 02/02/2025 9:50 AM EDT Leukemia/Lymphoma - Immunophenotyping by Flow Cytometry Lab Routine Myelodysplasia (myelodysplastic syndrome) ([facility]) 02/02/2025 9:50 AM EDT Scheduled Orders Name Type Priority Associated Diagnoses Order Schedule CBC and differential Lab Routine Myelodysplasia (myelodysplastic syndrome) ([facility]) Expected: 01/20/2025, Expires: 01/20/2026 Comprehensive metabolic panel Lab Routine Myelodysplasia (myelodysplastic syndrome) ([facility]) Expected: 01/20/2025, Expires: 01/20/2026 CBC and differential Lab Routine Myelodysplasia (myelodysplastic syndrome) ([facility]) Expected: 01/22/2025, Expires: 01/22/2026 CBC and differential Lab Routine Myelodysplasia (myelodysplastic syndrome) ([facility]) Expected: 01/24/2025, Expires: 01/24/2026 CBC and differential Lab Routine Myelodysplasia (myelodysplastic syndrome) ([facility]) Expected: 01/27/2025, Expires: 01/27/2026 Comprehensive metabolic panel Lab Routine Myelodysplasia (myelodysplastic syndrome) ([facility]) Expected: 01/27/2025, Expires: 01/27/2026 CBC and differential Lab Routine Myelodysplasia (myelodysplastic syndrome) ([facility]) Expected: 01/29/2025, Expires: 01/29/2026 CBC and differential Lab Routine Myelodysplasia (myelodysplastic syndrome) ([facility]) Expected: 01/31/2025, Expires: 01/31/2026 CBC and differential Lab Routine Myelodysplasia (myelodysplastic syndrome) ([facility]) Expected: 02/03/2025, Expires: 02/03/2026 Comprehensive metabolic panel Lab Routine Myelodysplasia (myelodysplastic syndrome) ([facility]) Expected: 02/03/2025, Expires: 02/03/2026 CBC and differential Lab Routine Myelodysplasia (myelodysplastic syndrome) ([facility]) Expected: 02/05/2025, Expires: 02/05/2026 CBC and differential Lab Routine Myelodysplasia (myelodysplastic syndrome) ([facility]) Expected: 02/07/2025, Expires: 02/07/2026 Bone marrow exam Pathology and Cytology Routine Myelodysplasia (myelodysplastic syndrome) ([facility]) Expected: 01/13/2025 (Approximate), Expires: 07/17/2026 Leukemia/Lymphoma - Immunophenotyping by Flow Cytometry Lab Routine Myelodysplasia (myelodysplastic syndrome) (CMS/HCC) Expected: 01/13/2025 (Approximate), Expires: 07/17/2026 Cytogenetics Testing, Oncology Lab Routine Myelodysplasia (myelodysplastic syndrome) (CMS/HCC) Expected: 01/13/2025 (Approximate), Expires: 07/17/2026 documented as of this encounter Procedures Procedure Name Priority Date/Time Associated Diagnosis Comments CBC WITH AUTO DIFFERENTIAL Routine 01/13/2025 10:02 AM EDT Myelodysplasia (myelodysplastic syndrome) (CMS/HCC) COMPREHENSIVE METABOLIC PANEL, PLASMA Routine 01/13/2025 10:02 AM EDT Myelodysplasia (myelodysplastic syndrome) (CMS/HCC) documented in this encounter Results * CT Guided Asp and Biopsy Bone Marrow (02/02/2025 10:00 AM EDT) Anatomical Region Laterality Modality Pelvis Computed Tomogra phy Impressions 02/02/2025 7:05 PM EDT Successful percutaneous CT guided bone marrow aspiration and bone biopsy via a posterior right iliac approach. PLAN: -Standard postprocedural monitoring while in recovery -Patient will follow-up with ordering provider for biopsy results CRITICAL RESULT: No. COMMUNICATION: Per this written report. Drafted by Elisha Bergman MD on 02/02/2025 7:02 PM Final report signed by Elisha Bergman MD on 02/02/2025 7:05 PM Narrative 02/02/2025 7:05 PM EDT CLINICAL INDICATION: 69 y.o. male with PMH of myelodysplastic syndrome/acute myeloid leukemia. He has been referred to [facility] by oncologist Dr. Vargas for repeat BM evaluation after he was unresponsive to Azacitidine / Venetoclax. Patient presents for image guided bone marrow aspiration and bone biopsy. TECHNIQUE: Internal Security Manager: Elisha Bergman M.D. Secondary [employer] Practitioner: Sara Godwin MS Nurse: Christelle Santillan Technologist: Low Christy Rad Dose (DLP): 196 mGy-cm Medications: IV conscious sedation with continuous physiologic monitoring provided by a qualified healthcare professional using Versed 2 mg IV and Fentanyl 100 mcg IV. 1% Lidocaine SQ. Antibiotics: None. Duration of Conscious Sedation: Time out: 0942 hours close out: 1000 hours Procedure: After discussion of risks and benefits, informed written consent was obtained. Appropriate time out was done to confirm patient identity and planned procedure. Strict hand hygiene protocol was observed. All personnel in the room were attired in surgical hat and mask. The operators were in surgical hat, mask, sterile gloves, and sterile gowns. The site was prepped with 2% chlorhexidine for cutaneous antisepsis followed by sterile barrier draping. The patient was placed prone on the CT table and initial scanning carried out to evaluate for procedure planning. The skin overlying the planned tract was prepped and draped, and local anesthetic administered. A small dermatotomy was made at the procedure site. Under CT guidance and coaxial technique, a 10-gauge guide needle was advanced to the periosteum and the inner needle was removed. Through the guide needle, a 12-gauge biopsy needle was advanced into the posterior right ilium. CT images obtained during the procedure confirm satisfactory position of the guide and biopsy needle. A total of 30cc of bone marrow and 1 core bone sample were obtained. Upon completion of the procedure, the needle was removed and hemostasis was achieved with several minutes of manual compression at the procedural site. The patient tolerated the procedure well, and was transferred back to the recovery area in good condition. COMPARISON: None. FINDINGS: Appropriately positioned guide and biopsy needles. COMPLICATION: No. Procedure Note Elisha Bergman MD - 02/02/2025 CLINICAL INDICATION: 69 y.o. male with PMH of myelodysplastic syndrome/acute myeloid leukemia.He has been referred to [facility] by oncologist Dr. Vargas for repeat BMevaluation after he was unresponsive to Azacitidine / Venetoclax. Patientpresents for image guided bone marrow aspiration and bone biopsy. TECHNIQUE: Internal Security Manager: Elisha Bergman M.D. Secondary Solar Electric Practitioner: Sara Godwin MS Nurse: Christelle Santillan Technologist: Low Christy Rad Dose (DLP): 196 mGy-cm Medications: IV conscious sedation with continuous physiologic monitoringprovided by a qualified healthcare professional using Versed 2 mg IV andFentanyl 100 mcg IV. 1% Lidocaine SQ. Antibiotics: None. Duration of Conscious Sedation: Time out: 941 hours close out: 1000hours Procedure: After discussion of risks and benefits, informed written consent wasobtained. Appropriate time out was done to confirm patient identity andplanned procedure. Strict hand hygiene protocol was observed. All personnel in the room wereattired in surgical hat and mask. The operators were in surgical hat,mask, sterile gloves, and sterile gowns. The site was prepped with 2%chlorhexidine for cutaneous antisepsis followed by sterile barrierdraping. The patient was placed prone on the CT table and initial scanning carriedout to evaluate for procedure planning. The skin overlying the plannedtract was prepped and draped, and local anesthetic administered. A smalldermatotomy was made at the procedure site. Under CT guidance and coaxialtechnique, a 10-gauge guide needle was advanced to the periosteum and theinner needle was removed. Through the guide needle, a 12-gauge biopsyneedle was advanced into the posterior right ilium. CT images obtainedduring the procedure confirm satisfactory position of the guide and biopsyneedle. A total of 30cc of bone marrow and 1 core bone sample were obtained. Uponcompletion of the procedure, the needle was removed and hemostasis wasachieved with several minutes of manual compression at the proceduralsite. The patient tolerated the procedure well, and was transferred backto the recovery area in good condition. COMPARISON: None. FINDINGS: Appropriately positioned guide and biopsy needles. COMPLICATION: No. IMPRESSION: Successful percutaneous CT guided bone marrow aspiration and bone biopsyvia a posterior right iliac approach. PLAN: -Standard postprocedural monitoring while in recovery -Patient will follow-up with ordering provider for biopsy results CRITICAL RESULT: No. COMMUNICATION: Per this written report. Drafted by Elisha Bergman MD on 02/02/2025 7:02 PM Final report signed by Elisha Bergman MD on 02/02/2025 7:05 PM Virgen Vargas MD [facility] CT PROCEDURES Final Resul t * (ABNORMAL) CBC and differential (01/17/2025 8:03 AM EDT) WBC Count 0.54(LL) 3.70 - 10.30 10*3/uL LAB HEMATOLOGY METHOD 01/17/2025 9:41 AM EDT [facility] RBC Count 2.55(L) 4.60 - 6.10 10*6/uL LAB HEMATOLOGY METHOD 01/17/2025 9:41 AM EDT [facility] HGB 7.6(L) 13.7 - 17.5 g/dL LAB HEMATOLOGY METHOD 01/17/2025 9:41 AM EDT [facility] HCT 21.6(L) 40.0 - 51.0 % LAB HEMATOLOGY METHOD 01/17/2025 9:41 AM EDT [facility] Platelet Count 23(L) 155 - 369 10*3/uL LAB HEMATOLOGY METHOD 01/17/2025 9:41 AM EDT [facility] MCV 85 79 - 98 fL LAB HEMATOLOGY METHOD 01/17/2025 9:41 AM EDT [facility] MCH 29.8 26.0 - 32.0 pg LAB HEMATOLOGY METHOD 01/17/2025 9:41 AM EDT [facility] MCHC 35.2 30.7 - 35.5 g/dL LAB HEMATOLOGY METHOD 01/17/2025 9:41 AM EDT [facility] RDW 14.2 11.5 - 14.5 % LAB HEMATOLOGY METHOD 01/17/2025 9:41 AM EDT [facility] MPV 9.0 8.8 - 12.5 fL LAB HEMATOLOGY METHOD 01/17/2025 9:41 AM EDT [facility] nRBC 0.0 <=0.0 per 100 WBCs LAB HEMATOLOGY METHOD 01/17/2025 9:41 AM EDT [facility] Differential Type Automated LAB HEMATOLOGY METHOD 01/17/2025 9:41 AM EDT [facility] Neutrophils % 7 % LAB HEMATOLOGY METHOD 01/17/2025 9:41 AM EDT [facility] Lymphocytes % 91 % LAB HEMATOLOGY METHOD 01/17/2025 9:41 AM EDT [facility] Monocytes % 2 % LAB HEMATOLOGY METHOD 01/17/2025 9:41 AM EDT [facility] Eosinophils % 0 % LAB HEMATOLOGY METHOD 01/17/2025 9:41 AM EDT [facility] Basophils % 0 % LAB HEMATOLOGY METHOD 01/17/2025 9:41 AM EDT [facility] Immature Granulocytes % 0 % LAB HEMATOLOGY METHOD 01/17/2025 9:41 AM EDT [facility] Neutrophils Absolute 0.04(LL) 1.60 - 6.10 10*3/uL LAB HEMATOLOGY METHOD 01/17/2025 9:41 AM EDT [facility] Lymphocytes Absolute 0.49(L) 1.20 - 3.90 10*3/uL LAB HEMATOLOGY METHOD 01/17/2025 9:41 AM EDT [facility] Monocytes Absolute 0.01(L) 0.30 - 0.90 10*3/uL LAB HEMATOLOGY METHOD 01/17/2025 9:41 AM EDT [facility] Eosinophils Absolute 0.00 0.00 - 0.50 10*3/uL LAB HEMATOLOGY METHOD 01/17/2025 9:41 AM EDT [facility] Basophils Absolute 0.00 0.00 - 0.10 10*3/uL LAB HEMATOLOGY METHOD 01/17/2025 9:41 AM EDT [facility] Immature Granulocytes Absolute 0.00 0.00 - 0.06 10*3/uL LAB HEMATOLOGY METHOD 01/17/2025 9:41 AM EDT [facility] Blood Blood sample taken from central line / Unknown ([place]) Long-term Catheter / Unknown 01/17/2025 8:03 AM EDT 01/17/2025 8:07 AM EDT Narrative [facility] - 01/17/2025 9:41 AM EDT Therapeutic decision making should be based on absolute values, rather than percentages. Virgen Vargas MD LAB BLOOD ORDERABLES Final Re sult [facility] [address] [place] [address] * LACTATE DEHYDROGENASE (01/15/2025 8:17 AM EDT) LDH, Plasma 192 116 - 250 U/L 01/15/2025 9:19 AM EDT [facility] Blood Blood sample taken from central line / Unknown ([place]) Long-term Catheter / Unknown 01/15/2025 8:17 AM EDT 01/15/2025 8:47 AM EDT Virgen Vargas MD LAB BLOOD ORDERABLES Final Re sult Performing Organization Address [facility]/ZIP Co de Phone Number [facility] [address] [place] [address] * Magnesium (01/15/2025 8:17 AM EDT) Magnesium, Plasma 2.2 1.9 - 2.4 mg/dL 01/15/2025 9:19 AM EDT [facility] Blood Blood sample taken from central line / Unknown ([place]) Long-term Catheter / Unknown 01/15/2025 8:17 AM EDT 01/15/2025 8:47 AM EDT Virgen Vargas MD LAB BLOOD ORDERABLES Final Re sult Performing Organization Address [facility] Co de Phone Number [facility] [address] [place] [address] * Phosphorus (01/15/2025 8:17 AM EDT) Phosphorus, Plasma 3.1 2.5 - 4.5 mg/dL 01/15/2025 9:19 AM EDT [facility] Blood Blood sample taken from central line / Unknown ([place]) Long-term Catheter / Unknown 01/15/2025 8:17 AM EDT 01/15/2025 8:47 AM EDT Virgen Vargas MD LAB BLOOD ORDERABLES Final Re sult Performing Organization Address [facility]/ZIP Co de Phone Number [facility] [address] [place] [address] * (ABNORMAL) Uric acid (01/15/2025 8:17 AM EDT) Uric Acid, Plasma 3.0(L) 3.7 - 8.0 mg/dL 01/15/2025 9:19 AM EDT [facility] Blood Blood sample taken from central line / Unknown (Port) Long-term Catheter / Unknown 01/15/2025 8:17 AM EDT 01/15/2025 8:47 AM EDT Virgen Vargas MD LAB BLOOD ORDERABLES Final Re sult [facility] [address] [place] [address] * (ABNORMAL) BASIC METABOLIC PANEL (01/15/2025 8:17 AM EDT) Glucose, Plasma 96 74 - 99 mg/dL 01/15/2025 9:19 AM EDT [facility] BUN, Plasma 12 8 - 23 mg/dL 01/15/2025 9:19 AM EDT [facility] Creatinine, Plasma 0.71 0.70 - 1.20 mg/dL 01/15/2025 9:19 AM EDT [facility] BUN/Creatinine Ratio 17 01/15/2025 9:19 AM EDT [facility] Sodium, Plasma 139 136 - 145 mmol/L 01/15/2025 9:19 AM EDT [facility] Potassium, Plasma 4.1 3.6 - 4.9 mmol/L 01/15/2025 9:19 AM EDT [facility] Chloride, Plasma 108(H) 97 - 107 mmol/L 01/15/2025 9:19 AM EDT [facility] CO2, Plasma 21(L) 22 - 29 mmol/L 01/15/2025 9:19 AM EDT [facility] Anion Gap 10 6 - 16 mmol/L 01/15/2025 9:19 AM EDT [facility] Total Calcium, Plasma 8.9 8.9 - 10.2 mg/dL 01/15/2025 9:19 AM EDT [facility] eGFRcr 99.3 mL/min/1.7 3m*2 01/15/2025 9:19 AM EDT [facility] Comment:Reported eGFRcr in m L/min/1.73m2 is based the CKD-EPI 2020 equation that does not use a race coefficient. Blood Blood sample taken from central line / Unknown (Port) Long-term Catheter / Unknown 01/15/2025 8:17 AM EDT 01/15/2025 8:47 AM EDT Virgen Vargas MD LAB BLOOD ORDERABLES Final Re sult [facility] [address] [place] [address] * (ABNORMAL) CBC and differential (01/15/2025 8:17 AM EDT) WBC Count 0.53(LL) 3.70 - 10.30 10*3/uL LAB HEMATOLOGY METHOD 01/15/2025 11:53 AM EDT [facility] RBC Count 2.82(L) 4.60 - 6.10 10*6/uL LAB HEMATOLOGY METHOD 01/15/2025 11:53 AM EDT [facility] HGB 8.2(L) 13.7 - 17.5 g/dL LAB HEMATOLOGY METHOD 01/15/2025 11:53 AM EDT [facility] HCT 24.0(L) 40.0 - 51.0 % LAB HEMATOLOGY METHOD 01/15/2025 11:53 AM EDT [facility] Platelet Count 18(LL) 155 - 369 10*3/uL LAB HEMATOLOGY METHOD 01/15/2025 11:53 AM EDT [facility] MCV 85 79 - 98 fL LAB HEMATOLOGY METHOD 01/15/2025 11:53 AM EDT [facility] MCH 29.1 26.0 - 32.0 pg LAB HEMATOLOGY METHOD 01/15/2025 11:53 AM EDT [facility] MCHC 34.2 30.7 - 35.5 g/dL LAB HEMATOLOGY METHOD 01/15/2025 11:53 AM EDT [facility] RDW 14.2 11.5 - 14.5 % LAB HEMATOLOGY METHOD 01/15/2025 11:53 AM EDT [facility] MPV 9.3 8.8 - 12.5 fL LAB HEMATOLOGY METHOD 01/15/2025 11:53 AM EDT [facility] nRBC 0.0 <=0.0 per 100 WBCs LAB HEMATOLOGY METHOD 01/15/2025 11:53 AM EDT [facility] Differential Type Automated LAB HEMATOLOGY METHOD 01/15/2025 11:53 AM EDT [facility] Neutrophils % 8 % LAB HEMATOLOGY METHOD 01/15/2025 11:53 AM EDT [facility] Lymphocytes % 88 % LAB HEMATOLOGY METHOD 01/15/2025 11:53 AM EDT [facility] Monocytes % 4 % LAB HEMATOLOGY METHOD 01/15/2025 11:53 AM EDT [facility] Eosinophils % 0 % LAB HEMATOLOGY METHOD 01/15/2025 11:53 AM EDT [facility] Basophils % 0 % LAB HEMATOLOGY METHOD 01/15/2025 11:53 AM EDT [facility] Immature Granulocytes % 0 % LAB HEMATOLOGY METHOD 01/15/2025 11:53 AM EDT [facility] Neutrophils Absolute 0.04(LL) 1.60 - 6.10 10*3/uL LAB HEMATOLOGY METHOD 01/15/2025 11:53 AM EDT [facility] Lymphocytes Absolute 0.47(L) 1.20 - 3.90 10*3/uL LAB HEMATOLOGY METHOD 01/15/2025 11:53 AM EDT [facility] Monocytes Absolute 0.02(L) 0.30 - 0.90 10*3/uL LAB HEMATOLOGY METHOD 01/15/2025 11:53 AM EDT [facility] Eosinophils Absolute 0.00 0.00 - 0.50 10*3/uL LAB HEMATOLOGY METHOD 01/15/2025 11:53 AM EDT [facility] Basophils Absolute 0.00 0.00 - 0.10 10*3/uL LAB HEMATOLOGY METHOD 01/15/2025 11:53 AM EDT [facility] Immature Granulocytes Absolute 0.00 0.00 - 0.06 10*3/uL LAB HEMATOLOGY METHOD 01/15/2025 11:53 AM EDT [facility] Blood Blood sample taken from central line / Unknown ([place]) Long-term Catheter / Unknown 01/15/2025 8:17 AM EDT 01/15/2025 8:59 AM EDT [facility] - 01/15/2025 11:53 AM EDT Therapeutic decision making should be based on absolute values, rather than percentages. us Virgen Vargas MD LAB BLOOD ORDERABLES Final Re sult [facility] [address] [place] [address] * LACTATE DEHYDROGENASE (01/14/2025 9:06 AM EDT) LDH, Plasma 195 116 - 250 U/L 01/14/2025 9:58 AM EDT [facility] Blood Blood sample taken from central line / Unknown ([place]) Long-term Catheter / Unknown 01/14/2025 9:06 AM EDT 01/14/2025 9:25 AM EDT Virgen Vargas MD LAB BLOOD ORDERABLES Final Re sult [facility] [address] [place] [address] * Magnesium (01/14/2025 9:06 AM EDT) Magnesium, Plasma 2.2 1.9 - 2.4 mg/dL 01/14/2025 9:58 AM EDT [facility] Blood Blood sample taken from central line / Unknown ([place]) Long-term Catheter / Unknown 01/14/2025 9:06 AM EDT 01/14/2025 9:25 AM EDT Virgen Vargas MD LAB BLOOD ORDERABLES Final Re sult Performing Organization Address City/[facility]/ZIP Co de Phone Number [facility] [address] [place] [address] * Phosphorus (01/14/2025 9:06 AM EDT) Phosphorus, Plasma 3.6 2.5 - 4.5 mg/dL 01/14/2025 9:58 AM EDT [facility] Blood Blood sample taken from central line / Unknown ([place]) Long-term Catheter / Unknown 01/14/2025 9:06 AM EDT 01/14/2025 9:25 AM EDT Virgen Vargas MD LAB BLOOD ORDERABLES Final Re sult Performing Organization Address City/[facility]/ZIP Co de Phone Number [facility] [address] [place] [address] * (ABNORMAL) Uric acid (01/14/2025 9:06 AM EDT) Uric Acid, Plasma 3.0(L) 3.7 - 8.0 mg/dL 01/14/2025 9:58 AM EDT [facility] Blood Blood sample taken from central line / Unknown ([place]) Long-term Catheter / Unknown 01/14/2025 9:06 AM EDT 01/14/2025 9:25 AM EDT us Virgen Vargas MD LAB BLOOD ORDERABLES Final Re sult [facility] [address] [place] [address] * (ABNORMAL) BASIC METABOLIC PANEL (01/14/2025 9:06 AM EDT) Glucose, Plasma 101(H) 74 - 99 mg/dL 01/14/2025 9:58 AM EDT [facility] BUN, Plasma 9 8 - 23 mg/dL 01/14/2025 9:58 AM EDT [facility] Creatinine, Plasma 0.71 0.70 - 1.20 mg/dL 01/14/2025 9:58 AM EDT [facility] BUN/Creatinine Ratio 13 01/14/2025 9:58 AM EDT [facility] Sodium, Plasma 140 136 - 145 mmol/L 01/14/2025 9:58 AM EDT [facility] Potassium, Plasma 4.3 3.6 - 4.9 mmol/L 01/14/2025 9:58 AM EDT [facility] Chloride, Plasma 110(H) 97 - 107 mmol/L 01/14/2025 9:58 AM EDT [facility] CO2, Plasma 21(L) 22 - 29 mmol/L 01/14/2025 9:58 AM EDT [facility] Anion Gap 9 6 - 16 mmol/L 01/14/2025 9:58 AM EDT [facility] Total Calcium, Plasma 8.6(L) 8.9 - 10.2 mg/dL 01/14/2025 9:58 AM EDT [facility] eGFRcr 99.3 mL/min/1.7 3m*2 01/14/2025 9:58 AM EDT [facility] Comment:Reported eGFRcr in m L/min/1.73m2 is based the CKD-EPI 2020 equation that does not use a race coefficient. Blood Blood sample taken from central line / Unknown ([place]) Long-term Catheter / Unknown 01/14/2025 9:06 AM EDT 01/14/2025 9:25 AM EDT us Virgen Vargas MD LAB BLOOD ORDERABLES Final Re sult [facility] [address] [place] [address] * (ABNORMAL) Comprehensive Metabolic Panel, Plasma (01/13/2025 10:02 AM EDT) Glucose, Plasma 104(H) 74 - 99 mg/dL 01/13/2025 10:56 AM EDT [facility] BUN, Plasma 9 8 - 23 mg/dL 01/13/2025 10:56 AM EDT [facility] Creatinine, Plasma 0.72 0.70 - 1.20 mg/dL 01/13/2025 10:56 AM EDT [facility] BUN/Creatinine Ratio 13 01/13/2025 10:56 AM EDT [facility] Sodium, Plasma 140 136 - 145 mmol/L 01/13/2025 10:56 AM EDT [facility] Potassium, Plasma 4.5 3.6 - 4.9 mmol/L 01/13/2025 10:56 AM EDT [facility] Chloride, Plasma 109(H) 97 - 107 mmol/L 01/13/2025 10:56 AM EDT [facility] CO2, Plasma 21(L) 22 - 29 mmol/L 01/13/2025 10:56 AM EDT [facility] Anion Gap 10 6 - 16 mmol/L 01/13/2025 10:56 AM EDT [facility] Total Calcium, Plasma 8.9 8.9 - 10.2 mg/dL 01/13/2025 10:56 AM EDT [facility] Total Protein 6.9 6.3 - 7.9 g/dL 01/13/2025 10:56 AM EDT [facility] Albumin, Plasma 4.1 3.5 - 5.2 g/dL 01/13/2025 10:56 AM EDT [facility] AST, Plasma 84(H) 10 - 50 U/L 01/13/2025 10:56 AM EDT [facility] ALT, Plasma 95(H) 10 - 50 U/L 01/13/2025 10:56 AM EDT [facility] Alkaline Phosphatase, Plasma 83 40 - 115 U/L 01/13/2025 10:56 AM EDT [facility] Total Bilirubin, Plasma 0.7 0.2 - 1.1 mg/dL 01/13/2025 10:56 AM EDT [facility] eGFRcr 98.9 mL/min/1.7 3m*2 01/13/2025 10:56 AM EDT [facility] Comment:Reported eGFRcr in m L/min/1.73m2 is based the CKD-EPI 2020 equation that does not use a race coefficient. Blood Blood sample taken from central line / Unknown ([place]) Long-term Catheter / Unknown 01/13/2025 10:02 AM EDT 01/13/2025 10:24 AM EDT us Isaura Wynn LABORATORY MECHANICAL TECHNICIAN LAB BLOOD ORDERABLES Final Res ult [facility] [address] [place] [address] * (ABNORMAL) CBC and Differential (01/13/2025 10:02 AM EDT) WBC Count 0.63(LL) 3.70 - 10.30 10*3/uL LAB HEMATOLOGY METHOD 01/13/2025 10:50 AM EDT [facility] RBC Count 2.94(L) 4.60 - 6.10 10*6/uL LAB HEMATOLOGY METHOD 01/13/2025 10:50 AM EDT [facility] HGB 8.9(L) 13.7 - 17.5 g/dL LAB HEMATOLOGY METHOD 01/13/2025 10:50 AM [facility] HCT 24.7(L) 40.0 - 51.0 % LAB HEMATOLOGY METHOD 01/13/2025 10:[facility] Platelet Count 5(LL) 155 - 369 10*3/uL LAB HEMATOLOGY METHOD 01/13/2025 10:50 AM EDT [facility] MCV 84 79 - 98 fL LAB HEMATOLOGY METHOD 01/13/2025 10:50 AM T [facility] MCH 30.3 26.0 - 32.0 pg LAB HEMATOLOGY METHOD 01/13/2025 10:50 AM EDT [facility] MCHC 36.0(H) 30.7 - 35.5 g/dL LAB HEMATOLOGY METHOD 01/13/2025 10:50 [facility] RDW 14.4 11.5 - 14.5 % LAB HEMATOLOGY METHOD 01/13/2025 10:50 AM [facility] MPV LAB HEMATOLOGY METHOD 01/13/2025 10:50 AM [facility] Comment:Not Measured nRBC 0.0 <=0.0 per 100 WBCs LAB HEMATOLOGY METHOD 01/13/2025 10:50 AM [facility] Differential Type Automated LAB HEMATOLOGY METHOD 01/13/2025 10:50 AM [facility] Neutrophils % 3 % LAB HEMATOLOGY METHOD 01/13/2025 10:50 AM [facility] Lymphocytes % 94 % LAB HEMATOLOGY METHOD 01/13/2025 10:50 AM [facility] Monocytes % 3 % LAB HEMATOLOGY METHOD 01/13/2025 10:50 AM [facility] Eosinophils % 0 % LAB HEMATOLOGY METHOD 01/13/2025 10:50 AM EDT [facility] Basophils % 0 % LAB HEMATOLOGY METHOD 01/13/2025 10:50 AM [facility] Immature Granulocytes % 0 % LAB HEMATOLOGY METHOD 01/13/2025 10:50 AM [facility] Neutrophils Absolute 0.02(LL) 1.60 - 6.10 10*3/uL LAB HEMATOLOGY METHOD 01/13/2025 10:50 AM EDT [facility] Lymphocytes Absolute 0.59(L) 1.20 - 3.90 10*3/uL LAB HEMATOLOGY METHOD 01/13/2025 10:50 AM EDT [facility] Monocytes Absolute 0.02(L) 0.30 - 0.90 10*3/uL LAB HEMATOLOGY METHOD 01/13/2025 10:50 AM EDT [facility] Eosinophils Absolute [...] AM EDT 01/13/2025 10:15 AM EDT [facility] - 01/13/2025 10:50 AM EDT Therapeutic decision making should be based on absolute values, rather than percentages. Isaura Wynn APRN LAB BLOOD ORDERABLES Final Res ult [facility] [address] [place] [address] documented in this encounter Visit Diagnoses Diagnosis Myelodysplasia (myelodysplastic syndrome) (CMS/HCC)- Primary Myelodysplastic syndrome, unspecified Myelodysplasia (myelodysplastic syndrome) (CMS/HCC) Myelodysplastic syndrome, unspecified [...] documented as of this encounter Care Teams Barrel Planer Relationship Specialty Start Date End Date Zhao Harris MD [facility] [place] [address] PCP - General 12/03/20 documented as of this encounter
--- OUTSIDE RECORDS SUMMARY | 2025-01-13 11:30 | XMS_ITS | Encounter Summary ---
Author Organization [facility] Address [address] [place] [place] [address] Care Team Providers Care Rug Drying Machine Operator Name Role Phone Zhao Harris MD Primary Care Provider + [phone] Reason for Visit * Episode Based Medications (Routine) - Authorized Specialty Diagnoses / Procedures Referred By Justice mcgee Referred To Contact Diagnoses Myelodysplasia (myelodysplastic syndrome) (CMS/HCC) Procedures Decitabine Daily x 5 / Venetoclax Every 28 Days Virgen Vargas MD 800 [facility] [address] [address] Phone: tel: fax: Virgen Vargas MD 800 [facility] [address] [address] Phone: tel: fax: Referral ID Status Reason Start Date Expiration Date V isits Requested Visits Authorized [id number] Authorized 01/13/2025 07/15/2026 1 30 Encounter Details Date Type Department Care Team (Latest Contact Info) Description 01/13/2025 11:30 AM EDT - 01/13/2025 11:59 PM EDT Hospital Encounter PAV H Infusion 800 [place] [phone] Myelodysplasia (myelodysplastic syndrome) (CMS/HCC) (Primary Dx); Thrombocytopenia [...] drink first t manav in the morning (EYE-ADVANCED SOLUTIONS ARCHITECT) to steady your nerves or [...] 5 MG tabletIndications :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, unspecified vessel or [...] Hematology/BMT and Cellular Therapy Program [address] [address] 02/10/2025 9:00 AM EDT Office Visit PAV Hematology/BMT and Cellular Therapy Program [address] [address] Elaina Boss PA 800 [facility] [address] [place] [address] 02/10/2025 10:30 AM EDT Appointment PAV H Infusion 800 [place] [address] 02/11/2025 2:00 PM EDT Appointment [facility] Infusion Clinic 1 744 [place] [address] 02/12/2025 2:00 PM EDT Appointment [facility]fusion [facility] 1 744 [place] [address] 02/13/2025 2:00 PM EDT Appointment [facility] Infusion [facility] 1 744 [place] [address] 02/14/2025 2:00 PM EDT Appointment [facility] Infusion [facility] 1 744 [place] [address] 03/10/2025 8:30 AM EDT Clinical Support PAV CC Hematology/BMT and Cellular Therapy Program 750 [facility], [address] [place] [address] 03/10/2025 9:00 AM EDT Office Visit PAV CC Hematology/BMT and Cellular Therapy Program 750 [facility], [address] [place] [address] Isaura Wynn, CLAIMS CONSULTANT 800 [facility] [address] [place] [address] 03/10/2025 11:20 AM EDT Office Visit Pav CC Head, Neck & Respiratory 800 [facility], 2nd [place] [address] Elsa Razo, CLAIMS CONSULTANT 800 [place] [address] documented as of this encounter Procedures Procedure [...] Transfuse platelets (01/13/2025 2:36 PM EDT) Kayli Ospina PA BLOOD TRANSFUSION ORDERA BLES Final Result * Transfuse platelets: 1 Units (01/13/2025 2:36 PM EDT) Kayli Ospina PA BLOOD TRANSFUSION ORDERA BLES Final Result * (ABNORMAL) Platelet count (01/13/2025 2:07 PM EDT) Platelet Count 39(L) 155 - 369 10*3/uL LAB HEMATOLOGY METHOD 01/13/2025 2:37 PM EDT [facility] Blood Venous blood specimen / Unknown Venipuncture / Unknown 01/13/2025 2:07 PM EDT 01/13/2025 2:30 PM EDT Result [facility] Virgen Vargas MD LAB BLOOD ORDERABLES Final Re sult [facility] 800 [place] [address] * Exception to Standard Practice, Pathologist Interpretation [...] Final Result Performing Organization Address [facility] [[email or web address]] Co de Phone Number BLOOD BANK [address] * Prepare Leukocyte Reduced Platelets: 1 Units (01/13/2025 12:07 PM EDT) Product Code [id number] CH BLOO D BANK Dispense Status Transfused BLOOD BANK Blood Expiration Date [id number] BLOOD BANK Unit Number [id number] CH B LOOD BANK Product Blood Type 6200 BLOOD BANK Blood Type A+ BLOOD BANK Blood Venous blood specimen / Unknown Kayli CHIU BLOOD BANK PRODUCT ORDER VIKAS Final Result Performing Organization Address [facility] de Phone Number BLOOD BANK [address] documented in this encounter Visit Diagnoses [...] documented as of this encounter Care Teams Rug Drying Machine Operator Relationship Specialty Start Date End Date Zhao Harris MD [address] [place] [address] PCP - General 12/03/20 documented as of this encounter
--- OUTSIDE RECORDS SUMMARY | 2025-01-14 08:07 | XMS_ITS | Encounter Summary ---
Author Organization [facility] Address [address] [place] [address] Care Team Providers Care Manager Support Name Role Phone Zhao Harris MD Primary Care Provider + [phone] Reason for Visit * Episode Based Medications (Routine) - Authorized Specialty Diagnoses / Procedures Referred By Justice mcgee Referred To Contact Diagnoses Myelodysplasia (myelodysplastic syndrome) (CMS/HCC) Procedures Decitabine Daily x 5 / Venetoclax Every 28 Days Virgen Vargas MD [address] [address] Phone: tel: fax: Virgen Vargas MD [address] [address] Phone: tel: fax: Referral ID Status Reason Start Date Expiration Date V isits Requested Visits Authorized [id number] Authorized 01/13/2025 07/15/2026 1 30 Encounter Details Date Type Department Care Team (Latest Contact Info) Description 01/14/2025 8:07 AM EDT - 01/14/2025 11:59 PM EDT Hospital Encounter [facility] Infusion Clinic [address] [place] [phone] Myelodysplasia (myelodysplastic syndrome) (CMS/HCC) (Primary Dx) Discharge [...] drink first t manav in the morning (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 Contact Info) Description 02/10/2025 8:30 AM EDT Clinical Support [facility] Hematology/BMT and Cellular Therapy Program [address] [address] 02/10/2025 9:00 AM EDT Office Visit [facility] Hematology/BMT and Cellular Therapy Program [address] [phone] Elaina Boss PA 800 [facility] [address] [place] [phone] 02/10/2025 10:30 AM EDT Appointment [facility] H Infusion [address] [place] [address] 02/11/2025 2:00 PM EDT Appointment [facility] Infusion Clinic 1 [address] [place] [address] 02/12/2025 2:00 PM EDT Appointment [facility] Infusion [facility] 1 [address] [place] [address] 02/13/2025 2:00 PM EDT Appointment [facility] Infusion [facility] 1 [address] [place] [address] 02/14/2025 2:00 PM EDT Appointment [facility] Infusion [facility] 1 [address] [place] [address] 03/10/2025 8:30 AM EDT Clinical Support [facility] Hematology/BMT and Cellular Therapy Program [address] [address] 03/10/2025 9:00 AM EDT Office Visit [facility] Hematology/BMT and Cellular Therapy Program [address] [phone] Isaura Wynn, INSTRUCTOR PRODUCT INSPECTION 800 [facility] [address] [place] [phone] 03/10/2025 11:20 AM EDT Office Visit [facility] 800 [facility], 2nd [place] [address] Elsa Razo, INSTRUCTOR PRODUCT INSPECTION [address] [place] [phone] documented as of this encounter Procedures Procedure [...] LAB HEMATOLOGY METHOD 01/14/2025 10:14 AM EDT [facility] RBC Count 2.75(L) 4.60 - 6.10 10*6/uL LAB HEMATOLOGY METHOD 01/14/2025 10:14 AM EDT [facility] HGB 8.2(L) 13.7 - 17.5 g/dL LAB HEMATOLOGY METHOD 01/14/2025 10:14 AM EDT [facility] HCT 23.2(L) 40.0 - 51.0 % LAB HEMATOLOGY METHOD 01/14/2025 10:14 AM EDT [facility] Platelet Count 21(L) 155 - 369 10*3/uL LAB HEMATOLOGY METHOD 01/14/2025 10:14 AM EDT [facility] MCV 84 79 - 98 fL LAB HEMATOLOGY METHOD 01/14/2025 10:14 AM EDT [facility] MCH 29.8 26.0 - 32.0 pg LAB HEMATOLOGY METHOD 01/14/2025 10:14 AM EDT [facility] MCHC 35.3 30.7 - 35.5 g/dL LAB HEMATOLOGY METHOD 01/14/2025 10:14 AM EDT [facility] RDW 14.3 11.5 - 14.5 % LAB HEMATOLOGY METHOD 01/14/2025 10:14 AM [facility] MPV 8.1(L) 8.8 - 12.5 fL LAB HEMATOLOGY METHOD 01/14/2025 10:14 AM EDT [facility] nRBC 0.0 <=0.0 per 100 WBCs LAB [facility] Differential Type Automated LAB HEMATOLOGY METHOD 01/14/2025 10:14 AM EDT [facility] Neutrophils % 4 % LAB HEMATOLOGY METHOD 01/14/2025 10:14 AM EDT [facility] Lymphocytes % 92 % LAB HEMATOLOGY METHOD 01/14/2025 10:14 AM EDT [facility] Monocytes % 4 % LAB HEMATOLOGY METHOD 01/14/2025 10:14 AM EDT [facility] Eosinophils % 0 % LAB HEMATOLOGY METHOD 01/14/2025 10:14 AM EDT [facility] Basophils % 0 % LAB HEMATOLOGY METHOD [facility]/14[facility]2025 [facility] Immature Granulocytes % 0 % LAB HEMATOLOGY METHOD 01/14/2025 10:14 AM [facility] Neutrophils Absolute 0.02(LL) 1.60 - 6.10 10*3/uL LAB HEMATOLOGY METHOD 01/14/2025 10[facility] Lymphocytes Absolute 0.50(L) 1.20 - 3.90 10*3/uL LAB HEMATOLOGY METHOD 01/14/2025 10:14 AM EDT [facility] Monocytes Absolute 0.02(L) 0.30 - 0.90 10*3/uL LAB HEMATOLOGY METHOD 01/14/2025 10[facility] Eosinophils Absolute 0.00 0.00 - 0.50 10*3/uL LAB HEMATOLOGY METHOD 01/14/2025 10:14 AM [facility] Basophils Absolute 0.00 0.00 - 0.10 10*3/uL LAB HEMATOLOGY METHOD 01/14/2025 10:[facility] Immature Granulocytes Absolute 0.00 0.00 - 0.06 10*3/uL LAB HEMATOLOGY METHOD 01/14/2025 10:[facility] Blood Blood sample taken from central line / Unknown (Port) Long-term Catheter / Unknown 01/14/2025 9:06 AM EDT 01/14/2025 9:14 AM EDT [facility] - 01/14/2025 10:14 AM EDT Therapeutic decision making should be based on absolute values, rather than percentages. us Virgen Vargas MD LAB BLOOD ORDERABLES Final Re sult [facility] [address] [place] [address] * (ABNORMAL) BASIC METABOLIC PANEL (01/14/2025 9:06 AM EDT) Glucose, Plasma 101(H) 74 - 99 mg/dL 01/14/2025 9:58 AM EDT [facility] BUN, Plasma 9 8 - 23 mg/dL 01/14/2025 9:58 AM EDT [facility] Creatinine, Plasma 0.71 0.70 - 1.20 mg/dL 01/14/2025 9:58 AM EDT [facility] BUN/Creatinine Ratio 13 01/14/2025 9:58 AM EDT [facility] Sodium, Plasma 140 136 - 145 mmol/L 01/14/2025 9:58 AM EDT [facility] Potassium, Plasma 4.3 3.6 - 4.9 mmol/L 01/14/2025 9:58 AM EDT [facility] Chloride, Plasma 110(H) 97 - 107 mmol/L 01/14/2025 9:58 AM EDT [facility] CO2, Plasma 21(L) 22 - 29 mmol/L 01/14/2025 9:58 AM EDT [facility] Anion Gap 9 6 - 16 mmol/L 01/14/2025 9:58 AM EDT [facility] Total Calcium, Plasma 8.6(L) 8.9 - 10.2 mg/dL 01/14/2025 9:58 AM EDT [facility] eGFRcr 99.3 mL/min/1.7 3m*2 01/14/2025 9:58 AM EDT [facility] Comment:Reported eGFRcr in m L/min/1.73m2 is based the CKD-EPI 2020 equation that does not use a race coefficient. Blood Blood sample taken from central line / Unknown (Port) Long-term Catheter / Unknown 01/14/2025 9:06 AM EDT 01/14/2025 9:25 AM EDT Virgen Vargas MD LAB BLOOD ORDERABLES Final Re sult Performing Organization Address City/[facility]/ZIP Co de Phone Number [facility] [address] [place] [address] * (ABNORMAL) Uric acid (01/14/2025 9:06 AM EDT) Uric Acid, Plasma 3.0(L) 3.7 - 8.0 mg/dL 01/14/2025 9:58 AM EDT [facility] Blood Blood sample taken from central line / Unknown (Port) Long-term Catheter / Unknown 01/14/2025 9:06 AM EDT 01/14/2025 9:25 AM EDT Virgen Vargas MD LAB BLOOD ORDERABLES Final Re sult Performing Organization Address [facility]/ZIP Co de Phone Number [facility] [address] [place] [address] * Phosphorus (01/14/2025 9:06 AM EDT) Phosphorus, Plasma 3.6 2.5 - 4.5 mg/dL 01/14/2025 9:58 AM EDT [facility] Blood Blood sample taken from central line / Unknown (Port) Long-term Catheter / Unknown 01/14/2025 9:06 AM EDT 01/14/2025 9:25 AM EDT Virgen Vargas MD LAB BLOOD ORDERABLES Final Re sult [facility] [address] [place] [address] * Magnesium (01/14/2025 9:06 AM EDT) Magnesium, Plasma 2.2 1.9 - 2.4 mg/dL 01/14/2025 9:58 AM EDT [facility] Blood Blood sample taken from central line / Unknown (Port) Long-term Catheter / Unknown 01/14/2025 9:06 AM EDT 01/14/2025 9:25 AM EDT Virgen Vargas MD LAB BLOOD ORDERABLES Final Re sult Performing Organization Address [facility]/ZIP Co de Phone Number [facility] [address] [place] [address] * LACTATE DEHYDROGENASE (01/14/2025 9:06 AM EDT) LDH, Plasma 195 116 - 250 U/L 01/14/2025 9:58 AM EDT [facility] Blood Blood sample taken from central line / Unknown (Port) Long-term Catheter / Unknown 01/14/2025 9:06 AM EDT 01/14/2025 9:25 AM EDT Virgen Vargas MD LAB BLOOD ORDERABLES Final Re sult Performing Organization Address [facility] de Phone Number [facility] [address] [place] [address] documented in this encounter Visit Diagnoses Diagnosis [...] documented as of this encounter Care Teams Manager Support Relationship Specialty Start Date End Date Zhao Harris MD [address] [place] [address] PCP - General 12/03/20 documented as of this encounter
--- OUTSIDE RECORDS SUMMARY | 2025-01-15 08:11 | XMS_ITS | Encounter Summary ---
Author Organization [facility] Address [address] [place] [address] Care Team Providers Care Assistant Director Of Residence Life Name Role Phone Zhao Harris MD Primary Care Provider + [phone] Reason for Visit * Episode Based Medications (Routine) - Authorized Specialty Diagnoses / Procedures Referred By Justice mcgee Referred To Contact Diagnoses Myelodysplasia (myelodysplastic syndrome) (CMS/HCC) Procedures Decitabine Daily x 5 / Venetoclax Every 28 Days Virgen Vargas MD 800 [facility] Cancer [address] [address] Phone: tel: fax: Virgen Vargas MD [address] [address] Phone: tel: fax: Referral ID Status Reason Start Date Expiration Date V isits Requested Visits Authorized [id number] Authorized 01/13/2025 07/15/2026 1 30 Encounter Details Date Type Department Care Team (Latest Contact Info) Description 01/15/2025 8:11 AM EDT - 01/15/2025 9:57 AM EDT Hospital Encounter [facility] H Infusion 800 [place] [phone] Myelodysplasia (myelodysplastic syndrome) (CMS/HCC) (Primary Dx); Thrombocytopenia [...] drink first t manav in the morning (EYE-MOBILITY MANAGER) to steady your nerves or to [...] 5 MG tabletIndications :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, unspecified vessel or [...] Description 02/10/2025 8:30 AM EDT Clinical Support [facility] Hematology/BMT and Cellular Therapy Program [address] [place] [address] [place] [address] 02/10/2025 9:00 AM EDT Office Visit PAV Hematology/BMT and Cellular Therapy Program [address] [phone] Elaina Boss, PA 800 [facility] Cancer [address] [phone] 02/10/2025 10:30 AM EDT Appointment PAV H Infusion [address] [place] [phone] 02/11/2025 2:00 PM EDT Appointment [facility] Infusion Clinic 1 [address] [place] [phone] 02/12/2025 2:00 PM EDT Appointment [facility] Infusion Clinic 1 [address] [place] [phone] 02/13/2025 2:00 PM EDT Appointment [facility] Infusion Clinic 1 [address] [place] [address] 02/14/2025 2:00 PM EDT Appointment [facility] Infusion Clinic 1 [address] [place] [phone] 03/10/2025 8:30 AM EDT Clinical Support [facility] Hematology/BMT and Cellular Therapy Program [address] [phone] 03/10/2025 9:00 AM EDT Office Visit PAV Hematology/BMT and Cellular Therapy Program [address] [phone] Isaura Wynn, DIRECTOR OF DANCE 800 [facility] [address] [place] [address] 03/10/2025 11:20 AM EDT Office Visit Pav Head, Neck & Respiratory 800 [facility], [address]nd [place] [address] Elsa Razo, DIRECTOR OF DANCE [address] [place] [address] documented as of this encounter [...] platelets: 1 Units (01/15/2025 10:55 AM EDT) Kayli CHIU BLOOD [...] LES Final Result Performing Organization Address [facility] de Phone Number BLOOD BANK [address] * Prepare Leukocyte Reduced Platelets: 1 Units (01/15/2025 9:55 AM EDT) Product Code [id number] CH BLOO D BANK Dispense Status Transfused BLOOD BANK Blood Expiration Date [id number] BLOOD BANK Unit Number [id number] CH B LOOD BANK Product Blood Type 6200 BLOOD BANK Blood Type A+ BLOOD BANK Blood Venous blood specimen / Unknown Kayli CHIU BLOOD BANK PRODUCT ORDER VIKAS Final Result BLOOD BANK 800 [place] [address], * (ABNORMAL) CBC and differential (01/15/2025 8:17 AM EDT) WBC Count 0.53(LL) 3.70 - 10.30 10*3/uL LAB HEMATOLOGY METHOD 01/15/2025 11:53 AM EDT [facility] RBC Count 2.82(L) 4.60 - 6.10 10*6/uL LAB HEMATOLOGY METHOD 01/15/2025 11:53 AM EDT [facility] HGB 8.2(L) 13.7 - 17.5 g/dL LAB HEMATOLOGY METHOD 01/15/2025 11:53 AM EDT [facility] HCT 24.0(L) 40.0 - 51.0 % LAB HEMATOLOGY METHOD 01/15/2025 11:53 AM EDT [facility] Platelet Count 18(LL) 155 - 369 10*3/uL LAB HEMATOLOGY METHOD 01/15/2025 11:53 AM EDT [facility] MCV 85 79 - 98 fL LAB HEMATOLOGY METHOD 01/15/2025 11:53 AM EDT [facility] MCH 29.1 26.0 - 32.0 pg LAB HEMATOLOGY METHOD 01/15/2025 11:53 AM EDT [facility] MCHC 34.2 30.7 - 35.5 g/dL LAB HEMATOLOGY METHOD 01/15/2025 11:53 AM EDT [facility] RDW 14.2 11.5 - 14.5 % LAB HEMATOLOGY METHOD 01/15/2025 11:53 AM EDT [facility] MPV 9.3 8.8 - 12.5 fL LAB HEMATOLOGY METHOD 01/15/2025 11:53 AM EDT [facility] nRBC 0.0 <=0.0 per 100 WBCs LAB HEMATOLOGY METHOD 01/15/2025 11:53 AM EDT [facility] Differential Type Automated LAB HEMATOLOGY METHOD 01/15/2025 11:53 AM EDT [facility] Neutrophils % 8 % LAB HEMATOLOGY METHOD 01/15/2025 11:53 AM EDT [facility] Lymphocytes % 88 % LAB HEMATOLOGY METHOD 01/15/2025 11:53 AM EDT [facility] Monocytes % 4 % LAB HEMATOLOGY METHOD 01/15/2025 11:53 AM EDT [facility] Eosinophils % 0 % LAB HEMATOLOGY METHOD 01/15/2025 11:53 AM EDT [facility] Basophils % 0 % LAB HEMATOLOGY METHOD 01/15/2025 11:53 AM EDT [facility] Immature Granulocytes % 0 % LAB HEMATOLOGY METHOD 01/15/2025 11:53 AM EDT [facility] Neutrophils Absolute 0.04(LL) 1.60 - 6.10 10*3/uL LAB HEMATOLOGY METHOD 01/15/2025 11:53 AM EDT [facility] Lymphocytes Absolute 0.47(L) 1.20 - 3.90 10*3/uL LAB HEMATOLOGY METHOD 01/15/2025 11:53 AM EDT [facility] Monocytes Absolute 0.02(L) 0.30 - 0.90 10*3/uL LAB HEMATOLOGY METHOD 01/15/2025 11:53 AM EDT [facility] Eosinophils Absolute 0.00 0.00 - 0.50 10*3/uL LAB HEMATOLOGY METHOD 01/15/2025 11:53 AM EDT [facility] Basophils Absolute 0.00 0.00 - 0.10 10*3/uL LAB HEMATOLOGY METHOD 01/15/2025 11:53 AM EDT [facility] Immature Granulocytes Absolute 0.00 0.00 - 0.06 10*3/uL LAB HEMATOLOGY METHOD 01/15/2025 11:53 AM EDT [facility] Blood Blood sample taken from central line / Unknown (Port) Long-term Catheter / Unknown 01/15/2025 8:17 AM EDT 01/15/2025 8:59 AM EDT Narrative [facility] - 01/15/2025 11:53 AM EDT Therapeutic decision making should be based on absolute values, rather than percentages. us Virgen Vargas MD LAB BLOOD ORDERABLES Final Re sult [facility] [address] [place] [address] * (ABNORMAL) BASIC METABOLIC PANEL (01/15/2025 8:17 AM EDT) Glucose, Plasma 96 74 - 99 mg/dL 01/15/2025 9:19 AM EDT [facility] BUN, Plasma 12 8 - 23 mg/dL 01/15/2025 9:19 AM EDT [facility] Creatinine, Plasma 0.71 0.70 - 1.20 mg/dL 01/15/2025 9:19 AM EDT [facility] BUN/Creatinine Ratio 17 01/15/2025 9:19 AM EDT [facility] Sodium, Plasma 139 136 - 145 mmol/L 01/15/2025 9:19 AM EDT [facility] Potassium, Plasma 4.1 3.6 - 4.9 mmol/L 01/15/2025 9:19 AM EDT [facility] Chloride, Plasma 108(H) 97 - 107 mmol/L 01/15/2025 9:19 AM EDT [facility] CO2, Plasma 21(L) 22 - 29 mmol/L 01/15/2025 9:19 AM EDT [facility] Anion Gap 10 6 - 16 mmol/L 01/15/2025 9:19 AM EDT [facility] Total Calcium, Plasma 8.9 8.9 - 10.2 mg/dL 01/15/2025 9:19 AM EDT [facility] eGFRcr 99.3 mL/min/1.7 3m*2 01/15/2025 9:19 AM EDT [facility] [address] [place] [address] * (ABNORMAL) Uric acid (01/15/2025 8:17 AM EDT) Uric Acid, Plasma 3.0(L) 3.7 - 8.0 mg/dL 01/15/2025 9:19 AM EDT [facility] Blood Blood sample taken from central line / Unknown (Port) Long-term Catheter / Unknown 01/15/2025 8:17 AM EDT 01/15/2025 8:47 AM EDT Virgen Vargas MD LAB BLOOD ORDERABLES Final Re sult [facility] [address] [place] [address] * Phosphorus (01/15/2025 8:17 AM EDT) Phosphorus, Plasma 3.1 2.5 - 4.5 mg/dL 01/15/2025 9:19 AM EDT [facility] Blood Blood sample taken from central line / Unknown (Port) Long-term Catheter / Unknown 01/15/2025 8:17 AM EDT 01/15/2025 8:47 AM EDT Virgen Vargas MD LAB BLOOD ORDERABLES Final Re sult Performing Organization Address [facility]/ZIP Co de Phone Number [facility] [address] [place] [address] * Magnesium (01/15/2025 8:17 AM EDT) Magnesium, Plasma 2.2 1.9 - 2.4 mg/dL 01/15/2025 9:19 AM EDT [facility] Blood Blood sample taken from central line / Unknown (Port) Long-term Catheter / Unknown 01/15/2025 8:17 AM EDT 01/15/2025 8:47 AM EDT Virgen Vargas MD LAB BLOOD ORDERABLES Final Re sult [facility] [address] [place] [address] * LACTATE DEHYDROGENASE (01/15/2025 8:17 AM EDT) LDH, Plasma 192 116 - 250 U/L 01/15/2025 9:19 AM EDT [facility] Blood Blood sample taken from central line / Unknown (Port) Long-term Catheter / Unknown 01/15/2025 8:17 AM EDT 01/15/2025 8:47 AM EDT us Virgen Vargas MD LAB BLOOD ORDERABLES Final Re sult [facility] [address] [place] [address] documented in this encounter Visit Diagnoses Diagnosis [...] documented as of this encounter Care Teams Assistant Director Of Residence Life Relationship Specialty Start Date End Date Zhao Harris MD [address] [place] [address] PCP - General 12/03/20 documented as of this encounter
--- OUTSIDE RECORDS SUMMARY | 2025-01-15 09:58 | XMS_ITS | Encounter Summary ---
Author Organization Healthcare Address [address] [place] [address] Care Team Providers Care Food Science Technician Name Role Phone Zhao Harris MD Primary Care Provider [phone] Encounter Details Date Type Department Care Team (Latest Contact Info) Description 01/15/2025 9:58 AM EDT - 01/15/2025 11:59 PM EDT Hospital Encounter [facility] H Infusion [address] [place] [address] Discharge Disposition: Home or Self Care Social [...] drink first t manav in the morning (EYE-PROGRAM SUPPORT SPECIALIST) to steady your nerves or [...] 5 MG tabletIndications :Coronary artery disease involving [place] heart with angina pectoris, unspecified vessel or lesion type (CMS/HCC),Hyperte nsion, unspecified type Take 1 tablet (5 mg) by mouth daily. 90 tablet 3 09/11/2024 HYDROcodone-aceta minophen ([place]) 5-325 MG tablet Take 1 tablet by [...] MG SL tabletIndications :Coronary artery disease involving [place] heart with angina pectoris, unspecified vessel or [...] P[facility] Hematology/BMT and Cellular Therapy Program [address] [place] [address] [place] [address] 02/10/2025 9:00 AM EDT Office Visit [facility] Hematology/BMT and Cellular Therapy Program [address] [phone] Elaina Boss, PA 800 [facility] [address] [phone] 02/10/2025 10:30 AM EDT Appointment P[facility] Infusion 800 [place] [address] 02/11/2025 2:00 PM EDT Appointment [facility]fusion [facility] 1 744 [place] [address] 02/12/2025 2:00 PM EDT Appointment [facility] 1 [address] [place] [address] 02/13/2025 2:00 PM EDT Appointment [facility] 1 [address] [place] [address] 02/14/2025 2:00 PM EDT Appointment [facility] 1 [address] [place] [address] 03/10/2025 8:30 AM EDT Clinical Support [facility] Hematology/BMT and Cellular Therapy Program [address] [phone] 03/10/2025 9:00 AM EDT Office Visit [facility] Hematology/BMT and Cellular Therapy Program [address] [phone] Isaura Wynn, GENERAL MAINTENANCE ENGINEER 800 [facility] [address] [address] 03/10/2025 11:20 AM EDT Office Visit Pav CC Head, Neck & Respiratory 800 [facility], 2nd [place] [phone] Elsa Razo, GENERAL MAINTENANCE ENGINEER 800 [place] [address] documented as of this encounter [...] as of this encounter Care Teams Food Science Technician Relationship Specialty Start Date End Date Zhao Harris MD [address] [place] [address] PCP - General 12/03/20 documented as of this encounter
--- OUTSIDE RECORDS SUMMARY | 2025-01-16 07:55 | XMS_ITS | Encounter Summary ---
Author Organization [facility] Address [address] [place] [address] Care Team Providers Care Supervisor Model Making Name Role Phone Zhao Harris MD Primary Care Provider + [phone] Reason for Visit * Episode Based Medications (Routine) - Authorized Specialty Diagnoses / Procedures Referred By Justice mcgee Referred To Contact Diagnoses Myelodysplasia (myelodysplastic syndrome) (CMS/HCC) Procedures Decitabine Daily x 5 / Venetoclax Every 28 Days Virgen Vargas MD 800 [facility] [address] [address] Phone: tel: fax: Virgen Vargas MD [address] [address] Phone: tel: fax: Referral ID Status Reason Start Date Expiration Date V isits Requested Visits Authorized [id number] Authorized 01/13/2025 07/15/2026 1 30 Encounter Details Date Type Department Care Team (Latest Contact Info) Description 01/16/2025 7:55 AM EDT - 01/16/2025 11:59 PM EDT Hospital Encounter [facility] H Infusion 800 [place] [phone] Myelodysplasia (myelodysplastic syndrome) (CMS/HCC) (Primary Dx) Discharge [...] drink first t manav in the morning (EYE-SUPPORT REPRESENTATIVE) to steady your nerves or to [...] daily. 90 tablet 3 09/11/2024 HYDROcodone-aceta minophen ([place]) 5-325 MG tablet Take 1 tablet by [...] CC Hematology/BMT and Cellular Therapy Program [address] [place] [address] [place] [address] 02/10/2025 9:00 AM EDT Office Visit [facility] CC Hematology/BMT and Cellular Therapy Program [address] [place] [phone] Elaina Boss, ARAM [address] [phone] 02/10/2025 10:30 AM EDT Appointment [facility] H Infusion 800 [place] [address] 02/11/2025 2:00 PM EDT Appointment [facility] 1 [address] [place] [phone] 02/12/2025 2:00 PM EDT Appointment [facility] 1 [address] [place] [phone] 02/13/2025 2:00 PM EDT Appointment [facility] 1 [address] [place] [phone] 02/14/2025 2:00 PM EDT Appointment [facility] 1 [address] [place] [address] 03/10/2025 8:30 AM EDT Clinical Support [facility] Hematology/BMT and Cellular Therapy Program [address] [phone] 03/10/2025 9:00 AM EDT Office Visit P[facility] Hematology/BMT and Cellular Therapy Program [address] [phone] Isaura Wynn, SUPERINTENDENT PLANT PROTECTION 800 [facility] [address] [phone] 03/10/2025 11:20 AM EDT Office Visit Pav Head, Neck & Respiratory 800 [facility], 2nd [place] [phone] Elsa Razo, SUPERINTENDENT PLANT PROTECTION 800 [place] [phone] documented as of this encounter Procedures Procedure Name Priority Date/Time Associated Diagnosis Comments TYPE AND SCREEN Routine 01/16/2025 9:54 AM EDT PLATELET COUNT, BLOOD STAT 01/16/2025 8:12 AM EDT CBC W/O DIFFERENTIAL STAT Add-on 01/16/2025 8:12 AM EDT documented in this encounter Results * Type and Screen (01/16/2025 9:54 AM EDT) ABO/Rh O Negative 01/16/2025 9:51 AM EDT BLOOD BANK Antibody Screen Negative 01/16/2025 9:51 AM EDT BLOOD BANK Specimen Expiration 01/19/2025 23:59 01/16/2025 9:51 AM EDT BLOOD BANK Blood Venous blood specimen / Unknown Venipuncture / Unknown 01/16/2025 9:54 AM EDT 01/16/2025 10:02 AM EDT us Virgen Vargas MD LAB BLOOD BANK TEST ORDERABLE S Final Result BLOOD BANK 800 [place] [address], * (ABNORMAL) CBC W/O Differential (01/16/2025 8:12 [...] Final Re sult Performing Organization Address City/[facility] Co de Phone Number [facility] 800 [place] [address] * (ABNORMAL) Platelet count (01/16/2025 8:12 AM EDT) Platelet Count 39(L) 155 - 369 10*3/uL LAB HEMATOLOGY METHOD 01/16/2025 8:38 AM EDT [facility] Blood Blood sample taken from central line / Unknown Venipuncture / Unknown 01/16/2025 8:12 AM EDT 01/16/2025 8:27 AM EDT Virgen Vargas MD LAB BLOOD ORDERABLES Final Re sult Performing Organization Address City/[facility]/ZIP Co de Phone Number [facility] 800 [place] [address] documented in this encounter Visit Diagnoses Diagnosis [...] as of this encounter Care Teams Supervisor Model Making Relationship Specialty Start Date End Date Zhao Harris MD [address] [place] [address] PCP - General 12/03/20 documented as of this encounter
--- OUTSIDE RECORDS SUMMARY | 2025-01-17 07:45 | XMS_ITS | Encounter Summary ---
Author Organization [facility] Address [address] [place] [address] Care Team Providers Care Head Of Insight Name Role Phone Zhao Harris MD Primary Care Provider + [phone] Reason for Visit * Episode Based Medications (Routine) - Authorized Specialty Diagnoses / Procedures Referred By Justice mcgee Referred To Contact Diagnoses Myelodysplasia (myelodysplastic syndrome) (CMS/HCC) Procedures Decitabine Daily x 5 / Venetoclax Every 28 Days Virgen Vargas MD 800 [facility] Cancer [address] [address] Phone: tel: fax: Virgen Vargas MD [address] [address] Phone: tel: fax: Referral ID Status Reason Start Date Expiration Date V isits Requested Visits Authorized [id number] Authorized 01/13/2025 07/15/2026 1 30 Encounter Details Date Type Department Care Team (Latest Contact Info) Description 01/17/2025 7:45 AM EDT - 01/17/2025 11:59 PM EDT Hospital Encounter P[facility] H Infusion 800 [place] [phone] Myelodysplasia (myelodysplastic syndrome) (CMS/HCC) (Primary Dx); Thrombocytopenia [...] drink first t manav in the morning (EYE-KNIFE SHARPENER) to steady your nerves or to get [...] 5 MG tabletIndications :Coronary artery disease involving [place] heart with angina pectoris, unspecified vessel or lesion type (CMS/HCC),Hyperte nsion, unspecified type Take 1 tablet (5 mg) by mouth daily. 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 pectoris, unspecified vessel or [...] Encounters Date Type Department Care Team ([facility] Contact Info) Description 02/10/2025 8:30 AM EDT Clinical Support PAV Hematology/BMT and Cellular Therapy Program [address] [phone] 02/10/2025 9:00 AM EDT Office Visit [facility] Hematology/BMT and Cellular Therapy Program [address] [address] Elaina Boss, ARAM 800 [facility] [address] [place] [phone] 02/10/2025 10:30 AM EDT Appointment PAV H Infusion 800 [place] [address] 02/11/2025 2:00 PM EDT Appointment [facility] Infusion Clinic 1 744 [place] [address] 02/12/2025 2:00 PM EDT Appointment [facility] Infusion Clinic 1 744 [place] [address] 02/13/2025 2:00 PM EDT Appointment [facility] Infusion Clinic 1 744 [place] [address] 02/14/2025 2:00 PM EDT Appointment [facility] Infusion Clinic 1 744 [place] [address] 03/10/2025 8:30 AM EDT Clinical Support PAV Hematology/BMT and Cellular Therapy Program [address] [address] 03/10/2025 9:00 AM EDT Office Visit PAV Hematology/BMT and Cellular Therapy Program [address] [address] Isaura Wynn, INCLINED RAILWAY OPERATOR 800 [facility] [address] [place] [phone] 03/10/2025 11:20 AM EDT Office Visit Pav CC Head, Neck & Respiratory 800 [facility], 2nd [place] [address] Elsa Razo, INCLINED RAILWAY OPERATOR 800 [place] [address] documented as of this encounter Procedures Procedure [...] 1 Units, Irradiated (01/17/2025 8:56 AM EDT) [facility] Product Code [id number] BLOO D BANK Dispense Status Transfused BLOOD BANK Blood Expiration Date [id number] BLOOD BANK Unit Number [id number] B LOOD BANK Product Blood Type 9500 BLOOD BANK Blood Type O- BLOOD BANK Crossmatch Compatible BLOOD BANK Other Kayli CHIU BLOOD BANK PRODUCT ORDER VIKAS Final Result Performing Organization Address City/State/[facility] Co de Phone Number BLOOD BANK [address] * (ABNORMAL) CBC and differential (01/17/2025 8:03 AM EDT) WBC Count 0.54(LL) 3.70 - 10.30 10*3/uL LAB HEMATOLOGY METHOD 01/17/2025 9:41 AM EDT [facility] RBC Count 2.55(L) 4.60 - 6.10 10*6/uL LAB HEMATOLOGY METHOD 01/17/2025 9:41 AM EDT [facility] HGB 7.6(L) 13.7 - 17.5 g/dL LAB HEMATOLOGY METHOD 01/17/2025 9:41 AM EDT [facility] HCT 21.6(L) 40.0 - 51.0 % LAB HEMATOLOGY METHOD 01/17/2025 9:41 AM EDT [facility] Platelet Count 23(L) 155 - 369 10*3/uL LAB HEMATOLOGY METHOD 01/17/2025 9:41 AM EDT [facility] MCV 85 79 - 98 fL LAB HEMATOLOGY METHOD 01/17/2025 9:41 AM EDT [facility] MCH 29.8 26.0 - 32.0 pg LAB HEMATOLOGY METHOD 01/17/2025 9:41 AM EDT [facility] MCHC 35.2 30.7 - 35.5 g/dL LAB HEMATOLOGY METHOD 01/17/2025 9:41 AM EDT [facility] RDW 14.2 11.5 - 14.5 % LAB HEMATOLOGY METHOD 01/17/2025 9:41 AM EDT [facility] MPV 9.0 8.8 - 12.5 fL LAB HEMATOLOGY METHOD 01/17/2025 9:41 AM EDT [facility] nRBC 0.0 <=0.0 per 100 WBCs LAB HEMATOLOGY METHOD 01/17/2025 9:41 AM EDT [facility] Differential Type Automated LAB HEMATOLOGY METHOD 01/17/2025 9:41 AM EDT [facility] Neutrophils % 7 % LAB HEMATOLOGY METHOD 01/17/2025 9:41 AM EDT [facility] Lymphocytes % 91 % LAB HEMATOLOGY METHOD 01/17/2025 9:41 AM EDT [facility] Monocytes % 2 % LAB HEMATOLOGY METHOD 01/17/2025 9:41 AM EDT [facility] Eosinophils % 0 % LAB HEMATOLOGY METHOD 01/17/2025 9:41 AM EDT [facility] Basophils % 0 % LAB HEMATOLOGY METHOD 01/17/2025 9:41 AM EDT [facility] Immature Granulocytes % 0 % LAB HEMATOLOGY METHOD 01/17/2025 9:41 AM EDT [facility] Neutrophils Absolute 0.04(LL) 1.60 - 6.10 10*3/uL LAB HEMATOLOGY METHOD 01/17/2025 9:41 AM EDT [facility] Lymphocytes Absolute 0.49(L) 1.20 - 3.90 10*3/uL LAB HEMATOLOGY METHOD 01/17/2025 9:41 AM EDT [facility] Monocytes Absolute 0.01(L) 0.30 - 0.90 10*3/uL LAB HEMATOLOGY METHOD 01/17/2025 9:41 AM EDT [facility] Eosinophils Absolute 0.00 0.00 - 0.50 10*3/uL LAB HEMATOLOGY METHOD 01/17/2025 9:41 AM EDT [facility] Basophils Absolute 0.00 0.00 - 0.10 10*3/uL LAB HEMATOLOGY METHOD 01/17/2025 9:41 AM EDT [facility] Immature Granulocytes Absolute 0.00 0.00 - 0.06 10*3/uL LAB HEMATOLOGY METHOD 01/17/2025 9:41 AM EDT [facility] Blood Blood sample taken from central line / Unknown (Port) Long-term Catheter / Unknown 01/17/2025 8:03 AM EDT 01/17/2025 8:07 AM EDT Narrative [facility] - 01/17/2025 9:41 AM EDT Therapeutic decision making should be based on absolute values, rather than percentages. us Virgen Vargas MD LAB BLOOD ORDERABLES Final Re sult [facility] 800 [place] [address] documented in this encounter Visit Diagnoses Diagnosis [...] of this encounter Care Teams Head Of Insight Relationship Specialty Start Date End Date Zhao Harris MD [address] [place] [address] PCP - General 12/03/20 documented as of this encounter
--- OUTSIDE RECORDS SUMMARY | 2025-02-02 07:43 | XMS_ITS | Encounter Summary ---
Author Organization [facility] Address [address] [place] [address] Care Team Providers Care Dining Services Director Name Role Phone Zhao Harris MD Primary Care Provider [phone] Reason for Referral * Genetic Testing (Routine) - Closed Specialty Diagnoses / Procedures Referred By Justice mcgee Referred To Contact Lab Diagnoses Myelodysplasia (myelodysplastic syndrome) (CMS/HCC) Procedures Leukemia/Lymphoma - Immunophenotyping by Flow Cytometry Virgen Vargas MD [address] [facility] [address] [address] Phone: tel: fax: Referral ID Status Reason Start Date Expiration Date Visits Re quested Visits Authorized [id number] Closed 01/13/2025 07/15/2026 1 1 * Genetic Testing (Routine) - Closed Specialty Diagnoses / Procedures Referred By Contac t Referred To Contact Lab Diagnoses Myelodysplasia (myelodysplastic syndrome) (CMS/HCC) Procedures Bone marrow exam Virgen Vargas MD [address] [address] Phone: tel: fax: Referral ID Status Reason Start Date Expiration Date Visits Re quested Visits Authorized [id number] Closed 01/13/2025 07/15/2026 1 1 * Imaging (Routine) - Closed Specialty Diagnoses / Procedures Referred By Justice mcgee Referred To Contact Radiology Diagnoses Myelodysplasia (myelodysplastic syndrome) (CMS/HCC) Procedures CT Guided Asp and Biopsy Bone Marrow Consult to Interventional Radiology Virgen Vargas MD [address] [facility] [address] [place] [address] Phone: tel: fax: Referral ID Status Reason Start Date Expiration Date Visits Re quested Visits Authorized [id number] Closed 01/15/2025 07/17/2026 1 1 Reason for Visit * Imaging (Routine) - Closed Specialty Diagnoses / Procedures Referred By Justice mcgee Referred To Contact Radiology Diagnoses Myelodysplasia (myelodysplastic syndrome) (CMS/HCC) Procedures CT Guided Asp and Biopsy Bone Marrow Consult to Interventional Radiology Virgen Vargas MD [address] [facility] [address] [place] [address] Phone: tel: fax: Referral ID Status Reason Start Date Expiration Date Visits Re quested Visits Authorized [id number] Closed 01/15/2025 07/17/2026 1 1 Encounter Details Date Type Department Care Team (Latest Contact Info) Description 02/02/2025 7:43 AM EDT - 02/02/2025 11:59 PM EDT Hospital Encounter [facility] Interventional Radiology [address] [place] [address] Debra Vega, DERRICK HELPER Myelodysplasia (myelodysplastic syndrome) (CMS/HCC) Discharge Disposition: Home [...] first t manav in the morning (EYE-MANAGER OF CHANGE) to steady your nerves or to get [...] Sign Reading Time Taken Comments Blood Pressure 112/71 02/02/2025 10:07 AM EDT Pulse 66 02/02/2025 10:29 AM EDT Temperature 36.6 C (97.9 F) 02/02/2025 10:08 AM EDT Respiratory Rate 17 02/02/2025 10:29 AM EDT Oxygen Saturation 98% 02/02/2025 10:29 AM EDT Inhaled Oxygen Concentration - - Weight 80.3 kg (177 lb 0.5 oz) 02/02/2025 8:11 A M EDT Height 170.2 cm (5' 7 ) 02/02/2025 8:11 AM EDT Body Mass Index 27.73 02/02/2025 8:11 AM EDT documented in this encounter Discharge Instructions * Discharge Instructions* Debra Vega RN - 02/02/2025 10:24 AM EDT *Interventional Radiology* (IR) Questions/Concerns & Appointments If there are questions or concerns after discharge please call: [facility] Inter[facility]iology Clinic at [phone] Sunday - Sunday 8:00 AM to 4:30 PM After hours, weekends, and holidays please call [phone] and ask for the Interventional Radiology provider/Resident on-call For Emergencies please go to the nearest Emergency Room or dial 911. Intervention Radiology Appointments: If you need to reschedule a procedure, please call our Schedulers at [phone], option [phone]. If you need to schedule or reschedule a clinic appointment, please call [phone]. 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 30 tablet 3 10/23/2024 documented as of this encounter Miscellaneous Notes * Debra Wade RN - 02/02/2025 10:25 AM EDT Images from the original note were not included. [id number] Bone Marrow Aspiration and Biopsy Bone marrow is the soft, spongy part inside the body's larger bones. Bone marrow has both liquid and solid parts. It makes most of the body?s blood cells. Aspiration and biopsy are procedures done bya trained healthcare provider to take a sample of bone marrow out of the body. This is to be examined by a pathologist For each procedure, the healthcare provider puts a needle into one of your bones. Often this is done in the back of the hip bone. Then the provider takes a sample of bone marrow through the needle. If a sample of fluid and cells is taken, it's called bone marrow aspiration. If a solid sample of bone and bone marrow tissue is removed, it's called bone marrow biopsy. In each case, the samples aresent to a lab and studied. The procedures can be done alone, but are most often done together (bonemarrow exam). This sheet tells you more about what to expect. Why the procedures are done The procedures may be done for a number of reasons. They can help diagnose certain blood or bone marrow problems or infections. They may help find certain cancers, such as leukemia, multiple myeloma,or lymphoma. They can show if cancer in other areas of the body has spread to the bone marrow. Theycan be used during cancer treatment, such as chemotherapy, to see how well treatment is working. And they may be done before certain treatments, such as a stem cell transplant that need a bone marrowsample. Your healthcare provider will explain why you need the procedure and answer any questions you have. Preparing for the procedure Get ready for the procedure as your provider instructs you. Also: ?? Tell your healthcare provider: o What medicines you take. This includes blood thinners, such as aspirin. This also includes both prescription and [id number] medicines. And it includes herbs, vitamins, and other supplements. You may need to stop taking some or all of them before the procedure. o If you are allergic to any medicines. Also mention if you have ever had a reaction to medicines used during other tests or procedures in the past. o If you have any other allergies. o If you have a history of bleeding problems. o If you are or could be. ?? Follow any directions you?re given about medicines to stop taking and what to stop eating or drinking before the procedure. ?? Make arrangements for an adult to drive you home after the procedure. Also make sure you have someone who can help you at home. The day of the procedure The procedures can be done at a hospital, clinic, or healthcare provider?s office. They are done bya healthcare provider. Whether you?re having one or both procedures, plan to be at the facility for1 to 2 hours. You?ll likely go home the same day. Before the procedure begins What to expect before the procedure: ?? An IV (intravenous) line may be put into a vein in your arm or hand. This line gives you fluids and medicines. ?? You may be given medicine (sedative and pain reliever) to help you relax and reduce pain, if needed. This medicine is given by pill, shot, or through the IV line. During the procedure What to expect during the procedure: ?? You?ll lie on your side or your stomach if the sample will come from the hip bone. ?? The site to be used for the bone marrow samples is marked and cleaned. The most common site is the back of the hip bone. Less common sites include the front of the hip bone or breastbone. ?? Healthcare staff will inject a numbing medicine (local anesthesia) at the site. ?? The healthcare provider makes a small cut (incision) through the numbed skin. ?? One or both procedures are then done. Be sure to lie still for each procedure. It's normal to feel some pressure or pain during each procedure. However, do tell your healthcare provider if you experience severe pain, discomfort, or difficulty breathing during the procedure. o Bone marrow aspiration. The provider puts a thin hollow needle through the cut and into the bone.A syringe is then attached to the needle and used to remove a sample of bone marrow fluid and cells. You may feel a dull, deep, aching pain during the aspiration. o Bone marrow biopsy. The provider puts a different needle through the same cut and rotates it intothe bone. You may feel pain and pressure. A small amount of bone and marrow tissue is then removed. ?? The samples are sent to a lab to be assessed. ?? When the procedure is done, staff will put pressure on the site to stop bleeding. The site is then bandaged. After the procedure Most people can go home after a short time of observation. If you need it, you?ll be given medicineto manage pain. If you were given a sedative, you may be taken to a recovery room to rest until themedicine wears off. An adult family member or friend must drive you home afterward. Recovering at home Once at home, follow any instructions you?re given: ?? Take all medicines as directed. ?? Care for the procedure site as instructed. ?? Check for signs of infection at the procedure site (see below). Mild bruising is normal. ?? Keep the bandage clean and dry. Don't get the procedure site wet. Don't bathe or shower until your healthcare providers say it's OK to do so. If you wish, you may wash with a sponge or washcloth. ?? Don't do any heavy lifting or other strenuous activities as directed. Call the healthcare provider Call your healthcare provider if you have any of the following: ?? Fever of 100.4??F ( 38??C) or higher, or as directed by your healthcare provider ?? Signs of infection at the procedure site, such as increased redness or swelling, warmth, or bad-smelling drainage ?? Prolonged bleeding from the biopsy site ?? Increasing pain, swelling, or numbness around the biopsy site ?? New pain, numbness, or weakness in your leg on the side of the biopsy. ?? Severe pain in the back or abdomen Follow-up Your healthcare provider will discuss the results with you when they are ready. This is often within a week after the procedure. Risks and possible complications of these procedures Complications are rare but include: ?? Severe bleeding or bruising at the procedure site ?? Infection at the procedure site ?? Bone break (fracture) ?? Bone infection Last Reviewed Date: 2024 00:00:00 ?? [id number] [employer]. All rights reserved. This information is not intended as a substitute for professional medical care. Always follow your healthcare professional's instructions. * [facility] - Debra Vega RN - 02/02/2025 10:25 AM EDT Images from the original note were not included. [id number] Recovery After Procedural Sedation (Adult) You have been given medicine by vein to make you sleep during your procedure. This may have included both a pain medicine and sleeping medicine. You may have side effects, such as nausea, fatigue, orunsteadiness for up to 24 hours. You may also feel lightheaded. Some medical conditions, such as seizure disorders, spinal cord injuries, and some metabolic conditions, may change what your care needs are. If you have a medical condition, talk with your doctor about whether your care after the procedure might change. Home care Follow these guidelines when you get home: ?? For the next 8 or more hours, ask a trusted adult to watch over you. This person should make sure your condition is not getting worse, watch for problems, and keep you safe. ?? Don't drink any alcohol for the next 24 hours. ?? Don't drive, operate dangerous machinery, or make important business or personal decisions during the next 24 hours. ?? Take extra care when walking and moving, You may be at a higher risk of falling. ?? Follow any instructions you were given for eating and drinking. ?? Be sure to follow all after-care directions. Note: Your doctor may tell you not to take any medicine by mouth for pain or sleep in the next 4 hours. These medicines may react with the medicines you were given in the hospital. This could cause amuch stronger response than usual. Follow-up care Follow up with your doctor as advised. When to contact your doctor Have someone contact your doctor or seek medical care right away if: ?? Your drowsiness gets worse. ?? Your weakness or dizziness gets worse. ?? You have repeated vomiting. ?? Your speech is slurred, and others can't understand you. ?? You have severe or ongoing pain from the procedure that's not eased by the pain medicine (if prescribed). ?? You have a fever. ?? You have a new rash. Call 911 Have someone call 911 if: ?? You have trouble breathing. ?? You have trouble swallowing. ?? You have chest pain. ?? You lose consciousness or you can't be awakened. Last Reviewed Date: 2023 00:00:00 ?? [id number] [employer]. All rights reserved. This information is not intended as a substitute for professional medical care. Always follow your healthcare professional's instructions. * [facility] - Debra Vega RN - 02/02/2025 10:25 AM EDT Images from the original note were not included. 229 Conscious Sedation FAQ What is conscious sedation and why would I need it? Conscious sedation uses pain medicines and sedatives to reduce the pain and anxiety of a procedure.Under conscious sedation, you are usually able to talk and answer questions during the procedure. But, you will probably not have any memory of it. It is often used for outpatient procedures because it often lets you to go home the same day. What can I expect during conscious sedation? When you arrive at the holding area, several things will happen. ?? We will start an IV for medicines. You will be connected to a heart, blood pressure, and oxygen saturation monitor. ?? We will take your vital signs and a brief history, then ask you about medicines you take. ?? We will take you to have your procedure. You will receive the conscious sedation medicines through your IV. You will continue to be monitored during the entire procedure. ?? As mentioned above, you will likely able to talk and answer questions. But you may not have any memory of the procedure. What can I expect after the procedure? After the procedure, we will take you to a recovery area. Your heart rate and blood pressure will be checked often. As the sedation wears off, you may feel some pain or discomfort. We will ask you torate your pain on a scale between 0 and 10. You will receive pain medicine as needed. You may have nausea and vomiting, but these can be helped with medicine. You may need oxygen while you are wakingup. What kind of recovery can I expect after conscious sedation? You may feel drowsy after conscious sedation. You may also have muscle aches, sore throat, occasional dizziness and headaches. Nausea can occur. Vomiting is less common. These side effects usually goaway quickly in the hours after conscious sedation. Please plan to take it easy for a few days until you feel back to normal. When can I go home? Most patients are ready to go home in about 1 to 3 hours. You may need to drink fluids and use the bathroom before you can leave. What can I do when I go home and how long will it take for the sedation to wear off? It usually takes about 24 hours for the sedation to wear off. ?? Do not drive or run dangerous machines for 24 hours after receiving sedation medicines ?? Do not use alcohol or non-prescription drugs for 24 hours after receiving sedation medicines ?? Do not make important decisions for 24 hours after receiving sedation medicines You will receive specific instructions about your procedure and telephone numbers where your doctorcan be reached for any questions or concerns. * Post-Procedure Note - Elisha Bergman MD - 02/02/2025 9:30 AM EDT Vascular and Interventional Radiology Brief Postprocedure Note Attending: Dr. Bergman Trailer Assembler: Sara Godwin MS Pre-operative Diagnosis: Myelodysplastic syndrome/AML Post-operative Diagnosis: Same Type of Anesthesia: Conscious Sedation Description of Findings: Successful bone marrow aspiration and bone biopsy via a posterior right iliac approach Technical/Surgical Procedures Used: CT Specimen Obtained: Yes, 30cc bone marrow aspirate and 1 core bone sample Complications: None Estimated Blood Loss: minimal Procedure Events Event Event Time Sedation Start 02/02/2025 9:42 AM Sedation Stop 02/02/2025 10:00 AM See detailed result report with images in PACS. The patient tolerated the procedure well without incident or complication and is in stable condition. * Pre-Procedure Note - Sara Godwin - 02/02/2025 9:30 AM EDT Images from the original note were not included. INTERVENTIONAL RADIOLOGY SEDATION PRE-PROCEDURAL ASSESSMENT AND PLAN OF CARE Indication for procedure: The encounter diagnosis was Myelodysplasia (myelodysplastic syndrome) (CMS/HCC). 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 Allergies to medication: Furosemide Current medications: Current Medications[2] Relevant Labs: Lab Results Component Value Date CREATININE 0.71 01/15/2025 EGFR 99.3 01/15/2025 INR 1.1 11/26/2024 Planned Sedation/Anesthesia: Moderate Airway assessment: normal Mallampati Score: III (soft and hard palate and base of uvula visible) ASA: ASA 3 - Patient with moderate systemic disease with functional limitations Directed physical examination: Vitals: 02/02/25 0811 BP: 97/74 Pulse: 71 Resp: 12 Temp: 36.9 ??C (98.4 ??F) SpO2: 99% GENERAL: Awake, alert, NAD HEENT: NCAT NECK: No appreciable JVD; R side chest port in place CARDIAC: Regular rate, regular rhythm PULM: CTAB without increased work of breathing ABD: Soft, NT, ND; small reducible midline umbilical hernia EXT: Warm and well perfused, no LE edema SKIN: No lesions, small area of petechiae to medial aspect of LLE at the ankle NEURO: A&Ox4, moving all extremities spontaneously Benefits, risks and alternatives of procedure and planned sedation have been discussed with the patient and/or their key account representative. All questions answered and they agree to proceed. Sara Godwin, MS4 [1] Social History Tobacco Use Smoking Status Every Day Average packs/day: 1.5 packs/day for 15.0 years (22.5 ttl pk-yrs) Types: Cigarettes Start date: 1994 Passive exposure: Current Smokeless Tobacco Never [2] Current Outpatient Medications Medication Sig Dispense Refill acyclovir (Zovirax) 800 MG tablet Take 1 tablet (800 mg) by mouth in the morning and 1 tablet (800 mg) before bedtime. 60 tablet 3 amLODIPine (Norvasc) 2.5 MG tablet Take 1 tablet by mouth once daily 90 tablet 1 bisoprolol (Zebeta) 5 MG tablet Take 1 tablet (5 mg) by mouth daily. 90 tablet 3 HYDROcodone-acetaminophen ([place]) 5-325 MG tablet Take 1 tablet by mouth every 6 hours as needed. hydrocortisone 2.5 % cream Apply 1 Application topically as needed for rash. 20 g 0 levoFLOXacin (Levaquin) 500 MG tablet Take 1 tablet (500 mg) by mouth daily. 30 tablet 3 lidocaine-prilocaine (Emla) 2.5-2.5 % cream Apply 1 inch cream to port site and cover with a dressing 60 minutes prior to being accessed. 30 g 2 magic mouthwash BLM (FIRST-Mouthwash) suspension Use 15 mL in the mouth or throat 4 times a day as needed for mucositis (swish and swallow prn for mouth sores). Swish and swallow 15 mL 4 times daily prn for mouth sores 237 mL 2 nitroglycerin (Nitrostat) 0.[address] 1 tablet (0.4 mg) under the tongue every 5 (five) minutes as needed for chest pain. (Patient not taking: Reported on 01/13/2025) 10 tablet 11 posaconazole (Noxafil) [address] tablet Take [...] as needed for constipation. 30 tablet 3 Current Facility-Administered Medications Medication Dose Route Frequency Provider Last Rate Last Admin heparin flush (porcine) 100 UNIT/ML injection 500 Units 500 Units Intracatheter PRN Elisha Bergman MD sodium chloride 0.9 % flush 10 mL 10 mL Intravenous q12h Elisha Bergman MD And sodium chloride 0.9 % flush 10 mL 10 mL Intravenous PRN Elisha Bergman MD Cosigned by Elisha Bergman MD at 02/02/2025 9:17 AM EDT Associated attestation - Elisha Bergman MD - 02/02/2025 9:17 AM EDT I saw and evaluated the patient with the medical/FOOD SERVICES COORDINATOR/PA student. I discussed the case with the medical/FOOD SERVICES COORDINATOR/PA student and agree with the findings and plan as documented. I personally performed the Examand Medical Decision Making. * [facility]&P - Sara Godwin - 02/02/2025 9:30 AM EDT Images from the original note were not included. Subjective Chief complaint & History Of Present Illness Hugo Lyons is a 69 y.o. 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 Bone marrow biopsy in Aug 2024 showed high-grade myeloid neoplasm consistent with MDS. He subsequently underwent first cycle of azacitidine/venetoclax on 10/20/24 followed by repeat bone marrow biopsy showing 40-50% blasts. Cycle 2 of treatment occurred on 11/18/24. IR placed R side chest port on 12/01/24. He was referred to [facility] for second opinion due to high resistance of his cancer's genetic profile. He follows with Hematology with CBC three times/week. He has been referred to [facility] by oncologist Dr. Vargas for repeat BM evaluation after he was unresponsive to Azacitidine / Venetoclax. Primary team has decided to continue Venetoclax and begin Decitabine. He denies any N/V, CP, SOB, and has no other concerns today. Medical/Surgical/Social/Family History Past Medical History[1] Surgical History[2] Social History[3] Family History[4] Travel History Relevant International Travel History: Travel Screening No screening recorded since 01/31/25 0953 Travel History Travel since 01/02/25 No documented travel since 01/02/25 Relevant Domestic Travel History: n/a Immunizations VACCINE / DOSE DATE Flu 05/21/2020 Tetanus Pneumovax Shingles Allergies Furosemide Medications Current Medications[5] Objective 14pt ROS reviewed and is negative unless described above. PE General: resting comfortably, in no apparent distress HEENT: normocephalic, atraumatic, PERRL, conjunctiva clear, oropharynx unremarkable; R side port inplace Cardiovascular: regular rate and rhythm. Respiratory: without signs of respiratory distress. Abdomen: soft, nontender, nondistended, without masses; small reducible umbilical hernia present Extremities: no gross deformities, intact range of motion, without cyanosis or edema; small area ofpetechia to left medial malleolus Neuro: normal reactivity for age. Last Recorded Vitals There were no vitals taken for this visit. Results Review {Vanishing Link Review Results :[id number] I have reviewed the latest lab and imaging results. Assessment & Plan 69 y.o. male with PMH of myelodysplastic syndrome/acute myeloid leukemia. He has been referred to [facility] by oncologist Dr. Vargas for repeat BM evaluation after he was unresponsive to Azacitidine / Venetoclax. Patient presents for image guided bone marrow aspiration and bone biopsy. PLAN: Image guided bone marrow aspiration and bone biopsy Medically Ready for Discharge:Anticipated Today [1] Past Medical History: Diagnosis Date Arteriosclerotic cardiovascular disease Cancer (CMS/HCC) Chronic stable angina (CMS/HCC) Hypertension [2] Past Surgical History: Procedure Laterality Date JOINT REPLACEMENT Left left shoulder PORTACATH PLACEMENT 12/01/2024 TOTAL KNEE ARTHROPLASTY Right after broken patella [3] Social History Tobacco Use Smoking status: Every Day Average packs/day: 1.5 packs/day for 15.0 years (22.5 ttl pk-yrs) Types: Cigarettes Start date: 1994 Passive exposure: Current Smokeless tobacco: Never Vaping Use Vaping status: Never Used Substance Use Topics Alcohol use: Not Currently Alcohol/week: 6.0 standard drinks of alcohol Types: 6 Cans of beer per week Drug use: Never [4] Family History Problem Relation Name Age of Onset Diabetes Other Heart attack Other [5] Current Outpatient Medications Medication Sig Dispense Refill acyclovir (Zovirax) 800 MG tablet Take 1 tablet (800 mg) by mouth in the morning and 1 tablet (800 mg) before bedtime. 60 tablet 3 amLODIPine (Norvasc) 2.5 MG tablet Take 1 tablet by mouth once daily 90 tablet 1 bisoprolol (Zebeta) 5 MG tablet Take 1 tablet (5 mg) by mouth daily. 90 tablet 3 HYDROcodone-acetaminophen ([place]) 5-325 MG tablet Take 1 tablet by mouth every 6 hours as needed. hydrocortisone 2.5 % cream Apply 1 Application topically as needed for rash. 20 g 0 levoFLOXacin (Levaquin) 500 MG tablet Take 1 tablet (500 mg) by mouth daily. 30 tablet 3 lidocaine-prilocaine (Emla) 2.5-2.5 % cream Apply 1 inch cream to port site and cover with a dressing 60 minutes prior to being accessed. 30 g 2 magic mouthwash BLM (FIRST-Mouthwash) suspension Use 15 mL in the mouth or throat 4 times a day as needed for mucositis (swish and swallow prn for mouth sores). Swish and swallow 15 mL 4 times daily prn for mouth sores 237 mL 2 nitroglycerin (Nitrostat) 0.[address] 1 tablet (0.4 mg) under the tongue every 5 (five) minutes as needed for chest pain. (Patient not taking: Reported on 01/13/2025) 10 tablet 11 posaconazole (Noxafil) [address] tablet Take [...] as needed for constipation. 30 tablet 3 No current facility-administered medications for this encounter. Cosigned by Elisha Bergman MD at 02/02/2025 9:16 AM EDT Associated attestation - Elisha Bergman MD - 02/02/2025 9:16 AM EDT I saw and evaluated the patient with the medical/FOOD SERVICES COORDINATOR/PA student. I discussed the case with the medical/FOOD SERVICES COORDINATOR/PA student and agree with the findings and plan as documented. I personally performed the Examand Medical Decision Making. documented in this encounter Plan of Treatment Upcoming Encounters Date Type Department Care Team (Late st Contact Info) Description 02/10/2025 8:30 AM EDT Clinical Support [facility] Hematology/BMT and Cellular Therapy Program [address] [address] 02/10/2025 9:00 AM EDT Office Visit [facility] Hematology/BMT and Cellular Therapy Program [address] [address] Elaina Boss PA 800 [facility] [address] [place] [address] 02/10/2025 10:30 AM EDT Appointment [facility] H Infusion 800 [place] [address] 02/11/2025 2:00 PM EDT Appointment [facility] 1 [address] [place] [address] 02/12/2025 2:00 PM EDT Appointment [facility] 1 [address] [place] [address] 02/13/2025 2:00 PM EDT Appointment [facility] 1 [address] [place] [address] 02/14/2025 2:00 PM EDT Appointment [facility] 1 [address] [place] [address] 03/10/2025 8:30 AM EDT Clinical Support [facility] Hematology/BMT and Cellular Therapy Program 750 [facility], [address] [place] [place] [address] 03/10/2025 9:00 AM EDT Office Visit [facility] Hematology/BMT and Cellular Therapy Program 750 [facility], [address] [place] [address] Isaura Wynn, FRUIT BAR MAKER 800 [facility] [address]st [place] [address] 03/10/2025 11:20 AM EDT Office Visit Pav Head, Neck & Respiratory 800 [facility], 2nd [place] [address] Elsa Razo, FRUIT BAR MAKER 800 [place] [phone] Pending Results Name Type Priority Associated Diagnoses Date/Time Bone marrow exam Pathology and Cytology Routine Myelodysplasia (myelodysplastic syndrome) ([facility]/HCC) 02/02/2025 9:50 AM EDT Leukemia/Lymphoma - Immunophenotyping by Flow Cytometry Lab Routine Myelodysplasia (myelodysplastic syndrome) ([facility]) 02/02/2025 9:50 AM EDT Scheduled Orders Name Type Priority Associated Diagnoses Order Schedule Bone marrow exam Pathology and Cytology Timed Myelodysplasia (myelodysplastic syndrome) ([facility]/HCC) Once for 1 Occurrences starting 02/02/2025 until 02/02/2025, 1 completed Leukemia/Lymphoma - Immunophenotyping by Flow Cytometry Lab Timed Myelodysplasia (myelodysplastic syndrome) ([facility]) Once for 1 Occurrences starting 02/02/2025 until 02/02/2025, 1 completed documented as of this encounter Procedures Procedure Name Priority Date/Time Associated Diagnosis Comments CT GUIDED ASP AND BIOPSY BONE MARROW Routine 02/02/2025 10:00 AM EDT Myelodysplasia (myelodysplastic syndrome) ([facility]) documented in this encounter Results * CT [...] myeloid leukemia. He has been referred to [facility] by oncologist Dr. Vargas for repeat BM evaluation after he was unresponsive to Azacitidine / Venetoclax. Patient presents for image guided bone marrow aspiration and bone biopsy. TECHNIQUE: Him Manager: Elisha Bergman M.D. Secondary Guide Travel: Sara Godwin MS Nurse: Christelle Santillan Technologist: [...] syndrome/acute myeloid leukemia.He has been referred to [facility] by oncologist Dr. Vargas for repeat BMevaluation after he was unresponsive to Azacitidine / Venetoclax. Patientpresents for image guided bone marrow aspiration and bone biopsy. TECHNIQUE: Him Manager: Elisha Bergman M.D. Secondary Guide Travel: Sara Godwin MS Nurse: Christelle Santillan Technologist: Low Christy Rad Dose (DLP): 196 mGy-cm Medications: IV conscious sedation with continuous physiologic monitoringprovided by a qualified healthcare professional using Versed 2 mg IV andFentanyl 100 mcg IV. 1% Lidocaine SQ. Antibiotics: None. Duration of Conscious Sedation: Time out: 0942 hours close out: 1000hours Procedure: After discussion [...] on 02/02/2025 7:05 PM Virgen Vargas MD IMG CT PROCEDURES Final Resul t documented in this encounter Visit Diagnoses Diagnosis Myelodysplasia (myelodysplastic syndrome) ([facility]) Myelodysplastic syndrome, unspecified documented in this encounter Administered Medications Inactive Administered Medications - up to 3 most recent administrations Medication Order MAR Action Action Date Dose Rate Site fentaNYL (Sublimaze) injection Intravenous, As needed, Starting on Sun02/02/25 at 0942, Until Sun02/02/25 at 0953, Routine, Intraprocedure Given 02/02/2025 9:53 AM EDT 50 mcg Given 02/02/2025 9:42 AM EDT 50 mcg lidocaine (Xylocaine) 1 % injection Intradermal, As needed, Starting on Sun02/02/25 at 0949, Until Sun02/02/25 at 0949, Routine, Intraprocedure Given 02/02/2025 9:49 AM EDT 10 mL midazolam (Versed) injection Intravenous, As needed, Starting on Sun02/02/25 at 0942, Until Sun02/02/25 at 0952, Routine, Intraprocedure Given 02/02/2025 9:52 AM EDT 1 mg Given 02/02/2025 9:42 AM EDT 1 mg sodium chloride 0.9 % infusion Intravenous, Continuous PRN, Starting on Sun02/02/25 at 1002, Until Sun02/02/25 at 1002, Routine New Bag 02/02/2025 10:02 AM EDT 250 mL documented in this encounter Additional Health Concerns Assessment Noted Time PHQ-9 Depression Total Score: 0 09/11/19 9:15 AM EST A fall risk assessment has been complete d for the patient 01/17/2025 7:46 AM EDT A Body Mass Index follow-up plan has been documented for the patient 01/14/2025 10:46 AM EDT documented as of this encounter Care Teams Dining Services Director Relationship Specialty Start Date End Date Zhao Harris MD [address] [place] [address] PCP - General 12/03/20 documented as of this encounter
[2025-02-03] VITALS (19 sets, daily range): BP systolic 107–128; BP diastolic 54–65; PULSE 70–78; RESP 18; TEMP 36.6–36.9; O2SAT 98–100; BMI 31.3
--- OUTSIDE RECORDS SUMMARY | 2025-02-03 08:10 | XMS_ITS | Encounter Summary ---
Author Organization [facility] Address [address] [place] [address] Care Team Providers Care Script Worker Name Role Phone Zhao Harris MD Primary Care Provider [phone] Encounter Details Date Type Department Care Team [...] drink first t manav in the morning (EYE-CELLAR HAND) to steady your nerves or to [...] -2 Score 1 01/13/2025 10:14 AM EDT Gates Cecelia W * Calculated C-SSRS Risk Score [...] Hematology/BMT and Cellular Therapy Program [address] [place] [address] 02/10/2025 9:00 AM EDT Office Visit [facility] Hematology/BMT and Cellular Therapy Program [address] [address] Elaina Boss PA 800 [facility] [address] [place] [address] 02/10/2025 10:30 AM EDT Appointment [facility] H Infusion 800 [place] [address] 02/11/2025 2:00 PM EDT Appointment [facility] 1 744 [place] [address] 02/12/2025 2:00 PM EDT Appointment [facility] 1 744 [place] [address] 02/13/2025 2:00 PM EDT Appointment [facility] 1 7[address] [place] [address] 02/14/2025 2:00 PM EDT Appointment [facility] 1 744 [place] [address] 03/10/2025 8:30 AM EDT Clinical Support [facility] Hematology/BMT and Cellular Therapy Program [address] [address] 03/10/2025 9:00 AM EDT Office Visit [facility] Hematology/BMT and Cellular Therapy Program [address] [address] Isaura Wynn, FLATWORK WASHER 800 [facility] [address]st [place] [address] 03/10/2025 11:20 AM EDT Office Visit Pav CC Head, Neck & Respiratory 800 [facility], [address]nd [place] [address] Elsa Razo, FLATWORK WASHER 800 [place] [phone] documented as of this encounter Visit Diagnoses [...] documented as of this encounter Care Teams Script Worker Relationship Specialty Start Date End Date Zhao Harris MD 1210 [facility] [address], [place] [id number] PCP - General 12/03/20 documented as of this encounter
--- OUTSIDE RECORDS SUMMARY | 2025-02-03 08:11 | XMS_ITS | Encounter Summary ---
Author Organization [facility] Address [address] [place] [address] Care Team Providers Care Human Resources Hr Representative Name Role Phone Zhao Harris MD Primary Care Provider [phone] Reason for Visit * Reason Comments Med Refill Encounter Details Date Type Department Care Team ([facility] st Contact Info) Description 01/01/2025 Refill [facility] Edgar Bedford 800 [facility]. [address] [place] [address] Ra Best MD [address] [place] [address] Social History Tobacco Use Types Packs/Day Years [...] first t manav in the morning (EYE-LASER SPECIALIST) to steady your nerves or to [...] Team ([facility] st Contact Info) Description 02/10/2025 8:30 AM EDT Clinical Support [facility] Hematology/BMT and Cellular Therapy Program [address] [address] 02/10/2025 9:00 AM EDT Office Visit [facility] Hematology/BMT and Cellular Therapy Program [address] [address] Elaina Boss PA 800 [facility] [address] [place] [address] 02/10/2025 10:30 AM EDT Appointment [facility] H Infusion 800 [place] [address] 02/11/2025 2:00 PM EDT Appointment [facility] 1 7[address] [place] [address] 02/12/2025 2:00 PM EDT Appointment [facility] 1 7[address] [place] [address] 02/13/2025 2:00 PM EDT Appointment [facility] 1 744 [place] [address] 02/14/2025 2:00 PM EDT Appointment [facility] 1 4 [place] [address] 03/10/2025 8:30 AM EDT Clinical Support [facility] Hematology/BMT and Cellular Therapy Program [address] [phone] 03/10/2025 9:00 AM EDT Office Visit [facility] Hematology/BMT and Cellular Therapy Program [address] [place] [address] Isaura Wynn, OFFICE ADMINISTRATOR 800 [facility] [address] [place] [address] 03/10/2025 11:20 AM EDT Office Visit [facility] Head, Neck & Respiratory 800 [facility], 2nd [place] [address] Elsa Razo, OFFICE ADMINISTRATOR 800 [place] [address] documented as of this encounter [...] documented as of this encounter Care Teams Human Resources Hr Representative Relationship Specialty Start Date End Date Zhao Harris MD [address] [address] PCP - General 12/03/20 documented as of this encounter
--- OUTSIDE RECORDS SUMMARY | 2025-02-03 08:11 | XMS_ITS | Encounter Summary ---
Author Organization [facility] Address [address] [place] [address] Care Team Providers Care Floorwalker Name Role Phone Zhao Harris MD Primary Care Provider [phone] Encounter Details Date Type Department Care Team [...] drink first t manav in the morning (EYE-CASHIER RECEPTIONIST) to steady your nerves or to [...] ([facility] st Contact Info) Description 02/10/2025 8:30 AM EDT Clinical Support [facility] Hematology/BMT and Cellular Therapy Program [address] [address] 02/10/2025 9:00 AM EDT Office Visit [facility] Hematology/BMT and Cellular Therapy Program [address] [address] Elaina Boss, PA 800 [facility] [address] [address] 02/10/2025 10:30 AM EDT Appointment [facility] H Infusion 800 [place] [address] 02/11/2025 2:00 PM EDT Appointment [facility] 1 [address] [place] [address] 02/12/2025 2:00 PM EDT Appointment [facility] 1 [address] [place] [address] 02/13/2025 2:00 PM EDT Appointment [facility] 1 [address] [place] [address] 02/14/2025 2:00 PM EDT Appointment [facility] 1 [address] [place] [address] 03/10/2025 8:30 AM EDT Clinical Support [facility] Hematology/BMT and Cellular Therapy Program [address] [address] 03/10/2025 9:00 AM EDT Office Visit [facility] Hematology/BMT and Cellular Therapy Program [address] [address] Isaura Wynn, ICE SKATING TEACHER [address] [facility] [address] [address] 03/10/2025 11:20 AM EDT Office Visit Pav CC Head, Neck & Respiratory 800 [facility], 2nd [place] [address] Elsa Razo, ICE SKATING TEACHER 800 [place] [address] documented as of this encounter Visit Diagnoses [...] documented as of this encounter Care Teams Floorwalker Relationship Specialty Start Date End Date Zhao Harris MD 1210 [facility] [address] [address] PCP - General 12/03/20 documented as of this encounter
--- OUTSIDE RECORDS SUMMARY | 2025-02-03 08:11 | XMS_ITS | Encounter Summary ---
Author Organization [facility] Address [address] [place] [address] Care Team Providers Care Lieutenant Ballistics Name Role Phone Zhao Harris MD Primary Care Provider [phone] Encounter Details Date Type Department Care Team [...] first t manav in the morning (EYE-HAND I TUBE BENDER) to steady your nerves or to get [...] [facility] st Contact Info) Description 02/10/2025 8:30 AM EDT Clinical Support [facility] Hematology/BMT and Cellular Therapy Program [address] [address] 02/10/2025 9:00 AM EDT Office Visit [facility] Hematology/BMT and Cellular Therapy Program [address] [address] Elaina Boss, PA 800 [facility] [address] [address] 02/10/2025 10:30 AM EDT Appointment [facility] H Infusion 800 [place] [address] 02/11/2025 2:00 PM EDT Appointment [facility] 1 [address] [place] [address] 02/12/2025 2:00 PM EDT Appointment [facility] 1 [address] [place] [address] 02/13/2025 2:00 PM EDT Appointment [facility] 1 [address] [place] [address] 02/14/2025 2:00 PM EDT Appointment [facility] 1 [address] [place] [address] 03/10/2025 8:30 AM EDT Clinical Support [facility] Hematology/BMT and Cellular Therapy Program [address] [address] 03/10/2025 9:00 AM EDT Office Visit [facility] Hematology/BMT and Cellular Therapy Program [address] [address] Isaura Wynn, DOUBLE HEAD MACHINE OPERATOR [address] [facility] [address] [address] 03/10/2025 11:20 AM EDT Office Visit Pav CC Head, Neck & Respiratory 800 [facility], 2nd [place] [address] Elsa Razo, DOUBLE HEAD MACHINE OPERATOR 800 [place] [address] documented as of this encounter [...] documented as of this encounter Care Teams Lieutenant Ballistics Relationship Specialty Start Date End Date Zhao Hraris MD 1210 [facility] [address] [address] PCP - General 12/03/20 documented as of this encounter
--- OUTSIDE RECORDS SUMMARY | 2025-02-03 08:11 | XMS_ITS | Encounter Summary ---
Author Organization [facility] Address [address] [place] [address] Care Team Providers Care Stained Glass Painter Name Role Phone Zhao Harris MD Primary Care Provider [phone] Encounter Details Date Type Department Care Team [...] drink first t manav in the morning (EYE-DIGITAL ASSOCIATE) to steady your nerves or to [...] Health Care Facility st Contact Info) Description 02/10/2025 8:30 AM EDT Clinical Support [facility] Hematology/BMT and Cellular Therapy Program [address] [address] 02/10/2025 9:00 AM EDT Office Visit [facility] Hematology/BMT and Cellular Therapy Program [address] [address] Elaina Boss, PA 800 [facility] [address] [address] 02/10/2025 10:30 AM EDT Appointment [facility] H Infusion 800 [place] [address] 02/11/2025 2:00 PM EDT Appointment [facility] 1 [address] [place] [address] 02/12/2025 2:00 PM EDT Appointment [facility] 1 744 [place] [address] 02/13/2025 2:00 PM EDT Appointment [facility] 1 744 [place] [address] 02/14/2025 2:00 PM EDT Appointment [facility] 1 [address] [place] [address] 03/10/2025 8:30 AM EDT Clinical Support [facility] Hematology/BMT and Cellular Therapy Program [address] [address] 03/10/2025 9:00 AM EDT Office Visit [facility] Hematology/BMT and Cellular Therapy Program [address] [address] Isaura Wynn, MOLD CAR PUSHER [address] [facility] [address] [address] 03/10/2025 11:20 AM EDT Office Visit Pav CC Head, Neck & Respiratory 800 [facility], 2nd [place] [address] Elsa Razo, MOLD CAR PUSHER 800 [place] [address] documented as of this encounter [...] Harris MD 1210 [facility] 36[place] [address] PCP - General 12/03/20 documented as of this encounter
--- OUTSIDE RECORDS SUMMARY | 2025-02-03 08:11 | XMS_ITS | Encounter Summary ---
Author Organization [facility] Address [address] [place] [address] Care Team Providers Care Tariff Inspector Name Role Phone Zhao Harris MD Primary Care Provider [phone] Encounter Details Date Type Department Care Team [...] first t manav in the morning (EYE-MATERIAL HANDLING TECHNICIAN) to steady your nerves or to [...] ([facility] st Contact Info) Description 02/10/2025 8:30 AM EDT Clinical Support [facility] Hematology/BMT and Cellular Therapy Program [address] [address] 02/10/2025 9:00 AM EDT Office Visit [facility] Hematology/BMT and Cellular Therapy Program [address] [address] Elaina Boss, PA 800 [facility] [address] [place] [address] [address] 02/10/2025 10:30 AM EDT Appointment [facility] H Infusion 800 [place] [address] 02/11/2025 2:00 PM EDT Appointment [facility] 1 744 [place] [address] 02/12/2025 2:00 PM EDT Appointment [facility] 1 [address] [place] [address] 02/13/2025 2:00 PM EDT Appointment [facility] 1 [address] [place] [address] 02/14/2025 2:00 PM EDT Appointment [facility] 1 [address] [place] [address] 03/10/2025 8:30 AM EDT Clinical Support [facility] Hematology/BMT and Cellular Therapy Program [address] [address] 03/10/2025 9:00 AM EDT Office Visit [facility] Hematology/BMT and Cellular Therapy Program [address] [address] Isaura Wynn, CORE FILER [address] [facility] [address] [place] [address] [address] 03/10/2025 11:20 AM EDT Office Visit [facility] Head, Neck & Respiratory 800 [facility], 2nd [place] [address] Elsa Razo, CORE FILER 800 [place] [address] documented as of this encounter [...] documented as of this encounter Care Teams Tariff Inspector Relationship Specialty Start Date End Date Zhao Harris MD 1210 [facility] 36[place] [address] PCP - General 12/03/20 documented as of this encounter
--- OUTSIDE RECORDS SUMMARY | 2025-02-03 08:11 | XMS_ITS | Encounter Summary ---
Author Organization [facility] Address [address] [place] [address] Care Team Providers Care Adoption Coordinator Name Role Phone Zhao Harris MD Primary Care Provider [phone] Encounter Details Date Type Department Care Team ([facility] st Contact Info) Description 12/23/2024 Orders Only [facility] CC Hematology/BMT and Cellular Therapy Program [address] [place] [address] [place] [address] Adam Conway RN [facility] H[facility]ATOLOG[facility]IC Myelodysplasia (myelodysplastic [...] drink first t manav in the morning (EYE-TREASURER) to steady your nerves or to get [...] Hematology/BMT and Cellular Therapy Program [address] [address] 02/10/2025 9:00 AM EDT Office Visit [facility] Hematology/BMT and Cellular Therapy Program [address] [address] Elaina Boss PA 800 [facility] [address] [place] [address] 02/10/2025 10:30 AM EDT Appointment [facility] H Infusion 800 [place] [address] 02/11/2025 2:00 PM EDT Appointment [facility] 1 [address] [place] [address] 02/12/2025 2:00 PM EDT Appointment [facility] 1 [address] [place] [address] 02/13/2025 2:00 PM EDT Appointment [facility] 1 [address] [place] [address] 02/14/2025 2:00 PM EDT Appointment [facility] 1 [address] [place] [address] 03/10/2025 8:30 AM EDT Clinical Support [facility] Hematology/BMT and Cellular Therapy Program [address] [phone] 03/10/2025 9:00 AM EDT Office Visit [facility] CC Hematology/BMT and Cellular Therapy Program 750 [facility], [address] [place] [address] Isaura Wynn, PREPARATION SUPERVISOR CANNING [facility] [address]st [place] [address] 03/10/2025 11:20 AM EDT Office Visit Pav CC Head, Neck & Respiratory 800 [facility], 2nd [place] [address] Elsa Razo, PREPARATION SUPERVISOR CANNING 800 [place] [address] Scheduled Orders Name Type Priority [...] documented as of this encounter Care Teams Adoption Coordinator Relationship Specialty Start Date End Date Zhao Harris MD [facility] [address] [address] PCP - General 12/03/20 documented as of this encounter
--- OUTSIDE RECORDS SUMMARY | 2025-02-03 08:11 | XMS_ITS | Encounter Summary ---
Author Organization [facility] Address [address] [place] [address] Care Team Providers Care Skull Chopper Name Role Phone hZao Harris MD Primary Care Provider [phone] Encounter Details Date Type Department Care Team [...] first t manav in the morning (EYE-INVENTORY CONTROL SPECIALIST) to steady your nerves or [...] ([facility] st Contact Info) Description 02/10/2025 8:30 AM EDT Clinical Support P[facility] Hematology/BMT and Cellular Therapy Program [address] [address] 02/10/2025 9:00 AM EDT Office Visit PAV Hematology/BMT and Cellular Therapy Program [address] [address] Elaina Boss, [place] 800 [facility] [address] [address] 02/10/2025 10:30 AM EDT Appointment PAV H Infusion 800 [place] [address] 02/11/2025 2:00 PM EDT Appointment [facility] 1 [address] [place] [address] 02/12/2025 2:00 PM EDT Appointment [facility] 1 [address] [place] [address] 02/13/2025 2:00 PM EDT Appointment [facility] 1 [address] [place] [address] 02/14/2025 2:00 PM EDT Appointment [facility] 1 [address] [place] [address] 03/10/2025 8:30 AM EDT Clinical Support PAV Hematology/BMT and Cellular Therapy Program [address] [address] 03/10/2025 9:00 AM EDT Office Visit P[facility] Hematology/BMT and Cellular Therapy Program [address] [address] Isaura Wynn, ROLLER INSPECTOR [address] [facility] [address] [address] 03/10/2025 11:20 AM EDT Office Visit Pav CC Head, Neck & Respiratory 800 [facility], 2nd [place] [address] Elsa Razo, ROLLER INSPECTOR 800 [place] [address] documented as of this encounter [...] documented as of this encounter Care Teams Skull Chopper Relationship Specialty Start Date End Date Zhao Harris MD 1210 [facility] 36[place] [address] PCP - General 12/03/20 documented as of this encounter
--- OUTSIDE RECORDS SUMMARY | 2025-02-03 08:11 | XMS_ITS | Encounter Summary ---
Author Organization [facility] Address [address] [place] [address] Care Team Providers Care Memorial Designer Name Role Phone Zhao Harris MD Primary Care Provider [phone] Encounter Details Date Type Department Care Team [...] first t manav in the morning (EYE-EXTRUSION PROCESS OPERATOR) to steady your nerves or to [...] Hematology/BMT and Cellular Therapy Program [address] [address] 02/10/2025 9:00 AM EDT Office Visit PAV Hematology/BMT and Cellular Therapy Program [address] [address] Elaina Boss, PA 800 [facility] [address] [address] 02/10/2025 10:30 AM EDT Appointment PAV H Infusion 800 [place] [address] 02/11/2025 2:00 PM EDT Appointment [facility]fusion [facility] 1 [address] [place] [address] 02/12/2025 2:00 PM EDT Appointment [facility] 1 [address] [place] [address] 02/13/2025 2:00 PM EDT Appointment [facility] 1 [address] [place] [address] 02/14/2025 2:00 PM EDT Appointment [facility] 1 [address] [place] [address] 03/10/2025 8:30 AM EDT Clinical Support P[facility] Hematology/BMT and Cellular Therapy Program [address] [address] 03/10/2025 9:00 AM EDT Office Visit PAV Hematology/BMT and Cellular Therapy Program [address] [address] Isaura Wynn, PORCELAIN ENAMEL SPRAYER [address] [facility] [address] [address] 03/10/2025 11:20 AM EDT Office Visit Pav CC Head, Neck & Respiratory 800 [facility], 2nd [place] [address] Elsa Razo, PORCELAIN ENAMEL SPRAYER 800 [place] [address] documented as of this encounter [...] documented as of this encounter Care Teams Memorial Designer Relationship Specialty Start Date End Date Zhao Harris MD 1210 [facility] 36[place] [address] PCP - General 12/03/20 documented as of this encounter
--- OUTSIDE RECORDS SUMMARY | 2025-02-03 08:11 | XMS_ITS ---
Author Organization [facility] Address [address] [place] [address] Care Team Providers Care Assistant Activities Director Name Role Phone Zhao Harris MD Primary Care Provider [phone] Active Problems Problem Noted Date Diagnosed Date [...] Medications Current Day (Day 2 2, Cycle 1 - Planned for 02/03/2025) Next Day (Day 24, Cycle 1 - Planned for 02/05/2025) decitabine (Dacogen)decitabi ne (Dacogen) IVPBvenetoclax (Venclexta) No [...] Kerma 6 mGy 6 mGy 0 mGy CTDIvol 56 mGy 0 mGy 56 mGy Air Kerma Area Product 94.88 Gym 94.88 Gym 0 Gym Radiation (DLP) 196 mGy-cm 0 mGy-cm 196 mGy-cm Resolved Problems Problem Noted Date Diagnosed Date Resolved Date 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
--- OUTSIDE RECORDS SUMMARY | 2025-02-03 08:11 | XMS_ITS | Encounter Summary ---
Author Organization [facility] Address [address] [place] [address] Care Team Providers Care Plaster Applicator Name Role Phone Zhao Harris MD Primary Care Provider [phone] Encounter Details Date Type Department Care Team (Latest Contact Info) Description 02/02/2025 Travel Social History Tobacco Use Types Packs/Day [...] drink first t manav in the morning (EYE-UNDER CUTTER) to steady your nerves or to [...] ([facility] st Contact Info) Description 02/10/2025 8:30 AM EDT Clinical Support P[facility] Hematology/BMT and Cellular Therapy Program [address] [address] 02/10/2025 9:00 AM EDT Office Visit PAV Hematology/BMT and Cellular Therapy Program [address] [address] Elaina Boss, PA 800 [facility] [address] [address] 02/10/2025 10:30 AM EDT Appointment PAV H Infusion 800 [place] [address] 02/11/2025 2:00 PM EDT Appointment [facility] Infusion [facility] 1 [address] [place] [address] 02/12/2025 2:00 PM EDT Appointment [facility] 1 [address] [place] [address] 02/13/2025 2:00 PM EDT Appointment [facility]fusion [facility] 1 [address] [place] [address] 02/14/2025 2:00 PM EDT Appointment [facility]fusion [facility] 1 [address] [place] [address] 03/10/2025 8:30 AM EDT Clinical Support PAV Hematology/BMT and Cellular Therapy Program [address] [address] 03/10/2025 9:00 AM EDT Office Visit PAV Hematology/BMT and Cellular Therapy Program [address] [address] Isaura Wynn, PHYSICIAN NEONATOLOGY [address] [facility] [address] [address] 03/10/2025 11:20 AM EDT Office Visit Pav CC Head, Neck & Respiratory 800 [facility], 2nd [place] [address] Elsa Razo, PHYSICIAN NEONATOLOGY 800 [place] [address] documented as of this encounter Visit Diagnoses [...] as of this encounter Care Teams Plaster Applicator Relationship Specialty Start Date End Date Zhao Harris MD 1210 [facility] 36[place] [address] PCP - General 12/03/20 documented as of this encounter
--- OUTSIDE RECORDS SUMMARY | 2025-02-03 08:12 | XMS_ITS | Encounter Summary ---
Author Organization [employer] ([place], [place], [place], [place]) Address [address] [place] [address] Care Team Providers Care Vacuum Extractor Operator Name Role Phone Unavailable Primary Care Provider Unavailabl e Encounter Details Date Type Department Care Team (Late st Contact Info) Description 07/10/2019 Transcribed Document [facility] Family Medicine [address] [place] [address] ProviderBrigida MD [address] [place] [address] Social History Tobacco Use Types [...] Brigida Vega MD - 07/10/2019 8:16 AM HOSE BUILDER Patient: HUGO AGUILAR JR Age: 63 years Sex: Male : 1955 Associated Diagnoses: None Author: DWAYNE SAHRMA MD-ORT Date of Procedure: Preoperative Diagnosis; Right [...]
--- OUTSIDE RECORDS SUMMARY | 2025-02-03 08:12 | XMS_ITS | Encounter Summary ---
Author Organization [employer] ([place], [place], [place], [place]) Address [address] [place] [address] Care Team Providers Care Supervisor Home Restoration Service Name Role Phone Unavailable Primary Care Provider Unavailabl e Encounter Details Date Type Department Care Team (Late st Contact Info) Description 07/10/2019 Transcribed Document [facility] Family Medicine [address] [place] [address] ProviderBrigida MD [address] [place] [address] Social History Tobacco Use Types [...] Brigida Vega MD - 07/10/2019 9:24 [place] [address] HUGO AGUILAR JR :1955 Visit Time:07/10/2019 What to do next Your Diagnosis Chondromalacia, right knee, Chondromalacia, right knee Instructions From Your Care Team Weight bearing as tolerated, use cane or crutches if needed. Keep dressing clean and dry for at least 2 days. Resume all home medications. Usual diet as tolerated. [place] 10/325mg 1 tablet every 6 hours as needed for pain- next dose due @ 3:30pm today 07/10/19. Follow-Up Appointments Follow Up with SURY SHARMA MD-ORT When 07/21/2019 02:00 PM EST Where: [address] [facility] [address] [place] [address]- Medications What How Much When Instructions Next [...] activities are safe for you. ??? Take cdwt-dqe-iejnajx and prescription medicines only as told by [...] 12/28/2017 Document Revised: 03/07/2018 Document Reviewed: 12/28/2017 [employer]App[employer] Interactive Patient Education ?? 2019 [employer] General Anesthesia, Adult, Care After This [...] activities are safe for you. ??? Take qncm-luw-zjfjgeu and prescription medicines only as told by [...] 10/15/2001 Document Revised: 02/22/2018 Document Reviewed: 02/22/2018 [employer] Interactive Patient Education ?? 2019 [employer] Knee Arthroscopy, Care After Refer to [...] activities are safe for you. ??? Perform ymcsf-tb-tirzeh exercises only as directed by your health [...] 01/26/2006 Document Revised: 12/08/2016 Document Reviewed: 07/05/2015 [employer] Interactive Patient Education ?? 2018 [employer]. acetaminophen and hydrocodone (a SEET a MIN oh fen and laurie droe KOE done) Hycet, Lorcet, [place], Verdrocet, Vicodin, Xodol, Zamicet What is the [...] may report side effects to FDA at 8-564-GGF-4654. What other drugs will affect acetaminophen and [...] affect acetaminophen and hydrocodone, including prescription and ygce-srv-prcmuse medicines, vitamins, and herbal products. Not all [...] to ensure that the information provided by [employer]. ('Mult[employer]') is accurate, up-to-date, and complete, but no guarantee is made to that effect. Drug information contained herein may be time sensitive. [employer] information has been compiled for use by healthcare practitioners and consumers in the [place] and therefore [employer] does not warrant that uses outside of the [place] are appropriate, unless specifically indicated otherwise. [employer] drug information does not endorse drugs, diagnose patients or recommend therapy. [employer] drug information is an informational resource designed [...] effective or appropriate for any given patient. [facility] does not assume any responsibility for any aspect of healthcare administered with the aid of information [employer] provides. The information contained herein is not intended to cover all possible uses, directions, precautions, warnings, drug interactions, allergic reactions, or adverse effects. If you have questions about the drugs you are taking, check with your doctor, nurse or pharmacist. Copyright 3871-6173 VendRx. Version: 15.02. Revision Date: 05/27/2018. Emergency Awareness [...] Assistance with quitting is available by contacting 5-276-WWSL-NOW. This is a free resource providing counseling, [...] was given the opportunity to ask questions. Patient/Lead Press Operator Name: Patient/Lead Press Operator Signature: Relationship to Patient: Clinician/Hospital Lead Press Operator Signature: Date: Electronically signed by Katlin Maldonado Conversion Patient Financial Advocate Eulalio at 11/06/2022 5:54 PM CDT documented in this encounter Plan of Treatment Not on file documented as of this encounter Visit Diagnoses Not on filedocumented in this encounter
--- OUTSIDE RECORDS SUMMARY | 2025-02-03 08:12 | XMS_ITS | Encounter Summary ---
Author Organization [facility] Address [address] [place] [address] Care Team Providers Care Meter Reader Inspector Name Role Phone Zhao Harris MD Primary Care Provider [phone] Encounter Details Date Type Department Care Team [...] first t manav in the morning (EYE-SALES MANAGEMENT TRAINEE) to steady your nerves or to get [...] Hematology/BMT and Cellular Therapy Program [address] [address] 02/10/2025 9:00 AM EDT Office Visit PAV Hematology/BMT and Cellular Therapy Program [address] [address] Elaina Boss, PA 800 [facility] [address] [address] 02/10/2025 10:30 AM EDT Appointment PAV H Infusion 800 [place] [address] 02/11/2025 2:00 PM EDT Appointment [facility] Infusion Clinic 1 [address] [place] [address] 02/12/2025 2:00 PM EDT Appointment [facility] Infusion [facility] 1 [address] [place] [address] 02/13/2025 2:00 PM EDT Appointment [facility] Infusion [facility] 1 [address] [place] [address] 02/14/2025 2:00 PM EDT Appointment [facility] Infusion [facility] 1 [address] [place] [address] 03/10/2025 8:30 AM EDT Clinical Support PAV Hematology/BMT and Cellular Therapy Program [address] [address] 03/10/2025 9:00 AM EDT Office Visit PAV Hematology/BMT and Cellular Therapy Program [address] [address] Isaura Wynn, TYPESETTER PERFORATOR OPERATOR [address] [facility] [address] [address] 03/10/2025 11:20 AM EDT Office Visit Pav CC Head, Neck & Respiratory 800 [facility], 2nd [place] [address] Elsa Razo, TYPESETTER PERFORATOR OPERATOR [address] [place] [address] documented as of this encounter Visit Diagnoses [...] as of this encounter Care Teams Meter Reader Inspector Relationship Specialty Start Date End Date Zhao Harris MD 1210 [facility] 36[place] [address] PCP - General 12/03/20 documented as of this encounter
--- OUTSIDE RECORDS SUMMARY | 2025-02-03 08:12 | XMS_ITS | Encounter Summary ---
Author Organization [facility] Address [address] [place] [address] Care Team Providers Care Candy Department Manager Name Role Phone Zhao Harris MD Primary Care Provider [phone] Encounter Details Date Type Department Care Team [...] first t manav in the morning (EYE-INSIDE TESTER) to steady your nerves or to [...] [facility] Description 02/10/2025 8:30 AM EDT Clinical Support PAV Hematology/BMT and Cellular Therapy Program [address] [address] 02/10/2025 9:00 AM EDT Office Visit PAV Hematology/BMT and Cellular Therapy Program [address] [address] Elaina Boss, PA 800 [facility] [address] [address] 02/10/2025 10:30 AM EDT Appointment PAV H Infusion 800 [place] [address] 02/11/2025 2:00 PM EDT Appointment [facility] Infusion [facility] 1 [address] [place] [address] 02/12/2025 2:00 PM EDT Appointment [facility] Infusion [facility] 1 [address] [place] [address] 02/13/2025 2:00 PM EDT Appointment [facility] Infusion [facility] 1 [address] [place] [address] 02/14/2025 2:00 PM EDT Appointment [facility] Infusion [facility] 1 [address] [place] [address] 03/10/2025 8:30 AM EDT Clinical Support PAV Hematology/BMT and Cellular Therapy Program [address] [address] 03/10/2025 9:00 AM EDT Office Visit PAV Hematology/BMT and Cellular Therapy Program [address] [address] Isaura Wynn, TEAM PRIMARY CARE PHYSICIAN [address] [facility] [address] [address] 03/10/2025 11:20 AM EDT Office Visit Pav CC Head, Neck & Respiratory 800 [facility], 2nd [place] [address] Elsa Razo, TEAM PRIMARY CARE PHYSICIAN [address] [place] [address] documented as of this encounter Visit Diagnoses [...] documented as of this encounter Care Teams Candy Department Manager Relationship Specialty Start Date End Date Zhao Harris MD 1210 [facility] 36[place] [address] PCP - General 12/03/20 documented as of this encounter
--- OUTSIDE RECORDS SUMMARY | 2025-02-03 08:12 | XMS_ITS | Encounter Summary ---
Author Organization [facility] Address [address] [place] [address] Care Team Providers Care Vehicle Body Sander Name Role Phone Zhao Harris MD Primary Care Provider [phone] Encounter Details Date Type Department Care Team ([facility] st Contact Info) Description 01/20/2025 Telephone PAV CC Hematology/BMT and Cellular Therapy Program [address] [address] Elaina Boss, ARAM 800 [facility] [address] [place] [address] Social History Tobacco Use Types Packs/Day Years [...] first t manav in the morning (EYE-VP STRATEGIC PARTNERSHIPS) to steady your nerves or [...] Encounters Date Type Department Care Team ([facility] Contact Info) Description 02/10/2025 8:30 AM EDT Clinical Support PAV Hematology/BMT and Cellular Therapy Program [address] [address] 02/10/2025 9:00 AM EDT Office Visit PAV Hematology/BMT and Cellular Therapy Program [address] [address] Eliana Boss PA 800 [facility] [address] [place] [address] 02/10/2025 10:30 AM EDT Appointment PAV H Infusion 800 [place] [address] 02/11/2025 2:00 PM EDT Appointment [facility] Infusion [facility] 1 [address] [place] [address] 02/12/2025 2:00 PM EDT Appointment [facility] Infusion [facility] 1 [address] [place] [address] 02/13/2025 2:00 PM EDT Appointment [facility] Infusion [facility] 1 [address] [place] [address] 02/14/2025 2:00 PM EDT Appointment [facility] Infusion [facility] 1 [address] [place] [address] 03/10/2025 8:30 AM EDT Clinical Support PAV CC Hematology/BMT and Cellular Therapy Program [address] [place] [address] 03/10/2025 9:00 AM EDT Office Visit PAV Hematology/BMT and Cellular Therapy Program [address] [place] [address] Isaura Wynn, SECTION GANG 800 [facility] [address] [place] [phone] 03/10/2025 11:20 AM EDT Office Visit Pav CC Head, Neck & Respiratory 800 [facility], 2nd [place] [address] Elsa Razo, SECTION GANG 800 [place] [address] documented as of this encounter Visit Diagnoses [...] documented as of this encounter Care Teams Vehicle Body Sander Relationship Specialty Start Date End Date Zhao Harris MD 1210 [facility] [address] [place] [address] PCP - General 12/03/20 documented as of this encounter
--- OUTSIDE RECORDS SUMMARY | 2025-02-03 08:12 | XMS_ITS | Encounter Summary ---
Author Organization [facility] Address [address] 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) Virgen Vargas MD [address] [address] Phone: tel:[phone] fax: [facility] Multidisciplinary Oncology Clinic 800 [place] [address] Phone: tel: fax: Referral ID Status Reason Start Date Expiration Date V isits Requested Visits Authorized [id number] Closed Specialty Services Required 12/11/2024 06/12/2026 1 1 Scheduling Instructions AML, evaluation for clinical trials * Consultation (Routine) - Closed Specialty Diagnoses / Procedures Referred By Justice mcgee Referred To Contact Medical Oncology Diagnoses 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) Virgen Vargas MD [address] [address] Phone: tel: fax: Referral ID Status Reason Start Date Expiration Date V isits Requested Visits Authorized [id number] Closed Specialty Services Required 12/11/2024 06/12/2026 1 1 Scheduling Instructions AML evaluation for clinical trials Encounter Details Date Type Department Care Team ([facility] Contact Info) Description 12/11/2024 Orders Only PAV CC Hematology/BMT and Cellular Therapy Program 750 [facility], [address] [place] [address] Shahla Mejia RN [facility] AMB SERV ADMIN Acute myeloid leukemia not [...] drink first t manav in the morning (EYE-INTEGRITY CONSULTANT) to steady your nerves or to [...] Upcoming Encounters Date Type Department Care Team ([facility] Contact Info) Description 02/10/2025 8:30 AM EDT Clinical Support PAV CC Hematology/BMT and Cellular Therapy Program [address] [address] 02/10/2025 9:00 AM EDT Office Visit PAV Hematology/BMT and Cellular Therapy Program [address] [phone] Elaina Boss, PA 800 [facility] [address] [place] [phone] 02/10/2025 10:30 AM EDT Appointment PAV Infusion [address] [place] [address] 02/11/2025 2:00 PM EDT Appointment [facility] Infusion [facility] 1 [address] [place] [address] 02/12/2025 2:00 PM EDT Appointment [facility] Infusion [facility] 1 [address] [place] [address] 02/13/2025 2:00 PM EDT Appointment [facility] 1 [address] [place] [address] 02/14/2025 2:00 PM EDT Appointment [facility] 1 [address] [place] [address] 03/10/2025 8:30 AM EDT Clinical Support PAV Hematology/BMT and Cellular Therapy Program [address] [address] 03/10/2025 9:00 AM EDT Office Visit PAV Hematology/BMT and Cellular Therapy Program [address] [phone] Isaura Wynn APRN 800 [facility] [address] [place] [phone] 03/10/2025 11:20 AM EDT Office Visit Pav CC Head, Neck & Respiratory 800 [facility], [address] [place] [address] Elsa Razo, VIOLENT CRIMES DETECTIVE [address] [place] [address] Scheduled Referrals Name Type Priority Associated Diagnoses [...] documented as of this encounter Care Teams Curbing Stonecutter Relationship Specialty Start Date End Date Zhao Harris MD [facility] [address] [address] PCP - General 12/03/20 documented as of this encounter
--- OUTSIDE RECORDS SUMMARY | 2025-02-03 08:12 | XMS_ITS | Encounter Summary ---
Author Organization [facility] Address [address] [place] [address] Care Team Providers Care Supervisor Partial Denture Department Name Role Phone Zhao Harris MD Primary Care Provider [phone] Encounter Details Date Type Department Care Team [...] t manav in the morning (EYE-DIRECTOR OF SOLUTIONS ARCHITECTURE) to steady your nerves or to get [...] Hematology/BMT and Cellular Therapy Program [address] [address] 02/10/2025 9:00 AM EDT Office Visit PAV Hematology/BMT and Cellular Therapy Program [address] [address] Elaina Boss, PA 800 [facility] [address] [address] 02/10/2025 10:30 AM EDT Appointment PAV H Infusion 800 [place] [address] 02/11/2025 2:00 PM EDT Appointment [facility]fusion [facility] 1 [address] [place] [address] 02/12/2025 2:00 PM EDT Appointment [facility] 1 [address] [place] [address] 02/13/2025 2:00 PM EDT Appointment [facility] 1 [address] [place] [address] 02/14/2025 2:00 PM EDT Appointment [facility] 1 [address] [place] [address] 03/10/2025 8:30 AM EDT Clinical Support PAV Hematology/BMT and Cellular Therapy Program [address] [address] 03/10/2025 9:00 AM EDT Office Visit PAV Hematology/BMT and Cellular Therapy Program [address] [address] Isaura Wynn, MEDICAL DELIVERY DRIVER [address] [facility] [address] [address] 03/10/2025 11:20 AM EDT Office Visit Pav CC Head, Neck & Respiratory 800 [facility], 2nd [place] [address] Elsa Razo, MEDICAL DELIVERY DRIVER 800 [place] [phone] documented as of this encounter Visit Diagnoses [...] as of this encounter Care Teams Supervisor Partial Denture Department Relationship Specialty Start Date End Date Zhao Harris MD 1210 [facility] 36[place] [address] PCP - General 12/03/20 documented as of this encounter
--- OUTSIDE RECORDS SUMMARY | 2025-02-03 08:12 | XMS_ITS | Encounter Summary ---
Author Organization [facility] Address [address] [place] [address] Care Team Providers Care Rattle Leak And Squeak Repairer Name Role Phone Zhao Harris MD Primary Care Provider [phone] Encounter Details Date Type Department Care Team ([facility] st Contact Info) Description 12/09/2024 Telephone [facility] CC Hematology/BMT and Cellular Therapy Program [address] [place] [address] [place] [address] Essie Ricks RN [facility] HEMATOLOGY PROGRAM CLINIC Social History Tobacco Use [...] first t manav in the morning (EYE-INSTRUMENT TESTER) to steady your nerves or to [...] Hematology/BMT and Cellular Therapy Program [address] [address] 02/10/2025 9:00 AM EDT Office Visit [facility] CC Hematology/BMT and Cellular Therapy Program [address] [address] Elaina Boss, ARAM 800 [facility] [address] [place] [address] 02/10/2025 10:30 AM EDT Appointment PAV H Infusion 800 [place] [address] 02/11/2025 2:00 PM EDT Appointment [facility] 1 744 [place] [address] 02/12/2025 2:00 PM EDT Appointment [facility] 1 [address] [place] [address] 02/13/2025 2:00 PM EDT Appointment [facility] 1 [address] [place] [address] 02/14/2025 2:00 PM EDT Appointment [facility] 1 [address] [place] [address] 03/10/2025 8:30 AM EDT Clinical Support PAV Hematology/BMT and Cellular Therapy Program [address] [place] [address] 03/10/2025 9:00 AM EDT Office Visit PAV Hematology/BMT and Cellular Therapy Program [address] [place] [address] Isaura Wynn, PEOPLESOFT HR DEVELOPER 800 [facility] [address] [place] [phone] 03/10/2025 11:20 AM EDT Office Visit Pav CC Head, Neck & Respiratory 800 [facility], 2nd [place] [address] Elsa Razo, PEOPLESOFT HR DEVELOPER 800 [place] [address] documented as of this encounter Visit Diagnoses [...] documented as of this encounter Care Teams Rattle Leak And Squeak Repairer Relationship Specialty Start Date End Date Zhao Harris MD [facility]0 [facility] [place] [facility] [address], [place] [address] PCP - General 12/03/20 documented as of this encounter
--- OUTSIDE RECORDS SUMMARY | 2025-02-03 08:12 | XMS_ITS | Encounter Summary ---
Author Organization [facility] Address [address] [place] [address] Care Team Providers Care Certified Medical Asst Name Role Phone Zhao Harris MD Primary Care Provider [phone] Encounter Details Date Type Department Care Team ([facility] st Contact Info) Description 01/12/2025 Telephone P[facility] CC Hematology/BMT and Cellular Therapy Program [address] [address] Virgen Vargas MD 800 [facility] 1st [place] [address] Social History Tobacco Use Types Packs/Day Years [...] drink first t manav in the morning (EYE-LOT PORTER) to steady your nerves or to get [...] Wanting tospeak to Dr. Vargas Callback number: [phone] Personal number documented in this encounter Plan of Treatment Upcoming Encounters Date Type Department Care Team ([facility] st Contact Info) Description 02/10/2025 8:30 AM EDT Clinical Support P[facility] CC Hematology/BMT and Cellular Therapy Program [address] [address] 02/10/2025 9:00 AM EDT Office Visit P[facility] CC Hematology/BMT and Cellular Therapy Program [address] [address] Elaina Boss PA 800 [facility] [address] [place] [address] 02/10/2025 10:30 AM EDT Appointment P[facility] H Infusion 800 [place] [address] 02/11/2025 2:00 PM EDT Appointment [facility] 1 744 [place] [address] 02/12/2025 2:00 PM EDT Appointment [facility] 1 744 [place] [address] 02/13/2025 2:00 PM EDT Appointment [facility] 1 744 [place] [address] 02/14/2025 2:00 PM EDT Appointment [facility] 1 744 [place] [address] 03/10/2025 8:30 AM EDT Clinical Support P[facility] CC Hematology/BMT and Cellular Therapy Program [address] [address] 03/10/2025 9:00 AM EDT Office Visit PAV Hematology/BMT and Cellular Therapy Program [address] [place] [address] Isaura Wynn, MARRIAGE THERAPIST 800 [facility] [address] [place] [phone] 03/10/2025 11:20 AM EDT Office Visit Pav CC Head, Neck & Respiratory 800 [facility], 2nd [place] [address] Elsa Razo, MARRIAGE THERAPIST 800 [place] [phone] documented as of this encounter Visit Diagnoses [...] as of this encounter Care Teams Certified Medical Asst Relationship Specialty Start Date End Date Zhao Harris MD [address] [id number] PCP - General 12/03/20 documented as of this encounter
--- OUTSIDE RECORDS SUMMARY | 2025-02-03 08:12 | XMS_ITS | Encounter Summary ---
Author Organization [facility] Address [address] [place] [address] Care Team Providers Care Graffiti Cleaner Name Role Phone Zhao Harris MD Primary Care Provider [phone] Encounter Details Date Type Department Care Team ([facility] st Contact Info) Description 12/12/2024 Orders Only P[facility] CC Hematology/BMT and Cellular Therapy Program [address] [place] [address] [place] [address] Gricel Gonzalez RN [facility] HEMATOLOGY PROGRAM CLINIC Social History [...] Hematology/BMT and Cellular Therapy Program [address] [address] 02/10/2025 9:00 AM EDT Office Visit PAV Hematology/BMT and Cellular Therapy Program [address] [address] Elaina Boss, PA 800 [facility] [address] [place] [phone] 02/10/2025 10:30 AM EDT Appointment P[facility] H Infusion 800 [place] [address] 02/11/2025 2:00 PM EDT Appointment [facility] 1 744 [place] [address] 02/12/2025 2:00 PM EDT Appointment [facility] 1 744 [place] [address] 02/13/2025 2:00 PM EDT Appointment [facility] 1 7[address] [place] [address] 02/14/2025 2:00 PM EDT Appointment [facility] 1 7[address] [place] [address] 03/10/2025 8:30 AM EDT Clinical Support PAV Hematology/BMT and Cellular Therapy Program [address] [address] 03/10/2025 9:00 AM EDT Office Visit P[facility] CC Hematology/BMT and Cellular Therapy Program 750 [facility], [address] [place] [phone] Isaura Wynn, GOLF CLUB WEIGHTER 800 [facility] 1st [place] [address] 03/10/2025 11:20 AM EDT Office Visit Pav CC Head, Neck & Respiratory 800 [facility], 2nd [place] [address] Elsa Razo, GOLF CLUB WEIGHTER 800 [place] [address] documented as of this encounter [...] documented as of this encounter Care Teams Graffiti Cleaner Relationship Specialty Start Date End Date Zhao Harris MD [address] [place] [address] PCP - General 12/03/20 documented as of this encounter
--- OUTSIDE RECORDS SUMMARY | 2025-02-03 08:12 | XMS_ITS | Encounter Summary ---
Author Organization [employer] ([place], [place], [place], [place]) Address [address] [place] [address] Care Team Providers Care Training Technician Name Role Phone Unavailable Primary Care Provider Unavailabl e Encounter Details Date Type Department Care Team (Late st Contact Info) Description 07/10/2019 Transcribed Document [facility] Family Medicine [address] [place] [address] ProviderBrigida MD [address] [place] [address] Social History Tobacco Use [...] - Brigida ProviderMD - 07/10/2019 7:57 AM LOSS CONTROL ENGINEER [facility] Main OR PostOp Summary Primary Physician: SURY SHARMA MD-ORT Finalized Date/Time: 07/10/19 10:03:33 Pt. Name: HUGO AGUILAR JR, D.O.B./Sex: 1955 Male Med Rec #: [id number] Physician: SURY SHARMA MD-ORT Financial #: [id number] Pt. Type: O Room/Bed: Admit/Disch: 07/10/19 05:55:00 - Institution: [facility] Main OR PostOp Case Times Entry 1 In PACU II 07/10/19 09:10:00 Ready for PACU II 07/10/19 10:00:00 Discharge Discharge from PACU 07/10/19 10:00:00 II Last Modified By: Laquita Romero RN 07/10/19 10:03:30 [facility] Main OR PostOp Case Times Audit 07/10/19 10:03:30 Green Building Design Specialist: [id number] Modifier: [id number] <+> 1 Ready for PACU II Discharge <+> 1 Discharge from PACU II Finalized By: Laquita Romero RN Document Signatures Signed By: Laquita Romero RN 07/10/19 10:03 documented in this encounter Plan of Treatment Not on file documented as of this encounter Visit Diagnoses Not on filedocumented in this encounter
--- OUTSIDE RECORDS SUMMARY | 2025-02-03 08:12 | XMS_ITS | Encounter Summary ---
Author Organization [employer] ([place], [place], [place], [place]) Address [address] [place] [address] Care Team Providers Care Physician'S Assistant Name Role Phone Unavailable Primary Care Provider Unavailabl e Encounter Details Date Type Department Care Team (Late st Contact Info) Description 07/10/2019 Transcribed Document [facility] [place] [address] [place] [address] ProviderBrigida MD [address] [place] [address] Social History Tobacco Use Types [...] - Brigida ProviderMD - 07/10/2019 7:57 AM CERTIFIED REGISTERED [facility] [place] [facility] OR PACU Summary Primary Physician: SURY SHARMA MD-ORT Finalized Date/Time: 07/10/19 09:18:01 Pt. Name: HUGO AGUILAR JR, D.O.B./Sex: 1955 Male Med Rec #: [id number] Physician: SURY SHARMA MD-ORT Financial #: [id number] Pt. Type: O Room/Bed: Admit/Disch: 07/10/19 05:55:00 - Institution: [facility] PACU Case Times Entry 1 In PACU I 07/10/19 08:26:00 Ready for PACU 07/10/19 09:00:00 Discharge Discharge from PACU 07/10/19 09:00:00 I Last Modified By: Mariah Guerra RN 07/10/19 09:17:59 [facility] Main OR PACU Case Times Audit 07/10/19 09:17:59 Drawing In Machine Tender: TERESA Modifier: CARRIEC 1 <*> Ready for PACU Discharge 07/10/19 08:56:00 1 <*> Discharge from PACU I 07/10/19 08:56:00 07/10/19 08:49:40 Drawing In Machine Tender: TERESA Modifier: CARRIEC <+> 1 Discharge from PACU I Finalized By: Mariah Guerra RN Document Signatures Signed By: Mariah Guerra RN 07/10/19 09:18 Electronically signed by Joel [facility] Conversion Fat Pressroom Worker Cerner at 11/06/2022 6:04 PM CDT documented in this encounter Plan of Treatment Not on file documented as of this encounter Visit Diagnoses Not on filedocumented in this encounter
--- OUTSIDE RECORDS SUMMARY | 2025-02-03 08:12 | XMS_ITS | Encounter Summary ---
Author Organization [facility] Address [address] [place] [address] Care Team Providers Care Network Systems Administrator Name Role Phone Zhao Harris MD Primary Care Provider [phone] Encounter Details Date Type Department Care Team [...] first t manav in the morning (EYE-TELEGRAPH DISPATCHER) to steady your nerves or to get [...] ([facility] st Contact Info) Description 02/10/2025 8:30 AM EDT Clinical Support PAV Hematology/BMT and Cellular Therapy Program [address] [address] 02/10/2025 9:00 AM EDT Office Visit PAV Hematology/BMT and Cellular Therapy Program [address] [address] Elaina Boss, PA 800 [facility] Cancer [address] [address] 02/10/2025 10:30 AM EDT Appointment PAV H Infusion 800 [place] [address] 02/11/2025 2:00 PM EDT Appointment [facility] Infusion Clinic 1 [address]44 [place] [address] 02/12/2025 2:00 PM EDT Appointment [facility] Infusion [facility] 1 744 [place] [address] 02/13/2025 2:00 PM EDT Appointment [facility] Infusion [facility] 1 [address] [place] [address] 02/14/2025 2:00 PM EDT Appointment [facility] Infusion [facility] 1 [address] [place] [address] 03/10/2025 8:30 AM EDT Clinical Support PAV Hematology/BMT and Cellular Therapy Program [address] [address] 03/10/2025 9:00 AM EDT Office Visit PAV Hematology/BMT and Cellular Therapy Program [address] [address] Isaura Wynn, PARTY PLAN SALES UNIT SALES LEADER [address] [facility] [address] [address] 03/10/2025 11:20 AM EDT Office Visit Pav CC Head, Neck & Respiratory 800 [facility], 2nd [place] [address] Elsa Razo, PARTY PLAN SALES UNIT SALES LEADER 800 [place] [address] documented as of this encounter Visit Diagnoses [...] documented as of this encounter Care Teams Network Systems Administrator Relationship Specialty Start Date End Date Zhao Harris MD 1210 [facility] [address], [place] [address] PCP - General 12/03/20 documented as of this encounter
--- OUTSIDE RECORDS SUMMARY | 2025-02-03 08:12 | XMS_ITS | Encounter Summary ---
Author Organization [employer] ([place], [place], [place], [place]) Address [address] [place] [address] Care Team Providers Care Lean Manufacturing Leader Name Role Phone Unavailable Primary Care Provider Unavailabl e Encounter Details Date Type Department Care Team (Late st Contact Info) Description 07/10/2019 Transcribed Document [facility] [place] [address] [place] [address] ProviderBrigida MD [address] [place] [address] Social History Tobacco Use Types [...] Brigida Vega MD - 07/10/2019 9:18 AM KICKING MACHINE OPERATOR Patient Education Materials Follows: Local Anesthesia, Care [...] activities are safe for you. ??? Take qmmj-boe-khcgiej and prescription medicines only as told by [...] 12/28/2017 Document Revised: 03/07/2018 Document Reviewed: 12/28/2017 [employer] Patient Education ? 2019 [employer] General Anesthesia, Adult, Care After This [...] activities are safe for you. ??? Take qeuk-zxf-zxaoiqw and prescription medicines only as told by [...] 10/15/2001 Document Revised: 02/22/2018 Document Reviewed: 02/22/2018 [employer] Patient Education ? 2019 [employer] Knee Arthroscopy, Care After Refer to [...] activities are safe for you. ??? Perform pybcj-hd-zkgqge exercises only as directed by your health [...] 01/26/2006 Document Revised: 12/08/2016 Document Reviewed: 07/05/2015 [employer] Interactive Patient Education ? 2018 [employer] documented in this encounter Plan of Treatment Not on file documented as of this encounter Visit Diagnoses Not on filedocumented in this encounter
--- OUTSIDE RECORDS SUMMARY | 2025-02-03 08:12 | XMS_ITS | Encounter Summary ---
Author Organization [facility] Address [address] [place] [address] Care Team Providers Care Show Host Name Role Phone Zhao Harris MD Primary Care Provider [phone] Encounter Details Date Type Department Care Team [...] first t manav in the morning (EYE-MEDICAL RECORD TECHNICIAN) to steady your nerves or to [...] ([facility] st Contact Info) Description 02/10/2025 8:30 AM EDT Clinical Support PAV Hematology/BMT and Cellular Therapy Program [address] [address] 02/10/2025 9:00 AM EDT Office Visit PAV Hematology/BMT and Cellular Therapy Program [address] [address] Elaina Boss, PA 800 [facility] [address] [address] 02/10/2025 10:30 AM EDT Appointment PAV H Infusion 800 [place] [address] 02/11/2025 2:00 PM EDT Appointment [facility] Infusion Clinic 1 [address] [place] [address] 02/12/2025 2:00 PM EDT Appointment [facility] Infusion [facility] 1 [address] [place] [address] 02/13/2025 2:00 PM EDT Appointment [facility] Infusion [facility] 1 [address] [place] [address] 02/14/2025 2:00 PM EDT Appointment [facility] Infusion [facility] 1 [address] [place] [address] 03/10/2025 8:30 AM EDT Clinical Support PAV Hematology/BMT and Cellular Therapy Program [address] [address] 03/10/2025 9:00 AM EDT Office Visit PAV Hematology/BMT and Cellular Therapy Program [address] [address] Isaura Wynn, DIGITAL MARKETING CONSULTANT [address] [facility] [address] [address] 03/10/2025 11:20 AM EDT Office Visit Pav CC Head, Neck & Respiratory 800 [facility], 2nd [place] [address] Elsa Razo, DIGITAL MARKETING CONSULTANT 800 [place] [address] documented as of this encounter Visit Diagnoses [...] documented as of this encounter Care Teams Show Host Relationship Specialty Start Date End Date Zhao Harris MD 1210 [facility] [address] [address] PCP - General 12/03/20 documented as of this encounter
--- OUTSIDE RECORDS SUMMARY | 2025-02-03 08:12 | XMS_ITS | Encounter Summary ---
Author Organization [facility] Address [address] [place] [address] Care Team Providers Care Fire Extinguisher Installer Name Role Phone Zhao Harris MD Primary Care Provider [phone] Encounter Details Date Type Department Care Team ([facility] st Contact Info) Description 12/16/2024 Orders Only PAV CC Hematology/BMT and Cellular Therapy Program [address] [address] Christina Ramos MD 800 [facility] 1st [place] [address] Myelodysplasia (myelodysplastic syndrome) (CMS/HCC) (Primary Dx) Social [...] drink first t manav in the morning (EYE-CARE ADMINISTRATIVE TECH) to steady your nerves or to [...] ([facility] st Contact Info) Description 02/10/2025 8:30 AM EDT Clinical Support PAV Hematology/BMT and Cellular Therapy Program [address] [address] 02/10/2025 9:00 AM EDT Office Visit PAV Hematology/BMT and Cellular Therapy Program [address] [address] Elaina Boss, PA 800 [facility] [address] [place] [address] 02/10/2025 10:30 AM EDT Appointment PAV H Infusion 800 [place] [address] 02/11/2025 2:00 PM EDT Appointment [facility] Infusion [facility] 1 [address] [place] [address] 02/12/2025 2:00 PM EDT Appointment [facility] Infusion [facility] 1 [address] [place] [address] 02/13/2025 2:00 PM EDT Appointment [facility] Infusion [facility] 1 [address] [place] [address] 02/14/2025 2:00 PM EDT Appointment [facility] Infusion [facility] 1 [address] [place] [address] 03/10/2025 8:30 AM EDT Clinical Support PAV CC Hematology/BMT and Cellular Therapy Program 750 [facility] [place] [address] 03/10/2025 9:00 AM EDT Office Visit PAV CC Hematology/BMT and Cellular Therapy Program 750 [facility], [address] [place] [address] Isaura Wynn, STABBER 800 [facility] [address]st [place] [address] 03/10/2025 11:20 AM EDT Office Visit Pav CC Head, Neck & Respiratory 800 [facility], 2nd [place] [address] Elsa Razo, STABBER 800 [place] [address] documented as of this encounter Results * (ABNORMAL) Comprehensive metabolic panel (01/06/2025 8:49 AM EDT) [facility] Glucose, Plasma 100(H) 74 - 99 [...] t [facility] [address] [place] [address] * (ABNORMAL) CBC and differential (01/06/2025 8:49 [...] t [facility] [address] [place] [address] * (ABNORMAL) CBC and differential (12/20/2024 9:00 [...] Resul t [facility] [address] [place] [address] * (ABNORMAL) CBC and differential (12/18/2024 9:14 AM EDT) WBC Count 0.51(LL) 3.70 - 10.30 10*3/uL LAB HEMATOLOGY METHOD 12/18/2024 10:49 AM EDT [facility] RBC Count 2.50(L) 4.60 - 6.10 10*6/uL LAB HEMATOLOGY METHOD 12/18/2024 10:49 AM EDT [facility] HGB 8.1(L) 13.7 - 17.5 g/dL LAB HEMATOLOGY METHOD 12/18/2024 10:49 AM EDT [facility] HCT 21.9(L) 40.0 - 51.0 % LAB HEMATOLOGY METHOD 12/18/2024 10:49 AM EDT [facility] Platelet Count 6(LL) 155 - 369 10*3/uL LAB HEMATOLOGY METHOD 12/18/2024 10:49 AM EDT [facility] MCV 88 79 - 98 fL LAB HEMATOLOGY METHOD 12/18/2024 10:49 AM EDT [facility] MCH 32.4(H) 26.0 - 32.0 pg LAB HEMATOLOGY METHOD 12/18/2024 10:49 AM EDT [facility] MCHC 37.0(H) 30.7 - 35.5 g/dL LAB HEMATOLOGY METHOD 12/18/2024 10:49 AM EDT [facility] RDW 16.7(H) 11.5 - 14.5 % LAB HEMATOLOGY METHOD 12/18/2024 10:49 AM EDT [facility] MPV LAB HEMATOLOGY METHOD 12/18/2024 10:49 AM EDT [facility] Comment:Not Measured nRBC 0.0 <=0.0 per 100 WBCs LAB HEMATOLOGY METHOD 12/18/2024 10:49 AM EDT [facility] Differential Type Automated LAB HEMATOLOGY METHOD 12/18/2024 10:49 AM EDT [facility] Neutrophils % 6 % LAB HEMATOLOGY METHOD 12/18/2024 10:49 AM EDT [facility] Lymphocytes % 90 % LAB HEMATOLOGY METHOD 12/18/2024 10:49 AM EDT [facility] Monocytes % 4 % LAB HEMATOLOGY METHOD 12/18/2024 10:49 AM EDT [facility] Eosinophils % 0 % LAB HEMATOLOGY METHOD 12/18/2024 10:49 AM EDT [facility] Basophils % 0 % LAB HEMATOLOGY METHOD 12/18/2024 10:49 AM EDT [facility] Immature Granulocytes % 0 % LAB HEMATOLOGY METHOD 12/18/2024 10:49 AM EDT [facility] Neutrophils Absolute 0.03(LL) 1.60 - 6.10 10*3/uL LAB HEMATOLOGY METHOD 12/18/2024 10:49 AM EDT [facility] Lymphocytes Absolute 0.46(L) 1.20 - 3.90 10*3/uL LAB HEMATOLOGY METHOD 12/18/2024 10:49 AM EDT [facility] Monocytes Absolute 0.02(L) 0.30 - 0.90 10*3/uL LAB HEMATOLOGY METHOD 12/18/2024 10:49 AM EDT [facility] Eosinophils Absolute 0.00 0.00 - 0.50 10*3/uL LAB HEMATOLOGY METHOD 12/18/2024 10:49 AM EDT [facility] Basophils Absolute 0.00 0.00 - 0.10 10*3/uL LAB HEMATOLOGY METHOD 12/18/2024 10:49 AM EDT [facility] Immature Granulocytes Absolute 0.00 0.00 - 0.06 10*3/uL LAB HEMATOLOGY METHOD 12/18/2024 10:49 AM EDT [facility] Blood Blood sample taken from central line / Unknown Venipuncture / Unknown 12/18/2024 9:14 AM EDT 12/18/2024 9:20 AM EDT Narrative [facility] - 12/18/2024 10:49 AM EDT Therapeutic decision making should be based on absolute values, rather than percentages. us Christina Ramos MD LAB BLOOD ORDERABLES Final Resul t Performing Organization Address City/State/[facility] Co de Phone Number [facility] [address] [place] [address] documented in this encounter Visit Diagnoses Diagnosis [...] as of this encounter Care Teams Fire Extinguisher Installer Relationship Specialty Start Date End Date Zhao Harris MD [address] [place] [address] PCP - General 12/03/20 documented as of this encounter
--- OUTSIDE RECORDS SUMMARY | 2025-02-03 08:12 | XMS_ITS | Encounter Summary ---
Author Organization [employer] ([place], [place], [place], [place]) Address [address] [place] [address] Care Team Providers Care Beamster Name Role Phone Unavailable Primary Care Provider Unavailabl e Encounter Details Date Type Department Care Team (Late st Contact Info) Description 07/10/2019 Transcribed Document [facility] [place] [address] [place] [address] ProviderBrigida MD [address] [place] [address] Social History Tobacco Use Types [...] - Historical ProviderMD - 07/10/2019 7:17 AM SHIPPING CLERK CRATING Pre Procedure Adult Entered On: 07/10/2019 7:21 EST Performed On: 07/10/2019 7:17 EST by RONNY BLISS RN Height and Weight, Clinical Dosing Height Source : Stated Height Entry Format : [place] Height, Feet : 5 ft(Converted to: 152 cm, 60 Inch) Height, Inches : 7 Inch(Converted to: 0 ft 7 Inch, 17.78 cm) Clinical Height : 170.18 cm Weight Source : Standing scale Weight Entry Format : [place] Clinical Dosing Weight : 86.36 kg Weight, Pounds : 190 lb Body Surface Area (BSA) : 1.98 m2 Body Mass Index : 29.8 kg/m2 (HI) [place] Body Weight : 65 kg RONNY BLISS [...] Days : No Contact With Traveler to [facility] Region : No Tuberculosis Symptoms : None [...] RONNY BLISS RN - 07/10/2019 7:17 EST [place] Suicide Severity Rating Scale (C-SSRS) CSSRS Past [...] Arrival on Unit : Ambulatory Support Person/Patient Armoured Car Escort : Yes Support Person/Pt Rep Name : Faviola Support Person/Pt Rep Contact Information : [phone] Want Family/Rep/Phys Notified of Admit : No Emergency Contact #1 : Faviola Brown Emergency Contact #1 Emergency Contact #1 Relationship : Emergency Contact #2 : . Emergency Contact #2 Phone Number : . Emergency Contact #2 Relationship : . Information Obtained From : Patient Primary Language : Bermudian Preferred Communication Mode : Verbal Communication Barrier [...] Scale Risk Level : 25-45 Medium Risk Garner Fall Interventions : Adequate lighting, Bed in [...]
--- OUTSIDE RECORDS SUMMARY | 2025-02-03 08:12 | XMS_ITS | Encounter Summary ---
Author Organization [employer] ([place], [place], [place], [place]) Address [address] [place] [address] Care Team Providers Care Cutter Grinder Operator Name Role Phone Unavailable Primary Care Provider Unavailabl e Encounter Details Date Type Department Care Team (Late st Contact Info) Description 07/10/2019 Transcribed Document [facility] [place] [address] [place] [address] ProviderBrigida MD [address] [place] [address] Social History Tobacco Use Types [...] Brigida Vega MD - 07/10/2019 9:20 AM OPEN [place] [address] HUGO AGUILAR JR :1955 Visit Time:07/10/2019 What to do next Your Diagnosis Chondromalacia, right knee, Chondromalacia, right knee Instructions From Your Care Team Weight bearing as tolerated, use cane or crutches if needed. Keep dressing clean and dry for at least 2 days. Resume all home medications. Usual diet as tolerated. Laona 10/325mg 1 tablet every 6 hours as needed for pain- next dose due @ 3:30pm today 07/10/19. Follow-Up Appointments Follow Up with SURY SHARMA MD-ORT When 07/21/2019 02:00 PM EST Where: [address] [facility] [place] [address] [place] [address]- Medications What How Much When Instructions Next [...] activities are safe for you. ??? Take quhz-lzx-edqefqt and prescription medicines only as told by [...] 12/28/2017 Document Revised: 03/07/2018 Document Reviewed: 12/28/2017 [employer] Interactive Patient Education ?? 2019 [employer] General Anesthesia, Adult, Care After This [...] activities are safe for you. ??? Take tutu-ouo-vgubdau and prescription medicines only as told by [...] 10/15/2001 Document Revised: 02/22/2018 Document Reviewed: 02/22/2018 [employer] Patient Education ?? 2019 [employer] Knee Arthroscopy, Care After Refer to [...] activities are safe for you. ??? Perform rhzhs-dp-swnadp exercises only as directed by your health [...] 01/26/2006 Document Revised: 12/08/2016 Document Reviewed: 07/05/2015 [employer] Interactive Patient Education ?? 2018 [employer] acetaminophen and hydrocodone (a SEET a MIN oh fen and laurie droe KOE done) Hycet, Lorcet, Laona, Verdrocet, Vicodin, Xodol, Zamicet What is the [...] may report side effects to FDA at 0-124-IVE-2849. What other drugs will affect acetaminophen and [...] affect acetaminophen and hydrocodone, including prescription and bzgd-pyt-wsuwmhx medicines, vitamins, and herbal products. Not all [...] to ensure that the information provided by [employer]. ('[employer]') is accurate, up-to-date, and complete, but no guarantee is made to that effect. Drug information contained herein may be time sensitive. [employer] information has been compiled for use by healthcare practitioners and consumers in the [place] and therefore [employer] does not warrant that uses outside of the [place] are appropriate, unless specifically indicated otherwise. [employer] drug information does not endorse drugs, diagnose patients or recommend therapy. [employer] drug information is an informational resource [...] effective or appropriate for any given patient. [facility] does not assume any responsibility for any aspect of healthcare administered with the aid of information [facility] provides. The information contained herein is not intended to cover all possible uses, directions, precautions, warnings, drug interactions, allergic reactions, or adverse effects. If you have questions about the drugs you are taking, check with your doctor, nurse or pharmacist. Copyright 9716-3795 [employer]. Version: 15.02. Revision Date: 05/27/2018. Emergency Awareness [...] Assistance with quitting is available by contacting 6-337-RLVQ-NOW. This is a free resource providing counseling, [...] was given the opportunity to ask questions. Patient/Finisher Fine Diamond Dies Name: Patient/Finisher Fine Diamond Dies Signature: Relationship to Patient: Clinician/Hospital Finisher Fine Diamond Dies Signature: Date: documented in this encounter Plan of Treatment Not on file documented as of this encounter Visit Diagnoses Not on filedocumented in this encounter"
--- OUTSIDE RECORDS SUMMARY | 2025-02-03 08:13 | XMS_ITS | Encounter Summary ---
Author Organization [employer] ([place], [place], [place], [place]) Address [address] [place] [address] Care Team Providers Care Cabinet Finisher Name Role Phone Unavailable Primary Care Provider Unavailabl e Encounter Details Date Type Department Care Team (Late st Contact Info) Description 07/10/2019 Transcribed Document [facility] [place] [address] [place] [address] ProviderBrigida MD [address] [place] [address] Social History Tobacco Use Types [...] - Brigida ProviderMD - 07/10/2019 7:57 AM DISTRICT GAUGER [facility] [place] IntraOp Summary Primary Physician: SURY SHARMA MD-ORT Finalized Date/Time: 07/10/19 08:31:14 Pt. Name: HUGO AGUILAR JR, D.O.B./Sex: 1955 Male Med Rec #: [id number] Physician: SURY SHARMA MD-ORT Financial #: [id number] Pt. Type: O Room/Bed: Admit/Disch: 07/10/19 05:55:00 - Institution: [facility] [place] IntraOp Case Attendance Entry 1 Entry 2 Entry 3 Case Attendee SURY SHARMA, TRAVIS PUTNAM, ESTRELLA, Kenrick Guadalupe, DISTRICT GAUGER/SOLUTIONS DEVELOPER MEAGANORGenia CUSTOMS INVESTIGATOR-ANS Role Performed Surgeon/Proceduralist, CUSTOMS INVESTIGATOR/Nurse Sales Representative Facility Services Clutch Inspector, First First Time In 07/10/19 07:38:00 07/10/19 07:38:00 07/10/19 07:38:00 Time Out 07/10/19 08:26:00 07/10/19 08:26:00 07/10/19 08:26:00 Procedure Knee Arthroscopy Knee Arthroscopy Knee Arthroscopy Other Attendee Superficial Wound Closed By: Last Modified By: Martha Goldberg RN Dobson, Melissa, RN Dobson, Melissa, RN 07/10/19 08:31:02 07/10/19 08:31:02 07/10/19 08:31:02 Entry 4 Entry 5 Case Attendee WILMER HECTOR Melissa, RN Role Performed Scrub, First Wind Energy Mechanic, First Time In 07/10/19 07:38:00 07/10/19 07:38:00 Time Out 07/10/19 08:26:00 07/10/19 08:26:00 Procedure Knee Arthroscopy Knee Arthroscopy Other Attendee Superficial Wound Closed By: Last Modified By: Martha Goldberg RN Dobson, Melissa, RN 07/10/19 08:31:02 07/10/19 08:31:02 [facility] IntraOp Case Attendance Audit 07/10/19 08:31:02 Senior Devops Engineer: [id number] Modifier: [id number] <+> Time Out 1 <*> Procedure Knee Arthroscopy 2 <+> Time Out 2 <*> Procedure Knee Arthroscopy 3 <+> Time Out 3 <*> Procedure Knee Arthroscopy 4 <+> Time Out 4 <*> Procedure Knee Arthroscopy 5 <+> Time Out 5 <*> Procedure Knee Arthroscopy 07/10/19 08:12:16 Senior Devops Engineer: [id number] Modifier: [id number] <+> 1 Time In <+> 1 Procedure [...] [facility] IntraOp Case Times Audit 07/10/19 08:30:17 Senior Devops Engineer: [id number] Modifier: [id number] <+> 1 Out Room Time <+> 1 [...] [facility] IntraOp Counts Final Audit 07/10/19 08:29:56 Senior Devops Engineer: [id number] Modifier: [id number] 1 <*> Procedure Knee Arthroscopy [facility] IntraOp Delays Entry 1 Delay Reason Other Duration 8 Minute(s) Last Modified By: Martha Goldberg RN 07/10/19 08:06:57 [facility] IntraOp Departure from OR Entry 1 Integumentary Assessment Integumentary WDL Assessment WDL Transfer/Handoff Transfer to PACU Phase I Handoff Method Bedside/Face to face Post-op Transport Stretcher/Gurney Via Patient Transport Martha Goldberg RN, Accompanied by TRAVIS PUTNAM, MICROFICHE DUPLICATOR, CUSTOMS INVESTIGATOR-ANS Last Modified By: Martha Goldberg RN 07/10/19 08:06:58 [facility] IntraOp Dressing and Packing Entry 1 Type Dressing Location RIGHT KNEE Wound Dressing Item 4x4's, Joseph, Kerlix/Maninder Applied By Kenrick Guadalupe, DISTRICT GAUGER/SOLUTIONS DEVELOPER Last Modified By: Martha Goldberg RN 07/10/19 [...] RN 07/10/19 08:07:26 [facility] IntraOp General Case Evaporator 1 Case Information OR OR 05 [facility] Case Level 1 Room Verified Yes Wound Class I - Clean Specialty SN Orthopedic Anesthesia Type General ASA Class 3 Diagnosis Preop Diagnosis RIGHT KNEE PAIN Postop Same As Preop Yes Postop Diagnosis RIGHT KNEE PAIN Last Modified By: Martha Goldberg RN 07/10/19 08:16:03 [facility] IntraOp General Case Data Audit 07/10/19 08:16:03 Senior Devops Engineer: [id number] Modifier: [id number] <+> 1 ASA Class <+> 1 Anesthesia [...] [facility] IntraOp Intraoperative Equipment Audit 07/10/19 08:15:09 Senior Devops Engineer: [id number] Modifier: [id number] 1 <*> Photo Yes 1 <*> Video [...] 20ml vial Marcaine 0.5% 30ml vial - [id number] - [id number] Combo Med List Time Administered 07/10/19 07:57:00 07/10/19 07:57:00 Route of LOCAL LOCAL Administration Dose Dose 25 20 Unit of Measure ml ml Volume Administered By Kenrick Guadalupe, DISTRICT GAUGER/SOLUTIONS DEVELOPER Kenrick Guadalupe CST/FREDY Procedure Irrigation Irrigant Volume [...] Positioned By Martha Goldberg RN, TRAVIS PUTNAM, MICROFICHE DUPLICATOR, CUSTOMS INVESTIGATOR-ANS Position Verified Positioning Yes Verified by Anesthesia [...] Intra Op Sign Out Audit 07/10/19 08:30:31 Senior Devops Engineer: [id number] Modifier: [id number] <+> 1 RN Sign Out Signature Date/Time [...] Class I - Clean Last Modified By: Marhta Goldberg RN 07/10/19 08:30:36 [facility] IntraOp Surgical Procedures Audit 07/10/19 08:30:36 Senior Devops Engineer: [id number] Modifier: [id number] <+> 1 Stop 07/10/19 08:16:57 Senior Devops Engineer: [id number] Modifier: [id number] 1 <*> Procedure Knee Arthroscopy [facility] IntraOp Temp Regulation Devices Entry 1 Temp Regulation Temperature Warm blankets Regulation Device Temperature Upper body Regulation Site Temperature TRAVIS PUTNAM APRN, Regulation Device CUSTOMS INVESTIGATOR-ANS Applied by Last Modified By: Martha Goldberg [...] [facility] IntraOp Time Out Audit 07/10/19 08:31:00 Senior Devops Engineer: [id number] Modifier: [id number] 1 <*> Beta Jaime Administered N/A 1 <*> Procedure to be Performed Knee Arthroscopy Case Comments <None> Finalized By: Martha Goldberg RN Document Signatures Signed By: Martha Goldberg RN 07/10/19 08:31 Electronically signed by [facility] Conversion Farm Rancher Cerner at 11/06/2022 5:47 PM CDT documented in this encounter Plan of Treatment Not on file documented as of this encounter Visit Diagnoses Not on filedocumented in this encounter
--- OUTSIDE RECORDS SUMMARY | 2025-02-03 08:13 | XMS_ITS | Encounter Summary ---
Author Organization [employer] ([place], [place], [place], [place]) Address [address] [place] [address] Care Team Providers Care Statistician Applied Name Role Phone Unavailable Primary Care Provider Unavailabl e Encounter Details Date Type Department Care Team (Late st Contact Info) Description 07/10/2019 Transcribed Document [facility] [place] [address] [place] [address] ProviderBrigida MD [address] [place] [address] Social History Tobacco Use Types [...] Brigida Vega MD - 07/10/2019 7:04 AM CREATIVE SERVICES SPECIALIST Patient: HUGO AGUILAR JR Age: 63 years Sex: Male : 1955 Associated Diagnoses: None Author: DWAYNE SHARMA MD-ORT HISTORY AND PHYSICAL DATE: Patient: Hugo Aguilar Date of : 1955 Patient Number: [id number] History of Present Illness Hugo is here [...]
--- OUTSIDE RECORDS SUMMARY | 2025-02-03 08:13 | XMS_ITS | Clinical Summary ---
Author Organization [facility] Address [address] [place] [address] Care Team Providers Care Complaint Inspector Name Role Phone Zhao Harris MD Primary Care Provider + [phone] Allergies Active Allergy Reactions Criticality Noted Date Comments Furosemide Rash Low 01/07/2025 Not sure if allergy Medications nitroglycerin (Nitrostat) 0.4 MG SL tabletIndicatio ns:Coronary artery disease involving [place] heart with angina pectoris, unspecified vessel or lesion type (CMS/HCC) Place 1 tablet (0.4 mg) under the tongue every 5 (five) minutes as needed for chest pain. 10 tablet 11 5 Active Additional Information Patient not taking.Reported on 01/13/2025 bisoprolol (Zebeta) 5 MG tabletIndicatio ns:Coronary artery disease involving [place] heart with angina pectoris, unspecified vessel or [...] 30 tablet 3 5 Active HYDROcodone-shalom taminophen (Deweese) 5-325 MG tablet Take 1 tablet by mouth every 6 hours as needed. 5 Active hydrocortisone 2.5 % cream Apply 1 Application topically as needed for rash. 20 g 5 Active lidocaine-prilo jalesea (Emla) 2.5-2.5 % cream Apply 1 inch [...] Encounters Date Type Department Care Team Description 02/02/2025 7:43 AM EDT - 02/02/2025 11:59 PM EDT Hospital Encounter [facility] Interventional Radiology [address] [place] [address] Debra Vega RN Myelodysplasia (myelodysplastic syndrome) ([facility]) Discharge Disposition: Home or Self Care 02/02/2025 Travel 01/27/2025 Telephone [facility] Interventional Radiology [address] [place] [phone] Bandar Cleary RN 01/22/2025 Telephone [facility] Hematology/BMT and Cellular Therapy Program [address] [facility], [address] [place] [address] Virgen Vargas MD 01/20/2025 Telephone [facility] Hematology/BMT and Cellular Therapy Program [address] [facility], [address] [place] [address] Elaina Boss PA 01/17/2025 7:45 AM EDT - 01/17/2025 11:59 PM EDT Hospital Encounter [facility] Infusion [address] [place] [address] Myelodysplasia (myelodysplastic syndrome) (CMS/HCC) (Primary Dx); Thrombocytopenia (CMS/HCC) Discharge Disposition: Home or Self Care 01/17/2025 Travel 01/16/2025 7:55 AM EDT - 01/16/2025 11:59 PM EDT Hospital Encounter [facility] Infusion [address] [place] [address] Myelodysplasia (myelodysplastic syndrome) (CMS/HCC) (Primary Dx) Discharge Disposition: Home or Self Care 01/16/2025 Travel 01/15/2025 9:58 AM EDT - 01/15/2025 11:59 PM EDT Hospital Encounter [facility] Infusion [address] [place] [address] Discharge Disposition: Home or Self Care 01/15/2025 8:11 AM EDT - 01/15/2025 9:57 AM EDT Hospital Encounter [facility] Infusion [address] [place] [address] Myelodysplasia (myelodysplastic syndrome) (CMS/HCC) (Primary Dx); Thrombocytopenia (CMS/HCC) Discharge Disposition: Home or Self Care 01/15/2025 Travel 01/14/2025 8:07 AM EDT - 01/14/2025 11:59 PM EDT Hospital Encounter [facility] In[facility] 1 [address] [place] [address] Myelodysplasia (myelodysplastic syndrome) (CMS/HCC) (Primary Dx) Discharge Disposition: Home or Self Care 01/14/2025 Travel 01/13/2025 11:30 AM EDT - 01/13/2025 11:59 PM EDT Hospital Encounter [facility] Infusion [address] [place] [address] Myelodysplasia (myelodysplastic syndrome) (CMS/HCC) (Primary Dx); Thrombocytopenia (CMS/HCC) Discharge Disposition: Home or Self Care 01/13/2025 10:00 AM EDT Office Visit [facility] Hematology/BMT and Cellular Therapy Program [address] [address] Isaura Wynn APRN Myelodysplasia (myelodysplastic syndrome) (CMS/HCC) (Primary Dx) 01/13/2025 9:30 AM EDT Clinical Support [facility] Hematology/BMT and Cellular Therapy Program [address] [address] 01/13/2025 Travel 01/12/2025 Telephone [facility] Hematology/BMT and Cellular Therapy Program [address] [address] Virgen Vargas MD 01/06/2025 9:00 AM EDT Procedure Visit [facility] Hematology/BMT and Cellular Therapy Program [address] [address] Kierra Novak APRN Myelodysplasia (myelodysplastic syndrome) (CMS/HCC) 01/06/2025 8:30 AM EDT Clinical Support [facility] Hematology/BMT and Cellular Therapy Program [address] [address] Nate Ponce RN 01/06/2025 Travel 01/05/2025 Travel 01/01/2025 [facility] Monona Kodi [address] [facility] [place] [address] Ra Best MD 12/23/2024 Orders Only [facility] Hematology/BMT and Cellular Therapy Program [address] [address] Adam Conway RN Myelodysplasia (myelodysplastic syndrome) (CMS/HCC) (Primary Dx) 12/22/2024 9:58 AM EDT - 12/22/2024 11:59 PM EDT Hospital Encounter [facility] Infusion [address] [place] [address] Myelodysplasia (myelodysplastic syndrome) (CMS/HCC) (Primary Dx) Discharge Disposition: Home or Self Care 12/22/2024 8:24 AM EDT - 12/22/2024 9:57 AM EDT Hospital Encounter [facility] Infusion [address] [place] [address] Myelodysplasia (myelodysplastic syndrome) (CMS/HCC) (Primary Dx); Thrombocytopenia (CMS/HCC) Discharge Disposition: Home or Self Care 12/22/2024 Travel 12/21/2024 8:30 AM EDT - 12/21/2024 11:59 PM EDT Hospital Encounter [facility] Infusion [facility] 1 [address] [place] [address] Myelodysplasia (myelodysplastic syndrome) (CMS/HCC) (Primary Dx) Discharge Disposition: Home or Self Care 12/21/2024 Travel 12/20/2024 8:08 AM EDT - 12/20/2024 11:59 PM EDT Hospital Encounter [facility] 1 [address] [place] [address] Myelodysplasia (myelodysplastic syndrome) (CMS/HCC) (Primary Dx); Thrombocytopenia (CMS/HCC); SOB (shortness of breath) Discharge Disposition: Home or Self Care 12/20/2024 Travel 12/19/2024 8:30 AM EDT - 12/19/2024 11:59 PM EDT Hospital Encounter [facility]fusion [facility] 2 [address] [place] [address] Myelodysplasia (myelodysplastic syndrome) (CMS/HCC) (Primary Dx) Discharge Disposition: Home or Self Care 12/19/2024 Travel 12/18/2024 9:46 AM EDT - 12/18/2024 11:59 PM EDT Hospital Encounter [facility] Infusion [address] [place] [address] Myelodysplasia (myelodysplastic syndrome) (CMS/HCC) (Primary Dx) Discharge Disposition: Home or Self Care 12/18/2024 8:30 AM EDT - 12/18/2024 9:45 AM EDT Hospital Encounter [facility] Infusion [address] [place] [address] Myelodysplasia (myelodysplastic syndrome) (CMS/HCC) (Primary Dx); Thrombocytopenia (CMS/HCC) Discharge Disposition: Home or Self Care 12/18/2024 Travel 12/17/2024 8:23 AM EDT - 12/17/2024 11:59 PM EDT Hospital Encounter [facility] Infusion [address] [place] [address] Myelodysplasia (myelodysplastic syndrome) (CMS/HCC) (Primary Dx); Thrombocytopenia (CMS/HCC) Discharge Disposition: Home or Self Care 12/17/2024 Travel 12/16/2024 11:00 AM EDT - 12/16/2024 11:59 PM EDT Hospital Encounter [facility] Infusion [address] [place] [address] Myelodysplasia (myelodysplastic syndrome) (CMS/HCC) (Primary Dx) Discharge Disposition: Home or Self Care 12/16/2024 10:00 AM EDT - 12/16/2024 10:59 AM EDT Hospital Encounter [facility] Infusion [address] [place] [address] Myelodysplasia (myelodysplastic syndrome) (CMS/HCC) (Primary Dx); Thrombocytopenia (CMS/HCC) Discharge Disposition: Home or Self Care 12/16/2024 8:30 AM EDT Office Visit [facility] Hematology/BMT and Cellular Therapy Program 750 [facility], [address] [place] [address] [place] [address] Isaura Wynn APRN Myelodysplasia (myelodysplastic syndrome) (CMS/HCC) (Primary Dx) 12/16/2024 8:00 AM EDT Clinical Support [facility] Hematology/BMT and Cellular Therapy Program 750 [facility], [address] [place] [address] [place] [address] 12/16/2024 Orders Only [facility] Hematology/BMT and Cellular Therapy Program 750 [facility], [address] [place] [address] [place] [address] Christina Ramos MD Myelodysplasia (myelodysplastic syndrome) (CMS/HCC) (Primary Dx) 12/16/2024 Travel 12/12/2024 Orders Only [facility] Hematology/BMT and Cellular Therapy Program 750 [facility], [address] [place] [phone] Gricel Gonzalez RN 12/11/2024 2:30 PM EDT Office Visit [facility] Vascular Interventional Radiology [address] [place] [address] Judy Leung, ESTRELLA, SHEEBA Port-A-Cath in place (Primary Dx); Myelodysplasia (myelodysplastic syndrome) (CMS/HCC) 12/11/2024 1:00 PM EDT Clinical Support 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); Pancytopenia due to chemotherapy (CMS/HCC); Immunosuppressed due to chemotherapy 12/11/2024 8:30 AM EDT Clinical Support [facility] Hematology/BMT and Cellular Therapy Program [address] [facility], [address] [place] [phone] Myelodysplasia (myelodysplastic syndrome) (CMS/HCC) 12/11/2024 Orders Only [facility] Hematology/BMT and Cellular Therapy Program 750 [facility], [address] [place] [phone] Shahla Mejia RN 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 Cancer Acute Treatment Clinic [address] [facility], 2nd [place] [phone] Myelodysplasia (myelodysplastic syndrome) (CMS/HCC) (Primary Dx); Thrombocytopenia (CMS/HCC) 12/09/2024 9:00 AM EDT Procedure Visit [facility] Hematology/BMT and Cellular Therapy Program [address] [facility], [address] [place] [phone] Kierra Novak APRN Myelodysplasia (myelodysplastic syndrome) (CMS/HCC) 12/09/2024 8:30 AM EDT Clinical Support [facility] Hematology/BMT and Cellular Therapy Program [address] [phone] 12/09/2024 Telephone [facility] Hematology/BMT and Cellular Therapy Program [address] [place] [phone] Essie Ricks RN 12/09/2024 Travel 12/08/2024 Travel 12/04/2024 Telephone [facility] Vascular Interventional Radiology [address] [place] [address] Martha William 12/01/2024 8:41 AM EDT - 12/01/2024 11:59 PM EDT Hospital Encounter [facility] Interventional Radiology [address] [place] [address] Gela Singer Thrombocytopenia (CMS/HCC) (Primary Dx); Myelodysplasia (myelodysplastic syndrome) (CMS/HCC) Discharge Disposition: Home or Self Care 12/01/2024 Travel 11/26/2024 10:00 AM EDT Office Visit [facility]ascular Interventional Radiology [address] [place] [address] Latoya Nunez APRN Preop examination (Primary Dx) 11/26/2024 Travel 11/25/2024 Telephone [facility] Hematology/BMT and Cellular Therapy Program [address] [place] [address] MastChichoMichelle N Distress Screen Follow-up 11/24/2024 2:30 PM EDT - 11/24/2024 11:59 PM EDT Hospital Encounter [facility] Infusion Clinic 1 [address] [place] [address] Discharge Disposition: Home or Self Care 11/24/2024 1:59 PM EDT - 11/24/2024 2:29 PM EDT Hospital Encounter [facility] Infusion Clinic 1 [address] [place] [address] Myelodysplasia (myelodysplastic syndrome) (CMS/HCC) (Primary Dx); Thrombocytopenia (CMS/HCC) Discharge Disposition: Home or Self Care 11/24/2024 Travel 11/23/2024 1:43 PM EDT - 11/23/2024 11:59 PM EDT Hospital Encounter [facility] Infusion Clinic 1 [address] [place] [address] Myelodysplasia (myelodysplastic syndrome) (CMS/HCC) (Primary Dx) Discharge Disposition: Home or Self Care 11/23/2024 Travel 11/22/2024 1:59 PM EDT - 11/22/2024 11:59 PM EDT Hospital Encounter [facility] Infusion Clinic 1 [address] [place] [address] Myelodysplasia (myelodysplastic syndrome) (CMS/HCC) (Primary Dx); Thrombocytopenia (CMS/HCC) Discharge Disposition: Home or Self Care 11/22/2024 Travel 11/21/2024 1:30 PM EDT - 11/21/2024 11:59 PM EDT Hospital Encounter [facility] Infusion Clinic 1 [address] [place] [address] Myelodysplasia (myelodysplastic syndrome) (CMS/HCC) (Primary Dx) Discharge Disposition: Home or Self Care 11/21/2024 Travel 11/20/2024 2:06 PM EDT - 11/20/2024 11:59 PM EDT Hospital Encounter [facility] Infusion Clinic 1 [address] [place] [address] Myelodysplasia (myelodysplastic syndrome) (CMS/HCC) (Primary Dx) Discharge Disposition: Home or Self Care 11/20/2024 1:36 PM EDT - 11/20/2024 2:05 PM EDT Hospital Encounter [facility] Infusion [facility] 1 [address] [place] [address] Myelodysplasia (myelodysplastic syndrome) (CMS/HCC) (Primary Dx); Thrombocytopenia (CMS/HCC) Discharge Disposition: Home or Self Care 11/20/2024 Travel 11/19/2024 2:00 PM EDT - 11/19/2024 11:59 PM EDT Hospital Encounter [facility]fusion [facility] 1 [address] [place] [address] Myelodysplasia (myelodysplastic syndrome) (CMS/HCC) (Primary Dx) Discharge Disposition: Home or Self Care 11/19/2024 Travel 11/19/2024 Orders Only [facility] Hematology/BMT and Cellular Therapy Program [address] [place] [address] Adam Conway RN Myelodysplasia (myelodysplastic syndrome) (CMS/HCC) (Primary Dx) 11/18/2024 12:25 PM EDT - 11/18/2024 11:59 PM EDT Hospital Encounter [facility]fusion [facility] 1 [address] [place] [address] Myelodysplasia (myelodysplastic syndrome) (CMS/HCC) (Primary Dx); Thrombocytopenia (CMS/HCC) Discharge Disposition: Home or Self Care 11/18/2024 11:00 AM EDT Office Visit [facility] Hematology/BMT and Cellular Therapy Program [address] [place] [address] Isaura Wynn APRN Myelodysplasia (myelodysplastic syndrome) (CMS/HCC) (Primary Dx) 11/18/2024 10:30 AM EDT Clinical Support [facility] Hematology/BMT and Cellular Therapy Program [address] [place] [address] [place] [address] 11/18/2024 Telephone [facility] [address] [place] [address] Maia Velasquez, PharmD 11/18/2024 Telephone [facility] Hematology/BMT and Cellular Therapy Program [address] [phone] Brittny Mahoney RN 11/18/2024 Telephone [facility] Hematology/BMT and Cellular Therapy Program 750 [facility], [address] [place] [phone] Gricel Gonzalez RN 11/18/2024 Travel 11/17/2024 Travel 11/10/2024 3:00 PM EDT - 11/10/2024 11:59 PM EDT Hospital Encounter [facility] [address] [place] [address] Myelodysplasia (myelodysplastic syndrome) (CMS/HCC) (Primary Dx); Thrombocytopenia (CMS/HCC) Discharge Disposition: Home or Self Care 11/10/2024 2:00 PM EDT Procedure Visit [facility] Hematology/BMT and Cellular Therapy Program [address] [phone] Elaina Boss, PA Myelodysplasia (myelodysplastic syndrome) (CMS/HCC) (Primary Dx) 11/10/2024 1:30 PM EDT Clinical Support [facility] Hematology/BMT and Cellular Therapy Program [address] [phone] Eliana Vicente RN 11/10/2024 Travel 11/05/2024 11:00 AM EDT Clinical Support [facility] [address] [phone] Dyspnea on exertion 11/05/2024 10:00 AM EDT Office Visit [facility] [address] [phone] Elsa Razo, ESTRELLA Pre-transplant evaluation for stem cell transplant (Primary Dx); Myelodysplasia (myelodysplastic syndrome) (CMS/HCC); Dyspnea on exertion; Coronary artery disease involving [place] coronary artery of [place] heart without angina pectoris; Thrombocytopenia (CMS/HCC) 11/05/2024 Results Follow-Up [facility] [address] [facility], 2nd [place] [address] Elsa Razo, ESTRELLA 11/05/2024 Travel from Last 3 Months Immunizations Immunization [...] first t manav in the morning (EYE-MEDICAL IMAGING TECHNICIAN) to steady your nerves or to [...] Mass Index 27.73 02/02/2025 8:11 AM EDT Plan of Treatment Upcoming Encounters Date Type Department Care Team ([facility] st Contact Info) Description 02/10/2025 8:30 AM EDT Clinical Support [facility] Hematology/BMT and Cellular Therapy Program [address] [address] 02/10/2025 9:00 AM EDT Office Visit [facility] Hematology/BMT and Cellular Therapy Program [address] [phone] Elaina Boss, ARAM 800 [facility] [address] [place] [phone] 02/10/2025 10:30 AM EDT Appointment [facility] Infusion [address] [place] [address] 02/11/2025 2:00 PM EDT Appointment [facility] Infusion Clinic 1 [address] [place] [address] 02/12/2025 2:00 PM EDT Appointment [facility] Infusion Clinic 1 [address] [place] [address] 02/13/2025 2:00 PM EDT Appointment [facility] Infusion Clinic 1 [address] [place] [address] 02/14/2025 2:00 PM EDT Appointment [facility] Infusion Clinic 1 [address] [place] [address] 03/10/2025 8:30 AM EDT Clinical Support [facility] Hematology/BMT and Cellular Therapy Program [address] [place] [phone] 03/10/2025 9:00 AM EDT Office Visit [facility] Hematology/BMT and Cellular Therapy Program [address] [facility] [place] [address] Isaura Wynn, TIEING MACHINE OPERATOR 800 [facility] [address] [place] [address] 03/10/2025 11:20 AM EDT Office Visit [facility] [address] [facility], 2nd [place] [address] Elsa Razo, TIEING MACHINE OPERATOR [address] [place] [address] Health Maintenance Due Date Last [...] 2015 [facility]-Abdominal Aortic Aneurysm (AAA) Screening 2020 [id number] Vaccine (3 - Pfizer risk series) 11/11/2020 10/14/2020, 09/22/2020 [facility]-Influenza Vaccine (#1) 2025 06/12/2024, [facility]-Depression Screening 01/13/2026 01/13/2025, 02/2 [facility]-DTaP,Tdap,and Td Vaccines (2 - Td or [...] this topic Medical Devices Implanted Type Area Central Aisle Cashier Device Identifier Shelf Expiration Date Model / Serial / Lot Port Clearvue Power 8fr - [id number] Implanted:Qty: 1 on 12/01/2024 by Mckinley Lee MD at [facility]-[id number] / / Procedures Procedure Name Priority Date/Time Associated Diagnosis Comments CT GUIDED ASP AND BIOPSY BONE MARROW Routine 02/02/2025 10:00 AM EDT Myelodysplasia (myelodysplastic syndrome) (CMS/HCC) TRANSFUSE RED BLOOD CELLS Routine 01/17/2025 9:30 [...] EDT Pre-transplant evaluation for stem cell transplant HEPATITIS C ANTIBODY W/REFLEX TO HCV QUANT PCR Routine 09/29/2024 12:51 PM EDT Myelodysplasia (myelodysplastic syndrome) (CMS/HCC) from Last 3 Months or Most Recently Relevant to Health Maintenance Results * CT Guided Asp and Biopsy [...] myeloid leukemia. He has been referred to [facility] by oncologist Dr. Vargas for repeat BM evaluation after he was unresponsive to Azacitidine / Venetoclax. Patient presents for image guided bone marrow aspiration and bone biopsy. TECHNIQUE: Insecticide Supervisor: Elisha Bergman M.D. Secondary Rn Occupational: Sara Godwin MS Nurse: Christelle Santillan Technologist: [...] syndrome/acute myeloid leukemia.He has been referred to [facility] by oncologist Dr. Vargas for repeat BMevaluation after he was unresponsive to Azacitidine / Venetoclax. Patientpresents for image guided bone marrow aspiration and bone biopsy. TECHNIQUE: Insecticide Supervisor: Elisha Bergman M.D. Secondary Rn Occupational: Sara Godwin MS Nurse: Christelle Santillan Technologist: [...] 7:02 PM Final report signed by Elisha Bergamn MD on 02/02/2025 7:05 PM Virgen Vargas MD IMG CT PROCEDURES Final Resul t * Transfuse RBC, Irradiated (01/17/2025 11:42 AM EDT) Only the most recent of7 resultswithin the time period is included. Kayli CHIU BLOOD TRANSFUSION ORDERA BLES Final Result * Prepare Leukocyte Reduced RBC: 1 Units, Irradiated (01/17/2025 8:56 AM EDT) Only the most recent of7 resultswithin the time period is included. [facility] Product Code [id number] BLOO D BANK Dispense Status Transfused BLOOD BANK Blood Expiration Date [id number] BLOOD BANK Unit Number [id number] B LOOD BANK Product Blood Type 9500 BLOOD BANK Blood Type O- BLOOD BANK Crossmatch Compatible BLOOD BANK Other Kayli CHIU BLOOD BANK PRODUCT ORDER VIKAS Final Result Performing Organization Address City/State/[facility] Co de Phone Number BLOOD BANK [address] [place] [address], * (ABNORMAL) CBC and differential (01/17/2025 8:03 AM EDT) Only the most recent of16 resultswithin the time period is included. Pathologist [...] ORDERABLES Final Re sult Performing Organization Address City/[facility]/ZIP Co de Phone Number [facility] [address] [place] [address] * Type and Screen (01/16/2025 9:54 AM EDT) Only the most recent of6 [...] ORDERABLE S Final Result Performing Organization Address City/[facility]/ZIP Co de Phone Number BLOOD BANK [address] [place] [address], * (ABNORMAL) Platelet count (01/16/2025 8:12 AM [...] [facility] [address] [place] [address] * (ABNORMAL) CBC W/O Differential (01/16/2025 8:12 [...] [facility] [address] [place] [address] * Transfuse platelets (01/15/2025 10:55 AM EDT) Only the most recent of11 resultswithin the time period is included. Kayli CHIU BLOOD TRANSFUSION ORDERA BLES Final Result * Exception to Standard Practice, Pathologist Interpretation (01/15/2025 10:08 AM EDT) Only the most recent of10 resultswithin the time period is included. Clinical [...] Result Performing Organization Address [facility]/ZIP Co de Phone Number BLOOD BANK [address] [place] [address], * Prepare Leukocyte Reduced Platelets: 1 Units (01/15/2025 9:55 AM EDT) Only the most recent of12 resultswithin the time period is included. Product Code [id number] BLOO D BANK Dispense Status Transfused BLOOD BANK Blood Expiration Date [id number] BLOOD BANK Unit Number [id number] CH B LOOD BANK Product Blood Type 6200 BLOOD BANK Blood Type A+ BLOOD BANK Blood Venous blood specimen / Unknown Kayli CHIU BLOOD BANK PRODUCT ORDER VIKAS Final Result Performing Organization Address [facility] Co de Phone Number BLOOD BANK [address] [place] [address], * (ABNORMAL) Uric acid (01/15/2025 8:17 AM [...] ORDERABLES Final Re sult Performing Organization Address City/[facility]/ZIP Co de Phone Number [facility] [address] [place] [address] * Phosphorus (01/15/2025 8:17 AM EDT) Only [...] ORDERABLES Final Re sult Performing Organization Address City/[facility]/ZIP Co de Phone Number [place] [phone] * Magnesium (01/15/2025 8:17 AM EDT) Only the most recent of3 resultswithin the time period is included. Magnesium, Plasma 2.2 1.9 - 2.4 mg/dL 01/15/2025 9:19 AM EDT [facility] Blood Blood sample taken from central line / Unknown (Port) Long-term Catheter / Unknown 01/15/2025 8:17 AM EDT 01/15/2025 8:47 AM EDT Virgen Vargas MD LAB BLOOD [place] [address] * LACTATE DEHYDROGENASE (01/15/2025 8:17 AM EDT) [...] [facility] [address] [place] [address] * (ABNORMAL) BASIC METABOLIC PANEL (01/15/2025 8:17 [...] sult [facility] [address] [place] [address] * (ABNORMAL) Comprehensive Metabolic Panel, Plasma (01/13/2025 10:02 AM EDT) Only the most recent of12 resultswithin the time period is included. Glucose, [...] ult [facility] [address] [place] [address] * BIOPSY BONE MARROW (01/06/2025 10:00 AM EDT) Narrative Kierra Novak APRN - 01/06/2025 10:00 AM EDT Kierra Novak APRN 01/06/2025 10:24 AM Biopsy bone marrow Date/Time: 01/06/2025 10:00 AM Performed by: Kierra Novak APRN Authorized by: Kierra Novak APRN Consent: Consent obtained: Written Consent given by: Patient Risks, benefits, and alternatives were discussed: yes Risks discussed: Bleeding, infection and pain [place] protocol: Procedure explained and questions answered to [...] well, no immediate complications us Kierra Novak ESTRELLA IN CLINIC/BEDSIDE ORDERAB LES Final Result * [...] disease. Final interpretation requires morphologic correlation ([id number]). The following antibodies were used in this analysis: CD45, CD2, CD3, CD4, CD5, CD7, CD8, CD10, CD13, CD14, CD15, CD16, CD19, CD20, CD33, CD34, CD38, CD56, CD117, HLA-DR, kappa surface light chains, lambda surface light chains, CD123 01/07/2025 10:18 AM EDT [facility] Disclaimer This test was developed and its performance characteristics determined by the Immuno-Molecular Pathology Laboratory at the [facility]. It has not been cleared [...] clinical laboratory testing. 01/07/2025 10:18 AM EDT [facility] Pathologist Signature Reviewed by: Tessie Peralta MD 01/07/2025 10:18 AM EDT [facility] MRD Indicated Test Not Indicated 10:18 AM EDT [facility] Bone Marrow Specimen from bone marrow obtained by aspiration / Unknown Non-blood Collection / Unknown 01/06/2025 9:48 AM EDT 01/06/2025 11:20 AM EDT us Virgen Vargas MD LAB FLOW CYTOMETRY ORDERABLES Final Result [facility] [address] [place] [address] * Bone marrow exam (01/06/2025 9:48 AM EDT) Only the most recent of3 resultswithin the time period is included. Case Report Bone Marrow Case: [id number] Authorizing Provider: Virgen Vargas MD Collected: 01/06/2025 0948 Ordering Location: [facility] Hematology/BMT and Received: 01/06/2025 1108 Cellular Therapy Program Pathologist: Tessie Peralta MD Specimens: A) - Bone Marrow Aspirate, left B) - Bone Marrow Biopsy, left C) - Peripheral Blood for Bone Marrow 6:13 PM EDT [facility] Final Diagnosis BONE MARROW, LEFT POSTERIOR ILIAC CREST, (PERIPHERAL SMEAR, ASPIRATE SMEARS, AND CORE BIOPSY): - MILDLY HYPOCELLULAR BONE MARROW WITH ERYTHROID HYPERPLASIA, MARKEDLY REDUCED GRANULOPOIESIS, PERSISTENT DYSPOIESIS AND 10% BLASTS, SEE COMMENT. 6:13 PM EDT [facility] at 1813 EDT Comment The marrow cellularity is composed of erythroid cells with markedly reduced granulopoiesis and decreased megakaryocytes. Persistent trilineage dyspoiesis is noted. The blast percentages are higher by flow cytometry analysis as the majority of marrow cellularity consists of erythroid precursors that are removed by flow cytometry. 5 6:13 PM T [facility] Clinical Information AML 12/22 5 6:13 PM T [facility] CBC and [...] blasts are identified. 5 6:13 PM T [facility] Bone Marrow Differential BONE MARROW DIFFERENTIAL: 400 cells Normal Patient Neutrophils 15-50 0 Metamyelocytes 4-19 1 Myelocytes 1-18 2 Promyelocytes 1-8 1 Blasts 0-2 10 Monocytes 0-5 0 Erythroid 16-38 73 Lymphocytes 3-24 4 Eosinophils 0-6 1 Basophils 0-2 0 Plasma cells 0-4 8 Other 5 6:13 PM EDT [facility] Bone Marrow Aspirate and Biopsy Core biopsy [...] trabeculae are unremarkable. 5 6:13 PM EDT [facility] Special and Immunohistochemical Stains Immunohistochemica l [...] at the [facility], [address] [place] [address]. All tests reported here, except those addressing [...] on decalcified specimens. 5 6:13 PM EDT [facility] Flow Cytometry Interpretation APPROXIMATELY 16% MYELOID BLASTS; EXPRESSING CD34, CD117, CD13, CD33, HLA-DR, PARTIAL CD7, PARTIAL CD123, VARIABLE CD38, AND MODERATE CD45, SEE COMMENT, BONE MARROW ASPIRATE ([id number]) 5 6:13 PM EDT [facility] ORDERABLES Terri l Result Performing Organization Address City/[facility]/ZIP Co de Phone Number [facility] [address] [place] [address] * Group A Streptococcus by PCR (12/16/2024 9:40 AM EDT) Group A Streptococcus PCR Result Not Detected Not Detected 12/16/2024 11:53 AM EDT [facility] Swab Pharyngeal structure / Unknown Non-blood Collection / Unknown 12/16/2024 9:40 AM EDT 12/16/2024 10:10 AM EDT Isaura Wynn APRN LAB MICROBIOLOGY - GENERAL ORD ERABLES Final Result Performing Organization Address City/[facility]/ZIP Co de Phone Number [facility] [address] [place] [address] * Streptococcus Culture (12/16/2024 9:40 AM EDT) Culture Reading Strep A No Streptococcus pyogenes or Streptococcus dysgalactiae isolated 12/17/2024 2:28 PM EDT [facility] Swab Pharyngeal structure / Unknown Non-blood Collection / Unknown 12/16/2024 9:40 AM EDT 12/16/2024 10:10 AM EDT Isaura Wynn APRN LAB MICROBIOLOGY - GENERAL ORD ERABLES Final Result Performing Organization Address [facility] Co de Phone Number [facility] [address] [place] [address] * Morphology (12/11/2024 8:38 AM EDT) Only the most recent of3 resultswithin the time period is included. Elliptocytes/ Ovalocytes Present LAB HEMATOLOGY METHOD 12/11/2024 10:53 AM EDT [facility] RBC Morphology Slide Reviewed LAB HEMATOLOGY METHOD 12/11/2024 10:53 AM EDT [facility] Platelet Estimate Platelet smear estimate consistent with automated count LAB HEMATOLOGY METHOD 12/11/2024 10:53 AM EDT [facility] Blood Venous blood specimen / Unknown Venipuncture / Unknown 12/11/2024 8:38 AM EDT 12/11/2024 8:50 AM EDT Virgen Vargas MD LAB BLOOD ORDERABLES Final Re sult Performing Organization Address City/[facility] Co de Phone Number [facility] [address] [place] [address] * (ABNORMAL) Manual Differential (12/11/2024 8:38 AM EDT) Only the most recent of3 resultswithin the time period is included. Blasts % 1 % LAB HEMATOLOGY METHOD 12/11/2024 10:53 AM EDT [facility] Promyelocytes % 0 % LAB HEMATOLOGY METHOD 12/11/2024 10:53 AM EDT [facility] Myelocytes % 0 % LAB HEMATOLOGY METHOD 12/11/2024 10:53 AM EDT [facility] Metamyelocytes % 0 % LAB HEMATOLOGY METHOD 12/11/2024 10:53 AM EDT [facility] Neutrophils % 4 % LAB HEMATOLOGY METHOD 12/11/2024 10:53 AM EDT [facility] Lymphocytes % 90 % LAB HEMATOLOGY METHOD 12/11/2024 10:53 AM EDT [facility] Reactive Lymphocytes % 3 % [...] 12/11/2024 10:53 AM EDT [facility] Eosinophils Absolute 0.00 0.00 - 0.50 10*3/uL LAB HEMATOLOGY METHOD 12/11/2024 10:53 AM EDT [facility] Basophils Absolute 0.00 0.00 - 0.10 10*3/uL LAB HEMATOLOGY METHOD 12/11/2024 10:53 AM EDT [facility] Blood Venous blood specimen / Unknown Venipuncture / Unknown 12/11/2024 8:38 AM EDT 12/11/2024 8:50 AM EDT us Virgen Vargas MD LAB BLOOD ORDERABLES Final Re sult [facility] [address] [place] [address] * Peripheral blood smear, pathologist interpretation (12/11/2024 [...] Signature, Peripheral Smear 12/11/2024 4:46 PM EDT [facility] Comment:Reviewed by: Omar Peralta MD Blood Venous blood specimen / Unknown Venipuncture / Unknown 12/11/2024 8:38 AM EDT 12/11/2024 8:50 AM EDT us Virgen Vargas MD LAB PATHOLOGY ORDERABLES Terri lara Result Performing Organization Address City/[facility] [place] [place] [address] * Chromosome Karyotype, Oncology (12/09/2024 10:15 AM EDT) Only the most recent of2 resultswithin the time period is included. Pathologist [facility] Specimen Type Bone Marrow 12/16/2024 5:59 PM EDT [facility] Clinical Indication Acute Myeloid Leukemia 12/16/2024 5:59 PM EDT [facility] Specimen Adequacy Adequate 025 5:59 PM EDT [facility] Chromosome Analysis Result Giemsa-banded metaphase cells from [...] were observed on this patient's previous specimen [facility]-[id number] and indicate persistent disease. Clinical correlation is recommended. Note: Per [employer] (CAP) requirement additional karyotypes were [...] Result [facility] [address] [place] [address] * BIOPSY BONE MARROW (12/09/2024 10:00 AM EDT) Narrative Kierra Novak APRN - 12/09/2024 10:00 AM EDT Kierra Novak APRN 12/09/2024 12:08 PM Biopsy bone marrow Date/Time: 12/09/2024 10:00 AM Performed by: Kierra Novak APRN Authorized by: Kierra Novak APRN Consent: Consent obtained: Written Consent given by: Patient Risks, benefits, and alternatives were discussed: yes Risks discussed: Bleeding, infection and pain [place] protocol: Procedure explained and questions answered to [...] for port placement. New AML, starting chemotherapy. Insecticide Supervisor: Mckinley Lee MD Secondary Rn Occupational: Dr. David Holt Rad Dose: 6 mGy [...] was placed supine on the fluoro table. Contracting Specialist ultrasonography revealed the vein to be [...] for port placement. New AML, starting chemotherapy. Insecticide Supervisor: Mckinley Lee MD Secondary Rn Occupational: Dr. David Holt Rad Dose: 6 mGy [...] patient was placed supine on the fluoro table.Contracting Specialist ultrasonography revealed the vein to be [...] MD on 12/02/2024 7:02 AM Isaura Wynn APRN IMG IR PROCEDURES Final Result * (ABNORMAL) [...] [facility] [address] [place] [address] * Protime-INR (11/26/2024 10:51 AM EDT) Prothrombin Time 13.8 12.0 - 14.3 sec LAB COAGULATION METHOD 11/26/2024 11:52 AM EDT [facility] INR 1.1 0.9 - [...] INR 2.5 to 3.5 Prevention of recurrent SD INR 2.5 to 3.5 us Latoya Nunez TIEING MACHINE OPERATOR LAB BLOOD ORDERABLES Final R esult Performing Organization Address City/[facility] Co de Phone Number [facility] [address] [place] [address] * BIOPSY BONE MARROW (11/10/2024 2:00 PM [...] AM EDT 11/05/2024 11:21 AM EDT us Elas Razo TIEING MACHINE OPERATOR LAB BLOOD ORDERABLES Fin al Result Performing Organization Address [facility] Co de Phone Number [facility] [address] [place] [address] * ECG Adult (Now - Performed in your clinic) (11/05/2024 10:10 AM EDT) EKG DIAGNOSIS CLASS Normal MUSE ECG Ventricular Rate 71 BPM MUSE ECG Atrial Rate 71 BPM MUSE ECG AR Interval 154 ms MUSE ECG QRSD Interval 80 ms MUSE ECG QT Interval 404 ms MUSE ECG QTC Interval 439 ms MUSE ECG P [place] 45 degrees MUSE ECG R [place] 15 degrees MUSE ECG T Wave [place] 42 degrees MUSE ECG Diagnosis Normal sinus rhythm MUSE ECG Diagnosis Normal ECG MUSE ECG Diagnosis MUSE ECG Diagnosis Confirmed by Orestes Stone ([id number]) on 11/05/2024 10:19:58 AM MUSE ECG 11/05/2024 10:1 0 AM EDT 11/05/2024 10:19 AM EDT us Elsa Razo APRN ECG ORDERABLES Final Re sult MUSE ECG * Hepatitis C Antibody w/Reflex to HCV Quant PCR (09/29/2024 12:51 PM EDT) Hepatitis C Antibody Negative Negative 09/29/2024 2:06 PM EDT [facility] Blood Venous blood specimen / Unknown Venipuncture / Unknown 09/29/2024 12:51 PM EDT 09/29/2024 1:22 PM EDT Virgen Vargas MD LAB BLOOD ORDERABLES Final Re sult [facility] [address] [place] [address] from Last 3 Months or Most Recently Relevant to Health Maintenance Insurance [facility] MEDICARE Care Teams Complaint Inspector Relationship Specialty Start Date End Date Zhao Harris MD [address] [facility] [address] [id number] PCP - General 12/03/20
--- OUTSIDE RECORDS SUMMARY | 2025-02-03 08:13 | XMS_ITS | Referral Summary ---
Author Organization [employer] ([place], [place], [place], [place]) Address [address] [place] [address] Care Team Providers Care Tobacco Stemmer Machine Name Role Phone Unavailable Primary Care Provider [...]
--- OUTSIDE RECORDS SUMMARY | 2025-02-03 08:13 | XMS_ITS | Encounter Summary ---
Author Organization [facility] Address [address] [place] [address] Care Team Providers Care Data Operations Manager Name Role Phone Zhao Harris MD Primary Care Provider [phone] Encounter Details Date Type Department Care Team (Late Contact Info) Description 10/15/2024 Lab Requisition [facility] [address] [place] [address] Virgen Vargas MD [address] [facility] [address] [place] [phone] Abnormal finding of blood chemistry, unspecified Social [...] Department Care Team (Late Contact Info) Description 02/10/2025 8:30 AM EDT Clinical Support [facility] Hematology/BMT and Cellular Therapy Program [address] [place] [phone] 02/10/2025 9:00 AM EDT Office Visit [facility] Hematology/BMT and Cellular Therapy Program [address] [place] [phone] Elaina Boss, PA 800 [facility] [address] [place] [phone] 02/10/2025 10:30 AM EDT Appointment [facility] In[facility] [address] [place] [phone] 02/11/2025 2:00 PM EDT Appointment [facility] 1 [address] [place] [phone] 02/12/2025 2:00 PM EDT Appointment [facility] 1 [address] [place] [phone] 02/13/2025 2:00 PM EDT Appointment [facility] 1 [address] [place] [phone] 02/14/2025 2:00 PM EDT Appointment [facility] 1 [address] [place] [phone] 03/10/2025 8:30 AM EDT Clinical Support [facility] Hematology/BMT and Cellular Therapy Program [address] [phone] 03/10/2025 9:00 AM EDT Office Visit [facility] Hematology/BMT and Cellular Therapy Program [address] [place] [phone] Isaura Wynn, WOOD BUCKER 800 [facility] [address] [place] [phone] 03/10/2025 11:20 AM EDT Office Visit [facility] Res[facility] 800 [facility], [address]nd [place] [phone] Elsa Razo, WOOD BUCKER [address] [place] [address] documented as of this encounter Procedures Procedure Name Priority Date/Time Associated Diagnosis Comments BONE MARROW EXAM CONSULT Routine 10/15/2024 1:27 PM EDT Abnormal finding of blood chemistry, unspecified documented in this encounter Results * Bone marrow exam consult (10/15/2024 1:27 PM EDT) Case Report Bone Marrow Case: [id number] Authorizing Provider: Virgen Vargas MD Collected: 10/15/2024 1327 Ordering Location: [facility] Received: 10/15/2024 1327 Pathologist: Martha Lopez MD Specimen: Bone Marrow Aspirate, [id number] 10/16/2024 2:02 PM EDT [facility] Final Diagnosis A. 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 10/16/2024 2:02 PM EDT [facility] at 1402 EDT Comment Findings are those of MDS with increased blasts type 2 (MDS-IB-2) in the WHO 5th edition and MDS/AML in the International Consensus Classification. 10/16/2024 2:02 PM EDT [facility] Clinical Information R79.9 - Abnormal finding of blood chemistry, unspecified [ICD-10-CM] 10/16/2024 2:02 PM EDT [facility] CBC and Differential PERIPHERAL [...] Granulocytes % 0 10/16/2024 2:02 PM EDT [facility] Bone Marrow Differential BONE MARROW DIFFERENTIAL: 200 cells Normal Patient Neutrophils 15-50 22 Metamyelocytes 4-19 3 Myelocytes 1-18 11 Promyelocytes 1-8 1 Blasts 0-2 13 Monocytes 0-5 4 Erythroid 16-38 41 Lymphocytes 3-24 4 Eosinophils 0-6 1 Basophils 0-2 0 Plasma cells 0-4 0 Other 10/16/2024 2:02 PM T [facility] Bone Marrow Aspirate and [...] trabeculae are unremarkable. 10/16/2024 2:02 PM T [facility] Flow Cytometry Interpretation Outside flow cytometry showed 17% myeloblasts expressing CD34, CD117, partial CD 38, partial CD7, HLA-DR, CD13 and variable CD33. 10/16/2024 2:02 PM T [facility] CYTOGENETICS/MOL ECULAR INTERPRETATION Cytogenetic analysis showed normal male karyotype. No FLT3 duplication or mutation was identified, and no NPM1 mutation was identified. 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 10/16/2024 2:02 PM T [facility] Gross Description A. [id number] Received along with a corresponding pathology report from Pathology & Cytology Laboratory are 12 slides labeled outside case: [id number] collected on 09/19/2024. 10/16/2024 2:02 PM T [facility] Bone Marrow Specimen from bone marrow obtained by aspiration / Unknown 10/15/2024 1:27 PM EDT 10/15/2024 1:27 PM EDT Virgen Vargas MD LAB PATHOLOGY ORDERABLES Terri lara Result [facility] [address] [place] [address] documented in this encounter Visit Diagnoses Diagnosis [...] as of this encounter Care Teams Data Operations Manager Relationship Specialty Start Date End Date Zhao Harris MD [address] [place] [address] PCP - General 12/03/20 documented as of this encounter
--- OUTSIDE RECORDS SUMMARY | 2025-02-03 08:13 | XMS_ITS | Encounter Summary ---
Author Organization [employer] ([place], [place], [place], [place]) Address [address] [place] [address] Care Team Providers Care Labor/Excavator Name Role Phone Unavailable Primary Care Provider Unavailabl e Encounter Details Date Type Department Care Team (Late st Contact Info) Description 07/10/2019 Transcribed Document [facility] Family Medicine [address] [place] [address] ProviderBrigida MD [address] [place] [address] Social History Tobacco Use Types [...] - Historical ProviderMD - 07/10/2019 9:45 AM BOX WORKER Event Note Entered On: 07/10/2019 11:04 EST Performed On: 07/10/2019 9:45 EST by Laquita Romero RN Event Note Event Date/Time : 07/10/2019 9:45 EST Event Location : Other: post-op Description of Event : Pt informed that next dose of [place] pain medication due @ 3:45pm today instead of 3:30pm. Laquita Romero RN - 07/10/2019 11:02 EST documented in this encounter Plan of Treatment Not on file documented as of this encounter Visit Diagnoses Not on filedocumented in this encounter
--- OUTSIDE RECORDS SUMMARY | 2025-02-03 08:13 | XMS_ITS | Encounter Summary ---
Author Organization [facility] Address [address] [place] [address] Care Team Providers Care Tool And Die Assembler Name Role Phone Zhao Harris MD Primary Care Provider [phone] Encounter Details Date Type Department Care Team [...] drink first t manav in the morning (EYE-NURSING UNIT MANAGER) to steady your nerves or to [...] ([facility] st Contact Info) Description 02/10/2025 8:30 AM EDT Clinical Support [facility] Hematology/BMT and Cellular Therapy Program [address] [phone] 02/10/2025 9:00 AM EDT Office Visit [facility] Hematology/BMT and Cellular Therapy Program [address] [phone] Elaina Boss, PA 800 [facility] [address] [phone] 02/10/2025 10:30 AM EDT Appointment [facility] Infusion [address] [place] [address] 02/11/2025 2:00 PM EDT Appointment [facility] 1 [address] [place] [address] 02/12/2025 2:00 PM EDT Appointment [facility] 1 [address] [place] [address] 02/13/2025 2:00 PM EDT Appointment [facility] 1 [address] [place] [address] 02/14/2025 2:00 PM EDT Appointment [facility] 1 [address] [place] [address] 03/10/2025 8:30 AM EDT Clinical Support [facility] Hematology/BMT and Cellular Therapy Program [address] [phone] 03/10/2025 9:00 AM EDT Office Visit [facility] Hematology/BMT and Cellular Therapy Program [address] [phone] Isaura Wynn, RAZOR SHARPENER [address] [facility] [address] [address] 03/10/2025 11:20 AM EDT Office Visit Pav [facility] Head[facility] Neck & Respiratory 800 [facility], [address]nd [place] [address] Elsa Razo, RAZOR SHARPENER [address] [place] [address] documented as of this encounter [...] documented as of this encounter Care Teams Tool And Die Assembler Relationship Specialty Start Date End Date Zhao Harris MD [address] [facility] [address], [place] [address] PCP - General 12/03/20 documented as of this encounter
--- OUTSIDE RECORDS SUMMARY | 2025-02-03 08:13 | XMS_ITS | Encounter Summary ---
Author Organization [employer] ([place], [place], [place], [place]) Address [address] [place] [address] Care Team Providers Care Concrete Paving Supervisor Name Role Phone Unavailable Primary Care Provider Unavailabl e Encounter Details Date Type Department Care Team (Late st Contact Info) Description 07/10/2019 Transcribed Document [facility] Medicine [address] [place] [address] ProviderBrigida MD [address] [place] [address] Social History Tobacco Use Types [...] - Brigida ProviderMD - 07/10/2019 7:57 AM MANAGER OF DATA [facility] Main OR PreOp Summary Primary Physician: SURY SHARMA MD-ORT Finalized Date/Time: 07/21/19 08:13:07 Pt. Name: HUGO AGUILAR JR, D.O.B./Sex: 1955 Male Med Rec #: [id number] Physician: SURY SHARMA MD-ORT Financial #: [id number] Pt. Type: O Room/Bed: Admit/Disch: 07/10/19 05:55:00 - 07/10/19 10:00:00 Institution: [facility] PreOp Case Times Entry 1 In Preop 07/10/19 06:10:00 Ready for Holding n/a Room Patient Ready for 07/10/19 07:19:00 Surgery Patient Out of Preop 07/10/19 07:35:00 Patient Out of n/a Holding Room Last Modified By: REAL SEVILLA 07/21/19 08:13:06 SJDiane PreOp Case Times Audit 07/21/19 08:13:06 Hot Dipper: FAY Modifier: CATLETDD <+> 1 Patient Out of Preop Finalized By: REAL SEVILLA Document Signatures Signed By: REAL SEVILLA 07/21/19 08:13 documented in this encounter Plan of Treatment Not on file documented as of this encounter Visit Diagnoses Not on filedocumented in this encounter
--- OUTSIDE RECORDS SUMMARY | 2025-02-03 08:13 | XMS_ITS | Encounter Summary ---
Author Organization [facility] Address [address] [place] [address] Care Team Providers Care Bank Vault Custodian Name Role Phone Zhao Harris MD Primary Care Provider [phone] Encounter Details Date Type Department Care Team [...] drink first t manav in the morning (EYE-PROJECT MANAGER PROCESS DEVELOPMENT) to steady your nerves or to get [...] ([facility] st Contact Info) Description 02/10/2025 8:30 AM EDT Clinical Support P[facility] Hematology/BMT and Cellular Therapy Program [address] [address] 02/10/2025 9:00 AM EDT Office Visit PAV Hematology/BMT and Cellular Therapy Program [address] [address] Elaina Boss, PA 800 [facility] [address] [address] 02/10/2025 10:30 AM EDT Appointment PAV H Infusion 800 [place] [address] 02/11/2025 2:00 PM EDT Appointment [facility] 1 7[address] [place] [address] 02/12/2025 2:00 PM EDT Appointment [facility] 1 [address] [place] [address] 02/13/2025 2:00 PM EDT Appointment [facility] 1 [address] [place] [address] 02/14/2025 2:00 PM EDT Appointment [facility] 1 [address] [place] [address] 03/10/2025 8:30 AM EDT Clinical Support P[facility] Hematology/BMT and Cellular Therapy Program [address] [address] 03/10/2025 9:00 AM EDT Office Visit [facility] Hematology/BMT and Cellular Therapy Program [address] [address] Isaura Wynn, COAL CHUTE WORKER [address] [facility] [address] [address] 03/10/2025 11:20 AM EDT Office Visit Pav CC Head, Neck & Respiratory 800 [facility], 2nd [place] [address] Elsa Razo, COAL CHUTE WORKER 800 [place] [address] documented as of this encounter Visit Diagnoses [...] documented as of this encounter Care Teams Bank Vault Custodian Relationship Specialty Start Date End Date Zhao Harris MD 1210 [facility] [address] [address] PCP - General 12/03/20 documented as of this encounter
--- OUTSIDE RECORDS SUMMARY | 2025-02-03 08:13 | XMS_ITS | Encounter Summary ---
Author Organization [facility] Address [address] [place] [address] Care Team Providers Care Track Repair Person Name Role Phone Zhao Harris MD Primary Care Provider [phone] Reason for Visit * Reason Comments Med Refill Encounter Details Date Type Department Care Team (Late st Contact Info) Description 06/19/2023 Refill [facility] [place] [facility] 800 [facility]. 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 [...] [address] , [address] [place] [address] 02/10/2025 9:00 AM EDT Office Visit PAV Hematology/BMT and Cellular Therapy Program [address] [phone] Elaina Boss, PA 800 [facility] [address] [phone] 02/10/2025 10:30 AM EDT Appointment PAV Infusion 800 [place] [address] 02/11/2025 2:00 PM EDT Appointment [facility] 1 744 [place] [address] 02/12/2025 2:00 PM EDT Appointment [facility] 1 744 [place] [address] 02/13/2025 2:00 PM EDT Appointment [facility] 1 744 [place] [address] 02/14/2025 2:00 PM EDT Appointment [facility] 1 744 [place] [address] 03/10/2025 8:30 AM EDT Clinical Support [facility] Hematology/BMT and Cellular Therapy Program [address] [phone] 03/10/2025 9:00 AM EDT Office Visit [facility] Hematology/BMT and Cellular Therapy Program [address] [address] Isaura Wynn, SKIN SPECIALIST 800 [facility] [address] [phone] 03/10/2025 11:20 AM EDT Office Visit Pav Head[facility] Neck & Respiratory 800 [facility], 2nd [place] [address] Elsa Razo, SKIN SPECIALIST 800 [place] [address] documented as of this encounter Visit Diagnoses Diagnosis Hypertension, unspecified type 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
--- OUTSIDE RECORDS SUMMARY | 2025-02-03 08:13 | XMS_ITS | Encounter Summary ---
Author Organization [facility] Address [address] [place] [address] Care Team Providers Care Technical Producer Name Role Phone Zhao Harris MD Primary Care Provider [phone] Encounter Details Date Type Department Care Team (Late st Contact Info) Description 01/27/2025 Telephone PAV A Interventional Radiology [address] [place] [address] Bandar Cleary, RN Social History Tobacco Use [...] drink first t manav in the morning (EYE-SWITCH OPERATOR) to steady your nerves or to [...] Hematology/BMT and Cellular Therapy Program [address] [address] 02/10/2025 9:00 AM EDT Office Visit [facility] Hematology/BMT and Cellular Therapy Program [address] [address] Elaina Boss, ARAM 800 [facility] [address] [place] [address] 02/10/2025 10:30 AM EDT Appointment PAV H Infusion 800 [place] [address] 02/11/2025 2:00 PM EDT Appointment [facility] 1 744 [place] [address] 02/12/2025 2:00 PM EDT Appointment [facility] 1 744 [place] [address] 02/13/2025 2:00 PM EDT Appointment [facility] 1 744 [place] [address] 02/14/2025 2:00 PM EDT Appointment [facility] 1 744 [place] [address] 03/10/2025 8:30 AM EDT Clinical Support [facility] Hematology/BMT and Cellular Therapy Program [address] [address] 03/10/2025 9:00 AM EDT Office Visit PAV Hematology/BMT and Cellular Therapy Program [address] [phone] Isaura Wynn, NEGOTIATIONS DIRECTOR 800 [facility] [address] [place] [address] 03/10/2025 11:20 AM EDT Office Visit Pav CC Head, Neck & Respiratory 800 [facility], 2nd [place] [address] Elsa Razo, NEGOTIATIONS DIRECTOR 800 [place] [address] documented as of this encounter [...] documented as of this encounter Care Teams Technical Producer Relationship Specialty Start Date End Date Zhao Harris MD 1210 [facility] [address] [place] [address] PCP - General 12/03/20 documented as of this encounter
--- OUTSIDE RECORDS SUMMARY | 2025-02-03 08:13 | XMS_ITS | Encounter Summary ---
Author Organization [facility] Address [address] [place] [address] Care Team Providers Care Substation Manager Name Role Phone Zhao Harris MD Primary Care Provider [phone] Reason for Visit * Reason Onset Date Comments Distress Screen Follow-up 11/25/2024 Encounter Details Date Type Department Care Team (Late st Contact Info) Description 11/25/2024 Telephone PAV CC Hematology/BMT and Cellular Therapy Program [address] [place] [address] [place] [address] Michelle Mast Distress Screen Follow-up Social History [...] drink first t manav in the morning (EYE-ACCOUNTS RECEIVABLE PROCESSOR) to steady your nerves or to [...] [facility] st Contact Info) Description 02/10/2025 8:30 AM EDT Clinical Support P[facility] Hematology/BMT and Cellular Therapy Program [address] [address] 02/10/2025 9:00 AM EDT Office Visit PAV Hematology/BMT and Cellular Therapy Program [address] [address] Ealina Boss PA 800 [facility] [address] [place] [address] 02/10/2025 10:30 AM EDT Appointment PAV H Infusion 800 [place] [address] 02/11/2025 2:00 PM EDT Appointment [facility] 1 744 [place] [address] 02/12/2025 2:00 PM EDT Appointment [facility] 1 744 [place] [address] 02/13/2025 2:00 PM EDT Appointment [facility] 1 744 [place] [address] 02/14/2025 2:00 PM EDT Appointment [facility] 1 744 [place] [address] 03/10/2025 8:30 AM EDT Clinical Support PAV CC Hematology/BMT and Cellular Therapy Program [address] [address] 03/10/2025 9:00 AM EDT Office Visit PAV CC Hematology/BMT and Cellular Therapy Program [address] [address] Isaura Wynn, JEWELRY BENCH MOLDER 800 [facility] [address] [place] [phone] 03/10/2025 11:20 AM EDT Office Visit Pav CC Head, Neck & Respiratory 800 [facility], 2nd [place] [address] Elsa Razo, JEWELRY BENCH MOLDER 800 [place] [phone] documented as of this encounter Visit Diagnoses [...] documented as of this encounter Care Teams Substation Manager Relationship Specialty Start Date End Date Zhao Harris MD [address] [id number] PCP - General 12/03/20 documented as of this encounter
--- OUTSIDE RECORDS SUMMARY | 2025-02-03 08:13 | XMS_ITS | Encounter Summary ---
Author Organization [facility] Address [address] [place] [address] Care Team Providers Care Machinist Bench Name Role Phone Zhao Harris MD Primary Care Provider [phone] Encounter Details Date Type Department Care Team ([facility] st Contact Info) Description 11/05/2024 Results Follow-Up Pav CC Head, Neck & Respiratory 800 [facility], 2nd [place] [address] Elsa Razo, PET CARE TECHNICIAN 800 [place] [address] Social History Tobacco Use Types Packs/Day Years [...] drink first t manav in the morning (EYE-SIGNALMAN) to steady your nerves or to get [...] Hematology/BMT and Cellular Therapy Program [address] [address] 02/10/2025 9:00 AM EDT Office Visit PAV Hematology/BMT and Cellular Therapy Program [address] [address] Elaina Boss PA 800 [facility] [address] [place] [address] 02/10/2025 10:30 AM EDT Appointment PAV H Infusion 800 [place] [address] 02/11/2025 2:00 PM EDT Appointment [facility] 1 744 [place] [address] 02/12/2025 2:00 PM EDT Appointment [facility] 1 744 [place] [address] 02/13/2025 2:00 PM EDT Appointment [facility] 1 744 [place] [address] 02/14/2025 2:00 PM EDT Appointment [facility]fusion [facility] 1 744 [place] [address] 03/10/2025 8:30 AM EDT Clinical Support PAV CC Hematology/BMT and Cellular Therapy Program [address] [address] 03/10/2025 9:00 AM EDT Office Visit PAV Hematology/BMT and Cellular Therapy Program [address] [address] Isaura Wynn, PET CARE TECHNICIAN 800 [facility] [address] [place] [phone] 03/10/2025 11:20 AM EDT Office Visit Pav CC Head, Neck & Respiratory 800 [facility], 2nd [place] [phone] Elsa Razo, PET CARE TECHNICIAN 800 [place] [phone] documented as of this encounter Visit Diagnoses [...] documented as of this encounter Care Teams Machinist Bench Relationship Specialty Start Date End Date Zhao Harris MD [address] [address] PCP - General 12/03/20 documented as of this encounter
--- OUTSIDE RECORDS SUMMARY | 2025-02-03 08:13 | XMS_ITS | Encounter Summary ---
Author Organization [facility] Address [address] [place] [address] Care Team Providers Care Microfilmer Name Role Phone Zhao Harris MD Primary Care Provider [phone] Encounter Details Date Type Department Care Team [...] drink first t manav in the morning (EYE-INFECTION CONTROL PREVENTIONIST) to steady your nerves or to get [...] ([facility] st Contact Info) Description 02/10/2025 8:30 AM EDT Clinical Support PAV Hematology/BMT and Cellular Therapy Program [address] [address] 02/10/2025 9:00 AM EDT Office Visit PAV Hematology/BMT and Cellular Therapy Program [address] [address] Elaina Boss, PA 800 [facility] [address] [address] 02/10/2025 10:30 AM EDT Appointment PAV H Infusion 800 [place] [address] 02/11/2025 2:00 PM EDT Appointment [facility] 1 744 [place] [address] 02/12/2025 2:00 PM EDT Appointment [facility] 1 744 [place] [address] 02/13/2025 2:00 PM EDT Appointment [facility]fusion [facility] 1 744 [place] [address] 02/14/2025 2:00 PM EDT Appointment [facility] 1 744 [place] [address] 03/10/2025 8:30 AM EDT Clinical Support [facility] Hematology/BMT and Cellular Therapy Program [address] [address] 03/10/2025 9:00 AM EDT Office Visit PAV Hematology/BMT and Cellular Therapy Program [address] [address] Isaura Wynn, BAND DIRECTOR [address] [facility] [address] [address] 03/10/2025 11:20 AM EDT Office Visit Pav CC Head, Neck & Respiratory 800 [facility], 2nd [place] [address] Elsa Razo, BAND DIRECTOR 800 [place] [address] documented as of this encounter Visit Diagnoses [...] documented as of this encounter Care Teams Microfilmer Relationship Specialty Start Date End Date Zhao Harris MD 1210 [facility] 36[place] [address] PCP - General 12/03/20 documented as of this encounter
--- OUTSIDE RECORDS SUMMARY | 2025-02-03 08:13 | XMS_ITS | Encounter Summary ---
Author Organization [facility] Address [address] [place] [address] Care Team Providers Care Seal Delivery Vehicle Officer Name Role Phone Zhao Harris MD Primary Care Provider [phone] Encounter Details Date Type Department Care Team [...] drink first t manav in the morning (EYE-DYNAMIC BALANCER) to steady your nerves or to get [...] ([facility] st Contact Info) Description 02/10/2025 8:30 AM EDT Clinical Support PAV Hematology/BMT and Cellular Therapy Program [address] [address] 02/10/2025 9:00 AM EDT Office Visit PAV Hematology/BMT and Cellular Therapy Program [address] [address] Elaina Boss, PA 800 [facility] [address] [address] 02/10/2025 10:30 AM EDT Appointment PAV H Infusion 800 [place] [address] 02/11/2025 2:00 PM EDT Appointment [facility] Infusion [facility] 1 744 [place] [address] 02/12/2025 2:00 PM EDT Appointment [facility] Infusion [facility] 1 744 [place] [address] 02/13/2025 2:00 PM EDT Appointment [facility]fusion [facility] 1 [address] [place] [address] 02/14/2025 2:00 PM EDT Appointment [facility] Infusion [facility] 1 [address] [place] [address] 03/10/2025 8:30 AM EDT Clinical Support PAV Hematology/BMT and Cellular Therapy Program [address] [address] 03/10/2025 9:00 AM EDT Office Visit PAV Hematology/BMT and Cellular Therapy Program [address] [address] Isaura Wynn, NEGATIVE ASSEMBLER [address] [facility] [address] [address] 03/10/2025 11:20 AM EDT Office Visit Pav CC Head, Neck & Respiratory 800 [facility], 2nd [place] [address] Elsa Razo, NEGATIVE ASSEMBLER 800 [place] [address] documented as of this encounter [...] documented as of this encounter Care Teams Seal Delivery Vehicle Officer Relationship Specialty Start Date End Date Zhao Harris MD 1210 [facility] 36[place] [address] PCP - General 12/03/20 documented as of this encounter
--- OUTSIDE RECORDS SUMMARY | 2025-02-03 08:13 | XMS_ITS | Encounter Summary ---
Author Organization [facility] Address [address] [place] [address] Care Team Providers Care Biologist Name Role Phone Zhao Harris MD Primary Care Provider [phone] Encounter Details Date Type Department Care Team [...] drink first t manav in the morning (EYE-VISITING HOUSEKEEPER) to steady your nerves or to get [...] Team ([facility] st Contact Info) Description 02/10/2025 8:30 AM EDT Clinical Support PAV Hematology/BMT and Cellular Therapy Program [address] [address] 02/10/2025 9:00 AM EDT Office Visit PAV Hematology/BMT and Cellular Therapy Program [address] [address] Elaina Boss, PA 800 [facility] [address] [address] 02/10/2025 10:30 AM EDT Appointment PAV H Infusion 800 [place] [address] 02/11/2025 2:00 PM EDT Appointment [facility] Infusion [facility] 1 744 [place] [address] 02/12/2025 2:00 PM EDT Appointment [facility] Infusion [facility] 1 744 [place] [address] 02/13/2025 2:00 PM EDT Appointment [facility] Infusion [facility] 1 744 [place] [address] 02/14/2025 2:00 PM EDT Appointment [facility]fusion [facility] 1 [address] [place] [address] 03/10/2025 8:30 AM EDT Clinical Support PAV Hematology/BMT and Cellular Therapy Program [address] [address] 03/10/2025 9:00 AM EDT Office Visit PAV Hematology/BMT and Cellular Therapy Program [address] [address] Isaura Wynn, ALTO SINGER [address] [facility] [address] [address] 03/10/2025 11:20 AM EDT Office Visit Pav CC Head, Neck & Respiratory 800 [facility], 2nd [place] [address] Elsa Razo, ALTO SINGER 800 [place] [address] documented as of this encounter [...] documented as of this encounter Care Teams Biologist Relationship Specialty Start Date End Date Zhao Harris MD 1210 [facility] 36[place] [address] PCP - General 12/03/20 documented as of this encounter
--- OUTSIDE RECORDS SUMMARY | 2025-02-03 08:13 | XMS_ITS | Clinical Summary ---
Author Organization [facility] ([place], [place], [place], [place]) Address [address] [place] [address] Care Team Providers Care Bar Examiner Name Role Phone Unavailable Primary Care Provider [...]
--- OUTSIDE RECORDS SUMMARY | 2025-02-03 08:14 | XMS_ITS | Encounter Summary ---
Author Organization [facility] Address [address] [place] [address] Care Team Providers Care Information Clerk Cashier Name Role Phone Zhao Harris MD Primary Care Provider [phone] Reason for Visit * Reason Comments Med Refill Encounter Details Date Type Department Care Team ([facility] Contact Info) Description 01/18/2022 Refill [facility] [place] [address] [facility], [address] [place] [address] Regina Hill PA 800 [place] [address] Hypertension, unspecified type Social History [...] Hematology/BMT and Cellular Therapy Program [address] [phone] 02/10/2025 9:00 AM EDT Office Visit PAV CC Hematology/BMT and Cellular Therapy Program [address] [place] [address] Elaina Boss PA 800 [facility] [address] [place] [phone] 02/10/2025 10:30 AM EDT Appointment PAV H Infusion 800 [place] [address] 02/11/2025 2:00 PM EDT Appointment [facility] Infusion Clinic 1 744 [place] [address] 02/12/2025 2:00 PM EDT Appointment [facility]fusion [facility] 1 [address] [place] [address] 02/13/2025 2:00 PM EDT Appointment [facility] Infusion [facility] 1 7[address] [place] [address] 02/14/2025 2:00 PM EDT Appointment [facility] Infusion [facility] 1 [address] [place] [address] 03/10/2025 8:30 AM EDT Clinical Support PAV CC Hematology/BMT and Cellular Therapy Program [address] [address] 03/10/2025 9:00 AM EDT Office Visit PAV CC Hematology/BMT and Cellular Therapy Program [address] [phone] Isaura Wynn, ESTRELLA 800 [facility] [address] [place] [phone] 03/10/2025 11:20 AM EDT Office Visit Pav CC Head, Neck & Respiratory 800 [facility], 2nd [place] [phone] Elsa Razo, CLEANER OPERATOR 800 [place] [address] documented as of this encounter Visit Diagnoses Diagnosis Hypertension, unspecified type documented in this encounter Additional Health Concerns Infection Onset Date Last Indicated Resolved Time Respiratory Rule-Out 11/03/2024 11/03/2024 025 5:17 PM EDT documented as of this encounter Care Teams Information Clerk Cashier Relationship Specialty Start Date End Date Zhao Harris MD 12[address] [place] [id number] PCP - General 12/03/20 documented as of this encounter
--- OUTSIDE RECORDS SUMMARY | 2025-02-03 08:14 | XMS_ITS | Encounter Summary ---
Author Organization [facility] Address [address] [place] [address] Care Team Providers Care Can Pusher Name Role Phone Zhao Harris MD Primary Care Provider [phone] Encounter Details Date Type Department Care Team ([facility] st Contact Info) Description 01/22/2025 Telephone PAV CC Hematology/BMT and Cellular Therapy Program [address] [address] Virgen Vargas MD 800 [facility] [address] [place] [address] Social History Tobacco Use Types Packs/Day Years [...] drink first t manav in the morning (EYE-ROTARY DRUM TANNER) to steady your nerves or to get [...] - 01/22/2025 3:50 PM EDT Callback number: [phone] [facility] calling to obtain patient's insurance information documented in this encounter Plan of Treatment Upcoming Encounters Date Type Department Care Team ([facility] st Contact Info) Description 02/10/2025 8:30 AM EDT Clinical Support P[facility] CC Hematology/BMT and Cellular Therapy Program [address] [address] 02/10/2025 9:00 AM EDT Office Visit PAV CC Hematology/BMT and Cellular Therapy Program [address] [address] Elaina Boss PA 800 [facility] [address] [place] [address] 02/10/2025 10:30 AM EDT Appointment PAV H Infusion 800 [place] [address] 02/11/2025 2:00 PM EDT Appointment [facility] 1 744 [place] [address] 02/12/2025 2:00 PM EDT Appointment [facility] 1 7[address] [place] [address] 02/13/2025 2:00 PM EDT Appointment [facility] 1 [address] [place] [address] 02/14/2025 2:00 PM EDT Appointment [facility] 1 [address] [place] [address] 03/10/2025 8:30 AM EDT Clinical Support P[facility] CC Hematology/BMT and Cellular Therapy Program [address] [address] 03/10/2025 9:00 AM EDT Office Visit PAV CC Hematology/BMT and Cellular Therapy Program [address] [address] Isaura Wynn, TILE SORTER 800 [facility] [address] [place] [phone] 03/10/2025 11:20 AM EDT Office Visit Pav CC Head, Neck & Respiratory 800 [facility], 2nd [place] [phone] Elsa Razo, TILE SORTER 800 [place] [phone] documented as of this encounter Visit Diagnoses [...] documented as of this encounter Care Teams Can Pusher Relationship Specialty Start Date End Date Zhao Harris MD 1210 [facility] [address] [place] [address] PCP - General 12/03/20 documented as of this encounter
--- OUTSIDE RECORDS SUMMARY | 2025-02-03 08:14 | XMS_ITS | Encounter Summary ---
Author Organization [facility] Address [address] [place] [address] Care Team Providers Care President [place] [employer] Name Role Phone Zhao Harris MD Primary Care Provider [phone] Reason for Visit * Reason Comments Med Refill Encounter Details Date Type Department Care Team ([facility] Contact Info) Description 02/20/2022 Refill [facility] [place] [address] [facility], [address] [place] [address] Regina Hill PA [address] [place] [address] Social History Tobacco Use Types [...] Upcoming Encounters Date Type Department Care Team ([facility] Contact Info) Description 02/10/2025 8:30 AM EDT Clinical Support [facility] H[facility]ology[facility] Cellular Therapy [facility] [address] [phone] 02/10/2025 9:00 AM EDT Office Visit [facility] [address] [phone] Elaina Boss PA 800 [facility] [address] [place] [phone] 02/10/2025 10:30 AM EDT Appointment [facility] [address] [place] [address] 02/11/2025 2:00 PM EDT Appointment [facility] 1 [address] [place] [address] 02/12/2025 2:00 PM EDT Appointment [facility] 1 [address] [place] [address] 02/13/2025 2:00 PM EDT Appointment [facility] 1 [address] [place] [address] 02/14/2025 2:00 PM EDT Appointment [facility] 1 [address] [place] [address] 03/10/2025 8:30 AM EDT Clinical Support [facility] [address] [place] [address] 03/10/2025 9:00 AM EDT Office Visit [facility] [address] [phone] Isaura Wynn, ASE MASTER MECHANIC 800 [facility] [address] [place] [phone] 03/10/2025 11:20 AM EDT Office Visit [facility] 800 [facility], [address] [place] [phone] Elsa Razo, ASE MASTER MECHANIC [address] [place] [phone] documented as of this encounter Visit Diagnoses Not on filedocumented in this encounter Additional Health Concerns Infection Onset Date Last Indicated Resolved Time Respiratory Rule-Out 11/03/2024 11/03/2024 025 5:17 PM EDT documented as of this encounter Care Teams President [place] Relationship Specialty Start Date End Date Zhao Harris MD [address] [place] [address] PCP - General 12/03/20 documented as of this encounter
--- OUTSIDE RECORDS SUMMARY | 2025-02-03 08:14 | XMS_ITS | Encounter Summary ---
Author Organization [facility] Address [address] 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, unspecified vessel or [...] Hematology/BMT and Cellular Therapy Program [address] [place] [phone] 02/10/2025 9:00 AM EDT Office Visit [facility] [address] [place] [phone] Elaina Boss, PA 800 [facility] [address] [place] [phone] 02/10/2025 10:30 AM EDT Appointment [facility] [address] [place] [phone] 02/11/2025 2:00 PM EDT Appointment [facility] 1 [address] [place] [phone] 02/12/2025 2:00 PM EDT Appointment [facility] 1 [address] [place] [phone] 02/13/2025 2:00 PM EDT Appointment [facility] 1 [address] [place] [phone] 02/14/2025 2:00 PM EDT Appointment [facility] 1 [address] [place] [phone] 03/10/2025 8:30 AM EDT Clinical Support [facility] [address] [phone] 03/10/2025 9:00 AM EDT Office Visit [facility] [address] [phone] Isaura Wynn, CASING TRIMMER 800 [facility] [address] [place] [phone] 03/10/2025 11:20 AM EDT Office Visit [facility] 800 [facility], [address]nd [place] [phone] Elsa Razo, CASING TRIMMER [address] [place] [phone] documented as of this encounter Visit Diagnoses Diagnosis 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
[2025-02-03 08:26] LABS: Hematocrit 21.7 % (42.0-52.0); Hemoglobin 7.6 g/dL (14.1-18.0); Immature Granulocytes % 0 %; Mean Corpuscular HGB Conc 35.0 g/dL (31.8-35.4); Mean Corpuscular Hemoglobin 28.6 pg (27.0-31.2); Mean Corpuscular Volume 81.6 fl (80-94); Nucleated Red Blood Cells % 0 %; Red Blood Count 2.66 M/mm3 (4.60-6.20); Red Cell Distribution Width-SD 37.0 fL
[2025-02-03 08:30] LABS: Platelet Count 2 K/mm3 (142-424); White Blood Count 0.4 K/mm3 (4.8-10.8)
[2025-02-03 08:46] LABS: Alanine Aminotransferase 24 U/L (12-78); Albumin Level 3.9 g/dl (3.5-5.0); Albumin/Globulin Ratio 1.3 (1.1-1.8); Alkaline Phosphatase 95 U/L (38-126); Anion Gap 15.7 mEq/L (5-15); Aspartate Amino Transferase 25 U/L (17-59); Bilirubin,Total 0.8 mg/dl (0.2-1.3); Blood Urea Nitrogen 9 mg/dl (9-20); Calcium 8.9 mg/dl (8.4-10.2); Carbon Dioxide 20 mmol/L (22.0-30.0); Chloride 103 mmol/L (98-107); Creatinine Clearance Estimated 89 mL/min (50-200); Creatinine,Serum 0.70 mg/dl (0.66-1.25); Estimated Glomerular Filt Rate 112 ml/min (>60); GFR (African American) 135 ML/MIN (>60); Globulin 3.0 g/dL (1.3-3.2); Glucose 115 mg/dl (74-100); Potassium 3.7 mmoL/L (3.5-5.1); Sodium 135 mmol/L (136-145); Total Protein,Serum 6.9 g/dl (6.3-8.2)
[2025-02-03 09:27] LABS: RBC Morphology Normal; Total Cells Counted 25
[2025-02-03] MEDS: ACETAMINOPHEN 325MG TAB 650 MG (13:32)
== END 2025-02-03 23:59 | disposition home or self-care (01) ==
LOC: INF 08:09
PROVIDERS: PCP Family Medicine; Visit Provider Internal Medicine Medical Oncology
DX: D46.9 Myelodysplastic syndrome, unspecified (principal)
CPT/HCPCS: 36415; 36430; 80053; 85007; 85025; 85027; 86850; J1642; P9016; P9034